=== PATIENT | male | born 1940 | race African-American/Black ===

== ENCOUNTER 2019-10-14 09:47 | Outpatient (CLI) | payer MEDICARE, SELFPAY ==
[2019-10-14 10:28] LABS: Basophils Absolute Auto 0.1 K/mm3 (0.0-0.1); Basophils Percent Auto 0.8 % (0.2-1.2); Eosinophils Absolute Auto 0.1 K/mm3 (0-0.3); Eosinophils Percent Auto 0.8 % (0-4.4); Hematocrit 37.8 % (42.0-52.0); Hemoglobin 11.8 g/dL (14.0-18.0); Immature Granulocyte Absolute 0.01 K/mm3 (0.00-0.031); Immature Granulocyte Percent A 0.2 % (0-0.5); Lymphocytes Absolute Auto 1.97 K/mm3 (0.9-3.2); Lymphocytes Percent Auto 32.9 % (18.3-44.2); Mean Corpuscular HGB Conc 31.2 g/dl (32-36); Mean Corpuscular Hemoglobin 27.8 pg (26-34); Mean Corpuscular Volume 88.9 fl (80-100); Mean Platelet Volume 11.2 fl (7.4-10.4); Monocytes Absolute Auto 0.6 K/mm3 (0.1-0.6); Neutrophils Absolute Auto 3.3 K/mm3 (1.3-6.7); Neutrophils Percent Auto 55.3 % (45.5-73.1); Platelet Count Result 198 k/mm3 (150-375); Red Blood Count 4.25 M/mm3 (4.6-6.20); Red Cell Distribution Width 14.9 % (11.5-14.5)
[2019-10-14 10:39] LABS: Alanine Aminotransferase 18 U/L (4-50); Albumin Level 3.8 g/dL (3.5-5.1); Alkaline Phosphatase 108 U/L (38-126); Aspartate Amino Transferase 27 U/L (17-59); Bilirubin,Total 0.6 mg/dL (0.2-1.3); Blood Urea Nitrogen 26 mg/dL (9-20); Calcium 8.3 mg/dL (8.4-10.2); Carbon Dioxide 27 mmol/L (22-30); Chloride 102 mmol/L (98-107); Cholesterol 137 mg/dL (0-200); Estimated Glomerular Filt Rate > 60; Glucose 131 mg/dL (75-110); HDL Direct 33 mg/dL; Potassium 3.7 mmol/L (3.4-5.0); Sodium 140 mmol/L (137-145); Triglycerides 115 mg/dL (<150)
[2019-10-14 10:50] LABS: LDL Cholesterol Direct 74 mg/dL
[2019-10-14 11:05] LABS: Add Urine Microscopic? YES; Appearance Urine Clear (Clear); Bilirubin Urine Negative (Negative); Blood Urine 1+ (Negative); Color Urine Yellow (Yellow); Glucose Urine UA Negative (Negative); Ketones Urine Negative (Negative); Leukocyte Esterase Ur Negative LEU/UL (NEGATIVE); Mucus Urine Rare /lpf; Nitrate Urine Negative (Negative); Protein Urine 2+ mg/dL (Negative); Specific Grav Ur 1.017 (1.001-1.035); Squamous Epithelial Cell Urine Rare /hpf (Few); WBC Urine 0-3 /hpf (0-3)
[2019-10-14 12:16] LABS: Hemoglobin A1C 6.9 % (<5.7)
[2019-10-14 12:18] LABS: Creatinine Urine 124.7 mg/dL
[2019-10-14 14:01] LABS: Microalbumin Urine Random > 1140.0 mg/L (0-16.7)
== END 2019-10-14 09:48 | disposition home or self-care (01) ==
PROVIDERS: PCP Family Medicine; Visit Provider Family Medicine
DX: E11.9 Type 2 diabetes mellitus without complications (principal); E78.2 Mixed hyperlipidemia; R53.83 Other fatigue; I10 Essential (primary) hypertension
CPT/HCPCS: 36415; 80053; 80061; 81001; 82043; 83036; 84443; 85025; 85027

== ENCOUNTER 2020-02-24 09:48 | Outpatient (CLI) | payer MEDICARE, SELFPAY ==
[2020-02-24 10:24] LABS: Basophils Percent Auto 0.4 % (0.2-1.2); Eosinophils Absolute Auto 0.1 K/mm3 (0-0.3); Eosinophils Percent Auto 0.7 % (0-4.4); Hematocrit 35.4 % (42.0-52.0); Hemoglobin 11.2 g/dL (14.0-18.0); Immature Granulocyte Absolute 0.03 K/mm3 (0.00-0.031); Immature Granulocyte Percent A 0.4 % (0-0.5); Lymphocytes Absolute Auto 2.01 K/mm3 (0.9-3.2); Mean Corpuscular HGB Conc 31.6 g/dl (32-36); Mean Corpuscular Hemoglobin 28.7 pg (26-34); Mean Corpuscular Volume 90.8 fl (80-100); Monocytes Absolute Auto 0.8 K/mm3 (0.1-0.6); Monocytes Percent Auto 10.1 % (2.6-8.5); Neutrophils Absolute Auto 4.6 K/mm3 (1.3-6.7); Neutrophils Percent Auto 61.4 % (45.5-73.1); Platelet Count Result 152 k/mm3 (150-375); White Blood Count 7.5 K/mm3 (4.5-10.0)
[2020-02-24 10:32] LABS: Hemoglobin A1C 6.6 % (<5.7)
[2020-02-24 10:54] LABS: Alanine Aminotransferase 13 U/L (4-50); Albumin Level 3.5 g/dL (3.5-5.1); Alkaline Phosphatase 93 U/L (38-126); Anion Gap 9.2 mmol/L (7-16); Aspartate Amino Transferase 25 U/L (17-59); Bilirubin,Total 0.5 mg/dL (0.2-1.3); Blood Urea Nitrogen 25 mg/dL (9-20); Calcium 7.9 mg/dL (8.4-10.2); Carbon Dioxide 31 mmol/L (22-30); Chloride 102 mmol/L (98-107); Estimated Glomerular Filt Rate > 60; Glucose 135 mg/dL (75-110); Potassium 3.2 mmol/L (3.4-5.0); Sodium 139 mmol/L (137-145)
== END 2020-02-24 09:49 | disposition home or self-care (01) ==
PROVIDERS: PCP Family Medicine; Visit Provider Physician Assistant
DX: D64.9 Anemia, unspecified (principal); E11.40 Type 2 diabetes mellitus with diabetic neuropathy, unspecified; I10 Essential (primary) hypertension
CPT/HCPCS: 36415; 80053; 83036; 85025

== ENCOUNTER 2020-06-23 08:16 | Outpatient (CLI) | payer MEDICARE, SELFPAY ==
[2020-06-23 08:45] LABS: Hemoglobin A1C 6.3 % (<5.7)
[2020-06-23 08:49] LABS: Alanine Aminotransferase 15 U/L (4-50); Albumin Level 3.9 g/dL (3.5-5.1); Alkaline Phosphatase 102 U/L (38-126); Anion Gap 8 mmol/L (8-16); Aspartate Amino Transferase 28 U/L (17-59); Bilirubin,Total 0.6 mg/dL (0.2-1.3); Blood Urea Nitrogen 36 mg/dL (9-20); Calcium 8.5 mg/dL (8.4-10.2); Carbon Dioxide 29 mmol/L (22-30); Chloride 106 mmol/L (98-107); Estimated Glomerular Filt Rate > 60; Glucose 137 mg/dL (75-110); Potassium 3.7 mmol/L (3.4-5.0); Sodium 143 mmol/L (137-145)
== END 2020-06-23 08:17 | disposition home or self-care (01) ==
PROVIDERS: PCP Family Medicine; Visit Provider Physician Assistant
DX: E11.29 Type 2 diabetes mellitus with other diabetic kidney complication (principal); R80.9 Proteinuria, unspecified; I10 Essential (primary) hypertension
CPT/HCPCS: 36415; 80053; 83036

== ENCOUNTER 2020-10-08 02:21 | Inpatient (IN) | payer MEDICARE, SELFPAY ==
[2020-10-08] VITALS (21 sets, daily range): BP systolic 108–159; BP diastolic 57–92; PULSE 60–102; RESP 18–27; TEMP 36.3–37; O2SAT 81–100; BMI 37.5
--- NOTE | ~2020-10-08 | XR_ITS ---
EXAMINATION: XR chest 1V portable EXAM DATE: 10/08/2020 03:23 INDICATION: Shortness of air, cough. Phlegm. TECHNIQUE: Portable AP frontal chest x-ray was obtained. Comparison is made to prior examination from 12/16/2017. FINDINGS: There is moderate amount of bilateral airspace disease with relative sparing of the left up per lobe. Some linear left midlung zone atelectasis. Possible small pleural effusions. No pneumothora x. The cardiomediastinal silhouette is prominent but magnified on this AP technique. Spine stimulator leads are new compared to 2018. IMPRESSION: Moderate amount of bilateral ill-defined airspace disease, likely edema or infection. Reviewed, dictated and finalized at location A. CUTTER
--- NOTE | ~2020-10-08 | XR_ITS ---
EXAMINATION: XR chest 1V portable INDICATION: Shortness of breath TECHNIQUE: Portable AP chest at 0532 hours COMPARISON: 10/08/2020 FINDINGS: Diffuse airspace opacities persist with interval improvement. There is no pleural effusion or pneumothorax. The heart size is normal. Neurostimulator leads project over the midthoracic spine. IMPRESSION: 1. Diffuse lung disease with interval improvement, consistent with pneumonia and/or pulmonary edema. Reviewed, dictated and finalized at location A. K PITCHER IMPRESSION: 1. Diffuse lung disease with interval improvement, consistent with pneumonia an d/or pulmonary edema.
--- NOTE | ~2020-10-08 | US_ITS ---
EXAMINATION: US venous doppler LE EXAM DATE: 10/08/2020 13:27 INDICATION: Bilateral lower extremity swelling. TECHNIQUE: Multiple grayscale, color flow and Doppler images of the lower extremity deep venous syste ms bilaterally were obtained and reviewed. There is no prior study for comparison. FINDINGS: Right side: The right common femoral, femoral and profunda veins demonstrate normal color flow, respi ratory variation, augmentation and compressibility. Compressibility, color flow confirmed within the right popliteal, posterior tibial, and greater saphenous veins. Left side: The left common femoral, femoral and profunda veins demonstrate normal color flow, respira tory variation, augmentation and compressibility. Compressibility, color flow confirmed within the l eft popliteal, posterior tibial, peroneal, and greater saphenous veins. IMPRESSION: 1. No lower extremity deep venous thrombosis bilaterally. Reviewed, dictated and finalized at location A. PAYROLL COORDINATOR
--- NOTE | ~2020-10-08 | CT_ITS ---
EXAMINATION: CT diagnostic chest wo con DATE: 10/08/2020 13:01 INDICATION: Shortness of breath TECHNIQUE: Computed tomography (CT) of the chest was performed without intravenous contrast. The dose -length product (DLP) was 546.93 mGy-cm. Automated exposure control and iterative reconstruction tech nique were employed. COMPARISON: None FINDINGS: There are small pleural effusions. There are patchy groundglass opacities of the upper lobe s, right greater than left, and the lower lobes. There is no pneumothorax. No pathologically enlarged thoracic lymph nodes are identified. The heart size is normal. Calcified coronary artery atheroscler osis is noted. There is severe thoracic spondylosis. Neurostimulator leads end in the central spinal canal at the level of the T7 vertebral body. Cysts of the liver measure up to 1.8 cm in the right he patic lobe. IMPRESSION: 1. Diffuse groundglass opacities of the lungs which could reflect pulmonary edema and/or atypical pne umonia such as COVID 19 pneumonia. 2. Small pleural effusions. Reviewed, dictated and finalized at location A. TREAT OPERATOR IMPRESSION: 1. Diffuse groundglass opacities of the lungs which could reflect pulmonary nissa ma and/or atypical pneumonia such as COVID 19 pneumonia. 2. Small pleural effusions.
--- NOTE | ~2020-10-08 | US_ITS ---
EXAMINATION: US renal BI EXAM DATE: 10/08/2020 13:27 INDICATION: Renal failure. Leg swelling. TECHNIQUE: Multiple grayscale and Doppler images of the kidneys were obtained (by a technologist who performed the scan) and subsequently reviewed. Correlation is made to CT urogram 06/24/2011. FINDINGS: Right kidney: There is normal contour and echogenicity. It measures 11.2 x 6.4 x 6.4 centimeters. Th ere are several hypoechoic regions consistent with cysts measuring up to 4 cm. Several smaller cystic regions. There is no hydronephrosis. Left kidney: There is normal contour and echogenicity. It measures 10.5 x 5.5 x 5.5 centimeters. The re is an indeterminate cystic lesion midpole of the left kidney, could be a perihilar hemorrhagic cys t, which was present on CT urogram in 2010 in this location. Other lesions are consistent with cysts. There is no hydronephrosis. Bladder unremarkable. IMPRESSION: 1. Left renal lesion most likely the hemorrhagic cyst identified on urogram 2010. Cystic renal cell cancer is less likely, can have similar appearance but would have likely demonstrated interval growth . 2. No hydronephrosis. Reviewed, dictated and finalized at location A. TAL RETOUCHER IMPRESSION: 1. Left renal lesion most likely the hemorrhagic cyst identified on urogram 20 11. Cystic renal cell cancer is less likely, can have similar appearance but wo uld have likely demonstrated interval growth. 2. No hydronephrosis.
--- NOTE | 2020-10-08 02:30 | ECG_ITS ---
Measurements Intervals [place] Rate: 83 P: 213 LA: 81 QRS: 2 QRSD: 106 T: 143 QT: 381 QTc: 450 Interpretive Statements ATRIAL FIBRILLATION DELAYED PRECORDIAL R/S TRANSITION ST-T WAVE ABNORMALITY IN HIGH LATERAL LEADS- CONSIDER ISCHEMIA ABNORMAL ECG Electronically Signed On 10-08-2020 7:40:56 SKILLED HELPER by Neo Nieto D.O.
[2020-10-08 03:00] LABS: Basophils Absolute Auto 0.1 K/mm3 (0.0-0.1); Basophils Percent Auto 0.4 % (0.2-1.2); Hematocrit 37.9 % (42.0-52.0); Hemoglobin 12.2 g/dL (14.0-18.0); Immature Granulocyte Absolute 0.13 K/mm3 (0.00-0.031); Immature Granulocyte Percent A 0.9 % (0-0.5); Lymphocytes Percent Auto 8.5 % (18.3-44.2); Mean Corpuscular HGB Conc 32.2 g/dl (32-36); Mean Corpuscular Hemoglobin 28.4 pg (26-34); Mean Corpuscular Volume 88.1 fl (80-100); Mean Platelet Volume 11.9 fl (7.4-10.4); Monocytes Absolute Auto 1.1 K/mm3 (0.1-0.6); Monocytes Percent Auto 8.1 % (2.6-8.5); Neutrophils Absolute Auto 11.5 K/mm3 (1.3-6.7); Neutrophils Percent Auto 82.1 % (45.5-73.1); Nucleated Red Blood Cells Perc 0.1 % (0.0-0.2); Platelet Count Result 309 k/mm3 (150-375); Red Cell Distribution Width 17.1 % (11.5-14.5); White Blood Count 14.1 K/mm3 (4.5-10.0)
[2020-10-08 03:13] LABS: Anion Gap 15 mmol/L (8-16); Blood Urea Nitrogen 58 mg/dL (9-20); Calcium 9.3 mg/dL (8.4-10.2); Carbon Dioxide 23 mmol/L (22-30); Chloride 105 mmol/L (98-107); Estimated CRCL calculation 30 ml/min; Estimated Glomerular Filt Rate 33; Glucose 258 mg/dL (75-110); Potassium 3.9 mmol/L (3.4-5.0); Sodium 143 mmol/L (137-145)
[2020-10-08 03:22] LABS: NT Pro B Type Natriuretic Pept 15300 PG/ML (5-100)
[2020-10-08 03:32] LABS: Base Excess ABG -2.1 mEq/l (+/-2.0); Carboxyhemoglobin 0.9 % THb (0-2.0); Fractional Inspired Oxygen 50 %; HCO3 ABG 20.9 mEq/l (22.0-26.0); Methemoglobin ABG 0.3 %THb (0-1.5); Oxygen Saturation ABG 89.6 % (95.0-100.0); PO2 ABG 52.8 mmHg (80.0-100.0); PO2 FiO2 Ratio Arterial Blood 1.06 %; Reduced Hemoglobin 14.8 %THb (0-5.0)
[2020-10-08 03:33] LABS: Device NON-INVASIVE VENT; Modified Allen's Test Pass; Non-Invasive Vent Rate 4 /MIN; Site Drawn RIGHT RADIAL
[2020-10-08 03:34] LABS: Non-Invasive Expiratory Pressure 8 CMH2O; Non-Invasive Inspiratory Pressure 14 CMH2O
[2020-10-08] MEDS: FUROSEMIDE INJ 40 MG/4 ML VIAL IV PUSH ×2 (03:35→14:10)
[2020-10-08 03:46] LABS: INR 1.3; Partial Thromboplastin Time 25.8 SECONDS (22.3-36.8); Prothrombin Time 16.4 Seconds (11.1-14.7)
--- NOTE | 2020-10-08 03:59 | ED.SOB ---
HPI - SOB/Dyspnea General Chief Complaint: Shortness of Breath/Dyspnea Stated Complaint: Sob Time Seen by Provider: 10/08/20 02:26 History of Present Illness HPI Narrative: Patient is a 80-year-old male who presents ER with shortness of breath. Worsening over the last 3-4 days. Denies orthopnea or chest pain. No history of heart failure. He does take Lasix and hydrochlorothiazide. Reports he has increasing edema to his lower extremities over the same period of time. No fevers/chills. He does have nonproductive cough. Of note she did receive his first dose of Covid vaccine this week. Related Data Allergies Allergy/AdvReac Type Severity Reaction Status Date / Time No Known Allergies Unverified 08/15/20 08:35 Review of Systems Review of Systems: All systems reviewed & are unremarkable except as noted in HPI and below Constitutional: Constitutional: Denies chills, Denies fever(s) and Denies weakness ENT: Denies nasal congestion and Denies sore throat Cardiovascular: Cardiovascular: Denies chest pain, Denies rapid heart rate and Denies radiating jaw, neck or arm pain Respiratory: Respiratory: Reports cough, Reports dyspnea and Denies wheezing Gastrointestinal: Gastrointestinal: Denies abdominal pain, Denies diarrhea, Denies nausea and Denies vomiting Musculoskeletal: Musculoskeletal: Denies myalgias and Denies muscle cramps Comments: Lower extremity edema PMFSH Past Medical History Medical History (Updated 10/08/20 @ 06:25 by Justyn Yoder MD) Diabetes mellitus with proteinuria Essential (primary) hypertension Mixed hyperlipidemia Surgical History Surgical History Status post bilateral knee replacements Social History Social History Years smoked: 3 Smoking status: Former smoker Tobacco type: cigarettes Second hand tobacco smoke exposure: No Smoking end date: 08/04/1965 Alcohol intake: never Substance use: never Substance use type: does not use Gender identity (if verbalized by the patient): Male Exam Narrative: Exam Narrative: GENERAL: Uncomfortable-appearing, well-nourished, and in no acute distress. HEAD: Normocephalic, atraumatic. ENT: Mucous membranes moist. CHEST: Coarse rales throughout with increased respiratory rate. HEART: Irregular rhythm with regular rate. Normal peripheral pulses. ABDOMEN: Soft, nontender, nondistended. EXTREMITIES: Normal range of motion. 3+ edema. SKIN: Warm, dry, no rash. NEURO: Alert and oriented x3. PSYCH: Normal mood and affect. Course Course Emergency Course: Admit to the hospitalist. May have pneumonia in addition to pulmonary edema. Will start on abx and swab for covid. Doing well on BiPAP Vital Signs Vital signs: Vital Signs Temperature 97.8 F 10/08/20 02:30 Pulse Rate 80 10/08/20 02:30 Respiratory Rate 24 H 10/08/20 02:30 Blood Pressure 159/87 H 10/08/20 02:30 Pulse Oximetry 81 L 10/08/20 02:30 Temperature 98.2 F 10/08/20 05:45 Pulse Rate 102 H 10/08/20 05:58 Respiratory Rate 27 H 10/08/20 05:58 Blood Pressure 151/76 H 10/08/20 05:45 Pulse Oximetry 95 10/08/20 05:58 MDM - SOB/Dyspnea Lab Data Result diagrams: 10/08/20 02:55 10/08/20 02:55 Labs: Lab Results 10/08/20 10/08/20 10/08/20 Range/Units 02:55 02:55 03:16 WBC 14.1 H (4.5-10.0) K/mm3 RBC 4.30 L (4.6-6.20) M/mm3 Hgb 12.2 L (14.0-18.0) g/dL Hct 37.9 L (42.0-52.0) % MCV 88.1 (80-100) fl MCH 28.4 (26-34) pg MCHC 32.2 (32-36) g/dl RDW 17.1 H (11.5-14.5) % Plt Count 309 D (150-375) k/mm3 MPV 11.9 H (7.4-10.4) fl Immature Gran % (Auto) 0.9 H (0-0.5) % Neut % (Auto) 82.1 H (45.5-73.1) % Lymph % (Auto) 8.5 L (18.3-44.2) % [place] % (Auto) 8.1 (2.6-8.5) % Eos % (Auto) 0.0 (0-4.4) % Baso % (Auto) 0.4 (0.2-1.2) % Lymph # (Aut
[2020-10-08 05:09] LABS: Lactic Acid Reflex 2.5 mmol/L (0.7-2.1)
--- NOTE | 2020-10-08 07:11 | PC.NURSE ---
This patient, Khalif Yanez, was admitted to IMU Room 231-01. Patient/family oriented to hospital policies and general routines including ID bracelet, bed and alarms, visiting hours, pain management, procedures, bathroom and other care routines, personal items, smoking policy, room service/diet, and visiting hours. Information on how to activate the Rapid Response Team has been discussed. Patient/Family are encouraged to report perceived risks to care and to ask questions if they do not understand what they are told or what they should do.
[2020-10-08 07:56] LABS: Reflex Lactic Acid Yes or No Add Lactic
[2020-10-08 07:56] LABS: Glucose Point of Care 216 (65-105)
--- NOTE | 2020-10-08 08:00 | ECG_ITS ---
Measurements Intervals [place] Rate: 64 P: 71 SC: 366 QRS: -5 QRSD: 94 T: 160 QT: 400 QTc: 414 Interpretive Statements ATRIAL FIBRILLATION CANNOT RULE OUT SEPTAL INFARCT, AGE INDETERMINATE ST-T WAVE ABNORMALITY IN LAT/HIGH LAT LEADS- CONSIDER ISCHEMIA BASELINE ARTIFACT- I, II, III, AVR, AVL, AVF, V2 ABNORMAL ECG Electronically Signed On 10-08-2020 9:19:08 RUBBER THREAD SPOOLER by Neo Nieto D.O.
[2020-10-08 10:30] LABS: Lactic Acid 1.8 mmol/L (0.7-2.1)
[2020-10-08 10:43] LABS: Troponin I 0.048 ng/mL (0.000-0.034)
--- NOTE | 2020-10-08 11:32 | PM.IMHP ---
H&P: HPI History of Present Illness Date/Time: 10/08/20 11:32 Chief Complaint: shortness of breath Narrative: Khalif Yanez is a 80 year old male who presents ER with shortness of breath which has started since past few days now. he also noted new swelling in his legs that is new. he recently reprots getting a COVID vaccine before start of these symtpoms. he also repors some cough. no fever, chills. no abdoinal pain, nausea, vomtiing. he was ntoed to ahve elevated BNP, atrial fibrillation which is new, congestive chagnes in chest xary. he gto lasix 40 mg iv in the ed and has not mademuch urine. he is currenlty under PUI due to shortness of breath. He ada any prior history of heart disease in the apst. He was placed on BIPAP in [facility] ED and currenlty is wearing them. he denies any worsening of his shortness of breath and feels a little better now since placed on BIPAP Review of Systems Review of Systems: All systems reviewed & are unremarkable except as noted in HPI and below Constitutional: Constitutional: Denies chills, Denies fever(s) and Denies weakness ENT: Denies nasal congestion and Denies sore throat Cardiovascular: Cardiovascular: Denies chest pain, Denies rapid heart rate, Denies radiating jaw, neck or arm pain and Reports dyspnea Respiratory: Respiratory: Reports cough, Reports dyspnea and Denies wheezing Gastrointestinal: Gastrointestinal: Denies abdominal pain, Denies diarrhea, Denies nausea and Denies vomiting Musculoskeletal: Musculoskeletal: Denies myalgias and Denies muscle cramps Neurologic: Denies weakness Allergic/Immunologic: Allergic/Immunologic: Denies wheezing PMFSH Past Medical History Medical History (Updated 10/08/20 @ 12:26 by Vijay Goldsmith MD) Diabetes mellitus with proteinuria Essential (primary) hypertension Mixed hyperlipidemia Surgical History Surgical History Status post bilateral knee replacements Family History Family History (Updated 10/08/20 @ 07:13 by Teresa Liz RN) Father Cerebrovascular accident Mother Hypertension Sibling Hypertension Social History Social History Smoking packs per day: 0.5 Smoking cigarettes per day: 10.0 Years smoked: 3 Smoking pack-years: 1.50 Smoking status: Former smoker Tobacco type: cigarettes Second hand tobacco smoke exposure: No Smoking end date: 08/04/65 Alcohol intake: never Substance use: never Substance use type: does not use Gender identity (if verbalized by the patient): Male Spiritual care concerns: No Meds Home Medications and Allergies Home Medications Medication Instructions Recorded Confirmed Type blood pressure monitor #1 each 01/10/20 08/15/20 Rx blood sugar diagnostic #100 each 01/10/20 08/15/20 Rx blood-glucose meter #1 each 01/10/20 08/15/20 Rx lancets #200 each 01/10/20 08/15/20 Rx metformin 1,000 mg tablet 1,000 mg PO BID #180 tablet 07/10/20 10/08/20 Rx atorvastatin 10 mg tablet 10 mg PO DAILY #90 tablet 07/20/20 10/08/20 Rx furosemide 40 mg tablet 40 mg PO QAM #90 tablet 09/29/20 10/08/20 Rx tramadol 50 mg tablet 50 mg PO Q8H PRN #90 tablet 09/29/20 10/08/20 Rx Victoza 2-Vidal 1.2 mg SUBCUT DAILY 10/08/20 10/08/20 History amlodipine 5 mg PO DAILY 10/08/20 10/08/20 History diclofenac sodium 75 mg PO BID 10/08/20 10/08/20 History irbesartan-hydrochlorothiazide 1 tablet PO DAILY 10/08/20 10/08/20 History pioglitazone 45 mg PO DAILY 10/08/20 10/08/20 History Allergies Allergy/AdvReac Type Severity Reaction Status Date / Time No Known Allergies Verified 10/08/20 06:58 Vital Signs Vital Signs - 24 hr 10/08/20 02:30 10/08/20 03:05 10/08/20 04:06 Temperature 97.8 F Pulse Rate 80 71 64 Respiratory Rate 24 H 26 H 18 Blood Pressure 159/87 H 132/91 H Pulse Oximetry 81 L 95 97 10/08/20 05:44 10/08/20 05:45 10/08/20 05:55 Temperature 98.2 F
[2020-10-08 11:35] LABS: Glucose Point of Care 241 (65-105)
[2020-10-08 12:55] LABS: Basophils Percent Auto 0.2 % (0.2-1.2); Hematocrit 31.3 % (42.0-52.0); Hemoglobin 9.9 g/dL (14.0-18.0); Immature Granulocyte Absolute 0.06 K/mm3 (0.00-0.031); Immature Granulocyte Percent A 0.7 % (0-0.5); Lymphocytes Absolute Auto 0.93 K/mm3 (0.9-3.2); Lymphocytes Percent Auto 10.8 % (18.3-44.2); Mean Corpuscular HGB Conc 31.6 g/dl (32-36); Mean Corpuscular Hemoglobin 27.9 pg (26-34); Mean Corpuscular Volume 88.2 fl (80-100); Mean Platelet Volume 11.4 fl (7.4-10.4); Neutrophils Absolute Auto 6.6 K/mm3 (1.3-6.7); Neutrophils Percent Auto 76.3 % (45.5-73.1); Nucleated Red Blood Cells Perc 0.2 % (0.0-0.2); Platelet Count Result 218 k/mm3 (150-375); Red Blood Count 3.55 M/mm3 (4.6-6.20); Red Cell Distribution Width 16.8 % (11.5-14.5); White Blood Count 8.6 K/mm3 (4.5-10.0)
[2020-10-08 13:04] LABS: Hemoglobin A1C 6.8 % (<5.7)
[2020-10-08 13:11] LABS: INR 1.3; Prothrombin Time 16.3 Seconds (11.1-14.7)
[2020-10-08 13:31] LABS: Troponin I 0.041 ng/mL (0.000-0.034)
[2020-10-08] MEDS: HEPARIN SODIUM 5,000 UNITS/ML VIAL 7500 UNITS IV PUSH (14:10)
[2020-10-08] MEDS: HEPARIN SOD/D5W 100 UNITS/ML 25,000 UNITS/250 ML BAG 15 UNITS IV CONT (14:11)
[2020-10-08] MEDS: HYDROcodone/acetaminophen (*CRX) 5-325 MG TABLET 1 TAB PO (14:11)
[2020-10-08 14:48] LABS: Add Urine Microscopic? YES; Appearance Urine Clear (Clear); Bacteria Urine Trace /hpf; Bilirubin Urine Negative (Negative); Blood Urine Negative (Negative); Color Urine Yellow (Yellow); Glucose Urine UA Negative (Negative); Hyaline Casts Urine 15-19 /lpf; Ketones Urine Negative (Negative); Leukocyte Esterase Ur Negative LEU/UL (NEGATIVE); Mucus Urine Rare /lpf; Nitrate Urine Negative (Negative); Protein Urine 2+ mg/dL (Negative); RBC Urine 0-2 /hpf (0-2); Specific Grav Ur 1.015 (1.001-1.035); Squamous Epithelial Cell Urine Occasional /hpf (Few); WBC Urine 0-3 /hpf (0-3)
[2020-10-08 15:52] LABS: Glucose Point of Care 211 (65-105)
[2020-10-08] MEDS: INSULIN ASPART (*BKC) 100 UNITS/ML SUB-Q (16:53)
[2020-10-08] MEDS: amLODIPine BESYLATE 5 MG TABLET PO (16:53)
[2020-10-08] MEDS: ATORVASTATIN 10 MG TABLET PO (16:53)
[2020-10-08] MEDS: FUROSEMIDE INJ 100 MG/10 ML VIAL 80 MG IV PUSH (16:54)
[2020-10-08 18:31] LABS: Anion Gap 10 mmol/L (8-16); Blood Urea Nitrogen 70 mg/dL (9-20); Calcium 8.9 mg/dL (8.4-10.2); Carbon Dioxide 25 mmol/L (22-30); Chloride 105 mmol/L (98-107); Estimated CRCL calculation 32 ml/min; Estimated Glomerular Filt Rate 35; Glucose 178 mg/dL (75-110); Potassium 3.7 mmol/L (3.4-5.0); Sodium 140 mmol/L (137-145)
[2020-10-08 18:35] LABS: NT Pro B Type Natriuretic Pept 13500 PG/ML (5-100)
[2020-10-08 18:42] LABS: Creatinine Urine 195.3 mg/dL; Urea Random Urine 596 MG/DL
[2020-10-08 18:49] LABS: Sodium Urine Random 17 meq/L
[2020-10-08 19:57] LABS: Glucose Point of Care 158 (65-105)
[2020-10-08] MEDS: HEPARIN SODIUM 5,000 UNITS/ML VIAL 3500 UNITS IV PUSH (23:38)
[2020-10-09] VITALS (17 sets, daily range): BP systolic 129–149; BP diastolic 71–84; PULSE 64–110; RESP 18–22; TEMP 35.9–36.5; O2SAT 91–100
[2020-10-09] MEDS: HEPARIN SOD/D5W 100 UNITS/ML 25,000 UNITS/250 ML BAG 17 UNITS IV CONT (05:29)
[2020-10-09 06:21] LABS: Partial Thromboplastin Time 70.4 SECONDS (22.3-36.8)
[2020-10-09 06:25] LABS: Anion Gap 8 mmol/L (8-16); Blood Urea Nitrogen 66 mg/dL (9-20); Calcium 8.5 mg/dL (8.4-10.2); Carbon Dioxide 30 mmol/L (22-30); Chloride 102 mmol/L (98-107); Estimated CRCL calculation 33 ml/min; Estimated Glomerular Filt Rate 37; Glucose 180 mg/dL (75-110); Potassium 3.3 mmol/L (3.4-5.0); Sodium 140 mmol/L (137-145)
[2020-10-09 06:50] LABS: Basophils Absolute Auto 0.1 K/mm3 (0.0-0.1); Basophils Percent Auto 0.7 % (0.2-1.2); Eosinophils Percent Auto 0.6 % (0-4.4); Hematocrit 32.9 % (42.0-52.0); Hemoglobin 10.4 g/dL (14.0-18.0); Immature Granulocyte Absolute 0.06 K/mm3 (0.00-0.031); Immature Granulocyte Percent A 0.8 % (0-0.5); Lymphocytes Absolute Auto 1.29 K/mm3 (0.9-3.2); Mean Corpuscular HGB Conc 31.6 g/dl (32-36); Mean Corpuscular Volume 88.7 fl (80-100); Mean Platelet Volume 11.7 fl (7.4-10.4); Monocytes Percent Auto 13.2 % (2.6-8.5); Neutrophils Absolute Auto 4.8 K/mm3 (1.3-6.7); Neutrophils Percent Auto 66.7 % (45.5-73.1); Platelet Count Result 218 k/mm3 (150-375); Red Blood Count 3.71 M/mm3 (4.6-6.20); Red Cell Distribution Width 16.6 % (11.5-14.5); White Blood Count 7.2 K/mm3 (4.5-10.0)
[2020-10-09] MEDS: HEPARIN SODIUM 5,000 UNITS/ML VIAL 3500 UNITS IV PUSH ×2 (06:59→14:24)
[2020-10-09 08:41] LABS: Glucose Point of Care 165 (65-105)
[2020-10-09] MEDS: amLODIPine BESYLATE 5 MG TABLET PO (09:56)
[2020-10-09] MEDS: ATORVASTATIN 10 MG TABLET PO (09:56)
[2020-10-09] MEDS: FUROSEMIDE INJ 100 MG/10 ML VIAL 80 MG IV PUSH ×2 (09:57→17:45)
--- NOTE | 2020-10-09 11:11 | PM.CNCAR ---
Assessment and Plan Assessment and plan (1) Congestive heart failure: Code(s): I50.9 - Heart failure, unspecified Status: Acute Assessment and Plan: New onset heart failure. Uncertain if this is diastolic or systolic it to this point. Will order a 2D echocardiogram Doppler. Intake and output as well as daily weights. continue IV diuretics. We will replace his potassium 40 mEq p.o. x1. Will initiate low-dose carvedilol 3.125 mg p.o. b.i.d.. Continue ARB for now. Limit NSAID use and because of his heart failure and acute on chronic renal failure, I am going to stop his diclofenac. Likely need ischemic workup at some point. This will likely be performed as an outpatient depending on the results of the above tests and response to treatment. (2) Atrial fibrillation: Code(s): I48.91 - Unspecified atrial fibrillation Status: Acute Assessment and Plan: Continue heparin drip for now and will transition to direct oral anticoagulant at some point before discharge. Will hold off at this point in case invasive workup will need to be performed (3) Hypertension associated with diabetes: Code(s): E11.59 - Type 2 diabetes mellitus with other circulatory complications; I15.2 - Hypertension secondary to endocrine disorders Status: Acute Assessment and Plan: Will DC amlodipine. Start carvedilol as above (4) Acute on chronic kidney failure: Code(s): N17.9 - Acute kidney failure, unspecified; N18.9 - Chronic kidney disease, unspecified Status: Acute Assessment and Plan: Will consult Dr. Crouch (5) Hyperlipidemia associated with type 2 diabetes mellitus: Code(s): E11.69 - Type 2 diabetes mellitus with other specified complication; E78.5 - Hyperlipidemia, unspecified Status: Acute Assessment and Plan: Increase atorvastatin to 20 mg daily (6) Elevated troponin: Code(s): R77.8 - Other specified abnormalities of plasma proteins Status: Acute Assessment and Plan: This is likely secondary to heart failure and renal failure rather than acute plaque rupture History of Present Illness History of Present Illness Consult date/time: 10/09/20 11:11 Requesting physician: Vijay Goldsmith MD Consult reason: congestive heart failure Reason For Visit: respiratory failure, volume overload,covid pui,hansel Narrative: Date of service 10/09/2020 History: Patient is a 80-year-old male who has no known cardiac history that he is aware of. He is on chronic furosemide because of lower extremity swelling. This is provided through his primary care provider Dr. Ching. He also has other risk factors for cardiac disease including diabetes, hypertension, hyperlipidemia, age, obesity. He presented to the hospital because of worsening shortness of breath. He states that he really noticed severe shortness of breath over the past 3 or 4 days. He has noticed worsening swelling also over the same timeframe. He has developed cough which is generally nonproductive. No fevers or chills. He has no syncope, presyncope, orthopnea, palpitations or chest pain. He noticed that his shortness of breath was significant enough to the point that he would be dyspneic doing his activities of daily living. He was having some paroxysmal nocturnal dyspnea also. Came to the hospital had a markedly elevated BNP. He was started on diuretics. Troponin is minimally elevated. He is feeling slightly better. He is in the process of being ruled out for COVID. EKG shows atrial fibrillation. This is also new diagnosis for him. Review of Systems Review of Systems: All systems reviewed & are unremarkable except as noted in HPI and below Constitutional: Constitutional: Reports fatigue and Reports weakness Eyes: Eyes: Denies blurry vision ENT: Reports Normal hearing present Cardiovascular: Cardiovascular: Denies chest pain Respiratory: Respiratory: Reports dyspnea and Reports dyspnea on
[2020-10-09] MEDS: INSULIN ASPART (*BKC) 100 UNITS/ML SUB-Q (12:35)
[2020-10-09] MEDS: POTASSIUM CHLORIDE 20 MEQ TABLET 40 MEQ PO (12:35)
--- NOTE | 2020-10-09 13:27 | PM.IMPN ---
Progress Note: A&P Assessment and Plan (1) Elevated troponin: Code(s): R77.8 - Other specified abnormalities of plasma proteins Status: Acute Assessment and Plan: likely due to a type ii mi (2) Hyperlipidemia associated with type 2 diabetes mellitus: Code(s): E11.69 - Type 2 diabetes mellitus with other specified complication; E78.5 - Hyperlipidemia, unspecified Status: Chronic Assessment and Plan: continue home meds (3) Acute on chronic kidney failure: Code(s): N17.9 - Acute kidney failure, unspecified; N18.9 - Chronic kidney disease, unspecified Status: Chronic Assessment and Plan: likely prerenal azotemia continue to monitor (4) Hypertension associated with diabetes: Code(s): E11.59 - Type 2 diabetes mellitus with other circulatory complications; I15.2 - Hypertension secondary to endocrine disorders Status: Acute Assessment and Plan: continue home meds (5) Atrial fibrillation: Code(s): I48.91 - Unspecified atrial fibrillation Status: Acute Assessment and Plan: rate controlled (6) Pneumonia: Code(s): J18.9 - Pneumonia, unspecified organism Status: Acute Assessment and Plan: treated with azithromycin and Rocephin (7) Congestive heart failure: Code(s): I50.9 - Heart failure, unspecified Status: Acute Assessment and Plan: diuresed well improved (8) Volume overload: Code(s): E87.70 - Fluid overload, unspecified Status: Acute Assessment and Plan: responded to diuresis. Subjective Date/time seen: 10/09/20 13:27 States that he feels much better Review of Systems Review of Systems: Narrative: patient presented to ED due to sob, cough. Constitutional: Comments: no fevers, no rigors, no chills. ENT: Comments: no nasal congestion. Cardiovascular: Comments: pnd, sob, leg swelling. Respiratory: Comments: sob. Gastrointestinal: Comments: no n/v/abdominal pain. Musculoskeletal: Comments: b/l le swelling Integumentary/Breasts: Comments: no rashes Neurologic: Comments: no sensory motor deficit Exam Narrative: Exam Narrative: Lying in bed. Const: General: no acute distress, alert, awake, Physically active and other (chronically ill looking.) Nutritional Appearance: overweight Orientation/consciousness: patient oriented x3 HENMT: Head: normal to inspection and normocephalic Ears: hearing grossly normal bilaterally General nose exam: Normal external nose present Face and sinus: normal facial exam Eyes: General: appearance normal, both eyes and all related structures Pupils: Equal, round and reactive pupils present EOM: EOMs intact bilaterally Neck: Neck: no lymphadenopathy, supple and no JVD Resp: Effort & Inspection: normal respiratory effort and able to speak in complete sentences Auscultation: crackles bilateral Cardio: Rhythm: other (irregularly irregular) GI: Inspection: normal to inspection GI Palp: Yes Soft to palpation and Yes No hepatosplenomegaly present Skin: Rashes: no rashes Neuro: General: patient oriented x3 and CN's II-XI intact bilaterally Cranial nerves: Yes CN's II-XII intact bilaterally and Yes Equal, round and reactive pupils present Cognition (Neuro): normal cognition Speech: normal speech Gait exam (Neuro): Normal gait present Motor exam (neuro): 5/5 motor strength present throughout Extrem: General: pedal edema bilaterally 2+ Objective Data Vital Signs Vital Signs: Vital Signs - 24 hr 10/08/20 14:00 10/08/20 15:54 10/08/20 16:00 Temperature 98.6 F Pulse Rate 76 60 68 Respiratory Rate 18 Blood Pressure 128/68 Pulse Oximetry 99 90 10/08/20 18:57 10/08/20 19:53 10/08/20 20:00 Temperature 98.6 F Pulse Rate 75 71 69 Respiratory Rate 20 Blood Pressure 128/72 Pulse Oximetry 90 96 94 10/08/20 22:00 10/08/20 22:17 10/08/20 23:59 Temperature 97.4 F L Pulse Rate 63 6
[2020-10-09 13:46] LABS: Partial Thromboplastin Time 60.3 SECONDS (22.3-36.8)
[2020-10-09 13:57] LABS: Glucose Point of Care 222 (65-105)
[2020-10-09] MEDS: HEPARIN SOD/D5W 100 UNITS/ML 25,000 UNITS/250 ML BAG 21 UNITS IV CONT (14:21)
--- NOTE | 2020-10-09 15:31 | PM.CNNEP ---
Assessment and Plan Assessment and plan (1) LINDSEY (acute kidney injury): Code(s): N17.9 - Acute kidney failure, unspecified Status: Acute Assessment and Plan: baseline creatinine ~ 1.0 - 1.3mg/dl (as of June 2020) however, has risk factors for CKD (HTN, DM, vascular disease, age) acute medical issues could be responsible for higher creatinine now but cannot discount possible kidney disease progression renal ultrasound without obstruction urine lytes suggest prerenal azotemia (despite evidence of volume overload -- possible depressed EF(?); follow-up on Echo) follow trend of renal function with ongoing diuresis (2) Congestive heart failure: Code(s): I50.9 - Heart failure, unspecified Status: Acute Assessment and Plan: new diagnosis -- systolic versus diastolic versus both? follow-up on Echo Cardiology following (3) Atrial fibrillation: Code(s): I48.91 - Unspecified atrial fibrillation Status: Acute Assessment and Plan: rate control strategy anticoaguation (4) Hypertension: Code(s): I10 - Essential (primary) hypertension Status: Chronic Assessment and Plan: reasonable control follow trend of hemodynamics (5) Diabetes: Code(s): E11.9 - Type 2 diabetes mellitus without complications Status: Chronic Assessment and Plan: follow accuchecks glycemic control Will continue to follow. History of Present Illness Reason for Consult Consult date: 10/09/20 Reason for consult: acute renal failure Chief Complaint Chief complaint: respiratory failure, volume overload,covid pui,lindsey History of Present Illness Narrative: The patient is a 80-year-old male with a past medical history as outlined below who presented to [facility] Emergency room with complaints of shortness of breath. His shortness of breath appears to have been going on for last several days but seem to acutely worsened in the last 3 or 4 days. Associated symptoms with shortness of breath include worsening lower extremity edema associated with a nonproductive cough. He denies any fevers, chills, palpitations, chest pain, dizziness, lightheadedness, or orthopnea. As his shortness of breath was progressively getting worse and he noticed that it seemed to be more prominent with just activities of his daily living he came to the hospital for further evaluation. Workup and evaluation emergency room demonstrated the patient to be hemodynamically stable but in mild respiratory distress secondary to shortness of breath. Routine blood test demonstrated an elevated BUN and creatinine above his baseline along with an elevated BNP and elevated troponin. His chest x-ray also demonstrated findings consistent with pulmonary vascular congestion but there was some concern that covert 19 May be playing a role as well. His EKG showed atrial fibrillation which appears to be a new diagnosis along with the a for mentioned findings of congestive heart failure. He was started on IV diuretic therapy and BiPAP was used to stabilize his respiratory status with subsequent admission to hospital for further evaluation and therapy Since his admission, his urine output has improved with the use of IV diuretics and his respiratory status seems to be doing somewhat better. His covert 19 testing is still pending and has been started on anticoagulation for his atrial fibrillation with efforts focused on rate control for this issue. Cardiology has already seen the patient with an echocardiogram pending to assess what kind of heart failure we are dealing with. Overall, he seems to doing somewhat better. Renal consultation was requested due to his acute kidney injury/acute renal failure. From review of his records, the patient the baseline creatinine runs around 1.0 - 1.3 mg/dL as of June of 2020. However, his admission creatinine was 2.2 mg/dL although it has been maintained at this anton
[2020-10-09 17:06] LABS: Glucose Point of Care 178 (65-105)
[2020-10-09 18:03] LABS: SARS-CoV-2 RNA PCR Negative
[2020-10-09 20:13] LABS: Glucose Point of Care 260 (65-105)
[2020-10-09] MEDS: carvediloL 3.125 MG TABLET PO (21:15)
[2020-10-09 21:29] LABS: Partial Thromboplastin Time 140.6 SECONDS (22.3-36.8)
[2020-10-10] VITALS (15 sets, daily range): BP systolic 120–150; BP diastolic 58–90; PULSE 67–89; RESP 16–20; TEMP 36.3–36.6; O2SAT 95–100
--- NOTE | 2020-10-10 | ECHO_ITS ---
Patient Info Name: Khalif Yanez Age: 80 years : 1940 Gender: Male Ht: 70 in Wt: 261 lbs BSA: 2.47 m2 HR: 90 bpm BP: 133 / 90 mmHg Heart Rhythm: Atrial Fibrillation Technical Quality: Fair Exam Date: 10/10/2020 11:37 AM Exam Location: [facility] Pulmonary Patient Status: Inpatient Admit Date: 10/08/2020 Staff Ordering Physician: Esthela Rodriguez DO Uniform Room Attendant: Marleen Soni RDCS Attending Provider: Vijay Goldsmith MD Referring Physician: Michael DAWSON; Exam Type: CA echo doppler color flow Study Info Indications R60.9 - Edema, unspecified - RESPIRATORY FAILURE Complete two-dimensional, color flow and Doppler transthoracic echocardiogram is performed. Summary 1. Complete two-dimensional, color flow and Doppler transthoracic echocardiogram is performed. 2. Left ventricular chamber dimension is normal. 3. Left ventricular systolic function is normal, estimated at 65-70%. 4. There is mildly increased left ventricular wall thickness. 5. The left ventricular diastolic function is indeterminate. 6. Right ventricular chamber dimension is mildly enlarged. 7. Left atrial chamber dimension is moderately enlarged. 8. Right atrial chamber dimension is mildly enlarged. 9. There is mild mitral valve regurgitation. 10. There is mild tricuspid valve regurgitation. 11. Moderate pulmonary hypertension, estimated pulmonary arterial systolic pressure is 59 mmHg. 12. There is moderate pulmonic regurgitation. Left Ventricle Left ventricular chamber dimension is normal. Left ventricular systolic function is normal, estimated at 65-70%. There is mildly increased left ventricular wall thickness. The left ventricular diastolic function is indeterminate. Right Ventricle Right ventricular chamber dimension is mildly enlarged. Right ventricular systolic function is normal. Left Atria Left atrial chamber dimension is moderately enlarged. Right Atria Right atrial chamber dimension is mildly enlarged. Atrial Septum Intact interatrial septum visualized by color flow imaging. Aortic Valve The aortic valve is trileaflet. There is mild aortic valve sclerosis. There is no aortic valve stenosis. There is trace aortic valve regurgitation. Pulmonic Valve The pulmonic valve is normal. There is no pulmonic valve stenosis. There is moderate pulmonic regurgitation. Mitral Valve The mitral valve has normal leaflets. There is no mitral valve stenosis. There is mild mitral valve regurgitation. Tricuspid Valve The tricuspid valve leaflets are normal. There is no significant tricuspid valve stenosis. There is mild tricuspid valve regurgitation. Moderate pulmonary hypertension, estimated pulmonary arterial systolic pressure is 59 mmHg. Inferior Vena Cava Dilated inferior vena cava with <50% collapse upon inspiration consistent with elevated right atrial pressure, 15 mmHg. Aorta The aortic root size at the sinus of Valsalva is normal. The prox ascending aorta size is normal. Left Ventricular Outflow Tract Name Value Normal LVOT 2D LVOT Diameter 2.1 cm LVOT Doppler LVOT Peak Velocity
[2020-10-10 07:58] LABS: Glucose Point of Care 187 (65-105)
--- NOTE | 2020-10-10 07:59 | WPDCDIQUERY2 ---
CDI Query Clarification Request -10/08 ABG's pH 7.460, pCO2 30.0, pO2 52.8, HCO3 20.9, 89%sats, on bipap with FiO2 50. -Pt placed on bipap with 5L O2 -Acute respiratory failure documented by the EDP and in the H&P -Acute respiratory failure not on problem list 10/09 Please clarify if acute respiratory failure has been ruled in or ruled out. <Bethany Kumar RN - Last Filed: 10/10/20 08:08> acute respiratory failure has been ruled in <Darlene Slater MD - Last Filed: 10/11/20 13:44>
[2020-10-10] MEDS: ATORVASTATIN 20 MG TABLET PO (08:20)
[2020-10-10] MEDS: carvediloL 3.125 MG TABLET PO (08:20)
[2020-10-10] MEDS: FUROSEMIDE INJ 100 MG/10 ML VIAL 80 MG IV PUSH (08:21)
[2020-10-10 09:20] LABS: Partial Thromboplastin Time 66.9 SECONDS (22.3-36.8)
[2020-10-10] MEDS: HEPARIN SODIUM 5,000 UNITS/ML VIAL 3500 UNITS IV PUSH (09:57)
[2020-10-10] MEDS: HEPARIN SOD/D5W 100 UNITS/ML 25,000 UNITS/250 ML BAG 20 UNITS IV CONT ×2 (09:58→15:08)
--- NOTE | 2020-10-10 11:04 | PM.PNCARD ---
Progress Note: A&P Assessment and Plan (1) Congestive heart failure: Code(s): I50.9 - Heart failure, unspecified Status: Acute Assessment and Plan: New onset heart failure. Uncertain if this is diastolic or systolic it to this point. Will increase carvedilol to 6.25 mg p.o. b.i.d... Continue ARB for now. Likely need ischemic workup at some point. This will likely be performed as an outpatient depending on the results of the above tests and response to treatment. Basic metabolic panel today. Will reduce his furosemide to 40 mg IV q.12 (2) Atrial fibrillation: Code(s): I48.91 - Unspecified atrial fibrillation Status: Acute Assessment and Plan: Continue heparin drip for now and will transition to direct oral anticoagulant at some point before discharge. Will hold off at this point in case invasive workup will need to be performed (3) Hypertension associated with diabetes: Code(s): E11.59 - Type 2 diabetes mellitus with other circulatory complications; I15.2 - Hypertension secondary to endocrine disorders Status: Acute Assessment and Plan: Continue carvedilol (4) Acute on chronic kidney failure: Code(s): N17.9 - Acute kidney failure, unspecified; N18.9 - Chronic kidney disease, unspecified Status: Acute Assessment and Plan: Will consult Dr. Crouch (5) Hyperlipidemia associated with type 2 diabetes mellitus: Code(s): E11.69 - Type 2 diabetes mellitus with other specified complication; E78.5 - Hyperlipidemia, unspecified Status: Acute Assessment and Plan: Continue atorvastatin to 20 mg daily (6) Elevated troponin: Code(s): R77.8 - Other specified abnormalities of plasma proteins Status: Acute Assessment and Plan: This is likely secondary to heart failure and renal failure rather than acute plaque rupture Subjective Date/time seen: 10/10/20 11:04 Interval history: 80-year-old admitted for heart failure/volume overload. Date of service 10/10/2020: He is diuresing copiously. He feels about the same. Shortness of breath is okay. No chest pain. Swelling is better but still quite swollen Review of Systems Review of Systems: All systems reviewed & are unremarkable except as noted in HPI and below Constitutional: Constitutional: Denies excessive sweating, Denies fatigue, Denies headache(s) and Reports weakness Eyes: Eyes: Denies blurry vision ENT: Reports Normal hearing present, Denies headache(s), Denies lip swelling and Denies neck pain Cardiovascular: Cardiovascular: Denies chest pain, Reports dyspnea and Reports dyspnea on exertion Respiratory: Respiratory: Reports dyspnea and Reports dyspnea on exertion Gastrointestinal: Gastrointestinal: Denies abdominal pain Genitourinary: Genitourinary: Denies dysuria Musculoskeletal: Musculoskeletal: Denies neck pain and Denies numbness Integumentary/Breasts: Skin/Breast: Denies dry skin and Denies unusual bruising Neurologic: Reports Normal hearing present, Denies confusion, Denies headache(s), Denies numbness and Reports weakness Psychiatric: Psychiatric: Denies anxiety and Denies confusion Endocrine: Endocrine: Denies excessive sweating and Denies fatigue Hematologic/Lymphatic: Hematologic/Lymphatic: Denies easy bleeding and Denies easy bruising Allergic/Immunologic: Allergic/Immunologic: Denies GI upset with certain foods and Denies lip swelling Exam Narrative: Exam Narrative: Alert and oriented appears to be in no acute distress. Appears stated age Const: General: no acute distress; No confusion Orientation/consciousness: No confusion HENMT: General nose exam: Normal nares present Eyes: Sclera: sclerae normal Neck: Neck: supple and no JVD Chest: Other: No reproducible chest wall pain to palpation Resp: Auscultation: diminished lung sounds Cardio: Rate: regular rate Rhythm: abnormal rhythm irregularly irregular Skin: General skin
--- NOTE | 2020-10-10 11:16 | PM.PNNEP ---
Progress Note: A&P Assessment and Plan (1) LINDSEY (acute kidney injury): Code(s): N17.9 - Acute kidney failure, unspecified Status: Acute Assessment and Plan: baseline creatinine ~ 1.0 - 1.3mg/dl (as of June 2020) however, has risk factors for CKD (HTN, DM, vascular disease, age) acute medical issues could be responsible for higher creatinine now but cannot discount possible kidney disease progression renal ultrasound without obstruction urine lytes suggest prerenal azotemia (despite evidence of volume overload -- possible depressed EF(?); follow-up on Echo) follow trend of renal function with ongoing diuresis (2) Congestive heart failure: Code(s): I50.9 - Heart failure, unspecified Status: Acute Assessment and Plan: new diagnosis -- systolic versus diastolic versus both? follow-up on Echo Cardiology following (3) Atrial fibrillation: Code(s): I48.91 - Unspecified atrial fibrillation Status: Acute Assessment and Plan: rate control strategy anticoaguation (4) Hypertension: Code(s): I10 - Essential (primary) hypertension Status: Chronic Assessment and Plan: reasonable control follow trend of hemodynamics (5) Diabetes: Code(s): E11.9 - Type 2 diabetes mellitus without complications Status: Chronic Assessment and Plan: follow accuchecks glycemic control Will continue to follow. Subjective Date/time seen: 10/10/20 11:16 Reasonable diuresis in the last 24 - 48 hours; shortness of breath seems better but still has alot of lower extremity swelling/edema; no acute distress voiced at this time; no other events/issues overnight or earlier this AM. Exam Narrative: Exam Narrative: General: WD/WN male in NAD Heart: normal S1 and S2; no rub Lungs: decreased at bases Abdomen: soft, nontender, nondistended, positive bowel sounds Extremities: no cyanosis or clubbing; 2+ edema Skin: warm and dry Objective Data Vital Signs Vital Signs: Vital Signs Temp Pulse Resp BP Pulse Ox 10/10/20 10:00 80 10/10/20 08:57 99 10/10/20 08:00 36.3 C L 70 16 137/77 98 10/10/20 06:00 68 10/10/20 04:00 36.4 C 75 18 133/90 96 10/10/20 02:00 78 10/10/20 00:00 36.4 C 78 20 128/83 96 10/09/20 23:12 94 10/09/20 22:00 104 H 10/09/20 21:15 110 H 10/09/20 20:00 77 97 10/09/20 19:35 36.0 C L 79 18 145/80 H 100 10/09/20 18:00 77 10/09/20 16:00 36.1 C L 73 22 H 132/84 95 10/09/20 14:00 78 10/09/20 12:00 36.3 C L 78 20 129/77 95 Intake/Output Intake/Output: Intake & Output 10/07/20 10/08/20 10/09/20 10/10/20 23:59 23:59 23:59 23:59 Intake Total 2160 1900 730 Output Total 800 4400 3095 Balance 8506 -3249 -1804 Meds/Results Medications: Active Medications Generic Name Dose Route Start Last Admin Trade Name Freq PRN Reason Stop Dose Admin Acetaminophen 650 mg 10/08/20 04:24 Acetaminophen 325 Mg Tablet PO Q4H PRN Mild Pain (1-3) or Fever Hydrocodone Bitart/Acetaminophen 1 tab 10/08/20 04:24 10/08/20 14:11 Hydrocodone/Acetaminophen (*Crx) 5-325 Mg Tablet PO 1 tab Q4H PRN Administration Pain Rated 4-6 Albuterol 2 puff 10/08/20 12:19 Albuterol Sulfate (*Sp) Aerosol 1 Puff INHALATION Q6HRT PRN Shortness Of Breath Atorvastatin Calcium 20 mg 10/10/20 09:00 10/10/20 08:20 Atorvastatin 20 Mg Tablet PO 20 mg DAILY CESAR Administration Carvedilol 6.25 mg 10/10/20 21:00 Carvedilol 6.25 Mg Tablet PO Q12HR CESAR Dextrose 12.5 gm 10/08/20 12:34 Dextrose 50% 25 Gm/50 Ml Syringe IV PUSH PRN PRN Hypoglycemia Protocol Furosemide 40 mg 10/10/20 17:00 Furosemide Inj 100 Mg/10 Ml Vial IV PUSH BID CESAR Glucagon 1 mg 10/08/20 12:34 Glucagon For Inj 1 Mg Vial IM PRN PRN Hypoglycemia Protocol Glucose 15 gm
--- NOTE | 2020-10-10 11:37 | PCPTNOTE ---
Attempted therapy session, Pt in procedure will attempt again.
[2020-10-10 11:48] LABS: Anion Gap 7 mmol/L (8-16); Blood Urea Nitrogen 55 mg/dL (9-20); Calcium 8.6 mg/dL (8.4-10.2); Carbon Dioxide 33 mmol/L (22-30); Chloride 100 mmol/L (98-107); Estimated CRCL calculation 45 ml/min; Estimated Glomerular Filt Rate 55; Glucose 188 mg/dL (75-110); Potassium 3.1 mmol/L (3.4-5.0); Sodium 140 mmol/L (137-145)
--- NOTE | 2020-10-10 11:50 | PCOTNOTE ---
Patient unable to be seen at this time. Patient having an ECHO performed at this time. Will try back this afternoon.
--- NOTE | 2020-10-10 13:38 | PM.IMPN ---
Progress Note: A&P Assessment and Plan (1) Diabetes: Code(s): E11.9 - Type 2 diabetes mellitus without complications Status: Chronic Assessment and Plan: KEISHA Boland (2) Hypertension: Code(s): I10 - Essential (primary) hypertension Status: Chronic Assessment and Plan: Continue to monitor BP, seen by cardiology (3) Elevated troponin: Code(s): R77.8 - Other specified abnormalities of plasma proteins Status: Acute Assessment and Plan: secondary to CHf (4) Hyperlipidemia associated with type 2 diabetes mellitus: Code(s): E11.69 - Type 2 diabetes mellitus with other specified complication; E78.5 - Hyperlipidemia, unspecified Status: Chronic (5) Acute on chronic kidney failure: Code(s): N17.9 - Acute kidney failure, unspecified; N18.9 - Chronic kidney disease, unspecified Status: Chronic Assessment and Plan: continue to monitor, seen by nephrology (6) Atrial fibrillation: Code(s): I48.91 - Unspecified atrial fibrillation Status: Acute Assessment and Plan: pt is on heparin drip and calcium channel cynthia (7) Pneumonia: Code(s): J18.9 - Pneumonia, unspecified organism Status: Acute Assessment and Plan: pt is on iv rocephin and zithromax pt is negative for the covid pt to have a walk study for oxygen pt is wearing BIPAP prn (8) Congestive heart failure: Code(s): I50.9 - Heart failure, unspecified Status: Acute Assessment and Plan: pt is on ivlasix Subjective Date/time seen: 10/10/20 13:38 Interval history: 80 year old male who presents ER with shortness of breath which has started since past few days and bilateral leg swelling. Pt feels better since admission, face and legs and abdomen still swollen. continue iv diuresis, pt desaturates on walking home oxygen test ordered. Covid ruled out pt here for community acquired pneumonia and chf exacerbation Review of Systems Review of Systems: All systems reviewed & are unremarkable except as noted in HPI and below Exam Const: General: cooperative and tired appearing Nutritional Appearance: overweight Orientation/consciousness: oriented to person HENMT: Head: normal to inspection Resp: Effort & Inspection: decreased respiratory effort and other (Bilateral crackles ) Cardio: Rate: regular rate Rhythm: regular rhythm GI: Inspection: normal to inspection GI Palp: No abdominal tenderness, No Guarding due to palpation present (GI) and No Hepatomegaly present Auscultation: normal bowel sounds Neuro: General: oriented to person Objective Data Vital Signs Vital Signs: Vital Signs - 24 hr 10/09/20 14:00 10/09/20 16:00 10/09/20 18:00 Temperature 36.1 C L Pulse Rate 78 73 77 Respiratory Rate 22 H Blood Pressure 132/84 Pulse Oximetry 95 10/09/20 19:35 10/09/20 20:00 10/09/20 21:15 Temperature 36.0 C L Pulse Rate 79 77 110 H Respiratory Rate 18 Blood Pressure 145/80 H Pulse Oximetry 100 97 10/09/20 22:00 10/09/20 23:12 10/10/20 00:00 Temperature 36.4 C Pulse Rate 104 H 78 Respiratory Rate 20 Blood Pressure 128/83 Pulse Oximetry 94 96 10/10/20 02:00 10/10/20 04:00 10/10/20 06:00 Temperature 36.4 C Pulse Rate 78 75 68 Respiratory Rate 18 Blood Pressure 133/90 Pulse Oximetry 96 10/10/20 08:00 10/10/20 08:57 10/10/20 10:00 Temperature 36.3 C L Pulse Rate 70 80 Respiratory Rate 16 Blood Pressure 137/77 Pulse Oximetry 98 99 10/10/20 12:00 Temperature 36.4 C Pulse Rate 78 Respiratory Rate 20 Blood Pressure 134/83 Pulse Oximetry 96 Intake/Output Intake/Output: Intake & Output 10/07/20 10/08/20 10/09/20 10/10/20 23:59 23:59 23:59 23:59 Intake Total 2160 1900 970 Output Total 800 4400 3495 Balance 9783 -6211 -9730 Meds/Results Medications: Active Medications Generic Name Dose Route Start Last Admin Trade Name Freq
[2020-10-10 15:57] LABS: Glucose Point of Care 212 (65-105)
[2020-10-10] MEDS: INSULIN ASPART (*BKC) 100 UNITS/ML SUB-Q (16:23)
[2020-10-10] MEDS: FUROSEMIDE INJ 40 MG/4 ML VIAL IV PUSH (16:23)
[2020-10-10 16:59] LABS: Partial Thromboplastin Time 102.6 SECONDS (22.3-36.8)
[2020-10-10] MEDS: POTASSIUM CHLORIDE 20 MEQ PACKET (FOR LIQUID) 40 MEQ PO (18:23)
[2020-10-10 20:21] LABS: Glucose Point of Care 150 (65-105)
[2020-10-10] MEDS: carvediloL 6.25 MG TABLET PO (20:43)
[2020-10-10] MEDS: HYDROcodone/acetaminophen (*CRX) 5-325 MG TABLET 1 TAB PO (20:53)
[2020-10-10 23:28] LABS: Partial Thromboplastin Time 141.1 SECONDS (22.3-36.8)
[2020-10-11] VITALS (17 sets, daily range): BP systolic 125–154; BP diastolic 73–91; PULSE 67–88; RESP 18–21; TEMP 35.7–36.7; O2SAT 93–98
[2020-10-11] MEDS: HEPARIN SOD/D5W 100 UNITS/ML 25,000 UNITS/250 ML BAG 17 UNITS IV CONT ×2 (01:07→04:44)
[2020-10-11 05:37] LABS: Legionella pneumophila Ag Ur Not Detected (Not Detected)
[2020-10-11 07:01] LABS: Basophils Percent Auto 0.5 % (0.2-1.2); Eosinophils Absolute Auto 0.1 K/mm3 (0-0.3); Eosinophils Percent Auto 1.5 % (0-4.4); Hematocrit 30.9 % (42.0-52.0); Hemoglobin 9.9 g/dL (14.0-18.0); Immature Granulocyte Absolute 0.03 K/mm3 (0.00-0.031); Immature Granulocyte Percent A 0.4 % (0-0.5); Lymphocytes Absolute Auto 1.34 K/mm3 (0.9-3.2); Lymphocytes Percent Auto 18.4 % (18.3-44.2); Mean Corpuscular Hemoglobin 28.1 pg (26-34); Mean Corpuscular Volume 87.8 fl (80-100); Mean Platelet Volume 11.1 fl (7.4-10.4); Monocytes Absolute Auto 0.9 K/mm3 (0.1-0.6); Monocytes Percent Auto 11.8 % (2.6-8.5); Neutrophils Absolute Auto 4.9 K/mm3 (1.3-6.7); Neutrophils Percent Auto 67.4 % (45.5-73.1); Platelet Count Result 204 k/mm3 (150-375); Red Blood Count 3.52 M/mm3 (4.6-6.20); Red Cell Distribution Width 16.6 % (11.5-14.5); White Blood Count 7.3 K/mm3 (4.5-10.0)
[2020-10-11 07:12] LABS: Anion Gap 5 mmol/L (8-16); Blood Urea Nitrogen 50 mg/dL (9-20); Carbon Dioxide 33 mmol/L (22-30); Chloride 101 mmol/L (98-107); Estimated CRCL calculation 40 ml/min; Estimated Glomerular Filt Rate 47; Glucose 299 mg/dL (75-110); Partial Thromboplastin Time 71.5 SECONDS (22.3-36.8); Potassium 3.3 mmol/L (3.4-5.0); Sodium 139 mmol/L (137-145)
[2020-10-11] MEDS: INSULIN ASPART (*BKC) 100 UNITS/ML SUB-Q ×2 (07:45→17:22)
[2020-10-11] MEDS: carvediloL 6.25 MG TABLET PO ×2 (07:52→20:40)
[2020-10-11] MEDS: ATORVASTATIN 20 MG TABLET PO (07:52)
[2020-10-11] MEDS: FUROSEMIDE INJ 40 MG/4 ML VIAL IV PUSH ×2 (07:58→17:22)
[2020-10-11] MEDS: POTASSIUM CHLORIDE 20 MEQ PACKET (FOR LIQUID) 40 MEQ PO ×2 (07:59→12:58)
[2020-10-11 09:41] LABS: Glucose Point of Care 357 (65-105)
--- NOTE | 2020-10-11 11:18 | PM.PNCARD ---
Progress Note: A&P Assessment and Plan (1) Congestive heart failure: Code(s): I50.9 - Heart failure, unspecified Status: Acute Assessment and Plan: New onset heart failure. Uncertain if this is diastolic or systolic it to this point. Continue carvedilol to 6.25 mg p.o. b.i.d... Continue ARB for now. Likely need ischemic workup at some point. This will likely be performed as an outpatient depending on the results of the above tests and response to treatment. Will continue his furosemide to 40 mg IV q.12. Replace potassium with 40 mEq of potassium chloride p.o. x1 (2) Atrial fibrillation: Code(s): I48.91 - Unspecified atrial fibrillation Status: Acute Assessment and Plan: DC heparin drip. Start him on Xarelto 15 mg daily (3) Hypertension associated with diabetes: Code(s): E11.59 - Type 2 diabetes mellitus with other circulatory complications; I15.2 - Hypertension secondary to endocrine disorders Status: Acute Assessment and Plan: Continue carvedilol (4) Acute on chronic kidney failure: Code(s): N17.9 - Acute kidney failure, unspecified; N18.9 - Chronic kidney disease, unspecified Status: Chronic Assessment and Plan: Will consult Dr. Crouch (5) Hyperlipidemia associated with type 2 diabetes mellitus: Code(s): E11.69 - Type 2 diabetes mellitus with other specified complication; E78.5 - Hyperlipidemia, unspecified Status: Chronic Assessment and Plan: Continue atorvastatin to 20 mg daily (6) Elevated troponin: Code(s): R77.8 - Other specified abnormalities of plasma proteins Status: Acute Assessment and Plan: This is likely secondary to heart failure and renal failure rather than acute plaque rupture Subjective Date/time seen: 10/11/20 11:18 Interval history: 80-year-old admitted for heart failure/volume overload. Date of service 10/11/2020: He continues to diurese. He feels about the same. Shortness of breath is okay. No chest pain. Swelling is better Review of Systems Review of Systems: All systems reviewed & are unremarkable except as noted in HPI and below Constitutional: Constitutional: Denies excessive sweating, Denies fatigue, Denies headache(s) and Reports weakness Eyes: Eyes: Denies blurry vision ENT: Reports Normal hearing present, Denies headache(s), Denies lip swelling and Denies neck pain Cardiovascular: Cardiovascular: Denies chest pain, Reports dyspnea and Reports dyspnea on exertion Respiratory: Respiratory: Reports dyspnea and Reports dyspnea on exertion Gastrointestinal: Gastrointestinal: Denies abdominal pain Genitourinary: Genitourinary: Denies dysuria Musculoskeletal: Musculoskeletal: Denies neck pain and Denies numbness Integumentary/Breasts: Skin/Breast: Denies dry skin and Denies unusual bruising Neurologic: Reports Normal hearing present, Denies confusion, Denies headache(s), Denies numbness and Reports weakness Psychiatric: Psychiatric: Denies anxiety and Denies confusion Endocrine: Endocrine: Denies excessive sweating and Denies fatigue Hematologic/Lymphatic: Hematologic/Lymphatic: Denies easy bleeding and Denies easy bruising Allergic/Immunologic: Allergic/Immunologic: Denies GI upset with certain foods and Denies lip swelling Exam Narrative: Exam Narrative: Alert and oriented appears to be in no acute distress. Appears stated age Const: General: no acute distress; No confusion Orientation/consciousness: No confusion HENMT: General nose exam: Normal nares present Eyes: Sclera: sclerae normal Neck: Neck: supple and no JVD Chest: Other: No reproducible chest wall pain to palpation Resp: Auscultation: diminished lung sounds Cardio: Rate: regular rate Rhythm: abnormal rhythm irregularly irregular Skin: General skin exam: normal color Neuro: General: No confusion Cranial nerves: Yes Normal hearing present Cognition (Neuro): normal cognition
[2020-10-11 12:27] LABS: Glucose Point of Care 122 (65-105)
--- NOTE | 2020-10-11 13:22 | PM.IMPN ---
Progress Note: A&P Assessment and Plan (1) Diabetes: Code(s): E11.9 - Type 2 diabetes mellitus without complications Status: Chronic Assessment and Plan: KEISHA Boland (2) Hypertension: Code(s): I10 - Essential (primary) hypertension Status: Chronic Assessment and Plan: Continue to monitor BP, seen by cardiology (3) Elevated troponin: Code(s): R77.8 - Other specified abnormalities of plasma proteins Status: Acute Assessment and Plan: secondary to CHf, cxr ordered (4) Hyperlipidemia associated with type 2 diabetes mellitus: Code(s): E11.69 - Type 2 diabetes mellitus with other specified complication; E78.5 - Hyperlipidemia, unspecified Status: Chronic (5) Acute on chronic kidney failure: Code(s): N17.9 - Acute kidney failure, unspecified; N18.9 - Chronic kidney disease, unspecified Status: Chronic Assessment and Plan: continue to monitor, seen by nephrology (6) Atrial fibrillation: Code(s): I48.91 - Unspecified atrial fibrillation Status: Acute Assessment and Plan: pt is on heparin drip and calcium channel cynthia (7) Pneumonia: Code(s): J18.9 - Pneumonia, unspecified organism Status: Acute Assessment and Plan: pt is on iv rocephin and zithromax pt is negative for the covid pt is off oxygen not needing bipap presently (8) Congestive heart failure: Code(s): I50.9 - Heart failure, unspecified Status: Acute Assessment and Plan: pt is on iv lasix, cxr orderd for amara am Subjective Date/time seen: 10/11/20 13:22 Interval history: 80 year old male who presents ER with shortness of breath which has started since past few days and bilateral leg swelling. Pt feels better since admission, face and legs and abdomen still swollen. continue iv diuresis, pt is off oxygen, doing well, still having swollen feet, Covid ruled out. pt here for community acquired pneumonia and chf exacerbation, cxr ordered for amara Am Review of Systems Review of Systems: All systems reviewed & are unremarkable except as noted in HPI and below Exam Const: General: cooperative and tired appearing Nutritional Appearance: overweight Orientation/consciousness: oriented to person HENMT: Head: normal to inspection Resp: Effort & Inspection: decreased respiratory effort and other (Bilateral crackles ) Auscultation: no rhonchi and no wheezes Cardio: Rate: regular rate Rhythm: regular rhythm GI: Inspection: normal to inspection Auscultation: normal bowel sounds Neuro: General: oriented to person Extrem: General: other (swollen face, bilateral swollen feet and ankles 2+) Objective Data Vital Signs Vital Signs: Vital Signs - 24 hr 10/10/20 14:00 10/10/20 16:00 10/10/20 18:00 Temperature 36.3 C L Pulse Rate 75 67 72 Respiratory Rate 18 Blood Pressure 150/79 H Pulse Oximetry 98 10/10/20 19:02 10/10/20 20:00 10/10/20 20:43 Temperature 36.6 C Pulse Rate 76 70 75 Respiratory Rate 18 Blood Pressure 120/58 L Pulse Oximetry 95 95 10/10/20 22:00 10/11/20 00:00 10/11/20 02:00 Temperature 36.7 C Pulse Rate 71 79 72 Respiratory Rate 18 Blood Pressure 130/81 Pulse Oximetry 97 10/11/20 03:34 10/11/20 04:00 10/11/20 06:00 Temperature 36.2 C L Pulse Rate 81 72 Respiratory Rate 18 Blood Pressure 154/74 H Pulse Oximetry 94 94 10/11/20 07:52 10/11/20 08:00 10/11/20 08:15 Temperature 36.3 C L Pulse Rate 76 88 78 Respiratory Rate 20 Blood Pressure 132/73 Pulse Oximetry 93 10/11/20 10:00 10/11/20 12:00 Temperature 36.2 C L Pulse Rate 85 67 Respiratory Rate 18 Blood Pressure 144/91 H Pulse Oximetry 98 Intake/Output Intake/Output: Intake & Output 10/08/20 10/09/20 10/10/20 10/11/20 23:59 23:59 23:59 23:59 Intake Total 2160 2200 2860 1380 Output Total 800 4400 4590 120 Balance 1360 -2200 -1730 1260 Meds/Result
[2020-10-11 16:46] LABS: Glucose Point of Care 259 (65-105)
--- NOTE | 2020-10-11 17:00 | PM.PNNEP ---
Progress Note: A&P Assessment and Plan (1) LINDSEY (acute kidney injury): Code(s): N17.9 - Acute kidney failure, unspecified Status: Acute Assessment and Plan: baseline creatinine ~ 1.0 - 1.3mg/dl (as of June 2020) however, has risk factors for CKD (HTN, DM, vascular disease, age) acute medical issues could be responsible for higher creatinine now but cannot discount possible kidney disease progression creatinine better at this time -- possible renal venous hypertension relieved with diuresis?? renal ultrasound without obstruction urine lytes suggest prerenal azotemia (despite evidence of volume overload -- possible depressed EF(?); follow-up on Echo) suspect nephrotic range proteinuria playing a role with edema/swelling (urine testing pending) follow trend of renal function with ongoing diuresis (2) Congestive heart failure: Code(s): I50.9 - Heart failure, unspecified Status: Acute Assessment and Plan: new diagnosis -- systolic versus diastolic versus both? follow-up on Echo suspect possible component of nephrotic syndrome playing a role -- urine testing pending) Cardiology following (3) Atrial fibrillation: Code(s): I48.91 - Unspecified atrial fibrillation Status: Acute Assessment and Plan: rate control strategy anticoaguation (4) Hypertension: Code(s): I10 - Essential (primary) hypertension Status: Chronic Assessment and Plan: BP starting to rise follow trend of hemodynamics may benefit from adding back ARB (but follow trend of creatinine first) (5) Diabetes: Code(s): E11.9 - Type 2 diabetes mellitus without complications Status: Chronic Assessment and Plan: follow accuchecks glycemic control Will continue to follow. Subjective Date/time seen: 10/11/20 17:00 Breathing/respiratory status continue to improve if not back to baseline but lower extremity edema/swelling persists (athough seems to have improved to some degree as well); no apparent distress voiced at the time of my visit; no events/issues overnight or earlier this AM. Exam Narrative: Exam Narrative: General: WD/WN male in NAD Heart: normal S1 and S2; no rub Lungs: decreased at bases Abdomen: soft, nontender, nondistended, positive bowel sounds Extremities: no cyanosis or clubbing; 2+ edema Skin: warm and intact Objective Data Vital Signs Vital Signs: Vital Signs Temp Pulse Resp BP Pulse Ox 10/11/20 16:00 36.3 C L 77 20 150/79 H 98 10/11/20 14:00 80 10/11/20 12:00 36.2 C L 80 18 144/91 H 98 10/11/20 10:00 85 10/11/20 08:15 78 10/11/20 08:00 36.3 C L 88 20 132/73 93 10/11/20 07:52 76 10/11/20 06:00 72 10/11/20 04:00 36.2 C L 81 18 154/74 H 94 10/11/20 03:34 94 10/11/20 02:00 72 10/11/20 00:00 36.7 C 79 18 130/81 97 10/10/20 22:00 71 10/10/20 20:43 75 10/10/20 20:00 70 95 10/10/20 19:02 36.6 C 76 18 120/58 L 95 Intake/Output Intake/Output: Intake & Output 10/08/20 10/09/20 10/10/20 10/11/20 23:59 23:59 23:59 23:59 Intake Total 2160 2200 2860 1980 Output Total 800 4400 4590 1070 Balance 1360 -2200 -1730 910 Meds/Results Medications: Active Medications Generic Name Dose Route Start Last Admin Trade Name Sd PRN Reason Stop Dose Admin Acetaminophen 650 mg 10/08/20 04:24 Acetaminophen 325 Mg Tablet PO Q4H PRN Mild Pain (1-3) or Fever Hydrocodone Bitart/Acetaminophen 1 tab 10/08/20 04:24 10/10/20 20:53 Hydrocodone/Acetaminophen (*Crx) 5-325 Mg Tablet PO 1 tab Q4H PRN Administration Pain Rated 7-10 Albuterol 2 puff 10/08/20 12:19 Albuterol Sulfate (*Sp) Aerosol 1 Puff INHALATION Q6HRT PRN Shortness Of Breath Atorvastatin Calcium 20 mg 10/10/20 09:00 10/11/20 07:52 Atorvastatin 20 Mg Tablet PO 20 mg DAILY CESAR Administration Carvedilol 6.25 mg
[2020-10-11] MEDS: RIVAROXABAN 15 MG TABLET PO (17:22)
[2020-10-11 20:23] LABS: Glucose Point of Care 188 (65-105)
[2020-10-12] VITALS (18 sets, daily range): BP systolic 126–158; BP diastolic 55–94; PULSE 68–88; RESP 16–20; TEMP 36–37.7; O2SAT 92–98
[2020-10-12 02:39] LABS: Creatinine Urine 47.5 mg/dL; Total Protein Urine Random 27 mg/dL; Ur Ttl Prot Creatinine Ratio 0.57 mg/mg (0-0.20)
[2020-10-12 04:36] LABS: Hematocrit 30.9 % (42.0-52.0); Hemoglobin 9.7 g/dL (14.0-18.0); Mean Corpuscular HGB Conc 31.4 g/dl (32-36); Mean Corpuscular Hemoglobin 27.5 pg (26-34); Mean Corpuscular Volume 87.5 fl (80-100); Mean Platelet Volume 10.8 fl (7.4-10.4); Platelet Count Result 196 k/mm3 (150-375); Red Blood Count 3.53 M/mm3 (4.6-6.20); Red Cell Distribution Width 16.6 % (11.5-14.5); White Blood Count 7.4 K/mm3 (4.5-10.0)
[2020-10-12 04:50] LABS: Anion Gap 5 mmol/L (8-16); Blood Urea Nitrogen 44 mg/dL (9-20); Calcium 8.3 mg/dL (8.4-10.2); Carbon Dioxide 33 mmol/L (22-30); Chloride 102 mmol/L (98-107); Estimated CRCL calculation 45 ml/min; Estimated Glomerular Filt Rate 55; Glucose 179 mg/dL (75-110); Potassium 3.2 mmol/L (3.4-5.0); Sodium 140 mmol/L (137-145)
[2020-10-12] MEDS: carvediloL 6.25 MG TABLET PO ×2 (09:21→20:16)
[2020-10-12] MEDS: POTASSIUM CHLORIDE 20 MEQ PACKET (FOR LIQUID) 40 MEQ PO ×2 (09:22→14:26)
[2020-10-12] MEDS: ATORVASTATIN 20 MG TABLET PO (09:22)
[2020-10-12] MEDS: FUROSEMIDE INJ 40 MG/4 ML VIAL IV PUSH ×2 (09:22→17:41)
[2020-10-12 10:07] LABS: Glucose Point of Care 154 (65-105)
[2020-10-12 11:40] LABS: Magnesium 1.4 mg/dL (1.6-2.3)
--- NOTE | 2020-10-12 11:59 | PM.PNCARD ---
Progress Note: A&P Assessment and Plan (1) Congestive heart failure: Code(s): I50.9 - Heart failure, unspecified Status: Acute Assessment and Plan: New onset heart failure. Uncertain if this is diastolic or systolic it to this point. Continue carvedilol to 6.25 mg p.o. b.i.d... Continue ARB for now. Likely need ischemic workup at some point. This will likely be performed as an outpatient depending on the results of the above tests and response to treatment. Will continue his furosemide to 40 mg IV q.12. Extra potassium 40 mEq p.o. x1 (2) Atrial fibrillation: Code(s): I48.91 - Unspecified atrial fibrillation Status: Acute Assessment and Plan: DC heparin drip. Continue Xarelto 15 mg daily (3) Hypertension associated with diabetes: Code(s): E11.59 - Type 2 diabetes mellitus with other circulatory complications; I15.2 - Hypertension secondary to endocrine disorders Status: Acute Assessment and Plan: Continue carvedilol (4) Acute on chronic kidney failure: Code(s): N17.9 - Acute kidney failure, unspecified; N18.9 - Chronic kidney disease, unspecified Status: Chronic Assessment and Plan: Will consult Dr. Crouch (5) Hyperlipidemia associated with type 2 diabetes mellitus: Code(s): E11.69 - Type 2 diabetes mellitus with other specified complication; E78.5 - Hyperlipidemia, unspecified Status: Chronic Assessment and Plan: Continue atorvastatin to 20 mg daily (6) Elevated troponin: Code(s): R77.8 - Other specified abnormalities of plasma proteins Status: Acute Assessment and Plan: This is likely secondary to heart failure and renal failure rather than acute plaque rupture (7) NSVT (nonsustained ventricular tachycardia): Code(s): I47.2 - Ventricular tachycardia Status: Acute Assessment and Plan: Will replace his potassium with an additional 40 mEq p.o. x1. I also his magnesium was checked and it is low. I will give him 4 g of IV magnesium. Outpatient stress test to be performed Subjective Date/time seen: 10/12/20 11:59 Interval history: 80-year-old admitted for heart failure/volume overload. Date of service 10/12/2020: He continues to diurese. Legs are starting to feel better. Shortness of breath has improved.. No chest pain. Swelling is better Review of Systems Review of Systems: All systems reviewed & are unremarkable except as noted in HPI and below Constitutional: Constitutional: Denies excessive sweating, Denies fatigue, Denies headache(s) and Reports weakness Eyes: Eyes: Denies blurry vision ENT: Reports Normal hearing present, Denies headache(s), Denies lip swelling and Denies neck pain Cardiovascular: Cardiovascular: Denies chest pain, Reports dyspnea and Reports dyspnea on exertion Respiratory: Respiratory: Reports dyspnea and Reports dyspnea on exertion Gastrointestinal: Gastrointestinal: Denies abdominal pain Genitourinary: Genitourinary: Denies dysuria Musculoskeletal: Musculoskeletal: Denies neck pain and Denies numbness Integumentary/Breasts: Skin/Breast: Denies dry skin and Denies unusual bruising Neurologic: Reports Normal hearing present, Denies confusion, Denies headache(s), Denies numbness and Reports weakness Psychiatric: Psychiatric: Denies anxiety and Denies confusion Endocrine: Endocrine: Denies excessive sweating and Denies fatigue Hematologic/Lymphatic: Hematologic/Lymphatic: Denies easy bleeding and Denies easy bruising Allergic/Immunologic: Allergic/Immunologic: Denies GI upset with certain foods and Denies lip swelling Exam Narrative: Exam Narrative: Alert and oriented appears to be in no acute distress. Appears stated age Const: General: no acute distress; No confusion Orientation/consciousness: No confusion HENMT: General nose exam: Normal nares present Eyes: Sclera: sclerae normal Neck: Neck: supple and no JVD Chest: Othe
[2020-10-12] MEDS: MAGNESIUM SULF 4 GM/WATER100ML 4 GM/100 ML BAG IVPB (14:00)
[2020-10-12] MEDS: INSULIN ASPART (*BKC) 100 UNITS/ML SUB-Q ×2 (14:01→17:36)
[2020-10-12 14:08] LABS: Glucose Point of Care 218 (65-105)
[2020-10-12 14:22] LABS: Pneumococcal Antigen Urine Not Detected (Not Detected)
--- NOTE | 2020-10-12 15:07 | PCRCNOTE ---
Home o2 eval completed. No home O2 needed at this time. RN notified.
--- NOTE | 2020-10-12 15:08 | P.PNNP_ITS ---
Progress Note: A&P Assessment and Plan (1) LINDSEY (acute kidney injury): Code(s): N17.9 - Acute kidney failure, unspecified Status: Acute Assessment and Plan: * baseline creatinine ~ 1.0 - 1.3mg/dl (as of June 2020) * however, has risk factors for CKD (HTN, DM, vascular disease, age) * acute medical issues could be responsible for higher creatinine now but cannot discount possible kidney disease progression * creatinine better at this time -- possible renal venous hypertension relieved with diuresis?? * renal ultrasound without obstruction * urine lytes suggest prerenal azotemia (despite evidence of volume overload -- possible depressed EF(?); follow-up on Echo) * only 570mg of proteinuria * follow trend of renal function with ongoing diuresis (2) Congestive heart failure: Code(s): I50.9 - Heart failure, unspecified Status: Acute Assessment and Plan: * new diagnosis -- systolic versus diastolic versus both? * follow-up on Echo * Cardiology following (3) Atrial fibrillation: Code(s): I48.91 - Unspecified atrial fibrillation Status: Acute Assessment and Plan: * rate control strategy * anticoaguation (4) Hypertension: Code(s): I10 - Essential (primary) hypertension Status: Chronic Assessment and Plan: * BP starting to rise * follow trend of hemodynamics * may benefit from adding back ARB (but follow trend of creatinine first) (5) Diabetes: Code(s): E11.9 - Type 2 diabetes mellitus without complications Status: Chronic Assessment and Plan: * follow accuchecks * glycemic control Will continue to follow. Subjective Date/time seen: 10/12/20 15:08 Appears to be doing reasonably well -- still with alot of lower extremity swelling/edema but this does appear better as is his respiratory status/ breathing; continues to have good diuresis with use of IV lasix; no apparent distress to report at this time. Exam Narrative: Exam Narrative: General: WD/WN male in NAD Heart: normal S1 and S2; no rub Lungs: decreased at bases Abdomen: soft, nontender, nondistended, positive bowel sounds Extremities: no cyanosis or clubbing; 2+ edema Skin: no rash or nodules Objective Data Vital Signs Vital Signs: Vital Signs Temp Pulse Resp BP Pulse Ox 10/12/20 14:35 94 10/12/20 14:30 94 10/12/20 14:00 78 10/12/20 13:52 85 18 94 10/12/20 12:00 36.8 C 79 18 142/94 H 97 10/12/20 10:00 88 10/12/20 09:21 85 10/12/20 08:00 36.7 C 79 18 154/81 H 94 10/12/20 06:00 76 10/12/20 04:00 36.0 C L 74 18 155/77 H 98 10/12/20 02:00 86 10/12/20 00:00 36.8 C 85 18 158/71 H 94 10/11/20 22:00 74 10/11/20 20:40 75 10/11/20 20:00 72 10/11/20 18:51 35.7 C L 79 21 H 125/76 96 10/11/20 18:00 83 Intake/Output Intake/Output: Intake & Output 10/09/20 10/10/20 10/11/20 10/12/20 23:59 23:59 23:59 23:59 Intake Total 2200 2860 2220 620 Output Total 4400 4590 1570 500 Balance -2200 -1730 650 120 Meds/Results Medications: Active Medications Generic Name Dose Route Start Last Admin Trade Name Freq PRN Reason Stop Dose Admin
--- NOTE | 2020-10-12 15:08 | PM.PNNEP ---
Progress Note: A&P Assessment and Plan (1) LINDSEY (acute kidney injury): Code(s): N17.9 - Acute kidney failure, unspecified Status: Acute Assessment and Plan: baseline creatinine ~ 1.0 - 1.3mg/dl (as of June 2020) however, has risk factors for CKD (HTN, DM, vascular disease, age) acute medical issues could be responsible for higher creatinine now but cannot discount possible kidney disease progression creatinine better at this time -- possible renal venous hypertension relieved with diuresis?? renal ultrasound without obstruction urine lytes suggest prerenal azotemia (despite evidence of volume overload -- possible depressed EF(?); follow-up on Echo) only 570mg of proteinuria follow trend of renal function with ongoing diuresis (2) Congestive heart failure: Code(s): I50.9 - Heart failure, unspecified Status: Acute Assessment and Plan: new diagnosis -- systolic versus diastolic versus both? follow-up on Echo Cardiology following (3) Atrial fibrillation: Code(s): I48.91 - Unspecified atrial fibrillation Status: Acute Assessment and Plan: rate control strategy anticoaguation (4) Hypertension: Code(s): I10 - Essential (primary) hypertension Status: Chronic Assessment and Plan: BP starting to rise follow trend of hemodynamics may benefit from adding back ARB (but follow trend of creatinine first) (5) Diabetes: Code(s): E11.9 - Type 2 diabetes mellitus without complications Status: Chronic Assessment and Plan: follow accuchecks glycemic control Will continue to follow. Subjective Date/time seen: 10/12/20 15:08 Appears to be doing reasonably well -- still with alot of lower extremity swelling/edema but this does appear better as is his respiratory status/breathing; continues to have good diuresis with use of IV lasix; no apparent distress to report at this time. Exam Narrative: Exam Narrative: General: WD/WN male in NAD Heart: normal S1 and S2; no rub Lungs: decreased at bases Abdomen: soft, nontender, nondistended, positive bowel sounds Extremities: no cyanosis or clubbing; 2+ edema Skin: no rash or nodules Objective Data Vital Signs Vital Signs: Vital Signs Temp Pulse Resp BP Pulse Ox 10/12/20 14:35 94 10/12/20 14:30 94 10/12/20 14:00 78 10/12/20 13:52 85 18 94 10/12/20 12:00 36.8 C 79 18 142/94 H 97 10/12/20 10:00 88 10/12/20 09:21 85 10/12/20 08:00 36.7 C 79 18 154/81 H 94 10/12/20 06:00 76 10/12/20 04:00 36.0 C L 74 18 155/77 H 98 10/12/20 02:00 86 10/12/20 00:00 36.8 C 85 18 158/71 H 94 10/11/20 22:00 74 10/11/20 20:40 75 10/11/20 20:00 72 10/11/20 18:51 35.7 C L 79 21 H 125/76 96 10/11/20 18:00 83 Intake/Output Intake/Output: Intake & Output 10/09/20 10/10/20 10/11/20 10/12/20 23:59 23:59 23:59 23:59 Intake Total 2200 2860 2220 620 Output Total 4400 4590 1570 500 Balance -2200 -1730 650 120 Meds/Results Medications: Active Medications Generic Name Dose Route Start Last Admin Trade Name Freq PRN Reason Stop Dose Admin Acetaminophen 650 mg 10/08/20 04:24 Acetaminophen 325 Mg Tablet PO Q4H PRN Mild Pain (1-3) or Fever Hydrocodone Bitart/Acetaminophen 1 tab 10/08/20 04:24 10/10/20 20:53 Hydrocodone/Acetaminophen (*Crx) 5-325 Mg Tablet PO 1 tab Q4H PRN Administration Pain Rated 7-10 Albuterol 2 puff 10/08/20 12:19 Albuterol Sulfate (*Sp) Aerosol 1 Puff INHALATION Q6HRT PRN Shortness Of Breath Atorvastatin Calcium 20 mg 10/10/20 09:00 10/12/20 09:22 Atorvastatin 20 Mg Tablet PO 20 mg DAILY CESAR Administration Carvedilol 6.25 mg 10/10/20 21:00 10/12/20 09:21 Carvedilol 6.25 Mg Tablet PO 6.25 mg Q12HR CESAR Administration Dextrose 12.5 gm 10/08/20 12:34 Dextrose 50% 25 Gm/50 Ml Syringe
--- NOTE | 2020-10-12 16:01 | PM.IMPN ---
Progress Note: A&P Assessment and Plan (1) Diabetes: Code(s): E11.9 - Type 2 diabetes mellitus without complications Status: Chronic Assessment and Plan: KEISHA Boland (2) Hypertension: Code(s): I10 - Essential (primary) hypertension Status: Chronic Assessment and Plan: Continue to monitor BP, seen by cardiology (3) Elevated troponin: Code(s): R77.8 - Other specified abnormalities of plasma proteins Status: Acute Assessment and Plan: secondary to CHf (4) Hyperlipidemia associated with type 2 diabetes mellitus: Code(s): E11.69 - Type 2 diabetes mellitus with other specified complication; E78.5 - Hyperlipidemia, unspecified Status: Chronic (5) Acute on chronic kidney failure: Code(s): N17.9 - Acute kidney failure, unspecified; N18.9 - Chronic kidney disease, unspecified Status: Chronic Assessment and Plan: continue to monitor, seen by nephrology (6) Atrial fibrillation: Code(s): I48.91 - Unspecified atrial fibrillation Status: Acute Assessment and Plan: Pt is on xarelto for anticoagulation and mindy cynthia (7) Pneumonia: Code(s): J18.9 - Pneumonia, unspecified organism Status: Acute Assessment and Plan: pt is on iv rocephin and zithromax pt is negative for the covid (8) Congestive heart failure: Code(s): I50.9 - Heart failure, unspecified Status: Acute Assessment and Plan: pt is on iv lasix, continue to monitor bmp amd mg levels, EF 65% (9) NSVT (nonsustained ventricular tachycardia): Code(s): I47.2 - Ventricular tachycardia Status: Acute Assessment and Plan: Secondary to low magnesium replace and continue to monitor magnesium Subjective Date/time seen: 10/12/20 16:01 Interval history: 80 year old male who presents ER with shortness of breath which has started since past few days and bilateral leg swelling. Pt feels better since admission, face and legs and abdomen still swollen. continue iv diuresis, pt is off oxygen, doing well, still having swollen feet, Covid ruled out. pt here for community acquired pneumonia and chf exacerbation, Cxr reviewed, hopefully home amara Review of Systems Review of Systems: All systems reviewed & are unremarkable except as noted in HPI and below Exam Const: General: cooperative and tired appearing Nutritional Appearance: overweight Orientation/consciousness: oriented to person HENMT: Head: normal to inspection Resp: Effort & Inspection: normal respiratory effort Auscultation: no rhonchi and no wheezes Cardio: Rate: regular rate Rhythm: regular rhythm GI: Inspection: normal to inspection Auscultation: normal bowel sounds Neuro: General: oriented to person Extrem: General: other (swollen face, bilateral swollen feet and ankles 2+) Objective Data Vital Signs Vital Signs: Vital Signs - 24 hr 10/11/20 18:00 10/11/20 18:51 10/11/20 20:00 Temperature 35.7 C L Pulse Rate 83 79 72 Respiratory Rate 21 H Blood Pressure 125/76 Pulse Oximetry 96 10/11/20 20:40 10/11/20 22:00 10/12/20 00:00 Temperature 36.8 C Pulse Rate 75 74 85 Respiratory Rate 18 Blood Pressure 158/71 H Pulse Oximetry 94 10/12/20 02:00 10/12/20 04:00 10/12/20 06:00 Temperature 36.0 C L Pulse Rate 86 74 76 Respiratory Rate 18 Blood Pressure 155/77 H Pulse Oximetry 98 10/12/20 08:00 10/12/20 09:21 10/12/20 10:00 Temperature 36.7 C Pulse Rate 79 85 88 Respiratory Rate 18 Blood Pressure 154/81 H Pulse Oximetry 94 10/12/20 12:00 10/12/20 13:52 10/12/20 14:00 Temperature 36.8 C Pulse Rate 79 85 78 Respiratory Rate 18 18 Blood Pressure 142/94 H Pulse Oximetry 97 94 10/12/20 14:30 10/12/20 14:35 Temperature Pulse Rate Respiratory Rate Blood Pressure Pulse Oximetry 94 94 Intake/Output Intake/Output: Intake & Output 10/09/20 10/10/2010/11
[2020-10-12] MEDS: RIVAROXABAN 15 MG TABLET PO (17:40)
[2020-10-12 18:08] LABS: Glucose Point of Care 237 (65-105)
[2020-10-12 20:12] LABS: Glucose Point of Care 204 (65-105)
[2020-10-12] MEDS: HYDROcodone/acetaminophen (*CRX) 5-325 MG TABLET 1 TAB PO (23:59)
[2020-10-13] VITALS (9 sets, daily range): BP systolic 124–150; BP diastolic 59–77; PULSE 67–88; RESP 12–16; TEMP 36.8–37.2; O2SAT 94–97
[2020-10-13 05:07] LABS: Anion Gap 4 mmol/L (8-16); Blood Urea Nitrogen 37 mg/dL (9-20); Calcium 8.1 mg/dL (8.4-10.2); Carbon Dioxide 33 mmol/L (22-30); Chloride 104 mmol/L (98-107); Estimated CRCL calculation 42 ml/min; Estimated Glomerular Filt Rate 51; Glucose 186 mg/dL (75-110); Magnesium 1.9 mg/dL (1.6-2.3); Potassium 3.7 mmol/L (3.4-5.0); Sodium 141 mmol/L (137-145)
[2020-10-13] MEDS: HYDROcodone/acetaminophen (*CRX) 5-325 MG TABLET 1 TAB PO ×2 (08:29→14:54)
[2020-10-13] MEDS: POTASSIUM CHLORIDE 20 MEQ PACKET (FOR LIQUID) 40 MEQ PO (08:30)
[2020-10-13] MEDS: ATORVASTATIN 20 MG TABLET PO (08:30)
[2020-10-13] MEDS: carvediloL 6.25 MG TABLET PO (08:30)
[2020-10-13] MEDS: FUROSEMIDE INJ 40 MG/4 ML VIAL IV PUSH (08:30)
[2020-10-13 08:33] LABS: Glucose Point of Care 187 (65-105)
--- NOTE | 2020-10-13 10:39 | PM.PNCARD ---
Progress Note: A&P Assessment and Plan (1) Congestive heart failure: Code(s): I50.9 - Heart failure, unspecified Status: Acute Assessment and Plan: New onset heart failure. Uncertain if this is diastolic or systolic it to this point. Continue carvedilol to 6.25 mg p.o. b.i.d... Continue ARB for now. Likely need ischemic workup at some point. This will likely be performed as an outpatient depending on the results of the above tests and response to treatment. DC IV furosemide. Furosemide 40 mg p.o. b.i.d.. KCL 40 mEq p.o. x1. Start losartan 25 mg p.o. daily (2) Atrial fibrillation: Code(s): I48.91 - Unspecified atrial fibrillation Status: Acute Assessment and Plan: DC heparin drip. Continue Xarelto 15 mg daily (3) Hypertension associated with diabetes: Code(s): E11.59 - Type 2 diabetes mellitus with other circulatory complications; I15.2 - Hypertension secondary to endocrine disorders Status: Acute Assessment and Plan: Continue carvedilol (4) Acute on chronic kidney failure: Code(s): N17.9 - Acute kidney failure, unspecified; N18.9 - Chronic kidney disease, unspecified Status: Chronic Assessment and Plan: Will consult Dr. Crouch (5) Hyperlipidemia associated with type 2 diabetes mellitus: Code(s): E11.69 - Type 2 diabetes mellitus with other specified complication; E78.5 - Hyperlipidemia, unspecified Status: Chronic Assessment and Plan: Continue atorvastatin to 20 mg daily (6) Elevated troponin: Code(s): R77.8 - Other specified abnormalities of plasma proteins Status: Acute Assessment and Plan: This is likely secondary to heart failure and renal failure rather than acute plaque rupture (7) NSVT (nonsustained ventricular tachycardia): Code(s): I47.2 - Ventricular tachycardia Status: Acute Assessment and Plan: Outpatient stress test to be performed Subjective Date/time seen: 10/13/20 10:39 Interval history: 80-year-old admitted for heart failure/volume overload. Date of service 10/13/2020: He continues to diurese. Swelling is better. Wants to go. Shortness of breath has improved.. No chest pain. Review of Systems Review of Systems: All systems reviewed & are unremarkable except as noted in HPI and below Constitutional: Constitutional: Denies excessive sweating, Denies fatigue, Denies headache(s) and Reports weakness Eyes: Eyes: Denies blurry vision ENT: Reports Normal hearing present, Denies headache(s), Denies lip swelling and Denies neck pain Cardiovascular: Cardiovascular: Denies chest pain, Reports dyspnea and Reports dyspnea on exertion Respiratory: Respiratory: Reports dyspnea and Reports dyspnea on exertion Gastrointestinal: Gastrointestinal: Denies abdominal pain Genitourinary: Genitourinary: Denies dysuria Musculoskeletal: Musculoskeletal: Denies neck pain and Denies numbness Integumentary/Breasts: Skin/Breast: Denies dry skin and Denies unusual bruising Neurologic: Reports Normal hearing present, Denies confusion, Denies headache(s), Denies numbness and Reports weakness Psychiatric: Psychiatric: Denies anxiety and Denies confusion Endocrine: Endocrine: Denies excessive sweating and Denies fatigue Hematologic/Lymphatic: Hematologic/Lymphatic: Denies easy bleeding and Denies easy bruising Allergic/Immunologic: Allergic/Immunologic: Denies GI upset with certain foods and Denies lip swelling Exam Narrative: Exam Narrative: Alert and oriented appears to be in no acute distress. Appears stated age Const: General: no acute distress; No confusion Orientation/consciousness: No confusion HENMT: General nose exam: Normal nares present Eyes: Sclera: sclerae normal Neck: Neck: supple and no JVD Chest: Other: No reproducible chest wall pain to palpation Resp: Auscultation: diminished lung sounds Cardio: Rate: regular rate Rhythm: abnormal rhyt
[2020-10-13] MEDS: LOSARTAN POTASSIUM 25 MG TABLET PO (11:07)
[2020-10-13] MEDS: POTASSIUM CHLORIDE 20 MEQ TABLET 40 MEQ PO (11:07)
[2020-10-13] MEDS: INSULIN ASPART (*BKC) 100 UNITS/ML SUB-Q (12:24)
[2020-10-13 12:33] LABS: Glucose Point of Care 255 (65-105)
--- NOTE | 2020-10-13 13:29 | PM.PNNEP ---
Progress Note: A&P Assessment and Plan (1) LINDSEY (acute kidney injury): Code(s): N17.9 - Acute kidney failure, unspecified Status: Acute Assessment and Plan: baseline creatinine ~ 1.0 - 1.3mg/dl (as of June 2020) however, has risk factors for CKD (HTN, DM, vascular disease, age) acute medical issues could be responsible for higher creatinine now but cannot discount possible kidney disease progression creatinine better at this time -- possible renal venous hypertension relieved with diuresis?? renal ultrasound without obstruction urine lytes suggest prerenal azotemia (despite evidence of volume overload -- possible depressed EF(?); follow-up on Echo) only 570mg of proteinuria follow trend of renal function with ongoing diuresis (2) Congestive heart failure: Code(s): I50.9 - Heart failure, unspecified Status: Acute Assessment and Plan: new diagnosis -- systolic versus diastolic versus both? follow-up on Echo Cardiology following (3) Atrial fibrillation: Code(s): I48.91 - Unspecified atrial fibrillation Status: Acute Assessment and Plan: rate control strategy anticoaguation (4) Hypertension: Code(s): I10 - Essential (primary) hypertension Status: Chronic Assessment and Plan: BP starting to rise follow trend of hemodynamics may benefit from adding back ARB (but follow trend of creatinine first) (5) Diabetes: Code(s): E11.9 - Type 2 diabetes mellitus without complications Status: Chronic Assessment and Plan: follow accuchecks glycemic control Will continue to follow. Subjective Date/time seen: 10/13/20 13:29 Continues to do well with slow and steady improvement in renal function as well as respiratory status/breathing and swelling/edema; anxious for discharge at this time; switched to oral diuretics today; no other acute issues/events overnight or earlier this AM. Exam Narrative: Exam Narrative: General: WD/WN male in NAD Heart: normal S1 and S2; no rub Lungs: decreased at bases Abdomen: soft, nontender, nondistended, positive bowel sounds Extremities: no cyanosis or clubbing; 1+ edema Skin: warm and dry Objective Data Vital Signs Vital Signs: Vital Signs Temp Pulse Resp BP Pulse Ox 10/13/20 12:00 36.8 C 84 12 124/59 L 97 10/13/20 10:00 87 10/13/20 08:30 80 10/13/20 08:00 37.2 C 88 12 150/77 H 94 10/13/20 06:00 73 10/13/20 04:00 37.0 C 76 16 140/76 96 10/13/20 02:00 67 10/13/20 00:00 85 10/12/20 23:54 37.7 C H 77 18 134/55 L 97 10/12/20 22:00 74 10/12/20 20:16 71 10/12/20 20:00 36.1 C L 69 16 126/66 97 10/12/20 18:00 79 10/12/20 16:00 37.0 C 74 20 130/81 94 10/12/20 14:35 94 10/12/20 14:30 94 10/12/20 14:00 78 10/12/20 13:52 85 18 94 Intake/Output Intake/Output: Intake & Output 10/10/20 10/11/20 10/12/20 10/13/20 23:59 23:59 23:59 23:59 Intake Total 2860 2270 1910 1180 Output Total 4590 1570 2750 1475 Balance -3851 700 -584 -487 Meds/Results Medications: Active Medications Generic Name Dose Route Start Last Admin Trade Name Freq PRN Reason Stop Dose Admin Acetaminophen 650 mg 10/08/20 04:24 Acetaminophen 325 Mg Tablet PO Q4H PRN Mild Pain (1-3) or Fever Hydrocodone Bitart/Acetaminophen 1 tab 10/08/20 04:24 10/13/20 08:29 Hydrocodone/Acetaminophen (*Crx) 5-325 Mg Tablet PO 1 tab Q4H PRN Administration Pain Rated 7-10 Albuterol 2 puff 10/08/20 12:19 Albuterol Sulfate (*Sp) Aerosol 1 Puff INHALATION Q6HRT PRN Shortness Of Breath Atorvastatin Calcium 20 mg 10/10/20 09:00 10/13/20 08:30 Atorvastatin 20 Mg Tablet PO 20 mg DAILY CESAR Administration Carvedilol 6.25 mg 10/10/20 21:00 10/13/20 08:30 Carvedilol 6.25 Mg Tablet PO 6.25 mg Q12HR CESAR Administration Dextrose 12.5 gm 10/08/20 1
--- NOTE | 2020-10-13 13:29 | P.PNNP_ITS ---
Progress Note: A&P Assessment and Plan (1) LINDSEY (acute kidney injury): Code(s): N17.9 - Acute kidney failure, unspecified Status: Acute Assessment and Plan: * baseline creatinine ~ 1.0 - 1.3mg/dl (as of June 2020) * however, has risk factors for CKD (HTN, DM, vascular disease, age) * acute medical issues could be responsible for higher creatinine now but cannot discount possible kidney disease progression * creatinine better at this time -- possible renal venous hypertension relieved with diuresis?? * renal ultrasound without obstruction * urine lytes suggest prerenal azotemia (despite evidence of volume overload -- possible depressed EF(?); follow-up on Echo) * only 570mg of proteinuria * follow trend of renal function with ongoing diuresis (2) Congestive heart failure: Code(s): I50.9 - Heart failure, unspecified Status: Acute Assessment and Plan: * new diagnosis -- systolic versus diastolic versus both? * follow-up on Echo * Cardiology following (3) Atrial fibrillation: Code(s): I48.91 - Unspecified atrial fibrillation Status: Acute Assessment and Plan: * rate control strategy * anticoaguation (4) Hypertension: Code(s): I10 - Essential (primary) hypertension Status: Chronic Assessment and Plan: * BP starting to rise * follow trend of hemodynamics * may benefit from adding back ARB (but follow trend of creatinine first) (5) Diabetes: Code(s): E11.9 - Type 2 diabetes mellitus without complications Status: Chronic Assessment and Plan: * follow accuchecks * glycemic control Will continue to follow. Subjective Date/time seen: 10/13/20 13:29 Continues to do well with slow and steady improvement in renal function as well as respiratory status/breathing and swelling/edema; anxious for discharge at this time; switched to oral diuretics today; no other acute issues/events overnight or earlier this AM. Exam Narrative: Exam Narrative: General: WD/WN male in NAD Heart: normal S1 and S2; no rub Lungs: decreased at bases Abdomen: soft, nontender, nondistended, positive bowel sounds Extremities: no cyanosis or clubbing; 1+ edema Skin: warm and dry Objective Data Vital Signs Vital Signs: Vital Signs Temp Pulse Resp BP Pulse Ox 10/13/20 12:00 36.8 C 84 12 124/59 L 97 10/13/20 10:00 87 10/13/20 08:30 80 10/13/20 08:00 37.2 C 88 12 150/77 H 94 10/13/20 06:00 73 10/13/20 04:00 37.0 C 76 16 140/76 96 10/13/20 02:00 67 10/13/20 00:00 85 10/12/20 23:54 37.7 C H 77 18 134/55 L 97 10/12/20 22:00 74 10/12/20 20:16 71 10/12/20 20:00 36.1 C L 69 16 126/66 97 10/12/20 18:00 79 10/12/20 16:00 37.0 C 74 20 130/81 94 10/12/20 14:35 94 10/12/20 14:30 94 10/12/20 14:00 78 10/12/20 13:52 85 18 94 Intake/Output Intake/Output: Intake & Output 10/10/20 10/11/20 10/12/20 10/13/20 23:59 23:59 23:59 23:59 Intake Total 2860 2270 1910 1180 Output Total 4540 4140 9259 4449 Balance -7207 293 -923 -825 Meds/Results Medications: Active Medications Generic Name Dose Route Start Last Admin Tra
--- NOTE | 2020-10-13 14:46 | PM.DS ---
DS: Admitting Diagnosis Admitting Diagnosis Admitting Diagnosis: Shortness of breath DS: Discharge Diagnosis Discharge Diagnosis (1) Diabetes: Code(s): E11.9 - Type 2 diabetes mellitus without complications Status: Chronic Assessment and Plan: Accu-checks, SSI in hospital, continue home medications. (2) Hypertension: Code(s): I10 - Essential (primary) hypertension Status: Chronic Assessment and Plan: Continue to monitor BP, seen by cardiology (3) Elevated troponin: Code(s): R77.8 - Other specified abnormalities of plasma proteins Status: Acute Assessment and Plan: Secondary to CHF (4) Hyperlipidemia associated with type 2 diabetes mellitus: Code(s): E11.69 - Type 2 diabetes mellitus with other specified complication; E78.5 - Hyperlipidemia, unspecified Status: Chronic (5) Acute on chronic kidney failure: Code(s): N17.9 - Acute kidney failure, unspecified; N18.9 - Chronic kidney disease, unspecified Status: Chronic Assessment and Plan: Continue to monitor, seen by nephrology (6) Atrial fibrillation: Code(s): I48.91 - Unspecified atrial fibrillation Status: Acute Assessment and Plan: Pt is on xarelto for anticoagulation and beta cynthia (7) Pneumonia: Code(s): J18.9 - Pneumonia, unspecified organism Status: Acute Assessment and Plan: Pt is on iv Rocephin and Zithromax for community acquired pneumonia. Pt is negative for the covid (8) Congestive heart failure: Code(s): I50.9 - Heart failure, unspecified Status: Acute Assessment and Plan: Pt is here for acute on chronic systolic chf exacerbation pt is swollen head to toe. Pt is on iv lasix, continue to monitor bmp and mg levels, EF 65%. Swelling has improved. pt only has swelling in his ankles and feet. Cardiology has reviewed medications prior to discharge. (9) NSVT (nonsustained ventricular tachycardia): Code(s): I47.2 - Ventricular tachycardia Status: Acute Assessment and Plan: Secondary to low magnesium replace and continue to monitor magnesium DS: Summary Hospital Course Hospital Course: 80 year old male who presents ER with shortness of breath which has started since past few days and bilateral leg swelling. Pt feels better since admission, face and legs and abdomen still swollen. continue iv diuresis, pt is off oxygen, doing well, still having swollen feet, Covid ruled out. pt here for community acquired pneumonia and chf exacerbation. Pt can be discharged today. Time Spent with Patient Time attestation: Total time spent providing and/or coordinating discharge services:40 minutes on day of discharge Exam Const: General: cooperative, no acute distress, alert, awake, Physically active, tired appearing and other (chronically ill looking.) Nutritional Appearance: overweight Orientation/consciousness: oriented to person and patient oriented x3 Resp: Effort & Inspection: normal respiratory effort and able to speak in complete sentences Auscultation: crackles bilateral, no rhonchi and no wheezes Cardio: Rate: regular rate Rhythm: regular rhythm and other (irregularly irregular) GI: Inspection: normal to inspection Auscultation: normal bowel sounds Skin: Rashes: no rashes Neuro: General: oriented to person, patient oriented x3 and CN's II-XI intact bilaterally Cranial nerves: Yes CN's II-XII intact bilaterally and Yes Equal, round and reactive pupils present Cognition (Neuro): normal cognition Speech: normal speech Gait exam (Neuro): Normal gait present Motor exam (neuro): 5/5 motor strength present throughout Extrem: General: pedal edema bilaterally 2+ DS: Data Data Completed and Pending Labs on day of discharge: Labs from last 24 hours 10/13/20 10/13/20 10/13/20 12:21 07:28 04:38 Sodium 141 Potassium 3.7 Chloride 104 Carbon Dioxide 33 H Anion Gap 4 L BUN
== END 2020-10-13 16:01 | disposition home or self-care (01) | DRG 291 ==
LOC: ANHED 03:13 → ANHIMU 06:25
PROVIDERS: Family Medicine; Internal Medicine Cardiovascular Disease; Internal Medicine Nephrology; Admitting Provider Internal Medicine; Emergency Provider Emergency Medicine; PCP Family Medicine; Visit Provider Internal Medicine
DX: I13.0 Hypertensive heart and chronic kidney disease with heart failure and stage 1 through stage 4 chronic kidney disease, or unspecified chronic kidney disease (principal); J18.9 Pneumonia, unspecified organism; J96.01 Acute respiratory failure with hypoxia; I50.23 Acute on chronic systolic (congestive) heart failure; N17.9 Acute kidney failure, unspecified; I47.2 Ventricular tachycardia; Z20.822 Contact with and (suspected) exposure to COVID-19; E11.22 Type 2 diabetes mellitus with diabetic chronic kidney disease; N18.9 Chronic kidney disease, unspecified; E11.59 Type 2 diabetes mellitus with other circulatory complications; I15.2 Hypertension secondary to endocrine disorders; E11.69 Type 2 diabetes mellitus with other specified complication; E78.2 Mixed hyperlipidemia; I48.91 Unspecified atrial fibrillation; R77.8 Other specified abnormalities of plasma proteins; M54.5 Low back pain; G89.29 Other chronic pain; Z79.899 Other long term (current) drug therapy; Z87.891 Personal history of nicotine dependence
CPT/HCPCS: 36415; 36600; 71045; 71250; 76775; 80048; 81001; 82375; 82570; 82805; 82948; 83036; 83050; 83605; 83735; 83880; 84156; 84300; 84484; 84540; 85025; 85027; 85610; 85730; 85999; 87040; 87449; 87581; 87899; 93005; 93306; 93970; 94002; 94003; 94618; 94660; 96374; 97110; 97116; 97161; 97165; 97530; 97535; 99291; A9270; C9803; J0456; J0696; J1644; J1815; J1940; J3475; U0003; U0005

== ENCOUNTER 2020-10-31 10:12 | Outpatient (CLI) | payer MEDICARE, SELFPAY ==
[2020-10-31 10:41] LABS: Hemoglobin A1C 6.8 % (<5.7)
[2020-10-31 10:43] LABS: Alanine Aminotransferase 13 U/L (4-50); Albumin Level 3.7 g/dL (3.5-5.1); Alkaline Phosphatase 92 U/L (38-126); Anion Gap 6 mmol/L (8-16); Aspartate Amino Transferase 27 U/L (17-59); Bilirubin,Total 0.7 mg/dL (0.2-1.3); Blood Urea Nitrogen 32 mg/dL (9-20); Calcium 8.8 mg/dL (8.4-10.2); Carbon Dioxide 30 mmol/L (22-30); Chloride 106 mmol/L (98-107); Estimated Glomerular Filt Rate 51; Glucose 162 mg/dL (75-110); Potassium 3.8 mmol/L (3.4-5.0); Sodium 142 mmol/L (137-145)
== END 2020-10-31 10:13 | disposition home or self-care (01) ==
PROVIDERS: PCP Family Medicine; Visit Provider Family Medicine
DX: E11.40 Type 2 diabetes mellitus with diabetic neuropathy, unspecified (principal)
CPT/HCPCS: 36415; 80053; 83036

== ENCOUNTER 2021-01-08 12:21 | Inpatient (IN) | payer MEDICARE, SELFPAY ==
[2021-01-08] VITALS (16 sets, daily range): BP systolic 108–135; BP diastolic 55–74; PULSE 79–100; RESP 17–27; TEMP 36.7–37.9; O2SAT 95–100; BMI 34.2
--- NOTE | ~2021-01-08 | CT_ITS ---
EXAMINATION: CT abdomen pelvis wo con EXAM DATE: 01/13/2021 11:02 INDICATION: Body and leg edema. Rule out retroperitoneal process TECHNIQUE: Spiral CT of the abdomen and pelvis was performed without contrast. Axial, coronal and sag ittal images were reviewed. The dose-length product (DLP) for this examination was 1223.13 mGy-cm. The exposure was tailored according to patient size (auto mA exposure control), and iterative reconst ruction (ASIR) was used as additional dose reduction technique. Comparison is made to prior examinati on from 06/24/2011. FINDINGS: Generalized anasarca and mesenteric edema. Large amount of bilateral perinephric fat, and f at stranding within this region as well. Scattered renal lesions most likely cysts and hemorrhagic cy sts, but can't exclude solid mass in this setting. There is no hydronephrosis. The prostate is unrem arkable. The bladder is unremarkable. The liver, spleen, adrenal glands and pancreas are unremarkab le. Gallbladder is unremarkable. No biliary obstruction. There is no retroperitoneal or pelvic lym phadenopathy. Small umbilical fat-containing hernia. The appendix is normal. There is mild scattered colonic diverticulosis. There is no adjacent inflamm atory change to suggest diverticulitis. The stomach and small bowel are unremarkable. There is expec nichol amount of colonic stool. No free intraperitoneal gas. The interventricular septum is percepti ble, suggesting patient is anemic. Dilated pulmonary arteries, probably pulmonary arterial hypertens ion. Mild cardiomegaly. The lung bases are unremarkable. There are no osteoblastic or osteolytic les ions identified. IMPRESSION: 1. Generalized edema throughout subcutaneous and intra-abdominal fat. No retroperitoneal mass. 2. Bilateral renal cysts and hemorrhagic cysts. Can't exclude solid cancer in this setting. 3. Mild cardiomegaly, dilated pulmonary arteries. 4. Colonic diverticulosis. Reviewed, dictated and finalized at location A. IMPRESSION: 1. Generalized edema throughout subcutaneous and intra-abdominal fat. No retro peritoneal mass. 2. Bilateral renal cysts and hemorrhagic cysts. Can't exclude solid cancer in this setting. 3. Mild cardiomegaly, dilated pulmonary arteries. 4. Colonic diverticulosis.
--- NOTE | ~2021-01-08 | XR_ITS ---
XR chest 2V 01/08/2021 13:27 Indication: Bilateral lower extremity edema Procedure: AP and lateral views of the chest Comparison: Comparison to multiple prior studies sequentially, with oldest reviewed study dated 03/29. Findings: There is bilateral airspace disease of the mid and lower lung zones. Cardiomegaly. No signi ficant pleural effusion or pneumothorax. No acute osseous abnormality. There is a spinal stimulator l ead overlying the mid thoracic spine. Impression: 1: Bilateral airspace disease of the mid and lower lung zones which may represent edema, pneumonia an d/or atelectasis. Reviewed, dictated and finalized at location B. Impression: 1: Bilateral airspace disease of the mid and lower lung zones which may represe nt edema, pneumonia and/or atelectasis.
--- NOTE | ~2021-01-08 | US_ITS ---
EXAMINATION: US venous doppler [facility] DATE: 01/08/2021 14:49 INDICATION: Lower limb edema. TECHNIQUE: Grayscale ultrasound images without and with compression and Doppler ultrasound images of the bilateral lower extremity veins were obtained. COMPARISON: Ultrasound 10/08/2020 FINDINGS: The visualized portions of right common femoral vein, profunda (deep) femoral vein, femoral vein, pop liteal vein, peroneal veins, posterior tibial veins, and greater saphenous vein outflow are patent. The visualized portions of left common femoral vein, profunda femoral vein, femoral vein, popliteal v ein, peroneal veins, posterior tibial veins, and greater saphenous vein outflow are patent. IMPRESSION: 1. No deep venous thrombosis. Reviewed, dictated and finalized at location A.
--- NOTE | ~2021-01-08 | US_ITS ---
EXAMINATION: US renal BI DATE: 01/10/2021 16:05 INDICATION: Acute on chronic kidney disease. TECHNIQUE: Multiple ultrasound grayscale images of the kidneys were obtained. COMPARISON: 10/08/2020 FINDINGS: The right kidney measures 9.1 x 6.0 x 5.8 cm. The left kidney measures 9.7 x 6.1 x 6.8 cm. The kidney s demonstrate normal echogenicity. There are multiple bilateral anechoic simple appearing renal cysts measuring 3.8 cm and 1.1 cm maximal diameter at the lower pole of the right kidney and 2.0 cm, 2.5 c m and 2.3 cm in maximal diameters at the upper, mid and lower left kidney respectively. There is a 1. 4 cm isoechoic exophytic lesion at the upper pole of the right kidney without definite posterior acou stic enhancement and cannot exclude a solid neoplasm. There is no hydronephrosis in either kidney. N o stones identified. The bladder is nearly completely decompressed which limits evaluation. IMPRESSION: 1. Indeterminate 1.4 cm isoechoic exophytic lesion at the upper pole the right kidney which raises c oncern for renal cell carcinoma. Recommend further evaluation with pre and postcontrast MRI or CT. 2. A few bilateral renal cysts. No hydronephrosis. Reviewed, dictated and finalized at location A. IMPRESSION: 1. Indeterminate 1.4 cm isoechoic exophytic lesion at the upper pole the right kidney which raises concern for renal cell carcinoma. Recommend further evalua tion with pre and postcontrast MRI or CT. 2. A few bilateral renal cysts. No hydronephrosis.
--- NOTE | ~2021-01-08 | US_ITS ---
EXAMINATION: US biopsy renal DATE: 01/15/2021 13:28 INDICATION: Acute on chronic kidney disease with elevated creatinine and paraproteinemia TECHNIQUE: The procedure including the risks, benefits, and alternatives was discussed with the patie nt. Risks discussed included bleeding and infection. The patient understood the risks and agreed to p roceed. A timeout was performed to verify the patient's name, date of , and procedure to be p erformed. The skin overlying the left kidney was prepped and draped in usual sterile fashion. Anest hetic was administered with 1% lidocaine subcutaneously. An 18 gauge core biopsy needle was then use d to obtain 3 core biopsy specimens under continuous sonographic guidance. The entry site was cleaned and dressed. There were no immediate complications. FINDINGS: Ultrasound images demonstrate the needle in the lateral lower pole of the left kidney. Inci dentally noted is a 3.1 x 2.6 cm complex thick-walled cystic mass at the left renal hilum with isoech oic wall measuring up to 6 mm in thickness. IMPRESSION: 1. Ultrasound-guided random left kidney core needle biopsy. 2. 3.1 cm thick-walled cystic mass at the left renal hilum, Bosniak 3 which could be considered a bhavana gical lesion. Recommend urologic consultation. Dr. Gómez discussed these findings with Dr. Crouch at 2:00 PM. Reviewed, dictated and finalized at location A. IMPRESSION: 1. Ultrasound-guided random left kidney core needle biopsy. 2. 3.1 cm thick-walled cystic mass at the left renal hilum, Bosniak 3 which cou ld be considered a surgical lesion. Recommend urologic consultation. Dr. Wheeler rt discussed these findings with Dr. Crouch at 2:00 PM.
--- NOTE | 2021-01-08 12:41 | ECG_ITS ---
Measurements Intervals [place] Rate: 84 P: 81 NH: 346 QRS: -12 QRSD: 98 T: 51 QT: 368 QTc: 437 Interpretive Statements ATRIAL FIBRILLATION CANNOT RULE OUT SEPTAL INFARCT, AGE INDETERMINATE BORDERLINE ST-T WAVE ABNORMALITY- DIFFUSE LEADS BASELINE ARTIFACT- I, II, III, AVR, AVL, AVF, V1-V6 ABNORMAL ECG Electronically Signed On 01-08-2021 12:50:54 CDT by Neo Nieto D.O.
--- NOTE | 2021-01-08 13:55 | PC.NURSE ---
Dr Sanford at bedside for assessment. Phlebotomy called to assist with blood draw, unable to obtain after multiple times
--- NOTE | 2021-01-08 14:11 | ED.WEAKNESS ---
HPI - Weakness General Chief complaint: Weakness Stated complaint: weakness Time Seen by Provider: 01/08/21 13:53 Source: patient and family Mode of arrival: wheelchair Limitations: no limitations History of Present Illness HPI Narrative: Patient is a 80-year-old male with a history of atrial fibrillation, hypertension, hyperlipidemia, diabetes, congestive heart failure, estimated ejection fraction 65%, who presents for evaluation of generalized weakness, borderline fever, and increased swelling to his legs. Patient states he has dealt with swelling over the past 3 months since an admission in October for acute CHF exacerbation. Patient states edema has been present for the past several days, no associated redness, no significant calf pain. Patient has been compliant with his Xarelto. He denies any chest pain, shortness of breath, abdominal pain or palpitations. No history of Covid. He received full series of Covid vaccination. He reports mild cough. No hemoptysis. Patient states he has been compliant with his medications. Related Data Home Medications Medication Instructions Recorded Confirmed Victoza 2-Vidal 1.2 mg SUBCUT DAILY 10/08/20 10/25/20 pioglitazone 45 mg PO DAILY 10/08/20 10/25/20 Allergies Allergy/AdvReac Type Severity Reaction Status Date / Time No Known Allergies Verified 01/08/21 12:37 Review of Systems Review of Systems: Narrative: CONSTITUTIONAL: Denies fever, chills, or sweats. EYES: Denies visual changes, redness, or discharge. ENT: Denies rhinorrhea, congestion, sore throat, or otalgia. CARDIOVASCULAR: Denies chest pain, palpitations, reports bilateral lower extremity edema RESPIRATORY: Reports cough without shortness of breath GASTROINTESTINAL: Denies abdominal pain, nausea, vomiting, or diarrhea. GENITOURINARY: Denies dysuria or hematuria. SKIN: Denies rash or itching. MUSCULOSKELETAL: Denies back pain, joint pain, or myalgia. NEUROLOGIC: Denies headache, numbness, reports non focal weakness, reports feeling fatigued PMFSH Past Medical History Medical History Atrial fibrillation Diabetes mellitus with proteinuria Essential (primary) hypertension Hyperlipidemia associated with type 2 diabetes mellitus Hypertension associated with diabetes Mixed hyperlipidemia Surgical History Surgical History Status post bilateral knee replacements Family History Family History Father Cerebrovascular accident Mother Hypertension Sibling Hypertension Social History Social History Smoking packs per day: 0.5 Smoking cigarettes per day: 10.0 Years smoked: 3 Smoking pack-years: 1.50 Smoking status: Former smoker Tobacco type: cigarettes Second hand tobacco smoke exposure: No Smoking end date: 08/04/65 Alcohol intake: never Substance use: never Substance use type: does not use Gender identity (if verbalized by the patient): Male Spiritual care concerns: No Exam Narrative: Exam Narrative: GENERAL: Awake, alert, conversant HEAD: Normocephalic, atraumatic. EYES: PERRLA and EOMI. ENT: Nares clear, no rhinorrhea or epistaxis. Mucous membranes moist. NECK: Supple. CHEST: No respiratory distress, breathing even and non labored HEART: Regular rate, sinus rhythm ABDOMEN:Non distended, non tender EXTREMITIES: Normal range of motion. Bilateral pitting edema to the knees, 3+. No calf pain. No erythema. SKIN: Pale, dry, no rash. NEURO:No focal deficits. Alert and oriented x3 Course Vital Signs Vital signs: Vital Signs Temperature 37.9 C H 01/08/21 12:25 Pulse Rate 88 01/08/21 12:25 Respiratory Rate 22 H 01/08/21 12:25 Blood Pressure 113/65 01/08/21 12:25 Pulse Oximetry 95 01/08/21 12:25 Temperature 36.8 C 01/08/21 15:02 Pulse Ra
[2021-01-08 14:20] LABS: Basophils Percent Auto 0.3 % (0.2-1.2); Hematocrit 25.1 % (42.0-52.0); Hemoglobin 7.8 g/dL (14.0-18.0); Immature Granulocyte Absolute 0.05 K/mm3 (0.00-0.031); Immature Granulocyte Percent A 0.4 % (0-0.5); Lymphocytes Absolute Auto 1.28 K/mm3 (0.9-3.2); Lymphocytes Percent Auto 11.4 % (18.3-44.2); Mean Corpuscular HGB Conc 31.1 g/dl (32-36); Mean Corpuscular Hemoglobin 25.9 pg (26-34); Mean Corpuscular Volume 83.4 fl (80-100); Mean Platelet Volume 10.5 fl (7.4-10.4); Monocytes Absolute Auto 1.1 K/mm3 (0.1-0.6); Monocytes Percent Auto 10.2 % (2.6-8.5); Neutrophils Absolute Auto 8.7 K/mm3 (1.3-6.7); Neutrophils Percent Auto 77.7 % (45.5-73.1); Platelet Count Result 217 k/mm3 (150-375); Red Blood Count 3.01 M/mm3 (4.6-6.20); White Blood Count 11.2 K/mm3 (4.5-10.0)
[2021-01-08 14:30] LABS: INR 1.7; Prothrombin Time 20.3 Seconds (11.1-14.7)
[2021-01-08 14:31] LABS: Anion Gap 12 mmol/L (8-16); Blood Urea Nitrogen 57 mg/dL (9-20); Calcium 8.8 mg/dL (8.4-10.2); Carbon Dioxide 26 mmol/L (22-30); Chloride 103 mmol/L (98-107); Estimated CRCL calculation 26 ml/min; Estimated Glomerular Filt Rate 29; Glucose 196 mg/dL (75-110); Partial Thromboplastin Time 40.6 SECONDS (22.3-36.8); Potassium 3.8 mmol/L (3.4-5.0); Sodium 141 mmol/L (137-145)
[2021-01-08 14:46] LABS: NT Pro B Type Natriuretic Pept 11500 pg/mL (5-100); Troponin I 0.058 ng/mL (0.000-0.034)
--- NOTE | 2021-01-08 15:00 | PC.NURSE ---
Dr. Sanford at bedside, updated pt and on POC, plan for admission. Pt reports hx anemia and needing blood transfusions, +pale, denies SOB, 98% RA.
[2021-01-08] MEDS: ACETAMINOPHEN 500 MG TABLET 1000 MG PO (15:03)
[2021-01-08] MEDS: SODIUM CHLORIDE 0.9% IV 500 ML 999 ML IV CONT (15:03)
[2021-01-08 15:52] LABS: Lactic Acid Reflex 1.4 mmol/L (0.7-2.1)
[2021-01-08 15:56] LABS: CRP 24.2 mg/dL (<1.0)
--- NOTE | 2021-01-08 17:40 | PC.NURSE ---
Pt assisted to bedpan, unable to have BM, pt cleaned and repositioned on cart HOB elevated. Per blood bank pt has antibodies and will need additional labs sent for testing
[2021-01-08 18:43] LABS: Immature Reticulocyte Fraction 13.4 % (3.0-15.9); Reticulocyte Hemoglobin Conten 22.7 pg (28.2-35.7); Reticulocyte Percent 1.37 % (0.7-4.3); Reticulocytes Absolute 0.04 B/L (32.2-175.7)
[2021-01-08 18:52] LABS: Lactate Dehydrogenase 365 U/L (313-618)
[2021-01-08 19:00] LABS: Transferrin 127 mg/dL (206-381)
[2021-01-08 19:07] LABS: Add Urine Microscopic? YES; Appearance Urine Clear (Clear); Bacteria Urine Trace /hpf; Bilirubin Urine Negative (Negative); Blood Urine 2+ (Negative); Color Urine Yellow (Yellow); Glucose Urine UA Negative (Negative); Ketones Urine Negative (Negative); Leukocyte Esterase Ur Negative LEU/UL (Negative); Nitrate Urine Negative (Negative); Protein Urine 2+ mg/dL (Negative); Specific Grav Ur 1.015 (1.001-1.035); Squamous Epithelial Cell Urine Rare /hpf (Few); Urobilinogen Urine Negative mg/dL (<2.0)
[2021-01-08 19:11] LABS: Troponin I 0.058 ng/mL (0.000-0.034)
[2021-01-08 19:15] LABS: Iron 20 ug/dL (49-181)
[2021-01-08 19:25] LABS: Percent Iron Saturation 10 % (20-50)
[2021-01-08] MEDS: CEFEPIME 1 GM in DEXTROSE 5% IN WATER 50 ML IVPB (19:31)
[2021-01-08 20:01] LABS: Folic Acid 7.5 ng/mL (2.76->20)
--- NOTE | 2021-01-08 22:19 | ADMGEN ---
This patient, Khalif Yanez, was admitted to IMU 210 at 2200. Patient/family oriented to hospital policies and general routines including ID bracelet, bed and alarms, visiting hours, pain management, procedures, bathroom and other care routines, personal items, smoking policy, room service/diet, and visiting hours. Information on how to activate the Rapid Response Team has been discussed. Patient/Family are encouraged to report perceived risks to care and to ask questions if they do not understand what they are told or what they should do.
--- NOTE | 2021-01-08 23:47 | PM.IMHP ---
H&P: HPI History of Present Illness Date/Time: 01/08/21 23:47 Chief Complaint: Weakness, leg swelling and fever Narrative: 80-year-old male with past medical history of diabetes, hypertension, hyperlipidemia, CHF, chronic kidney disease, and atrial fibrillation on Xarelto who presented to the ER with 1 day of weakness, low-grade fever and increasing leg swelling. He has had worsening swelling in his legs over the last several days. He reports that his legs of become so big that they feel weak. He has not been able to stand up on his own for the last 2 days. He is not able to pick his legs up off the bed. He reports sensation in his legs is normal. He has not noticed any erythema, rashes or calf pain. He has been compliant with his Xarelto and has not missed any doses. He has not had any cough or congestion. He does not have history of COVID and has received both COVID vaccines. He has noticed a mild cough and had a temperature of a 100.3? on arrival to the ER. He denies any recent ill contacts. He denies any significant sputum production, nasal congestion, sore throat, nausea, vomiting, dysuria, change in urinary frequency or hematuria. He had to normally formed bowel movements since admission to the hospital. He reports that he does not typically eat red meat. He does not eat a lot of iron rich foods. He tries to eat a low-sodium diet. He reports that his weight has been stable since he was last discharge from the hospital. He reported that the last time he was in the hospital he lost 15 lb in water weight. Review of Systems Review of Systems: Narrative: 12 systems were reviewed with pertinent positives and negatives per HPI. Except as documented in the HPI, all other systems were reviewed and are negative. [facility] Past Medical History Medical History (Updated 01/09/21 @ 03:16 by Esthela Rodriguez DO) Atrial fibrillation B12 deficiency anemia BPH (benign prostatic hyperplasia) Chronic anticoagulation Congestive heart failure Echocardiogram October 2020: Indeterminate diastolic function, EF 65-70%, mild right ventricular enlargement, mildly increased left ventricular wall thickness, mild left atrial enlargement, mild mitral valve regurgitation, mild tricuspid valve regurgitation, moderate pulmonary hypertension with RVSP 59, 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 Essential (primary) hypertension Hyperlipidemia associated with type 2 diabetes mellitus Hypertension associated with diabetes Iron deficiency anemia Mixed hyperlipidemia Umbilical hernia Surgical History Surgical History (Updated 01/09/21 @ 03:11 by Esthela Rodriguez DO) Normal colonoscopy (~2007) Status post bilateral knee replacements Status post cataract extraction of both eyes with insertion of intraocular lens Family History Family History Father Cerebrovascular accident Mother Hypertension Sibling Hypertension Kidney disease, chronic, end stage on dialysis Social History Social History (Updated 01/09/21 @ 03:10 by Esthela Rodriguez DO) Social History: He lives in [place] with his of 57 years. 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 They have 1 daughter and 1 son who are healthy. Smoking packs per day: 0.5 Smoking cigarettes per day: 10.0 Years smoked: 3 Smoking pack-years: 1.50 Smoking status: Former smoker Tobacco type: cigarettes Second hand tobacco smoke exposure: No Smoking end date: 08/04/65 Alcohol intake: never Substance use: never Substance use type: does not use Gender identity (if verbalized by the patient): Male Spiritual care concerns: Yes ([facility]) Meds Home Medications and Allergies Home Medications Medication Instructions Recorded Confirmed Type blood pressure monitor #1 each 01/10/20 10/25/20 Rx blood sugar diagnostic #100 each 01/10/20 10/25/20 Rx blood-glucose meter
[2021-01-09] VITALS (16 sets, daily range): BP systolic 105–144; BP diastolic 66–96; PULSE 79–105; RESP 12–20; TEMP 36.6–37.6; O2SAT 94–100; BMI 34.2
[2021-01-09 00:26] LABS: Troponin I 0.055 ng/mL (0.000-0.034)
[2021-01-09 04:33] LABS: Influenza Control Positive
[2021-01-09 04:51] LABS: Hematocrit 24.2 % (42.0-52.0); Hemoglobin 7.6 g/dL (14.0-18.0); Mean Corpuscular HGB Conc 31.4 g/dl (32-36); Mean Corpuscular Hemoglobin 26.1 pg (26-34); Mean Corpuscular Volume 83.2 fl (80-100); Mean Platelet Volume 10.2 fl (7.4-10.4); Platelet Count Result 216 k/mm3 (150-375); Red Blood Count 2.91 M/mm3 (4.6-6.20); White Blood Count 9.2 K/mm3 (4.5-10.0)
[2021-01-09 05:11] LABS: Anion Gap 10 mmol/L (8-16); Blood Urea Nitrogen 64 mg/dL (9-20); Calcium 8.1 mg/dL (8.4-10.2); Carbon Dioxide 25 mmol/L (22-30); Chloride 103 mmol/L (98-107); Estimated CRCL calculation 27 ml/min; Estimated Glomerular Filt Rate 30; Glucose 219 mg/dL (75-110); Potassium 3.5 mmol/L (3.4-5.0); Sodium 138 mmol/L (137-145)
[2021-01-09] MEDS: CYANOCOBALAMIN 1,000 MCG TABLET 1000 MCG PO (08:53)
[2021-01-09] MEDS: carvediloL 6.25 MG TABLET PO ×2 (08:53→21:32)
[2021-01-09] MEDS: amLODIPine BESYLATE 5 MG TABLET PO (08:53)
[2021-01-09] MEDS: FERROUS SULFATE 324 MG TABLET PO ×2 (08:53→17:22)
[2021-01-09] MEDS: FUROSEMIDE INJ 40 MG/4 ML VIAL IV PUSH ×2 (08:53→17:22)
[2021-01-09] MEDS: ATORVASTATIN 10 MG TABLET PO (08:53)
--- NOTE | 2021-01-09 10:03 | PM.CNCAR ---
Assessment and Plan Assessment and plan (1) Congestive heart failure: Code(s): I50.9 - Heart failure, unspecified Status: Acute Assessment and Plan: Patient presents with worsening lower extremity edema and discomfort, fever but without orthopnea or PND. I do not feel patient is in significant decompensated heart failure, BNP is lower than previous hospitalization October 2020. He is in acute renal failure with low-grade fever at presentation and initial concern for pneumonia for which intravenous antibiotics have been started. May continue Lasix for the time being, however, monitor renal function very closely. I am concerned he may develop worsening renal failure secondary to intravascular volume depletion. Check labs in a.m.. No need to repeat echocardiogram at this time. Will need to monitor patient's response to therapy for closely. Discussed in detail plan of care, concerns and risks. All questions answered to his satisfaction. Further recommendation to follow based on patient's clinical status. (2) Elevated troponin: Code(s): R77.8 - Other specified abnormalities of plasma proteins Status: Acute Assessment and Plan: Flat, chronic, without associated ischemic changes on EKG, ischemic symptoms secondary to chronic renal failure consistent with a type 2 infarct not acute coronary syndrome. Negative stress test earlier this year as an outpatient in our office. no plans or indication for invasive ischemic assessment at this time. (3) LINDSEY (acute kidney injury): Code(s): N17.9 - Acute kidney failure, unspecified Status: Acute Assessment and Plan: Acute on chronic renal failure. Avoid nephrotoxic agents. Hold losartan. Caution with diuretics. Change in right upper oxygen may be warranted if renal function deteriorates further. (4) Anemia of chronic disease: Code(s): D63.8 - Anemia in other chronic diseases classified elsewhere Status: Acute Assessment and Plan: multifactorial, acute on chronic. No clear clinical evidence for active bleed. May continue anticoagulation as appropriate with close observation of H&H. Guaiac negative. (5) Atrial fibrillation: Code(s): I48.91 - Unspecified atrial fibrillation Status: Acute Assessment and Plan: Persistent, rate controlled, asymptomatic. May continue carvedilol and Xarelto. Telemetry for now. (6) Hypertension associated with diabetes: Code(s): E11.59 - Type 2 diabetes mellitus with other circulatory complications; I15.2 - Hypertension secondary to endocrine disorders Status: Acute Assessment and Plan: BP reasonably controlled on present regimen. (7) Pulmonary hypertension: Code(s): I27.20 - Pulmonary hypertension, unspecified Status: Acute Assessment and Plan: Moderate in severity RVSP 59 mm Hg. Patient claims apnea link performed previously do not see documented. He denies prior known history of KEV. per review records patient was previously utilizing BiPAP 17/03 in October. I would not be surprised if patient has significant KEV complicating management. History of Present Illness History of Present Illness Consult date/time: Date of service: 01/09/21 10:03 This is a cardiology consultation at the request of Dr. Rodriguez for opinion regarding CHF Requesting physician: Esthela Rodriguez, Consult reason: atrial fibrillation, congestive heart failure and Other (elevated troponin) Reason For Visit: Symptomatic Anemia, CHF Narrative: Patient is a 80-year-old male with past medical history significant for atrial fibrillation on Xarelto, chronic heart failure with preserved ejection fraction, moderate pulmonary hypertension, chronic kidney disease, hypertension, diabetes mellitus, dyslipidemia who presented to the emergency room with complaints of at least 1 week progressive lower extremity edema and leg pain along with weakness. Patient denies
--- NOTE | 2021-01-09 11:38 | PCNSR ---
On 01/09/21, the student, Ciara Molina, provided care and completed [facility] documentation on this patient. I have reviewed the student's documentation and agree with the findings.
[2021-01-09] MEDS: CYANOCOBALAMIN INJ 1,000 MCG/ML VIAL 1000 MCG IM (13:26)
--- NOTE | 2021-01-09 15:35 | PCPTNOTE ---
Attempted PT eval. pt refused due to L leg pain. Repositioned L leg in bed and pt moaning 05/13 pain. Will try again tomorrow.
[2021-01-09 15:52] LABS: Hematocrit 25.4 % (42.0-52.0); Hemoglobin 7.9 g/dL (14.0-18.0)
--- NOTE | 2021-01-09 16:16 | PM.IMPN ---
Progress Note: A&P Assessment and Plan (1) Congestive heart failure: Code(s): I50.9 - Heart failure, unspecified Status: Acute Assessment and Plan: Patient had echocardiogram October 2020 which showed an indeterminate diastolic function, with the patient increased leg swelling it is most likely acute diastolic CHF exacerbation at this time. Patient was started on IV Lasix 40 mg b.i.d. Cardiology was consulted for further recommendations and adjustments. At this time we are monitoring his renal function since he also has LINDSEY and tried to prevent any worsening renal failure with diuresis. Patient is asymptomatic with his respiratory symptoms, no orthopnea. Continue monitoring intake and output. Appreciate cardiology's input Continue monitoring patient's symptoms. (2) Acute on chronic kidney failure: Code(s): N17.9 - Acute kidney failure, unspecified; N18.9 - Chronic kidney disease, unspecified Status: Chronic Assessment and Plan: Patient has acute on chronic renal insufficiency. Likely due to a combination of ARB and diuretic therapy. Will hold Arb and continue diuretic therapy. Creatinine stable today at 2.5. Continue diuresis and monitoring renal function, urine output Will repeat BMP in a.m.. (3) Fever: Qualifiers: Fever type: unspecified Qualified Code(s): R50.9 - Fever, unspecified Code(s): R50.9 - Fever, unspecified Status: Acute Assessment and Plan: The patient did have a low-grade fever and elevated CRP in the ER with abnormal chest x-ray. Concerning for possible pneumonia. the patient has already received both COVID vaccines but COVID PCR is pending the patient is on isolation. He has been started on empiric antibiotic therapy for Hospital Acquired PNA since he was here within the last 3 months, IV Cefepime and IV Vancomycin. Influenza swab negative . Blood cultures are pending. Urine Antigens pending Will repeat CBC a.m.. Continue antibiotics at this time (4) Symptomatic anemia: Code(s): D64.9 - Anemia, unspecified Status: Acute Assessment and Plan: Regarding the patient's symptomatic anemia he has anemia of chronic disease, iron deficiency anemia and B12 deficiency. The patient's stools were negative for occult blood in the ER. His iron deficiency is likely due to nutritional deficiency decreased iron intake. However, he is on chronic anticoagulation with Xarelto and could certainly have some occult blood loss long-term with no acute occult blood loss. Gastroenterology was consulted from the ER. Oral iron supplementation BID has been ordered (to decrease the amount of fluid he receives due to pitting edema). IM B12 supplementation for 3 days, then switch to PO 1000 mcg daily have been ordered. 1 unit of packed red blood cells was ordered in the ER, but with his stable H&H, and to try and reduce the amount of fluid he receives, will hold on giving him 1 Unit and continue to trend his H&H. Continue monitoring H&H. Transfusion PRN if hemoglobin is less than 7. No acute signs of bleeding at this time. (5) Elevated troponin: Code(s): R77.8 - Other specified abnormalities of plasma proteins Status: Acute Assessment and Plan: Most likely due to fluid overload. Cardiology was consulted who feels at this time that his troponins were flat, chronic without any ischemic changes on EKG which is consistent with a Type 2 [place], not acute coronary syndome. Patient had a negative stress test earlier this year as outpatient No plans or indication for invasive ischemic assessment at this time. Continue monitoring. (6) Iron deficiency anemia: Qualifiers: Iron deficiency anemia type: unspecified iron deficiency Qualified Code(s): D50.9 - Iron deficiency anemia, unspecified Code(s): D50.9 - Iron deficiency anemia, unspecified Status: Acute Assessment and Plan:
--- NOTE | 2021-01-09 16:41 | WPDGICN ---
Assessment and Plan Assessment and plan (1) Symptomatic anemia: Code(s): D64.9 - Anemia, unspecified Status: Acute Assessment and Plan: he has known chronic anemia but lower than usual this time however occult blood stool by ER was negative had similar evaluation by GI 2013 with negative colonoscopy at this point he prefers to hold off on scopes unless obvious signs of bleeding which is not the case (2) Acute on chronic kidney failure: Code(s): N17.9 - Acute kidney failure, unspecified; N18.9 - Chronic kidney disease, unspecified Status: Chronic Assessment and Plan: by primary team, probably also contributing to symptoms and anemia (3) Congestive heart failure: Code(s): I50.9 - Heart failure, unspecified Status: Acute Assessment and Plan: on diuretics by cardiology (4) Pneumonia: Code(s): J18.9 - Pneumonia, unspecified organism Status: Acute Assessment and Plan: on iv antibiotics (5) Atrial fibrillation: Code(s): I48.91 - Unspecified atrial fibrillation Status: Acute Assessment and Plan: on xarelto GI Consult Note Consult date/time: 01/09/21 16:41 Reason for consult: acute on chronic anemia HPI: Khalif Yanez is a 80 year old male past medical history of diabetes, hypertension, hyperlipidemia, CHF, chronic kidney disease, and atrial fibrillation on Xarelto and also chronic anemia for years (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 He came this time with generalized weakness, low grade fever and increasing leg swelling over last several days. He denies any overt GIB, in fact had normal stools. He was found to have low hb again 7.6 (it has been mid 9-10 in the past), also mild cough, elevated CRP in the ER with abnormal chest x-ray concerning for possible pneumonia (reviewed), started on antibiotics and also cardiology consult. Occult blood in stool was negative. He already got COVID vaccine but he is on isolation awaiting for PCR Review of Systems Constitutional: Constitutional: Reports lethargy Eyes: Eyes: Denies blurry vision ENT: Reports Normal hearing present Cardiovascular: Cardiovascular: Reports leg edema Respiratory: Respiratory: Reports cough Gastrointestinal: Gastrointestinal: Denies abdominal pain Genitourinary: Genitourinary: Denies dysuria Musculoskeletal: Musculoskeletal: Denies neck pain Integumentary/Breasts: Skin/Breast: Denies dry skin Neurologic: Denies headache(s) Psychiatric: Psychiatric: Denies behavioral changes [facility] Past Medical History Medical History Atrial fibrillation B12 deficiency anemia BPH (benign prostatic hyperplasia) Chronic anticoagulation Congestive heart failure Echocardiogram October 2020: Indeterminate diastolic function, EF 65-70%, mild right ventricular enlargement, mildly increased left ventricular wall thickness, mild left atrial enlargement, mild mitral valve regurgitation, mild tricuspid valve regurgitation, moderate pulmonary hypertension with RVSP 59, 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 Essential (primary) hypertension Hyperlipidemia associated with type 2 diabetes mellitus Hypertension associated with diabetes Iron deficiency anemia Mixed hyperlipidemia Umbilical hernia Surgical History Surgical History Normal colonoscopy (~2007) Status post bilateral knee replacements Status post cataract extraction of both eyes with insertion of intraocular lens Family History Family History Father Cerebrovascular accident Mother Hypertension Sibling Hypertension Kidney disease, chronic, end stage on dialysis S
[2021-01-09 16:51] LABS: Potassium 3.5 mmol/L (3.4-5.0)
[2021-01-09 16:55] LABS: Magnesium 1.2 mg/dL (1.6-2.3)
[2021-01-09] MEDS: MAGNESIUM SULF 2 GM/WATER 50ML 2 GM/50 ML BAG IVPB (17:22)
[2021-01-09] MEDS: RIVAROXABAN 15 MG TABLET PO (17:22)
[2021-01-09] MEDS: CEFEPIME 0.5 GM in DEXTROSE 5% IN WATER 50 ML IVPB (18:16)
[2021-01-09 23:04] LABS: Hematocrit 25.1 % (42.0-52.0); Hemoglobin 7.8 g/dL (14.0-18.0)
[2021-01-09 23:31] LABS: SARS-CoV-2 RNA PCR Negative
[2021-01-10] VITALS (19 sets, daily range): BP systolic 101–125; BP diastolic 55–78; PULSE 74–105; RESP 18–20; TEMP 36–37.2; O2SAT 95–98
[2021-01-10 05:06] LABS: Basophils Percent Auto 0.2 % (0.2-1.2); Eosinophils Percent Auto 0.5 % (0-4.4); Hematocrit 23.5 % (42.0-52.0); Hemoglobin 7.2 g/dL (14.0-18.0); Immature Granulocyte Absolute 0.05 K/mm3 (0.00-0.031); Immature Granulocyte Percent A 0.6 % (0-0.5); Lymphocytes Absolute Auto 1.32 K/mm3 (0.9-3.2); Mean Corpuscular HGB Conc 30.6 g/dl (32-36); Mean Corpuscular Volume 84.8 fl (80-100); Mean Platelet Volume 11.1 fl (7.4-10.4); Monocytes Absolute Auto 0.6 K/mm3 (0.1-0.6); Neutrophils Absolute Auto 6.2 K/mm3 (1.3-6.7); Neutrophils Percent Auto 75.7 % (45.5-73.1); Platelet Count Result 222 k/mm3 (150-375); Red Blood Count 2.77 M/mm3 (4.6-6.20); Red Cell Distribution Width 17.8 % (11.5-14.5); White Blood Count 8.2 K/mm3 (4.5-10.0)
[2021-01-10 05:20] LABS: Albumin Level 2.7 g/dL (3.5-5.1); Anion Gap 10 mmol/L (8-16); Blood Urea Nitrogen 64 mg/dL (9-20); Carbon Dioxide 26 mmol/L (22-30); Chloride 101 mmol/L (98-107); Estimated CRCL calculation 27 ml/min; Estimated Glomerular Filt Rate 30; Glucose 255 mg/dL (75-110); Magnesium 1.6 mg/dL (1.6-2.3); Phosphorus 3.2 mg/dL (2.5-4.5); Potassium 3.3 mmol/L (3.4-5.0); Sodium 137 mmol/L (137-145)
[2021-01-10] MEDS: FERROUS SULFATE 324 MG TABLET PO ×2 (08:18→17:20)
[2021-01-10] MEDS: ATORVASTATIN 10 MG TABLET PO (08:19)
[2021-01-10] MEDS: carvediloL 6.25 MG TABLET PO (08:20)
[2021-01-10] MEDS: amLODIPine BESYLATE 5 MG TABLET PO (08:20)
[2021-01-10] MEDS: CYANOCOBALAMIN INJ 1,000 MCG/ML VIAL 1000 MCG IM (08:21)
[2021-01-10] MEDS: FUROSEMIDE INJ 40 MG/4 ML VIAL IV PUSH ×2 (09:16→17:20)
[2021-01-10] MEDS: POTASSIUM CHLORIDE 20 MEQ TABLET 40 MEQ PO (10:38)
[2021-01-10] MEDS: MAGNESIUM SULFATE 3GM/D5W100ML 3 GM/100 ML BAG IVPB (10:38)
--- NOTE | 2021-01-10 10:48 | PM.PNCARD ---
Progress Note: A&P Additional Plan Given the edema I believe I would recommend discontinuing amlodipine and advancing the dosage of his carvedilol. IV furosemide will continue for least another day. Patient states that when he lived in [place] he had an extensive anemia workup including a bone marrow aspiration however that was a number of years ago. I am not sure there has been a more recent hematology consult, if not at might be informative/helpful Jameel Gutierrez MD [facility] Subjective Date/time seen: 01/10/21 10:48 Interval history: Follow-up visit in this 80-year-old man with chronic atrial fibrillation admitted to the hospital for worsening lower extremity edema. He is known to have normal left ventricular systolic function. In addition to the a edema he is more significantly anemic. Etiology of his anemia is not clear based on review of his chart. He has had recent endoscopic evaluation and there was no evidence of GI bleeding. He is Hemoccult negative. Patient has report improvement in edema with intravenous furosemide. No other cardiac complaints. He remains anticoagulated with Xarelto. Exam Narrative: Exam Narrative: General: Pleasant elderly gentleman no apparent distress lying comfortable supine in bed speaking full sentences, Well developed, alert and oriented x3. pleasant, and cooperative. Head: atraumatic, normocephalic Eyes: EOM intact, sclerae anicteric, conjunctivae unremarkable Ears/Nose: external inspection of ears and nose were grossly normal Mouth/Throat: oral mucosa pink and moist Neck: supple, normal range of motion, no jugular venous distention or carotid bruits, thyroid nonpalpable, trachea midline. Cardiac: Irregularly irregular rate and rhythm, normal S1-S2, no murmurs, clicks, gallops, or rubs. Lungs: Diminished breath sounds diffusely otherwise clear to auscultation bilaterally, no rales, wheezes, or rhonchi. Abdomen: obese,Soft, nontender, nondistended, positive bowel sounds throughout. No appreciable hepatosplenomegaly, no rebound guarding or rigidity noted. Abdominal aorta nonpalpable, no appreciable bruits. Extremities: 2+ bilateral equal pitting lower extremity edema extending up to the thighs, no clubbing or cyanosis. Extremities warm and well perfused. Skin: Warm and dry without ecchymoses, rashes, and/or petechiae. Musculoskeletal: Muscle strength and tone intact throughout without obvious deformities. Vascular: Carotid upstrokes 2+ bilaterally, radial pulses 2+ bilaterally, dorsalis pedis pulses 2+ bilaterally, posterior tibialis pulses palpable bilaterally. Neurologic: Cranial nerves 2-12 grossly intact, examination grossly nonfocal Pscyhiatric: Mood calm and appropriate. Const: General: No confusion Orientation/consciousness: No confusion Neuro: General: No confusion Speech: No Abnormal speech present Objective Data Vital Signs Vital Signs: Vital Signs - 24 hr 01/09/21 12:00 01/09/21 14:00 01/09/21 16:00 Temperature 36.6 C 36.7 C Pulse Rate 94 89 90 Respiratory Rate 12 12 Blood Pressure 107/66 144/96 H Pulse Oximetry 100 96 01/09/21 18:00 01/09/21 20:00 01/09/21 21:32 Temperature 37.6 C Pulse Rate 94 90 94 Respiratory Rate 20 Blood Pressure 118/74 Pulse Oximetry 95 01/09/21 22:00 01/09/21 23:30 01/10/21 00:00 Temperature 37.2 C Pulse Rate 94 91 Respiratory Rate 20 Blood Pressure 117/78 Pulse Oximetry 96 98 01/10/21 02:00 01/10/21 04:00 01/10/21 06:00 Temperature 37.2 C Pulse Rate 88 84 82 Respiratory Rate 20 Blood Pressure 116/69 Pulse Oximetry 98 01/10/21 08:00 01/10/21 08:20 01/10/21 08:25 Temperature 36.0 C L Pulse Rate 88 93 105 H Respiratory Rate 19 Blood Pressure 108/55 L Pulse Oximetry 97 01/10/21 10:00 Temperature Pulse Rate 79 Respiratory Rate Blood Pressure Pulse Oximetry Intake/Output Intake/Output: Intake & Output
[2021-01-10] MEDS: INSULIN ASPART (*BKC) 100 UNITS/ML SUB-Q ×2 (12:11→17:20)
[2021-01-10 12:20] LABS: Glucose Point of Care 354 mg/dl (65-105)
[2021-01-10 13:40] LABS: Hematocrit 22.9 % (42.0-52.0); Hemoglobin 7.1 g/dL (14.0-18.0)
[2021-01-10 13:43] LABS: Potassium 3.7 mmol/L (3.4-5.0)
--- NOTE | 2021-01-10 14:44 | PM.IMPN ---
Progress Note: A&P Assessment and Plan (1) Congestive heart failure: Code(s): I50.9 - Heart failure, unspecified Status: Acute Assessment and Plan: Patient had echocardiogram October 2020 which showed an indeterminate diastolic function, with the patient increased leg swelling it is most likely acute diastolic CHF exacerbation at this time. Patient was started on IV Lasix 40 mg b.i.d. and leg swelling is improving. Cardiology was consulted and recommended to continue diuresis, and to continue monitoring his renal function since he also has LINDSEY and tried to prevent any worsening renal failure with diuresis. Patient is asymptomatic with his respiratory symptoms, no orthopnea. Continue monitoring intake and output. Appreciate cardiology's input Continue monitoring patient's symptoms. (2) Acute on chronic kidney failure: Code(s): N17.9 - Acute kidney failure, unspecified; N18.9 - Chronic kidney disease, unspecified Status: Chronic Assessment and Plan: Patient has acute on chronic renal insufficiency. Likely due to a combination of ARB and diuretic therapy. Will hold Arb and continue diuretic therapy. Creatinine stable today at 2.5. Consulting Nephrology for further renal evaluation since there is no improvement with diuresis. Will order Renal US. Continue diuresis and monitoring renal function, urine output Will repeat BMP in a.m.. Appreciate Nephrology's evaluation. (3) Fever: Qualifiers: Fever type: unspecified Qualified Code(s): R50.9 - Fever, unspecified Code(s): R50.9 - Fever, unspecified Status: Acute Assessment and Plan: The patient did have a low-grade fever and elevated CRP in the ER with abnormal chest x-ray. Concerning for possible pneumonia. the patient has already received both COVID vaccines but COVID PCR is pending the patient is on isolation. He has been started on empiric antibiotic therapy for Hospital Acquired PNA since he was here within the last 3 months, IV Cefepime and IV Vancomycin. Influenza swab negative . Blood cultures are negative to date Urine Antigens pending Will repeat CBC a.m.. Continue antibiotics at this time (4) Symptomatic anemia: Code(s): D64.9 - Anemia, unspecified Status: Acute Assessment and Plan: Regarding the patient's symptomatic anemia he has anemia of chronic disease, iron deficiency anemia and B12 deficiency. The patient's stools were negative for occult blood in the ER. His iron deficiency is likely due to nutritional deficiency decreased iron intake. However, he is on chronic anticoagulation with Xarelto and could certainly have some occult blood loss long-term with no acute occult blood loss. Gastroenterology was consulted from the ER who does not recommend any work up at this time from a GI perspective Cardiology recommended Hematology evaluation since he had extensive work up completed in [place] years ago due to his anemia issues as well as a bone marrow biopsy. Appreciate Hematology input. Oral iron supplementation BID has been ordered (to decrease the amount of fluid he receives due to pitting edema). IM B12 supplementation for 3 days, then switch to PO 1000 mcg daily have been ordered. 1 unit of packed red blood cells was ordered in the ER, but with his stable H&H, and to try and reduce the amount of fluid he receives, will hold on giving him 1 Unit and continue to trend his H&H. Continue monitoring H&H. Transfusion PRN if hemoglobin is less than 7. No acute signs of bleeding at this time. (5) Elevated troponin: Code(s): R77.8 - Other specified abnormalities of plasma proteins Status: Acute Assessment and Plan: Most likely due to fluid overload. Cardiology was consulted who feels at this time that his troponins were flat, chronic without any ischemic changes on EKG which is consistent with a Type 2 GA, not acute coronary syndome. Jimena
--- NOTE | 2021-01-10 16:37 | WPDGIPROGNO ---
Progress Note: A&P Assessment and Plan (1) Symptomatic anemia: Code(s): D64.9 - Anemia, unspecified Status: Acute Assessment and Plan: no signs of GIB, he has chronic anemia for years and even had BM bx recommend to consult hematology if appropriate no plan to repeat scopes unless obvious source of GIB please call us if questions (2) Congestive heart failure: Code(s): I50.9 - Heart failure, unspecified Status: Acute Assessment and Plan: medical treatment by cardiology (3) Acute on chronic kidney failure: Code(s): N17.9 - Acute kidney failure, unspecified; N18.9 - Chronic kidney disease, unspecified Status: Chronic (4) Pneumonia: Code(s): J18.9 - Pneumonia, unspecified organism Status: Acute Assessment and Plan: on antibiotics (5) Bilateral edema of lower extremity: Code(s): R60.0 - Localized edema Status: Acute Subjective Date/time seen: 01/10/21 16:37 Interval history: still tired but no new events, no signs of GIB Review of Systems Review of Systems: All systems reviewed & are unremarkable except as noted in HPI and below Exam Const: General: comfortable and ill appearing chronically HENMT: General nose exam: Normal nares present Eyes: General: appearance normal, both eyes and all related structures Neck: Neck: supple Resp: Auscultation: no wheezes and diminished lung sounds Cardio: Rate: regular rate GI: Inspection: non-distended GI Palp: Yes Soft to palpation and No Tenderness to palpation present (GI) Auscultation: normal bowel sounds Skin: General skin exam: no erythema Neuro: Speech: normal speech Motor exam (neuro): Normal motor muscle tone present throughout Extrem: General: pedal edema Psych: Mental Status: mental status grossly normal Objective Data Vital Signs Vital Signs: Vital Signs - 24 hr 01/09/21 18:00 01/09/21 20:00 01/09/21 21:32 Temperature 99.6 F Pulse Rate 94 90 94 Respiratory Rate 20 Blood Pressure 118/74 Pulse Oximetry 95 01/09/21 22:00 01/09/21 23:30 01/10/21 00:00 Temperature 98.9 F Pulse Rate 94 91 Respiratory Rate 20 Blood Pressure 117/78 Pulse Oximetry 96 98 01/10/21 02:00 01/10/21 04:00 01/10/21 06:00 Temperature 98.9 F Pulse Rate 88 84 82 Respiratory Rate 20 Blood Pressure 116/69 Pulse Oximetry 98 01/10/21 08:00 01/10/21 08:20 01/10/21 08:25 Temperature 96.8 F L Pulse Rate 88 93 105 H Respiratory Rate 19 Blood Pressure 108/55 L Pulse Oximetry 97 01/10/21 10:00 01/10/21 12:00 01/10/21 14:00 Temperature 97.0 F L Pulse Rate 79 82 82 Respiratory Rate 19 Blood Pressure 101/59 L Pulse Oximetry 95 01/10/21 16:00 Temperature Pulse Rate 83 Respiratory Rate Blood Pressure Pulse Oximetry Intake/Output Intake/Output: Intake & Output 01/07/21 01/08/21 01/09/21 01/10/21 23:59 23:59 23:59 23:59 Intake Total 1050 1280 920 Output Total 900 550 Balance 1050 380 370 Meds/Results Medications: Active Medications Generic Name Dose Route Start Last Admin Trade Name Freq PRN Reason Stop Dose Admin Albuterol 2 puff 01/08/21 23:51 Albuterol Sulfate (*Sp) Aerosol 1 Puff INHALATION Q6HRT PRN Shortness Of Breath Atorvastatin Calcium 10 mg 01/09/21 09:00 01/10/21 08:19 Atorvastatin 10 Mg Tablet PO 10 mg DAILY CESAR Administration Carvedilol 12.5 mg 01/10/21 21:00 Carvedilol 12.5 Mg Tablet PO Q12HR CESAR Cyanocobalamin 1,000 mcg 01/09/21 09:00 01/10/21 08:21 Cyanocobalamin Inj 1,000 Mcg/Ml Vial IM 01/11/21 09:01 1,000 mcg DAILY CESAR Administration Cyanocobalamin 1,000 mcg 01/12/21 09:00 Cyanocobalamin 1,000 Mcg Tablet PO QAM CESAR Dextrose 12.5 gm 01/10/21 08:41 Dextrose 50% 25 Gm/50 Ml Syringe IV PUSH PRN PRN Hypoglycemia Protocol Ferrous Sulfate 324 mg 01/09/21 08:00 01/10/21 08:18 Ferrous Sulfate 324 Mg
--- NOTE | 2021-01-10 16:45 | PM.CNNEP ---
Assessment and Plan Assessment and plan (1) LINDSEY (acute kidney injury): Code(s): N17.9 - Acute kidney failure, unspecified Status: Acute Assessment and Plan: etiology not clear related to anemia and decreased renal perfusion(?) versus infection (possible pneumonia?) renal ultrasound with acute findings (noted renal lesion that may need further imaging down at some point in time) recheck urine electrolytes (may be difficult to interpret with ongoing diuresis) reassess for proteinuria follow trend of creatinine -- on last hospitalization, diuresis actually improved his renal function.... (2) Stage 3b chronic kidney disease: Code(s): N18.32 - Chronic kidney disease, stage 3b Status: Chronic Assessment and Plan: creatinine has been fluctuating in the last year or so had been 1.0 - 1.3mg/d in 2020 however, more recently, creatinine has been running closer to 1.5 - 1.7mg/dl (due to disease progression?) presumably secondary to HTN, DM, vascular disease, age, and necessity of diuretic therapy to maintain volume status (3) Anemia: Code(s): D64.9 - Anemia, unspecified Status: Acute Assessment and Plan: long standing history PRBC transfusion per protocol due in part to iron and B12 deficiency follow trend of H/H (4) Hypertension: Code(s): I10 - Essential (primary) hypertension Status: Chronic Assessment and Plan: relative hypotension noted follow trend of hemodynamics (5) Fever: Qualifiers: Fever type: unspecified Qualified Code(s): R50.9 - Fever, unspecified Code(s): R50.9 - Fever, unspecified Status: Acute Assessment and Plan: related to possible pneumonia(?) on empiric antibiotics follow cultures (6) Diabetes: Code(s): E11.9 - Type 2 diabetes mellitus without complications Status: Chronic Assessment and Plan: follow accuchecks glycemic control Will continue to follow. History of Present Illness Reason for Consult Consult date: 01/10/21 Reason for consult: acute renal failure (on chronic kidney disease) Chief Complaint Chief complaint: Symptomatic Anemia, CHF History of Present Illness Narrative: The patient is a 80-year-old male with a past medical history as outlined below who presented to [facility] Emergency room with complaints of generalized weakness in association with fever and increased lower extremity edema. The patient states that he has been dealing with lower extremity edema for last 3 months since his last admission here at [facility] for a CHF exacerbation. During that hospital stay, he was aggressively diuresed and lost apparently almost 15 lb of fluid prior to discharge. Following discharge, he slowly noted that the swelling edema had been coming back but not as severe as it was on his last hospital stay. He seems to think that the swelling edema is has acutely worsened in the last several days in conjunction with the weakness and low-grade fever which prompted him to come to the emergency room for further evaluation. Workup and evaluation emergency room was significant for 3+ pitting edema in his lower extremities up to his mid thighs, hemodynamic stability, elevated pro BMP, a chemistry panel that showed some worsening of his baseline kidney disease, and a chest x-ray that showed evidence of possible edema versus pneumonia. Appropriate cultures were obtained, he was started on ambient antibiotic therapy, as well as IV diuretics on the assumption that his edema and chest x-ray findings may represent a CHF exacerbation. Since his admission, his lower extremity swelling/ edema has fluctuated and his renal function has not really significantly improved to his previous baseline. He has been seen in consultation by Cardiology who has recommended ongoing IV diuretic therapy to optimize his volume status on the presumption that this is acute diastolic
[2021-01-10 16:58] LABS: Glucose Point of Care 276 mg/dl (65-105)
[2021-01-10] MEDS: RIVAROXABAN 15 MG TABLET PO (17:21)
[2021-01-10] MEDS: CEFEPIME 0.5 GM in DEXTROSE 5% IN WATER 50 ML IVPB (17:26)
[2021-01-10] MEDS: carvediloL 12.5 MG TABLET PO (20:31)
[2021-01-10 20:59] LABS: Glucose Point of Care 293 mg/dl (65-105)
[2021-01-10 21:15] LABS: Hematocrit 22.2 % (42.0-52.0)
[2021-01-10 21:18] LABS: Hemoglobin 6.9 g/dL (14.0-18.0)
[2021-01-11] VITALS (22 sets, daily range): BP systolic 92–131; BP diastolic 50–69; PULSE 71–95; RESP 16–20; TEMP 36.2–36.6; O2SAT 95–100
[2021-01-11 05:34] LABS: Basophils Percent Auto 0.4 % (0.2-1.2); Eosinophils Absolute Auto 0.1 K/mm3 (0-0.3); Eosinophils Percent Auto 1.5 % (0-4.4); Hematocrit 22.2 % (42.0-52.0); Immature Granulocyte Absolute 0.04 K/mm3 (0.00-0.031); Immature Granulocyte Percent A 0.5 % (0-0.5); Lymphocytes Absolute Auto 1.44 K/mm3 (0.9-3.2); Lymphocytes Percent Auto 19.6 % (18.3-44.2); Mean Corpuscular HGB Conc 31.1 g/dl (32-36); Mean Corpuscular Volume 83.8 fl (80-100); Mean Platelet Volume 10.9 fl (7.4-10.4); Monocytes Absolute Auto 0.4 K/mm3 (0.1-0.6); Monocytes Percent Auto 5.4 % (2.6-8.5); Neutrophils Absolute Auto 5.3 K/mm3 (1.3-6.7); Neutrophils Percent Auto 72.6 % (45.5-73.1); Platelet Count Result 207 k/mm3 (150-375); Red Blood Count 2.65 M/mm3 (4.6-6.20); Red Cell Distribution Width 17.8 % (11.5-14.5); White Blood Count 7.4 K/mm3 (4.5-10.0)
[2021-01-11 05:43] LABS: Hemoglobin 6.9 g/dL (14.0-18.0)
[2021-01-11 05:45] LABS: Albumin Level 2.6 g/dL (3.5-5.1); Anion Gap 8 mmol/L (8-16); Blood Urea Nitrogen 72 mg/dL (9-20); Calcium 7.9 mg/dL (8.4-10.2); Carbon Dioxide 26 mmol/L (22-30); Chloride 100 mmol/L (98-107); Estimated CRCL calculation 28 ml/min; Estimated Glomerular Filt Rate 32; Glucose 230 mg/dL (75-110); Magnesium 1.9 mg/dL (1.6-2.3); Phosphorus 2.8 mg/dL (2.5-4.5); Potassium 3.6 mmol/L (3.4-5.0); Sodium 134 mmol/L (137-145)
[2021-01-11] MEDS: INSULIN ASPART (*BKC) 100 UNITS/ML SUB-Q ×3 (08:39→17:13)
[2021-01-11 08:42] LABS: Glucose Point of Care 211 mg/dl (65-105)
[2021-01-11] MEDS: carvediloL 12.5 MG TABLET PO ×2 (08:44→20:59)
[2021-01-11] MEDS: CYANOCOBALAMIN INJ 1,000 MCG/ML VIAL 1000 MCG IM (08:44)
[2021-01-11] MEDS: ATORVASTATIN 10 MG TABLET PO (08:44)
[2021-01-11] MEDS: FERROUS SULFATE 324 MG TABLET PO ×2 (08:45→17:15)
[2021-01-11] MEDS: SODIUM CHLORIDE 0.9% IV 250 ML 30 ML IV CONT (09:45)
[2021-01-11] MEDS: FUROSEMIDE INJ 40 MG/4 ML VIAL IV PUSH (10:02)
[2021-01-11] MEDS: ACETAMINOPHEN 325 MG TABLET 650 MG PO (10:38)
--- NOTE | 2021-01-11 10:48 | PM.PNCARD ---
Progress Note: A&P Assessment and Plan (1) Congestive heart failure: Code(s): I50.9 - Heart failure, unspecified <JIAN GargC - Last Filed: 01/11/21 11:04> Status: Acute <Lluvia Fowler APN-C - Last Filed: 01/11/21 11:04> Assessment and Plan: Continues to have moderate bilateral LE edema. Continue furosemide and monitor renal function closely. <JIAN GargC - Last Filed: 01/11/21 11:04> (2) Elevated troponin: Code(s): R77.8 - Other specified abnormalities of plasma proteins <JIAN GargC - Last Filed: 01/11/21 11:04> Status: Acute <Lluvia Fowler APN-C - Last Filed: 01/11/21 11:04> Assessment and Plan: Flat, chronic, without associated ischemic changes on EKG, ischemic symptoms secondary to chronic renal failure consistent with a type 2 infarct not acute coronary syndrome. Negative stress test earlier this year as an outpatient in our office. no plans or indication for invasive ischemic assessment at this time. <JIAN GargC - Last Filed: 01/11/21 11:04> (3) LINDSEY (acute kidney injury): Code(s): N17.9 - Acute kidney failure, unspecified <Lluvia Fowler APN-C - Last Filed: 01/11/21 11:04> Status: Acute <Lluvia Fowler APN-C - Last Filed: 01/11/21 11:04> Assessment and Plan: Acute on chronic renal failure. Avoid nephrotoxic agents. Hold losartan. Caution with diuretics. <Lluvia Fowler APN-C - Last Filed: 01/11/21 11:04> (4) Anemia of chronic disease: Code(s): D63.8 - Anemia in other chronic diseases classified elsewhere <Lluvia Fowler APN-C - Last Filed: 01/11/21 11:04> Status: Acute <Lluvia Fowler APN-C - Last Filed: 01/11/21 11:04> Assessment and Plan: multifactorial, acute on chronic. No clear clinical evidence for active bleed. May continue anticoagulation as appropriate with close observation of H&H. Guaiac negative. <PHILIPPE Garg - Last Filed: 01/11/21 11:04> (5) Atrial fibrillation: Code(s): I48.91 - Unspecified atrial fibrillation <PHILIPPE Garg - Last Filed: 01/11/21 11:04> Status: Acute <PHILIPPE Garg - Last Filed: 01/11/21 11:04> Assessment and Plan: Persistent, rate controlled, asymptomatic. May continue carvedilol and Xarelto. Telemetry for now. <PHILIPPE Garg - Last Filed: 01/11/21 11:04> (6) Hypertension associated with diabetes: Code(s): E11.59 - Type 2 diabetes mellitus with other circulatory complications; I15.2 - Hypertension secondary to endocrine disorders <PHILIPPE Garg - Last Filed: 01/11/21 11:04> Status: Acute <PHILIPPE Garg - Last Filed: 01/11/21 11:04> Assessment and Plan: BP reasonably controlled on present regimen. <PHILIPPE Garg - Last Filed: 01/11/21 11:04> (7) Pulmonary hypertension: Code(s): I27.20 - Pulmonary hypertension, unspecified <PHILIPPE Garg - Last Filed: 01/11/21 11:04> Status: Acute <PHILIPPE Garg - Last Filed: 01/11/21 11:04> Assessment and Plan: Moderate in severity RVSP 59 mm Hg. Patient claims apnea link performed previously do not see documented. He denies prior known history of KEV. per review records patient was previously utilizing BiPAP 17/03 in October. I would not be surprised if patient has significant KEV complicating management. <PHILIPPE Garg - Last Filed: 01/11/21 11:04> Additional Plan Attending Addendum: Patient personally seen and examined bedside. I agree with the above documentation and plan of care as outlined. Patient still feels weak in his legs denies shortness of breath chest. Transfused earlier today, IV infusion. Heart rate generally controlled on telemetry generally. Edema improving. PT working with patient. Hemoglobin 6.9 this morning creatinine 2.4 BUN 7
[2021-01-11 12:32] LABS: Glucose Point of Care 319 mg/dl (65-105)
--- NOTE | 2021-01-11 12:51 | PDONCCN ---
HPI - Date of Consult Date/Time: 01/11/21 12:51 Requesting Physician: Oumou Mercado PA-C Primary Care Provider: Ramez Ching MD - Consult Narrative Reason for consult: Normocytic anemia. Narrative: Khalif Yanez is a 80 year old male with history of atrial fibrillation and long history of anemia status post bone marrow biopsy done 20 years ago in [place] came back unremarkable. Patient also has history of congestive heart failure and chronic kidney disease. Currently he is on Xarelto for atrial fibrillation. He came into the hospital with bilateral lower extremity edema and feeling tired and fatigued. He denies any bleeding but does have some dark stool as he has been taking oral iron twice a day for last 3-4 months duration. He lost 20 lb weight in last 3 months duration. According to patient he has colonoscopy done within last couple of years duration and only showed polyps without any etiology for anemia. His blood on admission was 7.8. Has been complaining of tiredness and fatigue. Denies any chest pain and abdominal pain. He does have some shortness of breath and dyspnea on exertion. Review of Systems - Review of Systems All systems reviewed & are unremarkable except as noted in HPI and bel - Neurologic Reports system reviewed and no additional complaints, except as documented, Reports hearing normal, Denies abnormal speech, Denies behavioral changes, Denies confusion, Denies headache(s), Denies weakness [facility] Medical History: Medical History (Last Reviewed 01/09/21 @ 15:45 by Humberto Mae MD) Atrial fibrillation B12 deficiency anemia BPH (benign prostatic hyperplasia) Chronic anticoagulation Congestive heart failure Echocardiogram October 2020: Indeterminate diastolic function, EF 65-70%, mild right ventricular enlargement, mildly increased left ventricular wall thickness, mild left atrial enlargement, mild mitral valve regurgitation, mild tricuspid valve regurgitation, moderate pulmonary hypertension with RVSP 59, 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 Essential (primary) hypertension Hyperlipidemia associated with type 2 diabetes mellitus Hypertension associated with diabetes Iron deficiency anemia Mixed hyperlipidemia Umbilical hernia Surgical History: Surgical History (Last Reviewed 01/09/21 @ 15:45 by Humberto Mae MD) Normal colonoscopy Onset Date: ~2007 Status post bilateral knee replacements Status post cataract extraction of both eyes with insertion of intraocular lens Family History: Family History (Last Reviewed 01/09/21 @ 15:45 by Humberto Mae MD) Father Cerebrovascular accident Mother Hypertension Sibling Hypertension Kidney disease, chronic, end stage on dialysis - Social History Social History: Social History (Last Reviewed 01/09/21 @ 15:45 by Humberto Mae MD) Gender Identity: Gender identity (if verbalized by the patient): Male Alcohol Use: Alcohol intake: never Substance Use: Substance use: never Substance use type: does not use Others: Spiritual care concerns: Yes Spiritual care concerns comment: Lucianotent is pentacostal Smoking Status: Smoking status: Former smoker Tobacco type: cigarettes Second hand tobacco smoke exposure: No Smoking end date: 08/04/65 Smoking Pack-years: Smoking packs per day: 0.5 Smoking cigarettes per day: 10.0 Years smoked: 3 Smoking pack-years: 1.50 Meds Home Medications Medication Instructions Recorded Confirmed Type blood pressure monitor #1 each 01/10/20 01/09/21 Rx blood sugar diagnostic #100 each 01/10/20 01/09/21 Rx blood-glucose meter #1 each 01/10/20 01/09/21 Rx lancets #200 each 01/10/20 01/09/21 Rx tramadol 50 mg tablet 50 mg PO Q8H PRN #90 tablet 09/29/20 01/08/21 Rx Victoza 2-Vidal 1.2 mg SUBCUT DAILY 10/08/20 01/08/21 History pioglitazone 45 mg PO DAILY 10/08/20 01/08/21
--- NOTE | 2021-01-11 13:19 | PM.IMPN ---
Progress Note: A&P Assessment and Plan (1) Congestive heart failure: Code(s): I50.9 - Heart failure, unspecified Status: Acute Assessment and Plan: Patient had echocardiogram October 2020 which showed an indeterminate diastolic function, with the patient increased leg swelling it is most likely acute diastolic CHF exacerbation at this time. Patient was started on IV Lasix 40 mg b.i.d. and leg swelling is improving. Cardiology was consulted and recommended to continue diuresis, and to continue monitoring his renal function since he also has LINDSEY and tried to prevent any worsening renal failure with diuresis. Patient is asymptomatic with his respiratory symptoms, no orthopnea. Continue monitoring intake and output. Appreciate cardiology's input Continue monitoring patient's symptoms. (2) Acute on chronic kidney failure: Code(s): N17.9 - Acute kidney failure, unspecified; N18.9 - Chronic kidney disease, unspecified Status: Chronic Assessment and Plan: Patient has acute on chronic renal insufficiency. Likely due to a combination of ARB and diuretic therapy. Will hold Arb and continue diuretic therapy. Creatinine stable today at 2.4. Consulting Nephrology who is unsure if LINDSEY is related to anemia, vs other. Will add Albumin to see if it will help with diuresis. Renal US showed A few bilateral renal cysts. No hydronephrosis. Continue diuresis and monitoring renal function, urine output Will repeat BMP in a.m.. Appreciate Nephrology's evaluation. (3) Fever: Qualifiers: Fever type: unspecified Qualified Code(s): R50.9 - Fever, unspecified Code(s): R50.9 - Fever, unspecified Status: Acute Assessment and Plan: The patient did have a low-grade fever and elevated CRP in the ER with abnormal chest x-ray. Concerning for possible pneumonia. the patient has already received both COVID vaccines but COVID PCR is pending the patient is on isolation. He has been started on empiric antibiotic therapy for Hospital Acquired PNA since he was here within the last 3 months, IV Cefepime and IV Vancomycin. Influenza swab negative Blood cultures are negative to date Urine Antigens pending Will repeat CBC a.m.. Continue antibiotics at this time (4) Symptomatic anemia: Code(s): D64.9 - Anemia, unspecified Status: Acute Assessment and Plan: Regarding the patient's symptomatic anemia he has anemia of chronic disease, iron deficiency anemia and B12 deficiency. The patient's stools were negative for occult blood in the ER. His iron deficiency is likely due to nutritional deficiency decreased iron intake. However, he is on chronic anticoagulation with Xarelto and could certainly have some occult blood loss long-term with no acute occult blood loss. Gastroenterology was consulted from the ER who does not recommend any work up at this time from a GI perspective Cardiology recommended Hematology evaluation since he had extensive work up completed in [place] years ago due to his anemia issues as well as a bone marrow biopsy. Oral iron supplementation BID has been ordered (to decrease the amount of fluid he receives due to pitting edema). IM B12 supplementation for 3 days, then switch to PO 1000 mcg daily have been ordered. 01/11/21- H&H 6.04/25- 1 unit of packed red blood cells was ordered and going to be given. Recheck H&H. Hematology consulted for further input. Continue monitoring H&H. Transfusion PRN if hemoglobin is less than 7. No acute signs of bleeding at this time. (5) Elevated troponin: Code(s): R77.8 - Other specified abnormalities of plasma proteins Status: Acute Assessment and Plan: Most likely due to fluid overload. Cardiology was consulted who feels at this time that his troponins were flat, chronic without any ischemic changes on EKG which is consistent with a Type 2 [place], not acute coronary syndome. Patient garrett
--- NOTE | 2021-01-11 15:00 | PCPTNOTE ---
Pt was not seen for second session on this date due to time constraints. Will resume PT tomorrow
--- NOTE | 2021-01-11 15:15 | PM.PNNEP ---
Progress Note: A&P Assessment and Plan (1) LINDSEY (acute kidney injury): Code(s): N17.9 - Acute kidney failure, unspecified Status: Acute Assessment and Plan: etiology not clear related to anemia and decreased renal perfusion(?) versus infection (possible pneumonia?) renal ultrasound with acute findings (noted renal lesion that may need further imaging down at some point in time) recheck urine electrolytes (may be difficult to interpret with ongoing diuresis) reassess for proteinuria follow trend of creatinine -- on last hospitalization, diuresis actually improved his renal function.... (2) Stage 3b chronic kidney disease: Code(s): N18.32 - Chronic kidney disease, stage 3b Status: Chronic Assessment and Plan: creatinine has been fluctuating in the last year or so had been 1.0 - 1.3mg/d in 2020 however, more recently, creatinine has been running closer to 1.5 - 1.7mg/dl (due to disease progression?) presumably secondary to HTN, DM, vascular disease, age, and necessity of diuretic therapy to maintain volume status (3) Anemia: Code(s): D64.9 - Anemia, unspecified Status: Acute Assessment and Plan: long standing history PRBC transfusion per protocol due in part to iron and B12 deficiency follow trend of H/H (4) Hypertension: Code(s): I10 - Essential (primary) hypertension Status: Chronic Assessment and Plan: relative hypotension noted follow trend of hemodynamics (5) Fever: Qualifiers: Fever type: unspecified Qualified Code(s): R50.9 - Fever, unspecified Code(s): R50.9 - Fever, unspecified Status: Acute Assessment and Plan: related to possible pneumonia(?) on empiric antibiotics follow cultures (6) Bilateral edema of lower extremity: Code(s): R60.0 - Localized edema Status: Acute Assessment and Plan: will try IV albumin chased with IV bumex for a few doses this might promote diuresis and minimize rise in BUN and creatinine follow I/Os and exam (7) Diabetes: Code(s): E11.9 - Type 2 diabetes mellitus without complications Status: Chronic Assessment and Plan: follow accuchecks glycemic control Will continue to follow. Subjective Date/time seen: 01/11/21 15:15 Issues with fatigue but in no apparent distress; he still has some lower extremity swelling/edema but he states it seems better to him currently; no other acute issues or problems to report; no events overnight or earlier this AM. Exam Narrative: Exam Narrative: General: WD/WN male in NAD Heart: normal S1 and S2; IRRR; no rub Lungs: clear to auscultation Abdomen: soft, nontender, nondistended, positive bowel sounds Extremities: no cyanosis or clubbing; 2+ edema Skin: warm and dry Objective Data Vital Signs Vital Signs: Vital Signs Temp Pulse Resp BP Pulse Ox 01/11/21 13:30 36.5 C 86 18 101/62 100 01/11/21 13:10 36.2 C L 78 18 92/58 L 98 01/11/21 12:10 36.4 C 84 20 97/59 L 100 01/11/21 11:10 36.6 C 72 20 98/52 L 98 01/11/21 10:10 36.2 C L 83 20 113/63 96 01/11/21 09:54 36.2 C L 79 20 100/69 97 01/11/21 09:18 97 01/11/21 08:44 95 01/11/21 08:00 36.4 C L 86 16 104/59 L 98 01/11/21 06:00 82 01/11/21 04:00 36.4 C 82 20 125/64 100 01/11/21 02:00 73 01/11/21 00:00 84 01/10/21 23:42 36.6 C 74 18 116/56 L 97 01/10/21 22:00 77 01/10/21 20:31 80 Intake/Output Intake/Output: Intake & Output 01/08/21 01/09/21 01/10/21 01/11/21 23:59 23:59 23:59 23:59 Intake Total 1050 1330 1410 2033 Output Total 347 895 4062 Balance 1050 430 860 758 Meds/Results Medications: Active Medications Generic Name Dose Route Start Last Admin Trade Name Freq PRN Reason Stop Dose Admin Acetaminophen 650 mg 01/11/21 09:20 01/11/21 10:38 Acetaminophen 325 Mg Tablet PO 650 mg Q4
--- NOTE | 2021-01-11 15:15 | P.PNNP_ITS ---
Progress Note: A&P Assessment and Plan (1) LINDSEY (acute kidney injury): Code(s): N17.9 - Acute kidney failure, unspecified Status: Acute Assessment and Plan: * etiology not clear * related to anemia and decreased renal perfusion(?) versus infection (possible pneumonia?) * renal ultrasound with acute findings (noted renal lesion that may need further imaging down at some point in time) * recheck urine electrolytes (may be difficult to interpret with ongoing diuresis) * reassess for proteinuria * follow trend of creatinine -- on last hospitalization, diuresis actually improved his renal function.... (2) Stage 3b chronic kidney disease: Code(s): N18.32 - Chronic kidney disease, stage 3b Status: Chronic Assessment and Plan: * creatinine has been fluctuating in the last year or so * had been 1.0 - 1.3mg/d in 2020 * however, more recently, creatinine has been running closer to 1.5 - 1.7mg/dl (due to disease progression?) * presumably secondary to HTN, DM, vascular disease, age, and necessity of diuretic therapy to maintain volume status (3) Anemia: Code(s): D64.9 - Anemia, unspecified Status: Acute Assessment and Plan: * long standing history * PRBC transfusion per protocol * due in part to iron and B12 deficiency * follow trend of H/H (4) Hypertension: Code(s): I10 - Essential (primary) hypertension Status: Chronic Assessment and Plan: * relative hypotension noted * follow trend of hemodynamics (5) Fever: Qualifiers: Fever type: unspecified Qualified Code(s): R50.9 - Fever, unspecified Code(s): R50.9 - Fever, unspecified Status: Acute Assessment and Plan: * related to possible pneumonia(?) * on empiric antibiotics * follow cultures (6) Bilateral edema of lower extremity: Code(s): R60.0 - Localized edema Status: Acute Assessment and Plan: * will try IV albumin chased with IV bumex for a few doses * this might promote diuresis and minimize rise in BUN and creatinine * follow I/Os and exam (7) Diabetes: Code(s): E11.9 - Type 2 diabetes mellitus without complications Status: Chronic Assessment and Plan: * follow accuchecks * glycemic control Will continue to follow. Subjective Date/time seen: 01/11/21 15:15 Issues with fatigue but in no apparent distress; he still has some lower extremity swelling/edema but he states it seems better to him currently; no other acute issues or problems to report; no events overnight or earlier this AM. Exam Narrative: Exam Narrative: General: WD/WN male in NAD Heart: normal S1 and S2; IRRR; no rub Lungs: clear to auscultation Abdomen: soft, nontender, nondistended, positive bowel sounds Extremities: no cyanosis or clubbing; 2+ edema Skin: warm and dry Objective Data Vital Signs Vital Signs: Vital Signs Temp Pulse Resp BP Pulse Ox 01/11/21 13:30 36.5 C 86 18 101/62 100 01/11/21 13:10 36.2 C L 78 18 92/58 L 98 01/11/21 12:10 36.4 C 84 20 97/59 L 100 01/11/21 11:10 36.6 C 72 20 98/52 L 98 01/11/21 10:10 36.2 C L 83 20 113/63 96 01/11/21 09:54 36.2 C L 79 20 100/69 97 01/11/21 09:18 97 01/11/21 08:44 95 01/11/21 08:00 36.4 C L 86 16 104/59 L 98 01/11/21 06:00 82
[2021-01-11] MEDS: ALBUMIN HUMAN 25% 12.5 GM/50ML 50 ML IVPB ×2 (15:56→23:09)
[2021-01-11 16:26] LABS: Glucose Point of Care 232 mg/dl (65-105)
[2021-01-11] MEDS: RIVAROXABAN 15 MG TABLET PO (17:30)
[2021-01-11] MEDS: BUMETANIDE INJ 1 MG/4 ML VIAL IV PUSH (17:30)
[2021-01-11] MEDS: CEFEPIME 0.5 GM in DEXTROSE 5% IN WATER 50 ML IVPB (17:33)
[2021-01-11 17:57] LABS: Hemoglobin 9.2 g/dL (14.0-18.0)
[2021-01-11 20:02] LABS: Vancomycin Trough 12.5 ug/mL (10.0-20.0)
[2021-01-11 20:37] LABS: Glucose Point of Care 229 mg/dl (65-105)
[2021-01-12] VITALS (12 sets, daily range): BP systolic 108–132; BP diastolic 63–68; PULSE 65–84; RESP 16–20; TEMP 36.1–36.9; O2SAT 94–99
[2021-01-12] MEDS: BUMETANIDE INJ 1 MG/4 ML VIAL IV PUSH ×4 (00:06→23:46)
[2021-01-12 05:28] LABS: Hematocrit 23.3 % (42.0-52.0); Hemoglobin 7.4 g/dL (14.0-18.0); Mean Corpuscular HGB Conc 31.8 g/dl (32-36); Mean Corpuscular Hemoglobin 26.1 pg (26-34); Mean Corpuscular Volume 82.3 fl (80-100); Mean Platelet Volume 10.8 fl (7.4-10.4); Platelet Count Result 220 k/mm3 (150-375); Red Blood Count 2.83 M/mm3 (4.6-6.20); Red Cell Distribution Width 17.4 % (11.5-14.5)
[2021-01-12 05:45] LABS: Albumin Level 2.7 g/dL (3.5-5.1); Anion Gap 8 mmol/L (8-16); Blood Urea Nitrogen 80 mg/dL (9-20); Calcium 8.1 mg/dL (8.4-10.2); Carbon Dioxide 24 mmol/L (22-30); Chloride 100 mmol/L (98-107); Estimated CRCL calculation 29 ml/min; Estimated Glomerular Filt Rate 33; Glucose 210 mg/dL (75-110); Magnesium 1.9 mg/dL (1.6-2.3); Phosphorus 3.2 mg/dL (2.5-4.5); Sodium 132 mmol/L (137-145)
[2021-01-12 06:00] LABS: Potassium 3.4 mmol/L (3.4-5.0)
[2021-01-12 06:10] LABS: Abnormal Protein Band 1 0.8 g/dL; Albumin 2.7 g/dL (3.8-4.8); Alpha 1 Globulin 0.5 g/dL (0.2-0.3); Alpha 2 Globulin 0.9 g/dL (0.5-0.9); Beta 1 Globulin 0.4 g/dL (0.4-0.6); Gamma Globulin 1.6 g/dL (0.8-1.7); Protein, Total 6.5 g/dL (6.1-8.1)
[2021-01-12] MEDS: ALBUMIN HUMAN 25% 12.5 GM/50ML 50 ML IVPB ×3 (06:29→21:09)
[2021-01-12] MEDS: INSULIN ASPART (*BKC) 100 UNITS/ML SUB-Q ×3 (08:00→17:44)
[2021-01-12] MEDS: CYANOCOBALAMIN 1,000 MCG TABLET 1000 MCG PO (08:03)
[2021-01-12] MEDS: ATORVASTATIN 10 MG TABLET PO (08:03)
[2021-01-12] MEDS: carvediloL 12.5 MG TABLET PO ×2 (08:03→21:00)
[2021-01-12] MEDS: FERROUS SULFATE 324 MG TABLET PO ×2 (08:04→17:05)
[2021-01-12 08:54] LABS: Glucose Point of Care 203 mg/dl (65-105)
--- NOTE | 2021-01-12 09:48 | PM.PNCARD ---
Progress Note: A&P Assessment and Plan (1) Congestive heart failure: Code(s): I50.9 - Heart failure, unspecified <JIAN GargC - Last Filed: 01/12/21 14:24> Status: Acute <Lluvia KarolJIAN CravenC - Last Filed: 01/12/21 14:24> Assessment and Plan: Continues to have moderate bilateral LE edema. Continue furosemide and monitor renal function closely. 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 Negative stress test earlier this year as an outpatient in our office. no plans or indication for invasive ischemic assessment at this time. <JIAN GargC - Last Filed: 01/12/21 14:24> (3) LINDSEY (acute kidney injury): Code(s): N17.9 - Acute kidney failure, unspecified <Lluvia Fowler APN-C - Last Filed: 01/12/21 14:24> Status: Acute <JIAN GargC - Last Filed: 01/12/21 14:24> Assessment and Plan: Acute on chronic renal failure. Avoid nephrotoxic agents. Hold losartan. Caution with diuretics. <JIAN GargC - Last Filed: 01/12/21 14:24> (4) Anemia of chronic disease: Code(s): D63.8 - Anemia in other chronic diseases classified elsewhere <JIAN GargC - Last Filed: 01/12/21 14:24> Status: Acute <Lluvia Fowler APN-Jane - Last Filed: 01/12/21 14:24> Assessment and Plan: Multifactorial, acute on chronic. No clear clinical evidence for active bleed. H&H dropped overnight despite blood transfusion yesterday. Spoke with hospitalist about plan to c/s GI for poss. scope to identify possible source of bleeding. Xarelto has been placed on hold in the setting of persistent anemia. <JIAN GargC - Last Filed: 01/12/21 14:24> (5) Atrial fibrillation: Code(s): I48.91 - Unspecified atrial fibrillation <JIAN GargC - Last Filed: 01/12/21 14:24> Status: Acute <Lluvia Fowler APN-C - Last Filed: 01/12/21 14:24> Assessment and Plan: Persistent, rate controlled, asymptomatic. May continue carvedilol. Xarelto now on hold. See above. <PHILIPPE Garg - Last Filed: 01/12/21 14:24> (6) Hypertension associated with diabetes: Code(s): E11.59 - Type 2 diabetes mellitus with other circulatory complications; I15.2 - Hypertension secondary to endocrine disorders <JIAN GargC - Last Filed: 01/12/21 14:24> Status: Acute <PHILIPPE Garg - Last Filed: 01/12/21 14:24> Assessment and Plan: BP reasonably controlled on present regimen. <PHILIPPE Garg - Last Filed: 01/12/21 14:24> (7) Pulmonary hypertension: Code(s): I27.20 - Pulmonary hypertension, unspecified <JIAN GargC - Last Filed: 01/12/21 14:24> Status: Acute <PHILIPPE Garg - Last Filed: 01/12/21 14:24> Assessment and Plan: Moderate in severity RVSP 59 mm Hg. Patient claims apnea link performed previously do not see documented. He denies prior known history of KEV. per review records patient was previously utilizing BiPAP 17/03 in October. I would not be surprised if patient has significant KEV complicating management. <JIAN GargC - Last Filed: 01/12/21 14:24> Additional Plan Attending Addendum: I have personally seen and examined patient at bedside. I agree with the above documentation and plan of care as outlined. Patient feeling better after blood transfusion yesterday. Still notes weakness and pain in his legs, edema
[2021-01-12 12:22] LABS: Hematocrit 24.2 % (42.0-52.0); Hemoglobin 7.5 g/dL (14.0-18.0)
[2021-01-12 12:23] LABS: Glucose Point of Care 204 mg/dl (65-105)
--- NOTE | 2021-01-12 12:46 | PM.IMPN ---
Progress Note: A&P Assessment and Plan (1) Symptomatic anemia: Code(s): D64.9 - Anemia, unspecified Status: Acute Assessment and Plan: Regarding the patient's symptomatic anemia he has anemia of chronic disease, iron deficiency anemia and B12 deficiency. The patient's stools were negative for occult blood in the ER. His iron deficiency is likely due to nutritional deficiency decreased iron intake. However, he is on chronic anticoagulation with Xarelto and could certainly have some occult blood loss long-term with no acute occult blood loss. 01/11/21- H&H .04/25- 1 unit of packed red blood cells was ordered and going to be given. Recheck H&H was 9.2/30% 01/12/21- H&H decreased to 7.4/23%. Talked to Hematology who believes it could be secondary to CKD vs Iron Deficiency Anemia vs Blood loss anemia from Xarelto. Will HOLD Xarelto at this time and check Stool Occult Blood again to see if having a GI bleed. Cardiology is in agreement to hold Xarelto at this time. If positive Stool Occult will discuss with GI again. Continue IV Venofer x4 doses and IM B12 supplementation was given for 3 days, Now, switched to PO 1000 mcg daily. Patient feeling well, not as fatigued as yesterday. Continue monitoring H&H. Transfusion PRN if hemoglobin is less than 7. No acute signs of bleeding at this time. (2) Acute on chronic kidney failure: Code(s): N17.9 - Acute kidney failure, unspecified; N18.9 - Chronic kidney disease, unspecified Status: Chronic Assessment and Plan: Patient has acute on chronic renal insufficiency. Likely due to a combination of ARB and diuretic therapy. Will hold Arb and continue diuretic therapy. Renal US showed A few bilateral renal cysts. No hydronephrosis. Creatinine stable today at 2.3. Nephrology continuing with IV Albumin prior to diuretics. Talked to Nephrology who stated the patient has a POSITIVE Abnormal Protein band 1 and is going to do a Kidney Biopsy Friday Morning to further evaluation for Myeloma or MGUS. This could be the reason why the patients creatinine is worse over the last 1 year. Continue diuresis and monitoring renal function, urine output Will repeat BMP in a.m.. Appreciate Nephrology's evaluation. (3) Congestive heart failure: Code(s): I50.9 - Heart failure, unspecified Status: Acute Assessment and Plan: Patient had echocardiogram October 2020 which showed an indeterminate diastolic function, with the patient increased leg swelling it is most likely acute diastolic CHF exacerbation at this time. Patient was started on IV Lasix 40 mg b.i.d. and leg swelling is improving. Talked to Nephrology who began IV Albumin prior to IV Lasix starting last night, continue monitoring diuresis. Cardiology was consulted and recommended to continue diuresis, and to continue monitoring his renal function since he also has LINDSEY and tried to prevent any worsening renal failure with diuresis. Patient is asymptomatic with his respiratory symptoms, no orthopnea. Continue monitoring intake and output. Appreciate cardiology's and Nephrology input Continue monitoring patient's symptoms. (4) Fever: Qualifiers: Fever type: unspecified Qualified Code(s): R50.9 - Fever, unspecified Code(s): R50.9 - Fever, unspecified Status: Acute Assessment and Plan: The patient did have a low-grade fever and elevated CRP in the ER with abnormal chest x-ray. Concerning for possible pneumonia. the patient has already received both COVID vaccines but COVID PCR is pending the patient is on isolation. He has been started on empiric antibiotic therapy for Hospital Acquired PNA since he was hospitalized within the last 3 months, IV Cefepime and IV Vancomycin (Day #5). Will continue for 7 days today. Influenza swab negative Blood cultures are negative to date Urine Antigens negative Will repeat CBC a.m.. Continue antibiotics at this time
[2021-01-12] MEDS: ACETAMINOPHEN 325 MG TABLET 650 MG PO (13:35)
[2021-01-12] MEDS: polyethylene glycoL 3350 17 GM POWD.PACK PO (13:35)
--- NOTE | 2021-01-12 13:56 | P.PNNP_ITS ---
Progress Note: A&P Assessment and Plan (1) LINDSEY (acute kidney injury): Code(s): N17.9 - Acute kidney failure, unspecified Status: Acute Assessment and Plan: * etiology not clear * He had a normal creatinine in June. * He had acute kidney injury in October which improved to a creatinine of 1.6 then stayed there. * Now has another episode of acute kidney injury which started out at 2.6 and now is 2.3. * renal ultrasound show no issues regarding acute kidney injury. There is a hemorrhagic cyst which needs to be further evaluated. * Urine electrolytes are listed as pending. Will just repeat them since it has been 3 days. * Mildly elevated urine protein at 570 back in October. * Etiology of AK eye is unclear. Will assess for inflammatory disease. * Immunofixation shows an abnormal band. * He may need renal biopsy. Dr. Pelletier is on the case. (2) Stage 3b chronic kidney disease: Code(s): N18.32 - Chronic kidney disease, stage 3b Status: Chronic Assessment and Plan: * Technically chronic kidney disease because his GFR has been elevated for more than 3 months but this looks more like a smoldering picture with worsened creatinine over the last 3-6 months. * If things do not turn around by Friday consider biopsy. (3) Anemia: Code(s): D64.9 - Anemia, unspecified Status: Acute Assessment and Plan: * long standing history * PRBC transfusion per protocol * due in part to iron and B12 deficiency * Hemoglobin down a bit. Check stool guaiacs. * Getting iron per are shot. (4) Hypertension: Code(s): I10 - Essential (primary) hypertension Status: Chronic Assessment and Plan: * Systolic blood pressure doing pretty well right now. * follow trend of hemodynamics (5) Fever: Qualifiers: Fever type: unspecified Qualified Code(s): R50.9 - Fever, unspecified Code(s): R50.9 - Fever, unspecified Status: Acute Assessment and Plan: * related to possible pneumonia(?) * on empiric antibiotics * follow cultures (6) Bilateral edema of lower extremity: Code(s): R60.0 - Localized edema Status: Acute Assessment and Plan: * Etiology unclear. * Echocardiogram looked okay. * He was on amlodipine which could add to this however this has been discontinue d since admission. * No history of liver disease. Bilirubin is been okay. * Venous Dopplers are negative. * Check CT abdomen to rule out retroperitoneal process. * Getting IV albumin chased with IV bumex for a few doses. Urine output not that great. Will give 2 doses of metolazone. * follow I/Os and exam (7) Diabetes: Code(s): E11.9 - Type 2 diabetes mellitus without complications Status: Chronic Assessment and Plan: * follow accuchecks * glycemic control Subjective Date/time seen: 01/12/21 13:56 Interval history: Mr. Yanez is feeling okay. He still has some swelling. Left greater than right. This is much better than on admission but still has some there. No shortness of breath. Exam Narrative: Exam Narrative: General: WD/WN male in NAD Heart: normal S1 and S2; IRRR; no rub Lungs: clear to auscultation Abdomen: soft, nontender, nondistended, positive bowel sounds Extremities: 1-2+ edema, left greater than right Skin: warm and dry without rash Objective Data Vital Signs Vital Signs: Vital Signs - 24 hr 01/11/21 14:0
--- NOTE | 2021-01-12 13:56 | PM.PNNEP ---
Progress Note: A&P Assessment and Plan (1) LINDSEY (acute kidney injury): Code(s): N17.9 - Acute kidney failure, unspecified Status: Acute Assessment and Plan: etiology not clear He had a normal creatinine in June. He had acute kidney injury in October which improved to a creatinine of 1.6 then stayed there. Now has another episode of acute kidney injury which started out at 2.6 and now is 2.3. renal ultrasound show no issues regarding acute kidney injury. There is a hemorrhagic cyst which needs to be further evaluated. Urine electrolytes are listed as pending. Will just repeat them since it has been 3 days. Mildly elevated urine protein at 570 back in October. Etiology of AK eye is unclear. Will assess for inflammatory disease. Immunofixation shows an abnormal band. He may need renal biopsy. Dr. Pelletier is on the case. (2) Stage 3b chronic kidney disease: Code(s): N18.32 - Chronic kidney disease, stage 3b Status: Chronic Assessment and Plan: Technically chronic kidney disease because his GFR has been elevated for more than 3 months but this looks more like a smoldering picture with worsened creatinine over the last 3-6 months. If things do not turn around by Friday consider biopsy. (3) Anemia: Code(s): D64.9 - Anemia, unspecified Status: Acute Assessment and Plan: long standing history PRBC transfusion per protocol due in part to iron and B12 deficiency Hemoglobin down a bit. Check stool guaiacs. Getting iron per are shot. (4) Hypertension: Code(s): I10 - Essential (primary) hypertension Status: Chronic Assessment and Plan: Systolic blood pressure doing pretty well right now. follow trend of hemodynamics (5) Fever: Qualifiers: Fever type: unspecified Qualified Code(s): R50.9 - Fever, unspecified Code(s): R50.9 - Fever, unspecified Status: Acute Assessment and Plan: related to possible pneumonia(?) on empiric antibiotics follow cultures (6) Bilateral edema of lower extremity: Code(s): R60.0 - Localized edema Status: Acute Assessment and Plan: Etiology unclear. Echocardiogram looked okay. He was on amlodipine which could add to this however this has been discontinued since admission. No history of liver disease. Bilirubin is been okay. Venous Dopplers are negative. Check CT abdomen to rule out retroperitoneal process. Getting IV albumin chased with IV bumex for a few doses. Urine output not that great. Will give 2 doses of metolazone. follow I/Os and exam (7) Diabetes: Code(s): E11.9 - Type 2 diabetes mellitus without complications Status: Chronic Assessment and Plan: follow accuchecks glycemic control Subjective Date/time seen: 01/12/21 13:56 Interval history: Mr. Yanez is feeling okay. He still has some swelling. Left greater than right. This is much better than on admission but still has some there. No shortness of breath. Exam Narrative: Exam Narrative: General: WD/WN male in NAD Heart: normal S1 and S2; IRRR; no rub Lungs: clear to auscultation Abdomen: soft, nontender, nondistended, positive bowel sounds Extremities: 1-2+ edema, left greater than right Skin: warm and dry without rash Objective Data Vital Signs Vital Signs: Vital Signs - 24 hr 01/11/21 14:00 01/11/21 16:00 01/11/21 18:00 Temperature 36.5 C Pulse Rate 88 81 77 Respiratory Rate 18 Blood Pressure 98/50 L Pulse Oximetry 100 01/11/21 19:24 01/11/21 20:00 01/11/21 20:59 Temperature 36.6 C Pulse Rate 81 88 79 Respiratory Rate 18 Blood Pressure 131/61 Pulse Oximetry 95 01/11/21 22:00 01/12/21 00:00 01/12/21 02:00 Temperature 36.1 C L Pulse Rate 71 81 83 Respiratory Rate 16 Blood Pressure 124/64 Pulse Oximetry 94 01/12/21 04:00 01/12/21 06:00 01/12/21 08:00 Temperature 36.2 C
[2021-01-12] MEDS: metOLazone 5 MG TABLET PO (14:38)
--- NOTE | 2021-01-12 15:10 | PC.NURSE ---
Orders to transfer to med/tel- report given to Esthela MORALES- pt moved to room 252 via bed accompanied by staff and personal belongings with pt.
[2021-01-12 15:11] LABS: Abnormal Protein Band 1 5 mg/dL; Creatinine, Random Urine 143 mg/dL (20-320); Total Protein/Creatinine Ratio 406 mg/g creat (22-128)
--- NOTE | 2021-01-12 16:13 | WPDONCPN ---
Progress Note: A/P - Additional Plan Normocytic anemia. Multifactorial. This is likely secondary to anemia of chronic kidney disease. Plan is to perform kidney biopsy. 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 M spike of 0.8 gram/deciliter. I will check quantitative immunoglobulin, serum free light chain studies and immunofixation testing. Based on kidney biopsy will decide about performing a bone marrow biopsy. In the meantime patient will continue Procrit [id number] units on a biweekly basis. Vitamin B12 and iron deficiency. Patient is receiving B12 injection and iron replacement. - Time Spent With Patient Total time spent is greater than 50% in coordination of care (as documented) at patient's floor/unit and/or counseling patient: 15 - 25 minutes Subjective Interval history: Normocytic anemia Review of Systems - Review of Systems Patient complain of bilateral lower extremity pain and weakness. Denies any bleeding including melena hematochezia. He remains tired and fatigued. No fevers and chills. No other new complaint. - Neurologic Reports system reviewed and no additional complaints, except as documented, Reports hearing normal, Denies abnormal speech, Denies behavioral changes, Denies confusion, Denies headache(s), Denies weakness Exam Vital signs: Temp Pulse Resp BP Pulse Ox 36.6 C 76 18 125/68 99 01/12/21 12:00 01/12/21 14:00 01/12/21 12:00 01/12/21 12:00 01/12/21 12:00 Narrative: Lungs are clear to auscultation bilaterally Cardiovascular regular rate rhythm no murmurs Abdomen soft nontender nondistended bowel sounds are positive Extremities bilateral 3+ pitting edema PN: Objective Data - Labs CBC & Chem 7: 01/12/21 09:41 01/12/21 04:47 Labs: Laboratory Results - last 24 hr 01/08/21 01/08/21 01/11/21 18:31 18:41 16:01 WBC RBC Hgb Hct MCV MCH MCHC RDW Plt Count MPV Sodium Potassium Chloride Carbon Dioxide Anion Gap BUN Creatinine Estim Creat Clear Calc Estimated GFR Glucose POC Capillary Glucose 232 H Calcium Phosphorus Magnesium Total Protein 6.5 Albumin 2.7 L Xnevv-8-Wzhhooftw 0.5 H Uvgjp-9-Zavhacprg 0.9 Kqjp-2-Qbfjrefo 0.4 Skqf-4-Zrphwdwl 0.4 Gamma Globulins 1.6 Abnorm Protein Band 1 0.8 H Abnorm Protein Band 3 Not Reportable PEP Interpretation see below A Ur Random Creatinine 143 U Random Total Protein 58 H Protein/Creatinin Ratio 406 H Urine Albumin 64 U Jnegw-6-Essimmtf 2 U Jgyiz-7-Roaavyfa 8 U Beta Globulin 7 U Gamma Globulin 20 U Abnormal Prot Band 1 5 H U Abnormal Prot Band 2 Not Reportable U Abnormal Prot Band 3 Not Reportable Urine PEP Interpret see below A Vancomycin Trough 01/11/21 01/11/21 01/11/21 17:49 19:11 20:16 WBC RBC Hgb 9.2 L Hct 30.0 L MCV MCH MCHC RDW Plt Count MPV Sodium Potassium Chloride Carbon Dioxide Anion Gap BUN Creatinine Estim Creat Clear Calc Estimated GFR Glucose POC Capillary Glucose 229 H Calcium Phosphorus Magnesium Total Protein Albumin Nnfsf-2-Czvpqdpju Cwuap-4-Itndutyfl Pljs-8-Dhqdicau Udmf-1-Vzxyjszn Gamma Globulins Abnorm Protein Band 1 Abnorm Protein Band 3 PEP Interpretation Ur Random Creatinine U Random Total Protein Protein/Creatinin Ratio Urine Albumin U Jgpje-9-Inndhzos U Aaoqk-2-Jwrlgzkj U Beta Globulin U Gamma Globulin U Abnormal Prot Band 1 U Abnormal Prot Band 2 U Abnormal Prot Band 3 Urine PEP Interpret Vancomycin Trough 12.5 01/12/21 01/12/21 01/12/21 04:47 04:47 07:56 WBC 6.0 RBC 2.83 L Hgb 7.4 L Hct 23.3 L MCV 82.3 MCH 26.1 MCHC 31.8 L RDW 17.4 H Plt Count 220 MPV 10.8 H Sodium 1
--- NOTE | 2021-01-12 16:16 | PC.NURSE ---
Transfer received from IMU at 1515 01/12/21.
[2021-01-12 16:17] LABS: Hematocrit 24.3 % (42.0-52.0)
[2021-01-12 16:37] LABS: Immunoglobulin A 170 mg/dL (70-400); Immunoglobulin G 1479 mg/dL (700-1600); Immunoglobulin M 48 mg/dL (40-230)
[2021-01-12] MEDS: CEFEPIME 0.5 GM in DEXTROSE 5% IN WATER 50 ML IVPB (17:07)
[2021-01-12 17:42] LABS: Glucose Point of Care 204 mg/dl (65-105)
[2021-01-12 17:50] LABS: Soluble Transferrin Receptor 2.11 mg/L (0.76-1.76)
[2021-01-12] MEDS: DOCUSATE SODIUM 100 MG CAPSULE PO (21:00)
[2021-01-12 21:18] LABS: Glucose Point of Care 284 mg/dl (65-105)
[2021-01-12 21:40] LABS: Haptoglobin 405 mg/dL (43-212)
[2021-01-12 23:41] LABS: Hematocrit 23.1 % (42.0-52.0); Hemoglobin 7.3 g/dL (14.0-18.0)
[2021-01-13] VITALS (11 sets, daily range): BP systolic 108–131; BP diastolic 48–70; PULSE 69–82; RESP 16–20; TEMP 35.9–37.1; O2SAT 96–99
[2021-01-13] MEDS: MELATONIN 3 MG TABLET PO (01:27)
[2021-01-13 05:50] LABS: Hematocrit 23.6 % (42.0-52.0); Hemoglobin 7.3 g/dL (14.0-18.0); Mean Corpuscular HGB Conc 30.9 g/dl (32-36); Mean Corpuscular Hemoglobin 26.2 pg (26-34); Mean Corpuscular Volume 84.6 fl (80-100); Mean Platelet Volume 10.6 fl (7.4-10.4); Platelet Count Result 228 k/mm3 (150-375); Red Blood Count 2.79 M/mm3 (4.6-6.20); Red Cell Distribution Width 17.3 % (11.5-14.5); White Blood Count 5.8 K/mm3 (4.5-10.0)
[2021-01-13 06:03] LABS: Albumin Level 2.8 g/dL (3.5-5.1); Anion Gap 10 mmol/L (8-16); Blood Urea Nitrogen 83 mg/dL (9-20); Calcium 8.4 mg/dL (8.4-10.2); Carbon Dioxide 24 mmol/L (22-30); Chloride 100 mmol/L (98-107); Estimated CRCL calculation 27 ml/min; Estimated Glomerular Filt Rate 30; Glucose 211 mg/dL (75-110); Magnesium 1.8 mg/dL (1.6-2.3); Phosphorus 3.8 mg/dL (2.5-4.5); Potassium 3.3 mmol/L (3.4-5.0); Sodium 134 mmol/L (137-145)
[2021-01-13] MEDS: ALBUMIN HUMAN 25% 12.5 GM/50ML 50 ML IVPB (06:04)
[2021-01-13] MEDS: metOLazone 5 MG TABLET PO (08:03)
[2021-01-13] MEDS: DOCUSATE SODIUM 100 MG CAPSULE PO ×2 (08:03→21:04)
[2021-01-13] MEDS: CYANOCOBALAMIN 1,000 MCG TABLET 1000 MCG PO (08:03)
[2021-01-13] MEDS: FERROUS SULFATE 324 MG TABLET PO ×2 (08:03→17:54)
[2021-01-13] MEDS: BUMETANIDE INJ 1 MG/4 ML VIAL IV PUSH (08:03)
[2021-01-13] MEDS: ATORVASTATIN 10 MG TABLET PO (08:03)
[2021-01-13] MEDS: carvediloL 12.5 MG TABLET PO ×2 (08:04→21:04)
[2021-01-13] MEDS: INSULIN ASPART (*BKC) 100 UNITS/ML SUB-Q ×3 (08:07→17:54)
--- NOTE | 2021-01-13 08:49 | PM.PNCARD ---
Progress Note: A&P Assessment and Plan (1) Congestive heart failure: Code(s): I50.9 - Heart failure, unspecified Status: Acute Assessment and Plan: This is predominantly right-sided and diastolic acute on chronic. Continues to have moderate bilateral LE edema. Continue Diuretics monitor renal function closely. Magnesium is low normal. 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 Negative stress test earlier this year as an outpatient in our office. no plans or indication for invasive ischemic assessment at this time. (3) LINDSEY (acute kidney injury): Code(s): N17.9 - Acute kidney failure, unspecified Status: Acute Assessment and Plan: Acute on chronic renal failure. Avoid nephrotoxic agents. Hold losartan. Caution with diuretics. Dr. Crouch assisting. Receiving another dose of metolazone today (4) Anemia of chronic disease: Code(s): D63.8 - Anemia in other chronic diseases classified elsewhere Status: Acute Assessment and Plan: Multifactorial, acute on chronic. No clear clinical evidence for active bleed. H&H dropped overnight despite blood transfusion yesterday. Spoke with hospitalist about plan to c/s GI for poss. scope to identify possible source of bleeding. Xarelto has been placed on hold in the setting of persistent anemia. (5) Atrial fibrillation: Code(s): I48.91 - Unspecified atrial fibrillation Status: Acute Assessment and Plan: Persistent, rate controlled, asymptomatic. May continue carvedilol. Xarelto now on hold. See above. (6) Hypertension associated with diabetes: Code(s): E11.59 - Type 2 diabetes mellitus with other circulatory complications; I15.2 - Hypertension secondary to endocrine disorders Status: Acute Assessment and Plan: BP reasonably controlled on present regimen. (7) Pulmonary hypertension: Code(s): I27.20 - Pulmonary hypertension, unspecified Status: Acute Assessment and Plan: Moderate in severity RVSP 59 mm Hg. Patient claims apnea link performed previously do not see documented. He denies prior known history of KEV. per review records patient was previously utilizing BiPAP 17/03 in October. I would not be surprised if patient has significant KEV complicating management. Subjective Date/time seen: 01/13/21 08:49 Interval history: Cardiology follow up for chronic atrial fibrillation and LE edema. Date of service 01/11/2021: Patient feeling okay today. He is currently receiving a unit of blood. His is in the room and says that his swelling looks improved. No shortness of breath, chest pain, palpitations. Date of service 01/12/2021: He is feeling better today after receiving blood yesterday. He says he got up to the chair yesterday and had no difficulty with shortness of breath but he does have a lot of pain in his lower extremities. He thinks some of this is caused by his swelling but mostly it is joint pain. His Hgb dropped from 9.2 to 7.4 overnight. Date of service 01/13/2021: Feeling better. Still swollen but no chest pain or shortness of breath Review of Systems Review of Systems: All systems reviewed & are unremarkable except as noted in HPI and below Constitutional: Constitutional: Reports as per HPI, Reports no additional constitutional complaints, Denies fatigue and Denies weakness Eyes: Eyes: Reports as per HPI and Reports no additional eye complaints ENT: Reports system reviewed and no additional complaints, except as documented and Reports as per HPI Cardiovascular: Cardiovascular: Reports as per HPI, Reports no additional cardiovascular com
[2021-01-13] MEDS: ACETAMINOPHEN 325 MG TABLET 650 MG PO (09:03)
[2021-01-13] MEDS: POTASSIUM CHLORIDE 20 MEQ TABLET 40 MEQ PO (09:03)
[2021-01-13] MEDS: MAGNESIUM OXIDE 400 MG TABLET PO (09:03)
[2021-01-13 09:07] LABS: Glucose Point of Care 205 mg/dl (65-105)
--- NOTE | 2021-01-13 10:20 | P.PNNP_ITS ---
Progress Note: A&P Assessment and Plan (1) LINDSEY (acute kidney injury): Code(s): N17.9 - Acute kidney failure, unspecified Status: Acute Assessment and Plan: * etiology not clear * He had a normal creatinine in June. * He had acute kidney injury in October which improved to a creatinine of 1.6 then stayed there. * Now has another episode of acute kidney injury which started out at 2.6 and now is 2.3. * renal ultrasound show no issues regarding acute kidney injury. There is a hemorrhagic cyst which needs to be further evaluated. * Urine electrolytes are listed as pending. Will just repeat them since it has been 3 days. * Mildly elevated urine protein at 570 back in October. * Immunofixation shows an abnormal band. * I talked with the patient at length. I think he needs a kidney biopsy. We discussed the risks benefits and alternatives as well as the process and he agrees to proceed. (2) Stage 3b chronic kidney disease: Code(s): N18.32 - Chronic kidney disease, stage 3b Status: Chronic Assessment and Plan: * Technically chronic kidney disease because his GFR has been elevated for more than 3 months but this looks more like a smoldering picture with worsened creatinine over the last 3-6 months. (3) Anemia: Code(s): D64.9 - Anemia, unspecified Status: Acute Assessment and Plan: * long standing history * PRBC transfusion per protocol * due in part to iron and B12 deficiency * Hemoglobin down a bit. Check stool guaiacs. * Getting iron per Dr. Pelletier (4) Hypertension: Code(s): I10 - Essential (primary) hypertension Status: Chronic Assessment and Plan: * Systolic blood pressure doing pretty well right now. * follow trend of hemodynamics (5) Fever: Qualifiers: Fever type: unspecified Qualified Code(s): R50.9 - Fever, unspecified Code(s): R50.9 - Fever, unspecified Status: Acute Assessment and Plan: * related to possible pneumonia(?) * on vancomycin and cefepime. * Cultures negative so far. (6) Bilateral edema of lower extremity: Code(s): R60.0 - Localized edema Status: Acute Assessment and Plan: * Etiology unclear. * Echocardiogram looked okay. * He was on amlodipine which could add to this however this has been discontinued since admission. * No history of liver disease. Bilirubin is been okay. * Venous Dopplers are negative. * Check CT abdomen to rule out retroperitoneal process. * Getting IV albumin chased with IV bumex amd metolazone./ * follow I/Os and exam (7) Diabetes: Code(s): E11.9 - Type 2 diabetes mellitus without complications Status: Chronic Assessment and Plan: * follow accuchecks * glycemic control Subjective Date/time seen: 01/13/21 10:20 Interval history: Mr. Yanez is feeling okay. No chest pain or shortness of breath. Exam Narrative: Exam Narrative: General: WD/WN male in NAD Heart: normal S1 and S2; IRRR; no rub or gallop Lungs: clear to auscultation Abdomen: soft, nontender, nondistended, positive bowel sounds Extremities: 1-2+ edema, left greater than right Skin: No rash Objective Data Vital Signs Vital Signs: Vital Signs - 24 hr 01/12/21 12:00 01/12/21 14:00 01/12/21 16:00 Temperature 36.6 C Pulse Rate 76 76 74 Respiratory Rate 18 Blood Pressure 125/68 Pulse Oximetry 9
--- NOTE | 2021-01-13 10:20 | PM.PNNEP ---
Progress Note: A&P Assessment and Plan (1) LINDSEY (acute kidney injury): Code(s): N17.9 - Acute kidney failure, unspecified Status: Acute Assessment and Plan: etiology not clear He had a normal creatinine in June. He had acute kidney injury in October which improved to a creatinine of 1.6 then stayed there. Now has another episode of acute kidney injury which started out at 2.6 and now is 2.3. renal ultrasound show no issues regarding acute kidney injury. There is a hemorrhagic cyst which needs to be further evaluated. Urine electrolytes are listed as pending. Will just repeat them since it has been 3 days. Mildly elevated urine protein at 570 back in October. Immunofixation shows an abnormal band. I talked with the patient at length. I think he needs a kidney biopsy. We discussed the risks benefits and alternatives as well as the process and he agrees to proceed. (2) Stage 3b chronic kidney disease: Code(s): N18.32 - Chronic kidney disease, stage 3b Status: Chronic Assessment and Plan: Technically chronic kidney disease because his GFR has been elevated for more than 3 months but this looks more like a smoldering picture with worsened creatinine over the last 3-6 months. (3) Anemia: Code(s): D64.9 - Anemia, unspecified Status: Acute Assessment and Plan: long standing history PRBC transfusion per protocol due in part to iron and B12 deficiency Hemoglobin down a bit. Check stool guaiacs. Getting iron per Dr. Pelletier (4) Hypertension: Code(s): I10 - Essential (primary) hypertension Status: Chronic Assessment and Plan: Systolic blood pressure doing pretty well right now. follow trend of hemodynamics (5) Fever: Qualifiers: Fever type: unspecified Qualified Code(s): R50.9 - Fever, unspecified Code(s): R50.9 - Fever, unspecified Status: Acute Assessment and Plan: related to possible pneumonia(?) on vancomycin and cefepime. Cultures negative so far. (6) Bilateral edema of lower extremity: Code(s): R60.0 - Localized edema Status: Acute Assessment and Plan: Etiology unclear. Echocardiogram looked okay. He was on amlodipine which could add to this however this has been discontinued since admission. No history of liver disease. Bilirubin is been okay. Venous Dopplers are negative. Check CT abdomen to rule out retroperitoneal process. Getting IV albumin chased with IV bumex amd metolazone./ follow I/Os and exam (7) Diabetes: Code(s): E11.9 - Type 2 diabetes mellitus without complications Status: Chronic Assessment and Plan: follow accuchecks glycemic control Subjective Date/time seen: 01/13/21 10:20 Interval history: Mr. Yanez is feeling okay. No chest pain or shortness of breath. Exam Narrative: Exam Narrative: General: WD/WN male in NAD Heart: normal S1 and S2; IRRR; no rub or gallop Lungs: clear to auscultation Abdomen: soft, nontender, nondistended, positive bowel sounds Extremities: 1-2+ edema, left greater than right Skin: No rash Objective Data Vital Signs Vital Signs: Vital Signs - 24 hr 01/12/21 12:00 01/12/21 14:00 01/12/21 16:00 Temperature 36.6 C Pulse Rate 76 76 74 Respiratory Rate 18 Blood Pressure 125/68 Pulse Oximetry 99 01/12/21 20:00 01/12/21 21:00 01/13/21 00:00 Temperature 36.9 C 36.9 C Pulse Rate 76 76 78 Respiratory Rate 20 18 Blood Pressure 132/67 119/70 Pulse Oximetry 99 96 01/13/21 04:00 01/13/21 08:00 01/13/21 08:04 Temperature 37.1 C Pulse Rate 78 73 76 Respiratory Rate 20 Blood Pressure 131/70 Pulse Oximetry 97 Intake/Output Intake/Output: Intake & Output 01/10/21 01/11/21 01/12/21 01/13/21 23:59 23:59 23:59 23:59 Intake Total 1410 2033 1915 790 Output Total 550 8784 306 9278 Balance 273 210 2660 910 Meds/Results Medications: Ac
[2021-01-13] MEDS: MAGNESIUM SULF 2 GM/WATER 50ML 2 GM/50 ML BAG IVPB (10:30)
[2021-01-13 11:10] LABS: IFOB Positive Control Positive; Immunochemical Fecal Occult Bl Positive (N)
[2021-01-13 12:31] LABS: Creatinine Urine 49.6 mg/dL; Total Protein Urine Random 14 mg/dL; Ur Ttl Prot Creatinine Ratio 0.28 mg/mg (0-0.20)
[2021-01-13 12:33] LABS: Sodium Urine Random 65 meq/L
[2021-01-13 13:39] LABS: Glucose Point of Care 250 mg/dl (65-105)
--- NOTE | 2021-01-13 13:51 | PM.IMPN ---
Progress Note: A&P Assessment and Plan (1) Symptomatic anemia: Code(s): D64.9 - Anemia, unspecified Status: Acute Assessment and Plan: Regarding the patient's symptomatic anemia he has anemia of chronic disease, iron deficiency anemia and B12 deficiency. The patient's stools were negative for occult blood in the ER. His iron deficiency is likely due to nutritional deficiency decreased iron intake. However, he is on chronic anticoagulation with Xarelto and could certainly have some occult blood loss long-term with no acute occult blood loss. 01/11/21- H&H 6.04/25- 1 unit of packed red blood cells was ordered and going to be given. Recheck H&H was 9.2/30% 01/12/21- H&H decreased to 7.4/23%. Talked to Hematology who believes it could be secondary to CKD vs Iron Deficiency Anemia vs Blood loss anemia from Xarelto. Will HOLD Xarelto at this time and check Stool Occult Blood again to see if having a GI bleed. Cardiology is in agreement to hold Xarelto at this time. 01/13/21- H&H remains stable 7.3/23%. Today, patient did have + Stool Occult, Xarelto is on Hold, starting PPI 40 mg IV BID. Will talk with GI and possibly needing to do scopes for GI bleed causing anemia on top of Iron def, B12 def and Acute on Chronic CKD. If positive Stool Occult will discuss with GI again. Continue IV Venofer x4 (3/4) doses and IM B12 supplementation was given for 3 days, Now, switched to PO 1000 mcg daily. Patient feeling well, not as fatigued as yesterday. Continue monitoring H&H. Transfusion PRN if hemoglobin is less than 7. No acute signs of bleeding at this time. (2) Acute on chronic kidney failure: Code(s): N17.9 - Acute kidney failure, unspecified; N18.9 - Chronic kidney disease, unspecified Status: Chronic Assessment and Plan: Patient has acute on chronic renal insufficiency. Likely due to a combination of ARB and diuretic therapy. Will hold Arb and continue diuretic therapy. Renal US showed A few bilateral renal cysts. No hydronephrosis. Creatinine 2.5. Nephrology continuing with IV Albumin prior to diuretics. Talked to Nephrology who stated the patient has a POSITIVE Abnormal Protein band 1 and is going to do a Kidney Biopsy Friday Morning to further evaluation for Myeloma or MGUS. This could be the reason why the patients creatinine is worse over the last 1 year. Continue diuresis and monitoring renal function, urine output Will repeat BMP in a.m.. Appreciate Nephrology's evaluation. (3) Congestive heart failure: Code(s): I50.9 - Heart failure, unspecified Status: Acute Assessment and Plan: Patient had echocardiogram October 2020 which showed an indeterminate diastolic function, with the patient increased leg swelling it is most likely acute diastolic CHF exacerbation at this time. Patient was started on IV Albumin prior to IV Bumex 1 mg Q8hr and, given PO Metolazole 5 mg daily (Day#2). Continue monitoring diuresis. Appreciate Cardiology and Nephrology input. Patient is asymptomatic with his respiratory symptoms, no orthopnea. Continue monitoring intake and output. Appreciate cardiology's and Nephrology input Continue monitoring patient's symptoms. (4) Fever: Qualifiers: Fever type: unspecified Qualified Code(s): R50.9 - Fever, unspecified Code(s): R50.9 - Fever, unspecified Status: Acute Assessment and Plan: The patient did have a low-grade fever and elevated CRP in the ER with abnormal chest x-ray. Concerning for possible pneumonia. the patient has already received both COVID vaccines but COVID PCR is pending the patient is on isolation. He has been started on empiric antibiotic therapy for Hospital Acquired PNA since he was hospitalized within the last 3 months, IV Cefepime and IV Vancomycin (Day #6). Will continue for 6 days today. Influenza swab negative Blood cultures are negative to date Urine Antigens negative Will repeat C
[2021-01-13 15:07] LABS: Hematocrit 27.1 % (42.0-52.0); Hemoglobin 8.5 g/dL (14.0-18.0)
[2021-01-13 17:50] LABS: Glucose Point of Care 274 mg/dl (65-105)
[2021-01-13] MEDS: CEFEPIME 0.5 GM in DEXTROSE 5% IN WATER 50 ML IVPB (17:53)
[2021-01-13] MEDS: PANTOPRAZOLE SODIUM IV 40 MG VIAL IV PUSH (21:04)
[2021-01-13 21:42] LABS: Glucose Point of Care 296 mg/dl (65-105)
[2021-01-13 23:37] LABS: Hemoglobin 7.5 g/dL (14.0-18.0)
[2021-01-14] VITALS (12 sets, daily range): BP systolic 103–125; BP diastolic 52–83; PULSE 63–75; RESP 16–18; TEMP 35.9–36.9; O2SAT 96–100
[2021-01-14 05:42] LABS: Hematocrit 23.6 % (42.0-52.0); Hemoglobin 7.3 g/dL (14.0-18.0)
[2021-01-14 06:02] LABS: Albumin Level 2.8 g/dL (3.5-5.1); Anion Gap 8 mmol/L (8-16); Blood Urea Nitrogen 95 mg/dL (9-20); Calcium 8.2 mg/dL (8.4-10.2); Carbon Dioxide 21 mmol/L (22-30); Chloride 100 mmol/L (98-107); Estimated CRCL calculation 32 ml/min; Estimated Glomerular Filt Rate 35; Glucose 222 mg/dL (75-110); Phosphorus 3.7 mg/dL (2.5-4.5); Potassium 3.8 mmol/L (3.4-5.0); Sodium 129 mmol/L (137-145)
[2021-01-14] MEDS: INSULIN ASPART (*BKC) 100 UNITS/ML SUB-Q ×3 (07:12→17:39)
[2021-01-14 07:14] LABS: Glucose Point of Care 206 mg/dl (65-105)
--- NOTE | 2021-01-14 08:17 | PM.IMPN ---
Progress Note: A&P Assessment and Plan (1) Symptomatic anemia: Code(s): D64.9 - Anemia, unspecified Status: Acute Assessment and Plan: Regarding the patient's symptomatic anemia he has anemia of chronic disease, iron deficiency anemia and B12 deficiency. The patient's stools were negative for occult blood in the ER. His iron deficiency is likely due to nutritional deficiency decreased iron intake. However, he is on chronic anticoagulation with Xarelto and could certainly have some occult blood loss long-term with no acute occult blood loss. 01/11/21- H&H .04/25- 1 unit of packed red blood cells was ordered and going to be given. Recheck H&H was 9.2/30% 01/12/21- H&H decreased to 7.4/23%. Talked to Hematology who believes it could be secondary to CKD vs Iron Deficiency Anemia vs Blood loss anemia from Xarelto. Will HOLD Xarelto at this time and check Stool Occult Blood again to see if having a GI bleed. Cardiology is in agreement to hold Xarelto at this time. 01/13/21- H&H remains stable 7.3/23%. Today, patient did have + Stool Occult, Xarelto is on Hold, starting PPI 40 mg IV BID. 01/14/21- H&H remains stable 7.3/23%. Stable. Xarelto on hold, continue PPI. GI will be monitoring his H&H and may consider scope Friday if felt further work up is needed. Continue IV Venofer x4 (4/4) doses and IM B12 supplementation was given for 3 days, Now, switched to PO 1000 mcg daily. Patient feeling well. Continue monitoring H&H. Transfusion PRN if hemoglobin is less than 7. No acute signs of bleeding at this time. (2) Acute on chronic kidney failure: Code(s): N17.9 - Acute kidney failure, unspecified; N18.9 - Chronic kidney disease, unspecified Status: Chronic Assessment and Plan: Patient has acute on chronic renal insufficiency. Likely due to a combination of ARB and diuretic therapy. Will hold Arb and continue diuretic therapy. Renal US showed A few bilateral renal cysts. No hydronephrosis. Creatinine 2.2. Improved slightly Talked to Nephrology who stated the patient has a POSITIVE Abnormal Protein band 1 and is going to do a Kidney Biopsy Friday Morning to further evaluation for Myeloma or MGUS. This could be the reason why the patients creatinine is worse over the last 1 year. Continue diuresis and monitoring renal function, urine output Will repeat BMP in a.m.. Appreciate Nephrology's evaluation. (3) Congestive heart failure: Code(s): I50.9 - Heart failure, unspecified Status: Acute Assessment and Plan: Patient had echocardiogram October 2020 which showed an indeterminate diastolic function, with the patient increased leg swelling it is most likely acute diastolic CHF exacerbation at this time. Patient was started on IV Lasix, then IV Albumin prior to IV Bumex 1 mg Q8hr and, given PO Metolazole 5 mg daily (Day#2), without much improvement on diuresis. Appreciate Cardiology and Nephrology input. Patient is asymptomatic with his respiratory symptoms, no orthopnea, continued leg swelling. Continue monitoring intake and output. Continue monitoring patient's symptoms. (4) Fever: Qualifiers: Fever type: unspecified Qualified Code(s): R50.9 - Fever, unspecified Code(s): R50.9 - Fever, unspecified Status: Acute Assessment and Plan: The patient did have a low-grade fever and elevated CRP in the ER with abnormal chest x-ray. Concerning for possible pneumonia. the patient has already received both COVID vaccines but COVID PCR is pending the patient is on isolation. He has been started on empiric antibiotic therapy for Hospital Acquired PNA since he was hospitalized within the last 3 months, IV Cefepime and IV Vancomycin (Day #7). Will discontinue today for treatment being completed. Influenza swab negative Blood cultures are negative to date Urine Antigens negative Will repeat CBC a.m.. Continue antibiotics at this time (5) Elevated troponi
--- NOTE | 2021-01-14 08:45 | PM.PNCARD ---
Progress Note: A&P Assessment and Plan (1) Congestive heart failure: Code(s): I50.9 - Heart failure, unspecified Status: Acute Assessment and Plan: This is predominantly right-sided and diastolic acute on chronic. Continues to have moderate bilateral LE edema. 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 Negative stress test earlier this year as an outpatient in our office. no plans or indication for invasive ischemic assessment at this time. (3) LINDSEY (acute kidney injury): Code(s): N17.9 - Acute kidney failure, unspecified Status: Acute Assessment and Plan: Acute on chronic renal failure. Avoid nephrotoxic agents. Hold losartan. Caution with diuretics. Dr. Crouch assisting. Renal biopsy planned for tomorrow (4) Anemia of chronic disease: Code(s): D63.8 - Anemia in other chronic diseases classified elsewhere Status: Acute Assessment and Plan: Multifactorial, acute on chronic. No clear clinical evidence for active bleed. H&H dropped overnight despite blood transfusion yesterday. Spoke with hospitalist about plan to c/s GI for poss. scope to identify possible source of bleeding. Xarelto has been placed on hold in the setting of persistent anemia and pending renal biopsy. He is guaiac positive and endoscopy is indicated (5) Atrial fibrillation: Code(s): I48.91 - Unspecified atrial fibrillation Status: Acute Assessment and Plan: Persistent, rate controlled, asymptomatic. May continue carvedilol. Xarelto now on hold. See above. (6) Hypertension associated with diabetes: Code(s): E11.59 - Type 2 diabetes mellitus with other circulatory complications; I15.2 - Hypertension secondary to endocrine disorders Status: Acute Assessment and Plan: BP reasonably controlled on present regimen. (7) Pulmonary hypertension: Code(s): I27.20 - Pulmonary hypertension, unspecified Status: Acute Assessment and Plan: Moderate in severity RVSP 59 mm Hg. Patient claims apnea link performed previously do not see documented. He denies prior known history of KEV. per review records patient was previously utilizing BiPAP 17/03 in October. I would not be surprised if patient has significant KEV complicating management. Subjective Date/time seen: 01/14/21 08:45 Interval history: Cardiology follow up for chronic atrial fibrillation and LE edema. Date of service 01/11/2021: Patient feeling okay today. He is currently receiving a unit of blood. His is in the room and says that his swelling looks improved. No shortness of breath, chest pain, palpitations. Date of service 01/12/2021: He is feeling better today after receiving blood yesterday. He says he got up to the chair yesterday and had no difficulty with shortness of breath but he does have a lot of pain in his lower extremities. He thinks some of this is caused by his swelling but mostly it is joint pain. His Hgb dropped from 9.2 to 7.4 overnight. Date of service 01/13/2021: Feeling better. Still swollen but no chest pain or shortness of breath Date of service 01/14/2021: Continues to feel a bit better. He is scheduled for renal biopsy tomorrow. No chest pain, shortness breath. Swelling is better. Review of Systems Review of Systems: All systems reviewed & are unremarkable except as noted in HPI and below Constitutional: Constitutional: Reports as per HPI, Reports no additional constitutional complaints, Denies fatigue and Denies weakness Eyes: Eyes: Reports as per HPI and Reports no additional eye complaints ENT: Reports system reviewed and no add
[2021-01-14] MEDS: FERROUS SULFATE 324 MG TABLET PO ×2 (08:53→17:39)
[2021-01-14] MEDS: ATORVASTATIN 10 MG TABLET PO (08:53)
[2021-01-14] MEDS: CYANOCOBALAMIN 1,000 MCG TABLET 1000 MCG PO (08:53)
[2021-01-14] MEDS: PANTOPRAZOLE 40 MG TABLET PO ×2 (08:54→20:40)
[2021-01-14] MEDS: polyethylene glycoL 3350 17 GM POWD.PACK PO (08:54)
[2021-01-14] MEDS: carvediloL 12.5 MG TABLET PO ×2 (08:54→20:39)
[2021-01-14] MEDS: MAGNESIUM OXIDE 400 MG TABLET PO (08:54)
[2021-01-14] MEDS: DOCUSATE SODIUM 100 MG CAPSULE PO ×2 (08:57→20:40)
[2021-01-14] MEDS: BUMETANIDE INJ 1 MG/4 ML VIAL IV PUSH (09:02)
--- NOTE | 2021-01-14 10:14 | WPDGIPROGNO ---
Progress Note: A&P Assessment and Plan (1) Anemia of chronic disease: Code(s): D63.8 - Anemia in other chronic diseases classified elsewhere Status: Acute Assessment and Plan: Patient has anemia of chronic disease. His peers to be on the basis of chronic kidney disease. I understand kidney biopsy will be performed tomorrow. (2) Occult blood in stools: Code(s): R19.5 - Other fecal abnormalities Status: Acute Assessment and Plan: Patient now found to have occult blood in stool. This is complicated by recent Xarelto use because of atrial fibrillation. Because of significant anemia cannot exclude some component of GI blood loss. Will plan GI endoscopy including colonoscopy an EGD but this will be deferred till Friday or Friday as patient is anticipated to have kidney biopsy on Friday. (3) Atrial fibrillation: Code(s): I48.91 - Unspecified atrial fibrillation Status: Acute Assessment and Plan: Patient has been on Xarelto because of atrial fibrillation this will now need to be held because of occult blood in stool. Anticipate endoscopy in several days as described above. (4) Diabetes: Code(s): E11.9 - Type 2 diabetes mellitus without complications Status: Chronic (5) Congestive heart failure: Code(s): I50.9 - Heart failure, unspecified Status: Acute Subjective Date/time seen: 01/14/21 10:14 I am asked to see this patient in follow-up in the absence of Dr. Floyd. Patient known to me from colonoscopy I performed on and 10 years ago. Patient has chronic anemia felt to be on the basis of chronic kidney disease. Now on Xarelto because of atrial fibrillation. He has persistent chronic kidney disease and kidney biopsy is anticipated tomorrow. Review of Systems Review of Systems: All systems reviewed & are unremarkable except as noted in HPI and below Exam Narrative: Exam Narrative: Physical exam reveals patient be alert comfortable at rest he is anicteric. Vital signs are stable. Lungs are clear. Heart without murmur. Abdomen soft nontender with no organomegaly. Objective Data Vital Signs Vital Signs: Vital Signs - 24 hr 01/13/21 12:00 01/13/21 14:00 01/13/21 16:00 Temperature 97.5 F L Pulse Rate 75 72 74 Respiratory Rate 16 Blood Pressure 108/48 L Pulse Oximetry 99 01/13/21 18:00 01/13/21 20:00 01/13/21 21:04 Temperature 96.7 F L 98.5 F Pulse Rate 69 69 82 Respiratory Rate 18 20 Blood Pressure 121/69 119/64 Pulse Oximetry 98 99 01/14/21 00:00 01/14/21 04:00 01/14/21 08:00 Temperature 98.1 F 98.4 F Pulse Rate 71 71 75 Respiratory Rate 18 18 Blood Pressure 122/65 121/66 Pulse Oximetry 100 100 01/14/21 08:54 Temperature Pulse Rate 71 Respiratory Rate Blood Pressure Pulse Oximetry Intake/Output Intake/Output: Intake & Output 01/11/21 01/12/21 01/13/21 01/14/21 23:59 23:59 23:59 23:59 Intake Total 2033 1915 2785 500 Output Total 9776 347 2641 1050 Balance 758 1165 185 -550 Meds/Results Medications: Active Medications Generic Name Dose Route Start Last Admin Trade Name Freq PRN Reason Stop Dose Admin Acetaminophen 650 mg 01/11/21 09:20 01/13/21 09:03 Acetaminophen 325 Mg Tablet PO 650 mg Q4H PRN Administration Mild Pain (1-3) or Fever Albuterol 2 puff 01/08/21 23:51 Albuterol Sulfate (*Sp) Aerosol 1 Puff INHALATION Q6HRT PRN Shortness Of Breath Atorvastatin Calcium 10 mg 01/09/21 09:00 01/14/21 08:53 Atorvastatin 10 Mg Tablet PO 10 mg DAILY CESAR Administration Bisacodyl 10 mg 01/12/21 12:45 Bisacodyl 10 Mg Suppository RECTAL Q24H PRN Constipation Carvedilol 12.5 mg 01/10/21 21:00 01/14/21 08:54 Carvedilol 12.5 Mg Tablet PO 12.5 mg Q12HR CESAR Administration Cyanocobalamin 1,000 mcg 01/12/21 09:00 01/14/21 08:53 Cyanocobalamin 1,000 Mcg Tablet PO 1,000 mcg QAM CESAR Administration
--- NOTE | 2021-01-14 10:22 | P.PNNP_ITS ---
Progress Note: A&P Assessment and Plan (1) LINDESY (acute kidney injury): Code(s): N17.9 - Acute kidney failure, unspecified Status: Acute Assessment and Plan: * etiology not clear * He had a normal creatinine in June. this has gradually worsened since the to the current level of 2.3. * renal ultrasound show no issues regarding acute kidney injury. There is a hemorrhagic cyst which needs to be further evaluated. * Urine electrolytes are Non pre renal. * Mild Proteinuria. * Immunofixation shows an abnormal band. * I talked with the patient at length. I think he needs a kidney biopsy. We discussed the risks benefits and alternatives as well as the process . We talked about potential bleeding and the need for possible blood transfusion. His hemoglobin is already low and he is getting a transfusion today so his risk of transfusion might be Juan Daniel with a small amount of bleeding. We also talked about the possibility that someone may have to go and stop the bleeding or even that he would lose the kidney. This is very rare. He agrees to proceed. (2) Stage 3b chronic kidney disease: Code(s): N18.32 - Chronic kidney disease, stage 3b Status: Chronic Assessment and Plan: * Technically chronic kidney disease because his GFR has been elevated for more than 3 months but this looks more like a smoldering picture with worsened creatinine over the last 3-6 months. (3) Anemia: Code(s): D64.9 - Anemia, unspecified Status: Acute Assessment and Plan: * long standing history * PRBC transfusion per protocol * due in part to iron and B12 deficiency * Hemoglobin down a bit. Check stool guaiacs. * Getting iron per Dr. Pelletier * Getting a blood transfusion now. (4) Hypertension: Code(s): I10 - Essential (primary) hypertension Status: Chronic Assessment and Plan: * Systolic blood pressure doing pretty well right now. * follow trend of hemodynamics (5) Fever: Qualifiers: Fever type: unspecified Qualified Code(s): R50.9 - Fever, unspecified Code(s): R50.9 - Fever, unspecified Status: Acute Assessment and Plan: * related to possible pneumonia(?) * on vancomycin and cefepime. * Cultures negative so far. (6) Bilateral edema of lower extremity: Code(s): R60.0 - Localized edema Status: Acute Assessment and Plan: * Etiology unclear. * Echocardiogram looked okay. * He was on amlodipine which could add to this however this has been discon tinued since admission. * No history of liver disease. Bilirubin is been okay. * Venous Dopplers are negative. * CT abdomen shows no retroperitoneal process. * Getting IV albumin chased with IV bumex amd metolazone. * follow I/Os and exam (7) Diabetes: Code(s): E11.9 - Type 2 diabetes mellitus without complications Status: Chronic Assessment and Plan: * follow accuchecks * glycemic control Subjective Date/time seen: 01/14/21 10:22 Interval history: Mr. Yanez is feeling okay. He slept well. No chest pain or shortness of breath. Exam Narrative: Exam Narrative: General: WD/WN male in NAD Heart: normal S1 and S2; IRRR; no rub or gallop Lungs: clear Abdomen: soft, nontender, nondistended, positive bowel sounds Extremities: 1-2+ edema, left greater than right Skin: No rash Or subcu nodules Objective Data Vital Signs Vital Signs: Vital Signs - 24 hr
--- NOTE | 2021-01-14 10:22 | PM.PNNEP ---
Progress Note: A&P Assessment and Plan (1) LINDSEY (acute kidney injury): Code(s): N17.9 - Acute kidney failure, unspecified Status: Acute Assessment and Plan: etiology not clear He had a normal creatinine in June. this has gradually worsened since the to the current level of 2.3. renal ultrasound show no issues regarding acute kidney injury. There is a hemorrhagic cyst which needs to be further evaluated. Urine electrolytes are Non pre renal. Mild Proteinuria. Immunofixation shows an abnormal band. I talked with the patient at length. I think he needs a kidney biopsy. We discussed the risks benefits and alternatives as well as the process . We talked about potential bleeding and the need for possible blood transfusion. His hemoglobin is already low and he is getting a transfusion today so his risk of transfusion might be Juan Daniel with a small amount of bleeding. We also talked about the possibility that someone may have to go and stop the bleeding or even that he would lose the kidney. This is very rare. He agrees to proceed. (2) Stage 3b chronic kidney disease: Code(s): N18.32 - Chronic kidney disease, stage 3b Status: Chronic Assessment and Plan: Technically chronic kidney disease because his GFR has been elevated for more than 3 months but this looks more like a smoldering picture with worsened creatinine over the last 3-6 months. (3) Anemia: Code(s): D64.9 - Anemia, unspecified Status: Acute Assessment and Plan: long standing history PRBC transfusion per protocol due in part to iron and B12 deficiency Hemoglobin down a bit. Check stool guaiacs. Getting iron per Dr. Pelletier Getting a blood transfusion now. (4) Hypertension: Code(s): I10 - Essential (primary) hypertension Status: Chronic Assessment and Plan: Systolic blood pressure doing pretty well right now. follow trend of hemodynamics (5) Fever: Qualifiers: Fever type: unspecified Qualified Code(s): R50.9 - Fever, unspecified Code(s): R50.9 - Fever, unspecified Status: Acute Assessment and Plan: related to possible pneumonia(?) on vancomycin and cefepime. Cultures negative so far. (6) Bilateral edema of lower extremity: Code(s): R60.0 - Localized edema Status: Acute Assessment and Plan: Etiology unclear. Echocardiogram looked okay. He was on amlodipine which could add to this however this has been discontinued since admission. No history of liver disease. Bilirubin is been okay. Venous Dopplers are negative. CT abdomen shows no retroperitoneal process. Getting IV albumin chased with IV bumex amd metolazone. follow I/Os and exam (7) Diabetes: Code(s): E11.9 - Type 2 diabetes mellitus without complications Status: Chronic Assessment and Plan: follow accuchecks glycemic control Subjective Date/time seen: 01/14/21 10:22 Interval history: Mr. Yanez is feeling okay. He slept well. No chest pain or shortness of breath. Exam Narrative: Exam Narrative: General: WD/WN male in NAD Heart: normal S1 and S2; IRRR; no rub or gallop Lungs: clear Abdomen: soft, nontender, nondistended, positive bowel sounds Extremities: 1-2+ edema, left greater than right Skin: No rash Or subcu nodules Objective Data Vital Signs Vital Signs: Vital Signs - 24 hr 01/13/21 12:00 01/13/21 14:00 01/13/21 16:00 Temperature 36.4 C L Pulse Rate 75 72 74 Respiratory Rate 16 Blood Pressure 108/48 L Pulse Oximetry 99 01/13/21 18:00 01/13/21 20:00 01/13/21 21:04 Temperature 35.9 C L 36.9 C Pulse Rate 69 69 82 Respiratory Rate 18 20 Blood Pressure 121/69 119/64 Pulse Oximetry 98 99 01/14/21 00:00 01/14/21 04:00 01/14/21 08:00 Temperature 36.7 C 36.9 C Pulse Rate 71 71 75 Respiratory Rate 18 18 Blood Pressure 122/65 121/66 Pulse Oximetry 100 1
[2021-01-14] MEDS: ACETAMINOPHEN 325 MG TABLET 650 MG PO (12:00)
[2021-01-14 12:42] LABS: Glucose Point of Care 217 mg/dl (65-105)
[2021-01-14 15:06] LABS: Hematocrit 24.8 % (42.0-52.0); Hemoglobin 7.7 g/dL (14.0-18.0)
[2021-01-14 17:38] LABS: Glucose Point of Care 229 mg/dl (65-105)
[2021-01-14] MEDS: CEFEPIME 0.5 GM in DEXTROSE 5% IN WATER 50 ML IVPB (17:39)
[2021-01-14 20:32] LABS: Vancomycin Trough 18.5 ug/mL (10.0-20.0)
[2021-01-14 21:00] LABS: Glucose Point of Care 280 mg/dl (65-105)
[2021-01-14 23:36] LABS: Hemoglobin 7.5 g/dL (14.0-18.0)
[2021-01-15] VITALS (13 sets, daily range): BP systolic 114–137; BP diastolic 50–76; PULSE 64–82; RESP 16–18; TEMP 36.2–36.8; O2SAT 96–100
[2021-01-15 05:41] LABS: Hemoglobin 7.4 g/dL (14.0-18.0); Mean Corpuscular HGB Conc 32.2 g/dl (32-36); Mean Corpuscular Hemoglobin 26.7 pg (26-34); Mean Platelet Volume 9.9 fl (7.4-10.4); Platelet Count Result 265 k/mm3 (150-375); Red Blood Count 2.77 M/mm3 (4.6-6.20); Red Cell Distribution Width 17.4 % (11.5-14.5); White Blood Count 6.3 K/mm3 (4.5-10.0)
[2021-01-15 06:06] LABS: Albumin Level 2.8 g/dL (3.5-5.1); Anion Gap 11 mmol/L (8-16); Blood Urea Nitrogen 100 mg/dL (9-20); Calcium 8.3 mg/dL (8.4-10.2); Carbon Dioxide 24 mmol/L (22-30); Chloride 99 mmol/L (98-107); Estimated CRCL calculation 28 ml/min; Estimated Glomerular Filt Rate 30; Glucose 249 mg/dL (75-110); Phosphorus 3.7 mg/dL (2.5-4.5); Potassium 3.4 mmol/L (3.4-5.0); Sodium 134 mmol/L (137-145)
--- NOTE | 2021-01-15 07:23 | P.PNNP_ITS ---
Progress Note: A&P Assessment and Plan (1) LINDSEY (acute kidney injury): Code(s): N17.9 - Acute kidney failure, unspecified Status: Acute Assessment and Plan: * etiology under investigation * He had a normal creatinine in June. this has gradually worsened since the to the current level of 2.3. * renal ultrasound show no issues regarding acute kidney injury. There is a hemorrhagic cyst which needs to be further evaluated. * Urine electrolytes are Non pre renal. * Mild Proteinuria. * Immunofixation shows an abnormal band. * biopsy today (2) Stage 3b chronic kidney disease: Code(s): N18.32 - Chronic kidney disease, stage 3b Status: Chronic Assessment and Plan: * Technically chronic kidney disease because his GFR has been elevated for more than 3 months but this looks more like a smoldering picture with worsened creatinine over the last 3-6 months. (3) Anemia: Code(s): D64.9 - Anemia, unspecified Status: Acute Assessment and Plan: * long standing history * PRBC transfusion per protocol * due in part to iron and B12 deficiency * Hemoglobin down a bit. Check stool guaiacs. * Getting iron per Dr. Pelletier (4) Hypertension: Code(s): I10 - Essential (primary) hypertension Status: Chronic Assessment and Plan: * Systolic blood pressure doing pretty well right now. * follow trend of hemodynamics (5) Fever: Qualifiers: Fever type: unspecified Qualified Code(s): R50.9 - Fever, unspecified Code(s): R50.9 - Fever, unspecified Status: Acute Assessment and Plan: * related to possible pneumonia(?) * on vancomycin and cefepime. * Cultures negative so far. * no fever. wbc okay (6) Bilateral edema of lower extremity: Code(s): R60.0 - Localized edema Status: Acute Assessment and Plan: * Etiology unclear. * Echocardiogram looked okay. * off [id number] * No history of liver disease. Bilirubin is been okay. * Venous Dopplers are negative. * CT abdomen shows no retroperitoneal process. * this looks better. (7) Diabetes: Code(s): E11.9 - Type 2 diabetes mellitus without complications Status: Chronic Assessment and Plan: * follow accuchecks * glycemic control Subjective Date/time seen: 01/15/21 07:23 Interval history: Mr. Yanez is feeling okay. to get biopsy today Exam Narrative: Exam Narrative: General: WD/WN male in NAD Heart: normal S1 and S2; IRRR; no rub or gallop Lungs: clear bilaterally Abdomen: soft, nontender, nondistended, positive bowel sounds Extremities: 1-2+ edema, left greater than right Skin: No rash Or subcu nodules Objective Data Vital Signs Vital Signs: Vital Signs - 24 hr 01/14/21 08:00 01/14/21 08:54 01/14/21 10:00 Temperature 35.9 C L Pulse Rate 75 71 63 Respiratory Rate 16 Blood Pressure 111/60 Pulse Oximetry 99 01/14/21 12:00 01/14/21 14:00 01/14/21 16:00 Temperature 35.9 C L Pulse Rate 75 70 70 Respiratory Rate 18 Blood Pressure 112/83 Pulse Oximetry 99 01/14/21 18:00 01/14/21 20:00 01/14/21 20:39 Temperature 36.7 C Pulse Rate 73 68 71 Respiratory Rate 18 Blood Pressure 125/64 Pulse Oximetry 99
--- NOTE | 2021-01-15 07:23 | PM.PNNEP ---
Progress Note: A&P Assessment and Plan (1) LINDSEY (acute kidney injury): Code(s): N17.9 - Acute kidney failure, unspecified Status: Acute Assessment and Plan: etiology under investigation He had a normal creatinine in June. this has gradually worsened since the to the current level of 2.3. renal ultrasound show no issues regarding acute kidney injury. There is a hemorrhagic cyst which needs to be further evaluated. Urine electrolytes are Non pre renal. Mild Proteinuria. Immunofixation shows an abnormal band. biopsy today (2) Stage 3b chronic kidney disease: Code(s): N18.32 - Chronic kidney disease, stage 3b Status: Chronic Assessment and Plan: Technically chronic kidney disease because his GFR has been elevated for more than 3 months but this looks more like a smoldering picture with worsened creatinine over the last 3-6 months. (3) Anemia: Code(s): D64.9 - Anemia, unspecified Status: Acute Assessment and Plan: long standing history PRBC transfusion per protocol due in part to iron and B12 deficiency Hemoglobin down a bit. Check stool guaiacs. Getting iron per Dr. Pelletier (4) Hypertension: Code(s): I10 - Essential (primary) hypertension Status: Chronic Assessment and Plan: Systolic blood pressure doing pretty well right now. follow trend of hemodynamics (5) Fever: Qualifiers: Fever type: unspecified Qualified Code(s): R50.9 - Fever, unspecified Code(s): R50.9 - Fever, unspecified Status: Acute Assessment and Plan: related to possible pneumonia(?) on vancomycin and cefepime. Cultures negative so far. no fever. wbc okay (6) Bilateral edema of lower extremity: Code(s): R60.0 - Localized edema Status: Acute Assessment and Plan: Etiology unclear. Echocardiogram looked okay. off [id number] No history of liver disease. Bilirubin is been okay. Venous Dopplers are negative. CT abdomen shows no retroperitoneal process. this looks better. (7) Diabetes: Code(s): E11.9 - Type 2 diabetes mellitus without complications Status: Chronic Assessment and Plan: follow accuchecks glycemic control Subjective Date/time seen: 01/15/21 07:23 Interval history: Mr. Yanez is feeling okay. to get biopsy today Exam Narrative: Exam Narrative: General: WD/WN male in NAD Heart: normal S1 and S2; IRRR; no rub or gallop Lungs: clear bilaterally Abdomen: soft, nontender, nondistended, positive bowel sounds Extremities: 1-2+ edema, left greater than right Skin: No rash Or subcu nodules Objective Data Vital Signs Vital Signs: Vital Signs - 24 hr 01/14/21 08:00 01/14/21 08:54 01/14/21 10:00 Temperature 35.9 C L Pulse Rate 75 71 63 Respiratory Rate 16 Blood Pressure 111/60 Pulse Oximetry 99 01/14/21 12:00 01/14/21 14:00 01/14/21 16:00 Temperature 35.9 C L Pulse Rate 75 70 70 Respiratory Rate 18 Blood Pressure 112/83 Pulse Oximetry 99 01/14/21 18:00 01/14/21 20:00 01/14/21 20:39 Temperature 36.7 C Pulse Rate 73 68 71 Respiratory Rate 18 Blood Pressure 125/64 Pulse Oximetry 99 01/14/21 22:00 01/15/21 00:00 01/15/21 04:00 Temperature 36.2 C L 36.6 C Pulse Rate 71 69 70 Respiratory Rate 18 18 Blood Pressure 103/52 L 114/50 L Pulse Oximetry 96 96 01/15/21 05:02 Temperature 36.6 C Pulse Rate 75 Respiratory Rate 16 Blood Pressure 125/71 Pulse Oximetry 96 Intake/Output Intake/Output: Intake & Output 01/12/21 01/13/21 01/14/21 01/15/21 23:59 23:59 23:59 23:59 Intake Total 1915 2785 1685 50 Output Total 750 2600 1150 300 Balance 1165 185 535 -250 Meds/Results Medications: Active Medications Generic Name Dose Route Start Last Admin Trade Name Alexanderq PRN Reason Stop Dose Admin Acetaminophen 650 mg 01/11/21 09:20 01/14/21 12:00 Acetaminophen 325 Mg Tablet
[2021-01-15 08:06] LABS: INR 1.3; Prothrombin Time 16.7 Seconds (11.1-14.7)
[2021-01-15 08:07] LABS: Partial Thromboplastin Time 37.2 SECONDS (22.3-36.8)
[2021-01-15] MEDS: INSULIN ASPART (*BKC) 100 UNITS/ML SUB-Q (08:23)
[2021-01-15 08:24] LABS: Glucose Point of Care 250 mg/dl (65-105)
--- NOTE | 2021-01-15 08:57 | PC.NURSE ---
pt NPO for kidney biopsy, a.m meds held until after procedure
--- NOTE | 2021-01-15 09:15 | PM.PNCARD ---
Progress Note: A&P Assessment and Plan (1) Congestive heart failure: Code(s): I50.9 - Heart failure, unspecified Status: Acute Assessment and Plan: This is predominantly right-sided and diastolic acute on chronic. Continues to have moderate bilateral LE edema. Will give 1mg IV Bumex x1 today. Creatine stable. Continue to monitor daily BMP. (2) Elevated troponin: Code(s): R77.8 - Other specified abnormalities of plasma proteins Status: Acute Assessment and Plan: Flat, chronic, without associated ischemic changes on EKG, ischemic symptoms secondary to chronic renal failure consistent with a type 2 infarct not acute coronary syndrome. Negative stress test earlier this year as an outpatient in our office. no plans or indication for invasive ischemic assessment at this time. (3) LINDSEY (acute kidney injury): Code(s): N17.9 - Acute kidney failure, unspecified Status: Acute Assessment and Plan: Acute on chronic renal failure. Avoid nephrotoxic agents. Hold losartan. Caution with diuretics. Dr. Crouch assisting. Renal biopsy today. (4) Anemia of chronic disease: Code(s): D63.8 - Anemia in other chronic diseases classified elsewhere Status: Acute Assessment and Plan: Multifactorial, acute on chronic. No clear clinical evidence for active bleed. H&H dropped overnight despite blood transfusion yesterday. Spoke with hospitalist about plan to c/s GI for poss. scope to identify possible source of bleeding. Xarelto has been placed on hold in the setting of persistent anemia and pending renal biopsy. He is guaiac positive and endoscopy is indicated - plan for tomorrow or Friday (5) Atrial fibrillation: Code(s): I48.91 - Unspecified atrial fibrillation Status: Acute Assessment and Plan: Persistent, rate controlled, asymptomatic. May continue carvedilol. Xarelto now on hold. See above. (6) Hypertension associated with diabetes: Code(s): E11.59 - Type 2 diabetes mellitus with other circulatory complications; I15.2 - Hypertension secondary to endocrine disorders Status: Acute Assessment and Plan: BP reasonably controlled on present regimen. (7) Pulmonary hypertension: Code(s): I27.20 - Pulmonary hypertension, unspecified Status: Acute Assessment and Plan: Moderate in severity RVSP 59 mm Hg. Patient claims apnea link performed previously do not see documented. He denies prior known history of KEV. per review records patient was previously utilizing BiPAP 17/03 in October. I would not be surprised if patient has significant KEV complicating management. Subjective Date/time seen: 01/15/21 09:15 Interval history: Cardiology follow up for chronic atrial fibrillation and LE edema. Date of service 01/11/2021: Patient feeling okay today. He is currently receiving a unit of blood. His is in the room and says that his swelling looks improved. No shortness of breath, chest pain, palpitations. Date of service 01/12/2021: He is feeling better today after receiving blood yesterday. He says he got up to the chair yesterday and had no difficulty with shortness of breath but he does have a lot of pain in his lower extremities. He thinks some of this is caused by his swelling but mostly it is joint pain. His Hgb dropped from 9.2 to 7.4 overnight. Date of service 01/13/2021: Feeling better. Still swollen but no chest pain or shortness of breath Date of service 01/14/2021: Continues to feel a bit better. He is scheduled for renal biopsy tomorrow. No chest pain, shortness breath. Swelling is better. Date of service 01/15/2021: He feels well today. Undergoing renal biopsy today. Plans for EGD either tomorrow or Friday per GI. Denies shortness of breath, palpitations, or chest pain. Review of Systems Review of Systems: All systems reviewed & are unremarkable except as noted in HPI and belo
--- NOTE | 2021-01-15 09:42 | PM.IMPN ---
Progress Note: A&P Assessment and Plan (1) Symptomatic anemia: Code(s): D64.9 - Anemia, unspecified Status: Acute Assessment and Plan: Regarding the patient's symptomatic anemia he has anemia of chronic disease, iron deficiency anemia and B12 deficiency. The patient's stools were negative for occult blood in the ER. His iron deficiency is likely due to nutritional deficiency decreased iron intake. However, he is on chronic anticoagulation with Xarelto and could certainly have some occult blood loss long-term with no acute occult blood loss. 01/11/21- H&H .04/25- 1 unit of packed red blood cells was ordered and going to be given. Recheck H&H was 9.2/30% 01/12/21- H&H decreased to 7.4/23%. Talked to Hematology who believes it could be secondary to CKD vs Iron Deficiency Anemia vs Blood loss anemia from Xarelto. Will HOLD Xarelto at this time and check Stool Occult Blood again to see if having a GI bleed. Cardiology is in agreement to hold Xarelto at this time. 01/13/21- H&H remains stable 7.3/23%. Today, patient did have + Stool Occult, Xarelto is on Hold, starting PPI 40 mg IV BID. 01/14/21- H&H remains stable 7.3/23%. Stable. Xarelto on hold, continue PPI. GI will be monitoring his H&H and may consider scope Friday if felt further work up is needed. 01/15/21- H&H remains stable 7.4/23%. Stable. Xarelto on hold, continue PPI. GI has plans for EGD and Colonoscopy tomorrow to evaluate for any GI causes to anemia. Continue IV Venofer x4 (11/05) doses and discharge on PO Ferrous Sulfate 324 mg BID and IM B12 supplementation (10/04) and will discharge on Cyanocobalamin PO 1000 mcg daily. Patient feeling well. Continue monitoring H&H. Transfusion PRN if hemoglobin is less than 7. No acute signs of bleeding at this time. (2) Acute on chronic kidney failure: Code(s): N17.9 - Acute kidney failure, unspecified; N18.9 - Chronic kidney disease, unspecified Status: Chronic Assessment and Plan: Patient has acute on chronic renal insufficiency. Likely due to a combination of ARB and diuretic therapy. Will hold Arb and continue diuretic therapy. Renal US showed A few bilateral renal cysts. No hydronephrosis. Creatinine 2.5. Stable from arrival Nephrology is getting a kidney biopsy today since he has a POSITIVE Abnormal Protein band 1 to further evaluation for Myeloma or MGUS. This could be the reason why the patients creatinine is worse over the last 1 year. Conitoring renal function, urine output, will repeat BMP in a.m.. Appreciate Nephrology's evaluation. (3) Congestive heart failure: Code(s): I50.9 - Heart failure, unspecified Status: Acute Assessment and Plan: Patient had echocardiogram October 2020 which showed an indeterminate diastolic function, with the patient increased leg swelling it is most likely acute diastolic CHF exacerbation at this time. Patient was started on IV Lasix, then IV Albumin prior to IV Bumex 1 mg Q8hr and, given PO Metolazole 5 mg daily (10/04), without much improvement on diuresis. He did get a dose of IV Bumex 1mg 01/14 and this morning 01/15. Continue diuresis with PO Lasix 40 mg BID per Nephrology. Patient is asymptomatic with his respiratory symptoms, no orthopnea, continued leg swelling. Continue monitoring intake and output. Continue monitoring patient's symptoms. (4) Fever: Qualifiers: Fever type: unspecified Qualified Code(s): R50.9 - Fever, unspecified Code(s): R50.9 - Fever, unspecified Status: Acute Assessment and Plan: The patient did have a low-grade fever and elevated CRP in the ER with abnormal chest x-ray. Concerning for possible pneumonia. the patient has already received both COVID vaccines but COVID PCR is pending the patient is on isolation. He has been started on empiric antibiotic therapy for Hospital Acquired PNA since he was hospitalized within the last 3 months, IV Cefepime and IV Vancomycin (Day #7).
[2021-01-15] MEDS: BUMETANIDE INJ 1 MG/4 ML VIAL IV PUSH (10:19)
--- NOTE | 2021-01-15 10:56 | WPDGIPROGNO ---
Progress Note: A&P Assessment and Plan (1) Occult blood in stools: Code(s): R19.5 - Other fecal abnormalities Status: Acute Assessment and Plan: patient with occult blood in stool. Given his rather significant anemia plan is to proceed with colonoscopy an EGD tomorrow. Will defer today because of low kidney biopsy. Hold anticoagulation till certain it is safe to proceed. (2) Anemia of chronic disease: Code(s): D63.8 - Anemia in other chronic diseases classified elsewhere Status: Acute Assessment and Plan: Anemia appears to be related to chronic kidney disease. Now with occult blood in stool will proceed with GI evaluation to be certain no GI contributing causes. (3) Congestive heart failure: Code(s): I50.9 - Heart failure, unspecified Status: Acute (4) Atrial fibrillation: Code(s): I48.91 - Unspecified atrial fibrillation Status: Acute Assessment and Plan: Patient with anemia. Requiring anticoagulation. Because of profound anemia now with occult blood in stool may need to be cautious with anticoagulation until GI studies are complete. Subjective Date/time seen: 01/15/21 10:56 Patient comfortable at rest today. No evidence for GI bleeding. Plan is for a kidney biopsy today. Review of Systems Review of Systems: All systems reviewed & are unremarkable except as noted in HPI and below Exam Narrative: Exam Narrative: Physical exam reveals patient be alert comfortable at rest. HEENT exam reveals no icterus. Lungs are clear. Heart irregularly irregular. Abdomen soft and nontender Objective Data Vital Signs Vital Signs: Vital Signs - 24 hr 01/14/21 12:00 01/14/21 14:00 01/14/21 16:00 Temperature 96.7 F L Pulse Rate 75 70 70 Respiratory Rate 18 Blood Pressure 112/83 Pulse Oximetry 99 01/14/21 18:00 01/14/21 20:00 01/14/21 20:39 Temperature 98.0 F Pulse Rate 73 68 71 Respiratory Rate 18 Blood Pressure 125/64 Pulse Oximetry 99 01/14/21 22:00 01/15/21 00:00 01/15/21 04:00 Temperature 97.2 F L 97.9 F Pulse Rate 71 69 70 Respiratory Rate 18 18 Blood Pressure 103/52 L 114/50 L Pulse Oximetry 96 96 01/15/21 05:02 Temperature 97.9 F Pulse Rate 75 Respiratory Rate 16 Blood Pressure 125/71 Pulse Oximetry 96 Intake/Output Intake/Output: Intake & Output 01/12/21 01/13/21 01/14/21 01/15/21 23:59 23:59 23:59 23:59 Intake Total 1915 2785 1685 50 Output Total 750 2600 1150 650 Balance 1165 185 535 -600 Meds/Results Medications: Active Medications Generic Name Dose Route Start Last Admin Trade Name Freq PRN Reason Stop Dose Admin Acetaminophen 650 mg 01/11/21 09:20 01/14/21 12:00 Acetaminophen 325 Mg Tablet PO 650 mg Q4H PRN Administration Mild Pain (1-3) or Fever Albuterol 2 puff 01/08/21 23:51 Albuterol Sulfate (*Sp) Aerosol 1 Puff INHALATION Q6HRT PRN Shortness Of Breath Atorvastatin Calcium 10 mg 01/09/21 09:00 01/14/21 08:53 Atorvastatin 10 Mg Tablet PO 10 mg DAILY CESAR Administration Bisacodyl 10 mg 01/12/21 12:45 Bisacodyl 10 Mg Suppository RECTAL Q24H PRN Constipation Carvedilol 12.5 mg 01/10/21 21:00 01/14/21 20:39 Carvedilol 12.5 Mg Tablet PO 12.5 mg Q12HR CESAR Administration Cyanocobalamin 1,000 mcg 01/12/21 09:00 01/14/21 08:53 Cyanocobalamin 1,000 Mcg Tablet PO 1,000 mcg QAM CESAR Administration Dextrose 12.5 gm 01/10/21 08:41 Dextrose 50% 25 Gm/50 Ml Syringe IV PUSH PRN PRN Hypoglycemia Protocol Docusate Sodium 100 mg 01/12/21 21:00 01/14/21 20:40 Docusate Sodium 100 Mg Capsule PO 100 mg Q12HR CESAR Administration Ferrous Sulfate 324 mg 01/09/21 08:00 01/14/21 17:39 Ferrous Sulfate 324 Mg Tablet PO 324 mg BIDWM CESAR Administration Glucagon 1 mg 01/10/21 08:41 Glucagon For Inj 1 Mg Vial IM PRN PRN Hypoglycemia Protocol Glucose 15
--- NOTE | 2021-01-15 11:45 | PC.NURSE ---
pt to US for scheduled biopsy via stretcher
--- NOTE | 2021-01-15 13:26 | PCDIET ---
call from US, pt will need to remain NPO for 2 hours and then may have clear liquids for 2 hours
[2021-01-15 13:38] LABS: Glucose Point of Care 202 mg/dl (65-105)
--- NOTE | 2021-01-15 13:38 | PC.NURSE ---
pt returned from procedure, reviewed that he needs to remain NPO for 2 more hours, will administer meds at that time
[2021-01-15] MEDS: ATORVASTATIN 10 MG TABLET PO (16:45)
[2021-01-15] MEDS: FERROUS SULFATE 324 MG TABLET PO (16:45)
[2021-01-15] MEDS: MAGNESIUM OXIDE 400 MG TABLET PO (16:45)
[2021-01-15] MEDS: CYANOCOBALAMIN 1,000 MCG TABLET 1000 MCG PO (16:45)
[2021-01-15] MEDS: POTASSIUM CHLORIDE 20 MEQ TABLET 40 MEQ PO (16:46)
[2021-01-15] MEDS: FUROSEMIDE 40 MG TABLET PO (16:47)
[2021-01-15] MEDS: PEG (High)/E-LYTE SOLN 4,000 ML BTL 4000 ML PO (16:54)
[2021-01-15 17:24] LABS: Glucose Point of Care 198 mg/dl (65-105)
[2021-01-15] MEDS: carvediloL 12.5 MG TABLET PO (21:25)
[2021-01-15] MEDS: DOCUSATE SODIUM 100 MG CAPSULE PO (21:25)
[2021-01-15] MEDS: PANTOPRAZOLE 40 MG TABLET PO (21:25)
[2021-01-15 22:40] LABS: Hematocrit 23.5 % (42.0-52.0); Hemoglobin 7.5 g/dL (14.0-18.0)
[2021-01-15 22:56] LABS: Glucose Point of Care 204 mg/dl (65-105)
[2021-01-16] VITALS (17 sets, daily range): BP systolic 119–134; BP diastolic 58–93; PULSE 65–85; RESP 16–22; TEMP 36.1–36.9; O2SAT 96–100
[2021-01-16 05:36] LABS: Kappa\\Lambda Light Chains 1.95 (0.26-1.65); Lambda Light Chain 57.4 mg/L (5.7-26.3)
[2021-01-16 05:43] LABS: Hematocrit 23.6 % (42.0-52.0); Hemoglobin 7.4 g/dL (14.0-18.0)
[2021-01-16 06:09] LABS: Albumin Level 2.7 g/dL (3.5-5.1); Anion Gap 10 mmol/L (8-16); Blood Urea Nitrogen 86 mg/dL (9-20); Calcium 8.6 mg/dL (8.4-10.2); Carbon Dioxide 26 mmol/L (22-30); Chloride 100 mmol/L (98-107); Estimated CRCL calculation 28 ml/min; Estimated Glomerular Filt Rate 30; Glucose 196 mg/dL (75-110); Phosphorus 3.7 mg/dL (2.5-4.5); Potassium 3.2 mmol/L (3.4-5.0); Sodium 136 mmol/L (137-145)
[2021-01-16 06:40] LABS: Hemoglobin A1C 7.2 % (<5.7)
--- NOTE | 2021-01-16 07:31 | P.PNNP_ITS ---
Progress Note: A&P Assessment and Plan (1) LINDSEY (acute kidney injury): Code(s): N17.9 - Acute kidney failure, unspecified Status: Acute Assessment and Plan: * etiology under investigation * He had a normal creatinine in June. this has gradually worsened since the to the current level of 2.3. * renal ultrasound show no issues regarding acute kidney injury. There is a hemorrhagic cyst which needs to be further evaluated. * Urine electrolytes are Non pre renal. * Mild Proteinuria. * Immunofixation shows an abnormal band. * biopsy done yesterday. We should have some information later today or tomorrow. * He still has swelling so will continue diuretics. I talked with MURPHY Feliz yesterday (2) Stage 3b chronic kidney disease: Code(s): N18.32 - Chronic kidney disease, stage 3b Status: Chronic Assessment and Plan: * Technically chronic kidney disease because his GFR has been elevated for more than 3 months but this looks more like a smoldering picture with worsened creatinine over the last 3-6 months. (3) Anemia: Code(s): D64.9 - Anemia, unspecified Status: Acute Assessment and Plan: * long standing history * PRBC transfusion per protocol * due in part to iron and B12 deficiency * Hemoglobin down a bit. * stool is guaiac positive. * Colonoscopy today. * Getting iron per Dr. Pelletier (4) Hypertension: Code(s): I10 - Essential (primary) hypertension Status: Chronic Assessment and Plan: * Systolic blood pressure is well controlled. * He is on carvedilol (5) Fever: Qualifiers: Fever type: unspecified Qualified Code(s): R50.9 - Fever, unspecified Code(s): R50.9 - Fever, unspecified Status: Acute Assessment and Plan: * finished antibiotics. * Cultures negative so far. * no fever. wbc okay (6) Bilateral edema of lower extremity: Code(s): R60.0 - Localized edema Status: Acute Assessment and Plan: * Etiology unclear. * Echocardiogram looked okay. * off [id number] * No history of liver disease. Bilirubin is been okay. * Venous Dopplers are negative. * CT abdomen shows no retroperitoneal process. * still has some edema. on lasix 40 bid. (7) Diabetes: Code(s): E11.9 - Type 2 diabetes mellitus without complications Status: Chronic Assessment and Plan: * follow accuchecks * glycemic control Subjective Date/time seen: 01/16/21 07:31 Interval history: Mr. Yanez is feeling okay. He had a busy night with his bowel prep. His biopsy went fine. He had no pain. Exam Narrative: Exam Narrative: General: WD/WN male in NAD Heart: normal S1 and S2; IRRR; no rub or gallop Lungs: clear To auscultation Abdomen: soft, nontender, nondistended, positive bowel sounds Extremities: 1-2+ edema, left greater than right Skin: No rash Objective Data Vital Signs Vital Signs: Vital Signs - 24 hr 01/15/21 08:00 01/15/21 10:00 01/15/21 12:00 Temperature 36.3 C L Pulse Rate 74 71 72 Respiratory Rate 18 Blood Pressure 119/65 Pulse Oximetry 100 01/15/21 13:27 01/15/21 14:00 01/15/21 16:00 Temperature 36.2 C L Pulse Rate 64 78 69 Respiratory Rate 18 18 Blood Pressure 137/73 124/76 Pulse Oximetry 97 98
--- NOTE | 2021-01-16 07:31 | PM.PNNEP ---
Progress Note: A&P Assessment and Plan (1) LINDSEY (acute kidney injury): Code(s): N17.9 - Acute kidney failure, unspecified Status: Acute Assessment and Plan: etiology under investigation He had a normal creatinine in June. this has gradually worsened since the to the current level of 2.3. renal ultrasound show no issues regarding acute kidney injury. There is a hemorrhagic cyst which needs to be further evaluated. Urine electrolytes are Non pre renal. Mild Proteinuria. Immunofixation shows an abnormal band. biopsy done yesterday. We should have some information later today or tomorrow. He still has swelling so will continue diuretics. I talked with MURPHY Feliz yesterday (2) Stage 3b chronic kidney disease: Code(s): N18.32 - Chronic kidney disease, stage 3b Status: Chronic Assessment and Plan: Technically chronic kidney disease because his GFR has been elevated for more than 3 months but this looks more like a smoldering picture with worsened creatinine over the last 3-6 months. (3) Anemia: Code(s): D64.9 - Anemia, unspecified Status: Acute Assessment and Plan: long standing history PRBC transfusion per protocol due in part to iron and B12 deficiency Hemoglobin down a bit. stool is guaiac positive. Colonoscopy today. Getting iron per Dr. Pelletier (4) Hypertension: Code(s): I10 - Essential (primary) hypertension Status: Chronic Assessment and Plan: Systolic blood pressure is well controlled. He is on carvedilol (5) Fever: Qualifiers: Fever type: unspecified Qualified Code(s): R50.9 - Fever, unspecified Code(s): R50.9 - Fever, unspecified Status: Acute Assessment and Plan: finished antibiotics. Cultures negative so far. no fever. wbc okay (6) Bilateral edema of lower extremity: Code(s): R60.0 - Localized edema Status: Acute Assessment and Plan: Etiology unclear. Echocardiogram looked okay. off [id number] No history of liver disease. Bilirubin is been okay. Venous Dopplers are negative. CT abdomen shows no retroperitoneal process. still has some edema. on lasix 40 bid. (7) Diabetes: Code(s): E11.9 - Type 2 diabetes mellitus without complications Status: Chronic Assessment and Plan: follow accuchecks glycemic control Subjective Date/time seen: 01/16/21 07:31 Interval history: Mr. Yanez is feeling okay. He had a busy night with his bowel prep. His biopsy went fine. He had no pain. Exam Narrative: Exam Narrative: General: WD/WN male in NAD Heart: normal S1 and S2; IRRR; no rub or gallop Lungs: clear To auscultation Abdomen: soft, nontender, nondistended, positive bowel sounds Extremities: 1-2+ edema, left greater than right Skin: No rash Objective Data Vital Signs Vital Signs: Vital Signs - 24 hr 01/15/21 08:00 01/15/21 10:00 01/15/21 12:00 Temperature 36.3 C L Pulse Rate 74 71 72 Respiratory Rate 18 Blood Pressure 119/65 Pulse Oximetry 100 01/15/21 13:27 01/15/21 14:00 01/15/21 16:00 Temperature 36.2 C L Pulse Rate 64 78 69 Respiratory Rate 18 18 Blood Pressure 137/73 124/76 Pulse Oximetry 97 98 01/15/21 20:00 01/15/21 20:15 01/15/21 21:00 Temperature 36.8 C 36.8 C Pulse Rate 72 73 78 Respiratory Rate 16 16 Blood Pressure 114/58 L 120/59 L Pulse Oximetry 100 100 01/15/21 21:25 01/16/21 00:00 01/16/21 04:00 Temperature 36.7 C 36.9 C Pulse Rate 74 66 77 Respiratory Rate 16 16 Blood Pressure 119/58 L 128/61 Pulse Oximetry 100 99 Intake/Output Intake/Output: Intake & Output 01/13/21 01/14/21 01/15/21 01/16/21 23:59 23:59 23:59 23:59 Intake Total 2785 1685 1040 600 Output Total 2600 1150 1950 1400 Balance 185 952 -141 -013 Meds/Results Medications: Active Medications Generic Name Dose Route Start Last Admin Trade
--- NOTE | 2021-01-16 08:01 | WPDANESEPPF ---
Anes - Initial Pre Proc Eval Procedure: Operation Date: 01/16/21 13:00 Proposed Procedures p Colonoscopy - Wong Ramos MD Date/Time: 01/16/21 08:01 Surgeon: CADEN Ahumada Pre Op Diagnosis: Symptomatic Anemia, CHF Patient Data Age: 80 Gender: M Height: 1.78 m Weight: 116.2 kg Last Vital Signs Temp 36.9 C 01/16/21 04:00 Pulse 77 01/16/21 04:00 Resp 16 01/16/21 04:00 BP 128/61 01/16/21 04:00 Pulse Ox 99 01/16/21 04:00 Allergies Allergy/AdvReac Type Severity Reaction Status Date / Time No Known Allergies Verified 01/08/21 12:37 Home Medications Medication Instructions Recorded Confirmed Type blood pressure monitor #1 each 01/10/20 01/09/21 Rx blood sugar diagnostic #100 each 01/10/20 01/09/21 Rx blood-glucose meter #1 each 01/10/20 01/09/21 Rx lancets #200 each 01/10/20 01/09/21 Rx tramadol 50 mg tablet 50 mg PO Q8H PRN #90 tablet 09/29/20 01/08/21 Rx Victoza 2-Vidal 1.2 mg SUBCUT DAILY 10/08/20 01/08/21 History pioglitazone 45 mg PO DAILY 10/08/20 01/08/21 History albuterol sulfate [Proventil HFA] 2 puff INHALATION Q6HRT PRN #6.7 g 10/13/20 01/08/21 Rx furosemide [Lasix] 40 mg PO BID #90 tablet 10/13/20 01/08/21 Rx metformin 1,000 mg tablet 1,000 mg PO BID #180 tablet 10/19/20 01/08/21 Rx amlodipine 5 mg tablet 5 mg PO DAILY #90 tablet 11/06/20 01/08/21 Rx atorvastatin 10 mg tablet 10 mg PO DAILY #90 tablet 11/06/20 01/08/21 Rx carvedilol 6.25 mg tablet 6.25 mg PO Q12HR #60 tablet 11/06/20 01/08/21 Rx rivaroxaban 15 mg tablet 15 mg PO DAILY@1700 #90 tablet 11/06/20 01/08/21 Rx losartan 25 mg tablet 25 mg PO QAM #90 tablet 06/01/21 06/07/21 Rx Laboratory Tests 01/12/21 01/15/21 01/15/21 15:41 07:47 08:18 Hgb Hct PT 16.7 Seconds H Seconds (11.1-14.7) INR 1.3 APTT 37.2 SECONDS H SECONDS (22.3-36.8) Sodium Potassium Chloride Carbon Dioxide Anion Gap BUN Creatinine Estim Creat Clear Calc Estimated GFR Glucose POC Capillary Glucose 250 mg/dl H mg/dl (65-105) Hemoglobin A1c Calcium Phosphorus Albumin Blue Bell/Lambda Ratio 1.95 H (0.26-1.65) Free Blue Bell Light Chains 111.9 mg/L H mg/L (3.3-19.4) Free Lambda Light Chain 57.4 mg/L H mg/L (5.7-26.3) 01/15/21 01/15/21 01/15/21 13:35 16:42 21:23 Hgb Hct PT INR APTT Sodium Potassium Chloride Carbon Dioxide Anion Gap BUN Creatinine Estim Creat Clear Calc Estimated GFR Glucose POC Capillary Glucose 202 mg/dl H mg/dl 198 mg/dl H mg/dl 204 mg/dl H mg/dl (65-105) (65-105) (65-105) Hemoglobin A1c Calcium Phosphorus Albumin Blue Bell/Lambda Ratio Free Blue Bell Light Chains Free Lambda Light Chain 01/15/21 01/16/21 01/16/21 22:28 05:33 05:33 Hgb 7.5 g/dL L g/dL 7.4 g/dL L g/dL (14.0-18.0) (14.0-18.0) Hct 23.5 % L % 23.6 % L % (42.0-52.0) (42.0-52.0) PT INR APTT Sodium Potassium Chloride Carbon Dioxide Anion Gap BUN Creatinine Estim Creat Clear Calc Estimated GFR Glucose POC Capillary Glucose Hemoglobin A1c 7.2 % H % (<5.7) Calcium Phosphorus Albumin Blue Bell/Lambda Ratio Free Blue Bell Light Chains Free Lambda Light Chain 01/16/21 05:33 Hgb Hct PT INR APTT Sodium 13
[2021-01-16] MEDS: MAGNESIUM OXIDE 400 MG TABLET PO (08:18)
[2021-01-16] MEDS: FUROSEMIDE 40 MG TABLET PO ×2 (08:18→16:16)
[2021-01-16] MEDS: carvediloL 12.5 MG TABLET PO ×2 (08:19→20:26)
[2021-01-16] MEDS: PANTOPRAZOLE 40 MG TABLET PO (08:20)
[2021-01-16 08:28] LABS: Glucose Point of Care 202 mg/dl (65-105)
--- NOTE | 2021-01-16 11:02 | PC.NURSE ---
Report called to [facility].
--- NOTE | 2021-01-16 11:20 | PC.NURSE ---
To GI Lab via [facility].
--- NOTE | 2021-01-16 11:22 | PCNFU ---
Nutrition Follow-Up Complete: Unintended weight loss related to poor appetite and diet changes as evidenced by a reported weight loss of 8-10lbs within the last 3 months. Goal: Have patient meet estimated needs. Patient is progressing towards goal. We will continue current goal. Pt current nutrition is Heart Healthy/DBCC Last recorded weight is 116.2 kg. up from 108.1 kg on admit. Bowel Motility:+BM reported 01/16 Labs Reviewed:HbA1c 7.2%, Glu 196,Cr 2.5,BUN 86,Alb 2.7,Na 136 Meds Noted:Ultram,Lasix,Vit B12,Coreg,Xarelto, Mag ox, Protonix Additional Notes:Nutrition follow. Patient currently NPO for EGD/colonoscopy today. Patient has been on a heart healthy/DBCC diet, oral intake 80-100% of meals. Agree with diet orders. Monitoring: Will follow up in 7 days.
[2021-01-16 11:42] LABS: Glucose Point of Care 210 mg/dl (65-105)
[2021-01-16] MEDS: LACTATED RINGERS 1,000 ML 150 ML IV CONT (11:59)
--- NOTE | 2021-01-16 13:30 | PC.NURSE ---
Return from GI Lab via stretcher.
[2021-01-16 13:48] LABS: Glucose Point of Care 192 mg/dl (65-105)
[2021-01-16] MEDS: CYANOCOBALAMIN 1,000 MCG TABLET 1000 MCG PO (13:51)
--- NOTE | 2021-01-16 13:58 | PCOTNOTE ---
Attempted to see patient for OT, patient just back from GI lab for endoscopy and declined OT. Patient stated he wanted to bathe tomorrow. Will continue plan of care then.
--- NOTE | 2021-01-16 15:16 | P.PNIM_ITS ---
Progress Note: A&P Assessment and Plan (1) Symptomatic anemia: Code(s): D64.9 - Anemia, unspecified Status: Acute Assessment and Plan: * Patient has anemia of chronic disease, iron deficiency anemia, and B12 def iciency. On long-term anticoagulation with Xarelto which has been on hold. * Received 1 unit packed RBC transfusion 01/11. * GI evaluation today demonstrates no obvious blood loss to explain his drop in Hgb. Some internal hemorrhoids or diverticulosis could have caused positive stool occult blood. * Received 4 doses of IV Venofer and 3 doses of IM vitamin B12 supplementation; plan to discharge with oral ferrous sulfate 324mg BIDWM and oral B12 supplementation. * Continue to monitor H&H and consider another transfusion for Hgb less than 7. (2) Acute on chronic kidney failure: Code(s): N17.9 - Acute kidney failure, unspecified; N18.9 - Chronic kidney disease, unspecified Status: Chronic Assessment and Plan: * Patient has acute on chronic renal insufficiency. Likely due to a combination of ARB and diuretic therapy. Losartan is held and continue diuretic therapy given his lower extremity swelling. * Cr gradually worsening over the last several months. Underwent renal biopsy 01/15 due to a positive abnormal protein band 1 for further evaluation of myeloma or MGUS which could explain his decline in renal function and anemia. * Continue monitoring renal function, urine output electrolytes. Appreciate nephrology recommendations. (3) Congestive heart failure: Code(s): I50.9 - Heart failure, unspecified Status: Acute Assessment and Plan: * Increased lower extremity swelling suspect acute on chronic diastolic CHF. No shortness of breath. * Has been treated with Bumex and metolazone without much improvement on diuresis. Maintained on oral Lasix BID today. * Continue to monitor I&O. Appreciate cardiology input. (4) Fever: Qualifiers: Fever type: unspecified Qualified Code(s): R50.9 - Fever, unspecified Code(s): R50.9 - Fever, unspecified Status: Acute Assessment and Plan: * Resolved. Low-grade fever early in the stay; COVID negative, influenza nega tive. Completed 7-day course of antibiotic therapy 01/14 with cefepime and vancomycin for possible hospital-acquired pneumonia. Pneumococcal and Legionella urine antigens negative. Blood cultures negative. (5) Elevated troponin: Code(s): R77.8 - Other specified abnormalities of plasma proteins Status: Acute Assessment and Plan: * Troponins mildly elevated with flat profile without chest pain. May be related to fluid overload. ACS not suspected. * Appreciate cardiology input. Date of stress test earlier this year as an outpatient. Continue monitoring. (6) Nodule of kidney: Code(s): N28.89 - Other specified disorders of kidney and ureter Status: Acute Assessment and Plan: * Renal US showed indeterminate 1.4 cm isoechoic exophytic lesion at the upper pole the right kidney which raises concern for renal cell carcinoma. * Underwent renal biopsy 01/15 due to Positive abnormal Protein band 1. * Recommend the patient follow up with Urology as an outpatient for further testing to evaluate kidney mass. Will give information to follow up with Dr. Salinas further evaluation with pre and postcontrast MRI or CT.
--- NOTE | 2021-01-16 15:16 | PM.IMPN ---
Progress Note: A&P Assessment and Plan (1) Symptomatic anemia: Code(s): D64.9 - Anemia, unspecified Status: Acute Assessment and Plan: Patient has anemia of chronic disease, iron deficiency anemia, and B12 deficiency. On long-term anticoagulation with Xarelto which has been on hold. Received 1 unit packed RBC transfusion 01/11. GI evaluation today demonstrates no obvious blood loss to explain his drop in Hgb. Some internal hemorrhoids or diverticulosis could have caused positive stool occult blood. Received 4 doses of IV Venofer and 3 doses of IM vitamin B12 supplementation; plan to discharge with oral ferrous sulfate 324mg BIDWM and oral B12 supplementation. Continue to monitor H&H and consider another transfusion for Hgb less than 7. (2) Acute on chronic kidney failure: Code(s): N17.9 - Acute kidney failure, unspecified; N18.9 - Chronic kidney disease, unspecified Status: Chronic Assessment and Plan: Patient has acute on chronic renal insufficiency. Likely due to a combination of ARB and diuretic therapy. Losartan is held and continue diuretic therapy given his lower extremity swelling. Cr gradually worsening over the last several months. Underwent renal biopsy 01/15 due to a positive abnormal protein band 1 for further evaluation of myeloma or MGUS which could explain his decline in renal function and anemia. Continue monitoring renal function, urine output electrolytes. Appreciate nephrology recommendations. (3) Congestive heart failure: Code(s): I50.9 - Heart failure, unspecified Status: Acute Assessment and Plan: Increased lower extremity swelling suspect acute on chronic diastolic CHF. No shortness of breath. Has been treated with Bumex and metolazone without much improvement on diuresis. Maintained on oral Lasix BID today. Continue to monitor I&O. Appreciate cardiology input. (4) Fever: Qualifiers: Fever type: unspecified Qualified Code(s): R50.9 - Fever, unspecified Code(s): R50.9 - Fever, unspecified Status: Acute Assessment and Plan: Resolved. Low-grade fever early in the stay; COVID negative, influenza negative. Completed 7-day course of antibiotic therapy 01/14 with cefepime and vancomycin for possible hospital-acquired pneumonia. Pneumococcal and Legionella urine antigens negative. Blood cultures negative. (5) Elevated troponin: Code(s): R77.8 - Other specified abnormalities of plasma proteins Status: Acute Assessment and Plan: Troponins mildly elevated with flat profile without chest pain. May be related to fluid overload. ACS not suspected. Appreciate cardiology input. Date of stress test earlier this year as an outpatient. Continue monitoring. (6) Nodule of kidney: Code(s): N28.89 - Other specified disorders of kidney and ureter Status: Acute Assessment and Plan: Renal US showed indeterminate 1.4 cm isoechoic exophytic lesion at the upper pole the right kidney which raises concern for renal cell carcinoma. Underwent renal biopsy 01/15 due to Positive abnormal Protein band 1. Recommend the patient follow up with Urology as an outpatient for further testing to evaluate kidney mass. Will give information to follow up with Dr. Salinas further evaluation with pre and postcontrast MRI or CT. (7) Type 2 diabetes mellitus with diabetic neuropathy: Code(s): E11.40 - Type 2 diabetes mellitus with diabetic neuropathy, unspecified Status: Acute Assessment and Plan: Patient is on Vicotza and Metformin at home. Here we have held Metformin (renal function) and Victoza (nonformulary). His glucose has been in the 200's.
[2021-01-16] MEDS: FERROUS SULFATE 324 MG TABLET PO (16:16)
[2021-01-16 16:29] LABS: Glucose Point of Care 241 mg/dl (65-105)
[2021-01-16] MEDS: INSULIN ASPART (*BKC) 100 UNITS/ML SUB-Q (16:31)
[2021-01-16] MEDS: DOCUSATE SODIUM 100 MG CAPSULE PO (20:26)
[2021-01-16 22:03] LABS: Glucose Point of Care 218 mg/dl (65-105)
[2021-01-17] VITALS (12 sets, daily range): BP systolic 113–129; BP diastolic 61–71; PULSE 64–80; RESP 16–18; TEMP 36.3–36.6; O2SAT 99–100
[2021-01-17 07:04] LABS: Basophils Absolute Auto 0.1 K/mm3 (0.0-0.1); Basophils Percent Auto 0.8 % (0.2-1.2); Eosinophils Absolute Auto 0.1 K/mm3 (0-0.3); Eosinophils Percent Auto 1.7 % (0-4.4); Hematocrit 24.5 % (42.0-52.0); Hemoglobin 7.6 g/dL (14.0-18.0); Immature Granulocyte Absolute 0.06 K/mm3 (0.00-0.031); Immature Granulocyte Percent A 0.9 % (0-0.5); Lymphocytes Absolute Auto 1.36 K/mm3 (0.9-3.2); Lymphocytes Percent Auto 21.4 % (18.3-44.2); Mean Corpuscular Volume 83.9 fl (80-100); Mean Platelet Volume 9.7 fl (7.4-10.4); Monocytes Absolute Auto 0.9 K/mm3 (0.1-0.6); Monocytes Percent Auto 13.4 % (2.6-8.5); Neutrophils Absolute Auto 3.9 K/mm3 (1.3-6.7); Neutrophils Percent Auto 61.8 % (45.5-73.1); Platelet Count Result 300 k/mm3 (150-375); Red Blood Count 2.92 M/mm3 (4.6-6.20); Red Cell Distribution Width 17.7 % (11.5-14.5); White Blood Count 6.4 K/mm3 (4.5-10.0)
[2021-01-17 07:13] LABS: Albumin Level 2.8 g/dL (3.5-5.1); Anion Gap 8 mmol/L (8-16); Blood Urea Nitrogen 87 mg/dL (9-20); Calcium 8.7 mg/dL (8.4-10.2); Carbon Dioxide 27 mmol/L (22-30); Chloride 99 mmol/L (98-107); Estimated CRCL calculation 29 ml/min; Estimated Glomerular Filt Rate 32; Glucose 203 mg/dL (75-110); Magnesium 1.9 mg/dL (1.6-2.3); Phosphorus 3.6 mg/dL (2.5-4.5); Potassium 3.5 mmol/L (3.4-5.0); Sodium 134 mmol/L (137-145)
[2021-01-17 07:17] LABS: Glucose Point of Care 179 mg/dl (65-105)
[2021-01-17 08:02] LABS: Vancomycin Trough 18.6 ug/mL (10.0-20.0)
--- NOTE | 2021-01-17 08:47 | PM.PNCARD ---
Progress Note: A&P Assessment and Plan (1) Congestive heart failure: Code(s): I50.9 - Heart failure, unspecified <PHILIPPE Garg - Last Filed: 01/17/21 16:37> Status: Acute <PHILIPPE Garg - Last Filed: 01/17/21 16:37> Assessment and Plan: This is predominantly right-sided and diastolic acute on chronic. Continues to have moderate bilateral LE edema. Will give 1mg IV Bumex x1 today. Creatine stable. Continue to monitor daily BMP. 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 Negative stress test earlier this year as an outpatient in our office. no plans or indication for invasive ischemic assessment at this time. <PHILIPPE Garg - Last Filed: 01/17/21 16:37> (3) LINDSEY (acute kidney injury): Code(s): N17.9 - Acute kidney failure, unspecified <PHILIPPE Garg - Last Filed: 01/17/21 16:37> Status: Acute <PHILIPPE Garg - Last Filed: 01/17/21 16:37> Assessment and Plan: Acute on chronic renal failure. Avoid nephrotoxic agents. Hold losartan. Caution with diuretics. Dr. Crouch assisting. Renal biopsy today. <PHILIPPE Garg - Last Filed: 01/17/21 16:37> (4) Anemia of chronic disease: Code(s): D63.8 - Anemia in other chronic diseases classified elsewhere <PHILIPPE Garg - Last Filed: 01/17/21 16:37> Status: Acute <PHILIPPE Garg - Last Filed: 01/17/21 16:37> Assessment and Plan: Multifactorial, acute on chronic. No clear clinical evidence for active bleed. H&H dropped overnight despite blood transfusion yesterday. Spoke with hospitalist about plan to c/s GI for poss. scope to identify possible source of bleeding. Resume Xarelto as there was no bleeding source found on endoscopy. <PHILIPPE Garg - Last Filed: 01/17/21 16:37> (5) Atrial fibrillation: Code(s): I48.91 - Unspecified atrial fibrillation <PHILIPPE Garg - Last Filed: 01/17/21 16:37> Status: Acute <PHILIPPE Garg - Last Filed: 01/17/21 16:37> Assessment and Plan: Persistent, rate controlled, asymptomatic. May continue carvedilol. Resume Xarelto. See above. <PHILIPPE Garg - Last Filed: 01/17/21 16:37> (6) Hypertension associated with diabetes: Code(s): E11.59 - Type 2 diabetes mellitus with other circulatory complications; I15.2 - Hypertension secondary to endocrine disorders <PHILIPPE Garg - Last Filed: 01/17/21 16:37> Status: Acute <PHILIPPE Garg - Last Filed: 01/17/21 16:37> Assessment and Plan: BP reasonably controlled on present regimen. <PHILIPPE Garg - Last Filed: 01/17/21 16:37> (7) Pulmonary hypertension: Code(s): I27.20 - Pulmonary hypertension, unspecified <PHILIPPE Garg - Last Filed: 01/17/21 16:37> Status: Acute <PHILIPPE Garg - Last Filed: 01/17/21 16:37> Assessment and Plan: Moderate in severity RVSP 59 mm Hg. Patient claims apnea link performed previously do not see documented. He denies prior known history of KEV. per review records patient was previously utilizing BiPAP 17/03 in October. I would not be surprised if patient has significant KEV complicating management. <Lluvia Fowler, RIM TECHNICIAN-C - Last Filed: 01/17/21 16:37> Additional Plan Addendum: Pt seen chart reviewed, agree w/ PRACTICE OR STUDENT TEACHER Lluvia Fowler's assessment and plan. Pt not out of bed much, feet still hurt, no
[2021-01-17] MEDS: FERROUS SULFATE 324 MG TABLET PO ×2 (09:16→17:39)
[2021-01-17] MEDS: PANTOPRAZOLE 40 MG TABLET PO (09:16)
[2021-01-17] MEDS: carvediloL 12.5 MG TABLET PO ×2 (09:16→22:07)
[2021-01-17] MEDS: MAGNESIUM OXIDE 400 MG TABLET PO (09:16)
[2021-01-17] MEDS: FUROSEMIDE 40 MG TABLET PO ×2 (09:16→17:39)
[2021-01-17] MEDS: CYANOCOBALAMIN 1,000 MCG TABLET 1000 MCG PO (09:16)
[2021-01-17] MEDS: polyethylene glycoL 3350 17 GM POWD.PACK PO (09:17)
[2021-01-17] MEDS: ATORVASTATIN 10 MG TABLET PO (09:17)
[2021-01-17] MEDS: DOCUSATE SODIUM 100 MG CAPSULE PO ×2 (09:22→22:10)
--- NOTE | 2021-01-17 10:17 | P.PNNP_ITS ---
Progress Note: A&P Assessment and Plan (1) LINDSEY (acute kidney injury): Code(s): N17.9 - Acute kidney failure, unspecified Status: Acute Assessment and Plan: * etiology under investigation * He had a normal creatinine in June. this has gradually worsened since the to the current level of 2.3. * renal ultrasound show no issues regarding acute kidney injury. There is a hemorrhagic cyst which needs to be further evaluated. * Urine electrolytes are Non pre renal. * Mild Proteinuria. * Immunofixation shows an abnormal band. * biopsy shows no paraprotein issue. just DM and 50% scarring, explaining his creat of 2. (2) Stage 3b chronic kidney disease: Code(s): N18.32 - Chronic kidney disease, stage 3b Status: Chronic Assessment and Plan: * Technically chronic kidney disease because his GFR has been elevated for more than 3 months but this looks more like a smoldering picture with worsened creatinine over the last 3-6 months. (3) Anemia: Code(s): D64.9 - Anemia, unspecified Status: Acute Assessment and Plan: * long standing history * PRBC transfusion per protocol * due in part to iron and B12 deficiency * Hemoglobin down a bit. * stool is guaiac positive. * Colonoscopy done * Getting iron per Dr. Pelletier (4) Hypertension: Code(s): I10 - Essential (primary) hypertension Status: Chronic Assessment and Plan: * Systolic blood pressure is well controlled. * He is on carvedilol (5) Fever: Qualifiers: Fever type: unspecified Qualified Code(s): R50.9 - Fever, unspecified Code(s): R50.9 - Fever, unspecified Status: Acute Assessment and Plan: * resolved (6) Bilateral edema of lower extremity: Code(s): R60.0 - Localized edema Status: Acute Assessment and Plan: * Etiology unclear. * Echocardiogram looked okay. * off [id number] * No history of liver disease. Bilirubin is been okay. * Venous Dopplers are negative. * CT abdomen shows no retroperitoneal process. * still has some edema. on lasix 40 bid. (7) Diabetes: Code(s): E11.9 - Type 2 diabetes mellitus without complications Status: Chronic Assessment and Plan: * follow accuchecks * glycemic control Subjective Date/time seen: 06/16/21 10:17 Interval history: Mr. Yanez is feeling okay. had colonoscopy yesterday eating okay today Exam Narrative: Exam Narrative: General: WD/WN male in NAD Heart: normal S1 and S2; IRRR; no rub or gallop Lungs: clear To auscultation Abdomen: soft, nontender, nondistended, positive bowel sounds Extremities: 1-2+ edema, left greater than right Skin: No rash Objective Data Vital Signs Vital Signs: Vital Signs - 24 hr 01/16/21 11:52 01/16/21 12:54 01/16/21 13:04 Temperature 36.4 C Pulse Rate 77 76 74 Respiratory Rate 18 20 22 H Blood Pressure 120/70 125/93 H 134/87 Pulse Oximetry 100 98 100 01/16/21 13:14 01/16/21 13:30 01/16/21 13:45 Temperature 36.1 C L Pulse Rate 76 65 Respiratory Rate 18 18 18 Blood Pressure 132/79 133/75 Pulse Oximetry 100 98 100 01/16/21 14:00 01/16/21 16:00 01/16/21 20:00 Temperature 36.6 C Pulse Rate 77 70 71 Respiratory Rate 18
--- NOTE | 2021-01-17 10:17 | PM.PNNEP ---
Progress Note: A&P Assessment and Plan (1) LINDSEY (acute kidney injury): Code(s): N17.9 - Acute kidney failure, unspecified Status: Acute Assessment and Plan: etiology under investigation He had a normal creatinine in June. this has gradually worsened since the to the current level of 2.3. renal ultrasound show no issues regarding acute kidney injury. There is a hemorrhagic cyst which needs to be further evaluated. Urine electrolytes are Non pre renal. Mild Proteinuria. Immunofixation shows an abnormal band. biopsy shows no paraprotein issue. just DM and 50% scarring, explaining his creat of 2. (2) Stage 3b chronic kidney disease: Code(s): N18.32 - Chronic kidney disease, stage 3b Status: Chronic Assessment and Plan: Technically chronic kidney disease because his GFR has been elevated for more than 3 months but this looks more like a smoldering picture with worsened creatinine over the last 3-6 months. (3) Anemia: Code(s): D64.9 - Anemia, unspecified Status: Acute Assessment and Plan: long standing history PRBC transfusion per protocol due in part to iron and B12 deficiency Hemoglobin down a bit. stool is guaiac positive. Colonoscopy done Getting iron per Dr. Pelletier (4) Hypertension: Code(s): I10 - Essential (primary) hypertension Status: Chronic Assessment and Plan: Systolic blood pressure is well controlled. He is on carvedilol (5) Fever: Qualifiers: Fever type: unspecified Qualified Code(s): R50.9 - Fever, unspecified Code(s): R50.9 - Fever, unspecified Status: Acute Assessment and Plan: resolved (6) Bilateral edema of lower extremity: Code(s): R60.0 - Localized edema Status: Acute Assessment and Plan: Etiology unclear. Echocardiogram looked okay. off [id number] No history of liver disease. Bilirubin is been okay. Venous Dopplers are negative. CT abdomen shows no retroperitoneal process. still has some edema. on lasix 40 bid. (7) Diabetes: Code(s): E11.9 - Type 2 diabetes mellitus without complications Status: Chronic Assessment and Plan: follow accuchecks glycemic control Subjective Date/time seen: 01/17/21 10:17 Interval history: Mr. Yanez is feeling okay. had colonoscopy yesterday eating okay today Exam Narrative: Exam Narrative: General: WD/WN male in NAD Heart: normal S1 and S2; IRRR; no rub or gallop Lungs: clear To auscultation Abdomen: soft, nontender, nondistended, positive bowel sounds Extremities: 1-2+ edema, left greater than right Skin: No rash Objective Data Vital Signs Vital Signs: Vital Signs - 24 hr 01/16/21 11:52 01/16/21 12:54 01/16/21 13:04 Temperature 36.4 C Pulse Rate 77 76 74 Respiratory Rate 18 20 22 H Blood Pressure 120/70 125/93 H 134/87 Pulse Oximetry 100 98 100 01/16/21 13:14 01/16/21 13:30 01/16/21 13:45 Temperature 36.1 C L Pulse Rate 76 65 Respiratory Rate 18 18 18 Blood Pressure 132/79 133/75 Pulse Oximetry 100 98 100 01/16/21 14:00 01/16/21 16:00 01/16/21 20:00 Temperature 36.6 C Pulse Rate 77 70 71 Respiratory Rate 18 Blood Pressure 134/80 Pulse Oximetry 100 01/16/21 20:26 01/16/21 20:34 01/17/21 00:00 Temperature 36.2 C L Pulse Rate 82 72 72 Respiratory Rate 18 Blood Pressure 123/60 Pulse Oximetry 98 01/17/21 04:00 01/17/21 05:38 01/17/21 09:16 Temperature 36.3 C L Pulse Rate 65 65 74 Respiratory Rate 18 Blood Pressure 126/71 Pulse Oximetry 100 Intake/Output Intake/Output: Intake & Output 01/14/21 01/15/21 01/16/21 01/17/21 23:59 23:59 23:59 23:59 Intake Total 1685 1040 1790 220 Output Total 1150 1950 2500 500 Balance 535 -910 -710 -280 Meds/Results Medications: Active Medications Generic Name Dose Route Start Last Admin Trade Name Freq PRN Reason Stop
[2021-01-17 11:49] LABS: Glucose Point of Care 239 mg/dl (65-105)
[2021-01-17] MEDS: INSULIN ASPART (*BKC) 100 UNITS/ML SUB-Q ×2 (12:09→17:40)
[2021-01-17 16:30] LABS: Glucose Point of Care 230 mg/dl (65-105)
[2021-01-17] MEDS: RIVAROXABAN 15 MG TABLET PO (17:39)
--- NOTE | 2021-01-17 19:06 | PM.IMPN ---
Progress Note: A&P Assessment and Plan (1) Generalized muscle weakness: Code(s): M62.81 - Muscle weakness (generalized) Status: Acute Assessment and Plan: Patient has not walked since admission. He would really like to go home with home health but he is still using [facility] for transfers and has not ambulated. He remains quite weak. Lengthy discussion with patient and his at bedside regarding the safety of his discharge planning and I recommend SNF. Case management aware, working on SNF authorization. Hopeful for discharge tomorrow if dc planning is arranged. (2) Symptomatic anemia: Code(s): D64.9 - Anemia, unspecified Status: Acute Assessment and Plan: Patient has anemia of chronic disease, iron deficiency anemia, and B12 deficiency. On long-term anticoagulation with Xarelto which has been on hold. Received 1 unit packed RBC transfusion 01/11. GI evaluation 01/16 demonstrates no obvious blood loss to explain his drop in Hgb. Some internal hemorrhoids or diverticulosis could have caused positive stool occult blood. Received 4 doses of IV Venofer and 3 doses of IM vitamin B12 supplementation; plan to discharge with oral ferrous sulfate 324mg BIDWM and oral B12 supplementation. Continue to monitor H&H and consider another transfusion for Hgb less than 7. Follow up with Dr Pelletier for Procrit injections every 2 weeks. (3) Acute on chronic kidney failure: Qualifiers: Acute renal failure type: unspecified Chronic kidney disease stage: stage 4 (severe) Qualified Code(s): N17.9 - Acute kidney failure, unspecified; N18.4 - Chronic kidney disease, stage 4 (severe) Code(s): N17.9 - Acute kidney failure, unspecified; N18.9 - Chronic kidney disease, unspecified Status: Chronic Assessment and Plan: Patient has acute on chronic renal insufficiency. Likely due to a combination of ARB and diuretic therapy and DM. Losartan is held and continue diuretic therapy given his lower extremity swelling. Cr gradually worsening over the last several months. Underwent renal biopsy 01/15 demonstrates advanced sclerotic changes due to diabetes. Continue monitoring renal function, urine output electrolytes. Appreciate nephrology recommendations. (4) Congestive heart failure: Qualifiers: Heart failure type: diastolic Heart failure chronicity: acute on chronic Qualified Code(s): I50.33 - Acute on chronic diastolic (congestive) heart failure Code(s): I50.9 - Heart failure, unspecified Status: Acute Assessment and Plan: Increased lower extremity swelling suspect acute on chronic diastolic CHF. No shortness of breath. Has been treated with Bumex and metolazone without much improvement on diuresis. Maintained on oral Lasix BID today. Continue to monitor I&O. Appreciate cardiology input. (5) Fever: Qualifiers: Fever type: unspecified Qualified Code(s): R50.9 - Fever, unspecified Code(s): R50.9 - Fever, unspecified Status: Acute Assessment and Plan: Resolved. Low-grade fever early in the stay; COVID negative, influenza negative. Completed 7-day course of antibiotic therapy 01/14 with cefepime and vancomycin for possible hospital-acquired pneumonia. Pneumococcal and Legionella urine antigens negative. Blood cultures negative. (6) Elevated troponin: Code(s): R77.8 - Other specified abnormalities of plasma proteins Status: Acute Assessment and Plan: Troponins mildly elevated with flat profile without chest pain. May be related to fluid overload. ACS not suspected. Appreciate cardiology input. Date of stress test earlier this year as an outpatient. Continue monitoring.
[2021-01-17] MEDS: INSULIN GLARGINE (*BKC) 100 UNITS/ML 10 UNITS SUB-Q (22:05)
[2021-01-17] MEDS: ACETAMINOPHEN 325 MG TABLET 650 MG PO (22:07)
[2021-01-17] MEDS: MELATONIN 3 MG TABLET PO (22:07)
[2021-01-17 22:15] LABS: Glucose Point of Care 224 mg/dl (65-105)
[2021-01-18] VITALS: PULSE 67
[2021-01-18 04:00] VITALS: PULSE 65
[2021-01-18 05:43] LABS: Hematocrit 26.1 % (42.0-52.0); Hemoglobin 7.8 g/dL (14.0-18.0)
[2021-01-18 05:55] VITALS: BP 128/79; PULSE 70; RESP 16; TEMP 36.4; O2SAT 99
[2021-01-18 06:10] LABS: Albumin Level 2.9 g/dL (3.5-5.1); Anion Gap 9 mmol/L (8-16); Blood Urea Nitrogen 88 mg/dL (9-20); Calcium 8.4 mg/dL (8.4-10.2); Carbon Dioxide 26 mmol/L (22-30); Chloride 101 mmol/L (98-107); Estimated CRCL calculation 31 ml/min; Estimated Glomerular Filt Rate 33; Glucose 189 mg/dL (75-110); Phosphorus 3.5 mg/dL (2.5-4.5); Potassium 3.3 mmol/L (3.4-5.0); Sodium 136 mmol/L (137-145)
[2021-01-18 08:00] VITALS: PULSE 75
[2021-01-18 08:07] LABS: Glucose Point of Care 187 mg/dl (65-105)
[2021-01-18] MEDS: POTASSIUM CHLORIDE 20 MEQ TABLET 40 MEQ PO (10:01)
[2021-01-18] MEDS: FERROUS SULFATE 324 MG TABLET PO (10:01)
[2021-01-18 10:02] VITALS: PULSE 81
[2021-01-18] MEDS: polyethylene glycoL 3350 17 GM POWD.PACK PO (10:02)
[2021-01-18] MEDS: CYANOCOBALAMIN 1,000 MCG TABLET 1000 MCG PO (10:02)
[2021-01-18] MEDS: PANTOPRAZOLE 40 MG TABLET PO (10:02)
[2021-01-18] MEDS: MAGNESIUM OXIDE 400 MG TABLET PO (10:02)
[2021-01-18] MEDS: carvediloL 12.5 MG TABLET PO (10:02)
[2021-01-18] MEDS: ATORVASTATIN 10 MG TABLET PO (10:02)
[2021-01-18] MEDS: FUROSEMIDE 40 MG TABLET PO (10:02)
--- NOTE | 2021-01-18 10:57 | PM.PNCARD ---
Progress Note: A&P Assessment and Plan (1) Congestive heart failure: Qualifiers: Heart failure chronicity: acute on chronic Heart failure type: diastolic Qualified Code(s): I50.33 - Acute on chronic diastolic (congestive) heart failure Code(s): I50.9 - Heart failure, unspecified Status: Acute Assessment and Plan: This is predominantly right-sided and diastolic acute on chronic. Continues to have moderate bilateral LE edema. Will give 1mg IV Bumex x1 today. Creatine stable. Continue to monitor daily BMP. (2) Elevated troponin: Code(s): R77.8 - Other specified abnormalities of plasma proteins Status: Acute Assessment and Plan: Flat, chronic, without associated ischemic changes on EKG, ischemic symptoms secondary to chronic renal failure consistent with a type 2 infarct not acute coronary syndrome. Negative stress test earlier this year as an outpatient in our office. no plans or indication for invasive ischemic assessment at this time. (3) LINDSEY (acute kidney injury): Code(s): N17.9 - Acute kidney failure, unspecified Status: Acute Assessment and Plan: Acute on chronic renal failure. Avoid nephrotoxic agents. Hold losartan. Caution with diuretics. Dr. Crouch assisting. Renal biopsy showed: - ACUTE TUBULAR INJURY. - ARTERIONEPHROSCLEROSIS. - ADVANCED DIABETIC GLOMERULOSCLEROSIS, CLASS IV (4) Anemia of chronic disease: Code(s): D63.8 - Anemia in other chronic diseases classified elsewhere Status: Acute Assessment and Plan: Multifactorial, acute on chronic. No clear clinical evidence for active bleed. H&H dropped overnight despite blood transfusion yesterday. Spoke with hospitalist about plan to c/s GI for poss. scope to identify possible source of bleeding. Resume Xarelto as there was no bleeding source found on endoscopy. (5) Atrial fibrillation: Code(s): I48.91 - Unspecified atrial fibrillation Status: Acute Assessment and Plan: Persistent, rate controlled, asymptomatic. May continue carvedilol. Xarelto resumed. See above. (6) Hypertension associated with diabetes: Code(s): E11.59 - Type 2 diabetes mellitus with other circulatory complications; I15.2 - Hypertension secondary to endocrine disorders Status: Acute Assessment and Plan: BP reasonably controlled on present regimen. (7) Pulmonary hypertension: Code(s): I27.20 - Pulmonary hypertension, unspecified Status: Acute Assessment and Plan: Moderate in severity RVSP 59 mm Hg. Patient claims apnea link performed previously do not see documented. He denies prior known history of KEV. per review records patient was previously utilizing BiPAP 17/03 in October. I would not be surprised if patient has significant KEV complicating management. Subjective Date/time seen: 01/18/21 10:57 Interval history: Cardiology follow up for chronic atrial fibrillation and LE edema. Date of service 01/11/2021: Patient feeling okay today. He is currently receiving a unit of blood. His is in the room and says that his swelling looks improved. No shortness of breath, chest pain, palpitations. Date of service 01/12/2021: He is feeling better today after receiving blood yesterday. He says he got up to the chair yesterday and had no difficulty with shortness of breath but he does have a lot of pain in his lower extremities. He thinks some of this is caused by his swelling but mostly it is joint pain. His Hgb dropped from 9.2 to 7.4 overnight. Date of service 01/13/2021: Feeling better. Still swollen but no chest pain or shortness of breath Date of service 01/14/2021: Continues to feel a bit better. He is scheduled for renal biopsy tomorrow. No chest pain, shortness breath. Swelling is better. Date of service 01/15/2021: He feels well today. Undergoing renal biopsy today. Plans for EGD either tomorrow or
--- NOTE | 2021-01-18 11:48 | P.PNNP_ITS ---
Progress Note: A&P Assessment and Plan (1) LINDSEY (acute kidney injury): Code(s): N17.9 - Acute kidney failure, unspecified Status: Acute Assessment and Plan: * renal ultrasound show no issues regarding acute kidney injury. There is a hemorrhagic cyst which needs to be further evaluated. * Urine electrolytes are Non pre renal. * Mild Proteinuria. * Immunofixation shows an abnormal band. * biopsy shows no paraprotein issue. just DM and 50% scarring, explaining his creat of 2. (2) Stage 3b chronic kidney disease: Code(s): N18.32 - Chronic kidney disease, stage 3b Status: Chronic Assessment and Plan: * based on kidney biopsy, I think this is probably a new baseline for him. (3) Anemia: Code(s): D64.9 - Anemia, unspecified Status: Acute Assessment and Plan: * long standing history * PRBC transfusion per protocol * due in part to iron and B12 deficiency * Hemoglobin stable in the sevens. * stool is guaiac positive. * Colonoscopy done * Getting iron per Dr. Pelletier (4) Hypertension: Code(s): I10 - Essential (primary) hypertension Status: Chronic Assessment and Plan: * Systolic blood pressure is well controlled. * He is on carvedilol (5) Fever: Qualifiers: Fever type: unspecified Qualified Code(s): R50.9 - Fever, unspecified Code(s): R50.9 - Fever, unspecified Status: Acute Assessment and Plan: * resolved (6) Bilateral edema of lower extremity: Code(s): R60.0 - Localized edema Status: Acute Assessment and Plan: * Etiology unclear. * Testing negative so far. * Probably sodium retention due to the kidneys. * on lasix 40 bid. (7) Diabetes: Code(s): E11.9 - Type 2 diabetes mellitus without complications Status: Chronic Assessment and Plan: * follow accuchecks * glycemic control Subjective Date/time seen: 01/18/21 11:48 Interval history: Mr. Yanez is feeling okay. No chest pain or shortness of breath. Eating okay. Exam Narrative: Exam Narrative: General: WD/WN male in NAD Heart: normal S1 and S2; IRRR; no rub or gallop Lungs: clear Abdomen: soft, nontender, nondistended, positive bowel sounds Extremities: 1-2+ edema, left greater than right Skin: No rash Or subcu nodules Objective Data Vital Signs Vital Signs: Vital Signs - 24 hr 01/17/21 12:00 01/17/21 14:00 01/17/21 16:00 Temperature 36.5 C Pulse Rate 80 69 64 Respiratory Rate 16 Blood Pressure 113/61 Pulse Oximetry 100 01/17/21 20:00 01/17/21 21:37 01/17/21 21:50 Temperature 36.6 C Pulse Rate 64 74 Respiratory Rate 16 18 Blood Pressure 129/63 Pulse Oximetry 100 100 99 01/17/21 22:07 01/18/21 00:00 01/18/21 04:00 Temperature Pulse Rate 74 67 65 Respiratory Rate Blood Pressure Pulse Oximetry 01/18/21 05:55 01/18/21 10:02 Temperature 36.4 C Pulse Rate 70 81 Respiratory Rate 16 Blood Pressure 128/79 Pulse Oximetry 99 Intake/Output Intake/Output: Intake & Output 01/15/21 01/16/21 01/17/21
--- NOTE | 2021-01-18 11:48 | PM.PNNEP ---
Progress Note: A&P Assessment and Plan (1) LINDSEY (acute kidney injury): Code(s): N17.9 - Acute kidney failure, unspecified Status: Acute Assessment and Plan: renal ultrasound show no issues regarding acute kidney injury. There is a hemorrhagic cyst which needs to be further evaluated. Urine electrolytes are Non pre renal. Mild Proteinuria. Immunofixation shows an abnormal band. biopsy shows no paraprotein issue. just DM and 50% scarring, explaining his creat of 2. (2) Stage 3b chronic kidney disease: Code(s): N18.32 - Chronic kidney disease, stage 3b Status: Chronic Assessment and Plan: based on kidney biopsy, I think this is probably a new baseline for him. (3) Anemia: Code(s): D64.9 - Anemia, unspecified Status: Acute Assessment and Plan: long standing history PRBC transfusion per protocol due in part to iron and B12 deficiency Hemoglobin stable in the sevens. stool is guaiac positive. Colonoscopy done Getting iron per Dr. Pelletier (4) Hypertension: Code(s): I10 - Essential (primary) hypertension Status: Chronic Assessment and Plan: Systolic blood pressure is well controlled. He is on carvedilol (5) Fever: Qualifiers: Fever type: unspecified Qualified Code(s): R50.9 - Fever, unspecified Code(s): R50.9 - Fever, unspecified Status: Acute Assessment and Plan: resolved (6) Bilateral edema of lower extremity: Code(s): R60.0 - Localized edema Status: Acute Assessment and Plan: Etiology unclear. Testing negative so far. Probably sodium retention due to the kidneys. on lasix 40 bid. (7) Diabetes: Code(s): E11.9 - Type 2 diabetes mellitus without complications Status: Chronic Assessment and Plan: follow accuchecks glycemic control Subjective Date/time seen: 01/18/21 11:48 Interval history: Mr. Yanez is feeling okay. No chest pain or shortness of breath. Eating okay. Exam Narrative: Exam Narrative: General: WD/WN male in NAD Heart: normal S1 and S2; IRRR; no rub or gallop Lungs: clear Abdomen: soft, nontender, nondistended, positive bowel sounds Extremities: 1-2+ edema, left greater than right Skin: No rash Or subcu nodules Objective Data Vital Signs Vital Signs: Vital Signs - 24 hr 01/17/21 12:00 01/17/21 14:00 01/17/21 16:00 Temperature 36.5 C Pulse Rate 80 69 64 Respiratory Rate 16 Blood Pressure 113/61 Pulse Oximetry 100 01/17/21 20:00 01/17/21 21:37 01/17/21 21:50 Temperature 36.6 C Pulse Rate 64 74 Respiratory Rate 16 18 Blood Pressure 129/63 Pulse Oximetry 100 100 99 01/17/21 22:07 01/18/21 00:00 01/18/21 04:00 Temperature Pulse Rate 74 67 65 Respiratory Rate Blood Pressure Pulse Oximetry 01/18/21 05:55 01/18/21 10:02 Temperature 36.4 C Pulse Rate 70 81 Respiratory Rate 16 Blood Pressure 128/79 Pulse Oximetry 99 Intake/Output Intake/Output: Intake & Output 01/15/21 01/16/21 01/17/21 01/18/21 23:59 23:59 23:59 23:59 Intake Total 1040 1790 1200 390 Output Total 1950 2500 2200 450 Balance -910 -710 -1000 -60 Meds/Results Medications: Active Medications Generic Name Dose Route Start Last Admin Trade Name Freq PRN Reason Stop Dose Admin Acetaminophen 650 mg 01/11/21 09:20 01/17/21 22:07 Acetaminophen 325 Mg Tablet PO 650 mg Q4H PRN Administration Mild Pain (1-3) or Fever Albuterol 2 puff 01/08/21 23:51 Albuterol Sulfate (*Sp) Aerosol 1 Puff INHALATION Q6HRT PRN Shortness Of Breath Atorvastatin Calcium 10 mg 01/09/21 09:00 01/18/21 10:02 Atorvastatin 10 Mg Tablet PO 10 mg DAILY CESAR Administration Bisacodyl 10 mg 01/12/21 12:45 Bisacodyl 10 Mg Suppository RECTAL Q24H PRN Constipation Carvedilol 12.5 mg 01/10/21 21:00 01/18/21 10:02 Carvedi
[2021-01-18 12:00] VITALS: PULSE 72
[2021-01-18 12:39] LABS: Glucose Point of Care 209 mg/dl (65-105)
--- NOTE | 2021-01-18 12:48 | PM.DS ---
DS: Admitting Diagnosis Admitting Diagnosis Admitting Diagnosis: Anemia, CHF DS: Discharge Diagnosis Discharge Diagnosis (1) Generalized muscle weakness: Code(s): M62.81 - Muscle weakness (generalized) Status: Acute Assessment and Plan: Date of Admission 01/08/21 Date of Discharge 01/18/21 Mr. Yanez is a 80yo M with anemia, CKD, CHF, type 2 diabetes who presented to the ED for evaluation of generalized weakness and swelling to GEORGE legs. He was treated for acute on chronic CHF exacerbation with the help of the cardiology service. His creatinine was elevated beyond his previous baseline and he was evaluated also by nephrology. He had a low hgb early in the admission and received 1 unit packed RBC transfusion 01/11. He was treated with iron and B12 supplementation for his anemia as outlined below. His xarelto was held due to decline in Hgb and he was evaluated by GI. EGD/colonoscopy 01/16 detailed below showed no obvious blood loss to explain the decline in Hgb. He was evaluated additionally by hematology who offered biweekly procrit injections after discharge. He has kidney nodules and he will benefit from establishing care with urology outpatient. He had renal biopsy per nephrology during this admission for evaluation of kidney failure as described below. Patient would really like to discharge home but he is still not walking. Several long discussions held with patient and family regarding the safety of his discharge planning and that it is our medical recommendation he discharge to SNF to get stronger before going home. He and his are agreeable. He is hemodynamically stable for discharge to SNF 01/18/21 with recommended follow ups outlined below. (2) Symptomatic anemia: Code(s): D64.9 - Anemia, unspecified Status: Acute Assessment and Plan: Patient has anemia of chronic disease, iron deficiency anemia, and B12 deficiency. On long-term anticoagulation with Xarelto which has been on hold during this workup, now resumed. Received 1 unit packed RBC transfusion 01/11. GI evaluation 01/16 demonstrates no obvious blood loss to explain his drop in Hgb. Some internal hemorrhoids or diverticulosis could have caused positive stool occult blood. Received 4 doses of IV Venofer and 3 doses of IM vitamin B12 supplementation; discharge with oral ferrous sulfate 324mg BIDWM and oral B12 supplementation. Follow up with Dr Pelletier for Procrit injections every 2 weeks. (3) Acute on chronic kidney failure: Qualifiers: Acute renal failure type: unspecified Chronic kidney disease stage: stage 4 (severe) Qualified Code(s): N17.9 - Acute kidney failure, unspecified; N18.4 - Chronic kidney disease, stage 4 (severe) Code(s): N17.9 - Acute kidney failure, unspecified; N18.9 - Chronic kidney disease, unspecified Status: Chronic Assessment and Plan: Patient has acute on chronic renal insufficiency. Likely due to a combination of ARB and diuretic therapy and DM. Losartan is held. Cr gradually worsening over the last several months. Underwent renal biopsy 01/15 demonstrates advanced sclerotic changes due to diabetes. Follow up with nephrology. (4) Congestive heart failure: Qualifiers: Heart failure chronicity: acute on chronic Heart failure type: diastolic Qualified Code(s): I50.33 - Acute on chronic diastolic (congestive) heart failure Code(s): I50.9 - Heart failure, unspecified Status: Acute Assessment and Plan: Increased lower extremity swelling suspect acute on chronic diastolic CHF. No shortness of breath. Has been treated with Bumex and metolazone, improved some. Follow up with cardiology. (5) Fever: Qualifiers: Fever type: unspecified Qualified Code(s): R50.9 - Fever, uns
[2021-01-18] MEDS: INSULIN ASPART (*BKC) 100 UNITS/ML SUB-Q (14:02)
== END 2021-01-18 14:59 | DRG 280 ==
LOC: ANHED 17:41 → ANHIMU 19:45 → ANH2MED 01-13 07:55 → ANHIMU 01-19 14:03
PROVIDERS: Emergency Medicine; Internal Medicine; Internal Medicine Gastroenterology; Internal Medicine Hematology & Oncology; Internal Medicine Nephrology; Nurse Practitioner; Physician Assistant; Admitting Provider Family Medicine; Emergency Provider Emergency Medicine; PCP Family Medicine; Visit Provider Physician Assistant
PROC: 0DJD8ZZ Inspection of Lower Intestinal Tract, Via Natural or Artificial Opening Endoscopic (ICD-10-PCS; CPT 45378; principal; 2021-01-16 13:00)
DX: I13.0 Hypertensive heart and chronic kidney disease with heart failure and stage 1 through stage 4 chronic kidney disease, or unspecified chronic kidney disease (principal); J18.9 Pneumonia, unspecified organism; I21.A1 Myocardial infarction type 2; I50.33 Acute on chronic diastolic (congestive) heart failure; K57.31 Diverticulosis of large intestine without perforation or abscess with bleeding; N17.9 Acute kidney failure, unspecified; I48.19 Other persistent atrial fibrillation; N18.4 Chronic kidney disease, stage 4 (severe); Z20.822 Contact with and (suspected) exposure to COVID-19; T50.2X5A Adverse effect of carbonic-anhydrase inhibitors, benzothiadiazides and other diuretics, initial encounter; E11.22 Type 2 diabetes mellitus with diabetic chronic kidney disease; D51.9 Vitamin B12 deficiency anemia, unspecified; E11.59 Type 2 diabetes mellitus with other circulatory complications; I15.2 Hypertension secondary to endocrine disorders; I48.91 Unspecified atrial fibrillation; D50.9 Iron deficiency anemia, unspecified; N28.89 Other specified disorders of kidney and ureter; N28.1 Cyst of kidney, acquired; K64.0 First degree hemorrhoids; E78.5 Hyperlipidemia, unspecified; D51.3 Other dietary vitamin B12 deficiency anemia; Z96.653 Presence of artificial knee joint, bilateral; G47.33 Obstructive sleep apnea (adult) (pediatric); D63.1 Anemia in chronic kidney disease; E87.6 Hypokalemia; E83.42 Hypomagnesemia; M25.561 Pain in right knee; M25.562 Pain in left knee; N40.0 Benign prostatic hyperplasia without lower urinary tract symptoms; Z87.891 Personal history of nicotine dependence; Z79.01 Long term (current) use of anticoagulants; Z98.42 Cataract extraction status, left eye; Z98.41 Cataract extraction status, right eye; E66.9 Obesity, unspecified; Z68.37 Body mass index [BMI] 37.0-37.9, adult
CPT/HCPCS: 36415; 36430; 50200; 71046; 74176; 76775; 76942; 80048; 80069; 80202; 81001; 82247; 82248; 82274; 82570; 82607; 82728; 82746; 82784; 82948; 83010; 83036; 83540; 83550; 83605; 83615; 83735; 83880; 83883; 84132; 84155; 84156; 84165; 84166; 84238; 84300; 84443; 84466; 84484; 85014; 85018; 85025; 85027; 85046; 85610; 85730; 86140; 86334; 86850; 86860; 86870; 86880; 86900; 86901; 86902; 86905; 86922; 87040; 87804; 88300; 88305; 88313; 88329; 88346; 88348; 88350; 93005; 93970; 96361; 96365; 96366; 96367; 96372; 96375; 96376; 97110; 97162; 97165; 97530; 97535; 99285; A9270; C9113; C9803; G0378; J0692; J1756; J1815; J1940; J2704; J3370; J3420; J3475; J3480; J7040; J7050; J7120; P9016; P9047; U0003; U0005

== ENCOUNTER 2021-01-29 06:38 | Outpatient (RCR) | payer OTHER, MEDICARE, SELFPAY ==
[2021-01-26 07:41] LABS: Hematocrit 22.3 % (42.0-52.0)
[2021-01-26 07:43] LABS: Hemoglobin 6.8 g/dL (14.0-18.0)
--- NOTE | 2021-01-26 11:05 | PC.NURSE ---
Pt arrived at 0730 this AM, transferred into recliner with minimal assist. Blood product arrived to blood bank from outside center - IV started to left forearm. After completeing typpe and screen - blood bank reported the need for further testing of the blood product. Blood will not be ready for transfusing today. Pt and informed. Additional samples of blood sent to blood bank. IV discontinued - catheter intact. Pt transferred back to wheelchair with 2 person assist. Pt c/o left leg pain and weakness when attempting to stand with minimal assist. Geovanny transferred pt back to [facility] with . Pt discharged at 1030.
[2021-01-29] VITALS (11 sets, daily range): BP systolic 113–151; BP diastolic 65–83; PULSE 61–81; RESP 14–17; TEMP 36.1–36.4; O2SAT 95–98
[2021-01-29 08:39] LABS: Hematocrit 23.5 % (42.0-52.0)
[2021-01-29] MEDS: FUROSEMIDE INJ 40 MG/4 ML VIAL 20 MG IV PUSH (12:24)
--- NOTE | 2021-01-29 16:49 | PC.NURSE ---
Blood administration of 2 units or PRBC completed. Pt tolerated without any signs or symptoms of transfusion reaction. IV d/c'd with catheter intact, drsg applied. No redness or swelling at the site. Discharge instructions reviewed with pt and with stated understanding. Pt discharged via wheelchair to mobile van to return to [facility]. with patient.
== END 2021-04-26 23:59 | disposition home or self-care (01) ==
LOC: ANHCPCTRAN 06:38
PROVIDERS: PCP Family Medicine; Visit Provider Family Medicine
DX: D64.9 Anemia, unspecified (principal)
CPT/HCPCS: 36415; 36430; 85014; 85018; 86850; 86860; 86870; 86880; 86900; 86901; 86902; 86922; 96374; J1940; J7050; P9016

== ENCOUNTER 2021-02-08 10:16 | Inpatient (IN) | payer MEDICARE, SELFPAY ==
[2021-02-08] VITALS (7 sets, daily range): BP systolic 130–151; BP diastolic 72–84; PULSE 72–93; RESP 14–18; TEMP 36.6–37.3; O2SAT 95–98; BMI 38.5
--- NOTE | ~2021-02-08 | XR_ITS ---
XR abdomen/kub 1V 02/11/2021 14:48 INDICATION: Diarrhea. Hypertension. TECHNIQUE: KUB COMPARISON: None FINDINGS: Bowel gas pattern is nonspecific. No obstruction. There are spinal stimulator leads overlyi ng the thoracic spine. Moderate thoracic and lumbar spondylosis. There is no evidence of free air, ma ss, organomegaly, ascites or obstruction. No abnormal calculi are seen. The bones appear intact. IMPRESSION: 1: No acute abdominal abnormality identified. Reviewed, dictated and finalized at location A.
--- NOTE | ~2021-02-08 | XR_ITS ---
EXAMINATION: XR chest 1V portable EXAM DATE: 02/08/2021 11:11 INDICATION: Shortness of breath. TECHNIQUE: Portable AP frontal chest x-ray was obtained. Comparison is made to prior examination from 01/09/2020. FINDINGS: There is cardiomegaly and pulmonary vascular congestion. Some small regions of linear atele ctasis. No confluent consolidation, pneumothorax or pleural effusion suspected. There are mild bony d egenerative changes. IMPRESSION: Cardiomegaly, congestion. Reviewed, dictated and finalized at location B. IMPRESSION: Cardiomegaly, congestion.
--- NOTE | ~2021-02-08 | US_ITS ---
EXAMINATION: US renal BI DATE: 02/11/2021 11:21 INDICATION: Decreased kidney function. TECHNIQUE: Multiple ultrasound grayscale images of the kidneys were obtained. COMPARISON: CT abdomen and pelvis 01/13/2021 FINDINGS: The right kidney measures 10.5 x 6.7 x 5.3 cm. The left kidney measures 10.3 x 6.1 x 6.7 cm. The kidn eys demonstrate normal parenchymal echogenicity. There are cysts in the kidneys measuring up to 3.1 c m on the right. There is no hydronephrosis. The bladder is normal. IMPRESSION: 1. Normal kidney sizes. No hydronephrosis. Reviewed, dictated and finalized at location A.
--- NOTE | 2021-02-08 10:27 | ECG_ITS ---
Measurements Intervals [place] Rate: 83 P: -5 DE: 364 QRS: -3 QRSD: 100 T: 186 QT: 390 QTc: 458 Interpretive Statements ATRIAL FIBRILLATION DELAYED PRECORDIAL R/S TRANSITION ST-T WAVE ABNORMALITY IN ANTEROLAT/HIGH LAT LEADS- CONSIDER ISCHEMIA BASELINE ARTIFACT- II, III, AVR, AVL, AVF, V1-V6 ABNORMAL ECG Electronically Signed On 02-08-2021 11:33:20 CDT by Neo Nieto D.O.
[2021-02-08 11:21] LABS: Basophils Absolute Auto 0.1 K/mm3 (0.0-0.1); Basophils Percent Auto 0.6 % (0.2-1.2); Eosinophils Absolute Auto 0.1 K/mm3 (0-0.3); Eosinophils Percent Auto 0.6 % (0-4.4); Hematocrit 30.4 % (42.0-52.0); Hemoglobin 9.1 g/dL (14.0-18.0); Immature Granulocyte Absolute 0.06 K/mm3 (0.00-0.031); Immature Granulocyte Percent A 0.7 % (0-0.5); Lymphocytes Absolute Auto 1.19 K/mm3 (0.9-3.2); Lymphocytes Percent Auto 13.4 % (18.3-44.2); Mean Corpuscular HGB Conc 29.9 g/dl (32-36); Mean Corpuscular Hemoglobin 26.5 pg (26-34); Mean Corpuscular Volume 88.4 fl (80-100); Mean Platelet Volume 10.1 fl (7.4-10.4); Monocytes Absolute Auto 0.9 K/mm3 (0.1-0.6); Monocytes Percent Auto 10.4 % (2.6-8.5); Neutrophils Absolute Auto 6.6 K/mm3 (1.3-6.7); Neutrophils Percent Auto 74.3 % (45.5-73.1); Platelet Count Result 227 k/mm3 (150-375); Red Blood Count 3.44 M/mm3 (4.6-6.20); Red Cell Distribution Width 18.2 % (11.5-14.5); White Blood Count 8.9 K/mm3 (4.5-10.0)
[2021-02-08 11:29] LABS: Alanine Aminotransferase 21 U/L (4-50); Alkaline Phosphatase 107 U/L (38-126); Anion Gap 5 mmol/L (8-16); Aspartate Amino Transferase 31 U/L (17-59); Bilirubin,Total 0.9 mg/dL (0.2-1.3); Blood Urea Nitrogen 57 mg/dL (9-20); Calcium 8.8 mg/dL (8.4-10.2); Carbon Dioxide 27 mmol/L (22-30); Chloride 108 mmol/L (98-107); Estimated CRCL calculation 31 ml/min; Estimated Glomerular Filt Rate 33; Glucose 138 mg/dL (75-110); Magnesium 1.5 mg/dL (1.6-2.3); Potassium 3.3 mmol/L (3.4-5.0); Sodium 140 mmol/L (137-145)
[2021-02-08 11:35] LABS: INR 2.4; Prothrombin Time 25.9 Seconds (11.1-14.7)
[2021-02-08 11:36] LABS: Partial Thromboplastin Time 47.3 SECONDS (22.3-36.8)
[2021-02-08 11:53] LABS: NT Pro B Type Natriuretic Pept 15400 pg/mL (5-100); Troponin I 0.053 ng/mL (0.000-0.034)
[2021-02-08 11:58] LABS: Hypochromasia 1+ (NORMAL); Platelet Estimate Adequate (Adequate); Poikilocytosis 1+ (NORMAL)
[2021-02-08 12:02] LABS: Add Urine Microscopic? NO; Appearance Urine Clear (Clear); Bilirubin Urine Negative (Negative); Blood Urine Negative (Negative); Color Urine Yellow (Yellow); Glucose Urine UA Negative (Negative); Ketones Urine Negative (Negative); Leukocyte Esterase Ur Negative LEU/UL (Negative); Nitrate Urine Negative (Negative); Protein Urine Negative (Negative); Specific Grav Ur 1.011 (1.001-1.035); Urobilinogen Urine Negative mg/dL (<2.0)
[2021-02-08] MEDS: MAGNESIUM SULF 2 GM/WATER 50ML 2 GM/50 ML BAG IVPB (12:41)
[2021-02-08] MEDS: FUROSEMIDE INJ 40 MG/4 ML VIAL IV PUSH (12:41)
--- NOTE | 2021-02-08 13:48 | ED.GENADULT ---
HPI - General Adult General Chief complaint: Recheck/Abnormal Lab/Rx Stated complaint: Fluid volume Time Seen by Provider: 02/08/21 10:29 Source: patient, RN notes reviewed, old records reviewed and other Mode of arrival: EMS Limitations: no limitations History of Present Illness HPI narrative: Patient is a 80-year-old male who presents to emergency department for evaluation of concern for fluid overload with history of congestive heart failure 40 pound gain noted on follow-up visit with cardiology today patient on arrival to the ER denies any pain specifically no chest pain or dyspnea and is resting in the bed in no distress patient notes that he has been compliant with his medications and is currently in rehab with history of heart disease and multiple other comorbidities denies any recent infection or illness Related Data Home Medications Medication Instructions Recorded Confirmed Victoza 2-Vidal 1.2 mg SUBCUT DAILY 10/08/20 01/08/21 pioglitazone 45 mg PO DAILY 10/08/20 01/08/21 Allergies Allergy/AdvReac Type Severity Reaction Status Date / Time No Known Allergies Verified 02/08/21 10:33 Review of Systems Review of Systems: All systems reviewed & are unremarkable except as noted in HPI and below PMFSH Past Medical History Medical History Atrial fibrillation B12 deficiency anemia BPH (benign prostatic hyperplasia) Chronic anticoagulation Congestive heart failure Echocardiogram October 2020: Indeterminate diastolic function, EF 65-70%, mild right ventricular enlargement, mildly increased left ventricular wall thickness, mild left atrial enlargement, mild mitral valve regurgitation, mild tricuspid valve regurgitation, moderate pulmonary hypertension with RVSP 59, 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 Essential (primary) hypertension Hyperlipidemia associated with type 2 diabetes mellitus Hypertension associated with diabetes Iron deficiency anemia Mixed hyperlipidemia Umbilical hernia Surgical History Surgical History Normal colonoscopy (~2007) Status post bilateral knee replacements Status post cataract extraction of both eyes with insertion of intraocular lens Family History Family History Father Cerebrovascular accident Mother Hypertension Sibling Hypertension Kidney disease, chronic, end stage on dialysis Social History Social History Social History: He lives in [place] with his of 57 years. 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 They have 1 daughter and 1 son who are healthy. Smoking packs per day: 0.5 Smoking cigarettes per day: 10.0 Years smoked: 3 Smoking pack-years: 1.50 Smoking status: Former smoker Tobacco type: cigarettes Second hand tobacco smoke exposure: No Smoking end date: 08/04/65 Alcohol intake: never Substance use: never Substance use type: does not use Gender identity (if verbalized by the patient): Male Spiritual care concerns: Yes (Jakub is pentacostal) Exam Narrative: Exam Narrative: GENERAL: Chronically ill-appearing, obese, and in no acute distress. HEAD: Normocephalic, atraumatic. EYES: PERRLA and EOMI. ENT: Nares clear, no rhinorrhea or epistaxis. Mucous membranes moist. NECK: Supple. No adenopathy or masses. No carotid bruits or JVD CHEST: Diminished on auscultation. No respiratory distress. No wheezes rales or rhonchi HEART: Regular rate and rhythm. No murmur heard. Normal peripheral pulses. ABDOMEN: Soft, nontender, nondistended EXTREMITIES: Normal range of motion. 4+ edema lower extremities SKIN: Warm, dry, no rash. NEURO: No focal deficits. Alert and oriented x3. Cranial nerves II through XII grossly intact PSYCH: Normal mood and affect.
[2021-02-08 14:48] LABS: Troponin I 0.052 ng/mL (0.000-0.034)
--- NOTE | 2021-02-08 15:12 | ADMGEN ---
This patient, Khalif Yanez, was admitted to IMU Room 204-01. Patient/family oriented to hospital policies and general routines including ID bracelet, bed and alarms, visiting hours, pain management, procedures, bathroom and other care routines, personal items, smoking policy, room service/diet, and visiting hours. Information on how to activate the Rapid Response Team has been discussed. Patient/Family are encouraged to report perceived risks to care and to ask questions if they do not understand what they are told or what they should do.
--- NOTE | 2021-02-08 17:42 | PM.CNCAR ---
Assessment and Plan Assessment and plan (1) Bilateral edema of lower extremity: Code(s): R60.0 - Localized edema Status: Acute Assessment and Plan: Severe lower extremity edema secondary to heart failure and chronic venous insufficiency. (2) Acute on chronic diastolic CHF (congestive heart failure): Code(s): I50.33 - Acute on chronic diastolic (congestive) heart failure Status: Acute Assessment and Plan: Acute on chronic diastolic heart failure, mostly right-sided , but does have some left-sided CHF as well. Furosemide 40 mg b.i.d. does not appear to be enough diuretic. History of pulmonary hypertension and right atrial and ventricular enlargement. Does not look like he has had an Apnea Link yet. Received 1 dose of IV furosemide 40 mg in the emergency room with not much response Seems like metolazone 5 mg q.d. plus Bumex 1 mg q.8 hours seemed to work last time; will switch to that. (3) Atrial fibrillation: Code(s): I48.91 - Unspecified atrial fibrillation Status: Acute Assessment and Plan: Persistent atrial fibrillation, rate controlled, back on Xarelto. Previously had problems with anemia but that appears stable now. (4) CKD stage 3 secondary to diabetes: Code(s): E11.22 - Type 2 diabetes mellitus with diabetic chronic kidney disease; N18.30 - Chronic kidney disease, stage 3 unspecified Status: Acute Assessment and Plan: Check daily BMP He is hypokalemic and I will provide extra potassium. (5) Excessive daytime sleepiness: Code(s): G47.19 - Other hypersomnia Status: Acute Assessment and Plan: check apnea link History of Present Illness History of Present Illness Consult date/time: 02/08/21 17:42 Reason For Visit: chf exacerbation Narrative: Date of service 02/08/2021: Khalif Yanez This 80-year-old male whom we were asked to see at the request of the hospitalist for our advice and opinion regarding his edema and diastolic heart failure in consultation. The patient presented with acute diastolic heart failure and new onset atrial fibrillation in October 2020, taking furosemide 40 mg + HCTZ daily. He was diuresed and started on Xarelto. He was readmitted with acute on chronic diastolic heart failure, lower extremity edema and acute renal failure on January 08. He was anemic and received 1 unit of pack cells and his Xarelto was held. Losartan was held and he had a renal biopsy which showed CKD secondary to diabetes. He was diuresed with Bumex and metolazone and discharged to [facility] on Furosemide 40 mg b.i.d. + HCTZ. He was seen by Dr. Medina today with massive lower extremity edema having gained 34 lb since his last visit with Dr. Medina in October. ( He has gained 6 kg since discharge in January. ) Patient date does not notice that he has progressive edema which is described as 1 to 2+ on discharge in January. he denies any PND orthopnea. He has been able to ambulate a little with physical therapy and denies MONROE. States that he is taking his furosemide 40 mg b.i.d., following a low-sodium diet and has reduced the amount of fluids he drinks. He has no known sleep apnea, snores a little, and has excessive daytime sleepiness. Review of Systems Constitutional: Constitutional: Reports fatigue Eyes: Eyes: Reports no additional eye complaints ENT: Denies epistaxis Cardiovascular: Cardiovascular: Denies chest pain, Reports pedal edema, Reports leg edema and Denies lightheadedness Respiratory: Respiratory: Denies hemoptysis, Denies dyspnea and Denies dyspnea on exertion Gastrointestinal: Gastrointestinal: Denies abdominal pain, Denies hematochezia and Denies constipation Genitourinary: Genitourinary: Denies hematuria and Den
[2021-02-08] MEDS: POTASSIUM CHLORIDE 20 MEQ TABLET 40 MEQ PO (18:38)
[2021-02-08 18:51] LABS: Troponin I 0.054 ng/mL (0.000-0.034)
[2021-02-08 20:12] LABS: Glucose Point of Care 154 mg/dl (65-105)
[2021-02-08] MEDS: BUMETANIDE INJ 1 MG/4 ML VIAL IV PUSH (21:54)
[2021-02-09] VITALS (9 sets, daily range): BP systolic 112–142; BP diastolic 54–70; PULSE 77–90; RESP 16–20; TEMP 36.4–37.4; O2SAT 96–98; BMI 38.8
[2021-02-09] MEDS: ACETAMINOPHEN 325 MG TABLET 650 MG PO (02:07)
--- NOTE | 2021-02-09 02:35 | PM.IMHP ---
H&P: HPI History of Present Illness Date/Time: 02/09/21 02:35 Chief Complaint: LEG SWELLING Narrative: THIS IS A 80-YEAR-OLD MALE WITH PAST MEDICAL HISTORY SIGNIFICANT FOR DIASTOLIC HEART FAILURE, CHRONIC KIDNEY DISEASE, TYPE 2 DIABETES MELLITUS, SLEEP APNEA. PATIENT WAS BROUGHT TO THE EMERGENCY ROOM DUE TO WORSENING BILATERAL LOWER EXTREMITY EDEMA. PATIENT HAS BEEN RESIDING AT [facility] HER HE WAS DISCHARGED AFTER HIS LAST ADMISSION TO THE HOSPITAL. PATIENT STATES THAT HE OTHER THAN HAVING INCREASED BILATERAL LOWER EXTREMITY EDEMA HE HAS BEEN HIT HIS USUAL DENIES ANY SHORTNESS OF BREATH ANY PND OR ORTHOPNEA HAS BEEN ABLE TO LAY FLAT IN THE BED. HE DENIES ANY COUGH ANY SPUTUM PRODUCTION , SHORTNESS OF BREATH. PRELIMINARY WORKUP WAS SIGNIFICANT FOR ELEVATED BNP, CHEST X-RAY WITH CONGESTIVE CHANGES.BMP WAS SIGNIFICANT FOR ELEVATED BUN AND CREATININE AND A SLIGHTLY ELEVATED TROPONINS. Review of Systems Review of Systems: Narrative: WORSENING BILATERAL LOWER EXTREMITY SWELLING Constitutional: Constitutional: Denies chills, Denies fever(s), Reports weakness and Reports weight gain Eyes: Eyes: Denies change in vision ENT: Denies nasal congestion, Denies nasal discharge and Denies nasal obstruction Cardiovascular: Cardiovascular: Denies chest pain, Denies irregular heart rhythm, Reports leg edema, Denies lightheadedness, Denies radiating jaw, neck or arm pain, Denies palpitations, Denies dyspnea and Denies orthopnea Respiratory: Respiratory: Reports no additional respiratory complaints Gastrointestinal: Gastrointestinal: Reports no additional gastrointestinal complaints Genitourinary: Genitourinary: Reports no additional male genitourinary complaints Musculoskeletal: Comments: BILATERAL LOWER EXTREMITY SWELLING Integumentary/Breasts: Skin/Breast: Reports system reviewed and no additional complaints, except as docu Neurologic: Reports system reviewed and no additional complaints, except as documented Psychiatric: Psychiatric: Reports no additional psychiatric complaints Endocrine: Endocrine: Reports no additional endocrine complaints Hematologic/Lymphatic: Hematologic/Lymphatic: Reports no additional hematologic/lymphatic complaints Allergic/Immunologic: Allergic/Immunologic: Reports no additional allergic/immunologic complaints [facility] Past Medical History Medical History (Updated 02/09/21 @ 03:09 by Galilea De La Cruz MD) Atrial fibrillation B12 deficiency anemia BPH (benign prostatic hyperplasia) Chronic anticoagulation CKD stage 3 secondary to diabetes Congestive heart failure Echocardiogram October 2020: Indeterminate diastolic function, EF 65-70%, mild right ventricular enlargement, mildly increased left ventricular wall thickness, mild left atrial enlargement, mild mitral valve regurgitation, mild tricuspid valve regurgitation, moderate pulmonary hypertension with RVSP 59, 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 Essential (primary) hypertension Hyperlipidemia associated with type 2 diabetes mellitus Hypertension associated with diabetes Iron deficiency anemia Mixed hyperlipidemia Umbilical hernia Surgical History Surgical History Normal colonoscopy (~2007) Status post bilateral knee replacements Status post cataract extraction of both eyes with insertion of intraocular lens Family History Family History Father Cerebrovascular accident Mother Hypertension Sibling Hypertension Kidney disease, chronic, end stage on dialysis Social History Social History Social History: He lives in [place] with his of 57 years. 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 They have 1 daughter and 1 son who are healthy. Smoking packs per day: 0.5 Smoking cigarettes per day: 10.0 Years smoked
[2021-02-09] MEDS: BUMETANIDE INJ 1 MG/4 ML VIAL IV PUSH ×3 (05:37→20:48)
[2021-02-09 06:53] LABS: Anion Gap 9 mmol/L (8-16); Blood Urea Nitrogen 52 mg/dL (9-20); Calcium 8.4 mg/dL (8.4-10.2); Carbon Dioxide 24 mmol/L (22-30); Chloride 106 mmol/L (98-107); Estimated CRCL calculation 28 ml/min; Estimated Glomerular Filt Rate 29; Glucose 133 mg/dL (75-110); Sodium 139 mmol/L (137-145)
--- NOTE | 2021-02-09 09:15 | PM.IMPN ---
Progress Note: A&P Assessment and Plan (1) Acute on chronic diastolic CHF (congestive heart failure): Code(s): I50.33 - Acute on chronic diastolic (congestive) heart failure Status: Acute Assessment and Plan: Currently on IV Bumex and metolazone. Potassium replacement also has been ordered. Dick hose in place. Negative fluid balance since admission. Echo in October 2020 showing EF 65-70% with indeterminate diastolic function, mildly enlarged RV and moderate pulmonary HTN with moderate pulmonic regurgitation. Consider that this is more right sided failure. Monitor renal function closely to avoid hypoperfusion of his kidneys. (2) Elevated troponin: Code(s): R77.8 - Other specified abnormalities of plasma proteins Status: Acute Assessment and Plan: Troponin mildly elevated at 0.054 but flat. No ischemic symptoms. EKG showing ST T wave changes but appear to be more chronic. Elevated troponins consistent with nonischemic myocardial injury related to his CHF. (3) Atrial fibrillation: Code(s): I48.91 - Unspecified atrial fibrillation Status: Acute Assessment and Plan: Patient with chronic Atrial fibrillation. He is rate controlled with Coreg which has been continued. Continue Xarelto for anticoagulation. (4) Stage 3b chronic kidney disease: Code(s): N18.32 - Chronic kidney disease, stage 3b Status: Chronic Assessment and Plan: BUN 57 and creatinine 2.3 on admission. this is close to his baseline. With diuretics however, BUN is now 52 with a creatinine 2.6. Patient may be preload dependent. May need a slowed diuresis. follow closely. (5) Pulmonary hypertension: Code(s): I27.20 - Pulmonary hypertension, unspecified Status: Acute Assessment and Plan: Patient with known pulmonary hypertension. Apnea link performed last night showing AHI of 25 in RI of 26. Will discuss with patient. Will see if he will agree to auto NIV. He agrees to try NIV tonight but seems skeptical. (6) Excessive daytime sleepiness: Code(s): G47.19 - Other hypersomnia Status: Acute Assessment and Plan: No hx of KEV. As above. (7) Diabetes: Code(s): E11.9 - Type 2 diabetes mellitus without complications Status: Chronic Assessment and Plan: The patient's blood glucose was reviewed on 02/09. Will start AccuCheks covering with sliding scale. Hypoglycemia protocol to be available as needed. Subjective Date/time seen: 02/09/21 09:15 Interval history: 80yo male with cAFib, dCHF and DM here for lower extremity edema. Patient denies any shortness of breath. Denies chest pain. Nausea or vomiting. No abdominal pain. He did have some loose stools overnight. Exam Narrative: Exam Narrative: AF 98.4 142/70 90 20 98% ra Gen - NARD Lying semi recumbent bed Chest - CTA bilaterally, nml RR CV - irregularly irregular. S1-S2. Telemetry showing AFib with controlled rate PVCs. Abd - Soft. Obese. Nontender. Ext - Thigh-high Dick hose in place. 2-3+ pitting edema bilateral lower extremities Psych - Nml mood and affect Skin - Warm and dry Objective Data Vital Signs Vital Signs: Vital Signs - 24 hr 02/08/21 10:26 02/08/21 14:32 02/08/21 14:59 Temperature 98 F 98 F Pulse Rate 75 72 80 Respiratory Rate 14 18 17 Blood Pressure 146/84 H 137/77 151/77 H Pulse Oximetry 98 96 98 02/08/21 16:00 02/08/21 18:00 02/08/21 20:00 Temperature 99.1 F Pulse Rate 93 80 90 Respiratory Rate 16 Blood Pressure 130/72 Pulse Oximetry 95 02/08/21 22:00 02/09/21 00:00 02/09/21 04:00 Temperature 99.4 F 98.1 F Pulse Rate 87 80 85 Respiratory Rate 16 16 Blood Pressure 128/68 112/55 L Pulse Oximetry 97 98 02/09/21 06:00 02/09/21 09:00 Temperature 98.4 F Pulse Rate 90 Respiratory Rate 20 Blood Pressure 142/70 H Pulse Oximetry 96 98 Intake/Output Intake/Output: Intake & Outp
[2021-02-09] MEDS: PANTOPRAZOLE 40 MG TABLET PO (09:26)
[2021-02-09] MEDS: ATORVASTATIN 10 MG TABLET PO (09:27)
[2021-02-09] MEDS: MAGNESIUM OXIDE 400 MG TABLET PO (09:27)
[2021-02-09] MEDS: carvediloL 12.5 MG TABLET PO ×2 (09:27→20:41)
[2021-02-09] MEDS: metOLazone 5 MG TABLET PO (09:27)
[2021-02-09] MEDS: POTASSIUM CHLORIDE 20 MEQ TABLET.ER PO ×2 (09:27→17:27)
[2021-02-09] MEDS: FERROUS SULFATE 324 MG TABLET PO ×2 (09:27→17:26)
[2021-02-09] MEDS: CYANOCOBALAMIN 1,000 MCG TABLET 1000 MCG PO (09:27)
[2021-02-09 12:48] LABS: Glucose Point of Care 140 mg/dl (65-105)
--- NOTE | 2021-02-09 12:56 | PC.NURSE ---
This patient, Khalif Yanez, was transferred to [facility] on 02/09/21 at 1256. Personal belongings sent with patient. Report given to CARMEN Myrick. Appropriate documentation sent with patient.
--- NOTE | 2021-02-09 13:00 | PC.NURSE ---
This patient, Khalif Yanez, was received from [facility] on 02/09/21 at 1300. Patient/family oriented to unit policies and routines
--- NOTE | 2021-02-09 14:38 | PCNSR ---
On 02/09/21, the student, [Ciara Molina ], provided care and completed [facility] documentation on this patient. I have reviewed the student's documentation and agree with the findings.
--- NOTE | 2021-02-09 16:12 | PM.PNCARD ---
Progress Note: A&P Assessment and Plan (1) Bilateral edema of lower extremity: Code(s): R60.0 - Localized edema Status: Acute Assessment and Plan: Severe lower extremity edema secondary to heart failure and chronic venous insufficiency. (2) Acute on chronic diastolic CHF (congestive heart failure): Code(s): I50.33 - Acute on chronic diastolic (congestive) heart failure Status: Acute Assessment and Plan: Acute on chronic diastolic heart failure, mostly right-sided , but does have some left-sided CHF as well. Furosemide 40 mg b.i.d. does not appear to be enough diuretic. Received 1 dose of IV furosemide 40 mg in the emergency room with not much response Transitioned to metolazone 5 mg q.d. plus Bumex 1 mg q.8 Still has significant lower extremity edema. No shortness of breath, no crackles. Continue with current diuretic regimen. (3) Atrial fibrillation: Code(s): I48.91 - Unspecified atrial fibrillation Status: Acute Assessment and Plan: Persistent atrial fibrillation, rate controlled, back on Xarelto. Previously had problems with anemia but that appears stable now. (4) CKD stage 3 secondary to diabetes: Code(s): E11.22 - Type 2 diabetes mellitus with diabetic chronic kidney disease; N18.30 - Chronic kidney disease, stage 3 unspecified Status: Acute Assessment and Plan: Check daily BMP He is hypokalemic and I will provide extra potassium. (5) Excessive daytime sleepiness: Code(s): G47.19 - Other hypersomnia Status: Acute Assessment and Plan: Apnea link showed AHI of 25. Patient aware and CPAP has been discussed - will start tonight Subjective Date/time seen: 02/09/21 16:12 Interval history: cardiology follow-up for CHF date of service 02/09/2021: Patient states that he is feeling well today. He denies shortness of breath. He says that he has less pain in his lower extremities since being diuresed a little bit in adding compression stockings. Review of Systems Constitutional: Constitutional: Reports fatigue Eyes: Eyes: Reports no additional eye complaints ENT: Denies epistaxis Cardiovascular: Cardiovascular: Denies chest pain, Reports pedal edema, Reports leg edema, Denies lightheadedness, Denies dyspnea and Denies dyspnea on exertion Respiratory: Respiratory: Denies hemoptysis, Denies dyspnea and Denies dyspnea on exertion Gastrointestinal: Gastrointestinal: Denies abdominal pain, Denies hematochezia and Denies constipation Genitourinary: Genitourinary: Denies hematuria and Denies dysuria Musculoskeletal: Musculoskeletal: Reports no additional musculoskeletal complaints Integumentary/Breasts: Skin/Breast: Denies wounds Neurologic: Denies behavioral changes and Denies confusion Psychiatric: Psychiatric: Denies behavioral changes and Denies confusion Endocrine: Endocrine: Reports fatigue Exam Narrative: Exam Narrative: Pleasant older man sitting in the chair Const: General: no acute distress; No confusion Orientation/consciousness: No confusion HENMT: General nose exam: no epistaxis Mouth: Yes moist mucous membranes Eyes: EOM: EOMs intact bilaterally Neck: Neck: supple and no JVD Thyroid: thyroid normal Carotids: no bruits Lymphatic: lymphadenopathy not noted Resp: Effort & Inspection: normal respiratory effort Auscultation: clear to auscultation bilaterally Cardio: Rate: regular rate Rhythm: abnormal rhythm irregularly irregular Heart sounds: Murmur heart sound present systolic I/ GI: Inspection: distended Auscultation: normal bowel sounds Skin: General skin exam: normal color and no rashes or lesions noted Neuro: General: No confusion Cognition (Neuro): normal cognition Speech: normal speech Extrem: General: edema and
[2021-02-09] MEDS: RIVAROXABAN 15 MG TABLET PO (17:27)
[2021-02-09] MEDS: traMADol HCL (*CRX) 50 MG TABLET PO (20:40)
[2021-02-09 21:43] LABS: Glucose Point of Care 176 mg/dl (65-105)
[2021-02-10 00:33] LABS: Glucose Point of Care 140 mg/dl (65-105)
[2021-02-10 06:00] VITALS: BP 119/58; PULSE 76; RESP 20; TEMP 36.2; O2SAT 97
[2021-02-10] MEDS: BUMETANIDE INJ 1 MG/4 ML VIAL IV PUSH ×3 (06:09→21:35)
[2021-02-10 06:22] LABS: Hematocrit 27.3 % (42.0-52.0); Hemoglobin 8.3 g/dL (14.0-18.0); Mean Corpuscular HGB Conc 30.4 g/dl (32-36); Mean Corpuscular Hemoglobin 26.3 pg (26-34); Mean Corpuscular Volume 86.7 fl (80-100); Mean Platelet Volume 10.5 fl (7.4-10.4); Platelet Count Result 220 k/mm3 (150-375); Red Blood Count 3.15 M/mm3 (4.6-6.20); Red Cell Distribution Width 18.2 % (11.5-14.5); White Blood Count 6.8 K/mm3 (4.5-10.0)
[2021-02-10 06:32] LABS: Hemoglobin A1C 7.2 % (<5.7)
[2021-02-10 06:39] LABS: Albumin Level 2.5 g/dL (3.5-5.1); Anion Gap 6 mmol/L (8-16); Blood Urea Nitrogen 59 mg/dL (9-20); Calcium 8.2 mg/dL (8.4-10.2); Carbon Dioxide 22 mmol/L (22-30); Chloride 109 mmol/L (98-107); Estimated CRCL calculation 30 ml/min; Estimated Glomerular Filt Rate 32; Glucose 138 mg/dL (75-110); Magnesium 1.7 mg/dL (1.6-2.3); Phosphorus 3.2 mg/dL (2.5-4.5); Potassium 3.1 mmol/L (3.4-5.0); Sodium 137 mmol/L (137-145)
[2021-02-10] MEDS: POTASSIUM CHLORIDE 20 MEQ TABLET.ER PO ×2 (08:37→18:22)
[2021-02-10 08:38] VITALS: PULSE 76
[2021-02-10] MEDS: CYANOCOBALAMIN 1,000 MCG TABLET 1000 MCG PO (08:38)
[2021-02-10] MEDS: metOLazone 5 MG TABLET PO (08:38)
[2021-02-10] MEDS: MAGNESIUM OXIDE 400 MG TABLET PO (08:38)
[2021-02-10] MEDS: PANTOPRAZOLE 40 MG TABLET PO (08:38)
[2021-02-10] MEDS: FERROUS SULFATE 324 MG TABLET PO ×2 (08:38→18:23)
[2021-02-10] MEDS: ATORVASTATIN 10 MG TABLET PO (08:38)
[2021-02-10] MEDS: carvediloL 12.5 MG TABLET PO ×2 (08:38→20:56)
[2021-02-10 08:43] LABS: Glucose Point of Care 147 mg/dl (65-105)
[2021-02-10] MEDS: traMADol HCL (*CRX) 50 MG TABLET PO ×2 (08:43→21:00)
--- NOTE | 2021-02-10 10:07 | PM.PNCARD ---
Progress Note: A&P Assessment and Plan (1) Bilateral edema of lower extremity: Code(s): R60.0 - Localized edema Status: Acute Assessment and Plan: Severe lower extremity edema secondary to heart failure and chronic venous insufficiency. (2) Acute on chronic diastolic CHF (congestive heart failure): Code(s): I50.33 - Acute on chronic diastolic (congestive) heart failure Status: Acute Assessment and Plan: Acute on chronic diastolic heart failure, mostly right-sided , but does have some left-sided CHF as well. Furosemide 40 mg b.i.d. does not appear to be enough diuretic. Received 1 dose of IV furosemide 40 mg in the emergency room with not much response Transitioned to metolazone 5 mg q.d. plus Bumex 1 mg q.8 Still has significant lower extremity edema. No shortness of breath, no crackles. Continue with current diuretic regimen. continue diuresis. Will provide KCl 40 mg p.o. x1 because of hypokalemia (3) Atrial fibrillation: Code(s): I48.91 - Unspecified atrial fibrillation Status: Acute Assessment and Plan: Persistent atrial fibrillation, rate controlled, back on Xarelto. Previously had problems with anemia but that appears stable now. (4) CKD stage 3 secondary to diabetes: Code(s): E11.22 - Type 2 diabetes mellitus with diabetic chronic kidney disease; N18.30 - Chronic kidney disease, stage 3 unspecified Status: Acute Assessment and Plan: Check daily BMP He is hypokalemic and I will provide extra potassium. as above (5) Excessive daytime sleepiness: Code(s): G47.19 - Other hypersomnia Status: Acute Assessment and Plan: Apnea link showed AHI of 25. Patient aware and CPAP has been discussed - will start tonight Subjective Date/time seen: 02/10/21 10:08 Interval history: cardiology follow-up for CHF date of service 02/10/2021: he has no chest pain or shortness of breath. He thinks that his swelling may be a bit improved Review of Systems Constitutional: Constitutional: Reports fatigue Eyes: Eyes: Reports no additional eye complaints ENT: Denies epistaxis Cardiovascular: Cardiovascular: Denies chest pain, Reports pedal edema, Reports leg edema, Denies lightheadedness, Denies dyspnea and Denies dyspnea on exertion Respiratory: Respiratory: Denies hemoptysis, Denies dyspnea and Denies dyspnea on exertion Gastrointestinal: Gastrointestinal: Denies abdominal pain, Denies hematochezia and Denies constipation Genitourinary: Genitourinary: Denies hematuria and Denies dysuria Musculoskeletal: Musculoskeletal: Reports no additional musculoskeletal complaints Integumentary/Breasts: Skin/Breast: Denies wounds Neurologic: Denies behavioral changes and Denies confusion Psychiatric: Psychiatric: Denies behavioral changes and Denies confusion Endocrine: Endocrine: Reports fatigue Hematologic/Lymphatic: Hematologic/Lymphatic: Denies easy bleeding Allergic/Immunologic: Allergic/Immunologic: Denies lip swelling Exam Narrative: Exam Narrative: Pleasant older man sitting in the chair Const: General: no acute distress; No confusion Orientation/consciousness: No confusion HENMT: General nose exam: no epistaxis Mouth: Yes moist mucous membranes Eyes: EOM: EOMs intact bilaterally Neck: Neck: supple and no JVD Thyroid: thyroid normal Carotids: no bruits Lymphatic: lymphadenopathy not noted Resp: Effort & Inspection: normal respiratory effort Auscultation: clear to auscultation bilaterally Cardio: Rate: regular rate Rhythm: abnormal rhythm irregularly irregular Heart sounds: Murmur heart sound present systolic I/ Other: 1/6 MILE left sternal border GI: Inspection: distended Auscultation: normal bowel sounds Skin: General skin exam: normal color
[2021-02-10] MEDS: POTASSIUM CHLORIDE 20 MEQ TABLET 40 MEQ PO (11:15)
--- NOTE | 2021-02-10 11:35 | PM.IMPN ---
Progress Note: A&P Assessment and Plan (1) Acute on chronic diastolic CHF (congestive heart failure): Code(s): I50.33 - Acute on chronic diastolic (congestive) heart failure Status: Acute Assessment and Plan: Currently on IV Bumex and metolazone. Potassium replacement also has been ordered. Dick hose in place. Negative fluid balance since admission but not by much. Echo in October 2020 showing EF 65-70% with indeterminate diastolic function, mildly enlarged RV and moderate pulmonary HTN with moderate pulmonic regurgitation. Consider that this is more right sided failure. Monitor renal function closely to avoid hypoperfusion of his kidneys. Fluid restrict. (2) Elevated troponin: Code(s): R77.8 - Other specified abnormalities of plasma proteins Status: Acute Assessment and Plan: Troponin mildly elevated at 0.054 but flat. No ischemic symptoms. EKG showing ST T wave changes but appear to be more chronic. Elevated troponins consistent with nonischemic myocardial injury related to his CHF. (3) Atrial fibrillation: Code(s): I48.91 - Unspecified atrial fibrillation Status: Acute Assessment and Plan: Patient with chronic Atrial fibrillation. He is rate controlled with Coreg which has been continued. Continue Xarelto for anticoagulation. (4) Stage 3b chronic kidney disease: Code(s): N18.32 - Chronic kidney disease, stage 3b Status: Chronic Assessment and Plan: BUN 57 and creatinine 2.3 on admission. this is close to his baseline. With diuretics, renal function remaining stable. Continue to follow. (5) Pulmonary hypertension: Code(s): I27.20 - Pulmonary hypertension, unspecified Status: Acute Assessment and Plan: Patient with known pulmonary hypertension. Apnea link performed 02/08- showing AHI of 25 in RI of 26. Discussed with patient about trying NIV and he was agreeable but refused to wear this last night. Continue to encourage compliance. (6) Excessive daytime sleepiness: Code(s): G47.19 - Other hypersomnia Status: Acute Assessment and Plan: No hx of KEV. As above. (7) Diabetes: Code(s): E11.9 - Type 2 diabetes mellitus without complications Status: Chronic Assessment and Plan: A1c 7.2. The patient's blood glucose was reviewed on 02/10. Glucose well controlled. Continue AccuCheks covering with sliding scale. Hypoglycemia protocol available as needed. (8) Anemia: Code(s): D64.9 - Anemia, unspecified Status: Acute Assessment and Plan: Hgb this year running mostly in the 7-9 range. Hgb 9.1 on admission but dropped to 8.3 today. Work up last month showing: Iron studies with Fe 20, TIBC 201 and Sat 10%. Transferrin 127, STR 2.1 and Ferritin 168. His Folate normal but B12 level low at 237 and currently on B12 replacement. Guaiac positive. SPEP showing M-spike. UPEP shows a low level of monoclonal peak. 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 Colonoscopy showed internal hemorrhoids and EGD was unremarkable in January 2021. Follows with Dr Pelletier. Continue monitor hemoglobin. Transfuse as necessary. Continue B12 and iron. (9) Diarrhea: Code(s): R19.7 - Diarrhea, unspecified Status: Acute Assessment and Plan: Patient has developed diarrhea since admission. No other symptoms to suggest concerns for other etiologies. Probably viral. Check stool studies. Subjective Date/time seen: 02/10/21 11:35 Interval history: 80yo male with cAFib, dCHF and DM here for lower extremity edema. Patient continues to have loose stools yesterday and today. He states he had 5-6 stools yesterday although only 1 this documented. He refused the NIV last night. He denies any abdominal pain. No nausea or vomiting. No chest pain or shortness of breath. He is eating normally. He did sleep poorly last night. No melena or hematochezi
[2021-02-10 12:00] LABS: Glucose Point of Care 147 mg/dl (65-105)
[2021-02-10 14:00] VITALS: BP 135/70; PULSE 74; RESP 18; TEMP 36.2; O2SAT 98
[2021-02-10 18:07] LABS: Glucose Point of Care 172 mg/dl (65-105)
[2021-02-10] MEDS: RIVAROXABAN 15 MG TABLET PO (18:22)
[2021-02-10 20:56] VITALS: PULSE 74
[2021-02-10 21:55] LABS: Glucose Point of Care 157 mg/dl (65-105)
[2021-02-10 22:00] VITALS: BP 128/63; PULSE 82; RESP 20; TEMP 36.8; O2SAT 97
[2021-02-11] MEDS: BUMETANIDE INJ 1 MG/4 ML VIAL IV PUSH ×3 (05:58→21:22)
[2021-02-11 06:00] VITALS: BP 132/68; PULSE 74; RESP 20; TEMP 36.1; O2SAT 96
[2021-02-11 07:08] LABS: Hematocrit 27.9 % (42.0-52.0); Hemoglobin 8.5 g/dL (14.0-18.0); Mean Corpuscular HGB Conc 30.5 g/dl (32-36); Mean Corpuscular Hemoglobin 26.5 pg (26-34); Mean Corpuscular Volume 86.9 fl (80-100); Mean Platelet Volume 10.7 fl (7.4-10.4); Platelet Count Result 204 k/mm3 (150-375); Red Blood Count 3.21 M/mm3 (4.6-6.20); Red Cell Distribution Width 18.1 % (11.5-14.5)
[2021-02-11 07:33] LABS: Albumin Level 2.5 g/dL (3.5-5.1); Anion Gap 8 mmol/L (8-16); Blood Urea Nitrogen 61 mg/dL (9-20); Calcium 8.1 mg/dL (8.4-10.2); Carbon Dioxide 24 mmol/L (22-30); Chloride 108 mmol/L (98-107); Estimated CRCL calculation 25 ml/min; Estimated Glomerular Filt Rate 26; Glucose 138 mg/dL (75-110); Magnesium 1.6 mg/dL (1.6-2.3); Phosphorus 3.2 mg/dL (2.5-4.5); Potassium 2.8 mmol/L (3.4-5.0); Sodium 140 mmol/L (137-145)
--- NOTE | 2021-02-11 08:32 | PM.IMPN ---
Progress Note: A&P Assessment and Plan (1) Acute on chronic diastolic CHF (congestive heart failure): Code(s): I50.33 - Acute on chronic diastolic (congestive) heart failure Status: Acute Assessment and Plan: Currently on IV Bumex and metolazone. K = 2.8 this morning. Potassium replacement also has been ordered. recheck showed K=3.5 at 4pm today. Dick hose in place. Encouraged elevation. Encouraged increased activity and circulation - ordered PT/OT. Negative fluid balance since admission but not by much. Echo in October 2020 showing EF 65-70% with indeterminate diastolic function, mildly enlarged RV and moderate pulmonary HTN with moderate pulmonic regurgitation. Consider that this is more right sided failure. Monitor renal function closely to avoid hypoperfusion of his kidneys. Fluid restrict. Appreciate Cardiology medication titration. (2) Elevated troponin: Code(s): R77.8 - Other specified abnormalities of plasma proteins Status: Acute Assessment and Plan: Troponin mildly elevated at 0.054 but flat. no shortness of breath and no dyspnea, no chest pain and no chest pressure today, no ectopy and no palpitations today. No ischemic symptoms. EKG showing ST T wave changes but appear to be more chronic. Elevated troponins consistent with nonischemic myocardial injury related to his CHF. (3) Atrial fibrillation: Code(s): I48.91 - Unspecified atrial fibrillation Status: Acute Assessment and Plan: Patient with chronic Atrial fibrillation. He is rate controlled with Coreg which has been continued. Continue Xarelto for anticoagulation. (4) Stage 3b chronic kidney disease: Code(s): N18.32 - Chronic kidney disease, stage 3b Status: Chronic Assessment and Plan: BUN 57 and creatinine 2.3 on admission. this is close to his baseline. With much needed aggressive diuresis and diastolic heart dysfunction, creatinine elevated to 2.9 today appreciate nephrology consultation and recommendations wanted to put patient on IV antibiotics for his diarrhea, but with worsening renal function, will wait until stool culture results return treated low potassium with oral potassium supplementation (5) Pulmonary hypertension: Code(s): I27.20 - Pulmonary hypertension, unspecified Status: Acute Assessment and Plan: Patient with known pulmonary hypertension. Apnea link performed 02/08- showing AHI of 25 in RI of 26. Discussed with patient about trying NIV and he was agreeable but refused to wear it when offered. Continue to encourage compliance. (6) Excessive daytime sleepiness: Code(s): G47.19 - Other hypersomnia Status: Acute Assessment and Plan: No hx of KEV. May benefit from full outpatient sleep study As above. (7) Diabetes: Code(s): E11.9 - Type 2 diabetes mellitus without complications Status: Chronic Assessment and Plan: A1c 7.2. glucose today 157, 172 Glucose well controlled. Continue AccuCheks covering with sliding scale. Hypoglycemia protocol available as needed. eating and drinking well orally (8) Anemia: Code(s): D64.9 - Anemia, unspecified Status: Acute Assessment and Plan: Hgb this year running mostly in the 7-9 range. Hgb 9.1 on admission but dropped to 8.3 today. Work up last month showing: Iron studies with Fe 20, TIBC 201 and Sat 10%. Transferrin 127, STR 2.1 and Ferritin 168. His Folate normal but B12 level low at 237 and currently on B12 replacement. Guaiac positive. SPEP showing M-spike. UPEP shows a low level of monoclonal peak. 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 Colonoscopy showed internal hemorrhoids and EGD was unremarkable in January 2021. Follows with Dr Pelletier. Most recent hemoglobin 8.5 hematocrit 27.8 platelets 204 - stable when compared to other H/H levels. Continue monitor hemoglobin. Transfuse as n
[2021-02-11 08:47] VITALS: PULSE 80
[2021-02-11] MEDS: MAGNESIUM OXIDE 400 MG TABLET PO (08:47)
[2021-02-11] MEDS: carvediloL 12.5 MG TABLET PO ×2 (08:47→21:16)
[2021-02-11] MEDS: CYANOCOBALAMIN 1,000 MCG TABLET 1000 MCG PO (08:47)
[2021-02-11] MEDS: metOLazone 5 MG TABLET PO (08:47)
[2021-02-11] MEDS: POTASSIUM CHLORIDE 20 MEQ TABLET PO (08:47)
[2021-02-11] MEDS: FERROUS SULFATE 324 MG TABLET PO ×2 (08:47→17:35)
[2021-02-11] MEDS: POTASSIUM CHLORIDE 20 MEQ TABLET.ER PO (08:47)
[2021-02-11] MEDS: PANTOPRAZOLE 40 MG TABLET PO (08:47)
[2021-02-11] MEDS: ATORVASTATIN 10 MG TABLET PO (08:47)
[2021-02-11 09:08] LABS: Glucose Point of Care 136 mg/dl (65-105)
--- NOTE | 2021-02-11 09:19 | PM.CNNEP ---
Assessment and Plan Assessment and plan (1) Chronic kidney disease, stage 3b: Code(s): N18.32 - Chronic kidney disease, stage 3b Status: Acute Assessment and Plan: the patient has chronic kidney disease stage IIIB. He had a biopsy which shows diabetes and hypertension or playing the biggest rules. He had no signs of a paraproteinemia. The biopsy also showed significant amount of fibrosis. I explained to the patient at length diabetes and hypertension are causing his kidney disease and this is not a reversible phenomenon unfortunately. On the can do is managed things to try to keep the kidneys from getting worse if possible. Also explained to the patient that all the fluid he has is diluting his creatinine out so his kidney function is probably not as good as the estimates from the chemistry tests. So when we take the fluid off the delusional factor goes away in his kidney numbers worsen. We talked about walking the fine line between having too much fluid and being very swollen uncomfortable versus an elevated creatinine and if bad enough causing uremic symptoms. Early in the course of this sort of situation can maintain a mildly elevated creatinine with reasonably controlled edema such that he is not too uncomfortable. However as kidney disease progresses this fine line becomes harder to achieve and dialysis is the only thing that would a achieved both ends. Conservative measures to reduce proteinuria would include avoiding salty foods and treating his sleep apnea , besides the diuretics. At this point I think we ought to continue to diuretics to try to get rid of his fluid. I am hoping it does not need dialysis soon. However he should follow up in the office so we can get him dialysis education to decide which modality he would prefer when it comes down to needing this. To be sure he does not have anything reversible going on I will get an ultrasound of his kidneys. (2) Fluid overload, unspecified: Code(s): E87.70 - Fluid overload, unspecified Status: Acute Assessment and Plan: The patient is getting bumetanide 1 mg t.i.d. and metolazone 5 mg daily. His bicarbonate level is okay so far so I do not think we need a seat is a limb I would. His potassium is low so we can add spironolactone. (3) Pulmonary hypertension: Code(s): I27.20 - Pulmonary hypertension, unspecified Status: Acute Assessment and Plan: The patient's pulmonary hypertension is partly due to the volume overload but also may be contributed to by his sleep apnea. He is going to get the Outpatient test done so he can get a CPAP mask at home. (4) Atrial fibrillation: Code(s): I48.91 - Unspecified atrial fibrillation Status: Acute Assessment and Plan: Heart rate is under good control. He is on Xarelto. (5) Anemia: Code(s): D64.9 - Anemia, unspecified Status: Acute Assessment and Plan: Hemoglobin is 8.5. Will check iron B12 and folate. (6) Diabetes: Code(s): E11.9 - Type 2 diabetes mellitus without complications Status: Chronic Assessment and Plan: On medications per hospitalist (7) Hypertension: Code(s): I10 - Essential (primary) hypertension Status: Chronic Assessment and Plan: blood pressure under good control (8) Hyperlipidemia associated with type 2 diabetes mellitus: Code(s): E11.69 - Type 2 diabetes mellitus with other specified complication; E78.5 - Hyperlipidemia, unspecified Status: Chronic Assessment and Plan: on meds History of Present Illness Reason for Consult Consult date: 02/11/21 Chief Complaint Chief complaint: chf exacerbation History of Present Illness Narrative: Khalif is a very pleasant 80-year-old gentleman who has multiple medical problems including pulmonary hypertension, volume overload, chronic kidney disease, diabetes, hypertension, paraproteinemia Atrial
--- NOTE | 2021-02-11 09:35 | PM.PNCARD ---
Progress Note: A&P Assessment and Plan (1) Bilateral edema of lower extremity: Code(s): R60.0 - Localized edema Status: Acute Assessment and Plan: Severe lower extremity edema secondary to heart failure and chronic venous insufficiency. (2) Acute on chronic diastolic CHF (congestive heart failure): Code(s): I50.33 - Acute on chronic diastolic (congestive) heart failure Status: Acute Assessment and Plan: Acute on chronic diastolic heart failure, mostly right-sided , but does have some left-sided CHF as well. Furosemide 40 mg b.i.d. does not appear to be enough diuretic. Received 1 dose of IV furosemide 40 mg in the emergency room with not much response Transitioned to metolazone 5 mg q.d. plus Bumex 1 mg q.8 Still has significant lower extremity edema. No shortness of breath, no crackles. Continue with current diuretic regimen. continue diuresis. Will replace mag with 2 grams IV x 1 (3) Atrial fibrillation: Code(s): I48.91 - Unspecified atrial fibrillation Status: Acute Assessment and Plan: Persistent atrial fibrillation, rate controlled, back on Xarelto. Previously had problems with anemia but that appears stable now. (4) CKD stage 3 secondary to diabetes: Code(s): E11.22 - Type 2 diabetes mellitus with diabetic chronic kidney disease; N18.30 - Chronic kidney disease, stage 3 unspecified Status: Acute Assessment and Plan: Check daily BMP Appreciate Dr. Crouch assistance. spironolactone will be added (5) Excessive daytime sleepiness: Code(s): G47.19 - Other hypersomnia Status: Acute Assessment and Plan: Apnea link showed AHI of 25. will have pulmonology see him while in the hospital to help facilitate and expedite his sleep apnea treatment Subjective Date/time seen: 02/11/21 09:35 Interval history: cardiology follow-up for CHF date of service 02/11/2021: he has no chest pain or shortness of breath. slowly improving. Edema is better. Review of Systems Constitutional: Constitutional: Reports fatigue Eyes: Eyes: Reports no additional eye complaints ENT: Denies lip swelling and Denies epistaxis Cardiovascular: Cardiovascular: Denies chest pain, Reports pedal edema, Reports leg edema, Denies lightheadedness, Denies dyspnea and Denies dyspnea on exertion Respiratory: Respiratory: Denies hemoptysis, Denies dyspnea and Denies dyspnea on exertion Gastrointestinal: Gastrointestinal: Denies abdominal pain, Denies hematochezia and Denies constipation Genitourinary: Genitourinary: Denies hematuria and Denies dysuria Musculoskeletal: Musculoskeletal: Reports no additional musculoskeletal complaints Integumentary/Breasts: Skin/Breast: Denies wounds Neurologic: Denies behavioral changes and Denies confusion Psychiatric: Psychiatric: Denies behavioral changes and Denies confusion Endocrine: Endocrine: Reports fatigue Hematologic/Lymphatic: Hematologic/Lymphatic: Denies easy bleeding Allergic/Immunologic: Allergic/Immunologic: Denies lip swelling Exam Narrative: Exam Narrative: Pleasant older man sitting in the chair Const: General: no acute distress; No confusion Orientation/consciousness: No confusion HENMT: General nose exam: no epistaxis Mouth: Yes moist mucous membranes Eyes: EOM: EOMs intact bilaterally Neck: Neck: supple and no JVD Thyroid: thyroid normal Carotids: no bruits Lymphatic: lymphadenopathy not noted Resp: Effort & Inspection: normal respiratory effort Auscultation: clear to auscultation bilaterally Cardio: Rate: regular rate Rhythm: abnormal rhythm irregularly irregular Heart sounds: Murmur heart sound present systolic I/ Other: 1/6 MILE left sternal border GI: Inspection: distended Auscultation: normal b
[2021-02-11] MEDS: traMADol HCL (*CRX) 50 MG TABLET PO ×2 (10:12→18:02)
[2021-02-11] MEDS: SPIRONOLACTONE 25 MG TABLET PO (10:13)
[2021-02-11] MEDS: MAGNESIUM SULF 2 GM/WATER 50ML 2 GM/50 ML BAG IVPB (10:13)
[2021-02-11 10:48] LABS: Immature Reticulocyte Fraction 21.1 % (3.0-15.9); Reticulocyte Hemoglobin Conten 29.1 pg (28.2-35.7); Reticulocytes Absolute 0.06 B/L (32.2-175.7)
[2021-02-11 11:01] LABS: Creatine Kinase 62 U/L (55-170)
[2021-02-11 11:12] LABS: Iron 32 ug/dL (49-181)
[2021-02-11 11:21] LABS: Percent Iron Saturation 19 % (20-50)
[2021-02-11 12:08] LABS: Folic Acid 8.4 ng/mL (2.76->20); Vitamin B12 > 1000.0 pg/mL (239-931)
[2021-02-11 12:15] LABS: Anion Gap 9 mmol/L (8-16); Blood Urea Nitrogen 61 mg/dL (9-20); Calcium 8.5 mg/dL (8.4-10.2); Carbon Dioxide 27 mmol/L (22-30); Chloride 104 mmol/L (98-107); Estimated CRCL calculation 24 ml/min; Estimated Glomerular Filt Rate 25; Glucose 168 mg/dL (75-110); Potassium 3.2 mmol/L (3.4-5.0); Sodium 140 mmol/L (137-145)
[2021-02-11 12:29] LABS: Glucose Point of Care 153 mg/dl (65-105)
[2021-02-11 14:10] VITALS: BP 110/58; PULSE 77; RESP 14; TEMP 36.3; O2SAT 100
[2021-02-11 16:19] LABS: Potassium 3.5 mmol/L (3.4-5.0)
[2021-02-11] MEDS: RIVAROXABAN 15 MG TABLET PO (17:35)
[2021-02-11 17:51] LABS: Glucose Point of Care 155 mg/dl (65-105)
[2021-02-11 21:16] VITALS: PULSE 74
[2021-02-11 21:26] VITALS: BP 130/64; PULSE 74; RESP 16; TEMP 36.3; O2SAT 98
[2021-02-11 22:00] VITALS: BP 115/64; PULSE 79; RESP 20; TEMP 36.2; O2SAT 99
[2021-02-11 22:14] LABS: Glucose Point of Care 157 mg/dl (65-105)
[2021-02-12] MEDS: BUMETANIDE INJ 1 MG/4 ML VIAL IV PUSH ×3 (05:49→21:04)
[2021-02-12 06:00] VITALS: BP 125/71; PULSE 76; RESP 18; TEMP 36.2; O2SAT 98
[2021-02-12 06:48] LABS: Hematocrit 29.8 % (42.0-52.0); Mean Corpuscular HGB Conc 30.2 g/dl (32-36); Mean Corpuscular Hemoglobin 26.4 pg (26-34); Mean Corpuscular Volume 87.4 fl (80-100); Platelet Count Result 205 k/mm3 (150-375); Red Blood Count 3.41 M/mm3 (4.6-6.20); Red Cell Distribution Width 18.2 % (11.5-14.5); White Blood Count 5.6 K/mm3 (4.5-10.0)
[2021-02-12 07:18] LABS: Albumin Level 2.7 g/dL (3.5-5.1); Anion Gap 9 mmol/L (8-16); Blood Urea Nitrogen 75 mg/dL (9-20); Calcium 8.5 mg/dL (8.4-10.2); Carbon Dioxide 23 mmol/L (22-30); Chloride 104 mmol/L (98-107); Estimated CRCL calculation 26 ml/min; Estimated Glomerular Filt Rate 27; Glucose 139 mg/dL (75-110); Potassium 3.2 mmol/L (3.4-5.0); Sodium 136 mmol/L (137-145)
[2021-02-12 07:21] LABS: NT Pro B Type Natriuretic Pept 18600 pg/mL (5-100)
[2021-02-12 07:43] LABS: Glucose Point of Care 124 mg/dl (65-105)
[2021-02-12 08:43] VITALS: PULSE 80
[2021-02-12] MEDS: carvediloL 12.5 MG TABLET PO ×2 (08:43→21:04)
[2021-02-12] MEDS: POTASSIUM CHLORIDE 20 MEQ TABLET PO (08:44)
[2021-02-12] MEDS: POTASSIUM CHLORIDE 20 MEQ TABLET.ER PO (08:44)
[2021-02-12] MEDS: metOLazone 5 MG TABLET PO ×2 (08:45→14:15)
[2021-02-12] MEDS: CYANOCOBALAMIN 1,000 MCG TABLET 1000 MCG PO (08:45)
[2021-02-12] MEDS: ATORVASTATIN 10 MG TABLET PO (08:45)
[2021-02-12] MEDS: SPIRONOLACTONE 25 MG TABLET PO (08:45)
[2021-02-12] MEDS: FERROUS SULFATE 324 MG TABLET PO ×2 (08:45→16:52)
[2021-02-12] MEDS: MAGNESIUM OXIDE 400 MG TABLET PO (08:45)
[2021-02-12] MEDS: PANTOPRAZOLE 40 MG TABLET PO (08:46)
[2021-02-12] MEDS: traMADol HCL (*CRX) 50 MG TABLET PO ×2 (09:42→17:13)
--- NOTE | 2021-02-12 09:48 | PM.PNCARD ---
Progress Note: A&P Assessment and Plan (1) Bilateral edema of lower extremity: Code(s): R60.0 - Localized edema Status: Acute Assessment and Plan: Severe lower extremity edema secondary to heart failure and chronic venous insufficiency. (2) Acute on chronic diastolic CHF (congestive heart failure): Code(s): I50.33 - Acute on chronic diastolic (congestive) heart failure Status: Acute Assessment and Plan: Acute on chronic diastolic heart failure, mostly right-sided , but does have some left-sided CHF as well. Furosemide 40 mg b.i.d. does not appear to be enough diuretic. Received 1 dose of IV furosemide 40 mg in the emergency room with not much response Transitioned to metolazone 5 mg q.d. plus Bumex 1 mg q.8 Still has significant lower extremity edema. No shortness of breath, no crackles. Continue with current diuretic regimen. continue diuresis. additional KCl 20 mg p.o. times today. Will given additional 5 mg of metolazone today also orally (3) Atrial fibrillation: Code(s): I48.91 - Unspecified atrial fibrillation Status: Acute Assessment and Plan: Persistent atrial fibrillation, rate controlled, back on Xarelto. Previously had problems with anemia but that appears stable now. (4) CKD stage 3 secondary to diabetes: Code(s): E11.22 - Type 2 diabetes mellitus with diabetic chronic kidney disease; N18.30 - Chronic kidney disease, stage 3 unspecified Status: Acute Assessment and Plan: Check daily BMP Appreciate Dr. Crouch assistance. spironolactone will be added (5) Excessive daytime sleepiness: Code(s): G47.19 - Other hypersomnia Status: Acute Assessment and Plan: Apnea link showed AHI of 25. will have pulmonology see him while in the hospital to help facilitate and expedite his sleep apnea treatment Subjective Date/time seen: 02/12/21 09:48 Interval history: cardiology follow-up for CHF date of service 02/12/2021: he has no chest pain or shortness of breath. slowly improving. No significant changes. Review of Systems Constitutional: Constitutional: Reports fatigue Eyes: Eyes: Reports no additional eye complaints ENT: Denies lip swelling and Denies epistaxis Cardiovascular: Cardiovascular: Denies chest pain, Reports pedal edema, Reports leg edema, Denies lightheadedness, Denies dyspnea and Denies dyspnea on exertion Respiratory: Respiratory: Denies hemoptysis, Denies dyspnea and Denies dyspnea on exertion Gastrointestinal: Gastrointestinal: Denies abdominal pain, Denies hematochezia and Denies constipation Genitourinary: Genitourinary: Denies hematuria and Denies dysuria Musculoskeletal: Musculoskeletal: Reports no additional musculoskeletal complaints Integumentary/Breasts: Skin/Breast: Denies wounds Neurologic: Denies behavioral changes and Denies confusion Psychiatric: Psychiatric: Denies behavioral changes and Denies confusion Endocrine: Endocrine: Reports fatigue Hematologic/Lymphatic: Hematologic/Lymphatic: Denies easy bleeding Allergic/Immunologic: Allergic/Immunologic: Denies lip swelling Exam Narrative: Exam Narrative: Pleasant older man sitting in the chair Const: General: no acute distress; No confusion Orientation/consciousness: No confusion HENMT: General nose exam: no epistaxis Mouth: Yes moist mucous membranes Eyes: EOM: EOMs intact bilaterally Neck: Neck: supple and no JVD Thyroid: thyroid normal Carotids: no bruits Lymphatic: lymphadenopathy not noted Resp: Effort & Inspection: normal respiratory effort Auscultation: clear to auscultation bilaterally Cardio: Rate: regular rate Rhythm: abnormal rhythm irregularly irregular Heart sounds: Murmur heart sound present systolic I/ Other: 08/09 MILE le
[2021-02-12 12:08] LABS: Glucose Point of Care 184 mg/dl (65-105)
[2021-02-12 13:39] LABS: IFOB Positive Control Positive; Immunochemical Fecal Occult Bl Positive (N)
[2021-02-12 14:00] VITALS: BP 109/64; PULSE 83; RESP 18; TEMP 37.1; O2SAT 99
--- NOTE | 2021-02-12 15:51 | PM.IMPN ---
Progress Note: A&P Assessment and Plan (1) Acute on chronic diastolic CHF (congestive heart failure): Code(s): I50.33 - Acute on chronic diastolic (congestive) heart failure Status: Acute Assessment and Plan: Echo in October 2020 showing EF 65-70% with indeterminate diastolic function, mildly enlarged RV and moderate pulmonary HTN with moderate pulmonic regurgitation. BNP 15K (repeat 18.6K). CXR showing pulmonary vascular congestion. Consider that this is more right sided failure. Currently on IV Bumex, spironolactore and metolazone. K 3.2 this morning. Potassium replacement has been ordered. Dick hose in place. Encouraged elevation. Fluid restrict. Encourage increased activity and circulation - PT/OT ordered. Fluid balance even. Monitor renal function closely to avoid hypoperfusion of his kidneys. Appreciate Cardiology input. (2) Elevated troponin: Code(s): R77.8 - Other specified abnormalities of plasma proteins Status: Acute Assessment and Plan: Troponin mildly elevated at 0.054 but flat. No symptoms of ischemia. EKG showing ST T wave changes but appear to be more chronic. Elevated troponins consistent with nonischemic myocardial injury related to his CHF. (3) Atrial fibrillation: Code(s): I48.91 - Unspecified atrial fibrillation Status: Acute Assessment and Plan: Patient with chronic Atrial fibrillation. He is rate controlled with Coreg which has been continued. Continue Xarelto for anticoagulation. (4) Stage 3b chronic kidney disease: Code(s): N18.32 - Chronic kidney disease, stage 3b Status: Chronic Assessment and Plan: BUN 57 and creatinine 2.3 on admission. This is close to his baseline. With much needed aggressive diuresis for the diastolic heart dysfunction, creatinine elevated to 2.8 today. Appreciate nephrology consultation and recommendations. Continue to replace potassium as needed. Continue to monitor. (5) Pulmonary hypertension: Code(s): I27.20 - Pulmonary hypertension, unspecified Status: Acute Assessment and Plan: Patient with known pulmonary hypertension. Apnea link performed 02/08- showing AHI of 25 in [place] of 26. Discussed with patient about trying NIV and he was agreeable but refused to wear it when offered. Continue to encourage compliance. (6) Excessive daytime sleepiness: Code(s): G47.19 - Other hypersomnia Status: Acute Assessment and Plan: No hx of KEV. May benefit from full outpatient sleep study if he would be agreeable to wear a NIV. As above. (7) Diabetes: Code(s): E11.9 - Type 2 diabetes mellitus without complications Status: Chronic Assessment and Plan: A1c 7.2. Glucose reviewed on 02/12. Glucose well controlled. Continue AccuCheks covering with sliding scale. Hypoglycemia protocol available as needed. (8) Anemia: Code(s): D64.9 - Anemia, unspecified Status: Chronic Assessment and Plan: Hgb this year running mostly in the 7-9 range. Hgb 9.1 on admission and has remained stable in he 8-9 range. Work up last month showing: Iron studies with Fe 20, TIBC 201 and Sat 10%. Transferrin 127, STR 2.1 and Ferritin 168. His Folate normal but B12 level low at 237 and currently on B12 replacement. Guaiac positive. SPEP showing M-spike. UPEP shows a low level of monoclonal peak. 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 Colonoscopy showed internal hemorrhoids and EGD was unremarkable in January 2021. Follows with Dr Pelletier. Continue to monitor hemoglobin. Transfuse as necessary. Continue B12 and iron. (9) Diarrhea: Code(s): R19.7 - Diarrhea, unspecified Status: Acute Assessment and Plan: Patient has developed diarrhea since his last admission in January. No other symptoms to suggest concerns for other etiologies. KUB showing no acute abdominal abnormality identified. Probably viral. Stool studies
--- NOTE | 2021-02-12 16:10 | PM.PNNEP ---
Progress Note: A&P Assessment and Plan (1) Chronic kidney disease, stage 3b: Code(s): N18.32 - Chronic kidney disease, stage 3b Status: Chronic Assessment and Plan: due to biopsy proven diabetic and hypertensive nephrosclerosis creatinine fluctuates due to fluid status -- lower creatinines secondary to dilution and higher creatinines due to diuresis to attain euvolemia baseline creatinine probably around 2.5mg/dl if not higher hard to balance this issue of swelling/volume overload versus higher creatinine and azotemia/uremia - concern that these issues could potentiate the need for dialysis continue diuresis as tolerated follow repeat labs and I/Os (2) Fluid overload, unspecified: Code(s): E87.70 - Fluid overload, unspecified Status: Chronic Assessment and Plan: due to acute on chronic diastolic heart failure primarily localized in his lower extremities on bumex, metolazone, and spironolactone replete K+ as needed follow I/Os and daily weights Cardiology following (3) Pulmonary hypertension: Code(s): I27.20 - Pulmonary hypertension, unspecified Status: Chronic Assessment and Plan: as noted by testing to date likely secondary to his KEV but likely worsened by volume overload unable to tolerated CPAP -- further testing as an outpatient(?) (4) Anemia: Code(s): D64.9 - Anemia, unspecified Status: Chronic Assessment and Plan: due in part by CKD however, also noted to be guaiac positive Epogen 3x/week while hospitalized follow trend of H/H (5) Hypertension: Code(s): I10 - Essential (primary) hypertension Status: Chronic Assessment and Plan: reasonable control at this time follow trend of hemodynamics (6) Diabetes: Code(s): E11.9 - Type 2 diabetes mellitus without complications Status: Chronic Assessment and Plan: follow accuchecks on SSI Will continue to follow. Subjective Date/time seen: 02/12/21 16:10 Chart reviewed -- in spite of current diuretics, still with significant edema; swelling seems a bit better in comparison to admission; no apparent distress voiced at the time of my visit; no events/issues overnight or earlier this morning. Exam Narrative: Exam Narrative: General: WD/WN male/female in NAD Heart: normal S1 and S2; IRRR, no rub Lungs: clear to auscultation Abdomen: soft, nontender, nondistended, positive bowel sounds Extremities: no cyanosis or clubbing; 2 - 3+ edema Skin: warm and dry Objective Data Vital Signs Vital Signs: Vital Signs Temp Pulse Resp BP Pulse Ox 02/12/21 14:00 37.1 C 83 18 109/64 99 02/12/21 08:43 80 02/12/21 06:00 36.2 C L 76 18 125/71 98 02/11/21 22:00 36.2 C L 79 20 115/64 99 02/11/21 21:26 36.3 C L 74 16 130/64 98 02/11/21 21:16 74 Intake/Output Intake/Output: Intake & Output 02/09/21 02/10/21 02/11/21 02/12/21 23:59 23:59 23:59 23:59 Intake Total 1820 1020 1550 560 Output Total 2100 1720 130 8047 Balance -280 -180 775 -890 Meds/Results Medications: Active Medications Generic Name Dose Route Start Last Admin Trade Name Sd PRN Reason Stop Dose Admin Acetaminophen 650 mg 02/09/21 02:35 Acetaminophen 325 Mg Tablet PO Q4H PRN Mild Pain (1-3) Or Fever Al Hydrox/Mg Hydrox/Simethicone 30 ml 02/08/21 13:57 Mag Hydrox/Al Hydrox/Simeth 30 Ml Udc PO Q6H PRN Indigestion Albuterol 2 puff 02/09/21 02:35 Albuterol Sulfate (*Sp) Aerosol 1 Puff INHALATION Q6HRT PRN Shortness Of Breath Atorvastatin Calcium 10 mg 02/09/21 09:00 02/12/21 08:45 Atorvastatin 10 Mg Tablet PO 10 mg DAILY CESAR Administration Bisacodyl 10 mg 02/09/21 02:35 Bisacodyl 10 Mg Suppository RECTAL Q24H PRN Constipation Bumetanide 1 mg 02/08/21 22:00 02/12/21 14:13 Bumetanide Inj 1 Mg/4 Ml Vial IV PUSH 1 mg Q8
--- NOTE | 2021-02-12 16:10 | P.PNNP_ITS ---
Progress Note: A&P Assessment and Plan (1) Chronic kidney disease, stage 3b: Code(s): N18.32 - Chronic kidney disease, stage 3b Status: Chronic Assessment and Plan: * due to biopsy proven diabetic and hypertensive nephrosclerosis * creatinine fluctuates due to fluid status -- lower creatinines secondary to dilution and higher creatinines due to diuresis to attain euvolemia * baseline creatinine probably around 2.5mg/dl if not higher * hard to balance this issue of swelling/volume overload versus higher creati nine and azotemia/uremia - concern that these issues could potentiate the need for di alysis * continue diuresis as tolerated * follow repeat labs and I/Os (2) Fluid overload, unspecified: Code(s): E87.70 - Fluid overload, unspecified Status: Chronic Assessment and Plan: * due to acute on chronic diastolic heart failure * primarily localized in his lower extremities * on bumex, metolazone, and spironolactone * replete K+ as needed * follow I/Os and daily weights * Cardiology following (3) Pulmonary hypertension: Code(s): I27.20 - Pulmonary hypertension, unspecified Status: Chronic Assessment and Plan: * as noted by testing to date * likely secondary to his KEV but likely worsened by volume overload * unable to tolerated CPAP -- further testing as an outpatient(?) (4) Anemia: Code(s): D64.9 - Anemia, unspecified Status: Chronic Assessment and Plan: * due in part by CKD * however, also noted to be guaiac positive * Epogen 3x/week while hospitalized * follow trend of H/H (5) Hypertension: Code(s): I10 - Essential (primary) hypertension Status: Chronic Assessment and Plan: * reasonable control at this time * follow trend of hemodynamics (6) Diabetes: Code(s): E11.9 - Type 2 diabetes mellitus without complications Status: Chronic Assessment and Plan: * follow accuchecks * on SSI Will continue to follow. Subjective Date/time seen: 02/12/21 16:10 Chart reviewed -- in spite of current diuretics, still with significant edema; swelling seems a bit better in comparison to admission; no apparent distress voiced at the time of my visit; no events/issues overnight or earlier this morning. Exam Narrative: Exam Narrative: General: WD/WN male/female in NAD Heart: normal S1 and S2; IRRR, no rub Lungs: clear to auscultation Abdomen: soft, nontender, nondistended, positive bowel sounds Extremities: no cyanosis or clubbing; 2 - 3+ edema Skin: warm and dry Objective Data Vital Signs Vital Signs: Vital Signs Temp Pulse Resp BP Pulse Ox 02/12/21 14:00 37.1 C 83 18 109/64 99 02/12/21 08:43 80 02/12/21 06:00 36.2 C L 76 18 125/71 98 02/11/21 22:00 36.2 C L 79 20 115/64 99 02/11/21 21:26 36.3 C L 74 16 130/64 98 02/11/21 21:16 74 Intake/Output Intake/Output: Intake & Output 02/09/21 02/10/21 02/11/21 02/12/21 23:59 23:59 23:59 23:59 Intake Total 1820 1020 1550 560 Output Total 2100 7320 737 1911 Balance -280 -180 775 -890 Meds/Results Medications: Active Medications Generic Name Dose Route Start Last Admin Trade Name Alexanderq PRN Reason Stop Dose Admin Acetaminophen 650 mg 07
[2021-02-12] MEDS: RIVAROXABAN 15 MG TABLET PO (16:53)
[2021-02-12 17:48] LABS: Glucose Point of Care 155 mg/dl (65-105)
[2021-02-12] MEDS: metroNIDAZOLE 250 MG TABLET PO (21:04)
[2021-02-12 21:14] LABS: Glucose Point of Care 183 mg/dl (65-105)
[2021-02-12 21:41] VITALS: BP 122/61; PULSE 81; RESP 18; TEMP 36.4; O2SAT 100
[2021-02-13 06:00] VITALS: BP 127/62; PULSE 79; RESP 18; TEMP 36.6; O2SAT 99
[2021-02-13] MEDS: metroNIDAZOLE 250 MG TABLET PO (06:46)
[2021-02-13] MEDS: BUMETANIDE INJ 1 MG/4 ML VIAL IV PUSH ×3 (06:46→21:16)
[2021-02-13 07:01] LABS: Hematocrit 28.2 % (42.0-52.0); Hemoglobin 8.5 g/dL (14.0-18.0); Mean Corpuscular HGB Conc 30.1 g/dl (32-36); Mean Corpuscular Hemoglobin 26.7 pg (26-34); Mean Corpuscular Volume 88.7 fl (80-100); Mean Platelet Volume 10.8 fl (7.4-10.4); Platelet Count Result 185 k/mm3 (150-375); Red Blood Count 3.18 M/mm3 (4.6-6.20); Red Cell Distribution Width 18.2 % (11.5-14.5); White Blood Count 5.4 K/mm3 (4.5-10.0)
[2021-02-13 07:14] LABS: Albumin Level 2.4 g/dL (3.5-5.1); Anion Gap 8 mmol/L (8-16); Blood Urea Nitrogen 86 mg/dL (9-20); Carbon Dioxide 23 mmol/L (22-30); Chloride 107 mmol/L (98-107); Estimated CRCL calculation 23 ml/min; Estimated Glomerular Filt Rate 24; Glucose 153 mg/dL (75-110); Magnesium 1.7 mg/dL (1.6-2.3); Potassium 2.9 mmol/L (3.4-5.0); Sodium 138 mmol/L (137-145)
[2021-02-13 07:32] LABS: Glucose Point of Care 134 mg/dl (65-105)
[2021-02-13] MEDS: MAGNESIUM OXIDE 400 MG TABLET PO (09:17)
[2021-02-13] MEDS: metOLazone 5 MG TABLET PO (09:17)
[2021-02-13 09:18] VITALS: PULSE 76
[2021-02-13] MEDS: ATORVASTATIN 10 MG TABLET PO (09:18)
[2021-02-13] MEDS: CYANOCOBALAMIN 1,000 MCG TABLET 1000 MCG PO (09:18)
[2021-02-13] MEDS: PANTOPRAZOLE 40 MG TABLET PO (09:18)
[2021-02-13] MEDS: SPIRONOLACTONE 25 MG TABLET PO (09:18)
[2021-02-13] MEDS: carvediloL 12.5 MG TABLET PO ×2 (09:18→21:16)
[2021-02-13] MEDS: POTASSIUM CHLORIDE 20 MEQ TABLET PO ×3 (09:18→19:01)
[2021-02-13] MEDS: FERROUS SULFATE 324 MG TABLET PO ×2 (09:18→17:16)
[2021-02-13] MEDS: POTASSIUM CHLORIDE 20 MEQ TABLET.ER PO (09:19)
[2021-02-13] MEDS: VANCOMYCIN ORAL 125 MG/2.5 ML SYRUP PO ×3 (10:05→19:01)
--- NOTE | 2021-02-13 10:32 | PM.IMPN ---
Progress Note: A&P Assessment and Plan (1) Acute on chronic diastolic CHF (congestive heart failure): Code(s): I50.33 - Acute on chronic diastolic (congestive) heart failure Status: Acute Assessment and Plan: Echo in October 2020 showing EF 65-70% with indeterminate diastolic function, mildly enlarged RV and moderate pulmonary HTN with moderate pulmonic regurgitation. BNP 15K (repeat 18.6K). CXR here showing pulmonary vascular congestion. Consider that this is more right sided failure. Currently on IV Bumex, spironolactone and metolazone. K 2.9 this morning. Potassium replacement has been ordered. Encouraged elevation. Fluid restriction. Encourage increased activity; continue PT/OT. Fluid balance mildly negative but has been having diarrhea. Renal function noted. Monitor renal function closely. Appreciate Cardiology input. (2) Elevated troponin: Code(s): R77.8 - Other specified abnormalities of plasma proteins Status: Acute Assessment and Plan: Troponin mildly elevated at 0.054 but flat. No symptoms of ischemia. EKG showing ST T wave changes but appear to be more chronic. Elevated troponins consistent with nonischemic myocardial injury related to his CHF. (3) Atrial fibrillation: Code(s): I48.91 - Unspecified atrial fibrillation Status: Acute Assessment and Plan: Patient with chronic atrial fibrillation. He is rate controlled with Coreg which has been continued. Continue Xarelto for anticoagulation. (4) Stage 3b chronic kidney disease: Code(s): N18.32 - Chronic kidney disease, stage 3b Status: Chronic Assessment and Plan: BUN 57 and creatinine 2.3 on admission. This is close to his baseline. With much needed aggressive diuresis for the diastolic heart dysfunction, creatinine elevated to 3.1 today. Appreciate nephrology consultation and recommendations. Continue to replace potassium as needed. Continue to monitor. (5) Pulmonary hypertension: Code(s): I27.20 - Pulmonary hypertension, unspecified Status: Acute Assessment and Plan: Patient with known pulmonary hypertension. Apnea link performed 02/08- showing AHI of 25 in RI of 26. Discussed with patient about trying NIV and he was agreeable but refused to wear it when offered. Continue to encourage compliance. (6) Excessive daytime sleepiness: Code(s): G47.19 - Other hypersomnia Status: Acute Assessment and Plan: No hx of KEV. May benefit from full outpatient sleep study if he would be agreeable to wear a NIV. As above. (7) Diabetes: Code(s): E11.9 - Type 2 diabetes mellitus without complications Status: Chronic Assessment and Plan: A1c 7.2. Glucose reviewed on 02/13 Glucose well controlled. Not on his Victoza and Actosat this time. Continue AccuCheks covering with sliding scale. Hypoglycemia protocol available as needed. (8) Anemia: Code(s): D64.9 - Anemia, unspecified Status: Chronic Assessment and Plan: Hgb this year running mostly in the 7-9 range. Hgb 9.1 on admission and has remained stable in he 8-9 range. Work up last month showing: Iron studies with Fe 20, TIBC 201 and Sat 10%. Transferrin 127, STR 2.1 and Ferritin 168. His Folate normal but B12 level low at 237 and currently on B12 replacement. Guaiac positive. SPEP showing M-spike. UPEP shows a low level of monoclonal peak. 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 Colonoscopy showed internal hemorrhoids and EGD was unremarkable in January 2021. Follows with Dr Pelletier. Continue to monitor hemoglobin. Transfuse as necessary. Continue B12 and iron replacement. (9) C. difficile diarrhea: Code(s): A04.72 - Enterocolitis due to Clostridium difficile, not specified as recurrent Status: Acute Assessment and Plan: Patient has developed diarrhea since this admission (not since January admission). KUB showing no acu
--- NOTE | 2021-02-13 10:49 | P.PNNP_ITS ---
Progress Note: A&P Assessment and Plan (1) Chronic kidney disease, stage 3b: Code(s): N18.32 - Chronic kidney disease, stage 3b Status: Chronic Assessment and Plan: * due to biopsy proven diabetic and hypertensive nephrosclerosis * creatinine fluctuates due to fluid status -- lower creatinines secondary to dilution and higher creatinines due to diuresis to attain euvolemia * baseline creatinine probably around 2.5mg/dl if not higher * hard to balance this issue of swelling/volume overload versus higher creati nine and azotemia/uremia - concern that these issues could potentiate the need for di alysis - however, this clearly a situation where we have to accept a higher creatinine to achieve some stability in volume status * continue diuresis as tolerated * follow repeat labs and I/Os (2) Fluid overload, unspecified: Code(s): E87.70 - Fluid overload, unspecified Status: Chronic Assessment and Plan: * due to acute on chronic diastolic heart failure * primarily localized in his lower extremities * on bumex, metolazone, and spironolactone * replete K+ as needed * follow I/Os and daily weights * Cardiology following (3) Pulmonary hypertension: Code(s): I27.20 - Pulmonary hypertension, unspecified Status: Chronic Assessment and Plan: * as noted by testing to date * likely secondary to his sleep apnea but likely worsened by volume overload * unable to tolerated CPAP -- further testing as an outpatient(?) (4) Anemia: Code(s): D64.9 - Anemia, unspecified Status: Chronic Assessment and Plan: * due in part by CKD * however, also noted to be guaiac positive * Epogen 3x/week while hospitalized * follow trend of H/H (5) Hypertension: Code(s): I10 - Essential (primary) hypertension Status: Chronic Assessment and Plan: * reasonable control at this time * follow trend of hemodynamics (6) Diabetes: Code(s): E11.9 - Type 2 diabetes mellitus without complications Status: Chronic Assessment and Plan: * follow accuchecks * on SSI Will continue to follow. Subjective Date/time seen: 02/13/21 10:49 Seems to think the his lower extremity edema/swelling is slowly improving; continues to make good urine output; still with loose stools with less frequency noted; no other acute complaints voiced; no apparent distress; no everns overnight or earlier this AM. Exam Narrative: Exam Narrative: General: WD/WN male/female in NAD Heart: normal S1 and S2; IRRR, no rub Lungs: clear to auscultation Abdomen: soft, nontender, nondistended, positive bowel sounds Extremities: no cyanosis or clubbing; 2 - 3+ edema Skin: warm and intact Objective Data Vital Signs Vital Signs: Vital Signs Temp Pulse Resp BP Pulse Ox 02/13/21 09:18 76 02/13/21 06:00 36.6 C 79 18 127/62 99 02/12/21 21:41 36.4 C 81 18 122/61 100 02/12/21 14:00 37.1 C 83 18 109/64 99 Intake/Output Intake/Output: Intake & Output 02/10/21 02/11/21 02/12/21 02/13/21 23:59 23:59 23:59 23:59 Intake Total 1020 1550 800 320 Output Total 3898 459 8320 500 Balance -180 775 -650 -180 Meds/Results Medications: Active Medications Generic Name Dose Route Start L
--- NOTE | 2021-02-13 10:49 | PM.PNNEP ---
Progress Note: A&P Assessment and Plan (1) Chronic kidney disease, stage 3b: Code(s): N18.32 - Chronic kidney disease, stage 3b Status: Chronic Assessment and Plan: due to biopsy proven diabetic and hypertensive nephrosclerosis creatinine fluctuates due to fluid status -- lower creatinines secondary to dilution and higher creatinines due to diuresis to attain euvolemia baseline creatinine probably around 2.5mg/dl if not higher hard to balance this issue of swelling/volume overload versus higher creatinine and azotemia/uremia - concern that these issues could potentiate the need for dialysis - however, this clearly a situation where we have to accept a higher creatinine to achieve some stability in volume status continue diuresis as tolerated follow repeat labs and I/Os (2) Fluid overload, unspecified: Code(s): E87.70 - Fluid overload, unspecified Status: Chronic Assessment and Plan: due to acute on chronic diastolic heart failure primarily localized in his lower extremities on bumex, metolazone, and spironolactone replete K+ as needed follow I/Os and daily weights Cardiology following (3) Pulmonary hypertension: Code(s): I27.20 - Pulmonary hypertension, unspecified Status: Chronic Assessment and Plan: as noted by testing to date likely secondary to his sleep apnea but likely worsened by volume overload unable to tolerated CPAP -- further testing as an outpatient(?) (4) Anemia: Code(s): D64.9 - Anemia, unspecified Status: Chronic Assessment and Plan: due in part by CKD however, also noted to be guaiac positive Epogen 3x/week while hospitalized follow trend of H/H (5) Hypertension: Code(s): I10 - Essential (primary) hypertension Status: Chronic Assessment and Plan: reasonable control at this time follow trend of hemodynamics (6) Diabetes: Code(s): E11.9 - Type 2 diabetes mellitus without complications Status: Chronic Assessment and Plan: follow accuchecks on SSI Will continue to follow. Subjective Date/time seen: 02/13/21 10:49 Seems to think the his lower extremity edema/swelling is slowly improving; continues to make good urine output; still with loose stools with less frequency noted; no other acute complaints voiced; no apparent distress; no everns overnight or earlier this AM. Exam Narrative: Exam Narrative: General: WD/WN male/female in NAD Heart: normal S1 and S2; IRRR, no rub Lungs: clear to auscultation Abdomen: soft, nontender, nondistended, positive bowel sounds Extremities: no cyanosis or clubbing; 2 - 3+ edema Skin: warm and intact Objective Data Vital Signs Vital Signs: Vital Signs Temp Pulse Resp BP Pulse Ox 02/13/21 09:18 76 02/13/21 06:00 36.6 C 79 18 127/62 99 02/12/21 21:41 36.4 C 81 18 122/61 100 02/12/21 14:00 37.1 C 83 18 109/64 99 Intake/Output Intake/Output: Intake & Output 02/10/21 02/11/21 02/12/21 02/13/21 23:59 23:59 23:59 23:59 Intake Total 1020 1550 800 320 Output Total 4794 060 1580 500 Balance -180 775 -650 -180 Meds/Results Medications: Active Medications Generic Name Dose Route Start Last Admin Trade Name Freq PRN Reason Stop Dose Admin Acetaminophen 650 mg 02/09/21 02:35 Acetaminophen 325 Mg Tablet PO Q4H PRN Mild Pain (1-3) Or Fever Al Hydrox/Mg Hydrox/Simethicone 30 ml 02/08/21 13:57 Mag Hydrox/Al Hydrox/Simeth 30 Ml Udc PO Q6H PRN Indigestion Albuterol 2 puff 02/09/21 02:35 Albuterol Sulfate (*Sp) Aerosol 1 Puff INHALATION Q6HRT PRN Shortness Of Breath Atorvastatin Calcium 10 mg 02/09/21 09:00 02/13/21 09:18 Atorvastatin 10 Mg Tablet PO 10 mg DAILY CESAR Administration Bisacodyl 10 mg 02/09/21 02:35 Bisacodyl 10 Mg Suppository RECTAL Q24H PRN Constipation Bumetani
[2021-02-13 11:50] LABS: Glucose Point of Care 161 mg/dl (65-105)
[2021-02-13] MEDS: EPOETIN ALFA-EPBX 10,000 UNITS/ML VIAL 10000 UNITS SUB-Q (12:00)
[2021-02-13 13:46] VITALS: BP 119/69; PULSE 68; RESP 18; TEMP 36.6; O2SAT 100
--- NOTE | 2021-02-13 13:56 | PM.PNCARD ---
Progress Note: A&P Assessment and Plan (1) Bilateral edema of lower extremity: Code(s): R60.0 - Localized edema Status: Acute Assessment and Plan: Severe lower extremity edema secondary to heart failure and chronic venous insufficiency. (2) Acute on chronic diastolic CHF (congestive heart failure): Code(s): I50.33 - Acute on chronic diastolic (congestive) heart failure Status: Acute Assessment and Plan: Acute on chronic diastolic heart failure, mostly right-sided , but does have some left-sided CHF as well. Furosemide 40 mg b.i.d. does not appear to be enough diuretic. Received 1 dose of IV furosemide 40 mg in the emergency room with not much response Transitioned to metolazone 5 mg q.d. plus Bumex 1 mg q.8 Still has significant lower extremity edema. No shortness of breath, no crackles. Continue with current diuretic regimen. continue diuresis. electrolyte imbalance. Will give 2 g of IV magnesium as well as an additional 20 mEq of p.o. potassium. This is in addition to the potassium he Has already received. (3) Atrial fibrillation: Code(s): I48.91 - Unspecified atrial fibrillation Status: Acute Assessment and Plan: Persistent atrial fibrillation, rate controlled, back on Xarelto. Previously had problems with anemia but that appears stable now. (4) CKD stage 3 secondary to diabetes: Code(s): E11.22 - Type 2 diabetes mellitus with diabetic chronic kidney disease; N18.30 - Chronic kidney disease, stage 3 unspecified Status: Acute Assessment and Plan: Check daily BMP Appreciate Dr. Crouch assistance. spironolactone has been added (5) Excessive daytime sleepiness: Code(s): G47.19 - Other hypersomnia Status: Acute Assessment and Plan: Apnea link showed AHI of 25. will have pulmonology see him while in the hospital to help facilitate and expedite his sleep apnea treatment Subjective Date/time seen: 02/13/21 13:56 Interval history: cardiology follow-up for CHF date of service 02/13/2021: he has no chest pain or shortness of breath. slowly improving. does have some diarrhea and is now C diff positive Review of Systems Constitutional: Constitutional: Reports fatigue Eyes: Eyes: Reports no additional eye complaints ENT: Denies lip swelling and Denies epistaxis Cardiovascular: Cardiovascular: Denies chest pain, Reports pedal edema, Reports leg edema, Denies lightheadedness, Denies dyspnea and Denies dyspnea on exertion Respiratory: Respiratory: Denies hemoptysis, Denies dyspnea and Denies dyspnea on exertion Gastrointestinal: Gastrointestinal: Denies abdominal pain, Denies hematochezia and Denies constipation Genitourinary: Genitourinary: Denies hematuria and Denies dysuria Musculoskeletal: Musculoskeletal: Reports no additional musculoskeletal complaints Integumentary/Breasts: Skin/Breast: Denies wounds Neurologic: Denies behavioral changes and Denies confusion Psychiatric: Psychiatric: Denies behavioral changes and Denies confusion Endocrine: Endocrine: Reports fatigue Hematologic/Lymphatic: Hematologic/Lymphatic: Denies easy bleeding Allergic/Immunologic: Allergic/Immunologic: Denies lip swelling Exam Narrative: Exam Narrative: Pleasant older man sitting in the chair Const: General: no acute distress; No confusion Orientation/consciousness: No confusion HENMT: General nose exam: no epistaxis Mouth: Yes moist mucous membranes Eyes: EOM: EOMs intact bilaterally Neck: Neck: supple and no JVD Thyroid: thyroid normal Carotids: no bruits Lymphatic: lymphadenopathy not noted Resp: Effort & Inspection: normal respiratory effort Auscultation: clear to auscultation bilaterally Cardio: Rate: regular rate Rhythm: abnormal rhythm
[2021-02-13] MEDS: MAGNESIUM SULF 2 GM/WATER 50ML 2 GM/50 ML BAG IVPB (14:53)
[2021-02-13 16:01] LABS: Magnesium 1.7 mg/dL (1.6-2.3); Potassium 3.5 mmol/L (3.4-5.0)
[2021-02-13 17:13] LABS: Glucose Point of Care 134 mg/dl (65-105)
[2021-02-13] MEDS: RIVAROXABAN 15 MG TABLET PO (17:16)
--- NOTE | 2021-02-13 17:22 | PM.CNPUL ---
Assessment and Plan Assessment and plan (1) Obstructive sleep apnea: Code(s): G47.33 - Obstructive sleep apnea (adult) (pediatric) Status: Acute Assessment and Plan: He has a (+) AHI 25 on home sleep test February 09, 30% of the test with saturation below 88%. There are few central apneas 3% of the total however 79% of the apneas were unclassified. Obstructive apneas are not often mistaken for unclassified apneas. His main issue was the hypoxemia. Using O2 at night may improve his pulmonary hypertension and central sleep apnea. He needs to have a split night study after discharge. In the hospital,using O2 with sleep will help control central sleep apnea, nocturnal hypoxemia and ower extremity edema. (2) Pulmonary hypertension: Code(s): I27.20 - Pulmonary hypertension, unspecified Status: Acute Assessment and Plan: RVSP on echo 10/10/2020 = RVSP 58; cause is untreated sleep apnea and nocturnal hypoxemia. (3) Primary central sleep apnea: Code(s): G47.31 - Primary central sleep apnea Status: Acute Assessment and Plan: Suspected primary central sleep apnea; he had 79% unclassified apneas on his [facility]nea[facility] 02/09/2021, AHI 25, lowest sat 69%, 30% of the night below 88%. Central apneas comprised 3% of the total. Unclassified apneas were 79%. This would need to be confirmed in sleep alb with split night study. Start O2 at night which can decrease central apneas, correct hypoxemia nad decrease pulmonary hypertension. He will need O2 to go home. . History of Present Illness History of Present Illness Consult date: 02/13/21 Requesting physician: Anil Medina MD Reason for consult: obstructive sleep apnea Chief complaint: chf exacerbation Narrative: NEW: Khalif Yanez is a 80 year old man admitted with recurrent diastolic chf; he started having lower extremity leg swelling 6 months ago, has been admitted several times since. He had a portable home sleep test February 09 showing moderate sleep apnea with AHI 25, most events unclassified, so probably central and mixed apneas, not obstructive apneas. He desaturated to 69%, spent 30% of the night below 88%. He spent 4% of the night in Williams-Bai breathing, and this is consistent with his congestive heart failure. He does not snore, and his concurs. He goes to bed between 10:00 pm and 2:00 am, wakes once sometimes twice to urinate, has dreams although he does not always have dream recall; wakes with a dry mouth which he attributes to fluid restriction due to CKD. He wakes 6:00 - 7:00 am, sometimes refreshed, is tired in the day, naps most days for 30-45 minutes, usually after lunch. He does not consume caffeine. He does not have RLS discomfort in his legs, nor does he kick at night. He has not had a sleep study prior to the [facility]. DATA * 10/10/2020 echo: Left ventricular systolic function is normal, estimated at 65-70%. 4. There is mildly increased left ventricular wall thickness. 5. The left ventricular diastolic function is indeterminate. 6. Right ventricular chamber dimension is mildly enlarged. 7. Left atrial chamber dimension is moderately enlarged. 8. Right atrial chamber dimension is mildly enlarged. 9. There is mild mitral valve regurgitation. 10. There is mild tricuspid valve regurgitation. 11. Moderate pulmonary hypertension, estimated pulmonary arterial systolic pressure is 59 mmHg. 12. There is moderate pulmonic regurgitation. Review of Systems Review of Systems: All systems reviewed & are unremarkable except as noted in HPI and below PMFSH Past Medical History Medical History (Updated 02/13/21 @ 20:42 by Danielle Paredes MD) Atrial fibrillation B12 deficiency anemia BPH (benign prostatic hyperplasia) Chronic anticoagulation
[2021-02-13] MEDS: traMADol HCL (*CRX) 50 MG TABLET PO (18:36)
[2021-02-13 20:47] LABS: Glucose Point of Care 235 mg/dl (65-105)
[2021-02-13 22:00] VITALS: BP 116/61; PULSE 80; RESP 20; TEMP 37.5; O2SAT 98
[2021-02-14] MEDS: BUMETANIDE INJ 1 MG/4 ML VIAL IV PUSH ×3 (05:05→20:49)
[2021-02-14] MEDS: VANCOMYCIN ORAL 125 MG/2.5 ML SYRUP PO ×4 (05:05→23:22)
[2021-02-14 06:00] VITALS: BP 143/75; PULSE 75; RESP 18; TEMP 37.1; O2SAT 98
[2021-02-14 06:27] LABS: Hemoglobin 8.3 g/dL (14.0-18.0); Mean Corpuscular HGB Conc 30.7 g/dl (32-36); Mean Corpuscular Hemoglobin 26.7 pg (26-34); Mean Corpuscular Volume 86.8 fl (80-100); Mean Platelet Volume 10.2 fl (7.4-10.4); Platelet Count Result 186 k/mm3 (150-375); Red Blood Count 3.11 M/mm3 (4.6-6.20); Red Cell Distribution Width 18.5 % (11.5-14.5); White Blood Count 6.6 K/mm3 (4.5-10.0)
[2021-02-14 06:39] LABS: Albumin Level 2.4 g/dL (3.5-5.1); Anion Gap 7 mmol/L (8-16); Blood Urea Nitrogen 90 mg/dL (9-20); Carbon Dioxide 24 mmol/L (22-30); Chloride 107 mmol/L (98-107); Estimated CRCL calculation 22 ml/min; Estimated Glomerular Filt Rate 23; Glucose 135 mg/dL (75-110); Magnesium 1.8 mg/dL (1.6-2.3); Potassium 3.2 mmol/L (3.4-5.0); Sodium 138 mmol/L (137-145)
[2021-02-14 08:20] LABS: Glucose Point of Care 128 mg/dl (65-105)
--- NOTE | 2021-02-14 08:52 | PM.PNCARD ---
Progress Note: A&P Assessment and Plan (1) Bilateral edema of lower extremity: Code(s): R60.0 - Localized edema Status: Acute Assessment and Plan: Severe lower extremity edema secondary to heart failure and chronic venous insufficiency. (2) Acute on chronic diastolic CHF (congestive heart failure): Code(s): I50.33 - Acute on chronic diastolic (congestive) heart failure Status: Acute Assessment and Plan: Acute on chronic diastolic heart failure, mostly right-sided , but does have some left-sided CHF as well. Furosemide 40 mg b.i.d. does not appear to be enough diuretic. Received 1 dose of IV furosemide 40 mg in the emergency room with not much response Transitioned to metolazone 5 mg q.d. plus Bumex 1 mg q.8 Still has significant lower extremity edema. No shortness of breath, no crackles. Continue with current diuretic regimen. continue diuresis. Electrolyte imbalance. Give additional 40 mEq KCL now. Check magnesium level. (3) Atrial fibrillation: Code(s): I48.91 - Unspecified atrial fibrillation Status: Acute Assessment and Plan: Persistent atrial fibrillation, rate controlled, back on Xarelto. Previously had problems with anemia but that appears stable now. (4) CKD stage 3 secondary to diabetes: Code(s): E11.22 - Type 2 diabetes mellitus with diabetic chronic kidney disease; N18.30 - Chronic kidney disease, stage 3 unspecified Status: Acute Assessment and Plan: Check daily BMP Appreciate Dr. Crouch assistance. spironolactone has been added (5) Excessive daytime sleepiness: Code(s): G47.19 - Other hypersomnia Status: Acute Assessment and Plan: Apnea link showed AHI of 25. will have pulmonology see him while in the hospital to help facilitate and expedite his sleep apnea treatment Subjective Date/time seen: 02/14/21 08:52 Interval history: cardiology follow-up for CHF date of service 02/13/2021: he has no chest pain or shortness of breath. slowly improving. does have some diarrhea and is now C diff positive date of service 02/14/2021: Patient continues to feel well. His lower extremity edema is still severe but slowly improving. Review of Systems Constitutional: Constitutional: Reports fatigue Eyes: Eyes: Reports no additional eye complaints ENT: Denies lip swelling and Denies epistaxis Cardiovascular: Cardiovascular: Denies chest pain, Reports pedal edema, Reports leg edema, Denies lightheadedness, Denies dyspnea and Denies dyspnea on exertion Respiratory: Respiratory: Denies hemoptysis, Denies dyspnea and Denies dyspnea on exertion Gastrointestinal: Gastrointestinal: Denies abdominal pain, Denies hematochezia and Denies constipation Genitourinary: Genitourinary: Denies hematuria and Denies dysuria Musculoskeletal: Musculoskeletal: Reports no additional musculoskeletal complaints Integumentary/Breasts: Skin/Breast: Denies wounds Neurologic: Denies behavioral changes and Denies confusion Psychiatric: Psychiatric: Denies behavioral changes and Denies confusion Endocrine: Endocrine: Reports fatigue Hematologic/Lymphatic: Hematologic/Lymphatic: Denies easy bleeding Allergic/Immunologic: Allergic/Immunologic: Denies lip swelling Exam Narrative: Exam Narrative: Pleasant older man resting in bed Const: General: no acute distress; No confusion Orientation/consciousness: No confusion HENMT: General nose exam: no epistaxis Mouth: Yes moist mucous membranes Eyes: EOM: EOMs intact bilaterally Neck: Neck: supple and no JVD Resp: Effort & Inspection: normal respiratory effort Auscultation: clear to auscultation bilaterally Cardio: Rate: regular rate Rhythm: abnormal rhythm irregularly irregular Heart sounds: Murmur hea
[2021-02-14 08:53] VITALS: PULSE 75
[2021-02-14] MEDS: ATORVASTATIN 10 MG TABLET PO (08:53)
[2021-02-14] MEDS: carvediloL 12.5 MG TABLET PO ×2 (08:53→20:49)
[2021-02-14] MEDS: metOLazone 5 MG TABLET PO (08:53)
[2021-02-14] MEDS: MAGNESIUM OXIDE 400 MG TABLET PO (08:53)
[2021-02-14] MEDS: CYANOCOBALAMIN 1,000 MCG TABLET 1000 MCG PO (08:54)
[2021-02-14] MEDS: POTASSIUM CHLORIDE 20 MEQ TABLET PO ×2 (08:54→10:06)
[2021-02-14] MEDS: POTASSIUM CHLORIDE 20 MEQ TABLET.ER PO (08:54)
[2021-02-14] MEDS: PANTOPRAZOLE 40 MG TABLET PO (08:54)
[2021-02-14] MEDS: FERROUS SULFATE 324 MG TABLET PO ×2 (08:54→16:49)
[2021-02-14] MEDS: SPIRONOLACTONE 25 MG TABLET PO (08:54)
[2021-02-14] MEDS: traMADol HCL (*CRX) 50 MG TABLET PO ×2 (08:55→20:58)
--- NOTE | 2021-02-14 11:16 | PCNFU ---
Nutrition Follow-Up Complete: Nutrition Diagnosis: Increased nutritional needs (protein) related to unstageable pressure ulcer on coccyx as evidenced by wound nurse report. Nutrition Goal:Have patient meet estimated nutritional needs. Goal has been met. Nutrition recommendation: Continue with Heart Healthy diet and Titi (90 calories and 2.5 grams of protein) BID. Last recorded weight is 119.3 kg, which is 10lbs down from admission. Bowel Motility: Last documented today on 02/14. Patient is on Banatrol Plus BID to help with diarrhea. Labs Reviewed:Hgb(8.3), Hct(27), Alb(2.4), K(3.2), GFR(23), BUN(90),Cr(3.2), Glu(135) Meds Noted: Mylanta, Albuterol, Lipitor, Bisacodyl, Bumetanide, Coreg, Vitamin B12, Retacrit, Glucagon, Novolog, Magnesium Oxide, Zofran, Metolazone, Protonix, Potassium Chloride, Xarelto, Spironolactone, Ultram, Vancomycin Additional Notes: Patient has a pressure ulcer on coccyx. Patient reports he is no longer receiving Titi since a nurse told him he is on a fluid restriction and the Titi would 'put him over'. Contacting physician to clarify orders. Agree with diet orders, patient is consuming 100% of meals. Patient has no questions/ concerns at this time. Will follow up in 5 days.
[2021-02-14 11:18] VITALS: O2SAT 97
--- NOTE | 2021-02-14 11:25 | PM.PNPUL ---
Progress Note: A&P Assessment and Plan (1) Obstructive sleep apnea: Code(s): G47.33 - Obstructive sleep apnea (adult) (pediatric) Status: Acute Assessment and Plan: He has a (+) AHI 25 on home sleep test February 09, 30% of the test with saturation below 88%. There are few central apneas 3% of the total however 79% of the apneas were unclassified. Obstructive apneas are not often mistaken for unclassified apneas. His main issue was the hypoxemia. Using O2 at night may improve his pulmonary hypertension and central sleep apnea. He needs to have a split night study after discharge. In the hospital,using O2 with sleep will help control central sleep apnea, nocturnal hypoxemia and ower extremity edema. (2) Pulmonary hypertension: Code(s): I27.20 - Pulmonary hypertension, unspecified Status: Acute Assessment and Plan: RVSP on echo 10/10/2020 = RVSP 58; cause is untreated sleep apnea and nocturnal hypoxemia. (3) Primary central sleep apnea: Code(s): G47.31 - Primary central sleep apnea Status: Acute Assessment and Plan: Suspected primary central sleep apnea; he had 79% unclassified apneas on his ApneaLink 02/09/2021, AHI 25, lowest sat 69%, 30% of the night below 88%. Central apneas comprised 3% of the total. Unclassified apneas were 79%. This would need to be confirmed in sleep alb with split night study. Start O2 at night which can decrease central apneas, correct hypoxemia nad decrease pulmonary hypertension. He will need O2 to go home. . Subjective Date/time seen: 02/14/21 11:25 follow up visit : 81 year old man with central sleep apnea, today is his . is at the bedside. He is sitting in chair with legs elevated, on the bed. He is open to the idea of using O2 at night for his sleep apnea. He needs to have a sleep study however is not excited about using PAP therapy. He is not short of breath. Legs remain swollen. He feels much better today than he did at admission. He is on contact isolation for C diff with diarrhea. Review of Systems Review of Systems: All systems reviewed & are unremarkable except as noted in HPI and below Exam Const: General: comfortable and no acute distress Eyes: General: appearance normal, both eyes and all related structures Resp: Auscultation: clear to auscultation bilaterally and diminished lung sounds Cardio: Rate: regular rate Rhythm: abnormal rhythm irregularly irregular Skin: General skin exam: normal color Neuro: Speech: normal speech Extrem: General: pedal edema (4+ ) bilaterally Psych: Mental Status: mental status grossly normal Objective Data Vital Signs Vital Signs: Vital Signs - 24 hr 02/13/21 13:46 02/13/21 22:00 02/14/21 06:00 Temperature 36.6 C 37.5 C 37.1 C Pulse Rate 68 80 75 Respiratory Rate 18 20 18 Blood Pressure 119/69 116/61 143/75 H Pulse Oximetry 100 98 98 02/14/21 08:53 02/14/21 11:18 Temperature Pulse Rate 75 Respiratory Rate Blood Pressure Pulse Oximetry 97 Intake/Output Intake/Output: Intake & Output 02/11/21 02/12/21 02/13/21 02/14/21 23:59 23:59 23:59 23:59 Intake Total 2433 313 7862 320 Output Total 775 8248 754 5943 Balance 775 -448 510 -795 Meds/Results Medications: Active Medications Generic Name Dose Route Start Last Admin Trade Name Freq PRN Reason Stop Dose Admin Acetaminophen 650 mg 02/09/21 02:35 Acetaminophen 325 Mg Tablet PO Q4H PRN Mild Pain (1-3) Or Fever Al Hydrox/Mg Hydrox/Simethicone 30 ml 02/08/21 13:57 Mag Hydrox/Al Hydrox/Simeth 30 Ml Udc PO Q6H PRN Indigestion Albuterol 2 puff 02/09/21 02:35 Albuterol Sulfate (*Sp) Aerosol 1 Puff INHALATION Q6HRT PRN Shortness Of Breath Atorvastatin Calciu
--- NOTE | 2021-02-14 12:16 | PCNSR ---
On 02/14/21, the student, Ciara Molina, provided care and completed [facility] documentation on this patient. I have reviewed the student's documentation and agree with the findings.
[2021-02-14 12:28] LABS: Glucose Point of Care 207 mg/dl (65-105)
[2021-02-14] MEDS: INSULIN ASPART (*BKC) 100 UNITS/ML SUB-Q (12:56)
[2021-02-14 14:00] VITALS: BP 112/59; PULSE 71; RESP 20; TEMP 36.2; O2SAT 98
--- NOTE | 2021-02-14 15:11 | PM.IMPN ---
Progress Note: A&P Assessment and Plan (1) Acute on chronic diastolic CHF (congestive heart failure): Code(s): I50.33 - Acute on chronic diastolic (congestive) heart failure Status: Acute Assessment and Plan: Echo in October 2020 showing EF 65-70% with indeterminate diastolic function, mildly enlarged RV and moderate pulmonary HTN with moderate pulmonic regurgitation. BNP 15K (repeat 18.6K). CXR 02/08 here showing pulmonary vascular congestion. Consider that this is more right sided failure with the pulmonary HTN. Currently on IV Bumex, spironolactone and metolazone. K 3.2 this morning and replacement ordered. Encouraged elevation of the LE and fluid restriction. Encourage increased activity; continue PT/OT. Fluid balance mildly negative but has been having diarrhea. Renal function noted. Monitor renal function closely. Appreciate Cardiology input. (2) Elevated troponin: Code(s): R77.8 - Other specified abnormalities of plasma proteins Status: Acute Assessment and Plan: Troponin mildly elevated at 0.054 but flat. No symptoms of ischemia. EKG showing ST T wave changes but appear to be more chronic. Elevated troponins consistent with nonischemic myocardial injury related to his CHF. (3) Atrial fibrillation: Code(s): I48.91 - Unspecified atrial fibrillation Status: Acute Assessment and Plan: Patient with chronic atrial fibrillation. He is rate controlled with Coreg which has been continued. Continue Xarelto for anticoagulation. (4) Stage 3b chronic kidney disease: Code(s): N18.32 - Chronic kidney disease, stage 3b Status: Chronic Assessment and Plan: BUN 57 and creatinine 2.3 on admission. This is close to his baseline. With much needed aggressive diuresis for the CHF, his creatinine has become more elevated to 3.2 today. Appreciate nephrology consultation and recommendations. Continue to replace potassium as needed. Continue to monitor. (5) Pulmonary hypertension: Code(s): I27.20 - Pulmonary hypertension, unspecified Status: Acute Assessment and Plan: Patient with known pulmonary hypertension. Apnea link performed 02/08- showing AHI of 25 in RI of 26. Pulmonary feels patient has central apnea and would benefit from at least nocturnal O2. Patient is agreeable to wear this at night. This is being arranged. (6) Excessive daytime sleepiness: Code(s): G47.19 - Other hypersomnia Status: Acute Assessment and Plan: No hx of KEV prior to admission. May benefit from full outpatient sleep study if he would be agreeable to wear a NIV. As above. (7) Diabetes: Code(s): E11.9 - Type 2 diabetes mellitus without complications Status: Chronic Assessment and Plan: A1c 7.2. Glucose reviewed on 02/14 Glucose mostly well controlled. Not on his Victoza and Actos at this time. Continue AccuCheks covering with sliding scale. Hypoglycemia protocol available as needed. (8) Anemia: Code(s): D64.9 - Anemia, unspecified Status: Chronic Assessment and Plan: Hgb this year running mostly in the 7-9 range. Hgb 9.1 on admission and has remained stable in he 8-9 range. Work up last month showing: Iron studies with Fe 20, TIBC 201 and Sat 10%. Transferrin 127, STR 2.1 and Ferritin 168. His Folate normal but B12 level low at 237 and currently on B12 replacement. Guaiac positive. SPEP showing M-spike. UPEP shows a low level of monoclonal peak. 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 Colonoscopy showed internal hemorrhoids and EGD was unremarkable in January 2021. Follows with Dr Pelletier. Continue to monitor hemoglobin. Transfuse as necessary. Continue B12 and iron replacement. (9) C. difficile diarrhea: Code(s): A04.72 - Enterocolitis due to Clostridium difficile, not specified as recurrent Status: Acute Assessment and Plan: Patient has developed
--- NOTE | 2021-02-14 15:28 | PCRCNOTE ---
NOCTURNAL HOME O2 SET UP WITH [facility]. PHONE NUMBER [phone]. PT TO CALL PRIOR TO DISCHARGE FOR SET UP.
--- NOTE | 2021-02-14 16:17 | PM.PNNEP ---
Progress Note: A&P Assessment and Plan (1) Chronic kidney disease, stage 3b: Code(s): N18.32 - Chronic kidney disease, stage 3b Status: Chronic Assessment and Plan: due to biopsy proven diabetic and hypertensive nephrosclerosis creatinine fluctuates due to fluid status -- lower creatinines secondary to dilution and higher creatinines due to diuresis to attain euvolemia baseline creatinine probably around 2.5mg/dl if not higher hard to balance this issue of swelling/volume overload versus higher creatinine and azotemia/uremia - concern that these issues could potentiate the need for dialysis - however, this clearly a situation where we have to accept a higher creatinine to achieve some stability in volume status continue diuresis as tolerated - consider switch to oral diuretics soon (given worsening azotemia) follow repeat labs and I/Os (2) Fluid overload, unspecified: Code(s): E87.70 - Fluid overload, unspecified Status: Chronic Assessment and Plan: due to acute on chronic diastolic heart failure primarily localized in his lower extremities on bumex, metolazone, and spironolactone replete K+ as needed follow I/Os and daily weights Cardiology following (3) Pulmonary hypertension: Code(s): I27.20 - Pulmonary hypertension, unspecified Status: Chronic Assessment and Plan: as noted by testing to date likely secondary to his sleep apnea but likely worsened by volume overload unable to tolerated CPAP -- further testing as an outpatient(?) (4) Anemia: Code(s): D64.9 - Anemia, unspecified Status: Chronic Assessment and Plan: due in part by CKD however, also noted to be guaiac positive Epogen 3x/week while hospitalized follow trend of H/H (5) Hypertension: Code(s): I10 - Essential (primary) hypertension Status: Chronic Assessment and Plan: reasonable control at this time follow trend of hemodynamics (6) C. difficile diarrhea: Code(s): A04.72 - Enterocolitis due to Clostridium difficile, not specified as recurrent Status: Acute Assessment and Plan: as noted by stool studies on oral vancomycin (7) Diabetes: Code(s): E11.9 - Type 2 diabetes mellitus without complications Status: Chronic Assessment and Plan: follow accuchecks on SSI Will continue to follow. Subjective Date/time seen: 02/14/21 16:17 Overall, seems to be doing better; swelling/edema continues to improve with diuresis; less loose stools today in comparison to yesterday; no other acute complaints voiced; seen by Pulmonary yesterday with recommendations noted; no apparent distress to report. C. diff toxin positive and started on oral vancomycin. Exam Narrative: Exam Narrative: General: WD/WN male/female in NAD Heart: normal S1 and S2; IRRR, no rub Lungs: clear to auscultation Abdomen: soft, nontender, nondistended, positive bowel sounds Extremities: no cyanosis or clubbing; 2 - 3+ edema Skin: no rash or nodules Objective Data Vital Signs Vital Signs: Vital Signs Temp Pulse Resp BP Pulse Ox 02/14/21 14:00 36.2 C L 71 20 112/59 L 98 02/14/21 11:18 97 02/14/21 08:53 75 02/14/21 06:00 37.1 C 75 18 143/75 H 98 02/13/21 22:00 37.5 C 80 20 116/61 98 Intake/Output Intake/Output: Intake & Output 02/11/21 02/12/21 02/13/21 02/14/21 23:59 23:59 23:59 23:59 Intake Total 0671 081 7933 560 Output Total 775 7457 641 2872 Balance 775 -650 510 -540 Meds/Results Medications: Active Medications Generic Name Dose Route Start Last Admin Trade Name Freq PRN Reason Stop Dose Admin Acetaminophen 650 mg 02/09/21 02:35 Acetaminophen 325 Mg Tablet PO Q4H PRN Mild Pain (1-3) Or Fever Al Hydrox/Mg Hydrox/Simethicone 30 ml 02/08/21 13:57 Mag Hydrox/Al Hydrox/Simeth 30 Ml Udc PO Q6H PRN Indigestion
--- NOTE | 2021-02-14 16:17 | P.PNNP_ITS ---
Progress Note: A&P Assessment and Plan (1) Chronic kidney disease, stage 3b: Code(s): N18.32 - Chronic kidney disease, stage 3b Status: Chronic Assessment and Plan: * due to biopsy proven diabetic and hypertensive nephrosclerosis * creatinine fluctuates due to fluid status -- lower creatinines secondary to dilution and higher creatinines due to diuresis to attain euvolemia * baseline creatinine probably around 2.5mg/dl if not higher * hard to balance this issue of swelling/volume overload versus higher creati nine and azotemia/uremia - concern that these issues could potentiate the need for di alysis - however, this clearly a situation where we have to accept a higher creatinine to achieve some stability in volume status * continue diuresis as tolerated - consider switch to oral diuretics soon (given worsening azotemia) * follow repeat labs and I/Os (2) Fluid overload, unspecified: Code(s): E87.70 - Fluid overload, unspecified Status: Chronic Assessment and Plan: * due to acute on chronic diastolic heart failure * primarily localized in his lower extremities * on bumex, metolazone, and spironolactone * replete K+ as needed * follow I/Os and daily weights * Cardiology following (3) Pulmonary hypertension: Code(s): I27.20 - Pulmonary hypertension, unspecified Status: Chronic Assessment and Plan: * as noted by testing to date * likely secondary to his sleep apnea but likely worsened by volume overload * unable to tolerated CPAP -- further testing as an outpatient(?) (4) Anemia: Code(s): D64.9 - Anemia, unspecified Status: Chronic Assessment and Plan: * due in part by CKD * however, also noted to be guaiac positive * Epogen 3x/week while hospitalized * follow trend of H/H (5) Hypertension: Code(s): I10 - Essential (primary) hypertension Status: Chronic Assessment and Plan: * reasonable control at this time * follow trend of hemodynamics (6) C. difficile diarrhea: Code(s): A04.72 - Enterocolitis due to Clostridium difficile, not specified as recurrent Status: Acute Assessment and Plan: * as noted by stool studies * on oral vancomycin (7) Diabetes: Code(s): E11.9 - Type 2 diabetes mellitus without complications Status: Chronic Assessment and Plan: * follow accuchecks * on SSI Will continue to follow. Subjective Date/time seen: 02/14/21 16:17 Overall, seems to be doing better; swelling/edema continues to improve with diuresis; less loose stools today in comparison to yesterday; no other acute complaints voiced; seen by Pulmonary yesterday with recommendations noted; no apparent distress to report. C. diff toxin positive and started on oral vancomycin. Exam Narrative: Exam Narrative: General: WD/WN male/female in NAD Heart: normal S1 and S2; IRRR, no rub Lungs: clear to auscultation Abdomen: soft, nontender, nondistended, positive bowel sounds Extremities: no cyanosis or clubbing; 2 - 3+ edema Skin: no rash or nodules Objective Data Vital Signs Vital Signs: Vital Signs Temp Pulse Resp BP Pulse Ox 02/14/21 14:00 36.2 C L 71 20 112/59 L 98 02/14/21 11:18 97 02/14/21 08:53 75 02/14/21 06:00 37.1 C 75 18 143/75 H 98 02/13/21 22:00 37.5 C 80 20 116/61 98
[2021-02-14] MEDS: RIVAROXABAN 15 MG TABLET PO (16:50)
[2021-02-14 17:35] LABS: Glucose Point of Care 200 mg/dl (65-105)
[2021-02-14 18:35] LABS: Glucose Point of Care 162 mg/dl (65-105)
[2021-02-14 21:06] LABS: Glucose Point of Care 157 mg/dl (65-105)
[2021-02-14 22:00] VITALS: BP 101/65; PULSE 82; RESP 20; TEMP 36.6; O2SAT 99
[2021-02-15] MEDS: VANCOMYCIN ORAL 125 MG/2.5 ML SYRUP PO ×3 (05:21→17:34)
[2021-02-15] MEDS: BUMETANIDE INJ 1 MG/4 ML VIAL IV PUSH (05:21)
[2021-02-15 05:45] VITALS: BP 135/74; PULSE 85; RESP 16; TEMP 36.3; O2SAT 96
[2021-02-15 06:40] LABS: Hematocrit 28.2 % (42.0-52.0); Hemoglobin 8.4 g/dL (14.0-18.0); Mean Corpuscular HGB Conc 29.8 g/dl (32-36); Mean Corpuscular Hemoglobin 26.3 pg (26-34); Mean Corpuscular Volume 88.1 fl (80-100); Mean Platelet Volume 10.7 fl (7.4-10.4); Platelet Count Result 192 k/mm3 (150-375); Red Cell Distribution Width 18.4 % (11.5-14.5); White Blood Count 5.3 K/mm3 (4.5-10.0)
[2021-02-15 06:55] LABS: Albumin Level 2.3 g/dL (3.5-5.1); Anion Gap 6 mmol/L (8-16); Blood Urea Nitrogen 99 mg/dL (9-20); Carbon Dioxide 26 mmol/L (22-30); Chloride 107 mmol/L (98-107); Estimated CRCL calculation 20 ml/min; Estimated Glomerular Filt Rate 21; Glucose 125 mg/dL (75-110); Magnesium 1.7 mg/dL (1.6-2.3); Potassium 3.3 mmol/L (3.4-5.0); Sodium 139 mmol/L (137-145)
[2021-02-15 07:53] LABS: Glucose Point of Care 131 mg/dl (65-105)
[2021-02-15 08:25] VITALS: O2SAT 97
--- NOTE | 2021-02-15 08:36 | PM.PNCARD ---
Progress Note: A&P Assessment and Plan (1) Bilateral edema of lower extremity: Code(s): R60.0 - Localized edema <PHILIPPE Garg - Last Filed: 02/15/21 10:14> Status: Acute <PHILIPPE Garg - Last Filed: 02/15/21 10:14> Assessment and Plan: Severe lower extremity edema secondary to heart failure and chronic venous insufficiency. <PHILIPPE Garg - Last Filed: 02/15/21 10:14> (2) Acute on chronic diastolic CHF (congestive heart failure): Code(s): I50.33 - Acute on chronic diastolic (congestive) heart failure <PHILIPPE Garg - Last Filed: 02/15/21 10:14> Status: Acute <PHILIPPE Garg - Last Filed: 02/15/21 10:14> Assessment and Plan: Acute on chronic diastolic heart failure, mostly right-sided , but does have some left-sided CHF as well. Furosemide 40 mg b.i.d. does not appear to be enough diuretic. Received 1 dose of IV furosemide 40 mg in the emergency room with not much response Transitioned to metolazone 5 mg q.d. plus Bumex 1 mg q.8 Still has significant lower extremity edema. No shortness of breath, no crackles. Shift diuretic regimen from IV bumex to PO. Discontinue metolazone. Electrolyte imbalance. Magnesium and potasium are being repleted. <PHILIPPE Garg - Last Filed: 02/15/21 10:14> (3) Atrial fibrillation: Code(s): I48.91 - Unspecified atrial fibrillation <PHILIPPE Garg - Last Filed: 02/15/21 10:14> Status: Acute <PHILIPPE Garg - Last Filed: 02/15/21 10:14> Assessment and Plan: Persistent atrial fibrillation, rate controlled, back on Xarelto. Previously had problems with anemia but that appears stable now. <PHILIPPE Garg - Last Filed: 02/15/21 10:14> (4) CKD stage 3 secondary to diabetes: Code(s): E11.22 - Type 2 diabetes mellitus with diabetic chronic kidney disease; N18.30 - Chronic kidney disease, stage 3 unspecified <PHILIPPE Garg - Last Filed: 02/15/21 10:14> Status: Acute <PHILIPPE Garg - Last Filed: 02/15/21 10:14> Assessment and Plan: Check daily BMP Appreciate Dr. Crouch assistance. spironolactone has been added <PHILIPPE Garg - Last Filed: 02/15/21 10:14> (5) Excessive daytime sleepiness: Code(s): G47.19 - Other hypersomnia <PHILIPPE Garg - Last Filed: 02/15/21 10:14> Status: Acute <PHILIPPE Garg - Last Filed: 02/15/21 10:14> Assessment and Plan: Apnea link showed AHI of 25. will have pulmonology see him while in the hospital to help facilitate and expedite his sleep apnea treatment <PHILIPPE Garg - Last Filed: 02/15/21 10:14> Subjective Date/time seen: 02/15/21 08:36 <PHILIPPE Garg - Last Filed: 02/15/21 10:14> Interval history: cardiology follow-up for CHF date of service 02/13/2021: he has no chest pain or shortness of breath. slowly improving. does have some diarrhea and is now C diff positive date of service 02/14/2021: Patient continues to feel well. His lower extremity edema is still severe but slowly improving. Date of service 02/15/2021: No complaints today. He says his legs feel less tight and painful. No chest pain, no shortness of breath. <PHILIPPE Garg - Last Filed: 02/15/21 10:14> Review of Systems Constitutional: Constitutional: Reports fatigue <PHILIPPE Garg - Last Filed: 02/15/21 10:14> Eyes: Eyes: Reports no additional eye complaints <PHILIPPE Garg - Last Filed: 02/15/21 10:14> ENT: Denies lip swelling and Denies epistaxis <PHILIPPE Garg - Last Filed: 02/15/21 10:14> Cardiovascular: Cardiovascular: Denies chest pain, Reports pedal edema, Reports leg
[2021-02-15] MEDS: ATORVASTATIN 10 MG TABLET PO (09:19)
[2021-02-15] MEDS: CYANOCOBALAMIN 1,000 MCG TABLET 1000 MCG PO (09:19)
[2021-02-15] MEDS: MAGNESIUM OXIDE 400 MG TABLET PO (09:19)
[2021-02-15] MEDS: metOLazone 5 MG TABLET PO (09:19)
[2021-02-15] MEDS: FERROUS SULFATE 324 MG TABLET PO ×2 (09:19→17:34)
[2021-02-15] MEDS: PANTOPRAZOLE 40 MG TABLET PO (09:20)
[2021-02-15] MEDS: SPIRONOLACTONE 25 MG TABLET PO (09:20)
[2021-02-15 09:21] VITALS: PULSE 80
[2021-02-15] MEDS: carvediloL 12.5 MG TABLET PO (09:21)
[2021-02-15] MEDS: POTASSIUM CHLORIDE 20 MEQ TABLET.ER PO (11:08)
[2021-02-15] MEDS: EPOETIN ALFA-EPBX 10,000 UNITS/ML VIAL 10000 UNITS SUB-Q (11:08)
[2021-02-15 12:08] LABS: Glucose Point of Care 149 mg/dl (65-105)
[2021-02-15 14:00] VITALS: BP 110/57; PULSE 73; RESP 18; TEMP 36.5; O2SAT 100
--- NOTE | 2021-02-15 14:57 | PCOTNOTE ---
Attempted to see patient this pm, however patient already completed ADLs with 's assistance. Pt declined upper extremity exercises due to shoulder pain.
--- NOTE | 2021-02-15 16:20 | PM.DS ---
DS: Admitting Diagnosis Admitting Diagnosis Admitting Diagnosis: Increasing edema DS: Discharge Diagnosis Discharge Diagnosis (1) Acute on chronic diastolic CHF (congestive heart failure): Code(s): I50.33 - Acute on chronic diastolic (congestive) heart failure Status: Acute Assessment and Plan: Echo in October 2020 showing EF 65-70% with indeterminate diastolic function, mildly enlarged RV and moderate pulmonary HTN with moderate pulmonic regurgitation. BNP 15K (repeat was 18.6K). CXR here showing pulmonary vascular congestion. [place] that he had acute on chronic diastolic CHF with a component of right sided failure. Treated with IV Bumex, spironolactone and metolazone. Potassium was low at times requiring replacement. Dick hose, elevation of legs and fluid restriction ordered. He worked with PT/OT. Cardiology and nephrology were involved in his care. He had clinical improvement and felt that his edema was better. He was up walking to the BR. He denies feeling SOB. (2) Elevated troponin: Code(s): R77.8 - Other specified abnormalities of plasma proteins Status: Acute Assessment and Plan: Troponin mildly elevated at 0.054 but flat. No symptoms of ischemia. EKG showing ST T wave changes but appear to be more chronic. Elevated troponins consistent with nonischemic myocardial injury related to his CHF. (3) Atrial fibrillation: Code(s): I48.91 - Unspecified atrial fibrillation Status: Acute Assessment and Plan: Patient with chronic atrial fibrillation. He remained rate controlled with Coreg. We continued Xarelto for anticoagulation. (4) Stage 3b chronic kidney disease: Code(s): N18.32 - Chronic kidney disease, stage 3b Status: Chronic Assessment and Plan: BUN 57 and creatinine 2.3 on admission. This is close to his baseline. With much needed aggressive diuresis for the diastolic heart dysfunction, creatinine elevated to 3.5 with BUN 99. Nephrology followed along. Will need close observation. (5) Pulmonary hypertension: Code(s): I27.20 - Pulmonary hypertension, unspecified Status: Acute Assessment and Plan: Patient with known pulmonary hypertension. Apnea link performed 02/08- showing AHI of 25 in RI of 26. Discussed with patient about trying NIV and he was agreeable but refused to wear it when offered. Pulmonary consulted and feel patient has central apnea and would benefit from at least nocturnal O2. Patient was agreeable and home O2 2L at night was arranged. (6) Excessive daytime sleepiness: Code(s): G47.19 - Other hypersomnia Status: Acute Assessment and Plan: No hx of KEV. May benefit from full outpatient sleep study if he would be agreeable to wear a NIV. As above. (7) Diabetes: Code(s): E11.9 - Type 2 diabetes mellitus without complications Status: Chronic Assessment and Plan: A1c 7.2. Glucose remained well controlled. Not on his Victoza and Actos at this time. He was monitored with AccuCheks covering with sliding scale. Hypoglycemia protocol available as needed. No plans to continue Actos. (8) Anemia: Code(s): D64.9 - Anemia, unspecified Status: Chronic Assessment and Plan: Hgb this year running mostly in the 7-9 range. Hgb 9.1 on admission and has remained stable in he 8-9 range. Work up last month showing: Iron studies with Fe 20, TIBC 201 and Sat 10%. Transferrin 127, STR 2.1 and Ferritin 168. His Folate normal but B12 level low at 237 and currently on B12 replacement. Guaiac positive. SPEP showing M-spike. UPEP shows a low level of monoclonal peak. 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 Colonoscopy showed internal hemorrhoids and EGD was unremarkable in January 2021.We continued B12 and iron replacement. Follows with Dr Pelletier. (9) C. difficile diarrhea: Code(s): A04.72 - Enterocolitis due to Clostridium diff
[2021-02-15 16:52] LABS: Glucose Point of Care 182 mg/dl (65-105)
[2021-02-15] MEDS: RIVAROXABAN 15 MG TABLET PO (17:34)
[2021-02-15] MEDS: BUMETANIDE 1 MG TABLET 2 MG PO (17:34)
--- NOTE | 2021-02-22 12:09 | PC.NURSE ---
Ova and Parasites are negative. Dr. Wyatt xiao.
== END 2021-02-15 18:18 | disposition home health service (06) | DRG 291 ==
LOC: ANHED 13:57 → ANHIMU 14:19 → ANH3MEDSUR 02-09 12:57
PROVIDERS: Emergency Medicine Emergency Medical Services; Internal Medicine Cardiovascular Disease; Internal Medicine Nephrology; Admitting Provider Internal Medicine; Emergency Provider Emergency Medicine; PCP Family Medicine; Visit Provider Nurse Practitioner
DX: I13.0 Hypertensive heart and chronic kidney disease with heart failure and stage 1 through stage 4 chronic kidney disease, or unspecified chronic kidney disease (principal); I50.33 Acute on chronic diastolic (congestive) heart failure; A04.72 Enterocolitis due to Clostridium difficile, not specified as recurrent; I48.19 Other persistent atrial fibrillation; S26.99XA Other injury of heart, unspecified with or without hemopericardium, initial encounter; N18.32 Chronic kidney disease, stage 3b; E11.22 Type 2 diabetes mellitus with diabetic chronic kidney disease; D51.3 Other dietary vitamin B12 deficiency anemia; N40.0 Benign prostatic hyperplasia without lower urinary tract symptoms; E78.49 Other hyperlipidemia; I87.2 Venous insufficiency (chronic) (peripheral); D50.9 Iron deficiency anemia, unspecified; D63.1 Anemia in chronic kidney disease; K42.9 Umbilical hernia without obstruction or gangrene; G47.31 Primary central sleep apnea; Z96.653 Presence of artificial knee joint, bilateral; Z79.01 Long term (current) use of anticoagulants; Z98.42 Cataract extraction status, left eye; Z98.41 Cataract extraction status, right eye; Z87.891 Personal history of nicotine dependence; E66.9 Obesity, unspecified; Z68.37 Body mass index [BMI] 37.0-37.9, adult
CPT/HCPCS: 36415; 71045; 74018; 76775; 80048; 80053; 80069; 81003; 82274; 82550; 82607; 82728; 82746; 82948; 83036; 83540; 83550; 83735; 83880; 84132; 84484; 85025; 85027; 85046; 85610; 85730; 87015; 87040; 87045; 87046; 87177; 87209; 87269; 87272; 87324; 87427; 89055; 93005; 94762; 96365; 96375; 96376; 97110; 97116; 97161; 97165; 99285; A9270; G0378; J1815; J1940; J3475; Q5106

== ENCOUNTER 2021-02-22 13:21 | Outpatient (NON) | payer MEDICARE, SELFPAY ==
[2021-02-22 13:54] LABS: Albumin Level 2.8 g/dL (3.5-5.1); Anion Gap 6 mmol/L (8-16); Blood Urea Nitrogen 68 mg/dL (9-20); Carbon Dioxide 37 mmol/L (22-30); Chloride 100 mmol/L (98-107); Estimated Glomerular Filt Rate 35; Glucose 189 mg/dL (65-110); Magnesium 1.3 mg/dL (1.6-2.3); Phosphorus 3.5 mg/dL (2.5-4.5); Potassium 3.1 mmol/L (3.4-5.0); Sodium 143 mmol/L (137-145)
== END 2021-02-22 13:22 | disposition home or self-care (01) ==
PROVIDERS: PCP Family Medicine; Visit Provider Internal Medicine
DX: I50.33 Acute on chronic diastolic (congestive) heart failure (principal)
CPT/HCPCS: 80069; 83735

== ENCOUNTER 2021-03-01 11:56 | Outpatient (CLI) | payer MEDICARE, SELFPAY ==
[2021-03-01 12:29] LABS: Basophils Percent Auto 0.3 % (0.2-1.2); Eosinophils Percent Auto 0.1 % (0-4.4); Hematocrit 29.5 % (42.0-52.0); Hemoglobin 8.9 g/dL (14.0-18.0); Immature Granulocyte Absolute 0.06 K/mm3 (0.00-0.031); Immature Granulocyte Percent A 0.6 % (0-0.5); Lymphocytes Absolute Auto 1.31 K/mm3 (0.9-3.2); Lymphocytes Percent Auto 12.7 % (18.3-44.2); Mean Corpuscular HGB Conc 30.2 g/dl (32-36); Mean Corpuscular Hemoglobin 26.6 pg (26-34); Mean Corpuscular Volume 88.1 fl (80-100); Mean Platelet Volume 10.6 fl (7.4-10.4); Monocytes Absolute Auto 0.7 K/mm3 (0.1-0.6); Monocytes Percent Auto 7.1 % (2.6-8.5); Neutrophils Absolute Auto 8.2 K/mm3 (1.3-6.7); Neutrophils Percent Auto 79.2 % (45.5-73.1); Platelet Count Result 178 k/mm3 (150-375); Red Blood Count 3.35 M/mm3 (4.6-6.20); Red Cell Distribution Width 18.9 % (11.5-14.5); White Blood Count 10.3 K/mm3 (4.5-10.0)
[2021-03-01 12:49] LABS: NT Pro B Type Natriuretic Pept 18200 pg/mL (5-100)
[2021-03-01 13:19] LABS: Iron 12 ug/dL (49-181)
[2021-03-01 13:29] LABS: Percent Iron Saturation 7 % (20-50)
[2021-03-01 13:43] LABS: Alanine Aminotransferase 27 U/L (4-50); Albumin Level 2.9 g/dL (3.5-5.1); Alkaline Phosphatase 95 U/L (38-126); Anion Gap 10 mmol/L (8-16); Aspartate Amino Transferase 40 U/L (17-59); Bilirubin,Total 0.8 mg/dL (0.2-1.3); Blood Urea Nitrogen 50 mg/dL (9-20); Calcium 8.5 mg/dL (8.4-10.2); Carbon Dioxide 34 mmol/L (22-30); Chloride 97 mmol/L (98-107); Estimated Glomerular Filt Rate 39; Glucose 208 mg/dL (65-110); Magnesium 1.4 mg/dL (1.6-2.3); Potassium 2.7 mmol/L (3.4-5.0); Sodium 141 mmol/L (137-145)
[2021-03-01 13:46] LABS: Folic Acid 9.5 ng/mL (2.76->20)
== END 2021-03-01 11:57 | disposition home or self-care (01) ==
PROVIDERS: PCP Family Medicine; Visit Provider Physician Assistant
DX: D50.9 Iron deficiency anemia, unspecified (principal); D51.9 Vitamin B12 deficiency anemia, unspecified; D64.9 Anemia, unspecified; E11.22 Type 2 diabetes mellitus with diabetic chronic kidney disease; E61.2 Magnesium deficiency; I48.91 Unspecified atrial fibrillation; I50.33 Acute on chronic diastolic (congestive) heart failure; N18.30 Chronic kidney disease, stage 3 unspecified
CPT/HCPCS: 36415; 80053; 82607; 82728; 82746; 83540; 83550; 83735; 83880; 85025

== ENCOUNTER 2021-03-27 14:28 | Outpatient (NON) | payer MEDICARE, SELFPAY ==
[2021-03-27 15:18] LABS: Alanine Aminotransferase 26 U/L (4-50); Albumin Level 2.9 g/dL (3.5-5.1); Alkaline Phosphatase 103 U/L (38-126); Anion Gap 8 mmol/L (8-16); Aspartate Amino Transferase 30 U/L (17-59); Bilirubin,Total 0.2 mg/dL (0.2-1.3); Blood Urea Nitrogen 61 mg/dL (9-20); Calcium 8.5 mg/dL (8.4-10.2); Carbon Dioxide 26 mmol/L (22-30); Chloride 99 mmol/L (98-107); Estimated Glomerular Filt Rate 35; Glucose 158 mg/dL (65-110); Potassium 3.9 mmol/L (3.4-5.0); Sodium 133 mmol/L (137-145)
[2021-03-27 16:02] LABS: Hemoglobin A1C 7.2 % (<5.7)
== END 2021-03-27 14:29 | disposition home or self-care (01) ==
PROVIDERS: PCP Family Medicine; Visit Provider Family Medicine
DX: E11.22 Type 2 diabetes mellitus with diabetic chronic kidney disease (principal); I50.33 Acute on chronic diastolic (congestive) heart failure; I13.0 Hypertensive heart and chronic kidney disease with heart failure and stage 1 through stage 4 chronic kidney disease, or unspecified chronic kidney disease; N18.32 Chronic kidney disease, stage 3b
CPT/HCPCS: 80053; 83036

== ENCOUNTER 2021-05-19 08:52 | Outpatient (CLI) | payer MEDICARE, SELFPAY | END 2021-05-19 08:53 | disposition home or self-care (01) | LOC: ANHLAB 08:52 | PROVIDERS: PCP Family Medicine; Visit Provider Nurse Practitioner Family | DX: A04.72 Enterocolitis due to Clostridium difficile, not specified as recurrent (principal) | CPT/HCPCS: 87324 ==

== ENCOUNTER 2021-07-05 14:28 | Outpatient (NON) | payer MEDICARE, SELFPAY | END 2021-07-05 14:29 | disposition home or self-care (01) | PROVIDERS: PCP Family Medicine; Visit Provider Physician Assistant | DX: A04.72 Enterocolitis due to Clostridium difficile, not specified as recurrent (principal) | CPT/HCPCS: 87324 ==

== ENCOUNTER 2021-08-16 13:48 | Outpatient (CLI) | payer MEDICARE, SELFPAY ==
--- NOTE | ~2021-08-16 | US_ITS ---
EXAMINATION: US venous doppler [facility] DATE: 08/16/2021 14:53 INDICATION: Left upper limb swelling. TECHNIQUE: Grayscale ultrasound images without and with compression and Doppler ultrasound images of the left upper extremity veins were obtained. COMPARISON: None. FINDINGS: The visualized portions of the left internal jugular vein, subclavian vein, axillary vein, brachial v eins, basilic vein, cephalic vein, radial vein, and ulnar vein are patent. IMPRESSION: 1. No deep venous thrombosis. Reviewed, dictated and finalized at location B. Y/CADDIE SUPERVISOR
== END 2021-08-16 13:49 | disposition home or self-care (01) ==
LOC: ANHIMG 13:49
PROVIDERS: PCP Family Medicine; Visit Provider Internal Medicine Cardiovascular Disease
DX: M79.89 Other specified soft tissue disorders (principal)
CPT/HCPCS: 93971

== ENCOUNTER 2021-08-25 09:59 | Outpatient (CLI) | payer MEDICARE, SELFPAY ==
[2021-08-25 10:49] LABS: Alanine Aminotransferase 21 U/L (4-50); Albumin Level 3.4 g/dL (3.5-5.1); Alkaline Phosphatase 128 U/L (38-126); Anion Gap 10 mmol/L (8-16); Aspartate Amino Transferase 29 U/L (17-59); Bilirubin,Total 0.6 mg/dL (0.2-1.3); Blood Urea Nitrogen 33 mg/dL (9-20); Calcium 8.8 mg/dL (8.4-10.2); Carbon Dioxide 28 mmol/L (22-30); Chloride 100 mmol/L (98-107); Estimated Glomerular Filt Rate 35; Glucose 117 mg/dL (65-110); Potassium 3.7 mmol/L (3.4-5.0); Sodium 138 mmol/L (137-145)
[2021-08-25 11:22] LABS: Hemoglobin A1C 6.8 % (<5.7)
== END 2021-08-25 10:00 | disposition home or self-care (01) ==
PROVIDERS: PCP Family Medicine; Visit Provider Physician Assistant
DX: I27.20 Pulmonary hypertension, unspecified (principal); N18.32 Chronic kidney disease, stage 3b; E11.9 Type 2 diabetes mellitus without complications
CPT/HCPCS: 36415; 80053; 83036

== ENCOUNTER 2022-01-14 12:29 | Outpatient (CLI) | payer MEDICARE, SELFPAY ==
[2022-01-14 12:57] LABS: Hematocrit 36.3 % (42.0-52.0); Hemoglobin 11.3 g/dL (14.0-18.0); Mean Corpuscular HGB Conc 31.1 g/dl (32-36); Mean Corpuscular Volume 93.3 fl (80-100); Mean Platelet Volume 10.5 fl (7.4-10.4); Platelet Count Result 133 k/mm3 (150-375); Red Blood Count 3.89 M/mm3 (4.6-6.20); Red Cell Distribution Width 17.1 % (11.5-14.5); White Blood Count 5.2 K/mm3 (4.5-10.0)
[2022-01-14 12:58] LABS: Appearance Urine Slightly Cloudy (Clear); Bilirubin Urine Negative (Negative); Blood Urine 2+ (Negative); Color Urine Yellow (Yellow); Glucose Urine UA Negative (Negative); Ketones Urine Negative (Negative); Leukocyte Esterase Ur Negative LEU/UL (NEGATIVE); Nitrate Urine Negative (Negative); Protein Urine 2+ mg/dL (Negative); Urobilinogen Urine 0.2 mg/dL (<2.0); pH Urine 6.5 (5.0-9.0)
[2022-01-14 13:03] LABS: Add Urine Microscopic? YES; Mucus Urine Rare /lpf; WBC Urine 0-3 /hpf (0-3)
[2022-01-14 13:06] LABS: Hemoglobin A1C 6.6 % (<5.7)
[2022-01-14 13:09] LABS: Alanine Aminotransferase 26 U/L (6-50); Alkaline Phosphatase 140 U/L (38-126); Anion Gap 6 mmol/L (8-16); Aspartate Amino Transferase 32 U/L (17-59); Blood Urea Nitrogen 44 mg/dL (9-20); Calcium 8.8 mg/dL (8.4-10.2); Carbon Dioxide 30 mmol/L (22-30); Chloride 105 mmol/L (98-107); Cholesterol 108 mg/dL (0-200); Estimated Glomerular Filt Rate 37; Glucose 256 mg/dL (65-110); HDL Direct 37 mg/dL; Potassium 4.3 mmol/L (3.4-5.0); Sodium 141 mmol/L (137-145); Triglycerides 59 mg/dL (<150)
[2022-01-14 13:09] LABS: Creatinine Urine 40.3 mg/dL
[2022-01-14 13:19] LABS: LDL Cholesterol Direct 41 mg/dL
[2022-01-14 14:01] LABS: MALB Creatinine Ratio 1237.5 mg/g (0-30); Microalbumin Urine Random 498.7 mg/L (0-16.7)
== END 2022-01-14 12:30 | disposition home or self-care (01) ==
LOC: ANHLAB 12:31
PROVIDERS: PCP Family Medicine; Visit Provider Family Medicine
DX: E11.69 Type 2 diabetes mellitus with other specified complication (principal); E78.5 Hyperlipidemia, unspecified; R53.83 Other fatigue; N18.32 Chronic kidney disease, stage 3b; I12.9 Hypertensive chronic kidney disease with stage 1 through stage 4 chronic kidney disease, or unspecified chronic kidney disease
CPT/HCPCS: 36415; 80053; 80061; 81001; 82043; 83036; 84443; 85027

== ENCOUNTER 2022-04-19 14:58 | Outpatient (CLI) | payer MEDICARE, SELFPAY ==
[2022-04-19 15:38] LABS: Albumin Level 3.5 g/dL (3.5-5.1); Anion Gap 12 mmol/L (8-16); Blood Urea Nitrogen 40 mg/dL (9-20); Calcium 8.3 mg/dL (8.4-10.2); Carbon Dioxide 29 mmol/L (22-30); Chloride 99 mmol/L (98-107); Estimated Glomerular Filt Rate 41; Glucose 141 mg/dL (65-110); Phosphorus 3.4 mg/dL (2.5-4.5); Potassium 3.4 mmol/L (3.4-5.0); Sodium 140 mmol/L (137-145)
[2022-04-19 15:39] LABS: Creatinine Urine 69.2 mg/dL; Total Protein Urine Random 197 mg/dL; Ur Ttl Prot Creatinine Ratio 2.85 mg/mg (0-0.20)
[2022-04-19 16:07] LABS: Vitamin D 25 Hydroxy 16.9 ng/mL
== END 2022-04-19 14:59 | disposition home or self-care (01) ==
LOC: ANHLAB 14:59
PROVIDERS: PCP Family Medicine; Visit Provider Internal Medicine Nephrology
DX: I12.9 Hypertensive chronic kidney disease with stage 1 through stage 4 chronic kidney disease, or unspecified chronic kidney disease (principal); N18.32 Chronic kidney disease, stage 3b; E11.29 Type 2 diabetes mellitus with other diabetic kidney complication; N25.81 Secondary hyperparathyroidism of renal origin
CPT/HCPCS: 36415; 80069; 82306; 82570; 83970; 84156

== ENCOUNTER 2022-05-16 09:00 | Outpatient (CLI) | payer MEDICARE, SELFPAY ==
[2022-05-16 09:49] LABS: Alanine Aminotransferase 37 U/L (6-50); Albumin Level 3.5 g/dL (3.5-5.1); Alkaline Phosphatase 170 U/L (38-126); Anion Gap 10 mmol/L (8-16); Aspartate Amino Transferase 41 U/L (17-59); Bilirubin,Total 0.6 mg/dL (0.2-1.3); Blood Urea Nitrogen 53 mg/dL (9-20); Calcium 8.3 mg/dL (8.4-10.2); Carbon Dioxide 31 mmol/L (22-30); Chloride 100 mmol/L (98-107); Estimated Glomerular Filt Rate 39; Glucose 256 mg/dL (65-110); Potassium 3.5 mmol/L (3.4-5.0); Sodium 141 mmol/L (137-145)
[2022-05-16 10:10] LABS: Hemoglobin A1C 7.2 % (<5.7)
== END 2022-05-16 09:01 | disposition home or self-care (01) ==
LOC: ANHLAB 09:03
PROVIDERS: PCP Family Medicine; Visit Provider Family Medicine
DX: E11.9 Type 2 diabetes mellitus without complications (principal)
CPT/HCPCS: 36415; 80053; 83036

== ENCOUNTER 2022-08-20 10:34 | Outpatient (CLI) | payer MEDICARE, SELFPAY ==
[2022-08-20 10:54] LABS: Hematocrit 33.3 % (42.0-52.0); Mean Corpuscular Hemoglobin 28.1 pg (26-34); Mean Corpuscular Volume 93.5 fl (80-100); Mean Platelet Volume 10.6 fl (7.4-10.4); Platelet Count Result 181 k/mm3 (150-375); Red Blood Count 3.56 M/mm3 (4.6-6.20); Red Cell Distribution Width 14.8 % (11.5-14.5); White Blood Count 5.1 K/mm3 (4.5-10.0)
[2022-08-20 11:04] LABS: Alanine Aminotransferase 23 U/L (6-50); Albumin Level 3.3 g/dL (3.5-5.1); Alkaline Phosphatase 140 U/L (38-126); Anion Gap 6 mmol/L (8-16); Aspartate Amino Transferase 31 U/L (17-59); Bilirubin,Total 0.6 mg/dL (0.2-1.3); Blood Urea Nitrogen 55 mg/dL (9-20); Calcium 8.1 mg/dL (8.4-10.2); Carbon Dioxide 30 mmol/L (22-30); Chloride 105 mmol/L (98-107); Cholesterol 85 mg/dL (0-200); Estimated Glomerular Filt Rate 35; Glucose 227 mg/dL (65-110); HDL Direct 32 mg/dL; Potassium 3.7 mmol/L (3.4-5.0); Sodium 141 mmol/L (137-145); Triglycerides 47 mg/dL (<150)
[2022-08-20 11:16] LABS: LDL Cholesterol Direct 39 mg/dL
[2022-08-20 11:23] LABS: Appearance Urine Clear (Clear); Bilirubin Urine Negative (Negative); Blood Urine 2+ (Negative); Color Urine Yellow (Yellow); Glucose Urine UA Negative (Negative); Ketones Urine Negative (Negative); Leukocyte Esterase Ur Negative LEU/UL (NEGATIVE); Nitrate Urine Negative (Negative); Protein Urine 3+ mg/dL (Negative); Specific Grav Ur 1.015 (1.001-1.035); Urobilinogen Urine 0.2 mg/dL (<2.0)
[2022-08-20 11:34] LABS: Bacteria Urine Trace /hpf; Mucus Urine Rare /lpf; Squamous Epithelial Cell Urine Rare /hpf (Few); WBC Urine 0-3 /hpf (0-3)
[2022-08-20 11:35] LABS: Add Urine Microscopic? YES
[2022-08-20 12:12] LABS: Hemoglobin A1C 6.9 % (<5.7)
[2022-08-20 12:41] LABS: MALB Creatinine Ratio 1291.4 mg/g (0-30); Microalbumin Urine Random 994.4 mg/L (0-16.7)
== END 2022-08-20 10:35 | disposition home or self-care (01) ==
PROVIDERS: PCP Family Medicine; Referring Provider Internal Medicine Nephrology; Visit Provider Family Medicine
DX: N18.32 Chronic kidney disease, stage 3b (principal); E55.9 Vitamin D deficiency, unspecified; E11.22 Type 2 diabetes mellitus with diabetic chronic kidney disease; I50.9 Heart failure, unspecified; I13.0 Hypertensive heart and chronic kidney disease with heart failure and stage 1 through stage 4 chronic kidney disease, or unspecified chronic kidney disease; E11.69 Type 2 diabetes mellitus with other specified complication; E78.5 Hyperlipidemia, unspecified
CPT/HCPCS: 36415; 80053; 80061; 81001; 82043; 83036; 84443; 85027

== ENCOUNTER 2022-10-14 14:43 | Outpatient (CLI) | payer MEDICARE, SELFPAY ==
--- NOTE | ~2022-10-14 | XR_ITS ---
EXAMINATION: XR chest 2V Exam Date/Time: 10/14/2022 14:52 CDT HISTORY: Shortness of breath Comparison: 02/08/2021 and 01/08/2021. RESULT: Lines, tubes, and devices: Stimulator leads terminate over the thoracic spine. Lungs and pleura: Senescent changes and scarring. Prominent central pulmonary arteries as can be see n with pulmonary arterial hypertension. Cardiomediastinal silhouette: Stable. Other: No acute osseous or upper abdominal finding. IMPRESSION: No acute cardiopulmonary process. Reviewed, dictated and finalized at location K.
== END 2022-10-14 14:44 | disposition home or self-care (01) ==
LOC: ANHIMG 14:45
PROVIDERS: PCP Family Medicine; Visit Provider Internal Medicine Cardiovascular Disease
DX: R06.02 Shortness of breath (principal)
CPT/HCPCS: 71046

== ENCOUNTER 2022-12-24 12:33 | Outpatient (CLI) | payer MEDICARE, SELFPAY ==
[2022-12-24 13:16] LABS: Albumin Level 3.5 g/dL (3.5-5.1); Anion Gap 6 mmol/L (8-16); Blood Urea Nitrogen 55 mg/dL (9-20); Calcium 8.3 mg/dL (8.4-10.2); Carbon Dioxide 31 mmol/L (22-30); Chloride 103 mmol/L (98-107); Estimated Glomerular Filt Rate 33; Glucose 141 mg/dL (65-110); Phosphorus 3.9 mg/dL (2.5-4.5); Sodium 140 mmol/L (137-145)
[2022-12-24 13:28] LABS: Creatinine Urine 58.5 mg/dL; Total Protein Urine Random 82 mg/dL
[2022-12-24 13:42] LABS: Vitamin D 25 Hydroxy 34.5 ng/mL
== END 2022-12-24 12:34 | disposition home or self-care (01) ==
LOC: ANHLAB 12:34
PROVIDERS: PCP Family Medicine; Visit Provider Internal Medicine Nephrology
DX: I12.9 Hypertensive chronic kidney disease with stage 1 through stage 4 chronic kidney disease, or unspecified chronic kidney disease (principal); N18.32 Chronic kidney disease, stage 3b; E11.22 Type 2 diabetes mellitus with diabetic chronic kidney disease; N25.81 Secondary hyperparathyroidism of renal origin; E55.9 Vitamin D deficiency, unspecified
CPT/HCPCS: 36415; 80069; 82306; 82570; 83970; 84156

== ENCOUNTER 2023-01-25 08:30 | Outpatient (CLI) | payer MEDICARE, SELFPAY ==
[2023-01-25 09:18] LABS: Alanine Aminotransferase 18 U/L (6-50); Albumin Level 3.5 g/dL (3.5-5.1); Alkaline Phosphatase 129 U/L (38-126); Anion Gap 4 mmol/L (8-16); Aspartate Amino Transferase 27 U/L (17-59); Bilirubin,Total 0.9 mg/dL (0.2-1.3); Blood Urea Nitrogen 63 mg/dL (9-20); Calcium 8.1 mg/dL (8.4-10.2); Carbon Dioxide 30 mmol/L (22-30); Chloride 105 mmol/L (98-107); Estimated Glomerular Filt Rate 33; Glucose 148 mg/dL (65-110); Potassium 3.8 mmol/L (3.4-5.0); Sodium 139 mmol/L (137-145)
[2023-01-25 11:54] LABS: Hemoglobin A1C 7.3 % (<5.7)
== END 2023-01-25 08:31 | disposition home or self-care (01) ==
LOC: ANHLAB 08:32
PROVIDERS: PCP Family Medicine; Visit Provider Family Medicine
DX: E11.40 Type 2 diabetes mellitus with diabetic neuropathy, unspecified (principal); I10 Essential (primary) hypertension
CPT/HCPCS: 36415; 80053; 83036

== ENCOUNTER 2023-01-29 11:23 | Outpatient (CLI) | payer MEDICARE, SELFPAY ==
[2023-01-29 12:04] LABS: Uric Acid 10.8 mg/dL (3.5-8.5)
== END 2023-01-29 11:24 | disposition home or self-care (01) ==
PROVIDERS: PCP Family Medicine; Visit Provider Family Medicine
DX: M10.9 Gout, unspecified (principal)
CPT/HCPCS: 36415; 84550

== ENCOUNTER 2023-03-26 09:52 | Outpatient (CLI) | payer MEDICARE, SELFPAY ==
[2023-03-26 10:42] LABS: SARS-CoV-2 RNA PCR Positive (Negative)
== END 2023-03-26 09:53 | disposition home or self-care (01) ==
LOC: ANHLAB 09:53
PROVIDERS: PCP Family Medicine; Visit Provider Physician Assistant
DX: U07.1 COVID-19 (principal)
CPT/HCPCS: 87635

== ENCOUNTER 2023-04-29 10:35 | Outpatient (CLI) | payer MEDICARE, SELFPAY ==
[2023-04-29 11:15] LABS: Alanine Aminotransferase 18 U/L (6-50); Albumin Level 3.3 g/dL (3.5-5.1); Alkaline Phosphatase 138 U/L (38-126); Anion Gap 8 mmol/L (8-16); Aspartate Amino Transferase 29 U/L (17-59); Bilirubin,Total 1.1 mg/dL (0.2-1.3); Blood Urea Nitrogen 59 mg/dL (9-20); Calcium 8.4 mg/dL (8.4-10.2); Carbon Dioxide 28 mmol/L (22-30); Chloride 103 mmol/L (98-107); Estimated Glomerular Filt Rate 35; Glucose 202 mg/dL (65-110); Potassium 3.9 mmol/L (3.4-5.0); Sodium 139 mmol/L (137-145)
[2023-04-29 11:16] LABS: Albumin Level 3.3 g/dL (3.5-5.1); Anion Gap 8 mmol/L (8-16); Blood Urea Nitrogen 57 mg/dL (9-20); Calcium 8.4 mg/dL (8.4-10.2); Carbon Dioxide 26 mmol/L (22-30); Chloride 104 mmol/L (98-107); Estimated Glomerular Filt Rate 32; Glucose 201 mg/dL (65-110); Sodium 138 mmol/L (137-145)
[2023-04-29 11:16] LABS: Creatinine Urine 64.7 mg/dL; Total Protein Urine Random 59 mg/dL; Ur Ttl Prot Creatinine Ratio 0.91 mg/mg (0-0.20)
[2023-04-29 11:32] LABS: Hemoglobin A1C 7.8 % (<5.7)
== END 2023-04-29 10:36 | disposition home or self-care (01) ==
PROVIDERS: PCP Family Medicine; Referring Provider Internal Medicine Nephrology; Visit Provider Family Medicine
DX: E11.22 Type 2 diabetes mellitus with diabetic chronic kidney disease (principal); I12.9 Hypertensive chronic kidney disease with stage 1 through stage 4 chronic kidney disease, or unspecified chronic kidney disease; N18.32 Chronic kidney disease, stage 3b; N25.81 Secondary hyperparathyroidism of renal origin; E11.40 Type 2 diabetes mellitus with diabetic neuropathy, unspecified
CPT/HCPCS: 36415; 80053; 80069; 82570; 83036; 83970; 84156

== ENCOUNTER 2023-06-27 14:11 | Inpatient (IN) | payer MEDICARE, SELFPAY ==
[2023-06-27] VITALS (18 sets, daily range): BP systolic 112–125; BP diastolic 61–79; PULSE 51–83; RESP 15–20; TEMP 36.2–36.3; O2SAT 98–100
--- NOTE | ~2023-06-27 | US_ITS ---
EXAMINATION: US renal BI DATE: 06/29/2023 17:53 INDICATION: elevated creatinine TECHNIQUE: Multiple grayscale and Doppler ultrasound images of the kidneys were obtained. COMPARISON: 02/11/2021. FINDINGS: The right kidney measures 10.4 x 6.0 x 6.1 cm. The left kidney measures 9.9 x 5.7 x 6.5 cm. The kidne ys demonstrate normal parenchymal echogenicity. There is moderate left hydronephrosis. Partially dist ended urinary bladder, ureteral jets not visualized during the examination. IMPRESSION: Moderate left hydronephrosis. Reviewed, dictated and finalized at location K. K HANDLER FLOORPERSON
--- NOTE | ~2023-06-27 | US_ITS ---
Procedure: Duplex Doppler examination of the bilateral carotids. Indication: Left-sided weakness Technique: Real time, color-flow and pulse wave Doppler examination of the bilateral carotids was performed. Findings: Overton scale ultrasonography of the right neck demonstrated suspected mixed soft and calcified plaque a t the mid right internal carotid artery. There was demonstration of normal color-flow and Doppler wav eforms within the right common, internal and external carotid arteries. The peak systolic velocities in the right common, internal and external carotid arteries were demonstrated to be 82 cm/sec, 76 cm/ sec and 74 cm/sec respectively. The right ICA/CCA ratio was 1.0.The proximal right internal carotid a rtery demonstrates 0% stenosis relative to the normal distal artery lumen diameter. Overton scale sonography of the left neck demonstrated possible mixed soft and calcified plaque at the m id left internal carotid artery. There was demonstration of normal color-flow and wave forms within t he left common, internal and external carotid arteries. The peak systolic velocities in the left comm on, internal and external carotid arteries were demonstrated to be 82cm/sec, 78 cm/sec and 121 cm/sec respectively. The left ICA/CCA ratio was 1.0. The proximal left internal carotid artery demonstrates 0% stenosis relative to the normal distal artery lumen diameter. There was antegrade flow demonstrated in the bilateral vertebral arteries. Impression: No hemodynamically significant stenosis of the bilateral internal carotid arteries. Antegrade flow in the bilateral vertebral arteries. Note: The methodology used is an indirect measurement validated against a direct method (such as the NASCET criteria) that compares diameters at the stenosis to the distal ICA. Reviewed, dictated and finalized at location M. MACHINE OPERATOR Impression: No hemodynamically significant stenosis of the bilateral internal carotid arter ies. Antegrade flow in the bilateral vertebral arteries. Note: The methodology used is an indirect measurement validated against a direct meth od (such as the NASCET criteria) that compares diameters at the stenosis to the distal ICA.
--- NOTE | ~2023-06-27 | XR_ITS ---
XR chest 1V portable DATE: 06/27/2023 15:40 INDICATION: Edema TECHNIQUE: Portable upright AP chest on 06/23/2023 at 1531 hours COMPARISON: 10/14/2022 PA and lateral chest FINDINGS: Heart size is not optimally evaluated on AP projection. There is pulmonary vascular congestion and redistribution. There are Alyce B-lines consistent with p ulmonary interstitial edema and prominence of minor fissure consistent with subpleural edema. Probable chronic discoid scarring, mid left lung. There is minimal if any pleural effusion. There is aortic unfolding. Diffuse osteopenia. Degenerative spurring of the thoracic spine. Thoracic spinal electrodes are noted . IMPRESSION: Congestive changes, pulmonary interstitial and subpleural edema Reviewed, dictated and finalized at location A. NICAL STAFF ENGINEER
--- NOTE | ~2023-06-27 | CT_ITS ---
EXAMINATION: CT abdomen pelvis wo con DATE: 06/30/2023 15:31 INDICATION: Hydronephrosis. TECHNIQUE: Computed tomography (CT) of the abdomen and pelvis was performed without intravenous contr ast. Automated exposure control and iterative reconstruction technique were employed. The dose-length product was 1447.60 mGy-cm. COMPARISON: CT abdomen and pelvis 01/13/2021, ultrasound 06/29/2023 FINDINGS: The visualized portions of the lung bases demonstrate mild atelectasis. There is mild scarr ing in paraspinal right lower lobe. No pleural effusion. Cardiomegaly is noted. There are coronary ar renzo calcifications. No pericardial effusion. There are cysts in the liver measuring up to 13 mm. The re is a gallstone in the gallbladder which is normal in size. There is a 4.1 cm hypodense mass in the spleen. There are cysts in the kidneys measuring up to 4.9 cm on the right. There is a 15 mm mass in right kidney measuring soft tissue attenuation. There is a 3.1 cm mass in left kidney measuring soft tissue attenuation. The prostate is mildly enlarged. There is diverticulosis of the colon without ev idence of diverticulitis. There is an umbilical hernia containing nonobstructed small bowel. There is trace ascites. There is edema of the body wall and intra-abdominal fat. There are no pathologically enlarged lymph nodes. Epidural electrodes are noted. There is severe lumbar spondylosis. There are br idging endplate osteophytes at multiple levels in the spine, consistent with diffuse idiopathic skele isabel hyperostosis (DISH). IMPRESSION: 1. No hydronephrosis. 2. Bilateral kidney masses measuring up to 3.1 cm on the left which may be hemorrhagic cysts or less likely neoplasms. Abdomen MRI without and with contrast is recommended. 3. Umbilical hernia containing nonobstructed small bowel. Reviewed, dictated and finalized at location A. HBOARD INSERTER IMPRESSION: 1. No hydronephrosis. 2. Bilateral kidney masses measuring up to 3.1 cm on the left which may be hemo rrhagic cysts or less likely neoplasms. Abdomen MRI without and with contrast i s recommended. 3. Umbilical hernia containing nonobstructed small bowel.
--- NOTE | ~2023-06-27 | CT_ITS ---
EXAMINATION: CT abdomen pelvis wo con DATE: 07/09/2023 20:15 INDICATION: left lower quad pain TECHNIQUE: Computed tomography (CT) of the abdomen and pelvis was performed without intravenous contr ast. Automated exposure control and iterative reconstruction technique were employed. The dose-length product was 1443.52 mGy-cm. COMPARISON: None. FINDINGS: Exam limited by beam hardening from arm positioning and lack of contrast. Lower thorax: Cardiomegaly. Coronary artery calcification. The tip of a catheter terminates at the ca voatrial junction. Bibasilar scar/atelectasis. Liver: Subcentimeter hypodensities in the left lobe, too small to characterize but may represent cyst s or hemangiomas. Biliary/Gallbladder: The gallbladder is contracted. Gallstones present including in the gallbladder n bira. Pericholecystic fluid and inflammatory change. No bile duct dilation. Pancreas: No mass or duct dilation. Spleen: 4.2 cm splenic cyst. Adrenals:No mass. Kidneys: Bilateral cortical thinning. 3.4 cm indeterminate density left midpole mass. 15 mm indetermi jorge density right upper pole mass. 4.8 cm exophytic right midpole simple cyst. 1.7 cm exophytic left midpole cyst. No obstructive calcification. No hydronephrosis. GI tract: No small or large bowel dilation. Appendix not visualized. Diverticulosis without diverticu litis. Mesentery/Peritoneum: No mass or free air. Mesenteric edema. Trace fluid in the bilateral paracolic g utters. Retroperitoneum: No mass. Atherosclerotic abdominal aortic and/or arterial calcifications. Pelvis: Marked bladder wall thickening in a partially distended urinary bladder. Mild prostatomegaly. Soft Tissues: Moderate body wall edema. Moderate umbilical hernia containing fat and fluid. Left glut eal stimulator with leads that enter the canal at L1 and terminate in the lower thoracic spine. Bones: No acute osseous finding. Osseous lumbar fusion from L2-L5. IMPRESSION: Cholelithiasis, pericholecystic fluid and apparent pericholecystic inflammatory change. Correlate wit h right upper quadrant pain and biliary labs. Consider right upper quadrant ultrasound for further ev aluation. 3.4 cm indeterminate density left midpole renal mass. Indeterminate density 15 mm right upper pole re nal lesion. Prior recommendation for abdomen MRI without and with contrast is unchanged. Mild diffuse mesenteric edema and trace ascites. Moderate body wall edema. Cystitis versus bladder wall thickening from outlet obstruction/incomplete distention. Reviewed, dictated and finalized at location K. TRIC TRACK SWITCH MAINTAINER IMPRESSION: Cholelithiasis, pericholecystic fluid and apparent pericholecystic inflammatory change. Correlate with right upper quadrant pain and biliary labs. Consider ri [facility] upper quadrant ultrasound for further evaluation. 3.4 cm indeterminate density left midpole renal mass. Indeterminate density 15 mm right upper pole renal lesion. Prior recommendation for abdomen MRI without and with contrast is unchanged. Mild diffuse mesenteric edema and trace ascites. Moderate body wall edema. Cystitis versus bladder wall thickening from outlet obstruction/incomplete dist ention.
--- NOTE | ~2023-06-27 | US_ITS ---
EXAMINATION: US right upper quadrant DATE: 07/10/2023 08:45 INDICATION: Recent-appearing gallbladder with gallstones TECHNIQUE: Multiple grayscale and Doppler ultrasound images of the abdomen were obtained. COMPARISON: None FINDINGS: Pancreas is unable to be visualized. Liver has normal echogenicity and contour, with a smooth surface . There are a couple anechoic hepatic cysts each measuring 1.4 cm. No intrahepatic biliary duct dilat ion suspected. Portal venous flow was seen in the hepatopetal, normal direction Doppler waveform with increased pulsatility which can be seen in the setting of tricuspid regurgitation, right heart failu re or other causes of elevated right heart pressures. There is edematous wall thickening of the gallb ladder which measures up to 6 mm in thickness. The gallbladder is however not frankly dilated measuri ng up to 3 cm in maximal diameter. A small echogenic and shadowing mobile gallstone is seen in the de pendent gallbladder. Sonographic Atkins sign was reported as negative by the ios architect.Common bile duct measures 3-4 mm maximal diameter which is within normal limits. There is a trace amount of perih epatic ascites. IMPRESSION: 1. Gallbladder wall thickening with mobile gallstone but without gallbladder dilation or positive son ographic Atkins sign to more specifically suggest acute cholecystitis. The presence of trace amount o f ascites, increased portal venous pulsatility and cardiomegaly on prior CT together all suggest that the gallbladder wall thickening is much more likely cardiogenic in etiology related to tricuspid reg urgitation, right heart failure or other causes of elevated right heart pressures. If there is high c linical suspicion for acute cholecystitis could consider HIDA scan for further evaluation. Reviewed, dictated and finalized at location A. S OPERATOR IMPRESSION: 1. Gallbladder wall thickening with mobile gallstone but without gallbladder di lation or positive sonographic Atkins sign to more specifically suggest acute c holecystitis. The presence of trace amount of ascites, increased portal venous pulsatility and cardiomegaly on prior CT together all suggest that the gallblad [place] wall thickening is much more likely cardiogenic in etiology related to tric uspid regurgitation, right heart failure or other causes of elevated right hear t pressures. If there is high clinical suspicion for acute cholecystitis could consider HIDA scan for further evaluation.
--- NOTE | ~2023-06-27 | NM_ITS ---
EXAMINATION: NM hepatobiliary wo pharm DATE: 07/14/2023 13:29 INDICATION: Abdominal pain. COMPARISON: CT abdomen and pelvis 07/09/2023 TECHNIQUE: 5.2 mCi Tc-99m mebrofenin (Choletec) was administered intravenously. Scintigraphic images of the abdomen were obtained for one hour. Then, the patient drank 8 oz Ensure, and imaging was cont inued for 60 minutes. FINDINGS: There is normal clearance of radiotracer from the blood pool. There is homogeneous tracer u ptake by the liver. Activity progresses to the bowel and gallbladder. Gallbladder ejection fraction (GBEF) was 94%. Note that with this technique, normal GBEF >= 33%. IMPRESSION: 1. Normal hepatobiliary scintigraphy. Reviewed, dictated and finalized at location A. FLEXER
--- NOTE | ~2023-06-27 | XR_ITS ---
EXAMINATION: XR chest 1V portable Exam Date/Time: 07/09/2023 18:00 [employer] HISTORY: fever Comparison: 07/04/2023. RESULT: Lines, tubes, and devices: Dual-lumen right IJ dialysis catheter terminating at the cavoatrial junct ion. Stimulator leads project over the lower thoracic spine. Lungs and pleura: Somewhat low volume crowding. Left midlung discoid atelectasis versus scar. Mild b ilateral interstitial opacities. Streaky bibasilar atelectasis/scar. Cardiomediastinal silhouette: Stable. Other: No acute osseous or upper abdominal finding. IMPRESSION: Mild initial edema. Reviewed, dictated and finalized at location K. ENTER SHIP IMPRESSION: Mild initial edema.
--- NOTE | 2023-06-27 14:51 | ECG_ITS ---
Measurements Intervals [place] Rate: 62 P: AR: 0 QRS: -20 QRSD: 152 T: 261 QT: 477 QTc: 487 Interpretive Statements ATRIAL FIBRILLATION RIGHT BUNDLE BRANCH BLOCK BASELINE ARTIFACT- V5 ABNORMAL ECG COMPARED TO ECG 02/08/2021 11:24:20 RIGHT BUNDLE-BRANCH BLOCK NOW PRESENT Electronically Signed On 06-27-2023 19:48:09 SOCIALLY RESPONSIBLE INVESTMENT ADVISER by Neo Nieto D.O.
[2023-06-27 16:11] LABS: Basophils Percent Auto 0.6 % (0.2-1.2); Eosinophils Absolute Auto 0.1 K/mm3 (0-0.3); Eosinophils Percent Auto 1.3 % (0-4.4); Hematocrit 24.1 % (42.0-52.0); Immature Granulocyte Absolute 0.03 K/mm3 (0.00-0.031); Immature Granulocyte Percent A 0.6 % (0-0.5); Lymphocytes Absolute Auto 0.76 K/mm3 (0.9-3.2); Lymphocytes Percent Auto 14.4 % (18.3-44.2); Mean Corpuscular Hemoglobin 24.6 pg (26-34); Mean Corpuscular Volume 84.6 fl (80-100); Mean Platelet Volume 11.8 fl (7.4-10.4); Monocytes Absolute Auto 0.7 K/mm3 (0.1-0.6); Monocytes Percent Auto 13.9 % (2.6-8.5); Neutrophils Absolute Auto 3.6 K/mm3 (1.3-6.7); Neutrophils Percent Auto 69.2 % (45.5-73.1); Platelet Count Result 128 k/mm3 (150-375); Red Blood Count 2.85 M/mm3 (4.6-6.20); Red Cell Distribution Width 21.2 % (11.5-14.5); White Blood Count 5.3 K/mm3 (4.5-10.0)
[2023-06-27 16:22] LABS: Alanine Aminotransferase 15 U/L (6-50); Albumin Level 3.2 g/dL (3.5-5.1); Alkaline Phosphatase 109 U/L (38-126); Anion Gap 13 mmol/L (8-16); Aspartate Amino Transferase 23 U/L (17-59); Bilirubin,Total 0.9 mg/dL (0.2-1.3); Blood Urea Nitrogen 111 mg/dL (9-20); Calcium 7.9 mg/dL (8.4-10.2); Carbon Dioxide 26 mmol/L (22-30); Chloride 95 mmol/L (98-107); Estimated CRCL calculation 20 ml/min; Estimated Glomerular Filt Rate 23; Glucose 183 mg/dL (65-110); Sodium 134 mmol/L (137-145)
[2023-06-27 16:23] LABS: Lactic Acid Reflex 1.6 mmol/L (0.7-2.0)
[2023-06-27 16:30] LABS: NT Pro B Type Natriuretic Pept 16400 pg/mL (19.9-100)
[2023-06-27 16:37] LABS: Anisocytosis 2+ (NORMAL); Hypochromasia 1+ (NORMAL); Platelet Estimate Decreased (Adequate); Schistocytes None Seen (NORMAL)
--- NOTE | 2023-06-27 17:20 | ED.GENADULT ---
HPI - General Adult General Chief complaint: Recheck/Abnormal Lab/Rx Stated complaint: sent by PCP for gaining weight Time Seen by Provider: 06/27/23 14:33 History of Present Illness HPI narrative: 83-year-old male with history of CHF, anemia presents to the emergency department for evaluation fluid overload. Patient has been working closely with his primary care physician and auto dealer in an attempt to diurese him as outpatient. Patient reports he has had worsening shortness of breath and fluid overload. patient reports that Cardiology recommended he be admitted for inpatient diuresis. Related Data Home Medications Medication Instructions Recorded Confirmed cholecalciferol (vitamin D3) 50 50 mcg PO DAILY 12/26/22 06/18/23 mcg (2,000 unit) capsule Allergies Allergy/AdvReac Type Severity Reaction Status Date / Time No Known Allergies Allergy Verified 06/27/23 14:11 Review of Systems Review of Systems: All systems reviewed & are unremarkable except as noted in HPI and below PMFSH Past Medical History Medical History Atrial fibrillation B12 deficiency anemia BPH (benign prostatic hyperplasia) Chronic anticoagulation Chronic kidney disease, stage 3b CKD stage 3 secondary to diabetes Congestive heart failure Echocardiogram October 2020: Indeterminate diastolic function, EF 65-70%, mild right ventricular enlargement, mildly increased left ventricular wall thickness, mild left atrial enlargement, mild mitral valve regurgitation, mild tricuspid valve regurgitation, moderate pulmonary hypertension with RVSP 59, 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 Essential (primary) hypertension Fluid overload, unspecified Hyp ht/kd NOS I-IV w hf Hyperlipidemia associated with type 2 diabetes mellitus Hypertension associated with diabetes Iron deficiency anemia Mixed hyperlipidemia Pulmonary hypertension Umbilical hernia Surgical History Surgical History Normal colonoscopy (~2007) Status post bilateral knee replacements Status post cataract extraction of both eyes with insertion of intraocular lens Family History Family History Father Cerebrovascular accident Mother Hypertension Sibling Hypertension Kidney disease, chronic, end stage on dialysis Social History Social History Social History: He lives in [place] with his of 57 years. 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 They have 1 daughter and 1 son who are healthy. Smoking packs per day: 0.5 Smoking cigarettes per day: 10.0 Years smoked: 3 Smoking pack-years: 1.50 Smoking status: Former smoker Tobacco type: cigarettes Second hand tobacco smoke exposure: No Alcohol intake: never Substance use: never Substance use type: does not use Lack of Transportation: No Lack of Food: Never True Current Housing: I Have Housing Concerned About Future Housing: No Difficulty Paying Gas/Electric Bills: No Difficulty Paying for Meds: No Currently Unemployed: No Education: Associate Degree Living arrangements: with family Occupation/Education: retired Gender identity (if verbalized by the patient): Male Spiritual care concerns: No Exam Narrative: APPEARANCE: Well appearing, no pain, no distress, well-nourished. HEAD: normocephalic, atraumatic. EYES: PERRLA/EOMI, conjunctivae clear. NOSE: Normal no drainage EARS:TMS clear with good light reflex. THROAT: Pharynx clear, no exudate. NECK: Supple. No adenopathy, no masses. RESPIRATORY: Airway patent, respirations nonlabored. Clear to auscultation bilaterally, no rales, rhonchi, wheezing. CARDIOVASCULAR: Regular rate and rhythm without murmurs rubs or gallops. ABDOMINAL: Soft, nontender, nondistended, normal
--- NOTE | 2023-06-27 17:49 | PM.IMHP ---
H&P: HPI History of Present Illness Date/Time: 06/27/23 17:25 Chief Complaint: Swelling. Narrative: This is a very pleasant 83-year-old male with congestive heart failure, pulmonary hypertension, chronic kidney disease, type 2 diabetes mellitus, hypertension, chronic anemia, and other comorbidities who presented to the emergency department via private vehicle for evaluation of swelling. The patient provides the following history. He is a patient of Dr. Medina and he was given a prescription for metolazone for 4 days due to a significant increase in edema which is now up to the flanks. He reports minimal improvement with that and he was given an additional dose of metolazone, reportedly double from what he had been taking. Unfortunately that did not increase his urine output or reduce his swelling. Additionally he endorses increasing dyspnea on lesser and lesser exertion and generalized fatigue. He denies syncope, chest pain, pleuritic pain, palpitations, nausea, vomiting, sweats, dysuria, difficulties urinating. He was told to come to the emergency department for possible admission for diuresis given ongoing issues. His vital signs have been stable since arrival. Labs today were significant for hemoglobin of 7.0, platelet 128, sodium 134, potassium 3.0, chloride 95, BUN 111, creatinine 3.20, proBNP 20803. His baseline creatinine ranges between 2.2 and 2.60. He is being admitted in this setting for further evaluation of worsening renal function (he sees Dr. Johnson as an outpatient). Review of Systems Review of Systems: Twelve systems were reviewed. No fever, chills, or sweats. No recent cold or flu symptoms. It sounds as though he has chronic orthopnea and that is unchanged. He denies calf pain. No history of venous thromboembolism. No pleuritic pain. Except as documented, all other systems were reviewed and are negative. [facility] Past Medical History Medical History (Updated 06/27/23 @ 22:43 by Savanah Mccarty PA-C) Atrial fibrillation B12 deficiency anemia Benign prostatic hyperplasia Chronic anemia Chronic anticoagulation Chronic kidney disease, stage 3b Congestive heart failure Echocardiogram October 2020: Indeterminate diastolic function, EF 65-70%, mild right ventricular enlargement, mildly increased left ventricular wall thickness, mild left atrial enlargement, mild mitral valve regurgitation, mild tricuspid valve regurgitation, moderate pulmonary hypertension with RVSP 59, 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 Essential (primary) hypertension Hyperlipidemia associated with type 2 diabetes mellitus Hypertension associated with diabetes Iron deficiency anemia Mixed hyperlipidemia Pulmonary hypertension Umbilical hernia Surgical History Surgical History Normal colonoscopy (~2007) Status post bilateral knee replacements Status post cataract extraction of both eyes with insertion of intraocular lens Family History Family History Father Cerebrovascular accident Mother Hypertension Sibling Hypertension Kidney disease, chronic, end stage on dialysis Social History Social History (Updated 06/27/23 @ 22:40 by Savanah Mccarty PA-C) Social History: Surrogate medical decision maker: Kathy Yanez, spouse. Code status: Full code. 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
--- NOTE | 2023-06-27 19:37 | ADMGEN ---
This patient, Khalif Yanez, was admitted to 3 [facility] Surg Room 320-01. Patient/family oriented to hospital policies and general routines including ID bracelet, bed and alarms, visiting hours, pain management, procedures, bathroom and other care routines, personal items, smoking policy, room service/diet, and visiting hours. Information on how to activate the Rapid Response Team has been discussed. Patient/Family are encouraged to report perceived risks to care and to ask questions if they do not understand what they are told or what they should do.
[2023-06-27 21:49] LABS: Glucose Point of Care 218 mg/dl (65-105)
[2023-06-27] MEDS: POTASSIUM CHLORIDE 20 MEQ ER TABLET 40 MEQ PO (23:38)
[2023-06-27] MEDS: FUROSEMIDE INJ 40 MG/4 ML VIAL IV PUSH (23:38)
[2023-06-28] VITALS (17 sets, daily range): BP systolic 91–129; BP diastolic 49–74; PULSE 50–80; RESP 12–20; TEMP 35.7–37.1; O2SAT 97–100
--- NOTE | 2023-06-28 | ECHO_ITS ---
Patient Info Name: Khalif Yanez Age: 83 years : 1940 Gender: Male Ht: 70 in Wt: 237 lbs BSA: 2.34 m2 HR: 56 bpm BP: 119 / 68 mmHg Heart Rhythm: Atrial Fibrillation Technical Quality: Good Exam Date: 06/28/2023 2:11 PM Exam Location: Echo Lab Patient Status: Inpatient Admit Date: 06/28/2023 Staff Ordering Physician: Tushar Crouch MD Drums Teacher: Km Galvez RDCS Attending Provider: Taz Jones MD Referring Physician: Miko SHIRLEY; Exam Type: CA echo doppler color flow Study Info Indications - edema Complete two-dimensional, color flow and Doppler transthoracic echocardiogram is performed. Summary 1. Complete two-dimensional, color flow and Doppler transthoracic echocardiogram is performed. 2. Technically difficult study with limited views. 3. Left ventricular chamber dimension is normal. 4. Left ventricular systolic function is normal, estimated at 60-65%. 5. There is moderately increased left ventricular wall thickness. 6. Left ventricular septal wall motion is abnormal with septal motion related to bundle branch block. 7. The left ventricular diastolic function is abnormal. 8. Right ventricular chamber dimension is mildly enlarged with prominent moderator band. 9. Right ventricular systolic function is mildly reduced. 10. Right atrial chamber dimension is severely enlarged. 11. Left atrial chamber dimension is moderately enlarged. 12. There is no aortic valve stenosis. 13. There is mild mitral valve regurgitation. 14. There is mild tricuspid valve regurgitation. 15. Moderate pulmonary hypertension, estimated pulmonary arterial systolic pressure is 54 mmHg. 16. The aortic root size at the sinus of Valsalva is mildly dilated at 3.[address] chest if clinically indicated. Left Ventricle Left ventricular chamber dimension is normal. Left ventricular systolic function is normal, estimated at 60-65%. There is moderately increased left ventricular wall thickness. Left ventricular septal wall motion is abnormal with septal motion related to bundle branch block. The left ventricular diastolic function is abnormal. Technically difficult study with limited views. Right Ventricle Right ventricular chamber dimension is mildly enlarged with prominent moderator band. Right ventricular systolic function is mildly reduced. Left Atria Left atrial chamber dimension is moderately enlarged. Right Atria Right atrial chamber dimension is severely enlarged. Aortic Valve The aortic valve is not well visualized. There is no aortic valve stenosis. There is no aortic valve regurgitation. Pulmonic Valve The pulmonic valve is not well visualized. There is mild pulmonic regurgitation. Mitral Valve The mitral valve has thickened leaflets. There is mild mitral valve regurgitation. The mitral valve annulus is mildly calcified. Tricuspid Valve The tricuspid valve leaflets are normal. There is mild tricuspid valve regurgitation. Moderate pulmonary hypertension, estimated pulmonary arterial systolic pressure is 54 mmHg. Pericardium/Pleural The pericardium appears normal. There is no pericardial effusion. Inferior Vena Cava Normal inferior vena cava with <50% collapse upon inspiration consistent with elevated right atrial pressure, 10 mmHg. Aorta The aortic root size at the sinus of Valsalva is mildly dilated at 3.[address] chest if clinically indicated. There is mild aortic atherosclerosis. Left Ventricular Outflow Tract Name
[2023-06-28] MEDS: traMADol HCL (*CRX) 50 MG TABLET PO (06:42)
[2023-06-28 06:57] LABS: Hematocrit 23.2 % (42.0-52.0); Mean Corpuscular HGB Conc 29.7 g/dl (32-36); Mean Corpuscular Volume 84.1 fl (80-100); Mean Platelet Volume 10.1 fl (7.4-10.4); Platelet Count Result 123 k/mm3 (150-375); Red Blood Count 2.76 M/mm3 (4.6-6.20); Red Cell Distribution Width 21.1 % (11.5-14.5); White Blood Count 5.1 K/mm3 (4.5-10.0)
[2023-06-28 07:02] LABS: Hemoglobin 6.9 g/dL (14.0-18.0)
[2023-06-28 07:05] LABS: Anion Gap 12 mmol/L (8-16); Blood Urea Nitrogen 112 mg/dL (9-20); Calcium 7.9 mg/dL (8.4-10.2); Carbon Dioxide 26 mmol/L (22-30); Chloride 97 mmol/L (98-107); Estimated CRCL calculation 21 ml/min; Estimated Glomerular Filt Rate 23; Glucose 162 mg/dL (65-110); Magnesium 1.9 mg/dL (1.6-2.3); Potassium 2.9 mmol/L (3.4-5.0); Sodium 135 mmol/L (137-145)
[2023-06-28 08:20] LABS: Glucose Point of Care 161 mg/dl (65-105)
[2023-06-28] MEDS: CHOLECALCIFEROL 1,000 UNITS TABLET 2000 UNITS PO (08:53)
[2023-06-28] MEDS: carvediloL 12.5 MG TABLET PO ×2 (08:53→20:37)
[2023-06-28] MEDS: allopurinoL 100 MG TABLET PO (08:53)
[2023-06-28] MEDS: MAGNESIUM OXIDE 400 MG TABLET PO (08:53)
[2023-06-28] MEDS: ATORVASTATIN 10 MG TABLET PO (08:53)
--- NOTE | 2023-06-28 09:02 | PM.IMPN ---
Progress Note: A&P Assessment and Plan (1) Acute on chronic kidney failure: Code(s): N17.9 - Acute kidney failure, unspecified; N18.9 - Chronic kidney disease, unspecified Status: Acute (2) Chronic anemia: Code(s): D64.9 - Anemia, unspecified Status: Acute (3) Acute on chronic diastolic CHF (congestive heart failure): Code(s): I50.33 - Acute on chronic diastolic (congestive) heart failure Status: Acute (4) Electrolyte abnormality: Code(s): E87.8 - Other disorders of electrolyte and fluid balance, not elsewhere classified Status: Acute (5) Thrombocytopenia: Code(s): D69.6 - Thrombocytopenia, unspecified Status: Acute (6) Type 2 diabetes mellitus with diabetic neuropathy: Qualifiers: Diabetes mellitus superintendent [employer] insulin use: without superintendent marine oil terminal use Qualified Code(s): E11.40 - Type 2 diabetes mellitus with diabetic neuropathy, unspecified Code(s): E11.40 - Type 2 diabetes mellitus with diabetic neuropathy, unspecified Status: Acute Plan The patient presented to the emergency department for evaluation of increasing edema as detailed in HPI. bilateral lower extremity edema volume overloaded and has significant bilateral lower extremity edema with mild congestive changes on chest x-ray., possible venous stasis edema Venous Doppler shows no DVT He has been on metolazone recently for this swelling without benefit. Patient received furosemide IV x1 Consult occupational therapy professor for evaluation treatment Will hold diuretic medication because of worsening kidney function Order echocardiogram Chronic AFib Rate is controlled Discontinue Xarelto because of severe anemia, will resume Xarelto when it is okay for cardiology and GI Patient has AFib, bradycardia, started dobutamine per occupational therapy professor LINDSEY on CKD His renal function has worsened with a BUN and creatinine of 111 and 3.20. He denies concerns for urinary retention but will check bladder scan to rule out the same. . Nephrology in Cardiology have been consulted for their opinion. Suspecting acute blood loss anemia Patient is on Xarelto for AFib Hemoglobin 10.0 August 20, 1999 is 3, 7.0 POA, trending down to 6.9 today Chronic anemia likely secondary to chronic renal failure, but the significant drop in hemoglobin may indicate blood loss Transfuse 1 pack RBC check for occult blood, reticulocyte, haptoglobin, iron panel Consult GI for evaluation treatment Hold Xarelto Platelets are a bit low and will be monitored. Potassium will be replaced and monitored as well. Type 2 diabetes initiate sliding scale insulin, Accu-Cheks, and hypoglycemic protocol. Findings and treatment plan were discussed with the patient. Questions were solicited and answered to satisfaction. Subjective Date/time seen: 06/28/23 09:02 Interval history: I saw and examined, patient has some shortness breath, shelter monitor showed AFib bradycardia. Patient has some cough Exam Narrative: General: Nontoxic-appearing gentleman the semi-Lawton position in bed. Weight: 110.22 kg. BMI: 34.9. HEENT: PERRL, EOMI. Sclera anicteric. Tacky mucous membranes. Neck: Supple. Respiratory: Coarse breath sound bilateral base Cardiovascular: Bradycardic. Irregular irregular heart rhythm Gastrointestinal: Abdomen is is protuberant and nontender with positive bowel sounds. Skin: Warm and dry. Extremities: No cyanosis or clubbing. He has significant pitting edema which softening to the thighs. Neurological: Alert. Cranial nerves 2-12 are grossly intact. No gross focal deficits to casual conversation. Psychiatric: Pleasant and cooperative with normal mood and affect. Objective Data Vital Signs Vital Signs: Vital Signs - 24 hr 06/27/23 14:14 06/27/23 14:32 06/27/23 14:30 Temperature 97.4 F L Pulse Rate 54 L 54 L Respiratory Rate 20 17 Blood Pressure 125/63 Pulse Oximetry 99 98 Oxygen Delivery Room Air Ro
[2023-06-28 09:26] LABS: Immature Reticulocyte Fraction 26.6 % (3.0-15.9); Reticulocyte Percent 2.08 % (0.7-4.3); Reticulocytes Absolute 0.05 M/mm3 (0.02-0.1)
[2023-06-28 09:32] LABS: Iron 19 ug/dL (49-181)
[2023-06-28 09:41] LABS: Percent Iron Saturation 6 % (20-50)
[2023-06-28 11:59] LABS: Glucose Point of Care 267 mg/dl (65-105)
[2023-06-28] MEDS: POTASSIUM CHLORIDE 20 MEQ ER TABLET 40 MEQ PO (12:19)
[2023-06-28] MEDS: INSULIN ASPART (*BKC) 100 UNITS/ML SUB-Q ×2 (12:20→21:53)
--- NOTE | 2023-06-28 13:21 | PM.CNNEP ---
Assessment and Plan Assessment and plan (1) LINDSEY (acute kidney injury): Code(s): N17.9 - Acute kidney failure, unspecified Status: Acute Assessment and Plan: The patient has acute kidney injury. His baseline creatinine generally runs around 2-2.5 and now it is above 3. Long discussion with the patient. Usually when someone is on extra diuretics and the creatinine goes up the swelling is improving. However in his case the diuretics did not have the swelling worsened and his creatinine is worse so there may be some other issue going on. Possibilities include: intrinsic renal disease. Will get renal ultrasound and electrolytes. He did have a biopsy showing that he has diabetes and blood pressure in the kidneys so I doubt if there is some sort of a glomerulonephritis going on. Interstitial nephritis is always a possibility however he is not on anything new that would cause this. The patient could have worsened heart disease. Will check an echocardiogram. The patient could have worsened pulmonary hypertension. He might have sleep apnea. Will look more into this. The patient could have worsened proteinuria. Will check a urine protein to creatinine ratio. Patient could have some sort of liver issue as well. This would be least likely. At this point will get a renal ultrasound urine electrolytes urine protein urinalysis and a echocardiogram. If his LV is bad consider dobutamine. If RV is bad then consider sleep apnea therapy (2) Stage 3b chronic kidney disease: Code(s): N18.32 - Chronic kidney disease, stage 3b Status: Chronic Assessment and Plan: The patient has chronic kidney disease. He has biopsy-proven hypertensive and diabetic nephrosclerosis. His baseline creatinine is between 2 and 2.5. (3) Edema: Code(s): R60.9 - Edema, unspecified Status: Acute Assessment and Plan: The patient's swelling is worse. Discussion as above. Rule out cardiac, pulmonary, and renal causes. (4) Left-sided weakness: Code(s): R53.1 - Weakness Status: Acute Assessment and Plan: Patient had an episode of left-sided weakness. He is already on anticoagulants. Will check an MRI, and carotid Dopplers as well. (5) Type 2 diabetes mellitus with diabetic neuropathy: Qualifiers: Diabetes mellitus care home insulin use: without director long term care use Qualified Code(s): E11.40 - Type 2 diabetes mellitus with diabetic neuropathy, unspecified Code(s): E11.40 - Type 2 diabetes mellitus with diabetic neuropathy, unspecified Status: Acute Assessment and Plan: The patient has diabetes. Management per hospitalists. (6) Mixed hyperlipidemia: Code(s): E78.2 - Mixed hyperlipidemia Status: Acute Assessment and Plan: The patient is on atorvastatin (7) Essential (primary) hypertension: Code(s): I10 - Essential (primary) hypertension Status: Acute Assessment and Plan: Blood pressure is under good control (8) Congestive heart failure: Code(s): I50.9 - Heart failure, unspecified Status: Acute Assessment and Plan: See discussion above. Repeat echo. (9) Iron deficiency anemia: Qualifiers: Iron deficiency anemia type: unspecified iron deficiency Qualified Code(s): D50.9 - Iron deficiency anemia, unspecified Code(s): D50.9 - Iron deficiency anemia, unspecified Status: Acute Assessment and Plan: The patient has a low hemoglobin. He does have antibodies he says so transfusion may be difficult. Will go ahead and get iron tests, and a reticulocyte count as well as stool guaiacs. We will give him some IV iron, and Epogen. History of Present Illness Reason for Consult Consult date: 06/28/23 Chief Complaint Chief complaint: Pulmonary Edema/CHF History of Present Illness Narrative: Khalif is a very pleasant 83-year-old gentleman who has multiple medical problems including
--- NOTE | 2023-06-28 13:28 | PM.CNCAR ---
Assessment and Plan Assessment and plan (1) Acute on chronic diastolic CHF (congestive heart failure): Code(s): I50.33 - Acute on chronic diastolic (congestive) heart failure Status: Acute Plan This is an 83-year-old man with chronic atrial fibrillation and diastolic LV dysfunction who is admitted to the hospital for for attempt to treat his volume overload which is getting worse gradually as an outpatient despite high-dose diuretics. He does not have a history of systolic failure and he does have intrinsic chronic kidney disease which appears to be progressed since he is volume overloaded despite aggressive diuretic treatment and his lab data appears to show rather low GFR at this point. His diuretics have been placed on hold for this reason. I am going to try starting intravenous low-dose dopamine to try to prompted diuretic response. I suspect this will require him to be transferred to another floor. Will follow his response to low-dose dopamine with you and his corporate sales trainer apparently also has been consulted to see him which I believe will be helpful Jameel Gutierrez MD [facility] History of Present Illness History of Present Illness Consult date/time: 06/28/23 13:28 Reason For Visit: Pulmonary Edema/CHF Narrative: This is an 83-year-old man who I am seeing at the request of the hospitalist to assist with the management of volume overload/diastolic heart failure. Patient is known to my partner, Dr. Medina for a number of years and he has the diagnosis of chronic atrial fibrillation as well as diastolic dysfunction and volume overload. He has been seen by my partner and my nurse practitioner couple of times recently and diuretic regimens have been advanced more recently to high dose oral Bumex as well as metolazone with failure of a good clinical diuretic response. Because of ongoing problems with lower extremity edema that has been worsening he was directed to come to the emergency room to be admitted for inpatient treatment. Patient also has chronic kidney disease and that appears to be have worsened. His BUN is about 110 with a creatinine of 3.2 which is higher than his baseline numbers. This is despite the fact that he is clearly volume overloaded. He does not carry the diagnosis of systolic heart failure or significant valvular disease. Echocardiography earlier this year in the office still demonstrates preserved left ventricular systolic function. He has been in chronic atrial fibrillation for several years being managed with rate control and anticoagulation strategy. It also is of note that his admitting laboratory data demonstrates worsening of his chronic anemia currently with a hemoglobin of 6.9 and hematocrit of 23. He is seated in the chair in his hospital room visiting with his appears to be comfortable otherwise and has no other complaints at this time. He is not reporting any chest pain or shortness of breath per se. Review of Systems Constitutional: Constitutional: Reports lethargy Eyes: Eyes: Reports no additional eye complaints ENT: Reports system reviewed and no additional complaints, except as documented Cardiovascular: Cardiovascular: Reports leg edema Respiratory: Respiratory: Reports dyspnea on exertion Gastrointestinal: Gastrointestinal: Reports no additional gastrointestinal complaints Musculoskeletal: Musculoskeletal: Reports no additional musculoskeletal complaints Integumentary/Breasts: Skin/Breast: Reports system reviewed and no additional complaints, except as docu Neurologic: Reports system reviewed and no additional complaints, except as documented Endocrine: Endocrine: Reports no additional endocrine complaints Hematologic/Lymphatic: Hematologic/Lymphatic: Reports no additional hematologic/lymphatic complaints Allergic/Immunologic: Allergic/Immunologic: Reports no additional allergic/immunologic complaints [facility] Past Medical History Medical History (Updated 06/27/23 @ 22
[2023-06-28] MEDS: EPOETIN ALFA-EPBX 10,000 UNITS/ML VIAL 10000 UNITS SUB-Q (14:33)
--- NOTE | 2023-06-28 15:28 | PC.NURSE ---
This patient, Khalif Yanez, was received from [facility] on 06/28/23 at 1528. Patient/family oriented to unit policies and routines. Instructed spouse to take home meds home with her.
[2023-06-28 16:09] LABS: Creatine Kinase 65 U/L (55-170)
[2023-06-28] MEDS: DOPamine 400 MG/D5W 250 ML 400 MG/250 ML BAG 10.1 MG IV CONT (16:35)
[2023-06-28 17:49] LABS: Glucose Point of Care 207 mg/dl (65-105)
[2023-06-28 19:10] LABS: Anion Gap 12 mmol/L (8-16); Blood Urea Nitrogen 112 mg/dL (9-20); Calcium 7.8 mg/dL (8.4-10.2); Carbon Dioxide 27 mmol/L (22-30); Chloride 96 mmol/L (98-107); Estimated CRCL calculation 21 ml/min; Estimated Glomerular Filt Rate 23; Glucose 242 mg/dL (65-110); Potassium 3.5 mmol/L (3.4-5.0); Sodium 135 mmol/L (137-145)
[2023-06-28 20:36] LABS: Glucose Point of Care 242 mg/dl (65-105)
[2023-06-28] MEDS: SODIUM CHLORIDE 0.9% IV 250 ML 30 ML IV CONT (20:36)
[2023-06-28] MEDS: TUBING, BLOOD PLUM PUMP TUBING 1 EACH XX ×2 (20:36)
[2023-06-28] MEDS: GABAPENTIN 300 MG CAPSULE PO (20:37)
[2023-06-28] MEDS: FERROUS SULFATE 325 MG TABLET DR 650 MG PO (23:00)
[2023-06-29] VITALS (14 sets, daily range): BP systolic 110–129; BP diastolic 60–69; PULSE 56–72; RESP 12–20; TEMP 36.3–37.3; O2SAT 95–100
[2023-06-29 04:57] LABS: Appearance Urine Clear (Clear); Bilirubin Urine Negative (Negative); Blood Urine Negative (Negative); Color Urine Yellow (Yellow); Glucose Urine UA Negative (Negative); Ketones Urine Negative (Negative); Leukocyte Esterase Ur Negative LEU/UL (NEGATIVE); Nitrate Urine Negative (Negative); Protein Urine Negative (Negative); Specific Grav Ur 1.011 (1.001-1.035); Urobilinogen Urine 0.2 mg/dL (<2.0)
[2023-06-29 05:13] LABS: Hematocrit 30.6 % (42.0-52.0); Hemoglobin 8.1 g/dL (14.0-18.0); Mean Corpuscular HGB Conc 26.5 g/dl (32-36); Mean Corpuscular Hemoglobin 24.5 pg (26-34); Mean Corpuscular Volume 92.7 fl (80-100); Mean Platelet Volume 10.3 fl (7.4-10.4); Platelet Count Result 115 k/mm3 (150-375); White Blood Count 5.9 K/mm3 (4.5-10.0)
[2023-06-29 05:21] LABS: Anion Gap 13 mmol/L (8-16); Blood Urea Nitrogen 118 mg/dL (9-20); Calcium 7.7 mg/dL (8.4-10.2); Carbon Dioxide 20 mmol/L (22-30); Chloride 99 mmol/L (98-107); Estimated CRCL calculation 22 ml/min; Estimated Glomerular Filt Rate 25; Glucose 231 mg/dL (65-110); Phosphorus 4.6 mg/dL (2.5-4.5); Potassium 3.5 mmol/L (3.4-5.0); Sodium 132 mmol/L (137-145)
[2023-06-29 05:22] LABS: Add Urine Microscopic? NO
[2023-06-29 05:53] LABS: Creatinine Urine 103.5 mg/dL; Total Protein Urine Random 15 mg/dL; Ur Ttl Prot Creatinine Ratio 0.14 mg/mg (0-0.20); Urea Random Urine 444 MG/DL
[2023-06-29 06:10] LABS: Sodium Urine Random 23 meq/L
[2023-06-29 08:02] LABS: Glucose Point of Care 200 mg/dl (65-105)
--- NOTE | 2023-06-29 09:15 | PM.PNCARD ---
Progress Note: A&P Assessment and Plan (1) Atrial fibrillation: Code(s): I48.91 - Unspecified atrial fibrillation Status: Acute (2) Congestive heart failure: Code(s): I50.9 - Heart failure, unspecified Status: Acute Plan 83-year-old man with diastolic dysfunction/volume overload and chronic atrial fibrillation. He has clinically responded well at with 24 hours of low-dose dopamine. Intake output has not been charted but I detect significantly improved to lower extremity edema. Will therefore continue the low-dose dopamine infusion for the time being. It is also favorable there has been a slight decline in his creatinine with this maneuver. Jameel Gutierrez MD [facility] Subjective Date/time seen: Date of service: 06/29/23 09:15 Interval history: Follow-up visit in this 83-year-old man with: Chronic atrial fibrillation and diastolic heart failure. He also has worsened chronic kidney disease. Started the patient yesterday on some low-dose dopamine to try to stimulate a diuresis. He does notice improvement in his edema from yesterday. Intake/output i do not see recorded on the chart. Exam Const: General: comfortable and no acute distress Other: Pleasant overweight elderly man no distress HENMT: Mouth: Yes moist mucous membranes Eyes: Sclera: sclerae normal Neck: Neck: supple Resp: Effort & Inspection: normal respiratory effort Other: Few crackles at the bases otherwise basically clear Healing rash from herpes zoster noted Cardio: Rhythm: abnormal rhythm irregularly irregular GI: GI Palp: Yes Soft to palpation Auscultation: normal bowel sounds Skin: General skin exam: normal color Neuro: Other: Alert and oriented Extrem: Other: Moderate bilateral edema. By my exam is clearly better than yesterday it is softer and less tense. Objective Data Vital Signs Vital Signs: Vital Signs - 24 hr 06/28/23 12:00 06/28/23 14:00 06/28/23 16:00 Temperature 36.6 C Pulse Rate 54 L 56 L Respiratory Rate 18 Blood Pressure 119/68 Pulse Oximetry 98 Oxygen Delivery Room Air 06/28/23 16:00 06/28/23 16:00 06/28/23 20:23 Temperature 36.7 C 36.5 C Pulse Rate 50 L 58 L 74 Respiratory Rate 16 18 Blood Pressure 91/49 L 118/70 Pulse Oximetry 99 98 Oxygen Delivery 06/28/23 20:37 06/28/23 20:43 06/28/23 20:00 Temperature 36.1 C L 36.5 C Pulse Rate 80 69 60 Respiratory Rate 12 20 Blood Pressure 128/71 118/70 Pulse Oximetry 97 Oxygen Delivery 06/28/23 21:43 06/28/23 20:00 06/28/23 22:43 Temperature 36.5 C 35.7 C L Pulse Rate 64 72 64 Respiratory Rate 12 12 Blood Pressure 122/64 124/71 Pulse Oximetry 100 98 Oxygen Delivery 06/28/23 23:42 06/28/23 23:43 06/29/23 00:00 Temperature 36.7 C 37.1 C Pulse Rate 60 64 64 Respiratory Rate 20 12 Blood Pressure 112/54 L 126/74 Pulse Oximetry 97 Oxygen Delivery 06/29/23 02:00 06/28/23 22:00 06/29/23 04:00 Temperature Pulse Rate 60 70 65 Respiratory Rate Blood Pressure Pulse Oximetry Oxygen Delivery 06/29/23 04:00 06/29/23 06:00 06/29/23 08:00 Temperature 36.3 C L 37.3 C Pulse Rate 69 72 60 Respiratory Rate 20 12 Blood Pressure 110/63 126/67 Pulse Oximetry 95 95 Oxygen Delivery Intake/Output Intake/Output: Intake & Output 06/26/23 06/27/23 06/28/23 06/29/23 23:59 23:59 23:59 23:59 Intake Total 710 Output Total 425 1500 800 Balance -425 -790 -800 Meds/Results Medications: Active Medications Generic Name Dose Route Start Last Admin Trade Name Freq PRN Reason Stop Dose Admin Albuterol 2 puff 06/27/23 22:49 Albuterol Sulfate (*Sp) Aerosol 1 Puff INHALATION Q6HRT PRN Shortness Of Breath Allopurinol 100 mg 06/28/23 09:00 06/28/23 08:53 Allopurinol 100 Mg Tablet PO 100 mg DAILY CESAR Administration Atorvastatin Calcium 10 mg 06/28/23 09:00 06/28/23 08:53 Atorvastatin 10
[2023-06-29] MEDS: IRON SUCROSE COMPLEX 200 MG in SODIUM CHLORIDE 0.9% IV 100 ML 220 MG IVPB (10:21)
[2023-06-29] MEDS: POTASSIUM CHLORIDE 20 MEQ ER TABLET 40 MEQ PO ×2 (10:22→18:04)
[2023-06-29] MEDS: carvediloL 12.5 MG TABLET PO ×2 (10:22→21:15)
[2023-06-29] MEDS: MAGNESIUM OXIDE 400 MG TABLET PO (10:22)
[2023-06-29] MEDS: allopurinoL 100 MG TABLET PO (10:22)
[2023-06-29] MEDS: ATORVASTATIN 10 MG TABLET PO (10:22)
[2023-06-29] MEDS: CHOLECALCIFEROL 1,000 UNITS TABLET 2000 UNITS PO (10:22)
[2023-06-29] MEDS: calcitrioL 0.25 MCG CAPSULE PO (10:36)
--- NOTE | 2023-06-29 10:57 | PM.IMPN ---
Progress Note: A&P Assessment and Plan (1) Acute on chronic kidney failure: Code(s): N17.9 - Acute kidney failure, unspecified; N18.9 - Chronic kidney disease, unspecified Status: Acute (2) Chronic anemia: Code(s): D64.9 - Anemia, unspecified Status: Acute (3) Acute on chronic diastolic CHF (congestive heart failure): Code(s): I50.33 - Acute on chronic diastolic (congestive) heart failure Status: Acute (4) Electrolyte abnormality: Code(s): E87.8 - Other disorders of electrolyte and fluid balance, not elsewhere classified Status: Acute (5) Thrombocytopenia: Code(s): D69.6 - Thrombocytopenia, unspecified Status: Acute (6) Type 2 diabetes mellitus with diabetic neuropathy: Qualifiers: Diabetes mellitus adjunct faculty for medical terminology insulin use: without adjunct faculty for medical terminology use Qualified Code(s): E11.40 - Type 2 diabetes mellitus with diabetic neuropathy, unspecified Code(s): E11.40 - Type 2 diabetes mellitus with diabetic neuropathy, unspecified Status: Acute Plan The patient presented to the emergency department for evaluation of increasing edema as detailed in HPI. bilateral lower extremity edema volume overloaded and has significant bilateral lower extremity edema with mild congestive changes on chest x-ray., possible venous stasis edema Venous Doppler shows no DVT He has been on metolazone recently for this swelling without benefit. Patient received furosemide IV x1 Consult communications engineer for evaluation treatment Will hold diuretic medication because of worsening kidney function Order echocardiogram Chronic AFib Rate is controlled Discontinue Xarelto because of severe anemia, will resume Xarelto when it is okay for cardiology and GI Patient has AFib, bradycardia, started dobutamine per communications engineer LINDSEY on CKD His renal function has worsened with a BUN and creatinine of 111 and 3.20. He denies concerns for urinary retention but will check bladder scan to rule out the same. . Nephrology and Cardiology have been consulted for their opinion. on dopamine per communications engineer Suspecting acute blood loss anemia Patient is on Xarelto for AFib Hemoglobin 10.0 August 20, 1999 is 3, 7.0 POA, trending down to 6.9 06/28 Chronic anemia likely secondary to chronic renal failure, but the significant drop in hemoglobin may indicate blood loss Transfuse 1 pack RBC 06/28 check for occult blood, immature reticulocyte high, 26.6%, haptoglobin, iron panel: Iron low, transferrin low but transferrin 613 Start IV p.r.n. and Epogen per street openings inspector Consult GI for evaluation treatment Hold Xarelto Hemoglobin 8.1 today Flank pain post shingles infection Pain is well controlled with gabapentin 300 mg q.h.s. Healing scar over the skin due to shingles infection recently Patient received 7 days valacyclovir, completed course of shingle treatment No flare up now Platelets are a bit low and will be monitored. Potassium will be replaced and monitored as well. Type 2 diabetes initiate sliding scale insulin, Accu-Cheks, and hypoglycemic protocol. Findings and treatment plan were discussed with the patient. Questions were solicited and answered to satisfaction. Subjective Date/time seen: 06/29/23 10:57 Interval history: I saw and examined patient today. Patient feels better today, dyspnea is improving. Patient is afebrile, blood pressure stable. Patient denies worsening pain of the left flank. Exam Narrative: General: Nontoxic-appearing gentleman the semi-Lawton position in bed. Weight: 110.22 kg. BMI: 34.9. HEENT: PERRL, EOMI. Sclera anicteric. Tacky mucous membranes. Neck: Supple. Respiratory: Coarse breath sound bilateral base Cardiovascular: Bradycardic. Irregular irregular heart rhythm Gastrointestinal: Abdomen is is protuberant and nontender with positive bowel sounds. Skin: Warm and dry. Healing scar over the shingle lesion around left flank over the back, s
[2023-06-29 12:01] LABS: Glucose Point of Care 274 mg/dl (65-105)
[2023-06-29] MEDS: INSULIN ASPART (*BKC) 100 UNITS/ML SUB-Q ×3 (12:32→21:15)
--- NOTE | 2023-06-29 12:56 | PM.PNNEP ---
Progress Note: A&P Assessment and Plan (1) LINDSEY (acute kidney injury): Code(s): N17.9 - Acute kidney failure, unspecified Status: Acute Assessment and Plan: The patient has acute kidney injury. His baseline creatinine generally runs around 2-2.5 and now it is above 3. echocardiogram pending renal ultrasound pending UA negative urine electrolytes are pre renal Total CK is normal and protein is normal Patient says he was checked for sleep apnea in the past and does not have it. most likely pre renal azotemia, possibly due to the heart. Dr. Gutierrez saw the patient and prescribed Dopamine. His urine output has increased some with that. His creatinine came down marginally since then as well. will see how the numbers and the fluid burden is tomorrow. (2) Stage 3b chronic kidney disease: Code(s): N18.32 - Chronic kidney disease, stage 3b Status: Chronic Assessment and Plan: The patient has chronic kidney disease. He has biopsy-proven hypertensive and diabetic nephrosclerosis. His baseline creatinine is between 2 and 2.5. (3) Edema: Code(s): R60.9 - Edema, unspecified Status: Acute Assessment and Plan: The patient's swelling is worse. Discussion as above. On dopamine now. Evaluation in progress (4) Left-sided weakness: Code(s): R53.1 - Weakness Status: Acute Assessment and Plan: Patient had an episode of left-sided weakness. He is already on anticoagulants. Will check an MRI, and carotid Dopplers as well. all these tests are pending. (5) Type 2 diabetes mellitus with diabetic neuropathy: Qualifiers: Diabetes mellitus [facility] insulin use: without [facility] use Qualified Code(s): E11.40 - Type 2 diabetes mellitus with diabetic neuropathy, unspecified Code(s): E11.40 - Type 2 diabetes mellitus with diabetic neuropathy, unspecified Status: Acute Assessment and Plan: The patient has diabetes. Management per hospitalists. (6) Mixed hyperlipidemia: Code(s): E78.2 - Mixed hyperlipidemia Status: Acute Assessment and Plan: The patient is on atorvastatin (7) Essential (primary) hypertension: Code(s): I10 - Essential (primary) hypertension Status: Acute Assessment and Plan: Blood pressure is under good control (8) Congestive heart failure: Code(s): I50.9 - Heart failure, unspecified Status: Acute Assessment and Plan: See discussion above. Repeat echo. (9) Iron deficiency anemia: Qualifiers: Iron deficiency anemia type: unspecified iron deficiency Qualified Code(s): D50.9 - Iron deficiency anemia, unspecified Code(s): D50.9 - Iron deficiency anemia, unspecified Status: Acute Assessment and Plan: The patient has a low hemoglobin. He does have antibodies he says so transfusion may be difficult. Will go ahead and get iron tests, and a reticulocyte count as well as stool guaiacs. We will give him some IV iron, and Epogen. Subjective Date/time seen: 06/29/23 12:56 Interval history: patient feels about the same. No shortness of breath. Appetite is okay Review of Systems Cardiovascular: Cardiovascular: Reports no additional cardiovascular complaints Respiratory: Respiratory: Reports no additional respiratory complaints Gastrointestinal: Gastrointestinal: Reports no additional gastrointestinal complaints Genitourinary: Genitourinary: Reports no additional male genitourinary complaints Exam Narrative: WDWN in NAD skin no rash head ncat lungs clear cor reg no rub abd BS+ nontender and soft ext 2+ bilateral edema. Objective Data Vital Signs Vital Signs: Vital Signs - 24 hr 06/28/23 14:00 06/28/23 16:00 06/28/23 16:00 Temperature 98 F Pulse Rate 56 L 50 L Respiratory Rate 18 Blood Pressure 119/68 Pulse Oximetry 98 Oxygen Delivery Room Air 06/28/23 16
[2023-06-29] MEDS: traMADol HCL (*CRX) 50 MG TABLET PO (14:07)
[2023-06-29 16:27] LABS: Glucose Point of Care 269 mg/dl (65-105)
[2023-06-29] MEDS: DOPamine 400 MG/D5W 250 ML 400 MG/250 ML BAG 10.1 MG IV CONT (18:05)
[2023-06-29 20:56] LABS: Glucose Point of Care 265 mg/dl (65-105)
[2023-06-29] MEDS: GABAPENTIN 300 MG CAPSULE PO (21:15)
[2023-06-30] VITALS (16 sets, daily range): BP systolic 109–132; BP diastolic 55–92; PULSE 47–114; RESP 16–24; TEMP 36.1–37.1; O2SAT 93–100
[2023-06-30 05:12] LABS: Albumin Level 3.1 g/dL (3.5-5.1); Anion Gap 10 mmol/L (8-16); Calcium 7.9 mg/dL (8.4-10.2); Carbon Dioxide 26 mmol/L (22-30); Chloride 96 mmol/L (98-107); Estimated CRCL calculation 20 ml/min; Estimated Glomerular Filt Rate 21; Glucose 183 mg/dL (65-110); Phosphorus 4.2 mg/dL (2.5-4.5); Potassium 4.2 mmol/L (3.4-5.0); Sodium 132 mmol/L (137-145)
[2023-06-30 05:29] LABS: Blood Urea Nitrogen 120 mg/dL (9-20)
[2023-06-30 08:40] LABS: Glucose Point of Care 189 mg/dl (65-105)
[2023-06-30] MEDS: CHOLECALCIFEROL 1,000 UNITS TABLET 2000 UNITS PO (08:56)
[2023-06-30] MEDS: MAGNESIUM OXIDE 400 MG TABLET PO (08:56)
[2023-06-30] MEDS: ATORVASTATIN 10 MG TABLET PO (08:57)
[2023-06-30] MEDS: carvediloL 12.5 MG TABLET PO ×2 (08:57→20:10)
[2023-06-30] MEDS: allopurinoL 100 MG TABLET PO (08:57)
--- NOTE | 2023-06-30 09:23 | PM.PNCARD ---
Progress Note: A&P Assessment and Plan (1) Atrial fibrillation: Code(s): I48.91 - Unspecified atrial fibrillation <PHILIPPE Garg - Last Filed: 06/30/23 14:37> Status: Acute <PHILIPPE Garg - Last Filed: 06/30/23 14:37> Assessment and Plan: Chronic atrial fibrillation managed with rate control and anticoagulation. <PHILIPPE Garg - Last Filed: 06/30/23 14:37> (2) Congestive heart failure: Code(s): I50.9 - Heart failure, unspecified <PHILIPPE Garg - Last Filed: 06/30/23 14:37> Status: Acute <PHILIPPE Garg - Last Filed: 06/30/23 14:37> Assessment and Plan: Acute on chronic diastolic heart failure. Unable to use diuretics at this point because of LINDSEY. He has been placed on dopamine which has helped him diurese somewhat. He did have improvement in his SCr yesterday, but today it is 3.4. I am going to stop the dopamine today since it doesn't seem to be providing much benefit at this point. He was found to have left hydronephrosis and urology has been consulted for this. Nephrology is following along as well. <PHILIPPE Garg - Last Filed: 06/30/23 14:37> Assessment and Plan: Attending addendum: I agree with the above documentation and plan of care as outlined. <Humberto Mae MD - Last Filed: 06/30/23 15:41> Subjective Date/time seen: 06/30/23 09:23 <PHILIPPE Garg - Last Filed: 06/30/23 14:37> Interval history: Follow-up visit in this 83-year-old man with: Chronic atrial fibrillation and diastolic heart failure. He also has worsened chronic kidney disease. Started the patient yesterday on some low-dose dopamine to try to stimulate a diuresis. He does notice improvement in his edema from yesterday. Intake/output i do not see recorded on the chart. Date of service 06/30/23: He feels like his swelling is somewhat better today. Denies shortness of breath. Doesn't feel like he is urinating very much. According to the chart he is nearly 1L fluid balance positive for today. <PHILIPPE Garg - Last Filed: 06/30/23 14:37> Review of Systems Constitutional: Constitutional: Reports lethargy <PHILIPPE Garg - Last Filed: 06/30/23 14:37> Eyes: Eyes: Reports no additional eye complaints <PHILIPPE Garg - Last Filed: 06/30/23 14:37> ENT: Reports system reviewed and no additional complaints, except as documented <PHILIPPE Garg - Last Filed: 06/30/23 14:37> Cardiovascular: Cardiovascular: Reports leg edema and Reports dyspnea on exertion <PHILIPPE Garg - Last Filed: 06/30/23 14:37> Respiratory: Respiratory: Reports dyspnea on exertion <PHILIPPE Garg - Last Filed: 06/30/23 14:37> Gastrointestinal: Gastrointestinal: Reports no additional gastrointestinal complaints <PHILIPPE Garg - Last Filed: 06/30/23 14:37> Musculoskeletal: Musculoskeletal: Reports no additional musculoskeletal complaints <PHILIPPE Garg - Last Filed: 06/30/23 14:37> Integumentary/Breasts: Skin/Breast: Reports system reviewed and no additional complaints, except as docu <PHILIPPE Garg - Last Filed: 06/30/23 14:37> Neurologic: Reports system reviewed and no additional complaints, except as documented <PHILIPPE Garg - Last Filed: 06/30/23 14:37> Endocrine: Endocrine: Reports no additional endocrine complaints <PHILIPPE Garg - Last Filed: 06/30/23 14:37> Hematologic/Lymphatic: Hematologic/Lymphatic: Reports no additional hematologic/lymphatic complaints <PHILIPPE Garg - Last Filed: 06/30/23 14:37> Allergic/Immunologic: Allergic/Immunologic: Reports no additional allergic/immunologic complaints <PHILIPPE Garg - Last Filed: 06/30/23 14:37> Exam Const: General: comfortable and no acute distress <PHILIPPE Garg - Last Filed: 06/30/23 14:37> Other: Pleasant overweight elderly man no distress <Lluvia Vargas
[2023-06-30] MEDS: POTASSIUM CHLORIDE 20 MEQ ER TABLET 40 MEQ PO (09:59)
[2023-06-30] MEDS: IRON SUCROSE COMPLEX 200 MG in SODIUM CHLORIDE 0.9% IV 100 ML 220 MG IVPB (10:00)
[2023-06-30] MEDS: calcitrioL 0.25 MCG CAPSULE PO (10:01)
--- NOTE | 2023-06-30 10:13 | PM.PNNEP ---
Progress Note: A&P Assessment and Plan (1) LINDSEY (acute kidney injury): Code(s): N17.9 - Acute kidney failure, unspecified Status: Acute Assessment and Plan: suspect due to chronic prerenal azotemia evaluation to date: renal ultrasound with left hydro urine electrolytes are prerenal PCK normal UA unremarkable some transient improvement with use of dopamine consult Urology regarding left hydronephrosis follow trend of repeat labs and UOP (2) Stage 3b chronic kidney disease: Code(s): N18.32 - Chronic kidney disease, stage 3b Status: Chronic Assessment and Plan: baseline creatinine runs ~ 2.0 - 2.5mg/dl due to biopsy proven hypertensive and diabetic nephrosclerosis his underlying CHF and need for diuretic therapy are playing a role as well (3) Edema: Code(s): R60.9 - Edema, unspecified Status: Acute Assessment and Plan: worsening with subsequent admission on dopamine diuretics on hold due to #1 follow clinical exam, daily weights, and I/Os (4) Congestive heart failure: Code(s): I50.9 - Heart failure, unspecified Status: Chronic Assessment and Plan: suspect acute on chronic diastolic heart failure based on history repeat Echo pending Cardiology following (5) Essential (primary) hypertension: Code(s): I10 - Essential (primary) hypertension Status: Chronic Assessment and Plan: reasonable control follow trend of hemodynamis (6) Iron deficiency anemia: Qualifiers: Iron deficiency anemia type: unspecified iron deficiency Qualified Code(s): D50.9 - Iron deficiency anemia, unspecified Code(s): D50.9 - Iron deficiency anemia, unspecified Status: Acute Assessment and Plan: partly related to LINDSEY and CKD on IV venofer and Epogen while hospitalized PRBC trabsfusion per protocol he reports he has ntibodies so transfusion may be difficult follow trend of H/H (7) Type 2 diabetes mellitus with diabetic neuropathy: Qualifiers: Diabetes mellitus custodial insulin use: without custodial use Qualified Code(s): E11.40 - Type 2 diabetes mellitus with diabetic neuropathy, unspecified Code(s): E11.40 - Type 2 diabetes mellitus with diabetic neuropathy, unspecified Status: Chronic Assessment and Plan: follow accu-cheks glycemic control per hospitalists Long extensive discussion (> 20 minutes) with the patient as well as his at bedside regarding his renal dysfunction and the concern that medication therapy alone may not be able to optimize his fluid status and renal function. I did discuss with him the possibility that he may require renal replacement therapy/dialysis if he continues to have ongoing issues with fluid retention/volume overload unresponsive to medical therapy. They both appeared to voice understanding to this possibility. Will continue to follow. Subjective Date/time seen: 06/30/23 10:13 Interval history: Follow-up for acute kidney injury/acute renal failure on chronic kidney disease. Reports better urine output and less swelling/edems in lower extremities although creatinine up a bit from yesterday; no apparent distress noted; family as well as at bedside and we discussed the case/situation. Exam Narrative: General: WD/WN male in NAD Heart: normal S1 and S2; IRRR, no rub Lungs: clear to auscultation Abdomen: soft, nontender, nondistended, positive bowel sounds Extremities: no cyanosis or clubbing; 2+ edema Skin: warm and dry Objective Data Vital Signs Vital Signs: Vital Signs Temp Pulse Resp BP Pulse Ox O2 Del Method 06/30/23 10:11 Room Air 06/30/23 08:57 68 06/30/23 08:00 97.6 F 61 20 113/92 H 96 06/30/23 06:00 57 L 06/30/23 04:00 98.5 F 63 16 110/74 93 06/30/23 04:00 100 Room Air 06/30/23 04:00 67 06/30/23 02:00 61
--- NOTE | 2023-06-30 10:13 | P.PNNP_ITS ---
Progress Note: A&P Assessment and Plan (1) LINDSEY (acute kidney injury): Code(s): N17.9 - Acute kidney failure, unspecified Status: Acute Assessment and Plan: * suspect due to chronic prerenal azotemia * evaluation to date: * renal ultrasound with left hydro * urine electrolytes are prerenal * PCK normal * UA unremarkable * some transient improvement with use of dopamine * consult Urology regarding left hydronephrosis * follow trend of repeat labs and UOP (2) Stage 3b chronic kidney disease: Code(s): N18.32 - Chronic kidney disease, stage 3b Status: Chronic Assessment and Plan: * baseline creatinine runs ~ 2.0 - 2.5mg/dl * due to biopsy proven hypertensive and diabetic nephrosclerosis * his underlying CHF and need for diuretic therapy are playing a role as well (3) Edema: Code(s): R60.9 - Edema, unspecified Status: Acute Assessment and Plan: * worsening with subsequent admission * on dopamine * diuretics on hold due to #1 * follow clinical exam, daily weights, and I/Os (4) Congestive heart failure: Code(s): I50.9 - Heart failure, unspecified Status: Chronic Assessment and Plan: * suspect acute on chronic diastolic heart failure based on history * repeat Echo pending * Cardiology following (5) Essential (primary) hypertension: Code(s): I10 - Essential (primary) hypertension Status: Chronic Assessment and Plan: * reasonable control * follow trend of hemodynamis (6) Iron deficiency anemia: Qualifiers: Iron deficiency anemia type: unspecified iron deficiency Qualified Code(s): D50.9 - Iron deficiency anemia, unspecified Code(s): D50.9 - Iron deficiency anemia, unspecified Status: Acute Assessment and Plan: * partly related to LINDSEY and CKD * on IV venofer and Epogen while hospitalized * PRBC trabsfusion per protocol * he reports he has ntibodies so transfusion may be difficult * follow trend of H/H (7) Type 2 diabetes mellitus with diabetic neuropathy: Qualifiers: Diabetes mellitus termination clerk insulin use: without longterm use Qualified Code(s): E11.40 - Type 2 diabetes mellitus with diabetic neuropathy, unspecified Code(s): E11.40 - Type 2 diabetes mellitus with diabetic neuropathy, unspecified Status: Chronic Assessment and Plan: * follow accu-cheks * glycemic control per hospitalists Long extensive discussion (> 20 minutes) with the patient as well as his at bedside regarding his renal dysfunction and the concern that medication therapy alone may not be able to optimize his fluid status and renal function. I did discuss with him the possibility that he may require renal replacement therapy/dialysis if he continues to have ongoing issues with fluid retention/volume overload unresponsive to medical therapy. They both appeared to voice understanding to this possibility. Will continue to follow. Subjective Date/time seen: 06/30/23 10:13 Interval history: Follow-up for acute kidney injury/acute renal failure on chronic kidney disease. Reports better urine output and less swelling/edems in lower extremities alt adrian creatinine up a bit from yesterday; no apparent distress noted; family as well as at bedside and we discussed the case/situation. Exam Narrative: General: WD/WN male in NAD Heart: normal S1 and S2; IRRR, no rub Lungs: clear to auscultation Abdomen: soft, nontender, nondi
--- NOTE | 2023-06-30 10:54 | PM.IMPN ---
Progress Note: A&P Assessment and Plan (1) Acute on chronic kidney failure: Code(s): N17.9 - Acute kidney failure, unspecified; N18.9 - Chronic kidney disease, unspecified Status: Acute (2) Chronic anemia: Code(s): D64.9 - Anemia, unspecified Status: Acute (3) Acute on chronic diastolic CHF (congestive heart failure): Code(s): I50.33 - Acute on chronic diastolic (congestive) heart failure Status: Acute (4) Electrolyte abnormality: Code(s): E87.8 - Other disorders of electrolyte and fluid balance, not elsewhere classified Status: Acute (5) Thrombocytopenia: Code(s): D69.6 - Thrombocytopenia, unspecified Status: Acute (6) Type 2 diabetes mellitus with diabetic neuropathy: Qualifiers: Diabetes mellitus termite inspector insulin use: without termite inspector use Qualified Code(s): E11.40 - Type 2 diabetes mellitus with diabetic neuropathy, unspecified Code(s): E11.40 - Type 2 diabetes mellitus with diabetic neuropathy, unspecified Status: Chronic Plan The patient presented to the emergency department for evaluation of increasing edema as detailed in HPI. bilateral lower extremity edema volume overloaded and has significant bilateral lower extremity edema with mild congestive changes on chest x-ray., possible venous stasis edema Venous Doppler shows no DVT He has been on metolazone recently for this swelling without benefit. Patient received furosemide IV x1 Consult seismograph operator helper for evaluation treatment diuretic medication on hold because of worsening kidney function Order echocardiogram, pending report Chronic AFib Rate is controlled Discontinue Xarelto because of severe anemia, will resume Xarelto when it is okay for cardiology and GI Patient has AFib, bradycardia, started dobutamine per seismograph operator helper Carotid Doppler showed no hemodynamically significant stenosis of the bilateral internal carotid arteries. LINDSEY on CKD His renal function has worsened with a BUN and creatinine of 111 and 3.20. He denies concerns for urinary retention Renal ultrasound: The right kidney measures 10.4 x 6.0 x 6.1 cm. The left kidney measures 9.9 x 5.7 x 6.5 cm. The kidneys demonstrate normal parenchymal echogenicity. There is moderate left hydronephrosis. Partially distended urinary bladder, ureteral jets not visualized during the examination. Nephrology and Cardiology have been consulted for their opinion. on dopamine per seismograph operator helper He has biopsy-proven hypertensive and diabetic nephrosclerosis.? His baseline creatinine is between 2 and 2.5. Patient may have progression of CKD may end up of dialysis. May consider diuretic medications for fluid overload, but up to seismograph operator helper and assistant credit manager evaluation Suspecting acute blood loss anemia Patient is on Xarelto for AFib Hemoglobin 10.0 August 20, 1999 is 3, 7.0 POA, trending down to 6.9 06/28 Chronic anemia likely secondary to chronic renal failure, but the significant drop in hemoglobin may indicate blood loss Transfuse 1 pack RBC 06/28 check for occult blood, immature reticulocyte high, 26.6%, haptoglobin, iron panel: Iron low, transferrin low but transferrin 613 Start IV p.r.n. and Epogen per assistant credit manager Consult GI for evaluation treatment Hold Xarelto Hemoglobin 8.1 today Flank pain post shingles infection Pain is well controlled with gabapentin 300 mg q.h.s. Healing scar over the skin due to shingles infection recently Patient received 7 days valacyclovir, completed course of shingle treatment No flare up now Platelets are a bit low and will be monitored. Potassium will be replaced and monitored as well. Type 2 diabetes initiate sliding scale insulin, Accu-Cheks, and hypoglycemic protocol. Findings and treatment plan were discussed with the patient. Questions were solicited and answered to satisfaction. Subjective Date/time seen: 06/30/23 10:54 Interval history: He feels like his swelling is so
--- NOTE | 2023-06-30 12:45 | WPDURCON ---
Assessment and Plan Assessment and plan (1) Hydronephrosis, left: Code(s): N13.30 - Unspecified hydronephrosis Status: Acute Assessment and Plan: Noted on renal ultrasound. Elevated creatinine. History of chronic renal insufficiency. Will get a noncontrast CT scan to rule out stone or other cause of hydronephrosis. I will also ask the nurses to obtain a postvoid residual urine and call me if greater than 200 cc Further recommendations pending results of CT scan Urology Consult Note HPI Date Seen: 06/30/23 Requesting Physician: Taz Jones MD Primary Care Provider: Ramez Ching MD Consult Narrative Narrative: Khalif Yanez is a 83 year old male who is currently admitted to the hospital for evaluation of edema. He has chronic renal insufficiency with a creatinine in the 2 range. It is now up to 3. He has been seen by Nephrology. Renal ultrasound was performed yesterday which showed moderate left hydronephrosis without a jet. He has no flank pain. He does endorse some mild left lower quadrant pain. He has no blood in the urine. He has no history of stone disease. He has no history of bladder infection. He states his stream is slow. This is chronic for him. According to notes they did a recent bladder scan to check residual urine. I do not see results documented, but no Miller catheter was placed so I assume it was reasonable. He has no other urologic complaints at this time. Review of Systems Review of Systems: All systems reviewed & are unremarkable except as noted in HPI and below PMFSH Past Medical History Medical History Atrial fibrillation B12 deficiency anemia Benign prostatic hyperplasia Chronic anemia Chronic anticoagulation Chronic kidney disease, stage 3b Congestive heart failure Echocardiogram October 2020: Indeterminate diastolic function, EF 65-70%, mild right ventricular enlargement, mildly increased left ventricular wall thickness, mild left atrial enlargement, mild mitral valve regurgitation, mild tricuspid valve regurgitation, moderate pulmonary hypertension with RVSP 59, 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 Essential (primary) hypertension Hyperlipidemia associated with type 2 diabetes mellitus Hypertension associated with diabetes Iron deficiency anemia Mixed hyperlipidemia Pulmonary hypertension Umbilical hernia Surgical History Surgical History Normal colonoscopy (~2007) Status post bilateral knee replacements Status post cataract extraction of both eyes with insertion of intraocular lens Family History Family History Father Cerebrovascular accident Mother Hypertension Sibling Hypertension Kidney disease, chronic, end stage on dialysis Social History Social History Social History: Surrogate medical decision maker: Kathy Yanez, spouse. Code status: Full code. Smoking packs per day: 0.5 Smoking cigarettes per day: 10.0 Years smoked: 3 Smoking pack-years: 1.50 Smoking status: Never smoker Tobacco type: cigarettes Second hand tobacco smoke exposure: No Alcohol intake: never Substance use: never Substance use type: does not use Lack of Transportation: No Lack of Food: Never True Current Housing: I Have Housing Concerned About Future Housing: No Difficulty Paying Gas/Electric Bills: No Difficulty Paying for Meds: No Currently Unemployed: No Education: Associate Degree Difficulty w/ Childcare or Family Care: No Living arrangements: with family Additional living arrangements comments: Lives with spouse of nearly 60 years. They have a son and daughter. Occupation/Education: retired Additional occupation/education comments: Retired from working with [employer]
--- NOTE | 2023-06-30 17:07 | WPDGICN ---
Assessment and Plan Assessment and plan (1) Anemia of chronic disease: Code(s): D63.8 - Anemia in other chronic diseases classified elsewhere Status: Acute Assessment and Plan: probably multifactorial had egd and colonoscopy 2020 because of anemia with + FOBT, no major findings no need to repeat scopes unless obvious gib, will monitor also he is on dopamine to treat renal/cardiac dysfunction (2) Acute on chronic kidney failure: Code(s): N17.9 - Acute kidney failure, unspecified; N18.9 - Chronic kidney disease, unspecified Status: Acute Assessment and Plan: on treatment (3) Atrial fibrillation: Code(s): I48.91 - Unspecified atrial fibrillation Status: Acute (4) Type 2 diabetes mellitus with diabetic neuropathy: Qualifiers: Diabetes mellitus extermination 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 insulin use: without residential use Qualified Code(s): E11.40 - Type 2 diabetes mellitus with diabetic neuropathy, unspecified Code(s): E11.40 - Type 2 diabetes mellitus with diabetic neuropathy, unspecified Status: Chronic (5) Congestive heart failure: Code(s): I50.9 - Heart failure, unspecified Status: Chronic Assessment and Plan: by cardiology GI Consult Note Consult date/time: 06/30/23 17:07 Reason for consult: anemia HPI: Khalif Yanez is a 83 year old male with diastolic LV dysfunction, pulmonary hypertension, chronic kidney disease, type 2 diabetes mellitus, hypertension, chronic anemia admitted to hospital with progressive swelling. He was given metolazone few days prior admission because leg edema, that did not help and still had low urine output. He was told to come to the emergency department for diuresis given ongoing issues and has been evaluated now by cardilogy, he is on low dose dopamine. Labs on admission were significant for hemoglobin of 7.0, platelet 128, sodium 134, potassium 3.0, chloride 95, BUN 111, creatinine 3.20, proBNP 91854. His baseline creatinine ranges between 2.2 and 2.60.?He denies overt gib. 2020 had egd and colonoscopy because of anemia, only diverticulosis, also previous history of c diff Review of Systems Constitutional: Constitutional: Reports fatigue Eyes: Eyes: Denies blurry vision ENT: Reports Normal hearing present Cardiovascular: Cardiovascular: Reports pedal edema and Reports leg edema Respiratory: Respiratory: Denies cough Gastrointestinal: Gastrointestinal: Denies bloating Genitourinary: Genitourinary: Denies hematuria Musculoskeletal: Musculoskeletal: Denies neck pain Integumentary/Breasts: Skin/Breast: Denies rash Neurologic: Denies confusion Psychiatric: Psychiatric: Denies behavioral changes [facility] Past Medical History Medical History Atrial fibrillation B12 deficiency anemia Benign prostatic hyperplasia Chronic anemia Chronic anticoagulation Chronic kidney disease, stage 3b Congestive heart failure Echocardiogram October 2020: Indeterminate diastolic function, EF 65-70%, mild right ventricular enlargement, mildly increased left ventricular wall thickness, mild left atrial enlargement, mild mitral valve regurgitation, mild tricuspid valve regurgitation, moderate pulmonary hypertension with RVSP 59, 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 Essential (primary) hypertension Hyperlipidemia associated with type 2 diabetes mellitus Hypertension associated with diabetes Iron deficiency anemia Mixed hyperlipidemia Pulmonary hypertension Umbilical hernia Surgical History Surgical History Normal colonoscopy (~2007) Status post bilateral knee replacements Status post cataract extraction of both eyes with insertion of intraocular lens Family History Family History Father Cerebrovascular accident Mother Hypertension Sib
[2023-06-30] MEDS: INSULIN ASPART (*BKC) 100 UNITS/ML SUB-Q ×2 (17:27→20:13)
[2023-06-30 17:30] LABS: Glucose Point of Care 223 mg/dl (65-105)
[2023-06-30] MEDS: GABAPENTIN 300 MG CAPSULE PO (20:10)
[2023-06-30 21:10] LABS: Glucose Point of Care 223 mg/dl (65-105)
[2023-06-30] MEDS: FERROUS SULFATE 325 MG TABLET DR 650 MG PO (23:16)
[2023-07-01] VITALS (18 sets, daily range): BP systolic 110–134; BP diastolic 60–64; PULSE 53–87; RESP 16–20; TEMP 36.2–36.7; O2SAT 97–100
[2023-07-01 05:29] LABS: Basophils Percent Auto 0.5 % (0.2-1.2); Eosinophils Absolute Auto 0.1 K/mm3 (0-0.3); Eosinophils Percent Auto 1.1 % (0-4.4); Hematocrit 26.5 % (42.0-52.0); Hemoglobin 7.8 g/dL (14.0-18.0); Immature Granulocyte Absolute 0.04 K/mm3 (0.00-0.031); Immature Granulocyte Percent A 0.6 % (0-0.5); Lymphocytes Percent Auto 15.1 % (18.3-44.2); Mean Corpuscular HGB Conc 29.4 g/dl (32-36); Mean Corpuscular Hemoglobin 24.6 pg (26-34); Mean Corpuscular Volume 83.6 fl (80-100); Mean Platelet Volume 10.6 fl (7.4-10.4); Monocytes Absolute Auto 0.9 K/mm3 (0.1-0.6); Monocytes Percent Auto 14.2 % (2.6-8.5); Neutrophils Absolute Auto 4.5 K/mm3 (1.3-6.7); Neutrophils Percent Auto 68.5 % (45.5-73.1); Platelet Count Result 139 k/mm3 (150-375); Red Blood Count 3.17 M/mm3 (4.6-6.20); Red Cell Distribution Width 21.2 % (11.5-14.5); White Blood Count 6.6 K/mm3 (4.5-10.0)
[2023-07-01 05:41] LABS: Alanine Aminotransferase 11 U/L (6-50); Albumin Level 2.9 g/dL (3.5-5.1); Alkaline Phosphatase 99 U/L (38-126); Anion Gap 9 mmol/L (8-16); Aspartate Amino Transferase 18 U/L (17-59); Bilirubin,Total 1.2 mg/dL (0.2-1.3); Blood Urea Nitrogen 120 mg/dL (9-20); Carbon Dioxide 24 mmol/L (22-30); Chloride 95 mmol/L (98-107); Estimated CRCL calculation 19 ml/min; Estimated Glomerular Filt Rate 20; Glucose 156 mg/dL (65-110); Potassium 4.7 mmol/L (3.4-5.0); Sodium 128 mmol/L (137-145)
[2023-07-01 07:30] LABS: Haptoglobin 123 mg/dL (43-212)
[2023-07-01] MEDS: ATORVASTATIN 10 MG TABLET PO (08:59)
[2023-07-01] MEDS: CHOLECALCIFEROL 1,000 UNITS TABLET 2000 UNITS PO (08:59)
[2023-07-01] MEDS: MAGNESIUM OXIDE 400 MG TABLET PO (09:00)
[2023-07-01] MEDS: allopurinoL 100 MG TABLET PO (09:00)
[2023-07-01] MEDS: carvediloL 12.5 MG TABLET PO ×2 (09:01→20:41)
--- NOTE | 2023-07-01 09:05 | PM.PNNEP ---
Progress Note: A&P Assessment and Plan (1) LINDSEY (acute kidney injury): Code(s): N17.9 - Acute kidney failure, unspecified Status: Acute Assessment and Plan: suspect due to chronic prerenal azotemia evaluation to date: renal ultrasound with left hydro urine electrolytes are prerenal PCK normal UA unremarkable no further improvement with dopamine so discontinued Urology recommendations noted CT scan results noted.... bilateral kidney masses measuring up to 3.1 cm on the left which may be hemorrhagic cysts or less likely neoplasms. Abdomen MRI without and with contrast is recommended follow trend of repeat labs and UOP (2) Stage 3b chronic kidney disease: Code(s): N18.32 - Chronic kidney disease, stage 3b Status: Chronic Assessment and Plan: baseline creatinine runs ~ 2.0 - 2.5mg/dl due to biopsy proven hypertensive and diabetic nephrosclerosis his underlying CHF and need for diuretic therapy are playing a role as well (3) Edema: Code(s): R60.9 - Edema, unspecified Status: Acute Assessment and Plan: worsening with subsequent admission off dopamine diuretics were on hold due to #1 given clinical exam, daily weights, and I/Os -- may need to resume diuretic therapy and assess tolerance he remains at risk for HEALTH INFORMATION SPECIALIST/dialysis (4) Congestive heart failure: Code(s): I50.9 - Heart failure, unspecified Status: Chronic Assessment and Plan: suspect acute on chronic diastolic heart failure based on history repeat Echo noted Cardiology following (5) Essential (primary) hypertension: Code(s): I10 - Essential (primary) hypertension Status: Chronic Assessment and Plan: reasonable control follow trend of hemodynamis (6) Iron deficiency anemia: Qualifiers: Iron deficiency anemia type: unspecified iron deficiency Qualified Code(s): D50.9 - Iron deficiency anemia, unspecified Code(s): D50.9 - Iron deficiency anemia, unspecified Status: Acute Assessment and Plan: partly related to LINDSEY and CKD on IV venofer and Epogen while hospitalized PRBC transfusion per protocol he reports he has antibodies so transfusion may be difficult follow trend of H/H (7) Type 2 diabetes mellitus with diabetic neuropathy: Qualifiers: Diabetes mellitus custom designer insulin use: without custom designer use Qualified Code(s): E11.40 - Type 2 diabetes mellitus with diabetic neuropathy, unspecified Code(s): E11.40 - Type 2 diabetes mellitus with diabetic neuropathy, unspecified Status: Chronic Assessment and Plan: follow accu-cheks glycemic control per hospitalists Will continue to follow. Subjective Date/time seen: 07/01/23 09:05 Interval history: Follow-up for acute kidney injury/acute renal failure on chronic kidney disease. Renal function continue to worsen with minimal urine output (as noted by I/Os) although the patient seems to think that his lower extremity swelling/edema is better; off dopamine at this time; reports some dyspnea more so with exertional activities. Exam Narrative: General: WD/WN male in NAD Heart: normal S1 and S2; IRRR, no rub Lungs: clear anteriorly; few crackles at bases Abdomen: soft, nontender, nondistended, positive bowel sounds Extremities: no cyanosis or clubbing; 2+ edema Skin: warm and intact Objective Data Vital Signs Vital Signs: Vital Signs Temp Pulse Resp BP Pulse Ox O2 Del Method 07/01/23 09:04 97.5 F L 65 20 123/60 97 07/01/23 09:01 62 07/01/23 06:00 60 07/01/23 04:00 59 L 07/01/23 04:00 97.9 F 56 L 18 110/64 98 07/01/23 04:00 55 L 18 99 Room Air 07/01/23 02:00 55 L 07/01/23 00:00 53 L 18 99 Room Air 07/01/23 00:00 53 L 07/01/23 00:00 98.1 F 71 18 115/60 99 06/30/23 22:00 47 L 06/30/23 20:00 63 06/30
--- NOTE | 2023-07-01 09:05 | P.PNNP_ITS ---
Progress Note: A&P Assessment and Plan (1) LINDSEY (acute kidney injury): Code(s): N17.9 - Acute kidney failure, unspecified Status: Acute Assessment and Plan: * suspect due to chronic prerenal azotemia * evaluation to date: * renal ultrasound with left hydro * urine electrolytes are prerenal * PCK normal * UA unremarkable * no further improvement with dopamine so discontinued * Urology recommendations noted * CT scan results noted.... bilateral kidney masses measuring up to 3.1 cm on the left which may be hemorrhagic cysts or less likely neoplasms. Abdomen MRI without and with contrast is recommended * follow trend of repeat labs and UOP (2) Stage 3b chronic kidney disease: Code(s): N18.32 - Chronic kidney disease, stage 3b Status: Chronic Assessment and Plan: * baseline creatinine runs ~ 2.0 - 2.5mg/dl * due to biopsy proven hypertensive and diabetic nephrosclerosis * his underlying CHF and need for diuretic therapy are playing a role as well (3) Edema: Code(s): R60.9 - Edema, unspecified Status: Acute Assessment and Plan: * worsening with subsequent admission * off dopamine * diuretics were on hold due to #1 * given clinical exam, daily weights, and I/Os -- may need to resume diuretic therapy and assess tolerance * he remains at risk for NURSE SUBSTANCE ABUSE/dialysis (4) Congestive heart failure: Code(s): I50.9 - Heart failure, unspecified Status: Chronic Assessment and Plan: * suspect acute on chronic diastolic heart failure based on history * repeat Echo noted * Cardiology following (5) Essential (primary) hypertension: Code(s): I10 - Essential (primary) hypertension Status: Chronic Assessment and Plan: * reasonable control * follow trend of hemodynamis (6) Iron deficiency anemia: Qualifiers: Iron deficiency anemia type: unspecified iron deficiency Qualified Code(s): D50.9 - Iron deficiency anemia, unspecified Code(s): D50.9 - Iron deficiency anemia, unspecified Status: Acute Assessment and Plan: * partly related to LINDSEY and CKD * on IV venofer and Epogen while hospitalized * PRBC transfusion per protocol * he reports he has antibodies so transfusion may be difficult * follow trend of H/H (7) Type 2 diabetes mellitus with diabetic neuropathy: Qualifiers: Diabetes mellitus [facility] insulin use: without [facility] use Qualified Code(s): E11.40 - Type 2 diabetes mellitus with diabetic neuropathy, unspecified Code(s): E11.40 - Type 2 diabetes mellitus with diabetic neuropathy, unspecified Status: Chronic Assessment and Plan: * follow accu-cheks * glycemic control per hospitalists Will continue to follow. Subjective Date/time seen: 07/01/23 09:05 Interval history: Follow-up for acute kidney injury/acute renal failure on chronic kidney disease. Renal function continue to worsen with minimal urine output (as noted by I/Os) although the patient seems to think that his lower extremity swelling/edema is better; off dopamine at this time; reports some dyspnea more so with exertional activities. Exam Narrative: General: WD/WN male in NAD Heart: normal S1 and S2; IRRR, no rub Lungs: clear anteriorly; few crackles at bases Abdomen: soft, nontender, nondistended, positive bowel sounds Extremities: no cyanosis or clubbing; 2+ edema Skin: warm and intact Objective Data
[2023-07-01] MEDS: EPOETIN ALFA-EPBX 10,000 UNITS/ML VIAL 10000 UNITS SUB-Q (09:46)
[2023-07-01] MEDS: IRON SUCROSE COMPLEX 200 MG in SODIUM CHLORIDE 0.9% IV 100 ML 100 MG IVPB (09:46)
--- NOTE | 2023-07-01 10:41 | PCOTNOTE ---
The patient treatment was not able to be completed patient was receiving IV and was sleeping. was present and stated to come back later. Will plan to continue treatment per plan of care.
[2023-07-01 12:49] LABS: Glucose Point of Care 289 mg/dl (65-105)
[2023-07-01] MEDS: INSULIN ASPART (*BKC) 100 UNITS/ML SUB-Q ×2 (12:56→20:41)
--- NOTE | 2023-07-01 15:29 | PM.IMPN ---
Progress Note: A&P Assessment and Plan (1) Acute on chronic kidney failure: Code(s): N17.9 - Acute kidney failure, unspecified; N18.9 - Chronic kidney disease, unspecified Status: Acute (2) Chronic anemia: Code(s): D64.9 - Anemia, unspecified Status: Acute (3) Acute on chronic diastolic CHF (congestive heart failure): Code(s): I50.33 - Acute on chronic diastolic (congestive) heart failure Status: Acute (4) Electrolyte abnormality: Code(s): E87.8 - Other disorders of electrolyte and fluid balance, not elsewhere classified Status: Acute (5) Thrombocytopenia: Code(s): D69.6 - Thrombocytopenia, unspecified Status: Acute (6) Type 2 diabetes mellitus with diabetic neuropathy: Qualifiers: Diabetes mellitus 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 bilateral lower extremity edema volume overloaded and has significant bilateral lower extremity edema with mild congestive changes on chest x-ray., possible venous stasis edema Venous Doppler shows no DVT He has been on metolazone recently for this swelling without benefit. Consult tinner helper for evaluation treatment diuretic medication on hold because of worsening kidney function Ordered echocardiogram order bmp Chronic AFib Rate is controlled Discontinue Xarelto because of severe anemia, will resume Xarelto when it is okay for cardiology and GI Patient has AFib, bradycardia, started dobutamine per tinner helper Carotid Doppler showed no hemodynamically significant stenosis of the bilateral internal carotid arteries. LINDSEY on CKD His renal function has worsened with a BUN and creatinine of 111 and 3.20. He denies concerns for urinary retention Renal ultrasound: The right kidney measures 10.4 x 6.0 x 6.1 cm. The left kidney measures 9.9 x 5.7 x 6.5 cm. The kidneys demonstrate normal parenchymal echogenicity. There is moderate left hydronephrosis. Partially distended urinary bladder, ureteral jets not visualized during the examination. Nephrology and Cardiology have been consulted for their opinion. on dopamine per tinner helper He has biopsy-proven hypertensive and diabetic nephrosclerosis.? His baseline creatinine is between 2 and 2.5. Patient may have progression of CKD may end up of dialysis. May consider diuretic medications for fluid overload, but up to tinner helper and office engineer evaluation Suspecting acute blood loss anemia Patient is on Xarelto for AFib Hemoglobin 10.0 August 20, 1999 is 3, 7.0 POA, trending down to 6.9 06/28 Chronic anemia likely secondary to chronic renal failure, but the significant drop in hemoglobin may indicate blood loss Transfuse 1 pack RBC 06/28 check for occult blood, immature reticulocyte high, 26.6%, haptoglobin, iron panel: Iron low, transferrin low but transferrin 613 Start IV p.r.n. and Epogen per office engineer Consult GI for evaluation treatment Hold Xarelto Hemoglobin 8.1 today order cbc Flank pain post shingles infection Pain is well controlled with gabapentin 300 mg q.h.s. Healing scar over the skin due to shingles infection recently Patient received 7 days valacyclovir, completed course of shingle treatment Stable to active lesions Platelets are a bit low and will be monitored. Potassium will be replaced and monitored as well. Type 2 diabetes initiate sliding scale insulin, Accu-Cheks, and hypoglycemic protocol. F Subjective Date/time seen: 07/01/23 15:29 Interval history: Pt is much the same as yesterday Review of Systems Review of Systems: Mild SOB Exam Narrative: General: Nontoxic-appearing gentleman the semi-
--- NOTE | 2023-07-01 15:33 | WPDGIPROGNO ---
Progress Note: A&P Assessment and Plan (1) Anemia of chronic disease: Code(s): D63.8 - Anemia in other chronic diseases classified elsewhere Status: Acute Assessment and Plan: had egd and colonoscopy 2 years ago for same reason without findings h/h stable monitor no need to repeat unless any new changes denies overt gib (2) Occult blood in stools: Code(s): R19.5 - Other fecal abnormalities Status: Acute (3) Acute on chronic diastolic CHF (congestive heart failure): Code(s): I50.33 - Acute on chronic diastolic (congestive) heart failure Status: Acute Assessment and Plan: by cardiology s/p dopamine gtt (4) CKD stage 3 secondary to diabetes: Code(s): E11.22 - Type 2 diabetes mellitus with diabetic chronic kidney disease; N18.30 - Chronic kidney disease, stage 3 unspecified Status: Acute (5) Atrial fibrillation: Code(s): I48.91 - Unspecified atrial fibrillation Status: Acute Subjective Date/time seen: 07/01/23 15:33 Interval history: he is sitting up in chair and is comfortable, still leg edema, not longer on dopamine gtt had BM today is at bedside Review of Systems Review of Systems: All systems reviewed & are unremarkable except as noted in HPI and below Exam Const: General: comfortable HENMT: Face/Nose/Sinus: Normal nares present Eyes: Sclera: sclerae normal Neck: Neck: supple Resp: Auscultation: rhonchi Cardio: Rhythm: abnormal rhythm irregularly irregular GI: GI Palp: Yes Soft to palpation, No Tenderness to palpation present (GI) and No Guarding due to palpation present (GI) Skin: General skin exam: normal color Neuro: Speech: normal speech Motor exam (neuro): 5/5 motor strength present throughout Extrem: General: pedal edema Psych: Affect: normal affect Objective Data Vital Signs Vital Signs: Vital Signs - 24 hr 06/30/23 16:00 06/30/23 16:40 06/30/23 18:00 Temperature 97.9 F Pulse Rate 59 L 59 L 64 Respiratory Rate 22 H Blood Pressure 132/63 Pulse Oximetry 100 Oxygen Delivery 06/30/23 20:00 06/30/23 20:00 06/30/23 20:10 Temperature 98.3 F Pulse Rate 53 L 64 58 L Respiratory Rate 18 22 H Blood Pressure 122/55 L Pulse Oximetry 99 100 Oxygen Delivery Room Air 06/30/23 20:00 06/30/23 22:00 07/01/23 00:00 Temperature 98.1 F Pulse Rate 63 47 L 71 Respiratory Rate 18 Blood Pressure 115/60 Pulse Oximetry 99 Oxygen Delivery 07/01/23 00:00 07/01/23 00:00 07/01/23 02:00 Temperature Pulse Rate 53 L 53 L 55 L Respiratory Rate 18 Blood Pressure Pulse Oximetry 99 Oxygen Delivery Room Air 07/01/23 04:00 07/01/23 04:00 07/01/23 04:00 Temperature 97.9 F Pulse Rate 55 L 56 L 59 L Respiratory Rate 18 18 Blood Pressure 110/64 Pulse Oximetry 99 98 Oxygen Delivery Room Air 07/01/23 06:00 07/01/23 09:01 07/01/23 09:04 Temperature 97.5 F L Pulse Rate 60 62 65 Respiratory Rate 20 Blood Pressure 123/60 Pulse Oximetry 97 Oxygen Delivery 07/01/23 12:00 Temperature 97.2 F L Pulse Rate 53 L Respiratory Rate 18 Blood Pressure 123/63 Pulse Oximetry 99 Oxygen Delivery Intake/Output Intake/Output: Intake & Output 06/28/23 06/29/23 06/30/23 07/01/23 23:59 23:59 23:59 23:59 Intake Total 710 1080 3010 960 Output Total 1500 1475 1100 300 Balance -790 -395 1910 660 Meds/Results Medications: Active Medications Generic Name Dose Route Start Last Admin Trade Name Freq PRN Reason Stop Dose Admin Albuterol 2 puff 06/27/23 22:49 Albuterol Sulfate (*Sp) Aerosol 1 Puff INHALATION Q6HRT PRN Shortness Of Breath Allopurinol 100 mg 06/28/23 09:00 07/01/23 09:00 Allopurinol 100 Mg Tablet PO 100 mg DAILY CESAR Administration Atorvastatin Calcium 10 mg 06/28/23 09:00 07/01/23 08:59 Atorvastatin 10 Mg Tablet PO 10 mg DAILY CESAR Administration Calcitriol 0.25 mcg 06/29/23 09:0
--- NOTE | 2023-07-01 15:56 | PM.PNCARD ---
Progress Note: A&P Assessment and Plan (1) Atrial fibrillation: Code(s): I48.91 - Unspecified atrial fibrillation Status: Acute Assessment and Plan: Chronic atrial fibrillation managed with rate control and anticoagulation. (2) Congestive heart failure: Code(s): I50.9 - Heart failure, unspecified Status: Acute Assessment and Plan: Acute on chronic diastolic heart failure. Diuretics have been held because of LINDSEY. He was on dopamine which was transiently helpful. Dopamine was stopped yesterday as it was felt to not be providing much benefit. He did have improvement in his SCr on Friday, but yesterday worsened to 3.4 and today is 3.5. He was found to have left hydronephrosis and urology has been consulted for this. Nephrology is following along as well. Overall, he remains clinically stable but significantly volume overloaded. Spoke with Dr. Johnson regarding plan for volume management. Will attempt diuretic challenge with 2mg IV bumex q12h and if he does not respond, unfortunately will require hemodialysis for volume removal. Will continue to follow along. Subjective Date/time seen: 07/01/23 15:56 Interval history: Cardiology follow up for CHF, AF Feeling good today. Lower extremity swelling is unchanged from yesterday. Review of Systems Constitutional: Constitutional: Reports lethargy Eyes: Eyes: Reports no additional eye complaints ENT: Reports system reviewed and no additional complaints, except as documented Cardiovascular: Cardiovascular: Reports leg edema and Reports dyspnea on exertion Respiratory: Respiratory: Reports dyspnea on exertion Gastrointestinal: Gastrointestinal: Reports no additional gastrointestinal complaints Musculoskeletal: Musculoskeletal: Reports no additional musculoskeletal complaints Integumentary/Breasts: Skin/Breast: Reports system reviewed and no additional complaints, except as docu Neurologic: Reports system reviewed and no additional complaints, except as documented Endocrine: Endocrine: Reports no additional endocrine complaints Hematologic/Lymphatic: Hematologic/Lymphatic: Reports no additional hematologic/lymphatic complaints Allergic/Immunologic: Allergic/Immunologic: Reports no additional allergic/immunologic complaints Exam Const: General: comfortable and no acute distress Other: Pleasant overweight elderly man no distress HENMT: Mouth: Yes moist mucous membranes Eyes: Sclera: sclerae normal Neck: Neck: supple and JVD Other: Patient has modest elevation of jugular venous pressure at 45? Resp: Effort & Inspection: normal respiratory effort Auscultation: clear to auscultation bilaterally and crackles (base) on the left Other: Healing rash from herpes zoster noted left flank Cardio: Rhythm: abnormal rhythm irregularly irregular Heart sounds: Murmur heart sound present diastolic GI: Auscultation: normal bowel sounds Skin: General skin exam: normal color Neuro: Other: Alert and oriented Extrem: Other: Moderate bilateral lower extremity edema extending to thighs. Objective Data Vital Signs Vital Signs: Vital Signs - 24 hr 06/30/23 16:00 06/30/23 16:40 06/30/23 18:00 Temperature 36.6 C Pulse Rate 59 L 59 L 64 Respiratory Rate 22 H Blood Pressure 132/63 Pulse Oximetry 100 Oxygen Delivery 06/30/23 20:00 06/30/23 20:00 06/30/23 20:10 Temperature 36.8 C Pulse Rate 53 L 64 58 L Respiratory Rate 18 22 H Blood Pressure 122/55 L Pulse Oximetry 99 100 Oxygen Delivery Room Air 06/30/23 20:00 06/30/23 22:00 07/01/23 00:00 Temperature 36.7 C Pulse Rate 63 47 L 71 Respiratory Rate 18 Blood Pressure 115/60 Pulse Oximetry 99 Oxygen Delivery 07/01/23 00:00 07/01/23 00:00 07/01/23 02:00 Temperature Pulse Rate 53 L 53 L 55 L Respiratory Rate 18 Blood Pressure Pulse Oximetry 99 Oxygen Delivery Room Air 07/01/23 04
[2023-07-01] MEDS: BUMETANIDE INJ 1 MG/4 ML VIAL 2 MG IV PUSH (17:56)
[2023-07-01] MEDS: GABAPENTIN 300 MG CAPSULE PO (20:41)
[2023-07-01 21:18] LABS: Glucose Point of Care 339 mg/dl (65-105)
[2023-07-02] VITALS (18 sets, daily range): BP systolic 106–127; BP diastolic 55–81; PULSE 50–69; RESP 16–22; TEMP 36–36.8; O2SAT 96–100
[2023-07-02 06:33] LABS: Basophils Percent Auto 0.7 % (0.2-1.2); Eosinophils Absolute Auto 0.1 K/mm3 (0-0.3); Eosinophils Percent Auto 1.7 % (0-4.4); Hematocrit 25.7 % (42.0-52.0); Hemoglobin 7.6 g/dL (14.0-18.0); Immature Granulocyte Absolute 0.02 K/mm3 (0.00-0.031); Immature Granulocyte Percent A 0.3 % (0-0.5); Lymphocytes Absolute Auto 0.77 K/mm3 (0.9-3.2); Lymphocytes Percent Auto 13.3 % (18.3-44.2); Mean Corpuscular HGB Conc 29.6 g/dl (32-36); Mean Corpuscular Hemoglobin 24.7 pg (26-34); Mean Corpuscular Volume 83.4 fl (80-100); Mean Platelet Volume 10.4 fl (7.4-10.4); Monocytes Absolute Auto 0.7 K/mm3 (0.1-0.6); Monocytes Percent Auto 12.1 % (2.6-8.5); Neutrophils Absolute Auto 4.1 K/mm3 (1.3-6.7); Neutrophils Percent Auto 71.9 % (45.5-73.1); Platelet Count Result 147 k/mm3 (150-375); Red Blood Count 3.08 M/mm3 (4.6-6.20); Red Cell Distribution Width 21.7 % (11.5-14.5); White Blood Count 5.8 K/mm3 (4.5-10.0)
[2023-07-02 07:13] LABS: Alanine Aminotransferase 12 U/L (6-50); Albumin Level 2.9 g/dL (3.5-5.1); Alkaline Phosphatase 115 U/L (38-126); Anion Gap 9 mmol/L (8-16); Aspartate Amino Transferase 20 U/L (17-59); Calcium 7.9 mg/dL (8.4-10.2); Carbon Dioxide 26 mmol/L (22-30); Chloride 94 mmol/L (98-107); Estimated CRCL calculation 18 ml/min; Estimated Glomerular Filt Rate 19; Glucose 172 mg/dL (65-110); Potassium 4.5 mmol/L (3.4-5.0); Sodium 129 mmol/L (137-145)
[2023-07-02 07:14] LABS: Blood Urea Nitrogen 129 mg/dL (9-20)
[2023-07-02 08:14] LABS: Glucose Point of Care 175 mg/dl (65-105)
--- NOTE | 2023-07-02 08:44 | PC.NURSE ---
Patient transferred via bed to dialysis without issue.
[2023-07-02] MEDS: BUMETANIDE INJ 1 MG/4 ML VIAL 2 MG IV PUSH ×2 (09:18→17:23)
[2023-07-02] MEDS: allopurinoL 100 MG TABLET PO (09:19)
[2023-07-02] MEDS: MAGNESIUM OXIDE 400 MG TABLET PO (09:19)
[2023-07-02] MEDS: CHOLECALCIFEROL 1,000 UNITS TABLET 2000 UNITS PO (09:19)
[2023-07-02] MEDS: carvediloL 12.5 MG TABLET PO ×2 (09:20→20:28)
[2023-07-02] MEDS: ATORVASTATIN 10 MG TABLET PO (09:22)
[2023-07-02] MEDS: calcitrioL 0.25 MCG CAPSULE PO (09:29)
[2023-07-02] MEDS: IRON SUCROSE COMPLEX 200 MG in SODIUM CHLORIDE 0.9% IV 100 ML 220 MG IVPB (09:30)
[2023-07-02 12:06] LABS: Glucose Point of Care 278 mg/dl (65-105)
[2023-07-02] MEDS: INSULIN ASPART (*BKC) 100 UNITS/ML SUB-Q ×2 (12:07→20:32)
--- NOTE | 2023-07-02 12:11 | PM.PNCARD ---
Progress Note: A&P Assessment and Plan (1) Atrial fibrillation: Code(s): I48.91 - Unspecified atrial fibrillation Status: Acute Assessment and Plan: Chronic atrial fibrillation heart rate generally controlled with carvedilol 12.5 mg twice daily. Anticoagulation had been held secondary to anemia and potential need for hemodialysis access this hospitalization. Discussed at length this concern overall. will need to coordinate with Nephrology as a would not want to resume Xarelto only to hold and delay access placement of necessary for several days. As such, to reduce block stroke risk and for more control if H&H continues to decline will initiate heparin infusion close observation of blood counts and platelet. Monitor for bleeding. Discussed with patient and family at bedside they agreed with plan of care. If dialysis access is not needed resume oral anticoagulation prior to discharge. Start heparin infusion per protocol with 2000 units maximum bolus. Patient is complicated with multiple comorbidities. We discussed the delicate balance with regards to volume management, atrial fibrillation, anticoagulation and renal failure. (2) Congestive heart failure: Qualifiers: Heart failure type: diastolic Heart failure chronicity: acute on chronic Qualified Code(s): I50.33 - Acute on chronic diastolic (congestive) heart failure Code(s): I50.9 - Heart failure, unspecified Status: Acute Assessment and Plan: Acute on chronic diastolic heart failure. Continue IV Bumex 2 mg twice daily. Monitor renal function electrolytes very closely as well as input and output, daily weight. Patient is not making much urine but states his edema is a little better today. per available documentation he is not experiencing any significant diuretic effect thus far. I suspect he will require dialysis for volume management in the very near future. Defer to Nephrology in this regard. (3) Hypertension associated with diabetes: Code(s): E11.59 - Type 2 diabetes mellitus with other circulatory complications; I15.2 - Hypertension secondary to endocrine disorders Status: Acute Assessment and Plan: BP remains reasonably controlled. Continue carvedilol 12.5 mg twice daily. (4) Acute on chronic kidney failure: Qualifiers: Acute renal failure type: unspecified Chronic kidney disease stage: stage 4 (severe) Qualified Code(s): N17.9 - Acute kidney failure, unspecified; N18.4 - Chronic kidney disease, stage 4 (severe) Code(s): N17.9 - Acute kidney failure, unspecified; N18.9 - Chronic kidney disease, unspecified Status: Chronic Assessment and Plan: Worsening renal failure, concern about uremia given significant BUN elevation. Creatinine up to 3.9 today. No clear evidence that dopamine had a significant clinical impact although creatinine did transiently improve. Appreciate Nephrology involvement recommendations. Anticipate he will require hemodialysis access and initiation of hemodialysis. (5) Anemia: Code(s): D64.9 - Anemia, unspecified Status: Acute Assessment and Plan: Appreciate GI involvement and recommendations. No indication for repeat evaluation. He is receiving IV iron given his anemia. No clear evidence for active bleed. Follow H&H closely with re-initiation of systemic anticoagulation. (6) Thrombocytopenia: Code(s): D69.6 - Thrombocytopenia, unspecified Status: Acute Assessment and Plan: Stable, monitor for bleeding and follow trends. Subjective Date/time seen: Date of service:07/02/23 12:11 Interval history: Cardiology follow up for CHF, AF Patient dozing off intermittently Of which there concern but No significant confusion as reported by family at bedside. patient denies nausea, appetite is stable. Ongoing lower extremity edema although he feels this has improved somewhat. He denies chest pain or roxy
--- NOTE | 2023-07-02 12:47 | PM.PNNEP ---
Progress Note: A&P Assessment and Plan (1) LINDSEY (acute kidney injury): Code(s): N17.9 - Acute kidney failure, unspecified Status: Acute Assessment and Plan: suspect due to chronic prerenal azotemia evaluation to date: renal ultrasound with left hydro urine electrolytes are prerenal PCK normal UA unremarkable no further improvement with dopamine so discontinued Urology recommendations noted CT scan results noted.... bilateral kidney masses measuring up to 3.1 cm on the left which may be hemorrhagic cysts or less likely neoplasms. Abdomen MRI without and with contrast is recommended follow trend of repeat labs and UOP (2) Stage 3b chronic kidney disease: Code(s): N18.32 - Chronic kidney disease, stage 3b Status: Chronic Assessment and Plan: baseline creatinine runs ~ 2.0 - 2.5mg/dl due to biopsy proven hypertensive and diabetic nephrosclerosis his underlying CHF and need for diuretic therapy are playing a role as well (3) Edema: Code(s): R60.9 - Edema, unspecified Status: Acute Assessment and Plan: worsening with subsequent admission off dopamine IV diuretics resumed follow clinical exam, daily weights, and I/Os he remains at risk for 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/dialysis - discussed again with patient and at bedside (4) Congestive heart failure: Code(s): I50.9 - Heart failure, unspecified Status: Chronic Assessment and Plan: suspect acute on chronic diastolic heart failure based on history repeat Echo noted Cardiology following (5) Essential (primary) hypertension: Code(s): I10 - Essential (primary) hypertension Status: Chronic Assessment and Plan: reasonable control follow trend of hemodynamis (6) Iron deficiency anemia: Qualifiers: Iron deficiency anemia type: unspecified iron deficiency Qualified Code(s): D50.9 - Iron deficiency anemia, unspecified Code(s): D50.9 - Iron deficiency anemia, unspecified Status: Acute Assessment and Plan: partly related to LINDSEY and CKD on IV venofer and Epogen while hospitalized PRBC transfusion per protocol he reports he has antibodies so transfusion may be difficult follow trend of H/H (7) Type 2 diabetes mellitus with diabetic neuropathy: Qualifiers: Diabetes mellitus fci insulin use: without fci use Qualified Code(s): E11.40 - Type 2 diabetes mellitus with diabetic neuropathy, unspecified Code(s): E11.40 - Type 2 diabetes mellitus with diabetic neuropathy, unspecified Status: Chronic Assessment and Plan: follow accu-cheks glycemic control per hospitalists Will continue to follow. Subjective Date/time seen: 07/02/23 12:47 Interval history: Follow-up for acute kidney injury/acute renal failure on chronic kidney disease. Restarted on IV diuretic therapy to assess his response to this intervention and to see how his renal function would tolerated; BUN + creatinine up a bit by AM labs; no apparent distress voiced at the time of my visit. Exam Narrative: General: WD/WN male in NAD Heart: normal S1 and S2; IRRR, no rub Lungs: clear anteriorly; few crackles at bases Abdomen: soft, nontender, nondistended, positive bowel sounds Extremities: no cyanosis or clubbing; 2+ edema Skin: warm and intact Objective Data Vital Signs Vital Signs: Vital Signs Temp Pulse Resp BP Pulse Ox O2 Del Method 07/02/23 12:00 96.8 F L 56 L 22 H 112/61 100 07/02/23 10:00 65 07/02/23 08:00 56 L 07/02/23 08:00 97 Room Air 07/02/23 09:20 57 L 07/02/23 07:17 97.7 F 57 L 18 119/61 97 07/02/23 06:00 56 L 07/02/23 04:00 62 18 96 Room Air 07/02/23 04:00 62 07/02/23 02:00 66 07/02/23 04:00 98.3 F 68 18 127/55 L 96 07/02/23 00:00 69 16 99 Room Air 07/02/23 00:00 69 07/01/23 23:44 98.1
--- NOTE | 2023-07-02 12:47 | P.PNNP_ITS ---
Progress Note: A&P Assessment and Plan (1) LINDSEY (acute kidney injury): Code(s): N17.9 - Acute kidney failure, unspecified Status: Acute Assessment and Plan: * suspect due to chronic prerenal azotemia * evaluation to date: * renal ultrasound with left hydro * urine electrolytes are prerenal * PCK normal * UA unremarkable * no further improvement with dopamine so discontinued * Urology recommendations noted * CT scan results noted.... bilateral kidney masses measuring up to 3.1 cm on the left which may be hemorrhagic cysts or less likely neoplasms. Abdomen MRI without and with contrast is recommended * follow trend of repeat labs and UOP (2) Stage 3b chronic kidney disease: Code(s): N18.32 - Chronic kidney disease, stage 3b Status: Chronic Assessment and Plan: * baseline creatinine runs ~ 2.0 - 2.5mg/dl * due to biopsy proven hypertensive and diabetic nephrosclerosis * his underlying CHF and need for diuretic therapy are playing a role as well (3) Edema: Code(s): R60.9 - Edema, unspecified Status: Acute Assessment and Plan: * worsening with subsequent admission * off dopamine * IV diuretics resumed * follow clinical exam, daily weights, and I/Os * he remains at risk for 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 SALES/dialysis - discussed again with patient and at bedside (4) Congestive heart failure: Code(s): I50.9 - Heart failure, unspecified Status: Chronic Assessment and Plan: * suspect acute on chronic diastolic heart failure based on history * repeat Echo noted * Cardiology following (5) Essential (primary) hypertension: Code(s): I10 - Essential (primary) hypertension Status: Chronic Assessment and Plan: * reasonable control * follow trend of hemodynamis (6) Iron deficiency anemia: Qualifiers: Iron deficiency anemia type: unspecified iron deficiency Qualified Code(s): D50.9 - Iron deficiency anemia, unspecified Code(s): D50.9 - Iron deficiency anemia, unspecified Status: Acute Assessment and Plan: * partly related to LINDSEY and CKD * on IV venofer and Epogen while hospitalized * PRBC transfusion per protocol * he reports he has antibodies so transfusion may be difficult * follow trend of H/H (7) Type 2 diabetes mellitus with diabetic neuropathy: Qualifiers: Diabetes mellitus watermaster insulin use: without watermaster use Qualified Code(s): E11.40 - Type 2 diabetes mellitus with diabetic neuropathy, unspecified Code(s): E11.40 - Type 2 diabetes mellitus with diabetic neuropathy, unspecified Status: Chronic Assessment and Plan: * follow accu-cheks * glycemic control per hospitalists Will continue to follow. Subjective Date/time seen: 07/02/23 12:47 Interval history: Follow-up for acute kidney injury/acute renal failure on chronic kidney disease. Restarted on IV diuretic therapy to assess his response to this intervention and to see how his renal function would tolerated; BUN + creatinine up a bit by AM labs; no apparent distress voiced at the time of my visit. Exam Narrative: General: WD/WN male in NAD Heart: normal S1 and S2; IRRR, no rub Lungs: clear anteriorly; few crackles at bases Abdomen: soft, nontender, nondistended, positive bowel sounds Extremities: no cyanosis or clubbing; 2+ edema Skin: warm and intact Objective Data Vital Signs Vital Signs:
--- NOTE | 2023-07-02 12:54 | PC.NURSE ---
Patient and family notified of room transfer.Patient transferred to room 206-1 via chair without issue. Spouse at bedside.
--- NOTE | 2023-07-02 15:44 | PM.IMPN ---
Progress Note: A&P Assessment and Plan (1) Acute on chronic kidney failure: Code(s): N17.9 - Acute kidney failure, unspecified; N18.9 - Chronic kidney disease, unspecified Status: Acute (2) Chronic anemia: Code(s): D64.9 - Anemia, unspecified Status: Acute (3) Acute on chronic diastolic CHF (congestive heart failure): Code(s): I50.33 - Acute on chronic diastolic (congestive) heart failure Status: Acute (4) Electrolyte abnormality: Code(s): E87.8 - Other disorders of electrolyte and fluid balance, not elsewhere classified Status: Acute (5) Thrombocytopenia: Code(s): D69.6 - Thrombocytopenia, unspecified Status: Acute (6) Type 2 diabetes mellitus with diabetic neuropathy: Qualifiers: Diabetes mellitus intermodal truck driver insulin use: without intermodal truck driver use Qualified Code(s): E11.40 - Type 2 diabetes mellitus with diabetic neuropathy, unspecified Code(s): E11.40 - Type 2 diabetes mellitus with diabetic neuropathy, unspecified Status: Chronic Plan bilateral lower extremity edema volume overloaded and has significant bilateral lower extremity edema with mild congestive changes on chest x-ray., possible venous stasis edema Venous Doppler shows no DVT He has been on metolazone recently for this swelling without benefit. Consult telecommunication tower technician for evaluation treatment pt is on iv bumex started by cardiology with careful watching of his kidney function Echo shows diastolic heart failure Chronic AFib Rate is controlled resume xarelto and coreg LINDSEY on CKD His renal function has worsened with a BUN and creatinine of 111 and 3.20. He denies concerns for urinary retention Renal ultrasound: The right kidney measures 10.4 x 6.0 x 6.1 cm. The left kidney measures 9.9 x 5.7 x 6.5 cm. The kidneys demonstrate normal parenchymal echogenicity. There is moderate left hydronephrosis. Partially distended urinary bladder, ureteral jets not visualized during the examination. Nephrology and Cardiology have been consulted for their opinion. on dopamine per telecommunication tower technician He has biopsy-proven hypertensive and diabetic nephrosclerosis.? His baseline creatinine is between 2 and 2.5. Patient may have progression of CKD may end up of dialysis. May consider diuretic medications for fluid overload, but up to telecommunication tower technician and solar energy consultant and designer evaluation Suspecting acute blood loss anemia Patient is on Xarelto for AFib Hemoglobin 10.0 August 20, 1999 is 3, 7.0 POA, trending down to 6.9 06/28 Chronic anemia likely secondary to chronic renal failure, but the significant drop in hemoglobin may indicate blood loss Transfuse 1 pack RBC 06/28 pt had venofer pt had Epogen per solar energy consultant and designer Consult GI for evaluation treatment Flank pain post shingles infection Pain is well controlled with gabapentin 300 mg q.h.s. Healing scar over the skin due to shingles infection recently Patient received 7 days valacyclovir, completed course of shingle treatment Stable to active lesions Platelets are a bit low and will be monitored. Potassium will be replaced and monitored as well. Type 2 diabetes initiate sliding scale insulin, Accu-Cheks, and hypoglycemic protocol. Subjective Date/time seen: 07/02/23 15:44 Interval history: Pleasant 83-year-old male with congestive heart failure, pulmonary hypertension, chronic kidney disease, type 2 diabetes mellitus, hypertension, chronic anemia, and other comorbidities who presented to the emergency department via private vehicle for evaluation of swelling. The patient provides the following history. He is a patient of Dr. Medina and he was given a prescription for metolazone for 4 days due to a significant increase in edema which is now up to the flanks. He reports minimal improvement with that and he was given an additional dose of metolazone, reportedly double from what he had been taking. Pt admitted with CHf excerbation, LINDSEY, history of AF fou
[2023-07-02 17:11] LABS: Hematocrit 26.3 % (42.0-52.0); Hemoglobin 7.7 g/dL (14.0-18.0); Mean Corpuscular HGB Conc 29.3 g/dl (32-36); Mean Corpuscular Hemoglobin 24.6 pg (26-34); Platelet Count Result 152 k/mm3 (150-375); Red Blood Count 3.13 M/mm3 (4.6-6.20); Red Cell Distribution Width 22.5 % (11.5-14.5); White Blood Count 5.4 K/mm3 (4.5-10.0)
[2023-07-02 20:23] LABS: Glucose Point of Care 234 mg/dl (65-105)
[2023-07-02] MEDS: GABAPENTIN 300 MG CAPSULE PO (20:28)
[2023-07-02] MEDS: FERROUS SULFATE 325 MG TABLET DR 650 MG PO (20:28)
[2023-07-03] VITALS (22 sets, daily range): BP systolic 104–127; BP diastolic 56–82; PULSE 53–66; RESP 16–20; TEMP 36.1–36.7; O2SAT 93–99
[2023-07-03 06:32] LABS: Basophils Percent Auto 0.8 % (0.2-1.2); Eosinophils Absolute Auto 0.1 K/mm3 (0-0.3); Eosinophils Percent Auto 2.3 % (0-4.4); Hematocrit 25.7 % (42.0-52.0); Hemoglobin 7.5 g/dL (14.0-18.0); Immature Granulocyte Absolute 0.02 K/mm3 (0.00-0.031); Immature Granulocyte Percent A 0.4 % (0-0.5); Lymphocytes Absolute Auto 0.73 K/mm3 (0.9-3.2); Lymphocytes Percent Auto 13.9 % (18.3-44.2); Mean Corpuscular HGB Conc 29.2 g/dl (32-36); Mean Corpuscular Hemoglobin 25.1 pg (26-34); Mean Platelet Volume 10.3 fl (7.4-10.4); Monocytes Absolute Auto 0.6 K/mm3 (0.1-0.6); Monocytes Percent Auto 11.8 % (2.6-8.5); Neutrophils Absolute Auto 3.7 K/mm3 (1.3-6.7); Neutrophils Percent Auto 70.8 % (45.5-73.1); Platelet Count Result 149 k/mm3 (150-375); Red Blood Count 2.99 M/mm3 (4.6-6.20); Red Cell Distribution Width 22.5 % (11.5-14.5); White Blood Count 5.3 K/mm3 (4.5-10.0)
[2023-07-03 06:48] LABS: Alanine Aminotransferase 11 U/L (6-50); Albumin Level 2.8 g/dL (3.5-5.1); Alkaline Phosphatase 119 U/L (38-126); Anion Gap 12 mmol/L (8-16); Aspartate Amino Transferase 21 U/L (17-59); Bilirubin,Total 0.8 mg/dL (0.2-1.3); Blood Urea Nitrogen > 120 mg/dL (9-20); Calcium 7.7 mg/dL (8.4-10.2); Carbon Dioxide 21 mmol/L (22-30); Chloride 95 mmol/L (98-107); Estimated CRCL calculation 19 ml/min; Estimated Glomerular Filt Rate 20; Glucose 176 mg/dL (65-110); Potassium 4.1 mmol/L (3.4-5.0); Sodium 128 mmol/L (137-145)
[2023-07-03 07:34] LABS: Anisocytosis 2+ (NORMAL); Poikilocytosis 2+ (NORMAL)
[2023-07-03 07:35] LABS: Hypochromasia 1+ (NORMAL); Ovalocytes 1+ (NORMAL); Schistocytes 1+ (NORMAL)
[2023-07-03] MEDS: ATORVASTATIN 10 MG TABLET PO (08:29)
[2023-07-03] MEDS: CHOLECALCIFEROL 1,000 UNITS TABLET 2000 UNITS PO (08:29)
[2023-07-03] MEDS: BUMETANIDE INJ 1 MG/4 ML VIAL 2 MG IV PUSH ×2 (08:30→17:25)
[2023-07-03] MEDS: allopurinoL 100 MG TABLET PO (08:30)
[2023-07-03] MEDS: carvediloL 12.5 MG TABLET PO ×2 (08:30→20:23)
[2023-07-03] MEDS: EPOETIN ALFA-EPBX 10,000 UNITS/ML VIAL 10000 UNITS SUB-Q (08:31)
[2023-07-03] MEDS: IRON SUCROSE COMPLEX 200 MG in SODIUM CHLORIDE 0.9% IV 100 ML 220 MG IVPB (08:31)
[2023-07-03] MEDS: MAGNESIUM OXIDE 400 MG TABLET PO (08:32)
[2023-07-03 12:10] LABS: Glucose Point of Care 303 mg/dl (65-105)
[2023-07-03] MEDS: INSULIN ASPART (*BKC) 100 UNITS/ML SUB-Q (12:35)
--- NOTE | 2023-07-03 13:02 | P.PNNP_ITS ---
Progress Note: A&P Assessment and Plan (1) LINDSEY (acute kidney injury): Code(s): N17.9 - Acute kidney failure, unspecified Status: Acute Assessment and Plan: * suspect due to chronic prerenal azotemia worsened by need for chronic diuretic therapy * evaluation to date: * renal ultrasound with left hydronephrosis * urine electrolytes are prerenal * CPK normal * UA unremarkable * no further improvement with dopamine so discontinued * Urology recommendations noted * CT scan results noted.... bilateral kidney masses measuring up to 3.1 cm on the left which may be hemorrhagic cysts or less likely neoplasms. Abdomen MRI without and with contrast is recommended * follow trend of repeat labs and UOP * see discussion below... 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/dialysis (4) Congestive heart failure: Code(s): I50.9 - Heart failure, unspecified Status: Chronic Assessment and Plan: * suspect acute on chronic diastolic heart failure based on history * repeat Echo noted * Cardiology following (5) Essential (primary) hypertension: Code(s): I10 - Essential (primary) hypertension Status: Chronic Assessment and Plan: * reasonable control * follow trend of hemodynamis (6) Iron deficiency anemia: Qualifiers: Iron deficiency anemia type: unspecified iron deficiency Qualified Code(s): D50.9 - Iron deficiency anemia, unspecified Code(s): D50.9 - Iron deficiency anemia, unspecified Status: Acute Assessment and Plan: * partly related to LINDSEY and CKD * on IV venofer and Epogen while hospitalized * PRBC transfusion per protocol * he reports he has antibodies so transfusion may be difficult * follow trend of H/H (7) Type 2 diabetes mellitus with diabetic neuropathy: Qualifiers: Diabetes mellitus technician terminal and repeater insulin use: without technician terminal and repeater use Qualified Code(s): E11.40 - Type 2 diabetes mellitus with diabetic neuropathy, unspecified Code(s): E11.40 - Type 2 diabetes mellitus with diabetic neuropathy, unspecified Status: Chronic Assessment and Plan: * follow accu-cheks * glycemic control per hospitalists Long and extensive discussion (> 20 minutes) with patient and his regarding current situation -- somewhat responsive to IV diuretic therapy but has not made much progress with regard to her lower extremity edema and breathing and his renal function continues to deteriorate with diuretic therapy with worsening azotemia and the concern for possible uremia; we could try escalating diuretic therapy but the concern is that this will still not be able to achieve euvolemia and will just continue to worsen his kidney function; discussed the option of renal replacement therapy/dialysis which would hopefully improve volume status and provide better clearance of the uremic toxins as well as the procedure itself, risks, benefits, pros, cons, along with the necessity of placement of a dialysis catheter -- bernard and his w
--- NOTE | 2023-07-03 13:02 | PM.PNNEP ---
Progress Note: A&P Assessment and Plan (1) LINDSEY (acute kidney injury): Code(s): N17.9 - Acute kidney failure, unspecified Status: Acute Assessment and Plan: suspect due to chronic prerenal azotemia worsened by need for chronic diuretic therapy evaluation to date: renal ultrasound with left hydronephrosis urine electrolytes are prerenal CPK normal UA unremarkable no further improvement with dopamine so discontinued Urology recommendations noted CT scan results noted.... bilateral kidney masses measuring up to 3.1 cm on the left which may be hemorrhagic cysts or less likely neoplasms. Abdomen MRI without and with contrast is recommended follow trend of repeat labs and UOP see discussion below... 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 (4) Congestive heart failure: Code(s): I50.9 - Heart failure, unspecified Status: Chronic Assessment and Plan: suspect acute on chronic diastolic heart failure based on history repeat Echo noted Cardiology following (5) Essential (primary) hypertension: Code(s): I10 - Essential (primary) hypertension Status: Chronic Assessment and Plan: reasonable control follow trend of hemodynamis (6) Iron deficiency anemia: Qualifiers: Iron deficiency anemia type: unspecified iron deficiency Qualified Code(s): D50.9 - Iron deficiency anemia, unspecified Code(s): D50.9 - Iron deficiency anemia, unspecified Status: Acute Assessment and Plan: partly related to LINDSEY and CKD on IV venofer and Epogen while hospitalized PRBC transfusion per protocol he reports he has antibodies so transfusion may be difficult follow trend of H/H (7) Type 2 diabetes mellitus with diabetic neuropathy: Qualifiers: Diabetes mellitus ferry terminal 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 insulin use: without prison use Qualified Code(s): E11.40 - Type 2 diabetes mellitus with diabetic neuropathy, unspecified Code(s): E11.40 - Type 2 diabetes mellitus with diabetic neuropathy, unspecified Status: Chronic Assessment and Plan: follow accu-cheks glycemic control per hospitalists Long and extensive discussion (> 20 minutes) with patient and his regarding current situation -- somewhat responsive to IV diuretic therapy but has not made much progress with regard to her lower extremity edema and breathing and his renal function continues to deteriorate with diuretic therapy with worsening azotemia and the concern for possible uremia; we could try escalating diuretic therapy but the concern is that this will still not be able to achieve euvolemia and will just continue to worsen his kidney function; discussed the option of renal replacement therapy/dialysis which would hopefully improve volume status and provide better clearance of the uremic toxins as well as the procedure itself, risks, benefits, pros, cons, along with the necessity of placement of a dialysis catheter -- he and his will think about it and let me know if they would be willing to consider this treatment option. Will continue to follow. Subjective Date/time seen: 07/03/23 13:02 Interval history: Follow-up for acute kidney injury/acute renal failure on chronic kidney disease. He is making a bit more urine but at the expense of his renal function -- BUN quite elevated along with creatinine; he still has shortness
--- NOTE | 2023-07-03 16:17 | PM.IMPN ---
Progress Note: A&P Assessment and Plan (1) Acute on chronic kidney failure: Code(s): N17.9 - Acute kidney failure, unspecified; N18.9 - Chronic kidney disease, unspecified Status: Acute (2) Chronic anemia: Code(s): D64.9 - Anemia, unspecified Status: Acute (3) Acute on chronic diastolic CHF (congestive heart failure): Code(s): I50.33 - Acute on chronic diastolic (congestive) heart failure Status: Acute (4) Electrolyte abnormality: Code(s): E87.8 - Other disorders of electrolyte and fluid balance, not elsewhere classified Status: Acute (5) Thrombocytopenia: Code(s): D69.6 - Thrombocytopenia, unspecified Status: Acute (6) Type 2 diabetes mellitus with diabetic neuropathy: Qualifiers: Diabetes mellitus long term care administrator insulin use: without long term care administrator use Qualified Code(s): E11.40 - Type 2 diabetes mellitus with diabetic neuropathy, unspecified Code(s): E11.40 - Type 2 diabetes mellitus with diabetic neuropathy, unspecified Status: Chronic Plan Bilateral lower extremity edema volume overloaded and has significant bilateral lower extremity edema with mild congestive changes on chest x-ray., possible venous stasis edema Venous Doppler shows no DVT He has been on metolazone recently for this swelling without benefit. Consult large sheetfed press operator for evaluation treatment pt is on iv bumex started by cardiology with careful watching of his kidney function Echo shows diastolic heart failure Chronic AFib Rate is controlled resume xarelto and coreg LINDSEY on CKD His renal function has worsened with a BUN and creatinine of 111 and 3.20. He denies concerns for urinary retention Renal ultrasound: The right kidney measures 10.4 x 6.0 x 6.1 cm. The left kidney measures 9.9 x 5.7 x 6.5 cm. The kidneys demonstrate normal parenchymal echogenicity. There is moderate left hydronephrosis. Partially distended urinary bladder, ureteral jets not visualized during the examination. Nephrology and Cardiology have been consulted for their opinion. on dopamine per large sheetfed press operator He has biopsy-proven hypertensive and diabetic nephrosclerosis.? His baseline creatinine is between 2 and 2.5. Patient may have progression of CKD may end up of dialysis. May consider diuretic medications for fluid overload, but up to large sheetfed press operator and filbert grower evaluation Suspecting acute blood loss anemia Patient is on Xarelto for AFib Hemoglobin 10.0 August 20, 1999 is 3, 7.0 POA, trending down to 6.9 06/28 Chronic anemia likely secondary to chronic renal failure, but the significant drop in hemoglobin may indicate blood loss Transfuse 1 pack RBC 06/28 pt had venofer pt had Epogen per filbert grower As per GI, pt had egd and colonoscopy, hb is stable no occult bleeding no need for any intervention Flank pain post shingles infection Pain is well controlled with gabapentin 300 mg q.h.s. Healing scar over the skin due to shingles infection recently Patient received 7 days valacyclovir, completed course of shingle treatment Stable to active lesions Platelets are a bit low and will be monitored. Potassium will be replaced and monitored as well. Type 2 diabetes initiate sliding scale insulin, Accu-Cheks, and hypoglycemic protocol. Subjective Date/time seen: 07/03/23 16:17 Interval history: Pleasant 83-year-old male with congestive heart failure, pulmonary hypertension, chronic kidney disease, type 2 diabetes mellitus, hypertension, chronic anemia, and other comorbidities who presented to the emergency department via private vehicle for evaluation of swelling. The patient provides the following history. He is a patient of Dr. Medina and he was given a prescription for metolazone for 4 days due to a significant increase in edema which is now up to the flanks. He reports minimal improvement with that and he was given an additional dose of metolazone, reportedly double from what he had been zahraa
--- NOTE | 2023-07-03 17:28 | PM.CNGS ---
Assessment and Plan Assessment and plan (1) Acute on chronic kidney failure: Qualifiers: Acute renal failure type: unspecified Chronic kidney disease stage: stage 4 (severe) Qualified Code(s): N17.9 - Acute kidney failure, unspecified; N18.4 - Chronic kidney disease, stage 4 (severe) Code(s): N17.9 - Acute kidney failure, unspecified; N18.9 - Chronic kidney disease, unspecified Status: Chronic Assessment and Plan: Plan to proceed with placement of tunneled central venous catheter under fluoroscopy in the operating room tomorrow afternoon. (2) Hypertension associated with diabetes: Code(s): E11.59 - Type 2 diabetes mellitus with other circulatory complications; I15.2 - Hypertension secondary to endocrine disorders Status: Chronic (3) Congestive heart failure: Qualifiers: Heart failure type: diastolic Heart failure chronicity: acute on chronic Qualified Code(s): I50.33 - Acute on chronic diastolic (congestive) heart failure Code(s): I50.9 - Heart failure, unspecified Status: Chronic (4) Diabetes mellitus with proteinuria: Code(s): E11.29 - Type 2 diabetes mellitus with other diabetic kidney complication; R80.9 - Proteinuria, unspecified Status: Chronic (5) Anemia of chronic disease: Code(s): D63.8 - Anemia in other chronic diseases classified elsewhere Status: Chronic History of Present Illness Consult details Consult date: 07/03/23 Requesting physician: Brittany Johnson MD Narrative: Asked to see patient for placement tunneled central venous catheter for hemodialysis [facility] Past Medical History Medical History Atrial fibrillation B12 deficiency anemia Benign prostatic hyperplasia Chronic anemia Chronic anticoagulation Chronic kidney disease, stage 3b Congestive heart failure Echocardiogram October 2020: Indeterminate diastolic function, EF 65-70%, mild right ventricular enlargement, mildly increased left ventricular wall thickness, mild left atrial enlargement, mild mitral valve regurgitation, mild tricuspid valve regurgitation, moderate pulmonary hypertension with RVSP 59, 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 Essential (primary) hypertension Hyperlipidemia associated with type 2 diabetes mellitus Hypertension associated with diabetes Iron deficiency anemia Mixed hyperlipidemia Pulmonary hypertension Umbilical hernia Surgical History Surgical History Normal colonoscopy (~2007) Status post bilateral knee replacements Status post cataract extraction of both eyes with insertion of intraocular lens Family History Family History Father Cerebrovascular accident Mother Hypertension Sibling Hypertension Kidney disease, chronic, end stage on dialysis Social History Social History Social History: Surrogate medical decision maker: Kathy Yanez, spouse. Code status: Full code. Smoking packs per day: 0.5 Smoking cigarettes per day: 10.0 Years smoked: 3 Smoking pack-years: 1.50 Smoking status: Never smoker Tobacco type: cigarettes Second hand tobacco smoke exposure: No Alcohol intake: never Substance use: never Substance use type: does not use Lack of Transportation: No Lack of Food: Never True Current Housing: I Have Housing Concerned About Future Housing: No Difficulty Paying Gas/Electric Bills: No Difficulty Paying for Meds: No Currently Unemployed: No Education: Associate Degree Difficulty w/ Childcare or Family Care: No Living arrangements: with family Additional living arrangements comments: Lives with spouse of nearly 60 years. They have a son and daughter. Occupation/Education: retired Additional occupation/education c
[2023-07-03 18:28] LABS: Glucose Point of Care 239 mg/dl (65-105)
[2023-07-03] MEDS: GABAPENTIN 300 MG CAPSULE PO (20:23)
[2023-07-03 20:35] LABS: Glucose Point of Care 191 mg/dl (65-105)
[2023-07-04] VITALS (22 sets, daily range): BP systolic 89–132; BP diastolic 47–81; PULSE 49–69; RESP 12–20; TEMP 36.2–36.8; O2SAT 94–100
[2023-07-04 05:24] LABS: Hematocrit 26.5 % (42.0-52.0); Hemoglobin 7.8 g/dL (14.0-18.0); Mean Corpuscular HGB Conc 29.4 g/dl (32-36); Mean Corpuscular Hemoglobin 25.3 pg (26-34); Mean Platelet Volume 10.1 fl (7.4-10.4); Platelet Count Result 149 k/mm3 (150-375); Red Blood Count 3.08 M/mm3 (4.6-6.20); Red Cell Distribution Width 22.8 % (11.5-14.5); White Blood Count 5.2 K/mm3 (4.5-10.0)
[2023-07-04 05:41] LABS: Anion Gap 9 mmol/L (8-16); Calcium 7.8 mg/dL (8.4-10.2); Carbon Dioxide 26 mmol/L (22-30); Chloride 96 mmol/L (98-107); Estimated CRCL calculation 19 ml/min; Estimated Glomerular Filt Rate 20; Glucose 160 mg/dL (65-110); Sodium 131 mmol/L (137-145)
[2023-07-04 05:58] LABS: Blood Urea Nitrogen 129 mg/dL (9-20)
[2023-07-04 07:16] LABS: Hepatitis B Surface Antigen Negative (Negative)
[2023-07-04 07:33] LABS: Hepatitis B Surface Anti Res Negative
[2023-07-04 08:00] LABS: Glucose Point of Care 162 mg/dl (65-105)
[2023-07-04] MEDS: carvediloL 12.5 MG TABLET PO ×2 (09:26→20:34)
--- NOTE | 2023-07-04 10:01 | P.PNNP_ITS ---
Progress Note: A&P Assessment and Plan (1) LINDSEY (acute kidney injury): Code(s): N17.9 - Acute kidney failure, unspecified Status: Acute Assessment and Plan: * suspect due to chronic prerenal azotemia worsened by need for chronic diuretic therapy * evaluation to date: * renal ultrasound with left hydronephrosis * urine electrolytes are prerenal * CPK normal * UA unremarkable * no further improvement with dopamine so discontinued * Urology recommendations noted * CT scan results noted.... bilateral kidney masses measuring up to 3.1 cm on the left which may be hemorrhagic cysts or less likely neoplasms. Abdomen MRI without and with contrast is recommended * plan for initiation of dialysis once HD catheter in place (2) Stage 3b chronic kidney disease: Code(s): N18.32 - Chronic kidney disease, stage 3b Status: Chronic Assessment and Plan: * baseline creatinine runs ~ 2.0 - 2.5mg/dl * due to biopsy proven hypertensive and diabetic nephrosclerosis * his underlying CHF and need for diuretic therapy are playing a role as well (3) Edema: Code(s): R60.9 - Edema, unspecified Status: Acute Assessment and Plan: * worsening with subsequent admission * off dopamine * IV diuretics resumed * follow clinical exam, daily weights, and I/Os (4) Congestive heart failure: Code(s): I50.9 - Heart failure, unspecified Status: Chronic Assessment and Plan: * suspect acute on chronic diastolic heart failure based on history * repeat Echo noted * Cardiology following (5) Essential (primary) hypertension: Code(s): I10 - Essential (primary) hypertension Status: Chronic Assessment and Plan: * reasonable control * follow trend of hemodynamis (6) Iron deficiency anemia: Qualifiers: Iron deficiency anemia type: unspecified iron deficiency Qualified Code(s): D50.9 - Iron deficiency anemia, unspecified Code(s): D50.9 - Iron deficiency anemia, unspecified Status: Acute Assessment and Plan: * partly related to LINDSEY and CKD * on IV venofer and Epogen while hospitalized * PRBC transfusion per protocol * he reports he has antibodies so transfusion may be difficult * follow trend of H/H (7) Type 2 diabetes mellitus with diabetic neuropathy: Qualifiers: Diabetes mellitus buttermaker continuous churn insulin use: without senior living use Qualified Code(s): E11.40 - Type 2 diabetes mellitus with diabetic neuropathy, unspecified Code(s): E11.40 - Type 2 diabetes mellitus with diabetic neuropathy, unspecified Status: Chronic Assessment and Plan: * follow accu-cheks * glycemic control per hospitalists Will continue to follow. Subjective Date/time seen: 07/04/23 10:01 Interval history: Follow-up for acute kidney injury/acute renal failure on chronic kidney disease. Patient was agreeable to starting dialysis after my discussion with him yesterday; Surgery consulted for placement of tunneled HD catheter and is tentatively scheduled for later this afternoon; no apparent distress; better urine output noted but swelling/edema in LEs persists; no issues overnight or earlier this morning. Exam Narrative: General: WD/WN male in NAD Heart: normal S1 and S2; IRRR, no rub Lungs: clear anteriorly; few crackles at bases Abdomen: soft, nontender, nondistended, positive bowel sounds Extremities: no cyanosis or clubbing; 2+ edema Skin: no tears or bruising
--- NOTE | 2023-07-04 10:01 | PM.PNNEP ---
Progress Note: A&P Assessment and Plan (1) LINDSEY (acute kidney injury): Code(s): N17.9 - Acute kidney failure, unspecified Status: Acute Assessment and Plan: suspect due to chronic prerenal azotemia worsened by need for chronic diuretic therapy evaluation to date: renal ultrasound with left hydronephrosis urine electrolytes are prerenal CPK normal UA unremarkable no further improvement with dopamine so discontinued Urology recommendations noted CT scan results noted.... bilateral kidney masses measuring up to 3.1 cm on the left which may be hemorrhagic cysts or less likely neoplasms. Abdomen MRI without and with contrast is recommended plan for initiation of dialysis once HD catheter in place (2) Stage 3b chronic kidney disease: Code(s): N18.32 - Chronic kidney disease, stage 3b Status: Chronic Assessment and Plan: baseline creatinine runs ~ 2.0 - 2.5mg/dl due to biopsy proven hypertensive and diabetic nephrosclerosis his underlying CHF and need for diuretic therapy are playing a role as well (3) Edema: Code(s): R60.9 - Edema, unspecified Status: Acute Assessment and Plan: worsening with subsequent admission off dopamine IV diuretics resumed follow clinical exam, daily weights, and I/Os (4) Congestive heart failure: Code(s): I50.9 - Heart failure, unspecified Status: Chronic Assessment and Plan: suspect acute on chronic diastolic heart failure based on history repeat Echo noted Cardiology following (5) Essential (primary) hypertension: Code(s): I10 - Essential (primary) hypertension Status: Chronic Assessment and Plan: reasonable control follow trend of hemodynamis (6) Iron deficiency anemia: Qualifiers: Iron deficiency anemia type: unspecified iron deficiency Qualified Code(s): D50.9 - Iron deficiency anemia, unspecified Code(s): D50.9 - Iron deficiency anemia, unspecified Status: Acute Assessment and Plan: partly related to LINDSEY and CKD on IV venofer and Epogen while hospitalized PRBC transfusion per protocol he reports he has antibodies so transfusion may be difficult follow trend of H/H (7) Type 2 diabetes mellitus with diabetic neuropathy: Qualifiers: 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 Subjective Date/time seen: 07/04/23 10:01 Interval history: Follow-up for acute kidney injury/acute renal failure on chronic kidney disease. Patient was agreeable to starting dialysis after my discussion with him yesterday; Surgery consulted for placement of tunneled HD catheter and is tentatively scheduled for later this afternoon; no apparent distress; better urine output noted but swelling/edema in LEs persists; no issues overnight or earlier this morning. Exam Narrative: General: WD/WN male in NAD Heart: normal S1 and S2; IRRR, no rub Lungs: clear anteriorly; few crackles at bases Abdomen: soft, nontender, nondistended, positive bowel sounds Extremities: no cyanosis or clubbing; 2+ edema Skin: no tears or bruising noted Objective Data Vital Signs Vital Signs: Vital Signs Temp Pulse Resp BP Pulse Ox O2 Del Method 07/04/23 09:26 59 L 07/04/23 07:39 97.8 F 55 L 14 111/57 L 97 07/04/23 06:00 59 L 07/04/23 04:00 97.5 F L 60 20 107/47 L 94 07/04/23 04:00 69 07/04/23 04:00 53 L 16 98 Room Air 07/04/23 02:00 53 L 07/04/23 00:00 54 L 07/03/23 23:46 66 16 98 Room Air 07/03/23 22:40 97.8 F 66 16 109/66 98 11
--- NOTE | 2023-07-04 12:27 | PM.IMPN ---
Progress Note: A&P Assessment and Plan (1) Acute on chronic kidney failure: Code(s): N17.9 - Acute kidney failure, unspecified; N18.9 - Chronic kidney disease, unspecified Status: Acute (2) Chronic anemia: Code(s): D64.9 - Anemia, unspecified Status: Acute (3) Acute on chronic diastolic CHF (congestive heart failure): Code(s): I50.33 - Acute on chronic diastolic (congestive) heart failure Status: Acute (4) Electrolyte abnormality: Code(s): E87.8 - Other disorders of electrolyte and fluid balance, not elsewhere classified Status: Acute (5) Thrombocytopenia: Code(s): D69.6 - Thrombocytopenia, unspecified Status: Acute (6) Type 2 diabetes mellitus with diabetic neuropathy: Qualifiers: Diabetes mellitus 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 Appreciate cardiology recommendations Pt is on iv bumex started by cardiology with careful watching of his kidney function Echo shows diastolic heart failure Progression of CKD may end with dialysis. Chronic AFib Rate is controlled resume xarelto and coreg xarelto on hold for procedure, Pt will be going for placement of tunneled central venous catheter?today LINDSEY on CKD His renal function has worsened with a BUN and creatinine of 111 and 3.20. He denies concerns for urinary retention Renal ultrasound: The right kidney measures 10.4 x 6.0 x 6.1 cm. The left kidney measures 9.9 x 5.7 x 6.5 cm. The kidneys demonstrate normal parenchymal echogenicity. There is moderate left hydronephrosis. Partially distended urinary bladder, ureteral jets not visualized during the examination. Nephrology and Cardiology have been consulted for their opinion. He has biopsy-proven hypertensive and diabetic nephrosclerosis.? His baseline creatinine is between 2 and 2.5. Patient may have progression of CKD may end up of dialysis. Pt will be going for placement of tunneled central venous catheter?today Pt will need to start temporary dialysis in hospital Suspecting acute blood loss anemia Patient is on Xarelto for AFib onhold for procedure Hemoglobin 10.0 August 20, 1999 is 3, 7.0 POA, trending down to 6.9 06/28 Chronic anemia likely secondary to chronic renal failure, but the significant drop in hemoglobin may indicate blood loss Transfuse 1 pack RBC 06/28 pt had venofer pt had Epogen per candy spreader helper As per GI, pt had egd and colonoscopy recently, hb is stable no occult bleeding no need for any intervention Flank pain post shingles infection Pain is well controlled with gabapentin 300 mg q.h.s. Healing scar over the skin due to shingles infection recently Patient received 7 days valacyclovir, completed course of shingle treatment Stable to active lesions Platelets are a bit low and will be monitored. Type 2 diabetes initiate sliding scale insulin, Accu-Cheks, and hypoglycemic protocol. Subjective Date/time seen: 07/04/23 12:27 Interval history: Pleasant 83-year-old male with congestive heart failure, pulmonary hypertension, chronic kidney disease, type 2 diabetes mellitus, hypertension, chronic anemia, and other comorbidities who presented to the emergency department via private vehicle for evaluation of swelling. The patient provides the following history. He is a patient of Dr. Medina and he was given a prescription for metolazone for 4 days due to a significant increase in edema which is now up to the flanks. He reports minimal improve
[2023-07-04 12:44] LABS: Glucose Point of Care 161 mg/dl (65-105)
--- NOTE | 2023-07-04 13:01 | PCNWS ---
Weekly nutritional screen. Patient is tolerating current diet with adequate intake, 100% intakes on previous diet. No weight loss reported. No nutritional needs at this time.
--- NOTE | 2023-07-04 13:07 | WPDANESEPPF ---
Anes - Initial Pre Proc Eval Procedure: Operation Date: 07/04/23 13:30 Proposed Procedures p Insertion Tunneled Duraflow Central Venous Catheter Under Fluoroscopy - Mat Green MD Date/Time: 07/04/23 13:07 Surgeon: Taz Jones MD Pre Op Diagnosis: Pulmonary Edema/CHF Patient Data Age: 83 Gender: M Height: 1.78 m Weight: 117.8 kg Last Vital Signs Temp 36.7 C 07/04/23 12:30 Pulse 56 L 07/04/23 12:30 Resp 18 07/04/23 12:30 BP 116/64 07/04/23 12:30 Pulse Ox 97 07/04/23 12:30 O2 Del Method Room Air 07/04/23 12:30 Allergies Allergy/AdvReac Type Severity Reaction Status Date / Time No Known Allergies Allergy Verified 07/04/23 12:39 Home Medications Medication Instructions Recorded Confirmed Type blood pressure monitor #1 ea 01/10/20 06/27/23 Rx blood sugar diagnostic (Blood #100 ea 01/10/20 06/27/23 Rx Glucose Test strips) blood-glucose meter #1 ea 01/10/20 06/27/23 Rx lancets #200 ea 01/10/20 06/27/23 Rx liraglutide 0.6 mg/0.1 mL (18 mg/3 1.2 mg (0.2 mL) subcut DAILY #18 mL 10/04/21 06/27/23 Rx mL) subcutaneous pen injector (Victoza 2-Vidal) potassium chloride 20 mEq 40 meq PO DAILY #180 tabs 02/18/22 06/27/23 Rx tablet,extended release pen needle, diabetic 31 gauge x #100 ea 08/23/22 06/27/23 Rx 5/16 (BD Ultra-Fine Short Pen Needle) magnesium oxide 400 mg (241.3 mg 400 mg PO DAILY #90 tabs 12/03/22 06/27/23 Rx magnesium) tablet cholecalciferol (vitamin D3) 50 50 mcg PO DAILY 12/26/22 06/27/23 History mcg (2,000 unit) capsule allopurinol 100 mg tablet 100 mg PO DAILY #90 tabs 01/30/23 06/27/23 Rx rivaroxaban 15 mg tablet (Xarelto) 15 mg PO DAILY@1700 #90 tabs 02/27/23 06/27/23 Rx atorvastatin 10 mg tablet 10 mg PO DAILY #90 tabs 03/14/23 06/27/23 Rx albuterol sulfate 90 mcg/actuation 2 puff inhalation Q6HRT PRN 04/23/23 06/27/23 Rx aerosol inhaler (Proventil HFA) Shortness Of Breath #6.7 grams calcitriol 0.25 mcg capsule 0.25 mcg PO 4XW #16 caps 05/01/23 06/27/23 Rx tramadol 50 mg tablet 50 mg PO Q8H PRN pain #90 tabs 06/10/23 06/27/23 Rx gabapentin 300 mg capsule 300 mg PO QHS #30 caps 06/18/23 06/27/23 Rx bumetanide 1 mg tablet 1 mg PO BID 06/27/23 06/27/23 History carvedilol 12.5 mg tablet 12.5 mg PO BID 06/27/23 06/27/23 History ferrous sulfate 325 mg (65 mg 650 mg PO .EVERY OTHER DAY 06/27/23 06/27/23 History iron) tablet metolazone 2.5 mg tablet 2.5 mg PO DAILY 06/27/23 06/27/23 History Laboratory Tests 07/03/23 07/03/23 07/03/23 18:06 18:27 20:18 WBC RBC Hgb Hct MCV MCH MCHC RDW Plt Count MPV Sodium Potassium Chloride Carbon Dioxide Anion Gap BUN Creatinine Estim Creat Clear Calc Estimated GFR Glucose POC Capillary Glucose 239 H mg/dl 191 H mg/dl (65-105) (65-105) Calcium Hep Bs Antigen Hep Bs Antibody Hep B Core Total Ab Blood Type O Positive Antibody Screen Positive Antibody Identification Anti-E Antigen Identification Cancelled MAYRA, IgG Interpret 1+ MAYRA, Poly Interpret 1+ MAYRA, Complement Interp Negative 07/04/23 07/04/23 07/04/23 04:44 04:48 07:44 WBC 5.2 K/mm3 (4.5-10.0) RBC 3.08 L M/mm3 (4.6-6.20) Hgb 7.8 L g/dL (14.0-18.0) Hct 26.5 L % (42.0-52.0) MCV 86.0 fl (80-100) MCH 25.3 L pg (26-34) MCHC 29.4 L g/dl (32-36) RDW 22.8 H % (11.5-14.5) Plt Count 149 L k/mm3 (150-375) MPV 10.1 fl (7.4-10.4) Sodium 131 L mmol/L (137-145) Potassium 4.0 mmol/L (3.4-5.0) Chloride 96 L mmol/L
--- NOTE | 2023-07-04 13:33 | WPDHPUPDATE1 ---
History and Physical Update Update Date/Time: 07/04/23 13:33 History and Physical has been reviewed, including an updated exam of the patient. There are NO changes in the patient's condition. Risks, benefits, and alternatives have been discussed and questions answered. Patient agrees to proceed with procedure.
[2023-07-04] MEDS: ceFAZolin 2 GM/D5W 50 ML 2 GM/50 ML BAG IVPB (13:44)
[2023-07-04] MEDS: LIDO 1%/EPINEPHRINE 1:100,000 50 ML VIAL INFILTRATE (14:23)
[2023-07-04] MEDS: HEPARIN SODIUM, PORCINE 10,000 UNITS/10 ML VIAL 10000 UNITS IV PUSH (14:24)
--- NOTE | 2023-07-04 14:31 | PCPTNOTE ---
Attempted therapy however nursing states patient is out of room for dialysis.
--- NOTE | 2023-07-04 15:10 | P.OP_ITS ---
Procedure Note - Detailed Date of Procedure 07/04/23 Pre-op Diagnosis Acute on chronic renal failure, inadequate venous access for chemotherapy Post-op Diagnosis Same Procedure Performed Placement of right internal jugular tunneled dura flow catheter using ultrasound and with fluoroscopic guidance Surgeon Mat Green MD Sanitation Superintendent [place] GANT Anesthesia MAC (G IV S) Indications Patient has uremia and acute on chronic renal failure. His BUN is over 100. I was requested to place a tunneled central venous catheter for the patient to receive dialysis. Findings None significant Description of Procedure Patient was taken to surgery and placed in a supine position. Anesthetic was given and the right neck and right upper chest were prepped and draped. Ultrasound was used on the lower right neck. The internal jugular vein was visualized and local anesthetic was infiltrated into the skin above it. A cannulating needle was then used and the vein was cannulated. This was seen under ultrasound as well. A guidewire was passed through the needle and into the superior vena cava and actually on down into the inferior vena cava. This was demonstrated on fluoroscopy. I then used fluoroscopy to map the placement of the dura flow catheter. I marked couple of counter incisions on the right upper chest. Local was infiltrated into each of these counter incisions and into the neck incision where the wire was exiting. Incisions were made into the 2 counter incisions and more incision was made around the wire in the right lower neck. The catheter was then tunneled retrograde through the 2 chest incisions and then finally out the neck incision made next to the guidewire. The tunneler was removed. We then passed serial dilators over the guidewire under fluoroscopy. The last dilator was associated with the sleeve and was also passed over the wire with fluoroscopy. I then removed the introducer and guidewire. The Port-A-Cath was passed through the sheath and into the distal SVC. We then removed the sheath. Fluoroscopy confirmed that the into the catheter was in the distal SVC right atrial junction. I then flushed each of the lines for the dura flow catheter with dilute heparin. There was excellent flow from each of the lumens. Final flush was then administered through each lumen. Caps were placed on the end of each lumen. I then used 4-0 Vicryl to close the subcuticular skin snug up against the exit site of the dura flow catheter. Subcuticular 4-0 Vicryl sutures were also used to close the other 2 counter incisions-the 1 in the upper chest as well as the 1 in the lower right neck. Pressure was held over both of these and oozing of blood stopped. The neck and upper chest incisions were dressed with Exofin surgical adhesive. The dura flow catheter was sutured to the skin after infiltrating additional local. Two sutures of 3-0 nylon were used to secure it to the skin. Gauze was placed over the exit site of the dura flow catheter and a Tegaderm dressing was placed to keep the gauze in position. Patient was then awakened and taken to recovery in good condition. Sponge and needle counts were correct x2. Implants 32 cm dura flow tunneled central venous catheter Estimated Blood Loss -20 Urine Output 200 Drains No Packing No Pathology None sent Complications No immediate complications Condition Stable Disposition PACU [facility] Billing Surgery - Charge Forward: Surgery Billing (Ultrasound guided placement right internal jugular tunneled duraflow catheter using fluoroscopy)
[2023-07-04] MEDS: SODIUM CHLORIDE 0.9% IV 500 ML 30 ML IV CONT (15:12)
[2023-07-04 15:40] LABS: Glucose Point of Care 155 mg/dl (65-105)
[2023-07-04] MEDS: BUMETANIDE INJ 1 MG/4 ML VIAL 2 MG IV PUSH (17:30)
[2023-07-04 20:29] LABS: Glucose Point of Care 293 mg/dl (65-105)
[2023-07-04] MEDS: FERROUS SULFATE 325 MG TABLET DR 650 MG PO (20:34)
[2023-07-04] MEDS: INSULIN ASPART (*BKC) 100 UNITS/ML SUB-Q (20:34)
[2023-07-04] MEDS: GABAPENTIN 300 MG CAPSULE PO (20:34)
[2023-07-05] VITALS (30 sets, daily range): BP systolic 107–132; BP diastolic 49–71; PULSE 42–74; RESP 16–20; TEMP 36.3–37.1; O2SAT 96–97
[2023-07-05 07:46] LABS: Glucose Point of Care 190 mg/dl (65-105)
[2023-07-05 07:58] LABS: Hematocrit 27.7 % (42.0-52.0); Hemoglobin 8.1 g/dL (14.0-18.0); Mean Corpuscular HGB Conc 29.2 g/dl (32-36); Mean Corpuscular Hemoglobin 25.3 pg (26-34); Mean Corpuscular Volume 86.6 fl (80-100); Mean Platelet Volume 10.1 fl (7.4-10.4); Platelet Count Result 164 k/mm3 (150-375); Red Cell Distribution Width 23.7 % (11.5-14.5); White Blood Count 5.6 K/mm3 (4.5-10.0)
[2023-07-05 08:23] LABS: Anion Gap 11 mmol/L (8-16); Calcium 7.9 mg/dL (8.4-10.2); Carbon Dioxide 25 mmol/L (22-30); Chloride 96 mmol/L (98-107); Estimated CRCL calculation 19 ml/min; Estimated Glomerular Filt Rate 20; Glucose 183 mg/dL (65-110); Sodium 132 mmol/L (137-145)
--- NOTE | 2023-07-05 08:39 | PM.IMPN ---
Progress Note: A&P Assessment and Plan (1) Acute on chronic kidney failure: Code(s): N17.9 - Acute kidney failure, unspecified; N18.9 - Chronic kidney disease, unspecified Status: Acute Assessment and Plan: likely d/t hypervolemia from volume overload with significant bilateral lower extremity edema with mild congestive changes on chest x-ray, possible venous stasis edema Venous Doppler shows no DVT He has been on metolazone recently for this swelling without benefit. Appreciate cardiology recommendations Pt is on iv bumex started by cardiology with careful watching of his kidney function Echo shows diastolic heart failure 07/05: HD to start today (2) Chronic anemia: Code(s): D64.9 - Anemia, unspecified Status: Acute Assessment and Plan: Suspecting acute blood loss anemia Patient is on Xarelto for AFib onhold for procedure Hemoglobin 10.0 August 20, 1999 is 3, 7.0 POA, trending down to 6.9 06/28 Chronic anemia likely secondary to chronic renal failure, but the significant drop in hemoglobin may indicate blood loss Transfuse 1 pack RBC 06/28 pt had venofer 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 As per GI, pt had egd and colonoscopy recently, hb is stable no occult bleeding no need for any intervention (3) Acute on chronic diastolic CHF (congestive heart failure): Code(s): I50.33 - Acute on chronic diastolic (congestive) heart failure Status: Acute Assessment and Plan: see above (4) Electrolyte abnormality: Code(s): E87.8 - Other disorders of electrolyte and fluid balance, not elsewhere classified Status: Acute (5) Thrombocytopenia: Code(s): D69.6 - Thrombocytopenia, unspecified Status: Acute (6) Type 2 diabetes mellitus with diabetic neuropathy: Qualifiers: Diabetes mellitus extermination inspector insulin use: without extermination inspector use Qualified Code(s): E11.40 - Type 2 diabetes mellitus with diabetic neuropathy, unspecified Code(s): E11.40 - Type 2 diabetes mellitus with diabetic neuropathy, unspecified Status: Chronic Assessment and Plan: Accu-Cheks and sliding scale insulin Blood glucose reviewed 07/05 (7) Shingles: Code(s): B02.9 - Zoster without complications Status: Acute Assessment and Plan: Flank pain post shingles infection Pain is well controlled with gabapentin 300 mg q.h.s. Healing scar over the skin due to shingles infection recently Patient received 7 days valacyclovir, completed course of shingle treatment Stable to active lesions Plan DVT prophylaxis with Xarelto GI prophylaxis not indicated Code status full code Subjective Date/time seen: 07/05/23 08:39 Interval history: 83-year-old male with congestive heart failure, pulmonary hypertension, chronic kidney disease, type 2 diabetes mellitus, hypertension, chronic anemia, and other comorbidities who presented to the emergency department via private vehicle for evaluation of swelling and is being treated for CHF exacerbation, LINDSEY, anemia. 07/04: placement of tunneled central venous catheter, plan to start temporary dialysis in hospital No overnight events noted. No chest pain or shortness of breath. No nausea, vomiting or diarrhea. No fevers or chills. Plan for HD today. Review of Systems Review of Systems: 12 point review of systems was assessed and was negative except as noted in the HPI Exam Narrative: General: No acute distress, alert and oriented per baseline HEENT: Atraumatic, normocephalic, mucous membranes moist CV: Regular rate and rhythm, S1, S2 Lungs: Clear to auscultation bilaterally, no rales or crackles noted, no wheezes, good air entry Abdomen: Soft, nontender, nondistended Extremities: Normal to inspection Skin: No rashes noted, no lesions or wounds seen Psych: Euthymic, normal affect Objective Data Vital Signs Vital Signs: Vital Signs - 24 hr 07/04/23 09:26
[2023-07-05] MEDS: BUMETANIDE INJ 1 MG/4 ML VIAL 2 MG IV PUSH ×2 (09:45→18:28)
[2023-07-05] MEDS: carvediloL 12.5 MG TABLET PO ×2 (09:46→21:33)
[2023-07-05] MEDS: CHOLECALCIFEROL 1,000 UNITS TABLET 2000 UNITS PO (09:46)
[2023-07-05] MEDS: MAGNESIUM OXIDE 400 MG TABLET PO (09:46)
[2023-07-05] MEDS: allopurinoL 100 MG TABLET PO (09:46)
[2023-07-05] MEDS: ATORVASTATIN 10 MG TABLET PO (09:46)
[2023-07-05 10:02] LABS: Blood Urea Nitrogen 130 mg/dL (9-20)
[2023-07-05 11:41] LABS: Alanine Aminotransferase 11 U/L (6-50); Albumin Level 2.8 g/dL (3.5-5.1); Alkaline Phosphatase 94 U/L (38-126); Aspartate Amino Transferase 24 U/L (17-59); Bilirubin,Total 0.8 mg/dL (0.2-1.3)
[2023-07-05 11:42] LABS: Glucose Point of Care 277 mg/dl (65-105)
[2023-07-05] MEDS: INSULIN ASPART (*BKC) 100 UNITS/ML SUB-Q ×2 (11:57→21:34)
--- NOTE | 2023-07-05 12:52 | PM.PNCARD ---
Progress Note: A&P Assessment and Plan (1) Atrial fibrillation: Code(s): I48.91 - Unspecified atrial fibrillation Status: Acute Assessment and Plan: Chronic atrial fibrillation heart rate generally controlled with carvedilol 12.5 mg twice daily. Would not recommend resumption of Xarelto given stage 5 kidney disease on hemodialysis. Discussed at length patient and family. Recommend initiation of Eliquis 2.5 mg twice daily starting this evening. Monitor closely for bleeding. Follow H&H. Patient is complicated with multiple comorbidities. (2) Congestive heart failure: Qualifiers: Heart failure type: diastolic Heart failure chronicity: acute on chronic Qualified Code(s): I50.33 - Acute on chronic diastolic (congestive) heart failure Code(s): I50.9 - Heart failure, unspecified Status: Chronic Assessment and Plan: Acute on chronic diastolic heart failure. Continue IV Bumex 2 mg twice daily. However, now that he is being hemodialysis I would defer further recommendations to Nephrology based on his response to HD and tolerated ultrafiltrate removal. While he remains volume overloaded he is reasonably stable at this time. (3) Acute on chronic kidney failure: Qualifiers: Acute renal failure type: unspecified Chronic kidney disease stage: stage 4 (severe) Qualified Code(s): N17.9 - Acute kidney failure, unspecified; N18.4 - Chronic kidney disease, stage 4 (severe) Code(s): N17.9 - Acute kidney failure, unspecified; N18.9 - Chronic kidney disease, unspecified Status: Chronic Assessment and Plan: Worsening renal failure, concern about uremia given significant BUN elevation. Creatinine 3.6 today but with BUN of 130. Concern for uremia given significant BUN elevation. He is now status post tunneled hemodialysis catheter accessed with plans for 1st HD session this afternoon. Management per Nephrology. Volume management will be per hemodialysis. Will defer diuretic management from here to Nephrology depending upon his response to hemodialysis and degree of tolerated ultrafiltrate removal. However, at this time he remains on Bumex 2 mg IV q.12 hours. (4) Hypertension associated with diabetes: Code(s): E11.59 - Type 2 diabetes mellitus with other circulatory complications; I15.2 - Hypertension secondary to endocrine disorders Status: Chronic Assessment and Plan: For now, continue carvedilol 12.5 mg twice daily. Transient hypotension documented overnight without recurrence. Monitor BP post hemodialysis. (5) Anemia: Code(s): D64.9 - Anemia, unspecified Status: Acute Assessment and Plan: H&H stable no clear evidence for active bleed. Follow H&H closely with re-initiation of systemic anticoagulation. Recommend initiation of Eliquis 2.5 mg twice daily if okay with Nephrology. (6) Thrombocytopenia: Code(s): D69.6 - Thrombocytopenia, unspecified Status: Acute Assessment and Plan: Stable, monitor for bleeding and follow trends. Thrombocytopenia has resolved at this time. Subjective Date/time seen: Date of service: 07/05/23 12:52 Interval history: Cardiology follow up for CHF, AF Patient states he feels fine today. Sitting up at bedside. Heart rate reasonably controlled in AFib. He notes persistent lower extremity edema but no progression. Denies significant shortness of breath or chest pain. Scheduled for 1st hemodialysis session this afternoon after tunneled hemodialysis catheter placed yesterday. at bedside. Lengthy discussion with the patient and his with regards to plan of care. Review of Systems Review of Systems: Remainder of the review of systems is otherwise negative aside from that noted in the HPI. All systems reviewed & are unremarkable except as noted in HPI and below Constitutional: Constitutional: Reports lethargy Eyes: Eyes: Reports no additional eye complaint
--- NOTE | 2023-07-05 15:00 | PM.PNNEP ---
Progress Note: A&P Assessment and Plan (1) LINDSEY (acute kidney injury): Code(s): N17.9 - Acute kidney failure, unspecified Status: Acute Assessment and Plan: suspect due to chronic prerenal azotemia worsened by need for chronic diuretic therapy evaluation to date: renal ultrasound with left hydronephrosis urine electrolytes are prerenal CPK normal UA unremarkable no further improvement with dopamine so discontinued Urology recommendations noted CT scan results noted.... bilateral kidney masses measuring up to 3.1 cm on the left which may be hemorrhagic cysts or less likely neoplasms. Abdomen MRI without and with contrast is recommended HD today will need outpatient dialysis set-up (2) Stage 3b chronic kidney disease: Code(s): N18.32 - Chronic kidney disease, stage 3b Status: Chronic Assessment and Plan: baseline creatinine runs ~ 2.0 - 2.5mg/dl due to biopsy proven hypertensive and diabetic nephrosclerosis his underlying CHF and need for diuretic therapy are playing a role as well (3) Edema: Code(s): R60.9 - Edema, unspecified Status: Acute Assessment and Plan: worsening with subsequent admission off dopamine IV diuretics resumed follow clinical exam, daily weights, and I/Os he remains at 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 (4) Congestive heart failure: Code(s): I50.9 - Heart failure, unspecified Status: Chronic Assessment and Plan: suspect acute on chronic diastolic heart failure based on history repeat Echo noted Cardiology following (5) Essential (primary) hypertension: Code(s): I10 - Essential (primary) hypertension Status: Chronic Assessment and Plan: reasonable control follow trend of hemodynamis (6) Iron deficiency anemia: Qualifiers: Iron deficiency anemia type: unspecified iron deficiency Qualified Code(s): D50.9 - Iron deficiency anemia, unspecified Code(s): D50.9 - Iron deficiency anemia, unspecified Status: Acute Assessment and Plan: partly related to LINDSEY and CKD on IV venofer and Epogen while hospitalized PRBC transfusion per protocol he reports he has antibodies so transfusion may be difficult follow trend of H/H (7) Type 2 diabetes mellitus with diabetic neuropathy: Qualifiers: Diabetes mellitus rotary operator insulin use: without rotary operator use Qualified Code(s): E11.40 - Type 2 diabetes mellitus with diabetic neuropathy, unspecified Code(s): E11.40 - Type 2 diabetes mellitus with diabetic neuropathy, unspecified Status: Chronic Assessment and Plan: follow accu-cheks glycemic control per hospitalists Will continue to follow. Subjective Date/time seen: 07/05/23 15:00 Interval history: Follow-up for acute kidney injury/acute renal failure on chronic kidney disease. S/P tunneled HYD catheter placement yesterday afternoon and tolerated this procedure reasonably well; tolerating 1st hemodialysis treatment at this time as well (seen on HD at 2:50PM); no apparent distress noted currently; no other acute complaints voiced overnight or earlier today. Exam Narrative: General: WD/WN male in NAD Heart: normal S1 and S2; IRRR, no rub Lungs: clear anteriorly; few crackles at bases Abdomen: soft, nontender, nondistended, positive bowel sounds Extremities: no cyanosis or clubbing; 2+ edema Skin: no nodules Objective Data Vital Signs Vital Signs: Vital Signs Temp Pulse Resp BP Pulse Ox O2 Del Method O2 Flow Rate 07/05/23 15:00 55 L 125/63 07/05/23 14:45 53 L 129/69 07/05/23 14:40 52 L 128/66 07/05/23 14:26 98.0 F 53 L 18 132/71 07/05/23 14:00 56 L 07/05/23 12:00 55 L 07/05/23 10:00 58 L 07/05/23 08:00 52 L 07/05/23 12:00 98.7 F 60 16 109/65 96 07/05/23 12:00 Room Air 07/05/23 08:00 Room Air
--- NOTE | 2023-07-05 15:00 | P.PNNP_ITS ---
Progress Note: A&P Assessment and Plan (1) LINDSEY (acute kidney injury): Code(s): N17.9 - Acute kidney failure, unspecified Status: Acute Assessment and Plan: * suspect due to chronic prerenal azotemia worsened by need for chronic diuretic therapy * evaluation to date: * renal ultrasound with left hydronephrosis * urine electrolytes are prerenal * CPK normal * UA unremarkable * no further improvement with dopamine so discontinued * Urology recommendations noted * CT scan results noted.... bilateral kidney masses measuring up to 3.1 cm on the left which may be hemorrhagic cysts or less likely neoplasms. Abdomen MRI without and with contrast is recommended * HD today * will need outpatient dialysis set-up (2) Stage 3b chronic kidney disease: Code(s): N18.32 - Chronic kidney disease, stage 3b Status: Chronic Assessment and Plan: * baseline creatinine runs ~ 2.0 - 2.5mg/dl * due to biopsy proven hypertensive and diabetic nephrosclerosis * his underlying CHF and need for diuretic therapy are playing a role as well (3) Edema: Code(s): R60.9 - Edema, unspecified Status: Acute Assessment and Plan: * worsening with subsequent admission * off dopamine * IV diuretics resumed * follow clinical exam, daily weights, and I/Os * 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 (4) Congestive heart failure: Code(s): I50.9 - Heart failure, unspecified Status: Chronic Assessment and Plan: * suspect acute on chronic diastolic heart failure based on history * repeat Echo noted * Cardiology following (5) Essential (primary) hypertension: Code(s): I10 - Essential (primary) hypertension Status: Chronic Assessment and Plan: * reasonable control * follow trend of hemodynamis (6) Iron deficiency anemia: Qualifiers: Iron deficiency anemia type: unspecified iron deficiency Qualified Code(s): D50.9 - Iron deficiency anemia, unspecified Code(s): D50.9 - Iron deficiency anemia, unspecified Status: Acute Assessment and Plan: * partly related to LINDSEY and CKD * on IV venofer and Epogen while hospitalized * PRBC transfusion per protocol * he reports he has antibodies so transfusion may be difficult * follow trend of H/H (7) Type 2 diabetes mellitus with diabetic neuropathy: Qualifiers: Diabetes mellitus long term care pharmacist insulin use: without long term care pharmacist use Qu alified Code(s): E11.40 - Type 2 diabetes mellitus with diabetic neuropathy, unspecified Code(s): E11.40 - Type 2 diabetes mellitus with diabetic neuropathy, unspecified Status: Chronic Assessment and Plan: * follow accu-cheks * glycemic control per hospitalists Will continue to follow. Subjective Date/time seen: 07/05/23 15:00 Interval history: Follow-up for acute kidney injury/acute renal failure on chronic kidney disease. S/P tunneled HYD catheter placement yesterday afternoon and tolerated this procedure reasonably well; tolerating 1st hemodialysis treatment at this time as well (seen on HD at 2:50PM); no apparent distress noted currently; no other acute complaints voiced overnight or earlier today. Exam Narrative: General: WD/WN male in NAD Heart: normal S1 and S2; IRRR, no rub Lungs: clear anteriorly; few crackles at bases Abdomen: soft, nontender, nondistended, positive bowel sounds Extremities: no cyanosis or clubbing; 2+ edema Skin: no nodules
[2023-07-05 15:30] LABS: Basophils Percent Auto 0.7 % (0.2-1.2); Eosinophils Absolute Auto 0.1 K/mm3 (0-0.3); Eosinophils Percent Auto 0.9 % (0-4.4); Hematocrit 27.9 % (42.0-52.0); Hemoglobin 8.2 g/dL (14.0-18.0); Immature Granulocyte Absolute 0.11 K/mm3 (0.00-0.031); Lymphocytes Absolute Auto 0.55 K/mm3 (0.9-3.2); Lymphocytes Percent Auto 9.8 % (18.3-44.2); Mean Corpuscular HGB Conc 29.4 g/dl (32-36); Mean Corpuscular Hemoglobin 25.5 pg (26-34); Mean Corpuscular Volume 86.9 fl (80-100); Mean Platelet Volume 10.7 fl (7.4-10.4); Monocytes Absolute Auto 0.7 K/mm3 (0.1-0.6); Monocytes Percent Auto 11.5 % (2.6-8.5); Neutrophils Absolute Auto 4.2 K/mm3 (1.3-6.7); Neutrophils Percent Auto 75.1 % (45.5-73.1); Platelet Count Result 160 k/mm3 (150-375); Red Blood Count 3.21 M/mm3 (4.6-6.20); Red Cell Distribution Width 23.9 % (11.5-14.5); White Blood Count 5.6 K/mm3 (4.5-10.0)
[2023-07-05] MEDS: ALBUMIN HUMAN 25% 12.5 GM/50ML 50 ML IVPB (15:37)
[2023-07-05 16:05] LABS: Anisocytosis 2+ (NORMAL); Hypochromasia 1+ (NORMAL); Platelet Estimate Adequate (Adequate); Poikilocytosis 1+ (NORMAL); Schistocytes None Seen (NORMAL)
[2023-07-05] MEDS: EPOETIN ALFA 20,000 UNITS/ML VIAL 20000 UNITS IV PUSH (16:34)
[2023-07-05 16:54] LABS: Glucose Point of Care 153 mg/dl (65-105)
[2023-07-05 20:14] LABS: Glucose Point of Care 269 mg/dl (65-105)
[2023-07-05] MEDS: GABAPENTIN 300 MG CAPSULE PO (21:33)
[2023-07-05] MEDS: APIXABAN 2.5 MG TABLET PO (21:34)
[2023-07-06] VITALS (9 sets, daily range): BP systolic 99–113; BP diastolic 42–60; PULSE 43–96; RESP 14–18; TEMP 36.8–37.2; O2SAT 97–100
--- NOTE | 2023-07-06 00:30 | PC.NURSE ---
This patient, Khalif Yanez, was transferred to [facility] on 07/06/23 at 0030. Report given to Srinath MORALES. Personal belongings sent with patient. Appropriate documentation sent with patient.
--- NOTE | 2023-07-06 00:31 | PC.NURSE ---
Patient transferred from IMU 206 to edical 343 at this time. Patient is alert and orientated, educated to new surroundings and room.
[2023-07-06 06:23] LABS: Basophils Percent Auto 0.8 % (0.2-1.2); Eosinophils Absolute Auto 0.1 K/mm3 (0-0.3); Eosinophils Percent Auto 1.2 % (0-4.4); Hematocrit 27.3 % (42.0-52.0); Immature Granulocyte Absolute 0.02 K/mm3 (0.00-0.031); Immature Granulocyte Percent A 0.4 % (0-0.5); Lymphocytes Absolute Auto 0.73 K/mm3 (0.9-3.2); Lymphocytes Percent Auto 14.1 % (18.3-44.2); Mean Corpuscular HGB Conc 29.3 g/dl (32-36); Mean Corpuscular Hemoglobin 25.2 pg (26-34); Mean Corpuscular Volume 85.8 fl (80-100); Mean Platelet Volume 10.4 fl (7.4-10.4); Monocytes Absolute Auto 0.8 K/mm3 (0.1-0.6); Monocytes Percent Auto 15.8 % (2.6-8.5); Neutrophils Absolute Auto 3.5 K/mm3 (1.3-6.7); Neutrophils Percent Auto 67.7 % (45.5-73.1); Platelet Count Result 150 k/mm3 (150-375); Red Blood Count 3.18 M/mm3 (4.6-6.20); Red Cell Distribution Width 24.3 % (11.5-14.5); White Blood Count 5.2 K/mm3 (4.5-10.0)
[2023-07-06 06:41] LABS: Alanine Aminotransferase 8 U/L (6-50); Albumin Level 2.7 g/dL (3.5-5.1); Alkaline Phosphatase 99 U/L (38-126); Anion Gap 9 mmol/L (8-16); Aspartate Amino Transferase 18 U/L (17-59); Bilirubin,Total 0.7 mg/dL (0.2-1.3); Blood Urea Nitrogen 102 mg/dL (9-20); Calcium 7.7 mg/dL (8.4-10.2); Carbon Dioxide 26 mmol/L (22-30); Chloride 98 mmol/L (98-107); Estimated CRCL calculation 22 ml/min; Estimated Glomerular Filt Rate 23; Glucose 178 mg/dL (65-110); Potassium 3.6 mmol/L (3.4-5.0); Sodium 133 mmol/L (137-145)
[2023-07-06 06:48] LABS: Anisocytosis 1+ (NORMAL); Burr Cells 1+ (NORMAL); Hypochromasia 1+ (NORMAL); Ovalocytes 1+ (NORMAL); Platelet Estimate Adequate (Adequate); Schistocytes None Seen (NORMAL)
[2023-07-06 09:15] LABS: Glucose Point of Care 174 mg/dl (65-105)
[2023-07-06] MEDS: allopurinoL 100 MG TABLET PO (09:32)
[2023-07-06] MEDS: carvediloL 12.5 MG TABLET PO (09:33)
[2023-07-06] MEDS: calcitrioL 0.25 MCG CAPSULE PO (09:33)
[2023-07-06] MEDS: CHOLECALCIFEROL 1,000 UNITS TABLET 2000 UNITS PO (09:33)
[2023-07-06] MEDS: APIXABAN 2.5 MG TABLET PO ×2 (09:33→21:34)
[2023-07-06] MEDS: ATORVASTATIN 10 MG TABLET PO (09:33)
--- NOTE | 2023-07-06 11:53 | PM.IMPN ---
Progress Note: A&P Assessment and Plan (1) Acute on chronic kidney failure: Code(s): N17.9 - Acute kidney failure, unspecified; N18.9 - Chronic kidney disease, unspecified Status: Acute Assessment and Plan: likely d/t hypervolemia from volume overload with significant bilateral lower extremity edema with mild congestive changes on chest x-ray, possible venous stasis edema Venous Doppler shows no DVT He has been on metolazone recently for this swelling without benefit. Appreciate cardiology recommendations Pt is on iv bumex started by cardiology with careful watching of his kidney function Echo shows diastolic heart failure 07/05: HD to start today 07/06: cont HD, d/c planning soon when nephrology arranges outpatient follow up and stabilizes patient (2) Chronic anemia: Code(s): D64.9 - Anemia, unspecified Status: Acute Assessment and Plan: Suspecting acute blood loss anemia Patient is on Xarelto for AFib onhold for procedure Hemoglobin 10.0 August 20, 1999 is 3, 7.0 POA, trending down to 6.9 06/28 Chronic anemia likely secondary to chronic renal failure, but the significant drop in hemoglobin may indicate blood loss Transfuse 1 pack RBC 06/28 pt had venofer pt had Epogen 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 As per GI, pt had egd and colonoscopy recently, hb is stable no occult bleeding no need for any intervention (3) Acute on chronic diastolic CHF (congestive heart failure): Code(s): I50.33 - Acute on chronic diastolic (congestive) heart failure Status: Acute Assessment and Plan: see above Does have significant edema, does not appear to be in acute heart failure exacerbation, will apply nichol cook (4) Electrolyte abnormality: Code(s): E87.8 - Other disorders of electrolyte and fluid balance, not elsewhere classified Status: Acute (5) Thrombocytopenia: Code(s): D69.6 - Thrombocytopenia, unspecified Status: Acute (6) Type 2 diabetes mellitus with diabetic neuropathy: Qualifiers: Diabetes mellitus snf insulin use: without termite treater use Qualified Code(s): E11.40 - Type 2 diabetes mellitus with diabetic neuropathy, unspecified Code(s): E11.40 - Type 2 diabetes mellitus with diabetic neuropathy, unspecified Status: Chronic Assessment and Plan: Accu-Cheks and sliding scale insulin Blood glucose reviewed 07/06 (7) Shingles: Code(s): B02.9 - Zoster without complications Status: Acute Assessment and Plan: Flank pain post shingles infection Pain is well controlled with gabapentin 300 mg q.h.s. Healing scar over the skin due to shingles infection recently Patient received 7 days valacyclovir, completed course of shingle treatment Stable to active lesions Wound consult Plan DVT prophylaxis with Xarelto GI prophylaxis not indicated Code status full code Subjective Date/time seen: 07/06/23 11:53 Interval history: 83-year-old male with congestive heart failure, pulmonary hypertension, chronic kidney disease, type 2 diabetes mellitus, hypertension, chronic anemia, and other comorbidities who presented to the emergency department via private vehicle for evaluation of swelling and is being treated for CHF exacerbation, LINDSEY, anemia. 07/04: placement of tunneled central venous catheter, plan to start temporary dialysis in hospital No overnight events noted. No chest pain or shortness of breath. No nausea, vomiting or diarrhea. No fevers or chills. Plan for HD today. 07/06: HD tomorrow, doing well today. C/o umbilical pain over hernia. Also with wound on back that remain for weeks. Review of Systems Review of Systems: 12 point review of systems was assessed and was negative except as noted in the HPI Exam Narrative: General: No acute distress, alert and oriented per baseline HEENT: Atraumatic, normocephalic, mucous membranes moist CV: Regular rate and rhythm, S1, S2 Lung
--- NOTE | 2023-07-06 12:01 | P.PNNP_ITS ---
Progress Note: A&P Assessment and Plan (1) LINDSEY (acute kidney injury): Code(s): N17.9 - Acute kidney failure, unspecified Status: Acute Assessment and Plan: * suspect due to chronic prerenal azotemia worsened by need for chronic diuretic therapy * evaluation to date: * renal ultrasound with left hydronephrosis * urine electrolytes are prerenal * CPK normal * UA unremarkable * no further improvement with dopamine so discontinued * Urology recommendations noted * CT scan results noted.... bilateral kidney masses measuring up to 3.1 cm on the left which may be hemorrhagic cysts or less likely neoplasms. Abdomen MRI without and with contrast is recommended * HD tomorrow * will need outpatient dialysis set-up (2) Stage 3b chronic kidney disease: Code(s): N18.32 - Chronic kidney disease, stage 3b Status: Chronic Assessment and Plan: * baseline creatinine runs ~ 2.0 - 2.5mg/dl * due to biopsy proven hypertensive and diabetic nephrosclerosis * his underlying CHF and need for diuretic therapy are playing a role as well (3) Edema: Code(s): R60.9 - Edema, unspecified Status: Acute Assessment and Plan: * worsening with subsequent admission * off dopamine * IV diuretics resumed - will transition to oral diuretics * follow clinical exam, daily weights, and I/Os * fluid removal with HD as tolerated (4) Congestive heart failure: Code(s): I50.9 - Heart failure, unspecified Status: Chronic Assessment and Plan: * suspect acute on chronic diastolic heart failure based on history * repeat Echo noted * Cardiology following (5) Essential (primary) hypertension: Code(s): I10 - Essential (primary) hypertension Status: Chronic Assessment and Plan: * reasonable control * follow trend of hemodynamis (6) Iron deficiency anemia: Qualifiers: Iron deficiency anemia type: unspecified iron deficiency Qualified Code(s): D50.9 - Iron deficiency anemia, unspecified Code(s): D50.9 - Iron deficiency anemia, unspecified Status: Acute Assessment and Plan: * partly related to LINDSEY and CKD * on IV venofer and Epogen while hospitalized * PRBC transfusion per protocol * he reports he has antibodies so transfusion may be difficult * follow trend of H/H (7) Type 2 diabetes mellitus with diabetic neuropathy: Qualifiers: Diabetes mellitus care home insulin use: without care home use Qualified Code(s): E11.40 - Type 2 diabetes mellitus with diabetic neuropathy, unspecified Code(s): E11.40 - Type 2 diabetes mellitus with diabetic neuropathy, unspecified Status: Chronic Assessment and Plan: * follow accu-cheks * glycemic control per hospitalists Will continue to follow. Subjective Date/time seen: 07/06/23 12:01 Interval history: Follow-up for acute kidney injury/acute renal failure on chronic kidney disease. Tolerated dialysis treatment yesterday with almost 3L fluid removal; feels okay but still noted lower extremity edema/swelling; + family as well as friends at bedside and we discussed the situation; no apparent distress and feels okay currently. Exam Narrative: General: WD/WN male in NAD Heart: normal S1 and S2; IRRR, no rub Lungs: clear anteriorly; few crackles at bases Abdomen: soft, nontender, nondistended, positive bowel sounds Extremities: no cyanosis or clubbing; 2+ edema Skin: warm and dry
--- NOTE | 2023-07-06 12:01 | PM.PNNEP ---
Progress Note: A&P Assessment and Plan (1) LINDSEY (acute kidney injury): Code(s): N17.9 - Acute kidney failure, unspecified Status: Acute Assessment and Plan: suspect due to chronic prerenal azotemia worsened by need for chronic diuretic therapy evaluation to date: renal ultrasound with left hydronephrosis urine electrolytes are prerenal CPK normal UA unremarkable no further improvement with dopamine so discontinued Urology recommendations noted CT scan results noted.... bilateral kidney masses measuring up to 3.1 cm on the left which may be hemorrhagic cysts or less likely neoplasms. Abdomen MRI without and with contrast is recommended HD tomorrow will need outpatient dialysis set-up (2) Stage 3b chronic kidney disease: Code(s): N18.32 - Chronic kidney disease, stage 3b Status: Chronic Assessment and Plan: baseline creatinine runs ~ 2.0 - 2.5mg/dl due to biopsy proven hypertensive and diabetic nephrosclerosis his underlying CHF and need for diuretic therapy are playing a role as well (3) Edema: Code(s): R60.9 - Edema, unspecified Status: Acute Assessment and Plan: worsening with subsequent admission off dopamine IV diuretics resumed - will transition to oral diuretics follow clinical exam, daily weights, and I/Os fluid removal with HD as tolerated (4) Congestive heart failure: Code(s): I50.9 - Heart failure, unspecified Status: Chronic Assessment and Plan: suspect acute on chronic diastolic heart failure based on history repeat Echo noted Cardiology following (5) Essential (primary) hypertension: Code(s): I10 - Essential (primary) hypertension Status: Chronic Assessment and Plan: reasonable control follow trend of hemodynamis (6) Iron deficiency anemia: Qualifiers: Iron deficiency anemia type: unspecified iron deficiency Qualified Code(s): D50.9 - Iron deficiency anemia, unspecified Code(s): D50.9 - Iron deficiency anemia, unspecified Status: Acute Assessment and Plan: partly related to LINDSEY and CKD on IV venofer and Epogen while hospitalized PRBC transfusion per protocol he reports he has antibodies so transfusion may be difficult follow trend of H/H (7) Type 2 diabetes mellitus with diabetic neuropathy: Qualifiers: Diabetes mellitus prison insulin use: without prison use Qualified Code(s): E11.40 - Type 2 diabetes mellitus with diabetic neuropathy, unspecified Code(s): E11.40 - Type 2 diabetes mellitus with diabetic neuropathy, unspecified Status: Chronic Assessment and Plan: follow accu-cheks glycemic control per hospitalists Will continue to follow. Subjective Date/time seen: 07/06/23 12:01 Interval history: Follow-up for acute kidney injury/acute renal failure on chronic kidney disease. Tolerated dialysis treatment yesterday with almost 3L fluid removal; feels okay but still noted lower extremity edema/swelling; + family as well as friends at bedside and we discussed the situation; no apparent distress and feels okay currently. Exam Narrative: General: WD/WN male in NAD Heart: normal S1 and S2; IRRR, no rub Lungs: clear anteriorly; few crackles at bases Abdomen: soft, nontender, nondistended, positive bowel sounds Extremities: no cyanosis or clubbing; 2+ edema Skin: warm and dry Objective Data Vital Signs Vital Signs: Vital Signs Temp Pulse Resp BP Pulse Ox O2 Del Method 07/06/23 12:00 43 L 07/06/23 09:33 Room Air 07/06/23 08:23 57 L 07/06/23 09:33 113/54 L 07/06/23 09:33 68 07/06/23 04:00 47 L 07/06/23 04:00 98.2 F 52 L 14 99/47 L 97 07/05/23 22:00 62 07/05/23 20:00 96 Room Air 07/05/23 20:00 65 07/05/23 21:33 59 L 07/05/23 18:00 51 L 07/05/23 17:40 50
[2023-07-06 12:33] LABS: Glucose Point of Care 312 mg/dl (65-105)
[2023-07-06] MEDS: INSULIN ASPART (*BKC) 100 UNITS/ML SUB-Q ×2 (12:39→21:32)
[2023-07-06 17:23] LABS: Glucose Point of Care 180 mg/dl (65-105)
[2023-07-06] MEDS: BUMETANIDE 1 MG TABLET PO (17:42)
[2023-07-06 21:03] LABS: Glucose Point of Care 264 mg/dl (65-105)
[2023-07-06] MEDS: GABAPENTIN 300 MG CAPSULE PO (21:32)
[2023-07-07] VITALS (27 sets, daily range): BP systolic 92–126; BP diastolic 44–73; PULSE 45–83; RESP 14–18; TEMP 36.6–38.3; O2SAT 97–99
[2023-07-07 05:57] LABS: Basophils Percent Auto 0.7 % (0.2-1.2); Eosinophils Absolute Auto 0.1 K/mm3 (0-0.3); Eosinophils Percent Auto 1.4 % (0-4.4); Hematocrit 27.1 % (42.0-52.0); Hemoglobin 8.1 g/dL (14.0-18.0); Immature Granulocyte Absolute 0.02 K/mm3 (0.00-0.031); Immature Granulocyte Percent A 0.4 % (0-0.5); Lymphocytes Absolute Auto 0.81 K/mm3 (0.9-3.2); Lymphocytes Percent Auto 14.2 % (18.3-44.2); Mean Corpuscular HGB Conc 29.9 g/dl (32-36); Mean Corpuscular Hemoglobin 25.7 pg (26-34); Mean Platelet Volume 10.2 fl (7.4-10.4); Monocytes Absolute Auto 0.8 K/mm3 (0.1-0.6); Monocytes Percent Auto 13.5 % (2.6-8.5); Neutrophils Percent Auto 69.8 % (45.5-73.1); Platelet Count Result 140 k/mm3 (150-375); Red Blood Count 3.15 M/mm3 (4.6-6.20); Red Cell Distribution Width 24.8 % (11.5-14.5); White Blood Count 5.7 K/mm3 (4.5-10.0)
[2023-07-07 06:28] LABS: Alanine Aminotransferase 8 U/L (6-50); Albumin Level 2.9 g/dL (3.5-5.1); Alkaline Phosphatase 105 U/L (38-126); Anion Gap 11 mmol/L (8-16); Aspartate Amino Transferase 21 U/L (17-59); Bilirubin,Total 0.8 mg/dL (0.2-1.3); Blood Urea Nitrogen 106 mg/dL (9-20); Calcium 7.9 mg/dL (8.4-10.2); Carbon Dioxide 24 mmol/L (22-30); Chloride 96 mmol/L (98-107); Estimated CRCL calculation 21 ml/min; Estimated Glomerular Filt Rate 23; Glucose 182 mg/dL (65-110); Potassium 3.6 mmol/L (3.4-5.0); Sodium 131 mmol/L (137-145)
[2023-07-07 07:21] LABS: Platelet Estimate Decreased (Adequate)
[2023-07-07 07:22] LABS: Anisocytosis 2+ (NORMAL); Burr Cells 1+ (NORMAL); Hypochromasia 2+ (NORMAL); Schistocytes None Seen (NORMAL)
[2023-07-07 07:23] LABS: Ovalocytes 1+ (NORMAL)
--- NOTE | 2023-07-07 08:01 | PCOTNOTE ---
The patient treatment was not able to be completed on07/07 at 8:00 patient going to HD. Will plan to continue treatment per plan of care.
[2023-07-07 08:03] LABS: Glucose Point of Care 171 mg/dl (65-105)
--- NOTE | 2023-07-07 08:10 | PC.NURSE ---
Patient off of unit to dialysis
--- NOTE | 2023-07-07 08:19 | PCWOUND ---
Spoke with patient's RN Jonnie, patient is currently in dialysis for the morning. States that a surgical consult has also been placed for area of patient's back. Wound care to hold off on consult until after surgical recommendations.
--- NOTE | 2023-07-07 09:51 | PCPTNOTE ---
The patient treatment was not able to be completed due to patient out of room for dialysis. Will plan to continue treatment per plan of care.
[2023-07-07] MEDS: EPOETIN ALFA-EPBX 10,000 UNITS/ML VIAL 10000 UNITS IV PUSH (10:41)
[2023-07-07] MEDS: SODIUM CHLORIDE 0.9% IV 1,000 ML 999 ML IV CONT ×2 (10:49→10:50)
--- NOTE | 2023-07-07 11:04 | PM.PNNEP ---
Progress Note: A&P Assessment and Plan (1) LINDSEY (acute kidney injury): Code(s): N17.9 - Acute kidney failure, unspecified Status: Acute Assessment and Plan: suspect due to chronic prerenal azotemia worsened by need for chronic diuretic therapy evaluation to date: renal ultrasound with left hydronephrosis urine electrolytes are prerenal CPK normal UA unremarkable no further improvement with dopamine so discontinued Urology recommendations noted CT scan results noted.... bilateral kidney masses measuring up to 3.1 cm on the left which may be hemorrhagic cysts or less likely neoplasms. Abdomen MRI without and with contrast is recommended HD today will need outpatient dialysis on discharge (2) Stage 3b chronic kidney disease: Code(s): N18.32 - Chronic kidney disease, stage 3b Status: Chronic Assessment and Plan: baseline creatinine runs ~ 2.0 - 2.5mg/dl due to biopsy proven hypertensive and diabetic nephrosclerosis his underlying CHF and need for diuretic therapy are playing a role as well (3) Edema: Code(s): R60.9 - Edema, unspecified Status: Acute Assessment and Plan: worsening with subsequent admission off dopamine IV diuretics resumed - will transition to oral diuretics follow clinical exam, daily weights, and I/Os fluid removal with HD as tolerated (4) Congestive heart failure: Code(s): I50.9 - Heart failure, unspecified Status: Chronic Assessment and Plan: suspect acute on chronic diastolic heart failure based on history repeat Echo noted Cardiology following (5) Essential (primary) hypertension: Code(s): I10 - Essential (primary) hypertension Status: Chronic Assessment and Plan: reasonable control follow trend of hemodynamis (6) Iron deficiency anemia: Qualifiers: Iron deficiency anemia type: unspecified iron deficiency Qualified Code(s): D50.9 - Iron deficiency anemia, unspecified Code(s): D50.9 - Iron deficiency anemia, unspecified Status: Acute Assessment and Plan: partly related to LINDSEY and CKD on IV venofer and Epogen while hospitalized PRBC transfusion per protocol he reports he has antibodies so transfusion may be difficult follow trend of H/H (7) Type 2 diabetes mellitus with diabetic neuropathy: Qualifiers: Diabetes mellitus jail insulin use: without jail use Qualified Code(s): E11.40 - Type 2 diabetes mellitus with diabetic neuropathy, unspecified Code(s): E11.40 - Type 2 diabetes mellitus with diabetic neuropathy, unspecified Status: Chronic Assessment and Plan: follow accu-cheks glycemic control per hospitalists Will continue to follow. Subjective Date/time seen: 07/07/23 11:04 Interval history: Follow-up for acute kidney injury/acute renal failure on chronic kidney disease. Tolerating second hemodialysis treatment at the time of my visit (seen on HD at 10:55AM); no apparent distress voice currently; no issues overnight or earlier this morning; overall, states he feels pretty good. Exam Narrative: General: WD/WN male in NAD Heart: normal S1 and S2; IRRR, no rub Lungs: clear anteriorly; few crackles at bases Abdomen: soft, nontender, nondistended, positive bowel sounds Extremities: no cyanosis or clubbing; 2+ edema Skin: warm and intact Objective Data Vital Signs Vital Signs: Vital Signs Temp Pulse Resp BP Pulse Ox O2 Del Method 07/07/23 11:00 61 116/64 07/07/23 10:45 54 L 126/64 07/07/23 10:30 54 L 113/58 L 07/07/23 10:00 47 L 115/63 07/07/23 09:45 45 L 111/58 L 07/07/23 10:15 54 L 119/73 07/07/23 09:30 48 L 107/61 07/07/23 09:15 57 L 105/64 07/07/23 09:00 56 L 96/57 L 07/07/23 08:45 59 L 102/68 07/07/23 08:30 83 103/70 07/07/23 08:16 76 103/57 L
--- NOTE | 2023-07-07 11:04 | P.PNNP_ITS ---
Progress Note: A&P Assessment and Plan (1) LINDSEY (acute kidney injury): Code(s): N17.9 - Acute kidney failure, unspecified Status: Acute Assessment and Plan: * suspect due to chronic prerenal azotemia worsened by need for chronic diuretic therapy * evaluation to date: * renal ultrasound with left hydronephrosis * urine electrolytes are prerenal * CPK normal * UA unremarkable * no further improvement with dopamine so discontinued * Urology recommendations noted * CT scan results noted.... bilateral kidney masses measuring up to 3.1 cm on the left which may be hemorrhagic cysts or less likely neoplasms. Abdomen MRI without and with contrast is recommended * HD today * will need outpatient dialysis on discharge (2) Stage 3b chronic kidney disease: Code(s): N18.32 - Chronic kidney disease, stage 3b Status: Chronic Assessment and Plan: * baseline creatinine runs ~ 2.0 - 2.5mg/dl * due to biopsy proven hypertensive and diabetic nephrosclerosis * his underlying CHF and need for diuretic therapy are playing a role as well (3) Edema: Code(s): R60.9 - Edema, unspecified Status: Acute Assessment and Plan: * worsening with subsequent admission * off dopamine * IV diuretics resumed - will transition to oral diuretics * follow clinical exam, daily weights, and I/Os * fluid removal with HD as tolerated (4) Congestive heart failure: Code(s): I50.9 - Heart failure, unspecified Status: Chronic Assessment and Plan: * suspect acute on chronic diastolic heart failure based on history * repeat Echo noted * Cardiology following (5) Essential (primary) hypertension: Code(s): I10 - Essential (primary) hypertension Status: Chronic Assessment and Plan: * reasonable control * follow trend of hemodynamis (6) Iron deficiency anemia: Qualifiers: Iron deficiency anemia type: unspecified iron deficiency Qualified Code(s): D50.9 - Iron deficiency anemia, unspecified Code(s): D50.9 - Iron deficiency anemia, unspecified Status: Acute Assessment and Plan: * partly related to LINDSEY and CKD * on IV venofer and Epogen while hospitalized * PRBC transfusion per protocol * he reports he has antibodies so transfusion may be difficult * follow trend of H/H (7) Type 2 diabetes mellitus with diabetic neuropathy: Qualifiers: Diabetes mellitus 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 Subjective Date/time seen: 07/07/23 11:04 Interval history: Follow-up for acute kidney injury/acute renal failure on chronic kidney disease. Tolerating second hemodialysis treatment at the time of my visit (seen on HD at 10:55AM); no apparent distress voice currently; no issues overnight or earlier this morning; overall, states he feels pretty good. Exam Narrative: General: WD/WN male in NAD Heart: normal S1 and S2; IRRR, no rub Lungs: clear anteriorly; few crackles at bases Abdomen: soft, nontender, nondistended, positive bowel sounds Extremities: no cyanosis or clubbing; 2+ edema Skin: warm and intact Objective Data
[2023-07-07 11:45] LABS: Hepatitis B Core Ab Total Nonreactive (Nonreactive)
--- NOTE | 2023-07-07 12:33 | PC.NURSE ---
Patient is back to unit from dialysis
[2023-07-07 12:47] LABS: Glucose Point of Care 145 mg/dl (65-105)
--- NOTE | 2023-07-07 15:09 | PM.CNGS ---
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 This causes him pain intermittently, but this seems to have progressively worsened more recently. He had a CT scan of the abdomen and pelvis a week ago that showed the hernia containing nonobstructed small bowel. He does not have any clinical signs of a bowel obstruction at this time. The hernia is soft and reducible on exam today. There is no indication for emergent surgical repair. I have ordered an abdominal binder and recommended that he try using this during the day and with activity. He is already aware of how to manually reduce this himself. I discussed with the patient that once his acute medical problems are treated, he could follow-up with Dr. Schulte as an outpatient to consider elective repair once he is medically optimized. We also discussed the risks of incarceration and strangulation of the hernia in the interim, which he and his understand. (2) Shingles: Code(s): B02.9 - Zoster without complications Status: Acute Assessment and Plan: Patient with shingles about 3 weeks ago. Lesions have scabbed and it appears some scabs have come off and he has a small superficial open wound on the left lower back that is stable. No necrotic tissue or signs of infection. No indication for any surgical intervention at this time. Recommend to continue local wound care. Wound care nurses consulted for recommendations for dressings. (3) Acute on chronic kidney failure: Code(s): N17.9 - Acute kidney failure, unspecified; N18.9 - Chronic kidney disease, unspecified Status: Acute (4) Acute on chronic diastolic CHF (congestive heart failure): Code(s): I50.33 - Acute on chronic diastolic (congestive) heart failure Status: Acute (5) Atrial fibrillation: Code(s): I48.91 - Unspecified atrial fibrillation Status: Acute (6) Type 2 diabetes mellitus with diabetic neuropathy: Qualifiers: Diabetes mellitus penitentiary insulin use: without penitentiary use Qualified Code(s): E11.40 - Type 2 diabetes mellitus with diabetic neuropathy, unspecified Code(s): E11.40 - Type 2 diabetes mellitus with diabetic neuropathy, unspecified Status: Chronic (7) Chronic anticoagulation: Code(s): Z79.01 - [facility] (current) use of anticoagulants Status: Chronic Assessment and Plan: Currently on Eliquis 2.5 mg Q12H (8) Anemia of chronic disease: Code(s): D63.8 - Anemia in other chronic diseases classified elsewhere Status: Chronic Plan I have discussed the patient's case and plan of care with Dr. Schulte. Thank you for allowing us to see the patient in consultation. History of Present Illness Consult details Consult date: 07/07/23 Reason for consult: other (Umbilical hernia, back wound) Requesting physician: Jackeline Estrella DO Narrative: This is an 83-year-old man with a history CHF, type 2 diabetes mellitus, pulmonary hypertension, chronic atrial fibrillation on Eliquis, chronic kidney disease, and multiple other medical problems. We have been asked to see the patient in surgical consultation for an umbilical hernia and a back wound. He was admitted over a week ago for a CHF exacerbation, anemia, and acute on chronic kidney disease. Nephrology has been following and we were consulted last week for placement of a hemodialysis catheter that was placed by Dr. Green on 07/04/2023. He has since been started on hemodialysis. During workup for his acute kidney injury, he had a renal ultrasound. This showed left hydronephrosis. He then had CT scan of abdomen and pelvis on 06/30/2023 for workup of the hydronephrosis, which showed no hydronephrosis, bilateral kidney masses measuring up to 3.1 cm on the left, and an umbi
[2023-07-07] MEDS: INSULIN ASPART (*BKC) 100 UNITS/ML SUB-Q ×2 (17:15→20:53)
[2023-07-07] MEDS: BUMETANIDE 1 MG TABLET PO (17:17)
[2023-07-07 17:45] LABS: Glucose Point of Care 213 mg/dl (65-105)
--- NOTE | 2023-07-07 17:59 | PM.IMPN ---
Progress Note: A&P Assessment and Plan (1) Acute on chronic kidney failure: Code(s): N17.9 - Acute kidney failure, unspecified; N18.9 - Chronic kidney disease, unspecified Status: Acute Assessment and Plan: likely d/t hypervolemia from volume overload with significant bilateral lower extremity edema with mild congestive changes on chest x-ray, possible venous stasis edema Venous Doppler shows no DVT He has been on metolazone recently for this swelling without benefit. Appreciate cardiology recommendations Pt is on iv bumex started by cardiology with careful watching of his kidney function Echo shows diastolic heart failure 07/05: HD to start today 07/06: cont HD, d/c planning soon when nephrology arranges outpatient follow up and stabilizes patient 07/07: Discharge soon, awaiting Nephrology recommendations regarding dialysis, and care coordination regarding SNF (2) Chronic anemia: Code(s): D64.9 - Anemia, unspecified Status: Acute Assessment and Plan: Suspecting acute blood loss anemia Patient is on Xarelto for AFib onhold for procedure Hemoglobin 10.0 August 20, 1999 is 3, 7.0 POA, trending down to 6.9 06/28 Chronic anemia likely secondary to chronic renal failure, but the significant drop in hemoglobin may indicate blood loss Transfuse 1 pack RBC 06/28 pt had venofer pt had Epogen per president & founder As per GI, pt had egd and colonoscopy recently, hb is stable no occult bleeding no need for any intervention 07/07:stable at 8.1 today (3) Acute on chronic diastolic CHF (congestive heart failure): Code(s): I50.33 - Acute on chronic diastolic (congestive) heart failure Status: Acute Assessment and Plan: see above Does have significant edema, does not appear to be in acute heart failure exacerbation, will apply nichol cook (4) Electrolyte abnormality: Code(s): E87.8 - Other disorders of electrolyte and fluid balance, not elsewhere classified Status: Acute (5) Thrombocytopenia: Code(s): D69.6 - Thrombocytopenia, unspecified Status: Acute (6) Type 2 diabetes mellitus with diabetic neuropathy: Qualifiers: Diabetes mellitus termite control servicer insulin use: without retirement use Qualified Code(s): E11.40 - Type 2 diabetes mellitus with diabetic neuropathy, unspecified Code(s): E11.40 - Type 2 diabetes mellitus with diabetic neuropathy, unspecified Status: Chronic Assessment and Plan: Accu-Cheks and sliding scale insulin Blood glucose reviewed 07/07 (7) Shingles: Code(s): B02.9 - Zoster without complications Status: Acute Assessment and Plan: Flank pain post shingles infection Pain is well controlled with gabapentin 300 mg q.h.s. Healing scar over the skin due to shingles infection recently Patient received 7 days valacyclovir, completed course of shingle treatment Stable to active lesions Wound consult Plan DVT prophylaxis with Xarelto GI prophylaxis not indicated Code status full code Subjective Date/time seen: 07/07/23 17:59 Interval history: 83-year-old male with congestive heart failure, pulmonary hypertension, chronic kidney disease, type 2 diabetes mellitus, hypertension, chronic anemia, and other comorbidities who presented to the emergency department via private vehicle for evaluation of swelling and is being treated for CHF exacerbation, LINDSEY, anemia. 07/07: Family wondering if this is a short-term or long-term thing with dialysis. They saw General surgery and are eager to get the hernia repaired on outpatient basis. No overnight events noted. No chest pain or shortness of breath. No nausea, vomiting or diarrhea. No fevers or chills. Review of Systems Review of Systems: 12 point review of systems was assessed and was negative except as noted in the HPI Exam Narrative: General: No acute distress, alert and oriented per baseline HEENT: Atraumatic, normo
[2023-07-07] MEDS: carvediloL 12.5 MG TABLET PO (20:49)
[2023-07-07] MEDS: GABAPENTIN 300 MG CAPSULE PO (20:49)
[2023-07-07] MEDS: APIXABAN 2.5 MG TABLET PO (20:50)
[2023-07-07] MEDS: traMADol HCL (*CRX) 50 MG TABLET PO (20:57)
[2023-07-07 21:11] LABS: Glucose Point of Care 219 mg/dl (65-105)
[2023-07-08] VITALS (27 sets, daily range): BP systolic 97–136; BP diastolic 52–74; PULSE 43–65; RESP 14–18; TEMP 36.3–38.3; O2SAT 99–100
[2023-07-08 05:53] LABS: Basophils Percent Auto 0.6 % (0.2-1.2); Eosinophils Absolute Auto 0.1 K/mm3 (0-0.3); Eosinophils Percent Auto 0.8 % (0-4.4); Hematocrit 27.9 % (42.0-52.0); Hemoglobin 8.1 g/dL (14.0-18.0); Immature Granulocyte Absolute 0.03 K/mm3 (0.00-0.031); Immature Granulocyte Percent A 0.5 % (0-0.5); Lymphocytes Absolute Auto 0.88 K/mm3 (0.9-3.2); Lymphocytes Percent Auto 14.2 % (18.3-44.2); Mean Corpuscular Hemoglobin 25.6 pg (26-34); Mean Platelet Volume 10.2 fl (7.4-10.4); Monocytes Absolute Auto 1.1 K/mm3 (0.1-0.6); Monocytes Percent Auto 16.9 % (2.6-8.5); Neutrophils Absolute Auto 4.2 K/mm3 (1.3-6.7); Platelet Count Result 141 k/mm3 (150-375); Red Blood Count 3.17 M/mm3 (4.6-6.20); Red Cell Distribution Width 24.9 % (11.5-14.5); White Blood Count 6.2 K/mm3 (4.5-10.0)
[2023-07-08 06:04] LABS: Alanine Aminotransferase 8 U/L (6-50); Albumin Level 2.7 g/dL (3.5-5.1); Alkaline Phosphatase 87 U/L (38-126); Anion Gap 9 mmol/L (8-16); Aspartate Amino Transferase 22 U/L (17-59); Bilirubin,Total 0.8 mg/dL (0.2-1.3); Blood Urea Nitrogen 86 mg/dL (9-20); Carbon Dioxide 25 mmol/L (22-30); Chloride 98 mmol/L (98-107); Estimated CRCL calculation 23 ml/min; Estimated Glomerular Filt Rate 25; Glucose 192 mg/dL (65-110); Potassium 3.8 mmol/L (3.4-5.0); Sodium 132 mmol/L (137-145)
[2023-07-08 08:35] LABS: Glucose Point of Care 173 mg/dl (65-105)
[2023-07-08] MEDS: MIDODRINE HCL 2.5 MG TABLET 5 MG PO ×2 (08:52→17:29)
--- NOTE | 2023-07-08 10:05 | PM.PNNEP ---
Progress Note: A&P Assessment and Plan (1) LINDSEY (acute kidney injury): Code(s): N17.9 - Acute kidney failure, unspecified Status: Acute Assessment and Plan: suspect due to chronic prerenal azotemia worsened by need for chronic diuretic therapy evaluation to date: renal ultrasound with left hydronephrosis urine electrolytes are prerenal CPK normal UA unremarkable no further improvement with dopamine so discontinued Urology recommendations noted CT scan results noted.... bilateral kidney masses measuring up to 3.1 cm on the left which may be hemorrhagic cysts or less likely neoplasms. Abdomen MRI without and with contrast is recommended HD today will need outpatient dialysis on discharge (2) Stage 3b chronic kidney disease: Code(s): N18.32 - Chronic kidney disease, stage 3b Status: Chronic Assessment and Plan: baseline creatinine runs ~ 2.0 - 2.5mg/dl due to biopsy proven hypertensive and diabetic nephrosclerosis his underlying CHF and need for diuretic therapy are playing a role as well (3) Edema: Code(s): R60.9 - Edema, unspecified Status: Acute Assessment and Plan: worsening with subsequent admission off dopamine transitioned to oral diuretics follow clinical exam, daily weights, and I/Os fluid removal with HD as tolerated (4) Congestive heart failure: Code(s): I50.9 - Heart failure, unspecified Status: Chronic Assessment and Plan: suspect acute on chronic diastolic heart failure based on history repeat Echo noted Cardiology following fluid removal with HD to maintain/achieve euvolemia (5) Essential (primary) hypertension: Code(s): I10 - Essential (primary) hypertension Status: Chronic Assessment and Plan: reasonable control follow trend of hemodynamis (6) Iron deficiency anemia: Qualifiers: Iron deficiency anemia type: unspecified iron deficiency Qualified Code(s): D50.9 - Iron deficiency anemia, unspecified Code(s): D50.9 - Iron deficiency anemia, unspecified Status: Acute Assessment and Plan: partly related to LINDSEY and CKD on IV venofer and Epogen while hospitalized PRBC transfusion per protocol he reports he has antibodies so transfusion may be difficult Epogen with HD follow trend of H/H (7) Type 2 diabetes mellitus with diabetic neuropathy: Qualifiers: Diabetes mellitus terminal clerk insulin use: without senior living use Qualified Code(s): E11.40 - Type 2 diabetes mellitus with diabetic neuropathy, unspecified Code(s): E11.40 - Type 2 diabetes mellitus with diabetic neuropathy, unspecified Status: Chronic Assessment and Plan: follow accu-cheks glycemic control per hospitalists Will continue to follow. Subjective Date/time seen: 07/08/23 10:05 Interval history: Follow-up for acute kidney injury/acute renal failure on chronic kidney disease. Tolerated dialysis yesterday and currently without any issues or problems (seen on HD at 9:55AM); breathing appears comfortable and swelling/edema in lower extremities seems about the same if not a little better per patient; no apparent distress voiced; no other complaints reported. Exam Narrative: General: WD/WN male in NAD Heart: normal S1 and S2; IRRR, no rub Lungs: clear anteriorly; few crackles at bases Abdomen: soft, nontender, nondistended, positive bowel sounds Extremities: no cyanosis or clubbing; 2+ edema Skin: warm and intact Objective Data Vital Signs Vital Signs: Vital Signs Temp Pulse Resp BP Pulse Ox O2 Del Method O2 Flow Rate 07/08/23 10:00 52 L 112/56 L 07/08/23 09:45 57 L 115/61 07/08/23 09:37 54 L 113/59 L 07/08/23 09:27 99.4 F 59 L 18 98/52 L 07/08/23 09:27 0 07/08/23 05:40 98.9 F 50 L 14 105/60 99 07/08/23 04:00 53 L 07/08/23 00:00 52 L
--- NOTE | 2023-07-08 10:05 | P.PNNP_ITS ---
Progress Note: A&P Assessment and Plan (1) LINDSEY (acute kidney injury): Code(s): N17.9 - Acute kidney failure, unspecified Status: Acute Assessment and Plan: * suspect due to chronic prerenal azotemia worsened by need for chronic diuretic therapy * evaluation to date: * renal ultrasound with left hydronephrosis * urine electrolytes are prerenal * CPK normal * UA unremarkable * no further improvement with dopamine so discontinued * Urology recommendations noted * CT scan results noted.... bilateral kidney masses measuring up to 3.1 cm on the left which may be hemorrhagic cysts or less likely neoplasms. Abdomen MRI without and with contrast is recommended * HD today * will need outpatient dialysis on discharge (2) Stage 3b chronic kidney disease: Code(s): N18.32 - Chronic kidney disease, stage 3b Status: Chronic Assessment and Plan: * baseline creatinine runs ~ 2.0 - 2.5mg/dl * due to biopsy proven hypertensive and diabetic nephrosclerosis * his underlying CHF and need for diuretic therapy are playing a role as well (3) Edema: Code(s): R60.9 - Edema, unspecified Status: Acute Assessment and Plan: * worsening with subsequent admission * off dopamine * transitioned to oral diuretics * follow clinical exam, daily weights, and I/Os * fluid removal with HD as tolerated (4) Congestive heart failure: Code(s): I50.9 - Heart failure, unspecified Status: Chronic Assessment and Plan: * suspect acute on chronic diastolic heart failure based on history * repeat Echo noted * Cardiology following * fluid removal with HD to maintain/achieve euvolemia (5) Essential (primary) hypertension: Code(s): I10 - Essential (primary) hypertension Status: Chronic Assessment and Plan: * reasonable control * follow trend of hemodynamis (6) Iron deficiency anemia: Qualifiers: Iron deficiency anemia type: unspecified iron deficiency Qualified Code(s): D50.9 - Iron deficiency anemia, unspecified Code(s): D50.9 - Iron deficiency anemia, unspecified Status: Acute Assessment and Plan: * partly related to LINDSEY and CKD * on IV venofer and Epogen while hospitalized * PRBC transfusion per protocol * he reports he has antibodies so transfusion may be difficult * Epogen with HD * follow trend of H/H (7) Type 2 diabetes mellitus with diabetic neuropathy: Qualifiers: Diabetes mellitus intermodal customer service insulin use: without intermodal customer service use Qualified Code(s): E11.40 - Type 2 diabetes mellitus with diabetic neuropathy, unspecified Code(s): E11.40 - Type 2 diabetes mellitus with diabetic neuropathy, unspecified Status: Chronic Assessment and Plan: * follow accu-cheks * glycemic control per hospitalists Will continue to follow. Subjective Date/time seen: 07/08/23 10:05 Interval history: Follow-up for acute kidney injury/acute renal failure on chronic kidney disease. Tolerated dialysis yesterday and currently without any issues or problems (seen on HD at 9:55AM); breathing appears comfortable and swelling/edema in lower extremities seems about the same if not a little better per patient; no apparent distress voiced; no other complaints reported. Exam Narrative: General: WD/WN male in NAD Heart: normal S1 and S2; IRRR, no rub Lungs: clear anteriorly; few crackles at bases Abdomen: soft, nontender, nondistended, positive keith
[2023-07-08] MEDS: ALBUMIN HUMAN 25% 12.5 GM/50ML 100 ML 50 GM (11:20)
[2023-07-08] MEDS: EPOETIN ALFA-EPBX 10,000 UNITS/ML VIAL 10000 UNITS IV PUSH (12:01)
--- NOTE | 2023-07-08 13:57 | PM.IMPN ---
Progress Note: A&P Assessment and Plan (1) Acute on chronic kidney failure: Code(s): N17.9 - Acute kidney failure, unspecified; N18.9 - Chronic kidney disease, unspecified Status: Acute Assessment and Plan: likely d/t hypervolemia from volume overload with significant bilateral lower extremity edema with mild congestive changes on chest x-ray, possible venous stasis edema Venous Doppler shows no DVT He has been on metolazone recently for this swelling without benefit. Appreciate cardiology recommendations Pt is on iv bumex started by cardiology with careful watching of his kidney function Echo shows diastolic heart failure 07/05: HD to start today 07/06: cont HD, d/c planning soon when nephrology arranges outpatient follow up and stabilizes patient 07/07: Discharge soon, awaiting Nephrology recommendations regarding dialysis, and care coordination regarding SNF 07/08: awaiting SNF and HD arrangements for discharge (2) Chronic anemia: Code(s): D64.9 - Anemia, unspecified Status: Acute Assessment and Plan: Suspecting acute blood loss anemia Patient is on Xarelto for AFib onhold for procedure Hemoglobin 10.0 August 20, 1999 is 3, 7.0 POA, trending down to 6.9 06/28 Chronic anemia likely secondary to chronic renal failure, but the significant drop in hemoglobin may indicate blood loss Transfuse 1 pack RBC 06/28 pt had venofer pt had Epogen per top lift and automatic window repairer As per GI, pt had egd and colonoscopy recently, hb is stable no occult bleeding no need for any intervention 07/07:stable at 8.1 today (3) Acute on chronic diastolic CHF (congestive heart failure): Code(s): I50.33 - Acute on chronic diastolic (congestive) heart failure Status: Acute Assessment and Plan: see above Does have significant edema, does not appear to be in acute heart failure exacerbation, will apply nichol cook (4) Electrolyte abnormality: Code(s): E87.8 - Other disorders of electrolyte and fluid balance, not elsewhere classified Status: Acute (5) Thrombocytopenia: Code(s): D69.6 - Thrombocytopenia, unspecified Status: Acute (6) Type 2 diabetes mellitus with diabetic neuropathy: Qualifiers: Diabetes mellitus fpc insulin use: without metal patternmaker use Qualified Code(s): E11.40 - Type 2 diabetes mellitus with diabetic neuropathy, unspecified Code(s): E11.40 - Type 2 diabetes mellitus with diabetic neuropathy, unspecified Status: Chronic Assessment and Plan: Accu-Cheks and sliding scale insulin Blood glucose reviewed 07/08 (7) Shingles: Code(s): B02.9 - Zoster without complications Status: Acute Assessment and Plan: Flank pain post shingles infection Pain is well controlled with gabapentin 300 mg q.h.s. Healing scar over the skin due to shingles infection recently Patient received 7 days valacyclovir, completed course of shingle treatment Stable to active lesions Wound consult Plan DVT prophylaxis with Xarelto GI prophylaxis not indicated Code status full code Subjective Date/time seen: 07/08/23 13:57 Interval history: 83-year-old male with congestive heart failure, pulmonary hypertension, chronic kidney disease, type 2 diabetes mellitus, hypertension, chronic anemia, and other comorbidities who presented to the emergency department via private vehicle for evaluation of swelling and is being treated for CHF exacerbation, LINDSEY, anemia. 07/07: Family wondering if this is a short-term or long-term thing with dialysis. They saw General surgery and are eager to get the hernia repaired on outpatient basis. No overnight events noted. No chest pain or shortness of breath. No nausea, vomiting or diarrhea. No fevers or chills. 07/08: in HD, plan for d/c when outpatient care arranged, SNF vs HHC and needs chair at HD Review of Systems Review of Systems: 12 point review of systems was assessed and was neg
[2023-07-08 17:26] LABS: Glucose Point of Care 231 mg/dl (65-105)
[2023-07-08] MEDS: INSULIN ASPART (*BKC) 100 UNITS/ML SUB-Q ×2 (17:29→21:04)
[2023-07-08] MEDS: BUMETANIDE 1 MG TABLET PO (17:29)
[2023-07-08] MEDS: APIXABAN 2.5 MG TABLET PO (21:04)
[2023-07-08] MEDS: GABAPENTIN 300 MG CAPSULE PO (21:04)
[2023-07-08] MEDS: carvediloL 12.5 MG TABLET PO (21:04)
[2023-07-08] MEDS: ACETAMINOPHEN 325 MG TABLET 650 MG PO (21:11)
[2023-07-08] MEDS: FERROUS SULFATE 325 MG TABLET DR 650 MG PO (21:12)
[2023-07-08 22:02] LABS: Glucose Point of Care 241 mg/dl (65-105)
[2023-07-09 05:46] LABS: Basophils Absolute Auto 0.1 K/mm3 (0.0-0.1); Basophils Percent Auto 1.1 % (0.2-1.2); Eosinophils Absolute Auto 0.1 K/mm3 (0-0.3); Eosinophils Percent Auto 1.4 % (0-4.4); Hematocrit 29.3 % (42.0-52.0); Hemoglobin 8.6 g/dL (14.0-18.0); Immature Granulocyte Absolute 0.03 K/mm3 (0.00-0.031); Immature Granulocyte Percent A 0.5 % (0-0.5); Lymphocytes Absolute Auto 0.92 K/mm3 (0.9-3.2); Lymphocytes Percent Auto 16.2 % (18.3-44.2); Mean Corpuscular HGB Conc 29.4 g/dl (32-36); Mean Corpuscular Hemoglobin 26.1 pg (26-34); Mean Corpuscular Volume 89.1 fl (80-100); Mean Platelet Volume 10.7 fl (7.4-10.4); Neutrophils Absolute Auto 3.6 K/mm3 (1.3-6.7); Neutrophils Percent Auto 63.8 % (45.5-73.1); Platelet Count Result 137 k/mm3 (150-375); Red Blood Count 3.29 M/mm3 (4.6-6.20); White Blood Count 5.7 K/mm3 (4.5-10.0)
[2023-07-09 06:00] LABS: Alanine Aminotransferase 8 U/L (6-50); Alkaline Phosphatase 92 U/L (38-126); Anion Gap 8 mmol/L (8-16); Aspartate Amino Transferase 20 U/L (17-59); Blood Urea Nitrogen 64 mg/dL (9-20); Calcium 8.2 mg/dL (8.4-10.2); Carbon Dioxide 24 mmol/L (22-30); Chloride 100 mmol/L (98-107); Estimated CRCL calculation 23 ml/min; Estimated Glomerular Filt Rate 25; Glucose 147 mg/dL (65-110); Sodium 132 mmol/L (137-145)
[2023-07-09 06:21] VITALS: BP 110/74; PULSE 52; RESP 18; TEMP 36.7; O2SAT 98
[2023-07-09 07:20] LABS: Poikilocytosis 1+ (NORMAL)
[2023-07-09 07:21] LABS: Burr Cells 1+ (NORMAL); Ovalocytes 1+ (NORMAL); Schistocytes 1+ (NORMAL)
--- NOTE | 2023-07-09 08:22 | PCPTNOTE ---
Attempted to see patient for PT, however patient was working with OT.
[2023-07-09 08:29] LABS: Glucose Point of Care 151 mg/dl (65-105)
[2023-07-09 08:44] VITALS: PULSE 65
[2023-07-09] MEDS: ATORVASTATIN 10 MG TABLET PO (08:44)
[2023-07-09] MEDS: calcitrioL 0.25 MCG CAPSULE PO (08:44)
[2023-07-09] MEDS: carvediloL 12.5 MG TABLET PO ×2 (08:44→21:07)
[2023-07-09] MEDS: CHOLECALCIFEROL 1,000 UNITS TABLET 2000 UNITS PO (08:44)
[2023-07-09] MEDS: APIXABAN 2.5 MG TABLET PO ×2 (08:44→21:07)
[2023-07-09] MEDS: allopurinoL 100 MG TABLET PO (08:44)
[2023-07-09] MEDS: BUMETANIDE 1 MG TABLET PO ×2 (08:44→17:08)
[2023-07-09 08:52] VITALS: O2SAT 93
[2023-07-09 12:25] LABS: Glucose Point of Care 239 mg/dl (65-105)
[2023-07-09] MEDS: INSULIN ASPART (*BKC) 100 UNITS/ML SUB-Q ×2 (12:34→17:59)
--- NOTE | 2023-07-09 13:12 | PM.PNNEP ---
Progress Note: A&P Assessment and Plan (1) LINDSEY (acute kidney injury): Code(s): N17.9 - Acute kidney failure, unspecified Status: Acute Assessment and Plan: suspect due to chronic prerenal azotemia worsened by need for chronic diuretic therapy evaluation to date: renal ultrasound with left hydronephrosis urine electrolytes are prerenal CPK normal UA unremarkable no further improvement with dopamine so discontinued Urology recommendations noted CT scan results noted.... bilateral kidney masses measuring up to 3.1 cm on the left which may be hemorrhagic cysts or less likely neoplasms. Abdomen MRI without and with contrast is recommended HD likely tomorrow will need outpatient dialysis on discharge -- being arranged... (2) Stage 3b chronic kidney disease: Code(s): N18.32 - Chronic kidney disease, stage 3b Status: Chronic Assessment and Plan: baseline creatinine runs ~ 2.0 - 2.5mg/dl due to biopsy proven hypertensive and diabetic nephrosclerosis his underlying CHF and need for diuretic therapy are playing a role as well (3) Edema: Code(s): R60.9 - Edema, unspecified Status: Acute Assessment and Plan: worsening with subsequent admission off dopamine transitioned to oral diuretics follow clinical exam, daily weights, and I/Os fluid removal with HD as tolerated (4) Congestive heart failure: Code(s): I50.9 - Heart failure, unspecified Status: Chronic Assessment and Plan: suspect acute on chronic diastolic heart failure based on history repeat Echo noted Cardiology following fluid removal with HD to maintain/achieve euvolemia (5) Essential (primary) hypertension: Code(s): I10 - Essential (primary) hypertension Status: Chronic Assessment and Plan: reasonable control follow trend of hemodynamis (6) Iron deficiency anemia: Qualifiers: Iron deficiency anemia type: unspecified iron deficiency Qualified Code(s): D50.9 - Iron deficiency anemia, unspecified Code(s): D50.9 - Iron deficiency anemia, unspecified Status: Acute Assessment and Plan: partly related to LINDSEY and CKD on IV venofer and Epogen while hospitalized PRBC transfusion per protocol he reports he has antibodies so transfusion may be difficult Epogen with HD follow trend of H/H (7) Type 2 diabetes mellitus with diabetic neuropathy: Qualifiers: Diabetes mellitus terminal make up operator insulin use: without retirement use Qualified Code(s): E11.40 - Type 2 diabetes mellitus with diabetic neuropathy, unspecified Code(s): E11.40 - Type 2 diabetes mellitus with diabetic neuropathy, unspecified Status: Chronic Assessment and Plan: follow accu-cheks glycemic control per hospitalists Will continue to follow. Subjective Date/time seen: 07/09/23 13:12 Interval history: Follow-up for acute kidney injury/acute renal failure on chronic kidney disease. Tolerated dialysis yesterday without any issues or problems; no apparent distress noted; breathing/respiratory status stable if not better; swelling/edema appears a bit better as well; no other issues/events overnight or earlier this morning. Exam Narrative: General: WD/WN male in NAD Heart: normal S1 and S2; IRRR, no rub Lungs: clear anteriorly; decreased at bases Abdomen: soft, nontender, nondistended, positive bowel sounds Extremities: no cyanosis or clubbing; 2+ edema Skin: no rash Objective Data Vital Signs Vital Signs: Vital Signs Temp Pulse Resp BP Pulse Ox O2 Del Method 07/09/23 13:07 98.2 F 62 20 116/63 98 07/09/23 10:00 97.9 F 59 L 16 103/50 L 98 07/09/23 08:52 93 Room Air 07/09/23 08:44 65 07/09/23 06:21 98.1 F 52 L 18 110/74 98 Intake/Output Intake/Output: Intake & Output 07/07/23 07/08/23 07/09/23 07/10/23 23:59 23:59 23:59 23:59 Intake
--- NOTE | 2023-07-09 13:12 | P.PNNP_ITS ---
Progress Note: A&P Assessment and Plan (1) LINDSEY (acute kidney injury): Code(s): N17.9 - Acute kidney failure, unspecified Status: Acute Assessment and Plan: * suspect due to chronic prerenal azotemia worsened by need for chronic diuretic therapy * evaluation to date: * renal ultrasound with left hydronephrosis * urine electrolytes are prerenal * CPK normal * UA unremarkable * no further improvement with dopamine so discontinued * Urology recommendations noted * CT scan results noted.... bilateral kidney masses measuring up to 3.1 cm on the left which may be hemorrhagic cysts or less likely neoplasms. Abdomen MRI without and with contrast is recommended * HD likely tomorrow * will need outpatient dialysis on discharge -- being arranged... (2) Stage 3b chronic kidney disease: Code(s): N18.32 - Chronic kidney disease, stage 3b Status: Chronic Assessment and Plan: * baseline creatinine runs ~ 2.0 - 2.5mg/dl * due to biopsy proven hypertensive and diabetic nephrosclerosis * his underlying CHF and need for diuretic therapy are playing a role as well (3) Edema: Code(s): R60.9 - Edema, unspecified Status: Acute Assessment and Plan: * worsening with subsequent admission * off dopamine * transitioned to oral diuretics * follow clinical exam, daily weights, and I/Os * fluid removal with HD as tolerated (4) Congestive heart failure: Code(s): I50.9 - Heart failure, unspecified Status: Chronic Assessment and Plan: * suspect acute on chronic diastolic heart failure based on history * repeat Echo noted * Cardiology following * fluid removal with HD to maintain/achieve euvolemia (5) Essential (primary) hypertension: Code(s): I10 - Essential (primary) hypertension Status: Chronic Assessment and Plan: * reasonable control * follow trend of hemodynamis (6) Iron deficiency anemia: Qualifiers: Iron deficiency anemia type: unspecified iron deficiency Qualified Code(s): D50.9 - Iron deficiency anemia, unspecified Code(s): D50.9 - Iron deficiency anemia, unspecified Status: Acute Assessment and Plan: * partly related to LINDSEY and CKD * on IV venofer and Epogen while hospitalized * PRBC transfusion per protocol * he reports he has antibodies so transfusion may be difficult * Epogen with HD * follow trend of H/H (7) Type 2 diabetes mellitus with diabetic neuropathy: Qualifiers: Diabetes mellitus intermission coordinator insulin use: without intermission coordinator use Qualified Code(s): E11.40 - Type 2 diabetes mellitus with diabetic neuropathy, unspecified Code(s): E11.40 - Type 2 diabetes mellitus with diabetic neuropathy, unspecified Status: Chronic Assessment and Plan: * follow accu-cheks * glycemic control per hospitalists Will continue to follow. Subjective Date/time seen: 07/09/23 13:12 Interval history: Follow-up for acute kidney injury/acute renal failure on chronic kidney disease. Tolerated dialysis yesterday without any issues or problems; no apparent distre ss noted; breathing/respiratory status stable if not better; swelling/edema appears a bit better as well; no other issues/events overnight or earlier this morning. Exam Narrative: General: WD/WN male in NAD Heart: normal S1 and S2; IRRR, no rub Lungs: clear anteriorly; decreased at bases Abdomen: soft, nontender, nondistended, positive bowel sounds E
[2023-07-09 14:00] VITALS: BP 103/50; PULSE 59; RESP 16; TEMP 36.6; O2SAT 98
--- NOTE | 2023-07-09 17:11 | PM.IMPN ---
Progress Note: A&P Assessment and Plan (1) Acute on chronic kidney failure: Code(s): N17.9 - Acute kidney failure, unspecified; N18.9 - Chronic kidney disease, unspecified Status: Acute Assessment and Plan: likely d/t hypervolemia from volume overload with significant bilateral lower extremity edema with mild congestive changes on chest x-ray, possible venous stasis edema Venous Doppler shows no DVT He was on metolazone recently for this swelling without benefit. Appreciate cardiology recommendations Pt is on iv bumex started by cardiology with careful watching of his kidney function Echo shows diastolic heart failure HD started on 07/05. Discharge planning soon when nephrology arranges outpatient follow up and stabilizes patient Plan for SNF and HD arrangements for discharge Continues to make some urine (2) Chronic anemia: Code(s): D64.9 - Anemia, unspecified Status: Acute Assessment and Plan: Suspecting acute blood loss anemia with underlying chronic anemia secondary to chronic renal failure Patient is on Xarelto for AFib on that was held for procedure Hemoglobin 10.August but chronically low in the past Hgb 7.0 on admission and trended down to 6.9. Transfused 1 pack RBC 06/28 Iron 19 with normal TIBC and TSat 6% c/w iron deficiency Pt had venofer and Epogen per underground supervisor As per GI, pt had egd and colonoscopy recently, hb is stable no occult bleeding no need for any intervention Hgb stable in the 7-8 range now. Continue iron Check B12/Folate (3) Fever: Qualifiers: Fever type: unspecified Qualified Code(s): R50.9 - Fever, unspecified Code(s): R50.9 - Fever, unspecified Status: Inactive Assessment and Plan: Patient with low-grade fever overnight. Could be atelectasis. He does have left lower quadrant pain that seems to be unrelated to his shingles area but could be referred pain. Consider diverticulitis. White count is normal. Will check UA and chest x-ray. Check CT of the abdomen pelvis. Check COVID. (4) Atrial fibrillation: Code(s): I48.91 - Unspecified atrial fibrillation Status: Acute (5) Acute on chronic diastolic CHF (congestive heart failure): Code(s): I50.33 - Acute on chronic diastolic (congestive) heart failure Status: Acute Assessment and Plan: Echo showing EF 60-65%, diastolic dysfunction,enlarged RV with reduced RV fxn and mod-severe biatrial enlargement; moderate pHTN noted. EKG showing AFib and (new) Rt BBB. Acute on chronic diastolic CHF with probable right-sided failure. He continues to have significant edema but feels this is improved with HD Dick hose ordered. Continue Bumex. (6) Shingles: Code(s): B02.9 - Zoster without complications Status: Acute Assessment and Plan: Flank pain post shingles infection Pain is well controlled with gabapentin 300 mg q.h.s. Patient received 7 days valacyclovir and completed course Stable but with open lesions Continue routine dressing care (7) Type 2 diabetes mellitus with diabetic neuropathy: Qualifiers: Diabetes mellitus fpc insulin use: without terminal operations supervisor use Qualified Code(s): E11.40 - Type 2 diabetes mellitus with diabetic neuropathy, unspecified Code(s): E11.40 - Type 2 diabetes mellitus with diabetic neuropathy, unspecified Status: Chronic Assessment and Plan: The patient's blood glucose was reviewed on 07/09 Glucose remains reasonably controlled. Continue AccuCheks covering with sliding scale. Hypoglycemia protocol available as needed. Continue to monitor (8) Electrolyte abnormality: Code(s): E87.8 - Other disorders of electrolyte and fluid balance, not elsewhere classified Status: Acute Assessment and Plan: Potassium remains normal. Sodium dropped to 128 that has improved since starting dialysis. Follow (9) Thrombocytopenia: Code(s):
[2023-07-09 17:45] LABS: Glucose Point of Care 205 mg/dl (65-105)
[2023-07-09 21:07] VITALS: PULSE 62
[2023-07-09] MEDS: GABAPENTIN 300 MG CAPSULE PO (21:08)
[2023-07-09 21:58] LABS: Influenza A QL RT-PCR Negative (Negative); Influenza B QL RT-PCR Negative (Negative); RSV RNA, RT-PCR Negative (Negative); SARS-CoV-2 RNA PCR Negative (Negative)
[2023-07-09 22:07] VITALS: BP 116/63; PULSE 62; RESP 20; TEMP 36.8; O2SAT 98
[2023-07-10] VITALS (24 sets, daily range): BP systolic 106–154; BP diastolic 46–79; PULSE 45–72; RESP 18–20; TEMP 35.3–37.2; O2SAT 97–98
[2023-07-10 04:07] LABS: Appearance Urine Clear (Clear); Bilirubin Urine Negative (Negative); Blood Urine Negative (Negative); Color Urine Yellow (Yellow); Glucose Urine UA Negative (Negative); Ketones Urine Negative (Negative); Leukocyte Esterase Ur Negative LEU/UL (Negative); Nitrate Urine Negative (Negative); Protein Urine Negative (Negative); Specific Grav Ur 1.011 (1.001-1.035); Urobilinogen Urine 0.2 mg/dL (<2.0)
[2023-07-10 04:35] LABS: Add Urine Microscopic? NO
[2023-07-10 05:55] LABS: Basophils Absolute Auto 0.1 K/mm3 (0.0-0.1); Eosinophils Absolute Auto 0.1 K/mm3 (0-0.3); Eosinophils Percent Auto 1.8 % (0-4.4); Hematocrit 29.6 % (42.0-52.0); Hemoglobin 8.1 g/dL (14.0-18.0); Immature Granulocyte Absolute 0.03 K/mm3 (0.00-0.031); Immature Granulocyte Percent A 0.6 % (0-0.5); Lymphocytes Absolute Auto 0.78 K/mm3 (0.9-3.2); Mean Corpuscular HGB Conc 27.4 g/dl (32-36); Mean Corpuscular Volume 95.2 fl (80-100); Mean Platelet Volume 11.4 fl (7.4-10.4); Monocytes Absolute Auto 0.7 K/mm3 (0.1-0.6); Neutrophils Absolute Auto 3.2 K/mm3 (1.3-6.7); Neutrophils Percent Auto 66.6 % (45.5-73.1); Platelet Count Result 144 k/mm3 (150-375); Red Blood Count 3.11 M/mm3 (4.6-6.20); Red Cell Distribution Width 25.2 % (11.5-14.5); White Blood Count 4.9 K/mm3 (4.5-10.0)
[2023-07-10 06:09] LABS: Glucose Point of Care 186 mg/dl (65-105)
[2023-07-10 07:48] LABS: Folic Acid 12.4 ng/mL (2.76->20)
[2023-07-10 08:35] LABS: Hypochromasia 1+ (NORMAL); Schistocytes Rare (NORMAL); Target Cells 1+ (NORMAL)
[2023-07-10 08:36] LABS: Burr Cells 2+ (NORMAL); Poikilocytosis 1+ (NORMAL)
[2023-07-10 08:50] LABS: Glucose Point of Care 152 mg/dl (65-105)
[2023-07-10] MEDS: MIDODRINE HCL 2.5 MG TABLET 5 MG PO (08:56)
[2023-07-10] MEDS: ALBUMIN HUMAN 25% 12.5 GM/50ML 50 ML IVPB ×3 (09:19→11:34)
[2023-07-10 09:39] LABS: Alanine Aminotransferase 12 U/L (6-50); Albumin Level 2.6 g/dL (3.5-5.1); Alkaline Phosphatase 97 U/L (38-126); Anion Gap 13 mmol/L (8-16); Aspartate Amino Transferase 29 U/L (17-59); Bilirubin,Total 0.9 mg/dL (0.2-1.3); Blood Urea Nitrogen 83 mg/dL (9-20); Calcium 8.1 mg/dL (8.4-10.2); Carbon Dioxide 17 mmol/L (22-30); Chloride 103 mmol/L (98-107); Estimated CRCL calculation 21 ml/min; Estimated Glomerular Filt Rate 23; Glucose 149 mg/dL (65-110); Potassium 4.7 mmol/L (3.4-5.0); Sodium 133 mmol/L (137-145)
--- NOTE | 2023-07-10 09:59 | PCPTNOTE ---
Attempted to see patient for PT, however patient was out of the room for dialysis.
--- NOTE | 2023-07-10 10:15 | PM.PNNEP ---
Progress Note: A&P Assessment and Plan (1) LINDSEY (acute kidney injury): Code(s): N17.9 - Acute kidney failure, unspecified Status: Acute Assessment and Plan: suspect due to chronic prerenal azotemia worsened by need for chronic diuretic therapy evaluation to date: renal ultrasound with left hydronephrosis urine electrolytes are prerenal CPK normal UA unremarkable no further improvement with dopamine so discontinued Urology recommendations noted CT scan results noted.... bilateral kidney masses measuring up to 3.1 cm on the left which may be hemorrhagic cysts or less likely neoplasms. Abdomen MRI without and with contrast is recommended HD today will need outpatient dialysis on discharge -- being arranged... (2) Stage 3b chronic kidney disease: Code(s): N18.32 - Chronic kidney disease, stage 3b Status: Chronic Assessment and Plan: baseline creatinine runs ~ 2.0 - 2.5mg/dl due to biopsy proven hypertensive and diabetic nephrosclerosis his underlying CHF and need for diuretic therapy are playing a role as well (3) Edema: Code(s): R60.9 - Edema, unspecified Status: Acute Assessment and Plan: worsening with subsequent admission off dopamine transitioned to oral diuretics follow clinical exam, daily weights, and I/Os fluid removal with HD as tolerated (4) Congestive heart failure: Code(s): I50.9 - Heart failure, unspecified Status: Chronic Assessment and Plan: suspect acute on chronic diastolic heart failure based on history repeat Echo noted Cardiology following fluid removal with HD to maintain/achieve euvolemia (5) Essential (primary) hypertension: Code(s): I10 - Essential (primary) hypertension Status: Chronic Assessment and Plan: reasonable control follow trend of hemodynamis (6) Iron deficiency anemia: Qualifiers: Iron deficiency anemia type: unspecified iron deficiency Qualified Code(s): D50.9 - Iron deficiency anemia, unspecified Code(s): D50.9 - Iron deficiency anemia, unspecified Status: Acute Assessment and Plan: partly related to LINDSEY and CKD on IV venofer and Epogen while hospitalized PRBC transfusion per protocol he reports he has antibodies so transfusion may be difficult Epogen with HD follow trend of H/H (7) Type 2 diabetes mellitus with diabetic neuropathy: Qualifiers: Diabetes mellitus long wall shear operator insulin use: without group home use Qualified Code(s): E11.40 - Type 2 diabetes mellitus with diabetic neuropathy, unspecified Code(s): E11.40 - Type 2 diabetes mellitus with diabetic neuropathy, unspecified Status: Chronic Assessment and Plan: follow accu-cheks glycemic control per hospitalists Will continue to follow. Subjective Date/time seen: 07/10/23 10:15 Interval history: Follow-up for acute kidney injury/acute renal failure on chronic kidney disease -- now requiring hemodialysis. Tolerating dialysis treatment at the time of my visit (seen on HD at 10:08AM); no new issues or problems to report at this time; no apparent distress noted; overall, feels reasonably well; issues with abdominal pain yesterday so CT scan done with results noted; RUQ ultrasound done earlier this AM with results noted. Exam Narrative: General: WD/WN male in NAD Heart: normal S1 and S2; IRRR, no rub Lungs: clear anteriorly; decreased at bases Abdomen: soft, nontender, nondistended, positive bowel sounds Extremities: no cyanosis or clubbing; 1 - 2+ edema Skin: no modules Objective Data Vital Signs Vital Signs: Vital Signs Temp Pulse Resp BP Pulse Ox 07/10/23 10:00 54 L 134/70 07/10/23 09:45 51 L 129/79 07/10/23 09:14 47 L 126/69 07/10/23 09:05 98.0 F 54 L 18 126/57 L 07/10/23 06:00 97.7 F 55 L 18 107/56 L 97 07/09/23 22:07 98.2 F 62 20 116/63 98
--- NOTE | 2023-07-10 10:15 | P.PNNP_ITS ---
Progress Note: A&P Assessment and Plan (1) LINDSEY (acute kidney injury): Code(s): N17.9 - Acute kidney failure, unspecified Status: Acute Assessment and Plan: * suspect due to chronic prerenal azotemia worsened by need for chronic diuretic therapy * evaluation to date: * renal ultrasound with left hydronephrosis * urine electrolytes are prerenal * CPK normal * UA unremarkable * no further improvement with dopamine so discontinued * Urology recommendations noted * CT scan results noted.... bilateral kidney masses measuring up to 3.1 cm on the left which may be hemorrhagic cysts or less likely neoplasms. Abdomen MRI without and with contrast is recommended * HD today * will need outpatient dialysis on discharge -- being arranged... (2) Stage 3b chronic kidney disease: Code(s): N18.32 - Chronic kidney disease, stage 3b Status: Chronic Assessment and Plan: * baseline creatinine runs ~ 2.0 - 2.5mg/dl * due to biopsy proven hypertensive and diabetic nephrosclerosis * his underlying CHF and need for diuretic therapy are playing a role as well (3) Edema: Code(s): R60.9 - Edema, unspecified Status: Acute Assessment and Plan: * worsening with subsequent admission * off dopamine * transitioned to oral diuretics * follow clinical exam, daily weights, and I/Os * fluid removal with HD as tolerated (4) Congestive heart failure: Code(s): I50.9 - Heart failure, unspecified Status: Chronic Assessment and Plan: * suspect acute on chronic diastolic heart failure based on history * repeat Echo noted * Cardiology following * fluid removal with HD to maintain/achieve euvolemia (5) Essential (primary) hypertension: Code(s): I10 - Essential (primary) hypertension Status: Chronic Assessment and Plan: * reasonable control * follow trend of hemodynamis (6) Iron deficiency anemia: Qualifiers: Iron deficiency anemia type: unspecified iron deficiency Qualified Code(s): D50.9 - Iron deficiency anemia, unspecified Code(s): D50.9 - Iron deficiency anemia, unspecified Status: Acute Assessment and Plan: * partly related to LINDSEY and CKD * on IV venofer and Epogen while hospitalized * PRBC transfusion per protocol * he reports he has antibodies so transfusion may be difficult * Epogen with HD * follow trend of H/H (7) Type 2 diabetes mellitus with diabetic neuropathy: Qualifiers: Diabetes mellitus terminal make up operator insulin use: without terminal make up operator use Qualified Code(s): E11.40 - Type 2 diabetes mellitus with diabetic neuropathy, unspecified Code(s): E11.40 - Type 2 diabetes mellitus with diabetic neuropathy, unspecified Status: Chronic Assessment and Plan: * follow accu-cheks * glycemic control per hospitalists Will continue to follow. Subjective Date/time seen: 07/10/23 10:15 Interval history: Follow-up for acute kidney injury/acute renal failure on chronic kidney disease -- now requiring hemodialysis. Tolerating dialysis treatment at the time of my visit (seen on HD at 10:08AM); no new issues or problems to report at this time; no apparent distress noted; ov farheen, feels reasonably well; issues with abdominal pain yesterday so CT scan done with results noted; RUQ ultrasound done earlier this AM with results noted. Exam Narrative: General: WD/WN male in NAD Heart: normal S1 and S2; IRRR, no rub Lungs: clear anter
[2023-07-10 14:38] LABS: Glucose Point of Care 146 mg/dl (65-105)
[2023-07-10] MEDS: APIXABAN 2.5 MG TABLET PO ×2 (14:41→20:53)
[2023-07-10] MEDS: allopurinoL 100 MG TABLET PO (14:41)
[2023-07-10] MEDS: carvediloL 12.5 MG TABLET PO ×2 (14:42→20:52)
[2023-07-10] MEDS: ATORVASTATIN 10 MG TABLET PO (14:42)
[2023-07-10] MEDS: CHOLECALCIFEROL 1,000 UNITS TABLET 2000 UNITS PO (14:42)
--- NOTE | 2023-07-10 15:41 | PM.IMPN ---
Progress Note: A&P Assessment and Plan (1) Acute on chronic kidney failure: Code(s): N17.9 - Acute kidney failure, unspecified; N18.9 - Chronic kidney disease, unspecified Status: Acute Assessment and Plan: likely d/t hypervolemia from volume overload with significant bilateral lower extremity edema with mild congestive changes on chest x-ray, possible venous stasis edema Venous Doppler shows no DVT He was on metolazone recently for this swelling without benefit. Appreciate cardiology recommendations Pt was on iv bumex but now changed to oral Echo shows diastolic heart failure HD started on 07/05. Plan for SNF and HD arrangements for discharge Continues to make some urine (2) Chronic anemia: Code(s): D64.9 - Anemia, unspecified Status: Acute Assessment and Plan: Suspecting acute blood loss anemia with underlying chronic anemia secondary to chronic renal failure Patient was on Xarelto for AFib that was held for procedure Hemoglobin 10.August but chronically low in the past Hgb 7.0 on admission and trended down to 6.9. Transfused 1 pack RBC 06/28 Iron 19 with normal TIBC and TSat 6% c/w iron deficiency. B12/Folate okay. Pt had venofer and Epogen per editor map As per GI, pt had egd and colonoscopy recently, hb is stable no occult bleeding no need for any intervention Hgb stable in the 7-8 range now. Continue iron Follow (3) Fever: Qualifiers: Fever type: unspecified Qualified Code(s): R50.9 - Fever, unspecified Code(s): R50.9 - Fever, unspecified Status: Inactive Assessment and Plan: Patient with low-grade fever overnight. Could be atelectasis. He does have left lower quadrant pain but CT scan showing cholelithiasis, 3.4cm left renal mass and anasarca. No evidence of diverticulitis. White count is normal. UA clear. CXR showing mild interstial edema. COVID negative. No further fevers. RUQ US showing GB wall thickening felt related to fluid overload or right heart failure then acute cholecystitis. Follow (4) Atrial fibrillation: Code(s): I48.91 - Unspecified atrial fibrillation Status: Acute Assessment and Plan: EKG showing AFib. HR controlled. Eliquis resumed (5) Acute on chronic diastolic CHF (congestive heart failure): Code(s): I50.33 - Acute on chronic diastolic (congestive) heart failure Status: Acute Assessment and Plan: Echo showing EF 60-65%, diastolic dysfunction,enlarged RV with reduced RV fxn and mod-severe biatrial enlargement; moderate pHTN noted. EKG showing AFib and (new) Rt BBB. Acute on chronic diastolic CHF with probable right-sided failure. He continues to have significant edema but feels this is improved with HD Continue HD to control fluid status Continue Bumex. (6) Shingles: Code(s): B02.9 - Zoster without complications Status: Acute Assessment and Plan: Flank pain post shingles infection Pain is well controlled with gabapentin 300 mg q.h.s. Patient received 7 days valacyclovir and completed course Stable but with open lesions Continue routine dressing care (7) Type 2 diabetes mellitus with diabetic neuropathy: Qualifiers: Diabetes mellitus extermination supervisor insulin use: without extermination supervisor use Qualified Code(s): E11.40 - Type 2 diabetes mellitus with diabetic neuropathy, unspecified Code(s): E11.40 - Type 2 diabetes mellitus with diabetic neuropathy, unspecified Status: Chronic Assessment and Plan: The patient's blood glucose was reviewed on 07/10 Glucose remains reasonably well controlled. Continue AccuCheks covering with sliding scale. Hypoglycemia protocol available as needed. Continue to monitor (8) Electrolyte abnormality: Code(s): E87.8 - Other disorders of electrolyte and fluid balance, not elsewhere classified Status: Acute Assessment and Plan: Potassium remains normal. Sodium drop
[2023-07-10] MEDS: BUMETANIDE 1 MG TABLET 2 MG PO (16:53)
[2023-07-10 17:14] LABS: Glucose Point of Care 277 mg/dl (65-105)
[2023-07-10] MEDS: INSULIN ASPART (*BKC) 100 UNITS/ML SUB-Q ×2 (17:28→20:45)
[2023-07-10] MEDS: FERROUS SULFATE 325 MG TABLET DR 650 MG PO (20:52)
[2023-07-10] MEDS: GABAPENTIN 300 MG CAPSULE PO (20:52)
[2023-07-11] VITALS (23 sets, daily range): BP systolic 97–128; BP diastolic 51–72; PULSE 43–79; RESP 16–21; TEMP 36.6–37.7; O2SAT 96–100
[2023-07-11 05:48] LABS: Basophils Absolute Auto 0.1 K/mm3 (0.0-0.1); Eosinophils Absolute Auto 0.1 K/mm3 (0-0.3); Eosinophils Percent Auto 1.2 % (0-4.4); Hematocrit 28.5 % (42.0-52.0); Immature Granulocyte Absolute 0.02 K/mm3 (0.00-0.031); Immature Granulocyte Percent A 0.4 % (0-0.5); Lymphocytes Absolute Auto 0.83 K/mm3 (0.9-3.2); Lymphocytes Percent Auto 16.9 % (18.3-44.2); Mean Corpuscular HGB Conc 28.1 g/dl (32-36); Mean Corpuscular Hemoglobin 25.7 pg (26-34); Mean Corpuscular Volume 91.6 fl (80-100); Mean Platelet Volume 11.9 fl (7.4-10.4); Monocytes Absolute Auto 0.8 K/mm3 (0.1-0.6); Monocytes Percent Auto 16.1 % (2.6-8.5); Neutrophils Absolute Auto 3.2 K/mm3 (1.3-6.7); Neutrophils Percent Auto 64.4 % (45.5-73.1); Platelet Count Result 141 k/mm3 (150-375); Red Blood Count 3.11 M/mm3 (4.6-6.20); Red Cell Distribution Width 25.1 % (11.5-14.5); White Blood Count 4.9 K/mm3 (4.5-10.0)
[2023-07-11 06:25] LABS: Alanine Aminotransferase 11 U/L (6-50); Albumin Level 2.8 g/dL (3.5-5.1); Alkaline Phosphatase 86 U/L (38-126); Anion Gap 6 mmol/L (8-16); Aspartate Amino Transferase 36 U/L (17-59); Blood Urea Nitrogen 62 mg/dL (9-20); Carbon Dioxide 24 mmol/L (22-30); Chloride 104 mmol/L (98-107); Estimated CRCL calculation 28 ml/min; Estimated Glomerular Filt Rate 32; Glucose 150 mg/dL (65-110); Potassium 4.6 mmol/L (3.4-5.0); Sodium 134 mmol/L (137-145)
[2023-07-11 06:37] LABS: Acanthocytes 1+ (NORMAL); Burr Cells 2+ (NORMAL); Poikilocytosis 1+ (NORMAL); Schistocytes Rare (NORMAL)
[2023-07-11 06:38] LABS: Anisocytosis 1+ (NORMAL); Ovalocytes 1+ (NORMAL)
[2023-07-11] MEDS: MIDODRINE HCL 2.5 MG TABLET 5 MG PO (07:51)
[2023-07-11] MEDS: ALBUMIN HUMAN 25% 12.5 GM/50ML 100 ML 100 GM (08:23)
[2023-07-11 08:42] LABS: Glucose Point of Care 277 mg/dl (65-105)
--- NOTE | 2023-07-11 09:04 | PCNWS ---
Weekly nutritional screen. Patient is tolerating current diet with adequate intake. No weight loss reported. No nutritional needs at this time.
--- NOTE | 2023-07-11 09:21 | PCPTNOTE ---
Attempted to see patient for PT, however unable to due to patient out of the room for dialysis.
--- NOTE | 2023-07-11 10:14 | PCOTNOTE ---
The patient treatment was not able to be completed. Patient was out of the room for HD. Will plan to continue treatment per plan of care.
--- NOTE | 2023-07-11 10:15 | P.PNNP_ITS ---
Progress Note: A&P Assessment and Plan (1) LINDSEY (acute kidney injury): Code(s): N17.9 - Acute kidney failure, unspecified Status: Acute Assessment and Plan: * suspect due to chronic prerenal azotemia worsened by need for chronic diuretic therapy * evaluation to date: * renal ultrasound with left hydronephrosis * urine electrolytes are prerenal * CPK normal * UA unremarkable * no further improvement with dopamine so discontinued * Urology recommendations noted * CT scan results noted.... bilateral kidney masses measuring up to 3.1 cm on the left which may be hemorrhagic cysts or less likely neoplasms. Abdomen MRI without and with contrast is recommended * unable to do MRI (patient has hardware) * HD today * will need outpatient dialysis on discharge -- outpatient schedule finalized for M//F at [facility] (2) Stage 3b chronic kidney disease: Code(s): N18.32 - Chronic kidney disease, stage 3b Status: Chronic Assessment and Plan: * baseline creatinine runs ~ 2.0 - 2.5mg/dl * due to biopsy proven hypertensive and diabetic nephrosclerosis * his underlying CHF and need for diuretic therapy are playing a role as well (3) Edema: Code(s): R60.9 - Edema, unspecified Status: Acute Assessment and Plan: * worsening with subsequent admission * off dopamine * transitioned to oral diuretics * follow clinical exam, daily weights, and I/Os * fluid removal with HD as tolerated (4) Congestive heart failure: Code(s): I50.9 - Heart failure, unspecified Status: Chronic Assessment and Plan: * suspect acute on chronic diastolic heart failure based on history * repeat Echo noted * Cardiology following * fluid removal with HD to maintain/achieve euvolemia (5) Essential (primary) hypertension: Code(s): I10 - Essential (primary) hypertension Status: Chronic Assessment and Plan: * reasonable control * follow trend of hemodynamis (6) Iron deficiency anemia: Qualifiers: Iron deficiency anemia type: unspecified iron deficiency Qualified Code(s): D50.9 - Iron deficiency anemia, unspecified Code(s): D50.9 - Iron deficiency anemia, unspecified Status: Acute Assessment and Plan: * partly related to LINDSEY and CKD * on IV venofer while hospitalized * PRBC transfusion per protocol * he reports he has antibodies so transfusion may be difficult * Epogen with HD * follow trend of H/H (7) Type 2 diabetes mellitus with diabetic neuropathy: Qualifiers: Diabetes mellitus mcfp insulin use: without long term care administrator use Qualified Code(s): E11.40 - Type 2 diabetes mellitus with diabetic neuropathy, unspecified Code(s): E11.40 - Type 2 diabetes mellitus with diabetic neuropathy, unspecified Status: Chronic Assessment and Plan: * follow accu-cheks * glycemic control per hospitalists Not opposed to discharge from renal perspective if otherwise medically stable and outpatient disposition + dialysis treatment time/schedule finalized. Will continue to follow. Subjective Date/time seen: 07/11/23 10:15 Interval history: Follow-up for acute kidney injury/acute renal failure on chronic kidney disease -- now requiring hemodialysis. Tolerating dialysis treatment at the time of my visit -- no apparent distress noted; tolerated dialysis treatment yesterday as well without issue or problems; no events overnight or earlier this morning; no other complaints to report
--- NOTE | 2023-07-11 10:15 | PM.PNNEP ---
Progress Note: A&P Assessment and Plan (1) LINDSEY (acute kidney injury): Code(s): N17.9 - Acute kidney failure, unspecified Status: Acute Assessment and Plan: suspect due to chronic prerenal azotemia worsened by need for chronic diuretic therapy evaluation to date: renal ultrasound with left hydronephrosis urine electrolytes are prerenal CPK normal UA unremarkable no further improvement with dopamine so discontinued Urology recommendations noted CT scan results noted.... bilateral kidney masses measuring up to 3.1 cm on the left which may be hemorrhagic cysts or less likely neoplasms. Abdomen MRI without and with contrast is recommended unable to do MRI (patient has hardware) HD today will need outpatient dialysis on discharge -- outpatient schedule finalized for M/W/F at [facility] (2) Stage 3b chronic kidney disease: Code(s): N18.32 - Chronic kidney disease, stage 3b Status: Chronic Assessment and Plan: baseline creatinine runs ~ 2.0 - 2.5mg/dl due to biopsy proven hypertensive and diabetic nephrosclerosis his underlying CHF and need for diuretic therapy are playing a role as well (3) Edema: Code(s): R60.9 - Edema, unspecified Status: Acute Assessment and Plan: worsening with subsequent admission off dopamine transitioned to oral diuretics follow clinical exam, daily weights, and I/Os fluid removal with HD as tolerated (4) Congestive heart failure: Code(s): I50.9 - Heart failure, unspecified Status: Chronic Assessment and Plan: suspect acute on chronic diastolic heart failure based on history repeat Echo noted Cardiology following fluid removal with HD to maintain/achieve euvolemia (5) Essential (primary) hypertension: Code(s): I10 - Essential (primary) hypertension Status: Chronic Assessment and Plan: reasonable control follow trend of hemodynamis (6) Iron deficiency anemia: Qualifiers: Iron deficiency anemia type: unspecified iron deficiency Qualified Code(s): D50.9 - Iron deficiency anemia, unspecified Code(s): D50.9 - Iron deficiency anemia, unspecified Status: Acute Assessment and Plan: partly related to LINDSEY and CKD on IV venofer while hospitalized PRBC transfusion per protocol he reports he has antibodies so transfusion may be difficult Epogen with HD follow trend of H/H (7) Type 2 diabetes mellitus with diabetic neuropathy: Qualifiers: Diabetes mellitus care home insulin use: without intermodal dispatcher use Qualified Code(s): E11.40 - Type 2 diabetes mellitus with diabetic neuropathy, unspecified Code(s): E11.40 - Type 2 diabetes mellitus with diabetic neuropathy, unspecified Status: Chronic Assessment and Plan: follow accu-cheks glycemic control per hospitalists Not opposed to discharge from renal perspective if otherwise medically stable and outpatient disposition + dialysis treatment time/schedule finalized. Will continue to follow. Subjective Date/time seen: 07/11/23 10:15 Interval history: Follow-up for acute kidney injury/acute renal failure on chronic kidney disease -- now requiring hemodialysis. Tolerating dialysis treatment at the time of my visit -- no apparent distress noted; tolerated dialysis treatment yesterday as well without issue or problems; no events overnight or earlier this morning; no other complaints to report currently. Exam Narrative: General: WD/WN male in NAD Heart: normal S1 and S2; IRRR, no rub Lungs: clear anteriorly; decreased at bases Abdomen: soft, nontender, nondistended, positive bowel sounds Extremities: no cyanosis or clubbing; 1 - 2+ edema Skin: warm and dry Objective Data Vital Signs Vital Signs: Vital Signs Temp Pulse Resp BP Pulse Ox O2 Del Method 07/11/23 10:15 54 L 118/51 L 07/11/23 09:45 49 L 119/65
[2023-07-11] MEDS: EPOETIN ALFA-EPBX 10,000 UNITS/ML VIAL 10000 UNITS IV PUSH (10:55)
[2023-07-11] MEDS: HEPARIN SODIUM 1,000 UNITS/ML VIAL 6000 UNITS IV PUSH (11:37)
--- NOTE | 2023-07-11 12:04 | PC.NURSE ---
Pt returned to room from dialysis at this time.
[2023-07-11] MEDS: MAGNESIUM OXIDE 400 MG TABLET PO (12:11)
[2023-07-11] MEDS: allopurinoL 100 MG TABLET PO (12:11)
[2023-07-11] MEDS: CHOLECALCIFEROL 1,000 UNITS TABLET 2000 UNITS PO (12:11)
[2023-07-11] MEDS: APIXABAN 2.5 MG TABLET PO ×2 (12:11→21:32)
[2023-07-11] MEDS: BUMETANIDE 1 MG TABLET 2 MG PO ×2 (12:11→17:38)
[2023-07-11] MEDS: carvediloL 12.5 MG TABLET PO ×2 (12:12→21:32)
[2023-07-11] MEDS: ATORVASTATIN 10 MG TABLET PO (12:12)
[2023-07-11] MEDS: calcitrioL 0.25 MCG CAPSULE PO (12:15)
[2023-07-11 12:28] LABS: Glucose Point of Care 132 mg/dl (65-105)
[2023-07-11 17:34] LABS: Glucose Point of Care 269 mg/dl (65-105)
[2023-07-11] MEDS: INSULIN ASPART (*BKC) 100 UNITS/ML SUB-Q (17:40)
--- NOTE | 2023-07-11 18:25 | PM.IMPN ---
Progress Note: A&P Assessment and Plan (1) Acute on chronic kidney failure: Code(s): N17.9 - Acute kidney failure, unspecified; N18.9 - Chronic kidney disease, unspecified Status: Acute Assessment and Plan: Patient presents with increasing leg edema likely d/t hypervolemia from volume overload with significant bilateral lower extremity edema with mild congestive changes on chest x-ray, possible venous stasis edema Venous Doppler shows no DVT He was on metolazone without benefit. Appreciate cardiology recommendations Pt was on iv bumex but now changed to oral Echo shows diastolic heart failure HD started on 07/05. Plan for SNF and HD arrangements for discharge Continues to make some urine (2) Chronic anemia: Code(s): D64.9 - Anemia, unspecified Status: Acute Assessment and Plan: Suspecting acute blood loss anemia with underlying chronic anemia secondary to chronic renal failure Patient was on Xarelto for AFib that was held for procedure Hemoglobin 10.August but chronically low in the past Hgb 7.0 on admission and trended down to 6.9. Transfused 1 pack RBC 06/28 Iron 19 with normal TIBC and TSat 6% c/w iron deficiency. B12/Folate okay. 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 Continue iron Changed to Eliquis and tolerating Follow (3) Fever: Qualifiers: Fever type: unspecified Qualified Code(s): R50.9 - Fever, unspecified Code(s): R50.9 - Fever, unspecified Status: Inactive Assessment and Plan: Patient with low-grade fever. Could be atelectasis. He does have left lower quadrant pain but CT scan showing cholelithiasis, 3.4cm left renal mass and anasarca. No evidence of diverticulitis. White count is normal. UA clear. CXR showing mild interstital edema. COVID negative. No further fevers. RUQ US showing GB wall thickening felt related to fluid overload or right heart failure then acute cholecystitis. Follow (4) Atrial fibrillation: Code(s): I48.91 - Unspecified atrial fibrillation Status: Acute Assessment and Plan: EKG showing AFib. HR controlled. Eliquis started and tolerating (5) Acute on chronic diastolic CHF (congestive heart failure): Code(s): I50.33 - Acute on chronic diastolic (congestive) heart failure Status: Acute Assessment and Plan: Echo showing EF 60-65%, diastolic dysfunction,enlarged RV with reduced RV fxn and mod-severe biatrial enlargement; moderate pHTN noted. EKG showing AFib and (new) Rt BBB. Acute on chronic diastolic CHF with probable right-sided failure. He continues to have significant edema but feels this is improved with HD Continue HD to control fluid status Continue Bumex. (6) Shingles: Code(s): B02.9 - Zoster without complications Status: Acute Assessment and Plan: Flank pain post shingles infection Pain is well controlled with gabapentin 300 mg q.h.s. 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 Hypoglycemia protocol available as needed. Continue to monitor (8) Electrolyte abnormality: Code(s): E87.8 - Other disorders of electrolyte and fluid balance, not elsewhere classified Status: Acute Assessment and Plan: Ward
[2023-07-11 21:04] LABS: Glucose Point of Care 188 mg/dl (65-105)
[2023-07-11] MEDS: GABAPENTIN 300 MG CAPSULE PO (21:33)
[2023-07-11] MEDS: ACETAMINOPHEN 325 MG TABLET 650 MG PO (21:36)
[2023-07-12 06:00] VITALS: BP 117/53; PULSE 55; RESP 20; TEMP 36.8; O2SAT 98
[2023-07-12 07:42] LABS: Basophils Absolute Auto 0.1 K/mm3 (0.0-0.1); Basophils Percent Auto 1.2 % (0.2-1.2); Eosinophils Absolute Auto 0.1 K/mm3 (0-0.3); Eosinophils Percent Auto 1.6 % (0-4.4); Hematocrit 27.9 % (42.0-52.0); Hemoglobin 8.1 g/dL (14.0-18.0); Immature Granulocyte Absolute 0.02 K/mm3 (0.00-0.031); Immature Granulocyte Percent A 0.4 % (0-0.5); Lymphocytes Absolute Auto 0.78 K/mm3 (0.9-3.2); Lymphocytes Percent Auto 15.6 % (18.3-44.2); Mean Corpuscular Volume 89.7 fl (80-100); Mean Platelet Volume 11.3 fl (7.4-10.4); Monocytes Absolute Auto 0.8 K/mm3 (0.1-0.6); Monocytes Percent Auto 16.4 % (2.6-8.5); Neutrophils Absolute Auto 3.3 K/mm3 (1.3-6.7); Neutrophils Percent Auto 64.8 % (45.5-73.1); Platelet Count Result 133 k/mm3 (150-375); Red Blood Count 3.11 M/mm3 (4.6-6.20); Red Cell Distribution Width 24.7 % (11.5-14.5)
[2023-07-12 08:00] LABS: Alanine Aminotransferase 12 U/L (6-50); Albumin Level 3.2 g/dL (3.5-5.1); Alkaline Phosphatase 94 U/L (38-126); Anion Gap 8 mmol/L (8-16); Aspartate Amino Transferase 24 U/L (17-59); Bilirubin,Total 1.1 mg/dL (0.2-1.3); Blood Urea Nitrogen 50 mg/dL (9-20); Calcium 8.2 mg/dL (8.4-10.2); Carbon Dioxide 27 mmol/L (22-30); Chloride 100 mmol/L (98-107); Estimated CRCL calculation 25 ml/min; Estimated Glomerular Filt Rate 29; Glucose 165 mg/dL (65-110); Potassium 3.7 mmol/L (3.4-5.0); Sodium 135 mmol/L (137-145)
[2023-07-12 08:40] VITALS: PULSE 63
[2023-07-12] MEDS: BUMETANIDE 1 MG TABLET 2 MG PO ×2 (08:40→16:50)
[2023-07-12] MEDS: carvediloL 12.5 MG TABLET PO ×2 (08:40→21:52)
[2023-07-12] MEDS: allopurinoL 100 MG TABLET PO (08:40)
[2023-07-12] MEDS: MAGNESIUM OXIDE 400 MG TABLET PO (08:40)
[2023-07-12] MEDS: ATORVASTATIN 10 MG TABLET PO (08:40)
[2023-07-12] MEDS: APIXABAN 2.5 MG TABLET PO ×2 (08:40→21:53)
[2023-07-12] MEDS: CHOLECALCIFEROL 1,000 UNITS TABLET 2000 UNITS PO (08:40)
--- NOTE | 2023-07-12 09:18 | PC.NURSE ---
RN spoke with deonna via telephone and gave update on patient status
[2023-07-12 09:41] LABS: Glucose Point of Care 172 mg/dl (65-105)
[2023-07-12 12:38] LABS: Glucose Point of Care 261 mg/dl (65-105)
[2023-07-12] MEDS: INSULIN ASPART (*BKC) 100 UNITS/ML SUB-Q ×2 (12:38→21:53)
--- NOTE | 2023-07-12 12:46 | PM.IMPN ---
Progress Note: A&P Assessment and Plan (1) Acute on chronic kidney failure: Code(s): N17.9 - Acute kidney failure, unspecified; N18.9 - Chronic kidney disease, unspecified Status: Acute Assessment and Plan: Patient presents with increasing leg edema likely d/t hypervolemia from volume overload with significant bilateral lower extremity edema with mild congestive changes on chest x-ray Venous Doppler shows no DVT He was on metolazone without benefit. Appreciate cardiology recommendations Pt was on iv bumex but now changed to oral Echo shows diastolic heart failure HD started on 07/05. Plan for SNF and HD arrangements for discharge Continues to make some urine (2) Chronic anemia: Code(s): D64.9 - Anemia, unspecified Status: Acute Assessment and Plan: Suspecting acute blood loss anemia with underlying chronic anemia secondary to chronic renal failure Patient was on Xarelto for AFib that was held for procedure Hemoglobin 10.August but chronically low in the past Hgb 7.0 on admission and trended down to 6.9. Transfused 1 pack RBC 06/28 Iron 19 with normal TIBC and TSat 6% c/w iron deficiency. B12/Folate okay. Pt had venofer and Epogen per reworker As per GI, pt had egd and colonoscopy recently, hb is stable no occult bleeding no need for any intervention Hgb stable in the 7-8 range now. Continue iron Changed to Eliquis and tolerating Follow (3) Fever: Qualifiers: Fever type: unspecified Qualified Code(s): R50.9 - Fever, unspecified Code(s): R50.9 - Fever, unspecified Status: Inactive Assessment and Plan: Patient with low-grade fever. Could be atelectasis. He does have left lower quadrant pain but CT scan showing cholelithiasis, 3.4cm left renal mass and anasarca. No evidence of diverticulitis. White count is normal. UA clear. CXR showing mild interstital edema. COVID negative. RUQ US showing GB wall thickening felt related to fluid overload or right heart failure then acute cholecystitis. No further fevers. Follow (4) Atrial fibrillation: Code(s): I48.91 - Unspecified atrial fibrillation Status: Acute Assessment and Plan: EKG showing AFib. HR controlled. Eliquis started and tolerating (5) Acute on chronic diastolic CHF (congestive heart failure): Code(s): I50.33 - Acute on chronic diastolic (congestive) heart failure Status: Acute Assessment and Plan: Echo showing EF 60-65%, diastolic dysfunction,enlarged RV with reduced RV fxn and mod-severe biatrial enlargement; moderate pHTN noted. EKG showing AFib and (new) Rt BBB. Acute on chronic diastolic CHF with probable right-sided failure. He continues to have significant edema but feels this is improved with HD Continue HD to control fluid status Continue Bumex. (6) Shingles: Code(s): B02.9 - Zoster without complications Status: Acute Assessment and Plan: Flank pain post shingles infection Pain is well controlled with gabapentin 300 mg q.h.s. 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 The patient's blood glucose was reviewed on 07/12 Glucose is up and down Continue AccuCheks covering with sliding scale. Hypoglycemia protocol available as needed. Continue to monitor (8) Electrolyte abnormality: Code(s): E87.8 - Other disorders of electrolyte and fluid balance, not elsewhere classified Status: Acute Assessment and Plan: Potassium cameron
[2023-07-12 14:00] VITALS: BP 106/58; PULSE 51; RESP 16; TEMP 37.2; O2SAT 100
--- NOTE | 2023-07-12 15:24 | P.PNNP_ITS ---
Progress Note: A&P Assessment and Plan (1) LINDSEY (acute kidney injury): Code(s): N17.9 - Acute kidney failure, unspecified Status: Acute Assessment and Plan: * suspect due to chronic prerenal azotemia worsened by need for chronic diuretic therapy * evaluation to date: * renal ultrasound with left hydronephrosis * urine electrolytes are prerenal * CPK normal * UA unremarkable * Urology recommendations noted * CT scan results noted.... bilateral kidney masses measuring up to 3.1 cm on the left which may be hemorrhagic cysts or less likely neoplasms. Abdomen MRI without and with contrast is recommended * unable to do MRI (patient has hardware) * HD due on Friday (2) Stage 3b chronic kidney disease: Code(s): N18.32 - Chronic kidney disease, stage 3b Status: Chronic Assessment and Plan: * baseline creatinine runs ~ 2.0 - 2.5mg/dl * due to biopsy proven hypertensive and diabetic nephrosclerosis as well as chronic pre renal azotemia * (3) Edema: Code(s): R60.9 - Edema, unspecified Status: Acute Assessment and Plan: * fluid removal with HD as tolerated (4) Congestive heart failure: Code(s): I50.9 - Heart failure, unspecified Status: Chronic Assessment and Plan: * suspect acute on chronic diastolic heart failure based on history * repeat Echo noted * Cardiology following * fluid removal with HD to maintain/achieve euvolemia (5) Essential (primary) hypertension: Code(s): I10 - Essential (primary) hypertension Status: Chronic Assessment and Plan: * status Dahl it ranging between 100 and 130 (6) Iron deficiency anemia: Qualifiers: Iron deficiency anemia type: unspecified iron deficiency Qualified Code(s): D50.9 - Iron deficiency anemia, unspecified Code(s): D50.9 - Iron deficiency anemia, unspecified Status: Acute Assessment and Plan: * partly related to LINDSEY and CKD * on IV venofer while hospitalized * PRBC transfusion per protocol * he reports he has antibodies so transfusion may be difficult * Epogen with HD * hemoglobin 8.1 today (7) Type 2 diabetes mellitus with diabetic neuropathy: 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 His is in the room. Exam Narrative: General: WD/WN male in NAD Heart: normal S1 and S2; IRRR, no rub or gallop Lungs: clear anteriorly; decreased at bases Abdomen: soft, nontender, nondistended, positive bowel sounds Extremities: 1 - 2+ edema Skin: No rash Objective Data Vital Signs Vital Signs: Vital Signs - 24 hr 07/11/23 21:32 07/11/23 22:00 07/11/23 20:00 Temperature 99.2 F Pulse Rate 62 67 Respiratory Rate 20 Blood Pressure 105/52 L Pulse Oximetry 98 Oxygen Delivery Room Air Fraction of Inspired Oxygen 0 07/12/23 06:00 07/12/23 08:40 07/12/23 0
--- NOTE | 2023-07-12 15:24 | PM.PNNEP ---
Progress Note: A&P Assessment and Plan (1) LINDSEY (acute kidney injury): Code(s): N17.9 - Acute kidney failure, unspecified Status: Acute Assessment and Plan: suspect due to chronic prerenal azotemia worsened by need for chronic diuretic therapy evaluation to date: renal ultrasound with left hydronephrosis urine electrolytes are prerenal CPK normal UA unremarkable Urology recommendations noted CT scan results noted.... bilateral kidney masses measuring up to 3.1 cm on the left which may be hemorrhagic cysts or less likely neoplasms. Abdomen MRI without and with contrast is recommended unable to do MRI (patient has hardware) HD due on Friday (2) Stage 3b chronic kidney disease: Code(s): N18.32 - Chronic kidney disease, stage 3b Status: Chronic Assessment and Plan: baseline creatinine runs ~ 2.0 - 2.5mg/dl due to biopsy proven hypertensive and diabetic nephrosclerosis as well as chronic pre renal azotemia (3) Edema: Code(s): R60.9 - Edema, unspecified Status: Acute Assessment and Plan: fluid removal with HD as tolerated (4) Congestive heart failure: Code(s): I50.9 - Heart failure, unspecified Status: Chronic Assessment and Plan: suspect acute on chronic diastolic heart failure based on history repeat Echo noted Cardiology following fluid removal with HD to maintain/achieve euvolemia (5) Essential (primary) hypertension: Code(s): I10 - Essential (primary) hypertension Status: Chronic Assessment and Plan: status Dahl it ranging between 100 and 130 (6) Iron deficiency anemia: Qualifiers: Iron deficiency anemia type: unspecified iron deficiency Qualified Code(s): D50.9 - Iron deficiency anemia, unspecified Code(s): D50.9 - Iron deficiency anemia, unspecified Status: Acute Assessment and Plan: partly related to LINDSEY and CKD on IV venofer while hospitalized PRBC transfusion per protocol he reports he has antibodies so transfusion may be difficult Epogen with HD hemoglobin 8.1 today (7) Type 2 diabetes mellitus with diabetic neuropathy: Qualifiers: Diabetes 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 His is in the room. Exam Narrative: General: WD/WN male in NAD Heart: normal S1 and S2; IRRR, no rub or gallop Lungs: clear anteriorly; decreased at bases Abdomen: soft, nontender, nondistended, positive bowel sounds Extremities: 1 - 2+ edema Skin: No rash Objective Data Vital Signs Vital Signs: Vital Signs - 24 hr 07/11/23 21:32 07/11/23 22:00 07/11/23 20:00 Temperature 99.2 F Pulse Rate 62 67 Respiratory Rate 20 Blood Pressure 105/52 L Pulse Oximetry 98 Oxygen Delivery Room Air Fraction of Inspired Oxygen 0 07/12/23 06:00 07/12/23 08:40 07/12/23 08:58 Temperature 98.3 F Pulse Rate 55 L 63 Respiratory Rate 20 Blood Pressure 117/53 L Pulse Oximetry 98 Oxygen Delivery Room Air Fraction of Inspired Oxygen Intake/Output Intake/Output: Intake & Output 07/09/23 07/10/23 07/11/23 07/12/23 23:59 23:59 23:59 23:59 Intake Total 1340 1780 1500 1300 Output Total 800 3975 3000 200 Balance 540 2195 -1500 1100 Meds/Results Medications: Active Medications Generic Name Dose Route Start Last Admin Trade Name Freq PRN Reason Stop Dose Admin Acetaminophen 650 mg 07/08/23 20:44 07/11/23 21:36 Acetaminophen 325 Mg Tablet PO 650 mg Q6H PRN Administration Mild Pa
[2023-07-12 17:09] LABS: Glucose Point of Care 161 mg/dl (65-105)
[2023-07-12 21:03] LABS: Glucose Point of Care 268 mg/dl (65-105)
[2023-07-12 21:40] VITALS: BP 105/68; PULSE 58; RESP 16; TEMP 36.8; O2SAT 100
[2023-07-12 21:52] VITALS: PULSE 58
[2023-07-12] MEDS: FERROUS SULFATE 325 MG TABLET DR 650 MG PO (21:52)
[2023-07-12] MEDS: GABAPENTIN 300 MG CAPSULE PO (21:53)
[2023-07-13 06:00] VITALS: BP 109/55; PULSE 50; RESP 18; TEMP 36.7; O2SAT 96
[2023-07-13 06:23] LABS: Basophils Absolute Auto 0.1 K/mm3 (0.0-0.1); Eosinophils Absolute Auto 0.1 K/mm3 (0-0.3); Eosinophils Percent Auto 1.6 % (0-4.4); Hematocrit 29.1 % (42.0-52.0); Hemoglobin 8.4 g/dL (14.0-18.0); Immature Granulocyte Absolute 0.03 K/mm3 (0.00-0.031); Immature Granulocyte Percent A 0.6 % (0-0.5); Lymphocytes Absolute Auto 0.84 K/mm3 (0.9-3.2); Lymphocytes Percent Auto 16.7 % (18.3-44.2); Mean Corpuscular HGB Conc 28.9 g/dl (32-36); Mean Corpuscular Hemoglobin 25.7 pg (26-34); Mean Platelet Volume 10.8 fl (7.4-10.4); Monocytes Absolute Auto 0.7 K/mm3 (0.1-0.6); Monocytes Percent Auto 14.1 % (2.6-8.5); Neutrophils Absolute Auto 3.3 K/mm3 (1.3-6.7); Platelet Count Result 136 k/mm3 (150-375); Red Blood Count 3.27 M/mm3 (4.6-6.20); Red Cell Distribution Width 24.1 % (11.5-14.5)
[2023-07-13 06:36] LABS: Alanine Aminotransferase 13 U/L (6-50); Albumin Level 3.1 g/dL (3.5-5.1); Alkaline Phosphatase 99 U/L (38-126); Anion Gap 8 mmol/L (8-16); Aspartate Amino Transferase 25 U/L (17-59); Blood Urea Nitrogen 62 mg/dL (9-20); Calcium 8.2 mg/dL (8.4-10.2); Carbon Dioxide 26 mmol/L (22-30); Chloride 101 mmol/L (98-107); Estimated CRCL calculation 13 ml/min; Estimated Glomerular Filt Rate 25; Glucose 154 mg/dL (65-110); Sodium 135 mmol/L (137-145)
[2023-07-13 08:01] VITALS: PULSE 55
[2023-07-13] MEDS: CHOLECALCIFEROL 1,000 UNITS TABLET 2000 UNITS PO (08:01)
[2023-07-13] MEDS: allopurinoL 100 MG TABLET PO (08:01)
[2023-07-13] MEDS: BUMETANIDE 1 MG TABLET 2 MG PO ×2 (08:01→16:38)
[2023-07-13] MEDS: APIXABAN 2.5 MG TABLET PO ×2 (08:01→20:31)
[2023-07-13] MEDS: calcitrioL 0.25 MCG CAPSULE PO (08:01)
[2023-07-13] MEDS: ATORVASTATIN 10 MG TABLET PO (08:01)
[2023-07-13] MEDS: MAGNESIUM OXIDE 400 MG TABLET PO (08:01)
[2023-07-13] MEDS: carvediloL 12.5 MG TABLET PO ×2 (08:01→20:31)
[2023-07-13 08:23] LABS: Glucose Point of Care 154 mg/dl (65-105)
[2023-07-13 11:58] LABS: Glucose Point of Care 331 mg/dl (65-105)
[2023-07-13] MEDS: INSULIN ASPART (*BKC) 100 UNITS/ML SUB-Q (12:39)
--- NOTE | 2023-07-13 13:13 | P.PNNP_ITS ---
Progress Note: A&P Assessment and Plan (1) LINDSEY (acute kidney injury): Code(s): N17.9 - Acute kidney failure, unspecified Status: Acute Assessment and Plan: * suspect due to chronic prerenal azotemia worsened by need for chronic diuretic therapy * evaluation to date: * renal ultrasound with left hydronephrosis * urine electrolytes are prerenal * CPK normal * UA unremarkable * Urology recommendations noted * CT scan results noted.... bilateral kidney masses measuring up to 3.1 cm on the left which may be hemorrhagic cysts or less likely neoplasms. Abdomen MRI without and with contrast is recommended * unable to do MRI (patient has hardware) * HD due on Friday (2) Stage 3b chronic kidney disease: Code(s): N18.32 - Chronic kidney disease, stage 3b Status: Chronic Assessment and Plan: * baseline creatinine runs ~ 2.0 - 2.5mg/dl * due to biopsy proven hypertensive and diabetic nephrosclerosis as well as chronic pre renal azotemia * (3) Edema: Code(s): R60.9 - Edema, unspecified Status: Acute Assessment and Plan: * fluid removal with HD as tolerated (4) Congestive heart failure: Code(s): I50.9 - Heart failure, unspecified Status: Chronic Assessment and Plan: * suspect acute on chronic diastolic heart failure based on history * repeat Echo noted * Cardiology following * fluid removal with HD to maintain/achieve euvolemia (5) Essential (primary) hypertension: Code(s): I10 - Essential (primary) hypertension Status: Chronic Assessment and Plan: * status Dahl it ranging between 100 and 130 (6) Iron deficiency anemia: Qualifiers: Iron deficiency anemia type: unspecified iron deficiency Qualified Code(s): D50.9 - Iron deficiency anemia, unspecified Code(s): D50.9 - Iron deficiency anemia, unspecified Status: Acute Assessment and Plan: * partly related to LINDSEY and CKD * on IV venofer while hospitalized * PRBC transfusion per protocol * he reports he has antibodies so transfusion may be difficult * Epogen with HD * hemoglobin 8.1 today (7) Type 2 diabetes mellitus with diabetic neuropathy: 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: 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: without 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 use Qualified Code(s): E11.40 - Type 2 diabetes mellitus with diabetic neuropathy, unspecified Code(s): E11.40 - Type 2 diabetes mellitus with diabetic neuropathy, unspecified Status: Chronic Assessment and Plan: * follow accu-cheks * glycemic control per hospitalists Subjective Date/time seen: 07/13/23 13:13 Exam Narrative: General: WD/WN male in NAD Heart: normal S1 and S2; IRRR, no rub or gallop Lungs: clear anteriorly; decreased at bases Abdomen: soft, nontender, nondistended, positive bowel sounds Extremities: 1 - 2+ edema Skin: No rash Objective Data Vital Signs Vital Signs: Vital Signs - 24 hr 07/12/23 14:00 07/12/23 20:00 07/12/23 21:40 Temperature 99.0 F 98.3 F Pulse Rate 51 L 58 L Respiratory Rate 16 16 Blood Pressure 106/58 L 105/68 Pulse Oximetry 100 100 Oxygen Delivery Room Air Fraction of Inspired Oxygen 0 07/12/23 21:52 07/13/23 06:00 07/13/23 08:01 Temperature 98.1 F Pulse Rate 58 L 50 L
--- NOTE | 2023-07-13 13:13 | PM.PNNEP ---
Progress Note: A&P Assessment and Plan (1) LINDSEY (acute kidney injury): Code(s): N17.9 - Acute kidney failure, unspecified Status: Acute Assessment and Plan: suspect due to chronic prerenal azotemia worsened by need for chronic diuretic therapy evaluation to date: renal ultrasound with left hydronephrosis urine electrolytes are prerenal CPK normal UA unremarkable Urology recommendations noted CT scan results noted.... bilateral kidney masses measuring up to 3.1 cm on the left which may be hemorrhagic cysts or less likely neoplasms. Abdomen MRI without and with contrast is recommended unable to do MRI (patient has hardware) HD due on Friday (2) Stage 3b chronic kidney disease: Code(s): N18.32 - Chronic kidney disease, stage 3b Status: Chronic Assessment and Plan: baseline creatinine runs ~ 2.0 - 2.5mg/dl due to biopsy proven hypertensive and diabetic nephrosclerosis as well as chronic pre renal azotemia (3) Edema: Code(s): R60.9 - Edema, unspecified Status: Acute Assessment and Plan: fluid removal with HD as tolerated (4) Congestive heart failure: Code(s): I50.9 - Heart failure, unspecified Status: Chronic Assessment and Plan: suspect acute on chronic diastolic heart failure based on history repeat Echo noted Cardiology following fluid removal with HD to maintain/achieve euvolemia (5) Essential (primary) hypertension: Code(s): I10 - Essential (primary) hypertension Status: Chronic Assessment and Plan: status Dahl it ranging between 100 and 130 (6) Iron deficiency anemia: Qualifiers: Iron deficiency anemia type: unspecified iron deficiency Qualified Code(s): D50.9 - Iron deficiency anemia, unspecified Code(s): D50.9 - Iron deficiency anemia, unspecified Status: Acute Assessment and Plan: partly related to LINDSEY and CKD on IV venofer while hospitalized PRBC transfusion per protocol he reports he has antibodies so transfusion may be difficult Epogen with HD hemoglobin 8.1 today (7) Type 2 diabetes mellitus with diabetic neuropathy: 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 Qualified Code(s): E11.40 - Type 2 diabetes mellitus with diabetic neuropathy, unspecified Code(s): E11.40 - Type 2 diabetes mellitus with diabetic neuropathy, unspecified Status: Chronic Assessment and Plan: follow accu-cheks glycemic control per hospitalists Subjective Date/time seen: 07/13/23 13:13 Exam Narrative: General: WD/WN male in NAD Heart: normal S1 and S2; IRRR, no rub or gallop Lungs: clear anteriorly; decreased at bases Abdomen: soft, nontender, nondistended, positive bowel sounds Extremities: 1 - 2+ edema Skin: No rash Objective Data Vital Signs Vital Signs: Vital Signs - 24 hr 07/12/23 14:00 07/12/23 20:00 07/12/23 21:40 Temperature 99.0 F 98.3 F Pulse Rate 51 L 58 L Respiratory Rate 16 16 Blood Pressure 106/58 L 105/68 Pulse Oximetry 100 100 Oxygen Delivery Room Air Fraction of Inspired Oxygen 0 07/12/23 21:52 07/13/23 06:00 07/13/23 08:01 Temperature 98.1 F Pulse Rate 58 L 50 L 55 L Respiratory Rate 18 Blood Pressure 109/55 L Pulse Oximetry 96 Oxygen Delivery Fraction of Inspired Oxygen 07/13/23 08:01 Temperature Pulse Rate Respiratory Rate Blood Pressure Pulse Oximetry Oxygen Delivery Room Air Fraction of Inspired Oxygen Intake/Output Intake/Output: Intake & Output 07/10/23 07/11/23 07/12/23 07/13/23 23:59 23:59 23:59 23:59 Intake Total 1780 1500 1990 490 Output Total 3975 3000 500 400 Balance -2195 -1500 1490 90 Meds/Results Medications: Active Medications Generic Name Dose Route Start Last Admin Trade Name Freq PRN Reason Stop Dose Admin Acetaminophen 650 mg 07/08/23 20:44
--- NOTE | 2023-07-13 13:28 | PM.IMPN ---
Progress Note: A&P Assessment and Plan (1) Abdominal pain: Code(s): R10.9 - Unspecified abdominal pain Status: Acute Assessment and Plan: Patient with worsening abdominal pain today. No nausea, vomiting or diarrhea. He is not eating as much as he normally does but staff documenting that patient is eating 100% of meals. CT scan on 07/09 showing cholelithiasis and pericholecystic fluid and possible inflammatory changes. He also had mild diffuse mesenteric edema and trace ascites with moderate body wall edema. Cystitis versus bladder wall thickening noted as well. Patient is voiding normally. UA was clear on 07/10/2023. Right upper quadrant ultrasound on 07/10 showed gallbladder wall thickening with mobile gallstone without gallbladder dilation or Atkins sign. Findings suggest at the gallbladder wall thickening is much more likely cardiogenic in etiology related to fluid overload. Will re-consult General surgery. Order HIDA scan. (2) Acute on chronic kidney failure: Code(s): N17.9 - Acute kidney failure, unspecified; N18.9 - Chronic kidney disease, unspecified Status: Acute Assessment and Plan: Patient presents with increasing leg edema likely d/t hypervolemia from volume overload with significant bilateral lower extremity edema with mild congestive changes on chest x-ray Cr was 3.2 and climbed to 3.6 Venous Doppler shows no DVT He was on metolazone without benefit. Appreciate cardiology recommendations Pt was on iv bumex but now changed to oral Echo shows diastolic heart failure HD started on 07/05. Plan for SNF and HD arrangements for discharge Continues to make some urine (3) Chronic anemia: Code(s): D64.9 - Anemia, unspecified Status: Acute Assessment and Plan: Suspecting acute blood loss anemia with underlying chronic anemia secondary to chronic renal failure Patient was on Xarelto for AFib that was held for procedure Hemoglobin 10.August but chronically low in the past Hgb 7.0 on admission and trended down to 6.9. Transfused 1 pack RBC 06/28 Iron 19 with normal TIBC and TSat 6% c/w iron deficiency. B12/Folate okay. Pt had venofer and Epogen per switchboard receptionist As per GI, pt had egd and colonoscopy recently, hb is stable no occult bleeding no need for any intervention Hgb stable in the 7-8 range now. Continue iron Changed to Eliquis and tolerating Follow (4) Fever: Qualifiers: Fever type: unspecified Qualified Code(s): R50.9 - Fever, unspecified Code(s): R50.9 - Fever, unspecified Status: Inactive Assessment and Plan: Patient with low-grade fever 12/. Could be atelectasis. He does have left lower quadrant pain but CT scan showing cholelithiasis, 3.4cm left renal mass and anasarca. No evidence of diverticulitis. White count is normal. UA clear. CXR showing mild interstitial edema. COVID negative. RUQ US showing GB wall thickening felt related to fluid overload or right heart failure then acute cholecystitis. No further fevers. Follow (5) Atrial fibrillation: Code(s): I48.91 - Unspecified atrial fibrillation Status: Acute Assessment and Plan: EKG showing AFib. HR controlled. Eliquis started and tolerating (6) Acute on chronic diastolic CHF (congestive heart failure): Code(s): I50.33 - Acute on chronic diastolic (congestive) heart failure Status: Acute Assessment and Plan: Echo showing EF 60-65%, diastolic dysfunction,enlarged RV with reduced RV fxn and mod-severe biatrial enlargement; moderate pHTN noted. EKG showing AFib and (new) Rt BBB. Acute on chronic diastolic CHF with probable right-sided failure. He continues to have significant edema but feels this is improved with HD Continue HD to control fluid status Continue Bumex. (7) Shingles: Code(s): B02.9 - Zoster without complications Status: Acute Assessment and Plan: Flank pain post spears
--- NOTE | 2023-07-13 14:07 | PC.NURSE ---
RN spoke with general surgery exchange and reconsulted surgery
--- NOTE | 2023-07-13 14:09 | PC.NURSE ---
RN spoke with Jodi via telephone. Jodi stated that patient will be seen tomorrow.
[2023-07-13 14:57] VITALS: BP 111/50; PULSE 52; RESP 16; TEMP 36.8; O2SAT 100
[2023-07-13] MEDS: ACETAMINOPHEN 325 MG TABLET 650 MG PO (14:57)
[2023-07-13 16:56] LABS: Glucose Point of Care 155 mg/dl (65-105)
[2023-07-13 20:23] VITALS: BP 118/60; PULSE 58; RESP 18; TEMP 36.6; O2SAT 100
[2023-07-13 20:31] VITALS: PULSE 58
[2023-07-13] MEDS: GABAPENTIN 300 MG CAPSULE PO (20:31)
[2023-07-13 21:43] LABS: Glucose Point of Care 195 mg/dl (65-105)
[2023-07-14] VITALS (22 sets, daily range): BP systolic 94–131; BP diastolic 46–73; PULSE 47–81; RESP 16–18; TEMP 36.7–37.6; O2SAT 96–100
[2023-07-14 05:51] LABS: Basophils Absolute Auto 0.1 K/mm3 (0.0-0.1); Basophils Percent Auto 1.2 % (0.2-1.2); Eosinophils Absolute Auto 0.1 K/mm3 (0-0.3); Eosinophils Percent Auto 1.9 % (0-4.4); Hematocrit 28.5 % (42.0-52.0); Hemoglobin 8.2 g/dL (14.0-18.0); Immature Granulocyte Absolute 0.02 K/mm3 (0.00-0.031); Immature Granulocyte Percent A 0.4 % (0-0.5); Lymphocytes Absolute Auto 0.79 K/mm3 (0.9-3.2); Lymphocytes Percent Auto 15.3 % (18.3-44.2); Mean Corpuscular HGB Conc 28.8 g/dl (32-36); Mean Corpuscular Hemoglobin 25.4 pg (26-34); Mean Corpuscular Volume 88.2 fl (80-100); Mean Platelet Volume 10.6 fl (7.4-10.4); Monocytes Absolute Auto 0.7 K/mm3 (0.1-0.6); Monocytes Percent Auto 12.6 % (2.6-8.5); Neutrophils Absolute Auto 3.6 K/mm3 (1.3-6.7); Neutrophils Percent Auto 68.6 % (45.5-73.1); Platelet Count Result 140 k/mm3 (150-375); Red Blood Count 3.23 M/mm3 (4.6-6.20); Red Cell Distribution Width 23.8 % (11.5-14.5); White Blood Count 5.2 K/mm3 (4.5-10.0)
[2023-07-14 06:09] LABS: Alanine Aminotransferase 13 U/L (6-50); Alkaline Phosphatase 101 U/L (38-126); Anion Gap 5 mmol/L (8-16); Aspartate Amino Transferase 21 U/L (17-59); Bilirubin,Total 0.8 mg/dL (0.2-1.3); Blood Urea Nitrogen 66 mg/dL (9-20); Calcium 7.9 mg/dL (8.4-10.2); Carbon Dioxide 27 mmol/L (22-30); Chloride 101 mmol/L (98-107); Estimated CRCL calculation 20 ml/min; Estimated Glomerular Filt Rate 22; Glucose 186 mg/dL (65-110); Potassium 3.8 mmol/L (3.4-5.0); Sodium 133 mmol/L (137-145)
[2023-07-14 07:05] LABS: Anisocytosis 1+ (NORMAL); Burr Cells 1+ (NORMAL); Hypochromasia 1+ (NORMAL); Ovalocytes 1+ (NORMAL); Poikilocytosis 2+ (NORMAL); Schistocytes Rare (NORMAL)
[2023-07-14 08:37] LABS: Glucose Point of Care 171 mg/dl (65-105)
--- NOTE | 2023-07-14 08:43 | PC.NURSE ---
Patient is NPO for scan that is ordered. RN spoke with nuclear medicine and patient has to remain NPO for 4 hours.
--- NOTE | 2023-07-14 11:46 | PC.NURSE ---
Patient off of unit to HIDA scan
--- NOTE | 2023-07-14 12:29 | PM.IMPN ---
Progress Note: A&P Assessment and Plan (1) Abdominal pain: Code(s): R10.9 - Unspecified abdominal pain Status: Acute Assessment and Plan: Patient with worsening abdominal pain yesterday. No nausea, vomiting or diarrhea. He is still not eating as much but staff documenting that patient is eating 50-100% of meals. CT scan on 07/09 showing cholelithiasis and pericholecystic fluid and possible inflammatory changes. He also had mild diffuse mesenteric edema and trace ascites with moderate body wall edema. Cystitis versus bladder wall thickening noted as well. Patient is voiding normally. UA was clear on 07/10/2023. RUQ US on 07/10 showed gallbladder wall thickening with mobile gallstone without gallbladder dilation or Atkins sign. Findings suggest at the gallbladder wall thickening is much more likely cardiogenic in etiology related to fluid overload. Will re-consult General surgery. HIDA scan ordered. (2) Acute on chronic kidney failure: Code(s): N17.9 - Acute kidney failure, unspecified; N18.9 - Chronic kidney disease, unspecified Status: Acute Assessment and Plan: Patient presents with increasing leg edema likely d/t hypervolemia from volume overload with significant bilateral lower extremity edema with mild congestive changes on chest x-ray Cr was 3.2 and climbed to 3.6 Venous Doppler shows no DVT He was on metolazone without benefit. Appreciate cardiology recommendations Pt was on iv bumex but now changed to oral Echo shows diastolic heart failure HD started on 07/05. Plan for SNF and HD arrangements for discharge (3) Chronic anemia: Code(s): D64.9 - Anemia, unspecified Status: Acute Assessment and Plan: Suspecting acute blood loss anemia with underlying chronic anemia secondary to chronic renal failure Patient was on Xarelto for AFib that was held for procedure Hemoglobin 10.August but chronically low in the past Hgb 7.0 on admission and trended down to 6.9. Transfused 1 pack RBC 06/28 Iron 19 with normal TIBC and TSat 6% c/w iron deficiency. B12/Folate okay. Pt had venofer and Epogen per legal paraprofessional As per GI, pt had egd and colonoscopy recently, hb is stable no occult bleeding no need for any intervention Hgb stable in the 7-8 range now. Continue iron Changed to Eliquis and tolerating Follow (4) Fever: Qualifiers: Fever type: unspecified Qualified Code(s): R50.9 - Fever, unspecified Code(s): R50.9 - Fever, unspecified Status: Inactive Assessment and Plan: Patient with low-grade fever 12/5. Could be atelectasis. He does have left lower quadrant pain but CT scan showing cholelithiasis, 3.4cm left renal mass and anasarca. No evidence of diverticulitis. White count is normal. UA clear. CXR showing mild interstitial edema. COVID negative. RUQ US showing GB wall thickening felt related to fluid overload or right heart failure then acute cholecystitis. No further fevers. Follow (5) Atrial fibrillation: Code(s): I48.91 - Unspecified atrial fibrillation Status: Acute Assessment and Plan: EKG showing AFib. HR controlled. Eliquis started and tolerating (6) Acute on chronic diastolic CHF (congestive heart failure): Code(s): I50.33 - Acute on chronic diastolic (congestive) heart failure Status: Acute Assessment and Plan: Echo showing EF 60-65%, diastolic dysfunction,enlarged RV with reduced RV fxn and mod-severe biatrial enlargement; moderate pHTN noted. EKG showing AFib and (new) Rt BBB. Acute on chronic diastolic CHF with probable right-sided failure. He continues to have significant edema but feels this is improved with HD Continue HD to control fluid status Continue Bumex. (7) Shingles: Code(s): B02.9 - Zoster without complications Status: Acute Assessment and Plan: Flank pain post shingles infection Pain is well controlled with gabapentin 300
--- NOTE | 2023-07-14 12:42 | PCPTNOTE ---
Attempted PT re-evaluation, pt off the unit for a test then will be going to dialysis per RN. Will follow.
--- NOTE | 2023-07-14 13:42 | PC.NURSE ---
Patient returned to unit
--- NOTE | 2023-07-14 14:12 | PM.PNGS ---
Progress Note: A&P Assessment and Plan (1) Cholelithiasis: Code(s): K80.20 - Calculus of gallbladder without cholecystitis without obstruction Status: Acute Assessment and Plan: CT, RUQ US, and HIDA scan reviewed. RUQ ultrasound showed a mobile gallstone with wall thickening, but other findings that suggest that the additional abnormalities of the gallbladder are more likely cardiogenic in nature rather than from cholecystitis. He is not having any RUQ abdominal pain or tenderness at this time. He is tolerating a diet. HIDA scan done today and was normal with an EF 95%. Discussed with the patient that there is no indication for any surgical intervention for his gallbladder at this time. Okay from a surgical standpoint to discharge the patient when medically stable on a low fat diet. Follow-up as an outpatient with Dr. Schulte. Call with any additional surgical questions or concerns. 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 This is symptomatic, but there is no indication for emergent repair. Recommended using an abdominal binder and he can follow-up with Dr. Schulte as an outpatient to discuss surgery once his acute medical issues have been treated. Patient understands. Plan I have discussed the patient's case and plan of care with Dr. Schulte. Subjective Subjective Date/Time Seen: 07/14/23 14:12 Patient reports: tolerating a regular diet Interval history: We have been asked to see the patient again today for abdominal pain and abnormal findings of the gallbladder on imaging. He has been complaining of abdominal pain in the area of his umbilical hernia when he was last seen. He was specific that this was focally at the area of the hernia and has been ongoing for years, although seemed to become more frequent recently. Since then, he began complaining of some left lower quadrant abdominal pain that is different from his hernia pain. He subsequently had a CT scan of the abdomen and pelvis (07/09) that showed cholelithiasis, pericholecystic fluid and apparent pericholecystic inflammatory change. He had a RUQ US (07/10) that showed gallbladder wall thickening with MOBILE gallstone but without gallbladder dilatation or positive Atkins's sign, impression suggested that these findings are more likely cardiogenic in etiology. He then had a HIDA scan ordered today that was normal with an EF of 94%. He is now seen on the medical floor. He is tolerating his diet and just finished eating. He still has some abdominal pain at the hernia, but states this is just sore when he pushes it back in. He states he has been able to push this back in daily while admitted. He states his pain does radiate to the LUQ and LLQ at times. His pain does not seem to be aggravated by eating. He is not having any significant abdominal pain at this time. Exam Const: General: no acute distress and well developed Orientation/consciousness: patient oriented x3 GI: Inspection: non-distended GI Palp: Yes Soft to palpation, Yes Tenderness to palpation present (GI) (LUQ and LLQ), No Guarding due to palpation present (GI), Yes Hernia present (soft reducible umbilical hernia, only very mildly tender when reduced) and No Rebound tenderness present Auscultation: normal bowel sounds Objective Data Vital Signs Vital Signs: Vital Signs - 24 hr 07/13/23 14:57 07/13/23 20:23 07/13/23 20:31 Temperature 98.2 F 98 F Pulse Rate 52 L 58 L 58 L Respiratory Rate 16 18 Blood Pressure 111/50 L 118/60 Pulse Oximetry 100 100 Oxygen Delivery 07/13/23 20:00 07/14/23 05:02 07/14/23 08:10 Temperature 98.1 F Pulse Rate 70 Respiratory Rate 18 Blood Pressure 116/57 L Pulse Oximetry 100 Oxygen Delivery Room Air Room Air Intake/Output Intake/Output: Intake & Output 07/11/23 07/12/23 07/13/23 07/14/23 23:5
[2023-07-14 17:16] LABS: Glucose Point of Care 248 mg/dl (65-105)
[2023-07-14] MEDS: INSULIN ASPART (*BKC) 100 UNITS/ML SUB-Q (17:25)
[2023-07-14] MEDS: MIDODRINE HCL 2.5 MG TABLET 5 MG PO (17:35)
--- NOTE | 2023-07-14 18:50 | PM.PNNEP ---
Progress Note: A&P Assessment and Plan (1) LINDSEY (acute kidney injury): Code(s): N17.9 - Acute kidney failure, unspecified Status: Acute Assessment and Plan: suspect due to chronic prerenal azotemia worsened by need for chronic diuretic therapy evaluation to date: renal ultrasound with left hydronephrosis urine electrolytes are prerenal CPK normal UA unremarkable no further improvement with dopamine so discontinued Urology recommendations noted CT scan results noted.... bilateral kidney masses measuring up to 3.1 cm on the left which may be hemorrhagic cysts or less likely neoplasms. Abdomen MRI without and with contrast is recommended unable to do MRI (patient has hardware) HD today will need outpatient dialysis on discharge -- outpatient schedule finalized for M/W/F at [facility] (2) Stage 3b chronic kidney disease: Code(s): N18.32 - Chronic kidney disease, stage 3b Status: Chronic Assessment and Plan: baseline creatinine runs ~ 2.0 - 2.5mg/dl due to biopsy proven hypertensive and diabetic nephrosclerosis his underlying CHF and need for diuretic therapy are playing a role as well (3) Edema: Code(s): R60.9 - Edema, unspecified Status: Acute Assessment and Plan: worsening with subsequent admission off dopamine transitioned to oral diuretics follow clinical exam, daily weights, and I/Os fluid removal with HD as tolerated (4) Congestive heart failure: Code(s): I50.9 - Heart failure, unspecified Status: Chronic Assessment and Plan: suspect acute on chronic diastolic heart failure based on history repeat Echo noted Cardiology following fluid removal with HD to maintain/achieve euvolemia (5) Essential (primary) hypertension: Code(s): I10 - Essential (primary) hypertension Status: Chronic Assessment and Plan: reasonable control follow trend of hemodynamis (6) Iron deficiency anemia: Qualifiers: Iron deficiency anemia type: unspecified iron deficiency Qualified Code(s): D50.9 - Iron deficiency anemia, unspecified Code(s): D50.9 - Iron deficiency anemia, unspecified Status: Acute Assessment and Plan: partly related to LINDSEY and CKD on IV venofer while hospitalized PRBC transfusion per protocol he reports he has antibodies so transfusion may be difficult Epogen with HD follow trend of H/H (7) Type 2 diabetes mellitus with diabetic neuropathy: Qualifiers: Diabetes mellitus long-term insulin use: without local 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 Will continue to follow. Subjective Date/time seen: 07/14/23 18:50 Interval history: Follow-up for acute kidney injury/acute renal failure on chronic kidney disease -- now requiring hemodialysis. Tolerating dialysis treatment at the time of my visit (seen on HD at 6:40PM); -- noted on/off issues with abdominal pain over the weekend; Surgery recommendations noted regarding gallbladder and umbilical hernia; no apparent distress voiced currently. Exam Narrative: General: WD/WN male in NAD Heart: normal S1 and S2; IRRR, no rub Lungs: clear anteriorly; decreased at bases Abdomen: soft, nontender, nondistended, positive bowel sounds Extremities: no cyanosis or clubbing; 1 - 2+ edema Skin: no rash Objective Data Vital Signs Vital Signs: Vital Signs Temp Pulse Resp BP Pulse Ox O2 Del Method 07/14/23 18:23 98.3 F 61 16 105/55 L 07/14/23 18:00 50 L 123/65 07/14/23 16:14 5
--- NOTE | 2023-07-14 18:50 | P.PNNP_ITS ---
Progress Note: A&P Assessment and Plan (1) LINDSEY (acute kidney injury): Code(s): N17.9 - Acute kidney failure, unspecified Status: Acute Assessment and Plan: * suspect due to chronic prerenal azotemia worsened by need for chronic diuretic therapy * evaluation to date: * renal ultrasound with left hydronephrosis * urine electrolytes are prerenal * CPK normal * UA unremarkable * no further improvement with dopamine so discontinued * Urology recommendations noted * CT scan results noted.... bilateral kidney masses measuring up to 3.1 cm on the left which may be hemorrhagic cysts or less likely neoplasms. Abdomen MRI without and with contrast is recommended * unable to do MRI (patient has hardware) * HD today * will need outpatient dialysis on discharge -- outpatient schedule finalized for M//F at [facility] (2) Stage 3b chronic kidney disease: Code(s): N18.32 - Chronic kidney disease, stage 3b Status: Chronic Assessment and Plan: * baseline creatinine runs ~ 2.0 - 2.5mg/dl * due to biopsy proven hypertensive and diabetic nephrosclerosis * his underlying CHF and need for diuretic therapy are playing a role as well (3) Edema: Code(s): R60.9 - Edema, unspecified Status: Acute Assessment and Plan: * worsening with subsequent admission * off dopamine * transitioned to oral diuretics * follow clinical exam, daily weights, and I/Os * fluid removal with HD as tolerated (4) Congestive heart failure: Code(s): I50.9 - Heart failure, unspecified Status: Chronic Assessment and Plan: * suspect acute on chronic diastolic heart failure based on history * repeat Echo noted * Cardiology following * fluid removal with HD to maintain/achieve euvolemia (5) Essential (primary) hypertension: Code(s): I10 - Essential (primary) hypertension Status: Chronic Assessment and Plan: * reasonable control * follow trend of hemodynamis (6) Iron deficiency anemia: Qualifiers: Iron deficiency anemia type: unspecified iron deficiency Qualified Code(s): D50.9 - Iron deficiency anemia, unspecified Code(s): D50.9 - Iron deficiency anemia, unspecified Status: Acute Assessment and Plan: * partly related to LINDSEY and CKD * on IV venofer while hospitalized * PRBC transfusion per protocol * he reports he has antibodies so transfusion may be difficult * Epogen with HD * follow trend of H/H (7) Type 2 diabetes mellitus with diabetic neuropathy: Qualifiers: Diabetes mellitus care home insulin use: without buttermaker continuous churn use Qualified Code(s): E11.40 - Type 2 diabetes mellitus with diabetic neuropathy, unspecified Code(s): E11.40 - Type 2 diabetes mellitus with diabetic neuropathy, unspecified Status: Chronic Assessment and Plan: * follow accu-cheks * glycemic control per hospitalists Not opposed to discharge from renal perspective if otherwise medically stable and outpatient disposition finalized. Will continue to follow. Subjective Date/time seen: 07/14/23 18:50 Interval history: Follow-up for acute kidney injury/acute renal failure on chronic kidney disease -- now requiring hemodialysis. Tolerating dialysis treatment at the time of my visit (seen on HD at 6:40PM); -- noted on/off issues with abdominal pain over the weekend; Surgery recommendations noted regarding gallbladder and umbilical hernia; no apparent distress voiced currently. Exam
[2023-07-14] MEDS: ALBUMIN HUMAN 25% 12.5 GM/50ML 100 ML IVPB (18:59)
[2023-07-14] MEDS: EPOETIN ALFA-EPBX 10,000 UNITS/ML VIAL 10000 UNITS IV PUSH (20:35)
[2023-07-14] MEDS: HEPARIN SODIUM 1,000 UNITS/ML VIAL 6000 UNITS IV PUSH (22:09)
[2023-07-14] MEDS: APIXABAN 2.5 MG TABLET PO (23:51)
[2023-07-14] MEDS: carvediloL 12.5 MG TABLET PO (23:51)
[2023-07-14] MEDS: GABAPENTIN 300 MG CAPSULE PO (23:52)
[2023-07-14] MEDS: FERROUS SULFATE 325 MG TABLET DR 650 MG PO (23:54)
[2023-07-15 01:14] LABS: Glucose Point of Care 154 mg/dl (65-105)
[2023-07-15 05:57] VITALS: BP 109/55; PULSE 53; RESP 16; TEMP 36.6; O2SAT 98
[2023-07-15 06:10] LABS: Basophils Absolute Auto 0.1 K/mm3 (0.0-0.1); Basophils Percent Auto 1.3 % (0.2-1.2); Eosinophils Absolute Auto 0.1 K/mm3 (0-0.3); Eosinophils Percent Auto 1.1 % (0-4.4); Hematocrit 30.5 % (42.0-52.0); Hemoglobin 8.5 g/dL (14.0-18.0); Immature Granulocyte Absolute 0.01 K/mm3 (0.00-0.031); Immature Granulocyte Percent A 0.2 % (0-0.5); Lymphocytes Absolute Auto 0.68 K/mm3 (0.9-3.2); Lymphocytes Percent Auto 14.7 % (18.3-44.2); Mean Corpuscular HGB Conc 27.9 g/dl (32-36); Mean Corpuscular Hemoglobin 25.8 pg (26-34); Mean Corpuscular Volume 92.4 fl (80-100); Mean Platelet Volume 11.3 fl (7.4-10.4); Monocytes Absolute Auto 0.7 K/mm3 (0.1-0.6); Neutrophils Absolute Auto 3.1 K/mm3 (1.3-6.7); Neutrophils Percent Auto 66.7 % (45.5-73.1); Platelet Count Result 132 k/mm3 (150-375); Red Cell Distribution Width 23.9 % (11.5-14.5); White Blood Count 4.6 K/mm3 (4.5-10.0)
[2023-07-15 06:51] LABS: Crenated RBC 2+ (NORMAL)
[2023-07-15 06:52] LABS: Schistocytes 2+ (NORMAL)
[2023-07-15 07:03] LABS: Alanine Aminotransferase 11 U/L (6-50); Albumin Level 3.1 g/dL (3.5-5.1); Alkaline Phosphatase 99 U/L (38-126); Anion Gap 9 mmol/L (8-16); Aspartate Amino Transferase 21 U/L (17-59); Bilirubin,Total 0.8 mg/dL (0.2-1.3); Blood Urea Nitrogen 52 mg/dL (9-20); Calcium 7.9 mg/dL (8.4-10.2); Carbon Dioxide 24 mmol/L (22-30); Chloride 104 mmol/L (98-107); Estimated CRCL calculation 24 ml/min; Estimated Glomerular Filt Rate 28; Glucose 184 mg/dL (65-110); Potassium 3.8 mmol/L (3.4-5.0); Sodium 137 mmol/L (137-145)
[2023-07-15 08:29] VITALS: PULSE 53
[2023-07-15] MEDS: carvediloL 12.5 MG TABLET PO (08:29)
[2023-07-15] MEDS: APIXABAN 2.5 MG TABLET PO (08:29)
[2023-07-15] MEDS: ATORVASTATIN 10 MG TABLET PO (08:29)
[2023-07-15] MEDS: BUMETANIDE 1 MG TABLET 2 MG PO (08:29)
[2023-07-15] MEDS: MAGNESIUM OXIDE 400 MG TABLET PO (08:29)
[2023-07-15] MEDS: CHOLECALCIFEROL 1,000 UNITS TABLET 2000 UNITS PO (08:29)
[2023-07-15] MEDS: allopurinoL 100 MG TABLET PO (08:29)
[2023-07-15 08:41] LABS: Glucose Point of Care 191 mg/dl (65-105)
--- NOTE | 2023-07-15 12:15 | PM.PNNEP ---
Progress Note: A&P Assessment and Plan (1) LINDSEY (acute kidney injury): Code(s): N17.9 - Acute kidney failure, unspecified Status: Acute Assessment and Plan: suspect due to chronic prerenal azotemia worsened by need for chronic diuretic therapy evaluation to date: renal ultrasound with left hydronephrosis urine electrolytes are prerenal CPK normal UA unremarkable no further improvement with dopamine so discontinued Urology recommendations noted CT scan results noted.... bilateral kidney masses measuring up to 3.1 cm on the left which may be hemorrhagic cysts or less likely neoplasms. Abdomen MRI without and with contrast is recommended unable to do MRI (patient has hardware) HD tomorrow will need outpatient dialysis on discharge -- outpatient schedule finalized for M/W/F at [facility] (2) Stage 3b chronic kidney disease: Code(s): N18.32 - Chronic kidney disease, stage 3b Status: Chronic Assessment and Plan: baseline creatinine runs ~ 2.0 - 2.5mg/dl due to biopsy proven hypertensive and diabetic nephrosclerosis his underlying CHF and need for diuretic therapy are playing a role as well (3) Edema: Code(s): R60.9 - Edema, unspecified Status: Acute Assessment and Plan: worsening with subsequent admission off dopamine transitioned to oral diuretics follow clinical exam, daily weights, and I/Os fluid removal with HD as tolerated (4) Congestive heart failure: Code(s): I50.9 - Heart failure, unspecified Status: Chronic Assessment and Plan: suspect acute on chronic diastolic heart failure based on history repeat Echo noted Cardiology following fluid removal with HD to maintain/achieve euvolemia (5) Essential (primary) hypertension: Code(s): I10 - Essential (primary) hypertension Status: Chronic Assessment and Plan: reasonable control follow trend of hemodynamis (6) Iron deficiency anemia: Qualifiers: Iron deficiency anemia type: unspecified iron deficiency Qualified Code(s): D50.9 - Iron deficiency anemia, unspecified Code(s): D50.9 - Iron deficiency anemia, unspecified Status: Acute Assessment and Plan: partly related to LINDSEY and CKD on IV venofer while hospitalized PRBC transfusion per protocol he 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 Will continue to follow. Subjective Date/time seen: 07/15/23 12:15 Interval history: Follow-up for acute kidney injury/acute renal failure on chronic kidney disease -- now requiring hemodialysis. Tolerated dialysis treatment yesterday without any issues or problems; feels reasonably well; no issues/events overnight or earlier this morning. Exam Narrative: General: WD/WN male in NAD Heart: normal S1 and S2; IRRR, no rub Lungs: clear anteriorly; decreased at bases Abdomen: soft, nontender, nondistended, positive bowel sounds Extremities: no cyanosis or clubbing; 1 - 2+ edema Skin: no nodules Objective Data Vital Signs Vital Signs: Vital Signs Temp Pulse Resp BP Pulse Ox O2 Del Method 07/15/23 08:32 Room Air 07/15/23 08:29 53 L 07/15/23 05:57 98 F 53 L 16 109/55 L 98 07/14/23 23:51 54 L 07/14/23 20:00 Room Air 07/14/23 22:00 98.8 F 52 L 18
--- NOTE | 2023-07-15 12:15 | P.PNNP_ITS ---
Progress Note: A&P Assessment and Plan (1) LINDSEY (acute kidney injury): Code(s): N17.9 - Acute kidney failure, unspecified Status: Acute Assessment and Plan: * suspect due to chronic prerenal azotemia worsened by need for chronic diuretic therapy * evaluation to date: * renal ultrasound with left hydronephrosis * urine electrolytes are prerenal * CPK normal * UA unremarkable * no further improvement with dopamine so discontinued * Urology recommendations noted * CT scan results noted.... bilateral kidney masses measuring up to 3.1 cm on the left which may be hemorrhagic cysts or less likely neoplasms. Abdomen MRI without and with contrast is recommended * unable to do MRI (patient has hardware) * HD tomorrow * will need outpatient dialysis on discharge -- outpatient schedule finalized for M// at [facility] (2) Stage 3b chronic kidney disease: Code(s): N18.32 - Chronic kidney disease, stage 3b Status: Chronic Assessment and Plan: * baseline creatinine runs ~ 2.0 - 2.5mg/dl * due to biopsy proven hypertensive and diabetic nephrosclerosis * his underlying CHF and need for diuretic therapy are playing a role as well (3) Edema: Code(s): R60.9 - Edema, unspecified Status: Acute Assessment and Plan: * worsening with subsequent admission * off dopamine * transitioned to oral diuretics * follow clinical exam, daily weights, and I/Os * fluid removal with HD as tolerated (4) Congestive heart failure: Code(s): I50.9 - Heart failure, unspecified Status: Chronic Assessment and Plan: * suspect acute on chronic diastolic heart failure based on history * repeat Echo noted * Cardiology following * fluid removal with HD to maintain/achieve euvolemia (5) Essential (primary) hypertension: Code(s): I10 - Essential (primary) hypertension Status: Chronic Assessment and Plan: * reasonable control * follow trend of hemodynamis (6) Iron deficiency anemia: Qualifiers: Iron deficiency anemia type: unspecified iron deficiency Qualified Code(s): D50.9 - Iron deficiency anemia, unspecified Code(s): D50.9 - Iron deficiency anemia, unspecified Status: Acute Assessment and Plan: * partly related to LINDSEY and CKD * on IV venofer while hospitalized * PRBC transfusion per protocol * he reports he has antibodies so transfusion may be difficult * Epogen with HD * follow trend of H/H (7) Type 2 diabetes mellitus with diabetic neuropathy: Qualifiers: Diabetes mellitus senior care insulin use: without assistant terminal manager use Qualified Code(s): E11.40 - Type 2 diabetes mellitus with diabetic neuropathy, unspecified Code(s): E11.40 - Type 2 diabetes mellitus with diabetic neuropathy, unspecified Status: Chronic Assessment and Plan: * follow accu-cheks * glycemic control per hospitalists Not opposed to discharge from renal perspective if otherwise medically stable and outpatient disposition finalized. Will continue to follow. Subjective Date/time seen: 07/15/23 12:15 Interval history: Follow-up for acute kidney injury/acute renal failure on chronic kidney disease -- now requiring hemodialysis. Tolerated dialysis treatment yesterday without any issues or problems; feels reasonably well; no issues/events overnight or earlier this morning. Exam Narrative: General: WD/WN male in NAD Heart: normal S1 a
[2023-07-15 12:23] LABS: Glucose Point of Care 232 mg/dl (65-105)
[2023-07-15] MEDS: INSULIN ASPART (*BKC) 100 UNITS/ML SUB-Q (12:37)
--- NOTE | 2023-07-15 12:54 | PM.DS ---
DS: Admitting Diagnosis Discharge Date 07/15/23 Admitting Diagnosis Leg edema DS: Discharge Diagnosis Discharge Diagnosis (1) Abdominal pain: Code(s): R10.9 - Unspecified abdominal pain Status: Acute (2) Acute on chronic kidney failure: Code(s): N17.9 - Acute kidney failure, unspecified; N18.9 - Chronic kidney disease, unspecified Status: Acute (3) Chronic anemia: Code(s): D64.9 - Anemia, unspecified Status: Acute (4) Fever: Qualifiers: Fever type: unspecified Qualified Code(s): R50.9 - Fever, unspecified Code(s): R50.9 - Fever, unspecified Status: Inactive (5) Atrial fibrillation: Code(s): I48.91 - Unspecified atrial fibrillation Status: Acute (6) Acute on chronic diastolic CHF (congestive heart failure): Code(s): I50.33 - Acute on chronic diastolic (congestive) heart failure Status: Acute (7) Shingles: Code(s): B02.9 - Zoster without complications Status: Acute (8) Type 2 diabetes mellitus with diabetic neuropathy: Qualifiers: Diabetes mellitus numerical control machine operator insulin use: without numerical control machine operator use Qualified Code(s): E11.40 - Type 2 diabetes mellitus with diabetic neuropathy, unspecified Code(s): E11.40 - Type 2 diabetes mellitus with diabetic neuropathy, unspecified Status: Chronic (9) Electrolyte abnormality: Code(s): E87.8 - Other disorders of electrolyte and fluid balance, not elsewhere classified Status: Acute (10) Thrombocytopenia: Code(s): D69.6 - Thrombocytopenia, unspecified Status: Acute (11) Umbilical hernia: Code(s): K42.9 - Umbilical hernia without obstruction or gangrene Status: Chronic DS: Summary Hospital Course Reason for hospitalization: 83yo male with CHF, pulm HTN, CKD, DM, HT and chronic anemia who presented to the ED for leg swelling and found to have CHF exacerbation, LINDSEY, and anemia. Please see H&P for details. Hospital Course: (1) Abdominal pain: Patient with worsening abdominal pain yesterday.? No nausea, vomiting or diarrhea.? He is still not eating as much but staff documenting that patient is eating 50-100% of meals.? CT scan on 07/09 showing cholelithiasis and pericholecystic fluid and possible inflammatory changes.? He also had mild diffuse mesenteric edema and trace ascites with moderate body wall edema.? Cystitis versus bladder wall thickening noted as well.? Patient is voiding normally.? UA was clear on 07/10/2023.? RUQ US on 07/10 showed gallbladder wall thickening with mobile gallstone without gallbladder dilation or Atkins sign.? Findings suggest at the gallbladder wall thickening is much more likely cardiogenic in etiology related to fluid overload.? HIDA was normal General surgery did not have any further recommendations. (2) Acute on chronic kidney failure: Patient presents with increasing leg edema likely d/t hypervolemia from volume overload with significant bilateral lower extremity edema with mild congestive changes on chest x-ray Cr was 3.2 and climbed to 3.6 Venous Doppler shows no DVT He was on metolazone without benefit. Appreciate cardiology recommendations Pt was on iv bumex but now changed to oral Echo shows diastolic heart failure HD started on 07/05. HD arrangements for discharge to continue -- (3) Chronic anemia: Suspecting acute blood loss anemia with underlying chronic anemia secondary to chronic renal failure Patient was on Xarelto for AFib that was held for procedure Hemoglobin 10.August but chronically low in the past Hgb 7.0 on admission and trended down to 6.9. Transfused 1 pack RBC 06/28 Iron 19 with normal TIBC and TSat 6% c/w iron deficiency. B12/Folate okay. Pt had venofer and Epogen per engineering technical analyst As per GI, pt had egd and colonoscopy recently, hb is stable no occult bleeding no need for any intervention? Hgb stable in the 7-8 range now. Continue iron Changed to Eliquis and H
[2023-07-15 13:26] LABS: SARS-CoV-2 RNA PCR Negative (Negative)
== END 2023-07-15 13:46 | DRG 291 ==
LOC: ANHED 17:27 → ANH3MEDSUR 17:55 → ANHIMU 06-28 15:28 → ANHICU 07-01 09:00 → ANHIMU 07-01 09:27 → ANH3MED 07-06 00:30
PROVIDERS: Family Medicine; Hospitalist; Internal Medicine Nephrology; Physician Assistant; Student in an Organized Health Care Education/Training Program; Surgery; Admitting Provider Internal Medicine; Emergency Provider Emergency Medicine; PCP Family Medicine; Visit Provider Internal Medicine
PROC: 0JH60XZ Insertion of Tunneled Vascular Access Device into Chest Subcutaneous Tissue and Fascia, Open Approach (ICD-10-PCS; CPT 36908; principal; 2023-07-04 13:30)
DX: I13.0 Hypertensive heart and chronic kidney disease with heart failure and stage 1 through stage 4 chronic kidney disease, or unspecified chronic kidney disease (principal); I50.33 Acute on chronic diastolic (congestive) heart failure; N17.9 Acute kidney failure, unspecified; I48.20 Chronic atrial fibrillation, unspecified; N13.30 Unspecified hydronephrosis; E11.22 Type 2 diabetes mellitus with diabetic chronic kidney disease; N18.32 Chronic kidney disease, stage 3b; E11.40 Type 2 diabetes mellitus with diabetic neuropathy, unspecified; D69.6 Thrombocytopenia, unspecified; I27.20 Pulmonary hypertension, unspecified; D51.9 Vitamin B12 deficiency anemia, unspecified; N40.0 Benign prostatic hyperplasia without lower urinary tract symptoms; D63.1 Anemia in chronic kidney disease; K42.9 Umbilical hernia without obstruction or gangrene; K80.20 Calculus of gallbladder without cholecystitis without obstruction; R50.82 Postprocedural fever; B02.9 Zoster without complications; N28.89 Other specified disorders of kidney and ureter; D50.9 Iron deficiency anemia, unspecified; Z96.653 Presence of artificial knee joint, bilateral; Z79.01 Long term (current) use of anticoagulants; Z79.85 Long-term (current) use of injectable non-insulin antidiabetic drugs; Z20.822 Contact with and (suspected) exposure to COVID-19; Z11.52 Encounter for screening for COVID-19
CPT/HCPCS: 36415; 36430; 71045; 74176; 76705; 76775; 77001; 78226; 80048; 80053; 80069; 81003; 82550; 82570; 82607; 82746; 82948; 83010; 83036; 83540; 83550; 83605; 83735; 83880; 84156; 84300; 84443; 84540; 85025; 85027; 85046; 86704; 86706; 86850; 86860; 86870; 86880; 86900; 86901; 86902; 86922; 87340; 87635; 87637; 93005; 93306; 93880; 96374; 97110; 97116; 97161; 97166; 97530; 97535; 99285; A9270; A9537; C1750; G0257; G0378; J0690; J1265; J1644; J1756; J1815; J1940; J2704; J3010; J7030; J7040; J7050; P9016; P9047; Q4081; Q5105

== ENCOUNTER 2023-08-13 07:40 | Inpatient (IN) | payer MEDICARE, SELFPAY ==
[2023-08-13] VITALS (13 sets, daily range): BP systolic 99–143; BP diastolic 59–81; PULSE 53–69; RESP 12–22; TEMP 36.3–36.8; O2SAT 94–99
--- NOTE | ~2023-08-13 | XR_ITS ---
EXAMINATION: XR fl guide central line place DATE: 08/15/2023 15:47 INDICATION: Dialysis catheter placement TECHNIQUE: A single fluoroscopic image of the central chest was obtained during procedure performed romario Julian. Radiologist was not present for the imaging or procedure. The amount of fluoroscopy time used during this procedure was 0.4 minutes. COMPARISON: None. FINDINGS: Large bore dual lumen internal jugular central venous catheter extending caudally from the superior vena cava with distal tip in the right atrium. Couple spinal stimulator leads project the ce ntral canal at the lower thoracic spine. IMPRESSION: 1. Fluoroscopy utilized during central venous catheter placement with distal tip in the right atrium. See procedure note report for further detail. Reviewed, dictated and finalized at location A. LE FOLD MACHINE OPERATOR IMPRESSION: 1. Fluoroscopy utilized during central venous catheter placement with distal ti p in the right atrium. See procedure note report for further detail.
--- NOTE | ~2023-08-13 | XR_ITS ---
XR chest 1V portable DATE: 08/13/2023 12:01 INDICATION: Dialysis catheter dislodged from right side. Preoperative evaluation. TECHNIQUE: Portable AP views on 08/13/2023 at 1155 hours COMPARISON: 07/09/2023 portable AP chest FINDINGS: The right internal jugular dialysis catheter of 07/09/2023 is no longer present. There are electrodes overlying the thoracic spinal canal. Cardiomegaly. Aortic unfolding. There is pulmonary vascular congestion and redistribution. There is p rominence of minor fissure suggesting subpleural edema. Alyce B-lines are noted, consistent with pul monary interstitial edema. There is mild infiltrate or atelectasis primarily in the lower lung zones, left greater than right. No pleural effusion or pneumothorax is evident. Osteopenia IMPRESSION: Cardiomegaly, mild congestive heart failure Reviewed, dictated and finalized at location B. UCTION MACHINE OPERATOR
--- NOTE | ~2023-08-13 | XR_ITS ---
EXAMINATION: XR chest port-a-cath/central Exam Date/Time: 08/15/2023 16:05 AGRICULTURAL EXTENSION EDUCATOR HISTORY: DIALYSIS CATH POST OP Comparison: 08/13/2023. RESULT: Lines, tubes, and devices: New right IJ dialysis catheter, tip terminating in the upper SVC. Stimula tor leads project over the midthoracic spine. Lungs and pleura: Senescent change with streaky areas of scar/atelectasis, otherwise clear. Cardiomediastinal silhouette: Stable. Other: No acute osseous or upper abdominal finding. IMPRESSION: Right IJ dialysis catheter terminating in the upper SVC. Reviewed, dictated and finalized at location K. CULTURAL EXTENSION EDUCATOR
[2023-08-13 09:10] LABS: Hematocrit 35.2 % (42.0-52.0); Hemoglobin 10.1 g/dL (14.0-18.0); Immature Granulocyte Absolute 0.01 K/mm3 (0.00-0.031); Immature Granulocyte Percent A 0.2 % (0-0.5); Lymphocytes Absolute Auto 0.89 K/mm3 (0.9-3.2); Mean Corpuscular HGB Conc 28.7 g/dl (32-36); Mean Corpuscular Hemoglobin 25.7 pg (26-34); Mean Corpuscular Volume 89.6 fl (80-100); Mean Platelet Volume 12.7 fl (7.4-10.4); Monocytes Absolute Auto 0.5 K/mm3 (0.1-0.6); Monocytes Percent Auto 12.8 % (2.6-8.5); Neutrophils Absolute Auto 2.6 K/mm3 (1.3-6.7); Platelet Count Result 115 k/mm3 (150-375); Red Blood Count 3.93 M/mm3 (4.6-6.20); Red Cell Distribution Width 20.9 % (11.5-14.5); White Blood Count 4.1 K/mm3 (4.5-10.0)
[2023-08-13 09:15] LABS: Anion Gap 8 mmol/L (8-16); Blood Urea Nitrogen 49 mg/dL (9-20); Calcium 8.1 mg/dL (8.4-10.2); Carbon Dioxide 34 mmol/L (22-30); Chloride 95 mmol/L (98-107); Estimated CRCL calculation 16 ml/min; Estimated Glomerular Filt Rate 18; Glucose 196 mg/dL (65-110); Potassium 3.6 mmol/L (3.4-5.0); Sodium 137 mmol/L (137-145)
[2023-08-13 09:20] LABS: INR 1.7; Prothrombin Time 20.6 Seconds (11.1-14.7)
[2023-08-13 09:23] LABS: Hypochromasia 1+ (NORMAL); Schistocytes Rare (NORMAL)
--- NOTE | 2023-08-13 11:42 | ECG_ITS ---
Measurements Intervals [place] Rate: 52 P: [place]: 0 QRS: -6 QRSD: 156 T: 244 QT: 505 QTc: 471 Interpretive Statements ATRIAL FIBRILLATION WITH SLOW VENTRICULAR RESPONSE VENTRICULAR PREMATURE COMPLEX RIGHT BUNDLE BRANCH BLOCK ST-T WAVE ABNORMALITY IN ANTEROLAT/INF LEADS- CONSIDER ISCHEMIA BASELINE WANDER- II, III, AVF ABNORMAL ECG COMPARED TO ECG 06/27/2023 15:50:10 HEART RATE HAS DECREASED ST-T WAVE ABNORMALITY NOW PRESENT Electronically Signed On 08-13-2023 12:41:47 STAFF PHARMACIST by Neo Nieto D.O.
--- NOTE | 2023-08-13 11:44 | ED.GENADULT ---
HPI - General Adult General Chief complaint: Wound/Laceration Stated complaint: dialysis cath came out Time Seen by Provider: 08/13/23 07:58 Source: patient and family Mode of arrival: ambulatory Limitations: no limitations History of Present Illness HPI narrative: 83-year-old with a history of AFib on Eliquis, CKD on on hemodialysis and diabetes presents to the ER with a dislodgement of the tunneled catheter last night. Patient states that he woke up noticed blood , later his sister betty came in applied pressure dressing . Patient is scheduled for dialysis today. He presently has no chest pain or shortness of breath. Denies any fever or chills. He endorses Dr. Zambrano community reinvestment act officer. Onset (ago): day(s) (1) Related Data Home Medications Medication Instructions Recorded Confirmed cholecalciferol (vitamin D3) 50 50 mcg PO DAILY 12/26/22 07/29/23 mcg (2,000 unit) capsule ferrous sulfate 325 mg (65 mg 650 mg PO .EVERY OTHER DAY 06/27/23 07/29/23 iron) tablet Allergies Allergy/AdvReac Type Severity Reaction Status Date / Time No Known Allergies Allergy Verified 07/29/23 15:57 Review of Systems Review of Systems: All systems reviewed & are unremarkable except as noted in HPI and below Constitutional: Constitutional: Reports no additional constitutional complaints Eyes: Eyes: Reports no additional eye complaints ENT: Reports system reviewed and no additional complaints, except as documented Cardiovascular: Cardiovascular: Reports no additional cardiovascular complaints Respiratory: Respiratory: Reports no additional respiratory complaints Musculoskeletal: Musculoskeletal: Reports no additional musculoskeletal complaints Integumentary/Breasts: Skin/Breast: Reports system reviewed and no additional complaints, except as docu Neurologic: Reports system reviewed and no additional complaints, except as documented [facility] Past Medical History Medical History Atrial fibrillation B12 deficiency anemia Benign prostatic hyperplasia Chronic anemia Chronic anticoagulation Chronic kidney disease, stage 3b Congestive heart failure Echocardiogram October 2020: Indeterminate diastolic function, EF 65-70%, mild right ventricular enlargement, mildly increased left ventricular wall thickness, mild left atrial enlargement, mild mitral valve regurgitation, mild tricuspid valve regurgitation, moderate pulmonary hypertension with RVSP 59, 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 Essential (primary) hypertension Hyperlipidemia associated with type 2 diabetes mellitus Hypertension associated with diabetes Iron deficiency anemia Mixed hyperlipidemia Pulmonary hypertension Umbilical hernia Surgical History Surgical History Normal colonoscopy (~2007) S/P insertion of spinal cord stimulator Status post bilateral knee replacements Status post cataract extraction of both eyes with insertion of intraocular lens Family History Family History Father Cerebrovascular accident Mother Hypertension Sibling Hypertension Kidney disease, chronic, end stage on dialysis Social History Social History Social History: Surrogate medical decision maker: Kathy Yanez, spouse. Code status: Full code. Smoking packs per day: 0.5 Smoking cigarettes per day: 10.0 Years smoked: 3 Smoking pack-years: 1.50 Smoking status: Never smoker Tobacco type: cigarettes Second hand tobacco smoke exposure: No Alcohol intake: never Substance use: never Substance use type: does not use Lack of Transportation: No Lack of Food: Never True Current Housing: I Have Housing Concerned About Future Housing: No Difficulty Paying Gas/Electric Bills: No Difficulty Paying for Meds: No
--- NOTE | 2023-08-13 13:18 | ADMGEN ---
This patient, Khalif Yanez, was admitted to Medical Room 248-. Patient/family oriented to hospital policies and general routines including ID bracelet, bed and alarms, visiting hours, pain management, procedures, bathroom and other care routines, personal items, smoking policy, room service/diet, and visiting hours. Information on how to activate the Rapid Response Team has been discussed. Patient/Family are encouraged to report perceived risks to care and to ask questions if they do not understand what they are told or what they should do.
--- NOTE | 2023-08-13 13:53 | PM.CNGS ---
Assessment and Plan Assessment and plan (1) Encounter regarding vascular access for dialysis for end-stage renal disease: Code(s): N18.6 - End stage renal disease; Z99.2 - Dependence on renal dialysis Status: Acute Assessment and Plan: The patient's Duraflow catheter became dislodged at home. Nephrology recommended admission for vascular access to resume dialysis as soon as possible. The patient took his Eliquis this morning around 7:00 am. It would be ideal to try placing his tunnelled hemodialysis catheter on Friday to allow time for his Eliquis to wear off and decrease his risks of bleeding. If he develops any signs of fluid overload and needs it done more urgently, then we could consider proceeding sooner or placing a temporary dialysis catheter if needed. Discussed this with the patient including the details of tunnelled permacath placement. Description of the procedure, risks, benefits, and alternatives were discussed in detail. He agrees. Will allow him to have a renal diet today. (2) End-stage renal disease (ESRD): Code(s): N18.6 - End stage renal disease Status: Acute (3) Chronic anticoagulation: Code(s): Z79.01 - terminal computer operator (current) use of anticoagulants Status: Chronic Assessment and Plan: On anticoagulation for atrial fibrillation. Hold Eliquis for surgery. 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 insulin use: without retirement use Qualified Code(s): E11.40 - Type 2 diabetes mellitus with diabetic neuropathy, unspecified Code(s): E11.40 - Type 2 diabetes mellitus with diabetic neuropathy, unspecified Status: Chronic (5) Congestive heart failure: Qualifiers: Heart failure type: diastolic Heart failure chronicity: acute on chronic Qualified Code(s): I50.33 - Acute on chronic diastolic (congestive) heart failure Code(s): I50.9 - Heart failure, unspecified Status: Chronic (6) Atrial fibrillation: Code(s): I48.91 - Unspecified atrial fibrillation Status: Acute (7) Diabetes: Code(s): E11.9 - Type 2 diabetes mellitus without complications Status: Chronic (8) Anemia of chronic disease: Code(s): D63.8 - Anemia in other chronic diseases classified elsewhere Status: Chronic Plan I have discussed the patient's case and plan of care with Dr. Julian. Thank you for allowing us to see the patient in consultation and we will continue to follow along with you. History of Present Illness Consult details Consult date: 08/13/23 Reason for consult: other (Lost vascular access for hemodialysis) Requesting physician: Gareth Cortez MD Narrative: This is an 83-year-old man with end-stage renal disease on hemodialysis and multiple other medical problems, who presented to the ER today after finding his tunneled hemodialysis catheter had fallen out this morning. He reportedly woke up and noticed blood. He found the catheter lying in bed and assumes it dislodged in his sleep. His [id number] applied pressure and a bandage. He went ahead and took his morning meds this morning, including his Eliquis around 7:00 a.m.. He attempted to go to dialysis today and they referred him to the ER considering he no longer had vascular access. Labs showed his BUN is 49, creatinine 4.0. Nephrology was consulted and recommended admission for placement of vascular access for hemodialysis. Our service was consulted for vascular access. He is now seen on the medical floor. He is currently NPO. He denies any shortness of breath, chest pain, or increased lower extremity swelling. He previously had a right IJ tunneled Duraflow catheter placed by Dr. Green on 07/04/2023. He denies any recent issues with his catheter and believes he has been on schedule with his treatments on Mondays, Wednesdays, and Fridays. Review of Systems Review of Systems: All systems reviewed & are unremark
--- NOTE | 2023-08-13 14:25 | PM.CNNEP ---
Assessment and Plan Assessment and plan (1) LINDSEY (acute kidney injury): Code(s): N17.9 - Acute kidney failure, unspecified Status: Acute Assessment and Plan: due to chronic prerenal azotemia worsened by need for chronic diuretic therapy previous evaluation to date: renal ultrasound with left hydronephrosis urine electrolytes are prerenal CPK normal UA unremarkable initiated on SHEETER HELPER/dialysis for optimization of fluid status/treatment of volume overload as well as clearance unclear if this will be permanent or temporary follow outpatient labs and UOP for potential renal recovery plan HD Friday once new HD catheter in place (2) Chronic kidney disease, stage 3b: Code(s): N18.32 - Chronic kidney disease, stage 3b Status: Chronic Assessment and Plan: baseline creatinine had been running ~ 2.0 - 2.5mg/dl (as far back as April 2023) due to biopsy proven hypertensive and diabetic nephrosclerosis his underlying CHF and need for diuretic therapy are playing a role as well on SHEETER HELPER/dialysis due to diuretic resistance and azotemia (3) Displacement of central venous catheter (CVC): Code(s): T82.528A - Displacement of other cardiac and vascular devices and implants, initial encounter Status: Acute Assessment and Plan: as noted by history HD catheter fell out overnight prior to admission Surgery recommendations noted holding Eliquis new tunneled HD catheter to be placed on Friday (08/15/23) (4) Anemia: Code(s): D64.9 - Anemia, unspecified Status: Chronic Assessment and Plan: due to LINDSEY on CKD Epogen with HD follow trend of H/H (5) Essential (primary) hypertension: Code(s): I10 - Essential (primary) hypertension Status: Chronic Assessment and Plan: reasonable control on midodrine PRN with dialysis due to intradialytic hypotension follow trend of hemodynamics (6) Diabetes: Code(s): E11.9 - Type 2 diabetes mellitus without complications Status: Chronic Assessment and Plan: follow accu-cheks glycemic control per hospitalists I will continue follow the patient with you while he remains hospitalized and make further recommendations as needed. Thank you for allowing me to participate in the care of this patient. History of Present Illness Reason for Consult Consult date: 08/13/23 Reason for consult: acute renal failure (on chronic kidney disease requiring dialysis) Chief Complaint Chief complaint: esrd,vascular acess History of Present Illness Narrative: The patient is an 83-year-old male with a past medical history as outlined below who presented to [facility] Emergency room from his outpatient dialysis center for further evaluation of loss of vascular access for hemodialysis. The patient presented to his outpatient dialysis center for his scheduled dialysis treatment earlier today but it was discovered that his tunneled hemodialysis catheter apparently fell out overnight or earlier this morning. The patient states that when he woke up this morning he noticed a dialysis catheter was not in his chest and there was some blood stains on his bed. He found the catheter in his bed and he is unclear what exactly happened but assumes that it was accidentally pulled out when he was sleeping. He presented to his outpatient dialysis center this morning on the assumption that they would take care of this issue. He was subsequently directed to the emergency room for further assessment of this problem. Workup and evaluation in the emergency room demonstrated the patient to be hemodynamically stable and in no acute distress. Routine blood test demonstrated labs consistent with his known chronic kidney disease with no critical electrolyte abnormalities or evidence of overt volume overload. As he was relatively stable, attempts were made to arrange for outpatient placement of a
--- NOTE | 2023-08-13 14:25 | P.CONNP_ITS ---
Assessment and Plan Assessment and plan (1) LINDSEY (acute kidney injury): Code(s): N17.9 - Acute kidney failure, unspecified Status: Acute Assessment and Plan: * due to chronic prerenal azotemia worsened by need for chronic diuretic therapy * previous evaluation to date: * renal ultrasound with left hydronephrosis * urine electrolytes are prerenal * CPK normal * UA unremarkable * initiated on FINE PATCHER/dialysis for optimization of fluid status/treatment of volume overload as well as clearance * unclear if this will be permanent or temporary * follow outpatient labs and UOP for potential renal recovery * plan HD Friday once new HD catheter in place (2) Chronic kidney disease, stage 3b: Code(s): N18.32 - Chronic kidney disease, stage 3b Status: Chronic Assessment and Plan: * baseline creatinine had been running ~ 2.0 - 2.5mg/dl (as far back as April 2023) * due to biopsy proven hypertensive and diabetic nephrosclerosis * his underlying CHF and need for diuretic therapy are playing a role as well * on FINE PATCHER/dialysis due to diuretic resistance and azotemia (3) Displacement of central venous catheter (CVC): Code(s): T82.528A - Displacement of other cardiac and vascular devices and implants, initial encounter Status: Acute Assessment and Plan: * as noted by history * HD catheter fell out overnight prior to admission * Surgery recommendations noted * holding Eliquis * new tunneled HD catheter to be placed on Friday (08/15/23) (4) Anemia: Code(s): D64.9 - Anemia, unspecified Status: Chronic Assessment and Plan: * due to LINDSEY on CKD * Epogen with HD * follow trend of H/H (5) Essential (primary) hypertension: Code(s): I10 - Essential (primary) hypertension Status: Chronic Assessment and Plan: * reasonable control * on midodrine PRN with dialysis due to intradialytic hypotension * follow trend of hemodynamics (6) Diabetes: Code(s): E11.9 - Type 2 diabetes mellitus without complications Status: Chronic Assessment and Plan: * follow accu-cheks * glycemic control per hospitalists I will continue follow the patient with you while he remains hospitalized and make further recommendations as needed. Thank you for allowing me to participate in the care of this patient. History of Present Illness Reason for Consult Consult date: 08/13/23 Reason for consult: acute renal failure (on chronic kidney disease requiring dialysis) Chief Complaint Chief complaint: esrd,vascular acess History of Present Illness Narrative: The patient is an 83-year-old male with a past medical history as outlined below who presented to [facility] Emergency room from his outpatient dialysis center for further evaluation of loss of vascular access for hemodialysis. The patient presented to his outpatient dialysis center for his scheduled dialys is treatment earlier today but it was discovered that his tunneled hemodialysis catheter apparently fell out overnight or earlier this morning. The patient states that when he woke up this morning he noticed a dialysis catheter was not in his chest and there was some blood stains on his bed. He found the catheter in his bed and he is unclear what exactly happened but assumes that it was accidentally pulled out when he was sleeping. He presented to his outpatient dialysis center this morning on the assumption that they would take care of this issue. He was subsequently directed to the emergency room for fur
--- NOTE | 2023-08-13 15:09 | PM.IMHP ---
H&P: HPI History of Present Illness Date/Time: 08/13/23 15:09 Chief Complaint: Lost tunnel catheter Narrative: 83-year-old with a history of AFib on Eliquis, dm, chf, CKD on on hemodialysis and diabetes lost vascular access for dialysis. Line just fell out pt denies any infection, pt will have temporary access today and will have permanent access next week under surgery team. Patient is scheduled for dialysis today. DR Julian surgery consulted DR Pressley nephrology consulted. pt takes eliquis procedure planned friday Review of Systems Review of Systems: No specific complaints PMFSH Past Medical History Medical History Atrial fibrillation B12 deficiency anemia Benign prostatic hyperplasia Chronic anemia Chronic anticoagulation Chronic kidney disease, stage 3b Congestive heart failure Echocardiogram October 2020: Indeterminate diastolic function, EF 65-70%, mild right ventricular enlargement, mildly increased left ventricular wall thickness, mild left atrial enlargement, mild mitral valve regurgitation, mild tricuspid valve regurgitation, moderate pulmonary hypertension with RVSP 59, 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 Essential (primary) hypertension Hyperlipidemia associated with type 2 diabetes mellitus Hypertension associated with diabetes Iron deficiency anemia Mixed hyperlipidemia Pulmonary hypertension Umbilical hernia Surgical History Surgical History Normal colonoscopy (~2007) S/P insertion of spinal cord stimulator Status post bilateral knee replacements Status post cataract extraction of both eyes with insertion of intraocular lens Family History Family History Father Cerebrovascular accident Mother Hypertension Sibling Hypertension Kidney disease, chronic, end stage on dialysis Social History Social History Social History: Surrogate medical decision maker: Kathy Yanez, spouse. Code status: Full code. Smoking packs per day: 0.5 Smoking cigarettes per day: 10.0 Years smoked: 3 Smoking pack-years: 1.50 Smoking status: Never smoker Tobacco type: cigarettes Second hand tobacco smoke exposure: No Alcohol intake: never Substance use: never Substance use type: does not use Do You Feel Safe in your Home?: Yes Lack of Transportation: No Lack of Food: Never True Current Housing: I Have Housing Concerned About Future Housing: No Difficulty Paying Gas/Electric Bills: No Difficulty Paying for Meds: No Currently Unemployed: No Education: Don't Know Difficulty w/ Childcare or Family Care: No Living arrangements: with family Additional living arrangements comments: Lives with spouse of nearly 60 years. They have a son and daughter. Occupation/Education: retired Additional occupation/education comments: Retired from working with [employer]. Spiritual care concerns: No Meds Home Medications and Allergies Home Medications Medication Instructions Recorded Confirmed Type blood pressure monitor #1 01/10/20 08/13/23 Rx blood sugar diagnostic (Blood #100 01/10/20 08/13/23 Rx Glucose Test strips) blood-glucose meter #1 01/10/20 08/13/23 Rx lancets #200 01/10/20 08/13/23 Rx pen needle, diabetic 31 gauge x #100 08/23/22 08/13/23 Rx 5/16 (BD Ultra-Fine Short Pen Needle) cholecalciferol (vitamin D3) 50 50 mcg PO DAILY 12/26/22 08/13/23 History mcg (2,000 unit) capsule allopurinol 100 mg tablet 100 mg PO DAILY #90 tabs 01/30/23 08/13/23 Rx atorvastatin 10 mg tablet 10 mg PO DAILY #90 tabs 03/14/23 08/13/23 Rx albuterol sulfate 90 mcg/actuation 2 puff inhalation Q6HRT PRN 04/23/23 08/13/23 Rx aerosol inhaler (Proventil HFA) Shortness Of Breath #6.7 grams calcitr
[2023-08-13 15:33] LABS: Hemoglobin A1C 7.8 % (<5.7)
[2023-08-13] MEDS: BUMETANIDE 1 MG TABLET PO (17:15)
[2023-08-13 17:22] LABS: Glucose Point of Care 111 mg/dl (65-105)
[2023-08-13] MEDS: carvediloL 12.5 MG TABLET BY MOUTH (21:18)
[2023-08-13 21:40] LABS: Glucose Point of Care 236 mg/dl (65-105)
[2023-08-14 05:37] LABS: Hematocrit 32.3 % (42.0-52.0); Hemoglobin 9.3 g/dL (14.0-18.0); Mean Corpuscular HGB Conc 28.8 g/dl (32-36); Mean Corpuscular Hemoglobin 25.6 pg (26-34); Mean Platelet Volume 10.8 fl (7.4-10.4); Platelet Count Result 101 k/mm3 (150-375); Red Blood Count 3.63 M/mm3 (4.6-6.20); Red Cell Distribution Width 20.7 % (11.5-14.5); White Blood Count 4.4 K/mm3 (4.5-10.0)
[2023-08-14 05:50] LABS: Anion Gap 8 mmol/L (8-16); Blood Urea Nitrogen 52 mg/dL (9-20); Calcium 7.8 mg/dL (8.4-10.2); Carbon Dioxide 30 mmol/L (22-30); Chloride 98 mmol/L (98-107); Estimated CRCL calculation 15 ml/min; Estimated Glomerular Filt Rate 16; Glucose 127 mg/dL (65-110); INR 1.5; Phosphorus 4.1 mg/dL (2.5-4.5); Potassium 3.3 mmol/L (3.4-5.0); Prothrombin Time 19.1 Seconds (11.1-14.7); Sodium 136 mmol/L (137-145)
[2023-08-14 06:00] VITALS: BP 116/53; PULSE 63; RESP 20; TEMP 36.3; O2SAT 94
[2023-08-14 06:41] LABS: Hepatitis B Surface Antigen Negative (Negative)
[2023-08-14 06:58] LABS: Hepatitis B Surface Anti Res Negative
[2023-08-14 08:00] VITALS: BP 118/62; PULSE 62; RESP 19; TEMP 36.4; O2SAT 94
[2023-08-14 08:53] LABS: Glucose Point of Care 147 mg/dl (65-105)
[2023-08-14] MEDS: BUMETANIDE 1 MG TABLET PO ×2 (09:36→16:37)
[2023-08-14] MEDS: allopurinoL 100 MG TABLET PO (09:36)
[2023-08-14 09:37] VITALS: PULSE 60
[2023-08-14] MEDS: ATORVASTATIN 10 MG TABLET PO (09:37)
[2023-08-14] MEDS: carvediloL 12.5 MG TABLET BY MOUTH ×2 (09:37→20:42)
--- NOTE | 2023-08-14 09:49 | PM.PNGS ---
Progress Note: A&P Assessment and Plan (1) Encounter regarding vascular access for dialysis for end-stage renal disease: Code(s): N18.6 - End stage renal disease; Z99.2 - Dependence on renal dialysis Status: Acute Assessment and Plan: Plan for insertion tunneled hemodialysis catheter by Dr. Julian tomorrow. Will make patient NPO after midnight and add labs for the morning. Discussed procedure with patient yesterday. He still agrees with plan. No additional questions today. (2) End-stage renal disease (ESRD): Code(s): N18.6 - End stage renal disease Status: Acute (3) Chronic anticoagulation: Code(s): Z79.01 - telephonic rn (current) use of anticoagulants Status: Chronic Assessment and Plan: Continue to hold Eliquis Plan I have discussed the patient's case and plan of care with Dr. Julian. Subjective Subjective Date/Time Seen: 08/14/23 09:49 Patient reports: no new complaints Interval history: Patient seen this morning. No new complaints today. Denies shortness of breath or increased leg swelling. Eliquis is on hold. Review of Systems Review of Systems: All systems reviewed & are unremarkable except as noted in HPI and below Exam Const: General: comfortable and no acute distress Orientation/consciousness: patient oriented x3 Chest: Other: Dressing dry and intact. Resp: Effort & Inspection: normal respiratory effort Auscultation: clear to auscultation bilaterally Extrem: General: edema (Minimal bilateral lower extremity edema, reportedly improved ) Objective Data Vital Signs Vital Signs: Vital Signs - 24 hr 08/13/23 10:01 08/13/23 11:38 08/13/23 12:15 Temperature Pulse Rate 64 58 L 53 L Respiratory Rate 16 16 17 Blood Pressure 136/73 134/81 143/60 H Pulse Oximetry 94 99 Oxygen Delivery 08/13/23 14:00 08/13/23 17:59 08/13/23 21:18 Temperature 98.3 F Pulse Rate 57 L 57 L 64 Respiratory Rate 16 16 Blood Pressure 99/78 L Pulse Oximetry 99 99 Oxygen Delivery Room Air 08/13/23 22:00 08/13/23 23:55 08/14/23 06:00 Temperature 97.3 F L 97.7 F 97.4 F L Pulse Rate 56 L 56 L 63 Respiratory Rate 19 19 20 Blood Pressure 111/76 136/70 116/53 L Pulse Oximetry 95 99 94 Oxygen Delivery 08/14/23 08:00 08/14/23 09:37 Temperature 97.6 F Pulse Rate 62 60 Respiratory Rate 19 Blood Pressure 118/62 Pulse Oximetry 94 Oxygen Delivery Intake/Output Intake/Output: Intake & Output 08/11/23 08/12/23 08/13/23 08/14/23 23:59 23:59 23:59 23:59 Intake Total 690 480 Output Total 300 400 Balance 390 80 Meds/Results Medications: Active Medications Generic Name Dose Route Start Last Admin Trade Name Freq PRN Reason Stop Dose Admin Acetaminophen 650 mg 08/13/23 11:54 Acetaminophen 325 Mg Tablet PO Q4H PRN Mild Pain (1-3) or Fever Albuterol 2 puff 08/13/23 15:17 Albuterol Sulfate (*Sp) Aerosol 1 Puff INHALATION Q6HRT PRN Shortness Of Breath Allopurinol 100 mg 08/14/23 09:00 08/14/23 09:36 Allopurinol 100 Mg Tablet PO 100 mg DAILY CESAR Administration Atorvastatin Calcium 10 mg 08/14/23 09:00 08/14/23 09:37 Atorvastatin 10 Mg Tablet PO 10 mg DAILY CESAR Administration Bumetanide 1 mg 08/13/23 17:00 08/14/23 09:36 Bumetanide 1 Mg Tablet PO 1 mg BID CESAR Administration Carvedilol 12.5 mg 08/13/23 21:00 08/14/23 09:37 Carvedilol 12.5 Mg Tablet BY MOUTH 12.5 mg Q12HR CESAR Administration Dextrose 12.5 gm 08/13/23 15:18 Dextrose 50% 25 Gm/50 Ml Syringe IV PUSH PRN PRN Hypoglycemia Protocol Glucagon 1 mg 08/13/23 15:18 Glucagon For Inj 1 Mg Vial IM PRN PRN Hypoglycemia Protocol Glucose 15 gm 08/13/23 15:18 Glucose Oral Gel 15 Gm Of Glucse In 37.5 Gm Tube PO PRN PRN Hypoglycemia Protocol Dextrose 1,000 mls @ 100 mls/hr 08/13/23 15:18 Dextrose 5% 1,000 Ml IVPB PRN PRN
--- NOTE | 2023-08-14 11:22 | PM.IMPN ---
Progress Note: A&P Assessment and Plan (1) End-stage renal disease (ESRD): Code(s): N18.6 - End stage renal disease Status: Acute Assessment and Plan: Pt is on hemodialysis Creat is 4.3 today (2) Encounter regarding vascular access for dialysis for end-stage renal disease: Code(s): N18.6 - End stage renal disease; Z99.2 - Dependence on renal dialysis Status: Acute Assessment and Plan: pt takes eliquis procedure planned friday hold eliquis meanwhile (3) Essential (primary) hypertension: Code(s): I10 - Essential (primary) hypertension Status: Chronic Assessment and Plan: continue all other pts medications lipitor , bumex, coreg, midodrine bp is stable at 116/56 today (4) Diabetes mellitus with proteinuria: Code(s): E11.29 - Type 2 diabetes mellitus with other diabetic kidney complication; R80.9 - Proteinuria, unspecified Status: Chronic Assessment and Plan: hold victoza continue accuchecks and ssi while in hospital sugars is stable at 127 today (5) Congestive heart failure: Qualifiers: Heart failure type: diastolic Heart failure chronicity: acute on chronic Qualified Code(s): I50.33 - Acute on chronic diastolic (congestive) heart failure Code(s): I50.9 - Heart failure, unspecified Status: Chronic Assessment and Plan: continue all other pts medications lipitor , bumex, coreg, midodrine (6) Atrial fibrillation: Code(s): I48.91 - Unspecified atrial fibrillation Status: Acute Assessment and Plan: continue all other pts medications lipitor , bumex, coreg, midodrine Plan DVT prop SCD hold eliquis Subjective Date/time seen: 08/14/23 11:22 Interval history: 83-year-old with a history of AFib on Eliquis, dm, chf, CKD on on hemodialysis and diabetes lost vascular access for dialysis. Line just fell out. Pt due to have temporary cath placed tomorrow Holding Eliquis until then No other acute issues overnight Review of Systems Review of Systems: No specific complaints Objective Data Vital Signs Vital Signs: Vital Signs - 24 hr 08/13/23 11:38 08/13/23 12:15 08/13/23 14:00 Temperature 36.8 C Pulse Rate 58 L 53 L 57 L Respiratory Rate 16 17 16 Blood Pressure 134/81 143/60 H 99/78 L Pulse Oximetry 99 99 Oxygen Delivery 08/13/23 17:59 08/13/23 21:18 08/13/23 22:00 Temperature 36.3 C L Pulse Rate 57 L 64 56 L Respiratory Rate 16 19 Blood Pressure 111/76 Pulse Oximetry 99 95 Oxygen Delivery Room Air 08/13/23 23:55 08/14/23 06:00 08/14/23 08:00 Temperature 36.5 C 36.3 C L 36.4 C Pulse Rate 56 L 63 62 Respiratory Rate 19 20 19 Blood Pressure 136/70 116/53 L 118/62 Pulse Oximetry 99 94 94 Oxygen Delivery 08/14/23 09:37 Temperature Pulse Rate 60 Respiratory Rate Blood Pressure Pulse Oximetry Oxygen Delivery Intake/Output Intake/Output: Intake & Output 08/11/23 08/12/23 08/13/23 08/14/23 23:59 23:59 23:59 23:59 Intake Total 690 480 Output Total 300 400 Balance 390 80 Meds/Results Medications: Active Medications Generic Name Dose Route Start Last Admin Trade Name Freq PRN Reason Stop Dose Admin Acetaminophen 650 mg 08/13/23 11:54 Acetaminophen 325 Mg Tablet PO Q4H PRN Mild Pain (1-3) or Fever Albuterol 2 puff 08/13/23 15:17 Albuterol Sulfate (*Sp) Aerosol 1 Puff INHALATION Q6HRT PRN Shortness Of Breath Allopurinol 100 mg 08/14/23 09:00 08/14/23 09:36 Allopurinol 100 Mg Tablet PO 100 mg DAILY CESAR Administration Atorvastatin Calcium 10 mg 08/14/23 09:00 08/14/23 09:37 Atorvastatin 10 Mg Tablet PO 10 mg DAILY CESAR Administration Bumetanide 1 mg 08/13/23 17:00 08/14/23 09:36 Bumetanide 1 Mg Tablet PO 1 mg BID CESAR Administration Carvedilol 12.5 mg 08/13/23 21:00 08/14/23 09:37 Carvedilol 12.5 Mg Tablet BY MOUTH 12.5 mg Q1
[2023-08-14 12:07] LABS: Glucose Point of Care 183 mg/dl (65-105)
--- NOTE | 2023-08-14 13:32 | P.PNNP_ITS ---
Progress Note: A&P Assessment and Plan (1) LINDSEY (acute kidney injury): Code(s): N17.9 - Acute kidney failure, unspecified Status: Acute Assessment and Plan: * due to chronic prerenal azotemia worsened by need for chronic diuretic therapy as noted on July 2023 hospitalization * previous evaluation to date: * renal ultrasound with left hydronephrosis * urine electrolytes are prerenal * CPK normal * UA unremarkable * initiated on MANAGER UI/dialysis in July 2023 for optimization of fluid status/treatment of volume overload as well as clearance (given lack of significant improvement with aggressive medical therapy) * unclear if this will be permanent or temporary * follow outpatient labs and UOP for potential renal recovery * plan HD tomorrow once new HD catheter in place (2) Chronic kidney disease, stage 3b: Code(s): N18.32 - Chronic kidney disease, stage 3b Status: Chronic Assessment and Plan: * baseline creatinine had been running ~ 2.0 - 2.5mg/dl (as far back as April 2023) * due to biopsy proven hypertensive and diabetic nephrosclerosis * his underlying CHF and need for diuretic therapy are playing a role as well * on MANAGER UI/dialysis due to diuretic resistance and azotemia (3) Displacement of central venous catheter (CVC): Code(s): T82.528A - Displacement of other cardiac and vascular devices and implants, initial encounter Status: Acute Assessment and Plan: * as noted by history * HD catheter fell out overnight prior to admission * Surgery recommendations noted * holding Eliquis * new tunneled HD catheter to be placed on Friday (08/15/23) (4) Anemia: Code(s): D64.9 - Anemia, unspecified Status: Chronic Assessment and Plan: * due to LINDSEY on CKD * Epogen with HD * follow trend of H/H (5) Essential (primary) hypertension: Code(s): I10 - Essential (primary) hypertension Status: Chronic Assessment and Plan: * reasonable control * on midodrine PRN with dialysis due to intradialytic hypotension * follow trend of hemodynamics (6) Diabetes: Code(s): E11.9 - Type 2 diabetes mellitus without complications Status: Chronic Assessment and Plan: * follow accu-cheks * glycemic control per hospitalists Will continue to follow. Subjective Date/time seen: 08/14/23 13:32 Interval history: Follow-up for acute kidney injury on chronic kidney disease requiring renal replacement therapy/hemodialysis. No apparent distress voiced at the time of my visit; no issues/problems overnight or earlier this morning; feels reasonably well; noted plan for new HD catheter tomorrow. Exam Narrative: General: WD/WN male in NAD Heart: normal S1 and S2; IRRR, no rub Lungs: clear anteriorly; decreased at bases Abdomen: soft, nontender, nondistended, positive bowel sounds Extremities: no cyanosis or clubbing; 1+ edema Skin: warm and dry Objective Data Vital Signs Vital Signs: Vital Signs Temp Pulse Resp BP Pulse Ox O2 Del Method 08/14/23 12:00 98 F 62 18 112/55 L 97 08/14/23 09:37 60 08/14/23 08:00 97.6 F 62 19 118/62 94 08/14/23 06:00 97.4 F L 63 20 116/53 L 94 08/13/23 23:55 97.7 F 56 L 19 136/70 99 08/13/23 22:00 97.3 F L 56 L 19 111/76 95 08/13/23 21:18
--- NOTE | 2023-08-14 13:32 | PM.PNNEP ---
Progress Note: A&P Assessment and Plan (1) LINDSEY (acute kidney injury): Code(s): N17.9 - Acute kidney failure, unspecified Status: Acute Assessment and Plan: due to chronic prerenal azotemia worsened by need for chronic diuretic therapy as noted on July 2023 hospitalization previous evaluation to date: renal ultrasound with left hydronephrosis urine electrolytes are prerenal CPK normal UA unremarkable initiated on REGISTERED RESPIRATORY THERAPIST/dialysis in July 2023 for optimization of fluid status/treatment of volume overload as well as clearance (given lack of significant improvement with aggressive medical therapy) unclear if this will be permanent or temporary follow outpatient labs and UOP for potential renal recovery plan HD tomorrow once new HD catheter in place (2) Chronic kidney disease, stage 3b: Code(s): N18.32 - Chronic kidney disease, stage 3b Status: Chronic Assessment and Plan: baseline creatinine had been running ~ 2.0 - 2.5mg/dl (as far back as April 2023) due to biopsy proven hypertensive and diabetic nephrosclerosis his underlying CHF and need for diuretic therapy are playing a role as well on REGISTERED RESPIRATORY THERAPIST/dialysis due to diuretic resistance and azotemia (3) Displacement of central venous catheter (CVC): Code(s): T82.528A - Displacement of other cardiac and vascular devices and implants, initial encounter Status: Acute Assessment and Plan: as noted by history HD catheter fell out overnight prior to admission Surgery recommendations noted holding Eliquis new tunneled HD catheter to be placed on Friday (08/15/23) (4) Anemia: Code(s): D64.9 - Anemia, unspecified Status: Chronic Assessment and Plan: due to LINDSEY on CKD Epogen with HD follow trend of H/H (5) Essential (primary) hypertension: Code(s): I10 - Essential (primary) hypertension Status: Chronic Assessment and Plan: reasonable control on midodrine PRN with dialysis due to intradialytic hypotension follow trend of hemodynamics (6) Diabetes: Code(s): E11.9 - Type 2 diabetes mellitus without complications Status: Chronic Assessment and Plan: follow accu-cheks glycemic control per hospitalists Will continue to follow. Subjective Date/time seen: 08/14/23 13:32 Interval history: Follow-up for acute kidney injury on chronic kidney disease requiring renal replacement therapy/hemodialysis. No apparent distress voiced at the time of my visit; no issues/problems overnight or earlier this morning; feels reasonably well; noted plan for new HD catheter tomorrow. Exam Narrative: General: WD/WN male in NAD Heart: normal S1 and S2; IRRR, no rub Lungs: clear anteriorly; decreased at bases Abdomen: soft, nontender, nondistended, positive bowel sounds Extremities: no cyanosis or clubbing; 1+ edema Skin: warm and dry Objective Data Vital Signs Vital Signs: Vital Signs Temp Pulse Resp BP Pulse Ox O2 Del Method 08/14/23 12:00 98 F 62 18 112/55 L 97 08/14/23 09:37 60 08/14/23 08:00 97.6 F 62 19 118/62 94 08/14/23 06:00 97.4 F L 63 20 116/53 L 94 08/13/23 23:55 97.7 F 56 L 19 136/70 99 08/13/23 22:00 97.3 F L 56 L 19 111/76 95 08/13/23 21:18 64 Intake/Output Intake/Output: Intake & Output 08/11/23 08/12/23 08/13/23 08/14/23 23:59 23:59 23:59 23:59 Intake Total 690 930 Output Total 300 700 Balance 390 230 Meds/Results Medications: Active Medications Generic Name Dose Route Start Last Admin Trade Name Freq PRN Reason Stop Dose Admin Acetaminophen 650 mg 08/13/23 11:54 Acetaminophen 325 Mg Tablet PO Q4H PRN Mild Pain (1-3) or Fever Acyclovir 1 applic 08/14/23 15:00 08/14/23 16:39 Acyclovir 5% Ointment 15 Gm Tube TOPICAL 1 applic 5 TIMES DAILY CESAR Administration Albuterol 2 puff 08/13/23 15:1
[2023-08-14 14:00] VITALS: BP 112/55; PULSE 62; RESP 18; TEMP 36.6; O2SAT 97
[2023-08-14] MEDS: POTASSIUM CHLORIDE 20 MEQ PACKET (FOR LIQUID) PO (16:37)
[2023-08-14] MEDS: ACYCLOVIR 5% OINTMENT 15 GM TUBE 1 APPLIC TOPICAL ×2 (16:39→20:42)
[2023-08-14 17:22] LABS: Glucose Point of Care 160 mg/dl (65-105)
[2023-08-14 20:42] VITALS: PULSE 62
[2023-08-14 21:03] LABS: Glucose Point of Care 189 mg/dl (65-105)
[2023-08-14 21:09] VITALS: BP 121/63; PULSE 60; RESP 16; TEMP 36.8; O2SAT 96
[2023-08-15] VITALS (13 sets, daily range): BP systolic 97–145; BP diastolic 65–82; PULSE 51–100; RESP 8–17; TEMP 36.1–36.9; O2SAT 94–98
[2023-08-15 06:17] LABS: Hematocrit 32.6 % (42.0-52.0); Hemoglobin 9.3 g/dL (14.0-18.0); Mean Corpuscular HGB Conc 28.5 g/dl (32-36); Mean Corpuscular Hemoglobin 25.8 pg (26-34); Mean Corpuscular Volume 90.3 fl (80-100); Mean Platelet Volume 11.4 fl (7.4-10.4); Platelet Count Result 105 k/mm3 (150-375); Red Blood Count 3.61 M/mm3 (4.6-6.20); Red Cell Distribution Width 20.9 % (11.5-14.5); White Blood Count 4.5 K/mm3 (4.5-10.0)
[2023-08-15 06:32] LABS: Anion Gap 10 mmol/L (8-16); Blood Urea Nitrogen 60 mg/dL (9-20); Calcium 7.7 mg/dL (8.4-10.2); Carbon Dioxide 29 mmol/L (22-30); Chloride 99 mmol/L (98-107); Estimated CRCL calculation 14 ml/min; Estimated Glomerular Filt Rate 16; Glucose 143 mg/dL (65-110); Potassium 3.4 mmol/L (3.4-5.0); Sodium 138 mmol/L (137-145)
[2023-08-15 06:33] LABS: INR 1.3; Prothrombin Time 16.8 Seconds (11.1-14.7)
--- NOTE | 2023-08-15 07:52 | PM.IMPN ---
Progress Note: A&P Assessment and Plan (1) End-stage renal disease (ESRD): Code(s): N18.6 - End stage renal disease Status: Acute (2) Encounter regarding vascular access for dialysis for end-stage renal disease: Code(s): N18.6 - End stage renal disease; Z99.2 - Dependence on renal dialysis Status: Acute (3) Essential (primary) hypertension: Code(s): I10 - Essential (primary) hypertension Status: Chronic (4) Diabetes mellitus with proteinuria: Code(s): E11.29 - Type 2 diabetes mellitus with other diabetic kidney complication; R80.9 - Proteinuria, unspecified Status: Chronic (5) Congestive heart failure: Qualifiers: Heart failure chronicity: acute on chronic Heart failure type: diastolic Qualified Code(s): I50.33 - Acute on chronic diastolic (congestive) heart failure Code(s): I50.9 - Heart failure, unspecified Status: Chronic (6) Atrial fibrillation: Code(s): I48.91 - Unspecified atrial fibrillation Status: Acute Plan Term male with history of AFib on Eliquis ESRD on hemodialysis presented to the ER with dislodgement of the done and catheter on 08/13/2023. Vitals were stable. Labs with mild thrombocytopenia as 115 K hemoglobin of 10.1 creatinine of 4 INR of 1.7 chest x-ray with cardiomegaly and mild congestive heart failure. General surgery was consulted. Hemostasis has been maintained conservatively with application of the pressure to the area. Plan to have insertion of the tunneled catheter today followed by dialysis. Mild thrombocytopenia which is chronic Atrial fibrillation B VS Chronic anemia Chronic anticoagulation with Eliquis End-stage renal disease on hemodialysis recently started dialysis on 07/05/2023 arrangements for outpatient dialysis Friday Congestive heart failure diastolic with EF 65-70% moderate pulmonary hypertension moderate pulmonic valve regurgitation Type 2 diabetes mellitus on Victoza at home Hypertension Hyperlipidemia Chronic back pain status post insertion of spinal cord stimulator DVT prophylaxis on Eliquis Subjective Date/time seen: 08/15/23 07:52 Interval history: Feels well no chest pain or shortness of breath Review of Systems Review of Systems: All systems reviewed & are unremarkable except as noted in HPI and below Exam Narrative: GENERAL: Well-appearing, well-nourished, and in no acute distress. HEAD: Normocephalic, atraumatic. EYES: PERRLA and EOMI. ENT: Nares clear, no rhinorrhea or epistaxis. Mucous membranes moist. NECK: Supple. CHEST: Clear to auscultation. No respiratory distress. HEART: Regular rate and rhythm. No murmur heard. Normal peripheral pulses. ABDOMEN: Soft, nontender, nondistended, normal active bowel sounds. EXTREMITIES: Normal range of motion. No edema. SKIN: Warm, dry, no rash. NEURO: No focal deficits. Alert and oriented x3. PSYCH: Normal mood and affect. Objective Data Vital Signs Vital Signs: Vital Signs - 24 hr 08/14/23 08:00 08/14/23 09:37 08/14/23 08:30 Temperature 97.6 F Pulse Rate 62 60 Respiratory Rate 19 Blood Pressure 118/62 Pulse Oximetry 94 Oxygen Delivery Room Air 08/14/23 14:00 08/14/23 20:42 08/14/23 21:09 Temperature 98 F 98.3 F Pulse Rate 62 62 60 Respiratory Rate 18 16 Blood Pressure 112/55 L 121/63 Pulse Oximetry 97 96 Oxygen Delivery 08/15/23 05:40 Temperature 97.7 F Pulse Rate 60 Respiratory Rate 16 Blood Pressure Pulse Oximetry 94 Oxygen Delivery Intake/Output Intake/Output: Intake & Output 08/12/23 08/13/23 08/14/23 08/15/23 23:59 23:59 23:59 23:59 Intake Total 690 1280 200 Output Total 300 700 600 Balance 390 580 -400 Meds/Results Medications: Active Medications Generic Name Dose Route Start Last Admin Trade Name Freq PRN Reason Stop Dose Admin Acetaminophen 650 mg 08/13/23 11:54 Acetaminophen 325 Mg Tablet PO Q4H PRN Mil
[2023-08-15 08:37] LABS: Glucose Point of Care 144 mg/dl (65-105)
[2023-08-15] MEDS: ACYCLOVIR 5% OINTMENT 15 GM TUBE 1 APPLIC TOPICAL ×4 (08:38→20:47)
--- NOTE | 2023-08-15 11:04 | WPDHPUPDATE1 ---
History and Physical Update Update Date/Time: 08/15/23 11:04 History and Physical has been reviewed, including an updated exam of the patient. There are NO changes in the patient's condition. Risks, benefits, and alternatives have been discussed and questions answered. Patient agrees to proceed with procedure.
--- NOTE | 2023-08-15 11:13 | P.PNNP_ITS ---
Progress Note: A&P Assessment and Plan (1) LINDSEY (acute kidney injury): Code(s): N17.9 - Acute kidney failure, unspecified Status: Acute Assessment and Plan: * due to chronic prerenal azotemia worsened by need for chronic diuretic therapy as noted on July 2023 hospitalization * previous evaluation to date: * renal ultrasound with left hydronephrosis * urine electrolytes are prerenal * CPK normal * UA unremarkable * initiated on [facility]/dialysis in July 2023 for optimization of fluid status/treatment of volume overload as well as clearance (given lack of significant improvement with aggressive medical therapy) * unclear if this will be permanent or temporary * follow outpatient labs and UOP for potential renal recovery * No sign of renal recovery * catheter to be placed today. * Will do dialysis later today after catheter is in. (2) Chronic kidney disease, stage 3b: Code(s): N18.32 - Chronic kidney disease, stage 3b Status: Chronic Assessment and Plan: * baseline creatinine had been running ~ 2.0 - 2.5mg/dl (as far back as April 2023) * due to biopsy proven hypertensive and diabetic nephrosclerosis * his underlying CHF and need for diuretic therapy are playing a role as well * on [facility]/dialysis due to diuretic resistance and azotemia (3) Displacement of central venous catheter (CVC): Code(s): T82.528A - Displacement of other cardiac and vascular devices and implants, initial encounter Status: Acute Assessment and Plan: * new tunneled HD catheter to be placed later today (4) Anemia: Code(s): D64.9 - Anemia, unspecified Status: Chronic Assessment and Plan: * due to LINDSEY on CKD * Epogen with HD * Hemoglobin 9.3 today. (5) Essential (primary) hypertension: Code(s): I10 - Essential (primary) hypertension Status: Chronic Assessment and Plan: * Blood pressure under good control. (6) Diabetes: Code(s): E11.9 - Type 2 diabetes mellitus without complications Status: Chronic Assessment and Plan: * follow accu-cheks * glycemic control per hospitalists Will continue to follow. Subjective Date/time seen: 08/15/23 11:13 Interval history: Khalif is feeling okay right now. He is getting a tunneled dialysis catheter in soon then will get dialysis later today Exam Narrative: General: WD/WN male in NAD Heart: normal S1 and S2; IRRR, no rub or gallop Lungs: clear anteriorly; decreased at bases Abdomen: soft, nontender, nondistended, positive bowel sounds Extremities: no cyanosis or clubbing; 1+ edema Skin: Rash Objective Data Vital Signs Vital Signs: Vital Signs - 24 hr 08/14/23 14:00 08/14/23 20:42 08/14/23 21:09 Temperature 98 F 98.3 F Pulse Rate 62 62 60 Respiratory Rate 18 16 Blood Pressure 112/55 L 121/63 Pulse Oximetry 97 96 Oxygen Delivery 08/15/23 05:40 08/15/23 08:38 08/15/23 08:44 Temperature 97.7 F Pulse Rate 60 52 L Respiratory Rate 16 Blood Pressure Pulse Oximetry 94 Oxygen Delivery Room Air Intake/Output Intake/Output: Intake & Output 08/12/23 08/13/23 08/14/23 08/15/23 23:59 23:59 23:59 23:59
--- NOTE | 2023-08-15 11:13 | PM.PNNEP ---
Progress Note: A&P Assessment and Plan (1) LINDSEY (acute kidney injury): Code(s): N17.9 - Acute kidney failure, unspecified Status: Acute Assessment and Plan: due to chronic prerenal azotemia worsened by need for chronic diuretic therapy as noted on July 2023 hospitalization previous evaluation to date: renal ultrasound with left hydronephrosis urine electrolytes are prerenal CPK normal UA unremarkable initiated on [employer]/dialysis in July 2023 for optimization of fluid status/treatment of volume overload as well as clearance (given lack of significant improvement with aggressive medical therapy) unclear if this will be permanent or temporary follow outpatient labs and UOP for potential renal recovery No sign of renal recovery catheter to be placed today. Will do dialysis later today after catheter is in. (2) Chronic kidney disease, stage 3b: Code(s): N18.32 - Chronic kidney disease, stage 3b Status: Chronic Assessment and Plan: baseline creatinine had been running ~ 2.0 - 2.5mg/dl (as far back as April 2023) due to biopsy proven hypertensive and diabetic nephrosclerosis his underlying CHF and need for diuretic therapy are playing a role as well on [employer]/dialysis due to diuretic resistance and azotemia (3) Displacement of central venous catheter (CVC): Code(s): T82.528A - Displacement of other cardiac and vascular devices and implants, initial encounter Status: Acute Assessment and Plan: new tunneled HD catheter to be placed later today (4) Anemia: Code(s): D64.9 - Anemia, unspecified Status: Chronic Assessment and Plan: due to LINDSEY on CKD Epogen with HD Hemoglobin 9.3 today. (5) Essential (primary) hypertension: Code(s): I10 - Essential (primary) hypertension Status: Chronic Assessment and Plan: Blood pressure under good control. (6) Diabetes: Code(s): E11.9 - Type 2 diabetes mellitus without complications Status: Chronic Assessment and Plan: follow accu-cheks glycemic control per hospitalists Will continue to follow. Subjective Date/time seen: 08/15/23 11:13 Interval history: Khalif is feeling okay right now. He is getting a tunneled dialysis catheter in soon then will get dialysis later today Exam Narrative: General: WD/WN male in NAD Heart: normal S1 and S2; IRRR, no rub or gallop Lungs: clear anteriorly; decreased at bases Abdomen: soft, nontender, nondistended, positive bowel sounds Extremities: no cyanosis or clubbing; 1+ edema Skin: Rash Objective Data Vital Signs Vital Signs: Vital Signs - 24 hr 08/14/23 14:00 08/14/23 20:42 08/14/23 21:09 Temperature 98 F 98.3 F Pulse Rate 62 62 60 Respiratory Rate 18 16 Blood Pressure 112/55 L 121/63 Pulse Oximetry 97 96 Oxygen Delivery 08/15/23 05:40 08/15/23 08:38 08/15/23 08:44 Temperature 97.7 F Pulse Rate 60 52 L Respiratory Rate 16 Blood Pressure Pulse Oximetry 94 Oxygen Delivery Room Air Intake/Output Intake/Output: Intake & Output 08/12/23 08/13/23 08/14/23 08/15/23 23:59 23:59 23:59 23:59 Intake Total 690 1280 200 Output Total 300 700 775 Balance 390 580 -575 Meds/Results Medications: Active Medications Generic Name Dose Route Start Last Admin Trade Name Sd PRN Reason Stop Dose Admin Acetaminophen 650 mg 08/13/23 11:54 Acetaminophen 325 Mg Tablet PO Q4H PRN Mild Pain (1-3) or Fever Acyclovir 1 applic 08/14/23 15:00 08/15/23 08:38 Acyclovir 5% Ointment 15 Gm Tube TOPICAL 1 applic 5 TIMES DAILY CESAR Administration Albuterol 2 puff 08/13/23 15:17 Albuterol Sulfate (*Sp) Aerosol 1 Puff INHALATION Q6HRT PRN Shortness Of Breath Allopurinol 100 mg 08/14/23 09:00 08/14/23 09:36 Allopurinol 100 Mg Tablet PO 100 mg DAILY CESAR Administration Atorvastatin Calciu
[2023-08-15 12:15] LABS: Glucose Point of Care 132 mg/dl (65-105)
[2023-08-15 14:06] LABS: Glucose Point of Care 123 mg/dl (65-105)
--- NOTE | 2023-08-15 14:50 | WPDANESEPPF ---
Anes - Initial Pre Proc Eval Procedure: Operation Date: 08/15/23 15:30 Proposed Procedures p Insertion Tunneled Dialysis Catheter - Mani Julian MD Date/Time: 08/15/23 14:50 Surgeon: Darlene Slater MD Pre Op Diagnosis: esrd,vascular acess Patient Data Age: 83 Gender: M Height: 1.78 m Weight: 101.6 kg Last Vital Signs Temp 36.9 C 08/15/23 13:57 Pulse 51 L 08/15/23 13:57 Resp 14 08/15/23 13:57 BP 145/67 H 08/15/23 13:57 Pulse Ox 97 08/15/23 13:57 O2 Del Method Room Air 08/15/23 13:57 Allergies Allergy/AdvReac Type Severity Reaction Status Date / Time No Known Allergies Allergy Verified 08/15/23 14:13 Home Medications Medication Instructions Recorded Confirmed Type blood pressure monitor #1 ea 01/10/20 08/13/23 Rx blood sugar diagnostic (Blood #100 ea 01/10/20 08/13/23 Rx Glucose Test strips) blood-glucose meter #1 ea 01/10/20 08/13/23 Rx lancets #200 ea 01/10/20 08/13/23 Rx pen needle, diabetic 31 gauge x #100 ea 08/23/22 08/13/23 Rx 5/16 (BD Ultra-Fine Short Pen Needle) cholecalciferol (vitamin D3) 50 50 mcg PO DAILY 12/26/22 08/13/23 History mcg (2,000 unit) capsule allopurinol 100 mg tablet 100 mg PO DAILY #90 tabs 01/30/23 08/13/23 Rx atorvastatin 10 mg tablet 10 mg PO DAILY #90 tabs 03/14/23 08/13/23 Rx albuterol sulfate 90 mcg/actuation 2 puff inhalation Q6HRT PRN 04/23/23 08/13/23 Rx aerosol inhaler (Proventil HFA) Shortness Of Breath #6.7 grams calcitriol 0.25 mcg capsule 0.25 mcg PO 4XW #16 caps 05/01/23 08/13/23 Rx bumetanide 1 mg tablet 1 mg PO BID #60 tabs 07/29/23 08/13/23 Rx midodrine 2.5 mg tablet 2.5 mg PO PRN PRN hypotension with 07/29/23 08/13/23 Rx dialysis #30 tabs apixaban 2.5 mg tablet (Eliquis) 2.5 mg PO Q12HR #180 tabs 07/30/23 08/13/23 Rx carvedilol 12.5 mg tablet See Rx Instructions .Route 08/08/23 08/13/23 Rx .COMPLEX #180 tabs liraglutide 0.6 mg/0.1 mL (18 mg/3 1.2 mg subcut DAILY 08/13/23 08/13/23 History mL) subcutaneous pen injector (Victoza 3-Vidal) Laboratory Tests 08/14/23 08/14/23 08/15/23 16:57 21:00 05:37 WBC 4.5 K/mm3 (4.5-10.0) RBC 3.61 L M/mm3 (4.6-6.20) Hgb 9.3 L g/dL (14.0-18.0) Hct 32.6 L % (42.0-52.0) MCV 90.3 fl (80-100) MCH 25.8 L pg (26-34) MCHC 28.5 L g/dl (32-36) RDW 20.9 H % (11.5-14.5) Plt Count 105 L k/mm3 (150-375) MPV 11.4 H fl (7.4-10.4) PT 16.8 H Seconds (11.1-14.7) INR 1.3 Sodium 138 mmol/L (137-145) Potassium 3.4 mmol/L (3.4-5.0) Chloride 99 mmol/L (98-107) Carbon Dioxide 29 mmol/L (22-30) Anion Gap 10 mmol/L (8-16) BUN 60 H mg/dL (9-20) Creatinine 4.40 H mg/dL (0.7-1.3) Estim Creat Clear Calc 14 ml/min Estimated GFR 16 L (59 - ) Glucose 143 H mg/dL (65-110) POC Capillary Glucose 160 H mg/dl 189 H mg/dl (65-105) (65-105) Calcium 7.7 L mg/dL (8.4-10.2) Blood Type O Positive Antibody Screen Positive Antibody Identification Pending Antigen Identification Pending MAYRA, IgG Interpret Positive MAYRA, Poly Interpret Positive MAYRA, Complement Interp Pending 08/15/23 08/15/23 08/15/23 08:17 11:58 14:02 WBC RBC Hgb Hct MCV MCH MCHC RDW Plt Count MPV PT INR Sodium Potassium Chloride Carbon Dioxide Anion Gap BUN Creatinine Estim Creat Clear Calc Estimated GFR Glucose POC Capillary Glucose 144 H mg/dl 132 H mg/dl 123 H mg/dl (65-105) (65-10
[2023-08-15] MEDS: ceFAZolin 2 GM/D5W 50 ML 2 GM/50 ML BAG IVPB (15:04)
[2023-08-15] MEDS: LIDO 1%/EPINEPHRINE 1:100,000 50 ML VIAL 30 ML INFILTRATE (15:43)
[2023-08-15] MEDS: HEPARIN SODIUM 1,000 UNITS/ML VIAL 1000 UNITS IV PUSH (15:44)
[2023-08-15] MEDS: HEPARIN SODIUM 5,000 UNITS/ML VIAL 5000 UNITS SUB-Q (15:49)
[2023-08-15] MEDS: SODIUM CHLORIDE 0.9% IV 500 ML 30 ML IV CONT (15:54)
--- NOTE | 2023-08-15 16:00 | W.PM.PROC2 ---
Procedure Note - Detailed Date of Procedure 08/15/23 Pre-op Diagnosis esrd,vascular acess Post-op Diagnosis Same Procedure Performed Placement of right internal jugular vein tunneled hemodialysis catheter with intraoperative fluoroscopy Surgeon Mani Julian MD Teacher Emotionally Impaired Diego Sharma [employer]ER Anesthesia MAC Indications Patient is an 83-year-old gentleman who has end-stage renal disease who had a previously placed right internal jugular vein tunneled hemodialysis catheter placed about a month ago by Dr. Green. Two days ago the catheter came out. The patient still needs to have a tunnel catheter placed for dialysis as a bridge until it is known that he needs to have a permanent graft placed in his arm. Findings None significant Description of Procedure After informed consent was obtained patient brought to the operating room was placed supine position and then IV sedation was administered by anesthesia. Bilateral anterior neck and chest was then prepped and draped usual sterile fashion. A time-out was then performed correctly identifying the patient as well as procedure to be performed verifying he is given perioperative IV antibiotics. The prior exit site of the old catheter was mostly closed and there was no erythema or drainage coming from the small wound. Because there is no evidence infection the right neck or right anterior chest I decided to go ahead try to place another right internal jugular vein tunneled hemodialysis catheter. The patient placed in the head-down Trendelenburg position and then with a long 18gauge spinal needle I was able to cannulate the right internal jugular vein on the 1st pass without any difficulty. There was prompt return of dark venous appearing blood. A guide was passed through the needle into the right internal jugular vein and into the right atrium of the heart. Intraoperative fluoroscopy was then used to confirm the for placement of the tip of the guidewire. I then proceeded to make a small stab incision lateral and a bit superior to the exit site of the prior catheter. I then enlarged the incision where the guidewire was placed and dilated the area with a Mallory clamp. A DuraFlow tunneled hemodialysis catheter measuring 19cm from the cuff was then tunneled from the right upper anterior chest to the right anterior lateral neck. The cuff was situated above the clavicle between the clavicle and the insertion site of the catheter. The exit site the catheter was just below the clavicle. Dilators advanced over the guidewire to enlarge the be not a me. Lastly a dilator and breakaway sheath was advanced over the guidewire and then the guidewire and dilator were removed leaving the sheath in place. The catheter was advanced through the sheath subsequently down into the distal superior vena cava. The sheath was torn away leaving the catheter in place. Intraoperative fluoroscopy was then used to visualize the tip of the catheter and it was good position at the atriocaval junction. I then aspirated both ports of the catheter in a andrae back blood easily and were flushed easily with heparinized saline solution. I then secured the catheter at the exit site at the skin with a 3-0 nylon suture. I then flushed both ports the catheter once more with a total of 5000units of IV heparin. The small neck incision was then closed utilizing a 2-0 Monocryl suture placed in subcuticular fashion. A sterile dressing was then placed. The patient tolerated the procedure well no complications. All sponges, needles, and instrument counts were correct at the end procedure. EBL was _20__cc. The patient was awakened and taken to recovery in stable and satisfactory condition. Portable chest x-ray at the end the procedure spending time of dictation. Implants DuraFlow tunneled hemodialysis catheter measuring 19cm from the tip to the cuff. Estimated Blood Loss 20 Urine Output 175 Drains No Packing No Pathology None sent Complications No imm
[2023-08-15 17:14] LABS: Glucose Point of Care 123 mg/dl (65-105)
[2023-08-15] MEDS: ATORVASTATIN 10 MG TABLET PO (17:34)
[2023-08-15] MEDS: BUMETANIDE 1 MG TABLET PO (17:34)
[2023-08-15] MEDS: allopurinoL 100 MG TABLET PO (17:34)
[2023-08-15] MEDS: carvediloL 12.5 MG TABLET BY MOUTH (20:46)
[2023-08-15 20:52] LABS: Glucose Point of Care 180 mg/dl (65-105)
[2023-08-16] VITALS (20 sets, daily range): BP systolic 107–148; BP diastolic 55–90; PULSE 43–62; RESP 16–18; TEMP 36.3–37.2; O2SAT 97–99
[2023-08-16 05:39] LABS: Basophils Percent Auto 0.8 % (0.2-1.2); Eosinophils Percent Auto 0.8 % (0-4.4); Hematocrit 33.1 % (42.0-52.0); Hemoglobin 9.9 g/dL (14.0-18.0); Immature Granulocyte Absolute 0.01 K/mm3 (0.00-0.031); Immature Granulocyte Percent A 0.2 % (0-0.5); Lymphocytes Absolute Auto 1.17 K/mm3 (0.9-3.2); Mean Corpuscular HGB Conc 29.9 g/dl (32-36); Mean Corpuscular Hemoglobin 26.1 pg (26-34); Mean Corpuscular Volume 87.3 fl (80-100); Mean Platelet Volume 10.7 fl (7.4-10.4); Monocytes Absolute Auto 0.7 K/mm3 (0.1-0.6); Neutrophils Absolute Auto 3.1 K/mm3 (1.3-6.7); Neutrophils Percent Auto 61.2 % (45.5-73.1); Platelet Count Result 113 k/mm3 (150-375); Red Blood Count 3.79 M/mm3 (4.6-6.20); Red Cell Distribution Width 20.8 % (11.5-14.5); White Blood Count 5.1 K/mm3 (4.5-10.0)
[2023-08-16 05:59] LABS: Alanine Aminotransferase 9 U/L (6-50); Alkaline Phosphatase 93 U/L (38-126); Anion Gap 9 mmol/L (8-16); Aspartate Amino Transferase 20 U/L (17-59); Bilirubin,Total 0.9 mg/dL (0.2-1.3); Blood Urea Nitrogen 63 mg/dL (9-20); Calcium 7.7 mg/dL (8.4-10.2); Carbon Dioxide 30 mmol/L (22-30); Chloride 100 mmol/L (98-107); Estimated CRCL calculation 14 ml/min; Estimated Glomerular Filt Rate 16; Glucose 148 mg/dL (65-110); Magnesium 1.6 mg/dL (1.6-2.3); Potassium 3.4 mmol/L (3.4-5.0); Sodium 139 mmol/L (137-145)
[2023-08-16 06:14] LABS: Burr Cells 1+ (NORMAL); Ovalocytes 1+ (NORMAL); Schistocytes None Seen (NORMAL)
[2023-08-16 06:16] LABS: Anisocytosis 1+ (NORMAL)
[2023-08-16 06:17] LABS: Hypochromasia 1+ (NORMAL)
--- NOTE | 2023-08-16 07:25 | WPDANESPN ---
Anes - Prog Note Post-Op Date/Time: 08/16/23 07:25 Cardiovascular status: normal Respiratory status: normal Airway patency: baseline Mental status: baseline Post-Op hydration status: normal Vital Signs: Last Vital Signs Temp 36.4 C L 08/16/23 04:04 Pulse 59 L 08/16/23 04:04 Resp 16 08/16/23 04:04 BP 128/74 08/16/23 04:04 Pulse Ox 98 08/16/23 04:04 O2 Del Method Room Air 08/15/23 20:00 Pain Score (VAS): 0 I/O: Intake & Output 08/15/23 08/15/23 08/16/23 15:59 23:59 07:59 Intake Total 50 275 250 Output Total 175 175 400 Balance -125 100 -150 Laboratory Tests 08/16/23 04:48 08/16/23 04:48 08/15/23 08/15/23 08/15/23 05:37 08:17 11:58 WBC RBC Hgb Hct MCV MCH MCHC RDW Plt Count MPV Immature Gran % (Auto) Neut % (Auto) Lymph % (Auto) Owen % (Auto) Eos % (Auto) Baso % (Auto) Lymph # (Auto) Owen # (Auto) Eos # (Auto) Baso # (Auto) Abs Immat Gran (auto) Absolute Neuts (auto) Absolute Nucleated RBC Nucleated RBC % Platelet Estimate Hypochromasia Anisocytosis Ovalocytes [place] Cells Schistocytes Sodium Potassium Chloride Carbon Dioxide Anion Gap BUN Creatinine Estim Creat Clear Calc Estimated GFR Glucose POC Capillary Glucose 144 H 132 H Calcium Magnesium Total Bilirubin AST ALT Alkaline Phosphatase Total Protein Albumin Blood Type O Positive Antibody Screen Positive Antibody Identification Anti-E Antigen Identification Cancelled MAYRA, IgG Interpret Positive MAYRA, Poly Interpret Positive MAYRA, Complement Interp Not Performed Enhanced Crossmatch See Detail 08/15/23 08/15/23 08/15/23 14:02 16:52 20:28 WBC RBC Hgb Hct MCV MCH MCHC RDW Plt Count MPV Immature Gran % (Auto) Neut % (Auto) Lymph % (Auto) Owen % (Auto) Eos % (Auto) Baso % (Auto) Lymph # (Auto) Owen # (Auto) Eos # (Auto) Baso # (Auto) Abs Immat Gran (auto) Absolute Neuts (auto) Absolute Nucleated RBC Nucleated RBC % Platelet Estimate Hypochromasia Anisocytosis Ovalocytes [place] Cells Schistocytes Sodium Potassium Chloride Carbon Dioxide Anion Gap BUN Creatinine Estim Creat Clear Calc Estimated GFR Glucose POC Capillary Glucose 123 H 123 H 180 H Calcium Magnesium Total Bilirubin AST ALT Alkaline Phosphatase Total Protein Albumin Blood Type Antibody Screen Antibody Identification Antigen Identification MAYRA, IgG Interpret MAYRA, Poly Interpret MAYRA, Complement Interp Enhanced Crossmatch 08/16/23 04:48 WBC 5.1 RBC 3.79 L Hgb 9.9 L Hct 33.1 L MCV 87.3 MCH 26.1 MCHC 29.9 L RDW 20.8 H Plt Count 113 L MPV 10.7 H Immature Gran % (Auto) 0.2 Neut % (Auto) 61.2 Lymph % (Auto) 23.0 Owen % (Auto) 14.0 H Eos % (Auto) 0.8 Baso % (Auto) 0.8 Lymph # (Auto) 1.17 Owen # (Auto) 0.7 H Eos # (Auto) 0.0 Baso # (Auto) 0.0 Abs Immat Gran (auto) 0.01 Absolute Neuts (auto) 3.1 Absolute Nucleated RBC 0.0 Nucleated RBC % 0.0 Platelet Estimate Slightly decreased Hypochromasia 1+ Anisocytosis 1+ Ovalocytes 1+ [place] Cells 1+ Schistocytes None seen Sodium 139 Potassium 3.4 Chloride 100 Carbon Dioxide 30 Anion Gap 9 BUN 63 H Creatinine 4.40 H Estim Creat Clear Calc 14 Estimated GFR 16 L Glucose 148 H POC Capillary Glucose Calcium 7.7 L Magnesium 1.6 Total Bilirubin 0.9 AST 20 ALT 9 Alkaline Phosphatase 93 Total Protein 7.0 Albumin 3.0 L Blood Type Antibody Screen Antibody Identification Antigen Identification MAYRA, IgG Interpret MAYRA, Poly Interpret MAYRA, Complement Interp Enhanced Crossmatch Post-procedural complaints: none Patient Feedback: Patient satisfied with a
[2023-08-16 08:09] LABS: Glucose Point of Care 140 mg/dl (65-105)
[2023-08-16] MEDS: ACYCLOVIR 5% OINTMENT 15 GM TUBE 1 APPLIC TOPICAL ×3 (08:50→16:46)
--- NOTE | 2023-08-16 09:47 | PM.PNNEP ---
Progress Note: A&P Assessment and Plan (1) LINDSEY (acute kidney injury): Code(s): N17.9 - Acute kidney failure, unspecified Status: Acute Assessment and Plan: due to chronic prerenal azotemia worsened by need for chronic diuretic therapy as noted on July 2023 hospitalization previous evaluation to date: renal ultrasound with left hydronephrosis urine electrolytes are prerenal CPK normal UA unremarkable his catheter is back in. Will get dialysis today then be discharged. Okay from the renal standpoint for discharge (2) Chronic kidney disease, stage 3b: Code(s): N18.32 - Chronic kidney disease, stage 3b Status: Chronic Assessment and Plan: monitoring for recovery of kidney function (3) Displacement of central venous catheter (CVC): Code(s): T82.528A - Displacement of other cardiac and vascular devices and implants, initial encounter Status: Acute Assessment and Plan: new tunneled HD catheter done yesterday afternoon (4) Anemia: Code(s): D64.9 - Anemia, unspecified Status: Chronic Assessment and Plan: due to LINDSEY on CKD Epogen with HD today Hemoglobin 9.9 today. (5) Essential (primary) hypertension: Code(s): I10 - Essential (primary) hypertension Status: Chronic Assessment and Plan: Blood pressure under good control. (6) Diabetes: Code(s): E11.9 - Type 2 diabetes mellitus without complications Status: Chronic Assessment and Plan: follow accu-cheks glycemic control per hospitalists Subjective Date/time seen: 08/16/23 09:47 Interval history: patient is feeling okay. He is out of bed looking out the window for his so she can come and take him home. He does have have dialysis later today Exam Narrative: General: WD/WN male in NAD Heart: normal S1 and S2; IRRR, no rub or gallop Lungs: clear bilaterally Abdomen: soft, nontender, nondistended, positive bowel sounds Extremities: no cyanosis or clubbing; 1+ edema Skin: No rash to no subcu nodules Objective Data Vital Signs Vital Signs: Vital Signs - 24 hr 08/15/23 13:57 08/15/23 15:54 08/15/23 16:10 Temperature 98.4 F 97 F L Pulse Rate 51 L 61 56 L Respiratory Rate 14 8 L 17 Blood Pressure 145/67 H 97/65 L 119/81 Pulse Oximetry 97 97 98 Oxygen Delivery Room Air Room Air Room Air 08/15/23 16:29 08/15/23 16:45 08/15/23 17:00 Temperature 97.5 F L 97.6 F Pulse Rate 53 L 55 L 55 L Respiratory Rate 14 14 14 Blood Pressure 122/71 137/71 142/69 H Pulse Oximetry 97 98 95 Oxygen Delivery Room Air 08/15/23 17:30 08/15/23 18:30 08/15/23 20:22 Temperature 97.6 F 97.6 F 98.1 F Pulse Rate 60 100 60 Respiratory Rate 16 16 16 Blood Pressure 132/79 128/82 134/70 Pulse Oximetry 96 98 96 Oxygen Delivery 08/15/23 20:46 08/15/23 20:00 08/16/23 04:04 Temperature 97.5 F L Pulse Rate 60 60 59 L Respiratory Rate 16 16 Blood Pressure 128/74 Pulse Oximetry 96 98 Oxygen Delivery Room Air 08/16/23 08:46 08/16/23 08:47 Temperature 97.7 F Pulse Rate 62 Respiratory Rate 17 Blood Pressure 148/88 H Pulse Oximetry 99 99 Oxygen Delivery Room Air Intake/Output Intake/Output: Intake & Output 08/13/23 08/14/23 08/15/23 08/16/23 23:59 23:59 23:59 23:59 Intake Total 690 1280 525 610 Output Total 300 700 950 400 Balance 390 580 -425 210 Meds/Results Medications: Active Medications Generic Name Dose Route Start Last Admin Trade Name Alexanderq PRN Reason Stop Dose Admin Acetaminophen 650 mg 08/13/23 11:54 Acetaminophen 325 Mg Tablet PO Q4H PRN Mild Pain (1-3) or Fever Hydrocodone Bitart/Acetaminophen 1 tab 08/15/23 16:36 Hydrocodone/Acetaminophen (*Crx) 5-325 Mg Tablet PO Q6H PRN Pain Rated 4-6 Acyclovir 1 applic 08/14/23 15:00 08/16/23 08:50 Acyclovir 5% Ointment 15 Gm Tube TOPICAL 1 applic 5 LIZZIE
--- NOTE | 2023-08-16 11:13 | PM.DS ---
DS: Admitting Diagnosis Discharge Date 08/16/2023 Admitting Diagnosis 08/16/2023 DS: Discharge Diagnosis Discharge Diagnosis (1) End-stage renal disease (ESRD): Code(s): N18.6 - End stage renal disease Status: Acute (2) Encounter regarding vascular access for dialysis for end-stage renal disease: Code(s): N18.6 - End stage renal disease; Z99.2 - Dependence on renal dialysis Status: Acute (3) Essential (primary) hypertension: Code(s): I10 - Essential (primary) hypertension Status: Chronic (4) Diabetes mellitus with proteinuria: Code(s): E11.29 - Type 2 diabetes mellitus with other diabetic kidney complication; R80.9 - Proteinuria, unspecified Status: Chronic (5) Congestive heart failure: Qualifiers: Heart failure chronicity: acute on chronic Heart failure type: diastolic Qualified Code(s): I50.33 - Acute on chronic diastolic (congestive) heart failure Code(s): I50.9 - Heart failure, unspecified Status: Chronic (6) Atrial fibrillation: Code(s): I48.91 - Unspecified atrial fibrillation Status: Acute DS: Summary Hospital Course Hospital Course: 83-year-old male with history of AFib on Eliquis ESRD on hemodialysis presented to the ER with dislodgement of the dialysis catheter on 08/13/2023.? Vitals were stable.? Labs with mild thrombocytopenia as 115 K hemoglobin of 10.1 creatinine of 4 INR of 1.7 chest x-ray with cardiomegaly and mild congestive heart failure.? General surgery was consulted.? Hemostasis has been maintained conservatively with application of the pressure to the area prior to arrival to the ED.?patient underwent insertion of the tunneled catheter on 08/15/2023 which was followed by dialysis on 08/16/2023 Mild thrombocytopenia which is chronic Atrial fibrillation Chronic anemia Chronic anticoagulation with Eliquis End-stage renal disease on hemodialysis recently started dialysis on 07/05/2023 arrangements for outpatient dialysis Friday Congestive heart failure diastolic with EF 65-70% moderate pulmonary hypertension moderate pulmonic valve regurgitation Type 2 diabetes mellitus on Victoza at home Hypertension Hyperlipidemia Chronic back pain status post insertion of spinal cord stimulator DVT prophylaxis on Eliquis Time Spent with Patient Time attestation: Total time spent providing and/or coordinating discharge services: 35 minutes Exam Narrative: GENERAL: Well-appearing, well-nourished, and in no acute distress. HEAD: Normocephalic, atraumatic. EYES: PERRLA and EOMI. ENT: Nares clear, no rhinorrhea or epistaxis. Mucous membranes moist. NECK: Supple. CHEST: Clear to auscultation. No respiratory distress. HEART: Regular rate and rhythm. No murmur heard. Normal peripheral pulses. ABDOMEN: Soft, nontender, nondistended, normal active bowel sounds. EXTREMITIES: Normal range of motion. No edema. SKIN: Warm, dry, no rash. NEURO: No focal deficits. Alert and oriented x3. PSYCH: Normal mood and affect. DS: Data Data Completed and Pending Labs on day of discharge: Labs from last 24 hours 08/16/23 08/16/23 08/15/23 07:57 04:48 20:28 WBC 5.1 RBC 3.79 L Hgb 9.9 L Hct 33.1 L MCV 87.3 MCH 26.1 MCHC 29.9 L RDW 20.8 H Plt Count 113 L MPV 10.7 H Immature Gran % (Auto) 0.2 Neut % (Auto) 61.2 Lymph % (Auto) 23.0 Hardeman % (Auto) 14.0 H Eos % (Auto) 0.8 Baso % (Auto) 0.8 Lymph # (Auto) 1.17 Hardeman # (Auto) 0.7 H Eos # (Auto) 0.0 Baso # (Auto) 0.0 Abs Immat Gran (auto) 0.01 Absolute Neuts (auto) 3.1 Absolute Nucleated RBC 0.0 Nucleated RBC % 0.0 Platelet Estimate Slightly decreased Hypochromasia 1+ Anisocytosis 1+ Ovalocytes 1+ Blaine Cells 1+ Schistocytes None seen Sodium 139 Potassium 3.4 Chloride 100 Carbon Dioxide 30 Anion Gap 9 BUN 63 H Creatinine 4.40 H Estim Creat Clear Calc
[2023-08-16] MEDS: APIXABAN 5 MG TABLET PO (11:28)
[2023-08-16 12:11] LABS: Glucose Point of Care 196 mg/dl (65-105)
--- NOTE | 2023-08-16 12:54 | PC.NURSE ---
patient taken off the unit for dialysis
[2023-08-16] MEDS: EPOETIN ALFA-EPBX 10,000 UNITS/ML VIAL 10000 UNITS IV PUSH (16:05)
--- NOTE | 2023-08-16 16:40 | PC.NURSE ---
patient returned from dialysis
[2023-08-16] MEDS: BUMETANIDE 1 MG TABLET PO (16:44)
[2023-08-16] MEDS: ATORVASTATIN 10 MG TABLET PO (16:44)
[2023-08-16] MEDS: allopurinoL 100 MG TABLET PO (16:44)
[2023-08-16 17:05] LABS: Glucose Point of Care 129 mg/dl (65-105)
== END 2023-08-16 18:30 | disposition home health service (06) | DRG 673 ==
LOC: ANHED 11:53 → ANH2MED 13:10
PROVIDERS: Internal Medicine Nephrology; Nurse Practitioner Family; Surgery; Admitting Provider Family Medicine; Emergency Provider Family Medicine; PCP Family Medicine; Visit Provider Internal Medicine
PROC: (CPT 36908; principal; 2023-08-15 15:30)
DX: T82.42XA Displacement of vascular dialysis catheter, initial encounter (principal); I50.33 Acute on chronic diastolic (congestive) heart failure; N18.6 End stage renal disease; I13.2 Hypertensive heart and chronic kidney disease with heart failure and with stage 5 chronic kidney disease, or end stage renal disease; N17.9 Acute kidney failure, unspecified; N13.30 Unspecified hydronephrosis; E11.29 Type 2 diabetes mellitus with other diabetic kidney complication; I48.91 Unspecified atrial fibrillation; N40.0 Benign prostatic hyperplasia without lower urinary tract symptoms; D69.6 Thrombocytopenia, unspecified; E11.42 Type 2 diabetes mellitus with diabetic polyneuropathy; E78.2 Mixed hyperlipidemia; D63.1 Anemia in chronic kidney disease; Z96.653 Presence of artificial knee joint, bilateral; Z99.2 Dependence on renal dialysis; Z96.1 Presence of intraocular lens; Z98.42 Cataract extraction status, left eye; Z98.41 Cataract extraction status, right eye; Z79.01 Long term (current) use of anticoagulants
CPT/HCPCS: 36415; 71045; 77001; 80048; 80053; 80069; 82948; 83036; 83735; 85025; 85027; 85610; 86706; 86850; 86860; 86870; 86880; 86900; 86901; 86902; 86922; 87340; 93005; 99285; A9270; C1750; G0257; G0378; J0690; J1644; J2704; J7030; J7040; Q5105

== ENCOUNTER 2023-09-30 08:35 | Outpatient (CLI) | payer MEDICARE, SELFPAY ==
[2023-09-30 09:42] LABS: Albumin Level 3.5 g/dL (3.5-5.1); Anion Gap 8 mmol/L (8-16); Blood Urea Nitrogen 44 mg/dL (9-20); Calcium 8.6 mg/dL (8.4-10.2); Carbon Dioxide 29 mmol/L (22-30); Chloride 101 mmol/L (98-107); Estimated Glomerular Filt Rate 20; Glucose 175 mg/dL (65-110); Phosphorus 3.9 mg/dL (2.5-4.5); Potassium 3.7 mmol/L (3.4-5.0); Sodium 138 mmol/L (137-145)
== END 2023-09-30 08:36 | disposition home or self-care (01) ==
PROVIDERS: PCP Family Medicine; Visit Provider Internal Medicine Nephrology
DX: N17.9 Acute kidney failure, unspecified (principal); N18.32 Chronic kidney disease, stage 3b
CPT/HCPCS: 36415; 80069

== ENCOUNTER 2023-10-04 09:19 | Outpatient (CLI) | payer MEDICARE, SELFPAY ==
[2023-10-04 09:57] LABS: Albumin Level 3.5 g/dL (3.5-5.1); Anion Gap 12 mmol/L (8-16); Blood Urea Nitrogen 76 mg/dL (9-20); Calcium 7.8 mg/dL (8.4-10.2); Carbon Dioxide 24 mmol/L (22-30); Chloride 106 mmol/L (98-107); Estimated Glomerular Filt Rate 15; Glucose 291 mg/dL (65-110); Phosphorus 4.9 mg/dL (2.5-4.5); Potassium 3.6 mmol/L (3.4-5.0); Sodium 142 mmol/L (137-145)
== END 2023-10-04 09:20 | disposition home or self-care (01) ==
LOC: ANHLAB 09:20
PROVIDERS: PCP Family Medicine; Visit Provider Internal Medicine Nephrology
DX: N18.32 Chronic kidney disease, stage 3b (principal); N17.9 Acute kidney failure, unspecified
CPT/HCPCS: 36415; 80069

== ENCOUNTER 2023-10-07 10:57 | Outpatient (CLI) | payer MEDICARE, SELFPAY ==
[2023-10-07 12:02] LABS: Albumin Level 3.5 g/dL (3.5-5.1); Anion Gap 9 mmol/L (8-16); Blood Urea Nitrogen 89 mg/dL (9-20); Calcium 7.8 mg/dL (8.4-10.2); Carbon Dioxide 25 mmol/L (22-30); Chloride 109 mmol/L (98-107); Estimated Glomerular Filt Rate 17; Glucose 166 mg/dL (65-110); Phosphorus 5.3 mg/dL (2.5-4.5); Potassium 3.6 mmol/L (3.4-5.0); Sodium 143 mmol/L (137-145)
== END 2023-10-07 10:58 | disposition home or self-care (01) ==
PROVIDERS: PCP Family Medicine; Visit Provider Internal Medicine Nephrology
DX: N17.9 Acute kidney failure, unspecified (principal); N18.32 Chronic kidney disease, stage 3b
CPT/HCPCS: 36415; 80069

== ENCOUNTER 2023-10-09 10:55 | Outpatient (CLI) | payer MEDICARE, SELFPAY ==
[2023-10-09 12:00] LABS: Albumin Level 3.6 g/dL (3.5-5.1); Anion Gap 11 mmol/L (8-16); Blood Urea Nitrogen 100 mg/dL (9-20); Calcium 7.8 mg/dL (8.4-10.2); Carbon Dioxide 23 mmol/L (22-30); Chloride 107 mmol/L (98-107); Estimated Glomerular Filt Rate 16; Glucose 188 mg/dL (65-110); Phosphorus 5.6 mg/dL (2.5-4.5); Potassium 3.6 mmol/L (3.4-5.0); Sodium 141 mmol/L (137-145)
== END 2023-10-09 10:56 | disposition home or self-care (01) ==
PROVIDERS: PCP Family Medicine; Visit Provider Internal Medicine Nephrology
DX: N17.9 Acute kidney failure, unspecified (principal); N18.32 Chronic kidney disease, stage 3b
CPT/HCPCS: 36415; 80069

== ENCOUNTER 2023-10-16 09:38 | Outpatient (CLI) | payer MEDICARE, SELFPAY ==
[2023-10-16 10:30] LABS: Hematocrit 33.6 % (42.0-52.0); Hemoglobin 10.1 g/dL (14.0-18.0); Mean Corpuscular HGB Conc 30.1 g/dl (32-36); Mean Corpuscular Hemoglobin 28.5 pg (26-34); Mean Corpuscular Volume 94.6 fl (80-100); Mean Platelet Volume 11.4 fl (7.4-10.4); Platelet Count Result 102 k/mm3 (150-375); Red Blood Count 3.55 M/mm3 (4.6-6.20); Red Cell Distribution Width 17.3 % (11.5-14.5); White Blood Count 4.4 K/mm3 (4.5-10.0)
[2023-10-16 10:32] LABS: Creatinine Urine 87.1 mg/dL; Total Protein Urine Random 26 mg/dL
[2023-10-16 10:34] LABS: Appearance Urine Clear (Clear); Bacteria Urine None Seen /hpf; Bilirubin Urine Negative (Negative); Blood Urine Negative (Negative); Color Urine Yellow (Yellow); Glucose Urine UA Negative (Negative); Ketones Urine Negative (Negative); Leukocyte Esterase Ur Trace LEU/UL (Negative); Nitrate Urine Negative (Negative); Non Pathogenic Casts 0-2; Protein Urine Trace mg/dL (Negative); RBC Urine 0-2 /hpf (0-2); Specific Grav Ur 1.013 (1.001-1.035); Squamous Epithelial Cell Urine None Seen /hpf (Few); Urobilinogen Urine 0.2 mg/dL (<2.0); WBC Urine 0-5 /hpf (0-3)
[2023-10-16 10:37] LABS: Alanine Aminotransferase 13 U/L (6-50); Albumin Level 3.4 g/dL (3.5-5.1); Alkaline Phosphatase 106 U/L (38-126); Anion Gap 8 mmol/L (8-16); Aspartate Amino Transferase 21 U/L (17-59); Blood Urea Nitrogen 99 mg/dL (9-20); Calcium 8.2 mg/dL (8.4-10.2); Carbon Dioxide 24 mmol/L (22-30); Chloride 110 mmol/L (98-107); Cholesterol 87 mg/dL (0-200); Estimated Glomerular Filt Rate 19; Glucose 202 mg/dL (65-110); HDL Direct 29 mg/dL; Phosphorus 3.8 mg/dL (2.5-4.5); Potassium 3.2 mmol/L (3.4-5.0); Sodium 142 mmol/L (137-145); Triglycerides 68 mg/dL (<150)
[2023-10-16 10:46] LABS: Parathyroid Intact 860.2 pg/mL (7.5-53.5)
[2023-10-16 10:48] LABS: LDL Cholesterol Direct 51 mg/dL
[2023-10-16 10:54] LABS: Add Urine Microscopic? YES
[2023-10-16 11:05] LABS: Hemoglobin A1C 7.5 % (<5.7)
[2023-10-16 11:06] LABS: Thyroid Stimulating Hormone 0.651 uIU/mL (0.465-4.680)
[2023-10-16 11:17] LABS: Vitamin D 25 Hydroxy 72.5 ng/mL
[2023-10-16 11:23] LABS: Microalbumin Urine Random 84.6 mg/L (0-16.7)
[2023-10-16 11:29] LABS: Creatinine Urine 87.7 mg/dL; MALB Creatinine Ratio 96.5 mg/g (0-30)
== END 2023-10-16 09:39 | disposition home or self-care (01) ==
LOC: ANHLAB 09:47
PROVIDERS: PCP Family Medicine; Referring Provider Family Medicine; Visit Provider Internal Medicine Nephrology
DX: D50.9 Iron deficiency anemia, unspecified (principal); E11.40 Type 2 diabetes mellitus with diabetic neuropathy, unspecified; E78.2 Mixed hyperlipidemia; I10 Essential (primary) hypertension; I50.9 Heart failure, unspecified; Z00.00 Encounter for general adult medical examination without abnormal findings; E55.9 Vitamin D deficiency, unspecified; I12.9 Hypertensive chronic kidney disease with stage 1 through stage 4 chronic kidney disease, or unspecified chronic kidney disease; N18.4 Chronic kidney disease, stage 4 (severe); N25.81 Secondary hyperparathyroidism of renal origin
CPT/HCPCS: 36415; 80053; 80061; 82043; 82306; 82570; 83036; 83970; 84100; 84156; 84443; 85027

== ENCOUNTER 2023-11-10 01:40 | Day surgery (SDC) | payer MEDICARE, SELFPAY ==
--- NOTE | 2023-11-03 14:41 | PC.NURSE ---
Report to the Outpatient Waiting Room, entrance under the green pavilion located off [facility], at time _1100 on date _11/10/23 . Planned Procedure Time: __1300 . Time changes happen often and if your time is changed the preop area will call you the afternoon before. - You and your visitor will be asked to self-screen and do not enter if you have any COVID symptoms. - A mask is optional within the hospital at this time. Patients may have clear liquids (water, carbonated beverages, clear teas, apple juice) until 3 hours prior to surgery ( 10 AM)with a maximum of 20 ounces. - No food from midnight until time of surgery - Infants may have breast milk until 4 hours before surgery, infant formula 6 hours prior to surgery. - Children will be allowed to drink immediately following surgery. If applicable, please bring a bottle or sippy cup to assist with drinking. Juice, water, soda, and popsicles are readily available. For infants on formula, please bring formula the day of surgery. Pacifiers are allowed. Take the following medications with a SIP of water the morning of surgery: _CARVEDILOL DO NOT STOP ANY OF YOUR OTHER PRESCRIPTION MEDICATIONS PRIOR TO SURGERY ?EXCEPT THE FOLLOWING Medications to discontinue per physician ___HOLD APIXABAN 2 DAYS PRE OP PER DR FISHER.LAST DOSE 11/07/23 AND PT STATES HOLD VICTOZA PER DR SANDOVAL .STATES LAST DOSE 10/30/23. HOLD ALL VITAMINS AND SUPPLEMENTS 3 DAYS PRE OP.LAST DOSE_11/06/23 Please no make-up, nail syriac, hairspray, perfume, deodorant, or body powder the day of surgery. No jewelry (including any body piercings) or valuables the day of surgery, leave them at home. Please take a shower or bath the night before, or the morning of, surgery with an antibacterial soap. Wear comfortable, loose fitting clothing. Children are encouraged to wear pajamas. - Jewelry must be removed prior to entering the operating room. Rings and piercings that are not removed may be cut off. - The hospital will not accept responsibility for valuables. - Please leave all valuables, including medications, at home the day of surgery. If you are going home after surgery, a licensed funeral car driver must drive you home. - NO public transportation without another adult if you receive anesthesia. - We recommend that an adult stay with you for 24 hours following discharge. - We also recommend that you do not drive, make important decision, drink alcoholic beverages, or take any drugs that were not prescribed by your health care provider for at least 24 hours after your discharge time. For Pediatric surgeries, we recommend two adults accompany the child home. Follow any additional instructions given to you from your surgeon. If you or anyone in your household have experienced Covid symptoms in the past week, please notify your surgeon or the nurse liaison at the phone number below for possible testing. Telephone instructions given to ___PATIENT and asked if any additional questions and then verbalized understanding. Patient advised to call surgeon office or pre surgery nurse liaison [phone] if any additional questions.
[2023-11-03 14:54] VITALS: BMI 34.7
--- NOTE | 2023-11-10 11:05 | WPDHPUPDATE1 ---
History and Physical Update Update Date/Time: 11/10/23 11:05 History and Physical has been reviewed, including an updated exam of the patient. There are NO changes in the patient's condition. Risks, benefits, and alternatives have been discussed and questions answered. Patient agrees to proceed with procedure.
[2023-11-10 11:22] LABS: Glucose Point of Care 129 mg/dl (65-105)
--- NOTE | 2023-11-10 12:22 | WPDANESEPPF ---
Anes - Initial Pre Proc Eval Procedure: Operation Date: 11/10/23 13:00 Proposed Procedures p Removal Right Internal Jugular Vein Tunneled Hemodialysis Catheter - Chanda Schulte MD Date/Time: 11/10/23 12:22 Surgeon: Chanda Schulte MD Pre Op Diagnosis: renal failure Patient Data Age: 83 Gender: M Height: 1.75 m Weight: 106.6 kg Allergies Allergy/AdvReac Type Severity Reaction Status Date / Time No Known Allergies Allergy Verified 11/03/23 14:27 Home Medications Medication Instructions Recorded Confirmed Type blood pressure monitor #1 ea 01/10/20 10/22/23 Rx blood sugar diagnostic (Blood #100 ea 01/10/20 10/22/23 Rx Glucose Test strips) blood-glucose meter #1 ea 01/10/20 10/22/23 Rx lancets #200 ea 01/10/20 10/22/23 Rx pen needle, diabetic 31 gauge x #100 ea 08/23/22 10/22/23 Rx 5/16 (BD Ultra-Fine Short Pen Needle) cholecalciferol (vitamin D3) 50 50 mcg PO DAILY 12/26/22 11/03/23 History mcg (2,000 unit) capsule allopurinol 100 mg tablet 100 mg PO DAILY #90 tabs 01/30/23 11/03/23 Rx atorvastatin 10 mg tablet 10 mg PO DAILY #90 tabs 03/14/23 11/03/23 Rx albuterol sulfate 90 mcg/actuation 2 puff inhalation Q6HRT PRN 04/23/23 11/03/23 Rx aerosol inhaler (Proventil HFA) Shortness Of Breath #6.7 grams calcitriol 0.25 mcg capsule 0.25 mcg PO 4XW #16 caps 05/01/23 11/03/23 Rx apixaban 2.5 mg tablet (Eliquis) 2.5 mg PO Q12HR #180 tabs 07/30/23 11/03/23 Rx carvedilol 12.5 mg tablet See Rx Instructions .Route 08/16/23 11/03/23 Rx .COMPLEX #180 tabs tramadol 50 mg tablet 50 mg PO Q8H PRN pain #90 tabs 08/27/23 11/03/23 Rx liraglutide 0.6 mg/0.1 mL (18 mg/3 See Rx Instructions .Route 09/22/23 11/03/23 Rx mL) subcutaneous pen injector .COMPLEX #18 mL (Victoza 2-Vidal) gabapentin 300 mg capsule 300 mg PO QHS #30 caps 09/29/23 11/03/23 Rx bumetanide 1 mg tablet 1 mg PO .FOUR TIMES A WEEK 10/20/23 11/03/23 History cyanocobalamin (vitamin B-12) 1,000 mcg PO DAILY 11/03/23 11/03/23 History 1,000 mcg capsule ferrous sulfate 325 mg (65 mg 650 mg PO EVERY OTHER DAY 11/03/23 11/03/23 History iron) tablet (FeroSul) Laboratory Tests 11/10/23 11:20 POC Capillary Glucose 129 H mg/dl (65-105) Patient hx anesthesia problems: none Family hx anesthesia problems: none Results Review: All pre-operative results and documents have been reviewed as part of the pre-operative evaluation. 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 Essential (primary) hypertension Hyperlipidemia associated with type 2 diabetes mellitus Hypertension associated with diabetes Iron deficiency anemia Mixed hyperlipidemia Pulmonary hypertension Umbilical hernia Surgical History Surgical History Normal colonoscopy (~2007) S/P insertion of spinal cord stimulator Status post bilateral knee replacements Status post cataract extraction of both eyes with insertion of intraocular lens Family History Family History Father Cerebrovascular accident Mother Hypertension Sibling Hypertension Kidney disease, chronic, end stage on dialysis Social History Social History Social History: Surrogate medical decision maker: Kathy Renata, spouse. Code status:
[2023-11-10 12:25] VITALS: BP 152/78; PULSE 48; RESP 14; TEMP 36.8; O2SAT 95
[2023-11-10] MEDS: SODIUM CHLORIDE 0.9% IV 500 ML 30 ML IV CONT (12:27)
[2023-11-10] MEDS: BUPIVACAINE/EPINEPHRINE 0.5% 30 ML VIAL INFILTRATE (13:02)
[2023-11-10 13:08] VITALS: BP 152/77; PULSE 46; RESP 18
--- NOTE | 2023-11-10 13:19 | W.PM.PROC2 ---
Procedure Note - Detailed Date of Procedure 11/10/23 Pre-op Diagnosis renal failure Post-op Diagnosis Same Procedure Performed removal of previously placed right internal jugular tunneled hemodialysis catheter Surgeon Chanda Schulte MD Anesthesia MAC and Local Indications 83-year-old male presenting to the office for removal of right internal jugular tunneled hemodialysis catheter. Patient had dialysis catheter placed in late August for acute renal failure. He continued to have dialysis treatments for the month September, however his kidney function has recovered enough to stop dialysis at this point. Findings Right internal jugular tunneled hemodialysis catheter Description of Procedure The patient was taken the operating room and placed in the supine position. After adequate induction of MAC anesthesia, the patient was prepped and draped in the normal sterile fashion. I began by localizing the area and around this catheter in the right chest. I was then able to bluntly dissect with a hemostat around the cuff. Once the cuff was completely freed, I was able to put gentle traction on the catheter and remove the catheter in full. I then held pressure at the level of the right IJ for approximately 5 minutes. No bleeding was noted. Sterile dressing was then placed on the right chest wound. The patient tolerated the procedure well and was awake and alert postoperatively. He will be transferred to the recovery room in stable condition. Estimated Blood Loss 5 Pathology None sent Complications No immediate complications Condition Stable Disposition PACU [facility] Billing Surgery - Charge Forward: Surgery Billing
[2023-11-10 13:35] VITALS: BP 171/75; PULSE 48; RESP 18
[2023-11-10 14:05] VITALS: BP 155/77; PULSE 44; RESP 18
== END 2023-11-10 14:40 | disposition home or self-care (01) ==
PROVIDERS: PCP Family Medicine; Visit Provider Surgery
PROC: (CPT 36589; principal; 2023-11-10 13:00)
DX: Z49.01 Encounter for fitting and adjustment of extracorporeal dialysis catheter (principal); D51.9 Vitamin B12 deficiency anemia, unspecified; N40.0 Benign prostatic hyperplasia without lower urinary tract symptoms; I48.91 Unspecified atrial fibrillation; E11.22 Type 2 diabetes mellitus with diabetic chronic kidney disease; I12.9 Hypertensive chronic kidney disease with stage 1 through stage 4 chronic kidney disease, or unspecified chronic kidney disease; N18.32 Chronic kidney disease, stage 3b; I11.0 Hypertensive heart disease with heart failure; I50.9 Heart failure, unspecified; D50.9 Iron deficiency anemia, unspecified; E78.2 Mixed hyperlipidemia; E66.9 Obesity, unspecified; Z68.33 Body mass index [BMI] 33.0-33.9, adult; Z79.51 Long term (current) use of inhaled steroids; Z79.01 Long term (current) use of anticoagulants; Z79.891 Long term (current) use of opiate analgesic; Z98.890 Other specified postprocedural states; Z98.1 Arthrodesis status; Z87.891 Personal history of nicotine dependence; Z82.49 Family history of ischemic heart disease and other diseases of the circulatory system
CPT/HCPCS: 36590; 82948; J0690; J2704; J7040

== ENCOUNTER 2023-12-09 09:25 | Outpatient (CLI) | payer MEDICARE, SELFPAY ==
[2023-12-09 10:31] LABS: Albumin Level 3.3 g/dL (3.5-5.1); Anion Gap 11 mmol/L (4-12); Calcium 8.1 mg/dL (8.4-10.2); Carbon Dioxide 19 mmol/L (22-30); Chloride 109 mmol/L (98-107); Estimated Glomerular Filt Rate 12; Glucose 205 mg/dL (65-110); Phosphorus 6.3 mg/dL (2.5-4.5); Potassium 4.1 mmol/L (3.4-5.0); Sodium 139 mmol/L (137-145)
[2023-12-09 10:59] LABS: Blood Urea Nitrogen 124 mg/dL (9-20)
== END 2023-12-09 09:26 | disposition home or self-care (01) ==
PROVIDERS: PCP Family Medicine; Visit Provider Internal Medicine Nephrology
DX: N18.4 Chronic kidney disease, stage 4 (severe) (principal); R60.0 Localized edema
CPT/HCPCS: 36415; 80069

== ENCOUNTER 2023-12-18 09:03 | Inpatient (IN) | payer MEDICARE, SELFPAY ==
[2023-12-18] VITALS (33 sets, daily range): BP systolic 108–129; BP diastolic 60–84; PULSE 51–76; RESP 12–20; TEMP 35.8–36.6; O2SAT 91–99; BMI 42.0; BMI 41.7
--- NOTE | ~2023-12-18 | CT_ITS ---
EXAMINATION: CT brain wo con DATE: 12/20/2023 15:25 INDICATION: confusion . TECHNIQUE: Computed tomography (CT) of the head was performed without intravenous contrast. The mA wa s adjusted according to patient size. Iterative reconstruction technique was employed. The dose-lengt h product was 1210.67 mGy-cm. COMPARISON: None. FINDINGS: Moderate motion artifact which persisted after repeat imaging. No acute intracranial hemorrhage or extra-axial fluid collection. No hydrocephalus, mass, or herniation. No acute ischemic infarct. Unremarkable dural venous sinus attenuation. No acute osseous abnormality. Right mastoid fluid, the remaining aerated spaces are clear. Moderate atrophy and chronic white matter change. Atherosclerotic intracranial calcification. Bilater al lens replacements. Bilateral basal ganglia calcification. IMPRESSION: Motion limited examination. No definite acute intracranial process. Reviewed, dictated and finalized at location K.
--- NOTE | ~2023-12-18 | XR_ITS ---
EXAMINATION: XR fl guide central line place DATE: 12/25/2023 14:43 INDICATION: Tunneled dialysis catheter insertion TECHNIQUE: 2 fluoroscopic images of the right upper chest were obtained during procedure performed by Dr. Julian. Radiologist was not present for the imaging or procedure. The amount of fluoroscopy time u sed during this procedure was 0.7 minutes. COMPARISON: None. FINDINGS: Large-bore dual-lumen likely tunneled right subclavian central venous catheter with distal tip projec ting over the mid superior vena cava. Visual is portions of the right upper lung is clear. No pneumot horax. IMPRESSION: 1. Right subclavian central venous catheter tip at the midsuperior vena cava. Reviewed, dictated and finalized at location A.
--- NOTE | ~2023-12-18 | CT_ITS ---
EXAMINATION: CT diagnostic chest wo con DATE: 12/20/2023 16:30 INDICATION: possible pleural effusions seen on cxr,r/o pna/pleura effusi TECHNIQUE: Computed tomography (CT) of the chest was performed with 100 mL Omnipaque-350 intravenous contrast. Automated exposure control and iterative reconstruction technique were employed. The dose-l ength product was 1028.79 mGy-cm. COMPARISON: X-ray chest, same date. FINDINGS: CHEST: Exam limited by respiratory motion and beam hardening from arm down positioning. Thoracic aorta: No significant dilation or calcification. Lung parenchyma and airways: Limited evaluation due to motion. Patent airways. Dependent atelectasis. Bibasilar scar. Thoracic inlet, axillae and chest wall: No thyroid or soft tissue mass. No axillary lymphadenopathy. Severe diffuse body wall edema. Moderate bilateral symmetric gynecomastia. Stimulator leads in the mi dthoracic canal. Mediastinum: Enlarged central pulmonary arteries, as can be seen with pulmonary arterial hypertension . Heart and pericardium: Enlarged. Coronary artery calcifications: Moderate. Pleura: Small bilateral pleural fluid collections, larger on the right. Upper abdomen: Moderate ascites. 5.1 cm splenic cyst. Hemorrhagic/proteinaceous right upper pole cyst . Thoracic bones: No acute osseous finding in the chest. IMPRESSION: Cardiomegaly. Pulmonary arterial hypertension. Small bilateral pleural effusions. Moderate ascites. Severe body wall edema. Reviewed, dictated and finalized at location K.
--- NOTE | ~2023-12-18 | XR_ITS ---
Clinical Indication: Swelling, fluid retention AP and lateral views of the chest: Comparison: 08/15/2023 Findings: Stable probable left midlung scarring. The lungs are otherwise clear, without evidence of f ocal consolidation or pleural effusion. Cardiomediastinal silhouette is stable. Bones and soft tissu es are unremarkable. Impression: Stable left midlung scarring, otherwise clear lungs. Stable cardiomegaly. Reviewed, dictated and finalized at location M. Impression: Stable left midlung scarring, otherwise clear lungs. Stable cardiomegaly.
--- NOTE | ~2023-12-18 | US_ITS ---
EXAMINATION: US renal BI DATE: 12/20/2023 14:28 INDICATION: LINDSEY on CKD TECHNIQUE: Multiple grayscale and Doppler ultrasound images of the kidneys were obtained. COMPARISON: CT abdomen pelvis 07/09/2023 FINDINGS: Technically limited examination due to body habitus, bowel gas, edema, respiratory motion, and diffic ulty positioning. The right kidney measures 11.3 x 5.9 x 4.7 cm. The left kidney measures 12.0 x 6.3 x 5.3 cm. The kidneys demonstrate increased parenchymal echogenicity. Bilateral exophytic simple cyst measuring up to 4.8 cm on the right and 5.7 cm on the left There is no hydronephrosis. The bladder i s incompletely distended and therefore not well evaluated. Moderate volume peritoneal fluid. IMPRESSION: Technically limited examination as detailed above. Medical renal disease. Moderate ascites. The previ ously described indeterminate bilateral renal lesions are not detected in this examination. The prior recommendation for MRI of the kidneys contrast is unchanged. Reviewed, dictated and finalized at location K. IMPRESSION: Technically limited examination as detailed above. Medical renal disease. Moder ate ascites. The previously described indeterminate bilateral renal lesions are not detected in this examination. The prior recommendation for MRI of the kidn eys contrast is unchanged.
--- NOTE | ~2023-12-18 | US_ITS ---
EXAMINATION: US venous doppler UE RT DATE: 12/19/2023 10:47 INDICATION: Asymmetric right upper limb swelling TECHNIQUE: Grayscale images without and with compression and Doppler images of the right upper extrem ity veins were obtained. COMPARISON: None. FINDINGS: The right internal jugular vein, subclavian vein, axillary vein, brachial vein, basilic vein, cephali c vein, radial vein, and ulnar vein are patent. IMPRESSION: 1. Patent right upper extremity veins. No evidence of venous thrombosis. Reviewed, dictated and finalized at location A.
--- NOTE | ~2023-12-18 | US_ITS ---
EXAMINATION: US right upper quadrant DATE: 12/26/2023 07:57 INDICATION: Hyperbilirubinemia. TECHNIQUE: Multiple grayscale and Doppler ultrasound images of the abdomen were obtained. COMPARISON: Chest CT 12/20/2023 FINDINGS: The visualized portions of the head and body of the pancreas are normal. There are cysts in the liver measuring up to 12 mm. There is antegrade flow in main portal vein. The gallbladder is nor mal in size contains sludge and stones. Gallbladder wall thickening is noted. There is no sonographic Atikns's sign. The common duct is normal and measures 4 mm. There is a small volume of perihepatic a scites. IMPRESSION: 1. Cholelithiasis. Gallbladder wall thickening is likely secondary to interstitial edema. 2. Small volume of perihepatic ascites. Reviewed, dictated and finalized at location A. IMPRESSION: 1. Cholelithiasis. Gallbladder wall thickening is likely secondary to interstit ial edema. 2. Small volume of perihepatic ascites.
--- NOTE | ~2023-12-18 | XR_ITS ---
EXAMINATION: XR abdomen/kub 1V DATE: 12/19/2023 21:27 INDICATION: Central line placement. TECHNIQUE: A supine view of the abdomen was obtained. COMPARISON: Abdomen radiograph 02/11/2021 FINDINGS: The upper abdomen and right side of the abdomen are excluded. There is a left groin cathete r with tip overlying the left external iliac vein. Electrodes overlie the spine. IMPRESSION: 1. Left groin catheter with tip in the expected area of the left external iliac vein. Reviewed, dictated and finalized at location E.
--- NOTE | ~2023-12-18 | XR_ITS ---
XR chest port-a-cath/central DATE: 12/25/2023 15:00 INDICATION: Insertion of tunneled dialysis catheter TECHNIQUE: Portable AP view on 12/25/2023 at 1455 hours COMPARISON: 12/20/2023 portable AP chest FINDINGS: There is interval placement of a dual lumen right subclavian central venous catheter, the d istal tip overlying the proximal superior vena cava. No pneumothorax is evident. Cardiomegaly, mild pulmonary vascular congestion, prominence of the minor fissure and mild infiltrate or atelectasis in the mid and lower lung zones. Electrodes overlie the thoracic spinal canal. Osteopenia. Diffuse hepatic skeletal hyperostosis of the thoracic spine. Rotator cuff atrophy on the left. IMPRESSION: Interval right internal jugular dialysis catheter placement, distal tip overlying proxima l superior vena cava; no evidence of pneumothorax Remainder, congestive changes, mild patchy infiltrate or atelectasis in the mid and lower lung zones Reviewed, dictated and finalized at Location A. Reviewed, dictated and finalized at location B. IMPRESSION: Interval right internal jugular dialysis catheter placement, distal tip overlying proximal superior vena cava; no evidence of pneumothorax Remainder, congestive changes, mild patchy infiltrate or atelectasis in the mid and lower lung zones
--- NOTE | ~2023-12-18 | XR_ITS ---
EXAMINATION: XR chest 1V portable Exam Date/Time: 12/20/2023 15:27 CDT HISTORY: altered mental status, fever Comparison: 12/18/2023. RESULT: Lines, tubes, and devices: Stimulator leads over the midthoracic spine. Lungs and pleura: Prominent pulmonary vessels with cephalization. Chronic mid left lung scar. Minor fissure fluid. Minimal bilateral costophrenic angle blunting. Cardiomediastinal silhouette: Stable. Other: No acute osseous or upper abdominal finding. IMPRESSION: Pulmonary congestion. Possible small bilateral pleural effusions. Reviewed, dictated and finalized at location K.
--- NOTE | 2023-12-18 09:05 | ECG_ITS ---
SEE SCANNED COPY FOR CONFIRMED REPORT MTDD
--- NOTE | 2023-12-18 09:19 | ED.SOB ---
HPI - SOB/Dyspnea General Chief Complaint: Shortness of Breath/Dyspnea Stated Complaint: swelling Time Seen by Provider: 12/18/23 09:12 History of Present Illness HPI Narrative: 81-year-old male history of AFib on Eliquis, end-stage CKD in, CHF, diabetes presents to the emergency room for evaluation of increased fatigue and shortness of breath patient states his fatigue is gradually gotten worse the past couple of weeks. Denies chest pain, palpitations, syncopal episodes. Patient states he was last dialyzed over 1 month ago, and had his dialysis catheter removed in early November. Related Data Home Medications Medication Instructions Recorded Confirmed cholecalciferol (vitamin D3) 50 50 mcg PO DAILY 12/26/22 11/03/23 mcg (2,000 unit) capsule bumetanide 1 mg tablet 1 mg PO .FOUR TIMES A WEEK 10/20/23 11/03/23 cyanocobalamin (vitamin B-12) 1,000 mcg PO DAILY 11/03/23 11/03/23 1,000 mcg capsule ferrous sulfate 325 mg (65 mg 650 mg PO EVERY OTHER DAY 11/03/23 11/03/23 iron) tablet (FeroSul) Allergies Allergy/AdvReac Type Severity Reaction Status Date / Time No Known Allergies Allergy Verified 11/10/23 12:27 Review of Systems Review of Systems: ROS unremarkable except for noted in HPI PMFSH Past Medical History Medical History Atrial fibrillation B12 deficiency anemia Benign prostatic hyperplasia Chronic anemia Chronic anticoagulation Chronic kidney disease, stage 3b Congestive heart failure Echocardiogram October 2020: Indeterminate diastolic function, EF 65-70%, mild right ventricular enlargement, mildly increased left ventricular wall thickness, mild left atrial enlargement, mild mitral valve regurgitation, mild tricuspid valve regurgitation, moderate pulmonary hypertension with RVSP 59, 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 Essential (primary) hypertension Hyperlipidemia associated with type 2 diabetes mellitus Hypertension associated with diabetes Iron deficiency anemia Mixed hyperlipidemia Pulmonary hypertension Umbilical hernia Surgical History Surgical History Normal colonoscopy (~2007) S/P insertion of spinal cord stimulator Status post bilateral knee replacements Status post cataract extraction of both eyes with insertion of intraocular lens Family History Family History Father Cerebrovascular accident Mother Hypertension Sibling Hypertension Kidney disease, chronic, end stage on dialysis Social History Social History Social History: Surrogate medical decision maker: Kathy Yanez, spouse. Code status: Full code. Smoking packs per day: 0.5 Smoking cigarettes per day: 10.0 Years smoked: 3 Smoking pack-years: 1.50 Smoking status: Former smoker Tobacco type: cigarettes Second hand tobacco smoke exposure: No Smoking end date: 08/04/60 Alcohol intake: never Substance use: never Substance use type: does not use Do You Feel Safe in your Home?: Yes Lack of Transportation: No Lack of Food: Never True Current Housing: I Have Housing Concerned About Future Housing: No Difficulty Paying Gas/Electric Bills: No Difficulty Paying for Meds: No Currently Unemployed: No Education: Don't Know Difficulty w/ Childcare or Family Care: No Living arrangements: with family Additional living arrangements comments: Lives with spouse of nearly 60 years. They have a son and daughter. Occupation/Education: retired Additional occupation/education comments: Retired from working with [employer]. Gender identity (if verbalized by the patient): Male Sexual Orientation (if Verbalized by the Patient): Straight or Heterosexual Spiritual care concerns: No Exam Narrative: GENERAL: Chronically ill-a
[2023-12-18 09:37] LABS: Basophils Percent Auto 0.6 % (0.2-1.2); Eosinophils Absolute Auto 0.1 K/mm3 (0-0.3); Eosinophils Percent Auto 0.9 % (0-4.4); Hematocrit 32.9 % (42.0-52.0); Hemoglobin 10.5 g/dL (14.0-18.0); Immature Granulocyte Absolute 0.02 K/mm3 (0.00-0.031); Immature Granulocyte Percent A 0.4 % (0-0.5); Immature Platelet Fraction Pct 4.9 % (0.9-11.2); Lymphocytes Absolute Auto 0.61 K/mm3 (0.9-3.2); Lymphocytes Percent Auto 11.4 % (18.3-44.2); Mean Corpuscular HGB Conc 31.9 g/dl (32-36); Mean Corpuscular Hemoglobin 30.3 pg (26-34); Mean Corpuscular Volume 95.1 fl (80-100); Mean Platelet Volume 12.6 fl (7.4-10.4); Monocytes Absolute Auto 0.6 K/mm3 (0.1-0.6); Monocytes Percent Auto 11.2 % (2.6-8.5); Neutrophils Absolute Auto 4.1 K/mm3 (1.3-6.7); Neutrophils Percent Auto 75.5 % (45.5-73.1); Platelet Count Result 63 k/mm3 (150-375); Red Blood Count 3.46 M/mm3 (4.6-6.20); Red Cell Distribution Width 17.4 % (11.5-14.5); White Blood Count 5.4 K/mm3 (4.5-10.0)
[2023-12-18 09:52] LABS: Partial Thromboplastin Time 33.4 Seconds (22.3-36.8); Prothrombin Time 24.6 Seconds (11.1-14.7)
[2023-12-18 09:54] LABS: Alanine Aminotransferase 61 U/L (6-50); Albumin Level 3.2 g/dL (3.5-5.1); Alkaline Phosphatase 245 U/L (38-126); Anion Gap 10 mmol/L (4-12); Aspartate Amino Transferase 69 U/L (17-59); Bilirubin,Total 3.9 mg/dL (0.2-1.3); Carbon Dioxide 20 mmol/L (22-30); Chloride 108 mmol/L (98-107); Estimated CRCL calculation 12 ml/min; Estimated Glomerular Filt Rate 11; Glucose 168 mg/dL (65-110); Magnesium 2.2 mg/dL (1.6-2.3); Potassium 4.1 mmol/L (3.4-5.0); Sodium 138 mmol/L (137-145)
[2023-12-18 10:14] LABS: Blood Urea Nitrogen > 120 mg/dL (9-20); NT Pro B Type Natriuretic Pept > 30000 pg/mL (19.9-100); Troponin I 0.073 ng/mL (0.000-0.034)
[2023-12-18 10:22] LABS: Platelet Estimate Decreased (Adequate); Schistocytes Rare
[2023-12-18] MEDS: BUMETANIDE INJ 1 MG/4 ML VIAL 2 MG IV PUSH (11:32)
[2023-12-18 15:13] LABS: Troponin I 0.062 ng/mL (0.000-0.034)
--- NOTE | 2023-12-18 15:22 | ADMGEN ---
This patient, Khalif Yanez, was admitted to Virtual [facility] IMU[facility]. Patient/family oriented to hospital policies and general routines including ID bracelet, bed and alarms, visiting hours, pain management, procedures, bathroom and other care routines, personal items, smoking policy, room service/diet, and visiting hours. Information on how to activate the Rapid Response Team has been discussed. Patient/Family are encouraged to report perceived risks to care and to ask questions if they do not understand what they are told or what they should do.
--- NOTE | 2023-12-18 16:31 | PM.IMHP ---
H&P: HPI History of Present Illness Date/Time: 12/18/23 16:31 Chief Complaint: SOB Narrative: 83 y/o M presents here with shortness of breath with exertion, BLE edema, and periorbital edema with PMH of AFib, CKD 3b, chronic anemia, BPH, CHF, DM, HTN, HLD, VANNESA, and pulmonary HTN. Patient presents here with exertional shortness of breath, lower extremity swelling, and periorbital edema. States the shortness of breath and fatigue have gradually worsened over the last 2-3 weeks. Patient has history of CKD, was on dialysis for approximately 3 months, last dialysis treatment on 09/29/2023, has since had dialysis catheter removed on 11/10/2023. Per nephrology note on 10/20/2023, patient was started on hemodialysis in July of 2023 due to diuretic resistance in fluid overload. Labs in September of 2023 demonstrated evidence of renal recovery and confirmed with 24 hour urine collection. Denies any reduction in urine output. Denies fever, chills, or body aches. Reports mild congestion x1 week otherwise no other new symptoms. Initial VS at presentation: 97.8? F, HR 61, R 20, 124/77, and 95% on RA. ED workup showed: No leukocytosis, hemoglobin 10.5, platelet count 63, INR 2.0, creatinine 5.9 and GFR 11, total bilirubin 3.9, AST 69, ALT 61, initial troponin 0.073, and BNP greater than 30,000. Review of Systems Review of Systems: All systems reviewed & are unremarkable except as noted in HPI and below PMFSH Past Medical History Medical History (Updated 12/18/23 @ 17:01 by Mala Rolon APRN) Anemia of chronic disease Atrial fibrillation B12 deficiency anemia Benign prostatic hyperplasia Chronic anemia Chronic anticoagulation Chronic kidney disease, stage 3b Congestive heart failure Echocardiogram October 2020: Indeterminate diastolic function, EF 65-70%, mild right ventricular enlargement, mildly increased left ventricular wall thickness, mild left atrial enlargement, mild mitral valve regurgitation, mild tricuspid valve regurgitation, moderate pulmonary hypertension with RVSP 59, 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 Essential (primary) hypertension Hyperlipidemia associated with type 2 diabetes mellitus Hypertension associated with diabetes Iron deficiency anemia Mixed hyperlipidemia Pulmonary hypertension Umbilical hernia Surgical History Surgical History Normal colonoscopy (~2007) S/P insertion of spinal cord stimulator Status post bilateral knee replacements Status post cataract extraction of both eyes with insertion of intraocular lens Family History Family History Father Cerebrovascular accident Mother Hypertension Sibling Hypertension Kidney disease, chronic, end stage on dialysis Social History Social History Social History: Surrogate medical decision maker: Kathy Yanez, spouse. Code status: Full code. Smoking packs per day: 0.5 Smoking cigarettes per day: 10.0 Years smoked: 3 Smoking pack-years: 1.50 Smoking status: Never smoker Tobacco type: cigarettes Second hand tobacco smoke exposure: Yes Smoking end date: 08/04/60 Alcohol intake: never Substance use: current Substance use type: does not use Do You Feel Safe in your Home?: Yes Lack of Transportation: No Lack of Food: Never True Current Housing: I Have Housing Concerned About Future Housing: No Difficulty Paying Gas/Electric Bills: No Difficulty Paying for Meds: No Currently Unemployed: No Education: Bachelor's Degree Difficulty w/ Childcare or Family Care: No Living arrangements: with family Additional living arrangements comments: Lives with spouse of nearly 60 years. They have a son and daughter. 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
[2023-12-18 18:21] LABS: Troponin I 0.067 ng/mL (0.000-0.034)
[2023-12-18 20:10] LABS: Glucose Point of Care 160 mg/dl (65-105)
[2023-12-18] MEDS: carvediloL 6.25 MG TABLET PO (20:28)
[2023-12-18] MEDS: APIXABAN 2.5 MG TABLET PO (20:28)
[2023-12-18] MEDS: GABAPENTIN 300 MG CAPSULE PO (20:28)
[2023-12-18 21:05] LABS: Appearance Urine Clear (Clear); Bilirubin Urine Negative (Negative); Blood Urine Negative (Negative); Color Urine Yellow (Yellow); Glucose Urine UA Negative (Negative); Ketones Urine Negative (Negative); Leukocyte Esterase Ur Negative LEU/UL (Negative); Nitrate Urine Negative (Negative); Protein Urine Negative (Negative); Specific Grav Ur 1.012 (1.001-1.035)
[2023-12-18 21:06] LABS: Add Urine Microscopic? NO
[2023-12-18 21:13] LABS: Creatinine Urine 100.2 mg/dL; Total Protein Urine Random 9 mg/dL; Ur Ttl Prot Creatinine Ratio 0.09 mg/mg (0-0.20)
[2023-12-18 21:24] LABS: Sodium Urine Random 35 meq/L
[2023-12-19] VITALS (34 sets, daily range): BP systolic 95–128; BP diastolic 50–74; PULSE 46–65; RESP 10–18; TEMP 35.9–37; O2SAT 93–100
--- NOTE | 2023-12-19 | ECHO_ITS ---
Patient Info Name: Khalif Yanez Age: 83 years : 1940 Gender: Male Ht: 70 in Wt: 291 lbs BSA: 2.61 m2 HR: 54 bpm BP: 110 / 63 mmHg Heart Rhythm: Atrial Fibrillation, Right Bundle Branch Block Technical Quality: Good Exam Date: 12/19/2023 7:39 AM Exam Location: Echo Lab Patient Status: Inpatient Admit Date: 12/18/2023 Staff Ordering Physician: Mala Rolon APRN Architectural Renderer: Pardeep Gannon RDCS Attending Provider: Darlene Slater MD Referring Physician: Gonzales DACOSTA; Exam Type: CA echo doppler color flow Study Info Indications - volume overload - elevated BNP Complete two-dimensional, color flow and Doppler transthoracic echocardiogram is performed. Summary 1. Left ventricular chamber dimension is normal. 2. Left ventricular systolic function is normal, estimated at 65-70%. 3. There is moderately increased left ventricular wall thickness. 4. Left ventricular septal wall motion is abnormal with septal motion related to bundle branch block. 5. Right ventricular chamber dimension is severely enlarged. 6. Right ventricular systolic function is reduced. 7. Flattening of the septum in diastole and systole consistent with right ventricular volume and pressure overload. 8. Left atrial chamber dimension is severely enlarged. 9. Right atrial chamber dimension is severely enlarged. 10. There is moderate tricuspid valve regurgitation. 11. There is mild to moderate pulmonic regurgitation. 12. Pulmonary hypertension. Estimated pulmonary arterial systolic pressure is 83 mmHg. 13. The aortic root size at the sinus of Valsalva is mildly dilated. 14. Dilated inferior vena cava with <50% collapse upon inspiration consistent with elevated right atrial pressure, 15 mmHg. Left Ventricle Left ventricular chamber dimension is normal. Left ventricular systolic function is normal, estimated at 65-70%. There is moderately increased left ventricular wall thickness. Left ventricular septal wall motion is abnormal with septal motion related to bundle branch block. Right Ventricle Flattening of the septum in diastole and systole consistent with right ventricular volume and pressure overload. Prominent moderate band. Right ventricular chamber dimension is severely enlarged. Right ventricular systolic function is reduced. Left Atria Left atrial chamber dimension is severely enlarged. Right Atria Right atrial chamber dimension is severely enlarged. Atrial Septum Intact interatrial septum visualized by color flow imaging. Aortic Valve The aortic valve is probable trileaflet. There is no aortic valve stenosis. There is no aortic valve regurgitation. There is mild aortic valve calcification. Pulmonic Valve The pulmonic valve is not well visualized. There is mild to moderate pulmonic regurgitation. Mitral Valve There is trace mitral valve regurgitation. Tricuspid Valve There is moderate tricuspid valve regurgitation. Pulmonary hypertension. Estimated pulmonary arterial systolic pressure is 83 mmHg. Pericardium/Pleural There is no pericardial effusion. Inferior Vena Cava Dilated inferior vena cava with <50% collapse upon inspiration consistent with elevated right atrial pressure, 15 mmHg. Aorta The aortic root size at the sinus of Valsalva is mildly dilated. Left Ventricular Outflow Tract Name Value Normal LVOT 2D
[2023-12-19 05:10] LABS: Partial Thromboplastin Time 39.8 Seconds (22.3-36.8); Prothrombin Time 24.4 Seconds (11.1-14.7)
[2023-12-19 05:19] LABS: Alanine Aminotransferase 46 U/L (6-50); Albumin Level 3.1 g/dL (3.5-5.1); Alkaline Phosphatase 222 U/L (38-126); Anion Gap 11 mmol/L (4-12); Aspartate Amino Transferase 46 U/L (17-59); Calcium 7.7 mg/dL (8.4-10.2); Carbon Dioxide 20 mmol/L (22-30); Chloride 109 mmol/L (98-107); Creatine Kinase 152 U/L (55-170); Estimated CRCL calculation 12 ml/min; Estimated Glomerular Filt Rate 11; Glucose 139 mg/dL (65-110); Magnesium 2.2 mg/dL (1.6-2.3); Phosphorus 6.2 mg/dL (2.5-4.5); Potassium 3.9 mmol/L (3.4-5.0); Sodium 140 mmol/L (137-145)
[2023-12-19 05:32] LABS: Blood Urea Nitrogen 141 mg/dL (9-20)
[2023-12-19 05:37] LABS: Basophils Percent Auto 0.6 % (0.2-1.2); Eosinophils Absolute Auto 0.1 K/mm3 (0-0.3); Eosinophils Percent Auto 1.3 % (0-4.4); Hematocrit 30.9 % (42.0-52.0); Hemoglobin 9.8 g/dL (14.0-18.0); Immature Granulocyte Absolute 0.01 K/mm3 (0.00-0.031); Immature Granulocyte Percent A 0.2 % (0-0.5); Lymphocytes Absolute Auto 0.71 K/mm3 (0.9-3.2); Lymphocytes Percent Auto 15.3 % (18.3-44.2); Mean Corpuscular HGB Conc 31.7 g/dl (32-36); Mean Corpuscular Hemoglobin 30.1 pg (26-34); Mean Corpuscular Volume 94.8 fl (80-100); Mean Platelet Volume 13.2 fl (7.4-10.4); Monocytes Absolute Auto 0.6 K/mm3 (0.1-0.6); Monocytes Percent Auto 12.9 % (2.6-8.5); Neutrophils Absolute Auto 3.2 K/mm3 (1.3-6.7); Neutrophils Percent Auto 69.7 % (45.5-73.1); Platelet Count Result 63 k/mm3 (150-375); Red Blood Count 3.26 M/mm3 (4.6-6.20); Red Cell Distribution Width 17.2 % (11.5-14.5); White Blood Count 4.7 K/mm3 (4.5-10.0)
[2023-12-19 07:22] LABS: Anisocytosis 1+; Burr Cells 2+; Ovalocytes 1+; Platelet Estimate Decreased (Adequate); Poikilocytosis 2+
[2023-12-19 07:23] LABS: Schistocytes None Seen
[2023-12-19 08:03] LABS: Hepatitis B Surface Antigen Negative (Negative)
[2023-12-19 08:20] LABS: Hepatitis B Surface Anti Res Negative
[2023-12-19 08:33] LABS: Glucose Point of Care 143 mg/dl (65-105)
[2023-12-19] MEDS: CHOLECALCIFEROL 1,000 UNITS TABLET 2000 UNITS PO (08:35)
[2023-12-19] MEDS: FERROUS SULFATE 325 MG TABLET DR 650 MG PO (08:36)
[2023-12-19] MEDS: allopurinoL 100 MG TABLET PO (08:36)
[2023-12-19] MEDS: CYANOCOBALAMIN 1,000 MCG TABLET 1000 MCG PO (08:36)
[2023-12-19] MEDS: carvediloL 6.25 MG TABLET PO ×2 (08:36→21:33)
[2023-12-19] MEDS: ATORVASTATIN 10 MG TABLET PO (08:36)
[2023-12-19] MEDS: calcitrioL 0.25 MCG CAPSULE PO (08:47)
--- NOTE | 2023-12-19 09:15 | PM.IMPN ---
Progress Note: A&P Assessment and Plan (1) Shortness of breath: Code(s): R06.02 - Shortness of breath Status: Acute (2) Essential (primary) hypertension: Code(s): I10 - Essential (primary) hypertension Status: Chronic (3) Hypertension associated with diabetes: Code(s): E11.59 - Type 2 diabetes mellitus with other circulatory complications; I15.2 - Hypertension secondary to endocrine disorders Status: Chronic (4) Acute on chronic kidney failure: Qualifiers: Acute renal failure type: unspecified Chronic kidney disease stage: stage 4 (severe) Qualified Code(s): N17.9 - Acute kidney failure, unspecified; N18.4 - Chronic kidney disease, stage 4 (severe) Code(s): N17.9 - Acute kidney failure, unspecified; N18.9 - Chronic kidney disease, unspecified Status: Chronic (5) Diabetes mellitus with proteinuria: Code(s): E11.29 - Type 2 diabetes mellitus with other diabetic kidney complication; R80.9 - Proteinuria, unspecified Status: Chronic (6) Congestive heart failure: Qualifiers: Heart failure type: diastolic Heart failure chronicity: acute on chronic Qualified Code(s): I50.33 - Acute on chronic diastolic (congestive) heart failure Code(s): I50.9 - Heart failure, unspecified Status: Chronic (7) Atrial fibrillation: Code(s): I48.91 - Unspecified atrial fibrillation Status: Acute Plan 83-year-old male with a past medical history CKD stage IIIB previously requiring dialysis for approximately 3 months due to diuretic resistance and fluid overload (discontinued 09/29/2023), hypertension, AFib on Eliquis, iron deficiency anemia, pulmonary hypertension, [id number] diabetes mellitus with neuropathy, hyperlipidemia, CHF, BPH, who presents with exertional shortness of breath lower extremity swelling and periorbital edema. Upon further questioning he also reports abdominal and soft tissue swelling of the back. In [facility] he had a elevated serum creatinine again. Admitted on 12/18/2023. December 18: Pending Doppler ultrasound of lower extremities to rule out DVT. Currently NPO awaiting tunneled dialysis catheter placement with General surgery. Anticipating dialysis with Nephrology. He is stable. Breathing well on room air. Anemia chronic disease/iron deficiency anemia: Hemoglobin stable. Continue to monitor. Procrit per Nephrology Atrial fibrillation on Eliquis: Rate controlled. Holding apixaban due to procedural intervention. Restart as appropriate CHF: Currently on room air. He has anasarca more so due to renal failure. Pending echo. Bumex on hold. Heh-kudtmbu-[id number] diabetes mellitus with neuropathy: Blood sugars controlled. Continue Accu-Cheks a.c. HS with sliding scale and hypoglycemia protocol. Continue gabapentin Hypertension: Continue Coreg FEN: NPO for procedure. Saline lock IV. GI prophylaxis: DVT prophylaxis: SCDs if lower extremity Dopplers are negative. Start apixaban as appropriate Lines: Peripheral IV. Pending tunneled dialysis catheter placement. Code Status: DNR. Dispo: Stable in IMU Subjective Date/time seen: 12/19/23 09:16 Interval history: No acute overnight events. His is present at bedside. He reiterates being swollen all over. He reports mild labored breathing. Review of Systems Review of Systems: All systems reviewed & are unremarkable except as noted in HPI and below (Subjective) Exam Const: General: comfortable and no acute distress Other: Anasarca. A&O x3. Eyes: Pupils: Equal, round and reactive pupils present Neck: Neck: supple Resp: Effort & Inspection: normal respiratory effort Auscultation: clear to auscultation bilaterally Cardio: Rate: regular rate Rhythm: abnormal rhythm Heart sounds: no gallops, no murmurs and no rubs GI: GI Palp: Yes Soft to palpation and No Tenderness to palpation present (GI) Extrem: General: edema Objective
--- NOTE | 2023-12-19 09:45 | P.CONNP_ITS ---
Assessment and Plan Assessment and plan (1) LINDSEY (acute kidney injury): Code(s): N17.9 - Acute kidney failure, unspecified Status: Acute Assessment and Plan: * as noted by admission creatinine * complicated by significant azotemia, diuretic resistance, and anasarca * minimal response to IV diuretics as well * patient agreeable to [facility] [employer]EL[facility]/dialysis again given current circumstances * although the hope is that his kidney function will improve, this may not change the fact that he may need to continue [facility]EL[employer]/dialysis indefinitely to maintain his volume status.... (2) Chronic kidney disease, stage IV (severe): Code(s): N18.4 - Chronic kidney disease, stage 4 (severe) Status: Chronic Assessment and Plan: * due to biopsy proven diabetic and hypertensive nephrosclerosis * renal function is further complicated by his fluid status: * lower creatinine due to fluid overload/dilution and higher creatinine due to diuresis to attain relative euvolemia * outpatient evaluation to date demonstrates a normal renal ultrasound, moderate proteinuria, and negative serological studies * His creatinine was running ~ 1.9 - 2.6mg/dl but worsened in July 2023 requiring [facility] [employer] [facility]EL[facility]/dialysis * since discontiuation of dialysis in September 2023, creatinine has been running in the 3.5 - 4.0mg/dl range * however, he continued to have with azotemia due to need for chronic diuretic therapy * as noted by #1, I am worried he needs to continue/stay on dialysis just to maintain his fluid status.... ? (3) Anasarca: Code(s): R60.1 - Generalized edema Status: Acute Assessment and Plan: * as noted by exam on admission * complicated by diuretic resistance * no augmentation in UOP with IV diuretics * plan to initiate [facility]ELOPER/dialysis again for volume control (4) Shortness of breath: Code(s): R06.02 - Shortness of breath Status: Acute Assessment and Plan: * despite symptom, CXR clear * however, elevated BNP and evidence of volume overload * follow symptom once fluid removal initiated with dialysis (5) Anemia: Code(s): D64.9 - Anemia, unspecified Status: Chronic Assessment and Plan: * due to LINDSEY, CKD, and acute illness * Epogen with HD once initiated * follow trend of H/H (6) Essential (primary) hypertension: Code(s): I10 - Essential (primary) hypertension Status: Chronic Assessment and Plan: * reasonable control * in the past, has required midodrine PRN with dialysis due to intradialytic hypotension * follow trend of hemodynamics (7) Diabetes: Code(s): E11.9 - Type 2 diabetes mellitus without complications Status: Chronic Assessment and Plan: * follow accu-cheks * glycemic control per hospitalists Long extensive discussion (greater than 20 minutes) with both the patient as well as his at bedside regarding his severe volume overload and associated anasarca along with shortness of breath despite ongoing medical therapy and what appears to be diuretic resistance once again. Despite IV diuretics initiated in the ER, he has made minimal urine output and he continues to appear quite swollen/edematous. I think we need to restart renal replacement therapy/dialysis more so for control of his volume status although his BUN and creatinine are quite elevated at this time but this may be due to the use of high-dose diuretics without any clinical improvement in his overall fluid status. His current presentation was very similar to his hospital admission in July of 2023 and at t
--- NOTE | 2023-12-19 09:45 | PM.CNNEP ---
Assessment and Plan Assessment and plan (1) LINDSEY (acute kidney injury): Code(s): N17.9 - Acute kidney failure, unspecified Status: Acute Assessment and Plan: as noted by admission creatinine complicated by significant azotemia, diuretic resistance, and anasarca minimal response to IV diuretics as well patient agreeable to DIRECTOR OF REVENUE CYCLE MANAGEMENT/dialysis again given current circumstances although the hope is that his kidney function will improve, this may not change the fact that he may need to continue DIRECTOR OF REVENUE CYCLE MANAGEMENT/dialysis indefinitely to maintain his volume status.... (2) Chronic kidney disease, stage IV (severe): Code(s): N18.4 - Chronic kidney disease, stage 4 (severe) Status: Chronic Assessment and Plan: due to biopsy proven diabetic and hypertensive nephrosclerosis renal function is further complicated by his fluid status: lower creatinine due to fluid overload/dilution and higher creatinine due to diuresis to attain relative euvolemia outpatient evaluation to date demonstrates a normal renal ultrasound, moderate proteinuria, and negative serological studies His creatinine was running ~ 1.9 - 2.6mg/dl but worsened in July 2023 requiring DIRECTOR OF REVENUE CYCLE MANAGEMENT/dialysis since discontiuation of dialysis in September 2023, creatinine has been running in the 3.5 - 4.0mg/dl range however, he continued to have with azotemia due to need for chronic diuretic therapy as noted by #1, I am worried he needs to continue/stay on dialysis just to maintain his fluid status.... ? (3) Anasarca: Code(s): R60.1 - Generalized edema Status: Acute Assessment and Plan: as noted by exam on admission complicated by diuretic resistance no augmentation in UOP with IV diuretics plan to initiate DIRECTOR OF REVENUE CYCLE MANAGEMENT/dialysis again for volume control (4) Shortness of breath: Code(s): R06.02 - Shortness of breath Status: Acute Assessment and Plan: despite symptom, CXR clear however, elevated BNP and evidence of volume overload follow symptom once fluid removal initiated with dialysis (5) Anemia: Code(s): D64.9 - Anemia, unspecified Status: Chronic Assessment and Plan: due to LINDSEY, CKD, and acute illness Epogen with HD once initiated follow trend of H/H (6) Essential (primary) hypertension: Code(s): I10 - Essential (primary) hypertension Status: Chronic Assessment and Plan: reasonable control in the past, has required midodrine PRN with dialysis due to intradialytic hypotension follow trend of hemodynamics (7) Diabetes: Code(s): E11.9 - Type 2 diabetes mellitus without complications Status: Chronic Assessment and Plan: follow accu-cheks glycemic control per hospitalists Long extensive discussion (greater than 20 minutes) with both the patient as well as his at bedside regarding his severe volume overload and associated anasarca along with shortness of breath despite ongoing medical therapy and what appears to be diuretic resistance once again. Despite IV diuretics initiated in the ER, he has made minimal urine output and he continues to appear quite swollen/edematous. I think we need to restart renal replacement therapy/dialysis more so for control of his volume status although his BUN and creatinine are quite elevated at this time but this may be due to the use of high-dose diuretics without any clinical improvement in his overall fluid status. His current presentation was very similar to his hospital admission in July of 2023 and at that time he required initiation of renal replacement therapy / dialysis as well for the same reasons. I voiced my concern to both he and his that there is a strong likelihood that he may recall require dialysis as a ongoing/ longstanding therapy to maintain his fluid status as it would appear that diuretics alone on a unable to do this since after being off dialysis for almost 2 months, he has exactly where he
--- NOTE | 2023-12-19 10:40 | WPDCN ---
Assessment and Plan Assessment and plan (1) Acute on chronic kidney failure: Qualifiers: Acute renal failure type: unspecified Chronic kidney disease stage: stage 4 (severe) Qualified Code(s): N17.9 - Acute kidney failure, unspecified; N18.4 - Chronic kidney disease, stage 4 (severe) Code(s): N17.9 - Acute kidney failure, unspecified; N18.9 - Chronic kidney disease, unspecified Status: Chronic Assessment and Plan: Patient was admitted for acute on chronic renal failure and volume overload. He needs another dialysis catheter placed. His INR is 2 today and he has been taking his Eliquis. I talked to Dr. Johnson and he is okay with my plan to place a temporary non tunneled hemodialysis catheter likely in the groin region so the patient had hemodialysis over the weekend and then attempt placement of another tunnel catheter the left or right internal jugular vein early next week. Risks, benefits, indications, and expected outcomes were discussed in detail with the patient and/or family. They understand and I have answered all other questions. They wished to proceed with surgery as outlined above. HPI Data of Consult Date/Time: 12/19/23 10:40 Requesting Physician: Darlene Slater MD Primary Care Provider: Ramez Ching MD Consult Narrative Reason for consult: Acute volume overload, need for hemodialysis Narrative: Khalif Yanez is a 83 year old male who was well known to our service. Over the past 6 months he has had 2 other tunneled hemodialysis catheter was placed. Last 1 was removed about a month ago as his renal function had recovered. He came in to the hospital yesterday complaining of shortness of breath and whole-body edema. He appears to be in acute on chronic renal failure again and I have been asked to obtain hemodialysis access. His last tube tunnel catheters were placed in the right internal jugular vein. He takes Eliquis for atrial fibrillation and his INR is 2.0 today. Review of Systems Review of Systems: The remainder of the review of systems to include constitutional, HEENT, cardiovascular, respiratory, GI, , integumentary, musculoskeletal, endocrine, immunologic, hematologic, psychiatric, and neurologic are all negative except for which is mentioned above in the HPI. [facility] Past Medical History Medical History Anemia of chronic disease Atrial fibrillation B12 deficiency anemia Benign prostatic hyperplasia Chronic anemia Chronic anticoagulation Chronic kidney disease, stage 3b Congestive heart failure Echocardiogram October 2020: Indeterminate diastolic function, EF 65-70%, mild right ventricular enlargement, mildly increased left ventricular wall thickness, mild left atrial enlargement, mild mitral valve regurgitation, mild tricuspid valve regurgitation, moderate pulmonary hypertension with RVSP 59, 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 Essential (primary) hypertension Hyperlipidemia associated with type 2 diabetes mellitus Hypertension associated with diabetes Iron deficiency anemia Mixed hyperlipidemia Pulmonary hypertension Umbilical hernia Surgical History Surgical History Normal colonoscopy (~2007) S/P insertion of spinal cord stimulator Status post bilateral knee replacements Status post cataract extraction of both eyes with insertion of intraocular lens Family History Family History Father Cerebrovascular accident Mother Hypertension Sibling Hypertension Kidney disease, chronic, end stage on dialysis Social History Social History Social History: Surrogate medical decision maker: Kathykatia Yanez, spouse. Code status: Full code. Smoking packs per day: 0.5 Smoking cigarettes per day: 10
--- NOTE | 2023-12-19 10:46 | WPDHPUPDATE1 ---
History and Physical Update Update Date/Time: 12/19/23 10:46 History and Physical has been reviewed, including an updated exam of the patient. There are NO changes in the patient's condition. Risks, benefits, and alternatives have been discussed and questions answered. Patient agrees to proceed with procedure.
[2023-12-19 12:10] LABS: Glucose Point of Care 134 mg/dl (65-105)
[2023-12-19 13:42] LABS: Glucose Point of Care 122 mg/dl (65-105)
--- NOTE | 2023-12-19 13:52 | WPDANESEPPF ---
Anes - Initial Pre Proc Eval Procedure: Operation Date: 12/19/23 14:30 Proposed Procedures p Femoral Pasquale Catheter Placement - Mani Julian MD Date/Time: 12/19/23 13:52 Surgeon: Darlene Slater MD Pre Op Diagnosis: hansel Patient Data Age: 83 Gender: M Height: 1.78 m Weight: 132 kg Last Vital Signs Temp 97.3 F L 12/19/23 11:52 Pulse 46 L 12/19/23 12:00 Resp 16 12/19/23 11:52 BP 128/67 12/19/23 11:52 Pulse Ox 98 12/19/23 11:52 O2 Del Method Room Air 12/19/23 12:00 Allergies Allergy/AdvReac Type Severity Reaction Status Date / Time No Known Allergies Allergy Verified 12/19/23 13:37 Home Medications Medication Instructions Recorded Confirmed Type blood pressure monitor #1 01/10/20 12/18/23 Rx blood sugar diagnostic (Blood #100 ea 01/10/20 12/18/23 Rx Glucose Test strips) blood-glucose meter #1 01/10/20 12/18/23 Rx lancets #200 ea 01/10/20 12/18/23 Rx pen needle, diabetic 31 gauge x #100 08/23/22 12/18/23 Rx 5/16 (BD Ultra-Fine Short Pen Needle) cholecalciferol (vitamin D3) 50 50 mcg PO DAILY 12/26/22 12/18/23 History mcg (2,000 unit) capsule allopurinol 100 mg tablet 100 mg PO DAILY #90 tabs 01/30/23 12/18/23 Rx atorvastatin 10 mg tablet 10 mg PO DAILY #90 tabs 03/14/23 12/18/23 Rx albuterol sulfate 90 mcg/actuation 2 puff inhalation Q6HRT PRN 04/23/23 12/18/23 Rx aerosol inhaler (Proventil HFA) Shortness Of Breath #6.7 grams apixaban 2.5 mg tablet (Eliquis) 2.5 mg PO Q12HR #180 tabs 07/30/23 12/18/23 Rx tramadol 50 mg tablet 50 mg PO Q8H PRN pain #90 tabs 08/27/23 12/18/23 Rx liraglutide 0.6 mg/0.1 mL (18 mg/3 See Rx Instructions .Route 09/22/23 12/18/23 Rx mL) subcutaneous pen injector .COMPLEX #18 mL (Victoza 2-Vidal) gabapentin 300 mg capsule 300 mg PO QHS #30 caps 09/29/23 12/18/23 Rx bumetanide 1 mg tablet 2 mg PO BID 10/20/23 12/18/23 History cyanocobalamin (vitamin B-12) 1,000 mcg PO DAILY 11/03/23 12/18/23 History 1,000 mcg capsule ferrous sulfate 325 mg (65 mg 650 mg PO EVERY OTHER DAY 11/03/23 12/18/23 History iron) tablet (FeroSul) calcitriol 0.25 mcg capsule 0.25 mcg PO 4XW #48 caps 11/19/23 12/18/23 Rx carvedilol 12.5 mg tablet 6.25 mg PO BID 12/18/23 12/18/23 History Laboratory Tests 12/18/23 12/18/23 12/18/23 14:35 17:44 19:48 WBC RBC Hgb Hct MCV MCH MCHC RDW Plt Count MPV Immature Gran % (Auto) Neut % (Auto) Lymph % (Auto) Braxton % (Auto) Eos % (Auto) Baso % (Auto) Lymph # (Auto) Braxton # (Auto) Eos # (Auto) Baso # (Auto) Abs Immat Gran (auto) Absolute Neuts (auto) Absolute Nucleated RBC Nucleated RBC % Platelet Estimate % Immature Plt Fraction Poikilocytosis Anisocytosis Ovalocytes [place] Cells Schistocytes PT INR APTT Sodium Potassium Chloride Carbon Dioxide Anion Gap BUN Creatinine Estim Creat Clear Calc Estimated GFR Glucose POC Capillary Glucose 160 H mg/dl (65-105) Calcium Phosphorus Magnesium Total Bilirubin AST ALT Alkaline Phosphatase Total Creatine Kinase Troponin I 0.062 H* ng/mL 0.067 H* ng/mL (0.000-0.034) (0.000-0.034) Total Protein Albumin Urine Color Urine Appearance Urine pH Ur Specific [place] Urine Protein Urine Glucose (UA) Urine Ketones
[2023-12-19] MEDS: LACTATED RINGERS 1,000 ML 30 ML IV CONT (15:29)
[2023-12-19 16:35] LABS: Glucose Point of Care 128 mg/dl (65-105)
--- NOTE | 2023-12-19 17:42 | W.PM.PROC2 ---
Procedure Note - Detailed Date of Procedure 12/19/23 Pre-op Diagnosis acute on chronic renal failure and volume overload Post-op Diagnosis Same Procedure Performed Placement of left femoral vein Pasquale non tunneled hemodialysis catheter Surgeon Mani Julian MD Anesthesia General Indications Patient is a 83-year-old gentleman who has been on dialysis 2 other times for acute renal failure but had recovery of renal function. He was recently admitted to the hospital with acute on chronic renal failure again and volume overload. He presents now for placement of a temporary femoral hemodialysis catheter for dialysis through the weekend and then will plan on placing another tunneled hemodialysis catheter in the upper central veins early next week. Findings None significant Description of Procedure After informed consent was obtained patient brought to the operating room was placed supine on operating table or bed general LMA anesthesia was administered. The bilateral groins regions were then cleaned with Hibiclens in a sterile scrub and then the areas were then prepped with Betadine and draped in usual sterile fashion. proceeded to try to access the left common femoral vein. Was able to palpate the left femoral arterial pulse just medial to this pulse I used a long 18gauge spinal needle to cannulate the left femoral vein on the 2nd attempt. There was prompt return of dark venous appearing blood. A guidewire was advanced through the needle into the left femoral vein and then up into the inferior vena cava via the left iliac vein. I then enlarged the insertion site of the guidewire the scalpel and then advanced dilators serially over the guidewire to enlarge the venotomy. Lastly a non tunneled Pasquale hemodialysis catheter with a 3rd pigtail port was advanced over the into the left femoral vein and subsequently up into the inferior vena cava. It was removed leaving the catheter in place. The catheter was advanced to 16cm from the tip at the skin level. I then secured the catheter with 3-0 nylon sutures at the skin. The 3 ports were accessed and they aspirated blood easily and were flushed with heparinized saline solution. A sterile dressing was then applied. The patient tolerated the procedure well no complications. All sponges, needles, and instrument counts were correct at the end procedure. EBL was _25__cc. The patient was awakened and taken to recovery in stable and satisfactory condition. Implants 16cm non tunneled Pasquale hemodialysis catheter with added pigtail port left common femoral vein Estimated Blood Loss 25 Urine Output 75 Drains No Packing No Pathology None sent Complications No immediate complications Condition Stable Disposition PACU [facility] Billing Surgery - Charge Forward: Surgery Billing
[2023-12-19] MEDS: EPOETIN ALFA-EPBX 10,000 UNITS/ML VIAL 10000 UNITS IV PUSH (18:06)
--- NOTE | 2023-12-19 21:06 | PC.NURSE ---
2058 returned to room 200 via bed from dialysis.
[2023-12-19 21:09] LABS: Glucose Point of Care 116 mg/dl (65-105)
[2023-12-19] MEDS: GABAPENTIN 300 MG CAPSULE PO (21:33)
[2023-12-20] VITALS (38 sets, daily range): BP systolic 90–150; BP diastolic 42–94; PULSE 48–98; RESP 18–25; TEMP 36.1–38.3; O2SAT 92–98
[2023-12-20 04:21] LABS: Hemoglobin 9.8 g/dL (14.0-18.0); Mean Corpuscular HGB Conc 31.6 g/dl (32-36); Mean Corpuscular Volume 94.8 fl (80-100); Mean Platelet Volume 13.4 fl (7.4-10.4); Platelet Count Result 62 k/mm3 (150-375); Red Blood Count 3.27 M/mm3 (4.6-6.20); Red Cell Distribution Width 17.2 % (11.5-14.5); White Blood Count 5.6 K/mm3 (4.5-10.0)
[2023-12-20 04:48] LABS: Alanine Aminotransferase 36 U/L (6-50); Alkaline Phosphatase 207 U/L (38-126); Anion Gap 9 mmol/L (4-12); Aspartate Amino Transferase 32 U/L (17-59); Bilirubin,Total 2.9 mg/dL (0.2-1.3); Calcium 7.9 mg/dL (8.4-10.2); Carbon Dioxide 21 mmol/L (22-30); Chloride 107 mmol/L (98-107); Creatine Kinase 91 U/L (55-170); Estimated CRCL calculation 14 ml/min; Estimated Glomerular Filt Rate 13; Glucose 163 mg/dL (65-110); Magnesium 2.1 mg/dL (1.6-2.3); Phosphorus 5.6 mg/dL (2.5-4.5); Potassium 3.7 mmol/L (3.4-5.0); Sodium 137 mmol/L (137-145)
[2023-12-20 04:50] LABS: Blood Urea Nitrogen 122 mg/dL (9-20)
[2023-12-20 08:18] LABS: Glucose Point of Care 190 mg/dl (65-105)
[2023-12-20] MEDS: ALBUMIN HUMAN 25% 12.5 GM/50ML 50 ML IVPB (08:53)
[2023-12-20 09:05] LABS: INR 1.7; Prothrombin Time 20.7 Seconds (11.1-14.7)
--- NOTE | 2023-12-20 11:36 | PM.PNNEP ---
Progress Note: A&P Assessment and Plan (1) LINDSEY (acute kidney injury): Code(s): N17.9 - Acute kidney failure, unspecified Status: Acute Assessment and Plan: as noted by admission creatinine complicated by significant azotemia, diuretic resistance, and anasarca minimal response to IV diuretics as well patient agreeable to DENTAL INTERNSHIP/dialysis again given current circumstances although the hope is that his kidney function will improve, this may not change the fact that he may need to continue DENTAL INTERNSHIP/dialysis indefinitely to maintain his volume status.... HD yesterday and HD today (2) Chronic kidney disease, stage IV (severe): Code(s): N18.4 - Chronic kidney disease, stage 4 (severe) Status: Chronic Assessment and Plan: due to biopsy proven diabetic and hypertensive nephrosclerosis renal function is further complicated by his fluid status: lower creatinine due to fluid overload/dilution and higher creatinine due to diuresis to attain relative euvolemia outpatient evaluation to date demonstrates a normal renal ultrasound, moderate proteinuria, and negative serological studies His creatinine was running ~ 1.9 - 2.6mg/dl but worsened in July 2023 requiring DENTAL INTERNSHIP/dialysis since discontiuation of dialysis in September 2023, creatinine has been running in the 3.5 - 4.0mg/dl range however, he continued to have with azotemia due to need for chronic diuretic therapy as noted by #1, I am worried he needs to continue/stay on dialysis just to maintain his fluid status.... ? (3) Anasarca: Code(s): R60.1 - Generalized edema Status: Acute Assessment and Plan: as noted by exam on admission complicated by diuretic resistance no augmentation in UOP with IV diuretics fluid removal with HD/DUF (4) Shortness of breath: Code(s): R06.02 - Shortness of breath Status: Acute Assessment and Plan: clinically better despite symptom, CXR clear however, elevated BNP and evidence of volume overload continue fluid removal with HD/DUF (5) Anemia: Code(s): D64.9 - Anemia, unspecified Status: Chronic Assessment and Plan: due to LINDSEY, CKD, and acute illness Epogen with HD follow trend of H/H (6) Essential (primary) hypertension: Code(s): I10 - Essential (primary) hypertension Status: Chronic Assessment and Plan: reasonable control in the past, has required midodrine PRN with dialysis due to intradialytic hypotension follow trend of hemodynamics (7) Diabetes: Code(s): E11.9 - Type 2 diabetes mellitus without complications Status: Chronic Assessment and Plan: follow accu-cheks glycemic control per hospitalists Will continue to follow. Subjective Date/time seen: 12/20/23 11:36 Interval history: Follow-up for acute kidney injury/acute renal failure on chronic kidney disease and anasarca/volume overload. S/P temporary right femoral HD catheter placement and short dialysis session yesterday afternoon; tolerating HD treatment at the time of my visit (seen on HD at 11:25AM); breathing ans well as swelling/edema seems to be better/improved; still with minimal urine output; no apparent distress noted currently. Exam Narrative: General: WD/WN male in NAD Heart: normal S1 and S2; IRRR, no rub Lungs: clear anteriorly; few bibasilar crackles noted Abdomen: soft, nontender, nondistended, positive bowel sounds Extremities: no cyanosis or clubbing; 2 - 3+ edema (present in RUE, bilateral LEs in things/calves/kness, upper/lower abdomen, periorbital area) Skin: warm and dry Objective Data Vital Signs Vital Signs: Vital Signs Temp Pulse Resp BP Pulse Ox O2 Del Method O2 Flow Rate 12/20/23 11:30 59 L 108/52 L 12/20/23 11:15 63 121/68 12/20/23 11:00 57 L 150/74 H 12/20/23 10:45 66 128/79 12/20/23 10:30 56 L 124/78 12/20/23 10:15 5
--- NOTE | 2023-12-20 11:36 | P.PNNP_ITS ---
Progress Note: A&P Assessment and Plan (1) LINDSEY (acute kidney injury): Code(s): N17.9 - Acute kidney failure, unspecified Status: Acute Assessment and Plan: * as noted by admission creatinine * complicated by significant azotemia, diuretic resistance, and anasarca * minimal response to IV diuretics as well * patient agreeable to CLINICAL CARE MANAGER/dialysis again given current circumstances * although the hope is that his kidney function will improve, this may not change the fact that he may need to continue CLINICAL CARE MANAGER/dialysis indefinitely to maintain his volume status.... * HD yesterday and HD today (2) Chronic kidney disease, stage IV (severe): Code(s): N18.4 - Chronic kidney disease, stage 4 (severe) Status: Chronic Assessment and Plan: * due to biopsy proven diabetic and hypertensive nephrosclerosis * renal function is further complicated by his fluid status: * lower creatinine due to fluid overload/dilution and higher creatinine due to diuresis to attain relative euvolemia * outpatient evaluation to date demonstrates a normal renal ultrasound, moderate proteinuria, and negative serological studies * His creatinine was running ~ 1.9 - 2.6mg/dl but worsened in July 2023 requiring CLINICAL CARE MANAGER/dialysis * since discontiuation of dialysis in September 2023, creatinine has been running in the 3.5 - 4.0mg/dl range * however, he continued to have with azotemia due to need for chronic diuretic therapy * as noted by #1, I am worried he needs to continue/stay on dialysis just to maintain his fluid status.... ? (3) Anasarca: Code(s): R60.1 - Generalized edema Status: Acute Assessment and Plan: * as noted by exam on admission * complicated by diuretic resistance * no augmentation in UOP with IV diuretics * fluid removal with HD/DUF (4) Shortness of breath: Code(s): R06.02 - Shortness of breath Status: Acute Assessment and Plan: * clinically better * despite symptom, CXR clear * however, elevated BNP and evidence of volume overload * continue fluid removal with HD/DUF (5) Anemia: Code(s): D64.9 - Anemia, unspecified Status: Chronic Assessment and Plan: * due to LINDSEY, CKD, and acute illness * Epogen with HD * follow trend of H/H (6) Essential (primary) hypertension: Code(s): I10 - Essential (primary) hypertension Status: Chronic Assessment and Plan: * reasonable control * in the past, has required midodrine PRN with dialysis due to intradialytic hypotension * follow trend of hemodynamics (7) Diabetes: Code(s): E11.9 - Type 2 diabetes mellitus without complications Status: Chronic Assessment and Plan: * follow accu-cheks * glycemic control per hospitalists Will continue to follow. Subjective Date/time seen: 12/20/23 11:36 Interval history: Follow-up for acute kidney injury/acute renal failure on chronic kidney disease and anasarca/volume overload. S/P temporary right femoral HD catheter placement and short dialysis session yesterday afternoon; tolerating HD treatment at the time of my visit (seen on HD at 11:25AM); breathing ans well as swelling/edema seems to be better/improved; still with minimal urine output; no apparent distress noted currently. Exam Narrative: General: WD/WN male in NAD Heart: normal S1 and S2; IRRR, no rub Lungs: clear anteriorly; few bibasilar crackles noted Abdomen: soft, nontender, nondistended, positive bowel s
[2023-12-20] MEDS: EPOETIN ALFA-EPBX 10,000 UNITS/ML VIAL 10000 UNITS IV PUSH (11:47)
--- NOTE | 2023-12-20 12:03 | WPDPN ---
Progress Note: A&P Assessment and Plan (1) Acute on chronic kidney failure: Qualifiers: Acute renal failure type: unspecified Chronic kidney disease stage: stage 4 (severe) Qualified Code(s): N17.9 - Acute kidney failure, unspecified; N18.4 - Chronic kidney disease, stage 4 (severe) Code(s): N17.9 - Acute kidney failure, unspecified; N18.9 - Chronic kidney disease, unspecified Status: Chronic Assessment and Plan: Continue dialysis through the weekend with the temporary non tunneled Pasquale hemodialysis catheter the left common femoral vein. Will plan on placing a tunneled hemodialysis catheter in the right or left IJ vein Friday or Friday next week. The groin catheter will be removed at that time. Subjective Date/time seen: 12/20/23 12:03 Interval history: Patient seen while the dialysis unit. The left femoral vein hemodialysis catheter seems to be working well enough through the weekend. It is a little positional but works best if the patient is completely supine. Exam Skin: Other: Left groin catheter site without any bleeding. Clean without any evidence of infection. Objective Data Vital Signs Vital Signs: Vital Signs - 24 hr 12/19/23 13:20 12/19/23 15:29 12/19/23 15:40 Temperature 36.3 C L 35.9 C L Pulse Rate 50 L 53 L 56 L Respiratory Rate 16 10 L 10 L Blood Pressure 121/64 95/62 L 114/74 Pulse Oximetry 99 98 100 Oxygen Delivery Room Air Simple Face Mask Simple Face Mask Oxygen Flow Rate 12 12 12/19/23 15:55 12/19/23 16:10 12/19/23 16:25 Temperature 36.1 C L Pulse Rate 48 L 54 L 55 L Respiratory Rate 12 14 12 Blood Pressure 112/60 110/66 105/71 Pulse Oximetry 100 93 93 Oxygen Delivery Simple Face Mask Room Air Room Air Oxygen Flow Rate 12 12/19/23 16:40 12/19/23 16:00 12/19/23 17:18 Temperature Pulse Rate 54 L 56 L Respiratory Rate 12 Blood Pressure 107/60 127/69 Pulse Oximetry 99 Oxygen Delivery Room Air Room Air Oxygen Flow Rate 12/19/23 17:09 12/19/23 17:30 12/19/23 17:45 Temperature 36.3 C L Pulse Rate 55 L 53 L 52 L Respiratory Rate 12 Blood Pressure 101/68 109/66 123/70 Pulse Oximetry 96 Oxygen Delivery Oxygen Flow Rate 12/19/23 18:00 12/19/23 18:30 12/19/23 19:00 Temperature Pulse Rate 50 L 52 L 52 L Respiratory Rate Blood Pressure 119/71 107/64 108/66 Pulse Oximetry Oxygen Delivery Oxygen Flow Rate 12/19/23 19:15 12/19/23 19:30 12/19/23 19:45 Temperature Pulse Rate 64 53 L 55 L Respiratory Rate Blood Pressure 126/73 105/53 L 115/64 Pulse Oximetry Oxygen Delivery Oxygen Flow Rate 12/19/23 20:00 12/19/23 20:15 12/19/23 20:30 Temperature Pulse Rate 54 L 51 L 65 Respiratory Rate Blood Pressure 119/66 105/65 113/67 Pulse Oximetry Oxygen Delivery Oxygen Flow Rate 12/19/23 20:40 12/19/23 18:00 12/19/23 20:34 Temperature 36.4 C L Pulse Rate 52 L 52 L 53 L Respiratory Rate 16 Blood Pressure 111/72 111/72 Pulse Oximetry 98 Oxygen Delivery Oxygen Flow Rate 12/19/23 21:09 12/19/23 21:33 12/19/23 23:52 Temperature 36.1 C L 36.3 C L Pulse Rate 52 L 61 55 L Respiratory Rate 18 16 Blood Pressure 114/69 109/50 L Pulse Oximetry 96 98 Oxygen Delivery Oxygen Flow Rate 12/19/23 21:15 12/20/23 00:00 12/19/23 20:00 Temperature Pulse Rate 53 L Respiratory Rate Blood Pressure Pulse Oximetry Oxygen Delivery Room Air Room Air Oxygen Flow Rate 12/19/23 22:00 12/20/23 00:00 12/20/23 02:00 Temperature Pulse Rate 57 L 55 L 57 L Respiratory Rate Blood Pressure Pulse Oximetry Oxygen Delivery Oxygen Flow Rate 12/20/23 04:00 12/20/23 04:00 12/20/23 04:00 Temperature 36.1 C L Pulse Rate 60 62 Respiratory Rate 20 Blood Pressure 93/50 L Pulse Oximetry 97 Oxygen Delivery Room Air Oxygen Flow Rate 12/20/23 05:53 12/20/23 07:30 12/20/23 08:33
[2023-12-20] MEDS: SODIUM CHLORIDE 0.9% IV 1,000 ML 999 ML IV CONT (13:15)
[2023-12-20 13:59] LABS: Glucose Point of Care 191 mg/dl (65-105)
--- NOTE | 2023-12-20 14:35 | ECG_ITS ---
SEE SCANNED COPY FOR CONFIRMED REPORT MTDD
[2023-12-20 14:54] LABS: Base Excess ABG 1.5 mEq/l (+/-2.0); Fractional Inspired Oxygen 28 %; HCO3 ABG 24.4 mEq/l (22.0-26.0); Oxygen Content ABG 14.1 %vol (16.0-22.0); Oxygen Saturation ABG 91.5 % (95.0-100.0); Oxyhemoglobin 89.2 % THb (90.0-100.0); PCO2 ABG 32.4 mmHg (35.0-45.0); PO2 ABG 55.4 mmHg (80.0-100.0); PO2 FiO2 Ratio Arterial Blood 1.98 %; Total Hemoglobin 11.2 g/dL (12.0-18.0); pH ABG 7.494 (7.350-7.450)
[2023-12-20 14:55] LABS: Device NASAL CANNULA; Modified Allen's Test Pass; Site Drawn RIGHT RADIAL
--- NOTE | 2023-12-20 15:01 | PM.IMPN ---
Progress Note: A&P Assessment and Plan (1) Shortness of breath: Code(s): R06.02 - Shortness of breath Status: Acute (2) Essential (primary) hypertension: Code(s): I10 - Essential (primary) hypertension Status: Chronic (3) Hypertension associated with diabetes: Code(s): E11.59 - Type 2 diabetes mellitus with other circulatory complications; I15.2 - Hypertension secondary to endocrine disorders Status: Chronic (4) Acute on chronic kidney failure: Qualifiers: Acute renal failure type: unspecified Chronic kidney disease stage: stage 4 (severe) Qualified Code(s): N17.9 - Acute kidney failure, unspecified; N18.4 - Chronic kidney disease, stage 4 (severe) Code(s): N17.9 - Acute kidney failure, unspecified; N18.9 - Chronic kidney disease, unspecified Status: Chronic (5) Diabetes mellitus with proteinuria: Code(s): E11.29 - Type 2 diabetes mellitus with other diabetic kidney complication; R80.9 - Proteinuria, unspecified Status: Chronic (6) Congestive heart failure: Qualifiers: Heart failure type: diastolic Heart failure chronicity: acute on chronic Qualified Code(s): I50.33 - Acute on chronic diastolic (congestive) heart failure Code(s): I50.9 - Heart failure, unspecified Status: Chronic (7) Atrial fibrillation: Code(s): I48.91 - Unspecified atrial fibrillation Status: Acute Plan 83-year-old male with a past medical history CKD stage IIIB previously requiring dialysis for approximately 3 months due to diuretic resistance and fluid overload (discontinued 09/29/2023), hypertension, AFib on Eliquis, iron deficiency anemia, pulmonary hypertension, [id number] diabetes mellitus with neuropathy, hyperlipidemia, CHF, BPH, who presents with exertional shortness of breath lower extremity swelling and periorbital edema. Upon further questioning he also reports abdominal and soft tissue swelling of the back. In [facility] he had a elevated serum creatinine again. Admitted on 12/18/2023. December 18: Pending Doppler ultrasound of lower extremities to rule out DVT. Currently NPO awaiting tunneled dialysis catheter placement with General surgery. Anticipating dialysis with Nephrology. He is stable. Breathing well on room air. December 19: Successful left femoral Pasquale catheter placed. Surgery planning to remove that and place a tunneled IJ dialysis catheter on Friday/Friday. His anasarca is only slightly improved. Yesterday post catheter placement he tolerated a short course of dialysis and then a full course this morning. Shortly after he became altered. Fever of 101? F vitals otherwise unremarkable. Blood sugar 109. reports he ate food without issue did not show. She denies he had any cough nausea or vomiting. Denies any prior history of encephalopathy. The patient is currently being sent down to CT without contrast to evaluate for possible stroke. EKG ABG romero labs urine culture blood cultures pending. Will continue assess as the day goes along. Will start empiric antibiotics. Acute encephalopathy: Sudden onset around 2:00 p.m. on 12/19. Workup pending. Anemia chronic disease/iron deficiency anemia: Hemoglobin stable. Continue to monitor. Procrit per Nephrology Thrombocytopenia: Appears to be somewhat chronic. Continue to monitor Atrial fibrillation on Eliquis: Rate controlled. Holding apixaban due to procedural intervention. Restart as appropriate CHF: Currently on room air. He has anasarca more so due to renal failure. Bumex on hold. Updated surface echocardiogram on 12/18 demonstrating EF 65-70%, related to bundle branch block. Moderately increased left ventricular wall thickness. Right ventricular systolic function reduced right ventricular chamber severely enlarged. Biatrial enlargement severe. Moderate tricuspid valve regurgitation. Mild to moderate pulmonic regurgitation. Pulmonary hypertension with PASP
[2023-12-20 15:10] LABS: Basophils Percent Auto 0.4 % (0.2-1.2); Eosinophils Percent Auto 0.3 % (0-4.4); Hematocrit 32.7 % (42.0-52.0); Hemoglobin 10.3 g/dL (14.0-18.0); Immature Granulocyte Absolute 0.07 K/mm3 (0.00-0.031); Immature Platelet Fraction Pct 4.9 % (0.9-11.2); Lymphocytes Absolute Auto 0.36 K/mm3 (0.9-3.2); Mean Corpuscular HGB Conc 31.5 g/dl (32-36); Mean Corpuscular Hemoglobin 30.3 pg (26-34); Mean Corpuscular Volume 96.2 fl (80-100); Mean Platelet Volume 13.1 fl (7.4-10.4); Monocytes Absolute Auto 0.2 K/mm3 (0.1-0.6); Monocytes Percent Auto 3.2 % (2.6-8.5); Neutrophils Absolute Auto 6.4 K/mm3 (1.3-6.7); Neutrophils Percent Auto 90.1 % (45.5-73.1); Red Cell Distribution Width 17.3 % (11.5-14.5); White Blood Count 7.2 K/mm3 (4.5-10.0)
[2023-12-20 15:26] LABS: Platelet Count Result 63 k/mm3 (150-375)
[2023-12-20 15:31] LABS: Anisocytosis 1+; Burr Cells 2+; Hypochromasia 1+; Ovalocytes 1+; Platelet Estimate Decreased (Adequate); Poikilocytosis 2+; Schistocytes None Seen
[2023-12-20 15:33] LABS: Ammonia 29 umol/L (9-30)
[2023-12-20 15:35] LABS: Alanine Aminotransferase 34 U/L (6-50); Albumin Level 3.5 g/dL (3.5-5.1); Alkaline Phosphatase 223 U/L (38-126); Anion Gap 11 mmol/L (4-12); Aspartate Amino Transferase 29 U/L (17-59); Bilirubin,Total 3.3 mg/dL (0.2-1.3); Blood Urea Nitrogen 90 mg/dL (9-20); Calcium 8.1 mg/dL (8.4-10.2); Carbon Dioxide 23 mmol/L (22-30); Chloride 106 mmol/L (98-107); Estimated CRCL calculation 16 ml/min; Estimated Glomerular Filt Rate 16; Glucose 158 mg/dL (65-110); Magnesium 1.9 mg/dL (1.6-2.3); Phosphorus 4.1 mg/dL (2.5-4.5); Potassium 3.8 mmol/L (3.4-5.0); Sodium 140 mmol/L (137-145); Troponin I 0.057 ng/mL (0.000-0.034)
[2023-12-20 16:36] LABS: Appearance Urine Clear (Clear); Bacteria Urine None Seen /hpf; Bilirubin Urine 1+ (Negative); Blood Urine Negative (Negative); Color Urine Dark Yellow (Yellow); Glucose Urine UA Negative (Negative); Ketones Urine Trace mg/dL (Negative); Leukocyte Esterase Ur Trace LEU/UL (Negative); Need Manual Microscopic Reviewed; Nitrate Urine Negative (Negative); Protein Urine Negative (Negative); Specific Grav Ur 1.015 (1.001-1.035); Squamous Epithelial Cell Urine None Seen /hpf (Few); WBC Urine 0-5 /hpf (0-3)
[2023-12-20 16:39] LABS: Add Urine Microscopic? YES
[2023-12-20] MEDS: metroNIDAZOLE 500 MG/ISO 100ML 500 MG/100 ML BAG 100 MG IVPB ×2 (17:04→22:08)
[2023-12-20] MEDS: VANCOMYCIN 2,000 MG/NS 500 ML 2,000 MG/500 ML BAG 250 MG IVPB (17:05)
[2023-12-20 17:17] LABS: Eosinophil Urine None Seen % (None Seen); Urine Eos QC 2nd Tech Confirmed
[2023-12-20 17:26] LABS: Glucose Point of Care 186 mg/dl (65-105)
[2023-12-20] MEDS: CEFEPIME 1 GM/NS 50 ML 1 GM/50 ML BAG IVPB (18:06)
[2023-12-20] MEDS: PHYTONADIONE 5 MG TABLET PO (19:53)
[2023-12-20 23:35] LABS: Glucose Point of Care 217 mg/dl (65-105)
[2023-12-21] VITALS (18 sets, daily range): BP systolic 96–112; BP diastolic 54–65; PULSE 43–60; RESP 16–20; TEMP 36.3–36.8; O2SAT 94–100
[2023-12-21 05:19] LABS: Basophils Percent Auto 0.3 % (0.2-1.2); Eosinophils Percent Auto 0.1 % (0-4.4); Hematocrit 29.2 % (42.0-52.0); Hemoglobin 9.2 g/dL (14.0-18.0); Immature Granulocyte Absolute 0.04 K/mm3 (0.00-0.031); Immature Granulocyte Percent A 0.5 % (0-0.5); Lymphocytes Absolute Auto 0.86 K/mm3 (0.9-3.2); Lymphocytes Percent Auto 11.5 % (18.3-44.2); Mean Corpuscular HGB Conc 31.5 g/dl (32-36); Mean Corpuscular Hemoglobin 30.3 pg (26-34); Mean Corpuscular Volume 96.1 fl (80-100); Mean Platelet Volume 12.2 fl (7.4-10.4); Monocytes Absolute Auto 0.9 K/mm3 (0.1-0.6); Monocytes Percent Auto 12.3 % (2.6-8.5); Neutrophils Absolute Auto 5.6 K/mm3 (1.3-6.7); Neutrophils Percent Auto 75.3 % (45.5-73.1); Platelet Count Result 51 k/mm3 (150-375); Red Blood Count 3.04 M/mm3 (4.6-6.20); Red Cell Distribution Width 17.4 % (11.5-14.5); White Blood Count 7.5 K/mm3 (4.5-10.0)
[2023-12-21 05:25] LABS: INR 1.9; Prothrombin Time 22.9 Seconds (11.1-14.7)
[2023-12-21 05:50] LABS: Burr Cells 1+; Platelet Estimate Decreased (Adequate); Poikilocytosis 2+
[2023-12-21 05:51] LABS: Hypochromasia 1+; Schistocytes Rare
[2023-12-21 06:16] LABS: Vancomycin Trough 11.9 ug/mL (10.0-20.0)
[2023-12-21 06:19] LABS: Alanine Aminotransferase 31 U/L (6-50); Albumin Level 2.9 g/dL (3.5-5.1); Alkaline Phosphatase 229 U/L (38-126); Anion Gap 11 mmol/L (4-12); Aspartate Amino Transferase 35 U/L (17-59); Bilirubin,Total 2.3 mg/dL (0.2-1.3); Blood Urea Nitrogen 94 mg/dL (9-20); Calcium 7.8 mg/dL (8.4-10.2); Carbon Dioxide 22 mmol/L (22-30); Chloride 107 mmol/L (98-107); Estimated CRCL calculation 14 ml/min; Estimated Glomerular Filt Rate 14; Glucose 164 mg/dL (65-110); Phosphorus 4.8 mg/dL (2.5-4.5); Potassium 3.8 mmol/L (3.4-5.0); Sodium 140 mmol/L (137-145)
[2023-12-21] MEDS: metroNIDAZOLE 500 MG/ISO 100ML 500 MG/100 ML BAG 100 MG IVPB ×3 (06:30→22:53)
[2023-12-21 07:59] LABS: Glucose Point of Care 161 mg/dl (65-105)
[2023-12-21] MEDS: VANCOMYCIN 1,250 MG/NS 250 ML 1,250 MG/250 ML BAG 166.67 MG IVPB (09:35)
--- NOTE | 2023-12-21 09:56 | WPDPN ---
Progress Note: A&P Assessment and Plan (1) Acute on chronic kidney failure: Qualifiers: Acute renal failure type: unspecified Chronic kidney disease stage: stage 4 (severe) Qualified Code(s): N17.9 - Acute kidney failure, unspecified; N18.4 - Chronic kidney disease, stage 4 (severe) Code(s): N17.9 - Acute kidney failure, unspecified; N18.9 - Chronic kidney disease, unspecified Status: Chronic Assessment and Plan: Femoral catheter is working well for dialysis at this time. Will try to add patient on the schedule for tomorrow to place a tunneled hemodialysis catheter in the right or left internal jugular vein. If the operative schedule does not accommodate doing that tomorrow then hopefully can place it on Friday. NPO after midnight just in case we can not get it done tomorrow. Continue to hold oral anticoagulation. Subjective Date/time seen: 12/21/23 09:56 Interval history: Patient is doing well today. No complaints. Got hemodialysis yesterday through the left femoral non tunneled catheter. It worked well. Exam Skin: Other: Left groin catheter in place. Site is dry and no bleeding. Objective Data Vital Signs Vital Signs: Vital Signs - 24 hr 12/20/23 10:00 12/20/23 10:15 12/20/23 10:30 Temperature Pulse Rate 59 L 56 L 56 L Respiratory Rate Blood Pressure 111/62 114/66 124/78 Pulse Oximetry Oxygen Delivery Oxygen Flow Rate Fraction of Inspired Oxygen 12/20/23 10:45 12/20/23 11:00 12/20/23 11:15 Temperature Pulse Rate 66 57 L 63 Respiratory Rate Blood Pressure 128/79 150/74 H 121/68 Pulse Oximetry Oxygen Delivery Oxygen Flow Rate Fraction of Inspired Oxygen 12/20/23 12:42 12/20/23 11:30 12/20/23 11:45 Temperature 36.9 C Pulse Rate 61 59 L 62 Respiratory Rate 18 Blood Pressure 92/58 L 108/52 L 97/54 L Pulse Oximetry Oxygen Delivery Oxygen Flow Rate Fraction of Inspired Oxygen 12/20/23 12:00 12/20/23 12:15 12/20/23 12:30 Temperature Pulse Rate 98 48 L 52 L Respiratory Rate Blood Pressure 126/94 H 110/42 L 100/63 Pulse Oximetry Oxygen Delivery Oxygen Flow Rate Fraction of Inspired Oxygen 12/20/23 12:39 12/20/23 12:00 12/20/23 14:00 Temperature 38.3 C H Pulse Rate 56 L 83 Respiratory Rate 25 H Blood Pressure 102/65 104/72 Pulse Oximetry 93 Oxygen Delivery Room Air Oxygen Flow Rate Fraction of Inspired Oxygen 12/20/23 15:21 12/20/23 15:37 12/20/23 15:49 Temperature 38.3 C H 37.9 C H Pulse Rate 70 78 Respiratory Rate 22 H 23 H Blood Pressure 102/49 L 92/43 L 96/48 L Pulse Oximetry 92 95 Oxygen Delivery Nasal Cannula Oxygen Flow Rate 2 Fraction of Inspired Oxygen 12/20/23 16:53 12/20/23 10:00 12/20/23 12:00 Temperature 37.4 C Pulse Rate 58 L 68 Respiratory Rate Blood Pressure Pulse Oximetry Oxygen Delivery Oxygen Flow Rate Fraction of Inspired Oxygen 12/20/23 14:00 12/20/23 16:00 12/20/23 18:00 Temperature Pulse Rate 84 72 65 Respiratory Rate Blood Pressure Pulse Oximetry Oxygen Delivery Oxygen Flow Rate Fraction of Inspired Oxygen 12/20/23 16:00 12/20/23 20:00 12/20/23 20:00 Temperature 36.9 C Pulse Rate 60 Respiratory Rate 24 H Blood Pressure 96/47 L Pulse Oximetry 98 98 Oxygen Delivery Room Air Nasal Cannula Oxygen Flow Rate 2 Fraction of Inspired Oxygen 12/20/23 22:00 12/20/23 20:00 12/20/23 22:00 Temperature Pulse Rate 65 58 L Respiratory Rate Blood Pressure Pulse Oximetry 96 Oxygen Delivery Nasal Cannula Oxygen Flow Rate 1 Fraction of Inspired Oxygen 12/20/23 23:57 12/20/23 23:30 12/20/23 21:50 Temperature 37.6 C Pulse Rate 57 L Respiratory Rate 20 Blood Pressure 108/51 L Pulse Oximetry 96 95 95 Oxygen Delivery Nasal Cannula Nasal Cannula Oxygen Flow Rate 1 1 Fraction of Inspired Oxygen 12/21/23
--- NOTE | 2023-12-21 11:07 | PM.IMPN ---
Progress Note: A&P Assessment and Plan (1) Shortness of breath: Code(s): R06.02 - Shortness of breath Status: Acute (2) Essential (primary) hypertension: Code(s): I10 - Essential (primary) hypertension Status: Chronic (3) Hypertension associated with diabetes: Code(s): E11.59 - Type 2 diabetes mellitus with other circulatory complications; I15.2 - Hypertension secondary to endocrine disorders Status: Chronic (4) Acute on chronic kidney failure: Qualifiers: Acute renal failure type: unspecified Chronic kidney disease stage: stage 4 (severe) Qualified Code(s): N17.9 - Acute kidney failure, unspecified; N18.4 - Chronic kidney disease, stage 4 (severe) Code(s): N17.9 - Acute kidney failure, unspecified; N18.9 - Chronic kidney disease, unspecified Status: Chronic (5) Diabetes mellitus with proteinuria: Code(s): E11.29 - Type 2 diabetes mellitus with other diabetic kidney complication; R80.9 - Proteinuria, unspecified Status: Chronic (6) Congestive heart failure: Qualifiers: Heart failure type: diastolic Heart failure chronicity: acute on chronic Qualified Code(s): I50.33 - Acute on chronic diastolic (congestive) heart failure Code(s): I50.9 - Heart failure, unspecified Status: Chronic (7) Atrial fibrillation: Code(s): I48.91 - Unspecified atrial fibrillation Status: Acute Plan 83-year-old male with a past medical history CKD stage IIIB previously requiring dialysis for approximately 3 months due to diuretic resistance and fluid overload (discontinued 09/29/2023), hypertension, AFib on Eliquis, iron deficiency anemia, pulmonary hypertension, [id number] diabetes mellitus with neuropathy, hyperlipidemia, CHF, BPH, who presents with exertional shortness of breath lower extremity swelling and periorbital edema. Upon further questioning he also reports abdominal and soft tissue swelling of the back. In [facility] he had a elevated serum creatinine again. Admitted on 12/18/2023. LINDSEY on CKD stage 4 -as noted by admission creatinine. -complicated by azotemia diuretic resistance and anasarca minimal response IV diuretics -patient agree to dialysis again and a left femoral Pasquale catheter was placed on 12/18. General surgery planning for tunneled dialysis catheter placement on Friday or Friday. NPO midnight. Continue to hold Eliquis. -dialysis and electrolyte balance management per Nephrology. Anasarca -slowly improving. Continue dialysis Shortness of breath -improved/resolved. Acute encephalopathy -transient over the afternoon of 12/19. Resolved. Associated with fever of 101? F. -unclear source. Pending blood cultures. Continue cefepime and metronidazole and vancomycin and deescalate of blood cultures continue to be negative. Urinalysis not indicative of infection. Head CT unremarkable. Chest CT demonstrating cardiomegaly pulmonary arterial hypertension small bilateral pleural effusions moderate ascites and body wall edema. Discontinue gabapentin and tramadol Anemia chronic disease/iron deficiency anemia: Hemoglobin stable. Continue to monitor. Epogen per Nephrology Thrombocytopenia: Appears to be somewhat chronic. Slowly decreasing. Consider holding apixaban more long-term. Due to uremia? Due to Eliquis? Monitor for bleeding. Okay of General surgery wants to give platelets during/before procedure. Elevated INR: Apixaban is known to elevate the INR. Generally, this does not need to be followed or reacted to. Atrial fibrillation on Eliquis: He is having episodes of slow AF since dialysis has been started. Continue telemetry. Discontinue Coreg and continue to monitor. Apixaban on hold. CHF: Currently on room air. He has anasarca more so due to renal failure. Bumex on hold. Updated surface echocardiogram on 12/18 demonstrating EF 65-70%, left ventricular septal wall motion abnormality with septal mot
[2023-12-21 11:14] LABS: Hepatitis B Core Ab Total NON-REACTIVE (NON-REACTIVE)
--- NOTE | 2023-12-21 11:22 | P.PNNP_ITS ---
Progress Note: A&P Assessment and Plan (1) LINDSEY (acute kidney injury): Code(s): N17.9 - Acute kidney failure, unspecified Status: Acute Assessment and Plan: * as noted by admission creatinine * complicated by significant azotemia, diuretic resistance, and anasarca * minimal response to IV diuretics as well * patient agreeable to NEGATIVE TURNER/dialysis again given current circumstances * although the hope is that his kidney function will improve, this may not change the fact that he may need to continue NEGATIVE TURNER/dialysis indefinitely to maintain his volume status.... * tunneled HD catheter placement tomorrow or Friday per Surgery; temporary HD catheter in place * HD likely tomorrow (2) Chronic kidney disease, stage IV (severe): Code(s): N18.4 - Chronic kidney disease, stage 4 (severe) Status: Chronic Assessment and Plan: * due to biopsy proven diabetic and hypertensive nephrosclerosis * renal function is further complicated by his fluid status: * lower creatinine due to fluid overload/dilution and higher creatinine due to diuresis to attain relative euvolemia * outpatient evaluation to date demonstrates a normal renal ultrasound, moderate proteinuria, and negative serological studies * His creatinine was running ~ 1.9 - 2.6mg/dl but worsened in July 2023 requiring NEGATIVE TURNER/dialysis * since discontiuation of dialysis in September 2023, creatinine has been running in the 3.5 - 4.0mg/dl range * however, he continued to have with azotemia due to need for chronic diuretic therapy * as noted by #1, I am worried he needs to continue/stay on dialysis just to maintain his fluid status.... ? (3) Anasarca: Code(s): R60.1 - Generalized edema Status: Acute Assessment and Plan: * as noted by exam on admission * complicated by diuretic resistance * no augmentation in UOP with IV diuretics * fluid removal with HD/DUF (4) Shortness of breath: Code(s): R06.02 - Shortness of breath Status: Acute Assessment and Plan: * clinically better * despite symptom, CXR clear * however, elevated BNP and evidence of volume overload * continue fluid removal with HD/DUF (5) Anemia: Code(s): D64.9 - Anemia, unspecified Status: Chronic Assessment and Plan: * due to LINDSEY, CKD, and acute illness * Epogen with HD * follow trend of H/H (6) Essential (primary) hypertension: Code(s): I10 - Essential (primary) hypertension Status: Chronic Assessment and Plan: * reasonable control * in the past, has required midodrine PRN with dialysis due to intradialytic hypotension * follow trend of hemodynamics (7) Diabetes: Code(s): E11.9 - Type 2 diabetes mellitus without complications Status: Chronic Assessment and Plan: * follow accu-cheks * glycemic control per hospitalists Will continue to follow. Subjective Date/time seen: 12/21/23 11:22 Interval history: Follow-up for acute kidney injury/acute renal failure on chronic kidney disease and anasarca. Tolerated dialysis treatment yesterday with approximately 3L fluid removal; febrile yesterday afternoon associated with transient altered mental status although the patinet does not recall this and mentation seems back to baseline at the time of my visit; at bedside and we discussed the situation. Exam Narrative: General: WD/WN male in NAD Heart: normal S1 and S2; IRRR, no rub Lungs: clear anteriorly; few biba
--- NOTE | 2023-12-21 11:22 | PM.PNNEP ---
Progress Note: A&P Assessment and Plan (1) LINDSEY (acute kidney injury): Code(s): N17.9 - Acute kidney failure, unspecified Status: Acute Assessment and Plan: as noted by admission creatinine complicated by significant azotemia, diuretic resistance, and anasarca minimal response to IV diuretics as well patient agreeable to TOWER FOREMAN/dialysis again given current circumstances although the hope is that his kidney function will improve, this may not change the fact that he may need to continue TOWER FOREMAN/dialysis indefinitely to maintain his volume status.... tunneled HD catheter placement tomorrow or Friday per Surgery; temporary HD catheter in place HD likely tomorrow (2) Chronic kidney disease, stage IV (severe): Code(s): N18.4 - Chronic kidney disease, stage 4 (severe) Status: Chronic Assessment and Plan: due to biopsy proven diabetic and hypertensive nephrosclerosis renal function is further complicated by his fluid status: lower creatinine due to fluid overload/dilution and higher creatinine due to diuresis to attain relative euvolemia outpatient evaluation to date demonstrates a normal renal ultrasound, moderate proteinuria, and negative serological studies His creatinine was running ~ 1.9 - 2.6mg/dl but worsened in July 2023 requiring TOWER FOREMAN/dialysis since discontiuation of dialysis in September 2023, creatinine has been running in the 3.5 - 4.0mg/dl range however, he continued to have with azotemia due to need for chronic diuretic therapy as noted by #1, I am worried he needs to continue/stay on dialysis just to maintain his fluid status.... ? (3) Anasarca: Code(s): R60.1 - Generalized edema Status: Acute Assessment and Plan: as noted by exam on admission complicated by diuretic resistance no augmentation in UOP with IV diuretics fluid removal with HD/DUF (4) Shortness of breath: Code(s): R06.02 - Shortness of breath Status: Acute Assessment and Plan: clinically better despite symptom, CXR clear however, elevated BNP and evidence of volume overload continue fluid removal with HD/DUF (5) Anemia: Code(s): D64.9 - Anemia, unspecified Status: Chronic Assessment and Plan: due to LINDSEY, CKD, and acute illness Epogen with HD follow trend of H/H (6) Essential (primary) hypertension: Code(s): I10 - Essential (primary) hypertension Status: Chronic Assessment and Plan: reasonable control in the past, has required midodrine PRN with dialysis due to intradialytic hypotension follow trend of hemodynamics (7) Diabetes: Code(s): E11.9 - Type 2 diabetes mellitus without complications Status: Chronic Assessment and Plan: follow accu-cheks glycemic control per hospitalists Will continue to follow. Subjective Date/time seen: 12/21/23 11:22 Interval history: Follow-up for acute kidney injury/acute renal failure on chronic kidney disease and anasarca. Tolerated dialysis treatment yesterday with approximately 3L fluid removal; febrile yesterday afternoon associated with transient altered mental status although the patinet does not recall this and mentation seems back to baseline at the time of my visit; at bedside and we discussed the situation. Exam Narrative: General: WD/WN male in NAD Heart: normal S1 and S2; IRRR, no rub Lungs: clear anteriorly; few bibasilar crackles noted Abdomen: soft, nontender, nondistended, positive bowel sounds Extremities: no cyanosis or clubbing; 2+ edema (present in RUE, bilateral LEs in things/calves/kness, upper/lower abdomen, periorbital area) Skin: warm and intact Objective Data Vital Signs Vital Signs: Vital Signs Temp Pulse Resp BP Pulse Ox O2 Del Method O2 Flow Rate 12/21/23 11:00 97.6 F 55 L 18 96/56 L 99 Room Air 12/21/23 10:00 47 L 12/21/23 08:00 55 L 12/21/23 08:
[2023-12-21] MEDS: PHYTONADIONE ADULT INJ 10 MG in DEXTROSE 5% IN WATER 50 ML 100 MG IVPB (11:53)
[2023-12-21 12:54] LABS: Glucose Point of Care 222 mg/dl (65-105)
[2023-12-21] MEDS: INSULIN ASPART (*BKC) 100 UNITS/ML SUB-Q (12:55)
--- NOTE | 2023-12-21 14:24 | PCSTNOTE ---
Bedside swallowing evaluation completed. Spouse present at bedside. Patient seen sitting upright in bed with head of bed elevated to achieve approximation of 90 degrees at hip. Cursory oral peripheral examination reveals oral mechanism to be within functional limits structurally and functionally. Trials of thin liquid by spoon, pureed consistency by spoon, and solid by hand were given. Patient demonstrated no difficulty with chewing or swallowing, and no signs of aspiration were observed. Based on this evaluation a regular diet with thin liquids is recommended for this patient. No further speech therapy is recommended. Thank you for this referral.
[2023-12-21] MEDS: CHOLECALCIFEROL 1,000 UNITS TABLET 2000 UNITS PO (15:58)
[2023-12-21] MEDS: CYANOCOBALAMIN 1,000 MCG TABLET 1000 MCG PO (15:59)
[2023-12-21] MEDS: FERROUS SULFATE 325 MG TABLET DR 650 MG PO (15:59)
[2023-12-21] MEDS: allopurinoL 100 MG TABLET PO (15:59)
[2023-12-21] MEDS: ATORVASTATIN 10 MG TABLET PO (15:59)
[2023-12-21] MEDS: calcitrioL 0.25 MCG CAPSULE PO (16:01)
[2023-12-21 17:45] LABS: Glucose Point of Care 174 mg/dl (65-105)
[2023-12-21] MEDS: CEFEPIME 1 GM/NS 50 ML 1 GM/50 ML BAG IVPB (17:52)
[2023-12-21 20:35] LABS: Glucose Point of Care 206 mg/dl (65-105)
[2023-12-22] VITALS (30 sets, daily range): BP systolic 96–136; BP diastolic 58–83; PULSE 47–99; RESP 16–20; TEMP 35.9–37; O2SAT 95–100
[2023-12-22 05:57] LABS: Basophils Percent Auto 0.4 % (0.2-1.2); Eosinophils Absolute Auto 0.1 K/mm3 (0-0.3); Eosinophils Percent Auto 1.7 % (0-4.4); Hematocrit 32.5 % (42.0-52.0); Hemoglobin 9.5 g/dL (14.0-18.0); Immature Granulocyte Absolute 0.04 K/mm3 (0.00-0.031); Immature Granulocyte Percent A 0.6 % (0-0.5); Immature Platelet Fraction Pct 5.7 % (0.9-11.2); Lymphocytes Absolute Auto 0.85 K/mm3 (0.9-3.2); Lymphocytes Percent Auto 11.9 % (18.3-44.2); Mean Corpuscular HGB Conc 29.2 g/dl (32-36); Mean Corpuscular Hemoglobin 30.4 pg (26-34); Mean Corpuscular Volume 104.2 fl (80-100); Mean Platelet Volume 13.2 fl (7.4-10.4); Monocytes Percent Auto 13.9 % (2.6-8.5); Neutrophils Absolute Auto 5.1 K/mm3 (1.3-6.7); Neutrophils Percent Auto 71.5 % (45.5-73.1); Platelet Count Result 68 k/mm3 (150-375); Red Blood Count 3.12 M/mm3 (4.6-6.20); Red Cell Distribution Width 17.7 % (11.5-14.5); White Blood Count 7.1 K/mm3 (4.5-10.0)
[2023-12-22 06:05] LABS: INR 1.7; Prothrombin Time 20.7 Seconds (11.1-14.7)
[2023-12-22 06:09] LABS: Alanine Aminotransferase 34 U/L (6-50); Alkaline Phosphatase 309 U/L (38-126); Anion Gap 12 mmol/L (4-12); Aspartate Amino Transferase 52 U/L (17-59); Bilirubin,Total 2.3 mg/dL (0.2-1.3); Blood Urea Nitrogen 103 mg/dL (9-20); Calcium 7.5 mg/dL (8.4-10.2); Carbon Dioxide 17 mmol/L (22-30); Chloride 107 mmol/L (98-107); Estimated CRCL calculation 13 ml/min; Estimated Glomerular Filt Rate 13; Glucose 152 mg/dL (65-110); Magnesium 2.2 mg/dL (1.6-2.3); Phosphorus 5.3 mg/dL (2.5-4.5); Potassium 3.9 mmol/L (3.4-5.0); Sodium 136 mmol/L (137-145)
[2023-12-22 06:24] LABS: Vancomycin Random 16.8 ug/mL (10-20)
[2023-12-22] MEDS: metroNIDAZOLE 500 MG/ISO 100ML 500 MG/100 ML BAG 100 MG IVPB (06:53)
[2023-12-22 06:54] LABS: Burr Cells 1+; Platelet Estimate Decreased (Adequate); Poikilocytosis 1+; Schistocytes None Seen
[2023-12-22 08:13] LABS: Glucose Point of Care 160 mg/dl (65-105)
[2023-12-22] MEDS: allopurinoL 100 MG TABLET PO (09:00)
[2023-12-22] MEDS: CYANOCOBALAMIN 1,000 MCG TABLET 1000 MCG PO (09:00)
[2023-12-22] MEDS: CHOLECALCIFEROL 1,000 UNITS TABLET 2000 UNITS PO (09:00)
[2023-12-22] MEDS: ATORVASTATIN 10 MG TABLET PO (09:00)
[2023-12-22] MEDS: calcitrioL 0.25 MCG CAPSULE PO (09:04)
--- NOTE | 2023-12-22 09:44 | WPDPN ---
Progress Note: A&P Assessment and Plan (1) Acute on chronic kidney failure: Qualifiers: Acute renal failure type: unspecified Chronic kidney disease stage: stage 4 (severe) Qualified Code(s): N17.9 - Acute kidney failure, unspecified; N18.4 - Chronic kidney disease, stage 4 (severe) Code(s): N17.9 - Acute kidney failure, unspecified; N18.9 - Chronic kidney disease, unspecified Status: Chronic Assessment and Plan: Patient still has a well-functioning left femoral non tunneled Pasquale hemodialysis catheter. He can continue dialysis through that today. Unable to get him on operative schedule today and a decent time to do a tunnel catheter today. Will schedule him for noon tomorrow for placement of the catheter. Go ahead given diet today and NPO after midnight again. Subjective Date/time seen: 12/22/23 09:44 Interval history: Patient without acute changes. He is going to get dialysis today. Unable to get him on the surgery schedule for placement of a tunnel catheter today. We will plan on placed catheter tomorrow at noon. Exam Extrem: Other: Left groin catheter in place. No bleeding no redness. Objective Data Vital Signs Vital Signs: Vital Signs - 24 hr 12/21/23 10:00 12/21/23 12:00 12/21/23 12:00 Temperature 36.4 C Pulse Rate 47 L 55 L 43 L Respiratory Rate 18 Blood Pressure 96/56 L Pulse Oximetry 99 Oxygen Delivery Fraction of Inspired Oxygen 12/21/23 12:00 12/21/23 16:00 12/21/23 14:00 Temperature 36.5 C Pulse Rate 50 L 48 L Respiratory Rate 16 Blood Pressure 101/59 L Pulse Oximetry 97 Oxygen Delivery Room Air Fraction of Inspired Oxygen 12/21/23 16:00 12/21/23 16:00 12/21/23 18:00 Temperature Pulse Rate 45 L 52 L Respiratory Rate Blood Pressure Pulse Oximetry Oxygen Delivery Room Air Fraction of Inspired Oxygen 12/21/23 19:50 12/21/23 20:00 12/21/23 20:00 Temperature 36.3 C L Pulse Rate 54 L 48 L 48 L Respiratory Rate 20 20 Blood Pressure 112/65 Pulse Oximetry 100 100 Oxygen Delivery Room Air Fraction of Inspired Oxygen 21 12/21/23 21:47 12/21/23 23:25 12/21/23 23:32 Temperature 36.3 C L Pulse Rate 45 L 50 L 50 L Respiratory Rate 20 Blood Pressure 110/57 L Pulse Oximetry 99 Oxygen Delivery Fraction of Inspired Oxygen 12/21/23 23:32 12/22/23 02:00 12/22/23 04:00 Temperature 36.2 C L Pulse Rate 50 L 48 L 52 L Respiratory Rate 20 16 Blood Pressure 108/60 Pulse Oximetry 99 99 Oxygen Delivery Room Air Fraction of Inspired Oxygen 21 12/22/23 04:00 12/22/23 04:00 12/22/23 05:55 Temperature Pulse Rate 56 L 56 L 52 L Respiratory Rate 16 Blood Pressure Pulse Oximetry 99 Oxygen Delivery Room Air Fraction of Inspired Oxygen 21 12/22/23 07:28 Temperature 36.4 C L Pulse Rate 99 Respiratory Rate 18 Blood Pressure 96/59 L Pulse Oximetry 95 Oxygen Delivery Fraction of Inspired Oxygen Intake/Output Intake/Output: Intake & Output 12/19/23 12/20/23 12/21/23 12/22/23 23:59 23:59 23:59 23:59 Intake Total 830 470 0893 200 Output Total 3329 3350 165 Balance -6354 -7354 1096 200 Meds/Results Medications: Active Medications Generic Name Dose Route Start Last Admin Trade Name Freq PRN Reason Stop Dose Admin Albuterol 2 puff 12/18/23 18:26 Albuterol Sulfate (*Sp) Aerosol 1 Puff INHALATION Q6HRT PRN Shortness Of Breath Allopurinol 100 mg 12/19/23 09:00 12/22/23 09:00 Allopurinol 100 Mg Tablet PO 100 mg DAILY CESAR Administration Apixaban 2.5 mg 12/18/23 21:00 12/18/23 20:28 Apixaban 2.5 Mg Tablet PO 2.5 mg Q12HR CESAR Administration Atorvastatin Calcium 10 mg 12/19/23 09:00 12/22/23 09:00 Atorvastatin 10 Mg Tablet PO 10 mg DAILY CESAR Administration Calcitriol 0.25 mcg 12/19/23 09:00 12/22/23 09:04 Calcitriol 0.25 Mcg Capsule PO 0.25 mcg [id number]@0900 [facility] Admini
[2023-12-22 11:31] LABS: Glucose Point of Care 219 mg/dl (65-105)
--- NOTE | 2023-12-22 11:57 | PM.IMPN ---
Progress Note: A&P Assessment and Plan (1) Shortness of breath: Code(s): R06.02 - Shortness of breath Status: Acute (2) Essential (primary) hypertension: Code(s): I10 - Essential (primary) hypertension Status: Chronic (3) Hypertension associated with diabetes: Code(s): E11.59 - Type 2 diabetes mellitus with other circulatory complications; I15.2 - Hypertension secondary to endocrine disorders Status: Chronic (4) Acute on chronic kidney failure: Qualifiers: Acute renal failure type: unspecified Chronic kidney disease stage: stage 4 (severe) Qualified Code(s): N17.9 - Acute kidney failure, unspecified; N18.4 - Chronic kidney disease, stage 4 (severe) Code(s): N17.9 - Acute kidney failure, unspecified; N18.9 - Chronic kidney disease, unspecified Status: Chronic (5) Diabetes mellitus with proteinuria: Code(s): E11.29 - Type 2 diabetes mellitus with other diabetic kidney complication; R80.9 - Proteinuria, unspecified Status: Chronic (6) Congestive heart failure: Qualifiers: Heart failure type: diastolic Heart failure chronicity: acute on chronic Qualified Code(s): I50.33 - Acute on chronic diastolic (congestive) heart failure Code(s): I50.9 - Heart failure, unspecified Status: Chronic (7) Atrial fibrillation: Code(s): I48.91 - Unspecified atrial fibrillation Status: Acute Plan 83-year-old male with a past medical history CKD stage IIIB previously requiring dialysis for approximately 3 months due to diuretic resistance and fluid overload (discontinued 09/29/2023), hypertension, AFib on Eliquis, iron deficiency anemia, pulmonary hypertension, [id number] diabetes mellitus with neuropathy, hyperlipidemia, CHF, BPH, who presents with exertional shortness of breath lower extremity swelling and periorbital edema. Upon further questioning he also reports abdominal and soft tissue swelling of the back. In [facility] he had a elevated serum creatinine again. Admitted on 12/18/2023. LINDSEY on CKD stage 4 -as noted by admission creatinine. -complicated by azotemia diuretic resistance and anasarca and minimal response IV diuretics -patient agreed to dialysis again and a left femoral Pasquale catheter was placed on 12/18. Surgery planning to remove the Pasquale catheter and placed a tunneled dialysis catheter. However, refer to possible bacteremia problem for further management. -dialysis and electrolyte balance management per Nephrology. Anasarca -slowly improving. Continue dialysis Bacteremia? -patient became altered on 12/19 and blood cultures x2 taken -blood culture 12/19 1 bottle growing Gram-positive cocci in clusters -repeat blood cultures on 12/21 -unclear if the blood cultures positive on 12/19 is a contaminant. For now we will continue cefepime and vancomycin started on 12/19. Repeat blood cultures pending. In the meantime spoke with ID pharmacist Stew and we will institute a vancomycin antibiotic lock therapy. Instructions for nurse to avoid using the Pasquale catheter other than dialysis. If he absolutely has no other access and the Pasquale catheter must be used then provide at least 6 hour dwell time for the antibiotic lock therapy. -would hold off on placing a tunneled dialysis catheter until we know more. If it is a true bacteremia we need to ensure it clears before placing a new access. If it is staph aureus he will need ROBERT and transfer out for ID consultation. Acute encephalopathy -transient over the afternoon of 12/19. Resolved. Associated with fever of 101? F. -unclear source. Unclear if this was due to bacteremia or not, gabapentin/tramadol? Uremia? Cefepime metronidazole and vancomycin started. Metronidazole since discontinued. Antibiotics per bacteremia plan above. -head CT was unremarkable. Urinalysis not indicative of infection. Chest CT demonstrating cardiomegaly pulmonary arterial hypertension small bila
[2023-12-22] MEDS: INSULIN ASPART (*BKC) 100 UNITS/ML SUB-Q (12:40)
[2023-12-22] MEDS: ALBUMIN HUMAN 25% 12.5 GM/50ML 50 ML IVPB ×2 (14:09→16:10)
[2023-12-22] MEDS: SODIUM CHLORIDE 0.9% IV 1,000 ML 999 ML IV CONT (15:24)
[2023-12-22] MEDS: EPOETIN ALFA-EPBX 10,000 UNITS/ML VIAL 10000 UNITS IV PUSH (16:12)
--- NOTE | 2023-12-22 16:37 | PM.PNNEP ---
Progress Note: A&P Assessment and Plan (1) LINDSEY (acute kidney injury): Code(s): N17.9 - Acute kidney failure, unspecified Status: Acute Assessment and Plan: as noted by admission creatinine complicated by significant azotemia, diuretic resistance, and anasarca minimal response to IV diuretics as well restarted on DELIVERY STOCK CLERK/dialysis again given current circumstances although the hope is that his kidney function will improve, this may not change the fact that he may need to continue DELIVERY STOCK CLERK/dialysis indefinitely just to maintain his volume status.... HD today and likely again tomorrow (see #3) (2) Chronic kidney disease, stage IV (severe): Code(s): N18.4 - Chronic kidney disease, stage 4 (severe) Status: Chronic Assessment and Plan: due to biopsy proven diabetic and hypertensive nephrosclerosis renal function is further complicated by his fluid status: lower creatinine due to fluid overload/dilution and higher creatinine due to diuresis to attain relative euvolemia outpatient evaluation to date demonstrates a normal renal ultrasound, moderate proteinuria, and negative serological studies His creatinine was running ~ 1.9 - 2.6mg/dl but worsened in July 2023 requiring DELIVERY STOCK CLERK/dialysis since discontiuation of dialysis in September 2023, creatinine has been running in the 3.5 - 4.0mg/dl range however, he continued to have with azotemia due to need for chronic diuretic therapy as noted by #1, I am worried he needs to continue/stay on dialysis just to maintain his fluid status.... ? (3) Bacteremia: Code(s): R78.81 - Bacteremia Status: Acute Assessment and Plan: noted positive blood culture (one set of of 2 from 12/19) already on antibiotics possible contamination(?) - follow repeat cultures plan HD again tomorrow followed by temporary HD catheter removal will attempt to keep catheter free until cultures are negative/infection cleared plan tunneled HD catheter once bacteremia resolved (4) Anasarca: Code(s): R60.1 - Generalized edema Status: Acute Assessment and Plan: as noted by exam on admission complicated by diuretic resistance no augmentation in UOP with IV diuretics fluid removal with HD/DUF (5) Shortness of breath: Code(s): R06.02 - Shortness of breath Status: Acute Assessment and Plan: clinically better despite symptom, CXR clear however, elevated BNP and evidence of volume overload continue fluid removal with HD/DUF (6) Anemia: Code(s): D64.9 - Anemia, unspecified Status: Chronic Assessment and Plan: due to LINDSEY, CKD, and acute illness Epogen with HD follow trend of H/H (7) Essential (primary) hypertension: Code(s): I10 - Essential (primary) hypertension Status: Chronic Assessment and Plan: reasonable control in the past, has required midodrine PRN with dialysis due to intradialytic hypotension follow trend of hemodynamics (8) Diabetes: Code(s): E11.9 - Type 2 diabetes mellitus without complications Status: Chronic Assessment and Plan: follow accu-cheks glycemic control per hospitalists Case discussed with Dr. Larry. Will continue to follow. Subjective Date/time seen: 12/22/23 16:37 Interval history: Follow-up for acute kidney injury/acute renal failure on chronic kidney disease and anasarca. Tolerating dialysis treatment at the time of my visit (seen on HD at 4:27PM); no apparent distress currently; feels reasonably well; no issues/events overnight or earlier this morning; noted positive blood cultures. Exam Narrative: General: WD/WN male in NAD Heart: normal S1 and S2; IRRR, no rub Lungs: clear anteriorly; decreased at bases Abdomen: soft, nontender, nondistended, positive bowel sounds Extremities: no cyanosis or clubbing; 1 - 2+ edema (present in RUE, bilateral LEs in things/calves/kness,
--- NOTE | 2023-12-22 16:37 | P.PNNP_ITS ---
Progress Note: A&P Assessment and Plan (1) LINDSEY (acute kidney injury): Code(s): N17.9 - Acute kidney failure, unspecified Status: Acute Assessment and Plan: * as noted by admission creatinine * complicated by significant azotemia, diuretic resistance, and anasarca * minimal response to IV diuretics as well * restarted on PATIENT MANAGER/dialysis again given current circumstances * although the hope is that his kidney function will improve, this may not change the fact that he may need to continue PATIENT MANAGER/dialysis indefinitely just to maintain his volume status.... * HD today and likely again tomorrow (see #3) (2) Chronic kidney disease, stage IV (severe): Code(s): N18.4 - Chronic kidney disease, stage 4 (severe) Status: Chronic Assessment and Plan: * due to biopsy proven diabetic and hypertensive nephrosclerosis * renal function is further complicated by his fluid status: * lower creatinine due to fluid overload/dilution and higher creatinine due to diuresis to attain relative euvolemia * outpatient evaluation to date demonstrates a normal renal ultrasound, moderate proteinuria, and negative serological studies * His creatinine was running ~ 1.9 - 2.6mg/dl but worsened in July 2023 requiring PATIENT MANAGER/dialysis * since discontiuation of dialysis in September 2023, creatinine has been running in the 3.5 - 4.0mg/dl range * however, he continued to have with azotemia due to need for chronic diuretic therapy * as noted by #1, I am worried he needs to continue/stay on dialysis just to maintain his fluid status.... ? (3) Bacteremia: Code(s): R78.81 - Bacteremia Status: Acute Assessment and Plan: * noted positive blood culture (one set of of 2 from 12/19) * already on antibiotics * possible contamination(?) - follow repeat cultures * plan HD again tomorrow followed by temporary HD catheter removal * will attempt to keep catheter free until cultures are negative/infection cleared * plan tunneled HD catheter once bacteremia resolved (4) Anasarca: Code(s): R60.1 - Generalized edema Status: Acute Assessment and Plan: * as noted by exam on admission * complicated by diuretic resistance * no augmentation in UOP with IV diuretics * fluid removal with HD/DUF (5) Shortness of breath: Code(s): R06.02 - Shortness of breath Status: Acute Assessment and Plan: * clinically better * despite symptom, CXR clear * however, elevated BNP and evidence of volume overload * continue fluid removal with HD/DUF (6) Anemia: Code(s): D64.9 - Anemia, unspecified Status: Chronic Assessment and Plan: * due to LINDSEY, CKD, and acute illness * Epogen with HD * follow trend of H/H (7) Essential (primary) hypertension: Code(s): I10 - Essential (primary) hypertension Status: Chronic Assessment and Plan: * reasonable control * in the past, has required midodrine PRN with dialysis due to intradialytic hypotension * follow trend of hemodynamics (8) Diabetes: Code(s): E11.9 - Type 2 diabetes mellitus without complications Status: Chronic Assessment and Plan: * follow accu-cheks * glycemic control per hospitalists Case discussed with Dr. Larry. Will continue to follow. Subjective Date/time seen: 12/22/23 16:37 Interval history: Follow-up for acute kidney injury/acute renal failure on chronic kidney disease and anasarca. Tolerating dialysis treatment a
[2023-12-22] MEDS: SENNA/DOCUSATE SODIUM TABLET 1 TAB PO (18:34)
[2023-12-22] MEDS: CEFEPIME 1 GM/NS 50 ML 1 GM/50 ML BAG IVPB (18:35)
[2023-12-22] MEDS: VANCOMYCIN 1,000 MG/NS 250 ML 1,000 MG/250 ML BAG 250 MG IVPB (18:36)
--- NOTE | 2023-12-22 18:52 | PC.NURSE ---
Spoke with David Acosta, Dr. Johnson, dialysis clinical manager and critial career development specialist, eulogio beltrán rn regarding intracatheter vancomycin administration to dialysis line. No plan to administer vancomycin to the line at this time. Decision regarding plan with dialysis line will be made tomorrow.
[2023-12-22 19:02] LABS: Glucose Point of Care 133 mg/dl (65-105)
[2023-12-22 23:25] LABS: Glucose Point of Care 213 mg/dl (65-105)
[2023-12-23] VITALS (26 sets, daily range): BP systolic 118–138; BP diastolic 63–77; PULSE 52–69; RESP 16; TEMP 37–37.6; O2SAT 96–98
--- NOTE | 2023-12-23 04:43 | PC.NURSE ---
This patient, Khalif Yanez, was transferred to [[id number] ] on 12/23/23 at 0443. Personal belongings sent with patient. Report given to [Jeanie lee ]. Appropriate documentation sent with patient.
[2023-12-23 04:55] LABS: Basophils Percent Auto 0.5 % (0.2-1.2); Eosinophils Absolute Auto 0.1 K/mm3 (0-0.3); Eosinophils Percent Auto 1.5 % (0-4.4); Hematocrit 28.7 % (42.0-52.0); Hemoglobin 9.1 g/dL (14.0-18.0); Immature Granulocyte Absolute 0.02 K/mm3 (0.00-0.031); Immature Granulocyte Percent A 0.3 % (0-0.5); Lymphocytes Absolute Auto 0.69 K/mm3 (0.9-3.2); Lymphocytes Percent Auto 10.5 % (18.3-44.2); Mean Corpuscular HGB Conc 31.7 g/dl (32-36); Mean Corpuscular Volume 94.7 fl (80-100); Mean Platelet Volume 13.2 fl (7.4-10.4); Monocytes Absolute Auto 0.9 K/mm3 (0.1-0.6); Monocytes Percent Auto 13.7 % (2.6-8.5); Neutrophils Absolute Auto 4.8 K/mm3 (1.3-6.7); Neutrophils Percent Auto 73.5 % (45.5-73.1); Platelet Count Result 75 k/mm3 (150-375); Red Blood Count 3.03 M/mm3 (4.6-6.20); Red Cell Distribution Width 17.4 % (11.5-14.5); White Blood Count 6.6 K/mm3 (4.5-10.0)
[2023-12-23 05:13] LABS: Alanine Aminotransferase 30 U/L (6-50); Alkaline Phosphatase 262 U/L (38-126); Anion Gap 10 mmol/L (4-12); Aspartate Amino Transferase 36 U/L (17-59); Bilirubin,Total 2.1 mg/dL (0.2-1.3); Blood Urea Nitrogen 77 mg/dL (9-20); Calcium 7.8 mg/dL (8.4-10.2); Carbon Dioxide 23 mmol/L (22-30); Chloride 104 mmol/L (98-107); Estimated CRCL calculation 15 ml/min; Estimated Glomerular Filt Rate 15; Glucose 157 mg/dL (65-110); Magnesium 1.9 mg/dL (1.6-2.3); Potassium 3.5 mmol/L (3.4-5.0); Sodium 137 mmol/L (137-145)
[2023-12-23 05:37] LABS: Anisocytosis 1+; Burr Cells 1+; Hypochromasia 1+; Ovalocytes 1+; Platelet Estimate Decreased (Adequate)
[2023-12-23 05:38] LABS: Schistocytes Rare
[2023-12-23 05:58] LABS: Vancomycin Random 14.3 ug/mL (10-20)
[2023-12-23] MEDS: SODIUM CHLORIDE 0.9% IV 1,000 ML 999 ML IV CONT (06:45)
[2023-12-23] MEDS: ALBUMIN HUMAN 25% 12.5 GM/50ML 50 ML IVPB (07:38)
--- NOTE | 2023-12-23 09:12 | PM.IMPN ---
Progress Note: A&P Assessment and Plan (1) Shortness of breath: Code(s): R06.02 - Shortness of breath Status: Acute (2) Essential (primary) hypertension: Code(s): I10 - Essential (primary) hypertension Status: Chronic (3) Hypertension associated with diabetes: Code(s): E11.59 - Type 2 diabetes mellitus with other circulatory complications; I15.2 - Hypertension secondary to endocrine disorders Status: Chronic (4) Acute on chronic kidney failure: Qualifiers: Acute renal failure type: unspecified Chronic kidney disease stage: stage 4 (severe) Qualified Code(s): N17.9 - Acute kidney failure, unspecified; N18.4 - Chronic kidney disease, stage 4 (severe) Code(s): N17.9 - Acute kidney failure, unspecified; N18.9 - Chronic kidney disease, unspecified Status: Chronic (5) Diabetes mellitus with proteinuria: Code(s): E11.29 - Type 2 diabetes mellitus with other diabetic kidney complication; R80.9 - Proteinuria, unspecified Status: Chronic (6) Congestive heart failure: Qualifiers: Heart failure type: diastolic Heart failure chronicity: acute on chronic Qualified Code(s): I50.33 - Acute on chronic diastolic (congestive) heart failure Code(s): I50.9 - Heart failure, unspecified Status: Chronic (7) Atrial fibrillation: Code(s): I48.91 - Unspecified atrial fibrillation Status: Acute Plan 83-year-old male with a past medical history CKD stage IIIB previously requiring dialysis for approximately 3 months due to diuretic resistance and fluid overload (discontinued 09/29/2023), hypertension, AFib on Eliquis, iron deficiency anemia, pulmonary hypertension, [id number] diabetes mellitus with neuropathy, hyperlipidemia, CHF, BPH, who presents with exertional shortness of breath lower extremity swelling and periorbital edema. Upon further questioning he also reports abdominal and soft tissue swelling of the back. In [facility] he had a elevated serum creatinine again. Admitted on 12/18/2023. LINDSEY on CKD stage 4 -as noted by admission creatinine. -complicated by azotemia diuretic resistance and anasarca and minimal response IV diuretics -patient agreed to dialysis again and a left femoral Pasquale catheter was placed on 12/18. -on 12/22 currently receiving an additional session of dialysis. Plan to remove femoral Pasquale catheter today with General surgery. Will hold off on placing tunneled dialysis catheter due to bacteremia/blood culture contamination. -dialysis and electrolyte balance management per Nephrology. Anasarca -slowly improving. Continue dialysis Bacteremia? -patient became altered on 12/19 and blood cultures x2 taken. Cefepime metronidazole and vancomycin started. Metronidazole discontinued on 12/21. -blood culture 12/19 1 bottle growing Gram-positive cocci in clusters -repeat blood cultures on 12/21 -unclear if the blood cultures positive on 12/19 is a contaminant. Thus far, appears to be contamination. Continue to follow-up these blood cultures and the repeat on 12/21. Plan is to remove femoral dialysis catheter today on 12/22. We will hold off on placing a tunneled dialysis catheter to ensure his blood cultures are negative. Consider ID consultation if he has true bacteremia, especially in the setting of Staph aureus at which point a ROBERT should be considered as well. Acute encephalopathy -transient over the afternoon of 12/19. Resolved. Associated with fever of 101? F. -unclear source. Unclear if this was due to bacteremia or not, gabapentin/tramadol? Uremia? -gabapentin and tramadol are being held. -head CT was unremarkable. Urinalysis not indicative of infection. Chest CT demonstrating cardiomegaly pulmonary arterial hypertension small bilateral pleural effusions moderate ascites and body wall edema. Discontinued gabapentin and tramadol Anemia chronic disease/iron deficiency anemia: Hemoglobin stable. Continue to
[2023-12-23] MEDS: EPOETIN ALFA-EPBX 10,000 UNITS/ML VIAL 10000 UNITS IV PUSH (09:25)
--- NOTE | 2023-12-23 09:26 | P.PNNP_ITS ---
Progress Note: A&P Assessment and Plan (1) LINDSEY (acute kidney injury): Code(s): N17.9 - Acute kidney failure, unspecified Status: Acute Assessment and Plan: * as noted by admission creatinine * complicated by significant azotemia, diuretic resistance, and anasarca * minimal response to IV diuretics as well * restarted on BLANKET WINDER HELPER/dialysis again given current circumstances * although the hope is that his kidney function will improve, this may not change the fact that he may need to continue BLANKET WINDER HELPER/dialysis indefinitely just to maintain his fluid/volume status given his propensity with regard to fluid retention resistant to diuretic therapy.... * HD today (see #3) (2) Chronic kidney disease, stage IV (severe): Code(s): N18.4 - Chronic kidney disease, stage 4 (severe) Status: Chronic Assessment and Plan: * due to biopsy proven diabetic and hypertensive nephrosclerosis * renal function is further complicated by his fluid status: * lower creatinine due to fluid overload/dilution and higher creatinine due to diuresis to attain relative euvolemia * outpatient evaluation to date demonstrates a normal renal ultrasound, moderate proteinuria, and negative serological studies * His creatinine was running ~ 1.9 - 2.6mg/dl but worsened in July 2023 requiring BLANKET WINDER HELPER/dialysis * since discontiuation of dialysis in September 2023, creatinine has been running in the 3.5 - 4.0mg/dl range * however, he continued to have with azotemia due to need for chronic diuretic therapy * as noted by #1, I am worried he needs to continue/stay on dialysis just to maintain his fluid status.... ? (3) Bacteremia: Code(s): R78.81 - Bacteremia Status: Acute Assessment and Plan: * noted positive blood culture (one set of of 2 from 12/19) * organism noted: Micrococcus luteus * already on antibiotics * possible contamination(?) - follow repeat cultures * HD today followed by temporary HD catheter removal * will attempt to keep catheter free until cultures are negative/infection cleared * plan tunneled HD catheter once bacteremia resolved (4) Anasarca: Code(s): R60.1 - Generalized edema Status: Acute Assessment and Plan: * as noted by exam on admission * complicated by diuretic resistance * no augmentation in UOP with IV diuretics * fluid removal with HD/DUF - almost 5L negative since admission (5) Shortness of breath: Code(s): R06.02 - Shortness of breath Status: Acute Assessment and Plan: * clinically better * despite symptom, CXR clear * however, elevated BNP and evidence of volume overload * continue fluid removal with HD/DUF (6) Anemia: Code(s): D64.9 - Anemia, unspecified Status: Chronic Assessment and Plan: * due to LINDSEY, CKD, and acute illness * Epogen with HD * follow trend of H/H (7) Essential (primary) hypertension: Code(s): I10 - Essential (primary) hypertension Status: Chronic Assessment and Plan: * reasonable control * in the past, has required midodrine PRN with dialysis due to intradialytic hypotension * follow trend of hemodynamics (8) Diabetes: Code(s): E11.9 - Type 2 diabetes mellitus without complications Status: Chronic Assessment and Plan: * follow accu-cheks * glycemic control per hospitalists Case discussed with Dr. Larry. Will continue to follow. Subjective Date/time seen: 12/23/23 09:26 Interval history: Foll
--- NOTE | 2023-12-23 09:26 | PM.PNNEP ---
Progress Note: A&P Assessment and Plan (1) LINDSEY (acute kidney injury): Code(s): N17.9 - Acute kidney failure, unspecified Status: Acute Assessment and Plan: as noted by admission creatinine complicated by significant azotemia, diuretic resistance, and anasarca minimal response to IV diuretics as well restarted on CATALOG LIBRARIAN/dialysis again given current circumstances although the hope is that his kidney function will improve, this may not change the fact that he may need to continue CATALOG LIBRARIAN/dialysis indefinitely just to maintain his fluid/volume status given his propensity with regard to fluid retention resistant to diuretic therapy.... HD today (see #3) (2) Chronic kidney disease, stage IV (severe): Code(s): N18.4 - Chronic kidney disease, stage 4 (severe) Status: Chronic Assessment and Plan: due to biopsy proven diabetic and hypertensive nephrosclerosis renal function is further complicated by his fluid status: lower creatinine due to fluid overload/dilution and higher creatinine due to diuresis to attain relative euvolemia outpatient evaluation to date demonstrates a normal renal ultrasound, moderate proteinuria, and negative serological studies His creatinine was running ~ 1.9 - 2.6mg/dl but worsened in July 2023 requiring CATALOG LIBRARIAN/dialysis since discontiuation of dialysis in September 2023, creatinine has been running in the 3.5 - 4.0mg/dl range however, he continued to have with azotemia due to need for chronic diuretic therapy as noted by #1, I am worried he needs to continue/stay on dialysis just to maintain his fluid status.... ? (3) Bacteremia: Code(s): R78.81 - Bacteremia Status: Acute Assessment and Plan: noted positive blood culture (one set of of 2 from 12/19) organism noted: Micrococcus luteus already on antibiotics possible contamination(?) - follow repeat cultures HD today followed by temporary HD catheter removal will attempt to keep catheter free until cultures are negative/infection cleared plan tunneled HD catheter once bacteremia resolved (4) Anasarca: Code(s): R60.1 - Generalized edema Status: Acute Assessment and Plan: as noted by exam on admission complicated by diuretic resistance no augmentation in UOP with IV diuretics fluid removal with HD/DUF - almost 5L negative since admission (5) Shortness of breath: Code(s): R06.02 - Shortness of breath Status: Acute Assessment and Plan: clinically better despite symptom, CXR clear however, elevated BNP and evidence of volume overload continue fluid removal with HD/DUF (6) Anemia: Code(s): D64.9 - Anemia, unspecified Status: Chronic Assessment and Plan: due to LINDSEY, CKD, and acute illness Epogen with HD follow trend of H/H (7) Essential (primary) hypertension: Code(s): I10 - Essential (primary) hypertension Status: Chronic Assessment and Plan: reasonable control in the past, has required midodrine PRN with dialysis due to intradialytic hypotension follow trend of hemodynamics (8) Diabetes: Code(s): E11.9 - Type 2 diabetes mellitus without complications Status: Chronic Assessment and Plan: follow accu-cheks glycemic control per hospitalists Case discussed with Dr. Larry. Will continue to follow. Subjective Date/time seen: 12/23/23 09:26 Interval history: Follow-up for acute kidney injury/acute renal failure on chronic kidney disease and anasarca. Tolerating dialysis treatment at the time of my visit (seen on HD at 9:15AM); discussed with patient plan to remove temporary HD catheter after his current HD treatment is complete and follow repeat cultures prior to placing tunneled HD catheter; swelling/edema as well as respiratory status doing better; tolerated dialysis treatment yesterday as well. Exam Narrative: General: WD/WN kayla
[2023-12-23 11:52] LABS: Glucose Point of Care 120 mg/dl (65-105)
[2023-12-23] MEDS: CHOLECALCIFEROL 1,000 UNITS TABLET 2000 UNITS PO (12:13)
[2023-12-23] MEDS: CYANOCOBALAMIN 1,000 MCG TABLET 1000 MCG PO (12:13)
[2023-12-23] MEDS: ATORVASTATIN 10 MG TABLET PO (12:13)
[2023-12-23] MEDS: SENNA/DOCUSATE SODIUM TABLET 1 TAB PO ×2 (12:13→17:34)
[2023-12-23] MEDS: allopurinoL 100 MG TABLET PO (12:14)
[2023-12-23] MEDS: FERROUS SULFATE 325 MG TABLET DR 650 MG PO (12:14)
--- NOTE | 2023-12-23 16:18 | PM.PNGS ---
Progress Note: A&P Assessment and Plan (1) Acute on chronic kidney failure: Qualifiers: Acute renal failure type: unspecified Chronic kidney disease stage: stage 4 (severe) Qualified Code(s): N17.9 - Acute kidney failure, unspecified; N18.4 - Chronic kidney disease, stage 4 (severe) Code(s): N17.9 - Acute kidney failure, unspecified; N18.9 - Chronic kidney disease, unspecified Status: Chronic Assessment and Plan: Left femoral temporary dialysis catheter functioning well. He had hemodialysis today. Blood cx 12/19 growing micrococcus luteus. We need to remove his femoral line and continue IV antibiotics for the bacteremia. Discussed the case with Nephrology and we will plan to add him onto the schedule for a tunneled hemodialysis catheter on towards the end of the week. Current repeat blood cx NGTD from 12/21. Plan I have discussed the patient's case and plan of care with Dr. Julian. Subjective Subjective Date/Time Seen: 12/23/23 16:18 Patient reports: no new complaints and afebrile Interval history: Chart reviewed. No specific complaints. Patient had dialysis today and was successful. I spoke with Dr. Johnson who is aware and okay with removing the left femoral temporary dialysis catheter today. Exam Const: General: comfortable and no acute distress Orientation/consciousness: patient oriented x3 GI: Other: Left groin dialysis catheter dressing removed, sutures removed, and catheter was pulled. Manual pressure was applied for 10 minutes and hemostasis achieved. Shortly after leaving his room, his came out and reported him bleeding at the groin site and I assessed the patient and he was bleeding. Manual pressure held for another 20 minutes and hemostasis achieved. Occlusive dressing applied. Left groin site has been reassessed again 30 minutes later and is stable. Objective Data Vital Signs Vital Signs: Vital Signs - 24 hr 12/22/23 16:30 12/22/23 17:30 12/22/23 18:04 Temperature 97.3 F L Pulse Rate 54 L 53 L 53 L Respiratory Rate 16 Blood Pressure 124/74 128/65 136/65 Pulse Oximetry 99 Oxygen Delivery 12/22/23 16:45 12/22/23 17:00 12/22/23 17:15 Temperature Pulse Rate 60 54 L 57 L Respiratory Rate Blood Pressure 131/73 124/69 123/61 Pulse Oximetry Oxygen Delivery 12/22/23 17:40 12/22/23 18:25 12/22/23 20:34 Temperature 98 F 97.6 F Pulse Rate 54 L 58 L 58 L Respiratory Rate 20 20 Blood Pressure 122/62 129/73 115/65 Pulse Oximetry 95 100 Oxygen Delivery 12/22/23 20:00 12/22/23 20:00 12/22/23 23:25 Temperature 98.0 F Pulse Rate 58 L 58 L 61 Respiratory Rate 20 20 Blood Pressure 125/58 L Pulse Oximetry 100 100 Oxygen Delivery Room Air 12/23/23 00:00 12/23/23 04:00 12/23/23 07:38 Temperature Pulse Rate 55 L 52 L 57 L Respiratory Rate Blood Pressure 119/63 Pulse Oximetry Oxygen Delivery 12/23/23 07:25 12/23/23 08:00 12/23/23 08:15 Temperature 98.6 F Pulse Rate 62 55 L 60 Respiratory Rate 16 Blood Pressure 118/66 136/72 133/65 Pulse Oximetry 96 Oxygen Delivery 12/23/23 08:30 12/23/23 08:45 12/23/23 09:00 Temperature Pulse Rate 56 L 64 53 L Respiratory Rate Blood Pressure 136/66 123/73 127/68 Pulse Oximetry Oxygen Delivery 12/23/23 09:15 12/23/23 09:30 12/23/23 07:45 Temperature Pulse Rate 58 L 55 L 57 L Respiratory Rate Blood Pressure 132/71 126/69 122/70 Pulse Oximetry Oxygen Delivery 12/23/23 09:48 12/23/23 10:00 12/23/23 10:15 Temperature Pulse Rate 55 L 57 L 56 L Respiratory Rate Blood Pressure 124/65 130/68 130/71 Pulse Oximetry Oxygen Delivery 12/23/23 10:30 12/23/23 10:45 12/23/23 11:00 Temperature Pulse Rate 60 53 L 57 L Respiratory Rate Blood Pressure 125/72 130/75 133/70 Pulse Oximetry Oxygen Delivery 12/23/23 11:11 12/23/23 11:20 12/23/23 08:00 Temperature 98.6 F Pulse Rate 52 L 59 L 59 L Re
[2023-12-23] MEDS: CEFEPIME 1 GM/NS 50 ML 1 GM/50 ML BAG IVPB (17:34)
[2023-12-23 19:52] LABS: Glucose Point of Care 254 mg/dl (65-105)
[2023-12-24] VITALS (7 sets, daily range): BP systolic 106–110; BP diastolic 56; PULSE 55–61; RESP 17–22; TEMP 36.8–37.1; O2SAT 97–99
[2023-12-24 08:01] LABS: Glucose Point of Care 203 mg/dl (65-105)
[2023-12-24] MEDS: allopurinoL 100 MG TABLET PO (08:25)
[2023-12-24] MEDS: ATORVASTATIN 10 MG TABLET PO (08:25)
[2023-12-24] MEDS: CHOLECALCIFEROL 1,000 UNITS TABLET 2000 UNITS PO (08:25)
[2023-12-24] MEDS: SENNA/DOCUSATE SODIUM TABLET 1 TAB PO (08:25)
[2023-12-24] MEDS: CYANOCOBALAMIN 1,000 MCG TABLET 1000 MCG PO (08:25)
[2023-12-24] MEDS: INSULIN ASPART (*BKC) 100 UNITS/ML SUB-Q ×2 (08:27→12:20)
[2023-12-24] MEDS: calcitrioL 0.25 MCG CAPSULE PO (08:27)
[2023-12-24 11:53] LABS: Glucose Point of Care 218 mg/dl (65-105)
--- NOTE | 2023-12-24 13:11 | PM.PNNEP ---
Progress Note: A&P Assessment and Plan (1) LINDSEY (acute kidney injury): Code(s): N17.9 - Acute kidney failure, unspecified Status: Acute Assessment and Plan: as noted by admission creatinine complicated by significant azotemia, diuretic resistance, and anasarca minimal response to IV diuretics as well restarted on RN UNIT MANAGER/dialysis again given current circumstances although the hope is that his kidney function will improve, this may not change the fact that he may need to continue RN UNIT MANAGER/dialysis indefinitely just to maintain his fluid/volume status given his propensity with regard to fluid retention resistant to diuretic therapy.... resume HD once tunneled HD catheter in place (2) Chronic kidney disease, stage IV (severe): Code(s): N18.4 - Chronic kidney disease, stage 4 (severe) Status: Chronic Assessment and Plan: due to biopsy proven diabetic and hypertensive nephrosclerosis renal function is further complicated by his fluid status: lower creatinine due to fluid overload/dilution and higher creatinine due to diuresis to attain relative euvolemia outpatient evaluation to date demonstrates a normal renal ultrasound, moderate proteinuria, and negative serological studies His creatinine was running ~ 1.9 - 2.6mg/dl but worsened in July 2023 requiring RN UNIT MANAGER/dialysis since discontinuation of dialysis in September 2023, creatinine has been running in the 3.5 - 4.0mg/dl range however, he continued to have azotemia due to need for chronic diuretic therapy as noted by #1, I am worried he needs to continue/stay on dialysis just to maintain his fluid status.... ? (3) Bacteremia: Code(s): R78.81 - Bacteremia Status: Acute Assessment and Plan: noted positive blood culture (one set of of 2 from 12/19) organism noted: Micrococcus luteus already on antibiotics possible contamination(?) - follow repeat cultures will attempt to keep catheter free until cultures are negative/infection cleared plan tunneled HD catheter once bacteremia resolved - possibly tomorrow (4) Anasarca: Code(s): R60.1 - Generalized edema Status: Acute Assessment and Plan: as noted by exam on admission complicated by diuretic resistance no augmentation in UOP with IV diuretics fluid removal with HD/DUF - almost 5L negative since admission (5) Shortness of breath: Code(s): R06.02 - Shortness of breath Status: Acute Assessment and Plan: clinically better despite symptom, CXR clear however, elevated BNP and evidence of volume overload continue fluid removal with HD/DUF (6) Anemia: Code(s): D64.9 - Anemia, unspecified Status: Chronic Assessment and Plan: due to LINDSEY, CKD, and acute illness Epogen with HD follow trend of H/H (7) Essential (primary) hypertension: Code(s): I10 - Essential (primary) hypertension Status: Chronic Assessment and Plan: reasonable control in the past, has required midodrine PRN with dialysis due to intradialytic hypotension follow trend of hemodynamics (8) Diabetes: Code(s): E11.9 - Type 2 diabetes mellitus without complications Status: Chronic Assessment and Plan: follow accu-cheks glycemic control per hospitalists Will continue to follow. Subjective Date/time seen: 12/24/23 13:11 Interval history: Follow-up for acute kidney injury/acute renal failure on chronic kidney disease and anasarca. Tolerated dialysis treatment yesterday without any issues or problems -- temporary HD catheter has since been removed; swelling/edema still present but seems to be doing better in general; no apparent distress noted at the time of my visit. Exam Narrative: General: WD/WN male in NAD Heart: normal S1 and S2; IRRR, no rub Lungs: clear anteriorly; decreased at bases Abdomen: soft, nontender, nondistended, positive bowel sounds Extre
--- NOTE | 2023-12-24 13:11 | P.PNNP_ITS ---
Progress Note: A&P Assessment and Plan (1) LINDSEY (acute kidney injury): Code(s): N17.9 - Acute kidney failure, unspecified Status: Acute Assessment and Plan: * as noted by admission creatinine * complicated by significant azotemia, diuretic resistance, and anasarca * minimal response to IV diuretics as well * restarted on BLACK PICKLER/dialysis again given current circumstances * although the hope is that his kidney function will improve, this may not change the fact that he may need to continue BLACK PICKLER/dialysis indefinitely just to maintain his fluid/volume status given his propensity with regard to fluid retention resistant to diuretic therapy.... * resume HD once tunneled HD catheter in place (2) Chronic kidney disease, stage IV (severe): Code(s): N18.4 - Chronic kidney disease, stage 4 (severe) Status: Chronic Assessment and Plan: * due to biopsy proven diabetic and hypertensive nephrosclerosis * renal function is further complicated by his fluid status: * lower creatinine due to fluid overload/dilution and higher creatinine due to diuresis to attain relative euvolemia * outpatient evaluation to date demonstrates a normal renal ultrasound, moderate proteinuria, and negative serological studies * His creatinine was running ~ 1.9 - 2.6mg/dl but worsened in July 2023 requiring BLACK PICKLER/dialysis * since discontinuation of dialysis in September 2023, creatinine has been running in the 3.5 - 4.0mg/dl range * however, he continued to have azotemia due to need for chronic diuretic therapy * as noted by #1, I am worried he needs to continue/stay on dialysis just to maintain his fluid status.... ? (3) Bacteremia: Code(s): R78.81 - Bacteremia Status: Acute Assessment and Plan: * noted positive blood culture (one set of of 2 from 12/19) * organism noted: Micrococcus luteus * already on antibiotics * possible contamination(?) - follow repeat cultures * will attempt to keep catheter free until cultures are negative/infection cleared * plan tunneled HD catheter once bacteremia resolved - possibly tomorrow (4) Anasarca: Code(s): R60.1 - Generalized edema Status: Acute Assessment and Plan: * as noted by exam on admission * complicated by diuretic resistance * no augmentation in UOP with IV diuretics * fluid removal with HD/DUF - almost 5L negative since admission () Shortness of breath: Code(s): R06.02 - Shortness of breath Status: Acute Assessment and Plan: * clinically better * despite symptom, CXR clear * however, elevated BNP and evidence of volume overload * continue fluid removal with HD/DUF (6) Anemia: Code(s): D64.9 - Anemia, unspecified Status: Chronic Assessment and Plan: * due to LINDSEY, CKD, and acute illness * Epogen with HD * follow trend of H/H (7) Essential (primary) hypertension: Code(s): I10 - Essential (primary) hypertension Status: Chronic Assessment and Plan: * reasonable control * in the past, has required midodrine PRN with dialysis due to intradialytic hypotension * follow trend of hemodynamics (8) Diabetes: Code(s): E11.9 - Type 2 diabetes mellitus without complications Status: Chronic Assessment and Plan: * follow accu-cheks * glycemic control per hospitalists Will continue to follow. Subjective Date/time seen: 12/24/23 13:11 Interval history: Follow-up for acute kidney injury/acute renal failure on chronic k
--- NOTE | 2023-12-24 14:51 | PM.IMPN ---
Progress Note: A&P Assessment and Plan (1) Shortness of breath: Code(s): R06.02 - Shortness of breath Status: Acute (2) Essential (primary) hypertension: Code(s): I10 - Essential (primary) hypertension Status: Chronic (3) Hypertension associated with diabetes: Code(s): E11.59 - Type 2 diabetes mellitus with other circulatory complications; I15.2 - Hypertension secondary to endocrine disorders Status: Chronic (4) Acute on chronic kidney failure: Qualifiers: Acute renal failure type: unspecified Chronic kidney disease stage: stage 4 (severe) Qualified Code(s): N17.9 - Acute kidney failure, unspecified; N18.4 - Chronic kidney disease, stage 4 (severe) Code(s): N17.9 - Acute kidney failure, unspecified; N18.9 - Chronic kidney disease, unspecified Status: Chronic (5) Diabetes mellitus with proteinuria: Code(s): E11.29 - Type 2 diabetes mellitus with other diabetic kidney complication; R80.9 - Proteinuria, unspecified Status: Chronic (6) Congestive heart failure: Qualifiers: Heart failure chronicity: acute on chronic Heart failure type: diastolic Qualified Code(s): I50.33 - Acute on chronic diastolic (congestive) heart failure Code(s): I50.9 - Heart failure, unspecified Status: Chronic (7) Atrial fibrillation: Code(s): I48.91 - Unspecified atrial fibrillation Status: Acute Plan 83-year-old male with a past medical history CKD stage IIIB previously requiring dialysis for approximately 3 months due to diuretic resistance and fluid overload (discontinued 09/29/2023), hypertension, AFib on Eliquis, iron deficiency anemia, pulmonary hypertension, [id number] diabetes mellitus with neuropathy, hyperlipidemia, CHF, BPH, who presents with exertional shortness of breath lower extremity swelling and periorbital edema. Upon further questioning he also reports abdominal and soft tissue swelling of the back. In [facility] he had a elevated serum creatinine again. Admitted on 12/18/2023. LINDSEY on CKD stage 4 -as noted by admission creatinine. -complicated by azotemia diuretic resistance and anasarca and minimal response IV diuretics -patient agreed to dialysis again and a left femoral Pasquale catheter was placed on 12/18. -on 12/22, he received an additional session of dialysis and femoral Pasquale catheter removed after HD. Held off on placing a tunneled dialysis catheter due to bacteremia/blood culture contamination. -dialysis and electrolyte balance management per Nephrology. Anasarca -slowly improving. Continue dialysis Bacteremia -patient became altered on 12/19 and blood cultures x2 taken. Cefepime metronidazole and vancomycin started. Metronidazole discontinued on 12/21. -blood culture 12/19 1 bottle growing micrococcus -repeat blood cultures on 12/21 NGTD Micrococcus only in one bottle but had fever and AMS to suggest a real infection. Plan for tunneled catheter tomorrow. Continue abx treatment to coplete a course Acute encephalopathy -transient over the afternoon of 12/19. Resolved. Associated with fever of 101? F. -unclear source. Unclear if this was due to bacteremia or not, gabapentin/tramadol? Uremia? -gabapentin and tramadol are being held. -head CT was unremarkable. Urinalysis not indicative of infection. Chest CT demonstrating cardiomegaly pulmonary arterial hypertension small bilateral pleural effusions moderate ascites and body wall edema. Discontinued gabapentin and tramadol Mental status better. Suspect related to bacteremia. Anemia chronic disease/iron deficiency anemia: Hemoglobin stable. Continue to monitor. Epogen per Nephrology Thrombocytopenia: Appears to be somewhat chronic since late last year. Could be due to uremia? Monitor for bleeding. We may have to hold apixaban long-term and have risks versus benefits discussion with the patient. Currently on hold because of pending procedures. Elevated
[2023-12-24 16:57] LABS: Glucose Point of Care 153 mg/dl (65-105)
[2023-12-24] MEDS: CEFEPIME 1 GM/NS 50 ML 1 GM/50 ML BAG IVPB (17:44)
[2023-12-24] MEDS: guaiFENesin/DEXTROMETHORPHAN 10 ML UDC PO (17:45)
[2023-12-24 20:00] LABS: Glucose Point of Care 180 mg/dl (65-105)
[2023-12-25] VITALS (19 sets, daily range): BP systolic 106–128; BP diastolic 57–78; PULSE 46–66; RESP 11–18; TEMP 36.3–36.9; O2SAT 93–100
[2023-12-25 05:32] LABS: Basophils Percent Auto 0.6 % (0.2-1.2); Eosinophils Absolute Auto 0.1 K/mm3 (0-0.3); Eosinophils Percent Auto 1.7 % (0-4.4); Hematocrit 29.5 % (42.0-52.0); Hemoglobin 9.3 g/dL (14.0-18.0); Immature Granulocyte Absolute 0.03 K/mm3 (0.00-0.031); Immature Granulocyte Percent A 0.5 % (0-0.5); Immature Platelet Fraction Pct 6.5 % (0.9-11.2); Lymphocytes Absolute Auto 0.62 K/mm3 (0.9-3.2); Lymphocytes Percent Auto 9.4 % (18.3-44.2); Mean Corpuscular HGB Conc 31.5 g/dl (32-36); Mean Corpuscular Hemoglobin 29.8 pg (26-34); Mean Corpuscular Volume 94.6 fl (80-100); Mean Platelet Volume 13.3 fl (7.4-10.4); Monocytes Absolute Auto 0.8 K/mm3 (0.1-0.6); Monocytes Percent Auto 12.7 % (2.6-8.5); Neutrophils Percent Auto 75.1 % (45.5-73.1); Platelet Count Result 81 k/mm3 (150-375); Red Blood Count 3.12 M/mm3 (4.6-6.20); Red Cell Distribution Width 17.5 % (11.5-14.5); White Blood Count 6.6 K/mm3 (4.5-10.0)
[2023-12-25 05:52] LABS: Alanine Aminotransferase 29 U/L (6-50); Alkaline Phosphatase 311 U/L (38-126); Anion Gap 9 mmol/L (4-12); Aspartate Amino Transferase 43 U/L (17-59); Bilirubin,Total 2.3 mg/dL (0.2-1.3); Blood Urea Nitrogen 66 mg/dL (9-20); Carbon Dioxide 25 mmol/L (22-30); Chloride 104 mmol/L (98-107); Estimated CRCL calculation 14 ml/min; Estimated Glomerular Filt Rate 14; Glucose 160 mg/dL (65-110); Magnesium 1.8 mg/dL (1.6-2.3); Phosphorus 3.6 mg/dL (2.5-4.5); Potassium 3.7 mmol/L (3.4-5.0); Sodium 138 mmol/L (137-145)
[2023-12-25 06:39] LABS: Platelet Estimate Decreased (Adequate); Schistocytes Rare
[2023-12-25 06:40] LABS: Anisocytosis 1+; Burr Cells 1+; Hypochromasia 1+; Ovalocytes 1+
[2023-12-25 07:55] LABS: Glucose Point of Care 159 mg/dl (65-105)
[2023-12-25 11:50] LABS: Glucose Point of Care 138 mg/dl (65-105)
--- NOTE | 2023-12-25 12:06 | PC.NURSE ---
To OR via bed. Report given to Erica MORALES.
[2023-12-25 12:44] LABS: Glucose Point of Care 136 mg/dl (65-105)
--- NOTE | 2023-12-25 13:08 | WPDHPUPDATE1 ---
History and Physical Update Update Date/Time: 12/25/23 13:08 History and Physical has been reviewed, including an updated exam of the patient. There are NO changes in the patient's condition. Risks, benefits, and alternatives have been discussed and questions answered. Patient agrees to proceed with procedure.
--- NOTE | 2023-12-25 13:22 | WPDANESEPPF ---
Anes - Initial Pre Proc Eval Procedure: Operation Date: 12/19/23 14:30 Proposed Procedures p Femoral Pasquale Catheter Placement - Mani Julian MD Operation Date: 12/25/23 13:30 Proposed Procedures p Insertion Tunnelled Dialysis Catheter - Mani Julian MD Date/Time: 12/25/23 13:22 Surgeon: Darlene Slater MD Pre Op Diagnosis: hansel Patient Data Age: 83 Gender: M Height: 1.78 m Weight: 129 kg Last Vital Signs Temp 98.4 F 12/25/23 12:34 Pulse 51 L 12/25/23 12:34 Resp 18 12/25/23 04:32 BP 128/62 12/25/23 12:34 Pulse Ox 98 12/25/23 12:34 O2 Del Method Room Air 12/25/23 12:34 O2 Flow Rate 1 12/21/23 03:43 FiO2 99 12/22/23 13:59 Allergies Allergy/AdvReac Type Severity Reaction Status Date / Time No Known Allergies Allergy Verified 12/19/23 13:37 Home Medications Medication Instructions Recorded Confirmed Type blood pressure monitor #1 ea 01/10/20 12/18/23 Rx blood sugar diagnostic (Blood #100 ea 01/10/20 12/18/23 Rx Glucose Test strips) blood-glucose meter #1 ea 01/10/20 12/18/23 Rx lancets #200 ea 01/10/20 12/18/23 Rx pen needle, diabetic 31 gauge x #100 ea 08/23/22 12/18/23 Rx 5/16 (BD Ultra-Fine Short Pen Needle) cholecalciferol (vitamin D3) 50 50 mcg PO DAILY 12/26/22 12/18/23 History mcg (2,000 unit) capsule allopurinol 100 mg tablet 100 mg PO DAILY #90 tabs 01/30/23 12/18/23 Rx atorvastatin 10 mg tablet 10 mg PO DAILY #90 tabs 03/14/23 12/18/23 Rx albuterol sulfate 90 mcg/actuation 2 puff inhalation Q6HRT PRN 04/23/23 12/18/23 Rx aerosol inhaler (Proventil HFA) Shortness Of Breath #6.7 grams apixaban 2.5 mg tablet (Eliquis) 2.5 mg PO Q12HR #180 tabs 07/30/23 12/18/23 Rx tramadol 50 mg tablet 50 mg PO Q8H PRN pain #90 tabs 08/27/23 12/18/23 Rx liraglutide 0.6 mg/0.1 mL (18 mg/3 See Rx Instructions .Route 09/22/23 12/18/23 Rx mL) subcutaneous pen injector .COMPLEX #18 mL (Victoza 2-Vidal) gabapentin 300 mg capsule 300 mg PO QHS #30 caps 09/29/23 12/18/23 Rx bumetanide 1 mg tablet 2 mg PO BID 10/20/23 12/18/23 History cyanocobalamin (vitamin B-12) 1,000 mcg PO DAILY 11/03/23 12/18/23 History 1,000 mcg capsule ferrous sulfate 325 mg (65 mg 650 mg PO EVERY OTHER DAY 11/03/23 12/18/23 History iron) tablet (FeroSul) calcitriol 0.25 mcg capsule 0.25 mcg PO 4XW #48 caps 11/19/23 12/18/23 Rx carvedilol 12.5 mg tablet 6.25 mg PO BID 12/18/23 12/18/23 History Laboratory Tests 12/24/23 12/24/23 12/25/23 16:51 19:31 04:58 WBC 6.6 K/mm3 (4.5-10.0) RBC 3.12 L M/mm3 (4.6-6.20) Hgb 9.3 L g/dL (14.0-18.0) Hct 29.5 L % (42.0-52.0) MCV 94.6 fl (80-100) MCH 29.8 pg (26-34) MCHC 31.5 L g/dl (32-36) RDW 17.5 H % (11.5-14.5) Plt Count 81 L k/mm3 (150-375) MPV 13.3 H fl (7.4-10.4) Immature Gran % (Auto) 0.5 % (0-0.5) Neut % (Auto) 75.1 H % (45.5-73.1) Lymph % (Auto) 9.4 L % (18.3-44.2) Spink % (Auto) 12.7 H % (2.6-8.5) Eos % (Auto) 1.7 % (0-4.4) Baso % (Auto) 0.6 % (0.2-1.2) Lymph # (Auto) 0.62 L K/mm3 (0.9-3.2) Spink # (Auto) 0.8 H K/mm3 (0.1-0.6) Eos # (Auto) 0.1 K/mm3 (0-0.3) Baso # (Auto) 0.0 K/mm3 (0.0-0.1) Abs Immat Gran (auto) 0.03 K/mm3 (0.00-0.031) Absolute Neuts (auto) 5.0 K/mm3 (1.3-6.7) Absolute Nucleated RBC 0.000 K/mm3 (0.0-0.012) Nucleated RBC % 0.0 % (0.0-0.2) Platelet Estimate Decreased (Adequate) % Immature Plt Fraction 6.5 % (0.9-11.2) Hypochromasia 1+ Anisocytosis 1+ Ovalocytes 1+ Blaine Cells 1+ Schistocytes Rare Sodium 138 mmol/L (137-145) Potassium 3.7 mmol/L (3.4-5.0) Chloride 104 mmol/L (98-107) Carbon Dioxide 25 mmol/L
[2023-12-25] MEDS: ceFAZolin 2 GM/D5W 50 ML 2 GM/50 ML BAG IVPB (13:35)
[2023-12-25] MEDS: SODIUM CHLORIDE 0.9% IV 500 ML 30 ML IV CONT (13:46)
--- NOTE | 2023-12-25 13:57 | PM.IMPN ---
Progress Note: A&P Assessment and Plan (1) Shortness of breath: Code(s): R06.02 - Shortness of breath Status: Acute (2) Essential (primary) hypertension: Code(s): I10 - Essential (primary) hypertension Status: Chronic (3) Hypertension associated with diabetes: Code(s): E11.59 - Type 2 diabetes mellitus with other circulatory complications; I15.2 - Hypertension secondary to endocrine disorders Status: Chronic (4) Acute on chronic kidney failure: Qualifiers: Acute renal failure type: unspecified Chronic kidney disease stage: stage 4 (severe) Qualified Code(s): N17.9 - Acute kidney failure, unspecified; N18.4 - Chronic kidney disease, stage 4 (severe) Code(s): N17.9 - Acute kidney failure, unspecified; N18.9 - Chronic kidney disease, unspecified Status: Chronic (5) Diabetes mellitus with proteinuria: Code(s): E11.29 - Type 2 diabetes mellitus with other diabetic kidney complication; R80.9 - Proteinuria, unspecified Status: Chronic (6) Congestive heart failure: Qualifiers: Heart failure chronicity: acute on chronic Heart failure type: diastolic Qualified Code(s): I50.33 - Acute on chronic diastolic (congestive) heart failure Code(s): I50.9 - Heart failure, unspecified Status: Chronic (7) Atrial fibrillation: Code(s): I48.91 - Unspecified atrial fibrillation Status: Acute Plan 83-year-old male with a past medical history CKD stage IIIB previously requiring dialysis for approximately 3 months due to diuretic resistance and fluid overload (discontinued 09/29/2023), hypertension, AFib on Eliquis, iron deficiency anemia, pulmonary hypertension, [id number] diabetes mellitus with neuropathy, hyperlipidemia, CHF, BPH, who presents with exertional shortness of breath lower extremity swelling and periorbital edema. Upon further questioning he also reports abdominal and soft tissue swelling of the back. In [facility] he had a elevated serum creatinine again. Admitted on 12/18/2023. LINDSEY on CKD stage 4 -as noted by admission creatinine. -complicated by azotemia diuretic resistance and anasarca and minimal response IV diuretics -patient agreed to dialysis again and a left femoral Pasquale catheter was placed on 12/18. -on 12/22, he received an additional session of dialysis and femoral Pasquale catheter removed after HD. Held off on placing a tunneled dialysis catheter due to bacteremia -dialysis and electrolyte balance management per Nephrology. Patient had tunneled catheter placed today. Anasarca -slowly improving. Continue dialysis to control fluid status Bacteremia -patient became altered on 12/19 and blood cultures x2 taken. Cefepime metronidazole and vancomycin started. Metronidazole discontinued on 12/21. -blood culture 12/19 1 bottle growing micrococcus -repeat blood cultures on 12/21 NGTD Micrococcus only in one bottle but had fever and AMS to suggest a real infection. Repeat BCx NGTD Continue abx treatment to complete a course; discussed with PharmD ID and abx adjusted. Acute encephalopathy -transient over the afternoon of 12/19. Resolved. Associated with fever of 101? F. -unclear source. Unclear if this was due to bacteremia or gabapentin/tramadol? Uremia? -head CT was unremarkable. Urinalysis not indicative of infection. Chest CT demonstrating cardiomegaly pulmonary arterial hypertension small bilateral pleural effusions moderate ascites and body wall edema. Discontinued gabapentin and tramadol Mental status better. Suspect related to bacteremia. Anemia chronic disease/iron deficiency anemia: Hemoglobin stable. Continue to monitor. Epogen per Nephrology Thrombocytopenia: Appears to be somewhat chronic since late last year. Could be due to uremia? Monitor for bleeding. Apixaban currently on hold because of pending procedures but should be okay to resume. Elevated INR: Apixaban is not known to elevate
--- NOTE | 2023-12-25 14:40 | PC.NURSE ---
Patient returned to floor via bed from OR. Report received from Jenelle MORALES. Patient has no complaints at this time.
--- NOTE | 2023-12-25 14:52 | W.PM.PROC2 ---
Procedure Note - Detailed Date of Procedure 12/25/23 Pre-op Diagnosis End stage renal disease Post-op Diagnosis Same Procedure Performed Placement of right subclavian vein tunneled hemodialysis catheter with intraoperative fluoroscopy Surgeon Mani Julian MD [place] [facility] ALFREDA [facility]ter Anesthesia General Indications Patient is a 83-year-old gentleman who has had prior history of acute on chronic renal failure. In the pass 60 months he has had placement of 2 tunneled hemodialysis catheters. Each time he had recovery of renal function and the tunneled catheter was removed. He was readmitted recently with volume overload and again has acute on chronic renal failure. Nephrology his cast for another tunneled hemodialysis catheter is it appears that the patient may be transitioning to end-stage renal disease. Findings None significant Description of Procedure After informed consent was obtained patient brought to the operating room was placed supine position and then general LMA anesthesia was administered. The bilateral upper neck and chest was then prepped and draped usual sterile fashion. With the patient head-down Trendelenburg position I then proceeded to utilize a long 18gauge needle and cannulate the right subclavian vein on 1st pass the knee difficulty. There was prompt return of dark venous appearing blood. A guidewire was advanced through the right subclavian into the right atrium of the heart. Intraoperative fluoroscopy was then used to confirm the proper orientation and placement of the tip of the guidewire. I then chose a tunneled dura flow hemodialysis catheter. I then made a small stab incision several cm below the insertion site of the guidewire. I then enlarged the insertion site of the guidewire at the skin with a #11 Blade scalpel. The dura flow hemodialysis catheter was then tunneled between the 2 small incisions. The cuff of the catheter was situated the subcutaneous tunnel about 2cm below the superior incision. I then proceeded advanced serial dilators over the guidewire to enlarge the venotomy. Lastly a large-bore dilator and breakaway sheath was advanced over the guidewire. The guidewire and dilator removed leaving the sheath in place. The catheter was then placed through the sheath into the right subclavian vein subsequent down into the distal superior vena cava. The sheath was then torn away. Intraoperative fluoroscopy was then used to visualize the tip of the catheter. It appeared to be in good position in the distal superior vena cava. I then checked the flows in both the arterial and venous ports. Both aspirated blood very easily and had good high flows without any resistance. I then secured the catheter to the skin utilizing 3-0 nylon sutures. The tube ports were then flushed 1 last time with 2500units of IV heparin in each port. I then closed the small incision at the insertion site of the catheter with a 4-0 Monocryl suture incision was then cleaned and then was applied. A sterile dressing was applied to the hemodialysis catheter. The patient tolerated the procedure well no complications. All sponges, needles, and instrument counts were correct at the end procedure. EBL was _50__cc. The patient was awakened and taken to recovery in stable and satisfactory condition. Postprocedure chest x-ray revealed the tip of the catheter via the mid to distal superior vena cava and without evidence of pneumothorax. Implants Tunnel dura flow hemodialysis catheter right subclavian vein. Estimated Blood Loss 50 Urine Output 30 Drains No Packing No Pathology None sent Complications No immediate complications Condition Stable Disposition PACU [facility] Billing Surgery - Charge Forward: Surgery Billing
[2023-12-25 15:03] LABS: Glucose Point of Care 136 mg/dl (65-105)
[2023-12-25] MEDS: SENNA/DOCUSATE SODIUM TABLET 1 TAB PO (16:48)
[2023-12-25] MEDS: CEFEPIME 1 GM/NS 50 ML 1 GM/50 ML BAG IVPB (16:48)
[2023-12-25 16:52] LABS: Glucose Point of Care 164 mg/dl (65-105)
[2023-12-25 20:11] LABS: Glucose Point of Care 278 mg/dl (65-105)
[2023-12-25] MEDS: APIXABAN 2.5 MG TABLET PO (20:52)
[2023-12-26] VITALS (20 sets, daily range): BP systolic 102–141; BP diastolic 24–82; PULSE 50–79; RESP 14–18; TEMP 36.3–37; O2SAT 98
[2023-12-26 05:01] LABS: Hematocrit 32.3 % (42.0-52.0); Hemoglobin 10.1 g/dL (14.0-18.0); Mean Corpuscular HGB Conc 31.3 g/dl (32-36); Mean Corpuscular Hemoglobin 29.7 pg (26-34); Mean Platelet Volume 12.5 fl (7.4-10.4); Platelet Count Result 102 k/mm3 (150-375); Red Cell Distribution Width 17.7 % (11.5-14.5); White Blood Count 7.5 K/mm3 (4.5-10.0)
[2023-12-26 05:10] LABS: Alanine Aminotransferase 20 U/L (6-50); Alkaline Phosphatase 256 U/L (38-126); Anion Gap 10 mmol/L (4-12); Aspartate Amino Transferase 35 U/L (17-59); Bilirubin,Total 1.8 mg/dL (0.2-1.3); Blood Urea Nitrogen 74 mg/dL (9-20); Carbon Dioxide 22 mmol/L (22-30); Chloride 104 mmol/L (98-107); Estimated CRCL calculation 13 ml/min; Estimated Glomerular Filt Rate 12; Glucose 200 mg/dL (65-110); Magnesium 1.9 mg/dL (1.6-2.3); Potassium 4.4 mmol/L (3.4-5.0); Sodium 136 mmol/L (137-145)
[2023-12-26 07:33] LABS: Bilirubin Indirect 0.1 mg/dL (0-1.1)
[2023-12-26] MEDS: MIDODRINE HCL 10 MG TABLET PO (07:52)
[2023-12-26 08:12] LABS: Glucose Point of Care 177 mg/dl (65-105)
--- NOTE | 2023-12-26 08:26 | PC.NURSE ---
Patient transferred to dialysis via bed. Report given to Ayden MORALES.
[2023-12-26] MEDS: ALBUMIN HUMAN 25% 12.5 GM/50ML 50 ML IVPB (09:00)
[2023-12-26] MEDS: ALBUMIN HUMAN 25% 12.5 GM/50ML 100 ML 50 GM (09:00)
--- NOTE | 2023-12-26 09:20 | PM.PNNEP ---
Progress Note: A&P Assessment and Plan (1) LINDSEY (acute kidney injury): Code(s): N17.9 - Acute kidney failure, unspecified Status: Acute Assessment and Plan: as noted by admission creatinine complicated by significant azotemia, diuretic resistance, and anasarca minimal response to IV diuretics as well restarted on [employer]/dialysis again given current circumstances although the hope is that his kidney function will improve, this may not change the fact that he may need to continue [employer]/dialysis indefinitely just to maintain his fluid/volume status given his propensity with regard to fluid retention resistant to diuretic therapy.... HD today outpatient dialysis being arranged (2) Chronic kidney disease, stage IV (severe): Code(s): N18.4 - Chronic kidney disease, stage 4 (severe) Status: Chronic Assessment and Plan: due to biopsy proven diabetic and hypertensive nephrosclerosis renal function is further complicated by his fluid status: lower creatinine due to fluid overload/dilution and higher creatinine due to diuresis to attain relative euvolemia outpatient evaluation to date demonstrates a normal renal ultrasound, moderate proteinuria, and negative serological studies His creatinine was running ~ 1.9 - 2.6mg/dl but worsened in July 2023 requiring [employer]/dialysis since discontinuation of dialysis in September 2023, creatinine has been running in the 3.5 - 4.0mg/dl range however, he continued to have azotemia due to need for chronic diuretic therapy as noted by #1, I am worried he needs to continue/stay on dialysis just to maintain his fluid status.... ? (3) Bacteremia: Code(s): R78.81 - Bacteremia Status: Acute Assessment and Plan: resolved noted positive blood culture (one set of of 2 from 12/19) organism noted: Micrococcus luteus suspect contamination - repeat cultures negative (4) Anasarca: Code(s): R60.1 - Generalized edema Status: Acute Assessment and Plan: as noted by exam on admission complicated by diuretic resistance no augmentation in UOP with IV diuretics fluid removal with HD/DUF as tolerated by hemodynamics (5) Shortness of breath: Code(s): R06.02 - Shortness of breath Status: Acute Assessment and Plan: clinically better despite symptom, CXR clear however, elevated BNP and evidence of volume overload continue fluid removal with HD/DUF (6) Anemia: Code(s): D64.9 - Anemia, unspecified Status: Chronic Assessment and Plan: due to LINDSEY, CKD, and acute illness Epogen with HD follow trend of H/H (7) Essential (primary) hypertension: Code(s): I10 - Essential (primary) hypertension Status: Chronic Assessment and Plan: reasonable control in the past, has required midodrine PRN with dialysis due to intradialytic hypotension follow trend of hemodynamics (8) Diabetes: Code(s): E11.9 - Type 2 diabetes mellitus without complications Status: Chronic Assessment and Plan: follow accu-cheks glycemic control per hospitalists Will continue to follow. Subjective Date/time seen: 12/26/23 09:20 Interval history: Follow-up for acute kidney injury/acute renal failure on chronic kidney disease and anasarca. Unable to see yesterday as was out of room for procedure (tunneled HD catheter placement); tolerated PermCath placement yesterday afternoon without any issues; tolerating dialysis treatment at the time of my visit (seen on HD at 9:10AM); no events overnight or earlier this morning. Exam Narrative: General: WD/WN male in NAD Heart: normal S1 and S2; IRRR, no rub Lungs: clear anteriorly; decreased at bases Abdomen: soft, nontender, nondistended, positive bowel sounds Extremities: no cyanosis or clubbing; 1+ edema (present in RUE, bilateral LEs in things/calves/kness, upper/lower abdomen, periorbital area)
--- NOTE | 2023-12-26 09:20 | P.PNNP_ITS ---
Progress Note: A&P Assessment and Plan (1) LINDSEY (acute kidney injury): Code(s): N17.9 - Acute kidney failure, unspecified Status: Acute Assessment and Plan: * as noted by admission creatinine * complicated by significant azotemia, diuretic resistance, and anasarca * minimal response to IV diuretics as well * restarted on [employer]/dialysis again given current circumstances * although the hope is that his kidney function will improve, this may not change the fact that he may need to continue [employer]/dialysis indefinitely just to maintain his fluid/volume status given his propensity with regard to fluid retention resistant to diuretic therapy.... * HD today * outpatient dialysis being arranged (2) Chronic kidney disease, stage IV (severe): Code(s): N18.4 - Chronic kidney disease, stage 4 (severe) Status: Chronic Assessment and Plan: * due to biopsy proven diabetic and hypertensive nephrosclerosis * renal function is further complicated by his fluid status: * lower creatinine due to fluid overload/dilution and higher creatinine due to diuresis to attain relative euvolemia * outpatient evaluation to date demonstrates a normal renal ultrasound, moderate proteinuria, and negative serological studies * His creatinine was running ~ 1.9 - 2.6mg/dl but worsened in July 2023 requiring [employer]/dialysis * since discontinuation of dialysis in September 2023, creatinine has been running in the 3.5 - 4.0mg/dl range * however, he continued to have azotemia due to need for chronic diuretic therapy * as noted by #1, I am worried he needs to continue/stay on dialysis just to maintain his fluid status.... ? (3) Bacteremia: Code(s): R78.81 - Bacteremia Status: Acute Assessment and Plan: * resolved * noted positive blood culture (one set of of 2 from 12/19) * organism noted: Micrococcus luteus * suspect contamination - repeat cultures negative (4) Anasarca: Code(s): R60.1 - Generalized edema Status: Acute Assessment and Plan: * as noted by exam on admission * complicated by diuretic resistance * no augmentation in UOP with IV diuretics * fluid removal with HD/DUF as tolerated by hemodynamics (5) Shortness of breath: Code(s): R06.02 - Shortness of breath Status: Acute Assessment and Plan: * clinically better * despite symptom, CXR clear * however, elevated BNP and evidence of volume overload * continue fluid removal with HD/DUF (6) Anemia: Code(s): D64.9 - Anemia, unspecified Status: Chronic Assessment and Plan: * due to LINDSEY, CKD, and acute illness * Epogen with HD * follow trend of H/H (7) Essential (primary) hypertension: Code(s): I10 - Essential (primary) hypertension Status: Chronic Assessment and Plan: * reasonable control * in the past, has required midodrine PRN with dialysis due to intradialytic h ypotension * follow trend of hemodynamics (8) Diabetes: Code(s): E11.9 - Type 2 diabetes mellitus without complications Status: Chronic Assessment and Plan: * follow accu-cheks * glycemic control per hospitalists Will continue to follow. Subjective Date/time seen: 12/26/23 09:20 Interval history: Follow-up for acute kidney injury/acute renal failure on chronic kidney disease and anasarca. Unable to see yesterday as was out of room for procedure (tunneled HD catheter placement); tolerated PermCath placement yesterday afternoon witho
[2023-12-26] MEDS: EPOETIN ALFA-EPBX 10,000 UNITS/ML VIAL 10000 UNITS IV PUSH (10:57)
--- NOTE | 2023-12-26 11:32 | PM.DS ---
DS: Admitting Diagnosis Discharge Date 12/30/23 Admitting Diagnosis Shortness of breath DS: Discharge Diagnosis Discharge Diagnosis (1) Acute on chronic kidney failure: Qualifiers: Acute renal failure type: unspecified Chronic kidney disease stage: stage 4 (severe) Qualified Code(s): N17.9 - Acute kidney failure, unspecified; N18.4 - Chronic kidney disease, stage 4 (severe) Code(s): N17.9 - Acute kidney failure, unspecified; N18.9 - Chronic kidney disease, unspecified Status: Chronic (2) Anasarca: Code(s): R60.1 - Generalized edema Status: Acute (3) Bacteremia: Code(s): R78.81 - Bacteremia Status: Acute (4) Encephalopathy: Code(s): G93.40 - Encephalopathy, unspecified Status: Acute (5) Anemia: Code(s): D64.9 - Anemia, unspecified Status: Chronic (6) Thrombocytopenia: Code(s): D69.6 - Thrombocytopenia, unspecified Status: Acute (7) Atrial fibrillation: Code(s): I48.91 - Unspecified atrial fibrillation Status: Acute (8) Essential (primary) hypertension: Code(s): I10 - Essential (primary) hypertension Status: Chronic (9) Hypertension associated with diabetes: Code(s): E11.59 - Type 2 diabetes mellitus with other circulatory complications; I15.2 - Hypertension secondary to endocrine disorders Status: Chronic (10) Congestive heart failure: Qualifiers: Heart failure chronicity: acute on chronic Heart failure type: diastolic Qualified Code(s): I50.33 - Acute on chronic diastolic (congestive) heart failure Code(s): I50.9 - Heart failure, unspecified Status: Chronic (11) Diabetes: Code(s): E11.9 - Type 2 diabetes mellitus without complications Status: Chronic (12) Hyperbilirubinemia: Code(s): E80.6 - Other disorders of bilirubin metabolism Status: Acute DS: Summary Hospital Course Reason for hospitalization: 83yo male with CHF, pulm HTN, ESRD, DM, HTN and chronic anemia here for SOB. Please see H&P for details. Hospital Course: 83-year-old male with a past medical history CKD stage IIIB previously requiring dialysis for approximately 3 months due to diuretic resistance and fluid overload (discontinued 09/29/2023), hypertension, AFib on Eliquis, iron deficiency anemia, pulmonary hypertension, [id number] diabetes mellitus with neuropathy, hyperlipidemia, CHF, BPH, who presents with exertional shortness of breath lower extremity swelling and periorbital edema. Upon further questioning he also reports abdominal and soft tissue swelling of the back. In [facility] he had a elevated serum creatinine again. Admitted on 12/18/2023. LINDSEY on CKD stage 4 Patient with azotemia, anasarca and minimal response IV diuretics. Patient agreed to dialysis again and a left femoral Pasquale catheter was placed on 12/18. Patient became altered on 12/19 with fevers and blood cultures x2 taken. Acute encephalopathy was transient over the afternoon of 12/19. Unclear if this was due to bacteremia or gabapentin/tramadol. Head CT was unremarkable. Urinalysis not indicative of infection. Chest CT demonstrating cardiomegaly, pulmonary arterial hypertension, small bilateral pleural effusions, moderate ascites and body wall edema. We discontinued gabapentin and tramadol. Mental status better. Suspect related to bacteremia. Cefepime, metronidazole and vancomycin started. Blood culture 12/19 1 bottle growing micrococcus. Micrococcus only in one bottle but had fever and AMS to suggest a real infection. Repeat blood cultures on 12/21 negative. Plan to continue abx treatment to complete a course; discussed with PharmD ID and abx adjusted. On 12/22, he received an additional session of dialysis and femoral Pasquale catheter removed after HD. Held off on placing a tunneled dialysis catheter due to bacteremia. Patient had tunneled catheter placed 12/25/23. Thrombocytopenia felt to be a
--- NOTE | 2023-12-26 12:54 | WPDANESPN ---
Anes - Prog Note Post-Op Date/Time: 12/26/23 12:54 Cardiovascular status: normal Respiratory status: normal Airway patency: baseline Mental status: baseline Post-Op hydration status: normal Vital Signs: Last Vital Signs Temp 97.3 F L 12/26/23 12:34 Pulse 57 L 12/26/23 12:34 Resp 14 12/26/23 12:34 BP 127/69 12/26/23 12:34 Pulse Ox 98 12/26/23 12:34 O2 Del Method Room Air 12/26/23 08:00 O2 Flow Rate 0 12/26/23 08:37 FiO2 0 12/26/23 08:37 Pain Score (VAS): 0/10 I/O: Intake & Output 12/25/23 12/26/23 12/26/23 23:59 07:59 15:59 Intake Total 490 200 Output Total 471 468 9362 Balance 390 100 -2500 Laboratory Tests 12/26/23 04:39 12/26/23 04:39 12/25/23 12/25/23 12/25/23 15:00 16:44 19:45 WBC RBC Hgb Hct MCV MCH MCHC RDW Plt Count MPV Sodium Potassium Chloride Carbon Dioxide Anion Gap BUN Creatinine Estim Creat Clear Calc Estimated GFR Glucose POC Capillary Glucose 136 H 164 H 278 H Calcium Phosphorus Magnesium Total Bilirubin Indirect Bilirubin AST ALT Alkaline Phosphatase Total Protein Albumin 12/26/23 12/26/23 04:39 08:07 WBC 7.5 RBC 3.40 L Hgb 10.1 L Hct 32.3 L MCV 95.0 MCH 29.7 MCHC 31.3 L RDW 17.7 H Plt Count 102 L MPV 12.5 H Sodium 136 L Potassium 4.4 Chloride 104 Carbon Dioxide 22 Anion Gap 10 BUN 74 H Creatinine 5.40 H Estim Creat Clear Calc 13 Estimated GFR 12 L Glucose 200 H POC Capillary Glucose 177 H Calcium 8.0 L Phosphorus 5.0 H Magnesium 1.9 Total Bilirubin 1.8 H Indirect Bilirubin 0.1 AST 35 ALT 20 Alkaline Phosphatase 256 H Total Protein 7.0 Albumin 3.0 L Microbiology 12/20/23 15:00 Blood Blood Culture - Final Post-procedural complaints: none Patient Feedback: Patient satisfied with anesthetic care.
--- NOTE | 2023-12-26 12:55 | PC.NURSE ---
Patient returned to floor from dialysis. Report received from Ayden MORALES. No patient complaints at this time.
[2023-12-26 13:02] LABS: Glucose Point of Care 132 mg/dl (65-105)
[2023-12-26] MEDS: SENNA/DOCUSATE SODIUM TABLET 1 TAB PO (13:36)
[2023-12-26] MEDS: FERROUS SULFATE 325 MG TABLET DR 650 MG PO (13:36)
[2023-12-26] MEDS: CHOLECALCIFEROL 1,000 UNITS TABLET 2000 UNITS PO (13:36)
[2023-12-26] MEDS: CYANOCOBALAMIN 1,000 MCG TABLET 1000 MCG PO (13:36)
[2023-12-26] MEDS: allopurinoL 100 MG TABLET PO (13:36)
[2023-12-26] MEDS: ATORVASTATIN 10 MG TABLET PO (13:36)
[2023-12-26] MEDS: LINEZOLID 600 MG TABLET PO ×2 (13:38→21:07)
[2023-12-26] MEDS: calcitrioL 0.25 MCG CAPSULE PO (13:38)
[2023-12-26] MEDS: guaiFENesin/DEXTROMETHORPHAN 10 ML UDC PO (13:39)
[2023-12-26] MEDS: APIXABAN 2.5 MG TABLET PO ×2 (13:39→21:07)
[2023-12-26 17:07] LABS: Glucose Point of Care 185 mg/dl (65-105)
--- NOTE | 2023-12-26 19:16 | PM.IMPN ---
Progress Note: A&P Assessment and Plan (1) Acute on chronic kidney failure: Qualifiers: Acute renal failure type: unspecified Chronic kidney disease stage: stage 4 (severe) Qualified Code(s): N17.9 - Acute kidney failure, unspecified; N18.4 - Chronic kidney disease, stage 4 (severe) Code(s): N17.9 - Acute kidney failure, unspecified; N18.9 - Chronic kidney disease, unspecified Status: Chronic (2) Anasarca: Code(s): R60.1 - Generalized edema Status: Acute (3) Bacteremia: Code(s): R78.81 - Bacteremia Status: Acute (4) Encephalopathy: Code(s): G93.40 - Encephalopathy, unspecified Status: Acute (5) Anemia: Code(s): D64.9 - Anemia, unspecified Status: Chronic (6) Thrombocytopenia: Code(s): D69.6 - Thrombocytopenia, unspecified Status: Acute (7) Atrial fibrillation: Code(s): I48.91 - Unspecified atrial fibrillation Status: Acute (8) Essential (primary) hypertension: Code(s): I10 - Essential (primary) hypertension Status: Chronic (9) Hypertension associated with diabetes: Code(s): E11.59 - Type 2 diabetes mellitus with other circulatory complications; I15.2 - Hypertension secondary to endocrine disorders Status: Chronic (10) Congestive heart failure: Qualifiers: Heart failure type: diastolic Heart failure chronicity: acute on chronic Qualified Code(s): I50.33 - Acute on chronic diastolic (congestive) heart failure Code(s): I50.9 - Heart failure, unspecified Status: Chronic (11) Diabetes: Code(s): E11.9 - Type 2 diabetes mellitus without complications Status: Chronic (12) Hyperbilirubinemia: Code(s): E80.6 - Other disorders of bilirubin metabolism Status: Acute Plan 83-year-old male with a past medical history CKD stage IIIB previously requiring dialysis for approximately 3 months due to diuretic resistance and fluid overload (discontinued 09/29/2023), hypertension, AFib on Eliquis, iron deficiency anemia, pulmonary hypertension, [id number] diabetes mellitus with neuropathy, hyperlipidemia, CHF, BPH, who presents with exertional shortness of breath lower extremity swelling and periorbital edema. Upon further questioning he also reports abdominal and soft tissue swelling of the back. In [facility] he had a elevated serum creatinine again. Admitted on 12/18/2023. LINDSEY on CKD stage 4 -as noted by admission creatinine. -complicated by azotemia diuretic resistance and anasarca and minimal response IV diuretics -patient agreed to dialysis again and a left femoral Pasquale catheter was placed on 12/18. -on 12/22, he received an additional session of dialysis and femoral Pasquale catheter removed after HD. Held off on placing a tunneled dialysis catheter due to bacteremia -dialysis and electrolyte balance management per Nephrology. Patient had tunneled catheter placed yesterday. Tolerating HD Anasarca -slowly improving. Continue dialysis to control fluid status Bacteremia -patient became altered on 12/19 and blood cultures x2 taken. Cefepime metronidazole and vancomycin started. Metronidazole discontinued on 12/21. -blood culture 12/19 1 bottle growing micrococcus -repeat blood cultures on 12/21 NGTD Micrococcus only in one bottle but had fever and AMS to suggest a real infection. Repeat BCx NGTD Continue abx treatment to complete a course; discussed with PharmD ID and abx adjusted. Acute encephalopathy -transient over the afternoon of 12/19. Resolved. Associated with fever of 101? F. -unclear source. Unclear if this was due to bacteremia or gabapentin/tramadol? Uremia? -head CT was unremarkable. Urinalysis not indicative of infection. Chest CT demonstrating cardiomegaly pulmonary arterial hypertension small bilateral pleural effusions moderate ascites and body wall edema. Discontinued gabapentin and tramadol Mental status better. Suspect related to
[2023-12-26 22:23] LABS: Glucose Point of Care 174 mg/dl (65-105)
[2023-12-26 22:23] LABS: Glucose Point of Care 170 mg/dl (65-105)
[2023-12-27] VITALS (20 sets, daily range): BP systolic 100–125; BP diastolic 61–79; PULSE 46–64; RESP 16–18; TEMP 0–37; O2SAT 95–100
--- NOTE | 2023-12-27 07:56 | PM.IMPN ---
Progress Note: A&P Assessment and Plan (1) Acute on chronic kidney failure: Qualifiers: Acute renal failure type: unspecified Chronic kidney disease stage: stage 4 (severe) Qualified Code(s): N17.9 - Acute kidney failure, unspecified; N18.4 - Chronic kidney disease, stage 4 (severe) Code(s): N17.9 - Acute kidney failure, unspecified; N18.9 - Chronic kidney disease, unspecified Status: Chronic (2) Anasarca: Code(s): R60.1 - Generalized edema Status: Acute (3) Bacteremia: Code(s): R78.81 - Bacteremia Status: Acute (4) Encephalopathy: Code(s): G93.40 - Encephalopathy, unspecified Status: Acute (5) Anemia: Code(s): D64.9 - Anemia, unspecified Status: Chronic (6) Thrombocytopenia: Code(s): D69.6 - Thrombocytopenia, unspecified Status: Acute (7) Atrial fibrillation: Code(s): I48.91 - Unspecified atrial fibrillation Status: Acute (8) Essential (primary) hypertension: Code(s): I10 - Essential (primary) hypertension Status: Chronic (9) Hypertension associated with diabetes: Code(s): E11.59 - Type 2 diabetes mellitus with other circulatory complications; I15.2 - Hypertension secondary to endocrine disorders Status: Chronic (10) Congestive heart failure: Qualifiers: Heart failure type: diastolic Heart failure chronicity: acute on chronic Qualified Code(s): I50.33 - Acute on chronic diastolic (congestive) heart failure Code(s): I50.9 - Heart failure, unspecified Status: Chronic (11) Diabetes: Code(s): E11.9 - Type 2 diabetes mellitus without complications Status: Chronic (12) Hyperbilirubinemia: Code(s): E80.6 - Other disorders of bilirubin metabolism Status: Acute Plan 83-year-old male with a past medical history CKD stage IIIB previously requiring dialysis for approximately 3 months due to diuretic resistance and fluid overload (discontinued 09/29/2023), hypertension, AFib on Eliquis, iron deficiency anemia, pulmonary hypertension, [id number] diabetes mellitus with neuropathy, hyperlipidemia, CHF, BPH, who presents with exertional shortness of breath lower extremity swelling and periorbital edema. Upon further questioning he also reports abdominal and soft tissue swelling of the back. In [facility] he had a elevated serum creatinine again. Admitted on 12/18/2023. LINDSEY on CKD stage 4 -as noted by admission creatinine. -complicated by azotemia diuretic resistance and anasarca and minimal response IV diuretics -patient agreed to dialysis again and a left femoral Pasquale catheter was placed on 12/18. -on 12/22, he received an additional session of dialysis and femoral Pasquale catheter removed after HD. Held off on placing a tunneled dialysis catheter due to bacteremia -dialysis and electrolyte balance management per Nephrology. Patient had tunneled catheter placed 12/24. Tolerating HD. Possible repeat HD today to help with fluid status Anasarca -slowly improving. Continue dialysis to control fluid status Bacteremia -patient became altered on 12/19 and blood cultures x2 taken. Cefepime metronidazole and vancomycin started. Metronidazole discontinued on 12/21. -blood culture 12/19 1 bottle growing micrococcus -repeat blood cultures on 12/21 NGTD Micrococcus only in one bottle but had fever and AMS to suggest a real infection. Repeat BCx NGTD Continue abx treatment to complete a course; discussed with PharmD ID and abx adjusted. Acute encephalopathy -transient over the afternoon of 12/19. Resolved. Associated with fever of 101? F. -[place] related to the fever -head CT was unremarkable. Urinalysis not indicative of infection. Chest CT demonstrating cardiomegaly, pulmonary arterial hypertension, small bilateral pleural effusions, moderate ascites and body wall edema. Discontinued gabapentin and tramadol Mental status better. Suspect related to fever and b
[2023-12-27 08:26] LABS: Glucose Point of Care 145 mg/dl (65-105)
[2023-12-27] MEDS: MIDODRINE HCL 10 MG TABLET PO (08:31)
--- NOTE | 2023-12-27 08:36 | PC.NURSE ---
Patient to dialysis via bed. Report given to CARMEN Espinoza.
--- NOTE | 2023-12-27 09:55 | P.PNNP_ITS ---
Progress Note: A&P Assessment and Plan (1) LINDSEY (acute kidney injury): Code(s): N17.9 - Acute kidney failure, unspecified Status: Acute Assessment and Plan: * acute kidney injury on top of chronic kidney disease. * complicated by significant azotemia, diuretic resistance, and anasarca * minimal response to IV diuretics as well * Now he is back on dialysis * probably end-stage kidney disease. Will let Dr Vargas decide when that diagnosis takes place. * numbers look better having been dialyzed. * Dry ultrafiltration today to get more fluid off * outpatient dialysis being arranged (2) Chronic kidney disease, stage IV (severe): Code(s): N18.4 - Chronic kidney disease, stage 4 (severe) Status: Chronic Assessment and Plan: * due to biopsy proven diabetic and hypertensive nephrosclerosis * renal function is further complicated by his fluid status: * lower creatinine due to fluid overload/dilution and higher creatinine due to diuresis to attain relative euvolemia * outpatient evaluation to date demonstrates a normal renal ultrasound, moderate proteinuria, and negative serological studies * His creatinine was running ~ 1.9 - 2.6mg/dl but worsened in July 2023 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 (3) Bacteremia: Code(s): R78.81 - Bacteremia Status: Acute Assessment and Plan: * resolved * noted positive blood culture (one set of of 2 from 12/19) * organism noted: Micrococcus luteus * suspect contamination - repeat cultures negative (4) Anasarca: Code(s): R60.1 - Generalized edema Status: Acute Assessment and Plan: * as noted by exam on admission * complicated by diuretic resistance * no augmentation in UOP with IV diuretics * fluid removal with HD/DUF as tolerated by hemodynamics (5) Shortness of breath: Code(s): R06.02 - Shortness of breath Status: Acute Assessment and Plan: * clinically better * despite symptom, CXR clear * however, elevated BNP and evidence of volume overload * continue fluid removal with HD/DUF (6) Anemia: Code(s): D64.9 - Anemia, unspecified Status: Chronic Assessment and Plan: * due to LINDSEY, CKD, and acute illness * Epogen with HD (7) Essential (primary) hypertension: Code(s): I10 - Essential (primary) hypertension Status: Chronic Assessment and Plan: * Systolic 108 today. * in the past, has required midodrine PRN with dialysis due to intradialytic hypotension * He has midodrine ordered. He is not on any antihypertensives. (8) Diabetes: Code(s): E11.9 - Type 2 diabetes mellitus without complications Status: Chronic Assessment and Plan: * glycemic control per hospitalists Subjective Date/time seen: 12/27/23 09:55 Interval history: Khalif is feeling okay today. He still has a lot of swelling he is scheduled for dialysis today Exam Narrative: General: WD/WN male in NAD Heart: normal S1 and S2; IRRR, no rub or gallop Lungs: clear anteriorly; decreased at bases Abdomen: soft, nontender, nondistended, positive bowel sounds Extremities: no cyanosis or clubbing; 1+ edema (present in RUE, bilateral LEs in things/calves/kness, upper/lowe
--- NOTE | 2023-12-27 09:55 | PM.PNNEP ---
Progress Note: A&P Assessment and Plan (1) LINDSEY (acute kidney injury): Code(s): N17.9 - Acute kidney failure, unspecified Status: Acute Assessment and Plan: acute kidney injury on top of chronic kidney disease. complicated by significant azotemia, diuretic resistance, and anasarca minimal response to IV diuretics as well Now he is back on dialysis probably end-stage kidney disease. Will let Dr Vargas decide when that diagnosis takes place. numbers look better having been dialyzed. Dry ultrafiltration today to get more fluid off outpatient dialysis being arranged (2) Chronic kidney disease, stage IV (severe): Code(s): N18.4 - Chronic kidney disease, stage 4 (severe) Status: Chronic Assessment and Plan: due to biopsy proven diabetic and hypertensive nephrosclerosis renal function is further complicated by his fluid status: lower creatinine due to fluid overload/dilution and higher creatinine due to diuresis to attain relative euvolemia outpatient evaluation to date demonstrates a normal renal ultrasound, moderate proteinuria, and negative serological studies His creatinine was running ~ 1.9 - 2.6mg/dl but worsened in July 2023 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 (3) Bacteremia: Code(s): R78.81 - Bacteremia Status: Acute Assessment and Plan: resolved noted positive blood culture (one set of of 2 from 12/19) organism noted: Micrococcus luteus suspect contamination - repeat cultures negative (4) Anasarca: Code(s): R60.1 - Generalized edema Status: Acute Assessment and Plan: as noted by exam on admission complicated by diuretic resistance no augmentation in UOP with IV diuretics fluid removal with HD/DUF as tolerated by hemodynamics (5) Shortness of breath: Code(s): R06.02 - Shortness of breath Status: Acute Assessment and Plan: clinically better despite symptom, CXR clear however, elevated BNP and evidence of volume overload continue fluid removal with HD/DUF (6) Anemia: Code(s): D64.9 - Anemia, unspecified Status: Chronic Assessment and Plan: due to LINDSEY, CKD, and acute illness Epogen with HD (7) Essential (primary) hypertension: Code(s): I10 - Essential (primary) hypertension Status: Chronic Assessment and Plan: Systolic 108 today. in the past, has required midodrine PRN with dialysis due to intradialytic hypotension He has midodrine ordered. He is not on any antihypertensives. (8) Diabetes: Code(s): E11.9 - Type 2 diabetes mellitus without complications Status: Chronic Assessment and Plan: glycemic control per hospitalists Subjective Date/time seen: 12/27/23 09:55 Interval history: Khalif is feeling okay today. He still has a lot of swelling he is scheduled for dialysis today Exam Narrative: General: WD/WN male in NAD Heart: normal S1 and S2; IRRR, no rub or gallop Lungs: clear anteriorly; decreased at bases Abdomen: soft, nontender, nondistended, positive bowel sounds Extremities: no cyanosis or clubbing; 1+ edema (present in RUE, bilateral LEs in things/calves/kness, upper/lower abdomen, periorbital area) Skin: no rash or subcu nodules Objective Data Vital Signs Vital Signs: Vital Signs - 24 hr 12/26/23 10:00 12/26/23 10:15 12/26/23 11:00 Temperature Pulse Rate 55 L 58 L 52 L Respiratory Rate Blood Pressure 141/77 H 119/64 124/24 L Pulse Oximetry Oxygen Delivery 12/26/23 11:15 12/26/23 12:00 12/26/23 12:15 Temperature Pulse Rate 58 L 60 65 Respiratory Rate Blood Pressure 126/67 115/71 122/75 Pulse Oximetry Oxygen Delivery 12/26/23 1
[2023-12-27] MEDS: HEPARIN SODIUM 1,000 UNITS/ML VIAL 5000 UNITS (12:09)
--- NOTE | 2023-12-27 12:40 | PC.NURSE ---
Patient returned to floor from dialysis via bed. No complaints at this time.
[2023-12-27] MEDS: allopurinoL 100 MG TABLET PO (13:24)
[2023-12-27] MEDS: CHOLECALCIFEROL 1,000 UNITS TABLET 2000 UNITS PO (13:24)
[2023-12-27] MEDS: CYANOCOBALAMIN 1,000 MCG TABLET 1000 MCG PO (13:24)
[2023-12-27] MEDS: LINEZOLID 600 MG TABLET PO ×2 (13:24→20:28)
[2023-12-27] MEDS: APIXABAN 2.5 MG TABLET PO ×2 (13:24→20:28)
[2023-12-27] MEDS: SENNA/DOCUSATE SODIUM TABLET 1 TAB PO (13:25)
[2023-12-27] MEDS: ATORVASTATIN 10 MG TABLET PO (13:25)
[2023-12-27 13:32] LABS: Glucose Point of Care 179 mg/dl (65-105)
[2023-12-27 17:12] LABS: Glucose Point of Care 180 mg/dl (65-105)
[2023-12-27] MEDS: guaiFENesin/DEXTROMETHORPHAN 10 ML UDC PO (20:27)
[2023-12-27 20:55] LABS: Glucose Point of Care 206 mg/dl (65-105)
[2023-12-28 05:02] LABS: Hematocrit 33.6 % (42.0-52.0); Hemoglobin 10.4 g/dL (14.0-18.0); Mean Corpuscular Hemoglobin 29.8 pg (26-34); Mean Corpuscular Volume 96.3 fl (80-100); Mean Platelet Volume 12.1 fl (7.4-10.4); Platelet Count Result 116 k/mm3 (150-375); Red Blood Count 3.49 M/mm3 (4.6-6.20); Red Cell Distribution Width 17.8 % (11.5-14.5); White Blood Count 6.7 K/mm3 (4.5-10.0)
[2023-12-28 05:16] LABS: Albumin Level 2.9 g/dL (3.5-5.1); Anion Gap 8 mmol/L (4-12); Blood Urea Nitrogen 58 mg/dL (9-20); Calcium 7.9 mg/dL (8.4-10.2); Carbon Dioxide 25 mmol/L (22-30); Chloride 103 mmol/L (98-107); Estimated CRCL calculation 13 ml/min; Estimated Glomerular Filt Rate 13; Glucose 151 mg/dL (65-110); Phosphorus 4.2 mg/dL (2.5-4.5); Sodium 136 mmol/L (137-145)
[2023-12-28 05:39] VITALS: BP 118/65; PULSE 83; RESP 18; TEMP 36.4; O2SAT 98
[2023-12-28 08:00] VITALS: BP 120/62; PULSE 80; RESP 18; TEMP 36.5; O2SAT 98
[2023-12-28 08:05] LABS: Glucose Point of Care 167 mg/dl (65-105)
[2023-12-28] MEDS: SENNA/DOCUSATE SODIUM TABLET 1 TAB PO (09:08)
[2023-12-28] MEDS: CHOLECALCIFEROL 1,000 UNITS TABLET 2000 UNITS PO (09:08)
[2023-12-28] MEDS: LINEZOLID 600 MG TABLET PO ×2 (09:08→20:43)
[2023-12-28] MEDS: APIXABAN 2.5 MG TABLET PO ×2 (09:08→20:43)
[2023-12-28] MEDS: ATORVASTATIN 10 MG TABLET PO (09:08)
[2023-12-28] MEDS: calcitrioL 0.25 MCG CAPSULE PO (09:08)
[2023-12-28] MEDS: CYANOCOBALAMIN 1,000 MCG TABLET 1000 MCG PO (09:08)
[2023-12-28] MEDS: allopurinoL 100 MG TABLET PO (09:09)
--- NOTE | 2023-12-28 09:53 | P.PNNP_ITS ---
Progress Note: A&P Assessment and Plan (1) LINDSEY (acute kidney injury): Code(s): N17.9 - Acute kidney failure, unspecified Status: Acute Assessment and Plan: * acute kidney injury on top of chronic kidney disease. * complicated by significant azotemia, diuretic resistance, and anasarca * minimal response to IV diuretics as well * dialysis restarted. * He is gradually better (2) Chronic kidney disease, stage IV (severe): Code(s): N18.4 - Chronic kidney disease, stage 4 (severe) Status: Chronic Assessment and Plan: * due to biopsy proven diabetic and hypertensive nephrosclerosis * now ESRD ? (3) Bacteremia: Code(s): R78.81 - Bacteremia Status: Acute Assessment and Plan: * resolved * noted positive blood culture (one set of of 2 from 12/19) * organism noted: Micrococcus luteus * suspect contamination - repeat cultures negative (4) Anasarca: Code(s): R60.1 - Generalized edema Status: Acute Assessment and Plan: * as noted by exam on admission * gradually improved with dialysis (5) Shortness of breath: Code(s): R06.02 - Shortness of breath Status: Acute Assessment and Plan: * clinically better (6) Anemia: Code(s): D64.9 - Anemia, unspecified Status: Chronic Assessment and Plan: * due to LINDSEY, CKD, and acute illness * Epogen with HD (7) Essential (primary) hypertension: Code(s): I10 - Essential (primary) hypertension Status: Chronic Assessment and Plan: * Systolic 120 today. (8) Diabetes: Code(s): E11.9 - Type 2 diabetes mellitus without complications Status: Chronic Assessment and Plan: * glycemic control per hospitalists Subjective Date/time seen: 12/28/23 09:53 Interval history: patient is feeling okay. Did well in dialysis yesterday. 4L removed Exam Narrative: General: WD/WN male in NAD Heart: normal S1 and S2; IRRR, no rub or gallop Lungs: clear Abdomen: soft, nontender, nondistended, positive bowel sounds Extremities: 1-2 + edema Skin: no rash or subcu nodules Extrem: General: edema Objective Data Vital Signs Vital Signs: Vital Signs - 24 hr 12/27/23 10:00 12/27/23 10:15 12/27/23 10:30 Temperature Pulse Rate 54 L 54 L 54 L Respiratory Rate Blood Pressure 111/66 113/71 109/64 Pulse Oximetry Oxygen Delivery 12/27/23 10:45 12/27/23 11:00 12/27/23 11:15 Temperature Pulse Rate 55 L 54 L 48 L Respiratory Rate Blood Pressure 124/79 100/64 121/76 Pulse Oximetry Oxygen Delivery 12/27/23 11:30 12/27/23 11:45 12/27/23 11:45 Temperature Pulse Rate 50 L 48 L 48 L Respiratory Rate Blood Pressure 108/65 117/65 117/65 Pulse Oximetry Oxygen Delivery 12/27/23 11:55 12/27/23 12:05 12/27/23 16:00 Temperature 97.3 F L 97.7 F Pulse Rate 49 L 46 L 62 Respiratory Rate 16 18 Blood Pressure 125/70 119/68 115/66 Pulse Oximetry 100 97 Oxygen Delivery 12/27/23
--- NOTE | 2023-12-28 09:53 | PM.PNNEP ---
Progress Note: A&P Assessment and Plan (1) LINDSEY (acute kidney injury): Code(s): N17.9 - Acute kidney failure, unspecified Status: Acute Assessment and Plan: acute kidney injury on top of chronic kidney disease. complicated by significant azotemia, diuretic resistance, and anasarca minimal response to IV diuretics as well dialysis restarted. He is gradually better (2) Chronic kidney disease, stage IV (severe): Code(s): N18.4 - Chronic kidney disease, stage 4 (severe) Status: Chronic Assessment and Plan: due to biopsy proven diabetic and hypertensive nephrosclerosis now ESRD ? (3) Bacteremia: Code(s): R78.81 - Bacteremia Status: Acute Assessment and Plan: resolved noted positive blood culture (one set of of 2 from 12/19) organism noted: Micrococcus luteus suspect contamination - repeat cultures negative (4) Anasarca: Code(s): R60.1 - Generalized edema Status: Acute Assessment and Plan: as noted by exam on admission gradually improved with dialysis (5) Shortness of breath: Code(s): R06.02 - Shortness of breath Status: Acute Assessment and Plan: clinically better (6) Anemia: Code(s): D64.9 - Anemia, unspecified Status: Chronic Assessment and Plan: due to LINDSEY, CKD, and acute illness Epogen with HD (7) Essential (primary) hypertension: Code(s): I10 - Essential (primary) hypertension Status: Chronic Assessment and Plan: Systolic 120 today. (8) Diabetes: Code(s): E11.9 - Type 2 diabetes mellitus without complications Status: Chronic Assessment and Plan: glycemic control per hospitalists Subjective Date/time seen: 12/28/23 09:53 Interval history: patient is feeling okay. Did well in dialysis yesterday. 4L removed Exam Narrative: General: WD/WN male in NAD Heart: normal S1 and S2; IRRR, no rub or gallop Lungs: clear Abdomen: soft, nontender, nondistended, positive bowel sounds Extremities: 1-2 + edema Skin: no rash or subcu nodules Extrem: General: edema Objective Data Vital Signs Vital Signs: Vital Signs - 24 hr 12/27/23 10:00 12/27/23 10:15 12/27/23 10:30 Temperature Pulse Rate 54 L 54 L 54 L Respiratory Rate Blood Pressure 111/66 113/71 109/64 Pulse Oximetry Oxygen Delivery 12/27/23 10:45 12/27/23 11:00 12/27/23 11:15 Temperature Pulse Rate 55 L 54 L 48 L Respiratory Rate Blood Pressure 124/79 100/64 121/76 Pulse Oximetry Oxygen Delivery 12/27/23 11:30 12/27/23 11:45 12/27/23 11:45 Temperature Pulse Rate 50 L 48 L 48 L Respiratory Rate Blood Pressure 108/65 117/65 117/65 Pulse Oximetry Oxygen Delivery 12/27/23 11:55 12/27/23 12:05 12/27/23 16:00 Temperature 97.3 F L 97.7 F Pulse Rate 49 L 46 L 62 Respiratory Rate 16 18 Blood Pressure 125/70 119/68 115/66 Pulse Oximetry 100 97 Oxygen Delivery 12/27/23 19:29 12/27/23 20:00 12/28/23 05:39 Temperature 97.5 F L 97.6 F Pulse Rate 60 83 Respiratory Rate 18 18 Blood Pressure 110/69 118/65 Pulse Oximetry 100 98 Oxygen Delivery Room Air 12/28/23 08:00 12/28/23 08:17 Temperature 97.7 F Pulse Rate 80 Respiratory Rate 18 Blood Pressure 120/62 Pulse Oximetry 98 Oxygen Delivery Room Air Intake/Output Intake/Output: Intake & Output 12/25/23 12/26/23 12/27/23 12/28/23 23:59 23:59 23:59 23:59 Intake Total 683 972 5029 360 Output Total 160 2600 4008 Balance 556 -5032 -3447 360 Meds/Results Medications: Active Medications Generic Name Dose Route Start Last Admin Trade Name Freq PRN Reason Stop Dose Admin Albuterol 2 puff 12/18/23 18:26 Albuterol Sulfate (*Sp) Aerosol 1 Puff INHALATION Q6HRT PRN Shortness Of Breath Allopurinol 100 mg 12/19/23 09:00 12/28/23 09:09 Allopurinol 100 Mg
[2023-12-28 12:21] LABS: Glucose Point of Care 191 mg/dl (65-105)
--- NOTE | 2023-12-28 13:46 | PM.IMPN ---
Progress Note: A&P Assessment and Plan (1) Acute on chronic kidney failure: Qualifiers: Acute renal failure type: unspecified Chronic kidney disease stage: stage 4 (severe) Qualified Code(s): N17.9 - Acute kidney failure, unspecified; N18.4 - Chronic kidney disease, stage 4 (severe) Code(s): N17.9 - Acute kidney failure, unspecified; N18.9 - Chronic kidney disease, unspecified Status: Chronic (2) Anasarca: Code(s): R60.1 - Generalized edema Status: Acute (3) Bacteremia: Code(s): R78.81 - Bacteremia Status: Acute (4) Encephalopathy: Code(s): G93.40 - Encephalopathy, unspecified Status: Acute (5) Anemia: Code(s): D64.9 - Anemia, unspecified Status: Chronic (6) Thrombocytopenia: Code(s): D69.6 - Thrombocytopenia, unspecified Status: Acute (7) Atrial fibrillation: Code(s): I48.91 - Unspecified atrial fibrillation Status: Acute (8) Essential (primary) hypertension: Code(s): I10 - Essential (primary) hypertension Status: Chronic (9) Hypertension associated with diabetes: Code(s): E11.59 - Type 2 diabetes mellitus with other circulatory complications; I15.2 - Hypertension secondary to endocrine disorders Status: Chronic (10) Congestive heart failure: Qualifiers: Heart failure type: diastolic Heart failure chronicity: acute on chronic Qualified Code(s): I50.33 - Acute on chronic diastolic (congestive) heart failure Code(s): I50.9 - Heart failure, unspecified Status: Chronic (11) Diabetes: Code(s): E11.9 - Type 2 diabetes mellitus without complications Status: Chronic (12) Hyperbilirubinemia: Code(s): E80.6 - Other disorders of bilirubin metabolism Status: Acute Plan 83-year-old male with a past medical history CKD stage IIIB previously requiring dialysis for approximately 3 months due to diuretic resistance and fluid overload (discontinued 09/29/2023), hypertension, AFib on Eliquis, iron deficiency anemia, pulmonary hypertension, [id number] diabetes mellitus with neuropathy, hyperlipidemia, CHF, BPH, who presents with exertional shortness of breath lower extremity swelling and periorbital edema. Upon further questioning he also reports abdominal and soft tissue swelling of the back. In [facility] he had a elevated serum creatinine again. Admitted on 12/18/2023. LINDSEY on CKD stage 4 -as noted by admission creatinine. -complicated by azotemia, diuretic resistance, anasarca and minimal response IV diuretics -patient agreed to dialysis again and a left femoral Pasquale catheter was placed on 12/18. -on 12/22, he received an additional session of dialysis and femoral Pasquale catheter removed after HD. Held off on placing a tunneled dialysis catheter due to bacteremia -dialysis and electrolyte balance management per Nephrology. Patient had tunneled catheter placed 12/24. Tolerating HD. HD again tomorrow and then placement vs home Anasarca -slowly improving. Continue dialysis to improve fluid status Bacteremia Patient became altered on 12/19 when febrile and blood cultures x2 taken. Cefepime metronidazole and vancomycin started. Metronidazole discontinued on 12/21. Blood culture 12/19 1 bottle growing micrococcus Repeat blood cultures on 12/21 NGTD Micrococcus only in one bottle but had fever and AMS to suggest a real infection. Repeat BCx NGTD Continue abx treatment to complete a course; discussed with PharmD ID and abx adjusted. Acute encephalopathy Transient over the afternoon of 12/19. [place] related to the fever 101? F. Resolved when afebrile Head CT was unremarkable. Urinalysis not indicative of infection. Chest CT demonstrating cardiomegaly, pulmonary arterial hypertension, small bilateral pleural effusions, moderate ascites and body wall edema. Discontinued gabapentin and tramadol Mental status better. Suspect more likely related to fever and bact
[2023-12-28 16:00] VITALS: BP 109/57; PULSE 65; RESP 18; TEMP 36.6; O2SAT 99
[2023-12-28] MEDS: BUMETANIDE 1 MG TABLET 2 MG PO (16:45)
[2023-12-28 17:44] LABS: Glucose Point of Care 169 mg/dl (65-105)
[2023-12-28 19:41] VITALS: BP 104/59; PULSE 60; RESP 18; TEMP 36.4; O2SAT 97
[2023-12-28 20:00] VITALS: PULSE 60; RESP 18; O2SAT 97
[2023-12-28 20:45] LABS: Glucose Point of Care 176 mg/dl (65-105)
[2023-12-29] VITALS (22 sets, daily range): BP systolic 111–151; BP diastolic 44–90; PULSE 49–80; RESP 16–18; TEMP 36.2–37.6; O2SAT 96–100
[2023-12-29 06:12] LABS: Basophils Percent Auto 0.7 % (0.2-1.2); Eosinophils Absolute Auto 0.1 K/mm3 (0-0.3); Eosinophils Percent Auto 1.3 % (0-4.4); Hematocrit 32.4 % (42.0-52.0); Hemoglobin 10.1 g/dL (14.0-18.0); Immature Granulocyte Absolute 0.03 K/mm3 (0.00-0.031); Immature Granulocyte Percent A 0.6 % (0-0.5); Lymphocytes Percent Auto 16.7 % (18.3-44.2); Mean Corpuscular HGB Conc 31.2 g/dl (32-36); Mean Corpuscular Hemoglobin 30.1 pg (26-34); Mean Corpuscular Volume 96.7 fl (80-100); Mean Platelet Volume 12.6 fl (7.4-10.4); Monocytes Absolute Auto 0.8 K/mm3 (0.1-0.6); Monocytes Percent Auto 14.5 % (2.6-8.5); Neutrophils Absolute Auto 3.6 K/mm3 (1.3-6.7); Neutrophils Percent Auto 66.2 % (45.5-73.1); Platelet Count Result 111 k/mm3 (150-375); Red Blood Count 3.35 M/mm3 (4.6-6.20); Red Cell Distribution Width 18.1 % (11.5-14.5); White Blood Count 5.4 K/mm3 (4.5-10.0)
[2023-12-29 06:39] LABS: Albumin Level 3.1 g/dL (3.5-5.1); Anion Gap 11 mmol/L (4-12); Blood Urea Nitrogen 66 mg/dL (9-20); Calcium 7.8 mg/dL (8.4-10.2); Carbon Dioxide 22 mmol/L (22-30); Chloride 101 mmol/L (98-107); Creatine Kinase 37 U/L (55-170); Estimated CRCL calculation 12 ml/min; Estimated Glomerular Filt Rate 11; Glucose 139 mg/dL (65-110); Phosphorus 4.9 mg/dL (2.5-4.5); Potassium 3.9 mmol/L (3.4-5.0); Sodium 134 mmol/L (137-145)
[2023-12-29 08:04] LABS: Glucose Point of Care 139 mg/dl (65-105)
[2023-12-29] MEDS: CYANOCOBALAMIN 1,000 MCG TABLET 1000 MCG PO (10:03)
[2023-12-29] MEDS: LINEZOLID 600 MG TABLET PO ×2 (10:03→21:44)
[2023-12-29] MEDS: CHOLECALCIFEROL 1,000 UNITS TABLET 2000 UNITS PO (10:04)
[2023-12-29] MEDS: ATORVASTATIN 10 MG TABLET PO (10:04)
[2023-12-29] MEDS: FERROUS SULFATE 325 MG TABLET DR 650 MG PO (10:04)
[2023-12-29] MEDS: SENNA/DOCUSATE SODIUM TABLET 1 TAB PO (10:04)
[2023-12-29] MEDS: allopurinoL 100 MG TABLET PO (10:04)
[2023-12-29] MEDS: APIXABAN 2.5 MG TABLET PO ×2 (10:04→21:44)
[2023-12-29] MEDS: calcitrioL 0.25 MCG CAPSULE PO (10:06)
[2023-12-29 11:57] LABS: Glucose Point of Care 163 mg/dl (65-105)
[2023-12-29] MEDS: MIDODRINE HCL 10 MG TABLET PO (12:52)
--- NOTE | 2023-12-29 13:45 | P.PNNP_ITS ---
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 * resumed on [employer]/hemodialysis with clinic al improvement * HD today * continue M/W/F dialysis schedule (2) Anasarca: Code(s): R60.1 - Generalized edema Status: Acute Assessment and Plan: * as noted by exam on admission * gradually improved with dialysis * continue current therapy (3) Shortness of breath: Code(s): R06.02 - Shortness of breath Status: Acute Assessment and Plan: * clinically better with dialysis (4) Anemia: Code(s): D64.9 - Anemia, unspecified Status: Chronic Assessment and Plan: * due to CKD with progression to ESRD and acute illness * Epogen with HD * follow trend of H/H (5) Essential (primary) hypertension: Code(s): I10 - Essential (primary) hypertension Status: Chronic Assessment and Plan: * reasonable control * follow trend of hemodynamics (6) Diabetes: Code(s): E11.9 - Type 2 diabetes mellitus without complications Status: Chronic Assessment and Plan: * glycemic control per hospitalists Will continue to follow. Subjective Date/time seen: 12/29/23 13:45 Interval history: Follow-up for acute kidney injury/acute renal failure on chronic kidney disease (with progression to ESRD) and anasarca. Chart reviewed since last seen -- tolerating dialysis treatment at the time of my visit (seen on HD at 1:35PM); patient is reconsidering rehab versus SNF as he is aware that his ambulation is not as good as it should be -- otherwise, no apparent distress noted; no events overnight or earlier this morning. Exam Narrative: General: WD/WN male in NAD Heart: normal S1 and S2; IRRR, no rub Lungs: clear anteriorly Abdomen: soft, nontender, nondistended, positive bowel sounds Extremities: no cyanosis or clubbing, 1 - 2+ edema Skin: warm and dry Objective Data Vital Signs Vital Signs: Vital Signs Temp Pulse Resp BP Pulse Ox O2 Del Method FiO2 12/29/23 13:45 57 L 139/90 12/29/23 13:30 56 L 114/73 12/29/23 13:15 65 125/78 12/29/23 14:00 55 L 128/79 12/29/23 12:50 97.4 F L 58 L 16 122/77 96 12/29/23 13:07 62 111/74 12/29/23 08:30 Room Air 12/29/23 05:47 97.6 F 59 L 18 132/70 97 12/28/23 20:00 60 18 97 Room Air 0 12/28/23 19:41 97.5 F L 60 18 104/59 L 97 Intake/Output Intake/Output: Intake & Output 12/26/23 12/27/23 12/28/23 12/29/23 23:59 23:59 23:59 23:59 Intake Total 680 1070 960 480 Output Total 2600 4003 135 3000 Balance -0837 -5680 871 -8971 Meds/Results Medications: Active Medic
--- NOTE | 2023-12-29 13:45 | PM.PNNEP ---
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 resumed on [employer]/hemodialysis with clinic al improvement HD today continue M/W/F dialysis schedule (2) Anasarca: Code(s): R60.1 - Generalized edema Status: Acute Assessment and Plan: as noted by exam on admission gradually improved with dialysis continue current therapy (3) Shortness of breath: Code(s): R06.02 - Shortness of breath Status: Acute Assessment and Plan: clinically better with dialysis (4) Anemia: Code(s): D64.9 - Anemia, unspecified Status: Chronic Assessment and Plan: due to CKD with progression to ESRD and acute illness Epogen with HD follow trend of H/H (5) Essential (primary) hypertension: Code(s): I10 - Essential (primary) hypertension Status: Chronic Assessment and Plan: reasonable control follow trend of hemodynamics (6) Diabetes: Code(s): E11.9 - Type 2 diabetes mellitus without complications Status: Chronic Assessment and Plan: glycemic control per hospitalists Will continue to follow. Subjective Date/time seen: 12/29/23 13:45 Interval history: Follow-up for acute kidney injury/acute renal failure on chronic kidney disease (with progression to ESRD) and anasarca. Chart reviewed since last seen -- tolerating dialysis treatment at the time of my visit (seen on HD at 1:35PM); patient is reconsidering rehab versus SNF as he is aware that his ambulation is not as good as it should be -- otherwise, no apparent distress noted; no events overnight or earlier this morning. Exam Narrative: General: WD/WN male in NAD Heart: normal S1 and S2; IRRR, no rub Lungs: clear anteriorly Abdomen: soft, nontender, nondistended, positive bowel sounds Extremities: no cyanosis or clubbing, 1 - 2+ edema Skin: warm and dry Objective Data Vital Signs Vital Signs: Vital Signs Temp Pulse Resp BP Pulse Ox O2 Del Method FiO2 12/29/23 13:45 57 L 139/90 12/29/23 13:30 56 L 114/73 12/29/23 13:15 65 125/78 12/29/23 14:00 55 L 128/79 12/29/23 12:50 97.4 F L 58 L 16 122/77 96 12/29/23 13:07 62 111/74 12/29/23 08:30 Room Air 12/29/23 05:47 97.6 F 59 L 18 132/70 97 12/28/23 20:00 60 18 97 Room Air 0 12/28/23 19:41 97.5 F L 60 18 104/59 L 97 Intake/Output Intake/Output: Intake & Output 12/26/23 12/27/23 12/28/23 12/29/23 23:59 23:59 23:59 23:59 Intake Total 680 1070 960 480 Output Total 2600 4003 135 3000 Balance -6670 -293 825 -8140 Meds/Results Medications: Active Medications Generic Name Dose Route Start Last Admin Trade Name Freq PRN Reason Stop Dose Admin Albuterol 2 puff 12/18/23 18:26 Albuterol Sulfate (*Sp) Aerosol 1 Puff INHALATION Q6HRT PRN Shortness Of Breath Allopurinol 100 mg 12/19/23 09:00 12/29/23 10:04 Allopurinol 100 Mg Tablet PO 100 mg DAILY CESAR Administration Apixaban 2.5 mg 12/18/23 21:00 12/29/23 10:04 Apixaban 2.5 Mg Tablet PO 2.5 mg Q12HR CESAR Administration Atorvastatin Calcium 10 mg 12/19/23 09:00 12/29/23 10:04 Atorvastatin 10 Mg Tablet PO 10 mg DAILY CESAR Administration Bumetanide 2 mg 12/30/23 09:00 Bumetanide 1 Mg Tablet PO JackieuThSa@0900,1700 [facility] Calcitriol 0.25 mcg 12/19/23 09:00 12/29/23 10:06 Calcitriol 0.25 Mcg Capsule
--- NOTE | 2023-12-29 16:15 | PM.IMPN ---
Progress Note: A&P Assessment and Plan (1) Acute on chronic kidney failure: Qualifiers: Acute renal failure type: unspecified Chronic kidney disease stage: stage 4 (severe) Qualified Code(s): N17.9 - Acute kidney failure, unspecified; N18.4 - Chronic kidney disease, stage 4 (severe) Code(s): N17.9 - Acute kidney failure, unspecified; N18.9 - Chronic kidney disease, unspecified Status: Chronic (2) Anasarca: Code(s): R60.1 - Generalized edema Status: Acute (3) Bacteremia: Code(s): R78.81 - Bacteremia Status: Acute (4) Encephalopathy: Code(s): G93.40 - Encephalopathy, unspecified Status: Acute (5) Anemia: Code(s): D64.9 - Anemia, unspecified Status: Chronic (6) Thrombocytopenia: Code(s): D69.6 - Thrombocytopenia, unspecified Status: Acute (7) Atrial fibrillation: Code(s): I48.91 - Unspecified atrial fibrillation Status: Acute (8) Essential (primary) hypertension: Code(s): I10 - Essential (primary) hypertension Status: Chronic (9) Hypertension associated with diabetes: Code(s): E11.59 - Type 2 diabetes mellitus with other circulatory complications; I15.2 - Hypertension secondary to endocrine disorders Status: Chronic (10) Congestive heart failure: Qualifiers: Heart failure chronicity: acute on chronic Heart failure type: diastolic Qualified Code(s): I50.33 - Acute on chronic diastolic (congestive) heart failure Code(s): I50.9 - Heart failure, unspecified Status: Chronic (11) Diabetes: Code(s): E11.9 - Type 2 diabetes mellitus without complications Status: Chronic (12) Hyperbilirubinemia: Code(s): E80.6 - Other disorders of bilirubin metabolism Status: Acute Plan 83-year-old male with a past medical history CKD stage IIIB previously requiring dialysis for approximately 3 months due to diuretic resistance and fluid overload (discontinued 09/29/2023), hypertension, AFib on Eliquis, iron deficiency anemia, pulmonary hypertension, [id number]-[id number] diabetes mellitus with neuropathy, hyperlipidemia, CHF, BPH, who presents with exertional shortness of breath lower extremity swelling and periorbital edema. Upon further questioning he also reports abdominal and soft tissue swelling of the back. In [facility] he had a elevated serum creatinine again. Admitted on 12/18/2023. LINDSEY on CKD stage 4 -as noted by admission creatinine. -complicated by azotemia, diuretic resistance, anasarca and minimal response IV diuretics -patient agreed to dialysis again and a left femoral Pasquale catheter was placed on 12/18. -on 12/22, he received an additional session of dialysis and femoral Pasquale catheter removed after HD. Held off on placing a tunneled dialysis catheter due to bacteremia -dialysis and electrolyte balance management per Nephrology. Patient had tunneled catheter placed 12/24. Tolerating HD. HD today and then placement vs home. He is now wanting to go to SNF so will let care coordination know. Anasarca -slowly improving. Continue dialysis to improve fluid status Bacteremia Patient became altered on 12/19 when febrile and blood cultures x2 taken. Chest CT demonstrating cardiomegaly, pulmonary arterial hypertension, small bilateral pleural effusions, moderate ascites and body wall edema. Cefepime metronidazole and vancomycin started. Metronidazole discontinued on 12/21. Blood culture 12/19 1 bottle growing micrococcus Repeat blood cultures on 12/21 NGTD Micrococcus only in one bottle but had fever and AMS to suggest a real infection. Repeat BCx NGTD Continue abx treatment to complete a course; discussed with PharmD ID and abx adjusted. Acute encephalopathy Transient over the afternoon of 12/19. [place] related to the fever 101? F. Resolved when afebrile Head CT was unremarkable. Urinalysis not indicative of infection. Discontinued gabapentin and tramadol Me
[2023-12-29 17:00] LABS: Glucose Point of Care 128 mg/dl (65-105)
[2023-12-29 20:04] LABS: Glucose Point of Care 222 mg/dl (65-105)
[2023-12-30 04:23] VITALS: BP 121/58; PULSE 67; RESP 18; TEMP 36.4; O2SAT 100
[2023-12-30 05:59] LABS: Basophils Absolute Auto 0.1 K/mm3 (0.0-0.1); Basophils Percent Auto 1.1 % (0.2-1.2); Eosinophils Absolute Auto 0.1 K/mm3 (0-0.3); Eosinophils Percent Auto 1.1 % (0-4.4); Hemoglobin 10.6 g/dL (14.0-18.0); Immature Granulocyte Absolute 0.03 K/mm3 (0.00-0.031); Immature Granulocyte Percent A 0.6 % (0-0.5); Lymphocytes Absolute Auto 0.86 K/mm3 (0.9-3.2); Lymphocytes Percent Auto 15.9 % (18.3-44.2); Mean Corpuscular HGB Conc 31.2 g/dl (32-36); Mean Corpuscular Volume 96.3 fl (80-100); Mean Platelet Volume 12.3 fl (7.4-10.4); Monocytes Absolute Auto 0.8 K/mm3 (0.1-0.6); Monocytes Percent Auto 14.6 % (2.6-8.5); Neutrophils Absolute Auto 3.6 K/mm3 (1.3-6.7); Neutrophils Percent Auto 66.7 % (45.5-73.1); Platelet Count Result 131 k/mm3 (150-375); Red Blood Count 3.53 M/mm3 (4.6-6.20); Red Cell Distribution Width 18.8 % (11.5-14.5); White Blood Count 5.4 K/mm3 (4.5-10.0)
[2023-12-30 06:23] LABS: Alanine Aminotransferase 10 U/L (6-50); Albumin Level 3.1 g/dL (3.5-5.1); Alkaline Phosphatase 290 U/L (38-126); Anion Gap 8 mmol/L (4-12); Aspartate Amino Transferase 26 U/L (17-59); Bilirubin,Total 1.8 mg/dL (0.2-1.3); Blood Urea Nitrogen 47 mg/dL (9-20); Calcium 7.7 mg/dL (8.4-10.2); Carbon Dioxide 25 mmol/L (22-30); Chloride 103 mmol/L (98-107); Estimated CRCL calculation 14 ml/min; Estimated Glomerular Filt Rate 14; Glucose 134 mg/dL (65-110); Potassium 3.7 mmol/L (3.4-5.0); Sodium 136 mmol/L (137-145)
[2023-12-30 08:00] VITALS: BP 101/56; PULSE 62; RESP 16; TEMP 36.6; O2SAT 97
[2023-12-30 08:17] LABS: Glucose Point of Care 135 mg/dl (65-105)
--- NOTE | 2023-12-30 08:55 | PCNWS ---
Weekly nutritional screen. Patient is tolerating current diet with adequate intake. No weight loss reported. No nutritional needs at this time.
[2023-12-30] MEDS: BUMETANIDE 1 MG TABLET 2 MG PO (09:28)
[2023-12-30] MEDS: ATORVASTATIN 10 MG TABLET PO (09:28)
[2023-12-30] MEDS: allopurinoL 100 MG TABLET PO (09:28)
[2023-12-30] MEDS: APIXABAN 2.5 MG TABLET PO (09:28)
[2023-12-30] MEDS: LINEZOLID 600 MG TABLET PO (09:29)
[2023-12-30] MEDS: SENNA/DOCUSATE SODIUM TABLET 1 TAB PO (09:29)
[2023-12-30] MEDS: CHOLECALCIFEROL 1,000 UNITS TABLET 2000 UNITS PO (09:29)
[2023-12-30] MEDS: CYANOCOBALAMIN 1,000 MCG TABLET 1000 MCG PO (09:29)
--- NOTE | 2023-12-30 10:04 | PM.PNNEP ---
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 resumed on [employer]/hemodialysis with clinical improvement HD tomorrow continue M/W/F dialysis schedule (2) Anasarca: Code(s): R60.1 - Generalized edema Status: Acute Assessment and Plan: as noted by exam on admission gradually improved with dialysis continue current therapy (3) Shortness of breath: Code(s): R06.02 - Shortness of breath Status: Acute Assessment and Plan: clinically better with dialysis (4) Anemia: Code(s): D64.9 - Anemia, unspecified Status: Chronic Assessment and Plan: due to CKD with progression to ESRD and acute illness Epogen with HD follow trend of H/H (5) Essential (primary) hypertension: Code(s): I10 - Essential (primary) hypertension Status: Chronic Assessment and Plan: reasonable control follow trend of hemodynamics (6) Diabetes: Code(s): E11.9 - Type 2 diabetes mellitus without complications Status: Chronic Assessment and Plan: glycemic control per hospitalists Will continue to follow. Subjective Date/time seen: 12/30/23 10:04 Interval history: Follow-up for acute kidney injury/acute renal failure on chronic kidney disease (with progression to ESRD) and anasarca. Tolerating dialysis treatment yesterday without any issues or problems; working with therapy as tolerated; now willing to go to rehab/facility to build up his strength as he seems to be aware that he is somewhat deconditioned; no apparent distress voiced at the time of my visit; at bedside and we discussed the situation. Exam Narrative: General: WD/WN male in NAD Heart: normal S1 and S2; IRRR, no rub Lungs: clear anteriorly Abdomen: soft, nontender, nondistended, positive bowel sounds Extremities: no cyanosis or clubbing, 1 - 2+ edema Skin: warm and intact Objective Data Vital Signs Vital Signs: Vital Signs Temp Pulse Resp BP Pulse Ox O2 Del Method 12/30/23 08:00 Room Air 12/30/23 08:00 97.9 F 62 16 101/56 L 97 12/30/23 04:23 97.5 F L 67 18 121/58 L 100 12/29/23 20:00 Room Air 12/29/23 19:42 97.9 F 54 L 18 112/50 L 100 12/29/23 17:15 97.2 F L 60 17 141/57 H 100 12/29/23 16:41 59 L 125/77 12/29/23 16:30 58 L 130/77 12/29/23 16:50 97.4 F L 55 L 16 132/75 96 12/29/23 16:25 97.2 F L 80 18 120/44 L 96 12/29/23 16:15 53 L 124/69 12/29/23 16:00 54 L 130/81 12/29/23 15:45 54 L 133/80 12/29/23 15:30 55 L 143/82 H 12/29/23 15:15 49 L 130/81 12/29/23 15:00 52 L 151/82 H 12/29/23 14:45 52 L 149/84 H 12/29/23 14:30 61 148/74 H 12/29/23 14:15 57 L 139/90 12/29/23 13:30 56 L 114/73 12/29/23 13:15 65 125/78 12/29/23 14:00 55 L 128/79 12/29/23 12:50 97.4 F L 58 L 16 122/77 96 12/29/23 13:45 59 L 127/84 12/29/23 13:07 62 111/74 Intake/Output Intake/Output: Intake & Output 12/27/23 12/28/23 12/29/23 12/30/23 23:59 23:59 23:59 23:59 Intake Total 3630 550 7427 410 Output Total 4003 135 3250 Balance -2933 825 -1930 410 Meds/Results Medications: Active Medications Generic Name Dose Route Start Last Admin Trade Name Freq PRN Reason Stop Dose Admin Albuterol 2 puff 12/18/23 18:26 Albuterol Sulfate (*Sp) Aerosol 1 Puff INHALATION Q6HRT
[2023-12-30 11:38] LABS: Glucose Point of Care 187 mg/dl (65-105)
--- NOTE | 2023-12-30 12:55 | PCOTNOTE ---
Attempted to see Patient this afternoon. Patient declined, Patient's stated he has already performed some therapy this date and he is being discharged.
[2023-12-30 13:38] LABS: SARS-CoV-2 RNA PCR Negative (Negative)
== END 2023-12-30 15:25 | DRG 673 ==
LOC: ANHED 11:06 → ANHIMU 11:29 → ANH2MED 12-23 04:43
PROVIDERS: General Practice; Internal Medicine Nephrology; Preventive Medicine Aerospace Medicine; Student in an Organized Health Care Education/Training Program; Surgery; Admitting Provider Family Medicine; Emergency Provider Nurse Practitioner Family; PCP Family Medicine; Visit Provider Internal Medicine
PROC: 06H033Z Insertion of Infusion Device into Inferior Vena Cava, Percutaneous Approach (ICD-10-PCS; principal; 2023-12-19 14:30)
PROC: 0JH63XZ Insertion of Tunneled Vascular Access Device into Chest Subcutaneous Tissue and Fascia, Percutaneous Approach (ICD-10-PCS; CPT 36908; principal; 2023-12-25 13:30)
DX: N17.9 Acute kidney failure, unspecified (principal); I50.33 Acute on chronic diastolic (congestive) heart failure; I13.2 Hypertensive heart and chronic kidney disease with heart failure and with stage 5 chronic kidney disease, or end stage renal disease; G93.40 Encephalopathy, unspecified; R78.81 Bacteremia; N18.6 End stage renal disease; Z99.2 Dependence on renal dialysis; B95.61 Methicillin susceptible Staphylococcus aureus infection as the cause of diseases classified elsewhere; D63.1 Anemia in chronic kidney disease; D69.6 Thrombocytopenia, unspecified; D50.9 Iron deficiency anemia, unspecified; D51.9 Vitamin B12 deficiency anemia, unspecified; E11.42 Type 2 diabetes mellitus with diabetic polyneuropathy; E11.22 Type 2 diabetes mellitus with diabetic chronic kidney disease; E78.2 Mixed hyperlipidemia; I27.20 Pulmonary hypertension, unspecified; I48.91 Unspecified atrial fibrillation; I07.1 Rheumatic tricuspid insufficiency; K80.20 Calculus of gallbladder without cholecystitis without obstruction; N40.0 Benign prostatic hyperplasia without lower urinary tract symptoms; Z11.52 Encounter for screening for COVID-19; Z79.01 Long term (current) use of anticoagulants; Z96.653 Presence of artificial knee joint, bilateral; Z98.41 Cataract extraction status, right eye; Z98.42 Cataract extraction status, left eye; Z96.1 Presence of intraocular lens; Z66 Do not resuscitate; Z96.82 Presence of neurostimulator
CPT/HCPCS: 36415; 36600; 70450; 71045; 71046; 71250; 74018; 76705; 76775; 77001; 80053; 80069; 80202; 81001; 81003; 81050; 82140; 82550; 82570; 82805; 82948; 83735; 83880; 84100; 84145; 84156; 84300; 84443; 84484; 85025; 85027; 85055; 85610; 85730; 85999; 86704; 86706; 87040; 87077; 87086; 87340; 87635; 92610; 93005; 93306; 93971; 97110; 97161; 97165; 97530; 99285; A9270; C1750; C1752; G0257; J0690; J0692; J1100; J1644; J1815; J1836; J1939; J2371; J2405; J2704; J3010; J3370; J3430; J7030; J7040; J7120; P9047; Q5105

== ENCOUNTER 2024-03-06 08:51 | Outpatient (CLI) | payer MEDICARE, SELFPAY ==
[2024-03-06 09:50] LABS: Alanine Aminotransferase 11 U/L (6-50); Albumin Level 3.7 g/dL (3.5-5.1); Alkaline Phosphatase 118 U/L (38-126); Anion Gap 14 mmol/L (4-12); Aspartate Amino Transferase 23 U/L (17-59); Bilirubin,Total 1.2 mg/dL (0.2-1.3); Blood Urea Nitrogen 37 mg/dL (9-20); Calcium 8.9 mg/dL (8.4-10.2); Carbon Dioxide 26 mmol/L (22-30); Chloride 96 mmol/L (98-107); Estimated Glomerular Filt Rate 14; Glucose 153 mg/dL (65-110); Potassium 4.2 mmol/L (3.4-5.0); Sodium 136 mmol/L (137-145)
[2024-03-06 09:51] LABS: Albumin Level 3.7 g/dL (3.5-5.1); Anion Gap 14 mmol/L (4-12); Blood Urea Nitrogen 38 mg/dL (9-20); Carbon Dioxide 26 mmol/L (22-30); Chloride 96 mmol/L (98-107); Estimated Glomerular Filt Rate 15; Glucose 154 mg/dL (65-110); Phosphorus 5.1 mg/dL (2.5-4.5); Potassium 4.2 mmol/L (3.4-5.0); Sodium 136 mmol/L (137-145)
[2024-03-06 10:23] LABS: Hemoglobin A1C 6.5 % (<5.7)
[2024-03-06 14:01] LABS: Parathyroid Intact 492.3 pg/mL (7.5-53.5)
== END 2024-03-06 08:52 | disposition home or self-care (01) ==
PROVIDERS: PCP Family Medicine; Visit Provider Internal Medicine Nephrology
DX: E11.22 Type 2 diabetes mellitus with diabetic chronic kidney disease (principal); I12.9 Hypertensive chronic kidney disease with stage 1 through stage 4 chronic kidney disease, or unspecified chronic kidney disease; N18.4 Chronic kidney disease, stage 4 (severe); N25.81 Secondary hyperparathyroidism of renal origin; E11.40 Type 2 diabetes mellitus with diabetic neuropathy, unspecified
CPT/HCPCS: 36415; 80053; 80069; 83036; 83970

== ENCOUNTER 2024-03-11 12:32 | Outpatient (CLI) | payer MEDICARE, SELFPAY ==
--- NOTE | ~2024-03-11 | XR_ITS ---
Clinical Indication: Cough AP and lateral views of the chest: Comparison: 12/25/2023 Findings: Stable right-sided central venous line. Stable linear scarring left midlung. Probable minim al central congestive change. Lungs are otherwise clear. No pleural effusion. Cardiomediastinal silh ouette is within normal limits. Bones and soft tissues are unremarkable. Impression: Stable linear scarring left midlung. Probable mild central congestive change. Stable support line. Reviewed, dictated and finalized at location . Impression: Stable linear scarring left midlung. Probable mild central congestive change. Stable support line.
== END 2024-03-11 12:33 | disposition home or self-care (01) ==
PROVIDERS: PCP Family Medicine; Visit Provider Physician Assistant
DX: R05.9 Cough, unspecified (principal)
CPT/HCPCS: 71046

== ENCOUNTER 2024-05-19 16:24 | Outpatient (CLI) | payer MEDICARE, SELFPAY ==
--- NOTE | ~2024-05-19 | XR_ITS ---
XR tibia fibula RT 2V Ordering provider: Phuong Martinez PA-C History: . M79.89 - Other specified soft tissue disorders . Comparison: None. FINDINGS: BONES: No acute fracture or dislocation. Lucencies seen in the distal tibia and medial malleolus whic h may be due to osteopenia but osteomyelitis cannot be excluded. Follow-up advised. JOINT SPACES: Total knee arthroplasty. Osteoarthritic changes of the ankle joint. SOFT TISSUES: Soft tissue swelling over the medial and lateral malleoli. IMPRESSION: No fracture or dislocation seen. Lucencies in the distal tibia which may be due to osteopenia but infection cannot be excluded. Clinic al correlation advised.. Reviewed, dictated and finalized at location A. IMPRESSION: No fracture or dislocation seen. Lucencies in the distal tibia which may be due to osteopenia but infection nanette ot be excluded. Clinical correlation advised..
--- NOTE | ~2024-05-19 | XR_ITS ---
EXAMINATION: XR ankle RT 2V DATE: 05/19/2024 17:25 INDICATION: Other specified soft tissue disorders. TECHNIQUE: 2 views of right ankle were obtained. COMPARISON: None. FINDINGS: Alignment is normal. No acute fracture. There is chronic heterotopic ossification distal to lateral malleolus. There is mild midfoot osteoarthritis. Soft tissue swelling is noted. IMPRESSION: 1. Mild polyarticular osteoarthritis. Reviewed, dictated and finalized at location A.
--- NOTE | ~2024-05-19 | XR_ITS ---
EXAMINATION: XR foot RT 2V DATE: 05/19/2024 17:25 INDICATION: Other specified soft tissue disorders. TECHNIQUE: 2 views of right foot were obtained. COMPARISON: None. FINDINGS: There is moderate hallux valgus. No fracture. There is severe osteoarthritis of first metat arsophalangeal joint. There is mild to moderate osteoarthritis of many of the midfoot joints and inte rphalangeal joints. Soft tissue swelling is noted. IMPRESSION: 1. Polyarticular osteoarthritis. 2. Moderate hallux valgus. Reviewed, dictated and finalized at location A.
--- NOTE | ~2024-05-19 | US_ITS ---
EXAMINATION: US venous doppler LE RT DATE: 05/19/2024 17:14 INDICATION: Other specified soft tissue disorders. Right lower limb pain and swelling. TECHNIQUE: Grayscale ultrasound images without and with compression and Doppler ultrasound images of the right lower extremity veins were obtained. COMPARISON: None. FINDINGS: The visualized portions of right common femoral vein, profunda (deep) femoral vein, femoral vein, pop liteal vein, peroneal veins, posterior tibial veins, and greater saphenous vein outflow are patent. IMPRESSION: 1. No deep venous thrombosis. Reviewed, dictated and finalized at location A.
[2024-05-19 17:43] LABS: Basophils Percent Auto 0.4 % (0.2-1.2); Eosinophils Percent Auto 0.2 % (0-4.4); Hematocrit 40.4 % (42.0-52.0); Hemoglobin 13.1 g/dL (14.0-18.0); Immature Granulocyte Absolute 0.04 K/mm3 (0.00-0.031); Immature Granulocyte Percent A 0.4 % (0-0.5); Immature Platelet Fraction Pct 7.2 % (0.9-11.2); Lymphocytes Absolute Auto 0.75 K/mm3 (0.9-3.2); Lymphocytes Percent Auto 8.1 % (18.3-44.2); Mean Corpuscular HGB Conc 32.4 g/dl (32-36); Mean Corpuscular Hemoglobin 31.2 pg (26-34); Mean Corpuscular Volume 96.2 fl (80-100); Mean Platelet Volume 11.5 fl (7.4-10.4); Monocytes Absolute Auto 1.1 K/mm3 (0.1-0.6); Neutrophils Absolute Auto 7.3 K/mm3 (1.3-6.7); Neutrophils Percent Auto 78.9 % (45.5-73.1); Platelet Count Result 59 k/mm3 (150-375); White Blood Count 9.3 K/mm3 (4.5-10.0)
[2024-05-19 18:24] LABS: Platelet Estimate Decreased (Adequate)
[2024-05-19 18:26] LABS: Anisocytosis 2+; Schistocytes Rare
[2024-05-19 18:27] LABS: Erythrocyte Sedimentation Rate 12 mm/hr (0-20)
== END 2024-05-19 16:25 | disposition home or self-care (01) ==
LOC: ANHIMG 16:28
PROVIDERS: PCP Family Medicine; Visit Provider Physician Assistant
DX: M79.89 Other specified soft tissue disorders (principal); E11.40 Type 2 diabetes mellitus with diabetic neuropathy, unspecified; M19.071 Primary osteoarthritis, right ankle and foot; M20.11 Hallux valgus (acquired), right foot
CPT/HCPCS: 36415; 73590; 73600; 73620; 85025; 85055; 85652; 93971

== ENCOUNTER 2024-05-21 16:00 | Outpatient (CLI) | payer MEDICARE, SELFPAY | END 2024-05-21 16:01 | disposition home or self-care (01) | LOC: ANHLAB 16:02 | PROVIDERS: PCP Family Medicine; Visit Provider Physician Assistant | DX: L03.90 Cellulitis, unspecified (principal) | CPT/HCPCS: 87040 ==

== ENCOUNTER 2024-07-12 09:36 | Observation (INO) | payer MEDICARE, SELFPAY ==
[2024-07-12] VITALS (49 sets, daily range): BP systolic 80–106; BP diastolic 43–65; PULSE 39–60; RESP 8–21; TEMP 36.2–37.1; O2SAT 90–100; BMI 34.0
--- NOTE | ~2024-07-12 | XR_ITS ---
EXAMINATION: XR chest 1V portable DATE: 07/14/2024 16:53 INDICATION: Fluid overload. TECHNIQUE: A single frontal view of the chest was obtained. COMPARISON: Chest 2 views 07/12/2024 FINDINGS: There is mild atelectasis in the midlung zones. No pleural effusion or pneumothorax. Cardio megaly is noted. A right internal jugular central venous catheter is seen with tip in the right atriu m. Epidural electrodes are noted. IMPRESSION: 1. Mild atelectasis in the midlung zones. 2. Cardiomegaly. Reviewed, dictated and finalized at location A. LAY COORDINATOR
--- NOTE | ~2024-07-12 | XR_ITS ---
XR chest 2V 07/12/2024 10:48 Indication: Weakness Procedure: AP view of the chest Comparison: Comparison to multiple prior studies sequentially, with oldest reviewed study dated 12/17. Findings: Cardiomegaly with interstitial edema. No pleural effusion or pneumothorax. Portacatheter ti p near the cavoatrial junction. No acute osseous abnormality. Advanced degenerative changes of the le ft shoulder. Impression: 1: Cardiomegaly with interstitial edema. Reviewed, dictated and finalized at location B. SORTER Impression: 1: Cardiomegaly with interstitial edema.
--- NOTE | 2024-07-12 09:39 | ECG_ITS ---
Test Date: 2024-07-12 09:43:50 Measurements Intervals [place] Rate: 56 P: 0 NE: 0 QRS: 56 QRSD: 165 T: -67 QT: 476 QTc: 461 Interpretive Statements ATRIAL FIBRILLATION WITH SLOW VENTRICULAR RESPONSE INDETERMINATE AXIS RIGHT BUNDLE BRANCH BLOCK [120+ ms QRS DURATION, UPRIGHT V1, 40+ ms S IN I/aVL/V4/V5/V6] ANTEROSEPTAL MYOCARDIAL INFARCTION , OF INDETERMINATE AGE [40+ ms Q WAVE IN V1-V4] MODERATE T-WAVE ABNORMALITY, CONSIDER LATERAL ISCHEMIA [-0.1+ mV T WAVE IN I/aVL/V5/V6] No previous ECG available for comparison Electronically Signed On 07-12-2024 12:54:18 [employer] TECHNOLOGIST by Sami Kolb M.D.
--- NOTE | 2024-07-12 09:39 | ED_ITS ---
HPI - Weakness General Chief complaint: Weakness <Dago Lomax PA-C - Last Filed: 07/12/24 18:48> Stated complaint: weakness <VIJAY Moctezuma Last Filed: 07/12/24 18:48> Time Seen by Provider: 07/12/24 09:37 <VIJAY Moctezuma Last Filed: 07/12/24 18:48> Source: patient <VIJAY Moctezuma Last Filed: 07/12/24 18:48> Mode of arrival: ambulatory <VIJAY Moctezuma Last Filed: 07/12/24 18:48> Limitations: no limitations <VIJAY Moctezuma Last Filed: 07/12/24 18:48> History of Present Illness HPI Narrative: This is a 84-year-old male with PMH of ESRD, T2 dm, CHF, HTN, AFib who presents to the ED via EMS from home for chief complaint of generalized weakness and increased falls. Patient reports that he fell yesterday and this morning. States that yesterday when he fell he was unable to get himself up and had to have a friend come over to pick him up. Reports doing Friday dialysis. Reports he has a CBC and his right chest but they do not use that, have set up a fistula in the left arm. Patient reports he is falling because he just feels very generally weak. Denies any one-sided weakness or numbness. Den ies chest pain, syncope, shortness of breath, cough, fevers, chills, nausea, vomiting, abdominal pain, diarrhea, urinary symptoms. <Dago Lomax PA-C - Last Filed: 07/12/24 18:48> Related Data Home medications: Home Medications Medication Instructions Recorded Confirmed cholecalciferol (vitamin D3) 50 50 mcg PO DAILY 12/26/22 05/24/24 mcg (2,000 unit) capsule cyanocobalamin (vitamin B-12) 1,000 mcg PO DAILY 11/03/23 05/24/24 1,000 mcg capsule <VIJAY Moctezuma Last Filed: 07/12/24 18:48> Allergies/Adverse reactions: Allergies Allergy/AdvReac Type Severity Reaction Status Date / Time No Known Allergies Allergy Verified 05/24/24 13:43 <Dago Lomax PA-C - Last Filed: 07/12/24 18:48> Review of Systems Review of Systems: All systems as dictated in HPI <Dago Lomax PA-C - Last Filed: 07/12/24 18:48> [facility] Past Medical History Medical History: Medical History (Updated 07/12/24 @ 20:07 by Savanah Mccarty PA-C) Anemia of chronic disease Atrial fibrillation B12 deficiency anemia Benign prostatic hyperplasia Chronic anemia Chronic anticoagulation Congestive heart failure Echocardiogram October 2020: Indeterminate diastolic function, EF 65-70%, mild right ventricular enlargement, mildly increased left ventricular wall thickness, mild left atrial enlargement, mild mitral valve regurgitation, mild tricuspid valve regurgitation, moderate pulmonary hypertension with RVSP 59, 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 End-stage renal disease on hemodialysis Essential (primary) hypertension Hyperlipidemia associated with type 2 diabetes mellitus Hypertension associated with diabetes Iron deficiency anemia Mixed hyperlipidemia Pulmonary hypertension Umbilical hernia <Dago Lomax PA-C - Last Filed: 07/12/24 18:48> Surgical History Surgical History: Surgical History Normal colonoscopy (~2007) S/P insertion of spinal cord stimulator Status post bilateral knee replacements Status post cataract extraction of both eyes with insertion of intraocular lens <Dago Lomax PA-C - Last Filed: 07/12/24 18:48> Family History Family History: Family History Father Cerebrovascular accident Mother Hypertension Sibling Hypertension Kidney disease, chronic, end stage on dialysis <Dago Lomax PA-C - Last Filed: 07/12/24 18:48> Social History Social History: Social History Social History: Surrogate medical decision maker: Kathy Renata, spouse. Code status: Full code. Smoking packs per day: 0.5 Smoking cigarettes per day: 10.0 Years smoked: 3 Smoking pack-years: 1.50 Smoking status: Never smoker Tobacco type: cigarettes Second hand tobacco smoke exposure: Yes Smoking end date: 08/04/60 Alcohol intake: never Substance use: current Substance use type: does not use Do You Feel Safe in your Home?: Yes Lack of Transportation: No Lack of Food: Never True Current Housing: I Have Housing Concerned About Future Housing: No Difficulty Paying Gas/Electric Bills: No Difficulty Paying for Meds: No Currently Unemployed: No Education: Bachelor's Degree Difficulty w/ Childcare or Family Care: No Living arrangements: with family Additional living arrangements comments: Lives with spouse of nearly 60 years. They have a son and daughter. 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 Spiritual care concerns: No <Dago Lomax PA-C - Last Filed: 07/12/24 18:48> Exam Narrative: GENERAL: Well-appearing, well-nourished, and in no acute distress. HEAD: Normocephalic, atraumatic. EYES: PERRLA and EOMI. ENT: Nares clear, no rhinorrhea or epistaxis. Mucous membranes moist. Oropharynx without tonsillar hypertrophy exudate or other lesions. NECK: Supple. No adenopathy or masses. CHEST: No respiratory distress. Clear to auscultation. No wheezes rales or rhonchi. 93% room air. HEART: Regular rate and rhythm. No murmur heard. Normal peripheral pulses. ABDOMEN: Soft, nontender, nondistended, normal active bowel sounds. MSK: Left upper arm fistula site present. Bilateral lower extremity 3+ pitting edema with dependent rubor. SKIN: Warm, dry, no rash. NEURO: Alert and oriented x4. No focal deficits. PSYCH: Normal mood and affect. <Dago Lomax PA-C - Last Filed: 07/12/24 18:48> Course HEAD OF CYTOGENETICS/PA Physician Supervision This visit was performed by both a physician and an APC. I performed all aspects of the MDM as documented. <Justyn Yoder MD - Last Filed: 07/12/24 20:12> Consultations Consultation #1: spoke with Dr. Klob (Cardiology): he will consult on the patient. He is not recommending a pacemaker at this point. No further medical recommendations at this time. <Dago Lomax PA-C - Last Filed: 07/12/24 18:48> Consultation #2: Spoke with Dr. Johnson (Nephrology): he has been made aware that the patient is here. He will try to do dialysis today if able, if not they will get him in for dialysis tomorrow. <Dago Lomax PA-C - Last Filed: 07/12/24 18:48> Vital Signs Vital signs: Vital Signs Temperature 97.9 F 07/12/24 09:41 Pulse Rate 54 L 07/12/24 09:41 Respiratory Rate 12 07/12/24 09:41 Blood Pressure 96/61 L 07/12/24 09:41 Pulse Oximetry 93 07/12/24 09:41 Temperature 97.5 F L 07/12/24 19:19 Pulse Rate 45 L 07/12/24 19:19 Respiratory Rate 12 07/12/24 19:19 Blood Pressure 92/51 L 07/12/24 19:19 Pulse Oximetry 100 07/12/24 19:19 Oxygen Delivery Nasal Cannula 07/12/24 11:13 Oxygen Flow Rate 2 07/12/24 15:28 <Dago Lomax PA-C - Last Filed: 07/12/24 18:48> Vital Signs Temperature 97.9 F 07/12/24 09:41 Pulse Rate 54 L 07/12/24 09:41 Respiratory Rate 12 07/12/24 09:41 Blood Pressure 96/61 L 07/12/24 09:41 Pulse Oximetry 93 07/12/24 09:41 Temperature 97.5 F L 07/12/24 19:19 Pulse Rate 45 L 07/12/24 19:19 Respiratory Rate 12 07/12/24 19:19 Blood Pressure 92/51 L 07/12/24 19:19 Pulse Oximetry 100 07/12/24 19:19 Oxygen Delivery Nasal Cannula 07/12/24 11:13 Oxygen Flow Rate 2 07/12/24 15:28 <Justyn Yoder MD - Last Filed: 07/12/24 20:12> MDM - Weakness MDM Narrative Medical decision making narrative: This is a 84-year-old male who presents to the ED for chief complaint of generalized weakness and several falls.. Vitals show low blood pressure initially at 96/61 and bradycardia in the 50s. EKG showing atrial fibrillation with bradycardia. Heart rate intermittently dips into the 40s and sometimes upper 30s. Exam shows peripheral extremity edema Lab work showing evidence of ESRD with BUN and creatinine of 60 and 7.80. potassium slightly elevated at 5.6. Calcium gluconate started. BNP greater than 30,000 so there may be an element of acute vs chronic heart failure. chest x-ray: Impression: 1: Cardiomegaly with interstitial edema.. Overall the elevated BNP and cardiomegaly is probably expected with his chronic heart failure and ESRD. He does need dialysis today. I feel that his presentation may be consistent with symptomatic bradycardia which could be causing him to feel very weak and fall. Try to glucose on bolus push to treat a possible beta-cynthia toxicity causing the bradycardia today, however this had no effect. I spoke with cardiology about the case and they will consult but do not recommend any kind of pacing right now. I spoke with Nephrology who has seen the patient in the past and they will consult and plan to do dialysis today if possible. Spoke with MURPHY Pavon (hospitalist) who does recommend admission under Dr. Schneider. <Dago Lomax PA-C - Last Filed: 07/12/24 18:48> Lab Data Result diagrams: 07/12/24 10:01 07/12/24 10:01 <Dago Lomax PA-C - Last Filed: 07/12/24 18:48> Labs: Lab Results 07/12/24 07/12/24 07/12/24 Range/Units 10:01 10:05 11:26 WBC 4.5 (4.5-10.0) K/mm3 RBC 3.67 L (4.6-6.20) M/mm3 Hgb 12.0 L (14.0-18.0) g/dL Hct 37.7 L (42.0-52.0) % MCV 102.7 H (80-100) fl MCH 32.7 (26-34) pg MCHC 31.8 L (32-36) g/dl RDW 19.9 H (11.5-14.5) % Plt Count 67 L (150-375) k/mm3 MPV 12.0 H (7.4-10.4) fl Immature Gran % (Auto) 0.4 (0-0.5) % Neut % (Auto) 64.7 (45.5-73.1) % Lymph % (Auto) 18.3 (18.3-44.2) % Trego % (Auto) 15.0 H (2.6-8.5) % Eos % (Auto) 0.7 (0-4.4) % Baso % (Auto) 0.9 (0.2-1.2) % Lymph # (Auto) 0.83 L (0.9-3.2) K/mm3 Trego # (Auto) 0.7 H (0.1-0.6) K/mm3 Eos # (Auto) 0.0 (0-0.3) K/mm3 Baso # (Auto) 0.0 (0.0-0.1) K/mm3 Abs Immat Gran (auto) 0.02 (0.00-0.031) K/mm3 Absolute Neuts (auto) 2.9 (1.3-6.7) K/mm3 Absolute Nucleated RBC 0.000 (0.0-0.012) K/mm3 Nucleated RBC % 0.0 (0.0-0.2) % % Immature Plt Fraction 6.0 (0.9-11.2) % PT 22.2 H (11.1-14.7) Seconds INR 1.9 APTT 31.7 (22.3-36.8) Seconds Sodium 136 L (137-145) mmol/L Potassium 5.6 H (3.4-5.0) mmol/L Chloride 97 L (98-107) mmol/L Carbon Dioxide 27 (22-30) mmol/L Anion Gap 12 (4-12) mmol/L BUN 60 H D (9-20) mg/dL Creatinine 7.80 H (0.7-1.3) mg/dL Estim Creat Clear Calc 8 ml/min Estimated GFR 8 L (59 - ) Glucose 135 H (65-110) mg/dL POC Capillary Glucose 147 H (65-105) mg/dl Lactic Acid 2.0 (0.7-2.0) mmol/L Calcium 9.5 (8.4-10.2) mg/dL Phosphorus 6.0 H (2.5-4.5) mg/dL Magnesium 2.3 (1.6-2.3) mg/dL Total Bilirubin 2.1 H (0.2-1.3) mg/dL AST 34 (17-59) U/L ALT 16 (6-50) U/L Alkaline Phosphatase 112 (38-126) U/L Troponin I < 0.012 (0.000-0.034) ng/mL NT-Pro-B Natriuret Pep > 84706 H (19.9-100) pg/mL Total Protein 8.0 (6.3-8.2) g/dL Albumin 3.5 (3.5-5.1) g/dL Hep Bs Antigen Negative (Negative) Hep Bs Antibody Negative <Dago Lomax PA-C - Last Filed: 07/12/24 18:48> Lab Results 07/12/24 07/12/24 07/12/24 Range/Units 10:01 10:05 11:26 WBC 4.5 (4.5-10.0) K/mm3 RBC 3.67 L (4.6-6.20) M/mm3 Hgb 12.0 L (14.0-18.0) g/dL Hct 37.7 L (42.0-52.0) % MCV 102.7 H (80-100) fl MCH 32.7 (26-34) pg MCHC 31.8 L (32-36) g/dl RDW 19.9 H (11.5-14.5) % Plt Count 67 L (150-375) k/mm3 MPV 12.0 H (7.4-10.4) fl Immature Gran % (Auto) 0.4 (0-0.5) % Neut % (Auto) 64.7 (45.5-73.1) % Lymph % (Auto) 18.3 (18.3-44.2) % Trego % (Auto) 15.0 H (2.6-8.5) % Eos % (Auto) 0.7 (0-4.4) % Baso % (Auto) 0.9 (0.2-1.2) % Lymph # (Auto) 0.83 L (0.9-3.2) K/mm3 Trego # (Auto) 0.7 H (0.1-0.6) K/mm3 Eos # (Auto) 0.0 (0-0.3) K/mm3 Baso # (Auto) 0.0 (0.0-0.1) K/mm3 Abs Immat Gran (auto) 0.02 (0.00-0.031) K/mm3 Absolute Neuts (auto) 2.9 (1.3-6.7) K/mm3 Absolute Nucleated RBC 0.000 (0.0-0.012) K/mm3 Nucleated RBC % 0.0 (0.0-0.2) % % Immature Plt Fraction 6.0 (0.9-11.2) % PT 22.2 H (11.1-14.7) Seconds INR 1.9 APTT 31.7 (22.3-36.8) Seconds Sodium 136 L (137-145) mmol/L Potassium 5.6 H (3.4-5.0) mmol/L Chloride 97 L (98-107) mmol/L Carbon Dioxide 27 (22-30) mmol/L Anion Gap 12 (4-12) mmol/L BUN 60 H D (9-20) mg/dL Creatinine 7.80 H (0.7-1.3) mg/dL Estim Creat Clear Calc 8 ml/min Estimated GFR 8 L (59 - ) Glucose 135 H (65-110) mg/dL POC Capillary Glucose 147 H (65-105) mg/dl Lactic Acid 2.0 (0.7-2.0) mmol/L Calcium 9.5 (8.4-10.2) mg/dL Phosphorus 6.0 H (2.5-4.5) mg/dL Magnesium 2.3 (1.6-2.3) mg/dL Total Bilirubin 2.1 H (0.2-1.3) mg/dL AST 34 (17-59) U/L ALT 16 (6-50) U/L Alkaline Phosphatase 112 (38-126) U/L Troponin I < 0.012 (0.000-0.034) ng/mL NT-Pro-B Natriuret Pep > 84235 H (19.9-100) pg/mL Total Protein 8.0 (6.3-8.2) g/dL Albumin 3.5 (3.5-5.1) g/dL Hep Bs Antigen Negative (Negative) Hep Bs Antibody Negative <Justyn Yoder MD - Last Filed: 07/12/24 20:12> ABG Data ABG results: 07/12/24 10:01 VBG pH 7.401 H VBG pCO2 44.9 VBG pO2 51.9 H VBG HCO3 27.3 O2 Delivery Device Room air O2 Liters/Min Not Reportable FiO2 21 <Dago Loamx PA-C - Last Filed: 07/12/24 18:48> 07/12/24 10:01 VBG pH 7.401 H VBG pCO2 44.9 VBG pO2 51.9 H VBG HCO3 27.3 O2 Delivery Device Room air O2 Liters/Min Not Reportable FiO2 21 <Justyn Yoder MD - Last Filed: 07/12/24 20:12> ECG Data EKG #1: ECG completion date: 07/12/24 <Dago Lomax PA-C - Last Filed: 07/12/24 18:48> ECG completion time: 09:42 <Dago Lomax PA-C - Last Filed: 07/12/24 18:48> Prior ECG tracings: not available for review <Dago Lomax PA-C - Last Filed: 07/12/24 18:48> Interpretation: Atrial fibrillation with slow ventricular response Rate 56 RBBB Diffuse T-wave inversions slight ST depressions seen in the anterolateral leads No STEMI <Dago Lomax PA-C - Last Filed: 07/12/24 18:48> Discharge Plan Discharge Clinical Impression: Symptomatic bradycardia <Dago Lomax PA-C - Last Filed: 07/12/24 18:48> Patient Disposition: Home, Self-Care <Dago Lomax PA-C - Last Filed: 07/12/24 18:48> Condition: Stable <Dago Lomax PA-C - Last Filed: 07/12/24 18:48>
[2024-07-12 10:16] LABS: Basophils Percent Auto 0.9 % (0.2-1.2); Eosinophils Percent Auto 0.7 % (0-4.4); Hematocrit 37.7 % (42.0-52.0); Immature Granulocyte Absolute 0.02 K/mm3 (0.00-0.031); Immature Granulocyte Percent A 0.4 % (0-0.5); Lymphocytes Absolute Auto 0.83 K/mm3 (0.9-3.2); Lymphocytes Percent Auto 18.3 % (18.3-44.2); Mean Corpuscular HGB Conc 31.8 g/dl (32-36); Mean Corpuscular Hemoglobin 32.7 pg (26-34); Mean Corpuscular Volume 102.7 fl (80-100); Monocytes Absolute Auto 0.7 K/mm3 (0.1-0.6); Neutrophils Absolute Auto 2.9 K/mm3 (1.3-6.7); Neutrophils Percent Auto 64.7 % (45.5-73.1); Platelet Count Result 67 k/mm3 (150-375); Red Blood Count 3.67 M/mm3 (4.6-6.20); Red Cell Distribution Width 19.9 % (11.5-14.5); White Blood Count 4.5 K/mm3 (4.5-10.0)
[2024-07-12 10:23] LABS: Fractional Inspired Oxygen 21 %; HCO3 VBG 27.3 mEq/l (24.0-30.0); PCO2 VBG 44.9 mmHg (42.0-48.0); PO2 VBG 51.9 mmHg (35.0-45.0); pH VBG 7.401 (7.300-7.400)
[2024-07-12 10:24] LABS: Device ROOM AIR
[2024-07-12 10:25] LABS: INR 1.9; Prothrombin Time 22.2 Seconds (11.1-14.7)
[2024-07-12 10:26] LABS: Partial Thromboplastin Time 31.7 Seconds (22.3-36.8)
[2024-07-12 10:27] LABS: Alanine Aminotransferase 16 U/L (6-50); Albumin Level 3.5 g/dL (3.5-5.1); Alkaline Phosphatase 112 U/L (38-126); Anion Gap 12 mmol/L (4-12); Aspartate Amino Transferase 34 U/L (17-59); Bilirubin,Total 2.1 mg/dL (0.2-1.3); Blood Urea Nitrogen 60 mg/dL (9-20); Calcium 9.5 mg/dL (8.4-10.2); Carbon Dioxide 27 mmol/L (22-30); Chloride 97 mmol/L (98-107); Estimated CRCL calculation 8 ml/min; Estimated Glomerular Filt Rate 8; Glucose 135 mg/dL (65-110); Potassium 5.6 mmol/L (3.4-5.0); Sodium 136 mmol/L (137-145)
[2024-07-12 10:31] LABS: Magnesium 2.3 mg/dL (1.6-2.3)
[2024-07-12 10:35] LABS: NT Pro B Type Natriuretic Pept > 30000 pg/mL (19.9-100)
[2024-07-12 10:41] LABS: Troponin I < 0.012 ng/mL (0.000-0.034)
[2024-07-12] MEDS: GLUCAGON FOR INJ 1 MG VIAL 5 MG IV PUSH (11:05)
[2024-07-12] MEDS: CALCIUM GLUC 1,000 MG/NS 50 ML 1,000 MG/50 ML BAG 100 MG IVPB (11:23)
[2024-07-12 11:30] LABS: Glucose Point of Care 147 mg/dl (65-105)
[2024-07-12 13:02] LABS: Glucose Point of Care 153 mg/dl (65-105)
--- NOTE | 2024-07-12 13:05 | PM.IMHP ---
H&P: HPI History of Present Illness Date/Time: 07/12/24 13:35 Chief Complaint: Weakness. Narrative: This is an 84-year-old male with end-stage renal disease on hemodialysis, congestive heart failure, pulmonary hypertension, type 2 diabetes mellitus, atrial fibrillation on anticoagulation, hypertension, chronic anemia, and other comorbidities who presented to the emergency department via EMS from home evaluation of weakness. The patient provides the following history and his provides additional information with the patient's permission. He last had dialysis on Friday and was due for dialysis this morning but he was so weak that he came in for evaluation instead. The patient his reports that he has intermittent episodes of profound weakness, to the point where sometimes he cannot even get up from a seated position. At time she has sensations of lightheadedness and dizziness and he has had some falls as well but no loss of consciousness. Last fall was yesterday without head trauma or injury. He sees no pattern as to when these episodes occur. It is noted that over the past couple of months he has been started on midodrine on dialysis days only. He has not had any other recent changes in medications. No recent cold or flu symptoms. He also denies fever, chills, sweats, headache, vertigo, focal weakness, paresthesias, syncope, chest and pleuritic pain, shortness of breath, cough, abdominal pain, nausea, vomiting, diarrhea, and dysuria (he urinates only small amounts very infrequently). In the ED: Blood pressures have been in the upper 80s to low 100s systolic. He has been in slow atrial fibrillation with rates in the mid 30s to upper 50s. He has been afebrile. Labs are significant for WBC count 4.5, hemoglobin 12.0, MCV 102.7, platelets 67, INR 1.9, sodium 136, potassium 5.6, BUN 60, creatinine 7.80, lactic acid 2.0, proBNP greater than 30,000, troponin less than 0.012. EKG showed atrial fibrillation with slow ventricular response, right bundle-branch block, and T-wave inversions in the lateral/high lateral leads. He was given a dose of midodrine and is currently undergoing dialysis. He has no current complaints. Review of Systems Review of Systems: 12 systems were reviewed and are negative except for as per HPI. [facility] Past Medical History Medical History (Updated 07/12/24 @ 23:57 by Savanah Mccarty PA-C) Anemia of chronic disease Atrial fibrillation B12 deficiency anemia Benign prostatic hyperplasia Chronic anemia Chronic anticoagulation Congestive heart failure Echocardiogram October 2020: Indeterminate diastolic function, EF 65-70%, mild right ventricular enlargement, mildly increased left ventricular wall thickness, mild left atrial enlargement, mild mitral valve regurgitation, mild tricuspid valve regurgitation, moderate pulmonary hypertension with RVSP 59, moderate pulmonic valve regurgitation End-stage renal disease on hemodialysis Essential (primary) hypertension Iron deficiency anemia Mixed hyperlipidemia Pulmonary hypertension Type 2 diabetes mellitus with diabetic neuropathy Umbilical hernia Surgical History Surgical History (Updated 07/12/24 @ 23:57 by Savanah Mccarty PA-C) History of bilateral knee arthroplasty History of cataract extraction with lens replacement Normal colonoscopy (~2007) Status post insertion of spinal cord stimulator Family History Family History (Updated 07/12/24 @ 22:14 by Ana Whyte RN) Father Cerebrovascular accident Mother Hypertension Sibling Hypertension Other Kidney disease, chronic, end stage on dialysis Social History Social History Social History: Surrogate medical decision maker: Kathy Yanez, spouse. Code status: Full code. Smoking packs per day: 0.5 Smoking cigarettes per day: 10.0 Years smoked: 2.5 Smoking pack-years: 1.25 Smoking status: Former smoker Second hand tobacco smoke exposure: Yes Alcohol intake: never Substance use: current Substance use type: does not use Do You Feel Safe in your Home?: Yes Lack of Transportation: No Lack of Food: Never True Current Housing: I Have Housing Concerned About Future Housing: No Difficulty Paying Gas/Electric Bills: No Difficulty Paying for Meds: No Currently Unemployed: No Education: Bachelor's Degree Difficulty w/ Childcare or Family Care: No Living arrangements: with family Additional living arrangements comments: Lives with spouse of nearly 60 years. They have a son and daughter. Occupation/Education: retired Additional occupation/education comments: Retired from working with [employer]. Spiritual care concerns: No Meds Home Medications and Allergies Home Medications Medication Instructions Recorded Confirmed Type blood pressure monitor #1 ea 01/10/20 07/12/24 Rx blood sugar diagnostic (Blood #100 ea 01/10/20 07/12/24 Rx Glucose Test strips) blood-glucose meter #1 ea 01/10/20 07/12/24 Rx lancets #200 ea 01/10/20 07/12/24 Rx cholecalciferol (vitamin D3) 50 50 mcg PO DAILY 12/26/22 07/12/24 History mcg (2,000 unit) capsule cyanocobalamin (vitamin B-12) 1,000 mcg PO DAILY 11/03/23 07/12/24 History 1,000 mcg capsule calcitriol 0.25 mcg capsule 0.25 mcg PO 4XW #48 caps 11/19/23 07/12/24 Rx midodrine 10 mg tablet 10 mg PO WITH DIALYSIS PRN 12/30/23 07/12/24 Rx hypotension with dialysis #12 tabs ferrous sulfate 325 mg (65 mg 650 mg PO EVERY OTHER DAY #90 tabs 01/31/24 07/12/24 Rx iron) tablet (FeroSul) tramadol 50 mg tablet 50 mg PO Q8H PRN pain #90 tabs 02/06/24 07/12/24 Rx pen needle, diabetic 31 gauge x #100 ea 02/16/24 07/12/24 Rx 5/16 (BD Ultra-Fine Short Pen Needle) atorvastatin 10 mg tablet 10 mg PO DAILY #90 tabs 02/23/24 07/12/24 Rx apixaban 2.5 mg tablet (Eliquis) 2.5 mg PO Q12HR #180 tabs 03/12/24 07/12/24 Rx allopurinol 100 mg tablet 100 mg PO DAILY #90 tabs 03/31/24 07/12/24 Rx bumetanide 1 mg tablet 1 mg PO BID #60 tabs 06/16/24 07/12/24 Rx benzonatate 100 mg capsule See Rx Instructions .Route 07/05/24 07/12/24 Rx .COMPLEX #60 caps albuterol sulfate 90 mcg/actuation 2 puff inhalation Q6H PRN 07/12/24 07/12/24 History aerosol inhaler sob/wheezing calcium acetate(phosphat bind) 667 1,334 mg PO TIDWM 07/12/24 07/12/24 History mg tablet carvedilol 6.25 mg tablet 6.25 mg PO BIDWM 07/12/24 07/12/24 History fluticasone fur. 100 mcg-umeclid 1 inh inhalation DAILY 07/12/24 07/12/24 History 62.5 mcg-vilant 25 mcg inhalat.powder (Trelegy Ellipta) gabapentin 300 mg capsule 300 mg PO HS 07/12/24 07/12/24 History liraglutide 0.6 mg/0.1 mL (18 mg/3 1.2 mg subcut DAILY 07/12/24 07/12/24 History mL) subcutaneous pen injector (Victoza 2-Vidal) Allergies Allergy/AdvReac Type Severity Reaction Status Date / Time No Known Allergies Allergy Verified 05/24/24 13:43 Vital Signs Vital Signs - 24 hr 07/12/24 09:41 07/12/24 11:09 07/12/24 11:13 Temperature 97.9 F Pulse Rate 54 L 48 L Respiratory Rate 12 Blood Pressure 96/61 L Pulse Oximetry 93 98 Oxygen Delivery Nasal Cannula Oxygen Flow Rate 2 07/12/24 11:17 07/12/24 09:43 07/12/24 10:00 Temperature Pulse Rate 42 L 56 L 47 L Respiratory Rate 12 12 18 Blood Pressure 98/61 L 96/61 L Pulse Oximetry 98 90 94 Oxygen Delivery Oxygen Flow Rate 07/12/24 10:16 07/12/24 10:31 07/12/24 11:13 Temperature Pulse Rate 51 L 50 L 49 L Respiratory Rate 17 14 13 Blood Pressure 81/49 L 85/49 L 91/62 L Pulse Oximetry 92 92 99 Oxygen Delivery Oxygen Flow Rate 07/12/24 11:16 07/12/24 11:46 07/12/24 12:01 Temperature Pulse Rate 47 L 51 L 49 L Respiratory Rate 13 14 12 Blood Pressure 98/61 L 84/61 L 87/57 L Pulse Oximetry 99 97 96 Oxygen Delivery Oxygen Flow Rate 07/12/24 12:16 Temperature Pulse Rate 47 L Respiratory Rate 15 Blood Pressure 94/53 L Pulse Oximetry 96 Oxygen Delivery Oxygen Flow Rate Exam Narrative: General: Nontoxic-appearing gentleman the semi-Lawton position in bed. Weight: 96 kg. BMI: 38.4. HEENT: PERRL, EOMI. Sclera anicteric. Moist mucous membranes. Neck: Supple. Respiratory: Lungs are clear to auscultation bilaterally. Cardiovascular: Bradycardic. Telemetry shows slow atrial fibrillation. Gastrointestinal: Abdomen is is protuberant and nontender with positive bowel sounds. Skin: Warm and dry. Extremities: No cyanosis or clubbing. Bilateral lower extremity pitting edema, right greater than left. The lower legs are slightly erythematous but not warm or tender to touch, likely related to swelling. No palpable knots or cords. Negative Xavier sign bilaterally. Neurological: Alert. Cranial nerves 2-12 are grossly intact. No gross focal deficits to casual conversation. Psychiatric: Pleasant and cooperative with normal mood and affect. Judgment and insight intact. H&P: Results Labs Labs: Short CBC 07/12/24 Range/Units 10:01 WBC 4.5 (4.5-10.0) K/mm3 Hgb 12.0 L (14.0-18.0) g/dL Hct 37.7 L (42.0-52.0) % Plt Count 67 L (150-375) k/mm3 BMP 07/12/24 10:01 Sodium 136 L Potassium 5.6 H Chloride 97 L Carbon Dioxide 27 BUN 60 H D Creatinine 7.80 H Glucose 135 H Calcium 9.5 Cardiac Enzymes 07/12/24 Range/Units 10:01 Troponin I < 0.012 (0.000-0.034) ng/mL Liver Function 07/12/24 Range/Units 10:01 Total Bilirubin 2.1 H (0.2-1.3) mg/dL AST 34 (17-59) U/L ALT 16 (6-50) U/L Alkaline Phosphatase 112 (38-126) U/L Albumin 3.5 (3.5-5.1) g/dL Impressions Chest X-Ray 07/12/24 10:59 Impression: 1: Cardiomegaly with interstitial edema. 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 Labs, imaging, EKG, and all reports were personally reviewed. Although he sees no pattern as to when his weakness occurs, it seems to occur more frequently when going from a seated to standing position raising concern for possible orthostatic hypotension. His blood pressures have been running low over the past couple of months and he is taking midodrine on dialysis days. He may actually need to be taking these on a daily basis. Blood pressures will be monitored frequently to see how he trends. Additionally he is bradycardic and is in slow atrial fibrillation. It is possible that he could be weak from that as well however that does not look like it is a new finding either. Cardiology has been consulted for their opinion. He will be monitored on telemetry overnight. He is currently undergoing dialysis which should fix the mild hyperkalemia. Anemia stable on review of previous labs. Initiate sliding scale insulin, Accu-Cheks, and hypoglycemic protocol. His medications will be reviewed and resumed as appropriate. Findings and treatment plan were discussed with the patient. Questions were solicited and answered to satisfaction. The patient's medical management will be taken over by the hospitalist team in a.m. Quality VTE Prophylaxis VTE prophylaxis: pharmacologic ordered (on apixaban) The patient has been admitted under observation status. Hospitalist [facility] Advance Care Plan I have confirmed that the patient's Advanced Care Plan is present, code status is documented, or surrogate decision maker is listed in patient medical record.: Yes Medication Reconciliation I have utilized all available resources to obtain, update and review the patients current medications (includes all prescriptions, OTC, herbals, cannabis, and nutritional supplements).: Yes
[2024-07-12 13:42] LABS: Hepatitis B Surface Antigen Negative (Negative)
[2024-07-12 14:00] LABS: Hepatitis B Surface Anti Res Negative
--- NOTE | 2024-07-12 15:13 | PC.NURSE ---
Pt off the floor to dialysis at this time.
[2024-07-12] MEDS: MIDODRINE HCL 10 MG TABLET PO (15:20)
--- NOTE | 2024-07-12 16:01 | P.CONNP_ITS ---
Assessment and Plan Assessment and plan (1) End-stage renal disease (ESRD): Code(s): N18.6 - End stage renal disease Status: Chronic Assessment and Plan: * HD today * continue Fri/Fri/Friday dialysis schedule while hospitalized * follow electrolytes, volume status, and clearance (2) Hyperkalemia: Code(s): E87.5 - Hyperkalemia Status: Acute Assessment and Plan: * as noted on admission labs * should correct with dialysis * follow trend (3) Atrial fibrillation with slow ventricular response: Code(s): I48.91 - Unspecified atrial fibrillation Status: Acute Assessment and Plan: * as noted on admission * heart rate have been as low as high 30s * possibly contributing to #4 * carvedilol on hold * Cardiology consulted * follow telemetry * on anticoagulation with eliquis (4) Generalized weakness: Code(s): R53.1 - Weakness Status: Acute Assessment and Plan: * as noted on admission * related to #3 (?) * PT/OT consulted * follow symptoms (5) Hypotension: Code(s): I95.9 - Hypotension, unspecified Status: Chronic Assessment and Plan: * chronic issue at baseline * on midodrine therapy * contributing to #4 (?) * follow trend of hemodynamics (6) Anemia: Code(s): D64.9 - Anemia, unspecified Status: Chronic Assessment and Plan: * due to ESRD * Retacrit with HD * follow trend of H/H (7) Diabetes: Code(s): E11.9 - Type 2 diabetes mellitus without complications Status: Chronic Assessment and Plan: * follow accu-cheks * glycemic control per hospitalists I will continue follow the patient with you while he remains hospitalized and make further recommendations as needed. Thank you for allowing me to participate in the care of this patient. History of Present Illness Reason for Consult Consult date: 07/12/24 Reason for consult: end stage renal disease Chief Complaint Chief complaint: Atrial fibrillation w/ bradycardia,frequent falls History of Present Illness Narrative: The patient is an 84-year-old male with a past medical history as outlined below who presented to [facility] Room via EMS due to severe/profound weakness. The patient was due for his regularly scheduled dialysis treatment earlier today but due to his weakness, came to the emergency room instead. The patient returned reports that he has had intermittent episodes of profound weakness to the point where he sometimes cannot even get up from a seated position. At times, he has had associated lightheadedness and dizziness and apparently some falls but no reported loss of consciousness. He reports his last fall was yesterday but once again he denies any head trauma. He has not noted any specific event pattern to these episodes of weakness other than the fact that it seemed originally started a couple of months ago. As already mentioned, some of these episodes have been associated with low blood pressure and attempt to compensate for this issue he was started on midodrine therapy , particularly to be taken on dialysis days given the shifts in his blood pressure during his dialysis treatments. He reports no other changes to his medications and gives no other subjective symptoms with regard to fevers, chills, diaphoresis, headache, vertigo, paresthesias, syncope, chest pain, shortness of breath, cough, abdominal pain, nausea, vomiting, diarrhea, or dysuria. Given the progressive nature of these symptoms with regard to his weakness, he eventually came to the emergency room today for further assessment. Workup and evaluation emergency room demonstrated relatively low blood pressures in the 80s to 100 systolic (but that is his chronic baseline) and he was otherwise afebrile But it was noted that his heart rate was in the mid 30s to high 50s range. Routine blood test demonstrated normal white blood cell count relatively stable hemoglobin/ hematocrit, low platelets, mildly elevated INR, and a chemistry that was consistent with his known history of end-stage renal disease although his potassium was mildly elevated 5.6. His proBNP was greater than 30,000 and his troponin was normal. His EKG showed atrial fibrillation with slow ventricular response but no evidence of acute ischemia. He was given a dose of midodrine as per his normal schedule and given his profound weakness and his relative bradycardia, he was admitted to the hospital for further evaluation and therapy. Renal consultation was requested due to his end stage renal disease. the patient is quite familiar to me as I take care of his outpatient dialysis needs. He normally dialyzes on a Friday, Friday, Friday dialysis schedule at [facility] under my care. His history with regard to kidney disease is somewhat complicated. In July of 2023 he was initiated on renal replacement therapy /dialysis for better control of his fluid status as he had evidence of diuretic resistance during his acute hospitalization around that time. His fluid and overall volume status improved on dialysis but then his left labs in late September demonstrated evidence of renal recovery. A subsequent 24 hour urine collection demonstrated that he had reasonable renal function as well as urine output so dialysis was discontinued. However, that he was hospitalized again in December of 2023 for a similar presentation of fluid overload/ anasarca resistant to IV diuretic therapy. He was once again reinstituted on renal replacement therapy / dialysis with the assumption that he requires dialysis to maintain his fluid status as diuretics alone are unable to maintain euvolemia. He has been dialysis dependent since that time but this has resulted in improved stability in his swelling/edema and overall clinical status. He was due for dialysis today but came to the ER as outlined above for his worsening weakness and debility. Currently, at the time my visit, he does not appear to be any acute distress and is tolerating dialysis at the time of my visit (seen on HD at 3:50PM). Review of Systems 2 Review of Systems: As per HPI. [facility] Past Medical History Medical History End-stage renal disease on hemodialysis Chronic anemia Benign prostatic hyperplasia Pulmonary hypertension Anemia of chronic disease Chronic anticoagulation Umbilical hernia Iron deficiency anemia B12 deficiency anemia Congestive heart failure Echocardiogram October 2020: Indeterminate diastolic function, EF 65-70%, mild right ventricular enlargement, mildly increased left ventricular wall thickness, mild left atrial enlargement, mild mitral valve regurgitation, mild tricuspid valve regurgitation, moderate pulmonary hypertension with RVSP 59, moderate pulmonic valve regurgitation Atrial fibrillation Essential (primary) hypertension Mixed hyperlipidemia Type 2 diabetes mellitus with diabetic neuropathy Surgical History Surgical History Status post insertion of spinal cord stimulator History of cataract extraction with lens replacement History of bilateral knee arthroplasty Normal colonoscopy (~2007) Family History Family History Father Cerebrovascular accident Mother Hypertension Sibling Hypertension Other Kidney disease, chronic, end stage on dialysis Social History Social History Social History: Surrogate medical decision maker: Kathy Yanez, spouse. Code status: Full code. Smoking packs per day: 0.5 Smoking cigarettes per day: 10.0 Years smoked: 2.5 Smoking pack-years: 1.25 Smoking status: Former smoker Second hand tobacco smoke exposure: Yes Alcohol intake: never Substance use: current Substance use type: does not use Do You Feel Safe in your Home?: Yes Lack of Transportation: No Lack of Food: Never True Current Housing: I Have Housing Concerned About Future Housing: No Difficulty Paying Gas/Electric Bills: No Difficulty Paying for Meds: No Currently Unemployed: No Education: Bachelor's Degree Difficulty w/ Childcare or Family Care: No Living arrangements: with family Additional living arrangements comments: Lives with spouse of nearly 60 years. They have a son and daughter. Occupation/Education: retired Additional occupation/education comments: Retired from working with [employer]. Spiritual care concerns: No Meds Home Medications and Allergies Home Medications ?Medication ?Instructions ?Recorded ?Confirmed ?Type blood pressure monitor #1 ea 01/10/20 07/12/24 Rx blood sugar diagnostic (Blood #100 ea 01/10/20 07/12/24 Rx Glucose Test strips) blood-glucose meter #1 ea 01/10/20 07/12/24 Rx lancets #200 ea 01/10/20 07/12/24 Rx cholecalciferol (vitamin D3) 50 50 mcg PO DAILY 12/26/22 07/12/24 History mcg (2,000 unit) capsule cyanocobalamin (vitamin B-12) 1,000 mcg PO DAILY 11/03/23 07/12/24 History 1,000 mcg capsule calcitriol 0.25 mcg capsule 0.25 mcg PO 4XW #48 caps 11/19/23 07/12/24 Rx midodrine 10 mg tablet 10 mg PO WITH DIALYSIS PRN 12/30/23 07/12/24 Rx hypotension with dialysis #12 tabs ferrous sulfate 325 mg (65 mg 650 mg (2 x 325 mg (65 mg iron)) 01/31/24 07/12/24 Rx iron) tablet (FeroSul) PO EVERY OTHER DAY #90 tabs pen needle, diabetic 31 gauge x #100 ea 02/16/24 07/12/24 Rx 5/16 (BD Ultra-Fine Short Pen Needle) atorvastatin 10 mg tablet 10 mg PO DAILY #90 tabs 02/23/24 07/12/24 Rx apixaban 2.5 mg tablet (Eliquis) 2.5 mg PO Q12HR #180 tabs 03/12/24 07/12/24 Rx allopurinol 100 mg tablet 100 mg PO DAILY #90 tabs 03/31/24 07/12/24 Rx bumetanide 1 mg tablet 1 mg PO BID #60 tabs 06/16/24 07/12/24 Rx benzonatate 100 mg capsule See Rx Instructions .Route 07/05/24 07/12/24 Rx .COMPLEX #60 caps albuterol sulfate 90 mcg/actuation 2 puff inhalation Q6H PRN 07/12/24 07/12/24 History aerosol inhaler sob/wheezing calcium acetate(phosphat bind) 667 1,334 mg PO TIDWM 07/12/24 07/12/24 History mg tablet fluticasone fur. 100 mcg-umeclid 1 inh inhalation DAILY 07/12/24 07/12/24 History 62.5 mcg-vilant 25 mcg inhalat.powder (Trelegy Ellipta) gabapentin 300 mg capsule 300 mg PO HS 07/12/24 07/12/24 History liraglutide 0.6 mg/0.1 mL (18 mg/3 1.2 mg subcut DAILY 07/12/24 07/12/24 History mL) subcutaneous pen injector (Victoza 2-Vidal) acetaminophen 325 mg tablet 650 mg (2 x 325 mg) PO Q6H PRN 07/17/24 Rx Mild Pain (1-3) Or Fever #30 tabs hydrocodone 5 mg-acetaminophen 325 1 tablet PO Q8H PRN pain #10 tabs 07/17/24 Rx mg tablet Allergies Allergy/AdvReac Type Severity Reaction Status Date / Time No Known Allergies Allergy Verified 05/24/24 13:43 Vital Signs Vital Signs Temp Pulse Resp BP Pulse Ox O2 Del Method O2 Flow Rate 07/12/24 16:00 45 L 97/52 L 07/12/24 15:45 41 L 87/54 L 07/12/24 15:28 50 L 80/46 L 07/12/24 15:02 98.1 F 50 L 16 91/51 L 100 07/12/24 13:16 44 L 16 88/56 L 100 07/12/24 13:01 45 L 8 L 89/56 L 07/12/24 12:46 44 L 16 92/54 L 100 07/12/24 12:16 47 L 15 94/53 L 96 07/12/24 12:01 49 L 12 87/57 L 96 07/12/24 11:46 51 L 14 84/61 L 97 07/12/24 11:16 47 L 13 98/61 L 99 07/12/24 11:13 49 L 13 91/62 L 99 07/12/24 10:31 50 L 14 85/49 L 92 07/12/24 10:16 51 L 17 81/49 L 92 07/12/24 10:00 47 L 18 94 07/12/24 09:43 56 L 12 96/61 L 90 07/12/24 11:17 42 L 12 98/61 L 98 07/12/24 11:13 98 Nasal Cannula 2 07/12/24 11:09 48 L 07/12/24 09:41 97.9 F 54 L 12 96/61 L 93 Exam 2 Narrative: GENERAL APPEARANCE: well developed well nourished male in no acute distress HEENT: normocephalic, atraumatic, normal conjunctiva and sclera, nares patient NECK: no lymphadenopathy, thyromegaly, or JVD MOUTH: normal lips, teeth, and gums CARDIOVASCULAR: RRR, normal S1 and S2, no rub detected RESPIRATORY: clear to auscultation ABDOMEN: soft, nontender, nondistended, positive bowel sounds present EXTREMITIES: no evidence of cyanosis, clubbing, 2+ edema NEUROLOGICAL: alert and oriented x 3; CN II - XII intact bilaterally; no focal deficits noted Results Lab Results 07/14/24 04:51 07/14/24 04:51 Lab results: Most recent lab results Calcium 9.5 mg/dL (8.4-10.2) 07/12/24 10:01 Phosphorus 6.0 mg/dL (2.5-4.5) H 07/12/24 10:01 Magnesium 2.3 mg/dL (1.6-2.3) 07/12/24 10:01
[2024-07-12] MEDS: ALBUMIN HUMAN 25% 12.5 GM/50ML 50 ML IVPB (16:28)
[2024-07-12 22:23] LABS: Glucose Point of Care 182 mg/dl (65-105)
--- NOTE | 2024-07-12 22:35 | ADMGEN ---
This patient, Khalif Yanez, was admitted to IMU Room 203-01. Patient/family oriented to hospital policies and general routines including ID bracelet, bed and alarms, visiting hours, pain management, procedures, bathroom and other care routines, personal items, smoking policy, room service/diet, and visiting hours. Information on how to activate the Rapid Response Team has been discussed. Patient/Family are encouraged to report perceived risks to care and to ask questions if they do not understand what they are told or what they should do.
--- NOTE | 2024-07-12 22:39 | PC.NURSE ---
Admission report to [facility].
[2024-07-13] VITALS (29 sets, daily range): BP systolic 80–116; BP diastolic 24–94; PULSE 42–74; RESP 16–20; TEMP 0–37; O2SAT 93–96
[2024-07-13 07:41] LABS: Hematocrit 37.4 % (42.0-52.0); Hemoglobin 11.8 g/dL (14.0-18.0); Immature Platelet Fraction Pct 7.2 % (0.9-11.2); Mean Corpuscular HGB Conc 31.6 g/dl (32-36); Mean Corpuscular Hemoglobin 32.8 pg (26-34); Mean Corpuscular Volume 103.9 fl (80-100); Mean Platelet Volume 12.3 fl (7.4-10.4); Platelet Count Result 69 k/mm3 (150-375); Red Cell Distribution Width 19.9 % (11.5-14.5); White Blood Count 4.8 K/mm3 (4.5-10.0)
[2024-07-13 08:06] LABS: Glucose Point of Care 151 mg/dl (65-105)
[2024-07-13] MEDS: MIDODRINE HCL 10 MG TABLET PO (08:28)
--- NOTE | 2024-07-13 08:41 | PC.NURSE ---
pt up to dialysis at 0835, given prn midodrine per dialysis nurse
[2024-07-13 09:11] LABS: Alanine Aminotransferase 16 U/L (6-50); Albumin Level 3.4 g/dL (3.5-5.1); Alkaline Phosphatase 97 U/L (38-126); Anion Gap 10 mmol/L (4-12); Aspartate Amino Transferase 29 U/L (17-59); Bilirubin,Total 2.3 mg/dL (0.2-1.3); Blood Urea Nitrogen 41 mg/dL (9-20); Calcium 9.2 mg/dL (8.4-10.2); Carbon Dioxide 28 mmol/L (22-30); Chloride 101 mmol/L (98-107); Estimated CRCL calculation 11 ml/min; Estimated Glomerular Filt Rate 12; Glucose 158 mg/dL (65-110); Magnesium 2.2 mg/dL (1.6-2.3); Potassium 4.9 mmol/L (3.4-5.0); Sodium 139 mmol/L (137-145)
[2024-07-13] MEDS: ALBUMIN HUMAN 25% 12.5 GM/50ML 50 ML 100 GM (09:18)
--- NOTE | 2024-07-13 09:40 | P.CONCA_ITS ---
Assessment and Plan Assessment and plan (1) Atrial fibrillation with slow ventricular response: Code(s): I48.91 - Unspecified atrial fibrillation Status: Acute Assessment and Plan: Chronic atrial fibrillation currently with slow ventricular response. Looking back at his telemetry his current rates don't seem to be much lower than his baseline. He does take coreg at home so we can hold this and observe his heart rate on telemetry. No significant pauses seen so far on telemetry. No indication for pacemaker. Continue anticoagulation with apixaban. (2) Hypotension: Code(s): I95.9 - Hypotension, unspecified Status: Acute Assessment and Plan: Continue midodrine on dialysis days. (3) End-stage renal disease on hemodialysis: Code(s): N18.6 - End stage renal disease; Z99.2 - Dependence on renal dialysis Status: Acute Assessment and Plan: Oh hemodialysis. Nephrology following along. History of Present Illness History of Present Illness Consult date/time: 07/13/24 09:40 Requesting physician: Dago Lomax PA-C Consult reason: Other (bradycardia) Reason For Visit: Atrial fibrillation w/ bradycardia,frequent falls Narrative: Khalif Yanez is an 84 year old male with chronic atrial fibrillation, diastolic dysfunction, pulmonary hypertension, and end-stage renal disease on dialysis. He comes to the hospital with a chief complaint of weakness, stating I just couldn't get around. Cardiology is consulted for bradycardia. His heart rate is generally in the 40's and 50's on telemetry. He denies any syncope or pre-syncope. He tells me that his heart rate is usually low as is his blood pressure. He is receiving hemodialysis at the time of my evaluation and has no active complaints. He does mention he has a hernia that bothers him from time to time. Review of Systems 2 Review of Systems: All systems reviewed & are unremarkable except as noted in HPI and below PMFSH Past Medical History Medical History End-stage renal disease on hemodialysis Chronic anemia Benign prostatic hyperplasia Pulmonary hypertension Anemia of chronic disease Chronic anticoagulation Umbilical hernia Iron deficiency anemia B12 deficiency anemia Congestive heart failure Echocardiogram October 2020: Indeterminate diastolic function, EF 65-70%, mild right ventricular enlargement, mildly increased left ventricular wall thickness, mild left atrial enlargement, mild mitral valve regurgitation, mild tricuspid valve regurgitation, moderate pulmonary hypertension with RVSP 59, moderate pulmonic valve regurgitation Atrial fibrillation Essential (primary) hypertension Mixed hyperlipidemia Type 2 diabetes mellitus with diabetic neuropathy Surgical History Surgical History Status post insertion of spinal cord stimulator History of cataract extraction with lens replacement History of bilateral knee arthroplasty Normal colonoscopy (~2007) Family History Family History Father Cerebrovascular accident Mother Hypertension Sibling Hypertension Other Kidney disease, chronic, end stage on dialysis Social History Social History Social History: Surrogate medical decision maker: Kathy Yanez, spouse. Code status: Full code. Smoking packs per day: 0.5 Smoking cigarettes per day: 10.0 Years smoked: 2.5 Smoking pack-years: 1.25 Smoking status: Former smoker Second hand tobacco smoke exposure: Yes Alcohol intake: never Substance use: current Substance use type: does not use Do You Feel Safe in your Home?: Yes Lack of Transportation: No Lack of Food: Never True Current Housing: I Have Housing Concerned About Future Housing: No Difficulty Paying Gas/Electric Bills: No Difficulty Paying for Meds: No Currently Unemployed: No Education: Bachelor's Degree Difficulty w/ Childcare or Family Care: No Living arrangements: with family Additional living arrangements comments: Lives with spouse of nearly 60 years. They have a son and daughter. Occupation/Education: retired Additional occupation/education comments: Retired from working with [employer]. Spiritual care concerns: No Meds Home Medications and Allergies Home Medications ?Medication ?Instructions ?Recorded ?Confirmed ?Type blood pressure monitor #1 ea 01/10/20 07/12/24 Rx blood sugar diagnostic (Blood #100 ea 01/10/20 07/12/24 Rx Glucose Test strips) blood-glucose meter #1 ea 01/10/20 07/12/24 Rx lancets #200 ea 01/10/20 07/12/24 Rx cholecalciferol (vitamin D3) 50 50 mcg PO DAILY 12/26/22 07/12/24 History mcg (2,000 unit) capsule cyanocobalamin (vitamin B-12) 1,000 mcg PO DAILY 11/03/23 07/12/24 History 1,000 mcg capsule calcitriol 0.25 mcg capsule 0.25 mcg PO 4XW #48 caps 11/19/23 07/12/24 Rx midodrine 10 mg tablet 10 mg PO WITH DIALYSIS PRN 12/30/23 07/12/24 Rx hypotension with dialysis #12 tabs ferrous sulfate 325 mg (65 mg 650 mg (2 x 325 mg (65 mg iron)) 01/31/24 07/12/24 Rx iron) tablet (FeroSul) PO EVERY OTHER DAY #90 tabs tramadol 50 mg tablet 50 mg PO Q8H PRN pain #90 tabs 02/06/24 07/12/24 Rx pen needle, diabetic 31 gauge x #100 ea 02/16/24 07/12/24 Rx 5/16 (BD Ultra-Fine Short Pen Needle) atorvastatin 10 mg tablet 10 mg PO DAILY #90 tabs 02/23/24 07/12/24 Rx apixaban 2.5 mg tablet (Eliquis) 2.5 mg PO Q12HR #180 tabs 03/12/24 07/12/24 Rx allopurinol 100 mg tablet 100 mg PO DAILY #90 tabs 03/31/24 07/12/24 Rx bumetanide 1 mg tablet 1 mg PO BID #60 tabs 06/16/24 07/12/24 Rx benzonatate 100 mg capsule See Rx Instructions .Route 07/05/24 07/12/24 Rx .COMPLEX #60 caps albuterol sulfate 90 mcg/actuation 2 puff inhalation Q6H PRN 07/12/24 07/12/24 History aerosol inhaler sob/wheezing calcium acetate(phosphat bind) 667 1,334 mg PO TIDWM 07/12/24 07/12/24 History mg tablet carvedilol 6.25 mg tablet 6.25 mg PO BIDWM 07/12/24 07/12/24 History fluticasone fur. 100 mcg-umeclid 1 inh inhalation DAILY 07/12/24 07/12/24 History 62.5 mcg-vilant 25 mcg inhalat.powder (Trelegy Ellipta) gabapentin 300 mg capsule 300 mg PO HS 07/12/24 07/12/24 History liraglutide 0.6 mg/0.1 mL (18 mg/3 1.2 mg subcut DAILY 07/12/24 07/12/24 History mL) subcutaneous pen injector (Victoza 2-Vidal) Allergies Allergy/AdvReac Type Severity Reaction Status Date / Time No Known Allergies Allergy Verified 05/24/24 13:43 Vital Signs Vital Signs - 24 hr 07/12/24 09:41 07/12/24 09:43 07/12/24 10:00 Temperature 36.6 C Pulse Rate 54 L 56 L 47 L Respiratory Rate 12 12 18 Blood Pressure 96/61 L 96/61 L Pulse Oximetry 93 90 94 Oxygen Delivery Oxygen Flow Rate 07/12/24 10:16 07/12/24 10:31 07/12/24 11:09 Temperature Pulse Rate 51 L 50 L 48 L Respiratory Rate 17 14 Blood Pressure 81/49 L 85/49 L Pulse Oximetry 92 92 Oxygen Delivery Oxygen Flow Rate 07/12/24 11:13 07/12/24 11:13 07/12/24 11:16 Temperature Pulse Rate 49 L 47 L Respiratory Rate 13 13 Blood Pressure 91/62 L 98/61 L Pulse Oximetry 98 99 99 Oxygen Delivery Nasal Cannula Oxygen Flow Rate 2 07/12/24 11:17 07/12/24 11:46 07/12/24 12:01 Temperature Pulse Rate 42 L 51 L 49 L Respiratory Rate 12 14 12 Blood Pressure 98/61 L 84/61 L 87/57 L Pulse Oximetry 98 97 96 Oxygen Delivery Oxygen Flow Rate 07/12/24 12:16 07/12/24 12:46 07/12/24 13:01 Temperature Pulse Rate 47 L 44 L 45 L Respiratory Rate 15 16 8 L Blood Pressure 94/53 L 92/54 L 89/56 L Pulse Oximetry 96 100 Oxygen Delivery Oxygen Flow Rate 07/12/24 13:16 07/12/24 13:46 07/12/24 13:54 Temperature Pulse Rate 44 L 45 L 41 L Respiratory Rate 16 9 L 12 Blood Pressure 88/56 L 88/52 L 88/59 L Pulse Oximetry 100 99 Oxygen Delivery Oxygen Flow Rate 07/12/24 14:00 07/12/24 14:01 07/12/24 14:15 Temperature Pulse Rate 47 L 39 L 44 L Respiratory Rate 10 L 11 L 9 L Blood Pressure 89/53 L Pulse Oximetry 99 99 99 Oxygen Delivery Oxygen Flow Rate 07/12/24 14:16 07/12/24 14:31 07/12/24 14:32 Temperature Pulse Rate 43 L 46 L 47 L Respiratory Rate 10 L 21 H 9 L Blood Pressure 91/53 L 95/57 L Pulse Oximetry 100 92 97 Oxygen Delivery Oxygen Flow Rate 07/12/24 15:02 07/12/24 15:28 07/12/24 15:28 Temperature 36.7 C Pulse Rate 50 L 50 L Respiratory Rate 16 Blood Pressure 91/51 L 80/46 L Pulse Oximetry 100 Oxygen Delivery Oxygen Flow Rate 2 07/12/24 15:45 07/12/24 16:00 07/12/24 16:15 Temperature Pulse Rate 41 L 45 L 49 L Respiratory Rate Blood Pressure 87/54 L 97/52 L 95/53 L Pulse Oximetry Oxygen Delivery Oxygen Flow Rate 07/12/24 16:30 07/12/24 16:45 07/12/24 17:00 Temperature Pulse Rate 46 L 42 L 48 L Respiratory Rate Blood Pressure 99/47 L 90/50 L 100/50 L Pulse Oximetry Oxygen Delivery Oxygen Flow Rate 07/12/24 17:09 07/12/24 17:15 07/12/24 17:30 Temperature Pulse Rate 50 L 50 L 54 L Respiratory Rate 16 Blood Pressure 94/59 L 105/54 L Pulse Oximetry 100 Oxygen Delivery Oxygen Flow Rate 07/12/24 17:45 07/12/24 18:00 07/12/24 18:10 Temperature Pulse Rate 48 L 54 L 60 Respiratory Rate Blood Pressure 104/65 106/54 L Pulse Oximetry 100 Oxygen Delivery Oxygen Flow Rate 07/12/24 18:15 07/12/24 18:30 07/12/24 18:45 Temperature Pulse Rate 51 L 59 L 43 L Respiratory Rate Blood Pressure 92/46 L 92/49 L 87/48 L Pulse Oximetry Oxygen Delivery Oxygen Flow Rate 07/12/24 19:00 07/12/24 19:03 07/12/24 19:15 Temperature Pulse Rate 44 L 53 L 57 L Respiratory Rate Blood Pressure 86/50 L 92/53 L 96/43 L Pulse Oximetry Oxygen Delivery Oxygen Flow Rate 07/12/24 19:19 07/12/24 22:00 07/12/24 22:00 Temperature 36.4 C L 36.3 C L Pulse Rate 45 L 49 L 52 L Respiratory Rate 12 20 Blood Pressure 92/51 L 91/45 L Pulse Oximetry 100 92 Oxygen Delivery Oxygen Flow Rate 07/12/24 22:24 07/12/24 22:34 07/12/24 22:36 Temperature 36.3 C L Pulse Rate 45 L 49 L Respiratory Rate 12 20 Blood Pressure 91/45 L Pulse Oximetry 100 92 Oxygen Delivery Room Air Room Air Oxygen Flow Rate 07/12/24 23:57 07/13/24 00:00 07/13/24 00:00 Temperature 37.1 C Pulse Rate 53 L 53 L 48 L Respiratory Rate 20 20 Blood Pressure 104/53 L Pulse Oximetry 96 96 Oxygen Delivery Room Air Oxygen Flow Rate 07/13/24 02:00 07/13/24 07:43 Temperature 36.4 C Pulse Rate 53 L 55 L Respiratory Rate 16 Blood Pressure 93/49 L Pulse Oximetry 93 Oxygen Delivery Oxygen Flow Rate Exam 2 Const: General: comfortable, no acute distress, alert and awake O rientation/consciousness: patient oriented x3 HENMT: Head: normal to inspection Eyes: General: appearance normal, both eyes and all related structures P upils: Equal, round and reactive pupils present Neck: Neck: normal visual inspection, supple and no JVD Carotids: normal carotid upstroke Resp: Effort & Inspection: normal respiratory effort Auscultation: clear to auscultation bilaterally Cardio: Rate: bradycardic Rhythm: abnormal rhythm irregularly irregular Heart sounds: S1 normal heart sound present, S2 normal heart sound present and no murmurs GI: GI Palp: Yes Hernia present Auscultation: normal bowel sounds Skin: General skin exam: normal color Neuro: General: patient oriented x3 Cranial nerves: Yes Equal, round and reactive pupils present Extrem: General: edema (right pretibial and pedal edema worse than left) bilateral Psych: Appearance: grossly normal Mental Status: mental status grossly normal Results Labs and Meds 07/13/24 05:00 07/13/24 08:27 Lab results: Cardiac Enzymes 07/12/24 07/13/24 Range/Units 10:01 08:27 AST 34 29 (17-59) U/L Troponin I < 0.012 (0.000-0.034) ng/mL Coagulation 07/12/24 Range/Units 10:01 PT 22.2 H (11.1-14.7) Seconds APTT 31.7 (22.3-36.8) Seconds CBC 07/12/24 07/13/24 Range/Units 10:01 05:00 WBC 4.5 4.8 (4.5-10.0) K/mm3 RBC 3.67 L 3.60 L (4.6-6.20) M/mm3 Hgb 12.0 L 11.8 L (14.0-18.0) g/dL Hct 37.7 L 37.4 L (42.0-52.0) % Plt Count 67 L 69 L (150-375) k/mm3 Lymph # (Auto) 0.83 L (0.9-3.2) K/mm3 [place] # (Auto) 0.7 H (0.1-0.6) K/mm3 Eos # (Auto) 0.0 (0-0.3) K/mm3 Baso # (Auto) 0.0 (0.0-0.1) K/mm3 Comprehensive Metabolic Panel 07/12/24 07/13/24 Range/Units 10:01 08:27 Sodium 136 L 139 (137-145) mmol/L Potassium 5.6 H 4.9 (3.4-5.0) mmol/L Chloride 97 L 101 (98-107) mmol/L Carbon Dioxide 27 28 (22-30) mmol/L BUN 60 H D 41 H D (9-20) mg/dL Creatinine 7.80 H 5.60 H (0.7-1.3) mg/dL Glucose 135 H 158 H (65-110) mg/dL Calcium 9.5 9.2 (8.4-10.2) mg/dL AST 34 29 (17-59) U/L ALT 16 16 (6-50) U/L Alkaline Phosphatase 112 97 (38-126) U/L Total Protein 8.0 7.0 (6.3-8.2) g/dL Albumin 3.5 3.4 L (3.5-5.1) g/dL Intake and Output 07/12/24 07/13/24 07/13/24 23:59 07:59 15:59 Intake Total 120 Output Total 1999 -1999 120 Intake: Oral 120 Output: Net UF Removed 1999
--- NOTE | 2024-07-13 11:16 | P.PNNP_ITS ---
Progress Note: A&P Assessment and Plan (1) End-stage renal disease (ESRD): Code(s): N18.6 - End stage renal disease Status: Chronic Assessment and Plan: * HD tomorrow * dry ultrafiltration to day for fluid removal that was limited yesterday * continue Fri/Fri/Friday dialysis schedule while hospitalized * follow electrolytes, volume status, and clearance (2) Hyperkalemia: Code(s): E87.5 - Hyperkalemia Status: Acute Assessment and Plan: * resolved * as noted on admission labs * should correct with dialysis * follow trend (3) Atrial fibrillation with slow ventricular response: Code(s): I48.91 - Unspecified atrial fibrillation Status: Acute Assessment and Plan: * as noted on admission * heart rate have been as low as high 30s * possibly contributing to #4 * carvedilol on hold * Cardiology recommendation noted * follow telemetry * on anticoagulation with eliquis (4) Generalized weakness: Code(s): R53.1 - Weakness Status: Acute Assessment and Plan: * as noted on admission * related to #3 (?) * PT/OT following * follow symptoms (5) Hypotension: Code(s): I95.9 - Hypotension, unspecified Status: Chronic Assessment and Plan: * chronic issue at baseline * on midodrine therapy * contributing to #4 (?) * follow trend of hemodynamics (6) Anemia: Code(s): D64.9 - Anemia, unspecified Status: Chronic Assessment and Plan: * due to ESRD * Retacrit with HD * follow trend of H/H (7) Diabetes: Code(s): E11.9 - Type 2 diabetes mellitus without complications Status: Chronic Assessment and Plan: * follow accu-cheks * glycemic control per hospitalists Will continue to follow. Subjective Date/time seen: 07/13/24 11:16 Interval history: Follow-up for end stage renal disease on hemodialysis. Tolerating dry ultrafiltration treatment at the time of my visit (seen on DUF at 11:05AM); tolerated dialysis treatment yesterday without issue but fluid removal was limited by hemodynamics/chronic hypotension; no apparent distress but still feels quite weak; no other issues/events overnight or earlier this AM. Exam 2 Narrative: General: WD/WN male in NAD Heart: normal S1 and S2; IRRR, no rub Lungs: clear anteriorly Abdomen: soft, nontender, nondistended, positive bowel sounds Extremities: no cyanosis or clubbing, 1 - 2+ edema Skin: warm and dry Objective Data Vital Signs Vital Signs: Vital Signs Temp Pulse Resp BP Pulse Ox O2 Del Method 07/13/24 11:15 47 L 101/49 L 07/13/24 11:00 42 L 95/52 L 07/13/24 10:45 46 L 92/46 L 07/13/24 10:30 74 93/41 L 07/13/24 10:15 58 L 93/41 L 07/13/24 10:00 46 L 07/13/24 10:00 55 L 84/42 L 07/13/24 09:45 51 L 81/24 L 07/13/24 09:30 53 L 80/36 L 07/13/24 09:15 56 L 81/41 L 07/13/24 09:00 54 L 84/41 L 07/13/24 08:43 97.9 F 58 L 18 89/49 L 07/13/24 08:00 55 L 07/13/24 07:43 97.6 F 55 L 16 93/49 L 93 07/13/24 02:00 53 L 07/13/24 00:00 48 L 07/13/24 00:00 53 L 20 96 Room Air 07/12/24 23:57 98.7 F 53 L 20 104/53 L 96 07/12/24 22:36 Room Air 07/12/24 22:34 97.4 F L 49 L 20 91/45 L 92 07/12/24 22:24 45 L 12 100 Room Air 07/12/24 22:00 52 L 07/12/24 22:00 97.4 F L 49 L 20 91/45 L 92 07/12/24 19:19 97.5 F L 45 L 12 92/51 L 100 07/12/24 19:15 57 L 96/43 L 07/12/24 19:03 53 L 92/53 L 07/12/24 19:00 44 L 86/50 L 07/12/24 18:45 43 L 87/48 L 07/12/24 18:30 59 L 92/49 L Intake/Output Intake/Output: Intake & Output 07/10/24 07/11/24 07/12/24 07/13/24 23:59 23:59 23:59 23:59 Intake Total 50 1150 Output Total 1999 1999 Balance -[id number] -912 Meds/Results Medications: Active Medications Generic Name Dose Route Start Last Admin Trade Name Freq PRN Reason Stop Dose Admin Acetaminophen 650 mg 07/12/24 20:08 Acetaminophen 325 Mg Tablet PO Q6H PRN Mild Pain (1-3) or Fever Albuterol 2 puff 07/12/24 23:57 Albuterol Sulfate (*Sp) Aerosol 1 Puff INHALATION Q6HRT PRN sob/wheezing Allopurinol 100 mg 07/13/24 09:00 07/13/24 12:58 Allopurinol 100 Mg Tablet PO 100 mg DAILY CESAR Administration Apixaban 2.5 mg 07/13/24 09:00 07/13/24 12:53 Apixaban 2.5 Mg Tablet PO 2.5 mg Q12HR CESAR Administration Atorvastatin Calcium 10 mg 07/13/24 09:00 07/13/24 12:54 Atorvastatin 10 Mg Tablet PO 10 mg DAILY CESAR Administration Bumetanide 1 mg 07/13/24 09:00 07/13/24 17:53 Bumetanide 1 Mg Tablet PO 1 mg BID CESAR Administration Calcitriol 0.25 mcg 07/14/24 09:00 Calcitriol 0.25 Mcg Capsule PO SuMoWeFr [facility] Calcium Acetate 1,334 mg 07/13/24 08:00 07/13/24 17:53 Calcium Acetate 667 Mg Tablet PO 1,334 mg TIDWM CESAR Administration Cyanocobalamin 1,000 mcg 07/13/24 09:00 07/13/24 12:53 Cyanocobalamin 1,000 Mcg Tablet PO 1,000 mcg DAILY CESAR Administration Dextrose 12.5 gm 07/12/24 20:08 Dextrose 50% 25 Gm/50 Ml Syringe IV PUSH PRN PRN Hypoglycemia Protocol Ferrous Sulfate 650 mg 07/13/24 09:00 07/13/24 12:54 Ferrous Sulfate [address] PO 650 mg Q48H CESAR Administration Fluticasone/Umeclidinium/Vilanterol 1 puff 07/13/24 09:00 07/13/24 08:50 Fluticasone/Umeclidin/Vilanter 100-62.5-25 Mcg Ellipta INHALATION Not Given DAILY [facility] Gabapentin 300 mg 07/13/24 21:00 Gabapentin 300 Mg Capsule PO HS CESAR Glucagon 1 mg 07/12/24 20:08 Glucagon For Inj 1 Mg Vial IM PRN PRN Hypoglycemia Protocol Glucose 15 gm 07/12/24 20:08 Glucose Oral Gel 15 Gm Of Glucse In 37.5 Gm Tube PO PRN PRN Hypoglycemia Protocol Albumin Human 50 mls @ 999 mls/hr 07/12/24 12:46 07/12/24 16:28 Albutein IVPB 08/11/24 12:45 999 mls/hr Q10M PRN Administration HYPOTENSION Dextrose 1,000 mls @ 100 mls/hr 07/12/24 20:08 Dextrose 5% 1,000 Ml IVPB PRN PRN Hypoglycemia Protocol Albumin Human 50 mls @ 999 mls/hr 07/13/24 08:21 Albutein IVPB 07/14/24 08:20 Q10M PRN HYPOTENSION Insulin Aspart 3 - 6 units 07/13/24 08:00 07/13/24 17:54 Insulin Aspart (*Bkc) 100 Units/Ml SUB-Q Not Given TIDWM CESAR Protocol Insulin Aspart 1 - 3 units 07/12/24 21:00 07/12/24 23:42 Insulin Aspart (*Bkc) 100 Units/Ml SUB-Q Not Given HS [facility] Protocol Midodrine 10 mg 07/12/24 23:57 07/13/24 08:28 Midodrine Hcl 10 Mg Tablet PO 10 mg WITH DIALYSIS PRN Administration hypotension with dialysis Tramadol HCl 50 mg 07/12/24 23:57 Tramadol Hcl (*Crx) 50 Mg Tablet PO Q8H PRN pain 4-6 Vitamin D 2,000 units 07/13/24 09:00 07/13/24 12:53 Cholecalciferol 1,000 Units Tablet PO 2,000 units DAILY CESAR Administration Radiology Results: ITS Impressions Chest X-Ray 07/12/24 10:59 Impression: 1: Cardiomegaly with interstitial edema. Labs Labs: Laboratory Tests 07/13/24 05:00 07/13/24 08:27 Calcium 9.2 Magnesium 2.2 Total Bilirubin 2.3 H AST 29 ALT 16 Alkaline Phosphatase 97 Total Protein 7.0 Albumin 3.4 L Microbiology 07/12/24 10:02 Blood Blood Culture - Preliminary 07/12/24 10:03 Blood Blood Culture - Preliminary
[2024-07-13 11:36] LABS: Thyroid Stimulating Hormone Reflex 0.047 uIU/mL (0.465-4.68)
[2024-07-13 12:10] LABS: Free T4 Free Thyroxine Reflex 1.92 ng/dL (0.78-2.19)
--- NOTE | 2024-07-13 12:38 | PC.NURSE ---
pt returned from dialysis, given albumin per dialysis nurse, 2L removed during treatment
[2024-07-13] MEDS: BUMETANIDE 1 MG TABLET PO ×2 (12:52→17:53)
[2024-07-13] MEDS: CALCIUM ACETATE 667 MG TABLET 1334 MG PO ×2 (12:52→17:53)
[2024-07-13] MEDS: CHOLECALCIFEROL 1,000 UNITS TABLET 2000 UNITS PO (12:53)
[2024-07-13] MEDS: APIXABAN 2.5 MG TABLET PO ×2 (12:53→21:31)
[2024-07-13] MEDS: CYANOCOBALAMIN 1,000 MCG TABLET 1000 MCG PO (12:53)
[2024-07-13] MEDS: FERROUS SULFATE 325 MG TABLET DR 650 MG PO (12:54)
[2024-07-13] MEDS: ATORVASTATIN 10 MG TABLET PO (12:54)
[2024-07-13] MEDS: allopurinoL 100 MG TABLET PO (12:58)
[2024-07-13 13:07] LABS: Total Triiodothyronine (T3) 0.62 NG/ML (0.97-1.69)
--- NOTE | 2024-07-13 13:25 | PM.IMPN ---
Progress Note: A&P Assessment and Plan (1) Type 2 diabetes mellitus with diabetic neuropathy: Qualifiers: Diabetes mellitus group home insulin use: without terminal operations supervisor use Qualified Code(s): E11.40 - Type 2 diabetes mellitus with diabetic neuropathy, unspecified Code(s): E11.40 - Type 2 diabetes mellitus with diabetic neuropathy, unspecified Status: Chronic (2) Anemia of chronic disease: Code(s): D63.8 - Anemia in other chronic diseases classified elsewhere Status: Acute (3) Hypotension: Code(s): I95.9 - Hypotension, unspecified Status: Acute (4) End-stage renal disease on hemodialysis: Code(s): N18.6 - End stage renal disease; Z99.2 - Dependence on renal dialysis Status: Acute (5) Hyperkalemia: Code(s): E87.5 - Hyperkalemia Status: Acute (6) Atrial fibrillation with slow ventricular response: Code(s): I48.91 - Unspecified atrial fibrillation Status: Acute (7) Symptomatic bradycardia: Code(s): R00.1 - Bradycardia, unspecified Status: Acute (8) Bradycardia: Code(s): R00.1 - Bradycardia, unspecified Status: Acute Plan (1) Hyperkalemia: Code(s): E87.5 - Hyperkalemia Status: Acute (2) Hypotension: Code(s): I95.9 - Hypotension, unspecified Status: Acute (3) Atrial fibrillation with slow ventricular response: Code(s): I48.91 - Unspecified atrial fibrillation Status: Acute (4) End-stage renal disease on hemodialysis: Code(s): N18.6 - End stage renal disease; Z99.2 - Dependence on renal dialysis Status: Acute (5) Type 2 diabetes mellitus with diabetic neuropathy: Qualifiers: Diabetes mellitus terminal operations supervisor insulin use: without terminal operations supervisor use Qualified Code(s): E11.40 - Type 2 diabetes mellitus with diabetic neuropathy, unspecified Code(s): E11.40 - Type 2 diabetes mellitus with diabetic neuropathy, unspecified Status: Chronic (6) Anemia of chronic disease: Code(s): D63.8 - Anemia in other chronic diseases classified elsewhere Status: Acute General weakness Likely secondary to multiple comorbidities, aggravated by bradycardia, anemia, hypotension and end-stage renal disease Patient has risk of fall Treat underlying disease Consult PT OT social science manager for evaluation and assisting placement Atrial fibrillation bradycardia bradycardic and is in slow atrial fibrillation. Consult tank furnace operator for evaluation treatment Cultures recommend continue anticoagulation with Eliquis, no indication for pacemaker Hypertension Continue midodrine per tank furnace operator recommendation End-stage renal disease Consult operations support professionals for dialysis Follow-up BMP Chronic anemia Likely secondary to chronic renal disease No obvious bleeding Follow-up CBC, ferritin, iron level Consult operations support professionals for evaluation and treatment hyperkalemia Patient is on dialysis Follow-up BMP Type 2 diabetes Continue sliding scale insulin, Accu-Cheks, and hypoglycemic protocol. Subjective Date/time seen: 07/13/24 13:25 Interval history: I saw examined patient in present the patient's . Patient still has weakness, cannot tolerate the exercise. Patient denies chest pain, shortness breast abdomen pain nausea vomiting diarrhea. Patient is afebrile, blood pressure stable on lower side, heart rate still low Exam Narrative: GENERAL: Pleasant, in no acute distress. Well-nourished. - EYES: EOMI. Anicteric. - HENT: Moist mucous membranes. - LUNGS: Clear to auscultation bilaterally, no wheezing, rhonchi, or rales. - CARDIOVASCULAR: Irregular irregular rhythm, bradycardia. No murmur. No JVD. - ABDOMEN: Soft, non-tender and non-distended. No palpable masses. - EXTREMITIES: No edema. Peripheral pulses 2+. Non-tender. - NEUROLOGIC: No focal neurological deficits. CN II-XII grossly intact. - PSYCHIATRIC: Awake, Alert and oriented x 3. Appropriate mood and affect. General weakness - SKIN: No rashes or lesions. Warm. - LYMPH: No cervical lymphadenopathy. Objective Data Vital Signs Vital Signs: Vital Signs - 24 hr 07/12/24 13:46 07/12/24 13:54 07/12/24 14:00 Temperature Pulse Rate 45 L 41 L 47 L Respiratory Rate 9 L 12 10 L Blood Pressure 88/52 L 88/59 L Pulse Oximetry 99 99 Oxygen Delivery Oxygen Flow Rate 07/12/24 14:01 07/12/24 14:15 07/12/24 14:16 Temperature Pulse Rate 39 L 44 L 43 L Respiratory Rate 11 L 9 L 10 L Blood Pressure 89/53 L 91/53 L Pulse Oximetry 99 99 100 Oxygen Delivery Oxygen Flow Rate 07/12/24 14:31 07/12/24 14:32 07/12/24 15:02 Temperature 98.1 F Pulse Rate 46 L 47 L 50 L Respiratory Rate 21 H 9 L 16 Blood Pressure 95/57 L 91/51 L Pulse Oximetry 92 97 100 Oxygen Delivery Oxygen Flow Rate 07/12/24 15:28 07/12/24 15:28 07/12/24 15:45 Temperature Pulse Rate 50 L 41 L Respiratory Rate Blood Pressure 80/46 L 87/54 L Pulse Oximetry Oxygen Delivery Oxygen Flow Rate 2 07/12/24 16:00 07/12/24 16:15 07/12/24 16:30 Temperature Pulse Rate 45 L 49 L 46 L Respiratory Rate Blood Pressure 97/52 L 95/53 L 99/47 L Pulse Oximetry Oxygen Delivery Oxygen Flow Rate 07/12/24 16:45 07/12/24 17:00 07/12/24 17:09 Temperature Pulse Rate 42 L 48 L 50 L Respiratory Rate 16 Blood Pressure 90/50 L 100/50 L Pulse Oximetry 100 Oxygen Delivery Oxygen Flow Rate 07/12/24 17:15 07/12/24 17:30 07/12/24 17:45 Temperature Pulse Rate 50 L 54 L 48 L Respiratory Rate Blood Pressure 94/59 L 105/54 L 104/65 Pulse Oximetry Oxygen Delivery Oxygen Flow Rate 07/12/24 18:00 07/12/24 18:10 07/12/24 18:15 Temperature Pulse Rate 54 L 60 51 L Respiratory Rate Blood Pressure 106/54 L 92/46 L Pulse Oximetry 100 Oxygen Delivery Oxygen Flow Rate 07/12/24 18:30 07/12/24 18:45 07/12/24 19:00 Temperature Pulse Rate 59 L 43 L 44 L Respiratory Rate Blood Pressure 92/49 L 87/48 L 86/50 L Pulse Oximetry Oxygen Delivery Oxygen Flow Rate 07/12/24 19:03 07/12/24 19:15 07/12/24 19:19 Temperature 97.5 F L Pulse Rate 53 L 57 L 45 L Respiratory Rate 12 Blood Pressure 92/53 L 96/43 L 92/51 L Pulse Oximetry 100 Oxygen Delivery Oxygen Flow Rate 07/12/24 22:00 07/12/24 22:00 07/12/24 22:24 Temperature 97.4 F L Pulse Rate 49 L 52 L 45 L Respiratory Rate 20 12 Blood Pressure 91/45 L Pulse Oximetry 92 100 Oxygen Delivery Room Air Oxygen Flow Rate 07/12/24 22:34 07/12/24 22:36 07/12/24 23:57 Temperature 97.4 F L 98.7 F Pulse Rate 49 L 53 L Respiratory Rate 20 20 Blood Pressure 91/45 L 104/53 L Pulse Oximetry 92 96 Oxygen Delivery Room Air Oxygen Flow Rate 07/13/24 00:00 07/13/24 00:00 07/13/24 02:00 Temperature Pulse Rate 53 L 48 L 53 L Respiratory Rate 20 Blood Pressure Pulse Oximetry 96 Oxygen Delivery Room Air Oxygen Flow Rate 07/13/24 07:43 07/13/24 08:00 07/13/24 08:43 Temperature 97.6 F 97.9 F Pulse Rate 55 L 55 L 58 L Respiratory Rate 16 18 Blood Pressure 93/49 L 89/49 L Pulse Oximetry 93 Oxygen Delivery Oxygen Flow Rate 07/13/24 09:00 07/13/24 09:15 07/13/24 09:30 Temperature Pulse Rate 54 L 56 L 53 L Respiratory Rate Blood Pressure 84/41 L 81/41 L 80/36 L Pulse Oximetry Oxygen Delivery Oxygen Flow Rate 07/13/24 09:45 07/13/24 10:00 07/13/24 10:00 Temperature Pulse Rate 51 L 55 L 46 L Respiratory Rate Blood Pressure 81/24 L 84/42 L Pulse Oximetry Oxygen Delivery Oxygen Flow Rate 07/13/24 10:15 07/13/24 10:30 07/13/24 10:45 Temperature Pulse Rate 58 L 74 46 L Respiratory Rate Blood Pressure 93/41 L 93/41 L 92/46 L Pulse Oximetry Oxygen Delivery Oxygen Flow Rate 07/13/24 11:00 07/13/24 11:15 07/13/24 11:30 Temperature Pulse Rate 42 L 47 L 43 L Respiratory Rate Blood Pressure 95/52 L 101/49 L 89/50 L Pulse Oximetry Oxygen Delivery Oxygen Flow Rate 07/13/24 11:45 07/13/24 12:01 07/13/24 12:16 Temperature 97.0 F L Pulse Rate 50 L 45 L 48 L Respiratory Rate 18 Blood Pressure 92/55 L 104/55 L 98/46 L Pulse Oximetry Oxygen Delivery Oxygen Flow Rate Intake/Output Intake/Output: Intake & Output 07/10/24 07/11/24 07/12/24 07/13/24 23:59 23:59 23:59 23:59 Intake Total 50 120 Output Total 1999 1999 Balance -1950 -188 Meds/Results Medications: Active Medications Generic Name Dose Route Start Last Admin Trade Name Freq PRN Reason Stop Dose Admin Acetaminophen 650 mg 07/12/24 20:08 Acetaminophen 325 Mg Tablet PO Q6H PRN Mild Pain (1-3) or Fever Albuterol 2 puff 07/12/24 23:57 Albuterol Sulfate (*Sp) Aerosol 1 Puff INHALATION Q6HRT PRN sob/wheezing Allopurinol 100 mg 07/13/24 09:00 07/13/24 12:58 Allopurinol 100 Mg Tablet PO 100 mg DAILY CESAR Administration Apixaban 2.5 mg 07/13/24 09:00 07/13/24 12:53 Apixaban 2.5 Mg Tablet PO 2.5 mg Q12HR CESAR Administration Atorvastatin Calcium 10 mg 07/13/24 09:00 07/13/24 12:54 Atorvastatin 10 Mg Tablet PO 10 mg DAILY CESAR Administration Bumetanide 1 mg 07/13/24 09:00 07/13/24 12:52 Bumetanide 1 Mg Tablet PO 1 mg BID CESAR Administration Calcitriol 0.25 mcg 07/14/24 09:00 Calcitriol 0.25 Mcg Capsule PO SuMoWeFr [facility] Calcium Acetate 1,334 mg 07/13/24 08:00 07/13/24 12:59 Calcium Acetate 667 Mg Tablet PO Not Given TIDWM CESAR Cyanocobalamin 1,000 mcg 07/13/24 09:00 07/13/24 12:53 Cyanocobalamin 1,000 Mcg Tablet PO 1,000 mcg DAILY CESAR Administration Dextrose 12.5 gm 07/12/24 20:08 Dextrose 50% 25 Gm/50 Ml Syringe IV PUSH PRN PRN Hypoglycemia Protocol Ferrous Sulfate 650 mg 07/13/24 09:00 07/13/24 12:54 Ferrous Sulfate [address] PO 650 mg Q48H CESAR Administration Fluticasone/Umeclidinium/Vilanterol 1 puff 07/13/24 09:00 07/13/24 08:50 Fluticasone/Umeclidin/Vilanter 100-62.5-25 Mcg Ellipta INHALATION Not Given DAILY CESAR Gabapentin 300 mg 07/13/24 21:00 Gabapentin 300 Mg Capsule PO HS [facility] Glucagon 1 mg 07/12/24 20:08 Glucagon For Inj 1 Mg Vial IM PRN PRN Hypoglycemia Protocol Glucose 15 gm 07/12/24 20:08 Glucose Oral Gel 15 Gm Of Glucse In 37.5 Gm Tube PO PRN PRN Hypoglycemia Protocol Albumin Human 50 mls @ 999 mls/hr 07/12/24 12:46 07/12/24 16:28 Albutein IVPB 08/11/24 12:45 999 mls/hr Q10M PRN Administration HYPOTENSION Dextrose 1,000 mls @ 100 mls/hr 07/12/24 20:08 Dextrose 5% 1,000 Ml IVPB PRN PRN Hypoglycemia Protocol Albumin Human 50 mls @ 999 mls/hr 07/13/24 08:21 Albutein IVPB 07/14/24 08:20 Q10M PRN HYPOTENSION Insulin Aspart 3 - 6 units 07/13/24 08:00 07/13/24 12:51 Insulin Aspart (*Bkc) 100 Units/Ml SUB-Q Not Given TIDWM [facility] Protocol Insulin Aspart 1 - 3 units 07/12/24 21:00 07/12/24 23:42 Insulin Aspart (*Bkc) 100 Units/Ml SUB-Q Not Given HS [facility] Protocol Midodrine 10 mg 07/12/24 23:57 07/13/24 08:28 Midodrine Hcl 10 Mg Tablet PO 10 mg WITH DIALYSIS PRN Administration hypotension with dialysis Tramadol HCl 50 mg 07/12/24 23:57 Tramadol Hcl (*Crx) 50 Mg Tablet PO Q8H PRN pain 4-6 Vitamin D 2,000 units 07/13/24 09:00 07/13/24 12:53 Cholecalciferol 1,000 Units Tablet PO 2,000 units DAILY CESAR Administration Radiology Results: ITS Impressions Chest X-Ray 07/12/24 10:59 Impression: 1: Cardiomegaly with interstitial edema. Labs Labs: Laboratory Results - last 24 hr 07/12/24 07/12/24 07/13/24 10:05 22:18 05:00 WBC 4.8 RBC 3.60 L Hgb 11.8 L Hct 37.4 L MCV 103.9 H MCH 32.8 MCHC 31.6 L RDW 19.9 H Plt Count 69 L MPV 12.3 H % Immature Plt Fraction 7.2 Sodium Potassium Chloride Carbon Dioxide Anion Gap BUN Creatinine Estim Creat Clear Calc Estimated GFR Glucose POC Capillary Glucose 182 H Calcium Magnesium Total Bilirubin AST ALT Alkaline Phosphatase Total Protein Albumin TSH (Reflex) Free T4 Total T3 Hep Bs Antigen Negative Hep Bs Antibody Negative 07/13/24 07/13/24 07/13/24 05:15 07:48 08:27 WBC RBC Hgb Hct MCV MCH MCHC RDW Plt Count MPV % Immature Plt Fraction Sodium 139 Potassium 4.9 Chloride 101 Carbon Dioxide 28 Anion Gap 10 BUN 41 H D Creatinine 5.60 H Estim Creat Clear Calc 11 Estimated GFR 12 L Glucose 158 H POC Capillary Glucose 151 H Calcium 9.2 Magnesium 2.2 Total Bilirubin 2.3 H AST 29 ALT 16 Alkaline Phosphatase 97 Total Protein 7.0 Albumin 3.4 L TSH (Reflex) 0.047 L Free T4 1.92 Total T3 0.62 L Hep Bs Antigen Hep Bs Antibody
[2024-07-13 17:01] LABS: Glucose Point of Care 172 mg/dl (65-105)
[2024-07-13 20:47] LABS: Glucose Point of Care 183 mg/dl (65-105)
[2024-07-13] MEDS: GABAPENTIN 300 MG CAPSULE PO (21:31)
[2024-07-14] VITALS (32 sets, daily range): BP systolic 87–107; BP diastolic 42–58; PULSE 43–109; RESP 16–20; TEMP 36.2–37; O2SAT 91–100
[2024-07-14 05:30] LABS: Basophils Percent Auto 0.7 % (0.2-1.2); Eosinophils Percent Auto 0.7 % (0-4.4); Hematocrit 37.1 % (42.0-52.0); Hemoglobin 12.1 g/dL (14.0-18.0); Immature Granulocyte Absolute 0.02 K/mm3 (0.00-0.031); Immature Granulocyte Percent A 0.4 % (0-0.5); Immature Platelet Fraction Pct 6.1 % (0.9-11.2); Lymphocytes Absolute Auto 0.97 K/mm3 (0.9-3.2); Lymphocytes Percent Auto 17.4 % (18.3-44.2); Mean Corpuscular HGB Conc 32.6 g/dl (32-36); Mean Corpuscular Hemoglobin 33.1 pg (26-34); Mean Corpuscular Volume 101.4 fl (80-100); Mean Platelet Volume 10.8 fl (7.4-10.4); Monocytes Percent Auto 17.2 % (2.6-8.5); Neutrophils Absolute Auto 3.6 K/mm3 (1.3-6.7); Neutrophils Percent Auto 63.6 % (45.5-73.1); Platelet Count Result 71 k/mm3 (150-375); Red Blood Count 3.66 M/mm3 (4.6-6.20); Red Cell Distribution Width 19.5 % (11.5-14.5); White Blood Count 5.6 K/mm3 (4.5-10.0)
[2024-07-14 05:46] LABS: Albumin Level 3.4 g/dL (3.5-5.1); Anion Gap 9 mmol/L (4-12); Blood Urea Nitrogen 50 mg/dL (9-20); Calcium 9.2 mg/dL (8.4-10.2); Carbon Dioxide 28 mmol/L (22-30); Chloride 100 mmol/L (98-107); Estimated CRCL calculation 9 ml/min; Estimated Glomerular Filt Rate 9; Glucose 144 mg/dL (65-110); Magnesium 2.1 mg/dL (1.6-2.3); Phosphorus 4.8 mg/dL (2.5-4.5); Potassium 4.6 mmol/L (3.4-5.0); Sodium 137 mmol/L (137-145)
[2024-07-14] MEDS: FLUTICASONE/UMECLIDIN/VILANTER 100-62.5-25 MCG ELLIPTA 1 PUFF INHALATION (07:20)
[2024-07-14 07:50] LABS: Glucose Point of Care 153 mg/dl (65-105)
[2024-07-14] MEDS: ATORVASTATIN 10 MG TABLET PO (08:24)
[2024-07-14] MEDS: CYANOCOBALAMIN 1,000 MCG TABLET 1000 MCG PO (08:24)
[2024-07-14] MEDS: CHOLECALCIFEROL 1,000 UNITS TABLET 2000 UNITS PO (08:24)
[2024-07-14] MEDS: APIXABAN 2.5 MG TABLET PO ×2 (08:24→20:25)
[2024-07-14] MEDS: BUMETANIDE 1 MG TABLET PO ×2 (08:24→18:24)
[2024-07-14] MEDS: allopurinoL 100 MG TABLET PO (08:24)
[2024-07-14] MEDS: CALCIUM ACETATE 667 MG TABLET 1334 MG PO ×2 (08:24→18:24)
[2024-07-14] MEDS: calcitrioL 0.25 MCG CAPSULE PO (08:25)
[2024-07-14] MEDS: ACETAMINOPHEN 325 MG TABLET 650 MG PO (08:28)
--- NOTE | 2024-07-14 09:37 | P.PNIM_ITS ---
Progress Note: A&P Assessment and Plan (1) Type 2 diabetes mellitus with diabetic neuropathy: Qualifiers: Diabetes mellitus nursing home insulin use: without geospatial imagery intelligence analyst use Qualified Code(s): E11.40 - Type 2 diabetes mellitus with diabetic neuropathy, unspecified Code(s): E11.40 - Type 2 diabetes mellitus with diabetic neuropathy, unspecified Status: Chronic (2) Anemia of chronic disease: Code(s): D63.8 - Anemia in other chronic diseases classified elsewhere Status: Acute (3) Hypotension: Code(s): I95.9 - Hypotension, unspecified Status: Acute (4) End-stage renal disease on hemodialysis: Code(s): N18.6 - End stage renal disease; Z99.2 - Dependence on renal dialysis Status: Acute (5) Hyperkalemia: Code(s): E87.5 - Hyperkalemia Status: Acute (6) Atrial fibrillation with slow ventricular response: Code(s): I48.91 - Unspecified atrial fibrillation Status: Acute (7) Symptomatic bradycardia: Code(s): R00.1 - Bradycardia, unspecified Status: Acute (8) Bradycardia: Code(s): R00.1 - Bradycardia, unspecified Status: Acute Plan (1) Hyperkalemia: Code(s): E87.5 - Hyperkalemia Status: Acute (2) Hypotension: Code(s): I95.9 - Hypotension, unspecified Status: Acute (3) Atrial fibrillation with slow ventricular response: Code(s): I48.91 - Unspecified atrial fibrillation Status: Acute (4) End-stage renal disease on hemodialysis: Code(s): N18.6 - End stage renal disease; Z99.2 - Dependence on renal dialysis Status: Acute (5) Type 2 diabetes mellitus with diabetic neuropathy: Qualifiers: Diabetes mellitus geospatial imagery intelligence analyst insulin use: without geospatial imagery intelligence analyst use Qualified Code(s): E11.40 - Type 2 diabetes mellitus with diabetic neuropathy, unspecified Code(s): E11.40 - Type 2 diabetes mellitus with diabetic neuropathy, unspecified Status: Chronic (6) Anemia of chronic disease: Code(s): D63.8 - Anemia in other chronic diseases classified elsewhere Status: Acute General weakness Likely secondary to multiple comorbidities, aggravated by bradycardia, anemia, hypotension and end-stage renal disease Patient has risk of fall Treat underlying disease Consult PT OT wardrobe specialty worker for evaluation and assisting placement Atrial fibrillation bradycardia bradycardic and is in slow atrial fibrillation. Consult milk receiver for evaluation treatment Appreciate cardiology's consultation. Decision Support Manager recommends continue anticoagulation with Eliquis, no indication for pacemaker Hypertension Continue midodrine per milk receiver recommendation End-stage renal disease Consult preschool adviser for dialysis Follow-up BMP Chronic anemia Likely secondary to chronic renal disease No obvious bleeding Follow-up CBC, ferritin, iron level Consult preschool adviser for evaluation and treatment hyperkalemia Patient is on dialysis Corrected Follow-up BMP Type 2 diabetes Continue sliding scale insulin, Accu-Cheks, and hypoglycemic protocol. Subjective Date/time seen: 07/14/24 09:37 Interval history: I saw examined patient when patient was on dialysis. Patient feels better, dyspnea is improving, appetite improving. Still has general weakness. Labs reviewed. Exam Narrative: GENERAL: Pleasant, in no acute distress. Well-nourished. - EYES: EOMI. Anicteric. - HENT: Moist mucous membranes. - LUNGS: Clear to auscultation bilateral ly, no wheezing, rhonchi, or rales. - CARDIOVASCULAR: Irregular irregular r hythm, bradycardia. No murmur. No JVD. - ABDOMEN: Soft, non-tender and non-dist ended. No palpable masses. - EXTREMITIES: No edema. Peripheral puls es 2+. Non-tender. - NEUROLOGIC: No focal neurological defi cits. CN II-XII grossly intact. - PSYCHIATRIC: Awake, Alert and oriented x 3. Appropriate mood and affect. Ge neral weakness - SKIN: No rashes or lesions. Warm. - LYMPH: No cervical lymphadenopathy. Objective Data Vital Signs Vital Signs: Vital Signs - 24 hr 07/13/24 09:45 07/13/24 10:00 07/13/24 10:00 Temperature Pulse Rate 51 L 55 L 46 L Respiratory Rate Blood Pressure 81/24 L 84/42 L Pulse Oximetry Oxygen Delivery 07/13/24 10:15 07/13/24 10:30 07/13/24 10:45 Temperature Pulse Rate 58 L 74 46 L Respiratory Rate Blood Pressure 93/41 L 93/41 L 92/46 L Pulse Oximetry Oxygen Delivery 07/13/24 11:00 07/13/24 11:15 07/13/24 11:30 Temperature Pulse Rate 42 L 47 L 43 L Respiratory Rate Blood Pressure 95/52 L 101/49 L 89/50 L Pulse Oximetry Oxygen Delivery 07/13/24 11:45 07/13/24 12:00 07/13/24 12:01 Temperature Pulse Rate 50 L 42 L 45 L Respiratory Rate Blood Pressure 92/55 L 104/55 L Pulse Oximetry Oxygen Delivery 07/13/24 12:16 07/13/24 14:00 07/13/24 16:00 Temperature 97.0 F L 97.4 F L Pulse Rate 48 L 48 L 53 L Respiratory Rate 18 20 Blood Pressure 98/46 L 90/57 L Pulse Oximetry 95 Oxygen Delivery 07/13/24 16:00 07/13/24 16:00 07/13/24 16:04 Temperature 97.4 F L Pulse Rate 53 L 52 L Respiratory Rate 20 Blood Pressure 90/57 L 116/94 H Pulse Oximetry 95 Oxygen Delivery 07/13/24 18:00 07/13/24 20:00 07/13/24 20:00 Temperature Pulse Rate 54 L 53 L 53 L Respiratory Rate 20 Blood Pressure Pulse Oximetry 96 Oxygen Delivery Room Air 07/13/24 20:56 07/13/24 20:58 07/13/24 20:59 Temperature 98.6 F Pulse Rate 56 L 56 L 57 L Respiratory Rate 20 Blood Pressure 90/45 L 90/45 L 92/40 L Pulse Oximetry 95 95 96 Oxygen Delivery 07/13/24 22:00 07/14/24 00:00 07/14/24 00:00 Temperature Pulse Rate 52 L 52 L 52 L Respiratory Rate 20 Blood Pressure Pulse Oximetry 92 Oxygen Delivery Room Air 07/14/24 00:17 07/14/24 02:00 07/14/24 03:56 Temperature 98.4 F Pulse Rate 53 L 48 L 44 L Respiratory Rate 20 20 Blood Pressure 93/42 L Pulse Oximetry 92 94 Oxygen Delivery Room Air 07/14/24 03:56 07/14/24 04:36 07/14/24 06:00 Temperature 97.8 F Pulse Rate 44 L 97 56 L Respiratory Rate 20 Blood Pressure 90/45 L Pulse Oximetry 91 Oxygen Delivery 07/14/24 07:54 07/14/24 08:00 Temperature 97.6 F Pulse Rate 53 L Respiratory Rate 18 Blood Pressure 96/52 L Pulse Oximetry 95 Oxygen Delivery Room Air Intake/Output Intake/Output: Intake & Output 07/11/24 07/12/24 07/13/24 07/14/24 23:59 23:59 23:59 23:59 Intake Total 50 1150 1460 Output Total 1999 1999 0 Balance -1950 -850 1460 Meds/Results Medications: Active Medications Generic Name Dose Route Start Last Admin Trade Name Freq PRN Reason Stop Dose Admin Acetaminophen 650 mg 07/12/24 20:08 07/14/24 08:28 Acetaminophen 325 Mg Tablet PO 650 mg Q6H PRN Administration Mild Pain (1-3) or Fever Albuterol 2 puff 07/12/24 23:57 Albuterol Sulfate (*Sp) Aerosol 1 Puff INHALATION Q6HRT PRN sob/wheezing Allopurinol 100 mg 07/13/24 09:00 07/14/24 08:24 Allopurinol 100 Mg Tablet PO 100 mg DAILY CESAR Administration Apixaban 2.5 mg 07/13/24 09:00 07/14/24 08:24 Apixaban 2.5 Mg Tablet PO 2.5 mg Q12HR CESAR Administration Atorvastatin Calcium 10 mg 07/13/24 09:00 07/14/24 08:24 Atorvastatin 10 Mg Tablet PO 10 mg DAILY CESAR Administration Bumetanide 1 mg 07/13/24 09:00 07/14/24 08:24 Bumetanide 1 Mg Tablet PO 1 mg BID CESAR Administration Calcitriol 0.25 mcg 07/14/24 09:00 07/14/24 08:25 Calcitriol 0.25 Mcg Capsule PO 0.25 mcg SuMoWeFr CESAR Administration Calcium Acetate 1,334 mg 07/13/24 08:00 07/14/24 08:24 Calcium Acetate 667 Mg Tablet PO 1,334 mg TIDWM CESAR Administration Cyanocobalamin 1,000 mcg 07/13/24 09:00 07/14/24 08:24 Cyanocobalamin 1,000 Mcg Tablet PO 1,000 mcg DAILY CESAR Administration Dextrose 12.5 gm 07/12/24 20:08 Dextrose 50% 25 Gm/50 Ml Syringe IV PUSH PRN PRN Hypoglycemia Protocol Epoetin Nino-epbx 4,000 units 07/14/24 20:00 Epoetin Nino-Epbx 4,000 Units/Ml Vial IV PUSH 07/14/24 20:01 ONCE ONE Ferrous Sulfate 650 mg 07/13/24 09:00 07/13/24 12:54 Ferrous Sulfate [address] PO 650 mg Q48H [facility]AS[facility] Administration Fluticasone/Umeclidinium/Vilanterol 1 puff 07/13/24 09:00 07/14/24 07:20 Fluticasone/Umeclidin/Vilanter 100-62.5-25 Mcg Ellipta INHALATION 1 puff DAILY CESAR Administration Gabapentin 300 mg 07/13/24 21:00 07/13/24 21:31 Gabapentin 300 Mg Capsule PO 300 mg HS CESAR Administration Glucagon 1 mg 07/12/24 20:08 Glucagon For Inj 1 Mg Vial IM PRN PRN Hypoglycemia Protocol Glucose 15 gm 07/12/24 20:08 Glucose Oral Gel 15 Gm Of Glucse In 37.5 Gm Tube PO PRN PRN Hypoglycemia Protocol Albumin Human 50 mls @ 999 mls/hr 07/12/24 12:46 07/12/24 16:28 Albutein IVPB 08/11/24 12:45 999 mls/hr Q10M PRN Administration HYPOTENSION Dextrose 1,000 mls @ 100 mls/hr 07/12/24 20:08 Dextrose 5% 1,000 Ml IVPB PRN PRN Hypoglycemia Protocol Insulin Aspart 3 - 6 units 07/13/24 08:00 07/14/24 08:22 Insulin Aspart (*Bkc) 100 Units/Ml SUB-Q Not Given TIDWM CESAR Protocol Insulin Aspart 1 - 3 units 07/12/24 21:00 07/13/24 21:31 Insulin Aspart (*Bkc) 100 Units/Ml SUB-Q Not Given HS CESAR Protocol Midodrine 10 mg 07/12/24 23:57 07/13/24 08:28 Midodrine Hcl 10 Mg Tablet PO 10 mg WITH DIALYSIS PRN Administration hypotension with dialysis Tramadol HCl 50 mg 07/12/24 23:57 Tramadol Hcl (*Crx) 50 Mg Tablet PO Q8H PRN pain 4-6 Vitamin D 2,000 units 07/13/24 09:00 07/14/24 08:24 Cholecalciferol 1,000 Units Tablet PO 2,000 units DAILY CESAR Administration Radiology Results: ITS Impressions Chest X-Ray 07/12/24 10:59 Impression: 1: Cardiomegaly with interstitial edema. Labs Labs: Laboratory Results - last 24 hr 07/13/24 07/13/24 07/13/24 05:15 15:44 20:04 WBC RBC Hgb Hct MCV MCH MCHC RDW Plt Count MPV Immature Gran % (Auto) Neut % (Auto) Lymph % (Auto) [place] % (Auto) Eos % (Auto) Baso % (Auto) Lymph # (Auto) [place] # (Auto) Eos # (Auto) Baso # (Auto) Abs Immat Gran (auto) Absolute Neuts (auto) Absolute Nucleated RBC Nucleated RBC % % Immature Plt Fraction Sodium Potassium Chloride Carbon Dioxide Anion Gap BUN Creatinine Estim Creat Clear Calc Estimated GFR Glucose POC Capillary Glucose 172 H 183 H Calcium Phosphorus Magnesium Albumin TSH (Reflex) 0.047 L Free T4 1.92 Total T3 0.62 L 07/14/24 07/14/24 04:51 07:19 WBC 5.6 RBC 3.66 L Hgb 12.1 L Hct 37.1 L MCV 101.4 H MCH 33.1 MCHC 32.6 RDW 19.5 H Plt Count 71 L MPV 10.8 H Immature Gran % (Auto) 0.4 Neut % (Auto) 63.6 Lymph % (Auto) 17.4 L [place] % (Auto) 17.2 H Eos % (Auto) 0.7 Baso % (Auto) 0.7 Lymph # (Auto) 0.97 [place] # (Auto) 1.0 H Eos # (Auto) 0.0 Baso # (Auto) 0.0 Abs Immat Gran (auto) 0.02 Absolute Neuts (auto) 3.6 Absolute Nucleated RBC 0.000 Nucleated RBC % 0.0 % Immature Plt Fraction 6.1 Sodium 137 Potassium 4.6 Chloride 100 Carbon Dioxide 28 Anion Gap 9 BUN 50 H Creatinine 6.80 H Estim Creat Clear Calc 9 Estimated GFR 9 L Glucose 144 H POC Capillary Glucose 153 H Calcium 9.2 Phosphorus 4.8 H Magnesium 2.1 Albumin 3.4 L TSH (Reflex) Free T4 Total T3
[2024-07-14] MEDS: MIDODRINE HCL 10 MG TABLET PO (09:59)
--- NOTE | 2024-07-14 12:11 | P.PNNP_ITS ---
Progress Note: A&P Assessment and Plan (1) End-stage renal disease (ESRD): Code(s): N18.6 - End stage renal disease Status: Chronic Assessment and Plan: * HD today * dry ultrafiltration (on 07/13) for fluid removal that was limited on HD treatment on 07/12 * continue Fri/Fri/Friday dialysis schedule while hospitalized * follow electrolytes, volume status, and clearance (2) Hyperkalemia: Code(s): E87.5 - Hyperkalemia Status: Acute Assessment and Plan: * resolved * as noted on admission labs * should correct with dialysis * follow trend (3) Atrial fibrillation with slow ventricular response: Code(s): I48.91 - Unspecified atrial fibrillation Status: Acute Assessment and Plan: * as noted on admission * heart rate have been as low as high 30s * possibly contributing to #4 * carvedilol on hold * Cardiology recommendation noted * follow telemetry * on anticoagulation with eliquis (4) Generalized weakness: Code(s): R53.1 - Weakness Status: Acute Assessment and Plan: * as noted on admission * related to #3 (?) * PT/OT following * follow symptoms (5) Hypotension: Code(s): I95.9 - Hypotension, unspecified Status: Chronic Assessment and Plan: * chronic issue at baseline * on midodrine therapy * contributing to #4 (?) * follow trend of hemodynamics (6) Anemia: Code(s): D64.9 - Anemia, unspecified Status: Chronic Assessment and Plan: * due to ESRD * Retacrit with HD * follow trend of H/H (7) Diabetes: Code(s): E11.9 - Type 2 diabetes mellitus without complications Status: Chronic Assessment and Plan: * follow accu-cheks * glycemic control per hospitalists Will continue to follow. Subjective Date/time seen: 07/14/24 12:11 Interval history: Follow-up for end stage renal disease on hemodialysis. Tolerated dry ultrafiltration session yesterday and tolerating dialysis treatment at the time of my visit (seen on HD at 12:00PM); still feels weak but attempting to work with PT/OT as tolerated; no other issues/events voiced; no other acute complaints to report. Exam 2 Narrative: General: WD/WN male in NAD Heart: normal S1 and S2; IRRR, no rub Lungs: clear anteriorly Abdomen: soft, nontender, nondistended, positive bowel sounds Extremities: no cyanosis or clubbing, 1 - 2+ edema Skin: warm and intact Objective Data Vital Signs Vital Signs: Vital Signs Temp Pulse Resp BP Pulse Ox O2 Del Method 07/14/24 12:00 43 L 95/53 L 07/14/24 11:45 57 L 95/49 L 07/14/24 11:30 51 L 90/51 L 07/14/24 11:15 50 L 93/51 L 07/14/24 11:00 53 L 105/58 L 07/14/24 10:45 44 L 90/57 L 07/14/24 10:30 50 L 101/51 L 07/14/24 10:22 49 L 97/52 L 07/14/24 10:10 97.5 F L 56 L 16 94/51 L 98 07/14/24 10:00 44 L 07/14/24 08:00 60 07/14/24 08:00 Room Air 07/14/24 07:54 97.6 F 53 L 18 96/52 L 95 07/14/24 06:00 56 L 07/14/24 04:36 97.8 F 97 20 90/45 L 91 07/14/24 03:56 44 L 07/14/24 03:56 44 L 20 94 Room Air 07/14/24 02:00 48 L 07/14/24 00:17 98.4 F 53 L 20 93/42 L 92 07/14/24 00:00 52 L 07/14/24 00:00 52 L 20 92 Room Air 07/13/24 22:00 52 L 07/13/24 20:59 57 L 92/40 L 96 07/13/24 20:58 56 L 90/45 L 95 07/13/24 20:56 98.6 F 56 L 20 90/45 L 95 07/13/24 20:00 53 L 07/13/24 20:00 53 L 20 96 Room Air 07/13/24 18:00 54 L 07/13/24 16:04 116/94 H 07/13/24 16:00 52 L 07/13/24 16:00 97.4 F L 53 L 20 90/57 L 95 07/13/24 16:00 97.4 F L 53 L 20 90/57 L 95 Intake/Output Intake/Output: Intake & Output 07/11/24 07/12/24 07/13/24 07/14/24 23:59 23:59 23:59 23:59 Intake Total 50 1150 1460 Output Total 1999 1999 0 Balance -1950 -850 1460 Meds/Results Medications: Active Medications Generic Name Dose Route Start Last Admin Trade Name Freq PRN Reason Stop Dose Admin Acetaminophen 650 mg 07/12/24 20:08 07/14/24 08:28 Acetaminophen 325 Mg Tablet PO 650 mg Q6H PRN Administration Mild Pain (1-3) or Fever Albuterol 2 puff 07/12/24 23:57 Albuterol Sulfate (*Sp) Aerosol 1 Puff INHALATION Q6HRT PRN sob/wheezing Allopurinol 100 mg 07/13/24 09:00 07/14/24 08:24 Allopurinol 100 Mg Tablet PO 100 mg DAILY CESAR Administration Apixaban 2.5 mg 07/13/24 09:00 07/14/24 08:24 Apixaban 2.5 Mg Tablet PO 2.5 mg Q12HR CESAR Administration Atorvastatin Calcium 10 mg 07/13/24 09:00 07/14/24 08:24 Atorvastatin 10 Mg Tablet PO 10 mg DAILY CESAR Administration Bumetanide 1 mg 07/13/24 09:00 07/14/24 08:24 Bumetanide 1 Mg Tablet PO 1 mg BID CESAR Administration Calcitriol 0.25 mcg 07/14/24 09:00 07/14/24 08:25 Calcitriol 0.25 Mcg Capsule PO 0.25 mcg SuMoWeFr CESAR Administration Calcium Acetate 1,334 mg 07/13/24 08:00 07/14/24 12:38 Calcium Acetate 667 Mg Tablet PO Not Given TIDWM CESAR Cyanocobalamin 1,000 mcg 07/13/24 09:00 07/14/24 08:24 Cyanocobalamin 1,000 Mcg Tablet PO 1,000 mcg DAILY CESAR Administration Dextrose 12.5 gm 07/12/24 20:08 Dextrose 50% 25 Gm/50 Ml Syringe IV PUSH PRN PRN Hypoglycemia Protocol Epoetin Nino-epbx 4,000 units 07/14/24 20:00 07/14/24 12:54 Epoetin Nino-Epbx 4,000 Units/Ml Vial IV PUSH 07/14/24 20:01 4,000 units ONCE ONE Administration Ferrous Sulfate 650 mg 07/13/24 09:00 07/13/24 12:54 Ferrous Sulfate [address] PO 650 mg Q48H CESAR Administration Fluticasone/Umeclidinium/Vilanterol 1 puff 07/13/24 09:00 07/14/24 07:20 Fluticasone/Umeclidin/Vilanter 100-62.5-25 Mcg Ellipta INHALATION 1 puff DAILY CESAR Administration Gabapentin 300 mg 07/13/24 21:00 07/13/24 21:31 Gabapentin 300 Mg Capsule PO 300 mg HS CESAR Administration Glucagon 1 mg 07/12/24 20:08 Glucagon For Inj 1 Mg Vial IM PRN PRN Hypoglycemia Protocol Glucose 15 gm 07/12/24 20:08 Glucose Oral Gel 15 Gm Of Glucse In 37.5 Gm Tube PO PRN PRN Hypoglycemia Protocol Albumin Human 50 mls @ 999 mls/hr 07/12/24 12:46 07/12/24 16:28 Albutein IVPB 08/11/24 12:45 999 mls/hr Q10M PRN Administration HYPOTENSION Dextrose 1,000 mls @ 100 mls/hr 07/12/24 20:08 Dextrose 5% 1,000 Ml IVPB PRN PRN Hypoglycemia Protocol Insulin Aspart 3 - 6 units 07/13/24 08:00 07/14/24 12:38 Insulin Aspart (*Bkc) 100 Units/Ml SUB-Q Not Given TIDWM CESAR Protocol Insulin Aspart 1 - 3 units 07/12/24 21:00 07/13/24 21:31 Insulin Aspart (*Bkc) 100 Units/Ml SUB-Q Not Given HS CESAR Protocol Midodrine 10 mg 07/12/24 23:57 07/14/24 09:59 Midodrine Hcl 10 Mg Tablet PO 10 mg WITH DIALYSIS PRN Administration hypotension with dialysis Tramadol HCl 50 mg 07/12/24 23:57 Tramadol Hcl (*Crx) 50 Mg Tablet PO Q8H PRN pain 4-6 Vitamin D 2,000 units 07/13/24 09:00 07/14/24 08:24 Cholecalciferol 1,000 Units Tablet PO 2,000 units DAILY CESAR Administration Radiology Results: ITS Impressions Chest X-Ray 07/12/24 10:59 Impression: 1: Cardiomegaly with interstitial edema. Labs Labs: Laboratory Tests 07/14/24 04:51 07/14/24 04:51 Calcium 9.2 Phosphorus 4.8 H Magnesium 2.1 Albumin 3.4 L
[2024-07-14] MEDS: EPOETIN ALFA-EPBX 4,000 UNITS/ML VIAL 4000 UNITS IV PUSH (12:54)
--- NOTE | 2024-07-14 14:48 | P.PNCA_ITS ---
Progress Note: A&P Assessment and Plan (1) Atrial fibrillation with slow ventricular response: Code(s): I48.91 - Unspecified atrial fibrillation Status: Acute Assessment and Plan: Remains in AFib with heart rate in the 50s Avoid AV veena agents If he remains fatigued and weak as an outpatient will assess for chronotropic competence (2) Hypotension: Code(s): I95.9 - Hypotension, unspecified Status: Acute Assessment and Plan: Continue midodrine on dialysis days. (3) End-stage renal disease on hemodialysis: Code(s): N18.6 - End stage renal disease; Z99.2 - Dependence on renal dialysis Status: Acute Assessment and Plan: Oh hemodialysis. Nephrology following along. Subjective Date/time seen: 07/14/24 14:48 Interval history: No acute events overnight tele: HR in the 50s, Afib Review of Systems Review of Systems: All systems reviewed & are unremarkable except as noted in HPI and below Exam Const: General: comfortable, no acute distress, alert and awake Orientation/consciousness: patient oriented x3 HENMT: Head: normal to inspection Eyes: General: appearance normal, both eyes and all related structures Pupils: Equal, round and reactive pupils present Neck: Neck: normal visual inspection, supple and no JVD Carotids: normal carotid upstroke Resp: Effort & Inspection: normal respiratory effort Auscultation: clear to auscultation bilaterally Cardio: Rate: bradycardic Rhythm: abnormal rhythm irregularly irregular Heart sounds: S1 normal heart sound present, S2 normal heart sound present and no murmurs GI: Auscultation: normal bowel sounds Skin: General skin exam: normal color Neuro: General: patient oriented x3 Cranial nerves: Yes Equal, round and reactive pupils present Extrem: General: edema (right pretibial and pedal edema worse than left) bilateral Psych: Appearance: grossly normal Mental Status: mental status grossly norm al Objective Data Vital Signs Vital Signs: Vital Signs - 24 hr 07/13/24 16:00 07/13/24 16:00 07/13/24 16:00 Temperature 36.3 C L 36.3 C L Pulse Rate 53 L 53 L 52 L Respiratory Rate 20 20 Blood Pressure 90/57 L 90/57 L Pulse Oximetry 95 95 Oxygen Delivery 07/13/24 16:04 07/13/24 18:00 07/13/24 20:00 Temperature Pulse Rate 54 L 53 L Respiratory Rate 20 Blood Pressure 116/94 H Pulse Oximetry 96 Oxygen Delivery Room Air 07/13/24 20:00 07/13/24 20:56 07/13/24 20:58 Temperature 37.0 C Pulse Rate 53 L 56 L 56 L Respiratory Rate 20 Blood Pressure 90/45 L 90/45 L Pulse Oximetry 95 95 Oxygen Delivery 07/13/24 20:59 07/13/24 22:00 07/14/24 00:00 Temperature Pulse Rate 57 L 52 L 52 L Respiratory Rate 20 Blood Pressure 92/40 L Pulse Oximetry 96 92 Oxygen Delivery Room Air 07/14/24 00:00 07/14/24 00:17 07/14/24 02:00 Temperature 36.9 C Pulse Rate 52 L 53 L 48 L Respiratory Rate 20 Blood Pressure 93/42 L Pulse Oximetry 92 Oxygen Delivery 07/14/24 03:56 07/14/24 03:56 07/14/24 04:36 Temperature 36.6 C Pulse Rate 44 L 44 L 97 Respiratory Rate 20 20 Blood Pressure 90/45 L Pulse Oximetry 94 91 Oxygen Delivery Room Air 07/14/24 06:00 07/14/24 07:54 07/14/24 08:00 Temperature 36.4 C Pulse Rate 56 L 53 L Respiratory Rate 18 Blood Pressure 96/52 L Pulse Oximetry 95 Oxygen Delivery Room Air 07/14/24 08:00 07/14/24 10:00 07/14/24 10:10 Temperature 36.4 C L Pulse Rate 60 44 L 56 L Respiratory Rate 16 Blood Pressure 94/51 L Pulse Oximetry 98 Oxygen Delivery 07/14/24 10:22 07/14/24 10:30 07/14/24 10:45 Temperature Pulse Rate 49 L 50 L 44 L Respiratory Rate Blood Pressure 97/52 L 101/51 L 90/57 L Pulse Oximetry Oxygen Delivery 07/14/24 11:00 07/14/24 11:15 07/14/24 11:30 Temperature Pulse Rate 53 L 50 L 51 L Respiratory Rate Blood Pressure 105/58 L 93/51 L 90/51 L Pulse Oximetry Oxygen Delivery 07/14/24 11:45 07/14/24 12:00 07/14/24 12:00 Temperature Pulse Rate 57 L 43 L 55 L Respiratory Rate Blood Pressure 95/49 L 95/53 L Pulse Oximetry Oxygen Delivery 07/14/24 12:15 07/14/24 12:30 07/14/24 12:45 Temperature Pulse Rate 58 L 50 L 50 L Respiratory Rate Blood Pressure 91/45 L 87/53 L 97/47 L Pulse Oximetry Oxygen Delivery 07/14/24 13:00 07/14/24 13:15 07/14/24 13:30 Temperature Pulse Rate 53 L 54 L 54 L Respiratory Rate Blood Pressure 101/57 L 107/53 L 98/55 L Pulse Oximetry Oxygen Delivery 07/14/24 13:45 07/14/24 14:00 07/14/24 14:12 Temperature Pulse Rate 70 53 L 54 L Respiratory Rate Blood Pressure 99/50 L 99/57 L 103/49 L Pulse Oximetry Oxygen Delivery 07/14/24 14:16 Temperature 36.5 C Pulse Rate 49 L Respiratory Rate 16 Blood Pressure 99/58 L Pulse Oximetry 100 Oxygen Delivery Intake/Output Intake/Output: Intake & Output 07/11/24 07/12/24 07/13/24 07/14/24 23:59 23:59 23:59 23:59 Intake Total 50 1150 1460 Output Total 1999 1999 0 Balance -1950 -850 1460 Meds/Results Medications: Active Medications Generic Name Dose Route Start Last Admin Trade Name Freq PRN Reason Stop Dose Admin Acetaminophen 650 mg 07/12/24 20:08 07/14/24 08:28 Acetaminophen 325 Mg Tablet PO 650 mg Q6H PRN Administration Mild Pain (1-3) or Fever Albuterol 2 puff 07/12/24 23:57 Albuterol Sulfate (*Sp) Aerosol 1 Puff INHALATION Q6HRT PRN sob/wheezing Allopurinol 100 mg 07/13/24 09:00 07/14/24 08:24 Allopurinol 100 Mg Tablet PO 100 mg DAILY CESAR Administration Apixaban 2.5 mg 07/13/24 09:00 07/14/24 08:24 Apixaban 2.5 Mg Tablet PO 2.5 mg Q12HR CESAR Administration Atorvastatin Calcium 10 mg 07/13/24 09:00 07/14/24 08:24 Atorvastatin 10 Mg Tablet PO 10 mg DAILY CESAR Administration Bumetanide 1 mg 07/13/24 09:00 07/14/24 08:24 Bumetanide 1 Mg Tablet PO 1 mg BID CESAR Administration Calcitriol 0.25 mcg 07/14/24 09:00 07/14/24 08:25 Calcitriol 0.25 Mcg Capsule PO 0.25 mcg SuMoWeFr CESAR Administration Calcium Acetate 1,334 mg 07/13/24 08:00 07/14/24 12:38 Calcium Acetate 667 Mg Tablet PO Not Given TIDWM CESAR Cyanocobalamin 1,000 mcg 07/13/24 09:00 07/14/24 08:24 Cyanocobalamin 1,000 Mcg Tablet PO 1,000 mcg DAILY CESAR Administration Dextrose 12.5 gm 07/12/24 20:08 Dextrose 50% 25 Gm/50 Ml Syringe IV PUSH PRN PRN Hypoglycemia Protocol Epoetin Nino-epbx 4,000 units 07/14/24 20:00 07/14/24 12:54 Epoetin Nino-Epbx 4,000 Units/Ml Vial IV PUSH 07/14/24 20:01 4,000 units ONCE ONE Administration Ferrous Sulfate 650 mg 07/13/24 09:00 07/13/24 12:54 Ferrous Sulfate [address] PO 650 mg Q48H CESAR Administration Fluticasone/Umeclidinium/Vilanterol 1 puff 07/13/24 09:00 07/14/24 07:20 Fluticasone/Umeclidin/Vilanter 100-62.5-25 Mcg Ellipta INHALATION 1 puff DAILY CESAR Administration Gabapentin 300 mg 07/13/24 21:00 07/13/24 21:31 Gabapentin 300 Mg Capsule PO 300 mg HS CESAR Administration Glucagon 1 mg 07/12/24 20:08 Glucagon For Inj 1 Mg Vial IM PRN PRN Hypoglycemia Protocol Glucose 15 gm 07/12/24 20:08 Glucose Oral Gel 15 Gm Of Glucse In 37.5 Gm Tube PO PRN PRN Hypoglycemia Protocol Albumin Human 50 mls @ 999 mls/hr 07/12/24 12:46 07/12/24 16:28 Albutein IVPB 08/11/24 12:45 999 mls/hr Q10M PRN Administration HYPOTENSION Dextrose 1,000 mls @ 100 mls/hr 07/12/24 20:08 Dextrose 5% 1,000 Ml IVPB PRN PRN Hypoglycemia Protocol Insulin Aspart 3 - 6 units 07/13/24 08:00 07/14/24 12:38 Insulin Aspart (*Bkc) 100 Units/Ml SUB-Q Not Given TID[facility] Protocol Insulin Aspart 1 - 3 units 07/12/24 21:00 07/13/24 21:31 Insulin Aspart (*Bkc) 100 Units/Ml SUB-Q Not Given HS [facility] Protocol Midodrine 10 mg 07/12/24 23:57 07/14/24 09:59 Midodrine Hcl 10 Mg Tablet PO 10 mg WITH DIALYSIS PRN Administration hypotension with dialysis Tramadol HCl 50 mg 07/12/24 23:57 Tramadol Hcl (*Crx) 50 Mg Tablet PO Q8H PRN pain 4-6 Vitamin D 2,000 units 07/13/24 09:00 07/14/24 08:24 Cholecalciferol 1,000 Units Tablet PO 2,000 units DAILY CESAR Administration Radiology Results: ITS Impressions Chest X-Ray 07/12/24 10:59 Impression: 1: Cardiomegaly with interstitial edema. Labs Labs: Laboratory Results - last 24 hr 07/13/24 07/13/24 07/14/24 15:44 20:04 04:51 WBC 5.6 RBC 3.66 L Hgb 12.1 L Hct 37.1 L MCV 101.4 H MCH 33.1 MCHC 32.6 RDW 19.5 H Plt Count 71 L MPV 10.8 H Immature Gran % (Auto) 0.4 Neut % (Auto) 63.6 Lymph % (Auto) 17.4 L [place] % (Auto) 17.2 H Eos % (Auto) 0.7 Baso % (Auto) 0.7 Lymph # (Auto) 0.97 [place] # (Auto) 1.0 H Eos # (Auto) 0.0 Baso # (Auto) 0.0 Abs Immat Gran (auto) 0.02 Absolute Neuts (auto) 3.6 Absolute Nucleated RBC 0.000 Nucleated RBC % 0.0 % Immature Plt Fraction 6.1 Sodium 137 Potassium 4.6 Chloride 100 Carbon Dioxide 28 Anion Gap 9 BUN 50 H Creatinine 6.80 H Estim Creat Clear Calc 9 Estimated GFR 9 L Glucose 144 H POC Capillary Glucose 172 H 183 H Calcium 9.2 Phosphorus 4.8 H Magnesium 2.1 Albumin 3.4 L 07/14/24 07:19 WBC RBC Hgb Hct MCV MCH MCHC RDW Plt Count MPV Immature Gran % (Auto) Neut % (Auto) Lymph % (Auto) [place] % (Auto) Eos % (Auto) Baso % (Auto) Lymph # (Auto) [place] # (Auto) Eos # (Auto) Baso # (Auto) Abs Immat Gran (auto) Absolute Neuts (auto) Absolute Nucleated RBC Nucleated RBC % % Immature Plt Fraction Sodium Potassium Chloride Carbon Dioxide Anion Gap BUN Creatinine Estim Creat Clear Calc Estimated GFR Glucose POC Capillary Glucose 153 H Calcium Phosphorus Magnesium Albumin
--- NOTE | 2024-07-14 15:00 | PCPTNOTE ---
attempted PT eval, pt away from room in dialysis, will follow
[2024-07-14 15:02] LABS: Glucose Point of Care 113 mg/dl (65-105)
[2024-07-14 17:22] LABS: Glucose Point of Care 171 mg/dl (65-105)
--- NOTE | 2024-07-14 18:35 | PC.NURSE ---
This patient, Khalif Yanez, was received from [facility] on 07/14/24 at 1836. Patient/family oriented to unit policies and routines.
--- NOTE | 2024-07-14 18:40 | PC.NURSE ---
This RN gave report to receiving [facility] at 1812. The pt transferred to [facility] room 314 at 1840.
[2024-07-14] MEDS: GABAPENTIN 300 MG CAPSULE PO (20:25)
[2024-07-15] VITALS (10 sets, daily range): BP systolic 82–120; BP diastolic 46–72; PULSE 48–63; RESP 16–18; TEMP 36.4–36.7; O2SAT 94–96
[2024-07-15 00:08] LABS: Glucose Point of Care 179 mg/dl (65-105)
--- NOTE | 2024-07-15 08:02 | P.PNIM_ITS ---
Progress Note: A&P Assessment and Plan (1) Type 2 diabetes mellitus with diabetic neuropathy: Qualifiers: Diabetes mellitus detention insulin use: without marine oil terminal superintendent use Qualified Code(s): E11.40 - Type 2 diabetes mellitus with diabetic neuropathy, unspecified Code(s): E11.40 - Type 2 diabetes mellitus with diabetic neuropathy, unspecified Status: Chronic (2) Anemia of chronic disease: Code(s): D63.8 - Anemia in other chronic diseases classified elsewhere Status: Acute (3) Hypotension: Code(s): I95.9 - Hypotension, unspecified Status: Acute (4) End-stage renal disease on hemodialysis: Code(s): N18.6 - End stage renal disease; Z99.2 - Dependence on renal dialysis Status: Acute (5) Hyperkalemia: Code(s): E87.5 - Hyperkalemia Status: Acute (6) Atrial fibrillation with slow ventricular response: Code(s): I48.91 - Unspecified atrial fibrillation Status: Acute (7) Symptomatic bradycardia: Code(s): R00.1 - Bradycardia, unspecified Status: Acute (8) Bradycardia: Code(s): R00.1 - Bradycardia, unspecified Status: Acute Plan (1) Hyperkalemia: Code(s): E87.5 - Hyperkalemia Status: Acute (2) Hypotension: Code(s): I95.9 - Hypotension, unspecified Status: Acute (3) Atrial fibrillation with slow ventricular response: Code(s): I48.91 - Unspecified atrial fibrillation Status: Acute (4) End-stage renal disease on hemodialysis: Code(s): N18.6 - End stage renal disease; Z99.2 - Dependence on renal dialysis Status: Acute (5) Type 2 diabetes mellitus with diabetic neuropathy: Qualifiers: Diabetes mellitus marine oil terminal superintendent insulin use: without marine oil terminal superintendent use Qualified Code(s): E11.40 - Type 2 diabetes mellitus with diabetic neuropathy, unspecified Code(s): E11.40 - Type 2 diabetes mellitus with diabetic neuropathy, unspecified Status: Chronic (6) Anemia of chronic disease: Code(s): D63.8 - Anemia in other chronic diseases classified elsewhere Status: Acute General weakness Likely secondary to multiple comorbidities, aggravated by bradycardia, fluid overload, anemia, hypotension and end-stage renal disease Patient has risk of fall Treat underlying disease Consult PT OT social work associate for evaluation and assisting placement Patient may need aggressive dialysis to remove fluid in few more days Atrial fibrillation bradycardia bradycardic and is in slow atrial fibrillation. Consult manager costing for evaluation treatment Appreciate cardiology's consultation. Surety Bond Agent recommends continue anticoagulation with Eliquis, no indication for pacemaker. Avoid AV veena agents Hypertension Continue midodrine per manager costing recommendation Fluid overloaded. End-stage renal disease Consult slot floor person for dialysis Follow-up BMP Chronic anemia Likely secondary to chronic renal disease No obvious bleeding Follow-up CBC, ferritin, iron level Consult slot floor person for evaluation and treatment hyperkalemia Patient is on dialysis Corrected Follow-up BMP Type 2 diabetes Continue sliding scale insulin, Accu-Cheks, and hypoglycemic protocol. Consult PT OT and care specialist for evaluation and assisting placement. Patient has a general weakness, unable to ambulate without assistance. May benefit from rehab in [facility] May discharge patient in 1-2 days if fluid overload continue to improve Subjective Date/time seen: 07/15/24 08:02 Interval history: I saw examined patient. patient was on dialysis yesterday, 3 L was removed. Patient feels better, dyspnea is improving, appetite improving, like edema persists but improving. Still has general weakness. Labs reviewed. Exam Narrative: GENERAL: Pleasant, in no acute distress. Well-nourished. - EYES: EOMI. Anicteric. - HENT: Moist mucous membranes. - LUNGS: Clear to auscultation bilateral ly, no wheezing, rhonchi, or rales. - CARDIOVASCULAR: Irregular irregular r hythm, bradycardia. No murmur. No JVD. - ABDOMEN: Soft, non-tender and non-dist ended. No palpable masses. - EXTREMITIES: 2+ lower extremities nissa ma. Peripheral pulses 2+. Non-tender. - NEUROLOGIC: No focal neurological defi cits. CN II-XII grossly intact. - PSYCHIATRIC: Awake, Alert and oriented x 3. Appropriate mood and affect. General weakness - SKIN: No rashes or lesions. Warm. - LYMPH: No cervical lymphadenopathy. Objective Data Vital Signs Vital Signs: Vital Signs - 24 hr 07/14/24 10:00 07/14/24 10:10 07/14/24 10:22 Temperature 97.5 F L Pulse Rate 44 L 56 L 49 L Respiratory Rate 16 Blood Pressure 94/51 L 97/52 L Pulse Oximetry 98 07/14/24 10:30 07/14/24 10:45 07/14/24 11:00 Temperature Pulse Rate 50 L 44 L 53 L Respiratory Rate Blood Pressure 101/51 L 90/57 L 105/58 L Pulse Oximetry 07/14/24 11:15 07/14/24 11:30 07/14/24 11:45 Temperature Pulse Rate 50 L 51 L 57 L Respiratory Rate Blood Pressure 93/51 L 90/51 L 95/49 L Pulse Oximetry 07/14/24 12:00 07/14/24 12:00 07/14/24 12:15 Temperature Pulse Rate 43 L 55 L 58 L Respiratory Rate Blood Pressure 95/53 L 91/45 L Pulse Oximetry 07/14/24 12:30 07/14/24 12:45 07/14/24 13:00 Temperature Pulse Rate 50 L 50 L 53 L Respiratory Rate Blood Pressure 87/53 L 97/47 L 101/57 L Pulse Oximetry 07/14/24 13:15 07/14/24 13:30 07/14/24 13:45 Temperature Pulse Rate 54 L 54 L 70 Respiratory Rate Blood Pressure 107/53 L 98/55 L 99/50 L Pulse Oximetry 07/14/24 14:00 07/14/24 14:12 07/14/24 14:16 Temperature 97.7 F Pulse Rate 53 L 54 L 49 L Respiratory Rate 16 Blood Pressure 99/57 L 103/49 L 99/58 L Pulse Oximetry 100 07/14/24 16:00 07/14/24 16:00 07/14/24 20:00 Temperature 97.1 F L Pulse Rate 109 H 60 65 Respiratory Rate 18 Blood Pressure 96/57 L Pulse Oximetry 100 07/14/24 22:18 07/15/24 00:00 07/15/24 04:00 Temperature 98.3 F Pulse Rate 63 56 L 48 L Respiratory Rate 18 Blood Pressure 104/45 L Pulse Oximetry 97 07/15/24 06:00 07/15/24 06:00 07/15/24 06:05 Temperature 97.6 F 97.6 F 98.0 F Pulse Rate 61 61 59 L Respiratory Rate 16 16 16 Blood Pressure 101/47 L 101/47 L 94/46 L Pulse Oximetry 94 94 94 Intake/Output Intake/Output: Intake & Output 12/09/24 07/13/24 07/14/24 07/15/24 23:59 23:59 23:59 23:59 Intake Total 50 1570 1940 440 Output Total 1999 1999 2999 Trmdubt -0130 -543 -2687 440 Meds/Results Medications: Active Medications Generic Name Dose Route Start Last Admin Trade Name Freq PRN Reason Stop Dose Admin Acetaminophen 650 mg 07/12/24 20:08 07/14/24 08:28 Acetaminophen 325 Mg Tablet PO 650 mg Q6H PRN Administration Mild Pain (1-3) or Fever Albuterol 2 puff 07/12/24 23:57 Albuterol Sulfate (*Sp) Aerosol 1 Puff INHALATION Q6HRT PRN sob/wheezing Allopurinol 100 mg 07/13/24 09:00 07/14/24 08:24 Allopurinol 100 Mg Tablet PO 100 mg DAILY CESAR Administration Apixaban 2.5 mg 07/13/24 09:00 07/14/24 20:25 Apixaban 2.5 Mg Tablet PO 2.5 mg Q12HR CESAR Administration Atorvastatin Calcium 10 mg 07/13/24 09:00 07/14/24 08:24 Atorvastatin 10 Mg Tablet PO 10 mg DAILY CESAR Administration Bumetanide 1 mg 07/13/24 09:00 07/14/24 18:24 Bumetanide 1 Mg Tablet PO 1 mg BID CESAR Administration Calcitriol 0.25 mcg 07/14/24 09:00 07/14/24 08:25 Calcitriol 0.25 Mcg Capsule PO 0.25 mcg SuMoWeFr CESAR Administration Calcium Acetate 1,334 mg 07/13/24 08:00 07/14/24 18:24 Calcium Acetate 667 Mg Tablet PO 1,334 mg TIDWM CESAR Administration Cyanocobalamin 1,000 mcg 07/13/24 09:00 07/14/24 08:24 Cyanocobalamin 1,000 Mcg Tablet PO 1,000 mcg DAILY CESAR Administration Dextrose 12.5 gm 07/12/24 20:08 Dextrose 50% 25 Gm/50 Ml Syringe IV PUSH PRN PRN Hypoglycemia Protocol Ferrous Sulfate 650 mg 07/13/24 09:00 07/13/24 12:54 Ferrous Sulfate [address] PO 650 mg Q48H CESAR Administration Fluticasone/Umeclidinium/Vilanterol 1 puff 07/13/24 09:00 07/14/24 07:20 Fluticasone/Umeclidin/Vilanter 100-62.5-25 Mcg Ellipta INHALATION 1 puff DAILY CESAR Administration Gabapentin 300 mg 07/13/24 21:00 07/14/24 20:25 Gabapentin 300 Mg Capsule PO 300 mg HS CESAR Administration Glucagon 1 mg 07/12/24 20:08 Glucagon For Inj 1 Mg Vial IM PRN PRN Hypoglycemia Protocol Glucose 15 gm 07/12/24 20:08 Glucose Oral Gel 15 Gm Of Glucse In 37.5 Gm Tube PO PRN PRN Hypoglycemia Protocol Albumin Human 50 mls @ 999 mls/hr 07/12/24 12:46 07/12/24 16:28 Albutein IVPB 08/11/24 12:45 999 mls/hr Q10M PRN Administration HYPOTENSION Dextrose 1,000 mls @ 100 mls/hr 07/12/24 20:08 Dextrose 5% 1,000 Ml IVPB PRN PRN Hypoglycemia Protocol Insulin Aspart 3 - 6 units 07/13/24 08:00 07/14/24 17:18 Insulin Aspart (*Bkc) 100 Units/Ml SUB-Q Not Given TIDWM CESAR Protocol Insulin Aspart 1 - 3 units 07/12/24 21:00 07/14/24 20:30 Insulin Aspart (*Bkc) 100 Units/Ml SUB-Q Not Given HS CESAR Protocol Midodrine 10 mg 07/12/24 23:57 07/14/24 09:59 Midodrine Hcl 10 Mg Tablet PO 10 mg WITH DIALYSIS PRN Administration hypotension with dialysis Tramadol HCl 50 mg 07/12/24 23:57 Tramadol Hcl (*Crx) 50 Mg Tablet PO Q8H PRN pain 4-6 Vitamin D 2,000 units 07/13/24 09:00 07/14/24 08:24 Cholecalciferol 1,000 Units Tablet PO 2,000 units DAILY CESAR Administration Radiology Results: ITS Impressions Chest X-Ray 07/14/24 16:57 IMPRESSION: 1. Mild atelectasis in the midlung zones. 2. Cardiomegaly. Labs Labs: Laboratory Results - last 24 hr 07/14/24 07/14/24 07/14/24 14:59 17:12 20:30 POC Capillary Glucose 113 H 171 H 179 H
[2024-07-15 08:21] LABS: Glucose Point of Care 132 mg/dl (65-105)
[2024-07-15] MEDS: APIXABAN 2.5 MG TABLET PO ×2 (09:02→21:22)
[2024-07-15] MEDS: BUMETANIDE 1 MG TABLET PO ×2 (09:02→17:11)
[2024-07-15] MEDS: ATORVASTATIN 10 MG TABLET PO (09:02)
[2024-07-15] MEDS: CALCIUM ACETATE 667 MG TABLET 1334 MG PO ×3 (09:02→17:11)
[2024-07-15] MEDS: CYANOCOBALAMIN 1,000 MCG TABLET 1000 MCG PO (09:03)
[2024-07-15] MEDS: allopurinoL 100 MG TABLET PO (09:03)
[2024-07-15] MEDS: FERROUS SULFATE 325 MG TABLET DR 650 MG PO (09:03)
[2024-07-15] MEDS: CHOLECALCIFEROL 1,000 UNITS TABLET 2000 UNITS PO (09:03)
[2024-07-15] MEDS: FLUTICASONE/UMECLIDIN/VILANTER 100-62.5-25 MCG ELLIPTA 1 PUFF INHALATION (11:51)
[2024-07-15] MEDS: INSULIN ASPART (*BKC) 100 UNITS/ML SUB-Q (11:57)
[2024-07-15 12:04] LABS: Glucose Point of Care 252 mg/dl (65-105)
--- NOTE | 2024-07-15 13:26 | P.PNNP_ITS ---
Progress Note: A&P Assessment and Plan (1) End-stage renal disease (ESRD): Code(s): N18.6 - End stage renal disease Status: Chronic Assessment and Plan: * HD tomorrow * dry ultrafiltration (on 07/13) for fluid removal that was limited on HD treatment on 07/12 * continue Fri/Fri/Friday dialysis schedule while hospitalized * follow electrolytes, volume status, and clearance (2) Hyperkalemia: Code(s): E87.5 - Hyperkalemia Status: Acute Assessment and Plan: * resolved * as noted on admission labs * should correct with dialysis * follow trend (3) Atrial fibrillation with slow ventricular response: Code(s): I48.91 - Unspecified atrial fibrillation Status: Acute Assessment and Plan: * as noted on admission * heart rate have been as low as high 30s * possibly contributing to #4 * carvedilol on hold * Cardiology recommendation noted * follow telemetry * on anticoagulation with eliquis (4) Generalized weakness: Code(s): R53.1 - Weakness Status: Acute Assessment and Plan: * as noted on admission * related to #3 (?) * PT/OT following * follow symptoms (5) Hypotension: Code(s): I95.9 - Hypotension, unspecified Status: Chronic Assessment and Plan: * chronic issue at baseline * on midodrine therapy * contributing to #4 (?) * follow trend of hemodynamics (6) Anemia: Code(s): D64.9 - Anemia, unspecified Status: Chronic Assessment and Plan: * due to ESRD * Retacrit with HD * follow trend of H/H (7) Diabetes: Code(s): E11.9 - Type 2 diabetes mellitus without complications Status: Chronic Assessment and Plan: * follow accu-cheks * glycemic control per hospitalists Will continue to follow. Subjective Date/time seen: 07/15/24 13:26 Interval history: Follow-up for end stage renal disease on hemodialysis. Tolerated dialysis treatment yesterday without any acute issues or problems; working with therapy and noted recommendations for SNF/rehab; still reports he feels weak but not as severe as on admission/presenation to the hospital; at bedside and we discussed the situation. Exam Narrative: General: WD/WN male in NAD Heart: normal S1 and S2; IRRR, no rub Lungs: clear anteriorly Abdomen: soft, nontender, nondistended, positive bowel sounds Extremities: no cyanosis or clubbing, 1 - 2+ edema Skin: no rash Objective Data Vital Signs Vital Signs: Vital Signs Temp Pulse Resp BP Pulse Ox O2 Del Method 07/15/24 13:10 97.8 F 57 L 18 86/54 L 96 07/15/24 12:00 63 07/15/24 10:08 Room Air 07/15/24 09:12 Room Air 07/15/24 08:00 54 L 07/15/24 08:00 Room Air 07/15/24 06:05 98.0 F 59 L 16 94/46 L 94 07/15/24 06:00 97.6 F 61 16 101/47 L 94 07/15/24 06:00 97.6 F 61 16 101/47 L 94 07/15/24 04:00 48 L 07/15/24 00:00 56 L 07/14/24 22:18 98.3 F 63 18 104/45 L 97 07/14/24 20:00 65 07/14/24 16:00 60 07/14/24 16:00 97.1 F L 109 H 18 96/57 L 100 Intake/Output Intake/Output: Intake & Output 07/12/24 07/13/24 07/14/24 07/15/24 23:59 23:59 23:59 23:59 Intake Total 50 1150 1940 1040 Output Total 1999 1999 2999 [facility] -1950 -850 -1060 1040 Meds/Results Medications: Active Medications Generic Name Dose Route Start Last Admin Trade Name Freq PRN Reason Stop Dose Admin Acetaminophen 650 mg 07/12/24 20:08 07/14/24 08:28 Acetaminophen 325 Mg Tablet PO 650 mg Q6H PRN Administration Mild Pain (1-3) or Fever Albuterol 2 puff 07/12/24 23:57 Albuterol Sulfate (*Sp) Aerosol 1 Puff INHALATION Q6HRT PRN sob/wheezing Allopurinol 100 mg 07/13/24 09:00 07/15/24 09:03 Allopurinol 100 Mg Tablet PO 100 mg DAILY CESAR Administration Apixaban 2.5 mg 07/13/24 09:00 07/15/24 09:02 Apixaban 2.5 Mg Tablet PO 2.5 mg Q12HR CESAR Administration Atorvastatin Calcium 10 mg 07/13/24 09:00 07/15/24 09:02 Atorvastatin 10 Mg Tablet PO 10 mg DAILY CESAR Administration Bumetanide 1 mg 07/13/24 09:00 07/15/24 09:02 Bumetanide 1 Mg Tablet PO 1 mg BID CESAR Administration Calcitriol 0.25 mcg 07/14/24 09:00 07/14/24 08:25 Calcitriol 0.25 Mcg Capsule PO 0.25 mcg SuMoWeFr CESAR Administration Calcium Acetate 1,334 mg 07/13/24 08:00 07/15/24 11:47 Calcium Acetate 667 Mg Tablet PO 1,334 mg TIDWM CESAR Administration Cyanocobalamin 1,000 mcg 07/13/24 09:00 07/15/24 09:03 Cyanocobalamin 1,000 Mcg Tablet PO 1,000 mcg DAILY CESAR Administration Dextrose 12.5 gm 07/12/24 20:08 Dextrose 50% 25 Gm/50 Ml Syringe IV PUSH PRN PRN Hypoglycemia Protocol Ferrous Sulfate 650 mg 07/13/24 09:00 07/15/24 09:03 Ferrous Sulfate [address] PO 650 mg Q48H CESAR Administration Fluticasone/Umeclidinium/Vilanterol 1 puff 07/13/24 09:00 07/15/24 11:51 Fluticasone/Umeclidin/Vilanter 100-62.5-25 Mcg Ellipta INHALATION 1 puff DAILY CESAR Administration Gabapentin 300 mg 07/13/24 21:00 07/14/24 20:25 Gabapentin 300 Mg Capsule PO 300 mg HS CESAR Administration Glucagon 1 mg 07/12/24 20:08 Glucagon For Inj 1 Mg Vial IM PRN PRN Hypoglycemia Protocol Glucose 15 gm 07/12/24 20:08 Glucose Oral Gel 15 Gm Of Glucse In 37.5 Gm Tube PO PRN PRN Hypoglycemia Protocol Albumin Human 50 mls @ 999 mls/hr 07/12/24 12:46 07/12/24 16:28 Albutein IVPB 08/11/24 12:45 999 mls/hr Q10M PRN Administration HYPOTENSION Dextrose 1,000 mls @ 100 mls/hr 07/12/24 20:08 Dextrose 5% 1,000 Ml IVPB PRN PRN Hypoglycemia Protocol Insulin Aspart 3 - 6 units 07/13/24 08:00 07/15/24 11:57 Insulin Aspart (*Bkc) 100 Units/Ml SUB-Q 4 units TIDWM CESAR Administration Protocol Insulin Aspart 1 - 3 units 07/12/24 21:00 07/14/24 20:30 Insulin Aspart (*Bkc) 100 Units/Ml SUB-Q Not Given HS CESAR Protocol Midodrine 10 mg 07/12/24 23:57 07/14/24 09:59 Midodrine Hcl 10 Mg Tablet PO 10 mg WITH DIALYSIS PRN Administration hypotension with dialysis Tramadol HCl 50 mg 07/12/24 23:57 Tramadol Hcl (*Crx) 50 Mg Tablet PO Q8H PRN pain 4-6 Vitamin D 2,000 units 07/13/24 09:00 07/15/24 09:03 Cholecalciferol 1,000 Units Tablet PO 2,000 units DAILY CESAR Administration Radiology Results: ITS Impressions Chest X-Ray 07/14/24 16:57 IMPRESSION: 1. Mild atelectasis in the midlung zones. 2. Cardiomegaly. Labs Labs: Laboratory Results - last 24 hr 07/14/24 07/14/24 07/15/24 17:12 20:30 08:05 POC Capillary Glucose 171 H 179 H 132 H 07/15/24 11:51 POC Capillary Glucose 252 H
[2024-07-15 17:28] LABS: Glucose Point of Care 166 mg/dl (65-105)
[2024-07-15] MEDS: GABAPENTIN 300 MG CAPSULE PO (21:22)
[2024-07-16] VITALS (34 sets, daily range): BP systolic 95–147; BP diastolic 48–86; PULSE 54–99; RESP 12–20; TEMP 36.2–37; O2SAT 93–98
[2024-07-16 01:23] LABS: Glucose Point of Care 162 mg/dl (65-105)
[2024-07-16] MEDS: FLUTICASONE/UMECLIDIN/VILANTER 100-62.5-25 MCG ELLIPTA 1 PUFF INHALATION (08:00)
--- NOTE | 2024-07-16 08:16 | P.PNIM_ITS ---
Progress Note: A&P Assessment and Plan (1) Type 2 diabetes mellitus with diabetic neuropathy: Qualifiers: Diabetes mellitus half-way insulin use: without extermination inspector use Qualified Code(s): E11.40 - Type 2 diabetes mellitus with diabetic neuropathy, unspecified Code(s): E11.40 - Type 2 diabetes mellitus with diabetic neuropathy, unspecified Status: Chronic (2) Anemia of chronic disease: Code(s): D63.8 - Anemia in other chronic diseases classified elsewhere Status: Acute (3) Hypotension: Code(s): I95.9 - Hypotension, unspecified Status: Acute (4) End-stage renal disease on hemodialysis: Code(s): N18.6 - End stage renal disease; Z99.2 - Dependence on renal dialysis Status: Acute (5) Hyperkalemia: Code(s): E87.5 - Hyperkalemia Status: Acute (6) Atrial fibrillation with slow ventricular response: Code(s): I48.91 - Unspecified atrial fibrillation Status: Acute (7) Symptomatic bradycardia: Code(s): R00.1 - Bradycardia, unspecified Status: Acute (8) Bradycardia: Code(s): R00.1 - Bradycardia, unspecified Status: Acute Plan This is 84-year-old male who presents to the ED with complaint of generalized weakness and recurrent falls. Patient fell yesterday and again earlier on presentation to the ER. He was unable to get himself up and had to have a friend come over to pick him up. Patient is on hemodialysis Friday. He has a right chest dialysis catheter which is not used currently and has a left arm fistula. No focal weakness reported on arrival to the ED. On arrival to the ED his vitals showed low blood pressure and bradycardia. EKG showed atrial fibrillation with bradycardia. Heart rate dips down in upper 30s to low 40s. Examination revealed peripheral extremity edema. Laboratory evaluation showed ESRD with BUN and creatinine of 60 and 7.5 suggesting end-stage renal disease. Potassium slightly elevated at 5.6 for which calcium gluconate was given. BNP elevated more than 30,000. Chest x-ray showed cardiomegaly with interstitial edema. Cardiology was consulted for symptomatic bradycardia with slow ventricular response. Avoid AV veena blocking agents. Heart rate stable Hypotension added midodrine on dialysis days. Generalize weakness slow and recurrent fall likely multifactorial due to bradycardia fluid overload anemia hypertension and end-stage renal disease. Chronic AFib does take Coreg at home which was held due to bradycardia. No significant pauses on telemetry monitoring through the hospital stay. No indication for pacemaker. Continue anticoagulation with apixaban. Hypertension Thrombocytopenia mild chronic Congestive heart failure chronic diastolic End-stage renal disease on hemodialysis inpatient hemodialysis per nephrology Chronic anemia with no obvious bleeding. Hyperkalemia resolved with treatment. Type 2 diabetes: SSI Generalized weakness PT OT to see DVT prophylaxis on apixaban Code status full code Subjective Date/time seen: 07/16/24 08:16 Interval history: Chart reviewed. Vitals reviewed. Labs reviewed. reports still quite weak, mostly lower extremities, also reports back pain Review of Systems Review of Systems: All systems reviewed & are unremarkable except as noted in HPI and below Exam Narrative: GENERAL: Pleasant, in no acute distress. Well-nourished. - EYES: EOMI. Anicteric. - HENT: Moist mucous membranes. - LUNGS: Clear to auscultation bilateral ly, no wheezing, rhonchi, or rales. - CARDIOVASCULAR: Irregular irregular r hythm, bradycardia. No murmur. No JVD. - ABDOMEN: Soft, non-tender and non-dist ended. No palpable masses. - EXTREMITIES: 2+ lower extremities nissa ma. Peripheral pulses 2+. Non-tender. - NEUROLOGIC: No focal neurological defi cits. CN II-XII grossly intact. - PSYCHIATRIC: Awake, Alert and oriented x 3. Appropriate mood and affect. General weakness - SKIN: No rashes or lesions. Warm. - LYMPH: No cervical lymphadenopathy. Objective Data Vital Signs Vital Signs: Vital Signs - 24 hr 07/15/24 09:12 07/15/24 10:08 07/15/24 12:00 Temperature Pulse Rate 63 Respiratory Rate Blood Pressure Pulse Oximetry Oxygen Delivery Room Air Room Air 07/15/24 14:00 07/15/24 16:00 07/15/24 16:00 Temperature 97.8 F Pulse Rate 57 L 62 57 L Respiratory Rate 18 Blood Pressure 86/54 L 82/54 L Pulse Oximetry 96 Oxygen Delivery 07/15/24 20:00 07/15/24 20:00 07/15/24 22:00 Temperature 98.0 F Pulse Rate 62 55 L Respiratory Rate 16 Blood Pressure 120/72 Pulse Oximetry 95 Oxygen Delivery Room Air 07/16/24 00:00 07/16/24 04:00 07/16/24 06:00 Temperature 97.2 F L Pulse Rate 69 70 67 Respiratory Rate 16 Blood Pressure 147/81 H Pulse Oximetry 95 Oxygen Delivery 07/16/24 06:00 07/16/24 06:05 07/16/24 08:01 Temperature 97.2 F L 97.2 F L Pulse Rate 67 62 78 Respiratory Rate 16 18 20 Blood Pressure 147/81 H 129/86 Pulse Oximetry 95 96 Oxygen Delivery Intake/Output Intake/Output: Intake & Output 07/13/24 07/14/24 07/15/24 07/16/24 23:59 23:59 23:59 23:59 Intake Total 1150 1940 1280 600 Output Total 1999 3000 Balance -850 -1060 1280 600 Meds/Results Medications: Active Medications Generic Name Dose Route Start Last Admin Trade Name Freq PRN Reason Stop Dose Admin Acetaminophen 650 mg 07/12/24 20:08 07/14/24 08:28 Acetaminophen 325 Mg Tablet PO 650 mg Q6H PRN Administration Mild Pain (1-3) or Fever Albuterol 2 puff 07/12/24 23:57 Albuterol Sulfate (*Sp) Aerosol 1 Puff INHALATION Q6HRT PRN sob/wheezing Allopurinol 100 mg 07/13/24 09:00 07/15/24 09:03 Allopurinol 100 Mg Tablet PO 100 mg DAILY CESAR Administration Apixaban 2.5 mg 07/13/24 09:00 07/15/24 21:22 Apixaban 2.5 Mg Tablet PO 2.5 mg Q12HR CESAR Administration Atorvastatin Calcium 10 mg 07/13/24 09:00 07/15/24 09:02 Atorvastatin 10 Mg Tablet PO 10 mg DAILY CESAR Administration Bumetanide 1 mg 07/13/24 09:00 07/15/24 17:11 Bumetanide 1 Mg Tablet PO 1 mg BID CESAR Administration Calcitriol 0.25 mcg 07/14/24 09:00 07/14/24 08:25 Calcitriol 0.25 Mcg Capsule PO 0.25 mcg SuMoWeFr CESAR Administration Calcium Acetate 1,334 mg 07/13/24 08:00 07/15/24 17:11 Calcium Acetate 667 Mg Tablet PO 1,334 mg TIDWM CESAR Administration Cyanocobalamin 1,000 mcg 07/13/24 09:00 07/15/24 09:03 Cyanocobalamin 1,000 Mcg Tablet PO 1,000 mcg DAILY CESAR Administration Dextrose 12.5 gm 07/12/24 20:08 Dextrose 50% 25 Gm/50 Ml Syringe IV PUSH PRN PRN Hypoglycemia Protocol Ferrous Sulfate 650 mg 07/13/24 09:00 07/15/24 09:03 Ferrous Sulfate [address] PO 650 mg Q48H CESAR Administration Fluticasone/Umeclidinium/Vilanterol 1 puff 07/13/24 09:00 07/16/24 08:00 Fluticasone/Umeclidin/Vilanter 100-62.5-25 Mcg Ellipta INHALATION 1 puff DAILY CESAR Administration Gabapentin 300 mg 07/13/24 21:00 07/15/24 21:22 Gabapentin 300 Mg Capsule PO 300 mg HS CESAR Administration Glucagon 1 mg 07/12/24 20:08 Glucagon For Inj 1 Mg Vial IM PRN PRN Hypoglycemia Protocol Glucose 15 gm 07/12/24 20:08 Glucose Oral Gel 15 Gm Of Glucse In 37.5 Gm Tube PO PRN PRN Hypoglycemia Protocol Albumin Human 50 mls @ 999 mls/hr 07/12/24 12:46 07/12/24 16:28 Albutein IVPB 08/11/24 12:45 999 mls/hr Q10M PRN Administration HYPOTENSION Dextrose 1,000 mls @ 100 mls/hr 07/12/24 20:08 Dextrose 5% 1,000 Ml IVPB PRN PRN Hypoglycemia Protocol Albumin Human 50 mls @ 999 mls/hr 07/16/24 07:34 Albutein IVPB 07/17/24 07:33 Q10M PRN HYPOTENSION Sodium Chloride 1,000 mls @ 999 mls/hr 07/16/24 07:34 Normal Saline Iv IV CONT 07/16/24 08:34 .Q1H1M ONE Insulin Aspart 3 - 6 units 07/13/24 08:00 07/15/24 17:17 Insulin Aspart (*Bkc) 100 Units/Ml SUB-Q Not Given TIDWM CESAR Protocol Insulin Aspart 1 - 3 units 07/12/24 21:00 07/15/24 21:24 Insulin Aspart (*Bkc) 100 Units/Ml SUB-Q Not Given HS CESAR Protocol Midodrine 10 mg 07/12/24 23:57 07/14/24 09:59 Midodrine Hcl 10 Mg Tablet PO 10 mg WITH DIALYSIS PRN Administration hypotension with dialysis Tramadol HCl 50 mg 07/12/24 23:57 Tramadol Hcl (*Crx) 50 Mg Tablet PO Q8H PRN pain 4-6 Vitamin D 2,000 units 07/13/24 09:00 07/15/24 09:03 Cholecalciferol 1,000 Units Tablet PO 2,000 units DAILY CESAR Administration Radiology Results: ITS Impressions Chest X-Ray 07/14/24 16:57 IMPRESSION: 1. Mild atelectasis in the midlung zones. 2. Cardiomegaly. Labs Labs: Laboratory Results - last 24 hr 07/15/24 07/15/24 07/15/24 08:05 11:51 16:58 POC Capillary Glucose 132 H 252 H 166 H 07/15/24 21:11 POC Capillary Glucose 162 H
[2024-07-16 08:24] LABS: Glucose Point of Care 152 mg/dl (65-105)
[2024-07-16] MEDS: MIDODRINE HCL 10 MG TABLET PO (08:36)
--- NOTE | 2024-07-16 09:45 | P.PNNP_ITS ---
Progress Note: A&P Assessment and Plan (1) End-stage renal disease (ESRD): Code(s): N18.6 - End stage renal disease Status: Chronic Assessment and Plan: * HD today * dry ultrafiltration (on 07/13) for fluid removal that was limited on HD treatment on 07/12 * continue Fri/Fri/Friday dialysis schedule while hospitalized * follow electrolytes, volume status, and clearance (2) Hyperkalemia: Code(s): E87.5 - Hyperkalemia Status: Acute Assessment and Plan: * resolved * as noted on admission labs * should correct with dialysis * follow trend (3) Atrial fibrillation with slow ventricular response: Code(s): I48.91 - Unspecified atrial fibrillation Status: Acute Assessment and Plan: * as noted on admission * heart rate have been as low as high 30s * possibly contributing to #4 * carvedilol on hold * Cardiology recommendation noted * follow telemetry * on anticoagulation with eliquis (4) Generalized weakness: Code(s): R53.1 - Weakness Status: Acute Assessment and Plan: * as noted on admission * related to #3 (?) * PT/OT following * will apparently need SNF/rehab on discharge (5) Hypotension: Code(s): I95.9 - Hypotension, unspecified Status: Chronic Assessment and Plan: * chronic issue at baseline * on midodrine therapy * contributing to #4 (?) * follow trend of hemodynamics (6) Anemia: Code(s): D64.9 - Anemia, unspecified Status: Chronic Assessment and Plan: * due to ESRD * Retacrit with HD * follow trend of H/H (7) Diabetes: Code(s): E11.9 - Type 2 diabetes mellitus without complications Status: Chronic Assessment and Plan: * follow accu-cheks * glycemic control per hospitalists Will continue to follow. Subjective Date/time seen: 07/16/24 09:45 Interval history: Follow-up for end stage renal disease on hemodialysis. Tolerating dialysis treatment at the time of my visit (seen on HD at 9:35AM); no apparent distress but complaining of back pain (chronic issue); working with therapy as tolerated; no other issues/events overnight or earlier this morning. Exam 2 Narrative: General: WD/WN male in NAD Heart: normal S1 and S2; IRRR, no rub Lungs: clear anteriorly Abdomen: soft, nontender, nondistended, positive bowel sounds Extremities: no cyanosis or clubbing, 1 - 2+ edema Skin: no nodules Objective Data Vital Signs Vital Signs: Vital Signs Temp Pulse Resp BP Pulse Ox O2 Del Method 07/16/24 09:45 64 122/67 07/16/24 09:30 67 121/75 07/16/24 09:15 64 118/70 07/16/24 09:05 64 123/65 07/16/24 08:50 97.5 F L 59 L 12 110/62 98 07/16/24 08:01 78 20 07/16/24 06:05 97.2 F L 62 18 129/86 96 07/16/24 06:00 97.2 F L 67 16 147/81 H 95 07/16/24 06:00 97.2 F L 67 16 147/81 H 95 07/16/24 04:00 70 07/16/24 00:00 69 07/15/24 22:00 98.0 F 55 L 16 120/72 95 07/15/24 20:00 62 07/15/24 20:00 Room Air 07/15/24 16:00 57 L 82/54 L 07/15/24 16:00 62 07/15/24 14:00 97.8 F 57 L 18 86/54 L 96 07/15/24 12:00 63 Intake/Output Intake/Output: Intake & Output 07/13/24 07/14/24 07/15/24 07/16/24 23:59 23:59 23:59 23:59 Intake Total 1150 1940 1280 600 Output Total 1999 3000 Balance -850 -1060 1280 600 Meds/Results Medications: Active Medications Generic Name Dose Route Start Last Admin Trade Name Freq PRN Reason Stop Dose Admin Acetaminophen 650 mg 07/12/24 20:08 07/14/24 08:28 Acetaminophen 325 Mg Tablet PO 650 mg Q6H PRN Administration Mild Pain (1-3) or Fever Albuterol 2 puff 07/12/24 23:57 Albuterol Sulfate (*Sp) Aerosol 1 Puff INHALATION Q6HRT PRN sob/wheezing Allopurinol 100 mg 07/13/24 09:00 07/15/24 09:03 Allopurinol 100 Mg Tablet PO 100 mg DAILY CESAR Administration Apixaban 2.5 mg 07/13/24 09:00 07/15/24 21:22 Apixaban 2.5 Mg Tablet PO 2.5 mg Q12HR CESAR Administration Atorvastatin Calcium 10 mg 07/13/24 09:00 07/15/24 09:02 Atorvastatin 10 Mg Tablet PO 10 mg DAILY CESAR Administration Bumetanide 1 mg 07/13/24 09:00 07/15/24 17:11 Bumetanide 1 Mg Tablet PO 1 mg BID CESAR Administration Calcitriol 0.25 mcg 07/14/24 09:00 07/14/24 08:25 Calcitriol 0.25 Mcg Capsule PO 0.25 mcg SuMoWeFr CESAR Administration Calcium Acetate 1,334 mg 07/13/24 08:00 07/15/24 17:11 Calcium Acetate 667 Mg Tablet PO 1,334 mg TIDWM CESAR Administration Cyanocobalamin 1,000 mcg 07/13/24 09:00 07/15/24 09:03 Cyanocobalamin 1,000 Mcg Tablet PO 1,000 mcg DAILY CESAR Administration Dextrose 12.5 gm 07/12/24 20:08 Dextrose 50% 25 Gm/50 Ml Syringe IV PUSH PRN PRN Hypoglycemia Protocol Ferrous Sulfate 650 mg 07/13/24 09:00 07/15/24 09:03 Ferrous Sulfate [address] PO 650 mg Q48H CESAR Administration Fluticasone/Umeclidinium/Vilanterol 1 puff 07/13/24 09:00 07/16/24 08:00 Fluticasone/Umeclidin/Vilanter 100-62.5-25 Mcg Ellipta INHALATION 1 puff DAILY CESAR Administration Gabapentin 300 mg 07/13/24 21:00 07/15/24 21:22 Gabapentin 300 Mg Capsule PO 300 mg HS CESAR Administration Glucagon 1 mg 07/12/24 20:08 Glucagon For Inj 1 Mg Vial IM PRN PRN Hypoglycemia Protocol Glucose 15 gm 07/12/24 20:08 Glucose Oral Gel 15 Gm Of Glucse In 37.5 Gm Tube PO PRN PRN Hypoglycemia Protocol Albumin Human 50 mls @ 999 mls/hr 07/12/24 12:46 07/12/24 16:28 Albutein IVPB 08/11/24 12:45 999 mls/hr Q10M PRN Administration HYPOTENSION Dextrose 1,000 mls @ 100 mls/hr 07/12/24 20:08 Dextrose 5% 1,000 Ml IVPB PRN PRN Hypoglycemia Protocol Albumin Human 50 mls @ 999 mls/hr 07/16/24 07:34 Albutein IVPB 07/17/24 07:33 Q10M PRN HYPOTENSION Insulin Aspart 3 - 6 units 07/13/24 08:00 07/15/24 17:17 Insulin Aspart (*Bkc) 100 Units/Ml SUB-Q Not Given TIDWM CESAR Protocol Insulin Aspart 1 - 3 units 07/12/24 21:00 07/15/24 21:24 Insulin Aspart (*Bkc) 100 Units/Ml SUB-Q Not Given HS CESAR Protocol Midodrine 10 mg 07/12/24 23:57 07/16/24 08:36 Midodrine Hcl 10 Mg Tablet PO 10 mg WITH DIALYSIS PRN Administration hypotension with dialysis Tramadol HCl 50 mg 07/12/24 23:57 Tramadol Hcl (*Crx) 50 Mg Tablet PO Q8H PRN pain 4-6 Vitamin D 2,000 units 07/13/24 09:00 07/15/24 09:03 Cholecalciferol 1,000 Units Tablet PO 2,000 units DAILY CESAR Administration Radiology Results: ITS Impressions Chest X-Ray 07/14/24 16:57 IMPRESSION: 1. Mild atelectasis in the midlung zones. 2. Cardiomegaly. Labs Labs: Laboratory Tests 07/14/24 04:51 07/14/24 04:51
[2024-07-16] MEDS: EPOETIN ALFA-EPBX 4,000 UNITS/ML VIAL 4000 UNITS IV PUSH (11:11)
--- NOTE | 2024-07-16 11:20 | PCOTNOTE ---
Patient out of the room at this time. Patient is in dialysis.
[2024-07-16] MEDS: HEPARIN SODIUM 1,000 UNITS/ML VIAL 4000 UNITS IV PUSH (11:49)
[2024-07-16 12:02] LABS: Glucose Point of Care 113 mg/dl (65-105)
[2024-07-16] MEDS: ATORVASTATIN 10 MG TABLET PO (14:42)
[2024-07-16] MEDS: CHOLECALCIFEROL 1,000 UNITS TABLET 2000 UNITS PO (14:42)
[2024-07-16] MEDS: CYANOCOBALAMIN 1,000 MCG TABLET 1000 MCG PO (14:43)
[2024-07-16] MEDS: allopurinoL 100 MG TABLET PO (14:43)
[2024-07-16] MEDS: FERROUS SULFATE 325 MG TABLET DR 650 MG PO (14:43)
[2024-07-16] MEDS: traMADol HCL (*CRX) 50 MG TABLET PO (16:43)
[2024-07-16] MEDS: CALCIUM ACETATE 667 MG TABLET 1334 MG PO (16:46)
[2024-07-16] MEDS: BUMETANIDE 1 MG TABLET PO (16:50)
[2024-07-16 17:02] LABS: Glucose Point of Care 228 mg/dl (65-105)
[2024-07-16] MEDS: INSULIN ASPART (*BKC) 100 UNITS/ML SUB-Q ×2 (17:25→22:05)
[2024-07-16] MEDS: GABAPENTIN 300 MG CAPSULE PO (20:31)
[2024-07-16] MEDS: APIXABAN 2.5 MG TABLET PO (20:31)
[2024-07-16 21:46] LABS: Glucose Point of Care 219 mg/dl (65-105)
[2024-07-17] VITALS (8 sets, daily range): BP systolic 96–118; BP diastolic 42–66; PULSE 56–69; RESP 16; TEMP 36.3–36.7; O2SAT 93–95
[2024-07-17 08:01] LABS: Glucose Point of Care 125 mg/dl (65-105)
[2024-07-17] MEDS: FLUTICASONE/UMECLIDIN/VILANTER 100-62.5-25 MCG ELLIPTA 1 PUFF INHALATION (08:17)
[2024-07-17] MEDS: BUMETANIDE 1 MG TABLET PO ×2 (08:58→17:34)
[2024-07-17] MEDS: CHOLECALCIFEROL 1,000 UNITS TABLET 2000 UNITS PO (08:58)
[2024-07-17] MEDS: ATORVASTATIN 10 MG TABLET PO (08:58)
[2024-07-17] MEDS: CALCIUM ACETATE 667 MG TABLET 1334 MG PO ×3 (08:58→17:33)
[2024-07-17] MEDS: APIXABAN 2.5 MG TABLET PO (08:59)
[2024-07-17] MEDS: allopurinoL 100 MG TABLET PO (08:59)
[2024-07-17] MEDS: CYANOCOBALAMIN 1,000 MCG TABLET 1000 MCG PO (08:59)
--- NOTE | 2024-07-17 10:55 | P.PNNP_ITS ---
Progress Note: A&P Assessment and Plan (1) End-stage renal disease (ESRD): Code(s): N18.6 - End stage renal disease Status: Chronic Assessment and Plan: * HD yesterday * dry ultrafiltration (on 07/13) for fluid removal that was limited on HD treatment on 07/12 * continue Fri/Fri/Friday dialysis schedule while hospitalized * follow electrolytes, volume status, and clearance (2) Hyperkalemia: Code(s): E87.5 - Hyperkalemia Status: Acute Assessment and Plan: * resolved * as noted on admission labs * should correct with dialysis * follow trend (3) Atrial fibrillation with slow ventricular response: Code(s): I48.91 - Unspecified atrial fibrillation Status: Acute Assessment and Plan: * as noted on admission * heart rate have been as low as high 30s * possibly contributing to #4 * carvedilol on hold * Cardiology recommendation noted * follow telemetry * on anticoagulation with eliquis (4) Generalized weakness: Code(s): R53.1 - Weakness Status: Acute Assessment and Plan: * as noted on admission * related to #3 (?) * PT/OT following * will apparently need SNF/rehab on discharge (5) Hypotension: Code(s): I95.9 - Hypotension, unspecified Status: Chronic Assessment and Plan: * chronic issue at baseline * on midodrine therapy * contributing to #4 (?) * follow trend of hemodynamics (6) Anemia: Code(s): D64.9 - Anemia, unspecified Status: Chronic Assessment and Plan: * due to ESRD * Retacrit with HD * follow trend of H/H (7) Diabetes: Code(s): E11.9 - Type 2 diabetes mellitus without complications Status: Chronic Assessment and Plan: * follow accu-cheks * glycemic control per hospitalists Not opposed to discharge from renal perspective if otherwise medically stable -- I will continue to follow the patient at his outpatient dialysis clinic/unit. Will continue to follow. Subjective Date/time seen: 07/17/24 10:55 Interval history: Follow-up for end stage renal disease on hemodialysis. Tolerated dialysis treatment yesterday without any issues or problems; no apparent distress noted; still feels weak in general but better in comparison to admission; hoping for discharge to rehab today if everything has been finalized; at bedside and we discussed his situation. Exam 2 Narrative: General: WD/WN male in NAD Heart: normal S1 and S2; IRRR, no rub Lungs: clear anteriorly Abdomen: soft, nontender, nondistended, positive bowel sounds Extremities: no cyanosis or clubbing, 1+ edema Skin: warm and dry Objective Data Vital Signs Vital Signs: Vital Signs Temp Pulse Resp BP Pulse Ox O2 Del Method 07/17/24 08:00 Room Air 07/17/24 06:00 97.3 F L 56 L 16 100/42 L 94 07/17/24 04:00 65 07/17/24 00:00 61 07/16/24 22:05 98.0 F 59 L 16 102/59 L 94 07/16/24 22:00 97.8 F 99 18 102/63 96 07/16/24 22:00 97.8 F 99 18 102/63 96 07/16/24 20:00 67 07/16/24 20:00 Room Air 07/16/24 17:12 98.2 F 68 18 116/62 93 07/16/24 17:10 97.7 F 64 18 99/56 L 96 07/16/24 17:06 97.9 F 56 L 16 123/64 97 07/16/24 16:00 68 07/16/24 15:44 98.1 F 64 16 95/80 L 98 Intake/Output Intake/Output: Intake & Output 07/14/24 07/15/24 07/16/24 07/17/24 23:59 23:59 23:59 23:59 Intake Total 1940 1280 1280 1037 Output Total 3000 3000 50 Balance -1060 1280 -1720 987 Meds/Results Medications: Active Medications Generic Name Dose Route Start Last Admin Trade Name Freq PRN Reason Stop Dose Admin Acetaminophen 650 mg 07/12/24 20:08 07/14/24 08:28 Acetaminophen 325 Mg Tablet PO 650 mg Q6H PRN Administration Mild Pain (1-3) or Fever Albuterol 2 puff 07/12/24 23:57 Albuterol Sulfate (*Sp) Aerosol 1 Puff INHALATION Q6HRT PRN sob/wheezing Allopurinol 100 mg 07/13/24 09:00 07/17/24 08:59 Allopurinol 100 Mg Tablet PO 100 mg DAILY CESAR Administration Apixaban 2.5 mg 07/13/24 09:00 07/17/24 08:59 Apixaban 2.5 Mg Tablet PO 2.5 mg Q12HR CESAR Administration Atorvastatin Calcium 10 mg 07/13/24 09:00 07/17/24 08:58 Atorvastatin 10 Mg Tablet PO 10 mg DAILY CESAR Administration Bumetanide 1 mg 07/13/24 09:00 07/17/24 08:58 Bumetanide 1 Mg Tablet PO 1 mg BID CESAR Administration Calcitriol 0.25 mcg 07/14/24 09:00 07/16/24 09:00 Calcitriol 0.25 Mcg Capsule PO Not Given SuMoWeFr [facility] Calcium Acetate 1,334 mg 07/13/24 08:00 07/17/24 12:32 Calcium Acetate 667 Mg Tablet PO 1,334 mg TIDWM CESAR Administration Cyanocobalamin 1,000 mcg 07/13/24 09:00 07/17/24 08:59 Cyanocobalamin 1,000 Mcg Tablet PO 1,000 mcg DAILY CESAR Administration Dextrose 12.5 gm 07/12/24 20:08 Dextrose 50% 25 Gm/50 Ml Syringe IV PUSH PRN PRN Hypoglycemia Protocol Ferrous Sulfate 650 mg 07/13/24 09:00 07/16/24 14:43 Ferrous Sulfate [address] PO 650 mg Q48H CESAR Administration Fluticasone/Umeclidinium/Vilanterol 1 puff 07/13/24 09:00 07/17/24 08:17 Fluticasone/Umeclidin/Vilanter 100-62.5-25 Mcg Ellipta INHALATION 1 puff DAILY CESAR Administration Gabapentin 300 mg 07/13/24 21:00 07/16/24 20:31 Gabapentin 300 Mg Capsule PO 300 mg HS CESAR Administration Glucagon 1 mg 07/12/24 20:08 Glucagon For Inj 1 Mg Vial IM PRN PRN Hypoglycemia Protocol Glucose 15 gm 07/12/24 20:08 Glucose Oral Gel 15 Gm Of Glucse In 37.5 Gm Tube PO PRN PRN Hypoglycemia Protocol Albumin Human 50 mls @ 999 mls/hr 07/12/24 12:46 07/12/24 16:28 Albutein IVPB 08/11/24 12:45 999 mls/hr Q10M PRN Administration HYPOTENSION Dextrose 1,000 mls @ 100 mls/hr 07/12/24 20:08 Dextrose 5% 1,000 Ml IVPB PRN PRN Hypoglycemia Protocol Insulin Aspart 3 - 6 units 07/13/24 08:00 07/17/24 12:32 Insulin Aspart (*Bkc) 100 Units/Ml SUB-Q Not Given TIDWM CESAR Protocol Insulin Aspart 1 - 3 units 07/12/24 21:00 07/16/24 22:05 Insulin Aspart (*Bkc) 100 Units/Ml SUB-Q 1 units HS CESAR Administration Protocol Midodrine 10 mg 07/12/24 23:57 07/16/24 08:36 Midodrine Hcl 10 Mg Tablet PO 10 mg WITH DIALYSIS PRN Administration hypotension with dialysis Tramadol HCl 50 mg 07/12/24 23:57 07/16/24 16:43 Tramadol Hcl (*Crx) 50 Mg Tablet PO 50 mg Q8H PRN Administration pain 4-6 Vitamin D 2,000 units 07/13/24 09:00 07/17/24 08:58 Cholecalciferol 1,000 Units Tablet PO 2,000 units DAILY CESAR Administration Radiology Results: ITS Impressions Chest X-Ray 07/14/24 16:57 IMPRESSION: 1. Mild atelectasis in the midlung zones. 2. Cardiomegaly. Labs Labs: Laboratory Tests 07/14/24 04:51 07/14/24 04:51
[2024-07-17 12:07] LABS: Glucose Point of Care 165 mg/dl (65-105)
--- NOTE | 2024-07-17 12:29 | P.DS_ITS ---
DS: Admitting Diagnosis Discharge Date 07/17/2024 Admitting Diagnosis Recurrent falls DS: Discharge Diagnosis Discharge Diagnosis (1) Type 2 diabetes mellitus with diabetic neuropathy: Qualifiers: Diabetes mellitus manager intermediate insulin use: without manager intermediate use Qualified Code(s): E11.40 - Type 2 diabetes mellitus with diabetic neuropathy, unspecified Code(s): E11.40 - Type 2 diabetes mellitus with diabetic neuropathy, unspecified Status: Chronic (2) Anemia of chronic disease: Code(s): D63.8 - Anemia in other chronic diseases classified elsewhere Status: Acute (3) Hypotension: Code(s): I95.9 - Hypotension, unspecified Status: Acute (4) End-stage renal disease on hemodialysis: Code(s): N18.6 - End stage renal disease; Z99.2 - Dependence on renal dialysis Status: Acute (5) Hyperkalemia: Code(s): E87.5 - Hyperkalemia Status: Acute (6) Atrial fibrillation with slow ventricular response: Code(s): I48.91 - Unspecified atrial fibrillation Status: Acute (7) Symptomatic bradycardia: Code(s): R00.1 - Bradycardia, unspecified Status: Acute (8) Bradycardia: Code(s): R00.1 - Bradycardia, unspecified Status: Acute DS: Summary Hospital Course Hospital Course: This is 84-year-old male who presents to the ED with complaint of generalized weakness and recurrent falls. Patient fell day prior to admission and again earlier on presentation to the ER. He was unable to get himself up and had to have a friend come over to pick him up. Patient is on hemodialysis Friday. He has a right chest dialysis catheter which is not used currently and has a left arm fistula. No focal weakness reported on arrival to the ED. On arrival to the ED his vitals showed low blood pressure and bradycardia. EKG showed atrial fibrillation with bradycardia. Heart rate dips down in upper 30s to low 40s. Examination revealed peripheral extremity edema. Laboratory evaluation showed ESRD with BUN and creatinine of 60 and 7.5 suggesting end-stage renal disease. Potassium slightly elevated at 5.6 for which calcium gluconate was given. BNP elevated more than 30,000. Chest x-ray showed cardiomegaly with interstitial edema. Cardiology was consulted for symptomatic bradycardia with slow ventricular response. Avoid AV veena blocking agents. Heart rate stable since then Hypotension added midodrine on dialysis days. Generalize weakness slow and recurrent fall likely multifactorial due to bradycardia fluid overload anemia hypertension and end-stage renal disease. Chronic AFib does take Coreg at home which was held due to bradycardia. No significant pauses on telemetry monitoring through the hospital stay. No indication for pacemaker. Continue anticoagulation with apixaban. Chronic back pain status post back stimulator. This probably related to his back pain. Advised to see pain management/spine surgeon for further evaluation as an outpatient basis. Hypertension Thrombocytopenia mild chronic Congestive heart failure chronic diastolic End-stage renal disease on hemodialysis inpatient hemodialysis per nephrology Chronic anemia with no obvious bleeding. Hyperkalemia resolved with treatment. Type 2 diabetes: SSI Generalized weakness PT OT to see and suggested SNF placement is arranged with help of care coordination DVT prophylaxis on apixaban Code status full code Time Spent with Patient Time attestation: Total time spent providing and/or coordinating discharge services: 40 minutes Exam Narrative: GENERAL: Pleasant, in no acute distress. Well-nourished. - EYES: EOMI. Anicteric. - HENT: Moist mucous membranes. - LUNGS: Clear to auscultation bilateral ly, no wheezing, rhonchi, or rales. - CARDIOVASCULAR: Irregular irregular r hythm, bradycardia. No murmur. No JVD. - ABDOMEN: Soft, non-tender and non-dist ended. No palpable masses. - EXTREMITIES: 2+ lower extremities nissa ma. Peripheral pulses 2+. Non-tender. - NEUROLOGIC: No focal neurological defi cits. CN II-XII grossly intact. - PSYCHIATRIC: Awake, Alert and oriented x 3. Appropriate mood and affect. General weakness - SKIN: No rashes or lesions. Warm. - LYMPH: No cervical lymphadenopathy. DS: Data Data Completed and Pending Labs on day of discharge: Labs from last 24 hours 07/17/24 07/17/24 07/16/24 11:58 07:53 20:46 POC Capillary Glucose 165 H 125 H 219 H 07/16/24 16:56 POC Capillary Glucose 228 H Preliminary micro results at discharge 07/12/24 10:02 Blood Culture - Preliminary Blood 07/12/24 10:03 Blood Culture - Preliminary Blood Imaging Radiologist's impression: ITS Impressions Chest X-Ray 07/12/24 10:59 Impression: 1: Cardiomegaly with interstitial edema. Chest X-Ray 07/14/24 16:57 IMPRESSION: 1. Mild atelectasis in the midlung zones. 2. Cardiomegaly. Discharge Plan Discharge Attending physician on discharge: Vijay Goldsmith Consulting providers: Brittany Johnson; Sami Kolb Discharging Clinician: Vijay Goldsmith Anticipated Discharge Date/Time: 07/17/24 12:33 Patient Disposition: SNF Activity: as tolerated Diet: heart healthy, diabetic and renal Patient Instructions: Apixaban (By mouth), Heart Failure (DC), Pain Management (DC) Patient Language: Yi Stand Alone Forms: General Discharge Information Follow-up/Referrals: Ramez Ching MD [Primary Care Provider] - 1 Week Sami Kolb MD [Physician] - 4 Weeks Discharge Medications: New hydrocodone-acetaminophen 5-325 mg tablet 1 tablet PO Q8H PRN (Reason: pain) Qty: 10 0RF acetaminophen 325 mg Tablet 650 mg PO Q6H PRN (Reason: Mild Pain (1-3) Or Fever) Qty: 30 0RF Continued cholecalciferol (vitamin D3) 50 mcg (2,000 unit) capsule 50 mcg PO DAILY cyanocobalamin (vitamin B-12) 1,000 mcg Capsule 1,000 mcg PO DAILY midodrine 10 mg Tablet 10 mg PO WITH DIALYSIS PRN (Reason: hypotension with dialysis) Qty: 12 0RF calcium acetate(phosphat bind) 667 mg tablet 1,334 mg PO TIDWM gabapentin 300 mg capsule 300 mg PO HS albuterol sulfate 90 mcg/actuation HFA aerosol inhaler 2 puff inhalation Q6H PRN (Reason: sob/wheezing) liraglutide [Victoza 2-Vidal] 0.6 mg/0.1 mL (18 mg/3 mL) pen injector 1.2 mg subcut DAILY Trelegy Ellipta 100-62.5-25 mcg blister with device 1 inh inhalation DAILY (DME) blood-glucose meter Misc See Rx Instructions [id number] .MEDSUPPLY Qty: 1 0RF Rx Instructions: As directed to test blood sugar (DME) lancets Misc See Rx Instructions .ROUTE .MEDSUPPLY Qty: 200 5RF Rx Instructions: As directed to check blood sugar once daily (DME) blood sugar diagnostic [Blood Glucose Test] Strip See Rx Instructions .ROUTE .MEDSUPPLY Qty: 100 5RF Rx Instructions: As directed to check blood sugar once daily (DME) blood pressure monitor Kit See Rx Instructions .ROUTE .MEDSUPPLY Qty: 1 0RF Rx Instructions: As directed calcitriol 0.25 mcg capsule 0.25 mcg PO 4XW Qty: 48 4RF Rx Instructions: Take on Mondays, Wednesdays, Fridays, and Sundays ferrous sulfate [FeroSul] 325 mg (65 mg iron) tablet 650 mg PO EVERY OTHER DAY Qty: 90 1RF (DME) pen needle, diabetic [BD Ultra-Fine Short Pen Needle] 31 gauge x 5/16 needle See Rx Instructions .ROUTE .COMPLEX Qty: 100 0RF Dose Instruction: USE DIRECTED Rx Instructions: USE DIRECTED atorvastatin 10 mg tablet 10 mg PO DAILY Qty: 90 2RF Eliquis 2.5 mg tablet 2.5 mg PO Q12HR Qty: 180 1RF allopurinol 100 mg tablet 100 mg PO DAILY Qty: 90 3RF bumetanide 1 mg tablet 1 mg PO BID Qty: 60 5RF benzonatate 100 mg capsule See Rx Instructions .ROUTE .COMPLEX Qty: 60 0RF Dose Instruction: TAKE 1 TO 2 CAPSULES BY MOUTH THREE TIMES DAILY NEEDED FOR COUGH . DO NOT EXCEED 6 PER 24 HOURS Rx Instructions: TAKE 1 TO 2 CAPSULES BY MOUTH THREE TIMES DAILY NEEDED FOR COUGH . DO NOT EXCEED 6 PER 24 HOURS Discontinued carvedilol 6.25 mg tablet 6.25 mg PO BIDWM Date of admission: 07/12/24 12:49 Primary Care Provider: Ramez Ching Admitting Provider: Sanjay Schneider Attending physician on admission: Sanjay Schneider Condition: Stable
[2024-07-17 16:39] LABS: Glucose Point of Care 187 mg/dl (65-105)
[2024-07-17] MEDS: traMADol HCL (*CRX) 50 MG TABLET PO (17:33)
== END 2024-07-17 20:30 ==
LOC: ANHED 10:55 → ANHIMU 18:48 → ANH3MEDSUR 07-15 10:09 → ANHIMU 07-19 09:54
PROVIDERS: Internal Medicine Nephrology; Physician Assistant; Admitting Provider Internal Medicine; Emergency Provider Physician Assistant; PCP Family Medicine; Visit Provider Internal Medicine
DX: I95.9 Hypotension, unspecified (principal); R00.1 Bradycardia, unspecified; I48.20 Chronic atrial fibrillation, unspecified; E87.70 Fluid overload, unspecified; D69.6 Thrombocytopenia, unspecified; R53.1 Weakness; Z91.81 History of falling; E87.5 Hyperkalemia; I27.20 Pulmonary hypertension, unspecified; I15.2 Hypertension secondary to endocrine disorders; E11.22 Type 2 diabetes mellitus with diabetic chronic kidney disease; I13.2 Hypertensive heart and chronic kidney disease with heart failure and with stage 5 chronic kidney disease, or end stage renal disease; I50.32 Chronic diastolic (congestive) heart failure; N18.6 End stage renal disease; Z99.2 Dependence on renal dialysis; D63.1 Anemia in chronic kidney disease; E11.69 Type 2 diabetes mellitus with other specified complication; E78.2 Mixed hyperlipidemia; N40.0 Benign prostatic hyperplasia without lower urinary tract symptoms; E11.40 Type 2 diabetes mellitus with diabetic neuropathy, unspecified; D51.9 Vitamin B12 deficiency anemia, unspecified; D50.9 Iron deficiency anemia, unspecified; M54.9 Dorsalgia, unspecified; G89.29 Other chronic pain; Z96.82 Presence of neurostimulator; Z79.01 Long term (current) use of anticoagulants; Z79.85 Long-term (current) use of injectable non-insulin antidiabetic drugs; Z79.51 Long term (current) use of inhaled steroids; Z79.899 Other long term (current) drug therapy; Z96.1 Presence of intraocular lens; Z98.42 Cataract extraction status, left eye; Z98.41 Cataract extraction status, right eye; Z96.653 Presence of artificial knee joint, bilateral; Z87.891 Personal history of nicotine dependence
CPT/HCPCS: 36415; 71045; 71046; 80053; 80069; 82803; 82948; 83605; 83735; 83880; 84100; 84439; 84443; 84480; 84484; 85025; 85027; 85055; 85610; 85730; 86706; 87040; 87340; 93005; 94640; 96365; 96375; 97110; 97161; 97166; 97530; 99285; A9270; G0257; G0378; J0612; J1610; J1644; J1815; J7030; P9047; Q5105

== ENCOUNTER 2024-07-21 05:43 | Inpatient (IN) | payer MEDICARE, SELFPAY ==
[2024-07-21] VITALS (29 sets, daily range): BP systolic 111–144; BP diastolic 69–92; PULSE 71–93; RESP 14–20; TEMP 36.4–38; O2SAT 94–99
--- NOTE | ~2024-07-21 | US_ITS ---
EXAMINATION: US retroperitoneal duplex ltd DATE: 07/21/2024 19:19 INDICATION: Ascites. TECHNIQUE: Multiple grayscale and Doppler ultrasound images of the abdomen were obtained. COMPARISON: CT 07/21/2024 FINDINGS: The left, middle, and right hepatic veins are patent. There is pulsatile antegrade flow in the main portal vein and left and right portal veins. There is normal flow in proper hepatic artery. IMPRESSION: 1. Pulsatile antegrade flow in the portal veins, likely secondary to congestive heart failure. Reviewed, dictated and finalized at location A. UST EMISSIONS AUTOMOTIVE TECHNICIAN
--- NOTE | ~2024-07-21 | XR_ITS ---
EXAM: XR abdomen gastric tube rechec DATE: 07/26/2024 17:33 HISTORY: advanced NG-recheck placement . COMPARISON: Same date at 4:44 PM. FINDINGS: Right IJ dialysis catheter terminating over the right atrium. Stimulator leads project ove r the lower thoracic spine. NG tube, tip and side port over the stomach. Senescent change, and scatte red subsegmental atelectasis/scar. IMPRESSION: NG tube, in good position. Reviewed, dictated and finalized at location K. R FOAM RUBBER IMPRESSION: NG tube, in good position.
--- NOTE | ~2024-07-21 | XR_ITS ---
EXAMINATION: XR abdomen gastric tube insert DATE: 07/25/2024 04:33 INDICATION: Nasogastric tube placement. TECHNIQUE: An upright view of the abdomen was obtained. COMPARISON: None. FINDINGS: The lower abdomen is excluded. There are no visualized dilated loops of bowel. A right inte rnal jugular central venous catheter is seen with tip in the right atrium. Epidural electrodes are no nichol. The nasogastric tube tip is in the stomach. IMPRESSION: 1. Nasogastric tube tip in the stomach. Reviewed, dictated and finalized at location A. ICAL POWER TECHNICIAN
--- NOTE | ~2024-07-21 | CT_ITS ---
Clinical Indication: Unresponsive CT Scan of the Chest, Abdomen, and Pelvis without Contrast: Technique: Contiguous sections were acquired throughout the chest, abdomen, and pelvis without IV con trast administration. Dose reduction technique was used on this scan by utilizing automated exposure control and iterative reconstruction technique. The dose-length product (DLP) was 1722.48 mGy-cm. Comparison: 12/20/2023 Findings: There is no evidence of any significant mediastinal, hilar or axillary lymphadenopathy. Coronary althea ry calcifications are present. Probable mild cardiomegaly. No pericardial effusion. Small right pleural effusion present. No left pleural effusion. The lungs are clear, aside from minimal lingular atelectasis. The liver, pancreas, adrenals and right kidney are within normal limits. Small gallstones are present . 5.5 cm splenic cyst present. Indeterminate 3 cm left renal mass present. There are atherosclerotic calcifications of the aorta. No lymphadenopathy. No bowel obstruction or bowel wall thickening. There is no evidence to suggest acute appendicitis. Um bilical hernia contains a focal loop of small bowel. Urinary bladder is unremarkable. No pelvic mass seen. Small amount of abdominopelvic ascites. There i s advanced degenerative spondylosis throughout the spine. Impression: Small right pleural effusion. 3 cm indeterminate left renal mass. Further evaluation with ultrasound or pre and postcontrast CT/MR advised. Cholelithiasis. Small amount of abdominopelvic ascites. Umbilical hernia which contains a focal small bowel. Reviewed, dictated and finalized at [facility]. Y EQUIPMENT FIELD MECHANIC Impression: Small right pleural effusion. 3 cm indeterminate left renal mass. Further evaluation with ultrasound or pre a nd postcontrast CT/MR advised. Cholelithiasis. Small amount of abdominopelvic ascites. Umbilical hernia which contains a focal small bowel.
--- NOTE | ~2024-07-21 | XR_ITS ---
EXAMINATION: XR abdomen gastric tube insert DATE: 07/21/2024 18:16 INDICATION: Nasogastric tube placement. TECHNIQUE: A supine view of the abdomen was obtained. COMPARISON: CT abdomen and pelvis 07/21/2024 FINDINGS: The lower abdomen is excluded. There are no dilated loops of bowel. The nasogastric tube ti p is in the stomach. Epidural electrodes are noted. There is a central venous catheter tip in right a trium. IMPRESSION: 1. Nasogastric tube tip in the stomach. Reviewed, dictated and finalized at location A. LE PULLER
--- NOTE | ~2024-07-21 | XR_ITS ---
Portable chest x-ray Comparison: 07/14/2024 Clinical History: Altered mental status Findings: Right-sided central venous line are unchanged. There is central congestive change and prob able mild bibasilar pulmonary edema. Discoid left basilar atelectasis noted. Cardiomediastinal silhou ette is stable. Bones and soft tissues are unremarkable. Impression: Central congestive change and probable mild bibasilar pulmonary edema. Discoid left mid lung atelectasis. Stable support line. Reviewed, dictated and finalized at location . C ARTIST Impression: Central congestive change and probable mild bibasilar pulmonary edema. Discoid left mid lung atelectasis. Stable support line.
--- NOTE | ~2024-07-21 | XR_ITS ---
EXAMINATION: XR barium swallow modified DATE: 07/27/2024 08:20 INDICATION: Altered mental status. TECHNIQUE: The patient was given barium-containing material of multiple consistencies to swallow by t bernard speech pathologist while I performed fluoroscopy. Fluoroscopy exposure time was 1.9 minutes. The n umber of fluoroscopy images saved to the PACS was 1. Dose-area product was 1.657 Gy-cm^2. FINDINGS: There is vallecular residue and pyriform sinus residue. IMPRESSION: 1. No laryngeal penetration or aspiration. 2. Please refer to the speech therapy report for recommendations. Reviewed, dictated and finalized at location A. CTOR OF STRATEGIC SOURCING
--- NOTE | ~2024-07-21 | XR_ITS ---
EXAMINATION: XR barium swallow modified DATE: 07/24/2024 10:50 INDICATION: Altered mental status. TECHNIQUE: The patient was given barium-containing material of multiple consistencies to swallow by t bernard speech pathologist while I performed fluoroscopy. Fluoroscopy exposure time was 2.6 minutes. The n umber of fluoroscopy images saved to the PACS was 1. Dose-area product was 2.826 Gy-cm^2. FINDINGS: There is reduced pharyngeal squeeze and vallecular residue. IMPRESSION: 1. No laryngeal penetration or aspiration. 2. Please refer to the speech therapy report for recommendations. Reviewed, dictated and finalized at location A. RICT HOME ECONOMICS AGENT
--- NOTE | ~2024-07-21 | XR_ITS ---
EXAMINATION: XR chest 1V portable DATE: 07/25/2024 04:33 INDICATION: Shortness of breath. TECHNIQUE: A single frontal view of the chest was obtained. COMPARISON: Chest single view 07/21/2024 FINDINGS: There is mild atelectasis in the lower lung zones. No pleural effusion or pneumothorax. Car diomegaly is noted. The nasogastric tube tip is beyond the inferior margin of the radiograph, but at least to the stomach. Epidural electrodes are noted. A right internal jugular central venous catheter is seen with tip in the right atrium. IMPRESSION: 1. Mild atelectasis in the lower lung zones. 2. Cardiomegaly. Reviewed, dictated and finalized at location A. R PLAN ADJUSTER
--- NOTE | ~2024-07-21 | XR_ITS ---
XR abdomen gastric tube rechec Ordering provider: Sanjay Schneider MD History: . dislodged NG-recheck placement . Comparison: None. FINDINGS/impression: Nasogastric tube is seen with the tip in the stomach. Slight Advancement is advi sed. Reviewed, dictated and finalized at location A. WARDEN
--- NOTE | ~2024-07-21 | CT_ITS ---
EXAMINATION: CT brain wo con DATE: 07/21/2024 17:46 INDICATION: Change in mentation. TECHNIQUE: Computed tomography (CT) of the head was performed without intravenous contrast. The mA wa s adjusted according to patient size. Iterative reconstruction technique was employed. The dose-lengt h product was 1059.33 mGy-cm. COMPARISON: Head CT 07/21/2024 at 6:21 AM FINDINGS: Motion artifact is noted. There is an old infarct in the left parietal lobe deep white monique er. There are scattered areas of low attenuation in the cerebral white matter, which is within normal limits for the patient's age. There is no intracranial hemorrhage, acute infarction, or abnormal int racranial mass lesion. The ventricles are normal in size. There is mild mucosal thickening in the eth moid sinuses. The mastoid air cells are normal. There are likely changes of ocular lens replacement s urgeries. IMPRESSION: 1. 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 Reviewed, dictated and finalized at location A. CHER SET UP OPERATOR AUTOMATIC
--- NOTE | ~2024-07-21 | CT_ITS ---
Non-contrast Head CT History: Altered mental status COMPARISON: 12/20/2023 Technique: Axial non-contrast imaging of the brain was performed. Dose reduction technique was used on this scan by utilizing automated exposure control and iterative reconstruction technique. The dose -length product (DLP) was 2118.67 mGy-cm. Findings: There is no evidence of intracranial hemorrhage, mass lesion, or acute infarct. Brain par enchyma appears normal. The ventricles and subarachnoid spaces are normal in size. The calvarium ap pears normal. The visualized paranasal sinuses and mastoid air cells are clear. Impression: No significant abnormality seen. Reviewed, dictated and finalized at location . UTIVE RECRUITER Impression: No significant abnormality seen.
[2024-07-21] MEDS: NALOXONE HCL INJ 2 MG/2 ML AMP IV PUSH (05:58)
--- NOTE | 2024-07-21 05:58 | ED_ITS ---
HPI - General Adult General Chief complaint: Altered Mental Status <Sanjay Prince MD - Last Filed: 07/21/24 06:54> Stated complaint: AMS <Sanjay Prince MD - Last Filed: 07/21/24 06:54> Time Seen by Provider: 07/21/24 07:57 <Sanjay Prince MD - Last Filed: 07/21/24 06:54> History of Present Illness HPI narrative: Patient is a 84-year-old gentleman presents emergency department with chief complaint of altered mental status. Patient is a resident of a local nursing facility is end-stage renal disease on dialysis that per staff the patient was very tired yesterday and the around 2:00 a.m. the patient was minimally responsive after being woken up and then at 5:00 a.m. the patient was only responsive to painful stimuli. Patient would mumble <Sanjay Prince MD - Last Filed: 07/21/24 06:54> Related Data Home medications: Home Medications ?Medication ?Instructions ?Recorded ?Confirmed ?Last Taken ?Type cholecalciferol (vitamin D3) 50 50 mcg PO DAILY 12/26/22 07/12/24 12/17/23 History mcg (2,000 unit) capsule cyanocobalamin (vitamin B-12) 1,000 mcg PO DAILY 11/03/23 07/12/24 12/17/23 History 1,000 mcg capsule albuterol sulfate 90 mcg/actuation 2 puff inhalation Q6H PRN 07/12/24 07/12/24 Unknown History aerosol inhaler sob/wheezing calcium acetate(phosphat bind) 667 1,334 mg PO TIDWM 07/12/24 07/12/24 Unknown History mg tablet fluticasone fur. 100 mcg-umeclid 1 inh inhalation DAILY 07/12/24 07/12/24 Unknown History 62.5 mcg-vilant 25 mcg inhalat.powder (Trelegy Ellipta) gabapentin 300 mg capsule 300 mg PO HS 07/12/24 07/12/24 Unknown History liraglutide 0.6 mg/0.1 mL (18 mg/3 1.2 mg subcut DAILY 07/12/24 07/12/24 Unknown History mL) subcutaneous pen injector (Victoza 2-Vidal) <Sanjay Prince MD - Last Filed: 07/21/24 06:54> Allergies/adverse reactions: Allergies Allergy/AdvReac Type Severity Reaction Status Date / Time No Known Allergies Allergy Verified 05/24/24 13:43 <Sanjay Prince MD - Last Filed: 07/21/24 06:54> Review of Systems 2 Review of Systems: A 10 system review of systems was completed on the patient and is negative except for what is stated in the HPI. Nursing and ancillary documentation was reviewed. <Sanjay Prince MD - Last Filed: 07/21/24 06:54> [facility] Past Medical History Medical History: Medical History End-stage renal disease on hemodialysis Chronic anemia Benign prostatic hyperplasia Pulmonary hypertension Anemia of chronic disease Chronic anticoagulation Umbilical hernia Iron deficiency anemia B12 deficiency anemia Congestive heart failure Echocardiogram October 2020: Indeterminate diastolic function, EF 65-70%, mild right ventricular enlargement, mildly increased left ventricular wall thickness, mild left atrial enlargement, mild mitral valve regurgitation, mild tricuspid valve regurgitation, moderate pulmonary hypertension with RVSP 59, moderate pulmonic valve regurgitation Atrial fibrillation Essential (primary) hypertension Mixed hyperlipidemia Type 2 diabetes mellitus with diabetic neuropathy <Sanjay Prince MD - Last Filed: 07/21/24 06:54> Surgical History Surgical History: Surgical History Status post insertion of spinal cord stimulator History of cataract extraction with lens replacement History of bilateral knee arthroplasty Normal colonoscopy (~2007) <Sanjay Prince MD - Last Filed: 07/21/24 06:54> Family History Family History: Family History Father Cerebrovascular accident Mother Hypertension Sibling Hypertension Other Kidney disease, chronic, end stage on dialysis <Sanjay Prince MD - Last Filed: 07/21/24 06:54> Social History Social History: Social History Social History: Surrogate medical decision maker: Kathy Yanez, spouse. Code status: Full code. Smoking packs per day: 0.5 Smoking cigarettes per day: 10.0 Years smoked: 2.5 Smoking pack-years: 1.25 Smoking status: Former smoker Second hand tobacco smoke exposure: Yes Alcohol intake: never Substance use: current Substance use type: does not use Do You Feel Safe in your Home?: Yes Lack of Transportation: No Lack of Food: Never True Current Housing: I Have Housing Concerned About Future Housing: No Difficulty Paying Gas/Electric Bills: No Difficulty Paying for Meds: No Currently Unemployed: No Education: Bachelor's Degree Difficulty w/ Childcare or Family Care: No Living arrangements: with family Additional living arrangements comments: Lives with spouse of nearly 60 years. They have a son and daughter. Occupation/Education: retired Additional occupation/education comments: Retired from working with [employer]. Spiritual care concerns: No <Sanjay Prince MD - Last Filed: 07/21/24 06:54> Exam 2 Narrative: GENERAL: Chronically ill-appearing, non-conversant opens eyes spontaneously HEAD: Normocephalic, atraumatic. EYES: PERRLA and EOMI. ENT: Nares clear, no rhinorrhea or epistaxis. Mucous membranes moist. NECK: Supple. CHEST: Clear to auscultation. No respiratory distress. Dialysis access in the right anterior chest wall HEART: Irregular rate and rhythm. No murmur heard. Normal peripheral pulses. ABDOMEN: Soft, nontender, nondistended, normal active bowel sounds. EXTREMITIES: Normal range of motion. No edema. SKIN: Warm, dry, no rash. NEURO: Not following commands,. PSYCH: Unable to assess <Sanjay Prince MD - Last Filed: 07/21/24 06:54> Course Course Emergency Course: I have assumed care of this pt at shift change with pending CT and disposition ,i have reexamined pt. he is very confused , according to his family this has been ongoing and worse today .I did inform the family about his lab and CT findings ,agreeable for admission , I did discuss with Dr. Salguero will consult . will accept the pt . <Gareth Cortez MD - Last Filed: 07/21/24 08:12> Vital Signs Vital signs: Vital Signs Temperature 36.7 C 07/21/24 05:46 Pulse Rate 76 07/21/24 05:46 Respiratory Rate 19 07/21/24 05:46 Blood Pressure 111/80 07/21/24 05:46 Pulse Oximetry 98 07/21/24 05:46 Oxygen Delivery Room Air 07/21/24 05:46 Temperature 36.7 C 07/21/24 05:46 Pulse Rate 81 07/21/24 07:55 Respiratory Rate 14 07/21/24 07:54 Blood Pressure 142/92 H 07/21/24 07:54 Pulse Oximetry 98 07/21/24 07:54 Oxygen Delivery Room Air 07/21/24 05:46 <Sanjay Prince MD - Last Filed: 07/21/24 06:54> Vital Signs Temperature 36.7 C 07/21/24 05:46 Pulse Rate 76 07/21/24 05:46 Respiratory Rate 19 07/21/24 05:46 Blood Pressure 111/80 07/21/24 05:46 Pulse Oximetry 98 07/21/24 05:46 Oxygen Delivery Room Air 07/21/24 05:46 Temperature 36.7 C 07/21/24 05:46 Pulse Rate 81 07/21/24 07:55 Respiratory Rate 14 07/21/24 07:54 Blood Pressure 142/92 H 07/21/24 07:54 Pulse Oximetry 98 07/21/24 07:54 Oxygen Delivery Room Air 07/21/24 05:46 <Gareth Cortez MD - Last Filed: 07/21/24 08:12> Medical Decision Making MDM Narrative Medical decision making narrative: Differential diagnosis includes intracranial hemorrhage, overmedication, metabolic encephalopathy, sepsis, pneumonia, <Sanjay Prince MD - Last Filed: 07/21/24 06:54> Vital Signs Vital Signs: Vital Signs Temperature 36.7 C 07/21/24 05:46 Pulse Rate 76 07/21/24 05:46 Respiratory Rate 19 07/21/24 05:46 Blood Pressure 111/80 07/21/24 05:46 Pulse Oximetry 98 07/21/24 05:46 Oxygen Delivery Room Air 07/21/24 05:46 Temperature 36.7 C 07/21/24 05:46 Pulse Rate 81 07/21/24 07:55 Respiratory Rate 14 07/21/24 07:54 Blood Pressure 142/92 H 07/21/24 07:54 Pulse Oximetry 98 07/21/24 07:54 Oxygen Delivery Room Air 07/21/24 05:46 <Sanjay Prince MD - Last Filed: 07/21/24 06:54> Vital Signs Temperature 36.7 C 07/21/24 05:46 Pulse Rate 76 07/21/24 05:46 Respiratory Rate 19 07/21/24 05:46 Blood Pressure 111/80 07/21/24 05:46 Pulse Oximetry 98 07/21/24 05:46 Oxygen Delivery Room Air 07/21/24 05:46 Temperature 36.7 C 07/21/24 05:46 Pulse Rate 81 07/21/24 07:55 Respiratory Rate 14 07/21/24 07:54 Blood Pressure 142/92 H 07/21/24 07:54 Pulse Oximetry 98 07/21/24 07:54 Oxygen Delivery Room Air 07/21/24 05:46 <Gareth Cortez MD - Last Filed: 07/21/24 08:12> Lab Data Lab results reviewed: Yes I reviewed the patient's lab results. <Gareth Cortez MD - Last Filed: 07/21/24 08:12> Result diagrams: 07/21/24 06:00 07/21/24 06:00 <Sanjay Prince MD - Last Filed: 07/21/24 06:54> Labs: Lab Results 07/21/24 07/21/24 Range/Units 06:00 06:08 WBC 6.2 (4.5-10.0) K/mm3 RBC 4.12 L (4.6-6.20) M/mm3 Hgb 13.4 L (14.0-18.0) g/dL Hct 41.0 L (42.0-52.0) % MCV 99.5 (80-100) fl MCH 32.5 (26-34) pg MCHC 32.7 (32-36) g/dl RDW 18.6 H (11.5-14.5) % Plt Count 111 L D (150-375) k/mm3 MPV 13.0 H (7.4-10.4) fl Immature Gran % (Auto) 0.3 (0-0.5) % Neut % (Auto) 67.9 (45.5-73.1) % Lymph % (Auto) 14.9 L (18.3-44.2) % Miller % (Auto) 15.9 H (2.6-8.5) % Eos % (Auto) 0.2 (0-4.4) % Baso % (Auto) 0.8 (0.2-1.2) % Lymph # (Auto) 0.92 (0.9-3.2) K/mm3 Miller # (Auto) 1.0 H (0.1-0.6) K/mm3 Eos # (Auto) 0.0 (0-0.3) K/mm3 Baso # (Auto) 0.1 (0.0-0.1) K/mm3 Abs Immat Gran (auto) 0.02 (0.00-0.031) K/mm3 Absolute Neuts (auto) 4.2 (1.3-6.7) K/mm3 Absolute Nucleated RBC 0.000 (0.0-0.012) K/mm3 Nucleated RBC % 0.0 (0.0-0.2) % PT 20.8 H (11.1-14.7) Seconds INR 1.8 APTT 27.6 (22.3-36.8) Seconds Sodium 138 (137-145) mmol/L Potassium 5.6 H (3.4-5.0) mmol/L Chloride 100 (98-107) mmol/L Carbon Dioxide 26 (22-30) mmol/L Anion Gap 12 (4-12) mmol/L BUN 57 H (9-20) mg/dL Creatinine 8.50 H (0.7-1.3) mg/dL Estim Creat Clear Calc 8 ml/min Estimated GFR 7 L (59 - ) Glucose 132 H (65-110) mg/dL Lactic Acid 2.1 H (0.7-2.0) mmol/L Calcium 8.9 (8.4-10.2) mg/dL Magnesium 2.2 (1.6-2.3) mg/dL Total Bilirubin 3.3 H (0.2-1.3) mg/dL AST 24 (17-59) U/L ALT 14 (6-50) U/L Alkaline Phosphatase 94 (38-126) U/L Troponin I 0.028 (0.000-0.034) ng/mL NT-Pro-B Natriuret Pep > 55878 H (19.9-100) pg/mL Total Protein 8.0 (6.3-8.2) g/dL Albumin 3.7 (3.5-5.1) g/dL Lipase 58 (23-300) U/L Procalcitonin 1.1 ng/mL Urine Color Dark yellow (Yellow) Urine Appearance Clear (Clear) Urine pH 5.0 (5.0-9.0) Ur Specific [place] 1.017 (1.001-1.035) Urine Protein 2+ H (Negative) mg/dL Urine Glucose (UA) Negative (Negative) mg/dL Urine Ketones Trace H (Negative) mg/dL Ur Blood (Man) 2+ H (Negative) Urine Nitrate Negative (Negative) Urine Bilirubin Negative (Negative) Urine Urobilinogen 1.0 (<2.0) mg/dL Add Ur Microanalysis Reviewed Leukocyte Esterase Rfl 2+ H (Negative) ERNESTINE/UL Urine RBC 3-5 H (0-2) /hpf Urine WBC 11-20 H (0-3) /hpf Ur Squamous Epith Cells None seen (Few) /hpf Urine Bacteria None seen /hpf Urine Casts 0-2 Influenza A (RT-PCR) Negative (Negative) Influenza B (RT-PCR) Negative (Negative) RSV (RT-PCR) Negative (Negative) SARS-CoV-2 RNA (RT-PCR) Negative (Negative) <Sanjay Prince MD - Last Filed: 07/21/24 06:54> Lab Results 07/21/24 07/21/24 Range/Units 06:00 06:08 WBC 6.2 (4.5-10.0) K/mm3 RBC 4.12 L (4.6-6.20) M/mm3 Hgb 13.4 L (14.0-18.0) g/dL Hct 41.0 L (42.0-52.0) % MCV 99.5 (80-100) fl MCH 32.5 (26-34) pg MCHC 32.7 (32-36) g/dl RDW 18.6 H (11.5-14.5) % Plt Count 111 L D (150-375) k/mm3 MPV 13.0 H (7.4-10.4) fl Immature Gran % (Auto) 0.3 (0-0.5) % Neut % (Auto) 67.9 (45.5-73.1) % Lymph % (Auto) 14.9 L (18.3-44.2) % Miller % (Auto) 15.9 H (2.6-8.5) % Eos % (Auto) 0.2 (0-4.4) % Baso % (Auto) 0.8 (0.2-1.2) % Lymph # (Auto) 0.92 (0.9-3.2) K/mm3 Miller # (Auto) 1.0 H (0.1-0.6) K/mm3 Eos # (Auto) 0.0 (0-0.3) K/mm3 Baso # (Auto) 0.1 (0.0-0.1) K/mm3 Abs Immat Gran (auto) 0.02 (0.00-0.031) K/mm3 Absolute Neuts (auto) 4.2 (1.3-6.7) K/mm3 Absolute Nucleated RBC 0.000 (0.0-0.012) K/mm3 Nucleated RBC % 0.0 (0.0-0.2) % PT 20.8 H (11.1-14.7) Seconds INR 1.8 APTT 27.6 (22.3-36.8) Seconds Sodium 138 (137-145) mmol/L Potassium 5.6 H (3.4-5.0) mmol/L Chloride 100 (98-107) mmol/L Carbon Dioxide 26 (22-30) mmol/L Anion Gap 12 (4-12) mmol/L BUN 57 H (9-20) mg/dL Creatinine 8.50 H (0.7-1.3) mg/dL Estim Creat Clear Calc 8 ml/min Estimated GFR 7 L (59 - ) Glucose 132 H (65-110) mg/dL Lactic Acid 2.1 H (0.7-2.0) mmol/L Calcium 8.9 (8.4-10.2) mg/dL Magnesium 2.2 (1.6-2.3) mg/dL Total Bilirubin 3.3 H (0.2-1.3) mg/dL AST 24 (17-59) U/L ALT 14 (6-50) U/L Alkaline Phosphatase 94 (38-126) U/L Troponin I 0.028 (0.000-0.034) ng/mL NT-Pro-B Natriuret Pep > 16037 H (19.9-100) pg/mL Total Protein 8.0 (6.3-8.2) g/dL Albumin 3.7 (3.5-5.1) g/dL Lipase 58 (23-300) U/L Procalcitonin 1.1 ng/mL Urine Color Dark yellow (Yellow) Urine Appearance Clear (Clear) Urine pH 5.0 (5.0-9.0) Ur Specific [place] 1.017 (1.001-1.035) Urine Protein 2+ H (Negative) mg/dL Urine Glucose (UA) Negative (Negative) mg/dL Urine Ketones Trace H (Negative) mg/dL Ur Blood (Man) 2+ H (Negative) Urine Nitrate Negative (Negative) Urine Bilirubin Negative (Negative) Urine Urobilinogen 1.0 (<2.0) mg/dL Add Ur Microanalysis Reviewed Leukocyte Esterase Rfl 2+ H (Negative) ERNESTINE/UL Urine RBC 3-5 H (0-2) /hpf Urine WBC 11-20 H (0-3) /hpf Ur Squamous Epith Cells None seen (Few) /hpf Urine Bacteria None seen /hpf Urine Casts 0-2 Influenza A (RT-PCR) Negative (Negative) Influenza B (RT-PCR) Negative (Negative) RSV (RT-PCR) Negative (Negative) SARS-CoV-2 RNA (RT-PCR) Negative (Negative) <Gareth Cortez MD - Last Filed: 07/21/24 08:12> ABG Data ABG results: 07/21/24 06:02 Puncture Site Right radial ABG pH 7.481 H ABG pCO2 31.2 L ABG pO2 68.7 L ABG PO2/FiO2 Ratio 3.27 ABG HCO3 22.8 ABG O2 Saturation 95.1 ABG O2 Content 18.4 ABG Base Excess 0.2 A-a Gradient 43.7 Oxyhemoglobin 91.7 Total Hemoglobin 14.3 O2 Delivery Device Room air O2 Liters/Min Not Reportable FiO2 21 <Sanjay Pirnce MD - Last Filed: 07/21/24 06:54> 07/21/24 06:02 Puncture Site Right radial ABG pH 7.481 H ABG pCO2 31.2 L ABG pO2 68.7 L ABG PO2/FiO2 Ratio 3.27 ABG HCO3 22.8 ABG O2 Saturation 95.1 ABG O2 Content 18.4 ABG Base Excess 0.2 A-a Gradient 43.7 Oxyhemoglobin 91.7 Total Hemoglobin 14.3 O2 Delivery Device Room air O2 Liters/Min Not Reportable FiO2 21 <Gareth Cortez MD - Last Filed: 07/21/24 08:12> Imaging Data Radiologist's impression: ITS Impressions Head CT 07/21/24 07:00 Impression: No significant abnormality seen. Chest/Abdomen/Pelvis CT 07/21/24 07:04 Impression: Small right pleural effusion. 3 cm indeterminate left renal mass. Further evaluation with ultrasound or pre and postcontrast CT/MR advised. Cholelithiasis. Small amount of abdominopelvic ascites. Umbilical hernia which contains a focal small bowel. Chest X-Ray 07/21/24 07:12 Impression: Central congestive change and probable mild bibasilar pulmonary edema. Discoid left mid lung atelectasis. Stable support line. <Gareth Cortez MD - Last Filed: 07/21/24 08:12> Discharge Plan Discharge Clinical Impression: ESRD (end stage renal disease) on dialysis Altered mental status Qualifiers: Altered mental status type: disorientation Qualified Code(s): R41.0 - Disorientation, unspecified Encephalopathy Qualifiers: Encephalopathy type: unspecified encephalopathy Qualified Code(s): G93.40 - Encephalopathy, unspecified <Sanjay Prince MD - Last Filed: 07/21/24 06:54> Patient Disposition: Still a Patient <Sanjay Prince MD - Last Filed: 07/21/24 06:54> Condition: Stable <Sanjay Prince MD - Last Filed: 07/21/24 06:54> Patient Language: Wolof <Sanjay Prince MD - Last Filed: 07/21/24 06:54> Prescriptions: No Action cholecalciferol (vitamin D3) 50 mcg (2,000 unit) capsule 50 mcg PO DAILY cyanocobalamin (vitamin B-12) 1,000 mcg Capsule 1,000 mcg PO DAILY midodrine 10 mg Tablet 10 mg PO WITH DIALYSIS PRN (Reason: hypotension with dialysis) Qty: 12 0RF calcium acetate(phosphat bind) 667 mg tablet 1,334 mg PO TIDWM gabapentin 300 mg capsule 300 mg PO HS albuterol sulfate 90 mcg/actuation HFA aerosol inhaler 2 puff inhalation Q6H PRN (Reason: sob/wheezing) liraglutide [Victoza 2-Vidal] 0.6 mg/0.1 mL (18 mg/3 mL) pen injector 1.2 mg subcut DAILY Trelegy Ellipta 100-62.5-25 mcg blister with device 1 inh inhalation DAILY acetaminophen 325 mg Tablet 650 mg PO Q6H PRN (Reason: Mild Pain (1-3) Or Fever) Qty: 30 0RF hydrocodone-acetaminophen 5-325 mg tablet 1 tablet PO Q8H PRN (Reason: pain) Qty: 10 0RF (DME) blood-glucose meter Misc See Rx Instructions [id number] .MEDSUPPLY Qty: 1 0RF Rx Instructions: As directed to test blood sugar (DME) lancets Misc See Rx Instructions .ROUTE .MEDSUPPLY Qty: 200 5RF Rx Instructions: As directed to check blood sugar once daily (DME) blood sugar diagnostic [Blood Glucose Test] Strip See Rx Instructions .ROUTE .MEDSUPPLY Qty: 100 5RF Rx Instructions: As directed to check blood sugar once daily (DME) blood pressure monitor Kit See Rx Instructions .ROUTE .MEDSUPPLY Qty: 1 0RF Rx Instructions: As directed calcitriol 0.25 mcg capsule 0.25 mcg PO 4XW Qty: 48 4RF Rx Instructions: Take on Mondays, Wednesdays, Fridays, and Sundays ferrous sulfate [FeroSul] 325 mg (65 mg iron) tablet 650 mg PO EVERY OTHER DAY Qty: 90 1RF (DME) pen needle, diabetic [BD Ultra-Fine Short Pen Needle] 31 gauge x 5/16 needle See Rx Instructions .ROUTE .COMPLEX Qty: 100 0RF Dose Instruction: USE DIRECTED Rx Instructions: USE DIRECTED atorvastatin 10 mg tablet 10 mg PO DAILY Qty: 90 2RF Eliquis 2.5 mg tablet 2.5 mg PO Q12HR Qty: 180 1RF allopurinol 100 mg tablet 100 mg PO DAILY Qty: 90 3RF bumetanide 1 mg tablet 1 mg PO BID Qty: 60 5RF benzonatate 100 mg capsule See Rx Instructions .ROUTE .COMPLEX Qty: 60 0RF Dose Instruction: TAKE 1 TO 2 CAPSULES BY MOUTH THREE TIMES DAILY NEEDED FOR COUGH . DO NOT EXCEED 6 PER 24 HOURS Rx Instructions: TAKE 1 TO 2 CAPSULES BY MOUTH THREE TIMES DAILY NEEDED FOR COUGH . DO NOT EXCEED 6 PER 24 HOURS <Sanjay Prince MD - Last Filed: 07/21/24 06:54> Follow-up/Referrals: Ramez Ching MD [Primary Care Provider] - <Sanjay Prince MD - Last Filed: 07/21/24 06:54>
[2024-07-21 06:11] LABS: Alveolar/Arterial O2 Gradient 43.7 mmHg; Base Excess ABG 0.2 mEq/l (+/-2.0); Fractional Inspired Oxygen 21 %; HCO3 ABG 22.8 mEq/l (22.0-26.0); Oxygen Content ABG 18.4 %vol (16.0-22.0); Oxygen Saturation ABG 95.1 % (95.0-100.0); Oxyhemoglobin 91.7 % THb (90.0-100.0); PCO2 ABG 31.2 mmHg (35.0-45.0); PO2 ABG 68.7 mmHg (80.0-100.0); PO2 FiO2 Ratio Arterial Blood 3.27 %; Total Hemoglobin 14.3 g/dL (12.0-18.0); pH ABG 7.481 (7.350-7.450)
[2024-07-21 06:12] LABS: Device ROOM AIR; Modified Allen's Test Pass; Site Drawn RIGHT RADIAL
[2024-07-21 06:14] LABS: Basophils Absolute Auto 0.1 K/mm3 (0.0-0.1); Basophils Percent Auto 0.8 % (0.2-1.2); Eosinophils Percent Auto 0.2 % (0-4.4); Hemoglobin 13.4 g/dL (14.0-18.0); Immature Granulocyte Absolute 0.02 K/mm3 (0.00-0.031); Immature Granulocyte Percent A 0.3 % (0-0.5); Lymphocytes Absolute Auto 0.92 K/mm3 (0.9-3.2); Lymphocytes Percent Auto 14.9 % (18.3-44.2); Mean Corpuscular HGB Conc 32.7 g/dl (32-36); Mean Corpuscular Hemoglobin 32.5 pg (26-34); Mean Corpuscular Volume 99.5 fl (80-100); Monocytes Percent Auto 15.9 % (2.6-8.5); Neutrophils Absolute Auto 4.2 K/mm3 (1.3-6.7); Neutrophils Percent Auto 67.9 % (45.5-73.1); Platelet Count Result 111 k/mm3 (150-375); Red Blood Count 4.12 M/mm3 (4.6-6.20); Red Cell Distribution Width 18.6 % (11.5-14.5); White Blood Count 6.2 K/mm3 (4.5-10.0)
[2024-07-21 06:18] LABS: Lactic Acid Reflex 2.1 mmol/L (0.7-2.0)
[2024-07-21 06:20] LABS: Alanine Aminotransferase 14 U/L (6-50); Albumin Level 3.7 g/dL (3.5-5.1); Alkaline Phosphatase 94 U/L (38-126); Anion Gap 12 mmol/L (4-12); Aspartate Amino Transferase 24 U/L (17-59); Bilirubin,Total 3.3 mg/dL (0.2-1.3); Blood Urea Nitrogen 57 mg/dL (9-20); Calcium 8.9 mg/dL (8.4-10.2); Carbon Dioxide 26 mmol/L (22-30); Chloride 100 mmol/L (98-107); Estimated CRCL calculation 8 ml/min; Estimated Glomerular Filt Rate 7; Glucose 132 mg/dL (65-110); Lipase 58 U/L (23-300); Magnesium 2.2 mg/dL (1.6-2.3); Potassium 5.6 mmol/L (3.4-5.0); Sodium 138 mmol/L (137-145)
[2024-07-21 06:22] LABS: INR 1.8; Prothrombin Time 20.8 Seconds (11.1-14.7)
[2024-07-21 06:23] LABS: Partial Thromboplastin Time 27.6 Seconds (22.3-36.8)
[2024-07-21 06:30] LABS: NT Pro B Type Natriuretic Pept > 30000 pg/mL (19.9-100); Troponin I 0.028 ng/mL (0.000-0.034)
[2024-07-21 06:34] LABS: Add Urine Microscopic? YES; Appearance Urine Clear (Clear); Bacteria Urine None Seen /hpf; Bilirubin Urine Negative (Negative); Blood Urine 2+ (Negative); Color Urine Dark Yellow (Yellow); Glucose Urine UA Negative (Negative); Ketones Urine Trace mg/dL (Negative); Leukocyte Esterase Ur 2+ LEU/UL (Negative); Need Manual Microscopic Reviewed; Nitrate Urine Negative (Negative); Non Pathogenic Casts 0-2; Protein Urine 2+ mg/dL (Negative); Specific Grav Ur 1.017 (1.001-1.035); Squamous Epithelial Cell Urine None Seen /hpf (Few)
[2024-07-21 06:52] LABS: Procalcitonin 1.1 ng/mL
[2024-07-21 06:53] LABS: Influenza A QL RT-PCR Negative (Negative); Influenza B QL RT-PCR Negative (Negative); RSV RNA, RT-PCR Negative (Negative); SARS-CoV-2 RNA PCR Negative (Negative)
--- NOTE | 2024-07-21 08:16 | ECG_ITS ---
Test Date: 2024-07-21 05:47:36 Measurements Intervals [place] Rate: 61 P: 0 RI: 0 QRS: 151 QRSD: 157 T: 17 QT: 450 QTc: 455 Interpretive Statements ATRIAL FIBRILLATION RIGHT BUNDLE BRANCH BLOCK [120+ ms QRS DURATION, UPRIGHT V1, 40+ ms S IN I/aVL/V4/V5/V6] ANTEROSEPTAL MYOCARDIAL INFARCTION , OF INDETERMINATE AGE [40+ ms Q WAVE IN V1-V4] MODERATE T-WAVE ABNORMALITY, CONSIDER LATERAL ISCHEMIA [-0.1+ mV T WAVE IN I/aVL/V5/V6] WARNING: DATA QUALITY MAY AFFECT INTERPRETATION Compared to ECG 07/12/2024 09:43:50 No significant changes Electronically Signed On 07-21-2024 14:40:33 SYSTEM PLANNING ENGINEER by Sacha Joiner M.D.
--- NOTE | 2024-07-21 08:25 | ECG_ITS ---
Test Date: 2024-07-21 08:27:19 Measurements Intervals [place] Rate: 75 P: 0 WI: 0 QRS: 151 QRSD: 159 T: 19 QT: 437 QTc: 488 Interpretive Statements ATRIAL FIBRILLATION RIGHT BUNDLE BRANCH BLOCK [120+ ms QRS DURATION, UPRIGHT V1, 40+ ms S IN I/aVL/V4/V5/V6] ANTEROSEPTAL MYOCARDIAL INFARCTION , OF INDETERMINATE AGE [40+ ms Q WAVE IN V1-V4] MODERATE T-WAVE ABNORMALITY, CONSIDER LATERAL ISCHEMIA [-0.1+ mV T WAVE IN I/aVL/V5/V6] Compared to ECG 07/21/2024 05:47:36 NO SIGNIFICANT CHANGES Electronically Signed On 07-21-2024 14:42:30 SOLARIS ADMINISTRATOR by Sacha Joiner M.D.
[2024-07-21 08:43] LABS: Ammonia 122 umol/L (9-30)
[2024-07-21 08:55] LABS: Troponin I 0.031 ng/mL (0.000-0.034)
[2024-07-21 09:05] LABS: Reflex Lactic Acid Yes or No Add Lactic
[2024-07-21 09:36] LABS: Lactic Acid 2.5 mmol/L (0.7-2.0)
--- NOTE | 2024-07-21 10:49 | ADMGEN ---
This patient, Khalif Yanez, was admitted to [facility] Surg Room 304-01. Patient/family oriented to hospital policies and general routines including ID bracelet, bed and alarms, visiting hours, pain management, procedures, bathroom and other care routines, personal items, smoking policy, room service/diet, and visiting hours. Information on how to activate the Rapid Response Team has been discussed. Patient/Family are encouraged to report perceived risks to care and to ask questions if they do not understand what they are told or what they should do. Patient went straight to dialysis room from er.
--- NOTE | 2024-07-21 12:06 | P.HP_ITS ---
H&P: HPI History of Present Illness Date/Time: 07/21/24 12:06 Chief Complaint: Altered Mental Status Narrative: 84 y/o M presents here with altered mental status with PMH of ESRD on HD, chronic anemia, BPH, pulmonary hypertension, VANNESA, B12 anemia, CHF, Afib, HTN, HLD, and DM. The patient presents here from [facility] for further evaluation of altered mental status. senior care staff reported to EMS that they found the patient minimally responsive at 02:00 a.m. Patient then became only responsive to pain around 05:00 a.m. Per nursing staff notes, the patient arrived to the ER responsive to pain with attempts at speech that were not intelligible. He has a hx of ESRD on HD. the patient is unable to contribute meaningfully to HPI given alteration. The reports the following, She reports that he was generally weak yesterday including both upper extremities and lower extremities. She denies asymmetric weakness noted by her or the patient. Later yesterday evening he continued to get worse and appeared more confused. She reports no previous history of cirrhosis or ETOH use. No further history available. Patient was recently admitted here at [facility] from 07/12/24-07/17/24 4 generalized weakness and recurrent falls. Patient was diagnosed with symptomatic bradycardia with slow ventricular response and hypotension. Recommended to avoid AV veena blocking agents and was started on midodrine. He was discharged to an SNF for PT/OT. Initial VS at presentation: 98.1? F, HR 76, RR 19, 111/80, and 98% on RA. ED workup showed: no leukocytosis, hemoglobin 13.4, platelet count 111, INR 1.8 patient's, ABG showed pH of 7.481 6, potassium 5.6, creatinine 8.5 and GFR 7 (previously 6.8 and by GFR 9 on 07/14/2024), lactic 2.1 with repeat at 2.5, ammonia 122, total bilirubin 3.3, initial troponin 0.028, and BNP >39795. UA showed 2+ protein, trace ketones, 2+ blood, 2+ leuks, 3-5 RBC, 11-20 WBC with no epithelial cells or bacteria. Viral PCR negative. Head CT showed no sig nificant abnormality seen. CT of the chest abdomen pelvis showed a small right pleural effusion, 3 cm indeterminate left renal mass, cholelithiasis, small amount of abdominal pelvic ascites, umbilical hernia which contains a focal small bowel. CXR showed central congestive changes and probable mild bibasilar pulmonary edema, discoid left mid lung atelectasis, stable support line. Review of Systems Review of Systems: ROS unobtainable: Yes unobtainable due to mental status [facility] Past Medical History Medical History Gout Sleep apnea intolerant of CPAP End-stage renal disease on hemodialysis Chronic anemia Benign prostatic hyperplasia Pulmonary hypertension Anemia of chronic disease Chronic anticoagulation Umbilical hernia Iron deficiency anemia B12 deficiency anemia Congestive heart failure Echocardiogram October 2020: Indeterminate diastolic function, EF 65-70%, mild right ventricular enlargement, mildly increased left ventricular wall thickness, mild left atrial enlargement, mild mitral valve regurgitation, mild tricuspid valve regurgitation, moderate pulmonary hypertension with RVSP 59, moderate pulmonic valve regurgitation Atrial fibrillation Essential (primary) hypertension Mixed hyperlipidemia Type 2 diabetes mellitus with diabetic neuropathy Surgical History Surgical History Status post insertion of spinal cord stimulator History of cataract extraction with lens replacement History of bilateral knee arthroplasty Normal colonoscopy (~2007) Family History Family History Father Cerebrovascular accident Mother Hypertension Sibling Hypertension Other Kidney disease, chronic, end stage on dialysis Social History Social History Social History: Surrogate medical decision maker: Kathy Yanez, spouse. Code status: Full code. Smoking packs per day: 0.5 Smoking cigarettes per day: 10.0 Years smoked: 2.5 Smoking pack-years: 1.25 Smoking status: Former smoker Second hand tobacco smoke exposure: Yes Alcohol intake: unknown Substance use: unknown Substance use type: unknown Do You Feel Safe in your Home?: Yes Lack of Transportation: No Lack of Food: Never True Current Housing: I Have Housing Concerned About Future Housing: No Difficulty Paying Gas/Electric Bills: No Difficulty Paying for Meds: No Currently Unemployed: No Education: Bachelor's Degree Difficulty w/ Childcare or Family Care: No Living arrangements: with family Additional living arrangements comments: Lives with spouse of nearly 60 years. They have a son and daughter. 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 Spiritual care concerns: No Meds Home Medications and Allergies Home Medications ?Medication ?Instructions ?Recorded ?Confirmed ?Type blood pressure monitor #1 ea 01/10/20 07/12/24 Rx blood sugar diagnostic (Blood #100 ea 01/10/20 07/12/24 Rx Glucose Test strips) blood-glucose meter #1 ea 01/10/20 07/12/24 Rx lancets #200 ea 01/10/20 07/12/24 Rx cholecalciferol (vitamin D3) 50 50 mcg PO DAILY 12/26/22 07/21/24 History mcg (2,000 unit) capsule cyanocobalamin (vitamin B-12) 1,000 mcg PO DAILY 11/03/23 07/21/24 History 1,000 mcg capsule calcitriol 0.25 mcg capsule 0.25 mcg PO 4XW #48 caps 11/19/23 07/21/24 Rx midodrine 10 mg tablet 10 mg PO WITH DIALYSIS PRN 12/30/23 07/21/24 Rx hypotension with dialysis #12 tabs ferrous sulfate 325 mg (65 mg 650 mg (2 x 325 mg (65 mg iron)) 01/31/24 07/21/24 Rx iron) tablet (FeroSul) PO EVERY OTHER DAY #90 tabs pen needle, diabetic 31 gauge x #100 ea 02/16/24 07/12/24 Rx 5/16 (BD Ultra-Fine Short Pen Needle) atorvastatin 10 mg tablet 10 mg PO DAILY #90 tabs 02/23/24 07/21/24 Rx apixaban 2.5 mg tablet (Eliquis) 2.5 mg PO Q12HR #180 tabs 03/12/24 07/21/24 Rx allopurinol 100 mg tablet 100 mg PO DAILY #90 tabs 03/31/24 07/21/24 Rx bumetanide 1 mg tablet 1 mg PO BID #60 tabs 06/16/24 07/21/24 Rx benzonatate 100 mg capsule See Rx Instructions .Route 07/05/24 07/21/24 Rx .COMPLEX #60 caps albuterol sulfate 90 mcg/actuation 2 puff inhalation Q6H PRN 07/12/24 07/21/24 History aerosol inhaler sob/wheezing calcium acetate(phosphat bind) 667 1,334 mg PO TIDWM 07/12/24 07/21/24 History mg tablet gabapentin 300 mg capsule 300 mg PO HS 07/12/24 07/21/24 History liraglutide 0.6 mg/0.1 mL (18 mg/3 1.2 mg subcut DAILY 07/12/24 07/21/24 History mL) subcutaneous pen injector (Victoza 2-Vidal) acetaminophen 325 mg tablet 650 mg (2 x 325 mg) PO Q6H PRN 07/17/24 07/21/24 Rx Mild Pain (1-3) Or Fever #30 tabs hydrocodone 5 mg-acetaminophen 325 1 tablet PO Q8H PRN pain #10 tabs 07/17/24 07/21/24 Rx mg tablet fluticasone 250 mcg-salmeterol 50 1 inh inhalation Q12H 07/21/24 07/21/24 History mcg/dose blistr powdr for inhalation (Advair Diskus) fluticasone 250 mcg-salmeterol 50 1 inh inhalation Q12H 07/21/24 07/21/24 History mcg/dose blistr powdr for inhalation (Advair Diskus) Allergies Allergy/AdvReac Type Severity Reaction Status Date / Time No Known Allergies Allergy Verified 05/24/24 13:43 Vital Signs Vital Signs - 24 hr 07/21/24 05:46 07/21/24 05:46 07/21/24 07:54 Temperature 98.1 F Pulse Rate 76 81 Respiratory Rate 19 14 Blood Pressure 111/80 142/92 H Pulse Oximetry 98 98 Oxygen Delivery Room Air Room Air 07/21/24 07:55 07/21/24 09:56 Temperature Pulse Rate 81 87 Respiratory Rate 20 Blood Pressure 141/77 H Pulse Oximetry 97 Oxygen Delivery Exam Narrative: Reassessment at 16:45 - Patient no longer has spontaneous eye opening. Pupils are 2 mm and reactive bilaterally. Gaze to the right without nystagmus. No movement to upper extremities or lower extremities. No tremor on exam. Lung sounds are clear, no increased work of breathing or tachypnea. S1-S2 present without murmur, rub, ectopy. Const: Other: , male, chronically ill-appearing, obese body habitus, elderly HENMT: Face/Nose/Sinus: Normal nares present Mouth: Yes dry mucous membranes ( dry to tacky) Eyes: General: appearance normal, both eyes and all related structures Scle ra: sclerae normal Pupils: Equal, round and reactive pupils present (3 mm bilaterally) Other: reaction the light mildly sluggish Resp: Effort & Inspection: normal respiratory effort Auscultation: clear to auscultation bilaterally Cardio: Rate: regular rate Rhythm: regular rhythm Other: S1-S2 present without murmur, rub, ectopy GI: Other: rounded, soft, nontender. Normoactive bowel sounds in all quadrants. Skin: General skin exam: normal color and no rashes or lesions noted Wounds: no wounds Neuro: Other: Spontaneous eye opening, nonverbal, moving upper extremities. Not following commands. Alert but not regarding. Extrem: General: normal to inspection Psych: Other: Unable to assess. H&P: Results Labs Labs: Short CBC 07/21/24 Range/Units 06:00 WBC 6.2 (4.5-10.0) K/mm3 Hgb 13.4 L (14.0-18.0) g/dL Hct 41.0 L (42.0-52.0) % Plt Count 111 L D (150-375) k/mm3 BMP 07/21/24 06:00 Sodium 138 Potassium 5.6 H Chloride 100 Carbon Dioxide 26 BUN 57 H Creatinine 8.50 H Glucose 132 H Calcium 8.9 Cardiac Enzymes 07/21/24 07/21/24 Range/Units 06:00 08:29 Troponin I 0.028 0.031 (0.000-0.034) ng/mL Liver Function 07/21/24 Range/Units 06:00 Total Bilirubin 3.3 H (0.2-1.3) mg/dL AST 24 (17-59) U/L ALT 14 (6-50) U/L Alkaline Phosphatase 94 (38-126) U/L Albumin 3.7 (3.5-5.1) g/dL Urine 07/21/24 Range/Units 06:08 Urine Color Dark yellow (Yellow) Urine Appearance Clear (Clear) Urine pH 5.0 (5.0-9.0) Ur Specific [place]ctor 1.017 (1.001-1.035) Urine Protein 2+ H (Negative) mg/dL Urine Glucose (UA) Negative (Negative) mg/dL Assessment and Plan Assessment and plan (1) Altered mental status: Qualifiers: Altered mental status type: disorientation Qualified Code(s): R41.0 - Disorientation, unspecified Code(s): R41.82 - Altered mental status, unspecified Status: Acute Assessment and Plan: - did not meet SIRS criteria, however lactic 2.1 ->2.5. blood cultures obtained, follow. - CT head: No significant abnormality seen. - CXR negative for PNA. viral PCR negative. - UA equivocal for UTI, given alteration with start abx. follow culture. no previous resistances. - CT chest/abd/pelvis: Small right pleural effusion. 3 cm indeterminate left renal mass. Further evaluation with ultrasound or pre and postcontrast CT/MR advised. Cholelithiasis. Small amount of abdominopelvic ascites. Umbilical hernia which contains a focal small bowel - ammonia 122, see below - troponin: 0.028 -> 0.031 - neurochecks Q2H with transfer to IMU for closer monitoring - hold gabapentin, [place] - repeat ABG - suspect new alteration secondary to ammonia levels (2) Increased ammonia level: Code(s): R79.89 - Other specified abnormal findings of blood chemistry Status: Acute Assessment and Plan: - ammonia 122 - total bilirubin 3.3, normal AST/ ALT, alk-phos 94. add direct bilirubin. - no history of cirrhosis or ETOH use - US of abdomen to assess portal system - small amount of abdominal pelvic ascites on CT, no abnormalities seen of the liver. - lactulose enema t.i.d. - trend ammonia (3) Acute on chronic diastolic CHF (congestive heart failure): Code(s): I50.33 - Acute on chronic diastolic (congestive) heart failure Status: Acute Assessment and Plan: - CXR: Central congestive change and probable mild bibasilar pulmonary edema. Discoid left mid lung atelectasis. Stable support line. - BNP > 30,000 - most recent echo (12/2023): normal systolic function, estimated EF 65-70%, pulmonary hypertension. See report for details. - update echo - currently on Bumex 1 mg b.i.d. p.o., continue as same. plan for dialysis. - monitor I&Os and daily weights - trend renal function (4) ESRD (end stage renal disease) on dialysis: Code(s): N18.6 - End stage renal disease; Z99.2 - Dependence on renal dialysis Status: Acute Assessment and Plan: - creatinine 8.5 and GFR 7 - nephrology consulted for inpatient dialysis - HD on: MWF - continue midodrine prn - trend renal function - trend electrolytes, correct as needed (5) Diabetes: Qualifiers: Chronic kidney disease stage: on chronic dialysis Diabetes mellitus complication detail: with chronic kidney disease Diabetes mellitus complication status: with kidney complications Diabetes mellitus intermediate insulin use: without intermediate use Diabetes mellitus type: type 2 Qualified Code(s): E11.22 - Type 2 diabetes mellitus with diabetic chronic kidney disease; N18.6 - End stage renal disease; Z99.2 - Dependence on renal dialysis Code(s): E11.9 - Type 2 diabetes mellitus without complications Status: Chronic Assessment and Plan: - hypoglycemia protocol - POC blood glucose Q6H, currently NPO - home medication: Victoza subQ daily - correct regimen ordered - high dose Q6H while NPO - A1C 6.5% on 03/06/2024 (6) Anemia: Qualifiers: Anemia type: unspecified type Qualified Code(s): D64.9 - Anemia, unspecified Code(s): D64.9 - Anemia, unspecified Status: Chronic Assessment and Plan: - hemoglobin 13.4 - multifactorial: chronic kidney disease, iron deficiency, B12 deficiency - continue oral supplements - trend Plan Patient arrived from dialysis obtunded. Now without spontaneous eye opening. Not moving any extremities. Gaze to the right without nystagmus. confirms patient is full code. Will repeat head CT and transition patient to IMU. Patient has spine stimulator in place, likely not good Candidate for MRI. Nursing staff requested card for implanted device from . If obtained, will order imaging. Diet: NPO GI Prophylaxis: not currently indicated DVT Prophylaxis: SCDs Lines: peripheral Code Status: Full code Quality VTE Prophylaxis VTE prophylaxis: mechanical ordered Hospitalist [facility] Advance Care Plan I have confirmed that the patient's Advanced Care Plan is present, code status is documented, or surrogate decision maker is listed in patient medical record.: Yes Medication Reconciliation I have utilized all available resources to obtain, update and review the patients current medications (includes all prescriptions, OTC, herbals, cannabis, and nutritional supplements).: Yes
--- NOTE | 2024-07-21 12:25 | P.CONNP_ITS ---
Assessment and Plan Assessment and plan (1) End-stage renal disease (ESRD): Code(s): N18.6 - End stage renal disease Status: Chronic Assessment and Plan: * HD today * continue Fri/Fri/Friday dialysis schedule while hospitalized * follow electrolytes, volume status, and clearance (2) Hyperkalemia: Code(s): E87.5 - Hyperkalemia Status: Acute Assessment and Plan: * as noted on admission labs * should correct with dialysis * follow trend (3) Altered mental status: Qualifiers: Altered mental status type: disorientation Qualified Code(s): R41.0 - Disorientation, unspecified Code(s): R41.82 - Altered mental status, unspecified Status: Acute Assessment and Plan: * as noted on presentation * no evidence of infection/sepsis... * however, mild lactic acidosis noted * imaging reviewed: * CT head: No significant abnormality seen. * CXR negative for PNA. viral PCR negative. * CT chest/abd/pelvis: small right pleural effusion, 3 cm indeterminate left renal mass, cholelithiasis, small amount of abdominopelvic ascites, umbilical hernia which contains a focal small bowel * questionable UTI by UA * elevated ammonia level noted * holding potential sedative medications (gabapentin and norco) * follow trend of mental status (4) Hypotension: Code(s): I95.9 - Hypotension, unspecified Status: Chronic Assessment and Plan: * chronic issue at baseline * on midodrine therapy * follow trend of hemodynamics (5) Anemia: Qualifiers: Anemia type: unspecified type Qualified Code(s): D64.9 - Anemia, unspecified Code(s): D64.9 - Anemia, unspecified Status: Chronic Assessment and Plan: * due to ESRD * hold Retacrit since Hgb > 10 * follow trend of H/H (6) Diabetes: Qualifiers: Chronic kidney disease stage: on chronic dialysis Diabetes mellitus complication detail: with chronic kidney disease Diabetes mellitus complication status: with kidney complications Diabetes mellitus commercial litigation associate insulin use: w [facility] commercial litigation associate use Diabetes mellitus type: type 2 Qualified Code(s): E11.22 - Type 2 diabetes mellitus with diabetic chronic kidney disease; N18.6 - End stage renal disease; Z99.2 - Dependence on renal dialysis Code(s): E11.9 - Type 2 diabetes mellitus without complications Status: Chronic Assessment and Plan: * follow accu-cheks * glycemic control per hospitalists I will continue follow the patient with you while he remains hospitalized and make further recommendations as needed. Thank you for allowing me to participate in the care of this patient. History of Present Illness Reason for Consult Consult date: 07/21/24 Reason for consult: end stage renal disease Chief Complaint Chief complaint: Altered Mental Status, ESRD, Encephalopathy History of Present Illness Narrative: The patient is me 4-year-old male a past medical history as outlined who presented to [facility] his nursing facility due to altered mental status. Most of the information I have obtained is from review of the electronic medical record as well as discussion with the ER physician earlier today as the patient is unable provide me with any meaningful history given his current mentation. The patient's reports that he was generally weak the day before admission particularly with regard to reduced strength in his upper and lower extremities. Later that evening, the symptoms appeared to worsen in association with confusion. It should be noted that the patient was just recently discharged from [facility] for symptoms related to generalized weakness and recurrent falls. At that time, it was felt that his significant bradycardia and atrial fibrillation with slow ventricular response in association with his known chronic hypotension was the etiology of these issues. His carvedilol was discontinued and his heart rate seem to improve but he was recommended that [facility] for [facility] PT/ OT prior to discharge home and hence his discharge to his current nursing facility. Nursing staff reported that he was found minimally responsive around 2:00 a.m. this morning which further deteriorate to the point where his only responsive to pain at about a.m. and this subsequently led to a call to EMS subsequent transfer to the ER for further assessment. Workup and evaluation emergency found the patient to be hemodynamically stable and afebrile. Subsequent evaluation demonstrated CBC which was essentially normal aside from a low platelet count, a chemistry that was consistent with his known history of end-stage renal disease, an ABG with a pH is 7.48, lactic acid 2.5, ammonia level of 122, normal LFTs, BNP greater than 30,000, viral testing for RSV/influenza/COVID that was negative, and a UA with 2+ blood, 2+ leukocyte esterase but no bacteria. CT scan of the head showed no significant abnormalities and a subsequent CT of the chest abdomen and pelvis showed a small right pleural effusion, 3 cm indeterminate left renal mass, cholelithiasis small amount abdominopelvic ascites, and bili call hernia which contained a focal small-bowel. His chest x-ray showed central congestive changes and mild bibasilar pulmonary edema. Despite the above testing, his mentation did not improve with supportive therapy and he was subsequent admitted to the hospital for further evaluation therapy. Renal consultation was requested due to his end stage renal disease. The patient is quite familiar to me as I take care of his outpatient dialysis needs. He normally dialyzes on a Friday, Friday, Friday dialysis schedule at [facility] under my care. His history with regard to kidney disease is somewhat complicated. In July of 2023 he was initiated on renal replacement therapy/dialysis for better control of his fluid status as he had evidence of diuretic resistance during his acute hospitalization at that time. His fluid and overall volume status improved on dialysis but then his last labs in late September demonstrated evidence of renal recovery. A subsequent 24 hour urine collection demonstrated that he had reasonable renal function as well as urine output so dialysis was discontinued. However, then, he was hospitalized again in December of 2023 for a similar presentation of fluid overload/anasarca resistant to IV diuretic therapy. He was once again reinstituted on renal replacement therapy/dialysis with the assumption that he requires dialysis to maintain his fluid status as diuretics alone are unable to maintain euvolemia. He has been dialysis dependent since that time but this has resulted in improved stability in his swelling/edema and overall clinical status. He is due for dialysis today but was transferred to the ER earlier this morning due to his altered mental status Currently, at the time my visit, he does not appear to be any acute distress but remains noncommunicative/nonverbal but is tolerating dialysis at the time of my visit (seen on HD at 12:15PM). Review of Systems 2 Review of Systems: As per HPI. [facility] Past Medical History Medical History Gout Sleep apnea intolerant of CPAP End-stage renal disease on hemodialysis Chronic anemia Benign prostatic hyperplasia Pulmonary hypertension Anemia of chronic disease Chronic anticoagulation Umbilical hernia Iron deficiency anemia B12 deficiency anemia Congestive heart failure Echocardiogram October 2020: Indeterminate diastolic function, EF 65-70%, mild right ventricular enlargement, mildly increased left ventricular wall thickness, mild left atrial enlargement, mild mitral valve regurgitation, mild tricuspid valve regurgitation, moderate pulmonary hypertension with RVSP 59, moderate pulmonic valve regurgitation Atrial fibrillation Essential (primary) hypertension Mixed hyperlipidemia Type 2 diabetes mellitus with diabetic neuropathy Surgical History Surgical History Status post insertion of spinal cord stimulator History of cataract extraction with lens replacement History of bilateral knee arthroplasty Normal colonoscopy (~2007) Family History Family History Father Cerebrovascular accident Mother Hypertension Sibling Hypertension Other Kidney disease, chronic, end stage on dialysis Social History Social History Social History: Surrogate medical decision maker: Kathy Yanez, spouse. Code status: Full code. Smoking packs per day: 0.5 Smoking cigarettes per day: 10.0 Years smoked: 2.5 Smoking pack-years: 1.25 Smoking status: Former smoker Second hand tobacco smoke exposure: Yes Alcohol intake: unknown Substance use: unknown Substance use type: unknown Do You Feel Safe in your Home?: Yes Lack of Transportation: No Lack of Food: Never True Current Housing: I Have Housing Concerned About Future Housing: No Difficulty Paying Gas/Electric Bills: No Difficulty Paying for Meds: No Currently Unemployed: No Education: Bachelor's Degree Difficulty w/ Childcare or Family Care: No Living arrangements: with family Additional living arrangements comments: Lives with spouse of nearly 60 years. They have a son and daughter. 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 Spiritual care concerns: No Meds Home Medications and Allergies Home Medications ?Medication ?Instructions ?Recorded ?Confirmed ?Type cholecalciferol (vitamin D3) 50 50 mcg PO DAILY 12/26/22 07/21/24 History mcg (2,000 unit) capsule cyanocobalamin (vitamin B-12) 1,000 mcg PO DAILY 11/03/23 07/21/24 History 1,000 mcg capsule calcitriol 0.25 mcg capsule 0.25 mcg PO 4XW #48 caps 11/19/23 07/21/24 Rx midodrine 10 mg tablet 10 mg PO WITH DIALYSIS PRN 12/30/23 07/21/24 Rx hypotension with dialysis #12 tabs ferrous sulfate 325 mg (65 mg 650 mg (2 x 325 mg (65 mg iron)) 01/31/24 07/21/24 Rx iron) tablet (FeroSul) PO EVERY OTHER DAY #90 tabs atorvastatin 10 mg tablet 10 mg PO DAILY #90 tabs 02/23/24 07/21/24 Rx apixaban 2.5 mg tablet (Eliquis) 2.5 mg PO Q12HR #180 tabs 03/12/24 07/21/24 Rx allopurinol 100 mg tablet 100 mg PO DAILY #90 tabs 03/31/24 07/21/24 Rx bumetanide 1 mg tablet 1 mg PO BID #60 tabs 06/16/24 07/21/24 Rx benzonatate 100 mg capsule See Rx Instructions .Route 07/05/24 07/21/24 Rx .COMPLEX #60 caps albuterol sulfate 90 mcg/actuation 2 puff inhalation Q6H PRN 07/12/24 07/21/24 History aerosol inhaler sob/wheezing calcium acetate(phosphat bind) 667 1,334 mg PO TIDWM 07/12/24 07/21/24 History mg tablet gabapentin 300 mg capsule 300 mg PO HS 07/12/24 07/21/24 History liraglutide 0.6 mg/0.1 mL (18 mg/3 1.2 mg subcut DAILY 07/12/24 07/21/24 History mL) subcutaneous pen injector (Victoza 2-Vidal) acetaminophen 325 mg tablet 650 mg (2 x 325 mg) PO Q6H PRN 07/17/24 07/21/24 Rx Mild Pain (1-3) Or Fever #30 tabs hydrocodone 5 mg-acetaminophen 325 1 tablet PO Q8H PRN pain #10 tabs 07/17/24 07/21/24 Rx mg tablet fluticasone 250 mcg-salmeterol 50 1 inh inhalation Q12H 07/21/24 07/21/24 History mcg/dose blistr powdr for inhalation (Advair Diskus) fluticasone 250 mcg-salmeterol 50 1 inh inhalation Q12H 07/21/24 07/21/24 History mcg/dose blistr powdr for inhalation (Advair Diskus) Allergies Allergy/AdvReac Type Severity Reaction Status Date / Time No Known Allergies Allergy Verified 05/24/24 13:43 Vital Signs Vital Signs Temp Pulse Resp BP Pulse Ox O2 Del Method 07/21/24 12:30 86 128/92 H 07/21/24 12:15 75 141/88 H 07/21/24 12:00 77 07/21/24 11:59 78 144/86 H 07/21/24 10:36 99.1 F 76 18 122/81 07/21/24 09:56 87 20 141/77 H 97 07/21/24 07:55 81 07/21/24 07:54 81 14 142/92 H 98 07/21/24 05:46 Room Air 07/21/24 05:46 98.1 F 76 19 111/80 98 Room Air Exam 2 Narrative: GENERAL APPEARANCE: elderly male in no acute distress HEENT: normocephalic, atraumatic, normal conjunctiva and sclera, nares patient NECK: no lymphadenopathy, thyromegaly, or JVD MOUTH: normal lips, teeth, and gums CARDIOVASCULAR: RRR, normal S1 and S2, no rub detected RESPIRATORY: clear anteriorly; decreased at baseline ABDOMEN: soft, nontender, nondistended, positive bowel sounds present EXTREMITIES: no evidence of cyanosis, clubbing, 1+ edema NEUROLOGICAL: unable to assess (non-communicative/non-verbal) Results Lab Results 07/23/24 04:26 07/23/24 04:26 Lab results: Most recent lab results ABG pH 7.481 (7.350-7.450) H 07/21/24 06:02 ABG pCO2 31.2 mmHg (35.0-45.0) L 07/21/24 06:02 ABG pO2 68.7 mmHg (80.0-100.0) L 07/21/24 06:02 ABG HCO3 22.8 mEq/l (22.0-26.0) 07/21/24 06:02 ABG O2 Saturation 95.1 % (95.0-100.0) 07/21/24 06:02 Calcium 8.9 mg/dL (8.4-10.2) 07/21/24 06:00 Magnesium 2.2 mg/dL (1.6-2.3) 07/21/24 06:00
[2024-07-21 13:32] LABS: MRSA (PCR) NOT DETECTED (NOT DETECTE)
--- NOTE | 2024-07-21 16:41 | PC.NURSE ---
[id number] TRAFFIC POLICE OFFICER at bedside to see patient.
[2024-07-21 17:01] LABS: Glucose Point of Care 102 mg/dl (65-105)
[2024-07-21 17:02] LABS: Bilirubin Direct 1.1 mg/dL (0-0.3)
[2024-07-21 17:19] LABS: Alveolar/Arterial O2 Gradient 27.7 mmHg; Base Excess ABG 0.7 mEq/l (+/-2.0); Fractional Inspired Oxygen 21 %; HCO3 ABG 22.1 mEq/l (22.0-26.0); Oxygen Content ABG 18.6 %vol (16.0-22.0); Oxygen Saturation ABG 97.7 % (95.0-100.0); Oxyhemoglobin 95.4 % THb (90.0-100.0); PCO2 ABG 27.2 mmHg (35.0-45.0); PO2 ABG 89.5 mmHg (80.0-100.0); PO2 FiO2 Ratio Arterial Blood 4.26 %; Total Hemoglobin 13.8 g/dL (12.0-18.0)
[2024-07-21 17:21] LABS: Device ROOM AIR; Modified Allen's Test Pass; Site Drawn RIGHT BRACHIAL; pH ABG 7.528 (7.350-7.450)
--- NOTE | 2024-07-21 17:58 | PC.NURSE ---
This patient, Khalif Yanez, was transferred to IMU on 07/21/24 at 1758. Personal belongings sent with patient. Report given to Venus MORALES. Appropriate documentation sent with patient. Patient wemt to ct scan then 200
--- NOTE | 2024-07-21 20:30 | PCRCNOTE ---
RT unable to administer mdi due to patient not responding.
[2024-07-21] MEDS: LACTULOSE 20 GM/30 ML UDC PO (20:57)
[2024-07-21] MEDS: APIXABAN 2.5 MG TABLET PO (20:57)
[2024-07-22] VITALS (19 sets, daily range): BP systolic 105–119; BP diastolic 49–74; PULSE 62–82; RESP 16–20; TEMP 36.4–37.2; O2SAT 92–99; BMI 32.1
--- NOTE | 2024-07-22 | ECHO_ITS ---
Patient Info Name: Khalif Yanez Age: 84 years : 1940 Gender: Male Ht: 70 in Wt: 249 lbs BSA: 2.40 m2 HR: 79 bpm BP: 119 / 71 mmHg Technical Quality: Fair Exam Date: 07/22/2024 11:38 AM Exam Location: Echo Lab Patient Status: Inpatient Admit Date: 07/21/2024 Staff Ordering Physician: Mala Rolon APRN Squaring Machine Operator: Eduardo Sharp RDCS Attending Provider: Sanjay Schneider MD Referring Physician: Gonzales DACOSTA; Exam Type: CA echo doppler color flow Study Info Complete two-dimensional, color flow and Doppler transthoracic echocardiogram is performed. Summary 1. Complete two-dimensional, color flow and Doppler transthoracic echocardiogram is performed. 2. The left ventricle is normal in size with hyperdynamic systolic function. The left ventricular ejection fraction is visually estimated to be greater than 70%. 3. The right ventricle is severely dilated with reduced systolic function. 4. There is septal flattening during systole consistent with right ventricular pressure overload. 5. Dilated inferior vena cava with <50% collapse upon inspiration consistent with significantly elevated right atrial pressure, 15 mmHg. Left Ventricle The left ventricle is normal in size with hyperdynamic systolic function. The left ventricular ejection fraction is visually estimated to be greater than 70%. Right Ventricle The right ventricle is severely dilated with reduced systolic function. Ventricular Septum There is septal flattening during systole consistent with right ventricular pressure overload. Left Atria The left atrium is moderately dilated. Right Atria There is a small mobile echodensity in the right atrium that is possibly a eustachian valve. The right atrium is dilated. Atrial Septum The atrial septum is not well visualized. Recommend bubble study is indicated. Aortic Valve The aortic valve is trileaflet and thickened but opens well. There is no aortic regurgitation. Pulmonic Valve The pulmonic valve is grossly normal. There is mild pulmonic valve regurgitation. Mitral Valve The mitral valve leaflets are thickened. There is trace mitral regurgitation. Tricuspid Valve The tricuspid valve leaflets are thickened. There is at least moderate tricuspid regurgitation. Pericardium/Pleural There is no pericardial effusion in the available views. Inferior Vena Cava Dilated inferior vena cava with <50% collapse upon inspiration consistent with significantly elevated right atrial pressure, 15 mmHg. Aorta The aortic root at the level of the sinus of Valsalva measures 3.5 cm in diameter. Left Ventricular Outflow Tract Name Value Normal LVOT 2D LVOT Diameter 1.9 cm LVOT Doppler LVOT Peak Gradient 3 mmHg LVOT Mean Gradient 1 mmHg LVOT VTI 14 cm LVOT VTI/AV VTI Ratio 0.6 LVOT Stroke Volume 43 ml LVOT CO 3.3 l/min LVOT CI 1.4 l/min/m2 Pulmonic Valve Name Value Normal PV Doppler PV Peak Gradient 4 mmHg PV Regurgitation Doppler IN Peak End Diastolic Velocity 135 cm/s Mitral Valve Name Value Normal MV Doppler MV Decel [place] 562 cm/s2 MV PHT 47 ms MV Area (PHT) 4.6 cm2 4.0-5.0 MV Diastolic Function MV E Peak Velocity 92 cm/s MV A Peak Velocity 43 cm/s MV E/A 2.1 MV Decel Time 164 ms Tricuspid Valve Name Value Normal TV Regurgitation Doppler TR Peak Velocity 371 cm/s TR Peak Gradient 55 mmHg Estimated PAP/RSVP RA Pressure 15 mmHg <=5 PA Systolic Pressure 70 mmHg <36 RV Systolic Pressure 70 mmHg <36 Aorta Name Value Normal Ascending Aorta Ao Root Diameter (MM) 2.9 cm Ao Root Diam Index (MM) 1.2 cm/m2 Aortic Valve Name Value Normal AV Doppler AV Peak Velocity 144 cm/s AV Peak Gradient 8 mmHg AV Mean Gradient 4 mmHg AV VTI 22 cm AV Area (Cont Eq VTI) 1.9 cm2 >=3.0 AV Area (Cont Eq Suraj) 1.8 cm2 AV Regurgitation 2D LVOT Area 3.0 cm2 Ventricles Name Value Normal LV Dimensions 2D/MM IVS Diastolic Thickness (2D) 1.0 cm 0.6-1.0 IVS Diastole Thickness (MM) 1.0 cm 0.6-1.0 LVID Diastole (2D) 5.0 cm 4.2-5.8 LVID Diastole (MM) 5.0 cm 4.2-5.8 LVIW Diastolic Thickness (2D) 1.0 cm 0.6-1.0 LVIW Diastolic Thickness (MM) 1.0 cm 0.6-1.0 LVID Systole (2D) 2.6 cm 2.5-4.0 LVID Systole (MM) 3.0 cm 2.5-4.0 LVOT Diameter 1.9 cm LV Mass (2D Cubed) 192.42 g 88.00-224.00 LV Mass Index (2D Cubed) 80 g/m2 49-115 Relative Wall Thickness (2D) 0.41 LV Mass (MM Cubed) 188.53 g 88.00-224.00 LV Mass Index (MM Cubed) 78 g/m2 49-115 Relative Wall Thickness (MM) 0.41 LV Fractional Shortening/Ejection Fraction 2D/MM LV Fractional Shortening (2D) 48 % 25-43 LV Fractional Shortening (MM) 40 % 25-43 LV EF (MM Teicholz) 70 % 52-72 LV EF (2D Teicholz) 79 % 52-72 LV Diastolic Volume (4C MOD) 68 ml LV EF (4C MOD) 70 % LV Diastolic Volume (2C MOD) 61 ml LV EF (2C MOD) 69 % LV Diastolic Volume (BP MOD) 69 ml 62-150 LV Diastolic Volume Index (BP MOD) 29 ml/m2 34-74 LV Systolic Volume (BP MOD) 20 ml 21-61 LV Systolic Volume Index (BP MOD) 8 ml/m2 11-31 LV EF (BP MOD) 71 % 52-72 LV Diastolic Length (4C) 6.5 cm LV Systolic Length (4C) 5.4 cm LV Stroke Volume (4C MOD) 47 ml Atria Name Value Normal LA Dimensions LA Dimension (MM) 5.5 cm 3.0-4.1 LA Volume (4C A-L) 91 ml LA Volume (BP A-L) 110 ml RA Dimensions RA Area (4C) 25.7 cm2 <=18.0 Report Signatures
[2024-07-22 00:36] LABS: Glucose Point of Care 106 mg/dl (65-105)
[2024-07-22 05:01] LABS: Ammonia 39 umol/L (9-30)
[2024-07-22 05:03] LABS: Alanine Aminotransferase 12 U/L (6-50); Albumin Level 3.4 g/dL (3.5-5.1); Alkaline Phosphatase 81 U/L (38-126); Anion Gap 9 mmol/L (4-12); Aspartate Amino Transferase 41 U/L (17-59); Bilirubin,Total 3.6 mg/dL (0.2-1.3); Blood Urea Nitrogen 36 mg/dL (9-20); Calcium 8.2 mg/dL (8.4-10.2); Carbon Dioxide 22 mmol/L (22-30); Chloride 101 mmol/L (98-107); Estimated CRCL calculation 10 ml/min; Estimated Glomerular Filt Rate 11; Glucose 107 mg/dL (65-110); Potassium 5.3 mmol/L (3.4-5.0); Sodium 132 mmol/L (137-145)
[2024-07-22 05:29] LABS: Basophils Absolute Auto 0.1 K/mm3 (0.0-0.1); Basophils Percent Auto 0.7 % (0.2-1.2); Eosinophils Percent Auto 0.3 % (0-4.4); Hematocrit 39.8 % (42.0-52.0); Hemoglobin 13.1 g/dL (14.0-18.0); Immature Granulocyte Absolute 0.03 K/mm3 (0.00-0.031); Immature Granulocyte Percent A 0.4 % (0-0.5); Immature Platelet Fraction Pct 5.6 % (0.9-11.2); Mean Corpuscular HGB Conc 32.9 g/dl (32-36); Mean Corpuscular Hemoglobin 33.1 pg (26-34); Mean Corpuscular Volume 100.5 fl (80-100); Mean Platelet Volume 11.4 fl (7.4-10.4); Monocytes Absolute Auto 1.2 K/mm3 (0.1-0.6); Monocytes Percent Auto 17.4 % (2.6-8.5); Neutrophils Absolute Auto 4.7 K/mm3 (1.3-6.7); Neutrophils Percent Auto 68.2 % (45.5-73.1); Platelet Count Result 90 k/mm3 (150-375); Red Blood Count 3.96 M/mm3 (4.6-6.20); Red Cell Distribution Width 18.5 % (11.5-14.5); White Blood Count 6.9 K/mm3 (4.5-10.0)
[2024-07-22 06:01] LABS: Anisocytosis 1+; Ovalocytes 1+; Platelet Estimate Decreased (Adequate); Poikilocytosis 1+
[2024-07-22 06:02] LABS: Burr Cells 1+; Schistocytes None Seen
[2024-07-22] MEDS: CHOLECALCIFEROL 1,000 UNITS TABLET 2000 UNITS PO (08:43)
[2024-07-22] MEDS: CALCIUM ACETATE 667 MG TABLET 1334 MG PO (08:43)
[2024-07-22] MEDS: allopurinoL 100 MG TABLET PO (08:43)
[2024-07-22] MEDS: BUMETANIDE 1 MG TABLET PO ×2 (08:43→17:24)
[2024-07-22] MEDS: APIXABAN 2.5 MG TABLET PO ×2 (08:43→20:36)
[2024-07-22] MEDS: CYANOCOBALAMIN 1,000 MCG TABLET 1000 MCG PO (08:44)
[2024-07-22] MEDS: ATORVASTATIN 10 MG TABLET PO (08:44)
[2024-07-22] MEDS: LACTULOSE 20 GM/30 ML UDC PO ×3 (08:44→17:24)
--- NOTE | 2024-07-22 10:49 | PM.IMPN ---
Progress Note: A&P Assessment and Plan (1) Altered mental status: Qualifiers: Altered mental status type: disorientation Qualified Code(s): R41.0 - Disorientation, unspecified Code(s): R41.82 - Altered mental status, unspecified Status: Acute Assessment and Plan: Patient presents with AMS. He did not meet SIRS criteria but lactic 2.1 ->2.5. CT head showing no significant abnormalities. Can not obtain MRI brain but repeat CT brain showing no acute findings. CXR negative for PNA. Viral PCR negative. UA equivocal for UTI but UCx negative. BCx NGTD CT chest/abd/pelvis showing small right pleural effusion, 3cm indeterminate left renal mass, cholelithiasis, small amount of abdominopelvic ascites and umbilical hernia which contains a focal small bowel Ammonia 122. ABG 7.48/31 on RA. TSH, folate and B12 noral. Troponin flat with 0.028 -> 0.031 Suspect new alteration secondary to ammonia levels Check TSH, B12/Folate (2) Increased ammonia level: Code(s): R79.89 - Other specified abnormal findings of blood chemistry Status: Acute Assessment and Plan: Ammonia 122 Total bilirubin 3.3 but LFTs otherwise normal. DBili 0 so possible Gilbert's No history of cirrhosis or ETOH abuse US retroperitoneal duplex showing pulsatile antegrade flow in the portal veins 2nd to CHF. CT showing a small amount of abdominal and pelvic ascites but no abnormalities seen of the liver. Echo showing normal LV with hyperdynamic systolic fxn EF >70%, severely dilated RV with reduced systolic fxn, RV pressure overload significantly elevated RAP. Biatrial enlargement. There is a small mobile echodensity in the RA possibly an eustachian valve. NGT placed and started on lactulose t.i.d. Repeat ammonia better. Clinically patient is improving. Have speech therapy re-evaluate patient tomorrow. (3) Acute on chronic diastolic CHF (congestive heart failure): Code(s): I50.33 - Acute on chronic diastolic (congestive) heart failure Status: Acute Assessment and Plan: CXR showing central congestive change and probable mild bibasilar pulmonary edema, discoid left mid lung atelectasis. BNP > 30,000 Echo as above with right sided failure. Currently on Bumex at home which was continued. Fluid management with HD. Appreciate nephrology input (4) ESRD (end stage renal disease) on dialysis: Code(s): N18.6 - End stage renal disease; Z99.2 - Dependence on renal dialysis Status: Acute Assessment and Plan: Patient with ESRD. Nephrology consulted for inpatient dialysis; appreciate their input HD on MWF but may need extra HD given the above findings. Continue midodrine prn Trend electrolytes (5) Diabetes: Qualifiers: Chronic kidney disease stage: on chronic dialysis Diabetes mellitus complication detail: with chronic kidney disease Diabetes mellitus complication status: with kidney complications Diabetes mellitus long term care social worker insulin use: without long term care social worker use Diabetes mellitus type: type 2 Qualified Code(s): E11.22 - Type 2 diabetes mellitus with diabetic chronic kidney disease; N18.6 - End stage renal disease; Z99.2 - Dependence on renal dialysis Code(s): E11.9 - Type 2 diabetes mellitus without complications Status: Chronic Assessment and Plan: The patient's blood glucose was reviewed on 07/23 Glucose remains well controlled. Continue AccuCheks covering with sliding scale. Hypoglycemia protocol available as needed. Continue Tube feedings Plan Thrombocytopenia - chronic and stable. Diet: Not able to start oral feedings. Continue tube feedings. DVT Prophylaxis: SCDs Code Status: Full code Subjective Date/time seen: 07/22/24 10:49 Interval history: 84yo male with ESRD on HD, CHF, AFib, DM, pHTN and HTN here for alteed mental status. Patient feels much better. He is slow to respond but more oriented. Exam Narrative: AF 97.9 102/62 63 18 98% ra Gen - NARD HEENT - NGT secured Chest - bibasilar inspiratory crackles. Right upper chest tunneled HD catheter. CV - Irregular irregular; Tele showing AFib with controlled rate Abd - Soft, obese NT Ext - trace R>L pedal edema Neuro - awake, alert, slow to respond. oriented x3. Psych - cooperateive and follows commands Skin - Warm and dry Objective Data Vital Signs Vital Signs: Vital Signs - 24 hr 07/21/24 11:59 07/21/24 12:00 07/21/24 12:15 Temperature Pulse Rate 78 77 75 Respiratory Rate Blood Pressure 144/86 H 141/88 H Pulse Oximetry Oxygen Delivery 07/21/24 12:30 07/21/24 12:45 07/21/24 13:00 Temperature Pulse Rate 86 79 80 Respiratory Rate Blood Pressure 128/92 H 139/92 H 130/84 Pulse Oximetry Oxygen Delivery 07/21/24 13:15 07/21/24 13:30 07/21/24 13:45 Temperature Pulse Rate 90 77 86 Respiratory Rate Blood Pressure 122/81 133/78 124/74 Pulse Oximetry Oxygen Delivery 07/21/24 14:00 07/21/24 14:15 07/21/24 14:30 Temperature Pulse Rate 89 71 88 Respiratory Rate Blood Pressure 115/80 124/73 119/80 Pulse Oximetry Oxygen Delivery 07/21/24 14:45 07/21/24 15:00 07/21/24 15:15 Temperature Pulse Rate 91 85 80 Respiratory Rate Blood Pressure 128/75 118/80 121/77 Pulse Oximetry Oxygen Delivery 07/21/24 15:30 07/21/24 15:45 07/21/24 15:48 Temperature Pulse Rate 93 84 77 Respiratory Rate Blood Pressure 122/79 117/75 122/76 Pulse Oximetry Oxygen Delivery 07/21/24 15:58 07/21/24 16:00 07/21/24 16:43 Temperature 98.6 F Pulse Rate 87 84 Respiratory Rate 18 Blood Pressure 127/77 Pulse Oximetry 94 Oxygen Delivery Room Air 07/21/24 18:06 07/21/24 20:00 07/21/24 20:00 Temperature 98.7 F 97.6 F Pulse Rate 77 73 Respiratory Rate 15 16 Blood Pressure 120/69 117/69 Pulse Oximetry 98 99 Oxygen Delivery Room Air 07/21/24 20:00 07/21/24 22:00 07/22/24 00:00 Temperature Pulse Rate 79 75 Respiratory Rate Blood Pressure Pulse Oximetry Oxygen Delivery Room Air 07/22/24 00:00 07/22/24 00:34 07/22/24 02:00 Temperature 97.6 F Pulse Rate 73 76 71 Respiratory Rate 20 Blood Pressure 119/70 Pulse Oximetry 99 Oxygen Delivery 07/22/24 04:00 07/22/24 04:00 07/22/24 04:45 Temperature 98.2 F Pulse Rate 73 79 Respiratory Rate 20 Blood Pressure 119/71 Pulse Oximetry 95 Oxygen Delivery Room Air 07/22/24 06:00 07/22/24 07:40 07/22/24 08:00 Temperature 98 F Pulse Rate 68 72 73 Respiratory Rate 20 Blood Pressure 119/68 Pulse Oximetry 96 Oxygen Delivery 07/22/24 08:08 07/22/24 10:00 Temperature Pulse Rate 78 82 Respiratory Rate 18 Blood Pressure Pulse Oximetry 93 Oxygen Delivery Room Air Intake/Output Intake/Output: Intake & Output 07/19/24 07/20/24 07/21/24 07/22/24 23:59 23:59 23:59 23:59 Intake Total 50 50 Output Total 3000 0 Balance -2950 50 Meds/Results Medications: Active Medications Generic Name Dose Route Start Last Admin Trade Name Freq PRN Reason Stop Dose Admin Acetaminophen 650 mg 07/21/24 12:38 Acetaminophen 325 Mg Tablet PO Q6H PRN Mild Pain (1-3) Or Fever Albuterol 2 puff 07/21/24 12:38 Albuterol Sulfate (*Sp) Aerosol 1 Puff INHALATION Q6HRT PRN sob/wheezing Allopurinol 100 mg 07/21/24 12:50 07/22/24 08:43 Allopurinol 100 Mg Tablet PO 100 mg DAILY CESAR Administration Apixaban 2.5 mg 07/21/24 12:50 07/22/24 08:43 Apixaban 2.5 Mg Tablet PO 2.5 mg Q12HR CESAR Administration Atorvastatin Calcium 10 mg 07/21/24 12:50 07/22/24 08:44 Atorvastatin 10 Mg Tablet PO 10 mg DAILY CESAR Administration Benzonatate 0 mg 07/21/24 12:40 Benzonatate 100 Mg Capsule PO TID PRN Cough Bumetanide 1 mg 07/21/24 17:00 07/22/24 08:43 Bumetanide 1 Mg Tablet PO 1 mg BID CESAR Administration Calcitriol 0.25 mcg 07/21/24 13:00 07/21/24 16:52 Calcitriol 0.25 Mcg Capsule PO Not Given [id number] CESAR Calcium Acetate 1,334 mg 07/21/24 12:00 07/22/24 08:43 Calcium Acetate 667 Mg Tablet PO 1,334 mg TIDWM CESAR Administration Cyanocobalamin 1,000 mcg 07/21/24 12:50 07/22/24 08:44 Cyanocobalamin 1,000 Mcg Tablet PO 1,000 mcg DAILY CESAR Administration Dextrose 12.5 gm 07/21/24 08:12 Dextrose 50% 25 Gm/50 Ml Syringe IV PUSH PRN PRN Hypoglycemia Protocol Dextrose 12.5 gm 07/21/24 12:35 Dextrose 50% 25 Gm/50 Ml Syringe IV PUSH PRN PRN Hypoglycemia Protocol Ferrous Sulfate 650 mg 07/21/24 13:00 07/21/24 16:52 Ferrous Sulfate [address] PO Not Given Q48HR CESAR Glucagon 1 mg 07/21/24 12:35 Glucagon For Inj 1 Mg Vial IM PRN PRN Hypoglycemia Protocol Glucose 15 gm 07/21/24 12:35 Glucose Oral Gel 15 Gm Of Glucse In 37.5 Gm Tube PO PRN PRN Hypoglycemia Protocol Albumin Human 50 mls @ 999 mls/hr 07/21/24 08:43 Albutein IVPB 08/20/24 08:42 Q10M PRN HYPOTENSION Ceftriaxone Sodium 1 gm in 50 mls @ 100 mls/hr 07/21/24 12:35 07/22/24 09:30 Rocephin 1 Gm/Ns 50 Ml IVPB Infused QAM CESAR Infusion Dextrose 1,000 mls @ 100 mls/hr 07/21/24 12:35 Dextrose 5% 1,000 Ml IVPB PRN PRN Hypoglycemia Protocol Insulin Aspart 4 - 8 units 07/21/24 12:00 07/22/24 06:23 Insulin Aspart (*Bkc) 100 Units/Ml SUB-Q Not Given Q6HR CESAR Protocol Lactulose 20 gm 07/21/24 18:00 07/22/24 08:46 Lactulose 20 Gm/30 Ml Udc PO 20 gm TID CESAR Administration Midodrine 10 mg 07/21/24 12:43 Midodrine Hcl 10 Mg Tablet PO DAILY PRN Hypotension with dialysis Miscellaneous Information 0 each 07/21/24 00:01 07/22/24 00:18 Liraglutide [Victoza 2-Vidal] 0.6 Mg/0.1 Ml = Non Formulary XX 08/20/24 00:00 Not Given CLARIFY CESAR Non-Formulary Medication 1.2 mg 07/22/24 09:00 Liraglutide [Victoza 2-Vidal] SUB-Q 08/21/24 08:59 DAILY [facility] Ondansetron HCl 4 mg 07/21/24 08:12 Ondansetron Inj 4 Mg/2 Ml Vial IV PUSH Q4H PRN Nausea Perflutren Lipid Microsphere 0 ml 07/21/24 12:37 Perflutren Lipid Microspheres 1.5 Ml Vial Diluted To 10 Ml Total Volume IV PUSH 07/24/24 12:37 ONCE PRN adequate visualization Protocol Fluticasone/Salmeterol 2 puff 07/21/24 20:00 07/22/24 08:07 Fluticasone/Salmeterol 115-21 Mcg Inhaler 1 Puff INHALATION Not Given Q12HRT CESAR Vitamin D 2,000 units 07/21/24 12:50 07/22/24 08:43 Cholecalciferol 1,000 Units Tablet PO 2,000 units DAILY CESAR Administration Radiology Results: ITS Impressions Chest/Abdomen/Pelvis CT 07/21/24 07:04 Impression: Small right pleural effusion. 3 cm indeterminate left renal mass. Further evaluation with ultrasound or pre and postcontrast CT/MR advised. Cholelithiasis. Small amount of abdominopelvic ascites. Umbilical hernia which contains a focal small bowel. Chest X-Ray 07/21/24 07:12 Impression: Central congestive change and probable mild bibasilar pulmonary edema. Discoid left mid lung atelectasis. Stable support line. Head CT 07/21/24 17:53 IMPRESSION: 1. 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 Abdomen X-Ray 07/21/24 18:21 IMPRESSION: 1. Nasogastric tube tip in the stomach. Arterial/Peripheral Duplex 07/21/24 19:22 IMPRESSION: 1. Pulsatile antegrade flow in the portal veins, likely secondary to congestive heart failure. Labs Labs: Laboratory Results - last 24 hr 07/21/24 07/21/24 07/21/24 12:08 16:45 16:55 WBC RBC Hgb Hct MCV MCH MCHC RDW Plt Count MPV Immature Gran % (Auto) Neut % (Auto) Lymph % (Auto) [place] % (Auto) Eos % (Auto) Baso % (Auto) Lymph # (Auto) [place] # (Auto) Eos # (Auto) Baso # (Auto) Abs Immat Gran (auto) Absolute Neuts (auto) Absolute Nucleated RBC Nucleated RBC % Platelet Estimate % Immature Plt Fraction Poikilocytosis Anisocytosis Ovalocytes [place] Cells Schistocytes Puncture Site ABG pH ABG pCO2 ABG pO2 ABG PO2/FiO2 Ratio ABG HCO3 ABG O2 Saturation ABG O2 Content ABG Base Excess A-a Gradient Oxyhemoglobin Total Hemoglobin O2 Delivery Device O2 Liters/Min FiO2 Sodium Potassium Chloride Carbon Dioxide Anion Gap BUN Creatinine Estim Creat Clear Calc Estimated GFR Glucose POC Capillary Glucose 102 Calcium Total Bilirubin Direct Bilirubin 1.1 H AST ALT Alkaline Phosphatase Ammonia Total Protein Albumin Nasal MRSA (PCR) Not detected 07/21/24 07/22/24 07/22/24 17:10 00:32 04:15 WBC RBC Hgb Hct MCV MCH MCHC RDW Plt Count MPV Immature Gran % (Auto) Neut % (Auto) Lymph % (Auto) [place] % (Auto) Eos % (Auto) Baso % (Auto) Lymph # (Auto) [place] # (Auto) Eos # (Auto) Baso # (Auto) Abs Immat Gran (auto) Absolute Neuts (auto) Absolute Nucleated RBC Nucleated RBC % Platelet Estimate % Immature Plt Fraction Poikilocytosis Anisocytosis Ovalocytes [place] Cells Schistocytes Puncture Site Right brachial ABG pH 7.528 H* ABG pCO2 27.2 L ABG pO2 89.5 ABG PO2/FiO2 Ratio 4.26 ABG HCO3 22.1 ABG O2 Saturation 97.7 ABG O2 Content 18.6 ABG Base Excess 0.7 A-a Gradient 27.7 Oxyhemoglobin 95.4 Total Hemoglobin 13.8 O2 Delivery Device Room air O2 Liters/Min Not Reportable FiO2 21 Sodium Potassium Chloride Carbon Dioxide Anion Gap BUN Creatinine Estim Creat Clear Calc Estimated GFR Glucose POC Capillary Glucose 106 H Calcium Total Bilirubin Direct Bilirubin AST ALT Alkaline Phosphatase Ammonia 39 H Total Protein Albumin Nasal MRSA (PCR) 07/22/24 07/22/24 04:20 05:00 WBC 6.9 RBC 3.96 L Hgb 13.1 L Hct 39.8 L MCV 100.5 H MCH 33.1 MCHC 32.9 RDW 18.5 H Plt Count 90 L MPV 11.4 H Immature Gran % (Auto) 0.4 Neut % (Auto) 68.2 Lymph % (Auto) 13.0 L Mcpherson % (Auto) 17.4 H Eos % (Auto) 0.3 Baso % (Auto) 0.7 Lymph # (Auto) 0.90 [place]pherson # (Auto) 1.2 H Eos # (Auto) 0.0 Baso # (Auto) 0.1 Abs Immat Gran (auto) 0.03 Absolute Neuts (auto) 4.7 Absolute Nucleated RBC 0.000 Nucleated RBC % 0.0 Platelet Estimate Decreased % Immature Plt Fraction 5.6 Poikilocytosis 1+ Anisocytosis 1+ Ovalocytes 1+ [place] Cells 1+ Schistocytes None seen Puncture Site ABG pH ABG pCO2 ABG pO2 ABG PO2/FiO2 Ratio ABG HCO3 ABG O2 Saturation ABG O2 Content ABG Base Excess A-a Gradient Oxyhemoglobin Total Hemoglobin O2 Delivery Device O2 Liters/Min FiO2 Sodium 132 L Potassium 5.3 H Chloride 101 Carbon Dioxide 22 Anion Gap 9 BUN 36 H D Creatinine 6.10 H Estim Creat Clear Calc 10 Estimated GFR 11 L Glucose 107 POC Capillary Glucose Calcium 8.2 L Total Bilirubin 3.6 H Direct Bilirubin AST 41 ALT 12 Alkaline Phosphatase 81 Ammonia Total Protein 7.0 Albumin 3.4 L Nasal MRSA (PCR)
[2024-07-22 12:36] LABS: Glucose Point of Care 115 mg/dl (65-105)
--- NOTE | 2024-07-22 12:42 | PM.PNNEP ---
Progress Note: A&P Assessment and Plan (1) End-stage renal disease (ESRD): Code(s): N18.6 - End stage renal disease Status: Chronic Assessment and Plan: HD tomorrow continue Fri/Fri/Friday dialysis schedule while hospitalized follow electrolytes, volume status, and clearance (2) Hyperkalemia: Code(s): E87.5 - Hyperkalemia Status: Acute Assessment and Plan: corrected/resolved with dialysis as noted on admission labs follow trend (3) Altered mental status: Qualifiers: Altered mental status type: disorientation Qualified Code(s): R41.0 - Disorientation, unspecified Code(s): R41.82 - Altered mental status, unspecified Status: Acute Assessment and Plan: slow improvement noted as noted on presentation no evidence of infection/sepsis... however, mild lactic acidosis noted imaging reviewed: CT head: No significant abnormality seen. CXR negative for PNA. viral PCR negative. 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, unspecified Status: Chronic Assessment and Plan: chronic issue at baseline on midodrine therapy follow trend of hemodynamics (5) Anemia: Qualifiers: Anemia type: unspecified type Qualified Code(s): D64.9 - Anemia, unspecified Code(s): D64.9 - Anemia, unspecified Status: Chronic Assessment and Plan: due to ESRD hold Retacrit since Hgb > 10 follow trend of H/H (6) Diabetes: Qualifiers: Diabetes mellitus type: type 2 Diabetes mellitus group home insulin use: without group home use Diabetes mellitus complication status: with kidney complications Diabetes mellitus complication detail: with chronic kidney disease Chronic kidney disease stage: on chronic dialysis Qualified Code(s): E11.22 - Type 2 diabetes mellitus with diabetic chronic kidney disease; N18.6 - End stage renal disease; Z99.2 - Dependence on renal dialysis Code(s): E11.9 - Type 2 diabetes mellitus without complications Status: Chronic Assessment and Plan: follow accu-cheks glycemic control per hospitalists Will continue to follow. Subjective Date/time seen: 07/22/24 12:42 Interval history: Follow-up for end stage renal disease on hemodialysis. Tolerated dialysis treatment yesterday without any issue or problems; mentation better today but not back to baseline -- answers some questions and is more responsive but remains confused; NG tube in place; at bedside and we discussed the situation. Exam Narrative: General: elderly male in NAD Heart: IRRR, normal S1 and S2; no rub Lungs: clear to auscultation Abdomen: soft, nontender, nondistended, positive bowel sounds Extremities: no cyanosis or clubbing; 1+ edema Skin: warm and dry Objective Data Vital Signs Vital Signs: Vital Signs Temp Pulse Resp BP Pulse Ox O2 Del Method 07/22/24 12:00 99 F 70 20 112/74 94 07/22/24 10:00 82 07/22/24 08:08 78 18 93 Room Air 07/22/24 08:00 73 07/22/24 07:40 98 F 72 20 119/68 96 07/22/24 06:00 68 07/22/24 04:45 98.2 F 79 20 119/71 95 07/22/24 04:00 73 07/22/24 04:00 Room Air 07/22/24 02:00 71 07/22/24 00:34 97.6 F 76 20 119/70 99 07/22/24 00:00 73 07/22/24 00:00 Room Air 07/21/24 22:00 75 07/21/24 20:00 79 07/21/24 20:00 Room Air 07/21/24 20:00 97.6 F 73 16 117/69 99 07/21/24 18:06 98.7 F 77 15 120/69 98 Intake/Output Intake/Output: Intake & Output 07/19/24 07/20/24 07/21/24 07/22/24 23:59 23:59 23:59 23:59 Intake Total 50 50 Output Total 3000 0 Balance -2950 50 Meds/Results Medications: Active Medications Generic Name Dose Route Start Last Admin Trade Name Freq PRN Reason Stop Dose Admin Acetaminophen 650 mg 07/21/24 12:38 Acetaminophen 325 Mg Tablet PO Q6H PRN Mild Pain (1-3) Or Fever Albuterol 2 puff 07/21/24 12:38 Albuterol Sulfate (*Sp) Aerosol 1 Puff INHALATION Q6HRT PRN sob/wheezing Allopurinol 100 mg 07/21/24 12:50 07/22/24 08:43 Allopurinol 100 Mg Tablet PO 100 mg DAILY CESAR Administration Apixaban 2.5 mg 07/21/24 12:50 07/22/24 08:43 Apixaban 2.5 Mg Tablet PO 2.5 mg Q12HR CESAR Administration Atorvastatin Calcium 10 mg 07/21/24 12:50 07/22/24 08:44 Atorvastatin 10 Mg Tablet PO 10 mg DAILY CESAR Administration Benzonatate 0 mg 07/21/24 12:40 Benzonatate 100 Mg Capsule PO TID PRN Cough Bumetanide 1 mg 07/21/24 17:00 07/22/24 17:24 Bumetanide 1 Mg Tablet PO 1 mg BID CESAR Administration Calcitriol 0.25 mcg 07/21/24 13:00 07/21/24 16:52 Calcitriol 0.25 Mcg Capsule PO Not Given [id number] CESAR Calcium Acetate 1,334 mg 07/21/24 12:00 07/22/24 16:45 Calcium Acetate 667 Mg Tablet PO Not Given TIDWM CESAR Cyanocobalamin 1,000 mcg 07/21/24 12:50 07/22/24 08:44 Cyanocobalamin 1,000 Mcg Tablet PO 1,000 mcg DAILY CESAR Administration Dextrose 12.5 gm 07/21/24 08:12 Dextrose 50% 25 Gm/50 Ml Syringe IV PUSH PRN PRN Hypoglycemia Protocol Dextrose 12.5 gm 07/21/24 12:35 Dextrose 50% 25 Gm/50 Ml Syringe IV PUSH PRN PRN Hypoglycemia Protocol Ferrous Sulfate 650 mg 07/21/24 13:00 07/21/24 16:52 Ferrous Sulfate [address] PO Not Given Q48HR CESAR Glucagon 1 mg 07/21/24 12:35 Glucagon For Inj 1 Mg Vial IM PRN PRN Hypoglycemia Protocol Glucose 15 gm 07/21/24 12:35 Glucose Oral Gel 15 Gm Of Glucse In 37.5 Gm Tube PO PRN PRN Hypoglycemia Protocol Albumin Human 50 mls @ 999 mls/hr 07/21/24 08:43 Albutein IVPB 08/20/24 08:42 Q10M PRN HYPOTENSION Dextrose 1,000 mls @ 100 mls/hr 07/21/24 12:35 Dextrose 5% 1,000 Ml IVPB PRN PRN Hypoglycemia Protocol Insulin Aspart 4 - 8 units 07/21/24 12:00 07/22/24 16:46 Insulin Aspart (*Bkc) 100 Units/Ml SUB-Q Not Given Q6HR CESAR Protocol Lactulose 20 gm 07/21/24 18:00 07/22/24 17:24 Lactulose 20 Gm/30 Ml Udc PO 20 gm TID CESAR Administration Midodrine 10 mg 07/21/24 12:43 Midodrine Hcl 10 Mg Tablet PO DAILY PRN Hypotension with dialysis Miscellaneous Information 0 each 07/21/24 00:01 07/22/24 00:18 Liraglutide [Victoza 2-Vidal] 0.6 Mg/0.1 Ml = Non Formulary XX 08/20/24 00:00 Not Given CLARIFY CESAR Non-Formulary Medication 1.2 mg 07/22/24 09:00 Liraglutide [Victoza 2-Vidal] SUB-Q 08/21/24 08:59 DAILY [facility] Ondansetron HCl 4 mg 07/21/24 08:12 Ondansetron Inj 4 Mg/2 Ml Vial IV PUSH Q4H PRN Nausea Perflutren Lipid Microsphere 0 ml 07/21/24 12:37 Perflutren Lipid Microspheres 1.5 Ml Vial Diluted To 10 Ml Total Volume IV PUSH 07/24/24 12:37 ONCE PRN adequate visualization Protocol Fluticasone/Salmeterol 2 puff 07/21/24 20:00 07/22/24 08:07 Fluticasone/Salmeterol 115-21 Mcg Inhaler 1 Puff INHALATION Not Given Q12HRT [facility] Vitamin D 2,000 units 07/21/24 12:50 07/22/24 08:43 Cholecalciferol 1,000 Units Tablet PO 2,000 units DAILY CESAR Administration Radiology Results: ITS Impressions Chest/Abdomen/Pelvis CT 07/21/24 07:04 Impression: Small right pleural effusion. 3 cm indeterminate left renal mass. Further evaluation with ultrasound or pre and postcontrast CT/MR advised. Cholelithiasis. Small amount of abdominopelvic ascites. Umbilical hernia which contains a focal small bowel. Chest X-Ray 07/21/24 07:12 Impression: Central congestive change and probable mild bibasilar pulmonary edema. Discoid left mid lung atelectasis. Stable support line. Head CT 07/21/24 17:53 IMPRESSION: 1. 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 Abdomen X-Ray 07/21/24 18:21 IMPRESSION: 1. Nasogastric tube tip in the stomach. Arterial/Peripheral Duplex 07/21/24 19:22 IMPRESSION: 1. Pulsatile antegrade flow in the portal veins, likely secondary to congestive heart failure. Labs Labs: Laboratory Tests 07/22/24 05:00 07/22/24 04:20 Calcium 8.2 L Total Bilirubin 3.6 H AST 41 ALT 12 Alkaline Phosphatase 81 Total Protein 7.0 Albumin 3.4 L Microbiology 07/21/24 16:44 Blood Blood Culture - Preliminary 07/21/24 16:44 Blood Blood Culture - Preliminary 07/21/24 06:08 Unspecified Urine Culture - Final 07/21/24 07:04 Blood Blood Culture - Preliminary 07/21/24 07:04 Blood Blood Culture - Preliminary
--- NOTE | 2024-07-22 14:04 | PCDIET ---
Nutrition consult for tube feedings. Pt came in yesterday with AMS, is more alert today and responding to questions during assessment. Most of information obtained is via and son at bedside. Per H&P, pt is 60% better today. Pt was on a PO diet in group home. NGT placed at this time. Consult to start tube feedings per Dr Schneider. Informed nursing of this consult as they were not aware. Tube feeding recommendations per consult request. Nepro @ a goal rate of 50ml/hr over 22hrs (ASPEN guidelines) to provide 1980kcals, 89g protein, 799ml free water. Recommend an additional water flush of 150ml q 4 hrs for a total of 1699ml free water over 24hrs. Initiate tube feedings at 20ml/hr and advance by 10ml q 4 hrs to goal rate.
--- NOTE | 2024-07-22 16:24 | PCSTNOTE ---
Please refer to the Bedside Swallow Evaluation in the EMR. Please note, silent aspiration cannot be ruled out at bedside.
[2024-07-22 16:29] LABS: Glucose Point of Care 102 mg/dl (65-105)
[2024-07-22 18:15] LABS: Glucose Point of Care 114 mg/dl (65-105)
[2024-07-22] MEDS: FLUTICASONE/SALMETEROL 115-21 MCG INHALER 1 PUFF 2 PUFF INHALATION (20:24)
[2024-07-22 23:46] LABS: Glucose Point of Care 127 mg/dl (65-105)
[2024-07-23] VITALS (31 sets, daily range): BP systolic 98–134; BP diastolic 51–83; PULSE 52–77; RESP 17–20; TEMP 36.2–37.1; O2SAT 92–98
[2024-07-23 05:31] LABS: Basophils Absolute Auto 0.1 K/mm3 (0.0-0.1); Basophils Percent Auto 0.8 % (0.2-1.2); Eosinophils Percent Auto 0.5 % (0-4.4); Hematocrit 40.1 % (42.0-52.0); Hemoglobin 12.8 g/dL (14.0-18.0); Immature Granulocyte Absolute 0.02 K/mm3 (0.00-0.031); Immature Granulocyte Percent A 0.3 % (0-0.5); Immature Platelet Fraction Pct 4.9 % (0.9-11.2); Lymphocytes Absolute Auto 0.89 K/mm3 (0.9-3.2); Lymphocytes Percent Auto 14.8 % (18.3-44.2); Mean Corpuscular HGB Conc 31.9 g/dl (32-36); Mean Corpuscular Hemoglobin 32.4 pg (26-34); Mean Corpuscular Volume 101.5 fl (80-100); Mean Platelet Volume 11.9 fl (7.4-10.4); Monocytes Absolute Auto 1.1 K/mm3 (0.1-0.6); Monocytes Percent Auto 18.5 % (2.6-8.5); Neutrophils Absolute Auto 3.9 K/mm3 (1.3-6.7); Neutrophils Percent Auto 65.1 % (45.5-73.1); Platelet Count Result 85 k/mm3 (150-375); Red Blood Count 3.95 M/mm3 (4.6-6.20); Red Cell Distribution Width 18.3 % (11.5-14.5)
[2024-07-23 05:53] LABS: Glucose Point of Care 143 mg/dl (65-105)
[2024-07-23 06:45] LABS: Platelet Estimate Decreased (Adequate)
[2024-07-23 06:46] LABS: Alanine Aminotransferase 12 U/L (6-50); Albumin Level 3.5 g/dL (3.5-5.1); Alkaline Phosphatase 87 U/L (38-126); Anion Gap 11 mmol/L (4-12); Anisocytosis 1+; Aspartate Amino Transferase 26 U/L (17-59); Bilirubin,Total 2.6 mg/dL (0.2-1.3); Blood Urea Nitrogen 51 mg/dL (9-20); Burr Cells 1+; Calcium 8.7 mg/dL (8.4-10.2); Carbon Dioxide 27 mmol/L (22-30); Chloride 99 mmol/L (98-107); Estimated CRCL calculation 8 ml/min; Estimated Glomerular Filt Rate 8; Glucose 144 mg/dL (65-110); Magnesium 2.3 mg/dL (1.6-2.3); Ovalocytes 1+; Phosphorus 5.5 mg/dL (2.5-4.5); Potassium 4.6 mmol/L (3.4-5.0); Schistocytes None Seen; Sodium 137 mmol/L (137-145); Tear Drop Cells 1+
[2024-07-23 06:52] LABS: Folic Acid 15.8 ng/mL (2.76->20); Vitamin B12 > 1000.0 pg/mL (239-931)
[2024-07-23] MEDS: FLUTICASONE/SALMETEROL 115-21 MCG INHALER 1 PUFF 2 PUFF INHALATION ×2 (07:38→20:23)
[2024-07-23] MEDS: ATORVASTATIN 10 MG TABLET PO (08:17)
[2024-07-23] MEDS: APIXABAN 2.5 MG TABLET PO ×2 (08:17→22:13)
[2024-07-23] MEDS: MIDODRINE HCL 10 MG TABLET PO (08:17)
[2024-07-23] MEDS: CHOLECALCIFEROL 1,000 UNITS TABLET 2000 UNITS PO (08:17)
[2024-07-23] MEDS: FERROUS SULFATE 325 MG TABLET DR 650 MG PO (08:17)
[2024-07-23] MEDS: CALCIUM ACETATE 667 MG TABLET 1334 MG PO ×2 (08:17→13:22)
[2024-07-23] MEDS: allopurinoL 100 MG TABLET PO (08:17)
[2024-07-23] MEDS: CYANOCOBALAMIN 1,000 MCG TABLET 1000 MCG PO (08:18)
--- NOTE | 2024-07-23 09:10 | PCNFU ---
Nutrition Follow-Up Complete: Inadequate energy intake related to NPO status as evidenced by current diet orders, need for tube feeding Meet estimated needs - Progressing. Tube feeding running at 40 ml/h, goal of 50 ml/h Advance diet via PO when able to - MBSS today or tomorrow depending on mental status Goal: Pt current nutrition is Nepro @ 40 ml/h, goal rate 50 ml/h. Flushes 30 ml q 4 hours. Nutrition recommendation: Continue to advance tube feeding to goal rate 50 ml/h and oral feedings when pt is able to swallow. Last recorded weight is 102.4 kg. Bowel Motility: +1 BM 07/23/24 Labs Reviewed: Hgb 07/11. Hct 40.1, GFR 8, BUN 51, Cre 7.9, Glu 144 Meds Noted: Insulin, Eliquis, Bumex, lactulose Skin: No skin issues noted Additional Notes: Discussed flushes with Dr Schneider; pt is fluid overloaded so flushes @ 30 ml q 4 hours for now. Pt to reach goal of 50 ml/h today. Nepro @ goal rate 50 ml/h provides 1980 kcal (100% EER), 89 g protein (100% estimated needs), 799 ml free water. Flushes 30 ml q 4 hours. Monitor tube feeding start, tolerance, wt, labs. Follow up every Friday and Friday.
--- NOTE | 2024-07-23 09:20 | P.PNNP_ITS ---
Progress Note: A&P Assessment and Plan (1) End-stage renal disease (ESRD): Code(s): N18.6 - End stage renal disease Status: Chronic Assessment and Plan: * HD today * continue Fri/Fri/Friday dialysis schedule while hospitalized * follow electrolytes, volume status, and clearance (2) Hyperkalemia: Code(s): E87.5 - Hyperkalemia Status: Resolved Assessment and Plan: * corrected/resolved with dialysis * as noted on admission labs * follow trend (3) Altered mental status: Qualifiers: Altered mental status type: disorientation Qualified Code(s): R41.0 - Disorientation, unspecified Code(s): R41.82 - Altered mental status, unspecified Status: Acute Assessment and Plan: * slow/ongoing improvement noted * as noted on presentation * no evidence of infection/sepsis... * however, mild lactic acidosis noted * imaging reviewed: * CT head: No significant abnormality seen. * CXR negative for PNA. viral PCR negative. * CT chest/abd/pelvis: small right pleural effusion, 3 cm indeterminate left renal mass, cholelithiasis, small amount of abdominopelvic ascites, umbilical hernia which contains a focal small bowel * questionable UTI by UA * elevated ammonia level noted * initiated on lactulose via NG tube * holding potential sedative medications (gabapentin and norco) * follow trend of mental status (4) Hypotension: Code(s): I95.9 - Hypotension, unspecified Status: Chronic Assessment and Plan: * chronic issue at baseline * on midodrine therapy * follow trend of hemodynamics (5) Anemia: Qualifiers: Anemia type: unspecified type Qualified Code(s): D64.9 - Anemia, unspecified Code(s): D64.9 - Anemia, unspecified Status: Chronic Assessment and Plan: * due to ESRD * hold Retacrit since Hgb > 10 * follow trend of H/H (6) Diabetes: Qualifiers: Diabetes mellitus type: type 2 Diabetes mellitus long term care administrator insulin use: without jail use Diabetes mellitus complication status: with kidney complications Diabetes mellitus complication detail: with chronic kidney disease Chronic kidney disease stage: on chronic dialysis Qualified Code(s): E 11.22 - Type 2 diabetes mellitus with diabetic chronic kidney disease; N18.6 - End stage renal disease; Z99.2 - Dependence on renal dialysis Code(s): E11.9 - Type 2 diabetes mellitus without complications Status: Chronic Assessment and Plan: * follow accu-cheks * glycemic control per hospitalists Will continue to follow. Subjective Date/time seen: 07/23/24 09:20 Interval history: Follow-up for end stage renal disease on hemodialysis. Tolerating dialysis treatment at the time of my visit (seen on HD at 9:10AM); mentation seems to be doing significantly better today (he recognized me and was conversive with me); no apparent distress noted; no other issues/events overnight or earlier this morning. Exam 2 Narrative: General: elderly male in NAD Heart: IRRR, normal S1 and S2; no rub Lungs: clear anteriorly; decreased at bases Abdomen: soft, nontender, nondistended, positive bowel sounds Extremities: no cyanosis or clubbing; 1+ edema Skin: warm and intact Objective Data Vital Signs Vital Signs: Vital Signs Temp Pulse Resp BP Pulse Ox O2 Del Method 07/23/24 09:15 59 L 120/65 07/23/24 09:00 64 131/70 07/23/24 08:45 61 128/67 07/23/24 08:41 65 128/70 07/23/24 08:35 98.1 F 68 18 122/72 07/23/24 07:40 94 Room Air 07/23/24 07:30 97.1 F L 63 18 98/51 L 96 07/23/24 06:00 67 07/23/24 04:00 98.6 F 72 20 115/65 95 07/23/24 04:00 71 07/23/24 04:00 77 17 92 Room Air 07/23/24 02:00 75 07/23/24 00:00 68 07/23/24 00:00 77 17 92 Room Air 07/22/24 23:46 98.8 F 72 16 105/49 L 96 07/22/24 22:00 75 07/22/24 20:33 77 92 Room Air 07/22/24 20:30 72 17 07/22/24 20:00 76 07/22/24 20:00 77 17 92 Room Air 07/22/24 20:00 98.7 F 71 16 107/50 L 94 07/22/24 18:00 74 07/22/24 16:00 62 07/22/24 16:00 98.9 F 74 16 116/72 95 07/22/24 14:30 Room Air 07/22/24 14:00 72 07/22/24 12:00 69 07/22/24 12:00 99 F 70 20 112/74 94 Intake/Output Intake/Output: Intake & Output 07/20/24 07/21/24 07/22/24 07/23/24 23:59 23:59 23:59 23:59 Intake Total 50 50 0 Output Total 3000 0 Balance -2950 50 0 Meds/Results Medications: Active Medications Generic Name Dose Route Start Last Admin Trade Name Freq PRN Reason Stop Dose Admin Acetaminophen 650 mg 07/21/24 12:38 Acetaminophen 325 Mg Tablet PO Q6H PRN Mild Pain (1-3) Or Fever Albuterol 2 puff 07/21/24 12:38 Albuterol Sulfate (*Sp) Aerosol 1 Puff INHALATION Q6HRT PRN sob/wheezing Allopurinol 100 mg 07/21/24 12:50 07/23/24 08:17 Allopurinol 100 Mg Tablet PO 100 mg DAILY CESAR Administration Apixaban 2.5 mg 07/21/24 12:50 07/23/24 08:17 Apixaban 2.5 Mg Tablet PO 2.5 mg Q12HR CESAR Administration Atorvastatin Calcium 10 mg 07/21/24 12:50 07/23/24 08:17 Atorvastatin 10 Mg Tablet PO 10 mg DAILY CESAR Administration Benzonatate 0 mg 07/21/24 12:40 Benzonatate 100 Mg Capsule PO TID PRN Cough Bumetanide 1 mg 07/21/24 17:00 07/22/24 17:24 Bumetanide 1 Mg Tablet PO 1 mg BID CESAR Administration Calcitriol 0.25 mcg 07/21/24 13:00 07/21/24 16:52 Calcitriol 0.25 Mcg Capsule PO Not Given [id number] CESAR Calcium Acetate 1,334 mg 07/21/24 12:00 07/23/24 08:17 Calcium Acetate 667 Mg Tablet PO 1,334 mg TIDWM CESAR Administration Cyanocobalamin 1,000 mcg 07/21/24 12:50 07/23/24 08:18 Cyanocobalamin 1,000 Mcg Tablet PO 1,000 mcg DAILY CESAR Administration Dextrose 12.5 gm 07/21/24 08:12 Dextrose 50% 25 Gm/50 Ml Syringe IV PUSH PRN PRN Hypoglycemia Protocol Dextrose 12.5 gm 07/21/24 12:35 Dextrose 50% 25 Gm/50 Ml Syringe IV PUSH PRN PRN Hypoglycemia Protocol Ferrous Sulfate 650 mg 07/21/24 13:00 07/23/24 08:17 Ferrous Sulfate [address] PO 650 mg Q48HR CESAR Administration Glucagon 1 mg 07/21/24 12:35 Glucagon For Inj 1 Mg Vial IM PRN PRN Hypoglycemia Protocol Glucose 15 gm 07/21/24 12:35 Glucose Oral Gel 15 Gm Of Glucse In 37.5 Gm Tube PO PRN PRN Hypoglycemia Protocol Albumin Human 50 mls @ 999 mls/hr 07/21/24 08:43 Albutein IVPB 08/20/24 08:42 Q10M PRN HYPOTENSION Dextrose 1,000 mls @ 100 mls/hr 07/21/24 12:35 Dextrose 5% 1,000 Ml IVPB PRN PRN Hypoglycemia Protocol Insulin Aspart 4 - 8 units 07/21/24 12:00 07/23/24 00:56 Insulin Aspart (*Bkc) 100 Units/Ml SUB-Q Not Given Q6HR CESAR Protocol Lactulose 20 gm 07/21/24 18:00 07/22/24 17:24 Lactulose 20 Gm/30 Ml Udc PO 20 gm TID CESAR Administration Midodrine 10 mg 07/21/24 12:43 07/23/24 08:17 Midodrine Hcl 10 Mg Tablet PO 10 mg DAILY PRN Administration Hypotension with dialysis Miscellaneous Information 0 each 07/21/24 00:01 07/22/24 00:18 Liraglutide [Victoza 2-Vidal] 0.6 Mg/0.1 Ml = Non Formulary XX 08/20/24 00:00 Not Given CLARIFY CESAR Non-Formulary Medication 1.2 mg 07/22/24 09:00 Liraglutide [Victoza 2-Vidal] SUB-Q 08/21/24 08:59 DAILY [facility] Ondansetron HCl 4 mg 07/21/24 08:12 Ondansetron Inj 4 Mg/2 Ml Vial IV PUSH Q4H PRN Nausea Perflutren Lipid Microsphere 0 ml 07/21/24 12:37 Perflutren Lipid Microspheres 1.5 Ml Vial Diluted To 10 Ml Total Volume IV PUSH 07/24/24 12:37 ONCE PRN adequate visualization Protocol Fluticasone/Salmeterol 2 puff 07/21/24 20:00 07/23/24 07:38 Fluticasone/Salmeterol 115-21 Mcg Inhaler 1 Puff INHALATION 2 puff Q12HRT CESAR Administration Vitamin D 2,000 units 07/21/24 12:50 07/23/24 08:17 Cholecalciferol 1,000 Units Tablet PO 2,000 units DAILY CESAR Administration Radiology Results: ITS Impressions Chest/Abdomen/Pelvis CT 07/21/24 07:04 Impression: Small right pleural effusion. 3 cm indeterminate left renal mass. Further evaluation with ultrasound or pre and postcontrast CT/MR advised. Cholelithiasis. Small amount of abdominopelvic ascites. Umbilical hernia which contains a focal small bowel. Chest X-Ray 07/21/24 07:12 Impression: Central congestive change and probable mild bibasilar pulmonary edema. Discoid left mid lung atelectasis. Stable support line. Head CT 07/21/24 17:53 IMPRESSION: 1. 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 Abdomen X-Ray 07/21/24 18:21 IMPRESSION: 1. Nasogastric tube tip in the stomach. Arterial/Peripheral Duplex 07/21/24 19:22 IMPRESSION: 1. Pulsatile antegrade flow in the portal veins, likely secondary to congestive heart failure. Labs Labs: Laboratory Tests 07/23/24 04:26 07/23/24 04:26 Calcium 8.7 Phosphorus 5.5 H Magnesium 2.3 Total Bilirubin 2.6 H AST 26 ALT 12 Alkaline Phosphatase 87 Total Protein 7.0 Albumin 3.5 Vitamin B12 > 1000.0 H Folate 15.8 TSH (Reflex) 1.110 Microbiology 07/21/24 16:44 Blood Blood Culture - Preliminary 07/21/24 16:44 Blood Blood Culture - Preliminary 07/21/24 06:08 Unspecified Urine Culture - Final
[2024-07-23] MEDS: BUMETANIDE 1 MG TABLET PO ×2 (13:22→17:41)
[2024-07-23] MEDS: LACTULOSE 20 GM/30 ML UDC PO ×2 (13:24→17:41)
[2024-07-23 13:28] LABS: Glucose Point of Care 130 mg/dl (65-105)
[2024-07-23 17:52] LABS: Glucose Point of Care 185 mg/dl (65-105)
--- NOTE | 2024-07-23 20:51 | PC.NURSE ---
This patient, Khalif Yanez, was transferred to [[id number] ] on 07/23/24 at 2038. Personal belongings sent with patient. Report given to [Srinath ]. Appropriate documentation sent with patient.
[2024-07-24] VITALS (8 sets, daily range): BP systolic 99–125; BP diastolic 54–69; PULSE 60–80; RESP 12–18; TEMP 36.3–37.1; O2SAT 93–96
[2024-07-24 02:09] LABS: Glucose Point of Care 161 mg/dl (65-105)
[2024-07-24 06:28] LABS: Basophils Absolute Auto 0.1 K/mm3 (0.0-0.1); Basophils Percent Auto 0.9 % (0.2-1.2); Eosinophils Percent Auto 0.7 % (0-4.4); Hematocrit 40.9 % (42.0-52.0); Hemoglobin 12.7 g/dL (14.0-18.0); Immature Granulocyte Absolute 0.03 K/mm3 (0.00-0.031); Immature Granulocyte Percent A 0.5 % (0-0.5); Immature Platelet Fraction Pct 5.4 % (0.9-11.2); Lymphocytes Absolute Auto 0.79 K/mm3 (0.9-3.2); Lymphocytes Percent Auto 13.6 % (18.3-44.2); Mean Corpuscular HGB Conc 31.1 g/dl (32-36); Mean Platelet Volume 11.9 fl (7.4-10.4); Monocytes Absolute Auto 1.1 K/mm3 (0.1-0.6); Monocytes Percent Auto 18.6 % (2.6-8.5); Neutrophils Absolute Auto 3.8 K/mm3 (1.3-6.7); Neutrophils Percent Auto 65.7 % (45.5-73.1); Platelet Count Result 83 k/mm3 (150-375); Red Blood Count 3.97 M/mm3 (4.6-6.20); Red Cell Distribution Width 18.4 % (11.5-14.5); White Blood Count 5.8 K/mm3 (4.5-10.0)
[2024-07-24 06:36] LABS: Glucose Point of Care 177 mg/dl (65-105)
[2024-07-24 06:39] LABS: Albumin Level 3.3 g/dL (3.5-5.1); Anion Gap 9 mmol/L (4-12); Blood Urea Nitrogen 36 mg/dL (9-20); Calcium 8.9 mg/dL (8.4-10.2); Carbon Dioxide 27 mmol/L (22-30); Chloride 100 mmol/L (98-107); Estimated CRCL calculation 11 ml/min; Estimated Glomerular Filt Rate 12; Glucose 170 mg/dL (65-110); Magnesium 2.3 mg/dL (1.6-2.3); Potassium 4.2 mmol/L (3.4-5.0); Sodium 136 mmol/L (137-145)
[2024-07-24 07:03] LABS: Anisocytosis 1+; Platelet Estimate Decreased (Adequate)
[2024-07-24 07:04] LABS: Burr Cells 1+; Schistocytes None Seen
[2024-07-24] MEDS: FLUTICASONE/SALMETEROL 115-21 MCG INHALER 1 PUFF 2 PUFF INHALATION ×2 (07:50→21:05)
[2024-07-24] MEDS: LACTULOSE 20 GM/30 ML UDC PO ×3 (08:46→17:10)
[2024-07-24] MEDS: ATORVASTATIN 10 MG TABLET PO (08:47)
[2024-07-24] MEDS: CHOLECALCIFEROL 1,000 UNITS TABLET 2000 UNITS PO (08:48)
[2024-07-24] MEDS: BUMETANIDE 1 MG TABLET PO ×2 (08:48→17:09)
[2024-07-24] MEDS: CALCIUM ACETATE 667 MG TABLET 1334 MG PO ×3 (08:49→17:08)
[2024-07-24] MEDS: APIXABAN 2.5 MG TABLET PO ×2 (08:49→21:18)
[2024-07-24] MEDS: allopurinoL 100 MG TABLET PO (08:49)
[2024-07-24] MEDS: CYANOCOBALAMIN 1,000 MCG TABLET 1000 MCG PO (08:49)
--- NOTE | 2024-07-24 11:01 | REHSTMBS ---
Assessment and note entered by Radha Timmons, [employer] Modified Barium Swallow Evaluation Feeding Type Recommended Non-Oral ST Clinical Summary Patient seen for modified barium swallow study. He sat with his head leaning to right side, unable to correct with cues. He was presented with 5cc thin liquid barium. Fluid spilled to fill valleculae and spilled over to pyriform sinuses without triggering a swallow. With repeat cues to swallow and cough, patient did eventually swallow and mostly cleared pharyngeal area. Two small bites of pudding mixed with barium was presented with similar findings. Material coats valleculae and pyriform sinus cavities without triggering a swallow until cued. One more presentation with 5 cc thin liquid barium was provided in an effort to help clear pharyngeal area. With cues, patient swallowed. Patient is not safe for oral intake at this time. He demonstrated limited ability to follow directions and limited sensation as evidenced by no triggering of swallow until repeat cues provided. NPO recommended.
[2024-07-24 12:09] LABS: Glucose Point of Care 174 mg/dl (65-105)
[2024-07-24] MEDS: MIDODRINE HCL 10 MG TABLET PO (12:18)
--- NOTE | 2024-07-24 14:40 | P.PNNP_ITS ---
Progress Note: A&P Assessment and Plan (1) End-stage renal disease (ESRD): Code(s): N18.6 - End stage renal disease Status: Chronic Assessment and Plan: * HD done yesterday. * will do tomorrow (holiday schedule * fluid status looks okay * K, Co2 okay (2) Hyperkalemia: Code(s): E87.5 - Hyperkalemia Status: Resolved Assessment and Plan: * resolved (3) Altered mental status: Qualifiers: Altered mental status type: disorientation Qualified Code(s): R41.0 - Disorientation, unspecified Code(s): R41.82 - Altered mental status, unspecified Status: Acute Assessment and Plan: * slow/ongoing improvement noted * as noted on presentation * no evidence of infection/sepsis... * however, mild lactic acidosis noted * pyuria but only a few wbcs. * no culture done yet. * check a culture * imaging reviewed: * CT head: No significant abnormality seen. * CXR negative for PNA. viral PCR negative. * CT chest/abd/pelvis: small right pleural effusion, 3 cm indeterminate left renal mass, cholelithiasis, small amount of abdominopelvic ascites, umbilical hernia which contains a focal small bowel * questionable UTI by UA but no cx done. * elevated ammonia level noted * initiated on lactulose via NG tube * holding potential sedative medications (gabapentin and norco) * able to converse but still very weak. * long discussion with patient, , Stewart. (4) Hypotension: Code(s): I95.9 - Hypotension, unspecified Status: Chronic Assessment and Plan: * chronic issue at baseline * on midodrine therapy * follow trend of hemodynamics (5) Anemia: Qualifiers: Anemia type: unspecified type Qualified Code(s): D64.9 - Anemia, unspecified Code(s): D64.9 - Anemia, unspecified Status: Chronic Assessment and Plan: * due to ESRD * hb stable in mid 12 range (6) Diabetes: Qualifiers: Diabetes mellitus type: type 2 Diabetes mellitus nursing home insulin use: without nursing home use Diabetes mellitus complication status: with kidney complications Diabetes mellitus complication detail: with chronic kidney disease Chronic kidney disease stage: on chronic dialysis Qualified Code(s): E11.22 - Type 2 diabetes mellitus with diabetic chronic kidney disease; N18.6 - End stage renal disease; Z99.2 - Dependence on renal dialysis Code(s): E11.9 - Type 2 diabetes mellitus without complications Status: Chronic Assessment and Plan: * follow accu-cheks * glycemic control per hospitalists Subjective Date/time seen: 07/24/24 14:40 Interval history: awake but not himself and son Stewart in the room. no sob. Review of Systems Cardiovascular: Cardiovascular: Reports no additional cardiovascular complaints Respiratory: Respiratory: Reports no additional respiratory complaints Gastrointestinal: Gastrointestinal: Reports no additional gastrointestinal complaints Genitourinary: Genitourinary: Reports no additional male genitourinary complaints Exam Narrative: WDWN in NAD skin no rash head ncat lungs clear cor reg no rub abd BS+ nontender and soft ext no edema. Objective Data Vital Signs Vital Signs: Vital Signs - 24 hr 07/23/24 15:55 07/23/24 16:00 07/23/24 16:00 Temperature 97.9 F Pulse Rate 62 63 Respiratory Rate 18 Blood Pressure 102/62 Pulse Oximetry 98 Oxygen Delivery Room Air 07/23/24 18:00 07/23/24 20:24 07/23/24 20:58 Temperature 97.8 F Pulse Rate 62 75 62 Respiratory Rate 19 18 Blood Pressure 103/56 L Pulse Oximetry 97 Oxygen Delivery 07/24/24 00:00 07/24/24 04:00 07/24/24 09:18 Temperature 97.6 F 97.4 F L Pulse Rate 66 60 Respiratory Rate 14 14 Blood Pressure 103/65 108/66 Pulse Oximetry 95 96 93 Oxygen Delivery Room Air Intake/Output Intake/Output: Intake & Output 07/21/24 07/22/24 07/23/24 07/24/24 23:59 23:59 23:59 23:59 Intake Total 50 50 0 0 Output Total 3000 0 1500 Balance -2950 50 -1500 0 Meds/Results Medications: Active Medications Generic Name Dose Route Start Last Admin Trade Name Freq PRN Reason Stop Dose Admin Acetaminophen 650 mg 07/21/24 12:38 Acetaminophen 325 Mg Tablet PO Q6H PRN Mild Pain (1-3) Or Fever Albuterol 2 puff 07/21/24 12:38 Albuterol Sulfate (*Sp) Aerosol 1 Puff INHALATION Q6HRT PRN sob/wheezing Allopurinol 100 mg 07/21/24 12:50 07/24/24 08:49 Allopurinol 100 Mg Tablet PO 100 mg DAILY CESAR Administration Apixaban 2.5 mg 07/21/24 12:50 07/24/24 08:49 Apixaban 2.5 Mg Tablet PO 2.5 mg Q12HR CESAR Administration Atorvastatin Calcium 10 mg 07/21/24 12:50 07/24/24 08:47 Atorvastatin 10 Mg Tablet PO 10 mg DAILY CESAR Administration Benzonatate 0 mg 07/21/24 12:40 Benzonatate 100 Mg Capsule PO TID PRN Cough Bumetanide 1 mg 07/21/24 17:00 07/24/24 08:48 Bumetanide 1 Mg Tablet PO 1 mg BID CESAR Administration Calcitriol 0.25 mcg 07/21/24 13:00 07/23/24 13:21 Calcitriol 0.25 Mcg Capsule PO Not Given [id number]@[id number] [facility] Calcium Acetate 1,334 mg 07/21/24 12:00 07/24/24 11:47 Calcium Acetate 667 Mg Tablet PO 1,334 mg TIDWM CESAR Administration Cyanocobalamin 1,000 mcg 07/21/24 12:50 07/24/24 08:49 Cyanocobalamin 1,000 Mcg Tablet PO 1,000 mcg DAILY CESAR Administration Dextrose 12.5 gm 07/21/24 08:12 Dextrose 50% 25 Gm/50 Ml Syringe IV PUSH PRN PRN Hypoglycemia Protocol Dextrose 12.5 gm 07/21/24 12:35 Dextrose 50% 25 Gm/50 Ml Syringe IV PUSH PRN PRN Hypoglycemia Protocol Ferrous Sulfate 650 mg 07/21/24 13:00 07/23/24 08:17 Ferrous Sulfate [address] PO 650 mg Q48HR CESAR Administration Glucagon 1 mg 07/21/24 12:35 Glucagon For Inj 1 Mg Vial IM PRN PRN Hypoglycemia Protocol Glucose 15 gm 07/21/24 12:35 Glucose Oral Gel 15 Gm Of Glucse In 37.5 Gm Tube PO PRN PRN Hypoglycemia Protocol Albumin Human 50 mls @ 999 mls/hr 07/21/24 08:43 Albutein IVPB 08/20/24 08:42 Q10M PRN HYPOTENSION Dextrose 1,000 mls @ 100 mls/hr 07/21/24 12:35 Dextrose 5% 1,000 Ml IVPB PRN PRN Hypoglycemia Protocol Insulin Aspart 4 - 8 units 07/21/24 12:00 07/24/24 11:44 Insulin Aspart (*Bkc) 100 Units/Ml SUB-Q Not Given Q6HR [facility] Protocol Lactulose 20 gm 07/21/24 18:00 07/24/24 11:59 Lactulose 20 Gm/30 Ml Udc PO 20 gm TID CESAR Administration Midodrine 10 mg 07/21/24 12:43 07/24/24 12:18 Midodrine Hcl 10 Mg Tablet PO 10 mg DAILY PRN Administration Hypotension with dialysis Miscellaneous Information 0 each 07/21/24 00:01 07/22/24 00:18 Liraglutide [Victoza 2-Vidal] 0.6 Mg/0.1 Ml = Non Formulary XX 08/20/24 00:00 Not Given CLARIFY [facility] Non-Formulary Medication 1.2 mg 07/22/24 09:00 Liraglutide [Victoza 2-Vidal] SUB-Q 08/21/24 08:59 DAILY [facility]AR Ondansetron HCl 4 mg 07/21/24 08:12 Ondansetron Inj 4 Mg/2 Ml Vial IV PUSH Q4H PRN Nausea Fluticasone/Salmeterol 2 puff 07/21/24 20:00 07/24/24 07:50 Fluticasone/Salmeterol 115-21 Mcg Inhaler 1 Puff INHALATION 2 puff Q12HRT [facility]AR Administration Vitamin D 2,000 units 07/21/24 12:50 07/24/24 08:48 Cholecalciferol 1,000 Units Tablet PO 2,000 units DAILY CESAR Administration Radiology Results: ITS Impressions Chest/Abdomen/Pelvis CT 07/21/24 07:04 Impression: Small right pleural effusion. 3 cm indeterminate left renal mass. Further evaluation with ultrasound or pre and postcontrast CT/MR advised. Cholelithiasis. Small amount of abdominopelvic ascites. Umbilical hernia which contains a focal small bowel. Chest X-Ray 07/21/24 07:12 Impression: Central congestive change and probable mild bibasilar pulmonary edema. Discoid left mid lung atelectasis. Stable support line. Head CT 07/21/24 17:53 IMPRESSION: 1. 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 Abdomen X-Ray 07/21/24 18:21 IMPRESSION: 1. Nasogastric tube tip in the stomach. Arterial/Peripheral Duplex 07/21/24 19:22 IMPRESSION: 1. Pulsatile antegrade flow in the portal veins, likely secondary to congestive heart failure. Modified Barium Swallow 07/24/24 11:57 IMPRESSION: 1. No laryngeal penetration or aspiration. 2. Please refer to the speech therapy report for recommendations. Labs Labs: Laboratory Results - last 24 hr 07/23/24 07/24/24 07/24/24 17:48 02:04 06:08 WBC 5.8 RBC 3.97 L Hgb 12.7 L Hct 40.9 L MCV 103.0 H MCH 32.0 MCHC 31.1 L RDW 18.4 H Plt Count 83 L MPV 11.9 H Immature Gran % (Auto) 0.5 Neut % (Auto) 65.7 Lymph % (Auto) 13.6 L [place] % (Auto) 18.6 H Eos % (Auto) 0.7 Baso % (Auto) 0.9 Lymph # (Auto) 0.79 L [place] # (Auto) 1.1 H Eos # (Auto) 0.0 Baso # (Auto) 0.1 Abs Immat Gran (auto) 0.03 Absolute Neuts (auto) 3.8 Absolute Nucleated RBC 0.000 Nucleated RBC % 0.0 Platelet Estimate Decreased % Immature Plt Fraction 5.4 Anisocytosis 1+ [place] Cells 1+ Schistocytes None seen Sodium 136 L Potassium 4.2 Chloride 100 Carbon Dioxide 27 Anion Gap 9 BUN 36 H D Creatinine 5.60 H Estim Creat Clear Calc 11 Estimated GFR 12 L Glucose 170 H POC Capillary Glucose 185 H 161 H Calcium 8.9 Phosphorus 4.0 Magnesium 2.3 Albumin 3.3 L 07/24/24 07/24/24 06:32 11:41 WBC RBC Hgb Hct MCV MCH MCHC RDW Plt Count MPV Immature Gran % (Auto) Neut % (Auto) Lymph % (Auto) [place] % (Auto) Eos % (Auto) Baso % (Auto) Lymph # (Auto) [place] # (Auto) Eos # (Auto) Baso # (Auto) Abs Immat Gran (auto) Absolute Neuts (auto) Absolute Nucleated RBC Nucleated RBC % Platelet Estimate % Immature Plt Fraction Anisocytosis [place] Cells Schistocytes Sodium Potassium Chloride Carbon Dioxide Anion Gap BUN Creatinine Estim Creat Clear Calc Estimated GFR Glucose POC Capillary Glucose 177 H 174 H Calcium Phosphorus Magnesium Albumin
--- NOTE | 2024-07-24 14:51 | P.PNIM_ITS ---
Progress Note: A&P Assessment and Plan (1) Altered mental status: Qualifiers: Altered mental status type: disorientation Qualified Code(s): R41.0 - Disorientation, unspecified Code(s): R41.82 - Altered mental status, unspecified Status: Acute Assessment and Plan: Patient presents with AMS. He did not meet SIRS criteria but lactic 2.1 ->2.5. CT head showing no significant abnormalities. Can not obtain MRI brain but repeat CT brain showing no acute findings. CXR showing central congestive changes and pulmonary edema. Viral PCR negative. UCx negative. BCx NGTD CT chest/abd/pelvis showing small right pleural effusion, 3cm indeterminate left renal mass, cholelithiasis, small amount of abdominopelvic ascites and umbilical hernia which contains a focal small bowel (easily reducible) Ammonia 122. ABG 7.48/ on RA. TSH, folate and B12 normal. Troponin flat with 0.028 -> 0.031 Suspect AMS secondary to ammonia levels Treated with lactulose and mental status has improved. (2) Increased ammonia level: Code(s): R79.89 - Other specified abnormal findings of blood chemistry Status: Acute Assessment and Plan: Ammonia 122 Total bilirubin 3.3 but LFTs otherwise normal. DBili 0 so possible Gilbert's No history of cirrhosis or ETOH abuse US retroperitoneal duplex showing pulsatile antegrade flow in the portal veins 2nd to CHF. CT showing a small amount of abdominal and pelvic ascites but no abnormalities seen of the liver. Echo showing normal LV with hyperdynamic systolic fxn EF >70%, severely dilated RV with reduced systolic fxn, RV pressure overload significantly elevated RAP. Biatrial enlargement. There is a small mobile echodensity in the RA possibly an eustachian valve. NGT placed and started on lactulose t.i.d. Repeat ammonia better. Clinically patient is improving. Speech evaluation (MBS) showing patient is not safe for oral intake at this time. Continue TF. Repeat swallow study in a few days. Continue PT/OT. (3) Acute on chronic diastolic CHF (congestive heart failure): Code(s): I50.33 - Acute on chronic diastolic (congestive) heart failure Status: Acute Assessment and Plan: CXR showing central congestive change and probable mild bibasilar pulmonary edema, discoid left mid lung atelectasis. BNP > 30,000 Echo as above with right sided failure. Currently on Bumex at home which was continued. Fluid management with HD. Appreciate nephrology input (4) ESRD (end stage renal disease) on dialysis: Code(s): N18.6 - End stage renal disease; Z99.2 - Dependence on renal dialysis Status: Acute Assessment and Plan: Patient with ESRD. Nephrology consulted for inpatient dialysis; appreciate their input HD on MWF but may need extra HD given the above findings. Continue midodrine prn Trend electrolytes (5) Diabetes: Qualifiers: Diabetes mellitus type: type 2 Diabetes mellitus buttermaker continuous churn insulin use: without senior living use Diabetes mellitus complication status: with kidney complications Diabetes mellitus complication detail: with chronic kidney disease Chronic kidney disease stage: on chronic dialysis Qualified Code(s): E11.22 - Type 2 diabetes mellitus with diabetic chronic kidney disease; N18.6 - End stage renal disease; Z99.2 - Dependence on renal dialysis Code(s): E11.9 - Type 2 diabetes mellitus without complications Status: Chronic Assessment and Plan: The patient's blood glucose was reviewed on 07/24 Glucose remains well controlled. Continue AccuCheks covering with sliding scale. Hypoglycemia protocol available as needed. Continue Tube feedings Plan Thrombocytopenia - chronic and stable. Monitor Diet: Not able to start oral feedings. Continue tube feedings. DVT Prophylaxis: Eliquis Code Status: Full code Subjective Date/time seen: 07/24/24 14:51 Interval history: 84yo male with ESRD on HD, CHF, AFib, DM, pHTN and HTN here for alteed mental status. No issues overnight. No CP. HD went well yesterday. SLept okay. Denies feeling SOB. Exam Narrative: AF 98.1 99/54 80 18 95% ra Gen - NARD HEENT - NGT secured Chest - few bibasilar inspiratory crackles o/w clear. Right upper chest tunneled HD catheter. CV - Irregular irregular Abd - Soft, obese, NT, umbilical hernia that is easily reducible Ext - no significant pedal edema Neuro - more awake and alert Psych - cooperative and follows commands Skin - Warm and dry Objective Data Vital Signs Vital Signs: Vital Signs - 24 hr 07/23/24 15:55 07/23/24 16:00 07/23/24 16:00 Temperature 97.9 F Pulse Rate 62 63 Respiratory Rate 18 Blood Pressure 102/62 Pulse Oximetry 98 Oxygen Delivery Room Air 07/23/24 18:00 07/23/24 20:24 07/23/24 20:58 Temperature 97.8 F Pulse Rate 62 75 62 Respiratory Rate 19 18 Blood Pressure 103/56 L Pulse Oximetry 97 Oxygen Delivery 07/24/24 00:00 07/24/24 04:00 07/24/24 09:18 Temperature 97.6 F 97.4 F L Pulse Rate 66 60 Respiratory Rate 14 14 Blood Pressure 103/65 108/66 Pulse Oximetry 95 96 93 Oxygen Delivery Room Air 07/24/24 12:00 Temperature 98.1 F Pulse Rate 80 Respiratory Rate 18 Blood Pressure 99/54 L Pulse Oximetry 95 Oxygen Delivery Intake/Output Intake/Output: Intake & Output 07/21/24 07/22/24 07/23/24 07/24/24 23:59 23:59 23:59 23:59 Intake Total 50 50 0 0 Output Total 3000 0 1500 Balance -2950 50 -1500 0 Meds/Results Medications: Active Medications Generic Name Dose Route Start Last Admin Trade Name Freq PRN Reason Stop Dose Admin Acetaminophen 650 mg 07/21/24 12:38 Acetaminophen 325 Mg Tablet PO Q6H PRN Mild Pain (1-3) Or Fever Albuterol 2 puff 07/21/24 12:38 Albuterol Sulfate (*Sp) Aerosol 1 Puff INHALATION Q6HRT PRN sob/wheezing Allopurinol 100 mg 07/21/24 12:50 07/24/24 08:49 Allopurinol 100 Mg Tablet PO 100 mg DAILY CESAR Administration Apixaban 2.5 mg 07/21/24 12:50 07/24/24 08:49 Apixaban 2.5 Mg Tablet PO 2.5 mg Q12HR CESAR Administration Atorvastatin Calcium 10 mg 07/21/24 12:50 07/24/24 08:47 Atorvastatin 10 Mg Tablet PO 10 mg DAILY CESAR Administration Benzonatate 0 mg 07/21/24 12:40 Benzonatate 100 Mg Capsule PO TID PRN Cough Bumetanide 1 mg 07/21/24 17:00 07/24/24 08:48 Bumetanide 1 Mg Tablet PO 1 mg BID CESAR Administration Calcitriol 0.25 mcg 07/21/24 13:00 07/23/24 13:21 Calcitriol 0.25 Mcg Capsule PO Not Given SuMoWeFr@0900 CESAR Calcium Acetate 1,334 mg 07/21/24 12:00 07/24/24 11:47 Calcium Acetate 667 Mg Tablet PO 1,334 mg TIDWM CESAR Administration Cyanocobalamin 1,000 mcg 07/21/24 12:50 07/24/24 08:49 Cyanocobalamin 1,000 Mcg Tablet PO 1,000 mcg DAILY CESAR Administration Dextrose 12.5 gm 07/21/24 08:12 Dextrose 50% 25 Gm/50 Ml Syringe IV PUSH PRN PRN Hypoglycemia Protocol Dextrose 12.5 gm 07/21/24 12:35 Dextrose 50% 25 Gm/50 Ml Syringe IV PUSH PRN PRN Hypoglycemia Protocol Ferrous Sulfate 650 mg 07/21/24 13:00 07/23/24 08:17 Ferrous Sulfate [address] PO 650 mg Q48HR CESAR Administration Glucagon 1 mg 07/21/24 12:35 Glucagon For Inj 1 Mg Vial IM PRN PRN Hypoglycemia Protocol Glucose 15 gm 07/21/24 12:35 Glucose Oral Gel 15 Gm Of Glucse In 37.5 Gm Tube PO PRN PRN Hypoglycemia Protocol Albumin Human 50 mls @ 999 mls/hr 07/21/24 08:43 Albutein IVPB 08/20/24 08:42 Q10M PRN HYPOTENSION Dextrose 1,000 mls @ 100 mls/hr 07/21/24 12:35 Dextrose 5% 1,000 Ml IVPB PRN PRN Hypoglycemia Protocol Insulin Aspart 4 - 8 units 07/21/24 12:00 07/24/24 11:44 Insulin Aspart (*Bkc) 100 Units/Ml SUB-Q Not Given Q6HR [facility] Protocol Lactulose 20 gm 07/21/24 18:00 07/24/24 11:59 Lactulose 20 Gm/30 Ml Udc PO 20 gm TID CESAR Administration Midodrine 10 mg 07/21/24 12:43 07/24/24 12:18 Midodrine Hcl 10 Mg Tablet PO 10 mg DAILY PRN Administration Hypotension with dialysis Miscellaneous Information 0 each 07/21/24 00:01 07/22/24 00:18 Liraglutide [Victoza 2-Vidal] 0.6 Mg/0.1 Ml = Non Formulary XX 08/20/24 00:00 Not Given CLARIFY CESAR Non-Formulary Medication 1.2 mg 07/22/24 09:00 Liraglutide [Victoza 2-Vidal] SUB-Q 08/21/24 08:59 DAILY CESAR Ondansetron HCl 4 mg 07/21/24 08:12 Ondansetron Inj 4 Mg/2 Ml Vial IV PUSH Q4H PRN Nausea Fluticasone/Salmeterol 2 puff 07/21/24 20:00 07/24/24 07:50 Fluticasone/Salmeterol 115-21 Mcg Inhaler 1 Puff INHALATION 2 puff Q12HRT CESAR Administration Vitamin D 2,000 units 07/21/24 12:50 07/24/24 08:48 Cholecalciferol 1,000 Units Tablet PO 2,000 units DAILY CESAR Administration Radiology Results: ITS Impressions Chest/Abdomen/Pelvis CT 07/21/24 07:04 Impression: Small right pleural effusion. 3 cm indeterminate left renal mass. Further evaluation with ultrasound or pre and postcontrast CT/MR advised. Cholelithiasis. Small amount of abdominopelvic ascites. Umbilical hernia which contains a focal small bowel. Chest X-Ray 07/21/24 07:12 Impression: Central congestive change and probable mild bibasilar pulmonary edema. Discoid left mid lung atelectasis. Stable support line. Head CT 07/21/24 17:53 IMPRESSION: 1. 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 Abdomen X-Ray 07/21/24 18:21 IMPRESSION: 1. Nasogastric tube tip in the stomach. Arterial/Peripheral Duplex 07/21/24 19:22 IMPRESSION: 1. Pulsatile antegrade flow in the portal veins, likely secondary to congestive heart failure. Modified Barium Swallow 07/24/24 11:57 IMPRESSION: 1. No laryngeal penetration or aspiration. 2. Please refer to the speech therapy report for recommendations. Labs Labs: Laboratory Results - last 24 hr 07/23/24 07/24/24 07/24/24 17:48 02:04 06:08 WBC 5.8 RBC 3.97 L Hgb 12.7 L Hct 40.9 L MCV 103.0 H MCH 32.0 MCHC 31.1 L RDW 18.4 H Plt Count 83 L MPV 11.9 H Immature Gran % (Auto) 0.5 Neut % (Auto) 65.7 Lymph % (Auto) 13.6 L [place] % (Auto) 18.6 H Eos % (Auto) 0.7 Baso % (Auto) 0.9 Lymph # (Auto) 0.79 L [place] # (Auto) 1.1 H Eos # (Auto) 0.0 Baso # (Auto) 0.1 Abs Immat Gran (auto) 0.03 Absolute Neuts (auto) 3.8 Absolute Nucleated RBC 0.000 Nucleated RBC % 0.0 Platelet Estimate Decreased % Immature Plt Fraction 5.4 Anisocytosis 1+ [place] Cells 1+ Schistocytes None seen Sodium 136 L Potassium 4.2 Chloride 100 Carbon Dioxide 27 Anion Gap 9 BUN 36 H D Creatinine 5.60 H Estim Creat Clear Calc 11 Estimated GFR 12 L Glucose 170 H POC Capillary Glucose 185 H 161 H Calcium 8.9 Phosphorus 4.0 Magnesium 2.3 Albumin 3.3 L 07/24/24 07/24/24 06:32 11:41 WBC RBC Hgb Hct MCV MCH MCHC RDW Plt Count MPV Immature Gran % (Auto) Neut % (Auto) Lymph % (Auto) [place] % (Auto) Eos % (Auto) Baso % (Auto) Lymph # (Auto) [place] # (Auto) Eos # (Auto) Baso # (Auto) Abs Immat Gran (auto) Absolute Neuts (auto) Absolute Nucleated RBC Nucleated RBC % Platelet Estimate % Immature Plt Fraction Anisocytosis [place] Cells Schistocytes Sodium Potassium Chloride Carbon Dioxide Anion Gap BUN Creatinine Estim Creat Clear Calc Estimated GFR Glucose POC Capillary Glucose 177 H 174 H Calcium Phosphorus Magnesium Albumin
[2024-07-24 17:54] LABS: Glucose Point of Care 171 mg/dl (65-105)
[2024-07-24 20:56] LABS: Glucose Point of Care 172 mg/dl (65-105)
[2024-07-25] VITALS (23 sets, daily range): BP systolic 93–124; BP diastolic 56–75; PULSE 55–73; RESP 12–18; TEMP 36.1–37; O2SAT 92–98
[2024-07-25 06:05] LABS: Glucose Point of Care 140 mg/dl (65-105)
[2024-07-25] MEDS: FLUTICASONE/SALMETEROL 115-21 MCG INHALER 1 PUFF 2 PUFF INHALATION (07:47)
[2024-07-25] MEDS: CHOLECALCIFEROL 1,000 UNITS TABLET 2000 UNITS PO (08:10)
[2024-07-25] MEDS: ATORVASTATIN 10 MG TABLET PO (08:10)
[2024-07-25] MEDS: LACTULOSE 20 GM/30 ML UDC PO ×3 (08:10→17:03)
[2024-07-25] MEDS: MIDODRINE HCL 10 MG TABLET PO (08:10)
[2024-07-25] MEDS: APIXABAN 2.5 MG TABLET PO ×2 (08:11→21:13)
[2024-07-25] MEDS: allopurinoL 100 MG TABLET PO (08:11)
[2024-07-25] MEDS: FERROUS SULFATE 325 MG TABLET DR 650 MG PO (08:11)
[2024-07-25] MEDS: CALCIUM ACETATE 667 MG TABLET 1334 MG PO ×3 (08:12→17:03)
[2024-07-25] MEDS: CYANOCOBALAMIN 1,000 MCG TABLET 1000 MCG PO (08:13)
[2024-07-25] MEDS: calcitrioL 0.25 MCG CAPSULE PO (08:13)
--- NOTE | 2024-07-25 09:57 | P.PNNP_ITS ---
Progress Note: A&P Assessment and Plan (1) End-stage renal disease (ESRD): Code(s): N18.6 - End stage renal disease Status: Chronic Assessment and Plan: * HD under way today. * fluid status looks okay * K, Co2 okay (2) Hyperkalemia: Code(s): E87.5 - Hyperkalemia Status: Resolved Assessment and Plan: * resolved (3) Altered mental status: Qualifiers: Altered mental status type: disorientation Qualified Code(s): R41.0 - Disorientation, unspecified Code(s): R41.82 - Altered mental status, unspecified Status: Acute Assessment and Plan: * Encephalopathy * no evidence of infection/sepsis... * however, mild lactic acidosis noted * pyuria but only a few wbcs. * no culture done yet. * check a culture * imaging reviewed: * CT head: No significant abnormality seen. * CXR negative for PNA. viral PCR negative. * CT chest/abd/pelvis: small right pleural effusion, 3 cm indeterminate left renal mass, cholelithiasis, small amount of abdominopelvic ascites, umbilical hernia which contains a focal small bowel * questionable UTI by UA but no cx done. * elevated ammonia level noted * initiated on lactulose via NG tube * B12, folate, TSH all okay. * Holding potential sedative medications (gabapentin and norco) * able to converse but still very weak. (4) Hypotension: Code(s): I95.9 - Hypotension, unspecified Status: Chronic Assessment and Plan: * chronic issue at baseline * on midodrine therapy * follow trend of hemodynamics (5) Anemia: Qualifiers: Anemia type: unspecified type Qualified Code(s): D64.9 - Anemia, unspecified Code(s): D64.9 - Anemia, unspecified Status: Chronic Assessment and Plan: * due to ESRD * hb stable in mid 12 range (6) Diabetes: Qualifiers: Diabetes mellitus type: type 2 Diabetes mellitus mcfp insulin use: without buttermaker helper use Diabetes mellitus complication status: with kidney complications Diabetes mellitus complication detail: with chronic kidney disease Chronic kidney disease stage: on chronic dialysis Qualified Code(s): E11.22 - Type 2 diabetes mellitus with diabetic chronic kidney disease; N18.6 - End stage renal disease; Z99.2 - Dependence on renal dialysis Code(s): E11.9 - Type 2 diabetes mellitus without complications Status: Chronic Assessment and Plan: * follow accu-cheks * glycemic control per hospitalists Subjective Date/time seen: 07/25/24 09:57 Interval history: Khalif is feeling about the same. Still not eating, has an NG tube in. The patient is on dialysis and tolerating well. He was seen at 9:35 a.m. Exam Narrative: WDWN in NAD skin no rash head ncat lungs clear cor reg no rub abd BS+ nontender and soft ext no edema. Objective Data Vital Signs Vital Signs: Vital Signs - 24 hr 07/24/24 12:00 07/24/24 16:00 07/24/24 20:00 Temperature 98.1 F 97.7 F 97.6 F Pulse Rate 80 70 77 Respiratory Rate 18 18 12 Blood Pressure 99/54 L 116/56 L 125/59 L Pulse Oximetry 95 95 94 Oxygen Delivery 07/24/24 20:00 07/24/24 21:41 07/24/24 23:41 Temperature 98.7 F Pulse Rate 74 Respiratory Rate 12 Blood Pressure 117/69 Pulse Oximetry 93 94 Oxygen Delivery Room Air Room Air 07/25/24 04:00 07/25/24 07:38 07/25/24 07:38 Temperature 97.6 F Pulse Rate 73 67 67 Respiratory Rate 12 18 18 Blood Pressure 122/57 L Pulse Oximetry 94 92 Oxygen Delivery Room Air 07/25/24 08:30 07/25/24 08:47 07/25/24 09:00 Temperature 97.7 F Pulse Rate 62 61 56 L Respiratory Rate 18 Blood Pressure 105/72 101/67 115/64 Pulse Oximetry 98 Oxygen Delivery 07/25/24 09:15 07/25/24 09:30 07/25/24 09:45 Temperature Pulse Rate 62 62 57 L Respiratory Rate Blood Pressure 118/65 106/66 114/60 Pulse Oximetry Oxygen Delivery Intake/Output Intake/Output: Intake & Output 07/22/24 07/23/24 07/24/24 07/25/24 23:59 23:59 23:59 23:59 Intake Total 50 0 718 309 Output Total 0 1500 Balance 50 -1500 718 309 Meds/Results Medications: Active Medications Generic Name Dose Route Start Last Admin Trade Name Freq PRN Reason Stop Dose Admin Acetaminophen 650 mg 07/21/24 12:38 Acetaminophen 325 Mg Tablet PO Q6H PRN Mild Pain (1-3) Or Fever Albuterol 2 puff 07/21/24 12:38 Albuterol Sulfate (*Sp) Aerosol 1 Puff INHALATION Q6HRT PRN sob/wheezing Allopurinol 100 mg 07/21/24 12:50 07/25/24 08:11 Allopurinol 100 Mg Tablet PO 100 mg DAILY CESAR Administration Apixaban 2.5 mg 07/21/24 12:50 07/25/24 08:11 Apixaban 2.5 Mg Tablet PO 2.5 mg Q12HR CESAR Administration Atorvastatin Calcium 10 mg 07/21/24 12:50 07/25/24 08:10 Atorvastatin 10 Mg Tablet PO 10 mg DAILY CESAR Administration Benzonatate 0 mg 07/21/24 12:40 Benzonatate 100 Mg Capsule PO TID PRN Cough Bumetanide 1 mg 07/21/24 17:00 07/25/24 08:07 Bumetanide 1 Mg Tablet PO Not Given BID CESAR Calcitriol 0.25 mcg 07/21/24 13:00 07/25/24 08:13 Calcitriol 0.25 Mcg Capsule PO 0.25 mcg [id number] CESAR Administration Calcium Acetate 1,334 mg 07/21/24 12:00 07/25/24 08:12 Calcium Acetate 667 Mg Tablet PO 1,334 mg TIDWM CESAR Administration Cyanocobalamin 1,000 mcg 07/21/24 12:50 07/25/24 08:13 Cyanocobalamin 1,000 Mcg Tablet PO 1,000 mcg DAILY CESAR Administration Dextrose 12.5 gm 07/21/24 08:12 Dextrose 50% 25 Gm/50 Ml Syringe IV PUSH PRN PRN Hypoglycemia Protocol Dextrose 12.5 gm 07/21/24 12:35 Dextrose 50% 25 Gm/50 Ml Syringe IV PUSH PRN PRN Hypoglycemia Protocol Ferrous Sulfate 650 mg 07/21/24 13:00 07/25/24 08:11 Ferrous Sulfate [address] PO 650 mg Q48HR CESAR Administration Glucagon 1 mg 07/21/24 12:35 Glucagon For Inj 1 Mg Vial IM PRN PRN Hypoglycemia Protocol Glucose 15 gm 07/21/24 12:35 Glucose Oral Gel 15 Gm Of Glucse In 37.5 Gm Tube PO PRN PRN Hypoglycemia Protocol Albumin Human 50 mls @ 999 mls/hr 07/21/24 08:43 Albutein IVPB 08/20/24 08:42 Q10M PRN HYPOTENSION Dextrose 1,000 mls @ 100 mls/hr 07/21/24 12:35 Dextrose 5% 1,000 Ml IVPB PRN PRN Hypoglycemia Protocol Insulin Aspart 4 - 8 units 07/21/24 12:00 07/25/24 05:24 Insulin Aspart (*Bkc) 100 Units/Ml SUB-Q Not Given Q6HR CESAR Protocol Lactulose 20 gm 07/21/24 18:00 07/25/24 08:10 Lactulose 20 Gm/30 Ml Udc PO 20 gm TID CESAR Administration Midodrine 10 mg 07/21/24 12:43 07/25/24 08:10 Midodrine Hcl 10 Mg Tablet PO 10 mg DAILY PRN Administration Hypotension with dialysis Miscellaneous Information 0 each 07/21/24 00:01 07/24/24 21:18 Liraglutide [Victoza 2-Vidal] 0.6 Mg/0.1 Ml = Non Formulary XX 08/20/24 00:00 Not Given CLARIFY CESAR Non-Formulary Medication 1.2 mg 07/22/24 09:00 Liraglutide [Victoza 2-Vidal] SUB-Q 08/21/24 08:59 DAILY CESAR Ondansetron HCl 4 mg 07/21/24 08:12 Ondansetron Inj 4 Mg/2 Ml Vial IV PUSH Q4H PRN Nausea Fluticasone/Salmeterol 2 puff 07/21/24 20:00 07/25/24 07:47 Fluticasone/Salmeterol 115-21 Mcg Inhaler 1 Puff INHALATION 2 puff Q12HRT CESAR Administration Vitamin D 2,000 units 07/21/24 12:50 07/25/24 08:10 Cholecalciferol 1,000 Units Tablet PO 2,000 units DAILY CESAR Administration Radiology Results: ITS Impressions Chest/Abdomen/Pelvis CT 07/21/24 07:04 Impression: Small right pleural effusion. 3 cm indeterminate left renal mass. Further evaluation with ultrasound or pre and postcontrast CT/MR advised. Cholelithiasis. Small amount of abdominopelvic ascites. Umbilical hernia which contains a focal small bowel. Head CT 07/21/24 17:53 IMPRESSION: 1. 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 Arterial/Peripheral Duplex 07/21/24 19:22 IMPRESSION: 1. Pulsatile antegrade flow in the portal veins, likely secondary to congestive heart failure. Modified Barium Swallow 07/24/24 11:57 IMPRESSION: 1. No laryngeal penetration or aspiration. 2. Please refer to the speech therapy report for recommendations. Chest X-Ray 07/25/24 06:10 IMPRESSION: 1. Mild atelectasis in the lower lung zones. 2. Cardiomegaly. Abdomen X-Ray 07/25/24 06:18 IMPRESSION: 1. Nasogastric tube tip in the stomach. Labs Labs: Laboratory Results - last 24 hr 07/24/24 07/24/24 07/24/24 11:41 17:50 20:40 POC Capillary Glucose 174 H 171 H 172 H 07/25/24 05:14 POC Capillary Glucose 140 H
[2024-07-25 13:08] LABS: Glucose Point of Care 117 mg/dl (65-105)
--- NOTE | 2024-07-25 14:28 | P.PNIM_ITS ---
Progress Note: A&P Assessment and Plan (1) Altered mental status: Qualifiers: Altered mental status type: disorientation Qualified Code(s): R41.0 - Disorientation, unspecified Code(s): R41.82 - Altered mental status, unspecified Status: Acute Assessment and Plan: Patient presents with AMS. He did not meet SIRS criteria but lactic 2.1 ->2.5. CT head showing no significant abnormalities. Can not obtain MRI brain but repeat CT brain showing no acute findings. CXR showing central congestive changes and pulmonary edema. Viral PCR negative. UCx negative. BCx NGTD CT chest/abd/pelvis showing small right pleural effusion, 3cm indeterminate left renal mass, cholelithiasis, small amount of abdominopelvic ascites and umbilical hernia which contains a focal small bowel (easily reducible) Ammonia 122. ABG 7.48/ on RA. TSH, folate and B12 normal. Troponin flat with 0.028 -> 0.031 Suspect AMS secondary to ammonia levels Treated with lactulose and mental status improved but worse today. Repeat ammonia level. (2) Increased ammonia level: Code(s): R79.89 - Other specified abnormal findings of blood chemistry Status: Acute Assessment and Plan: Ammonia 122. Total bilirubin 3.3 but LFTs otherwise normal. DBili 0 so possible Gilbert's No history of cirrhosis or ETOH abuse US retroperitoneal duplex showing pulsatile antegrade flow in the portal veins 2nd to CHF. CT showing a small amount of abdominal and pelvic ascites but no abnormalities seen of the liver. Echo showing normal LV with hyperdynamic systolic fxn EF >70%, severely dilated RV with reduced systolic fxn, RV pressure overload significantly elevated RAP. Biatrial enlargement. There is a small mobile echodensity in the RA possibly an eustachian valve. NGT placed and started on lactulose t.i.d. Repeat ammonia better. Clinically patient is improving but more confused today. . Speech evaluation (MBS) showing patient is not safe for oral intake at this time. Continue TF. Repeat swallow study in a few days. Continue PT/OT/ST. (3) Acute on chronic diastolic CHF (congestive heart failure): Code(s): I50.33 - Acute on chronic diastolic (congestive) heart failure Status: Acute Assessment and Plan: CXR showing central congestive change and probable mild bibasilar pulmonary edema, discoid left mid lung atelectasis. BNP > 30,000 Echo as above with right sided failure. Currently on Bumex at home which was continued. Fluid management with HD. Appreciate nephrology input (4) ESRD (end stage renal disease) on dialysis: Code(s): N18.6 - End stage renal disease; Z99.2 - Dependence on renal dialysis Status: Acute Assessment and Plan: Patient with ESRD. Nephrology consulted for inpatient dialysis; appreciate their input HD on MWF but may need extra HD given the above findings. Continue midodrine prn Trend electrolytes (5) Diabetes: Qualifiers: Diabetes mellitus type: type 2 Diabetes mellitus penitentiary insulin use: without penitentiary use Diabetes mellitus complication status: with kidney complications Diabetes mellitus complication detail: with chronic kidney disease Chronic kidney disease stage: on chronic dialysis Qualified Code(s): E11.22 - Type 2 diabetes mellitus with diabetic chronic kidney disease; N18.6 - End stage renal disease; Z99.2 - Dependence on renal dialysis Code(s): E11.9 - Type 2 diabetes mellitus without complications Status: Chronic Assessment and Plan: The patient's blood glucose was reviewed on 07/25 Glucose remains well controlled. Continue AccuCheks covering with sliding scale. Hypoglycemia protocol available as needed. Continue Tube feedings Plan Thrombocytopenia - chronic and stable. Monitor Diet: Not able to start oral feedings. Continue tube feedings. DVT Prophylaxis: Eliquis Code Status: Full code Subjective Date/time seen: 07/25/24 14:28 Interval history: 84yo male with ESRD on HD, CHF, AFib, DM, pHTN and HTN here for alteed mental status. Feeling well. No CP or SOB. No n/v. No abd pain. Exam Narrative: AF 97.7 108/64 55 16 98% ra Gen - NARD currently undergoing HD HEENT - NGT secured Chest - lungs clear anteriorly and in the flanks. Right upper chest tunneled HD catheter. CV - regular Abd - Soft, obese, NT, umbilical hernia that is easily reducible Ext - no significant pedal edema. LUE fistula accessed Neuro - alert but confused. oriented to month and Marcia name. Psych - cooperative and follows commands Skin - Warm and dry Objective Data Vital Signs Vital Signs: Vital Signs - 24 hr 07/24/24 16:00 07/24/24 20:00 07/24/24 20:00 Temperature 97.7 F 97.6 F Pulse Rate 70 77 Respiratory Rate 18 12 Blood Pressure 116/56 L 125/59 L Pulse Oximetry 95 94 Oxygen Delivery Room Air 07/24/24 21:41 07/24/24 23:41 07/25/24 04:00 Temperature 98.7 F 97.6 F Pulse Rate 74 73 Respiratory Rate 12 12 Blood Pressure 117/69 122/57 L Pulse Oximetry 93 94 94 Oxygen Delivery Room Air 07/25/24 07:38 07/25/24 07:38 07/25/24 08:30 Temperature 97.7 F Pulse Rate 67 67 62 Respiratory Rate 18 18 18 Blood Pressure 105/72 Pulse Oximetry 92 98 Oxygen Delivery Room Air 07/25/24 08:47 07/25/24 09:00 07/25/24 09:15 Temperature Pulse Rate 61 56 L 62 Respiratory Rate Blood Pressure 101/67 115/64 118/65 Pulse Oximetry Oxygen Delivery 07/25/24 09:30 07/25/24 09:45 07/25/24 10:00 Temperature Pulse Rate 62 57 L 63 Respiratory Rate Blood Pressure 106/66 114/60 121/66 Pulse Oximetry Oxygen Delivery 07/25/24 10:15 07/25/24 10:30 07/25/24 10:45 Temperature Pulse Rate 67 66 61 Respiratory Rate Blood Pressure 124/61 118/67 108/56 L Pulse Oximetry Oxygen Delivery 07/25/24 11:00 07/25/24 11:15 07/25/24 11:30 Temperature Pulse Rate 58 L 61 66 Respiratory Rate Blood Pressure 93/58 L 101/60 102/58 L Pulse Oximetry Oxygen Delivery 07/25/24 11:45 07/25/24 12:00 07/25/24 12:15 Temperature Pulse Rate 68 62 61 Respiratory Rate Blood Pressure 96/63 L 99/60 L 115/59 L Pulse Oximetry Oxygen Delivery 07/25/24 12:25 07/25/24 12:29 Temperature 97.7 F Pulse Rate 60 55 L Respiratory Rate 16 Blood Pressure 101/61 108/64 Pulse Oximetry 98 Oxygen Delivery Intake/Output Intake/Output: Intake & Output 07/22/24 07/23/24 07/24/24 07/25/24 23:59 23:59 23:59 23:59 Intake Total 50 0 718 309 Output Total 0 1500 1700 Balance 50 -1500 718 -1391 Meds/Results Medications: Active Medications Generic Name Dose Route Start Last Admin Trade Name Freq PRN Reason Stop Dose Admin Acetaminophen 650 mg 07/21/24 12:38 Acetaminophen 325 Mg Tablet PO Q6H PRN Mild Pain (1-3) Or Fever Albuterol 2 puff 07/21/24 12:38 Albuterol Sulfate (*Sp) Aerosol 1 Puff INHALATION Q6HRT PRN sob/wheezing Allopurinol 100 mg 07/21/24 12:50 07/25/24 08:11 Allopurinol 100 Mg Tablet PO 100 mg DAILY CESAR Administration Apixaban 2.5 mg 07/21/24 12:50 07/25/24 08:11 Apixaban 2.5 Mg Tablet PO 2.5 mg Q12HR CESAR Administration Atorvastatin Calcium 10 mg 07/21/24 12:50 07/25/24 08:10 Atorvastatin 10 Mg Tablet PO 10 mg DAILY CESAR Administration Benzonatate 0 mg 07/21/24 12:40 Benzonatate 100 Mg Capsule PO TID PRN Cough Bumetanide 1 mg 07/21/24 17:00 07/25/24 08:07 Bumetanide 1 Mg Tablet PO Not Given BID CESAR Calcitriol 0.25 mcg 07/21/24 13:00 07/25/24 08:13 Calcitriol 0.25 Mcg Capsule PO 0.25 mcg [id number] CESAR Administration Calcium Acetate 1,334 mg 07/21/24 12:00 07/25/24 13:36 Calcium Acetate 667 Mg Tablet PO 1,334 mg TIDWM CESAR Administration Cyanocobalamin 1,000 mcg 07/21/24 12:50 07/25/24 08:13 Cyanocobalamin 1,000 Mcg Tablet PO 1,000 mcg DAILY CESAR Administration Dextrose 12.5 gm 07/21/24 08:12 Dextrose 50% 25 Gm/50 Ml Syringe IV PUSH PRN PRN Hypoglycemia Protocol Dextrose 12.5 gm 07/21/24 12:35 Dextrose 50% 25 Gm/50 Ml Syringe IV PUSH PRN PRN Hypoglycemia Protocol Ferrous Sulfate 650 mg 07/21/24 13:00 07/25/24 08:11 Ferrous Sulfate [address] PO 650 mg Q48HR CESAR Administration Glucagon 1 mg 07/21/24 12:35 Glucagon For Inj 1 Mg Vial IM PRN PRN Hypoglycemia Protocol Glucose 15 gm 07/21/24 12:35 Glucose Oral Gel 15 Gm Of Glucse In 37.5 Gm Tube PO PRN PRN Hypoglycemia Protocol Albumin Human 50 mls @ 999 mls/hr 07/21/24 08:43 Albutein IVPB 08/20/24 08:42 Q10M PRN HYPOTENSION Dextrose 1,000 mls @ 100 mls/hr 07/21/24 12:35 Dextrose 5% 1,000 Ml IVPB PRN PRN Hypoglycemia Protocol Insulin Aspart 4 - 8 units 07/21/24 12:00 07/25/24 13:06 Insulin Aspart (*Bkc) 100 Units/Ml SUB-Q Not Given Q6HR CESAR Protocol Lactulose 20 gm 07/21/24 18:00 07/25/24 13:37 Lactulose 20 Gm/30 Ml Udc PO 20 gm TID CESAR Administration Midodrine 10 mg 07/21/24 12:43 07/25/24 08:10 Midodrine Hcl 10 Mg Tablet PO 10 mg DAILY PRN Administration Hypotension with dialysis Miscellaneous Information 0 each 07/21/24 00:01 07/24/24 21:18 Liraglutide [Victoza 2-Vidal] 0.6 Mg/0.1 Ml = Non Formulary XX 08/20/24 00:00 Not Given CLARIFY CESAR Non-Formulary Medication 1.2 mg 07/22/24 09:00 Liraglutide [Victoza 2-Vidal] SUB-Q 08/21/24 08:59 DAILY CESAR Ondansetron HCl 4 mg 07/21/24 08:12 Ondansetron Inj 4 Mg/2 Ml Vial IV PUSH Q4H PRN Nausea Fluticasone/Salmeterol 2 puff 07/21/24 20:00 07/25/24 07:47 Fluticasone/Salmeterol 115-21 Mcg Inhaler 1 Puff INHALATION 2 puff Q12HRT CESAR Administration Vitamin D 2,000 units 07/21/24 12:50 07/25/24 08:10 Cholecalciferol 1,000 Units Tablet PO 2,000 units DAILY CESAR Administration Radiology Results: ITS Impressions Chest/Abdomen/Pelvis CT 07/21/24 07:04 Impression: Small right pleural effusion. 3 cm indeterminate left renal mass. Further evaluation with ultrasound or pre and postcontrast CT/MR advised. Cholelithiasis. Small amount of abdominopelvic ascites. Umbilical hernia which contains a focal small bowel. Head CT 07/21/24 17:53 IMPRESSION: 1. 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 Arterial/Peripheral Duplex 07/21/24 19:22 IMPRESSION: 1. Pulsatile antegrade flow in the portal veins, likely secondary to congestive heart failure. Modified Barium Swallow 07/24/24 11:57 IMPRESSION: 1. No laryngeal penetration or aspiration. 2. Please refer to the speech therapy report for recommendations. Chest X-Ray 07/25/24 06:10 IMPRESSION: 1. Mild atelectasis in the lower lung zones. 2. Cardiomegaly. Abdomen X-Ray 07/25/24 06:18 IMPRESSION: 1. Nasogastric tube tip in the stomach. Labs Labs: Laboratory Results - last 24 hr 07/24/24 07/24/24 07/25/24 17:50 20:40 05:14 POC Capillary Glucose 171 H 172 H 140 H 07/25/24 13:03 POC Capillary Glucose 117 H
[2024-07-25] MEDS: BUMETANIDE 1 MG TABLET PO (17:03)
[2024-07-25 18:22] LABS: Glucose Point of Care 159 mg/dl (65-105)
[2024-07-26] VITALS (8 sets, daily range): BP systolic 105–131; BP diastolic 45–80; PULSE 60–86; RESP 16–18; TEMP 35.9–37.1; O2SAT 94–99
[2024-07-26] LABS: Glucose Point of Care 167 mg/dl (65-105)
[2024-07-26 06:15] LABS: Hematocrit 41.3 % (42.0-52.0); Hemoglobin 13.2 g/dL (14.0-18.0); Immature Platelet Fraction Pct 4.8 % (0.9-11.2); Mean Corpuscular Hemoglobin 33.2 pg (26-34); Mean Platelet Volume 11.2 fl (7.4-10.4); Platelet Count Result 80 k/mm3 (150-375); Red Blood Count 3.97 M/mm3 (4.6-6.20); White Blood Count 5.5 K/mm3 (4.5-10.0)
[2024-07-26 06:35] LABS: Anion Gap 2 mmol/L (4-12); Blood Urea Nitrogen 34 mg/dL (9-20); Calcium 9.4 mg/dL (8.4-10.2); Carbon Dioxide 30 mmol/L (22-30); Chloride 101 mmol/L (98-107); Estimated CRCL calculation 11 ml/min; Estimated Glomerular Filt Rate 12; Glucose 163 mg/dL (65-110); Sodium 133 mmol/L (137-145)
[2024-07-26] MEDS: FLUTICASONE/SALMETEROL 115-21 MCG INHALER 1 PUFF 2 PUFF INHALATION ×2 (07:59→19:56)
[2024-07-26 08:05] LABS: Glucose Point of Care 165 mg/dl (65-105)
[2024-07-26] MEDS: APIXABAN 2.5 MG TABLET PO ×2 (09:16→21:52)
[2024-07-26] MEDS: BUMETANIDE 1 MG TABLET PO ×2 (09:16→18:19)
[2024-07-26] MEDS: CHOLECALCIFEROL 1,000 UNITS TABLET 2000 UNITS PO (09:16)
[2024-07-26] MEDS: CYANOCOBALAMIN 1,000 MCG TABLET 1000 MCG PO (09:17)
[2024-07-26] MEDS: LACTULOSE 20 GM/30 ML UDC PO ×3 (09:17→18:19)
[2024-07-26] MEDS: ATORVASTATIN 10 MG TABLET PO (09:17)
[2024-07-26] MEDS: allopurinoL 100 MG TABLET PO (09:17)
[2024-07-26] MEDS: CALCIUM ACETATE 667 MG TABLET 1334 MG PO ×3 (09:17→18:19)
[2024-07-26 09:18] LABS: Ammonia 29 umol/L (9-30)
[2024-07-26 12:50] LABS: Glucose Point of Care 171 mg/dl (65-105)
--- NOTE | 2024-07-26 13:47 | P.PNNP_ITS ---
Progress Note: A&P Assessment and Plan (1) End-stage renal disease (ESRD): Code(s): N18.6 - End stage renal disease Status: Chronic Assessment and Plan: * HD was done yesterday. He is due tomorrow. I wi * fluid status looks okay * K, Co2 okay (2) Hyperkalemia: Code(s): E87.5 - Hyperkalemia Status: Resolved Assessment and Plan: * resolved (3) Altered mental status: Qualifiers: Altered mental status type: disorientation Qualified Code(s): R41.0 - Disorientation, unspecified Code(s): R41.82 - Altered mental status, unspecified Status: Acute Assessment and Plan: * Encephalopathy * no evidence of infection/sepsis... * however, mild lactic acidosis noted * pyuria but only a few wbcs. * no culture done yet. * check a culture * imaging reviewed: * CT head: No significant abnormality seen. * CXR negative for PNA. viral PCR negative. * CT chest/abd/pelvis: small right pleural effusion, 3 cm indeterminate left renal mass, cholelithiasis, small amount of abdominopelvic ascites, umbilical hernia which contains a focal small bowel * questionable UTI by UA but no cx done. * elevated ammonia level noted * initiated on lactulose via NG tube * B12, folate, TSH all okay. * his mental status seems to be gradually improving. I discussed with Mrs. Yanez. (4) Hypotension: Code(s): I95.9 - Hypotension, unspecified Status: Chronic Assessment and Plan: * chronic issue at baseline * on midodrine therapy * Blood pressure good today at 129 (5) Anemia: Qualifiers: Anemia type: unspecified type Qualified Code(s): D64.9 - Anemia, unspecified Code(s): D64.9 - Anemia, unspecified Status: Chronic Assessment and Plan: * due to ESRD * hb stable in mid 12 range (6) Diabetes: Qualifiers: Diabetes mellitus type: type 2 Diabetes mellitus correction insulin use: without terminal supervisor use Diabetes mellitus complication status: with kidney co mplications Diabetes mellitus complication detail: with chronic kidney disease Chronic kidney disease stage: on chronic dialysis Qualified Code(s): E11.22 - Type 2 diabetes mellitus with diabetic chronic kidney disease; N18.6 - End stage renal disease; Z99.2 - Dependence on renal dialysis Code(s): E11.9 - Type 2 diabetes mellitus without complications Status: Chronic Assessment and Plan: * follow accu-cheks * glycemic control per hospitalists Subjective Date/time seen: 07/26/24 13:47 Interval history: patient is more awake and interactive today. is in the room. Patient denies chest pain or shortness of breath. Exam Narrative: WDWN in NAD skin no rash Or subcu nodules head ncat lungs clear cor reg no rub abd BS+ nontender and soft ext no edema or cyanosis. Objective Data Vital Signs Vital Signs: Vital Signs - 24 hr 07/25/24 15:24 07/25/24 20:00 07/25/24 20:00 Temperature 98.0 F 98.3 F Pulse Rate 72 70 Respiratory Rate 17 18 Blood Pressure 107/75 101/66 Pulse Oximetry 95 96 Oxygen Delivery Room Air Fraction of Inspired Oxygen 07/26/24 00:00 07/26/24 04:00 07/26/24 07:47 Temperature 97.6 F 97.6 F Pulse Rate 71 70 Respiratory Rate 18 18 Blood Pressure 105/70 120/59 L Pulse Oximetry 97 99 94 Oxygen Delivery Room Air Fraction of Inspired Oxygen 21 07/26/24 08:00 07/26/24 11:20 Temperature 96.6 F L 96.6 F L Pulse Rate 68 68 Respiratory Rate 18 18 Blood Pressure 131/71 129/69 Pulse Oximetry 96 98 Oxygen Delivery Fraction of Inspired Oxygen Intake/Output Intake/Output: Intake & Output 07/23/24 07/24/24 07/25/24 07/26/24 23:59 23:59 23:59 23:59 Intake Total 0 285 331 8543 Output Total 1500 1700 Balance -1500 718 -855 1044 Meds/Results Medications: Active Medications Generic Name Dose Route Start Last Admin Trade Name Freq PRN Reason Stop Dose Admin Acetaminophen 650 mg 07/21/24 12:38 Acetaminophen 325 Mg Tablet PO Q6H PRN Mild Pain (1-3) Or Fever Albuterol 2 puff 07/21/24 12:38 Albuterol Sulfate (*Sp) Aerosol 1 Puff INHALATION Q6HRT PRN sob/wheezing Allopurinol 100 mg 07/21/24 12:50 07/26/24 09:17 Allopurinol 100 Mg Tablet PO 100 mg DAILY CESAR Administration Apixaban 2.5 mg 07/21/24 12:50 07/26/24 09:16 Apixaban 2.5 Mg Tablet PO 2.5 mg Q12HR CESAR Administration Atorvastatin Calcium 10 mg 07/21/24 12:50 07/26/24 09:17 Atorvastatin 10 Mg Tablet PO 10 mg DAILY CESAR Administration Benzonatate 0 mg 07/21/24 12:40 Benzonatate 100 Mg Capsule PO TID PRN Cough Bumetanide 1 mg 07/21/24 17:00 07/26/24 09:16 Bumetanide 1 Mg Tablet PO 1 mg BID CESAR Administration Calcitriol 0.25 mcg 07/21/24 13:00 07/26/24 09:18 Calcitriol 0.25 Mcg Capsule PO Not Given [id number] [facility] Calcium Acetate 1,334 mg 07/21/24 12:00 07/26/24 12:46 Calcium Acetate 667 Mg Tablet PO 1,334 mg TIDWM CESAR Administration Cyanocobalamin 1,000 mcg 07/21/24 12:50 07/26/24 09:17 Cyanocobalamin 1,000 Mcg Tablet PO 1,000 mcg DAILY CESAR Administration Dextrose 12.5 gm 07/21/24 08:12 Dextrose 50% 25 Gm/50 Ml Syringe IV PUSH PRN PRN Hypoglycemia Protocol Dextrose 12.5 gm 07/21/24 12:35 Dextrose 50% 25 Gm/50 Ml Syringe IV PUSH PRN PRN Hypoglycemia Protocol Ferrous Sulfate 650 mg 07/21/24 13:00 07/25/24 08:11 Ferrous Sulfate [address] PO 650 mg Q48HR CESAR Administration Glucagon 1 mg 07/21/24 12:35 Glucagon For Inj 1 Mg Vial IM PRN PRN Hypoglycemia Protocol Glucose 15 gm 07/21/24 12:35 Glucose Oral Gel 15 Gm Of Glucse In 37.5 Gm Tube PO PRN PRN Hypoglycemia Protocol Albumin Human 50 mls @ 999 mls/hr 07/21/24 08:43 Albutein IVPB 08/20/24 08:42 Q10M PRN HYPOTENSION Dextrose 1,000 mls @ 100 mls/hr 07/21/24 12:35 Dextrose 5% 1,000 Ml IVPB PRN PRN Hypoglycemia Protocol Insulin Aspart 4 - 8 units 07/21/24 12:00 07/26/24 12:48 Insulin Aspart (*Bkc) 100 Units/Ml SUB-Q Not Given Q6HR [facility] Protocol Lactulose 20 gm 07/21/24 18:00 07/26/24 12:46 Lactulose 20 Gm/30 Ml Udc PO 20 gm TID CESAR Administration Midodrine 10 mg 07/21/24 12:43 07/25/24 08:10 Midodrine Hcl 10 Mg Tablet PO 10 mg DAILY PRN Administration Hypotension with dialysis Miscellaneous Information 0 each 07/21/24 00:01 07/26/24 05:41 Liraglutide [Victoza 2-Vidal] 0.6 Mg/0.1 Ml = Non Formulary XX 08/20/24 00:00 Not Given CLARIFY CESAR Non-Formulary Medication 1.2 mg 07/22/24 09:00 Liraglutide [Victoza 2-Vidal] SUB-Q 08/21/24 08:59 DAILY CESAR Ondansetron HCl 4 mg 07/21/24 08:12 Ondansetron Inj 4 Mg/2 Ml Vial IV PUSH Q4H PRN Nausea Fluticasone/Salmeterol 2 puff 07/21/24 20:00 07/26/24 07:59 Fluticasone/Salmeterol 115-21 Mcg Inhaler 1 Puff INHALATION 2 puff Q12HRT CESAR Administration Vitamin D 2,000 units 07/21/24 12:50 07/26/24 09:16 Cholecalciferol 1,000 Units Tablet PO 2,000 units DAILY CESAR Administration Radiology Results: ITS Impressions Chest/Abdomen/Pelvis CT 07/21/24 07:04 Impression: Small right pleural effusion. 3 cm indeterminate left renal mass. Further evaluation with ultrasound or pre and postcontrast CT/MR advised. Cholelithiasis. Small amount of abdominopelvic ascites. Umbilical hernia which contains a focal small bowel. Head CT 07/21/24 17:53 IMPRESSION: 1. 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 Arterial/Peripheral Duplex 07/21/24 19:22 IMPRESSION: 1. Pulsatile antegrade flow in the portal veins, likely secondary to congestive heart failure. Modified Barium Swallow 07/24/24 11:57 IMPRESSION: 1. No laryngeal penetration or aspiration. 2. Please refer to the speech therapy report for recommendations. Chest X-Ray 07/25/24 06:10 IMPRESSION: 1. Mild atelectasis in the lower lung zones. 2. Cardiomegaly. Abdomen X-Ray 07/25/24 06:18 IMPRESSION: 1. Nasogastric tube tip in the stomach. Labs Labs: Laboratory Results - last 24 hr 07/25/24 07/25/24 07/26/24 18:18 23:56 05:14 WBC RBC Hgb Hct MCV MCH MCHC RDW Plt Count MPV % Immature Plt Fraction Sodium Potassium Chloride Carbon Dioxide Anion Gap BUN Creatinine Estim Creat Clear Calc Estimated GFR Glucose POC Capillary Glucose 159 H 167 H 165 H Calcium Ammonia 07/26/24 07/26/24 07/26/24 06:02 08:13 12:47 WBC 5.5 RBC 3.97 L Hgb 13.2 L Hct 41.3 L MCV 104.0 H MCH 33.2 MCHC 32.0 RDW 18.0 H Plt Count 80 L MPV 11.2 H % Immature Plt Fraction 4.8 Sodium 133 L Potassium 4.0 Chloride 101 Carbon Dioxide 30 Anion Gap 2 L BUN 34 H Creatinine 5.40 H Estim Creat Clear Calc 11 Estimated GFR 12 L Glucose 163 H POC Capillary Glucose 171 H Calcium 9.4 Ammonia 29
--- NOTE | 2024-07-26 13:52 | PM.IMPN ---
Progress Note: A&P Assessment and Plan (1) Altered mental status: Qualifiers: Altered mental status type: disorientation Qualified Code(s): R41.0 - Disorientation, unspecified Code(s): R41.82 - Altered mental status, unspecified Status: Acute Assessment and Plan: Patient presents with AMS. He did not meet SIRS criteria but lactic 2.1 ->2.5. CT head showing no significant abnormalities. Can not obtain MRI brain but repeat CT brain showing no acute findings. CXR showing central congestive changes and pulmonary edema. Viral PCR negative. UCx negative. BCx NGTD CT chest/abd/pelvis showing small right pleural effusion, 3cm indeterminate left renal mass, cholelithiasis, small amount of abdominopelvic ascites and umbilical hernia which contains a focal small bowel (easily reducible) Ammonia 122. ABG 7.48/31/69 on RA. TSH, folate and B12 normal. Troponin flat with 0.028 -> 0.031 Suspect AMS secondary to ammonia levels. Ammonia 29 now. Treated with lactulose and mental status improved (2) Increased ammonia level: Code(s): R79.89 - Other specified abnormal findings of blood chemistry Status: Acute Assessment and Plan: Ammonia 122. Total bilirubin 3.3 but LFTs otherwise normal. DBili 0 so possible Gilbert's No history of cirrhosis or ETOH abuse US retroperitoneal duplex showing pulsatile antegrade flow in the portal veins 2nd to CHF. CT showing a small amount of abdominal and pelvic ascites but no abnormalities seen of the liver. Echo showing normal LV with hyperdynamic systolic fxn EF >70%, severely dilated RV with reduced systolic fxn, RV pressure overload significantly elevated RAP. Biatrial enlargement. There is a small mobile echodensity in the RA possibly an eustachian valve. NGT placed and started on lactulose t.i.d. Repeat ammonia better. Clinically patient is improved Speech evaluation (MBS) showing patient is not safe for oral intake at this time. Continue TF. ST to evaluate today Continue PT/OT/ST. (3) Acute on chronic diastolic CHF (congestive heart failure): Code(s): I50.33 - Acute on chronic diastolic (congestive) heart failure Status: Acute Assessment and Plan: CXR showing central congestive change and probable mild bibasilar pulmonary edema, discoid left mid lung atelectasis. BNP > 30,000 Echo as above with right sided failure. Currently on Bumex at home which was continued. Fluid management with HD. Appreciate nephrology input (4) ESRD (end stage renal disease) on dialysis: Code(s): N18.6 - End stage renal disease; Z99.2 - Dependence on renal dialysis Status: Acute Assessment and Plan: Patient with ESRD. Nephrology consulted for inpatient dialysis; appreciate their input HD on MWF but may need extra HD given the above findings. Had HD Friday due to the holiday Continue midodrine prn Trend electrolytes (5) Diabetes: Qualifiers: Diabetes mellitus type: type 2 Diabetes mellitus halfway insulin use: without halfway use Diabetes mellitus complication status: with kidney complications Diabetes mellitus complication detail: with chronic kidney disease Chronic kidney disease stage: on chronic dialysis Qualified Code(s): E11.22 - Type 2 diabetes mellitus with diabetic chronic kidney disease; N18.6 - End stage renal disease; Z99.2 - Dependence on renal dialysis Code(s): E11.9 - Type 2 diabetes mellitus without complications Status: Chronic Assessment and Plan: The patient's blood glucose was reviewed on 07/26 Glucose remains well controlled. Continue AccuCheks covering with sliding scale. Hypoglycemia protocol available as needed. Continue Tube feedings Plan Thrombocytopenia - chronic and stable. Monitor Diet: Not able to start oral feedings. Continue tube feedings. DVT Prophylaxis: Eliquis Code Status: Full code Subjective Date/time seen: 07/26/24 13:52 Interval history: 84yo male with ESRD on HD, CHF, AFib, DM, pHTN and HTN here for altered mental status. Feels well. Family in the room. No CP or SOB. No n/v. Exam Narrative: AF 96.6 129/69 68 18 98% ra Gen - NARD siting up in the chair HEENT - NGT secured Chest - bibasilar crackles. Right upper chest tunneled HD catheter. CV - irregular Abd - Soft, obese, NT Ext - no significant pedal edema. LUE fistula noted Neuro - alert and oriented x4. Psych - cooperative and follows commands Skin - Warm and dry Objective Data Vital Signs Vital Signs: Vital Signs - 24 hr 07/25/24 15:24 07/25/24 20:00 07/25/24 20:00 Temperature 98.0 F 98.3 F Pulse Rate 72 70 Respiratory Rate 17 18 Blood Pressure 107/75 101/66 Pulse Oximetry 95 96 Oxygen Delivery Room Air Fraction of Inspired Oxygen 07/26/24 00:00 07/26/24 04:00 07/26/24 07:47 Temperature 97.6 F 97.6 F Pulse Rate 71 70 Respiratory Rate 18 18 Blood Pressure 105/70 120/59 L Pulse Oximetry 97 99 94 Oxygen Delivery Room Air Fraction of Inspired Oxygen 21 07/26/24 08:00 07/26/24 11:20 Temperature 96.6 F L 96.6 F L Pulse Rate 68 68 Respiratory Rate 18 18 Blood Pressure 131/71 129/69 Pulse Oximetry 96 98 Oxygen Delivery Fraction of Inspired Oxygen Intake/Output Intake/Output: Intake & Output 07/23/24 07/24/24 07/25/24 07/26/24 23:59 23:59 23:59 23:59 Intake Total 0 550 570 0344 Output Total 1500 1700 Balance -1500 718 -855 1044 Meds/Results Medications: Active Medications Generic Name Dose Route Start Last Admin Trade Name Freq PRN Reason Stop Dose Admin Acetaminophen 650 mg 07/21/24 12:38 Acetaminophen 325 Mg Tablet PO Q6H PRN Mild Pain (1-3) Or Fever Albuterol 2 puff 07/21/24 12:38 Albuterol Sulfate (*Sp) Aerosol 1 Puff INHALATION Q6HRT PRN sob/wheezing Allopurinol 100 mg 07/21/24 12:50 07/26/24 09:17 Allopurinol 100 Mg Tablet PO 100 mg DAILY CESAR Administration Apixaban 2.5 mg 07/21/24 12:50 07/26/24 09:16 Apixaban 2.5 Mg Tablet PO 2.5 mg Q12HR CESAR Administration Atorvastatin Calcium 10 mg 07/21/24 12:50 07/26/24 09:17 Atorvastatin 10 Mg Tablet PO 10 mg DAILY CESAR Administration Benzonatate 0 mg 07/21/24 12:40 Benzonatate 100 Mg Capsule PO TID PRN Cough Bumetanide 1 mg 07/21/24 17:00 07/26/24 09:16 Bumetanide 1 Mg Tablet PO 1 mg BID CESAR Administration Calcitriol 0.25 mcg 07/21/24 13:00 07/26/24 09:18 Calcitriol 0.25 Mcg Capsule PO Not Given [id number]@[id number] [facility] Calcium Acetate 1,334 mg 07/21/24 12:00 07/26/24 12:46 Calcium Acetate 667 Mg Tablet PO 1,334 mg TIDWM CESAR Administration Cyanocobalamin 1,000 mcg 07/21/24 12:50 07/26/24 09:17 Cyanocobalamin 1,000 Mcg Tablet PO 1,000 mcg DAILY CESAR Administration Dextrose 12.5 gm 07/21/24 08:12 Dextrose 50% 25 Gm/50 Ml Syringe IV PUSH PRN PRN Hypoglycemia Protocol Dextrose 12.5 gm 07/21/24 12:35 Dextrose 50% 25 Gm/50 Ml Syringe IV PUSH PRN PRN Hypoglycemia Protocol Ferrous Sulfate 650 mg 07/21/24 13:00 07/25/24 08:11 Ferrous Sulfate [address] PO 650 mg Q48HR CESAR Administration Glucagon 1 mg 07/21/24 12:35 Glucagon For Inj 1 Mg Vial IM PRN PRN Hypoglycemia Protocol Glucose 15 gm 07/21/24 12:35 Glucose Oral Gel 15 Gm Of Glucse In 37.5 Gm Tube PO PRN PRN Hypoglycemia Protocol Albumin Human 50 mls @ 999 mls/hr 07/21/24 08:43 Albutein IVPB 08/20/24 08:42 Q10M PRN HYPOTENSION Dextrose 1,000 mls @ 100 mls/hr 07/21/24 12:35 Dextrose 5% 1,000 Ml IVPB PRN PRN Hypoglycemia Protocol Albumin Human 50 mls @ 999 mls/hr 07/26/24 13:48 Albutein IVPB 07/27/24 13:47 Q10M PRN HYPOTENSION Sodium Chloride 1,000 mls @ 999 mls/hr 07/26/24 13:48 Normal Saline Iv IV CONT 07/26/24 14:48 .Q1H1M ONE Sodium Chloride 1,000 mls @ 0 mls/hr 07/26/24 13:48 Normal Saline Iv IV CONT 07/26/24 13:49 .Q0M ONE Per Protocol Insulin Aspart 4 - 8 units 07/21/24 12:00 07/26/24 12:48 Insulin Aspart (*Bkc) 100 Units/Ml SUB-Q Not Given Q6HR CESAR Protocol Lactulose 20 gm 07/21/24 18:00 07/26/24 12:46 Lactulose 20 Gm/30 Ml Udc PO 20 gm TID CESAR Administration Midodrine 10 mg 07/21/24 12:43 07/25/24 08:10 Midodrine Hcl 10 Mg Tablet PO 10 mg DAILY PRN Administration Hypotension with dialysis Miscellaneous Information 0 each 07/21/24 00:01 07/26/24 05:41 Liraglutide [Victoza 2-Vidal] 0.6 Mg/0.1 Ml = Non Formulary XX 08/20/24 00:00 Not Given CLARIFY CESAR Non-Formulary Medication 1.2 mg 07/22/24 09:00 Liraglutide [Victoza 2-Vidal] SUB-Q 08/21/24 08:59 DAILY CESAR Ondansetron HCl 4 mg 07/21/24 08:12 Ondansetron Inj 4 Mg/2 Ml Vial IV PUSH Q4H PRN Nausea Fluticasone/Salmeterol 2 puff 07/21/24 20:00 07/26/24 07:59 Fluticasone/Salmeterol 115-21 Mcg Inhaler 1 Puff INHALATION 2 puff Q12HRT CESAR Administration Vitamin D 2,000 units 07/21/24 12:50 07/26/24 09:16 Cholecalciferol 1,000 Units Tablet PO 2,000 units DAILY CESAR Administration Radiology Results: ITS Impressions Chest/Abdomen/Pelvis CT 07/21/24 07:04 Impression: Small right pleural effusion. 3 cm indeterminate left renal mass. Further evaluation with ultrasound or pre and postcontrast CT/MR advised. Cholelithiasis. Small amount of abdominopelvic ascites. Umbilical hernia which contains a focal small bowel. Head CT 07/21/24 17:53 IMPRESSION: 1. 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 Arterial/Peripheral Duplex 07/21/24 19:22 IMPRESSION: 1. Pulsatile antegrade flow in the portal veins, likely secondary to congestive heart failure. Modified Barium Swallow 07/24/24 11:57 IMPRESSION: 1. No laryngeal penetration or aspiration. 2. Please refer to the speech therapy report for recommendations. Chest X-Ray 07/25/24 06:10 IMPRESSION: 1. Mild atelectasis in the lower lung zones. 2. Cardiomegaly. Abdomen X-Ray 07/25/24 06:18 IMPRESSION: 1. Nasogastric tube tip in the stomach. Labs Labs: Laboratory Results - last 24 hr 07/25/24 07/25/24 07/26/24 18:18 23:56 05:14 WBC RBC Hgb Hct MCV MCH MCHC RDW Plt Count MPV % Immature Plt Fraction Sodium Potassium Chloride Carbon Dioxide Anion Gap BUN Creatinine Estim Creat Clear Calc Estimated GFR Glucose POC Capillary Glucose 159 H 167 H 165 H Calcium Ammonia 07/26/24 07/26/24 07/26/24 06:02 08:13 12:47 WBC 5.5 RBC 3.97 L Hgb 13.2 L Hct 41.3 L MCV 104.0 H MCH 33.2 MCHC 32.0 RDW 18.0 H Plt Count 80 L MPV 11.2 H % Immature Plt Fraction 4.8 Sodium 133 L Potassium 4.0 Chloride 101 Carbon Dioxide 30 Anion Gap 2 L BUN 34 H Creatinine 5.40 H Estim Creat Clear Calc 11 Estimated GFR 12 L Glucose 163 H POC Capillary Glucose 171 H Calcium 9.4 Ammonia 29
--- NOTE | 2024-07-26 14:13 | PCSTNOTE ---
[facility] [place] ordered this afternoon however Radiology has scheduling conflict so it cannot be completed until tomorrow morning 07/27.
[2024-07-26 18:54] LABS: Glucose Point of Care 148 mg/dl (65-105)
[2024-07-27] VITALS (24 sets, daily range): BP systolic 92–148; BP diastolic 45–73; PULSE 59–114; RESP 12–18; TEMP 35.8–37; O2SAT 94–100
[2024-07-27 00:20] LABS: Glucose Point of Care 187 mg/dl (65-105)
[2024-07-27 06:26] LABS: Hematocrit 42.4 % (42.0-52.0); Hemoglobin 13.3 g/dL (14.0-18.0); Mean Corpuscular HGB Conc 31.4 g/dl (32-36); Mean Corpuscular Hemoglobin 32.6 pg (26-34); Mean Corpuscular Volume 103.9 fl (80-100); Mean Platelet Volume 11.3 fl (7.4-10.4); Platelet Count Result 77 k/mm3 (150-375); Red Blood Count 4.08 M/mm3 (4.6-6.20); Red Cell Distribution Width 17.9 % (11.5-14.5); White Blood Count 5.1 K/mm3 (4.5-10.0)
[2024-07-27 06:45] LABS: Anion Gap 6 mmol/L (4-12); Blood Urea Nitrogen 50 mg/dL (9-20); Calcium 10.2 mg/dL (8.4-10.2); Carbon Dioxide 29 mmol/L (22-30); Chloride 101 mmol/L (98-107); Estimated CRCL calculation 9 ml/min; Estimated Glomerular Filt Rate 9; Glucose 172 mg/dL (65-110); Potassium 4.2 mmol/L (3.4-5.0); Sodium 136 mmol/L (137-145)
--- NOTE | 2024-07-27 08:00 | PC.NURSE ---
To Radiology for MBS.
--- NOTE | 2024-07-27 08:15 | PC.NURSE ---
Returned to room from [facility] [place].
--- NOTE | 2024-07-27 08:20 | PC.NURSE ---
To Dialysis per hospital bed.
[2024-07-27] MEDS: MIDODRINE HCL 10 MG TABLET PO ×2 (09:01→09:09)
--- NOTE | 2024-07-27 09:13 | P.PNNP_ITS ---
Progress Note: A&P Assessment and Plan (1) End-stage renal disease (ESRD): Code(s): N18.6 - End stage renal disease Status: Chronic Assessment and Plan: * HD is underway * fluid status looks okay * Removing 1-2 L as tolerated * K, Co2 okay (2) Hyperkalemia: Code(s): E87.5 - Hyperkalemia Status: Resolved Assessment and Plan: * resolved (3) Altered mental status: Qualifiers: Altered mental status type: disorientation Qualified Code(s): R41.0 - Disorientation, unspecified Code(s): R41.82 - Altered mental status, unspecified Status: Acute Assessment and Plan: * Encephalopathy * no evidence of infection/sepsis... * however, mild lactic acidosis noted * pyuria but only a few wbcs. * no culture done yet. * check a culture * imaging reviewed: * CT head: No significant abnormality seen. * CXR negative for PNA. viral PCR negative. * CT chest/abd/pelvis: small right pleural effusion, 3 cm indeterminate left renal mass, cholelithiasis, small amount of abdominopelvic ascites, umbilical hernia which contains a focal small bowel * questionable UTI by UA but no cx done. * elevated ammonia level noted * initiated on lactulose via NG tube * B12, folate, TSH all okay. * Very slowly but gradually improving mental status (4) Hypotension: Code(s): I95.9 - Hypotension, unspecified Status: Chronic Assessment and Plan: * chronic issue at baseline * on midodrine therapy * Blood pressure good today at 110 (5) Anemia: Qualifiers: Anemia type: unspecified type Qualified Code(s): D64.9 - Anemia, unspecified Code(s): D64.9 - Anemia, unspecified Status: Chronic Assessment and Plan: * due to ESRD * hb stable in mid 12 range (6) Diabetes: Qualifiers: Diabetes mellitus type: type 2 Diabetes mellitus prison insulin use: without buttermaker use Diabetes mellitus complication status: with kidney complications Diabetes mellitus complication detail: with chronic kidney disease Chronic kidney disease stage: on chronic dialysis Qualified Code(s): E11.22 - Type 2 diabetes mellitus with diabetic chronic kidney disease; N18.6 - End stage renal disease; Z99.2 - Dependence on renal dialysis Code(s): E11.9 - Type 2 diabetes mellitus without complications Status: Chronic Assessment and Plan: * follow accu-cheks * glycemic control per hospitalists Subjective Date/time seen: 07/27/24 09:13 Interval history: Patient feels okay today. He is on dialysis now and tolerating well. He was seen at 8:50 a.m. Exam Narrative: WDWN in NAD skin no rash Or subcu nodules head ncat lungs clear bilaterally cor reg no rub abd BS+ without tenderness ext no edema Objective Data Vital Signs Vital Signs: Vital Signs - 24 hr 07/26/24 11:20 07/26/24 16:00 07/26/24 20:00 Temperature 96.6 F L 98.8 F Pulse Rate 68 86 Respiratory Rate 18 18 Blood Pressure 129/69 111/45 L Pulse Oximetry 98 98 96 Oxygen Delivery Room Air 07/26/24 20:00 07/26/24 20:00 07/26/24 21:08 Temperature 97.7 F Pulse Rate 60 74 Respiratory Rate 18 16 Blood Pressure 118/80 Pulse Oximetry 99 Oxygen Delivery Room Air 07/27/24 00:13 07/27/24 04:06 Temperature 98.1 F 98.1 F Pulse Rate 87 114 H Respiratory Rate 16 18 Blood Pressure 99/64 L 110/58 L Pulse Oximetry 97 94 Oxygen Delivery Intake/Output Intake/Output: Intake & Output 07/24/24 07/25/24 07/26/24 07/27/24 23:59 23:59 23:59 23:59 Intake Total 130 521 7120 390 Output Total 1700 Balance 718 -855 2366 390 Meds/Results Medications: Active Medications Generic Name Dose Route Start Last Admin Trade Name Freq PRN Reason Stop Dose Admin Acetaminophen 650 mg 07/21/24 12:38 Acetaminophen 325 Mg Tablet PO Q6H PRN Mild Pain (1-3) Or Fever Albuterol 2 puff 07/21/24 12:38 Albuterol Sulfate (*Sp) Aerosol 1 Puff INHALATION Q6HRT PRN sob/wheezing Allopurinol 100 mg 07/21/24 12:50 07/26/24 09:17 Allopurinol 100 Mg Tablet PO 100 mg DAILY CESAR Administration Apixaban 2.5 mg 07/21/24 12:50 07/26/24 21:52 Apixaban 2.5 Mg Tablet PO 2.5 mg Q12HR CESAR Administration Atorvastatin Calcium 10 mg 07/21/24 12:50 07/26/24 09:17 Atorvastatin 10 Mg Tablet PO 10 mg DAILY CESAR Administration Benzonatate 0 mg 07/21/24 12:40 Benzonatate 100 Mg Capsule PO TID PRN Cough Bumetanide 1 mg 07/21/24 17:00 07/26/24 18:19 Bumetanide 1 Mg Tablet PO 1 mg BID CESAR Administration Calcitriol 0.25 mcg 07/21/24 13:00 07/26/24 09:18 Calcitriol 0.25 Mcg Capsule PO Not Given [email or web address] [facility] Calcium Acetate 1,334 mg 07/21/24 12:00 07/26/24 18:19 Calcium Acetate 667 Mg Tablet PO 1,334 mg TIDWM CESAR Administration Cyanocobalamin 1,000 mcg 07/21/24 12:50 07/26/24 09:17 Cyanocobalamin 1,000 Mcg Tablet PO 1,000 mcg DAILY CESAR Administration Dextrose 12.5 gm 07/21/24 08:12 Dextrose 50% 25 Gm/50 Ml Syringe IV PUSH PRN PRN Hypoglycemia Protocol Dextrose 12.5 gm 07/21/24 12:35 Dextrose 50% 25 Gm/50 Ml Syringe IV PUSH PRN PRN Hypoglycemia Protocol Ferrous Sulfate 650 mg 07/21/24 13:00 07/25/24 08:11 Ferrous Sulfate [address] PO 650 mg Q48HR CESAR Administration Glucagon 1 mg 07/21/24 12:35 Glucagon For Inj 1 Mg Vial IM PRN PRN Hypoglycemia Protocol Glucose 15 gm 07/21/24 12:35 Glucose Oral Gel 15 Gm Of Glucse In 37.5 Gm Tube PO PRN PRN Hypoglycemia Protocol Albumin Human 50 mls @ 999 mls/hr 07/21/24 08:43 Albutein IVPB 08/20/24 08:42 Q10M PRN HYPOTENSION Dextrose 1,000 mls @ 100 mls/hr 07/21/24 12:35 Dextrose 5% 1,000 Ml IVPB PRN PRN Hypoglycemia Protocol Albumin Human 50 mls @ 999 mls/hr 07/26/24 13:48 Albutein IVPB 07/27/24 13:47 Q10M PRN HYPOTENSION Insulin Aspart 4 - 8 units 07/21/24 12:00 07/27/24 05:41 Insulin Aspart (*Bkc) 100 Units/Ml SUB-Q Not Given Q6HR [facility] Protocol Lactulose 20 gm 07/21/24 18:00 07/26/24 18:19 Lactulose 20 Gm/30 Ml Udc PO 20 gm TID CESAR Administration Midodrine 10 mg 07/21/24 12:43 07/27/24 09:09 Midodrine Hcl 10 Mg Tablet PO 10 mg DAILY PRN Administration Hypotension with dialysis Miscellaneous Information 0 each 07/21/24 00:01 07/26/24 05:41 Liraglutide [Victoza 2-Vidal] 0.6 Mg/0.1 Ml = Non Formulary XX 08/20/24 00:00 Not Given CLARIFY CESAR Non-Formulary Medication 1.2 mg 07/22/24 09:00 Liraglutide [Victoza 2-Vidal] SUB-Q 08/21/24 08:59 DAILY [facility] Ondansetron HCl 4 mg 07/21/24 08:12 Ondansetron Inj 4 Mg/2 Ml Vial IV PUSH Q4H PRN Nausea Fluticasone/Salmeterol 2 puff 07/21/24 20:00 07/26/24 19:56 Fluticasone/Salmeterol 115-21 Mcg Inhaler 1 Puff INHALATION 2 puff Q12HRT [facility] Administration Vitamin D 2,000 units 07/21/24 12:50 07/26/24 09:16 Cholecalciferol 1,000 Units Tablet PO 2,000 units DAILY CESAR Administration Radiology Results: ITS Impressions Chest/Abdomen/Pelvis CT 07/21/24 07:04 Impression: Small right pleural effusion. 3 cm indeterminate left renal mass. Further evaluation with ultrasound or pre and postcontrast CT/MR advised. Cholelithiasis. Small amount of abdominopelvic ascites. Umbilical hernia which contains a focal small bowel. Head CT 07/21/24 17:53 IMPRESSION: 1. 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 Arterial/Peripheral Duplex 07/21/24 19:22 IMPRESSION: 1. Pulsatile antegrade flow in the portal veins, likely secondary to congestive heart failure. Chest X-Ray 07/25/24 06:10 IMPRESSION: 1. Mild atelectasis in the lower lung zones. 2. Cardiomegaly. Abdomen X-Ray 07/26/24 17:36 IMPRESSION: NG tube, in good position. Modified Barium Swallow 07/27/24 08:21 IMPRESSION: 1. No laryngeal penetration or aspiration. 2. Please refer to the speech therapy report for recommendations. Labs Labs: Laboratory Results - last 24 hr 07/26/24 07/26/24 07/26/24 08:13 12:47 18:52 WBC RBC Hgb Hct MCV MCH MCHC RDW Plt Count MPV Sodium Potassium Chloride Carbon Dioxide Anion Gap BUN Creatinine Estim Creat Clear Calc Estimated GFR Glucose POC Capillary Glucose 171 H 148 H Calcium Ammonia 29 07/27/24 07/27/24 00:16 06:19 WBC 5.1 RBC 4.08 L Hgb 13.3 L Hct 42.4 MCV 103.9 H MCH 32.6 MCHC 31.4 L RDW 17.9 H Plt Count 77 L MPV 11.3 H Sodium 136 L Potassium 4.2 Chloride 101 Carbon Dioxide 29 Anion Gap 6 BUN 50 H D Creatinine 6.80 H Estim Creat Clear Calc 9 Estimated GFR 9 L Glucose 172 H POC Capillary Glucose 187 H Calcium 10.2 Ammonia
--- NOTE | 2024-07-27 10:20 | PCOTNOTE ---
Patient out of the room at this time. Patient is in dialysis.
--- NOTE | 2024-07-27 10:40 | PCNFU ---
Nutrition Follow-Up Complete: Inadequate energy intake related to NPO status as evidenced by current diet orders Goal: Meet estimated needs Advance diet via PO when able to Patient is progressing towards goal. Pt current nutrition is Renal Dialysis with Nepro at BID. Last recorded weight is 94.9 kg, down from 102 kg. Bowel Motility: +BM reported 07/25 Labs Reviewed: Glu 172, BUN 50, GFR 9, Cr 6.8 Meds Noted: Bumex, Vit D, PhosLo, Vit B 12, Lipitor, Eliquis Skin: WNL Additional Notes: Patient had MBS today-recommending regular diet with thin liquids. Diet orders changes to Renal Dialysis diet with Nepro shakes BID. Agree with diet orders. Monitor tube feeding start, tolerance, wt, labs. Follow up every 5 days.
--- NOTE | 2024-07-27 10:42 | PCSTNOTE ---
Please refer to the Modified Barium Swallow Evaluation in the EMR.
[2024-07-27 12:34] LABS: Glucose Point of Care 172 mg/dl (65-105)
--- NOTE | 2024-07-27 13:25 | PC.NURSE ---
Return to room per hospital bed from Dialysis.
[2024-07-27 13:44] LABS: Glucose Point of Care 148 mg/dl (65-105)
[2024-07-27] MEDS: allopurinoL 100 MG TABLET PO (13:44)
[2024-07-27] MEDS: FERROUS SULFATE 325 MG TABLET DR 650 MG PO (13:44)
[2024-07-27] MEDS: CALCIUM ACETATE 667 MG TABLET 1334 MG PO ×2 (13:44→17:02)
[2024-07-27] MEDS: APIXABAN 2.5 MG TABLET PO ×2 (13:45→20:45)
[2024-07-27] MEDS: BUMETANIDE 1 MG TABLET PO ×2 (13:45→17:02)
[2024-07-27] MEDS: ATORVASTATIN 10 MG TABLET PO (13:45)
[2024-07-27] MEDS: CHOLECALCIFEROL 1,000 UNITS TABLET 2000 UNITS PO (13:45)
[2024-07-27] MEDS: CYANOCOBALAMIN 1,000 MCG TABLET 1000 MCG PO (13:46)
[2024-07-27] MEDS: LACTULOSE 20 GM/30 ML UDC PO ×2 (13:48→17:02)
--- NOTE | 2024-07-27 17:31 | PM.IMPN ---
Progress Note: A&P Assessment and Plan (1) Altered mental status: Qualifiers: Altered mental status type: disorientation Qualified Code(s): R41.0 - Disorientation, unspecified Code(s): R41.82 - Altered mental status, unspecified Status: Acute Assessment and Plan: Patient presents with AMS. He did not meet SIRS criteria but lactic elevated to 2.5 CT head showing no significant abnormalities. Can not obtain MRI brain but repeat CT brain showing no acute findings. CXR showing central congestive changes and pulmonary edema. Viral PCR negative. UCx negative. BCx negative CT chest/abd/pelvis showing small right pleural effusion, 3cm indeterminate left renal mass, cholelithiasis, small amount of abdominopelvic ascites and umbilical hernia which contains a focal small bowel (easily reducible) Ammonia 122. ABG 7.48/ on RA. TSH, folate and B12 normal. Troponin flat with 0.028 -> 0.031 Suspect AMS secondary to ammonia levels. Treated with lactulose and mental status improved (2) Increased ammonia level: Code(s): R79.89 - Other specified abnormal findings of blood chemistry Status: Acute Assessment and Plan: Ammonia 122. Total bilirubin 3.3 but LFTs otherwise normal. DBili 1.1. Tbili trended down. TBili has been elevated in the past No history of cirrhosis or ETOH abuse US retroperitoneal duplex showing pulsatile antegrade flow in the portal veins 2nd to CHF. CT showing a small amount of abdominal and pelvic ascites but no abnormalities seen of the liver. Echo showing normal LV with hyperdynamic systolic fxn EF >70%, severely dilated RV with reduced systolic fxn, RV pressure overload significantly elevated RAP. Biatrial enlargement. There is a small mobile echodensity in the RA possibly an eustachian valve. (BCx negative) NGT placed and started on lactulose t.i.d. Patient's mental status improved with treatment Etiology of elevated ammonia level unclear. (3) Dysphagia: Code(s): R13.10 - Dysphagia, unspecified Status: Acute Assessment and Plan: Mental status improved but had persistent dysphagia. Since mental status better today, he had repeat speech evaluation (MBS) showing patient is safe for oral intake at this time. Remove NGT and start oral diet. Continue PT/OT/ST. (4) Acute on chronic diastolic CHF (congestive heart failure): Code(s): I50.33 - Acute on chronic diastolic (congestive) heart failure Status: Acute Assessment and Plan: CXR showing central congestive change and probable mild bibasilar pulmonary edema, discoid left mid lung atelectasis. BNP > 30,000 Echo as above with right sided failure. Currently on Bumex at home which was continued. Fluid management with HD. Appreciate nephrology input (5) ESRD (end stage renal disease) on dialysis: Code(s): N18.6 - End stage renal disease; Z99.2 - Dependence on renal dialysis Status: Acute Assessment and Plan: Patient with ESRD. Nephrology consulted for inpatient dialysis; appreciate their input HD on MWF but may need extra HD given the above echo findings. Had HD Friday due to the holiday Continue midodrine prn Trend electrolytes (6) Diabetes: Qualifiers: Diabetes mellitus type: type 2 Diabetes mellitus lobsterman insulin use: without lobsterman use Diabetes mellitus complication status: with kidney complications Diabetes mellitus complication detail: with chronic kidney disease Chronic kidney disease stage: on chronic dialysis Qualified Code(s): E11.22 - Type 2 diabetes mellitus with diabetic chronic kidney disease; N18.6 - End stage renal disease; Z99.2 - Dependence on renal dialysis Code(s): E11.9 - Type 2 diabetes mellitus without complications Status: Chronic Assessment and Plan: The patient's blood glucose was reviewed on 07/27 Glucose remains well controlled. Continue AccuCheks covering with sliding scale. Hypoglycemia protocol available as needed. Monitor Plan Thrombocytopenia - chronic and stable. Monitor Diet: oral diet started today. DVT Prophylaxis: Eliquis Code Status: Full code Disp - okay to discharge when okay to go back to SNF Subjective Date/time seen: 07/27/24 17:31 Interval history: 84yo male with ESRD on HD, CHF, AFib, DM, pHTN and HTN here for altered mental status. No CP or SOB. No n/v. Exam Narrative: AF 96.5 123/45 86 18 100% ra Gen - NARD undergoing HD. HEENT - NGT secured Chest - lungs clear anteriorly. Right upper chest dialysis cath CV - RRR S1/S2 Abd - Soft, obese, NT Ext - no significant pedal edema. LUE fistula accessed Neuro - alert and appropriate Skin - Warm and dry Objective Data Vital Signs Vital Signs: Vital Signs - 24 hr 07/26/24 20:00 07/26/24 20:00 07/26/24 20:00 Temperature Pulse Rate 60 Respiratory Rate 18 Blood Pressure Pulse Oximetry 96 Oxygen Delivery Room Air Room Air 07/26/24 21:08 07/27/24 00:13 07/27/24 04:06 Temperature 97.7 F 98.1 F 98.1 F Pulse Rate 74 87 114 H Respiratory Rate 16 16 18 Blood Pressure 118/80 99/64 L 110/58 L Pulse Oximetry 99 97 94 Oxygen Delivery 07/27/24 08:00 07/27/24 08:00 07/27/24 08:40 Temperature 98.1 F 97.5 F L Pulse Rate 86 72 Respiratory Rate 18 16 Blood Pressure 121/66 116/71 Pulse Oximetry 98 97 Oxygen Delivery Room Air 07/27/24 08:53 07/27/24 09:00 07/27/24 09:15 Temperature Pulse Rate 70 68 67 Respiratory Rate Blood Pressure 114/61 92/53 L 118/73 Pulse Oximetry Oxygen Delivery 07/27/24 09:30 07/27/24 09:45 07/27/24 10:00 Temperature Pulse Rate 73 64 61 Respiratory Rate Blood Pressure 110/68 100/65 99/61 L Pulse Oximetry Oxygen Delivery 07/27/24 10:15 07/27/24 10:30 07/27/24 10:45 Temperature Pulse Rate 71 64 84 Respiratory Rate Blood Pressure 110/63 100/63 105/66 Pulse Oximetry Oxygen Delivery 07/27/24 11:00 07/27/24 11:15 07/27/24 11:30 Temperature Pulse Rate 66 63 67 Respiratory Rate Blood Pressure 111/56 L 99/57 L 100/62 Pulse Oximetry Oxygen Delivery 07/27/24 11:45 07/27/24 12:00 07/27/24 12:00 Temperature 98.1 F Pulse Rate 62 59 L 88 Respiratory Rate 18 Blood Pressure 102/63 106/59 L 148/62 H Pulse Oximetry 96 Oxygen Delivery 07/27/24 12:15 07/27/24 12:27 07/27/24 12:33 Temperature 98.1 F Pulse Rate 64 66 66 Respiratory Rate 12 Blood Pressure 98/61 L 108/56 L 96/60 L Pulse Oximetry 100 Oxygen Delivery 07/27/24 16:00 Temperature 96.5 F L Pulse Rate 86 Respiratory Rate 18 Blood Pressure 123/45 L Pulse Oximetry 100 Oxygen Delivery Intake/Output Intake/Output: Intake & Output 07/24/24 07/25/24 07/26/24 07/27/24 23:59 23:59 23:59 23:59 Intake Total 810 703 8957 690 Output Total 1700 1999 Balance 012 -683 3216 -9970 Meds/Results Medications: Active Medications Generic Name Dose Route Start Last Admin Trade Name Freq PRN Reason Stop Dose Admin Acetaminophen 650 mg 07/21/24 12:38 Acetaminophen 325 Mg Tablet PO Q6H PRN Mild Pain (1-3) Or Fever Albuterol 2 puff 07/21/24 12:38 Albuterol Sulfate (*Sp) Aerosol 1 Puff INHALATION Q6HRT PRN sob/wheezing Allopurinol 100 mg 07/21/24 12:50 07/27/24 13:44 Allopurinol 100 Mg Tablet PO 100 mg DAILY CESAR Administration Apixaban 2.5 mg 07/21/24 12:50 07/27/24 13:45 Apixaban 2.5 Mg Tablet PO 2.5 mg Q12HR CESAR Administration Atorvastatin Calcium 10 mg 07/21/24 12:50 07/27/24 13:45 Atorvastatin 10 Mg Tablet PO 10 mg DAILY CESAR Administration Benzonatate 0 mg 07/21/24 12:40 Benzonatate 100 Mg Capsule PO TID PRN Cough Bumetanide 1 mg 07/21/24 17:00 07/27/24 17:02 Bumetanide 1 Mg Tablet PO 1 mg BID CESAR Administration Calcitriol 0.25 mcg 07/21/24 13:00 07/26/24 09:18 Calcitriol 0.25 Mcg Capsule PO Not Given [email or web address] [facility] Calcium Acetate 1,334 mg 07/21/24 12:00 07/27/24 17:02 Calcium Acetate 667 Mg Tablet PO 1,334 mg TIDWM CESAR Administration Cyanocobalamin 1,000 mcg 07/21/24 12:50 07/27/24 13:46 Cyanocobalamin 1,000 Mcg Tablet PO 1,000 mcg DAILY CESAR Administration Dextrose 12.5 gm 07/21/24 08:12 Dextrose 50% 25 Gm/50 Ml Syringe IV PUSH PRN PRN Hypoglycemia Protocol Dextrose 12.5 gm 07/21/24 12:35 Dextrose 50% 25 Gm/50 Ml Syringe IV PUSH PRN PRN Hypoglycemia Protocol Ferrous Sulfate 650 mg 07/21/24 13:00 07/27/24 13:44 Ferrous Sulfate [address] PO 650 mg Q48HR [facility] Administration Glucagon 1 mg 07/21/24 12:35 Glucagon For Inj 1 Mg Vial IM PRN PRN Hypoglycemia Protocol Glucose 15 gm 07/21/24 12:35 Glucose Oral Gel 15 Gm Of Glucse In 37.5 Gm Tube PO PRN PRN Hypoglycemia Protocol Albumin Human 50 mls @ 999 mls/hr 07/21/24 08:43 Albutein IVPB 08/20/24 08:42 Q10M PRN HYPOTENSION Dextrose 1,000 mls @ 100 mls/hr 07/21/24 12:35 Dextrose 5% 1,000 Ml IVPB PRN PRN Hypoglycemia Protocol Insulin Aspart 4 - 8 units 07/21/24 12:00 07/27/24 13:42 Insulin Aspart (*Bkc) 100 Units/Ml SUB-Q Not Given Q6HR [facility] Protocol Lactulose 20 gm 07/21/24 18:00 07/27/24 17:02 Lactulose 20 Gm/30 Ml Udc PO 20 gm TID CESAR Administration Midodrine 10 mg 07/21/24 12:43 07/27/24 09:09 Midodrine Hcl 10 Mg Tablet PO 10 mg DAILY PRN Administration Hypotension with dialysis Miscellaneous Information 0 each 07/21/24 00:01 07/27/24 09:41 Liraglutide [Victoza 2-Vidal] 0.6 Mg/0.1 Ml = Non Formulary XX 08/20/24 00:00 Not Given CLARIFY [facility] Non-Formulary Medication 1.2 mg 07/22/24 09:00 Liraglutide [Victoza 2-Vidal] SUB-Q 08/21/24 08:59 DAILY [facility] Ondansetron HCl 4 mg 07/21/24 08:12 Ondansetron Inj 4 Mg/2 Ml Vial IV PUSH Q4H PRN Nausea Fluticasone/Salmeterol 2 puff 07/21/24 20:00 07/27/24 09:16 Fluticasone/Salmeterol 115-21 Mcg Inhaler 1 Puff INHALATION Not Given Q12HRT [facility] Vitamin D 2,000 units 07/21/24 12:50 07/27/24 13:45 Cholecalciferol 1,000 Units Tablet PO 2,000 units DAILY [facility]ESAR Administration Radiology Results: ITS Impressions Chest/Abdomen/Pelvis CT 07/21/24 07:04 Impression: Small right pleural effusion. 3 cm indeterminate left renal mass. Further evaluation with ultrasound or pre and postcontrast CT/MR advised. Cholelithiasis. Small amount of abdominopelvic ascites. Umbilical hernia which contains a focal small bowel. Head CT 07/21/24 17:53 IMPRESSION: 1. 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 Arterial/Peripheral Duplex 07/21/24 19:22 IMPRESSION: 1. Pulsatile antegrade flow in the portal veins, likely secondary to congestive heart failure. Chest X-Ray 07/25/24 06:10 IMPRESSION: 1. Mild atelectasis in the lower lung zones. 2. Cardiomegaly. Abdomen X-Ray 07/26/24 17:36 IMPRESSION: NG tube, in good position. Modified Barium Swallow 07/27/24 08:21 IMPRESSION: 1. No laryngeal penetration or aspiration. 2. Please refer to the speech therapy report for recommendations. Labs Labs: Laboratory Results - last 24 hr 07/26/24 07/27/24 07/27/24 18:52 00:16 05:39 WBC RBC Hgb Hct MCV MCH MCHC RDW Plt Count MPV Sodium Potassium Chloride Carbon Dioxide Anion Gap BUN Creatinine Estim Creat Clear Calc Estimated GFR Glucose POC Capillary Glucose 148 H 187 H 172 H Calcium 07/27/24 07/27/24 06:19 13:42 WBC 5.1 RBC 4.08 L Hgb 13.3 L Hct 42.4 MCV 103.9 H MCH 32.6 MCHC 31.4 L RDW 17.9 H Plt Count 77 L MPV 11.3 H Sodium 136 L Potassium 4.2 Chloride 101 Carbon Dioxide 29 Anion Gap 6 BUN 50 H D Creatinine 6.80 H Estim Creat Clear Calc 9 Estimated GFR 9 L Glucose 172 H POC Capillary Glucose 148 H Calcium 10.2
[2024-07-27 20:36] LABS: Glucose Point of Care 150 mg/dl (65-105)
[2024-07-27] MEDS: BENZONATATE 100 MG CAPSULE PO (20:45)
[2024-07-27] MEDS: FLUTICASONE/SALMETEROL 115-21 MCG INHALER 1 PUFF 2 PUFF INHALATION (21:29)
[2024-07-28 05:34] VITALS: BP 107/71; PULSE 72; RESP 16; TEMP 36.4; O2SAT 97
--- NOTE | 2024-07-28 07:19 | P.PNNP_ITS ---
Progress Note: A&P Assessment and Plan (1) End-stage renal disease (ESRD): Code(s): N18.6 - End stage renal disease Status: Chronic Assessment and Plan: * HD finished yesterday without event. * fluid status looks okay * 2L was removed yesterday * Electrolytes have been okay. * Dialysis due on Friday (2) Hyperkalemia: Code(s): E87.5 - Hyperkalemia Status: Resolved Assessment and Plan: * resolved (3) Altered mental status: Qualifiers: Altered mental status type: disorientation Qualified Code(s): R41.0 - Disorientation, unspecified Code(s): R41.82 - Altered mental status, unspecified Status: Acute Assessment and Plan: * Encephalopathy * no evidence of infection/sepsis... * however, mild lactic acidosis noted * Blood and urine cultures negative. * imaging reviewed: * CT head: No significant abnormality seen. * CXR negative for PNA. viral PCR negative. * CT chest/abd/pelvis: small right pleural effusion, 3 cm indeterminate left renal mass, cholelithiasis, small amount of abdominopelvic ascites, umbilical hernia which contains a focal small bowel * questionable UTI by UA but negative culture the urine * elevated ammonia level noted * initiated on lactulose via NG tube * Ammonia level down to normal * B12, folate, TSH all okay. 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: without marine oil terminal superintendent use Diabetes mellitus complication status: with kidney complications Diabetes mellitus complication detail: with chronic kidney disease Chronic kidney disease stage: on chronic dialysis Qualified Code(s): E11.22 - Type 2 diabetes mellitus with diabetic chronic kidney disease; N18.6 - End stage renal disease; Z99.2 - Dependence on renal dialysis Code(s): E11.9 - Type 2 diabetes mellitus without complications Status: Chronic Assessment and Plan: * follow accu-cheks * glycemic control per hospitalists Subjective Date/time seen: 07/28/24 07:19 Interval history: Alert. No shortness of breath or chest pain Exam 2 Narrative: WDWN in NAD skin no rash Or subcu nodules head ncat lungs clear to auscultation cor reg no rub or gallop abd BS+ without tenderness ext no edema or cyanosis Objective Data Vital Signs Vital Signs: Vital Signs - 24 hr 07/27/24 08:00 07/27/24 08:00 07/27/24 08:40 Temperature 98.1 F 97.5 F L Pulse Rate 86 72 Respiratory Rate 18 16 Blood Pressure 121/66 116/71 Pulse Oximetry 98 97 Oxygen Delivery Room Air 07/27/24 08:53 07/27/24 09:00 07/27/24 09:15 Temperature Pulse Rate 70 68 67 Respiratory Rate Blood Pressure 114/61 92/53 L 118/73 Pulse Oximetry Oxygen Delivery 07/27/24 09:30 07/27/24 09:45 07/27/24 10:00 Temperature Pulse Rate 73 64 61 Respiratory Rate Blood Pressure 110/68 100/65 99/61 L Pulse Oximetry Oxygen Delivery 07/27/24 10:15 07/27/24 10:30 07/27/24 10:45 Temperature Pulse Rate 71 64 84 Respiratory Rate Blood Pressure 110/63 100/63 105/66 Pulse Oximetry Oxygen Delivery 07/27/24 11:00 07/27/24 11:15 07/27/24 11:30 Temperature Pulse Rate 66 63 67 Respiratory Rate Blood Pressure 111/56 L 99/57 L 100/62 Pulse Oximetry Oxygen Delivery 07/27/24 11:45 07/27/24 12:00 07/27/24 12:00 Temperature 98.1 F Pulse Rate 62 59 L 88 Respiratory Rate 18 Blood Pressure 102/63 106/59 L 148/62 H Pulse Oximetry 96 Oxygen Delivery 07/27/24 12:15 07/27/24 12:27 07/27/24 12:33 Temperature 98.1 F Pulse Rate 64 66 66 Respiratory Rate 12 Blood Pressure 98/61 L 108/56 L 96/60 L Pulse Oximetry 100 Oxygen Delivery 07/27/24 16:00 07/27/24 20:00 07/27/24 20:00 Temperature 96.5 F L 98.3 F Pulse Rate 86 65 Respiratory Rate 18 16 Blood Pressure 123/45 L 105/65 Pulse Oximetry 100 96 Oxygen Delivery Room Air 07/28/24 05:34 Temperature 97.6 F Pulse Rate 72 Respiratory Rate 16 Blood Pressure 107/71 Pulse Oximetry 97 Oxygen Delivery Intake/Output Intake/Output: Intake & Output 07/25/24 07/26/24 07/27/24 07/28/24 23:59 23:59 23:59 23:59 Intake Total 845 2366 1360 550 Output Total 1700 1999 Balance -855 2366 -359 550 Meds/Results Medications: Active Medications Generic Name Dose Route Start Last Admin Trade Name Freq PRN Reason Stop Dose Admin Acetaminophen 650 mg 07/21/24 12:38 Acetaminophen 325 Mg Tablet PO Q6H PRN Mild Pain (1-3) Or Fever Albuterol 2 puff 07/21/24 12:38 Albuterol Sulfate (*Sp) Aerosol 1 Puff INHALATION Q6HRT PRN sob/wheezing Allopurinol 100 mg 07/21/24 12:50 07/27/24 13:44 Allopurinol 100 Mg Tablet PO 100 mg DAILY CESAR Administration Apixaban 2.5 mg 07/21/24 12:50 07/27/24 20:45 Apixaban 2.5 Mg Tablet PO 2.5 mg Q12HR CESAR Administration Atorvastatin Calcium 10 mg 07/21/24 12:50 07/27/24 13:45 Atorvastatin 10 Mg Tablet PO 10 mg DAILY CESAR Administration Benzonatate 0 mg 07/21/24 12:40 07/27/24 20:45 Benzonatate 100 Mg Capsule PO 100 mg TID PRN Administration Cough Bumetanide 1 mg 07/21/24 17:00 07/27/24 17:02 Bumetanide 1 Mg Tablet PO 1 mg BID CESAR Administration Calcitriol 0.25 mcg 07/21/24 13:00 07/26/24 09:18 Calcitriol 0.25 Mcg Capsule PO Not Given [id number] [facility] Calcium Acetate 1,334 mg 07/21/24 12:00 07/27/24 17:02 Calcium Acetate 667 Mg Tablet PO 1,334 mg TIDWM CESAR Administration Cyanocobalamin 1,000 mcg 07/21/24 12:50 07/27/24 13:46 Cyanocobalamin 1,000 Mcg Tablet PO 1,000 mcg DAILY CESAR Administration Dextrose 12.5 gm 07/21/24 08:12 Dextrose 50% 25 Gm/50 Ml Syringe IV PUSH PRN PRN Hypoglycemia Protocol Dextrose 12.5 gm 07/21/24 12:35 Dextrose 50% 25 Gm/50 Ml Syringe IV PUSH PRN PRN Hypoglycemia Protocol Ferrous Sulfate 650 mg 07/21/24 13:00 07/27/24 13:44 Ferrous Sulfate [address] PO 650 mg Q48HR CESAR Administration Glucagon 1 mg 07/21/24 12:35 Glucagon For Inj 1 Mg Vial IM PRN PRN Hypoglycemia Protocol Glucose 15 gm 07/21/24 12:35 Glucose Oral Gel 15 Gm Of Glucse In 37.5 Gm Tube PO PRN PRN Hypoglycemia Protocol Albumin Human 50 mls @ 999 mls/hr 07/21/24 08:43 Albutein IVPB 08/20/24 08:42 Q10M PRN HYPOTENSION Dextrose 1,000 mls @ 100 mls/hr 07/21/24 12:35 Dextrose 5% 1,000 Ml IVPB PRN PRN Hypoglycemia Protocol Insulin Aspart 4 - 8 units 07/28/24 08:00 Insulin Aspart (*Bkc) 100 Units/Ml SUB-Q ACINSULIN CESAR Protocol Lactulose 20 gm 07/21/24 18:00 07/27/24 17:02 Lactulose 20 Gm/30 Ml Udc PO 20 gm TID CESAR Administration Midodrine 10 mg 07/21/24 12:43 07/27/24 09:09 Midodrine Hcl 10 Mg Tablet PO 10 mg DAILY PRN Administration Hypotension with dialysis Miscellaneous Information 0 each 07/21/24 00:01 07/27/24 09:41 Liraglutide [Victoza 2-Vidal] 0.6 Mg/0.1 Ml = Non Formulary XX 08/20/24 00:00 Not Given CLARIFY CESAR Non-Formulary Medication 1.2 mg 07/22/24 09:00 Liraglutide [Victoza 2-Vidal] SUB-Q 08/21/24 08:59 DAILY CESAR Ondansetron HCl 4 mg 07/21/24 08:12 Ondansetron Inj 4 Mg/2 Ml Vial IV PUSH Q4H PRN Nausea Fluticasone/Salmeterol 2 puff 07/21/24 20:00 07/27/24 21:29 Fluticasone/Salmeterol 115-21 Mcg Inhaler 1 Puff INHALATION 2 puff Q12HRT CESAR Administration Vitamin D 2,000 units 07/21/24 12:50 07/27/24 13:45 Cholecalciferol 1,000 Units Tablet PO 2,000 units DAILY CESAR Administration Radiology Results: ITS Impressions Chest/Abdomen/Pelvis CT 07/21/24 07:04 Impression: Small right pleural effusion. 3 cm indeterminate left renal mass. Further evaluation with ultrasound or pre and postcontrast CT/MR advised. Cholelithiasis. Small amount of abdominopelvic ascites. Umbilical hernia which contains a focal small bowel. Head CT 07/21/24 17:53 IMPRESSION: 1. 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 Arterial/Peripheral Duplex 07/21/24 19:22 IMPRESSION: 1. Pulsatile antegrade flow in the portal veins, likely secondary to congestive heart failure. Chest X-Ray 07/25/24 06:10 IMPRESSION: 1. Mild atelectasis in the lower lung zones. 2. Cardiomegaly. Abdomen X-Ray 07/26/24 17:36 IMPRESSION: NG tube, in good position. Modified Barium Swallow 07/27/24 08:21 IMPRESSION: 1. No laryngeal penetration or aspiration. 2. Please refer to the speech therapy report for recommendations. Labs Labs: Laboratory Results - last 24 hr 07/27/24 07/27/24 07/27/24 05:39 13:42 20:32 POC Capillary Glucose 172 H 148 H 150 H
[2024-07-28 08:37] LABS: Glucose Point of Care 140 mg/dl (65-105)
[2024-07-28] MEDS: CALCIUM ACETATE 667 MG TABLET 1334 MG PO ×3 (08:46→16:17)
[2024-07-28] MEDS: ATORVASTATIN 10 MG TABLET PO (08:46)
[2024-07-28] MEDS: APIXABAN 2.5 MG TABLET PO ×2 (08:46→20:28)
[2024-07-28] MEDS: CHOLECALCIFEROL 1,000 UNITS TABLET 2000 UNITS PO (08:46)
[2024-07-28] MEDS: BUMETANIDE 1 MG TABLET PO ×2 (08:46→16:17)
[2024-07-28] MEDS: allopurinoL 100 MG TABLET PO (08:46)
[2024-07-28] MEDS: CYANOCOBALAMIN 1,000 MCG TABLET 1000 MCG PO (08:46)
[2024-07-28] MEDS: LACTULOSE 20 GM/30 ML UDC PO ×2 (08:47→12:40)
[2024-07-28] MEDS: BENZONATATE 100 MG CAPSULE PO (08:52)
[2024-07-28] MEDS: calcitrioL 0.25 MCG CAPSULE PO (08:52)
[2024-07-28] MEDS: FLUTICASONE/SALMETEROL 115-21 MCG INHALER 1 PUFF 2 PUFF INHALATION ×2 (08:57→20:04)
[2024-07-28 12:01] LABS: Glucose Point of Care 141 mg/dl (65-105)
[2024-07-28 14:00] VITALS: BP 98/58; PULSE 68; RESP 18; TEMP 36; O2SAT 99
--- NOTE | 2024-07-28 15:16 | PM.IMPN ---
Progress Note: A&P Assessment and Plan (1) Altered mental status: Qualifiers: Altered mental status type: disorientation Qualified Code(s): R41.0 - Disorientation, unspecified Code(s): R41.82 - Altered mental status, unspecified Status: Acute Assessment and Plan: Patient presents with AMS. He did not meet SIRS criteria but lactic elevated to 2.5 CT head showing no significant abnormalities. Can not obtain MRI brain but repeat CT brain showing no acute findings. CXR showing central congestive changes and pulmonary edema. Viral PCR negative. UCx negative. BCx negative CT chest/abd/pelvis showing small right pleural effusion, 3cm indeterminate left renal mass, cholelithiasis, small amount of abdominopelvic ascites and umbilical hernia which contains a focal small bowel (easily reducible) Ammonia 122. ABG 7.48/ on RA. TSH, folate and B12 normal. Troponin flat with 0.028 -> 0.031 Suspect AMS secondary to ammonia levels. Treated with lactulose and mental status improved 07/28/2024 Stable waiting for placement Will continue current treatment (2) Increased ammonia level: Code(s): R79.89 - Other specified abnormal findings of blood chemistry Status: Acute Assessment and Plan: Ammonia 122. Total bilirubin 3.3 but LFTs otherwise normal. DBili 1.1. Tbili trended down. TBili has been elevated in the past No history of cirrhosis or ETOH abuse US retroperitoneal duplex showing pulsatile antegrade flow in the portal veins 2nd to CHF. CT showing a small amount of abdominal and pelvic ascites but no abnormalities seen of the liver. Echo showing normal LV with hyperdynamic systolic fxn EF >70%, severely dilated RV with reduced systolic fxn, RV pressure overload significantly elevated RAP. Biatrial enlargement. There is a small mobile echodensity in the RA possibly an eustachian valve. (BCx negative) NGT placed and started on lactulose t.i.d. Patient's mental status improved with treatment Etiology of elevated ammonia level unclear. (3) Dysphagia: Code(s): R13.10 - Dysphagia, unspecified Status: Acute Assessment and Plan: Mental status improved but had persistent dysphagia. Since mental status better today, he had repeat speech evaluation (MBS) showing patient is safe for oral intake at this time. Remove NGT and start oral diet. Continue PT/OT/ST. (4) Acute on chronic diastolic CHF (congestive heart failure): Code(s): I50.33 - Acute on chronic diastolic (congestive) heart failure Status: Acute Assessment and Plan: CXR showing central congestive change and probable mild bibasilar pulmonary edema, discoid left mid lung atelectasis. BNP > 30,000 Echo as above with right sided failure. Currently on Bumex at home which was continued. Fluid management with HD. Appreciate nephrology input (5) ESRD (end stage renal disease) on dialysis: Code(s): N18.6 - End stage renal disease; Z99.2 - Dependence on renal dialysis Status: Acute Assessment and Plan: Patient with ESRD. Nephrology consulted for inpatient dialysis; appreciate their input HD on MWF but may need extra HD given the above echo findings. 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 Continue AccuCheks covering with sliding scale. Hypoglycemia protocol available as needed. Monitor Plan Thrombocytopenia - chronic and stable. Monitor Diet: oral diet started today. DVT Prophylaxis: Eliquis Code Status: Full code Disp - okay to discharge when okay to go back to SNF Subjective Date/time seen: 07/28/24 15:16 Interval history: 07/28/2024 Patient was seen during the morning rounds today. No new overnight complaints. Alert. No shortness of breath or chest pain Review of Systems Review of Systems: ROS unobtainable: Yes unobtainable due to mental status Exam Narrative: Vital signs are stable Gen - NARD undergoing HD. HEENT - NGT secured Chest - lungs clear anteriorly. Right upper chest dialysis cath CV - RRR S1/S2 Abd - Soft, obese, NT Ext - no significant pedal edema. LUE fistula accessed Neuro - alert and appropriate Skin - Warm and dry Const: Other: , male, chronically ill-appearing, obese body habitus, elderly HENMT: Face/Nose/Sinus: Normal nares present Mouth: Yes dry mucous membranes ( dry to tacky) Eyes: General: appearance normal, both eyes and all related structures Sclera: sclerae normal Pupils: Equal, round and reactive pupils present (3 mm bilaterally) Other: reaction the light mildly sluggish Resp: Effort & Inspection: normal respiratory effort Auscultation: clear to auscultation bilaterally Cardio: Rate: regular rate Rhythm: regular rhythm Other: S1-S2 present without murmur, rub, ectopy GI: Other: rounded, soft, nontender. Normoactive bowel sounds in all quadrants. Skin: General skin exam: normal color and no rashes or lesions noted Wounds: no wounds Neuro: Cranial nerves: Yes Equal, round and reactive pupils present (3 mm bilaterally) Other: Spontaneous eye opening, nonverbal, moving upper extremities. Not following commands. Alert but not regarding. Extrem: General: normal to inspection Psych: Other: Unable to assess. Objective Data Vital Signs Vital Signs: Vital Signs - 24 hr 07/27/24 16:00 07/27/24 20:00 07/27/24 20:00 Temperature 35.8 C L 36.8 C Pulse Rate 86 65 Respiratory Rate 18 16 Blood Pressure 123/45 L 105/65 Pulse Oximetry 100 96 Oxygen Delivery Room Air 07/28/24 05:34 07/28/24 08:00 Temperature 36.4 C Pulse Rate 72 Respiratory Rate 16 Blood Pressure 107/71 Pulse Oximetry 97 Oxygen Delivery Room Air Intake/Output Intake/Output: Intake & Output 07/25/24 07/26/24 07/27/24 07/28/24 23:59 23:59 23:59 23:59 Intake Total 845 2366 1360 1270 Output Total 1700 2000 Balance -855 2366 -640 1270 Meds/Results Medications: Active Medications Generic Name Dose Route Start Last Admin Trade Name Freq PRN Reason Stop Dose Admin Acetaminophen 650 mg 07/21/24 12:38 Acetaminophen 325 Mg Tablet PO Q6H PRN Mild Pain (1-3) Or Fever Albuterol 2 puff 07/21/24 12:38 Albuterol Sulfate (*Sp) Aerosol 1 Puff INHALATION Q6HRT PRN sob/wheezing Allopurinol 100 mg 07/21/24 12:50 07/28/24 08:46 Allopurinol 100 Mg Tablet PO 100 mg DAILY CESAR Administration Apixaban 2.5 mg 07/21/24 12:50 07/28/24 08:46 Apixaban 2.5 Mg Tablet PO 2.5 mg Q12HR CESAR Administration Atorvastatin Calcium 10 mg 07/21/24 12:50 07/28/24 08:46 Atorvastatin 10 Mg Tablet PO 10 mg DAILY CESAR Administration Benzonatate 0 mg 07/21/24 12:40 07/28/24 08:52 Benzonatate 100 Mg Capsule PO 200 mg TID PRN Administration Cough Bumetanide 1 mg 07/21/24 17:00 07/28/24 08:46 Bumetanide 1 Mg Tablet PO 1 mg BID CESAR Administration Calcitriol 0.25 mcg 07/21/24 13:00 07/28/24 08:52 Calcitriol 0.25 Mcg Capsule PO 0.25 mcg [id number] CESAR Administration Calcium Acetate 1,334 mg 07/21/24 12:00 07/28/24 12:40 Calcium Acetate 667 Mg Tablet PO 1,334 mg TIDWM CESAR Administration Cyanocobalamin 1,000 mcg 07/21/24 12:50 07/28/24 08:46 Cyanocobalamin 1,000 Mcg Tablet PO 1,000 mcg DAILY CESAR Administration Dextrose 12.5 gm 07/21/24 08:12 Dextrose 50% 25 Gm/50 Ml Syringe IV PUSH PRN PRN Hypoglycemia Protocol Dextrose 12.5 gm 07/21/24 12:35 Dextrose 50% 25 Gm/50 Ml Syringe IV PUSH PRN PRN Hypoglycemia Protocol Ferrous Sulfate 650 mg 07/21/24 13:00 07/27/24 13:44 Ferrous Sulfate [address] PO 650 mg Q48HR CESAR Administration Glucagon 1 mg 07/21/24 12:35 Glucagon For Inj 1 Mg Vial IM PRN PRN Hypoglycemia Protocol Glucose 15 gm 07/21/24 12:35 Glucose Oral Gel 15 Gm Of Glucse In 37.5 Gm Tube PO PRN PRN Hypoglycemia Protocol Albumin Human 50 mls @ 999 mls/hr 07/21/24 08:43 Albutein IVPB 08/20/24 08:42 Q10M PRN HYPOTENSION Dextrose 1,000 mls @ 100 mls/hr 07/21/24 12:35 Dextrose 5% 1,000 Ml IVPB PRN PRN Hypoglycemia Protocol Insulin Aspart 4 - 8 units 07/28/24 08:00 07/28/24 12:24 Insulin Aspart (*Bkc) 100 Units/Ml SUB-Q Not Given ACINSULIN CESAR Protocol Lactulose 20 gm 07/21/24 18:00 07/28/24 12:40 Lactulose 20 Gm/30 Ml Udc PO 20 gm TID CESAR Administration Midodrine 10 mg 07/21/24 12:43 07/27/24 09:09 Midodrine Hcl 10 Mg Tablet PO 10 mg DAILY PRN Administration Hypotension with dialysis Miscellaneous Information 0 each 07/21/24 00:01 07/28/24 08:48 Liraglutide [Victoza 2-Vidal] 0.6 Mg/0.1 Ml = Non Formulary XX 08/20/24 00:00 Not Given CLARIFY CESAR Non-Formulary Medication 1.2 mg 07/22/24 09:00 Liraglutide [Victoza 2-Vidal] SUB-Q 08/21/24 08:59 DAILY CESAR Ondansetron HCl 4 mg 07/21/24 08:12 Ondansetron Inj 4 Mg/2 Ml Vial IV PUSH Q4H PRN Nausea Fluticasone/Salmeterol 2 puff 07/21/24 20:00 07/28/24 08:57 Fluticasone/Salmeterol 115-21 Mcg Inhaler 1 Puff INHALATION 2 puff Q12HRT CESAR Administration Vitamin D 2,000 units 07/21/24 12:50 07/28/24 08:46 Cholecalciferol 1,000 Units Tablet PO 2,000 units DAILY CESAR Administration Radiology Results: ITS Impressions Chest/Abdomen/Pelvis CT 07/21/24 07:04 Impression: Small right pleural effusion. 3 cm indeterminate left renal mass. Further evaluation with ultrasound or pre and postcontrast CT/MR advised. Cholelithiasis. Small amount of abdominopelvic ascites. Umbilical hernia which contains a focal small bowel. Head CT 07/21/24 17:53 IMPRESSION: 1. 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 Arterial/Peripheral Duplex 07/21/24 19:22 IMPRESSION: 1. Pulsatile antegrade flow in the portal veins, likely secondary to congestive heart failure. Chest X-Ray 07/25/24 06:10 IMPRESSION: 1. Mild atelectasis in the lower lung zones. 2. Cardiomegaly. Abdomen X-Ray 07/26/24 17:36 IMPRESSION: NG tube, in good position. Modified Barium Swallow 07/27/24 08:21 IMPRESSION: 1. No laryngeal penetration or aspiration. 2. Please refer to the speech therapy report for recommendations. Labs Labs: Laboratory Results - last 24 hr 07/27/24 07/28/24 07/28/24 20:32 08:05 11:45 POC Capillary Glucose 150 H 140 H 141 H Quality VTE Prophylaxis VTE prophylaxis: mechanical ordered
[2024-07-28 16:55] LABS: Glucose Point of Care 177 mg/dl (65-105)
[2024-07-28 20:48] LABS: Glucose Point of Care 146 mg/dl (65-105)
[2024-07-28 21:08] VITALS: BP 93/59; PULSE 74; RESP 18; TEMP 36.4; O2SAT 100
[2024-07-29 05:48] VITALS: BP 110/69; PULSE 75; RESP 18; TEMP 36.4; O2SAT 95
[2024-07-29 08:00] VITALS: PULSE 75; RESP 18; O2SAT 95
[2024-07-29 08:33] LABS: Glucose Point of Care 217 mg/dl (65-105)
[2024-07-29 08:39] LABS: Hematocrit 40.7 % (42.0-52.0); Hemoglobin 12.4 g/dL (14.0-18.0); Mean Corpuscular HGB Conc 30.5 g/dl (32-36); Mean Corpuscular Hemoglobin 32.1 pg (26-34); Mean Corpuscular Volume 105.4 fl (80-100); Mean Platelet Volume 11.7 fl (7.4-10.4); Platelet Count Result 78 k/mm3 (150-375); Red Blood Count 3.86 M/mm3 (4.6-6.20); Red Cell Distribution Width 17.5 % (11.5-14.5); White Blood Count 5.5 K/mm3 (4.5-10.0)
[2024-07-29 08:54] LABS: Anion Gap 6 mmol/L (4-12); Blood Urea Nitrogen 51 mg/dL (9-20); Calcium 9.4 mg/dL (8.4-10.2); Carbon Dioxide 31 mmol/L (22-30); Chloride 98 mmol/L (98-107); Estimated CRCL calculation 9 ml/min; Estimated Glomerular Filt Rate 10; Glucose 156 mg/dL (65-110); Potassium 4.5 mmol/L (3.4-5.0); Sodium 135 mmol/L (137-145)
--- NOTE | 2024-07-29 09:05 | P.PNNP_ITS ---
Progress Note: A&P Assessment and Plan (1) End-stage renal disease (ESRD): Code(s): N18.6 - End stage renal disease Status: Chronic Assessment and Plan: * HD is due for tomorrow * fluid status looks okay * Will shoot for 1-2 L again. * Electrolytes have been okay. * Volume status looks good (2) Hyperkalemia: Code(s): E87.5 - Hyperkalemia Status: Resolved Assessment and Plan: * resolved (3) Altered mental status: Qualifiers: Altered mental status type: disorientation Qualified Code(s): R41.0 - Disorientation, unspecified Code(s): R41.82 - Altered mental status, unspecified Status: Acute Assessment and Plan: * Encephalopathy * no evidence of infection/sepsis... * however, mild lactic acidosis noted * Blood and urine cultures negative. * imaging reviewed: * CT head: No significant abnormality seen. * CXR negative for PNA. viral PCR negative. * CT chest/abd/pelvis: small right pleural effusion, 3 cm indeterminate left renal mass, cholelithiasis, small amount of abdominopelvic ascites, umb ilical hernia which contains a focal small bowel * questionable UTI by UA but negative culture the urine * elevated ammonia level noted * initiated on lactulose via NG tube * Ammonia level down to normal * B12, folate, TSH all okay. * Mental status looks baseline. Okay for discharge from the kidney standpoint (4) Hypotension: Code(s): I95.9 - Hypotension, unspecified Status: Chronic Assessment and Plan: * chronic issue at baseline * on midodrine therapy * Blood pressure good today (5) Anemia: Qualifiers: Anemia type: unspecified type Qualified Code(s): D64.9 - Anemia, unspecified Code(s): D64.9 - Anemia, unspecified Status: Chronic Assessment and Plan: * due to ESRD * hb stable in mid 12 range * No Epogen needed. * Iron levels being followed by dialysis unit (6) Diabetes: Qualifiers: Diabetes mellitus type: type 2 Diabetes mellitus superintendent terminal insulin use: without correction use Diabetes mellitus complication status: with kidney complications Diabetes mellitus complication detail: with chronic kidney disease Chronic kidney disease stage: on chronic dialysis Qualified Code(s): E11.22 - Type 2 diabetes mellitus with diabetic chronic kidney disease; N18.6 - End stage renal disease; Z99.2 - Dependence on renal dialysis Code(s): E11.9 - Type 2 diabetes mellitus without complications Status: Chronic Assessment and Plan: * follow accu-cheks * glycemic control per hospitalists Subjective Date/time seen: 07/29/24 09:05 Interval history: Khalif is sitting up in a chair beside the bed. Alert and very conversive. He looks baseline to me. Exam Narrative: WDWN in NAD skin no rash Or subcu nodules head ncat lungs clear bilaterally cor reg no rub or gallop abd BS+ without tenderness or HSM ext no edema Objective Data Vital Signs Vital Signs: Vital Signs - 24 hr 07/28/24 14:00 07/28/24 21:08 07/29/24 05:48 Temperature 96.8 F L 97.6 F 97.6 F Pulse Rate 68 74 75 Respiratory Rate 18 18 18 Blood Pressure 98/58 L 93/59 L 110/69 Pulse Oximetry 99 100 95 Intake/Output Intake/Output: Intake & Output 07/26/24 07/27/24 07/28/24 07/29/24 23:59 23:59 23:59 23:59 Intake Total 2366 1360 1630 200 Output Total 2000 4 Balance 2366 -640 1626 200 Meds/Results Medications: Active Medications Generic Name Dose Route Start Last Admin Trade Name Freq PRN Reason Stop Dose Admin Acetaminophen 650 mg 07/21/24 12:38 Acetaminophen 325 Mg Tablet PO Q6H PRN Mild Pain (1-3) Or Fever Albuterol 2 puff 07/21/24 12:38 Albuterol Sulfate (*Sp) Aerosol 1 Puff INHALATION Q6HRT PRN sob/wheezing Allopurinol 100 mg 07/21/24 12:50 07/28/24 08:46 Allopurinol 100 Mg Tablet PO 100 mg DAILY CESAR Administration Apixaban 2.5 mg 07/21/24 12:50 07/28/24 20:28 Apixaban 2.5 Mg Tablet PO 2.5 mg Q12HR CESAR Administration Atorvastatin Calcium 10 mg 07/21/24 12:50 07/28/24 08:46 Atorvastatin 10 Mg Tablet PO 10 mg DAILY CESAR Administration Benzonatate 0 mg 07/21/24 12:40 07/28/24 08:52 Benzonatate 100 Mg Capsule PO 200 mg TID PRN Administration Cough Bumetanide 1 mg 07/21/24 17:00 07/28/24 16:17 Bumetanide 1 Mg Tablet PO 1 mg BID CESAR Administration Calcitriol 0.25 mcg 07/21/24 13:00 07/28/24 08:52 Calcitriol 0.25 Mcg Capsule PO 0.25 mcg [id number] CESAR Administration Calcium Acetate 1,334 mg 07/21/24 12:00 07/28/24 16:17 Calcium Acetate 667 Mg Tablet PO 1,334 mg TIDWM CESAR Administration Cyanocobalamin 1,000 mcg 07/21/24 12:50 07/28/24 08:46 Cyanocobalamin 1,000 Mcg Tablet PO 1,000 mcg DAILY CESAR Administration Dextrose 12.5 gm 07/21/24 08:12 Dextrose 50% 25 Gm/50 Ml Syringe IV PUSH PRN PRN Hypoglycemia Protocol Dextrose 12.5 gm 07/21/24 12:35 Dextrose 50% 25 Gm/50 Ml Syringe IV PUSH PRN PRN Hypoglycemia Protocol Ferrous Sulfate 650 mg 07/21/24 13:00 07/27/24 13:44 Ferrous Sulfate [address] PO 650 mg Q48HR CESAR Administration Glucagon 1 mg 07/21/24 12:35 Glucagon For Inj 1 Mg Vial IM PRN PRN Hypoglycemia Protocol Glucose 15 gm 07/21/24 12:35 Glucose Oral Gel 15 Gm Of Glucse In 37.5 Gm Tube PO PRN PRN Hypoglycemia Protocol Albumin Human 50 mls @ 999 mls/hr 07/21/24 08:43 Albutein IVPB 08/20/24 08:42 Q10M PRN HYPOTENSION Dextrose 1,000 mls @ 100 mls/hr 07/21/24 12:35 Dextrose 5% 1,000 Ml IVPB PRN PRN Hypoglycemia Protocol Insulin Aspart 4 - 8 units 07/28/24 08:00 07/28/24 16:46 Insulin Aspart (*Bkc) 100 Units/Ml SUB-Q Not Given ACINSULIN [facility] Protocol Lactulose 20 gm 07/21/24 18:00 07/28/24 15:47 Lactulose 20 Gm/30 Ml Udc PO Not Given TID CESAR Midodrine 10 mg 07/21/24 12:43 07/27/24 09:09 Midodrine Hcl 10 Mg Tablet PO 10 mg DAILY PRN Administration Hypotension with dialysis Miscellaneous Information 0 each 07/21/24 00:01 07/28/24 08:48 Liraglutide [Victoza 2-Vidal] 0.6 Mg/0.1 Ml = Non Formulary XX 08/20/24 00:00 Not Given CLARIFY CESAR Non-Formulary Medication 1.2 mg 07/22/24 09:00 Liraglutide [Victoza 2-Vidal] SUB-Q 08/21/24 08:59 DAILY CESAR Ondansetron HCl 4 mg 07/21/24 08:12 Ondansetron Inj 4 Mg/2 Ml Vial IV PUSH Q4H PRN Nausea Fluticasone/Salmeterol 2 puff 07/21/24 20:00 07/28/24 20:04 Fluticasone/Salmeterol 115-21 Mcg Inhaler 1 Puff INHALATION 2 puff Q12HRT CESAR Administration Vitamin D 2,000 units 07/21/24 12:50 07/28/24 08:46 Cholecalciferol 1,000 Units Tablet PO 2,000 units DAILY CESAR Administration Radiology Results: ITS Impressions Chest/Abdomen/Pelvis CT 07/21/24 07:04 Impression: Small right pleural effusion. 3 cm indeterminate left renal mass. Further evaluation with ultrasound or pre and postcontrast CT/MR advised. Cholelithiasis. Small amount of abdominopelvic ascites. Umbilical hernia which contains a focal small bowel. Head CT 07/21/24 17:53 IMPRESSION: 1. 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 Arterial/Peripheral Duplex 07/21/24 19:22 IMPRESSION: 1. Pulsatile antegrade flow in the portal veins, likely secondary to congestive heart failure. Chest X-Ray 07/25/24 06:10 IMPRESSION: 1. Mild atelectasis in the lower lung zones. 2. Cardiomegaly. Abdomen X-Ray 07/26/24 17:36 IMPRESSION: NG tube, in good position. Modified Barium Swallow 07/27/24 08:21 IMPRESSION: 1. No laryngeal penetration or aspiration. 2. Please refer to the speech therapy report for recommendations. Labs Labs: Laboratory Results - last 24 hr 07/28/24 07/28/24 07/28/24 11:45 16:39 19:55 WBC RBC Hgb Hct MCV MCH MCHC RDW Plt Count MPV Sodium Potassium Chloride Carbon Dioxide Anion Gap BUN Creatinine Estim Creat Clear Calc Estimated GFR Glucose POC Capillary Glucose 141 H 177 H 146 H Calcium 07/29/24 07/29/24 07:59 08:29 WBC 5.5 RBC 3.86 L Hgb 12.4 L Hct 40.7 L MCV 105.4 H MCH 32.1 MCHC 30.5 L RDW 17.5 H Plt Count 78 L MPV 11.7 H Sodium 135 L Potassium 4.5 Chloride 98 Carbon Dioxide 31 H Anion Gap 6 BUN 51 H Creatinine 6.60 H Estim Creat Clear Calc 9 Estimated GFR 10 L Glucose 156 H POC Capillary Glucose 217 H Calcium 9.4
[2024-07-29] MEDS: APIXABAN 2.5 MG TABLET PO ×2 (09:16→20:25)
[2024-07-29] MEDS: allopurinoL 100 MG TABLET PO (09:16)
[2024-07-29] MEDS: FERROUS SULFATE 325 MG TABLET DR 650 MG PO (09:16)
[2024-07-29] MEDS: CHOLECALCIFEROL 1,000 UNITS TABLET 2000 UNITS PO (09:16)
[2024-07-29] MEDS: ATORVASTATIN 10 MG TABLET PO (09:16)
[2024-07-29] MEDS: BUMETANIDE 1 MG TABLET PO ×2 (09:17→16:57)
[2024-07-29] MEDS: CALCIUM ACETATE 667 MG TABLET 1334 MG PO ×3 (09:17→16:57)
[2024-07-29] MEDS: CYANOCOBALAMIN 1,000 MCG TABLET 1000 MCG PO (09:17)
[2024-07-29] MEDS: LACTULOSE 20 GM/30 ML UDC PO ×3 (09:23→16:57)
[2024-07-29] MEDS: FLUTICASONE/SALMETEROL 115-21 MCG INHALER 1 PUFF 2 PUFF INHALATION ×2 (09:35→21:45)
[2024-07-29] MEDS: INSULIN ASPART (*BKC) 100 UNITS/ML SUB-Q (10:09)
--- NOTE | 2024-07-29 11:29 | P.PNIM_ITS ---
Progress Note: A&P Assessment and Plan (1) Altered mental status: Qualifiers: Altered mental status type: disorientation Qualified Code(s): R41.0 - Disorientation, unspecified Code(s): R41.82 - Altered mental status, unspecified Status: Acute Assessment and Plan: Patient presents with AMS. He did not meet SIRS criteria but lactic elevated to 2.5 CT head showing no significant abnormalities. Can not obtain MRI brain but repeat CT brain showing no acute findings. CXR showing central congestive changes and pulmonary edema. Viral PCR negative. UCx negative. BCx negative CT chest/abd/pelvis showing small right pleural effusion, 3cm indeterminate left renal mass, cholelithiasis, small amount of abdominopelvic ascites and umbilical hernia which contains a focal small bowel (easily reducible) Ammonia 122. ABG 7.48/ on RA. TSH, folate and B12 normal. Troponin flat with 0.028 -> 0.031 Suspect AMS secondary to ammonia levels. Treated with lactulose and mental status improved 07/29/2024 Stable waiting for placement Will continue current treatment (2) Increased ammonia level: Code(s): R79.89 - Other specified abnormal findings of blood chemistry Status: Acute Assessment and Plan: Ammonia 122. Total bilirubin 3.3 but LFTs otherwise normal. DBili 1.1. Tbili trended down. TBili has been elevated in the past No history of cirrhosis or ETOH abuse US retroperitoneal duplex showing pulsatile antegrade flow in the portal veins 2nd to CHF. CT showing a small amount of abdominal and pelvic ascites but no abnormalities seen of the liver. Echo showing normal LV with hyperdynamic systolic fxn EF >70%, severely dilated RV with reduced systolic fxn, RV pressure overload significantly elevated RAP. Biatrial enlargement. There is a small mobile echodensity in the RA possibly an eustachian valve. (BCx negative) NGT placed and started on lactulose t.i.d. Patient's mental status improved with treatment Etiology of elevated ammonia level unclear. 07/29/2024 Stable on current medications, will continue current treatment (3) Dysphagia: Code(s): R13.10 - Dysphagia, unspecified Status: Acute Assessment and Plan: Mental status improved but had persistent dysphagia. Since mental status better today, he had repeat speech evaluation (MBS) showing patient is safe for oral intake at this time. Remove NGT and start oral diet. 07/27/2026 Tolerating PO intake Continue PT/OT/ST. (4) Acute on chronic diastolic CHF (congestive heart failure): Code(s): I50.33 - Acute on chronic diastolic (congestive) heart failure Status: Acute Assessment and Plan: CXR showing central congestive change and probable mild bibasilar pulmonary edema, discoid left mid lung atelectasis. BNP > 30,000 Echo as above with right sided failure. Currently on Bumex at home which was continued. Fluid management with HD. Appreciate nephrology input 07/29/2024 Stable on current medications, will continue current treatment (5) ESRD (end stage renal disease) on dialysis: Code(s): N18.6 - End stage renal disease; Z99.2 - Dependence on renal dialysis Status: Acute Assessment and Plan: Patient with ESRD. Nephrology consulted for inpatient dialysis; appreciate their input HD on MWF but may need extra HD given the above echo findings. 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 Continue AccuCheks covering with sliding scale. Hypoglycemia protocol available as needed. Monitor 07/29/2024 Stable on current medications, will continue current treatment Plan Thrombocytopenia - chronic and stable. Monitor Diet: oral diet started today. DVT Prophylaxis: Eliquis Code Status: Full code Disp - okay to discharge when okay to go back to SNF Subjective Date/time seen: 07/29/24 11:29 Interval history: Patient was seen during morning rounds today. Patient is feeling much better. No shortness of breath or chest pain. No abdominal pain, nausea, no vomiting. Mood stable. Review of Systems Review of Systems: ROS unobtainable: Yes unobtainable due to mental status Exam Narrative: Vital signs are stable Gen - NARD undergoing HD. HEENT - NGT secured Chest - lungs clear anteriorly. Right upper chest dialysis cath CV - RRR S1/S2 Abd - Soft, obese, NT Ext - no significant pedal edema. LUE fistula accessed Neuro - alert and appropriate Skin - Warm and dry Const: Other: , male, chronically ill-appearing, obese body habitus, elderly HENMT: Face/Nose/Sinus: Normal nares present Mouth: Yes dry mucous membranes ( dry to tacky) Eyes: General: appearance normal, both eyes and all related structures Sclera: sclerae normal Pupils: Equal, round and reactive pupils present (3 mm bilaterally) Other: reaction the light mildly sluggish Resp: Effort & Inspection: normal respiratory effort Auscultation: clear to auscultation bilaterally Cardio: Rate: regular rate Rhythm: regular rhythm Other: S1-S2 present without murmur, rub, ectopy GI: Other: rounded, soft, nontender. Normoactive bowel sounds in all quadrants. Skin: General skin exam: normal color and no rashes or lesions noted Wounds: no wounds Neuro: Cranial nerves: Yes Equal, round and reactive pupils present (3 mm bilaterally) Other: Spontaneous eye opening, nonverbal, moving upper extremities. Not following commands. Alert but not regarding. Extrem: General: normal to inspection Psych: Other: Unable to assess. Objective Data Vital Signs Vital Signs: Vital Signs - 24 hr 07/28/24 14:00 07/28/24 21:08 07/29/24 05:48 Temperature 36.0 C L 36.4 C 36.4 C Pulse Rate 68 74 75 Respiratory Rate 18 18 Blood Pressure 98/58 L 93/59 L 110/69 Pulse Oximetry 99 100 95 Intake/Output Intake/Output: Intake & Output 07/26/24 07/27/24 07/28/24 07/29/24 23:59 23:59 23:59 23:59 Intake Total 2366 1360 1630 560 Output Total 1999 11 Balance 2366 -640 1626 560 Meds/Results Medications: Active Medications Generic Name Dose Route Start Last Admin Trade Name Freq PRN Reason Stop Dose Admin Acetaminophen 650 mg 07/21/24 12:38 Acetaminophen 325 Mg Tablet PO Q6H PRN Mild Pain (1-3) Or Fever Albuterol 2 puff 07/21/24 12:38 Albuterol Sulfate (*Sp) Aerosol 1 Puff INHALATION Q6HRT PRN sob/wheezing Allopurinol 100 mg 07/21/24 12:50 07/29/24 09:16 Allopurinol 100 Mg Tablet PO 100 mg DAILY CESAR Administration Apixaban 2.5 mg 07/21/24 12:50 07/29/24 09:16 Apixaban 2.5 Mg Tablet PO 2.5 mg Q12HR CESAR Administration Atorvastatin Calcium 10 mg 07/21/24 12:50 07/29/24 09:16 Atorvastatin 10 Mg Tablet PO 10 mg DAILY CESAR Administration Benzonatate 0 mg 07/21/24 12:40 07/28/24 08:52 Benzonatate 100 Mg Capsule PO 200 mg TID PRN Administration Cough Bumetanide 1 mg 07/21/24 17:00 07/29/24 09:17 Bumetanide 1 Mg Tablet PO 1 mg BID CESAR Administration Calcitriol 0.25 mcg 07/21/24 13:00 07/28/24 08:52 Calcitriol 0.25 Mcg Capsule PO 0.25 mcg [id number] CESAR Administration Calcium Acetate 1,334 mg 07/21/24 12:00 07/29/24 09:17 Calcium Acetate 667 Mg Tablet PO 1,334 mg TIDWM CESAR Administration Cyanocobalamin 1,000 mcg 07/21/24 12:50 07/29/24 09:17 Cyanocobalamin 1,000 Mcg Tablet PO 1,000 mcg DAILY CESAR Administration Dextrose 12.5 gm 07/21/24 08:12 Dextrose 50% 25 Gm/50 Ml Syringe IV PUSH PRN PRN Hypoglycemia Protocol Dextrose 12.5 gm 07/21/24 12:35 Dextrose 50% 25 Gm/50 Ml Syringe IV PUSH PRN PRN Hypoglycemia Protocol Ferrous Sulfate 650 mg 07/21/24 13:00 07/29/24 09:16 Ferrous Sulfate [address] PO 650 mg Q48HR CESAR Administration Glucagon 1 mg 07/21/24 12:35 Glucagon For Inj 1 Mg Vial IM PRN PRN Hypoglycemia Protocol Glucose 15 gm 07/21/24 12:35 Glucose Oral Gel 15 Gm Of Glucse In 37.5 Gm Tube PO PRN PRN Hypoglycemia Protocol Albumin Human 50 mls @ 999 mls/hr 07/21/24 08:43 Albutein IVPB 08/20/24 08:42 Q10M PRN HYPOTENSION Dextrose 1,000 mls @ 100 mls/hr 07/21/24 12:35 Dextrose 5% 1,000 Ml IVPB PRN PRN Hypoglycemia Protocol Albumin Human 50 mls @ 999 mls/hr 07/29/24 09:07 Albutein IVPB 07/30/24 09:06 Q10M PRN HYPOTENSION Insulin Aspart 4 - 8 units 07/28/24 08:00 07/29/24 10:09 Insulin Aspart (*Bkc) 100 Units/Ml SUB-Q 4 units ACINSULIN CESAR Administration Protocol Lactulose 20 gm 07/21/24 18:00 07/29/24 09:23 Lactulose 20 Gm/30 Ml Udc PO 20 gm TID CESAR Administration Midodrine 10 mg 07/21/24 12:43 07/27/24 09:09 Midodrine Hcl 10 Mg Tablet PO 10 mg DAILY PRN Administration Hypotension with dialysis Miscellaneous Information 0 each 07/21/24 00:01 07/28/24 08:48 Liraglutide [Victoza 2-Vidal] 0.6 Mg/0.1 Ml = Non Formulary XX 08/20/24 00:00 Not Given CLARIFY CESAR Non-Formulary Medication 1.2 mg 07/22/24 09:00 Liraglutide [Victoza 2-Vidal] SUB-Q 08/21/24 08:59 DAILY CESAR Ondansetron HCl 4 mg 07/21/24 08:12 Ondansetron Inj 4 Mg/2 Ml Vial IV PUSH Q4H PRN Nausea Fluticasone/Salmeterol 2 puff 07/21/24 20:00 07/29/24 09:35 Fluticasone/Salmeterol 115-21 Mcg Inhaler 1 Puff INHALATION 2 puff Q12HRT CESAR Administration Vitamin D 2,000 units 07/21/24 12:50 07/29/24 09:16 Cholecalciferol 1,000 Units Tablet PO 2,000 units DAILY CESAR Administration Radiology Results: ITS Impressions Chest/Abdomen/Pelvis CT 07/21/24 07:04 Impression: Small right pleural effusion. 3 cm indeterminate left renal mass. Further evaluation with ultrasound or pre and postcontrast CT/MR advised. Cholelithiasis. Small amount of abdominopelvic ascites. Umbilical hernia which contains a focal small bowel. Head CT 07/21/24 17:53 IMPRESSION: 1. 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 Arterial/Peripheral Duplex 07/21/24 19:22 IMPRESSION: 1. Pulsatile antegrade flow in the portal veins, likely secondary to congestive heart failure. Chest X-Ray 07/25/24 06:10 IMPRESSION: 1. Mild atelectasis in the lower lung zones. 2. Cardiomegaly. Abdomen X-Ray 07/26/24 17:36 IMPRESSION: NG tube, in good position. Modified Barium Swallow 07/27/24 08:21 IMPRESSION: 1. No laryngeal penetration or aspiration. 2. Please refer to the speech therapy report for recommendations. Labs Labs: Laboratory Results - last 24 hr 07/28/24 07/28/24 07/28/24 11:45 16:39 19:55 WBC RBC Hgb Hct MCV MCH MCHC RDW Plt Count MPV Sodium Potassium Chloride Carbon Dioxide Anion Gap BUN Creatinine Estim Creat Clear Calc Estimated GFR Glucose POC Capillary Glucose 141 H 177 H 146 H Calcium 07/29/24 07/29/24 07:59 08:29 WBC 5.5 RBC 3.86 L Hgb 12.4 L Hct 40.7 L MCV 105.4 H MCH 32.1 MCHC 30.5 L RDW 17.5 H Plt Count 78 L MPV 11.7 H Sodium 135 L Potassium 4.5 Chloride 98 Carbon Dioxide 31 H Anion Gap 6 BUN 51 H Creatinine 6.60 H Estim Creat Clear Calc 9 Estimated GFR 10 L Glucose 156 H POC Capillary Glucose 217 H Calcium 9.4 Quality VTE Prophylaxis VTE prophylaxis: mechanical ordered
[2024-07-29 12:02] LABS: Glucose Point of Care 144 mg/dl (65-105)
[2024-07-29 14:00] VITALS: BP 120/64; PULSE 76; RESP 20; TEMP 36.6; O2SAT 97
--- NOTE | 2024-07-29 14:28 | PCPTNOTE ---
Attempted to see patient for Physical Therapy this date. Patient's was in the room and she reports that he just fell asleep. Patient's stated that he could be woke up to see if he wanted to do therapy. Patient stated that he would rather not do therapy. Patient fell back asleep as soon as the therapist finished talking to him. RN notified.
[2024-07-29 16:52] LABS: Glucose Point of Care 162 mg/dl (65-105)
[2024-07-29] MEDS: BENZONATATE 100 MG CAPSULE PO (16:57)
[2024-07-29 21:46] LABS: Glucose Point of Care 167 mg/dl (65-105)
[2024-07-29 21:50] VITALS: RESP 18
[2024-07-29 22:00] VITALS: BP 106/62; PULSE 74; RESP 20; TEMP 36.4; O2SAT 99
[2024-07-30] VITALS (21 sets, daily range): BP systolic 90–112; BP diastolic 43–65; PULSE 60–85; RESP 16–20; TEMP 36.2–37; O2SAT 97–100
[2024-07-30] MEDS: ATORVASTATIN 10 MG TABLET PO (07:55)
[2024-07-30] MEDS: CALCIUM ACETATE 667 MG TABLET 1334 MG PO ×3 (07:55→16:27)
[2024-07-30] MEDS: MIDODRINE HCL 10 MG TABLET PO (07:55)
[2024-07-30] MEDS: BUMETANIDE 1 MG TABLET PO ×2 (07:56→16:27)
[2024-07-30] MEDS: CYANOCOBALAMIN 1,000 MCG TABLET 1000 MCG PO (07:56)
[2024-07-30] MEDS: CHOLECALCIFEROL 1,000 UNITS TABLET 2000 UNITS PO (07:56)
[2024-07-30] MEDS: APIXABAN 2.5 MG TABLET PO ×2 (07:56→19:56)
[2024-07-30] MEDS: allopurinoL 100 MG TABLET PO (07:56)
[2024-07-30] MEDS: calcitrioL 0.25 MCG CAPSULE PO (08:01)
[2024-07-30] MEDS: BENZONATATE 100 MG CAPSULE PO (08:01)
[2024-07-30 08:04] LABS: Glucose Point of Care 129 mg/dl (65-105)
--- NOTE | 2024-07-30 08:35 | PC.NURSE ---
To Dialysis per hospital bed.
[2024-07-30 09:08] LABS: Hematocrit 40.4 % (42.0-52.0); Hemoglobin 12.8 g/dL (14.0-18.0); Immature Platelet Fraction Pct 7.2 % (0.9-11.2); Mean Corpuscular HGB Conc 31.7 g/dl (32-36); Mean Corpuscular Hemoglobin 32.4 pg (26-34); Mean Corpuscular Volume 102.3 fl (80-100); Mean Platelet Volume 12.4 fl (7.4-10.4); Platelet Count Result 74 k/mm3 (150-375); Red Blood Count 3.95 M/mm3 (4.6-6.20); Red Cell Distribution Width 17.2 % (11.5-14.5); White Blood Count 5.5 K/mm3 (4.5-10.0)
--- NOTE | 2024-07-30 09:09 | P.PNNP_ITS ---
Progress Note: A&P Assessment and Plan (1) End-stage renal disease (ESRD): Code(s): N18.6 - End stage renal disease Status: Chronic Assessment and Plan: * HD is due today. * He gets it this morning * fluid status looks okay * Will try to take off 1-2 L. * Electrolytes have been okay. * Volume status looks euvolemic (2) Hyperkalemia: Code(s): E87.5 - Hyperkalemia Status: Resolved Assessment and Plan: * resolved (3) Altered mental status: Qualifiers: Altered mental status type: disorientation Qualified Code(s): R41.0 - Disorientation, unspecified Code(s): R41.82 - Altered mental status, unspecified Status: Acute Assessment and Plan: * Encephalopathy * This seems resolved Okay for discharge from the kidney standpoint (4) Hypotension: Code(s): I95.9 - Hypotension, unspecified Status: Chronic Assessment and Plan: * chronic issue at baseline * on midodrine therapy * Blood pressure good today (5) Anemia: Qualifiers: Anemia type: unspecified type Qualified Code(s): D64.9 - Anemia, unspecified Code(s): D64.9 - Anemia, unspecified Status: Chronic Assessment and Plan: * due to ESRD * hb stable in mid 12 range * No Epogen needed. 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 Sitting up at the side of the bed eating breakfast. He will get dialysis today Exam Narrative: WDWN in NAD skin no rash Or subcu nodules head ncat lungs clear to auscultation cor reg no rub or gallop abd BS+ without tenderness or HSM ext no edema or cyanosis Objective Data Vital Signs Vital Signs: Vital Signs - 24 hr 07/29/24 14:00 07/29/24 21:50 07/29/24 22:00 Temperature 97.8 F 97.5 F L Pulse Rate 76 74 Respiratory Rate 20 18 20 Blood Pressure 120/64 106/62 Pulse Oximetry 97 99 Oxygen Delivery 07/30/24 05:30 07/30/24 08:00 07/30/24 08:54 Temperature 97.2 F L Pulse Rate 74 67 Respiratory Rate 20 Blood Pressure 108/65 93/51 L Pulse Oximetry 98 Oxygen Delivery Room Air 07/30/24 09:00 Temperature Pulse Rate 60 Respiratory Rate Blood Pressure 97/49 L Pulse Oximetry Oxygen Delivery Intake/Output Intake/Output: Intake & Output 07/27/24 07/28/24 07/29/24 07/30/24 23:59 23:59 23:59 23:59 Intake Total 1360 1630 1160 600 Output Total 1999 4 5 Balance -640 1626 1155 600 Meds/Results Medications: Active Medications Generic Name Dose Route Start Last Admin Trade Name Freq PRN Reason Stop Dose Admin Acetaminophen 650 mg 07/21/24 12:38 Acetaminophen 325 Mg Tablet PO Q6H PRN Mild Pain (1-3) Or Fever Albuterol 2 puff 07/21/24 12:38 Albuterol Sulfate (*Sp) Aerosol 1 Puff INHALATION Q6HRT PRN sob/wheezing Allopurinol 100 mg 07/21/24 12:50 07/30/24 07:56 Allopurinol 100 Mg Tablet PO 100 mg DAILY CESAR Administration Apixaban 2.5 mg 07/21/24 12:50 07/30/24 07:56 Apixaban 2.5 Mg Tablet PO 2.5 mg Q12HR CESAR Administration Atorvastatin Calcium 10 mg 07/21/24 12:50 07/30/24 07:55 Atorvastatin 10 Mg Tablet PO 10 mg DAILY CESAR Administration Benzonatate 0 mg 07/21/24 12:40 07/30/24 08:01 Benzonatate 100 Mg Capsule PO 200 mg TID PRN Administration Cough Bumetanide 1 mg 07/21/24 17:00 07/30/24 07:56 Bumetanide 1 Mg Tablet PO 1 mg BID CESAR Administration Calcitriol 0.25 mcg 07/21/24 13:00 07/30/24 08:01 Calcitriol 0.25 Mcg Capsule PO 0.25 mcg [id number] CESAR Administration Calcium Acetate 1,334 mg 07/21/24 12:00 07/30/24 07:55 Calcium Acetate 667 Mg Tablet PO 1,334 mg TIDWM CESAR Administration Cyanocobalamin 1,000 mcg 07/21/24 12:50 07/30/24 07:56 Cyanocobalamin 1,000 Mcg Tablet PO 1,000 mcg DAILY CESAR Administration Dextrose 12.5 gm 07/21/24 08:12 Dextrose 50% 25 Gm/50 Ml Syringe IV PUSH PRN PRN Hypoglycemia Protocol Dextrose 12.5 gm 07/21/24 12:35 Dextrose 50% 25 Gm/50 Ml Syringe IV PUSH PRN PRN Hypoglycemia Protocol Ferrous Sulfate 650 mg 07/21/24 13:00 07/29/24 09:16 Ferrous Sulfate [address] PO 650 mg Q48HR CESAR Administration Glucagon 1 mg 07/21/24 12:35 Glucagon For Inj 1 Mg Vial IM PRN PRN Hypoglycemia Protocol Glucose 15 gm 07/21/24 12:35 Glucose Oral Gel 15 Gm Of Glucse In 37.5 Gm Tube PO PRN PRN Hypoglycemia Protocol Albumin Human 50 mls @ 999 mls/hr 07/21/24 08:43 Albutein IVPB 08/20/24 08:42 Q10M PRN HYPOTENSION Dextrose 1,000 mls @ 100 mls/hr 07/21/24 12:35 Dextrose 5% 1,000 Ml IVPB PRN PRN Hypoglycemia Protocol Insulin Aspart 4 - 8 units 07/28/24 08:00 07/30/24 07:59 Insulin Aspart (*Bkc) 100 Units/Ml SUB-Q Not Given ACINSULIN [facility] Protocol Lactulose 20 gm 07/21/24 18:00 07/30/24 07:57 Lactulose 20 Gm/30 Ml Udc PO Not Given TID CESAR Midodrine 10 mg 07/21/24 12:43 07/30/24 07:55 Midodrine Hcl 10 Mg Tablet PO 10 mg DAILY PRN Administration Hypotension with dialysis Miscellaneous Information 0 each 07/21/24 00:01 07/28/24 08:48 Liraglutide [Victoza 2-Vidal] 0.6 Mg/0.1 Ml = Non Formulary XX 08/20/24 00:00 Not Given CLARIFY CESAR Non-Formulary Medication 1.2 mg 07/22/24 09:00 Liraglutide [Victoza 2-Vidal] SUB-Q 08/21/24 08:59 DAILY [facility] Ondansetron HCl 4 mg 07/21/24 08:12 Ondansetron Inj 4 Mg/2 Ml Vial IV PUSH Q4H PRN Nausea Fluticasone/Salmeterol 2 puff 07/21/24 20:00 07/29/24 21:45 Fluticasone/Salmeterol 115-21 Mcg Inhaler 1 Puff INHALATION 2 puff Q12HRT CESAR Administration Vitamin D 2,000 units 07/21/24 12:50 07/30/24 07:56 Cholecalciferol 1,000 Units Tablet PO 2,000 units DAILY CESAR Administration Radiology Results: ITS Impressions Chest/Abdomen/Pelvis CT 07/21/24 07:04 Impression: Small right pleural effusion. 3 cm indeterminate left renal mass. Further evaluation with ultrasound or pre and postcontrast CT/MR advised. Cholelithiasis. Small amount of abdominopelvic ascites. Umbilical hernia which contains a focal small bowel. Head CT 07/21/24 17:53 IMPRESSION: 1. 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 Arterial/Peripheral Duplex 07/21/24 19:22 IMPRESSION: 1. Pulsatile antegrade flow in the portal veins, likely secondary to congestive heart failure. Chest X-Ray 07/25/24 06:10 IMPRESSION: 1. Mild atelectasis in the lower lung zones. 2. Cardiomegaly. Abdomen X-Ray 07/26/24 17:36 IMPRESSION: NG tube, in good position. Modified Barium Swallow 07/27/24 08:21 IMPRESSION: 1. No laryngeal penetration or aspiration. 2. Please refer to the speech therapy report for recommendations. Labs Labs: Laboratory Results - last 24 hr 07/29/24 07/29/24 07/29/24 11:47 16:48 21:27 POC Capillary Glucose 144 H 162 H 167 H 07/30/24 07:47 POC Capillary Glucose 129 H
--- NOTE | 2024-07-30 10:24 | PCPTNOTE ---
The patient treatment was not able to be completed this morning on 07/30/2024 due to patient out of the room for dialysis. Will plan to continue treatment per plan of care.
[2024-07-30] MEDS: FLUTICASONE/SALMETEROL 115-21 MCG INHALER 1 PUFF 2 PUFF INHALATION ×2 (10:44→20:15)
--- NOTE | 2024-07-30 12:11 | PCNFU ---
Nutrition Follow-Up Complete: Inadequate energy intake related to NPO status as evidenced by current diet orders Goal:Meet estimated needs Advance diet via PO when able to Pt current nutrition is Renal diet, Nepro shakes BID. Nutrition recommendation: continue with current plan of care Last recorded weight is 97.2 kg. Bowel Motility: +BM 07/30 Labs Reviewed: Hgb:10.8, HCT:40.4, GFR:10, BUN:51, Cr:6.6, Glu:129 Meds Noted: eliquis, insulin, bumex, phoslo Skin: WNL Additional Notes: Pt has advanced to a renal diet, intake good at 50-100% most meals, Nepro shakes BID in place for supplement. Encourage po intake. Monitor intake, wt, labs. Follow upin 7 days
--- NOTE | 2024-07-30 12:32 | PM.DS ---
DS: Admitting Diagnosis Discharge Date 07/30/2024 Admitting Diagnosis Altered mental status DS: Discharge Diagnosis Discharge Diagnosis (1) Altered mental status: Qualifiers: Altered mental status type: disorientation Qualified Code(s): R41.0 - Disorientation, unspecified Code(s): R41.82 - Altered mental status, unspecified Status: Acute (2) Increased ammonia level: Code(s): R79.89 - Other specified abnormal findings of blood chemistry Status: Acute (3) Dysphagia: Code(s): R13.10 - Dysphagia, unspecified Status: Acute (4) Acute on chronic diastolic CHF (congestive heart failure): Code(s): I50.33 - Acute on chronic diastolic (congestive) heart failure Status: Acute (5) ESRD (end stage renal disease) on dialysis: Code(s): N18.6 - End stage renal disease; Z99.2 - Dependence on renal dialysis Status: Acute (6) Diabetes: Qualifiers: Diabetes mellitus type: type 2 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 He did not meet SIRS criteria but lactic acid was elevated to 2.5. CT head showed no significant abnormalities. Could not obtain MRI brain but repeat CT brain showed no acute findings. Chest x-ray showed central congestive changes and pulmonary edema. Viral PCR was negative. Urine culture negative blood culture negative. CT chest abdomen pelvis showing small right pleural effusion, 3 cm indeterminate left renal mass, cholelithiasis, small amount of abdominal pelvic ascites and umbilical hernia which contains a focal small bowel (easily reducible). Ammonia level came back elevated at 122. ABG 7.4 04/03/2069 on room air. TSH folate and B12 was normal. Troponin flat with 0.028-0.031. Suspected altered mental status secondary to ammonia levels. Treated with lactulose with improvement in mental status. Initially had tube put NG tube. NG tube has now been discontinued. Patient has no history of cirrhosis or ethyl alcohol abuse. Total bilirubin was 3.3 on admission with normal LFTs. Total bilirubin trended down. Ultrasound retroperitoneal duplex showed pulsatile antegrade flow in the portal veins secondary to CHF. CT showing small amount of abdominal and pelvic ascites but no abnormality seen of the liver. Echo showed normal LV with hyperdynamic systolic function ejection fraction more than 70%, severely dilated RV with reduced systolic function, RV pressure overload significantly elevated RAP. Biatrial enlargement. There is a small mobile echodensity in the RA possibly an eustachian valve. He underwent PT OT evaluation and required further rehabilitation which was arranged with the help of care coordination. He continued hemodialysis during hospital stay with nephrology consultation. Chronic AFib off Coreg due to bradycardia. On apixaban now. Heart rate stable Chronic back pain status post back stimulator. This probably related to his back pain. Advised to see pain management/spine surgeon for further evaluation as an outpatient basis. Hypertension Thrombocytopenia mild chronic Congestive heart failure chronic diastolic well compensated End-stage renal disease on hemodialysis inpatient hemodialysis per nephrology Chronic anemia with no obvious bleeding. Type 2 diabetes: SSI DVT prophylaxis on apixaban Code status full code Time Spent with Patient Time attestation: Total time spent providing and/or coordinating discharge services: 40 minutes Exam Narrative: Gen - NARD undergoing HD. HEENT -NAD Chest - lungs clear anteriorly. Right upper chest dialysis cath in situ CV - RRR S1/S2 Abd - Soft, obese, NT Ext - no significant pedal edema. LUE fistula accessed Neuro - alert and appropriate Skin - Warm and dry DS: Data Data Completed and Pending Completed studies during hospitalization: Exam Type: CA echo doppler color flow Study Info Complete two-dimensional, color flow and Doppler transthoracic echocardiogram is performed. Summary 1. Complete two-dimensional, color flow and Doppler transthoracic echocardiogram is performed. 2. The left ventricle is normal in size with hyperdynamic systolic function. The left ventricular ejection fraction is visually estimated to be greater than 70%. 3. The right ventricle is severely dilated with reduced systolic function. 4. There is septal flattening during systole consistent with right ventricular pressure overload. 5. Dilated inferior vena cava with <50% collapse upon inspiration consistent with significantly elevated right atrial pressure, 15 mmHg. Left Ventricle The left ventricle is normal in size with hyperdynamic systolic function. The left ventricular ejection fraction is visually estimated to be greater than 70%. Right Ventricle The right ventricle is severely dilated with reduced systolic function. Ventricular Septum There is septal flattening during systole consistent with right ventricular pressure overload. Left Atria The left atrium is moderately dilated. Right Atria There is a small mobile echodensity in the right atrium that is possibly a eustachian valve. The right atrium is dilated. Atrial Septum The atrial septum is not well visualized. Recommend bubble study is indicated. Aortic Valve The aortic valve is trileaflet and thickened but opens well. There is no aortic regurgitation. Pulmonic Valve The pulmonic valve is grossly normal. There is mild pulmonic valve regurgitation. Mitral Valve The mitral valve leaflets are thickened. There is trace mitral regurgitation. Tricuspid Valve The tricuspid valve leaflets are thickened. There is at least moderate tricuspid regurgitation. Pericardium/Pleural There is no pericardial effusion in the available views. Inferior Vena Cava Dilated inferior vena cava with <50% collapse upon inspiration consistent with significantly elevated right atrial pressure, 15 mmHg. Aorta The aortic root at the level of the sinus of Valsalva measures 3.5 cm in diameter. Labs on day of discharge: Labs from last 24 hours 07/30/24 07/30/24 07/29/24 08:21 07:47 21:27 WBC 5.5 RBC 3.95 L Hgb 12.8 L Hct 40.4 L MCV 102.3 H MCH 32.4 MCHC 31.7 L RDW 17.2 H Plt Count 74 L MPV 12.4 H % Immature Plt Fraction 7.2 Sodium Pending Potassium Pending Chloride Pending Carbon Dioxide Pending Anion Gap Pending BUN Pending Creatinine Pending Estim Creat Clear Calc Pending Estimated GFR Pending Glucose Pending POC Capillary Glucose 129 H 167 H Calcium Pending 07/29/24 16:48 WBC RBC Hgb Hct MCV MCH MCHC RDW Plt Count MPV % Immature Plt Fraction Sodium Potassium Chloride Carbon Dioxide Anion Gap BUN Creatinine Estim Creat Clear Calc Estimated GFR Glucose POC Capillary Glucose 162 H Calcium Imaging Radiologist's impression: ITS Impressions Head CT 07/21/24 07:00 Impression: No significant abnormality seen. Chest/Abdomen/Pelvis CT 07/21/24 07:04 Impression: Small right pleural effusion. 3 cm indeterminate left renal mass. Further evaluation with ultrasound or pre and postcontrast CT/MR advised. Cholelithiasis. Small amount of abdominopelvic ascites. Umbilical hernia which contains a focal small bowel. Chest X-Ray 07/21/24 07:12 Impression: Central congestive change and probable mild bibasilar pulmonary edema. Discoid left mid lung atelectasis. Stable support line. Head CT 07/21/24 17:53 IMPRESSION: 1. 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 Abdomen X-Ray 07/21/24 18:21 IMPRESSION: 1. Nasogastric tube tip in the stomach. Arterial/Peripheral Duplex 07/21/24 19:22 IMPRESSION: 1. Pulsatile antegrade flow in the portal veins, likely secondary to congestive heart failure. Modified Barium Swallow 07/24/24 11:57 IMPRESSION: 1. No laryngeal penetration or aspiration. 2. Please refer to the speech therapy report for recommendations. Chest X-Ray 07/25/24 06:10 IMPRESSION: 1. Mild atelectasis in the lower lung zones. 2. Cardiomegaly. Abdomen X-Ray 07/25/24 06:18 IMPRESSION: 1. Nasogastric tube tip in the stomach. Abdomen X-Ray 07/26/24 17:36 IMPRESSION: NG tube, in good position. Modified Barium Swallow 07/27/24 08:21 IMPRESSION: 1. No laryngeal penetration or aspiration. 2. Please refer to the speech therapy report for recommendations. Discharge Plan Discharge Attending physician on discharge: Vijay Goldsmith Consulting providers: Brittany Johnson Discharging Clinician: Vijay Goldsmith Anticipated Discharge Date/Time: 07/30/24 12:39 Patient Disposition: SNF Activity: as tolerated Diet: heart healthy and renal Patient Instructions: Apixaban (By mouth), Heart Failure (ED) Patient Language: Irish Stand Alone Forms: General Discharge Information, Mcfp Discharge Follow-up/Referrals: Ramez Ching MD [Primary Care Provider] - 1 Week Brittany Johnson MD [Physician] - Keep Reg. Scheduled Appt. Discharge Medications: New lactulose 20 gram/30 mL Solution 20 g PO BID Qty: 300 0RF Rx Instructions: titrate dose to have at least 2 bm per day Continued cholecalciferol (vitamin D3) 50 mcg (2,000 unit) capsule 50 mcg PO DAILY cyanocobalamin (vitamin B-12) 1,000 mcg Capsule 1,000 mcg PO DAILY midodrine 10 mg Tablet 10 mg PO WITH DIALYSIS PRN (Reason: hypotension with dialysis) Qty: 12 0RF calcium acetate(phosphat bind) 667 mg tablet 1,334 mg PO TIDWM albuterol sulfate 90 mcg/actuation HFA aerosol inhaler 2 puff inhalation Q6H PRN (Reason: sob/wheezing) liraglutide [Victoza 2-Vidal] 0.6 mg/0.1 mL (18 mg/3 mL) pen injector 1.2 mg subcut DAILY acetaminophen 325 mg Tablet 650 mg PO Q6H PRN (Reason: Mild Pain (1-3) Or Fever) Qty: 30 0RF fluticasone propion-salmeterol [Advair Diskus] 250-50 mcg/dose blister with device 1 inh inhalation Q12H fluticasone propion-salmeterol [Advair Diskus] 250-50 mcg/dose blister with device 1 inh inhalation Q12H calcitriol 0.25 mcg capsule 0.25 mcg PO 4XW Qty: 48 4RF Rx Instructions: Take on Mondays, Wednesdays, Fridays, and Sundays ferrous sulfate [FeroSul] 325 mg (65 mg iron) tablet 650 mg PO EVERY OTHER DAY Qty: 90 1RF atorvastatin 10 mg tablet 10 mg PO DAILY Qty: 90 2RF Eliquis 2.5 mg tablet 2.5 mg PO Q12HR Qty: 180 1RF allopurinol 100 mg tablet 100 mg PO DAILY Qty: 90 3RF bumetanide 1 mg tablet 1 mg PO BID Qty: 60 5RF benzonatate 100 mg capsule See Rx Instructions .ROUTE .COMPLEX Qty: 60 0RF Dose Instruction: TAKE 1 TO 2 CAPSULES BY MOUTH THREE TIMES DAILY NEEDED FOR COUGH . DO NOT EXCEED 6 PER 24 HOURS Rx Instructions: TAKE 1 TO 2 CAPSULES BY MOUTH THREE TIMES DAILY NEEDED FOR COUGH . DO NOT EXCEED 6 PER 24 HOURS Discontinued gabapentin 300 mg capsule 300 mg PO HS hydrocodone-acetaminophen 5-325 mg tablet 1 tablet PO Q8H PRN (Reason: pain) Qty: 10 0RF Date of admission: 07/21/24 08:12 Primary Care Provider: Ramez Ching Admitting Provider: Sanjay Schneider Attending physician on admission: Sanjay Schneider Condition: Stable
--- NOTE | 2024-07-30 13:10 | PC.NURSE ---
Returned to room per hospital bed from Dialysis.
[2024-07-30 13:16] LABS: Glucose Point of Care 137 mg/dl (65-105)
[2024-07-30 13:38] LABS: Anion Gap 1 mmol/L (4-12); Blood Urea Nitrogen 15 mg/dL (9-20); Calcium 8.3 mg/dL (8.4-10.2); Carbon Dioxide 37 mmol/L (22-30); Chloride 97 mmol/L (98-107); Estimated CRCL calculation 28 ml/min; Estimated Glomerular Filt Rate 37; Glucose 114 mg/dL (65-110); Potassium 3.4 mmol/L (3.4-5.0); Sodium 135 mmol/L (137-145)
[2024-07-30 16:36] LABS: Glucose Point of Care 191 mg/dl (65-105)
--- NOTE | 2024-07-30 17:50 | P.PNIM_ITS ---
Progress Note: A&P Assessment and Plan (1) Altered mental status: Qualifiers: Altered mental status type: disorientation Qualified Code(s): R41.0 - Disorientation, unspecified Code(s): R41.82 - Altered mental status, unspecified Status: Acute (2) Increased ammonia level: Code(s): R79.89 - Other specified abnormal findings of blood chemistry Status: Acute (3) Dysphagia: Code(s): R13.10 - Dysphagia, unspecified Status: Acute (4) Acute on chronic diastolic CHF (congestive heart failure): Code(s): I50.33 - Acute on chronic diastolic (congestive) heart failure Status: Acute (5) ESRD (end stage renal disease) on dialysis: Code(s): N18.6 - End stage renal disease; Z99.2 - Dependence on renal dialysis Status: Acute (6) Diabetes: Qualifiers: Diabetes mellitus type: type 2 Diabetes mellitus manager long term care insulin use: without manager long term care use Diabetes mellitus complication status: with kidney complications Diabetes mellitus complication detail: with chronic kidney disease Chronic kidney disease stage: on chronic dialysis Qualified Code(s): E11.22 - Type 2 diabetes mellitus with diabetic chronic kidney disease; N18.6 - End stage renal disease; Z99.2 - Dependence on renal dialysis Code(s): E11.9 - Type 2 diabetes mellitus without complications Status: Chronic Plan This is 84-year-old male who presents to the ED with altered mental status on 07/21/2024. He did not meet SIRS criteria but lactic acid was elevated to 2.5. CT head showed no significant abnormalities. Could not obtain MRI brain but repeat CT brain showed no acute findings. Chest x-ray showed central congestive changes and pulmonary edema. Viral PCR was negative. Urine culture negative blood culture negative. CT chest abdomen pelvis showing small right pleural effusion, 3 cm indeterminate left renal mass, cholelithiasis, small amount of abdominal pelvic ascites and umbilical hernia which contains a focal small bowel (easily reducible). Ammonia level came back elevated at 122. ABG 7.4 04/03/2069 on room air. TSH folate and B12 was normal. Troponin flat with 0.028-0.031. Suspected altered mental status secondary to ammonia levels. Treated with lactulose with improvement in mental status. Initially had tube put NG tube. NG tube has now been discontinued. Patient has no history of cirrhosis or ethyl alcohol abuse. Total bilirubin was 3.3 on admission with normal LFTs. Total bilirubin trended down. Ultrasound retroperitoneal duplex showed pulsatile antegrade flow in the portal veins secondary to CHF. CT showing small amount of abdominal and pelvic ascites but no abnormality seen of the liver. Echo showed normal LV with hyperdynamic systolic function ejection fraction more than 70%, severely dilated RV with reduced systolic function, RV pressure overload significantly elevated RAP. Biatrial enlargement. There is a small mobile echodensity in the RA possibly an eustachian valve. He underwent PT OT evaluation and required further rehabilitation which was arranged with the help of care coordination. He continued hemodialysis during hospital stay with nephrology consultation. Chronic AFib off Coreg due to bradycardia. On apixaban now. Heart rate stable Chronic back pain status post back stimulator. This probably related to his back pain. Advised to see pain management/spine surgeon for further evaluation as an outpatient basis. Hypertension Thrombocytopenia mild chronic Congestive heart failure chronic diastolic well compensated End-stage renal disease on hemodialysis inpatient hemodialysis per nephrology Chronic anemia with no obvious bleeding. Type 2 diabetes: SSI DVT prophylaxis on apixaban Code status full code Subjective Date/time seen: 07/30/24 17:50 Interval history: patient planned for the discharge today however was not able to be done due to insurance authorization. He is overall feeling better was seen during the dialysis earlier today. Review of Systems Review of Systems: All systems reviewed & are unremarkable except as noted in HPI and below Exam Narrative: Gen - NARD undergoing HD. HEENT -NAD Chest - lungs clear anteriorly. Right upper chest dialysis cath in situ CV - RRR S1/S2 Abd - Soft, obese, NT Ext - no significant pedal edema. LUE fistula accessed Neuro - alert and appropriate Skin - Warm and dry Objective Data Vital Signs Vital Signs: Vital Signs - 24 hr 07/29/24 21:50 07/29/24 22:00 07/30/24 05:30 Temperature 97.5 F L 97.2 F L Pulse Rate 74 74 Respiratory Rate 18 20 20 Blood Pressure 106/62 108/65 Pulse Oximetry 99 98 Oxygen Delivery 07/30/24 08:00 07/30/24 08:41 07/30/24 08:54 Temperature 98.2 F Pulse Rate 68 67 Respiratory Rate 18 Blood Pressure 97/43 L 93/51 L Pulse Oximetry 100 Oxygen Delivery Room Air 07/30/24 09:00 07/30/24 09:15 07/30/24 09:30 Temperature Pulse Rate 60 66 62 Respiratory Rate Blood Pressure 97/49 L 103/54 L 102/56 L Pulse Oximetry Oxygen Delivery 07/30/24 09:45 07/30/24 10:00 07/30/24 10:15 Temperature Pulse Rate 60 61 62 Respiratory Rate Blood Pressure 107/54 L 109/56 L 97/50 L Pulse Oximetry Oxygen Delivery 07/30/24 10:45 07/30/24 10:45 07/30/24 11:00 Temperature Pulse Rate 65 63 64 Respiratory Rate 18 Blood Pressure 90/46 L 93/49 L Pulse Oximetry Oxygen Delivery 07/30/24 11:30 07/30/24 11:45 07/30/24 12:00 Temperature Pulse Rate 66 68 67 Respiratory Rate Blood Pressure 111/50 L 93/49 L 102/49 L Pulse Oximetry Oxygen Delivery 07/30/24 12:15 07/30/24 12:28 07/30/24 12:56 Temperature 97.7 F Pulse Rate 71 72 66 Respiratory Rate 16 Blood Pressure 93/54 L 100/55 L 97/45 L Pulse Oximetry 97 Oxygen Delivery 07/30/24 14:00 Temperature 97.5 F L Pulse Rate 85 Respiratory Rate 18 Blood Pressure 112/50 L Pulse Oximetry 99 Oxygen Delivery Intake/Output Intake/Output: Intake & Output 07/27/24 07/28/24 07/29/24 07/30/24 23:59 23:59 23:59 23:59 Intake Total 1360 1630 1160 1080 Output Total 1999 4 5 6870 [facility] -627 1626 1814 -6027 Meds/Results Medications: Active Medications Generic Name Dose Route Start Last Admin Trade Name Freq PRN Reason Stop Dose Admin Acetaminophen 650 mg 07/21/24 12:38 Acetaminophen 325 Mg Tablet PO Q6H PRN Mild Pain (1-3) Or Fever Albuterol 2 puff 07/21/24 12:38 Albuterol Sulfate (*Sp) Aerosol 1 Puff INHALATION Q6HRT PRN sob/wheezing Allopurinol 100 mg 07/21/24 12:50 07/30/24 07:56 Allopurinol 100 Mg Tablet PO 100 mg DAILY CESAR Administration Apixaban 2.5 mg 07/21/24 12:50 07/30/24 07:56 Apixaban 2.5 Mg Tablet PO 2.5 mg Q12HR CESAR Administration Atorvastatin Calcium 10 mg 07/21/24 12:50 07/30/24 07:55 Atorvastatin 10 Mg Tablet PO 10 mg DAILY CESAR Administration Benzonatate 0 mg 07/21/24 12:40 07/30/24 08:01 Benzonatate 100 Mg Capsule PO 200 mg TID PRN Administration Cough Bumetanide 1 mg 07/21/24 17:00 07/30/24 16:27 Bumetanide 1 Mg Tablet PO 1 mg BID CESAR Administration Calcitriol 0.25 mcg 07/21/24 13:00 07/30/24 08:01 Calcitriol 0.25 Mcg Capsule PO 0.25 mcg [id number] CESAR Administration Calcium Acetate 1,334 mg 07/21/24 12:00 07/30/24 16:27 Calcium Acetate 667 Mg Tablet PO 1,334 mg TIDWM CESAR Administration Cyanocobalamin 1,000 mcg 07/21/24 12:50 07/30/24 07:56 Cyanocobalamin 1,000 Mcg Tablet PO 1,000 mcg DAILY CESAR Administration Dextrose 12.5 gm 07/21/24 08:12 Dextrose 50% 25 Gm/50 Ml Syringe IV PUSH PRN PRN Hypoglycemia Protocol Dextrose 12.5 gm 07/21/24 12:35 Dextrose 50% 25 Gm/50 Ml Syringe IV PUSH PRN PRN Hypoglycemia Protocol Ferrous Sulfate 650 mg 07/21/24 13:00 07/29/24 09:16 Ferrous Sulfate [address] PO 650 mg Q48HR CESAR Administration Glucagon 1 mg 07/21/24 12:35 Glucagon For Inj 1 Mg Vial IM PRN PRN Hypoglycemia Protocol Glucose 15 gm 07/21/24 12:35 Glucose Oral Gel 15 Gm Of Glucse In 37.5 Gm Tube PO PRN PRN Hypoglycemia Protocol Albumin Human 50 mls @ 999 mls/hr 07/21/24 08:43 Albutein IVPB 08/20/24 08:42 Q10M PRN HYPOTENSION Dextrose 1,000 mls @ 100 mls/hr 07/21/24 12:35 Dextrose 5% 1,000 Ml IVPB PRN PRN Hypoglycemia Protocol Insulin Aspart 4 - 8 units 07/28/24 08:00 07/30/24 16:25 Insulin Aspart (*Bkc) 100 Units/Ml SUB-Q Not Given ACINSULIN [facility] Protocol Lactulose 20 gm 07/21/24 18:00 07/30/24 17:13 Lactulose 20 Gm/30 Ml Udc PO Not Given TID CESAR Midodrine 10 mg 07/21/24 12:43 07/30/24 07:55 Midodrine Hcl 10 Mg Tablet PO 10 mg DAILY PRN Administration Hypotension with dialysis Miscellaneous Information 0 each 07/21/24 00:01 07/28/24 08:48 Liraglutide [Victoza 2-Vidal] 0.6 Mg/0.1 Ml = Non Formulary XX 08/20/24 00:00 Not Given CLARIFY CESAR Non-Formulary Medication 1.2 mg 07/22/24 09:00 Liraglutide [Victoza 2-Vidal] SUB-Q 08/21/24 08:59 DAILY CESAR Ondansetron HCl 4 mg 07/21/24 08:12 Ondansetron Inj 4 Mg/2 Ml Vial IV PUSH Q4H PRN Nausea Fluticasone/Salmeterol 2 puff 07/21/24 20:00 07/30/24 10:44 Fluticasone/Salmeterol 115-21 Mcg Inhaler 1 Puff INHALATION 2 puff Q12HRT CESAR Administration Vitamin D 2,000 units 07/21/24 12:50 07/30/24 07:56 Cholecalciferol 1,000 Units Tablet PO 2,000 units DAILY CESAR Administration Radiology Results: ITS Impressions Chest/Abdomen/Pelvis CT 07/21/24 07:04 Impression: Small right pleural effusion. 3 cm indeterminate left renal mass. Further evaluation with ultrasound or pre and postcontrast CT/MR advised. Cholelithiasis. Small amount of abdominopelvic ascites. Umbilical hernia which contains a focal small bowel. Head CT 07/21/24 17:53 IMPRESSION: 1. 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 Arterial/Peripheral Duplex 07/21/24 19:22 IMPRESSION: 1. Pulsatile antegrade flow in the portal veins, likely secondary to congestive heart failure. Chest X-Ray 07/25/24 06:10 IMPRESSION: 1. Mild atelectasis in the lower lung zones. 2. Cardiomegaly. Abdomen X-Ray 07/26/24 17:36 IMPRESSION: NG tube, in good position. Modified Barium Swallow 07/27/24 08:21 IMPRESSION: 1. No laryngeal penetration or aspiration. 2. Please refer to the speech therapy report for recommendations. Labs Labs: Laboratory Results - last 24 hr 07/29/24 07/30/24 07/30/24 21:27 07:47 08:21 WBC 5.5 RBC 3.95 L Hgb 12.8 L Hct 40.4 L MCV 102.3 H MCH 32.4 MCHC 31.7 L RDW 17.2 H Plt Count 74 L MPV 12.4 H % Immature Plt Fraction 7.2 Sodium Potassium Chloride Carbon Dioxide Anion Gap BUN Creatinine Estim Creat Clear Calc Estimated GFR Glucose POC Capillary Glucose 167 H 129 H Calcium 07/30/24 07/30/24 07/30/24 11:30 13:14 16:23 WBC RBC Hgb Hct MCV MCH MCHC RDW Plt Count MPV % Immature Plt Fraction Sodium 135 L Potassium 3.4 Chloride 97 L Carbon Dioxide 37 H Anion Gap 1 L BUN 15 D Creatinine 2.10 H Estim Creat Clear Calc 28 Estimated GFR 37 L Glucose 114 H POC Capillary Glucose 137 H 191 H Calcium 8.3 L
[2024-07-30 21:38] LABS: Glucose Point of Care 132 mg/dl (65-105)
[2024-07-31 05:59] VITALS: BP 107/62; PULSE 72; RESP 18; TEMP 36.6; O2SAT 98
--- NOTE | 2024-07-31 07:36 | P.PNNP_ITS ---
Progress Note: A&P Assessment and Plan (1) End-stage renal disease (ESRD): Code(s): N18.6 - End stage renal disease Status: Chronic Assessment and Plan: * HD was done yesterday. * He will get this treatment tomorrow whether here or at [facility]. * Discharge was delayed because having to remove the PermCath. * Volume status looks fine. * Electrolytes look okay (2) Hyperkalemia: Code(s): E87.5 - Hyperkalemia Status: Resolved Assessment and Plan: * resolved (3) Altered mental status: Qualifiers: Altered mental status type: disorientation Qualified Code(s): R41.0 - Disorientation, unspecified Code(s): R41.82 - Altered mental status, unspecified Status: Acute Assessment and Plan: * Resolved Okay for discharge from the kidney standpoint once the catheter is out (4) Hypotension: Code(s): I95.9 - Hypotension, unspecified Status: Chronic Assessment and Plan: * chronic issue at baseline * on midodrine therapy * Blood pressure good today (5) Anemia: Qualifiers: Anemia type: unspecified type Qualified Code(s): D64.9 - Anemia, unspecified Code(s): D64.9 - Anemia, unspecified Status: Chronic Assessment and Plan: * due to ESRD * hb stable in mid 12 range * No Epogen needed. * Iron levels being followed by dialysis unit (6) Diabetes: Qualifiers: Diabetes mellitus type: type 2 Diabetes mellitus detention insulin use: without technician terminal and repeater use Diabetes mellitus complication status: with kidney complications Diabetes mellitus complication detail: with chronic kidney disease Chronic kidney disease stage: on chronic dialysis Qualified Code(s): E11.22 - Type 2 diabetes mellitus with diabetic chronic kidney disease; N18.6 - End stage renal disease; Z99.2 - Dependence on renal dialysis Code(s): E11.9 - Type 2 diabetes mellitus without complications Status: Chronic Assessment and Plan: * follow accu-cheks * glycemic control per hospitalists Subjective Date/time seen: 07/31/24 07:36 Interval history: Khalif is feeling well today. No chest pain or shortness Exam Narrative: WDWN in NAD skin no rash head ncat lungs clear bilaterally cor reg no rub or gallop abd BS+ without tenderness or HSM ext no edema Objective Data Vital Signs Vital Signs: Vital Signs - 24 hr 07/30/24 08:00 07/30/24 08:41 07/30/24 08:54 Temperature 98.2 F Pulse Rate 68 67 Respiratory Rate 18 Blood Pressure 97/43 L 93/51 L Pulse Oximetry 100 Oxygen Delivery Room Air 07/30/24 09:00 07/30/24 09:15 07/30/24 09:30 Temperature Pulse Rate 60 66 62 Respiratory Rate Blood Pressure 97/49 L 103/54 L 102/56 L Pulse Oximetry Oxygen Delivery 07/30/24 09:45 07/30/24 10:00 07/30/24 10:15 Temperature Pulse Rate 60 61 62 Respiratory Rate Blood Pressure 107/54 L 109/56 L 97/50 L Pulse Oximetry Oxygen Delivery 07/30/24 10:45 07/30/24 10:45 07/30/24 11:00 Temperature Pulse Rate 65 63 64 Respiratory Rate 18 Blood Pressure 90/46 L 93/49 L Pulse Oximetry Oxygen Delivery 07/30/24 11:30 07/30/24 11:45 07/30/24 12:00 Temperature Pulse Rate 66 68 67 Respiratory Rate Blood Pressure 111/50 L 93/49 L 102/49 L Pulse Oximetry Oxygen Delivery 07/30/24 12:15 07/30/24 12:28 07/30/24 12:56 Temperature 97.7 F Pulse Rate 71 72 66 Respiratory Rate 16 Blood Pressure 93/54 L 100/55 L 97/45 L Pulse Oximetry 97 Oxygen Delivery 07/30/24 14:00 07/30/24 20:00 07/30/24 20:18 Temperature 97.5 F L Pulse Rate 85 66 Respiratory Rate 18 18 Blood Pressure 112/50 L Pulse Oximetry 99 Oxygen Delivery Room Air 07/30/24 20:23 07/30/24 21:42 07/31/24 05:59 Temperature 98.6 F 97.8 F Pulse Rate 64 72 Respiratory Rate 20 18 Blood Pressure 110/64 107/62 Pulse Oximetry 98 99 98 Oxygen Delivery Room Air Intake/Output Intake/Output: Intake & Output 07/28/24 07/29/24 07/30/24 07/31/24 23:59 23:59 23:59 23:59 Intake Total 1630 1160 1080 0 Output Total 4 5 2324 Balance 1626 1155 -1244 0 Meds/Results Medications: Active Medications Generic Name Dose Route Start Last Admin Trade Name Freq PRN Reason Stop Dose Admin Acetaminophen 650 mg 07/21/24 12:38 Acetaminophen 325 Mg Tablet PO Q6H PRN Mild Pain (1-3) Or Fever Albuterol 2 puff 07/21/24 12:38 Albuterol Sulfate (*Sp) Aerosol 1 Puff INHALATION Q6HRT PRN sob/wheezing Allopurinol 100 mg 07/21/24 12:50 07/30/24 07:56 Allopurinol 100 Mg Tablet PO 100 mg DAILY CESAR Administration Apixaban 2.5 mg 07/21/24 12:50 07/30/24 19:56 Apixaban 2.5 Mg Tablet PO 2.5 mg Q12HR CESAR Administration Atorvastatin Calcium 10 mg 07/21/24 12:50 07/30/24 07:55 Atorvastatin 10 Mg Tablet PO 10 mg DAILY CESAR Administration Benzonatate 0 mg 07/21/24 12:40 07/30/24 08:01 Benzonatate 100 Mg Capsule PO 200 mg TID PRN Administration Cough Bumetanide 1 mg 07/21/24 17:00 07/30/24 16:27 Bumetanide 1 Mg Tablet PO 1 mg BID CESAR Administration Calcitriol 0.25 mcg 07/21/24 13:00 07/30/24 08:01 Calcitriol 0.25 Mcg Capsule PO 0.25 mcg [id number] CESAR Administration Calcium Acetate 1,334 mg 07/21/24 12:00 07/30/24 16:27 Calcium Acetate 667 Mg Tablet PO 1,334 mg TIDWM CESAR Administration Cyanocobalamin 1,000 mcg 07/21/24 12:50 07/30/24 07:56 Cyanocobalamin 1,000 Mcg Tablet PO 1,000 mcg DAILY CESAR Administration Dextrose 12.5 gm 07/21/24 08:12 Dextrose 50% 25 Gm/50 Ml Syringe IV PUSH PRN PRN Hypoglycemia Protocol Dextrose 12.5 gm 07/21/24 12:35 Dextrose 50% 25 Gm/50 Ml Syringe IV PUSH PRN PRN Hypoglycemia Protocol Ferrous Sulfate 650 mg 07/21/24 13:00 07/29/24 09:16 Ferrous Sulfate [address] PO 650 mg Q48HR CESAR Administration Glucagon 1 mg 07/21/24 12:35 Glucagon For Inj 1 Mg Vial IM PRN PRN Hypoglycemia Protocol Glucose 15 gm 07/21/24 12:35 Glucose Oral Gel 15 Gm Of Glucse In 37.5 Gm Tube PO PRN PRN Hypoglycemia Protocol Albumin Human 50 mls @ 999 mls/hr 07/21/24 08:43 Albutein IVPB 08/20/24 08:42 Q10M PRN HYPOTENSION Dextrose 1,000 mls @ 100 mls/hr 07/21/24 12:35 Dextrose 5% 1,000 Ml IVPB PRN PRN Hypoglycemia Protocol Insulin Aspart 4 - 8 units 07/28/24 08:00 07/30/24 16:25 Insulin Aspart (*Bkc) 100 Units/Ml SUB-Q Not Given ACINSULIN CESAR Protocol Lactulose 20 gm 07/21/24 18:00 07/30/24 17:13 Lactulose 20 Gm/30 Ml Udc PO Not Given TID CESAR Midodrine 10 mg 07/21/24 12:43 07/30/24 07:55 Midodrine Hcl 10 Mg Tablet PO 10 mg DAILY PRN Administration Hypotension with dialysis Miscellaneous Information 0 each 07/21/24 00:01 07/28/24 08:48 Liraglutide [Victoza 2-Vidal] 0.6 Mg/0.1 Ml = Non Formulary XX 08/20/24 00:00 Not Given CLARIFY [facility] Non-Formulary Medication 1.2 mg 07/22/24 09:00 Liraglutide [Victoza 2-Vidal] SUB-Q 08/21/24 08:59 DAILY [facility] Ondansetron HCl 4 mg 07/21/24 08:12 Ondansetron Inj 4 Mg/2 Ml Vial IV PUSH Q4H PRN Nausea Fluticasone/Salmeterol 2 puff 07/21/24 20:00 07/30/24 20:15 Fluticasone/Salmeterol 115-21 Mcg Inhaler 1 Puff INHALATION 2 puff Q12HRT CESAR Administration Vitamin D 2,000 units 07/21/24 12:50 07/30/24 07:56 Cholecalciferol 1,000 Units Tablet PO 2,000 units DAILY CESAR Administration Radiology Results: ITS Impressions Chest/Abdomen/Pelvis CT 07/21/24 07:04 Impression: Small right pleural effusion. 3 cm indeterminate left renal mass. Further evaluation with ultrasound or pre and postcontrast CT/MR advised. Cholelithiasis. Small amount of abdominopelvic ascites. Umbilical hernia which contains a focal small bowel. Head CT 07/21/24 17:53 IMPRESSION: 1. 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 Arterial/Peripheral Duplex 07/21/24 19:22 IMPRESSION: 1. Pulsatile antegrade flow in the portal veins, likely secondary to congestive heart failure. Chest X-Ray 07/25/24 06:10 IMPRESSION: 1. Mild atelectasis in the lower lung zones. 2. Cardiomegaly. Abdomen X-Ray 07/26/24 17:36 IMPRESSION: NG tube, in good position. Modified Barium Swallow 07/27/24 08:21 IMPRESSION: 1. No laryngeal penetration or aspiration. 2. Please refer to the speech therapy report for recommendations. Labs Labs: Laboratory Results - last 24 hr 07/30/24 07/30/24 07/30/24 07:47 08:21 11:30 WBC 5.5 RBC 3.95 L Hgb 12.8 L Hct 40.4 L MCV 102.3 H MCH 32.4 MCHC 31.7 L RDW 17.2 H Plt Count 74 L MPV 12.4 H % Immature Plt Fraction 7.2 Sodium 135 L Potassium 3.4 Chloride 97 L Carbon Dioxide 37 H Anion Gap 1 L BUN 15 D Creatinine 2.10 H Estim Creat Clear Calc 28 Estimated GFR 37 L Glucose 114 H POC Capillary Glucose 129 H Calcium 8.3 L 07/30/24 07/30/24 07/30/24 13:14 16:23 19:48 WBC RBC Hgb Hct MCV MCH MCHC RDW Plt Count MPV % Immature Plt Fraction Sodium Potassium Chloride Carbon Dioxide Anion Gap BUN Creatinine Estim Creat Clear Calc Estimated GFR Glucose POC Capillary Glucose 137 H 191 H 132 H Calcium
[2024-07-31 07:44] VITALS: PULSE 67; RESP 18; O2SAT 96
[2024-07-31 07:44] LABS: Glucose Point of Care 143 mg/dl (65-105)
[2024-07-31] MEDS: FLUTICASONE/SALMETEROL 115-21 MCG INHALER 1 PUFF 2 PUFF INHALATION ×2 (07:44→19:34)
[2024-07-31] MEDS: ATORVASTATIN 10 MG TABLET PO (08:09)
[2024-07-31] MEDS: allopurinoL 100 MG TABLET PO (08:09)
[2024-07-31] MEDS: CALCIUM ACETATE 667 MG TABLET 1334 MG PO ×3 (08:10→16:57)
[2024-07-31] MEDS: CYANOCOBALAMIN 1,000 MCG TABLET 1000 MCG PO (08:10)
[2024-07-31] MEDS: APIXABAN 2.5 MG TABLET PO ×2 (08:10→20:14)
[2024-07-31] MEDS: BUMETANIDE 1 MG TABLET PO ×2 (08:10→16:58)
[2024-07-31] MEDS: FERROUS SULFATE 325 MG TABLET DR 650 MG PO (08:10)
[2024-07-31] MEDS: CHOLECALCIFEROL 1,000 UNITS TABLET 2000 UNITS PO (08:10)
[2024-07-31] MEDS: LACTULOSE 20 GM/30 ML UDC PO ×2 (08:16→12:25)
[2024-07-31 12:36] LABS: Glucose Point of Care 157 mg/dl (65-105)
--- NOTE | 2024-07-31 12:38 | P.PNIM_ITS ---
Progress Note: A&P Assessment and Plan (1) Altered mental status: Qualifiers: Altered mental status type: disorientation Qualified Code(s): R41.0 - Disorientation, unspecified Code(s): R41.82 - Altered mental status, unspecified Status: Acute (2) Increased ammonia level: Code(s): R79.89 - Other specified abnormal findings of blood chemistry Status: Acute (3) Dysphagia: Code(s): R13.10 - Dysphagia, unspecified Status: Acute (4) Acute on chronic diastolic CHF (congestive heart failure): Code(s): I50.33 - Acute on chronic diastolic (congestive) heart failure Status: Acute (5) ESRD (end stage renal disease) on dialysis: Code(s): N18.6 - End stage renal disease; Z99.2 - Dependence on renal dialysis Status: Acute (6) Diabetes: Qualifiers: Diabetes mellitus type: type 2 Diabetes mellitus buttermaker continuous churn insulin use: without buttermaker continuous churn use Diabetes mellitus complication status: with kidney complications Diabetes mellitus complication detail: with chronic kidney disease Chronic kidney disease stage: on chronic dialysis Qualified Code(s): E11.22 - Type 2 diabetes mellitus with diabetic chronic kidney disease; N18.6 - End stage renal disease; Z99.2 - Dependence on renal dialysis Code(s): E11.9 - Type 2 diabetes mellitus without complications Status: Chronic Plan This is 84-year-old male who presents to the ED with altered mental status on 07/21/2024. He did not meet SIRS criteria but lactic acid was elevated to 2.5. CT head showed no significant abnormalities. Could not obtain MRI brain but repeat CT brain showed no acute findings. Chest x-ray showed central congestive changes and pulmonary edema. Viral PCR was negative. Urine culture negative blood culture negative. CT chest abdomen pelvis showing small right pleural effusion, 3 cm indeterminate left renal mass, cholelithiasis, small amount of abdominal pelvic ascites and umbilical hernia which contains a focal small bowel (easily reducible). Ammonia level came back elevated at 122. ABG 7.4 04/03/2069 on room air. TSH folate and B12 was normal. Troponin flat with 0.028-0.031. Suspected altered mental status secondary to ammonia levels. Treated with lactulose with improvement in mental status. Initially had tube put NG tube. NG tube has now been discontinued. Patient has no history of cirrhosis or ethyl alcohol abuse. Total bilirubin was 3.3 on admission with normal LFTs. Total bilirubin trended down. Ultrasound retroperitoneal duplex showed pulsatile antegrade flow in the portal veins secondary to CHF. CT showing small amount of abdominal and pelvic ascites but no abnormality seen of the liver. Echo showed normal LV with hyperdynamic systolic function ejection fraction more than 70%, severely dilated RV with reduced systolic function, RV pressure overload significantly elevated RAP. Biatrial enlargement. There is a small mobile echodensity in the RA possibly an eustachian valve. He underwent PT OT evaluation and required further rehabilitation which was arranged with the help of care coordination. He continued hemodialysis during hospital stay with nephrology consultation.plannedf or right temp dialysis catheter removal. general surgery been consulted. Chronic AFib off Coreg due to bradycardia. On apixaban now. Heart rate stable Chronic back pain status post back stimulator. This probably related to his back pain. Advised to see pain management/spine surgeon for further evaluation as an outpatient basis. Hypertension Thrombocytopenia mild chronic Congestive heart failure chronic diastolic well compensated End-stage renal disease on hemodialysis inpatient hemodialysis per nephrology Chronic anemia with no obvious bleeding. Type 2 diabetes: SSI DVT prophylaxis on apixaban Code status full code Subjective Date/time seen: 07/31/24 12:38 Interval history: no overnight events, patient planned for the dialysis catheter removal. general surgery consulted. discused with nephrolgy. family at bedside and discussed with them Review of Systems Review of Systems: All systems reviewed & are unremarkable except as noted in HPI and below Exam Narrative: Gen - NARD undergoing HD. HEENT -NAD Chest - lungs clear anteriorly. Right upper chest dialysis cath in situ CV - RRR S1/S2 Abd - Soft, obese, NT Ext - no significant pedal edema. LUE fistula accessed Neuro - alert and appropriate Skin - Warm and dry Objective Data Vital Signs Vital Signs: Vital Signs - 24 hr 07/30/24 12:56 07/30/24 14:00 07/30/24 20:00 Temperature 97.7 F 97.5 F L Pulse Rate 66 85 Respiratory Rate 16 18 Blood Pressure 97/45 L 112/50 L Pulse Oximetry 97 99 Oxygen Delivery Room Air Fraction of Inspired Oxygen 07/30/24 20:18 07/30/24 20:23 07/30/24 21:42 Temperature 98.6 F Pulse Rate 66 64 Respiratory Rate 18 20 Blood Pressure 110/64 Pulse Oximetry 98 99 Oxygen Delivery Room Air Fraction of Inspired Oxygen 07/31/24 05:59 07/31/24 07:44 07/31/24 07:44 Temperature 97.8 F Pulse Rate 72 67 Respiratory Rate 18 18 Blood Pressure 107/62 Pulse Oximetry 98 96 Oxygen Delivery Room Air Fraction of Inspired Oxygen 21 Intake/Output Intake/Output: Intake & Output 07/28/24 07/29/24 07/30/24 07/31/24 23:59 23:59 23:59 23:59 Intake Total 1630 1160 1080 120 Output Total 4 5 2324 Balance 1626 1155 -124 120 Meds/Results Medications: Active Medications Generic Name Dose Route Start Last Admin Trade Name Freq PRN Reason Stop Dose Admin Acetaminophen 650 mg 07/21/24 12:38 Acetaminophen 325 Mg Tablet PO Q6H PRN Mild Pain (1-3) Or Fever Albuterol 2 puff 07/21/24 12:38 Albuterol Sulfate (*Sp) Aerosol 1 Puff INHALATION Q6HRT PRN sob/wheezing Allopurinol 100 mg 07/21/24 12:50 07/31/24 08:09 Allopurinol 100 Mg Tablet PO 100 mg DAILY CESAR Administration Apixaban 2.5 mg 07/21/24 12:50 07/31/24 08:10 Apixaban 2.5 Mg Tablet PO 2.5 mg Q12HR CESAR Administration Atorvastatin Calcium 10 mg 07/21/24 12:50 07/31/24 08:09 Atorvastatin 10 Mg Tablet PO 10 mg DAILY CESAR Administration Benzonatate 0 mg 07/21/24 12:40 07/30/24 08:01 Benzonatate 100 Mg Capsule PO 200 mg TID PRN Administration Cough Bumetanide 1 mg 07/21/24 17:00 07/31/24 08:10 Bumetanide 1 Mg Tablet PO 1 mg BID CESAR Administration Calcitriol 0.25 mcg 07/21/24 13:00 07/30/24 08:01 Calcitriol 0.25 Mcg Capsule PO 0.25 mcg [id number] CESAR Administration Calcium Acetate 1,334 mg 07/21/24 12:00 07/31/24 12:25 Calcium Acetate 667 Mg Tablet PO 1,334 mg TIDWM CESAR Administration Cyanocobalamin 1,000 mcg 07/21/24 12:50 07/31/24 08:10 Cyanocobalamin 1,000 Mcg Tablet PO 1,000 mcg DAILY CESAR Administration Dextrose 12.5 gm 07/21/24 08:12 Dextrose 50% 25 Gm/50 Ml Syringe IV PUSH PRN PRN Hypoglycemia Protocol Dextrose 12.5 gm 07/21/24 12:35 Dextrose 50% 25 Gm/50 Ml Syringe IV PUSH PRN PRN Hypoglycemia Protocol Ferrous Sulfate 650 mg 07/21/24 13:00 07/31/24 08:10 Ferrous Sulfate [address] PO 650 mg Q48HR CESAR Administration Glucagon 1 mg 07/21/24 12:35 Glucagon For Inj 1 Mg Vial IM PRN PRN Hypoglycemia Protocol Glucose 15 gm 07/21/24 12:35 Glucose Oral Gel 15 Gm Of Glucse In 37.5 Gm Tube PO PRN PRN Hypoglycemia Protocol Albumin Human 50 mls @ 999 mls/hr 07/21/24 08:43 Albutein IVPB 08/20/24 08:42 Q10M PRN HYPOTENSION Dextrose 1,000 mls @ 100 mls/hr 07/21/24 12:35 Dextrose 5% 1,000 Ml IVPB PRN PRN Hypoglycemia Protocol Insulin Aspart 4 - 8 units 07/28/24 08:00 07/31/24 12:19 Insulin Aspart (*Bkc) 100 Units/Ml SUB-Q Not Given ACINSULIN [facility] Protocol Lactulose 20 gm 07/21/24 18:00 07/31/24 12:25 Lactulose 20 Gm/30 Ml Udc PO 20 gm TID CESAR Administration Midodrine 10 mg 07/21/24 12:43 07/30/24 07:55 Midodrine Hcl 10 Mg Tablet PO 10 mg DAILY PRN Administration Hypotension with dialysis Miscellaneous Information 0 each 07/21/24 00:01 07/28/24 08:48 Liraglutide [Victoza 2-Vidal] 0.6 Mg/0.1 Ml = Non Formulary XX 08/20/24 00:00 Not Given CLARIFY CESAR Non-Formulary Medication 1.2 mg 07/22/24 09:00 Liraglutide [Victoza 2-Vidal] SUB-Q 08/21/24 08:59 DAILY CESAR Ondansetron HCl 4 mg 07/21/24 08:12 Ondansetron Inj 4 Mg/2 Ml Vial IV PUSH Q4H PRN Nausea Fluticasone/Salmeterol 2 puff 07/21/24 20:00 07/31/24 07:44 Fluticasone/Salmeterol 115-21 Mcg Inhaler 1 Puff INHALATION 2 puff Q12HRT CESAR Administration Vitamin D 2,000 units 07/21/24 12:50 07/31/24 08:10 Cholecalciferol 1,000 Units Tablet PO 2,000 units DAILY CESAR Administration Radiology Results: ITS Impressions Chest/Abdomen/Pelvis CT 07/21/24 07:04 Impression: Small right pleural effusion. 3 cm indeterminate left renal mass. Further evaluation with ultrasound or pre and postcontrast CT/MR advised. Cholelithiasis. Small amount of abdominopelvic ascites. Umbilical hernia which contains a focal small bowel. Head CT 07/21/24 17:53 IMPRESSION: 1. 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 Arterial/Peripheral Duplex 07/21/24 19:22 IMPRESSION: 1. Pulsatile antegrade flow in the portal veins, likely secondary to congestive heart failure. Chest X-Ray 07/25/24 06:10 IMPRESSION: 1. Mild atelectasis in the lower lung zones. 2. Cardiomegaly. Abdomen X-Ray 07/26/24 17:36 IMPRESSION: NG tube, in good position. Modified Barium Swallow 07/27/24 08:21 IMPRESSION: 1. No laryngeal penetration or aspiration. 2. Please refer to the speech therapy report for recommendations. Labs Labs: Laboratory Results - last 24 hr 07/30/24 07/30/24 07/30/24 11:30 13:14 16:23 Sodium 135 L Potassium 3.4 Chloride 97 L Carbon Dioxide 37 H Anion Gap 1 L BUN 15 D Creatinine 2.10 H Estim Creat Clear Calc 28 Estimated GFR 37 L Glucose 114 H POC Capillary Glucose 137 H 191 H Calcium 8.3 L 07/30/24 07/31/24 07/31/24 19:48 07:35 12:22 Sodium Potassium Chloride Carbon Dioxide Anion Gap BUN Creatinine Estim Creat Clear Calc Estimated GFR Glucose POC Capillary Glucose 132 H 143 H 157 H Calcium
[2024-07-31 14:00] VITALS: BP 155/72; PULSE 68; RESP 18; TEMP 36.7; O2SAT 100
[2024-07-31 16:45] LABS: Glucose Point of Care 173 mg/dl (65-105)
[2024-07-31 19:38] VITALS: PULSE 85; RESP 18; O2SAT 95
[2024-07-31 22:00] VITALS: BP 111/62; PULSE 71; RESP 18; TEMP 36.3; O2SAT 100
[2024-07-31 22:03] LABS: Glucose Point of Care 181 mg/dl (65-105)
[2024-08-01] VITALS (7 sets, daily range): BP systolic 102–110; BP diastolic 60–72; PULSE 68–80; RESP 14–20; TEMP 36.1–36.6; O2SAT 97–100
[2024-08-01 08:09] LABS: Glucose Point of Care 160 mg/dl (65-105)
[2024-08-01] MEDS: LACTULOSE 20 GM/30 ML UDC PO ×2 (08:26→12:32)
[2024-08-01] MEDS: ATORVASTATIN 10 MG TABLET PO (08:27)
[2024-08-01] MEDS: CYANOCOBALAMIN 1,000 MCG TABLET 1000 MCG PO (08:27)
[2024-08-01] MEDS: CALCIUM ACETATE 667 MG TABLET 1334 MG PO ×3 (08:27→16:48)
[2024-08-01] MEDS: APIXABAN 2.5 MG TABLET PO ×2 (08:27→20:09)
[2024-08-01] MEDS: BUMETANIDE 1 MG TABLET PO ×2 (08:27→16:48)
[2024-08-01] MEDS: CHOLECALCIFEROL 1,000 UNITS TABLET 2000 UNITS PO (08:28)
[2024-08-01] MEDS: allopurinoL 100 MG TABLET PO (08:28)
[2024-08-01] MEDS: calcitrioL 0.25 MCG CAPSULE PO (08:33)
[2024-08-01] MEDS: FLUTICASONE/SALMETEROL 115-21 MCG INHALER 1 PUFF 2 PUFF INHALATION ×2 (08:59→20:11)
--- NOTE | 2024-08-01 11:37 | PM.IMPN ---
Progress Note: A&P Assessment and Plan (1) Altered mental status: Qualifiers: Altered mental status type: disorientation Qualified Code(s): R41.0 - Disorientation, unspecified Code(s): R41.82 - Altered mental status, unspecified Status: Acute (2) Increased ammonia level: Code(s): R79.89 - Other specified abnormal findings of blood chemistry Status: Acute (3) Dysphagia: Code(s): R13.10 - Dysphagia, unspecified Status: Acute (4) Acute on chronic diastolic CHF (congestive heart failure): Code(s): I50.33 - Acute on chronic diastolic (congestive) heart failure Status: Acute (5) ESRD (end stage renal disease) on dialysis: Code(s): N18.6 - End stage renal disease; Z99.2 - Dependence on renal dialysis Status: Acute (6) Diabetes: Qualifiers: Diabetes mellitus type: type 2 Diabetes mellitus termite treater helper insulin use: without termite treater helper use Diabetes mellitus complication status: with kidney complications Diabetes mellitus complication detail: with chronic kidney disease Chronic kidney disease stage: on chronic dialysis Qualified Code(s): E11.22 - Type 2 diabetes mellitus with diabetic chronic kidney disease; N18.6 - End stage renal disease; Z99.2 - Dependence on renal dialysis Code(s): E11.9 - Type 2 diabetes mellitus without complications Status: Chronic Plan This is 84-year-old male who presents to the ED with altered mental status on 07/21/2024. He did not meet SIRS criteria but lactic acid was elevated to 2.5. CT head showed no significant abnormalities. Could not obtain MRI brain but repeat CT brain showed no acute findings. Chest x-ray showed central congestive changes and pulmonary edema. Viral PCR was negative. Urine culture negative blood culture negative. CT chest abdomen pelvis showing small right pleural effusion, 3 cm indeterminate left renal mass, cholelithiasis, small amount of abdominal pelvic ascites and umbilical hernia which contains a focal small bowel (easily reducible). Ammonia level came back elevated at 122. ABG 7.4 04/03/2069 on room air. TSH folate and B12 was normal. Troponin flat with 0.028-0.031. Suspected altered mental status secondary to ammonia levels. Treated with lactulose with improvement in mental status. Initially had tube put NG tube. NG tube has now been discontinued. Patient has no history of cirrhosis or ethyl alcohol abuse. Total bilirubin was 3.3 on admission with normal LFTs. Total bilirubin trended down. Ultrasound retroperitoneal duplex showed pulsatile antegrade flow in the portal veins secondary to CHF. CT showing small amount of abdominal and pelvic ascites but no abnormality seen of the liver. Echo showed normal LV with hyperdynamic systolic function ejection fraction more than 70%, severely dilated RV with reduced systolic function, RV pressure overload significantly elevated RAP. Biatrial enlargement. There is a small mobile echodensity in the RA possibly an eustachian valve. He underwent PT OT evaluation and required further rehabilitation which was arranged with the help of care coordination. He continued hemodialysis during hospital stay with nephrology consultation.plannedf or right temp dialysis catheter removal. general surgery been consulted. Chronic AFib off Coreg due to bradycardia. On apixaban now. Heart rate stable Chronic back pain status post back stimulator. This probably related to his back pain. Advised to see pain management/spine surgeon for further evaluation as an outpatient basis. Hypertension Thrombocytopenia mild chronic Congestive heart failure chronic diastolic well compensated End-stage renal disease on hemodialysis inpatient hemodialysis per nephrology Chronic anemia with no obvious bleeding. Type 2 diabetes: SSI DVT prophylaxis on apixaban Code status full code Subjective Date/time seen: 08/01/24 11:37 Interval history: no overnight events. No new complaint. Awaiting PermCath removal. Yet to find out about the schedule Review of Systems Review of Systems: All systems reviewed & are unremarkable except as noted in HPI and below Exam Narrative: Gen - NARD undergoing HD. HEENT -NAD Chest - lungs clear anteriorly. Right upper chest dialysis cath in situ CV - RRR S1/S2 Abd - Soft, obese, NT Ext - no significant pedal edema. LUE fistula accessed Neuro - alert and appropriate Skin - Warm and dry Objective Data Vital Signs Vital Signs: Vital Signs - 24 hr 07/31/24 14:00 07/31/24 19:38 07/31/24 19:38 Temperature 98.1 F Pulse Rate 68 85 Respiratory Rate 18 18 Blood Pressure 155/72 H Pulse Oximetry 100 95 Oxygen Delivery Room Air 07/31/24 20:00 07/31/24 22:00 08/01/24 06:00 Temperature 97.3 F L 97.3 F L Pulse Rate 71 75 Respiratory Rate 18 14 Blood Pressure 111/62 107/70 Pulse Oximetry 100 98 Oxygen Delivery Room Air 08/01/24 08:00 08/01/24 08:59 08/01/24 08:59 Temperature Pulse Rate 72 72 Respiratory Rate 20 20 Blood Pressure Pulse Oximetry 97 Oxygen Delivery Room Air Room Air Intake/Output Intake/Output: Intake & Output 07/29/24 07/30/24 07/31/24 08/01/24 23:59 23:59 23:59 23:59 Intake Total 1160 1080 1460 240 Output Total 5 0814 Balance 1155 -1244 1460 240 Meds/Results Medications: Active Medications Generic Name Dose Route Start Last Admin Trade Name Freq PRN Reason Stop Dose Admin Acetaminophen 650 mg 07/21/24 12:38 Acetaminophen 325 Mg Tablet PO Q6H PRN Mild Pain (1-3) Or Fever Albuterol 2 puff 07/21/24 12:38 Albuterol Sulfate (*Sp) Aerosol 1 Puff INHALATION Q6HRT PRN sob/wheezing Allopurinol 100 mg 07/21/24 12:50 08/01/24 08:28 Allopurinol 100 Mg Tablet PO 100 mg DAILY CESAR Administration Apixaban 2.5 mg 07/21/24 12:50 08/01/24 08:27 Apixaban 2.5 Mg Tablet PO 2.5 mg Q12HR CESAR Administration Atorvastatin Calcium 10 mg 07/21/24 12:50 08/01/24 08:27 Atorvastatin 10 Mg Tablet PO 10 mg DAILY CESAR Administration Benzonatate 0 mg 07/21/24 12:40 07/30/24 08:01 Benzonatate 100 Mg Capsule PO 200 mg TID PRN Administration Cough Bumetanide 1 mg 07/21/24 17:00 08/01/24 08:27 Bumetanide 1 Mg Tablet PO 1 mg BID CESAR Administration Calcitriol 0.25 mcg 07/21/24 13:00 08/01/24 08:33 Calcitriol 0.25 Mcg Capsule PO 0.25 mcg [id number] CESAR Administration Calcium Acetate 1,334 mg 07/21/24 12:00 08/01/24 08:27 Calcium Acetate 667 Mg Tablet PO 1,334 mg TIDWM CESAR Administration Cyanocobalamin 1,000 mcg 07/21/24 12:50 08/01/24 08:27 Cyanocobalamin 1,000 Mcg Tablet PO 1,000 mcg DAILY CESAR Administration Dextrose 12.5 gm 07/21/24 08:12 Dextrose 50% 25 Gm/50 Ml Syringe IV PUSH PRN PRN Hypoglycemia Protocol Dextrose 12.5 gm 07/21/24 12:35 Dextrose 50% 25 Gm/50 Ml Syringe IV PUSH PRN PRN Hypoglycemia Protocol Ferrous Sulfate 650 mg 07/21/24 13:00 07/31/24 08:10 Ferrous Sulfate [address] PO 650 mg Q48HR CESAR Administration Glucagon 1 mg 07/21/24 12:35 Glucagon For Inj 1 Mg Vial IM PRN PRN Hypoglycemia Protocol Glucose 15 gm 07/21/24 12:35 Glucose Oral Gel 15 Gm Of Glucse In 37.5 Gm Tube PO PRN PRN Hypoglycemia Protocol Albumin Human 50 mls @ 999 mls/hr 07/21/24 08:43 Albutein IVPB 08/20/24 08:42 Q10M PRN HYPOTENSION Dextrose 1,000 mls @ 100 mls/hr 07/21/24 12:35 Dextrose 5% 1,000 Ml IVPB PRN PRN Hypoglycemia Protocol Insulin Aspart 4 - 8 units 07/28/24 08:00 08/01/24 08:36 Insulin Aspart (*Bkc) 100 Units/Ml SUB-Q Not Given ACINSULIN CESAR Protocol Lactulose 20 gm 07/21/24 18:00 08/01/24 08:26 Lactulose 20 Gm/30 Ml Udc PO 20 gm TID CESAR Administration Midodrine 10 mg 07/21/24 12:43 07/30/24 07:55 Midodrine Hcl 10 Mg Tablet PO 10 mg DAILY PRN Administration Hypotension with dialysis Ondansetron HCl 4 mg 07/21/24 08:12 Ondansetron Inj 4 Mg/2 Ml Vial IV PUSH Q4H PRN Nausea Fluticasone/Salmeterol 2 puff 07/21/24 20:00 08/01/24 08:59 Fluticasone/Salmeterol 115-21 Mcg Inhaler 1 Puff INHALATION 2 puff Q12HRT CESAR Administration Vitamin D 2,000 units 07/21/24 12:50 08/01/24 08:28 Cholecalciferol 1,000 Units Tablet PO 2,000 units DAILY CESAR Administration Radiology Results: ITS Impressions Chest/Abdomen/Pelvis CT 07/21/24 07:04 Impression: Small right pleural effusion. 3 cm indeterminate left renal mass. Further evaluation with ultrasound or pre and postcontrast CT/MR advised. Cholelithiasis. Small amount of abdominopelvic ascites. Umbilical hernia which contains a focal small bowel. Head CT 07/21/24 17:53 IMPRESSION: 1. 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 Arterial/Peripheral Duplex 07/21/24 19:22 IMPRESSION: 1. Pulsatile antegrade flow in the portal veins, likely secondary to congestive heart failure. Chest X-Ray 07/25/24 06:10 IMPRESSION: 1. Mild atelectasis in the lower lung zones. 2. Cardiomegaly. Abdomen X-Ray 07/26/24 17:36 IMPRESSION: NG tube, in good position. Modified Barium Swallow 07/27/24 08:21 IMPRESSION: 1. No laryngeal penetration or aspiration. 2. Please refer to the speech therapy report for recommendations. Labs Labs: Laboratory Results - last 24 hr 07/31/24 07/31/24 07/31/24 12:22 16:36 20:39 POC Capillary Glucose 157 H 173 H 181 H 08/01/24 08:04 POC Capillary Glucose 160 H
[2024-08-01 11:59] LABS: Glucose Point of Care 178 mg/dl (65-105)
--- NOTE | 2024-08-01 14:28 | P.PNNP_ITS ---
Progress Note: A&P Assessment and Plan (1) End-stage renal disease (ESRD): Code(s): N18.6 - End stage renal disease Status: Chronic Assessment and Plan: * HD was done Friday. * Will do a treatment tomorrow. * It turns out insurance authorization for outpatient rehab expect so he will be staying in the hospital until this can be worked out. * Patient has a PermCath. He has an arm access which is working. The PermCath could come out. I consulted surgery but they hesitate because he has had so many in the last year. I do not know the details of the access history and Dr. Johnson will be back tomorrow so he will talk with Dr. Green. 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 * Iron levels being followed by dialysis unit (6) Diabetes: Qualifiers: Diabetes mellitus type: type 2 Diabetes mellitus [facility] insulin use: without [facility] use Diabetes mellitus complication status: with kidney complications Diabetes mellitus complication detail: with chronic kidney disease Chronic kidney disease stage: on chronic dialysis Qualified Code(s): E11.22 - Type 2 diabetes mellitus with diabetic chronic kidney disease; N18.6 - End stage renal disease; Z99.2 - Dependence on renal dialysis Code(s): E11.9 - Type 2 diabetes mellitus without complications Status: Chronic Assessment and Plan: * follow accu-cheks * glycemic control per hospitalists Subjective Date/time seen: 08/01/24 14:28 Interval history: patient is sitting up in chair. He feels okay. Exam Narrative: WDWN in NAD skin no rash head ncat lungs clear bilaterally cor reg no rub or gallop abd BS+ without tenderness or HSM ext no edema Objective Data Vital Signs Vital Signs: Vital Signs - 24 hr 07/31/24 19:38 07/31/24 19:38 07/31/24 20:00 Temperature Pulse Rate 85 Respiratory Rate 18 Blood Pressure Pulse Oximetry 95 Oxygen Delivery Room Air Room Air 07/31/24 22:00 08/01/24 06:00 08/01/24 08:00 Temperature 97.3 F L 97.3 F L Pulse Rate 71 75 Respiratory Rate 18 14 Blood Pressure 111/62 107/70 Pulse Oximetry 100 98 Oxygen Delivery Room Air 08/01/24 08:59 08/01/24 08:59 Temperature Pulse Rate 72 72 Respiratory Rate 20 20 Blood Pressure Pulse Oximetry 97 Oxygen Delivery Room Air Intake/Output Intake/Output: Intake & Output 07/29/24 07/30/24 07/31/24 08/01/24 23:59 23:59 23:59 23:59 Intake Total 1160 1080 1460 600 Output Total 5 2324 Balance 1155 -1244 1460 600 Meds/Results Medications: Active Medications Generic Name Dose Route Start Last Admin Trade Name Freq PRN Reason Stop Dose Admin Acetaminophen 650 mg 07/21/24 12:38 Acetaminophen 325 Mg Tablet PO Q6H PRN Mild Pain (1-3) Or Fever Albuterol 2 puff 07/21/24 12:38 Albuterol Sulfate (*Sp) Aerosol 1 Puff INHALATION Q6HRT PRN sob/wheezing Allopurinol 100 mg 07/21/24 12:50 08/01/24 08:28 Allopurinol 100 Mg Tablet PO 100 mg DAILY CESAR Administration Apixaban 2.5 mg 07/21/24 12:50 08/01/24 08:27 Apixaban 2.5 Mg Tablet PO 2.5 mg Q12HR CESAR Administration Atorvastatin Calcium 10 mg 07/21/24 12:50 08/01/24 08:27 Atorvastatin 10 Mg Tablet PO 10 mg DAILY CESAR Administration Benzonatate 0 mg 07/21/24 12:40 07/30/24 08:01 Benzonatate 100 Mg Capsule PO 200 mg TID PRN Administration Cough Bumetanide 1 mg 07/21/24 17:00 08/01/24 08:27 Bumetanide 1 Mg Tablet PO 1 mg BID CESAR Administration Calcitriol 0.25 mcg 07/21/24 13:00 08/01/24 08:33 Calcitriol 0.25 Mcg Capsule PO 0.25 mcg [id number] CESAR Administration Calcium Acetate 1,334 mg 07/21/24 12:00 08/01/24 12:32 Calcium Acetate 667 Mg Tablet PO 1,334 mg TIDWM CESAR Administration Cyanocobalamin 1,000 mcg 07/21/24 12:50 08/01/24 08:27 Cyanocobalamin 1,000 Mcg Tablet PO 1,000 mcg DAILY CESAR Administration Dextrose 12.5 gm 07/21/24 08:12 Dextrose 50% 25 Gm/50 Ml Syringe IV PUSH PRN PRN Hypoglycemia Protocol Dextrose 12.5 gm 07/21/24 12:35 Dextrose 50% 25 Gm/50 Ml Syringe IV PUSH PRN PRN Hypoglycemia Protocol Ferrous Sulfate 650 mg 07/21/24 13:00 07/31/24 08:10 Ferrous Sulfate [address] PO 650 mg Q48HR CESAR Administration Glucagon 1 mg 07/21/24 12:35 Glucagon For Inj 1 Mg Vial IM PRN PRN Hypoglycemia Protocol Glucose 15 gm 07/21/24 12:35 Glucose Oral Gel 15 Gm Of Glucse In 37.5 Gm Tube PO PRN PRN Hypoglycemia Protocol Albumin Human 50 mls @ 999 mls/hr 07/21/24 08:43 Albutein IVPB 08/20/24 08:42 Q10M PRN HYPOTENSION Dextrose 1,000 mls @ 100 mls/hr 07/21/24 12:35 Dextrose 5% 1,000 Ml IVPB PRN PRN Hypoglycemia Protocol Insulin Aspart 4 - 8 units 07/28/24 08:00 08/01/24 12:32 Insulin Aspart (*Bkc) 100 Units/Ml SUB-Q Not Given ACINSULIN [facility] Protocol Lactulose 20 gm 07/21/24 18:00 08/01/24 12:32 Lactulose 20 Gm/30 Ml Udc PO 20 gm TID CESAR Administration Midodrine 10 mg 07/21/24 12:43 07/30/24 07:55 Midodrine Hcl 10 Mg Tablet PO 10 mg DAILY PRN Administration Hypotension with dialysis Ondansetron HCl 4 mg 07/21/24 08:12 Ondansetron Inj 4 Mg/2 Ml Vial IV PUSH Q4H PRN Nausea Fluticasone/Salmeterol 2 puff 07/21/24 20:00 08/01/24 08:59 Fluticasone/Salmeterol 115-21 Mcg Inhaler 1 Puff INHALATION 2 puff Q12HRT CESAR Administration Vitamin D 2,000 units 07/21/24 12:50 08/01/24 08:28 Cholecalciferol 1,000 Units Tablet PO 2,000 units DAILY CESAR Administration Radiology Results: ITS Impressions Chest/Abdomen/Pelvis CT 07/21/24 07:04 Impression: Small right pleural effusion. 3 cm indeterminate left renal mass. Further evaluation with ultrasound or pre and postcontrast CT/MR advised. Cholelithiasis. Small amount of abdominopelvic ascites. Umbilical hernia which contains a focal small bowel. Head CT 07/21/24 17:53 IMPRESSION: 1. 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 Arterial/Peripheral Duplex 07/21/24 19:22 IMPRESSION: 1. Pulsatile antegrade flow in the portal veins, likely secondary to congestive heart failure. Chest X-Ray 07/25/24 06:10 IMPRESSION: 1. Mild atelectasis in the lower lung zones. 2. Cardiomegaly. Abdomen X-Ray 07/26/24 17:36 IMPRESSION: NG tube, in good position. Modified Barium Swallow 07/27/24 08:21 IMPRESSION: 1. No laryngeal penetration or aspiration. 2. Please refer to the speech therapy report for recommendations. Labs Labs: Laboratory Results - last 24 hr 07/31/24 07/31/24 08/01/24 16:36 20:39 08:04 POC Capillary Glucose 173 H 181 H 160 H 08/01/24 11:45 POC Capillary Glucose 178 H
[2024-08-01 16:53] LABS: Glucose Point of Care 163 mg/dl (65-105)
[2024-08-01 20:40] LABS: Glucose Point of Care 154 mg/dl (65-105)
[2024-08-01] MEDS: ACETAMINOPHEN 325 MG TABLET 650 MG PO (22:37)
[2024-08-02] VITALS (25 sets, daily range): BP systolic 77–118; BP diastolic 31–69; PULSE 65–86; RESP 18–20; TEMP 36.2–37; O2SAT 97–100
[2024-08-02 07:05] LABS: Hematocrit 36.9 % (42.0-52.0); Hemoglobin 11.8 g/dL (14.0-18.0); Immature Platelet Fraction Pct 6.3 % (0.9-11.2); Mean Corpuscular Hemoglobin 32.6 pg (26-34); Mean Corpuscular Volume 101.9 fl (80-100); Mean Platelet Volume 11.8 fl (7.4-10.4); Platelet Count Result 84 k/mm3 (150-375); Red Blood Count 3.62 M/mm3 (4.6-6.20); Red Cell Distribution Width 16.4 % (11.5-14.5); White Blood Count 4.9 K/mm3 (4.5-10.0)
[2024-08-02 07:25] LABS: Albumin Level 3.4 g/dL (3.5-5.1); Anion Gap 8 mmol/L (4-12); Blood Urea Nitrogen 64 mg/dL (9-20); Carbon Dioxide 29 mmol/L (22-30); Chloride 97 mmol/L (98-107); Estimated CRCL calculation 8 ml/min; Estimated Glomerular Filt Rate 8; Glucose 148 mg/dL (65-110); Phosphorus 4.1 mg/dL (2.5-4.5); Potassium 4.7 mmol/L (3.4-5.0); Sodium 134 mmol/L (137-145)
[2024-08-02] MEDS: FLUTICASONE/SALMETEROL 115-21 MCG INHALER 1 PUFF 2 PUFF INHALATION ×2 (08:07→20:54)
[2024-08-02 08:20] LABS: Glucose Point of Care 138 mg/dl (65-105)
[2024-08-02] MEDS: CALCIUM ACETATE 667 MG TABLET 1334 MG PO ×2 (08:33→14:29)
[2024-08-02] MEDS: APIXABAN 2.5 MG TABLET PO (08:34)
[2024-08-02] MEDS: MIDODRINE HCL 10 MG TABLET PO (09:24)
--- NOTE | 2024-08-02 10:35 | P.PNNP_ITS ---
Progress Note: A&P Assessment and Plan (1) End-stage renal disease (ESRD): Code(s): N18.6 - End stage renal disease Status: Chronic Assessment and Plan: * HD today * plan HD today and tomorrow and then Friday (due to holiday schedule) * follow electrolytes, volume status, and clearance (2) Altered mental status: Qualifiers: Altered mental status type: disorientation Qualified Code(s): R41.0 - Disorientation, unspecified Code(s): R41.82 - Altered mental status, unspecified Status: Resolved Assessment and Plan: * resolved * as noted on presentation * no evidence of infection/sepsis... * however, mild lactic acidosis noted * imaging reviewed: * CT head: No significant abnormality seen. * CXR negative for PNA. viral PCR negative. * CT chest/abd/pelvis: small right pleural effusion, 3 cm indeterminate left renal mass, cholelithiasis, small amount of abdominopelvic ascites, umbilical hernia which contains a focal small bowel * questionable UTI by UA * elevated ammonia level noted * initiated on lactulose on admission * holding potential sedative medications (gabapentin and norco) * follow trend of mental status (3) Hypotension: Code(s): I95.9 - Hypotension, unspecified Status: Chronic Assessment and Plan: * chronic issue at baseline * on midodrine therapy * follow trend of hemodynamics (4) Anemia: Qualifiers: Anemia type: unspecified type Qualified Code(s): D64.9 - Anemia, unspecified Code(s): D64.9 - Anemia, unspecified Status: Chronic Assessment and Plan: * due to ESRD * hold Retacrit since Hgb > 10 * follow trend of H/H (5) Diabetes: Qualifiers: Chronic kidney disease stage: on chronic dialysis Diabetes mellitus complication detail: with chronic kidney disease Diabetes mellitus complication status: with kidney complications Diabetes mellitus intermediate insulin use: w [facility] intermediate use Diabetes mellitus type: type 2 Qualified Code(s): E11.22 - Type 2 diabetes mellitus with diabetic chronic kidney disease; N18.6 - End stage renal disease; Z99.2 - Dependence on renal dialysis Code(s): E11.9 - Type 2 diabetes mellitus without complications Status: Chronic Assessment and Plan: * follow accu-cheks * glycemic control per hospitalists Will continue to follow. Subjective Date/time seen: 08/02/24 10:35 Interval history: Follow-up for end stage renal disease on hemodialysis. Chart reviewed since last seen -- tolerating dialysis treatment at the time of my visit (seen on HD at 10:25AM); mental status is back to baseline; no apparent distress noted; no events overnight or earlier this morning. Exam 2 Narrative: General: elderly male in NAD Heart: IRRR, normal S1 and S2; no rub Lungs: clear anteriorly; decreased at bases Abdomen: soft, nontender, nondistended, positive bowel sounds Extremities: no cyanosis or clubbing; 1+ edema (chronic) Skin: warm and dry Objective Data Vital Signs Vital Signs: Vital Signs Temp Pulse Resp BP Pulse Ox O2 Del Method FiO2 08/02/24 08:07 78 20 08/02/24 08:07 97 Room Air 21 08/02/24 08:00 100 Room Air 08/02/24 06:00 97.1 F L 71 18 88/48 L 100 08/01/24 21:18 97.8 F 68 18 102/60 99 08/01/24 20:14 97 Room Air 08/01/24 20:11 77 20 08/01/24 20:00 68 18 99 Room Air 08/01/24 14:00 97.0 F L 80 18 110/72 100 Intake/Output Intake/Output: Intake & Output 07/30/24 07/31/24 08/01/24 08/02/24 23:59 23:59 23:59 23:59 Intake Total 1080 1460 1700 340 Output Total 2324 5 Balance -1244 1460 1695 340 Meds/Results Medications: Active Medications Generic Name Dose Route Start Last Admin Trade Name Freq PRN Reason Stop Dose Admin Acetaminophen 650 mg 07/21/24 12:38 08/01/24 22:37 Acetaminophen 325 Mg Tablet PO 650 mg Q6H PRN Administration Mild Pain (1-3) Or Fever Albuterol 2 puff 07/21/24 12:38 Albuterol Sulfate (*Sp) Aerosol 1 Puff INHALATION Q6HRT PRN sob/wheezing Allopurinol 100 mg 07/21/24 12:50 08/01/24 08:28 Allopurinol 100 Mg Tablet PO 100 mg DAILY CESAR Administration Apixaban 2.5 mg 07/21/24 12:50 08/02/24 08:34 Apixaban 2.5 Mg Tablet PO 2.5 mg Q12HR CESAR Administration Atorvastatin Calcium 10 mg 07/21/24 12:50 08/01/24 08:27 Atorvastatin 10 Mg Tablet PO 10 mg DAILY CESAR Administration Benzonatate 0 mg 07/21/24 12:40 07/30/24 08:01 Benzonatate 100 Mg Capsule PO 200 mg TID PRN Administration Cough Bumetanide 1 mg 07/21/24 17:00 08/01/24 16:48 Bumetanide 1 Mg Tablet PO 1 mg BID CESAR Administration Calcitriol 0.25 mcg 07/21/24 13:00 08/01/24 08:33 Calcitriol 0.25 Mcg Capsule PO 0.25 mcg [id number] CESAR Administration Calcium Acetate 1,334 mg 07/21/24 12:00 08/02/24 08:33 Calcium Acetate 667 Mg Tablet PO 1,334 mg TIDWM CESAR Administration Cyanocobalamin 1,000 mcg 07/21/24 12:50 08/01/24 08:27 Cyanocobalamin 1,000 Mcg Tablet PO 1,000 mcg DAILY CESAR Administration Dextrose 12.5 gm 07/21/24 08:12 Dextrose 50% 25 Gm/50 Ml Syringe IV PUSH PRN PRN Hypoglycemia Protocol Dextrose 12.5 gm 07/21/24 12:35 Dextrose 50% 25 Gm/50 Ml Syringe IV PUSH PRN PRN Hypoglycemia Protocol Ferrous Sulfate 650 mg 07/21/24 13:00 07/31/24 08:10 Ferrous Sulfate [address] PO 650 mg Q48HR CESAR Administration Glucagon 1 mg 07/21/24 12:35 Glucagon For Inj 1 Mg Vial IM PRN PRN Hypoglycemia Protocol Glucose 15 gm 07/21/24 12:35 Glucose Oral Gel 15 Gm Of Glucse In 37.5 Gm Tube PO PRN PRN Hypoglycemia Protocol Albumin Human 50 mls @ 999 mls/hr 07/21/24 08:43 Albutein IVPB 08/20/24 08:42 Q10M PRN HYPOTENSION Dextrose 1,000 mls @ 100 mls/hr 07/21/24 12:35 Dextrose 5% 1,000 Ml IVPB PRN PRN Hypoglycemia Protocol Insulin Aspart 4 - 8 units 07/28/24 08:00 08/02/24 08:32 Insulin Aspart (*Bkc) 100 Units/Ml SUB-Q Not Given ACINSULIN [facility] Protocol Lactulose 20 gm 07/21/24 18:00 08/01/24 19:47 Lactulose 20 Gm/30 Ml Udc PO Not Given TID [facility] Midodrine 10 mg 07/21/24 12:43 08/02/24 09:24 Midodrine Hcl 10 Mg Tablet PO 10 mg DAILY PRN Administration Hypotension with dialysis Ondansetron HCl 4 mg 07/21/24 08:12 Ondansetron Inj 4 Mg/2 Ml Vial IV PUSH Q4H PRN Nausea Fluticasone/Salmeterol 2 puff 07/21/24 20:00 08/02/24 08:07 Fluticasone/Salmeterol 115-21 Mcg Inhaler 1 Puff INHALATION 2 puff Q12HRT CESAR Administration Vitamin D 2,000 units 07/21/24 12:50 08/01/24 08:28 Cholecalciferol 1,000 Units Tablet PO 2,000 units DAILY CESAR Administration Radiology Results: ITS Impressions Chest/Abdomen/Pelvis CT 07/21/24 07:04 Impression: Small right pleural effusion. 3 cm indeterminate left renal mass. Further evaluation with ultrasound or pre and postcontrast CT/MR advised. Cholelithiasis. Small amount of abdominopelvic ascites. Umbilical hernia which contains a focal small bowel. Head CT 07/21/24 17:53 IMPRESSION: 1. 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 Arterial/Peripheral Duplex 07/21/24 19:22 IMPRESSION: 1. Pulsatile antegrade flow in the portal veins, likely secondary to congestive heart failure. Chest X-Ray 07/25/24 06:10 IMPRESSION: 1. Mild atelectasis in the lower lung zones. 2. Cardiomegaly. Abdomen X-Ray 07/26/24 17:36 IMPRESSION: NG tube, in good position. Modified Barium Swallow 07/27/24 08:21 IMPRESSION: 1. No laryngeal penetration or aspiration. 2. Please refer to the speech therapy report for recommendations. Labs Labs: Laboratory Tests 08/02/24 06:36 08/02/24 06:36 Calcium 9.0 Phosphorus 4.1 Albumin 3.4 L
--- NOTE | 2024-08-02 12:52 | PM.IMPN ---
Progress Note: A&P Assessment and Plan (1) Altered mental status: Qualifiers: Altered mental status type: disorientation Qualified Code(s): R41.0 - Disorientation, unspecified Code(s): R41.82 - Altered mental status, unspecified Status: Acute (2) Increased ammonia level: Code(s): R79.89 - Other specified abnormal findings of blood chemistry Status: Acute (3) Dysphagia: Code(s): R13.10 - Dysphagia, unspecified Status: Acute (4) Acute on chronic diastolic CHF (congestive heart failure): Code(s): I50.33 - Acute on chronic diastolic (congestive) heart failure Status: Acute (5) ESRD (end stage renal disease) on dialysis: Code(s): N18.6 - End stage renal disease; Z99.2 - Dependence on renal dialysis Status: Acute (6) Diabetes: Qualifiers: Diabetes mellitus type: type 2 Diabetes mellitus termite control servicer insulin use: without termite control servicer use Diabetes mellitus complication status: with kidney complications Diabetes mellitus complication detail: with chronic kidney disease Chronic kidney disease stage: on chronic dialysis Qualified Code(s): E11.22 - Type 2 diabetes mellitus with diabetic chronic kidney disease; N18.6 - End stage renal disease; Z99.2 - Dependence on renal dialysis Code(s): E11.9 - Type 2 diabetes mellitus without complications Status: Chronic Plan This is 84-year-old male who presents to the ED with altered mental status on 07/21/2024. He did not meet SIRS criteria but lactic acid was elevated to 2.5. CT head showed no significant abnormalities. Could not obtain MRI brain but repeat CT brain showed no acute findings. Chest x-ray showed central congestive changes and pulmonary edema. Viral PCR was negative. Urine culture negative blood culture negative. CT chest abdomen pelvis showing small right pleural effusion, 3 cm indeterminate left renal mass, cholelithiasis, small amount of abdominal pelvic ascites and umbilical hernia which contains a focal small bowel (easily reducible). Ammonia level came back elevated at 122. ABG 7.4 04/03/2069 on room air. TSH folate and B12 was normal. Troponin flat with 0.028-0.031. Suspected altered mental status secondary to ammonia levels. Treated with lactulose with improvement in mental status. Initially had tube put NG tube. NG tube has now been discontinued. Patient has no history of cirrhosis or ethyl alcohol abuse. Total bilirubin was 3.3 on admission with normal LFTs. Total bilirubin trended down. Ultrasound retroperitoneal duplex showed pulsatile antegrade flow in the portal veins secondary to CHF. CT showing small amount of abdominal and pelvic ascites but no abnormality seen of the liver. Echo showed normal LV with hyperdynamic systolic function ejection fraction more than 70%, severely dilated RV with reduced systolic function, RV pressure overload significantly elevated RAP. Biatrial enlargement. There is a small mobile echodensity in the RA possibly an eustachian valve. He underwent PT OT evaluation and required further rehabilitation which was arranged with the help of care coordination. He continued hemodialysis during hospital stay with nephrology consultation.plannedf or right temp dialysis catheter removal. general surgery been consulted. This is scheduled for 08/03/2024 Chronic AFib off Coreg due to bradycardia. On apixaban now. Heart rate stable Chronic back pain status post back stimulator. This probably related to his back pain. Advised to see pain management/spine surgeon for further evaluation as an outpatient basis. Hypertension Thrombocytopenia mild chronic Congestive heart failure chronic diastolic well compensated End-stage renal disease on hemodialysis inpatient hemodialysis per nephrology Chronic anemia with no obvious bleeding. Type 2 diabetes: SSI DVT prophylaxis on apixaban Code status full code Subjective Date/time seen: 08/02/24 12:52 Interval history: No overnight events. No new complaints. His catheter removal is scheduled for tomorrow. Discussed with veneer grader. Review of Systems Review of Systems: All systems reviewed & are unremarkable except as noted in HPI and below Exam Narrative: Gen - NARD undergoing HD. HEENT -NAD Chest - lungs clear anteriorly. Right upper chest dialysis cath in situ CV - RRR S1/S2 Abd - Soft, obese, NT Ext - no significant pedal edema. LUE fistula accessed Neuro - alert and appropriate Skin - Warm and dry Objective Data Vital Signs Vital Signs: Vital Signs - 24 hr 08/01/24 14:00 08/01/24 20:00 08/01/24 20:11 Temperature 97.0 F L Pulse Rate 80 68 77 Respiratory Rate 18 18 20 Blood Pressure 110/72 Pulse Oximetry 100 99 Oxygen Delivery Room Air Fraction of Inspired Oxygen 21 08/01/24 20:14 08/01/24 21:18 08/02/24 06:00 Temperature 97.8 F 97.1 F L Pulse Rate 68 71 Respiratory Rate 18 18 Blood Pressure 102/60 88/48 L Pulse Oximetry 97 99 100 Oxygen Delivery Room Air Fraction of Inspired Oxygen 08/02/24 08:00 08/02/24 08:07 08/02/24 08:07 Temperature Pulse Rate 78 Respiratory Rate 20 Blood Pressure Pulse Oximetry 100 97 Oxygen Delivery Room Air Room Air Fraction of Inspired Oxygen 21 Intake/Output Intake/Output: Intake & Output 07/30/24 07/31/24 08/01/24 08/02/24 23:59 23:59 23:59 23:59 Intake Total 1080 1460 1700 340 Output Total 2324 5 Balance -1244 1460 1695 340 Meds/Results Medications: Active Medications Generic Name Dose Route Start Last Admin Trade Name Freq PRN Reason Stop Dose Admin Acetaminophen 650 mg 07/21/24 12:38 08/01/24 22:37 Acetaminophen 325 Mg Tablet PO 650 mg Q6H PRN Administration Mild Pain (1-3) Or Fever Albuterol 2 puff 07/21/24 12:38 Albuterol Sulfate (*Sp) Aerosol 1 Puff INHALATION Q6HRT PRN sob/wheezing Allopurinol 100 mg 07/21/24 12:50 08/01/24 08:28 Allopurinol 100 Mg Tablet PO 100 mg DAILY CESAR Administration Apixaban 2.5 mg 07/21/24 12:50 08/02/24 08:34 Apixaban 2.5 Mg Tablet PO 2.5 mg Q12HR CESAR Administration Atorvastatin Calcium 10 mg 07/21/24 12:50 08/01/24 08:27 Atorvastatin 10 Mg Tablet PO 10 mg DAILY CESAR Administration Benzonatate 0 mg 07/21/24 12:40 07/30/24 08:01 Benzonatate 100 Mg Capsule PO 200 mg TID PRN Administration Cough Bumetanide 1 mg 07/21/24 17:00 08/01/24 16:48 Bumetanide 1 Mg Tablet PO 1 mg BID CESAR Administration Calcitriol 0.25 mcg 07/21/24 13:00 08/01/24 08:33 Calcitriol 0.25 Mcg Capsule PO 0.25 mcg [id number] CESAR Administration Calcium Acetate 1,334 mg 07/21/24 12:00 08/02/24 08:33 Calcium Acetate 667 Mg Tablet PO 1,334 mg TIDWM CESAR Administration Cyanocobalamin 1,000 mcg 07/21/24 12:50 08/01/24 08:27 Cyanocobalamin 1,000 Mcg Tablet PO 1,000 mcg DAILY CESAR Administration Dextrose 12.5 gm 07/21/24 08:12 Dextrose 50% 25 Gm/50 Ml Syringe IV PUSH PRN PRN Hypoglycemia Protocol Dextrose 12.5 gm 07/21/24 12:35 Dextrose 50% 25 Gm/50 Ml Syringe IV PUSH PRN PRN Hypoglycemia Protocol Ferrous Sulfate 650 mg 07/21/24 13:00 07/31/24 08:10 Ferrous Sulfate [address] PO 650 mg Q48HR CESAR Administration Glucagon 1 mg 07/21/24 12:35 Glucagon For Inj 1 Mg Vial IM PRN PRN Hypoglycemia Protocol Glucose 15 gm 07/21/24 12:35 Glucose Oral Gel 15 Gm Of Glucse In 37.5 Gm Tube PO PRN PRN Hypoglycemia Protocol Albumin Human 50 mls @ 999 mls/hr 07/21/24 08:43 Albutein IVPB 08/20/24 08:42 Q10M PRN HYPOTENSION Dextrose 1,000 mls @ 100 mls/hr 07/21/24 12:35 Dextrose 5% 1,000 Ml IVPB PRN PRN Hypoglycemia Protocol Insulin Aspart 4 - 8 units 07/28/24 08:00 08/02/24 08:32 Insulin Aspart (*Bkc) 100 Units/Ml SUB-Q Not Given ACINSULIN [facility] Protocol Lactulose 20 gm 07/21/24 18:00 08/01/24 19:47 Lactulose 20 Gm/30 Ml Udc PO Not Given TID CESAR Midodrine 10 mg 07/21/24 12:43 08/02/24 09:24 Midodrine Hcl 10 Mg Tablet PO 10 mg DAILY PRN Administration Hypotension with dialysis Ondansetron HCl 4 mg 07/21/24 08:12 Ondansetron Inj 4 Mg/2 Ml Vial IV PUSH Q4H PRN Nausea Fluticasone/Salmeterol 2 puff 07/21/24 20:00 08/02/24 08:07 Fluticasone/Salmeterol 115-21 Mcg Inhaler 1 Puff INHALATION 2 puff Q12HRT CESAR Administration Vitamin D 2,000 units 07/21/24 12:50 08/01/24 08:28 Cholecalciferol 1,000 Units Tablet PO 2,000 units DAILY CESAR Administration Radiology Results: ITS Impressions Chest/Abdomen/Pelvis CT 07/21/24 07:04 Impression: Small right pleural effusion. 3 cm indeterminate left renal mass. Further evaluation with ultrasound or pre and postcontrast CT/MR advised. Cholelithiasis. Small amount of abdominopelvic ascites. Umbilical hernia which contains a focal small bowel. Head CT 07/21/24 17:53 IMPRESSION: 1. 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 Arterial/Peripheral Duplex 07/21/24 19:22 IMPRESSION: 1. Pulsatile antegrade flow in the portal veins, likely secondary to congestive heart failure. Chest X-Ray 07/25/24 06:10 IMPRESSION: 1. Mild atelectasis in the lower lung zones. 2. Cardiomegaly. Abdomen X-Ray 07/26/24 17:36 IMPRESSION: NG tube, in good position. Modified Barium Swallow 07/27/24 08:21 IMPRESSION: 1. No laryngeal penetration or aspiration. 2. Please refer to the speech therapy report for recommendations. Labs Labs: Laboratory Results - last 24 hr 08/01/24 08/01/24 08/02/24 16:36 20:17 06:36 WBC 4.9 RBC 3.62 L Hgb 11.8 L Hct 36.9 L MCV 101.9 H MCH 32.6 MCHC 32.0 RDW 16.4 H Plt Count 84 L MPV 11.8 H % Immature Plt Fraction 6.3 Sodium 134 L Potassium 4.7 Chloride 97 L Carbon Dioxide 29 Anion Gap 8 BUN 64 H D Creatinine 8.00 H Estim Creat Clear Calc 8 Estimated GFR 8 L Glucose 148 H POC Capillary Glucose 163 H 154 H Calcium 9.0 Phosphorus 4.1 Albumin 3.4 L 08/02/24 08:07 WBC RBC Hgb Hct MCV MCH MCHC RDW Plt Count MPV % Immature Plt Fraction Sodium Potassium Chloride Carbon Dioxide Anion Gap BUN Creatinine Estim Creat Clear Calc Estimated GFR Glucose POC Capillary Glucose 138 H Calcium Phosphorus Albumin
--- NOTE | 2024-08-02 14:10 | PM.CNGS ---
Assessment and Plan Assessment and plan (1) Encounter for adjustment and management of vascular access device: Code(s): Z45.2 - Encounter for adjustment and management of vascular access device Status: Acute Assessment and Plan: will remove right internal jugular tunneled central venous catheter as it is no longer needed. Patient will continue to dialyze using left arm [place] graft. Discussed the procedure with the patient. Planned to proceed tomorrow afternoon. He agrees to go ahead. (2) ESRD (end stage renal disease) on dialysis: Code(s): N18.6 - End stage renal disease; Z99.2 - Dependence on renal dialysis Status: Acute History of Present Illness Consult details Consult date: 08/02/24 Reason for consult: other ( dialysis catheter no longer needed) Requesting physician: Brittany Johnson MD Narrative: the patient has working left arm [place] graft. Requested by Nephrology to remove right internal jugular tunneled central venous catheter. PMFSH Past Medical History Medical History Gout Sleep apnea intolerant of CPAP End-stage renal disease on hemodialysis Chronic anemia Benign prostatic hyperplasia Pulmonary hypertension Anemia of chronic disease Chronic anticoagulation Umbilical hernia Iron deficiency anemia B12 deficiency anemia Congestive heart failure Echocardiogram October 2020: Indeterminate diastolic function, EF 65-70%, mild right ventricular enlargement, mildly increased left ventricular wall thickness, mild left atrial enlargement, mild mitral valve regurgitation, mild tricuspid valve regurgitation, moderate pulmonary hypertension with RVSP 59, moderate pulmonic valve regurgitation Atrial fibrillation Essential (primary) hypertension Mixed hyperlipidemia Type 2 diabetes mellitus with diabetic neuropathy Surgical History Surgical History Status post insertion of spinal cord stimulator History of cataract extraction with lens replacement History of bilateral knee arthroplasty Normal colonoscopy (~2007) Family History Family History Father Cerebrovascular accident Mother Hypertension Sibling Hypertension Other Kidney disease, chronic, end stage on dialysis Social History Social History Social History: Surrogate medical decision maker: Kathy Yanez, spouse. Code status: Full code. Smoking packs per day: 0.5 Smoking cigarettes per day: 10.0 Years smoked: 2.5 Smoking pack-years: 1.25 Smoking status: Former smoker Second hand tobacco smoke exposure: Yes Alcohol intake: unknown Substance use: unknown Substance use type: unknown Do You Feel Safe in your Home?: Yes Lack of Transportation: No Lack of Food: Never True Current Housing: I Have Housing Concerned About Future Housing: No Difficulty Paying Gas/Electric Bills: No Difficulty Paying for Meds: No Currently Unemployed: No Education: Bachelor's Degree Difficulty w/ Childcare or Family Care: No Living arrangements: with family Additional living arrangements comments: Lives with spouse of nearly 60 years. They have a son and daughter. Occupation/Education: retired Additional occupation/education comments: Retired from working with [employer]. Spiritual care concerns: No Meds Home Medications and Allergies Home Medications ?Medication ?Instructions ?Recorded ?Confirmed ?Type cholecalciferol (vitamin D3) 50 50 mcg PO DAILY 12/26/22 07/21/24 History mcg (2,000 unit) capsule cyanocobalamin (vitamin B-12) 1,000 mcg PO DAILY 11/03/23 07/21/24 History 1,000 mcg capsule calcitriol 0.25 mcg capsule 0.25 mcg PO 4XW #48 caps 11/19/23 07/21/24 Rx midodrine 10 mg tablet 10 mg PO WITH DIALYSIS PRN 12/30/23 07/21/24 Rx hypotension with dialysis #12 tabs ferrous sulfate 325 mg (65 mg 650 mg (2 x 325 mg (65 mg iron)) 01/31/24 07/21/24 Rx iron) tablet (FeroSul) PO EVERY OTHER DAY #90 tabs atorvastatin 10 mg tablet 10 mg PO DAILY #90 tabs 02/23/24 07/21/24 Rx apixaban 2.5 mg tablet (Eliquis) 2.5 mg PO Q12HR #180 tabs 03/12/24 07/21/24 Rx allopurinol 100 mg tablet 100 mg PO DAILY #90 tabs 03/31/24 07/21/24 Rx bumetanide 1 mg tablet 1 mg PO BID #60 tabs 06/16/24 07/21/24 Rx benzonatate 100 mg capsule See Rx Instructions .Route 07/05/24 07/21/24 Rx .COMPLEX #60 caps albuterol sulfate 90 mcg/actuation 2 puff inhalation Q6H PRN 07/12/24 07/21/24 History aerosol inhaler sob/wheezing calcium acetate(phosphat bind) 667 1,334 mg PO TIDWM 07/12/24 07/21/24 History mg tablet liraglutide 0.6 mg/0.1 mL (18 mg/3 1.2 mg subcut DAILY 07/12/24 07/21/24 History mL) subcutaneous pen injector (Victoza 2-Vidal) acetaminophen 325 mg tablet 650 mg (2 x 325 mg) PO Q6H PRN 07/17/24 07/21/24 Rx Mild Pain (1-3) Or Fever #30 tabs fluticasone 250 mcg-salmeterol 50 1 inh inhalation Q12H 07/21/24 07/21/24 History mcg/dose blistr powdr for inhalation (Advair Diskus) fluticasone 250 mcg-salmeterol 50 1 inh inhalation Q12H 07/21/24 07/21/24 History mcg/dose blistr powdr for inhalation (Advair Diskus) lactulose 20 gram/30 mL oral 20 g (30 mL) PO BID #300 mL 07/30/24 Rx solution Allergies Allergy/AdvReac Type Severity Reaction Status Date / Time No Known Allergies Allergy Verified 05/24/24 13:43 Vital Signs Vital Signs - 24 hr 08/01/24 20:00 08/01/24 20:11 08/01/24 20:14 Temperature Pulse Rate 68 77 Respiratory Rate 18 20 Blood Pressure Pulse Oximetry 99 97 Oxygen Delivery Room Air Room Air Fraction of Inspired Oxygen 21 08/01/24 21:18 08/02/24 06:00 08/02/24 08:00 Temperature 36.6 C 36.2 C L Pulse Rate 68 71 Respiratory Rate 18 18 Blood Pressure 102/60 88/48 L Pulse Oximetry 99 100 100 Oxygen Delivery Room Air Fraction of Inspired Oxygen 08/02/24 08:07 08/02/24 08:07 08/02/24 09:43 Temperature 36.7 C Pulse Rate 78 71 Respiratory Rate 20 18 Blood Pressure Pulse Oximetry 97 Oxygen Delivery Room Air Fraction of Inspired Oxygen 21 Exam Const: General: comfortable, alert and awake Chest: Chest palpation & inspection: abnormal inspection of the chest ( Right IJ tunneled central venous catheter noted) no swelling and no erythema and no crepitus Results Labs 08/02/24 06:36 08/02/24 06:36 Labs: Abnormal lab results 08/01/24 08/01/24 08/02/24 Range/Units 16:36 20:17 06:36 RBC 3.62 L (4.6-6.20) M/mm3 Hgb 11.8 L (14.0-18.0) g/dL Hct 36.9 L (42.0-52.0) % MCV 101.9 H (80-100) fl RDW 16.4 H (11.5-14.5) % Plt Count 84 L (150-375) k/mm3 MPV 11.8 H (7.4-10.4) fl Sodium 134 L (137-145) mmol/L Chloride 97 L (98-107) mmol/L BUN 64 H D (9-20) mg/dL Creatinine 8.00 H (0.7-1.3) mg/dL Estimated GFR 8 L (59 - ) Glucose 148 H (65-110) mg/dL POC Capillary Glucose 163 H 154 H (65-105) mg/dl Albumin 3.4 L (3.5-5.1) g/dL 08/02/24 Range/Units 08:07 RBC (4.6-6.20) M/mm3 Hgb (14.0-18.0) g/dL Hct (42.0-52.0) % MCV (80-100) fl RDW (11.5-14.5) % Plt Count (150-375) k/mm3 MPV (7.4-10.4) fl Sodium (137-145) mmol/L Chloride (98-107) mmol/L BUN (9-20) mg/dL Creatinine (0.7-1.3) mg/dL Estimated GFR (59 - ) Glucose (65-110) mg/dL POC Capillary Glucose 138 H (65-105) mg/dl Albumin (3.5-5.1) g/dL Diabetes panel 08/02/24 Range/Units 06:36 Sodium 134 L (137-145) mmol/L Potassium 4.7 (3.4-5.0) mmol/L Chloride 97 L (98-107) mmol/L Carbon Dioxide 29 (22-30) mmol/L BUN 64 H D (9-20) mg/dL Creatinine 8.00 H (0.7-1.3) mg/dL Glucose 148 H (65-110) mg/dL Calcium 9.0 (8.4-10.2) mg/dL Albumin 3.4 L (3.5-5.1) g/dL Calcium panel 08/02/24 Range/Units 06:36 Calcium 9.0 (8.4-10.2) mg/dL Phosphorus 4.1 (2.5-4.5) mg/dL Albumin 3.4 L (3.5-5.1) g/dL Pituitary panel 08/02/24 Range/Units 06:36 Sodium 134 L (137-145) mmol/L Potassium 4.7 (3.4-5.0) mmol/L Chloride 97 L (98-107) mmol/L Carbon Dioxide 29 (22-30) mmol/L BUN 64 H D (9-20) mg/dL Creatinine 8.00 H (0.7-1.3) mg/dL Glucose 148 H (65-110) mg/dL Calcium 9.0 (8.4-10.2) mg/dL Adrenal panel 08/02/24 Range/Units 06:36 Sodium 134 L (137-145) mmol/L Potassium 4.7 (3.4-5.0) mmol/L Chloride 97 L (98-107) mmol/L Carbon Dioxide 29 (22-30) mmol/L BUN 64 H D (9-20) mg/dL Creatinine 8.00 H (0.7-1.3) mg/dL Glucose 148 H (65-110) mg/dL Calcium 9.0 (8.4-10.2) mg/dL Albumin 3.4 L (3.5-5.1) g/dL All other labs normal.
[2024-08-02] MEDS: CHOLECALCIFEROL 1,000 UNITS TABLET 2000 UNITS PO (14:24)
[2024-08-02] MEDS: ATORVASTATIN 10 MG TABLET PO (14:24)
[2024-08-02] MEDS: BUMETANIDE 1 MG TABLET PO ×2 (14:24→20:51)
[2024-08-02] MEDS: allopurinoL 100 MG TABLET PO (14:24)
[2024-08-02] MEDS: CYANOCOBALAMIN 1,000 MCG TABLET 1000 MCG PO (14:25)
[2024-08-02] MEDS: FERROUS SULFATE 325 MG TABLET DR 650 MG PO (14:25)
[2024-08-02 14:26] LABS: Glucose Point of Care 114 mg/dl (65-105)
[2024-08-02] MEDS: calcitrioL 0.25 MCG CAPSULE PO (14:29)
--- NOTE | 2024-08-02 14:38 | PCPTNOTE ---
Attempted to see patient for PT, however patient just got back from dialysis and per RN patient's blood pressure is a little low and advised to wait to see patient for PT. Patient unable to be seen for this reason.
[2024-08-02] MEDS: traMADol HCL (*CRX) 50 MG TABLET PO (16:21)
[2024-08-02 16:48] LABS: Glucose Point of Care 212 mg/dl (65-105)
[2024-08-03] VITALS (31 sets, daily range): BP systolic 87–126; BP diastolic 30–68; PULSE 62–85; RESP 14–20; TEMP 35.9–37; O2SAT 94–100
[2024-08-03 07:16] LABS: Glucose Point of Care 165 mg/dl (65-105)
[2024-08-03 07:35] LABS: Glucose Point of Care 130 mg/dl (65-105)
[2024-08-03] MEDS: MIDODRINE HCL 10 MG TABLET PO (08:15)
--- NOTE | 2024-08-03 10:20 | P.PNNP_ITS ---
Progress Note: A&P Assessment and Plan (1) End-stage renal disease (ESRD): Code(s): N18.6 - End stage renal disease Status: Chronic Assessment and Plan: * HD today * plan next HD treatment on Friday (due to holiday schedule) to resume // schedule * follow electrolytes, volume status, and clearance (2) Altered mental status: Qualifiers: Altered mental status type: disorientation Qualified Code(s): R41.0 - Disorientation, unspecified Code(s): R41.82 - Altered mental status, unspecified Status: Resolved Assessment and Plan: * resolved * as noted on presentation * no evidence of infection/sepsis... * however, mild lactic acidosis noted * imaging reviewed: * CT head: No significant abnormality seen. * CXR negative for PNA. viral PCR negative. * CT chest/abd/pelvis: small right pleural effusion, 3 cm indeterminate left renal mass, cholelithiasis, small amount of abdominopelvic ascites, umbilical hernia which contains a focal small bowel * questionable UTI by UA * elevated ammonia level noted * initiated on lactulose on admission * holding potential sedative medications (gabapentin and norco) * follow trend of mental status (3) Hypotension: Code(s): I95.9 - Hypotension, unspecified Status: Chronic Assessment and Plan: * chronic issue at baseline * on midodrine therapy * follow trend of hemodynamics (4) Anemia: Qualifiers: Anemia type: unspecified type Qualified Code(s): D64.9 - Anemia, unspecified Code(s): D64.9 - Anemia, unspecified Status: Chronic Assessment and Plan: * due to ESRD * hold Retacrit since Hgb > 10 * follow trend of H/H (5) Diabetes: Qualifiers: Chronic kidney disease stage: on chronic dialysis Diabetes mellitus complication detail: with chronic kidney disease Diabetes mellitus complication status: with kidney complications Diabetes mellitus [employer] insulin use: w ithout [employer] use Diabetes mellitus type: type 2 Qualified Code(s): E11.22 - Type 2 diabetes mellitus with diabetic chronic kidney disease; N18.6 - End stage renal disease; Z99.2 - Dependence on renal dialysis Code(s): E11.9 - Type 2 diabetes mellitus without complications Status: Chronic Assessment and Plan: * follow accu-cheks * glycemic control per hospitalists Will continue to follow. Subjective Date/time seen: 12/31/24 10:20 Interval history: Follow-up for end stage renal disease on hemodialysis. Tolerating dialysis treatment at the time of my visit (seen on HD at 10:10AM) and tolerated dialysis treatment yesterday; stability in mental status apparent; noted plans for tunneled HD catheter removal this afternoon; no other issues/complaints voiced currently. Exam 2 Narrative: General: elderly male in NAD Heart: IRRR, normal S1 and S2; no rub Lungs: clear anteriorly; decreased at bases Abdomen: soft, nontender, nondistended, positive bowel sounds Extremities: no cyanosis or clubbing; 1+ edema (chronic) Skin: warm and intact Objective Data Vital Signs Vital Signs: Vital Signs Temp Pulse Resp BP Pulse Ox O2 Del Method FiO2 08/03/24 10:15 62 97/53 L 08/03/24 10:00 71 113/62 08/03/24 09:45 77 99/56 L 08/03/24 09:30 64 105/57 L 08/03/24 09:15 64 94/61 L 08/03/24 09:00 63 101/56 L 08/03/24 08:45 68 97/57 L 08/03/24 08:42 66 97/59 L 08/03/24 08:22 97.9 F 67 18 99/55 L 08/03/24 08:02 92/68 L 08/03/24 08:00 Room Air 08/03/24 06:00 97.6 F 72 20 91/62 L 99 08/03/24 01:25 98.0 F 84 18 102/61 98 08/02/24 21:20 97.7 F 74 20 98/52 L 100 08/02/24 21:14 97.9 F 73 18 98/62 L 100 08/02/24 20:55 98 Room Air 21 Intake/Output Intake/Output: Intake & Output 07/31/24 08/01/24 08/02/24 08/03/24 23:59 23:59 23:59 23:59 Intake Total 1460 1700 1340 250 Output Total 5 1293 1000 Balance 1460 1695 47 -750 Meds/Results Medications: Active Medications Generic Name Dose Route Start Last Admin Trade Name Freq PRN Reason Stop Dose Admin Acetaminophen 650 mg 07/21/24 12:38 08/01/24 22:37 Acetaminophen 325 Mg Tablet PO 650 mg Q6H PRN Administration Mild Pain (1-3) Or Fever Albuterol 2 puff 07/21/24 12:38 Albuterol Sulfate (*Sp) Aerosol 1 Puff INHALATION Q6HRT PRN sob/wheezing Allopurinol 100 mg 07/21/24 12:50 08/03/24 10:56 Allopurinol 100 Mg Tablet PO Not Given DAILY CESAR Apixaban 2.5 mg 07/21/24 12:50 08/02/24 08:34 Apixaban 2.5 Mg Tablet PO 2.5 mg Q12HR CESAR Administration Atorvastatin Calcium 10 mg 07/21/24 12:50 08/03/24 10:56 Atorvastatin 10 Mg Tablet PO Not Given DAILY CESAR Benzonatate 0 mg 07/21/24 12:40 07/30/24 08:01 Benzonatate 100 Mg Capsule PO 200 mg TID PRN Administration Cough Bumetanide 1 mg 07/21/24 17:00 08/03/24 10:56 Bumetanide 1 Mg Tablet PO Not Given BID CESAR Calcitriol 0.25 mcg 07/21/24 13:00 08/02/24 14:29 Calcitriol 0.25 Mcg Capsule PO 0.25 mcg [id number] CESAR Administration Calcium Acetate 1,334 mg 07/21/24 12:00 08/03/24 12:25 Calcium Acetate 667 Mg Tablet PO 1,334 mg TIDWM CESAR Administration Cyanocobalamin 1,000 mcg 07/21/24 12:50 08/03/24 10:57 Cyanocobalamin 1,000 Mcg Tablet PO Not Given DAILY CESAR Dextrose 12.5 gm 07/21/24 08:12 Dextrose 50% 25 Gm/50 Ml Syringe IV PUSH PRN PRN Hypoglycemia Protocol Dextrose 12.5 gm 07/21/24 12:35 Dextrose 50% 25 Gm/50 Ml Syringe IV PUSH PRN PRN Hypoglycemia Protocol Ferrous Sulfate 650 mg 07/21/24 13:00 08/02/24 14:25 Ferrous Sulfate [address] PO 650 mg Q48HR CESAR Administration Glucagon 1 mg 07/21/24 12:35 Glucagon For Inj 1 Mg Vial IM PRN PRN Hypoglycemia Protocol Glucose 15 gm 07/21/24 12:35 Glucose Oral Gel 15 Gm Of Glucse In 37.5 Gm Tube PO PRN PRN Hypoglycemia Protocol Albumin Human 50 mls @ 999 mls/hr 07/21/24 08:43 Albutein IVPB 08/20/24 08:42 Q10M PRN HYPOTENSION Dextrose 1,000 mls @ 100 mls/hr 07/21/24 12:35 Dextrose 5% 1,000 Ml IVPB PRN PRN Hypoglycemia Protocol Insulin Aspart 4 - 8 units 07/28/24 08:00 08/03/24 11:42 Insulin Aspart (*Bkc) 100 Units/Ml SUB-Q Not Given ACINSULIN [facility] Protocol Lactulose 20 gm 07/21/24 18:00 08/03/24 12:26 Lactulose 20 Gm/30 Ml Udc PO 20 gm TID CESAR Administration Midodrine 10 mg 07/21/24 12:43 08/03/24 08:15 Midodrine Hcl 10 Mg Tablet PO 10 mg DAILY PRN Administration Hypotension with dialysis Ondansetron HCl 4 mg 07/21/24 08:12 Ondansetron Inj 4 Mg/2 Ml Vial IV PUSH Q4H PRN Nausea Fluticasone/Salmeterol 2 puff 07/21/24 20:00 08/03/24 08:19 Fluticasone/Salmeterol 115-21 Mcg Inhaler 1 Puff INHALATION Not Given Q12HRT [facility] Tramadol HCl 50 mg 08/02/24 15:37 08/02/24 16:21 Tramadol Hcl (*Crx) 50 Mg Tablet PO 50 mg Q8H PRN Administration Pain Rated 4-6 Vitamin D 2,000 units 07/21/24 12:50 08/03/24 10:57 Cholecalciferol 1,000 Units Tablet PO Not Given DAILY [facility] Radiology Results: ITS Impressions Chest/Abdomen/Pelvis CT 07/21/24 07:04 Impression: Small right pleural effusion. 3 cm indeterminate left renal mass. Further evaluation with ultrasound or pre and postcontrast CT/MR advised. Cholelithiasis. Small amount of abdominopelvic ascites. Umbilical hernia which contains a focal small bowel. Head CT 07/21/24 17:53 IMPRESSION: 1. 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 Arterial/Peripheral Duplex 07/21/24 19:22 IMPRESSION: 1. Pulsatile antegrade flow in the portal veins, likely secondary to congestive heart failure. Chest X-Ray 07/25/24 06:10 IMPRESSION: 1. Mild atelectasis in the lower lung zones. 2. Cardiomegaly. Abdomen X-Ray 07/26/24 17:36 IMPRESSION: NG tube, in good position. Modified Barium Swallow 07/27/24 08:21 IMPRESSION: 1. No laryngeal penetration or aspiration. 2. Please refer to the speech therapy report for recommendations. Labs Labs: Laboratory Tests 08/02/24 06:36 08/02/24 06:36
[2024-08-03 11:29] LABS: Glucose Point of Care 110 mg/dl (65-105)
[2024-08-03] MEDS: CALCIUM ACETATE 667 MG TABLET 1334 MG PO ×2 (12:25→17:13)
[2024-08-03] MEDS: LACTULOSE 20 GM/30 ML UDC PO ×2 (12:26→17:12)
[2024-08-03 13:05] LABS: Glucose Point of Care 117 mg/dl (65-105)
--- NOTE | 2024-08-03 13:35 | PCOTNOTE ---
Patient out of the room at this time. Patient down having a procedure to have his port removed.
--- NOTE | 2024-08-03 13:42 | PCPTNOTE ---
The patient treatment was not able to be completed on 08/03/2024 due to patient out of the room for procedure. Will plan to continue treatment per plan of care.
--- NOTE | 2024-08-03 14:21 | WPDHPUPDATE1 ---
History and Physical Update Update Date/Time: 08/03/24 14:21 History and Physical has been reviewed, including an updated exam of the patient. There are NO changes in the patient's condition. Risks, benefits, and alternatives have been discussed and questions answered. Patient agrees to proceed with procedure.
[2024-08-03] MEDS: ceFAZolin 2 GM/D5W 50 ML 2 GM/50 ML BAG IVPB (14:42)
[2024-08-03] MEDS: LIDO 1%/EPINEPHRINE 1:100,000 20 ML VIAL INFILTRATE (15:01)
[2024-08-03] MEDS: SODIUM CHLORIDE 0.9% IV 500 ML 30 ML IV CONT (15:27)
--- NOTE | 2024-08-03 15:27 | W.PM.PROC2 ---
Procedure Note - Detailed Date of Procedure 08/03/24 Pre-op Diagnosis End-stage renal disease, tunneled dialysis catheter no longer needed Post-op Diagnosis Same Procedure Performed Removal right internal jugular tunneled central venous catheter Surgeon Mat Green MD Anesthesia MAC and Local Indications Patient is on dialysis and has a working left arm AV graft. His tunneled dialysis catheter is no longer needed and nephrology has requested that it be removed. Findings Catheter removed without difficulty. Description of Procedure Patient was taken to surgery and sedation was administered. Prep and drape of the area the catheter on the right chest and right lower neck was carried out. The suture at the exit site of the catheter was removed. I palpated the length of the catheter and determined that the cough was directly adjacent to the exit site in the skin. Local was infiltrated in the area of the cuff. A longitudinal incision from the exit site over the top of the catheter was then carried out. I lifted the skin edges and then dissected the cuff free of the surrounding fibrous and subcutaneous tissues. Once the cuff and catheter were free, I cut the distal catheter and removed it. I then slowly removed the tunneled portion of the catheter that communicated with the internal jugular vein. Pressure was held over the entry site to the internal jugular vein. We held pressure for over 5 minutes. No back bleeding occurred. I then used 4-0 Vicryl subcuticular sutures to loosely approximate the incision but leave open the exit site of the catheter. The wounds were dressed with 2 x 2 and a transparent adhesive dressing. Patient was then transferred to recovery in stable condition. Sponge and needle counts were correct x2. Estimated Blood Loss -5 Urine Output 5 Drains No Packing No Pathology None sent Complications None Condition Stable Disposition PACU [facility] Billing Surgery - Charge Forward: Surgery Billing (Removal right internal jugular tunneled central venous catheter)
[2024-08-03 16:02] LABS: Glucose Point of Care 124 mg/dl (65-105)
--- NOTE | 2024-08-03 17:06 | PM.IMPN ---
Progress Note: A&P Assessment and Plan (1) Altered mental status: Qualifiers: Altered mental status type: disorientation Qualified Code(s): R41.0 - Disorientation, unspecified Code(s): R41.82 - Altered mental status, unspecified Status: Resolved (2) Increased ammonia level: Code(s): R79.89 - Other specified abnormal findings of blood chemistry Status: Acute (3) Dysphagia: Code(s): R13.10 - Dysphagia, unspecified Status: Acute (4) Acute on chronic diastolic CHF (congestive heart failure): Code(s): I50.33 - Acute on chronic diastolic (congestive) heart failure Status: Acute (5) ESRD (end stage renal disease) on dialysis: Code(s): N18.6 - End stage renal disease; Z99.2 - Dependence on renal dialysis Status: Acute (6) Diabetes: Qualifiers: Diabetes mellitus type: type 2 Diabetes mellitus termite exterminator insulin use: without termite exterminator use Diabetes mellitus complication status: with kidney complications Diabetes mellitus complication detail: with chronic kidney disease Chronic kidney disease stage: on chronic dialysis Qualified Code(s): E11.22 - Type 2 diabetes mellitus with diabetic chronic kidney disease; N18.6 - End stage renal disease; Z99.2 - Dependence on renal dialysis Code(s): E11.9 - Type 2 diabetes mellitus without complications Status: Chronic Plan This is 84-year-old male who presents to the ED with altered mental status on 07/21/2024. He did not meet SIRS criteria but lactic acid was elevated to 2.5. CT head showed no significant abnormalities. Could not obtain MRI brain but repeat CT brain showed no acute findings. Chest x-ray showed central congestive changes and pulmonary edema. Viral PCR was negative. Urine culture negative blood culture negative. CT chest abdomen pelvis showing small right pleural effusion, 3 cm indeterminate left renal mass, cholelithiasis, small amount of abdominal pelvic ascites and umbilical hernia which contains a focal small bowel (easily reducible). Ammonia level came back elevated at 122. ABG 7.4 04/03/2069 on room air. TSH folate and B12 was normal. Troponin flat with 0.028-0.031. Suspected altered mental status secondary to ammonia levels. Treated with lactulose with improvement in mental status. Initially had tube put NG tube. NG tube has now been discontinued. Patient has no history of cirrhosis or ethyl alcohol abuse. Total bilirubin was 3.3 on admission with normal LFTs. Total bilirubin trended down. Ultrasound retroperitoneal duplex showed pulsatile antegrade flow in the portal veins secondary to CHF. CT showing small amount of abdominal and pelvic ascites but no abnormality seen of the liver. Echo showed normal LV with hyperdynamic systolic function ejection fraction more than 70%, severely dilated RV with reduced systolic function, RV pressure overload significantly elevated RAP. Biatrial enlargement. There is a small mobile echodensity in the RA possibly an eustachian valve. He underwent PT OT evaluation and required further rehabilitation which was arranged with the help of care coordination. He continued hemodialysis during hospital stay with nephrology consultation. General surgery been consulted for PermCath removal. Status post PermCath removal 08/03/2024. Chronic AFib off Coreg due to bradycardia. On apixaban now. Heart rate stable Chronic back pain status post back stimulator. This probably related to his back pain. Advised to see pain management/spine surgeon for further evaluation as an outpatient basis. Hypertension Thrombocytopenia mild chronic Congestive heart failure chronic diastolic well compensated End-stage renal disease on hemodialysis inpatient hemodialysis per nephrology Chronic anemia with no obvious bleeding. Type 2 diabetes: SSI DVT prophylaxis on apixaban Code status full code Disposition: To [facility] In a.m. Subjective Date/time seen: 08/03/24 17:06 Interval history: no overnight events, patient underwent dialysis today. Underwent PermCath removal. Review of Systems Review of Systems: All systems reviewed & are unremarkable except as noted in HPI and below Exam Narrative: Gen - NARD undergoing HD. HEENT -NAD Chest - lungs clear anteriorly. CV - RRR S1/S2 Abd - Soft, obese, NT Ext - no significant pedal edema. LUE fistula accessed Neuro - alert and appropriate Skin - Warm and dry Objective Data Vital Signs Vital Signs: Vital Signs - 24 hr 08/02/24 20:55 08/02/24 21:14 08/02/24 21:20 Temperature 97.9 F 97.7 F Pulse Rate 73 74 Respiratory Rate 18 20 Blood Pressure 98/62 L 98/52 L Pulse Oximetry 98 100 100 Oxygen Delivery Room Air Oxygen Flow Rate Fraction of Inspired Oxygen 21 08/03/24 01:25 08/03/24 06:00 08/03/24 08:00 Temperature 98.0 F 97.6 F Pulse Rate 84 72 Respiratory Rate 18 20 Blood Pressure 102/61 91/62 L Pulse Oximetry 98 99 Oxygen Delivery Room Air Oxygen Flow Rate Fraction of Inspired Oxygen 08/03/24 08:02 08/03/24 08:22 08/03/24 08:42 Temperature 97.9 F Pulse Rate 67 66 Respiratory Rate 18 Blood Pressure 92/68 L 99/55 L 97/59 L Pulse Oximetry Oxygen Delivery Oxygen Flow Rate Fraction of Inspired Oxygen 08/03/24 08:45 08/03/24 09:00 08/03/24 09:15 Temperature Pulse Rate 68 63 64 Respiratory Rate Blood Pressure 97/57 L 101/56 L 94/61 L Pulse Oximetry Oxygen Delivery Oxygen Flow Rate Fraction of Inspired Oxygen 08/03/24 09:30 08/03/24 09:45 08/03/24 10:00 Temperature Pulse Rate 64 77 71 Respiratory Rate Blood Pressure 105/57 L 99/56 L 113/62 Pulse Oximetry Oxygen Delivery Oxygen Flow Rate Fraction of Inspired Oxygen 08/03/24 10:15 08/03/24 10:30 08/03/24 10:45 Temperature Pulse Rate 62 71 62 Respiratory Rate Blood Pressure 97/53 L 94/61 L 93/56 L Pulse Oximetry Oxygen Delivery Oxygen Flow Rate Fraction of Inspired Oxygen 08/03/24 11:00 08/03/24 11:15 08/03/24 11:30 Temperature Pulse Rate 71 67 69 Respiratory Rate Blood Pressure 107/55 L 91/56 L 97/50 L Pulse Oximetry Oxygen Delivery Oxygen Flow Rate Fraction of Inspired Oxygen 08/03/24 11:44 08/03/24 12:00 08/03/24 13:00 Temperature 97.8 F 97.6 F Pulse Rate 64 64 63 Respiratory Rate 18 14 Blood Pressure 89/47 L 87/49 L 102/30 L Pulse Oximetry 97 Oxygen Delivery Room Air Oxygen Flow Rate Fraction of Inspired Oxygen 08/03/24 15:27 08/03/24 15:40 08/03/24 15:55 Temperature 97.1 F L Pulse Rate 75 68 70 Respiratory Rate 14 16 16 Blood Pressure 126/68 119/60 104/63 Pulse Oximetry 100 99 94 Oxygen Delivery Simple Face Mask Room Air Room Air Oxygen Flow Rate 6 Fraction of Inspired Oxygen 08/03/24 16:10 08/03/24 16:20 Temperature 98.1 F Pulse Rate 66 71 Respiratory Rate 16 16 Blood Pressure 100/56 L 114/59 L Pulse Oximetry 99 94 Oxygen Delivery Room Air Room Air Oxygen Flow Rate Fraction of Inspired Oxygen Intake/Output Intake/Output: Intake & Output 07/31/24 08/01/24 08/02/24 08/03/24 23:59 23:59 23:59 23:59 Intake Total 1460 1700 1340 250 Output Total 5 1293 1005 Balance 1460 1695 47 -755 Meds/Results Medications: Active Medications Generic Name Dose Route Start Last Admin Trade Name Freq PRN Reason Stop Dose Admin Acetaminophen 500 mg 08/03/24 16:31 Acetaminophen 500 Mg Tablet PO Q6H PRN Pain Rated 1-3 Albuterol 2 puff 07/21/24 12:38 Albuterol Sulfate (*Sp) Aerosol 1 Puff INHALATION Q6HRT PRN sob/wheezing Allopurinol 100 mg 07/21/24 12:50 08/03/24 10:56 Allopurinol 100 Mg Tablet PO Not Given DAILY CESAR Apixaban 2.5 mg 07/21/24 12:50 08/02/24 08:34 Apixaban 2.5 Mg Tablet PO 2.5 mg Q12HR CESAR Administration Atorvastatin Calcium 10 mg 07/21/24 12:50 08/03/24 10:56 Atorvastatin 10 Mg Tablet PO Not Given DAILY CESAR Benzonatate 0 mg 07/21/24 12:40 07/30/24 08:01 Benzonatate 100 Mg Capsule PO 200 mg TID PRN Administration Cough Bumetanide 1 mg 07/21/24 17:00 08/03/24 10:56 Bumetanide 1 Mg Tablet PO Not Given BID CESAR Calcitriol 0.25 mcg 07/21/24 13:00 08/02/24 14:29 Calcitriol 0.25 Mcg Capsule PO 0.25 mcg [id number] CESAR Administration Calcium Acetate 1,334 mg 07/21/24 12:00 08/03/24 12:25 Calcium Acetate 667 Mg Tablet PO 1,334 mg TIDWM CESAR Administration Cyanocobalamin 1,000 mcg 07/21/24 12:50 08/03/24 10:57 Cyanocobalamin 1,000 Mcg Tablet PO Not Given DAILY CESAR Dextrose 12.5 gm 07/21/24 08:12 Dextrose 50% 25 Gm/50 Ml Syringe IV PUSH PRN PRN Hypoglycemia Protocol Dextrose 12.5 gm 07/21/24 12:35 Dextrose 50% 25 Gm/50 Ml Syringe IV PUSH PRN PRN Hypoglycemia Protocol Fentanyl Citrate 12.5 mcg 08/03/24 16:31 Fentanyl Citrate Inj (*Crx) 100 Mcg/2 Ml Vial IV PUSH Q2H PRN Pain Rated 7-10 Ferrous Sulfate 650 mg 07/21/24 13:00 08/02/24 14:25 Ferrous Sulfate [address] PO 650 mg Q48HR CESAR Administration Glucagon 1 mg 07/21/24 12:35 Glucagon For Inj 1 Mg Vial IM PRN PRN Hypoglycemia Protocol Glucose 15 gm 07/21/24 12:35 Glucose Oral Gel 15 Gm Of Glucse In 37.5 Gm Tube PO PRN PRN Hypoglycemia Protocol Albumin Human 50 mls @ 999 mls/hr 07/21/24 08:43 Albutein IVPB 08/20/24 08:42 Q10M PRN HYPOTENSION Dextrose 1,000 mls @ 100 mls/hr 07/21/24 12:35 Dextrose 5% 1,000 Ml IVPB PRN PRN Hypoglycemia Protocol Lactated Ringer's 1,000 mls @ 50 mls/hr 08/03/24 16:31 Lr - Lactated Ringers Iv IV CONT 08/04/24 12:30 .Q20H ONE Insulin Aspart 4 - 8 units 07/28/24 08:00 08/03/24 11:42 Insulin Aspart (*Bkc) 100 Units/Ml SUB-Q Not Given ACINSULIN [facility] Protocol Lactulose 20 gm 07/21/24 18:00 08/03/24 12:26 Lactulose 20 Gm/30 Ml Udc PO 20 gm TID CESAR Administration Midodrine 10 mg 07/21/24 12:43 08/03/24 08:15 Midodrine Hcl 10 Mg Tablet PO 10 mg DAILY PRN Administration Hypotension with dialysis Ondansetron HCl 4 mg 07/21/24 08:12 Ondansetron Inj 4 Mg/2 Ml Vial IV PUSH Q4H PRN Nausea Fluticasone/Salmeterol 2 puff 07/21/24 20:00 08/03/24 08:19 Fluticasone/Salmeterol 115-21 Mcg Inhaler 1 Puff INHALATION Not Given Q12HRT [facility] Tramadol HCl 50 mg 08/02/24 15:37 08/02/24 16:21 Tramadol Hcl (*Crx) 50 Mg Tablet PO 50 mg Q8H PRN Administration Pain Rated 4-6 Tramadol HCl 50 mg 08/03/24 16:31 Tramadol Hcl (*Crx) 50 Mg Tablet PO Q4H PRN Pain Rated 4-6 Vitamin D 2,000 units 07/21/24 12:50 08/03/24 10:57 Cholecalciferol 1,000 Units Tablet PO Not Given DAILY [facility]ESAR Radiology Results: ITS Impressions Chest/Abdomen/Pelvis CT 07/21/24 07:04 Impression: Small right pleural effusion. 3 cm indeterminate left renal mass. Further evaluation with ultrasound or pre and postcontrast CT/MR advised. Cholelithiasis. Small amount of abdominopelvic ascites. Umbilical hernia which contains a focal small bowel. Head CT 07/21/24 17:53 IMPRESSION: 1. 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 Arterial/Peripheral Duplex 07/21/24 19:22 IMPRESSION: 1. Pulsatile antegrade flow in the portal veins, likely secondary to congestive heart failure. Chest X-Ray 07/25/24 06:10 IMPRESSION: 1. Mild atelectasis in the lower lung zones. 2. Cardiomegaly. Abdomen X-Ray 07/26/24 17:36 IMPRESSION: NG tube, in good position. Modified Barium Swallow 07/27/24 08:21 IMPRESSION: 1. No laryngeal penetration or aspiration. 2. Please refer to the speech therapy report for recommendations. Labs Labs: Laboratory Results - last 24 hr 08/02/24 08/03/24 08/03/24 20:34 07:28 11:26 POC Capillary Glucose 165 H 130 H 110 H 08/03/24 08/03/24 13:03 15:56 POC Capillary Glucose 117 H 124 H
[2024-08-03 17:13] LABS: Glucose Point of Care 132 mg/dl (65-105)
[2024-08-03] MEDS: BUMETANIDE 1 MG TABLET PO (17:18)
[2024-08-03] MEDS: traMADol HCL (*CRX) 50 MG TABLET PO (19:59)
[2024-08-03 21:17] LABS: Glucose Point of Care 180 mg/dl (65-105)
[2024-08-04 02:16] VITALS: BP 112/56; PULSE 74; RESP 18; TEMP 36.6; O2SAT 98
[2024-08-04 05:14] VITALS: BP 106/58; PULSE 71; RESP 18; TEMP 36.4; O2SAT 98
[2024-08-04 07:47] LABS: Basophils Percent Auto 0.9 % (0.2-1.2); Eosinophils Percent Auto 0.7 % (0-4.4); Hemoglobin 11.3 g/dL (14.0-18.0); Immature Granulocyte Absolute 0.01 K/mm3 (0.00-0.031); Immature Granulocyte Percent A 0.2 % (0-0.5); Immature Platelet Fraction Pct 6.6 % (0.9-11.2); Lymphocytes Absolute Auto 0.82 K/mm3 (0.9-3.2); Lymphocytes Percent Auto 18.5 % (18.3-44.2); Mean Corpuscular HGB Conc 31.4 g/dl (32-36); Mean Corpuscular Hemoglobin 32.3 pg (26-34); Mean Corpuscular Volume 102.9 fl (80-100); Mean Platelet Volume 12.3 fl (7.4-10.4); Monocytes Absolute Auto 0.8 K/mm3 (0.1-0.6); Monocytes Percent Auto 18.7 % (2.6-8.5); Neutrophils Absolute Auto 2.7 K/mm3 (1.3-6.7); Platelet Count Result 86 k/mm3 (150-375); Red Cell Distribution Width 16.6 % (11.5-14.5); White Blood Count 4.4 K/mm3 (4.5-10.0)
[2024-08-04 07:53] LABS: Glucose Point of Care 142 mg/dl (65-105)
[2024-08-04 08:11] LABS: Alanine Aminotransferase 11 U/L (6-50); Albumin Level 3.4 g/dL (3.5-5.1); Alkaline Phosphatase 101 U/L (38-126); Anion Gap 3 mmol/L (4-12); Aspartate Amino Transferase 33 U/L (17-59); Bilirubin,Total 1.5 mg/dL (0.2-1.3); Blood Urea Nitrogen 28 mg/dL (9-20); Calcium 8.5 mg/dL (8.4-10.2); Carbon Dioxide 34 mmol/L (22-30); Chloride 100 mmol/L (98-107); Estimated CRCL calculation 14 ml/min; Estimated Glomerular Filt Rate 15; Glucose 136 mg/dL (65-110); Sodium 137 mmol/L (137-145)
[2024-08-04 08:33] VITALS: PULSE 66; RESP 18; O2SAT 96
[2024-08-04] MEDS: FLUTICASONE/SALMETEROL 115-21 MCG INHALER 1 PUFF 2 PUFF INHALATION (08:33)
[2024-08-04] MEDS: calcitrioL 0.25 MCG CAPSULE PO (09:28)
[2024-08-04] MEDS: CYANOCOBALAMIN 1,000 MCG TABLET 1000 MCG PO (09:28)
[2024-08-04] MEDS: BUMETANIDE 1 MG TABLET PO (09:28)
[2024-08-04] MEDS: CHOLECALCIFEROL 1,000 UNITS TABLET 2000 UNITS PO (09:28)
[2024-08-04] MEDS: FERROUS SULFATE 325 MG TABLET DR 650 MG PO (09:28)
[2024-08-04] MEDS: allopurinoL 100 MG TABLET PO (09:28)
[2024-08-04] MEDS: ATORVASTATIN 10 MG TABLET PO (09:28)
[2024-08-04] MEDS: CALCIUM ACETATE 667 MG TABLET 1334 MG PO ×2 (09:28→11:56)
[2024-08-04 11:39] LABS: Glucose Point of Care 149 mg/dl (65-105)
--- NOTE | 2024-08-04 12:32 | P.PNNP_ITS ---
Progress Note: A&P Assessment and Plan (1) End-stage renal disease (ESRD): Code(s): N18.6 - End stage renal disease Status: Chronic Assessment and Plan: * HD yesterday * plan next HD treatment on Friday (due to holiday schedule) to resume // schedule * follow electrolytes, volume status, and clearance (2) Altered mental status: Qualifiers: Altered mental status type: disorientation Qualified Code(s): R41.0 - Disorientation, unspecified Code(s): R41.82 - Altered mental status, unspecified Status: Resolved Assessment and Plan: * resolved * as noted on presentation * no evidence of infection/sepsis... * however, mild lactic acidosis noted * imaging reviewed: * CT head: No significant abnormality seen. * CXR negative for PNA. viral PCR negative. * CT chest/abd/pelvis: small right pleural effusion, 3 cm indeterminate left renal mass, cholelithiasis, small amount of abdominopelvic ascites, umbilical hernia which contains a focal small bowel * questionable UTI by UA * elevated ammonia level noted * initiated on lactulose on admission * holding potential sedative medications (gabapentin and norco) * follow trend of mental status (3) Hypotension: Code(s): I95.9 - Hypotension, unspecified Status: Chronic Assessment and Plan: * chronic issue at baseline * on midodrine therapy * follow trend of hemodynamics (4) Anemia: Qualifiers: Anemia type: unspecified type Qualified Code(s): D64.9 - Anemia, unspecified Code(s): D64.9 - Anemia, unspecified Status: Chronic Assessment and Plan: * due to ESRD * hold Retacrit since Hgb > 10 * follow trend of H/H (5) Diabetes: Qualifiers: Chronic kidney disease stage: on chronic dialysis Diabetes mellitus complication detail: with chronic kidney disease Diabetes mellitus complication status: with kidney complications Diabetes mellitus chcf insulin use: w ithout chcf use Diabetes mellitus type: type 2 Qualified Code(s): E11.22 - Type 2 diabetes mellitus with diabetic chronic kidney disease; N18.6 - End stage renal disease; Z99.2 - Dependence on renal dialysis Code(s): E11.9 - Type 2 diabetes mellitus without complications Status: Chronic Assessment and Plan: * follow accu-cheks * glycemic control per hospitalists Not opposed to discharge from renal perspective if otherwise medically stable. Will continue to follow. Subjective Date/time seen: 08/04/24 12:32 Interval history: Follow-up for end stage renal disease on hemodialysis. Tolerated dialysis treatment yesterday without any issues or problems; s/p removal of tunneled HD catheter yesterday afternoon and tolerated this procedure as well; no apparent distress noted; mental status remains stable; no other events overnight or earlier this morning. Exam 2 Narrative: General: elderly male in NAD Heart: IRRR, normal S1 and S2; no rub Lungs: clear anteriorly; decreased at bases Abdomen: soft, nontender, nondistended, positive bowel sounds Extremities: no cyanosis or clubbing; trace - 1+ edema (chronic) Skin: no rash or nodules Objective Data Vital Signs Vital Signs: Vital Signs Temp Pulse Resp BP Pulse Ox O2 Del Method 08/04/24 08:33 66 18 08/04/24 08:33 66 18 96 Room Air 08/04/24 05:14 97.6 F 71 18 106/58 L 98 08/04/24 02:16 97.8 F 74 18 112/56 L 98 08/03/24 21:51 97.8 F 85 18 96/56 L 97 08/03/24 18:25 98.1 F 77 18 114/51 L 94 08/03/24 17:25 97.8 F 79 18 106/68 97 08/03/24 16:55 97.0 F L 72 16 92/62 L 99 08/03/24 16:40 96.6 F L 62 16 97/36 L 97 08/03/24 16:20 98.1 F 71 16 114/59 L 94 Room Air 08/03/24 16:10 66 16 100/56 L 99 Room Air 08/03/24 15:55 70 16 104/63 94 Room Air 08/03/24 15:40 68 16 119/60 99 Room Air Intake/Output Intake/Output: Intake & Output 08/01/24 08/02/24 08/03/24 08/04/24 23:59 23:59 23:59 23:59 Intake Total 1700 1340 490 275 Output Total 5 1293 1005 Balance 1695 47 -515 275 Meds/Results Medications: Active Medications Generic Name Dose Route Start Trade Name Freq PRN Reason Stop Acetaminophen 650 mg 07/21/24 12:38 Acetaminophen 325 Mg Tablet PO Q6H PRN Mild Pain (1-3) Or Fever Albuterol 2 puff 07/21/24 12:38 Albuterol Sulfate (*Sp) Aerosol 1 Puff INHALATION Q6HRT PRN sob/wheezing Allopurinol 100 mg 07/21/24 12:50 Allopurinol [address] [facility] Apixaban 2.5 mg 07/21/24 12:50 Apixaban 2.5 Mg Tablet PO Q12HR C[facility]AR Atorvastatin Calcium 10 mg 07/21/24 12:50 Atorvastatin 10 Mg Tablet PO DAILY CESAR Benzonatate 0 mg 07/21/24 12:40 Benzonatate 100 Mg Capsule PO TID PRN Cough Bumetanide 1 mg 07/21/24 17:00 Bumetanide 1 Mg Tablet PO BID CESAR Calcitriol 0.25 mcg 07/21/24 13:00 Calcitriol 0.25 Mcg Capsule PO [id number] [facility] Calcium Acetate 1,334 mg 07/21/24 12:00 Calcium Acetate 667 [address] Tablet PO TIDWM [facility] Cyanocobalamin 1,000 mcg 07/21/24 12:50 Cyanocobalamin 1,000 Mcg Tablet PO DAILY CESAR Dextrose 12.5 gm 07/21/24 08:12 Dextrose 50% 25 Gm/50 Ml Syringe IV PUSH PRN PRN Hypoglycemia Protocol Dextrose 12.5 gm 07/21/24 12:35 Dextrose 50% 25 Gm/50 Ml Syringe IV PUSH PRN PRN Hypoglycemia Protocol Ferrous Sulfate 650 mg 07/21/24 13:00 Ferrous Sulfate [address] PO Q48HR [facility] Glucagon 1 mg 07/21/24 12:35 Glucagon For Inj 1 Mg Vial IM PRN PRN Hypoglycemia Protocol Glucose 15 gm 07/21/24 12:35 Glucose Oral Gel 15 Gm Of Glucse In 37.5 Gm Tube PO PRN PRN Hypoglycemia Protocol Albumin Human 50 mls @ 999 mls/hr 07/21/24 08:43 Albutein IVPB 08/20/24 08:42 Q10M PRN HYPOTENSION Dextrose 1,000 mls @ 100 mls/hr 07/21/24 12:35 Dextrose 5% 1,000 Ml IVPB PRN PRN Hypoglycemia Protocol Insulin Aspart 4 - 8 units 07/28/24 08:00 Insulin Aspart (*Bkc) 100 Units/Ml SUB-Q ACINSULIN [facility] Protocol Lactulose 20 gm 07/21/24 18:00 Lactulose 20 Gm/[address] [facility] Midodrine 10 mg 07/21/24 12:43 Midodrine Hcl 10 Mg Tablet PO DAILY PRN Hypotension with dialysis Ondansetron HCl 4 mg 07/21/24 08:12 Ondansetron Inj 4 Mg/2 Ml Vial IV PUSH Q4H PRN Nausea Fluticasone/Salmeterol 2 puff 07/21/24 20:00 Fluticasone/Salmeterol 115-21 Mcg Inhaler [address] [facility] Tramadol HCl 50 mg 08/02/24 15:37 Tramadol Hcl (*Crx) 50 Mg Tablet PO Q8H PRN Pain Rated 4-6 Vitamin D 2,000 units 07/21/24 12:50 Cholecalciferol 1,[address] [facility] Radiology Results: ITS Impressions Chest/Abdomen/Pelvis CT 07/21/24 07:04 Impression: Small right pleural effusion. 3 cm indeterminate left renal mass. Further evaluation with ultrasound or pre and postcontrast CT/MR advised. Cholelithiasis. Small amount of abdominopelvic ascites. Umbilical hernia which contains a focal small bowel. Head CT 07/21/24 17:53 IMPRESSION: 1. 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 Arterial/Peripheral Duplex 07/21/24 19:22 IMPRESSION: 1. Pulsatile antegrade flow in the portal veins, likely secondary to congestive heart failure. Chest X-Ray 07/25/24 06:10 IMPRESSION: 1. Mild atelectasis in the lower lung zones. 2. Cardiomegaly. Abdomen X-Ray 07/26/24 17:36 IMPRESSION: NG tube, in good position. Modified Barium Swallow 07/27/24 08:21 IMPRESSION: 1. No laryngeal penetration or aspiration. 2. Please refer to the speech therapy report for recommendations. Labs Labs: Laboratory Tests 08/04/24 06:57 08/04/24 06:57 Calcium 8.5 Total Bilirubin 1.5 H AST 33 ALT 11 Alkaline Phosphatase 101 Total Protein 7.0 Albumin 3.4 L
--- NOTE | 2024-08-04 13:07 | P.DS_ITS ---
DS: Admitting Diagnosis Discharge Date 08/04/24 Admitting Diagnosis Altered Mental Status DS: Discharge Diagnosis Discharge Diagnosis (1) Altered mental status: Qualifiers: Altered mental status type: disorientation Qualified Code(s): R41.0 - Disorientation, unspecified Code(s): R41.82 - Altered mental status, unspecified Status: Resolved (2) Increased ammonia level: Code(s): R79.89 - Other specified abnormal findings of blood chemistry Status: Acute (3) Dysphagia: Code(s): R13.10 - Dysphagia, unspecified Status: Acute (4) Acute on chronic diastolic CHF (congestive heart failure): Code(s): I50.33 - Acute on chronic diastolic (congestive) heart failure Status: Acute (5) ESRD (end stage renal disease) on dialysis: Code(s): N18.6 - End stage renal disease; Z99.2 - Dependence on renal dialysis Status: Acute (6) Diabetes: Qualifiers: Diabetes mellitus type: type 2 Diabetes mellitus [facility] insulin use: without [facility] use Diabetes mellitus complication status: with kidney complications Diabetes mellitus complication detail: with chronic kidney disease Chronic kidney disease stage: on chronic dialysis Qualified Code(s): E11.22 - Type 2 diabetes mellitus with diabetic chronic kidney disease; N18.6 - End stage renal disease; Z99.2 - Dependence on renal dialysis Code(s): E11.9 - Type 2 diabetes mellitus without complications Status: Chronic DS: Summary Hospital Course Reason for hospitalization: 84yo male with ESRD on HD, CHF, AFib, DM, pHTN and HTN here for altered mental status. Please see H&P for details. Hospital Course: Patient presented with AMS. He did not meet SIRS criteria but lactic elevated to 2.5. CT head showing no significant abnormalities. Can not obtain MRI brain but repeat CT brain showing no acute findings. CXR showing central congestive changes and pulmonary edema. Viral PCR negative. UCx negative. BCx negative. CT chest/abd/pelvis showing small right pleural effusion, 3cm indeterminate left renal mass, cholelithiasis, small amount of abdominopelvic ascites and umbilical hernia which contains a focal small bowel (easily reducible). Ammonia 122. ABG 7.48/31/69 on RA. TSH, folate and B12 normal. Troponin negative x3. Suspect AMS secondary to elevated ammonia levels. Total bilirubin 3.3 but LFTs otherwise normal. DBili 1.1. Tbili trended down. TBili has been elevated in the past. No history of cirrhosis or ETOH abuse. US retroperitoneal duplex showing pulsatile antegrade flow in the portal veins 2nd to CHF. CT showing a small amount of abdominal and pelvic ascites but no abnormalities seen of the liver. Echo showing normal LV with hyperdynamic systolic fxn EF >70%, severely dilated RV with reduced systolic fxn, RV pressure overload significantly elevated RAP. Biatrial enlargement. There is a small mobile echodensity in the RA possibly an eustachian valve. (BCx negative). NGT placed and started on lactulose t.i.d. Patient's mental status improved with treatment. Etiology of elevated ammonia level unclear. Mental status improved but had persistent dysphagia so we continued tube feeding. Mental status did eventually improve, he had repeat speech evaluation (MBS) showing patient was safe for oral intake at this time. NGT removed and he was started on oral diet. He worked with PT/OT/ST. Also with acute on chronic diastolic CHF. CXR showing central congestive change and probable mild bibasilar pulmonary edema, discoid left mid lung atelectasis. BNP > 30,000. Echo as above with right sided failure. Currently on Bumex at home which was continued. Patient with ESRD. Nephrology consulted for inpatient dialysis; appreciate their input. We continued midodrine prn. Fluid management with dialysis. His fistula has matured. General Surgery consulted and the patient had his tunneled dialysis cathater removed on 08/03. He overall did well and was able to be discharged on 08/04/24. Status at Discharge Cognitive/behavioral status at discharge: stable Time Spent with Patient Time attestation: Total time spent providing and/or coordinating discharge services: 35 minutes Time spent: Greater than 30 minutes Exam Narrative: AF 97.6 106/58 66 18 96% ra Gen - NARD Chest - CTA bilaterally. Right upper chest dressing intact CV - RRR S1/S2 Abd - Soft, obese, NT Ext - trace-1+ pedal edema. LUE fistula thrill and bruit Neuro - alert and appropriate Skin - Warm and dry DS: Data Data Completed and Pending Labs on day of discharge: Labs from last 24 hours 08/04/24 08/04/24 08/04/24 11:32 07:50 06:57 WBC 4.4 L RBC 3.50 L Hgb 11.3 L Hct 36.0 L MCV 102.9 H MCH 32.3 MCHC 31.4 L RDW 16.6 H Plt Count 86 L MPV 12.3 H Immature Gran % (Auto) 0.2 Neut % (Auto) 61.0 Lymph % (Auto) 18.5 Alger % (Auto) 18.7 H Eos % (Auto) 0.7 Baso % (Auto) 0.9 Lymph # (Auto) 0.82 L [place] # (Auto) 0.8 H Eos # (Auto) 0.0 Baso # (Auto) 0.0 Abs Immat Gran (auto) 0.01 Absolute Neuts (auto) 2.7 Absolute Nucleated RBC 0.000 Nucleated RBC % 0.0 % Immature Plt Fraction 6.6 Sodium 137 Potassium 4.0 Chloride 100 Carbon Dioxide 34 H Anion Gap 3 L BUN 28 H D Creatinine 4.50 H Estim Creat Clear Calc 14 Estimated GFR 15 L Glucose 136 H POC Capillary Glucose 149 H 142 H Calcium 8.5 Total Bilirubin 1.5 H AST 33 ALT 11 Alkaline Phosphatase 101 Total Protein 7.0 Albumin 3.4 L 08/03/24 08/03/24 08/03/24 20:18 17:06 15:56 WBC RBC Hgb Hct MCV MCH MCHC RDW Plt Count MPV Immature Gran % (Auto) Neut % (Auto) Lymph % (Auto) Alger % (Auto) Eos % (Auto) Baso % (Auto) Lymph # (Auto) [place] # (Auto) Eos # (Auto) Baso # (Auto) Abs Immat Gran (auto) Absolute Neuts (auto) Absolute Nucleated RBC Nucleated RBC % % Immature Plt Fraction Sodium Potassium Chloride Carbon Dioxide Anion Gap BUN Creatinine Estim Creat Clear Calc Estimated GFR Glucose POC Capillary Glucose 180 H 132 H 124 H Calcium Total Bilirubin AST ALT Alkaline Phosphatase Total Protein Albumin Discharge Plan Discharge Attending physician on discharge: Sanjay Schneider Consulting providers: Brittany Johnson Discharging Clinician: Sanjay Schneider Anticipated Discharge Date/Time: 08/04/24 13:18 Patient Disposition: SNF Activity: as tolerated Diet: heart healthy and renal Discharge Instructions: Please check glucose before meals and before bed. Record for the doctor's review. Check blood pressure 1 to 2 times a day. Record for the doctor's review. Take precautions to avoid falls. Rise slowly from a lying or sitting position. Pause before standing or walking. Contineu hemodialysis per his routine schedule Contact the doctor if the patient has confusion or other worrisome symptoms. Avoid NSAIDs (ibuprofen, naproxen, Aleve). Tylenol is safe to take. Follow-up with the provider at the facility. Follow-up with Engineering Secretary per prior schedule Thank you for using [facility] for your health care needs. Patient Instructions: Apixaban (By mouth), Heart Failure (ED) Patient Language: Bur[place]ian Stand Alone Forms: General Discharge Information, Longterm Discharge Follow-up/Referrals: Ramez Ching MD [Primary Care Provider] - 1 Week Brittany Johnson MD [Physician] - Keep Reg. Scheduled Appt. Discharge Medications: New lactulose 20 gram/30 mL Solution 20 g PO BID Qty: 300 0RF Rx Instructions: titrate dose to have at least 2 bm per day Continued cholecalciferol (vitamin D3) 50 mcg (2,000 unit) capsule 50 mcg PO DAILY cyanocobalamin (vitamin B-12) 1,000 mcg Capsule 1,000 mcg PO DAILY midodrine 10 mg Tablet 10 mg PO WITH DIALYSIS PRN (Reason: hypotension with dialysis) Qty: 12 0RF calcium acetate(phosphat bind) 667 mg tablet 1,334 mg PO TIDWM albuterol sulfate 90 mcg/actuation HFA aerosol inhaler 2 puff inhalation Q6H PRN (Reason: sob/wheezing) liraglutide [Victoza 2-Vidal] 0.6 mg/0.1 mL (18 mg/3 mL) pen injector 1.2 mg subcut DAILY acetaminophen 325 mg Tablet 650 mg PO Q6H PRN (Reason: Mild Pain (1-3) Or Fever) Qty: 30 0RF fluticasone propion-salmeterol [Advair Diskus] 250-50 mcg/dose blister with device 1 inh inhalation Q12H fluticasone propion-salmeterol [Advair Diskus] 250-50 mcg/dose blister with device 1 inh inhalation Q12H calcitriol 0.25 mcg capsule 0.25 mcg PO 4XW Qty: 48 4RF Rx Instructions: Take on Mondays, Wednesdays, Fridays, and Sundays ferrous sulfate [FeroSul] 325 mg (65 mg iron) tablet 650 mg PO EVERY OTHER DAY Qty: 90 1RF atorvastatin 10 mg tablet 10 mg PO DAILY Qty: 90 2RF Eliquis 2.5 mg tablet 2.5 mg PO Q12HR Qty: 180 1RF allopurinol 100 mg tablet 100 mg PO DAILY Qty: 90 3RF bumetanide 1 mg tablet 1 mg PO BID Qty: 60 5RF benzonatate 100 mg capsule See Rx Instructions .ROUTE .COMPLEX Qty: 60 0RF Dose Instruction: TAKE 1 TO 2 CAPSULES BY MOUTH THREE TIMES DAILY NEEDED FOR COUGH . DO NOT EXCEED 6 PER 24 HOURS Rx Instructions: TAKE 1 TO 2 CAPSULES BY MOUTH THREE TIMES DAILY NEEDED FOR COUGH . DO NOT EXCEED 6 PER 24 HOURS Discontinued gabapentin 300 mg capsule 300 mg PO HS hydrocodone-acetaminophen 5-325 mg tablet 1 tablet PO Q8H PRN (Reason: pain) Qty: 10 0RF Date of admission: 07/21/24 08:12 Primary Care Provider: Ramez Ching Admitting Provider: Sanjay Schneider Attending physician on admission: Sanjay Schneider Condition: Stable Hospitalist MIPS Heart Failure (Exclusion) Patient has history of Heart Transplant or Left Ventricular Assistive Device?: No IF YES, STOP HERE Heart Failure (Qualifier) Patient has current or prior documentation of LVEF less than or equal to 40%, or mod/servere depressed LVSF?: No IF NO, STOP HERE
--- NOTE | 2024-08-04 13:32 | PC.NURSE ---
Attempted to call report to [facility] at 1328. No answer, left VM. EMS to get pt for transport at 1400. Will try again.
--- NOTE | 2024-08-11 08:20 | P.PNAN_ITS ---
Anes - Initial Pre Proc Eval Procedure: Operation Date: 08/03/24 14:00 Proposed Procedures p Removal Tunnel Dialysis Catheter - Mat Green MD Date/Time: 08/11/24 08:20 Surgeon: Tomas Schneider MD Pre Op Diagnosis: Altered Mental Status, ESRD, Encephalopathy Patient Data Age: 84 Gender: M Height: 1.78 m Weight: 104.2 kg Last Vital Signs Temp 97.6 F 08/04/24 05:14 Pulse 66 08/04/24 08:33 Resp 18 08/04/24 08:33 BP 106/58 L 08/04/24 05:14 Pulse Ox 96 08/04/24 08:33 O2 Del Method Room Air 08/04/24 08:33 O2 Flow Rate 6 08/03/24 15:27 FiO2 21 08/02/24 20:55 Allergies Allergy/AdvReac Type Severity Reaction Status Date / Time No Known Allergies Allergy Verified 08/03/24 13:24 Home Medications ?Medication ?Instructions ?Recorded ?Confirmed ?Type cholecalciferol (vitamin D3) 50 50 mcg PO DAILY 12/26/22 07/21/24 History mcg (2,000 unit) capsule cyanocobalamin (vitamin B-12) 1,000 mcg PO DAILY 11/03/23 07/21/24 History 1,000 mcg capsule calcitriol 0.25 mcg capsule 0.25 mcg PO 4XW #48 caps 11/19/23 07/21/24 Rx midodrine 10 mg tablet 10 mg PO WITH DIALYSIS PRN 12/30/23 07/21/24 Rx hypotension with dialysis #12 tabs ferrous sulfate 325 mg (65 mg 650 mg (2 x 325 mg (65 mg iron)) 01/31/24 07/21/24 Rx iron) tablet (FeroSul) PO EVERY OTHER DAY #90 tabs atorvastatin 10 mg tablet 10 mg PO DAILY #90 tabs 02/23/24 07/21/24 Rx apixaban 2.5 mg tablet (Eliquis) 2.5 mg PO Q12HR #180 tabs 03/12/24 07/21/24 Rx allopurinol 100 mg tablet 100 mg PO DAILY #90 tabs 03/31/24 07/21/24 Rx bumetanide 1 mg tablet 1 mg PO BID #60 tabs 06/16/24 07/21/24 Rx benzonatate 100 mg capsule See Rx Instructions .Route 07/05/24 07/21/24 Rx .COMPLEX #60 caps albuterol sulfate 90 mcg/actuation 2 puff inhalation Q6H PRN 07/12/24 07/21/24 History aerosol inhaler sob/wheezing calcium acetate(phosphat bind) 667 1,334 mg PO TIDWM 07/12/24 07/21/24 History mg tablet liraglutide 0.6 mg/0.1 mL (18 mg/3 1.2 mg subcut DAILY 07/12/24 07/21/24 History mL) subcutaneous pen injector (Victoza 2-Vidal) acetaminophen 325 mg tablet 650 mg (2 x 325 mg) PO Q6H PRN 07/17/24 07/21/24 Rx Mild Pain (1-3) Or Fever #30 tabs fluticasone 250 mcg-salmeterol 50 1 inh inhalation Q12H 07/21/24 07/21/24 History mcg/dose blistr powdr for inhalation (Advair Diskus) fluticasone 250 mcg-salmeterol 50 1 inh inhalation Q12H 07/21/24 07/21/24 History mcg/dose blistr powdr for inhalation (Advair Diskus) lactulose 20 gram/30 mL oral 20 g (30 mL) PO BID #300 mL 07/30/24 Rx solution Patient hx anesthesia problems: none Family hx anesthesia problems: none Results Review: All pre-operative results and documents have been reviewed as part of the pre- operative evaluation. [facility], [facility] Past Medical History Medical History Gout Sleep apnea intolerant of CPAP End-stage renal disease on hemodialysis Chronic anemia Benign prostatic hyperplasia Pulmonary hypertension Anemia of chronic disease Chronic anticoagulation Umbilical hernia Iron deficiency anemia B12 deficiency anemia Congestive heart failure Echocardiogram October 2020: Indeterminate diastolic function, EF 65-70%, mild right ventricular enlargement, mildly increased left ventricular wall thickness, mild left atrial enlargement, mild mitral valve regurgitation, mild tricuspid valve regurgitation, moderate pulmonary hypertension with RVSP 59, moderate pulmonic valve regurgitation Atrial fibrillation Essential (primary) hypertension Mixed hyperlipidemia Type 2 diabetes mellitus with diabetic neuropathy Surgical History Surgical History Status post insertion of spinal cord stimulator History of cataract extraction with lens replacement History of bilateral knee arthroplasty Normal colonoscopy (~2007) Family History Family History Father Cerebrovascular accident Mother Hypertension Sibling Hypertension Other Kidney disease, chronic, end stage on dialysis Social History Social History Social History: Surrogate medical decision maker: Kathy Yanez, spouse. Code status: Full code. Smoking packs per day: 0.5 Smoking cigarettes per day: 10.0 Years smoked: 2.5 Smoking pack-years: 1.25 Smoking status: Former smoker Second hand tobacco smoke exposure: Yes Alcohol intake: unknown Substance use: unknown Substance use type: unknown Do You Feel Safe in your Home?: Yes Lack of Transportation: No Lack of Food: Never True Current Housing: I Have Housing Concerned About Future Housing: No Difficulty Paying Gas/Electric Bills: No Difficulty Paying for Meds: No Currently Unemployed: No Education: Bachelor's Degree Difficulty w/ Childcare or Family Care: No Living arrangements: with family Additional living arrangements comments: Lives with spouse of nearly 60 years. They have a son and daughter. 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 Spiritual care concerns: No Comments For case performed on 08/03/24. Anes - Eval Final PreProcedure Day of Procedure 08/11/24 08:20 Patient weight: obese Heart: irregular rhythm (a fib) Lungs: clear to auscultation Airway: Mallampati scale class III Neurological: alert and oriented Last oral intake: >/= 8 hours ASA classification: IV Emergent: no Anesthetic plan: proceed Anesthesia type and monitoring: general GIVS Results Review: All pre-operative results and documents have been reviewed as part of the pre- operative evaluation. Informed Consent: The patient's anesthetic plan and its attendant risks and benefits were discussed with the patient/family/POA. Questions were solicited and answers provided to the satisfaction of the patient/family/POA.
== END 2024-08-04 15:20 | DRG 291 ==
LOC: ANHED 07:57 → ANH3MEDSUR 09:02 → ANHIMU 17:50 → ANH3MEDSUR 07-23 20:58
PROVIDERS: Emergency Medicine; Internal Medicine Nephrology; Student in an Organized Health Care Education/Training Program; Surgery; Admitting Provider Internal Medicine; Emergency Provider Family Medicine; PCP Family Medicine; Visit Provider Internal Medicine
PROC: 0JPT0XZ Removal of Tunneled Vascular Access Device from Trunk Subcutaneous Tissue and Fascia, Open Approach (ICD-10-PCS; CPT 49422; principal; 2024-08-03 14:00)
DX: I13.2 Hypertensive heart and chronic kidney disease with heart failure and with stage 5 chronic kidney disease, or end stage renal disease (principal); I50.33 Acute on chronic diastolic (congestive) heart failure; N18.6 End stage renal disease; G93.40 Encephalopathy, unspecified; D63.1 Anemia in chronic kidney disease; D50.9 Iron deficiency anemia, unspecified; D51.9 Vitamin B12 deficiency anemia, unspecified; D69.6 Thrombocytopenia, unspecified; E11.22 Type 2 diabetes mellitus with diabetic chronic kidney disease; E11.42 Type 2 diabetes mellitus with diabetic polyneuropathy; E78.5 Hyperlipidemia, unspecified; E87.5 Hyperkalemia; G47.30 Sleep apnea, unspecified; I27.20 Pulmonary hypertension, unspecified; I95.9 Hypotension, unspecified; I48.91 Unspecified atrial fibrillation; M10.9 Gout, unspecified; N40.0 Benign prostatic hyperplasia without lower urinary tract symptoms; N28.89 Other specified disorders of kidney and ureter; R79.89 Other specified abnormal findings of blood chemistry; R13.10 Dysphagia, unspecified; Z79.01 Long term (current) use of anticoagulants; Z20.822 Contact with and (suspected) exposure to COVID-19; Z99.2 Dependence on renal dialysis; Z96.653 Presence of artificial knee joint, bilateral; Z87.891 Personal history of nicotine dependence; Z86.73 Personal history of transient ischemic attack (TIA), and cerebral infarction without residual deficits
CPT/HCPCS: 36415; 36600; 70450; 71045; 71250; 74176; 80048; 80053; 80069; 81001; 82140; 82248; 82607; 82746; 82805; 82948; 83605; 83690; 83735; 83880; 84100; 84145; 84443; 84484; 85018; 85025; 85027; 85055; 85610; 85730; 87040; 87086; 87637; 87641; 92610; 92611; 93005; 93306; 93976; 94640; 96374; 96375; 97110; 97161; 97166; 97530; 97535; 99285; A9270; G0257; J0690; J0696; J1644; J1815; J2003; J2004; J2310; J2704; J7030; J7040

== ENCOUNTER 2024-09-24 10:04 | Inpatient (IN) | payer MEDICARE, SELFPAY ==
[2024-09-24] VITALS (22 sets, daily range): BP systolic 84–161; BP diastolic 47–113; PULSE 53–74; RESP 12–20; TEMP 36.4–36.9; O2SAT 91–100; BMI 30.8
--- NOTE | ~2024-09-24 | US_ITS ---
EXAMINATION: US venous doppler [facility] DATE: 09/26/2024 14:46 INDICATION: Edema TECHNIQUE: Grayscale ultrasound images without and with compression and Doppler ultrasound images of the bilateral lower extremity veins were obtained. COMPARISON: None. FINDINGS: The visualized portions of right common femoral vein, profunda (deep) femoral vein, femoral vein, pop liteal vein, peroneal veins, posterior tibial veins, and greater saphenous vein outflow are patent. The visualized portions of left common femoral vein, profunda femoral vein, femoral vein, popliteal v ein, peroneal veins, posterior tibial veins, and greater saphenous vein outflow are patent. IMPRESSION: 1. No deep venous thrombosis within the bilateral lower extremities. Reviewed, dictated and finalized at location A. R
--- NOTE | ~2024-09-24 | XR_ITS ---
EXAMINATION: XR chest 1V portable DATE: 09/24/2024 14:09 INDICATION: Weakness. TECHNIQUE: A single frontal view of the chest was obtained. COMPARISON: Chest single view 07/25/2024, chest CT 07/21/24 FINDINGS: There are mild airspace opacities in the mid and lower lung zones. There is a small right p leural effusion. No pneumothorax. Cardiomegaly is noted. Epidural electrodes are noted. IMPRESSION: 1. Stable mild airspace opacities in the mid and lower lung zones, likely atelectasis. 2. Small right pleural effusion. 3. Cardiomegaly. Reviewed, dictated and finalized at location A. STAND LOADER IMPRESSION: 1. Stable mild airspace opacities in the mid and lower lung zones, likely atele ctasis. 2. Small right pleural effusion. 3. Cardiomegaly.
--- NOTE | ~2024-09-24 | US_ITS ---
EXAMINATION: US arterial duplex LE DATE: 09/26/2024 15:05 INDICATION: Cold extremities. Arterial disease suspected clinically. TECHNIQUE: Sonographic evaluation of the arterial system of the bilateral lower extremities was perfo rmed assessing grayscale appearance and color Doppler flow. COMPARISON: None. FINDINGS: Peak systolic velocity (cm/sec) ; waveform Right lower extremity External iliac artery: 42.1; triphasic Common femoral artery: 75.1; triphasic Profunda femoral artery: 68.4; triphasic Superficial femoral artery: 71; triphasic Popliteal artery: 44; triphasic Anterior tibial artery: 59; biphasic Posterior tibial artery: 63; triphasic Peroneal artery: 56; triphasic Dorsalis pedis: 93; biphasic Peak systolic velocity (cm/sec) ; waveform Left lower extremity External iliac artery: 103; triphasic Common femoral artery: 129; triphasic Profunda femoral artery: Not visualized on the submitted images Superficial femoral artery: 103; biphasic Popliteal artery: 63; biphasic Anterior tibial artery: 83; biphasic Posterior tibial artery: 68; biphasic Peroneal artery: 63; biphasic Dorsalis pedis: 98; not visualized on the submitted images IMPRESSION: No hemodynamically significant stenosis detected bilaterally, as detailed above. Reviewed, dictated and finalized at location A. OR PRODUCT DEVELOPMENT SCIENTIST IMPRESSION: No hemodynamically significant stenosis detected bilaterally, as detailed above .
--- OUTSIDE RECORDS SUMMARY | 2024-09-24 10:43 | XMS_ITS | Encounter Summary ---
Author Organization [facility] Healthcare Address [address] [place] [address] Care Team Providers Care Senior Research Executive Name Role Phone Ramez Ching MD Primary Care Provider Brittany Johnson MD Unavailable [phone] Encounter Details Date Type Department Care Team (Late st Contact Info) Description 04/07/2024 Telephone [facility] at [facility] [address] [place], [place] [id number] Chintan Yousif MD [address] [place] [address] [address] [place] [address] Social History Tobacco Use Types Packs/Day Years Used Date Smoking Tobacco: Former Smokeless Tobacco: Never Comments:Pt. does not smoke AUDIT-C Answer Date Recorded Q1: How often do you have a drink containing alcohol? Never 04/06/2024 Q2: How many drinks containi ng alcohol do you have on a typical day when you are drinking? Patient does not drink Q3: How often do you have si x or more drinks on one occasion? 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
--- OUTSIDE RECORDS SUMMARY | 2024-09-24 10:43 | XMS_ITS | Clinical Summary ---
Author Organization [facility] [address] Address [address] [place] [address] Care Team Providers Care Display Designer Outside Name Role Phone Ramez Ching MD Primary Care Provider Brittany Johnson MD Unavailable [phone] Allergies No known active allergies Medications atorvastatin (LIPITOR) 10 mg tablet Take 1 tablet (10 mg total) by mouth daily 0 Active traMADoL (ULTRAM) 50 mg tablet Take 1 tablet (50 mg total) by mouth every 8 (eight) hours as needed for pain 1 Active Victoza 3-Vidal 0.6 mg/0.1 mL (18 mg/3 mL) injection Inject 1.2 mg under the skin daily 1 Active albuterol HFA (PROVENTIL HFA,VENTOLIN HFA,PROAIR HFA) 90 mcg/actuation inhaler Inhale 2 puffs every 6 (six) hours as needed for wheezing or shortness of breath 1 Active FeroSuL 325 mg (65 mg iron) tablet Take 2 tablets (650 mg total) by mouth every other day 1 Active magnesium oxide (MAG-OX) 400 mg (241.3 mg elemental magnesium) tablet 1 Active potassium chloride ER 20 mEq CR tablet 1 tablet (20 mEq total) daily 1 Active cyanocobalamin (Vitamin B-12) 500 mcg tabletIndication s:Prevention of Vitamin B12 Deficiency Take 1 tablet (500 mcg total) by mouth daily Active bumetanide (BUMEX) 1 mg tabletIndication s:Peripheral Edema due to Chronic Heart Failure Take 2 tablets (2 mg total) by mouth 2 (two) times a day Taking 3 tabs in morning and 2 tabs in afternoon. Active cholecalciferol (VITAMIN D-3) 5,000 unit capsule Take 1 capsule (5,000 Units total) by mouth daily Active gabapentin (NEURONTIN) 300 mg capsule Take 1 capsule (300 mg total) by mouth nightly Active metOLazone (ZAROXOLYN) 5 mg tabletIndication s:Acute on chronic diastolic congestive heart failure (CMS/HCC) ([facility]) Take 1 tablet (5 mg total) by mouth once for 1 dose Take 30 minutes before morning bumetanide. Take with one potassium pill. 1 tablet 3 Active Additional Information Patient not taking.Informant: Self, Reported on 04/06/2024 Eliquis 2.5 mg tablet Take 1 tablet (2.5 mg total) by mouth every 12 (twelve) hours 3 Active midodrine (PROAMATINE) 2.5 mg tablet Take 2 tablets (5 mg total) by mouth as needed Only on dialysis day 3 Active carvediloL (COREG) 6.25 mg tabletIndication s:Longstanding persistent atrial fibrillation (CMS/HCC) ([facility]),Hypertensi on associated with diabetes ([facility]) Take 1 tablet (6.25 mg total) by mouth 2 (two) times a day with meals 180 tablet 3 4 Active allopurinoL (ZYLOPRIM) 100 mg tablet Take 1 tablet (100 mg total) by mouth daily Active benzonatate (TESSALON) 100 mg capsule Take 1 capsule (100 mg total) by mouth as needed for cough 4 Active calcitRIOL (ROCALTROL) 0.25 mcg capsule Take 1 capsule (0.25 mcg total) by mouth every other day Gets at dialysis Active calcium acetate,phosphat bind, (PHOSLO) 667 mg tablet Take 1 tablet (667 mg total) by mouth 3 (three) times a day with meals 4 Active clindamycin (CLEOCIN) 300 mg capsule 1 capsule (300 mg total) 4 (four) times a day 4 Active Active Problems Problem Noted Date Diagnosed Date ESRD (end stage renal disease) on dialysis 03/23 Assessment & Plan (05/18/2024 8:37 AM CDT): Impression: Patient is being dialyzed through a right IJ Perma catheter without any complications. Patient is status post left brachial axillary AV graft with a healing superficial dehiscence to the left antecubital fossa. No surrounding erythema or drainage is noted. Plan: Recommend continue daily dressing changes with triple antibiotic ointment and Band-Aid. -continue utilizing Perma catheter for dialysis as per Nephrology. -patient to follow up in 1 week for re-evaluation with an AV duplex. Encouraged patient make a sooner appointment or present to the emergency department for any concerns. Assessment & Plan (05/12/2024 9:21 AM CDT): Incision to the left antecubital is mostly healed. He does have a small superficial dehiscence to the lateral end. Good bruit and thrill noted throughout the graft. Retained suture also noted and was removed in the office. Plan: Continue daily dressing changes with triple antibiotic ointment and a bandage Tubigrip for support. Follow-up in 1 week. Will also call on for an over the phone check. Assessment & Plan (03/23/2024 2:34 PM CDT): Patient has been utilizing a right IJ Perma catheter since 2022 for dialysis was told this week that he is not a transplant candidate and has been referred by Dr. Paez undergo his skin piler to discuss permanent access creation. Fistula versus graft creation procedures were discussed with the patient as he is a candidate for graft versus fistula to the left upper extremity he is right arm dominant. Discussed potential risks of the procedures and hemodialysis with the patient and answered all questions to their satisfaction. He is agreeable wishes to proceed. Will obtain cardiac clearance before scheduling him for a left upper extremity fistula versus graft creation. Pulmonary hypertension 12/10/2022 SOB (shortness of breath) 10/10/2022 Hyperlipidemia associated with type 2 diabetes m ellitus 11/09/2021 Assessment & Plan (05/18/2024 8:34 AM CDT): Impression: Chronic and controlled. Plan: Continue atorvastatin. Assessment & Plan (05/12/2024 9:18 AM CDT): Controlled continue Lipit Assessment & Plan (03/23/2024 2:32 PM CDT): Continue statin therapy along with following a diabetic diet and insulin Hypertension associated with diabetes 11/09/2021 Assessment & Plan (05/18/2024 8:34 AM CDT): Impression: Chronic and controlled. Plan: Continue carvedilol Assessment & Plan (05/12/2024 9:18 AM CDT): Controlled, continue carvedilol Assessment & Plan (03/23/2024 2:32 PM CDT): Continue antihypertensives Left arm swelling 08/13/2021 Longstanding persistent atrial fibrillation (CMS /HCC) 10/26/2020 Chronic anticoagulation 10/26/2020 Chronic kidney disease 10/26/2020 Encounters Date Type Department Care Team Description 08/26/2024 Telephone [facility] [address] [place] [address] Anil Medina MD 07/26/2024 Orders Only [facility] [address] [place] [address] Lluvia Fowler NP from Last 3 Months Surgical History Surgery Date Site/Laterality Comments CENTRAL VENOUS CATHETER INSERTION 06/04/2023 - 07/03/2023 right neck- perma cath JOINT REPLACEMENT Bilateral BL knees SPINAL CORD STIMULATOR IMPLANT 5 years ago-lower left hip CATARACT EXTRACTION Bilateral COLONOSCOPY TUNNELED VENOUS CATHETER PLACEMENT 06/04/2023 - 07/03/2023 Right RIJ leilaacath [facility] DIALYSIS FISTULA CREATION 04/13/2024 Left LUE brachial axillary AVG creation - Dr. Chintan Yousif Medical History Medical History Date Comments CHF (congestive heart failur e) (CMS/HCC) (HCC) Atrial fibrillation (CMS/HCC) (HCC) Hypertension per patient late ly his BP runs low Hyperlipidemia Diabetes mellitus (HCC) SOB (shortness of breath) Gout Type 2 diabetes mellitus (HCC) Dialysis patient ([facility]) [id number] Neuropathy (CMS/HCC) History of blood transfusion yea rs ago Uses walker Status post insertion of spi nal cord stimulator Permanent central venous catheter in place RIJ ESRD (end stage renal diseas e) on dialysis ([facility]) Social History Tobacco Use Types Packs/Day Years Used Date Smoking Tobacco: Former Smokeless Tobacco: Never Tobacco Cessation:Counseling Given: Not Answered Comments:Pt. does not smoke AUDIT-C Answer Date Recorded Q1: How often do you have a drink containing alcohol? Never 04/13/2024 Q2: How many drinks containi ng alcohol do you have on a typical day when you are drinking? Patient does not drink Q3: How often do you have si x or more drinks on one occasion? Never 04/13/2024 Personal Safety Answer Date Recorded Have you ever been in or are you currently in a harmful physical or emotional relationship or is someone making you feel afraid or unsafe? Denies 04/13/2024 Sex and Gender Information Value Date Recorded Sex Assigned at Not on file Legal Sex Male 12:47 AM LANGUAGE TRANSLATOR Gender Identity Not on file Sexual Orientation Not on file Obstetrics History Last Filed Vital Signs Vital Sign Reading Time Taken Comments Blood Pressure 97/54 05/11/2024 1:05 PM CDT Pulse 54 05/11/2024 1:05 PM CDT Temperature 36.6 C (97.9 F) 05/11/2024 1:05 PM CDT Respiratory Rate 18 04/13/2024 11:45 AM CDT Oxygen Saturation 97% 05/11/2024 1:05 PM CDT Inhaled Oxygen Concentration - - Weight 95.3 kg (210 lb) 05/11/2024 1:05 PM CDT Height 175.3 cm (5' 9 ) 05/11/2024 1:05 PM CDT Body Mass Index 31.01 05/11/2024 1:05 PM CDT Plan of Treatment Health Maintenance Due Date Last Done Comments Albumin Creatinine Ratio, Urine 1941 Depression Screening 1941 Hemoglobin A1C 1941 Dilated Eye Exam 1941 Foot Exam 1941 Lipid Panel 1941 DTaP/Tdap/Td Vaccine (1 - Tdap) 02/15/1952 Hepatitis B Screening 1959 Pneumococcal vaccine 65+ (1 of 2 - PCV) 02/15/1960 Zoster Vaccine (1 of 2) 1991 Well Visit 65+ 2006 Influenza Vaccine (#1) 2024 , 06/06/2017, 05/19/2013 Fall Risk Assessment 04/13/2025 04/13/2024 eGFR 04/13/2025 04/13/2024, 05/16/2022 Medical Devices Implanted Type Area Engine Tester Device Identifier Shelf Expiration Date Model / Serial / Lot [employer]l [employer] 4-7mm 45cm Stretch Peripheral Standard Storyboard Artist Graft Vascular [id number] - [id number] - [id number] Implanted:Qty: 1 on 04/13/2024 by Chintan Yousif MD at [facility] Graft Left: Arm Wl [employer] [id number] 09/01/2028 [id number] / [id number] / Spinal Cord Stomulater Left: Hip Joint Replacement Bilatera l: Knee Perma Cath Right: Neck Lens Bilatera l: Eye Procedures Procedure Name Priority Date/Time Associated Diagnosis Comments CARDIOLOGY DOCUMENT SCAN Routine 07/13/2024 1:40 PM LANGUAGE TRANSLATOR EGFR STAT 04/13/2024 6:07 AM CDT from Last 3 Months or Most Recently Relevant to Health Maintenance Results * Cardiology Document Scan (07/13/2024 1:40 PM LANGUAGE TRANSLATOR) Anatomical Region Laterality Modality Other Lluvia Fowler NP CV CARDIAC SERVICES PROCEDUR ES Final Result * (ABNORMAL) eGFR (04/13/2024 6:07 AM CDT) eGFR 9(L) >=60 mL/min/1. 73 m2 Comment: Interpretive Data Reference Interval Normal >/= 90 mL/min/1.73m2 Mildly decreased* 60 - 89 mL/min/1.73m2 Mildly to moderately decreased 45 - 59 mL/min/1.73m2 Moderately to severely decreased 30 - 44 mL/min/1.73m2 Severely decreased 15 - 29 mL/min/1.73m2 Kidney Failure < 15 mL/min/1.73m2 *Relative to young adult level Estimated glomerular filtration rate is determined by the 2020 CKD-EPI equation recommended by the National Kidney Foundation (A Unifying Approach to GFR Estimation: Recommendations of the NKF-ASK Task Force on Reassessing the Inclusion of Race in Diagnosing Kidney Disease, JASN 2020). The CKD-EPI equation should not be used for patients with unstable renal function and has not been validated in children and those over 70. Current interpretive data was last reviewed 2021. Blood 04/13/2024 6:07 AM CDT 04/13/2024 6:12 AM CDT us Chintan Yousif MD LAB BLOOD ORDERABLES Final Resul t [facility] [address] [facility] Department [place] [address] from Last 3 Months or Most Recently Relevant to Health [place] [id number] [place] [id number] MEDICARE SOLUTIONS Care Teams Display Designer Outside Relationship Specialty Start Date End Date Ramez Ching MD [address] [place] [address] PCP - General Family Medicine 10/08/20 Brittany Johnson MD [address] [facility] [address] [place] [address] Referring Physician Nephrology 03/17/24
--- OUTSIDE RECORDS SUMMARY | 2024-09-24 10:43 | XMS_ITS | Referral Summary ---
Author Organization [facility] [address] [place] [address] [address] [place] [address] Care Team Providers Care Shuttlecock Assembler Name Role Phone Ramez Ching MD Primary Care Provider Brittany Johnson MD Unavailable [phone] Encounters Date Type Department Care Team Description 08/26/2024 Telephone [facility] [address] [place] [address] Anil Medina MD 07/26/2024 Orders Only [facility] Cardiology [address] [place] [address] [address] [place] [address] Lluvia Fowler NP from Last 3 Months Allergies No known active allergies Medications atorvastatin [...] on chronic diastolic congestive heart failure (CMS/HCC) (HCC) Take 1 tablet (5 mg total) by [...] mg tabletIndication s:Longstanding persistent atrial fibrillation (CMS/HCC) (HCC),Hypertensi on associated with diabetes (HCC) Take 1 tablet (6.25 mg total) by [...] been referred by Dr. Paez undergo his photoresist printer to discuss permanent access creation. Fistula versus [...] 10/10/2022 Hyperlipidemia associated with type 2 diabetes lowell lam 11/09/2021 Assessment & Plan (05/18/2024 8:34 AM [...] Chronic anticoagulation 10/26/2020 Chronic kidney disease 10/26/2020 Social History Tobacco Use Types Packs/Day Years [...] on file Legal Sex Male 12:47 AM WELDER TECH Gender Identity Not on file Sexual Orientation Not on file Last Filed Vital Signs Vital Sign Reading [...] 05/11/2024 1:05 PM CDT Plan of Treatment Not on file Medical Devices Implanted Type Area Structural Steel Fitter Device Identifier Shelf Expiration Date Model / Serial / Lot Wl [employer] 4-7mm 45cm Stretch Peripheral Standard Finance Admin Graft Vascular [id number] - [id number] - [id number] Implanted:Qty: 1 on 04/13/2024 by Chintan Yousif MD at [facility] Graft Left: Arm Wl [employer] [id number] 09/01/2028 [id number] / [id number] / Spinal Cord Stomulater Left: Hip Joint Replacement Bilatera l: Knee Perma Cath Right: Neck Lens Bilatera l: Eye Procedures Procedure Name Priority Date/Time Associated Diagnosis Comments CARDIOLOGY DOCUMENT SCAN Routine 07/13/2024 1:40 PM WELDER TECH EGFR STAT 04/13/2024 6:07 AM CDT from Last 3 Months or Most Recently Relevant to Health Maintenance Results * Cardiology Document Scan (07/13/2024 1:40 PM WELDER TECH) Anatomical Region Laterality Modality Other us Lluvia Fowler NP CV CARDIAC SERVICES PROCEDUR [...] MD LAB BLOOD ORDERABLES Final Resul t [facility] [address] [facility] Department [place] [address] from Last 3 Months or Most Recently Relevant to Health Maintenance Insurance MEDICARE SOLUTIONS MEDICARE SOLUTIONS Care Teams Shuttlecock Assembler Relationship Specialty Start Date End Date Ramez Ching MD [address] [facility] [address] [place] [address] PCP - General Family Medicine 10/08/20 Brittany Johnson MD [address] [facility] [address] [place] [address] Referring Physician Nephrology 03/17/24
--- OUTSIDE RECORDS SUMMARY | 2024-09-24 10:43 | XMS_ITS | Encounter Summary ---
Author Organization [facility] Address [address] [place] [address] Care Team Providers Care Shipping Clerk Crating Name Role Phone Ramez Ching MD Primary Care Provider Brittany Johnson MD Unavailable [phone] Encounter Details Date Type Department Care Team (Late st Contact Info) Description 08/26/2024 Telephone [facility] [address] [place] [address] Anil Medina MD [address] [place] [id number] Social History Tobacco Use Types Packs/Day Years [...] on file Legal Sex Male 12:47 AM BROADCAST METEOROLOGIST Gender Identity Not on file Sexual Orientation Not on file documented as of this encounter Miscellaneous Notes * Telephone Encounter - Shoshana Zurita RN - 08/26/2024 3:27 PM BROADCAST METEOROLOGIST Spoke with pts , reviewed ABDIRASHID's last OV note from 08/27. Per [facility]'s last OV note pt should cont his eliquis and carvedilol. Pt had stopped his eliquis on his own because he was bleeding from his dialysis site but he is not bleeding now. Pt will resume told him the dialysis center may just need tohold pressure a little longer when deaccessing his dialysis access site after his treatments going forward. Scheduled pt for a f/u appt with ABDIRASHID he did not want to see CT if possible. DCAST METEOROLOGIST * Telephone Encounter - An Molina - 08/26/2024 3:06 PM CST Pt spouse states pt is on dialysis and he has been bleeding. Pt has not been taking carvedilol and stopped taking Eliquis about 2 weeks ago. Requesting call back to discuss. Contact: DCAST METEOROLOGIST documented in this encounter Plan of Treatment Not on file documented as of this encounter Visit Diagnoses Not on filedocumented in this encounter Care Teams Shipping Clerk Crating Relationship Specialty Start Date End Date Ramez Ching MD [address] [facility] [address] [place] [address] PCP - General Family Medicine 10/08/20 Brittany Johnson MD [address] [facility] [address] [place] [address] Referring Physician Nephrology 03/17/24 documented as of this encounter
--- OUTSIDE RECORDS SUMMARY | 2024-09-24 10:43 | XMS_ITS | Continuity of Care Document ---
Author Organization [facility] Address [address] [place] [address] Phone Care Team Providers Care Back Line Cook Name Role Phone Dre SHAFFER, Roque Unavailable Unavailabl e Allergies, Adverse Reactions, Alerts Substance Reaction Status Criticality No Known Allergies Active No Inform ation Medications Medication Instructions Dosage Effective Dates (start - stop) Status Comments cholecalciferol (vitamin D3) 50 mcg (2,000 unit) capsule - Active allopurinol 100 mg tablet take 1 tablet by oral route every day 100 MG - Active atorvastatin 20 mg tablet take 1 tablet by oral route every day 20 MG - Active ProAir RespiClick 90 mcg/actuation breath activated inhale 2 puff by inhalation route every 4 - 6 hours as needed 180 MCG - Active Eliquis 2.5 mg tablet take 1 tablet by oral route 2 times every day 2.5 MG - Active tramadol 50 mg tablet take 1 tablet by oral route every 6 hours as needed 50 MG - Active Victoza 2-Vidal 0.6 mg/0.1 mL (18 mg/3 mL) subcutaneous pen injector inject (1.2MG) by subcutaneous route every day 1.2 MG - Active gabapentin 300 mg capsule take 1 capsule by oral route 3 times every day 300 MG - Active bumetanide 1 mg tablet take 1 tablet by oral route every day 1 MG - Active cyanocobalamin (vitamin B-12) 1,000 mcg capsule - Active ferrous sulfate 325 mg (65 mg iron) tablet take 1 tablet by oral route every day 325 MG - Active calcitriol 0.25 mcg capsule take 1 capsule by oral route every day 0.25 MCG - Active carvedilol 12.5 mg tablet take 1 tablet by oral route 2 times every day with food 12.5 MG - Active Procedures Procedure Date INSERT TUNNELED CV CATH >5YRS INTRO CATH SVC/IVC Sterile Barrier Technique Followed Radiation Exposure Documented To Be Coded Insert tunneled cv cath Us guide vascular access Fluoroguide for vein device Removal tunneled cv cath Advance Directives Directive Yes / No Effective Date File Name No Information Encounters Encounter Description Practice Location Reason(s) For Visit Diagnoses Date Provider Providers Copied on Encounter [facility], [address] [place] [address], [id number], tel:[phone] [facility] No Information Dre Culpo. [address] [place] [address], [id number], . tel:[phone] [facility], [address] [place] [address], [id number], tel:[phone] [facility] Dre Culpo. [address] [place] [address], [id number], . tel:[phone] Referring Provider: Paula Johnson, [address] [facility] [address] [facility], [place], [address]. tel:[phone] As per patient privacy policy some of the clinical information may not be visible. Family History Family Member Type Diagnosis Age At Onset No Information Payers Payer name Insurance type Covered alliance party ID Authoriza tion(s) No Information Social History Type Description Quantity Date Captured Comments Sex Male Smoking Status No Information Gender Identity Male Chief Complaint And Reason For Visit No Information Reason For Referral Reason For Referral No Information Plan Of Treatment Date Type Action Status Future Order: Radiology Order Up per Body Flouroscopy ([id number]), Ordered on: Ordered History Of Present Illness Encounter Date Complaint History Of Prese nt Illness No Information Functional Status Date Functional Assessmen t No Information Instructions Date Instruction Additional Infor mation No Information Assessments Type Assessment Date No Information Patient Care Teams Name Effective Dates (start - stop) Status Members No Information
--- OUTSIDE RECORDS SUMMARY | 2024-09-24 10:43 | XMS_ITS | Clinical Summary ---
Author Organization [facility] Address [address], [place] [address] Phone Care Team Providers Care Electrical Instrument Maker Name Role Phone Ramez Ching MD Primary Care Provider [phone] Allergies No known active allergies Medications Medication Sig Dispensed Refills Start Date End Date Status albuterol HFA (PROVENTIL HFA) 108 (90 Base) MCG/ACT inhaler INHALE 2 PUFFS BY MOUTH EVERY 6 HOURS NEEDED FOR SHORTNESS OF BREATH 10/13/2020 Active atorvastatin (LIPITOR) 10 MG tablet Take 10 mg by mouth daily 07/20/2020 Active bumetanide (BUMEX) 1 MG tablet Take 2 mg by mouth 2 times daily Active carvedilol (COREG) 12.5 MG tablet Take 12.5 mg by mouth 2 times daily Active cyanocobalamin 500 MCG tablet Take 500 mcg by mouth daily Active ferrous sulfate 325 (65 Fe) MG tablet Take 650 mg by mouth 01/18/2021 Acti ve liraglutide (Victoza) 18 MG/3ML injection 1.2 mg daily 09/29/2020 Active magnesium oxide (MAG-OX) 400 MG tablet TAKE 1 TABLET BY MOUTH ONCE DAILY FOR 14 DAYS 01/18/2021 Activ e potassium chloride (KLOR-CON M20) 20 MEQ CR tablet 40 mEq daily 01/18/2021 Active rivaroxaban (Xarelto) 15 MG tablet 15 mg daily 10/17/2020 Active traMADol (ULTRAM) 50 MG tablet Take by mouth 09/29/2020 Active B-D ULTRAFINE III SHORT PEN 31G X 8 MM misc See administration instructions 03/06/2022 Active magnesium oxide 400 (240 Mg) MG tablet Take 1 tablet by mouth 1 (one) time each day 02/18/2022 Active potassium chloride (K-TAB) 20 MEQ CR tablet Take 40 mEq by mouth 1 (one) time each day 02/18/2022 Active Active Problems Problem Noted Date Diagnosed Date Hyperlipidemia 11/09/2021 Hypertensive disorder 11/09/2021 Swelling of left upper limb 08/13/2021 Chronic kidney disease 10/26/2020 Longstanding persistent atrial fibrillation 10/03 Long-term current use of anticoagulant Family History Medical History Relation Comments Stroke Father Hypertension Mother Relation Status Comments Father Mother Social History Tobacco Use Types Packs/Day Years Used Date Smoking Tobacco: Former Cigarettes 0.5 3 Smokeless Tobacco: Never Alcohol Use Standard Drinks/Week Comments Never 0 (1 standard drink = 0.6 oz pur e alcohol) Sex and Gender Information Value Date Recorded Sex Assigned at Not on file Gender Identity Not on file Sexual Orientation Not on file Last Filed Vital Signs Vital Sign Reading Time Taken Comments Blood Pressure 146/80 04/24/2022 11:41 AM CDT Pulse - - Temperature 36.2 C (97.2 F) 04/24/2022 11:41 AM CDT Respiratory Rate 18 04/24/2022 11:41 AM CDT Oxygen Saturation - - Inhaled Oxygen Concentration - - Weight 98.9 kg (218 lb) 04/24/2022 11:41 AM CDT Height 177.8 cm (5' 10 ) 04/24/2022 11:41 AM CDT Body Mass Index 31.28 04/24/2022 11:41 AM CDT Plan of Treatment Health Maintenance Due Date Last Done Comments Pneumococcal PPSV23/PCV13 65 + Years / Low and Medium Risk (1 of 4 - PCV) 2006 Influenza Vaccine (#1) 2024 Care Teams Electrical Instrument Maker Relationship Specialty Start Date End Date Ramez Ching MD [address] [facility] [address] [facility] [address] [place] [address] PCP - General Internal Medicine 03/21/22
--- OUTSIDE RECORDS SUMMARY | 2024-09-24 10:43 | XMS_ITS | Continuity of Care Document ---
Author Organization [facility] Address [address] [place] [address] Phone Care Team Providers Care Agriculture Extension Specialist Name Role Phone Gladys Sheikh Unavailable Unavailable Procedures Procedure Date Office/outpatient Visit, Est Dilated Retinal Exam W Interpretation Ks Office/outpatient Visit, Est Dilated Retinal Exam W Interpretation Fe Post-op Follow-up Visit Post-op Follow-up Visit Remove Cataract, Insert Lens Post-op Follow-up Visit Eye Exam & Treatment Dilated Retinal Exam W Interpretation IOLMaster Eye Exam, New Patient Advance Directives Directive Yes / No Effective Date File Name No Information Encounters Encounter Description Practice Location Reason(s) For Visit Diagnoses Date Provider Providers Copied on Encounter [place] [facility] [place] [address], [place], [place], [id number], [place] tel:[phone] [facility] No Information Oct- 0-201 0 Kori Graham. [address], [place], [address], [place]. tel:[phone] [place] [facility] [place] [address], [place], [place], [id number], [place] tel:[phone] [facility] No Information Sep-2 0-200 9 Sheikh Gladys. [address], [place], [place], [facility], [place]. tel:[phone] [facility], [address], [place], [place], [address], [place] tel:[phone] [facility] No Information 2 2-200 8 Sheikh Gladys. [address], [place], [facility], [place]. tel:[phone] [facility], [address], [place], [place], [id number], [place] tel:[phone] [facility] No Information Mar-0 1-200 8 Sheikh Gladys. [address], [place], [facility], [place]. tel:[phone] [facility], [address], [place], [place], [address], [place] tel:[phone] [facility] No Information 4200 8 Sheikh Gladys. [address], [place], [facility], [place]. tel:[phone] [facility] Eye [facility], [address], [place], [place], [address], [place] tel:[phone] [facility] No Information 2 4-200 8 Eisenberg OD Wong. [address], [place], [facility], [place]. tel:[phone] [facility], [address], [place], [place], [address], [place] tel:[phone] [facility] No Information 1 5-200 8 Sheikh Gladys. [address], [place], [address], [place]. tel:[phone] Referring Provider: Ramez Ching MD, [address], [place], [address]. tel:[phone] [facility], [address], [place], [place], [address], [place] tel:[phone] [facility] No Information 7 Kori Graham. [address], [place], [address], [place]. tel:[phone] Referring Provider: Ramez Ching MD, [address], [place], [address]. tel:[phone] Family History Family Member Type Diagnosis Age At Onset No Information Payers Payer name Insurance type Covered republican ID Authoriza tion(s) Medicare [facility] [id number] Social History Type Description Quantity Date Captured Comments Sex Male Smoking Status No Information Chief Complaint And Reason For Visit No Information Reason For Referral Reason For Referral No Information History Of Present Illness Encounter Date Complaint History Of Prese nt Illness No Information Functional Status Date Functional Assessmen t No Information Instructions Date Instruction Additional Infor mation No Information Assessments Type Assessment Date No Information Patient Care Teams Name Effective Dates (start - stop) Status Members No Information
--- OUTSIDE RECORDS SUMMARY | 2024-09-24 12:56 | XMS_ITS | Clinical Summary ---
Author Organization [facility] [address] Address [address] [place] [address] Care Team Providers Care Insole Rasper Name Role Phone Ramez Ching MD Primary Care Provider Brittany Johnson MD Unavailable [phone] Allergies No known active allergies Medications [...] on chronic diastolic congestive heart failure (CMS/HCC) ([facility]) Take 1 tablet (5 mg total) by [...] mg tabletIndication s:Longstanding persistent atrial fibrillation (CMS/HCC) ([facility]),Hypertensi on associated with diabetes ([facility]) Take 1 tablet (6.25 mg total) by [...] been referred by Dr. Paez undergo his intelligence senior sergeant to discuss permanent access creation. Fistula versus [...] Type Department Care Team Description 08/26/2024 Telephone [facility] Cardiology [address] [place] [address] Anil Medina MD 07/26/2024 Orders Only [facility] Cardiology [address] [place] [address] Lluvia Fowler NP from Last 3 Months Surgical History Surgery Date Site/Laterality Comments CENTRAL VENOUS CATHETER INSERTION 06/04/2023 - 07/03/2023 right neck- perma cath JOINT REPLACEMENT Bilateral BL knees SPINAL CORD STIMULATOR IMPLANT 5 years ago-lower left hip CATARACT EXTRACTION Bilateral COLONOSCOPY TUNNELED VENOUS CATHETER PLACEMENT 06/04/2023 - 07/03/2023 Right RIJ leilaacath [facility] DIALYSIS FISTULA CREATION 04/13/2024 Left LUE brachial axillary AVG creation - Dr. Chintan Yousif Medical History Medical History Date Comments CHF (congestive heart failur e) (CMS/HCC) (HCC) Atrial fibrillation (CMS/HCC) (HCC) Hypertension per patient late ly his BP runs low Hyperlipidemia Diabetes mellitus (HCC) SOB (shortness of breath) Gout Type 2 diabetes mellitus (HCC) Dialysis patient ([facility]) RIJ-M-w-f Neuropathy (CMS/HCC) History of blood transfusion yea rs ago Uses walker Status post insertion of spi nal cord stimulator Permanent central venous catheter in place RIJ ESRD (end stage renal diseas e) on dialysis ([facility]) Social History Tobacco Use Types Packs/Day Years [...] on file 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 Gender Identity Not on file Sexual Orientation [...] 04/13/2024, 05/16/2022 Medical Devices Implanted Type Area Information Systems Planner Device Identifier Shelf Expiration Date Model / Serial / Lot [employer] 4-7mm 45cm Stretch Peripheral Standard [employer] Graft Vascular [id number] - [id number] - [id number] Implanted:Qty: 1 on 04/13/2024 by Chintan Yousif MD at [facility] Graft Left: Arm [employer] [id number] 09/01/2028 [id number] / [id number] / Spinal Cord Stomulater Left: Hip Joint Replacement Bilatera l: Knee Perma Cath Right: Neck Lens Bilatera l: Eye Procedures Procedure Name Priority Date/Time Associated Diagnosis Comments CARDIOLOGY DOCUMENT SCAN Routine 07/13/2024 1:40 PM [employer] ARCHITECT EGFR STAT 04/13/2024 6:07 AM CDT from Last 3 Months or Most Recently Relevant to Health Maintenance Results * Cardiology Document Scan (07/13/2024 1:40 PM [employer] ARCHITECT) Anatomical Region Laterality Modality Other Lluvia Fowler [...] MD LAB BLOOD ORDERABLES Final [facility]ul [facility] [address] [facility] Department [place] [address] from Last 3 Months or Most Recently Relevant to Health [place] [address] [place] [address] MEDICARE SOLUTIONS Care Teams Insole Rasper Relationship Specialty Start Date End Date Ramez Ching MD [address] [place] [address] PCP - General Family Medicine 10/08/20 Brittany Johnson MD [address] [facility] [address] [place] [address] Referring Physician Nephrology 03/17/24
--- OUTSIDE RECORDS SUMMARY | 2024-09-24 12:57 | XMS_ITS | Encounter Summary ---
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 Per [facility]'s last OV note pt should cont [...] not want to see CT if possible. SIT DRIVER * Telephone Encounter - An Molina - 08/26/2024 3:06 PM CST Pt spouse states pt is on dialysis and he has been bleeding. Pt has not been taking carvedilol and stopped taking Eliquis about 2 weeks ago. Requesting call back to discuss. Contact: SIT DRIVER documented in this encounter Plan of Treatment Not on file documented as of this encounter Visit Diagnoses Not on filedocumented in this encounter Care Teams Grain Unloader Relationship Specialty Start Date End Date Ramez Ching MD [address] [facility] [address] [place] [address] PCP - General Family Medicine 10/08/20 Brittany Johnson MD [address] [facility] [address] [place] [address] Referring Physician Nephrology 03/17/24 documented as of this encounter
--- OUTSIDE RECORDS SUMMARY | 2024-09-24 12:57 | XMS_ITS | Referral Summary ---
Author Organization [facility] [address] [place] [address] [address] Address [address] [place] [address] Care Team Providers Care Full Time Babysitter Name Role Phone Ramez Ching MD Primary Care Provider Brittany Johnson MD Unavailable [phone] Encounters Date Type Department Care Team Description 08/26/[address] [facility] Cardiology [address] [place] [address] Anil Medina MD 07/26/[address] [facility] Medical [facility] Cardiology [address] [place] [address] [address] [place] [address] Lluvia Fowler NP from Last [...] been referred by Dr. Paez undergo his community service manager to discuss permanent access creation. 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 Gender Identity Not on file Sexual Orientation [...] on file Medical Devices Implanted Type Area Machine Biller Device Identifier Shelf Expiration Date Model / Serial / Lot [employer] 4-7mm 45cm Stretch Peripheral Standard Appeals Referee Graft Vascular [id number] - [id number] - [id number] Implanted:Qty: 1 on 04/13/2024 by Chintan Yousif MD at [facility] Graft Left: Arm [employer] [id number] 09/01/2028 [id number] / [id number] / Spinal Cord Stomulater Left: Hip Joint Replacement Bilatera l: Knee Perma Cath Right: Neck Lens Bilatera l: Eye Procedures Procedure Name Priority Date/Time Associated Diagnosis Comments CARDIOLOGY DOCUMENT SCAN Routine 07/13/2024 1:40 PM PRIOR AUTHORIZATION TECHNICIAN EGFR STAT 04/13/2024 6:07 AM CDT from Last 3 Months or Most Recently Relevant to Health Maintenance Results * Cardiology Document Scan (07/13/2024 1:40 PM PRIOR AUTHORIZATION TECHNICIAN) Anatomical Region Laterality Modality Other us Lluvia [...] LAB BLOOD ORDERABLES Final Resul t [facility] [address] [facility] Department [place] [address] from Last 3 Months or Most Recently Relevant to Health Maintenance Insurance MEDICARE SOLUTIONS [facility] MEDICARE Address: [facility] [address] [place] [address] MEDICARE SOLUTIONS [facility] MEDICARE Address: [address] [address] Care Teams Full Time Babysitter Relationship Specialty Start Date End Date Ramez Ching MD [address] [facility] [address] [place] [address] PCP - General Family Medicine 10/08/20 Brittany Johnson MD [address] [facility] [address] [place] [address] Referring Physician Nephrology 03/17/24
--- OUTSIDE RECORDS SUMMARY | 2024-09-24 12:57 | XMS_ITS | Clinical Summary ---
Author Organization [facility] Address [address], [place] [address] Phone Care Team Providers Care Test Bore Helper Name Role Phone Ramez Ching MD Primary Care Provider [phone] Allergies No known active allergies Medications Medication [...] 2006 Influenza Vaccine (#1) 2024 Care Teams Test Bore Helper Relationship Specialty Start Date End Date Ramez Ching MD [address] [facility] [address] [facility] [address] [place] [address] PCP - General Internal Medicine 03/21/22
--- OUTSIDE RECORDS SUMMARY | 2024-09-24 12:57 | XMS_ITS | Continuity of Care Document ---
Author Organization [facility] Address [address] [place] [address] Phone Care Team Providers Care Chute Builder Name Role Phone Dre SHAFFER, Roque Unavailable [...] Diagnoses Date Provider Providers Copied on Encounter [facility], [address] [place] [address], [id number], tel:[phone] [facility] No Information Dre Culpo. [address] [place] [address], [id number], . tel:[phone] [facility], [address] [place] [address], [id number], tel:[phone] [facility] Dre Culpo. [address] [place] [address], [id number], . tel:[phone] Referring Provider: Paula Johnson, [address] [facility] [address] [facility], [place], [address]. tel:[phone] As per patient privacy policy some of the clinical information may not be visible. Family History Family Member Type Diagnosis Age At Onset No Information Payers Payer name Insurance type Covered republican ID Authoriza tion(s) No Information Social History Type Description Quantity Date Captured Comments Sex Male Smoking Status No Information Gender Identity Male Chief Complaint And Reason For Visit No Information Reason For Referral Reason For Referral No Information Plan Of Treatment Date Type Action Status Future Order: Radiology Order Up per Body Flouroscopy (73062M), Ordered on: Ordered History Of Present Illness Encounter Date Complaint History Of Prese nt Illness No Information Functional Status Date Functional Assessmen t No Information Instructions Date Instruction Additional Infor mation No Information Assessments Type Assessment Date No Information Patient Care Teams Name Effective Dates (start - stop) Status Members No Information
--- OUTSIDE RECORDS SUMMARY | 2024-09-24 12:57 | XMS_ITS | Encounter Summary ---
Author Organization [facility] Address [address] [place] [address] Care Team Providers Care Negative Retoucher Name Role Phone Ramez Ching MD Primary Care Provider Brittany Johnson MD Unavailable [phone] Encounter Details Date Type Department Care Team (Late st Contact Info) Description 04/07/2024 Telephone [facility] [address] [facility] [address] [place], [place] [id number] Chintan Yousif MD [address] [place] [address] [address] [place] [address] Social History Tobacco Use Types Packs/Day Years [...] on file 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
--- OUTSIDE RECORDS SUMMARY | 2024-09-24 12:57 | XMS_ITS | Continuity of Care Document ---
Author Organization [facility] Address [address] [place] [address] Phone Care Team Providers Care Cradle Slide Maker Name Role Phone Gladys Sheikh Unavailable Unavailable Procedures Procedure Date Office/outpatient Visit, Est Dilated Retinal Exam W Interpretation Md Office/outpatient Visit, Est Dilated Retinal Exam W [...] Providers Copied on Encounter [place] [facility] [place] [address], [place], [place], [id number], [place] tel:[phone] [facility] No Information Oct- 0-201 0 Kori Graham. [address], [place], [address], [place]. tel:[phone] [place]pat ient [place] [facility] [place] [address], [place], [place], [id number], [place] tel:[phone] [facility] No Information Sep-2 0-200 9 Sheikh Gladys. [address], [place], [facility], [place]. tel:[phone] [facility], [address], [place], [place], [id number], [place] tel:[phone] [facility] No Information 2 2-200 8 Sheikh Gladys. [address], [place], [facility], [place]. tel:[phone] [facility], [address], [place], [place], [id number], [place] tel:[phone] [facility] No Information Mar-0 1-200 8 Sheikh Gladys. [address], [place], [facility], [place]. tel:[phone] [facility], [address], [place], [place], [id number], [place] tel:[phone] [facility] No Information 4200 8 Sheikh Gladys. [address], [place], [facility], [place]. tel:[phone] [facility], [address], [place], [place], [id number], [place] tel:[phone] [facility] No Information 2 4-200 8 Eisenberg OD Wong. [address], [place], [facility], [place]. tel:[phone] [facility], [address], [place], [place], [address], [place] tel:[phone] [facility] No Information 1 5-200 8 Sheikh Gladys. [address], [place], [address], [place]. tel:[phone] Referring Provider: Ramez Ching MD, [address], [place], [address]. tel:[phone] [facility], [address], [place], [place], [id number], [place] tel:[phone] [facility] No Information 7 Kori Graham. [address], [place], [address], [place]. tel:[phone] Referring Provider: Ramez Ching MD, [address], [place], [address]. tel:[phone] Family History Family Member Type Diagnosis Age At Onset No Information Payers Payer name Insurance type Covered democrat ID Authoriza tion(s) Medicare [facility] [id number] Social History Type Description Quantity Date Captured [...]
--- NOTE | 2024-09-24 12:58 | ECG_ITS ---
Test Date: 2024-09-24 13:09:16 Measurements Intervals Sheldon Rate: 59 P: 0 NE: 0 QRS: 76 QRSD: 147 T: 233 QT: 477 QTc: 476 Interpretive Statements ATRIAL FIBRILLATION WITH SLOW VENTRICULAR RESPONSE RIGHT BUNDLE BRANCH BLOCK CONSIDER ANTEROSEPTAL INFARCT, AGE INDETERMINATE ST-T WAVE ABNORMALITY IN INF/LAT LEADS- CONSIDER ISCHEMIA ABNORMAL ECG Compared to ECG 07/21/2024 08:27:19 HEART RATE HAS DECREASED Electronically Signed On 09-24-2024 13:16:20 ABE TEACHER by Neo Nieto D.O.
--- NOTE | 2024-09-24 13:10 | ED_ITS ---
HPI - Weakness General Chief complaint: Weakness Stated complaint: malaise, hypotensive, 3 hours dialysis completed Time Seen by Provider: 09/24/24 12:31 History of Present Illness HPI Narrative: 84-year-old male with a past medical history including end-stage renal disease on hemodialysis Friday, Friday, Friday, congestive heart failure, AFib on Eliquis, chronic hypotension on midodrine, hypertension, [id number] diabetes. Today patient presents from his dialysis center for complaints of vague symptoms, generalized malaise, not feeling well. Patient does not make any urine has a shunt in his left upper extremity for dialysis access. Has missed 1 session which was Friday this week but otherwise is not missed his dialysis sessions Friday or today. Denies any fever chills but has sick contacts at the dialysis center. No chest pain difficulty breathing. He states he feels mostly symptom free while here in the emergency department feels much better but he is having low blood pressure with readings in the 80s to 90 systolic. They took off 2 L of fluid at dialysis but patient states he has also been having a diarrheal illness recently with fluid losses. Denies any nausea or vomiting. No present ongoing diarrhea. No abdominal pain, distension, shortness of breath. No worsening swelling the arms or legs. Related Data Home Medications ?Medication ?Instructions ?Recorded ?Confirmed ?Last Taken ?Type cholecalciferol (vitamin D3) 50 50 mcg PO DAILY 12/26/22 09/02/24 12/17/23 History mcg (2,000 unit) capsule cyanocobalamin (vitamin B-12) 1,000 mcg PO DAILY 11/03/23 09/02/24 12/17/23 History 1,000 mcg capsule albuterol sulfate 90 mcg/actuation 2 puff inhalation Q6H PRN 07/12/24 09/02/24 Unknown History aerosol inhaler sob/wheezing calcium acetate(phosphat bind) 667 1,334 mg PO TIDWM 07/12/24 09/02/24 Unknown History mg tablet liraglutide 0.6 mg/0.1 mL (18 mg/3 1.2 mg subcut DAILY 07/12/24 09/02/24 Unknown History mL) subcutaneous pen injector (Victoza 2-Vidal) fluticasone 250 mcg-salmeterol 50 1 inh inhalation Q12H 07/21/24 09/02/24 Unknown History mcg/dose blistr powdr for inhalation (Advair Diskus) fluticasone 250 mcg-salmeterol 50 1 inh inhalation Q12H 07/21/24 09/02/24 Unknown History mcg/dose blistr powdr for inhalation (Advair Diskus) Allergies Allergy/AdvReac Type Severity Reaction Status Date / Time No Known Allergies Allergy Verified 09/02/24 12:57 Review of Systems 2 Review of Systems: As reviewed above in HPI [facility] Past Medical History Medical History Gout Sleep apnea intolerant of CPAP End-stage renal disease on hemodialysis Chronic anemia Benign prostatic hyperplasia Pulmonary hypertension Anemia of chronic disease Chronic anticoagulation Umbilical hernia Iron deficiency anemia B12 deficiency anemia Congestive heart failure Echocardiogram October 2020: Indeterminate diastolic function, EF 65-70%, mild right ventricular enlargement, mildly increased left ventricular wall thickness, mild left atrial enlargement, mild mitral valve regurgitation, mild tricuspid valve regurgitation, moderate pulmonary hypertension with RVSP 59, moderate pulmonic valve regurgitation Atrial fibrillation Essential (primary) hypertension Mixed hyperlipidemia Type 2 diabetes mellitus with diabetic neuropathy Surgical History Surgical History Status post insertion of spinal cord stimulator History of cataract extraction with lens replacement History of bilateral knee arthroplasty Normal colonoscopy (~2007) Family History Family History Father Cerebrovascular accident Mother Hypertension Sibling Hypertension Other Kidney disease, chronic, end stage on dialysis Social History Social History Social History: Surrogate medical decision maker: Kathy Yanez, spouse. Code status: Full code. Smoking packs per day: 0.5 Smoking cigarettes per day: 10.0 Years smoked: 2.5 Smoking pack-years: 1.25 Smoking status: Former smoker Second hand tobacco smoke exposure: Yes Alcohol intake: unknown Substance use: unknown Substance use type: unknown Do You Feel Safe in your Home?: Yes Lack of Transportation: No Lack of Food: Never True Current Housing: I Have Housing Concerned About Future Housing: No Difficulty Paying Gas/Electric Bills: No Difficulty Paying for Meds: No Currently Unemployed: No Education: Bachelor's Degree Difficulty w/ Childcare or Family Care: No Living arrangements: with family Additional living arrangements comments: Lives with spouse of nearly 60 years. They have a son and daughter. 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 Spiritual care concerns: No Exam 2 Narrative: GENERAL: Chronically unwell appearing but not any acute distress, answering all questions appropriately, awake and alert oriented. HEAD: [Normocephalic, atraumatic.] EYES: [PERRLA and EOMI.] ENT: Nares clear, no rhinorrhea or epistaxis. Mucous membranes moist. NECK: Supple. CHEST: [Clear to auscultation. No respiratory distress.] HEART: [Regular rate and rhythm]. No murmur heard. [Normal peripheral pulses.] ABDOMEN: Protuberant, soft, [nontender], [No rigidity or guarding] EXTREMITIES: Normal range of motion. 1+ edema to the extremities SKIN: Cool bilateral lower extremities which patient states is chronic, some thickening of the skin without any overlying cellulitis or ulceration NEURO: [No focal deficits]. Alert and oriented [x3.] PSYCH: [Normal mood and affect.] Course Vital Signs Vital signs: Vital Signs Temperature 36.7 C 09/24/24 10:25 Pulse Rate 58 L 09/24/24 10:25 Respiratory Rate 20 09/24/24 10:25 Blood Pressure 97/64 L 09/24/24 10:25 Pulse Oximetry 100 09/24/24 10:25 Oxygen Delivery Room Air 09/24/24 10:25 Temperature 36.9 C 09/24/24 12:47 Pulse Rate 63 09/24/24 15:01 Respiratory Rate 15 09/24/24 15:01 Blood Pressure 99/64 L 09/24/24 12:47 Pulse Oximetry 96 09/24/24 12:47 Oxygen Delivery Room Air 09/24/24 10:25 MDM - Weakness MDM Narrative Medical decision making narrative: 84-year-old male presenting from dialysis for episode of hypotension, malaise, generalized feeling unwell. Patient has lots of a complaints but states they feel mostly resolved while here in the ED. Is noted to have some low blood pressure but on review of the EMR he has chronic hypotension and takes midodrine during dialysis sessions. He has been having reason diarrheal illness that is mostly resolved. Missed 1 session of dialysis on Friday but otherwise went Friday and today. Complete 3 hours dialysis today and they took off 2 L of fluid. Patient otherwise appears at his baseline state of health and considerations presently are for transient hypotension during dialysis with fluid shifts, electrolyte shifts, hypokalemia, hypomagnesemia, uremia from his missed dialysis session, less likely hyperkalemia as he was actually dialyzed today, hypovolemia from removal fluids in the setting of diarrheal illness. Presently patient is a blood pressure 99/64, no tachycardia, fever, hypoxia. Noted to be atrial fibrillation on the monitor which is chronic. Is chronically anticoagulated. Blood work was obtained, he was given a L of fluid and 5 mg of p.o. midodrine which is half of his home dose. EKG, chest x-ray and patient frequently reassessed. Patient's laboratory studies showed no leukocytosis, stable anemia 12.9 compared to his baseline. Platelets also at his baseline level of thrombocytopenia. Electrolytes show some hyperkalemia at 5.5, BUN and creatinine at his normal end-stage renal levels. No significant uremia. Normal glucose, negative lactic acid. Mild elevated bilirubin but no significant LFT derangements. Troponin elevated 0.051. On review of patient's previous laboratory assessments he has had elevated troponins in the past but had and antrum where it was negative an undetectable which this could be secondary to his hypotension versus acute cardiac event. EKG was reviewed and he does appear to have a T-wave inversion in lead 1 compared to previous but has chronic right bundle branch block and chronic AFib with slow ventricular response. No ST segment elevations or depressions. Will obtain 3 hour repeat troponin in EKG, patient was given a dose of Lokelma for his hyperkalemia. I went and re-evaluated the patient who states he still feels okay without any significant symptoms but given his significant derangements on laboratory assessments and hypotension which has mildly improved with gentle hydration and midodrine I believe would benefit from a hospital admission for evaluation by Cardiology, Nephrology and repeat labs including troponin trending, potassium trending and treatment as needed. Patient was comfortable with this plan. Awaiting hospitalist consultation. Spoke to the mid-level provider Key, currently covering the hospitalist service. We discussed patient's clinical examination history and laboratory findings and workup as well as the plan of care. Patient will be admitted to the intermediate care unit for evaluation of his troponin and repeat trending of his potassium. Consult was placed to Nephrology. Orders placed for admission. Patient and family were comfortable with the admission at this time. Medical Records Attestation: I reviewed the patient's medical records. Lab Data Attestation: I reviewed the patient's lab results. 09/24/24 13:36 09/24/24 13:36 Labs: Lab Results 09/24/24 09/24/24 09/24/24 Range/Units 13:36 14:14 15:17 WBC 6.1 (4.5-10.0) K/mm3 RBC 4.08 L (4.6-6.20) M/mm3 Hgb 12.9 L (14.0-18.0) g/dL Hct 40.5 L (42.0-52.0) % MCV 99.3 (80-100) fl MCH 31.6 (26-34) pg MCHC 31.9 L (32-36) g/dl RDW 16.1 H (11.5-14.5) % Plt Count 85 L (150-375) k/mm3 MPV 11.7 H (7.4-10.4) fl Immature Gran % (Auto) 0.3 (0-0.5) % Neut % (Auto) 72.8 (45.5-73.1) % Lymph % (Auto) 14.1 L (18.3-44.2) % [place] % (Auto) 11.6 H (2.6-8.5) % Eos % (Auto) 0.5 (0-4.4) % Baso % (Auto) 0.7 (0.2-1.2) % Lymph # (Auto) 0.86 L (0.9-3.2) K/mm3 [place] # (Auto) 0.7 H (0.1-0.6) K/mm3 Eos # (Auto) 0.0 (0-0.3) K/mm3 Baso # (Auto) 0.0 (0.0-0.1) K/mm3 Abs Immat Gran (auto) 0.02 (0.00-0.031) K/mm3 Absolute Neuts (auto) 4.4 (1.3-6.7) K/mm3 Absolute Nucleated RBC 0.000 (0.0-0.012) K/mm3 Nucleated RBC % 0.0 (0.0-0.2) % % Immature Plt Fraction 5.4 (0.9-11.2) % Sodium 139 (137-145) mmol/L Potassium 5.5 H (3.4-5.0) mmol/L Chloride 95 L (98-107) mmol/L Carbon Dioxide 33 H (22-30) mmol/L Anion Gap 11 (4-12) mmol/L BUN 41 H D (9-20) mg/dL Creatinine 5.93 H (0.7-1.3) mg/dL Estim Creat Clear Calc Not Reportable Estimated GFR 9 L (59 - ) Glucose 112 H (65-110) mg/dL Lactic Acid 1.7 (0.7-2.0) mmol/L Calcium 7.3 L (8.4-10.2) mg/dL Magnesium 2.1 (1.6-2.3) mg/dL Total Bilirubin 2.0 H (0.2-1.3) mg/dL AST 21 (17-59) U/L ALT 13 (6-50) U/L Alkaline Phosphatase 132 H (38-126) U/L Troponin I 0.051 H* Pending (0.000-0.034) ng/mL Total Protein 8.0 (6.3-8.2) g/dL Albumin 3.5 (3.5-5.1) g/dL Influenza A (RT-PCR) Negative (Negative) Influenza B (RT-PCR) Negative (Negative) RSV (RT-PCR) Negative (Negative) SARS-CoV-2 RNA (RT-PCR) Negative (Negative) Imaging Data Attestation: I personally reviewed and interpreted this imaging study as follows: My impression: Impressions Chest X-Ray 09/24/24 14:14 IMPRESSION: 1. Stable mild airspace opacities in the mid and lower lung zones, likely atelectasis. 2. Small right pleural effusion. 3. Cardiomegaly. ECG Data EKG #1: Attestation: I personally reviewed and interpreted this ECG as follows: ECG completion date: 09/24/24 ECG completion time: 13:09 Prior ECG tracings: available for review Interpretation: Atrial fibrillation, slow ventricular response, right bundle branch block, chronic. Appears to have a new T-wave inversion lead 1 compared to previous EKG. No contiguous inversions or ST segment elevations or depressions. No significant interval change aside from the isolated T-wave inversion. Overall interpretation AFib with slow ventricular response and chronic right bundle branch block. Critical Care Time Critical Care Time Critical Care Time: Yes Total Critical Care Time: 35 Discharge Plan Discharge Clinical Impression: Acute hyperkalemia, ESRD (end stage renal disease) on dialysis, Elevated troponin, Episode of generalized weakness, Transient hypotension, Chronic hypotension Patient Disposition: Still a Patient Condition: Stable Patient Language: German Prescriptions: No Action cholecalciferol (vitamin D3) 50 mcg (2,000 unit) capsule 50 mcg PO DAILY cyanocobalamin (vitamin B-12) 1,000 mcg Capsule 1,000 mcg PO DAILY calcium acetate(phosphat bind) 667 mg tablet 1,334 mg PO TIDWM albuterol sulfate 90 mcg/actuation HFA aerosol inhaler 2 puff inhalation Q6H PRN (Reason: sob/wheezing) liraglutide [Victoza 2-Vidal] 0.6 mg/0.1 mL (18 mg/3 mL) pen injector 1.2 mg subcut DAILY acetaminophen 325 mg Tablet 650 mg PO Q6H PRN (Reason: Mild Pain (1-3) Or Fever) Qty: 30 0RF fluticasone propion-salmeterol [Advair Diskus] 250-50 mcg/dose blister with device 1 inh inhalation Q12H fluticasone propion-salmeterol [Advair Diskus] 250-50 mcg/dose blister with device 1 inh inhalation Q12H lactulose 20 gram/30 mL Solution 20 g PO BID Qty: 300 0RF Rx Instructions: titrate dose to have at least 2 bm per day calcitriol 0.25 mcg capsule 0.25 mcg PO 4XW Qty: 48 4RF Rx Instructions: Take on Mondays, Wednesdays, Fridays, and Sundays ferrous sulfate [FeroSul] 325 mg (65 mg iron) tablet 650 mg PO EVERY OTHER DAY Qty: 90 1RF atorvastatin 10 mg tablet 10 mg PO DAILY Qty: 90 2RF Eliquis 2.5 mg tablet 2.5 mg PO Q12HR Qty: 180 1RF allopurinol 100 mg tablet 100 mg PO DAILY Qty: 90 3RF bumetanide 1 mg tablet 1 mg PO BID Qty: 60 5RF tramadol 50 mg tablet 50 mg PO Q8H PRN (Reason: pain) Qty: 90 0RF benzonatate 100 mg capsule See Rx Instructions .ROUTE .COMPLEX Qty: 60 0RF Dose Instruction: TAKE 1 TO 2 CAPSULES BY MOUTH THREE TIMES DAILY NEEDED FOR COUGH . DO NOT EXCEED 6 PER 24 HOURS Rx Instructions: TAKE 1 TO 2 CAPSULES BY MOUTH THREE TIMES DAILY NEEDED FOR COUGH . DO NOT EXCEED 6 PER 24 HOURS midodrine 10 mg tablet 10 mg PO WITH DIALYSIS PRN (Reason: hypotension with dialysis) Qty: 12 12RF Follow-up/Referrals: Ramez Ching MD [Primary Care Provider] - Time of Disposition: 15:37
--- NOTE | 2024-09-24 13:33 | PC.NURSE ---
vascular access at bedside- pt requiring iv placement with ultrasound
[2024-09-24] MEDS: LACTATED RINGERS 1,000 ML 999 ML IV CONT (13:39)
[2024-09-24] MEDS: MIDODRINE HCL 2.5 MG TABLET 5 MG PO ×2 (13:40→17:54)
[2024-09-24 13:44] LABS: Basophils Percent Auto 0.7 % (0.2-1.2); Eosinophils Percent Auto 0.5 % (0-4.4); Hematocrit 40.5 % (42.0-52.0); Hemoglobin 12.9 g/dL (14.0-18.0); Immature Granulocyte Absolute 0.02 K/mm3 (0.00-0.031); Immature Granulocyte Percent A 0.3 % (0-0.5); Immature Platelet Fraction Pct 5.4 % (0.9-11.2); Lymphocytes Absolute Auto 0.86 K/mm3 (0.9-3.2); Lymphocytes Percent Auto 14.1 % (18.3-44.2); Mean Corpuscular HGB Conc 31.9 g/dl (32-36); Mean Corpuscular Hemoglobin 31.6 pg (26-34); Mean Corpuscular Volume 99.3 fl (80-100); Mean Platelet Volume 11.7 fl (7.4-10.4); Monocytes Absolute Auto 0.7 K/mm3 (0.1-0.6); Monocytes Percent Auto 11.6 % (2.6-8.5); Neutrophils Absolute Auto 4.4 K/mm3 (1.3-6.7); Neutrophils Percent Auto 72.8 % (45.5-73.1); Platelet Count Result 85 k/mm3 (150-375); Red Blood Count 4.08 M/mm3 (4.6-6.20); Red Cell Distribution Width 16.1 % (11.5-14.5); White Blood Count 6.1 K/mm3 (4.5-10.0)
[2024-09-24 13:59] LABS: Alanine Aminotransferase 13 U/L (6-50); Albumin Level 3.5 g/dL (3.5-5.1); Alkaline Phosphatase 132 U/L (38-126); Anion Gap 11 mmol/L (4-12); Aspartate Amino Transferase 21 U/L (17-59); Blood Urea Nitrogen 41 mg/dL (9-20); Calcium 7.3 mg/dL (8.4-10.2); Carbon Dioxide 33 mmol/L (22-30); Chloride 95 mmol/L (98-107); Estimated Glomerular Filt Rate 9; Glucose 112 mg/dL (65-110); Magnesium 2.1 mg/dL (1.6-2.3); Potassium 5.5 mmol/L (3.4-5.0); Sodium 139 mmol/L (137-145)
[2024-09-24 14:18] LABS: Influenza A QL RT-PCR Negative (Negative); Influenza B QL RT-PCR Negative (Negative); RSV RNA, RT-PCR Negative (Negative); SARS-CoV-2 RNA PCR Negative (Negative)
[2024-09-24 14:29] LABS: Lactic Acid Reflex 1.7 mmol/L (0.7-2.0)
[2024-09-24 14:51] LABS: Troponin I 0.051 ng/mL (0.000-0.034)
[2024-09-24] MEDS: SODIUM ZIRCONIUM CYCLOSILICATE 10 GM POWD.PACK PO (15:24)
--- NOTE | 2024-09-24 15:29 | ECG_ITS ---
Test Date: 2024-09-24 15:41:22 Measurements Intervals [place] Rate: 61 P: 0 OR: 0 QRS: 82 QRSD: 144 T: 251 QT: 474 QTc: 479 Interpretive Statements ATRIAL FIBRILLATION RIGHT BUNDLE BRANCH BLOCK MINIMAL Q WAVES- INFERIOR LEADS CONSIDER ANTEROSEPTAL INFARCT, AGE INDETERMINATE ST-T WAVE ABNORMALITY IN LAT/INF LEADS- CONSIDER ISCHEMIA ABNORMAL ECG Compared to ECG 09/24/2024 13:09:16 NO SIGNIFICANT CHANGE Electronically Signed On 09-24-2024 15:54:11 OPHTHALMIC MEDICAL TECHNICIAN by Neo Nieto D.O.
--- NOTE | 2024-09-24 15:42 | PM.IMHP ---
H&P: HPI History of Present Illness Date/Time: 09/24/24 15:42 Chief Complaint: General Malaise Narrative: 84 y/o M presents here with general malaise with PMH of ESRD on HD, CHF, AFib on Eliquis, chronic hypotension on midodrine, KEV not on CPAP, and diabetes. The patient presents here from his dialysis center for further evaluation of general malaise. He reports he has a history of ESRD on HD with treatment days on // at [facility] in [place]. Initially, the patient missed his treatment on Friday due to a pipe bursting at his facility. Reports he has had general malaise, cough, diarrhea, fine tremors to his bilateral hands that has been ongoing for 7 days. Today he was only able to complete 3/4 of his dialysis treatment due to feeling unwell - abdominal cramping and nausea, reports they were able to remove 2L but typically gets 3L off. He denies fever, chills, body aches, congestion, shortness of breath, chest pain, dizziness. Of note, the patient no longer makes urine. No known sick contacts. Initial VS at presentation: 98? F, HR 58, RR 20, 97/64, and 100% on RA. ED workup showed: No leukocytosis, hemoglobin 12.9 (previously 11.3 on 08/04/2024), K 5.5, creatinine 5.93 and GFR 9, lactic 1.7, calcium 7.3, and viral PCR negative. CXR showed stable mild airspace opacities in the mid and lower lung zones likely atelectasis, small right pleural effusion, and cardiomegaly. Initial EKG showed AFib with slow ventricular response, RBBB, consider in serial septal infarct age indeterminate, ST-T-wave abnormality in inferior/lateral leads consider ischemia. When compared to EKG done in July of 2024, heart rate has decreased. Review of Systems Review of Systems: All systems reviewed & are unremarkable except as noted in HPI and below [facility] Past Medical History Medical History Shingles Benign prostatic hyperplasia Vitamin D deficiency Secondary renal hyperparathyroidism Chronic anticoagulation Atrial fibrillation with slow ventricular response Pulmonary hypertension Congestive heart failure 07/2024: Hyperdynamic systolic function, estimated EF 70%, severely dilated right ventricle. Gout Sleep apnea intolerant of CPAP End-stage renal disease on hemodialysis Anemia of chronic disease Umbilical hernia Iron deficiency anemia B12 deficiency anemia Essential (primary) hypertension Mixed hyperlipidemia Type 2 diabetes mellitus with diabetic neuropathy Surgical History Surgical History Status post insertion of spinal cord stimulator History of cataract extraction with lens replacement History of bilateral knee arthroplasty Normal colonoscopy (~2007) Family History Family History Father Cerebrovascular accident Mother Hypertension Sibling Hypertension Other Kidney disease, chronic, end stage on dialysis Social History Social History Social History: Surrogate medical decision maker: Kathylev Yanez, spouse. Code status: Full code. Smoking packs per day: 0.5 Smoking cigarettes per day: 10.0 Years smoked: 5 Smoking pack-years: 2.50 Smoking status: Former smoker Second hand tobacco smoke exposure: Yes Alcohol intake: never Substance use: never Substance use type: unknown Do You Feel Safe in your Home?: Yes Lack of Transportation: No Lack of Food: Never True Current Housing: I Have Housing Concerned About Future Housing: No Difficulty Paying Gas/Electric Bills: No Difficulty Paying for Meds: No Currently Unemployed: No Education: Bachelor's Degree Difficulty w/ Childcare or Family Care: No Living arrangements: with family Additional living arrangements comments: Lives with spouse of nearly 60 years. They have a son and daughter. Occupation/Education: retired Additional occupation/education comments: Retired from working with [employer]. Spiritual care concerns: No Meds Home Medications and Allergies Home Medications ?Medication ?Instructions ?Recorded ?Confirmed ?Type atorvastatin 10 mg tablet 10 mg PO DAILY #90 tabs 02/23/24 09/24/24 Rx apixaban 2.5 mg tablet (Eliquis) 2.5 mg PO Q12HR #180 tabs 03/12/24 09/24/24 Rx allopurinol 100 mg tablet 100 mg PO DAILY #90 tabs 03/31/24 09/24/24 Rx bumetanide 1 mg tablet 1 mg PO BID #60 tabs 06/16/24 09/24/24 Rx albuterol sulfate 90 mcg/actuation 2 puff inhalation Q6H PRN 12/09/24 02/21/25 History aerosol inhaler sob/wheezing acetaminophen 325 mg tablet 650 mg (2 x 325 mg) PO Q6H PRN 07/17/24 09/24/24 Rx Mild Pain (1-3) Or Fever #30 tabs fluticasone 250 mcg-salmeterol 50 1 inh inhalation Q12H 07/21/24 09/24/24 History mcg/dose blistr powdr for inhalation (Advair Diskus) tramadol 50 mg tablet 50 mg PO Q8H PRN pain #90 tabs 08/23/24 09/24/24 Rx benzonatate 100 mg capsule See Rx Instructions .Route 09/13/24 09/24/24 Rx .COMPLEX #60 caps carvedilol 6.25 mg tablet 6.25 mg PO Q12H 09/24/24 09/24/24 History midodrine 10 mg tablet 10 mg PO WITH DIALYSIS PRN 09/24/24 09/24/24 Rx hypotension with dialysis #12 tabs sevelamer carbonate 800 mg tablet 1,600 mg PO TIDWM 09/24/24 09/24/24 History (Renvela) Allergies Allergy/AdvReac Type Severity Reaction Status Date / Time No Known Allergies Allergy Verified 09/02/24 12:57 Vital Signs Vital Signs - 24 hr 09/24/24 10:25 09/24/24 12:47 09/24/24 15:01 Temperature 98.0 F 98.4 F Pulse Rate 58 L 62 63 Respiratory Rate 20 19 15 Blood Pressure 97/64 L 99/64 L Pulse Oximetry 100 96 Oxygen Delivery Room Air Exam Const: General: comfortable and no acute distress Other: , male, nontoxic appearance HENMT: Face/Nose/Sinus: Normal nares present Mouth: Yes moist mucous membranes Eyes: General: appearance normal, both eyes and all related structures Sclera: sclerae normal Pupils: Equal, round and reactive pupils present EOM: EOMs intact bilaterally Resp: Effort & Inspection: normal respiratory effort Auscultation: clear to auscultation bilaterally Cardio: Rate: regular rate Rhythm: regular rhythm Other: S1-S2 present without murmur, rub, ectopy GI: Other: Abdomen soft, nondistended. Reducible umbilical hernia. No abdominal tenderness. Skin: General skin exam: normal color and no rashes or lesions noted Other: Small pressure ulcer less than 1 cm to right buttock. No signs of infection. Neuro: Speech: normal speech Motor exam (neuro): 5/5 motor strength present throughout Sensory Exam: normal sensation Other: A&O x4 Extrem: Other: 2+ edema to BLE with trace pitting. DP pulses 2+. Psych: Mental Status: mental status grossly normal Affect: normal affect Other: Good insight and judgment, pleasant H&P: Results Labs Labs: Short CBC 09/24/24 Range/Units 13:36 WBC 6.1 (4.5-10.0) K/mm3 Hgb 12.9 L (14.0-18.0) g/dL Hct 40.5 L (42.0-52.0) % Plt Count 85 L (150-375) k/mm3 BMP 09/24/24 13:36 Sodium 139 Potassium 5.5 H Chloride 95 L Carbon Dioxide 33 H BUN 41 H D Creatinine 5.93 H Glucose 112 H Calcium 7.3 L Cardiac Enzymes 09/24/24 Range/Units 14:14 Troponin I 0.051 H* (0.000-0.034) ng/mL Liver Function 09/24/24 Range/Units 13:36 Total Bilirubin 2.0 H (0.2-1.3) mg/dL AST 21 (17-59) U/L ALT 13 (6-50) U/L Alkaline Phosphatase 132 H (38-126) U/L Albumin 3.5 (3.5-5.1) g/dL Assessment and Plan Assessment and plan (1) Chronic hypotension: Code(s): I95.89 - Other hypotension Status: Acute Assessment and Plan: - BP range since arrival: 97/64-99/64 - IV fluids: 1L bolus - continue midodrine - albumin 3.5, will add albumin 25G x2 - CXR showing no signs of PNA, viral PCR negative, no longer makes urine Patient reporting diarrhea for the past 7 days, suspect worsening chronic hypotension related to same. (2) Acute hyperkalemia: Code(s): E87.5 - Hyperkalemia Status: Acute Assessment and Plan: - K 5.5 - initial treatment with Lokelma, repeat this evening at 6:30pm - telemetry monitoring (3) Elevated troponin: Code(s): R79.89 - Other specified abnormal findings of blood chemistry Status: Acute Assessment and Plan: - EKG, initial: AFib with slow ventricular response, RBBB, consider anterior septal infarct age indeterminate, ST-T-wave abnormality in inferior/lateral leads consider ischemia. When compared to EKG done on 07/21/2024, heart rate has decreased. - EKG, repeat (1): AFib, RBBB, minimal Q-waves inferior leads, consider anteroseptal infarct age indeterminate, ST-T-wave abnormality in lateral/inferior leads consider ischemia. When compared to EKG done earlier today, there are no significant changes. - CXR: 1. Stable mild airspace opacities in the mid and lower lung zones, likely atelectasis. 2. Small right pleural effusion. 3. Cardiomegaly. - Troponin: 0.051-> 0.053, thus far flat and generally noted to be positive per chart review. Will continue to trend. No chest pain. - echo, previous (07/2024): Hyperdynamic systolic function, estimated EF greater than 70%, right ventricle severely dilated with reduced systolic function. See report for full details. - telemetry monitoring (4) ESRD (end stage renal disease) on dialysis: Code(s): N18.6 - End stage renal disease; Z99.2 - Dependence on renal dialysis Status: Acute Assessment and Plan: - creatinine 5.93 and GFR 9, BUN 41 - nephrology consulted for inpatient dialysis - dialysis: Friday, Friday, Friday - trend renal function - trend electrolytes, correct as needed (5) Diabetes: Qualifiers: Chronic kidney disease stage: on chronic dialysis Diabetes mellitus complication detail: with chronic kidney disease Diabetes mellitus complication status: with kidney complications Diabetes mellitus termite treater insulin use: without intermediate use Diabetes mellitus type: type 2 Qualified Code(s): E11.22 - Type 2 diabetes mellitus with diabetic chronic kidney disease; N18.6 - End stage renal disease; Z99.2 - Dependence on renal dialysis Code(s): E11.9 - Type 2 diabetes mellitus without complications Status: Chronic Assessment and Plan: - hypoglycemia protocol - POC blood glucose ACHS - no current home medications - correct regimen ordered - low dose TIDWM, based off TDD - A1C 6.5% on 03/06/2024, update (6) Essential (primary) hypertension: Code(s): I10 - Essential (primary) hypertension Status: Chronic Assessment and Plan: - chronic, currently soft - hold home medications: Coreg - monitor Plan Small pressure wound, less than 1 cm to buttocks. Wound during consulted. No signs of infection. Diet: Renal GI Prophylaxis: Not currently indicated DVT Prophylaxis: Eliquis Lines: Peripheral Code Status: Full code Quality VTE Prophylaxis VTE prophylaxis: pharmacologic ordered Hospitalist MIPS Advance Care Plan I have confirmed that the patient's Advanced Care Plan is present, code status is documented, or surrogate decision maker is listed in patient medical record.: Yes Medication Reconciliation I have utilized all available resources to obtain, update and review the patients current medications (includes all prescriptions, OTC, herbals, cannabis, and nutritional supplements).: Yes
[2024-09-24 16:05] LABS: Troponin I 0.053 ng/mL (0.000-0.034)
--- NOTE | 2024-09-24 17:35 | ADMGEN ---
This patient, Khalif Yanez, was admitted to IMU Room 206-01 at 1702. Patient/family oriented to hospital policies and general routines including ID bracelet, bed and alarms, visiting hours, pain management, procedures, bathroom and other care routines, personal items, smoking policy, room service/diet, and visiting hours. Information on how to activate the Rapid Response Team has been discussed. Patient/Family are encouraged to report perceived risks to care and to ask questions if they do not understand what they are told or what they should do.
[2024-09-24] MEDS: ONDANSETRON INJ 4 MG/2 ML VIAL IV PUSH ×2 (17:54→23:27)
[2024-09-24 18:32] LABS: Glucose Point of Care 160 mg/dl (65-105)
[2024-09-24] MEDS: ALBUMIN HUMAN 25% 25 GM/100 ML 100 ML IVPB (18:59)
[2024-09-24 19:18] LABS: Anion Gap 12 mmol/L (4-12); Blood Urea Nitrogen 40 mg/dL (9-20); Calcium 7.2 mg/dL (8.4-10.2); Carbon Dioxide 31 mmol/L (22-30); Chloride 94 mmol/L (98-107); Estimated CRCL calculation 10 ml/min; Estimated Glomerular Filt Rate 8; Glucose 169 mg/dL (65-110); Potassium 5.6 mmol/L (3.4-5.0); Sodium 137 mmol/L (137-145)
[2024-09-24 19:46] LABS: Troponin I 0.045 ng/mL (0.000-0.034)
[2024-09-24 20:23] LABS: Glucose Point of Care 264 mg/dl (65-105)
[2024-09-24] MEDS: ALBUTEROL SULFATE NEB 2.5 MG/3 ML INH INHALATION (20:53)
[2024-09-24] MEDS: FLUTICASONE/SALMETEROL 115-21 MCG INHALER 1 PUFF 2 PUFF INHALATION (20:53)
[2024-09-24] MEDS: CALCIUM GLUC 1,000 MG/NS 100ML 1,000 MG/100 ML BAG 200 MG IVPB (21:22)
[2024-09-24] MEDS: APIXABAN 2.5 MG TABLET PO (21:31)
[2024-09-24] MEDS: DEXTROSE 50% 25 GM/50 ML SYRINGE IV PUSH (21:50)
[2024-09-24] MEDS: INSULIN HUMAN REGULAR (*BKC) 100 UNITS/ML 10 UNITS IV PUSH (21:54)
[2024-09-24 23:04] LABS: Glucose Point of Care 142 mg/dl (65-105)
[2024-09-25] VITALS (30 sets, daily range): BP systolic 76–125; BP diastolic 39–93; PULSE 57–82; RESP 17–24; TEMP 36.4–37; O2SAT 92–100
[2024-09-25 00:11] LABS: Anion Gap 12 mmol/L (4-12); Blood Urea Nitrogen 49 mg/dL (9-20); Calcium 7.2 mg/dL (8.4-10.2); Carbon Dioxide 29 mmol/L (22-30); Chloride 97 mmol/L (98-107); Estimated CRCL calculation 10 ml/min; Estimated Glomerular Filt Rate 9; Glucose 109 mg/dL (65-110); Sodium 138 mmol/L (137-145)
[2024-09-25 00:21] LABS: Glucose Point of Care 90 mg/dl (65-105)
[2024-09-25] MEDS: CALCIUM GLUC 1,000 MG/NS 50 ML 1,000 MG/50 ML BAG 100 MG IVPB (01:17)
[2024-09-25 01:21] LABS: Glucose Point of Care 88 mg/dl (65-105)
[2024-09-25] MEDS: SODIUM BICARBONATE 8.4% 50 MEQ/50 ML SYRINGE IV PUSH (01:22)
[2024-09-25] MEDS: SODIUM ZIRCONIUM CYCLOSILICATE 10 GM POWD.PACK PO (01:22)
[2024-09-25] MEDS: ALBUMIN HUMAN 25% 25 GM/100 ML 100 ML IVPB (01:54)
[2024-09-25 02:08] LABS: Glucose Point of Care 136 mg/dl (65-105)
[2024-09-25 05:42] LABS: Basophils Percent Auto 0.5 % (0.2-1.2); Eosinophils Percent Auto 0.2 % (0-4.4); Hematocrit 39.6 % (42.0-52.0); Hemoglobin 12.4 g/dL (14.0-18.0); Immature Granulocyte Absolute 0.02 K/mm3 (0.00-0.031); Immature Granulocyte Percent A 0.3 % (0-0.5); Immature Platelet Fraction Pct 6.4 % (0.9-11.2); Lymphocytes Absolute Auto 0.86 K/mm3 (0.9-3.2); Lymphocytes Percent Auto 13.8 % (18.3-44.2); Mean Corpuscular HGB Conc 31.3 g/dl (32-36); Mean Corpuscular Hemoglobin 31.9 pg (26-34); Mean Corpuscular Volume 101.8 fl (80-100); Mean Platelet Volume 11.6 fl (7.4-10.4); Monocytes Absolute Auto 0.7 K/mm3 (0.1-0.6); Monocytes Percent Auto 11.4 % (2.6-8.5); Neutrophils Absolute Auto 4.6 K/mm3 (1.3-6.7); Neutrophils Percent Auto 73.8 % (45.5-73.1); Platelet Count Result 78 k/mm3 (150-375); Red Blood Count 3.89 M/mm3 (4.6-6.20); Red Cell Distribution Width 16.3 % (11.5-14.5); White Blood Count 6.2 K/mm3 (4.5-10.0)
[2024-09-25 05:50] LABS: Hemoglobin A1C 6.7 % (<5.7)
[2024-09-25 05:54] LABS: Alanine Aminotransferase 12 U/L (6-50); Albumin Level 3.6 g/dL (3.5-5.1); Alkaline Phosphatase 110 U/L (38-126); Anion Gap 14 mmol/L (4-12); Aspartate Amino Transferase 19 U/L (17-59); Bilirubin,Total 2.3 mg/dL (0.2-1.3); Blood Urea Nitrogen 47 mg/dL (9-20); Calcium 7.4 mg/dL (8.4-10.2); Carbon Dioxide 31 mmol/L (22-30); Chloride 94 mmol/L (98-107); Estimated CRCL calculation 9 ml/min; Estimated Glomerular Filt Rate 8; Glucose 130 mg/dL (65-110); Magnesium 2.1 mg/dL (1.6-2.3); Phosphorus 4.8 mg/dL (2.5-4.5); Potassium 5.7 mmol/L (3.4-5.0); Sodium 139 mmol/L (137-145)
[2024-09-25 07:52] LABS: Glucose Point of Care 157 mg/dl (65-105)
[2024-09-25] MEDS: ATORVASTATIN 10 MG TABLET PO (08:25)
[2024-09-25] MEDS: SEVELAMER CARBONATE 800 MG TABLET 1600 MG PO ×2 (08:25→18:33)
[2024-09-25] MEDS: allopurinoL 100 MG TABLET PO (08:25)
[2024-09-25] MEDS: APIXABAN 2.5 MG TABLET PO ×2 (08:26→21:22)
[2024-09-25] MEDS: MIDODRINE HCL 10 MG TABLET PO (08:28)
[2024-09-25 08:39] LABS: Hepatitis B Surface Antigen Negative (Negative)
[2024-09-25 08:57] LABS: Hepatitis B Surface Anti Res Negative
--- NOTE | 2024-09-25 09:21 | P.PNIM_ITS ---
Progress Note: A&P Assessment and Plan (1) Chronic hypotension: Code(s): I95.89 - Other hypotension Status: Acute (2) Acute hyperkalemia: Code(s): E87.5 - Hyperkalemia Status: Acute (3) Elevated troponin: Code(s): R79.89 - Other specified abnormal findings of blood chemistry Status: Acute (4) ESRD (end stage renal disease) on dialysis: Code(s): N18.6 - End stage renal disease; Z99.2 - Dependence on renal dialysis Status: Acute (5) Diabetes: Qualifiers: Chronic kidney disease stage: on chronic dialysis Diabetes mellitus complication detail: with chronic kidney disease Diabetes mellitus complication status: with kidney complications Diabetes mellitus half-way insulin use: without half-way use Diabetes mellitus type: type 2 Qualified Code(s): E11.22 - Type 2 diabetes mellitus with diabetic chronic kidney disease; N18.6 - End stage renal disease; Z99.2 - Dependence on renal dialysis Code(s): E11.9 - Type 2 diabetes mellitus without complications Status: Chronic (6) Essential (primary) hypertension: Code(s): I10 - Essential (primary) hypertension Status: Chronic Plan 84 y/o M presents here with general malaise with PMH of ESRD on HD, CHF, AFib on Eliquis, chronic hypotension on midodrine, KEV not on CPAP, and diabetes. The patient presents here from his dialysis center for further evaluation of general malaise. He reports he has a history of ESRD on HD with treatment days on // at [facility] in [place]. Initially, the patient missed his treatment on Friday due to a pipe bursting at his facility. Reports he has had general malaise, cough, diarrhea, fine tremors to his bilateral hands that has been ongoing for 7 days. Today he was only able to complete 3/4 of his dialysis treatment due to feeling unwell - abdominal cramping and nausea, reports they we re able to remove 2L but typically gets 3L off. He denies fever, chills, body aches, congestion, shortness of breath, chest pain, dizziness. Of note, the patient no longer makes urine. No known sick contacts. Initial VS at presentation: 98? F, HR 58, RR 20, 97/64, and 100% on RA. ED workup showed: No leukocytosis, hemoglobin 12.9 (previously 11.3 on 08/04/2024), K 5.5, creatinine 5.93 and GFR 9, lactic 1.7, calcium 7.3, and viral PCR negative. CXR showed stable mild airspace opacities in the mid and lower lung zones likely atelectasis, small right pleural effusion, and cardiomegaly. Initial EKG showed AFib with slow ventricular response, RBBB, consider in serial septal infarct age indeterminate, ST-T-wave abnormality in inferior/lateral leads consider ischemia. When compared to EKG done in July of 2024, heart rate has decreased. Chronic AFib off Coreg due to bradycardia. On apixaban now. Heart rate stable Chronic back pain status post back stimulator. This probably related to his back pain. Advised to see pain management/spine surgeon for further evaluation as an outpatient basis. Chronic hypotension on midodrine: Recently had diarrhea for the past 7 days likely hypotension worsened related to this. Received some fluid bolus and albumin in the ER. Will continue to monitor. Acute hyperkalemia potassium of 5.5 treated with Lokelma. Underwent dialysis today. Recheck in a.m. Elevated troponin flat trend mildly elevated likely due to underlying renal disease. Thrombocytopenia mild chronic Congestive heart failure chronic diastolic well compensated End-stage renal disease on hemodialysis inpatient hemodialysis per nephrology Chronic anemia with no obvious bleeding. Type 2 diabetes: SSI DVT prophylaxis on apixaban Code status full code Small pressure wound, less than 1 cm to buttocks. Wound during consulted. No signs of infection. Subjective Date/time seen: 09/25/24 09:21 Interval history: Feels okay. Underwent dialysis today. States legs feels cold Review of Systems Review of Systems: All systems reviewed & are unremarkable except as noted in HPI and below Exam Narrative: GENERAL: Chronically ill not in acute distress awake and alert HEAD: [Normocephalic, atraumatic.] EYES: [PERRLA and EOMI.] ENT: Nares clear, no rhinorrhea or epistaxis. Mucous membranes moist. NECK: Supple. CHEST: [Clear to auscultation. No respiratory distress.] HEART: [Regular rate and rhythm]. No murmur heard. [Normal peripheral pulses.] ABDOMEN: Protuberant, soft, [nontender], [No rigidity or guarding] EXTREMITIES: Normal range of motion. 1+ edema to the extremities SKIN: Cool bilateral lower extremities which patient states is chronic, some thickening of the skin without any overlying cellulitis or ulceration NEURO: [No focal deficits]. Alert and oriented [x3.] PSYCH: [Normal mood and affect.] Objective Data Vital Signs Vital Signs: Vital Signs - 24 hr 09/24/24 10:25 09/24/24 12:47 09/24/24 15:01 Temperature 98.0 F 98.4 F Pulse Rate 58 L 62 63 Respiratory Rate 20 19 15 Blood Pressure 97/64 L 99/64 L Pulse Oximetry 100 96 Oxygen Delivery Room Air 09/24/24 15:02 09/24/24 15:03 09/24/24 15:05 Temperature Pulse Rate 64 64 59 L Respiratory Rate 15 17 17 Blood Pressure 161/113 H 96/65 L Pulse Oximetry 96 Oxygen Delivery 09/24/24 15:15 09/24/24 15:16 09/24/24 15:30 Temperature Pulse Rate 64 64 68 Respiratory Rate 17 16 20 Blood Pressure 97/61 L 94/83 L Pulse Oximetry Oxygen Delivery 09/24/24 15:31 09/24/24 15:45 09/24/24 15:46 Temperature Pulse Rate 65 55 L 53 L Respiratory Rate 17 13 12 Blood Pressure 90/56 L Pulse Oximetry Oxygen Delivery 09/24/24 16:00 09/24/24 16:01 09/24/24 16:15 Temperature Pulse Rate 59 L 59 L 59 L Respiratory Rate 17 13 19 Blood Pressure 102/61 Pulse Oximetry Oxygen Delivery 09/24/24 17:30 09/24/24 18:00 09/24/24 18:18 Temperature 98.2 F Pulse Rate 59 L 69 Respiratory Rate 20 Blood Pressure 84/47 L Pulse Oximetry 96 Oxygen Delivery Room Air 09/24/24 20:00 09/24/24 20:00 09/24/24 20:55 Temperature 97.5 F L Pulse Rate 60 60 Respiratory Rate 18 Blood Pressure 84/53 L Pulse Oximetry 91 91 Oxygen Delivery Autopap 09/24/24 20:55 09/24/24 21:07 09/24/24 21:10 Temperature Pulse Rate 71 74 60 Respiratory Rate 18 18 18 Blood Pressure Pulse Oximetry 91 Oxygen Delivery Room Air 09/24/24 22:00 09/25/24 00:00 02/22/25 00:00 Temperature 97.8 F Pulse Rate 61 62 61 Respiratory Rate 20 Blood Pressure 82/54 L Pulse Oximetry 99 Oxygen Delivery 09/25/24 00:07 09/25/24 02:00 09/25/24 04:00 Temperature 97.8 F Pulse Rate 62 65 67 Respiratory Rate 20 20 Blood Pressure 93/52 L Pulse Oximetry 99 100 Oxygen Delivery Room Air 09/25/24 04:00 09/25/24 04:00 09/25/24 05:39 Temperature Pulse Rate 67 75 66 Respiratory Rate 20 Blood Pressure Pulse Oximetry 100 Oxygen Delivery Room Air 09/25/24 08:21 Temperature 97.5 F L Pulse Rate 65 Respiratory Rate 20 Blood Pressure 89/78 L Pulse Oximetry 92 Oxygen Delivery Intake/Output Intake/Output: Intake & Output 09/22/24 09/23/24 09/24/24 09/25/24 23:59 23:59 23:59 23:59 Intake Total 200 370 Output Total 0 0 Balance 200 370 Meds/Results Medications: Active Medications Generic Name Dose Route Start Last Admin Trade Name Freq PRN Reason Stop Dose Admin Acetaminophen 650 mg 09/24/24 19:07 Acetaminophen 325 Mg Tablet PO Q6H PRN Mild Pain (1-3) Or Fever Albuterol 2 puff 09/24/24 19:07 Albuterol Sulfate (*Sp) Aerosol 1 Puff INHALATION Q6H PRN sob/wheezing Allopurinol 100 mg 09/25/24 09:00 09/25/24 08:25 Allopurinol 100 Mg Tablet PO 100 mg DAILY CESAR Administration Apixaban 2.5 mg 09/24/24 21:00 09/25/24 08:26 Apixaban 2.5 Mg Tablet PO 2.5 mg Q12HR CESAR Administration Atorvastatin Calcium 10 mg 09/25/24 09:00 09/25/24 08:25 Atorvastatin 10 Mg Tablet PO 10 mg DAILY CESAR Administration Benzonatate 200 mg 09/25/24 09:00 Benzonatate 100 Mg Capsule PO TID PRN Cough Bumetanide 1 mg 09/24/24 19:20 09/24/24 21:59 Bumetanide 1 Mg Tablet PO Not Given BID CESAR Dextrose 12.5 gm 09/24/24 16:08 Dextrose 50% 25 Gm/50 Ml Syringe IV PUSH PRN PRN Hypoglycemia Protocol Glucagon 1 mg 09/24/24 16:08 Glucagon For Inj 1 Mg Vial IM PRN PRN Hypoglycemia Protocol Glucose 15 gm 09/24/24 16:08 Glucose Oral Gel 15 Gm Of Glucse In 37.5 Gm Tube PO PRN PRN Hypoglycemia Protocol Dextrose 1,000 mls @ 100 mls/hr 09/24/24 16:08 Dextrose 5% 1,000 Ml IVPB PRN PRN Hypoglycemia Protocol Albumin Human 50 mls @ 999 mls/hr 09/25/24 07:28 Albutein IVPB 09/26/24 07:27 Q10M PRN HYPOTENSION Insulin Aspart 2 - 5 units 09/24/24 17:00 09/25/24 08:07 Insulin Aspart (*Bkc) 100 Units/Ml SUB-Q Not Given [facility] Protocol Loperamide HCl 2 mg 09/24/24 18:40 Loperamide Hcl 2 Mg Capsule PO PRN PRN Diarrhea Midodrine 10 mg 09/24/24 19:07 09/25/24 08:28 Midodrine Hcl 10 Mg Tablet PO 10 mg WITH DIALYSIS PRN Administration hypotension with dialysis Midodrine 10 mg 09/24/24 19:08 Midodrine Hcl 2.5 Mg Tablet PO TID PRN Hypotension BP less than 90/50 Ondansetron HCl 4 mg 09/24/24 15:31 09/24/24 23:27 Ondansetron Inj 4 Mg/2 Ml Vial IV PUSH 4 mg Q4H PRN Administration Nausea Fluticasone/Salmeterol 2 puff 09/24/24 20:00 09/24/24 20:53 Fluticasone/Salmeterol 115-21 Mcg Inhaler 1 Puff INHALATION 2 puff Q12HRT CESAR Administration Sevelamer Carbonate 1,600 mg 09/25/24 08:00 09/25/24 08:25 Sevelamer Carbonate 800 Mg Tablet PO 1,600 mg TIDWM CESAR Administration Tramadol HCl 50 mg 09/24/24 19:07 Tramadol Hcl (*Crx) 50 Mg Tablet PO Q8H PRN PAIN RATED 4-6 Radiology Results: ITS Impressions Chest X-Ray 09/24/24 14:14 IMPRESSION: 1. Stable mild airspace opacities in the mid and lower lung zones, likely atelectasis. 2. Small right pleural effusion. 3. Cardiomegaly. Labs Labs: Laboratory Results - last 24 hr 09/24/24 09/24/24 09/24/24 13:36 14:14 15:17 WBC 6.1 RBC 4.08 L Hgb 12.9 L Hct 40.5 L MCV 99.3 MCH 31.6 MCHC 31.9 L RDW 16.1 H Plt Count 85 L MPV 11.7 H Immature Gran % (Auto) 0.3 Neut % (Auto) 72.8 Lymph % (Auto) 14.1 L Kern % (Auto) 11.6 H Eos % (Auto) 0.5 Baso % (Auto) 0.7 Lymph # (Auto) 0.86 L Kern # (Auto) 0.7 H Eos # (Auto) 0.0 Baso # (Auto) 0.0 Abs Immat Gran (auto) 0.02 Absolute Neuts (auto) 4.4 Absolute Nucleated RBC 0.000 Nucleated RBC % 0.0 % Immature Plt Fraction 5.4 Sodium 139 Potassium 5.5 H Chloride 95 L Carbon Dioxide 33 H Anion Gap 11 BUN 41 H D Creatinine 5.93 H Estim Creat Clear Calc Not Reportable Estimated GFR 9 L Glucose 112 H POC Capillary Glucose Hemoglobin A1c Lactic Acid 1.7 Calcium 7.3 L Phosphorus Magnesium 2.1 Total Bilirubin 2.0 H AST 21 ALT 13 Alkaline Phosphatase 132 H Troponin I 0.051 H* 0.053 H* Total Protein 8.0 Albumin 3.5 Hep Bs Antigen Hep Bs Antibody Influenza A (RT-PCR) Negative Influenza B (RT-PCR) Negative RSV (RT-PCR) Negative SARS-CoV-2 RNA (RT-PCR) Negative 09/24/24 09/24/24 09/24/24 18:31 18:43 18:50 WBC RBC Hgb Hct MCV MCH MCHC RDW Plt Count MPV Immature Gran % (Auto) Neut % (Auto) Lymph % (Auto) Kern % (Auto) Eos % (Auto) Baso % (Auto) Lymph # (Auto) Kern # (Auto) Eos # (Auto) Baso # (Auto) Abs Immat Gran (auto) Absolute Neuts (auto) Absolute Nucleated RBC Nucleated RBC % % Immature Plt Fraction Sodium 137 Potassium 5.6 H Chloride 94 L Carbon Dioxide 31 H Anion Gap 12 BUN 40 H Creatinine 6.40 H Estim Creat Clear Calc 10 Estimated GFR 8 L Glucose 169 H POC Capillary Glucose 160 H Hemoglobin A1c Lactic Acid Calcium 7.2 L Phosphorus Magnesium Total Bilirubin AST ALT Alkaline Phosphatase Troponin I 0.045 H* Total Protein Albumin Hep Bs Antigen Hep Bs Antibody Influenza A (RT-PCR) Influenza B (RT-PCR) RSV (RT-PCR) SARS-CoV-2 RNA (RT-PCR) 09/24/24 09/24/24 09/24/24 19:58 23:02 23:44 WBC RBC Hgb Hct MCV MCH MCHC RDW Plt Count MPV Immature Gran % (Auto) Neut % (Auto) Lymph % (Auto) Kern % (Auto) Eos % (Auto) Baso % (Auto) Lymph # (Auto) Kern # (Auto) Eos # (Auto) Baso # (Auto) Abs Immat Gran (auto) Absolute Neuts (auto) Absolute Nucleated RBC Nucleated RBC % % Immature Plt Fraction Sodium 138 Potassium 6.0 H* Chloride 97 L Carbon Dioxide 29 Anion Gap 12 BUN 49 H Creatinine 6.29 H Estim Creat Clear Calc 10 Estimated GFR 9 L Glucose 109 POC Capillary Glucose 264 H 142 H Hemoglobin A1c Lactic Acid Calcium 7.2 L Phosphorus Magnesium Total Bilirubin AST ALT Alkaline Phosphatase Troponin I Total Protein Albumin Hep Bs Antigen Hep Bs Antibody Influenza A (RT-PCR) Influenza B (RT-PCR) RSV (RT-PCR) SARS-CoV-2 RNA (RT-PCR) 09/25/24 09/25/24 09/25/24 00:06 01:17 02:05 WBC RBC Hgb Hct MCV MCH MCHC RDW Plt Count MPV Immature Gran % (Auto) Neut % (Auto) Lymph % (Auto) Kern % (Auto) Eos % (Auto) Baso % (Auto) Lymph # (Auto) Kern # (Auto) Eos # (Auto) Baso # (Auto) Abs Immat Gran (auto) Absolute Neuts (auto) Absolute Nucleated RBC Nucleated RBC % % Immature Plt Fraction Sodium Potassium Chloride Carbon Dioxide Anion Gap BUN Creatinine Estim Creat Clear Calc Estimated GFR Glucose POC Capillary Glucose 90 88 136 H Hemoglobin A1c Lactic Acid Calcium Phosphorus Magnesium Total Bilirubin AST ALT Alkaline Phosphatase Troponin I Total Protein Albumin Hep Bs Antigen Hep Bs Antibody Influenza A (RT-PCR) Influenza B (RT-PCR) RSV (RT-PCR) SARS-CoV-2 RNA (RT-PCR) 09/25/24 09/25/24 04:29 07:26 WBC 6.2 RBC 3.89 L Hgb 12.4 L Hct 39.6 L MCV 101.8 H MCH 31.9 MCHC 31.3 L RDW 16.3 H Plt Count 78 L MPV 11.6 H Immature Gran % (Auto) 0.3 Neut % (Auto) 73.8 H Lymph % (Auto) 13.8 L Kern % (Auto) 11.4 H Eos % (Auto) 0.2 Baso % (Auto) 0.5 Lymph # (Auto) 0.86 L Kern # (Auto) 0.7 H Eos # (Auto) 0.0 Baso # (Auto) 0.0 Abs Immat Gran (auto) 0.02 Absolute Neuts (auto) 4.6 Absolute Nucleated RBC 0.000 Nucleated RBC % 0.0 % Immature Plt Fraction 6.4 Sodium 139 Potassium 5.7 H Chloride 94 L Carbon Dioxide 31 H Anion Gap 14 H BUN 47 H Creatinine 6.99 H Estim Creat Clear Calc 9 Estimated GFR 8 L Glucose 130 H POC Capillary Glucose 157 H Hemoglobin A1c 6.7 H Lactic Acid Calcium 7.4 L Phosphorus 4.8 H Magnesium 2.1 Total Bilirubin 2.3 H AST 19 ALT 12 Alkaline Phosphatase 110 Troponin I Total Protein 7.0 Albumin 3.6 Hep Bs Antigen Negative Hep Bs Antibody Negative Influenza A (RT-PCR) Influenza B (RT-PCR) RSV (RT-PCR) SARS-CoV-2 RNA (RT-PCR)
[2024-09-25] MEDS: ALBUMIN HUMAN 25% 12.5 GM/50ML 50 ML IVPB ×2 (09:45→10:45)
[2024-09-25] MEDS: ACETAMINOPHEN 325 MG TABLET 650 MG PO (10:30)
[2024-09-25] MEDS: MIDODRINE HCL 2.5 MG TABLET 10 MG PO (11:47)
[2024-09-25 14:09] LABS: Glucose Point of Care 127 mg/dl (65-105)
--- NOTE | 2024-09-25 16:23 | P.CONNP_ITS ---
Assessment and Plan Assessment and plan (1) End-stage renal disease (ESRD): Code(s): N18.6 - End stage renal disease Status: Chronic Assessment and Plan: * HD today due to hyperkalemia (and due to missed treatment on Friday and partial treatment on Friday) * resume Fri/Fri/Friday dialysis schedule next week while hospitalized * follow electrolytes, volume status, and clearance (2) Hyperkalemia: Code(s): E87.5 - Hyperkalemia Status: Resolved Assessment and Plan: * as noted on admission labs and today * should correct with dialysis today * follow trend (3) Hypotension: Code(s): I95.9 - Hypotension, unspecified Status: Chronic Assessment and Plan: * chronic issue at baseline * on midodrine therapy * follow trend of hemodynamics (4) Anemia: Qualifiers: Anemia type: unspecified type Qualified Code(s): D64.9 - Anemia, unspecified Code(s): D64.9 - Anemia, unspecified Status: Chronic Assessment and Plan: * due to ESRD * hold Retacrit since Hgb > 10 * follow trend of H/H (5) Malaise: Code(s): R53.81 - Other malaise Status: Acute Assessment and Plan: * as noted on presentation to ER * viral testing in ER negative for influenza, RSV, and COVID * PT/OT as tolerated (6) Diabetes: Qualifiers: Chronic kidney disease stage: on chronic dialysis Diabetes mellitus complication detail: with chronic kidney disease Diabetes mellitus complication status: with kidney complications Diabetes mellitus termite inspector insulin use: w [facility] use Diabetes mellitus type: type 2 Qualified Code(s): E11.22 - Type 2 diabetes mellitus with diabetic chronic kidney disease; N18.6 - End stage renal disease; Z99.2 - Dependence on renal dialysis Code(s): E11.9 - Type 2 diabetes mellitus without complications Status: Chronic Assessment and Plan: * follow accu-cheks * glycemic control per hospitalists I will continue follow the patient with you while he remains hospitalized and make further recommendations as needed. Thank you for allowing me to participate in the care of this patient. L History of Present Illness Reason for Consult Consult date: 09/25/24 Reason for consult: end stage renal disease Chief Complaint Chief complaint: hyperkalemia,elevated troponin,missed partial dial History of Present Illness Narrative: The patient is 84-year-old male a past medical history as outlined who presented to [facility] from his dialysis center due to generalized malaise, weakness, abdominal pain, and just not feeling well. The patient presented to his outpatient dialysis center yesterday morning as scheduled for his normal dialysis treatment. He was initiated on dialysis but only completed about 3 hours of his treatment before ending his treatment due to not feeling well. Specifically, he reported some abdominal cramping and nausea. On further questioning, he reports on and off cough, intermittent diarrhea, and fine tremors to his hands that have been going on for the past week as well. He gave no other complaints with regard to fever, chills, body aches, congestion, shortness of breath, chest pain, dizziness, palpitations, or headache. It should also be noted that he was unable get his dialysis treatment on Friday of this week due to a water leakage but he did receive his dialysis treatment on Friday and, as already mentioned, a partial treatment yesterday as well. Workup and evaluation emergency room demonstrated the patient to be afebrile and hemodynamically stable although he does run chronically low blood pressure readings at baseline usually in the 90 systolic. Routine blood work demonstrated a normal white blood cell count, a hemoglobin above the range for his end-stage renal disease status, and a chemistry panel consistent with his known history of end-stage renal disease although his potassium was mildly elevated. His chest x-ray demonstrated stable mild airspace opacities in the mid and lower lung zones likely atelectasis, small right pleural effusion, and cardiomegaly. His EKG showed atrial fibrillation with slow ventricular response. Viral testing for COVID, influenza, and RSV were negative. Given his constellation symptoms as complex medical history, he was admitted to the hospital for further evaluation therapy. Since his arrival to the ER and subsequent admission, a great majority of his admission symptoms have resolved aside from some mild back discomfort (due to small buttock pressure wound?). overnight, he has had issues with hyperkalemia requiring medical management and his a.m. labs also show an elevated potassium level as well. Renal consultation was requested due to his end stage renal disease. The patient is quite familiar to me as I take care of his outpatient dialysis needs. He normally dialyzes on a Friday, Friday, Friday dialysis schedule at [facility] under my care. His history with regard to kidney disease is somewhat complicated. In July of 2023 he was initiated on renal replacement therapy/dialysis for better control of his fluid status as he had evidence of diuretic resistance during his acute hospitalization at that time. His fluid and overall volume status improved on dialysis but then his last labs in late September 2023 demonstrated evidence of renal recovery. A subsequent 24 hour urine collection demonstrated that he had reasonable renal function as well as urine output so dialysis was discontinued. However, then, he was hospitalized again in December of 2023 for a similar presentation of fluid overload/anasarca resistant to IV diuretic therapy. He was once again reinstituted on renal replacement therapy/dialysis with the assumption that he requires dialysis to maintain his fluid status as diuretics alone are unable to maintain euvolemia. He has been dialysis dependent since that time but this has resulted in improved stability in his swelling/edema/fluid status. As already mentioned, he received a partial dialysis treatment yesterday prior to being sent to the ER for for his above complaints. Currently, at the time my visit, he does not appear to be any acute distress and the case was discussed with his at bedside. He was also seen earlier today while getting his dialysis treatment (he was seen on HD at 12:45PM). Review of Systems 2 Review of Systems: As per HPI. [facility] Past Medical History Medical History Shingles Benign prostatic hyperplasia Vitamin D deficiency Secondary renal hyperparathyroidism Chronic anticoagulation Atrial fibrillation with slow ventricular response Pulmonary hypertension Congestive heart failure 07/2024: Hyperdynamic systolic function, estimated EF 70%, severely dilated right ventricle. Gout Sleep apnea intolerant of CPAP End-stage renal disease on hemodialysis Anemia of chronic disease Umbilical hernia Iron deficiency anemia B12 deficiency anemia Essential (primary) hypertension Mixed hyperlipidemia Type 2 diabetes mellitus with diabetic neuropathy Surgical History Surgical History Status post insertion of spinal cord stimulator History of cataract extraction with lens replacement History of bilateral knee arthroplasty Normal colonoscopy (~2007) Family History Family History Father Cerebrovascular accident Mother Hypertension Sibling Hypertension Other Kidney disease, chronic, end stage on dialysis Social History Social History Social History: Surrogate medical decision maker: Kathy Yanez, spouse. Code status: Full code. Smoking packs per day: 0.5 Smoking cigarettes per day: 10.0 Years smoked: 5 Smoking pack-years: 2.50 Smoking status: Former smoker Second hand tobacco smoke exposure: Yes Alcohol intake: never Substance use: never Substance use type: unknown Do You Feel Safe in your Home?: Yes Lack of Transportation: No Lack of Food: Never True Current Housing: I Have Housing Concerned About Future Housing: No Difficulty Paying Gas/Electric Bills: No Difficulty Paying for Meds: No Currently Unemployed: No Education: Bachelor's Degree Difficulty w/ Childcare or Family Care: No Living arrangements: with family Additional living arrangements comments: Lives with spouse of nearly 60 years. They have a son and daughter. Occupation/Education: retired Additional occupation/education comments: Retired from working with [employer]. Spiritual care concerns: No Meds Home Medications and Allergies Home Medications ?Medication ?Instructions ?Recorded ?Confirmed ?Type atorvastatin 10 mg tablet 10 mg PO DAILY #90 tabs 02/23/24 09/24/24 Rx apixaban 2.5 mg tablet (Eliquis) 2.5 mg PO Q12HR #180 tabs 03/12/24 09/24/24 Rx allopurinol 100 mg tablet 100 mg PO DAILY #90 tabs 03/31/24 09/24/24 Rx bumetanide 1 mg tablet 1 mg PO BID #60 tabs 06/16/24 09/24/24 Rx albuterol sulfate 90 mcg/actuation 2 puff inhalation Q6H PRN 07/12/24 09/24/24 History aerosol inhaler sob/wheezing acetaminophen 325 mg tablet 650 mg (2 x 325 mg) PO Q6H PRN 07/17/24 09/24/24 Rx Mild Pain (1-3) Or Fever #30 tabs fluticasone 250 mcg-salmeterol 50 1 inh inhalation Q12H 07/21/24 09/24/24 History mcg/dose blistr powdr for inhalation (Advair Diskus) tramadol 50 mg tablet 50 mg PO Q8H PRN pain #90 tabs 01/20/25 02/21/25 Rx benzonatate 100 mg capsule See Rx Instructions .Route 09/13/24 09/24/24 Rx .COMPLEX #60 caps carvedilol 6.25 mg tablet 6.25 mg PO Q12H 09/24/24 09/24/24 History midodrine 10 mg tablet 10 mg PO WITH DIALYSIS PRN 09/24/24 09/24/24 Rx hypotension with dialysis #12 tabs sevelamer carbonate 800 mg tablet 1,600 mg PO TIDWM 09/24/24 09/24/24 History (Renvela) Allergies Allergy/AdvReac Type Severity Reaction Status Date / Time No Known Allergies Allergy Verified 09/02/24 12:57 Vital Signs Vital Signs Temp Pulse Resp BP Pulse Ox O2 Del Method 09/25/24 12:00 98.1 F 62 24 H 92/61 L 96 09/25/24 08:21 97.5 F L 65 20 89/78 L 92 09/25/24 05:39 66 09/25/24 04:00 75 09/25/24 04:00 67 20 100 Room Air 09/25/24 04:00 97.8 F 67 20 93/52 L 100 09/25/24 02:00 65 09/25/24 00:07 62 20 99 Room Air 09/25/24 00:00 61 09/25/24 00:00 97.8 F 62 20 82/54 L 99 09/24/24 22:00 61 09/24/24 21:10 60 18 91 Room Air 09/24/24 21:07 74 18 09/24/24 20:55 71 18 09/24/24 20:55 91 Autopap 09/24/24 20:00 60 09/24/24 20:00 97.5 F L 60 18 84/53 L 91 09/24/24 18:18 98.2 F 69 20 84/47 L 96 09/24/24 18:00 59 L 09/24/24 17:30 Room Air Exam 2 Narrative: GENERAL APPEARANCE: elderly male in no acute distress HEENT: normocephalic, atraumatic, normal conjunctiva and sclera, nares patient NECK: no lymphadenopathy, thyromegaly, or JVD MOUTH: normal lips, teeth, and gums CARDIOVASCULAR: RRR, normal S1 and S2, no rub detected RESPIRATORY: clear anteriorly; decreased at baseline ABDOMEN: soft, nontender, nondistended, positive bowel sounds present EXTREMITIES: no evidence of cyanosis, clubbing, 1+ edema NEUROLOGICAL: awake and alert; no focal deficits noted Results Lab Results 09/27/24 07:18 09/27/24 07:18 Lab results: Most recent lab results Calcium 7.4 mg/dL (8.4-10.2) L 09/25/24 04:29 Phosphorus 4.8 mg/dL (2.5-4.5) H 09/25/24 04:29 Magnesium 2.1 mg/dL (1.6-2.3) 09/25/24 04:29
[2024-09-25 16:40] LABS: Glucose Point of Care 164 mg/dl (65-105)
[2024-09-25] MEDS: FLUTICASONE/SALMETEROL 115-21 MCG INHALER 1 PUFF 2 PUFF INHALATION (20:23)
[2024-09-25 20:36] LABS: Glucose Point of Care 185 mg/dl (65-105)
[2024-09-26] VITALS (14 sets, daily range): BP systolic 92–111; BP diastolic 49–74; PULSE 60–84; RESP 16–20; TEMP 36.3–36.9; O2SAT 91–95
[2024-09-26 04:23] LABS: Basophils Absolute Auto 0.1 K/mm3 (0.0-0.1); Basophils Percent Auto 0.9 % (0.2-1.2); Eosinophils Percent Auto 0.7 % (0-4.4); Hematocrit 42.1 % (42.0-52.0); Hemoglobin 12.8 g/dL (14.0-18.0); Immature Granulocyte Absolute 0.03 K/mm3 (0.00-0.031); Immature Granulocyte Percent A 0.5 % (0-0.5); Lymphocytes Absolute Auto 0.91 K/mm3 (0.9-3.2); Lymphocytes Percent Auto 15.8 % (18.3-44.2); Mean Corpuscular HGB Conc 30.4 g/dl (32-36); Mean Corpuscular Hemoglobin 31.1 pg (26-34); Mean Corpuscular Volume 102.2 fl (80-100); Mean Platelet Volume 11.3 fl (7.4-10.4); Monocytes Absolute Auto 0.8 K/mm3 (0.1-0.6); Monocytes Percent Auto 13.4 % (2.6-8.5); Neutrophils Percent Auto 68.7 % (45.5-73.1); Platelet Count Result 89 k/mm3 (150-375); Red Blood Count 4.12 M/mm3 (4.6-6.20); Red Cell Distribution Width 16.2 % (11.5-14.5); White Blood Count 5.8 K/mm3 (4.5-10.0)
[2024-09-26 04:46] LABS: Alanine Aminotransferase 10 U/L (6-50); Albumin Level 3.6 g/dL (3.5-5.1); Alkaline Phosphatase 110 U/L (38-126); Anion Gap 14 mmol/L (4-12); Aspartate Amino Transferase 21 U/L (17-59); Blood Urea Nitrogen 29 mg/dL (9-20); Calcium 7.5 mg/dL (8.4-10.2); Carbon Dioxide 23 mmol/L (22-30); Chloride 99 mmol/L (98-107); Estimated CRCL calculation 12 ml/min; Estimated Glomerular Filt Rate 11; Glucose 141 mg/dL (65-110); Potassium 4.6 mmol/L (3.4-5.0); Sodium 136 mmol/L (137-145)
[2024-09-26 04:57] LABS: Anisocytosis 1+; Burr Cells 1+; Ovalocytes 1+; Platelet Estimate Decreased (Adequate); Schistocytes None Seen
[2024-09-26] MEDS: FLUTICASONE/SALMETEROL 115-21 MCG INHALER 1 PUFF 2 PUFF INHALATION ×2 (07:17→19:41)
[2024-09-26 07:22] LABS: Glucose Point of Care 142 mg/dl (65-105)
[2024-09-26] MEDS: ATORVASTATIN 10 MG TABLET PO (08:54)
[2024-09-26] MEDS: APIXABAN 2.5 MG TABLET PO ×2 (08:54→20:55)
[2024-09-26] MEDS: BUMETANIDE 1 MG TABLET PO ×2 (08:54→17:05)
[2024-09-26] MEDS: allopurinoL 100 MG TABLET PO (08:55)
[2024-09-26] MEDS: SEVELAMER CARBONATE 800 MG TABLET 1600 MG PO ×3 (08:55→17:05)
[2024-09-26 11:23] LABS: Glucose Point of Care 262 mg/dl (65-105)
--- NOTE | 2024-09-26 11:46 | P.PNIM_ITS ---
Progress Note: A&P Assessment and Plan (1) Chronic hypotension: Code(s): I95.89 - Other hypotension Status: Acute (2) Acute hyperkalemia: Code(s): E87.5 - Hyperkalemia Status: Acute (3) Elevated troponin: Code(s): R79.89 - Other specified abnormal findings of blood chemistry Status: Acute (4) ESRD (end stage renal disease) on dialysis: Code(s): N18.6 - End stage renal disease; Z99.2 - Dependence on renal dialysis Status: Acute (5) Diabetes: Qualifiers: Diabetes mellitus type: type 2 Diabetes mellitus fci insulin use: without fci use Diabetes mellitus complication status: with kidney complications Diabetes mellitus complication detail: with chronic kidney disease Chronic kidney disease stage: on chronic dialysis Qualified Code(s): E11.22 - Type 2 diabetes mellitus with diabetic chronic kidney disease; N18.6 - End stage renal disease; Z99.2 - Dependence on renal dialysis Code(s): E11.9 - Type 2 diabetes mellitus without complications Status: Chronic (6) Essential (primary) hypertension: Code(s): I10 - Essential (primary) hypertension Status: Chronic Plan 84 y/o M presents here with general malaise with PMH of ESRD on HD, CHF, AFib on Eliquis, chronic hypotension on midodrine, KEV not on CPAP, and diabetes. The patient presents here from his dialysis center for further evaluation of general malaise. He reports he has a history of ESRD on HD with treatment days on // at [facility] in [place]. Initially, the patient missed his treatment on Friday due to a pipe bursting at his facility. Reports he has had general malaise, cough, diarrhea, fine tremors to his bilateral hands that has been ongoing for 7 days. Today he was only able to complete 3/4 of his dialysis treatment due to feeling unwell - abdominal cramping and nausea, reports they we re able to remove 2L but typically gets 3L off. He denies fever, chills, body aches, congestion, shortness of breath, chest pain, dizziness. Of note, the patient no longer makes urine. No known sick contacts. Initial VS at presentation: 98? F, HR 58, RR 20, 97/64, and 100% on RA. ED workup showed: No leukocytosis, hemoglobin 12.9 (previously 11.3 on 08/04/2024), K 5.5, creatinine 5.93 and GFR 9, lactic 1.7, calcium 7.3, and viral PCR negative. CXR showed stable mild airspace opacities in the mid and lower lung zones likely atelectasis, small right pleural effusion, and cardiomegaly. Initial EKG showed AFib with slow ventricular response, RBBB, consider in serial septal infarct age indeterminate, ST-T-wave abnormality in inferior/lateral leads consider ischemia. When compared to EKG done in July of 2024, heart rate has decreased. Chronic AFib off Coreg due to bradycardia. On apixaban now. Heart rate stable Chronic back pain status post back stimulator. This probably related to his back pain. Advised to see pain management/spine surgeon for further evaluation as an outpatient basis. Chronic hypotension on midodrine: Recently had diarrhea for the past 7 days likely hypotension worsened related to this. Received some fluid bolus and albumin in the ER. Will continue to monitor. Possible right leg cellulitis color as well as arterial Doppler sent which is pending. Acute hyperkalemia potassium of 5.5 treated with Lokelma. Underwent dialysis extra 09/25/2024.-normalized Elevated troponin flat trend mildly elevated likely due to underlying renal disease. Thrombocytopenia mild chronic Congestive heart failure chronic diastolic well compensated End-stage renal disease on hemodialysis inpatient hemodialysis per nephrology Chronic anemia with no obvious bleeding. Type 2 diabetes: SSI DVT prophylaxis on apixaban Code status full code Small pressure wound, less than 1 cm to buttocks. Wound during consulted. No signs of infection. Subjective Date/time seen: 09/26/24 11:46 Interval history: Right leg pain sure long this has been hurting. Patient is a poor historian. Denies any other problems. Review of Systems Review of Systems: All systems reviewed & are unremarkable except as noted in HPI and below Exam Narrative: GENERAL: Chronically ill not in acute distress awake and alert HEAD: [Normocephalic, atraumatic.] EYES: [PERRLA and EOMI.] ENT: Nares clear, no rhinorrhea or epistaxis. Mucous membranes moist. NECK: Supple. CHEST: [Clear to auscultation. No respiratory distress.] HEART: [Regular rate and rhythm]. No murmur heard. [Normal peripheral pulses.] ABDOMEN: Protuberant, soft, [nontender], [No rigidity or guarding] EXTREMITIES: Normal range of motion. 1+ edema to the extremities SKIN: Cool bilateral lower extremities which patient states is chronic, some thickening of the skin without any overlying cellulitis or ulceration right leg feels a bit warm and darker NEURO: [No focal deficits]. Alert and oriented [x3.] PSYCH: [Normal mood and affect.] Objective Data Vital Signs Vital Signs: Vital Signs - 24 hr 09/25/24 12:00 09/25/24 12:00 09/25/24 12:00 Temperature 98.1 F Pulse Rate 62 68 70 Respiratory Rate 24 H Blood Pressure 92/61 L 106/75 Pulse Oximetry 96 Oxygen Delivery Fraction of Inspired Oxygen 09/25/24 12:15 09/25/24 12:30 09/25/24 12:45 Temperature Pulse Rate 75 75 68 Respiratory Rate Blood Pressure 114/68 111/71 106/69 Pulse Oximetry Oxygen Delivery Fraction of Inspired Oxygen 09/25/24 13:00 09/25/24 13:12 09/25/24 13:16 Temperature 97.7 F Pulse Rate 82 59 L 69 Respiratory Rate 17 Blood Pressure 113/75 113/73 125/82 Pulse Oximetry Oxygen Delivery Fraction of Inspired Oxygen 09/25/24 16:00 09/25/24 20:00 09/25/24 20:00 Temperature 98.0 F 98 F Pulse Rate 61 61 64 Respiratory Rate 20 20 Blood Pressure 103/56 L 91/55 L Pulse Oximetry 92 97 Oxygen Delivery Fraction of Inspired Oxygen 09/25/24 20:23 09/25/24 21:10 09/25/24 22:00 Temperature Pulse Rate 62 61 59 L Respiratory Rate 20 Blood Pressure Pulse Oximetry 92 97 Oxygen Delivery Room Air Room Air Fraction of Inspired Oxygen 21 09/26/24 00:00 09/26/24 00:00 09/26/24 00:15 Temperature 98 F Pulse Rate 84 62 84 Respiratory Rate 20 20 Blood Pressure 92/53 L Pulse Oximetry 93 93 Oxygen Delivery Room Air Fraction of Inspired Oxygen 09/26/24 01:11 09/26/24 02:00 09/26/24 04:00 Temperature 98 F Pulse Rate 76 61 63 Respiratory Rate 20 Blood Pressure 98/66 L Pulse Oximetry 92 Oxygen Delivery Fraction of Inspired Oxygen 09/26/24 04:00 09/26/24 05:20 09/26/24 06:00 Temperature Pulse Rate 65 63 67 Respiratory Rate 20 Blood Pressure Pulse Oximetry 92 Oxygen Delivery Room Air Fraction of Inspired Oxygen 09/26/24 07:30 09/26/24 07:30 09/26/24 08:00 Temperature Pulse Rate 72 72 74 Respiratory Rate 18 18 Blood Pressure Pulse Oximetry 94 Oxygen Delivery Room Air Fraction of Inspired Oxygen 09/26/24 08:16 09/26/24 10:00 Temperature 97.4 F L Pulse Rate 84 60 Respiratory Rate 16 Blood Pressure 99/49 L Pulse Oximetry 95 Oxygen Delivery Fraction of Inspired Oxygen Intake/Output Intake/Output: Intake & Output 09/23/24 09/24/24 09/25/24 09/26/24 23:59 23:59 23:59 23:59 Intake Total 200 1200 490 Output Total 0 1000 Balance 200 200 490 Meds/Results Medications: Active Medications Generic Name Dose Route Start Last Admin Trade Name Freq PRN Reason Stop Dose Admin Acetaminophen 650 mg 09/24/24 19:07 09/25/24 10:30 Acetaminophen 325 Mg Tablet PO 650 mg Q6H PRN Administration Mild Pain (1-3) Or Fever Albuterol 2 puff 09/24/24 19:07 Albuterol Sulfate (*Sp) Aerosol 1 Puff INHALATION Q6H PRN sob/wheezing Allopurinol 100 mg 09/25/24 09:00 09/26/24 08:55 Allopurinol 100 Mg Tablet PO 100 mg DAILY CESAR Administration Apixaban 2.5 mg 09/24/24 21:00 09/26/24 08:54 Apixaban 2.5 Mg Tablet PO 2.5 mg Q12HR CESAR Administration Atorvastatin Calcium 10 mg 09/25/24 09:00 09/26/24 08:54 Atorvastatin 10 Mg Tablet PO 10 mg DAILY CESAR Administration Benzonatate 200 mg 09/25/24 09:00 Benzonatate 100 Mg Capsule PO TID PRN Cough Bumetanide 1 mg 09/24/24 19:20 09/26/24 08:54 Bumetanide 1 Mg Tablet PO 1 mg BID CESAR Administration Dextrose 12.5 gm 09/24/24 16:08 Dextrose 50% 25 Gm/50 Ml Syringe IV PUSH PRN PRN Hypoglycemia Protocol Glucagon 1 mg 09/24/24 16:08 Glucagon For Inj 1 Mg Vial IM PRN PRN Hypoglycemia Protocol Glucose 15 gm 09/24/24 16:08 Glucose Oral Gel 15 Gm Of Glucse In 37.5 Gm Tube PO PRN PRN Hypoglycemia Protocol Dextrose 1,000 mls @ 100 mls/hr 09/24/24 16:08 Dextrose 5% 1,000 Ml IVPB PRN PRN Hypoglycemia Protocol Insulin Aspart 2 - 5 units 09/24/24 17:00 09/26/24 08:54 Insulin Aspart (*Bkc) 100 Units/Ml SUB-Q Not Given TIDWM CESAR Protocol Loperamide HCl 2 mg 09/24/24 18:40 Loperamide Hcl 2 Mg Capsule PO PRN PRN Diarrhea Midodrine 10 mg 09/24/24 19:07 09/25/24 08:28 Midodrine Hcl 10 Mg Tablet PO 10 mg WITH DIALYSIS PRN Administration hypotension with dialysis Midodrine 10 mg 09/24/24 19:08 09/25/24 11:47 Midodrine Hcl 2.5 Mg Tablet PO 10 mg TID PRN Administration Hypotension BP less than 90/50 Ondansetron HCl 4 mg 09/24/24 15:31 09/24/24 23:27 Ondansetron Inj 4 Mg/2 Ml Vial IV PUSH 4 mg Q4H PRN Administration Nausea Fluticasone/Salmeterol 2 puff 09/24/24 20:00 09/26/24 07:17 Fluticasone/Salmeterol 115-21 Mcg Inhaler 1 Puff INHALATION 2 puff Q12HRT CESAR Administration Sevelamer Carbonate 1,600 mg 09/25/24 08:00 09/26/24 08:55 Sevelamer Carbonate 800 Mg Tablet PO 1,600 mg TIDWM CESAR Administration Tramadol HCl 50 mg 09/24/24 19:07 Tramadol Hcl (*Crx) 50 Mg Tablet PO Q8H PRN PAIN RATED 4-6 Radiology Results: ITS Impressions Chest X-Ray 09/24/24 14:14 IMPRESSION: 1. Stable mild airspace opacities in the mid and lower lung zones, likely atelectasis. 2. Small right pleural effusion. 3. Cardiomegaly. Labs Labs: Laboratory Results - last 24 hr 09/25/24 09/25/24 09/25/24 14:06 16:07 19:53 WBC RBC Hgb Hct MCV MCH MCHC RDW Plt Count MPV Immature Gran % (Auto) Neut % (Auto) Lymph % (Auto) [place] % (Auto) Eos % (Auto) Baso % (Auto) Lymph # (Auto) [place] # (Auto) Eos # (Auto) Baso # (Auto) Abs Immat Gran (auto) Absolute Neuts (auto) Absolute Nucleated RBC Band Neutrophils % Nucleated RBC % Platelet Estimate % Immature Plt Fraction Anisocytosis Ovalocytes [place] Cells Schistocytes Sodium Potassium Chloride Carbon Dioxide Anion Gap BUN Creatinine Estim Creat Clear Calc Estimated GFR Glucose POC Capillary Glucose 127 H 164 H 185 H Calcium Magnesium Total Bilirubin AST ALT Alkaline Phosphatase Total Protein Albumin 09/26/24 09/26/24 09/26/24 04:09 07:20 11:19 WBC 5.8 RBC 4.12 L Hgb 12.8 L Hct 42.1 MCV 102.2 H MCH 31.1 MCHC 30.4 L RDW 16.2 H Plt Count 89 L MPV 11.3 H Immature Gran % (Auto) 0.5 Neut % (Auto) 68.7 Lymph % (Auto) 15.8 L [place] % (Auto) 13.4 H Eos % (Auto) 0.7 Baso % (Auto) 0.9 Lymph # (Auto) 0.91 [place] # (Auto) 0.8 H Eos # (Auto) 0.0 Baso # (Auto) 0.1 Abs Immat Gran (auto) 0.03 Absolute Neuts (auto) 4.0 Absolute Nucleated RBC 0.000 Band Neutrophils % Not Reportable Nucleated RBC % 0.0 Platelet Estimate Decreased % Immature Plt Fraction 6.0 Anisocytosis 1+ Ovalocytes 1+ [place] Cells 1+ Schistocytes None seen Sodium 136 L Potassium 4.6 Chloride 99 Carbon Dioxide 23 Anion Gap 14 H BUN 29 H D Creatinine 4.88 H Estim Creat Clear Calc 12 Estimated GFR 11 L Glucose 141 H POC Capillary Glucose 142 H 262 H Calcium 7.5 L Magnesium 2.0 Total Bilirubin 2.0 H AST 21 ALT 10 Alkaline Phosphatase 110 Total Protein 7.0 Albumin 3.6
[2024-09-26] MEDS: INSULIN ASPART (*BKC) 100 UNITS/ML SUB-Q ×2 (12:06→21:34)
[2024-09-26] MEDS: CEPHALEXIN 500 MG CAPSULE PO ×2 (12:06→20:55)
[2024-09-26 12:52] LABS: Procalcitonin 0.5 ng/mL
--- NOTE | 2024-09-26 14:16 | P.PNNP_ITS ---
Progress Note: A&P Assessment and Plan (1) End-stage renal disease (ESRD): Code(s): N18.6 - End stage renal disease Status: Chronic Assessment and Plan: * HD tomorrow * resume Fri/Fri/Friday dialysis schedule next week while hospitalized * follow electrolytes, volume status, and clearance (2) Hyperkalemia: Code(s): E87.5 - Hyperkalemia Status: Resolved Assessment and Plan: * resolved * as noted on admission labs and on 09/25 * corrected with dialysis * follow trend (3) Hypotension: Code(s): I95.9 - Hypotension, unspecified Status: Chronic Assessment and Plan: * chronic issue at baseline * on midodrine therapy * follow trend of hemodynamics (4) Anemia: Qualifiers: Anemia type: unspecified type Qualified Code(s): D64.9 - Anemia, unspecified Code(s): D64.9 - Anemia, unspecified Status: Chronic Assessment and Plan: * due to ESRD * hold Retacrit since Hgb > 10 * follow trend of H/H (5) Malaise: Code(s): R53.81 - Other malaise Status: Acute Assessment and Plan: * as noted on presentation to ER * viral testing in ER negative for influenza, RSV, and COVID * PT/OT as tolerated (6) Diabetes: Qualifiers: Chronic kidney disease stage: on chronic dialysis Diabetes mellitus complication detail: with chronic kidney disease Diabetes mellitus complication status: with kidney complications [facility] Diabetes mellitus type: type 2 Qualified Code(s): E11.22 - Type 2 diabetes mellitus with diabetic chronic kidney disease; N18.6 - End stage renal disease; Z99.2 - Dependence on renal dialysis Code(s): E11.9 - Type 2 diabetes mellitus without complications Status: Chronic Assessment and Plan: * follow accu-cheks * glycemic control per hospitalists Will continue to follow. L Subjective Date/time seen: 09/26/24 14:16 Interval history: Follow-up for end stage renal disease on hemodialysis. Tolerated dialysis treatment yesterday without any issue or problems; no apparent distress noted at the time of my visit; on antibiotics for possible right LE cellulitis; no other issues/events overnight or earlier this morning. Exam 2 Narrative: General: elderly male in NAD Heart: IRRR, normal S1 and S2; no rub Lungs: clear anteriorly; decreased at bases Abdomen: soft, nontender, nondistended, positive bowel sounds Extremities: no cyanosis or clubbing; trace - 1+ edema (chronic) Skin: chronic skin changes; mild warmth to RLE Objective Data Vital Signs Vital Signs: Vital Signs Temp Pulse Resp BP Pulse Ox O2 Del Method FiO2 09/26/24 14:10 97.9 F 78 17 94/74 L 91 09/26/24 10:00 60 09/26/24 08:16 97.4 F L 84 16 99/49 L 95 09/26/24 08:00 74 09/26/24 07:30 72 18 09/26/24 07:30 72 18 94 Room Air 09/26/24 06:00 67 09/26/24 05:20 63 20 92 Room Air 09/26/24 04:00 65 09/26/24 04:00 98 F 63 20 98/66 L 92 09/26/24 02:00 61 09/26/24 01:11 76 09/26/24 00:15 84 20 93 Room Air 09/26/24 00:00 62 09/26/24 00:00 98 F 84 20 92/53 L 93 09/25/24 22:00 59 L 09/25/24 21:10 61 20 97 Room Air 09/25/24 20:23 62 92 Room Air 21 09/25/24 20:00 64 09/25/24 20:00 98 F 61 20 91/55 L 97 Intake/Output Intake/Output: Intake & Output 09/23/24 09/24/24 09/25/24 09/26/24 23:59 23:59 23:59 23:59 Intake Total 200 1200 730 Output Total 0 1000 Balance 200 200 730 Meds/Results Medications: Active Medications Generic Name Dose Route Start Last Admin Trade Name Freq PRN Reason Stop Dose Admin Acetaminophen 650 mg 09/24/24 19:07 09/25/24 10:30 Acetaminophen 325 Mg Tablet PO 650 mg Q6H PRN Administration Mild Pain (1-3) Or Fever Albuterol 2 puff 09/24/24 19:07 Albuterol Sulfate (*Sp) Aerosol 1 Puff INHALATION Q6H PRN sob/wheezing Allopurinol 100 mg 09/25/24 09:00 09/26/24 08:55 Allopurinol 100 Mg Tablet PO 100 mg DAILY CESAR Administration Apixaban 2.5 mg 09/24/24 21:00 09/26/24 08:54 Apixaban 2.5 Mg Tablet PO 2.5 mg Q12HR CESAR Administration Atorvastatin Calcium 10 mg 09/25/24 09:00 09/26/24 08:54 Atorvastatin 10 Mg Tablet PO 10 mg DAILY CESAR Administration Benzonatate 200 mg 09/25/24 09:00 Benzonatate 100 Mg Capsule PO TID PRN Cough Bumetanide 1 mg 09/24/24 19:20 09/26/24 17:05 Bumetanide 1 Mg Tablet PO 1 mg BID CESAR Administration Cephalexin HCl 500 mg 09/26/24 11:50 09/26/24 12:06 Cephalexin 500 Mg Capsule PO 500 mg Q12HR CESAR Administration Dextrose 12.5 gm 09/24/24 16:08 Dextrose 50% 25 Gm/50 Ml Syringe IV PUSH PRN PRN Hypoglycemia Protocol Glucagon 1 mg 09/24/24 16:08 Glucagon For Inj 1 Mg Vial IM PRN PRN Hypoglycemia Protocol Glucose 15 gm 09/24/24 16:08 Glucose Oral Gel 15 Gm Of Glucse In 37.5 Gm Tube PO PRN PRN Hypoglycemia Protocol Dextrose 1,000 mls @ 100 mls/hr 09/24/24 16:08 Dextrose 5% 1,000 Ml IVPB PRN PRN Hypoglycemia Protocol Insulin Aspart 2 - 5 units 09/24/24 17:00 09/26/24 17:08 Insulin Aspart (*Bkc) 100 Units/Ml SUB-Q Not Given TIDWM CESAR Protocol Loperamide HCl 2 mg 09/24/24 18:40 Loperamide Hcl 2 Mg Capsule PO PRN PRN Diarrhea Midodrine 10 mg 09/24/24 19:07 09/25/24 08:28 Midodrine Hcl 10 Mg Tablet PO 10 mg WITH DIALYSIS PRN Administration hypotension with dialysis Midodrine 10 mg 09/24/24 19:08 09/25/24 11:47 Midodrine Hcl 2.5 Mg Tablet PO 10 mg TID PRN Administration Hypotension BP less than 90/50 Ondansetron HCl 4 mg 09/24/24 15:31 09/24/24 23:27 Ondansetron Inj 4 Mg/2 Ml Vial IV PUSH 4 mg Q4H PRN Administration Nausea Fluticasone/Salmeterol 2 puff 09/24/24 20:00 09/26/24 07:17 Fluticasone/Salmeterol 115-21 Mcg Inhaler 1 Puff INHALATION 2 puff Q12HRT CESAR Administration Sevelamer Carbonate 1,600 mg 09/25/24 08:00 09/26/24 17:05 Sevelamer Carbonate 800 Mg Tablet PO 1,600 mg TIDWM CESAR Administration Tramadol HCl 50 mg 09/24/24 19:07 Tramadol Hcl (*Crx) 50 Mg Tablet PO Q8H PRN PAIN RATED 4-6 Radiology Results: ITS Impressions Chest X-Ray 09/24/24 14:14 IMPRESSION: 1. Stable mild airspace opacities in the mid and lower lung zones, likely atelectasis. 2. Small right pleural effusion. 3. Cardiomegaly. Venous Doppler Study 09/26/24 14:48 IMPRESSION: 1. No deep venous thrombosis within the bilateral lower extremities. Labs Labs: Laboratory Tests 09/26/24 04:09 09/26/24 04:09 Calcium 7.5 L Magnesium 2.0 Total Bilirubin 2.0 H AST 21 ALT 10 Alkaline Phosphatase 110 Total Protein 7.0 Albumin 3.6 Procalcitonin 0.5
--- NOTE | 2024-09-26 15:15 | PC.NURSE ---
This patient, Khalif Yanez, was transferred to [facility] on 09/26/24 at 1455. Personal belongings sent with patient. Report given to Belen. Appropriate documentation sent with patient. Zeynep Cota RN
[2024-09-26 17:11] LABS: Glucose Point of Care 143 mg/dl (65-105)
[2024-09-26 21:40] LABS: Glucose Point of Care 240 mg/dl (65-105)
[2024-09-27] VITALS (23 sets, daily range): BP systolic 90–131; BP diastolic 50–78; PULSE 62–77; RESP 16–20; TEMP 35.8–37; O2SAT 94–98
[2024-09-27 07:39] LABS: Basophils Absolute Auto 0.1 K/mm3 (0.0-0.1); Eosinophils Absolute Auto 0.1 K/mm3 (0-0.3); Eosinophils Percent Auto 1.2 % (0-4.4); Hematocrit 42.1 % (42.0-52.0); Immature Granulocyte Absolute 0.03 K/mm3 (0.00-0.031); Immature Granulocyte Percent A 0.5 % (0-0.5); Lymphocytes Percent Auto 15.5 % (18.3-44.2); Mean Corpuscular HGB Conc 30.9 g/dl (32-36); Mean Corpuscular Hemoglobin 31.1 pg (26-34); Mean Corpuscular Volume 100.7 fl (80-100); Mean Platelet Volume 11.7 fl (7.4-10.4); Monocytes Absolute Auto 0.8 K/mm3 (0.1-0.6); Monocytes Percent Auto 14.2 % (2.6-8.5); Neutrophils Absolute Auto 3.9 K/mm3 (1.3-6.7); Neutrophils Percent Auto 67.6 % (45.5-73.1); Platelet Count Result 103 k/mm3 (150-375); Red Blood Count 4.18 M/mm3 (4.6-6.20); Red Cell Distribution Width 15.9 % (11.5-14.5); White Blood Count 5.8 K/mm3 (4.5-10.0)
[2024-09-27] MEDS: FLUTICASONE/SALMETEROL 115-21 MCG INHALER 1 PUFF 2 PUFF INHALATION (07:51)
[2024-09-27 07:59] LABS: Alanine Aminotransferase 12 U/L (6-50); Albumin Level 3.8 g/dL (3.5-5.1); Alkaline Phosphatase 106 U/L (38-126); Anion Gap 15 mmol/L (4-12); Aspartate Amino Transferase 20 U/L (17-59); Bilirubin,Total 1.9 mg/dL (0.2-1.3); Blood Urea Nitrogen 37 mg/dL (9-20); Calcium 7.4 mg/dL (8.4-10.2); Carbon Dioxide 24 mmol/L (22-30); Chloride 97 mmol/L (98-107); Estimated CRCL calculation 10 ml/min; Estimated Glomerular Filt Rate 8; Glucose 127 mg/dL (65-110); Potassium 4.7 mmol/L (3.4-5.0); Sodium 136 mmol/L (137-145)
[2024-09-27 08:19] LABS: Glucose Point of Care 130 mg/dl (65-105)
--- NOTE | 2024-09-27 08:30 | PC.NURSE ---
Report called to dialysis nurse.
[2024-09-27] MEDS: MIDODRINE HCL 10 MG TABLET PO (08:33)
[2024-09-27] MEDS: ATORVASTATIN 10 MG TABLET PO (08:33)
[2024-09-27] MEDS: allopurinoL 100 MG TABLET PO (08:33)
[2024-09-27] MEDS: CEPHALEXIN 500 MG CAPSULE PO ×2 (08:33→20:28)
[2024-09-27] MEDS: SEVELAMER CARBONATE 800 MG TABLET 1600 MG PO ×3 (08:33→17:07)
[2024-09-27] MEDS: APIXABAN 2.5 MG TABLET PO ×2 (08:33→20:28)
[2024-09-27] MEDS: BUMETANIDE 1 MG TABLET PO ×2 (08:33→17:07)
[2024-09-27] MEDS: BENZONATATE 100 MG CAPSULE 200 MG PO (08:40)
--- NOTE | 2024-09-27 08:50 | PC.NURSE ---
To dialysis via bed.
[2024-09-27] MEDS: ALBUMIN HUMAN 25% 12.5 GM/50ML 50 ML 100 GM (09:12)
--- NOTE | 2024-09-27 09:41 | PCPTNOTE ---
attempted PT eval, pt in dialysis at this time, will follow
--- NOTE | 2024-09-27 10:01 | P.PNNP_ITS ---
Progress Note: A&P Assessment and Plan (1) End-stage renal disease (ESRD): Code(s): N18.6 - End stage renal disease Status: Chronic Assessment and Plan: * HD today * resume Fri/Fri/Friday dialysis schedule next week while hospitalized * follow electrolytes, volume status, and clearance (2) Hyperkalemia: Code(s): E87.5 - Hyperkalemia Status: Resolved Assessment and Plan: * resolved * as noted on admission labs and on 09/25 * corrected with dialysis * follow trend (3) Hypotension: Code(s): I95.9 - Hypotension, unspecified Status: Chronic Assessment and Plan: * chronic issue at baseline * on midodrine therapy * follow trend of hemodynamics (4) Anemia: Qualifiers: Anemia type: unspecified type Qualified Code(s): D64.9 - Anemia, unspecified Code(s): D64.9 - Anemia, unspecified Status: Chronic Assessment and Plan: * due to ESRD * hold Retacrit since Hgb > 10 * follow trend of H/H (5) Malaise: Code(s): R53.81 - Other malaise Status: Acute Assessment and Plan: * as noted on presentation to ER * viral testing in ER negative for influenza, RSV, and COVID * PT/OT as tolerated (6) Diabetes: Qualifiers: Chronic kidney disease stage: on chronic dialysis Diabetes mellitus complication detail: with chronic kidney disease Diabetes mellitus complication status: with kidney complications Diabetes mellitus [employer] insulin use: w [facility] [employer] use Diabetes mellitus type: type 2 Qualified Code(s): E11.22 - Type 2 diabetes mellitus with diabetic chronic kidney disease; N18.6 - End stage renal disease; Z99.2 - Dependence on renal dialysis Code(s): E11.9 - Type 2 diabetes mellitus without complications Status: Chronic Assessment and Plan: * follow accu-cheks * glycemic control per hospitalists Will continue to follow. L Subjective Date/time seen: 09/27/24 10:01 Interval history: Follow-up for end stage renal disease on hemodialysis. Tolerating dialysis treatment at the time of my visit (seen on HD at 9:50AM); no apparent distress noted although reports some mild nausea at the start of dialysis (but doing better with IV antiemetic); no acute issues/events overnight or earlier this morning. Exam 2 Narrative: General: elderly male in NAD Heart: IRRR, normal S1 and S2; no rub Lungs: clear anteriorly; decreased at bases Abdomen: soft, nontender, nondistended, positive bowel sounds Extremities: no cyanosis or clubbing; trace - 1+ edema (chronic) Skin: chronic skin changes present Objective Data Vital Signs Vital Signs: Vital Signs Temp Pulse Resp BP Pulse Ox O2 Del Method FiO2 09/27/24 10:00 63 112/61 09/27/24 09:45 62 107/57 L 09/27/24 09:30 69 101/50 L 09/27/24 09:15 74 110/55 L 09/27/24 09:11 72 95/57 L 09/27/24 09:00 97.9 F 72 16 90/51 L 09/27/24 07:51 70 16 09/27/24 07:51 94 Room Air 09/27/24 05:30 98.3 F 72 20 114/78 96 09/26/24 20:55 Room Air 09/26/24 20:40 98.5 F 72 18 111/65 95 09/26/24 19:41 66 18 09/26/24 19:41 93 Room Air 21 09/26/24 15:10 97.9 F 78 17 94/74 L 91 Intake/Output Intake/Output: Intake & Output 09/24/24 09/25/24 09/26/24 09/27/24 23:59 23:59 23:59 23:59 Intake Total 200 1200 966 610 Output Total 0 1000 0 Balance 200 200 966 610 Meds/Results Medications: Active Medications Generic Name Dose Route Start Last Admin Trade Name Freq PRN Reason Stop Dose Admin Acetaminophen 650 mg 09/24/24 19:07 09/25/24 10:30 Acetaminophen 325 Mg Tablet PO 650 mg Q6H PRN Administration Mild Pain (1-3) Or Fever Albuterol 2 puff 09/24/24 19:07 Albuterol Sulfate (*Sp) Aerosol 1 Puff INHALATION Q6H PRN sob/wheezing Allopurinol 100 mg 09/25/24 09:00 09/27/24 08:33 Allopurinol 100 Mg Tablet PO 100 mg DAILY CESAR Administration Apixaban 2.5 mg 09/24/24 21:00 09/27/24 08:33 Apixaban 2.5 Mg Tablet PO 2.5 mg Q12HR CESAR Administration Atorvastatin Calcium 10 mg 09/25/24 09:00 09/27/24 08:33 Atorvastatin 10 Mg Tablet PO 10 mg DAILY CESAR Administration Benzonatate 200 mg 09/25/24 09:00 09/27/24 08:40 Benzonatate 100 Mg Capsule PO 200 mg TID PRN Administration Cough Bumetanide 1 mg 09/24/24 19:20 09/27/24 08:33 Bumetanide 1 Mg Tablet PO 1 mg BID CESAR Administration Cephalexin HCl 500 mg 09/26/24 11:50 09/27/24 08:33 Cephalexin 500 Mg Capsule PO 500 mg Q12HR CESAR Administration Dextrose 12.5 gm 09/24/24 16:08 Dextrose 50% 25 Gm/50 Ml Syringe IV PUSH PRN PRN Hypoglycemia Protocol Glucagon 1 mg 09/24/24 16:08 Glucagon For Inj 1 Mg Vial IM PRN PRN Hypoglycemia Protocol Glucose 15 gm 09/24/24 16:08 Glucose Oral Gel 15 Gm Of Glucse In 37.5 Gm Tube PO PRN PRN Hypoglycemia Protocol Dextrose 1,000 mls @ 100 mls/hr 09/24/24 16:08 Dextrose 5% 1,000 Ml IVPB PRN PRN Hypoglycemia Protocol Insulin Aspart 2 - 5 units 09/24/24 17:00 09/27/24 08:34 Insulin Aspart (*Bkc) 100 Units/Ml SUB-Q Not Given TIDWM CESAR Protocol Insulin Aspart 1 - 3 units 09/26/24 21:35 09/26/24 21:34 Insulin Aspart (*Bkc) 100 Units/Ml SUB-Q 1 units HS CESAR Administration Protocol Loperamide HCl 2 mg 09/24/24 18:40 Loperamide Hcl 2 Mg Capsule PO PRN PRN Diarrhea Midodrine 10 mg 09/24/24 19:07 09/27/24 08:33 Midodrine Hcl 10 Mg Tablet PO 10 mg WITH DIALYSIS PRN Administration hypotension with dialysis Midodrine 10 mg 09/24/24 19:08 09/27/24 11:11 Midodrine Hcl 2.5 Mg Tablet PO 10 mg TID PRN Administration Hypotension BP less than 90/50 Ondansetron HCl 4 mg 09/24/24 15:31 09/27/24 11:11 Ondansetron Inj 4 Mg/2 Ml Vial IV PUSH 4 mg Q4H PRN Administration Nausea Fluticasone/Salmeterol 2 puff 09/24/24 20:00 09/27/24 07:51 Fluticasone/Salmeterol 115-21 Mcg Inhaler 1 Puff INHALATION 2 puff Q12HRT CESAR Administration Sevelamer Carbonate 1,600 mg 09/25/24 08:00 09/27/24 08:33 Sevelamer Carbonate 800 Mg Tablet PO 1,600 mg TIDWM CESAR Administration Tramadol HCl 50 mg 09/24/24 19:07 Tramadol Hcl (*Crx) 50 Mg Tablet PO Q8H PRN PAIN RATED 4-6 Radiology Results: ITS Impressions Chest X-Ray 09/24/24 14:14 IMPRESSION: 1. Stable mild airspace opacities in the mid and lower lung zones, likely atelectasis. 2. Small right pleural effusion. 3. Cardiomegaly. Venous Doppler Study 09/26/24 14:48 IMPRESSION: 1. No deep venous thrombosis within the bilateral lower extremities. Duplex Scan Lower Extremity Artery 09/26/24 22:36 IMPRESSION: No hemodynamically significant stenosis detected bilaterally, as detailed above. Labs Labs: Laboratory Tests 09/27/24 07:18 09/27/24 07:18 Calcium 7.4 L Magnesium 2.0 Total Bilirubin 1.9 H AST 20 ALT 12 Alkaline Phosphatase 106 Total Protein 8.0 Albumin 3.8
--- NOTE | 2024-09-27 11:07 | PCOTNOTE ---
Pt is currently at dialysis this morning. Will continue to follow for OT evaluation.
[2024-09-27] MEDS: ONDANSETRON INJ 4 MG/2 ML VIAL IV PUSH (11:11)
[2024-09-27] MEDS: MIDODRINE HCL 2.5 MG TABLET 10 MG PO (11:11)
--- NOTE | 2024-09-27 12:37 | PM.IMPN ---
Progress Note: A&P Assessment and Plan (1) Chronic hypotension: Code(s): I95.89 - Other hypotension Status: Acute (2) Acute hyperkalemia: Code(s): E87.5 - Hyperkalemia Status: Acute (3) Elevated troponin: Code(s): R79.89 - Other specified abnormal findings of blood chemistry Status: Acute (4) ESRD (end stage renal disease) on dialysis: Code(s): N18.6 - End stage renal disease; Z99.2 - Dependence on renal dialysis Status: Acute (5) Diabetes: Qualifiers: Diabetes mellitus type: type 2 Diabetes mellitus penitentiary insulin use: without penitentiary use Diabetes mellitus complication status: with kidney complications Diabetes mellitus complication detail: with chronic kidney disease Chronic kidney disease stage: on chronic dialysis Qualified Code(s): E11.22 - Type 2 diabetes mellitus with diabetic chronic kidney disease; N18.6 - End stage renal disease; Z99.2 - Dependence on renal dialysis Code(s): E11.9 - Type 2 diabetes mellitus without complications Status: Chronic (6) Essential (primary) hypertension: Code(s): I10 - Essential (primary) hypertension Status: Chronic Plan 84 y/o M presents here with general malaise with PMH of ESRD on HD, CHF, AFib on Eliquis, chronic hypotension on midodrine, KEV not on CPAP, and diabetes. The patient presents here from his dialysis center for further evaluation of general malaise. He reports he has a history of ESRD on HD with treatment days on // at [facility] in [place]. Initially, the patient missed his treatment on Friday due to a pipe bursting at his facility. Reports he has had general malaise, cough, diarrhea, fine tremors to his bilateral hands that has been ongoing for 7 days. Today he was only able to complete 3/4 of his dialysis treatment due to feeling unwell - abdominal cramping and nausea, reports they were able to remove 2L but typically gets 3L off. He denies fever, chills, body aches, congestion, shortness of breath, chest pain, dizziness. Of note, the patient no longer makes urine. No known sick contacts. Initial VS at presentation: 98? F, HR 58, RR 20, 97/64, and 100% on RA. ED workup showed: No leukocytosis, hemoglobin 12.9 (previously 11.3 on 08/04/2024), K 5.5, creatinine 5.93 and GFR 9, lactic 1.7, calcium 7.3, and viral PCR negative. CXR showed stable mild airspace opacities in the mid and lower lung zones likely atelectasis, small right pleural effusion, and cardiomegaly. Initial EKG showed AFib with slow ventricular response, RBBB, consider in serial septal infarct age indeterminate, ST-T-wave abnormality in inferior/lateral leads consider ischemia. When compared to EKG done in July of 2024, heart rate has decreased. Chronic AFib off Coreg due to bradycardia. On apixaban now. Heart rate stable Chronic back pain status post back stimulator. This probably related to his back pain. Advised to see pain management/spine surgeon for further evaluation as an outpatient basis. Chronic hypotension on midodrine: Recently had diarrhea for the past 7 days likely hypotension worsened related to this. Received some fluid bolus and albumin in the ER. Will continue to monitor. Possible right leg cellulitis on cephalexin empirically Venous duplex negative for DVT arterial duplex shows no hemodynamically significant stenosis detected bilaterally. Acute hyperkalemia potassium of 5.5 treated with Lokelma. Underwent dialysis extra 09/25/2024.-normalized Elevated troponin flat trend mildly elevated likely due to underlying renal disease. Thrombocytopenia mild chronic Congestive heart failure chronic diastolic well compensated End-stage renal disease on hemodialysis inpatient hemodialysis per nephrology Chronic anemia with no obvious bleeding. Type 2 diabetes: SSI DVT prophylaxis on apixaban Code status full code Small pressure wound, less than 1 cm to buttocks. Wound during consulted. No signs of infection. Subjective Date/time seen: 09/27/24 12:37 Interval history: Seen during dialysis. No new complaints. Right leg feeling better. Does not complain of any pain. Review of Systems Review of Systems: All systems reviewed & are unremarkable except as noted in HPI and below Exam Narrative: GENERAL: Chronically ill not in acute distress awake and alert HEAD: [Normocephalic, atraumatic.] EYES: [PERRLA and EOMI.] ENT: Nares clear, no rhinorrhea or epistaxis. Mucous membranes moist. NECK: Supple. CHEST: [Clear to auscultation. No respiratory distress.] HEART: [Regular rate and rhythm]. No murmur heard. [Normal peripheral pulses.] ABDOMEN: Protuberant, soft, [nontender], [No rigidity or guarding] EXTREMITIES: Normal range of motion. 1+ edema to the extremities SKIN: Cool bilateral lower extremities which patient states is chronic, some thickening of the skin without any overlying cellulitis or ulceration right leg feels a bit darker but not anymore warm NEURO: [No focal deficits]. Alert and oriented [x3.] PSYCH: [Normal mood and affect.] Objective Data Vital Signs Vital Signs: Vital Signs - 24 hr 09/26/24 15:10 09/26/24 19:41 09/26/24 19:41 Temperature 97.9 F Pulse Rate 78 66 Respiratory Rate 17 18 Blood Pressure 94/74 L Pulse Oximetry 91 93 Oxygen Delivery Room Air Fraction of Inspired Oxygen 21 09/26/24 20:40 09/26/24 20:55 09/27/24 05:30 Temperature 98.5 F 98.3 F Pulse Rate 72 72 Respiratory Rate 18 20 Blood Pressure 111/65 114/78 Pulse Oximetry 95 96 Oxygen Delivery Room Air Fraction of Inspired Oxygen 09/27/24 07:51 09/27/24 07:51 09/27/24 09:00 Temperature 97.9 F Pulse Rate 70 72 Respiratory Rate 16 16 Blood Pressure 90/51 L Pulse Oximetry 94 Oxygen Delivery Room Air Fraction of Inspired Oxygen 21 09/27/24 09:11 09/27/24 09:15 09/27/24 09:30 Temperature Pulse Rate 72 74 69 Respiratory Rate Blood Pressure 95/57 L 110/55 L 101/50 L Pulse Oximetry Oxygen Delivery Fraction of Inspired Oxygen 09/27/24 09:45 09/27/24 10:00 09/27/24 10:15 Temperature Pulse Rate 62 63 66 Respiratory Rate Blood Pressure 107/57 L 112/61 111/70 Pulse Oximetry Oxygen Delivery Fraction of Inspired Oxygen 09/27/24 10:30 09/27/24 10:45 09/27/24 11:00 Temperature Pulse Rate 70 67 66 Respiratory Rate Blood Pressure 110/61 107/70 113/68 Pulse Oximetry Oxygen Delivery Fraction of Inspired Oxygen 09/27/24 11:15 09/27/24 11:30 09/27/24 11:45 Temperature Pulse Rate 65 74 67 Respiratory Rate Blood Pressure 113/67 120/68 128/73 Pulse Oximetry Oxygen Delivery Fraction of Inspired Oxygen Intake/Output Intake/Output: Intake & Output 09/24/24 09/25/24 09/26/24 09/27/24 23:59 23:59 23:59 23:59 Intake Total 200 1200 966 610 Output Total 0 1000 0 Balance 200 200 966 610 Meds/Results Medications: Active Medications Generic Name Dose Route Start Last Admin Trade Name Freq PRN Reason Stop Dose Admin Acetaminophen 650 mg 09/24/24 19:07 09/25/24 10:30 Acetaminophen 325 Mg Tablet PO 650 mg Q6H PRN Administration Mild Pain (1-3) Or Fever Albuterol 2 puff 09/24/24 19:07 Albuterol Sulfate (*Sp) Aerosol 1 Puff INHALATION Q6H PRN sob/wheezing Allopurinol 100 mg 09/25/24 09:00 09/27/24 08:33 Allopurinol 100 Mg Tablet PO 100 mg DAILY CESAR Administration Apixaban 2.5 mg 09/24/24 21:00 09/27/24 08:33 Apixaban 2.5 Mg Tablet PO 2.5 mg Q12HR CESAR Administration Atorvastatin Calcium 10 mg 09/25/24 09:00 09/27/24 08:33 Atorvastatin 10 Mg Tablet PO 10 mg DAILY CESAR Administration Benzonatate 200 mg 09/25/24 09:00 09/27/24 08:40 Benzonatate 100 Mg Capsule PO 200 mg TID PRN Administration Cough Bumetanide 1 mg 09/24/24 19:20 09/27/24 08:33 Bumetanide 1 Mg Tablet PO 1 mg BID CESAR Administration Cephalexin HCl 500 mg 09/26/24 11:50 09/27/24 08:33 Cephalexin 500 Mg Capsule PO 500 mg Q12HR CESAR Administration Dextrose 12.5 gm 09/24/24 16:08 Dextrose 50% 25 Gm/50 Ml Syringe IV PUSH PRN PRN Hypoglycemia Protocol Glucagon 1 mg 09/24/24 16:08 Glucagon For Inj 1 Mg Vial IM PRN PRN Hypoglycemia Protocol Glucose 15 gm 09/24/24 16:08 Glucose Oral Gel 15 Gm Of Glucse In 37.5 Gm Tube PO PRN PRN Hypoglycemia Protocol Dextrose 1,000 mls @ 100 mls/hr 09/24/24 16:08 Dextrose 5% 1,000 Ml IVPB PRN PRN Hypoglycemia Protocol Insulin Aspart 2 - 5 units 09/24/24 17:00 09/27/24 08:34 Insulin Aspart (*Bkc) 100 Units/Ml SUB-Q Not Given TIDWM [facility] Protocol Insulin Aspart 1 - 3 units 09/26/24 21:35 09/26/24 21:34 Insulin Aspart (*Bkc) 100 Units/Ml SUB-Q 1 units HS CESAR Administration Protocol Loperamide HCl 2 mg 09/24/24 18:40 Loperamide Hcl 2 Mg Capsule PO PRN PRN Diarrhea Midodrine 10 mg 09/24/24 19:07 09/27/24 08:33 Midodrine Hcl 10 Mg Tablet PO 10 mg WITH DIALYSIS PRN Administration hypotension with dialysis Midodrine 10 mg 09/24/24 19:08 09/27/24 11:11 Midodrine Hcl 2.5 Mg Tablet PO 10 mg TID PRN Administration Hypotension BP less than 90/50 Ondansetron HCl 4 mg 09/24/24 15:31 09/27/24 11:11 Ondansetron Inj 4 Mg/2 Ml Vial IV PUSH 4 mg Q4H PRN Administration Nausea Fluticasone/Salmeterol 2 puff 09/24/24 20:00 09/27/24 07:51 Fluticasone/Salmeterol 115-21 Mcg Inhaler 1 Puff INHALATION 2 puff Q12HRT CESAR Administration Sevelamer Carbonate 1,600 mg 09/25/24 08:00 09/27/24 08:33 Sevelamer Carbonate 800 Mg Tablet PO 1,600 mg TIDWM CESAR Administration Tramadol HCl 50 mg 09/24/24 19:07 Tramadol Hcl (*Crx) 50 Mg Tablet PO Q8H PRN PAIN RATED 4-6 Radiology Results: ITS Impressions Chest X-Ray 09/24/24 14:14 IMPRESSION: 1. Stable mild airspace opacities in the mid and lower lung zones, likely atelectasis. 2. Small right pleural effusion. 3. Cardiomegaly. Venous Doppler Study 09/26/24 14:48 IMPRESSION: 1. No deep venous thrombosis within the bilateral lower extremities. Duplex Scan Lower Extremity Artery 09/26/24 22:36 IMPRESSION: No hemodynamically significant stenosis detected bilaterally, as detailed above. Labs Labs: Laboratory Results - last 24 hr 09/26/24 09/26/24 09/26/24 04:09 17:08 20:41 WBC RBC Hgb Hct MCV MCH MCHC RDW Plt Count MPV Immature Gran % (Auto) Neut % (Auto) Lymph % (Auto) [place] % (Auto) Eos % (Auto) Baso % (Auto) Lymph # (Auto) [place] # (Auto) Eos # (Auto) Baso # (Auto) Abs Immat Gran (auto) Absolute Neuts (auto) Absolute Nucleated RBC Nucleated RBC % Sodium Potassium Chloride Carbon Dioxide Anion Gap BUN Creatinine Estim Creat Clear Calc Estimated GFR Glucose POC Capillary Glucose 143 H 240 H Calcium Magnesium Total Bilirubin AST ALT Alkaline Phosphatase Total Protein Albumin Procalcitonin 0.5 09/27/24 09/27/24 07:18 08:12 WBC 5.8 RBC 4.18 L Hgb 13.0 L Hct 42.1 MCV 100.7 H MCH 31.1 MCHC 30.9 L RDW 15.9 H Plt Count 103 L MPV 11.7 H Immature Gran % (Auto) 0.5 Neut % (Auto) 67.6 Lymph % (Auto) 15.5 [address] [place] % (Auto) 14.2 H Eos % (Auto) 1.2 Baso % (Auto) 1.0 Lymph # (Auto) 0.90 [place] # (Auto) 0.8 H Eos # (Auto) 0.1 Baso # (Auto) 0.1 Abs Immat Gran (auto) 0.03 Absolute Neuts (auto) 3.9 Absolute Nucleated RBC 0.000 Nucleated RBC % 0.0 Sodium 136 L Potassium 4.7 Chloride 97 L Carbon Dioxide 24 Anion Gap 15 H BUN 37 H Creatinine 6.33 H Estim Creat Clear Calc 10 Estimated GFR 8 L Glucose 127 H POC Capillary Glucose 130 H Calcium 7.4 L Magnesium 2.0 Total Bilirubin 1.9 H AST 20 ALT 12 Alkaline Phosphatase 106 Total Protein 8.0 Albumin 3.8 Procalcitonin
[2024-09-27 13:33] LABS: Glucose Point of Care 114 mg/dl (65-105)
--- NOTE | 2024-09-27 14:11 | PCPTNOTE ---
PT attempted evaluation, per nursing pt have dropped in BP and unable to tolerate sitting up at edge of bed at this time. will continue to monitor.
[2024-09-27 16:41] LABS: Glucose Point of Care 199 mg/dl (65-105)
[2024-09-27] MEDS: INSULIN ASPART (*BKC) 100 UNITS/ML SUB-Q (20:28)
[2024-09-27 21:45] LABS: Glucose Point of Care 202 mg/dl (65-105)
[2024-09-28 05:10] VITALS: BP 93/48; PULSE 72; RESP 18; TEMP 36.8; O2SAT 95
[2024-09-28 06:43] LABS: Basophils Percent Auto 0.7 % (0.2-1.2); Eosinophils Absolute Auto 0.1 K/mm3 (0-0.3); Eosinophils Percent Auto 0.9 % (0-4.4); Hematocrit 40.8 % (42.0-52.0); Hemoglobin 12.8 g/dL (14.0-18.0); Immature Granulocyte Absolute 0.04 K/mm3 (0.00-0.031); Immature Granulocyte Percent A 0.7 % (0-0.5); Immature Platelet Fraction Pct 4.7 % (0.9-11.2); Lymphocytes Absolute Auto 0.68 K/mm3 (0.9-3.2); Mean Corpuscular HGB Conc 31.4 g/dl (32-36); Mean Corpuscular Hemoglobin 31.9 pg (26-34); Mean Corpuscular Volume 101.7 fl (80-100); Monocytes Absolute Auto 0.9 K/mm3 (0.1-0.6); Monocytes Percent Auto 15.9 % (2.6-8.5); Neutrophils Absolute Auto 3.9 K/mm3 (1.3-6.7); Neutrophils Percent Auto 69.8 % (45.5-73.1); Platelet Count Result 91 k/mm3 (150-375); Red Blood Count 4.01 M/mm3 (4.6-6.20); Red Cell Distribution Width 15.8 % (11.5-14.5); White Blood Count 5.7 K/mm3 (4.5-10.0)
[2024-09-28 06:51] LABS: Alanine Aminotransferase 11 U/L (6-50); Albumin Level 3.6 g/dL (3.5-5.1); Alkaline Phosphatase 113 U/L (38-126); Anion Gap 15 mmol/L (4-12); Aspartate Amino Transferase 20 U/L (17-59); Bilirubin,Total 1.7 mg/dL (0.2-1.3); Blood Urea Nitrogen 30 mg/dL (9-20); Calcium 8.1 mg/dL (8.4-10.2); Carbon Dioxide 26 mmol/L (22-30); Chloride 97 mmol/L (98-107); Estimated CRCL calculation 13 ml/min; Estimated Glomerular Filt Rate 12; Glucose 147 mg/dL (65-110); Potassium 4.2 mmol/L (3.4-5.0); Sodium 138 mmol/L (137-145)
[2024-09-28 07:57] LABS: Glucose Point of Care 139 mg/dl (65-105)
[2024-09-28 08:09] VITALS: BP 94/59
[2024-09-28] MEDS: allopurinoL 100 MG TABLET PO (08:09)
[2024-09-28] MEDS: SEVELAMER CARBONATE 800 MG TABLET 1600 MG PO ×2 (08:10→11:48)
[2024-09-28] MEDS: CEPHALEXIN 500 MG CAPSULE PO (08:10)
[2024-09-28] MEDS: APIXABAN 2.5 MG TABLET PO (08:10)
[2024-09-28] MEDS: ATORVASTATIN 10 MG TABLET PO (08:10)
[2024-09-28] MEDS: FLUTICASONE/SALMETEROL 115-21 MCG INHALER 1 PUFF 2 PUFF INHALATION (08:28)
[2024-09-28 08:29] VITALS: PULSE 70; RESP 20; O2SAT 96
[2024-09-28 08:29] LABS: Macrocytosis 1+ (NORMAL); Ovalocytes 1+; Platelet Estimate Decreased (Adequate); Schistocytes None Seen
[2024-09-28 11:35] LABS: Glucose Point of Care 222 mg/dl (65-105)
--- NOTE | 2024-09-28 11:41 | P.PNNP_ITS ---
Progress Note: A&P Assessment and Plan (1) End-stage renal disease (ESRD): Code(s): N18.6 - End stage renal disease Status: Chronic Assessment and Plan: * HD tomorrow * continue Fri/Fri/Friday dialysis schedule next week while hospitalized * follow electrolytes, volume status, and clearance (2) Hyperkalemia: Code(s): E87.5 - Hyperkalemia Status: Resolved Assessment and Plan: * resolved * as noted on admission labs and on 09/25 * corrected with dialysis * follow trend (3) Hypotension: Code(s): I95.9 - Hypotension, unspecified Status: Chronic Assessment and Plan: * chronic issue at baseline * on midodrine therapy * follow trend of hemodynamics (4) Anemia: Qualifiers: Anemia type: unspecified type Qualified Code(s): D64.9 - Anemia, unspecified Code(s): D64.9 - Anemia, unspecified Status: Chronic Assessment and Plan: * due to ESRD * hold Retacrit since Hgb > 10 * follow trend of H/H (5) Malaise: Code(s): R53.81 - Other malaise Status: Acute Assessment and Plan: * as noted on presentation to ER * viral testing in ER negative for influenza, RSV, and COVID * PT/OT as tolerated (6) Diabetes: Qualifiers: Diabetes mellitus type: type 2 Diabetes mellitus [employer] insulin use: without mcfp use Diabetes mellitus complication status: with kidney complications Diabetes mellitus complication detail: with chronic kidney disease Chronic kidney disease stage: on chronic dialysis Qualified Code(s): E 11.22 - Type 2 diabetes mellitus with diabetic chronic kidney disease; N18.6 - End stage renal disease; Z99.2 - Dependence on renal dialysis Code(s): E11.9 - Type 2 diabetes mellitus without complications Status: Chronic Assessment and Plan: * follow accu-cheks * glycemic control per hospitalists Not opposed to discharge from renal perspective if otherwise medically stable -- I will follow-up with him at his outpatient dialysis center. Will continue to follow. L Subjective Date/time seen: 09/28/24 11:41 Interval history: Follow-up for end stage renal disease on hemodialysis. Tolerated dialysis treatment yesterday without any issues or problems; no apparent distress voiced at the time of my visit; feels reasonably well; no other acute complaints to report; no events overnight or earlier this morning. Exam 2 Narrative: General: elderly male in NAD Heart: IRRR, normal S1 and S2; no rub Lungs: clear anteriorly; decreased at bases Abdomen: soft, nontender, nondistended, positive bowel sounds Extremities: no cyanosis or clubbing; trace - 1+ edema (chronic) Skin: chronic skin changes apparent Objective Data Vital Signs Vital Signs: Vital Signs Temp Pulse Resp BP Pulse Ox O2 Del Method 09/28/24 08:29 70 20 09/28/24 08:29 96 Room Air 09/28/24 08:09 Room Air 09/28/24 08:09 94/59 L 09/28/24 08:00 Room Air 09/28/24 05:10 98.3 F 72 18 93/48 L 95 09/27/24 21:05 98.5 F 67 20 96/51 L 98 09/27/24 20:28 Room Air Intake/Output Intake/Output: Intake & Output 09/25/24 09/26/24 09/27/24 09/28/24 23:59 23:59 23:59 23:59 Intake Total 9622 564 7176 990 Output Total 1000 1500 Balance 200 966 500 990 Meds/Results Medications: Active Medications Generic Name Dose Route Start Last Admin Trade Name Freq PRN Reason Stop Dose Admin Acetaminophen 650 mg 09/24/24 19:07 09/25/24 10:30 Acetaminophen 325 Mg Tablet PO 650 mg Q6H PRN Administration Mild Pain (1-3) Or Fever Albuterol 2 puff 09/24/24 19:07 Albuterol Sulfate (*Sp) Aerosol 1 Puff INHALATION Q6H PRN sob/wheezing Allopurinol 100 mg 09/25/24 09:00 09/28/24 08:33 Allopurinol 100 Mg Tablet PO 100 mg DAILY CESAR Administration Apixaban 2.5 mg 09/24/24 21:00 09/28/24 08:33 Apixaban 2.5 Mg Tablet PO 2.5 mg Q12HR CESAR Administration Atorvastatin Calcium 10 mg 09/25/24 09:00 09/28/24 08:33 Atorvastatin 10 Mg Tablet PO 10 mg DAILY CESAR Administration Benzonatate 200 mg 09/25/24 09:00 09/28/24 08:40 Benzonatate 100 Mg Capsule PO 200 mg TID PRN Administration Cough Bumetanide 1 mg 09/24/24 19:20 09/28/24 08:33 Bumetanide 1 Mg Tablet PO 1 mg BID CESAR Administration Cephalexin HCl 500 mg 09/26/24 11:50 09/28/24 08:33 Cephalexin 500 Mg Capsule PO 500 mg Q12HR CESAR Administration Dextrose 12.5 gm 09/24/24 16:08 Dextrose 50% 25 Gm/50 Ml Syringe IV PUSH PRN PRN Hypoglycemia Protocol Glucagon 1 mg 09/24/24 16:08 Glucagon For Inj 1 Mg Vial IM PRN PRN Hypoglycemia Protocol Glucose 15 gm 09/24/24 16:08 Glucose Oral Gel 15 Gm Of Glucse In 37.5 Gm Tube PO PRN PRN Hypoglycemia Protocol Dextrose 1,000 mls @ 100 mls/hr 09/24/24 16:08 Dextrose 5% 1,000 Ml IVPB PRN PRN Hypoglycemia Protocol Insulin Aspart 2 - 5 units 09/24/24 17:00 09/28/24 08:34 Insulin Aspart (*Bkc) 100 Units/Ml SUB-Q Not Given TIDWM CESAR Protocol Insulin Aspart 1 - 3 units 09/26/24 21:35 09/26/24 21:34 Insulin Aspart (*Bkc) 100 Units/Ml SUB-Q 1 units HS CESAR Administration Protocol Loperamide HCl 2 mg 09/24/24 18:40 Loperamide Hcl 2 Mg Capsule PO PRN PRN Diarrhea Midodrine 10 mg 09/24/24 19:07 09/28/24 08:33 Midodrine Hcl 10 Mg Tablet PO 10 mg WITH DIALYSIS PRN Administration hypotension with dialysis Midodrine 10 mg 09/24/24 19:08 09/28/24 11:11 Midodrine Hcl 2.5 Mg Tablet PO 10 mg TID PRN Administration Hypotension BP less than 90/50 Ondansetron HCl 4 mg 09/24/24 15:31 09/27/24 11:11 Ondansetron Inj 4 Mg/2 Ml Vial IV PUSH 4 mg Q4H PRN Administration Nausea Fluticasone/Salmeterol 2 puff 09/24/24 20:00 09/28/24 07:51 Fluticasone/Salmeterol 115-21 Mcg Inhaler 1 Puff INHALATION 2 puff Q12HRT CESAR Administration Sevelamer Carbonate 1,600 mg 09/25/24 08:00 09/28/24 08:33 Sevelamer Carbonate 800 Mg Tablet PO 1,600 mg TIDWM CESAR Administration Tramadol HCl 50 mg 09/24/24 19:07 Tramadol Hcl (*Crx) 50 Mg Tablet PO Q8H PRN PAIN RATED 4-6 Radiology Results: ITS Impressions Chest X-Ray 09/24/24 14:14 IMPRESSION: 1. Stable mild airspace opacities in the mid and lower lung zones, likely atelectasis. 2. Small right pleural effusion. 3. Cardiomegaly. Venous Doppler Study 09/26/24 14:48 IMPRESSION: 1. No deep venous thrombosis within the bilateral lower extremities. Duplex Scan Lower Extremity Artery 09/26/24 22:36 IMPRESSION: No hemodynamically significant stenosis detected bilaterally, as detailed above. Labs Labs: Laboratory Tests 09/28/24 06:23 09/28/24 06:23 Calcium 8.1 L Magnesium 2.0 Total Bilirubin 1.7 H AST 20 ALT 11 Alkaline Phosphatase 113 Total Protein 8.0 Albumin 3.6
[2024-09-28] MEDS: INSULIN ASPART (*BKC) 100 UNITS/ML SUB-Q (11:49)
--- NOTE | 2024-09-28 13:25 | PM.DS ---
DS: Admitting Diagnosis Discharge Date 09/28/2024 Admitting Diagnosis Not feeling well DS: Discharge Diagnosis Discharge Diagnosis (1) Chronic hypotension: Code(s): I95.89 - Other hypotension Status: Acute (2) Acute hyperkalemia: Code(s): E87.5 - Hyperkalemia Status: Acute (3) Elevated troponin: Code(s): R79.89 - Other specified abnormal findings of blood chemistry Status: Acute (4) ESRD (end stage renal disease) on dialysis: Code(s): N18.6 - End stage renal disease; Z99.2 - Dependence on renal dialysis Status: Acute (5) Diabetes: Qualifiers: Diabetes mellitus type: type 2 Diabetes mellitus intermediate project manager insulin use: without intermediate project manager use Diabetes mellitus complication status: with kidney complications Diabetes mellitus complication detail: with chronic kidney disease Chronic kidney disease stage: on chronic dialysis Qualified Code(s): E11.22 - Type 2 diabetes mellitus with diabetic chronic kidney disease; N18.6 - End stage renal disease; Z99.2 - Dependence on renal dialysis Code(s): E11.9 - Type 2 diabetes mellitus without complications Status: Chronic (6) Essential (primary) hypertension: Code(s): I10 - Essential (primary) hypertension Status: Chronic DS: Summary Hospital Course Hospital Course: 84 y/o M presents here with general malaise with PMH of ESRD on HD, CHF, AFib on Eliquis, chronic hypotension on midodrine, KEV not on CPAP, and diabetes. The patient presents here from his dialysis center for further evaluation of general malaise. He reports he has a history of ESRD on HD with treatment days on / at [facility] in [place]. Initially, the patient missed his treatment on Friday due to a pipe bursting at his facility. Reports he has had general malaise, cough, diarrhea, fine tremors to his bilateral hands that has been ongoing for 7 days. Today he was only able to complete 3/4 of his dialysis treatment due to feeling unwell - abdominal cramping and nausea, reports they were able to remove 2L but typically gets 3L off. He denies fever, chills, body aches, congestion, shortness of breath, chest pain, dizziness. Of note, the patient no longer makes urine. No known sick contacts. Initial VS at presentation: 98? F, HR 58, RR 20, 97/64, and 100% on RA. ED workup showed: No leukocytosis, hemoglobin 12.9 (previously 11.3 on 08/04/2024), K 5.5, creatinine 5.93 and GFR 9, lactic 1.7, calcium 7.3, and viral PCR negative. CXR showed stable mild airspace opacities in the mid and lower lung zones likely atelectasis, small right pleural effusion, and cardiomegaly. Initial EKG showed AFib with slow ventricular response, RBBB, consider in serial septal infarct age indeterminate, ST-T-wave abnormality in inferior/lateral leads consider ischemia. When compared to EKG done in July of 2024, heart rate has decreased. Chronic AFib off Coreg due to bradycardia. He has been back on Coreg. May be hypotension due to this medication leading to generalized weakness. On apixaban now. Heart rate stable off Coreg and will stop at discharge as we originally planned Chronic back pain status post back stimulator. This probably related to his back pain. Advised to see pain management/spine surgeon for further evaluation as an outpatient basis. Chronic hypotension on midodrine: Recently had diarrhea for the past 7 days likely hypotension worsened related to this. Received some fluid bolus and albumin in the ER. Will continue to monitor. Possible right leg cellulitis on cephalexin empirically Venous duplex negative for DVT arterial duplex shows no hemodynamically significant stenosis detected bilaterally. Will finish the course with cephalexin 5 more doses left. Acute hyperkalemia potassium of 5.5 treated with Lokelma. Underwent dialysis extra 09/25/2024.-normalized Elevated troponin flat trend mildly elevated likely due to underlying renal disease. Thrombocytopenia mild chronic Congestive heart failure chronic diastolic well compensated End-stage renal disease on hemodialysis inpatient hemodialysis per nephrology Chronic anemia with no obvious bleeding. Type 2 diabetes: SSI DVT prophylaxis on apixaban Code status full code Small pressure wound, less than 1 cm to buttocks. Wound during consulted. No signs of infection. Time Spent with Patient Time attestation: Total time spent providing and/or coordinating discharge services: 45 minutes Exam Narrative: GENERAL: Chronically ill not in acute distress awake and alert HEAD: [Normocephalic, atraumatic.] EYES: [PERRLA and EOMI.] ENT: Nares clear, no rhinorrhea or epistaxis. Mucous membranes moist. NECK: Supple. CHEST: [Clear to auscultation. No respiratory distress.] HEART: [Regular rate and rhythm]. No murmur heard. [Normal peripheral pulses.] ABDOMEN: Protuberant, soft, [nontender], [No rigidity or guarding] EXTREMITIES: Normal range of motion. 1+ edema to the extremities SKIN: Cool bilateral lower extremities which patient states is chronic, some thickening of the skin without any overlying cellulitis or ulceration right leg feels a bit darker but not anymore warm NEURO: [No focal deficits]. Alert and oriented [x3.] PSYCH: [Normal mood and affect.] DS: Data Data Completed and Pending Labs on day of discharge: Labs from last 24 hours 09/28/24 09/28/24 09/28/24 11:27 07:53 06:23 WBC 5.7 RBC 4.01 L Hgb 12.8 L Hct 40.8 L MCV 101.7 H MCH 31.9 MCHC 31.4 L RDW 15.8 H Plt Count 91 L MPV 11.0 H Immature Gran % (Auto) 0.7 H Neut % (Auto) 69.8 Lymph % (Auto) 12.0 L [place] % (Auto) 15.9 H Eos % (Auto) 0.9 Baso % (Auto) 0.7 Lymph # (Auto) 0.68 L [place] # (Auto) 0.9 H Eos # (Auto) 0.1 Baso # (Auto) 0.0 Abs Immat Gran (auto) 0.04 H Absolute Neuts (auto) 3.9 Absolute Nucleated RBC 0.000 Band Neutrophils % Not Reportable Nucleated RBC % 0.0 Platelet Estimate Decreased % Immature Plt Fraction 4.7 Macrocytosis 1+ Ovalocytes 1+ Schistocytes None seen Sodium 138 Potassium 4.2 Chloride 97 L Carbon Dioxide 26 Anion Gap 15 H BUN 30 H Creatinine 4.68 H Estim Creat Clear Calc 13 Estimated GFR 12 L Glucose 147 H POC Capillary Glucose 222 H 139 H Calcium 8.1 L Magnesium 2.0 Total Bilirubin 1.7 H AST 20 ALT 11 Alkaline Phosphatase 113 Total Protein 8.0 Albumin 3.6 09/27/24 09/27/24 09/27/24 20:33 16:39 13:30 WBC RBC Hgb Hct MCV MCH MCHC RDW Plt Count MPV Immature Gran % (Auto) Neut % (Auto) Lymph % (Auto) [place] % (Auto) Eos % (Auto) Baso % (Auto) Lymph # (Auto) [place] # (Auto) Eos # (Auto) Baso # (Auto) Abs Immat Gran (auto) Absolute Neuts (auto) Absolute Nucleated RBC Band Neutrophils % Nucleated RBC % Platelet Estimate % Immature Plt Fraction Macrocytosis Ovalocytes Schistocytes Sodium Potassium Chloride Carbon Dioxide Anion Gap BUN Creatinine Estim Creat Clear Calc Estimated GFR Glucose POC Capillary Glucose 202 H 199 H 114 H Calcium Magnesium Total Bilirubin AST ALT Alkaline Phosphatase Total Protein Albumin Imaging Radiologist's impression: ITS Impressions Chest X-Ray 09/24/24 14:14 IMPRESSION: 1. Stable mild airspace opacities in the mid and lower lung zones, likely atelectasis. 2. Small right pleural effusion. 3. Cardiomegaly. Venous Doppler Study 09/26/24 14:48 IMPRESSION: 1. No deep venous thrombosis within the bilateral lower extremities. Duplex Scan Lower Extremity Artery 09/26/24 22:36 IMPRESSION: No hemodynamically significant stenosis detected bilaterally, as detailed above. Discharge Plan Discharge Attending physician on discharge: Vijay Goldsmith Consulting providers: Brittany Johnson Discharging Clinician: Vijay Goldsmith Anticipated Discharge Date/Time: 09/28/24 13:09 Patient Disposition: Home Health Service Activity: as tolerated Patient Instructions: Antibiotic Form, Apixaban (By mouth), Heart Failure (GEN), Hyperkalemia (DC), End Stage Kidney Disease (DC) Patient Language: Trinidadian Stand Alone Forms: General Discharge Information Follow-up/Referrals: Ramez Ching MD [Primary Care Provider] - 1 Week Discharge Medications: New cephalexin 500 mg Capsule 500 mg PO Q12HR Qty: 5 0RF Continued albuterol sulfate 90 mcg/actuation HFA aerosol inhaler 2 puff inhalation Q6H PRN (Reason: sob/wheezing) acetaminophen 325 mg Tablet 650 mg PO Q6H PRN (Reason: Mild Pain (1-3) Or Fever) Qty: 30 0RF fluticasone propion-salmeterol [Advair Diskus] 250-50 mcg/dose blister with device 1 inh inhalation Q12H sevelamer carbonate [Renvela] 800 mg tablet 1,600 mg PO TIDWM Rx Instructions: must administer with a meal/food atorvastatin 10 mg tablet 10 mg PO DAILY Qty: 90 2RF Eliquis 2.5 mg tablet 2.5 mg PO Q12HR Qty: 180 1RF allopurinol 100 mg tablet 100 mg PO DAILY Qty: 90 3RF bumetanide 1 mg tablet 1 mg PO BID Qty: 60 5RF tramadol 50 mg tablet 50 mg PO Q8H PRN (Reason: pain) Qty: 90 0RF benzonatate 100 mg capsule See Rx Instructions .ROUTE .COMPLEX Qty: 60 0RF Dose Instruction: TAKE 1 TO 2 CAPSULES BY MOUTH THREE TIMES DAILY NEEDED FOR COUGH . DO NOT EXCEED 6 PER 24 HOURS Rx Instructions: TAKE 1 TO 2 CAPSULES BY MOUTH THREE TIMES DAILY NEEDED FOR COUGH . DO NOT EXCEED 6 PER 24 HOURS midodrine 10 mg tablet 10 mg PO WITH DIALYSIS PRN (Reason: hypotension with dialysis) Qty: 12 12RF Discontinued carvedilol 6.25 mg tablet 6.25 mg PO Q12H Date of admission: 09/25/24 16:23 Primary Care Provider: Ramez Ching Admitting Provider: Taz Jones Attending physician on admission: Taz Jones Condition: Stable Hospitalist MIPS Heart Failure (Exclusion) Patient has history of Heart Transplant or Left Ventricular Assistive Device?: No IF YES, STOP HERE Heart Failure (Qualifier) Patient has current or prior documentation of LVEF less than or equal to 40%, or mod/servere depressed LVSF?: No IF NO, STOP HERE
[2024-09-28 14:09] VITALS: BP 93/51; PULSE 78; RESP 20; TEMP 37.2; O2SAT 99
== END 2024-09-28 14:55 | disposition home health service (06) | DRG 640 ==
LOC: ANHED 15:37 → ANHIMU 17:19 → ANH3MEDSUR 09-28 13:10 → ANHIMU 09-30 14:11
PROVIDERS: Internal Medicine Nephrology; Student in an Organized Health Care Education/Training Program; Admitting Provider Internal Medicine; Emergency Provider Student in an Organized Health Care Education/Training Program; PCP Family Medicine; Visit Provider Internal Medicine
DX: E87.5 Hyperkalemia (principal); N18.6 End stage renal disease; I13.2 Hypertensive heart and chronic kidney disease with heart failure and with stage 5 chronic kidney disease, or end stage renal disease; I48.20 Chronic atrial fibrillation, unspecified; I50.32 Chronic diastolic (congestive) heart failure; I95.89 Other hypotension; I27.20 Pulmonary hypertension, unspecified; D69.6 Thrombocytopenia, unspecified; D63.8 Anemia in other chronic diseases classified elsewhere; D50.9 Iron deficiency anemia, unspecified; D51.9 Vitamin B12 deficiency anemia, unspecified; E11.22 Type 2 diabetes mellitus with diabetic chronic kidney disease; E11.40 Type 2 diabetes mellitus with diabetic neuropathy, unspecified; E78.2 Mixed hyperlipidemia; N40.0 Benign prostatic hyperplasia without lower urinary tract symptoms; G47.30 Sleep apnea, unspecified; Z20.822 Contact with and (suspected) exposure to COVID-19; Z99.2 Dependence on renal dialysis; Z79.01 Long term (current) use of anticoagulants; Z87.891 Personal history of nicotine dependence
CPT/HCPCS: 36415; 71045; 80048; 80053; 82948; 83036; 83605; 83735; 84100; 84145; 84484; 85025; 85055; 86706; 87340; 87637; 93005; 93925; 93970; 94640; 96361; 96366; 96367; 96374; 96375; 97161; 97165; 99285; A9270; G0257; G0378; J0612; J1815; J2405; J7030; J7120; P9047

== ENCOUNTER 2024-10-08 16:20 | Inpatient (IN) | payer MEDICARE, SELFPAY ==
[2024-10-08] VITALS (58 sets, daily range): BP systolic 62–130; BP diastolic 22–115; PULSE 64–89; RESP 13–35; TEMP 37.7; O2SAT 81–100
--- NOTE | ~2024-10-08 | XR_ITS ---
XR chest 1V portable Ordering provider: Vijay Goldsmith MD History: 84 years Male with . sob WEAKNESS . Comparison: October 24, 2024 FINDINGS: MEDIASTINUM: The cardiac silhouette is slightly enlarged. Prominent both brandy. Right PICC line with the tip overlying the right atrium. LUNGS: No effusions or pneumothorax. Bilateral basal opacification suggestive of atelectasis versus p neumonia more on the left side. Improvement compared to previous study is noted. Underlying pulmonary edema is not excluded. OTHER: No free air under the diaphragm. Spinal stimulator is noted. IMPRESSION: Minimal opacification the lung bases more on the left side suggestive of atelectasis versus pneumonia . Improvement compared to previous study is noted. Underlying pulmonary edema is not excluded. Reviewed, dictated and finalized at location A. IMPRESSION: Minimal opacification the lung bases more on the left side suggestive of atelec tasis versus pneumonia. Improvement compared to previous study is noted. Underl zonia pulmonary edema is not excluded.
--- NOTE | ~2024-10-08 | XR_ITS ---
CHEST RADIOGRAPH CLINICAL HISTORY: Shortness of breath . COMPARISON: 10/20/2024 TECHNIQUE: Single portable view of the chest. FINDINGS The cardiomediastinal silhouette is enlarged, unchanged. Feeding tube projecting over the mediastinum. Right upper extremity PICC line identified with its tip projecting over the right atrium. Dorsal column stimulator device is noted. Increased interstitial markings are identified bilaterally, findings suggesting moderate pulmonary va scular congestion. Hazy opacification of the right hemidiaphragm for which a small right-sided pleural effusion is suspe cted. IMPRESSION: Moderate pulmonary vascular congestion with a small right-sided pleural effusion. Persistent cardiome jorden. Reviewed, dictated and finalized at location A. IMPRESSION: Moderate pulmonary vascular congestion with a small right-sided pleural effusio n. Persistent cardiomegaly.
--- NOTE | ~2024-10-08 | XR_ITS ---
Portable chest x-ray Comparison: 10/15/2024 Clinical History: Respiratory failure Findings: Endotracheal tube and NG tube are in place. Small left pleural effusion probably present w ith left basilar airspace disease. There is central venous congestive change bilaterally. Cardiomedi astinal silhouette is stable. Bones and soft tissues are unremarkable. Impression: Small left pleural effusion with left lower lobe atelectasis versus pneumonia. Central venous congestive change. Support tubes, as above. Reviewed, dictated and finalized at location . Impression: Small left pleural effusion with left lower lobe atelectasis versus pneumonia. Central venous congestive change. Support tubes, as above.
--- NOTE | ~2024-10-08 | XR_ITS ---
Portable chest x-ray Comparison: 10/09/2024 Clinical History: Respiratory failure Findings: Endotracheal tube and NG tube are in satisfactory positions. There is probable central con gestive change. There is hazy right upper lobe airspace disease and probable left lower lobe airspace disease. Cardiomediastinal silhouette is stable. Bones and soft tissues are unremarkable. Impression: Probable right upper lobe and left lower lobe airspace disease. Correlate for bilateral pneumonia dylon nicki possibly pulmonary edema. Central congestive change. Support tubes, as above. Reviewed, dictated and finalized at location . Impression: Probable right upper lobe and left lower lobe airspace disease. Correlate for b ilateral pneumonia versus possibly pulmonary edema. Central congestive change. Support tubes, as above.
--- NOTE | ~2024-10-08 | XR_ITS ---
EXAMINATION: XR chest PICC line DATE: 10/20/2024 13:27 INDICATION: PICC line placement TECHNIQUE: frontal view of the chest was obtained. COMPARISON: Chest radiograph dated 10/20/2024 FINDINGS: Right upper extremity peripherally inserted central venous catheter (PICC) with distal tip at the cep halad superior vena cava. Airspace opacities at the right lower lung zone and at the medial aspect of the left lung base. The lateral left lower lung zone including costophrenic angle are excluded from the [id number]. No pleural effusion or pneumothorax. Cardiomegaly. Dobbhoff type nasoenteric feedi ng tube coiled in the body the stomach. Spinal stimulator leads project over the lower thoracic spine with distal tips at the level of T6-T7 and T8. IMPRESSION: 1. Right upper 70 PICC line tip at the cephalad superior vena cava approximately 7 cm above level of the superior cavoatrial junction. 2. Persistent bibasilar opacities which could represent atelectasis or pneumonia. Reviewed, dictated and finalized at location A. IMPRESSION: 1. Right upper 70 PICC line tip at the cephalad superior vena cava approximatel y 7 cm above level of the superior cavoatrial junction. 2. Persistent bibasilar opacities which could represent atelectasis or pneumoni a.
--- NOTE | ~2024-10-08 | XR_ITS ---
EXAMINATION: XR chest PICC line DATE: 10/20/2024 13:53 INDICATION: TECHNIQUE: COMPARISON: Chest radiograph dated FINDINGS: Right upper extremity peripherally inserted central venous catheter (PICC) with distal tip near the s uperior cavoatrial junction. Airspace opacities at the right lower lung zone and at the medial aspect of the left lung base. The lateral left lower lung zone. Portions of the lateral and a left lung are excluded from the [id number]. No evident pleural effusion or pneumothorax No pleural effusion or pneumothorax. Cardiomegaly. Dobbhoff type nasoenteric feeding tube coiled in the body the stomach. Sp inal stimulator leads project over the lower thoracic spine with distal tips at the level of T6-T7 an d T8. IMPRESSION: 1. Right upper extremity PICC line tip near the superior cavoatrial junction. 2. Persistent opacities in the right lower lung zone which could represent atelectasis or pneumonia. Reviewed, dictated and finalized at location A. IMPRESSION: 1. Right upper extremity PICC line tip near the superior cavoatrial junction. 2. Persistent opacities in the right lower lung zone which could represent atel ectasis or pneumonia.
--- NOTE | ~2024-10-08 | CT_ITS ---
CT brain wo con Ordering provider: Justyn Yoder MD History: 84 years Male with . AMS . Comparison: July 21, 2024 Technique: CT of the head without contrast. Radiation reduction technique utilized.The dose-length product was 681 mGy-cm. FINDINGS: BRAIN PARENCHYMA AND CSF SPACES: Mild leukoaraiosis and diffuse cortical atrophy. Mild atheromatous d isease. Hypodensity seen posterior to the left lateral posterior wall most likely old lacunar infarct unchanged from previous examination.. No midline shift, mass effect or hemorrhage. The brain parenc hyma and CSF spaces are otherwise normal. Empty sella turcica. VISUALIZED PARANASAL SINUSES: Bilateral ethmoid sinus disease otherwise, Well aerated. MASTOIDS: Well aerated. BONES: The bones appear intact. SOFT TISSUES: Visualized nasopharynx is normal. Superficial soft tissues are normal. IMPRESSION: No acute intracranial findings. Reviewed, dictated and finalized at location A. [employer]
--- NOTE | ~2024-10-08 | XR_ITS ---
Portable chest x-ray Comparison: 10/18/2024 Clinical History: Respiratory failure Findings: Moderate pulmonary edema pattern is present. Small right pleural effusion present. Cardio mediastinal silhouette is stable. Bones and soft tissues are unremarkable. Impression: Moderate pulmonary edema pattern with small right pleural effusion. Correlate clinically for pneumoni a. Reviewed, dictated and finalized at [facility]. Impression: Moderate pulmonary edema pattern with small right pleural effusion. Correlate c linically for pneumonia.
--- NOTE | ~2024-10-08 | XR_ITS ---
EXAMINATION: XR chest 1V portable DATE: 10/09/2024 05:32 INDICATION: Intubated. TECHNIQUE: A single frontal view of the chest was obtained. COMPARISON: Chest single view 10/08/2024 FINDINGS: There is mild elevation of right hemidiaphragm. There is mild atelectasis in the mid and lo wer lung zones. No pleural effusion or pneumothorax. Cardiomegaly is noted. The endotracheal tube tip is 3.4 cm above the will. The nasogastric tube tip is in the stomach. Epidural electrodes are note d. IMPRESSION: 1. Mild atelectasis in the mid and lower lung zones. 2. Cardiomegaly. Reviewed, dictated and finalized at location A. REPORTING CONSULTANT
--- NOTE | ~2024-10-08 | CT_ITS ---
CT diagnostic chest wo con Ordering provider: Justyn Yoder MD History: 84 years Male with . AMS . Comparison: July 21, 2024 Technique: CT chest without IV contrast. Radiation reduction technique utilized.The dose-length product was 648.50 mGy-cm. FINDINGS: VISUALIZED THORACIC INLET: Normal. MEDIASTINUM: Aorta/coronary arteries: Mild atheromatous disease. Heart/other: The heart is moderately enlarged. Lymph nodes: No mediastinal or hilar adenopathy. Endotracheal tube and nasogastric tube are noted. The nasogastric tube is not deep in the stomach LUNGS: Prominent markings in the lower lobes which may indicate pneumonitis. Edema is less likely. No pulmonary nodules or masses. No effusions. No pneumothorax. VISUALIZED UPPER ABDOMEN: Cholelithiasis. Hypodensity in the spleen most likely a cyst unchanged from previous examination and measures 5.3 cm. Small density in the right kidney most likely a cyst uncha nged. Small hypodensities are seen in the spleen. Otherwise, the visualized upper abdomen is normal. MUSCULOSKELETAL: Soft tissues: The superficial soft tissues are normal. Bones: Age appropriate degenerative changes of the spine. Spinal stimulator is noted. IMPRESSION: 1. Interstitial thickening in the lower lobes which may indicate pneumonitis. Edema is less likely. 2. Cardiomegaly. 3. Cholelithiasis 4. Splenic cysts unchanged. Reviewed, dictated and finalized at location A. [employer]
--- NOTE | ~2024-10-08 | XR_ITS ---
Portable chest x-ray Comparison: 10/14/2024 Clinical History: Respiratory failure Findings: Endotracheal tube and NG tube are in satisfactory positions. There is perihilar and left l ower lobe airspace disease. Cardiomediastinal silhouette is stable. Bones and soft tissues are unrem arkable. Impression: Perihilar and left lower lobe airspace disease. Correlate for pulmonary edema/atelectasis versus pneu monia. Support tubes, as above. Reviewed, dictated and finalized at location . Impression: Perihilar and left lower lobe airspace disease. Correlate for pulmonary edema/a telectasis versus pneumonia. Support tubes, as above.
--- NOTE | ~2024-10-08 | CT_ITS ---
CT chest abdomen pelvis wo con Ordering provider: Vijay Goldsmith History: . altered mental status, sepsis . Comparison: October 08, 2024 Technique: CT chest without IV contrast. CT abdomen and pelvis without oral and IV contrast. Radiation reduction technique utilized.The dose-length product was 1279.17 mGy-cm. FINDINGS: The study is limited due to lack of IV contrast. CHEST: --VISUALIZED THORACIC INLET: Normal as visualized. Right PICC line with the tip in the right atrium. Nasogastric tube is seen extending to the stomach. --MEDIASTINUM: Aorta/coronary arteries: Mild atheromatous disease. Heart/other: The heart is moderately enlarged. Congestive brandy. Lymph nodes: No mediastinal or hilar adenopathy. --LUNGS: Groundglass appearance is seen in the right upper lobe which may be atelectatic versus infectious dylon nicki edema. Minimal right pleural effusion. Opacification the right lower lobe is also noted suggestiv e of pneumonia. No pulmonary nodules or masses. No infiltrates or effusions. No pneumothorax. --MUSCULOSKELETAL: Soft tissues: The superficial soft tissues are normal. Bones: Age appropriate degenerative changes of the spine. Spinal stimulator. ABDOMEN/PELVIS: --MUSCULOSKELETAL: Bones: Age appropriate degenerative changes of the spine. Bilateral sacroiliitis. Fusion of multiple vertebrae is seen Superficial soft tissues: Small is bilateral hernia with bowel content. No obstruction is seen. The s uperficial soft tissues are normal. --UPPER ABDOMINAL ORGANS: Liver: Tiny cysts are seen unchanged from previous examination. Minimal fluid is seen around the live r Gallbladder: Cholelithiasis. Spleen: Cyst in the spleen unchanged. Stomach/duodenum: Normal. Pancreas: Normal. Adrenals: Normal. Kidneys: Cyst in the right kidney upper pole measuring 5 cm. Small calcified lesion in the right kidn ey upper pole unchanged and measures 1.2 cm. Follow-up advised. Multiple tiny stones in the right kid shauna. No hydronephrotic changes. Small cyst seen in the left kidney upper pole measuring 1.9 cm.. Mass is seen in the left kidney midp ole with calcification measuring 3 cm. Further evaluation advised. Cyst in the left kidney lower pole is also noted measuring 1.9 cm. Tiny stone in the left kidney lower pole is seen. --PELVIC ORGANS: The bladder is underfilled. No bladder stones. --BOWEL AND MESENTERY: Colon: No evidence of diverticulitis. No evidence of appendicitis. Small Bowel: Normal. No obstruction. Peritoneum/mesentery: No free air or free fluid. No mesenteric lymphadenopathy. --RETROPERITONEUM: Mild atheromatous disease of the abdominal aorta. No retroperitoneal lymphadenop athy. IMPRESSION: CHEST: 1. Cardiomegaly. 2. Groundglass appearance in the right upper lobe which may indicate atelectasis versus pneumonia ve rsus edema. 3. Opacification in the right lower lobe suggestive of pneumonia. ABDOMEN/PELVIS: 1. No evidence of appendicitis, diverticulitis or intestinal obstruction. 2. Rounded density seen in the left kidney midpole which may be a mass with calcification. Further e valuation advised. 3. Bilateral kidney cysts. Bilateral kidney stones. 4. Splenic cysts unchanged. 5. Cholelithiasis. 6. Anterior abdominal wall hernia with bowel content and no obstruction. Reviewed, dictated and finalized at location A. IMPRESSION: CHEST: 1. Cardiomegaly. 2. Groundglass appearance in the right upper lobe which may indicate atelectas is versus pneumonia versus edema. 3. Opacification in the right lower lobe suggestive of pneumonia. ABDOMEN/PELVIS: 1. No evidence of appendicitis, diverticulitis or intestinal obstruction. 2. Rounded density seen in the left kidney midpole which may be a mass with ca lcification. Further evaluation advised. 3. Bilateral kidney cysts. Bilateral kidney stones. 4. Splenic cysts unchanged. 5. Cholelithiasis. 6. Anterior abdominal wall hernia with bowel content and no obstruction.
--- NOTE | ~2024-10-08 | XR_ITS ---
XR chest 1V portable Ordering provider: Justyn Yoder MD History: 84 years Male with . SOA, CONFUSION . Comparison: September 24, 2024 FINDINGS: MEDIASTINUM: The cardiac silhouette is moderately enlarged. Congestive brandy. LUNGS: No effusions or pneumothorax. Bilateral interstitial thickening suggestive of pneumonia versus pulmonary edema. OTHER: No free air under the diaphragm. Spinal stimulator is seen in the midthoracic area. Degenerative joint. IMPRESSION: Cardiomegaly. bilateral interstitial pneumonitis versus pulmonary edema. Clinical correlation advised. Reviewed, dictated and finalized at location A. TECHNICIAN
--- NOTE | ~2024-10-08 | XR_ITS ---
Portable chest x-ray Comparison: 10/17/2024 Clinical History: Respiratory failure Findings: There is prominent central pulmonary venous congestive change and/or pulmonary hypertensio n, with mild central pulmonary edema. Probable minimal right pleural effusion. Cardiomediastinal corine houette is stable. Bones and soft tissues are unremarkable. Impression: Mild central pulmonary edema with prominent central pulmonary venous congestive change and/or pulmona ry hypertension. Minimal right pleural effusion. Stable cardiomegaly. Reviewed, dictated and finalized at location M. Impression: Mild central pulmonary edema with prominent central pulmonary venous congestive change and/or pulmonary hypertension. Minimal right pleural effusion. Stable cardiomegaly.
--- NOTE | ~2024-10-08 | XR_ITS ---
Portable chest x-ray Comparison: 10/19/2024 Clinical History: Respiratory failure Findings: Stable feeding tube. There is central congestive change and probable mild pulmonary edema. Minimal right pleural effusion. Cardiomediastinal silhouette is stable. Bones and soft tissues are u nremarkable. Impression: Central congestive change with mild pulmonary edema and minimal right pleural effusion. Stable cardiomegaly. Reviewed, dictated and finalized at location . Impression: Central congestive change with mild pulmonary edema and minimal right pleural e ffusion. Stable cardiomegaly.
--- NOTE | ~2024-10-08 | XR_ITS ---
XR chest 1V portable Ordering provider: Sydnie Mercer MD History: 84 years Male with . Acute respiratory failure . Comparison: October 16, 2024 FINDINGS: MEDIASTINUM: The cardiac silhouette is moderately enlarged. Chest tube is removed in the interval. Na sogastric tube ultrasound is removed. Congestive brandy. LUNGS: No effusions or pneumothorax. Opacification in the right lower lobe area is noted suggestive o f atelectasis versus pneumonia. Bilateral interstitial changes. OTHER: No free air under the diaphragm. Degenerative changes of the spine. Spinal stimulator is seen in the midthoracic area. IMPRESSION: Right basilar atelectasis versus pneumonia. Bilateral interstitial changes which may indicate pneumonitis versus pulmonary edema. Clinical correl ation and follow-up advised. Reviewed, dictated and finalized at location A. IMPRESSION: Right basilar atelectasis versus pneumonia. Bilateral interstitial changes which may indicate pneumonitis versus pulmonary edema. Clinical correlation and follow-up advised.
--- NOTE | ~2024-10-08 | XR_ITS ---
EXAMINATION: XR chest 1V portable DATE: 10/26/2024 05:57 INDICATION: Shortness of breath. TECHNIQUE: A single frontal view of the chest was obtained. COMPARISON: Chest single view 10/25/2024, chest CT 10/25/2024 FINDINGS: There is chronic elevation of right hemidiaphragm. There are airspace opacities in the mid and lower lung zones. No pleural effusion or pneumothorax. Cardiomegaly is noted. A right upper extre mity peripherally inserted central venous catheter (PICC) is seen with tip in the right atrium. The n asoenteric tube tip is beyond the inferior margin of the radiograph, but at least to the stomach. Epi dural electrodes are noted. IMPRESSION: 1. Stable airspace opacities in the mid and lower lung zones, consistent with atelectasis versus pneu monia. 2. Cardiomegaly. Reviewed, dictated and finalized at location A. IMPRESSION: 1. Stable airspace opacities in the mid and lower lung zones, consistent with a telectasis versus pneumonia. 2. Cardiomegaly.
--- NOTE | ~2024-10-08 | XR_ITS ---
HISTORY: FEMORAL CENTRAL LINE COMPARISON: None TECHNIQUE: Portable supine view of the pelvis was performed. FINDINGS: Central venous catheter projecting over the left groin. Significant fecal stasis within the rectum. Multiple loops of dilated small bowel with mural thickening within the abdomen. Spinal stimulator projects over the left lateral hip. Significant degenerative disease within the bilateral femoral acetabular joint spaces with superior l ateral sclerosis and joint space narrowing consistent with osteoarthritis. IMPRESSION: As above. Reviewed, dictated and finalized at location A. E COMPANION IMPRESSION: As above.
--- NOTE | ~2024-10-08 | CT_ITS ---
CT brain wo con Ordering provider: Vijay Goldsmith MD History: 84 years Male with . ams . Comparison: October 08, 2024 Technique: CT of the head without contrast. Radiation reduction technique utilized.The dose-length product was 681 mGy-cm. FINDINGS: BRAIN PARENCHYMA AND CSF SPACES: Mild leukoaraiosis and diffuse cortical atrophy. Mild atheromatous d isease. No midline shift, mass effect or hemorrhage. The brain parenchyma and CSF spaces are otherwi se normal. Empty sella turcica. VISUALIZED PARANASAL SINUSES: Well aerated. MASTOIDS: Well aerated. BONES: The bones appear intact. SOFT TISSUES: Visualized nasopharynx is normal. Superficial soft tissues are normal. IMPRESSION: No acute intracranial findings. Reviewed, dictated and finalized at location A.
--- NOTE | ~2024-10-08 | XR_ITS ---
EXAMINATION: XR abdomen gastric tube rechec DATE: 10/13/2024 09:40 INDICATION: Orogastric tube repositioning. TECHNIQUE: A supine view of the abdomen was obtained. COMPARISON: Chest CT 10/08/2024 FINDINGS: The lower abdomen is excluded. The nasogastric tube tip is in the stomach. Epidural electro ashley are noted. IMPRESSION: 1. Nasogastric tube tip in the stomach. Reviewed, dictated and finalized at location B.
--- NOTE | ~2024-10-08 | XR_ITS ---
XR chest ET placement Ordering provider: Justyn Yoder History: 84 years Male with . ET PLACEMENT . Comparison: October 18, 2024 FINDINGS: MEDIASTINUM: The cardiac silhouette is moderately enlarged. Endotracheal tube with the tip 3.8 cm abo ve the will. Prominent brandy. LUNGS: No infiltrates, effusions or pneumothorax. Bilateral interstitial changes. OTHER: No free air under the diaphragm. IMPRESSION: Cardiomegaly with prominent brandy. Bilateral interstitial changes. Pneumonitis cannot be excluded. Reviewed, dictated and finalized at location A. AIN DRIER
--- NOTE | ~2024-10-08 | XR_ITS ---
Portable chest x-ray Comparison: 10/12/2024 Clinical History: Respiratory failure Findings: Endotracheal tube, NG tube are in satisfactory positions. There is moderate to advanced pu lmonary edema pattern with small bilateral pleural effusions, right greater than left. Cardiomediast inal silhouette is stable. Bones and soft tissues are unremarkable. Impression: Moderate to advanced pulmonary edema pattern with small bilateral pleural effusions. Correlate clinic ally for pneumonia. Support tubes, as above. Reviewed, dictated and finalized at location . Impression: Moderate to advanced pulmonary edema pattern with small bilateral pleural effus ions. Correlate clinically for pneumonia. Support tubes, as above.
--- NOTE | ~2024-10-08 | XR_ITS ---
Portable chest x-ray Comparison: 10/11/2024 Clinical History: Respiratory failure Findings: Endotracheal tube and NG tube are in satisfactory positions. There is moderate pulmonary e bisi pattern with small bilateral pleural effusions. There is discoid right mid lung atelectasis. Ca rdiomediastinal silhouette is stable. Bones and soft tissues are unremarkable. Impression: Moderate pulmonary edema pattern with small pleural effusions and discoid right mid lung atelectasis. Correlate clinically for pneumonia. Stable support tubes. Reviewed, dictated and finalized at [facility]. Impression: Moderate pulmonary edema pattern with small pleural effusions and discoid right mid lung atelectasis. Correlate clinically for pneumonia. Stable support tubes.
--- NOTE | ~2024-10-08 | XR_ITS ---
Exam: Abdomen 1V HISTORY: OG placement COMPARISON: 10/13/2024 at 9:20 AM TECHNIQUE: Supine images of the lower chest and upper abdomen FINDINGS: Nasogastric tube extends into the left upper quadrant, presumably within the stomach. IMPRESSION: Nasogastric tube in good position and ready for immediate use. Reviewed, dictated and finalized at location A.
--- NOTE | ~2024-10-08 | XR_ITS ---
EXAMINATION: XR fl Dobhoff insert/rad w img DATE: 10/19/2024 12:25 INDICATION: Dobbhoff placement required due to failed modified swallow study. TECHNIQUE: A Dobbhoff type feeding tube was advanced into the proximal most duodenum utilizing intermittent fluo roscopy. 20 mL Omnipaque 350 water-soluble contrast was utilized date delineation of the anatomy. Mul tiple attempts at further advancement were unsuccessful so some redundancy of the catheter was placed in the stomach to allow for subsequent further passive advancement with peristalsis. Final image dem onstrates the feeding tube in position with the weighted tip at the proximal most duodenum. The tube was flushed with 10 mL sterile saline and fixed to the nares with adhesive tape. The wire was removed and the catheter was flushed with 10 mL saline. A single fluoroscopic image was recorded. The amount of fluoroscopy time used during this procedure was 4.1 minutes. There were no immediate complication s. Total DAP was 63.782 Gycm^2 FINDINGS/IMPRESSION: Successful fluoroscopy-guided Dobbhoff feeding tube placement with distal tip in the proximal most du odenum but with sufficient redundancy in the stomach to allow for some additional passive advancement . Reviewed, dictated and finalized at location A.
--- NOTE | ~2024-10-08 | XR_ITS ---
Portable chest x-ray Comparison: 10/13/2024 Clinical History: Respiratory failure Findings: Endotracheal tube and NG tube are in satisfactory positions. There is mild bibasilar hazin ess. Probable minimal right pleural effusion. Cardiomediastinal silhouette is stable. Bones and soft tissues are unremarkable. Impression: Probable mild bibasilar pulmonary edema and minimal right pleural effusion. Correlate currently for p neumonia. Support tubes, as above. Reviewed, dictated and finalized at location . Impression: Probable mild bibasilar pulmonary edema and minimal right pleural effusion. Cor relate currently for pneumonia. Support tubes, as above.
--- NOTE | ~2024-10-08 | XR_ITS ---
Portable chest x-ray Comparison: 10/10/2024 Clinical History: Respiratory failure Findings: Endotracheal tube and NG tube are in satisfactory positions. Small bilateral pleural effus ions are present with extensive bibasilar and perihilar airspace disease. Cardiomediastinal silhouet te is stable. Bones and soft tissues are unremarkable. Impression: Moderate pulmonary edema and bibasilar atelectasis versus bilateral pneumonia. Findings are worsened from prior exam.. Correlate clinically. Small bilateral pleural effusions. Support tubes, as above. Reviewed, dictated and finalized at location . Impression: Moderate pulmonary edema and bibasilar atelectasis versus bilateral pneumonia. Findings are worsened from prior exam.. Correlate clinically. Small bilateral pleural effusions. Support tubes, as above.
--- NOTE | ~2024-10-08 | XR_ITS ---
MODIFIED ESOPHAGRAM HISTORY: Recent intubation TECHNIQUE: Modified barium esophagram was performed on 10/18/2024. I administered fluoroscopy and perf ormed the exam with speech pathologist. Patient was seated for lateral fluoroscopic imaging for ni stion of thin liquids, pudding, solids and quantified amounts, followed by thin liquids in uncontroll ed amounts. This was recorded on tape. A single fluoroscopic spot image was also recorded. The DAP fo r this procedure was 1.572 Gycm2. The amount of fluoroscopy time used during this procedure was 1.9 m inutes. FINDINGS: Oral stage: Reduced labial seal/lip tension. Reduced lingual movement.. Pharyngeal stage: Reduced laryngeal elevation and adduction. There is piriform sinus residue. Larynge al penetration during swallow with subsequent aspiration. Cervical/esophageal stage: Adequate function. IMPRESSION: Oropharyngeal dysphagia including laryngeal penetration with aspiration. Please correlat e with speech pathologist findings and specific feeding recommendations. Reviewed, dictated and finalized at location A. IMPRESSION: Oropharyngeal dysphagia including laryngeal penetration with aspira tion. Please correlate with speech pathologist findings and specific feeding r ecommendations.
--- NOTE | 2024-10-08 16:29 | ECG_ITS ---
Test Date: 2024-10-08 18:42:33 Measurements Intervals [place] Rate: 80 P: 0 NH: 0 QRS: 118 QRSD: 154 T: -64 QT: 412 QTc: 476 Interpretive Statements ATRIAL FIBRILLATION WITH ABERRANT CONDUCTION OR VENTRICULAR PREMATURE COMPLEXES MARKED RIGHT AXIS DEVIATION [QRS AXIS > 100] RIGHT BUNDLE BRANCH BLOCK [120+ ms QRS DURATION, UPRIGHT V1, 40+ ms S IN I/aVL/V4/V5/V6] ABNORMAL ECG Compared to ECG 09/24/2024 15:41:22 NO SIGNIFICANT DIFFERENCE Electronically Signed On 10-09-2024 15:36:10 INGREDIENT MIXER by Jameel Gutierrez M.D.
--- OUTSIDE RECORDS SUMMARY | 2024-10-08 16:53 | XMS_ITS | Clinical Summary ---
Author Organization [facility] [place] [address] Address [address] [place] [address] Care Team Providers Care Well Drill Operator Rotary Drill Name Role Phone Ramez Ching MD Primary Care Provider Brittany Johnson MD Unavailable [phone] Allergies No known active allergies Medications [...] s:Acute on chronic diastolic congestive heart failure (HCC) Take 1 tablet (5 mg total) [...] 6.25 mg tabletIndication s:Longstanding persistent atrial fibrillation (HCC),Hypertensi on associated with diabetes (HCC) Take [...] been referred by Dr. Paez undergo his hoop punch and coiler operator to discuss permanent access creation. Fistula versus [...] Hyperlipidemia associated with type 2 diabetes m sarahitus 11/09/2021 Assessment & Plan (05/18/2024 8:34 AM [...] arm swelling 08/13/2021 Longstanding persistent atrial fibrillation 10/03 Chronic anticoagulation 10/26/2020 Chronic kidney disease 10/26/2020 Encounters Date Type Department Care Team Description 08/26/2024 Telephone [facility] Cardiology [address] [place] [address] Anil Medina MD 07/26/2024 Orders Only [facility] Cardiology [address] [place] [address] Lluvia Fowler NP from Last 3 Months Surgical History Surgery Date Site/Laterality Comments CENTRAL VENOUS CATHETER INSERTION 06/04/2023 - 07/03/2023 right neck- perma cath JOINT REPLACEMENT Bilateral BL knees SPINAL CORD STIMULATOR IMPLANT 5 years ago-lower left hip CATARACT EXTRACTION Bilateral COLONOSCOPY TUNNELED VENOUS CATHETER PLACEMENT 06/04/2023 - 07/03/2023 Right [facility] DIALYSIS FISTULA CREATION 04/13/2024 Left LUE brachial axillary AVG creation - Dr. Chintan Yousif Medical History Medical History Date Comments CHF (congestive heart failure) (HCC) Atrial fibrillation (HCC) Hypertension per patient late ly his BP runs low Hyperlipidemia Diabetes mellitus (HCC) SOB (shortness of breath) Gout Type 2 diabetes mellitus (HCC) Dialysis patient [id number] Neuropathy History of blood transfusion yea rs ago Uses walker Status post insertion of spi nal cord stimulator Permanent central venous catheter in place RIJ ESRD (end stage renal diseas e) on dialysis (HCC) Social History Tobacco Use Types Packs/Day Years [...] on file Legal Sex Male 12:47 AM COUNTER POCKET TRIMMER Gender Identity Not on file Sexual Orientation [...] 04/13/2024, 05/16/2022 Medical Devices Implanted Type Area Forensic Engineer Device Identifier Shelf Expiration Date Model / Serial / Lot [employer] 4-7mm 45cm Stretch Peripheral Standard Dynamicist Graft Vascular [id number] - [id number] - [id number] Implanted:Qty: 1 on 04/13/2024 by Chintan Yousif MD at [facility] Graft Left: Arm [employer] [id number] 09/01/2028 [id number] / [id number] / Spinal Cord Stomulater Left: Hip Joint Replacement Bilatera l: Knee Perma Cath Right: Neck Lens Bilatera l: Eye Procedures Procedure Name Priority Date/Time Associated Diagnosis Comments CARDIOLOGY DOCUMENT SCAN Routine 07/13/2024 1:40 PM COUNTER POCKET TRIMMER EGFR STAT 04/13/2024 6:07 AM CDT from Last 3 Months or Most Recently Relevant to Health Maintenance Results * Cardiology Document Scan (07/13/2024 1:40 PM COUNTER POCKET TRIMMER) Anatomical Region Laterality Modality Other Lluvia Fowler [...] LAB BLOOD ORDERABLES Final Resul t [facility] [address] [facility] Department [place] [address] from Last 3 Months or Most Recently Relevant to Health Maintenance Insurance MEDICARE SOLUTIONS MEDICARE SOLUTIONS Care Teams Well Drill Operator Rotary Drill Relationship Specialty Start Date End Date Ramez Ching MD [address] [place] [address] PCP - General Family Medicine 10/08/20 Brittany Johnson MD [address] [facility] [address] [place] [address] Referring Physician Nephrology 03/17/24
--- OUTSIDE RECORDS SUMMARY | 2024-10-08 16:54 | XMS_ITS | Referral Summary ---
Author Organization [facility] [place] [address] [place] [address] [address] [place] [address] Care Team Providers Care Flyer Maker Name Role Phone Ramez Ching MD Primary Care Provider Brittany Johnson MD Unavailable [phone] Encounters Date Type Department Care Team Description 08/26/[address] [facility] Medical [facility] Cardiology [address] [place] [address] Anil Medina MD 07/26/[address] [facility] Medical [facility] Cardiology [address] [place] [address] [address] [place] [address] Lluvia Fowler NP from Last [...] been referred by Dr. Paez undergo his computer operations analyst to discuss permanent access creation. 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 Gender Identity Not on file Sexual Orientation [...] on file Medical Devices Implanted Type Area Research Manager Device Identifier Shelf Expiration Date Model / Serial / Lot [employer] 4-7mm 45cm Stretch Peripheral Standard Fleet Coordinator Graft Vascular [id number] - [id number] - [id number] Implanted:Qty: 1 on 04/13/2024 by Chintan Yousif MD at [facility] Graft Left: Arm [employer] [id number] 09/01/2028 [id number] / [id number] / Spinal Cord Stomulater Left: Hip Joint Replacement Bilatera l: Knee Perma Cath Right: Neck Lens Bilatera l: Eye Procedures Procedure Name Priority Date/Time Associated Diagnosis Comments CARDIOLOGY DOCUMENT SCAN Routine 07/13/2024 1:40 PM FACILITIES ENGINEER EGFR STAT 04/13/2024 6:07 AM CDT from Last 3 Months or Most Recently Relevant to Health Maintenance Results * Cardiology Document Scan (07/13/2024 1:40 PM FACILITIES ENGINEER) Anatomical Region Laterality Modality Other us Lluvia [...] MD LAB BLOOD ORDERABLES Final Resul t [place] [id number] [facility] Department [place] [address] from Last 3 Months or Most Recently Relevant to Health Maintenance Insurance MEDICARE SOLUTIONS [facility] MEDICARE Address: [facility] [address] [place] [address] MEDICARE [employer] [facility] MEDICARE Address: [facility] [address] [place] [address] Care Teams Flyer Maker Relationship Specialty Start Date End Date Ramez Ching MD [address] [facility] [address] [place] [address] PCP - General Family Medicine 10/08/20 Brittany Johnson MD [address] [facility] [address] [place] [address] Referring Physician Nephrology 03/17/24
--- OUTSIDE RECORDS SUMMARY | 2024-10-08 16:54 | XMS_ITS | Encounter Summary ---
Author Organization [facility] Healthcare Address [address] [place] [address] Care Team Providers Care Frog Farmer Name Role Phone Ramez Ching MD Primary Care Provider Brittany Johnson MD Unavailable [phone] Encounter Details Date Type Department Care Team (Late st Contact Info) Description 04/07/2024 Telephone [facility] at [facility] [address] [facility] [address] [place], [place] [id number] Chintan Yousif MD [address] [place] [address] [address] [place] [address] Social History Tobacco Use Types Packs/Day Years [...] on file Legal Sex Male 12:47 AM TOW FEEDER Gender Identity Not on file Sexual Orientation Not on file documented as of this encounter Plan of Treatment Not on file documented as of this encounter Visit Diagnoses Not on filedocumented in this encounter Care Teams Frog Farmer Relationship Specialty Start Date End Date Ramez Ching MD [address] [facility] [address] [place] [address] PCP - General Family Medicine 10/08/20 Brittany Johnson MD [address] [facility] [address] [place] [address] Referring Physician Nephrology 03/17/24 documented as of this encounter
--- OUTSIDE RECORDS SUMMARY | 2024-10-08 16:54 | XMS_ITS | Clinical Summary ---
Author Organization [facility] Address [address], [place] [address] Phone Care Team Providers Care Director Of Business Development Name Role Phone Ramez Ching MD Primary Care Provider [phone] Allergies No known active allergies Medications Medication [...] 2006 Influenza Vaccine (#1) 2024 Care Teams Director Of Business Development Relationship Specialty Start Date End Date Ramez Ching MD [address] [facility] [address] [facility] [address] [place] [address] PCP - General Internal Medicine 03/21/22
--- OUTSIDE RECORDS SUMMARY | 2024-10-08 16:55 | XMS_ITS | Continuity of Care Document ---
Author Organization [facility] Address [address] [place] [address] Phone Care Team Providers Care Nurse Gynecology Name Role Phone Dre SHAFFER, Roque Unavailable [...] Diagnoses Date Provider Providers Copied on Encounter [facility], [address] [place] [address], [id number], tel:[phone] [facility] No Information Dre Culpo. [address] [place] [address], [id number], . tel:[phone] [facility], [address] [place] [address], [id number], tel:[phone] [facility] Dre Culpo. [address] [place] [address], [id number], . tel:[phone] Referring Provider: Paula Johnson, [address] [facility] [address] [facility], [place], [address]. tel:[phone] As per patient privacy policy some of the clinical information may not be visible. Family History Family Member Type Diagnosis Age At Onset No Information Payers Payer name Insurance type Covered libertarian ID Authoriza tion(s) No Information Social History Type Description Quantity Date Captured Comments Sex Male Smoking Status No Information Gender Identity Male Chief Complaint And Reason For Visit No Information Reason For Referral Reason For Referral No Information Plan Of Treatment Date Type Action Status Future Order: Radiology Order Up per Body Flouroscopy ([id number]), Ordered on: Ordered History Of Present Illness Encounter Date Complaint History Of Prese nt Illness No Information Functional Status Date Functional Assessmen t No Information Instructions Date Instruction Additional Infor mation No Information Assessments Type Assessment Date No Information Patient Care Teams Name Effective Dates (start - stop) Status Members No Information
--- OUTSIDE RECORDS SUMMARY | 2024-10-08 16:55 | XMS_ITS | Continuity of Care Document ---
Author Organization [facility] Address [address] [place] [address] Phone Care Team Providers Care Aegis Console Operator Track Name Role Phone Gladys Sheikh Unavailable Unavailable Procedures Procedure Date Office/outpatient Visit, Est Dilated Retinal Exam W Interpretation Ar Office/outpatient Visit, Est Dilated Retinal Exam W [...] Providers Copied on Encounter Office/outpat ient Visit, [facility] [place], [address], [place], [place], [id number], [place] tel:[phone] [facility] No Information Oct- 0-201 0 Kori Graham. [address] , [address], [place], [address], [place]. tel:[phone] Office/outpat ient Visit, [facility] [place], [address], [place], [place], [id number], [place] tel:[phone] [facility] No Information Sep-2 0-200 9 Sheikh Gladys. [address] , [address], [place], [place], [facility], [place]. tel:[phone] [facility], [address], [place], [place], [id number], [place] tel:[phone] [facility] No Information 2 2-200 8 Sheikh Gladys. [address] , [address], [place], [place], [facility], [place]. tel:[phone] [facility], [address], [place], [place], [id number], [place] tel:[phone] [facility] No Information Mar-0 1-200 8 Sheikh Gladys. [address] , [address], [place], [place], [facility], [place]. tel:[phone] [facility], [address], [place], [place], [id number], [place] tel:[phone] [facility] No Information 4200 8 Sheikh Gladys. [address], [place], [place], [facility], [place]. tel:[phone] [facility], [address], [place], [place], [id number], [place] tel:[phone] [facility] No Information 2 4-200 8 Eisenberg OD Wong. [address], [place], [facility], [place]. tel:[phone] [facility], [address], [place], [place], [id number], [place] tel:[phone] [facility] No Information 1 5-200 8 Sheikh Gladys. [address] , [address], [place], [address], [place]. tel:[phone] Referring Provider: Ramez Ching MD, [address], [place], [address]. tel:[phone] [facility], [address], [place], [place], [id number], [place] tel:[phone] [facility] No Information 7 Kori Graham. [address] , [address], [place], [address], [place]. tel:[phone] Referring Provider: Ramez Ching MD, [address], [place], [address]. tel:[phone] Family History Family Member Type Diagnosis Age At Onset No Information Payers Payer name Insurance type Covered republican ID Authoriza tion(s) Medicare [facility] [id number] Social History Type Description Quantity Date Captured [...]
[2024-10-08] MEDS: ACETAMINOPHEN 325 MG TABLET 650 MG PO (17:23)
[2024-10-08 17:24] LABS: Hematocrit 41.6 % (42.0-52.0); Hemoglobin 13.3 g/dL (14.0-18.0); Immature Platelet Fraction Pct 9.4 % (0.9-11.2); Mean Corpuscular Hemoglobin 31.4 pg (26-34); Mean Corpuscular Volume 98.1 fl (80-100); Mean Platelet Volume 12.3 fl (7.4-10.4); Platelet Count Result 54 k/mm3 (150-375); Red Blood Count 4.24 M/mm3 (4.6-6.20); Red Cell Distribution Width 16.1 % (11.5-14.5); White Blood Count 7.9 K/mm3 (4.5-10.0)
--- NOTE | 2024-10-08 17:24 | ED.AMS ---
HPI - Altered Mental Status General Chief Complaint: Altered Mental Status Stated Complaint: ams Time Seen by Provider: 10/08/24 16:40 History of Present Illness HPI narrative: Patient is an 84-year-old male who presents to the ER with new altered mental status after dialysis. It is unknown how much fluid was taken off. He typically takes midodrine prior to his dialysis due to low blood pressures. He has had a cough over last few days. He has an elevated temperature here. Oriented x1. Related Data Home Medications ?Medication ?Instructions ?Recorded ?Confirmed ?Last Taken ?Type albuterol sulfate 90 mcg/actuation 2 puff inhalation Q6H PRN 07/12/24 09/24/24 Unknown History aerosol inhaler sob/wheezing fluticasone 250 mcg-salmeterol 50 1 inh inhalation Q12H 07/21/24 09/24/24 Unknown History mcg/dose blistr powdr for inhalation (Advair Diskus) sevelamer carbonate 800 mg tablet 1,600 mg PO TIDWM 09/24/24 09/24/24 Unknown History (Renvela) Allergies Allergy/AdvReac Type Severity Reaction Status Date / Time No Known Allergies Allergy Verified 10/08/24 17:11 Review of Systems Review of Systems: ROS unobtainable: Yes unobtainable due to mental status PMFSH Past Medical History Medical History Shingles Benign prostatic hyperplasia Vitamin D deficiency Secondary renal hyperparathyroidism Chronic anticoagulation Atrial fibrillation with slow ventricular response Pulmonary hypertension Congestive heart failure 07/2024: Hyperdynamic systolic function, estimated EF 70%, severely dilated right ventricle. Gout Sleep apnea intolerant of CPAP End-stage renal disease on hemodialysis Anemia of chronic disease Umbilical hernia Iron deficiency anemia B12 deficiency anemia Essential (primary) hypertension Mixed hyperlipidemia Type 2 diabetes mellitus with diabetic neuropathy Surgical History Surgical History Status post insertion of spinal cord stimulator History of cataract extraction with lens replacement History of bilateral knee arthroplasty Normal colonoscopy (~2007) Family History Family History Father Cerebrovascular accident Mother Hypertension Sibling Hypertension Other Kidney disease, chronic, end stage on dialysis Social History Social History (Reviewed 10/08/24 @ 21:28 by ROM Keller Social History: Surrogate medical decision maker: Kathy Yanez, spouse. Code status: Full code. Smoking packs per day: 0.5 Smoking cigarettes per day: 10.0 Years smoked: 5 Smoking pack-years: 2.50 Smoking status: Former smoker Second hand tobacco smoke exposure: Yes Alcohol intake: never Substance use: never Substance use type: unknown Do You Feel Safe in your Home?: Yes Lack of Transportation: No Lack of Food: Never True Current Housing: I Have Housing Concerned About Future Housing: No Difficulty Paying Gas/Electric Bills: No Difficulty Paying for Meds: No Currently Unemployed: No Education: Bachelor's Degree Difficulty w/ Childcare or Family Care: No Living arrangements: with family Additional living arrangements comments: Lives with spouse of nearly 60 years. They have a son and daughter. 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 Spiritual care concerns: No Exam Narrative: GENERAL: Ill-appearing, well-nourished, and in mild distress. HEAD: Normocephalic, atraumatic. ENT: Mucous membranes moist. CHEST: Bilateral rales posteriorly. No respiratory distress. HEART: Regular rate and rhythm. Normal peripheral pulses. ABDOMEN: Soft, nontender, nondistended. EXTREMITIES: Normal range of motion. 3+ edema. SKIN: Warm, dry, no rash. NEURO: Alert and oriented x1. PSYCH: Normal mood and affect. Course Course Emergency Course: Attempted central line catheter placement in right inguinal region but patient would not tolerate was thrashing. He was intubated for protection and management of his illness. His consented to these procedures. He has been accepted to the ICU and has been accepted by the hospitalist service. Dr. Piña requests CT of brain/chest. Patient did not receive full 30 milliliter/kilogram IV fluid bolus due to the fact that he is dialysis dependent it would likely become significantly fluid overloaded. Vital Signs Vital signs: Vital Signs Temperature 99.8 F H 10/08/24 16:30 Pulse Rate 87 10/08/24 16:30 Respiratory Rate 22 H 10/08/24 16:30 Blood Pressure 72/37 L 10/08/24 16:30 Pulse Oximetry 95 10/08/24 16:30 Oxygen Delivery Nasal Cannula 10/08/24 16:30 Oxygen Flow Rate 2 10/08/24 16:30 Temperature 99.8 F H 10/08/24 16:30 Pulse Rate 71 10/08/24 21:35 Respiratory Rate 18 10/08/24 21:14 Blood Pressure 68/45 L 10/08/24 21:35 Pulse Oximetry 93 10/08/24 18:56 Oxygen Delivery High Flow Therapy with Nasal Cannula 10/08/24 18:56 Oxygen Flow Rate 2 10/08/24 18:56 Procedures Central Line Placement Left Femoral: Central Line Date: 10/08/24 Central Line Time: 21:29 Discussed w/ the patient/family/POA,the placement of a central venous catheter, including its clinical necessity/indication & associated potential risks, benifits and alternatives.: Yes Patient Placed on Monitor/Pulse Ox: Yes Max. Sterile Barrier Technique: Caps, large sterile sheet and hand hygiene Central Line Prep: 2% chlorhexidine scrub Technique: sterile prep/drape Local Anesthetic: lidocaine 1% Amount of anesthesia used (mL): 3 Central Line Lumen Inserted: triple Post Procedure: sutured in place, good blood return, all ports aspirated, flushed, capped and sterile dressing applied Patient Tolerated Procedure: well Complications: none Intubation Intubation #1: Intubation Date: 10/08/24 Intubation Time: 20:34 sedative: Etomidate Mg Given: 30 paralytic: Succinylcholine Mg Given: 120 Laryngoscope: Zoraida Tube Size (cm): 7.5 Method of Intubation: orotracheal Number of Attempts: 1 Tube Secured Depth (cm): 27 Tube Secured Location: teeth Tube Placement Confirmation: visualized tube passing through cords, equal breath sounds bilaterally, no breath sounds over epigastrium and confirmation by capnometry Patient Tolerated Procedure: well Intubation Complications: none MDM - Altered Mental Status Lab Data 10/08/24 17:13 10/08/24 17:13 Labs: Lab Results 10/08/24 Range/Units 17:13 WBC 7.9 (4.5-10.0) K/mm3 RBC 4.24 L (4.6-6.20) M/mm3 Hgb 13.3 L (14.0-18.0) g/dL Hct 41.6 L (42.0-52.0) % MCV 98.1 (80-100) fl MCH 31.4 (26-34) pg MCHC 32.0 (32-36) g/dl RDW 16.1 H (11.5-14.5) % Plt Count 54 L (150-375) k/mm3 MPV 12.3 H (7.4-10.4) fl Immature Gran % (Auto) Not Reportable Neut % (Auto) Not Reportable Lymph % (Auto) Not Reportable [place] % (Auto) Not Reportable Eos % (Auto) Not Reportable Baso % (Auto) Not Reportable Lymph # (Auto) Not Reportable [place] # (Auto) Not Reportable Eos # (Auto) Not Reportable Baso # (Auto) Not Reportable Abs Immat Gran (auto) Not Reportable Absolute Neuts (auto) Not Reportable Absolute Nucleated RBC Not Reportable Total Counted 100 Neutrophils % (Manual) 84 H (46-73) % Band Neutrophils % 10 H (0-6) % Lymphocytes % (Manual) 4.0 L (18-44) % Monocytes % (Manual) 2 L (3-9) % Nucleated RBC % Not Reportable Abs Neuts (Manual) 7.42 H (1.3-6.7) K/mm3 Abs Lymphs (Manual) 0.31 L (1.1-4.5) K/mm3 Abs Monocytes (Manual) 0.15 (0.1-0.90) K/mm3 Platelet Estimate Decreased (Adequate) % Immature Plt Fraction 9.4 (0.9-11.2) % Hypochromasia 1+ Anisocytosis 2+ Schistocytes None seen PT 22.6 H (11.1-14.7) Seconds INR 2.0 APTT 31.6 (22.3-36.8) Seconds Sodium 136 L (137-145) mmol/L Potassium 4.2 (3.4-5.0) mmol/L Chloride 92 L (98-107) mmol/L Carbon Dioxide 34 H (22-30) mmol/L Anion Gap 10 (4-12) mmol/L BUN 26 H (9-20) mg/dL Creatinine 3.68 H (0.7-1.3) mg/dL Estim Creat Clear Calc 16 ml/min Estimated GFR 16 L (59 - ) Glucose 132 H (65-110) mg/dL Lactic Acid 2.9 H (0.7-2.0) mmol/L Calcium 7.4 L (8.4-10.2) mg/dL Total Bilirubin 2.1 H (0.2-1.3) mg/dL AST 28 (17-59) U/L ALT 15 (6-50) U/L Alkaline Phosphatase 139 H (38-126) U/L Total Protein 8.0 (6.3-8.2) g/dL Albumin 3.5 (3.5-5.1) g/dL Influenza A (RT-PCR) Positive A (Negative) Influenza B (RT-PCR) Negative (Negative) RSV (RT-PCR) Negative (Negative) SARS-CoV-2 RNA (RT-PCR) Negative (Negative) Critical Care Time Critical Care Time Critical Care Time: Yes Total Critical Care Time: 65 Discharge Plan Discharge Clinical Impression: Sepsis, Altered mental status, Influenza, Pneumonia Patient Disposition: Still a Patient Condition: Stable Patient Language: [place] Prescriptions: No Action albuterol sulfate 90 mcg/actuation HFA aerosol inhaler 2 puff inhalation Q6H PRN (Reason: sob/wheezing) acetaminophen 325 mg Tablet 650 mg PO Q6H PRN (Reason: Mild Pain (1-3) Or Fever) Qty: 30 0RF fluticasone propion-salmeterol [Advair Diskus] 250-50 mcg/dose blister with device 1 inh inhalation Q12H sevelamer carbonate [Renvela] 800 mg tablet 1,600 mg PO TIDWM Rx Instructions: must administer with a meal/food cephalexin 500 mg Capsule 500 mg PO Q12HR Qty: 5 0RF atorvastatin 10 mg tablet 10 mg PO DAILY Qty: 90 2RF Eliquis 2.5 mg tablet 2.5 mg PO Q12HR Qty: 180 1RF allopurinol 100 mg tablet 100 mg PO DAILY Qty: 90 3RF bumetanide 1 mg tablet 1 mg PO BID Qty: 60 5RF tramadol 50 mg tablet 50 mg PO Q8H PRN (Reason: pain) Qty: 90 0RF midodrine 10 mg tablet 10 mg PO WITH DIALYSIS PRN (Reason: hypotension with dialysis) Qty: 12 12RF benzonatate 100 mg capsule See Rx Instructions .ROUTE .COMPLEX Qty: 60 0RF Dose Instruction: TAKE 1 TO 2 CAPSULES BY MOUTH THREE TIMES DAILY NEEDED FOR COUGH . DO NOT EXCEED 6 PER 24 HOURS Rx Instructions: TAKE 1 TO 2 CAPSULES BY MOUTH THREE TIMES DAILY NEEDED FOR COUGH . DO NOT EXCEED 6 PER 24 HOURS Follow-up/Referrals: Ramez Ching MD [Primary Care Provider] -
[2024-10-08] MEDS: SODIUM CHLORIDE 0.9% IV 1,000 ML 999 ML IV CONT (17:28)
[2024-10-08 17:32] LABS: Lactic Acid Reflex 2.9 mmol/L (0.7-2.0)
[2024-10-08 17:33] LABS: Alanine Aminotransferase 15 U/L (6-50); Albumin Level 3.5 g/dL (3.5-5.1); Alkaline Phosphatase 139 U/L (38-126); Anion Gap 10 mmol/L (4-12); Aspartate Amino Transferase 28 U/L (17-59); Bilirubin,Total 2.1 mg/dL (0.2-1.3); Blood Urea Nitrogen 26 mg/dL (9-20); Calcium 7.4 mg/dL (8.4-10.2); Carbon Dioxide 34 mmol/L (22-30); Chloride 92 mmol/L (98-107); Estimated CRCL calculation 16 ml/min; Estimated Glomerular Filt Rate 16; Glucose 132 mg/dL (65-110); Potassium 4.2 mmol/L (3.4-5.0); Sodium 136 mmol/L (137-145)
[2024-10-08 17:35] LABS: Prothrombin Time 22.6 Seconds (11.1-14.7)
[2024-10-08 17:36] LABS: Partial Thromboplastin Time 31.6 Seconds (22.3-36.8)
[2024-10-08 17:48] LABS: Band Neutrophils Percent 10 % (0-6); Lymphocytes Absolute Manual 0.31 K/mm3 (1.1-4.5); Monocytes Absolute Manual 0.15 K/mm3 (0.1-0.90); Monocytes Percent Manual 2 % (3-9); Neutrophils Absolute Manual 7.42 K/mm3 (1.3-6.7); Neutrophils Percent Manual 84 % (46-73); Total Cells Counted 100
[2024-10-08 17:49] LABS: Hypochromasia 1+; Platelet Estimate Decreased (Adequate); Schistocytes None Seen
[2024-10-08 17:50] LABS: Anisocytosis 2+
[2024-10-08 17:58] LABS: Influenza A QL RT-PCR Positive (Negative); Influenza B QL RT-PCR Negative (Negative); RSV RNA, RT-PCR Negative (Negative); SARS-CoV-2 RNA PCR Negative (Negative)
[2024-10-08] MEDS: AZITHROMYCIN 500 MG/NS 250 ML 500 MG/250 ML BAG 250 MG IVPB (18:09)
[2024-10-08] MEDS: CALCIUM CARBONATE (TUMS) 500 MG (200 MG ELEMENTAL) PO (18:11)
[2024-10-08] MEDS: SODIUM CHLORIDE 0.9% IV 500 ML 999 ML IV CONT (19:27)
[2024-10-08] MEDS: LORazepam INJ (*CRX) 2 MG/ML VIAL 0.5 MG IV PUSH ×2 (19:28→20:02)
--- NOTE | 2024-10-08 20:05 | PM.IMHP ---
H&P: HPI History of Present Illness Date/Time: 10/08/24 21:15 Chief Complaint: Altered mental status. Narrative: This is an 84-year-old male with end-stage renal disease on hemodialysis, congestive heart failure, pulmonary hypertension, type 2 diabetes mellitus, atrial fibrillation on anticoagulation, hypertension, chronic anemia, and other comorbidities who presented to the emergency department via EMS for evaluation of altered mental status after dialysis. He was intubated in the emergency department and the following history is obtained from the patient's as well as review of his electronic medical records. He went to dialysis at 05:00 and completed a session. His that time he has reportedly been increasingly confused, mumbling to himself and not making any sense. In the ED his only complaint was that of not feeling well but he did not elaborate. reports that he had a bit of a cough yesterday which she believes was nonproductive. There were no reports of fever, cold and flu symptoms, vomiting, or diarrhea. In the ED: Vital signs on arrival include a temperature of 99.8?, blood pressure 72/37, pulse 87, respiratory 22, SpO2 95%. Labs were significant for WBC count of 7.9 with 10 bands noted on manual differential, sodium 136, chloride 92, carbon dioxide 34, BUN 26, creatinine 3.68, lactic acid 2.9, calcium 7.9, total bilirubin 2.1. He tested positive for influenza A. Chest x-ray showed bilateral social pneumonitis versus pulmonary edema. Blood pressure continue to drift down words and he was given a 1500 mL bolus of normal saline without much improvement. The decision was made to put in the central line and start the patient on vasopressors however the patient had difficulties lying still for central line placement and he was sedated and eventually intubated and he is being admitted to the ICU in this setting with hypotension, influenza, pneumonia, and altered mental status. Review of Systems Review of Systems: Unable to be obtained given current clinical condition. [facility] Past Medical History Medical History Shingles Benign prostatic hyperplasia Vitamin D deficiency Secondary renal hyperparathyroidism Chronic anticoagulation Atrial fibrillation with slow ventricular response Pulmonary hypertension Congestive heart failure 07/2024: Hyperdynamic systolic function, estimated EF 70%, severely dilated right ventricle. Gout Sleep apnea intolerant of CPAP End-stage renal disease on hemodialysis Anemia of chronic disease Umbilical hernia Iron deficiency anemia B12 deficiency anemia Essential (primary) hypertension Mixed hyperlipidemia Type 2 diabetes mellitus with diabetic neuropathy Surgical History Surgical History Status post insertion of spinal cord stimulator History of cataract extraction with lens replacement History of bilateral knee arthroplasty Normal colonoscopy (~2007) Family History Family History Father Cerebrovascular accident Mother Hypertension Sibling Hypertension Other Kidney disease, chronic, end stage on dialysis Social History Social History Social History: Surrogate medical decision maker: Kathy Yanez, spouse. Code status: Full code. Smoking packs per day: 0.5 Smoking cigarettes per day: 10.0 Years smoked: 5 Smoking pack-years: 2.50 Smoking status: Former smoker Second hand tobacco smoke exposure: Yes Alcohol intake: never Substance use: never Substance use type: does not use Do You Feel Safe in your Home?: Yes Lack of Transportation: No Lack of Food: Never True Current Housing: I Have Housing Concerned About Future Housing: No Difficulty Paying Gas/Electric Bills: No Difficulty Paying for Meds: No Currently Unemployed: No Education: Bachelor's Degree Difficulty w/ Childcare or Family Care: No Living arrangements: with family Additional living arrangements comments: Lives with spouse of nearly 60 years. They have a son and daughter. 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 care concerns: No Meds Home Medications and Allergies Home Medications ?Medication ?Instructions ?Recorded ?Confirmed ?Type atorvastatin 10 mg tablet 10 mg PO DAILY #90 tabs 02/23/24 10/09/24 Rx apixaban 2.5 mg tablet (Eliquis) 2.5 mg PO Q12HR #180 tabs 03/12/24 10/09/24 Rx allopurinol 100 mg tablet 100 mg PO DAILY #90 tabs 03/31/24 10/09/24 Rx bumetanide 1 mg tablet 1 mg PO BID #60 tabs 06/16/24 10/09/24 Rx albuterol sulfate 90 mcg/actuation 2 puff inhalation Q6H PRN 07/12/24 10/09/24 History aerosol inhaler sob/wheezing acetaminophen 325 mg tablet 650 mg (2 x 325 mg) PO Q6H PRN 07/17/24 10/09/24 Rx Mild Pain (1-3) Or Fever #30 tabs fluticasone 250 mcg-salmeterol 50 1 inh inhalation Q12H 07/21/24 10/09/24 History mcg/dose blistr powdr for inhalation (Advair Diskus) tramadol 50 mg tablet 50 mg PO Q8H PRN pain #90 tabs 08/23/24 10/09/24 Rx midodrine 10 mg tablet 10 mg PO WITH DIALYSIS PRN 09/24/24 10/09/24 Rx hypotension with dialysis #12 tabs sevelamer carbonate 800 mg tablet 1,600 mg PO TIDWM 09/24/24 10/09/24 History (Renvela) benzonatate 100 mg capsule See Rx Instructions .Route 10/03/24 10/09/24 Rx .COMPLEX #60 caps Allergies Allergy/AdvReac Type Severity Reaction Status Date / Time No Known Allergies Allergy Verified 10/08/24 17:11 Vital Signs Vital Signs - 24 hr 10/08/24 16:30 10/08/24 17:33 10/08/24 18:31 Temperature 99.8 F H Pulse Rate 87 86 82 Respiratory Rate 22 H 20 23 H Blood Pressure 72/37 L 92/46 L 76/54 L Pulse Oximetry 95 92 93 Oxygen Delivery Nasal Cannula Oxygen Flow Rate 2 10/08/24 18:53 10/08/24 18:56 Temperature Pulse Rate Respiratory Rate Blood Pressure Pulse Oximetry 93 93 Oxygen Delivery Nasal Cannula High Flow Therapy with Na Oxygen Flow Rate 2 2 Exam Narrative: General: Ill-appearing male in the semi-Lawton position in bed, sedated on mechanical ventilation. Weight: 98.8 kg. BMI: 35.2. HEENT: Pupils are 2 to 3 mm and are sluggishly reactive. Conjunctiva mildly injected. Sclerae anicteric. ET and OG tubes in place. Neck: Supple. Limited due to neck circumference and position. No obvious JVD. Respiratory: Intubated on mechanical ventilation. Equally transmitted lung sounds bilaterally, a bit coarse. Cardiovascular: Bradycardic. Telemetry shows slow atrial fibrillation. Gastrointestinal: Abdomen is obese, nontender, nondistended with positive bowel sounds. Skin: Warm and dry. Chronic skin changes of the lower legs. Extremities: No cyanosis or clubbing. Bilateral lower extremity pitting edema. Neurological: Sedated with fentanyl and midazolam. Does not follow commands or withdrawal to pain. Psychiatric: Unable to assess. H&P: Results Labs Labs: Short CBC 10/08/24 Range/Units 17:13 WBC 7.9 (4.5-10.0) K/mm3 Hgb 13.3 L (14.0-18.0) g/dL Hct 41.6 L (42.0-52.0) % Plt Count 54 L (150-375) k/mm3 BMP 10/08/24 17:13 Sodium 136 L Potassium 4.2 Chloride 92 L Carbon Dioxide 34 H BUN 26 H Creatinine 3.68 H Glucose 132 H Calcium 7.4 L Liver Function 10/08/24 Range/Units 17:13 Total Bilirubin 2.1 H (0.2-1.3) mg/dL AST 28 (17-59) U/L ALT 15 (6-50) U/L Alkaline Phosphatase 139 H (38-126) U/L Albumin 3.5 (3.5-5.1) g/dL Imaging Chest X-Ray 10/08/24 18:43 IMPRESSION: 1. Cardiomegaly. 2. Bilateral interstitial pneumonitis versus pulmonary edema. Chest X-Ray 10/08/24 20:43 IMPRESSION: 1. Cardiomegaly with prominent brandy. 2. Bilateral interstitial changes. Pneumonitis cannot be excluded. Assessment and Plan Assessment and plan (1) Sepsis: Code(s): A41.9 - Sepsis, unspecified organism Status: Acute (2) Influenza: Code(s): J11.1 - Influenza due to unidentified influenza virus with other respiratory manifestations Status: Acute (3) Pneumonia: Code(s): J18.9 - Pneumonia, unspecified organism Status: Acute (4) Altered mental status: Code(s): R41.82 - Altered mental status, unspecified Status: Acute (5) End-stage renal disease on hemodialysis: Code(s): N18.6 - End stage renal disease; Z99.2 - Dependence on renal dialysis Status: Acute (6) Type 2 diabetes mellitus with diabetic neuropathy: Qualifiers: Diabetes mellitus detention insulin use: without long filler cigar roller machine use Qualified Code(s): E11.40 - Type 2 diabetes mellitus with diabetic neuropathy, unspecified Code(s): E11.40 - Type 2 diabetes mellitus with diabetic neuropathy, unspecified Status: Chronic Plan The patient presented to the emergency department for evaluation of altered mental status following dialysis as detailed in HPI. Labs, imaging, EKG, and all reports were personally reviewed. He meets sepsis criteria with hypotension, low-grade fever, bandemia, lactic acidosis, and altered mental status in the setting of infection. He remained hypotensive following a 1.5 L normal saline bolus (more fluids were not given due to his end-stage renal disease) and he has been started on vasopressors with a target MAP of at least 65. He tested positive for influenza A and chest x-ray shows findings of possible pneumonia for which he has been started on oseltamivir and azithromycin, ceftriaxone, and vancomycin. MRSA nasal screen pending. Sputum culture ordered. There were no reports of obvious focal deficits on exam in the ED and his altered mental status may very well be related to sepsis, influenza, and hypotension. Brain CT was without acute findings. Initiate sliding scale insulin, Accu-Cheks, and hypoglycemic protocol. He will be due for dialysis on Friday. His medications will be reviewed and resumed as appropriate. Findings and treatment plan were discussed with the patient's . Questions were solicited and answered to satisfaction. The patient's medical management will be taken over by the hospitalist team in a.m. Quality VTE Prophylaxis VTE prophylaxis: pharmacologic ordered (on apixaban) Hospitalist [facility] Advance Care Plan I have confirmed that the patient's Advanced Care Plan is present, code status is documented, or surrogate decision maker is listed in patient medical record.: Yes Medication Reconciliation I have utilized all available resources to obtain, update and review the patients current medications (includes all prescriptions, OTC, herbals, cannabis, and nutritional supplements).: Yes Critical Care Time Critical Care Time: Yes Total Critical Care Time: 60 Attestation: Due to a high probability of clinically significant, life threatening deterioration, the patient required my highest level of preparedness to intervene emergently and I personally spent this critical care time directly and personally managing the patient. This critical care time included obtaining a history; examining the patient; pulse oximetry; ordering and review of studies; arranging urgent treatment with development of a management plan; evaluation of patient's response to treatment; frequent reassessment; and discussions with other providers. It was exclusive of separately billable procedures and treating other patients and teaching time. Please see Assessment and Plan section and the rest of the note for further information on patient assessment and treatment.
[2024-10-08] MEDS: fentaNYL CITRATE INJ (*CRX) 100 MCG/2 ML VIAL (20:07)
[2024-10-08 20:20] LABS: Reflex Lactic Acid Yes or No Add Lactic
[2024-10-08] MEDS: FENTANYL 2,500MCG/NS250ML(*CRX 2,500 MCG/250 ML BAG IV CONT (20:48)
[2024-10-08] MEDS: MIDAZOLAM 100MG/NS 100ML(*CRX) 100 MG/100 ML BAG IV CONT (20:51)
[2024-10-08] MEDS: NOREPINEPHRINE 8 MG/D5W 250 ML 8 MG/250 ML BAG 9.38 MG IV CONT (21:07)
[2024-10-08] MEDS: MIDAZOLAM HCL (*CRX) 2 MG/2 ML VIAL (21:12)
[2024-10-08 22:17] LABS: Alveolar/Arterial O2 Gradient 232.7 mmHg; Base Excess ABG 4.1 mEq/l (+/-2.0); Fractional Inspired Oxygen 50 %; HCO3 ABG 26.5 mEq/l (22.0-26.0); Oxygen Content ABG 18.4 %vol (16.0-22.0); Oxygen Saturation ABG 97.5 % (95.0-100.0); Oxyhemoglobin 95.7 % THb (90.0-100.0); PCO2 ABG 32.7 mmHg (35.0-45.0); PO2 FiO2 Ratio Arterial Blood 1.74 %; Total Hemoglobin 13.6 g/dL (12.0-18.0)
[2024-10-08 22:21] LABS: Arterial Blood Gas Ventilator rate 18 /MIN; Device VENTILATOR; Modified Allen's Test Pass; Site Drawn RIGHT RADIAL; pH ABG 7.526 (7.350-7.450)
[2024-10-08 22:22] LABS: Arterial Blood Gas PEEP 5 cmH2O; Arterial Blood Gas Tidal Volume 500 ml; Arterial Blood Gas Vent Mode CMV
--- NOTE | 2024-10-08 23:40 | PC.NURSE ---
Patient arrived to ICU with current drip rates. Versed 5mg/hr, Fentanyl 125mcg/hr. Levophed at 22mcg/min.
[2024-10-08] MEDS: VASOPRESSIN INJ 100 UNITS in DEXTROSE 5% 95 ML IV CONT (23:46)
[2024-10-08] MEDS: VANCOMYCIN 2,000 MG/NS 500 ML 2,000 MG/500 ML BAG 250 MG IVPB (23:50)
[2024-10-09] VITALS (51 sets, daily range): BP systolic 67–132; BP diastolic 47–73; PULSE 49–106; RESP 0–26; TEMP 36.3–37.3; O2SAT 94–100; BMI 35.2
[2024-10-09 00:25] LABS: Glucose Point of Care 140 mg/dl (65-105)
--- NOTE | 2024-10-09 00:36 | ADMGEN ---
This patient, Khalif Yanez, was admitted to Intensive Care Unit-3. Patient/family oriented to hospital policies and general routines including ID bracelet, bed and alarms, visiting hours, pain management, procedures, bathroom and other care routines, personal items, smoking policy, room service/diet, and visiting hours. Information on how to activate the Rapid Response Team has been discussed. Patient/Family are encouraged to report perceived risks to care and to ask questions if they do not understand what they are told or what they should do.
[2024-10-09] MEDS: NOREPINEPHRINE 8 MG/D5W 250 ML 8 MG/250 ML BAG 52.5 MG IV CONT (02:15)
[2024-10-09 05:22] LABS: Alveolar/Arterial O2 Gradient 89.2 mmHg; Base Excess ABG 1.3 mEq/l (+/-2.0); Carboxyhemoglobin 1.4 % THb (0-2.0); Fractional Inspired Oxygen 30 %; HCO3 ABG 25.2 mEq/l (22.0-26.0); Methemoglobin ABG 0.3 %THb (0-1.5); Oxygen Content ABG 20.2 %vol (16.0-22.0); Oxygen Saturation ABG 96.3 % (95.0-100.0); Oxyhemoglobin 94.6 % THb (90.0-100.0); PCO2 ABG 37.8 mmHg (35.0-45.0); PO2 ABG 80.3 mmHg (80.0-100.0); PO2 FiO2 Ratio Arterial Blood 2.68 %; Reduced Hemoglobin 3.7 %THb (0-5.0); Total Hemoglobin 15.2 g/dL (12.0-18.0); pH ABG 7.442 (7.350-7.450)
[2024-10-09 05:29] LABS: Arterial Blood Gas PEEP 5 cmH2O; Arterial Blood Gas Tidal Volume 500 ml; Arterial Blood Gas Vent Mode CMV; Arterial Blood Gas Ventilator rate 14 /MIN; Device VENTILATOR; Modified Allen's Test Pass; Site Drawn RIGHT RADIAL
[2024-10-09 05:30] LABS: Basophils Absolute Auto 0.1 K/mm3 (0.0-0.1); Basophils Percent Auto 0.3 % (0.2-1.2); Hematocrit 46.4 % (42.0-52.0); Hemoglobin 14.5 g/dL (14.0-18.0); Immature Granulocyte Absolute 0.25 K/mm3 (0.00-0.031); Immature Granulocyte Percent A 1.2 % (0-0.5); Immature Platelet Fraction Pct 10.5 % (0.9-11.2); Lymphocytes Percent Auto 8.6 % (18.3-44.2); Mean Corpuscular HGB Conc 31.3 g/dl (32-36); Mean Corpuscular Volume 99.1 fl (80-100); Mean Platelet Volume 12.1 fl (7.4-10.4); Monocytes Absolute Auto 1.9 K/mm3 (0.1-0.6); Monocytes Percent Auto 8.9 % (2.6-8.5); Nucleated Red Blood Cells Perc 0.1 % (0.0-0.2); Platelet Count Result 80 k/mm3 (150-375); Red Blood Count 4.68 M/mm3 (4.6-6.20); Red Cell Distribution Width 16.4 % (11.5-14.5); White Blood Count 20.9 K/mm3 (4.5-10.0)
[2024-10-09 05:40] LABS: Alanine Aminotransferase 16 U/L (6-50); Albumin Level 3.3 g/dL (3.5-5.1); Alkaline Phosphatase 122 U/L (38-126); Anion Gap 15 mmol/L (4-12); Aspartate Amino Transferase 40 U/L (17-59); Bilirubin,Total 2.6 mg/dL (0.2-1.3); Blood Urea Nitrogen 31 mg/dL (9-20); Calcium 6.9 mg/dL (8.4-10.2); Carbon Dioxide 28 mmol/L (22-30); Chloride 92 mmol/L (98-107); Estimated CRCL calculation 13 ml/min; Estimated Glomerular Filt Rate 13; Glucose 199 mg/dL (65-110); Lactic Acid Reflex 2.5 mmol/L (0.7-2.0); Phosphorus 3.2 mg/dL (2.5-4.5); Sodium 135 mmol/L (137-145)
[2024-10-09] MEDS: NOREPINEPHRINE 8 MG/D5W 250 ML 8 MG/250 ML BAG 56.25 MG IV CONT ×2 (05:50→16:22)
[2024-10-09 05:56] LABS: Anisocytosis 1+; Platelet Estimate Decreased (Adequate)
[2024-10-09 05:57] LABS: Crenated RBC 2+; Schistocytes None Seen
[2024-10-09 05:58] LABS: Band Neutrophils Percent 0 % (0-6)
[2024-10-09 08:11] LABS: MRSA (PCR) DETECTED (NOT DETECTE)
[2024-10-09 08:26] LABS: Reflex Lactic Acid Yes or No Add Lactic
[2024-10-09] MEDS: CALCIUM GLUC 1,000 MG/NS 50 ML 1,000 MG/50 ML BAG 100 MG IVPB (09:00)
[2024-10-09] MEDS: ALBUMIN HUMAN 25% 25 GM/100 ML 100 ML IVPB ×4 (09:00→23:12)
[2024-10-09] MEDS: allopurinoL 100 MG TABLET PO (09:26)
[2024-10-09] MEDS: ATORVASTATIN 10 MG TABLET PO (09:26)
[2024-10-09] MEDS: APIXABAN 2.5 MG TABLET PO ×2 (09:26→20:59)
[2024-10-09] MEDS: FAMOTIDINE 20 MG/2 ML VIAL IV PUSH (09:27)
[2024-10-09] MEDS: MUPIROCIN 2% OINT 22 GM TUBE 1 APPLIC EACH NARE ×2 (09:27→20:59)
[2024-10-09 09:54] LABS: Lactic Acid 2.5 mmol/L (0.7-2.0)
[2024-10-09] MEDS: NOREPINEPHRINE 8 MG/D5W 250 ML 8 MG/250 ML BAG 48.75 MG IV CONT (11:03)
[2024-10-09 11:27] LABS: Glucose Point of Care 220 mg/dl (65-105)
[2024-10-09] MEDS: INSULIN ASPART (*BKC) 100 UNITS/ML SUB-Q (11:35)
[2024-10-09] MEDS: AZITHROMYCIN 500 MG/NS 250 ML 500 MG/250 ML BAG 250 MG IVPB (11:35)
[2024-10-09] MEDS: CENTRAL LINE FLUSH 10 ML IV PUSH ×2 (13:10→21:00)
[2024-10-09] MEDS: IPRATROPIUM 0.5 MG/ALBUTEROL SULFATE 2.5 MG AMPUL.NEB 3 ML INHALATION ×2 (13:57→20:22)
--- NOTE | 2024-10-09 14:41 | P.PNIM_ITS ---
Progress Note: A&P Assessment and Plan (1) Sepsis: Code(s): A41.9 - Sepsis, unspecified organism Status: Acute (2) Influenza: Code(s): J11.1 - Influenza due to unidentified influenza virus with other respiratory manifestations Status: Acute (3) Pneumonia: Code(s): J18.9 - Pneumonia, unspecified organism Status: Acute (4) Altered mental status: Code(s): R41.82 - Altered mental status, unspecified Status: Acute (5) End-stage renal disease on hemodialysis: Code(s): N18.6 - End stage renal disease; Z99.2 - Dependence on renal dialysis Status: Acute (6) Type 2 diabetes mellitus with diabetic neuropathy: Qualifiers: Diabetes mellitus terminal operations supervisor insulin use: without terminal operations supervisor use Qualified Code(s): E11.40 - Type 2 diabetes mellitus with diabetic neuropathy, unspecified Code(s): E11.40 - Type 2 diabetes mellitus with diabetic neuropathy, unspecified Status: Chronic Plan The patient presented to the emergency department for evaluation of altered mental status following dialysis as detailed in HPI. Labs, imaging, EKG, and all reports were personally reviewed. He meets sepsis criteria with hypotension, low-grade fever, bandemia, lactic acidosis, and altered mental status in the setting of infection. He remained hypotensive following a 1.5 L normal saline bolus (more fluids were not given due to his end-stage renal disease) and he has been started on vasopressors with a target MAP of at least 65. He tested positive for influenza A and chest x-ray shows findings of possible pneumonia for which he has been started on oseltamivir and azithromycin, ceftriaxone, and vancomycin. MRSA nasal screen pending. Sputum culture ordered. There were no reports of obvious focal deficits on exam in the ED and his altered mental status may very well be related to sepsis, influenza, and hypotension. Brain CT was without acute findings. Initiate sliding scale insulin, Accu-Cheks, and hypoglycemic protocol. He will be due for dialysis on Friday. His medications will be reviewed and resumed as appropriate. Findings and treatment plan were discussed with the patient's . Questions were solicited and answered to satisfaction. The patient's medical management will be taken over by the hospitalist team in a.m. patient presented with hypotension and confusion, patient was intubated and on ventilator, patient is receiving IVF and on pressor, patient is found to have Influenza A. patient is present in the room, patient is seen by principal data architect and further recommendation to follow. Subjective Date/time seen: 10/09/24 14:41 Interval history: Altered mental status. H&P-Narrative: This is an 84-year-old male with end-stage renal disease on hemodialysis, congestive heart failure, pulmonary hypertension, type 2 diabetes mellitus, atrial fibrillation on anticoagulation, hypertension, chronic anemia, and other comorbidities who presented to the emergency department via EMS for evaluation of altered mental status after dialysis. He was intubated in the emergency department and the following history is obtained from the patient's as well as review of his electronic medical records. He went to dialysis at 05:00 and completed a session. His that time he has reportedly been increasingly confused, mumbling to himself and not making any sense. In the ED his only complaint was that of not feeling well but he did not elaborate. reports that he had a bit of a cough yesterday which she believes was nonproductive. There were no reports of fever, cold and flu symptoms, vomiting, or diarrhea. In the ED: Vital signs on arrival include a temperature of 99.8?, blood pressure 72/37, pulse 87, respiratory 22, SpO2 95%. Labs were significant for WBC count of 7.9 with 10 bands noted on manual differential, sodium 136, chloride 92, carbon dioxide 34, BUN 26, creatinine 3.68, lactic acid 2.9, calcium 7.9, total bilirubin 2.1. He tested positive for influenza A. Chest x-ray showed bilateral social pneumonitis versus pulmonary edema. Blood pressure continue to drift down words and he was given a 1500 mL bolus of normal saline without much improvement. The decision was made to put in the central line and start the pa tient on vasopressors however the patient had difficulties lying still for central line placement and he was sedated and eventually intubated and he is being admitted to the ICU in this setting with hypotension, influenza, pneumonia, and altered mental status. patient presented with hypotension and confusion, patient was intubated and on ventilator, patient is receiving IVF and on pressor, patient is found to have Influenza A. patient is present in the room, patient is seen by principal data architect and further recommendation to follow. Review of Systems Review of Systems: Unable to be obtained given current clinical condition. Exam Narrative: Patient is comfortable, NAD HEENT: ET tube in place LUNGS:CTA HEART: RR S1S2 ABD: BS+, Soft and nontender Lower extremities: no edema SKIN: nonjaundiced Neuro: On vent and sedated Objective Data Vital Signs Vital Signs: Vital Signs - 24 hr 10/08/24 16:30 10/08/24 17:33 10/08/24 18:31 Temperature 37.7 C H Pulse Rate 87 86 82 Respiratory Rate 22 H 20 23 H Blood Pressure 72/37 L 92/46 L 76/54 L Pulse Oximetry 95 92 93 Oxygen Delivery Nasal Cannula Oxygen Flow Rate 2 Fraction of Inspired Oxygen 10/08/24 18:53 10/08/24 18:56 10/08/24 19:00 Temperature Pulse Rate 85 Respiratory Rate 23 H Blood Pressure Pulse Oximetry 93 93 Oxygen Delivery Nasal Cannula High Flow Therapy with Na Oxygen Flow Rate 2 2 Fraction of Inspired Oxygen 10/08/24 19:01 10/08/24 19:19 10/08/24 19:20 Temperature Pulse Rate 89 79 83 Respiratory Rate 26 H 32 H 24 H Blood Pressure 130/115 H 72/49 L 65/51 L Pulse Oximetry 93 Oxygen Delivery Oxygen Flow Rate Fraction of Inspired Oxygen 10/08/24 19:21 10/08/24 19:25 10/08/24 19:30 Temperature Pulse Rate 77 81 77 Respiratory Rate 26 H 33 H 35 H Blood Pressure 71/55 L Pulse Oximetry 94 89 L Oxygen Delivery Oxygen Flow Rate Fraction of Inspired Oxygen 10/08/24 19:45 10/08/24 20:00 10/08/24 20:00 Temperature Pulse Rate 78 71 Respiratory Rate 18 23 H Blood Pressure Pulse Oximetry 90 Oxygen Delivery Mechanical Ventilation Oxygen Flow Rate Fraction of Inspired Oxygen 50 10/08/24 20:16 10/08/24 20:17 10/08/24 20:21 Temperature Pulse Rate 79 78 85 Respiratory Rate 14 19 20 Blood Pressure 68/22 L 84/68 L Pulse Oximetry 88 L 90 90 Oxygen Delivery Oxygen Flow Rate Fraction of Inspired Oxygen 10/08/24 20:37 10/08/24 20:41 10/08/24 20:45 Temperature Pulse Rate 82 78 68 Respiratory Rate 19 18 18 Blood Pressure 62/43 L Pulse Oximetry 100 99 97 Oxygen Delivery Oxygen Flow Rate Fraction of Inspired Oxygen 10/08/24 20:48 10/08/24 20:51 10/08/24 20:51 Temperature Pulse Rate 76 74 82 Respiratory Rate 18 18 21 H Blood Pressure 77/47 L Pulse Oximetry 97 Oxygen Delivery Oxygen Flow Rate Fraction of Inspired Oxygen 10/08/24 21:00 10/08/24 21:01 10/08/24 21:04 Temperature Pulse Rate 70 70 72 Respiratory Rate 16 19 18 Blood Pressure 62/45 L Pulse Oximetry 99 99 Oxygen Delivery Oxygen Flow Rate Fraction of Inspired Oxygen 10/08/24 21:07 10/08/24 21:11 10/08/24 21:14 Temperature Pulse Rate 78 69 72 Respiratory Rate 18 18 Blood Pressure 62/46 L 63/45 L Pulse Oximetry Oxygen Delivery Oxygen Flow Rate Fraction of Inspired Oxygen 10/08/24 21:15 10/08/24 21:20 10/08/24 21:21 Temperature Pulse Rate 78 66 72 Respiratory Rate 18 18 18 Blood Pressure 67/43 L Pulse Oximetry Oxygen Delivery Oxygen Flow Rate Fraction of Inspired Oxygen 10/08/24 21:30 10/08/24 21:31 10/08/24 21:35 Temperature Pulse Rate 69 72 71 Respiratory Rate 17 13 Blood Pressure 64/45 L 68/45 L Pulse Oximetry 99 81 L Oxygen Delivery Oxygen Flow Rate Fraction of Inspired Oxygen 10/08/24 21:35 10/08/24 21:36 10/08/24 21:41 Temperature Pulse Rate 71 65 67 Respiratory Rate 18 18 Blood Pressure 68/45 L 69/50 L Pulse Oximetry 97 Oxygen Delivery Oxygen Flow Rate Fraction of Inspired Oxygen 10/08/24 21:41 10/08/24 21:45 10/08/24 21:46 Temperature Pulse Rate 72 68 72 Respiratory Rate 18 18 17 Blood Pressure 69/50 L 80/65 L Pulse Oximetry 97 95 97 Oxygen Delivery Oxygen Flow Rate Fraction of Inspired Oxygen 10/08/24 21:49 10/08/24 21:51 10/08/24 21:52 Temperature Pulse Rate 71 71 70 Respiratory Rate 18 18 18 Blood Pressure 71/50 L Pulse Oximetry 98 Oxygen Delivery Oxygen Flow Rate Fraction of Inspired Oxygen 10/08/24 21:56 10/08/24 21:56 10/08/24 22:00 Temperature Pulse Rate 72 69 77 Respiratory Rate 18 18 Blood Pressure 76/44 L 76/44 L Pulse Oximetry 99 97 Oxygen Delivery Oxygen Flow Rate Fraction of Inspired Oxygen 10/08/24 22:01 10/08/24 22:02 10/08/24 22:05 Temperature Pulse Rate 68 64 78 Respiratory Rate 16 18 Blood Pressure 76/53 L Pulse Oximetry 97 100 Oxygen Delivery Oxygen Flow Rate Fraction of Inspired Oxygen 10/08/24 22:06 10/08/24 22:11 10/08/24 22:12 Temperature Pulse Rate 72 73 70 Respiratory Rate 16 16 Blood Pressure 70/52 L 83/51 L 83/51 L Pulse Oximetry 100 100 Oxygen Delivery Oxygen Flow Rate Fraction of Inspired Oxygen 10/08/24 22:15 10/08/24 22:16 10/08/24 22:25 Temperature Pulse Rate 66 65 69 Respiratory Rate 18 Blood Pressure 80/50 L 76/52 L Pulse Oximetry Oxygen Delivery Oxygen Flow Rate Fraction of Inspired Oxygen 10/08/24 22:32 10/08/24 22:42 10/08/24 22:51 Temperature Pulse Rate 68 75 72 Respiratory Rate 14 Blood Pressure 79/52 L 74/51 L 89/56 L Pulse Oximetry 97 Oxygen Delivery Oxygen Flow Rate Fraction of Inspired Oxygen 10/08/24 23:00 10/08/24 23:28 10/08/24 23:45 Temperature Pulse Rate 68 77 Respiratory Rate 14 Blood Pressure 89/56 L 77/59 L Pulse Oximetry 97 Oxygen Delivery Mechanical Ventilation Oxygen Flow Rate Fraction of Inspired Oxygen 50 10/08/24 23:46 10/09/24 00:01 10/09/24 00:01 Temperature Pulse Rate 67 67 65 Respiratory Rate 15 Blood Pressure 77/59 L 84/59 L Pulse Oximetry Oxygen Delivery Oxygen Flow Rate Fraction of Inspired Oxygen 10/09/24 00:01 10/09/24 00:01 10/09/24 00:01 Temperature 37.3 C Pulse Rate 77 64 67 Respiratory Rate 14 14 Blood Pressure 84/59 L 84/59 L Pulse Oximetry 98 Oxygen Delivery Oxygen Flow Rate Fraction of Inspired Oxygen 10/09/24 00:30 10/09/24 01:00 10/09/24 01:00 Temperature Pulse Rate 61 64 64 Respiratory Rate 14 14 Blood Pressure 97/61 L Pulse Oximetry Oxygen Delivery Oxygen Flow Rate Fraction of Inspired Oxygen 10/09/24 01:00 10/09/24 01:02 10/09/24 02:00 Temperature Pulse Rate 64 64 64 Respiratory Rate 14 Blood Pressure 92/64 L Pulse Oximetry 98 97 Oxygen Delivery Mechanical Ventilation Oxygen Flow Rate Fraction of Inspired Oxygen 50 10/09/24 02:00 10/09/24 02:00 10/09/24 02:00 Temperature 37.1 C Pulse Rate 64 60 66 Respiratory Rate 15 14 Blood Pressure 88/62 L 88/62 L Pulse Oximetry 97 Oxygen Delivery Oxygen Flow Rate Fraction of Inspired Oxygen 10/09/24 02:00 10/09/24 02:00 10/09/24 02:00 Temperature Pulse Rate 64 66 65 Respiratory Rate 14 26 H Blood Pressure 88/62 L 88/62 L Pulse Oximetry 96 Oxygen Delivery Oxygen Flow Rate Fraction of Inspired Oxygen 10/09/24 02:00 10/09/24 02:15 10/09/24 02:28 Temperature Pulse Rate 63 63 63 Respiratory Rate Blood Pressure 88/61 L 93/60 L Pulse Oximetry 98 Oxygen Delivery Mechanical Ventilation Oxygen Flow Rate Fraction of Inspired Oxygen 40 10/09/24 02:45 10/09/24 03:14 10/09/24 03:14 Temperature Pulse Rate 60 60 Respiratory Rate 14 14 Blood Pressure 92/60 L Pulse Oximetry 98 96 Oxygen Delivery Mechanical Ventilation Oxygen Flow Rate Fraction of Inspired Oxygen 30 30 10/09/24 03:45 10/09/24 04:00 10/09/24 04:00 Temperature 36.9 C Pulse Rate 61 60 60 Respiratory Rate 14 14 Blood Pressure 89/55 L 92/63 L Pulse Oximetry 98 Oxygen Delivery Oxygen Flow Rate Fraction of Inspired Oxygen 10/09/24 04:00 10/09/24 04:00 10/09/24 04:00 Temperature Pulse Rate 60 60 60 Respiratory Rate 14 Blood Pressure 92/63 L 92/63 L Pulse Oximetry Oxygen Delivery Oxygen Flow Rate Fraction of Inspired Oxygen 10/09/24 04:00 10/09/24 05:00 10/09/24 05:50 Temperature Pulse Rate 59 L 58 L 57 L Respiratory Rate Blood Pressure 94/68 L Pulse Oximetry 99 Oxygen Delivery Mechanical Ventilation Oxygen Flow Rate Fraction of Inspired Oxygen 30 10/09/24 05:50 10/09/24 06:00 10/09/24 06:00 Temperature Pulse Rate 57 L 106 H 58 L Respiratory Rate 14 Blood Pressure 94/68 L 105/72 Pulse Oximetry 99 Oxygen Delivery Oxygen Flow Rate Fraction of Inspired Oxygen 10/09/24 06:00 10/09/24 06:00 10/09/24 06:00 Temperature Pulse Rate 60 58 L 58 L Respiratory Rate 14 Blood Pressure 105/72 105/72 Pulse Oximetry Oxygen Delivery Oxygen Flow Rate Fraction of Inspired Oxygen 10/09/24 06:00 10/09/24 07:49 10/09/24 08:00 Temperature 36.4 C Pulse Rate 58 L 55 L 53 L Respiratory Rate 14 11 L Blood Pressure 105/66 Pulse Oximetry 99 99 Oxygen Delivery Mechanical Ventilation Oxygen Flow Rate Fraction of Inspired Oxygen 30 10/09/24 08:00 10/09/24 08:00 10/09/24 08:00 Temperature Pulse Rate 53 L 53 L 53 L Respiratory Rate 14 Blood Pressure 105/66 105/66 Pulse Oximetry Oxygen Delivery Oxygen Flow Rate Fraction of Inspired Oxygen 10/09/24 08:00 10/09/24 08:00 10/09/24 08:00 Temperature Pulse Rate 53 L Respiratory Rate 14 14 Blood Pressure Pulse Oximetry 99 Oxygen Delivery Mechanical Ventilation Oxygen Flow Rate Fraction of Inspired Oxygen 30 30 10/09/24 08:00 10/09/24 09:00 10/09/24 09:46 Temperature Pulse Rate 52 L 53 L Respiratory Rate Blood Pressure 96/68 L Pulse Oximetry Oxygen Delivery Oxygen Flow Rate Fraction of Inspired Oxygen 21 10/09/24 10:00 10/09/24 10:00 10/09/24 10:00 Temperature 36.3 C L Pulse Rate 54 L 54 L 60 Respiratory Rate 14 14 Blood Pressure 98/67 L 98/67 L Pulse Oximetry 96 Oxygen Delivery Oxygen Flow Rate Fraction of Inspired Oxygen 10/09/24 10:00 10/09/24 10:00 10/09/24 10:00 Temperature Pulse Rate 60 55 L 55 L Respiratory Rate 14 Blood Pressure 98/67 L Pulse Oximetry Oxygen Delivery Oxygen Flow Rate Fraction of Inspired Oxygen 10/09/24 10:49 10/09/24 11:03 10/09/24 11:03 Temperature Pulse Rate 57 L 60 60 Respiratory Rate Blood Pressure 95/64 L 95/64 L Pulse Oximetry 95 Oxygen Delivery Mechanical Ventilation Oxygen Flow Rate Fraction of Inspired Oxygen 21 10/09/24 11:44 10/09/24 12:00 10/09/24 12:00 Temperature Pulse Rate 56 L 61 57 L Respiratory Rate 14 Blood Pressure 93/61 L 87/56 L Pulse Oximetry Oxygen Delivery Oxygen Flow Rate Fraction of Inspired Oxygen 10/09/24 12:00 10/09/24 12:00 10/09/24 12:00 Temperature Pulse Rate 58 L Respiratory Rate 14 14 Blood Pressure Pulse Oximetry 95 Oxygen Delivery Mechanical Ventilation Oxygen Flow Rate Fraction of Inspired Oxygen 21 21 10/09/24 12:00 10/09/24 12:00 10/09/24 12:00 Temperature 36.4 C L 36.3 C L Pulse Rate 60 55 L 58 L Respiratory Rate 14 13 Blood Pressure 87/56 L 87/56 L Pulse Oximetry 95 95 Oxygen Delivery Oxygen Flow Rate Fraction of Inspired Oxygen 10/09/24 12:36 10/09/24 12:38 10/09/24 13:09 Temperature Pulse Rate 56 L 50 L 59 L Respiratory Rate 14 Blood Pressure 76/53 L 72/58 L Pulse Oximetry Oxygen Delivery Oxygen Flow Rate Fraction of Inspired Oxygen 10/09/24 13:57 10/09/24 13:57 10/09/24 14:00 Temperature Pulse Rate 60 60 56 L Respiratory Rate 14 14 Blood Pressure Pulse Oximetry 94 Oxygen Delivery Mechanical Ventilation Oxygen Flow Rate Fraction of Inspired Oxygen 21 10/09/24 14:00 10/09/24 14:00 10/09/24 14:00 Temperature Pulse Rate 57 L 57 L 57 L Respiratory Rate 14 14 Blood Pressure 87/60 L 87/60 L Pulse Oximetry 94 Oxygen Delivery Oxygen Flow Rate Fraction of Inspired Oxygen 10/09/24 14:00 10/09/24 14:10 10/09/24 14:34 Temperature Pulse Rate 57 L 60 Respiratory Rate 14 Blood Pressure Pulse Oximetry Oxygen Delivery Oxygen Flow Rate Fraction of Inspired Oxygen 30 Intake/Output Intake/Output: Intake & Output 10/06/24 10/07/24 10/08/24 10/09/24 23:59 23:59 23:59 23:59 Intake Total 1379.6 1623.9 Output Total 0 Balance 1379.6 1623.9 Meds/Results Medications: Active Medications Generic Name Dose Route Start Last Admin Trade Name Freq PRN Reason Stop Dose Admin Acetaminophen 650 mg 10/08/24 20:49 Acetaminophen 650 Mg Suppository RECTAL Q6H PRN Mild Pain (1-3) or Fever Albuterol/Ipratropium 3 ml 10/09/24 14:00 10/09/24 13:57 Ipratropium 0.5 Mg/Albuterol Sulfate 2.5 Mg Ampul.Neb 3 Ml INHALATION 3 ml Q6HRT CESAR Administration Allopurinol 100 mg 10/09/24 08:00 10/09/24 09:26 Allopurinol 100 Mg Tablet PO 100 mg DAILY@0800 CESAR Administration Apixaban 2.5 mg 10/09/24 09:00 10/09/24 09:26 Apixaban 2.5 Mg Tablet PO 2.5 mg Q12HR CESAR Administration Atorvastatin Calcium 10 mg 10/09/24 09:00 10/09/24 09:26 Atorvastatin 10 Mg Tablet PO 10 mg DAILY CESAR Administration Budesonide 0.5 mg 10/09/24 20:00 Budesonide Respule Neb 0.5 Mg/2 Ml Amp INHALATION Q12HRT [facility] Dextrose 12.5 gm 10/08/24 22:06 Dextrose 50% 25 Gm/50 Ml Syringe IV PUSH PRN PRN Hypoglycemia Protocol Glucagon 1 mg 10/08/24 22:06 Glucagon For Inj 1 Mg Vial IM PRN PRN Hypoglycemia Protocol Glucose 15 gm 10/08/24 22:06 Glucose Oral Gel 15 Gm Of Glucse In 37.5 Gm Tube PO PRN PRN Hypoglycemia Protocol Hydrocortisone Sodium Succinate 100 mg 10/09/24 14:30 Hydrocortisone Sodium Succinate 100 Mg/2 Ml Vial IV PUSH Q8HR CESAR Ceftriaxone Sodium 1 gm in 50 mls @ 100 mls/hr 10/09/24 12:00 10/09/24 12:05 Rocephin 1 Gm/Ns 50 Ml IVPB Infused Q24H CESAR Infusion Azithromycin 500 mg in 250 mls @ 250 mls/hr 10/09/24 12:00 10/09/24 12:35 Zithromax IVPB Infused Q24H CESAR Infusion Fentanyl Citrate 2,500 mcg in 250 mls @ 5 mls/hr 10/08/24 20:40 10/09/24 14:00 Fentanyl 2,500 Mcg/Ns 250 Ml IV CONT 10/10/24 22:39 50 mcg/hr .Q50H STA 5 mls/hr Titration Protocol 50 MCG/HR Midazolam HCl 100 mg in 100 mls @ 2 mls/hr 10/08/24 20:40 10/09/24 14:00 Versed 100 Mg/Ns 100 Ml IV CONT 10/10/24 22:39 2 mg/hr .Q50H STA 2 mls/hr Titration Protocol 2 MG/HR Dextrose 1,000 mls @ 100 mls/hr 10/08/24 22:06 Dextrose 5% 1,000 Ml IVPB PRN PRN Hypoglycemia Protocol Vasopressin 100 units/ 100 mls @ 2.4 mls/hr 10/08/24 22:45 10/09/24 14:00 Dextrose IV CONT 0.04 units/min .[id number] CESAR 2.4 mls/hr Titration Protocol 0.04 UNITS/MIN Norepinephrine Bitartrate 8 mg in 250 mls @ 54.375 mls/hr 10/09/24 02:15 10/09/24 13:09 Levophed 8 Mg/D5w 250 Ml IV CONT 29 mcg/min .Q4H36M CESAR 54.38 mls/hr Titration Protocol 29 MCG/MIN Albumin Human 100 mls @ 60 mls/hr 10/09/24 13:32 10/09/24 14:30 Albutein IVPB 10/10/24 07:39 60 mls/hr Q6HR CESAR Administration Epinephrine HCl 1 mg/ Dextrose 251 mls @ 15.06 mls/hr 10/09/24 14:00 IV CONT .[id number] CESAR Protocol 1 MCG/MIN Insulin Aspart 3 - 6 units 10/09/24 00:00 10/09/24 11:35 Insulin Aspart (*Bkc) 100 Units/Ml SUB-Q 3 units Q6HR CESAR Administration Protocol Mupirocin 1 applic 10/09/24 09:00 10/09/24 09:27 Mupirocin 2% Oint 22 Gm Tube EACH NARE 1 applic Q12HR CESAR Administration Oseltamivir Phosphate 30 mg 10/11/24 21:00 Oseltamivir Phosphate 30 Mg Capsule PO 10/12/24 21:01 [id number] CESAR Pantoprazole Sodium 40 mg 10/09/24 13:45 Pantoprazole Sodium Iv 40 Mg Vial IV PUSH QAM CESAR Fluticasone/Salmeterol 2 puff 10/09/24 08:00 10/09/24 09:26 Fluticasone/Salmeterol 115-21 Mcg Inhaler 1 Puff INHALATION Not Given Q12HRT CESAR Sevelamer Carbonate 1,600 mg 10/09/24 08:00 10/09/24 11:36 Sevelamer Carbonate 800 Mg Tablet PO Not Given TIDWM CESAR Sodium Chloride 10 ml 10/09/24 14:00 10/09/24 13:10 Central Line Flush IV PUSH 10 ml Q8HR CESAR Administration Sodium Chloride 20 ml 10/09/24 06:24 Central Line Flush IV PUSH PRN PRN after blood draws Vancomycin HCl 1 each 10/08/24 23:03 Vancomycin For Hemodialysis IVPB PRN PRN Vancomycin Protocol Radiology Results: ITS Impressions Pelvis X-Ray 10/08/24 22:22 IMPRESSION: As above. Head CT 10/08/24 23:18 IMPRESSION: No acute intracranial findings. Chest CT 10/08/24 23:27 IMPRESSION: 1. Interstitial thickening in the lower lobes which may indicate pneumonitis. Edema is less likely. 2. Cardiomegaly. 3. Cholelithiasis 4. Splenic cysts unchanged. Chest X-Ray 10/09/24 06:02 IMPRESSION: 1. Mild atelectasis in the mid and lower lung zones. 2. Cardiomegaly. Labs Labs: Laboratory Results - last 24 hr 10/08/24 10/08/24 10/09/24 17:13 22:14 00:21 WBC 7.9 RBC 4.24 L Hgb 13.3 L Hct 41.6 L MCV 98.1 MCH 31.4 MCHC 32.0 RDW 16.1 H Plt Count 54 L MPV 12.3 H Immature Gran % (Auto) Not Reportable Neut % (Auto) Not Reportable Lymph % (Auto) Not Reportable [place] % (Auto) Not Reportable Eos % (Auto) Not Reportable Baso % (Auto) Not Reportable Lymph # (Auto) Not Reportable [place] # (Auto) Not Reportable Eos # (Auto) Not Reportable Baso # (Auto) Not Reportable Abs Immat Gran (auto) Not Reportable Absolute Neuts (auto) Not Reportable Absolute Nucleated RBC Not Reportable Total Counted 100 Neutrophils % (Manual) 84 H Band Neutrophils % 10 H Lymphocytes % (Manual) 4.0 L Monocytes % (Manual) 2 L Nucleated RBC % Not Reportable Abs Neuts (Manual) 7.42 H Abs Lymphs (Manual) 0.31 L Abs Monocytes (Manual) 0.15 Platelet Estimate Decreased % Immature Plt Fraction 9.4 Hypochromasia 1+ Anisocytosis 2+ Crenated Cell Schistocytes None seen PT 22.6 H INR 2.0 APTT 31.6 Puncture Site Right radial ABG pH 7.526 H* ABG pCO2 32.7 L ABG pO2 87.0 ABG PO2/FiO2 Ratio 1.74 ABG HCO3 26.5 H ABG O2 Saturation 97.5 ABG O2 Content 18.4 ABG Base Excess 4.1 A-a Gradient 232.7 Oxyhemoglobin 95.7 Carboxyhemoglobin Methemoglobin Reduced Hemoglobin Total Hemoglobin 13.6 O2 Delivery Device Ventilator O2 Liters/Min Not Reportable Minute Volume Not Reportable Vent Rate 18 Vent Mode Cmv FiO2 50 Tidal Volume 500 PEEP 5 Peak Inspir Pressure Not Reportable Pressure Support Not Reportable Sodium 136 L Potassium 4.2 Chloride 92 L Carbon Dioxide 34 H Anion Gap 10 BUN 26 H Creatinine 3.68 H Estim Creat Clear Calc 16 Estimated GFR 16 L Glucose 132 H POC Capillary Glucose 140 H Lactic Acid 2.9 H Calcium 7.4 L Phosphorus Magnesium Total Bilirubin 2.1 H AST 28 ALT 15 Alkaline Phosphatase 139 H Total Protein 8.0 Albumin 3.5 Nasal MRSA (PCR) Influenza A (RT-PCR) Positive A Influenza B (RT-PCR) Negative RSV (RT-PCR) Negative SARS-CoV-2 RNA (RT-PCR) Negative 10/09/24 10/09/24 10/09/24 04:50 05:20 09:34 WBC 20.9 H RBC 4.68 Hgb 14.5 Hct 46.4 MCV 99.1 MCH 31.0 MCHC 31.3 L RDW 16.4 H Plt Count 80 L MPV 12.1 H Immature Gran % (Auto) 1.2 H Neut % (Auto) 81.0 H Lymph % (Auto) 8.6 L [place] % (Auto) 8.9 H Eos % (Auto) 0.0 Baso % (Auto) 0.3 Lymph # (Auto) 1.80 [place] # (Auto) 1.9 H Eos # (Auto) 0.0 Baso # (Auto) 0.1 Abs Immat Gran (auto) 0.25 H Absolute Neuts (auto) 17.0 H Absolute Nucleated RBC 0.020 H Total Counted Neutrophils % (Manual) Band Neutrophils % 0 Lymphocytes % (Manual) Monocytes % (Manual) Nucleated RBC % 0.1 Abs Neuts (Manual) Abs Lymphs (Manual) Abs Monocytes (Manual) Platelet Estimate Decreased % Immature Plt Fraction 10.5 Hypochromasia Anisocytosis 1+ Crenated Cell 2+ Schistocytes None seen PT INR APTT Puncture Site Right radial ABG pH 7.442 ABG pCO2 37.8 ABG pO2 80.3 ABG PO2/FiO2 Ratio 2.68 ABG HCO3 25.2 ABG O2 Saturation 96.3 ABG O2 Content 20.2 ABG Base Excess 1.3 A-a Gradient 89.2 Oxyhemoglobin 94.6 Carboxyhemoglobin 1.4 Methemoglobin 0.3 Reduced Hemoglobin 3.7 Total Hemoglobin 15.2 O2 Delivery Device Ventilator O2 Liters/Min Not Reportable Minute Volume Not Reportable Vent Rate 14 Vent Mode Cmv FiO2 30 Tidal Volume 500 PEEP 5 Peak Inspir Pressure Not Reportable Pressure Support Not Reportable Sodium 135 L Potassium 5.0 Chloride 92 L Carbon Dioxide 28 Anion Gap 15 H BUN 31 H Creatinine 4.31 H Estim Creat Clear Calc 13 Estimated GFR 13 L Glucose 199 H POC Capillary Glucose Lactic Acid 2.5 H 2.5 H Calcium 6.9 L Phosphorus 3.2 Magnesium 2.0 Total Bilirubin 2.6 H AST 40 ALT 16 Alkaline Phosphatase 122 Total Protein 7.0 Albumin 3.3 L Nasal MRSA (PCR) Detected A* Influenza A (RT-PCR) Influenza B (RT-PCR) RSV (RT-PCR) SARS-CoV-2 RNA (RT-PCR) 10/09/24 11:11 WBC RBC Hgb Hct MCV MCH MCHC RDW Plt Count MPV Immature Gran % (Auto) Neut % (Auto) Lymph % (Auto) [place] % (Auto) Eos % (Auto) Baso % (Auto) Lymph # (Auto) [place] # (Auto) Eos # (Auto) Baso # (Auto) Abs Immat Gran (auto) Absolute Neuts (auto) Absolute Nucleated RBC Total Counted Neutrophils % (Manual) Band Neutrophils % Lymphocytes % (Manual) Monocytes % (Manual) Nucleated RBC % Abs Neuts (Manual) Abs Lymphs (Manual) Abs Monocytes (Manual) Platelet Estimate % Immature Plt Fraction Hypochromasia Anisocytosis Crenated Cell Schistocytes PT INR APTT Puncture Site ABG pH ABG pCO2 ABG pO2 ABG PO2/FiO2 Ratio ABG HCO3 ABG O2 Saturation ABG O2 Content ABG Base Excess A-a Gradient Oxyhemoglobin Carboxyhemoglobin Methemoglobin Reduced Hemoglobin Total Hemoglobin O2 Delivery Device O2 Liters/Min Minute Volume Vent Rate Vent Mode FiO2 Tidal Volume PEEP Peak Inspir Pressure Pressure Support Sodium Potassium Chloride Carbon Dioxide Anion Gap BUN Creatinine Estim Creat Clear Calc Estimated GFR Glucose POC Capillary Glucose 220 H Lactic Acid Calcium Phosphorus Magnesium Total Bilirubin AST ALT Alkaline Phosphatase Total Protein Albumin Nasal MRSA (PCR) Influenza A (RT-PCR) Influenza B (RT-PCR) RSV (RT-PCR) SARS-CoV-2 RNA (RT-PCR) Quality VTE Prophylaxis VTE prophylaxis: pharmacologic ordered (on apixaban)
[2024-10-09] MEDS: PANTOPRAZOLE SODIUM IV 40 MG VIAL IV PUSH (14:42)
[2024-10-09] MEDS: EPINEPHrine INJ 1 MG in DEXTROSE 5% IN WATER 250 ML 15.06 MG IV CONT (14:42)
[2024-10-09] MEDS: HYDROCORTISONE SODIUM SUCCINATE 100 MG/2 ML VIAL IV PUSH ×2 (14:57→20:59)
--- NOTE | 2024-10-09 15:10 | P.CONIN_ITS ---
Assessment and Plan Assessment and plan (1) Respiratory failure: Code(s): J96.90 - Respiratory failure, unspecified, unspecified whether with hypoxia or hypercapnia Status: Acute Assessment and Plan: Acute respiratory failure likely related to pneumonia, altered mental status, airway protection 10/08: Intubated -currently on CMV mode of ventilation, peep of 5, 30% FiO2 - continue bronchodilators, add Pulmicort -chest x-ray reviewed, ventilator adjusted -sedated with fentanyl and Versed infusion maintain RASS of 0 to -2 -daily sedation vacation and SBT (2) Septic shock: Code(s): A41.9 - Sepsis, unspecified organism; R65.21 - Severe sepsis with septic shock Status: Acute Assessment and Plan: Patient presented with altered mental status, hypotension, lactic acidosis -septic shock likely related to bacteremia, pneumonia -continue azithromycin, ceftriaxone, vanc, (10/08) -10/08: Blood cultures growing gram-positive cocci in chains -elevated lactic acid, continue to trend -patient did receive 1500 mL in IV fluids on had upon admission - Started albumin 25% q.6 hours x4 doses for intravascular volume expansion (3) Bacteremia: Code(s): R78.81 - Bacteremia Status: Acute Assessment and Plan: 10/08: Blood cultures growing Gram-positive cocci in chains, identification pending -continue antibiotics as a (4) Influenza A: Code(s): J10.1 - Influenza due to other identified influenza virus with other respiratory manifestations Status: Acute Assessment and Plan: Continue Tamiflu, renally dosed (5) Pneumonia: Code(s): J18.9 - Pneumonia, unspecified organism Status: Acute Assessment and Plan: Chest x-ray showed pneumonia, CT chest showed pneumonitis, -continue antibiotics as above (6) Altered mental status: Code(s): R41.82 - Altered mental status, unspecified Status: Acute Assessment and Plan: Currently intubated and sedated (7) End-stage renal disease on hemodialysis: Code(s): N18.6 - End stage renal disease; Z99.2 - Dependence on renal dialysis Status: Acute Assessment and Plan: End-stage renal disease on dialysis (M, W, F) -nephrology following -dialysis per Nephrology -hyperkalemia will treat (8) Diabetes: Qualifiers: Diabetes mellitus type: type 2 Diabetes mellitus detention insulin use: without detention use Diabetes mellitus complication status: with kidney complications Diabetes mellitus complication detail: with chronic kidney disease Chronic kidney disease stage: on chronic dialysis Qualified Code(s): E 11.22 - Type 2 diabetes mellitus with diabetic chronic kidney disease; N18.6 - End stage renal disease; Z99.2 - Dependence on renal dialysis Code(s): E11.9 - Type 2 diabetes mellitus without complications Status: Chronic Assessment and Plan: Accu-Cheks and sliding scale Plan DVT prophylaxis: SCDs, note chemoprophylaxis secondary to thrombocytopenia Stress ulcer prophylaxis: Nutrition: NPO for now Code Status: Full code Critical Care Time Spent: 52 minutes Discussed with patient's at bedside updated with patient's condition plan of care. She is aware that patient has bacteremia, pneumonia, septic shock, on 2 blood pressure support medications. I answered all questions Due to a high probability of clinically significant, life threatening deterioration, the patient required my highest level of preparedness to intervene emergently and I personally spent this critical care time directly and personally managing the patient. This critical care time included obtaining a history; examining the patient; pulse oximetry; ordering and review of studies; arranging urgent treatment with development of a management plan; evaluation of patient's response to treatment; frequent reassessment; and discussions with other providers. It was exclusive of separately billable procedures and treating other patients and teaching time. Please see Assessment and Plan section and the rest of the note for further information on patient assessment and treatment This dictation may have been done utilizing a voice recognition system. Attempts have been made to correct errors. However, there may be uncorrected grammatical, spelling, and recognitions errors present. Donor Floor Technician Consult Note Consult date: 10/09/24 Reason for consult: Altered mental status, generalized weakness, hypotension, shock, acute respiratory failure, bacteremia HPI: Khalif Yanez is a 84 year old male with past medical history of end-stage renal disease on hemodialysis, CHF, pulmonary hypertension, type 2 diabetes, atrial fibrillation on anticoagulation, hypertension, chronic anemia, sleep apnea, hyperlipidemia, presented the ED on 10/08/2024 with complaints of altered mental status, confusion after dialysis. Patient was intubated in the ER. According the patient's spouse he has not been feeling too well for the last few days, blood pressures have been low, he has had generalized weakness, decreased p.o. intake, increasing confusion, mumbling to himself and not making sense. Right femoral vein central line was being attempted and patient would not tolerate and was thrashing around in the ED so he was intubated for airway protection. According the patient also had some shortness of breath along with cough 1 day prior to admission which was nonproductive. In the ER patient was tested for influenza A and negative for RSV, COVID. Patient was hypotensive with systolics in the 70s, was given 1500 mL of fluid bolus as he has a end- stage renal disease on dialysis, central line was inserted as mentioned above and patient started on vasopressors. P white count was 7.9 with 10% bands. Lactic acid was 2.9. Patient's transfer the ICU for further management 10/09/2024: Patient seen and examined the ICU. Remains intubated on CMV mode of ventilation, peep of 5, 30% FiO2. WBC count is elevated at 20.9, platelets of 80, potassium of 5.0, lactic acid of 2.5, total bilirubin of 2.6, LFTs are normal, head CT was negative on admission. Chest CT showed pneumonitis, chest x-ray shows atelectasis versus pneumonia. Blood cultures from 10/08/2024 a growing gram-positive cocci in chains. Patient has thick secretions. Sedated with fentanyl and Versed infusion, does not open his eyes or follow simple commands. No urine output since he has end-stage renal disease, afebrile. Remains on Levophed and vasopressin Review of Systems 2 Review of Systems: ROS unobtainable: Yes unobtainable due to endotracheal tube, unobtainable due to medical condition and unobtainable due to mental status REPLACED BY [facility] Past Medical History Medical History Shingles Benign prostatic hyperplasia Vitamin D deficiency Secondary renal hyperparathyroidism Chronic anticoagulation Atrial fibrillation with slow ventricular response Pulmonary hypertension Congestive heart failure 07/2024: Hyperdynamic systolic function, estimated EF 70%, severely dilated right ventricle. Gout Sleep apnea intolerant of CPAP End-stage renal disease on hemodialysis Anemia of chronic disease Umbilical hernia Iron deficiency anemia B12 deficiency anemia Essential (primary) hypertension Mixed hyperlipidemia Type 2 diabetes mellitus with diabetic neuropathy Surgical History Surgical History Status post insertion of spinal cord stimulator History of cataract extraction with lens replacement History of bilateral knee arthroplasty Normal colonoscopy (~2007) Family History Family History Father Cerebrovascular accident Mother Hypertension Sibling Hypertension Other Kidney disease, chronic, end stage on dialysis Social History Social History Social History: Surrogate medical decision maker: Kathy Yanez, spouse. Code status: Full code. Smoking packs per day: 0.5 Smoking cigarettes per day: 10.0 Years smoked: 5 Smoking pack-years: 2.50 Smoking status: Former smoker Second hand tobacco smoke exposure: Yes Alcohol intake: never Substance use: never Substance use type: does not use Do You Feel Safe in your Home?: Yes Lack of Transportation: No Lack of Food: Never True Current Housing: I Have Housing Concerned About Future Housing: No Difficulty Paying Gas/Electric Bills: No Difficulty Paying for Meds: No Currently Unemployed: No Education: Bachelor's Degree Difficulty w/ Childcare or Family Care: No Living arrangements: with family Additional living arrangements comments: Lives with spouse of nearly 60 years. They have a son and daughter. Occupation/Education: retired Additional occupation/education comments: Retired from working with [employer]. Spiritual care concerns: No Meds Home Medications and Allergies Home Medications ?Medication ?Instructions ?Recorded ?Confirmed ?Type atorvastatin 10 mg tablet 10 mg PO DAILY #90 tabs 02/23/24 10/09/24 Rx apixaban 2.5 mg tablet (Eliquis) 2.5 mg PO Q12HR #180 tabs 03/12/24 10/09/24 Rx allopurinol 100 mg tablet 100 mg PO DAILY #90 tabs 03/31/24 10/09/24 Rx bumetanide 1 mg tablet 1 mg PO BID #60 tabs 06/16/24 10/09/24 Rx albuterol sulfate 90 mcg/actuation 2 puff inhalation Q6H PRN 07/12/24 10/09/24 History aerosol inhaler sob/wheezing acetaminophen 325 mg tablet 650 mg (2 x 325 mg) PO Q6H PRN 07/17/24 10/09/24 Rx Mild Pain (1-3) Or Fever #30 tabs fluticasone 250 mcg-salmeterol 50 1 inh inhalation Q12H 07/21/24 10/09/24 History mcg/dose blistr powdr for inhalation (Advair Diskus) tramadol 50 mg tablet 50 mg PO Q8H PRN pain #90 tabs 08/23/24 10/09/24 Rx midodrine 10 mg tablet 10 mg PO WITH DIALYSIS PRN 09/24/24 10/09/24 Rx hypotension with dialysis #12 tabs sevelamer carbonate 800 mg tablet 1,600 mg PO TIDWM 09/24/24 10/09/24 History (Renvela) benzonatate 100 mg capsule See Rx Instructions .Route 10/03/24 10/09/24 Rx .COMPLEX #60 caps Allergies Allergy/AdvReac Type Severity Reaction Status Date / Time No Known Allergies Allergy Verified 10/08/24 17:11 Vital Signs Vital Signs - 24 hr 10/08/24 16:30 10/08/24 17:33 10/08/24 18:31 Temperature 99.8 F H Pulse Rate 87 86 82 Respiratory Rate 22 H 20 23 H Blood Pressure 72/37 L 92/46 L 76/54 L Pulse Oximetry 95 92 93 Oxygen Delivery Nasal Cannula Oxygen Flow Rate 2 Fraction of Inspired Oxygen 10/08/24 18:53 10/08/24 18:56 10/08/24 19:00 Temperature Pulse Rate 85 Respiratory Rate 23 H Blood Pressure Pulse Oximetry 93 93 Oxygen Delivery Nasal Cannula High Flow Therapy with Na Oxygen Flow Rate 2 2 Fraction of Inspired Oxygen 10/08/24 19:01 10/08/24 19:19 10/08/24 19:20 Temperature Pulse Rate 89 79 83 Respiratory Rate 26 H 32 H 24 H Blood Pressure 130/115 H 72/49 L 65/51 L Pulse Oximetry 93 Oxygen Delivery Oxygen Flow Rate Fraction of Inspired Oxygen 10/08/24 19:21 10/08/24 19:25 10/08/24 19:30 Temperature Pulse Rate 77 81 77 Respiratory Rate 26 H 33 H 35 H Blood Pressure 71/55 L Pulse Oximetry 94 89 L Oxygen Delivery Oxygen Flow Rate Fraction of Inspired Oxygen 10/08/24 19:45 10/08/24 20:00 10/08/24 20:00 Temperature Pulse Rate 78 71 Respiratory Rate 18 23 H Blood Pressure Pulse Oximetry 90 Oxygen Delivery Mechanical Ventilation Oxygen Flow Rate Fraction of Inspired Oxygen 50 10/08/24 20:16 10/08/24 20:17 10/08/24 20:21 Temperature Pulse Rate 79 78 85 Respiratory Rate 14 19 20 Blood Pressure 68/22 L 84/68 L Pulse Oximetry 88 L 90 90 Oxygen Delivery Oxygen Flow Rate Fraction of Inspired Oxygen 10/08/24 20:37 10/08/24 20:41 10/08/24 20:45 Temperature Pulse Rate 82 78 68 Respiratory Rate 19 18 18 Blood Pressure 62/43 L Pulse Oximetry 100 99 97 Oxygen Delivery Oxygen Flow Rate Fraction of Inspired Oxygen 10/08/24 20:48 10/08/24 20:51 10/08/24 20:51 Temperature Pulse Rate 76 74 82 Respiratory Rate 18 18 21 H Blood Pressure 77/47 L Pulse Oximetry 97 Oxygen Delivery Oxygen Flow Rate Fraction of Inspired Oxygen 10/08/24 21:00 10/08/24 21:01 10/08/24 21:04 Temperature Pulse Rate 70 70 72 Respiratory Rate 16 19 18 Blood Pressure 62/45 L Pulse Oximetry 99 99 Oxygen Delivery Oxygen Flow Rate Fraction of Inspired Oxygen 10/08/24 21:07 10/08/24 21:11 10/08/24 21:14 Temperature Pulse Rate 78 69 72 Respiratory Rate 18 18 Blood Pressure 62/46 L 63/45 L Pulse Oximetry Oxygen Delivery Oxygen Flow Rate Fraction of Inspired Oxygen 10/08/24 21:15 10/08/24 21:20 10/08/24 21:21 Temperature Pulse Rate 78 66 72 Respiratory Rate 18 18 18 Blood Pressure 67/43 L Pulse Oximetry Oxygen Delivery Oxygen Flow Rate Fraction of Inspired Oxygen 10/08/24 21:30 10/08/24 21:31 10/08/24 21:35 Temperature Pulse Rate 69 72 71 Respiratory Rate 17 13 Blood Pressure 64/45 L 68/45 L Pulse Oximetry 99 81 L Oxygen Delivery Oxygen Flow Rate Fraction of Inspired Oxygen 10/08/24 21:35 10/08/24 21:36 10/08/24 21:41 Temperature Pulse Rate 71 65 67 Respiratory Rate 18 18 Blood Pressure 68/45 L 69/50 L Pulse Oximetry 97 Oxygen Delivery Oxygen Flow Rate Fraction of Inspired Oxygen 10/08/24 21:41 10/08/24 21:45 10/08/24 21:46 Temperature Pulse Rate 72 68 72 Respiratory Rate 18 18 17 Blood Pressure 69/50 L 80/65 L Pulse Oximetry 97 95 97 Oxygen Delivery Oxygen Flow Rate Fraction of Inspired Oxygen 10/08/24 21:49 10/08/24 21:51 10/08/24 21:52 Temperature Pulse Rate 71 71 70 Respiratory Rate 18 18 18 Blood Pressure 71/50 L Pulse Oximetry 98 Oxygen Delivery Oxygen Flow Rate Fraction of Inspired Oxygen 10/08/24 21:56 10/08/24 21:56 10/08/24 22:00 Temperature Pulse Rate 72 69 77 Respiratory Rate 18 18 Blood Pressure 76/44 L 76/44 L Pulse Oximetry 99 97 Oxygen Delivery Oxygen Flow Rate Fraction of Inspired Oxygen 10/08/24 22:01 10/08/24 22:02 10/08/24 22:05 Temperature Pulse Rate 68 64 78 Respiratory Rate 16 18 Blood Pressure 76/53 L Pulse Oximetry 97 100 Oxygen Delivery Oxygen Flow Rate Fraction of Inspired Oxygen 10/08/24 22:06 10/08/24 22:11 10/08/24 22:12 Temperature Pulse Rate 72 73 70 Respiratory Rate 16 16 Blood Pressure 70/52 L 83/51 L 83/51 L Pulse Oximetry 100 100 Oxygen Delivery Oxygen Flow Rate Fraction of Inspired Oxygen 10/08/24 22:15 10/08/24 22:16 10/08/24 22:25 Temperature Pulse Rate 66 65 69 Respiratory Rate 18 Blood Pressure 80/50 L 76/52 L Pulse Oximetry Oxygen Delivery Oxygen Flow Rate Fraction of Inspired Oxygen 10/08/24 22:32 10/08/24 22:42 10/08/24 22:51 Temperature Pulse Rate 68 75 72 Respiratory Rate 14 Blood Pressure 79/52 L 74/51 L 89/56 L Pulse Oximetry 97 Oxygen Delivery Oxygen Flow Rate Fraction of Inspired Oxygen 10/08/24 23:00 10/08/24 23:28 10/08/24 23:45 Temperature Pulse Rate 68 77 Respiratory Rate 14 Blood Pressure 89/56 L 77/59 L Pulse Oximetry 97 Oxygen Delivery Mechanical Ventilation Oxygen Flow Rate Fraction of Inspired Oxygen 50 10/08/24 23:46 10/09/24 00:01 10/09/24 00:01 Temperature Pulse Rate 67 67 65 Respiratory Rate 15 Blood Pressure 77/59 L 84/59 L Pulse Oximetry Oxygen Delivery Oxygen Flow Rate Fraction of Inspired Oxygen 10/09/24 00:01 10/09/24 00:01 10/09/24 00:01 Temperature 99.1 F Pulse Rate 77 64 67 Respiratory Rate 14 14 Blood Pressure 84/59 L 84/59 L Pulse Oximetry 98 Oxygen Delivery Oxygen Flow Rate Fraction of Inspired Oxygen 10/09/24 00:30 10/09/24 01:00 10/09/24 01:00 Temperature Pulse Rate 61 64 64 Respiratory Rate 14 14 Blood Pressure 97/61 L Pulse Oximetry Oxygen Delivery Oxygen Flow Rate Fraction of Inspired Oxygen 10/09/24 01:00 10/09/24 01:02 10/09/24 02:00 Temperature Pulse Rate 64 64 64 Respiratory Rate 14 Blood Pressure 92/64 L Pulse Oximetry 98 97 Oxygen Delivery Mechanical Ventilation Oxygen Flow Rate Fraction of Inspired Oxygen 50 10/09/24 02:00 10/09/24 02:00 10/09/24 02:00 Temperature 98.8 F Pulse Rate 64 60 66 Respiratory Rate 15 14 Blood Pressure 88/62 L 88/62 L Pulse Oximetry 97 Oxygen Delivery Oxygen Flow Rate Fraction of Inspired Oxygen 10/09/24 02:00 10/09/24 02:00 10/09/24 02:00 Temperature Pulse Rate 64 66 65 Respiratory Rate 14 26 H Blood Pressure 88/62 L 88/62 L Pulse Oximetry 96 Oxygen Delivery Oxygen Flow Rate Fraction of Inspired Oxygen 10/09/24 02:00 10/09/24 02:15 10/09/24 02:28 Temperature Pulse Rate 63 63 63 Respiratory Rate Blood Pressure 88/61 L 93/60 L Pulse Oximetry 98 Oxygen Delivery Mechanical Ventilation Oxygen Flow Rate Fraction of Inspired Oxygen 40 10/09/24 02:45 10/09/24 03:14 10/09/24 03:14 Temperature Pulse Rate 60 60 Respiratory Rate 14 14 Blood Pressure 92/60 L Pulse Oximetry 98 96 Oxygen Delivery Mechanical Ventilation Oxygen Flow Rate Fraction of Inspired Oxygen 30 30 10/09/24 03:45 10/09/24 04:00 10/09/24 04:00 Temperature 98.5 F Pulse Rate 61 60 60 Respiratory Rate 14 14 Blood Pressure 89/55 L 92/63 L Pulse Oximetry 98 Oxygen Delivery Oxygen Flow Rate Fraction of Inspired Oxygen 10/09/24 04:00 10/09/24 04:00 10/09/24 04:00 Temperature Pulse Rate 60 60 60 Respiratory Rate 14 Blood Pressure 92/63 L 92/63 L Pulse Oximetry Oxygen Delivery Oxygen Flow Rate Fraction of Inspired Oxygen 10/09/24 04:00 10/09/24 05:00 10/09/24 05:50 Temperature Pulse Rate 59 L 58 L 57 L Respiratory Rate Blood Pressure 94/68 L Pulse Oximetry 99 Oxygen Delivery Mechanical Ventilation Oxygen Flow Rate Fraction of Inspired Oxygen 30 10/09/24 05:50 10/09/24 06:00 10/09/24 06:00 Temperature Pulse Rate 57 L 106 H 58 L Respiratory Rate 14 Blood Pressure 94/68 L 105/72 Pulse Oximetry 99 Oxygen Delivery Oxygen Flow Rate Fraction of Inspired Oxygen 10/09/24 06:00 10/09/24 06:00 10/09/24 06:00 Temperature Pulse Rate 60 58 L 58 L Respiratory Rate 14 Blood Pressure 105/72 105/72 Pulse Oximetry Oxygen Delivery Oxygen Flow Rate Fraction of Inspired Oxygen 10/09/24 06:00 10/09/24 07:49 10/09/24 08:00 Temperature 97.6 F Pulse Rate 58 L 55 L 53 L Respiratory Rate 14 11 L Blood Pressure 105/66 Pulse Oximetry 99 99 Oxygen Delivery Mechanical Ventilation Oxygen Flow Rate Fraction of Inspired Oxygen 30 10/09/24 08:00 10/09/24 08:00 10/09/24 08:00 Temperature Pulse Rate 53 L 53 L 53 L Respiratory Rate 14 Blood Pressure 105/66 105/66 Pulse Oximetry Oxygen Delivery Oxygen Flow Rate Fraction of Inspired Oxygen 10/09/24 08:00 10/09/24 08:00 10/09/24 08:00 Temperature Pulse Rate 53 L Respiratory Rate 14 14 Blood Pressure Pulse Oximetry 99 Oxygen Delivery Mechanical Ventilation Oxygen Flow Rate Fraction of Inspired Oxygen 30 30 10/09/24 08:00 10/09/24 09:00 10/09/24 09:46 Temperature Pulse Rate 52 L 53 L Respiratory Rate Blood Pressure 96/68 L Pulse Oximetry Oxygen Delivery Oxygen Flow Rate Fraction of Inspired Oxygen 21 10/09/24 10:00 10/09/24 10:00 10/09/24 10:00 Temperature 97.4 F L Pulse Rate 54 L 54 L 60 Respiratory Rate 14 14 Blood Pressure 98/67 L 98/67 L Pulse Oximetry 96 Oxygen Delivery Oxygen Flow Rate Fraction of Inspired Oxygen 10/09/24 10:00 10/09/24 10:00 10/09/24 10:00 Temperature Pulse Rate 60 55 L 55 L Respiratory Rate 14 Blood Pressure 98/67 L Pulse Oximetry Oxygen Delivery Oxygen Flow Rate Fraction of Inspired Oxygen 10/09/24 10:49 10/09/24 11:03 10/09/24 11:03 Temperature Pulse Rate 57 L 60 60 Respiratory Rate Blood Pressure 95/64 L 95/64 L Pulse Oximetry 95 Oxygen Delivery Mechanical Ventilation Oxygen Flow Rate Fraction of Inspired Oxygen 21 10/09/24 11:44 10/09/24 12:00 10/09/24 12:00 Temperature Pulse Rate 56 L 61 57 L Respiratory Rate 14 Blood Pressure 93/61 L 87/56 L Pulse Oximetry Oxygen Delivery Oxygen Flow Rate Fraction of Inspired Oxygen 10/09/24 12:00 10/09/24 12:00 10/09/24 12:00 Temperature Pulse Rate 58 L Respiratory Rate 14 14 Blood Pressure Pulse Oximetry 95 Oxygen Delivery Mechanical Ventilation Oxygen Flow Rate Fraction of Inspired Oxygen 21 21 10/09/24 12:00 10/09/24 12:00 10/09/24 12:00 Temperature 97.5 F L 97.3 F L Pulse Rate 60 55 L 58 L Respiratory Rate 14 13 Blood Pressure 87/56 L 87/56 L Pulse Oximetry 95 95 Oxygen Delivery Oxygen Flow Rate Fraction of Inspired Oxygen 10/09/24 12:36 10/09/24 12:38 10/09/24 13:09 Temperature Pulse Rate 56 L 50 L 59 L Respiratory Rate 14 Blood Pressure 76/53 L 72/58 L Pulse Oximetry Oxygen Delivery Oxygen Flow Rate Fraction of Inspired Oxygen 10/09/24 13:57 10/09/24 13:57 10/09/24 14:00 Temperature Pulse Rate 60 60 56 L Respiratory Rate 14 14 Blood Pressure Pulse Oximetry 94 Oxygen Delivery Mechanical Ventilation Oxygen Flow Rate Fraction of Inspired Oxygen 21 10/09/24 14:00 10/09/24 14:00 10/09/24 14:00 Temperature Pulse Rate 57 L 57 L 57 L Respiratory Rate 14 14 Blood Pressure 87/60 L 87/60 L Pulse Oximetry 94 Oxygen Delivery Oxygen Flow Rate Fraction of Inspired Oxygen 10/09/24 14:00 10/09/24 14:10 10/09/24 14:34 Temperature Pulse Rate 57 L 60 Respiratory Rate 14 Blood Pressure Pulse Oximetry Oxygen Delivery Oxygen Flow Rate Fraction of Inspired Oxygen 30 10/09/24 14:42 10/09/24 14:58 Temperature Pulse Rate 49 L 57 L Respiratory Rate Blood Pressure 87/57 L 93/60 L Pulse Oximetry Oxygen Delivery Oxygen Flow Rate Fraction of Inspired Oxygen Exam 2 Narrative: General: Sedated and intubated, in no acute distress HEENT:? Pupils equal and reactive bilaterally Neck:? Supple Respiratory:? Coarse breath sounds bilaterally, decreased at bases, no wheezing, adequate air entry Cardiac:? Irregularly irregular, bradycardic Abdomen:? Soft, nontender, nondistended, protuberant, hypoactive bowel sound Extremities:? Bilateral lower extremity edema pitting in nature, palpable pedal pulses Neuro:? Patient is intubated, sedated, does not open his eyes or follow simple commands, withdraws to pain in all extremity Skin:? Skin is dry and flaky Psych:? Unable to assess at this time Results Labs 10/09/24 05:20 10/09/24 05:20 Labs: Short CBC 10/08/24 10/09/24 Range/Units 17:13 05:20 WBC 7.9 20.9 H (4.5-10.0) K/mm3 Hgb 13.3 L 14.5 (14.0-18.0) g/dL Hct 41.6 L 46.4 (42.0-52.0) % Plt Count 54 L 80 L (150-375) k/mm3 BMP 10/08/24 10/09/24 17:13 05:20 Sodium 136 L 135 L Potassium 4.2 5.0 Chloride 92 L 92 L Carbon Dioxide 34 H 28 BUN 26 H 31 H Creatinine 3.68 H 4.31 H Glucose 132 H 199 H Calcium 7.4 L 6.9 L Liver Function 10/08/24 10/09/24 Range/Units 17:13 05:20 Total Bilirubin 2.1 H 2.6 H (0.2-1.3) mg/dL AST 28 40 (17-59) U/L ALT 15 16 (6-50) U/L Alkaline Phosphatase 139 H 122 (38-126) U/L Albumin 3.5 3.3 L (3.5-5.1) g/dL Quality VTE Prophylaxis VTE prophylaxis: mechanical ordered If No VTE Prophylaxis Answer both mechanical and pharmacologic: Reason no pharmacologic proph: medical contraindication thrombocytopenia Hospitalist MIPS Advance Care Plan I have confirmed that the patient's Advanced Care Plan is present, code status is documented, or surrogate decision maker is listed in patient medical record.: Yes Medication Reconciliation I have utilized all available resources to obtain, update and review the patients current medications (includes all prescriptions, OTC, herbals, cannabis, and nutritional supplements).: Yes The patient is not eligible for med reconciliation; the patient is in a emergent medical situation where delaying treatment would jeopardize the patients health.: Yes
[2024-10-09] MEDS: ALBUTEROL SULFATE NEB 2.5 MG/3 ML INH 10 MG INHALATION (15:55)
[2024-10-09] MEDS: DEXTROSE 50% 25 GM/50 ML SYRINGE IV PUSH (16:29)
[2024-10-09] MEDS: SODIUM BICARBONATE 8.4% 50 MEQ/50 ML SYRINGE IV PUSH (16:29)
[2024-10-09] MEDS: INSULIN HUMAN REGULAR (*BKC) 100 UNITS/ML 10 UNITS IV PUSH (16:30)
--- NOTE | 2024-10-09 18:17 | P.PCNBED_ITS ---
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
[2024-10-09 18:41] LABS: Glucose Point of Care 182 mg/dl (65-105)
[2024-10-09 19:22] LABS: Lactic Acid Reflex 2.9 mmol/L (0.7-2.0)
[2024-10-09] MEDS: BUDESONIDE RESPULE NEB 0.5 MG/2 ML AMP INHALATION (20:22)
[2024-10-09] MEDS: SODIUM ZIRCONIUM CYCLOSILICATE 10 GM POWD.PACK PO (20:59)
[2024-10-09] MEDS: NOREPINEPHRINE BITARTRATE 16 MG in DEXTROSE 5% IN WATER 234 ML 28.13 MG IV CONT (21:18)
[2024-10-09 22:08] LABS: Reflex Lactic Acid Yes or No Add Lactic
[2024-10-09] MEDS: EPINEPHrine INJ 4 MG in DEXTROSE 5% IN WATER 250 ML 15.24 MG IV CONT (23:10)
[2024-10-09 23:40] LABS: Lactic Acid 3.1 mmol/L (0.7-2.0)
[2024-10-09 23:46] LABS: Vancomycin Random 14.5 ug/mL (10-20)
[2024-10-10] VITALS (70 sets, daily range): BP systolic 82–127; BP diastolic 49–68; PULSE 53–71; RESP 14–16; TEMP 36.3–37.3; O2SAT 95–100
[2024-10-10 00:01] LABS: Glucose Point of Care 261 mg/dl (65-105)
[2024-10-10] MEDS: INSULIN ASPART (*BKC) 100 UNITS/ML SUB-Q ×4 (00:18→17:21)
[2024-10-10] MEDS: IPRATROPIUM 0.5 MG/ALBUTEROL SULFATE 2.5 MG AMPUL.NEB 3 ML INHALATION ×3 (01:37→19:47)
--- NOTE | 2024-10-10 03:24 | PC.NURSE ---
Daylight Savings Time For Daylight Savings Time Ending in the Fall - Clocks are moved back. For Daylight Savings Time Beginning in the Spring - Clocks are moved ahead. For [facility], the time of change occurs at 0200 hrs. Time is taken from the server engineer. This entry on the patient's chart recognizes the change in time reflected during documentation. Example: 2 entries for vital signs may be charted for 0200 hrs.
[2024-10-10] MEDS: VANCOMYCIN 500 MG/NS 100 ML 500 MG/100 ML BAG 100 MG IVPB (03:50)
[2024-10-10] MEDS: MIDAZOLAM 100MG/NS 100ML(*CRX) 100 MG/100 ML BAG IV CONT (04:50)
[2024-10-10] MEDS: FENTANYL 2,500MCG/NS250ML(*CRX 2,500 MCG/250 ML BAG 10 MCG IV CONT (04:51)
[2024-10-10 04:57] LABS: Alveolar/Arterial O2 Gradient 102.1 mmHg; Base Excess ABG -2.5 mEq/l (+/-2.0); Carboxyhemoglobin 0.9 % THb (0-2.0); Fractional Inspired Oxygen 30 %; HCO3 ABG 22.2 mEq/l (22.0-26.0); Methemoglobin ABG 0.3 %THb (0-1.5); Oxygen Content ABG 17.1 %vol (16.0-22.0); Oxygen Saturation ABG 93.2 % (95.0-100.0); Oxyhemoglobin 90.5 % THb (90.0-100.0); PCO2 ABG 38.1 mmHg (35.0-45.0); PO2 FiO2 Ratio Arterial Blood 2.23 %; Reduced Hemoglobin 8.3 %THb (0-5.0); Total Hemoglobin 13.4 g/dL (12.0-18.0); pH ABG 7.383 (7.350-7.450)
[2024-10-10 05:03] LABS: Site Drawn ARTLINE
[2024-10-10 05:04] LABS: Arterial Blood Gas Ventilator rate 14 /MIN; Device VENTILATOR; Modified Allen's Test Pass
[2024-10-10] MEDS: HYDROCORTISONE SODIUM SUCCINATE 100 MG/2 ML VIAL IV PUSH ×3 (05:04→20:28)
[2024-10-10 05:05] LABS: Arterial Blood Gas PEEP 5 cmH2O; Arterial Blood Gas Tidal Volume 500 ml; Arterial Blood Gas Vent Mode CMV
[2024-10-10] MEDS: ALBUMIN HUMAN 25% 25 GM/100 ML 100 ML IVPB (05:06)
[2024-10-10] MEDS: CENTRAL LINE FLUSH 10 ML IV PUSH ×3 (05:06→20:00)
[2024-10-10 05:25] LABS: Hematocrit 43.9 % (42.0-52.0); Hemoglobin 14.1 g/dL (14.0-18.0); Immature Platelet Fraction Pct 9.5 % (0.9-11.2); Mean Corpuscular HGB Conc 32.1 g/dl (32-36); Mean Corpuscular Hemoglobin 31.4 pg (26-34); Mean Corpuscular Volume 97.8 fl (80-100); Mean Platelet Volume 12.4 fl (7.4-10.4); Platelet Count Result 86 k/mm3 (150-375); Red Blood Count 4.49 M/mm3 (4.6-6.20); Red Cell Distribution Width 16.3 % (11.5-14.5); White Blood Count 17.8 K/mm3 (4.5-10.0)
[2024-10-10 05:36] LABS: Lactic Acid Reflex 2.6 mmol/L (0.7-2.0)
[2024-10-10 05:39] LABS: Alanine Aminotransferase 16 U/L (6-50); Albumin Level 3.8 g/dL (3.5-5.1); Alkaline Phosphatase 75 U/L (38-126); Anion Gap 16 mmol/L (4-12); Aspartate Amino Transferase 32 U/L (17-59); Bilirubin,Total 2.2 mg/dL (0.2-1.3); Blood Urea Nitrogen 43 mg/dL (9-20); Calcium 6.6 mg/dL (8.4-10.2); Carbon Dioxide 27 mmol/L (22-30); Chloride 91 mmol/L (98-107); Estimated CRCL calculation 10 ml/min; Estimated Glomerular Filt Rate 11; Glucose 234 mg/dL (65-110); INR 2.2; Magnesium 2.1 mg/dL (1.6-2.3); Phosphorus 4.6 mg/dL (2.5-4.5); Potassium 5.3 mmol/L (3.4-5.0); Sodium 134 mmol/L (137-145)
[2024-10-10 06:34] LABS: Band Neutrophils Percent 6 % (0-6); Lymphocytes Absolute Manual 0.35 K/mm3 (1.1-4.5); Lymphocytes Percent Manual 2 % (18-44); Monocytes Absolute Manual 0.17 K/mm3 (0.1-0.90); Monocytes Percent Manual 1 % (3-9); Neutrophils Absolute Manual 17.26 K/mm3 (1.3-6.7); Neutrophils Percent Manual 91 % (46-73); Platelet Estimate Decreased (Adequate); Schistocytes None Seen; Total Cells Counted 100
[2024-10-10 06:34] LABS: Glucose Point of Care 233 mg/dl (65-105)
[2024-10-10] MEDS: NOREPINEPHRINE BITARTRATE 16 MG in DEXTROSE 5% IN WATER 234 ML 28.13 MG IV CONT (06:57)
[2024-10-10] MEDS: ALBUTEROL SULFATE NEB 2.5 MG/3 ML INH 10 MG INHALATION ×2 (08:02→14:51)
[2024-10-10] MEDS: PANTOPRAZOLE SODIUM IV 40 MG VIAL IV PUSH (08:03)
[2024-10-10] MEDS: SEVELAMER CARBONATE 800 MG TABLET 1600 MG PO ×3 (08:03→17:23)
[2024-10-10] MEDS: APIXABAN 2.5 MG TABLET PO ×2 (08:04→20:28)
[2024-10-10] MEDS: SODIUM BICARBONATE 8.4% 50 MEQ/50 ML SYRINGE IV PUSH ×2 (08:04→14:56)
[2024-10-10] MEDS: allopurinoL 100 MG TABLET PO (08:04)
[2024-10-10] MEDS: ATORVASTATIN 10 MG TABLET PO (08:04)
[2024-10-10] MEDS: INSULIN HUMAN REGULAR (*BKC) 100 UNITS/ML 10 UNITS IV PUSH ×2 (08:05→14:56)
[2024-10-10] MEDS: SODIUM ZIRCONIUM CYCLOSILICATE 10 GM POWD.PACK PO ×4 (08:05→20:40)
[2024-10-10] MEDS: CALCIUM GLUC 2,000 MG/NS 100ML 2,000 MG/100 ML BAG 100 MG IVPB (08:05)
[2024-10-10] MEDS: DEXTROSE 50% 25 GM/50 ML SYRINGE IV PUSH ×2 (08:05→14:56)
[2024-10-10] MEDS: MUPIROCIN 2% OINT 22 GM TUBE 1 APPLIC EACH NARE ×2 (08:06→20:28)
[2024-10-10] MEDS: BUDESONIDE RESPULE NEB 0.5 MG/2 ML AMP INHALATION ×2 (08:09→19:47)
--- NOTE | 2024-10-10 08:55 | WPDINTPN ---
Progress Note: A&P Assessment and Plan (1) Respiratory failure: Code(s): J96.90 - Respiratory failure, unspecified, unspecified whether with hypoxia or hypercapnia Status: Acute Assessment and Plan: Acute respiratory failure likely related to pneumonia, altered mental status, airway protection 10/08: Intubated -currently on CMV mode of ventilation, peep of 5, 30% FiO2 - continue bronchodilators and Pulmicort -chest x-ray reviewed, ventilator adjusted -sedated with fentanyl and Versed infusion maintain RASS of 0 to -2 -daily sedation vacation and SBT (2) Septic shock: Code(s): A41.9 - Sepsis, unspecified organism; R65.21 - Severe sepsis with septic shock Status: Acute Assessment and Plan: Patient presented with altered mental status, hypotension, lactic acidosis -septic shock likely related to bacteremia, bilateral pneumonia -continue azithromycin, ceftriaxone, vanc, (10/08) -10/08: Blood cultures growing gram-positive cocci in chains, identification pending -lactic acid trending down -patient did receive 1500 mL in IV fluids on had upon admission -status post albumin 25% q.6 hours x4 doses for intravascular volume expansion -patient remains on Levophed and vasopressin, maintain MAP > greater than 65 mmHg or SBP greater than 100 mmHg for adequate end organ perfusion -off epinephrine infusion (3) Bacteremia: Code(s): R78.81 - Bacteremia Status: Acute Assessment and Plan: 10/08: Blood cultures growing Gram-positive cocci in chains, identification pending -continue antibiotics as above (4) Influenza A: Code(s): J10.1 - Influenza due to other identified influenza virus with other respiratory manifestations Status: Acute Assessment and Plan: Continue Tamiflu, renally dosed (5) Pneumonia: Code(s): J18.9 - Pneumonia, unspecified organism Status: Acute Assessment and Plan: Chest x-ray showed pneumonia, CT chest showed pneumonitis, -continue antibiotics as above (6) Altered mental status: Code(s): R41.82 - Altered mental status, unspecified Status: Acute Assessment and Plan: Currently intubated and sedated (7) End-stage renal disease on hemodialysis: Code(s): N18.6 - End stage renal disease; Z99.2 - Dependence on renal dialysis Status: Acute Assessment and Plan: End-stage renal disease on dialysis (M, W, F) -nephrology following -dialysis per Nephrology -hyperkalemia will treat and recheck (8) Diabetes: Qualifiers: Diabetes mellitus type: type 2 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 insulin use: without termite control service representative use Diabetes mellitus complication status: with kidney complications Diabetes mellitus complication detail: with chronic kidney disease Chronic kidney disease stage: on chronic dialysis Qualified Code(s): E11.22 - Type 2 diabetes mellitus with diabetic chronic kidney disease; N18.6 - End stage renal disease; Z99.2 - Dependence on renal dialysis Code(s): E11.9 - Type 2 diabetes mellitus without complications Status: Chronic Assessment and Plan: Accu-Cheks and sliding scale Plan DVT prophylaxis: SCDs, note chemoprophylaxis secondary to thrombocytopenia Stress ulcer prophylaxis: Nutrition: NPO for now Code Status: Full code Critical Care Time Spent: 36 minutes Discussed with patient's at bedside updated with patient's condition plan of care. She is aware that patient has bacteremia, pneumonia, septic shock, on 2 blood pressure support medications. I answered all questions Due to a high probability of clinically significant, life threatening deterioration, the patient required my highest level of preparedness to intervene emergently and I personally spent this critical care time directly and personally managing the patient. This critical care time included obtaining a history; examining the patient; pulse oximetry; ordering and review of studies; arranging urgent treatment with development of a management plan; evaluation of patient's response to treatment; frequent reassessment; and discussions with other providers. It was exclusive of separately billable procedures and treating other patients and teaching time. Please see Assessment and Plan section and the rest of the note for further information on patient assessment and treatment This dictation may have been done utilizing a voice recognition system. Attempts have been made to correct errors. However, there may be uncorrected grammatical, spelling, and recognitions errors present. Subjective Date/time seen: 10/10/24 08:55 Interval history: Reason for consult: Altered mental status, generalized weakness, hypotension, shock, acute respiratory failure, Gram-positive cocci in chains bacteremia, influenza A positive, MRSA screen positive 10/10/2024: Patient seen examined the ICU, remains intubated on CMV mode of ventilation, peep of 5, 30% FiO2. Sedated with fentanyl and Versed infusion, does not open his eyes or follow simple commands. End-stage renal disease on hemodialysis, anuric . Afebrile. Potassium of 5.3, WBC count trending down Review of Systems Review of Systems: ROS unobtainable: Yes unobtainable due to endotracheal tube, unobtainable due to medical condition and unobtainable due to mental status Exam Narrative: General: Sedated and intubated, in no acute distress HEENT:? Pupils equal and reactive bilaterally Neck:? Supple Respiratory:? Coarse breath sounds bilaterally, decreased at bases, no wheezing, adequate air entry Cardiac:? Irregularly irregular, bradycardic Abdomen:? Soft, nontender, nondistended, protuberant, hypoactive bowel sound Extremities:? Bilateral lower extremity edema pitting in nature, palpable pedal pulses Neuro:? Patient is intubated, sedated, does not open his eyes or follow simple commands, withdraws to pain in all extremity Skin:? Skin is dry and flaky Psych:? Unable to assess at this time Objective Data Vital Signs Vital Signs: Vital Signs - 24 hr 10/09/24 08:00 10/09/24 08:00 10/09/24 08:00 Temperature 97.6 F Pulse Rate 53 L 53 L 53 L Respiratory Rate 11 L 14 Blood Pressure 105/66 105/66 Pulse Oximetry 99 Oxygen Delivery Fraction of Inspired Oxygen 10/09/24 08:00 10/09/24 08:00 10/09/24 08:00 Temperature Pulse Rate 53 L 53 L Respiratory Rate 14 14 Blood Pressure 105/66 Pulse Oximetry 99 Oxygen Delivery Mechanical Ventilation Fraction of Inspired Oxygen 30 10/09/24 08:00 10/09/24 08:00 10/09/24 09:00 Temperature Pulse Rate 52 L 53 L Respiratory Rate Blood Pressure 96/68 L Pulse Oximetry Oxygen Delivery Fraction of Inspired Oxygen 30 10/09/24 09:46 10/09/24 10:00 10/09/24 10:00 Temperature 97.4 F L Pulse Rate 54 L 54 L Respiratory Rate 14 Blood Pressure 98/67 L 98/67 L Pulse Oximetry 96 Oxygen Delivery Fraction of Inspired Oxygen 21 10/09/24 10:00 10/09/24 10:00 10/09/24 10:00 Temperature Pulse Rate 60 60 55 L Respiratory Rate 14 14 Blood Pressure 98/67 L Pulse Oximetry Oxygen Delivery Fraction of Inspired Oxygen 10/09/24 10:00 10/09/24 10:49 10/09/24 11:03 Temperature Pulse Rate 55 L 57 L 60 Respiratory Rate Blood Pressure 95/64 L Pulse Oximetry 95 Oxygen Delivery Mechanical Ventilation Fraction of Inspired Oxygen 21 10/09/24 11:03 10/09/24 11:44 10/09/24 12:00 Temperature Pulse Rate 60 56 L 61 Respiratory Rate 14 Blood Pressure 95/64 L 93/61 L Pulse Oximetry Oxygen Delivery Fraction of Inspired Oxygen 10/09/24 12:00 10/09/24 12:00 10/09/24 12:00 Temperature Pulse Rate 57 L 58 L Respiratory Rate 14 14 Blood Pressure 87/56 L Pulse Oximetry 95 Oxygen Delivery Mechanical Ventilation Fraction of Inspired Oxygen 21 10/09/24 12:00 10/09/24 12:00 10/09/24 12:00 Temperature 97.5 F L Pulse Rate 60 55 L Respiratory Rate 14 Blood Pressure 87/56 L Pulse Oximetry 95 Oxygen Delivery Fraction of Inspired Oxygen 21 10/09/24 12:00 10/09/24 12:36 10/09/24 12:38 Temperature 97.3 F L Pulse Rate 58 L 56 L 50 L Respiratory Rate 13 14 Blood Pressure 87/56 L 76/53 L Pulse Oximetry 95 Oxygen Delivery Fraction of Inspired Oxygen 10/09/24 13:09 10/09/24 13:57 10/09/24 13:57 Temperature Pulse Rate 59 L 60 60 Respiratory Rate 14 Blood Pressure 72/58 L Pulse Oximetry 94 Oxygen Delivery Mechanical Ventilation Fraction of Inspired Oxygen 21 10/09/24 14:00 10/09/24 14:00 10/09/24 14:00 Temperature Pulse Rate 56 L 57 L 57 L Respiratory Rate 14 14 Blood Pressure 87/60 L Pulse Oximetry Oxygen Delivery Fraction of Inspired Oxygen 10/09/24 14:00 10/09/24 14:00 10/09/24 14:10 Temperature Pulse Rate 57 L 57 L 60 Respiratory Rate 14 14 Blood Pressure 87/60 L Pulse Oximetry 94 Oxygen Delivery Fraction of Inspired Oxygen 10/09/24 14:34 10/09/24 14:42 10/09/24 14:58 Temperature Pulse Rate 49 L 57 L Respiratory Rate Blood Pressure 87/57 L 93/60 L Pulse Oximetry Oxygen Delivery Fraction of Inspired Oxygen 30 10/09/24 15:53 10/09/24 15:55 10/09/24 15:55 Temperature Pulse Rate 54 L 52 L 52 L Respiratory Rate 14 Blood Pressure 80/51 L Pulse Oximetry 98 Oxygen Delivery Mechanical Ventilation Fraction of Inspired Oxygen 21 10/09/24 16:00 10/09/24 16:00 10/09/24 16:00 Temperature Pulse Rate 55 L 58 L 53 L Respiratory Rate 14 Blood Pressure 102/68 102/68 Pulse Oximetry Oxygen Delivery Fraction of Inspired Oxygen 10/09/24 16:00 10/09/24 16:00 10/09/24 16:00 Temperature 97.5 F L Pulse Rate 53 L Respiratory Rate 14 14 Blood Pressure 102/68 Pulse Oximetry 100 98 Oxygen Delivery Mechanical Ventilation Fraction of Inspired Oxygen 30 30 10/09/24 16:00 10/09/24 16:22 10/09/24 16:37 Temperature Pulse Rate 58 L 54 L 58 L Respiratory Rate Blood Pressure 80/51 L 67/47 L Pulse Oximetry Oxygen Delivery Fraction of Inspired Oxygen 10/09/24 16:40 10/09/24 16:40 10/09/24 18:00 Temperature Pulse Rate 57 L 57 L 60 Respiratory Rate 14 14 Blood Pressure Pulse Oximetry 100 Oxygen Delivery Mechanical Ventilation Fraction of Inspired Oxygen 21 10/09/24 18:00 10/09/24 18:00 10/09/24 18:00 Temperature Pulse Rate 59 L 59 L 59 L Respiratory Rate 14 Blood Pressure 97/55 L 97/55 L Pulse Oximetry Oxygen Delivery Fraction of Inspired Oxygen 10/09/24 18:00 10/09/24 18:00 10/09/24 20:00 Temperature Pulse Rate 59 L 58 L 55 L Respiratory Rate 14 14 Blood Pressure 97/55 L Pulse Oximetry 98 Oxygen Delivery Fraction of Inspired Oxygen 10/09/24 20:00 10/09/24 20:00 10/09/24 20:00 Temperature Pulse Rate 55 L 55 L 55 L Respiratory Rate 14 Blood Pressure 118/53 L 118/53 L Pulse Oximetry Oxygen Delivery Fraction of Inspired Oxygen 10/09/24 20:00 10/09/24 20:00 10/09/24 20:00 Temperature Pulse Rate 55 L 58 L Respiratory Rate 14 Blood Pressure 118/53 L Pulse Oximetry 99 Oxygen Delivery Fraction of Inspired Oxygen 30 10/09/24 20:00 10/09/24 20:22 10/09/24 20:22 Temperature Pulse Rate 57 L 59 L 59 L Respiratory Rate 14 14 Blood Pressure 109/68 Pulse Oximetry 97 99 Oxygen Delivery Mechanical Ventilation Fraction of Inspired Oxygen 21 10/09/24 20:30 10/09/24 20:32 10/09/24 21:08 Temperature Pulse Rate 55 L 59 L 60 Respiratory Rate 14 14 17 Blood Pressure Pulse Oximetry 99 100 Oxygen Delivery Mechanical Ventilation Fraction of Inspired Oxygen 30 10/09/24 21:18 10/09/24 22:00 10/09/24 22:00 Temperature Pulse Rate 59 L 55 L 55 L Respiratory Rate 16 Blood Pressure 113/52 L 126/57 L Pulse Oximetry Oxygen Delivery Fraction of Inspired Oxygen 10/09/24 22:00 10/09/24 22:00 10/09/24 22:00 Temperature Pulse Rate 55 L 55 L 55 L Respiratory Rate 16 Blood Pressure 126/57 L 126/57 L Pulse Oximetry Oxygen Delivery Fraction of Inspired Oxygen 10/09/24 22:00 10/09/24 22:00 10/09/24 22:20 Temperature 97.6 F Pulse Rate 55 L 55 L 74 Respiratory Rate 16 17 Blood Pressure 126/57 L Pulse Oximetry 98 Oxygen Delivery Fraction of Inspired Oxygen 10/09/24 22:42 10/09/24 22:45 10/09/24 23:00 Temperature Pulse Rate 71 59 L 59 L Respiratory Rate 0 L Blood Pressure 132/61 126/73 129/58 L Pulse Oximetry 95 Oxygen Delivery Fraction of Inspired Oxygen 10/09/24 23:00 10/09/24 23:10 10/09/24 23:26 Temperature Pulse Rate 61 61 55 L Respiratory Rate 15 Blood Pressure 123/56 L 128/59 L Pulse Oximetry Oxygen Delivery Fraction of Inspired Oxygen 10/09/24 23:35 10/10/24 00:00 10/10/24 00:00 Temperature Pulse Rate 56 L 63 63 Respiratory Rate Blood Pressure 117/56 L 117/56 L Pulse Oximetry 99 Oxygen Delivery Mechanical Ventilation Fraction of Inspired Oxygen 21 10/10/24 00:00 10/10/24 00:00 10/10/24 00:00 Temperature Pulse Rate 63 63 Respiratory Rate 14 Blood Pressure 117/56 L Pulse Oximetry Oxygen Delivery Fraction of Inspired Oxygen 30 10/10/24 00:00 10/10/24 00:00 10/10/24 00:00 Temperature Pulse Rate 63 59 L 59 L Respiratory Rate 14 14 Blood Pressure 118/56 L Pulse Oximetry 97 97 Oxygen Delivery Mechanical Ventilation Fraction of Inspired Oxygen 30 10/10/24 00:07 10/10/24 00:21 10/10/24 01:00 Temperature Pulse Rate 63 61 61 Respiratory Rate 14 Blood Pressure 119/56 L 122/57 L Pulse Oximetry Oxygen Delivery Fraction of Inspired Oxygen 10/10/24 01:37 10/10/24 01:37 10/10/24 01:45 Temperature Pulse Rate 63 63 59 L Respiratory Rate 14 Blood Pressure 114/55 L Pulse Oximetry 97 Oxygen Delivery Mechanical Ventilation Fraction of Inspired Oxygen 21 10/10/24 01:45 10/10/24 01:45 10/10/24 01:45 Temperature Pulse Rate 59 L 59 L 59 L Respiratory Rate 14 14 Blood Pressure 114/55 L Pulse Oximetry Oxygen Delivery Fraction of Inspired Oxygen 10/10/24 01:47 10/10/24 03:00 10/10/24 03:00 Temperature 97.4 F L Pulse Rate 63 58 L Respiratory Rate 14 Blood Pressure Pulse Oximetry Oxygen Delivery Fraction of Inspired Oxygen 10/10/24 03:00 10/10/24 04:00 10/10/24 04:00 Temperature Pulse Rate 58 L 59 L Respiratory Rate 14 Blood Pressure 111/54 L 105/51 L Pulse Oximetry 95 Oxygen Delivery Fraction of Inspired Oxygen 30 10/10/24 04:00 10/10/24 04:03 10/10/24 04:04 Temperature Pulse Rate 58 L 59 L 59 L Respiratory Rate Blood Pressure 105/51 L 105/51 L Pulse Oximetry Oxygen Delivery Fraction of Inspired Oxygen 10/10/24 04:05 10/10/24 04:06 10/10/24 04:07 Temperature Pulse Rate 59 L 59 L 59 L Respiratory Rate 14 14 Blood Pressure 105/51 L Pulse Oximetry Oxygen Delivery Fraction of Inspired Oxygen 10/10/24 04:50 10/10/24 04:51 10/10/24 04:59 Temperature Pulse Rate 57 L 60 63 Respiratory Rate 14 14 Blood Pressure Pulse Oximetry 97 Oxygen Delivery Mechanical Ventilation Fraction of Inspired Oxygen 21 10/10/24 05:00 10/10/24 05:15 10/10/24 05:16 Temperature Pulse Rate 60 59 L 62 Respiratory Rate 14 14 Blood Pressure 106/53 L Pulse Oximetry 95 Oxygen Delivery Mechanical Ventilation Fraction of Inspired Oxygen 30 10/10/24 06:00 10/10/24 06:00 10/10/24 06:00 Temperature 97.4 F L Pulse Rate 60 60 57 L Respiratory Rate 14 Blood Pressure 92/50 L 111/56 L Pulse Oximetry 96 Oxygen Delivery Fraction of Inspired Oxygen 10/10/24 06:00 10/10/24 06:00 10/10/24 06:00 Temperature Pulse Rate 57 L 57 L 57 L Respiratory Rate 14 14 Blood Pressure 111/56 L Pulse Oximetry Oxygen Delivery Fraction of Inspired Oxygen 10/10/24 06:27 10/10/24 06:30 10/10/24 06:57 Temperature Pulse Rate 59 L 60 58 L Respiratory Rate 14 Blood Pressure 110/57 L 111/57 L Pulse Oximetry Oxygen Delivery Fraction of Inspired Oxygen 10/10/24 06:57 10/10/24 06:59 10/10/24 07:58 Temperature 98.3 F Pulse Rate 58 L 57 L 65 Respiratory Rate 14 Blood Pressure 111/57 L 111/55 L 104/68 Pulse Oximetry 97 Oxygen Delivery Fraction of Inspired Oxygen 10/10/24 08:00 10/10/24 08:00 10/10/24 08:00 Temperature Pulse Rate 60 60 60 Respiratory Rate 14 Blood Pressure 107/55 L 107/55 L Pulse Oximetry Oxygen Delivery Fraction of Inspired Oxygen 10/10/24 08:00 10/10/24 08:00 10/10/24 08:10 Temperature Pulse Rate 60 60 64 Respiratory Rate 14 Blood Pressure 107/55 L Pulse Oximetry 97 Oxygen Delivery Mechanical Ventilation Fraction of Inspired Oxygen 30 10/10/24 08:10 10/10/24 08:28 Temperature 99.1 F Pulse Rate 64 Respiratory Rate 15 Blood Pressure Pulse Oximetry Oxygen Delivery Fraction of Inspired Oxygen Intake/Output Intake/Output: Intake & Output 10/07/24 10/08/24 10/09/24 10/11/24 23:59 23:59 23:59 00:59 Intake Total 1379.6 2539.6 551.7 Output Total 0 100 Balance 1379.6 2539.6 451.7 Meds/Results Medications: Active Medications Generic Name Dose Route Start Last Admin Trade Name Freq PRN Reason Stop Dose Admin Acetaminophen 650 mg 10/08/24 20:49 Acetaminophen 650 Mg Suppository RECTAL Q6H PRN Mild Pain (1-3) or Fever Albuterol/Ipratropium 3 ml 10/09/24 14:00 10/10/24 08:09 Ipratropium 0.5 Mg/Albuterol Sulfate 2.5 Mg Ampul.Neb 3 Ml INHALATION Not Given Q6HRT CESAR Allopurinol 100 mg 10/09/24 08:00 10/10/24 08:04 Allopurinol 100 Mg Tablet PO 100 mg DAILY@0800 CESAR Administration Apixaban 2.5 mg 10/09/24 09:00 10/10/24 08:04 Apixaban 2.5 Mg Tablet PO 2.5 mg Q12HR CESAR Administration Atorvastatin Calcium 10 mg 10/09/24 09:00 10/10/24 08:04 Atorvastatin 10 Mg Tablet PO 10 mg DAILY CESAR Administration Budesonide 0.5 mg 10/09/24 20:00 10/10/24 08:09 Budesonide Respule Neb 0.5 Mg/2 Ml Amp INHALATION 0.5 mg Q12HRT CESAR Administration Dextrose 12.5 gm 10/08/24 22:06 Dextrose 50% 25 Gm/50 Ml Syringe IV PUSH PRN PRN Hypoglycemia Protocol Glucagon 1 mg 10/08/24 22:06 Glucagon For Inj 1 Mg Vial IM PRN PRN Hypoglycemia Protocol Glucose 15 gm 10/08/24 22:06 Glucose Oral Gel 15 Gm Of Glucse In 37.5 Gm Tube PO PRN PRN Hypoglycemia Protocol Hydrocortisone Sodium Succinate 100 mg 10/09/24 14:30 10/10/24 05:04 Hydrocortisone Sodium Succinate 100 Mg/2 Ml Vial IV PUSH 100 mg Q8HR CESAR Administration Ceftriaxone Sodium 1 gm in 50 mls @ 100 mls/hr 10/09/24 12:00 10/09/24 12:05 Rocephin 1 Gm/Ns 50 Ml IVPB Infused Q24H CESAR Infusion Azithromycin 500 mg in 250 mls @ 250 mls/hr 10/09/24 12:00 10/09/24 12:35 Zithromax IVPB Infused Q24H CESAR Infusion Dextrose 1,000 mls @ 100 mls/hr 10/08/24 22:06 Dextrose 5% 1,000 Ml IVPB PRN PRN Hypoglycemia Protocol Vasopressin 100 units/ 100 mls @ 1.2 mls/hr 10/08/24 22:45 10/10/24 08:00 Dextrose IV CONT 0.02 units/min .Q72H CESAR 1.2 mls/hr Titration Protocol 0.02 UNITS/MIN Epinephrine HCl 4 mg/ Dextrose 254 mls @ 0 mls/hr 10/09/24 19:20 10/10/24 08:00 IV CONT 0 mcg/min .Q0M CESAR 0 mls/hr Titration Protocol 0 MCG/MIN Norepinephrine Bitartrate 16 250 mls @ 27.188 mls/hr 10/09/24 19:25 10/10/24 08:00 mg/ Dextrose IV CONT 29 mcg/min .Q9H12M CESAR 27.19 mls/hr Titration Protocol 29 MCG/MIN Fentanyl Citrate 2,500 mcg in 250 mls @ 7.5 mls/hr 10/10/24 00:10 10/10/24 08:00 Fentanyl 2,500 Mcg/Ns 250 Ml IV CONT 75 mcg/hr .[id number] CESAR 7.5 mls/hr Titration Protocol 75 MCG/HR Midazolam HCl 100 mg in 100 mls @ 2 mls/hr 10/10/24 00:10 10/10/24 08:00 Versed 100 Mg/Ns 100 Ml IV CONT 2 mg/hr .Q50H CESAR 2 mls/hr Titration Protocol 2 MG/HR Insulin Aspart 3 - 6 units 10/09/24 00:00 10/10/24 06:29 Insulin Aspart (*Bkc) 100 Units/Ml SUB-Q 3 units Q6HR CESAR Administration Protocol Multi-Ingred Cream/Lotion/Oil/Oint 1 applic 10/10/24 09:00 Mineral Oil/White Petrolatum Ointment EACH EYE Q12HR CESAR Mupirocin 1 applic 10/09/24 09:00 10/10/24 08:06 Mupirocin 2% Oint 22 Gm Tube EACH NARE 1 applic Q12HR CESAR Administration Oseltamivir Phosphate 30 mg 10/11/24 21:00 10/09/24 21:00 Oseltamivir Phosphate 30 Mg Capsule PO 10/12/24 21:01 Not Given [id number] CESAR Pantoprazole Sodium 40 mg 10/09/24 13:45 10/10/24 08:03 Pantoprazole Sodium Iv 40 Mg Vial IV PUSH 40 mg QAM CESAR Administration Fluticasone/Salmeterol 2 puff 10/09/24 08:00 10/09/24 09:26 Fluticasone/Salmeterol 115-21 Mcg Inhaler 1 Puff INHALATION Not Given Q12HRT CESAR Sevelamer Carbonate 1,600 mg 10/09/24 08:00 10/10/24 08:03 Sevelamer Carbonate 800 Mg Tablet PO 1,600 mg TIDWM CESAR Administration Sodium Chloride 10 ml 10/09/24 14:00 10/10/24 05:06 Central Line Flush IV PUSH 10 ml Q8HR CESAR Administration Sodium Chloride 20 ml 10/09/24 06:24 Central Line Flush IV PUSH PRN PRN after blood draws Sodium Zirconium Cyclosilicate 10 gm 10/09/24 22:00 10/09/24 20:59 Sodium Zirconium Cyclosilicate 10 Gm Powd.Pack PO 10/11/24 21:59 10 gm TID@1000,1500,2200 CESAR Administration Sodium Zirconium Cyclosilicate 10 gm 10/10/24 07:25 10/10/24 08:05 Sodium Zirconium Cyclosilicate 10 Gm Powd.Pack PO 10/11/24 09:01 10 gm DAILY CESAR Administration Vancomycin HCl 1 each 10/08/24 23:03 Vancomycin For Hemodialysis IVPB PRN PRN Vancomycin Protocol Radiology Results: ITS Impressions Pelvis X-Ray 10/08/24 22:22 IMPRESSION: As above. Head CT 10/08/24 23:18 IMPRESSION: No acute intracranial findings. Chest CT 10/08/24 23:27 IMPRESSION: 1. Interstitial thickening in the lower lobes which may indicate pneumonitis. Edema is less likely. 2. Cardiomegaly. 3. Cholelithiasis 4. Splenic cysts unchanged. Chest X-Ray 10/10/24 06:37 Impression: Probable right upper lobe and left lower lobe airspace disease. Correlate for bilateral pneumonia versus possibly pulmonary edema. Central congestive change. Support tubes, as above. Labs Labs: Laboratory Results - last 24 hr 10/09/24 10/09/24 10/09/24 05:20 09:34 11:11 WBC RBC Hgb Hct MCV MCH MCHC RDW Plt Count MPV Immature Gran % (Auto) Neut % (Auto) Lymph % (Auto) Pickett % (Auto) Eos % (Auto) Baso % (Auto) Lymph # (Auto) [place]ett # (Auto) Eos # (Auto) Baso # (Auto) Abs Immat Gran (auto) Absolute Neuts (auto) Absolute Nucleated RBC Total Counted Neutrophils % (Manual) Band Neutrophils % Lymphocytes % (Manual) Monocytes % (Manual) Nucleated RBC % Abs Neuts (Manual) Abs Lymphs (Manual) Abs Monocytes (Manual) Platelet Estimate % Immature Plt Fraction Schistocytes PT INR APTT Puncture Site ABG pH ABG pCO2 ABG pO2 ABG PO2/FiO2 Ratio ABG HCO3 ABG O2 Saturation ABG O2 Content ABG Base Excess A-a Gradient Oxyhemoglobin Carboxyhemoglobin Methemoglobin Reduced Hemoglobin Total Hemoglobin O2 Delivery Device O2 Liters/Min Minute Volume Vent Rate Vent Mode FiO2 Tidal Volume PEEP Peak Inspir Pressure Pressure Support Sodium Potassium Chloride Carbon Dioxide Anion Gap BUN Creatinine Estim Creat Clear Calc Estimated GFR Glucose POC Capillary Glucose 220 H Lactic Acid 2.5 H Calcium Phosphorus Magnesium Total Bilirubin AST ALT Alkaline Phosphatase Total Protein Albumin Nasal MRSA (PCR) Detected A* Random Vancomycin 10/09/24 10/09/24 10/09/24 18:30 19:02 23:07 WBC RBC Hgb Hct MCV MCH MCHC RDW Plt Count MPV Immature Gran % (Auto) Neut % (Auto) Lymph % (Auto) Pickett % (Auto) Eos % (Auto) Baso % (Auto) Lymph # (Auto) Pickett # (Auto) Eos # (Auto) Baso # (Auto) Abs Immat Gran (auto) Absolute Neuts (auto) Absolute Nucleated RBC Total Counted Neutrophils % (Manual) Band Neutrophils % Lymphocytes % (Manual) Monocytes % (Manual) Nucleated RBC % Abs Neuts (Manual) Abs Lymphs (Manual) Abs Monocytes (Manual) Platelet Estimate % Immature Plt Fraction Schistocytes PT INR APTT Puncture Site ABG pH ABG pCO2 ABG pO2 ABG PO2/FiO2 Ratio ABG HCO3 ABG O2 Saturation ABG O2 Content ABG Base Excess A-a Gradient Oxyhemoglobin Carboxyhemoglobin Methemoglobin Reduced Hemoglobin Total Hemoglobin O2 Delivery Device O2 Liters/Min Minute Volume Vent Rate Vent Mode FiO2 Tidal Volume PEEP Peak Inspir Pressure Pressure Support Sodium Potassium Chloride Carbon Dioxide Anion Gap BUN Creatinine Estim Creat Clear Calc Estimated GFR Glucose POC Capillary Glucose 182 H Lactic Acid 2.9 H 3.1 H Calcium Phosphorus Magnesium Total Bilirubin AST ALT Alkaline Phosphatase Total Protein Albumin Nasal MRSA (PCR) Random Vancomycin 14.5 10/09/24 10/10/24 10/10/24 23:57 04:55 04:59 WBC 17.8 H RBC 4.49 L Hgb 14.1 Hct 43.9 MCV 97.8 MCH 31.4 MCHC 32.1 RDW 16.3 H Plt Count 86 L MPV 12.4 H Immature Gran % (Auto) Not Reportable Neut % (Auto) Not Reportable Lymph % (Auto) Not Reportable Pickett % (Auto) Not Reportable Eos % (Auto) Not Reportable Baso % (Auto) Not Reportable Lymph # (Auto) Not Reportable Pickett # (Auto) Not Reportable Eos # (Auto) Not Reportable Baso # (Auto) Not Reportable Abs Immat Gran (auto) Not Reportable Absolute Neuts (auto) Not Reportable Absolute Nucleated RBC Not Reportable Total Counted 100 Neutrophils % (Manual) 91 H Band Neutrophils % 6 Lymphocytes % (Manual) 2 L Monocytes % (Manual) 1 L Nucleated RBC % Not Reportable Abs Neuts (Manual) 17.26 H Abs Lymphs (Manual) 0.35 L Abs Monocytes (Manual) 0.17 Platelet Estimate Decreased % Immature Plt Fraction 9.5 Schistocytes None seen PT 25.0 H INR 2.2 APTT 34.0 Puncture Site Artline ABG pH 7.383 ABG pCO2 38.1 ABG pO2 67.0 L ABG PO2/FiO2 Ratio 2.23 ABG HCO3 22.2 ABG O2 Saturation 93.2 L ABG O2 Content 17.1 ABG Base Excess -2.5 A-a Gradient 102.1 Oxyhemoglobin 90.5 Carboxyhemoglobin 0.9 Methemoglobin 0.3 Reduced Hemoglobin 8.3 H Total Hemoglobin 13.4 O2 Delivery Device Ventilator O2 Liters/Min Not Reportable Minute Volume Not Reportable Vent Rate 14 Vent Mode Cmv FiO2 30 Tidal Volume 500 PEEP 5 Peak Inspir Pressure Not Reportable Pressure Support Not Reportable Sodium 134 L Potassium 5.3 H Chloride 91 L Carbon Dioxide 27 Anion Gap 16 H BUN 43 H D Creatinine 5.14 H Estim Creat Clear Calc 10 Estimated GFR 11 L Glucose 234 H POC Capillary Glucose 261 H Lactic Acid 2.6 H Calcium 6.6 L Phosphorus 4.6 H Magnesium 2.1 Total Bilirubin 2.2 H AST 32 ALT 16 Alkaline Phosphatase 75 Total Protein 7.0 Albumin 3.8 Nasal MRSA (PCR) Random Vancomycin 10/10/24 06:27 WBC RBC Hgb Hct MCV MCH MCHC RDW Plt Count MPV Immature Gran % (Auto) Neut % (Auto) Lymph % (Auto) Pickett % (Auto) Eos % (Auto) Baso % (Auto) Lymph # (Auto) Pickett # (Auto) Eos # (Auto) Baso # (Auto) Abs Immat Gran (auto) Absolute Neuts (auto) Absolute Nucleated RBC Total Counted Neutrophils % (Manual) Band Neutrophils % Lymphocytes % (Manual) Monocytes % (Manual) Nucleated RBC % Abs Neuts (Manual) Abs Lymphs (Manual) Abs Monocytes (Manual) Platelet Estimate % Immature Plt Fraction Schistocytes PT INR APTT Puncture Site ABG pH ABG pCO2 ABG pO2 ABG PO2/FiO2 Ratio ABG HCO3 ABG O2 Saturation ABG O2 Content ABG Base Excess A-a Gradient Oxyhemoglobin Carboxyhemoglobin Methemoglobin Reduced Hemoglobin Total Hemoglobin O2 Delivery Device O2 Liters/Min Minute Volume Vent Rate Vent Mode FiO2 Tidal Volume PEEP Peak Inspir Pressure Pressure Support Sodium Potassium Chloride Carbon Dioxide Anion Gap BUN Creatinine Estim Creat Clear Calc Estimated GFR Glucose POC Capillary Glucose 233 H Lactic Acid Calcium Phosphorus Magnesium Total Bilirubin AST ALT Alkaline Phosphatase Total Protein Albumin Nasal MRSA (PCR) Random Vancomycin Quality VTE Prophylaxis VTE prophylaxis: mechanical ordered
[2024-10-10] MEDS: MINERAL OIL/WHITE PETROLATUM OINTMENT 1 APPLIC EACH EYE ×2 (10:00→20:28)
--- NOTE | 2024-10-10 11:24 | P.CONNP_ITS ---
Assessment and Plan Assessment and plan (1) End-stage renal disease (ESRD): Code(s): N18.6 - End stage renal disease Status: Chronic Assessment and Plan: * HD tomorrow * continue Fri/Fri/Friday dialysis schedule next week while hospitalized * follow electrolytes, volume status, and clearance (2) Septic shock: Code(s): A41.9 - Sepsis, unspecified organism; R65.21 - Severe sepsis with septic shock Status: Acute Assessment and Plan: * as noted on presentation - AMS + acute on chronic hypotension + lactic acidosis * complicated by chronic hypotension at baseline * presumed to be secondary to bacteremia, pneumonia and influenza * culture data noted: * blood cultures (on 10/08) wtih Streptococcus mitis * blood cultures (on 10/10) pending * s/p IVFs and IV albumin for volume expansion * requiring vasopressor therapy to maintain MAP/blood pressure * wean as tolerated * stress dose steroids * follow hemodynamics (3) Acute respiratory failure: Code(s): J96.00 - Acute respiratory failure, unspecified whether with hypoxia or hypercapnia Status: Acute Assessment and Plan: * multifactorial: * pneumonia * altered mental status * need for airway protection * fluid * intubated on 10/08 in ER * on bronchodilators * fluid removal with dialysis as tolerated (4) Bacteremia: Code(s): R78.81 - Bacteremia Status: Acute Assessment and Plan: * 10/08 blood cultures with Streptococcus mitis * follow repeat cultures * on antibiotics * see #2 (5) Influenza A: Code(s): J10.1 - Influenza due to other identified influenza virus with other respiratory manifestations Status: Acute Assessment and Plan: * as noted by testing in ER * on Tamiflu (renally dosed) * respiratory isolation (6) Pneumonia: Code(s): J18.9 - Pneumonia, unspecified organism Status: Acute Assessment and Plan: * suggested by recent imaging (CXR + CT scan) * on antibiotics (7) Altered mental status: Code(s): R41.82 - Altered mental status, unspecified Status: Acute Assessment and Plan: * noted in ER prior to intubatnio * presumably due to acute illness (infection/sepsis/shock...etc) * negative head CT * reassess once extubated (8) Anemia: Qualifiers: Anemia type: unspecified type Qualified Code(s): D64.9 - Anemia, unspecified Code(s): D64.9 - Anemia, unspecified Status: Chronic Assessment and Plan: * due to ESRD * hold Retacrit since Hgb > 10 * follow trend of H/H (9) Diabetes: Qualifiers: Diabetes mellitus type: type 2 Diabetes mellitus longterm insulin use: without longterm use Diabetes mellitus complication status: with kidney complications Diabetes mellitus complication detail: with chronic kidney disease Chronic kidney disease stage: on chronic dialysis Qualified Code(s): E 11.22 - Type 2 diabetes mellitus with diabetic chronic kidney disease; N18.6 - End stage renal disease; Z99.2 - Dependence on renal dialysis Code(s): E11.9 - Type 2 diabetes mellitus without complications Status: Chronic Assessment and Plan: * follow accu-cheks * glycemic control per hospitalist/resident services supervisor Long extensive discussion but disease greater than 20 minutes) with the patient's and family at bedside regarding his multiple medical issues and problems at this time including septic shock, bacteremia, acute respiratory failure, along with his known end-stage renal disease. I reviewed current interventions to date treating his medical issues with the hope for clinical improvement with ongoing medical therapy. She appeared to voice understanding. I will continue to follow the patient with you while he remains hospitalized and make further recommendations as deemed necessary. Thank you for allowing me to participate in the care of this patient. L History of Present Illness Reason for Consult Consult date: 10/10/24 Reason for consult: end stage renal disease Chief Complaint Chief complaint: AMS, influenza, pna, sepsis History of Present Illness Narrative: All the information that I have obtained is from review of the electronic medical record, discussion with the physician/nurses involved in the patient's care, and my personal knowledge of the patient based on his outpatient dialysis treatments and previous hospitalizations as the patient is unable to provide any history as he is currently intubated and on mechanical ventilation. The patient is an 84-year-old male with a past medical history as outlined below who presented to [facility] Emergency Room with confusion/altered mental status. According to the patient's , the patient has not been feeling very well for last few weeks. He apparently has been having issues with generalized weakness, poor oral intake, acute on top of his chronic hypotension, and fluctuating mentation/confusion. She reports that there are times where she has seen him only to himself and not making any sense when she asked him who he was talking to or what he was saying. Associated symptoms included worsening shortness of breath along with a nonproductive cough. He did attend his dialysis treatment earlier on the day of admission and apparently tolerated this intervention without any issue. However, on his return home, his seem to think that his confusion was worse and hence his subsequent evaluation in the emergency room. Workup and evaluation emergency room demonstrated the patient to be more hypotensive than baseline with his systolic BP in the 70s (baseline blood pressure runs around high 80s to 90 systolic). He was given IV fluid resuscitation with approximately 1500 cc but this did not really improve his blood pressure and given his end-stage renal disease status, they did not want to push further IV fluids. A right femoral central line was attempted but the patient did not tolerate this and became somewhat combative and he was subsequently intubated for airway protection. Following central line placement, he was initiated on vasopressor therapy in an attempt to optimize his blood pressure. Routine blood test were significant for normal white blood cell count of 7.9 but with a significant bandemia, lactic acid of 2.9, and a chemistry with labs consistent with his known history of end-stage renal disease. Viral testing for RSV and COVID were negative but he was influenza A positive. Subsequent imaging demonstrated a CT scan of his head which was negative, a chest CT with pneumonitis, and a chest x-ray with atelectasis versus pneumonia. Given the concerns of sepsis, appropriate cultures were obtained and he was initiated on broad-spectrum IV antibiotics and he was subsequently admitted to the ICU for further evaluation and therapy. Since his admission to the ICU, he has remained on ventilatory support and repeat testing showed worsening leukocytosis, thrombocytopenia. He remains on vasopressor therapy in the form of Levophed and vasopressin and his blood cultures from 10/08 are already Streptococcus mitis. His labs earlier this morning showed mild hyperkalemia and this was treated with medical management. Renal consultation was requested due to his end stage renal disease. The patient is quite familiar to me as I take care of his outpatient dialysis needs. He normally dialyzes on a Friday, Friday, Friday dialysis schedule at [facility] under my care. His history with regard to kidney disease is somewhat complicated. In July of 2023 he was initiated on renal replacement therapy/dialysis for better control of his fluid status as he had evidence of diuretic resistance during his acute hospitalization at that time. His fluid and overall volume status improved on outpatient dialysis but then his last labs in late September 2023 demonstrated evidence of renal recovery. A subsequent 24 hour urine collection demonstrated that he had reasonable renal function as well as urine output so dialysis was discontinued. However, then, he was hospitalized again in December of 2023 for a similar presentation of fluid overload/anasarca resistant to IV diuretic therapy. He was once again reinstituted on renal replacement therapy/dialysis with the assumption that he requires dialysis to maintain his fluid status as diuretics alone are unable to maintain euvolemia. He has been dialysis dependent since that time but this has resulted in improved stability in his swelling/edema/fluid status. As already mentioned, he received a full dialysis treatment on Friday (10/08) prior to being sent to the ER for for his above complaints. Currently, at the time my visit, he does not appear to be any acute distress but is intubated/sedated and on ventilator support. Review of Systems 2 Review of Systems: As per HPI. [facility] Past Medical History Medical History Shingles Benign prostatic hyperplasia Vitamin D deficiency Secondary renal hyperparathyroidism Chronic anticoagulation Atrial fibrillation with slow ventricular response Pulmonary hypertension Congestive heart failure 07/2024: Hyperdynamic systolic function, estimated EF 70%, severely dilated right ventricle. Gout Sleep apnea intolerant of CPAP End-stage renal disease on hemodialysis Anemia of chronic disease Umbilical hernia Iron deficiency anemia B12 deficiency anemia Essential (primary) hypertension Mixed hyperlipidemia Type 2 diabetes mellitus with diabetic neuropathy Surgical History Surgical History Status post insertion of spinal cord stimulator History of cataract extraction with lens replacement History of bilateral knee arthroplasty Normal colonoscopy (~2007) Family History Family History Father Cerebrovascular accident Mother Hypertension Sibling Hypertension Other Kidney disease, chronic, end stage on dialysis Social History Social History Social History: Surrogate medical decision maker: Kathy Yanez, spouse. Code status: Full code. Smoking packs per day: 0.5 Smoking cigarettes per day: 10.0 Years smoked: 5 Smoking pack-years: 2.50 Smoking status: Former smoker Second hand tobacco smoke exposure: Yes Alcohol intake: never Substance use: never Substance use type: does not use Do You Feel Safe in your Home?: Yes Lack of Transportation: No Lack of Food: Never True Current Housing: I Have Housing Concerned About Future Housing: No Difficulty Paying Gas/Electric Bills: No Difficulty Paying for Meds: No Currently Unemployed: No Education: Bachelor's Degree Difficulty w/ Childcare or Family Care: No Living arrangements: with family Additional living arrangements comments: Lives with spouse of nearly 60 years. They have a son and daughter. Occupation/Education: retired Additional occupation/education comments: Retired from working with [employer]. Spiritual care concerns: No Meds Home Medications and Allergies Home Medications ?Medication ?Instructions ?Recorded ?Confirmed ?Type atorvastatin 10 mg tablet 10 mg PO DAILY #90 tabs 02/23/24 10/09/24 Rx apixaban 2.5 mg tablet (Eliquis) 2.5 mg PO Q12HR #180 tabs 03/12/24 10/09/24 Rx allopurinol 100 mg tablet 100 mg PO DAILY #90 tabs 03/31/24 10/09/24 Rx bumetanide 1 mg tablet 1 mg PO BID #60 tabs 06/16/24 10/09/24 Rx albuterol sulfate 90 mcg/actuation 2 puff inhalation Q6H PRN 07/12/24 10/09/24 History aerosol inhaler sob/wheezing acetaminophen 325 mg tablet 650 mg (2 x 325 mg) PO Q6H PRN 07/17/24 10/09/24 Rx Mild Pain (1-3) Or Fever #30 tabs fluticasone 250 mcg-salmeterol 50 1 inh inhalation Q12H 07/21/24 10/09/24 History mcg/dose blistr powdr for inhalation (Advair Diskus) tramadol 50 mg tablet 50 mg PO Q8H PRN pain #90 tabs 08/23/24 10/09/24 Rx midodrine 10 mg tablet 10 mg PO WITH DIALYSIS PRN 09/24/24 10/09/24 Rx hypotension with dialysis #12 tabs sevelamer carbonate 800 mg tablet 1,600 mg PO TIDWM 09/24/24 10/09/24 History (Renvela) benzonatate 100 mg capsule See Rx Instructions .Route 10/03/24 10/09/24 Rx .COMPLEX #60 caps Allergies Allergy/AdvReac Type Severity Reaction Status Date / Time No Known Allergies Allergy Verified 10/08/24 17:11 Vital Signs Vital Signs Temp Pulse Resp BP Pulse Ox O2 Del Method FiO2 10/10/24 11:00 62 110/59 L 10/10/24 10:50 58 L 95 Mechanical Ventilation 30 10/10/24 10:00 57 L 97/53 L 10/10/24 10:00 57 L 14 10/10/24 10:00 57 L 14 10/10/24 10:00 57 L 97/53 L 10/10/24 10:00 55 L 10/10/24 10:00 56 L 14 96/52 L 96 10/10/24 09:33 60 95/52 L 10/10/24 09:13 59 L 15 10/10/24 08:28 99.1 F 10/10/24 08:10 64 15 10/10/24 08:10 64 97 Mechanical Ventilation 30 10/10/24 08:00 30 10/10/24 08:00 63 10/10/24 08:00 97 Mechanical Ventilation 30 10/10/24 08:00 60 107/55 L 10/10/24 08:00 60 14 10/10/24 08:00 60 14 10/10/24 08:00 60 107/55 L 10/10/24 08:00 60 107/55 L 10/10/24 07:58 98.3 F 65 14 104/68 97 10/10/24 06:59 57 L 111/55 L 10/10/24 06:57 58 L 111/57 L 10/10/24 06:57 58 L 111/57 L 10/10/24 06:30 60 14 10/10/24 06:27 59 L 110/57 L 10/10/24 06:00 57 L 14 10/10/24 06:00 57 L 14 10/10/24 06:00 57 L 111/56 L 10/10/24 06:00 57 L 111/56 L 10/10/24 06:00 97.4 F L 60 14 92/50 L 96 10/10/24 06:00 60 10/10/24 05:16 62 14 10/10/24 05:15 59 L 106/53 L 10/10/24 05:00 60 14 95 Mechanical Ventilation 30 10/10/24 04:59 63 97 Mechanical Ventilation 10/10/24 04:51 60 14 10/10/24 04:50 57 L 14 10/10/24 04:07 59 L 14 10/10/24 04:06 59 L 14 10/10/24 04:05 59 L 105/51 L 10/10/24 04:04 59 L 105/51 L 10/10/24 04:03 59 L 105/51 L 10/10/24 04:00 58 L 10/10/24 04:00 59 L 14 105/51 L 95 10/10/24 04:00 30 10/10/24 03:00 58 L 111/54 L 10/10/24 03:00 97.4 F L 10/10/24 03:00 58 L 10/10/24 01:47 63 14 10/10/24 01:45 59 L 14 10/10/24 01:45 59 L 14 10/10/24 01:45 59 L 114/55 L 10/10/24 01:45 59 L 114/55 L 10/10/24 01:37 63 97 Mechanical Ventilation 10/10/24 01:37 63 14 10/10/24 01:00 61 122/57 L 10/10/24 00:21 61 119/56 L 10/10/24 00:07 63 14 10/10/24 00:00 59 L 14 118/56 L 97 10/10/24 00:00 59 L 10/10/24 00:00 63 14 97 Mechanical Ventilation 30 10/10/24 00:00 30 10/10/24 00:00 63 14 10/10/24 00:00 63 117/56 L 10/10/24 00:00 63 117/56 L 10/10/24 00:00 63 117/56 L 10/09/24 23:35 56 L 99 Mechanical Ventilation 10/09/24 23:26 55 L 128/59 L 10/09/24 23:10 61 123/56 L 10/09/24 23:00 61 15 10/09/24 23:00 59 L 129/58 L 10/09/24 22:45 59 L 0 L 126/73 95 10/09/24 22:42 71 132/61 10/09/24 22:20 74 17 10/09/24 22:00 97.6 F 55 L 16 126/57 L 98 10/09/24 22:00 55 L 10/09/24 22:00 55 L 126/57 L 10/09/24 22:00 55 L 126/57 L 10/09/24 22:00 55 L 16 10/09/24 22:00 55 L 16 10/09/24 22:00 55 L 126/57 L 10/09/24 21:18 59 L 113/52 L 10/09/24 21:08 60 17 100 10/09/24 20:32 59 L 14 10/09/24 20:30 55 L 14 99 Mechanical Ventilation 10/09/24 20:22 59 L 14 10/09/24 20:22 59 L 99 Mechanical Ventilation 10/09/24 20:00 57 L 14 109/68 97 10/09/24 20:00 58 L 10/09/24 20:00 55 L 14 118/53 L 99 10/09/24 20:00 30 10/09/24 20:00 55 L 118/53 L 10/09/24 20:00 55 L 118/53 L 10/09/24 20:00 55 L 14 10/09/24 20:00 55 L 14 10/09/24 18:00 58 L 10/09/24 18:00 59 L 14 97/55 L 98 10/09/24 18:00 59 L 97/55 L 10/09/24 18:00 59 L 14 10/09/24 18:00 59 L 97/55 L 10/09/24 18:00 60 14 10/09/24 16:40 57 L 14 10/09/24 16:40 57 L 100 Mechanical Ventilation 10/09/24 16:37 58 L 67/47 L Exam 2 Narrative: GENERAL APPEARANCE: elderly male intubated/sedated and on mechanical ventilation HEENT: normocephalic, atraumatic, normal conjunctiva and sclera, nares patient NECK: no lymphadenopathy, thyromegaly, or JVD MOUTH: normal lips, teeth, and gums; ETT in place CARDIOVASCULAR: IRRR, normal S1 and S2, no rub RESPIRATORY: coarse breath sounds ABDOMEN: soft, nontender, nondistended, hypoactive bowel sounds present EXTREMITIES: no evidence of cyanosis, clubbing, 1+ chronic edema NEUROLOGICAL: unable to assess Results Lab Results 10/12/24 04:23 10/12/24 04:23 Lab results: Most recent lab results ABG pH 7.383 (7.350-7.450) 10/10/24 04:55 ABG pCO2 38.1 mmHg (35.0-45.0) 10/10/24 04:55 ABG pO2 67.0 mmHg (80.0-100.0) L 10/10/24 04:55 ABG HCO3 22.2 mEq/l (22.0-26.0) 10/10/24 04:55 ABG O2 Saturation 93.2 % (95.0-100.0) L 10/10/24 04:55 Calcium 6.8 mg/dL (8.4-10.2) L 10/10/24 13:11 Phosphorus 4.6 mg/dL (2.5-4.5) H 10/10/24 04:59 Magnesium 2.1 mg/dL (1.6-2.3) 10/10/24 04:59
[2024-10-10] MEDS: AZITHROMYCIN 500 MG/NS 250 ML 500 MG/250 ML BAG 250 MG IVPB (11:57)
[2024-10-10 12:39] LABS: Glucose Point of Care 202 mg/dl (65-105)
[2024-10-10 13:29] LABS: Anion Gap 16 mmol/L (4-12); Blood Urea Nitrogen 48 mg/dL (9-20); Calcium 6.8 mg/dL (8.4-10.2); Carbon Dioxide 27 mmol/L (22-30); Chloride 90 mmol/L (98-107); Estimated CRCL calculation 10 ml/min; Estimated Glomerular Filt Rate 10; Glucose 237 mg/dL (65-110); Potassium 5.4 mmol/L (3.4-5.0); Sodium 133 mmol/L (137-145)
--- NOTE | 2024-10-10 14:49 | P.PNIM_ITS ---
Progress Note: A&P Assessment and Plan (1) Sepsis: Code(s): A41.9 - Sepsis, unspecified organism Status: Acute (2) Influenza: Code(s): J11.1 - Influenza due to unidentified influenza virus with other respiratory manifestations Status: Acute (3) Pneumonia: Code(s): J18.9 - Pneumonia, unspecified organism Status: Acute (4) Altered mental status: Code(s): R41.82 - Altered mental status, unspecified Status: Acute (5) End-stage renal disease on hemodialysis: Code(s): N18.6 - End stage renal disease; Z99.2 - Dependence on renal dialysis Status: Acute (6) Type 2 diabetes mellitus with diabetic neuropathy: Qualifiers: Diabetes mellitus medical terminologist insulin use: without medical terminologist use Qualified Code(s): E11.40 - Type 2 diabetes mellitus with diabetic neuropathy, unspecified Code(s): E11.40 - Type 2 diabetes mellitus with diabetic neuropathy, unspecified Status: Chronic Plan The patient presented to the emergency department for evaluation of altered mental status following dialysis as detailed in HPI. Labs, imaging, EKG, and all reports were personally reviewed. He meets sepsis criteria with hypotension, low-grade fever, bandemia, lactic acidosis, and altered mental status in the setting of infection. He remained hypotensive following a 1.5 L normal saline bolus (more fluids were not given due to his end-stage renal disease) and he has been started on vasopressors with a target MAP of at least 65. He tested positive for influenza A and chest x-ray shows findings of possible pneumonia for which he has been started on oseltamivir and azithromycin, ceftriaxone, and vancomycin. MRSA nasal screen pending. Sputum culture ordered. There were no reports of obvious focal deficits on exam in the ED and his altered mental status may very well be related to sepsis, influenza, and hypotension. Brain CT was without acute findings. Initiate sliding scale insulin, Accu-Cheks, and hypoglycemic protocol. He will be due for dialysis on Friday. His medications will be reviewed and resumed as appropriate. Findings and treatment plan were discussed with the patient's . Questions were solicited and answered to satisfaction. The patient's medical management will be taken over by the hospitalist team in a.m. patient presented with hypotension and confusion, patient was intubated and on ventilator, patient is receiving IVF and on pressor, discussed with freight [employer] patient blood pressure is improving and his off pressors, patient is found to have Influenza A treated with Tamiflu patient son is present in the room gave updates, patient is seen by freight [employer] and further recommendation to follow. Subjective Date/time seen: 10/10/24 14:49 Interval history: Altered mental status. H&P-Narrative: This is an 84-year-old male with end-stage renal disease on hemodialysis, congestive heart failure, pulmonary hypertension, type 2 diabetes mellitus, atrial fibrillation on anticoagulation, hypertension, chronic anemia, and other comorbidities who presented to the emergency department via EMS for evaluation of altered mental status after dialysis. He was intubated in the emergency department and the following history is obtained from the patient's as well as review of his electronic medical records. He went to dialysis at 05:00 and completed a session. His that time he has reportedly been increasingly confused, mumbling to himself and not making any sense. In the ED his only complaint was that of not feeling well but he did not elaborate. reports that he had a bit of a cough yesterday which she believes was nonproductive. There were no reports of fever, cold and flu symptoms, vomiting, or diarrhea. In the ED: Vital signs on arrival include a temperature of 99.8?, blood pressure 72/37, pulse 87, respiratory 22, SpO2 95%. Labs were significant for WBC count of 7.9 with 10 bands noted on manual differential, sodium 136, chloride 92, carbon dioxide 34, BUN 26, creatinine 3.68, lactic acid 2.9, calcium 7.9, total bilirubin 2.1. He tested positive for influenza A. Chest x-ray showed bilateral social pneumonitis versus pulmonary edema. Blood pressure continue to drift down words and he was given a 1500 mL bolus of normal saline without much improvement. The decision was made to put in the central line and start the patient on vasopressors however the patient had difficulties lying still for central line placement and he was sedated and eventually intubated and he is being admitted to the ICU in this setting with hypotension, influenza, pneumonia, and altered mental status. patient presented with hypotension and confusion, patient was intubated and on ventilator, patient is receiving IVF and on pressor, discussed with freight [employer] patient blood pressure is improving and his off pressors, patient is found to have Influenza A treated with Tamiflu patient son is present in the room gave updates, patient is seen by freight [employer] and further recommendation to follow. Review of Systems Review of Systems: ROS unobtainable: Yes unobtainable due to endotracheal tube Exam Narrative: Patient is comfortable, NAD HEENT: ET tube in place LUNGS:CTA HEART: RR S1S2 ABD: BS+, Soft and nontender Lower extremities: no edema SKIN: nonjaundiced Neuro: On vent and sedated Objective Data Vital Signs Vital Signs: Vital Signs - 24 hr 10/09/24 13:57 10/09/24 13:57 10/09/24 14:00 Temperature Pulse Rate 60 60 56 L Respiratory Rate 14 14 Blood Pressure Pulse Oximetry 94 Oxygen Delivery Mechanical Ventilation Fraction of Inspired Oxygen 21 10/09/24 14:00 10/09/24 14:00 10/09/24 14:00 Temperature Pulse Rate 57 L 57 L 57 L Respiratory Rate 14 14 Blood Pressure 87/60 L 87/60 L Pulse Oximetry 94 Oxygen Delivery Fraction of Inspired Oxygen 10/09/24 14:00 10/09/24 14:10 10/09/24 14:34 Temperature Pulse Rate 57 L 60 Respiratory Rate 14 Blood Pressure Pulse Oximetry Oxygen Delivery Fraction of Inspired Oxygen 30 10/09/24 14:42 10/09/24 14:58 10/09/24 15:53 Temperature Pulse Rate 49 L 57 L 54 L Respiratory Rate Blood Pressure 87/57 L 93/60 L 80/51 L Pulse Oximetry Oxygen Delivery Fraction of Inspired Oxygen 10/09/24 15:55 10/09/24 15:55 10/09/24 16:00 Temperature Pulse Rate 52 L 52 L 55 L Respiratory Rate 14 14 Blood Pressure Pulse Oximetry 98 Oxygen Delivery Mechanical Ventilation Fraction of Inspired Oxygen 21 10/09/24 16:00 10/09/24 16:00 10/09/24 16:00 Temperature 36.4 C L Pulse Rate 58 L 53 L 53 L Respiratory Rate 14 Blood Pressure 102/68 102/68 102/68 Pulse Oximetry 100 Oxygen Delivery Fraction of Inspired Oxygen 10/09/24 16:00 10/09/24 16:00 10/09/24 16:00 Temperature Pulse Rate 58 L Respiratory Rate 14 Blood Pressure Pulse Oximetry 98 Oxygen Delivery Mechanical Ventilation Fraction of Inspired Oxygen 30 30 10/09/24 16:22 10/09/24 16:37 10/09/24 16:40 Temperature Pulse Rate 54 L 58 L 57 L Respiratory Rate Blood Pressure 80/51 L 67/47 L Pulse Oximetry 100 Oxygen Delivery Mechanical Ventilation Fraction of Inspired Oxygen 21 10/09/24 16:40 10/09/24 18:00 10/09/24 18:00 Temperature Pulse Rate 57 L 60 59 L Respiratory Rate 14 14 Blood Pressure 97/55 L Pulse Oximetry Oxygen Delivery Fraction of Inspired Oxygen 10/09/24 18:00 10/09/24 18:00 10/09/24 18:00 Temperature Pulse Rate 59 L 59 L 59 L Respiratory Rate 14 14 Blood Pressure 97/55 L 97/55 L Pulse Oximetry 98 Oxygen Delivery Fraction of Inspired Oxygen 10/09/24 18:00 10/09/24 20:00 10/09/24 20:00 Temperature Pulse Rate 58 L 55 L 55 L Respiratory Rate 14 14 Blood Pressure Pulse Oximetry Oxygen Delivery Fraction of Inspired Oxygen 10/09/24 20:00 10/09/24 20:00 10/09/24 20:00 Temperature Pulse Rate 55 L 55 L Respiratory Rate Blood Pressure 118/53 L 118/53 L Pulse Oximetry Oxygen Delivery Fraction of Inspired Oxygen 30 10/09/24 20:00 10/09/24 20:00 10/09/24 20:00 Temperature Pulse Rate 55 L 58 L 57 L Respiratory Rate 14 14 Blood Pressure 118/53 L 109/68 Pulse Oximetry 99 97 Oxygen Delivery Fraction of Inspired Oxygen 10/09/24 20:22 10/09/24 20:22 10/09/24 20:30 Temperature Pulse Rate 59 L 59 L 55 L Respiratory Rate 14 14 Blood Pressure Pulse Oximetry 99 99 Oxygen Delivery Mechanical Ventilation Mechanical Ventilation Fraction of Inspired Oxygen 21 30 10/09/24 20:32 10/09/24 21:08 10/09/24 21:18 Temperature Pulse Rate 59 L 60 59 L Respiratory Rate 14 17 Blood Pressure 113/52 L Pulse Oximetry 100 Oxygen Delivery Fraction of Inspired Oxygen 10/09/24 22:00 10/09/24 22:00 10/09/24 22:00 Temperature Pulse Rate 55 L 55 L 55 L Respiratory Rate 16 16 Blood Pressure 126/57 L Pulse Oximetry Oxygen Delivery Fraction of Inspired Oxygen 10/09/24 22:00 10/09/24 22:00 10/09/24 22:00 Temperature Pulse Rate 55 L 55 L 55 L Respiratory Rate Blood Pressure 126/57 L 126/57 L Pulse Oximetry Oxygen Delivery Fraction of Inspired Oxygen 10/09/24 22:00 10/09/24 22:20 10/09/24 22:42 Temperature 36.4 C Pulse Rate 55 L 74 71 Respiratory Rate 16 17 Blood Pressure 126/57 L 132/61 Pulse Oximetry 98 Oxygen Delivery Fraction of Inspired Oxygen 10/09/24 22:45 10/09/24 23:00 10/09/24 23:00 Temperature Pulse Rate 59 L 59 L 61 Respiratory Rate 0 L 15 Blood Pressure 126/73 129/58 L Pulse Oximetry 95 Oxygen Delivery Fraction of Inspired Oxygen 10/09/24 23:10 10/09/24 23:26 10/09/24 23:35 Temperature Pulse Rate 61 55 L 56 L Respiratory Rate Blood Pressure 123/56 L 128/59 L Pulse Oximetry 99 Oxygen Delivery Mechanical Ventilation Fraction of Inspired Oxygen 21 10/10/24 00:00 10/10/24 00:00 10/10/24 00:00 Temperature Pulse Rate 63 63 63 Respiratory Rate Blood Pressure 117/56 L 117/56 L 117/56 L Pulse Oximetry Oxygen Delivery Fraction of Inspired Oxygen 10/10/24 00:00 10/10/24 00:00 10/10/24 00:00 Temperature Pulse Rate 63 63 Respiratory Rate 14 14 Blood Pressure Pulse Oximetry 97 Oxygen Delivery Mechanical Ventilation Fraction of Inspired Oxygen 30 30 10/10/24 00:00 10/10/24 00:00 10/10/24 00:07 Temperature Pulse Rate 59 L 59 L 63 Respiratory Rate 14 14 Blood Pressure 118/56 L Pulse Oximetry 97 Oxygen Delivery Fraction of Inspired Oxygen 10/10/24 00:21 10/10/24 01:00 10/10/24 01:37 Temperature Pulse Rate 61 61 63 Respiratory Rate 14 Blood Pressure 119/56 L 122/57 L Pulse Oximetry Oxygen Delivery Fraction of Inspired Oxygen 10/10/24 01:37 10/10/24 01:45 10/10/24 01:45 Temperature Pulse Rate 63 59 L 59 L Respiratory Rate Blood Pressure 114/55 L 114/55 L Pulse Oximetry 97 Oxygen Delivery Mechanical Ventilation Fraction of Inspired Oxygen 21 10/10/24 01:45 10/10/24 01:45 10/10/24 01:47 Temperature Pulse Rate 59 L 59 L 63 Respiratory Rate 14 14 14 Blood Pressure Pulse Oximetry Oxygen Delivery Fraction of Inspired Oxygen 10/10/24 03:00 10/10/24 03:00 10/10/24 03:00 Temperature 36.3 C L Pulse Rate 58 L 58 L Respiratory Rate Blood Pressure 111/54 L Pulse Oximetry Oxygen Delivery Fraction of Inspired Oxygen 10/10/24 04:00 10/10/24 04:00 10/10/24 04:00 Temperature Pulse Rate 59 L 58 L Respiratory Rate 14 Blood Pressure 105/51 L Pulse Oximetry 95 Oxygen Delivery Fraction of Inspired Oxygen 30 10/10/24 04:03 10/10/24 04:04 10/10/24 04:05 Temperature Pulse Rate 59 L 59 L 59 L Respiratory Rate Blood Pressure 105/51 L 105/51 L 105/51 L Pulse Oximetry Oxygen Delivery Fraction of Inspired Oxygen 10/10/24 04:06 10/10/24 04:07 10/10/24 04:50 Temperature Pulse Rate 59 L 59 L 57 L Respiratory Rate 14 14 14 Blood Pressure Pulse Oximetry Oxygen Delivery Fraction of Inspired Oxygen 10/10/24 04:51 10/10/24 04:59 10/10/24 05:00 Temperature Pulse Rate 60 63 60 Respiratory Rate 14 14 Blood Pressure Pulse Oximetry 97 95 Oxygen Delivery Mechanical Ventilation Mechanical Ventilation Fraction of Inspired Oxygen 21 30 10/10/24 05:15 10/10/24 05:16 10/10/24 06:00 Temperature Pulse Rate 59 L 62 60 Respiratory Rate 14 Blood Pressure 106/53 L Pulse Oximetry Oxygen Delivery Fraction of Inspired Oxygen 10/10/24 06:00 10/10/24 06:00 10/10/24 06:00 Temperature 36.3 C L Pulse Rate 60 57 L 57 L Respiratory Rate 14 Blood Pressure 92/50 L 111/56 L 111/56 L Pulse Oximetry 96 Oxygen Delivery Fraction of Inspired Oxygen 10/10/24 06:00 10/10/24 06:00 10/10/24 06:27 Temperature Pulse Rate 57 L 57 L 59 L Respiratory Rate 14 14 Blood Pressure 110/57 L Pulse Oximetry Oxygen Delivery Fraction of Inspired Oxygen 10/10/24 06:30 10/10/24 06:57 10/10/24 06:57 Temperature Pulse Rate 60 58 L 58 L Respiratory Rate 14 Blood Pressure 111/57 L 111/57 L Pulse Oximetry Oxygen Delivery Fraction of Inspired Oxygen 10/10/24 06:59 10/10/24 07:58 10/10/24 08:00 Temperature 36.8 C Pulse Rate 57 L 65 60 Respiratory Rate 14 Blood Pressure 111/55 L 104/68 107/55 L Pulse Oximetry 97 Oxygen Delivery Fraction of Inspired Oxygen 10/10/24 08:00 10/10/24 08:00 10/10/24 08:00 Temperature Pulse Rate 60 60 60 Respiratory Rate 14 14 Blood Pressure 107/55 L Pulse Oximetry Oxygen Delivery Fraction of Inspired Oxygen 10/10/24 08:00 10/10/24 08:00 10/10/24 08:00 Temperature Pulse Rate 60 63 Respiratory Rate Blood Pressure 107/55 L Pulse Oximetry 97 Oxygen Delivery Mechanical Ventilation Fraction of Inspired Oxygen 30 10/10/24 08:00 10/10/24 08:10 10/10/24 08:10 Temperature Pulse Rate 64 64 Respiratory Rate 15 Blood Pressure Pulse Oximetry 97 Oxygen Delivery Mechanical Ventilation Fraction of Inspired Oxygen 30 30 10/10/24 08:28 10/10/24 09:13 10/10/24 09:33 Temperature 37.3 C Pulse Rate 59 L 60 Respiratory Rate 15 Blood Pressure 95/52 L Pulse Oximetry Oxygen Delivery Fraction of Inspired Oxygen 10/10/24 10:00 10/10/24 10:00 10/10/24 10:00 Temperature Pulse Rate 56 L 55 L 57 L Respiratory Rate 14 Blood Pressure 96/52 L 97/53 L Pulse Oximetry 96 Oxygen Delivery Fraction of Inspired Oxygen 10/10/24 10:00 10/10/24 10:00 10/10/24 10:00 Temperature Pulse Rate 57 L 57 L 57 L Respiratory Rate 14 14 Blood Pressure 97/53 L Pulse Oximetry Oxygen Delivery Fraction of Inspired Oxygen 10/10/24 10:50 10/10/24 11:00 10/10/24 12:00 Temperature Pulse Rate 58 L 62 60 Respiratory Rate Blood Pressure 110/59 L 96/55 L Pulse Oximetry 95 Oxygen Delivery Mechanical Ventilation Fraction of Inspired Oxygen 30 10/10/24 12:00 10/10/24 12:00 10/10/24 12:00 Temperature Pulse Rate 62 62 62 Respiratory Rate 14 Blood Pressure 110/59 L 110/59 L Pulse Oximetry Oxygen Delivery Fraction of Inspired Oxygen 10/10/24 12:00 10/10/24 12:00 10/10/24 12:00 Temperature 37.2 C Pulse Rate 62 62 Respiratory Rate 14 14 Blood Pressure 110/59 L Pulse Oximetry 95 Oxygen Delivery Fraction of Inspired Oxygen 30 10/10/24 12:00 10/10/24 13:10 10/10/24 13:40 Temperature Pulse Rate 67 61 Respiratory Rate Blood Pressure 82/52 L Pulse Oximetry 95 95 Oxygen Delivery Mechanical Ventilation Mechanical Ventilation Fraction of Inspired Oxygen 30 30 10/10/24 13:40 10/10/24 13:48 10/10/24 14:00 Temperature Pulse Rate 61 55 L 64 Respiratory Rate 14 14 Blood Pressure 113/63 Pulse Oximetry Oxygen Delivery Fraction of Inspired Oxygen 10/10/24 14:00 10/10/24 14:00 10/10/24 14:00 Temperature Pulse Rate 64 64 64 Respiratory Rate 14 14 Blood Pressure 113/63 Pulse Oximetry Oxygen Delivery Fraction of Inspired Oxygen 10/10/24 14:00 10/10/24 14:30 Temperature Pulse Rate 64 58 L Respiratory Rate 14 Blood Pressure 113/63 108/53 L Pulse Oximetry 95 Oxygen Delivery Fraction of Inspired Oxygen Intake/Output Intake/Output: Intake & Output 10/07/24 10/08/24 10/09/24 10/11/24 23:59 23:59 23:59 00:59 Intake Total 1379.6 2539.6 1084.8 Output Total 0 100 Balance 1379.6 2539.6 984.8 Meds/Results Medications: Active Medications Generic Name Dose Route Start Last Admin Trade Name Freq PRN Reason Stop Dose Admin Acetaminophen 650 mg 10/08/24 20:49 Acetaminophen 650 Mg Suppository RECTAL Q6H PRN Mild Pain (1-3) or Fever Albuterol/Ipratropium 3 ml 10/09/24 14:00 10/10/24 13:38 Ipratropium 0.5 Mg/Albuterol Sulfate 2.5 Mg Ampul.Neb 3 Ml INHALATION 3 ml Q6HRT CESAR Administration Allopurinol 100 mg 10/09/24 08:00 10/10/24 08:04 Allopurinol 100 Mg Tablet PO 100 mg DAILY@0800 CESAR Administration Apixaban 2.5 mg 10/09/24 09:00 10/10/24 08:04 Apixaban 2.5 Mg Tablet PO 2.5 mg Q12HR CESAR Administration Atorvastatin Calcium 10 mg 10/09/24 09:00 10/10/24 08:04 Atorvastatin 10 Mg Tablet PO 10 mg DAILY CESAR Administration Budesonide 0.5 mg 10/09/24 20:00 10/10/24 08:09 Budesonide Respule Neb 0.5 Mg/2 Ml Amp INHALATION 0.5 mg Q12HRT CESAR Administration Dextrose 12.5 gm 10/08/24 22:06 Dextrose 50% 25 Gm/50 Ml Syringe IV PUSH PRN PRN Hypoglycemia Protocol Glucagon 1 mg 10/08/24 22:06 Glucagon For Inj 1 Mg Vial IM PRN PRN Hypoglycemia Protocol Glucose 15 gm 10/08/24 22:06 Glucose Oral Gel 15 Gm Of Glucse In 37.5 Gm Tube PO PRN PRN Hypoglycemia Protocol Hydrocortisone Sodium Succinate 100 mg 10/09/24 14:30 10/10/24 13:48 Hydrocortisone Sodium Succinate 100 Mg/2 Ml Vial IV PUSH 100 mg Q8HR CESAR Administration Ceftriaxone Sodium 1 gm in 50 mls @ 100 mls/hr 10/09/24 12:00 10/10/24 12:28 Rocephin 1 Gm/Ns 50 Ml IVPB Infused Q24H CESAR Infusion Azithromycin 500 mg in 250 mls @ 250 mls/hr 10/09/24 12:00 10/10/24 12:57 Zithromax IVPB Infused Q24H CESAR Infusion Dextrose 1,000 mls @ 100 mls/hr 10/08/24 22:06 Dextrose 5% 1,000 Ml IVPB PRN PRN Hypoglycemia Protocol Vasopressin 100 units/ 100 mls @ 1.2 mls/hr 10/08/24 22:45 10/10/24 14:00 Dextrose IV CONT 0.02 units/min .Q72H CESAR 1.2 mls/hr Titration Protocol 0.02 UNITS/MIN Epinephrine HCl 4 mg/ Dextrose 254 mls @ 0 mls/hr 10/09/24 19:20 10/10/24 14:00 IV CONT 0 mcg/min .Q0M CESAR 0 mls/hr Titration Protocol 0 MCG/MIN Norepinephrine Bitartrate 16 250 mls @ 25.313 mls/hr 10/09/24 19:25 10/10/24 14:30 mg/ Dextrose IV CONT 27 mcg/min .Q9H53M CESAR 25.31 mls/hr Titration Protocol 27 MCG/MIN Fentanyl Citrate 2,500 mcg in 250 mls @ 7.5 mls/hr 10/10/24 00:10 10/10/24 14:00 Fentanyl 2,500 Mcg/Ns 250 Ml IV CONT 75 mcg/hr .[id number] CESAR 7.5 mls/hr Titration Protocol 75 MCG/HR Midazolam HCl 100 mg in 100 mls @ 2 mls/hr 10/10/24 00:10 10/10/24 14:00 Versed 100 Mg/Ns 100 Ml IV CONT 2 mg/hr .Q50H CESAR 2 mls/hr Titration Protocol 2 MG/HR Insulin Aspart 3 - 6 units 10/09/24 00:00 10/10/24 11:56 Insulin Aspart (*Bkc) 100 Units/Ml SUB-Q 3 units Q6HR CESAR Administration Protocol Multi-Ingred Cream/Lotion/Oil/Oint 1 applic 10/10/24 09:00 10/10/24 10:00 Mineral Oil/White Petrolatum Ointment EACH EYE 1 applic Q12HR CESAR Administration Mupirocin 1 applic 10/09/24 09:00 10/10/24 08:06 Mupirocin 2% Oint 22 Gm Tube EACH NARE 1 applic Q12HR CESAR Administration Oseltamivir Phosphate 30 mg 10/11/24 21:00 10/09/24 21:00 Oseltamivir Phosphate 30 Mg Capsule PO 10/12/24 21:01 Not Given [id number] CESAR Pantoprazole Sodium 40 mg 10/09/24 13:45 10/10/24 08:03 Pantoprazole Sodium Iv 40 Mg Vial IV PUSH 40 mg QAM CESAR Administration Fluticasone/Salmeterol 2 puff 10/09/24 08:00 10/09/24 09:26 Fluticasone/Salmeterol 115-21 Mcg Inhaler 1 Puff INHALATION Not Given Q12HRT CESAR Sevelamer Carbonate 1,600 mg 10/09/24 08:00 10/10/24 11:58 Sevelamer Carbonate 800 Mg Tablet PO 1,600 mg TIDWM CESAR Administration Sodium Chloride 10 ml 10/09/24 14:00 10/10/24 13:49 Central Line Flush IV PUSH 10 ml Q8HR CESAR Administration Sodium Chloride 20 ml 10/09/24 06:24 Central Line Flush IV PUSH PRN PRN after blood draws Sodium Zirconium Cyclosilicate 10 gm 10/09/24 22:00 10/10/24 11:57 Sodium Zirconium Cyclosilicate 10 Gm Powd.Pack PO 10/11/24 21:59 10 gm TID@1000,1500,2200 CESAR Administration Sodium Zirconium Cyclosilicate 10 gm 10/10/24 07:25 10/10/24 08:05 Sodium Zirconium Cyclosilicate 10 Gm Powd.Pack PO 10/11/24 09:01 10 gm DAILY CESAR Administration Vancomycin HCl 1 each 10/08/24 23:03 Vancomycin For Hemodialysis IVPB PRN PRN Vancomycin Protocol Radiology Results: ITS Impressions Pelvis X-Ray 10/08/24 22:22 IMPRESSION: As above. Head CT 10/08/24 23:18 IMPRESSION: No acute intracranial findings. Chest CT 10/08/24 23:27 IMPRESSION: 1. Interstitial thickening in the lower lobes which may indicate pneumonitis. Edema is less likely. 2. Cardiomegaly. 3. Cholelithiasis 4. Splenic cysts unchanged. Chest X-Ray 10/10/24 06:37 Impression: Probable right upper lobe and left lower lobe airspace disease. Correlate for bilateral pneumonia versus possibly pulmonary edema. Central congestive change. Support tubes, as above. Labs Labs: Laboratory Results - last 24 hr 10/09/24 10/09/24 10/09/24 18:30 19:02 23:07 WBC RBC Hgb Hct MCV MCH MCHC RDW Plt Count MPV Immature Gran % (Auto) Neut % (Auto) Lymph % (Auto) [place] % (Auto) Eos % (Auto) Baso % (Auto) Lymph # (Auto) [place] # (Auto) Eos # (Auto) Baso # (Auto) Abs Immat Gran (auto) Absolute Neuts (auto) Absolute Nucleated RBC Total Counted Neutrophils % (Manual) Band Neutrophils % Lymphocytes % (Manual) Monocytes % (Manual) Nucleated RBC % Abs Neuts (Manual) Abs Lymphs (Manual) Abs Monocytes (Manual) Platelet Estimate % Immature Plt Fraction Schistocytes PT INR APTT Puncture Site ABG pH ABG pCO2 ABG pO2 ABG PO2/FiO2 Ratio ABG HCO3 ABG O2 Saturation ABG O2 Content ABG Base Excess A-a Gradient Oxyhemoglobin Carboxyhemoglobin Methemoglobin Reduced Hemoglobin Total Hemoglobin O2 Delivery Device O2 Liters/Min Minute Volume Vent Rate Vent Mode FiO2 Tidal Volume PEEP Peak Inspir Pressure Pressure Support Sodium Potassium Chloride Carbon Dioxide Anion Gap BUN Creatinine Estim Creat Clear Calc Estimated GFR Glucose POC Capillary Glucose 182 H Lactic Acid 2.9 H 3.1 H Calcium Phosphorus Magnesium Total Bilirubin AST ALT Alkaline Phosphatase Total Protein Albumin Random Vancomycin 14.5 10/09/24 10/10/24 10/10/24 23:57 04:55 04:59 WBC 17.8 H RBC 4.49 L Hgb 14.1 Hct 43.9 MCV 97.8 MCH 31.4 MCHC 32.1 RDW 16.3 H Plt Count 86 L MPV 12.4 H Immature Gran % (Auto) Not Reportable Neut % (Auto) Not Reportable Lymph % (Auto) Not Reportable [place] % (Auto) Not Reportable Eos % (Auto) Not Reportable Baso % (Auto) Not Reportable Lymph # (Auto) Not Reportable [place] # (Auto) Not Reportable Eos # (Auto) Not Reportable Baso # (Auto) Not Reportable Abs Immat Gran (auto) Not Reportable Absolute Neuts (auto) Not Reportable Absolute Nucleated RBC Not Reportable Total Counted 100 Neutrophils % (Manual) 91 H Band Neutrophils % 6 Lymphocytes % (Manual) 2 L Monocytes % (Manual) 1 L Nucleated RBC % Not Reportable Abs Neuts (Manual) 17.26 H Abs Lymphs (Manual) 0.35 L Abs Monocytes (Manual) 0.17 Platelet Estimate Decreased % Immature Plt Fraction 9.5 Schistocytes None seen PT 25.0 H INR 2.2 APTT 34.0 Puncture Site Artline ABG pH 7.383 ABG pCO2 38.1 ABG pO2 67.0 L ABG PO2/FiO2 Ratio 2.23 ABG HCO3 22.2 ABG O2 Saturation 93.2 L ABG O2 Content 17.1 ABG Base Excess -2.5 A-a Gradient 102.1 Oxyhemoglobin 90.5 Carboxyhemoglobin 0.9 Methemoglobin 0.3 Reduced Hemoglobin 8.3 H Total Hemoglobin 13.4 O2 Delivery Device Ventilator O2 Liters/Min Not Reportable Minute Volume Not Reportable Vent Rate 14 Vent Mode Cmv FiO2 30 Tidal Volume 500 PEEP 5 Peak Inspir Pressure Not Reportable Pressure Support Not Reportable Sodium 134 L Potassium 5.3 H Chloride 91 L Carbon Dioxide 27 Anion Gap 16 H BUN 43 H D Creatinine 5.14 H Estim Creat Clear Calc 10 Estimated GFR 11 L Glucose 234 H POC Capillary Glucose 261 H Lactic Acid 2.6 H Calcium 6.6 L Phosphorus 4.6 H Magnesium 2.1 Total Bilirubin 2.2 H AST 32 ALT 16 Alkaline Phosphatase 75 Total Protein 7.0 Albumin 3.8 Random Vancomycin 10/10/24 10/10/24 10/10/24 06:27 11:55 13:11 WBC RBC Hgb Hct MCV MCH MCHC RDW Plt Count MPV Immature Gran % (Auto) Neut % (Auto) Lymph % (Auto) [place] % (Auto) Eos % (Auto) Baso % (Auto) Lymph # (Auto) [place] # (Auto) Eos # (Auto) Baso # (Auto) Abs Immat Gran (auto) Absolute Neuts (auto) Absolute Nucleated RBC Total Counted Neutrophils % (Manual) Band Neutrophils % Lymphocytes % (Manual) Monocytes % (Manual) Nucleated RBC % Abs Neuts (Manual) Abs Lymphs (Manual) Abs Monocytes (Manual) Platelet Estimate % Immature Plt Fraction Schistocytes PT INR APTT Puncture Site ABG pH ABG pCO2 ABG pO2 ABG PO2/FiO2 Ratio ABG HCO3 ABG O2 Saturation ABG O2 Content ABG Base Excess A-a Gradient Oxyhemoglobin Carboxyhemoglobin Methemoglobin Reduced Hemoglobin Total Hemoglobin O2 Delivery Device O2 Liters/Min Minute Volume Vent Rate Vent Mode FiO2 Tidal Volume PEEP Peak Inspir Pressure Pressure Support Sodium 133 L Potassium 5.4 H Chloride 90 L Carbon Dioxide 27 Anion Gap 16 H BUN 48 H Creatinine 5.46 H Estim Creat Clear Calc 10 Estimated GFR 10 L Glucose 237 H POC Capillary Glucose 233 H 202 H Lactic Acid Calcium 6.8 L Phosphorus Magnesium Total Bilirubin AST ALT Alkaline Phosphatase Total Protein Albumin Random Vancomycin Quality VTE Prophylaxis VTE prophylaxis: mechanical ordered
[2024-10-10] MEDS: NOREPINEPHRINE BITARTRATE 16 MG in DEXTROSE 5% IN WATER 234 ML 24.38 MG IV CONT (17:22)
[2024-10-10] MEDS: VASOPRESSIN INJ 100 UNITS in DEXTROSE 5% 95 ML IV CONT (17:28)
[2024-10-10 18:54] LABS: Glucose Point of Care 241 mg/dl (65-105)
[2024-10-10 20:29] LABS: Anion Gap 14 mmol/L (4-12); Blood Urea Nitrogen 51 mg/dL (9-20); Calcium 6.6 mg/dL (8.4-10.2); Carbon Dioxide 28 mmol/L (22-30); Chloride 89 mmol/L (98-107); Estimated CRCL calculation 10 ml/min; Estimated Glomerular Filt Rate 10; Glucose 250 mg/dL (65-110); Potassium 5.1 mmol/L (3.4-5.0); Sodium 131 mmol/L (137-145)
[2024-10-11] VITALS (89 sets, daily range): BP systolic 90–143; BP diastolic 48–77; PULSE 14–74; RESP 13–16; TEMP 36.4–37.3; O2SAT 93–97; BMI 36.8
--- NOTE | 2024-10-11 | ECHO_ITS ---
Patient Info Name: Khalif Yanez Age: 84 years : 1940 Gender: Male Ht: 66 in Wt: 228 lbs BSA: 2.24 m2 HR: 81 bpm BP: 111 / 59 mmHg Technical Quality: Fair Exam Date: 10/11/2024 1:49 PM Exam Location: Echo Lab Patient Status: Inpatient Admit Date: 10/09/2024 Staff Ordering Physician: Davion Piña MD English Instructor: Agnes Otto RDCS Attending Provider: Sanjay Schneider MD Exam Type: CA echo doppler color flow Study Info Indications - Bacteremia Complete two-dimensional, color flow and Doppler transthoracic echocardiogram is performed. Summary 1. Left ventricular chamber dimension is normal. 2. Left ventricular systolic function is normal, estimated at >70%. 3. There is mildly increased left ventricular wall thickness. 4. The left ventricular diastolic function is grade II diastolic dysfunction. 5. Right ventricular chamber dimension is severely enlarged. 6. Right ventricular systolic function is reduced. 7. Flattening of the septum in diastole and systole consistent with right ventricular volume and pressure overload. 8. Left atrial chamber dimension is severely enlarged. 9. Right atrial chamber dimension is severely enlarged. 10. There is mild mitral valve regurgitation. 11. There is moderate to severe tricuspid valve regurgitation. 12. Pulmonary hypertension, estimated pulmonary arterial systolic pressure is 66 mmHg. 13. There is mild pulmonic regurgitation. 14. Dilated inferior vena cava with <50% collapse upon inspiration consistent with elevated right atrial pressure, 15 mmHg. 15. Left pleural effusion present. 16. Study ordered for bacteremia. Cannot rule out vegetations on this study. Consider ROBERT if clinically indicated. Left Ventricle Left ventricular chamber dimension is normal. Left ventricular systolic function is normal, estimated at >70%. There is mildly increased left ventricular wall thickness. The left ventricular diastolic function is grade II diastolic dysfunction. Right Ventricle Flattening of the septum in diastole and systole consistent with right ventricular volume and pressure overload. Right ventricular chamber dimension is severely enlarged. Right ventricular systolic function is reduced. Left Atria Left atrial chamber dimension is severely enlarged. Right Atria Right atrial chamber dimension is severely enlarged. Atrial Septum Intact interatrial septum visualized by color flow imaging. Aortic Valve The aortic valve is trileaflet. There is no aortic valve regurgitation. There is mild aortic valve calcification. Pulmonic Valve The pulmonic valve is not well visualized. There is mild pulmonic regurgitation. Mitral Valve The mitral valve has thickened leaflets. There is mild mitral valve regurgitation. Tricuspid Valve There is moderate to severe tricuspid valve regurgitation. Pulmonary hypertension, estimated pulmonary arterial systolic pressure is 66 mmHg. Pericardium/Pleural Left pleural effusion present. There is no pericardial effusion. Inferior Vena Cava Dilated inferior vena cava with <50% collapse upon inspiration consistent with elevated right atrial pressure, 15 mmHg. Aorta The aortic root size at the sinus of Valsalva is normal. Left Ventricular Outflow Tract Name Value Normal LVOT 2D LVOT Diameter 2.0 cm LVOT Doppler LVOT Peak Gradient 4 mmHg LVOT Mean Gradient 2 mmHg LVOT VTI 17 cm LVOT VTI/AV VTI Ratio 1.0 LVOT Stroke Volume 55 ml LVOT CO 10.7 l/min LVOT CI 4.8 l/min/m2 Pulmonic Valve Name Value Normal PV Doppler PV Peak Gradient 6 mmHg Mitral Valve Name Value Normal MV Doppler MV Decel [place] 497 cm/s2 MV PHT 55 ms MV Area (PHT) 4.0 cm2 4.0-5.0 MV Diastolic Function MV E Peak Velocity 95 cm/s MV A Peak Velocity 27 cm/s MV E/A 3.6 MV Decel Time 191 ms MV Annular TDI MV E/e' (Lateral) 11.3 <=8.0 Tricuspid Valve Name Value Normal TV Regurgitation Doppler TR Peak Velocity 356 cm/s TR Peak Gradient 41 mmHg Estimated PAP/RSVP RA Pressure 15 mmHg <=5 PA Systolic Pressure 66 mmHg <36 RV Systolic Pressure 66 mmHg <36 Aorta Name Value Normal Ascending Aorta Ao Root Diameter (MM) 4.3 cm Ao Root Diam Index (MM) 1.9 cm/m2 Aortic Valve Name Value Normal AV Doppler AV Peak Velocity 118 cm/s AV Peak Gradient 6 mmHg AV Mean Gradient 3 mmHg AV VTI 17 cm AV Area (Cont Eq VTI) 3.1 cm2 >=3.0 AV Area (Cont Eq Suraj) 2.6 cm2 AV Regurgitation 2D LVOT Area 3.2 cm2 Ventricles Name Value Normal LV Dimensions 2D/MM IVS Diastolic Thickness (2D) 1.1 cm 0.6-1.0 LVID Diastole (2D) 4.5 cm 4.2-5.8 LVIW Diastolic Thickness (2D) 1.0 cm 0.6-1.0 LVID Systole (2D) 3.1 cm 2.5-4.0 LVOT Diameter 2.0 cm LV Mass (2D Cubed) 167.20 g 88.00-224.00 LV Mass Index (2D Cubed) 75 g/m2 49-115 Relative Wall Thickness (2D) 0.45 LV Fractional Shortening/Ejection Fraction 2D/MM LV Fractional Shortening (2D) 31 % 25-43 LV EF (2D Teicholz) 59 % 52-72 LV Diastolic Volume (4C MOD) 98 ml LV EF (4C MOD) 79 % LV Diastolic Volume (2C MOD) 81 ml LV EF (2C MOD) 65 % LV Diastolic Volume (BP MOD) 90 ml 62-150 LV Diastolic Volume Index (BP MOD) 40 ml/m2 34-74 LV Systolic Volume (BP MOD) 25 ml 21-61 LV Systolic Volume Index (BP MOD) 11 ml/m2 11-31 LV EF (BP MOD) 72 % 52-72 LV Diastolic Length (4C) 7.3 cm LV Systolic Length (4C) 5.4 cm LV Stroke Volume (4C MOD) 77 ml Atria Name Value Normal LA Dimensions LA Dimension (MM) 3.8 cm 3.0-4.1 LA Volume (4C A-L) 107 ml LA Volume (BP A-L) 111 ml RA Dimensions RA Area (4C) 45.0 cm2 <=18.0 Report Signatures
[2024-10-11 00:02] LABS: Glucose Point of Care 248 mg/dl (65-105)
[2024-10-11] MEDS: INSULIN ASPART (*BKC) 100 UNITS/ML SUB-Q ×4 (00:13→20:26)
[2024-10-11] MEDS: IPRATROPIUM 0.5 MG/ALBUTEROL SULFATE 2.5 MG AMPUL.NEB 3 ML INHALATION ×3 (01:43→20:07)
[2024-10-11] MEDS: NOREPINEPHRINE BITARTRATE 16 MG in DEXTROSE 5% IN WATER 234 ML 23.44 MG IV CONT (03:23)
[2024-10-11 04:49] LABS: Alveolar/Arterial O2 Gradient 88.6 mmHg; Base Excess ABG -0.3 mEq/l (+/-2.0); Carboxyhemoglobin 1.4 % THb (0-2.0); Fractional Inspired Oxygen 30 %; HCO3 ABG 25.3 mEq/l (22.0-26.0); Methemoglobin ABG 0.3 %THb (0-1.5); Oxygen Content ABG 19.1 %vol (16.0-22.0); Oxygen Saturation ABG 94.2 % (95.0-100.0); Oxyhemoglobin 91.9 % THb (90.0-100.0); PCO2 ABG 44.7 mmHg (35.0-45.0); PO2 ABG 72.8 mmHg (80.0-100.0); PO2 FiO2 Ratio Arterial Blood 2.43 %; Reduced Hemoglobin 6.4 %THb (0-5.0); Total Hemoglobin 14.8 g/dL (12.0-18.0)
[2024-10-11 04:50] LABS: Device VENTILATOR; Site Drawn ARTLINE
[2024-10-11 04:51] LABS: Arterial Blood Gas PEEP 5 cmH2O; Arterial Blood Gas Tidal Volume 500 ml; Arterial Blood Gas Vent Mode CMV; Arterial Blood Gas Ventilator rate 14 /MIN
[2024-10-11 05:44] LABS: Glucose Point of Care 256 mg/dl (65-105)
[2024-10-11 05:48] LABS: Basophils Percent Auto 0.2 % (0.2-1.2); Hematocrit 43.9 % (42.0-52.0); Hemoglobin 14.3 g/dL (14.0-18.0); Immature Granulocyte Absolute 0.12 K/mm3 (0.00-0.031); Immature Granulocyte Percent A 0.7 % (0-0.5); Lymphocytes Absolute Auto 0.57 K/mm3 (0.9-3.2); Lymphocytes Percent Auto 3.3 % (18.3-44.2); Mean Corpuscular HGB Conc 32.6 g/dl (32-36); Mean Corpuscular Hemoglobin 31.4 pg (26-34); Mean Corpuscular Volume 96.3 fl (80-100); Mean Platelet Volume 11.4 fl (7.4-10.4); Monocytes Absolute Auto 0.6 K/mm3 (0.1-0.6); Monocytes Percent Auto 3.7 % (2.6-8.5); Neutrophils Percent Auto 92.1 % (45.5-73.1); Nucleated Red Blood Cells Perc 0.1 % (0.0-0.2); Platelet Count Result 108 k/mm3 (150-375); Red Blood Count 4.56 M/mm3 (4.6-6.20); Red Cell Distribution Width 16.2 % (11.5-14.5); White Blood Count 17.4 K/mm3 (4.5-10.0)
[2024-10-11] MEDS: HYDROCORTISONE SODIUM SUCCINATE 100 MG/2 ML VIAL IV PUSH ×3 (05:53→20:23)
[2024-10-11] MEDS: CENTRAL LINE FLUSH 10 ML IV PUSH ×3 (05:54→20:23)
[2024-10-11] MEDS: FENTANYL 2,500MCG/NS250ML(*CRX 2,500 MCG/250 ML BAG 7.5 MCG IV CONT (05:56)
[2024-10-11] MEDS: MIDAZOLAM 100MG/NS 100ML(*CRX) 100 MG/100 ML BAG IV CONT (05:57)
[2024-10-11 06:01] LABS: Lactic Acid Reflex 2.1 mmol/L (0.7-2.0)
[2024-10-11 06:02] LABS: Alanine Aminotransferase 15 U/L (6-50); Albumin Level 3.4 g/dL (3.5-5.1); Alkaline Phosphatase 68 U/L (38-126); Anion Gap 16 mmol/L (4-12); Aspartate Amino Transferase 29 U/L (17-59); Bilirubin,Total 1.8 mg/dL (0.2-1.3); Blood Urea Nitrogen 57 mg/dL (9-20); Calcium 6.5 mg/dL (8.4-10.2); Carbon Dioxide 27 mmol/L (22-30); Chloride 89 mmol/L (98-107); Estimated CRCL calculation 9 ml/min; Estimated Glomerular Filt Rate 9; Glucose 240 mg/dL (65-110); Phosphorus 5.4 mg/dL (2.5-4.5); Potassium 5.2 mmol/L (3.4-5.0); Sodium 132 mmol/L (137-145)
[2024-10-11 06:48] LABS: Hepatitis B Surface Antigen Negative (Negative)
[2024-10-11 07:05] LABS: Hepatitis B Surface Anti Res Negative
[2024-10-11] MEDS: BUDESONIDE RESPULE NEB 0.5 MG/2 ML AMP INHALATION ×2 (07:53→20:07)
[2024-10-11 08:45] LABS: Reflex Lactic Acid Yes or No Add Lactic
--- NOTE | 2024-10-11 09:07 | P.PNINT_ITS ---
Progress Note: A&P Assessment and Plan (1) Respiratory failure: Code(s): J96.90 - Respiratory failure, unspecified, unspecified whether with hypoxia or hypercapnia Status: Acute Assessment and Plan: Acute respiratory failure likely related to pneumonia, altered mental status, airway protection 10/08: Intubated -currently on CMV mode of ventilation, peep of 5, 30% FiO2 - continue bronchodilators and Pulmicort -chest x-ray reviewed, ventilator adjusted -sedated with fentanyl and Versed infusion maintain RASS of 0 to -2 -will plan for sedation holiday after dialysis today. (2) Septic shock: Code(s): A41.9 - Sepsis, unspecified organism; R65.21 - Severe sepsis with septic shock Status: Acute Assessment and Plan: Patient presented with altered mental status, hypotension, lactic acidosis -septic shock likely related to bacteremia, bilateral pneumonia along with influenza -continue azithromycin, ceftriaxone, vanc, (10/08) -10/08: Blood cultures growing strep mitis 10/10 repeat set of blood culture sent and pending -check echocardiogram -patient did receive 1500 mL in IV fluids on had upon admission -status post albumin 25% q.6 hours x4 doses for intravascular volume expansion -patient remains on Levophed and vasopressin, maintain MAP > greater than 65 mmHg or SBP greater than 100 mmHg for adequate end organ perfusion -off epinephrine infusion -continue hydrocortisone (3) Bacteremia: Code(s): R78.81 - Bacteremia Status: Acute Assessment and Plan: 10/08: Blood cultures growing strep mitis group 10/10 repeat set of blood culture sent and pending -continue antibiotics as above (4) Influenza A: Code(s): J10.1 - Influenza due to other identified influenza virus with other respiratory manifestations Status: Acute Assessment and Plan: Continue Tamiflu, renally dosed (5) Pneumonia: Code(s): J18.9 - Pneumonia, unspecified organism Status: Acute Assessment and Plan: Chest x-ray showed pneumonia, CT chest showed pneumonitis, -continue antibiotics as above (6) Altered mental status: Code(s): R41.82 - Altered mental status, unspecified Status: Acute Assessment and Plan: Currently intubated and sedated Head CT was negative for any acute changes at the time presentation (7) End-stage renal disease on hemodialysis: Code(s): N18.6 - End stage renal disease; Z99.2 - Dependence on renal dialysis Status: Acute Assessment and Plan: End-stage renal disease on dialysis (M, W, F) -dialysis per Nephrology Patient is getting set up for dialysis this morning. (8) Diabetes: Qualifiers: Chronic kidney disease stage: on chronic dialysis Diabetes mellitus complication detail: with chronic kidney disease Diabetes mellitus complication status: with kidney complications Diabetes mellitus care home insulin use: [facility] care home use Diabetes mellitus type: type 2 Qualified Code(s): E11.22 - Type 2 diabetes mellitus with diabetic chronic kidney disease; N18.6 - End stage renal disease; Z99.2 - Dependence on renal dialysis Code(s): E11.9 - Type 2 diabetes mellitus without complications Status: Chronic Assessment and Plan: Increase sliding scale to q.4 hours and high Add Lantus Plan DVT prophylaxis: SCDs, note chemoprophylaxis secondary to thrombocytopenia Stress ulcer prophylaxis: Nutrition: NPO for now Code Status: Full code Critical Care Time Spent: 36 minutes Discussed with patient's at bedside updated with patient's condition plan of care. She is aware that patient has bacteremia, pneumonia, septic shock, on 2 blood pressure support medications. I answered all questions Due to a high probability of clinically significant, life threatening deterioration, the patient required my highest level of preparedness to intervene emergently and I personally spent this critical care time directly and personally managing the patient. This critical care time included obtaining a history; examining the patient; pulse oximetry; ordering and review of studies; arranging urgent treatment with development of a management plan; evaluation of patient's response to treatment; frequent reassessment; and discussions with other providers. It was exclusive of separately billable procedures and treating other patients and teaching time. Please see Assessment and Plan section and the rest of the note for further information on patient assessment and treatment This dictation may have been done utilizing a voice recognition system. Attempts have been made to correct errors. However, there may be uncorrected grammatical, spelling, and recognitions errors present. Subjective Date/time seen: 10/11/24 Overnight events reviewed. Afebrile Continues to be on mechanical ventilation peep of 5 and 30% FiO2 Continues to be on vasopressors Levophed. Off vasopressin Continues to be sedated with Versed and fentanyl Tube feeds at 20 mL/hour Interval history: Reason for consult: Altered mental status, generalized weakness, hypotension, shock, acute respiratory failure, Gram-positive cocci in chains bacteremia, influenza A positive, MRSA screen positive Review of Systems Review of Systems: ROS unobtainable: Yes unobtainable due to endotracheal tube, unobtainable due to medical condition and unobtainable due to mental status Exam Narrative: General: Sedated and intubated, in no acute distress HEENT:? Pupils equal and reactive bilaterally Neck:? Supple Respiratory:? Coarse breath sounds bilaterally, decreased at bases, no wheezing, adequate air entry Cardiac:? Irregularly irregular, bradycardic Abdomen:? Soft, nontender, nondistended, protuberant, hypoactive bowel sound Extremities:? Bilateral lower extremity edema pitting in nature, palpable pedal pulses Neuro:? Patient is intubated, sedated, does not open his eyes or follow simple commands, withdraws to pain in all extremity Skin:? Skin is dry and flaky Psych:? Unable to assess at this time Objective Data Vital Signs Vital Signs: Vital Signs - 24 hr 10/10/24 09:13 10/10/24 09:33 10/10/24 10:00 Temperature Pulse Rate 59 L 60 56 L Respiratory Rate 15 14 Blood Pressure 95/52 L 96/52 L Pulse Oximetry 96 Oxygen Delivery Fraction of Inspired Oxygen 10/10/24 10:00 10/10/24 10:00 10/10/24 10:00 Temperature Pulse Rate 55 L 57 L 57 L Respiratory Rate 14 Blood Pressure 97/53 L Pulse Oximetry Oxygen Delivery Fraction of Inspired Oxygen 10/10/24 10:00 10/10/24 10:00 10/10/24 10:50 Temperature Pulse Rate 57 L 57 L 58 L Respiratory Rate 14 Blood Pressure 97/53 L Pulse Oximetry 95 Oxygen Delivery Mechanical Ventilation Fraction of Inspired Oxygen 30 10/10/24 11:00 10/10/24 12:00 10/10/24 12:00 Temperature Pulse Rate 62 60 62 Respiratory Rate Blood Pressure 110/59 L 96/55 L 110/59 L Pulse Oximetry Oxygen Delivery Fraction of Inspired Oxygen 10/10/24 12:00 10/10/24 12:00 10/10/24 12:00 Temperature Pulse Rate 62 62 62 Respiratory Rate 14 14 Blood Pressure 110/59 L Pulse Oximetry Oxygen Delivery Fraction of Inspired Oxygen 10/10/24 12:00 10/10/24 12:00 10/10/24 12:00 Temperature 37.2 C Pulse Rate 62 Respiratory Rate 14 Blood Pressure 110/59 L Pulse Oximetry 95 95 Oxygen Delivery Mechanical Ventilation Fraction of Inspired Oxygen 30 30 10/10/24 12:00 10/10/24 13:10 10/10/24 13:40 Temperature Pulse Rate 60 67 61 Respiratory Rate Blood Pressure 82/52 L Pulse Oximetry 95 Oxygen Delivery Mechanical Ventilation Fraction of Inspired Oxygen 30 10/10/24 13:40 10/10/24 13:48 10/10/24 14:00 Temperature Pulse Rate 61 55 L 64 Respiratory Rate 14 14 Blood Pressure 113/63 Pulse Oximetry Oxygen Delivery Fraction of Inspired Oxygen 10/10/24 14:00 10/10/24 14:00 10/10/24 14:00 Temperature Pulse Rate 64 64 64 Respiratory Rate 14 14 Blood Pressure 113/63 Pulse Oximetry Oxygen Delivery Fraction of Inspired Oxygen 10/10/24 14:00 10/10/24 14:00 10/10/24 14:30 Temperature Pulse Rate 64 59 L 58 L Respiratory Rate 14 Blood Pressure 113/63 108/53 L Pulse Oximetry 95 Oxygen Delivery Fraction of Inspired Oxygen 10/10/24 14:54 10/10/24 16:00 10/10/24 16:00 Temperature Pulse Rate 56 L 58 L 58 L Respiratory Rate 16 Blood Pressure 99/49 L 99/49 L Pulse Oximetry Oxygen Delivery Fraction of Inspired Oxygen 10/10/24 16:00 10/10/24 16:00 10/10/24 16:00 Temperature Pulse Rate 58 L 58 L 58 L Respiratory Rate 14 14 Blood Pressure 99/49 L Pulse Oximetry Oxygen Delivery Fraction of Inspired Oxygen 10/10/24 16:00 10/10/24 16:00 10/10/24 16:00 Temperature 36.6 C Pulse Rate 58 L Respiratory Rate 14 Blood Pressure 108/55 L Pulse Oximetry 99 100 Oxygen Delivery Mechanical Ventilation Fraction of Inspired Oxygen 30 30 10/10/24 16:00 10/10/24 16:26 10/10/24 17:22 Temperature Pulse Rate 59 L 54 L 54 L Respiratory Rate Blood Pressure 110/52 L Pulse Oximetry 100 Oxygen Delivery Mechanical Ventilation Fraction of Inspired Oxygen 30 10/10/24 17:22 10/10/24 17:28 10/10/24 17:28 Temperature Pulse Rate 54 L 55 L 55 L Respiratory Rate Blood Pressure 110/52 L 114/56 L 114/56 L Pulse Oximetry Oxygen Delivery Fraction of Inspired Oxygen 10/10/24 18:00 10/10/24 18:00 10/10/24 18:00 Temperature Pulse Rate 57 L 58 L 64 Respiratory Rate 14 Blood Pressure 118/57 L 118/56 L Pulse Oximetry 98 Oxygen Delivery Fraction of Inspired Oxygen 10/10/24 18:00 10/10/24 18:00 10/10/24 18:00 Temperature Pulse Rate 60 58 L 58 L Respiratory Rate 14 14 Blood Pressure 115/54 L Pulse Oximetry Oxygen Delivery Fraction of Inspired Oxygen 10/10/24 18:00 10/10/24 19:00 10/10/24 19:15 Temperature Pulse Rate 58 L 60 57 L Respiratory Rate 14 14 Blood Pressure 118/57 L Pulse Oximetry 97 97 Oxygen Delivery Fraction of Inspired Oxygen 10/10/24 19:30 10/10/24 19:45 10/10/24 19:47 Temperature Pulse Rate 56 L 62 57 L Respiratory Rate 14 14 Blood Pressure Pulse Oximetry 96 97 97 Oxygen Delivery Mechanical Ventilation Fraction of Inspired Oxygen 30 10/10/24 19:47 10/10/24 20:00 10/10/24 20:00 Temperature Pulse Rate 57 L 61 61 Respiratory Rate 14 14 Blood Pressure 127/61 Pulse Oximetry Oxygen Delivery Fraction of Inspired Oxygen 10/10/24 20:00 10/10/24 20:00 10/10/24 20:00 Temperature Pulse Rate 61 61 54 L Respiratory Rate 14 Blood Pressure 127/61 Pulse Oximetry Oxygen Delivery Fraction of Inspired Oxygen 10/10/24 20:00 10/10/24 20:00 10/10/24 20:00 Temperature 36.6 C Pulse Rate 61 61 Respiratory Rate 14 14 Blood Pressure 127/61 Pulse Oximetry 97 97 Oxygen Delivery Mechanical Ventilation Fraction of Inspired Oxygen 30 30 10/10/24 20:00 10/10/24 20:00 10/10/24 20:06 Temperature Pulse Rate 61 53 L 56 L Respiratory Rate 14 14 Blood Pressure 127/61 Pulse Oximetry 97 Oxygen Delivery Fraction of Inspired Oxygen 10/10/24 20:15 10/10/24 20:30 10/10/24 20:40 Temperature Pulse Rate 55 L 58 L 61 Respiratory Rate 14 14 Blood Pressure 123/59 L Pulse Oximetry 97 97 Oxygen Delivery Fraction of Inspired Oxygen 10/10/24 20:45 10/10/24 21:00 10/10/24 21:15 Temperature Pulse Rate 66 58 L 58 L Respiratory Rate 14 14 14 Blood Pressure Pulse Oximetry 97 97 97 Oxygen Delivery Fraction of Inspired Oxygen 10/10/24 21:30 10/10/24 21:45 10/10/24 22:00 Temperature Pulse Rate 60 58 L 62 Respiratory Rate 14 14 Blood Pressure 111/54 L Pulse Oximetry 98 98 Oxygen Delivery Fraction of Inspired Oxygen 10/10/24 22:00 10/10/24 22:00 10/10/24 22:00 Temperature Pulse Rate 62 62 62 Respiratory Rate 14 14 Blood Pressure 111/54 L Pulse Oximetry Oxygen Delivery Fraction of Inspired Oxygen 10/10/24 22:00 10/10/24 22:00 10/10/24 22:00 Temperature Pulse Rate 59 L 59 L 59 L Respiratory Rate 14 Blood Pressure 111/54 L 111/54 L Pulse Oximetry 97 Oxygen Delivery Fraction of Inspired Oxygen 10/10/24 22:00 10/10/24 22:15 10/10/24 22:29 Temperature Pulse Rate 65 63 66 Respiratory Rate 14 14 Blood Pressure Pulse Oximetry 97 97 96 Oxygen Delivery Mechanical Ventilation Fraction of Inspired Oxygen 30 10/10/24 22:30 10/10/24 22:30 10/10/24 22:45 Temperature Pulse Rate 62 63 68 Respiratory Rate 14 14 Blood Pressure 109/53 L Pulse Oximetry 97 97 Oxygen Delivery Fraction of Inspired Oxygen 10/10/24 23:00 10/10/24 23:15 10/10/24 23:30 Temperature Pulse Rate 64 66 67 Respiratory Rate 14 14 15 Blood Pressure Pulse Oximetry 97 97 97 Oxygen Delivery Fraction of Inspired Oxygen 10/10/24 23:45 10/11/24 00:00 10/11/24 00:00 Temperature Pulse Rate 71 74 74 Respiratory Rate 14 14 Blood Pressure 90/48 L Pulse Oximetry 97 Oxygen Delivery Fraction of Inspired Oxygen 10/11/24 00:00 10/11/24 00:00 10/11/24 00:00 Temperature Pulse Rate 74 74 74 Respiratory Rate 14 Blood Pressure 90/48 L 90/48 L Pulse Oximetry Oxygen Delivery Fraction of Inspired Oxygen 10/11/24 00:00 10/11/24 00:00 10/11/24 00:00 Temperature Pulse Rate 74 71 Respiratory Rate 14 Blood Pressure Pulse Oximetry 96 Oxygen Delivery Mechanical Ventilation Fraction of Inspired Oxygen 30 30 10/11/24 00:00 10/11/24 00:00 10/11/24 00:15 Temperature 36.8 C Pulse Rate 74 65 Respiratory Rate 14 14 Blood Pressure 90/48 L Pulse Oximetry 96 96 96 Oxygen Delivery Fraction of Inspired Oxygen 10/11/24 00:30 10/11/24 00:45 10/11/24 01:00 Temperature Pulse Rate 67 64 63 Respiratory Rate 14 13 14 Blood Pressure Pulse Oximetry 96 96 96 Oxygen Delivery Fraction of Inspired Oxygen 10/11/24 01:15 10/11/24 01:30 10/11/24 01:43 Temperature Pulse Rate 64 61 62 Respiratory Rate 14 14 Blood Pressure Pulse Oximetry 96 96 96 Oxygen Delivery Mechanical Ventilation Fraction of Inspired Oxygen 30 10/11/24 01:43 10/11/24 01:45 10/11/24 01:54 Temperature Pulse Rate 62 63 63 Respiratory Rate 16 14 14 Blood Pressure Pulse Oximetry 96 Oxygen Delivery Fraction of Inspired Oxygen 10/11/24 02:00 10/11/24 02:00 10/11/24 02:00 Temperature Pulse Rate 61 61 61 Respiratory Rate 14 Blood Pressure 94/51 L 94/51 L Pulse Oximetry 96 Oxygen Delivery Fraction of Inspired Oxygen 10/11/24 02:00 10/11/24 02:00 10/11/24 02:00 Temperature Pulse Rate 61 61 61 Respiratory Rate 14 14 Blood Pressure 94/51 L Pulse Oximetry Oxygen Delivery Fraction of Inspired Oxygen 10/11/24 02:00 10/11/24 02:00 10/11/24 02:15 Temperature Pulse Rate 61 63 60 Respiratory Rate 14 Blood Pressure 94/51 L 97/52 L Pulse Oximetry 96 Oxygen Delivery Fraction of Inspired Oxygen 10/11/24 02:15 10/11/24 02:30 10/11/24 02:45 Temperature Pulse Rate 61 59 L 62 Respiratory Rate 14 14 14 Blood Pressure Pulse Oximetry 96 96 96 Oxygen Delivery Fraction of Inspired Oxygen 10/11/24 03:00 10/11/24 03:15 10/11/24 03:23 Temperature Pulse Rate 59 L 62 60 Respiratory Rate 14 14 Blood Pressure 100/55 L Pulse Oximetry 96 96 Oxygen Delivery Fraction of Inspired Oxygen 10/11/24 03:23 10/11/24 03:30 10/11/24 03:45 Temperature Pulse Rate 60 72 61 Respiratory Rate 14 14 Blood Pressure 100/55 L Pulse Oximetry 95 96 Oxygen Delivery Fraction of Inspired Oxygen 10/11/24 04:00 10/11/24 04:00 10/11/24 04:00 Temperature 36.6 C Pulse Rate 61 61 Respiratory Rate 14 14 Blood Pressure 101/64 Pulse Oximetry 96 96 Oxygen Delivery Mechanical Ventilation Fraction of Inspired Oxygen 30 30 10/11/24 04:00 10/11/24 04:00 10/11/24 04:00 Temperature Pulse Rate 63 61 61 Respiratory Rate 14 14 Blood Pressure Pulse Oximetry Oxygen Delivery Fraction of Inspired Oxygen 10/11/24 04:00 10/11/24 04:00 10/11/24 04:00 Temperature Pulse Rate 61 61 66 Respiratory Rate 14 Blood Pressure 101/64 101/64 Pulse Oximetry 96 Oxygen Delivery Fraction of Inspired Oxygen 10/11/24 04:15 10/11/24 04:21 10/11/24 04:30 Temperature Pulse Rate 59 L 57 L 58 L Respiratory Rate 14 14 Blood Pressure 102/55 L Pulse Oximetry 96 96 Oxygen Delivery Fraction of Inspired Oxygen 10/11/24 04:43 10/11/24 05:56 10/11/24 05:56 Temperature Pulse Rate 71 63 63 Respiratory Rate 14 14 Blood Pressure Pulse Oximetry 96 Oxygen Delivery Mechanical Ventilation Fraction of Inspired Oxygen 30 10/11/24 05:57 10/11/24 05:57 10/11/24 06:00 Temperature Pulse Rate 64 64 63 Respiratory Rate 14 14 Blood Pressure Pulse Oximetry Oxygen Delivery Fraction of Inspired Oxygen 10/11/24 06:00 10/11/24 06:00 10/11/24 06:00 Temperature Pulse Rate 63 63 63 Respiratory Rate 14 Blood Pressure 94/53 L 94/53 L 94/53 L Pulse Oximetry 97 Oxygen Delivery Fraction of Inspired Oxygen 10/11/24 06:00 10/11/24 06:15 10/11/24 06:15 Temperature Pulse Rate 63 62 62 Respiratory Rate 14 Blood Pressure 94/53 L 94/53 L Pulse Oximetry Oxygen Delivery Fraction of Inspired Oxygen 10/11/24 07:53 10/11/24 07:53 10/11/24 08:00 Temperature 37.0 C Pulse Rate 65 65 65 Respiratory Rate 14 14 Blood Pressure 94/54 L Pulse Oximetry 97 97 Oxygen Delivery Mechanical Ventilation Fraction of Inspired Oxygen 30 10/11/24 08:00 10/11/24 08:17 10/11/24 09:06 Temperature Pulse Rate 60 61 65 Respiratory Rate 14 Blood Pressure 96/54 L 107/59 L Pulse Oximetry Oxygen Delivery Fraction of Inspired Oxygen Intake/Output Intake/Output: Intake & Output 10/08/24 10/09/24 10/11/24 10/11/24 23:59 23:59 00:59 23:59 Intake Total 1379.6 2539.6 2062.7 647.6 Output Total 0 100 0 Balance 1379.6 2539.6 1962.7 647.6 Meds/Results Medications: Active Medications Generic Name Dose Route Start Last Admin Trade Name Freq PRN Reason Stop Dose Admin Acetaminophen 650 mg 10/08/24 20:49 Acetaminophen 650 Mg Suppository RECTAL Q6H PRN Mild Pain (1-3) or Fever Albuterol/Ipratropium 3 ml 10/09/24 14:00 10/11/24 07:53 Ipratropium 0.5 Mg/Albuterol Sulfate 2.5 Mg Ampul.Neb 3 Ml INHALATION 3 ml Q6HRT CESAR Administration Allopurinol 100 mg 10/09/24 08:00 10/10/24 08:04 Allopurinol 100 Mg Tablet PO 100 mg DAILY@0800 CESAR Administration Apixaban 2.5 mg 10/09/24 09:00 10/10/24 20:28 Apixaban 2.5 Mg Tablet PO 2.5 mg Q12HR CESAR Administration Atorvastatin Calcium 10 mg 10/09/24 09:00 10/10/24 08:04 Atorvastatin 10 Mg Tablet PO 10 mg DAILY CESAR Administration Budesonide 0.5 mg 10/09/24 20:00 10/11/24 07:53 Budesonide Respule Neb 0.5 Mg/2 Ml Amp INHALATION 0.5 mg Q12HRT CESAR Administration Dextrose 12.5 gm 10/08/24 22:06 Dextrose 50% 25 Gm/50 Ml Syringe IV PUSH PRN PRN Hypoglycemia Protocol Glucagon 1 mg 10/08/24 22:06 Glucagon For Inj 1 Mg Vial IM PRN PRN Hypoglycemia Protocol Glucose 15 gm 10/08/24 22:06 Glucose Oral Gel 15 Gm Of Glucse In 37.5 Gm Tube PO PRN PRN Hypoglycemia Protocol Hydrocortisone Sodium Succinate 100 mg 10/09/24 14:30 10/11/24 05:53 Hydrocortisone Sodium Succinate 100 Mg/2 Ml Vial IV PUSH 100 mg Q8HR CESAR Administration Ceftriaxone Sodium 1 gm in 50 mls @ 100 mls/hr 10/09/24 12:00 10/10/24 12:28 Rocephin 1 Gm/Ns 50 Ml IVPB Infused Q24H CESAR Infusion Azithromycin 500 mg in 250 mls @ 250 mls/hr 10/09/24 12:00 10/10/24 12:57 Zithromax IVPB Infused Q24H CESAR Infusion Dextrose 1,000 mls @ 100 mls/hr 10/08/24 22:06 Dextrose 5% 1,000 Ml IVPB PRN PRN Hypoglycemia Protocol Vasopressin 100 units/ 100 mls @ 0 mls/hr 10/08/24 22:45 10/11/24 09:06 Dextrose IV CONT 0.04 units/min .Q0M CESAR 2.4 mls/hr Titration Protocol 0 UNITS/MIN Epinephrine HCl 4 mg/ Dextrose 254 mls @ 0 mls/hr 10/09/24 19:20 10/11/24 06:00 IV CONT 0 mcg/min .Q0M CESAR 0 mls/hr Titration Protocol 0 MCG/MIN Norepinephrine Bitartrate 16 250 mls @ 21.563 mls/hr 10/09/24 19:25 10/11/24 06:15 mg/ Dextrose IV CONT 23 mcg/min .[id number] CESRA 21.56 mls/hr Titration Protocol 23 MCG/MIN Fentanyl Citrate 2,500 mcg in 250 mls @ 5 mls/hr 10/10/24 00:10 10/11/24 06:15 Fentanyl 2,500 Mcg/Ns 250 Ml IV CONT 50 mcg/hr .Q50H CESAR 5 mls/hr Titration Protocol 50 MCG/HR Midazolam HCl 100 mg in 100 mls @ 2 mls/hr 10/10/24 00:10 10/11/24 05:57 Versed 100 Mg/Ns 100 Ml IV CONT 2 mg/hr .Q50H CESAR 2 mls/hr Administration Protocol 2 MG/HR Albumin Human 50 mls @ 999 mls/hr 10/11/24 06:09 Albutein IVPB 10/12/24 06:08 Q10M PRN HYPOTENSION Vancomycin HCl 1,000 mg in 250 mls @ 250 mls/hr 10/11/24 18:00 Vancomycin 1,000 Mg/Ns 250 Ml IVPB 10/11/24 18:59 ONCE ONE Insulin Aspart 3 - 6 units 10/09/24 00:00 10/11/24 05:54 Insulin Aspart (*Bkc) 100 Units/Ml SUB-Q 4 units Q6HR CESAR Administration Protocol Multi-Ingred Cream/Lotion/Oil/Oint 1 applic 10/10/24 09:00 10/10/24 20:28 Mineral Oil/White Petrolatum Ointment EACH EYE 1 applic Q12HR CESAR Administration Mupirocin 1 applic 10/09/24 09:00 10/10/24 20:28 Mupirocin 2% Oint 22 Gm Tube EACH NARE 1 applic Q12HR CESAR Administration Oseltamivir Phosphate 30 mg 10/11/24 21:00 10/09/24 21:00 Oseltamivir Phosphate 30 Mg Capsule PO 10/12/24 21:01 Not Given [id number] CESAR Pantoprazole Sodium 40 mg 10/09/24 13:45 10/10/24 08:03 Pantoprazole Sodium Iv 40 Mg Vial IV PUSH 40 mg QAM CESAR Administration Fluticasone/Salmeterol 2 puff 10/09/24 08:00 10/09/24 09:26 Fluticasone/Salmeterol 115-21 Mcg Inhaler 1 Puff INHALATION Not Given Q12HRT CESAR Sevelamer Carbonate 1,600 mg 10/09/24 08:00 10/10/24 17:23 Sevelamer Carbonate 800 Mg Tablet PO 1,600 mg TIDWM CESAR Administration Sodium Chloride 10 ml 10/09/24 14:00 10/11/24 05:54 Central Line Flush IV PUSH 10 ml Q8HR CESAR Administration Sodium Chloride 20 ml 10/09/24 06:24 Central Line Flush IV PUSH PRN PRN after blood draws Sodium Zirconium Cyclosilicate 10 gm 10/09/24 22:00 10/10/24 20:40 Sodium Zirconium Cyclosilicate 10 Gm Powd.Pack PO 10/11/24 21:59 10 gm TID@1000,1500,2200 CESAR Administration Sodium Zirconium Cyclosilicate 10 gm 10/10/24 07:25 10/10/24 08:05 Sodium Zirconium Cyclosilicate 10 Gm Powd.Pack PO 10/11/24 09:01 10 gm DAILY CESAR Administration Vancomycin HCl 1 each 10/08/24 23:03 Vancomycin For Hemodialysis IVPB PRN PRN Vancomycin Protocol Radiology Results: ITS Impressions Pelvis X-Ray 10/08/24 22:22 IMPRESSION: As above. Head CT 10/08/24 23:18 IMPRESSION: No acute intracranial findings. Chest CT 10/08/24 23:27 IMPRESSION: 1. Interstitial thickening in the lower lobes which may indicate pneumonitis. Edema is less likely. 2. Cardiomegaly. 3. Cholelithiasis 4. Splenic cysts unchanged. Chest X-Ray 10/11/24 06:22 Impression: Moderate pulmonary edema and bibasilar atelectasis versus bilateral pneumonia. Findings are worsened from prior exam.. Correlate clinically. Small bilateral pleural effusions. Support tubes, as above. Labs Labs: Laboratory Results - last 24 hr 10/10/24 10/10/24 10/10/24 11:55 13:11 17:17 WBC RBC Hgb Hct MCV MCH MCHC RDW Plt Count MPV Immature Gran % (Auto) Neut % (Auto) Lymph % (Auto) Hubbard % (Auto) Eos % (Auto) Baso % (Auto) Lymph # (Auto) Hubbard # (Auto) Eos # (Auto) Baso # (Auto) Abs Immat Gran (auto) Absolute Neuts (auto) Absolute Nucleated RBC Nucleated RBC % Puncture Site ABG pH ABG pCO2 ABG pO2 ABG PO2/FiO2 Ratio ABG HCO3 ABG O2 Saturation ABG O2 Content ABG Base Excess A-a Gradient Oxyhemoglobin Carboxyhemoglobin Methemoglobin Reduced Hemoglobin Total Hemoglobin O2 Delivery Device O2 Liters/Min Minute Volume Vent Rate Vent Mode FiO2 Tidal Volume PEEP Peak Inspir Pressure Pressure Support Sodium 133 L Potassium 5.4 H Chloride 90 L Carbon Dioxide 27 Anion Gap 16 H BUN 48 H Creatinine 5.46 H Estim Creat Clear Calc 10 Estimated GFR 10 L Glucose 237 H POC Capillary Glucose 202 H 241 H Lactic Acid Calcium 6.8 L Phosphorus Magnesium Total Bilirubin AST ALT Alkaline Phosphatase Total Protein Albumin Random Vancomycin Hep Bs Antigen Hep Bs Antibody 10/10/24 10/10/24 10/11/24 20:01 23:47 04:43 WBC RBC Hgb Hct MCV MCH MCHC RDW Plt Count MPV Immature Gran % (Auto) Neut % (Auto) Lymph % (Auto) Hubbard % (Auto) Eos % (Auto) Baso % (Auto) Lymph # (Auto) Hubbard # (Auto) Eos # (Auto) Baso # (Auto) Abs Immat Gran (auto) Absolute Neuts (auto) Absolute Nucleated RBC Nucleated RBC % Puncture Site Artline ABG pH 7.370 ABG pCO2 44.7 ABG pO2 72.8 L ABG PO2/FiO2 Ratio 2.43 ABG HCO3 25.3 ABG O2 Saturation 94.2 L ABG O2 Content 19.1 ABG Base Excess -0.3 A-a Gradient 88.6 Oxyhemoglobin 91.9 Carboxyhemoglobin 1.4 Methemoglobin 0.3 Reduced Hemoglobin 6.4 H Total Hemoglobin 14.8 O2 Delivery Device Ventilator O2 Liters/Min Not Reportable Minute Volume Not Reportable Vent Rate 14 Vent Mode Cmv FiO2 30 Tidal Volume 500 PEEP 5 Peak Inspir Pressure Not Reportable Pressure Support Not Reportable Sodium 131 L Potassium 5.1 H Chloride 89 L Carbon Dioxide 28 Anion Gap 14 H BUN 51 H Creatinine 5.60 H Estim Creat Clear Calc 10 Estimated GFR 10 L Glucose 250 H POC Capillary Glucose 248 H Lactic Acid Calcium 6.6 L Phosphorus Magnesium Total Bilirubin AST ALT Alkaline Phosphatase Total Protein Albumin Random Vancomycin Hep Bs Antigen Hep Bs Antibody 10/11/24 10/11/24 05:32 05:33 WBC 17.4 H RBC 4.56 L Hgb 14.3 Hct 43.9 MCV 96.3 MCH 31.4 MCHC 32.6 RDW 16.2 H Plt Count 108 L MPV 11.4 H Immature Gran % (Auto) 0.7 H Neut % (Auto) 92.1 H Lymph % (Auto) 3.3 L Hubbard % (Auto) 3.7 Eos % (Auto) 0.0 Baso % (Auto) 0.2 Lymph # (Auto) 0.57 L Hubbard # (Auto) 0.6 Eos # (Auto) 0.0 Baso # (Auto) 0.0 Abs Immat Gran (auto) 0.12 H Absolute Neuts (auto) 16.0 H Absolute Nucleated RBC 0.020 H Nucleated RBC % 0.1 Puncture Site ABG pH ABG pCO2 ABG pO2 ABG PO2/FiO2 Ratio ABG HCO3 ABG O2 Saturation ABG O2 Content ABG Base Excess A-a Gradient Oxyhemoglobin Carboxyhemoglobin Methemoglobin Reduced Hemoglobin Total Hemoglobin O2 Delivery Device O2 Liters/Min Minute Volume Vent Rate Vent Mode FiO2 Tidal Volume PEEP Peak Inspir Pressure Pressure Support Sodium 132 L Potassium 5.2 H Chloride 89 L Carbon Dioxide 27 Anion Gap 16 H BUN 57 H Creatinine 6.17 H Estim Creat Clear Calc 9 Estimated GFR 9 L Glucose 240 H POC Capillary Glucose 256 H Lactic Acid 2.1 H Calcium 6.5 L Phosphorus 5.4 H Magnesium 2.0 Total Bilirubin 1.8 H AST 29 ALT 15 Alkaline Phosphatase 68 Total Protein 7.0 Albumin 3.4 L Random Vancomycin 15.0 Hep Bs Antigen Negative Hep Bs Antibody Negative
[2024-10-11] MEDS: ALBUMIN HUMAN 25% 12.5 GM/50ML 50 ML IVPB ×2 (09:30→10:00)
--- NOTE | 2024-10-11 10:10 | P.PNNP_ITS ---
Progress Note: A&P Assessment and Plan (1) End-stage renal disease (ESRD): Code(s): N18.6 - End stage renal disease Status: Chronic Assessment and Plan: * HD today * continue Fri/Fri/Friday dialysis schedule next week while hospitalized * follow electrolytes, volume status, and clearance (2) Septic shock: Code(s): A41.9 - Sepsis, unspecified organism; R65.21 - Severe sepsis with septic shock Status: Acute Assessment and Plan: * as noted on presentation - AMS + acute on chronic hypotension + lactic acidosis * complicated by chronic hypotension at baseline * presumed to be secondary to bacteremia, pneumonia and influenza * culture data noted: * blood cultures (on 10/08) wtih Streptococcus mitis * blood cultures (on 10/10) with no growth to date * s/p IVFs and IV albumin for volume expansion * requiring vasopressor therapy to maintain MAP/blood pressure * wean as tolerated * Echo ordered * stress dose steroids * follow hemodynamics (3) Acute respiratory failure: Code(s): J96.00 - Acute respiratory failure, unspecified whether with hypoxia or hypercapnia Status: Acute Assessment and Plan: * multifactorial: * pneumonia * altered mental status * need for airway protection * fluid * intubated on 10/08 in ER * on bronchodilators * fluid removal with dialysis as tolerated (4) Bacteremia: Code(s): R78.81 - Bacteremia Status: Acute Assessment and Plan: * 10/08 blood cultures with Streptococcus mitis * 10/10 repeat set of blood culture with growth to date * on antibiotics * see #2 (5) Influenza A: Code(s): J10.1 - Influenza due to other identified influenza virus with other respiratory manifestations Status: Acute Assessment and Plan: * as noted by testing in ER * on Tamiflu (renally dosed) * respiratory isolation (6) Pneumonia: Code(s): J18.9 - Pneumonia, unspecified organism Status: Acute Assessment and Plan: * suggested by recent imaging (CXR + CT scan) * on antibiotics (7) Altered mental status: Code(s): R41.82 - Altered mental status, unspecified Status: Acute Assessment and Plan: * noted in ER prior to intubatnio * presumably due to acute illness (infection/sepsis/shock...etc) * negative head CT * reassess once extubated (8) Anemia: Qualifiers: Anemia type: unspecified type Qualified Code(s): D64.9 - Anemia, unspecified Code(s): D64.9 - Anemia, unspecified Status: Chronic Assessment and Plan: * due to ESRD * hold Retacrit since Hgb > 10 * follow trend of H/H (9) Diabetes: Qualifiers: Diabetes mellitus type: type 2 Diabetes mellitus terminal gauger insulin use: without terminal gauger use Diabetes mellitus complication status: with kidney complications Diabetes mellitus complication detail: with chronic kidney disease Chronic kidney disease stage: on chronic dialysis Qualified Code(s): E 11.22 - Type 2 diabetes mellitus with diabetic chronic kidney disease; N18.6 - End stage renal disease; Z99.2 - Dependence on renal dialysis Code(s): E11.9 - Type 2 diabetes mellitus without complications Status: Chronic Assessment and Plan: * follow accu-cheks * glycemic control per hospitalist/meat clerk Will continue to follow. L Subjective Date/time seen: 10/11/24 10:10 Interval history: Follow-up for end stage renal disease on hemodialysis. Tolerated dialysis treatment at the time of my visit (seen on HD at 10:00AM); remains intubated/sedated and on mechanical ventilation; continues to require vasopressor therapy (vasopressin weaned off but remains on levophed) to maintain MAP/blood pressure; no other acute issues/events overnight or earlier this morning. Exam 2 Narrative: General: elderly male intubated/sedated and on mechanical ventiation Heart: IRRR,normal S1 and S2; no rub Lungs: coarse breath sounds Abdomen: soft, nontender, nondistended, positive bowel sounds Extremities: no cyanosis or clubbing; chonic edema Skin: warm and dry Objective Data Vital Signs Vital Signs: Vital Signs Temp Pulse Resp BP Pulse Ox O2 Del Method FiO2 10/11/24 10:00 99.0 F 62 14 105/57 L 96 10/11/24 09:45 63 104/56 L 10/11/24 09:30 61 111/59 L 10/11/24 09:25 65 111/59 L 10/11/24 09:15 98 F 69 14 109/59 L 96 10/11/24 09:15 30 10/11/24 09:06 65 107/59 L 10/11/24 08:17 61 14 10/11/24 08:00 30 10/11/24 08:00 Mechanical Ventilation 30 10/11/24 08:00 60 10/11/24 08:00 60 96/54 L 10/11/24 08:00 60 14 10/11/24 08:00 60 96/54 L 10/11/24 08:00 60 14 10/11/24 08:00 60 96/54 L 10/11/24 08:00 98.6 F 65 14 94/54 L 97 10/11/24 07:53 65 14 10/11/24 07:53 65 97 Mechanical Ventilation 30 10/11/24 06:15 62 14 10/11/24 06:15 62 94/53 L 10/11/24 06:00 63 94/53 L 10/11/24 06:00 63 94/53 L 10/11/24 06:00 63 94/53 L 10/11/24 06:00 63 14 94/53 L 97 10/11/24 06:00 63 10/11/24 05:57 64 14 10/11/24 05:57 64 14 10/11/24 05:56 63 14 10/11/24 05:56 63 14 10/11/24 04:43 71 96 Mechanical Ventilation 30 10/11/24 04:30 58 L 14 96 10/11/24 04:21 57 L 102/55 L 10/11/24 04:15 59 L 14 96 10/11/24 04:00 66 14 96 10/11/24 04:00 61 101/64 10/11/24 04:00 61 101/64 10/11/24 04:00 61 14 10/11/24 04:00 61 14 10/11/24 04:00 63 10/11/24 04:00 61 14 96 Mechanical Ventilation 30 10/11/24 04:00 97.8 F 61 14 101/64 96 10/11/24 04:00 30 10/11/24 03:45 61 14 96 10/11/24 03:30 72 14 95 10/11/24 03:23 60 100/55 L 10/11/24 03:23 60 100/55 L 10/11/24 03:15 62 14 96 10/11/24 03:00 59 L 14 96 10/11/24 02:45 62 14 96 10/11/24 02:30 59 L 14 96 10/11/24 02:15 61 14 96 10/11/24 02:15 60 97/52 L 10/11/24 02:00 63 14 96 10/11/24 02:00 61 94/51 L 10/11/24 02:00 61 94/51 L 10/11/24 02:00 61 14 10/11/24 02:00 61 14 10/11/24 02:00 61 94/51 L 10/11/24 02:00 61 14 94/51 L 96 10/11/24 02:00 61 10/11/24 01:54 63 14 10/11/24 01:45 63 14 96 10/11/24 01:43 62 16 10/11/24 01:43 62 96 Mechanical Ventilation 30 10/11/24 01:30 61 14 96 10/11/24 01:15 64 14 96 10/11/24 01:00 63 14 96 10/11/24 00:45 64 13 96 10/11/24 00:30 67 14 96 10/11/24 00:15 65 14 96 10/11/24 00:00 96 10/11/24 00:00 98.3 F 74 14 90/48 L 96 10/11/24 00:00 30 10/11/24 00:00 71 10/11/24 00:00 74 14 96 Mechanical Ventilation 10/11/24 00:00 74 90/48 L 10/11/24 00:00 74 90/48 L 10/11/24 00:00 74 14 10/11/24 00:00 74 14 10/11/24 00:00 74 90/48 L 10/10/24 23:45 71 14 97 10/10/24 23:30 67 15 97 10/10/24 23:15 66 14 97 10/10/24 23:00 64 14 97 10/10/24 22:45 68 14 97 10/10/24 22:30 63 14 97 10/10/24 22:30 62 109/53 L 10/10/24 22:29 66 96 Mechanical Ventilation 30 10/10/24 22:15 63 14 97 10/10/24 22:00 65 14 97 10/10/24 22:00 59 L 111/54 L 10/10/24 22:00 59 L 14 111/54 L 97 10/10/24 22:00 59 L 10/10/24 22:00 62 111/54 L 10/10/24 22:00 62 14 10/10/24 22:00 62 14 10/10/24 22:00 62 111/54 L 10/10/24 21:45 58 L 14 98 10/10/24 21:30 60 14 98 10/10/24 21:15 58 L 14 97 10/10/24 21:00 58 L 14 97 10/10/24 20:45 66 14 97 10/10/24 20:40 61 123/59 L 10/10/24 20:30 58 L 14 97 10/10/24 20:15 55 L 14 97 10/10/24 20:06 56 L 14 10/10/24 20:00 53 L 14 97 10/10/24 20:00 61 127/61 10/10/24 20:00 61 14 97 Mechanical Ventilation 30 10/10/24 20:00 97.8 F 61 14 127/61 97 10/10/24 20:00 30 10/10/24 20:00 54 L 10/10/24 20:00 61 127/61 10/10/24 20:00 61 14 10/10/24 20:00 61 14 10/10/24 20:00 61 127/61 10/10/24 19:47 57 L 14 10/10/24 19:47 57 L 97 Mechanical Ventilation 30 10/10/24 19:45 62 14 97 10/10/24 19:30 56 L 14 96 10/10/24 19:15 57 L 14 97 Intake/Output Intake/Output: Intake & Output 10/08/24 10/09/24 10/11/24 10/11/24 23:59 23:59 00:59 23:59 Intake Total 1379.6 2539.6 2062.7 1444.9 Output Total 0 100 3000 Balance 1379.6 2539.6 1962.7 -1555.1 Meds/Results Medications: Active Medications Generic Name Dose Route Start Last Admin Trade Name Freq PRN Reason Stop Dose Admin Acetaminophen 650 mg 10/08/24 20:49 Acetaminophen 650 Mg Suppository RECTAL Q6H PRN Mild Pain (1-3) or Fever Albuterol/Ipratropium 3 ml 10/09/24 14:00 10/11/24 07:53 Ipratropium 0.5 Mg/Albuterol Sulfate 2.5 Mg Ampul.Neb 3 Ml INHALATION 3 ml Q6HRT CESAR Administration Allopurinol 100 mg 10/09/24 08:00 10/11/24 13:16 Allopurinol 100 Mg Tablet PO 100 mg DAILY@0800 CESAR Administration Apixaban 2.5 mg 10/09/24 09:00 10/11/24 13:16 Apixaban 2.5 Mg Tablet PO 2.5 mg Q12HR CESAR Administration Atorvastatin Calcium 10 mg 10/09/24 09:00 10/11/24 13:16 Atorvastatin 10 Mg Tablet PO 10 mg DAILY CESAR Administration Budesonide 0.5 mg 10/09/24 20:00 10/11/24 07:53 Budesonide Respule Neb 0.5 Mg/2 Ml Amp INHALATION 0.5 mg Q12HRT CESAR Administration Dextrose 12.5 gm 10/08/24 22:06 Dextrose 50% 25 Gm/50 Ml Syringe IV PUSH PRN PRN Hypoglycemia Protocol Glucagon 1 mg 10/08/24 22:06 Glucagon For Inj 1 Mg Vial IM PRN PRN Hypoglycemia Protocol Glucose 15 gm 10/08/24 22:06 Glucose Oral Gel 15 Gm Of Glucse In 37.5 Gm Tube PO PRN PRN Hypoglycemia Protocol Hydrocortisone Sodium Succinate 100 mg 10/09/24 14:30 10/11/24 13:16 Hydrocortisone Sodium Succinate 100 Mg/2 Ml Vial IV PUSH 100 mg Q8HR CESAR Administration Ceftriaxone Sodium 1 gm in 50 mls @ 100 mls/hr 10/09/24 12:00 10/11/24 13:43 Rocephin 1 Gm/Ns 50 Ml IVPB Infused Q24H CESAR Infusion Azithromycin 500 mg in 250 mls @ 250 mls/hr 10/09/24 12:00 10/11/24 14:21 Zithromax IVPB 10/12/24 12:59 250 mls/hr Q24H CESAR Administration Dextrose 1,000 mls @ 100 mls/hr 10/08/24 22:06 Dextrose 5% 1,000 Ml IVPB PRN PRN Hypoglycemia Protocol Vasopressin 100 units/ 100 mls @ 2.4 mls/hr 10/08/24 22:45 10/11/24 16:00 Dextrose IV CONT 0.04 units/min .[id number] CESAR 2.4 mls/hr Titration Protocol 0.04 UNITS/MIN Norepinephrine Bitartrate 16 250 mls @ 15 mls/hr 10/09/24 19:25 10/11/24 17:21 mg/ Dextrose IV CONT 16 mcg/min .[id number] CESAR 15 mls/hr Titration Protocol 16 MCG/MIN Fentanyl Citrate 2,500 mcg in 250 mls @ 5 mls/hr 10/10/24 00:10 10/11/24 16:00 Fentanyl 2,500 Mcg/Ns 250 Ml IV CONT 50 mcg/hr .Q50H CESAR 5 mls/hr Titration Protocol 50 MCG/HR Midazolam HCl 100 mg in 100 mls @ 2 mls/hr 10/10/24 00:10 10/11/24 16:00 Versed 100 Mg/Ns 100 Ml IV CONT 2 mg/hr .Q50H CESAR 2 mls/hr Titration Protocol 2 MG/HR Albumin Human 50 mls @ 999 mls/hr 10/11/24 06:09 10/11/24 10:00 Albutein IVPB 10/12/24 06:08 830 mls/hr Q10M PRN Administration HYPOTENSION Insulin Aspart 4 - 8 units 10/11/24 12:00 10/11/24 16:30 Insulin Aspart (*Bkc) 100 Units/Ml SUB-Q 4 units Q4H CESAR Administration Protocol Insulin Glargine 15 units 10/11/24 09:10 10/11/24 10:24 Insulin Glargine (*Bkc) 100 Units/Ml SUB-Q 15 units QAM CESAR Administration Multi-Ingred Cream/Lotion/Oil/Oint 1 applic 10/10/24 09:00 10/11/24 10:24 Mineral Oil/White Petrolatum Ointment EACH EYE 1 applic Q12HR CESAR Administration Mupirocin 1 applic 10/09/24 09:00 10/11/24 10:24 Mupirocin 2% Oint 22 Gm Tube EACH NARE 1 applic Q12HR CESAR Administration Oseltamivir Phosphate 30 mg 10/11/24 21:00 10/09/24 21:00 Oseltamivir Phosphate 30 Mg Capsule PO 10/12/24 21:01 Not Given [id number] CESAR Pantoprazole Sodium 40 mg 10/09/24 13:45 10/11/24 13:16 Pantoprazole Sodium Iv 40 Mg Vial IV PUSH 40 mg QAM CESAR Administration Perflutren Lipid Microsphere 0 ml 10/11/24 09:10 Perflutren Lipid Microspheres 1.5 Ml Vial Diluted To 10 Ml Total Volume IV PUSH 10/14/24 09:10 ONCE PRN adequate visualization Protocol Fluticasone/Salmeterol 2 puff 10/09/24 08:00 10/09/24 09:26 Fluticasone/Salmeterol 115-21 Mcg Inhaler 1 Puff INHALATION Not Given Q12HRT ECSAR Sevelamer Carbonate 1,600 mg 10/09/24 08:00 10/11/24 17:17 Sevelamer Carbonate 800 Mg Tablet PO 1,600 mg TIDWM CESAR Administration Sodium Chloride 10 ml 10/09/24 14:00 10/11/24 13:16 Central Line Flush IV PUSH 10 ml Q8HR CESAR Administration Sodium Chloride 20 ml 10/09/24 06:24 Central Line Flush IV PUSH PRN PRN after blood draws Vancomycin HCl 1 each 10/08/24 23:03 Vancomycin For Hemodialysis IVPB PRN PRN Vancomycin Protocol Radiology Results: ITS Impressions Pelvis X-Ray 10/08/24 22:22 IMPRESSION: As above. Head CT 10/08/24 23:18 IMPRESSION: No acute intracranial findings. Chest CT 10/08/24 23:27 IMPRESSION: 1. Interstitial thickening in the lower lobes which may indicate pneumonitis. Edema is less likely. 2. Cardiomegaly. 3. Cholelithiasis 4. Splenic cysts unchanged. Chest X-Ray 10/11/24 06:22 Impression: Moderate pulmonary edema and bibasilar atelectasis versus bilateral pneumonia. Findings are worsened from prior exam.. Correlate clinically. Small bilateral pleural effusions. Support tubes, as above. Labs Labs: Laboratory Tests 10/11/24 05:33 10/11/24 05:33 Lactic Acid 2.1 H Calcium 6.5 L Phosphorus 5.4 H Magnesium 2.0 Total Bilirubin 1.8 H AST 29 ALT 15 Alkaline Phosphatase 68 Total Protein 7.0 Albumin 3.4 L Random Vancomycin 15.0 Hep Bs Antigen Negative Hep Bs Antibody Negative Microbiology 10/10/24 09:48 Blood Blood Culture - Preliminary 10/10/24 09:48 Blood Blood Culture - Preliminary
[2024-10-11] MEDS: INSULIN GLARGINE (*BKC) 100 UNITS/ML 15 UNITS SUB-Q (10:24)
[2024-10-11] MEDS: MINERAL OIL/WHITE PETROLATUM OINTMENT 1 APPLIC EACH EYE ×2 (10:24→20:01)
[2024-10-11] MEDS: MUPIROCIN 2% OINT 22 GM TUBE 1 APPLIC EACH NARE ×2 (10:24→20:01)
[2024-10-11 11:44] LABS: Glucose Point of Care 176 mg/dl (65-105)
[2024-10-11] MEDS: CALCIUM GLUC 2,000 MG/NS 100ML 2,000 MG/100 ML BAG 100 MG IVPB (13:14)
[2024-10-11] MEDS: APIXABAN 2.5 MG TABLET PO ×2 (13:16→20:01)
[2024-10-11] MEDS: ATORVASTATIN 10 MG TABLET PO (13:16)
[2024-10-11] MEDS: allopurinoL 100 MG TABLET PO (13:16)
[2024-10-11] MEDS: PANTOPRAZOLE SODIUM IV 40 MG VIAL IV PUSH (13:16)
[2024-10-11] MEDS: SEVELAMER CARBONATE 800 MG TABLET 1600 MG PO ×2 (13:18→17:17)
[2024-10-11] MEDS: AZITHROMYCIN 500 MG/NS 250 ML 500 MG/250 ML BAG 250 MG IVPB (14:21)
[2024-10-11] MEDS: NOREPINEPHRINE BITARTRATE 16 MG in DEXTROSE 5% IN WATER 234 ML 15.94 MG IV CONT (15:46)
[2024-10-11 16:24] LABS: Glucose Point of Care 248 mg/dl (65-105)
[2024-10-11] MEDS: VANCOMYCIN 1,000 MG/NS 250 ML 1,000 MG/250 ML BAG 250 MG IVPB (17:17)
--- NOTE | 2024-10-11 18:49 | P.PNIM_ITS ---
Progress Note: A&P Assessment and Plan (1) Sepsis: Code(s): A41.9 - Sepsis, unspecified organism Status: Acute (2) Influenza: Code(s): J11.1 - Influenza due to unidentified influenza virus with other respiratory manifestations Status: Acute (3) Pneumonia: Code(s): J18.9 - Pneumonia, unspecified organism Status: Acute (4) Altered mental status: Code(s): R41.82 - Altered mental status, unspecified Status: Acute (5) End-stage renal disease on hemodialysis: Code(s): N18.6 - End stage renal disease; Z99.2 - Dependence on renal dialysis Status: Acute (6) Type 2 diabetes mellitus with diabetic neuropathy: Qualifiers: Diabetes mellitus salvage determiner insulin use: without salvage determiner use Qualified Code(s): E11.40 - Type 2 diabetes mellitus with diabetic neuropathy, unspecified Code(s): E11.40 - Type 2 diabetes mellitus with diabetic neuropathy, unspecified Status: Chronic Plan The patient presented to the emergency department for evaluation of altered mental status following dialysis as detailed in HPI. Labs, imaging, EKG, and all reports were personally reviewed. He meets sepsis criteria with hypotension, low-grade fever, bandemia, lactic acidosis, and altered mental status in the setting of infection. He remained hypotensive following a 1.5 L normal saline bolus (more fluids were not given due to his end-stage renal disease) and he has been started on vasopressors with a target MAP of at least 65. He tested positive for influenza A and chest x-ray shows findings of possible pneumonia for which he has been started on oseltamivir and azithromycin, ceftriaxone, and vancomycin. MRSA nasal screen pending. Sputum culture ordered. There were no reports of obvious focal deficits on exam in the ED and his altered mental status may very well be related to sepsis, influenza, and hypotension. Brain CT was without acute findings. Initiate sliding scale insulin, Accu-Cheks, and hypoglycemic protocol. He will be due for dialysis on Friday. His medications will be reviewed and resumed as appropriate. Findings and treatment plan were discussed with the patient's . Questions were solicited and answered to satisfaction. The patient's medical management will be taken over by the hospitalist team in a.m. patient presented with hypotension and confusion, patient was intubated and on ventilator, patient is receiving IVF and on pressor, discussed with last model maker patient blood pressure is improving and his off pressors, patient is found to have Influenza A treated with Tamiflu patient is present in the room gave updates, patient is seen by last model maker and further recommendation to follow. Subjective Date/time seen: 10/11/24 18:49 Interval history: Altered mental status. H&P-Narrative: This is an 84-year-old male with end-stage renal disease on hemodialysis, congestive heart failure, pulmonary hypertension, type 2 diabetes mellitus, atrial fibrillation on anticoagulation, hypertension, chronic anemia, and other comorbidities who presented to the emergency department via EMS for evaluation of altered mental status after dialysis. He was intubated in the emergency department and the following history is obtained from the patient's as well as review of his electronic medical records. He went to dialysis at 05:00 and completed a session. His that time he has reportedly been increasingly confused, mumbling to himself and not making any sense. In the ED his only complaint was that of not feeling well but he did not elaborate. reports that he had a bit of a cough yesterday which she believes was nonproductive. There were no reports of fever, cold and flu symptoms, vomiting, or diarrhea. In the ED: Vital signs on arrival include a temperature of 99.8?, blood pressure 72/37, pulse 87, respiratory 22, SpO2 95%. Labs were significant for WBC count of 7.9 with 10 bands noted on manual differential, sodium 136, chloride 92, carbon dioxide 34, BUN 26, creatinine 3.68, lactic acid 2.9, calcium 7.9, total bilirubin 2.1. He tested positive for influenza A. Chest x-ray showed bilateral social pneumonitis versus pulmonary edema. Blood pressure continue to drift down words and he was given a 1500 mL bolus of normal saline without much improvement. The decision was made to put in the central line and start the patient on vasopressors however the patient had difficulties lying still for codey tral line placement and he was sedated and eventually intubated and he is being admitted to the ICU in this setting with hypotension, influenza, pneumonia, and altered mental status. patient presented with hypotension and confusion, patient was intubated and on ventilator, patient is receiving IVF and on pressor, discussed with last model maker patient blood pressure is improving and his off pressors, patient is found to have Influenza A treated with Tamiflu patient is present in the room gave updates, patient is seen by last model maker and further recommendation to follow. Review of Systems Review of Systems: ROS unobtainable: Yes unobtainable due to endotracheal tube Exam Narrative: Patient is comfortable, NAD HEENT: ET tube in place LUNGS:CTA HEART: RR S1S2 ABD: BS+, Soft and nontender Lower extremities: no edema SKIN: nonjaundiced Neuro: On vent and sedated Objective Data Vital Signs Vital Signs: Vital Signs - 24 hr 10/10/24 19:00 10/10/24 19:15 10/10/24 19:30 Temperature Pulse Rate 60 57 L 56 L Respiratory Rate 14 14 14 Blood Pressure Pulse Oximetry 97 97 96 Oxygen Delivery Fraction of Inspired Oxygen 10/10/24 19:45 10/10/24 19:47 10/10/24 19:47 Temperature Pulse Rate 62 57 L 57 L Respiratory Rate 14 14 Blood Pressure Pulse Oximetry 97 97 Oxygen Delivery Mechanical Ventilation Fraction of Inspired Oxygen 30 10/10/24 20:00 10/10/24 20:00 10/10/24 20:00 Temperature Pulse Rate 61 61 61 Respiratory Rate 14 14 Blood Pressure 127/61 Pulse Oximetry Oxygen Delivery Fraction of Inspired Oxygen 10/10/24 20:00 10/10/24 20:00 10/10/24 20:00 Temperature Pulse Rate 61 54 L Respiratory Rate Blood Pressure 127/61 Pulse Oximetry Oxygen Delivery Fraction of Inspired Oxygen 30 10/10/24 20:00 10/10/24 20:00 10/10/24 20:00 Temperature 36.6 C Pulse Rate 61 61 61 Respiratory Rate 14 14 Blood Pressure 127/61 127/61 Pulse Oximetry 97 97 Oxygen Delivery Mechanical Ventilation Fraction of Inspired Oxygen 30 10/10/24 20:00 10/10/24 20:06 10/10/24 20:15 Temperature Pulse Rate 53 L 56 L 55 L Respiratory Rate 14 14 14 Blood Pressure Pulse Oximetry 97 97 Oxygen Delivery Fraction of Inspired Oxygen 10/10/24 20:30 10/10/24 20:40 10/10/24 20:45 Temperature Pulse Rate 58 L 61 66 Respiratory Rate 14 14 Blood Pressure 123/59 L Pulse Oximetry 97 97 Oxygen Delivery Fraction of Inspired Oxygen 10/10/24 21:00 10/10/24 21:15 10/10/24 21:30 Temperature Pulse Rate 58 L 58 L 60 Respiratory Rate 14 14 14 Blood Pressure Pulse Oximetry 97 97 98 Oxygen Delivery Fraction of Inspired Oxygen 10/10/24 21:45 10/10/24 22:00 10/10/24 22:00 Temperature Pulse Rate 58 L 62 62 Respiratory Rate 14 14 Blood Pressure 111/54 L Pulse Oximetry 98 Oxygen Delivery Fraction of Inspired Oxygen 10/10/24 22:00 10/10/24 22:00 10/10/24 22:00 Temperature Pulse Rate 62 62 59 L Respiratory Rate 14 Blood Pressure 111/54 L Pulse Oximetry Oxygen Delivery Fraction of Inspired Oxygen 10/10/24 22:00 10/10/24 22:00 10/10/24 22:00 Temperature Pulse Rate 59 L 59 L 65 Respiratory Rate 14 14 Blood Pressure 111/54 L 111/54 L Pulse Oximetry 97 97 Oxygen Delivery Fraction of Inspired Oxygen 10/10/24 22:15 10/10/24 22:29 10/10/24 22:30 Temperature Pulse Rate 63 66 62 Respiratory Rate 14 Blood Pressure 109/53 L Pulse Oximetry 97 96 Oxygen Delivery Mechanical Ventilation Fraction of Inspired Oxygen 30 10/10/24 22:30 10/10/24 22:45 10/10/24 23:00 Temperature Pulse Rate 63 68 64 Respiratory Rate 14 14 14 Blood Pressure Pulse Oximetry 97 97 97 Oxygen Delivery Fraction of Inspired Oxygen 10/10/24 23:15 10/10/24 23:30 10/10/24 23:45 Temperature Pulse Rate 66 67 71 Respiratory Rate 14 15 14 Blood Pressure Pulse Oximetry 97 97 97 Oxygen Delivery Fraction of Inspired Oxygen 10/11/24 00:00 10/11/24 00:00 10/11/24 00:00 Temperature Pulse Rate 74 74 74 Respiratory Rate 14 14 Blood Pressure 90/48 L Pulse Oximetry Oxygen Delivery Fraction of Inspired Oxygen 10/11/24 00:00 10/11/24 00:00 10/11/24 00:00 Temperature Pulse Rate 74 74 74 Respiratory Rate 14 Blood Pressure 90/48 L 90/48 L Pulse Oximetry 96 Oxygen Delivery Mechanical Ventilation Fraction of Inspired Oxygen 30 10/11/24 00:00 10/11/24 00:00 10/11/24 00:00 Temperature 36.8 C Pulse Rate 71 74 Respiratory Rate 14 Blood Pressure 90/48 L Pulse Oximetry 96 Oxygen Delivery Fraction of Inspired Oxygen 30 10/11/24 00:00 10/11/24 00:15 10/11/24 00:30 Temperature Pulse Rate 65 67 Respiratory Rate 14 14 Blood Pressure Pulse Oximetry 96 96 96 Oxygen Delivery Fraction of Inspired Oxygen 10/11/24 00:45 10/11/24 01:00 10/11/24 01:15 Temperature Pulse Rate 64 63 64 Respiratory Rate 13 14 14 Blood Pressure Pulse Oximetry 96 96 96 Oxygen Delivery Fraction of Inspired Oxygen 10/11/24 01:30 10/11/24 01:43 10/11/24 01:43 Temperature Pulse Rate 61 62 62 Respiratory Rate 14 16 Blood Pressure Pulse Oximetry 96 96 Oxygen Delivery Mechanical Ventilation Fraction of Inspired Oxygen 30 10/11/24 01:45 10/11/24 01:54 10/11/24 02:00 Temperature Pulse Rate 63 63 61 Respiratory Rate 14 14 Blood Pressure Pulse Oximetry 96 Oxygen Delivery Fraction of Inspired Oxygen 10/11/24 02:00 10/11/24 02:00 10/11/24 02:00 Temperature Pulse Rate 61 61 61 Respiratory Rate 14 14 Blood Pressure 94/51 L 94/51 L Pulse Oximetry 96 Oxygen Delivery Fraction of Inspired Oxygen 10/11/24 02:00 10/11/24 02:00 10/11/24 02:00 Temperature Pulse Rate 61 61 61 Respiratory Rate 14 Blood Pressure 94/51 L 94/51 L Pulse Oximetry Oxygen Delivery Fraction of Inspired Oxygen 10/11/24 02:00 10/11/24 02:15 10/11/24 02:15 Temperature Pulse Rate 63 60 61 Respiratory Rate 14 14 Blood Pressure 97/52 L Pulse Oximetry 96 96 Oxygen Delivery Fraction of Inspired Oxygen 10/11/24 02:30 10/11/24 02:45 10/11/24 03:00 Temperature Pulse Rate 59 L 62 59 L Respiratory Rate 14 14 14 Blood Pressure Pulse Oximetry 96 96 96 Oxygen Delivery Fraction of Inspired Oxygen 10/11/24 03:15 10/11/24 03:23 10/11/24 03:23 Temperature Pulse Rate 62 60 60 Respiratory Rate 14 Blood Pressure 100/55 L 100/55 L Pulse Oximetry 96 Oxygen Delivery Fraction of Inspired Oxygen 10/11/24 03:30 10/11/24 03:45 10/11/24 04:00 Temperature Pulse Rate 72 61 Respiratory Rate 14 14 Blood Pressure Pulse Oximetry 95 96 Oxygen Delivery Fraction of Inspired Oxygen 30 10/11/24 04:00 10/11/24 04:00 10/11/24 04:00 Temperature 36.6 C Pulse Rate 61 61 63 Respiratory Rate 14 14 Blood Pressure 101/64 Pulse Oximetry 96 96 Oxygen Delivery Mechanical Ventilation Fraction of Inspired Oxygen 30 10/11/24 04:00 10/11/24 04:00 10/11/24 04:00 Temperature Pulse Rate 61 61 61 Respiratory Rate 14 14 Blood Pressure 101/64 Pulse Oximetry Oxygen Delivery Fraction of Inspired Oxygen 10/11/24 04:00 10/11/24 04:00 10/11/24 04:15 Temperature Pulse Rate 61 66 59 L Respiratory Rate 14 14 Blood Pressure 101/64 Pulse Oximetry 96 96 Oxygen Delivery Fraction of Inspired Oxygen 10/11/24 04:21 10/11/24 04:30 10/11/24 04:43 Temperature Pulse Rate 57 L 58 L 71 Respiratory Rate 14 Blood Pressure 102/55 L Pulse Oximetry 96 96 Oxygen Delivery Mechanical Ventilation Fraction of Inspired Oxygen 30 10/11/24 05:56 10/11/24 05:56 10/11/24 05:57 Temperature Pulse Rate 63 63 64 Respiratory Rate 14 14 14 Blood Pressure Pulse Oximetry Oxygen Delivery Fraction of Inspired Oxygen 10/11/24 05:57 10/11/24 06:00 10/11/24 06:00 Temperature Pulse Rate 64 63 63 Respiratory Rate 14 14 Blood Pressure 94/53 L Pulse Oximetry 97 Oxygen Delivery Fraction of Inspired Oxygen 10/11/24 06:00 10/11/24 06:00 10/11/24 06:00 Temperature Pulse Rate 63 63 63 Respiratory Rate Blood Pressure 94/53 L 94/53 L 94/53 L Pulse Oximetry Oxygen Delivery Fraction of Inspired Oxygen 10/11/24 06:15 10/11/24 06:15 10/11/24 07:53 Temperature Pulse Rate 62 62 65 Respiratory Rate 14 Blood Pressure 94/53 L Pulse Oximetry 97 Oxygen Delivery Mechanical Ventilation Fraction of Inspired Oxygen 30 10/11/24 07:53 10/11/24 08:00 10/11/24 08:00 Temperature 37.0 C Pulse Rate 65 65 60 Respiratory Rate 14 14 Blood Pressure 94/54 L 96/54 L Pulse Oximetry 97 Oxygen Delivery Fraction of Inspired Oxygen 10/11/24 08:00 10/11/24 08:00 10/11/24 08:00 Temperature Pulse Rate 60 60 60 Respiratory Rate 14 14 Blood Pressure 96/54 L Pulse Oximetry Oxygen Delivery Fraction of Inspired Oxygen 10/11/24 08:00 10/11/24 08:00 10/11/24 08:00 Temperature Pulse Rate 60 60 Respiratory Rate Blood Pressure 96/54 L Pulse Oximetry Oxygen Delivery Mechanical Ventilation Fraction of Inspired Oxygen 30 10/11/24 08:00 10/11/24 08:17 10/11/24 09:06 Temperature Pulse Rate 61 65 Respiratory Rate 14 Blood Pressure 107/59 L Pulse Oximetry Oxygen Delivery Fraction of Inspired Oxygen 30 10/11/24 09:15 10/11/24 09:15 10/11/24 09:25 Temperature 36.6 C Pulse Rate 69 65 Respiratory Rate 14 Blood Pressure 109/59 L 111/59 L Pulse Oximetry 96 Oxygen Delivery Fraction of Inspired Oxygen 30 10/11/24 09:30 10/11/24 09:45 10/11/24 10:00 Temperature Pulse Rate 61 63 64 Respiratory Rate Blood Pressure 111/59 L 104/56 L Pulse Oximetry Oxygen Delivery Fraction of Inspired Oxygen 10/11/24 10:00 10/11/24 10:00 10/11/24 10:00 Temperature Pulse Rate 64 64 64 Respiratory Rate 14 Blood Pressure 102/56 L 102/56 L Pulse Oximetry Oxygen Delivery Fraction of Inspired Oxygen 10/11/24 10:00 10/11/24 10:00 10/11/24 10:00 Temperature 37.2 C Pulse Rate 64 63 62 Respiratory Rate 14 14 Blood Pressure 103/57 L 105/57 L Pulse Oximetry 96 Oxygen Delivery Fraction of Inspired Oxygen 10/11/24 10:15 10/11/24 10:30 10/11/24 10:35 Temperature Pulse Rate 64 65 59 L Respiratory Rate Blood Pressure 104/56 L 106/57 L Pulse Oximetry 97 Oxygen Delivery Mechanical Ventilation Fraction of Inspired Oxygen 30 10/11/24 10:45 10/11/24 11:00 10/11/24 11:15 Temperature Pulse Rate 65 69 66 Respiratory Rate Blood Pressure 106/57 L 110/61 110/58 L Pulse Oximetry Oxygen Delivery Fraction of Inspired Oxygen 10/11/24 11:30 10/11/24 11:45 10/11/24 11:49 Temperature Pulse Rate 65 70 74 Respiratory Rate Blood Pressure 111/57 L 108/56 L 111/58 L Pulse Oximetry Oxygen Delivery Fraction of Inspired Oxygen 10/11/24 12:00 10/11/24 12:00 10/11/24 12:00 Temperature Pulse Rate 67 66 66 Respiratory Rate 14 Blood Pressure 108/55 L 107/55 L Pulse Oximetry Oxygen Delivery Fraction of Inspired Oxygen 10/11/24 12:00 10/11/24 12:00 10/11/24 12:00 Temperature Pulse Rate 66 66 Respiratory Rate 14 Blood Pressure 107/55 L Pulse Oximetry Oxygen Delivery Mechanical Ventilation Fraction of Inspired Oxygen 30 10/11/24 12:00 10/11/24 12:00 10/11/24 12:00 Temperature 36.4 C Pulse Rate 67 66 Respiratory Rate 14 Blood Pressure 107/55 L Pulse Oximetry 95 Oxygen Delivery Fraction of Inspired Oxygen 30 10/11/24 12:15 10/11/24 12:30 10/11/24 12:45 Temperature Pulse Rate 67 64 65 Respiratory Rate Blood Pressure 108/56 L 107/57 L 109/56 L Pulse Oximetry Oxygen Delivery Fraction of Inspired Oxygen 10/11/24 13:00 10/11/24 13:10 10/11/24 13:15 Temperature 36.5 C Pulse Rate 64 58 L 64 Respiratory Rate 14 Blood Pressure 109/55 L 131/66 128/66 Pulse Oximetry 96 Oxygen Delivery Fraction of Inspired Oxygen 10/11/24 13:20 10/11/24 13:20 10/11/24 13:23 Temperature Pulse Rate 63 63 68 Respiratory Rate 15 Blood Pressure 136/70 Pulse Oximetry 95 Oxygen Delivery Mechanical Ventilation Fraction of Inspired Oxygen 30 10/11/24 13:33 10/11/24 13:56 10/11/24 14:00 Temperature Pulse Rate 57 L 62 67 Respiratory Rate 14 14 Blood Pressure 141/75 H Pulse Oximetry Oxygen Delivery Fraction of Inspired Oxygen 10/11/24 14:00 10/11/24 14:00 10/11/24 14:00 Temperature Pulse Rate 67 67 63 Respiratory Rate 14 Blood Pressure 143/77 H Pulse Oximetry Oxygen Delivery Fraction of Inspired Oxygen 10/11/24 14:00 10/11/24 14:02 10/11/24 15:35 Temperature 36.5 C Pulse Rate 63 63 66 Respiratory Rate 14 Blood Pressure 142/75 H 141/74 H 98/52 L Pulse Oximetry 96 Oxygen Delivery Fraction of Inspired Oxygen 10/11/24 15:46 10/11/24 16:00 10/11/24 16:00 Temperature 36.5 C Pulse Rate 66 63 66 Respiratory Rate 15 Blood Pressure 98/52 L 100/53 L Pulse Oximetry 94 Oxygen Delivery Fraction of Inspired Oxygen 10/11/24 16:00 10/11/24 16:00 10/11/24 16:00 Temperature Pulse Rate 63 63 63 Respiratory Rate 15 Blood Pressure 100/53 L 100/53 L Pulse Oximetry Oxygen Delivery Fraction of Inspired Oxygen 10/11/24 16:00 10/11/24 16:00 10/11/24 16:00 Temperature Pulse Rate 63 Respiratory Rate 15 Blood Pressure Pulse Oximetry Oxygen Delivery Mechanical Ventilation Fraction of Inspired Oxygen 30 30 10/11/24 16:48 10/11/24 17:21 10/11/24 18:00 Temperature Pulse Rate 64 63 62 Respiratory Rate 14 Blood Pressure 107/55 L 101/52 L Pulse Oximetry 95 94 Oxygen Delivery Mechanical Ventilation Fraction of Inspired Oxygen 30 Intake/Output Intake/Output: Intake & Output 10/08/24 10/09/24 10/11/24 10/11/24 23:59 23:59 00:59 23:59 Intake Total 1379.6 2539.6 2062.7 1444.9 Output Total 0 100 3000 Balance 1379.6 2539.6 1962.7 -1555.1 Meds/Results Medications: Active Medications Generic Name Dose Route Start Last Admin Trade Name Freq PRN Reason Stop Dose Admin Acetaminophen 650 mg 10/08/24 20:49 Acetaminophen 650 Mg Suppository RECTAL Q6H PRN Mild Pain (1-3) or Fever Albuterol/Ipratropium 3 ml 10/09/24 14:00 10/11/24 07:53 Ipratropium 0.5 Mg/Albuterol Sulfate 2.5 Mg Ampul.Neb 3 Ml INHALATION 3 ml Q6HRT CESAR Administration Allopurinol 100 mg 10/09/24 08:00 10/11/24 13:16 Allopurinol 100 Mg Tablet PO 100 mg DAILY@0800 CESAR Administration Apixaban 2.5 mg 10/09/24 09:00 10/11/24 13:16 Apixaban 2.5 Mg Tablet PO 2.5 mg Q12HR CESAR Administration Atorvastatin Calcium 10 mg 10/09/24 09:00 10/11/24 13:16 Atorvastatin 10 Mg Tablet PO 10 mg DAILY CESAR Administration Budesonide 0.5 mg 10/09/24 20:00 10/11/24 07:53 Budesonide Respule Neb 0.5 Mg/2 Ml Amp INHALATION 0.5 mg Q12HRT CESAR Administration Dextrose 12.5 gm 10/08/24 22:06 Dextrose 50% 25 Gm/50 Ml Syringe IV PUSH PRN PRN Hypoglycemia Protocol Glucagon 1 mg 10/08/24 22:06 Glucagon For Inj 1 Mg Vial IM PRN PRN Hypoglycemia Protocol Glucose 15 gm 10/08/24 22:06 Glucose Oral Gel 15 Gm Of Glucse In 37.5 Gm Tube PO PRN PRN Hypoglycemia Protocol Hydrocortisone Sodium Succinate 100 mg 10/09/24 14:30 10/11/24 13:16 Hydrocortisone Sodium Succinate 100 Mg/2 Ml Vial IV PUSH 100 mg Q8HR CESAR Administration Ceftriaxone Sodium 1 gm in 50 mls @ 100 mls/hr 10/09/24 12:00 10/11/24 13:43 Rocephin 1 Gm/Ns 50 Ml IVPB Infused Q24H CESAR Infusion Azithromycin 500 mg in 250 mls @ 250 mls/hr 10/09/24 12:00 10/11/24 14:21 Zithromax IVPB 10/12/24 12:59 250 mls/hr Q24H CESAR Administration Dextrose 1,000 mls @ 100 mls/hr 10/08/24 22:06 Dextrose 5% 1,000 Ml IVPB PRN PRN Hypoglycemia Protocol Vasopressin 100 units/ 100 mls @ 2.4 mls/hr 10/08/24 22:45 10/11/24 16:00 Dextrose IV CONT 0.04 units/min .[id number] CESAR 2.4 mls/hr Titration Protocol 0.04 UNITS/MIN Norepinephrine Bitartrate 16 250 mls @ 15 mls/hr 10/09/24 19:25 10/11/24 17:21 mg/ Dextrose IV CONT 16 mcg/min .[id number] CESAR 15 mls/hr Titration Protocol 16 MCG/MIN Fentanyl Citrate 2,500 mcg in 250 mls @ 5 mls/hr 10/10/24 00:10 10/11/24 16:00 Fentanyl 2,500 Mcg/Ns 250 Ml IV CONT 50 mcg/hr .Q50H CESAR 5 mls/hr Titration Protocol 50 MCG/HR Midazolam HCl 100 mg in 100 mls @ 2 mls/hr 10/10/24 00:10 10/11/24 16:00 Versed 100 Mg/Ns 100 Ml IV CONT 2 mg/hr .Q50H CESAR 2 mls/hr Titration Protocol 2 MG/HR Albumin Human 50 mls @ 999 mls/hr 10/11/24 06:09 10/11/24 10:00 Albutein IVPB 10/12/24 06:08 830 mls/hr Q10M PRN Administration HYPOTENSION Vancomycin HCl 1,000 mg in 250 mls @ 250 mls/hr 10/11/24 18:00 10/11/24 17:17 Vancomycin 1,000 Mg/Ns 250 Ml IVPB 10/11/24 18:59 250 mls/hr ONCE ONE Administration Insulin Aspart 4 - 8 units 10/11/24 12:00 10/11/24 16:30 Insulin Aspart (*Bkc) 100 Units/Ml SUB-Q 4 units Q4H CESAR Administration Protocol Insulin Glargine 15 units 10/11/24 09:10 10/11/24 10:24 Insulin Glargine (*Bkc) 100 Units/Ml SUB-Q 15 units QAM CESAR Administration Multi-Ingred Cream/Lotion/Oil/Oint 1 applic 10/10/24 09:00 10/11/24 10:24 Mineral Oil/White Petrolatum Ointment EACH EYE 1 applic Q12HR CESAR Administration Mupirocin 1 applic 10/09/24 09:00 10/11/24 10:24 Mupirocin 2% Oint 22 Gm Tube EACH NARE 1 applic Q12HR CESAR Administration Oseltamivir Phosphate 30 mg 10/11/24 21:00 10/09/24 21:00 Oseltamivir Phosphate 30 Mg Capsule PO 10/12/24 21:01 Not Given [id number] CESAR Pantoprazole Sodium 40 mg 10/09/24 13:45 10/11/24 13:16 Pantoprazole Sodium Iv 40 Mg Vial IV PUSH 40 mg QAM CESAR Administration Perflutren Lipid Microsphere 0 ml 10/11/24 09:10 Perflutren Lipid Microspheres 1.5 Ml Vial Diluted To 10 Ml Total Volume IV PUSH 10/14/24 09:10 ONCE PRN adequate visualization Protocol Fluticasone/Salmeterol 2 puff 10/09/24 08:00 10/09/24 09:26 Fluticasone/Salmeterol 115-21 Mcg Inhaler 1 Puff INHALATION Not Given Q12HRT CESAR Sevelamer Carbonate 1,600 mg 10/09/24 08:00 10/11/24 17:17 Sevelamer Carbonate 800 Mg Tablet PO 1,600 mg TIDWM CESAR Administration Sodium Chloride 10 ml 10/09/24 14:00 10/11/24 13:16 Central Line Flush IV PUSH 10 ml Q8HR CESAR Administration Sodium Chloride 20 ml 10/09/24 06:24 Central Line Flush IV PUSH PRN PRN after blood draws Vancomycin HCl 1 each 10/08/24 23:03 Vancomycin For Hemodialysis IVPB PRN PRN Vancomycin Protocol Radiology Results: ITS Impressions Pelvis X-Ray 10/08/24 22:22 IMPRESSION: As above. Head CT 10/08/24 23:18 IMPRESSION: No acute intracranial findings. Chest CT 10/08/24 23:27 IMPRESSION: 1. Interstitial thickening in the lower lobes which may indicate pneumonitis. Edema is less likely. 2. Cardiomegaly. 3. Cholelithiasis 4. Splenic cysts unchanged. Chest X-Ray 10/11/24 06:22 Impression: Moderate pulmonary edema and bibasilar atelectasis versus bilateral pneumonia. Findings are worsened from prior exam.. Correlate clinically. Small bilateral pleural effusions. Support tubes, as above. Labs Labs: Laboratory Results - last 24 hr 10/10/24 10/10/24 10/10/24 17:17 20:01 23:47 WBC RBC Hgb Hct MCV MCH MCHC RDW Plt Count MPV Immature Gran % (Auto) Neut % (Auto) Lymph % (Auto) [place] % (Auto) Eos % (Auto) Baso % (Auto) Lymph # (Auto) [place] # (Auto) Eos # (Auto) Baso # (Auto) Abs Immat Gran (auto) Absolute Neuts (auto) Absolute Nucleated RBC Nucleated RBC % Puncture Site ABG pH ABG pCO2 ABG pO2 ABG PO2/FiO2 Ratio ABG HCO3 ABG O2 Saturation ABG O2 Content ABG Base Excess A-a Gradient Oxyhemoglobin Carboxyhemoglobin Methemoglobin Reduced Hemoglobin Total Hemoglobin O2 Delivery Device O2 Liters/Min Minute Volume Vent Rate Vent Mode FiO2 Tidal Volume PEEP Peak Inspir Pressure Pressure Support Sodium 131 L Potassium 5.1 H Chloride 89 L Carbon Dioxide 28 Anion Gap 14 H BUN 51 H Creatinine 5.60 H Estim Creat Clear Calc 10 Estimated GFR 10 L Glucose 250 H POC Capillary Glucose 241 H 248 H Lactic Acid Calcium 6.6 L Phosphorus Magnesium Total Bilirubin AST ALT Alkaline Phosphatase Total Protein Albumin Random Vancomycin Hep Bs Antigen Hep Bs Antibody 10/11/24 10/11/24 10/11/24 04:43 05:32 05:33 WBC 17.4 H RBC 4.56 L Hgb 14.3 Hct 43.9 MCV 96.3 MCH 31.4 MCHC 32.6 RDW 16.2 H Plt Count 108 L MPV 11.4 H Immature Gran % (Auto) 0.7 H Neut % (Auto) 92.1 H Lymph % (Auto) 3.3 L [place] % (Auto) 3.7 Eos % (Auto) 0.0 Baso % (Auto) 0.2 Lymph # (Auto) 0.57 L [place] # (Auto) 0.6 Eos # (Auto) 0.0 Baso # (Auto) 0.0 Abs Immat Gran (auto) 0.12 H Absolute Neuts (auto) 16.0 H Absolute Nucleated RBC 0.020 H Nucleated RBC % 0.1 Puncture Site Artline ABG pH 7.370 ABG pCO2 44.7 ABG pO2 72.8 L ABG PO2/FiO2 Ratio 2.43 ABG HCO3 25.3 ABG O2 Saturation 94.2 L ABG O2 Content 19.1 ABG Base Excess -0.3 A-a Gradient 88.6 Oxyhemoglobin 91.9 Carboxyhemoglobin 1.4 Methemoglobin 0.3 Reduced Hemoglobin 6.4 H Total Hemoglobin 14.8 O2 Delivery Device Ventilator O2 Liters/Min Not Reportable Minute Volume Not Reportable Vent Rate 14 Vent Mode Cmv FiO2 30 Tidal Volume 500 PEEP 5 Peak Inspir Pressure Not Reportable Pressure Support Not Reportable Sodium 132 L Potassium 5.2 H Chloride 89 L Carbon Dioxide 27 Anion Gap 16 H BUN 57 H Creatinine 6.17 H Estim Creat Clear Calc 9 Estimated GFR 9 L Glucose 240 H POC Capillary Glucose 256 H Lactic Acid 2.1 H Calcium 6.5 L Phosphorus 5.4 H Magnesium 2.0 Total Bilirubin 1.8 H AST 29 ALT 15 Alkaline Phosphatase 68 Total Protein 7.0 Albumin 3.4 L Random Vancomycin 15.0 Hep Bs Antigen Negative Hep Bs Antibody Negative 10/11/24 10/11/24 11:34 16:15 WBC RBC Hgb Hct MCV MCH MCHC RDW Plt Count MPV Immature Gran % (Auto) Neut % (Auto) Lymph % (Auto) [place] % (Auto) Eos % (Auto) Baso % (Auto) Lymph # (Auto) [place] # (Auto) Eos # (Auto) Baso # (Auto) Abs Immat Gran (auto) Absolute Neuts (auto) Absolute Nucleated RBC Nucleated RBC % Puncture Site ABG pH ABG pCO2 ABG pO2 ABG PO2/FiO2 Ratio ABG HCO3 ABG O2 Saturation ABG O2 Content ABG Base Excess A-a Gradient Oxyhemoglobin Carboxyhemoglobin Methemoglobin Reduced Hemoglobin Total Hemoglobin O2 Delivery Device O2 Liters/Min Minute Volume Vent Rate Vent Mode FiO2 Tidal Volume PEEP Peak Inspir Pressure Pressure Support Sodium Potassium Chloride Carbon Dioxide Anion Gap BUN Creatinine Estim Creat Clear Calc Estimated GFR Glucose POC Capillary Glucose 176 H 248 H Lactic Acid Calcium Phosphorus Magnesium Total Bilirubin AST ALT Alkaline Phosphatase Total Protein Albumin Random Vancomycin Hep Bs Antigen Hep Bs Antibody Quality VTE Prophylaxis VTE prophylaxis: mechanical ordered
[2024-10-11 20:39] LABS: Glucose Point of Care 247 mg/dl (65-105)
[2024-10-12] VITALS (57 sets, daily range): BP systolic 82–145; BP diastolic 43–75; PULSE 53–76; RESP 10–26; TEMP 35.9–37; O2SAT 92–98
[2024-10-12 00:11] LABS: Glucose Point of Care 228 mg/dl (65-105)
[2024-10-12] MEDS: INSULIN ASPART (*BKC) 100 UNITS/ML SUB-Q ×6 (00:35→20:55)
[2024-10-12] MEDS: IPRATROPIUM 0.5 MG/ALBUTEROL SULFATE 2.5 MG AMPUL.NEB 3 ML INHALATION ×4 (01:44→20:02)
[2024-10-12 04:12] LABS: Glucose Point of Care 255 mg/dl (65-105)
[2024-10-12 04:43] LABS: Basophils Percent Auto 0.1 % (0.2-1.2); Hematocrit 41.3 % (42.0-52.0); Hemoglobin 13.5 g/dL (14.0-18.0); Immature Granulocyte Absolute 0.06 K/mm3 (0.00-0.031); Immature Granulocyte Percent A 0.6 % (0-0.5); Immature Platelet Fraction Pct 5.5 % (0.9-11.2); Lymphocytes Absolute Auto 0.36 K/mm3 (0.9-3.2); Lymphocytes Percent Auto 3.7 % (18.3-44.2); Mean Corpuscular HGB Conc 32.7 g/dl (32-36); Mean Corpuscular Hemoglobin 31.5 pg (26-34); Mean Corpuscular Volume 96.5 fl (80-100); Mean Platelet Volume 11.7 fl (7.4-10.4); Monocytes Absolute Auto 0.6 K/mm3 (0.1-0.6); Monocytes Percent Auto 5.8 % (2.6-8.5); Neutrophils Absolute Auto 8.7 K/mm3 (1.3-6.7); Neutrophils Percent Auto 89.8 % (45.5-73.1); Platelet Count Result 67 k/mm3 (150-375); Red Blood Count 4.28 M/mm3 (4.6-6.20); Red Cell Distribution Width 16.1 % (11.5-14.5); White Blood Count 9.7 K/mm3 (4.5-10.0)
[2024-10-12 04:57] LABS: Lactic Acid Reflex 2.4 mmol/L (0.7-2.0)
[2024-10-12 05:00] LABS: Alveolar/Arterial O2 Gradient 101.7 mmHg; Base Excess ABG 0.3 mEq/l (+/-2.0); Carboxyhemoglobin 1.5 % THb (0-2.0); Fractional Inspired Oxygen 30 %; HCO3 ABG 23.8 mEq/l (22.0-26.0); Methemoglobin ABG 0.3 %THb (0-1.5); Oxygen Saturation ABG 95.1 % (95.0-100.0); Oxyhemoglobin 92.8 % THb (90.0-100.0); PCO2 ABG 34.9 mmHg (35.0-45.0); PO2 ABG 71.2 mmHg (80.0-100.0); PO2 FiO2 Ratio Arterial Blood 2.37 %; Reduced Hemoglobin 5.4 %THb (0-5.0); Total Hemoglobin 13.8 g/dL (12.0-18.0); pH ABG 7.451 (7.350-7.450)
[2024-10-12 05:00] LABS: Alanine Aminotransferase 13 U/L (6-50); Albumin Level 3.5 g/dL (3.5-5.1); Alkaline Phosphatase 67 U/L (38-126); Anion Gap 19 mmol/L (4-12); Aspartate Amino Transferase 23 U/L (17-59); Bilirubin,Total 1.9 mg/dL (0.2-1.3); Blood Urea Nitrogen 45 mg/dL (9-20); Calcium 7.3 mg/dL (8.4-10.2); Carbon Dioxide 23 mmol/L (22-30); Chloride 93 mmol/L (98-107); Estimated CRCL calculation 11 ml/min; Estimated Glomerular Filt Rate 11; Glucose 261 mg/dL (65-110); Potassium 4.8 mmol/L (3.4-5.0); Sodium 135 mmol/L (137-145)
[2024-10-12 05:02] LABS: Device VENTILATOR; Site Drawn ARTLINE
[2024-10-12 05:03] LABS: Arterial Blood Gas PEEP 5 cmH2O; Arterial Blood Gas Tidal Volume 500 ml; Arterial Blood Gas Vent Mode CMV; Arterial Blood Gas Ventilator rate 14 /MIN
[2024-10-12 05:09] LABS: Platelet Estimate Decreased (Adequate)
[2024-10-12 05:10] LABS: Anisocytosis 1+; Burr Cells 1+; Ovalocytes 1+; Poikilocytosis 1+; Schistocytes None Seen
[2024-10-12] MEDS: HYDROCORTISONE SODIUM SUCCINATE 100 MG/2 ML VIAL IV PUSH ×3 (05:58→20:57)
[2024-10-12] MEDS: CENTRAL LINE FLUSH 10 ML IV PUSH ×3 (05:58→20:57)
[2024-10-12 07:18] LABS: Glucose Point of Care 263 mg/dl (65-105)
[2024-10-12 07:39] LABS: Reflex Lactic Acid Yes or No Add Lactic
[2024-10-12] MEDS: BUDESONIDE RESPULE NEB 0.5 MG/2 ML AMP INHALATION ×2 (07:55→20:02)
[2024-10-12] MEDS: PANTOPRAZOLE SODIUM IV 40 MG VIAL IV PUSH (08:18)
[2024-10-12] MEDS: allopurinoL 100 MG TABLET PO (08:21)
[2024-10-12] MEDS: SEVELAMER CARBONATE 800 MG TABLET 1600 MG PO ×3 (08:21→16:34)
[2024-10-12] MEDS: ATORVASTATIN 10 MG TABLET PO (08:21)
[2024-10-12] MEDS: INSULIN GLARGINE (*BKC) 100 UNITS/ML 25 UNITS SUB-Q (08:22)
[2024-10-12] MEDS: MINERAL OIL/WHITE PETROLATUM OINTMENT 1 APPLIC EACH EYE ×2 (08:23→20:57)
[2024-10-12] MEDS: MUPIROCIN 2% OINT 22 GM TUBE 1 APPLIC EACH NARE ×2 (08:24→20:57)
--- NOTE | 2024-10-12 09:01 | WPDINTPN ---
Progress Note: A&P Assessment and Plan (1) Respiratory failure: Code(s): J96.90 - Respiratory failure, unspecified, unspecified whether with hypoxia or hypercapnia Status: Acute Assessment and Plan: Acute respiratory failure likely related to pneumonia, altered mental status, airway protection 10/08: Intubated -currently on CMV mode of ventilation, peep of 5, 30% FiO2 - continue bronchodilators and Pulmicort -chest x-ray reviewed, ventilator adjusted -sedated with fentanyl and Versed infusion maintain RASS of 0 to -2 -sedation holiday ordered and will plan for weaning trial if patient is a candidate. (2) Septic shock: Code(s): A41.9 - Sepsis, unspecified organism; R65.21 - Severe sepsis with septic shock Status: Acute Assessment and Plan: Patient presented with altered mental status, hypotension, lactic acidosis -septic shock likely related to bacteremia, bilateral pneumonia along with influenza -continue azithromycin, ceftriaxone, vanc, (10/08) -10/08: Blood cultures growing strep mitis 10/10 repeat set of blood culture sent and pending -check echocardiogram -patient did receive 1500 mL in IV fluids on had upon admission -status post albumin 25% q.6 hours x4 doses for intravascular volume expansion -patient remains on Levophed and vasopressin, maintain MAP > greater than 65 mmHg or SBP greater than 100 mmHg for adequate end organ perfusion -off epinephrine infusion -continue hydrocortisone (3) Bacteremia: Code(s): R78.81 - Bacteremia Status: Acute Assessment and Plan: 10/08: Blood cultures growing strep mitis group 10/10 repeat set of blood culture sent and pending -continue antibiotics as above (4) Influenza A: Code(s): J10.1 - Influenza due to other identified influenza virus with other respiratory manifestations Status: Acute Assessment and Plan: Continue Tamiflu, renally dosed (5) Pneumonia: Code(s): J18.9 - Pneumonia, unspecified organism Status: Acute Assessment and Plan: Chest x-ray showed pneumonia, CT chest showed pneumonitis, -continue antibiotics as above (6) Altered mental status: Code(s): R41.82 - Altered mental status, unspecified Status: Acute Assessment and Plan: Currently intubated and sedated Head CT was negative for any acute changes at the time presentation (7) End-stage renal disease on hemodialysis: Code(s): N18.6 - End stage renal disease; Z99.2 - Dependence on renal dialysis Status: Acute Assessment and Plan: End-stage renal disease on dialysis (M, W, F) -dialysis per Nephrology (8) Diabetes: Qualifiers: Diabetes mellitus type: type 2 Diabetes mellitus long term care social worker insulin use: without long term care social worker use Diabetes mellitus complication status: with kidney complications Diabetes mellitus complication detail: with chronic kidney disease Chronic kidney disease stage: on chronic dialysis Qualified Code(s): E11.22 - Type 2 diabetes mellitus with diabetic chronic kidney disease; N18.6 - End stage renal disease; Z99.2 - Dependence on renal dialysis Code(s): E11.9 - Type 2 diabetes mellitus without complications Status: Chronic Assessment and Plan: Increase sliding scale to q.4 hours and high Increase Lantus Plan DVT prophylaxis: Den [place] Jay is on hold secondary to thrombocytopenia Stress ulcer prophylaxis: Protonix Nutrition: Tube feeds Code Status: Full code Critical Care Time Spent: 30 minutes Discussed with patient's at bedside updated with patient's condition plan of care. She is aware that patient has bacteremia, pneumonia, septic shock, on 2 blood pressure support medications. I answered all questions Due to a high probability of clinically significant, life threatening deterioration, the patient required my highest level of preparedness to intervene emergently and I personally spent this critical care time directly and personally managing the patient. This critical care time included obtaining a history; examining the patient; pulse oximetry; ordering and review of studies; arranging urgent treatment with development of a management plan; evaluation of patient's response to treatment; frequent reassessment; and discussions with other providers. It was exclusive of separately billable procedures and treating other patients and teaching time. Please see Assessment and Plan section and the rest of the note for further information on patient assessment and treatment This dictation may have been done utilizing a voice recognition system. Attempts have been made to correct errors. However, there may be uncorrected grammatical, spelling, and recognitions errors present. Subjective Date/time seen: 10/12/24 Overnight events reviewed. Afebrile Continues to be on mechanical ventilation 30% FiO2 Continues to be on vasopressors Levophed and vasopressin Continues to be sedated with Versed and fentanyl He was dialyzed yesterday Interval history: Reason for consult: Altered mental status, generalized weakness, hypotension, shock, acute respiratory failure, Gram-positive cocci in chains bacteremia, influenza A positive, MRSA screen positive Review of Systems Review of Systems: ROS unobtainable: Yes unobtainable due to endotracheal tube, unobtainable due to medical condition and unobtainable due to mental status Exam Narrative: General: Sedated and intubated, in no acute distress HEENT:? Pupils equal and reactive bilaterally Neck:? Supple Respiratory:? Coarse breath sounds bilaterally, decreased at bases, no wheezing, adequate air entry Cardiac:? Irregularly irregular, bradycardic Abdomen:? Soft, nontender, nondistended, protuberant, hypoactive bowel sound Extremities:? Bilateral lower extremity edema pitting in nature, palpable pedal pulses Neuro:? Patient is intubated, sedated, does not open his eyes or follow simple commands, withdraws to pain in all extremity Skin:? Skin is dry and flaky Psych:? Unable to assess at this time Objective Data Vital Signs Vital Signs: Vital Signs - 24 hr 10/11/24 09:06 10/11/24 09:15 10/11/24 09:15 Temperature 36.6 C Pulse Rate 65 69 Respiratory Rate 14 Blood Pressure 107/59 L 109/59 L Pulse Oximetry 96 Oxygen Delivery Fraction of Inspired Oxygen 30 10/11/24 09:25 10/11/24 09:30 10/11/24 09:45 Temperature Pulse Rate 65 61 63 Respiratory Rate Blood Pressure 111/59 L 111/59 L 104/56 L Pulse Oximetry Oxygen Delivery Fraction of Inspired Oxygen 10/11/24 10:00 10/11/24 10:00 10/11/24 10:00 Temperature Pulse Rate 64 64 64 Respiratory Rate 14 Blood Pressure 102/56 L Pulse Oximetry Oxygen Delivery Fraction of Inspired Oxygen 10/11/24 10:00 10/11/24 10:00 10/11/24 10:00 Temperature Pulse Rate 64 64 63 Respiratory Rate 14 Blood Pressure 102/56 L 103/57 L Pulse Oximetry Oxygen Delivery Fraction of Inspired Oxygen 10/11/24 10:00 10/11/24 10:15 10/11/24 10:30 Temperature 37.2 C Pulse Rate 62 64 65 Respiratory Rate 14 Blood Pressure 105/57 L 104/56 L 106/57 L Pulse Oximetry 96 Oxygen Delivery Fraction of Inspired Oxygen 10/11/24 10:35 10/11/24 10:45 10/11/24 11:00 Temperature Pulse Rate 59 L 65 69 Respiratory Rate Blood Pressure 106/57 L 110/61 Pulse Oximetry 97 Oxygen Delivery Mechanical Ventilation Fraction of Inspired Oxygen 30 10/11/24 11:15 10/11/24 11:30 10/11/24 11:45 Temperature Pulse Rate 66 65 70 Respiratory Rate Blood Pressure 110/58 L 111/57 L 108/56 L Pulse Oximetry Oxygen Delivery Fraction of Inspired Oxygen 10/11/24 11:49 10/11/24 12:00 10/11/24 12:00 Temperature Pulse Rate 74 67 66 Respiratory Rate Blood Pressure 111/58 L 108/55 L 107/55 L Pulse Oximetry Oxygen Delivery Fraction of Inspired Oxygen 10/11/24 12:00 10/11/24 12:00 10/11/24 12:00 Temperature Pulse Rate 66 66 66 Respiratory Rate 14 14 Blood Pressure 107/55 L Pulse Oximetry Oxygen Delivery Fraction of Inspired Oxygen 10/11/24 12:00 10/11/24 12:00 10/11/24 12:00 Temperature Pulse Rate 67 Respiratory Rate Blood Pressure Pulse Oximetry Oxygen Delivery Mechanical Ventilation Fraction of Inspired Oxygen 30 30 10/11/24 12:00 10/11/24 12:15 10/11/24 12:30 Temperature 36.4 C Pulse Rate 66 67 64 Respiratory Rate 14 Blood Pressure 107/55 L 108/56 L 107/57 L Pulse Oximetry 95 Oxygen Delivery Fraction of Inspired Oxygen 10/11/24 12:45 10/11/24 13:00 10/11/24 13:10 Temperature Pulse Rate 65 64 58 L Respiratory Rate Blood Pressure 109/56 L 109/55 L 131/66 Pulse Oximetry Oxygen Delivery Fraction of Inspired Oxygen 10/11/24 13:15 10/11/24 13:20 10/11/24 13:20 Temperature 36.5 C Pulse Rate 64 63 63 Respiratory Rate 14 15 Blood Pressure 128/66 Pulse Oximetry 96 95 Oxygen Delivery Mechanical Ventilation Fraction of Inspired Oxygen 30 10/11/24 13:23 10/11/24 13:33 10/11/24 13:56 Temperature Pulse Rate 68 57 L 62 Respiratory Rate 14 Blood Pressure 136/70 141/75 H Pulse Oximetry Oxygen Delivery Fraction of Inspired Oxygen 10/11/24 14:00 10/11/24 14:00 10/11/24 14:00 Temperature Pulse Rate 67 67 67 Respiratory Rate 14 14 Blood Pressure 143/77 H Pulse Oximetry Oxygen Delivery Fraction of Inspired Oxygen 10/11/24 14:00 10/11/24 14:00 10/11/24 14:02 Temperature 36.5 C Pulse Rate 63 63 63 Respiratory Rate 14 Blood Pressure 142/75 H 141/74 H Pulse Oximetry 96 Oxygen Delivery Fraction of Inspired Oxygen 10/11/24 15:35 10/11/24 15:46 10/11/24 16:00 Temperature 36.5 C Pulse Rate 66 66 63 Respiratory Rate 15 Blood Pressure 98/52 L 98/52 L 100/53 L Pulse Oximetry 94 Oxygen Delivery Fraction of Inspired Oxygen 10/11/24 16:00 10/11/24 16:00 10/11/24 16:00 Temperature Pulse Rate 66 63 63 Respiratory Rate 15 Blood Pressure 100/53 L Pulse Oximetry Oxygen Delivery Fraction of Inspired Oxygen 10/11/24 16:00 10/11/24 16:00 10/11/24 16:00 Temperature Pulse Rate 63 63 Respiratory Rate 15 Blood Pressure 100/53 L Pulse Oximetry Oxygen Delivery Fraction of Inspired Oxygen 30 10/11/24 16:00 10/11/24 16:48 10/11/24 17:21 Temperature Pulse Rate 64 63 Respiratory Rate Blood Pressure 107/55 L Pulse Oximetry 95 Oxygen Delivery Mechanical Ventilation Mechanical Ventilation Fraction of Inspired Oxygen 30 30 10/11/24 18:00 10/11/24 19:00 10/11/24 19:15 Temperature Pulse Rate 62 61 62 Respiratory Rate 14 14 13 Blood Pressure 101/52 L Pulse Oximetry 94 95 96 Oxygen Delivery Fraction of Inspired Oxygen 10/11/24 19:30 10/11/24 19:45 10/11/24 20:00 Temperature Pulse Rate 62 62 62 Respiratory Rate 15 14 14 Blood Pressure Pulse Oximetry 94 94 Oxygen Delivery Fraction of Inspired Oxygen 10/11/24 20:00 10/11/24 20:00 10/11/24 20:00 Temperature Pulse Rate 62 62 62 Respiratory Rate 14 Blood Pressure 101/53 L 101/53 L Pulse Oximetry Oxygen Delivery Fraction of Inspired Oxygen 10/11/24 20:00 10/11/24 20:00 10/11/24 20:00 Temperature 36.8 C Pulse Rate 62 62 Respiratory Rate 14 14 Blood Pressure 101/53 L Pulse Oximetry 94 94 Oxygen Delivery Mechanical Ventilation Fraction of Inspired Oxygen 30 30 10/11/24 20:00 10/11/24 20:02 10/11/24 20:09 Temperature Pulse Rate 66 68 65 Respiratory Rate 14 14 Blood Pressure Pulse Oximetry 95 94 Oxygen Delivery Mechanical Ventilation Fraction of Inspired Oxygen 30 10/11/24 20:15 10/11/24 20:15 10/11/24 20:30 Temperature Pulse Rate 68 69 62 Respiratory Rate 14 14 Blood Pressure 99/52 L Pulse Oximetry 94 Oxygen Delivery Fraction of Inspired Oxygen 10/11/24 20:30 10/11/24 20:45 10/11/24 21:00 Temperature Pulse Rate 66 61 61 Respiratory Rate 14 14 14 Blood Pressure Pulse Oximetry 95 95 95 Oxygen Delivery Fraction of Inspired Oxygen 10/11/24 21:15 10/11/24 21:30 10/11/24 21:45 Temperature Pulse Rate 59 L 61 64 Respiratory Rate 14 14 14 Blood Pressure Pulse Oximetry 94 94 93 Oxygen Delivery Fraction of Inspired Oxygen 10/11/24 22:00 10/11/24 22:00 10/11/24 22:00 Temperature Pulse Rate 62 14 L 62 Respiratory Rate 14 Blood Pressure 99/53 L 99/53 L Pulse Oximetry Oxygen Delivery Fraction of Inspired Oxygen 10/11/24 22:00 10/11/24 22:00 10/11/24 22:00 Temperature Pulse Rate 62 62 62 Respiratory Rate 14 14 Blood Pressure 99/53 L Pulse Oximetry 93 Oxygen Delivery Fraction of Inspired Oxygen 10/11/24 22:00 10/11/24 22:15 10/11/24 22:30 Temperature Pulse Rate 61 59 L 62 Respiratory Rate 14 14 14 Blood Pressure Pulse Oximetry 94 94 94 Oxygen Delivery Fraction of Inspired Oxygen 10/11/24 22:45 10/11/24 22:45 10/11/24 23:00 Temperature Pulse Rate 62 62 61 Respiratory Rate 14 14 Blood Pressure 99/52 L Pulse Oximetry 95 95 Oxygen Delivery Fraction of Inspired Oxygen 10/11/24 23:08 10/11/24 23:15 10/11/24 23:30 Temperature Pulse Rate 65 59 L 62 Respiratory Rate 14 14 Blood Pressure Pulse Oximetry 94 95 95 Oxygen Delivery Mechanical Ventilation Fraction of Inspired Oxygen 30 10/11/24 23:45 10/12/24 00:00 10/12/24 00:00 Temperature Pulse Rate 63 62 62 Respiratory Rate 14 14 Blood Pressure 98/50 L Pulse Oximetry 95 Oxygen Delivery Fraction of Inspired Oxygen 10/12/24 00:00 10/12/24 00:00 10/12/24 00:00 Temperature 36.8 C Pulse Rate 62 62 62 Respiratory Rate 14 26 H Blood Pressure 98/50 L 96/49 L Pulse Oximetry 95 Oxygen Delivery Fraction of Inspired Oxygen 10/12/24 00:00 10/12/24 00:15 10/12/24 00:15 Temperature Pulse Rate 56 L 62 62 Respiratory Rate 15 14 Blood Pressure 99/51 L Pulse Oximetry 96 96 Oxygen Delivery Mechanical Ventilation Fraction of Inspired Oxygen 30 10/12/24 00:15 10/12/24 00:15 10/12/24 00:30 Temperature Pulse Rate 60 65 Respiratory Rate 14 Blood Pressure 105/46 L Pulse Oximetry 95 Oxygen Delivery Fraction of Inspired Oxygen 30 10/12/24 00:30 10/12/24 00:45 10/12/24 01:40 Temperature Pulse Rate 67 60 61 Respiratory Rate 14 14 Blood Pressure 86/46 L Pulse Oximetry 94 95 Oxygen Delivery Fraction of Inspired Oxygen 10/12/24 01:44 10/12/24 01:49 10/12/24 02:00 Temperature Pulse Rate 68 65 62 Respiratory Rate 14 Blood Pressure 107/57 L Pulse Oximetry 94 Oxygen Delivery Mechanical Ventilation Fraction of Inspired Oxygen 30 10/12/24 02:00 10/12/24 02:00 10/12/24 02:00 Temperature Pulse Rate 61 61 57 L Respiratory Rate 14 Blood Pressure 107/57 L Pulse Oximetry Oxygen Delivery Fraction of Inspired Oxygen 10/12/24 02:00 10/12/24 02:09 10/12/24 02:12 Temperature Pulse Rate 59 L 61 59 L Respiratory Rate 14 14 Blood Pressure 108/54 L 107/54 L Pulse Oximetry 96 Oxygen Delivery Fraction of Inspired Oxygen 10/12/24 02:38 10/12/24 03:06 10/12/24 03:37 Temperature Pulse Rate 56 L 53 L 56 L Respiratory Rate Blood Pressure 111/54 L 107/53 L 106/51 L Pulse Oximetry Oxygen Delivery Fraction of Inspired Oxygen 10/12/24 04:00 10/12/24 04:00 10/12/24 04:00 Temperature 36.9 C Pulse Rate 55 L 56 L 56 L Respiratory Rate 26 H 14 Blood Pressure 99/47 L 103/52 L Pulse Oximetry 97 Oxygen Delivery Fraction of Inspired Oxygen 10/12/24 04:00 10/12/24 04:00 10/12/24 04:00 Temperature Pulse Rate 56 L 56 L 56 L Respiratory Rate 14 14 Blood Pressure 103/52 L Pulse Oximetry 96 Oxygen Delivery Mechanical Ventilation Fraction of Inspired Oxygen 30 10/12/24 04:00 10/12/24 04:00 10/12/24 04:32 Temperature Pulse Rate 58 L 55 L Respiratory Rate Blood Pressure 105/51 L Pulse Oximetry Oxygen Delivery Fraction of Inspired Oxygen 30 10/12/24 05:00 10/12/24 05:20 10/12/24 06:00 Temperature Pulse Rate 65 59 L 55 L Respiratory Rate 14 Blood Pressure 88/55 L Pulse Oximetry 94 Oxygen Delivery Mechanical Ventilation Fraction of Inspired Oxygen 30 10/12/24 06:00 10/12/24 06:00 10/12/24 06:00 Temperature Pulse Rate 55 L 55 L 55 L Respiratory Rate 14 Blood Pressure 93/47 L 93/47 L Pulse Oximetry Oxygen Delivery Fraction of Inspired Oxygen 10/12/24 06:00 10/12/24 06:00 10/12/24 08:00 Temperature Pulse Rate 57 L 56 L 60 Respiratory Rate 26 H Blood Pressure 96/47 L Pulse Oximetry 98 93 Oxygen Delivery Mechanical Ventilation Fraction of Inspired Oxygen 21 10/12/24 08:00 10/12/24 08:00 10/12/24 08:00 Temperature 37.0 C Pulse Rate 60 59 L 60 Respiratory Rate 14 14 14 Blood Pressure 96/47 L Pulse Oximetry 98 Oxygen Delivery Fraction of Inspired Oxygen 10/12/24 08:00 10/12/24 08:00 10/12/24 08:00 Temperature Pulse Rate 60 60 60 Respiratory Rate 14 Blood Pressure 95/47 L 95/47 L Pulse Oximetry Oxygen Delivery Fraction of Inspired Oxygen 10/12/24 08:15 10/12/24 08:15 Temperature Pulse Rate 58 L 57 L Respiratory Rate 14 14 Blood Pressure Pulse Oximetry Oxygen Delivery Fraction of Inspired Oxygen Intake/Output Intake/Output: Intake & Output 10/09/24 10/11/24 10/11/24 10/12/24 23:59 00:59 23:59 23:59 Intake Total 2539.6 2062.7 1580.7 560.4 Output Total 0 100 3000 0 Balance 2539.6 1962.7 -1419.3 560.4 Meds/Results Medications: Active Medications Generic Name Dose Route Start Last Admin Trade Name Sd PRN Reason Stop Dose Admin Acetaminophen 650 mg 10/08/24 20:49 Acetaminophen 650 Mg Suppository RECTAL Q6H PRN Mild Pain (1-3) or Fever Albuterol/Ipratropium 3 ml 10/09/24 14:00 10/12/24 07:55 Ipratropium 0.5 Mg/Albuterol Sulfate 2.5 Mg Ampul.Neb 3 Ml INHALATION 3 ml Q6HRT CESAR Administration Allopurinol 100 mg 10/09/24 08:00 10/12/24 08:21 Allopurinol 100 Mg Tablet PO 100 mg DAILY@0800 CESAR Administration Apixaban 2.5 mg 10/09/24 09:00 10/11/24 20:01 Apixaban 2.5 Mg Tablet PO 2.5 mg Q12HR CESAR Administration Atorvastatin Calcium 10 mg 10/09/24 09:00 10/12/24 08:21 Atorvastatin 10 Mg Tablet PO 10 mg DAILY CESAR Administration Budesonide 0.5 mg 10/09/24 20:00 10/12/24 07:55 Budesonide Respule Neb 0.5 Mg/2 Ml Amp INHALATION 0.5 mg Q12HRT CESAR Administration Dextrose 12.5 gm 10/08/24 22:06 Dextrose 50% 25 Gm/50 Ml Syringe IV PUSH PRN PRN Hypoglycemia Protocol Glucagon 1 mg 10/08/24 22:06 Glucagon For Inj 1 Mg Vial IM PRN PRN Hypoglycemia Protocol Glucose 15 gm 10/08/24 22:06 Glucose Oral Gel 15 Gm Of Glucse In 37.5 Gm Tube PO PRN PRN Hypoglycemia Protocol Hydrocortisone Sodium Succinate 100 mg 10/09/24 14:30 10/12/24 05:58 Hydrocortisone Sodium Succinate 100 Mg/2 Ml Vial IV PUSH 100 mg Q8HR CESAR Administration Ceftriaxone Sodium 1 gm in 50 mls @ 100 mls/hr 10/09/24 12:00 10/11/24 13:43 Rocephin 1 Gm/Ns 50 Ml IVPB Infused Q24H CESAR Infusion Azithromycin 500 mg in 250 mls @ 250 mls/hr 10/09/24 12:00 10/11/24 14:21 Zithromax IVPB 10/12/24 12:59 250 mls/hr Q24H CESAR Administration Dextrose 1,000 mls @ 100 mls/hr 10/08/24 22:06 Dextrose 5% 1,000 Ml IVPB PRN PRN Hypoglycemia Protocol Vasopressin 100 units/ 100 mls @ 2.4 mls/hr 10/08/24 22:45 10/12/24 08:00 Dextrose IV CONT 0.04 units/min .[id number] CESAR 2.4 mls/hr Titration Protocol 0.04 UNITS/MIN Norepinephrine Bitartrate 16 250 mls @ 10.313 mls/hr 10/09/24 19:25 10/12/24 08:00 mg/ Dextrose IV CONT 11 mcg/min .Q24H CESAR 10.31 mls/hr Titration Protocol 11 MCG/MIN Fentanyl Citrate 2,500 mcg in 250 mls @ 0 mls/hr 10/10/24 00:10 10/12/24 08:15 Fentanyl 2,500 Mcg/Ns 250 Ml IV CONT 0 mcg/hr .Q0M CSEAR 0 mls/hr Titration Protocol Midazolam HCl 100 mg in 100 mls @ 0 mls/hr 10/10/24 00:10 10/12/24 08:15 Versed 100 Mg/Ns 100 Ml IV CONT 0 mg/hr .Q0M CESAR 0 mls/hr Titration Protocol Insulin Aspart 4 - 8 units 10/11/24 12:00 10/12/24 08:21 Insulin Aspart (*Bkc) 100 Units/Ml SUB-Q 5 units Q4H CESAR Administration Protocol Insulin Glargine 25 units 10/12/24 09:00 10/12/24 08:22 Insulin Glargine (*Bkc) 100 Units/Ml SUB-Q 25 units QAM CESAR Administration Multi-Ingred Cream/Lotion/Oil/Oint 1 applic 10/10/24 09:00 10/12/24 08:23 Mineral Oil/White Petrolatum Ointment EACH EYE 1 applic Q12HR CESAR Administration Mupirocin 1 applic 10/09/24 09:00 10/12/24 08:24 Mupirocin 2% Oint 22 Gm Tube EACH NARE 1 applic Q12HR CESAR Administration Oseltamivir Phosphate 30 mg 10/11/24 21:00 10/09/24 21:00 Oseltamivir Phosphate 30 Mg Capsule PO 10/12/24 21:01 Not Given [email or web address] [facility] Pantoprazole Sodium 40 mg 10/09/24 13:45 10/12/24 08:18 Pantoprazole Sodium Iv 40 Mg Vial IV PUSH 40 mg QAM CESAR Administration Perflutren Lipid Microsphere 0 ml 10/11/24 09:10 Perflutren Lipid Microspheres 1.5 Ml Vial Diluted To 10 Ml Total Volume IV PUSH 10/14/24 09:10 ONCE PRN adequate visualization Protocol Fluticasone/Salmeterol 2 puff 10/09/24 08:00 10/09/24 09:26 Fluticasone/Salmeterol 115-21 Mcg Inhaler 1 Puff INHALATION Not Given Q12HRT CESAR Sevelamer Carbonate 1,600 mg 10/09/24 08:00 10/12/24 08:21 Sevelamer Carbonate 800 Mg Tablet PO 1,600 mg TIDWM CESAR Administration Sodium Chloride 10 ml 10/09/24 14:00 10/12/24 05:58 Central Line Flush IV PUSH 10 ml Q8HR CESAR Administration Sodium Chloride 20 ml 10/09/24 06:24 Central Line Flush IV PUSH PRN PRN after blood draws Vancomycin HCl 1 each 10/08/24 23:03 Vancomycin For Hemodialysis IVPB PRN PRN Vancomycin Protocol Radiology Results: ITS Impressions Pelvis X-Ray 10/08/24 22:22 IMPRESSION: As above. Head CT 10/08/24 23:18 IMPRESSION: No acute intracranial findings. Chest CT 10/08/24 23:27 IMPRESSION: 1. Interstitial thickening in the lower lobes which may indicate pneumonitis. Edema is less likely. 2. Cardiomegaly. 3. Cholelithiasis 4. Splenic cysts unchanged. Chest X-Ray 10/12/24 06:33 Impression: Moderate pulmonary edema pattern with small pleural effusions and discoid right mid lung atelectasis. Correlate clinically for pneumonia. Stable support tubes. Labs Labs: Laboratory Results - last 24 hr 10/11/24 10/11/24 10/11/24 11:34 16:15 20:00 WBC RBC Hgb Hct MCV MCH MCHC RDW Plt Count MPV Immature Gran % (Auto) Neut % (Auto) Lymph % (Auto) [place] % (Auto) Eos % (Auto) Baso % (Auto) Lymph # (Auto) [place] # (Auto) Eos # (Auto) Baso # (Auto) Abs Immat Gran (auto) Absolute Neuts (auto) Absolute Nucleated RBC Band Neutrophils % Nucleated RBC % Platelet Estimate % Immature Plt Fraction Poikilocytosis Anisocytosis Ovalocytes [place] Cells Schistocytes Puncture Site ABG pH ABG pCO2 ABG pO2 ABG PO2/FiO2 Ratio ABG HCO3 ABG O2 Saturation ABG O2 Content ABG Base Excess A-a Gradient Oxyhemoglobin Carboxyhemoglobin Methemoglobin Reduced Hemoglobin Total Hemoglobin O2 Delivery Device O2 Liters/Min Minute Volume Vent Rate Vent Mode FiO2 Tidal Volume PEEP Peak Inspir Pressure Pressure Support Sodium Potassium Chloride Carbon Dioxide Anion Gap BUN Creatinine Estim Creat Clear Calc Estimated GFR Glucose POC Capillary Glucose 176 H 248 H 247 H Lactic Acid Calcium Phosphorus Magnesium Total Bilirubin AST ALT Alkaline Phosphatase Total Protein Albumin 10/12/24 10/12/24 10/12/24 00:08 04:09 04:23 WBC 9.7 RBC 4.28 L Hgb 13.5 L Hct 41.3 L MCV 96.5 MCH 31.5 MCHC 32.7 RDW 16.1 H Plt Count 67 L MPV 11.7 H Immature Gran % (Auto) 0.6 H Neut % (Auto) 89.8 H Lymph % (Auto) 3.7 L [place] % (Auto) 5.8 Eos % (Auto) 0.0 Baso % (Auto) 0.1 L Lymph # (Auto) 0.36 L [place] # (Auto) 0.6 Eos # (Auto) 0.0 Baso # (Auto) 0.0 Abs Immat Gran (auto) 0.06 H Absolute Neuts (auto) 8.7 H Absolute Nucleated RBC 0.000 Band Neutrophils % Not Reportable Nucleated RBC % 0.0 Platelet Estimate Decreased % Immature Plt Fraction 5.5 Poikilocytosis 1+ Anisocytosis 1+ Ovalocytes 1+ [place] Cells 1+ Schistocytes None seen Puncture Site ABG pH ABG pCO2 ABG pO2 ABG PO2/FiO2 Ratio ABG HCO3 ABG O2 Saturation ABG O2 Content ABG Base Excess A-a Gradient Oxyhemoglobin Carboxyhemoglobin Methemoglobin Reduced Hemoglobin Total Hemoglobin O2 Delivery Device O2 Liters/Min Minute Volume Vent Rate Vent Mode FiO2 Tidal Volume PEEP Peak Inspir Pressure Pressure Support Sodium 135 L Potassium 4.8 Chloride 93 L Carbon Dioxide 23 Anion Gap 19 H BUN 45 H D Creatinine 5.01 H Estim Creat Clear Calc 11 Estimated GFR 11 L Glucose 261 H POC Capillary Glucose 228 H 255 H Lactic Acid 2.4 H Calcium 7.3 L Phosphorus 5.0 H Magnesium 2.0 Total Bilirubin 1.9 H AST 23 ALT 13 Alkaline Phosphatase 67 Total Protein 7.0 Albumin 3.5 10/12/24 10/12/24 04:59 07:15 WBC RBC Hgb Hct MCV MCH MCHC RDW Plt Count MPV Immature Gran % (Auto) Neut % (Auto) Lymph % (Auto) [place] % (Auto) Eos % (Auto) Baso % (Auto) Lymph # (Auto) [place] # (Auto) Eos # (Auto) Baso # (Auto) Abs Immat Gran (auto) Absolute Neuts (auto) Absolute Nucleated RBC Band Neutrophils % Nucleated RBC % Platelet Estimate % Immature Plt Fraction Poikilocytosis Anisocytosis Ovalocytes [place] Cells Schistocytes Puncture Site Artline ABG pH 7.451 H ABG pCO2 34.9 L ABG pO2 71.2 L ABG PO2/FiO2 Ratio 2.37 ABG HCO3 23.8 ABG O2 Saturation 95.1 ABG O2 Content 18.0 ABG Base Excess 0.3 A-a Gradient 101.7 Oxyhemoglobin 92.8 Carboxyhemoglobin 1.5 Methemoglobin 0.3 Reduced Hemoglobin 5.4 H Total Hemoglobin 13.8 O2 Delivery Device Ventilator O2 Liters/Min Not Reportable Minute Volume Not Reportable Vent Rate 14 Vent Mode Cmv FiO2 30 Tidal Volume 500 PEEP 5 Peak Inspir Pressure Not Reportable Pressure Support Not Reportable Sodium Potassium Chloride Carbon Dioxide Anion Gap BUN Creatinine Estim Creat Clear Calc Estimated GFR Glucose POC Capillary Glucose 263 H Lactic Acid Calcium Phosphorus Magnesium Total Bilirubin AST ALT Alkaline Phosphatase Total Protein Albumin Quality VTE Prophylaxis VTE prophylaxis: mechanical ordered
[2024-10-12 09:04] LABS: Lactic Acid 2.3 mmol/L (0.7-2.0)
[2024-10-12] MEDS: NOREPINEPHRINE BITARTRATE 16 MG in DEXTROSE 5% IN WATER 234 ML 10.31 MG IV CONT (10:14)
--- NOTE | 2024-10-12 10:50 | PCNFU ---
Nutrition Follow-Up Complete: Increased protein energy needs related to mechanical ventilation as evidenced by need for trophic tube feeding Goal: Meet estimated protein energy needs when medically able Patient is progressing towards goal. We will continue current goal. Pt current nutrition is Nepor at 20 ml/hr Nutrition recommendation: increase to goal rate of 40 ml/hr. Last recorded weight is 98.5 kg, down from 103.6 kg on admit. Bowel Motility: +BM reported 311 Labs Reviewed: Glu 261, K 5.0, Na 135 Meds Noted:Versed, Fentanyl, Vasopressin, Levophed, Lantus Skin: WNL Additional Notes: Patient current with mechanical vent. Tube feedings being increased today to 40 ml/hr of Nepro. Nursing reports 140 ml residuals overnight. Flush 30 ml q 4 hours. Tube feedings at goal rate providing 1584 kcal/66 gm protein/640 ml water. Will discuss Prosource tomorrow once patient tolerates tube feedings at goal rate. Sedation is on hold for sedation holiday at this time. Monitoring vitals, labs, meds, weights, TF tolerance, output Following daily in rounds. Reassess Tuesdays and Fridays.
[2024-10-12] MEDS: cefTRIAXone 2 GM/NS 100 ML 2 GM/100 ML BAG IVPB (11:17)
[2024-10-12 12:04] LABS: Glucose Point of Care 240 mg/dl (65-105)
[2024-10-12] MEDS: AZITHROMYCIN 500 MG/NS 250 ML 500 MG/250 ML BAG 250 MG IVPB (12:10)
[2024-10-12] MEDS: ALBUMIN HUMAN 25% 25 GM/100 ML 100 ML IVPB (13:29)
[2024-10-12 16:02] LABS: Glucose Point of Care 257 mg/dl (65-105)
--- NOTE | 2024-10-12 16:05 | P.PNNP_ITS ---
Progress Note: A&P Assessment and Plan (1) End-stage renal disease (ESRD): Code(s): N18.6 - End stage renal disease Status: Chronic Assessment and Plan: * HD tomorrow * continue Fri/Fri/Friday dialysis schedule next week while hospitalized * follow electrolytes, volume status, and clearance (2) Septic shock: Code(s): A41.9 - Sepsis, unspecified organism; R65.21 - Severe sepsis with septic shock Status: Acute Assessment and Plan: * as noted on presentation - AMS + acute on chronic hypotension + lactic acidosis * complicated by chronic hypotension at baseline * presumed to be secondary to bacteremia, pneumonia and influenza * culture data noted: * blood cultures (on 10/08) wtih Streptococcus mitis * blood cultures (on 10/10) with no growth to date * s/p IVFs and IV albumin for volume expansion * requiring vasopressor therapy to maintain MAP/blood pressure * wean as tolerated * Echo ordered * stress dose steroids * follow hemodynamics (3) Acute respiratory failure: Code(s): J96.00 - Acute respiratory failure, unspecified whether with hypoxia or hypercapnia Status: Acute Assessment and Plan: * multifactorial: * pneumonia * altered mental status * need for airway protection * fluid * intubated on 10/08 in ER * on bronchodilators * fluid removal with dialysis as tolerated * dry ultrafiltration today (4) Bacteremia: Code(s): R78.81 - Bacteremia Status: Acute Assessment and Plan: * 10/08 blood cultures with Streptococcus mitis * 10/10 repeat set of blood culture with growth to date * on antibiotics * see #2 (5) Influenza A: Code(s): J10.1 - Influenza due to other identified influenza virus with other respiratory manifestations Status: Acute Assessment and Plan: * as noted by testing in ER * on Tamiflu (renally dosed) * respiratory isolation (6) Pneumonia: Code(s): J18.9 - Pneumonia, unspecified organism Status: Acute Assessment and Plan: * suggested by recent imaging (CXR + CT scan) * on antibiotics (7) Altered mental status: Code(s): R41.82 - Altered mental status, unspecified Status: Acute Assessment and Plan: * noted in ER prior to intubatnio * presumably due to acute illness (infection/sepsis/shock...etc) * negative head CT * reassess once extubated (8) Anemia: Qualifiers: Anemia type: unspecified type Qualified Code(s): D64.9 - Anemia, unspecified Code(s): D64.9 - Anemia, unspecified Status: Chronic Assessment and Plan: * due to ESRD * hold Retacrit since Hgb > 10 * follow trend of H/H (9) Diabetes: Qualifiers: Diabetes mellitus type: type 2 Diabetes mellitus manager intermediate insulin use: without jail use Diabetes mellitus complication status: with kidney complications Diabetes mellitus complication detail: with chronic kidney disease Chronic kidney disease stage: on chronic dialysis Qualified Code(s): E 11.22 - Type 2 diabetes mellitus with diabetic chronic kidney disease; N18.6 - End stage renal disease; Z99.2 - Dependence on renal dialysis Code(s): E11.9 - Type 2 diabetes mellitus without complications Status: Chronic Assessment and Plan: * follow accu-cheks * 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 L Subjective Date/time seen: 10/12/24 16:05 Interval history: Follow-up for end stage renal disease on hemodialysis. Seen earlier this morning and while on dry ultrafiltration treatment (seen on DUF at 3:55PM); remains intubated/sedated and on mechanical ventilation; still requiring vasopressor therapy to maintain MAP/blood pressure; no other issues/events overnight or earlier this morning. Exam 2 Narrative: General: elderly male intubated/sedated and on mechanical ventilation Heart: IRRR,normal S1 and S2; no rub Lungs: coarse breath sounds Abdomen: soft, nontender, nondistended, positive bowel sounds Extremities: no cyanosis or clubbing; chonic edema Skin: warm and intact Objective Data Vital Signs Vital Signs: Vital Signs Temp Pulse Resp BP Pulse Ox O2 Del Method FiO2 10/12/24 16:00 97.5 F L 68 14 126/63 97 30 10/12/24 15:45 64 128/64 10/12/24 15:30 65 126/63 10/12/24 15:15 65 118/60 10/12/24 15:00 63 113/57 L 10/12/24 14:45 69 108/58 L 10/12/24 14:31 62 17 10/12/24 14:31 62 97 Mechanical Ventilation 30 10/12/24 14:30 65 130/54 L 10/12/24 14:15 72 101/54 L 10/12/24 14:00 71 10/12/24 14:00 65 14 10/12/24 14:00 65 102/53 L 10/12/24 14:00 65 102/55 L 10/12/24 14:00 72 14 10/12/24 14:00 96.6 F L 70 14 100/54 L 97 10/12/24 14:00 69 99/54 L 10/12/24 13:45 70 95/52 L 10/12/24 13:30 72 82/52 L 10/12/24 13:20 30 10/12/24 13:20 76 94/50 L 10/12/24 13:10 68 89/51 L 10/12/24 13:05 76 87/43 L 10/12/24 13:05 98.2 F 69 15 92/50 L 94 10/12/24 12:00 30 10/12/24 12:00 70 10/12/24 12:00 97.7 F 61 10 L 98/52 L 96 10/12/24 12:00 65 14 10/12/24 12:00 65 14 10/12/24 12:00 65 103/53 L 10/12/24 12:00 65 103/53 L 10/12/24 11:19 72 87/52 L 10/12/24 11:14 61 92 Mechanical Ventilation 10/12/24 11:14 70 85/47 L 10/12/24 11:06 30 10/12/24 10:14 61 91/47 L 10/12/24 10:14 61 91/47 L 10/12/24 10:00 65 10/12/24 10:00 97.4 F L 65 14 96/50 L 93 10/12/24 10:00 67 14 10/12/24 10:00 67 95/49 L 10/12/24 10:00 67 94/48 L 10/12/24 10:00 67 14 10/12/24 08:15 57 L 14 10/12/24 08:15 58 L 14 10/12/24 08:00 55 L 10/12/24 08:00 21 10/12/24 08:00 60 14 10/12/24 08:00 60 95/47 L 10/12/24 08:00 60 95/47 L 10/12/24 08:00 60 14 10/12/24 08:00 98.6 F 59 L 14 96/47 L 98 10/12/24 08:00 60 14 10/12/24 08:00 60 93 Mechanical Ventilation 21 10/12/24 06:00 56 L 10/12/24 06:00 57 L 26 H 96/47 L 98 10/12/24 06:00 55 L 14 10/12/24 06:00 55 L 93/47 L 10/12/24 06:00 55 L 93/47 L 10/12/24 06:00 55 L 14 10/12/24 05:20 59 L 88/55 L 10/12/24 05:00 65 94 Mechanical Ventilation 10/12/24 04:32 55 L 105/51 L 10/12/24 04:00 30 10/12/24 04:00 58 L 10/12/24 04:00 56 L 14 96 Mechanical Ventilation 10/12/24 04:00 56 L 14 10/12/24 04:00 56 L 103/52 L 10/12/24 04:00 56 L 103/52 L 10/12/24 04:00 56 L 14 10/12/24 04:00 98.5 F 55 L 26 H 99/47 L 97 10/12/24 03:37 56 L 106/51 L 10/12/24 03:06 53 L 107/53 L 10/12/24 02:38 56 L 111/54 L 10/12/24 02:12 59 L 107/54 L 10/12/24 02:09 61 14 10/12/24 02:00 59 L 14 108/54 L 96 10/12/24 02:00 57 L 10/12/24 02:00 61 14 10/12/24 02:00 61 107/57 L 10/12/24 02:00 62 107/57 L 10/12/24 01:49 65 94 Mechanical Ventilation 10/12/24 01:44 68 14 10/12/24 01:40 61 86/46 L 10/12/24 00:45 60 14 95 10/12/24 00:30 67 14 94 10/12/24 00:30 65 105/46 L 10/12/24 00:15 60 14 95 10/12/24 00:15 30 10/12/24 00:15 62 14 96 Mechanical Ventilation 30 10/12/24 00:15 62 99/51 L 10/12/24 00:00 56 L 15 96 10/12/24 00:00 98.3 F 62 26 H 96/49 L 95 10/12/24 00:00 62 14 10/12/24 00:00 62 98/50 L 10/12/24 00:00 62 98/50 L 10/12/24 00:00 62 14 10/11/24 23:45 63 14 95 10/11/24 23:30 62 14 95 10/11/24 23:15 59 L 14 95 10/11/24 23:08 65 94 Mechanical Ventilation 10/11/24 23:00 61 14 95 10/11/24 22:45 62 14 95 10/11/24 22:45 62 99/52 L 10/11/24 22:30 62 14 94 10/11/24 22:15 59 L 14 94 10/11/24 22:00 61 14 94 10/11/24 22:00 62 14 99/53 L 93 10/11/24 22:00 62 10/11/24 22:00 62 14 10/11/24 22:00 62 99/53 L 10/11/24 22:00 14 L 99/53 L 10/11/24 22:00 62 14 10/11/24 21:45 64 14 93 10/11/24 21:30 61 14 94 10/11/24 21:15 59 L 14 94 10/11/24 21:00 61 14 95 10/11/24 20:45 61 14 95 10/11/24 20:30 66 14 95 10/11/24 20:30 62 99/52 L 10/11/24 20:15 69 14 94 10/11/24 20:15 68 14 10/11/24 20:09 65 94 Mechanical Ventilation 10/11/24 20:02 68 14 10/11/24 20:00 66 14 95 10/11/24 20:00 62 14 94 Mechanical Ventilation 10/11/24 20:00 98.3 F 62 14 101/53 L 94 10/11/24 20:00 30 10/11/24 20:00 62 14 10/11/24 20:00 62 101/53 L 10/11/24 20:00 62 101/53 L 10/11/24 20:00 62 14 10/11/24 19:45 62 14 94 10/11/24 19:30 62 15 94 10/11/24 19:15 62 13 96 10/11/24 19:00 61 14 95 Intake/Output Intake/Output: Intake & Output 10/09/24 10/11/24 10/11/24 10/12/24 23:59 00:59 23:59 23:59 Intake Total 2539.6 2062.7 1580.7 1056.5 Output Total 0 100 3000 3800 Balance 2539.6 1962.7 -1419.3 -2743.5 Meds/Results Medications: Active Medications Generic Name Dose Route Start Last Admin Trade Name Freq PRN Reason Stop Dose Admin Acetaminophen 650 mg 10/08/24 20:49 Acetaminophen 650 Mg Suppository RECTAL Q6H PRN Mild Pain (1-3) or Fever Albuterol/Ipratropium 3 ml 10/09/24 14:00 10/12/24 14:28 Ipratropium 0.5 Mg/Albuterol Sulfate 2.5 Mg Ampul.Neb 3 Ml INHALATION 3 ml Q6HRT CESAR Administration Allopurinol 100 mg 10/09/24 08:00 10/12/24 08:21 Allopurinol 100 Mg Tablet PO 100 mg DAILY@0800 CESAR Administration Apixaban 2.5 mg 10/09/24 09:00 10/11/24 20:01 Apixaban 2.5 Mg Tablet PO 2.5 mg Q12HR CESAR Administration Atorvastatin Calcium 10 mg 10/09/24 09:00 10/12/24 08:21 Atorvastatin 10 Mg Tablet PO 10 mg DAILY CESAR Administration Budesonide 0.5 mg 10/09/24 20:00 10/12/24 07:55 Budesonide Respule Neb 0.5 Mg/2 Ml Amp INHALATION 0.5 mg Q12HRT CESAR Administration Dextrose 12.5 gm 10/08/24 22:06 Dextrose 50% 25 Gm/50 Ml Syringe IV PUSH PRN PRN Hypoglycemia Protocol Glucagon 1 mg 10/08/24 22:06 Glucagon For Inj 1 Mg Vial IM PRN PRN Hypoglycemia Protocol Glucose 15 gm 10/08/24 22:06 Glucose Oral Gel 15 Gm Of Glucse In 37.5 Gm Tube PO PRN PRN Hypoglycemia Protocol Hydrocortisone Sodium Succinate 100 mg 10/09/24 14:30 10/12/24 13:21 Hydrocortisone Sodium Succinate 100 Mg/2 Ml Vial IV PUSH 100 mg Q8HR CESAR Administration Dextrose 1,000 mls @ 100 mls/hr 10/08/24 22:06 Dextrose 5% 1,000 Ml IVPB PRN PRN Hypoglycemia Protocol Vasopressin 100 units/ 100 mls @ 2.4 mls/hr 10/08/24 22:45 10/12/24 16:00 Dextrose IV CONT 0.04 units/min .[id number] CESAR 2.4 mls/hr Titration Protocol 0.04 UNITS/MIN Norepinephrine Bitartrate 16 250 mls @ 13.125 mls/hr 10/09/24 19:25 10/12/24 17:01 mg/ Dextrose IV CONT 14 mcg/min .Q19H3M CESAR 13.13 mls/hr Titration Protocol 14 MCG/MIN Fentanyl Citrate 2,500 mcg in 250 mls @ 0 mls/hr 10/10/24 00:10 10/12/24 16:00 Fentanyl 2,500 Mcg/Ns 250 Ml IV CONT 0 mcg/hr .Q0M CESAR 0 mls/hr Titration Protocol Midazolam HCl 100 mg in 100 mls @ 0 mls/hr 10/10/24 00:10 10/12/24 16:00 Versed 100 Mg/Ns 100 Ml IV CONT 0 mg/hr .Q0M CESAR 0 mls/hr Titration Protocol Ceftriaxone Sodium 2 gm in 100 mls @ 200 mls/hr 10/12/24 11:15 10/12/24 12:12 Rocephin 2 Gm/Ns 100 Ml IVPB Infused DAILY CESAR Infusion Insulin Aspart 4 - 8 units 10/11/24 12:00 10/12/24 16:34 Insulin Aspart (*Bkc) 100 Units/Ml SUB-Q 5 units Q4H CESAR Administration Protocol Insulin Glargine 25 units 10/12/24 09:00 10/12/24 08:22 Insulin Glargine (*Bkc) 100 Units/Ml SUB-Q 25 units QAM CESAR Administration Multi-Ingred Cream/Lotion/Oil/Oint 1 applic 10/10/24 09:00 10/12/24 08:23 Mineral Oil/White Petrolatum Ointment EACH EYE 1 applic Q12HR CESAR Administration Mupirocin 1 applic 10/09/24 09:00 10/12/24 08:24 Mupirocin 2% Oint 22 Gm Tube EACH NARE 1 applic Q12HR CESAR Administration Oseltamivir Phosphate 30 mg 10/11/24 21:00 10/09/24 21:00 Oseltamivir Phosphate 30 Mg Capsule PO 10/12/24 21:01 Not Given [id number] CESAR Pantoprazole Sodium 40 mg 10/09/24 13:45 10/12/24 08:18 Pantoprazole Sodium Iv 40 Mg Vial IV PUSH 40 mg QAM CESAR Administration Perflutren Lipid Microsphere 0 ml 10/11/24 09:10 Perflutren Lipid Microspheres 1.5 Ml Vial Diluted To 10 Ml Total Volume IV PUSH 10/14/24 09:10 ONCE PRN adequate visualization Protocol Fluticasone/Salmeterol 2 puff 10/09/24 08:00 10/09/24 09:26 Fluticasone/Salmeterol 115-21 Mcg Inhaler 1 Puff INHALATION Not Given Q12HRT CESAR Sevelamer Carbonate 1,600 mg 10/09/24 08:00 10/12/24 16:34 Sevelamer Carbonate 800 Mg Tablet PO 1,600 mg TIDWM CESAR Administration Sodium Chloride 10 ml 10/09/24 14:00 10/12/24 13:23 Central Line Flush IV PUSH 10 ml Q8HR CESAR Administration Sodium Chloride 20 ml 10/09/24 06:24 Central Line Flush IV PUSH PRN PRN after blood draws Vancomycin HCl 1 each 10/08/24 23:03 Vancomycin For Hemodialysis IVPB 10/14/24 23:59 PRN PRN Vancomycin Protocol Radiology Results: ITS Impressions Pelvis X-Ray 10/08/24 22:22 IMPRESSION: As above. Head CT 10/08/24 23:18 IMPRESSION: No acute intracranial findings. Chest CT 10/08/24 23:27 IMPRESSION: 1. Interstitial thickening in the lower lobes which may indicate pneumonitis. Edema is less likely. 2. Cardiomegaly. 3. Cholelithiasis 4. Splenic cysts unchanged. Chest X-Ray 10/12/24 06:33 Impression: Moderate pulmonary edema pattern with small pleural effusions and discoid right mid lung atelectasis. Correlate clinically for pneumonia. Stable support tubes. Labs Labs: Laboratory Tests 10/12/24 04:23 10/12/24 04:23 Lactic Acid 2.4 H Calcium 7.3 L Phosphorus 5.0 H Magnesium 2.0 Total Bilirubin 1.9 H AST 23 ALT 13 Alkaline Phosphatase 67 Total Protein 7.0 Albumin 3.5 Microbiology 10/08/24 17:15 Blood Blood Culture - Final Streptococcus mitis group
--- NOTE | 2024-10-12 17:02 | P.PNIM_ITS ---
Progress Note: A&P Assessment and Plan (1) Sepsis: Code(s): A41.9 - Sepsis, unspecified organism Status: Acute (2) Influenza: Code(s): J11.1 - Influenza due to unidentified influenza virus with other respiratory manifestations Status: Acute (3) Pneumonia: Code(s): J18.9 - Pneumonia, unspecified organism Status: Acute (4) Altered mental status: Code(s): R41.82 - Altered mental status, unspecified Status: Acute (5) End-stage renal disease on hemodialysis: Code(s): N18.6 - End stage renal disease; Z99.2 - Dependence on renal dialysis Status: Acute (6) Type 2 diabetes mellitus with diabetic neuropathy: Qualifiers: Diabetes mellitus [employer] insulin use: without [employer] use Qualified Code(s): E11.40 - Type 2 diabetes mellitus with diabetic neuropathy, unspecified Code(s): E11.40 - Type 2 diabetes mellitus with diabetic neuropathy, unspecified Status: Chronic Plan The patient presented to the emergency department for evaluation of altered mental status following dialysis as detailed in HPI. Labs, imaging, EKG, and all reports were personally reviewed. He meets sepsis criteria with hypotension, low-grade fever, bandemia, lactic acidosis, and altered mental status in the setting of infection. He remained hypotensive following a 1.5 L normal saline bolus (more fluids were not given due to his end-stage renal disease) and he has been started on vasopressors with a target MAP of at least 65. He tested positive for influenza A and chest x-ray shows findings of possible pneumonia for which he has been started on oseltamivir and azithromycin, ceftriaxone, and vancomycin. MRSA nasal screen pending. Sputum culture ordered. There were no reports of obvious focal deficits on exam in the ED and his altered mental status may very well be related to sepsis, influenza, and hypotension. Brain CT was without acute findings. Initiate sliding scale insulin, Accu-Cheks, and hypoglycemic protocol. He will be due for dialysis on Friday. His medications will be reviewed and resumed as appropriate. Findings and treatment plan were discussed with the patient's . Questions were solicited and answered to satisfaction. The patient's medical management will be taken over by the hospitalist team in a.m. patient presented with hypotension and confusion, patient was intubated and on ventilator, patient is receiving IVF and on pressor, discussed with agricultural produce packer patient blood pressure is improving and his off pressors, patient is found to have Influenza A treated with Tamiflu patient family is not present in the room, patient is having HD patient is seen by agricultural produce packer and further recommendation to follow. Subjective Date/time seen: 10/12/24 17:02 Interval history: Altered mental status. H&P-Narrative: This is an 84-year-old male with end-stage renal disease on hemodialysis, congestive heart failure, pulmonary hypertension, type 2 diabetes mellitus, atrial fibrillation on anticoagulation, hypertension, chronic anemia, and other comorbidities who presented to the emergency department via EMS for evaluation of altered mental status after dialysis. He was intubated in the emergency department and the following history is obtained from the patient's as well as review of his electronic medical records. He went to dialysis at 05:00 and completed a session. His that time he has reportedly been increasingly confused, mumbling to himself and not making any sense. In the ED his only complaint was that of not feeling well but he did not elaborate. reports that he had a bit of a cough yesterday which she believes was nonproductive. There were no reports of fever, cold and flu symptoms, vomiting, or diarrhea. In the ED: Vital signs on arrival include a temperature of 99.8?, blood pressure 72/37, pulse 87, respiratory 22, SpO2 95%. Labs were significant for WBC count of 7.9 with 10 bands noted on manual differential, sodium 136, chloride 92, carbon dioxide 34, BUN 26, creatinine 3.68, lactic acid 2.9, calcium 7.9, total bilirubin 2.1. He tested positive for influenza A. Chest x-ray showed bilateral social pneumonitis versus pulmonary edema. Blood pressure continue to drift down words and he was given a 1500 mL bolus of normal saline without much improvement. The decision was made to put in the central line and start the patient on vasopressors however the patient had difficulties lying still for central line placement and he was sedated and eventually intubated and he is being admitted to the ICU in this setting with hypotension, influenza, pneumonia, and altered mental status. patient presented with hypotension and confusion, patient was intubated and on ventilator, patient is receiving IVF and on pressor, discussed with agricultural produce packer patient blood pressure is improving and his off pressors, patient is found to have Influenza A treated with Tamiflu patient family is not present in the room, patient is having HD patient is seen by agricultural produce packer and further recommendation to follow. Review of Systems Review of Systems: ROS unobtainable: Yes unobtainable due to endotracheal tube Exam Narrative: Patient is comfortable, NAD HEENT: ET tube in place LUNGS:CTA HEART: RR S1S2 ABD: BS+, Soft and nontender Lower extremities: no edema SKIN: nonjaundiced Neuro: On vent and sedated Objective Data Vital Signs Vital Signs: Vital Signs - 24 hr 10/11/24 17:21 10/11/24 18:00 10/11/24 19:00 Temperature Pulse Rate 63 62 61 Respiratory Rate 14 14 Blood Pressure 107/55 L 101/52 L Pulse Oximetry 94 95 Oxygen Delivery Fraction of Inspired Oxygen 10/11/24 19:15 10/11/24 19:30 10/11/24 19:45 Temperature Pulse Rate 62 62 62 Respiratory Rate 13 15 14 Blood Pressure Pulse Oximetry 96 94 94 Oxygen Delivery Fraction of Inspired Oxygen 10/11/24 20:00 10/11/24 20:00 10/11/24 20:00 Temperature Pulse Rate 62 62 62 Respiratory Rate 14 Blood Pressure 101/53 L 101/53 L Pulse Oximetry Oxygen Delivery Fraction of Inspired Oxygen 10/11/24 20:00 10/11/24 20:00 10/11/24 20:00 Temperature 36.8 C Pulse Rate 62 62 Respiratory Rate 14 14 Blood Pressure 101/53 L Pulse Oximetry 94 Oxygen Delivery Fraction of Inspired Oxygen 30 10/11/24 20:00 10/11/24 20:00 10/11/24 20:02 Temperature Pulse Rate 62 66 68 Respiratory Rate 14 14 14 Blood Pressure Pulse Oximetry 94 95 Oxygen Delivery Mechanical Ventilation Fraction of Inspired Oxygen 30 10/11/24 20:09 10/11/24 20:15 10/11/24 20:15 Temperature Pulse Rate 65 68 69 Respiratory Rate 14 14 Blood Pressure Pulse Oximetry 94 94 Oxygen Delivery Mechanical Ventilation Fraction of Inspired Oxygen 30 10/11/24 20:30 10/11/24 20:30 10/11/24 20:45 Temperature Pulse Rate 62 66 61 Respiratory Rate 14 14 Blood Pressure 99/52 L Pulse Oximetry 95 95 Oxygen Delivery Fraction of Inspired Oxygen 10/11/24 21:00 10/11/24 21:15 10/11/24 21:30 Temperature Pulse Rate 61 59 L 61 Respiratory Rate 14 14 14 Blood Pressure Pulse Oximetry 95 94 94 Oxygen Delivery Fraction of Inspired Oxygen 10/11/24 21:45 10/11/24 22:00 10/11/24 22:00 Temperature Pulse Rate 64 62 14 L Respiratory Rate 14 14 Blood Pressure 99/53 L Pulse Oximetry 93 Oxygen Delivery Fraction of Inspired Oxygen 10/11/24 22:00 10/11/24 22:00 10/11/24 22:00 Temperature Pulse Rate 62 62 62 Respiratory Rate 14 Blood Pressure 99/53 L Pulse Oximetry Oxygen Delivery Fraction of Inspired Oxygen 10/11/24 22:00 10/11/24 22:00 10/11/24 22:15 Temperature Pulse Rate 62 61 59 L Respiratory Rate 14 14 14 Blood Pressure 99/53 L Pulse Oximetry 93 94 94 Oxygen Delivery Fraction of Inspired Oxygen 10/11/24 22:30 10/11/24 22:45 10/11/24 22:45 Temperature Pulse Rate 62 62 62 Respiratory Rate 14 14 Blood Pressure 99/52 L Pulse Oximetry 94 95 Oxygen Delivery Fraction of Inspired Oxygen 10/11/24 23:00 10/11/24 23:08 10/11/24 23:15 Temperature Pulse Rate 61 65 59 L Respiratory Rate 14 14 Blood Pressure Pulse Oximetry 95 94 95 Oxygen Delivery Mechanical Ventilation Fraction of Inspired Oxygen 30 10/11/24 23:30 10/11/24 23:45 10/12/24 00:00 Temperature Pulse Rate 62 63 62 Respiratory Rate 14 14 14 Blood Pressure Pulse Oximetry 95 95 Oxygen Delivery Fraction of Inspired Oxygen 10/12/24 00:00 10/12/24 00:00 10/12/24 00:00 Temperature Pulse Rate 62 62 62 Respiratory Rate 14 Blood Pressure 98/50 L 98/50 L Pulse Oximetry Oxygen Delivery Fraction of Inspired Oxygen 10/12/24 00:00 10/12/24 00:00 10/12/24 00:15 Temperature 36.8 C Pulse Rate 62 56 L 62 Respiratory Rate 26 H 15 Blood Pressure 96/49 L 99/51 L Pulse Oximetry 95 96 Oxygen Delivery Fraction of Inspired Oxygen 10/12/24 00:15 10/12/24 00:15 10/12/24 00:15 Temperature Pulse Rate 62 60 Respiratory Rate 14 14 Blood Pressure Pulse Oximetry 96 95 Oxygen Delivery Mechanical Ventilation Fraction of Inspired Oxygen 30 30 10/12/24 00:30 10/12/24 00:30 10/12/24 00:45 Temperature Pulse Rate 65 67 60 Respiratory Rate 14 14 Blood Pressure 105/46 L Pulse Oximetry 94 95 Oxygen Delivery Fraction of Inspired Oxygen 10/12/24 01:40 10/12/24 01:44 10/12/24 01:49 Temperature Pulse Rate 61 68 65 Respiratory Rate 14 Blood Pressure 86/46 L Pulse Oximetry 94 Oxygen Delivery Mechanical Ventilation Fraction of Inspired Oxygen 30 10/12/24 02:00 10/12/24 02:00 10/12/24 02:00 Temperature Pulse Rate 62 61 61 Respiratory Rate 14 Blood Pressure 107/57 L 107/57 L Pulse Oximetry Oxygen Delivery Fraction of Inspired Oxygen 10/12/24 02:00 10/12/24 02:00 10/12/24 02:09 Temperature Pulse Rate 57 L 59 L 61 Respiratory Rate 14 14 Blood Pressure 108/54 L Pulse Oximetry 96 Oxygen Delivery Fraction of Inspired Oxygen 10/12/24 02:12 10/12/24 02:38 10/12/24 03:06 Temperature Pulse Rate 59 L 56 L 53 L Respiratory Rate Blood Pressure 107/54 L 111/54 L 107/53 L Pulse Oximetry Oxygen Delivery Fraction of Inspired Oxygen 10/12/24 03:37 10/12/24 04:00 10/12/24 04:00 Temperature 36.9 C Pulse Rate 56 L 55 L 56 L Respiratory Rate 26 H 14 Blood Pressure 106/51 L 99/47 L Pulse Oximetry 97 Oxygen Delivery Fraction of Inspired Oxygen 10/12/24 04:00 10/12/24 04:00 10/12/24 04:00 Temperature Pulse Rate 56 L 56 L 56 L Respiratory Rate 14 Blood Pressure 103/52 L 103/52 L Pulse Oximetry Oxygen Delivery Fraction of Inspired Oxygen 10/12/24 04:00 10/12/24 04:00 10/12/24 04:00 Temperature Pulse Rate 56 L 58 L Respiratory Rate 14 Blood Pressure Pulse Oximetry 96 Oxygen Delivery Mechanical Ventilation Fraction of Inspired Oxygen 30 30 10/12/24 04:32 10/12/24 05:00 10/12/24 05:20 Temperature Pulse Rate 55 L 65 59 L Respiratory Rate Blood Pressure 105/51 L 88/55 L Pulse Oximetry 94 Oxygen Delivery Mechanical Ventilation Fraction of Inspired Oxygen 30 10/12/24 06:00 10/12/24 06:00 10/12/24 06:00 Temperature Pulse Rate 55 L 55 L 55 L Respiratory Rate 14 Blood Pressure 93/47 L 93/47 L Pulse Oximetry Oxygen Delivery Fraction of Inspired Oxygen 10/12/24 06:00 10/12/24 06:00 10/12/24 06:00 Temperature Pulse Rate 55 L 57 L 56 L Respiratory Rate 14 26 H Blood Pressure 96/47 L Pulse Oximetry 98 Oxygen Delivery Fraction of Inspired Oxygen 10/12/24 08:00 10/12/24 08:00 10/12/24 08:00 Temperature 37.0 C Pulse Rate 60 60 59 L Respiratory Rate 14 14 Blood Pressure 96/47 L Pulse Oximetry 93 98 Oxygen Delivery Mechanical Ventilation Fraction of Inspired Oxygen 21 10/12/24 08:00 10/12/24 08:00 10/12/24 08:00 Temperature Pulse Rate 60 60 60 Respiratory Rate 14 Blood Pressure 95/47 L 95/47 L Pulse Oximetry Oxygen Delivery Fraction of Inspired Oxygen 10/12/24 08:00 10/12/24 08:00 10/12/24 08:00 Temperature Pulse Rate 60 55 L Respiratory Rate 14 Blood Pressure Pulse Oximetry Oxygen Delivery Fraction of Inspired Oxygen 21 10/12/24 08:15 10/12/24 08:15 10/12/24 10:00 Temperature Pulse Rate 58 L 57 L 67 Respiratory Rate 14 14 14 Blood Pressure Pulse Oximetry Oxygen Delivery Fraction of Inspired Oxygen 10/12/24 10:00 10/12/24 10:00 10/12/24 10:00 Temperature Pulse Rate 67 67 67 Respiratory Rate 14 Blood Pressure 94/48 L 95/49 L Pulse Oximetry Oxygen Delivery Fraction of Inspired Oxygen 10/12/24 10:00 10/12/24 10:00 10/12/24 10:14 Temperature 36.3 C L Pulse Rate 65 65 61 Respiratory Rate 14 Blood Pressure 96/50 L 91/47 L Pulse Oximetry 93 Oxygen Delivery Fraction of Inspired Oxygen 10/12/24 10:14 10/12/24 11:06 10/12/24 11:14 Temperature Pulse Rate 61 70 Respiratory Rate Blood Pressure 91/47 L 85/47 L Pulse Oximetry Oxygen Delivery Fraction of Inspired Oxygen 30 10/12/24 11:14 10/12/24 11:19 10/12/24 12:00 Temperature Pulse Rate 61 72 65 Respiratory Rate Blood Pressure 87/52 L 103/53 L Pulse Oximetry 92 Oxygen Delivery Mechanical Ventilation Fraction of Inspired Oxygen 21 10/12/24 12:00 10/12/24 12:00 10/12/24 12:00 Temperature Pulse Rate 65 65 65 Respiratory Rate 14 14 Blood Pressure 103/53 L Pulse Oximetry Oxygen Delivery Fraction of Inspired Oxygen 10/12/24 12:00 10/12/24 12:00 10/12/24 12:00 Temperature 36.5 C Pulse Rate 61 70 Respiratory Rate 10 L Blood Pressure 98/52 L Pulse Oximetry 96 Oxygen Delivery Fraction of Inspired Oxygen 30 10/12/24 13:05 10/12/24 13:05 10/12/24 13:10 Temperature 36.8 C Pulse Rate 69 76 68 Respiratory Rate 15 Blood Pressure 92/50 L 87/43 L 89/51 L Pulse Oximetry 94 Oxygen Delivery Fraction of Inspired Oxygen 10/12/24 13:20 10/12/24 13:20 10/12/24 13:30 Temperature Pulse Rate 76 72 Respiratory Rate Blood Pressure 94/50 L 82/52 L Pulse Oximetry Oxygen Delivery Fraction of Inspired Oxygen 30 10/12/24 13:45 10/12/24 14:00 10/12/24 14:00 Temperature 35.9 C L Pulse Rate 70 69 70 Respiratory Rate 14 Blood Pressure 95/52 L 99/54 L 100/54 L Pulse Oximetry 97 Oxygen Delivery Fraction of Inspired Oxygen 10/12/24 14:00 10/12/24 14:00 10/12/24 14:00 Temperature Pulse Rate 72 65 65 Respiratory Rate 14 Blood Pressure 102/55 L 102/53 L Pulse Oximetry Oxygen Delivery Fraction of Inspired Oxygen 10/12/24 14:00 10/12/24 14:00 10/12/24 14:15 Temperature Pulse Rate 65 71 72 Respiratory Rate 14 Blood Pressure 101/54 L Pulse Oximetry Oxygen Delivery Fraction of Inspired Oxygen 10/12/24 14:30 10/12/24 14:31 10/12/24 14:31 Temperature Pulse Rate 65 62 62 Respiratory Rate 17 Blood Pressure 130/54 L Pulse Oximetry 97 Oxygen Delivery Mechanical Ventilation Fraction of Inspired Oxygen 30 10/12/24 14:45 10/12/24 15:00 10/12/24 15:15 Temperature Pulse Rate 69 63 65 Respiratory Rate Blood Pressure 108/58 L 113/57 L 118/60 Pulse Oximetry Oxygen Delivery Fraction of Inspired Oxygen 10/12/24 15:30 10/12/24 15:45 10/12/24 16:00 Temperature Pulse Rate 65 64 67 Respiratory Rate Blood Pressure 126/63 128/64 124/61 Pulse Oximetry Oxygen Delivery Fraction of Inspired Oxygen 10/12/24 16:00 10/12/24 16:00 10/12/24 16:00 Temperature Pulse Rate 70 60 Respiratory Rate 14 14 Blood Pressure Pulse Oximetry Oxygen Delivery Fraction of Inspired Oxygen 30 10/12/24 16:00 10/12/24 16:00 10/12/24 16:00 Temperature 36.4 C L Pulse Rate 60 60 68 Respiratory Rate 14 Blood Pressure 128/66 122/66 126/63 Pulse Oximetry 97 Oxygen Delivery Fraction of Inspired Oxygen 10/12/24 16:15 10/12/24 16:20 10/12/24 16:20 Temperature Pulse Rate 60 66 66 Respiratory Rate Blood Pressure 127/62 128/62 145/75 H Pulse Oximetry Oxygen Delivery Fraction of Inspired Oxygen 10/12/24 16:25 10/12/24 16:30 10/12/24 16:33 Temperature 36.5 C Pulse Rate 70 64 64 Respiratory Rate 12 Blood Pressure 141/72 H 140/71 143/73 H Pulse Oximetry 98 Oxygen Delivery Fraction of Inspired Oxygen 10/12/24 16:40 10/12/24 17:01 Temperature Pulse Rate 60 64 Respiratory Rate Blood Pressure 140/70 120/59 L Pulse Oximetry Oxygen Delivery Fraction of Inspired Oxygen Intake/Output Intake/Output: Intake & Output 10/09/24 10/11/24 10/11/24 10/12/24 23:59 00:59 23:59 23:59 Intake Total 2539.6 2062.7 1580.7 1056.5 Output Total 0 100 3000 3800 Balance 2539.6 1962.7 -1419.3 -2743.5 Meds/Results Medications: Active Medications Generic Name Dose Route Start Last Admin Trade Name Freq PRN Reason Stop Dose Admin Acetaminophen 650 mg 10/08/24 20:49 Acetaminophen 650 Mg Suppository RECTAL Q6H PRN Mild Pain (1-3) or Fever Albuterol/Ipratropium 3 ml 10/09/24 14:00 10/12/24 14:28 Ipratropium 0.5 Mg/Albuterol Sulfate 2.5 Mg Ampul.Neb 3 Ml INHALATION 3 ml Q6HRT CESAR Administration Allopurinol 100 mg 10/09/24 08:00 10/12/24 08:21 Allopurinol 100 Mg Tablet PO 100 mg DAILY@0800 CESAR Administration Apixaban 2.5 mg 10/09/24 09:00 10/11/24 20:01 Apixaban 2.5 Mg Tablet PO 2.5 mg Q12HR CESAR Administration Atorvastatin Calcium 10 mg 10/09/24 09:00 10/12/24 08:21 Atorvastatin 10 Mg Tablet PO 10 mg DAILY CESAR Administration Budesonide 0.5 mg 10/09/24 20:00 10/12/24 07:55 Budesonide Respule Neb 0.5 Mg/2 Ml Amp INHALATION 0.5 mg Q12HRT CESAR Administration Dextrose 12.5 gm 10/08/24 22:06 Dextrose 50% 25 Gm/50 Ml Syringe IV PUSH PRN PRN Hypoglycemia Protocol Glucagon 1 mg 10/08/24 22:06 Glucagon For Inj 1 Mg Vial IM PRN PRN Hypoglycemia Protocol Glucose 15 gm 10/08/24 22:06 Glucose Oral Gel 15 Gm Of Glucse In 37.5 Gm Tube PO PRN PRN Hypoglycemia Protocol Hydrocortisone Sodium Succinate 100 mg 10/09/24 14:30 10/12/24 13:21 Hydrocortisone Sodium Succinate 100 Mg/2 Ml Vial IV PUSH 100 mg Q8HR CESAR Administration Dextrose 1,000 mls @ 100 mls/hr 10/08/24 22:06 Dextrose 5% 1,000 Ml IVPB PRN PRN Hypoglycemia Protocol Vasopressin 100 units/ 100 mls @ 2.4 mls/hr 10/08/24 22:45 10/12/24 16:00 Dextrose IV CONT 0.04 units/min .[id number] CESAR 2.4 mls/hr Titration Protocol 0.04 UNITS/MIN Norepinephrine Bitartrate 16 250 mls @ 14.063 mls/hr 10/09/24 19:25 10/12/24 17:01 mg/ Dextrose IV CONT 14 mcg/min .[id number] CESAR 13.13 mls/hr Titration Protocol 15 MCG/MIN Fentanyl Citrate 2,500 mcg in 250 mls @ 0 mls/hr 10/10/24 00:10 10/12/24 16:00 Fentanyl 2,500 Mcg/Ns 250 Ml IV CONT 0 mcg/hr .Q0M CESAR 0 mls/hr Titration Protocol Midazolam HCl 100 mg in 100 mls @ 0 mls/hr 10/10/24 00:10 10/12/24 16:00 Versed 100 Mg/Ns 100 Ml IV CONT 0 mg/hr .Q0M CESAR 0 mls/hr Titration Protocol Ceftriaxone Sodium 2 gm in 100 mls @ 200 mls/hr 10/12/24 11:15 10/12/24 12:12 Rocephin 2 Gm/Ns 100 Ml IVPB Infused DAILY CESAR Infusion Insulin Aspart 4 - 8 units 10/11/24 12:00 10/12/24 16:34 Insulin Aspart (*Bkc) 100 Units/Ml SUB-Q 5 units Q4H CESAR Administration Protocol Insulin Glargine 25 units 10/12/24 09:00 10/12/24 08:22 Insulin Glargine (*Bkc) 100 Units/Ml SUB-Q 25 units QAM CESAR Administration Multi-Ingred Cream/Lotion/Oil/Oint 1 applic 10/10/24 09:00 10/12/24 08:23 Mineral Oil/White Petrolatum Ointment EACH EYE 1 applic Q12HR CESAR Administration Mupirocin 1 applic 10/09/24 09:00 10/12/24 08:24 Mupirocin 2% Oint 22 Gm Tube EACH NARE 1 applic Q12HR CESAR Administration Oseltamivir Phosphate 30 mg 10/11/24 21:00 10/09/24 21:00 Oseltamivir Phosphate 30 Mg Capsule PO 10/12/24 21:01 Not Given [id number] CESAR Pantoprazole Sodium 40 mg 10/09/24 13:45 10/12/24 08:18 Pantoprazole Sodium Iv 40 Mg Vial IV PUSH 40 mg QAM CESAR Administration Perflutren Lipid Microsphere 0 ml 10/11/24 09:10 Perflutren Lipid Microspheres 1.5 Ml Vial Diluted To 10 Ml Total Volume IV PUSH 10/14/24 09:10 ONCE PRN adequate visualization Protocol Fluticasone/Salmeterol 2 puff 10/09/24 08:00 10/09/24 09:26 Fluticasone/Salmeterol 115-21 Mcg Inhaler 1 Puff INHALATION Not Given Q12HRT CESAR Sevelamer Carbonate 1,600 mg 10/09/24 08:00 10/12/24 16:34 Sevelamer Carbonate 800 Mg Tablet PO 1,600 mg TIDWM CESAR Administration Sodium Chloride 10 ml 10/09/24 14:00 10/12/24 13:23 Central Line Flush IV PUSH 10 ml Q8HR CESAR Administration Sodium Chloride 20 ml 10/09/24 06:24 Central Line Flush IV PUSH PRN PRN after blood draws Vancomycin HCl 1 each 10/08/24 23:03 Vancomycin For Hemodialysis IVPB 10/14/24 23:59 PRN PRN Vancomycin Protocol Radiology Results: ITS Impressions Pelvis X-Ray 10/08/24 22:22 IMPRESSION: As above. Head CT 10/08/24 23:18 IMPRESSION: No acute intracranial findings. Chest CT 10/08/24 23:27 IMPRESSION: 1. Interstitial thickening in the lower lobes which may indicate pneumonitis. Edema is less likely. 2. Cardiomegaly. 3. Cholelithiasis 4. Splenic cysts unchanged. Chest X-Ray 10/12/24 06:33 Impression: Moderate pulmonary edema pattern with small pleural effusions and discoid right mid lung atelectasis. Correlate clinically for pneumonia. Stable support tubes. Labs Labs: Laboratory Results - last 24 hr 10/11/24 10/12/24 10/12/24 20:00 00:08 04:09 WBC RBC Hgb Hct MCV MCH MCHC RDW Plt Count MPV Immature Gran % (Auto) Neut % (Auto) Lymph % (Auto) [place] % (Auto) Eos % (Auto) Baso % (Auto) Lymph # (Auto) [place] # (Auto) Eos # (Auto) Baso # (Auto) Abs Immat Gran (auto) Absolute Neuts (auto) Absolute Nucleated RBC Band Neutrophils % Nucleated RBC % Platelet Estimate % Immature Plt Fraction Poikilocytosis Anisocytosis Ovalocytes [place] Cells Schistocytes Puncture Site ABG pH ABG pCO2 ABG pO2 ABG PO2/FiO2 Ratio ABG HCO3 ABG O2 Saturation ABG O2 Content ABG Base Excess A-a Gradient Oxyhemoglobin Carboxyhemoglobin Methemoglobin Reduced Hemoglobin Total Hemoglobin O2 Delivery Device O2 Liters/Min Minute Volume Vent Rate Vent Mode FiO2 Tidal Volume PEEP Peak Inspir Pressure Pressure Support Sodium Potassium Chloride Carbon Dioxide Anion Gap BUN Creatinine Estim Creat Clear Calc Estimated GFR Glucose POC Capillary Glucose 247 H 228 H 255 H Lactic Acid Calcium Phosphorus Magnesium Total Bilirubin AST ALT Alkaline Phosphatase Total Protein Albumin 10/12/24 10/12/24 10/12/24 04:23 04:59 07:15 WBC 9.7 RBC 4.28 L Hgb 13.5 L Hct 41.3 L MCV 96.5 MCH 31.5 MCHC 32.7 RDW 16.1 H Plt Count 67 L MPV 11.7 H Immature Gran % (Auto) 0.6 H Neut % (Auto) 89.8 H Lymph % (Auto) 3.7 L [place] % (Auto) 5.8 Eos % (Auto) 0.0 Baso % (Auto) 0.1 L Lymph # (Auto) 0.36 L [place] # (Auto) 0.6 Eos # (Auto) 0.0 Baso # (Auto) 0.0 Abs Immat Gran (auto) 0.06 H Absolute Neuts (auto) 8.7 H Absolute Nucleated RBC 0.000 Band Neutrophils % Not Reportable Nucleated RBC % 0.0 Platelet Estimate Decreased % Immature Plt Fraction 5.5 Poikilocytosis 1+ Anisocytosis 1+ Ovalocytes 1+ [place] Cells 1+ Schistocytes None seen Puncture Site Artline ABG pH 7.451 H ABG pCO2 34.9 L ABG pO2 71.2 L ABG PO2/FiO2 Ratio 2.37 ABG HCO3 23.8 ABG O2 Saturation 95.1 ABG O2 Content 18.0 ABG Base Excess 0.3 A-a Gradient 101.7 Oxyhemoglobin 92.8 Carboxyhemoglobin 1.5 Methemoglobin 0.3 Reduced Hemoglobin 5.4 H Total Hemoglobin 13.8 O2 Delivery Device Ventilator O2 Liters/Min Not Reportable Minute Volume Not Reportable Vent Rate 14 Vent Mode Cmv FiO2 30 Tidal Volume 500 PEEP 5 Peak Inspir Pressure Not Reportable Pressure Support Not Reportable Sodium 135 L Potassium 4.8 Chloride 93 L Carbon Dioxide 23 Anion Gap 19 H BUN 45 H D Creatinine 5.01 H Estim Creat Clear Calc 11 Estimated GFR 11 L Glucose 261 H POC Capillary Glucose 263 H Lactic Acid 2.4 H Calcium 7.3 L Phosphorus 5.0 H Magnesium 2.0 Total Bilirubin 1.9 H AST 23 ALT 13 Alkaline Phosphatase 67 Total Protein 7.0 Albumin 3.5 10/12/24 10/12/24 10/12/24 08:16 11:59 16:00 WBC RBC Hgb Hct MCV MCH MCHC RDW Plt Count MPV Immature Gran % (Auto) Neut % (Auto) Lymph % (Auto) [place] % (Auto) Eos % (Auto) Baso % (Auto) Lymph # (Auto) [place] # (Auto) Eos # (Auto) Baso # (Auto) Abs Immat Gran (auto) Absolute Neuts (auto) Absolute Nucleated RBC Band Neutrophils % Nucleated RBC % Platelet Estimate % Immature Plt Fraction Poikilocytosis Anisocytosis Ovalocytes [place] Cells Schistocytes Puncture Site ABG pH ABG pCO2 ABG pO2 ABG PO2/FiO2 Ratio ABG HCO3 ABG O2 Saturation ABG O2 Content ABG Base Excess A-a Gradient Oxyhemoglobin Carboxyhemoglobin Methemoglobin Reduced Hemoglobin Total Hemoglobin O2 Delivery Device O2 Liters/Min Minute Volume Vent Rate Vent Mode FiO2 Tidal Volume PEEP Peak Inspir Pressure Pressure Support Sodium Potassium Chloride Carbon Dioxide Anion Gap BUN Creatinine Estim Creat Clear Calc Estimated GFR Glucose POC Capillary Glucose 240 H 257 H Lactic Acid 2.3 H Calcium Phosphorus Magnesium Total Bilirubin AST ALT Alkaline Phosphatase Total Protein Albumin Quality VTE Prophylaxis VTE prophylaxis: mechanical ordered
[2024-10-12 20:07] LABS: Glucose Point of Care 257 mg/dl (65-105)
[2024-10-12] MEDS: VASOPRESSIN INJ 100 UNITS in DEXTROSE 5% 95 ML IV CONT (20:56)
[2024-10-13] VITALS (74 sets, daily range): BP systolic 83–130; BP diastolic 45–74; PULSE 55–85; RESP 13–28; TEMP 36.4–37; O2SAT 96–100
[2024-10-13] MEDS: INSULIN ASPART (*BKC) 100 UNITS/ML SUB-Q ×3 (00:18→09:20)
[2024-10-13 00:22] LABS: Glucose Point of Care 228 mg/dl (65-105)
[2024-10-13] MEDS: IPRATROPIUM 0.5 MG/ALBUTEROL SULFATE 2.5 MG AMPUL.NEB 3 ML INHALATION ×4 (02:09→20:02)
[2024-10-13 04:02] LABS: Glucose Point of Care 228 mg/dl (65-105)
[2024-10-13] MEDS: NOREPINEPHRINE 8 MG/D5W 250 ML 8 MG/250 ML BAG 20.63 MG IV CONT (04:50)
[2024-10-13 05:05] LABS: Alveolar/Arterial O2 Gradient 91.1 mmHg; Base Excess ABG -1.3 mEq/l (+/-2.0); Carboxyhemoglobin 1.3 % THb (0-2.0); Fractional Inspired Oxygen 30 %; HCO3 ABG 22.5 mEq/l (22.0-26.0); Methemoglobin ABG 0.3 %THb (0-1.5); Oxygen Content ABG 18.8 %vol (16.0-22.0); Oxygen Saturation ABG 96.3 % (95.0-100.0); PCO2 ABG 35.4 mmHg (35.0-45.0); PO2 ABG 81.2 mmHg (80.0-100.0); PO2 FiO2 Ratio Arterial Blood 2.71 %; Reduced Hemoglobin 4.4 %THb (0-5.0); Total Hemoglobin 14.2 g/dL (12.0-18.0); pH ABG 7.422 (7.350-7.450)
[2024-10-13 05:07] LABS: Device VENTILATOR; Site Drawn ARTLINE
[2024-10-13 05:08] LABS: Arterial Blood Gas PEEP 5 cmH2O; Arterial Blood Gas Tidal Volume 450 ml; Arterial Blood Gas Vent Mode CMV; Arterial Blood Gas Ventilator rate 14 /MIN
[2024-10-13] MEDS: CENTRAL LINE FLUSH 10 ML IV PUSH ×3 (05:08→20:54)
[2024-10-13] MEDS: HYDROCORTISONE SODIUM SUCCINATE 100 MG/2 ML VIAL IV PUSH ×3 (05:08→20:54)
[2024-10-13 05:17] LABS: Basophils Percent Auto 0.1 % (0.2-1.2); Hematocrit 40.6 % (42.0-52.0); Hemoglobin 13.2 g/dL (14.0-18.0); Immature Granulocyte Absolute 0.08 K/mm3 (0.00-0.031); Immature Granulocyte Percent A 0.8 % (0-0.5); Immature Platelet Fraction Pct 5.8 % (0.9-11.2); Lymphocytes Absolute Auto 0.32 K/mm3 (0.9-3.2); Lymphocytes Percent Auto 3.2 % (18.3-44.2); Mean Corpuscular HGB Conc 32.5 g/dl (32-36); Mean Corpuscular Hemoglobin 30.6 pg (26-34); Mean Corpuscular Volume 94.2 fl (80-100); Mean Platelet Volume 11.8 fl (7.4-10.4); Monocytes Absolute Auto 0.6 K/mm3 (0.1-0.6); Monocytes Percent Auto 5.6 % (2.6-8.5); Neutrophils Percent Auto 90.3 % (45.5-73.1); Platelet Count Result 77 k/mm3 (150-375); Red Blood Count 4.31 M/mm3 (4.6-6.20)
[2024-10-13 05:33] LABS: Alanine Aminotransferase 12 U/L (6-50); Albumin Level 3.8 g/dL (3.5-5.1); Alkaline Phosphatase 84 U/L (38-126); Anion Gap 17 mmol/L (4-12); Aspartate Amino Transferase 23 U/L (17-59); Bilirubin,Total 1.7 mg/dL (0.2-1.3); Blood Urea Nitrogen 62 mg/dL (9-20); Calcium 7.6 mg/dL (8.4-10.2); Carbon Dioxide 23 mmol/L (22-30); Chloride 93 mmol/L (98-107); Estimated CRCL calculation 10 ml/min; Estimated Glomerular Filt Rate 9; Glucose 260 mg/dL (65-110); Magnesium 2.1 mg/dL (1.6-2.3); Phosphorus 3.9 mg/dL (2.5-4.5); Potassium 4.4 mmol/L (3.4-5.0); Sodium 133 mmol/L (137-145)
[2024-10-13 05:44] LABS: Band Neutrophils Percent 0 % (0-6); Large Platelets Present; Platelet Estimate Decreased (Adequate)
[2024-10-13 05:45] LABS: Burr Cells 1+; Ovalocytes 1+; Poikilocytosis 1+; Schistocytes None Seen
[2024-10-13 05:49] LABS: Vancomycin Random 17.8 ug/mL (10-20)
[2024-10-13] MEDS: BUDESONIDE RESPULE NEB 0.5 MG/2 ML AMP INHALATION ×2 (07:48→20:02)
[2024-10-13 08:39] LABS: Glucose Point of Care 204 mg/dl (65-105)
--- NOTE | 2024-10-13 08:54 | P.PNINT_ITS ---
Progress Note: A&P Assessment and Plan (1) Respiratory failure: Code(s): J96.90 - Respiratory failure, unspecified, unspecified whether with hypoxia or hypercapnia Status: Acute Assessment and Plan: Acute respiratory failure likely related to pneumonia, altered mental status, airway protection 10/08: Intubated -currently on CMV mode of ventilation, peep of 5, 30% FiO2 - continue bronchodilators and Pulmicort -chest x-ray reviewed, ventilator adjusted -he currently on sedation holiday. Not a candidate for weaning trial at this time. He also needs ROBERT. He is also getting dialyzed today (2) Septic shock: Code(s): A41.9 - Sepsis, unspecified organism; R65.21 - Severe sepsis with septic shock Status: Acute Assessment and Plan: Patient presented with altered mental status, hypotension, lactic acidosis -septic shock likely related to bacteremia, bilateral pneumonia along with influenza -continue azithromycin, ceftriaxone, vanc, (10/08) -10/08: Blood cultures growing strep mitis 10/10 repeat set of blood culture sent and pending -check echocardiogram -patient did receive 1500 mL in IV fluids on had upon admission -status post albumin 25% q.6 hours x4 doses for intravascular volume expansion -patient remains on Levophed and vasopressin, maintain MAP > greater than 65 mmHg or SBP greater than 100 mmHg for adequate end organ perfusion -off epinephrine infusion -continue hydrocortisone (3) Bacteremia: Code(s): R78.81 - Bacteremia Status: Acute Assessment and Plan: 10/08: Blood cultures growing strep mitis group 10/10 repeat set of blood culture sent and negative till now -continue antibiotics as above TTE as below ROBERT ordered (4) Influenza A: Code(s): J10.1 - Influenza due to other identified influenza virus with other respiratory manifestations Status: Acute Assessment and Plan: Continue Tamiflu, renally dosed (5) Pneumonia: Code(s): J18.9 - Pneumonia, unspecified organism Status: Acute Assessment and Plan: Chest x-ray showed pneumonia, CT chest showed pneumonitis, -continue antibiotics as above (6) Altered mental status: Code(s): R41.82 - Altered mental status, unspecified Status: Acute Assessment and Plan: Currently intubated and sedated Head CT was negative for any acute changes at the time presentation (7) End-stage renal disease on hemodialysis: Code(s): N18.6 - End stage renal disease; Z99.2 - Dependence on renal dialysis Status: Acute Assessment and Plan: End-stage renal disease on dialysis (M, W, F) -dialysis per Nephrology 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 terminal and repeater insulin use: without technician terminal and repeater use Diabetes mellitus complication status: with kidney complications Diabetes mellitus complication detail: with chronic kidney disease Chronic kidney disease stage: on chronic dialysis Qualified Code(s): E11.22 - Type 2 diabetes mellitus with diabetic chronic kidney disease; N18.6 - End stage renal disease; Z99.2 - Dependence on renal dialysis Code(s): E11.9 - Type 2 diabetes mellitus without complications Status: Chronic Assessment and Plan: Increase sliding scale to q.4 hours and high Increase Lantus Plan DVT prophylaxis: SCDoj Danicaliban is on hold secondary to thrombocytopenia Stress ulcer prophylaxis: Protonix Nutrition: Tube feeds Code Status: Full code Critical Care Time Spent: 30 minutes Due to a high probability of clinically significant, life threatening deterioration, the patient required my highest level of preparedness to intervene emergently and I personally spent this critical care time directly and personally managing the patient. This critical care time included obtaining a history; examining the patient; pulse oximetry; ordering and review of studies; arranging urgent treatment with development of a management plan; evaluation of patient's response to treatment; frequent reassessment; and discussions with other providers. It was exclusive of separately billable procedures and treating other patients and teaching time. Please see Assessment and Plan section and the rest of the note for further information on patient assessment and treatment This dictation may have been done utilizing a voice recognition system. Attempts have been made to correct errors. However, there may be uncorrected grammatical, spelling, and recognitions errors present. Subjective Date/time seen: 10/13/24 Overnight events reviewed. Afebrile Continues to be on mechanical ventilation 30% FiO2 Continues to be on vasopressors Levophed and vasopressin Off sedatives Patient was dialyzed yesterday. And will be dialyzed again today Tolerating tube feeds Interval history: Follow-up for end stage renal disease on hemodialysis. Review of Systems Review of Systems: ROS unobtainable: Yes unobtainable due to endotracheal tube, unobtainable due to medical condition and unobtainable due to mental status Exam Narrative: General: Sedated and intubated, in no acute distress HEENT:? Pupils equal and reactive bilaterally Neck:? Supple Respiratory:? Coarse breath sounds bilaterally, decreased at bases, no wheezing, adequate air entry Cardiac:? Irregularly irregular, bradycardic Abdomen:? Soft, nontender, nondistended, protuberant, hypoactive bowel sound Extremities:? Bilateral lower extremity edema pitting in nature, palpable pedal pulses Neuro:? Patient is intubated, sedated, he opens his eyes on stimulation but does not follow any commands, withdraws to pain in all extremity Skin:? Skin is dry and flaky Psych:? Unable to assess at this time Objective Data Vital Signs Vital Signs: Vital Signs - 24 hr 10/12/24 10:00 10/12/24 10:00 10/12/24 10:00 Temperature Pulse Rate 67 67 67 Respiratory Rate 14 Blood Pressure 94/48 L 95/49 L Pulse Oximetry Oxygen Delivery Fraction of Inspired Oxygen 10/12/24 10:00 10/12/24 10:00 10/12/24 10:00 Temperature 36.3 C L Pulse Rate 67 65 65 Respiratory Rate 14 14 Blood Pressure 96/50 L Pulse Oximetry 93 Oxygen Delivery Fraction of Inspired Oxygen 10/12/24 10:14 10/12/24 10:14 10/12/24 11:06 Temperature Pulse Rate 61 61 Respiratory Rate Blood Pressure 91/47 L 91/47 L Pulse Oximetry Oxygen Delivery Fraction of Inspired Oxygen 30 10/12/24 11:14 10/12/24 11:14 10/12/24 11:19 Temperature Pulse Rate 70 61 72 Respiratory Rate Blood Pressure 85/47 L 87/52 L Pulse Oximetry 92 Oxygen Delivery Mechanical Ventilation Fraction of Inspired Oxygen 21 10/12/24 12:00 10/12/24 12:00 10/12/24 12:00 Temperature Pulse Rate 65 65 65 Respiratory Rate 14 Blood Pressure 103/53 L 103/53 L Pulse Oximetry Oxygen Delivery Fraction of Inspired Oxygen 10/12/24 12:00 10/12/24 12:00 10/12/24 12:00 Temperature 36.5 C Pulse Rate 65 61 70 Respiratory Rate 14 10 L Blood Pressure 98/52 L Pulse Oximetry 96 Oxygen Delivery Fraction of Inspired Oxygen 10/12/24 12:00 10/12/24 13:05 10/12/24 13:05 Temperature 36.8 C Pulse Rate 69 76 Respiratory Rate 15 Blood Pressure 92/50 L 87/43 L Pulse Oximetry 94 Oxygen Delivery Fraction of Inspired Oxygen 30 10/12/24 13:10 10/12/24 13:20 10/12/24 13:20 Temperature Pulse Rate 68 76 Respiratory Rate Blood Pressure 89/51 L 94/50 L Pulse Oximetry Oxygen Delivery Fraction of Inspired Oxygen 30 10/12/24 13:30 10/12/24 13:45 10/12/24 14:00 Temperature Pulse Rate 72 70 69 Respiratory Rate Blood Pressure 82/52 L 95/52 L 99/54 L Pulse Oximetry Oxygen Delivery Fraction of Inspired Oxygen 10/12/24 14:00 10/12/24 14:00 10/12/24 14:00 Temperature 35.9 C L Pulse Rate 70 72 65 Respiratory Rate 14 14 Blood Pressure 100/54 L 102/55 L Pulse Oximetry 97 Oxygen Delivery Fraction of Inspired Oxygen 10/12/24 14:00 10/12/24 14:00 10/12/24 14:00 Temperature Pulse Rate 65 65 71 Respiratory Rate 14 Blood Pressure 102/53 L Pulse Oximetry Oxygen Delivery Fraction of Inspired Oxygen 10/12/24 14:15 10/12/24 14:30 10/12/24 14:31 Temperature Pulse Rate 72 65 62 Respiratory Rate Blood Pressure 101/54 L 130/54 L Pulse Oximetry 97 Oxygen Delivery Mechanical Ventilation Fraction of Inspired Oxygen 30 10/12/24 14:31 10/12/24 14:45 10/12/24 15:00 Temperature Pulse Rate 62 69 63 Respiratory Rate 17 Blood Pressure 108/58 L 113/57 L Pulse Oximetry Oxygen Delivery Fraction of Inspired Oxygen 10/12/24 15:15 10/12/24 15:30 10/12/24 15:45 Temperature Pulse Rate 65 65 64 Respiratory Rate Blood Pressure 118/60 126/63 128/64 Pulse Oximetry Oxygen Delivery Fraction of Inspired Oxygen 10/12/24 16:00 10/12/24 16:00 10/12/24 16:00 Temperature Pulse Rate 67 70 Respiratory Rate 14 Blood Pressure 124/61 Pulse Oximetry Oxygen Delivery Fraction of Inspired Oxygen 30 10/12/24 16:00 10/12/24 16:00 10/12/24 16:00 Temperature Pulse Rate 60 60 60 Respiratory Rate 14 Blood Pressure 128/66 122/66 Pulse Oximetry Oxygen Delivery Fraction of Inspired Oxygen 10/12/24 16:00 10/12/24 16:15 10/12/24 16:20 Temperature 36.4 C L Pulse Rate 68 60 66 Respiratory Rate 14 Blood Pressure 126/63 127/62 128/62 Pulse Oximetry 97 Oxygen Delivery Fraction of Inspired Oxygen 10/12/24 16:20 10/12/24 16:25 10/12/24 16:30 Temperature 36.5 C Pulse Rate 66 70 64 Respiratory Rate 12 Blood Pressure 145/75 H 141/72 H 140/71 Pulse Oximetry 98 Oxygen Delivery Fraction of Inspired Oxygen 10/12/24 16:33 10/12/24 16:40 10/12/24 17:01 Temperature Pulse Rate 64 60 64 Respiratory Rate Blood Pressure 143/73 H 140/70 120/59 L Pulse Oximetry Oxygen Delivery Fraction of Inspired Oxygen 10/12/24 17:20 10/12/24 18:00 10/12/24 18:00 Temperature Pulse Rate 61 69 70 Respiratory Rate 14 Blood Pressure Pulse Oximetry 96 Oxygen Delivery Mechanical Ventilation Fraction of Inspired Oxygen 30 10/12/24 18:00 10/12/24 18:00 10/12/24 18:00 Temperature Pulse Rate 70 70 70 Respiratory Rate 14 Blood Pressure 112/59 L 112/51 L Pulse Oximetry Oxygen Delivery Fraction of Inspired Oxygen 10/12/24 18:00 10/12/24 20:00 10/12/24 20:00 Temperature 36.6 C 36.6 C Pulse Rate 68 62 67 Respiratory Rate 13 26 H 14 Blood Pressure 113/57 L 108/53 L Pulse Oximetry 96 96 Oxygen Delivery Fraction of Inspired Oxygen 10/12/24 20:00 10/12/24 20:00 10/12/24 20:00 Temperature Pulse Rate 70 70 70 Respiratory Rate 14 Blood Pressure 107/55 L 107/55 L Pulse Oximetry Oxygen Delivery Fraction of Inspired Oxygen 10/12/24 20:00 10/12/24 20:00 10/12/24 20:02 Temperature Pulse Rate 62 61 Respiratory Rate Blood Pressure Pulse Oximetry 98 Oxygen Delivery Mechanical Ventilation Fraction of Inspired Oxygen 30 30 10/12/24 20:02 10/12/24 20:07 10/12/24 20:50 Temperature Pulse Rate 61 65 68 Respiratory Rate 14 14 14 Blood Pressure Pulse Oximetry 98 Oxygen Delivery Mechanical Ventilation Fraction of Inspired Oxygen 30 10/12/24 20:56 10/12/24 20:56 10/12/24 22:00 Temperature Pulse Rate 68 68 65 Respiratory Rate Blood Pressure 110/57 L 108/55 L Pulse Oximetry Oxygen Delivery Fraction of Inspired Oxygen 10/12/24 22:00 10/12/24 22:00 10/12/24 22:00 Temperature Pulse Rate 65 65 65 Respiratory Rate 14 Blood Pressure 102/52 L 102/52 L Pulse Oximetry Oxygen Delivery Fraction of Inspired Oxygen 10/12/24 22:00 10/12/24 22:00 10/12/24 23:00 Temperature 36.8 C Pulse Rate 65 73 70 Respiratory Rate 14 26 H Blood Pressure 109/58 L Pulse Oximetry 98 97 Oxygen Delivery Mechanical Ventilation Fraction of Inspired Oxygen 30 10/12/24 23:45 10/13/24 00:00 10/13/24 00:00 Temperature Pulse Rate 73 62 Respiratory Rate 14 14 Blood Pressure Pulse Oximetry 98 Oxygen Delivery Mechanical Ventilation Fraction of Inspired Oxygen 30 30 10/13/24 00:00 10/13/24 00:00 10/13/24 00:00 Temperature Pulse Rate 65 65 65 Respiratory Rate 14 Blood Pressure 101/51 L 101/51 L Pulse Oximetry Oxygen Delivery Fraction of Inspired Oxygen 10/13/24 00:00 10/13/24 00:00 10/13/24 02:00 Temperature 36.9 C Pulse Rate 64 65 58 L Respiratory Rate 26 H Blood Pressure 104/53 L Pulse Oximetry 98 Oxygen Delivery Fraction of Inspired Oxygen 10/13/24 02:00 10/13/24 02:00 10/13/24 02:00 Temperature Pulse Rate 58 L 58 L 58 L Respiratory Rate 14 Blood Pressure 107/54 L 107/51 L Pulse Oximetry Oxygen Delivery Fraction of Inspired Oxygen 10/13/24 02:00 10/13/24 02:00 10/13/24 02:09 Temperature 36.9 C Pulse Rate 58 L 65 65 Respiratory Rate 14 26 H Blood Pressure 109/57 L Pulse Oximetry 97 97 Oxygen Delivery Mechanical Ventilation Fraction of Inspired Oxygen 30 10/13/24 02:09 10/13/24 02:15 10/13/24 02:38 Temperature Pulse Rate 65 64 71 Respiratory Rate 15 14 Blood Pressure 109/55 L Pulse Oximetry Oxygen Delivery Fraction of Inspired Oxygen 10/13/24 02:38 10/13/24 03:46 10/13/24 03:48 Temperature Pulse Rate 74 74 Respiratory Rate 14 14 Blood Pressure 109/55 L Pulse Oximetry 98 98 Oxygen Delivery Mechanical Ventilation Fraction of Inspired Oxygen 30 30 10/13/24 04:00 10/13/24 04:00 10/13/24 04:00 Temperature Pulse Rate 58 L 60 60 Respiratory Rate 14 Blood Pressure 111/54 L 112/56 L Pulse Oximetry Oxygen Delivery Fraction of Inspired Oxygen 10/13/24 04:00 10/13/24 04:00 10/13/24 04:12 Temperature 36.8 C Pulse Rate 60 64 60 Respiratory Rate 28 H 14 Blood Pressure 112/56 L Pulse Oximetry 98 Oxygen Delivery Fraction of Inspired Oxygen 10/13/24 04:15 10/13/24 04:18 10/13/24 04:50 Temperature Pulse Rate 68 68 67 Respiratory Rate 14 Blood Pressure 112/58 L 112/59 L 125/62 Pulse Oximetry 97 Oxygen Delivery Fraction of Inspired Oxygen 10/13/24 04:50 10/13/24 04:55 10/13/24 05:00 Temperature Pulse Rate 62 61 62 Respiratory Rate 15 Blood Pressure 125/62 124/74 Pulse Oximetry 99 98 Oxygen Delivery Mechanical Ventilation Fraction of Inspired Oxygen 30 10/13/24 05:00 10/13/24 05:10 10/13/24 05:10 Temperature Pulse Rate 60 60 64 Respiratory Rate 15 15 Blood Pressure 124/74 121/61 124/62 Pulse Oximetry 99 99 Oxygen Delivery Fraction of Inspired Oxygen 10/13/24 05:15 10/13/24 05:15 10/13/24 05:22 Temperature Pulse Rate 66 69 61 Respiratory Rate 15 17 Blood Pressure 125/62 128/62 123/60 Pulse Oximetry 97 98 Oxygen Delivery Fraction of Inspired Oxygen 10/13/24 05:23 10/13/24 05:30 10/13/24 05:30 Temperature Pulse Rate 66 76 73 Respiratory Rate 14 Blood Pressure 123/60 126/66 127/66 Pulse Oximetry 98 Oxygen Delivery Fraction of Inspired Oxygen 10/13/24 05:35 10/13/24 05:35 10/13/24 05:39 Temperature Pulse Rate 71 66 72 Respiratory Rate 14 Blood Pressure 121/61 121/61 118/60 Pulse Oximetry 98 Oxygen Delivery Fraction of Inspired Oxygen 10/13/24 05:40 10/13/24 05:42 10/13/24 05:47 Temperature Pulse Rate 65 75 72 Respiratory Rate 15 Blood Pressure 118/61 112/58 L 108/57 L Pulse Oximetry 98 Oxygen Delivery Fraction of Inspired Oxygen 10/13/24 05:56 10/13/24 06:00 10/13/24 06:00 Temperature Pulse Rate 73 64 64 Respiratory Rate 14 14 Blood Pressure 104/54 L 102/52 L Pulse Oximetry 97 97 Oxygen Delivery Fraction of Inspired Oxygen 10/13/24 06:00 10/13/24 06:00 10/13/24 06:00 Temperature Pulse Rate 64 64 64 Respiratory Rate 14 14 Blood Pressure 102/52 L Pulse Oximetry Oxygen Delivery Fraction of Inspired Oxygen 10/13/24 06:05 10/13/24 07:20 10/13/24 07:25 Temperature 36.4 C Pulse Rate 64 72 75 Respiratory Rate 14 Blood Pressure 102/54 L 87/48 L 94/52 L Pulse Oximetry 99 Oxygen Delivery Fraction of Inspired Oxygen 10/13/24 07:25 10/13/24 07:28 10/13/24 07:28 Temperature Pulse Rate 74 74 Respiratory Rate Blood Pressure 86/45 L 87/48 L Pulse Oximetry Oxygen Delivery Fraction of Inspired Oxygen 30 10/13/24 07:35 10/13/24 07:43 10/13/24 07:48 Temperature Pulse Rate 75 75 74 Respiratory Rate 16 Blood Pressure 86/46 L 99/57 L Pulse Oximetry Oxygen Delivery Fraction of Inspired Oxygen 10/13/24 07:49 10/13/24 08:04 Temperature Pulse Rate 74 65 Respiratory Rate 15 Blood Pressure Pulse Oximetry 98 Oxygen Delivery Mechanical Ventilation Fraction of Inspired Oxygen 30 Intake/Output Intake/Output: Intake & Output 10/11/24 10/11/24 10/12/24 10/13/24 00:59 23:59 23:59 23:59 Intake Total 2062.7 1580.7 1743.4 631.9 Output Total 100 3000 3800 0 Balance 1962.7 -1419.3 -6.6 631.9 Meds/Results Medications: Active Medications Generic Name Dose Route Start Last Admin Trade Name Freq PRN Reason Stop Dose Admin Acetaminophen 650 mg 10/08/24 20:49 Acetaminophen 650 Mg Suppository RECTAL Q6H PRN Mild Pain (1-3) or Fever Albuterol/Ipratropium 3 ml 10/09/24 14:00 10/13/24 07:48 Ipratropium 0.5 Mg/Albuterol Sulfate 2.5 Mg Ampul.Neb 3 Ml INHALATION 3 ml Q6HRT CESAR Administration Allopurinol 100 mg 10/09/24 08:00 10/12/24 08:21 Allopurinol 100 Mg Tablet PO 100 mg DAILY@0800 CESAR Administration Apixaban 2.5 mg 10/09/24 09:00 10/11/24 20:01 Apixaban 2.5 Mg Tablet PO 2.5 mg Q12HR CESAR Administration Atorvastatin Calcium 10 mg 10/09/24 09:00 10/12/24 08:21 Atorvastatin 10 Mg Tablet PO 10 mg DAILY CESAR Administration Budesonide 0.5 mg 10/09/24 20:00 10/13/24 07:48 Budesonide Respule Neb 0.5 Mg/2 Ml Amp INHALATION 0.5 mg Q12HRT CESAR Administration Dextrose 12.5 gm 10/08/24 22:06 Dextrose 50% 25 Gm/50 Ml Syringe IV PUSH PRN PRN Hypoglycemia Protocol Glucagon 1 mg 10/08/24 22:06 Glucagon For Inj 1 Mg Vial IM PRN PRN Hypoglycemia Protocol Glucose 15 gm 10/08/24 22:06 Glucose Oral Gel 15 Gm Of Glucse In 37.5 Gm Tube PO PRN PRN Hypoglycemia Protocol Hydrocortisone Sodium Succinate 100 mg 10/09/24 14:30 10/13/24 05:08 Hydrocortisone Sodium Succinate 100 Mg/2 Ml Vial IV PUSH 100 mg Q8HR CESAR Administration Dextrose 1,000 mls @ 100 mls/hr 10/08/24 22:06 Dextrose 5% 1,000 Ml IVPB PRN PRN Hypoglycemia Protocol Vasopressin 100 units/ 100 mls @ 1.2 mls/hr 10/08/24 22:45 10/13/24 07:28 Dextrose IV CONT 0.02 units/min .Q72H CESAR 1.2 mls/hr Titration Protocol 0.02 UNITS/MIN Fentanyl Citrate 2,500 mcg in 250 mls @ 0 mls/hr 10/10/24 00:10 10/13/24 06:00 Fentanyl 2,500 Mcg/Ns 250 Ml IV CONT 0 mcg/hr .Q0M CESAR 0 mls/hr Titration Protocol Midazolam HCl 100 mg in 100 mls @ 0 mls/hr 10/10/24 00:10 10/13/24 06:00 Versed 100 Mg/Ns 100 Ml IV CONT 0 mg/hr .Q0M CESAR 0 mls/hr Titration Protocol Ceftriaxone Sodium 2 gm in 100 mls @ 200 mls/hr 10/12/24 11:15 10/12/24 12:12 Rocephin 2 Gm/Ns 100 Ml IVPB Infused DAILY CESAR Infusion Norepinephrine Bitartrate 8 mg in 250 mls @ 18.75 mls/hr 10/13/24 05:05 10/13/24 07:35 Levophed 8 Mg/D5w 250 Ml IV CONT 10 mcg/min .[id number] CESAR 18.75 mls/hr Titration Protocol 10 MCG/MIN Vancomycin HCl 750 mg in 250 mls @ 250 mls/hr 10/13/24 17:00 Vancomycin 750 Mg/Ns 250 Ml IVPB 10/13/24 17:59 ONCE ONE Insulin Aspart 4 - 8 units 10/11/24 12:00 10/13/24 04:14 Insulin Aspart (*Bkc) 100 Units/Ml SUB-Q 4 units Q4H CESAR Administration Protocol Insulin Glargine 35 units 10/13/24 09:00 Insulin Glargine (*Bkc) 100 Units/Ml SUB-Q QAM CESAR Multi-Ingred Cream/Lotion/Oil/Oint 1 applic 10/10/24 09:00 10/12/24 20:57 Mineral Oil/White Petrolatum Ointment EACH EYE 1 applic Q12HR CESAR Administration Mupirocin 1 applic 10/09/24 09:00 10/12/24 20:57 Mupirocin 2% Oint 22 Gm Tube EACH NARE 1 applic Q12HR CESAR Administration Pantoprazole Sodium 40 mg 10/09/24 13:45 10/12/24 08:18 Pantoprazole Sodium Iv 40 Mg Vial IV PUSH 40 mg QAM CESAR Administration Perflutren Lipid Microsphere 0 ml 10/11/24 09:10 Perflutren Lipid Microspheres 1.5 Ml Vial Diluted To 10 Ml Total Volume IV PUSH 10/14/24 09:10 ONCE PRN adequate visualization Protocol Fluticasone/Salmeterol 2 puff 10/09/24 08:00 10/09/24 09:26 Fluticasone/Salmeterol 115-21 Mcg Inhaler 1 Puff INHALATION Not Given Q12HRT CESAR Sevelamer Carbonate 1,600 mg 10/09/24 08:00 10/12/24 16:34 Sevelamer Carbonate 800 Mg Tablet PO 1,600 mg TIDWM CESAR Administration Sodium Chloride 10 ml 10/09/24 14:00 10/13/24 05:08 Central Line Flush IV PUSH 10 ml Q8HR CESAR Administration Sodium Chloride 20 ml 10/09/24 06:24 Central Line Flush IV PUSH PRN PRN after blood draws Vancomycin HCl 1 each 10/08/24 23:03 Vancomycin For Hemodialysis IVPB 10/14/24 23:59 PRN PRN Vancomycin Protocol Radiology Results: ITS Impressions Pelvis X-Ray 10/08/24 22:22 IMPRESSION: As above. Head CT 10/08/24 23:18 IMPRESSION: No acute intracranial findings. Chest CT 10/08/24 23:27 IMPRESSION: 1. Interstitial thickening in the lower lobes which may indicate pneumonitis. Edema is less likely. 2. Cardiomegaly. 3. Cholelithiasis 4. Splenic cysts unchanged. Chest X-Ray 10/13/24 06:32 Impression: Moderate to advanced pulmonary edema pattern with small bilateral pleural effusions. Correlate clinically for pneumonia. Support tubes, as above. Labs Labs: Laboratory Results - last 24 hr 10/12/24 10/12/24 10/12/24 08:16 11:59 16:00 WBC RBC Hgb Hct MCV MCH MCHC RDW Plt Count MPV Immature Gran % (Auto) Neut % (Auto) Lymph % (Auto) Howard % (Auto) Eos % (Auto) Baso % (Auto) Lymph # (Auto) Howard # (Auto) Eos # (Auto) Baso # (Auto) Abs Immat Gran (auto) Absolute Neuts (auto) Absolute Nucleated RBC Band Neutrophils % Nucleated RBC % Platelet Estimate Large Platelets % Immature Plt Fraction Poikilocytosis Ovalocytes [place] Cells Schistocytes Puncture Site ABG pH ABG pCO2 ABG pO2 ABG PO2/FiO2 Ratio ABG HCO3 ABG O2 Saturation ABG O2 Content ABG Base Excess A-a Gradient Oxyhemoglobin Carboxyhemoglobin Methemoglobin Reduced Hemoglobin Total Hemoglobin O2 Delivery Device O2 Liters/Min Minute Volume Vent Rate Vent Mode FiO2 Tidal Volume PEEP Peak Inspir Pressure Pressure Support Sodium Potassium Chloride Carbon Dioxide Anion Gap BUN Creatinine Estim Creat Clear Calc Estimated GFR Glucose POC Capillary Glucose 240 H 257 H Lactic Acid 2.3 H Calcium Phosphorus Magnesium Total Bilirubin AST ALT Alkaline Phosphatase Total Protein Albumin Random Vancomycin 10/12/24 10/13/24 10/13/24 20:05 00:17 03:59 WBC RBC Hgb Hct MCV MCH MCHC RDW Plt Count MPV Immature Gran % (Auto) Neut % (Auto) Lymph % (Auto) Howard % (Auto) Eos % (Auto) Baso % (Auto) Lymph # (Auto) Howard # (Auto) Eos # (Auto) Baso # (Auto) Abs Immat Gran (auto) Absolute Neuts (auto) Absolute Nucleated RBC Band Neutrophils % Nucleated RBC % Platelet Estimate Large Platelets % Immature Plt Fraction Poikilocytosis Ovalocytes [place] Cells Schistocytes Puncture Site ABG pH ABG pCO2 ABG pO2 ABG PO2/FiO2 Ratio ABG HCO3 ABG O2 Saturation ABG O2 Content ABG Base Excess A-a Gradient Oxyhemoglobin Carboxyhemoglobin Methemoglobin Reduced Hemoglobin Total Hemoglobin O2 Delivery Device O2 Liters/Min Minute Volume Vent Rate Vent Mode FiO2 Tidal Volume PEEP Peak Inspir Pressure Pressure Support Sodium Potassium Chloride Carbon Dioxide Anion Gap BUN Creatinine Estim Creat Clear Calc Estimated GFR Glucose POC Capillary Glucose 257 H 228 H 228 H Lactic Acid Calcium Phosphorus Magnesium Total Bilirubin AST ALT Alkaline Phosphatase Total Protein Albumin Random Vancomycin 10/13/24 10/13/24 10/13/24 04:59 05:11 08:37 WBC 10.0 RBC 4.31 L Hgb 13.2 L Hct 40.6 L MCV 94.2 MCH 30.6 MCHC 32.5 RDW 16.0 H Plt Count 77 L MPV 11.8 H Immature Gran % (Auto) 0.8 H Neut % (Auto) 90.3 H Lymph % (Auto) 3.2 L Howard % (Auto) 5.6 Eos % (Auto) 0.0 Baso % (Auto) 0.1 L Lymph # (Auto) 0.32 L Howard # (Auto) 0.6 Eos # (Auto) 0.0 Baso # (Auto) 0.0 Abs Immat Gran (auto) 0.08 H Absolute Neuts (auto) 9.0 H Absolute Nucleated RBC 0.000 Band Neutrophils % 0 Nucleated RBC % 0.0 Platelet Estimate Decreased Large Platelets Present % Immature Plt Fraction 5.8 Poikilocytosis 1+ Ovalocytes 1+ Blaine Cells 1+ Schistocytes None seen Puncture Site Artline ABG pH 7.422 ABG pCO2 35.4 ABG pO2 81.2 ABG PO2/FiO2 Ratio 2.71 ABG HCO3 22.5 ABG O2 Saturation 96.3 ABG O2 Content 18.8 ABG Base Excess -1.3 A-a Gradient 91.1 Oxyhemoglobin 94.0 Carboxyhemoglobin 1.3 Methemoglobin 0.3 Reduced Hemoglobin 4.4 Total Hemoglobin 14.2 O2 Delivery Device Ventilator O2 Liters/Min Not Reportable Minute Volume Not Reportable Vent Rate 14 Vent Mode Cmv FiO2 30 Tidal Volume 450 PEEP 5 Peak Inspir Pressure Not Reportable Pressure Support Not Reportable Sodium 133 L Potassium 4.4 Chloride 93 L Carbon Dioxide 23 Anion Gap 17 H BUN 62 H D Creatinine 5.92 H Estim Creat Clear Calc 10 Estimated GFR 9 L Glucose 260 H POC Capillary Glucose 204 H Lactic Acid Calcium 7.6 L Phosphorus 3.9 Magnesium 2.1 Total Bilirubin 1.7 H AST 23 ALT 12 Alkaline Phosphatase 84 Total Protein 7.0 Albumin 3.8 Random Vancomycin 17.8 Quality VTE Prophylaxis VTE prophylaxis: mechanical ordered
[2024-10-13] MEDS: INSULIN GLARGINE (*BKC) 100 UNITS/ML 35 UNITS SUB-Q (09:19)
[2024-10-13] MEDS: cefTRIAXone 2 GM/NS 100 ML 2 GM/100 ML BAG IVPB (09:19)
[2024-10-13] MEDS: MINERAL OIL/WHITE PETROLATUM OINTMENT 1 APPLIC EACH EYE ×2 (09:20→20:54)
[2024-10-13] MEDS: PANTOPRAZOLE SODIUM IV 40 MG VIAL IV PUSH (09:20)
[2024-10-13] MEDS: MUPIROCIN 2% OINT 22 GM TUBE 1 APPLIC EACH NARE ×2 (09:20→20:54)
[2024-10-13] MEDS: SEVELAMER CARBONATE 800 MG TABLET 1600 MG PO ×2 (09:49→17:42)
[2024-10-13] MEDS: allopurinoL 100 MG TABLET PO (09:49)
[2024-10-13] MEDS: ATORVASTATIN 10 MG TABLET PO (09:49)
--- NOTE | 2024-10-13 10:27 | PM.CNCAR ---
Assessment and Plan Assessment and plan (1) Septic shock: Code(s): A41.9 - Sepsis, unspecified organism; R65.21 - Severe sepsis with septic shock Status: Acute Plan 1. Septic shock with Streptococcus mitis bacteremia PLAN -As patient not able to consent, discussed procedure with his , Kathy. Discussed indication for ROBERT, procedure details, risks vs benefits, etc. Patient's agreeable. -Will plan to do ROBERT when patient has completed his dialysis session. Recommendations and plan discussed with ICU Physician. History of Present Illness History of Present Illness Consult date/time: 10/13/24 10:27 Requesting physician: Davion Piña MD Consult reason: Other (ROBERT) Reason For Visit: AMS, influenza, pna, sepsis Narrative: We are consulted for ROBERT. Patient intubated and sedated, therefore, cannot obtain any history from the patient. History obtained from the patient's chart and medical team. Khalif is an 84 year old male with ESRD on HD, CHF, pulmonary hypertension, atrial fibrillation, hypertension, hyperlipidemia who is admitted with septic shock. Blood cultures growing streptococcus mitis. TTE 10/11 shows: 1. Left ventricular chamber dimension is normal. 2. Left ventricular systolic function is normal, estimated at >70%. 3. There is mildly increased left ventricular wall thickness. 4. The left ventricular diastolic function is grade II diastolic dysfunction. 5. Right ventricular chamber dimension is severely enlarged. 6. Right ventricular systolic function is reduced. 7. Flattening of the septum in diastole and systole consistent with right ventricular volume and pressure overload. 8. Left atrial chamber dimension is severely enlarged. 9. Right atrial chamber dimension is severely enlarged. 10. There is mild mitral valve regurgitation. 11. There is moderate to severe tricuspid valve regurgitation. 12. Pulmonary hypertension, estimated pulmonary arterial systolic pressure is 66 mmHg. 13. There is mild pulmonic regurgitation. 14. Dilated inferior vena cava with <50% collapse upon inspiration consistent with elevated right atrial pressure, 15 mmHg. 15. Left pleural effusion present. 16. Study ordered for bacteremia. Cannot rule out vegetations on this study. Consider ROBERT if clinically indicated. Review of Systems Review of Systems: ROS unobtainable: Yes unobtainable due to endotracheal tube PMFSH Past Medical History Medical History Shingles Benign prostatic hyperplasia Vitamin D deficiency Secondary renal hyperparathyroidism Chronic anticoagulation Atrial fibrillation with slow ventricular response Pulmonary hypertension Congestive heart failure 07/2024: Hyperdynamic systolic function, estimated EF 70%, severely dilated right ventricle. Gout Sleep apnea intolerant of CPAP End-stage renal disease on hemodialysis Anemia of chronic disease Umbilical hernia Iron deficiency anemia B12 deficiency anemia Essential (primary) hypertension Mixed hyperlipidemia Type 2 diabetes mellitus with diabetic neuropathy Surgical History Surgical History Status post insertion of spinal cord stimulator History of cataract extraction with lens replacement History of bilateral knee arthroplasty Normal colonoscopy (~2007) Family History Family History Father Cerebrovascular accident Mother Hypertension Sibling Hypertension Other Kidney disease, chronic, end stage on dialysis Social History Social History Social History: Surrogate medical decision maker: Kathy Yanez, spouse. Code status: Full code. Smoking packs per day: 0.5 Smoking cigarettes per day: 10.0 Years smoked: 5 Smoking pack-years: 2.50 Smoking status: Former smoker Second hand tobacco smoke exposure: Yes Alcohol intake: never Substance use: never Substance use type: does not use Do You Feel Safe in your Home?: Yes Lack of Transportation: No Lack of Food: Never True Current Housing: I Have Housing Concerned About Future Housing: No Difficulty Paying Gas/Electric Bills: No Difficulty Paying for Meds: No Currently Unemployed: No Education: Bachelor's Degree Difficulty w/ Childcare or Family Care: No Living arrangements: with family Additional living arrangements comments: Lives with spouse of nearly 60 years. They have a son and daughter. Occupation/Education: retired Additional occupation/education comments: Retired from working with [employer]. Spiritual care concerns: No Meds Home Medications and Allergies Home Medications ?Medication ?Instructions ?Recorded ?Confirmed ?Type atorvastatin 10 mg tablet 10 mg PO DAILY #90 tabs 02/23/24 10/09/24 Rx apixaban 2.5 mg tablet (Eliquis) 2.5 mg PO Q12HR #180 tabs 03/12/24 10/09/24 Rx allopurinol 100 mg tablet 100 mg PO DAILY #90 tabs 03/31/24 10/09/24 Rx bumetanide 1 mg tablet 1 mg PO BID #60 tabs 06/16/24 10/09/24 Rx albuterol sulfate 90 mcg/actuation 2 puff inhalation Q6H PRN 07/12/24 10/09/24 History aerosol inhaler sob/wheezing acetaminophen 325 mg tablet 650 mg (2 x 325 mg) PO Q6H PRN 07/17/24 10/09/24 Rx Mild Pain (1-3) Or Fever #30 tabs fluticasone 250 mcg-salmeterol 50 1 inh inhalation Q12H 07/21/24 10/09/24 History mcg/dose blistr powdr for inhalation (Advair Diskus) tramadol 50 mg tablet 50 mg PO Q8H PRN pain #90 tabs 08/23/24 10/09/24 Rx midodrine 10 mg tablet 10 mg PO WITH DIALYSIS PRN 09/24/24 10/09/24 Rx hypotension with dialysis #12 tabs sevelamer carbonate 800 mg tablet 1,600 mg PO TIDWM 09/24/24 10/09/24 History (Renvela) benzonatate 100 mg capsule See Rx Instructions .Route 10/03/24 10/09/24 Rx .COMPLEX #60 caps Allergies Allergy/AdvReac Type Severity Reaction Status Date / Time No Known Allergies Allergy Verified 10/08/24 17:11 Vital Signs Vital Signs - 24 hr 10/12/24 11:06 10/12/24 11:14 10/12/24 11:14 Temperature Pulse Rate 70 61 Respiratory Rate Blood Pressure 85/47 L Pulse Oximetry 92 Oxygen Delivery Mechanical Ventilation Fraction of Inspired Oxygen 30 21 10/12/24 11:19 10/12/24 12:00 10/12/24 12:00 Temperature Pulse Rate 72 65 65 Respiratory Rate Blood Pressure 87/52 L 103/53 L 103/53 L Pulse Oximetry Oxygen Delivery Fraction of Inspired Oxygen 10/12/24 12:00 10/12/24 12:00 10/12/24 12:00 Temperature 36.5 C Pulse Rate 65 65 61 Respiratory Rate 14 14 10 L Blood Pressure 98/52 L Pulse Oximetry 96 Oxygen Delivery Fraction of Inspired Oxygen 10/12/24 12:00 10/12/24 12:00 10/12/24 13:05 Temperature 36.8 C Pulse Rate 70 69 Respiratory Rate 15 Blood Pressure 92/50 L Pulse Oximetry 94 Oxygen Delivery Fraction of Inspired Oxygen 30 10/12/24 13:05 10/12/24 13:10 10/12/24 13:20 Temperature Pulse Rate 76 68 76 Respiratory Rate Blood Pressure 87/43 L 89/51 L 94/50 L Pulse Oximetry Oxygen Delivery Fraction of Inspired Oxygen 10/12/24 13:20 10/12/24 13:30 10/12/24 13:45 Temperature Pulse Rate 72 70 Respiratory Rate Blood Pressure 82/52 L 95/52 L Pulse Oximetry Oxygen Delivery Fraction of Inspired Oxygen 30 10/12/24 14:00 10/12/24 14:00 10/12/24 14:00 Temperature 35.9 C L Pulse Rate 69 70 72 Respiratory Rate 14 14 Blood Pressure 99/54 L 100/54 L Pulse Oximetry 97 Oxygen Delivery Fraction of Inspired Oxygen 10/12/24 14:00 10/12/24 14:00 10/12/24 14:00 Temperature Pulse Rate 65 65 65 Respiratory Rate 14 Blood Pressure 102/55 L 102/53 L Pulse Oximetry Oxygen Delivery Fraction of Inspired Oxygen 10/12/24 14:00 10/12/24 14:15 10/12/24 14:30 Temperature Pulse Rate 71 72 65 Respiratory Rate Blood Pressure 101/54 L 130/54 L Pulse Oximetry Oxygen Delivery Fraction of Inspired Oxygen 10/12/24 14:31 10/12/24 14:31 10/12/24 14:45 Temperature Pulse Rate 62 62 69 Respiratory Rate 17 Blood Pressure 108/58 L Pulse Oximetry 97 Oxygen Delivery Mechanical Ventilation Fraction of Inspired Oxygen 30 10/12/24 15:00 10/12/24 15:15 10/12/24 15:30 Temperature Pulse Rate 63 65 65 Respiratory Rate Blood Pressure 113/57 L 118/60 126/63 Pulse Oximetry Oxygen Delivery Fraction of Inspired Oxygen 10/12/24 15:45 10/12/24 16:00 10/12/24 16:00 Temperature Pulse Rate 64 67 Respiratory Rate Blood Pressure 128/64 124/61 Pulse Oximetry Oxygen Delivery Fraction of Inspired Oxygen 30 10/12/24 16:00 10/12/24 16:00 10/12/24 16:00 Temperature Pulse Rate 70 60 60 Respiratory Rate 14 14 Blood Pressure 128/66 Pulse Oximetry Oxygen Delivery Fraction of Inspired Oxygen 10/12/24 16:00 10/12/24 16:00 10/12/24 16:15 Temperature 36.4 C L Pulse Rate 60 68 60 Respiratory Rate 14 Blood Pressure 122/66 126/63 127/62 Pulse Oximetry 97 Oxygen Delivery Fraction of Inspired Oxygen 10/12/24 16:20 10/12/24 16:20 10/12/24 16:25 Temperature Pulse Rate 66 66 70 Respiratory Rate Blood Pressure 128/62 145/75 H 141/72 H Pulse Oximetry Oxygen Delivery Fraction of Inspired Oxygen 10/12/24 16:30 10/12/24 16:33 10/12/24 16:40 Temperature 36.5 C Pulse Rate 64 64 60 Respiratory Rate 12 Blood Pressure 140/71 143/73 H 140/70 Pulse Oximetry 98 Oxygen Delivery Fraction of Inspired Oxygen 10/12/24 17:01 10/12/24 17:20 10/12/24 18:00 Temperature Pulse Rate 64 61 69 Respiratory Rate Blood Pressure 120/59 L Pulse Oximetry 96 Oxygen Delivery Mechanical Ventilation Fraction of Inspired Oxygen 30 10/12/24 18:00 10/12/24 18:00 10/12/24 18:00 Temperature Pulse Rate 70 70 70 Respiratory Rate 14 Blood Pressure 112/59 L 112/51 L Pulse Oximetry Oxygen Delivery Fraction of Inspired Oxygen 10/12/24 18:00 10/12/24 18:00 10/12/24 20:00 Temperature 36.6 C 36.6 C Pulse Rate 70 68 62 Respiratory Rate 14 13 26 H Blood Pressure 113/57 L 108/53 L Pulse Oximetry 96 96 Oxygen Delivery Fraction of Inspired Oxygen 10/12/24 20:00 10/12/24 20:00 10/12/24 20:00 Temperature Pulse Rate 67 70 70 Respiratory Rate 14 Blood Pressure 107/55 L 107/55 L Pulse Oximetry Oxygen Delivery Fraction of Inspired Oxygen 10/12/24 20:00 10/12/24 20:00 10/12/24 20:00 Temperature Pulse Rate 70 62 Respiratory Rate 14 Blood Pressure Pulse Oximetry Oxygen Delivery Fraction of Inspired Oxygen 30 10/12/24 20:02 10/12/24 20:02 10/12/24 20:07 Temperature Pulse Rate 61 61 65 Respiratory Rate 14 14 Blood Pressure Pulse Oximetry 98 Oxygen Delivery Mechanical Ventilation Fraction of Inspired Oxygen 30 10/12/24 20:50 10/12/24 20:56 10/12/24 20:56 Temperature Pulse Rate 68 68 68 Respiratory Rate 14 Blood Pressure 110/57 L 108/55 L Pulse Oximetry 98 Oxygen Delivery Mechanical Ventilation Fraction of Inspired Oxygen 30 10/12/24 22:00 10/12/24 22:00 10/12/24 22:00 Temperature Pulse Rate 65 65 65 Respiratory Rate 14 Blood Pressure 102/52 L Pulse Oximetry Oxygen Delivery Fraction of Inspired Oxygen 10/12/24 22:00 10/12/24 22:00 10/12/24 22:00 Temperature 36.8 C Pulse Rate 65 65 73 Respiratory Rate 14 26 H Blood Pressure 102/52 L 109/58 L Pulse Oximetry 98 Oxygen Delivery Fraction of Inspired Oxygen 10/12/24 23:00 10/12/24 23:45 10/13/24 00:00 Temperature Pulse Rate 70 73 Respiratory Rate 14 Blood Pressure Pulse Oximetry 97 98 Oxygen Delivery Mechanical Ventilation Mechanical Ventilation Fraction of Inspired Oxygen 30 30 30 10/13/24 00:00 10/13/24 00:00 10/13/24 00:00 Temperature Pulse Rate 62 65 65 Respiratory Rate 14 Blood Pressure 101/51 L 101/51 L Pulse Oximetry Oxygen Delivery Fraction of Inspired Oxygen 10/13/24 00:00 10/13/24 00:00 10/13/24 00:00 Temperature 36.9 C Pulse Rate 65 64 65 Respiratory Rate 14 26 H Blood Pressure 104/53 L Pulse Oximetry 98 Oxygen Delivery Fraction of Inspired Oxygen 10/13/24 02:00 10/13/24 02:00 10/13/24 02:00 Temperature Pulse Rate 58 L 58 L 58 L Respiratory Rate 14 Blood Pressure 107/54 L Pulse Oximetry Oxygen Delivery Fraction of Inspired Oxygen 10/13/24 02:00 10/13/24 02:00 10/13/24 02:00 Temperature 36.9 C Pulse Rate 58 L 58 L 65 Respiratory Rate 14 26 H Blood Pressure 107/51 L 109/57 L Pulse Oximetry 97 Oxygen Delivery Fraction of Inspired Oxygen 10/13/24 02:09 10/13/24 02:09 10/13/24 02:15 Temperature Pulse Rate 65 65 64 Respiratory Rate 15 14 Blood Pressure Pulse Oximetry 97 Oxygen Delivery Mechanical Ventilation Fraction of Inspired Oxygen 30 10/13/24 02:38 10/13/24 02:38 10/13/24 03:46 Temperature Pulse Rate 71 74 74 Respiratory Rate 14 14 Blood Pressure 109/55 L 109/55 L Pulse Oximetry 98 98 Oxygen Delivery Mechanical Ventilation Fraction of Inspired Oxygen 30 10/13/24 03:48 10/13/24 04:00 10/13/24 04:00 Temperature Pulse Rate 58 L 60 Respiratory Rate 14 Blood Pressure 111/54 L Pulse Oximetry Oxygen Delivery Fraction of Inspired Oxygen 30 10/13/24 04:00 10/13/24 04:00 10/13/24 04:00 Temperature 36.8 C Pulse Rate 60 60 64 Respiratory Rate 28 H Blood Pressure 112/56 L 112/56 L Pulse Oximetry 98 Oxygen Delivery Fraction of Inspired Oxygen 10/13/24 04:12 10/13/24 04:15 10/13/24 04:18 Temperature Pulse Rate 60 68 68 Respiratory Rate 14 14 Blood Pressure 112/58 L 112/59 L Pulse Oximetry 97 Oxygen Delivery Fraction of Inspired Oxygen 10/13/24 04:50 10/13/24 04:50 10/13/24 04:55 Temperature Pulse Rate 67 62 61 Respiratory Rate 15 Blood Pressure 125/62 125/62 Pulse Oximetry 99 98 Oxygen Delivery Mechanical Ventilation Fraction of Inspired Oxygen 30 10/13/24 05:00 10/13/24 05:00 10/13/24 05:10 Temperature Pulse Rate 62 60 60 Respiratory Rate 15 Blood Pressure 124/74 124/74 121/61 Pulse Oximetry 99 Oxygen Delivery Fraction of Inspired Oxygen 10/13/24 05:10 10/13/24 05:15 10/13/24 05:15 Temperature Pulse Rate 64 66 69 Respiratory Rate 15 15 Blood Pressure 124/62 125/62 128/62 Pulse Oximetry 99 97 Oxygen Delivery Fraction of Inspired Oxygen 10/13/24 05:22 10/13/24 05:23 10/13/24 05:30 Temperature Pulse Rate 61 66 76 Respiratory Rate 17 Blood Pressure 123/60 123/60 126/66 Pulse Oximetry 98 Oxygen Delivery Fraction of Inspired Oxygen 10/13/24 05:30 10/13/24 05:35 10/13/24 05:35 Temperature Pulse Rate 73 71 66 Respiratory Rate 14 14 Blood Pressure 127/66 121/61 121/61 Pulse Oximetry 98 98 Oxygen Delivery Fraction of Inspired Oxygen 10/13/24 05:39 10/13/24 05:40 10/13/24 05:42 Temperature Pulse Rate 72 65 75 Respiratory Rate 15 Blood Pressure 118/60 118/61 112/58 L Pulse Oximetry 98 Oxygen Delivery Fraction of Inspired Oxygen 10/13/24 05:47 10/13/24 05:56 10/13/24 06:00 Temperature Pulse Rate 72 73 64 Respiratory Rate 14 Blood Pressure 108/57 L 104/54 L Pulse Oximetry 97 Oxygen Delivery Fraction of Inspired Oxygen 10/13/24 06:00 10/13/24 06:00 10/13/24 06:00 Temperature Pulse Rate 64 64 64 Respiratory Rate 14 14 Blood Pressure 102/52 L 102/52 L Pulse Oximetry 97 Oxygen Delivery Fraction of Inspired Oxygen 10/13/24 06:00 10/13/24 06:05 10/13/24 07:20 Temperature Pulse Rate 64 64 72 Respiratory Rate 14 Blood Pressure 102/54 L 87/48 L Pulse Oximetry Oxygen Delivery Fraction of Inspired Oxygen 10/13/24 07:25 10/13/24 07:25 10/13/24 07:28 Temperature 36.4 C Pulse Rate 75 74 Respiratory Rate 14 Blood Pressure 94/52 L 86/45 L Pulse Oximetry 99 Oxygen Delivery Fraction of Inspired Oxygen 30 10/13/24 07:28 10/13/24 07:35 10/13/24 07:43 Temperature Pulse Rate 74 75 75 Respiratory Rate Blood Pressure 87/48 L 86/46 L 99/57 L Pulse Oximetry Oxygen Delivery Fraction of Inspired Oxygen 10/13/24 07:48 10/13/24 07:49 10/13/24 08:00 Temperature Pulse Rate 74 74 79 Respiratory Rate 16 Blood Pressure 111/72 Pulse Oximetry 98 Oxygen Delivery Mechanical Ventilation Fraction of Inspired Oxygen 30 10/13/24 08:00 10/13/24 08:00 10/13/24 08:00 Temperature Pulse Rate 82 82 82 Respiratory Rate 18 Blood Pressure 107/68 107/68 107/68 Pulse Oximetry 99 Oxygen Delivery Fraction of Inspired Oxygen 10/13/24 08:04 10/13/24 10:00 Temperature Pulse Rate 65 79 Respiratory Rate 15 16 Blood Pressure 100/54 L Pulse Oximetry 97 Oxygen Delivery Fraction of Inspired Oxygen Exam Const: Other: Critically ill male on multiple drips. Intubated. Resp: Other: On mechanical ventilation. Cardio: Rate: regular rate Rhythm: abnormal rhythm irregularly irregular Neuro: Other: Sedated Psych: Other: Sedated Results Labs and Meds 10/13/24 04:59 10/13/24 04:59 Lab results: Cardiac Enzymes 10/13/24 Range/Units 04:59 AST 23 (17-59) U/L CBC 10/13/24 Range/Units 04:59 WBC 10.0 (4.5-10.0) K/mm3 RBC 4.31 L (4.6-6.20) M/mm3 Hgb 13.2 L (14.0-18.0) g/dL Hct 40.6 L (42.0-52.0) % Plt Count 77 L (150-375) k/mm3 Lymph # (Auto) 0.32 L (0.9-3.2) K/mm3 [place] # (Auto) 0.6 (0.1-0.6) K/mm3 Eos # (Auto) 0.0 (0-0.3) K/mm3 Baso # (Auto) 0.0 (0.0-0.1) K/mm3 Comprehensive Metabolic Panel 10/13/24 Range/Units 04:59 Sodium 133 L (137-145) mmol/L Potassium 4.4 (3.4-5.0) mmol/L Chloride 93 L (98-107) mmol/L Carbon Dioxide 23 (22-30) mmol/L BUN 62 H D (9-20) mg/dL Creatinine 5.92 H (0.7-1.3) mg/dL Glucose 260 H (65-110) mg/dL Calcium 7.6 L (8.4-10.2) mg/dL AST 23 (17-59) U/L ALT 12 (6-50) U/L Alkaline Phosphatase 84 (38-126) U/L Total Protein 7.0 (6.3-8.2) g/dL Albumin 3.8 (3.5-5.1) g/dL Intake and Output 10/12/24 10/13/24 10/13/24 23:59 07:59 15:59 Intake Total 743.4 631.9 8.4 Output Total 3800 0 Balance -3056.6 631.9 8.4 Intake: IV 136.4 134.9 8.4 Fentanyl 2,500Mcg/[id number](*Crx 0 0 2,500 mcg In 250 ml @ 0 mls/hr IV CONT .Q0M [facility] Rx#:[id number] Midazolam 100Mg/Ns 100Ml(*Crx) 0 0 100 mg In 100 ml @ 0 mls/hr IV CONT .Q0M [facility] Rx#:[id number] Norepinephrine 8 mg/D5w 250 ml 36.0 7.8 8 mg In 250 ml @ 9 MCG/MIN 16. 875 mls/hr IV CONT .[id number] [facility] Rx#:[id number] Norepinephrine Bitartrate 16 mg 117.2 80.6 In Dextrose 5% in Water 234 ml @ 13 MCG/MIN 12.188 mls/hr IV CONT .[id number] [facility] Rx#:[id number] Vasopressin Inj 100 units In 19.2 18.3 0.6 Dextrose 5% 95 ml @ 0.04 UNITS/ MIN 2.4 mls/hr IV CONT .[id number] [facility] Rx#:[id number] Tube Feeding 427 420 Tube Flush 150 77 Other 30 Output: Urine 0 Catheter Urine 0 Urethral Catheter 0 Net UF Removed 3800 Patient Weight 10/13/24 23:59 Weight 98.8 kg
--- NOTE | 2024-10-13 10:38 | PCFNICU ---
ICU Rounding Note: Pt current nutrition is Nepro at 40 ml/hr. Last recorded weight is 98.8 kg, down from 103.6 kg on admit. Bowel Motility: +BM reported 10/12 Labs Reviewed:Glu 260, BUN 62, Cr 5.92, Na 133 Meds Noted:Rocephin, Lantus, Vasopressin, Norepinephrine. Skin: WNL Additional Notes: Patient remains mechanical vent. Tube feedings are being tolerated of Nepro at 40 ml/hr. Flush 30 ml q 4 hours. No sedation. Plans for dialysis today. Would recommend adding Prosource once daily to providing an additional 80 kcal and 20 gm protein. Following daily in ICU rounds. Monitoring vitals, labs, meds, weights, TF tolerance, output Following daily in rounds. Reassess Tuesdays and Fridays..
--- NOTE | 2024-10-13 11:10 | P.PNNP_ITS ---
Progress Note: A&P Assessment and Plan (1) End-stage renal disease (ESRD): Code(s): N18.6 - End stage renal disease Status: Chronic Assessment and Plan: * HD today * continue Fri/Fri/Friday dialysis schedule next week while hospitalized * follow electrolytes, volume status, and clearance (2) Septic shock: Code(s): A41.9 - Sepsis, unspecified organism; R65.21 - Severe sepsis with septic shock Status: Acute Assessment and Plan: * as noted on presentation - AMS + acute on chronic hypotension + lactic acidosis * complicated by chronic hypotension at baseline * presumed to be secondary to bacteremia, pneumonia and influenza * culture data noted: * blood cultures (on 10/08) wtih Streptococcus mitis * blood cultures (on 10/10) with no growth to date * s/p IVFs and IV albumin for volume expansion * requiring vasopressor therapy to maintain MAP/blood pressure * wean as tolerated * Echo ordered * stress dose steroids * follow hemodynamics (3) Acute respiratory failure: Code(s): J96.00 - Acute respiratory failure, unspecified whether with hypoxia or hypercapnia Status: Acute Assessment and Plan: * multifactorial: * pneumonia * altered mental status * need for airway protection * fluid * intubated on 10/08 in ER * on bronchodilators * fluid removal with dialysis as tolerated * dry ultrafiltration on 10/12 (4) Bacteremia: Code(s): R78.81 - Bacteremia Status: Acute Assessment and Plan: * 10/08 blood cultures with Streptococcus mitis * 10/10 repeat set of blood culture with growth to date * on antibiotics * see #2 (5) Influenza A: Code(s): J10.1 - Influenza due to other identified influenza virus with other respiratory manifestations Status: Acute Assessment and Plan: * as noted by testing in ER * on Tamiflu (renally dosed) * respiratory isolation (6) Pneumonia: Code(s): J18.9 - Pneumonia, unspecified organism Status: Acute Assessment and Plan: * suggested by recent imaging (CXR + CT scan) * on antibiotics (7) Altered mental status: Code(s): R41.82 - Altered mental status, unspecified Status: Acute Assessment and Plan: * noted in ER prior to intubatnio * presumably due to acute illness (infection/sepsis/shock...etc) * negative head CT * reassess once extubated (8) Anemia: Qualifiers: Anemia type: unspecified type Qualified Code(s): D64.9 - Anemia, unspecified Code(s): D64.9 - Anemia, unspecified Status: Chronic Assessment and Plan: * due to ESRD * hold Retacrit since Hgb > 10 * follow trend of H/H (9) Diabetes: Qualifiers: Chronic kidney disease stage: on chronic dialysis Diabetes mellitus complication detail: with chronic kidney disease Diabetes mellitus complication status: with kidney complications Diabetes mellitus assisted insulin use: [facility] assisted use Diabetes mellitus type: type 2 Qualified Code(s): E11.22 - Type 2 diabetes mellitus with diabetic chronic kidney disease; N18.6 - End stage renal disease; Z99.2 - Dependence on renal dialysis Code(s): E11.9 - Type 2 diabetes mellitus without complications Status: Chronic Assessment and Plan: * follow accu-cheks * glycemic control per hospitalist/[employer] operator Will continue to follow. L Subjective Date/time seen: 10/13/24 11:10 Interval history: Follow-up for end stage renal disease on hemodialysis. Tolerated dry ultrafiltration treatment yesterday with 3.8 liters fluid removal; tolerating hemodialysis treatment at the time of my visit (seen on HD at 11:00AM); remains intubated/sedated and on mechanical ventilation; still requiring vasopressor therapy to maintain MAP/blood pressure; no other issues/events overnight or earlier this morning. Exam 2 Narrative: General: elderly male intubated/sedated and on mechanical ventilation Heart: IRRR,normal S1 and S2; no rub Lungs: coarse breath sounds Abdomen: soft, nontender, nondistended, positive bowel sounds Extremities: no cyanosis or clubbing; chonic edema Skin: no rash Objective Data Vital Signs Vital Signs: Vital Signs Temp Pulse Resp BP Pulse Ox O2 Del Method FiO2 10/13/24 11:00 82 102/60 10/13/24 10:43 70 101/57 L 10/13/24 10:00 79 16 100/54 L 97 10/13/24 08:04 65 15 10/13/24 08:00 82 107/68 10/13/24 08:00 82 107/68 10/13/24 08:00 82 18 107/68 99 10/13/24 08:00 79 111/72 10/13/24 07:49 74 98 Mechanical Ventilation 30 10/13/24 07:48 74 16 10/13/24 07:43 75 99/57 L 10/13/24 07:35 75 86/46 L 10/13/24 07:28 74 87/48 L 10/13/24 07:28 74 86/45 L 10/13/24 07:25 30 10/13/24 07:25 97.6 F 75 14 94/52 L 99 10/13/24 07:20 72 87/48 L 10/13/24 06:05 64 102/54 L 10/13/24 06:00 64 14 10/13/24 06:00 64 14 10/13/24 06:00 64 102/52 L 10/13/24 06:00 64 14 102/52 L 97 10/13/24 06:00 64 10/13/24 05:56 73 14 104/54 L 97 10/13/24 05:47 72 108/57 L 10/13/24 05:42 75 112/58 L 10/13/24 05:40 65 15 118/61 98 10/13/24 05:39 72 118/60 10/13/24 05:35 66 121/61 10/13/24 05:35 71 14 121/61 98 10/13/24 05:30 73 14 127/66 98 10/13/24 05:30 76 126/66 10/13/24 05:23 66 123/60 10/13/24 05:22 61 17 123/60 98 10/13/24 05:15 69 128/62 10/13/24 05:15 66 15 125/62 97 10/13/24 05:10 64 15 124/62 99 10/13/24 05:10 60 121/61 10/13/24 05:00 60 15 124/74 99 10/13/24 05:00 62 124/74 10/13/24 04:55 61 98 Mechanical Ventilation 30 10/13/24 04:50 62 15 125/62 99 10/13/24 04:50 67 125/62 10/13/24 04:18 68 112/59 L 10/13/24 04:15 68 14 112/58 L 97 10/13/24 04:12 60 14 10/13/24 04:00 98.3 F 64 28 H 112/56 L 98 10/13/24 04:00 60 10/13/24 04:00 60 112/56 L 10/13/24 04:00 60 111/54 L 10/13/24 04:00 58 L 14 10/13/24 03:48 30 10/13/24 03:46 74 14 98 Mechanical Ventilation 10/13/24 02:38 74 14 109/55 L 98 10/13/24 02:38 71 109/55 L 10/13/24 02:15 64 14 10/13/24 02:09 65 15 10/13/24 02:09 65 97 Mechanical Ventilation 30 10/13/24 02:00 98.4 F 65 26 H 109/57 L 97 10/13/24 02:00 58 L 14 10/13/24 02:00 58 L 107/51 L 10/13/24 02:00 58 L 107/54 L 10/13/24 02:00 58 L 14 10/13/24 02:00 58 L 10/13/24 00:00 98.4 F 65 26 H 104/53 L 98 10/13/24 00:00 64 10/13/24 00:00 65 14 10/13/24 00:00 65 101/51 L 10/13/24 00:00 65 101/51 L 10/13/24 00:00 62 14 10/13/24 00:00 30 10/12/24 23:45 73 14 98 Mechanical Ventilation 10/12/24 23:00 70 97 Mechanical Ventilation 10/12/24 22:00 98.2 F 73 26 H 109/58 L 98 10/12/24 22:00 65 14 10/12/24 22:00 65 102/52 L 10/12/24 22:00 65 102/52 L 10/12/24 22:00 65 14 10/12/24 22:00 65 10/12/24 20:56 68 108/55 L 10/12/24 20:56 68 110/57 L 10/12/24 20:50 68 14 98 Mechanical Ventilation 10/12/24 20:07 65 14 10/12/24 20:02 61 14 10/12/24 20:02 61 98 Mechanical Ventilation 10/12/24 20:00 62 10/12/24 20:00 30 10/12/24 20:00 70 14 10/12/24 20:00 70 107/55 L 10/12/24 20:00 70 107/55 L 10/12/24 20:00 67 14 10/12/24 20:00 98 F 62 26 H 108/53 L 96 10/12/24 18:00 97.8 F 68 13 113/57 L 96 10/12/24 18:00 70 14 10/12/24 18:00 70 112/51 L 10/12/24 18:00 70 112/59 L 10/12/24 18:00 70 14 10/12/24 18:00 69 10/12/24 17:20 61 96 Mechanical Ventilation 30 10/12/24 17:01 64 120/59 L 10/12/24 16:40 60 140/70 10/12/24 16:33 64 143/73 H 10/12/24 16:30 97.7 F 64 12 140/71 98 10/12/24 16:25 70 141/72 H 10/12/24 16:20 66 145/75 H 10/12/24 16:20 66 128/62 10/12/24 16:15 60 127/62 10/12/24 16:00 97.5 F L 68 14 126/63 97 10/12/24 16:00 60 122/66 10/12/24 16:00 60 128/66 10/12/24 16:00 60 14 10/12/24 16:00 70 14 10/12/24 16:00 30 10/12/24 16:00 67 124/61 10/12/24 15:45 64 128/64 10/12/24 15:30 65 126/63 10/12/24 15:15 65 118/60 10/12/24 15:00 63 113/57 L 10/12/24 14:45 69 108/58 L 10/12/24 14:31 62 17 10/12/24 14:31 62 97 Mechanical Ventilation 10/12/24 14:30 65 130/54 L 10/12/24 14:15 72 101/54 L 10/12/24 14:00 71 10/12/24 14:00 65 14 10/12/24 14:00 65 102/53 L 10/12/24 14:00 65 102/55 L 10/12/24 14:00 72 14 10/12/24 14:00 96.6 F L 70 14 100/54 L 97 10/12/24 14:00 69 99/54 L 10/12/24 13:45 70 95/52 L 10/12/24 13:30 72 82/52 L 10/12/24 13:20 30 10/12/24 13:20 76 94/50 L 10/12/24 13:10 68 89/51 L 10/12/24 13:05 76 87/43 L 10/12/24 13:05 98.2 F 69 15 92/50 L 94 10/12/24 12:00 30 10/12/24 12:00 70 10/12/24 12:00 97.7 F 61 10 L 98/52 L 96 10/12/24 12:00 65 14 10/12/24 12:00 65 14 10/12/24 12:00 65 103/53 L 10/12/24 12:00 65 103/53 L Intake/Output Intake/Output: Intake & Output 10/11/24 10/11/24 10/12/24 10/13/24 00:59 23:59 23:59 23:59 Intake Total 2062.7 1580.7 1743.4 640.3 Output Total 100 3000 3800 0 Balance 1962.7 -1419.3 -2056.6 640.3 Meds/Results Medications: Active Medications Generic Name Dose Route Start Last Admin Trade Name Freq PRN Reason Stop Dose Admin Acetaminophen 650 mg 10/08/24 20:49 Acetaminophen 650 Mg Suppository RECTAL Q6H PRN Mild Pain (1-3) or Fever Albuterol/Ipratropium 3 ml 10/09/24 14:00 10/13/24 07:48 Ipratropium 0.5 Mg/Albuterol Sulfate 2.5 Mg Ampul.Neb 3 Ml INHALATION 3 ml Q6HRT CESAR Administration Allopurinol 100 mg 10/09/24 08:00 10/13/24 09:49 Allopurinol 100 Mg Tablet PO 100 mg DAILY@0800 CESAR Administration Apixaban 2.5 mg 10/09/24 09:00 10/11/24 20:01 Apixaban 2.5 Mg Tablet PO 2.5 mg Q12HR CESAR Administration Atorvastatin Calcium 10 mg 10/09/24 09:00 10/13/24 09:49 Atorvastatin 10 Mg Tablet PO 10 mg DAILY CESAR Administration Budesonide 0.5 mg 10/09/24 20:00 10/13/24 07:48 Budesonide Respule Neb 0.5 Mg/2 Ml Amp INHALATION 0.5 mg Q12HRT CESAR Administration Dextrose 12.5 gm 10/08/24 22:06 Dextrose 50% 25 Gm/50 Ml Syringe IV PUSH PRN PRN Hypoglycemia Protocol Glucagon 1 mg 10/08/24 22:06 Glucagon For Inj 1 Mg Vial IM PRN PRN Hypoglycemia Protocol Glucose 15 gm 10/08/24 22:06 Glucose Oral Gel 15 Gm Of Glucse In 37.5 Gm Tube PO PRN PRN Hypoglycemia Protocol Hydrocortisone Sodium Succinate 100 mg 10/09/24 14:30 10/13/24 05:08 Hydrocortisone Sodium Succinate 100 Mg/2 Ml Vial IV PUSH 100 mg Q8HR CESAR Administration Dextrose 1,000 mls @ 100 mls/hr 10/08/24 22:06 Dextrose 5% 1,000 Ml IVPB PRN PRN Hypoglycemia Protocol Vasopressin 100 units/ 100 mls @ 1.2 mls/hr 10/08/24 22:45 10/13/24 08:00 Dextrose IV CONT 0.2 units/min .Q72H CESAR 12 mls/hr Titration Protocol 0.02 UNITS/MIN Fentanyl Citrate 2,500 mcg in 250 mls @ 0 mls/hr 10/10/24 00:10 10/13/24 06:00 Fentanyl 2,500 Mcg/Ns 250 Ml IV CONT 0 mcg/hr .Q0M CESAR 0 mls/hr Titration Protocol Midazolam HCl 100 mg in 100 mls @ 0 mls/hr 10/10/24 00:10 10/13/24 06:00 Versed 100 Mg/Ns 100 Ml IV CONT 0 mg/hr .Q0M CESAR 0 mls/hr Titration Protocol Ceftriaxone Sodium 2 gm in 100 mls @ 200 mls/hr 10/12/24 11:15 10/13/24 09:19 Rocephin 2 Gm/Ns 100 Ml IVPB 200 mls/hr DAILY CESAR Administration Norepinephrine Bitartrate 8 mg in 250 mls @ 18.75 mls/hr 10/13/24 05:05 10/13/24 08:00 Levophed 8 Mg/D5w 250 Ml IV CONT 10 mcg/min .[id number] CESAR 18.75 mls/hr Titration Protocol 10 MCG/MIN Vancomycin HCl 750 mg in 250 mls @ 250 mls/hr 10/13/24 17:00 Vancomycin 750 Mg/Ns 250 Ml IVPB 10/13/24 17:59 ONCE ONE Albumin Human 100 mls @ 60 mls/hr 10/13/24 11:00 Albutein IVPB 10/13/24 12:39 ONCE ONE Insulin Aspart 4 - 8 units 10/11/24 12:00 10/13/24 09:20 Insulin Aspart (*Bkc) 100 Units/Ml SUB-Q 4 units Q4H CESAR Administration Protocol Insulin Glargine 35 units 10/13/24 09:00 10/13/24 09:19 Insulin Glargine (*Bkc) 100 Units/Ml SUB-Q 35 units QAM CESAR Administration Multi-Ingred Cream/Lotion/Oil/Oint 1 applic 10/10/24 09:00 10/13/24 09:20 Mineral Oil/White Petrolatum Ointment EACH EYE 1 applic Q12HR CESAR Administration Mupirocin 1 applic 10/09/24 09:00 10/13/24 09:20 Mupirocin 2% Oint 22 Gm Tube EACH NARE 1 applic Q12HR CESAR Administration Pantoprazole Sodium 40 mg 10/09/24 13:45 10/13/24 09:20 Pantoprazole Sodium Iv 40 Mg Vial IV PUSH 40 mg QAM CESAR Administration Perflutren Lipid Microsphere 0 ml 10/11/24 09:10 Perflutren Lipid Microspheres 1.5 Ml Vial Diluted To 10 Ml Total Volume IV PUSH 10/14/24 09:10 ONCE PRN adequate visualization Protocol Fluticasone/Salmeterol 2 puff 10/09/24 08:00 10/09/24 09:26 Fluticasone/Salmeterol 115-21 Mcg Inhaler 1 Puff INHALATION Not Given Q12HRT CESAR Sevelamer Carbonate 1,600 mg 10/09/24 08:00 10/13/24 09:49 Sevelamer Carbonate 800 Mg Tablet PO 1,600 mg TIDWM CESAR Administration Sodium Chloride 10 ml 10/09/24 14:00 10/13/24 05:08 Central Line Flush IV PUSH 10 ml Q8HR CESAR Administration Sodium Chloride 20 ml 10/09/24 06:24 Central Line Flush IV PUSH PRN PRN after blood draws Vancomycin HCl 1 each 10/08/24 23:03 Vancomycin For Hemodialysis IVPB 10/14/24 23:59 PRN PRN Vancomycin Protocol Radiology Results: ITS Impressions Pelvis X-Ray 10/08/24 22:22 IMPRESSION: As above. Head CT 10/08/24 23:18 IMPRESSION: No acute intracranial findings. Chest CT 10/08/24 23:27 IMPRESSION: 1. Interstitial thickening in the lower lobes which may indicate pneumonitis. Edema is less likely. 2. Cardiomegaly. 3. Cholelithiasis 4. Splenic cysts unchanged. Chest X-Ray 10/13/24 06:32 Impression: Moderate to advanced pulmonary edema pattern with small bilateral pleural effusions. Correlate clinically for pneumonia. Support tubes, as above. Abdomen X-Ray 10/13/24 09:43 IMPRESSION: 1. Nasogastric tube tip in the stomach. Labs Labs: Laboratory Tests 10/13/24 04:59 10/13/24 04:59 Calcium 7.6 L Phosphorus 3.9 Magnesium 2.1 Total Bilirubin 1.7 H AST 23 ALT 12 Alkaline Phosphatase 84 Total Protein 7.0 Albumin 3.8 Random Vancomycin 17.8 Microbiology 10/08/24 17:15 Blood Blood Culture - Final Streptococcus mitis group
[2024-10-13 11:51] LABS: Glucose Point of Care 171 mg/dl (65-105)
[2024-10-13] MEDS: ALBUMIN HUMAN 25% 25 GM/100 ML 100 ML IVPB (12:20)
--- NOTE | 2024-10-13 15:01 | P.SEDATION_ITS ---
Moderate Sedation Note-Pt Data Patient Data Diagnosis: Bacteremia Present Complaint: Bacteremia Procedure to be performed/Plan: Transesophageal echocardiogram Allergies Allergy/AdvReac Type Severity Reaction Status Date / Time No Known Allergies Allergy Verified 10/08/24 17:11 Home Medications ?Medication ?Instructions ?Recorded ?Confirmed ?Type atorvastatin 10 mg tablet 10 mg PO DAILY #90 tabs 02/23/24 10/09/24 Rx apixaban 2.5 mg tablet (Eliquis) 2.5 mg PO Q12HR #180 tabs 03/12/24 10/09/24 Rx allopurinol 100 mg tablet 100 mg PO DAILY #90 tabs 03/31/24 10/09/24 Rx bumetanide 1 mg tablet 1 mg PO BID #60 tabs 06/16/24 10/09/24 Rx albuterol sulfate 90 mcg/actuation 2 puff inhalation Q6H PRN 07/12/24 10/09/24 History aerosol inhaler sob/wheezing acetaminophen 325 mg tablet 650 mg (2 x 325 mg) PO Q6H PRN 07/17/24 10/09/24 Rx Mild Pain (1-3) Or Fever #30 tabs fluticasone 250 mcg-salmeterol 50 1 inh inhalation Q12H 07/21/24 10/09/24 History mcg/dose blistr powdr for inhalation (Advair Diskus) tramadol 50 mg tablet 50 mg PO Q8H PRN pain #90 tabs 08/23/24 10/09/24 Rx midodrine 10 mg tablet 10 mg PO WITH DIALYSIS PRN 09/24/24 10/09/24 Rx hypotension with dialysis #12 tabs sevelamer carbonate 800 mg tablet 1,600 mg PO TIDWM 09/24/24 10/09/24 History (Renvela) benzonatate 100 mg capsule See Rx Instructions .Route 10/03/24 10/09/24 Rx .COMPLEX #60 caps Current Medications: Active Medications Acetaminophen (Acetaminophen 650 Mg Suppository) 650 mg RECTAL Q6H PRN PRN Reason: Mild Pain (1-3) or Fever Albuterol/Ipratropium (Ipratropium 0.5 Mg/Albuterol Sulfate 2.5 Mg Ampul.Neb 3 Ml) 3 ml INHALATION Q6HRT [facility] Last Admin: 10/13/24 14:37 Dose: 3 ml Allopurinol (Allopurinol 100 Mg Tablet) 100 mg PO DAILY@0800 [facility] Last Admin: 10/13/24 09:49 Dose: 100 mg Apixaban (Apixaban 2.5 Mg Tablet) 2.5 mg PO Q12HR [facility] Last Admin: 10/11/24 20:01 Dose: 2.5 mg Atorvastatin Calcium (Atorvastatin 10 Mg Tablet) 10 mg PO DAILY [facility] Last Admin: 10/13/24 09:49 Dose: 10 mg Budesonide (Budesonide Respule Neb 0.5 Mg/2 Ml Amp) 0.5 mg INHALATION Q12HRT [facility] Last Admin: 10/13/24 07:48 Dose: 0.5 mg Dextrose (Dextrose 50% 25 Gm/50 Ml Syringe) 12.5 gm IV PUSH PRN PRN; Protocol PRN Reason: Hypoglycemia Glucagon (Glucagon For Inj 1 Mg Vial) 1 mg IM PRN PRN; Protocol PRN Reason: Hypoglycemia Glucose (Glucose Oral Gel 15 Gm Of Glucse In 37.5 Gm Tube) 15 gm PO PRN PRN; Protocol PRN Reason: Hypoglycemia Hydrocortisone Sodium Succinate (Hydrocortisone Sodium Succinate 100 Mg/2 Ml Vial) 100 mg IV PUSH Q8HR [facility] Last Admin: 10/13/24 05:08 Dose: 100 mg Dextrose (Dextrose 5% 1,000 Ml) 1,000 mls @ 100 mls/hr IVPB PRN PRN; Protocol PRN Reason: Hypoglycemia Vasopressin 100 units/ (Dextrose) 100 mls @ 1.2 mls/hr IV CONT .Q72H [facility]; Protocol Last Titration: 10/13/24 08:00 Dose: 0.2 units/min, 12 mls/hr Fentanyl Citrate (Fentanyl 2,500 Mcg/Ns 250 Ml) 2,500 mcg in 250 mls @ 0 mls/hr IV CONT .Q0M [facility]; Protocol Last Titration: 10/13/24 06:00 Dose: 0 mcg/hr, 0 mls/hr Midazolam HCl (Versed 100 Mg/Ns 100 Ml) 100 mg in 100 mls @ 0 mls/hr IV CONT .Q0M [facility]; Protocol Last Titration: 10/13/24 06:00 Dose: 0 mg/hr, 0 mls/hr Ceftriaxone Sodium (Rocephin 2 Gm/Ns 100 Ml) 2 gm in 100 mls @ 200 mls/hr IVPB DAILY [facility] Last Admin: 10/13/24 09:19 Dose: 200 mls/hr Norepinephrine Bitartrate (Levophed 8 Mg/D5w 250 Ml) 8 mg in 250 mls @ 18.75 mls/hr IV CONT .[id number] [facility]; Protocol Last Titration: 10/13/24 08:00 Dose: 10 mcg/min, 18.75 mls/hr Vancomycin HCl (Vancomycin 750 Mg/Ns 250 Ml) 750 mg in 250 mls @ 250 mls/hr IVPB ONCE ONE Stop: 10/13/24 17:59 Insulin Aspart (Insulin Aspart (*Bkc) 100 Units/Ml) 4 - 8 units SUB-Q Q4H [facility]; Protocol Last Admin: 10/13/24 11:57 Dose: Not Given Insulin Glargine (Insulin Glargine (*Bkc) 100 Units/Ml) 35 units SUB-Q QAM [facility] Last Admin: 10/13/24 09:19 Dose: 35 units Multi-Ingred Cream/Lotion/Oil/Oint (Mineral Oil/White Petrolatum Ointment) 1 applic EACH EYE Q12HR [facility] Last Admin: 10/13/24 09:20 Dose: 1 applic Mupirocin (Mupirocin 2% Oint 22 Gm Tube) 1 applic EACH NARE Q12HR [facility] Last Admin: 10/13/24 09:20 Dose: 1 applic Pantoprazole Sodium (Pantoprazole Sodium Iv 40 Mg Vial) 40 mg IV PUSH QAM [facility] Last Admin: 10/13/24 09:20 Dose: 40 mg Perflutren Lipid Microsphere (Perflutren Lipid Microspheres 1.5 Ml Vial Diluted To 10 Ml Total Volume) 0 ml IV PUSH ONCE PRN; Protocol PRN Reason: adequate visualization Stop: 10/14/24 09:10 Fluticasone/Salmeterol (Fluticasone/Salmeterol 115-21 Mcg Inhaler 1 Puff) 2 puff INHALATION Q12HRT [facility] Last Admin: 10/09/24 09:26 Dose: Not Given Sevelamer Carbonate (Sevelamer Carbonate 800 Mg Tablet) 1,600 mg PO TIDWM [facility] Last Admin: 10/13/24 12:03 Dose: Not Given Sodium Chloride (Central Line Flush) 10 ml IV PUSH Q8HR [facility] Last Admin: 10/13/24 05:08 Dose: 10 ml Sodium Chloride (Central Line Flush) 20 ml IV PUSH PRN PRN PRN Reason: after blood draws Vancomycin HCl (Vancomycin For Hemodialysis) 1 each IVPB PRN PRN PRN Reason: Vancomycin Protocol Stop: 10/14/24 23:59 Sedation/Anesthesia: No previous sedation/anesthesia problems (including family history). PMFSH Past Medical History Medical History Shingles Benign prostatic hyperplasia Vitamin D deficiency Secondary renal hyperparathyroidism Chronic anticoagulation Atrial fibrillation with slow ventricular response Pulmonary hypertension Congestive heart failure 07/2024: Hyperdynamic systolic function, estimated EF 70%, severely dilated right ventricle. Gout Sleep apnea intolerant of CPAP End-stage renal disease on hemodialysis Anemia of chronic disease Umbilical hernia Iron deficiency anemia B12 deficiency anemia Essential (primary) hypertension Mixed hyperlipidemia Type 2 diabetes mellitus with diabetic neuropathy Surgical History Surgical History Status post insertion of spinal cord stimulator History of cataract extraction with lens replacement History of bilateral knee arthroplasty Normal colonoscopy (~2007) Family History Family History Father Cerebrovascular accident Mother Hypertension Sibling Hypertension Other Kidney disease, chronic, end stage on dialysis Social History Social History Social History: Surrogate medical decision maker: Kathy Yanez, spouse. Code status: Full code. Smoking packs per day: 0.5 Smoking cigarettes per day: 10.0 Years smoked: 5 Smoking pack-years: 2.50 Smoking status: Former smoker Second hand tobacco smoke exposure: Yes Alcohol intake: never Substance use: never Substance use type: does not use Do You Feel Safe in your Home?: Yes Lack of Transportation: No Lack of Food: Never True Current Housing: I Have Housing Concerned About Future Housing: No Difficulty Paying Gas/Electric Bills: No Difficulty Paying for Meds: No Currently Unemployed: No Education: Bachelor's Degree Difficulty w/ Childcare or Family Care: No Living arrangements: with family Additional living arrangements comments: Lives with spouse of nearly 60 years. They have a son and daughter. Occupation/Education: retired Additional occupation/education comments: Retired from working with [employer]. Spiritual care concerns: No Mod Sed Physical Exam Physical Exam Pre Procedural Exam: Variation: Appearance (Intubated. ), Lungs (Intubated), Heart Rate (Rate controlled atrial fibrillation ) and Heart Rhythm (Rate controlled atrial fibrillation ) Hours since solid foods: 6 Hours since liquid intake: 6 Mallampati Classification: class III (Unable to assess Mallampati as patient already intubated. ) Internal Medicine - PN: Obj Da Vital Signs Vital Signs: Vital Signs - 24 hr 10/12/24 15:15 10/12/24 15:30 10/12/24 15:45 Temperature Pulse Rate 65 65 64 Respiratory Rate Blood Pressure 118/60 126/63 128/64 Pulse Oximetry Oxygen Delivery Fraction of Inspired Oxygen 10/12/24 16:00 10/12/24 16:00 10/12/24 16:00 Temperature Pulse Rate 67 70 Respiratory Rate 14 Blood Pressure 124/61 Pulse Oximetry Oxygen Delivery Fraction of Inspired Oxygen 30 10/12/24 16:00 10/12/24 16:00 10/12/24 16:00 Temperature Pulse Rate 60 60 60 Respiratory Rate 14 Blood Pressure 128/66 122/66 Pulse Oximetry Oxygen Delivery Fraction of Inspired Oxygen 10/12/24 16:00 10/12/24 16:15 10/12/24 16:20 Temperature 36.4 C L Pulse Rate 68 60 66 Respiratory Rate 14 Blood Pressure 126/63 127/62 128/62 Pulse Oximetry 97 Oxygen Delivery Fraction of Inspired Oxygen 10/12/24 16:20 10/12/24 16:25 10/12/24 16:30 Temperature 36.5 C Pulse Rate 66 70 64 Respiratory Rate 12 Blood Pressure 145/75 H 141/72 H 140/71 Pulse Oximetry 98 Oxygen Delivery Fraction of Inspired Oxygen 10/12/24 16:33 10/12/24 16:40 10/12/24 17:01 Temperature Pulse Rate 64 60 64 Respiratory Rate Blood Pressure 143/73 H 140/70 120/59 L Pulse Oximetry Oxygen Delivery Fraction of Inspired Oxygen 10/12/24 17:20 10/12/24 18:00 10/12/24 18:00 Temperature Pulse Rate 61 69 70 Respiratory Rate 14 Blood Pressure Pulse Oximetry 96 Oxygen Delivery Mechanical Ventilation Fraction of Inspired Oxygen 30 10/12/24 18:00 10/12/24 18:00 10/12/24 18:00 Temperature Pulse Rate 70 70 70 Respiratory Rate 14 Blood Pressure 112/59 L 112/51 L Pulse Oximetry Oxygen Delivery Fraction of Inspired Oxygen 10/12/24 18:00 10/12/24 20:00 10/12/24 20:00 Temperature 36.6 C 36.6 C Pulse Rate 68 62 67 Respiratory Rate 13 26 H 14 Blood Pressure 113/57 L 108/53 L Pulse Oximetry 96 96 Oxygen Delivery Fraction of Inspired Oxygen 10/12/24 20:00 10/12/24 20:00 10/12/24 20:00 Temperature Pulse Rate 70 70 70 Respiratory Rate 14 Blood Pressure 107/55 L 107/55 L Pulse Oximetry Oxygen Delivery Fraction of Inspired Oxygen 10/12/24 20:00 10/12/24 20:00 10/12/24 20:02 Temperature Pulse Rate 62 61 Respiratory Rate Blood Pressure Pulse Oximetry 98 Oxygen Delivery Mechanical Ventilation Fraction of Inspired Oxygen 30 30 10/12/24 20:02 10/12/24 20:07 10/12/24 20:50 Temperature Pulse Rate 61 65 68 Respiratory Rate 14 14 14 Blood Pressure Pulse Oximetry 98 Oxygen Delivery Mechanical Ventilation Fraction of Inspired Oxygen 30 10/12/24 20:56 10/12/24 20:56 10/12/24 22:00 Temperature Pulse Rate 68 68 65 Respiratory Rate Blood Pressure 110/57 L 108/55 L Pulse Oximetry Oxygen Delivery Fraction of Inspired Oxygen 10/12/24 22:00 10/12/24 22:00 10/12/24 22:00 Temperature Pulse Rate 65 65 65 Respiratory Rate 14 Blood Pressure 102/52 L 102/52 L Pulse Oximetry Oxygen Delivery Fraction of Inspired Oxygen 10/12/24 22:00 10/12/24 22:00 10/12/24 23:00 Temperature 36.8 C Pulse Rate 65 73 70 Respiratory Rate 14 26 H Blood Pressure 109/58 L Pulse Oximetry 98 97 Oxygen Delivery Mechanical Ventilation Fraction of Inspired Oxygen 30 10/12/24 23:45 10/13/24 00:00 10/13/24 00:00 Temperature Pulse Rate 73 62 Respiratory Rate 14 14 Blood Pressure Pulse Oximetry 98 Oxygen Delivery Mechanical Ventilation Fraction of Inspired Oxygen 30 30 10/13/24 00:00 10/13/24 00:00 10/13/24 00:00 Temperature Pulse Rate 65 65 65 Respiratory Rate 14 Blood Pressure 101/51 L 101/51 L Pulse Oximetry Oxygen Delivery Fraction of Inspired Oxygen 10/13/24 00:00 10/13/24 00:00 10/13/24 02:00 Temperature 36.9 C Pulse Rate 64 65 58 L Respiratory Rate 26 H Blood Pressure 104/53 L Pulse Oximetry 98 Oxygen Delivery Fraction of Inspired Oxygen 10/13/24 02:00 10/13/24 02:00 10/13/24 02:00 Temperature Pulse Rate 58 L 58 L 58 L Respiratory Rate 14 Blood Pressure 107/54 L 107/51 L Pulse Oximetry Oxygen Delivery Fraction of Inspired Oxygen 10/13/24 02:00 10/13/24 02:00 10/13/24 02:09 Temperature 36.9 C Pulse Rate 58 L 65 65 Respiratory Rate 14 26 H Blood Pressure 109/57 L Pulse Oximetry 97 97 Oxygen Delivery Mechanical Ventilation Fraction of Inspired Oxygen 30 10/13/24 02:09 10/13/24 02:15 10/13/24 02:38 Temperature Pulse Rate 65 64 71 Respiratory Rate 15 14 Blood Pressure 109/55 L Pulse Oximetry Oxygen Delivery Fraction of Inspired Oxygen 10/13/24 02:38 10/13/24 03:46 10/13/24 03:48 Temperature Pulse Rate 74 74 Respiratory Rate 14 14 Blood Pressure 109/55 L Pulse Oximetry 98 98 Oxygen Delivery Mechanical Ventilation Fraction of Inspired Oxygen 30 30 10/13/24 04:00 10/13/24 04:00 10/13/24 04:00 Temperature Pulse Rate 58 L 60 60 Respiratory Rate 14 Blood Pressure 111/54 L 112/56 L Pulse Oximetry Oxygen Delivery Fraction of Inspired Oxygen 10/13/24 04:00 10/13/24 04:00 10/13/24 04:12 Temperature 36.8 C Pulse Rate 60 64 60 Respiratory Rate 28 H 14 Blood Pressure 112/56 L Pulse Oximetry 98 Oxygen Delivery Fraction of Inspired Oxygen 10/13/24 04:15 10/13/24 04:18 10/13/24 04:50 Temperature Pulse Rate 68 68 67 Respiratory Rate 14 Blood Pressure 112/58 L 112/59 L 125/62 Pulse Oximetry 97 Oxygen Delivery Fraction of Inspired Oxygen 10/13/24 04:50 10/13/24 04:55 10/13/24 05:00 Temperature Pulse Rate 62 61 62 Respiratory Rate 15 Blood Pressure 125/62 124/74 Pulse Oximetry 99 98 Oxygen Delivery Mechanical Ventilation Fraction of Inspired Oxygen 30 10/13/24 05:00 10/13/24 05:10 10/13/24 05:10 Temperature Pulse Rate 60 60 64 Respiratory Rate 15 15 Blood Pressure 124/74 121/61 124/62 Pulse Oximetry 99 99 Oxygen Delivery Fraction of Inspired Oxygen 10/13/24 05:15 10/13/24 05:15 10/13/24 05:22 Temperature Pulse Rate 66 69 61 Respiratory Rate 15 17 Blood Pressure 125/62 128/62 123/60 Pulse Oximetry 97 98 Oxygen Delivery Fraction of Inspired Oxygen 10/13/24 05:23 10/13/24 05:30 10/13/24 05:30 Temperature Pulse Rate 66 76 73 Respiratory Rate 14 Blood Pressure 123/60 126/66 127/66 Pulse Oximetry 98 Oxygen Delivery Fraction of Inspired Oxygen 10/13/24 05:35 10/13/24 05:35 10/13/24 05:39 Temperature Pulse Rate 71 66 72 Respiratory Rate 14 Blood Pressure 121/61 121/61 118/60 Pulse Oximetry 98 Oxygen Delivery Fraction of Inspired Oxygen 10/13/24 05:40 10/13/24 05:42 10/13/24 05:47 Temperature Pulse Rate 65 75 72 Respiratory Rate 15 Blood Pressure 118/61 112/58 L 108/57 L Pulse Oximetry 98 Oxygen Delivery Fraction of Inspired Oxygen 10/13/24 05:56 10/13/24 06:00 10/13/24 06:00 Temperature Pulse Rate 73 64 64 Respiratory Rate 14 14 Blood Pressure 104/54 L 102/52 L Pulse Oximetry 97 97 Oxygen Delivery Fraction of Inspired Oxygen 10/13/24 06:00 10/13/24 06:00 10/13/24 06:00 Temperature Pulse Rate 64 64 64 Respiratory Rate 14 14 Blood Pressure 102/52 L Pulse Oximetry Oxygen Delivery Fraction of Inspired Oxygen 10/13/24 06:05 10/13/24 07:20 10/13/24 07:25 Temperature 36.4 C Pulse Rate 64 72 75 Respiratory Rate 14 Blood Pressure 102/54 L 87/48 L 94/52 L Pulse Oximetry 99 Oxygen Delivery Fraction of Inspired Oxygen 10/13/24 07:25 10/13/24 07:28 10/13/24 07:28 Temperature Pulse Rate 74 74 Respiratory Rate Blood Pressure 86/45 L 87/48 L Pulse Oximetry Oxygen Delivery Fraction of Inspired Oxygen 30 10/13/24 07:35 10/13/24 07:43 10/13/24 07:48 Temperature Pulse Rate 75 75 74 Respiratory Rate 16 Blood Pressure 86/46 L 99/57 L Pulse Oximetry Oxygen Delivery Fraction of Inspired Oxygen 10/13/24 07:49 10/13/24 08:00 10/13/24 08:00 Temperature Pulse Rate 74 79 82 Respiratory Rate 18 Blood Pressure 111/72 107/68 Pulse Oximetry 98 99 Oxygen Delivery Mechanical Ventilation Fraction of Inspired Oxygen 30 10/13/24 08:00 10/13/24 08:00 10/13/24 08:04 Temperature Pulse Rate 82 82 65 Respiratory Rate 15 Blood Pressure 107/68 107/68 Pulse Oximetry Oxygen Delivery Fraction of Inspired Oxygen 10/13/24 10:00 10/13/24 10:43 10/13/24 11:00 Temperature Pulse Rate 79 70 82 Respiratory Rate 16 Blood Pressure 100/54 L 101/57 L 102/60 Pulse Oximetry 97 Oxygen Delivery Fraction of Inspired Oxygen 10/13/24 11:15 10/13/24 11:30 10/13/24 11:45 Temperature Pulse Rate 77 80 82 Respiratory Rate Blood Pressure 102/58 L 103/59 L 106/61 Pulse Oximetry Oxygen Delivery Fraction of Inspired Oxygen 10/13/24 11:53 10/13/24 12:00 10/13/24 12:00 Temperature 36.7 C Pulse Rate 79 77 82 Respiratory Rate 18 Blood Pressure 103/59 L 105/60 Pulse Oximetry 98 99 Oxygen Delivery Mechanical Ventilation Fraction of Inspired Oxygen 30 10/13/24 12:15 10/13/24 12:30 10/13/24 12:45 Temperature Pulse Rate 76 81 83 Respiratory Rate Blood Pressure 102/57 L 104/59 L 106/61 Pulse Oximetry Oxygen Delivery Fraction of Inspired Oxygen 10/13/24 13:00 10/13/24 13:15 10/13/24 13:15 Temperature Pulse Rate 83 79 79 Respiratory Rate Blood Pressure 106/59 L 104/59 L 104/59 L Pulse Oximetry Oxygen Delivery Fraction of Inspired Oxygen 10/13/24 13:30 10/13/24 13:44 10/13/24 14:00 Temperature Pulse Rate 82 85 77 Respiratory Rate 16 Blood Pressure 108/64 104/61 117/65 Pulse Oximetry 96 Oxygen Delivery Fraction of Inspired Oxygen 10/13/24 14:31 10/13/24 14:38 10/13/24 14:43 Temperature Pulse Rate 80 74 78 Respiratory Rate 13 18 Blood Pressure 114/65 Pulse Oximetry 98 97 Oxygen Delivery Mechanical Ventilation Mechanical Ventilation Fraction of Inspired Oxygen 30 10/13/24 14:48 10/13/24 14:52 10/13/24 14:57 Temperature 36.4 C Pulse Rate 72 82 68 Respiratory Rate 14 14 14 Blood Pressure 108/57 L 108/65 106/56 L Pulse Oximetry 96 96 96 Oxygen Delivery Mechanical Ventilation Mechanical Ventilation Fraction of Inspired Oxygen Intake/Output Intake/Output: Intake & Output 10/11/24 10/11/24 10/12/24 10/13/24 00:59 23:59 23:59 23:59 Intake Total 2062.7 1580.7 1743.4 640.3 Output Total 100 3000 3800 3000 Balance 1962.7 -1419.3 -2056.6 -2359.7 Meds/Results Medications: Active Medications Generic Name Dose Route Start Last Admin Trade Name Freq PRN Reason Stop Dose Admin Acetaminophen 650 mg 10/08/24 20:49 Acetaminophen 650 Mg Suppository RECTAL Q6H PRN Mild Pain (1-3) or Fever Albuterol/Ipratropium 3 ml 10/09/24 14:00 10/13/24 14:37 Ipratropium 0.5 Mg/Albuterol Sulfate 2.5 Mg Ampul.Neb 3 Ml INHALATION 3 ml Q6HRT [facility] Administration Allopurinol 100 mg 10/09/24 08:00 10/13/24 09:49 Allopurinol 100 Mg Tablet PO 100 mg DAILY@0800 [facility] Administration Apixaban 2.5 mg 10/09/24 09:00 10/11/24 20:01 Apixaban 2.5 Mg Tablet PO 2.5 mg Q12HR [facility] Administration Atorvastatin Calcium 10 mg 10/09/24 09:00 10/13/24 09:49 Atorvastatin 10 Mg Tablet PO 10 mg DAILY [facility] Administration Budesonide 0.5 mg 10/09/24 20:00 10/13/24 07:48 Budesonide Respule Neb 0.5 Mg/2 Ml Amp INHALATION 0.5 mg Q12HRT [facility] Administration Dextrose 12.5 gm 10/08/24 22:06 Dextrose 50% 25 Gm/50 Ml Syringe IV PUSH PRN PRN Hypoglycemia Protocol Glucagon 1 mg 10/08/24 22:06 Glucagon For Inj 1 Mg Vial IM PRN PRN Hypoglycemia Protocol Glucose 15 gm 10/08/24 22:06 Glucose Oral Gel 15 Gm Of Glucse In 37.5 Gm Tube PO PRN PRN Hypoglycemia Protocol Hydrocortisone Sodium Succinate 100 mg 10/09/24 14:30 10/13/24 05:08 Hydrocortisone Sodium Succinate 100 Mg/2 Ml Vial IV PUSH 100 mg Q8HR [facility] Administration Dextrose 1,000 mls @ 100 mls/hr 10/08/24 22:06 Dextrose 5% 1,000 Ml IVPB PRN PRN Hypoglycemia Protocol Vasopressin 100 units/ 100 mls @ 1.2 mls/hr 10/08/24 22:45 10/13/24 08:00 Dextrose IV CONT 0.2 units/min .Q72H [facility] 12 mls/hr Titration Protocol 0.02 UNITS/MIN Fentanyl Citrate 2,500 mcg in 250 mls @ 0 mls/hr 10/10/24 00:10 10/13/24 06:00 Fentanyl 2,500 Mcg/Ns 250 Ml IV CONT 0 mcg/hr .Q0M [facility] 0 mls/hr Titration Protocol Midazolam HCl 100 mg in 100 mls @ 0 mls/hr 10/10/24 00:10 10/13/24 06:00 Versed 100 Mg/Ns 100 Ml IV CONT 0 mg/hr .Q0M [facility] 0 mls/hr Titration Protocol Ceftriaxone Sodium 2 gm in 100 mls @ 200 mls/hr 10/12/24 11:15 10/13/24 09:19 Rocephin 2 Gm/Ns 100 Ml IVPB 200 mls/hr DAILY [facility] Administration Norepinephrine Bitartrate 8 mg in 250 mls @ 18.75 mls/hr 10/13/24 05:05 10/13/24 08:00 Levophed 8 Mg/D5w 250 Ml IV CONT 10 mcg/min .[id number] [facility] 18.75 mls/hr Titration Protocol 10 MCG/MIN Vancomycin HCl 750 mg in 250 mls @ 250 mls/hr 10/13/24 17:00 Vancomycin 750 Mg/Ns 250 Ml IVPB 10/13/24 17:59 ONCE ONE Insulin Aspart 4 - 8 units 10/11/24 12:00 10/13/24 11:57 Insulin Aspart (*Bkc) 100 Units/Ml SUB-Q Not Given Q4H [facility] Protocol Insulin Glargine 35 units 10/13/24 09:00 10/13/24 09:19 Insulin Glargine (*Bkc) 100 Units/Ml SUB-Q 35 units QAM [facility] Administration Multi-Ingred Cream/Lotion/Oil/Oint 1 applic 10/10/24 09:00 10/13/24 09:20 Mineral Oil/White Petrolatum Ointment EACH EYE 1 applic Q12HR [facility] Administration Mupirocin 1 applic 10/09/24 09:00 10/13/24 09:20 Mupirocin 2% Oint 22 Gm Tube EACH NARE 1 applic Q12HR [facility] Administration Pantoprazole Sodium 40 mg 10/09/24 13:45 10/13/24 09:20 Pantoprazole Sodium Iv 40 Mg Vial IV PUSH 40 mg QAM [facility] Administration Perflutren Lipid Microsphere 0 ml 10/11/24 09:10 Perflutren Lipid Microspheres 1.5 Ml Vial Diluted To 10 Ml Total Volume IV PUSH 10/14/24 09:10 ONCE PRN adequate visualization Protocol Fluticasone/Salmeterol 2 puff 10/09/24 08:00 10/09/24 09:26 Fluticasone/Salmeterol 115-21 Mcg Inhaler 1 Puff INHALATION Not Given Q12HRT [facility] Sevelamer Carbonate 1,600 mg 10/09/24 08:00 10/13/24 12:03 Sevelamer Carbonate 800 Mg Tablet PO Not Given TIDWM [facility] Sodium Chloride 10 ml 10/09/24 14:00 10/13/24 05:08 Central Line Flush IV PUSH 10 ml Q8HR [facility] Administration Sodium Chloride 20 ml 10/09/24 06:24 Central Line Flush IV PUSH PRN PRN after blood draws Vancomycin HCl 1 each 10/08/24 23:03 Vancomycin For Hemodialysis IVPB 10/14/24 23:59 PRN PRN Vancomycin Protocol Radiology Results: ITS Impressions Pelvis X-Ray 10/08/24 22:22 IMPRESSION: As above. Head CT 10/08/24 23:18 IMPRESSION: No acute intracranial findings. Chest CT 10/08/24 23:27 IMPRESSION: 1. Interstitial thickening in the lower lobes which may indicate pneumonitis. Edema is less likely. 2. Cardiomegaly. 3. Cholelithiasis 4. Splenic cysts unchanged. Chest X-Ray 10/13/24 06:32 Impression: Moderate to advanced pulmonary edema pattern with small bilateral pleural effusions. Correlate clinically for pneumonia. Support tubes, as above. Abdomen X-Ray 10/13/24 09:43 IMPRESSION: 1. Nasogastric tube tip in the stomach. Labs 10/13/24 04:59 10/13/24 04:59 Labs: Laboratory Results - last 24 hr 10/12/24 10/12/24 10/13/24 16:00 20:05 00:17 WBC RBC Hgb Hct MCV MCH MCHC RDW Plt Count MPV Immature Gran % (Auto) Neut % (Auto) Lymph % (Auto) [place] % (Auto) Eos % (Auto) Baso % (Auto) Lymph # (Auto) [place] # (Auto) Eos # (Auto) Baso # (Auto) Abs Immat Gran (auto) Absolute Neuts (auto) Absolute Nucleated RBC Band Neutrophils % Nucleated RBC % Platelet Estimate Large Platelets % Immature Plt Fraction Poikilocytosis Ovalocytes [place] Cells Schistocytes Puncture Site ABG pH ABG pCO2 ABG pO2 ABG PO2/FiO2 Ratio ABG HCO3 ABG O2 Saturation ABG O2 Content ABG Base Excess A-a Gradient Oxyhemoglobin Carboxyhemoglobin Methemoglobin Reduced Hemoglobin Total Hemoglobin O2 Delivery Device O2 Liters/Min Minute Volume Vent Rate Vent Mode FiO2 Tidal Volume PEEP Peak Inspir Pressure Pressure Support Sodium Potassium Chloride Carbon Dioxide Anion Gap BUN Creatinine Estim Creat Clear Calc Estimated GFR Glucose POC Capillary Glucose 257 H 257 H 228 H Calcium Phosphorus Magnesium Total Bilirubin AST ALT Alkaline Phosphatase Total Protein Albumin Random Vancomycin 10/13/24 10/13/24 10/13/24 03:59 04:59 05:11 WBC 10.0 RBC 4.31 L Hgb 13.2 L Hct 40.6 L MCV 94.2 MCH 30.6 MCHC 32.5 RDW 16.0 H Plt Count 77 L MPV 11.8 H Immature Gran % (Auto) 0.8 H Neut % (Auto) 90.3 H Lymph % (Auto) 3.2 L [place] % (Auto) 5.6 Eos % (Auto) 0.0 Baso % (Auto) 0.1 L Lymph # (Auto) 0.32 L [place] # (Auto) 0.6 Eos # (Auto) 0.0 Baso # (Auto) 0.0 Abs Immat Gran (auto) 0.08 H Absolute Neuts (auto) 9.0 H Absolute Nucleated RBC 0.000 Band Neutrophils % 0 Nucleated RBC % 0.0 Platelet Estimate Decreased Large Platelets Present % Immature Plt Fraction 5.8 Poikilocytosis 1+ Ovalocytes 1+ [place] Cells 1+ Schistocytes None seen Puncture Site Artline ABG pH 7.422 ABG pCO2 35.4 ABG pO2 81.2 ABG PO2/FiO2 Ratio 2.71 ABG HCO3 22.5 ABG O2 Saturation 96.3 ABG O2 Content 18.8 ABG Base Excess -1.3 A-a Gradient 91.1 Oxyhemoglobin 94.0 Carboxyhemoglobin 1.3 Methemoglobin 0.3 Reduced Hemoglobin 4.4 Total Hemoglobin 14.2 O2 Delivery Device Ventilator O2 Liters/Min Not Reportable Minute Volume Not Reportable Vent Rate 14 Vent Mode Cmv FiO2 30 Tidal Volume 450 PEEP 5 Peak Inspir Pressure Not Reportable Pressure Support Not Reportable Sodium 133 L Potassium 4.4 Chloride 93 L Carbon Dioxide 23 Anion Gap 17 H BUN 62 H D Creatinine 5.92 H Estim Creat Clear Calc 10 Estimated GFR 9 L Glucose 260 H POC Capillary Glucose 228 H Calcium 7.6 L Phosphorus 3.9 Magnesium 2.1 Total Bilirubin 1.7 H AST 23 ALT 12 Alkaline Phosphatase 84 Total Protein 7.0 Albumin 3.8 Random Vancomycin 17.8 10/13/24 10/13/24 08:37 11:48 WBC RBC Hgb Hct MCV MCH MCHC RDW Plt Count MPV Immature Gran % (Auto) Neut % (Auto) Lymph % (Auto) [place] % (Auto) Eos % (Auto) Baso % (Auto) Lymph # (Auto) [place] # (Auto) Eos # (Auto) Baso # (Auto) Abs Immat Gran (auto) Absolute Neuts (auto) Absolute Nucleated RBC Band Neutrophils % Nucleated RBC % Platelet Estimate Large Platelets % Immature Plt Fraction Poikilocytosis Ovalocytes [place] Cells Schistocytes Puncture Site ABG pH ABG pCO2 ABG pO2 ABG PO2/FiO2 Ratio ABG HCO3 ABG O2 Saturation ABG O2 Content ABG Base Excess A-a Gradient Oxyhemoglobin Carboxyhemoglobin Methemoglobin Reduced Hemoglobin Total Hemoglobin O2 Delivery Device O2 Liters/Min Minute Volume Vent Rate Vent Mode FiO2 Tidal Volume PEEP Peak Inspir Pressure Pressure Support Sodium Potassium Chloride Carbon Dioxide Anion Gap BUN Creatinine Estim Creat Clear Calc Estimated GFR Glucose POC Capillary Glucose 204 H 171 H Calcium Phosphorus Magnesium Total Bilirubin AST ALT Alkaline Phosphatase Total Protein Albumin Random Vancomycin ASA Classification/Sedation ASA Classification/Sedation ASA Class: III Emergent: No Risks: Risks, benefits and alternatives explained and patient/family accepted plan for sedation. Patient re-evaluated immediately prior to sedation.
--- NOTE | 2024-10-13 15:01 | WPDHPUPDATE1 ---
History and Physical Update Update Date/Time: 10/13/24 15:01 History and Physical has been reviewed, including an updated exam of the patient. There are NO changes in the patient's condition. Risks, benefits, and alternatives have been discussed and questions answered. Patient agrees to proceed with procedure.
--- NOTE | 2024-10-13 15:03 | P.PCNTEE_ITS ---
ROBERT TransEsophageal Echocardiogram Date of procedure: 10/13/24 Procedure Type: Date Of Procedure: 10/13/2024 Brief History Of Present Illness: Patient is referred for ROBERT for bacteremia, evaluation for infective endocarditis Indication: Bacteremia Procedure In Detail: Consent obtained from the patient's . See pre-sedation note for further details. Patient was monitored throughout the study with telemetry, oxygen saturation, end-tidal CO2 monitoring, blood pressure, heart rate, and respirations.?After time out, moderate sedation was administered.?After confirmation of adequate moderate sedation, the transesophageal echocardiogram probe was advanced into the posterior hypopharynx and into the esophagus easily and without complication.?Multiple, multiplanar echocardiographic images were obtained in multiple standard re-projections.?Ccolor-flow Doppler were utilized in conjunction with this study.?At the conclusion of the study, the transesophageal echocardiogram probe was removed easily and without complication. The patient tolerated the procedure well without difficulty.? Moderate Sedation / Anesthesia Administration: Total of IV Versed 4mg and Fentanyl 100mg was administered by CARMEN Sanz . FINDINGS: No vegetations noted on the mitral valve. There is trace mitral valve regurgitation. No vegetations noted on tricuspid valve. There is moderate tricuspid valve regurgitation. Aortic valve is trileaflet. No vegetations on the aortic valve. Pulmonary valve appears grossly normal without vegetations. Interatrial septum is anatomically normal without evidence of shunt with color- flow Doppler. Smoke noted in the left atrial appendage. Definity was administered to rule out thrombus, no thrombus visualized with Definity. Mild atherosclerotic disease in the aorta. CONCLUSION: No evidence of infective endocarditis. Complications: None
[2024-10-13] MEDS: PERFLUTREN LIPID MICROSPHERES 1.5 ML VIAL DILUTED TO 10 ML TOTAL VOLUME IV PUSH (15:12)
[2024-10-13 16:11] LABS: Glucose Point of Care 130 mg/dl (65-105)
[2024-10-13] MEDS: VANCOMYCIN 750 MG/NS 250 ML 750 MG/250 ML BAG 250 MG IVPB (17:42)
--- NOTE | 2024-10-13 17:49 | P.PNIM_ITS ---
Progress Note: A&P Assessment and Plan (1) Sepsis: Code(s): A41.9 - Sepsis, unspecified organism Status: Acute (2) Influenza: Code(s): J11.1 - Influenza due to unidentified influenza virus with other respiratory manifestations Status: Acute (3) Pneumonia: Code(s): J18.9 - Pneumonia, unspecified organism Status: Acute (4) Altered mental status: Code(s): R41.82 - Altered mental status, unspecified Status: Acute (5) End-stage renal disease on hemodialysis: Code(s): N18.6 - End stage renal disease; Z99.2 - Dependence on renal dialysis Status: Acute (6) Type 2 diabetes mellitus with diabetic neuropathy: Qualifiers: 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 Labs, imaging, EKG, and all reports were personally reviewed. He meets sepsis criteria with hypotension, low-grade fever, bandemia, lactic acidosis, and altered mental status in the setting of infection. He remained hypotensive following a 1.5 L normal saline bolus (more fluids were not given due to his end-stage renal disease) and he has been started on vasopressors with a target MAP of at least 65. He tested positive for influenza A and chest x-ray shows findings of possible pneumonia for which he has been started on oseltamivir and azithromycin, ceftriaxone, and vancomycin. MRSA nasal screen pending. Sputum culture ordered. There were no reports of obvious focal deficits on exam in the ED and his altered mental status may very well be related to sepsis, influenza, and hypotension. Brain CT was without acute findings. Initiate sliding scale insulin, Accu-Cheks, and hypoglycemic protocol. He will be due for dialysis on Friday. His medications will be reviewed and resumed as appropriate. Findings and treatment plan were discussed with the patient's . Questions were solicited and answered to satisfaction. The patient's medical management will be taken over by the hospitalist team in a.m. patient presented with hypotension and confusion, patient was intubated and on ventilator, patient is receiving IVF and on pressor, discussed with interrelated special education teacher patient blood pressure is improving and his off pressors, patient is found to have Influenza A treated with Tamiflu patient family is not present in the room, today patient ROBERT there is no evidence endocarditis, patient is clinically remain, patient is seen by interrelated special education teacher and further recommendation to follow. Subjective Date/time seen: 10/13/24 17:49 Interval history: Altered mental status. H&P-Narrative: This is an 84-year-old male with end-stage renal disease on hemodialysis, congestive heart failure, pulmonary hypertension, type 2 diabetes mellitus, atrial fibrillation on anticoagulation, hypertension, chronic anemia, and other comorbidities who presented to the emergency department via EMS for evaluation of altered mental status after dialysis. He was intubated in the emergency department and the following history is obtained from the patient's as well as review of his electronic medical records. He went to dialysis at 05:00 and completed a session. His that time he has reportedly been increasingly confused, mumbling to himself and not making any sense. In the ED his only complaint was that of not feeling well but he did not elaborate. reports that he had a bit of a cough yesterday which she believes was nonproductive. There were no reports of fever, cold and flu symptoms, vomiting, or diarrhea. In the ED: Vital signs on arrival include a temperature of 99.8?, blood pressure 72/37, pulse 87, respiratory 22, SpO2 95%. Labs were significant for WBC count of 7.9 with 10 bands noted on manual differential, sodium 136, chloride 92, carbon dioxide 34, BUN 26, creatinine 3.68, lactic acid 2.9, calcium 7.9, total bilirubin 2.1. He tested positive for influenza A. Chest x-ray showed bilateral social pneumonitis versus pulmonary edema. Blood pressure continue to drift down words and he was given a 1500 mL bolus of normal saline without much improvement. The decision was made to put in the central line and start the p atient on vasopressors however the patient had difficulties lying still for central line placement and he was sedated and eventually intubated and he is being admitted to the ICU in this setting with hypotension, influenza, pneumonia, and altered mental status. patient presented with hypotension and confusion, patient was intubated and on ventilator, patient is receiving IVF and on pressor, discussed with interrelated special education teacher patient blood pressure is improving and his off pressors, patient is found to have Influenza A treated with Tamiflu patient family is not present in the room, today patient ROBERT there is no evidence endocarditis, patient is clinically remain, patient is seen by interrelated special education teacher and further recommendation to follow. Review of Systems Review of Systems: ROS unobtainable: Yes unobtainable due to endotracheal tube Exam Narrative: Patient is comfortable, NAD HEENT: ET tube in place LUNGS:CTA HEART: RR S1S2 ABD: BS+, Soft and nontender Lower extremities: no edema SKIN: nonjaundiced Neuro: On vent and sedated Objective Data Vital Signs Vital Signs: Vital Signs - 24 hr 10/12/24 18:00 10/12/24 18:00 10/12/24 18:00 Temperature Pulse Rate 69 70 70 Respiratory Rate 14 Blood Pressure 112/59 L Pulse Oximetry Oxygen Delivery Fraction of Inspired Oxygen 10/12/24 18:00 10/12/24 18:00 10/12/24 18:00 Temperature 36.6 C Pulse Rate 70 70 68 Respiratory Rate 14 13 Blood Pressure 112/51 L 113/57 L Pulse Oximetry 96 Oxygen Delivery Fraction of Inspired Oxygen 10/12/24 20:00 10/12/24 20:00 10/12/24 20:00 Temperature 36.6 C Pulse Rate 62 67 70 Respiratory Rate 26 H 14 Blood Pressure 108/53 L 107/55 L Pulse Oximetry 96 Oxygen Delivery Fraction of Inspired Oxygen 10/12/24 20:00 10/12/24 20:00 10/12/24 20:00 Temperature Pulse Rate 70 70 Respiratory Rate 14 Blood Pressure 107/55 L Pulse Oximetry Oxygen Delivery Fraction of Inspired Oxygen 30 10/12/24 20:00 10/12/24 20:02 10/12/24 20:02 Temperature Pulse Rate 62 61 61 Respiratory Rate 14 Blood Pressure Pulse Oximetry 98 Oxygen Delivery Mechanical Ventilation Fraction of Inspired Oxygen 30 10/12/24 20:07 10/12/24 20:50 10/12/24 20:56 Temperature Pulse Rate 65 68 68 Respiratory Rate 14 14 Blood Pressure 110/57 L Pulse Oximetry 98 Oxygen Delivery Mechanical Ventilation Fraction of Inspired Oxygen 30 10/12/24 20:56 10/12/24 22:00 10/12/24 22:00 Temperature Pulse Rate 68 65 65 Respiratory Rate 14 Blood Pressure 108/55 L Pulse Oximetry Oxygen Delivery Fraction of Inspired Oxygen 10/12/24 22:00 10/12/24 22:00 10/12/24 22:00 Temperature Pulse Rate 65 65 65 Respiratory Rate 14 Blood Pressure 102/52 L 102/52 L Pulse Oximetry Oxygen Delivery Fraction of Inspired Oxygen 10/12/24 22:00 10/12/24 23:00 10/12/24 23:45 Temperature 36.8 C Pulse Rate 73 70 73 Respiratory Rate 26 H 14 Blood Pressure 109/58 L Pulse Oximetry 98 97 98 Oxygen Delivery Mechanical Ventilation Mechanical Ventilation Fraction of Inspired Oxygen 30 30 10/13/24 00:00 10/13/24 00:00 10/13/24 00:00 Temperature Pulse Rate 62 65 Respiratory Rate 14 Blood Pressure 101/51 L Pulse Oximetry Oxygen Delivery Fraction of Inspired Oxygen 30 10/13/24 00:00 10/13/24 00:00 10/13/24 00:00 Temperature Pulse Rate 65 65 64 Respiratory Rate 14 Blood Pressure 101/51 L Pulse Oximetry Oxygen Delivery Fraction of Inspired Oxygen 10/13/24 00:00 10/13/24 02:00 10/13/24 02:00 Temperature 36.9 C Pulse Rate 65 58 L 58 L Respiratory Rate 26 H 14 Blood Pressure 104/53 L Pulse Oximetry 98 Oxygen Delivery Fraction of Inspired Oxygen 10/13/24 02:00 10/13/24 02:00 10/13/24 02:00 Temperature Pulse Rate 58 L 58 L 58 L Respiratory Rate 14 Blood Pressure 107/54 L 107/51 L Pulse Oximetry Oxygen Delivery Fraction of Inspired Oxygen 10/13/24 02:00 10/13/24 02:09 10/13/24 02:09 Temperature 36.9 C Pulse Rate 65 65 65 Respiratory Rate 26 H 15 Blood Pressure 109/57 L Pulse Oximetry 97 97 Oxygen Delivery Mechanical Ventilation Fraction of Inspired Oxygen 30 10/13/24 02:15 10/13/24 02:38 10/13/24 02:38 Temperature Pulse Rate 64 71 74 Respiratory Rate 14 14 Blood Pressure 109/55 L 109/55 L Pulse Oximetry 98 Oxygen Delivery Fraction of Inspired Oxygen 10/13/24 03:46 10/13/24 03:48 10/13/24 04:00 Temperature Pulse Rate 74 58 L Respiratory Rate 14 14 Blood Pressure Pulse Oximetry 98 Oxygen Delivery Mechanical Ventilation Fraction of Inspired Oxygen 30 30 10/13/24 04:00 10/13/24 04:00 10/13/24 04:00 Temperature Pulse Rate 60 60 60 Respiratory Rate Blood Pressure 111/54 L 112/56 L Pulse Oximetry Oxygen Delivery Fraction of Inspired Oxygen 10/13/24 04:00 10/13/24 04:12 10/13/24 04:15 Temperature 36.8 C Pulse Rate 64 60 68 Respiratory Rate 28 H 14 14 Blood Pressure 112/56 L 112/58 L Pulse Oximetry 98 97 Oxygen Delivery Fraction of Inspired Oxygen 10/13/24 04:18 10/13/24 04:50 10/13/24 04:50 Temperature Pulse Rate 68 67 62 Respiratory Rate 15 Blood Pressure 112/59 L 125/62 125/62 Pulse Oximetry 99 Oxygen Delivery Fraction of Inspired Oxygen 10/13/24 04:55 10/13/24 05:00 10/13/24 05:00 Temperature Pulse Rate 61 62 60 Respiratory Rate 15 Blood Pressure 124/74 124/74 Pulse Oximetry 98 99 Oxygen Delivery Mechanical Ventilation Fraction of Inspired Oxygen 30 10/13/24 05:10 10/13/24 05:10 10/13/24 05:15 Temperature Pulse Rate 60 64 66 Respiratory Rate 15 15 Blood Pressure 121/61 124/62 125/62 Pulse Oximetry 99 97 Oxygen Delivery Fraction of Inspired Oxygen 10/13/24 05:15 10/13/24 05:22 10/13/24 05:23 Temperature Pulse Rate 69 61 66 Respiratory Rate 17 Blood Pressure 128/62 123/60 123/60 Pulse Oximetry 98 Oxygen Delivery Fraction of Inspired Oxygen 10/13/24 05:30 10/13/24 05:30 10/13/24 05:35 Temperature Pulse Rate 76 73 71 Respiratory Rate 14 14 Blood Pressure 126/66 127/66 121/61 Pulse Oximetry 98 98 Oxygen Delivery Fraction of Inspired Oxygen 10/13/24 05:35 10/13/24 05:39 10/13/24 05:40 Temperature Pulse Rate 66 72 65 Respiratory Rate 15 Blood Pressure 121/61 118/60 118/61 Pulse Oximetry 98 Oxygen Delivery Fraction of Inspired Oxygen 10/13/24 05:42 10/13/24 05:47 10/13/24 05:56 Temperature Pulse Rate 75 72 73 Respiratory Rate 14 Blood Pressure 112/58 L 108/57 L 104/54 L Pulse Oximetry 97 Oxygen Delivery Fraction of Inspired Oxygen 10/13/24 06:00 10/13/24 06:00 10/13/24 06:00 Temperature Pulse Rate 64 64 64 Respiratory Rate 14 Blood Pressure 102/52 L 102/52 L Pulse Oximetry 97 Oxygen Delivery Fraction of Inspired Oxygen 10/13/24 06:00 10/13/24 06:00 10/13/24 06:05 Temperature Pulse Rate 64 64 64 Respiratory Rate 14 14 Blood Pressure 102/54 L Pulse Oximetry Oxygen Delivery Fraction of Inspired Oxygen 10/13/24 07:20 10/13/24 07:25 10/13/24 07:25 Temperature 36.4 C Pulse Rate 72 75 Respiratory Rate 14 Blood Pressure 87/48 L 94/52 L Pulse Oximetry 99 Oxygen Delivery Fraction of Inspired Oxygen 30 10/13/24 07:28 10/13/24 07:28 10/13/24 07:35 Temperature Pulse Rate 74 74 75 Respiratory Rate Blood Pressure 86/45 L 87/48 L 86/46 L Pulse Oximetry Oxygen Delivery Fraction of Inspired Oxygen 10/13/24 07:43 10/13/24 07:48 10/13/24 07:49 Temperature Pulse Rate 75 74 74 Respiratory Rate 16 Blood Pressure 99/57 L Pulse Oximetry 98 Oxygen Delivery Mechanical Ventilation Fraction of Inspired Oxygen 30 10/13/24 08:00 10/13/24 08:00 10/13/24 08:00 Temperature Pulse Rate 79 82 82 Respiratory Rate 18 Blood Pressure 111/72 107/68 107/68 Pulse Oximetry 99 Oxygen Delivery Fraction of Inspired Oxygen 10/13/24 08:00 10/13/24 08:00 10/13/24 08:00 Temperature Pulse Rate 82 68 Respiratory Rate 14 Blood Pressure 107/68 Pulse Oximetry 96 Oxygen Delivery Mechanical Ventilation Fraction of Inspired Oxygen 30 30 10/13/24 08:00 10/13/24 08:00 10/13/24 08:00 Temperature Pulse Rate 76 72 72 Respiratory Rate 14 14 Blood Pressure Pulse Oximetry Oxygen Delivery Fraction of Inspired Oxygen 10/13/24 08:04 10/13/24 10:00 10/13/24 10:00 Temperature Pulse Rate 65 79 78 Respiratory Rate 15 16 Blood Pressure 100/54 L 99/54 L Pulse Oximetry 97 Oxygen Delivery Fraction of Inspired Oxygen 10/13/24 10:00 10/13/24 10:00 10/13/24 10:00 Temperature Pulse Rate 78 75 78 Respiratory Rate 14 Blood Pressure 99/54 L Pulse Oximetry Oxygen Delivery Fraction of Inspired Oxygen 10/13/24 10:00 10/13/24 10:43 10/13/24 11:00 Temperature Pulse Rate 78 70 82 Respiratory Rate 14 Blood Pressure 101/57 L 102/60 Pulse Oximetry Oxygen Delivery Fraction of Inspired Oxygen 10/13/24 11:15 10/13/24 11:30 10/13/24 11:45 Temperature Pulse Rate 77 80 82 Respiratory Rate Blood Pressure 102/58 L 103/59 L 106/61 Pulse Oximetry Oxygen Delivery Fraction of Inspired Oxygen 10/13/24 11:53 10/13/24 12:00 10/13/24 12:00 Temperature 36.7 C Pulse Rate 79 77 82 Respiratory Rate 18 Blood Pressure 103/59 L 105/60 Pulse Oximetry 98 99 Oxygen Delivery Mechanical Ventilation Fraction of Inspired Oxygen 30 10/13/24 12:00 10/13/24 12:00 10/13/24 12:00 Temperature Pulse Rate 68 80 Respiratory Rate 14 Blood Pressure 105/60 Pulse Oximetry 96 Oxygen Delivery Mechanical Ventilation Fraction of Inspired Oxygen 30 30 10/13/24 12:00 10/13/24 12:00 10/13/24 12:00 Temperature Pulse Rate 80 78 80 Respiratory Rate 14 Blood Pressure 105/60 Pulse Oximetry Oxygen Delivery Fraction of Inspired Oxygen 10/13/24 12:00 10/13/24 12:15 10/13/24 12:30 Temperature Pulse Rate 80 76 81 Respiratory Rate 14 Blood Pressure 102/57 L 104/59 L Pulse Oximetry Oxygen Delivery Fraction of Inspired Oxygen 10/13/24 12:45 10/13/24 13:00 10/13/24 13:15 Temperature Pulse Rate 83 83 79 Respiratory Rate Blood Pressure 106/61 106/59 L 104/59 L Pulse Oximetry Oxygen Delivery Fraction of Inspired Oxygen 10/13/24 13:15 10/13/24 13:30 10/13/24 13:44 Temperature Pulse Rate 79 82 85 Respiratory Rate Blood Pressure 104/59 L 108/64 104/61 Pulse Oximetry Oxygen Delivery Fraction of Inspired Oxygen 10/13/24 14:00 10/13/24 14:00 10/13/24 14:00 Temperature Pulse Rate 77 73 73 Respiratory Rate 16 Blood Pressure 117/65 117/65 117/65 Pulse Oximetry 96 Oxygen Delivery Fraction of Inspired Oxygen 10/13/24 14:00 10/13/24 14:00 10/13/24 14:00 Temperature Pulse Rate 66 73 73 Respiratory Rate 14 14 Blood Pressure Pulse Oximetry Oxygen Delivery Fraction of Inspired Oxygen 10/13/24 14:31 10/13/24 14:38 10/13/24 14:43 Temperature Pulse Rate 80 74 78 Respiratory Rate 13 18 Blood Pressure 114/65 Pulse Oximetry 98 97 Oxygen Delivery Mechanical Ventilation Mechanical Ventilation Fraction of Inspired Oxygen 30 10/13/24 14:48 10/13/24 14:52 10/13/24 14:57 Temperature 36.4 C Pulse Rate 72 82 68 Respiratory Rate 14 14 14 Blood Pressure 108/57 L 108/65 106/56 L Pulse Oximetry 96 96 96 Oxygen Delivery Mechanical Ventilation Mechanical Ventilation Fraction of Inspired Oxygen 10/13/24 15:55 10/13/24 15:56 10/13/24 16:00 Temperature Pulse Rate 73 73 64 Respiratory Rate 14 Blood Pressure 116/63 116/63 Pulse Oximetry Oxygen Delivery Fraction of Inspired Oxygen 10/13/24 16:00 10/13/24 16:00 10/13/24 16:00 Temperature 36.9 C Pulse Rate 55 L 67 67 Respiratory Rate 14 Blood Pressure 117/60 117/62 117/62 Pulse Oximetry 98 Oxygen Delivery Fraction of Inspired Oxygen 10/13/24 16:15 10/13/24 17:46 10/13/24 17:47 Temperature Pulse Rate 60 65 67 Respiratory Rate Blood Pressure 130/64 124/62 Pulse Oximetry 100 Oxygen Delivery Mechanical Ventilation Fraction of Inspired Oxygen 30 Intake/Output Intake/Output: Intake & Output 10/11/24 10/11/24 10/12/24 10/13/24 00:59 23:59 23:59 23:59 Intake Total 2062.7 1580.7 1743.4 892.2 Output Total 100 3000 3800 3000 Balance 1962.7 -1419.3 -2056.6 -2107.8 Meds/Results Medications: Active Medications Generic Name Dose Route Start Last Admin Trade Name Freq PRN Reason Stop Dose Admin Acetaminophen 650 mg 10/08/24 20:49 Acetaminophen 650 Mg Suppository RECTAL Q6H PRN Mild Pain (1-3) or Fever Albuterol/Ipratropium 3 ml 10/09/24 14:00 10/13/24 14:37 Ipratropium 0.5 Mg/Albuterol Sulfate 2.5 Mg Ampul.Neb 3 Ml INHALATION 3 ml Q6HRT CESAR Administration Allopurinol 100 mg 10/09/24 08:00 10/13/24 09:49 Allopurinol 100 Mg Tablet PO 100 mg DAILY@0800 CESAR Administration Apixaban 2.5 mg 10/09/24 09:00 10/11/24 20:01 Apixaban 2.5 Mg Tablet PO 2.5 mg Q12HR CESAR Administration Atorvastatin Calcium 10 mg 10/09/24 09:00 10/13/24 09:49 Atorvastatin 10 Mg Tablet PO 10 mg DAILY CESAR Administration Budesonide 0.5 mg 10/09/24 20:00 10/13/24 07:48 Budesonide Respule Neb 0.5 Mg/2 Ml Amp INHALATION 0.5 mg Q12HRT CESAR Administration Dextrose 12.5 gm 10/08/24 22:06 Dextrose 50% 25 Gm/50 Ml Syringe IV PUSH PRN PRN Hypoglycemia Protocol Glucagon 1 mg 10/08/24 22:06 Glucagon For Inj 1 Mg Vial IM PRN PRN Hypoglycemia Protocol Glucose 15 gm 10/08/24 22:06 Glucose Oral Gel 15 Gm Of Glucse In 37.5 Gm Tube PO PRN PRN Hypoglycemia Protocol Hydrocortisone Sodium Succinate 100 mg 10/09/24 14:30 10/13/24 15:39 Hydrocortisone Sodium Succinate 100 Mg/2 Ml Vial IV PUSH 100 mg Q8HR CESAR Administration Dextrose 1,000 mls @ 100 mls/hr 10/08/24 22:06 Dextrose 5% 1,000 Ml IVPB PRN PRN Hypoglycemia Protocol Vasopressin 100 units/ 100 mls @ 0 mls/hr 10/08/24 22:45 10/13/24 17:46 Dextrose IV CONT 0 units/min .Q0M CESAR 0 mls/hr Titration Protocol Ceftriaxone Sodium 2 gm in 100 mls @ 200 mls/hr 10/12/24 11:15 10/13/24 09:19 Rocephin 2 Gm/Ns 100 Ml IVPB 200 mls/hr DAILY CESAR Administration Norepinephrine Bitartrate 8 mg in 250 mls @ 15 mls/hr 10/13/24 05:05 10/13/24 17:47 Levophed 8 Mg/D5w 250 Ml IV CONT 8 mcg/min .[id number] CESAR 15 mls/hr Titration Protocol 8 MCG/MIN Vancomycin HCl 750 mg in 250 mls @ 250 mls/hr 10/13/24 17:00 10/13/24 17:42 Vancomycin 750 Mg/Ns 250 Ml IVPB 10/13/24 17:59 250 mls/hr ONCE ONE Administration Insulin Aspart 4 - 8 units 10/11/24 12:00 10/13/24 16:28 Insulin Aspart (*Bkc) 100 Units/Ml SUB-Q Not Given Q4H CESAR Protocol Insulin Glargine 35 units 10/13/24 09:00 10/13/24 09:19 Insulin Glargine (*Bkc) 100 Units/Ml SUB-Q 35 units QAM CESAR Administration Multi-Ingred Cream/Lotion/Oil/Oint 1 applic 10/10/24 09:00 10/13/24 09:20 Mineral Oil/White Petrolatum Ointment EACH EYE 1 applic Q12HR CESAR Administration Mupirocin 1 applic 10/09/24 09:00 10/13/24 09:20 Mupirocin 2% Oint 22 Gm Tube EACH NARE 1 applic Q12HR CESAR Administration Pantoprazole Sodium 40 mg 10/09/24 13:45 10/13/24 09:20 Pantoprazole Sodium Iv 40 Mg Vial IV PUSH 40 mg QAM CESAR Administration Fluticasone/Salmeterol 2 puff 10/09/24 08:00 10/09/24 09:26 Fluticasone/Salmeterol 115-21 Mcg Inhaler 1 Puff INHALATION Not Given Q12HRT CESAR Sevelamer Carbonate 1,600 mg 10/09/24 08:00 10/13/24 17:42 Sevelamer Carbonate 800 Mg Tablet PO 1,600 mg TIDWM CESAR Administration Sodium Chloride 10 ml 10/09/24 14:00 10/13/24 15:40 Central Line Flush IV PUSH 10 ml Q8HR CESAR Administration Sodium Chloride 20 ml 10/09/24 06:24 Central Line Flush IV PUSH PRN PRN after blood draws Vancomycin HCl 1 each 10/08/24 23:03 Vancomycin For Hemodialysis IVPB 10/14/24 23:59 PRN PRN Vancomycin Protocol Radiology Results: ITS Impressions Pelvis X-Ray 10/08/24 22:22 IMPRESSION: As above. Head CT 10/08/24 23:18 IMPRESSION: No acute intracranial findings. Chest CT 10/08/24 23:27 IMPRESSION: 1. Interstitial thickening in the lower lobes which may indicate pneumonitis. Edema is less likely. 2. Cardiomegaly. 3. Cholelithiasis 4. Splenic cysts unchanged. Chest X-Ray 10/13/24 06:32 Impression: Moderate to advanced pulmonary edema pattern with small bilateral pleural effusions. Correlate clinically for pneumonia. Support tubes, as above. Abdomen X-Ray 10/13/24 15:22 IMPRESSION: Nasogastric tube in good position and ready for immediate use. Labs Labs: Laboratory Results - last 24 hr 10/12/24 10/13/24 10/13/24 20:05 00:17 03:59 WBC RBC Hgb Hct MCV MCH MCHC RDW Plt Count MPV Immature Gran % (Auto) Neut % (Auto) Lymph % (Auto) Foster % (Auto) Eos % (Auto) Baso % (Auto) Lymph # (Auto) Foster # (Auto) Eos # (Auto) Baso # (Auto) Abs Immat Gran (auto) Absolute Neuts (auto) Absolute Nucleated RBC Band Neutrophils % Nucleated RBC % Platelet Estimate Large Platelets % Immature Plt Fraction Poikilocytosis Ovalocytes [place] Cells Schistocytes Puncture Site ABG pH ABG pCO2 ABG pO2 ABG PO2/FiO2 Ratio ABG HCO3 ABG O2 Saturation ABG O2 Content ABG Base Excess A-a Gradient Oxyhemoglobin Carboxyhemoglobin Methemoglobin Reduced Hemoglobin Total Hemoglobin O2 Delivery Device O2 Liters/Min Minute Volume Vent Rate Vent Mode FiO2 Tidal Volume PEEP Peak Inspir Pressure Pressure Support Sodium Potassium Chloride Carbon Dioxide Anion Gap BUN Creatinine Estim Creat Clear Calc Estimated GFR Glucose POC Capillary Glucose 257 H 228 H 228 H Calcium Phosphorus Magnesium Total Bilirubin AST ALT Alkaline Phosphatase Total Protein Albumin Random Vancomycin 10/13/24 10/13/24 10/13/24 04:59 05:11 08:37 WBC 10.0 RBC 4.31 L Hgb 13.2 L Hct 40.6 L MCV 94.2 MCH 30.6 MCHC 32.5 RDW 16.0 H Plt Count 77 L MPV 11.8 H Immature Gran % (Auto) 0.8 H Neut % (Auto) 90.3 H Lymph % (Auto) 3.2 L Foster % (Auto) 5.6 Eos % (Auto) 0.0 Baso % (Auto) 0.1 L Lymph # (Auto) 0.32 L Foster # (Auto) 0.6 Eos # (Auto) 0.0 Baso # (Auto) 0.0 Abs Immat Gran (auto) 0.08 H Absolute Neuts (auto) 9.0 H Absolute Nucleated RBC 0.000 Band Neutrophils % 0 Nucleated RBC % 0.0 Platelet Estimate Decreased Large Platelets Present % Immature Plt Fraction 5.8 Poikilocytosis 1+ Ovalocytes 1+ [place] Cells 1+ Schistocytes None seen Puncture Site Artline ABG pH 7.422 ABG pCO2 35.4 ABG pO2 81.2 ABG PO2/FiO2 Ratio 2.71 ABG HCO3 22.5 ABG O2 Saturation 96.3 ABG O2 Content 18.8 ABG Base Excess -1.3 A-a Gradient 91.1 Oxyhemoglobin 94.0 Carboxyhemoglobin 1.3 Methemoglobin 0.3 Reduced Hemoglobin 4.4 Total Hemoglobin 14.2 O2 Delivery Device Ventilator O2 Liters/Min Not Reportable Minute Volume Not Reportable Vent Rate 14 Vent Mode Cmv FiO2 30 Tidal Volume 450 PEEP 5 Peak Inspir Pressure Not Reportable Pressure Support Not Reportable Sodium 133 L Potassium 4.4 Chloride 93 L Carbon Dioxide 23 Anion Gap 17 H BUN 62 H D Creatinine 5.92 H Estim Creat Clear Calc 10 Estimated GFR 9 L Glucose 260 H POC Capillary Glucose 204 H Calcium 7.6 L Phosphorus 3.9 Magnesium 2.1 Total Bilirubin 1.7 H AST 23 ALT 12 Alkaline Phosphatase 84 Total Protein 7.0 Albumin 3.8 Random Vancomycin 17.8 10/13/24 10/13/24 11:48 15:43 WBC RBC Hgb Hct MCV MCH MCHC RDW Plt Count MPV Immature Gran % (Auto) Neut % (Auto) Lymph % (Auto) Foster % (Auto) Eos % (Auto) Baso % (Auto) Lymph # (Auto) Foster # (Auto) Eos # (Auto) Baso # (Auto) Abs Immat Gran (auto) Absolute Neuts (auto) Absolute Nucleated RBC Band Neutrophils % Nucleated RBC % Platelet Estimate Large Platelets % Immature Plt Fraction Poikilocytosis Ovalocytes [place] Cells Schistocytes Puncture Site ABG pH ABG pCO2 ABG pO2 ABG PO2/FiO2 Ratio ABG HCO3 ABG O2 Saturation ABG O2 Content ABG Base Excess A-a Gradient Oxyhemoglobin Carboxyhemoglobin Methemoglobin Reduced Hemoglobin Total Hemoglobin O2 Delivery Device O2 Liters/Min Minute Volume Vent Rate Vent Mode FiO2 Tidal Volume PEEP Peak Inspir Pressure Pressure Support Sodium Potassium Chloride Carbon Dioxide Anion Gap BUN Creatinine Estim Creat Clear Calc Estimated GFR Glucose POC Capillary Glucose 171 H 130 H Calcium Phosphorus Magnesium Total Bilirubin AST ALT Alkaline Phosphatase Total Protein Albumin Random Vancomycin Quality VTE Prophylaxis VTE prophylaxis: mechanical ordered
[2024-10-13] MEDS: NOREPINEPHRINE 8 MG/D5W 250 ML 8 MG/250 ML BAG 11.25 MG IV CONT (19:31)
[2024-10-13 20:24] LABS: Glucose Point of Care 189 mg/dl (65-105)
[2024-10-14] VITALS (46 sets, daily range): BP systolic 86–103; BP diastolic 42–53; PULSE 62–83; RESP 12–20; TEMP 36.1–37.4; O2SAT 95–100
[2024-10-14] MEDS: INSULIN ASPART (*BKC) 100 UNITS/ML SUB-Q ×5 (01:23→23:27)
[2024-10-14] MEDS: IPRATROPIUM 0.5 MG/ALBUTEROL SULFATE 2.5 MG AMPUL.NEB 3 ML INHALATION ×4 (01:29→20:31)
[2024-10-14 04:34] LABS: Glucose Point of Care 216 mg/dl (65-105)
[2024-10-14 04:34] LABS: Glucose Point of Care 238 mg/dl (65-105)
[2024-10-14 04:44] LABS: Alveolar/Arterial O2 Gradient 81.4 mmHg; Carboxyhemoglobin 1.2 % THb (0-2.0); Fractional Inspired Oxygen 30 %; HCO3 ABG 24.1 mEq/l (22.0-26.0); Methemoglobin ABG 0.3 %THb (0-1.5); Oxygen Content ABG 17.6 %vol (16.0-22.0); Oxygen Saturation ABG 96.1 % (95.0-100.0); Oxyhemoglobin 94.4 % THb (90.0-100.0); PCO2 ABG 41.5 mmHg (35.0-45.0); PO2 ABG 83.7 mmHg (80.0-100.0); PO2 FiO2 Ratio Arterial Blood 2.79 %; Reduced Hemoglobin 4.1 %THb (0-5.0); Total Hemoglobin 13.2 g/dL (12.0-18.0); pH ABG 7.382 (7.350-7.450)
[2024-10-14 04:45] LABS: Arterial Blood Gas PEEP 5 cmH2O; Arterial Blood Gas Tidal Volume 450 ml; Arterial Blood Gas Vent Mode CMV; Arterial Blood Gas Ventilator rate 14 /MIN; Device VENTILATOR; Site Drawn ARTLINE
[2024-10-14] MEDS: HYDROCORTISONE SODIUM SUCCINATE 100 MG/2 ML VIAL IV PUSH ×3 (06:28→20:46)
[2024-10-14] MEDS: CENTRAL LINE FLUSH 10 ML IV PUSH ×3 (06:28→20:47)
[2024-10-14 06:57] LABS: Hematocrit 37.6 % (42.0-52.0); Hemoglobin 12.2 g/dL (14.0-18.0); Immature Granulocyte Absolute 0.07 K/mm3 (0.00-0.031); Immature Granulocyte Percent A 0.7 % (0-0.5); Immature Platelet Fraction Pct 6.1 % (0.9-11.2); Lymphocytes Absolute Auto 0.21 K/mm3 (0.9-3.2); Lymphocytes Percent Auto 2.2 % (18.3-44.2); Mean Corpuscular HGB Conc 32.4 g/dl (32-36); Mean Corpuscular Hemoglobin 31.4 pg (26-34); Mean Corpuscular Volume 96.9 fl (80-100); Mean Platelet Volume 11.5 fl (7.4-10.4); Monocytes Absolute Auto 0.5 K/mm3 (0.1-0.6); Monocytes Percent Auto 5.4 % (2.6-8.5); Neutrophils Absolute Auto 8.7 K/mm3 (1.3-6.7); Neutrophils Percent Auto 91.7 % (45.5-73.1); Platelet Count Result 65 k/mm3 (150-375); Red Blood Count 3.88 M/mm3 (4.6-6.20); Red Cell Distribution Width 16.2 % (11.5-14.5); White Blood Count 9.5 K/mm3 (4.5-10.0)
[2024-10-14 07:17] LABS: Alanine Aminotransferase 13 U/L (6-50); Albumin Level 3.6 g/dL (3.5-5.1); Alkaline Phosphatase 97 U/L (38-126); Anion Gap 15 mmol/L (4-12); Aspartate Amino Transferase 27 U/L (17-59); Bilirubin,Total 1.7 mg/dL (0.2-1.3); Blood Urea Nitrogen 46 mg/dL (9-20); Calcium 7.9 mg/dL (8.4-10.2); Carbon Dioxide 25 mmol/L (22-30); Chloride 96 mmol/L (98-107); Estimated CRCL calculation 13 ml/min; Estimated Glomerular Filt Rate 13; Glucose 176 mg/dL (65-110); Magnesium 2.2 mg/dL (1.6-2.3); Phosphorus 2.9 mg/dL (2.5-4.5); Sodium 136 mmol/L (137-145)
[2024-10-14] MEDS: ALBUMIN HUMAN 25% 25 GM/100 ML 100 ML IVPB (08:05)
[2024-10-14] MEDS: BUDESONIDE RESPULE NEB 0.5 MG/2 ML AMP INHALATION ×2 (08:38→20:31)
[2024-10-14] MEDS: ATORVASTATIN 10 MG TABLET PO (09:24)
[2024-10-14] MEDS: SEVELAMER CARBONATE 0.8 GM ORAL POWDER PACKET 1.6 GM BY MOUTH ×3 (09:24→16:44)
[2024-10-14] MEDS: allopurinoL 100 MG TABLET PO (09:24)
--- NOTE | 2024-10-14 09:24 | P.PNINT_ITS ---
Progress Note: A&P Assessment and Plan (1) Respiratory failure: Code(s): J96.90 - Respiratory failure, unspecified, unspecified whether with hypoxia or hypercapnia Status: Acute Assessment and Plan: Acute respiratory failure likely related to pneumonia, altered mental status, airway protection 10/08: Intubated -currently on CMV mode of ventilation, peep of 5, 30% FiO2 - continue bronchodilators and Pulmicort -chest x-ray reviewed, ventilator adjusted -he currently on sedation holiday. He is currently getting dialyzed. Will evaluate for weaning trial after dialysis today (2) Septic shock: Code(s): A41.9 - Sepsis, unspecified organism; R65.21 - Severe sepsis with septic shock Status: Acute Assessment and Plan: Patient presented with altered mental status, hypotension, lactic acidosis -septic shock likely related to bacteremia, bilateral pneumonia along with influenza -continue azithromycin, ceftriaxone, vanc, (10/08) -10/08: Blood cultures growing strep mitis 10/10 repeat set of blood culture sent and negative till now -TTE and ROBERT are negative for evidence of valve vegetations -patient did receive 1500 mL in IV fluids on had upon admission -status post albumin 25% q.6 hours x4 doses for intravascular volume expansion -patient remains on Levophed but off of epinephrine and vasopressin, maintain MAP > greater than 65 mmHg or SBP greater than 100 mmHg for adequate end organ perfusion -continue hydrocortisone (3) Bacteremia: Code(s): R78.81 - Bacteremia Status: Acute Assessment and Plan: 10/08: Blood cultures growing strep mitis group 10/10 repeat set of blood culture sent and negative till now -continue antibiotics as above TTE as below ROBERT negative for evidence of vegetation (4) Influenza A: Code(s): J10.1 - Influenza due to other identified influenza virus with other respiratory manifestations Status: Acute Assessment and Plan: Continue Tamiflu, renally dosed (5) Pneumonia: Code(s): J18.9 - Pneumonia, unspecified organism Status: Acute Assessment and Plan: Chest x-ray showed pneumonia, CT chest showed pneumonitis, -continue antibiotics as above (6) Altered mental status: Code(s): R41.82 - Altered mental status, unspecified Status: Acute Assessment and Plan: Currently intubated and sedated Head CT was negative for any acute changes at the time presentation (7) End-stage renal disease on hemodialysis: Code(s): N18.6 - End stage renal disease; Z99.2 - Dependence on renal dialysis Status: Acute Assessment and Plan: End-stage renal disease on dialysis (M, W, F) -dialysis per Nephrology. Patient is getting dialyzed today (8) Diabetes: Qualifiers: Diabetes mellitus type: type 2 Diabetes mellitus retirement insulin use: without retirement use Diabetes mellitus complication status: with kidney complications Diabetes mellitus complication detail: with chronic kidney disease Chronic kidney disease stage: on chronic dialysis Qualified Code(s): E11.22 - Type 2 diabetes mellitus with diabetic chronic kidney disease; N18.6 - End stage renal disease; Z99.2 - Dependence on renal dialysis Code(s): E11.9 - Type 2 diabetes mellitus without complications Status: Chronic Assessment and Plan: Continue current sliding scale and Lantus dose Plan DVT prophylaxis: SCDs, Eliquis is on hold secondary to thrombocytopenia Stress ulcer prophylaxis: Protonix Nutrition: Tube feeds Code Status: Full code Critical Care Time Spent: 30 minutes Due to a high probability of clinically significant, life threatening deterioration, the patient required my highest level of preparedness to intervene emergently and I personally spent this critical care time directly and personally managing the patient. This critical care time included obtaining a history; examining the patient; pulse oximetry; ordering and review of studies; arranging urgent treatment with development of a management plan; evaluation of patient's response to treatment; frequent reassessment; and discussions with other providers. It was exclusive of separately billable procedures and treating other patients and teaching time. Please see Assessment and Plan section and the rest of the note for further information on patient assessment and treatment This dictation may have been done utilizing a voice recognition system. Attempts have been made to correct errors. However, there may be uncorrected grammatical, spelling, and recognitions errors present. Subjective Date/time seen: 10/14/24 Overnight events reviewed. Afebrile Continues to be on mechanical ventilation 30% FiO2 Continues to be on low-dose Levophed. Vasopressin has been weaned off Off sedatives. Patient is awake and opens his eyes on calling his name. He does follow commands but only intermittently. Unable to provide any history Other Vitals acceptable Interval history: Follow-up for end stage renal disease on hemodialysis. Review of Systems Review of Systems: ROS unobtainable: Yes unobtainable due to endotracheal tube, unobtainable due to medical condition and unobtainable due to mental status Exam Narrative: General: Sedated and intubated, in no acute distress HEENT:? Pupils equal and reactive bilaterally Neck:? Supple Respiratory:? Coarse breath sounds bilaterally, decreased at bases, no wheezing, adequate air entry Cardiac:? Irregularly irregular, bradycardic Abdomen:? Soft, nontender, nondistended, protuberant, hypoactive bowel sound Extremities:? Bilateral lower extremity edema pitting in nature, palpable pedal pulses Neuro:? Patient is intubated, off sedation she opens eyes on calling his name and regards examiner, he follows commands but intermittently and appears very weak, withdraws to pain in all extremity Skin:? Skin is dry and flaky Psych:? Unable to assess at this time Objective Data Vital Signs Vital Signs: Vital Signs - 24 hr 10/13/24 10:00 10/13/24 10:00 10/13/24 10:00 Temperature Pulse Rate 79 78 78 Respiratory Rate 16 Blood Pressure 100/54 L 99/54 L 99/54 L Pulse Oximetry 97 Oxygen Delivery Fraction of Inspired Oxygen 10/13/24 10:00 10/13/24 10:00 10/13/24 10:00 Temperature Pulse Rate 75 78 78 Respiratory Rate 14 14 Blood Pressure Pulse Oximetry Oxygen Delivery Fraction of Inspired Oxygen 10/13/24 10:43 10/13/24 11:00 10/13/24 11:15 Temperature Pulse Rate 70 82 77 Respiratory Rate Blood Pressure 101/57 L 102/60 102/58 L Pulse Oximetry Oxygen Delivery Fraction of Inspired Oxygen 10/13/24 11:30 10/13/24 11:45 10/13/24 11:53 Temperature Pulse Rate 80 82 79 Respiratory Rate Blood Pressure 103/59 L 106/61 Pulse Oximetry 98 Oxygen Delivery Mechanical Ventilation Fraction of Inspired Oxygen 30 10/13/24 12:00 10/13/24 12:00 10/13/24 12:00 Temperature 36.7 C Pulse Rate 77 82 Respiratory Rate 18 Blood Pressure 103/59 L 105/60 Pulse Oximetry 99 Oxygen Delivery Fraction of Inspired Oxygen 30 10/13/24 12:00 10/13/24 12:00 10/13/24 12:00 Temperature Pulse Rate 68 80 80 Respiratory Rate 14 Blood Pressure 105/60 105/60 Pulse Oximetry 96 Oxygen Delivery Mechanical Ventilation Fraction of Inspired Oxygen 30 10/13/24 12:00 10/13/24 12:00 10/13/24 12:00 Temperature Pulse Rate 78 80 80 Respiratory Rate 14 14 Blood Pressure Pulse Oximetry Oxygen Delivery Fraction of Inspired Oxygen 10/13/24 12:15 10/13/24 12:30 10/13/24 12:45 Temperature Pulse Rate 76 81 83 Respiratory Rate Blood Pressure 102/57 L 104/59 L 106/61 Pulse Oximetry Oxygen Delivery Fraction of Inspired Oxygen 10/13/24 13:00 10/13/24 13:15 10/13/24 13:15 Temperature Pulse Rate 83 79 79 Respiratory Rate Blood Pressure 106/59 L 104/59 L 104/59 L Pulse Oximetry Oxygen Delivery Fraction of Inspired Oxygen 10/13/24 13:30 10/13/24 13:44 10/13/24 14:00 Temperature Pulse Rate 82 85 77 Respiratory Rate 16 Blood Pressure 108/64 104/61 117/65 Pulse Oximetry 96 Oxygen Delivery Fraction of Inspired Oxygen 10/13/24 14:00 10/13/24 14:00 10/13/24 14:00 Temperature Pulse Rate 73 73 66 Respiratory Rate Blood Pressure 117/65 117/65 Pulse Oximetry Oxygen Delivery Fraction of Inspired Oxygen 10/13/24 14:00 10/13/24 14:00 10/13/24 14:31 Temperature Pulse Rate 73 73 80 Respiratory Rate 14 14 Blood Pressure Pulse Oximetry 98 Oxygen Delivery Mechanical Ventilation Fraction of Inspired Oxygen 30 10/13/24 14:38 10/13/24 14:43 10/13/24 14:48 Temperature Pulse Rate 74 78 72 Respiratory Rate 13 18 14 Blood Pressure 114/65 108/57 L Pulse Oximetry 97 96 Oxygen Delivery Mechanical Ventilation Mechanical Ventilation Fraction of Inspired Oxygen 10/13/24 14:52 10/13/24 14:57 10/13/24 15:55 Temperature 36.4 C Pulse Rate 82 68 73 Respiratory Rate 14 14 Blood Pressure 108/65 106/56 L 116/63 Pulse Oximetry 96 96 Oxygen Delivery Mechanical Ventilation Fraction of Inspired Oxygen 10/13/24 15:56 10/13/24 16:00 10/13/24 16:00 Temperature 36.9 C Pulse Rate 73 64 55 L Respiratory Rate 14 14 Blood Pressure 116/63 117/60 Pulse Oximetry 98 Oxygen Delivery Fraction of Inspired Oxygen 10/13/24 16:00 10/13/24 16:00 10/13/24 16:00 Temperature Pulse Rate 67 67 Respiratory Rate Blood Pressure 117/62 117/62 Pulse Oximetry Oxygen Delivery Fraction of Inspired Oxygen 30 10/13/24 16:00 10/13/24 16:00 10/13/24 16:15 Temperature Pulse Rate 61 68 60 Respiratory Rate 14 Blood Pressure Pulse Oximetry 96 100 Oxygen Delivery Mechanical Ventilation Mechanical Ventilation Fraction of Inspired Oxygen 30 30 10/13/24 17:46 10/13/24 17:47 10/13/24 18:00 Temperature Pulse Rate 65 67 66 Respiratory Rate Blood Pressure 130/64 124/62 122/62 Pulse Oximetry Oxygen Delivery Fraction of Inspired Oxygen 10/13/24 18:00 10/13/24 18:00 10/13/24 18:00 Temperature Pulse Rate 66 65 63 Respiratory Rate 14 Blood Pressure 122/62 123/63 Pulse Oximetry 99 Oxygen Delivery Fraction of Inspired Oxygen 10/13/24 18:24 10/13/24 18:38 10/13/24 19:31 Temperature Pulse Rate 60 61 71 Respiratory Rate Blood Pressure 112/55 L 106/53 L 97/51 L Pulse Oximetry Oxygen Delivery Fraction of Inspired Oxygen 10/13/24 19:31 10/13/24 20:00 10/13/24 20:00 Temperature Pulse Rate 71 73 72 Respiratory Rate 16 Blood Pressure 97/51 L 92/49 L Pulse Oximetry 98 Oxygen Delivery Mechanical Ventilation Fraction of Inspired Oxygen 30 10/13/24 20:00 10/13/24 20:00 10/13/24 20:00 Temperature Pulse Rate 73 73 Respiratory Rate Blood Pressure 92/49 L Pulse Oximetry Oxygen Delivery Fraction of Inspired Oxygen 30 10/13/24 20:02 10/13/24 20:02 10/13/24 20:11 Temperature 37.0 C Pulse Rate 77 77 73 Respiratory Rate 15 26 H Blood Pressure 89/47 L Pulse Oximetry 100 98 Oxygen Delivery Mechanical Ventilation Fraction of Inspired Oxygen 30 10/13/24 20:21 10/13/24 21:00 10/13/24 22:00 Temperature Pulse Rate 76 66 71 Respiratory Rate 14 Blood Pressure 83/45 L Pulse Oximetry Oxygen Delivery Fraction of Inspired Oxygen 10/13/24 22:00 10/13/24 22:00 10/13/24 22:00 Temperature Pulse Rate 71 71 71 Respiratory Rate 15 Blood Pressure 97/51 L 97/51 L 97/51 L Pulse Oximetry 98 Oxygen Delivery Fraction of Inspired Oxygen 10/13/24 22:26 10/14/24 00:00 10/14/24 00:00 Temperature Pulse Rate 64 72 72 Respiratory Rate Blood Pressure 95/52 L 95/52 L Pulse Oximetry 98 Oxygen Delivery Mechanical Ventilation Fraction of Inspired Oxygen 30 10/14/24 00:00 10/14/24 00:00 10/14/24 00:00 Temperature 36.8 C Pulse Rate 72 72 Respiratory Rate 16 16 Blood Pressure 94/51 L Pulse Oximetry 98 98 Oxygen Delivery Mechanical Ventilation Fraction of Inspired Oxygen 30 30 10/14/24 00:00 10/14/24 01:29 10/14/24 01:29 Temperature Pulse Rate 76 73 73 Respiratory Rate 18 Blood Pressure Pulse Oximetry 99 Oxygen Delivery Mechanical Ventilation Fraction of Inspired Oxygen 30 10/14/24 01:46 10/14/24 02:00 10/14/24 02:00 Temperature Pulse Rate 67 70 70 Respiratory Rate 16 14 Blood Pressure 89/49 L 89/49 L Pulse Oximetry 99 Oxygen Delivery Fraction of Inspired Oxygen 10/14/24 02:00 10/14/24 02:00 10/14/24 04:00 Temperature Pulse Rate 70 70 72 Respiratory Rate 15 Blood Pressure 89/49 L Pulse Oximetry 99 Oxygen Delivery Mechanical Ventilation Fraction of Inspired Oxygen 30 10/14/24 04:00 10/14/24 04:00 10/14/24 04:00 Temperature 36.8 C Pulse Rate 71 72 Respiratory Rate 15 Blood Pressure 95/53 L Pulse Oximetry 99 Oxygen Delivery Fraction of Inspired Oxygen 30 10/14/24 04:00 10/14/24 04:00 10/14/24 04:41 Temperature Pulse Rate 72 72 67 Respiratory Rate Blood Pressure 95/53 L 95/53 L Pulse Oximetry 98 Oxygen Delivery Mechanical Ventilation Fraction of Inspired Oxygen 30 10/14/24 06:00 10/14/24 06:00 10/14/24 06:00 Temperature Pulse Rate 71 71 71 Respiratory Rate 17 Blood Pressure 93/51 L 94/51 L Pulse Oximetry 100 Oxygen Delivery Fraction of Inspired Oxygen 10/14/24 06:00 10/14/24 07:45 10/14/24 08:00 Temperature 36.6 C Pulse Rate 71 73 71 Respiratory Rate 19 Blood Pressure 94/51 L 91/46 L 94/48 L Pulse Oximetry 97 Oxygen Delivery Fraction of Inspired Oxygen 10/14/24 08:00 10/14/24 08:15 10/14/24 08:30 Temperature Pulse Rate 74 72 Respiratory Rate Blood Pressure 91/46 L 90/47 L Pulse Oximetry Oxygen Delivery Fraction of Inspired Oxygen 30 10/14/24 08:39 10/14/24 08:45 10/14/24 08:57 Temperature Pulse Rate 72 75 72 Respiratory Rate 18 Blood Pressure 96/49 L Pulse Oximetry 97 Oxygen Delivery Mechanical Ventilation Fraction of Inspired Oxygen 30 10/14/24 08:57 10/14/24 09:00 10/14/24 09:04 Temperature Pulse Rate 70 69 65 Respiratory Rate 15 Blood Pressure 87/44 L 86/44 L Pulse Oximetry Oxygen Delivery Fraction of Inspired Oxygen 10/14/24 09:15 Temperature Pulse Rate 72 Respiratory Rate Blood Pressure 90/46 L Pulse Oximetry Oxygen Delivery Fraction of Inspired Oxygen Intake/Output Intake/Output: Intake & Output 10/11/24 10/12/24 10/13/24 10/14/24 23:59 23:59 23:59 23:59 Intake Total 1580.7 1743.4 1043.2 737 Output Total 3000 3800 3000 Balance -1419.3 -2056.6 -1956.8 737 Meds/Results Medications: Active Medications Generic Name Dose Route Start Last Admin Trade Name Freq PRN Reason Stop Dose Admin Acetaminophen 650 mg 10/08/24 20:49 Acetaminophen 650 Mg Suppository RECTAL Q6H PRN Mild Pain (1-3) or Fever Albuterol/Ipratropium 3 ml 10/09/24 14:00 10/14/24 08:38 Ipratropium 0.5 Mg/Albuterol Sulfate 2.5 Mg Ampul.Neb 3 Ml INHALATION 3 ml Q6HRT CESAR Administration Allopurinol 100 mg 10/09/24 08:00 10/13/24 09:49 Allopurinol 100 Mg Tablet PO 100 mg DAILY@0800 CESAR Administration Apixaban 2.5 mg 10/09/24 09:00 10/11/24 20:01 Apixaban 2.5 Mg Tablet PO 2.5 mg Q12HR CESAR Administration Atorvastatin Calcium 10 mg 10/09/24 09:00 10/13/24 09:49 Atorvastatin 10 Mg Tablet PO 10 mg DAILY CESAR Administration Budesonide 0.5 mg 10/09/24 20:00 10/14/24 08:38 Budesonide Respule Neb 0.5 Mg/2 Ml Amp INHALATION 0.5 mg Q12HRT CESAR Administration Dextrose 12.5 gm 10/08/24 22:06 Dextrose 50% 25 Gm/50 Ml Syringe IV PUSH PRN PRN Hypoglycemia Protocol Glucagon 1 mg 10/08/24 22:06 Glucagon For Inj 1 Mg Vial IM PRN PRN Hypoglycemia Protocol Glucose 15 gm 10/08/24 22:06 Glucose Oral Gel 15 Gm Of Glucse In 37.5 Gm Tube PO PRN PRN Hypoglycemia Protocol Hydrocortisone Sodium Succinate 100 mg 10/09/24 14:30 10/14/24 06:28 Hydrocortisone Sodium Succinate 100 Mg/2 Ml Vial IV PUSH 100 mg Q8HR CESAR Administration Dextrose 1,000 mls @ 100 mls/hr 10/08/24 22:06 Dextrose 5% 1,000 Ml IVPB PRN PRN Hypoglycemia Protocol Vasopressin 100 units/ 100 mls @ 0 mls/hr 10/08/24 22:45 10/14/24 06:00 Dextrose IV CONT 0 units/min .Q0M CESAR 0 mls/hr Titration Protocol Ceftriaxone Sodium 2 gm in 100 mls @ 200 mls/hr 10/12/24 11:15 10/13/24 09:19 Rocephin 2 Gm/Ns 100 Ml IVPB 200 mls/hr DAILY CESAR Administration Norepinephrine Bitartrate 8 mg in 250 mls @ 15 mls/hr 10/13/24 05:05 10/14/24 06:00 Levophed 8 Mg/D5w 250 Ml IV CONT 8 mcg/min .[id number] CESAR 15 mls/hr Titration Protocol 8 MCG/MIN Albumin Human 50 mls @ 999 mls/hr 10/14/24 06:24 Albutein IVPB 11/13/24 06:23 Q10M PRN HYPOTENSION Insulin Aspart 4 - 8 units 10/11/24 12:00 10/14/24 04:16 Insulin Aspart (*Bkc) 100 Units/Ml SUB-Q 4 units Q4H CESAR Administration Protocol Insulin Glargine 35 units 10/13/24 09:00 10/13/24 09:19 Insulin Glargine (*Bkc) 100 Units/Ml SUB-Q 35 units QAM CESAR Administration Multi-Ingred Cream/Lotion/Oil/Oint 1 applic 10/10/24 09:00 10/13/24 20:54 Mineral Oil/White Petrolatum Ointment EACH EYE 1 applic Q12HR CESAR Administration Mupirocin 1 applic 10/09/24 09:00 10/13/24 20:54 Mupirocin 2% Oint 22 Gm Tube EACH NARE 1 applic Q12HR CESAR Administration Pantoprazole Sodium 40 mg 10/09/24 13:45 10/13/24 09:20 Pantoprazole Sodium Iv 40 Mg Vial IV PUSH 40 mg QAM CESAR Administration Fluticasone/Salmeterol 2 puff 10/09/24 08:00 10/09/24 09:26 Fluticasone/Salmeterol 115-21 Mcg Inhaler 1 Puff INHALATION Not Given Q12HRT CESAR Sevelamer Carbonate 1.6 gm 10/14/24 08:45 Sevelamer Carbonate 0.8 Gm Oral Powder Packet BY MOUTH TIDWM CESAR Sodium Chloride 10 ml 10/09/24 14:00 10/14/24 06:28 Central Line Flush IV PUSH 10 ml Q8HR CESAR Administration Sodium Chloride 20 ml 10/09/24 06:24 Central Line Flush IV PUSH PRN PRN after blood draws Vancomycin HCl 1 each 10/08/24 23:03 Vancomycin For Hemodialysis IVPB 10/14/24 23:59 PRN PRN Vancomycin Protocol Radiology Results: ITS Impressions Pelvis X-Ray 10/08/24 22:22 IMPRESSION: As above. Head CT 10/08/24 23:18 IMPRESSION: No acute intracranial findings. Chest CT 10/08/24 23:27 IMPRESSION: 1. Interstitial thickening in the lower lobes which may indicate pneumonitis. Edema is less likely. 2. Cardiomegaly. 3. Cholelithiasis 4. Splenic cysts unchanged. Abdomen X-Ray 10/13/24 15:22 IMPRESSION: Nasogastric tube in good position and ready for immediate use. Chest X-Ray 10/14/24 06:37 Impression: Probable mild bibasilar pulmonary edema and minimal right pleural effusion. Correlate currently for pneumonia. Support tubes, as above. Labs Labs: Laboratory Results - last 24 hr 10/13/24 10/13/24 10/13/24 11:48 15:43 20:21 WBC RBC Hgb Hct MCV MCH MCHC RDW Plt Count MPV Immature Gran % (Auto) Neut % (Auto) Lymph % (Auto) [place] % (Auto) Eos % (Auto) Baso % (Auto) Lymph # (Auto) [place] # (Auto) Eos # (Auto) Baso # (Auto) Abs Immat Gran (auto) Absolute Neuts (auto) Absolute Nucleated RBC Nucleated RBC % % Immature Plt Fraction Puncture Site ABG pH ABG pCO2 ABG pO2 ABG PO2/FiO2 Ratio ABG HCO3 ABG O2 Saturation ABG O2 Content ABG Base Excess A-a Gradient Oxyhemoglobin Carboxyhemoglobin Methemoglobin Reduced Hemoglobin Total Hemoglobin O2 Delivery Device O2 Liters/Min Minute Volume Vent Rate Vent Mode FiO2 Tidal Volume PEEP Peak Inspir Pressure Pressure Support Sodium Potassium Chloride Carbon Dioxide Anion Gap BUN Creatinine Estim Creat Clear Calc Estimated GFR Glucose POC Capillary Glucose 171 H 130 H 189 H Calcium Phosphorus Magnesium Total Bilirubin AST ALT Alkaline Phosphatase Total Protein Albumin 10/14/24 10/14/24 10/14/24 01:22 03:51 04:35 WBC RBC Hgb Hct MCV MCH MCHC RDW Plt Count MPV Immature Gran % (Auto) Neut % (Auto) Lymph % (Auto) [place] % (Auto) Eos % (Auto) Baso % (Auto) Lymph # (Auto) [place] # (Auto) Eos # (Auto) Baso # (Auto) Abs Immat Gran (auto) Absolute Neuts (auto) Absolute Nucleated RBC Nucleated RBC % % Immature Plt Fraction Puncture Site Artline ABG pH 7.382 ABG pCO2 41.5 ABG pO2 83.7 ABG PO2/FiO2 Ratio 2.79 ABG HCO3 24.1 ABG O2 Saturation 96.1 ABG O2 Content 17.6 ABG Base Excess -1.0 A-a Gradient 81.4 Oxyhemoglobin 94.4 Carboxyhemoglobin 1.2 Methemoglobin 0.3 Reduced Hemoglobin 4.1 Total Hemoglobin 13.2 O2 Delivery Device Ventilator O2 Liters/Min Not Reportable Minute Volume Not Reportable Vent Rate 14 Vent Mode Cmv FiO2 30 Tidal Volume 450 PEEP 5 Peak Inspir Pressure Not Reportable Pressure Support Not Reportable Sodium Potassium Chloride Carbon Dioxide Anion Gap BUN Creatinine Estim Creat Clear Calc Estimated GFR Glucose POC Capillary Glucose 216 H 238 H Calcium Phosphorus Magnesium Total Bilirubin AST ALT Alkaline Phosphatase Total Protein Albumin 10/14/24 06:34 WBC 9.5 RBC 3.88 L Hgb 12.2 L Hct 37.6 L MCV 96.9 MCH 31.4 MCHC 32.4 RDW 16.2 H Plt Count 65 L MPV 11.5 H Immature Gran % (Auto) 0.7 H Neut % (Auto) 91.7 H Lymph % (Auto) 2.[address] [place] % (Auto) 5.4 Eos % (Auto) 0.0 Baso % (Auto) 0.0 L Lymph # (Auto) 0.[address] [place] # (Auto) 0.5 Eos # (Auto) 0.0 Baso # (Auto) 0.0 Abs Immat Gran (auto) 0.07 H Absolute Neuts (auto) 8.7 H Absolute Nucleated RBC 0.000 Nucleated RBC % 0.0 % Immature Plt Fraction 6.1 Puncture Site ABG pH ABG pCO2 ABG pO2 ABG PO2/FiO2 Ratio ABG HCO3 ABG O2 Saturation ABG O2 Content ABG Base Excess A-a Gradient Oxyhemoglobin Carboxyhemoglobin Methemoglobin Reduced Hemoglobin Total Hemoglobin O2 Delivery Device O2 Liters/Min Minute Volume Vent Rate Vent Mode FiO2 Tidal Volume PEEP Peak Inspir Pressure Pressure Support Sodium 136 L Potassium 4.0 Chloride 96 L Carbon Dioxide 25 Anion Gap 15 H BUN 46 H D Creatinine 4.42 H Estim Creat Clear Calc 13 Estimated GFR 13 L Glucose 176 H POC Capillary Glucose Calcium 7.9 L Phosphorus 2.9 Magnesium 2.2 Total Bilirubin 1.7 H AST 27 ALT 13 Alkaline Phosphatase 97 Total Protein 7.0 Albumin 3.6 Quality VTE Prophylaxis VTE prophylaxis: mechanical ordered
[2024-10-14] MEDS: PANTOPRAZOLE SODIUM IV 40 MG VIAL IV PUSH (09:38)
[2024-10-14] MEDS: MINERAL OIL/WHITE PETROLATUM OINTMENT 1 APPLIC EACH EYE ×2 (09:38→20:48)
[2024-10-14] MEDS: MUPIROCIN 2% OINT 22 GM TUBE 1 APPLIC EACH NARE ×2 (09:38→20:48)
[2024-10-14] MEDS: cefTRIAXone 2 GM/NS 100 ML 2 GM/100 ML BAG IVPB (09:38)
[2024-10-14 09:48] LABS: Glucose Point of Care 97 mg/dl (65-105)
--- NOTE | 2024-10-14 10:28 | PCFNICU ---
ICU Rounding Note: Pt current nutrition is Nepro at 40 ml/hr Last recorded weight is 97.7 kg, down from 103.6 kg. Dialysis patient. Bowel Motility: +Bm reported 10/12 Labs Reviewed:Glu 176, BUN 13, Cr 4.42, Na 136 Meds Noted:Rocephin, Lantus,Protonix. Skin: WNL Additional Notes: Patient remains on mechanical vent. Dialysis today. Tube feedings are being tolerated of Nepro at 40 ml/hr. orders for Prosource BID for additional 160 kcal and 40 gm protein. Total Nutrition: 1744 kcal/106gm protein/640 ml water. Flush 30 ml q 4 hours. Following daily in ICU rounds. Monitoring vitals, labs, meds, weights, TF tolerance, output Reassess Tuesdays and Fridays.
[2024-10-14 12:05] LABS: Glucose Point of Care 195 mg/dl (65-105)
[2024-10-14] MEDS: NOREPINEPHRINE 8 MG/D5W 250 ML 8 MG/250 ML BAG 15 MG IV CONT (12:41)
--- NOTE | 2024-10-14 13:10 | P.PNNP_ITS ---
Progress Note: A&P Assessment and Plan (1) End-stage renal disease (ESRD): Code(s): N18.6 - End stage renal disease Status: Chronic Assessment and Plan: * HD tomorrow * continue Fri/Fri/Friday dialysis schedule next week while hospitalized * follow electrolytes, volume status, and clearance (2) Septic shock: Code(s): A41.9 - Sepsis, unspecified organism; R65.21 - Severe sepsis with septic shock Status: Acute Assessment and Plan: * as noted on presentation - AMS + acute on chronic hypotension + lactic acidosis * complicated by chronic hypotension at baseline (on midodrine at baseline) * presumed to be secondary to bacteremia, pneumonia and influenza * culture data noted: * blood cultures (on 10/08) with Streptococcus mitis * blood cultures (on 10/10) with no growth to date * s/p IVFs and IV albumin for volume expansion * requiring vasopressor therapy to maintain MAP/blood pressure * wean as tolerated * Echo results noted (see #4) -- no evidence of endocarditis * stress dose steroids * follow hemodynamics (3) Acute respiratory failure: Code(s): J96.00 - Acute respiratory failure, unspecified whether with hypoxia or hypercapnia Status: Acute Assessment and Plan: * multifactorial: * pneumonia * altered mental status * need for airway protection * fluid * intubated on 10/08 in ER * on bronchodilators * fluid removal with dialysis as tolerated * dry ultrafiltration on 10/12 * dry ultrafiltration on 10/14 (4) Bacteremia: Code(s): R78.81 - Bacteremia Status: Acute Assessment and Plan: * 10/08 blood cultures with Streptococcus mitis * 10/10 repeat set of blood culture with growth to date * TTE (10/11 )results noted: * left ventricular systolic function is normal, estimated at > 70% * left ventricular diastolic function is grade II diastolic dysfunction * right ventricular systolic function is reduced. * flattening of the septum in diastole and systole consistent with right ventricular volume and pressure overload * left and right atrial chamber dimension is severely enlarged * mild mitral valve regurgitation * moderate to severe tricuspid valve regurgitation. * pulmonary hypertension, estimated pulmonary arterial systolic pressureis 66 mmHg * cannot rule out vegetations on this study * ROBERT (10/13): * no vegetations noted on the mitral valve -- trace mitral valve regurgitation * no vegetations noted on tricuspid valve -- moderate tricuspid valve regurgitation * no vegetations on the aortic valve -- aortic valve is trileaflet * pulmonary valve appears grossly normal without vegetations * interatrial septum is anatomically normal without evidence of shunt with color-flow Doppler * mild atherosclerotic disease in the aorta. * on antibiotics * see #2 (5) Pneumonia: Code(s): J18.9 - Pneumonia, unspecified organism Status: Acute Assessment and Plan: * suggested by recent imaging (CXR + CT scan) * on antibiotics (6) Influenza A: Code(s): J10.1 - Influenza due to other identified influenza virus with other respiratory manifestations Status: Acute Assessment and Plan: * as noted by testing in ER * completed course of Tamiflu (renally dosed) (7) Altered mental status: Code(s): R41.82 - Altered mental status, unspecified Status: Acute Assessment and Plan: * noted in ER prior to intubatnio * presumably due to acute illness (infection/sepsis/shock...etc) * negative head CT * reassess once extubated (8) Anemia: Qualifiers: Anemia type: unspecified type Qualified Code(s): D64.9 - Anemia, unspecified Code(s): D64.9 - Anemia, unspecified Status: Chronic Assessment and Plan: * due to ESRD * hold Retacrit since Hgb > 10 * follow trend of H/H (9) Diabetes: Qualifiers: Diabetes mellitus type: type 2 Diabetes mellitus ocean transportation intermediary insulin use: without senior living use Diabetes mellitus complication status: with kidney complications Diabetes mellitus complication detail: with chronic kidney disease Chronic kidney disease stage: on chronic dialysis Qualified Code(s): E 11.22 - Type 2 diabetes mellitus with diabetic chronic kidney disease; N18.6 - End stage renal disease; Z99.2 - Dependence on renal dialysis Code(s): E11.9 - Type 2 diabetes mellitus without complications Status: Chronic Assessment and Plan: * follow accu-cheks * glycemic control per hospitalist/helper animal laboratory Will continue to follow. L Subjective Date/time seen: 10/14/24 13:10 Interval history: Follow-up for end stage renal disease on hemodialysis. Tolerated dialysis yesterday without any issues or problems; remain intubated and on mechanical ventilation; opens eyes and follows commands intermittently when off sedation; s/p ROBERT yesterday with results noted; remains on low dose levophed but vasopressin has been weaned off; no other issues/events overnight or earlier this morning. Exam 2 Narrative: General: elderly male intubated and on mechanical ventilation Heart: IRRR, normal S1 and S2; no rub Lungs: coarse breath sounds Abdomen: soft, nontender, nondistended, positive bowel sounds Extremities: no cyanosis or clubbing; chonic edema Skin: no nodules Objective Data Vital Signs Vital Signs: Vital Signs Temp Pulse Resp BP Pulse Ox O2 Del Method FiO2 10/14/24 13:00 79 15 103/51 L 97 Mechanical Ventilation 10/14/24 12:41 70 88/42 L 10/14/24 12:34 72 88/42 L 10/14/24 12:00 74 10/14/24 12:00 30 10/14/24 12:00 72 14 99 Mechanical Ventilation 10/14/24 12:00 72 101/49 L 10/14/24 12:00 72 101/49 L 10/14/24 12:00 97.3 F L 72 14 101/49 L 99 10/14/24 11:08 96.9 F L 73 12 100/50 L 99 10/14/24 11:00 69 91/47 L 10/14/24 10:56 74 100 Mechanical Ventilation 10/14/24 10:45 78 93/48 L 10/14/24 10:30 70 88/45 L 10/14/24 10:15 68 89/46 L 10/14/24 10:00 62 10/14/24 10:00 71 87/46 L 10/14/24 10:00 71 87/46 L 10/14/24 10:00 96.9 F L 71 14 87/46 L 99 10/14/24 10:00 77 90/45 L 10/14/24 09:45 72 91/46 L 10/14/24 09:30 72 92/47 L 10/14/24 09:15 72 90/46 L 10/14/24 09:04 65 15 10/14/24 09:00 69 86/44 L 10/14/24 08:57 70 87/44 L 10/14/24 08:57 72 97 Mechanical Ventilation 10/14/24 08:45 75 96/49 L 10/14/24 08:39 72 18 10/14/24 08:30 72 90/47 L 10/14/24 08:15 74 91/46 L 10/14/24 08:00 66 10/14/24 08:00 97.6 F 71 19 94/48 L 98 10/14/24 08:00 30 10/14/24 08:00 71 19 98 Mechanical Ventilation 10/14/24 08:00 71 94/48 L 10/14/24 08:00 71 94/48 L 10/14/24 08:00 30 10/14/24 08:00 71 94/48 L 10/14/24 07:45 98 F 73 19 91/46 L 97 10/14/24 06:00 71 94/51 L 10/14/24 06:00 71 94/51 L 10/14/24 06:00 71 10/14/24 06:00 71 17 93/51 L 100 10/14/24 04:41 67 98 Mechanical Ventilation 10/14/24 04:00 72 95/53 L 10/14/24 04:00 72 95/53 L 10/14/24 04:00 98.3 F 72 15 95/53 L 99 10/14/24 04:00 71 10/14/24 04:00 30 10/14/24 04:00 72 15 99 Mechanical Ventilation 10/14/24 02:00 70 10/14/24 02:00 70 89/49 L 10/14/24 02:00 70 89/49 L 10/14/24 02:00 70 14 89/49 L 99 10/14/24 01:46 67 16 10/14/24 01:29 73 18 10/14/24 01:29 73 99 Mechanical Ventilation 10/14/24 00:00 76 10/14/24 00:00 98.2 F 72 16 94/51 L 98 10/14/24 00:00 30 10/14/24 00:00 72 16 98 Mechanical Ventilation 10/14/24 00:00 72 95/52 L 10/14/24 00:00 72 95/52 L 10/13/24 22:26 64 98 Mechanical Ventilation 10/13/24 22:00 71 15 97/51 L 98 10/13/24 22:00 71 97/51 L 10/13/24 22:00 71 97/51 L 10/13/24 22:00 71 10/13/24 21:00 66 83/45 L 10/13/24 20:21 76 14 10/13/24 20:11 98.6 F 73 26 H 89/47 L 98 10/13/24 20:02 77 15 10/13/24 20:02 77 100 Mechanical Ventilation 30 10/13/24 20:00 73 10/13/24 20:00 73 92/49 L 10/13/24 20:00 30 10/13/24 20:00 72 16 98 Mechanical Ventilation 30 10/13/24 20:00 73 92/49 L 10/13/24 19:31 71 97/51 L 10/13/24 19:31 71 97/51 L 10/13/24 18:38 61 106/53 L 10/13/24 18:24 60 112/55 L 10/13/24 18:00 63 10/13/24 18:00 65 14 123/63 99 10/13/24 18:00 66 122/62 10/13/24 18:00 66 122/62 10/13/24 17:47 67 124/62 10/13/24 17:46 65 130/64 Intake/Output Intake/Output: Intake & Output 10/11/24 10/12/24 10/13/24 10/14/24 23:59 23:59 23:59 23:59 Intake Total 1580.7 1743.4 1143.2 985.1 Output Total 3000 3800 3000 3500 Balance -1419.3 -2056.6 -1856.8 -2514.9 Meds/Results Medications: Active Medications Generic Name Dose Route Start Last Admin Trade Name Sd PRN Reason Stop Dose Admin Acetaminophen 650 mg 10/08/24 20:49 Acetaminophen 650 Mg Suppository RECTAL Q6H PRN Mild Pain (1-3) or Fever Albuterol/Ipratropium 3 ml 10/09/24 14:00 10/14/24 15:25 Ipratropium 0.5 Mg/Albuterol Sulfate 2.5 Mg Ampul.Neb 3 Ml INHALATION 3 ml Q6HRT CESAR Administration Allopurinol 100 mg 10/09/24 08:00 10/14/24 09:24 Allopurinol 100 Mg Tablet PO 100 mg DAILY@0800 [facility] Administration Apixaban 2.5 mg 10/09/24 09:00 10/11/24 20:01 Apixaban 2.5 Mg Tablet PO 2.5 mg Q12HR CESAR Administration Atorvastatin Calcium 10 mg 10/09/24 09:00 10/14/24 09:24 Atorvastatin 10 Mg Tablet PO 10 mg DAILY CESAR Administration Budesonide 0.5 mg 10/09/24 20:00 10/14/24 08:38 Budesonide Respule Neb 0.5 Mg/2 Ml Amp INHALATION 0.5 mg Q12HRT CESAR Administration Dextrose 12.5 gm 10/08/24 22:06 Dextrose 50% 25 Gm/50 Ml Syringe IV PUSH PRN PRN Hypoglycemia Protocol Glucagon 1 mg 10/08/24 22:06 Glucagon For Inj 1 Mg Vial IM PRN PRN Hypoglycemia Protocol Glucose 15 gm 10/08/24 22:06 Glucose Oral Gel 15 Gm Of Glucse In 37.5 Gm Tube PO PRN PRN Hypoglycemia Protocol Hydrocortisone Sodium Succinate 100 mg 10/09/24 14:30 10/14/24 14:33 Hydrocortisone Sodium Succinate 100 Mg/2 Ml Vial IV PUSH 100 mg Q8HR CESAR Administration Dextrose 1,000 mls @ 100 mls/hr 10/08/24 22:06 Dextrose 5% 1,000 Ml IVPB PRN PRN Hypoglycemia Protocol Ceftriaxone Sodium 2 gm in 100 mls @ 200 mls/hr 10/12/24 11:15 10/14/24 11:06 Rocephin 2 Gm/Ns 100 Ml IVPB Infused DAILY CESAR Infusion Norepinephrine Bitartrate 8 mg in 250 mls @ 15 mls/hr 10/13/24 05:05 10/14/24 12:00 Levophed 8 Mg/D5w 250 Ml IV CONT 8 mcg/min .[id number] CESAR 15 mls/hr Titration Protocol 8 MCG/MIN Albumin Human 50 mls @ 999 mls/hr 10/14/24 06:24 Albutein IVPB 11/13/24 06:23 Q10M PRN HYPOTENSION Insulin Aspart 4 - 8 units 10/11/24 12:00 10/14/24 16:41 Insulin Aspart (*Bkc) 100 Units/Ml SUB-Q 4 units Q4H CESAR Administration Protocol Insulin Glargine 25 units 10/14/24 21:00 Insulin Glargine (*Bkc) 100 Units/Ml SUB-Q HS [facility] Multi-Ingred Cream/Lotion/Oil/Oint 1 applic 10/10/24 09:00 10/14/24 09:38 Mineral Oil/White Petrolatum Ointment EACH EYE 1 applic Q12HR CESAR Administration Mupirocin 1 applic 10/09/24 09:00 10/14/24 09:38 Mupirocin 2% Oint 22 Gm Tube EACH NARE 1 applic Q12HR CESAR Administration Pantoprazole Sodium 40 mg 10/09/24 13:45 10/14/24 09:38 Pantoprazole Sodium Iv 40 Mg Vial IV PUSH 40 mg QAM CESAR Administration Fluticasone/Salmeterol 2 puff 10/09/24 08:00 10/09/24 09:26 Fluticasone/Salmeterol 115-21 Mcg Inhaler 1 Puff INHALATION Not Given Q12HRT CESAR Sevelamer Carbonate 1.6 gm 10/14/24 08:45 10/14/24 16:44 Sevelamer Carbonate 0.8 Gm Oral Powder Packet BY MOUTH 1.6 gm TIDWM [facility]ESAR Administration Sodium Chloride 10 ml 10/09/24 14:00 10/14/24 14:35 Central Line Flush IV PUSH 10 ml Q8HR CESAR Administration Sodium Chloride 20 ml 10/09/24 06:24 Central Line Flush IV PUSH PRN PRN after blood draws Vancomycin HCl 1 each 10/08/24 23:03 Vancomycin For Hemodialysis IVPB 10/14/24 23:59 PRN PRN Vancomycin Protocol Radiology Results: ITS Impressions Pelvis X-Ray 10/08/24 22:22 IMPRESSION: As above. Head CT 10/08/24 23:18 IMPRESSION: No acute intracranial findings. Chest CT 10/08/24 23:27 IMPRESSION: 1. Interstitial thickening in the lower lobes which may indicate pneumonitis. Edema is less likely. 2. Cardiomegaly. 3. Cholelithiasis 4. Splenic cysts unchanged. Abdomen X-Ray 10/13/24 15:22 IMPRESSION: Nasogastric tube in good position and ready for immediate use. Chest X-Ray 10/14/24 06:37 Impression: Probable mild bibasilar pulmonary edema and minimal right pleural effusion. Correlate currently for pneumonia. Support tubes, as above. Labs Labs: Laboratory Tests 10/14/24 06:34 10/14/24 06:34 Calcium 7.9 L Phosphorus 2.9 Magnesium 2.2 Total Bilirubin 1.7 H AST 27 ALT 13 Alkaline Phosphatase 97 Total Protein 7.0 Albumin 3.6
--- NOTE | 2024-10-14 15:09 | P.PNIM_ITS ---
Progress Note: A&P Assessment and Plan (1) Sepsis: Code(s): A41.9 - Sepsis, unspecified organism Status: Acute (2) Influenza: Code(s): J11.1 - Influenza due to unidentified influenza virus with other respiratory manifestations Status: Acute (3) Pneumonia: Code(s): J18.9 - Pneumonia, unspecified organism Status: Acute (4) Altered mental status: Code(s): R41.82 - Altered mental status, unspecified Status: Acute (5) End-stage renal disease on hemodialysis: Code(s): N18.6 - End stage renal disease; Z99.2 - Dependence on renal dialysis Status: Acute (6) Type 2 diabetes mellitus with diabetic neuropathy: Qualifiers: Diabetes mellitus superintendent terminal insulin use: without superintendent terminal use Qualified Code(s): E11.40 - Type 2 diabetes mellitus with diabetic neuropathy, unspecified Code(s): E11.40 - Type 2 diabetes mellitus with diabetic neuropathy, unspecified Status: Chronic Plan The patient presented to the emergency department for evaluation of altered mental status following dialysis as detailed in HPI. Labs, imaging, EKG, and all reports were personally reviewed. He meets sepsis criteria with hypotension, low-grade fever, bandemia, lactic acidosis, and altered mental status in the setting of infection. He remained hypotensive following a 1.5 L normal saline bolus (more fluids were not given due to his end-stage renal disease) and he has been started on vasopressors with a target MAP of at least 65. He tested positive for influenza A and chest x-ray shows findings of possible pneumonia for which he has been started on oseltamivir and azithromycin, ceftriaxone, and vancomycin. MRSA nasal screen pending. Sputum culture ordered. There were no reports of obvious focal deficits on exam in the ED and his altered mental status may very well be related to sepsis, influenza, and hypotension. Brain CT was without acute findings. Initiate sliding scale insulin, Accu-Cheks, and hypoglycemic protocol. He will be due for dialysis on Friday. His medications will be reviewed and resumed as appropriate. Findings and treatment plan were discussed with the patient's . Questions were solicited and answered to satisfaction. The patient's medical management will be taken over by the hospitalist team in a.m. patient presented with hypotension and confusion, patient was intubated and on ventilator, patient is receiving IVF and on pressor, discussed with mortgage loan officer originator patient blood pressure is improving and his off pressors, patient is found to have Influenza A treated with Tamiflu patient's and son are present in the room, on 10/13 patient had ROBERT there is no evidence endocarditis, patient is clinically improving and today discussed with mortgage loan officer originator plan give weaning t rial tomorrow, patient is seen by mortgage loan officer originator and further recommendation to follow. Subjective Date/time seen: 10/14/24 15:09 Interval history: Altered mental status. H&P-Narrative: This is an 84-year-old male with end-stage renal disease on hemodialysis, congestive heart failure, pulmonary hypertension, type 2 diabetes mellitus, atrial fibrillation on anticoagulation, hypertension, chronic anemia, and other comorbidities who presented to the emergency department via EMS for evaluation of altered mental status after dialysis. He was intubated in the emergency department and the following history is obtained from the patient's as well as review of his electronic medical records. He went to dialysis at 05:00 and completed a session. His that time he has reportedly been increasingly confused, mumbling to himself and not making any sense. In the ED his only complaint was that of not feeling well but he did not elaborate. reports that he had a bit of a cough yesterday which she believes was nonproductive. There were no rep orts of fever, cold and flu symptoms, vomiting, or diarrhea. In the ED: Vital signs on arrival include a temperature of 99.8?, blood pressure 72/37, pulse 87, respiratory 22, SpO2 95%. Labs were significant for WBC count of 7.9 with 10 bands noted on manual differential, sodium 136, chloride 92, carbon dioxide 34, BUN 26, creatinine 3.68, lactic acid 2.9, calcium 7.9, total bilirubin 2.1. He tested positive for influenza A. Chest x-ray showed bilateral social pneumonitis versus pulmonary edema. Blood pressure continue to drift down words and he was given a 1500 mL bolus of normal saline without much improvement. The decision was made to put in the central line and start the patient on vasopressors however the patient had difficulties lying still for central line placement and he was sedated and eventually intubated and he is being admitted to the ICU in this setting with hypotension, influenza, pneumonia, and altered mental status. patient presented with hypotension and confusion, patient was intubated and on ventilator, patient is receiving IVF and on pressor, discussed with mortgage loan officer originator patient blood pressure is improving and his off pressors, patient is found to have Influenza A treated with Tamiflu patient's and son are present in the room, on 10/13 patient had ROBERT there is no evidence endocarditis, patient is clinically improving and today discussed with mortgage loan officer originator plan give weaning trial tomorrow, patient is seen by mortgage loan officer originator and further recommendation to follow. Review of Systems Review of Systems: ROS unobtainable: Yes unobtainable due to endotracheal tube Objective Data Vital Signs Vital Signs: Vital Signs - 24 hr 10/13/24 15:55 10/13/24 15:56 10/13/24 16:00 Temperature Pulse Rate 73 73 64 Respiratory Rate 14 Blood Pressure 116/63 116/63 Pulse Oximetry Oxygen Delivery Fraction of Inspired Oxygen 10/13/24 16:00 10/13/24 16:00 10/13/24 16:00 Temperature 36.9 C Pulse Rate 55 L 67 67 Respiratory Rate 14 Blood Pressure 117/60 117/62 117/62 Pulse Oximetry 98 Oxygen Delivery Fraction of Inspired Oxygen 10/13/24 16:00 10/13/24 16:00 10/13/24 16:00 Temperature Pulse Rate 61 68 Respiratory Rate 14 Blood Pressure Pulse Oximetry 96 Oxygen Delivery Mechanical Ventilation Fraction of Inspired Oxygen 30 30 10/13/24 16:15 10/13/24 17:46 10/13/24 17:47 Temperature Pulse Rate 60 65 67 Respiratory Rate Blood Pressure 130/64 124/62 Pulse Oximetry 100 Oxygen Delivery Mechanical Ventilation Fraction of Inspired Oxygen 30 10/13/24 18:00 10/13/24 18:00 10/13/24 18:00 Temperature Pulse Rate 66 66 65 Respiratory Rate 14 Blood Pressure 122/62 122/62 123/63 Pulse Oximetry 99 Oxygen Delivery Fraction of Inspired Oxygen 10/13/24 18:00 10/13/24 18:24 10/13/24 18:38 Temperature Pulse Rate 63 60 61 Respiratory Rate Blood Pressure 112/55 L 106/53 L Pulse Oximetry Oxygen Delivery Fraction of Inspired Oxygen 10/13/24 19:31 10/13/24 19:31 10/13/24 20:00 Temperature Pulse Rate 71 71 73 Respiratory Rate Blood Pressure 97/51 L 97/51 L 92/49 L Pulse Oximetry Oxygen Delivery Fraction of Inspired Oxygen 10/13/24 20:00 10/13/24 20:00 10/13/24 20:00 Temperature Pulse Rate 72 73 Respiratory Rate 16 Blood Pressure 92/49 L Pulse Oximetry 98 Oxygen Delivery Mechanical Ventilation Fraction of Inspired Oxygen 30 30 10/13/24 20:00 10/13/24 20:02 10/13/24 20:02 Temperature Pulse Rate 73 77 77 Respiratory Rate 15 Blood Pressure Pulse Oximetry 100 Oxygen Delivery Mechanical Ventilation Fraction of Inspired Oxygen 30 10/13/24 20:11 10/13/24 20:21 10/13/24 21:00 Temperature 37.0 C Pulse Rate 73 76 66 Respiratory Rate 26 H 14 Blood Pressure 89/47 L 83/45 L Pulse Oximetry 98 Oxygen Delivery Fraction of Inspired Oxygen 10/13/24 22:00 10/13/24 22:00 10/13/24 22:00 Temperature Pulse Rate 71 71 71 Respiratory Rate Blood Pressure 97/51 L 97/51 L Pulse Oximetry Oxygen Delivery Fraction of Inspired Oxygen 10/13/24 22:00 10/13/24 22:26 10/14/24 00:00 Temperature Pulse Rate 71 64 72 Respiratory Rate 15 Blood Pressure 97/51 L 95/52 L Pulse Oximetry 98 98 Oxygen Delivery Mechanical Ventilation Fraction of Inspired Oxygen 30 10/14/24 00:00 10/14/24 00:00 10/14/24 00:00 Temperature Pulse Rate 72 72 Respiratory Rate 16 Blood Pressure 95/52 L Pulse Oximetry 98 Oxygen Delivery Mechanical Ventilation Fraction of Inspired Oxygen 30 30 10/14/24 00:00 10/14/24 00:00 10/14/24 01:29 Temperature 36.8 C Pulse Rate 72 76 73 Respiratory Rate 16 Blood Pressure 94/51 L Pulse Oximetry 98 99 Oxygen Delivery Mechanical Ventilation Fraction of Inspired Oxygen 30 10/14/24 01:29 10/14/24 01:46 10/14/24 02:00 Temperature Pulse Rate 73 67 70 Respiratory Rate 18 16 14 Blood Pressure 89/49 L Pulse Oximetry 99 Oxygen Delivery Fraction of Inspired Oxygen 10/14/24 02:00 10/14/24 02:00 10/14/24 02:00 Temperature Pulse Rate 70 70 70 Respiratory Rate Blood Pressure 89/49 L 89/49 L Pulse Oximetry Oxygen Delivery Fraction of Inspired Oxygen 10/14/24 04:00 10/14/24 04:00 10/14/24 04:00 Temperature Pulse Rate 72 71 Respiratory Rate 15 Blood Pressure Pulse Oximetry 99 Oxygen Delivery Mechanical Ventilation Fraction of Inspired Oxygen 30 30 10/14/24 04:00 10/14/24 04:00 10/14/24 04:00 Temperature 36.8 C Pulse Rate 72 72 72 Respiratory Rate 15 Blood Pressure 95/53 L 95/53 L 95/53 L Pulse Oximetry 99 Oxygen Delivery Fraction of Inspired Oxygen 10/14/24 04:41 10/14/24 06:00 10/14/24 06:00 Temperature Pulse Rate 67 71 71 Respiratory Rate 17 Blood Pressure 93/51 L Pulse Oximetry 98 100 Oxygen Delivery Mechanical Ventilation Fraction of Inspired Oxygen 30 10/14/24 06:00 10/14/24 06:00 10/14/24 07:45 Temperature 36.6 C Pulse Rate 71 71 73 Respiratory Rate 19 Blood Pressure 94/51 L 94/51 L 91/46 L Pulse Oximetry 97 Oxygen Delivery Fraction of Inspired Oxygen 10/14/24 08:00 10/14/24 08:00 10/14/24 08:00 Temperature Pulse Rate 71 71 Respiratory Rate Blood Pressure 94/48 L 94/48 L Pulse Oximetry Oxygen Delivery Fraction of Inspired Oxygen 30 10/14/24 08:00 10/14/24 08:00 10/14/24 08:00 Temperature Pulse Rate 71 71 Respiratory Rate 19 Blood Pressure 94/48 L Pulse Oximetry 98 Oxygen Delivery Mechanical Ventilation Fraction of Inspired Oxygen 30 30 10/14/24 08:00 10/14/24 08:00 10/14/24 08:15 Temperature 36.4 C Pulse Rate 71 66 74 Respiratory Rate 19 Blood Pressure 94/48 L 91/46 L Pulse Oximetry 98 Oxygen Delivery Fraction of Inspired Oxygen 10/14/24 08:30 10/14/24 08:39 10/14/24 08:45 Temperature Pulse Rate 72 72 75 Respiratory Rate 18 Blood Pressure 90/47 L 96/49 L Pulse Oximetry Oxygen Delivery Fraction of Inspired Oxygen 10/14/24 08:57 10/14/24 08:57 10/14/24 09:00 Temperature Pulse Rate 72 70 69 Respiratory Rate Blood Pressure 87/44 L 86/44 L Pulse Oximetry 97 Oxygen Delivery Mechanical Ventilation Fraction of Inspired Oxygen 30 10/14/24 09:04 10/14/24 09:15 10/14/24 09:30 Temperature Pulse Rate 65 72 72 Respiratory Rate 15 Blood Pressure 90/46 L 92/47 L Pulse Oximetry Oxygen Delivery Fraction of Inspired Oxygen 10/14/24 09:45 10/14/24 10:00 10/14/24 10:00 Temperature 36.1 C L Pulse Rate 72 77 71 Respiratory Rate 14 Blood Pressure 91/46 L 90/45 L 87/46 L Pulse Oximetry 99 Oxygen Delivery Fraction of Inspired Oxygen 10/14/24 10:00 10/14/24 10:00 10/14/24 10:00 Temperature Pulse Rate 71 71 62 Respiratory Rate Blood Pressure 87/46 L 87/46 L Pulse Oximetry Oxygen Delivery Fraction of Inspired Oxygen 10/14/24 10:15 10/14/24 10:30 10/14/24 10:45 Temperature Pulse Rate 68 70 78 Respiratory Rate Blood Pressure 89/46 L 88/45 L 93/48 L Pulse Oximetry Oxygen Delivery Fraction of Inspired Oxygen 10/14/24 10:56 10/14/24 11:00 10/14/24 11:08 Temperature 36.1 C L Pulse Rate 74 69 73 Respiratory Rate 12 Blood Pressure 91/47 L 100/50 L Pulse Oximetry 100 99 Oxygen Delivery Mechanical Ventilation Fraction of Inspired Oxygen 30 10/14/24 12:00 10/14/24 12:00 10/14/24 12:00 Temperature 36.3 C L Pulse Rate 72 72 72 Respiratory Rate 14 Blood Pressure 101/49 L 101/49 L 101/49 L Pulse Oximetry 99 Oxygen Delivery Fraction of Inspired Oxygen 10/14/24 12:34 10/14/24 12:41 10/14/24 14:00 Temperature Pulse Rate 72 70 79 Respiratory Rate 15 Blood Pressure 88/42 L 88/42 L 103/51 L Pulse Oximetry 97 Oxygen Delivery Fraction of Inspired Oxygen 10/14/24 14:00 10/14/24 14:43 Temperature Pulse Rate 79 74 Respiratory Rate Blood Pressure 103/51 L 92/44 L Pulse Oximetry Oxygen Delivery Fraction of Inspired Oxygen Intake/Output Intake/Output: Intake & Output 10/11/24 10/12/24 10/13/24 10/14/24 23:59 23:59 23:59 23:59 Intake Total 1580.7 1743.4 1143.2 935.3 Output Total 3000 3800 3000 3500 Balance -1419.3 -2056.6 -1856.8 -2564.7 Meds/Results Medications: Active Medications Generic Name Dose Route Start Last Admin Trade Name Freq PRN Reason Stop Dose Admin Acetaminophen 650 mg 10/08/24 20:49 Acetaminophen 650 Mg Suppository RECTAL Q6H PRN Mild Pain (1-3) or Fever Albuterol/Ipratropium 3 ml 10/09/24 14:00 10/14/24 08:38 Ipratropium 0.5 Mg/Albuterol Sulfate 2.5 Mg Ampul.Neb 3 Ml INHALATION 3 ml Q6HRT CESAR Administration Allopurinol 100 mg 10/09/24 08:00 10/14/24 09:24 Allopurinol 100 Mg Tablet PO 100 mg DAILY@0800 CESAR Administration Apixaban 2.5 mg 10/09/24 09:00 10/11/24 20:01 Apixaban 2.5 Mg Tablet PO 2.5 mg Q12HR CESAR Administration Atorvastatin Calcium 10 mg 10/09/24 09:00 10/14/24 09:24 Atorvastatin 10 Mg Tablet PO 10 mg DAILY CESAR Administration Budesonide 0.5 mg 10/09/24 20:00 10/14/24 08:38 Budesonide Respule Neb 0.5 Mg/2 Ml Amp INHALATION 0.5 mg Q12HRT CESAR Administration Dextrose 12.5 gm 10/08/24 22:06 Dextrose 50% 25 Gm/50 Ml Syringe IV PUSH PRN PRN Hypoglycemia Protocol Glucagon 1 mg 10/08/24 22:06 Glucagon For Inj 1 Mg Vial IM PRN PRN Hypoglycemia Protocol Glucose 15 gm 10/08/24 22:06 Glucose Oral Gel 15 Gm Of Glucse In 37.5 Gm Tube PO PRN PRN Hypoglycemia Protocol Hydrocortisone Sodium Succinate 100 mg 10/09/24 14:30 10/14/24 14:33 Hydrocortisone Sodium Succinate 100 Mg/2 Ml Vial IV PUSH 100 mg Q8HR CESAR Administration Dextrose 1,000 mls @ 100 mls/hr 10/08/24 22:06 Dextrose 5% 1,000 Ml IVPB PRN PRN Hypoglycemia Protocol Vasopressin 100 units/ 100 mls @ 0 mls/hr 10/08/24 22:45 10/14/24 14:43 Dextrose IV CONT Infused .Q0M CESAR Titration Protocol Ceftriaxone Sodium 2 gm in 100 mls @ 200 mls/hr 10/12/24 11:15 10/14/24 11:06 Rocephin 2 Gm/Ns 100 Ml IVPB Infused DAILY CESAR Infusion Norepinephrine Bitartrate 8 mg in 250 mls @ 15 mls/hr 10/13/24 05:05 10/14/24 12:41 Levophed 8 Mg/D5w 250 Ml IV CONT 8 mcg/min .[id number] CESAR 15 mls/hr Administration Protocol 8 MCG/MIN Albumin Human 50 mls @ 999 mls/hr 10/14/24 06:24 Albutein IVPB 11/13/24 06:23 Q10M PRN HYPOTENSION Insulin Aspart 4 - 8 units 10/11/24 12:00 10/14/24 12:03 Insulin Aspart (*Bkc) 100 Units/Ml SUB-Q Not Given Q4H CESAR Protocol Insulin Glargine 25 units 10/14/24 21:00 Insulin Glargine (*Bkc) 100 Units/Ml SUB-Q HS CESAR Multi-Ingred Cream/Lotion/Oil/Oint 1 applic 10/10/24 09:00 10/14/24 09:38 Mineral Oil/White Petrolatum Ointment EACH EYE 1 applic Q12HR CESAR Administration Mupirocin 1 applic 10/09/24 09:00 10/14/24 09:38 Mupirocin 2% Oint 22 Gm Tube EACH NARE 1 applic Q12HR CESAR Administration Pantoprazole Sodium 40 mg 10/09/24 13:45 10/14/24 09:38 Pantoprazole Sodium Iv 40 Mg Vial IV PUSH 40 mg QAM CESAR Administration Fluticasone/Salmeterol 2 puff 10/09/24 08:00 10/09/24 09:26 Fluticasone/Salmeterol 115-21 Mcg Inhaler 1 Puff INHALATION Not Given Q12HRT CEASR Sevelamer Carbonate 1.6 gm 10/14/24 08:45 10/14/24 12:05 Sevelamer Carbonate 0.8 Gm Oral Powder Packet BY MOUTH 1.6 gm TIDWM CESAR Administration Sodium Chloride 10 ml 10/09/24 14:00 10/14/24 14:35 Central Line Flush IV PUSH 10 ml Q8HR CESAR Administration Sodium Chloride 20 ml 10/09/24 06:24 Central Line Flush IV PUSH PRN PRN after blood draws Vancomycin HCl 1 each 10/08/24 23:03 Vancomycin For Hemodialysis IVPB 10/14/24 23:59 PRN PRN Vancomycin Protocol Radiology Results: ITS Impressions Pelvis X-Ray 10/08/24 22:22 IMPRESSION: As above. Head CT 10/08/24 23:18 IMPRESSION: No acute intracranial findings. Chest CT 10/08/24 23:27 IMPRESSION: 1. Interstitial thickening in the lower lobes which may indicate pneumonitis. Edema is less likely. 2. Cardiomegaly. 3. Cholelithiasis 4. Splenic cysts unchanged. Abdomen X-Ray 10/13/24 15:22 IMPRESSION: Nasogastric tube in good position and ready for immediate use. Chest X-Ray 10/14/24 06:37 Impression: Probable mild bibasilar pulmonary edema and minimal right pleural effusion. Correlate currently for pneumonia. Support tubes, as above. Labs Labs: Laboratory Results - last 24 hr 10/13/24 10/13/24 10/14/24 15:43 20:21 01:22 WBC RBC Hgb Hct MCV MCH MCHC RDW Plt Count MPV Immature Gran % (Auto) Neut % (Auto) Lymph % (Auto) Sharkey % (Auto) Eos % (Auto) Baso % (Auto) Lymph # (Auto) Sharkey # (Auto) Eos # (Auto) Baso # (Auto) Abs Immat Gran (auto) Absolute Neuts (auto) Absolute Nucleated RBC Nucleated RBC % % Immature Plt Fraction Puncture Site ABG pH ABG pCO2 ABG pO2 ABG PO2/FiO2 Ratio ABG HCO3 ABG O2 Saturation ABG O2 Content ABG Base Excess A-a Gradient Oxyhemoglobin Carboxyhemoglobin Methemoglobin Reduced Hemoglobin Total Hemoglobin O2 Delivery Device O2 Liters/Min Minute Volume Vent Rate Vent Mode FiO2 Tidal Volume PEEP Peak Inspir Pressure Pressure Support Sodium Potassium Chloride Carbon Dioxide Anion Gap BUN Creatinine Estim Creat Clear Calc Estimated GFR Glucose POC Capillary Glucose 130 H 189 H 216 H Calcium Phosphorus Magnesium Total Bilirubin AST ALT Alkaline Phosphatase Total Protein Albumin 10/14/24 10/14/24 10/14/24 03:51 04:35 06:34 WBC 9.5 RBC 3.88 L Hgb 12.2 L Hct 37.6 L MCV 96.9 MCH 31.4 MCHC 32.4 RDW 16.2 H Plt Count 65 L MPV 11.5 H Immature Gran % (Auto) 0.7 H Neut % (Auto) 91.7 H Lymph % (Auto) 2.2 L Sharkey % (Auto) 5.4 Eos % (Auto) 0.0 Baso % (Auto) 0.0 L Lymph # (Auto) 0.21 L Sharkey # (Auto) 0.5 Eos # (Auto) 0.0 Baso # (Auto) 0.0 Abs Immat Gran (auto) 0.07 H Absolute Neuts (auto) 8.7 H Absolute Nucleated RBC 0.000 Nucleated RBC % 0.0 % Immature Plt Fraction 6.1 Puncture Site Artline ABG pH 7.382 ABG pCO2 41.5 ABG pO2 83.7 ABG PO2/FiO2 Ratio 2.79 ABG HCO3 24.1 ABG O2 Saturation 96.1 ABG O2 Content 17.6 ABG Base Excess -1.0 A-a Gradient 81.4 Oxyhemoglobin 94.4 Carboxyhemoglobin 1.2 Methemoglobin 0.3 Reduced Hemoglobin 4.1 Total Hemoglobin 13.2 O2 Delivery Device Ventilator O2 Liters/Min Not Reportable Minute Volume Not Reportable Vent Rate 14 Vent Mode Cmv FiO2 30 Tidal Volume 450 PEEP 5 Peak Inspir Pressure Not Reportable Pressure Support Not Reportable Sodium 136 L Potassium 4.0 Chloride 96 L Carbon Dioxide 25 Anion Gap 15 H BUN 46 H D Creatinine 4.42 H Estim Creat Clear Calc 13 Estimated GFR 13 L Glucose 176 H POC Capillary Glucose 238 H Calcium 7.9 L Phosphorus 2.9 Magnesium 2.2 Total Bilirubin 1.7 H AST 27 ALT 13 Alkaline Phosphatase 97 Total Protein 7.0 Albumin 3.6 10/14/24 10/14/24 09:30 12:02 WBC RBC Hgb Hct MCV MCH MCHC RDW Plt Count MPV Immature Gran % (Auto) Neut % (Auto) Lymph % (Auto) Sharkey % (Auto) Eos % (Auto) Baso % (Auto) Lymph # (Auto) Sharkey # (Auto) Eos # (Auto) Baso # (Auto) Abs Immat Gran (auto) Absolute Neuts (auto) Absolute Nucleated RBC Nucleated RBC % % Immature Plt Fraction Puncture Site ABG pH ABG pCO2 ABG pO2 ABG PO2/FiO2 Ratio ABG HCO3 ABG O2 Saturation ABG O2 Content ABG Base Excess A-a Gradient Oxyhemoglobin Carboxyhemoglobin Methemoglobin Reduced Hemoglobin Total Hemoglobin O2 Delivery Device O2 Liters/Min Minute Volume Vent Rate Vent Mode FiO2 Tidal Volume PEEP Peak Inspir Pressure Pressure Support Sodium Potassium Chloride Carbon Dioxide Anion Gap BUN Creatinine Estim Creat Clear Calc Estimated GFR Glucose POC Capillary Glucose 97 195 H Calcium Phosphorus Magnesium Total Bilirubin AST ALT Alkaline Phosphatase Total Protein Albumin Quality VTE Prophylaxis VTE prophylaxis: mechanical ordered
[2024-10-14 16:28] LABS: Mycoplasma IgM Antibody Titer 116 U/mL
[2024-10-14 16:42] LABS: Glucose Point of Care 246 mg/dl (65-105)
[2024-10-14] MEDS: INSULIN GLARGINE (*BKC) 100 UNITS/ML 25 UNITS SUB-Q (20:47)
[2024-10-14 20:51] LABS: Glucose Point of Care 244 mg/dl (65-105)
[2024-10-14 23:34] LABS: Glucose Point of Care 240 mg/dl (65-105)
[2024-10-15] VITALS (54 sets, daily range): BP systolic 91–120; BP diastolic 45–73; PULSE 67–89; RESP 17–22; TEMP 36.6–37.2; O2SAT 96–99
[2024-10-15] MEDS: NOREPINEPHRINE 8 MG/D5W 250 ML 8 MG/250 ML BAG 18.75 MG IV CONT ×2 (01:55→14:19)
[2024-10-15] MEDS: IPRATROPIUM 0.5 MG/ALBUTEROL SULFATE 2.5 MG AMPUL.NEB 3 ML INHALATION ×4 (02:22→20:55)
[2024-10-15 04:48] LABS: Glucose Point of Care 206 mg/dl (65-105)
[2024-10-15] MEDS: INSULIN ASPART (*BKC) 100 UNITS/ML SUB-Q ×5 (04:50→21:39)
[2024-10-15 05:03] LABS: Hematocrit 41.3 % (42.0-52.0); Hemoglobin 13.4 g/dL (14.0-18.0); Mean Corpuscular HGB Conc 32.4 g/dl (32-36); Mean Corpuscular Volume 95.6 fl (80-100); Mean Platelet Volume 11.9 fl (7.4-10.4); Platelet Count Result 119 k/mm3 (150-375); Red Blood Count 4.32 M/mm3 (4.6-6.20); Red Cell Distribution Width 16.6 % (11.5-14.5); White Blood Count 14.1 K/mm3 (4.5-10.0)
[2024-10-15] MEDS: CENTRAL LINE FLUSH 10 ML IV PUSH ×3 (05:04→22:05)
[2024-10-15] MEDS: HYDROCORTISONE SODIUM SUCCINATE 100 MG/2 ML VIAL IV PUSH ×3 (05:04→21:40)
[2024-10-15 05:13] LABS: Alveolar/Arterial O2 Gradient 87.6 mmHg; Base Excess ABG -3.1 mEq/l (+/-2.0); Fractional Inspired Oxygen 30 %; HCO3 ABG 20.1 mEq/l (22.0-26.0); Oxygen Content ABG 18.6 %vol (16.0-22.0); Oxygen Saturation ABG 97.2 % (95.0-100.0); Oxyhemoglobin 95.5 % THb (90.0-100.0); PO2 ABG 89.9 mmHg (80.0-100.0); Total Hemoglobin 13.8 g/dL (12.0-18.0)
[2024-10-15 05:13] LABS: Anion Gap 14 mmol/L (4-12); Blood Urea Nitrogen 72 mg/dL (9-20); Calcium 8.1 mg/dL (8.4-10.2); Carbon Dioxide 25 mmol/L (22-30); Chloride 96 mmol/L (98-107); Estimated CRCL calculation 11 ml/min; Estimated Glomerular Filt Rate 11; Glucose 218 mg/dL (65-110); Magnesium 2.2 mg/dL (1.6-2.3); Phosphorus 2.7 mg/dL (2.5-4.5); Potassium 4.4 mmol/L (3.4-5.0); Sodium 135 mmol/L (137-145)
[2024-10-15 05:15] LABS: Arterial Blood Gas PEEP 5 cmH2O; Arterial Blood Gas Vent Mode CMV; Arterial Blood Gas Ventilator rate 14 /MIN; Device VENTILATOR; Modified Allen's Test Pass; Site Drawn ARTLINE
[2024-10-15 05:16] LABS: Arterial Blood Gas Tidal Volume 450 ml
[2024-10-15] MEDS: BUDESONIDE RESPULE NEB 0.5 MG/2 ML AMP INHALATION ×2 (08:17→20:55)
[2024-10-15] MEDS: PANTOPRAZOLE SODIUM IV 40 MG VIAL IV PUSH (08:59)
[2024-10-15] MEDS: SEVELAMER CARBONATE 0.8 GM ORAL POWDER PACKET 1.6 GM BY MOUTH ×3 (08:59→17:42)
[2024-10-15] MEDS: ATORVASTATIN 10 MG TABLET PO (08:59)
[2024-10-15] MEDS: allopurinoL 100 MG TABLET PO (08:59)
[2024-10-15] MEDS: cefTRIAXone 2 GM/NS 100 ML 2 GM/100 ML BAG IVPB (09:00)
[2024-10-15] MEDS: MINERAL OIL/WHITE PETROLATUM OINTMENT 1 APPLIC EACH EYE ×2 (09:01→21:39)
[2024-10-15] MEDS: MUPIROCIN 2% OINT 22 GM TUBE 1 APPLIC EACH NARE ×2 (09:01→21:39)
[2024-10-15 09:40] LABS: Glucose Point of Care 238 mg/dl (65-105)
--- NOTE | 2024-10-15 09:40 | P.PNINT_ITS ---
Progress Note: A&P Assessment and Plan (1) Respiratory failure: Code(s): J96.90 - Respiratory failure, unspecified, unspecified whether with hypoxia or hypercapnia Status: Acute Assessment and Plan: Acute respiratory failure likely related to pneumonia, altered mental status, airway protection 10/08: Intubated -currently on CMV mode of ventilation, peep of 5, 30% FiO2 - continue bronchodilators and Pulmicort -chest x-ray reviewed, ventilator adjusted -10/13: off sedation -10/15: Placed patient on pressure support ventilation 8/5 and 30% FiO2, patient to be dialyzed today hopefully can extubate him after that (2) Septic shock: Code(s): A41.9 - Sepsis, unspecified organism; R65.21 - Severe sepsis with septic shock Status: Acute Assessment and Plan: Patient presented with altered mental status, hypotension, lactic acidosis -septic shock likely related to bacteremia, bilateral pneumonia along with influenza -continue ceftriaxone (10/08) -status post azithromycin and vancomycin -10/08: Blood cultures growing strep mitis -10/10 repeat set of blood culture sent and negative till now -TTE and ROBERT are negative for evidence of valve vegetations -patient did receive 1500 mL in IV fluids on had upon admission -status post albumin 25% q.6 hours x4 doses for intravascular volume expansion -patient remains on Levophed but off of epinephrine and vasopressin, maintain MAP > greater than 65 mmHg or SBP greater than 100 mmHg for adequate end organ perfusion -continue hydrocortisone (3) Bacteremia: Code(s): R78.81 - Bacteremia Status: Acute Assessment and Plan: 10/08: Blood cultures growing strep mitis group 10/10 repeat set of blood culture sent and negative till now -continue antibiotics as above TTE as below ROBERT negative for evidence of vegetation (4) Influenza A: Code(s): J10.1 - Influenza due to other identified influenza virus with other respiratory manifestations Status: Acute Assessment and Plan: Completed a course of renally dosed Tamiflu (5) Pneumonia: Code(s): J18.9 - Pneumonia, unspecified organism Status: Acute Assessment and Plan: Chest x-ray showed pneumonia, CT chest showed pneumonitis, -continue antibiotics as above (6) Altered mental status: Code(s): R41.82 - Altered mental status, unspecified Status: Acute Assessment and Plan: Currently intubated and sedated Head CT was negative for any acute changes at the time presentation (7) End-stage renal disease on hemodialysis: Code(s): N18.6 - End stage renal disease; Z99.2 - Dependence on renal dialysis Status: Acute Assessment and Plan: End-stage renal disease on dialysis (M, W, F) -dialysis per Nephrology. 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 Diabetes mellitus type: type 2 Qualified Code(s): E11.22 - Type 2 diabetes mellitus with diabetic chronic kidney disease; N18.6 - End stage renal disease; Z99.2 - Dependence on renal dialysis Code(s): E11.9 - Type 2 diabetes mellitus without complications Status: Chronic Assessment and Plan: Continue current sliding scale and Lantus dose Plan DVT prophylaxis: SCDs, Eliquis is on hold secondary to thrombocytopenia Stress ulcer prophylaxis: Protonix Nutrition: Tube feeds Code Status: Full code Critical Care Time Spent: 33 minutes Due to a high probability of clinically significant, life threatening deterioration, the patient required my highest level of preparedness to intervene emergently and I personally spent this critical care time directly and personally managing the patient. This critical care time included obtaining a history; examining the patient; pulse oximetry; ordering and review of studies; arranging urgent treatment with development of a management plan; evaluation of patient's response to treatment; frequent reassessment; and discussions with other providers. It was exclusive of separately billable procedures and treating other patients and teaching time. Please see Assessment and Plan section and the rest of the note for further information on patient assessment and treatment This dictation may have been done utilizing a voice recognition system. Attempts have been made to correct errors. However, there may be uncorrected grammatical, spelling, and recognitions errors present. Subjective Date/time seen: 10/15/24 09:40 Interval history: Reason for consult: Altered mental status, generalized weakness, hypotension, shock, acute respiratory failure, Gram-positive cocci in chains bacteremia, influenza A positive, MRSA screen positive 10/08: Intubated 10/15/2024: Patient seen and examined in the ICU, remains on CMV mode of tami tilation, peep of 5, 30% FiO2. Patient has been off all sedation since 10/13/2024: Patient does open his eyes and follows simple commands in all extremities, nods to questions, denies any pain at this time. Patient had hemodialysis yesterday with 3500 mL in fluid removal. Currently afebrile. WBC count has increased. Platelets also improved. End-stage renal disease on hemodialysis, anuric . Review of Systems Review of Systems: ROS unobtainable: Yes unobtainable due to endotracheal tube , unobtainable due to medical condition and unobtainable due to mental status Exam Narrative: General: Patient is intubated on mechanical ventilation, in no acute distress HEENT:? Pupils equal and reactive bilaterally Neck:? Supple Respiratory:? Coarse breath sounds bilaterally, decreased at bases, no wheezing, adequate air entry Cardiac:? Irregularly irregular, regular rate Abdomen:? Soft, nontender, nondistended, protuberant, hypoactive bowel sounds Extremities:? Bilateral lower extremity edema pitting in nature, palpable pedal pulses Neuro:? Patient is intubated, off sedation since 10/13, more awake this morning, opens his eyes, nods to questions, follows simple commands in all extremities Skin:? Skin is dry and flaky Psych:? Unable to assess at this time Objective Data Vital Signs Vital Signs: Vital Signs - 24 hr 10/14/24 09:45 10/14/24 10:00 10/14/24 10:00 Temperature 96.9 F L Pulse Rate 72 77 71 Respiratory Rate 14 Blood Pressure 91/46 L 90/45 L 87/46 L Pulse Oximetry 99 Oxygen Delivery Fraction of Inspired Oxygen 10/14/24 10:00 10/14/24 10:00 10/14/24 10:00 Temperature Pulse Rate 71 71 62 Respiratory Rate Blood Pressure 87/46 L 87/46 L Pulse Oximetry Oxygen Delivery Fraction of Inspired Oxygen 10/14/24 10:15 10/14/24 10:30 10/14/24 10:45 Temperature Pulse Rate 68 70 78 Respiratory Rate Blood Pressure 89/46 L 88/45 L 93/48 L Pulse Oximetry Oxygen Delivery Fraction of Inspired Oxygen 10/14/24 10:56 10/14/24 11:00 10/14/24 11:08 Temperature 96.9 F L Pulse Rate 74 69 73 Respiratory Rate 12 Blood Pressure 91/47 L 100/50 L Pulse Oximetry 100 99 Oxygen Delivery Mechanical Ventilation Fraction of Inspired Oxygen 30 10/14/24 12:00 10/14/24 12:00 10/14/24 12:00 Temperature 97.3 F L Pulse Rate 72 72 72 Respiratory Rate 14 Blood Pressure 101/49 L 101/49 L 101/49 L Pulse Oximetry 99 Oxygen Delivery Fraction of Inspired Oxygen 10/14/24 12:00 10/14/24 12:00 10/14/24 12:00 Temperature Pulse Rate 72 74 Respiratory Rate 14 Blood Pressure Pulse Oximetry 99 Oxygen Delivery Mechanical Ventilation Fraction of Inspired Oxygen 30 30 10/14/24 12:34 10/14/24 12:41 10/14/24 14:00 Temperature Pulse Rate 72 70 79 Respiratory Rate 15 Blood Pressure 88/42 L 88/42 L 103/51 L Pulse Oximetry 97 Oxygen Delivery Fraction of Inspired Oxygen 10/14/24 14:00 10/14/24 14:00 10/14/24 14:00 Temperature Pulse Rate 79 79 79 Respiratory Rate Blood Pressure 103/51 L 103/51 L Pulse Oximetry Oxygen Delivery Fraction of Inspired Oxygen 10/14/24 14:43 10/14/24 15:39 10/14/24 15:44 Temperature Pulse Rate 74 76 82 Respiratory Rate 18 Blood Pressure 92/44 L Pulse Oximetry 96 Oxygen Delivery Mechanical Ventilation Fraction of Inspired Oxygen 30 10/14/24 16:00 10/14/24 16:00 10/14/24 16:00 Temperature 99.4 F Pulse Rate 76 76 Respiratory Rate 17 17 Blood Pressure 91/44 L Pulse Oximetry 97 97 Oxygen Delivery Mechanical Ventilation Fraction of Inspired Oxygen 30 30 10/14/24 16:00 10/14/24 16:00 10/14/24 17:15 Temperature Pulse Rate 76 71 80 Respiratory Rate Blood Pressure 91/44 L Pulse Oximetry 97 Oxygen Delivery Mechanical Ventilation Fraction of Inspired Oxygen 30 10/14/24 18:00 10/14/24 18:00 10/14/24 18:01 Temperature Pulse Rate 83 83 83 Respiratory Rate 19 Blood Pressure 91/48 L 91/48 L Pulse Oximetry 97 Oxygen Delivery Fraction of Inspired Oxygen 10/14/24 18:48 10/14/24 18:58 10/14/24 20:00 Temperature Pulse Rate 77 80 79 Respiratory Rate Blood Pressure 86/46 L 92/51 L 96/51 L Pulse Oximetry Oxygen Delivery Fraction of Inspired Oxygen 10/14/24 20:00 10/14/24 20:00 10/14/24 20:00 Temperature 98.9 F Pulse Rate 78 78 Respiratory Rate 20 20 Blood Pressure 96/51 L Pulse Oximetry 97 97 Oxygen Delivery Mechanical Ventilation Fraction of Inspired Oxygen 30 30 10/14/24 20:00 10/14/24 20:31 10/14/24 20:38 Temperature Pulse Rate 78 73 83 Respiratory Rate 18 Blood Pressure Pulse Oximetry 97 Oxygen Delivery Mechanical Ventilation Fraction of Inspired Oxygen 30 10/14/24 20:41 10/14/24 22:00 10/14/24 22:00 Temperature Pulse Rate 73 78 78 Respiratory Rate 18 20 Blood Pressure 98/52 L 98/52 L Pulse Oximetry 97 Oxygen Delivery Fraction of Inspired Oxygen 10/14/24 22:00 10/14/24 22:58 10/15/24 00:00 Temperature Pulse Rate 78 82 77 Respiratory Rate Blood Pressure 96/50 L Pulse Oximetry 95 Oxygen Delivery Mechanical Ventilation Fraction of Inspired Oxygen 30 10/15/24 00:00 10/15/24 00:00 10/15/24 00:00 Temperature 98.3 F Pulse Rate 77 77 Respiratory Rate 17 17 Blood Pressure 96/51 L Pulse Oximetry 97 96 Oxygen Delivery Mechanical Ventilation Fraction of Inspired Oxygen 30 30 10/15/24 00:00 10/15/24 01:55 10/15/24 01:55 Temperature Pulse Rate 85 70 70 Respiratory Rate Blood Pressure 91/49 L 91/49 L Pulse Oximetry Oxygen Delivery Fraction of Inspired Oxygen 10/15/24 02:00 10/15/24 02:00 10/15/24 02:00 Temperature Pulse Rate 78 78 78 Respiratory Rate 19 Blood Pressure 92/50 L 92/50 L Pulse Oximetry 97 Oxygen Delivery Fraction of Inspired Oxygen 10/15/24 02:27 10/15/24 02:31 10/15/24 02:35 Temperature Pulse Rate 79 74 75 Respiratory Rate 18 18 Blood Pressure Pulse Oximetry 97 Oxygen Delivery Mechanical Ventilation Fraction of Inspired Oxygen 30 10/15/24 04:00 10/15/24 04:00 10/15/24 04:00 Temperature 97.8 F Pulse Rate 75 75 Respiratory Rate 17 Blood Pressure 94/50 L Pulse Oximetry 98 Oxygen Delivery Fraction of Inspired Oxygen 30 10/15/24 04:00 10/15/24 04:00 10/15/24 05:17 Temperature Pulse Rate 75 77 74 Respiratory Rate 17 Blood Pressure 94/50 L Pulse Oximetry 97 97 Oxygen Delivery Mechanical Ventilation Mechanical Ventilation Fraction of Inspired Oxygen 30 30 10/15/24 06:00 10/15/24 06:00 10/15/24 06:00 Temperature 98.3 F Pulse Rate 74 74 74 Respiratory Rate 20 Blood Pressure 97/50 L 97/50 L Pulse Oximetry 97 Oxygen Delivery Fraction of Inspired Oxygen 10/15/24 08:17 10/15/24 08:19 10/15/24 08:32 Temperature Pulse Rate 71 74 72 Respiratory Rate 20 20 Blood Pressure Pulse Oximetry 97 Oxygen Delivery Mechanical Ventilation Fraction of Inspired Oxygen 30 10/15/24 08:50 Temperature Pulse Rate 77 Respiratory Rate Blood Pressure Pulse Oximetry 98 Oxygen Delivery Mechanical Ventilation Fraction of Inspired Oxygen 30 Intake/Output Intake/Output: Intake & Output 10/12/24 10/13/24 10/14/24 10/15/24 23:59 23:59 23:59 23:59 Intake Total 1743.4 1143.2 1574.1 766.0 Output Total 3800 3000 3500 0 Balance -2056.6 -1856.8 -1925.9 766.0 Meds/Results Medications: Active Medications Generic Name Dose Route Start Last Admin Trade Name Freq PRN Reason Stop Dose Admin Acetaminophen 650 mg 10/08/24 20:49 Acetaminophen 650 Mg Suppository RECTAL Q6H PRN Mild Pain (1-3) or Fever Albuterol/Ipratropium 3 ml 10/09/24 14:00 10/15/24 08:17 Ipratropium 0.5 Mg/Albuterol Sulfate 2.5 Mg Ampul.Neb 3 Ml INHALATION 3 ml Q6HRT CESAR Administration Allopurinol 100 mg 10/09/24 08:00 10/15/24 08:59 Allopurinol 100 Mg Tablet PO 100 mg DAILY@0800 CESAR Administration Apixaban 2.5 mg 10/09/24 09:00 10/11/24 20:01 Apixaban 2.5 Mg Tablet PO 2.5 mg Q12HR CESAR Administration Atorvastatin Calcium 10 mg 10/09/24 09:00 10/15/24 08:59 Atorvastatin 10 Mg Tablet PO 10 mg DAILY CESAR Administration Budesonide 0.5 mg 10/09/24 20:00 10/15/24 08:17 Budesonide Respule Neb 0.5 Mg/2 Ml Amp INHALATION 0.5 mg Q12HRT CESAR Administration Dextrose 12.5 gm 10/08/24 22:06 Dextrose 50% 25 Gm/50 Ml Syringe IV PUSH PRN PRN Hypoglycemia Protocol Glucagon 1 mg 10/08/24 22:06 Glucagon For Inj 1 Mg Vial IM PRN PRN Hypoglycemia Protocol Glucose 15 gm 10/08/24 22:06 Glucose Oral Gel 15 Gm Of Glucse In 37.5 Gm Tube PO PRN PRN Hypoglycemia Protocol Hydrocortisone Sodium Succinate 100 mg 10/09/24 14:30 10/15/24 05:04 Hydrocortisone Sodium Succinate 100 Mg/2 Ml Vial IV PUSH 100 mg Q8HR CESAR Administration Dextrose 1,000 mls @ 100 mls/hr 10/08/24 22:06 Dextrose 5% 1,000 Ml IVPB PRN PRN Hypoglycemia Protocol Ceftriaxone Sodium 2 gm in 100 mls @ 200 mls/hr 10/12/24 11:15 10/15/24 09:00 Rocephin 2 Gm/Ns 100 Ml IVPB 200 mls/hr DAILY CESAR Administration Norepinephrine Bitartrate 8 mg in 250 mls @ 18.75 mls/hr 10/13/24 05:05 10/15/24 06:00 Levophed 8 Mg/D5w 250 Ml IV CONT 10 mcg/min .[id number] CESAR 18.75 mls/hr Titration Protocol 10 MCG/MIN Albumin Human 50 mls @ 999 mls/hr 10/14/24 06:24 Albutein IVPB 11/13/24 06:23 Q10M PRN HYPOTENSION Insulin Aspart 4 - 8 units 10/11/24 12:00 10/15/24 08:57 Insulin Aspart (*Bkc) 100 Units/Ml SUB-Q 4 units Q4H CESAR Administration Protocol Insulin Glargine 25 units 10/14/24 21:00 10/14/24 20:47 Insulin Glargine (*Bkc) 100 Units/Ml SUB-Q 25 units HS CESAR Administration Multi-Ingred Cream/Lotion/Oil/Oint 1 applic 10/10/24 09:00 10/15/24 09:01 Mineral Oil/White Petrolatum Ointment EACH EYE 1 applic Q12HR CESAR Administration Mupirocin 1 applic 10/09/24 09:00 10/15/24 09:01 Mupirocin 2% Oint 22 Gm Tube EACH NARE 1 applic Q12HR CESAR Administration Pantoprazole Sodium 40 mg 10/09/24 13:45 10/15/24 08:59 Pantoprazole Sodium Iv 40 Mg Vial IV PUSH 40 mg QAM CESAR Administration Fluticasone/Salmeterol 2 puff 10/09/24 08:00 10/09/24 09:26 Fluticasone/Salmeterol 115-21 Mcg Inhaler 1 Puff INHALATION Not Given Q12HRT CESAR Sevelamer Carbonate 1.6 gm 10/14/24 08:45 10/15/24 08:59 Sevelamer Carbonate 0.8 Gm Oral Powder Packet BY MOUTH 1.6 gm TIDWM CESAR Administration Sodium Chloride 10 ml 10/09/24 14:00 10/15/24 05:04 Central Line Flush IV PUSH 10 ml Q8HR CESAR Administration Sodium Chloride 20 ml 10/09/24 06:24 Central Line Flush IV PUSH PRN PRN after blood draws Radiology Results: ITS Impressions Pelvis X-Ray 10/08/24 22:22 IMPRESSION: As above. Head CT 10/08/24 23:18 IMPRESSION: No acute intracranial findings. Chest CT 10/08/24 23:27 IMPRESSION: 1. Interstitial thickening in the lower lobes which may indicate pneumonitis. Edema is less likely. 2. Cardiomegaly. 3. Cholelithiasis 4. Splenic cysts unchanged. Abdomen X-Ray 10/13/24 15:22 IMPRESSION: Nasogastric tube in good position and ready for immediate use. Chest X-Ray 10/15/24 06:39 Impression: Perihilar and left lower lobe airspace disease. Correlate for pulmonary edema/atelectasis versus pneumonia. Support tubes, as above. Labs Labs: Laboratory Results - last 24 hr 10/09/24 10/14/24 10/14/24 05:20 09:30 12:02 WBC RBC Hgb Hct MCV MCH MCHC RDW Plt Count MPV Puncture Site ABG pH ABG pCO2 ABG pO2 ABG PO2/FiO2 Ratio ABG HCO3 ABG O2 Saturation ABG O2 Content ABG Base Excess A-a Gradient Oxyhemoglobin Total Hemoglobin O2 Delivery Device O2 Liters/Min Minute Volume Vent Rate Vent Mode FiO2 Tidal Volume PEEP Peak Inspir Pressure Pressure Support Sodium Potassium Chloride Carbon Dioxide Anion Gap BUN Creatinine Estim Creat Clear Calc Estimated GFR Glucose POC Capillary Glucose 97 195 H Calcium Phosphorus Magnesium Mycoplasma pneumon IgM 116 10/14/24 10/14/24 10/14/24 16:39 20:41 23:25 WBC RBC Hgb Hct MCV MCH MCHC RDW Plt Count MPV Puncture Site ABG pH ABG pCO2 ABG pO2 ABG PO2/FiO2 Ratio ABG HCO3 ABG O2 Saturation ABG O2 Content ABG Base Excess A-a Gradient Oxyhemoglobin Total Hemoglobin O2 Delivery Device O2 Liters/Min Minute Volume Vent Rate Vent Mode FiO2 Tidal Volume PEEP Peak Inspir Pressure Pressure Support Sodium Potassium Chloride Carbon Dioxide Anion Gap BUN Creatinine Estim Creat Clear Calc Estimated GFR Glucose POC Capillary Glucose 246 H 244 H 240 H Calcium Phosphorus Magnesium Mycoplasma pneumon IgM 10/15/24 10/15/24 10/15/24 04:46 04:56 04:57 WBC 14.1 H RBC 4.32 L Hgb 13.4 L Hct 41.3 L MCV 95.6 MCH 31.0 MCHC 32.4 RDW 16.6 H Plt Count 119 L D MPV 11.9 H Puncture Site Artline ABG pH 7.430 ABG pCO2 31.0 L ABG pO2 89.9 ABG PO2/FiO2 Ratio 3.00 ABG HCO3 20.1 L ABG O2 Saturation 97.2 ABG O2 Content 18.6 ABG Base Excess -3.1 A-a Gradient 87.6 Oxyhemoglobin 95.5 Total Hemoglobin 13.8 O2 Delivery Device Ventilator O2 Liters/Min Not Reportable Minute Volume Not Reportable Vent Rate 14 Vent Mode Cmv FiO2 30 Tidal Volume 450 PEEP 5 Peak Inspir Pressure Not Reportable Pressure Support Not Reportable Sodium 135 L Potassium 4.4 Chloride 96 L Carbon Dioxide 25 Anion Gap 14 H BUN 72 H D Creatinine 4.97 H Estim Creat Clear Calc 11 Estimated GFR 11 L Glucose 218 H POC Capillary Glucose 206 H Calcium 8.1 L Phosphorus 2.7 Magnesium 2.2 Mycoplasma pneumon IgM Quality VTE Prophylaxis VTE prophylaxis: mechanical ordered
[2024-10-15 11:34] LABS: Basophils Percent Auto 0.2 % (0.2-1.2); Hematocrit 42.2 % (42.0-52.0); Hemoglobin 13.6 g/dL (14.0-18.0); Immature Granulocyte Absolute 0.13 K/mm3 (0.00-0.031); Immature Granulocyte Percent A 0.9 % (0-0.5); Lymphocytes Absolute Auto 0.41 K/mm3 (0.9-3.2); Lymphocytes Percent Auto 2.7 % (18.3-44.2); Mean Corpuscular HGB Conc 32.2 g/dl (32-36); Mean Corpuscular Hemoglobin 30.8 pg (26-34); Mean Corpuscular Volume 95.7 fl (80-100); Mean Platelet Volume 11.8 fl (7.4-10.4); Monocytes Percent Auto 6.5 % (2.6-8.5); Neutrophils Absolute Auto 13.5 K/mm3 (1.3-6.7); Neutrophils Percent Auto 89.7 % (45.5-73.1); Platelet Count Result 133 k/mm3 (150-375); Red Blood Count 4.41 M/mm3 (4.6-6.20); Red Cell Distribution Width 16.8 % (11.5-14.5)
--- NOTE | 2024-10-15 11:49 | PCNFU ---
Nutrition Follow-Up Complete: Increased protein energy needs related to mechanical ventilation as evidenced by need for trophic tube feeding goal: Meet estimated protein energy needs when medically able Patient will continue current goal Pt current nutrition is Nepro at 40 ml/hr with Prosource BID. Last recorded weight is 97.3 kg, down from 103.6 kg on admit. Dialysis pt. Bowel Motility: +BM reported 10/12-Miralax added today per [employer]. Labs Reviewed: Glu 218, Cr 4.97, BUN 72, GFR 11, NA 135 Meds Noted:Protonix, Miralax, Rocephin,Midodrine, NovoLog, Levophed Skin: WNL Additional Notes: Patient remains on mechanical vent. Plans for breathing trail today. Tube feedings are being tolerated of Nepro at 40 ml/hr with protein modular of Prosource BID. Total Nutrition: 1744 kcal/106 gm protein/640 ml water. Flush 30 ml q 4 hours. Agree with diet orders. Monitoring vitals, labs, meds, weights, TF tolerance, output Following daily in rounds. Reassess Tuesdays and Fridays.
--- NOTE | 2024-10-15 11:54 | P.PNNP_ITS ---
Progress Note: A&P Assessment and Plan (1) End-stage renal disease (ESRD): Code(s): N18.6 - End stage renal disease Status: Chronic Assessment and Plan: * HD later today * Chest x-ray still shows some infiltrates. * Will remove more fluid today. * His blood pressure is somewhat soft. I agree with Dr. Mercer with starting the midodrine. * Potassium looks okay (2) Septic shock: Code(s): A41.9 - Sepsis, unspecified organism; R65.21 - Severe sepsis with septic shock Status: Acute Assessment and Plan: * as noted on presentation - AMS + acute on chronic hypotension + lactic acidosis * complicated by chronic hypotension at baseline (on midodrine at baseline) * presumed to be secondary to bacteremia, pneumonia and influenza * culture data noted: * blood cultures (on 10/08) with Streptococcus mitis * blood cultures (on 10/10) with no growth to date * On Levophed now. * Adding midodrine to help see if we can wean this * Echo results noted (see #4) -- no evidence of endocarditis * stress dose steroids * Blood pressure in the mid 90s. (3) Acute respiratory failure: Code(s): J96.00 - Acute respiratory failure, unspecified whether with hypoxia or hypercapnia Status: Acute Assessment and Plan: * multifactorial: * pneumonia * altered mental status * need for airway protection * fluid * intubated on 10/08 in ER * on bronchodilators * fluid removal with dialysis as tolerated * dry ultrafiltration on 10/12 * dry ultrafiltration on 10/14 * Assess in the morning see if we need to do another session tomorrow (4) Bacteremia: Code(s): R78.81 - Bacteremia Status: Acute Assessment and Plan: * 10/08 blood cultures with Streptococcus mitis * 10/10 repeat set of blood culture with growth to date * TTE (10/11 )results noted: * left ventricular systolic function is normal, estimated at > 70% * left ventricular diastolic function is grade II diastolic dysfunction * right ventricular systolic function is reduced. * flattening of the septum in diastole and systole consistent with right ventricular volume and pressure overload * left and right atrial chamber dimension is severely enlarged * mild mitral valve regurgitation * moderate to severe tricuspid valve regurgitation. * pulmonary hypertension, estimated pulmonary arterial systolic pressureis 66 mmHg * cannot rule out vegetations on this study * ROBERT (10/13): * no vegetations noted on the mitral valve -- trace mitral valve regurgitation * no vegetations noted on tricuspid valve -- moderate tricuspid valve regurgitation * no vegetations on the aortic valve -- aortic valve is trileaflet * pulmonary valve appears grossly normal without vegetations * interatrial septum is anatomically normal without evidence of shunt with color-flow Doppler * mild atherosclerotic disease in the aorta. * on ceftriaxone * see #2 (5) Pneumonia: Code(s): J18.9 - Pneumonia, unspecified organism Status: Acute Assessment and Plan: * suggested by recent imaging (CXR + CT scan) * on ceftriaxone (6) Influenza A: Code(s): J10.1 - Influenza due to other identified influenza virus with other respiratory manifestations Status: Acute Assessment and Plan: * as noted by testing in ER * completed course of Tamiflu (renally dosed) (7) Altered mental status: Code(s): R41.82 - Altered mental status, unspecified Status: Acute Assessment and Plan: * noted in ER prior to intubation * presumably due to acute illness (infection/sepsis/shock...etc) * negative head CT * reassess once extubated (8) Anemia: Qualifiers: Anemia type: unspecified type Qualified Code(s): D64.9 - Anemia, unspecified Code(s): D64.9 - Anemia, unspecified Status: Chronic Assessment and Plan: * due to ESRD * hold Retacrit since Hgb > 11 * follow trend of H/H (9) Diabetes: Qualifiers: Diabetes mellitus type: type 2 Diabetes mellitus fpc insulin use: without fpc use Diabetes mellitus complication status: with kidney complications Diabetes mellitus complication detail: with chronic kidney disease Chronic kidney disease stage: on chronic dialysis Qualified Code(s): E11.22 - Type 2 diabetes mellitus with diabetic chronic kidney disease; N18.6 - End stage renal disease; Z99.2 - Dependence on renal dialysis Code(s): E11.9 - Type 2 diabetes mellitus without complications Status: Chronic Assessment and Plan: * follow accu-cheks * glycemic control per hospitalist/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 is in the room. We discussed the case and I answered questions. Patient looks comfortable. Exam Narrative: General: elderly male intubated and on mechanical ventilation Heart: IRRR, normal S1 and S2; no rub or gallop Lungs: coarse breath sounds Abdomen: soft, nontender, nondistended, positive bowel sounds Extremities: no cyanosis or clubbing; chonic edema Skin: no nodules or rash Objective Data Vital Signs Vital Signs: Vital Signs - 24 hr 10/14/24 12:00 10/14/24 12:00 10/14/24 12:00 Temperature 97.3 F L Pulse Rate 72 72 72 Respiratory Rate 14 Blood Pressure 101/49 L 101/49 L 101/49 L Pulse Oximetry 99 Oxygen Delivery Fraction of Inspired Oxygen 10/14/24 12:00 10/14/24 12:00 10/14/24 12:00 Temperature Pulse Rate 72 74 Respiratory Rate 14 Blood Pressure Pulse Oximetry 99 Oxygen Delivery Mechanical Ventilation Fraction of Inspired Oxygen 30 30 10/14/24 12:34 10/14/24 12:41 10/14/24 14:00 Temperature Pulse Rate 72 70 79 Respiratory Rate 15 Blood Pressure 88/42 L 88/42 L 103/51 L Pulse Oximetry 97 Oxygen Delivery Fraction of Inspired Oxygen 10/14/24 14:00 10/14/24 14:00 10/14/24 14:00 Temperature Pulse Rate 79 79 79 Respiratory Rate Blood Pressure 103/51 L 103/51 L Pulse Oximetry Oxygen Delivery Fraction of Inspired Oxygen 10/14/24 14:43 10/14/24 15:39 10/14/24 15:44 Temperature Pulse Rate 74 76 82 Respiratory Rate 18 Blood Pressure 92/44 L Pulse Oximetry 96 Oxygen Delivery Mechanical Ventilation Fraction of Inspired Oxygen 30 10/14/24 16:00 10/14/24 16:00 10/14/24 16:00 Temperature 99.4 F Pulse Rate 76 76 Respiratory Rate 17 17 Blood Pressure 91/44 L Pulse Oximetry 97 97 Oxygen Delivery Mechanical Ventilation Fraction of Inspired Oxygen 30 30 10/14/24 16:00 10/14/24 16:00 10/14/24 17:15 Temperature Pulse Rate 76 71 80 Respiratory Rate Blood Pressure 91/44 L Pulse Oximetry 97 Oxygen Delivery Mechanical Ventilation Fraction of Inspired Oxygen 30 10/14/24 18:00 10/14/24 18:00 10/14/24 18:01 Temperature Pulse Rate 83 83 83 Respiratory Rate 19 Blood Pressure 91/48 L 91/48 L Pulse Oximetry 97 Oxygen Delivery Fraction of Inspired Oxygen 10/14/24 18:48 10/14/24 18:58 10/14/24 20:00 Temperature Pulse Rate 77 80 79 Respiratory Rate Blood Pressure 86/46 L 92/51 L 96/51 L Pulse Oximetry Oxygen Delivery Fraction of Inspired Oxygen 10/14/24 20:00 10/14/24 20:00 10/14/24 20:00 Temperature 98.9 F Pulse Rate 78 78 Respiratory Rate 20 20 Blood Pressure 96/51 L Pulse Oximetry 97 97 Oxygen Delivery Mechanical Ventilation Fraction of Inspired Oxygen 30 30 10/14/24 20:00 10/14/24 20:31 10/14/24 20:38 Temperature Pulse Rate 78 73 83 Respiratory Rate 18 Blood Pressure Pulse Oximetry 97 Oxygen Delivery Mechanical Ventilation Fraction of Inspired Oxygen 30 10/14/24 20:41 10/14/24 22:00 10/14/24 22:00 Temperature Pulse Rate 73 78 78 Respiratory Rate 18 20 Blood Pressure 98/52 L 98/52 L Pulse Oximetry 97 Oxygen Delivery Fraction of Inspired Oxygen 10/14/24 22:00 10/14/24 22:58 10/15/24 00:00 Temperature Pulse Rate 78 82 77 Respiratory Rate Blood Pressure 96/50 L Pulse Oximetry 95 Oxygen Delivery Mechanical Ventilation Fraction of Inspired Oxygen 30 10/15/24 00:00 10/15/24 00:00 10/15/24 00:00 Temperature 98.3 F Pulse Rate 77 77 Respiratory Rate 17 17 Blood Pressure 96/51 L Pulse Oximetry 97 96 Oxygen Delivery Mechanical Ventilation Fraction of Inspired Oxygen 30 30 10/15/24 00:00 10/15/24 01:55 10/15/24 01:55 Temperature Pulse Rate 85 70 70 Respiratory Rate Blood Pressure 91/49 L 91/49 L Pulse Oximetry Oxygen Delivery Fraction of Inspired Oxygen 10/15/24 02:00 10/15/24 02:00 10/15/24 02:00 Temperature Pulse Rate 78 78 78 Respiratory Rate 19 Blood Pressure 92/50 L 92/50 L Pulse Oximetry 97 Oxygen Delivery Fraction of Inspired Oxygen 10/15/24 02:27 10/15/24 02:31 10/15/24 02:35 Temperature Pulse Rate 79 74 75 Respiratory Rate 18 18 Blood Pressure Pulse Oximetry 97 Oxygen Delivery Mechanical Ventilation Fraction of Inspired Oxygen 30 10/15/24 04:00 10/15/24 04:00 10/15/24 04:00 Temperature 97.8 F Pulse Rate 75 75 Respiratory Rate 17 Blood Pressure 94/50 L Pulse Oximetry 98 Oxygen Delivery Fraction of Inspired Oxygen 30 10/15/24 04:00 10/15/24 04:00 10/15/24 05:17 Temperature Pulse Rate 75 77 74 Respiratory Rate 17 Blood Pressure 94/50 L Pulse Oximetry 97 97 Oxygen Delivery Mechanical Ventilation Mechanical Ventilation Fraction of Inspired Oxygen 30 30 10/15/24 06:00 10/15/24 06:00 10/15/24 06:00 Temperature 98.3 F Pulse Rate 74 74 74 Respiratory Rate 20 Blood Pressure 97/50 L 97/50 L Pulse Oximetry 97 Oxygen Delivery Fraction of Inspired Oxygen 10/15/24 08:00 10/15/24 08:00 10/15/24 08:00 Temperature Pulse Rate 67 74 Respiratory Rate 20 Blood Pressure Pulse Oximetry 97 Oxygen Delivery Mechanical Ventilation Fraction of Inspired Oxygen 30 30 10/15/24 08:00 10/15/24 08:17 10/15/24 08:19 Temperature 98.4 F Pulse Rate 73 71 74 Respiratory Rate 19 20 Blood Pressure 94/50 L Pulse Oximetry 97 97 Oxygen Delivery Mechanical Ventilation Fraction of Inspired Oxygen 30 10/15/24 08:32 10/15/24 08:50 10/15/24 10:00 Temperature Pulse Rate 72 77 76 Respiratory Rate 20 20 Blood Pressure 93/49 L Pulse Oximetry 98 98 Oxygen Delivery Mechanical Ventilation Fraction of Inspired Oxygen 30 10/15/24 10:51 Temperature Pulse Rate 74 Respiratory Rate Blood Pressure Pulse Oximetry 97 Oxygen Delivery Mechanical Ventilation Fraction of Inspired Oxygen 30 Intake/Output Intake/Output: Intake & Output 10/12/24 10/13/24 10/14/24 10/15/24 23:59 23:59 23:59 23:59 Intake Total 1743.4 1143.2 1574.1 766.0 Output Total 3800 3000 3500 0 Balance -2056.6 -1856.8 -1925.9 766.0 Meds/Results Medications: Active Medications Generic Name Dose Route Start Last Admin Trade Name Freq PRN Reason Stop Dose Admin Acetaminophen 650 mg 10/08/24 20:49 Acetaminophen 650 Mg Suppository RECTAL Q6H PRN Mild Pain (1-3) or Fever Albuterol/Ipratropium 3 ml 10/09/24 14:00 10/15/24 08:17 Ipratropium 0.5 Mg/Albuterol Sulfate 2.5 Mg Ampul.Neb 3 Ml INHALATION 3 ml Q6HRT CESAR Administration Allopurinol 100 mg 10/09/24 08:00 10/15/24 08:59 Allopurinol 100 Mg Tablet PO 100 mg DAILY@0800 CESAR Administration Apixaban 2.5 mg 10/09/24 09:00 10/11/24 20:01 Apixaban 2.5 Mg Tablet PO 2.5 mg Q12HR CESAR Administration Atorvastatin Calcium 10 mg 10/09/24 09:00 10/15/24 08:59 Atorvastatin 10 Mg Tablet PO 10 mg DAILY CESAR Administration Budesonide 0.5 mg 10/09/24 20:00 10/15/24 08:17 Budesonide Respule Neb 0.5 Mg/2 Ml Amp INHALATION 0.5 mg Q12HRT CESAR Administration Dextrose 12.5 gm 10/08/24 22:06 Dextrose 50% 25 Gm/50 Ml Syringe IV PUSH PRN PRN Hypoglycemia Protocol Glucagon 1 mg 10/08/24 22:06 Glucagon For Inj 1 Mg Vial IM PRN PRN Hypoglycemia Protocol Glucose 15 gm 10/08/24 22:06 Glucose Oral Gel 15 Gm Of Glucse In 37.5 Gm Tube PO PRN PRN Hypoglycemia Protocol Hydrocortisone Sodium Succinate 100 mg 10/09/24 14:30 10/15/24 05:04 Hydrocortisone Sodium Succinate 100 Mg/2 Ml Vial IV PUSH 100 mg Q8HR CESAR Administration Dextrose 1,000 mls @ 100 mls/hr 10/08/24 22:06 Dextrose 5% 1,000 Ml IVPB PRN PRN Hypoglycemia Protocol Ceftriaxone Sodium 2 gm in 100 mls @ 200 mls/hr 10/12/24 11:15 10/15/24 09:00 Rocephin 2 Gm/Ns 100 Ml IVPB 10/17/24 23:59 200 mls/hr DAILY CESAR Administration Norepinephrine Bitartrate 8 mg in 250 mls @ 18.75 mls/hr 10/13/24 05:05 10/15/24 09:46 Levophed 8 Mg/D5w 250 Ml IV CONT Not Given .[id number] CESAR Protocol 10 MCG/MIN Albumin Human 50 mls @ 999 mls/hr 10/14/24 06:24 Albutein IVPB 11/13/24 06:23 Q10M PRN HYPOTENSION Insulin Aspart 4 - 8 units 10/11/24 12:00 10/15/24 08:57 Insulin Aspart (*Bkc) 100 Units/Ml SUB-Q 4 units Q4H CESAR Administration Protocol Insulin Glargine 25 units 10/14/24 21:00 10/14/24 20:47 Insulin Glargine (*Bkc) 100 Units/Ml SUB-Q 25 units HS CESAR Administration Midodrine 10 mg 10/15/24 13:00 Midodrine Hcl 10 Mg Tablet PO TID CESAR Multi-Ingred Cream/Lotion/Oil/Oint 1 applic 10/10/24 09:00 10/15/24 09:01 Mineral Oil/White Petrolatum Ointment EACH EYE 1 applic Q12HR CESAR Administration Mupirocin 1 applic 10/09/24 09:00 10/15/24 09:01 Mupirocin 2% Oint 22 Gm Tube EACH NARE 1 applic Q12HR CESAR Administration Pantoprazole Sodium 40 mg 10/09/24 13:45 10/15/24 08:59 Pantoprazole Sodium Iv 40 Mg Vial IV PUSH 40 mg QAM CESAR Administration Polyethylene Glycol 17 gm 10/15/24 10:25 Polyethylene Glycol 3350 17 Gm Powd.Pack PO QAM CESAR Fluticasone/Salmeterol 2 puff 10/09/24 08:00 10/09/24 09:26 Fluticasone/Salmeterol 115-21 Mcg Inhaler 1 Puff INHALATION Not Given Q12HRT CESAR Sevelamer Carbonate 1.6 gm 10/14/24 08:45 10/15/24 08:59 Sevelamer Carbonate 0.8 Gm Oral Powder Packet BY MOUTH 1.6 gm TIDWM CESAR Administration Sodium Chloride 10 ml 10/09/24 14:00 10/15/24 05:04 Central Line Flush IV PUSH 10 ml Q8HR CESAR Administration Sodium Chloride 20 ml 10/09/24 06:24 Central Line Flush IV PUSH PRN PRN after blood draws Radiology Results: ITS Impressions Pelvis X-Ray 10/08/24 22:22 IMPRESSION: As above. Head CT 10/08/24 23:18 IMPRESSION: No acute intracranial findings. Chest CT 10/08/24 23:27 IMPRESSION: 1. Interstitial thickening in the lower lobes which may indicate pneumonitis. Edema is less likely. 2. Cardiomegaly. 3. Cholelithiasis 4. Splenic cysts unchanged. Abdomen X-Ray 10/13/24 15:22 IMPRESSION: Nasogastric tube in good position and ready for immediate use. Chest X-Ray 10/15/24 06:39 Impression: Perihilar and left lower lobe airspace disease. Correlate for pulmonary edema/atelectasis versus pneumonia. Support tubes, as above. Labs Labs: Laboratory Results - last 24 hr 10/09/24 10/14/24 10/14/24 05:20 12:02 16:39 WBC RBC Hgb Hct MCV MCH MCHC RDW Plt Count MPV Immature Gran % (Auto) Neut % (Auto) Lymph % (Auto) [place] % (Auto) Eos % (Auto) Baso % (Auto) Lymph # (Auto) [place] # (Auto) Eos # (Auto) Baso # (Auto) Abs Immat Gran (auto) Absolute Neuts (auto) Absolute Nucleated RBC Nucleated RBC % Puncture Site ABG pH ABG pCO2 ABG pO2 ABG PO2/FiO2 Ratio ABG HCO3 ABG O2 Saturation ABG O2 Content ABG Base Excess A-a Gradient Oxyhemoglobin Total Hemoglobin O2 Delivery Device O2 Liters/Min Minute Volume Vent Rate Vent Mode FiO2 Tidal Volume PEEP Peak Inspir Pressure Pressure Support Sodium Potassium Chloride Carbon Dioxide Anion Gap BUN Creatinine Estim Creat Clear Calc Estimated GFR Glucose POC Capillary Glucose 195 H 246 H Calcium Phosphorus Magnesium Mycoplasma pneumon IgM 116 10/14/24 10/14/24 10/15/24 20:41 23:25 04:46 WBC RBC Hgb Hct MCV MCH MCHC RDW Plt Count MPV Immature Gran % (Auto) Neut % (Auto) Lymph % (Auto) [place] % (Auto) Eos % (Auto) Baso % (Auto) Lymph # (Auto) [place] # (Auto) Eos # (Auto) Baso # (Auto) Abs Immat Gran (auto) Absolute Neuts (auto) Absolute Nucleated RBC Nucleated RBC % Puncture Site ABG pH ABG pCO2 ABG pO2 ABG PO2/FiO2 Ratio ABG HCO3 ABG O2 Saturation ABG O2 Content ABG Base Excess A-a Gradient Oxyhemoglobin Total Hemoglobin O2 Delivery Device O2 Liters/Min Minute Volume Vent Rate Vent Mode FiO2 Tidal Volume PEEP Peak Inspir Pressure Pressure Support Sodium Potassium Chloride Carbon Dioxide Anion Gap BUN Creatinine Estim Creat Clear Calc Estimated GFR Glucose POC Capillary Glucose 244 H 240 H 206 H Calcium Phosphorus Magnesium Mycoplasma pneumon IgM 10/15/24 10/15/24 10/15/24 04:56 04:57 08:56 WBC 14.1 H RBC 4.32 L Hgb 13.4 L Hct 41.3 L MCV 95.6 MCH 31.0 MCHC 32.4 RDW 16.6 H Plt Count 119 L D MPV 11.9 H Immature Gran % (Auto) Neut % (Auto) Lymph % (Auto) [place] % (Auto) Eos % (Auto) Baso % (Auto) Lymph # (Auto) [place] # (Auto) Eos # (Auto) Baso # (Auto) Abs Immat Gran (auto) Absolute Neuts (auto) Absolute Nucleated RBC Nucleated RBC % Puncture Site Artline ABG pH 7.430 ABG pCO2 31.0 L ABG pO2 89.9 ABG PO2/FiO2 Ratio 3.00 ABG HCO3 20.1 L ABG O2 Saturation 97.2 ABG O2 Content 18.6 ABG Base Excess -3.1 A-a Gradient 87.6 Oxyhemoglobin 95.5 Total Hemoglobin 13.8 O2 Delivery Device Ventilator O2 Liters/Min Not Reportable Minute Volume Not Reportable Vent Rate 14 Vent Mode Cmv FiO2 30 Tidal Volume 450 PEEP 5 Peak Inspir Pressure Not Reportable Pressure Support Not Reportable Sodium 135 L Potassium 4.4 Chloride 96 L Carbon Dioxide 25 Anion Gap 14 H BUN 72 H D Creatinine 4.97 H Estim Creat Clear Calc 11 Estimated GFR 11 L Glucose 218 H POC Capillary Glucose 238 H Calcium 8.1 L Phosphorus 2.7 Magnesium 2.2 Mycoplasma pneumon IgM 10/15/24 11:22 WBC 15.0 H RBC 4.41 L Hgb 13.6 L Hct 42.2 MCV 95.7 MCH 30.8 MCHC 32.2 RDW 16.8 H Plt Count 133 L MPV 11.8 H Immature Gran % (Auto) 0.9 H Neut % (Auto) 89.7 H Lymph % (Auto) 2.7 L [place] % (Auto) 6.5 Eos % (Auto) 0.0 Baso % (Auto) 0.2 Lymph # (Auto) 0.41 L [place] # (Auto) 1.0 H Eos # (Auto) 0.0 Baso # (Auto) 0.0 Abs Immat Gran (auto) 0.13 H Absolute Neuts (auto) 13.5 H Absolute Nucleated RBC 0.000 Nucleated RBC % 0.0 Puncture Site ABG pH ABG pCO2 ABG pO2 ABG PO2/FiO2 Ratio ABG HCO3 ABG O2 Saturation ABG O2 Content ABG Base Excess A-a Gradient Oxyhemoglobin Total Hemoglobin O2 Delivery Device O2 Liters/Min Minute Volume Vent Rate Vent Mode FiO2 Tidal Volume PEEP Peak Inspir Pressure Pressure Support Sodium Potassium Chloride Carbon Dioxide Anion Gap BUN Creatinine Estim Creat Clear Calc Estimated GFR Glucose POC Capillary Glucose Calcium Phosphorus Magnesium Mycoplasma pneumon IgM
[2024-10-15] MEDS: polyethylene glycoL 3350 17 GM POWD.PACK PO (12:10)
[2024-10-15] MEDS: MIDODRINE HCL 10 MG TABLET PO ×2 (12:10→17:42)
[2024-10-15 12:18] LABS: Hypochromasia 1+; Ovalocytes 1+; Platelet Estimate Slightly Decreased (Adequate)
[2024-10-15 12:19] LABS: Anisocytosis 1+; Schistocytes None Seen
[2024-10-15 14:08] LABS: Glucose Point of Care 245 mg/dl (65-105)
--- NOTE | 2024-10-15 14:30 | PC.NURSE ---
Patient had a 13 [address] Mercer notified. No sign or symptom of distress noted.
[2024-10-15 16:13] LABS: Glucose Point of Care 251 mg/dl (65-105)
[2024-10-15] MEDS: ALBUMIN HUMAN 25% 12.5 GM/50ML 50 ML IVPB (17:09)
--- NOTE | 2024-10-15 17:28 | P.PNIM_ITS ---
Progress Note: A&P Assessment and Plan (1) Sepsis: Code(s): A41.9 - Sepsis, unspecified organism Status: Acute (2) Influenza: Code(s): J11.1 - Influenza due to unidentified influenza virus with other respiratory manifestations Status: Acute (3) Pneumonia: Code(s): J18.9 - Pneumonia, unspecified organism Status: Acute (4) Altered mental status: Code(s): R41.82 - Altered mental status, unspecified Status: Acute (5) End-stage renal disease on hemodialysis: Code(s): N18.6 - End stage renal disease; Z99.2 - Dependence on renal dialysis Status: Acute (6) Type 2 diabetes mellitus with diabetic neuropathy: Qualifiers: Diabetes mellitus intermediate project manager insulin use: without intermediate project manager use Qualified Code(s): E11.40 - Type 2 diabetes mellitus with diabetic neuropathy, unspecified Code(s): E11.40 - Type 2 diabetes mellitus with diabetic neuropathy, unspecified Status: Chronic Plan The patient presented to the emergency department for evaluation of altered mental status following dialysis as detailed in HPI. Labs, imaging, EKG, and all reports were personally reviewed. He meets sepsis criteria with hypotension, low-grade fever, bandemia, lactic acidosis, and altered mental status in the setting of infection. He remained hypotensive following a 1.5 L normal saline bolus (more fluids were not given due to his end-stage renal disease) and he has been started on vasopressors with a target MAP of at least 65. He tested positive for influenza A and chest x-ray shows findings of possible pneumonia for which he has been started on oseltamivir and azithromycin, ceftriaxone, and vancomycin. MRSA nasal screen pending. Sputum culture ordered. There were no reports of obvious focal deficits on exam in the ED and his altered mental status may very well be related to sepsis, influenza, and hypotension. Brain CT was without acute findings. Initiate sliding scale insulin, Accu-Cheks, and hypoglycemic protocol. He will be due for dialysis on Friday. His medications will be reviewed and resumed as appropriate. Findings and treatment plan were discussed with the patient's . Questions were solicited and answered to satisfaction. The patient's medical management will be taken over by the hospitalist team in a.m. patient presented with hypotension and confusion, patient was intubated and on ventilator, patient is receiving IVF and on pressor, discussed with animal nursery worker patient blood pressure is improving and his off pressors, patient is found to have Influenza A treated with Tamiflu patient's and son are present in the room, on 10/13 patient had ROBERT there is no evidence endocarditis, patient is clinically improving and discussed with animal nursery worker plan give weaning trial tomorrow, patient is being prepared to have HD today, plan is to remove 3L, patient is seen by animal nursery worker and further recommendation to follow. Subjective Date/time seen: 10/15/24 17:28 Interval history: Altered mental status. H&P-Narrative: This is an 84-year-old male with end-stage renal disease on hemodialysis, congestive heart failure, pulmonary hypertension, type 2 diabetes mellitus, atrial fibrillation on anticoagulation, hypertension, chronic anemia, and other comorbidities who presented to the emergency department via EMS for evaluation of altered mental status after dialysis. He was intubated in the emergency department and the following history is obtained from the patient's as well as review of his electronic medical records. He went to dialysis at 05:00 and completed a session. His that time he has reportedly been increasingly confused, mumbling to himself and not making any sense. In the ED his only complaint was that of not feeling well but he did not elaborate. reports that he had a bit of a cough yesterday which she believes was nonproductive. There were no reports of fever, cold and flu symptoms, vomiting, or diarrhea. In the ED: Vital signs on arrival include a temperature of 99.8?, blood pressure 72/37, pulse 87, respiratory 22, SpO2 95%. Labs were significant for WBC count of 7.9 with 10 bands noted on manual differential, sodium 136, chloride 92, carbon dioxide 34, BUN 26, creatinine 3.68, lactic acid 2.9, calcium 7.9, total bilirubin 2.1. He tested positive for influenza A. Chest x-ray showed bilateral social pneumonitis versus pulmonary edema. Blood pressure continue to drift down words and he was given a 1500 mL bolus of normal saline without much improvement. The decision was made to put in the central line and start the patient on vasopressors however the patient had difficulties lying still for central line placement and he was sedated and eventually intubated and he is being admitted to the ICU in this setting with hypotension, influenza, pneumonia, and altered mental status. patient presented with hypotension and confusion, patient was intubated and on ventilator, patient is receiving IVF and on pressor, discussed with animal nursery worker patient blood pressure is improving and his off pressors, patient is found to have Influenza A treated with Tamiflu patient's and son are present in the room, on 10/13 patient had ROBERT there is no evidence endocarditis, patient is clinically improving and discussed with animal nursery worker plan give weaning trial tomorrow, patient is being prepared to have HD today, plan is to remove 3L, patient is seen by animal nursery worker and further recommendation to follow. Review of Systems Review of Systems: ROS unobtainable: Yes unobtainable due to endotracheal tube Exam Narrative: Patient is comfortable, NAD HEENT: ET tube in place LUNGS:CTA HEART: RR S1S2 ABD: BS+, Soft and nontender Lower extremities: no edema SKIN: nonjaundiced Neuro: On vent and sedated Objective Data Vital Signs Vital Signs: Vital Signs - 24 hr 10/14/24 18:00 10/14/24 18:00 10/14/24 18:01 Temperature Pulse Rate 83 83 83 Respiratory Rate 19 Blood Pressure 91/48 L 91/48 L Pulse Oximetry 97 Oxygen Delivery Fraction of Inspired Oxygen 10/14/24 18:48 10/14/24 18:58 10/14/24 20:00 Temperature Pulse Rate 77 80 79 Respiratory Rate Blood Pressure 86/46 L 92/51 L 96/51 L Pulse Oximetry Oxygen Delivery Fraction of Inspired Oxygen 10/14/24 20:00 10/14/24 20:00 10/14/24 20:00 Temperature 37.2 C Pulse Rate 78 78 Respiratory Rate 20 20 Blood Pressure 96/51 L Pulse Oximetry 97 97 Oxygen Delivery Mechanical Ventilation Fraction of Inspired Oxygen 30 30 10/14/24 20:00 10/14/24 20:31 10/14/24 20:38 Temperature Pulse Rate 78 73 83 Respiratory Rate 18 Blood Pressure Pulse Oximetry 97 Oxygen Delivery Mechanical Ventilation Fraction of Inspired Oxygen 30 10/14/24 20:41 10/14/24 22:00 10/14/24 22:00 Temperature Pulse Rate 73 78 78 Respiratory Rate 18 20 Blood Pressure 98/52 L 98/52 L Pulse Oximetry 97 Oxygen Delivery Fraction of Inspired Oxygen 10/14/24 22:00 10/14/24 22:58 10/15/24 00:00 Temperature Pulse Rate 78 82 77 Respiratory Rate Blood Pressure 96/50 L Pulse Oximetry 95 Oxygen Delivery Mechanical Ventilation Fraction of Inspired Oxygen 30 10/15/24 00:00 10/15/24 00:00 10/15/24 00:00 Temperature 36.8 C Pulse Rate 77 77 Respiratory Rate 17 17 Blood Pressure 96/51 L Pulse Oximetry 97 96 Oxygen Delivery Mechanical Ventilation Fraction of Inspired Oxygen 30 30 10/15/24 00:00 10/15/24 01:55 10/15/24 01:55 Temperature Pulse Rate 85 70 70 Respiratory Rate Blood Pressure 91/49 L 91/49 L Pulse Oximetry Oxygen Delivery Fraction of Inspired Oxygen 10/15/24 02:00 10/15/24 02:00 10/15/24 02:00 Temperature Pulse Rate 78 78 78 Respiratory Rate 19 Blood Pressure 92/50 L 92/50 L Pulse Oximetry 97 Oxygen Delivery Fraction of Inspired Oxygen 10/15/24 02:27 10/15/24 02:31 10/15/24 02:35 Temperature Pulse Rate 79 74 75 Respiratory Rate 18 18 Blood Pressure Pulse Oximetry 97 Oxygen Delivery Mechanical Ventilation Fraction of Inspired Oxygen 30 10/15/24 04:00 10/15/24 04:00 10/15/24 04:00 Temperature 36.6 C Pulse Rate 75 75 Respiratory Rate 17 Blood Pressure 94/50 L Pulse Oximetry 98 Oxygen Delivery Fraction of Inspired Oxygen 30 10/15/24 04:00 10/15/24 04:00 10/15/24 05:17 Temperature Pulse Rate 75 77 74 Respiratory Rate 17 Blood Pressure 94/50 L Pulse Oximetry 97 97 Oxygen Delivery Mechanical Ventilation Mechanical Ventilation Fraction of Inspired Oxygen 30 30 10/15/24 06:00 10/15/24 06:00 10/15/24 06:00 Temperature 36.8 C Pulse Rate 74 74 74 Respiratory Rate 20 Blood Pressure 97/50 L 97/50 L Pulse Oximetry 97 Oxygen Delivery Fraction of Inspired Oxygen 10/15/24 08:00 10/15/24 08:00 10/15/24 08:00 Temperature Pulse Rate 67 74 Respiratory Rate 20 Blood Pressure Pulse Oximetry 97 Oxygen Delivery Mechanical Ventilation Fraction of Inspired Oxygen 30 30 10/15/24 08:00 10/15/24 08:00 10/15/24 08:17 Temperature 36.9 C Pulse Rate 73 73 71 Respiratory Rate 19 20 Blood Pressure 94/50 L 96/50 L Pulse Oximetry 97 Oxygen Delivery Fraction of Inspired Oxygen 10/15/24 08:19 10/15/24 08:32 10/15/24 08:44 Temperature Pulse Rate 74 72 Respiratory Rate 20 Blood Pressure Pulse Oximetry 97 Oxygen Delivery Mechanical Ventilation Fraction of Inspired Oxygen 30 30 10/15/24 08:50 10/15/24 09:30 10/15/24 10:00 Temperature Pulse Rate 77 74 76 Respiratory Rate 20 Blood Pressure 92/48 L 93/49 L Pulse Oximetry 98 98 Oxygen Delivery Mechanical Ventilation Fraction of Inspired Oxygen 30 10/15/24 10:00 10/15/24 10:00 10/15/24 10:51 Temperature Pulse Rate 75 75 74 Respiratory Rate Blood Pressure 96/51 L Pulse Oximetry 97 Oxygen Delivery Mechanical Ventilation Fraction of Inspired Oxygen 30 10/15/24 12:00 10/15/24 12:00 10/15/24 12:00 Temperature 36.9 C Pulse Rate 75 75 Respiratory Rate 20 Blood Pressure 100/52 L 100/52 L Pulse Oximetry 98 Oxygen Delivery Fraction of Inspired Oxygen 30 10/15/24 12:00 10/15/24 12:00 10/15/24 12:30 Temperature Pulse Rate 79 79 75 Respiratory Rate 20 Blood Pressure 101/55 L Pulse Oximetry 97 Oxygen Delivery Mechanical Ventilation Fraction of Inspired Oxygen 30 10/15/24 14:00 10/15/24 14:00 10/15/24 14:00 Temperature Pulse Rate 79 79 75 Respiratory Rate 21 H Blood Pressure 99/52 L 99/52 L Pulse Oximetry 98 Oxygen Delivery Fraction of Inspired Oxygen 10/15/24 14:19 10/15/24 14:19 10/15/24 14:23 Temperature Pulse Rate 81 81 74 Respiratory Rate 22 H Blood Pressure 94/51 L 94/51 L Pulse Oximetry Oxygen Delivery Fraction of Inspired Oxygen 10/15/24 14:24 10/15/24 14:39 10/15/24 16:50 Temperature Pulse Rate 71 79 79 Respiratory Rate 20 Blood Pressure Pulse Oximetry 98 98 Oxygen Delivery Mechanical Ventilation Mechanical Ventilation Fraction of Inspired Oxygen 30 30 10/15/24 17:09 10/15/24 17:15 Temperature Pulse Rate 73 79 Respiratory Rate Blood Pressure 93/50 L 95/52 L Pulse Oximetry Oxygen Delivery Fraction of Inspired Oxygen Intake/Output Intake/Output: Intake & Output 10/12/24 10/13/24 10/14/24 03/14/25 23:59 23:59 23:59 23:59 Intake Total 1743.4 1143.2 1574.1 1455.0 Output Total 3800 3000 3500 0 Balance -2056.6 -1856.8 -1925.9 1455.0 Meds/Results Medications: Active Medications Generic Name Dose Route Start Last Admin Trade Name Freq PRN Reason Stop Dose Admin Acetaminophen 650 mg 10/08/24 20:49 Acetaminophen 650 Mg Suppository RECTAL Q6H PRN Mild Pain (1-3) or Fever Albuterol/Ipratropium 3 ml 10/09/24 14:00 10/15/24 14:22 Ipratropium 0.5 Mg/Albuterol Sulfate 2.5 Mg Ampul.Neb 3 Ml INHALATION 3 ml Q6HRT CESAR Administration Allopurinol 100 mg 10/09/24 08:00 10/15/24 08:59 Allopurinol 100 Mg Tablet PO 100 mg DAILY@0800 CESAR Administration Apixaban 2.5 mg 10/09/24 09:00 10/11/24 20:01 Apixaban 2.5 Mg Tablet PO 2.5 mg Q12HR CESAR Administration Atorvastatin Calcium 10 mg 10/09/24 09:00 10/15/24 08:59 Atorvastatin 10 Mg Tablet PO 10 mg DAILY CESAR Administration Budesonide 0.5 mg 10/09/24 20:00 10/15/24 08:17 Budesonide Respule Neb 0.5 Mg/2 Ml Amp INHALATION 0.5 mg Q12HRT CESAR Administration Dextrose 12.5 gm 10/08/24 22:06 Dextrose 50% 25 Gm/50 Ml Syringe IV PUSH PRN PRN Hypoglycemia Protocol Glucagon 1 mg 10/08/24 22:06 Glucagon For Inj 1 Mg Vial IM PRN PRN Hypoglycemia Protocol Glucose 15 gm 10/08/24 22:06 Glucose Oral Gel 15 Gm Of Glucse In 37.5 Gm Tube PO PRN PRN Hypoglycemia Protocol Hydrocortisone Sodium Succinate 100 mg 10/09/24 14:30 10/15/24 14:08 Hydrocortisone Sodium Succinate 100 Mg/2 Ml Vial IV PUSH 100 mg Q8HR CESAR Administration Dextrose 1,000 mls @ 100 mls/hr 10/08/24 22:06 Dextrose 5% 1,000 Ml IVPB PRN PRN Hypoglycemia Protocol Ceftriaxone Sodium 2 gm in 100 mls @ 200 mls/hr 10/12/24 11:15 10/15/24 09:30 Rocephin 2 Gm/Ns 100 Ml IVPB 10/17/24 23:59 Infused DAILY CESAR Infusion Norepinephrine Bitartrate 8 mg in 250 mls @ 18.75 mls/hr 10/13/24 05:05 10/15/24 14:19 Levophed 8 Mg/D5w 250 Ml IV CONT 10 mcg/min .[id number] CESAR 18.75 mls/hr Administration Protocol 10 MCG/MIN Albumin Human 50 mls @ 999 mls/hr 10/14/24 06:24 Albutein IVPB 11/13/24 06:23 Q10M PRN HYPOTENSION Insulin Aspart 4 - 8 units 10/11/24 12:00 10/15/24 16:18 Insulin Aspart (*Bkc) 100 Units/Ml SUB-Q 5 units Q4H CESAR Administration Protocol Insulin Glargine 25 units 10/14/24 21:00 10/14/24 20:47 Insulin Glargine (*Bkc) 100 Units/Ml SUB-Q 25 units HS CESAR Administration Midodrine 10 mg 10/15/24 13:00 10/15/24 12:10 Midodrine Hcl 10 Mg Tablet PO 10 mg TID CESAR Administration Multi-Ingred Cream/Lotion/Oil/Oint 1 applic 10/10/24 09:00 10/15/24 09:01 Mineral Oil/White Petrolatum Ointment EACH EYE 1 applic Q12HR CESAR Administration Mupirocin 1 applic 10/09/24 09:00 10/15/24 09:01 Mupirocin 2% Oint 22 Gm Tube EACH NARE 1 applic Q12HR CESAR Administration Pantoprazole Sodium 40 mg 10/09/24 13:45 10/15/24 08:59 Pantoprazole Sodium Iv 40 Mg Vial IV PUSH 40 mg QAM CESAR Administration Polyethylene Glycol 17 gm 10/15/24 10:25 10/15/24 12:10 Polyethylene Glycol 3350 17 Gm Powd.Pack PO 17 gm QAM CESAR Administration Fluticasone/Salmeterol 2 puff 10/09/24 08:00 10/09/24 09:26 Fluticasone/Salmeterol 115-21 Mcg Inhaler 1 Puff INHALATION Not Given Q12HRT CESAR Sevelamer Carbonate 1.6 gm 10/14/24 08:45 10/15/24 12:12 Sevelamer Carbonate 0.8 Gm Oral Powder Packet BY MOUTH 1.6 gm TIDWM CESAR Administration Sodium Chloride 10 ml 10/09/24 14:00 10/15/24 14:08 Central Line Flush IV PUSH 10 ml Q8HR CESAR Administration Sodium Chloride 20 ml 10/09/24 06:24 Central Line Flush IV PUSH PRN PRN after blood draws Radiology Results: ITS Impressions Pelvis X-Ray 10/08/24 22:22 IMPRESSION: As above. Head CT 10/08/24 23:18 IMPRESSION: No acute intracranial findings. Chest CT 10/08/24 23:27 IMPRESSION: 1. Interstitial thickening in the lower lobes which may indicate pneumonitis. Edema is less likely. 2. Cardiomegaly. 3. Cholelithiasis 4. Splenic cysts unchanged. Abdomen X-Ray 10/13/24 15:22 IMPRESSION: Nasogastric tube in good position and ready for immediate use. Chest X-Ray 10/15/24 06:39 Impression: Perihilar and left lower lobe airspace disease. Correlate for pulmonary edema/atelectasis versus pneumonia. Support tubes, as above. Labs Labs: Laboratory Results - last 24 hr 10/14/24 10/14/24 10/15/24 20:41 23:25 04:46 WBC RBC Hgb Hct MCV MCH MCHC RDW Plt Count MPV Immature Gran % (Auto) Neut % (Auto) Lymph % (Auto) Mcdonough % (Auto) Eos % (Auto) Baso % (Auto) Lymph # (Auto) Mcdonough # (Auto) Eos # (Auto) Baso # (Auto) Abs Immat Gran (auto) Absolute Neuts (auto) Absolute Nucleated RBC Band Neutrophils % Nucleated RBC % Platelet Estimate Hypochromasia Anisocytosis Ovalocytes Schistocytes Puncture Site ABG pH ABG pCO2 ABG pO2 ABG PO2/FiO2 Ratio ABG HCO3 ABG O2 Saturation ABG O2 Content ABG Base Excess A-a Gradient Oxyhemoglobin Total Hemoglobin O2 Delivery Device O2 Liters/Min Minute Volume Vent Rate Vent Mode FiO2 Tidal Volume PEEP Peak Inspir Pressure Pressure Support Sodium Potassium Chloride Carbon Dioxide Anion Gap BUN Creatinine Estim Creat Clear Calc Estimated GFR Glucose POC Capillary Glucose 244 H 240 H 206 H Calcium Phosphorus Magnesium 10/15/24 10/15/24 10/15/24 04:56 04:57 08:56 WBC 14.1 H RBC 4.32 L Hgb 13.4 L Hct 41.3 L MCV 95.6 MCH 31.0 MCHC 32.4 RDW 16.6 H Plt Count 119 L D MPV 11.9 H Immature Gran % (Auto) Neut % (Auto) Lymph % (Auto) Mcdonough % (Auto) Eos % (Auto) Baso % (Auto) Lymph # (Auto) Mcdonough # (Auto) Eos # (Auto) Baso # (Auto) Abs Immat Gran (auto) Absolute Neuts (auto) Absolute Nucleated RBC Band Neutrophils % Nucleated RBC % Platelet Estimate Hypochromasia Anisocytosis Ovalocytes Schistocytes Puncture Site Artline ABG pH 7.430 ABG pCO2 31.0 L ABG pO2 89.9 ABG PO2/FiO2 Ratio 3.00 ABG HCO3 20.1 L ABG O2 Saturation 97.2 ABG O2 Content 18.6 ABG Base Excess -3.1 A-a Gradient 87.6 Oxyhemoglobin 95.5 Total Hemoglobin 13.8 O2 Delivery Device Ventilator O2 Liters/Min Not Reportable Minute Volume Not Reportable Vent Rate 14 Vent Mode Cmv FiO2 30 Tidal Volume 450 PEEP 5 Peak Inspir Pressure Not Reportable Pressure Support Not Reportable Sodium 135 L Potassium 4.4 Chloride 96 L Carbon Dioxide 25 Anion Gap 14 H BUN 72 H D Creatinine 4.97 H Estim Creat Clear Calc 11 Estimated GFR 11 L Glucose 218 H POC Capillary Glucose 238 H Calcium 8.1 L Phosphorus 2.7 Magnesium 2.2 10/15/24 10/15/24 10/15/24 11:22 12:06 16:03 WBC 15.0 H RBC 4.41 L Hgb 13.6 L Hct 42.2 MCV 95.7 MCH 30.8 MCHC 32.2 RDW 16.8 H Plt Count 133 L MPV 11.8 H Immature Gran % (Auto) 0.9 H Neut % (Auto) 89.7 H Lymph % (Auto) 2.7 L Mcdonough % (Auto) 6.5 Eos % (Auto) 0.0 Baso % (Auto) 0.2 Lymph # (Auto) 0.41 L Mcdonough # (Auto) 1.0 H Eos # (Auto) 0.0 Baso # (Auto) 0.0 Abs Immat Gran (auto) 0.13 H Absolute Neuts (auto) 13.5 H Absolute Nucleated RBC 0.000 Band Neutrophils % Not Reportable Nucleated RBC % 0.0 Platelet Estimate Slightly decreased Hypochromasia 1+ Anisocytosis 1+ Ovalocytes 1+ Schistocytes None seen Puncture Site ABG pH ABG pCO2 ABG pO2 ABG PO2/FiO2 Ratio ABG HCO3 ABG O2 Saturation ABG O2 Content ABG Base Excess A-a Gradient Oxyhemoglobin Total Hemoglobin O2 Delivery Device O2 Liters/Min Minute Volume Vent Rate Vent Mode FiO2 Tidal Volume PEEP Peak Inspir Pressure Pressure Support Sodium Potassium Chloride Carbon Dioxide Anion Gap BUN Creatinine Estim Creat Clear Calc Estimated GFR Glucose POC Capillary Glucose 245 H 251 H Calcium Phosphorus Magnesium Quality VTE Prophylaxis VTE prophylaxis: mechanical ordered
[2024-10-15 21:38] LABS: Glucose Point of Care 208 mg/dl (65-105)
[2024-10-15] MEDS: APIXABAN 2.5 MG TABLET PO (21:39)
[2024-10-15] MEDS: INSULIN GLARGINE (*BKC) 100 UNITS/ML 25 UNITS SUB-Q (21:39)
[2024-10-16] VITALS (52 sets, daily range): BP systolic 74–116; BP diastolic 40–71; PULSE 65–83; RESP 15–28; TEMP 36.6–37.7; O2SAT 95–100
[2024-10-16 02:00] LABS: Glucose Point of Care 177 mg/dl (65-105)
[2024-10-16] MEDS: NOREPINEPHRINE 8 MG/D5W 250 ML 8 MG/250 ML BAG 20.63 MG IV CONT (02:00)
[2024-10-16] MEDS: IPRATROPIUM 0.5 MG/ALBUTEROL SULFATE 2.5 MG AMPUL.NEB 3 ML INHALATION ×4 (02:22→20:32)
[2024-10-16 05:32] LABS: Basophils Percent Auto 0.2 % (0.2-1.2); Hematocrit 43.7 % (42.0-52.0); Hemoglobin 14.3 g/dL (14.0-18.0); Immature Granulocyte Absolute 0.13 K/mm3 (0.00-0.031); Lymphocytes Absolute Auto 0.37 K/mm3 (0.9-3.2); Lymphocytes Percent Auto 2.8 % (18.3-44.2); Mean Corpuscular HGB Conc 32.7 g/dl (32-36); Mean Corpuscular Hemoglobin 30.8 pg (26-34); Mean Platelet Volume 11.3 fl (7.4-10.4); Monocytes Percent Auto 7.3 % (2.6-8.5); Neutrophils Absolute Auto 11.7 K/mm3 (1.3-6.7); Neutrophils Percent Auto 88.7 % (45.5-73.1); Platelet Count Result 153 k/mm3 (150-375); Red Blood Count 4.65 M/mm3 (4.6-6.20); Red Cell Distribution Width 17.1 % (11.5-14.5); White Blood Count 13.1 K/mm3 (4.5-10.0)
[2024-10-16 05:36] LABS: Alveolar/Arterial O2 Gradient 61.1 mmHg; Arterial Blood Gas PEEP 5 cmH2O; Arterial Blood Gas Tidal Volume 450 ml; Arterial Blood Gas Vent Mode CMV; Arterial Blood Gas Ventilator rate 14 /MIN; Base Excess ABG 0.6 mEq/l (+/-2.0); Carboxyhemoglobin 1.3 % THb (0-2.0); Device VENTILATOR; Fractional Inspired Oxygen 25 %; HCO3 ABG 24.1 mEq/l (22.0-26.0); Oxygen Content ABG 19.8 %vol (16.0-22.0); Oxygen Saturation ABG 95.7 % (95.0-100.0); Oxyhemoglobin 93.6 % THb (90.0-100.0); PCO2 ABG 35.4 mmHg (35.0-45.0); PO2 ABG 75.1 mmHg (80.0-100.0); Reduced Hemoglobin 5.1 %THb (0-5.0); Site Drawn ARTLINE
[2024-10-16 06:13] LABS: Anisocytosis 1+; Band Neutrophils Percent 0 % (0-6); Hypochromasia 1+; Platelet Estimate Adequate (Adequate)
[2024-10-16 06:14] LABS: Ovalocytes 1+; Schistocytes Rare
[2024-10-16 06:26] LABS: Alanine Aminotransferase 18 U/L (6-50); Albumin Level 3.8 g/dL (3.5-5.1); Alkaline Phosphatase 145 U/L (38-126); Anion Gap 16 mmol/L (4-12); Aspartate Amino Transferase 30 U/L (17-59); Blood Urea Nitrogen 60 mg/dL (9-20); Calcium 8.6 mg/dL (8.4-10.2); Carbon Dioxide 21 mmol/L (22-30); Chloride 96 mmol/L (98-107); Estimated CRCL calculation 13 ml/min; Estimated Glomerular Filt Rate 14; Glucose 246 mg/dL (65-110); Magnesium 2.4 mg/dL (1.6-2.3); Potassium 4.5 mmol/L (3.4-5.0); Sodium 133 mmol/L (137-145)
[2024-10-16] MEDS: HYDROCORTISONE SODIUM SUCCINATE 100 MG/2 ML VIAL IV PUSH ×3 (06:36→21:28)
[2024-10-16] MEDS: CENTRAL LINE FLUSH 10 ML IV PUSH ×3 (06:40→21:18)
[2024-10-16] MEDS: BUDESONIDE RESPULE NEB 0.5 MG/2 ML AMP INHALATION ×2 (07:42→20:32)
--- NOTE | 2024-10-16 08:58 | P.PNINT_ITS ---
Progress Note: A&P Assessment and Plan (1) Respiratory failure: Code(s): J96.90 - Respiratory failure, unspecified, unspecified whether with hypoxia or hypercapnia Status: Acute Assessment and Plan: Acute respiratory failure likely related to pneumonia, altered mental status, airway protection 10/08: Intubated -currently on CMV mode of ventilation, peep of 5, 30% FiO2 - continue bronchodilators and Pulmicort -chest x-ray reviewed, ventilator adjusted -10/13: off sedation -10/15: Placed patient on pressure support ventilation 8/5 and 30% FiO2, patient did well but had dialysis later the in the evening so could not be extubated 10/16: Place patient on PSV 8/5 and 30% FiO2, tolerating well, anticipate extubation (2) Septic shock: Code(s): A41.9 - Sepsis, unspecified organism; R65.21 - Severe sepsis with septic shock Status: Acute Assessment and Plan: Patient presented with altered mental status, hypotension, lactic acidosis -septic shock likely related to bacteremia, bilateral pneumonia along with influenza -continue ceftriaxone (10/08) -status post azithromycin and vancomycin -10/08: Blood cultures growing strep mitis -10/10 repeat set of blood culture sent and negative till now -TTE and ROBERT are negative for evidence of valve vegetations -patient did receive 1500 mL in IV fluids on had upon admission -status post albumin 25% q.6 hours x4 doses for intravascular volume expansion -patient remains on Levophed but off of epinephrine and vasopressin, maintain MAP > greater than 65 mmHg or SBP greater than 100 mmHg for adequate end organ perfusion -continue hydrocortisone -10/15: added midodrine (3) Bacteremia: Code(s): R78.81 - Bacteremia Status: Acute Assessment and Plan: 10/08: Blood cultures growing strep mitis group 10/10 repeat set of blood culture sent and negative till now -continue antibiotics as above TTE as below ROBERT negative for evidence of vegetation (4) Influenza A: Code(s): J10.1 - Influenza due to other identified influenza virus with other respiratory manifestations Status: Acute Assessment and Plan: Completed a course of renally dosed Tamiflu (5) Pneumonia: Code(s): J18.9 - Pneumonia, unspecified organism Status: Acute Assessment and Plan: Chest x-ray showed pneumonia, CT chest showed pneumonitis, -continue antibiotics as above (6) Altered mental status: Code(s): R41.82 - Altered mental status, unspecified Status: Acute Assessment and Plan: Currently intubated and sedated Head CT was negative for any acute changes at the time presentation (7) End-stage renal disease on hemodialysis: Code(s): N18.6 - End stage renal disease; Z99.2 - Dependence on renal dialysis Status: Acute Assessment and Plan: End-stage renal disease on dialysis (M, W, F) -dialysis per Nephrology. On (8) Diabetes: Qualifiers: Diabetes mellitus type: type 2 Diabetes mellitus long-term insulin use: without long-term use Diabetes mellitus complication status: with kidney complications Diabetes mellitus complication detail: with chronic kidney disease Chronic kidney disease stage: on chronic dialysis Qualified Code(s): E11.22 - Type 2 diabetes mellitus with diabetic chronic kidney disease; N18.6 - End stage renal disease; Z99.2 - Dependence on renal dialysis Code(s): E11.9 - Type 2 diabetes mellitus without complications Status: Chronic Assessment and Plan: Continue current sliding scale and Lantus dose Plan DVT prophylaxis: SCDJay Jay mcwilliams is on hold secondary to thrombocytopenia Stress ulcer prophylaxis: Protonix Nutrition: Tube feeds Code Status: Full code Critical Care Time Spent: 32 minutes Due to a high probability of clinically significant, life threatening deterioration, the patient required my highest level of preparedness to intervene emergently and I personally spent this critical care time directly and personally managing the patient. This critical care time included obtaining a history; examining the patient; pulse oximetry; ordering and review of studies; arranging urgent treatment with development of a management plan; evaluation of patient's response to treatment; frequent reassessment; and discussions with other providers. It was exclusive of separately billable procedures and treating other patients and teaching time. Please see Assessment and Plan section and the rest of the note for further information on patient assessment and treatment This dictation may have been done utilizing a voice recognition system. Attempts have been made to correct errors. However, there may be uncorrected grammatical, spelling, and recognitions errors present. Subjective Date/time seen: 10/16/24 08:58 Interval history: Reason for consult: Altered mental status, generalized weakness, hypotension, shock, acute respiratory failure, Gram-positive cocci in chains bacteremia, influenza A positive, MRSA screen positive 10/08: Intubated 10/16/2024: Patient seen and examined in the ICU, remains on CMV mode of ventilation, peep of 5, 30% FiO2. Patient has been off all sedation since 10/12/2024: Patient opens his eyes and follows simple commands in all extremities, nods to questions, denies any pain at this time. Patient had hemodialysis yesterday with 3000 mL in fluid removal. Currently afebrile. WBC count has increased. Platelets also improved. End-stage renal disease on hemodialysis, anuric . Patient tolerated pressure support ventilation 8/ for a good amount of time, but dialysis was done late in the evening so could not be extubated. Review of Systems Review of Systems: ROS unobtainable: Yes unobtainable due to endotracheal tube, unobtainable due to medical condition and unobtainable due to mental status Exam Narrative: General: Patient is intubated on mechanical ventilation, in no acute distress HEENT:? Pupils equal and reactive bilaterally Neck:? Supple Respiratory:? Coarse breath sounds bilaterally, decreased at bases, no wheezing, adequate air entry Cardiac:? Irregularly irregular, regular rate Abdomen:? Soft, nontender, nondistended, protuberant, hypoactive bowel sounds Extremities:? Bilateral lower extremity edema pitting in nature, palpable pedal pulses Neuro:? Patient is intubated, off sedation since 10/12, more awake this morning, opens his eyes, nods to questions, follows simple commands in all extremities Skin:? Skin is dry and flaky Psych:? Unable to assess at this time Objective Data Vital Signs Vital Signs: Vital Signs - 24 hr 10/15/24 09:30 10/15/24 10:00 10/15/24 10:00 Temperature Pulse Rate 74 76 75 Respiratory Rate 20 Blood Pressure 92/48 L 93/49 L Pulse Oximetry 98 Oxygen Delivery Fraction of Inspired Oxygen 10/15/24 10:00 10/15/24 10:51 10/15/24 12:00 Temperature Pulse Rate 75 74 75 Respiratory Rate Blood Pressure 96/51 L 100/52 L Pulse Oximetry 97 Oxygen Delivery Mechanical Ventilation Fraction of Inspired Oxygen 10/15/24 12:00 10/15/24 12:00 10/15/24 12:00 Temperature 98.4 F Pulse Rate 75 79 Respiratory Rate 20 Blood Pressure 100/52 L Pulse Oximetry 98 Oxygen Delivery Fraction of Inspired Oxygen 30 10/15/24 12:00 10/15/24 12:30 10/15/24 14:00 Temperature Pulse Rate 79 75 79 Respiratory Rate 20 Blood Pressure 101/55 L 99/52 L Pulse Oximetry 97 Oxygen Delivery Mechanical Ventilation Fraction of Inspired Oxygen 30 10/15/24 14:00 10/15/24 14:00 10/15/24 14:19 Temperature Pulse Rate 79 75 81 Respiratory Rate 21 H Blood Pressure 99/52 L 94/51 L Pulse Oximetry 98 Oxygen Delivery Fraction of Inspired Oxygen 10/15/24 14:19 10/15/24 14:23 10/15/24 14:24 Temperature Pulse Rate 81 74 71 Respiratory Rate 22 H Blood Pressure 94/51 L Pulse Oximetry 98 Oxygen Delivery Mechanical Ventilation Fraction of Inspired Oxygen 30 10/15/24 14:39 10/15/24 16:00 10/15/24 16:00 Temperature 98.9 F Pulse Rate 79 73 77 Respiratory Rate 20 22 H Blood Pressure 99/53 L Pulse Oximetry 98 Oxygen Delivery Fraction of Inspired Oxygen 10/15/24 16:00 10/15/24 16:00 10/15/24 16:00 Temperature Pulse Rate 77 77 Respiratory Rate 20 Blood Pressure 99/53 L Pulse Oximetry 97 Oxygen Delivery Mechanical Ventilation Fraction of Inspired Oxygen 30 30 10/15/24 16:50 10/15/24 16:54 10/15/24 17:09 Temperature 97.9 F Pulse Rate 79 78 73 Respiratory Rate 20 Blood Pressure 99/62 L 93/50 L Pulse Oximetry 98 97 Oxygen Delivery Mechanical Ventilation Fraction of Inspired Oxygen 30 10/15/24 17:15 10/15/24 17:25 10/15/24 17:30 Temperature Pulse Rate 79 77 73 Respiratory Rate Blood Pressure 95/52 L 92/45 L 98/52 L Pulse Oximetry Oxygen Delivery Fraction of Inspired Oxygen 10/15/24 17:47 10/15/24 18:00 10/15/24 18:00 Temperature Pulse Rate 78 81 81 Respiratory Rate 20 Blood Pressure 97/52 L 98/51 L Pulse Oximetry 99 Oxygen Delivery Fraction of Inspired Oxygen 10/15/24 18:00 10/15/24 18:00 10/15/24 18:15 Temperature Pulse Rate 81 81 82 Respiratory Rate Blood Pressure 100/63 98/51 L 100/53 L Pulse Oximetry Oxygen Delivery Fraction of Inspired Oxygen 10/15/24 18:30 10/15/24 18:45 10/15/24 19:00 Temperature Pulse Rate 73 89 84 Respiratory Rate Blood Pressure 101/53 L 101/54 L 99/53 L Pulse Oximetry Oxygen Delivery Fraction of Inspired Oxygen 10/15/24 19:00 10/15/24 19:15 10/15/24 19:21 Temperature Pulse Rate 81 80 86 Respiratory Rate 18 Blood Pressure 97/50 L 105/55 L Pulse Oximetry 99 Oxygen Delivery Mechanical Ventilation Fraction of Inspired Oxygen 30 10/15/24 19:22 10/15/24 19:22 10/15/24 19:30 Temperature Pulse Rate 83 83 Respiratory Rate Blood Pressure 109/57 L Pulse Oximetry Oxygen Delivery Fraction of Inspired Oxygen 30 10/15/24 19:45 10/15/24 20:00 10/15/24 20:00 Temperature 98.3 F Pulse Rate 83 79 87 Respiratory Rate 19 Blood Pressure 110/57 L 110/55 L 113/73 Pulse Oximetry 98 Oxygen Delivery Fraction of Inspired Oxygen 10/15/24 20:15 10/15/24 20:20 10/15/24 20:30 Temperature Pulse Rate 77 72 86 Respiratory Rate Blood Pressure 109/55 L 107/56 L Pulse Oximetry 98 Oxygen Delivery Mechanical Ventilation Fraction of Inspired Oxygen 30 10/15/24 20:40 10/15/24 20:56 10/15/24 21:00 Temperature Pulse Rate 78 69 78 Respiratory Rate 19 Blood Pressure 115/59 L 120/61 Pulse Oximetry Oxygen Delivery Fraction of Inspired Oxygen 10/15/24 21:05 10/15/24 21:30 10/15/24 22:00 Temperature 97.9 F Pulse Rate 76 74 78 Respiratory Rate 18 Blood Pressure 110/52 L 110/53 L Pulse Oximetry 98 Oxygen Delivery Fraction of Inspired Oxygen 10/15/24 22:00 10/15/24 22:00 10/15/24 23:00 Temperature 98.7 F Pulse Rate 75 74 71 Respiratory Rate 18 Blood Pressure 110/54 L 108/50 L 99/47 L Pulse Oximetry 98 Oxygen Delivery Fraction of Inspired Oxygen 10/15/24 23:05 10/16/24 00:00 10/16/24 00:00 Temperature Pulse Rate 76 75 75 Respiratory Rate 18 Blood Pressure Pulse Oximetry 98 98 Oxygen Delivery Mechanical Ventilation Mechanical Ventilation Fraction of Inspired Oxygen 30 30 10/16/24 00:00 10/16/24 00:00 10/16/24 01:32 Temperature 97.9 F Pulse Rate 73 71 Respiratory Rate 21 H Blood Pressure 95/58 L 99/46 L Pulse Oximetry 98 Oxygen Delivery Fraction of Inspired Oxygen 30 10/16/24 02:00 10/16/24 02:00 10/16/24 02:00 Temperature 99.1 F Pulse Rate 73 74 75 Respiratory Rate 18 Blood Pressure 99/46 L 90/41 L Pulse Oximetry 96 Oxygen Delivery Fraction of Inspired Oxygen 10/16/24 02:12 10/16/24 02:23 10/16/24 02:30 Temperature Pulse Rate 68 71 73 Respiratory Rate 24 H Blood Pressure 88/40 L Pulse Oximetry 97 Oxygen Delivery Mechanical Ventilation Fraction of Inspired Oxygen 25 10/16/24 03:00 10/16/24 03:12 10/16/24 04:00 Temperature Pulse Rate 68 65 69 Respiratory Rate 19 Blood Pressure 89/41 L 88/41 L Pulse Oximetry 97 Oxygen Delivery Mechanical Ventilation Fraction of Inspired Oxygen 25 10/16/24 04:00 10/16/24 04:00 10/16/24 04:00 Temperature 99.8 F H Pulse Rate 69 68 Respiratory Rate 18 Blood Pressure 92/41 L Pulse Oximetry 96 Oxygen Delivery Fraction of Inspired Oxygen 25 10/16/24 04:00 10/16/24 05:05 10/16/24 05:27 Temperature Pulse Rate 68 69 73 Respiratory Rate Blood Pressure 91/42 L Pulse Oximetry 96 Oxygen Delivery Mechanical Ventilation Fraction of Inspired Oxygen 25 10/16/24 05:27 10/16/24 06:00 10/16/24 07:42 Temperature 99.4 F Pulse Rate 68 70 76 Respiratory Rate 18 Blood Pressure 98/47 L 92/43 L Pulse Oximetry 96 96 Oxygen Delivery Mechanical Ventilation Fraction of Inspired Oxygen 25 10/16/24 07:42 10/16/24 07:56 10/16/24 08:00 Temperature 99.6 F Pulse Rate 76 75 76 Respiratory Rate 23 H 16 20 Blood Pressure 91/42 L Pulse Oximetry 96 Oxygen Delivery Fraction of Inspired Oxygen 10/16/24 08:50 Temperature Pulse Rate 74 Respiratory Rate Blood Pressure Pulse Oximetry 97 Oxygen Delivery Mechanical Ventilation Fraction of Inspired Oxygen 25 Intake/Output Intake/Output: Intake & Output 10/13/24 10/14/24 10/15/24 10/16/24 23:59 23:59 23:59 23:59 Intake Total 1143.2 1574.1 2405.9 885.1 Output Total 3000 3500 3000 100 Balance -1856.8 -1925.9 -594.1 785.1 Meds/Results Medications: Active Medications Generic Name Dose Route Start Last Admin Trade Name Freq PRN Reason Stop Dose Admin Acetaminophen 650 mg 10/08/24 20:49 Acetaminophen 650 Mg Suppository RECTAL Q6H PRN Mild Pain (1-3) or Fever Albuterol/Ipratropium 3 ml 10/09/24 14:00 10/16/24 07:42 Ipratropium 0.5 Mg/Albuterol Sulfate 2.5 Mg Ampul.Neb 3 Ml INHALATION 3 ml Q6HRT CESAR Administration Allopurinol 100 mg 10/09/24 08:00 10/15/24 08:59 Allopurinol 100 Mg Tablet PO 100 mg DAILY@0800 CESAR Administration Apixaban 2.5 mg 10/09/24 09:00 10/15/24 21:39 Apixaban 2.5 Mg Tablet PO 2.5 mg Q12HR CESAR Administration Atorvastatin Calcium 10 mg 10/09/24 09:00 10/15/24 08:59 Atorvastatin 10 Mg Tablet PO 10 mg DAILY CESAR Administration Budesonide 0.5 mg 10/09/24 20:00 10/16/24 07:42 Budesonide Respule Neb 0.5 Mg/2 Ml Amp INHALATION 0.5 mg Q12HRT CESAR Administration Dextrose 12.5 gm 10/08/24 22:06 Dextrose 50% 25 Gm/50 Ml Syringe IV PUSH PRN PRN Hypoglycemia Protocol Glucagon 1 mg 10/08/24 22:06 Glucagon For Inj 1 Mg Vial IM PRN PRN Hypoglycemia Protocol Glucose 15 gm 10/08/24 22:06 Glucose Oral Gel 15 Gm Of Glucse In 37.5 Gm Tube PO PRN PRN Hypoglycemia Protocol Hydrocortisone Sodium Succinate 100 mg 10/09/24 14:30 10/16/24 06:36 Hydrocortisone Sodium Succinate 100 Mg/2 Ml Vial IV PUSH 100 mg Q8HR CESAR Administration Dextrose 1,000 mls @ 100 mls/hr 10/08/24 22:06 Dextrose 5% 1,000 Ml IVPB PRN PRN Hypoglycemia Protocol Ceftriaxone Sodium 2 gm in 100 mls @ 200 mls/hr 10/12/24 11:15 10/15/24 09:30 Rocephin 2 Gm/Ns 100 Ml IVPB 10/17/24 23:59 Infused DAILY CESAR Infusion Norepinephrine Bitartrate 8 mg in 250 mls @ 26.25 mls/hr 10/13/24 05:05 10/16/24 06:21 Levophed 8 Mg/D5w 250 Ml IV CONT Not Given .Q9H32M CESAR Protocol 14 MCG/MIN Albumin Human 50 mls @ 999 mls/hr 10/14/24 06:24 10/15/24 17:30 Albutein IVPB 11/13/24 06:23 Infused Q10M PRN Infusion HYPOTENSION Insulin Aspart 4 - 8 units 10/11/24 12:00 10/16/24 06:21 Insulin Aspart (*Bkc) 100 Units/Ml SUB-Q Not Given Q4H CESAR Protocol Insulin Glargine 35 units 10/16/24 21:00 Insulin Glargine (*Bkc) 100 Units/Ml SUB-Q HS CESAR Midodrine 10 mg 10/15/24 13:00 10/15/24 17:42 Midodrine Hcl 10 Mg Tablet PO 10 mg TID CESAR Administration Multi-Ingred Cream/Lotion/Oil/Oint 1 applic 10/10/24 09:00 10/15/24 21:39 Mineral Oil/White Petrolatum Ointment EACH EYE 1 applic Q12HR CESAR Administration Mupirocin 1 applic 10/09/24 09:00 10/15/24 21:39 Mupirocin 2% Oint 22 Gm Tube EACH NARE 1 applic Q12HR CESAR Administration Pantoprazole Sodium 40 mg 10/09/24 13:45 10/15/24 08:59 Pantoprazole Sodium Iv 40 Mg Vial IV PUSH 40 mg QAM CESAR Administration Polyethylene Glycol 17 gm 10/15/24 10:25 10/15/24 12:10 Polyethylene Glycol 3350 17 Gm Powd.Pack PO 17 gm QAM CESAR Administration Fluticasone/Salmeterol 2 puff 10/09/24 08:00 10/09/24 09:26 Fluticasone/Salmeterol 115-21 Mcg Inhaler 1 Puff INHALATION Not Given Q12HRT CESAR Sevelamer Carbonate 1.6 gm 10/14/24 08:45 10/15/24 17:42 Sevelamer Carbonate 0.8 Gm Oral Powder Packet BY MOUTH 1.6 gm TIDWM CESAR Administration Sodium Chloride 10 ml 10/09/24 14:00 10/16/24 06:40 Central Line Flush IV PUSH 10 ml Q8HR CESAR Administration Sodium Chloride 20 ml 10/09/24 06:24 Central Line Flush IV PUSH PRN PRN after blood draws Radiology Results: ITS Impressions Pelvis X-Ray 10/08/24 22:22 IMPRESSION: As above. Head CT 10/08/24 23:18 IMPRESSION: No acute intracranial findings. Chest CT 10/08/24 23:27 IMPRESSION: 1. Interstitial thickening in the lower lobes which may indicate pneumonitis. Edema is less likely. 2. Cardiomegaly. 3. Cholelithiasis 4. Splenic cysts unchanged. Abdomen X-Ray 10/13/24 15:22 IMPRESSION: Nasogastric tube in good position and ready for immediate use. Chest X-Ray 10/16/24 07:12 Impression: Small left pleural effusion with left lower lobe atelectasis versus pneumonia. Central venous congestive change. Support tubes, as above. Labs Labs: Laboratory Results - last 24 hr 10/15/24 10/15/24 10/15/24 08:56 11:22 12:06 WBC 15.0 H RBC 4.41 L Hgb 13.6 L Hct 42.2 MCV 95.7 MCH 30.8 MCHC 32.2 RDW 16.8 H Plt Count 133 L MPV 11.8 H Immature Gran % (Auto) 0.9 H Neut % (Auto) 89.7 H Lymph % (Auto) 2.7 L Collier % (Auto) 6.5 Eos % (Auto) 0.0 Baso % (Auto) 0.2 Lymph # (Auto) 0.41 L Collier # (Auto) 1.0 H Eos # (Auto) 0.0 Baso # (Auto) 0.0 Abs Immat Gran (auto) 0.13 H Absolute Neuts (auto) 13.5 H Absolute Nucleated RBC 0.000 Band Neutrophils % Not Reportable Nucleated RBC % 0.0 Platelet Estimate Slightly decreased Hypochromasia 1+ Anisocytosis 1+ Ovalocytes 1+ Schistocytes None seen Puncture Site ABG pH ABG pCO2 ABG pO2 ABG PO2/FiO2 Ratio ABG HCO3 ABG O2 Saturation ABG O2 Content ABG Base Excess A-a Gradient Oxyhemoglobin Carboxyhemoglobin Methemoglobin Reduced Hemoglobin Total Hemoglobin O2 Delivery Device O2 Liters/Min Minute Volume Vent Rate Vent Mode FiO2 Tidal Volume PEEP Peak Inspir Pressure Pressure Support Sodium Potassium Chloride Carbon Dioxide Anion Gap BUN Creatinine Estim Creat Clear Calc Estimated GFR Glucose POC Capillary Glucose 238 H 245 H Calcium Phosphorus Magnesium Total Bilirubin AST ALT Alkaline Phosphatase Total Protein Albumin 10/15/24 10/15/24 10/16/24 16:03 21:35 01:58 WBC RBC Hgb Hct MCV MCH MCHC RDW Plt Count MPV Immature Gran % (Auto) Neut % (Auto) Lymph % (Auto) Collier % (Auto) Eos % (Auto) Baso % (Auto) Lymph # (Auto) Collier # (Auto) Eos # (Auto) Baso # (Auto) Abs Immat Gran (auto) Absolute Neuts (auto) Absolute Nucleated RBC Band Neutrophils % Nucleated RBC % Platelet Estimate Hypochromasia Anisocytosis Ovalocytes Schistocytes Puncture Site ABG pH ABG pCO2 ABG pO2 ABG PO2/FiO2 Ratio ABG HCO3 ABG O2 Saturation ABG O2 Content ABG Base Excess A-a Gradient Oxyhemoglobin Carboxyhemoglobin Methemoglobin Reduced Hemoglobin Total Hemoglobin O2 Delivery Device O2 Liters/Min Minute Volume Vent Rate Vent Mode FiO2 Tidal Volume PEEP Peak Inspir Pressure Pressure Support Sodium Potassium Chloride Carbon Dioxide Anion Gap BUN Creatinine Estim Creat Clear Calc Estimated GFR Glucose POC Capillary Glucose 251 H 208 H 177 H Calcium Phosphorus Magnesium Total Bilirubin AST ALT Alkaline Phosphatase Total Protein Albumin 10/16/24 10/16/24 05:21 05:24 WBC 13.1 H RBC 4.65 Hgb 14.3 Hct 43.7 MCV 94.0 MCH 30.8 MCHC 32.7 RDW 17.1 H Plt Count 153 MPV 11.3 H Immature Gran % (Auto) 1.0 H Neut % (Auto) 88.7 H Lymph % (Auto) 2.8 L Collier % (Auto) 7.3 Eos % (Auto) 0.0 Baso % (Auto) 0.2 Lymph # (Auto) 0.37 L Collier # (Auto) 1.0 H Eos # (Auto) 0.0 Baso # (Auto) 0.0 Abs Immat Gran (auto) 0.13 H Absolute Neuts (auto) 11.7 H Absolute Nucleated RBC 0.000 Band Neutrophils % 0 Nucleated RBC % 0.0 Platelet Estimate Adequate Hypochromasia 1+ Anisocytosis 1+ Ovalocytes 1+ Schistocytes Rare Puncture Site Artline ABG pH 7.450 ABG pCO2 35.4 ABG pO2 75.1 L ABG PO2/FiO2 Ratio 3.00 ABG HCO3 24.1 ABG O2 Saturation 95.7 ABG O2 Content 19.8 ABG Base Excess 0.6 A-a Gradient 61.1 Oxyhemoglobin 93.6 Carboxyhemoglobin 1.3 Methemoglobin 0.0 Reduced Hemoglobin 5.1 H Total Hemoglobin 15.0 O2 Delivery Device Ventilator O2 Liters/Min Not Reportable Minute Volume Not Reportable Vent Rate 14 Vent Mode Cmv FiO2 25 Tidal Volume 450 PEEP 5 Peak Inspir Pressure Not Reportable Pressure Support Not Reportable Sodium 133 L Potassium 4.5 Chloride 96 L Carbon Dioxide 21 L Anion Gap 16 H BUN 60 H D Creatinine 4.21 H Estim Creat Clear Calc 13 Estimated GFR 14 L Glucose 246 H POC Capillary Glucose Calcium 8.6 Phosphorus 3.0 Magnesium 2.4 H Total Bilirubin 2.0 H AST 30 ALT 18 Alkaline Phosphatase 145 H Total Protein 7.0 Albumin 3.8 Quality VTE Prophylaxis VTE prophylaxis: mechanical ordered
[2024-10-16] MEDS: INSULIN GLARGINE (*BKC) 100 UNITS/ML 10 UNITS SUB-Q (09:01)
[2024-10-16] MEDS: INSULIN ASPART (*BKC) 100 UNITS/ML SUB-Q (09:01)
[2024-10-16] MEDS: polyethylene glycoL 3350 17 GM POWD.PACK PO (09:02)
[2024-10-16] MEDS: allopurinoL 100 MG TABLET PO (09:02)
[2024-10-16] MEDS: ATORVASTATIN 10 MG TABLET PO (09:02)
[2024-10-16] MEDS: SEVELAMER CARBONATE 0.8 GM ORAL POWDER PACKET 1.6 GM BY MOUTH (09:02)
[2024-10-16] MEDS: MIDODRINE HCL 10 MG TABLET PO (09:02)
[2024-10-16] MEDS: PANTOPRAZOLE SODIUM IV 40 MG VIAL IV PUSH (09:02)
[2024-10-16] MEDS: APIXABAN 2.5 MG TABLET PO (09:02)
[2024-10-16] MEDS: MUPIROCIN 2% OINT 22 GM TUBE 1 APPLIC EACH NARE ×2 (09:03→21:17)
[2024-10-16] MEDS: MINERAL OIL/WHITE PETROLATUM OINTMENT 1 APPLIC EACH EYE (09:03)
[2024-10-16] MEDS: cefTRIAXone 2 GM/NS 100 ML 2 GM/100 ML BAG IVPB (09:03)
[2024-10-16 10:56] LABS: Alveolar/Arterial O2 Gradient 70.8 mmHg; Base Excess ABG 0.1 mEq/l (+/-2.0); Fractional Inspired Oxygen 25 %; HCO3 ABG 23.9 mEq/l (22.0-26.0); Oxygen Saturation ABG 93.2 % (95.0-100.0); Oxyhemoglobin 90.4 % THb (90.0-100.0); PCO2 ABG 36.5 mmHg (35.0-45.0); PO2 ABG 64.1 mmHg (80.0-100.0); PO2 FiO2 Ratio Arterial Blood 2.56 %; Site Drawn ARTLINE; pH ABG 7.434 (7.350-7.450)
[2024-10-16 10:57] LABS: Arterial Blood Gas PEEP 5 cmH2O; Arterial Blood Gas Pressure Support 8 cmH2O; Arterial Blood Gas Vent Mode SPONTANEOUS; Device VENTILATOR
[2024-10-16 10:59] LABS: Glucose Point of Care 254 mg/dl (65-105)
[2024-10-16] MEDS: NOREPINEPHRINE 8 MG/D5W 250 ML 8 MG/250 ML BAG 26.25 MG IV CONT (11:00)
--- NOTE | 2024-10-16 11:06 | P.PNNP_ITS ---
Progress Note: A&P Assessment and Plan (1) End-stage renal disease (ESRD): Code(s): N18.6 - End stage renal disease Status: Chronic Assessment and Plan: * HD Has been done 6 days in a row: 3 dialyses, 3 ultrafiltrations * Chest x-ray not completely clear. * Blood pressure is still soft on of . * Will hold off on another dialysis today. See how he looks after extubation. * Potassium looks okay (2) Septic shock: Code(s): A41.9 - Sepsis, unspecified organism; R65.21 - Severe sepsis with septic shock Status: Acute Assessment and Plan: * as noted on presentation - AMS + acute on chronic hypotension + lactic acidosis * complicated by chronic hypotension at baseline (on midodrine at baseline) * presumed to be secondary to bacteremia, pneumonia and influenza * culture data noted: * blood cultures (on 10/08) with Streptococcus mitis * blood cultures (on 10/10) with no growth to date * On Levophed now still. * Adding midodrine to help see if we can wean this * Echo results noted (see #4) -- no evidence of endocarditis * stress dose steroids * Blood pressure in the mid 90s to low 100s (3) Acute respiratory failure: Code(s): J96.00 - Acute respiratory failure, unspecified whether with hypoxia or h ypercapnia Status: Acute Assessment and Plan: * multifactorial: * pneumonia * altered mental status * need for airway protection * fluid * intubated on 10/08 in ER * on bronchodilators * fluid removal with dialysis as tolerated * dry ultrafiltration on 10/12 * dry ultrafiltration on 10/14 * HD on 10/11, , (4) Bacteremia: Code(s): R78.81 - Bacteremia Status: Acute Assessment and Plan: * 10/08 blood cultures with Streptococcus mitis * 10/10 repeat set of blood culture with growth to date * TTE (10/11 )results noted: * left ventricular systolic function is normal, estimated at > 70% * left ventricular diastolic function is grade II diastolic dysfunction * right ventricular systolic function is reduced. * flattening of the septum in diastole and systole consistent with right ventricular volume and pressure overload * left and right atrial chamber dimension is severely enlarged * mild mitral valve regurgitation * moderate to severe tricuspid valve regurgitation. * pulmonary hypertension, estimated pulmonary arterial systolic pressureis 66 mmHg * cannot rule out vegetations on this study * ROBERT (10/13): * no vegetations noted on the mitral valve -- trace mitral valve regurgitation * no vegetations noted on tricuspid valve -- moderate tricuspid valve regurgitation * no vegetations on the aortic valve -- aortic valve is trileaflet * pulmonary valve appears grossly normal without vegetations * interatrial septum is anatomically normal without evidence of shunt with color-flow Doppler * mild atherosclerotic disease in the aorta. * on ceftriaxone * see #2 (5) Pneumonia: Code(s): J18.9 - Pneumonia, unspecified organism Status: Acute Assessment and Plan: * suggested by recent imaging (CXR + CT scan) * on ceftriaxone (6) Influenza A: Code(s): J10.1 - Influenza due to other identified influenza virus with other respiratory manifestations Status: Acute Assessment and Plan: * as noted by testing in ER * completed course of Tamiflu (renally dosed) (7) Altered mental status: Code(s): R41.82 - Altered mental status, unspecified Status: Acute Assessment and Plan: * noted in ER prior to intubation * presumably due to acute illness (infection/sepsis/shock...etc) * negative head CT * reassess once extubated (8) Anemia: Qualifiers: Anemia type: unspecified type Qualified Code(s): D64.9 - Anemia, unspecified Code(s): D64.9 - Anemia, unspecified Status: Chronic Assessment and Plan: * due to ESRD * hold Retacrit since Hgb > 11 * follow trend of H/H (9) Diabetes: Qualifiers: Diabetes mellitus type: type 2 Diabetes mellitus custodial insulin use: without terminologist use Diabetes mellitus complication status: with kidney com plications Diabetes mellitus complication detail: with chronic kidney disease Chronic kidney disease stage: on chronic dialysis Qualified Code(s): E11.22 - Type 2 diabetes mellitus with diabetic chronic kidney disease; N18.6 - End stage renal disease; Z99.2 - Dependence on renal dialysis Code(s): E11.9 - Type 2 diabetes mellitus without complications Status: Chronic Assessment and Plan: * follow accu-cheks * glycemic control per hospitalist/cotton jammer Subjective Date/time seen: 10/16/24 11:06 Interval history: patient is a little more awake. Sedatives were discontinued. He acknowledged my presence but did not interact very much. Family is in the room. He is still intubated. Exam Narrative: General: elderly male intubated and on mechanical ventilation Heart: IRRR, normal S1 and S2; no rub or gallop Lungs: Breath sounds symmetric and mildly coarse Abdomen: soft, nontender, nondistended, positive bowel sounds Extremities: no cyanosis or clubbing; chonic edema Skin: no rash Objective Data Vital Signs Vital Signs: Vital Signs - 24 hr 10/15/24 12:00 10/15/24 12:00 10/15/24 12:00 Temperature 98.4 F Pulse Rate 75 75 Respiratory Rate 20 Blood Pressure 100/52 L 100/52 L Pulse Oximetry 98 Oxygen Delivery Fraction of Inspired Oxygen 30 10/15/24 12:00 10/15/24 12:00 10/15/24 12:30 Temperature Pulse Rate 79 79 75 Respiratory Rate 20 Blood Pressure 101/55 L Pulse Oximetry 97 Oxygen Delivery Mechanical Ventilation Fraction of Inspired Oxygen 30 10/15/24 14:00 10/15/24 14:00 10/15/24 14:00 Temperature Pulse Rate 79 79 75 Respiratory Rate 21 H Blood Pressure 99/52 L 99/52 L Pulse Oximetry 98 Oxygen Delivery Fraction of Inspired Oxygen 10/15/24 14:19 10/15/24 14:19 10/15/24 14:23 Temperature Pulse Rate 81 81 74 Respiratory Rate 22 H Blood Pressure 94/51 L 94/51 L Pulse Oximetry Oxygen Delivery Fraction of Inspired Oxygen 10/15/24 14:24 10/15/24 14:39 10/15/24 16:00 Temperature Pulse Rate 71 79 73 Respiratory Rate 20 Blood Pressure Pulse Oximetry 98 Oxygen Delivery Mechanical Ventilation Fraction of Inspired Oxygen 30 10/15/24 16:00 10/15/24 16:00 10/15/24 16:00 Temperature 98.9 F Pulse Rate 77 77 Respiratory Rate 22 H 20 Blood Pressure 99/53 L Pulse Oximetry 98 97 Oxygen Delivery Mechanical Ventilation Fraction of Inspired Oxygen 30 30 10/15/24 16:00 10/15/24 16:50 10/15/24 16:54 Temperature 97.9 F Pulse Rate 77 79 78 Respiratory Rate 20 Blood Pressure 99/53 L 99/62 L Pulse Oximetry 98 97 Oxygen Delivery Mechanical Ventilation Fraction of Inspired Oxygen 30 10/15/24 17:09 10/15/24 17:15 10/15/24 17:25 Temperature Pulse Rate 73 79 77 Respiratory Rate Blood Pressure 93/50 L 95/52 L 92/45 L Pulse Oximetry Oxygen Delivery Fraction of Inspired Oxygen 10/15/24 17:30 10/15/24 17:47 10/15/24 18:00 Temperature Pulse Rate 73 78 81 Respiratory Rate Blood Pressure 98/52 L 97/52 L Pulse Oximetry Oxygen Delivery Fraction of Inspired Oxygen 10/15/24 18:00 10/15/24 18:00 10/15/24 18:00 Temperature Pulse Rate 81 81 81 Respiratory Rate 20 Blood Pressure 98/51 L 100/63 98/51 L Pulse Oximetry 99 Oxygen Delivery Fraction of Inspired Oxygen 10/15/24 18:15 10/15/24 18:30 10/15/24 18:45 Temperature Pulse Rate 82 73 89 Respiratory Rate Blood Pressure 100/53 L 101/53 L 101/54 L Pulse Oximetry Oxygen Delivery Fraction of Inspired Oxygen 10/15/24 19:00 10/15/24 19:00 10/15/24 19:15 Temperature Pulse Rate 84 81 80 Respiratory Rate Blood Pressure 99/53 L 97/50 L 105/55 L Pulse Oximetry Oxygen Delivery Fraction of Inspired Oxygen 10/15/24 19:21 10/15/24 19:22 10/15/24 19:22 Temperature Pulse Rate 86 83 Respiratory Rate 18 Blood Pressure Pulse Oximetry 99 Oxygen Delivery Mechanical Ventilation Fraction of Inspired Oxygen 30 30 10/15/24 19:30 10/15/24 19:45 10/15/24 20:00 Temperature Pulse Rate 83 83 79 Respiratory Rate Blood Pressure 109/57 L 110/57 L 110/55 L Pulse Oximetry Oxygen Delivery Fraction of Inspired Oxygen 10/15/24 20:00 10/15/24 20:15 10/15/24 20:20 Temperature 98.3 F Pulse Rate 87 77 72 Respiratory Rate 19 Blood Pressure 113/73 109/55 L Pulse Oximetry 98 98 Oxygen Delivery Mechanical Ventilation Fraction of Inspired Oxygen 30 10/15/24 20:30 10/15/24 20:40 10/15/24 20:56 Temperature Pulse Rate 86 78 69 Respiratory Rate 19 Blood Pressure 107/56 L 115/59 L Pulse Oximetry Oxygen Delivery Fraction of Inspired Oxygen 10/15/24 21:00 10/15/24 21:05 10/15/24 21:30 Temperature 97.9 F Pulse Rate 78 76 74 Respiratory Rate 18 Blood Pressure 120/61 110/52 L 110/53 L Pulse Oximetry 98 Oxygen Delivery Fraction of Inspired Oxygen 10/15/24 22:00 10/15/24 22:00 10/15/24 22:00 Temperature 98.7 F Pulse Rate 78 75 74 Respiratory Rate 18 Blood Pressure 110/54 L 108/50 L Pulse Oximetry 98 Oxygen Delivery Fraction of Inspired Oxygen 10/15/24 23:00 10/15/24 23:05 10/16/24 00:00 Temperature Pulse Rate 71 76 75 Respiratory Rate 18 Blood Pressure 99/47 L Pulse Oximetry 98 98 Oxygen Delivery Mechanical Ventilation Mechanical Ventilation Fraction of Inspired Oxygen 30 30 10/16/24 00:00 10/16/24 00:00 10/16/24 00:00 Temperature 97.9 F Pulse Rate 75 73 Respiratory Rate 21 H Blood Pressure 95/58 L Pulse Oximetry 98 Oxygen Delivery Fraction of Inspired Oxygen 30 10/16/24 01:32 10/16/24 02:00 10/16/24 02:00 Temperature Pulse Rate 71 73 74 Respiratory Rate Blood Pressure 99/46 L 99/46 L Pulse Oximetry Oxygen Delivery Fraction of Inspired Oxygen 10/16/24 02:00 10/16/24 02:12 10/16/24 02:23 Temperature 99.1 F Pulse Rate 75 68 71 Respiratory Rate 18 24 H Blood Pressure 90/41 L Pulse Oximetry 96 97 Oxygen Delivery Mechanical Ventilation Fraction of Inspired Oxygen 25 10/16/24 02:30 10/16/24 03:00 10/16/24 03:12 Temperature Pulse Rate 73 68 65 Respiratory Rate Blood Pressure 88/40 L 89/41 L 88/41 L Pulse Oximetry Oxygen Delivery Fraction of Inspired Oxygen 10/16/24 04:00 10/16/24 04:00 10/16/24 04:00 Temperature Pulse Rate 69 69 Respiratory Rate 19 Blood Pressure Pulse Oximetry 97 Oxygen Delivery Mechanical Ventilation Fraction of Inspired Oxygen 25 10/16/24 04:00 10/16/24 04:00 10/16/24 05:05 Temperature 99.8 F H Pulse Rate 68 68 69 Respiratory Rate 18 Blood Pressure 92/41 L 91/42 L Pulse Oximetry 96 96 Oxygen Delivery Mechanical Ventilation Fraction of Inspired Oxygen 10/16/24 05:27 10/16/24 05:27 10/16/24 06:00 Temperature 99.4 F Pulse Rate 73 68 70 Respiratory Rate 18 Blood Pressure 98/47 L 92/43 L Pulse Oximetry 96 Oxygen Delivery Fraction of Inspired Oxygen 10/16/24 07:42 10/16/24 07:42 10/16/24 07:56 Temperature Pulse Rate 76 76 75 Respiratory Rate 23 H 16 Blood Pressure Pulse Oximetry 96 Oxygen Delivery Mechanical Ventilation Fraction of Inspired Oxygen 25 10/16/24 08:00 10/16/24 08:00 10/16/24 08:50 Temperature 99.6 F Pulse Rate 76 74 74 Respiratory Rate 20 Blood Pressure 91/42 L 90/43 L Pulse Oximetry 96 97 Oxygen Delivery Mechanical Ventilation Fraction of Inspired Oxygen 25 10/16/24 10:44 Temperature Pulse Rate 79 Respiratory Rate Blood Pressure Pulse Oximetry 98 Oxygen Delivery Mechanical Ventilation Fraction of Inspired Oxygen 25 Intake/Output Intake/Output: Intake & Output 10/13/24 10/14/24 10/15/24 10/16/24 23:59 23:59 23:59 23:59 Intake Total 1143.2 1574.1 2405.9 937.6 Output Total 3000 3500 3000 100 Balance -1856.8 -1925.9 -594.1 837.6 Meds/Results Medications: Active Medications Generic Name Dose Route Start Last Admin Trade Name Freq PRN Reason Stop Dose Admin Acetaminophen 650 mg 10/08/24 20:49 Acetaminophen 650 Mg Suppository RECTAL Q6H PRN Mild Pain (1-3) or Fever Albuterol/Ipratropium 3 ml 10/09/24 14:00 10/16/24 07:42 Ipratropium 0.5 Mg/Albuterol Sulfate 2.5 Mg Ampul.Neb 3 Ml INHALATION 3 ml Q6HRT CESAR Administration Allopurinol 100 mg 10/09/24 08:00 10/16/24 09:02 Allopurinol 100 Mg Tablet PO 100 mg DAILY@0800 CESAR Administration Apixaban 2.5 mg 10/09/24 09:00 10/16/24 09:02 Apixaban 2.5 Mg Tablet PO 2.5 mg Q12HR CESAR Administration Atorvastatin Calcium 10 mg 10/09/24 09:00 10/16/24 09:02 Atorvastatin 10 Mg Tablet PO 10 mg DAILY CESAR Administration Budesonide 0.5 mg 10/09/24 20:00 10/16/24 07:42 Budesonide Respule Neb 0.5 Mg/2 Ml Amp INHALATION 0.5 mg Q12HRT CESAR Administration Dextrose 12.5 gm 10/08/24 22:06 Dextrose 50% 25 Gm/50 Ml Syringe IV PUSH PRN PRN Hypoglycemia Protocol Glucagon 1 mg 10/08/24 22:06 Glucagon For Inj 1 Mg Vial IM PRN PRN Hypoglycemia Protocol Glucose 15 gm 10/08/24 22:06 Glucose Oral Gel 15 Gm Of Glucse In 37.5 Gm Tube PO PRN PRN Hypoglycemia Protocol Hydrocortisone Sodium Succinate 100 mg 10/09/24 14:30 10/16/24 06:36 Hydrocortisone Sodium Succinate 100 Mg/2 Ml Vial IV PUSH 100 mg Q8HR CESAR Administration Dextrose 1,000 mls @ 100 mls/hr 10/08/24 22:06 Dextrose 5% 1,000 Ml IVPB PRN PRN Hypoglycemia Protocol Ceftriaxone Sodium 2 gm in 100 mls @ 200 mls/hr 10/12/24 11:15 10/16/24 09:03 Rocephin 2 Gm/Ns 100 Ml IVPB 10/17/24 23:59 200 mls/hr DAILY CESAR Administration Norepinephrine Bitartrate 8 mg in 250 mls @ 26.25 mls/hr 10/13/24 05:05 10/16/24 08:00 Levophed 8 Mg/D5w 250 Ml IV CONT 14 mcg/min .Q9H32M CESAR 26.25 mls/hr Titration Protocol 14 MCG/MIN Albumin Human 50 mls @ 999 mls/hr 10/14/24 06:24 10/15/24 17:30 Albutein IVPB 11/13/24 06:23 Infused Q10M PRN Infusion HYPOTENSION Insulin Aspart 4 - 8 units 10/11/24 12:00 10/16/24 09:01 Insulin Aspart (*Bkc) 100 Units/Ml SUB-Q 5 units Q4H CESAR Administration Protocol Insulin Glargine 35 units 10/16/24 21:00 Insulin Glargine (*Bkc) 100 Units/Ml SUB-Q HS CESAR Midodrine 10 mg 10/15/24 13:00 10/16/24 09:02 Midodrine Hcl 10 Mg Tablet PO 10 mg TID CESAR Administration Multi-Ingred Cream/Lotion/Oil/Oint 1 applic 10/10/24 09:00 10/16/24 09:03 Mineral Oil/White Petrolatum Ointment EACH EYE 1 applic Q12HR CESAR Administration Mupirocin 1 applic 10/09/24 09:00 10/16/24 09:03 Mupirocin 2% Oint 22 Gm Tube EACH NARE 1 applic Q12HR CESAR Administration Pantoprazole Sodium 40 mg 10/09/24 13:45 10/16/24 09:02 Pantoprazole Sodium Iv 40 Mg Vial IV PUSH 40 mg QAM CESAR Administration Polyethylene Glycol 17 gm 10/15/24 10:25 10/16/24 09:02 Polyethylene Glycol 3350 17 Gm Powd.Pack PO 17 gm QAM CESAR Administration Fluticasone/Salmeterol 2 puff 10/09/24 08:00 10/09/24 09:26 Fluticasone/Salmeterol 115-21 Mcg Inhaler 1 Puff INHALATION Not Given Q12HRT CESAR Sevelamer Carbonate 1.6 gm 10/14/24 08:45 10/16/24 09:02 Sevelamer Carbonate 0.8 Gm Oral Powder Packet BY MOUTH 1.6 gm TIDWM CESAR Administration Sodium Chloride 10 ml 10/09/24 14:00 10/16/24 06:40 Central Line Flush IV PUSH 10 ml Q8HR CESAR Administration Sodium Chloride 20 ml 10/09/24 06:24 Central Line Flush IV PUSH PRN PRN after blood draws Radiology Results: ITS Impressions Pelvis X-Ray 10/08/24 22:22 IMPRESSION: As above. Head CT 10/08/24 23:18 IMPRESSION: No acute intracranial findings. Chest CT 10/08/24 23:27 IMPRESSION: 1. Interstitial thickening in the lower lobes which may indicate pneumonitis. Edema is less likely. 2. Cardiomegaly. 3. Cholelithiasis 4. Splenic cysts unchanged. Abdomen X-Ray 10/13/24 15:22 IMPRESSION: Nasogastric tube in good position and ready for immediate use. Chest X-Ray 10/16/24 07:12 Impression: Small left pleural effusion with left lower lobe atelectasis versus pneumonia. Central venous congestive change. Support tubes, as above. Labs Labs: Laboratory Results - last 24 hr 10/15/24 10/15/24 10/15/24 11:22 12:06 16:03 WBC 15.0 H RBC 4.41 L Hgb 13.6 L Hct 42.2 MCV 95.7 MCH 30.8 MCHC 32.2 RDW 16.8 H Plt Count 133 L MPV 11.8 H Immature Gran % (Auto) 0.9 H Neut % (Auto) 89.7 H Lymph % (Auto) 2.7 L [place] % (Auto) 6.5 Eos % (Auto) 0.0 Baso % (Auto) 0.2 Lymph # (Auto) 0.41 L [place] # (Auto) 1.0 H Eos # (Auto) 0.0 Baso # (Auto) 0.0 Abs Immat Gran (auto) 0.13 H Absolute Neuts (auto) 13.5 H Absolute Nucleated RBC 0.000 Band Neutrophils % Not Reportable Nucleated RBC % 0.0 Platelet Estimate Slightly decreased Hypochromasia 1+ Anisocytosis 1+ Ovalocytes 1+ Schistocytes None seen Puncture Site ABG pH ABG pCO2 ABG pO2 ABG PO2/FiO2 Ratio ABG HCO3 ABG O2 Saturation ABG O2 Content ABG Base Excess A-a Gradient Oxyhemoglobin Carboxyhemoglobin Methemoglobin Reduced Hemoglobin Total Hemoglobin O2 Delivery Device O2 Liters/Min Minute Volume Vent Rate Vent Mode FiO2 Tidal Volume PEEP Peak Inspir Pressure Pressure Support Sodium Potassium Chloride Carbon Dioxide Anion Gap BUN Creatinine Estim Creat Clear Calc Estimated GFR Glucose POC Capillary Glucose 245 H 251 H Calcium Phosphorus Magnesium Total Bilirubin AST ALT Alkaline Phosphatase Total Protein Albumin 10/15/24 10/16/24 10/16/24 21:35 01:58 05:21 WBC 13.1 H RBC 4.65 Hgb 14.3 Hct 43.7 MCV 94.0 MCH 30.8 MCHC 32.7 RDW 17.1 H Plt Count 153 MPV 11.3 H Immature Gran % (Auto) 1.0 H Neut % (Auto) 88.7 H Lymph % (Auto) 2.8 L [place] % (Auto) 7.3 Eos % (Auto) 0.0 Baso % (Auto) 0.2 Lymph # (Auto) 0.37 L [place] # (Auto) 1.0 H Eos # (Auto) 0.0 Baso # (Auto) 0.0 Abs Immat Gran (auto) 0.13 H Absolute Neuts (auto) 11.7 H Absolute Nucleated RBC 0.000 Band Neutrophils % 0 Nucleated RBC % 0.0 Platelet Estimate Adequate Hypochromasia 1+ Anisocytosis 1+ Ovalocytes 1+ Schistocytes Rare Puncture Site ABG pH ABG pCO2 ABG pO2 ABG PO2/FiO2 Ratio ABG HCO3 ABG O2 Saturation ABG O2 Content ABG Base Excess A-a Gradient Oxyhemoglobin Carboxyhemoglobin Methemoglobin Reduced Hemoglobin Total Hemoglobin O2 Delivery Device O2 Liters/Min Minute Volume Vent Rate Vent Mode FiO2 Tidal Volume PEEP Peak Inspir Pressure Pressure Support Sodium 133 L Potassium 4.5 Chloride 96 L Carbon Dioxide 21 L Anion Gap 16 H BUN 60 H D Creatinine 4.21 H Estim Creat Clear Calc 13 Estimated GFR 14 L Glucose 246 H POC Capillary Glucose 208 H 177 H Calcium 8.6 Phosphorus 3.0 Magnesium 2.4 H Total Bilirubin 2.0 H AST 30 ALT 18 Alkaline Phosphatase 145 H Total Protein 7.0 Albumin 3.8 10/16/24 10/16/24 10/16/24 05:24 08:56 10:53 WBC RBC Hgb Hct MCV MCH MCHC RDW Plt Count MPV Immature Gran % (Auto) Neut % (Auto) Lymph % (Auto) [place] % (Auto) Eos % (Auto) Baso % (Auto) Lymph # (Auto) [place] # (Auto) Eos # (Auto) Baso # (Auto) Abs Immat Gran (auto) Absolute Neuts (auto) Absolute Nucleated RBC Band Neutrophils % Nucleated RBC % Platelet Estimate Hypochromasia Anisocytosis Ovalocytes Schistocytes Puncture Site Artline Artline ABG pH 7.450 7.434 ABG pCO2 35.4 36.5 ABG pO2 75.1 L 64.1 L ABG PO2/FiO2 Ratio 3.00 2.56 ABG HCO3 24.1 23.9 ABG O2 Saturation 95.7 93.2 L ABG O2 Content 19.8 19.0 ABG Base Excess 0.6 0.1 A-a Gradient 61.1 70.8 Oxyhemoglobin 93.6 90.4 Carboxyhemoglobin 1.3 Methemoglobin 0.0 Reduced Hemoglobin 5.1 H Total Hemoglobin 15.0 15.0 O2 Delivery Device Ventilator Ventilator O2 Liters/Min Not Reportable Not Reportable Minute Volume Not Reportable Not Reportable Vent Rate 14 Not Reportable Vent Mode Cmv Spontaneous FiO2 25 25 Tidal Volume 450 Not Reportable PEEP 5 5 Peak Inspir Pressure Not Reportable Not Reportable Pressure Support Not Reportable 8 Sodium Potassium Chloride Carbon Dioxide Anion Gap BUN Creatinine Estim Creat Clear Calc Estimated GFR Glucose POC Capillary Glucose 254 H Calcium Phosphorus Magnesium Total Bilirubin AST ALT Alkaline Phosphatase Total Protein Albumin
--- NOTE | 2024-10-16 11:35 | PCRCNOTE ---
Patient extubated @ 1105 to a 2L NC. RN present during encounter with RT.
[2024-10-16 12:53] LABS: Glucose Point of Care 188 mg/dl (65-105)
--- NOTE | 2024-10-16 16:11 | PM.IMPN ---
Progress Note: A&P Assessment and Plan (1) Sepsis: Code(s): A41.9 - Sepsis, unspecified organism Status: Acute (2) Influenza: Code(s): J11.1 - Influenza due to unidentified influenza virus with other respiratory manifestations Status: Acute (3) Pneumonia: Code(s): J18.9 - Pneumonia, unspecified organism Status: Acute (4) Altered mental status: Code(s): R41.82 - Altered mental status, unspecified Status: Acute (5) End-stage renal disease on hemodialysis: Code(s): N18.6 - End stage renal disease; Z99.2 - Dependence on renal dialysis Status: Acute (6) Type 2 diabetes mellitus with diabetic neuropathy: Qualifiers: 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 Labs, imaging, EKG, and all reports were personally reviewed. He meets sepsis criteria with hypotension, low-grade fever, bandemia, lactic acidosis, and altered mental status in the setting of infection. He remained hypotensive following a 1.5 L normal saline bolus (more fluids were not given due to his end-stage renal disease) and he has been started on vasopressors with a target MAP of at least 65. He tested positive for influenza A and chest x-ray shows findings of possible pneumonia for which he has been started on oseltamivir and azithromycin, ceftriaxone, and vancomycin. MRSA nasal screen pending. Sputum culture ordered. There were no reports of obvious focal deficits on exam in the ED and his altered mental status may very well be related to sepsis, influenza, and hypotension. Brain CT was without acute findings. Initiate sliding scale insulin, Accu-Cheks, and hypoglycemic protocol. He will be due for dialysis on Friday. His medications will be reviewed and resumed as appropriate. Findings and treatment plan were discussed with the patient's . Questions were solicited and answered to satisfaction. The patient's medical management will be taken over by the hospitalist team in a.m. patient presented with hypotension and confusion, patient was intubated and on ventilator, patient is receiving IVF and on pressor, discussed with traffic assistant patient blood pressure is improving and his off pressors, patient is found to have Influenza A treated with Tamiflu patient's and son are present in the room, on 10/13 patient had ROBERT there is no evidence endocarditis, patient is clinically improving and discussed with traffic assistant plan give weaning trial tomorrow, patient is being prepared to have HD today, plan is to remove 3L, patient is seen by traffic assistant and further recommendation to follow. Subjective Date/time seen: 10/16/24 16:11 Interval history: Altered mental status. H&P-Narrative: This is an 84-year-old male with end-stage renal disease on hemodialysis, congestive heart failure, pulmonary hypertension, type 2 diabetes mellitus, atrial fibrillation on anticoagulation, hypertension, chronic anemia, and other comorbidities who presented to the emergency department via EMS for evaluation of altered mental status after dialysis. He was intubated in the emergency department and the following history is obtained from the patient's as well as review of his electronic medical records. He went to dialysis at 05:00 and completed a session. His that time he has reportedly been increasingly confused, mumbling to himself and not making any sense. In the ED his only complaint was that of not feeling well but he did not elaborate. reports that he had a bit of a cough yesterday which she believes was nonproductive. There were no reports of fever, cold and flu symptoms, vomiting, or diarrhea. In the ED: Vital signs on arrival include a temperature of 99.8?, blood pressure 72/37, pulse 87, respiratory 22, SpO2 95%. Labs were significant for WBC count of 7.9 with 10 bands noted on manual differential, sodium 136, chloride 92, carbon dioxide 34, BUN 26, creatinine 3.68, lactic acid 2.9, calcium 7.9, total bilirubin 2.1. He tested positive for influenza A. Chest x-ray showed bilateral social pneumonitis versus pulmonary edema. Blood pressure continue to drift down words and he was given a 1500 mL bolus of normal saline without much improvement. The decision was made to put in the central line and start the patient on vasopressors however the patient had difficulties lying still for central line placement and he was sedated and eventually intubated and he is being admitted to the ICU in this setting with hypotension, influenza, pneumonia, and altered mental status. patient presented with hypotension and confusion, patient was intubated and on ventilator, patient is receiving IVF and on pressor, discussed with traffic assistant patient blood pressure is improving and his off pressors, patient is found to have Influenza A treated with Tamiflu patient's and son are present in the room, on 10/13 patient had ROBERT there is no evidence endocarditis, patient is clinically improving and discussed with traffic assistant plan give weaning trial, today patient was extubated and tolerating, patient and daughter are present, patient is seen by traffic assistant and further recommendation to follow. Review of Systems Review of Systems: ROS unobtainable: Yes unobtainable due to medical condition and unobtainable due to mental status Exam Narrative: Patient is comfortable, NAD HEENT: clear LUNGS:CTA HEART: RR S1S2 ABD: BS+, Soft and nontender Lower extremities: no edema SKIN: nonjaundiced Neuro: still somewhat sedated Objective Data Vital Signs Vital Signs: Vital Signs - 24 hr 10/15/24 16:50 10/15/24 16:54 10/15/24 17:09 Temperature 36.6 C Pulse Rate 79 78 73 Respiratory Rate 20 Blood Pressure 99/62 L 93/50 L Pulse Oximetry 98 97 Oxygen Delivery Mechanical Ventilation Fraction of Inspired Oxygen 30 10/15/24 17:15 10/15/24 17:25 10/15/24 17:30 Temperature Pulse Rate 79 77 73 Respiratory Rate Blood Pressure 95/52 L 92/45 L 98/52 L Pulse Oximetry Oxygen Delivery Fraction of Inspired Oxygen 10/15/24 17:47 10/15/24 18:00 10/15/24 18:00 Temperature Pulse Rate 78 81 81 Respiratory Rate 20 Blood Pressure 97/52 L 98/51 L Pulse Oximetry 99 Oxygen Delivery Fraction of Inspired Oxygen 10/15/24 18:00 10/15/24 18:00 10/15/24 18:15 Temperature Pulse Rate 81 81 82 Respiratory Rate Blood Pressure 100/63 98/51 L 100/53 L Pulse Oximetry Oxygen Delivery Fraction of Inspired Oxygen 10/15/24 18:30 10/15/24 18:45 10/15/24 19:00 Temperature Pulse Rate 73 89 84 Respiratory Rate Blood Pressure 101/53 L 101/54 L 99/53 L Pulse Oximetry Oxygen Delivery Fraction of Inspired Oxygen 10/15/24 19:00 10/15/24 19:15 10/15/24 19:21 Temperature Pulse Rate 81 80 86 Respiratory Rate 18 Blood Pressure 97/50 L 105/55 L Pulse Oximetry 99 Oxygen Delivery Mechanical Ventilation Fraction of Inspired Oxygen 30 10/15/24 19:22 10/15/24 19:22 10/15/24 19:30 Temperature Pulse Rate 83 83 Respiratory Rate Blood Pressure 109/57 L Pulse Oximetry Oxygen Delivery Fraction of Inspired Oxygen 30 10/15/24 19:45 10/15/24 20:00 10/15/24 20:00 Temperature 36.8 C Pulse Rate 83 79 87 Respiratory Rate 19 Blood Pressure 110/57 L 110/55 L 113/73 Pulse Oximetry 98 Oxygen Delivery Fraction of Inspired Oxygen 10/15/24 20:15 10/15/24 20:20 10/15/24 20:30 Temperature Pulse Rate 77 72 86 Respiratory Rate Blood Pressure 109/55 L 107/56 L Pulse Oximetry 98 Oxygen Delivery Mechanical Ventilation Fraction of Inspired Oxygen 30 10/15/24 20:40 10/15/24 20:56 10/15/24 21:00 Temperature Pulse Rate 78 69 78 Respiratory Rate 19 Blood Pressure 115/59 L 120/61 Pulse Oximetry Oxygen Delivery Fraction of Inspired Oxygen 10/15/24 21:05 10/15/24 21:30 10/15/24 22:00 Temperature 36.6 C Pulse Rate 76 74 78 Respiratory Rate 18 Blood Pressure 110/52 L 110/53 L Pulse Oximetry 98 Oxygen Delivery Fraction of Inspired Oxygen 10/15/24 22:00 10/15/24 22:00 10/15/24 23:00 Temperature 37.1 C Pulse Rate 75 74 71 Respiratory Rate 18 Blood Pressure 110/54 L 108/50 L 99/47 L Pulse Oximetry 98 Oxygen Delivery Fraction of Inspired Oxygen 10/15/24 23:05 10/16/24 00:00 10/16/24 00:00 Temperature Pulse Rate 76 75 75 Respiratory Rate 18 Blood Pressure Pulse Oximetry 98 98 Oxygen Delivery Mechanical Ventilation Mechanical Ventilation Fraction of Inspired Oxygen 30 30 10/16/24 00:00 10/16/24 00:00 10/16/24 01:32 Temperature 36.6 C Pulse Rate 73 71 Respiratory Rate 21 H Blood Pressure 95/58 L 99/46 L Pulse Oximetry 98 Oxygen Delivery Fraction of Inspired Oxygen 30 10/16/24 02:00 10/16/24 02:00 10/16/24 02:00 Temperature 37.3 C Pulse Rate 73 74 75 Respiratory Rate 18 Blood Pressure 99/46 L 90/41 L Pulse Oximetry 96 Oxygen Delivery Fraction of Inspired Oxygen 10/16/24 02:12 10/16/24 02:23 10/16/24 02:30 Temperature Pulse Rate 68 71 73 Respiratory Rate 24 H Blood Pressure 88/40 L Pulse Oximetry 97 Oxygen Delivery Mechanical Ventilation Fraction of Inspired Oxygen 25 10/16/24 03:00 10/16/24 03:12 10/16/24 04:00 Temperature Pulse Rate 68 65 69 Respiratory Rate 19 Blood Pressure 89/41 L 88/41 L Pulse Oximetry 97 Oxygen Delivery Mechanical Ventilation Fraction of Inspired Oxygen 25 10/16/24 04:00 10/16/24 04:00 10/16/24 04:00 Temperature 37.7 C H Pulse Rate 69 68 Respiratory Rate 18 Blood Pressure 92/41 L Pulse Oximetry 96 Oxygen Delivery Fraction of Inspired Oxygen 25 10/16/24 04:00 10/16/24 05:05 10/16/24 05:27 Temperature Pulse Rate 68 69 73 Respiratory Rate Blood Pressure 91/42 L Pulse Oximetry 96 Oxygen Delivery Mechanical Ventilation Fraction of Inspired Oxygen 25 10/16/24 05:27 10/16/24 06:00 10/16/24 07:42 Temperature 37.4 C Pulse Rate 68 70 76 Respiratory Rate 18 Blood Pressure 98/47 L 92/43 L Pulse Oximetry 96 96 Oxygen Delivery Mechanical Ventilation Fraction of Inspired Oxygen 25 10/16/24 07:42 10/16/24 07:56 10/16/24 08:00 Temperature 37.6 C Pulse Rate 76 75 76 Respiratory Rate 23 H 16 20 Blood Pressure 91/42 L Pulse Oximetry 96 Oxygen Delivery Fraction of Inspired Oxygen 10/16/24 08:00 10/16/24 08:00 10/16/24 08:00 Temperature Pulse Rate 74 76 Respiratory Rate Blood Pressure 90/43 L Pulse Oximetry Oxygen Delivery Fraction of Inspired Oxygen 25 10/16/24 08:00 10/16/24 08:50 10/16/24 10:00 Temperature Pulse Rate 78 74 82 Respiratory Rate 23 H Blood Pressure 101/52 L Pulse Oximetry 98 97 Oxygen Delivery Mechanical Ventilation Mechanical Ventilation Fraction of Inspired Oxygen 25 25 10/16/24 10:00 10/16/24 10:00 10/16/24 10:44 Temperature Pulse Rate 82 82 79 Respiratory Rate 23 H Blood Pressure 101/53 L Pulse Oximetry 97 98 Oxygen Delivery Mechanical Ventilation Fraction of Inspired Oxygen 10/16/24 11:00 10/16/24 11:00 10/16/24 11:15 Temperature Pulse Rate 80 80 78 Respiratory Rate Blood Pressure 102/55 L 102/55 L 102/51 L Pulse Oximetry Oxygen Delivery Fraction of Inspired Oxygen 10/16/24 11:30 10/16/24 14:03 Temperature Pulse Rate 83 73 Respiratory Rate 24 H Blood Pressure 104/52 L Pulse Oximetry Oxygen Delivery Fraction of Inspired Oxygen Intake/Output Intake/Output: Intake & Output 10/13/24 10/14/24 10/15/24 10/16/24 23:59 23:59 23:59 23:59 Intake Total 1143.2 1574.1 2405.9 1029.1 Output Total 3000 3500 3000 100 Balance -1856.8 -1925.9 -594.1 929.1 Meds/Results Medications: Active Medications Generic Name Dose Route Start Last Admin Trade Name Freq PRN Reason Stop Dose Admin Acetaminophen 650 mg 10/08/24 20:49 Acetaminophen 650 Mg Suppository RECTAL Q6H PRN Mild Pain (1-3) or Fever Albuterol/Ipratropium 3 ml 10/09/24 14:00 10/16/24 14:03 Ipratropium 0.5 Mg/Albuterol Sulfate 2.5 Mg Ampul.Neb 3 Ml INHALATION 3 ml Q6HRT CESAR Administration Allopurinol 100 mg 10/09/24 08:00 10/16/24 09:02 Allopurinol 100 Mg Tablet PO 100 mg DAILY@0800 CESAR Administration Apixaban 2.5 mg 10/09/24 09:00 10/16/24 09:02 Apixaban 2.5 Mg Tablet PO 2.5 mg Q12HR CESAR Administration Atorvastatin Calcium 10 mg 10/09/24 09:00 10/16/24 09:02 Atorvastatin 10 Mg Tablet PO 10 mg DAILY CESAR Administration Budesonide 0.5 mg 10/09/24 20:00 10/16/24 07:42 Budesonide Respule Neb 0.5 Mg/2 Ml Amp INHALATION 0.5 mg Q12HRT CESAR Administration Dextrose 12.5 gm 10/08/24 22:06 Dextrose 50% 25 Gm/50 Ml Syringe IV PUSH PRN PRN Hypoglycemia Protocol Glucagon 1 mg 10/08/24 22:06 Glucagon For Inj 1 Mg Vial IM PRN PRN Hypoglycemia Protocol Glucose 15 gm 10/08/24 22:06 Glucose Oral Gel 15 Gm Of Glucse In 37.5 Gm Tube PO PRN PRN Hypoglycemia Protocol Hydrocortisone Sodium Succinate 100 mg 10/09/24 14:30 10/16/24 14:56 Hydrocortisone Sodium Succinate 100 Mg/2 Ml Vial IV PUSH 100 mg Q8HR CESAR Administration Dextrose 1,000 mls @ 100 mls/hr 10/08/24 22:06 Dextrose 5% 1,000 Ml IVPB PRN PRN Hypoglycemia Protocol Ceftriaxone Sodium 2 gm in 100 mls @ 200 mls/hr 10/12/24 11:15 10/16/24 09:03 Rocephin 2 Gm/Ns 100 Ml IVPB 10/17/24 23:59 200 mls/hr DAILY CESAR Administration Norepinephrine Bitartrate 8 mg in 250 mls @ 24.375 mls/hr 10/13/24 05:05 10/16/24 12:55 Levophed 8 Mg/D5w 250 Ml IV CONT Not Given .[id number] CESAR Protocol 13 MCG/MIN Albumin Human 50 mls @ 999 mls/hr 10/14/24 06:24 10/15/24 17:30 Albutein IVPB 11/13/24 06:23 Infused Q10M PRN Infusion HYPOTENSION Insulin Aspart 4 - 8 units 10/11/24 12:00 10/16/24 12:57 Insulin Aspart (*Bkc) 100 Units/Ml SUB-Q Not Given Q4H [facility] Protocol Insulin Glargine 35 units 10/16/24 21:00 Insulin Glargine (*Bkc) 100 Units/Ml SUB-Q HS [facility] Midodrine 10 mg 10/15/24 13:00 10/16/24 14:56 Midodrine Hcl 10 Mg Tablet PO Not Given TID [facility] Multi-Ingred Cream/Lotion/Oil/Oint 1 applic 10/10/24 09:00 10/16/24 09:03 Mineral Oil/White Petrolatum Ointment EACH EYE 1 applic Q12HR CESAR Administration Mupirocin 1 applic 10/09/24 09:00 10/16/24 09:03 Mupirocin 2% Oint 22 Gm Tube EACH NARE 1 applic Q12HR CESAR Administration Pantoprazole Sodium 40 mg 10/09/24 13:45 10/16/24 09:02 Pantoprazole Sodium Iv 40 Mg Vial IV PUSH 40 mg QAM CESAR Administration Polyethylene Glycol 17 gm 10/15/24 10:25 10/16/24 09:02 Polyethylene Glycol 3350 17 Gm Powd.Pack PO 17 gm QAM CESAR Administration Fluticasone/Salmeterol 2 puff 10/09/24 08:00 10/09/24 09:26 Fluticasone/Salmeterol 115-21 Mcg Inhaler 1 Puff INHALATION Not Given Q12HRT CESAR Sevelamer Carbonate 1.6 gm 10/14/24 08:45 10/16/24 12:58 Sevelamer Carbonate 0.8 Gm Oral Powder Packet BY MOUTH Not Given TIDWM CESAR Sodium Chloride 10 ml 10/09/24 14:00 10/16/24 14:56 Central Line Flush IV PUSH 10 ml Q8HR CESAR Administration Sodium Chloride 20 ml 10/09/24 06:24 Central Line Flush IV PUSH PRN PRN after blood draws Radiology Results: ITS Impressions Pelvis X-Ray 10/08/24 22:22 IMPRESSION: As above. Head CT 10/08/24 23:18 IMPRESSION: No acute intracranial findings. Chest CT 10/08/24 23:27 IMPRESSION: 1. Interstitial thickening in the lower lobes which may indicate pneumonitis. Edema is less likely. 2. Cardiomegaly. 3. Cholelithiasis 4. Splenic cysts unchanged. Abdomen X-Ray 10/13/24 15:22 IMPRESSION: Nasogastric tube in good position and ready for immediate use. Chest X-Ray 10/16/24 07:12 Impression: Small left pleural effusion with left lower lobe atelectasis versus pneumonia. Central venous congestive change. Support tubes, as above. Labs Labs: Laboratory Results - last 24 hr 10/15/24 10/15/24 10/16/24 16:03 21:35 01:58 WBC RBC Hgb Hct MCV MCH MCHC RDW Plt Count MPV Immature Gran % (Auto) Neut % (Auto) Lymph % (Auto) Tyrrell % (Auto) Eos % (Auto) Baso % (Auto) Lymph # (Auto) Tyrrell # (Auto) Eos # (Auto) Baso # (Auto) Abs Immat Gran (auto) Absolute Neuts (auto) Absolute Nucleated RBC Band Neutrophils % Nucleated RBC % Platelet Estimate Hypochromasia Anisocytosis Ovalocytes Schistocytes Puncture Site ABG pH ABG pCO2 ABG pO2 ABG PO2/FiO2 Ratio ABG HCO3 ABG O2 Saturation ABG O2 Content ABG Base Excess A-a Gradient Oxyhemoglobin Carboxyhemoglobin Methemoglobin Reduced Hemoglobin Total Hemoglobin O2 Delivery Device O2 Liters/Min Minute Volume Vent Rate Vent Mode FiO2 Tidal Volume PEEP Peak Inspir Pressure Pressure Support Sodium Potassium Chloride Carbon Dioxide Anion Gap BUN Creatinine Estim Creat Clear Calc Estimated GFR Glucose POC Capillary Glucose 251 H 208 H 177 H Calcium Phosphorus Magnesium Total Bilirubin AST ALT Alkaline Phosphatase Total Protein Albumin 10/16/24 10/16/24 10/16/24 05:21 05:24 08:56 WBC 13.1 H RBC 4.65 Hgb 14.3 Hct 43.7 MCV 94.0 MCH 30.8 MCHC 32.7 RDW 17.1 H Plt Count 153 MPV 11.3 H Immature Gran % (Auto) 1.0 H Neut % (Auto) 88.7 H Lymph % (Auto) 2.8 L Tyrrell % (Auto) 7.3 Eos % (Auto) 0.0 Baso % (Auto) 0.2 Lymph # (Auto) 0.37 L Tyrrell # (Auto) 1.0 H Eos # (Auto) 0.0 Baso # (Auto) 0.0 Abs Immat Gran (auto) 0.13 H Absolute Neuts (auto) 11.7 H Absolute Nucleated RBC 0.000 Band Neutrophils % 0 Nucleated RBC % 0.0 Platelet Estimate Adequate Hypochromasia 1+ Anisocytosis 1+ Ovalocytes 1+ Schistocytes Rare Puncture Site Artline ABG pH 7.450 ABG pCO2 35.4 ABG pO2 75.1 L ABG PO2/FiO2 Ratio 3.00 ABG HCO3 24.1 ABG O2 Saturation 95.7 ABG O2 Content 19.8 ABG Base Excess 0.6 A-a Gradient 61.1 Oxyhemoglobin 93.6 Carboxyhemoglobin 1.3 Methemoglobin 0.0 Reduced Hemoglobin 5.1 H Total Hemoglobin 15.0 O2 Delivery Device Ventilator O2 Liters/Min Not Reportable Minute Volume Not Reportable Vent Rate 14 Vent Mode Cmv FiO2 25 Tidal Volume 450 PEEP 5 Peak Inspir Pressure Not Reportable Pressure Support Not Reportable Sodium 133 L Potassium 4.5 Chloride 96 L Carbon Dioxide 21 L Anion Gap 16 H BUN 60 H D Creatinine 4.21 H Estim Creat Clear Calc 13 Estimated GFR 14 L Glucose 246 H POC Capillary Glucose 254 H Calcium 8.6 Phosphorus 3.0 Magnesium 2.4 H Total Bilirubin 2.0 H AST 30 ALT 18 Alkaline Phosphatase 145 H Total Protein 7.0 Albumin 3.8 10/16/24 10/16/24 10:53 12:50 WBC RBC Hgb Hct MCV MCH MCHC RDW Plt Count MPV Immature Gran % (Auto) Neut % (Auto) Lymph % (Auto) Tyrrell % (Auto) Eos % (Auto) Baso % (Auto) Lymph # (Auto) Tyrrell # (Auto) Eos # (Auto) Baso # (Auto) Abs Immat Gran (auto) Absolute Neuts (auto) Absolute Nucleated RBC Band Neutrophils % Nucleated RBC % Platelet Estimate Hypochromasia Anisocytosis Ovalocytes Schistocytes Puncture Site Artline ABG pH 7.434 ABG pCO2 36.5 ABG pO2 64.1 L ABG PO2/FiO2 Ratio 2.56 ABG HCO3 23.9 ABG O2 Saturation 93.2 L ABG O2 Content 19.0 ABG Base Excess 0.1 A-a Gradient 70.8 Oxyhemoglobin 90.4 Carboxyhemoglobin Methemoglobin Reduced Hemoglobin Total Hemoglobin 15.0 O2 Delivery Device Ventilator O2 Liters/Min Not Reportable Minute Volume Not Reportable Vent Rate Not Reportable Vent Mode Spontaneous FiO2 25 Tidal Volume Not Reportable PEEP 5 Peak Inspir Pressure Not Reportable Pressure Support 8 Sodium Potassium Chloride Carbon Dioxide Anion Gap BUN Creatinine Estim Creat Clear Calc Estimated GFR Glucose POC Capillary Glucose 188 H Calcium Phosphorus Magnesium Total Bilirubin AST ALT Alkaline Phosphatase Total Protein Albumin
[2024-10-16 16:36] LABS: Glucose Point of Care 178 mg/dl (65-105)
[2024-10-16] MEDS: INSULIN GLARGINE (*BKC) 100 UNITS/ML 35 UNITS SUB-Q (21:17)
[2024-10-16 21:34] LABS: Glucose Point of Care 175 mg/dl (65-105)
[2024-10-16] MEDS: NOREPINEPHRINE 8 MG/D5W 250 ML 8 MG/250 ML BAG 22.5 MG IV CONT (22:37)
[2024-10-17] VITALS (75 sets, daily range): BP systolic 85–122; BP diastolic 46–76; PULSE 71–105; RESP 17–25; TEMP 36.7–37.9; O2SAT 87–100
[2024-10-17 00:09] LABS: Glucose Point of Care 128 mg/dl (65-105)
[2024-10-17] MEDS: IPRATROPIUM 0.5 MG/ALBUTEROL SULFATE 2.5 MG AMPUL.NEB 3 ML INHALATION ×4 (02:45→20:35)
[2024-10-17] MEDS: HYDROCORTISONE SODIUM SUCCINATE 100 MG/2 ML VIAL IV PUSH (05:32)
[2024-10-17] MEDS: CENTRAL LINE FLUSH 10 ML IV PUSH ×3 (05:32→20:34)
[2024-10-17 05:48] LABS: Basophils Percent Auto 0.1 % (0.2-1.2); Hematocrit 42.5 % (42.0-52.0); Hemoglobin 13.9 g/dL (14.0-18.0); Immature Granulocyte Absolute 0.09 K/mm3 (0.00-0.031); Immature Granulocyte Percent A 0.7 % (0-0.5); Lymphocytes Absolute Auto 0.45 K/mm3 (0.9-3.2); Lymphocytes Percent Auto 3.7 % (18.3-44.2); Mean Corpuscular HGB Conc 32.7 g/dl (32-36); Mean Corpuscular Hemoglobin 31.1 pg (26-34); Mean Corpuscular Volume 95.1 fl (80-100); Mean Platelet Volume 10.8 fl (7.4-10.4); Monocytes Absolute Auto 0.7 K/mm3 (0.1-0.6); Monocytes Percent Auto 5.9 % (2.6-8.5); Neutrophils Percent Auto 89.6 % (45.5-73.1); Platelet Count Result 156 k/mm3 (150-375); Red Blood Count 4.47 M/mm3 (4.6-6.20); Red Cell Distribution Width 17.2 % (11.5-14.5); White Blood Count 12.3 K/mm3 (4.5-10.0)
[2024-10-17 06:02] LABS: Glucose Point of Care 117 mg/dl (65-105)
[2024-10-17 06:07] LABS: Alanine Aminotransferase 18 U/L (6-50); Albumin Level 3.4 g/dL (3.5-5.1); Alkaline Phosphatase 116 U/L (38-126); Anion Gap 14 mmol/L (4-12); Aspartate Amino Transferase 29 U/L (17-59); Bilirubin,Total 1.7 mg/dL (0.2-1.3); Blood Urea Nitrogen 93 mg/dL (9-20); Calcium 8.2 mg/dL (8.4-10.2); Carbon Dioxide 26 mmol/L (22-30); Chloride 96 mmol/L (98-107); Estimated CRCL calculation 10 ml/min; Estimated Glomerular Filt Rate 10; Glucose 116 mg/dL (65-110); Magnesium 2.3 mg/dL (1.6-2.3); Phosphorus 3.2 mg/dL (2.5-4.5); Potassium 4.7 mmol/L (3.4-5.0); Sodium 136 mmol/L (137-145)
[2024-10-17 07:21] LABS: Anisocytosis 1+; Schistocytes None Seen
[2024-10-17 07:22] LABS: Ovalocytes 1+; Platelet Estimate Adequate (Adequate)
--- NOTE | 2024-10-17 07:47 | WPDINTPN ---
Progress Note: A&P Assessment and Plan (1) Respiratory failure: Code(s): J96.90 - Respiratory failure, unspecified, unspecified whether with hypoxia or hypercapnia Status: Acute Assessment and Plan: Acute respiratory failure likely related to pneumonia, altered mental status, airway protection -10/08: Intubated -10/16: Extubated - continue bronchodilators and Pulmicort -chest x-ray reviewed, will have respiratory therapist encourage incentive spirometry, EzPAP -speech for bedside swallow evaluation -PT/OT has been ordered, up in chair as tolerated with assistance (2) Septic shock: Code(s): A41.9 - Sepsis, unspecified organism; R65.21 - Severe sepsis with septic shock Status: Acute Assessment and Plan: Patient presented with altered mental status, hypotension, lactic acidosis -septic shock likely related to bacteremia, bilateral pneumonia along with influenza -continue ceftriaxone (10/08) -status post azithromycin and vancomycin -10/08: Blood cultures growing strep mitis -10/10 repeat set of blood culture sent and negative till now -TTE and ROBERT are negative for evidence of valve vegetations -patient remains on Levophed but off of epinephrine and vasopressin, maintain SBP >90 mmHg. (patient's blood pressure is normally runs low according to his family) -continue hydrocortisone -continue midodrine (3) Bacteremia: Code(s): R78.81 - Bacteremia Status: Acute Assessment and Plan: 10/08: Blood cultures growing strep mitis group 10/10 repeat set of blood culture sent and negative till now -continue antibiotics as above TTE as below ROBERT negative for evidence of vegetation (4) Influenza A: Code(s): J10.1 - Influenza due to other identified influenza virus with other respiratory manifestations Status: Acute Assessment and Plan: Completed a course of renally dosed Tamiflu (5) Pneumonia: Code(s): J18.9 - Pneumonia, unspecified organism Status: Acute Assessment and Plan: Chest x-ray showed pneumonia, CT chest showed pneumonitis, -continue antibiotics as above (6) Altered mental status: Code(s): R41.82 - Altered mental status, unspecified Status: Acute Assessment and Plan: Currently intubated and sedated Head CT was negative for any acute changes at the time presentation (7) End-stage renal disease on hemodialysis: Code(s): N18.6 - End stage renal disease; Z99.2 - Dependence on renal dialysis Status: Acute Assessment and Plan: End-stage renal disease on dialysis (M, W, F) -dialysis per Nephrology. On (8) Diabetes: Qualifiers: Diabetes mellitus type: type 2 Diabetes mellitus [facility] insulin use: without [facility] use Diabetes mellitus complication status: with kidney complications Diabetes mellitus complication detail: with chronic kidney disease Chronic kidney disease stage: on chronic dialysis Qualified Code(s): E11.22 - Type 2 diabetes mellitus with diabetic chronic kidney disease; N18.6 - End stage renal disease; Z99.2 - Dependence on renal dialysis Code(s): E11.9 - Type 2 diabetes mellitus without complications Status: Chronic Assessment and Plan: Continue current sliding scale and Lantus dose which was decreased since patient is NPO for now Plan DVT prophylaxis: SCDs Eliquis is on hold secondary to thrombocytopenia Stress ulcer prophylaxis: Protonix Nutrition: Speech to evaluate for bedside swallow Code Status: Full code Critical Care Time Spent: 32 minutes Due to a high probability of clinically significant, life threatening deterioration, the patient required my highest level of preparedness to intervene emergently and I personally spent this critical care time directly and personally managing the patient. This critical care time included obtaining a history; examining the patient; pulse oximetry; ordering and review of studies; arranging urgent treatment with development of a management plan; evaluation of patient's response to treatment; frequent reassessment; and discussions with other providers. It was exclusive of separately billable procedures and treating other patients and teaching time. Please see Assessment and Plan section and the rest of the note for further information on patient assessment and treatment This dictation may have been done utilizing a voice recognition system. Attempts have been made to correct errors. However, there may be uncorrected grammatical, spelling, and recognitions errors present. Subjective Date/time seen: 10/17/24 07:47 Interval history: Reason for consult: Altered mental status, generalized weakness, hypotension, shock, acute respiratory failure, Gram-positive cocci in chains bacteremia, influenza A positive, MRSA screen positive 10/08: Intubated 10/16: Extubated 10/17/2024: Patient seen and examined in the ICU, remains extubated, on 2 L nasal cannula with adequate O2 sats. Opens eyes, nods to questions, answers yes or no to questions. Denies any chest pain, shortness O breath/difficulty of breathing, nausea, vomiting. Follows simple commands in upper extremities. Remains on Levophed. No urine output as patient has ESRD on hemodialysis . Review of Systems Review of Systems: All systems reviewed & are unremarkable except as noted in HPI and below Exam Narrative: General: Patient on nasal cannula, awake, in no acute distress HEENT:? Pupils equal and reactive bilaterally Neck:? Supple Respiratory:? Coarse breath sounds bilaterally, decreased at bases, no wheezing, adequate air entry Cardiac:? Irregularly irregular, rate controlled Abdomen:? Soft, nontender, nondistended, protuberant, hypoactive bowel sounds Extremities:? Bilateral lower extremity edema pitting in nature, palpable pedal pulses Neuro:? Patient is awake, alert, nods to questions, answers yes or no to questions. Follows simple commands and upper extremities but not in lower extremities Skin:? No skin lesions noted Psych:? Unable to assess at this time Objective Data Vital Signs Vital Signs: Vital Signs - 24 hr 10/16/24 07:56 10/16/24 08:00 10/16/24 08:00 Temperature 99.6 F Pulse Rate 75 76 74 Respiratory Rate 16 20 Blood Pressure 91/42 L 90/43 L Pulse Oximetry 96 Oxygen Delivery Oxygen Flow Rate Fraction of Inspired Oxygen 10/16/24 08:00 10/16/24 08:00 10/16/24 08:00 Temperature Pulse Rate 76 78 Respiratory Rate 23 H Blood Pressure Pulse Oximetry 98 Oxygen Delivery Mechanical Ventilation Oxygen Flow Rate Fraction of Inspired Oxygen 10/16/24 08:50 10/16/24 10:00 10/16/24 10:00 Temperature Pulse Rate 74 82 82 Respiratory Rate Blood Pressure 101/52 L Pulse Oximetry 97 Oxygen Delivery Mechanical Ventilation Oxygen Flow Rate Fraction of Inspired Oxygen 10/16/24 10:00 10/16/24 10:44 10/16/24 11:00 Temperature Pulse Rate 82 79 80 Respiratory Rate 23 H Blood Pressure 101/53 L 102/55 L Pulse Oximetry 97 98 Oxygen Delivery Mechanical Ventilation Oxygen Flow Rate Fraction of Inspired Oxygen 10/16/24 11:00 10/16/24 11:15 10/16/24 11:30 Temperature Pulse Rate 80 78 83 Respiratory Rate Blood Pressure 102/55 L 102/51 L 104/52 L Pulse Oximetry Oxygen Delivery Oxygen Flow Rate Fraction of Inspired Oxygen 10/16/24 12:00 10/16/24 12:00 10/16/24 12:00 Temperature 99.4 F Pulse Rate 79 79 79 Respiratory Rate 23 H 22 H Blood Pressure 106/53 L Pulse Oximetry 98 99 Oxygen Delivery Nasal Cannula Oxygen Flow Rate 2 Fraction of Inspired Oxygen 10/16/24 12:00 10/16/24 14:00 10/16/24 14:00 Temperature Pulse Rate 79 76 70 Respiratory Rate 25 H Blood Pressure 106/53 L 106/55 L Pulse Oximetry 99 Oxygen Delivery Oxygen Flow Rate Fraction of Inspired Oxygen 10/16/24 14:00 10/16/24 14:03 10/16/24 16:00 Temperature 98.4 F Pulse Rate 76 73 70 Respiratory Rate 24 H 19 Blood Pressure 106/55 L 94/53 L Pulse Oximetry 95 Oxygen Delivery Oxygen Flow Rate Fraction of Inspired Oxygen 10/16/24 16:00 10/16/24 16:00 10/16/24 16:00 Temperature Pulse Rate 73 73 73 Respiratory Rate 19 Blood Pressure 99/54 L Pulse Oximetry 99 Oxygen Delivery Nasal Cannula Oxygen Flow Rate 2 Fraction of Inspired Oxygen 10/16/24 18:00 10/16/24 18:00 10/16/24 18:00 Temperature Pulse Rate 74 74 74 Respiratory Rate 24 H Blood Pressure 95/53 L 95/53 L Pulse Oximetry 97 Oxygen Delivery Oxygen Flow Rate Fraction of Inspired Oxygen 10/16/24 19:15 10/16/24 19:30 10/16/24 19:45 Temperature Pulse Rate 75 70 76 Respiratory Rate 19 17 23 H Blood Pressure Pulse Oximetry 98 98 98 Oxygen Delivery Oxygen Flow Rate Fraction of Inspired Oxygen 10/16/24 20:00 10/16/24 20:00 10/16/24 20:00 Temperature Pulse Rate 73 70 74 Respiratory Rate 23 H Blood Pressure 104/58 L 104/58 L Pulse Oximetry 98 Oxygen Delivery Oxygen Flow Rate Fraction of Inspired Oxygen 10/16/24 20:00 10/16/24 20:01 10/16/24 20:15 Temperature Pulse Rate 69 75 79 Respiratory Rate 23 H 18 22 H Blood Pressure 116/62 Pulse Oximetry 97 98 98 Oxygen Delivery Oxygen Flow Rate Fraction of Inspired Oxygen 10/16/24 20:30 10/16/24 20:32 10/16/24 20:32 Temperature Pulse Rate 80 78 78 Respiratory Rate 23 H 18 18 Blood Pressure Pulse Oximetry 97 97 Oxygen Delivery Nasal Cannula Oxygen Flow Rate 2 Fraction of Inspired Oxygen 10/16/24 20:40 10/16/24 20:45 10/16/24 21:00 Temperature Pulse Rate 73 73 69 Respiratory Rate 21 H 20 24 H Blood Pressure Pulse Oximetry 100 100 100 Oxygen Delivery Nasal Cannula Oxygen Flow Rate 2 Fraction of Inspired Oxygen 10/16/24 21:15 10/16/24 21:29 10/16/24 21:30 Temperature Pulse Rate 79 73 77 Respiratory Rate 18 19 Blood Pressure 97/50 L Pulse Oximetry 97 99 Oxygen Delivery Oxygen Flow Rate Fraction of Inspired Oxygen 10/16/24 21:45 10/16/24 21:48 10/16/24 22:00 Temperature Pulse Rate 82 77 80 Respiratory Rate 26 H 20 Blood Pressure 95/49 L Pulse Oximetry 97 Oxygen Delivery Oxygen Flow Rate Fraction of Inspired Oxygen 10/16/24 22:00 10/16/24 22:00 10/16/24 22:00 Temperature Pulse Rate 80 80 77 Respiratory Rate 23 H 26 H Blood Pressure 95/49 L 115/71 Pulse Oximetry 97 97 Oxygen Delivery Oxygen Flow Rate Fraction of Inspired Oxygen 10/16/24 22:01 10/16/24 22:15 10/16/24 22:30 Temperature Pulse Rate 81 77 83 Respiratory Rate 25 H 22 H 28 H Blood Pressure Pulse Oximetry 97 97 96 Oxygen Delivery Oxygen Flow Rate Fraction of Inspired Oxygen 10/16/24 22:37 10/16/24 22:45 10/16/24 23:00 Temperature Pulse Rate 79 82 80 Respiratory Rate 25 H 15 Blood Pressure 74/41 L Pulse Oximetry 98 97 Oxygen Delivery Oxygen Flow Rate Fraction of Inspired Oxygen 10/16/24 23:15 10/16/24 23:30 10/16/24 23:45 Temperature Pulse Rate 82 81 77 Respiratory Rate 26 H 24 H 21 H Blood Pressure Pulse Oximetry 97 96 97 Oxygen Delivery Oxygen Flow Rate Fraction of Inspired Oxygen 10/17/24 00:00 10/17/24 00:00 10/17/24 00:00 Temperature 100.2 F H Pulse Rate 80 80 80 Respiratory Rate 23 H 23 H Blood Pressure 95/54 L 95/54 L Pulse Oximetry 97 97 Oxygen Delivery Nasal Cannula Oxygen Flow Rate 2 Fraction of Inspired Oxygen 10/17/24 00:00 10/17/24 00:00 10/17/24 00:01 Temperature Pulse Rate 75 78 77 Respiratory Rate 23 H 25 H Blood Pressure 98/57 L Pulse Oximetry 90 97 Oxygen Delivery Oxygen Flow Rate Fraction of Inspired Oxygen 10/17/24 00:10 10/17/24 00:15 10/17/24 00:30 Temperature Pulse Rate 81 76 78 Respiratory Rate 23 H 21 H Blood Pressure 87/48 L Pulse Oximetry 96 94 Oxygen Delivery Oxygen Flow Rate Fraction of Inspired Oxygen 10/17/24 00:45 10/17/24 01:00 10/17/24 01:15 Temperature Pulse Rate 77 79 85 Respiratory Rate 22 H 23 H 23 H Blood Pressure Pulse Oximetry 93 94 87 L Oxygen Delivery Oxygen Flow Rate Fraction of Inspired Oxygen 10/17/24 01:30 10/17/24 01:45 10/17/24 02:00 Temperature Pulse Rate 79 76 78 Respiratory Rate 21 H 23 H Blood Pressure Pulse Oximetry 92 95 Oxygen Delivery Oxygen Flow Rate Fraction of Inspired Oxygen 10/17/24 02:00 10/17/24 02:00 10/17/24 02:00 Temperature Pulse Rate 78 78 75 Respiratory Rate 24 H 23 H Blood Pressure 103/55 L 103/55 L 112/66 Pulse Oximetry 95 94 Oxygen Delivery Oxygen Flow Rate Fraction of Inspired Oxygen 10/17/24 02:01 10/17/24 02:15 10/17/24 02:30 Temperature Pulse Rate 77 78 73 Respiratory Rate 23 H 22 H 22 H Blood Pressure Pulse Oximetry 92 95 93 Oxygen Delivery Oxygen Flow Rate Fraction of Inspired Oxygen 10/17/24 02:40 10/17/24 02:45 10/17/24 02:45 Temperature Pulse Rate 71 80 77 Respiratory Rate 24 H 24 H Blood Pressure 98/53 L Pulse Oximetry 95 Oxygen Delivery Oxygen Flow Rate Fraction of Inspired Oxygen 10/17/24 02:55 10/17/24 03:00 10/17/24 03:03 Temperature Pulse Rate 72 80 78 Respiratory Rate 24 H 24 H Blood Pressure 108/58 L Pulse Oximetry 100 Oxygen Delivery Oxygen Flow Rate Fraction of Inspired Oxygen 10/17/24 03:15 10/17/24 03:30 10/17/24 03:45 Temperature Pulse Rate 81 87 78 Respiratory Rate 24 H 22 H 23 H Blood Pressure Pulse Oximetry 96 92 92 Oxygen Delivery Oxygen Flow Rate Fraction of Inspired Oxygen 10/17/24 04:00 10/17/24 04:00 10/17/24 04:00 Temperature 99.6 F Pulse Rate 79 79 79 Respiratory Rate 23 H 23 H Blood Pressure 89/48 L 89/48 L Pulse Oximetry 91 91 Oxygen Delivery Nasal Cannula Oxygen Flow Rate 2 Fraction of Inspired Oxygen 10/17/24 04:00 10/17/24 04:00 10/17/24 04:01 Temperature Pulse Rate 78 83 83 Respiratory Rate 19 24 H Blood Pressure 102/68 Pulse Oximetry 93 95 Oxygen Delivery Oxygen Flow Rate Fraction of Inspired Oxygen 10/17/24 04:15 10/17/24 04:23 10/17/24 04:30 Temperature Pulse Rate 81 73 73 Respiratory Rate 22 H 22 H Blood Pressure 109/55 L Pulse Oximetry 91 93 Oxygen Delivery Oxygen Flow Rate Fraction of Inspired Oxygen 10/17/24 04:45 10/17/24 05:00 10/17/24 05:15 Temperature Pulse Rate 80 79 80 Respiratory Rate 22 H 22 H 22 H Blood Pressure Pulse Oximetry 93 96 95 Oxygen Delivery Oxygen Flow Rate Fraction of Inspired Oxygen 10/17/24 05:30 10/17/24 05:30 10/17/24 05:45 Temperature Pulse Rate 79 80 83 Respiratory Rate 22 H 24 H Blood Pressure 101/52 L Pulse Oximetry 98 92 Oxygen Delivery Oxygen Flow Rate Fraction of Inspired Oxygen 10/17/24 06:00 10/17/24 06:00 10/17/24 06:01 Temperature Pulse Rate 82 79 81 Respiratory Rate 23 H 25 H Blood Pressure 103/66 Pulse Oximetry 93 94 Oxygen Delivery Oxygen Flow Rate Fraction of Inspired Oxygen 10/17/24 06:08 10/17/24 06:30 10/17/24 06:53 Temperature Pulse Rate 79 78 75 Respiratory Rate Blood Pressure 100/55 L 98/53 L 85/46 L Pulse Oximetry Oxygen Delivery Oxygen Flow Rate Fraction of Inspired Oxygen 10/17/24 07:24 Temperature Pulse Rate 75 Respiratory Rate Blood Pressure 88/49 L Pulse Oximetry Oxygen Delivery Oxygen Flow Rate Fraction of Inspired Oxygen Intake/Output Intake/Output: Intake & Output 10/14/24 10/15/24 10/16/24 10/17/24 23:59 23:59 23:59 23:59 Intake Total 1574.1 2405.9 1896.4 196.3 Output Total 3500 3000 100 0 Balance -1925.9 -594.1 1796.4 196.3 Meds/Results Medications: Active Medications Generic Name Dose Route Start Last Admin Trade Name Sd PRN Reason Stop Dose Admin Acetaminophen 650 mg 10/08/24 20:49 Acetaminophen 650 Mg Suppository RECTAL Q6H PRN Mild Pain (1-3) or Fever Albuterol/Ipratropium 3 ml 10/09/24 14:00 10/17/24 02:45 Ipratropium 0.5 Mg/Albuterol Sulfate 2.5 Mg Ampul.Neb 3 Ml INHALATION 3 ml Q6HRT CESAR Administration Allopurinol 100 mg 10/09/24 08:00 10/16/24 09:02 Allopurinol 100 Mg Tablet PO 100 mg DAILY@0800 CESAR Administration Apixaban 2.5 mg 10/09/24 09:00 10/16/24 21:18 Apixaban 2.5 Mg Tablet PO Not Given Q12HR CESAR Atorvastatin Calcium 10 mg 10/09/24 09:00 10/16/24 09:02 Atorvastatin 10 Mg Tablet PO 10 mg DAILY CESAR Administration Budesonide 0.5 mg 10/09/24 20:00 10/16/24 20:32 Budesonide Respule Neb 0.5 Mg/2 Ml Amp INHALATION 0.5 mg Q12HRT CESAR Administration Dextrose 12.5 gm 10/08/24 22:06 Dextrose 50% 25 Gm/50 Ml Syringe IV PUSH PRN PRN Hypoglycemia Protocol Glucagon 1 mg 10/08/24 22:06 Glucagon For Inj 1 Mg Vial IM PRN PRN Hypoglycemia Protocol Glucose 15 gm 10/08/24 22:06 Glucose Oral Gel 15 Gm Of Glucse In 37.5 Gm Tube PO PRN PRN Hypoglycemia Protocol Hydrocortisone Sodium Succinate 100 mg 10/09/24 14:30 10/17/24 05:32 Hydrocortisone Sodium Succinate 100 Mg/2 Ml Vial IV PUSH 100 mg Q8HR CESAR Administration Dextrose 1,000 mls @ 100 mls/hr 10/08/24 22:06 Dextrose 5% 1,000 Ml IVPB PRN PRN Hypoglycemia Protocol Ceftriaxone Sodium 2 gm in 100 mls @ 200 mls/hr 10/12/24 11:15 10/16/24 10:00 Rocephin 2 Gm/Ns 100 Ml IVPB 10/17/24 23:59 Infused DAILY CESAR Infusion Norepinephrine Bitartrate 8 mg in 250 mls @ 22.5 mls/hr 10/13/24 05:05 10/17/24 07:24 Levophed 8 Mg/D5w 250 Ml IV CONT 12 mcg/min .Q11H7M CESAR 22.5 mls/hr Titration Protocol 12 MCG/MIN Albumin Human 50 mls @ 999 mls/hr 10/14/24 06:24 10/15/24 17:30 Albutein IVPB 11/13/24 06:23 Infused Q10M PRN Infusion HYPOTENSION Insulin Aspart 4 - 8 units 10/11/24 12:00 10/17/24 04:42 Insulin Aspart (*Bkc) 100 Units/Ml SUB-Q Not Given Q4H CESAR Protocol Insulin Glargine 35 units 10/16/24 21:00 10/16/24 21:17 Insulin Glargine (*Bkc) 100 Units/Ml SUB-Q 35 units HS CESAR Administration Midodrine 10 mg 10/15/24 13:00 10/16/24 17:57 Midodrine Hcl 10 Mg Tablet PO Not Given TID CESAR Multi-Ingred Cream/Lotion/Oil/Oint 1 applic 10/10/24 09:00 10/16/24 20:07 Mineral Oil/White Petrolatum Ointment EACH EYE Not Given Q12HR CESAR Neomycin/Polymyxin/Bacitracin 1 applic 10/17/24 09:00 Neomycin/Polymyxin/Bacitracin Ointment 15 Gm Tube TOPICAL QAM CESAR Pantoprazole Sodium 40 mg 10/09/24 13:45 10/16/24 09:02 Pantoprazole Sodium Iv 40 Mg Vial IV PUSH 40 mg QAM CESAR Administration Polyethylene Glycol 17 gm 10/15/24 10:25 10/16/24 09:02 Polyethylene Glycol 3350 17 Gm Powd.Pack PO 17 gm QAM CESAR Administration Fluticasone/Salmeterol 2 puff 10/09/24 08:00 10/09/24 09:26 Fluticasone/Salmeterol 115-21 Mcg Inhaler 1 Puff INHALATION Not Given Q12HRT CESAR Sevelamer Carbonate 1.6 gm 10/14/24 08:45 10/16/24 17:57 Sevelamer Carbonate 0.8 Gm Oral Powder Packet BY MOUTH Not Given TIDWM CESAR Sodium Chloride 10 ml 10/09/24 14:00 10/17/24 05:32 Central Line Flush IV PUSH 10 ml Q8HR CESAR Administration Sodium Chloride 20 ml 10/09/24 06:24 Central Line Flush IV PUSH PRN PRN after blood draws Radiology Results: ITS Impressions Pelvis X-Ray 10/08/24 22:22 IMPRESSION: As above. Head CT 10/08/24 23:18 IMPRESSION: No acute intracranial findings. Chest CT 10/08/24 23:27 IMPRESSION: 1. Interstitial thickening in the lower lobes which may indicate pneumonitis. Edema is less likely. 2. Cardiomegaly. 3. Cholelithiasis 4. Splenic cysts unchanged. Abdomen X-Ray 10/13/24 15:22 IMPRESSION: Nasogastric tube in good position and ready for immediate use. Chest X-Ray 10/17/24 06:46 IMPRESSION: Right basilar atelectasis versus pneumonia. Bilateral interstitial changes which may indicate pneumonitis versus pulmonary edema. Clinical correlation and follow-up advised. Labs Labs: Laboratory Results - last 24 hr 10/16/24 10/16/24 10/16/24 08:56 10:53 12:50 WBC RBC Hgb Hct MCV MCH MCHC RDW Plt Count MPV Immature Gran % (Auto) Neut % (Auto) Lymph % (Auto) [place] % (Auto) Eos % (Auto) Baso % (Auto) Lymph # (Auto) [place] # (Auto) Eos # (Auto) Baso # (Auto) Abs Immat Gran (auto) Absolute Neuts (auto) Absolute Nucleated RBC Band Neutrophils % Nucleated RBC % Platelet Estimate Anisocytosis Ovalocytes Schistocytes Puncture Site Artline ABG pH 7.434 ABG pCO2 36.5 ABG pO2 64.1 L ABG PO2/FiO2 Ratio 2.56 ABG HCO3 23.9 ABG O2 Saturation 93.2 L ABG O2 Content 19.0 ABG Base Excess 0.1 A-a Gradient 70.8 Oxyhemoglobin 90.4 Total Hemoglobin 15.0 O2 Delivery Device Ventilator O2 Liters/Min Not Reportable Minute Volume Not Reportable Vent Rate Not Reportable Vent Mode Spontaneous FiO2 25 Tidal Volume Not Reportable PEEP 5 Peak Inspir Pressure Not Reportable Pressure Support 8 Sodium Potassium Chloride Carbon Dioxide Anion Gap BUN Creatinine Estim Creat Clear Calc Estimated GFR Glucose POC Capillary Glucose 254 H 188 H Calcium Phosphorus Magnesium Total Bilirubin AST ALT Alkaline Phosphatase Total Protein Albumin 10/16/24 10/16/24 10/16/24 16:33 20:50 23:42 WBC RBC Hgb Hct MCV MCH MCHC RDW Plt Count MPV Immature Gran % (Auto) Neut % (Auto) Lymph % (Auto) [place] % (Auto) Eos % (Auto) Baso % (Auto) Lymph # (Auto) [place] # (Auto) Eos # (Auto) Baso # (Auto) Abs Immat Gran (auto) Absolute Neuts (auto) Absolute Nucleated RBC Band Neutrophils % Nucleated RBC % Platelet Estimate Anisocytosis Ovalocytes Schistocytes Puncture Site ABG pH ABG pCO2 ABG pO2 ABG PO2/FiO2 Ratio ABG HCO3 ABG O2 Saturation ABG O2 Content ABG Base Excess A-a Gradient Oxyhemoglobin Total Hemoglobin O2 Delivery Device O2 Liters/Min Minute Volume Vent Rate Vent Mode FiO2 Tidal Volume PEEP Peak Inspir Pressure Pressure Support Sodium Potassium Chloride Carbon Dioxide Anion Gap BUN Creatinine Estim Creat Clear Calc Estimated GFR Glucose POC Capillary Glucose 178 H 175 H 128 H Calcium Phosphorus Magnesium Total Bilirubin AST ALT Alkaline Phosphatase Total Protein Albumin 10/17/24 10/17/24 04:26 05:32 WBC 12.3 H RBC 4.47 L Hgb 13.9 L Hct 42.5 MCV 95.1 MCH 31.1 MCHC 32.7 RDW 17.2 H Plt Count 156 MPV 10.8 H Immature Gran % (Auto) 0.7 H Neut % (Auto) 89.6 H Lymph % (Auto) 3.7 L [place] % (Auto) 5.9 Eos % (Auto) 0.0 Baso % (Auto) 0.1 L Lymph # (Auto) 0.45 L [place] # (Auto) 0.7 H Eos # (Auto) 0.0 Baso # (Auto) 0.0 Abs Immat Gran (auto) 0.09 H Absolute Neuts (auto) 11.0 H Absolute Nucleated RBC 0.000 Band Neutrophils % Not Reportable Nucleated RBC % 0.0 Platelet Estimate Adequate Anisocytosis 1+ Ovalocytes 1+ Schistocytes None seen Puncture Site ABG pH ABG pCO2 ABG pO2 ABG PO2/FiO2 Ratio ABG HCO3 ABG O2 Saturation ABG O2 Content ABG Base Excess A-a Gradient Oxyhemoglobin Total Hemoglobin O2 Delivery Device O2 Liters/Min Minute Volume Vent Rate Vent Mode FiO2 Tidal Volume PEEP Peak Inspir Pressure Pressure Support Sodium 136 L Potassium 4.7 Chloride 96 L Carbon Dioxide 26 Anion Gap 14 H BUN 93 H D Creatinine 5.54 H Estim Creat Clear Calc 10 Estimated GFR 10 L Glucose 116 H POC Capillary Glucose 117 H Calcium 8.2 L Phosphorus 3.2 Magnesium 2.3 Total Bilirubin 1.7 H AST 29 ALT 18 Alkaline Phosphatase 116 Total Protein 7.0 Albumin 3.4 L Quality VTE Prophylaxis VTE prophylaxis: mechanical ordered
[2024-10-17] MEDS: BUDESONIDE RESPULE NEB 0.5 MG/2 ML AMP INHALATION ×2 (08:17→20:35)
[2024-10-17] MEDS: cefTRIAXone 2 GM/NS 100 ML 2 GM/100 ML BAG IVPB (08:33)
[2024-10-17] MEDS: PANTOPRAZOLE SODIUM IV 40 MG VIAL IV PUSH (08:33)
[2024-10-17] MEDS: NEOMYCIN/POLYMYXIN/BACITRACIN OINTMENT 15 GM TUBE 1 APPLIC TOPICAL (08:47)
[2024-10-17 09:11] LABS: Glucose Point of Care 80 mg/dl (65-105)
--- NOTE | 2024-10-17 09:31 | PM.PNNEP ---
Progress Note: A&P Assessment and Plan (1) End-stage renal disease (ESRD): Code(s): N18.6 - End stage renal disease Status: Chronic Assessment and Plan: HD Has been done 6 days in a row: 3 dialyses, 3 ultrafiltrations. He did not receive dialysis yesterday. He is doing well today in regards to breathing. Blood pressure is still soft on 12 of Levo. Will hold off on another dialysis today Since he is breathing well as potassium is okay (2) Septic shock: Code(s): A41.9 - Sepsis, unspecified organism; R65.21 - Severe sepsis with septic shock Status: Acute Assessment and Plan: as noted on presentation - AMS + acute on chronic hypotension + lactic acidosis complicated by chronic hypotension at baseline (on midodrine at baseline) presumed to be secondary to bacteremia, pneumonia and influenza culture data noted: blood cultures (on 10/08) with Streptococcus mitis blood cultures (on 10/10) with no growth to date On Levophed now still. Adding midodrine to help see if we can wean this Echo results noted (see #4) -- no evidence of endocarditis stress dose steroids Blood pressure in the mid 90s to low 100s and he is still on 12 of norepinephrine. He is also on midodrine to help wean the norepinephrine. He is on hydrocortisone already. (3) Acute respiratory failure: Code(s): J96.00 - Acute respiratory failure, unspecified whether with hypoxia or hypercapnia Status: Acute Assessment and Plan: multifactorial: pneumonia altered mental status need for airway protection fluid intubated on 10/08 in ER on bronchodilators fluid removal with dialysis as tolerated . Next treatment tomorrow (4) Bacteremia: Code(s): R78.81 - Bacteremia Status: Acute Assessment and Plan: 10/08 blood cultures with Streptococcus mitis 10/10 repeat set of blood culture with NO growth to date TTE (10/11 )results noted: left ventricular systolic function is normal, estimated at > 70% left ventricular diastolic function is grade II diastolic dysfunction right ventricular systolic function is reduced. flattening of the septum in diastole and systole consistent with right ventricular volume and pressure overload left and right atrial chamber dimension is severely enlarged mild mitral valve regurgitation moderate to severe tricuspid valve regurgitation. pulmonary hypertension, estimated pulmonary arterial systolic pressureis 66 mmHg cannot rule out vegetations on this study ROBERT (10/13): no vegetations noted on the mitral valve -- trace mitral valve regurgitation no vegetations noted on tricuspid valve -- moderate tricuspid valve regurgitation no vegetations on the aortic valve -- aortic valve is trileaflet pulmonary valve appears grossly normal without vegetations interatrial septum is anatomically normal without evidence of shunt with color-flow Doppler mild atherosclerotic disease in the aorta. on ceftriaxone see #2 (5) Pneumonia: Code(s): J18.9 - Pneumonia, unspecified organism Status: Acute Assessment and Plan: suggested by recent imaging (CXR + CT scan) on ceftriaxone (6) Influenza A: Code(s): J10.1 - Influenza due to other identified influenza virus with other respiratory manifestations Status: Acute Assessment and Plan: as noted by testing in ER completed course of Tamiflu (renally dosed) (7) Altered mental status: Code(s): R41.82 - Altered mental status, unspecified Status: Acute Assessment and Plan: noted in ER prior to intubation presumably due to acute illness (infection/sepsis/shock...etc) negative head CT reassess once extubated (8) Anemia: Qualifiers: Anemia type: unspecified type Qualified Code(s): D64.9 - Anemia, unspecified Code(s): D64.9 - Anemia, unspecified Status: Chronic Assessment and Plan: due to ESRD hold Retacrit since Hgb > 11 Hb above 13 today (9) Diabetes: Qualifiers: Diabetes mellitus type: type 2 Diabetes mellitus terminal supervisor insulin use: without fci use Diabetes mellitus complication status: with kidney complications Diabetes mellitus complication detail: with chronic kidney disease Chronic kidney disease stage: on chronic dialysis Qualified Code(s): E11.22 - Type 2 diabetes mellitus with diabetic chronic kidney disease; N18.6 - End stage renal disease; Z99.2 - Dependence on renal dialysis Code(s): E11.9 - Type 2 diabetes mellitus without complications Status: Chronic Assessment and Plan: follow accu-cheks glycemic control per hospitalist/maintainer operator Subjective Date/time seen: 10/17/24 09:31 Interval history: patient is extubated. He is weak but comfortable breathing. No pain Exam Narrative: General: pleasant male lying in the hospital bed in no acute distress Heart: IRRR, normal S1 and S2; no rub or gallop Lungs: Breath sounds symmetric and fairly clear Abdomen: soft, nontender, nondistended, positive bowel sounds Extremities:1+ chronic edema Skin: no rash Objective Data Vital Signs Vital Signs: Vital Signs - 24 hr 10/16/24 10:00 10/16/24 10:00 10/16/24 10:00 Temperature Pulse Rate 82 82 82 Respiratory Rate 23 H Blood Pressure 101/52 L 101/53 L Pulse Oximetry 97 Oxygen Delivery Oxygen Flow Rate Fraction of Inspired Oxygen 10/16/24 10:44 10/16/24 11:00 10/16/24 11:00 Temperature Pulse Rate 79 80 80 Respiratory Rate Blood Pressure 102/55 L 102/55 L Pulse Oximetry 98 Oxygen Delivery Mechanical Ventilation Oxygen Flow Rate Fraction of Inspired Oxygen 10/16/24 11:15 10/16/24 11:30 10/16/24 12:00 Temperature 99.4 F Pulse Rate 78 83 79 Respiratory Rate 23 H Blood Pressure 102/51 L 104/52 L 106/53 L Pulse Oximetry 98 Oxygen Delivery Oxygen Flow Rate Fraction of Inspired Oxygen 10/16/24 12:00 10/16/24 12:00 10/16/24 12:00 Temperature Pulse Rate 79 79 79 Respiratory Rate 22 H Blood Pressure 106/53 L Pulse Oximetry 99 Oxygen Delivery Nasal Cannula Oxygen Flow Rate 2 Fraction of Inspired Oxygen 10/16/24 14:00 10/16/24 14:00 10/16/24 14:00 Temperature Pulse Rate 76 70 76 Respiratory Rate 25 H Blood Pressure 106/55 L 106/55 L Pulse Oximetry 99 Oxygen Delivery Oxygen Flow Rate Fraction of Inspired Oxygen 10/16/24 14:03 10/16/24 16:00 10/16/24 16:00 Temperature 98.4 F Pulse Rate 73 70 73 Respiratory Rate 24 H 19 Blood Pressure 94/53 L Pulse Oximetry 95 Oxygen Delivery Oxygen Flow Rate Fraction of Inspired Oxygen 10/16/24 16:00 10/16/24 16:00 10/16/24 18:00 Temperature Pulse Rate 73 73 74 Respiratory Rate 19 Blood Pressure 99/54 L 95/53 L Pulse Oximetry 99 Oxygen Delivery Nasal Cannula Oxygen Flow Rate 2 Fraction of Inspired Oxygen 10/16/24 18:00 10/16/24 18:00 10/16/24 19:15 Temperature Pulse Rate 74 74 75 Respiratory Rate 24 H 19 Blood Pressure 95/53 L Pulse Oximetry 97 98 Oxygen Delivery Oxygen Flow Rate Fraction of Inspired Oxygen 10/16/24 19:30 10/16/24 19:45 10/16/24 20:00 Temperature Pulse Rate 70 76 73 Respiratory Rate 17 23 H Blood Pressure 104/58 L Pulse Oximetry 98 98 Oxygen Delivery Oxygen Flow Rate Fraction of Inspired Oxygen 10/16/24 20:00 10/16/24 20:00 10/16/24 20:00 Temperature Pulse Rate 70 74 69 Respiratory Rate 23 H 23 H Blood Pressure 104/58 L 116/62 Pulse Oximetry 98 97 Oxygen Delivery Oxygen Flow Rate Fraction of Inspired Oxygen 10/16/24 20:01 10/16/24 20:15 10/16/24 20:30 Temperature Pulse Rate 75 79 80 Respiratory Rate 18 22 H 23 H Blood Pressure Pulse Oximetry 98 98 97 Oxygen Delivery Oxygen Flow Rate Fraction of Inspired Oxygen 10/16/24 20:32 10/16/24 20:32 10/16/24 20:40 Temperature Pulse Rate 78 78 73 Respiratory Rate 18 18 21 H Blood Pressure Pulse Oximetry 97 100 Oxygen Delivery Nasal Cannula Nasal Cannula Oxygen Flow Rate 2 2 Fraction of Inspired Oxygen 10/16/24 20:45 10/16/24 21:00 10/16/24 21:15 Temperature Pulse Rate 73 69 79 Respiratory Rate 20 24 H 18 Blood Pressure Pulse Oximetry 100 100 97 Oxygen Delivery Oxygen Flow Rate Fraction of Inspired Oxygen 10/16/24 21:29 10/16/24 21:30 10/16/24 21:45 Temperature Pulse Rate 73 77 82 Respiratory Rate 19 26 H Blood Pressure 97/50 L Pulse Oximetry 99 97 Oxygen Delivery Oxygen Flow Rate Fraction of Inspired Oxygen 10/16/24 21:48 10/16/24 22:00 10/16/24 22:00 Temperature Pulse Rate 77 80 80 Respiratory Rate 20 Blood Pressure 95/49 L Pulse Oximetry Oxygen Delivery Oxygen Flow Rate Fraction of Inspired Oxygen 10/16/24 22:00 10/16/24 22:00 10/16/24 22:01 Temperature Pulse Rate 80 77 81 Respiratory Rate 23 H 26 H 25 H Blood Pressure 95/49 L 115/71 Pulse Oximetry 97 97 97 Oxygen Delivery Oxygen Flow Rate Fraction of Inspired Oxygen 10/16/24 22:15 10/16/24 22:30 10/16/24 22:37 Temperature Pulse Rate 77 83 79 Respiratory Rate 22 H 28 H Blood Pressure 74/41 L Pulse Oximetry 97 96 Oxygen Delivery Oxygen Flow Rate Fraction of Inspired Oxygen 10/16/24 22:45 10/16/24 23:00 10/16/24 23:15 Temperature Pulse Rate 82 80 82 Respiratory Rate 25 H 15 26 H Blood Pressure Pulse Oximetry 98 97 97 Oxygen Delivery Oxygen Flow Rate Fraction of Inspired Oxygen 10/16/24 23:30 10/16/24 23:45 10/17/24 00:00 Temperature Pulse Rate 81 77 80 Respiratory Rate 24 H 21 H Blood Pressure 95/54 L Pulse Oximetry 96 97 Oxygen Delivery Oxygen Flow Rate Fraction of Inspired Oxygen 10/17/24 00:00 10/17/24 00:00 10/17/24 00:00 Temperature 100.2 F H Pulse Rate 80 80 75 Respiratory Rate 23 H 23 H Blood Pressure 95/54 L Pulse Oximetry 97 97 Oxygen Delivery Nasal Cannula Oxygen Flow Rate 2 Fraction of Inspired Oxygen 10/17/24 00:00 10/17/24 00:01 10/17/24 00:10 Temperature Pulse Rate 78 77 81 Respiratory Rate 23 H 25 H Blood Pressure 98/57 L 87/48 L Pulse Oximetry 90 97 Oxygen Delivery Oxygen Flow Rate Fraction of Inspired Oxygen 10/17/24 00:15 10/17/24 00:30 10/17/24 00:45 Temperature Pulse Rate 76 78 77 Respiratory Rate 23 H 21 H 22 H Blood Pressure Pulse Oximetry 96 94 93 Oxygen Delivery Oxygen Flow Rate Fraction of Inspired Oxygen 10/17/24 01:00 10/17/24 01:15 10/17/24 01:30 Temperature Pulse Rate 79 85 79 Respiratory Rate 23 H 23 H 21 H Blood Pressure Pulse Oximetry 94 87 L 92 Oxygen Delivery Oxygen Flow Rate Fraction of Inspired Oxygen 10/17/24 01:45 10/17/24 02:00 10/17/24 02:00 Temperature Pulse Rate 76 78 78 Respiratory Rate 23 H 24 H Blood Pressure 103/55 L Pulse Oximetry 95 95 Oxygen Delivery Oxygen Flow Rate Fraction of Inspired Oxygen 10/17/24 02:00 10/17/24 02:00 10/17/24 02:01 Temperature Pulse Rate 78 75 77 Respiratory Rate 23 H 23 H Blood Pressure 103/55 L 112/66 Pulse Oximetry 94 92 Oxygen Delivery Oxygen Flow Rate Fraction of Inspired Oxygen 10/17/24 02:15 10/17/24 02:30 10/17/24 02:40 Temperature Pulse Rate 78 73 71 Respiratory Rate 22 H 22 H Blood Pressure 98/53 L Pulse Oximetry 95 93 Oxygen Delivery Oxygen Flow Rate Fraction of Inspired Oxygen 10/17/24 02:45 10/17/24 02:45 10/17/24 02:55 Temperature Pulse Rate 80 77 72 Respiratory Rate 24 H 24 H 24 H Blood Pressure Pulse Oximetry 95 Oxygen Delivery Oxygen Flow Rate Fraction of Inspired Oxygen 10/17/24 03:00 10/17/24 03:03 10/17/24 03:15 Temperature Pulse Rate 80 78 81 Respiratory Rate 24 H 24 H Blood Pressure 108/58 L Pulse Oximetry 100 96 Oxygen Delivery Oxygen Flow Rate Fraction of Inspired Oxygen 10/17/24 03:30 10/17/24 03:45 10/17/24 04:00 Temperature Pulse Rate 87 78 79 Respiratory Rate 22 H 23 H Blood Pressure 89/48 L Pulse Oximetry 92 92 Oxygen Delivery Oxygen Flow Rate Fraction of Inspired Oxygen 10/17/24 04:00 10/17/24 04:00 10/17/24 04:00 Temperature 99.6 F Pulse Rate 79 79 78 Respiratory Rate 23 H 23 H Blood Pressure 89/48 L Pulse Oximetry 91 91 Oxygen Delivery Nasal Cannula Oxygen Flow Rate 2 Fraction of Inspired Oxygen 10/17/24 04:00 10/17/24 04:01 10/17/24 04:15 Temperature Pulse Rate 83 83 81 Respiratory Rate 19 24 H 22 H Blood Pressure 102/68 Pulse Oximetry 93 95 91 Oxygen Delivery Oxygen Flow Rate Fraction of Inspired Oxygen 10/17/24 04:23 10/17/24 04:30 10/17/24 04:45 Temperature Pulse Rate 73 73 80 Respiratory Rate 22 H 22 H Blood Pressure 109/55 L Pulse Oximetry 93 93 Oxygen Delivery Oxygen Flow Rate Fraction of Inspired Oxygen 10/17/24 05:00 10/17/24 05:15 10/17/24 05:30 Temperature Pulse Rate 79 80 79 Respiratory Rate 22 H 22 H Blood Pressure 101/52 L Pulse Oximetry 96 95 Oxygen Delivery Oxygen Flow Rate Fraction of Inspired Oxygen 10/17/24 05:30 10/17/24 05:45 10/17/24 06:00 Temperature Pulse Rate 80 83 82 Respiratory Rate 22 H 24 H Blood Pressure Pulse Oximetry 98 92 Oxygen Delivery Oxygen Flow Rate Fraction of Inspired Oxygen 10/17/24 06:00 10/17/24 06:01 10/17/24 06:08 Temperature Pulse Rate 79 81 79 Respiratory Rate 23 H 25 H Blood Pressure 103/66 100/55 L Pulse Oximetry 93 94 Oxygen Delivery Oxygen Flow Rate Fraction of Inspired Oxygen 10/17/24 06:30 10/17/24 06:53 10/17/24 07:24 Temperature Pulse Rate 78 75 75 Respiratory Rate Blood Pressure 98/53 L 85/46 L 88/49 L Pulse Oximetry Oxygen Delivery Oxygen Flow Rate Fraction of Inspired Oxygen 10/17/24 08:00 10/17/24 08:00 10/17/24 08:00 Temperature Pulse Rate 76 74 Respiratory Rate Blood Pressure 104/56 L Pulse Oximetry 98 Oxygen Delivery Nasal Cannula Oxygen Flow Rate 2 Fraction of Inspired Oxygen 10/17/24 08:00 10/17/24 08:17 10/17/24 08:17 Temperature 98.2 F Pulse Rate 76 71 Respiratory Rate 22 H 21 H Blood Pressure 104/56 L Pulse Oximetry 97 97 Oxygen Delivery Nasal Cannula Oxygen Flow Rate 2 Fraction of Inspired Oxygen 10/17/24 08:33 Temperature Pulse Rate 74 Respiratory Rate 18 Blood Pressure Pulse Oximetry Oxygen Delivery Oxygen Flow Rate Fraction of Inspired Oxygen Intake/Output Intake/Output: Intake & Output 10/14/24 10/15/24 10/16/24 10/17/24 23:59 23:59 23:59 23:59 Intake Total 1574.1 2405.9 1896.4 309.8 Output Total 3500 3000 100 0 Balance -1925.9 -594.1 1796.4 309.8 Meds/Results Medications: Active Medications Generic Name Dose Route Start Last Admin Trade Name Freq PRN Reason Stop Dose Admin Acetaminophen 650 mg 10/08/24 20:49 Acetaminophen 650 Mg Suppository RECTAL Q6H PRN Mild Pain (1-3) or Fever Albuterol/Ipratropium 3 ml 10/09/24 14:00 10/17/24 08:17 Ipratropium 0.5 Mg/Albuterol Sulfate 2.5 Mg Ampul.Neb 3 Ml INHALATION 3 ml Q6HRT [facility] Administration Allopurinol 100 mg 10/09/24 08:00 10/16/24 09:02 Allopurinol 100 Mg Tablet PO 100 mg DAILY@0800 [facility] Administration Apixaban 2.5 mg 10/09/24 09:00 10/16/24 21:18 Apixaban 2.5 Mg Tablet PO Not Given Q12HR [facility] Atorvastatin Calcium 10 mg 10/09/24 09:00 10/16/24 09:02 Atorvastatin 10 Mg Tablet PO 10 mg DAILY [facility] Administration Budesonide 0.5 mg 10/09/24 20:00 10/17/24 08:17 Budesonide Respule Neb 0.5 Mg/2 Ml Amp INHALATION 0.5 mg Q12HRT [facility] Administration Dextrose 12.5 gm 10/08/24 22:06 Dextrose 50% 25 Gm/50 Ml Syringe IV PUSH PRN PRN Hypoglycemia Protocol Glucagon 1 mg 10/08/24 22:06 Glucagon For Inj 1 Mg Vial IM PRN PRN Hypoglycemia Protocol Glucose 15 gm 10/08/24 22:06 Glucose Oral Gel 15 Gm Of Glucse In 37.5 Gm Tube PO PRN PRN Hypoglycemia Protocol Hydrocortisone Sodium Succinate 50 mg 10/17/24 18:00 Hydrocortisone Sodium Succinate 100 Mg/2 Ml Vial IV PUSH Q12H [facility] Dextrose 1,000 mls @ 100 mls/hr 10/08/24 22:06 Dextrose 5% 1,000 Ml IVPB PRN PRN Hypoglycemia Protocol Ceftriaxone Sodium 2 gm in 100 mls @ 200 mls/hr 10/12/24 11:15 10/17/24 09:18 Rocephin 2 Gm/Ns 100 Ml IVPB 10/17/24 23:59 Infused DAILY [facility] Infusion Norepinephrine Bitartrate 8 mg in 250 mls @ 22.5 mls/hr 10/13/24 05:05 10/17/24 08:00 Levophed 8 Mg/D5w 250 Ml IV CONT 12 mcg/min .Q11H7M [facility] 22.5 mls/hr Titration Protocol 12 MCG/MIN Albumin Human 50 mls @ 999 mls/hr 10/14/24 06:24 10/15/24 17:30 Albutein IVPB 11/13/24 06:23 Infused Q10M PRN Infusion HYPOTENSION Insulin Aspart 4 - 8 units 10/11/24 12:00 10/17/24 08:41 Insulin Aspart (*Bkc) 100 Units/Ml SUB-Q Not Given Q4H [facility] Protocol Insulin Glargine 15 units 10/17/24 21:00 Insulin Glargine (*Bkc) 100 Units/Ml SUB-Q HS [facility] Midodrine 10 mg 10/15/24 13:00 10/16/24 17:57 Midodrine Hcl 10 Mg Tablet PO Not Given TID [facility] Multi-Ingred Cream/Lotion/Oil/Oint 1 applic 10/10/24 09:00 10/16/24 20:07 Mineral Oil/White Petrolatum Ointment EACH EYE Not Given Q12HR [facility] Neomycin/Polymyxin/Bacitracin 1 applic 10/17/24 09:00 10/17/24 08:47 Neomycin/Polymyxin/Bacitracin Ointment 15 Gm Tube TOPICAL 1 applic QAM [facility] Administration Pantoprazole Sodium 40 mg 10/09/24 13:45 10/17/24 08:33 Pantoprazole Sodium Iv 40 Mg Vial IV PUSH 40 mg QAM [facility] Administration Polyethylene Glycol 17 gm 10/15/24 10:25 10/16/24 09:02 Polyethylene Glycol 3350 17 Gm Powd.Pack PO 17 gm QAM [facility] Administration Fluticasone/Salmeterol 2 puff 10/09/24 08:00 10/09/24 09:26 Fluticasone/Salmeterol 115-21 Mcg Inhaler 1 Puff INHALATION Not Given Q12HRT [facility] Sevelamer Carbonate 1.6 gm 10/14/24 08:45 10/16/24 17:57 Sevelamer Carbonate 0.8 Gm Oral Powder Packet BY MOUTH Not Given TIDWM [facility] Sodium Chloride 10 ml 10/09/24 14:00 10/17/24 05:32 Central Line Flush IV PUSH 10 ml Q8HR [facility] Administration Sodium Chloride 20 ml 10/09/24 06:24 Central Line Flush IV PUSH PRN PRN after blood draws Radiology Results: ITS Impressions Pelvis X-Ray 10/08/24 22:22 IMPRESSION: As above. Head CT 10/08/24 23:18 IMPRESSION: No acute intracranial findings. Chest CT 10/08/24 23:27 IMPRESSION: 1. Interstitial thickening in the lower lobes which may indicate pneumonitis. Edema is less likely. 2. Cardiomegaly. 3. Cholelithiasis 4. Splenic cysts unchanged. Abdomen X-Ray 10/13/24 15:22 IMPRESSION: Nasogastric tube in good position and ready for immediate use. Chest X-Ray 10/17/24 06:46 IMPRESSION: Right basilar atelectasis versus pneumonia. Bilateral interstitial changes which may indicate pneumonitis versus pulmonary edema. Clinical correlation and follow-up advised. Labs Labs: Laboratory Results - last 24 hr 10/16/24 10/16/24 10/16/24 08:56 10:53 12:50 WBC RBC Hgb Hct MCV MCH MCHC RDW Plt Count MPV Immature Gran % (Auto) Neut % (Auto) Lymph % (Auto) [place] % (Auto) Eos % (Auto) Baso % (Auto) Lymph # (Auto) [place] # (Auto) Eos # (Auto) Baso # (Auto) Abs Immat Gran (auto) Absolute Neuts (auto) Absolute Nucleated RBC Band Neutrophils % Nucleated RBC % Platelet Estimate Anisocytosis Ovalocytes Schistocytes Puncture Site Artline ABG pH 7.434 ABG pCO2 36.5 ABG pO2 64.1 L ABG PO2/FiO2 Ratio 2.56 ABG HCO3 23.9 ABG O2 Saturation 93.2 L ABG O2 Content 19.0 ABG Base Excess 0.1 A-a Gradient 70.8 Oxyhemoglobin 90.4 Total Hemoglobin 15.0 O2 Delivery Device Ventilator O2 Liters/Min Not Reportable Minute Volume Not Reportable Vent Rate Not Reportable Vent Mode Spontaneous FiO2 25 Tidal Volume Not Reportable PEEP 5 Peak Inspir Pressure Not Reportable Pressure Support 8 Sodium Potassium Chloride Carbon Dioxide Anion Gap BUN Creatinine Estim Creat Clear Calc Estimated GFR Glucose POC Capillary Glucose 254 H 188 H Calcium Phosphorus Magnesium Total Bilirubin AST ALT Alkaline Phosphatase Total Protein Albumin 10/16/24 10/16/24 10/16/24 16:33 20:50 23:42 WBC RBC Hgb Hct MCV MCH MCHC RDW Plt Count MPV Immature Gran % (Auto) Neut % (Auto) Lymph % (Auto) [place] % (Auto) Eos % (Auto) Baso % (Auto) Lymph # (Auto) [place] # (Auto) Eos # (Auto) Baso # (Auto) Abs Immat Gran (auto) Absolute Neuts (auto) Absolute Nucleated RBC Band Neutrophils % Nucleated RBC % Platelet Estimate Anisocytosis Ovalocytes Schistocytes Puncture Site ABG pH ABG pCO2 ABG pO2 ABG PO2/FiO2 Ratio ABG HCO3 ABG O2 Saturation ABG O2 Content ABG Base Excess A-a Gradient Oxyhemoglobin Total Hemoglobin O2 Delivery Device O2 Liters/Min Minute Volume Vent Rate Vent Mode FiO2 Tidal Volume PEEP Peak Inspir Pressure Pressure Support Sodium Potassium Chloride Carbon Dioxide Anion Gap BUN Creatinine Estim Creat Clear Calc Estimated GFR Glucose POC Capillary Glucose 178 H 175 H 128 H Calcium Phosphorus Magnesium Total Bilirubin AST ALT Alkaline Phosphatase Total Protein Albumin 10/17/24 10/17/24 10/17/24 04:26 05:32 08:36 WBC 12.3 H RBC 4.47 L Hgb 13.9 L Hct 42.5 MCV 95.1 MCH 31.1 MCHC 32.7 RDW 17.2 H Plt Count 156 MPV 10.8 H Immature Gran % (Auto) 0.7 H Neut % (Auto) 89.6 H Lymph % (Auto) 3.[address] [place] % (Auto) 5.9 Eos % (Auto) 0.0 Baso % (Auto) 0.1 L Lymph # (Auto) 0.[address] [place] # (Auto) 0.7 H Eos # (Auto) 0.0 Baso # (Auto) 0.0 Abs Immat Gran (auto) 0.09 H Absolute Neuts (auto) 11.0 H Absolute Nucleated RBC 0.000 Band Neutrophils % Not Reportable Nucleated RBC % 0.0 Platelet Estimate Adequate Anisocytosis 1+ Ovalocytes 1+ Schistocytes None seen Puncture Site ABG pH ABG pCO2 ABG pO2 ABG PO2/FiO2 Ratio ABG HCO3 ABG O2 Saturation ABG O2 Content ABG Base Excess A-a Gradient Oxyhemoglobin Total Hemoglobin O2 Delivery Device O2 Liters/Min Minute Volume Vent Rate Vent Mode FiO2 Tidal Volume PEEP Peak Inspir Pressure Pressure Support Sodium 136 L Potassium 4.7 Chloride 96 L Carbon Dioxide 26 Anion Gap 14 H BUN 93 H D Creatinine 5.54 H Estim Creat Clear Calc 10 Estimated GFR 10 L Glucose 116 H POC Capillary Glucose 117 H 80 Calcium 8.2 L Phosphorus 3.2 Magnesium 2.3 Total Bilirubin 1.7 H AST 29 ALT 18 Alkaline Phosphatase 116 Total Protein 7.0 Albumin 3.4 L
[2024-10-17] MEDS: NOREPINEPHRINE 8 MG/D5W 250 ML 8 MG/250 ML BAG 22.5 MG IV CONT (09:44)
[2024-10-17] MEDS: DEXTROSE 50% 25 GM/50 ML SYRINGE IV PUSH ×2 (09:53→21:46)
[2024-10-17 11:33] LABS: Glucose Point of Care 129 mg/dl (65-105)
--- NOTE | 2024-10-17 13:14 | PCSTNOTE ---
Please refer to the Bedside Swallow Evaluation in the EMR. Please note, silent aspiration cannot be ruled out at bedside. This 84 year old male pt was admitted on 10/08 due to altered mental status. He was intubated on 10/08, was being tube fed, and was recently extubated on 10/16. ST completed a BSE this date to assess the safety of the pts swallow during oral intake. The pt has been NPO since being extubated on 10/16 and the night nurse last night stated that she gave the pt small sips of water and he immediately coughed and did not stop for a while. His was present during the BSE and stated that he did not have any trouble swallowing prior to being admitted to the hospital. The pts overall vocal quality at this time is weak and hoarse due to extubation. The pt was sitting up in bed for this evaluation, but continued to lean to his right. Pt attempted to sit straight but verbalized I can't, I'm trying . ST verbalized understanding and lifted the bed further up to ensure safe swallowing positioning. Trials of ice chips were provided via spoon. On the first 2 trials the pt cleared his throat and on the last 2 trials the pt was coughing and sounded wet/gurgly. Laryngeal elevation was weak on all trials, and swallow initiation was timely for the first trial but began to weaken as trials continued. BSE was discontinued at this time. Please note that silent aspiration cannot be ruled out at bedside. Due to vocal quality becoming wet/gurgly, the pt coughing/throat clearing, delayed triggering of the swallow, and reduced laryngeal elevation, it is recommended that this pt be NPO until the completion of a MBS. The MBS cannot be completed today, 10/17 due to a Radiologist not being on site. MBS to be completed tomorrow, 10/18. Dr. Mercer and CARMEN Kohler were notified of BSE results and recommendations. Thank you for this referral.
--- NOTE | 2024-10-17 15:27 | P.PNIM_ITS ---
Progress Note: A&P Assessment and Plan (1) Sepsis: Code(s): A41.9 - Sepsis, unspecified organism Status: Acute (2) Influenza: Code(s): J11.1 - Influenza due to unidentified influenza virus with other respiratory manifestations Status: Acute (3) Pneumonia: Code(s): J18.9 - Pneumonia, unspecified organism Status: Acute (4) Altered mental status: Code(s): R41.82 - Altered mental status, unspecified Status: Acute (5) End-stage renal disease on hemodialysis: Code(s): N18.6 - End stage renal disease; Z99.2 - Dependence on renal dialysis Status: Acute (6) Type 2 diabetes mellitus with diabetic neuropathy: Qualifiers: Diabetes mellitus long term care administrator insulin use: without long term care administrator use Qualified Code(s): E11.40 - Type 2 diabetes mellitus with diabetic neuropathy, unspecified Code(s): E11.40 - Type 2 diabetes mellitus with diabetic neuropathy, unspecified Status: Chronic Plan The patient presented to the emergency department for evaluation of altered mental status following dialysis as detailed in HPI. Labs, imaging, EKG, and all reports were personally reviewed. He meets sepsis criteria with hypotension, low-grade fever, bandemia, lactic acidosis, and altered mental status in the setting of infection. He remained hypotensive following a 1.5 L normal saline bolus (more fluids were not given due to his end-stage renal disease) and he has been started on vasopressors with a target MAP of at least 65. He tested positive for influenza A and chest x-ray shows findings of possible pneumonia for which he has been started on oseltamivir and azithromycin, ceftriaxone, and vancomycin. MRSA nasal screen pending. Sputum culture ordered. There were no reports of obvious focal deficits on exam in the ED and his altered mental status may very well be related to sepsis, influenza, and hypotension. Brain CT was without acute findings. Initiate sliding scale insulin, Accu-Cheks, and hypoglycemic protocol. He will be due for dialysis on Friday. His medications will be reviewed and resumed as appropriate. Findings and treatment plan were discussed with the patient's . Questions were solicited and answered to satisfaction. The patient's medical management will be taken over by the hospitalist team in a.m. patient presented with hypotension and confusion, patient was intubated and on ventilator, patient is receiving IVF and on pressor, discussed with loan processor patient blood pressure is improving and his off pressors, patient is found to have Influenza A treated with Tamiflu patient's and son are present in the room, on 10/13 patient had ROBERT there is no evidence endocarditis, patient is clinically improving and discussed with loan processor plan give weaning trial, on 10/16 patient was extubated and tolerating, failed bedside swallow study today, will have MBS tomorrow, patient still remains on pressors, patient and son are present, patient is seen by loan processor and further recommendation to follow. patient presented with hypotension and confusion, patient was intubated and on ventilator, patient is receiving IVF and on pressor, discussed with loan processor patient blood pressure is improving and his off pressors, patient is found to have Influenza A treated with Tamiflu patient's and son are present in the room, on 10/13 patient had ROBERT there is no evidence endocarditis, patient is clinically improving and discussed with loan processor plan give weaning trial, on 10/16 patient was extubated and tolerating, failed bedside swallow study today, will have MBS tomorrow, patient still remains on pressors, patient and son are present, patient is seen by loan processor and further recommendation to follow. Subjective Date/time seen: 10/17/24 15:27 Interval history: Altered mental status. H&P-Narrative: This is an 84-year-old male with end-stage renal disease on hemodialysis, congestive heart failure, pulmonary hypertension, type 2 diabetes mellitus, atrial fibrillation on anticoagulation, hypertension, chronic anemia, and other comorbidities who presented to the emergency department via EMS for evaluation of altered mental status after dialysis. He was intubated in the emergency department and the following history is obtained from the patient's as well as review of his electronic medical records. He went to dialysis at 05:00 and completed a session. His that time he has reportedly been increasingly confused, mumbling to himself and not making any sense. In the ED his only complaint was that of not feeling well but he did not elaborate. reports that he had a bit of a cough yesterday which she believes was nonproductive. There were no reports of fever, cold and flu symptoms, vomiting, or diarrhea. In the ED: Vital signs on arrival include a temperature of 99.8?, blood pressure 72/37, pulse 87, respiratory 22, SpO2 95%. Labs were significant for WBC count of 7.9 with 10 bands noted on manual differential, sodium 136, chloride 92, carbon dioxide 34, BUN 26, creatinine 3.68, lactic acid 2.9, calcium 7.9, total bilirubin 2.1. He tested positive for influenza A. Chest x-ray showed bilateral social pneumonitis versus pulmonary edema. Blood pressure continue to drift down words and he was given a 1500 mL bolus of normal saline without much improvement. The decision was made to put in the central line and start the patient on vasopressors however the patient had difficulties lying still for central line placement and he was sedated and eventually intubated and he is being admitted to the ICU in this setting with hypotension, influenza, pneu monia, and altered mental status. patient presented with hypotension and confusion, patient was intubated and on ventilator, patient is receiving IVF and on pressor, discussed with loan processor patient blood pressure is improving and his off pressors, patient is found to have Influenza A treated with Tamiflu patient's and son are present in the room, on 10/13 patient had ROBERT there is no evidence endocarditis, patient is clinically improving and discussed with loan processor plan give weaning trial, on 10/16 patient was extubated and tolerating, failed bedside swallow study today, will have MBS tomorrow, patient still remains on pressors, patient and son are present, patient is seen by loan processor and further recommendation to follow. Review of Systems Review of Systems: ROS unobtainable: Yes unobtainable due to medical condition Exam Narrative: Patient is comfortable, NAD HEENT: clear LUNGS:CTA HEART: RR S1S2 ABD: BS+, Soft and nontender Lower extremities: no edema SKIN: nonjaundiced Neuro: still somewhat sedated Objective Data Vital Signs Vital Signs: Vital Signs - 24 hr 10/16/24 16:00 10/16/24 16:00 10/16/24 16:00 Temperature 36.9 C Pulse Rate 70 73 73 Respiratory Rate 19 19 Blood Pressure 94/53 L Pulse Oximetry 95 99 Oxygen Delivery Nasal Cannula Oxygen Flow Rate 2 10/16/24 16:00 10/16/24 18:00 10/16/24 18:00 Temperature Pulse Rate 73 74 74 Respiratory Rate Blood Pressure 99/54 L 95/53 L Pulse Oximetry Oxygen Delivery Oxygen Flow Rate 10/16/24 18:00 10/16/24 19:15 10/16/24 19:30 Temperature Pulse Rate 74 75 70 Respiratory Rate 24 H 19 17 Blood Pressure 95/53 L Pulse Oximetry 97 98 98 Oxygen Delivery Oxygen Flow Rate 10/16/24 19:45 10/16/24 20:00 10/16/24 20:00 Temperature Pulse Rate 76 73 70 Respiratory Rate 23 H Blood Pressure 104/58 L Pulse Oximetry 98 Oxygen Delivery Oxygen Flow Rate 10/16/24 20:00 10/16/24 20:00 10/16/24 20:01 Temperature Pulse Rate 74 69 75 Respiratory Rate 23 H 23 H 18 Blood Pressure 104/58 L 116/62 Pulse Oximetry 98 97 98 Oxygen Delivery Oxygen Flow Rate 10/16/24 20:15 10/16/24 20:30 10/16/24 20:32 Temperature Pulse Rate 79 80 78 Respiratory Rate 22 H 23 H 18 Blood Pressure Pulse Oximetry 98 97 97 Oxygen Delivery Nasal Cannula Oxygen Flow Rate 2 10/16/24 20:32 10/16/24 20:40 10/16/24 20:45 Temperature Pulse Rate 78 73 73 Respiratory Rate 18 21 H 20 Blood Pressure Pulse Oximetry 100 100 Oxygen Delivery Nasal Cannula Oxygen Flow Rate 2 10/16/24 21:00 10/16/24 21:15 10/16/24 21:29 Temperature Pulse Rate 69 79 73 Respiratory Rate 24 H 18 Blood Pressure 97/50 L Pulse Oximetry 100 97 Oxygen Delivery Oxygen Flow Rate 10/16/24 21:30 10/16/24 21:45 10/16/24 21:48 Temperature Pulse Rate 77 82 77 Respiratory Rate 19 26 H 20 Blood Pressure Pulse Oximetry 99 97 Oxygen Delivery Oxygen Flow Rate 10/16/24 22:00 10/16/24 22:00 10/16/24 22:00 Temperature Pulse Rate 80 80 80 Respiratory Rate 23 H Blood Pressure 95/49 L 95/49 L Pulse Oximetry 97 Oxygen Delivery Oxygen Flow Rate 10/16/24 22:00 10/16/24 22:01 10/16/24 22:15 Temperature Pulse Rate 77 81 77 Respiratory Rate 26 H 25 H 22 H Blood Pressure 115/71 Pulse Oximetry 97 97 97 Oxygen Delivery Oxygen Flow Rate 10/16/24 22:30 10/16/24 22:37 10/16/24 22:45 Temperature Pulse Rate 83 79 82 Respiratory Rate 28 H 25 H Blood Pressure 74/41 L Pulse Oximetry 96 98 Oxygen Delivery Oxygen Flow Rate 10/16/24 23:00 10/16/24 23:15 10/16/24 23:30 Temperature Pulse Rate 80 82 81 Respiratory Rate 15 26 H 24 H Blood Pressure Pulse Oximetry 97 97 96 Oxygen Delivery Oxygen Flow Rate 10/16/24 23:45 10/17/24 00:00 10/17/24 00:00 Temperature Pulse Rate 77 80 80 Respiratory Rate 21 H 23 H Blood Pressure 95/54 L Pulse Oximetry 97 97 Oxygen Delivery Nasal Cannula Oxygen Flow Rate 2 10/17/24 00:00 10/17/24 00:00 10/17/24 00:00 Temperature 37.9 C H Pulse Rate 80 75 78 Respiratory Rate 23 H 23 H Blood Pressure 95/54 L Pulse Oximetry 97 90 Oxygen Delivery Oxygen Flow Rate 10/17/24 00:01 10/17/24 00:10 10/17/24 00:15 Temperature Pulse Rate 77 81 76 Respiratory Rate 25 H 23 H Blood Pressure 98/57 L 87/48 L Pulse Oximetry 97 96 Oxygen Delivery Oxygen Flow Rate 10/17/24 00:30 10/17/24 00:45 10/17/24 01:00 Temperature Pulse Rate 78 77 79 Respiratory Rate 21 H 22 H 23 H Blood Pressure Pulse Oximetry 94 93 94 Oxygen Delivery Oxygen Flow Rate 10/17/24 01:15 10/17/24 01:30 10/17/24 01:45 Temperature Pulse Rate 85 79 76 Respiratory Rate 23 H 21 H 23 H Blood Pressure Pulse Oximetry 87 L 92 95 Oxygen Delivery Oxygen Flow Rate 10/17/24 02:00 10/17/24 02:00 10/17/24 02:00 Temperature Pulse Rate 78 78 78 Respiratory Rate 24 H Blood Pressure 103/55 L 103/55 L Pulse Oximetry 95 Oxygen Delivery Oxygen Flow Rate 10/17/24 02:00 10/17/24 02:01 10/17/24 02:15 Temperature Pulse Rate 75 77 78 Respiratory Rate 23 H 23 H 22 H Blood Pressure 112/66 Pulse Oximetry 94 92 95 Oxygen Delivery Oxygen Flow Rate 10/17/24 02:30 10/17/24 02:40 10/17/24 02:45 Temperature Pulse Rate 73 71 80 Respiratory Rate 22 H 24 H Blood Pressure 98/53 L Pulse Oximetry 93 Oxygen Delivery Oxygen Flow Rate 10/17/24 02:45 10/17/24 02:55 10/17/24 03:00 Temperature Pulse Rate 77 72 80 Respiratory Rate 24 H 24 H 24 H Blood Pressure Pulse Oximetry 95 100 Oxygen Delivery Oxygen Flow Rate 10/17/24 03:03 10/17/24 03:15 10/17/24 03:30 Temperature Pulse Rate 78 81 87 Respiratory Rate 24 H 22 H Blood Pressure 108/58 L Pulse Oximetry 96 92 Oxygen Delivery Oxygen Flow Rate 10/17/24 03:45 10/17/24 04:00 10/17/24 04:00 Temperature Pulse Rate 78 79 79 Respiratory Rate 23 H 23 H Blood Pressure 89/48 L Pulse Oximetry 92 91 Oxygen Delivery Nasal Cannula Oxygen Flow Rate 2 10/17/24 04:00 10/17/24 04:00 10/17/24 04:00 Temperature 37.6 C Pulse Rate 79 78 83 Respiratory Rate 23 H 19 Blood Pressure 89/48 L 102/68 Pulse Oximetry 91 93 Oxygen Delivery Oxygen Flow Rate 10/17/24 04:01 10/17/24 04:15 10/17/24 04:23 Temperature Pulse Rate 83 81 73 Respiratory Rate 24 H 22 H Blood Pressure 109/55 L Pulse Oximetry 95 91 Oxygen Delivery Oxygen Flow Rate 10/17/24 04:30 10/17/24 04:45 10/17/24 05:00 Temperature Pulse Rate 73 80 79 Respiratory Rate 22 H 22 H 22 H Blood Pressure Pulse Oximetry 93 93 96 Oxygen Delivery Oxygen Flow Rate 10/17/24 05:15 10/17/24 05:30 10/17/24 05:30 Temperature Pulse Rate 80 79 80 Respiratory Rate 22 H 22 H Blood Pressure 101/52 L Pulse Oximetry 95 98 Oxygen Delivery Oxygen Flow Rate 10/17/24 05:45 10/17/24 06:00 10/17/24 06:00 Temperature Pulse Rate 83 82 79 Respiratory Rate 24 H 23 H Blood Pressure 103/66 Pulse Oximetry 92 93 Oxygen Delivery Oxygen Flow Rate 10/17/24 06:01 10/17/24 06:08 10/17/24 06:30 Temperature Pulse Rate 81 79 78 Respiratory Rate 25 H Blood Pressure 100/55 L 98/53 L Pulse Oximetry 94 Oxygen Delivery Oxygen Flow Rate 10/17/24 06:53 10/17/24 07:24 10/17/24 08:00 Temperature Pulse Rate 75 75 76 Respiratory Rate Blood Pressure 85/46 L 88/49 L 104/56 L Pulse Oximetry Oxygen Delivery Oxygen Flow Rate 10/17/24 08:00 10/17/24 08:00 10/17/24 08:00 Temperature 36.8 C Pulse Rate 74 76 Respiratory Rate 22 H Blood Pressure 104/56 L Pulse Oximetry 98 97 Oxygen Delivery Nasal Cannula Oxygen Flow Rate 2 10/17/24 08:17 10/17/24 08:17 10/17/24 08:33 Temperature Pulse Rate 71 74 Respiratory Rate 21 H 18 Blood Pressure Pulse Oximetry 97 Oxygen Delivery Nasal Cannula Oxygen Flow Rate 2 10/17/24 09:43 10/17/24 09:44 10/17/24 10:00 Temperature 36.7 C Pulse Rate 77 77 75 Respiratory Rate 21 H Blood Pressure 95/56 L 95/56 L 115/58 L Pulse Oximetry 98 Oxygen Delivery Oxygen Flow Rate 10/17/24 10:00 10/17/24 10:00 10/17/24 12:00 Temperature Pulse Rate 76 76 Respiratory Rate Blood Pressure 97/55 L Pulse Oximetry 97 Oxygen Delivery Nasal Cannula Oxygen Flow Rate 2 10/17/24 12:00 10/17/24 12:00 10/17/24 12:00 Temperature 36.7 C Pulse Rate 73 78 73 Respiratory Rate 24 H Blood Pressure 116/60 96/59 L Pulse Oximetry 99 Oxygen Delivery Oxygen Flow Rate 10/17/24 14:10 10/17/24 14:10 10/17/24 14:23 Temperature Pulse Rate 82 77 Respiratory Rate 19 20 Blood Pressure Pulse Oximetry 98 Oxygen Delivery Nasal Cannula Oxygen Flow Rate 2 10/17/24 15:03 Temperature Pulse Rate Respiratory Rate Blood Pressure Pulse Oximetry 96 Oxygen Delivery Nasal Cannula Oxygen Flow Rate 1 Intake/Output Intake/Output: Intake & Output 10/14/24 10/15/24 10/16/24 10/17/24 23:59 23:59 23:59 23:59 Intake Total 1574.1 2405.9 1896.4 400.8 Output Total 3500 3000 100 0 Balance -1925.9 -594.1 1796.4 400.8 Meds/Results Medications: Active Medications Generic Name Dose Route Start Last Admin Trade Name Freq PRN Reason Stop Dose Admin Acetaminophen 650 mg 10/08/24 20:49 Acetaminophen 650 Mg Suppository RECTAL Q6H PRN Mild Pain (1-3) or Fever Albuterol/Ipratropium 3 ml 10/09/24 14:00 10/17/24 14:09 Ipratropium 0.5 Mg/Albuterol Sulfate 2.5 Mg Ampul.Neb 3 Ml INHALATION 3 ml Q6HRT CESAR Administration Allopurinol 100 mg 10/09/24 08:00 10/17/24 13:01 Allopurinol 100 Mg Tablet PO Not Given DAILY@0800 CESAR Apixaban 2.5 mg 10/09/24 09:00 10/17/24 13:01 Apixaban 2.5 Mg Tablet PO Not Given Q12HR CESAR Atorvastatin Calcium 10 mg 10/09/24 09:00 10/17/24 13:01 Atorvastatin 10 Mg Tablet PO Not Given DAILY CESAR Budesonide 0.5 mg 10/09/24 20:00 10/17/24 08:17 Budesonide Respule Neb 0.5 Mg/2 Ml Amp INHALATION 0.5 mg Q12HRT CESAR Administration Dextrose 12.5 gm 10/08/24 22:06 10/17/24 09:53 Dextrose 50% 25 Gm/50 Ml Syringe IV PUSH 12.5 gm PRN PRN Administration Hypoglycemia Protocol Glucagon 1 mg 10/08/24 22:06 Glucagon For Inj 1 Mg Vial IM PRN PRN Hypoglycemia Protocol Glucose 15 gm 10/08/24 22:06 Glucose Oral Gel 15 Gm Of Glucse In 37.5 Gm Tube PO PRN PRN Hypoglycemia Protocol Hydrocortisone Sodium Succinate 50 mg 10/17/24 18:00 Hydrocortisone Sodium Succinate 100 Mg/2 Ml Vial IV PUSH Q12H CESAR Dextrose 1,000 mls @ 100 mls/hr 10/08/24 22:06 Dextrose 5% 1,000 Ml IVPB PRN PRN Hypoglycemia Protocol Ceftriaxone Sodium 2 gm in 100 mls @ 200 mls/hr 10/12/24 11:15 10/17/24 09:18 Rocephin 2 Gm/Ns 100 Ml IVPB 10/17/24 23:59 Infused DAILY [facility] Infusion Norepinephrine Bitartrate 8 mg in 250 mls @ 22.5 mls/hr 10/13/24 05:05 10/17/24 12:00 Levophed 8 Mg/D5w 250 Ml IV CONT 12 mcg/min .Q11H7M CESAR 22.5 mls/hr Titration Protocol 12 MCG/MIN Albumin Human 50 mls @ 999 mls/hr 10/14/24 06:24 10/15/24 17:30 Albutein IVPB 11/13/24 06:23 Infused Q10M PRN Infusion HYPOTENSION Albumin Human 50 mls @ 999 mls/hr 10/17/24 09:36 Albutein IVPB 10/18/24 09:35 Q10M PRN HYPOTENSION Insulin Aspart 4 - 8 units 10/11/24 12:00 10/17/24 11:32 Insulin Aspart (*Bkc) 100 Units/Ml SUB-Q Not Given Q4H CESAR Protocol Insulin Glargine 15 units 10/17/24 21:00 Insulin Glargine (*Bkc) 100 Units/Ml SUB-Q HS CESAR Midodrine 10 mg 10/15/24 13:00 10/17/24 13:04 Midodrine Hcl 10 Mg Tablet PO Not Given TID CESAR Multi-Ingred Cream/Lotion/Oil/Oint 1 applic 10/10/24 09:00 10/17/24 13:02 Mineral Oil/White Petrolatum Ointment EACH EYE Not Given Q12HR CESAR Neomycin/Polymyxin/Bacitracin 1 applic 10/17/24 09:00 10/17/24 08:47 Neomycin/Polymyxin/Bacitracin Ointment 15 Gm Tube TOPICAL 1 applic QAM CESAR Administration Pantoprazole Sodium 40 mg 10/09/24 13:45 10/17/24 08:33 Pantoprazole Sodium Iv 40 Mg Vial IV PUSH 40 mg QAM CESAR Administration Polyethylene Glycol 17 gm 10/15/24 10:25 10/17/24 13:02 Polyethylene Glycol 3350 17 Gm Powd.Pack PO Not Given QAM CESAR Fluticasone/Salmeterol 2 puff 10/09/24 08:00 10/09/24 09:26 Fluticasone/Salmeterol 115-21 Mcg Inhaler 1 Puff INHALATION Not Given Q12HRT CESAR Sevelamer Carbonate 1.6 gm 10/14/24 08:45 10/17/24 13:04 Sevelamer Carbonate 0.8 Gm Oral Powder Packet BY MOUTH Not Given TIDWM CESAR Sodium Chloride 10 ml 10/09/24 14:00 10/17/24 05:32 Central Line Flush IV PUSH 10 ml Q8HR CESAR Administration Sodium Chloride 20 ml 10/09/24 06:24 Central Line Flush IV PUSH PRN PRN after blood draws Radiology Results: ITS Impressions Pelvis X-Ray 10/08/24 22:22 IMPRESSION: As above. Head CT 10/08/24 23:18 IMPRESSION: No acute intracranial findings. Chest CT 10/08/24 23:27 IMPRESSION: 1. Interstitial thickening in the lower lobes which may indicate pneumonitis. Edema is less likely. 2. Cardiomegaly. 3. Cholelithiasis 4. Splenic cysts unchanged. Abdomen X-Ray 10/13/24 15:22 IMPRESSION: Nasogastric tube in good position and ready for immediate use. Chest X-Ray 10/17/24 06:46 IMPRESSION: Right basilar atelectasis versus pneumonia. Bilateral interstitial changes which may indicate pneumonitis versus pulmonary edema. Clinical correlation and follow-up advised. Labs Labs: Laboratory Results - last 24 hr 10/16/24 10/16/24 10/16/24 16:33 20:50 23:42 WBC RBC Hgb Hct MCV MCH MCHC RDW Plt Count MPV Immature Gran % (Auto) Neut % (Auto) Lymph % (Auto) [place] % (Auto) Eos % (Auto) Baso % (Auto) Lymph # (Auto) [place] # (Auto) Eos # (Auto) Baso # (Auto) Abs Immat Gran (auto) Absolute Neuts (auto) Absolute Nucleated RBC Band Neutrophils % Nucleated RBC % Platelet Estimate Anisocytosis Ovalocytes Schistocytes Sodium Potassium Chloride Carbon Dioxide Anion Gap BUN Creatinine Estim Creat Clear Calc Estimated GFR Glucose POC Capillary Glucose 178 H 175 H 128 H Calcium Phosphorus Magnesium Total Bilirubin AST ALT Alkaline Phosphatase Total Protein Albumin 10/17/24 10/17/24 10/17/24 04:26 05:32 08:36 WBC 12.3 H RBC 4.47 L Hgb 13.9 L Hct 42.5 MCV 95.1 MCH 31.1 MCHC 32.7 RDW 17.2 H Plt Count 156 MPV 10.8 H Immature Gran % (Auto) 0.7 H Neut % (Auto) 89.6 H Lymph % (Auto) 3.7 L [place] % (Auto) 5.9 Eos % (Auto) 0.0 Baso % (Auto) 0.1 L Lymph # (Auto) 0.45 L [place] # (Auto) 0.7 H Eos # (Auto) 0.0 Baso # (Auto) 0.0 Abs Immat Gran (auto) 0.09 H Absolute Neuts (auto) 11.0 H Absolute Nucleated RBC 0.000 Band Neutrophils % Not Reportable Nucleated RBC % 0.0 Platelet Estimate Adequate Anisocytosis 1+ Ovalocytes 1+ Schistocytes None seen Sodium 136 L Potassium 4.7 Chloride 96 L Carbon Dioxide 26 Anion Gap 14 H BUN 93 H D Creatinine 5.54 H Estim Creat Clear Calc 10 Estimated GFR 10 L Glucose 116 H POC Capillary Glucose 117 H 80 Calcium 8.2 L Phosphorus 3.2 Magnesium 2.3 Total Bilirubin 1.7 H AST 29 ALT 18 Alkaline Phosphatase 116 Total Protein 7.0 Albumin 3.4 L 10/17/24 11:29 WBC RBC Hgb Hct MCV MCH MCHC RDW Plt Count MPV Immature Gran % (Auto) Neut % (Auto) Lymph % (Auto) [place] % (Auto) Eos % (Auto) Baso % (Auto) Lymph # (Auto) [place] # (Auto) Eos # (Auto) Baso # (Auto) Abs Immat Gran (auto) Absolute Neuts (auto) Absolute Nucleated RBC Band Neutrophils % Nucleated RBC % Platelet Estimate Anisocytosis Ovalocytes Schistocytes Sodium Potassium Chloride Carbon Dioxide Anion Gap BUN Creatinine Estim Creat Clear Calc Estimated GFR Glucose POC Capillary Glucose 129 H Calcium Phosphorus Magnesium Total Bilirubin AST ALT Alkaline Phosphatase Total Protein Albumin Quality VTE Prophylaxis VTE prophylaxis: mechanical ordered
[2024-10-17] MEDS: HYDROCORTISONE SODIUM SUCCINATE 100 MG/2 ML VIAL 50 MG IV PUSH (17:39)
[2024-10-17 18:04] LABS: Glucose Point of Care 94 mg/dl (65-105)
[2024-10-17 20:39] LABS: Glucose Point of Care 97 mg/dl (65-105)
--- NOTE | 2024-10-17 21:15 | PC.NURSE ---
Dr Mercer called to make aware of blood sugar 97 and that levophed is already mixed in D5W. Patient received D50 on days for blood sugars 80 and 90. Order received to administer one amp D50 and verified that Lantus was on hold.
[2024-10-17 22:00] LABS: Basophils Percent Auto 0.2 % (0.2-1.2); Hematocrit 39.6 % (42.0-52.0); Hemoglobin 13.1 g/dL (14.0-18.0); Immature Granulocyte Absolute 0.07 K/mm3 (0.00-0.031); Immature Granulocyte Percent A 0.5 % (0-0.5); Lymphocytes Absolute Auto 0.48 K/mm3 (0.9-3.2); Lymphocytes Percent Auto 3.7 % (18.3-44.2); Mean Corpuscular HGB Conc 33.1 g/dl (32-36); Mean Corpuscular Hemoglobin 31.1 pg (26-34); Mean Corpuscular Volume 94.1 fl (80-100); Mean Platelet Volume 10.8 fl (7.4-10.4); Monocytes Percent Auto 7.5 % (2.6-8.5); Neutrophils Absolute Auto 11.6 K/mm3 (1.3-6.7); Neutrophils Percent Auto 88.1 % (45.5-73.1); Platelet Count Result 153 k/mm3 (150-375); Red Blood Count 4.21 M/mm3 (4.6-6.20); Red Cell Distribution Width 17.2 % (11.5-14.5); White Blood Count 13.1 K/mm3 (4.5-10.0)
--- NOTE | 2024-10-17 22:01 | PC.NURSE ---
213 Dr Mercer called due to patient missing last 3 doses of eliquis, because of inability to swallow, and being chronic Afib. MD also made aware SCD not on due to bruising on legs. Heparin drip, per Afib protocol, ordered.
[2024-10-17 22:10] LABS: INR 1.6; Prothrombin Time 19.5 Seconds (11.1-14.7)
[2024-10-17 22:11] LABS: Partial Thromboplastin Time 27.4 Seconds (22.3-36.8)
[2024-10-17 22:12] LABS: Anisocytosis 1+; Hypochromasia 1+; Large Platelets Present; Platelet Estimate Slightly Decreased (Adequate)
[2024-10-17 22:13] LABS: Atypical Lymphocytes Present; Ovalocytes 1+; Schistocytes None Seen
[2024-10-17] MEDS: NOREPINEPHRINE 8 MG/D5W 250 ML 8 MG/250 ML BAG 20.63 MG IV CONT (22:27)
[2024-10-17] MEDS: HEPARIN SOD/D5W 100 UNITS/ML 25,000 UNITS/250 ML BAG 13 UNITS IV CONT (22:28)
[2024-10-17] MEDS: HEPARIN SODIUM 5,000 UNITS/ML VIAL 6000 UNITS IV PUSH (22:28)
[2024-10-18] VITALS (81 sets, daily range): BP systolic 84–119; BP diastolic 43–82; PULSE 65–96; RESP 11–23; TEMP 36.5–37.4; O2SAT 93–100; BMI 32.8
[2024-10-18 00:28] LABS: Glucose Point of Care 133 mg/dl (65-105)
[2024-10-18] MEDS: IPRATROPIUM 0.5 MG/ALBUTEROL SULFATE 2.5 MG AMPUL.NEB 3 ML INHALATION ×3 (02:08→20:43)
[2024-10-18 04:19] LABS: Glucose Point of Care 122 mg/dl (65-105)
[2024-10-18 05:00] LABS: Basophils Percent Auto 0.1 % (0.2-1.2); Hematocrit 40.3 % (42.0-52.0); Hemoglobin 13.2 g/dL (14.0-18.0); Immature Granulocyte Absolute 0.06 K/mm3 (0.00-0.031); Immature Granulocyte Percent A 0.5 % (0-0.5); Lymphocytes Absolute Auto 0.57 K/mm3 (0.9-3.2); Lymphocytes Percent Auto 5.2 % (18.3-44.2); Mean Corpuscular HGB Conc 32.8 g/dl (32-36); Mean Corpuscular Volume 94.6 fl (80-100); Monocytes Absolute Auto 1.1 K/mm3 (0.1-0.6); Monocytes Percent Auto 10.4 % (2.6-8.5); Neutrophils Absolute Auto 9.2 K/mm3 (1.3-6.7); Neutrophils Percent Auto 83.8 % (45.5-73.1); Platelet Count Result 157 k/mm3 (150-375); Red Blood Count 4.26 M/mm3 (4.6-6.20); Red Cell Distribution Width 17.1 % (11.5-14.5)
[2024-10-18 05:17] LABS: Alanine Aminotransferase 17 U/L (6-50); Albumin Level 3.5 g/dL (3.5-5.1); Alkaline Phosphatase 88 U/L (38-126); Anion Gap 16 mmol/L (4-12); Aspartate Amino Transferase 29 U/L (17-59); Bilirubin,Total 1.8 mg/dL (0.2-1.3); Blood Urea Nitrogen 115 mg/dL (9-20); Calcium 7.8 mg/dL (8.4-10.2); Carbon Dioxide 23 mmol/L (22-30); Chloride 95 mmol/L (98-107); Estimated CRCL calculation 8 ml/min; Estimated Glomerular Filt Rate 8; Glucose 135 mg/dL (65-110); Magnesium 2.4 mg/dL (1.6-2.3); Phosphorus 3.9 mg/dL (2.5-4.5); Potassium 4.9 mmol/L (3.4-5.0); Sodium 134 mmol/L (137-145)
[2024-10-18 05:18] LABS: Partial Thromboplastin Time 100.1 Seconds (22.3-36.8)
[2024-10-18] MEDS: HYDROCORTISONE SODIUM SUCCINATE 100 MG/2 ML VIAL 50 MG IV PUSH ×2 (05:37→17:24)
[2024-10-18] MEDS: CENTRAL LINE FLUSH 20 ML IV PUSH (05:38)
[2024-10-18] MEDS: CENTRAL LINE FLUSH 10 ML IV PUSH ×3 (05:38→20:42)
[2024-10-18] MEDS: BUDESONIDE RESPULE NEB 0.5 MG/2 ML AMP INHALATION ×2 (08:15→20:42)
--- NOTE | 2024-10-18 08:18 | P.PNNP_ITS ---
Progress Note: A&P Assessment and Plan (1) End-stage renal disease (ESRD): Code(s): N18.6 - End stage renal disease Status: Chronic Assessment and Plan: * HD will do another treatment today. Will try to take off as much fluid as possible. * He did not receive dialysis yesterday. * He is doing well today in regards to breathing. He still has some chest congestion though and some edema. * Blood pressure is still soft on 11 of Levo. * Dialysis will be done later this afternoon (2) Septic shock: Code(s): A41.9 - Sepsis, unspecified organism; R65.21 - Severe sepsis with septic shock Status: Acute Assessment and Plan: * recent cultures negative. * Blood pressure in the mid 90s to low 100s and he is still on 11 of norepinephrine. He is also on midodrine to help wean the norepinephrine. He is on hydrocortisone already. (3) Acute respiratory failure: Code(s): J96.00 - Acute respiratory failure, unspecified whether with hypoxia or hypercapnia Status: Acute Assessment and Plan: * multifactorial: * pneumonia * altered mental status * need for airway protection * fluid * Extubated The day before yesterday. * breathing okay right now. * Will try to take off as much fluid on dialysis today (4) Bacteremia: Code(s): R78.81 - Bacteremia Status: Acute Assessment and Plan: * 10/08 blood cultures with Streptococcus mitis * 10/10 repeat set of blood culture with NO growth to date * TTE (10/11 )results noted: * left ventricular systolic function is normal, estimated at > 70% * left ventricular diastolic function is grade II diastolic dysfunction * right ventricular systolic function is reduced. * flattening of the septum in diastole and systole consistent with right ventricular volume and pressure overload * left and right atrial chamber dimension is severely enlarged * mild mitral valve regurgitation * moderate to severe tricuspid valve regurgitation. * pulmonary hypertension, estimated pulmonary arterial systolic pressureis 66 mmHg * cannot rule out vegetations on this study * ROBERT (10/13): * no vegetations noted on the mitral valve -- trace mitral valve regurgitation * no vegetations noted on tricuspid valve -- moderate tricuspid valve regurgitation * no vegetations on the aortic valve -- aortic valve is trileaflet * pulmonary valve appears grossly normal without vegetations * interatrial septum is anatomically normal without evidence of shunt with color-flow Doppler * mild atherosclerotic disease in the aorta. * on ceftriaxone * see #2 (5) Pneumonia: Code(s): J18.9 - Pneumonia, unspecified organism Status: Acute Assessment and Plan: * suggested by recent imaging (CXR + CT scan) * on ceftriaxone (6) Influenza A: Code(s): J10.1 - Influenza due to other identified influenza virus with other respiratory manifestations Status: Acute Assessment and Plan: * as noted by testing in ER * completed course of Tamiflu (7) Altered mental status: Code(s): R41.82 - Altered mental status, unspecified Status: Acute Assessment and Plan: * noted in ER prior to intubation * presumably due to acute illness (infection/sepsis/shock...etc) * negative head CT * just weak right now (8) Anemia: Qualifiers: Anemia type: unspecified type Qualified Code(s): D64.9 - Anemia, unspecified Code(s): D64.9 - Anemia, unspecified Status: Chronic Assessment and Plan: * due to ESRD * hold Retacrit since Hgb > 11 * Hb above 13 today (9) Diabetes: Qualifiers: Diabetes mellitus type: type 2 Diabetes mellitus senior care insulin use: without senior care use Diabetes mellitus complication status: with kidney complications Diabetes mellitus complication detail: with chronic kidney disease Chronic kidney disease stage: on chronic dialysis Qualified Code(s): E11.22 - Type 2 diabetes mellitus with diabetic chronic kidney disease; N18.6 - End stage renal disease; Z99.2 - Dependence on renal dialysis Code(s): E11.9 - Type 2 diabetes mellitus without complications Status: Chronic Assessment and Plan: * follow accu-cheks * 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 He opens his eyes in regards the examiner but does not interact much resting comfortably in bed and breathing okay Exam Narrative: General: pleasant male lying in the hospital bed in no acute distress Heart: IRRR, normal S1 and S2; no rub or gallop Lungs: Breath sounds symmetric and fairly clear Abdomen: soft, nontender, nondistended, positive bowel sounds Extremities:1+ chronic edema Skin: no rash or subcu nodules Objective Data Vital Signs Vital Signs: Vital Signs - 24 hr 10/17/24 08:33 10/17/24 09:43 10/17/24 09:44 Temperature Pulse Rate 74 77 77 Respiratory Rate 18 Blood Pressure 95/56 L 95/56 L Pulse Oximetry Oxygen Delivery Oxygen Flow Rate 10/17/24 10:00 10/17/24 10:00 10/17/24 10:00 Temperature 98.0 F Pulse Rate 75 76 76 Respiratory Rate 21 H Blood Pressure 115/58 L 97/55 L Pulse Oximetry 98 Oxygen Delivery Oxygen Flow Rate 10/17/24 12:00 10/17/24 12:00 10/17/24 12:00 Temperature 98.0 F Pulse Rate 73 78 Respiratory Rate 24 H Blood Pressure 116/60 Pulse Oximetry 97 99 Oxygen Delivery Nasal Cannula Oxygen Flow Rate 2 10/17/24 12:00 10/17/24 14:00 10/17/24 14:00 Temperature Pulse Rate 73 74 105 H Respiratory Rate Blood Pressure 96/59 L 91/50 L Pulse Oximetry Oxygen Delivery Oxygen Flow Rate 10/17/24 14:00 10/17/24 14:10 10/17/24 14:10 Temperature Pulse Rate 97 82 Respiratory Rate 21 H 19 Blood Pressure 91/50 L Pulse Oximetry 97 98 Oxygen Delivery Nasal Cannula Oxygen Flow Rate 2 10/17/24 14:23 10/17/24 15:03 10/17/24 16:00 Temperature Pulse Rate 77 81 Respiratory Rate 20 Blood Pressure 97/58 L Pulse Oximetry 96 Oxygen Delivery Nasal Cannula Oxygen Flow Rate 1 10/17/24 16:00 10/17/24 16:00 10/17/24 16:00 Temperature Pulse Rate 80 81 Respiratory Rate 19 Blood Pressure 97/58 L Pulse Oximetry 96 96 Oxygen Delivery Nasal Cannula Oxygen Flow Rate 1 10/17/24 18:00 10/17/24 18:00 10/17/24 18:00 Temperature Pulse Rate 83 83 83 Respiratory Rate 25 H Blood Pressure 104/59 L 104/59 L Pulse Oximetry 96 Oxygen Delivery Oxygen Flow Rate 10/17/24 19:45 10/17/24 20:00 10/17/24 20:00 Temperature 99.9 F H Pulse Rate 81 84 83 Respiratory Rate 21 H Blood Pressure 110/64 110/63 Pulse Oximetry 97 98 Oxygen Delivery Oxygen Flow Rate 10/17/24 20:00 10/17/24 20:00 10/17/24 20:00 Temperature Pulse Rate 83 78 81 Respiratory Rate 21 H 22 H Blood Pressure 119/76 Pulse Oximetry 98 98 Oxygen Delivery Nasal Cannula Oxygen Flow Rate 2 10/17/24 20:01 10/17/24 20:15 10/17/24 20:30 Temperature Pulse Rate 85 88 81 Respiratory Rate 17 18 20 Blood Pressure Pulse Oximetry 98 98 98 Oxygen Delivery Oxygen Flow Rate 10/17/24 20:39 10/17/24 20:41 10/17/24 20:43 Temperature Pulse Rate 81 77 Respiratory Rate 19 Blood Pressure 106/53 L Pulse Oximetry 97 Oxygen Delivery Nasal Cannula Oxygen Flow Rate 1 10/17/24 20:45 10/17/24 20:49 10/17/24 21:00 Temperature Pulse Rate 84 75 74 Respiratory Rate 22 H 19 24 H Blood Pressure Pulse Oximetry 100 98 Oxygen Delivery Oxygen Flow Rate 10/17/24 21:15 10/17/24 21:30 10/17/24 21:45 Temperature Pulse Rate 80 86 80 Respiratory Rate 21 H 22 H Blood Pressure 91/50 L Pulse Oximetry 95 95 Oxygen Delivery Oxygen Flow Rate 10/17/24 21:45 10/17/24 22:00 10/17/24 22:00 Temperature Pulse Rate 85 82 82 Respiratory Rate 25 H 23 H Blood Pressure 99/52 L 99/52 L Pulse Oximetry 96 96 Oxygen Delivery Oxygen Flow Rate 10/17/24 22:00 10/17/24 22:00 10/17/24 22:01 Temperature Pulse Rate 82 87 85 Respiratory Rate 23 H 24 H Blood Pressure 122/69 Pulse Oximetry 99 98 Oxygen Delivery Oxygen Flow Rate 10/17/24 22:15 10/17/24 22:27 10/17/24 22:30 Temperature Pulse Rate 78 82 85 Respiratory Rate 21 H 21 H Blood Pressure 91/49 L Pulse Oximetry 96 97 Oxygen Delivery Oxygen Flow Rate 10/17/24 22:45 10/17/24 23:00 10/17/24 23:15 Temperature Pulse Rate 88 84 82 Respiratory Rate 24 H 22 H 22 H Blood Pressure Pulse Oximetry 95 96 97 Oxygen Delivery Oxygen Flow Rate 10/17/24 23:30 10/17/24 23:45 10/18/24 00:00 Temperature Pulse Rate 81 83 89 Respiratory Rate 21 H 22 H Blood Pressure 106/61 Pulse Oximetry 93 92 Oxygen Delivery Oxygen Flow Rate 10/18/24 00:00 10/18/24 00:00 10/18/24 00:00 Temperature 99.4 F Pulse Rate 89 85 84 Respiratory Rate 23 H 21 H Blood Pressure 106/61 119/73 Pulse Oximetry 94 93 Oxygen Delivery Oxygen Flow Rate 10/18/24 00:01 10/18/24 00:15 10/18/24 00:20 Temperature Pulse Rate 84 79 Respiratory Rate 22 H 23 H Blood Pressure Pulse Oximetry 93 94 94 Oxygen Delivery Nasal Cannula Oxygen Flow Rate 2 10/18/24 00:25 10/18/24 00:30 10/18/24 00:45 Temperature Pulse Rate 75 90 83 Respiratory Rate 21 H 22 H Blood Pressure 108/61 Pulse Oximetry 97 96 Oxygen Delivery Oxygen Flow Rate 10/18/24 01:00 10/18/24 01:15 10/18/24 01:23 Temperature Pulse Rate 78 82 75 Respiratory Rate 23 H 21 H Blood Pressure 99/55 L Pulse Oximetry 95 95 Oxygen Delivery Oxygen Flow Rate 10/18/24 01:30 10/18/24 01:45 10/18/24 02:00 Temperature Pulse Rate 80 83 73 Respiratory Rate 22 H 21 H Blood Pressure Pulse Oximetry 94 98 Oxygen Delivery Oxygen Flow Rate 10/18/24 02:00 10/18/24 02:00 10/18/24 02:01 Temperature Pulse Rate 73 77 76 Respiratory Rate 23 H 21 H 22 H Blood Pressure 99/56 L 109/63 Pulse Oximetry 97 97 97 Oxygen Delivery Oxygen Flow Rate 10/18/24 02:03 10/18/24 02:08 10/18/24 02:15 Temperature Pulse Rate 73 72 78 Respiratory Rate 18 19 Blood Pressure 99/56 L Pulse Oximetry 100 Oxygen Delivery Oxygen Flow Rate 10/18/24 02:19 10/18/24 02:30 10/18/24 02:45 Temperature Pulse Rate 96 78 76 Respiratory Rate 17 18 23 H Blood Pressure Pulse Oximetry 98 96 Oxygen Delivery Oxygen Flow Rate 10/18/24 03:00 10/18/24 03:15 10/18/24 03:30 Temperature Pulse Rate 75 71 76 Respiratory Rate 14 19 18 Blood Pressure Pulse Oximetry 97 98 97 Oxygen Delivery Oxygen Flow Rate 10/18/24 03:45 10/18/24 04:00 10/18/24 04:00 Temperature 98.4 F Pulse Rate 74 75 75 Respiratory Rate 18 18 Blood Pressure 95/54 L 95/54 L Pulse Oximetry 98 99 Oxygen Delivery Oxygen Flow Rate 10/18/24 04:00 10/18/24 04:00 10/18/24 04:00 Temperature Pulse Rate 75 72 75 Respiratory Rate 18 18 Blood Pressure 100/60 Pulse Oximetry 99 98 Oxygen Delivery Nasal Cannula Oxygen Flow Rate 2 10/18/24 04:01 10/18/24 04:15 10/18/24 04:30 Temperature Pulse Rate 75 73 73 Respiratory Rate 20 21 H 18 Blood Pressure Pulse Oximetry 99 99 97 Oxygen Delivery Oxygen Flow Rate 10/18/24 04:45 10/18/24 05:00 10/18/24 05:15 Temperature Pulse Rate 65 76 72 Respiratory Rate 18 16 16 Blood Pressure Pulse Oximetry 97 100 100 Oxygen Delivery Oxygen Flow Rate 10/18/24 05:30 10/18/24 05:40 10/18/24 05:42 Temperature Pulse Rate 68 69 70 Respiratory Rate 20 Blood Pressure 97/62 L Pulse Oximetry 100 Oxygen Delivery Oxygen Flow Rate 10/18/24 05:42 10/18/24 05:45 10/18/24 06:00 Temperature Pulse Rate 70 71 67 Respiratory Rate 15 18 16 Blood Pressure 91/49 L 103/60 Pulse Oximetry 100 100 100 Oxygen Delivery Oxygen Flow Rate 10/18/24 06:01 10/18/24 06:15 10/18/24 06:30 Temperature Pulse Rate 72 66 75 Respiratory Rate 19 11 L 17 Blood Pressure Pulse Oximetry 100 100 98 Oxygen Delivery Oxygen Flow Rate 10/18/24 06:37 10/18/24 06:58 Temperature Pulse Rate 71 66 Respiratory Rate Blood Pressure 84/47 L 87/47 L Pulse Oximetry Oxygen Delivery Oxygen Flow Rate Intake/Output Intake/Output: Intake & Output 10/15/24 10/16/24 10/17/24 10/18/24 23:59 23:59 23:59 23:59 Intake Total 2405.9 1896.4 599.8 236.5 Output Total 3000 100 0 0 Balance -594.1 1796.4 599.8 236.5 Meds/Results Medications: Active Medications Generic Name Dose Route Start Last Admin Trade Name Freq PRN Reason Stop Dose Admin Acetaminophen 650 mg 10/08/24 20:49 Acetaminophen 650 Mg Suppository RECTAL Q6H PRN Mild Pain (1-3) or Fever Albuterol/Ipratropium 3 ml 10/09/24 14:00 10/18/24 08:15 Ipratropium 0.5 Mg/Albuterol Sulfate 2.5 Mg Ampul.Neb 3 Ml INHALATION 3 ml Q6HRT CESAR Administration Allopurinol 100 mg 10/09/24 08:00 10/17/24 13:01 Allopurinol 100 Mg Tablet PO Not Given DAILY@0800 CESAR Apixaban 2.5 mg 10/09/24 09:00 10/17/24 19:39 Apixaban 2.5 Mg Tablet PO Not Given Q12HR CESAR Atorvastatin Calcium 10 mg 10/09/24 09:00 10/17/24 13:01 Atorvastatin 10 Mg Tablet PO Not Given DAILY CESAR Budesonide 0.5 mg 10/09/24 20:00 10/18/24 08:15 Budesonide Respule Neb 0.5 Mg/2 Ml Amp INHALATION 0.5 mg Q12HRT CESAR Administration Dextrose 12.5 gm 10/08/24 22:06 10/17/24 09:53 Dextrose 50% 25 Gm/50 Ml Syringe IV PUSH 12.5 gm PRN PRN Administration Hypoglycemia Protocol Glucagon 1 mg 10/08/24 22:06 Glucagon For Inj 1 Mg Vial IM PRN PRN Hypoglycemia Protocol Glucose 15 gm 10/08/24 22:06 Glucose Oral Gel 15 Gm Of Glucse In 37.5 Gm Tube PO PRN PRN Hypoglycemia Protocol Heparin Sodium (Porcine) 6,000 units 10/17/24 21:36 Heparin Sodium 5,000 Units/Ml Vial IV PUSH PRN PRN aPTT less than 55 seconds Heparin Sodium (Porcine) 3,000 units 10/17/24 21:36 Heparin Sodium 5,000 Units/Ml Vial IV PUSH PRN PRN aPTT 55 - 70 seconds Hydrocortisone Sodium Succinate 50 mg 10/17/24 18:00 10/18/24 05:37 Hydrocortisone Sodium Succinate 100 Mg/2 Ml Vial IV PUSH 50 mg Q12H CESAR Administration Dextrose 1,000 mls @ 100 mls/hr 10/08/24 22:06 Dextrose 5% 1,000 Ml IVPB PRN PRN Hypoglycemia Protocol Norepinephrine Bitartrate 8 mg in 250 mls @ 20.625 mls/hr 10/13/24 05:05 10/18/24 06:58 Levophed 8 Mg/D5w 250 Ml IV CONT 11 mcg/min .Q12H8M CESAR 20.63 mls/hr Titration Protocol 11 MCG/MIN Albumin Human 50 mls @ 999 mls/hr 10/14/24 06:24 10/15/24 17:30 Albutein IVPB 11/13/24 06:23 Infused Q10M PRN Infusion HYPOTENSION Albumin Human 50 mls @ 999 mls/hr 10/17/24 09:36 Albutein IVPB 10/18/24 09:35 Q10M PRN HYPOTENSION Heparin Sodium/Dextrose 25,000 units in 250 mls @ 13 mls/hr 10/17/24 22:00 10/18/24 05:24 Heparin Sodium/D5w 100 Units/Ml IV CONT 1,300 units/hr .[id number] CESAR 13 mls/hr Titration Protocol 1,300 UNITS/HR Insulin Aspart 4 - 8 units 10/11/24 12:00 10/18/24 04:19 Insulin Aspart (*Bkc) 100 Units/Ml SUB-Q Not Given Q4H CESAR Protocol Insulin Glargine 15 units 10/17/24 21:00 Insulin Glargine (*Bkc) 100 Units/Ml SUB-Q HS CESAR Midodrine 10 mg 10/15/24 13:00 10/17/24 16:41 Midodrine Hcl 10 Mg Tablet PO Not Given TID CESAR Multi-Ingred Cream/Lotion/Oil/Oint 1 applic 10/10/24 09:00 10/17/24 19:39 Mineral Oil/White Petrolatum Ointment EACH EYE Not Given Q12HR CESAR Neomycin/Polymyxin/Bacitracin 1 applic 10/17/24 09:00 10/17/24 08:47 Neomycin/Polymyxin/Bacitracin Ointment 15 Gm Tube TOPICAL 1 applic QAM CESAR Administration Pantoprazole Sodium 40 mg 10/09/24 13:45 10/17/24 08:33 Pantoprazole Sodium Iv 40 Mg Vial IV PUSH 40 mg QAM CESAR Administration Polyethylene Glycol 17 gm 10/15/24 10:25 10/17/24 13:02 Polyethylene Glycol 3350 17 Gm Powd.Pack PO Not Given QAM CESAR Fluticasone/Salmeterol 2 puff 10/09/24 08:00 10/09/24 09:26 Fluticasone/Salmeterol 115-21 Mcg Inhaler 1 Puff INHALATION Not Given Q12HRT CESAR Sevelamer Carbonate 1.6 gm 10/14/24 08:45 10/17/24 16:41 Sevelamer Carbonate 0.8 Gm Oral Powder Packet BY MOUTH Not Given TIDWM CESAR Sodium Chloride 10 ml 10/09/24 14:00 10/18/24 05:38 Central Line Flush IV PUSH 10 ml Q8HR CESAR Administration Sodium Chloride 20 ml 10/09/24 06:24 10/18/24 05:38 Central Line Flush IV PUSH 20 ml PRN PRN Administration after blood draws Radiology Results: ITS Impressions Pelvis X-Ray 10/08/24 22:22 IMPRESSION: As above. Head CT 10/08/24 23:18 IMPRESSION: No acute intracranial findings. Chest CT 10/08/24 23:27 IMPRESSION: 1. Interstitial thickening in the lower lobes which may indicate pneumonitis. Edema is less likely. 2. Cardiomegaly. 3. Cholelithiasis 4. Splenic cysts unchanged. Abdomen X-Ray 10/13/24 15:22 IMPRESSION: Nasogastric tube in good position and ready for immediate use. Chest X-Ray 10/18/24 06:37 Impression: Mild central pulmonary edema with prominent central pulmonary venous congestive change and/or pulmonary hypertension. Minimal right pleural effusion. Stable cardiomegaly. Labs Labs: Laboratory Results - last 24 hr 10/17/24 10/17/24 10/17/24 08:36 11:29 17:45 WBC RBC Hgb Hct MCV MCH MCHC RDW Plt Count MPV Immature Gran % (Auto) Neut % (Auto) Lymph % (Auto) Stanton % (Auto) Eos % (Auto) Baso % (Auto) Lymph # (Auto) Stanton # (Auto) Eos # (Auto) Baso # (Auto) Abs Immat Gran (auto) Absolute Neuts (auto) Absolute Nucleated RBC Band Neutrophils % Nucleated RBC % Atypical Lymphocytes Platelet Estimate Large Platelets Hypochromasia Anisocytosis Ovalocytes Schistocytes PT INR APTT Sodium Potassium Chloride Carbon Dioxide Anion Gap BUN Creatinine Estim Creat Clear Calc Estimated GFR Glucose POC Capillary Glucose 80 129 H 94 Calcium Phosphorus Magnesium Total Bilirubin AST ALT Alkaline Phosphatase Total Protein Albumin 10/17/24 10/17/24 10/18/24 20:09 21:51 00:21 WBC 13.1 H RBC 4.21 L Hgb 13.1 L Hct 39.6 L MCV 94.1 MCH 31.1 MCHC 33.1 RDW 17.2 H Plt Count 153 MPV 10.8 H Immature Gran % (Auto) 0.5 Neut % (Auto) 88.1 H Lymph % (Auto) 3.7 L Stanton % (Auto) 7.5 Eos % (Auto) 0.0 Baso % (Auto) 0.2 Lymph # (Auto) 0.48 L Stanton # (Auto) 1.0 H Eos # (Auto) 0.0 Baso # (Auto) 0.0 Abs Immat Gran (auto) 0.07 H Absolute Neuts (auto) 11.6 H Absolute Nucleated RBC 0.000 Band Neutrophils % Not Reportable Nucleated RBC % 0.0 Atypical Lymphocytes Present Platelet Estimate Slightly decreased Large Platelets Present Hypochromasia 1+ Anisocytosis 1+ Ovalocytes 1+ Schistocytes None seen PT 19.5 H INR 1.6 APTT 27.4 Sodium Potassium Chloride Carbon Dioxide Anion Gap BUN Creatinine Estim Creat Clear Calc Estimated GFR Glucose POC Capillary Glucose 97 133 H Calcium Phosphorus Magnesium Total Bilirubin AST ALT Alkaline Phosphatase Total Protein Albumin 10/18/24 10/18/24 04:16 04:45 WBC 11.0 H RBC 4.26 L Hgb 13.2 L Hct 40.3 L MCV 94.6 MCH 31.0 MCHC 32.8 RDW 17.1 H Plt Count 157 MPV 11.0 H Immature Gran % (Auto) 0.5 Neut % (Auto) 83.8 H Lymph % (Auto) 5.2 L Stanton % (Auto) 10.4 H Eos % (Auto) 0.0 Baso % (Auto) 0.1 L Lymph # (Auto) 0.57 L Stanton # (Auto) 1.1 H Eos # (Auto) 0.0 Baso # (Auto) 0.0 Abs Immat Gran (auto) 0.06 H Absolute Neuts (auto) 9.2 H Absolute Nucleated RBC 0.000 Band Neutrophils % Nucleated RBC % 0.0 Atypical Lymphocytes Platelet Estimate Large Platelets Hypochromasia Anisocytosis Ovalocytes Schistocytes PT INR APTT 100.1 H Sodium 134 L Potassium 4.9 Chloride 95 L Carbon Dioxide 23 Anion Gap 16 H BUN 115 H D Creatinine 6.72 H Estim Creat Clear Calc 8 Estimated GFR 8 L Glucose 135 H POC Capillary Glucose 122 H Calcium 7.8 L Phosphorus 3.9 Magnesium 2.4 H Total Bilirubin 1.8 H AST 29 ALT 17 Alkaline Phosphatase 88 Total Protein 7.0 Albumin 3.5
[2024-10-18] MEDS: NEOMYCIN/POLYMYXIN/BACITRACIN OINTMENT 15 GM TUBE 1 APPLIC TOPICAL (08:56)
[2024-10-18] MEDS: PANTOPRAZOLE SODIUM IV 40 MG VIAL IV PUSH (08:56)
--- NOTE | 2024-10-18 08:56 | WPDINTPN ---
Progress Note: A&P Assessment and Plan (1) Respiratory failure: Code(s): J96.90 - Respiratory failure, unspecified, unspecified whether with hypoxia or hypercapnia Status: Acute Assessment and Plan: Acute respiratory failure likely related to pneumonia, altered mental status, airway protection -10/08: Intubated -10/16: Extubated - continue bronchodilators and Pulmicort -chest x-ray reviewed, will have respiratory therapist encourage incentive spirometry, EzPAP -speech for bedside swallow evaluation, modified barium swallow has been recommended by speech therapy. -PT/OT to continue to follow, up in chair, significant weakness (2) Septic shock: Code(s): A41.9 - Sepsis, unspecified organism; R65.21 - Severe sepsis with septic shock Status: Acute Assessment and Plan: Patient presented with altered mental status, hypotension, lactic acidosis -septic shock likely related to bacteremia, bilateral pneumonia along with influenza -continue ceftriaxone (10/08) -status post azithromycin and vancomycin -10/08: Blood cultures growing strep mitis -10/10 repeat set of blood culture sent and negative till now -TTE and ROBERT are negative for evidence of valve vegetations -patient remains on Levophed but off of epinephrine and vasopressin, maintain SBP >90 mmHg. (patient's blood pressure is normally runs low according to his family) -weaning hydrocortisone -patient on midodrine, currently NPO after extubation, restarted patient able to take p.o. or else will place NG tube 10/18: Still requiring Levophed, afebrile, WBC trending down. Will obtain blood cultures, will not start antibiotics for now (3) Bacteremia: Code(s): R78.81 - Bacteremia Status: Acute Assessment and Plan: 10/08: Blood cultures growing strep mitis group 10/10 repeat set of blood culture sent and negative till now -continue antibiotics as above TTE as below ROBERT negative for evidence of vegetation (4) Influenza A: Code(s): J10.1 - Influenza due to other identified influenza virus with other respiratory manifestations Status: Acute Assessment and Plan: Completed a course of renally dosed Tamiflu (5) Pneumonia: Code(s): J18.9 - Pneumonia, unspecified organism Status: Acute Assessment and Plan: Chest x-ray showed pneumonia, CT chest showed pneumonitis, -continue antibiotics as above (6) Altered mental status: Code(s): R41.82 - Altered mental status, unspecified Status: Acute Assessment and Plan: Currently intubated and sedated Head CT was negative for any acute changes at the time presentation (7) End-stage renal disease on hemodialysis: Code(s): N18.6 - End stage renal disease; Z99.2 - Dependence on renal dialysis Status: Acute Assessment and Plan: End-stage renal disease on dialysis (M, W, F) -dialysis per Nephrology. 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 Diabetes mellitus complication status: with kidney complications Diabetes mellitus complication detail: with chronic kidney disease Chronic kidney disease stage: on chronic dialysis Qualified Code(s): E11.22 - Type 2 diabetes mellitus with diabetic chronic kidney disease; N18.6 - End stage renal disease; Z99.2 - Dependence on renal dialysis Code(s): E11.9 - Type 2 diabetes mellitus without complications Status: Chronic Assessment and Plan: Continue current sliding scale and -Lantus discontinued as patient NPO Plan DVT prophylaxis: SCDs, patient was on Eliquis, now that he is extubated and taking anything p.o., started on heparin infusion on 10/17 Stress ulcer prophylaxis: Protonix Nutrition: Modified barium swallow has been ordered as he failed bedside swallow evaluation Code Status: Full code Critical Care Time Spent: 32 minutes Discussed with patient's son and spouse and updated them with patient's condition and plan of care. I answered all the questions Due to a high probability of clinically significant, life threatening deterioration, the patient required my highest level of preparedness to intervene emergently and I personally spent this critical care time directly and personally managing the patient. This critical care time included obtaining a history; examining the patient; pulse oximetry; ordering and review of studies; arranging urgent treatment with development of a management plan; evaluation of patient's response to treatment; frequent reassessment; and discussions with other providers. It was exclusive of separately billable procedures and treating other patients and teaching time. Please see Assessment and Plan section and the rest of the note for further information on patient assessment and treatment This dictation may have been done utilizing a voice recognition system. Attempts have been made to correct errors. However, there may be uncorrected grammatical, spelling, and recognitions errors present. Subjective Date/time seen: 10/18/24 08:56 Interval history: Reason for consult: Altered mental status, generalized weakness, hypotension, shock, acute respiratory failure, Gram-positive cocci in chains bacteremia, influenza A positive, MRSA screen positive 10/08: Intubated 10/16: Extubated 10/18/2024: Patient seen and examined the ICU, remains extubated, on 1 L nasal cannula with good O2 sats. Patient is awake, alert, use be one-word answers. Denies any trouble breathing, states he hurts all over. Very weak, tries to follow commands and upper extremities but not in the lower extremities. Remains on Levophed, no urine output as patient has ESRD on hemodialysis. Patient was started on heparin infusion yesterday as he has history of AFib and was on Eliquis Review of Systems Review of Systems: All systems reviewed & are unremarkable except as noted in HPI and below Exam Narrative: General: Patient on nasal cannula, awake, in no acute distress HEENT:? Pupils equal and reactive bilaterally Neck:? Supple Respiratory:? Coarse breath sounds bilaterally, decreased at bases, no wheezing, adequate air entry Cardiac:? Irregularly irregular, rate controlled Abdomen:? Soft, nontender, nondistended, protuberant, hypoactive bowel sounds Extremities:? Bilateral lower extremity edema pitting in nature, palpable pedal pulses Neuro:? Patient is awake, alert, nods to questions, answers yes or no to questions. Follows simple commands and upper extremities but not in lower extremities Skin:? No skin lesions noted Psych:? Unable to assess at this time Objective Data Vital Signs Vital Signs: Vital Signs - 24 hr 10/17/24 09:43 10/17/24 09:44 10/17/24 10:00 Temperature 98.0 F Pulse Rate 77 77 75 Respiratory Rate 21 H Blood Pressure 95/56 L 95/56 L 115/58 L Pulse Oximetry 98 Oxygen Delivery Oxygen Flow Rate 10/17/24 10:00 10/17/24 10:00 10/17/24 12:00 Temperature Pulse Rate 76 76 Respiratory Rate Blood Pressure 97/55 L Pulse Oximetry 97 Oxygen Delivery Nasal Cannula Oxygen Flow Rate 2 10/17/24 12:00 10/17/24 12:00 10/17/24 12:00 Temperature 98.0 F Pulse Rate 73 78 73 Respiratory Rate 24 H Blood Pressure 116/60 96/59 L Pulse Oximetry 99 Oxygen Delivery Oxygen Flow Rate 10/17/24 14:00 10/17/24 14:00 10/17/24 14:00 Temperature Pulse Rate 74 105 H 97 Respiratory Rate 21 H Blood Pressure 91/50 L 91/50 L Pulse Oximetry 97 Oxygen Delivery Oxygen Flow Rate 10/17/24 14:10 10/17/24 14:10 10/17/24 14:23 Temperature Pulse Rate 82 77 Respiratory Rate 19 20 Blood Pressure Pulse Oximetry 98 Oxygen Delivery Nasal Cannula Oxygen Flow Rate 2 10/17/24 15:03 10/17/24 16:00 10/17/24 16:00 Temperature Pulse Rate 81 Respiratory Rate Blood Pressure 97/58 L Pulse Oximetry 96 96 Oxygen Delivery Nasal Cannula Nasal Cannula Oxygen Flow Rate 1 1 10/17/24 16:00 10/17/24 16:00 10/17/24 18:00 Temperature Pulse Rate 80 81 83 Respiratory Rate 19 Blood Pressure 97/58 L 104/59 L Pulse Oximetry 96 Oxygen Delivery Oxygen Flow Rate 10/17/24 18:00 10/17/24 18:00 10/17/24 19:45 Temperature Pulse Rate 83 83 81 Respiratory Rate 25 H Blood Pressure 104/59 L Pulse Oximetry 96 97 Oxygen Delivery Oxygen Flow Rate 10/17/24 20:00 10/17/24 20:00 10/17/24 20:00 Temperature 99.9 F H Pulse Rate 84 83 83 Respiratory Rate 21 H 21 H Blood Pressure 110/64 110/63 Pulse Oximetry 98 98 Oxygen Delivery Nasal Cannula Oxygen Flow Rate 2 10/17/24 20:00 10/17/24 20:00 10/17/24 20:01 Temperature Pulse Rate 78 81 85 Respiratory Rate 22 H 17 Blood Pressure 119/76 Pulse Oximetry 98 98 Oxygen Delivery Oxygen Flow Rate 10/17/24 20:15 10/17/24 20:30 10/17/24 20:39 Temperature Pulse Rate 88 81 81 Respiratory Rate 18 20 19 Blood Pressure Pulse Oximetry 98 98 Oxygen Delivery Oxygen Flow Rate 10/17/24 20:41 10/17/24 20:43 10/17/24 20:45 Temperature Pulse Rate 77 84 Respiratory Rate 22 H Blood Pressure 106/53 L Pulse Oximetry 97 100 Oxygen Delivery Nasal Cannula Oxygen Flow Rate 1 10/17/24 20:49 10/17/24 21:00 10/17/24 21:15 Temperature Pulse Rate 75 74 80 Respiratory Rate 19 24 H 21 H Blood Pressure Pulse Oximetry 98 95 Oxygen Delivery Oxygen Flow Rate 10/17/24 21:30 10/17/24 21:45 10/17/24 21:45 Temperature Pulse Rate 86 80 85 Respiratory Rate 22 H 25 H Blood Pressure 91/50 L Pulse Oximetry 95 96 Oxygen Delivery Oxygen Flow Rate 10/17/24 22:00 10/17/24 22:00 10/17/24 22:00 Temperature Pulse Rate 82 82 82 Respiratory Rate 23 H Blood Pressure 99/52 L 99/52 L Pulse Oximetry 96 Oxygen Delivery Oxygen Flow Rate 10/17/24 22:00 10/17/24 22:01 10/17/24 22:15 Temperature Pulse Rate 87 85 78 Respiratory Rate 23 H 24 H 21 H Blood Pressure 122/69 Pulse Oximetry 99 98 96 Oxygen Delivery Oxygen Flow Rate 10/17/24 22:27 10/17/24 22:30 10/17/24 22:45 Temperature Pulse Rate 82 85 88 Respiratory Rate 21 H 24 H Blood Pressure 91/49 L Pulse Oximetry 97 95 Oxygen Delivery Oxygen Flow Rate 10/17/24 23:00 10/17/24 23:15 10/17/24 23:30 Temperature Pulse Rate 84 82 81 Respiratory Rate 22 H 22 H 21 H Blood Pressure Pulse Oximetry 96 97 93 Oxygen Delivery Oxygen Flow Rate 10/17/24 23:45 10/18/24 00:00 10/18/24 00:00 Temperature 99.4 F Pulse Rate 83 89 89 Respiratory Rate 22 H 23 H Blood Pressure 106/61 106/61 Pulse Oximetry 92 94 Oxygen Delivery Oxygen Flow Rate 10/18/24 00:00 10/18/24 00:00 10/18/24 00:01 Temperature Pulse Rate 85 84 84 Respiratory Rate 21 H 22 H Blood Pressure 119/73 Pulse Oximetry 93 93 Oxygen Delivery Oxygen Flow Rate 10/18/24 00:15 10/18/24 00:20 10/18/24 00:25 Temperature Pulse Rate 79 75 Respiratory Rate 23 H Blood Pressure 108/61 Pulse Oximetry 94 94 Oxygen Delivery Nasal Cannula Oxygen Flow Rate 2 10/18/24 00:30 10/18/24 00:45 10/18/24 01:00 Temperature Pulse Rate 90 83 78 Respiratory Rate 21 H 22 H 23 H Blood Pressure Pulse Oximetry 97 96 95 Oxygen Delivery Oxygen Flow Rate 10/18/24 01:15 10/18/24 01:23 10/18/24 01:30 Temperature Pulse Rate 82 75 80 Respiratory Rate 21 H 22 H Blood Pressure 99/55 L Pulse Oximetry 95 94 Oxygen Delivery Oxygen Flow Rate 10/18/24 01:45 10/18/24 02:00 10/18/24 02:00 Temperature Pulse Rate 83 73 73 Respiratory Rate 21 H 23 H Blood Pressure 99/56 L Pulse Oximetry 98 97 Oxygen Delivery Oxygen Flow Rate 10/18/24 02:00 10/18/24 02:01 10/18/24 02:03 Temperature Pulse Rate 77 76 73 Respiratory Rate 21 H 22 H Blood Pressure 109/63 99/56 L Pulse Oximetry 97 97 Oxygen Delivery Oxygen Flow Rate 10/18/24 02:08 10/18/24 02:15 10/18/24 02:19 Temperature Pulse Rate 72 78 96 Respiratory Rate 18 19 17 Blood Pressure Pulse Oximetry 100 Oxygen Delivery Oxygen Flow Rate 10/18/24 02:30 10/18/24 02:45 10/18/24 03:00 Temperature Pulse Rate 78 76 75 Respiratory Rate 18 23 H 14 Blood Pressure Pulse Oximetry 98 96 97 Oxygen Delivery Oxygen Flow Rate 10/18/24 03:15 10/18/24 03:30 10/18/24 03:45 Temperature Pulse Rate 71 76 74 Respiratory Rate 19 18 18 Blood Pressure Pulse Oximetry 98 97 98 Oxygen Delivery Oxygen Flow Rate 10/18/24 04:00 10/18/24 04:00 10/18/24 04:00 Temperature 98.4 F Pulse Rate 75 75 75 Respiratory Rate 18 18 Blood Pressure 95/54 L 95/54 L Pulse Oximetry 99 99 Oxygen Delivery Nasal Cannula Oxygen Flow Rate 2 10/18/24 04:00 10/18/24 04:00 10/18/24 04:01 Temperature Pulse Rate 72 75 75 Respiratory Rate 18 20 Blood Pressure 100/60 Pulse Oximetry 98 99 Oxygen Delivery Oxygen Flow Rate 10/18/24 04:15 10/18/24 04:30 10/18/24 04:45 Temperature Pulse Rate 73 73 65 Respiratory Rate 21 H 18 18 Blood Pressure Pulse Oximetry 99 97 97 Oxygen Delivery Oxygen Flow Rate 10/18/24 05:00 10/18/24 05:15 10/18/24 05:30 Temperature Pulse Rate 76 72 68 Respiratory Rate 16 16 20 Blood Pressure Pulse Oximetry 100 100 100 Oxygen Delivery Oxygen Flow Rate 10/18/24 05:40 10/18/24 05:42 10/18/24 05:42 Temperature Pulse Rate 69 70 70 Respiratory Rate 15 Blood Pressure 97/62 L 91/49 L Pulse Oximetry 100 Oxygen Delivery Oxygen Flow Rate 10/18/24 05:45 10/18/24 06:00 10/18/24 06:01 Temperature Pulse Rate 71 67 72 Respiratory Rate 18 16 19 Blood Pressure 103/60 Pulse Oximetry 100 100 100 Oxygen Delivery Oxygen Flow Rate 10/18/24 06:15 10/18/24 06:30 10/18/24 06:37 Temperature Pulse Rate 66 75 71 Respiratory Rate 11 L 17 Blood Pressure 84/47 L Pulse Oximetry 100 98 Oxygen Delivery Oxygen Flow Rate 10/18/24 06:58 10/18/24 08:00 10/18/24 08:16 Temperature Pulse Rate 66 70 67 Respiratory Rate 18 Blood Pressure 87/47 L 106/55 L Pulse Oximetry Oxygen Delivery Oxygen Flow Rate 10/18/24 08:23 Temperature Pulse Rate Respiratory Rate Blood Pressure Pulse Oximetry 97 Oxygen Delivery Nasal Cannula Oxygen Flow Rate 1 Intake/Output Intake/Output: Intake & Output 10/15/24 10/16/24 10/17/24 10/18/24 23:59 23:59 23:59 23:59 Intake Total 2405.9 1896.4 599.8 257.8 Output Total 3000 100 0 0 Balance -594.1 1796.4 599.8 257.8 Meds/Results Medications: Active Medications Generic Name Dose Route Start Last Admin Trade Name Freq PRN Reason Stop Dose Admin Acetaminophen 650 mg 10/08/24 20:49 Acetaminophen 650 Mg Suppository RECTAL Q6H PRN Mild Pain (1-3) or Fever Albuterol/Ipratropium 3 ml 10/09/24 14:00 10/18/24 08:15 Ipratropium 0.5 Mg/Albuterol Sulfate 2.5 Mg Ampul.Neb 3 Ml INHALATION 3 ml Q6HRT [facility] Administration Allopurinol 100 mg 10/09/24 08:00 10/18/24 08:54 Allopurinol 100 Mg Tablet PO Not Given DAILY@0800 [facility] Apixaban 2.5 mg 10/09/24 09:00 10/18/24 08:54 Apixaban 2.5 Mg Tablet PO Not Given Q12HR [facility] Atorvastatin Calcium 10 mg 10/09/24 09:00 10/18/24 08:54 Atorvastatin 10 Mg Tablet PO Not Given DAILY [facility] Budesonide 0.5 mg 10/09/24 20:00 10/18/24 08:15 Budesonide Respule Neb 0.5 Mg/2 Ml Amp INHALATION 0.5 mg Q12HRT [facility] Administration Dextrose 12.5 gm 10/08/24 22:06 10/17/24 09:53 Dextrose 50% 25 Gm/50 Ml Syringe IV PUSH 12.5 gm PRN PRN Administration Hypoglycemia Protocol Glucagon 1 mg 10/08/24 22:06 Glucagon For Inj 1 Mg Vial IM PRN PRN Hypoglycemia Protocol Glucose 15 gm 10/08/24 22:06 Glucose Oral Gel 15 Gm Of Glucse In 37.5 Gm Tube PO PRN PRN Hypoglycemia Protocol Heparin Sodium (Porcine) 6,000 units 10/17/24 21:36 Heparin Sodium 5,000 Units/Ml Vial IV PUSH PRN PRN aPTT less than 55 seconds Heparin Sodium (Porcine) 3,000 units 10/17/24 21:36 Heparin Sodium 5,000 Units/Ml Vial IV PUSH PRN PRN aPTT 55 - 70 seconds Hydrocortisone Sodium Succinate 50 mg 10/17/24 18:00 10/18/24 05:37 Hydrocortisone Sodium Succinate 100 Mg/2 Ml Vial IV PUSH 50 mg Q12H [facility] Administration Dextrose 1,000 mls @ 100 mls/hr 10/08/24 22:06 Dextrose 5% 1,000 Ml IVPB PRN PRN Hypoglycemia Protocol Norepinephrine Bitartrate 8 mg in 250 mls @ 20.625 mls/hr 10/13/24 05:05 10/18/24 08:00 Levophed 8 Mg/D5w 250 Ml IV CONT 11 mcg/min .Q12H8M [facility] 20.63 mls/hr Titration Protocol 11 MCG/MIN Albumin Human 50 mls @ 999 mls/hr 10/14/24 06:24 10/15/24 17:30 Albutein IVPB 11/13/24 06:23 Infused Q10M PRN Infusion HYPOTENSION Albumin Human 50 mls @ 999 mls/hr 10/17/24 09:36 Albutein IVPB 10/18/24 09:35 Q10M PRN HYPOTENSION Heparin Sodium/Dextrose 25,000 units in 250 mls @ 13 mls/hr 10/17/24 22:00 10/18/24 05:24 Heparin Sodium/D5w 100 Units/Ml IV CONT 1,300 units/hr .[id number] [facility] 13 mls/hr Titration Protocol 1,300 UNITS/HR Insulin Aspart 4 - 8 units 10/11/24 12:00 10/18/24 04:19 Insulin Aspart (*Bkc) 100 Units/Ml SUB-Q Not Given Q4H [facility] Protocol Insulin Glargine 15 units 10/17/24 21:00 Insulin Glargine (*Bkc) 100 Units/Ml SUB-Q HS [facility] Midodrine 10 mg 10/15/24 13:00 10/18/24 08:55 Midodrine Hcl 10 Mg Tablet PO Not Given TID [facility] Multi-Ingred Cream/Lotion/Oil/Oint 1 applic 10/10/24 09:00 10/18/24 08:55 Mineral Oil/White Petrolatum Ointment EACH EYE Not Given Q12HR [facility] Neomycin/Polymyxin/Bacitracin 1 applic 10/17/24 09:00 10/17/24 08:47 Neomycin/Polymyxin/Bacitracin Ointment 15 Gm Tube TOPICAL 1 applic QAM [facility] Administration Pantoprazole Sodium 40 mg 10/09/24 13:45 10/17/24 08:33 Pantoprazole Sodium Iv 40 Mg Vial IV PUSH 40 mg QAM [facility] Administration Polyethylene Glycol 17 gm 10/15/24 10:25 10/18/24 08:55 Polyethylene Glycol 3350 17 Gm Powd.Pack PO Not Given QAM [facility] Fluticasone/Salmeterol 2 puff 10/09/24 08:00 10/09/24 09:26 Fluticasone/Salmeterol 115-21 Mcg Inhaler 1 Puff INHALATION Not Given Q12HRT [facility] Sevelamer Carbonate 1.6 gm 10/14/24 08:45 10/18/24 08:54 Sevelamer Carbonate 0.8 Gm Oral Powder Packet BY MOUTH Not Given TIDWM [facility] Sodium Chloride 10 ml 10/09/24 14:00 10/18/24 05:38 Central Line Flush IV PUSH 10 ml Q8HR [facility] Administration Sodium Chloride 20 ml 10/09/24 06:24 10/18/24 05:38 Central Line Flush IV PUSH 20 ml PRN PRN Administration after blood draws Radiology Results: ITS Impressions Pelvis X-Ray 10/08/24 22:22 IMPRESSION: As above. Head CT 10/08/24 23:18 IMPRESSION: No acute intracranial findings. Chest CT 10/08/24 23:27 IMPRESSION: 1. Interstitial thickening in the lower lobes which may indicate pneumonitis. Edema is less likely. 2. Cardiomegaly. 3. Cholelithiasis 4. Splenic cysts unchanged. Abdomen X-Ray 10/13/24 15:22 IMPRESSION: Nasogastric tube in good position and ready for immediate use. Chest X-Ray 10/18/24 06:37 Impression: Mild central pulmonary edema with prominent central pulmonary venous congestive change and/or pulmonary hypertension. Minimal right pleural effusion. Stable cardiomegaly. Labs Labs: Laboratory Results - last 24 hr 10/17/24 10/17/24 10/17/24 08:36 11:29 17:45 WBC RBC Hgb Hct MCV MCH MCHC RDW Plt Count MPV Immature Gran % (Auto) Neut % (Auto) Lymph % (Auto) Pierce % (Auto) Eos % (Auto) Baso % (Auto) Lymph # (Auto) Pierce # (Auto) Eos # (Auto) Baso # (Auto) Abs Immat Gran (auto) Absolute Neuts (auto) Absolute Nucleated RBC Band Neutrophils % Nucleated RBC % Atypical Lymphocytes Platelet Estimate Large Platelets Hypochromasia Anisocytosis Ovalocytes Schistocytes PT INR APTT Sodium Potassium Chloride Carbon Dioxide Anion Gap BUN Creatinine Estim Creat Clear Calc Estimated GFR Glucose POC Capillary Glucose 80 129 H 94 Calcium Phosphorus Magnesium Total Bilirubin AST ALT Alkaline Phosphatase Total Protein Albumin 10/17/24 10/17/24 10/18/24 20:09 21:51 00:21 WBC 13.1 H RBC 4.21 L Hgb 13.1 L Hct 39.6 L MCV 94.1 MCH 31.1 MCHC 33.1 RDW 17.2 H Plt Count 153 MPV 10.8 H Immature Gran % (Auto) 0.5 Neut % (Auto) 88.1 H Lymph % (Auto) 3.7 L Pierce % (Auto) 7.5 Eos % (Auto) 0.0 Baso % (Auto) 0.2 Lymph # (Auto) 0.48 L Pierce # (Auto) 1.0 H Eos # (Auto) 0.0 Baso # (Auto) 0.0 Abs Immat Gran (auto) 0.07 H Absolute Neuts (auto) 11.6 H Absolute Nucleated RBC 0.000 Band Neutrophils % Not Reportable Nucleated RBC % 0.0 Atypical Lymphocytes Present Platelet Estimate Slightly decreased Large Platelets Present Hypochromasia 1+ Anisocytosis 1+ Ovalocytes 1+ Schistocytes None seen PT 19.5 H INR 1.6 APTT 27.4 Sodium Potassium Chloride Carbon Dioxide Anion Gap BUN Creatinine Estim Creat Clear Calc Estimated GFR Glucose POC Capillary Glucose 97 133 H Calcium Phosphorus Magnesium Total Bilirubin AST ALT Alkaline Phosphatase Total Protein Albumin 10/18/24 10/18/24 04:16 04:45 WBC 11.0 H RBC 4.26 L Hgb 13.2 L Hct 40.3 L MCV 94.6 MCH 31.0 MCHC 32.8 RDW 17.1 H Plt Count 157 MPV 11.0 H Immature Gran % (Auto) 0.5 Neut % (Auto) 83.8 H Lymph % (Auto) 5.2 L Pierce % (Auto) 10.4 H Eos % (Auto) 0.0 Baso % (Auto) 0.1 L Lymph # (Auto) 0.57 L Pierce # (Auto) 1.1 H Eos # (Auto) 0.0 Baso # (Auto) 0.0 Abs Immat Gran (auto) 0.06 H Absolute Neuts (auto) 9.2 H Absolute Nucleated RBC 0.000 Band Neutrophils % Nucleated RBC % 0.0 Atypical Lymphocytes Platelet Estimate Large Platelets Hypochromasia Anisocytosis Ovalocytes Schistocytes PT INR APTT 100.1 H Sodium 134 L Potassium 4.9 Chloride 95 L Carbon Dioxide 23 Anion Gap 16 H BUN 115 H D Creatinine 6.72 H Estim Creat Clear Calc 8 Estimated GFR 8 L Glucose 135 H POC Capillary Glucose 122 H Calcium 7.8 L Phosphorus 3.9 Magnesium 2.4 H Total Bilirubin 1.8 H AST 29 ALT 17 Alkaline Phosphatase 88 Total Protein 7.0 Albumin 3.5 Quality VTE Prophylaxis VTE prophylaxis: mechanical ordered
[2024-10-18 09:27] LABS: Glucose Point of Care 123 mg/dl (65-105)
[2024-10-18] MEDS: NOREPINEPHRINE 8 MG/D5W 250 ML 8 MG/250 ML BAG 28.13 MG IV CONT (10:53)
[2024-10-18 11:20] LABS: Partial Thromboplastin Time 60.8 Seconds (22.3-36.8)
[2024-10-18] MEDS: HEPARIN SODIUM 5,000 UNITS/ML VIAL 3000 UNITS IV PUSH (11:35)
[2024-10-18 12:32] LABS: Glucose Point of Care 101 mg/dl (65-105)
--- NOTE | 2024-10-18 15:06 | PCOTNOTE ---
Attempted to see pt. for occupational therapy evaluation. Pt. currently has femoral line and is fatigued from busy day of testing. Will see pt. when more alert and appropriate. Nursing aware
--- NOTE | 2024-10-18 16:38 | PCSTNOTE ---
Please refer to the Modified Barium Swallow Evaluation in the EMR. The above pt was seen for a modified barium swallow due to overt s/s of aspiration noted during the bedside swallow evaluation. Pt was intubated x 8 days; extubated on 10/16. This very somnolent pt was seated for a lateral view. He was unable to independently maintain a seated position without tech assistance to hold him upright for the testing. Pt was essentially nonverbal but did make an attempt to speak to his granddaughter; his vocal quality was breathy on that attempt. Pt was presented with 5 ml trials of thin liquid and 1/2 to 1 tsp amounts of pudding. For both consistencies, max oral leakage occurred. Pt demonstrated an inability to maintain a labial seal and could not formulate contents into a bolus. A portion of the thin liquids were spilled posteriorly and into the pharynx. Swallow reflex triggered timely but reduced laryngeal elevation was exhibited as evidenced by laryngeal penetration during the swallow and mild pyriform sinus residue. Reduced laryngeal closure was also exhibited as evidenced by aspiration during the swallow. Aspiration was silent as pt made no effort to eject the (trace) aspirated contents. Trace aspiration also occurred after the swallow. Pudding trial could not be assessed pharyngeally as contents were completely spilled from mouth. Impressions: severe oral and pharyngeal stage dysphagia Recommendations: Non oral feedings; ST for dysphagia therapy, repeat MBS as per ST recommendation.
--- NOTE | 2024-10-18 16:40 | P.PNIM_ITS ---
Progress Note: A&P Assessment and Plan (1) Sepsis: Code(s): A41.9 - Sepsis, unspecified organism Status: Acute (2) Influenza: Code(s): J11.1 - Influenza due to unidentified influenza virus with other respiratory manifestations Status: Acute (3) Pneumonia: Code(s): J18.9 - Pneumonia, unspecified organism Status: Acute (4) Altered mental status: Code(s): R41.82 - Altered mental status, unspecified Status: Acute (5) End-stage renal disease on hemodialysis: Code(s): N18.6 - End stage renal disease; Z99.2 - Dependence on renal dialysis Status: Acute (6) Type 2 diabetes mellitus with diabetic neuropathy: Qualifiers: Diabetes mellitus intermediate card tender insulin use: without intermediate card tender use Qualified Code(s): E11.40 - Type 2 diabetes mellitus with diabetic neuropathy, unspecified Code(s): E11.40 - Type 2 diabetes mellitus with diabetic neuropathy, unspecified Status: Chronic Plan The patient presented to the emergency department for evaluation of altered mental status following dialysis as detailed in HPI. Labs, imaging, EKG, and all reports were personally reviewed. He meets sepsis criteria with hypotension, low-grade fever, bandemia, lactic acidosis, and altered mental status in the setting of infection. He remained hypotensive following a 1.5 L normal saline bolus (more fluids were not given due to his end-stage renal disease) and he has been started on vasopressors with a target MAP of at least 65. He tested positive for influenza A and chest x-ray shows findings of possible pneumonia for which he has been started on oseltamivir and azithromycin, ceftriaxone, and vancomycin. MRSA nasal screen pending. Sputum culture ordered. There were no reports of obvious focal deficits on exam in the ED and his altered mental status may very well be related to sepsis, influenza, and hypotension. Brain CT was without acute findings. Initiate sliding scale insulin, Accu-Cheks, and hypoglycemic protocol. He will be due for dialysis on Friday. His medications will be reviewed and resumed as appropriate. Findings and treatment plan were discussed with the patient's . Questions were solicited and answered to satisfaction. The patient's medical management will be taken over by the hospitalist team in a.m. patient presented with hypotension and confusion, patient was intubated and on ventilator, patient is receiving IVF and on pressor, discussed with resident physician in radiology patient blood pressure is improving and his off pressors, patient is found to have Influenza A treated with Tamiflu patient's and son are present in the room, on 10/13 patient had ROBERT there is no evidence endocarditis, patient is clinically improving and discussed with resident physician in radiology plan give weaning trial, on 10/16 patient was extubated and tolerating, failed bedside swallow study today, will have MBS tomorrow, patient still remains on pressors, patient and son are present, patient is seen by resident physician in radiology and further recommendation to follow. patient presented with hypotension and confusion, patient was intubated and on ventilator, patient is receiving IVF and on pressor, discussed with resident physician in radiology patient blood pressure is improving and his off pressors, patient is found to have Influenza A treated with Tamiflu patient's and son are present in the room, on 10/13 patient had ROBERT there is no evidence endocarditis, patient is clinically improving and discussed with resident physician in radiology plan give weaning trial, on 10/16 patient was extubated and tolerating,on 10/17 failed bedside swallow study, patient had MBS today and failed, will insert NG tube and start feeding, patient still remains on pressors, patient is patient is seen by resident physician in radiology and further recommendation to follow. Subjective Date/time seen: 10/18/24 16:40 Interval history: Altered mental status. H&P-Narrative: This is an 84-year-old male with end-stage renal disease on hemodialysis, congestive heart failure, pulmonary hypertension, type 2 diabetes mellitus, atrial fibrillation on anticoagulation, hypertension, chronic anemia, and other comorbidities who presented to the emergency department via EMS for evaluation of altered mental status after dialysis. He was intubated in the emergency department and the following history is obtained from the patient's as well as review of his electronic medical records. He went to dialysis at 05:00 and completed a session. His that time he has reportedly been increasingly confused, mumbling to himself and not making any sense. In the ED his only complaint was that of not feeling well but he did not elaborate. reports that he had a bit of a cough yesterday which she believes was nonproductive. There were no reports of fever, cold and flu symptoms, vomiting, or diarrhea. In the ED: Vital signs on arrival include a temperature of 99.8?, blood pressure 72/37, pulse 87, respiratory 22, SpO2 95%. Labs were significant for WBC count of 7.9 with 10 bands noted on manual differential, sodium 136, chloride 92, carbon dioxide 34, BUN 26, creatinine 3.68, lactic acid 2.9, calcium 7.9, total bilirubin 2.1. He tested positive for influenza A. Chest x-ray showed bilateral social pneumonitis versus pulmonary edema. Blood pressure continue to drift down words and he was given a 1500 mL bolus of normal saline without much improvement. The decision was made to put in the central line and start the patient on vasopressors however the patient had difficulties lying still for central line placement and he was sedated and eventually intubated and he is being admitted to the ICU in this setting with hypotension, influenza, pneumonia, and altered mental status. patient presented with hypotension and confusion, patient was intubated and on ventilator, patient is receiving IVF and on pressor, discussed with resident physician in radiology patient blood pressure is improving and his off pressors, patient is found to have Influenza A treated with Tamiflu patient's and son are present in the room, on 10/13 patient had ROBERT there is no evidence endocarditis, patient is clinically improving and discussed with resident physician in radiology plan give weaning trial, on 10/16 patient was extubated and tolerating,on 10/17 failed bedside swallow study, patient had MBS today and failed, will insert NG tube and start feeding, patient still remains on pressors, patient is patient is seen by resident physician in radiology and further recommendation to follow. Review of Systems Review of Systems: ROS unobtainable: Yes unobtainable due to mental status Exam Narrative: Patient is comfortable, NAD HEENT: clear LUNGS:CTA HEART: RR S1S2 ABD: BS+, Soft and nontender Lower extremities: no edema SKIN: nonjaundiced Neuro: still somewhat sedated Objective Data Vital Signs Vital Signs: Vital Signs - 24 hr 10/17/24 18:00 10/17/24 18:00 10/17/24 18:00 Temperature Pulse Rate 83 83 83 Respiratory Rate 25 H Blood Pressure 104/59 L 104/59 L Pulse Oximetry 96 Oxygen Delivery Oxygen Flow Rate 10/17/24 19:45 10/17/24 20:00 10/17/24 20:00 Temperature 37.7 C H Pulse Rate 81 84 83 Respiratory Rate 21 H Blood Pressure 110/64 110/63 Pulse Oximetry 97 98 Oxygen Delivery Oxygen Flow Rate 10/17/24 20:00 10/17/24 20:00 10/17/24 20:00 Temperature Pulse Rate 83 78 81 Respiratory Rate 21 H 22 H Blood Pressure 119/76 Pulse Oximetry 98 98 Oxygen Delivery Nasal Cannula Oxygen Flow Rate 2 10/17/24 20:01 10/17/24 20:15 10/17/24 20:30 Temperature Pulse Rate 85 88 81 Respiratory Rate 17 18 20 Blood Pressure Pulse Oximetry 98 98 98 Oxygen Delivery Oxygen Flow Rate 10/17/24 20:39 10/17/24 20:41 10/17/24 20:43 Temperature Pulse Rate 81 77 Respiratory Rate 19 Blood Pressure 106/53 L Pulse Oximetry 97 Oxygen Delivery Nasal Cannula Oxygen Flow Rate 1 10/17/24 20:45 10/17/24 20:49 10/17/24 21:00 Temperature Pulse Rate 84 75 74 Respiratory Rate 22 H 19 24 H Blood Pressure Pulse Oximetry 100 98 Oxygen Delivery Oxygen Flow Rate 10/17/24 21:15 10/17/24 21:30 10/17/24 21:45 Temperature Pulse Rate 80 86 80 Respiratory Rate 21 H 22 H Blood Pressure 91/50 L Pulse Oximetry 95 95 Oxygen Delivery Oxygen Flow Rate 10/17/24 21:45 10/17/24 22:00 10/17/24 22:00 Temperature Pulse Rate 85 82 82 Respiratory Rate 25 H 23 H Blood Pressure 99/52 L 99/52 L Pulse Oximetry 96 96 Oxygen Delivery Oxygen Flow Rate 10/17/24 22:00 10/17/24 22:00 10/17/24 22:01 Temperature Pulse Rate 82 87 85 Respiratory Rate 23 H 24 H Blood Pressure 122/69 Pulse Oximetry 99 98 Oxygen Delivery Oxygen Flow Rate 10/17/24 22:15 10/17/24 22:27 10/17/24 22:30 Temperature Pulse Rate 78 82 85 Respiratory Rate 21 H 21 H Blood Pressure 91/49 L Pulse Oximetry 96 97 Oxygen Delivery Oxygen Flow Rate 10/17/24 22:45 10/17/24 23:00 10/17/24 23:15 Temperature Pulse Rate 88 84 82 Respiratory Rate 24 H 22 H 22 H Blood Pressure Pulse Oximetry 95 96 97 Oxygen Delivery Oxygen Flow Rate 10/17/24 23:30 10/17/24 23:45 10/18/24 00:00 Temperature Pulse Rate 81 83 89 Respiratory Rate 21 H 22 H Blood Pressure 106/61 Pulse Oximetry 93 92 Oxygen Delivery Oxygen Flow Rate 10/18/24 00:00 10/18/24 00:00 10/18/24 00:00 Temperature 37.4 C Pulse Rate 89 85 84 Respiratory Rate 23 H 21 H Blood Pressure 106/61 119/73 Pulse Oximetry 94 93 Oxygen Delivery Oxygen Flow Rate 10/18/24 00:01 10/18/24 00:15 10/18/24 00:20 Temperature Pulse Rate 84 79 Respiratory Rate 22 H 23 H Blood Pressure Pulse Oximetry 93 94 94 Oxygen Delivery Nasal Cannula Oxygen Flow Rate 2 10/18/24 00:25 10/18/24 00:30 10/18/24 00:45 Temperature Pulse Rate 75 90 83 Respiratory Rate 21 H 22 H Blood Pressure 108/61 Pulse Oximetry 97 96 Oxygen Delivery Oxygen Flow Rate 10/18/24 01:00 10/18/24 01:15 10/18/24 01:23 Temperature Pulse Rate 78 82 75 Respiratory Rate 23 H 21 H Blood Pressure 99/55 L Pulse Oximetry 95 95 Oxygen Delivery Oxygen Flow Rate 10/18/24 01:30 10/18/24 01:45 10/18/24 02:00 Temperature Pulse Rate 80 83 73 Respiratory Rate 22 H 21 H Blood Pressure Pulse Oximetry 94 98 Oxygen Delivery Oxygen Flow Rate 10/18/24 02:00 10/18/24 02:00 10/18/24 02:01 Temperature Pulse Rate 73 77 76 Respiratory Rate 23 H 21 H 22 H Blood Pressure 99/56 L 109/63 Pulse Oximetry 97 97 97 Oxygen Delivery Oxygen Flow Rate 10/18/24 02:03 10/18/24 02:08 10/18/24 02:15 Temperature Pulse Rate 73 72 78 Respiratory Rate 18 19 Blood Pressure 99/56 L Pulse Oximetry 100 Oxygen Delivery Oxygen Flow Rate 10/18/24 02:19 10/18/24 02:30 10/18/24 02:45 Temperature Pulse Rate 96 78 76 Respiratory Rate 17 18 23 H Blood Pressure Pulse Oximetry 98 96 Oxygen Delivery Oxygen Flow Rate 10/18/24 03:00 10/18/24 03:15 10/18/24 03:30 Temperature Pulse Rate 75 71 76 Respiratory Rate 14 19 18 Blood Pressure Pulse Oximetry 97 98 97 Oxygen Delivery Oxygen Flow Rate 10/18/24 03:45 10/18/24 04:00 10/18/24 04:00 Temperature 36.9 C Pulse Rate 74 75 75 Respiratory Rate 18 18 Blood Pressure 95/54 L 95/54 L Pulse Oximetry 98 99 Oxygen Delivery Oxygen Flow Rate 10/18/24 04:00 10/18/24 04:00 10/18/24 04:00 Temperature Pulse Rate 75 72 75 Respiratory Rate 18 18 Blood Pressure 100/60 Pulse Oximetry 99 98 Oxygen Delivery Nasal Cannula Oxygen Flow Rate 2 10/18/24 04:01 10/18/24 04:15 10/18/24 04:30 Temperature Pulse Rate 75 73 73 Respiratory Rate 20 21 H 18 Blood Pressure Pulse Oximetry 99 99 97 Oxygen Delivery Oxygen Flow Rate 10/18/24 04:45 10/18/24 05:00 10/18/24 05:15 Temperature Pulse Rate 65 76 72 Respiratory Rate 18 16 16 Blood Pressure Pulse Oximetry 97 100 100 Oxygen Delivery Oxygen Flow Rate 10/18/24 05:30 10/18/24 05:40 10/18/24 05:42 Temperature Pulse Rate 68 69 70 Respiratory Rate 20 Blood Pressure 97/62 L Pulse Oximetry 100 Oxygen Delivery Oxygen Flow Rate 10/18/24 05:42 10/18/24 05:45 10/18/24 06:00 Temperature Pulse Rate 70 71 67 Respiratory Rate 15 18 16 Blood Pressure 91/49 L 103/60 Pulse Oximetry 100 100 100 Oxygen Delivery Oxygen Flow Rate 10/18/24 06:01 10/18/24 06:15 10/18/24 06:30 Temperature Pulse Rate 72 66 75 Respiratory Rate 19 11 L 17 Blood Pressure Pulse Oximetry 100 100 98 Oxygen Delivery Oxygen Flow Rate 10/18/24 06:37 10/18/24 06:58 10/18/24 08:00 Temperature Pulse Rate 71 66 70 Respiratory Rate Blood Pressure 84/47 L 87/47 L 106/55 L Pulse Oximetry Oxygen Delivery Oxygen Flow Rate 10/18/24 08:00 10/18/24 08:00 10/18/24 08:16 Temperature 36.7 C Pulse Rate 70 72 67 Respiratory Rate 17 18 Blood Pressure 107/56 L Pulse Oximetry 100 Oxygen Delivery Oxygen Flow Rate 10/18/24 08:23 10/18/24 09:15 10/18/24 09:15 Temperature 36.5 C Pulse Rate 77 Respiratory Rate 16 Blood Pressure 110/66 Pulse Oximetry 97 99 Oxygen Delivery Nasal Cannula Oxygen Flow Rate 1 1 10/18/24 09:40 10/18/24 10:00 10/18/24 10:00 Temperature 36.7 C Pulse Rate 70 77 77 Respiratory Rate 14 Blood Pressure 110/66 92/50 L Pulse Oximetry 99 Oxygen Delivery Oxygen Flow Rate 10/18/24 10:00 10/18/24 10:00 10/18/24 10:06 Temperature Pulse Rate 77 75 81 Respiratory Rate Blood Pressure 96/52 L 95/51 L 89/49 L Pulse Oximetry Oxygen Delivery Oxygen Flow Rate 10/18/24 10:15 10/18/24 10:30 10/18/24 10:37 Temperature Pulse Rate 67 76 85 Respiratory Rate Blood Pressure 93/52 L 89/49 L 87/43 L Pulse Oximetry Oxygen Delivery Oxygen Flow Rate 10/18/24 10:45 10/18/24 10:53 10/18/24 10:53 Temperature Pulse Rate 79 78 78 Respiratory Rate Blood Pressure 91/50 L 94/51 L 94/51 L Pulse Oximetry Oxygen Delivery Oxygen Flow Rate 10/18/24 11:00 10/18/24 11:15 10/18/24 11:30 Temperature Pulse Rate 79 79 80 Respiratory Rate Blood Pressure 95/51 L 93/50 L 96/52 L Pulse Oximetry Oxygen Delivery Oxygen Flow Rate 10/18/24 11:45 10/18/24 11:55 10/18/24 12:00 Temperature 36.9 C Pulse Rate 85 78 80 Respiratory Rate 16 Blood Pressure 91/50 L 96/59 L 92/51 L Pulse Oximetry 99 Oxygen Delivery Oxygen Flow Rate 10/18/24 12:00 10/18/24 12:00 10/18/24 12:15 Temperature Pulse Rate 76 76 83 Respiratory Rate Blood Pressure 98/68 L 93/51 L Pulse Oximetry Oxygen Delivery Oxygen Flow Rate 10/18/24 12:30 10/18/24 12:45 10/18/24 13:00 Temperature Pulse Rate 83 81 80 Respiratory Rate Blood Pressure 95/52 L 93/50 L 95/51 L Pulse Oximetry Oxygen Delivery Oxygen Flow Rate 10/18/24 13:00 10/18/24 13:10 10/18/24 13:10 Temperature Pulse Rate 80 76 82 Respiratory Rate Blood Pressure 109/64 98/51 L 101/53 L Pulse Oximetry Oxygen Delivery Oxygen Flow Rate 10/18/24 13:19 10/18/24 13:29 10/18/24 13:30 Temperature 36.6 C Pulse Rate 76 71 72 Respiratory Rate 18 Blood Pressure 101/51 L 102/52 L 103/62 Pulse Oximetry 100 Oxygen Delivery Oxygen Flow Rate 10/18/24 14:00 10/18/24 14:00 10/18/24 14:00 Temperature 36.8 C Pulse Rate 75 73 74 Respiratory Rate 16 Blood Pressure 102/55 L 100/57 L Pulse Oximetry 99 Oxygen Delivery Oxygen Flow Rate 10/18/24 15:00 10/18/24 15:11 10/18/24 15:36 Temperature Pulse Rate 71 69 73 Respiratory Rate Blood Pressure 102/56 L 101/54 L 103/61 Pulse Oximetry Oxygen Delivery Oxygen Flow Rate Intake/Output Intake/Output: Intake & Output 10/15/24 10/16/24 10/17/24 10/18/24 23:59 23:59 23:59 23:59 Intake Total 2405.9 1896.4 599.8 514.8 Output Total 3000 100 0 2600 Balance -594.1 1796.4 599.8 -2085.2 Meds/Results Medications: Active Medications Generic Name Dose Route Start Last Admin Trade Name Freq PRN Reason Stop Dose Admin Acetaminophen 650 mg 10/08/24 20:49 Acetaminophen 650 Mg Suppository RECTAL Q6H PRN Mild Pain (1-3) or Fever Albuterol/Ipratropium 3 ml 10/09/24 14:00 10/18/24 14:14 Ipratropium 0.5 Mg/Albuterol Sulfate 2.5 Mg Ampul.Neb 3 Ml INHALATION Not Given Q6HRT [facility] Allopurinol 100 mg 10/09/24 08:00 10/18/24 08:54 Allopurinol 100 Mg Tablet PO Not Given DAILY@0800 [facility] Apixaban 2.5 mg 10/09/24 09:00 10/18/24 08:54 Apixaban 2.5 Mg Tablet PO Not Given Q12HR [facility] Atorvastatin Calcium 10 mg 10/09/24 09:00 10/18/24 08:54 Atorvastatin 10 Mg Tablet PO Not Given DAILY [facility] Budesonide 0.5 mg 10/09/24 20:00 10/18/24 08:15 Budesonide Respule Neb 0.5 Mg/2 Ml Amp INHALATION 0.5 mg Q12HRT [facility] Administration Dextrose 12.5 gm 10/08/24 22:06 10/17/24 09:53 Dextrose 50% 25 Gm/50 Ml Syringe IV PUSH 12.5 gm PRN PRN Administration Hypoglycemia Protocol Glucagon 1 mg 10/08/24 22:06 Glucagon For Inj 1 Mg Vial IM PRN PRN Hypoglycemia Protocol Glucose 15 gm 10/08/24 22:06 Glucose Oral Gel 15 Gm Of Glucse In 37.5 Gm Tube PO PRN PRN Hypoglycemia Protocol Heparin Sodium (Porcine) 6,000 units 10/17/24 21:36 Heparin Sodium 5,000 Units/Ml Vial IV PUSH PRN PRN aPTT less than 55 seconds Heparin Sodium (Porcine) 3,000 units 10/17/24 21:36 10/18/24 11:35 Heparin Sodium 5,000 Units/Ml Vial IV PUSH 3,000 units PRN PRN Administration aPTT 55 - 70 seconds Hydrocortisone Sodium Succinate 50 mg 10/17/24 18:00 10/18/24 05:37 Hydrocortisone Sodium Succinate 100 Mg/2 Ml Vial IV PUSH 50 mg Q12H [facility] Administration Dextrose 1,000 mls @ 100 mls/hr 10/08/24 22:06 Dextrose 5% 1,000 Ml IVPB PRN PRN Hypoglycemia Protocol Norepinephrine Bitartrate 8 mg in 250 mls @ 15 mls/hr 10/13/24 05:05 10/18/24 15:36 Levophed 8 Mg/D5w 250 Ml IV CONT 8 mcg/min .[id number] [facility] 15 mls/hr Titration Protocol 8 MCG/MIN Albumin Human 50 mls @ 999 mls/hr 10/14/24 06:24 10/15/24 17:30 Albutein IVPB 11/13/24 06:23 Infused Q10M PRN Infusion HYPOTENSION Heparin Sodium/Dextrose 25,000 units in 250 mls @ 14 mls/hr 10/17/24 22:00 10/18/24 11:35 Heparin Sodium/D5w 100 Units/Ml IV CONT 1,400 units/hr .[id number] [facility] 14 mls/hr Titration Protocol 1,400 UNITS/HR Insulin Aspart 4 - 8 units 10/11/24 12:00 10/18/24 11:44 Insulin Aspart (*Bkc) 100 Units/Ml SUB-Q Not Given Q4H [facility] Protocol Midodrine 10 mg 10/15/24 13:00 10/18/24 11:26 Midodrine Hcl 10 Mg Tablet PO Not Given TID [facility] Multi-Ingred Cream/Lotion/Oil/Oint 1 applic 10/10/24 09:00 10/18/24 08:55 Mineral Oil/White Petrolatum Ointment EACH EYE Not Given Q12HR [facility] Neomycin/Polymyxin/Bacitracin 1 applic 10/17/24 09:00 10/18/24 08:56 Neomycin/Polymyxin/Bacitracin Ointment 15 Gm Tube TOPICAL 1 applic QAM [facility] Administration Pantoprazole Sodium 40 mg 10/09/24 13:45 10/18/24 08:56 Pantoprazole Sodium Iv 40 Mg Vial IV PUSH 40 mg QAM [facility] Administration Polyethylene Glycol 17 gm 10/15/24 10:25 10/18/24 08:55 Polyethylene Glycol 3350 17 Gm Powd.Pack PO Not Given QAM [facility] Fluticasone/Salmeterol 2 puff 10/09/24 08:00 10/09/24 09:26 Fluticasone/Salmeterol 115-21 Mcg Inhaler 1 Puff INHALATION Not Given Q12HRT [facility] Sevelamer Carbonate 1.6 gm 10/14/24 08:45 10/18/24 11:26 Sevelamer Carbonate 0.8 Gm Oral Powder Packet BY MOUTH Not Given TIDWM [facility] Sodium Chloride 10 ml 10/09/24 14:00 10/18/24 05:38 Central Line Flush IV PUSH 10 ml Q8HR [facility] Administration Sodium Chloride 20 ml 10/09/24 06:24 10/18/24 05:38 Central Line Flush IV PUSH 20 ml PRN PRN Administration after blood draws Radiology Results: ITS Impressions Pelvis X-Ray 10/08/24 22:22 IMPRESSION: As above. Head CT 10/08/24 23:18 IMPRESSION: No acute intracranial findings. Chest CT 10/08/24 23:27 IMPRESSION: 1. Interstitial thickening in the lower lobes which may indicate pneumonitis. Edema is less likely. 2. Cardiomegaly. 3. Cholelithiasis 4. Splenic cysts unchanged. Abdomen X-Ray 10/13/24 15:22 IMPRESSION: Nasogastric tube in good position and ready for immediate use. Chest X-Ray 10/18/24 06:37 Impression: Mild central pulmonary edema with prominent central pulmonary venous congestive change and/or pulmonary hypertension. Minimal right pleural effusion. Stable cardiomegaly. Labs Labs: Laboratory Results - last 24 hr 10/17/24 10/17/24 10/17/24 17:45 20:09 21:51 WBC 13.1 H RBC 4.21 L Hgb 13.1 L Hct 39.6 L MCV 94.1 MCH 31.1 MCHC 33.1 RDW 17.2 H Plt Count 153 MPV 10.8 H Immature Gran % (Auto) 0.5 Neut % (Auto) 88.1 H Lymph % (Auto) 3.7 L [place] % (Auto) 7.5 Eos % (Auto) 0.0 Baso % (Auto) 0.2 Lymph # (Auto) 0.48 L [place] # (Auto) 1.0 H Eos # (Auto) 0.0 Baso # (Auto) 0.0 Abs Immat Gran (auto) 0.07 H Absolute Neuts (auto) 11.6 H Absolute Nucleated RBC 0.000 Band Neutrophils % Not Reportable Nucleated RBC % 0.0 Atypical Lymphocytes Present Platelet Estimate Slightly decreased Large Platelets Present Hypochromasia 1+ Anisocytosis 1+ Ovalocytes 1+ Schistocytes None seen PT 19.5 H INR 1.6 APTT 27.4 Sodium Potassium Chloride Carbon Dioxide Anion Gap BUN Creatinine Estim Creat Clear Calc Estimated GFR Glucose POC Capillary Glucose 94 97 Calcium Phosphorus Magnesium Total Bilirubin AST ALT Alkaline Phosphatase Total Protein Albumin 10/18/24 10/18/24 10/18/24 00:21 04:16 04:45 WBC 11.0 H RBC 4.26 L Hgb 13.2 L Hct 40.3 L MCV 94.6 MCH 31.0 MCHC 32.8 RDW 17.1 H Plt Count 157 MPV 11.0 H Immature Gran % (Auto) 0.5 Neut % (Auto) 83.8 H Lymph % (Auto) 5.2 L [place] % (Auto) 10.4 H Eos % (Auto) 0.0 Baso % (Auto) 0.1 L Lymph # (Auto) 0.57 L [place] # (Auto) 1.1 H Eos # (Auto) 0.0 Baso # (Auto) 0.0 Abs Immat Gran (auto) 0.06 H Absolute Neuts (auto) 9.2 H Absolute Nucleated RBC 0.000 Band Neutrophils % Nucleated RBC % 0.0 Atypical Lymphocytes Platelet Estimate Large Platelets Hypochromasia Anisocytosis Ovalocytes Schistocytes PT INR APTT 100.1 H Sodium 134 L Potassium 4.9 Chloride 95 L Carbon Dioxide 23 Anion Gap 16 H BUN 115 H D Creatinine 6.72 H Estim Creat Clear Calc 8 Estimated GFR 8 L Glucose 135 H POC Capillary Glucose 133 H 122 H Calcium 7.8 L Phosphorus 3.9 Magnesium 2.4 H Total Bilirubin 1.8 H AST 29 ALT 17 Alkaline Phosphatase 88 Total Protein 7.0 Albumin 3.5 10/18/24 10/18/24 10/18/24 09:14 10:51 11:34 WBC RBC Hgb Hct MCV MCH MCHC RDW Plt Count MPV Immature Gran % (Auto) Neut % (Auto) Lymph % (Auto) [place] % (Auto) Eos % (Auto) Baso % (Auto) Lymph # (Auto) [place] # (Auto) Eos # (Auto) Baso # (Auto) Abs Immat Gran (auto) Absolute Neuts (auto) Absolute Nucleated RBC Band Neutrophils % Nucleated RBC % Atypical Lymphocytes Platelet Estimate Large Platelets Hypochromasia Anisocytosis Ovalocytes Schistocytes PT INR APTT 60.8 H Sodium Potassium Chloride Carbon Dioxide Anion Gap BUN Creatinine Estim Creat Clear Calc Estimated GFR Glucose POC Capillary Glucose 123 H 101 Calcium Phosphorus Magnesium Total Bilirubin AST ALT Alkaline Phosphatase Total Protein Albumin Quality VTE Prophylaxis VTE prophylaxis: mechanical ordered
[2024-10-18] MEDS: HEPARIN SOD/D5W 100 UNITS/ML 25,000 UNITS/250 ML BAG 14 UNITS IV CONT (17:24)
[2024-10-18 17:34] LABS: Glucose Point of Care 138 mg/dl (65-105)
[2024-10-18 18:22] LABS: Partial Thromboplastin Time 27.2 Seconds (22.3-36.8)
[2024-10-18] MEDS: HEPARIN SODIUM 5,000 UNITS/ML VIAL 6000 UNITS IV PUSH (18:32)
[2024-10-18 20:07] LABS: Glucose Point of Care 143 mg/dl (65-105)
[2024-10-19] VITALS (58 sets, daily range): BP systolic 83–109; BP diastolic 51–69; PULSE 62–79; RESP 12–20; TEMP 36.5–37; O2SAT 94–100
[2024-10-19 00:09] LABS: Glucose Point of Care 184 mg/dl (65-105)
[2024-10-19] MEDS: IPRATROPIUM 0.5 MG/ALBUTEROL SULFATE 2.5 MG AMPUL.NEB 3 ML INHALATION ×4 (01:50→19:33)
[2024-10-19 02:09] LABS: Partial Thromboplastin Time > 200.0 Seconds (22.3-36.8)
[2024-10-19] MEDS: NOREPINEPHRINE 8 MG/D5W 250 ML 8 MG/250 ML BAG 11.25 MG IV CONT (02:10)
[2024-10-19 04:29] LABS: Basophils Percent Auto 0.1 % (0.2-1.2); Hematocrit 36.5 % (42.0-52.0); Immature Granulocyte Absolute 0.05 K/mm3 (0.00-0.031); Immature Granulocyte Percent A 0.5 % (0-0.5); Immature Platelet Fraction Pct 3.7 % (0.9-11.2); Lymphocytes Absolute Auto 0.44 K/mm3 (0.9-3.2); Lymphocytes Percent Auto 4.7 % (18.3-44.2); Mean Corpuscular HGB Conc 32.9 g/dl (32-36); Mean Corpuscular Hemoglobin 31.3 pg (26-34); Mean Corpuscular Volume 95.3 fl (80-100); Mean Platelet Volume 10.7 fl (7.4-10.4); Monocytes Absolute Auto 1.1 K/mm3 (0.1-0.6); Monocytes Percent Auto 11.8 % (2.6-8.5); Neutrophils Absolute Auto 7.8 K/mm3 (1.3-6.7); Neutrophils Percent Auto 82.9 % (45.5-73.1); Platelet Count Result 115 k/mm3 (150-375); Red Blood Count 3.83 M/mm3 (4.6-6.20); Red Cell Distribution Width 17.5 % (11.5-14.5); White Blood Count 9.4 K/mm3 (4.5-10.0)
[2024-10-19 04:39] LABS: Alanine Aminotransferase 18 U/L (6-50); Albumin Level 3.5 g/dL (3.5-5.1); Alkaline Phosphatase 73 U/L (38-126); Anion Gap 19 mmol/L (4-12); Aspartate Amino Transferase 31 U/L (17-59); Bilirubin,Total 2.3 mg/dL (0.2-1.3); Blood Urea Nitrogen 76 mg/dL (9-20); Calcium 7.5 mg/dL (8.4-10.2); Carbon Dioxide 23 mmol/L (22-30); Chloride 93 mmol/L (98-107); Estimated CRCL calculation 11 ml/min; Estimated Glomerular Filt Rate 11; Glucose 201 mg/dL (65-110); Magnesium 2.3 mg/dL (1.6-2.3); Phosphorus 4.6 mg/dL (2.5-4.5); Potassium 4.7 mmol/L (3.4-5.0); Sodium 135 mmol/L (137-145)
[2024-10-19 04:49] LABS: Ovalocytes 1+; Platelet Estimate Decreased (Adequate)
[2024-10-19 04:50] LABS: Burr Cells 1+; Schistocytes Rare
[2024-10-19] MEDS: HYDROCORTISONE SODIUM SUCCINATE 100 MG/2 ML VIAL 50 MG IV PUSH ×2 (05:07→17:31)
[2024-10-19] MEDS: CENTRAL LINE FLUSH 10 ML IV PUSH ×3 (05:08→20:24)
[2024-10-19] MEDS: INSULIN ASPART (*BKC) 100 UNITS/ML SUB-Q ×4 (05:08→21:50)
[2024-10-19] MEDS: BUDESONIDE RESPULE NEB 0.5 MG/2 ML AMP INHALATION ×2 (07:56→19:33)
--- NOTE | 2024-10-19 08:17 | P.PNNP_ITS ---
Progress Note: A&P Assessment and Plan (1) End-stage renal disease (ESRD): Code(s): N18.6 - End stage renal disease Status: Chronic Assessment and Plan: * HD will do a DUF today. Will try to take off as much fluid as possible. yesterday 3400 was removed. Hopefully we can get that or more off today. * He is doing well today in regards to breathing. * Blood pressure is Doing pretty well. Levophed dropped to 4 mics now (2) Septic shock: Code(s): A41.9 - Sepsis, unspecified organism; R65.21 - Severe sepsis with septic shock Status: Acute Assessment and Plan: * recent cultures negative. * Blood pressure is better on less Levophed (3) Acute respiratory failure: Code(s): J96.00 - Acute respiratory failure, unspecified whether with hypoxia or hypercapnia Status: Acute Assessment and Plan: * multifactorial: * pneumonia * altered mental status * need for airway protection * fluid * off the ventilator. * breathing okay right now. * Will try to take off as much fluid on dialysis today (4) Bacteremia: Code(s): R78.81 - Bacteremia Status: Acute Assessment and Plan: * 10/08 blood cultures with Streptococcus mitis * 10/10 repeat set of blood culture with NO growth to date * TTE (10/11 )results noted: * left ventricular systolic function is normal, estimated at > 70% * left ventricular diastolic function is grade II diastolic dysfunction * right ventricular systolic function is reduced. * flattening of the septum in diastole and systole consistent with right ventricular volume and pressure overload * left and right atrial chamber dimension is severely enlarged * mild mitral valve regurgitation * moderate to severe tricuspid valve regurgitation. * pulmonary hypertension, estimated pulmonary arterial systolic pressureis 66 mmHg * cannot rule out vegetations on this study * ROBERT (10/13): * no vegetations noted on the mitral valve -- trace mitral valve regurgitation * no vegetations noted on tricuspid valve -- moderate tricuspid valve regurgitation * no vegetations on the aortic valve -- aortic valve is trileaflet * pulmonary valve appears grossly normal without vegetations * interatrial septum is anatomically normal without evidence of shunt with color-flow Doppler * mild atherosclerotic disease in the aorta. * on ceftriaxone * see #2 (5) Pneumonia: Code(s): J18.9 - Pneumonia, unspecified organism Status: Acute Assessment and Plan: * suggested by recent imaging (CXR + CT scan) * on ceftriaxone (6) Influenza A: Code(s): J10.1 - Influenza due to other identified influenza virus with other respiratory manifestations Status: Acute Assessment and Plan: * as noted by testing in ER * completed course of Tamiflu (7) Altered mental status: Code(s): R41.82 - Altered mental status, unspecified Status: Acute Assessment and Plan: * this seems gradually better (8) Anemia: Qualifiers: Anemia type: unspecified type Qualified Code(s): D64.9 - Anemia, unspecified Code(s): D64.9 - Anemia, unspecified Status: Chronic Assessment and Plan: * due to ESRD * hold Retacrit since Hgb > 11 * Hb 12 today (9) Diabetes: Qualifiers: Diabetes mellitus type: type 2 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 Diabetes mellitus complication status: with kidney complications Diabetes mellitus complication detail: with chronic kidney disease Chronic kidney disease stage: on chronic dialysis Qualified Code(s): E11.22 - Type 2 diabetes mellitus with diabetic chronic kidney disease; N18.6 - End stage renal disease; Z99.2 - Dependence on renal dialysis Code(s): E11.9 - Type 2 diabetes mellitus without complications Status: Chronic Assessment and Plan: * follow accu-cheks * glycemic control per hospitalist/mounter automatic Subjective Date/time seen: 10/19/24 08:17 Interval history: Khalif is a little more awake today. He says he feels okay but he is still very weak no shortness of breath Exam Narrative: General: pleasant male lying in the hospital bed in no acute distress Heart: IRRR, normal S1 and S2; no rub Lungs: Breath sounds symmetric and fairly clear Abdomen: soft, nontender, nondistended, positive bowel sounds Extremities:1+ presacral edema with chronic venous stasis changes in the shins Skin: no rash or subcu nodules Objective Data Vital Signs Vital Signs: Vital Signs - 24 hr 10/18/24 08:23 10/18/24 09:15 10/18/24 09:15 Temperature 97.7 F Pulse Rate 77 Respiratory Rate 16 Blood Pressure 110/66 Pulse Oximetry 97 99 Oxygen Delivery Nasal Cannula Oxygen Flow Rate 1 1 10/18/24 09:40 10/18/24 10:00 10/18/24 10:00 Temperature 98.1 F Pulse Rate 70 77 77 Respiratory Rate 14 Blood Pressure 110/66 92/50 L Pulse Oximetry 99 Oxygen Delivery Oxygen Flow Rate 10/18/24 10:00 10/18/24 10:00 10/18/24 10:06 Temperature Pulse Rate 77 75 81 Respiratory Rate Blood Pressure 96/52 L 95/51 L 89/49 L Pulse Oximetry Oxygen Delivery Oxygen Flow Rate 10/18/24 10:15 10/18/24 10:30 10/18/24 10:37 Temperature Pulse Rate 67 76 85 Respiratory Rate Blood Pressure 93/52 L 89/49 L 87/43 L Pulse Oximetry Oxygen Delivery Oxygen Flow Rate 10/18/24 10:45 10/18/24 10:53 10/18/24 10:53 Temperature Pulse Rate 79 78 78 Respiratory Rate Blood Pressure 91/50 L 94/51 L 94/51 L Pulse Oximetry Oxygen Delivery Oxygen Flow Rate 10/18/24 11:00 10/18/24 11:15 10/18/24 11:30 Temperature Pulse Rate 79 79 80 Respiratory Rate Blood Pressure 95/51 L 93/50 L 96/52 L Pulse Oximetry Oxygen Delivery Oxygen Flow Rate 10/18/24 11:45 10/18/24 11:55 10/18/24 12:00 Temperature 98.4 F Pulse Rate 85 78 80 Respiratory Rate 16 Blood Pressure 91/50 L 96/59 L 92/51 L Pulse Oximetry 99 Oxygen Delivery Oxygen Flow Rate 10/18/24 12:00 10/18/24 12:00 10/18/24 12:15 Temperature Pulse Rate 76 76 83 Respiratory Rate Blood Pressure 98/68 L 93/51 L Pulse Oximetry Oxygen Delivery Oxygen Flow Rate 10/18/24 12:30 10/18/24 12:45 10/18/24 13:00 Temperature Pulse Rate 83 81 80 Respiratory Rate Blood Pressure 95/52 L 93/50 L 95/51 L Pulse Oximetry Oxygen Delivery Oxygen Flow Rate 10/18/24 13:00 10/18/24 13:10 10/18/24 13:10 Temperature Pulse Rate 80 76 82 Respiratory Rate Blood Pressure 109/64 98/51 L 101/53 L Pulse Oximetry Oxygen Delivery Oxygen Flow Rate 10/18/24 13:19 10/18/24 13:29 10/18/24 13:30 Temperature 97.8 F Pulse Rate 76 71 72 Respiratory Rate 18 Blood Pressure 101/51 L 102/52 L 103/62 Pulse Oximetry 100 Oxygen Delivery Oxygen Flow Rate 10/18/24 14:00 10/18/24 14:00 10/18/24 14:00 Temperature 98.2 F Pulse Rate 75 73 74 Respiratory Rate 16 Blood Pressure 102/55 L 100/57 L Pulse Oximetry 99 Oxygen Delivery Oxygen Flow Rate 10/18/24 15:00 10/18/24 15:11 10/18/24 15:36 Temperature Pulse Rate 71 69 73 Respiratory Rate Blood Pressure 102/56 L 101/54 L 103/61 Pulse Oximetry Oxygen Delivery Oxygen Flow Rate 10/18/24 16:00 10/18/24 16:00 10/18/24 16:00 Temperature 98.9 F Pulse Rate 73 73 73 Respiratory Rate 14 Blood Pressure 102/60 99/64 L Pulse Oximetry 98 Oxygen Delivery Oxygen Flow Rate 10/18/24 17:06 10/18/24 18:00 10/18/24 18:00 Temperature 98.8 F Pulse Rate 77 74 75 Respiratory Rate 20 Blood Pressure 117/82 94/55 L Pulse Oximetry 96 Oxygen Delivery Oxygen Flow Rate 10/18/24 18:00 10/18/24 20:00 10/18/24 20:00 Temperature Pulse Rate 74 78 70 Respiratory Rate 18 Blood Pressure 94/55 L 100/53 L Pulse Oximetry 97 Oxygen Delivery Nasal Cannula Oxygen Flow Rate 2 10/18/24 20:00 10/18/24 20:00 10/18/24 20:42 Temperature 98.3 F Pulse Rate 78 78 74 Respiratory Rate 17 18 Blood Pressure 100/53 L Pulse Oximetry 97 Oxygen Delivery Oxygen Flow Rate 10/18/24 20:52 10/18/24 20:59 10/18/24 22:00 Temperature Pulse Rate 70 70 Respiratory Rate 18 Blood Pressure Pulse Oximetry 97 Oxygen Delivery Nasal Cannula Oxygen Flow Rate 1 10/18/24 22:00 10/18/24 22:00 10/18/24 23:00 Temperature Pulse Rate 76 72 77 Respiratory Rate 18 Blood Pressure 91/54 L 91/51 L 102/58 L Pulse Oximetry 97 Oxygen Delivery Oxygen Flow Rate 10/18/24 23:28 10/19/24 00:00 10/19/24 00:00 Temperature 98.6 F Pulse Rate 71 76 76 Respiratory Rate 19 16 Blood Pressure 94/54 L Pulse Oximetry 98 98 Oxygen Delivery Nasal Cannula Oxygen Flow Rate 1 10/19/24 00:01 10/19/24 01:45 10/19/24 01:51 Temperature Pulse Rate 76 76 73 Respiratory Rate 18 Blood Pressure 94/54 L 84/53 L Pulse Oximetry Oxygen Delivery Oxygen Flow Rate 10/19/24 02:00 10/19/24 02:00 10/19/24 02:00 Temperature Pulse Rate 76 76 76 Respiratory Rate 15 Blood Pressure 92/53 L 92/53 L Pulse Oximetry 100 Oxygen Delivery Oxygen Flow Rate 10/19/24 02:01 10/19/24 02:10 10/19/24 02:10 Temperature Pulse Rate 73 70 70 Respiratory Rate 18 Blood Pressure 92/53 L 92/53 L Pulse Oximetry Oxygen Delivery Oxygen Flow Rate 10/19/24 03:00 10/19/24 03:15 10/19/24 03:38 Temperature Pulse Rate 72 70 70 Respiratory Rate 18 Blood Pressure 89/60 L 97/55 L Pulse Oximetry 98 Oxygen Delivery Nasal Cannula Oxygen Flow Rate 1 10/19/24 04:00 10/19/24 04:00 10/19/24 04:00 Temperature 98.5 F Pulse Rate 67 70 69 Respiratory Rate 17 Blood Pressure 89/52 L 89/52 L Pulse Oximetry 98 Oxygen Delivery Oxygen Flow Rate 10/19/24 04:30 10/19/24 05:45 10/19/24 06:00 Temperature Pulse Rate 78 72 79 Respiratory Rate Blood Pressure 109/59 L 108/59 L Pulse Oximetry Oxygen Delivery Oxygen Flow Rate 10/19/24 06:00 10/19/24 06:00 10/19/24 06:15 Temperature Pulse Rate 78 73 73 Respiratory Rate 20 Blood Pressure 99/64 L 99/64 L 107/62 Pulse Oximetry 97 Oxygen Delivery Oxygen Flow Rate 10/19/24 06:30 10/19/24 07:15 Temperature Pulse Rate 75 75 Respiratory Rate Blood Pressure 100/59 L 94/57 L Pulse Oximetry Oxygen Delivery Oxygen Flow Rate Intake/Output Intake/Output: Intake & Output 10/16/24 10/17/24 10/18/24 10/19/24 23:59 23:59 23:59 23:59 Intake Total 1896.4 599.8 721.8 255.6 Output Total 100 0 2600 0 Balance 1796.4 599.8 -1878.2 255.6 Meds/Results Medications: Active Medications Generic Name Dose Route Start Last Admin Trade Name Freq PRN Reason Stop Dose Admin Acetaminophen 650 mg 10/08/24 20:49 Acetaminophen 650 Mg Suppository RECTAL Q6H PRN Mild Pain (1-3) or Fever Albuterol/Ipratropium 3 ml 10/09/24 14:00 10/19/24 07:56 Ipratropium 0.5 Mg/Albuterol Sulfate 2.5 Mg Ampul.Neb 3 Ml INHALATION 3 ml Q6HRT CESAR Administration Allopurinol 100 mg 10/09/24 08:00 10/18/24 08:54 Allopurinol 100 Mg Tablet PO Not Given DAILY@0800 CESAR Apixaban 2.5 mg 10/09/24 09:00 10/18/24 20:42 Apixaban 2.5 Mg Tablet PO Not Given Q12HR CESAR Atorvastatin Calcium 10 mg 10/09/24 09:00 10/18/24 08:54 Atorvastatin 10 Mg Tablet PO Not Given DAILY CESAR Budesonide 0.5 mg 10/09/24 20:00 10/19/24 07:56 Budesonide Respule Neb 0.5 Mg/2 Ml Amp INHALATION 0.5 mg Q12HRT CESAR Administration Dextrose 12.5 gm 10/08/24 22:06 10/17/24 09:53 Dextrose 50% 25 Gm/50 Ml Syringe IV PUSH 12.5 gm PRN PRN Administration Hypoglycemia Protocol Glucagon 1 mg 10/08/24 22:06 Glucagon For Inj 1 Mg Vial IM PRN PRN Hypoglycemia Protocol Glucose 15 gm 10/08/24 22:06 Glucose Oral Gel 15 Gm Of Glucse In 37.5 Gm Tube PO PRN PRN Hypoglycemia Protocol Heparin Sodium (Porcine) 6,000 units 10/17/24 21:36 10/18/24 18:32 Heparin Sodium 5,000 Units/Ml Vial IV PUSH 6,000 units PRN PRN Administration aPTT less than 55 seconds Heparin Sodium (Porcine) 3,000 units 10/17/24 21:36 10/18/24 11:35 Heparin Sodium 5,000 Units/Ml Vial IV PUSH 3,000 units PRN PRN Administration aPTT 55 - 70 seconds Hydrocortisone Sodium Succinate 50 mg 10/17/24 18:00 10/19/24 05:07 Hydrocortisone Sodium Succinate 100 Mg/2 Ml Vial IV PUSH 50 mg Q12H CESAR Administration Dextrose 1,000 mls @ 100 mls/hr 10/08/24 22:06 Dextrose 5% 1,000 Ml IVPB PRN PRN Hypoglycemia Protocol Norepinephrine Bitartrate 8 mg in 250 mls @ 7.5 mls/hr 10/13/24 05:05 10/19/24 07:15 Levophed 8 Mg/D5w 250 Ml IV CONT 4 mcg/min .Q24H CESAR 7.5 mls/hr Titration Protocol 4 MCG/MIN Albumin Human 50 mls @ 999 mls/hr 10/14/24 06:24 10/15/24 17:30 Albutein IVPB 11/13/24 06:23 Infused Q10M PRN Infusion HYPOTENSION Heparin Sodium/Dextrose 25,000 units in 250 mls @ 15 mls/hr 10/17/24 22:00 10/19/24 07:15 Heparin Sodium/D5w 100 Units/Ml IV CONT 1,500 units/hr .[id number] CESAR 15 mls/hr Titration Protocol 1,500 UNITS/HR Insulin Aspart 4 - 8 units 10/11/24 12:00 10/19/24 05:08 Insulin Aspart (*Bkc) 100 Units/Ml SUB-Q 4 units Q4H CESAR Administration Protocol Midodrine 10 mg 10/15/24 13:00 10/18/24 19:15 Midodrine Hcl 10 Mg Tablet PO Not Given TID CESAR Multi-Ingred Cream/Lotion/Oil/Oint 1 applic 10/10/24 09:00 10/18/24 20:42 Mineral Oil/White Petrolatum Ointment EACH EYE Not Given Q12HR CESAR Neomycin/Polymyxin/Bacitracin 1 applic 10/17/24 09:00 10/18/24 08:56 Neomycin/Polymyxin/Bacitracin Ointment 15 Gm Tube TOPICAL 1 applic QAM CESAR Administration Pantoprazole Sodium 40 mg 10/09/24 13:45 10/18/24 08:56 Pantoprazole Sodium Iv 40 Mg Vial IV PUSH 40 mg QAM CESAR Administration Polyethylene Glycol 17 gm 10/15/24 10:25 10/18/24 08:55 Polyethylene Glycol 3350 17 Gm Powd.Pack PO Not Given QAM CESAR Fluticasone/Salmeterol 2 puff 10/09/24 08:00 10/09/24 09:26 Fluticasone/Salmeterol 115-21 Mcg Inhaler 1 Puff INHALATION Not Given Q12HRT CESAR Sevelamer Carbonate 1.6 gm 10/14/24 08:45 10/18/24 19:15 Sevelamer Carbonate 0.8 Gm Oral Powder Packet BY MOUTH Not Given TIDWM CESAR Sodium Chloride 10 ml 10/09/24 14:00 10/19/24 05:08 Central Line Flush IV PUSH 10 ml Q8HR CESAR Administration Sodium Chloride 20 ml 10/09/24 06:24 10/18/24 05:38 Central Line Flush IV PUSH 20 ml PRN PRN Administration after blood draws Radiology Results: ITS Impressions Pelvis X-Ray 10/08/24 22:22 IMPRESSION: As above. Head CT 10/08/24 23:18 IMPRESSION: No acute intracranial findings. Chest CT 10/08/24 23:27 IMPRESSION: 1. Interstitial thickening in the lower lobes which may indicate pneumonitis. Edema is less likely. 2. Cardiomegaly. 3. Cholelithiasis 4. Splenic cysts unchanged. Abdomen X-Ray 10/13/24 15:22 IMPRESSION: Nasogastric tube in good position and ready for immediate use. Modified Barium Swallow 10/18/24 17:03 IMPRESSION: Oropharyngeal dysphagia including laryngeal penetration with aspiration. Please correlate with speech pathologist findings and specific feeding recommendations. Chest X-Ray 10/19/24 06:18 Impression: Moderate pulmonary edema pattern with small right pleural effusion. Correlate clinically for pneumonia. Labs Labs: Laboratory Results - last 24 hr 10/18/24 10/18/24 10/18/24 09:14 10:51 11:34 WBC RBC Hgb Hct MCV MCH MCHC RDW Plt Count MPV Immature Gran % (Auto) Neut % (Auto) Lymph % (Auto) [place] % (Auto) Eos % (Auto) Baso % (Auto) Lymph # (Auto) [place] # (Auto) Eos # (Auto) Baso # (Auto) Abs Immat Gran (auto) Absolute Neuts (auto) Absolute Nucleated RBC Band Neutrophils % Nucleated RBC % Platelet Estimate % Immature Plt Fraction Ovalocytes Stark Cells Schistocytes APTT 60.8 H Sodium Potassium Chloride Carbon Dioxide Anion Gap BUN Creatinine Estim Creat Clear Calc Estimated GFR Glucose POC Capillary Glucose 123 H 101 Calcium Phosphorus Magnesium Total Bilirubin AST ALT Alkaline Phosphatase Total Protein Albumin 10/18/24 10/18/24 10/18/24 17:24 17:49 20:04 WBC RBC Hgb Hct MCV MCH MCHC RDW Plt Count MPV Immature Gran % (Auto) Neut % (Auto) Lymph % (Auto) [place] % (Auto) Eos % (Auto) Baso % (Auto) Lymph # (Auto) [place] # (Auto) Eos # (Auto) Baso # (Auto) Abs Immat Gran (auto) Absolute Neuts (auto) Absolute Nucleated RBC Band Neutrophils % Nucleated RBC % Platelet Estimate % Immature Plt Fraction Ovalocytes Stark Cells Schistocytes APTT 27.2 Sodium Potassium Chloride Carbon Dioxide Anion Gap BUN Creatinine Estim Creat Clear Calc Estimated GFR Glucose POC Capillary Glucose 138 H 143 H Calcium Phosphorus Magnesium Total Bilirubin AST ALT Alkaline Phosphatase Total Protein Albumin 10/18/24 10/19/24 10/19/24 23:59 01:13 04:20 WBC 9.4 RBC 3.83 L Hgb 12.0 L Hct 36.5 L MCV 95.3 MCH 31.3 MCHC 32.9 RDW 17.5 H Plt Count 115 L MPV 10.7 H Immature Gran % (Auto) 0.5 Neut % (Auto) 82.9 H Lymph % (Auto) 4.7 L [place] % (Auto) 11.8 H Eos % (Auto) 0.0 Baso % (Auto) 0.1 L Lymph # (Auto) 0.44 L [place] # (Auto) 1.1 H Eos # (Auto) 0.0 Baso # (Auto) 0.0 Abs Immat Gran (auto) 0.05 H Absolute Neuts (auto) 7.8 H Absolute Nucleated RBC 0.000 Band Neutrophils % Not Reportable Nucleated RBC % 0.0 Platelet Estimate Decreased % Immature Plt Fraction 3.7 Ovalocytes 1+ [place] Cells 1+ Schistocytes Rare APTT > 200.0 H* Sodium 135 L Potassium 4.7 Chloride 93 L Carbon Dioxide 23 Anion Gap 19 H BUN 76 H D Creatinine 4.88 H Estim Creat Clear Calc 11 Estimated GFR 11 L Glucose 201 H POC Capillary Glucose 184 H Calcium 7.5 L Phosphorus 4.6 H Magnesium 2.3 Total Bilirubin 2.3 H AST 31 ALT 18 Alkaline Phosphatase 73 Total Protein 7.0 Albumin 3.5
--- NOTE | 2024-10-19 08:24 | WPDINTPN ---
Progress Note: A&P Assessment and Plan (1) Respiratory failure: Code(s): J96.90 - Respiratory failure, unspecified, unspecified whether with hypoxia or hypercapnia Status: Acute Assessment and Plan: Acute respiratory failure likely related to pneumonia, altered mental status, airway protection -10/08: Intubated -10/16: Extubated - continue bronchodilators and Pulmicort -chest x-ray reviewed, will have respiratory therapist encourage incentive spirometry, EzPAP -speech for bedside swallow evaluation, -10/18: Failed modified barium swallow -will have the above tube placed by Interventional Radiology -PT/OT to continue to follow, up in chair, significant weakness (2) Septic shock: Code(s): A41.9 - Sepsis, unspecified organism; R65.21 - Severe sepsis with septic shock Status: Acute Assessment and Plan: Patient presented with altered mental status, hypotension, lactic acidosis -septic shock likely related to bacteremia, bilateral pneumonia along with influenza -continue ceftriaxone (10/08) -status post azithromycin and vancomycin -10/08: Blood cultures growing strep mitis -10/10 repeat set of blood culture sent and negative till now -TTE and ROBERT are negative for evidence of valve vegetations -patient remains on Levophed but off of epinephrine and vasopressin, maintain SBP >90 mmHg. (patient's blood pressure is normally runs low according to his family) -weaning hydrocortisone -patient on midodrine, currently NPO after extubation, patient received above tube today, will restart midodrine after the 10/18: Still requiring Levophed, afebrile, WBC trending down. Blood cultures were obtained and pending 10/19: Levophed being weaned (3) Bacteremia: Code(s): R78.81 - Bacteremia Status: Acute Assessment and Plan: 10/08: Blood cultures growing strep mitis group 10/10 repeat set of blood culture sent and negative till now -continue antibiotics as above TTE as below ROBERT negative for evidence of vegetation (4) Influenza A: Code(s): J10.1 - Influenza due to other identified influenza virus with other respiratory manifestations Status: Acute Assessment and Plan: Completed a course of renally dosed Tamiflu (5) Pneumonia: Code(s): J18.9 - Pneumonia, unspecified organism Status: Acute Assessment and Plan: Chest x-ray showed pneumonia, CT chest showed pneumonitis, -continue antibiotics as above (6) Altered mental status: Code(s): R41.82 - Altered mental status, unspecified Status: Acute Assessment and Plan: Currently intubated and sedated Head CT was negative for any acute changes at the time presentation (7) End-stage renal disease on hemodialysis: Code(s): N18.6 - End stage renal disease; Z99.2 - Dependence on renal dialysis Status: Acute Assessment and Plan: End-stage renal disease on dialysis (M, W, F) -dialysis per Nephrology. (8) Diabetes: Qualifiers: Diabetes mellitus type: type 2 Diabetes mellitus detention insulin use: without roasterman use Diabetes mellitus complication status: with kidney complications Diabetes mellitus complication detail: with chronic kidney disease Chronic kidney disease stage: on chronic dialysis Qualified Code(s): E11.22 - Type 2 diabetes mellitus with diabetic chronic kidney disease; N18.6 - End stage renal disease; Z99.2 - Dependence on renal dialysis Code(s): E11.9 - Type 2 diabetes mellitus without complications Status: Chronic Assessment and Plan: Continue current sliding scale and -Lantus discontinued as patient NPO Plan DVT prophylaxis: SCDs, patient was on Eliquis, now that he is extubated and but not taking anything p.o., started on heparin infusion on 10/17 Stress ulcer prophylaxis: Protonix Nutrition: Patient failed bedside swallow evaluation and modified barium swallow. Have ordered a Dobbhoff tube to be placed by IR today Code Status: Full code Critical Care Time Spent: 32 minutes Discussed with patient's son and spouse and updated them with patient's condition and plan of care. I answered all the questions Due to a high probability of clinically significant, life threatening deterioration, the patient required my highest level of preparedness to intervene emergently and I personally spent this critical care time directly and personally managing the patient. This critical care time included obtaining a history; examining the patient; pulse oximetry; ordering and review of studies; arranging urgent treatment with development of a management plan; evaluation of patient's response to treatment; frequent reassessment; and discussions with other providers. It was exclusive of separately billable procedures and treating other patients and teaching time. Please see Assessment and Plan section and the rest of the note for further information on patient assessment and treatment This dictation may have been done utilizing a voice recognition system. Attempts have been made to correct errors. However, there may be uncorrected grammatical, spelling, and recognitions errors present. Subjective Date/time seen: 10/19/24 08:24 Interval history: Reason for consult: Altered mental status, generalized weakness, hypotension, shock, acute respiratory failure, Gram-positive cocci in chains bacteremia, influenza A positive, MRSA screen positive 10/08: Intubated 10/16: Extubated 10/19/2024: Patient seen and examined the ICU, on room air, adequate O2 sats. Is awake, alert, able to give one-word answers. Follows simple commands in all extremities. More awake this morning. Denies any shortness of breath, chest pain, abdominal pain. Had dialysis yesterday with 2600 mL in fluid removal. Remains on heparin infusion. Failed modified barium swallow test yesterday. Levophed is being weaned Review of Systems Review of Systems: All systems reviewed & are unremarkable except as noted in HPI and below Exam Narrative: General: Patient on nasal cannula, awake, in no acute distress HEENT:? Pupils equal and reactive bilaterally Neck:? Supple Respiratory:? Coarse breath sounds bilaterally, decreased at bases, no wheezing, adequate air entry Cardiac:? Irregularly irregular, rate controlled Abdomen:? Soft, nontender, nondistended, protuberant, hypoactive bowel sounds Extremities:? Bilateral lower extremity edema pitting in nature, palpable pedal pulses Neuro:? Patient is awake, alert, nods to questions, answers yes or no to questions. Follows simple commands and upper extremities but not in lower extremities, generalized weakness Skin:? No skin lesions noted Psych:? Unable to assess at this time Objective Data Vital Signs Vital Signs: Vital Signs - 24 hr 10/18/24 09:15 10/18/24 09:15 10/18/24 09:40 Temperature 97.7 F Pulse Rate 77 70 Respiratory Rate 16 Blood Pressure 110/66 110/66 Pulse Oximetry 99 Oxygen Delivery Oxygen Flow Rate 1 10/18/24 10:00 10/18/24 10:00 10/18/24 10:00 Temperature 98.1 F Pulse Rate 77 77 77 Respiratory Rate 14 Blood Pressure 92/50 L 96/52 L Pulse Oximetry 99 Oxygen Delivery Oxygen Flow Rate 10/18/24 10:00 10/18/24 10:06 10/18/24 10:15 Temperature Pulse Rate 75 81 67 Respiratory Rate Blood Pressure 95/51 L 89/49 L 93/52 L Pulse Oximetry Oxygen Delivery Oxygen Flow Rate 10/18/24 10:30 10/18/24 10:37 10/18/24 10:45 Temperature Pulse Rate 76 85 79 Respiratory Rate Blood Pressure 89/49 L 87/43 L 91/50 L Pulse Oximetry Oxygen Delivery Oxygen Flow Rate 10/18/24 10:53 10/18/24 10:53 10/18/24 11:00 Temperature Pulse Rate 78 78 79 Respiratory Rate Blood Pressure 94/51 L 94/51 L 95/51 L Pulse Oximetry Oxygen Delivery Oxygen Flow Rate 10/18/24 11:15 10/18/24 11:30 10/18/24 11:45 Temperature Pulse Rate 79 80 85 Respiratory Rate Blood Pressure 93/50 L 96/52 L 91/50 L Pulse Oximetry Oxygen Delivery Oxygen Flow Rate 10/18/24 11:55 10/18/24 12:00 10/18/24 12:00 Temperature 98.4 F Pulse Rate 78 80 76 Respiratory Rate 16 Blood Pressure 96/59 L 92/51 L Pulse Oximetry 99 Oxygen Delivery Oxygen Flow Rate 10/18/24 12:00 10/18/24 12:15 10/18/24 12:30 Temperature Pulse Rate 76 83 83 Respiratory Rate Blood Pressure 98/68 L 93/51 L 95/52 L Pulse Oximetry Oxygen Delivery Oxygen Flow Rate 10/18/24 12:45 10/18/24 13:00 10/18/24 13:00 Temperature Pulse Rate 81 80 80 Respiratory Rate Blood Pressure 93/50 L 95/51 L 109/64 Pulse Oximetry Oxygen Delivery Oxygen Flow Rate 10/18/24 13:10 10/18/24 13:10 10/18/24 13:19 Temperature Pulse Rate 76 82 76 Respiratory Rate Blood Pressure 98/51 L 101/53 L 101/51 L Pulse Oximetry Oxygen Delivery Oxygen Flow Rate 10/18/24 13:29 10/18/24 13:30 10/18/24 14:00 Temperature 97.8 F Pulse Rate 71 72 75 Respiratory Rate 18 Blood Pressure 102/52 L 103/62 102/55 L Pulse Oximetry 100 Oxygen Delivery Oxygen Flow Rate 10/18/24 14:00 10/18/24 14:00 10/18/24 15:00 Temperature 98.2 F Pulse Rate 73 74 71 Respiratory Rate 16 Blood Pressure 100/57 L 102/56 L Pulse Oximetry 99 Oxygen Delivery Oxygen Flow Rate 10/18/24 15:11 10/18/24 15:36 10/18/24 16:00 Temperature Pulse Rate 69 73 73 Respiratory Rate Blood Pressure 101/54 L 103/61 102/60 Pulse Oximetry Oxygen Delivery Oxygen Flow Rate 10/18/24 16:00 10/18/24 16:00 10/18/24 17:06 Temperature 98.9 F Pulse Rate 73 73 77 Respiratory Rate 14 Blood Pressure 99/64 L 117/82 Pulse Oximetry 98 Oxygen Delivery Oxygen Flow Rate 10/18/24 18:00 10/18/24 18:00 10/18/24 18:00 Temperature 98.8 F Pulse Rate 74 75 74 Respiratory Rate 20 Blood Pressure 94/55 L 94/55 L Pulse Oximetry 96 Oxygen Delivery Oxygen Flow Rate 10/18/24 20:00 10/18/24 20:00 10/18/24 20:00 Temperature 98.3 F Pulse Rate 78 70 78 Respiratory Rate 18 17 Blood Pressure 100/53 L 100/53 L Pulse Oximetry 97 97 Oxygen Delivery Nasal Cannula Oxygen Flow Rate 2 10/18/24 20:00 10/18/24 20:42 10/18/24 20:52 Temperature Pulse Rate 78 74 Respiratory Rate 18 Blood Pressure Pulse Oximetry 97 Oxygen Delivery Nasal Cannula Oxygen Flow Rate 1 10/18/24 20:59 10/18/24 22:00 10/18/24 22:00 Temperature Pulse Rate 70 70 76 Respiratory Rate 18 18 Blood Pressure 91/54 L Pulse Oximetry 97 Oxygen Delivery Oxygen Flow Rate 10/18/24 22:00 10/18/24 23:00 10/18/24 23:28 Temperature Pulse Rate 72 77 71 Respiratory Rate 19 Blood Pressure 91/51 L 102/58 L Pulse Oximetry 98 Oxygen Delivery Nasal Cannula Oxygen Flow Rate 1 10/19/24 00:00 10/19/24 00:00 10/19/24 00:01 Temperature 98.6 F Pulse Rate 76 76 76 Respiratory Rate 16 Blood Pressure 94/54 L 94/54 L Pulse Oximetry 98 Oxygen Delivery Oxygen Flow Rate 10/19/24 01:45 10/19/24 01:51 10/19/24 02:00 Temperature Pulse Rate 76 73 76 Respiratory Rate 18 Blood Pressure 84/53 L Pulse Oximetry Oxygen Delivery Oxygen Flow Rate 10/19/24 02:00 10/19/24 02:00 10/19/24 02:01 Temperature Pulse Rate 76 76 73 Respiratory Rate 15 18 Blood Pressure 92/53 L 92/53 L Pulse Oximetry 100 Oxygen Delivery Oxygen Flow Rate 10/19/24 02:10 10/19/24 02:10 10/19/24 03:00 Temperature Pulse Rate 70 70 72 Respiratory Rate Blood Pressure 92/53 L 92/53 L 89/60 L Pulse Oximetry Oxygen Delivery Oxygen Flow Rate 10/19/24 03:15 10/19/24 03:38 10/19/24 04:00 Temperature 98.5 F Pulse Rate 70 70 67 Respiratory Rate 18 17 Blood Pressure 97/55 L 89/52 L Pulse Oximetry 98 98 Oxygen Delivery Nasal Cannula Oxygen Flow Rate 1 10/19/24 04:00 10/19/24 04:00 10/19/24 04:30 Temperature Pulse Rate 70 69 78 Respiratory Rate Blood Pressure 89/52 L 109/59 L Pulse Oximetry Oxygen Delivery Oxygen Flow Rate 10/19/24 05:45 10/19/24 06:00 10/19/24 06:00 Temperature Pulse Rate 72 79 78 Respiratory Rate 20 Blood Pressure 108/59 L 99/64 L Pulse Oximetry 97 Oxygen Delivery Oxygen Flow Rate 10/19/24 06:00 10/19/24 06:15 10/19/24 06:30 Temperature Pulse Rate 73 73 75 Respiratory Rate Blood Pressure 99/64 L 107/62 100/59 L Pulse Oximetry Oxygen Delivery Oxygen Flow Rate 10/19/24 07:15 10/19/24 08:00 10/19/24 08:00 Temperature Pulse Rate 75 70 Respiratory Rate 20 Blood Pressure 94/57 L Pulse Oximetry 97 Oxygen Delivery Nasal Cannula Oxygen Flow Rate 1 10/19/24 08:00 10/19/24 08:18 10/19/24 08:18 Temperature 98.3 F Pulse Rate 72 74 Respiratory Rate 19 20 Blood Pressure 102/63 Pulse Oximetry 98 96 Oxygen Delivery Room Air Oxygen Flow Rate Intake/Output Intake/Output: Intake & Output 10/16/24 10/17/24 10/18/24 10/19/24 23:59 23:59 23:59 23:59 Intake Total 1896.4 599.8 721.8 255.6 Output Total 100 0 2600 0 Balance 1796.4 599.8 -1878.2 255.6 Meds/Results Medications: Active Medications Generic Name Dose Route Start Last Admin Trade Name Freq PRN Reason Stop Dose Admin Acetaminophen 650 mg 10/08/24 20:49 Acetaminophen 650 Mg Suppository RECTAL Q6H PRN Mild Pain (1-3) or Fever Albuterol/Ipratropium 3 ml 10/09/24 14:00 10/19/24 07:56 Ipratropium 0.5 Mg/Albuterol Sulfate 2.5 Mg Ampul.Neb 3 Ml INHALATION 3 ml Q6HRT CESAR Administration Allopurinol 100 mg 10/09/24 08:00 10/18/24 08:54 Allopurinol 100 Mg Tablet PO Not Given DAILY@0800 [facility] Apixaban 2.5 mg 10/09/24 09:00 10/18/24 20:42 Apixaban 2.5 Mg Tablet PO Not Given Q12HR [facility] Atorvastatin Calcium 10 mg 10/09/24 09:00 10/18/24 08:54 Atorvastatin 10 Mg Tablet PO Not Given DAILY [facility] Budesonide 0.5 mg 10/09/24 20:00 10/19/24 07:56 Budesonide Respule Neb 0.5 Mg/2 Ml Amp INHALATION 0.5 mg Q12HRT CESAR Administration Dextrose 12.5 gm 10/08/24 22:06 10/17/24 09:53 Dextrose 50% 25 Gm/50 Ml Syringe IV PUSH 12.5 gm PRN PRN Administration Hypoglycemia Protocol Glucagon 1 mg 10/08/24 22:06 Glucagon For Inj 1 Mg Vial IM PRN PRN Hypoglycemia Protocol Glucose 15 gm 10/08/24 22:06 Glucose Oral Gel 15 Gm Of Glucse In 37.5 Gm Tube PO PRN PRN Hypoglycemia Protocol Heparin Sodium (Porcine) 6,000 units 10/17/24 21:36 10/18/24 18:32 Heparin Sodium 5,000 Units/Ml Vial IV PUSH 6,000 units PRN PRN Administration aPTT less than 55 seconds Heparin Sodium (Porcine) 3,000 units 10/17/24 21:36 10/18/24 11:35 Heparin Sodium 5,000 Units/Ml Vial IV PUSH 3,000 units PRN PRN Administration aPTT 55 - 70 seconds Hydrocortisone Sodium Succinate 50 mg 10/17/24 18:00 10/19/24 05:07 Hydrocortisone Sodium Succinate 100 Mg/2 Ml Vial IV PUSH 50 mg Q12H CESAR Administration Dextrose 1,000 mls @ 100 mls/hr 10/08/24 22:06 Dextrose 5% 1,000 Ml IVPB PRN PRN Hypoglycemia Protocol Norepinephrine Bitartrate 8 mg in 250 mls @ 7.5 mls/hr 10/13/24 05:05 10/19/24 07:15 Levophed 8 Mg/D5w 250 Ml IV CONT 4 mcg/min .Q24H CESAR 7.5 mls/hr Titration Protocol 4 MCG/MIN Albumin Human 50 mls @ 999 mls/hr 10/14/24 06:24 10/15/24 17:30 Albutein IVPB 11/13/24 06:23 Infused Q10M PRN Infusion HYPOTENSION Heparin Sodium/Dextrose 25,000 units in 250 mls @ 15 mls/hr 10/17/24 22:00 10/19/24 07:15 Heparin Sodium/D5w 100 Units/Ml IV CONT 1,500 units/hr .[id number] CESAR 15 mls/hr Titration Protocol 1,500 UNITS/HR Albumin Human 50 mls @ 999 mls/hr 10/19/24 08:21 Albutein IVPB 10/20/24 08:20 Q10M PRN HYPOTENSION Sodium Chloride 1,000 mls @ 999 mls/hr 10/19/24 08:21 Normal Saline Iv IV CONT 10/19/24 09:21 .Q1H1M ONE Insulin Aspart 4 - 8 units 10/11/24 12:00 10/19/24 05:08 Insulin Aspart (*Bkc) 100 Units/Ml SUB-Q 4 units Q4H CESAR Administration Protocol Midodrine 10 mg 10/15/24 13:00 10/18/24 19:15 Midodrine Hcl 10 Mg Tablet PO Not Given TID CESAR Multi-Ingred Cream/Lotion/Oil/Oint 1 applic 10/10/24 09:00 10/18/24 20:42 Mineral Oil/White Petrolatum Ointment EACH EYE Not Given Q12HR CESAR Neomycin/Polymyxin/Bacitracin 1 applic 10/17/24 09:00 10/18/24 08:56 Neomycin/Polymyxin/Bacitracin Ointment 15 Gm Tube TOPICAL 1 applic QAM CESAR Administration Pantoprazole Sodium 40 mg 10/09/24 13:45 10/18/24 08:56 Pantoprazole Sodium Iv 40 Mg Vial IV PUSH 40 mg QAM CESAR Administration Polyethylene Glycol 17 gm 10/15/24 10:25 10/18/24 08:55 Polyethylene Glycol 3350 17 Gm Powd.Pack PO Not Given QAM CESAR Fluticasone/Salmeterol 2 puff 10/09/24 08:00 10/09/24 09:26 Fluticasone/Salmeterol 115-21 Mcg Inhaler 1 Puff INHALATION Not Given Q12HRT CESAR Sevelamer Carbonate 1.6 gm 10/14/24 08:45 10/18/24 19:15 Sevelamer Carbonate 0.8 Gm Oral Powder Packet BY MOUTH Not Given TIDWM CESAR Sodium Chloride 10 ml 10/09/24 14:00 10/19/24 05:08 Central Line Flush IV PUSH 10 ml Q8HR CESAR Administration Sodium Chloride 20 ml 10/09/24 06:24 10/18/24 05:38 Central Line Flush IV PUSH 20 ml PRN PRN Administration after blood draws Radiology Results: ITS Impressions Pelvis X-Ray 10/08/24 22:22 IMPRESSION: As above. Head CT 10/08/24 23:18 IMPRESSION: No acute intracranial findings. Chest CT 10/08/24 23:27 IMPRESSION: 1. Interstitial thickening in the lower lobes which may indicate pneumonitis. Edema is less likely. 2. Cardiomegaly. 3. Cholelithiasis 4. Splenic cysts unchanged. Abdomen X-Ray 10/13/24 15:22 IMPRESSION: Nasogastric tube in good position and ready for immediate use. Modified Barium Swallow 10/18/24 17:03 IMPRESSION: Oropharyngeal dysphagia including laryngeal penetration with aspiration. Please correlate with speech pathologist findings and specific feeding recommendations. Chest X-Ray 10/19/24 06:18 Impression: Moderate pulmonary edema pattern with small right pleural effusion. Correlate clinically for pneumonia. Labs Labs: Laboratory Results - last 24 hr 10/18/24 10/18/24 10/18/24 09:14 10:51 11:34 WBC RBC Hgb Hct MCV MCH MCHC RDW Plt Count MPV Immature Gran % (Auto) Neut % (Auto) Lymph % (Auto) [place] % (Auto) Eos % (Auto) Baso % (Auto) Lymph # (Auto) [place] # (Auto) Eos # (Auto) Baso # (Auto) Abs Immat Gran (auto) Absolute Neuts (auto) Absolute Nucleated RBC Band Neutrophils % Nucleated RBC % Platelet Estimate % Immature Plt Fraction Ovalocytes [place] Cells Schistocytes APTT 60.8 H Sodium Potassium Chloride Carbon Dioxide Anion Gap BUN Creatinine Estim Creat Clear Calc Estimated GFR Glucose POC Capillary Glucose 123 H 101 Calcium Phosphorus Magnesium Total Bilirubin AST ALT Alkaline Phosphatase Total Protein Albumin 10/18/24 10/18/24 10/18/24 17:24 17:49 20:04 WBC RBC Hgb Hct MCV MCH MCHC RDW Plt Count MPV Immature Gran % (Auto) Neut % (Auto) Lymph % (Auto) [place] % (Auto) Eos % (Auto) Baso % (Auto) Lymph # (Auto) [place] # (Auto) Eos # (Auto) Baso # (Auto) Abs Immat Gran (auto) Absolute Neuts (auto) Absolute Nucleated RBC Band Neutrophils % Nucleated RBC % Platelet Estimate % Immature Plt Fraction Ovalocytes [place] Cells Schistocytes APTT 27.2 Sodium Potassium Chloride Carbon Dioxide Anion Gap BUN Creatinine Estim Creat Clear Calc Estimated GFR Glucose POC Capillary Glucose 138 H 143 H Calcium Phosphorus Magnesium Total Bilirubin AST ALT Alkaline Phosphatase Total Protein Albumin 10/18/24 10/19/24 10/19/24 23:59 01:13 04:20 WBC 9.4 RBC 3.83 L Hgb 12.0 L Hct 36.5 L MCV 95.3 MCH 31.3 MCHC 32.9 RDW 17.5 H Plt Count 115 L MPV 10.7 H Immature Gran % (Auto) 0.5 Neut % (Auto) 82.9 H Lymph % (Auto) 4.7 L [place] % (Auto) 11.8 H Eos % (Auto) 0.0 Baso % (Auto) 0.1 L Lymph # (Auto) 0.44 L [place] # (Auto) 1.1 H Eos # (Auto) 0.0 Baso # (Auto) 0.0 Abs Immat Gran (auto) 0.05 H Absolute Neuts (auto) 7.8 H Absolute Nucleated RBC 0.000 Band Neutrophils % Not Reportable Nucleated RBC % 0.0 Platelet Estimate Decreased % Immature Plt Fraction 3.7 Ovalocytes 1+ [place] Cells 1+ Schistocytes Rare APTT > 200.0 H* Sodium 135 L Potassium 4.7 Chloride 93 L Carbon Dioxide 23 Anion Gap 19 H BUN 76 H D Creatinine 4.88 H Estim Creat Clear Calc 11 Estimated GFR 11 L Glucose 201 H POC Capillary Glucose 184 H Calcium 7.5 L Phosphorus 4.6 H Magnesium 2.3 Total Bilirubin 2.3 H AST 31 ALT 18 Alkaline Phosphatase 73 Total Protein 7.0 Albumin 3.5 Quality VTE Prophylaxis VTE prophylaxis: mechanical ordered
[2024-10-19] MEDS: NEOMYCIN/POLYMYXIN/BACITRACIN OINTMENT 15 GM TUBE 1 APPLIC TOPICAL (08:35)
[2024-10-19] MEDS: PANTOPRAZOLE SODIUM IV 40 MG VIAL IV PUSH (08:35)
[2024-10-19 08:39] LABS: Glucose Point of Care 199 mg/dl (65-105)
[2024-10-19 09:18] LABS: Partial Thromboplastin Time 135.1 Seconds (22.3-36.8)
[2024-10-19] MEDS: HEPARIN SOD/D5W 100 UNITS/ML 25,000 UNITS/250 ML BAG 13 UNITS IV CONT (11:06)
--- NOTE | 2024-10-19 11:28 | PCNFU ---
Nutrition Follow-Up Complete: Inadequate oral intake related to swallowing difficulties as evidenced by need for MBSS Goal: Safe textures for patient needs Diet orders Goal not met a this time. New goal: Meet estimated nutritional needs. Pt current nutrition is NPO. Last recorded weight is 89.3 kg, down from 103.6 kg. Dialysis pt. Bowel Motility: Last reported BM 10/12 Labs Reviewed: Glu 201, Cr 4.88, NA 135, Hct 36.5, Hgb 12.0 Meds Noted:Miralax, Protonix, NovoLog, Rocephin, Lantus Skin: WNL Additional Notes: Plans for dialysis today. Patient failed MBS 10/18, plans to place a Dobbhoff today for nutrition. Tube feedings recommendations: Nepro at 50 ml/hr. Flush 30 ml q 4 hours. Tube feedings providing 1980 kcal/89 gm protein/800 ml water. Will continue to monitor. Monitoring intakes, weights, labs, swallowing evaluation, diet orders Following daily in rounds, reassess every Friday and Friday.
[2024-10-19] MEDS: MIDODRINE HCL 10 MG TABLET PO ×2 (13:07→17:31)
[2024-10-19] MEDS: SEVELAMER CARBONATE 0.8 GM ORAL POWDER PACKET 1.6 GM BY MOUTH ×2 (13:07→17:30)
[2024-10-19 13:28] LABS: Glucose Point of Care 242 mg/dl (65-105)
[2024-10-19 16:43] LABS: Glucose Point of Care 227 mg/dl (65-105)
[2024-10-19 17:01] LABS: Partial Thromboplastin Time 102.8 Seconds (22.3-36.8)
--- NOTE | 2024-10-19 17:38 | P.PNIM_ITS ---
Progress Note: A&P Assessment and Plan (1) Sepsis: Code(s): A41.9 - Sepsis, unspecified organism Status: Acute (2) Influenza: Code(s): J11.1 - Influenza due to unidentified influenza virus with other respiratory manifestations Status: Acute (3) Pneumonia: Code(s): J18.9 - Pneumonia, unspecified organism Status: Acute (4) Altered mental status: Code(s): R41.82 - Altered mental status, unspecified Status: Acute (5) End-stage renal disease on hemodialysis: Code(s): N18.6 - End stage renal disease; Z99.2 - Dependence on renal dialysis Status: Acute (6) Type 2 diabetes mellitus with diabetic neuropathy: Qualifiers: Diabetes mellitus terminal carman insulin use: without terminal carman use Qualified Code(s): E11.40 - Type 2 diabetes mellitus with diabetic neuropathy, unspecified Code(s): E11.40 - Type 2 diabetes mellitus with diabetic neuropathy, unspecified Status: Chronic Plan The patient presented to the emergency department for evaluation of altered mental status following dialysis as detailed in HPI. Labs, imaging, EKG, and all reports were personally reviewed. He meets sepsis criteria with hypotension, low-grade fever, bandemia, lactic acidosis, and altered mental status in the setting of infection. He remained hypotensive following a 1.5 L normal saline bolus (more fluids were not given due to his end-stage renal disease) and he has been started on vasopressors with a target MAP of at least 65. He tested positive for influenza A and chest x-ray shows findings of possible pneumonia for which he has been started on oseltamivir and azithromycin, ceftriaxone, and vancomycin. MRSA nasal screen pending. Sputum culture ordered. There were no reports of obvious focal deficits on exam in the ED and his altered mental status may very well be related to sepsis, influenza, and hypotension. Brain CT was without acute findings. Initiate sliding scale insulin, Accu-Cheks, and hypoglycemic protocol. He will be due for dialysis on Friday. His medications will be reviewed and resumed as appropriate. Findings and treatment plan were discussed with the patient's . Questions were solicited and answered to satisfaction. The patient's medical management will be taken over by the hospitalist team in a.m. patient presented with hypotension and confusion, patient was intubated and on ventilator, patient is receiving IVF and on pressor, discussed with interface control officer patient blood pressure is improving and his off pressors, patient is found to have Influenza A treated with Tamiflu patient's and son are present in the room, on 10/13 patient had ROBERT there is no evidence endocarditis, patient is clinically improving and discussed with interface control officer plan give weaning trial, on 10/16 patient was extubated and tolerating, failed bedside swallow study today, will have MBS tomorrow, patient still remains on pressors, patient and son are present, patient is seen by interface control officer and further recommendation to follow. patient presented with hypotension and confusion, patient was intubated and on ventilator, patient is receiving IVF and on pressor, discussed with interface control officer patient blood pressure is improving and his off pressors, patient is found to have Influenza A treated with Tamiflu patient's and son are present in the room, on 10/13 patient had ROBERT there is no evidence endocarditis, patient is clinically improving and discussed with interface control officer plan give weaning trial, on 10/16 patient was extubated and tolerating,on 10/17 failed bedside swallow study, patient had MBS on 10/18 and failed, Dobbhoff was placed by IR, feeding is not started, patient is having hemodialysis today plan is to remove 3 L, patient seen by interface control officer and school cafeteria head cook and appreciate Subjective Date/time seen: 10/19/24 17:38 Interval history: Altered mental status. H&P-Narrative: This is an 84-year-old male with end-stage renal disease on hemodialysis, congestive heart failure, pulmonary hypertension, type 2 diabetes mellitus, atrial fibrillation on anticoagulation, hypertension, chronic anemia, and other comorbidities who presented to the emergency department via EMS for evaluation of altered mental status after dialysis. He was intubated in the emergency department and the following history is obtained from the patient's as well as review of his electronic medical records. He went to dialysis at 05:00 and completed a session. His that time he has reportedly been increasingly confused, mumbling to himself and not making any sense. In the ED his only complaint was that of not feeling well but he did not elaborate. reports that he had a bit of a cough yesterday which she believes was nonproductive. There were no reports of fever, cold and flu symptoms, vomiting, or diarrhea. In the ED: Vital signs on arrival include a temperature of 99.8?, blood pressure 72/37, pulse 87, respiratory 22, SpO2 95%. Labs were significant for WBC count of 7.9 with 10 bands noted on manual differential, sodium 136, chloride 92, carbon dioxide 34, BUN 26, creatinine 3.68, lactic acid 2.9, calcium 7.9, total bilirubin 2.1. He tested positive for influenza A. Chest x-ray showed bilateral social pneumonitis versus pulmonary edema. Blood pressure continue to drift down words and he was given a 1500 mL bolus of normal saline without much improvement. The decision was made to put in the central line and start the patient on vasopressors however the patient had difficulties lying still for central line placement and he was sedated and eventually intubated and he is being admitted to the ICU in this setting with hypotension, influenza, pneumonia, and altered mental status. patient presented with hypotension and confusion, patient was intubated and on ventilator, patient is receiving IVF and on pressor, discussed with interface control officer patient blood pressure is improving and his off pressors, patient is found to have Influenza A treated with Tamiflu patient's and son are present in the room, on 10/13 patient had ROBERT there is no evidence endocarditis, patient is clinically improving and discussed with interface control officer plan give weaning trial, on 10/16 patient was extubated and tolerating,on 10/17 failed bedside swallow study, patient had MBS on 10/18 and failed, Dobbhoff was placed by IR, feeding is not started, patient is having hemodialysis today plan is to remove 3 L, patient seen by interface control officer and school cafeteria head cook and appreciate Review of Systems Review of Systems: Unable to be obtained given current clinical condition. All systems reviewed & are unremarkable except as noted in HPI and below ROS unobtainable: Yes unobtainable due to endotracheal tube, unobtainable due to medical condition and unobtainable due to mental status Exam Narrative: Patient is comfortable, NAD HEENT: clear LUNGS:CTA HEART: RR S1S2 ABD: BS+, Soft and nontender Lower extremities: no edema SKIN: nonjaundiced Neuro: still somewhat sedated Objective Data Vital Signs Vital Signs: Vital Signs - 24 hr 10/18/24 18:00 10/18/24 18:00 10/18/24 18:00 Temperature 37.1 C Pulse Rate 74 75 74 Respiratory Rate 20 Blood Pressure 94/55 L 94/55 L Pulse Oximetry 96 Oxygen Delivery Oxygen Flow Rate 10/18/24 20:00 10/18/24 20:00 10/18/24 20:00 Temperature 36.8 C Pulse Rate 78 70 78 Respiratory Rate 18 17 Blood Pressure 100/53 L 100/53 L Pulse Oximetry 97 97 Oxygen Delivery Nasal Cannula Oxygen Flow Rate 2 10/18/24 20:00 10/18/24 20:42 10/18/24 20:52 Temperature Pulse Rate 78 74 Respiratory Rate 18 Blood Pressure Pulse Oximetry 97 Oxygen Delivery Nasal Cannula Oxygen Flow Rate 1 10/18/24 20:59 10/18/24 22:00 10/18/24 22:00 Temperature Pulse Rate 70 70 76 Respiratory Rate 18 18 Blood Pressure 91/54 L Pulse Oximetry 97 Oxygen Delivery Oxygen Flow Rate 10/18/24 22:00 10/18/24 23:00 10/18/24 23:28 Temperature Pulse Rate 72 77 71 Respiratory Rate 19 Blood Pressure 91/51 L 102/58 L Pulse Oximetry 98 Oxygen Delivery Nasal Cannula Oxygen Flow Rate 1 10/19/24 00:00 10/19/24 00:00 10/19/24 00:01 Temperature 37.0 C Pulse Rate 76 76 76 Respiratory Rate 16 Blood Pressure 94/54 L 94/54 L Pulse Oximetry 98 Oxygen Delivery Oxygen Flow Rate 10/19/24 01:45 10/19/24 01:51 10/19/24 02:00 Temperature Pulse Rate 76 73 76 Respiratory Rate 18 Blood Pressure 84/53 L Pulse Oximetry Oxygen Delivery Oxygen Flow Rate 10/19/24 02:00 10/19/24 02:00 10/19/24 02:01 Temperature Pulse Rate 76 76 73 Respiratory Rate 15 18 Blood Pressure 92/53 L 92/53 L Pulse Oximetry 100 Oxygen Delivery Oxygen Flow Rate 10/19/24 02:10 10/19/24 02:10 10/19/24 03:00 Temperature Pulse Rate 70 70 72 Respiratory Rate Blood Pressure 92/53 L 92/53 L 89/60 L Pulse Oximetry Oxygen Delivery Oxygen Flow Rate 10/19/24 03:15 10/19/24 03:38 10/19/24 04:00 Temperature 36.9 C Pulse Rate 70 70 67 Respiratory Rate 18 17 Blood Pressure 97/55 L 89/52 L Pulse Oximetry 98 98 Oxygen Delivery Nasal Cannula Oxygen Flow Rate 1 10/19/24 04:00 10/19/24 04:00 10/19/24 04:30 Temperature Pulse Rate 70 69 78 Respiratory Rate Blood Pressure 89/52 L 109/59 L Pulse Oximetry Oxygen Delivery Oxygen Flow Rate 10/19/24 05:45 10/19/24 06:00 10/19/24 06:00 Temperature Pulse Rate 72 79 78 Respiratory Rate 20 Blood Pressure 108/59 L 99/64 L Pulse Oximetry 97 Oxygen Delivery Oxygen Flow Rate 10/19/24 06:00 10/19/24 06:15 10/19/24 06:30 Temperature Pulse Rate 73 73 75 Respiratory Rate Blood Pressure 99/64 L 107/62 100/59 L Pulse Oximetry Oxygen Delivery Oxygen Flow Rate 10/19/24 07:15 10/19/24 08:00 10/19/24 08:00 Temperature Pulse Rate 75 70 Respiratory Rate 20 Blood Pressure 94/57 L Pulse Oximetry 97 Oxygen Delivery Nasal Cannula Oxygen Flow Rate 1 10/19/24 08:00 10/19/24 08:00 10/19/24 08:00 Temperature 36.8 C Pulse Rate 72 72 Respiratory Rate 19 Blood Pressure 102/63 94/61 L Pulse Oximetry 98 98 Oxygen Delivery Nasal Cannula Oxygen Flow Rate 1 10/19/24 08:00 10/19/24 08:18 10/19/24 08:18 Temperature Pulse Rate 70 74 Respiratory Rate 20 Blood Pressure Pulse Oximetry 96 Oxygen Delivery Room Air Oxygen Flow Rate 10/19/24 09:22 10/19/24 10:00 10/19/24 10:00 Temperature Pulse Rate 72 76 77 Respiratory Rate Blood Pressure 89/51 L 95/55 L Pulse Oximetry Oxygen Delivery Oxygen Flow Rate 10/19/24 10:00 10/19/24 12:00 10/19/24 12:00 Temperature 36.9 C Pulse Rate 77 78 Respiratory Rate 18 Blood Pressure 92/53 L 99/62 L Pulse Oximetry 96 98 Oxygen Delivery Room Air Oxygen Flow Rate 10/19/24 12:00 10/19/24 12:00 10/19/24 14:00 Temperature 37.0 C Pulse Rate 72 72 75 Respiratory Rate 18 Blood Pressure 96/59 L Pulse Oximetry 98 Oxygen Delivery Oxygen Flow Rate 10/19/24 14:00 10/19/24 14:00 10/19/24 14:15 Temperature 36.5 C 36.5 C Pulse Rate 75 76 74 Respiratory Rate 18 20 Blood Pressure 90/56 L 90/56 L 93/57 L Pulse Oximetry 96 97 Oxygen Delivery Oxygen Flow Rate 10/19/24 14:26 10/19/24 14:41 10/19/24 14:45 Temperature Pulse Rate 67 68 68 Respiratory Rate 20 Blood Pressure 91/61 L 94/54 L Pulse Oximetry Oxygen Delivery Oxygen Flow Rate 10/19/24 14:50 10/19/24 15:00 10/19/24 15:15 Temperature Pulse Rate 62 74 69 Respiratory Rate 20 Blood Pressure 96/55 L 90/51 L Pulse Oximetry Oxygen Delivery Oxygen Flow Rate 10/19/24 15:30 10/19/24 15:45 10/19/24 15:50 Temperature Pulse Rate 73 78 64 Respiratory Rate Blood Pressure 88/52 L 83/60 L 83/60 L Pulse Oximetry Oxygen Delivery Oxygen Flow Rate 10/19/24 16:00 10/19/24 16:00 10/19/24 16:00 Temperature Pulse Rate 68 77 Respiratory Rate Blood Pressure 94/58 L Pulse Oximetry 97 Oxygen Delivery Room Air Oxygen Flow Rate 10/19/24 16:00 10/19/24 16:00 10/19/24 16:15 Temperature 36.6 C Pulse Rate 77 73 77 Respiratory Rate 16 Blood Pressure 94/58 L 94/58 L 93/53 L Pulse Oximetry 97 Oxygen Delivery Oxygen Flow Rate 10/19/24 16:30 10/19/24 16:45 10/19/24 17:00 Temperature Pulse Rate 67 73 71 Respiratory Rate Blood Pressure 94/54 L 86/51 L 96/57 L Pulse Oximetry Oxygen Delivery Oxygen Flow Rate 10/19/24 17:15 10/19/24 17:26 Temperature Pulse Rate 73 70 Respiratory Rate Blood Pressure 93/56 L 88/58 L Pulse Oximetry Oxygen Delivery Oxygen Flow Rate Intake/Output Intake/Output: Intake & Output 10/16/24 10/17/24 10/18/24 10/19/24 23:59 23:59 23:59 23:59 Intake Total 1896.4 599.8 721.8 454.5 Output Total 100 0 2600 0 Balance 1796.4 599.8 -1878.2 454.5 Meds/Results Medications: Active Medications Generic Name Dose Route Start Last Admin Trade Name Freq PRN Reason Stop Dose Admin Acetaminophen 650 mg 10/08/24 20:49 Acetaminophen 650 Mg Suppository RECTAL Q6H PRN Mild Pain (1-3) or Fever Albuterol/Ipratropium 3 ml 10/09/24 14:00 10/19/24 14:41 Ipratropium 0.5 Mg/Albuterol Sulfate 2.5 Mg Ampul.Neb 3 Ml INHALATION 3 ml Q6HRT CESAR Administration Allopurinol 100 mg 10/09/24 08:00 10/19/24 08:33 Allopurinol 100 Mg Tablet PO Not Given DAILY@0800 CESAR Apixaban 2.5 mg 10/09/24 09:00 10/18/24 20:42 Apixaban 2.5 Mg Tablet PO Not Given Q12HR CESAR Atorvastatin Calcium 10 mg 10/09/24 09:00 10/19/24 08:34 Atorvastatin 10 Mg Tablet PO Not Given DAILY CESAR Budesonide 0.5 mg 10/09/24 20:00 10/19/24 07:56 Budesonide Respule Neb 0.5 Mg/2 Ml Amp INHALATION 0.5 mg Q12HRT CESAR Administration Dextrose 12.5 gm 10/08/24 22:06 10/17/24 09:53 Dextrose 50% 25 Gm/50 Ml Syringe IV PUSH 12.5 gm PRN PRN Administration Hypoglycemia Protocol Glucagon 1 mg 10/08/24 22:06 Glucagon For Inj 1 Mg Vial IM PRN PRN Hypoglycemia Protocol Glucose 15 gm 10/08/24 22:06 Glucose Oral Gel 15 Gm Of Glucse In 37.5 Gm Tube PO PRN PRN Hypoglycemia Protocol Heparin Sodium (Porcine) 6,000 units 10/17/24 21:36 10/18/24 18:32 Heparin Sodium 5,000 Units/Ml Vial IV PUSH 6,000 units PRN PRN Administration aPTT less than 55 seconds Heparin Sodium (Porcine) 3,000 units 10/17/24 21:36 10/18/24 11:35 Heparin Sodium 5,000 Units/Ml Vial IV PUSH 3,000 units PRN PRN Administration aPTT 55 - 70 seconds Hydrocortisone Sodium Succinate 50 mg 10/17/24 18:00 10/19/24 17:31 Hydrocortisone Sodium Succinate 100 Mg/2 Ml Vial IV PUSH 10/20/24 17:59 50 mg Q12H CESAR Administration Hydrocortisone Sodium Succinate 50 mg 10/21/24 09:00 Hydrocortisone Sodium Succinate 100 Mg/2 Ml Vial IV PUSH 10/22/24 09:01 DAILY CESAR Dextrose 1,000 mls @ 100 mls/hr 10/08/24 22:06 Dextrose 5% 1,000 Ml IVPB PRN PRN Hypoglycemia Protocol Norepinephrine Bitartrate 8 mg in 250 mls @ 13.125 mls/hr 10/13/24 05:05 10/19/24 16:00 Levophed 8 Mg/D5w 250 Ml IV CONT 7 mcg/min .Q19H3M CESAR 13.13 mls/hr Titration Protocol 7 MCG/MIN Albumin Human 50 mls @ 999 mls/hr 10/14/24 06:24 10/15/24 17:30 Albutein IVPB 11/13/24 06:23 Infused Q10M PRN Infusion HYPOTENSION Heparin Sodium/Dextrose 25,000 units in 250 mls @ 13 mls/hr 10/17/24 22:00 10/19/24 17:11 Heparin Sodium/D5w 100 Units/Ml IV CONT 10/19/24 21:00 1,300 units/hr .[id number] CESAR 13 mls/hr Titration Protocol 1,300 UNITS/HR Albumin Human 50 mls @ 999 mls/hr 10/19/24 08:21 Albutein IVPB 10/20/24 08:20 Q10M PRN HYPOTENSION Insulin Aspart 4 - 8 units 10/11/24 12:00 10/19/24 17:31 Insulin Aspart (*Bkc) 100 Units/Ml SUB-Q 4 units Q4H CESAR Administration Protocol Midodrine 10 mg 10/15/24 13:00 10/19/24 17:31 Midodrine Hcl 10 Mg Tablet PO 10 mg TID CESAR Administration Multi-Ingred Cream/Lotion/Oil/Oint 1 applic 10/10/24 09:00 10/19/24 08:35 Mineral Oil/White Petrolatum Ointment EACH EYE Not Given Q12HR CESAR Neomycin/Polymyxin/Bacitracin 1 applic 10/17/24 09:00 10/19/24 08:35 Neomycin/Polymyxin/Bacitracin Ointment 15 Gm Tube TOPICAL 1 applic QAM CESAR Administration Pantoprazole Sodium 40 mg 10/09/24 13:45 10/19/24 08:35 Pantoprazole Sodium Iv 40 Mg Vial IV PUSH 40 mg QAM CESAR Administration Polyethylene Glycol 17 gm 10/15/24 10:25 10/19/24 08:35 Polyethylene Glycol 3350 17 Gm Powd.Pack PO Not Given QAM CESAR Fluticasone/Salmeterol 2 puff 10/09/24 08:00 10/09/24 09:26 Fluticasone/Salmeterol 115-21 Mcg Inhaler 1 Puff INHALATION Not Given Q12HRT CESAR Sevelamer Carbonate 1.6 gm 10/14/24 08:45 10/19/24 17:30 Sevelamer Carbonate 0.8 Gm Oral Powder Packet BY MOUTH 1.6 gm TIDWM CESAR Administration Sodium Chloride 10 ml 10/09/24 14:00 10/19/24 13:08 Central Line Flush IV PUSH 10 ml Q8HR CESAR Administration Sodium Chloride 20 ml 10/09/24 06:24 10/18/24 05:38 Central Line Flush IV PUSH 20 ml PRN PRN Administration after blood draws Radiology Results: ITS Impressions Pelvis X-Ray 10/08/24 22:22 IMPRESSION: As above. Head CT 10/08/24 23:18 IMPRESSION: No acute intracranial findings. Chest CT 10/08/24 23:27 IMPRESSION: 1. Interstitial thickening in the lower lobes which may indicate pneumonitis. Edema is less likely. 2. Cardiomegaly. 3. Cholelithiasis 4. Splenic cysts unchanged. Abdomen X-Ray 10/13/24 15:22 IMPRESSION: Nasogastric tube in good position and ready for immediate use. Modified Barium Swallow 10/18/24 17:03 IMPRESSION: Oropharyngeal dysphagia including laryngeal penetration with aspiration. Please correlate with speech pathologist findings and specific feeding recommendations. Chest X-Ray 10/19/24 06:18 Impression: Moderate pulmonary edema pattern with small right pleural effusion. Correlate clinically for pneumonia. Labs Labs: Laboratory Results - last 24 hr 10/18/24 10/18/24 10/18/24 17:49 20:04 23:59 WBC RBC Hgb Hct MCV MCH MCHC RDW Plt Count MPV Immature Gran % (Auto) Neut % (Auto) Lymph % (Auto) [place] % (Auto) Eos % (Auto) Baso % (Auto) Lymph # (Auto) [place] # (Auto) Eos # (Auto) Baso # (Auto) Abs Immat Gran (auto) Absolute Neuts (auto) Absolute Nucleated RBC Band Neutrophils % Nucleated RBC % Platelet Estimate % Immature Plt Fraction Ovalocytes [place] Cells Schistocytes APTT 27.2 Sodium Potassium Chloride Carbon Dioxide Anion Gap BUN Creatinine Estim Creat Clear Calc Estimated GFR Glucose POC Capillary Glucose 143 H 184 H Calcium Phosphorus Magnesium Total Bilirubin AST ALT Alkaline Phosphatase Total Protein Albumin 10/19/24 10/19/24 10/19/24 01:13 04:20 08:16 WBC 9.4 RBC 3.83 L Hgb 12.0 L Hct 36.5 L MCV 95.3 MCH 31.3 MCHC 32.9 RDW 17.5 H Plt Count 115 L MPV 10.7 H Immature Gran % (Auto) 0.5 Neut % (Auto) 82.9 H Lymph % (Auto) 4.7 L [place] % (Auto) 11.8 H Eos % (Auto) 0.0 Baso % (Auto) 0.1 L Lymph # (Auto) 0.44 L [place] # (Auto) 1.1 H Eos # (Auto) 0.0 Baso # (Auto) 0.0 Abs Immat Gran (auto) 0.05 H Absolute Neuts (auto) 7.8 H Absolute Nucleated RBC 0.000 Band Neutrophils % Not Reportable Nucleated RBC % 0.0 Platelet Estimate Decreased % Immature Plt Fraction 3.7 Ovalocytes 1+ [place] Cells 1+ Schistocytes Rare APTT > 200.0 H* Sodium 135 L Potassium 4.7 Chloride 93 L Carbon Dioxide 23 Anion Gap 19 H BUN 76 H D Creatinine 4.88 H Estim Creat Clear Calc 11 Estimated GFR 11 L Glucose 201 H POC Capillary Glucose 199 H Calcium 7.5 L Phosphorus 4.6 H Magnesium 2.3 Total Bilirubin 2.3 H AST 31 ALT 18 Alkaline Phosphatase 73 Total Protein 7.0 Albumin 3.5 10/19/24 10/19/24 10/19/24 09:01 13:09 16:39 WBC RBC Hgb Hct MCV MCH MCHC RDW Plt Count MPV Immature Gran % (Auto) Neut % (Auto) Lymph % (Auto) [place] % (Auto) Eos % (Auto) Baso % (Auto) Lymph # (Auto) [place] # (Auto) Eos # (Auto) Baso # (Auto) Abs Immat Gran (auto) Absolute Neuts (auto) Absolute Nucleated RBC Band Neutrophils % Nucleated RBC % Platelet Estimate % Immature Plt Fraction Ovalocytes [place] Cells Schistocytes APTT 135.1 H 102.8 H Sodium Potassium Chloride Carbon Dioxide Anion Gap BUN Creatinine Estim Creat Clear Calc Estimated GFR Glucose POC Capillary Glucose 242 H Calcium Phosphorus Magnesium Total Bilirubin AST ALT Alkaline Phosphatase Total Protein Albumin 10/19/24 16:40 WBC RBC Hgb Hct MCV MCH MCHC RDW Plt Count MPV Immature Gran % (Auto) Neut % (Auto) Lymph % (Auto) [place] % (Auto) Eos % (Auto) Baso % (Auto) Lymph # (Auto) [place] # (Auto) Eos # (Auto) Baso # (Auto) Abs Immat Gran (auto) Absolute Neuts (auto) Absolute Nucleated RBC Band Neutrophils % Nucleated RBC % Platelet Estimate % Immature Plt Fraction Ovalocytes [place] Cells Schistocytes APTT Sodium Potassium Chloride Carbon Dioxide Anion Gap BUN Creatinine Estim Creat Clear Calc Estimated GFR Glucose POC Capillary Glucose 227 H Calcium Phosphorus Magnesium Total Bilirubin AST ALT Alkaline Phosphatase Total Protein Albumin Quality VTE Prophylaxis VTE prophylaxis: mechanical ordered
[2024-10-19] MEDS: APIXABAN 2.5 MG TABLET PO (20:24)
[2024-10-19 21:49] LABS: Glucose Point of Care 233 mg/dl (65-105)
[2024-10-20] VITALS (54 sets, daily range): BP systolic 77–122; BP diastolic 49–70; PULSE 69–98; RESP 11–24; TEMP 36.4–37.9; O2SAT 92–100
[2024-10-20] MEDS: NOREPINEPHRINE 8 MG/D5W 250 ML 8 MG/250 ML BAG 11.25 MG IV CONT (00:01)
[2024-10-20 00:10] LABS: Glucose Point of Care 220 mg/dl (65-105)
[2024-10-20] MEDS: INSULIN ASPART (*BKC) 100 UNITS/ML SUB-Q ×3 (00:27→23:58)
[2024-10-20] MEDS: IPRATROPIUM 0.5 MG/ALBUTEROL SULFATE 2.5 MG AMPUL.NEB 3 ML INHALATION ×4 (01:28→20:03)
[2024-10-20 04:28] LABS: Basophils Percent Auto 0.1 % (0.2-1.2); Hematocrit 36.9 % (42.0-52.0); Hemoglobin 12.1 g/dL (14.0-18.0); Immature Granulocyte Absolute 0.06 K/mm3 (0.00-0.031); Immature Granulocyte Percent A 0.6 % (0-0.5); Lymphocytes Absolute Auto 0.52 K/mm3 (0.9-3.2); Lymphocytes Percent Auto 4.8 % (18.3-44.2); Mean Corpuscular HGB Conc 32.8 g/dl (32-36); Mean Corpuscular Volume 94.6 fl (80-100); Mean Platelet Volume 11.5 fl (7.4-10.4); Monocytes Absolute Auto 1.4 K/mm3 (0.1-0.6); Monocytes Percent Auto 12.5 % (2.6-8.5); Neutrophils Absolute Auto 8.9 K/mm3 (1.3-6.7); Platelet Count Result 138 k/mm3 (150-375); Red Cell Distribution Width 17.7 % (11.5-14.5); White Blood Count 10.9 K/mm3 (4.5-10.0)
[2024-10-20 04:36] LABS: Platelet Estimate Slightly Decreased (Adequate)
[2024-10-20 04:37] LABS: Band Neutrophils Percent 0 % (0-6); Burr Cells 1+; Ovalocytes 1+; Schistocytes None Seen; Target Cells 1+
[2024-10-20 04:44] LABS: Alanine Aminotransferase 19 U/L (6-50); Albumin Level 3.8 g/dL (3.5-5.1); Alkaline Phosphatase 88 U/L (38-126); Anion Gap 19 mmol/L (4-12); Aspartate Amino Transferase 31 U/L (17-59); Bilirubin,Total 1.8 mg/dL (0.2-1.3); Blood Urea Nitrogen 101 mg/dL (9-20); Calcium 7.7 mg/dL (8.4-10.2); Carbon Dioxide 24 mmol/L (22-30); Chloride 92 mmol/L (98-107); Glucose 164 mg/dL (65-110); Magnesium 2.5 mg/dL (1.6-2.3); Phosphorus 4.3 mg/dL (2.5-4.5); Potassium 4.8 mmol/L (3.4-5.0); Sodium 135 mmol/L (137-145)
[2024-10-20 05:02] LABS: Estimated CRCL calculation 9 ml/min; Estimated Glomerular Filt Rate 9
[2024-10-20] MEDS: CENTRAL LINE FLUSH 10 ML IV PUSH ×5 (05:51→21:22)
[2024-10-20] MEDS: HYDROCORTISONE SODIUM SUCCINATE 100 MG/2 ML VIAL 50 MG IV PUSH (05:51)
[2024-10-20] MEDS: APIXABAN 2.5 MG TABLET PO ×2 (07:51→21:18)
[2024-10-20] MEDS: MIDODRINE HCL 10 MG TABLET FEED TUBE ×3 (07:51→21:18)
[2024-10-20] MEDS: BUDESONIDE RESPULE NEB 0.5 MG/2 ML AMP INHALATION ×2 (08:22→20:03)
--- NOTE | 2024-10-20 09:31 | P.PNINT_ITS ---
Progress Note: A&P Assessment and Plan (1) Respiratory failure: Code(s): J96.90 - Respiratory failure, unspecified, unspecified whether with hypoxia or hypercapnia Status: Acute Assessment and Plan: Acute respiratory failure likely related to pneumonia, altered mental status, airway protection -10/08: Intubated -10/16: Extubated - continue bronchodilators and Pulmicort -chest x-ray reviewed, will have respiratory therapist encourage incentive spirometry, EzPAP -speech for bedside swallow evaluation, -10/18: Failed modified barium swallow -appreciate IR placing Dobbhoff tube, patient started on tube feeds and tolerating -PT/OT to continue to follow, up in chair, significant weakness (2) Septic shock: Code(s): A41.9 - Sepsis, unspecified organism; R65.21 - Severe sepsis with septic shock Status: Acute Assessment and Plan: Patient presented with altered mental status, hypotension, lactic acidosis -septic shock likely related to bacteremia, bilateral pneumonia along with influenza -status post azithromycin, ceftriaxone and vancomycin Remains off all antibiotics -10/08: Blood cultures growing strep mitis -10/10 repeat set of blood culture sent and negative till now -TTE and ROBERT are negative for evidence of valve vegetations -patient remains on Levophed but off of epinephrine and vasopressin, maintain SBP >90 mmHg. (patient's blood pressure is normally runs low according to his family) -weaning hydrocortisone -patient on midodrine, currently NPO after extubation, patient received above tube today, will restart midodrine after the 10/18: Still requiring Levophed, afebrile, WBC trending down. 10/18: Blood cultures negative x2 10/20: Levophed being weaned, increased midodrine to q.6 hours. (3) Bacteremia: Code(s): R78.81 - Bacteremia Status: Acute Assessment and Plan: 10/08: Blood cultures growing strep mitis group 10/10 repeat set of blood culture sent and negative till now -continue antibiotics as above TTE as below ROBERT negative for evidence of vegetation (4) Influenza A: Code(s): J10.1 - Influenza due to other identified influenza virus with other respiratory manifestations Status: Acute Assessment and Plan: Completed a course of renally dosed Tamiflu (5) Pneumonia: Code(s): J18.9 - Pneumonia, unspecified organism Status: Acute Assessment and Plan: Chest x-ray showed pneumonia, CT chest showed pneumonitis, -off all antibiotic (6) Altered mental status: Code(s): R41.82 - Altered mental status, unspecified Status: Acute Assessment and Plan: Currently intubated and sedated Head CT was negative for any acute changes at the time presentation (7) End-stage renal disease on hemodialysis: Code(s): N18.6 - End stage renal disease; Z99.2 - Dependence on renal dialysis Status: Acute Assessment and Plan: End-stage renal disease on dialysis (M, W, F) -dialysis per Nephrology. (8) Diabetes: Qualifiers: Diabetes mellitus type: type 2 Diabetes mellitus [facility] insulin use: without [facility] use Diabetes mellitus complication status: with kidney complications Diabetes mellitus complication detail: with chronic kidney disease Chronic kidney disease stage: on chronic dialysis Qualified Code(s): E11.22 - Type 2 diabetes mellitus with diabetic chronic kidney disease; N18.6 - End stage renal disease; Z99.2 - Dependence on renal dialysis Code(s): E11.9 - Type 2 diabetes mellitus without complications Status: Chronic Assessment and Plan: Continue current sliding scale and -Lantus discontinued as patient NPO (9) Atrial fibrillation: Code(s): I48.91 - Unspecified atrial fibrillation Status: Acute Assessment and Plan: Patient has a history of atrial fibrillation, remains in AFib, rate controlled -has been on apixaban, post extubation was started heparin infusion and apixaban was held as he did not have and OG/NG tube -patient failed his bedside swallow and modified barium swallow -10/19/2024 Dobbhoff tube was inserted by IR, apixaban was restarted and heparin infusion was discontinued Plan DVT prophylaxis: Restarted Eliquis on 10/19 after patient got his Dobbhoff tube placed, off heparin infusion Stress ulcer prophylaxis: Protonix Nutrition: Tube feeds through Dobbhoff tube. ( Patient failed bedside swallow evaluation and modified barium swallow) Code Status: Full code Critical Care Time Spent: 32 minutes Discussed with patient's son and spouse and updated them with patient's condition and plan of care. I answered all the questions Due to a high probability of clinically significant, life threatening deterioration, the patient required my highest level of preparedness to intervene emergently and I personally spent this critical care time directly and personally managing the patient. This critical care time included obtaining a history; examining the patient; pulse oximetry; ordering and review of studies; arranging urgent treatment with development of a management plan; evaluation of patient's response to treatment; frequent reassessment; and discussions with other providers. It was exclusive of separately billable procedures and treating other patients and teaching time. Please see Assessment and Plan section and the rest of the note for further information on patient assessment and treatment This dictation may have been done utilizing a voice recognition system. Attempts have been made to correct errors. However, there may be uncorrected grammatical, spelling, and recognitions errors present. Subjective Date/time seen: 10/20/24 09:31 Interval history: Reason for consult: Altered mental status, generalized weakness, hypotension, shock, acute respiratory failure, Gram-positive cocci in chains bacteremia, influenza A positive, MRSA screen positive 10/08: Intubated 10/16: Extubated 10/19: Double off tube inserted by IR 10/20/2024: Patient seen and examined the ICU, is on room air, with adequate O2 sats. Patient is awake, alert, able to give me one-word answers. Follows simple commands in all extremities, still continues to remain weak. Patient had dialysis yesterday with 3000 mL in fluid removed. Afebrile. Remains on Levophed at 3 mcg/min. Patient receiving tube feeds and tolerating via a Dobbhoff which was placed yesterday by Interventional Radiology. Patient denies any chest pain, shortness of breath, abdominal pain Review of Systems Review of Systems: All systems reviewed & are unremarkable except as noted in HPI and below Exam Narrative: General: Patient on room air, awake, in no acute distress HEENT:? Pupils equal and reactive bilaterally Neck:? Supple Respiratory:? Coarse breath sounds bilaterally, decreased at bases, no wheezing, adequate air entry Cardiac:? Irregularly irregular, rate controlled Abdomen:? Soft, nontender, nondistended, protuberant, hypoactive bowel sounds Extremities:? Bilateral lower extremity edema is improved significantly, palpable pedal pulses Neuro:? Patient is awake, alert, nods to questions, answers yes or no to questions. Follows simple commands and upper extremities but not in lower extremities, generalized weakness Skin:? Multiple bruising noted upper and lower extremities Psych:? Unable to assess at this time Objective Data Vital Signs Vital Signs: Vital Signs - 24 hr 10/19/24 10:00 10/19/24 10:00 10/19/24 10:00 Temperature 98.4 F Pulse Rate 76 77 77 Respiratory Rate 18 Blood Pressure 95/55 L 92/53 L Pulse Oximetry 96 Oxygen Delivery Oxygen Flow Rate Fraction of Inspired Oxygen 10/19/24 12:00 10/19/24 12:00 10/19/24 12:00 Temperature Pulse Rate 78 72 Respiratory Rate Blood Pressure 99/62 L Pulse Oximetry 98 Oxygen Delivery Room Air Oxygen Flow Rate Fraction of Inspired Oxygen 10/19/24 12:00 10/19/24 14:00 10/19/24 14:00 Temperature 98.6 F 97.7 F Pulse Rate 72 75 75 Respiratory Rate 18 18 Blood Pressure 96/59 L 90/56 L Pulse Oximetry 98 96 Oxygen Delivery Oxygen Flow Rate Fraction of Inspired Oxygen 10/19/24 14:00 10/19/24 14:15 10/19/24 14:26 Temperature 97.7 F Pulse Rate 76 74 67 Respiratory Rate 20 Blood Pressure 90/56 L 93/57 L 91/61 L Pulse Oximetry 97 Oxygen Delivery Oxygen Flow Rate Fraction of Inspired Oxygen 10/19/24 14:41 10/19/24 14:45 10/19/24 14:50 Temperature Pulse Rate 68 68 62 Respiratory Rate 20 20 Blood Pressure 94/54 L Pulse Oximetry Oxygen Delivery Oxygen Flow Rate Fraction of Inspired Oxygen 10/19/24 15:00 10/19/24 15:15 10/19/24 15:30 Temperature Pulse Rate 74 69 73 Respiratory Rate Blood Pressure 96/55 L 90/51 L 88/52 L Pulse Oximetry Oxygen Delivery Oxygen Flow Rate Fraction of Inspired Oxygen 10/19/24 15:45 10/19/24 15:50 10/19/24 16:00 Temperature Pulse Rate 78 64 68 Respiratory Rate Blood Pressure 83/60 L 83/60 L 94/58 L Pulse Oximetry Oxygen Delivery Oxygen Flow Rate Fraction of Inspired Oxygen 10/19/24 16:00 10/19/24 16:00 10/19/24 16:00 Temperature Pulse Rate 77 77 Respiratory Rate Blood Pressure 94/58 L Pulse Oximetry 97 Oxygen Delivery Room Air Oxygen Flow Rate Fraction of Inspired Oxygen 10/19/24 16:00 10/19/24 16:15 10/19/24 16:30 Temperature 97.8 F Pulse Rate 73 77 67 Respiratory Rate 16 Blood Pressure 94/58 L 93/53 L 94/54 L Pulse Oximetry 97 Oxygen Delivery Oxygen Flow Rate Fraction of Inspired Oxygen 10/19/24 16:45 10/19/24 17:00 10/19/24 17:15 Temperature Pulse Rate 73 71 73 Respiratory Rate Blood Pressure 86/51 L 96/57 L 93/56 L Pulse Oximetry Oxygen Delivery Oxygen Flow Rate Fraction of Inspired Oxygen 10/19/24 17:26 10/19/24 17:30 10/19/24 17:38 Temperature 97.8 F Pulse Rate 70 73 69 Respiratory Rate 15 Blood Pressure 88/58 L 91/56 L 94/61 L Pulse Oximetry 97 Oxygen Delivery Oxygen Flow Rate Fraction of Inspired Oxygen 10/19/24 18:00 10/19/24 18:00 10/19/24 18:07 Temperature Pulse Rate 65 65 65 Respiratory Rate 18 Blood Pressure 94/54 L 94/54 L Pulse Oximetry 98 Oxygen Delivery Oxygen Flow Rate Fraction of Inspired Oxygen 10/19/24 19:33 10/19/24 19:33 10/19/24 19:49 Temperature Pulse Rate 66 71 Respiratory Rate 16 18 Blood Pressure Pulse Oximetry 96 Oxygen Delivery Room Air Oxygen Flow Rate Fraction of Inspired Oxygen 21 10/19/24 20:00 10/19/24 20:00 10/19/24 20:00 Temperature 98.1 F Pulse Rate 71 68 68 Respiratory Rate 18 17 Blood Pressure 88/53 L Pulse Oximetry 96 94 Oxygen Delivery Room Air Oxygen Flow Rate Fraction of Inspired Oxygen 10/19/24 20:00 10/19/24 21:00 10/19/24 22:00 Temperature Pulse Rate 68 73 74 Respiratory Rate Blood Pressure 88/53 L 101/58 L Pulse Oximetry Oxygen Delivery Oxygen Flow Rate Fraction of Inspired Oxygen 10/19/24 22:00 10/19/24 22:01 10/19/24 22:30 Temperature Pulse Rate 76 78 74 Respiratory Rate 20 18 Blood Pressure 99/60 L 95/69 L Pulse Oximetry 96 95 Oxygen Delivery Oxygen Flow Rate Fraction of Inspired Oxygen 10/19/24 22:30 10/19/24 22:31 10/19/24 22:45 Temperature Pulse Rate 77 69 71 Respiratory Rate 20 13 Blood Pressure 95/59 L 98/60 L Pulse Oximetry 97 98 96 Oxygen Delivery Oxygen Flow Rate Fraction of Inspired Oxygen 10/19/24 23:00 10/19/24 23:30 10/19/24 23:31 Temperature Pulse Rate 71 71 74 Respiratory Rate 12 20 17 Blood Pressure 105/55 L 92/54 L Pulse Oximetry 96 96 97 Oxygen Delivery Oxygen Flow Rate Fraction of Inspired Oxygen 10/19/24 23:45 10/20/24 00:00 10/20/24 00:00 Temperature Pulse Rate 75 72 78 Respiratory Rate 19 20 Blood Pressure 95/53 L Pulse Oximetry 95 97 Oxygen Delivery Room Air Oxygen Flow Rate Fraction of Inspired Oxygen 10/20/24 00:00 10/20/24 00:01 10/20/24 00:01 Temperature 98.3 F Pulse Rate 78 71 71 Respiratory Rate 15 Blood Pressure 92/51 L 95/61 L 95/61 L Pulse Oximetry 96 Oxygen Delivery Oxygen Flow Rate Fraction of Inspired Oxygen 10/20/24 00:01 10/20/24 00:30 10/20/24 00:45 Temperature Pulse Rate 78 74 76 Respiratory Rate 19 11 L Blood Pressure 98/51 L 95/57 L 90/56 L Pulse Oximetry 95 97 Oxygen Delivery Oxygen Flow Rate Fraction of Inspired Oxygen 10/20/24 01:00 10/20/24 01:01 10/20/24 01:28 Temperature Pulse Rate 74 77 72 Respiratory Rate 19 19 18 Blood Pressure 91/58 L Pulse Oximetry 95 95 Oxygen Delivery Oxygen Flow Rate Fraction of Inspired Oxygen 10/20/24 01:30 10/20/24 01:39 10/20/24 02:00 Temperature Pulse Rate 74 76 78 Respiratory Rate 19 18 Blood Pressure 98/61 L 97/54 L Pulse Oximetry 100 Oxygen Delivery Oxygen Flow Rate Fraction of Inspired Oxygen 10/20/24 02:00 10/20/24 02:00 10/20/24 03:45 Temperature Pulse Rate 78 75 74 Respiratory Rate 18 Blood Pressure 97/54 L 97/58 L Pulse Oximetry 96 Oxygen Delivery Oxygen Flow Rate Fraction of Inspired Oxygen 10/20/24 04:00 10/20/24 04:00 10/20/24 04:00 Temperature 97.8 F Pulse Rate 74 74 74 Respiratory Rate 15 17 Blood Pressure 91/61 L Pulse Oximetry 97 97 Oxygen Delivery Room Air Oxygen Flow Rate Fraction of Inspired Oxygen 10/20/24 04:00 10/20/24 05:30 10/20/24 06:00 Temperature Pulse Rate 74 79 75 Respiratory Rate Blood Pressure 91/61 L 96/61 L Pulse Oximetry Oxygen Delivery Oxygen Flow Rate Fraction of Inspired Oxygen 10/20/24 06:00 10/20/24 06:00 10/20/24 08:00 Temperature Pulse Rate 75 78 77 Respiratory Rate 17 Blood Pressure 97/62 L 97/62 L 96/56 L Pulse Oximetry 98 Oxygen Delivery Oxygen Flow Rate Fraction of Inspired Oxygen 10/20/24 08:00 10/20/24 08:00 10/20/24 08:00 Temperature 99.4 F Pulse Rate 80 78 Respiratory Rate 21 H Blood Pressure 96/56 L Pulse Oximetry 95 Oxygen Delivery Room Air Oxygen Flow Rate Fraction of Inspired Oxygen 10/20/24 08:06 10/20/24 08:06 10/20/24 08:22 Temperature 97.6 F Pulse Rate 78 Respiratory Rate 20 Blood Pressure 100/53 L Pulse Oximetry 97 Oxygen Delivery Room Air Oxygen Flow Rate 1 Fraction of Inspired Oxygen 21 10/20/24 08:22 10/20/24 08:25 10/20/24 08:30 Temperature Pulse Rate 75 74 78 Respiratory Rate 22 H Blood Pressure 106/70 104/57 L Pulse Oximetry Oxygen Delivery Oxygen Flow Rate Fraction of Inspired Oxygen 10/20/24 08:35 10/20/24 08:45 10/20/24 09:00 Temperature Pulse Rate 76 72 90 Respiratory Rate 20 Blood Pressure 94/57 L 86/58 L Pulse Oximetry Oxygen Delivery Oxygen Flow Rate Fraction of Inspired Oxygen 10/20/24 09:15 Temperature Pulse Rate 86 Respiratory Rate Blood Pressure 92/53 L Pulse Oximetry Oxygen Delivery Oxygen Flow Rate Fraction of Inspired Oxygen Intake/Output Intake/Output: Intake & Output 10/17/24 10/18/24 10/19/24 10/20/24 23:59 23:59 23:59 23:59 Intake Total 599.8 721.8 689.3 492.4 Output Total 0 2600 3000 0 Balance 599.8 -1878.2 -2310.7 492.4 Meds/Results Medications: Active Medications Generic Name Dose Route Start Last Admin Trade Name Freq PRN Reason Stop Dose Admin Acetaminophen 650 mg 10/08/24 20:49 Acetaminophen 650 Mg Suppository RECTAL Q6H PRN Mild Pain (1-3) or Fever Albuterol/Ipratropium 3 ml 10/09/24 14:00 10/20/24 08:22 Ipratropium 0.5 Mg/Albuterol Sulfate 2.5 Mg Ampul.Neb 3 Ml INHALATION 3 ml Q6HRT CESAR Administration Allopurinol 100 mg 10/09/24 08:00 10/19/24 08:33 Allopurinol 100 Mg Tablet PO Not Given DAILY@0800 CESAR Apixaban 2.5 mg 10/09/24 09:00 10/20/24 07:51 Apixaban 2.5 Mg Tablet PO 2.5 mg Q12HR CESAR Administration Atorvastatin Calcium 10 mg 10/09/24 09:00 10/19/24 08:34 Atorvastatin 10 Mg Tablet PO Not Given DAILY CSEAR Budesonide 0.5 mg 10/09/24 20:00 10/20/24 08:22 Budesonide Respule Neb 0.5 Mg/2 Ml Amp INHALATION 0.5 mg Q12HRT CESAR Administration Dextrose 12.5 gm 10/08/24 22:06 10/17/24 09:53 Dextrose 50% 25 Gm/50 Ml Syringe IV PUSH 12.5 gm PRN PRN Administration Hypoglycemia Protocol Glucagon 1 mg 10/08/24 22:06 Glucagon For Inj 1 Mg Vial IM PRN PRN Hypoglycemia Protocol Glucose 15 gm 10/08/24 22:06 Glucose Oral Gel 15 Gm Of Glucse In 37.5 Gm Tube PO PRN PRN Hypoglycemia Protocol Hydrocortisone Sodium Succinate 50 mg 10/17/24 18:00 10/20/24 05:51 Hydrocortisone Sodium Succinate 100 Mg/2 Ml Vial IV PUSH 10/20/24 17:59 50 mg Q12H CESAR Administration Hydrocortisone Sodium Succinate 50 mg 10/21/24 09:00 Hydrocortisone Sodium Succinate 100 Mg/2 Ml Vial IV PUSH 10/22/24 09:01 DAILY CESAR Dextrose 1,000 mls @ 100 mls/hr 10/08/24 22:06 Dextrose 5% 1,000 Ml IVPB PRN PRN Hypoglycemia Protocol Norepinephrine Bitartrate 8 mg in 250 mls @ 5.625 mls/hr 10/13/24 05:05 10/20/24 08:00 Levophed 8 Mg/D5w 250 Ml IV CONT 3 mcg/min .Q24H CESAR 5.63 mls/hr Titration Protocol 3 MCG/MIN Albumin Human 50 mls @ 999 mls/hr 10/14/24 06:24 10/15/24 17:30 Albutein IVPB 04/12/25 06:23 Infused Q10M PRN Infusion HYPOTENSION Insulin Aspart 4 - 8 units 10/11/24 12:00 10/20/24 08:07 Insulin Aspart (*Bkc) 100 Units/Ml SUB-Q Not Given Q4H [facility] Protocol Midodrine 10 mg 10/20/24 08:00 10/20/24 07:51 Midodrine Hcl 10 Mg Tablet FEED TUBE 10 mg Q6H CESAR Administration Neomycin/Polymyxin/Bacitracin 1 applic 10/17/24 09:00 10/19/24 08:35 Neomycin/Polymyxin/Bacitracin Ointment 15 Gm Tube TOPICAL 1 applic QAM CESAR Administration Pantoprazole Sodium 40 mg 10/09/24 13:45 10/19/24 08:35 Pantoprazole Sodium Iv 40 Mg Vial IV PUSH 40 mg QAM CESAR Administration Polyethylene Glycol 17 gm 10/15/24 10:25 10/19/24 08:35 Polyethylene Glycol 3350 17 Gm Powd.Pack PO Not Given QAM CESAR Fluticasone/Salmeterol 2 puff 10/09/24 08:00 10/09/24 09:26 Fluticasone/Salmeterol 115-21 Mcg Inhaler 1 Puff INHALATION Not Given Q12HRT CESAR Sevelamer Carbonate 1.6 gm 10/14/24 08:45 10/19/24 17:30 Sevelamer Carbonate 0.8 Gm Oral Powder Packet BY MOUTH 1.6 gm TIDWM CESAR Administration Sodium Chloride 10 ml 10/09/24 14:00 10/20/24 05:51 Central Line Flush IV PUSH 10 ml Q8HR CESAR Administration Sodium Chloride 20 ml 10/09/24 06:24 10/18/24 05:38 Central Line Flush IV PUSH 20 ml PRN PRN Administration after blood draws Radiology Results: ITS Impressions Pelvis X-Ray 10/08/24 22:22 IMPRESSION: As above. Head CT 10/08/24 23:18 IMPRESSION: No acute intracranial findings. Chest CT 10/08/24 23:27 IMPRESSION: 1. Interstitial thickening in the lower lobes which may indicate pneumonitis. Edema is less likely. 2. Cardiomegaly. 3. Cholelithiasis 4. Splenic cysts unchanged. Abdomen X-Ray 10/13/24 15:22 IMPRESSION: Nasogastric tube in good position and ready for immediate use. Modified Barium Swallow 10/18/24 17:03 IMPRESSION: Oropharyngeal dysphagia including laryngeal penetration with aspiration. Please correlate with speech pathologist findings and specific feeding recommendations. Chest X-Ray 10/20/24 06:20 Impression: Central congestive change with mild pulmonary edema and minimal right pleural effusion. Stable cardiomegaly. Labs Labs: Laboratory Results - last 24 hr 10/19/24 10/19/24 10/19/24 13:09 16:39 16:40 WBC RBC Hgb Hct MCV MCH MCHC RDW Plt Count MPV Immature Gran % (Auto) Neut % (Auto) Lymph % (Auto) Creek % (Auto) Eos % (Auto) Baso % (Auto) Lymph # (Auto) [place] # (Auto) Eos # (Auto) Baso # (Auto) Abs Immat Gran (auto) Absolute Neuts (auto) Absolute Nucleated RBC Band Neutrophils % Nucleated RBC % Platelet Estimate Target Cells Ovalocytes Faith Cells Schistocytes APTT 102.8 H Sodium Potassium Chloride Carbon Dioxide Anion Gap BUN Creatinine Estim Creat Clear Calc Estimated GFR Glucose POC Capillary Glucose 242 H 227 H Calcium Phosphorus Magnesium Total Bilirubin AST ALT Alkaline Phosphatase Total Protein Albumin 10/19/24 10/20/24 10/20/24 21:46 00:08 04:22 WBC 10.9 H RBC 3.90 L Hgb 12.1 L Hct 36.9 L MCV 94.6 MCH 31.0 MCHC 32.8 RDW 17.7 H Plt Count 138 L MPV 11.5 H Immature Gran % (Auto) 0.6 H Neut % (Auto) 82.0 H Lymph % (Auto) 4.8 L Creek % (Auto) 12.5 H Eos % (Auto) 0.0 Baso % (Auto) 0.1 L Lymph # (Auto) 0.52 L [place] # (Auto) 1.4 H Eos # (Auto) 0.0 Baso # (Auto) 0.0 Abs Immat Gran (auto) 0.06 H Absolute Neuts (auto) 8.9 H Absolute Nucleated RBC 0.000 Band Neutrophils % 0 Nucleated RBC % 0.0 Platelet Estimate Slightly decreased Target Cells 1+ Ovalocytes 1+ [place] Cells 1+ Schistocytes None seen APTT Sodium 135 L Potassium 4.8 Chloride 92 L Carbon Dioxide 24 Anion Gap 19 H BUN 101 H D Creatinine 5.80 H Estim Creat Clear Calc 9 Estimated GFR 9 L Glucose 164 H POC Capillary Glucose 233 H 220 H Calcium 7.7 L Phosphorus 4.3 Magnesium 2.5 H Total Bilirubin 1.8 H AST 31 ALT 19 Alkaline Phosphatase 88 Total Protein 7.0 Albumin 3.8 Quality VTE Prophylaxis VTE prophylaxis: mechanical ordered
--- NOTE | 2024-10-20 09:58 | P.PNNP_ITS ---
Progress Note: A&P Assessment and Plan (1) End-stage renal disease (ESRD): Code(s): N18.6 - End stage renal disease Status: Chronic Assessment and Plan: * HD is underway. Doing well with fluid removal. His blood pressures in the 80s which is where it usually is for many months. * He is doing well today in regards to breathing. * Blood pressure is Doing pretty well. Levophed dropped to 2.5 mics now * He has a femoral line. This can come out. He is going to get a PICC line. I talked with Dr. Mercer (2) Septic shock: Code(s): A41.9 - Sepsis, unspecified organism; R65.21 - Severe sepsis with septic shock Status: Acute Assessment and Plan: * recent cultures negative. * Blood pressure is better on less Levophed (3) Acute respiratory failure: Code(s): J96.00 - Acute respiratory failure, unspecified whether with hypoxia or hypercapnia Status: Acute Assessment and Plan: * multifactorial: * pneumonia * altered mental status * need for airway protection * fluid * off the ventilator. * breathing okay right now off oxygen * Will try to take off as much fluid on dialysis today (4) Bacteremia: Code(s): R78.81 - Bacteremia Status: Acute Assessment and Plan: * / blood cultures with Streptococcus mitis * 10/10 repeat set of blood culture with NO growth to date * TTE (10/11 )results noted: * left ventricular systolic function is normal, estimated at > 70% * left ventricular diastolic function is grade II diastolic dysfunction * right ventricular systolic function is reduced. * flattening of the septum in diastole and systole consistent with right ventricular volume and pressure overload * left and right atrial chamber dimension is severely enlarged * mild mitral valve regurgitation * moderate to severe tricuspid valve regurgitation. * pulmonary hypertension, estimated pulmonary arterial systolic pressureis 66 mmHg * cannot rule out vegetations on this study * ROBERT (10/13): * no vegetations noted on the mitral valve -- trace mitral valve regurgitation * no vegetations noted on tricuspid valve -- moderate tricuspid valve regurgitation * no vegetations on the aortic valve -- aortic valve is trileaflet * pulmonary valve appears grossly normal without vegetations * interatrial septum is anatomically normal without evidence of shunt with color-flow Doppler * mild atherosclerotic disease in the aorta. * on ceftriaxone * see #2 (5) Pneumonia: Code(s): J18.9 - Pneumonia, unspecified organism Status: Acute Assessment and Plan: * suggested by recent imaging (CXR + CT scan) * on ceftriaxone (6) Influenza A: Code(s): J10.1 - Influenza due to other identified influenza virus with other respiratory manifestations Status: Acute Assessment and Plan: * as noted by testing in ER * completed course of Tamiflu (7) Altered mental status: Code(s): R41.82 - Altered mental status, unspecified Status: Acute Assessment and Plan: * this seems gradually better (8) Anemia: Qualifiers: Anemia type: unspecified type Qualified Code(s): D64.9 - Anemia, unspecified Code(s): D64.9 - Anemia, unspecified Status: Chronic Assessment and Plan: * due to ESRD * hold Retacrit since Hgb > 11 * Hb 12.1 today (9) Diabetes: Qualifiers: Diabetes mellitus type: type 2 Diabetes mellitus care home insulin use: without care home use Diabetes mellitus complication status: with kidney complications Diabetes mellitus complication detail: with chronic kidney disease Chronic kidney disease stage: on chronic dialysis Qualified Code(s): E11.22 - Type 2 diabetes mellitus with diabetic chronic kidney disease; N18.6 - End stage renal disease; Z99.2 - Dependence on renal dialysis Code(s): E11.9 - Type 2 diabetes mellitus without complications Status: Chronic Assessment and Plan: * follow accu-cheks * glycemic control per hospitalist/director diversity Subjective Date/time seen: 10/20/24 09:58 Interval history: Patient is awake but very weak. He is off oxygen No shortness of breath On less Levophed. Down to 2.5 mics On dialysis and tolerating it well. He was seen at 9:35 a.m. Exam Narrative: General: pleasant male lying in the hospital bed in no acute distress Heart: IRRR, normal S1 and S2; no rub Lungs: Symmetric and fairly clear Abdomen: Bowel sounds positive and soft Extremities:1+ presacral edema with chronic venous stasis changes in the shins Skin: no rash Objective Data Vital Signs Vital Signs: Vital Signs - 24 hr 10/19/24 10:00 10/19/24 10:00 10/19/24 10:00 Temperature 98.4 F Pulse Rate 76 77 77 Respiratory Rate 18 Blood Pressure 95/55 L 92/53 L Pulse Oximetry 96 Oxygen Delivery Oxygen Flow Rate Fraction of Inspired Oxygen 10/19/24 12:00 10/19/24 12:00 10/19/24 12:00 Temperature Pulse Rate 78 72 Respiratory Rate Blood Pressure 99/62 L Pulse Oximetry 98 Oxygen Delivery Room Air Oxygen Flow Rate Fraction of Inspired Oxygen 10/19/24 12:00 10/19/24 14:00 10/19/24 14:00 Temperature 98.6 F 97.7 F Pulse Rate 72 75 75 Respiratory Rate 18 18 Blood Pressure 96/59 L 90/56 L Pulse Oximetry 98 96 Oxygen Delivery Oxygen Flow Rate Fraction of Inspired Oxygen 10/19/24 14:00 10/19/24 14:15 10/19/24 14:26 Temperature 97.7 F Pulse Rate 76 74 67 Respiratory Rate 20 Blood Pressure 90/56 L 93/57 L 91/61 L Pulse Oximetry 97 Oxygen Delivery Oxygen Flow Rate Fraction of Inspired Oxygen 10/19/24 14:41 10/19/24 14:45 10/19/24 14:50 Temperature Pulse Rate 68 68 62 Respiratory Rate 20 20 Blood Pressure 94/54 L Pulse Oximetry Oxygen Delivery Oxygen Flow Rate Fraction of Inspired Oxygen 10/19/24 15:00 10/19/24 15:15 10/19/24 15:30 Temperature Pulse Rate 74 69 73 Respiratory Rate Blood Pressure 96/55 L 90/51 L 88/52 L Pulse Oximetry Oxygen Delivery Oxygen Flow Rate Fraction of Inspired Oxygen 10/19/24 15:45 10/19/24 15:50 10/19/24 16:00 Temperature Pulse Rate 78 64 68 Respiratory Rate Blood Pressure 83/60 L 83/60 L 94/58 L Pulse Oximetry Oxygen Delivery Oxygen Flow Rate Fraction of Inspired Oxygen 10/19/24 16:00 10/19/24 16:00 10/19/24 16:00 Temperature Pulse Rate 77 77 Respiratory Rate Blood Pressure 94/58 L Pulse Oximetry 97 Oxygen Delivery Room Air Oxygen Flow Rate Fraction of Inspired Oxygen 10/19/24 16:00 10/19/24 16:15 10/19/24 16:30 Temperature 97.8 F Pulse Rate 73 77 67 Respiratory Rate 16 Blood Pressure 94/58 L 93/53 L 94/54 L Pulse Oximetry 97 Oxygen Delivery Oxygen Flow Rate Fraction of Inspired Oxygen 10/19/24 16:45 10/19/24 17:00 10/19/24 17:15 Temperature Pulse Rate 73 71 73 Respiratory Rate Blood Pressure 86/51 L 96/57 L 93/56 L Pulse Oximetry Oxygen Delivery Oxygen Flow Rate Fraction of Inspired Oxygen 10/19/24 17:26 10/19/24 17:30 10/19/24 17:38 Temperature 97.8 F Pulse Rate 70 73 69 Respiratory Rate 15 Blood Pressure 88/58 L 91/56 L 94/61 L Pulse Oximetry 97 Oxygen Delivery Oxygen Flow Rate Fraction of Inspired Oxygen 10/19/24 18:00 10/19/24 18:00 10/19/24 18:07 Temperature Pulse Rate 65 65 65 Respiratory Rate 18 Blood Pressure 94/54 L 94/54 L Pulse Oximetry 98 Oxygen Delivery Oxygen Flow Rate Fraction of Inspired Oxygen 10/19/24 19:33 10/19/24 19:33 10/19/24 19:49 Temperature Pulse Rate 66 71 Respiratory Rate 16 18 Blood Pressure Pulse Oximetry 96 Oxygen Delivery Room Air Oxygen Flow Rate Fraction of Inspired Oxygen 10/19/24 20:00 10/19/24 20:00 10/19/24 20:00 Temperature 98.1 F Pulse Rate 71 68 68 Respiratory Rate 18 17 Blood Pressure 88/53 L Pulse Oximetry 96 94 Oxygen Delivery Room Air Oxygen Flow Rate Fraction of Inspired Oxygen 10/19/24 20:00 10/19/24 21:00 10/19/24 22:00 Temperature Pulse Rate 68 73 74 Respiratory Rate Blood Pressure 88/53 L 101/58 L Pulse Oximetry Oxygen Delivery Oxygen Flow Rate Fraction of Inspired Oxygen 10/19/24 22:00 10/19/24 22:01 10/19/24 22:30 Temperature Pulse Rate 76 78 74 Respiratory Rate 20 18 Blood Pressure 99/60 L 95/69 L Pulse Oximetry 96 95 Oxygen Delivery Oxygen Flow Rate Fraction of Inspired Oxygen 10/19/24 22:30 10/19/24 22:31 10/19/24 22:45 Temperature Pulse Rate 77 69 71 Respiratory Rate 20 13 Blood Pressure 95/59 L 98/60 L Pulse Oximetry 97 98 96 Oxygen Delivery Oxygen Flow Rate Fraction of Inspired Oxygen 10/19/24 23:00 10/19/24 23:30 10/19/24 23:31 Temperature Pulse Rate 71 71 74 Respiratory Rate 12 20 17 Blood Pressure 105/55 L 92/54 L Pulse Oximetry 96 96 97 Oxygen Delivery Oxygen Flow Rate Fraction of Inspired Oxygen 10/19/24 23:45 10/20/24 00:00 10/20/24 00:00 Temperature Pulse Rate 75 72 78 Respiratory Rate 19 20 Blood Pressure 95/53 L Pulse Oximetry 95 97 Oxygen Delivery Room Air Oxygen Flow Rate Fraction of Inspired Oxygen 10/20/24 00:00 10/20/24 00:01 10/20/24 00:01 Temperature 98.3 F Pulse Rate 78 71 71 Respiratory Rate 15 Blood Pressure 92/51 L 95/61 L 95/61 L Pulse Oximetry 96 Oxygen Delivery Oxygen Flow Rate Fraction of Inspired Oxygen 10/20/24 00:01 10/20/24 00:30 10/20/24 00:45 Temperature Pulse Rate 78 74 76 Respiratory Rate 19 11 L Blood Pressure 98/51 L 95/57 L 90/56 L Pulse Oximetry 95 97 Oxygen Delivery Oxygen Flow Rate Fraction of Inspired Oxygen 10/20/24 01:00 10/20/24 01:01 10/20/24 01:28 Temperature Pulse Rate 74 77 72 Respiratory Rate 19 19 18 Blood Pressure 91/58 L Pulse Oximetry 95 95 Oxygen Delivery Oxygen Flow Rate Fraction of Inspired Oxygen 10/20/24 01:30 10/20/24 01:39 10/20/24 02:00 Temperature Pulse Rate 74 76 78 Respiratory Rate 19 18 Blood Pressure 98/61 L 97/54 L Pulse Oximetry 100 Oxygen Delivery Oxygen Flow Rate Fraction of Inspired Oxygen 10/20/24 02:00 10/20/24 02:00 10/20/24 03:45 Temperature Pulse Rate 78 75 74 Respiratory Rate 18 Blood Pressure 97/54 L 97/58 L Pulse Oximetry 96 Oxygen Delivery Oxygen Flow Rate Fraction of Inspired Oxygen 10/20/24 04:00 10/20/24 04:00 10/20/24 04:00 Temperature 97.8 F Pulse Rate 74 74 74 Respiratory Rate 15 17 Blood Pressure 91/61 L Pulse Oximetry 97 97 Oxygen Delivery Room Air Oxygen Flow Rate Fraction of Inspired Oxygen 10/20/24 04:00 10/20/24 05:30 10/20/24 06:00 Temperature Pulse Rate 74 79 75 Respiratory Rate Blood Pressure 91/61 L 96/61 L Pulse Oximetry Oxygen Delivery Oxygen Flow Rate Fraction of Inspired Oxygen 10/20/24 06:00 10/20/24 06:00 10/20/24 08:00 Temperature Pulse Rate 75 78 77 Respiratory Rate 17 Blood Pressure 97/62 L 97/62 L 96/56 L Pulse Oximetry 98 Oxygen Delivery Oxygen Flow Rate Fraction of Inspired Oxygen 10/20/24 08:00 10/20/24 08:00 10/20/24 08:00 Temperature 99.4 F Pulse Rate 80 78 Respiratory Rate 21 H Blood Pressure 96/56 L Pulse Oximetry 95 Oxygen Delivery Room Air Oxygen Flow Rate Fraction of Inspired Oxygen 10/20/24 08:06 10/20/24 08:06 10/20/24 08:22 Temperature 97.6 F Pulse Rate 78 Respiratory Rate 20 Blood Pressure 100/53 L Pulse Oximetry 97 Oxygen Delivery Room Air Oxygen Flow Rate 1 Fraction of Inspired Oxygen 21 10/20/24 08:22 10/20/24 08:25 10/20/24 08:30 Temperature Pulse Rate 75 74 78 Respiratory Rate 22 H Blood Pressure 106/70 104/57 L Pulse Oximetry Oxygen Delivery Oxygen Flow Rate Fraction of Inspired Oxygen 10/20/24 08:35 10/20/24 08:45 10/20/24 09:00 Temperature Pulse Rate 76 72 90 Respiratory Rate 20 Blood Pressure 94/57 L 86/58 L Pulse Oximetry Oxygen Delivery Oxygen Flow Rate Fraction of Inspired Oxygen 10/20/24 09:15 10/20/24 09:30 10/20/24 09:45 Temperature Pulse Rate 86 96 90 Respiratory Rate Blood Pressure 92/53 L 87/53 L 87/57 L Pulse Oximetry Oxygen Delivery Oxygen Flow Rate Fraction of Inspired Oxygen Intake/Output Intake/Output: Intake & Output 10/17/24 10/18/24 10/19/24 10/20/24 23:59 23:59 23:59 23:59 Intake Total 599.8 721.8 689.3 492.4 Output Total 0 2600 3000 0 Balance 599.8 -1878.2 -2310.7 492.4 Meds/Results Medications: Active Medications Generic Name Dose Route Start Last Admin Trade Name Freq PRN Reason Stop Dose Admin Acetaminophen 650 mg 10/08/24 20:49 Acetaminophen 650 Mg Suppository RECTAL Q6H PRN Mild Pain (1-3) or Fever Albuterol/Ipratropium 3 ml 10/09/24 14:00 10/20/24 08:22 Ipratropium 0.5 Mg/Albuterol Sulfate 2.5 Mg Ampul.Neb 3 Ml INHALATION 3 ml Q6HRT CESAR Administration Allopurinol 100 mg 10/09/24 08:00 10/19/24 08:33 Allopurinol 100 Mg Tablet PO Not Given DAILY@0800 CESAR Apixaban 2.5 mg 10/09/24 09:00 10/20/24 07:51 Apixaban 2.5 Mg Tablet PO 2.5 mg Q12HR CESAR Administration Atorvastatin Calcium 10 mg 10/09/24 09:00 10/19/24 08:34 Atorvastatin 10 Mg Tablet PO Not Given DAILY CESAR Budesonide 0.5 mg 10/09/24 20:00 10/20/24 08:22 Budesonide Respule Neb 0.5 Mg/2 Ml Amp INHALATION 0.5 mg Q12HRT CESAR Administration Dextrose 12.5 gm 10/08/24 22:06 10/17/24 09:53 Dextrose 50% 25 Gm/50 Ml Syringe IV PUSH 12.5 gm PRN PRN Administration Hypoglycemia Protocol Glucagon 1 mg 10/08/24 22:06 Glucagon For Inj 1 Mg Vial IM PRN PRN Hypoglycemia Protocol Glucose 15 gm 10/08/24 22:06 Glucose Oral Gel 15 Gm Of Glucse In 37.5 Gm Tube PO PRN PRN Hypoglycemia Protocol Hydrocortisone Sodium Succinate 50 mg 10/17/24 18:00 10/20/24 05:51 Hydrocortisone Sodium Succinate 100 Mg/2 Ml Vial IV PUSH 10/20/24 17:59 50 mg Q12H CESAR Administration Hydrocortisone Sodium Succinate 50 mg 10/21/24 09:00 Hydrocortisone Sodium Succinate 100 Mg/2 Ml Vial IV PUSH 10/22/24 09:01 DAILY CESAR Dextrose 1,000 mls @ 100 mls/hr 10/08/24 22:06 Dextrose 5% 1,000 Ml IVPB PRN PRN Hypoglycemia Protocol Norepinephrine Bitartrate 8 mg in 250 mls @ 5.625 mls/hr 10/13/24 05:05 10/20/24 08:00 Levophed 8 Mg/D5w 250 Ml IV CONT 3 mcg/min .Q24H CESAR 5.63 mls/hr Titration Protocol 3 MCG/MIN Albumin Human 50 mls @ 999 mls/hr 10/14/24 06:24 10/15/24 17:30 Albutein IVPB 11/13/24 06:23 Infused Q10M PRN Infusion HYPOTENSION Insulin Aspart 4 - 8 units 10/11/24 12:00 10/20/24 08:07 Insulin Aspart (*Bkc) 100 Units/Ml SUB-Q Not Given Q4H [facility] Protocol Insulin Glargine 12 units 10/20/24 09:40 Insulin Glargine (*Bkc) 100 Units/Ml SUB-Q DAILY CESAR Midodrine 10 mg 10/20/24 08:00 10/20/24 07:51 Midodrine Hcl 10 Mg Tablet FEED TUBE 10 mg Q6H CESAR Administration Neomycin/Polymyxin/Bacitracin 1 applic 10/17/24 09:00 10/19/24 08:35 Neomycin/Polymyxin/Bacitracin Ointment 15 Gm Tube TOPICAL 1 applic QAM CESAR Administration Pantoprazole Sodium 40 mg 10/09/24 13:45 10/19/24 08:35 Pantoprazole Sodium Iv 40 Mg Vial IV PUSH 40 mg QAM CESAR Administration Polyethylene Glycol 17 gm 10/15/24 10:25 10/19/24 08:35 Polyethylene Glycol 3350 17 Gm Powd.Pack PO Not Given QAM CESAR Fluticasone/Salmeterol 2 puff 10/09/24 08:00 10/09/24 09:26 Fluticasone/Salmeterol 115-21 Mcg Inhaler 1 Puff INHALATION Not Given Q12HRT CESAR Sevelamer Carbonate 1.6 gm 10/14/24 08:45 10/19/24 17:30 Sevelamer Carbonate 0.8 Gm Oral Powder Packet BY MOUTH 1.6 gm TIDWM CESAR Administration Sodium Chloride 10 ml 10/09/24 14:00 10/20/24 05:51 Central Line Flush IV PUSH 10 ml Q8HR CESAR Administration Sodium Chloride 20 ml 10/09/24 06:24 10/18/24 05:38 Central Line Flush IV PUSH 20 ml PRN PRN Administration after blood draws Radiology Results: ITS Impressions Pelvis X-Ray 10/08/24 22:22 IMPRESSION: As above. Head CT 10/08/24 23:18 IMPRESSION: No acute intracranial findings. Chest CT 10/08/24 23:27 IMPRESSION: 1. Interstitial thickening in the lower lobes which may indicate pneumonitis. Edema is less likely. 2. Cardiomegaly. 3. Cholelithiasis 4. Splenic cysts unchanged. Abdomen X-Ray 10/13/24 15:22 IMPRESSION: Nasogastric tube in good position and ready for immediate use. Modified Barium Swallow 10/18/24 17:03 IMPRESSION: Oropharyngeal dysphagia including laryngeal penetration with aspiration. Please correlate with speech pathologist findings and specific feeding recommendations. Chest X-Ray 10/20/24 06:20 Impression: Central congestive change with mild pulmonary edema and minimal right pleural effusion. Stable cardiomegaly. Labs Labs: Laboratory Results - last 24 hr 10/19/24 10/19/24 10/19/24 13:09 16:39 16:40 WBC RBC Hgb Hct MCV MCH MCHC RDW Plt Count MPV Immature Gran % (Auto) Neut % (Auto) Lymph % (Auto) [place] % (Auto) Eos % (Auto) Baso % (Auto) Lymph # (Auto) [place] # (Auto) Eos # (Auto) Baso # (Auto) Abs Immat Gran (auto) Absolute Neuts (auto) Absolute Nucleated RBC Band Neutrophils % Nucleated RBC % Platelet Estimate Target Cells Ovalocytes Mouthcard Cells Schistocytes APTT 102.8 H Sodium Potassium Chloride Carbon Dioxide Anion Gap BUN Creatinine Estim Creat Clear Calc Estimated GFR Glucose POC Capillary Glucose 242 H 227 H Calcium Phosphorus Magnesium Total Bilirubin AST ALT Alkaline Phosphatase Total Protein Albumin 10/19/24 10/20/24 10/20/24 21:46 00:08 04:22 WBC 10.9 H RBC 3.90 L Hgb 12.1 L Hct 36.9 L MCV 94.6 MCH 31.0 MCHC 32.8 RDW 17.7 H Plt Count 138 L MPV 11.5 H Immature Gran % (Auto) 0.6 H Neut % (Auto) 82.0 H Lymph % (Auto) 4.8 L [place] % (Auto) 12.5 H Eos % (Auto) 0.0 Baso % (Auto) 0.1 L Lymph # (Auto) 0.52 L [place] # (Auto) 1.4 H Eos # (Auto) 0.0 Baso # (Auto) 0.0 Abs Immat Gran (auto) 0.06 H Absolute Neuts (auto) 8.9 H Absolute Nucleated RBC 0.000 Band Neutrophils % 0 Nucleated RBC % 0.0 Platelet Estimate Slightly decreased Target Cells 1+ Ovalocytes 1+ [place] Cells 1+ Schistocytes None seen APTT Sodium 135 L Potassium 4.8 Chloride 92 L Carbon Dioxide 24 Anion Gap 19 H BUN 101 H D Creatinine 5.80 H Estim Creat Clear Calc 9 Estimated GFR 9 L Glucose 164 H POC Capillary Glucose 233 H 220 H Calcium 7.7 L Phosphorus 4.3 Magnesium 2.5 H Total Bilirubin 1.8 H AST 31 ALT 19 Alkaline Phosphatase 88 Total Protein 7.0 Albumin 3.8
[2024-10-20] MEDS: INSULIN GLARGINE (*BKC) 100 UNITS/ML 12 UNITS SUB-Q (10:14)
--- NOTE | 2024-10-20 10:32 | PCFNICU ---
ICU Rounding Note: Pt current nutrition is Nepro at 40 ml/hr. Nutrition recommendation: Prosource BID Last recorded weight is 87.4 kg, down from 103.6 kg on admit. Bowel Motility: +BM reported 10/12 Labs Reviewed: Cr 5.8, BUN 101, Glu 164 Meds Noted:Rocephin, Protonix, Miralax, Eliquis Skin: WNL Additional Notes: Patient had Dobbhoff placed yesterday. Tube feedings are at goal of 40 ml/hr of Nepro. Protein Modular added today for additional 160 kcal and 40 gm protein. Total Nutrition: 1744 kcal/106 gm protein/640 ml water. Flush 30 ml q 4 hours. Dialysis today. Following daily in ICU rounds. Monitoring intakes, weights, labs, swallowing evaluation, diet orders every Friday and Friday.
[2024-10-20 11:41] LABS: Glucose Point of Care 160 mg/dl (65-105)
[2024-10-20 12:18] LABS: Glucose Point of Care 196 mg/dl (65-105)
[2024-10-20] MEDS: SEVELAMER CARBONATE 0.8 GM ORAL POWDER PACKET 1.6 GM BY MOUTH ×2 (12:41→16:38)
[2024-10-20] MEDS: ATORVASTATIN 10 MG TABLET PO (12:42)
[2024-10-20] MEDS: polyethylene glycoL 3350 17 GM POWD.PACK PO (12:42)
[2024-10-20] MEDS: PANTOPRAZOLE SODIUM IV 40 MG VIAL IV PUSH (12:42)
[2024-10-20] MEDS: allopurinoL 100 MG TABLET PO (12:42)
[2024-10-20] MEDS: NEOMYCIN/POLYMYXIN/BACITRACIN OINTMENT 15 GM TUBE 1 APPLIC TOPICAL (12:43)
[2024-10-20] MEDS: LIDOCAINE 1% PF INJ 5 ML VIAL INFILTRATE (12:45)
--- NOTE | 2024-10-20 13:04 | PCPTNOTE ---
The patient treatment was not able to be completed at this time due to having PIC Line placed. Will plan to continue treatment per plan of care.
--- NOTE | 2024-10-20 13:17 | PC.NURSE ---
Assumed care of this patient at 1230. Received report from Chelita Encarnacion Labs, medications, and orders reviewed. Upon assessment vital signs are stable, patient alert and oriented to self and place, no acute distress note, skin warm and dry, no acute changes, pain assessed and managed per orders.. IVs intact and functioning as expected. PICC line currently being placed at the bedside. CVC to be removed.
[2024-10-20 15:59] LABS: Glucose Point of Care 237 mg/dl (65-105)
--- NOTE | 2024-10-20 16:00 | PM.IMPN ---
Progress Note: A&P Assessment and Plan (1) Sepsis: Code(s): A41.9 - Sepsis, unspecified organism Status: Acute (2) Influenza: Code(s): J11.1 - Influenza due to unidentified influenza virus with other respiratory manifestations Status: Acute (3) Pneumonia: Code(s): J18.9 - Pneumonia, unspecified organism Status: Acute (4) Altered mental status: Code(s): R41.82 - Altered mental status, unspecified Status: Acute (5) End-stage renal disease on hemodialysis: Code(s): N18.6 - End stage renal disease; Z99.2 - Dependence on renal dialysis Status: Acute (6) Type 2 diabetes mellitus with diabetic neuropathy: Qualifiers: Diabetes mellitus counselor aid insulin use: without counselor aid use Qualified Code(s): E11.40 - Type 2 diabetes mellitus with diabetic neuropathy, unspecified Code(s): E11.40 - Type 2 diabetes mellitus with diabetic neuropathy, unspecified Status: Chronic Plan The patient presented to the emergency department for evaluation of altered mental status following dialysis as detailed in HPI. Labs, imaging, EKG, and all reports were personally reviewed. He meets sepsis criteria with hypotension, low-grade fever, bandemia, lactic acidosis, and altered mental status in the setting of infection. He remained hypotensive following a 1.5 L normal saline bolus (more fluids were not given due to his end-stage renal disease) and he has been started on vasopressors with a target MAP of at least 65. He tested positive for influenza A and chest x-ray shows findings of possible pneumonia for which he has been started on oseltamivir and azithromycin, ceftriaxone, and vancomycin. MRSA nasal screen pending. Sputum culture ordered. There were no reports of obvious focal deficits on exam in the ED and his altered mental status may very well be related to sepsis, influenza, and hypotension. Brain CT was without acute findings. Initiate sliding scale insulin, Accu-Cheks, and hypoglycemic protocol. He will be due for dialysis on Friday. His medications will be reviewed and resumed as appropriate. Findings and treatment plan were discussed with the patient's . Questions were solicited and answered to satisfaction. The patient's medical management will be taken over by the hospitalist team in a.m. patient presented with hypotension and confusion, patient was intubated and on ventilator, patient is receiving IVF and on pressor, discussed with hot wire glass tube cutter patient blood pressure is improving and his off pressors, patient is found to have Influenza A treated with Tamiflu patient's and son are present in the room, on 10/13 patient had ROBERT there is no evidence endocarditis, patient is clinically improving and discussed with hot wire glass tube cutter plan give weaning trial, on 10/16 patient was extubated and tolerating, failed bedside swallow study today, will have MBS tomorrow, patient still remains on pressors, patient and son are present, patient is seen by hot wire glass tube cutter and further recommendation to follow. patient presented with hypotension and confusion, patient was intubated and on ventilator, patient is receiving IVF and on pressor, discussed with hot wire glass tube cutter patient blood pressure is improving and his off pressors, patient is found to have Influenza A treated with Tamiflu patient's and son are present in the room, on 10/13 patient had ROBERT there is no evidence endocarditis, patient is clinically improving and discussed with hot wire glass tube cutter plan give weaning trial, on 10/16 patient was extubated and tolerating,on 10/17 failed bedside swallow study, patient had MBS on 10/18 and failed, on 10/19 Dobbhoff was placed by IR, feeding is started, patient is having hemodialysis today plan is to remove 3 L, patient seen by hot wire glass tube cutter and pulvi mixer operator and appreciate Subjective Date/time seen: 10/20/24 16:00 Interval history: Altered mental status. H&P-Narrative: This is an 84-year-old male with end-stage renal disease on hemodialysis, congestive heart failure, pulmonary hypertension, type 2 diabetes mellitus, atrial fibrillation on anticoagulation, hypertension, chronic anemia, and other comorbidities who presented to the emergency department via EMS for evaluation of altered mental status after dialysis. He was intubated in the emergency department and the following history is obtained from the patient's as well as review of his electronic medical records. He went to dialysis at 05:00 and completed a session. His that time he has reportedly been increasingly confused, mumbling to himself and not making any sense. In the ED his only complaint was that of not feeling well but he did not elaborate. reports that he had a bit of a cough yesterday which she believes was nonproductive. There were no reports of fever, cold and flu symptoms, vomiting, or diarrhea. In the ED: Vital signs on arrival include a temperature of 99.8?, blood pressure 72/37, pulse 87, respiratory 22, SpO2 95%. Labs were significant for WBC count of 7.9 with 10 bands noted on manual differential, sodium 136, chloride 92, carbon dioxide 34, BUN 26, creatinine 3.68, lactic acid 2.9, calcium 7.9, total bilirubin 2.1. He tested positive for influenza A. Chest x-ray showed bilateral social pneumonitis versus pulmonary edema. Blood pressure continue to drift down words and he was given a 1500 mL bolus of normal saline without much improvement. The decision was made to put in the central line and start the patient on vasopressors however the patient had difficulties lying still for central line placement and he was sedated and eventually intubated and he is being admitted to the ICU in this setting with hypotension, influenza, pneumonia, and altered mental status. patient presented with hypotension and confusion, patient was intubated and on ventilator, patient is receiving IVF and on pressor, discussed with hot wire glass tube cutter patient blood pressure is improving and his off pressors, patient is found to have Influenza A treated with Tamiflu patient's and son are present in the room, on 10/13 patient had ROBERT there is no evidence endocarditis, patient is clinically improving and discussed with hot wire glass tube cutter plan give weaning trial, on 10/16 patient was extubated and tolerating,on 10/17 failed bedside swallow study, patient had MBS on 10/18 and failed, on 10/19 Dobbhoff was placed by IR, feeding is started, patient is having hemodialysis today plan is to remove 3 L, patient seen by hot wire glass tube cutter and pulvi mixer operator and appreciate Review of Systems Review of Systems: ROS unobtainable: Yes unobtainable due to medical condition and unobtainable due to mental status Exam Narrative: Patient is comfortable, NAD HEENT: clear Dobbhoff in place LUNGS:CTA HEART: RR S1S2 ABD: BS+, Soft and nontender Lower extremities: no edema SKIN: nonjaundiced Neuro: still somewhat sedated Objective Data Vital Signs Vital Signs: Vital Signs - 24 hr 10/19/24 16:15 10/19/24 16:30 10/19/24 16:45 Temperature Pulse Rate 77 67 73 Respiratory Rate Blood Pressure 93/53 L 94/54 L 86/51 L Pulse Oximetry Oxygen Delivery Oxygen Flow Rate Fraction of Inspired Oxygen 10/19/24 17:00 10/19/24 17:15 10/19/24 17:26 Temperature Pulse Rate 71 73 70 Respiratory Rate Blood Pressure 96/57 L 93/56 L 88/58 L Pulse Oximetry Oxygen Delivery Oxygen Flow Rate Fraction of Inspired Oxygen 10/19/24 17:30 10/19/24 17:38 10/19/24 18:00 Temperature 36.6 C Pulse Rate 73 69 65 Respiratory Rate 15 Blood Pressure 91/56 L 94/61 L Pulse Oximetry 97 Oxygen Delivery Oxygen Flow Rate Fraction of Inspired Oxygen 10/19/24 18:00 10/19/24 18:07 10/19/24 19:33 Temperature Pulse Rate 65 65 Respiratory Rate 18 Blood Pressure 94/54 L 94/54 L Pulse Oximetry 98 96 Oxygen Delivery Room Air Oxygen Flow Rate Fraction of Inspired Oxygen 21 10/19/24 19:33 10/19/24 19:49 10/19/24 20:00 Temperature Pulse Rate 66 71 71 Respiratory Rate 16 18 18 Blood Pressure Pulse Oximetry 96 Oxygen Delivery Room Air Oxygen Flow Rate Fraction of Inspired Oxygen 10/19/24 20:00 10/19/24 20:00 10/19/24 20:00 Temperature 36.7 C Pulse Rate 68 68 68 Respiratory Rate 17 Blood Pressure 88/53 L 88/53 L Pulse Oximetry 94 Oxygen Delivery Oxygen Flow Rate Fraction of Inspired Oxygen 10/19/24 21:00 10/19/24 22:00 10/19/24 22:00 Temperature Pulse Rate 73 74 76 Respiratory Rate 20 Blood Pressure 101/58 L 99/60 L Pulse Oximetry 96 Oxygen Delivery Oxygen Flow Rate Fraction of Inspired Oxygen 10/19/24 22:01 10/19/24 22:30 10/19/24 22:30 Temperature Pulse Rate 78 74 77 Respiratory Rate 18 20 Blood Pressure 95/69 L 95/59 L Pulse Oximetry 95 97 Oxygen Delivery Oxygen Flow Rate Fraction of Inspired Oxygen 10/19/24 22:31 10/19/24 22:45 10/19/24 23:00 Temperature Pulse Rate 69 71 71 Respiratory Rate 13 12 Blood Pressure 98/60 L 105/55 L Pulse Oximetry 98 96 96 Oxygen Delivery Oxygen Flow Rate Fraction of Inspired Oxygen 10/19/24 23:30 10/19/24 23:31 10/19/24 23:45 Temperature Pulse Rate 71 74 75 Respiratory Rate 20 17 19 Blood Pressure 92/54 L 95/53 L Pulse Oximetry 96 97 95 Oxygen Delivery Oxygen Flow Rate Fraction of Inspired Oxygen 10/20/24 00:00 10/20/24 00:00 10/20/24 00:00 Temperature 36.8 C Pulse Rate 72 78 78 Respiratory Rate 20 15 Blood Pressure 92/51 L Pulse Oximetry 97 96 Oxygen Delivery Room Air Oxygen Flow Rate Fraction of Inspired Oxygen 10/20/24 00:01 10/20/24 00:01 10/20/24 00:01 Temperature Pulse Rate 71 71 78 Respiratory Rate Blood Pressure 95/61 L 95/61 L 98/51 L Pulse Oximetry Oxygen Delivery Oxygen Flow Rate Fraction of Inspired Oxygen 10/20/24 00:30 10/20/24 00:45 10/20/24 01:00 Temperature Pulse Rate 74 76 74 Respiratory Rate 19 11 L 19 Blood Pressure 95/57 L 90/56 L 91/58 L Pulse Oximetry 95 97 95 Oxygen Delivery Oxygen Flow Rate Fraction of Inspired Oxygen 10/20/24 01:01 10/20/24 01:28 10/20/24 01:30 Temperature Pulse Rate 77 72 74 Respiratory Rate 19 18 19 Blood Pressure 98/61 L Pulse Oximetry 95 100 Oxygen Delivery Oxygen Flow Rate Fraction of Inspired Oxygen 10/20/24 01:39 10/20/24 02:00 10/20/24 02:00 Temperature Pulse Rate 76 78 78 Respiratory Rate 18 Blood Pressure 97/54 L Pulse Oximetry Oxygen Delivery Oxygen Flow Rate Fraction of Inspired Oxygen 10/20/24 02:00 10/20/24 03:45 10/20/24 04:00 Temperature Pulse Rate 75 74 74 Respiratory Rate 18 15 Blood Pressure 97/54 L 97/58 L Pulse Oximetry 96 97 Oxygen Delivery Room Air Oxygen Flow Rate Fraction of Inspired Oxygen 10/20/24 04:00 10/20/24 04:00 10/20/24 04:00 Temperature 36.6 C Pulse Rate 74 74 74 Respiratory Rate 17 Blood Pressure 91/61 L 91/61 L Pulse Oximetry 97 Oxygen Delivery Oxygen Flow Rate Fraction of Inspired Oxygen 10/20/24 05:30 10/20/24 06:00 10/20/24 06:00 Temperature Pulse Rate 79 75 75 Respiratory Rate 17 Blood Pressure 96/61 L 97/62 L Pulse Oximetry 98 Oxygen Delivery Oxygen Flow Rate Fraction of Inspired Oxygen 10/20/24 06:00 10/20/24 08:00 10/20/24 08:00 Temperature 37.4 C Pulse Rate 78 77 80 Respiratory Rate 21 H Blood Pressure 97/62 L 96/56 L 96/56 L Pulse Oximetry 95 Oxygen Delivery Oxygen Flow Rate Fraction of Inspired Oxygen 10/20/24 08:00 10/20/24 08:00 10/20/24 08:06 Temperature Pulse Rate 78 Respiratory Rate Blood Pressure Pulse Oximetry Oxygen Delivery Room Air Oxygen Flow Rate 1 Fraction of Inspired Oxygen 10/20/24 08:06 10/20/24 08:22 10/20/24 08:22 Temperature 36.4 C Pulse Rate 78 75 Respiratory Rate 20 22 H Blood Pressure 100/53 L Pulse Oximetry 97 Oxygen Delivery Room Air Oxygen Flow Rate Fraction of Inspired Oxygen 10/20/24 08:25 10/20/24 08:30 10/20/24 08:35 Temperature Pulse Rate 74 78 76 Respiratory Rate 20 Blood Pressure 106/70 104/57 L Pulse Oximetry Oxygen Delivery Oxygen Flow Rate Fraction of Inspired Oxygen 10/20/24 08:45 10/20/24 09:00 10/20/24 09:15 Temperature Pulse Rate 72 90 86 Respiratory Rate Blood Pressure 94/57 L 86/58 L 92/53 L Pulse Oximetry Oxygen Delivery Oxygen Flow Rate Fraction of Inspired Oxygen 10/20/24 09:30 10/20/24 09:45 10/20/24 10:00 Temperature Pulse Rate 96 90 89 Respiratory Rate Blood Pressure 87/53 L 87/57 L 89/49 L Pulse Oximetry Oxygen Delivery Oxygen Flow Rate Fraction of Inspired Oxygen 10/20/24 10:00 10/20/24 10:00 10/20/24 10:00 Temperature 37.4 C Pulse Rate 88 88 88 Respiratory Rate 21 H Blood Pressure 89/49 L 89/49 L Pulse Oximetry 97 Oxygen Delivery Oxygen Flow Rate Fraction of Inspired Oxygen 10/20/24 10:15 10/20/24 10:17 10/20/24 10:30 Temperature Pulse Rate 90 94 87 Respiratory Rate Blood Pressure 78/56 L 87/53 L 87/55 L Pulse Oximetry Oxygen Delivery Oxygen Flow Rate Fraction of Inspired Oxygen 10/20/24 10:45 10/20/24 11:00 10/20/24 11:15 Temperature Pulse Rate 80 89 93 Respiratory Rate Blood Pressure 86/57 L 84/54 L 77/53 L Pulse Oximetry Oxygen Delivery Oxygen Flow Rate Fraction of Inspired Oxygen 10/20/24 11:15 10/20/24 11:20 10/20/24 11:30 Temperature Pulse Rate 88 98 88 Respiratory Rate Blood Pressure 77/53 L 86/58 L 87/58 L Pulse Oximetry Oxygen Delivery Oxygen Flow Rate Fraction of Inspired Oxygen 10/20/24 11:45 10/20/24 12:00 10/20/24 12:00 Temperature 37.7 C H Pulse Rate 98 92 92 Respiratory Rate 18 Blood Pressure 86/54 L 85/56 L 85/56 L Pulse Oximetry 97 Oxygen Delivery Oxygen Flow Rate Fraction of Inspired Oxygen 10/20/24 12:00 10/20/24 12:00 10/20/24 12:04 Temperature Pulse Rate 88 91 Respiratory Rate Blood Pressure 85/56 L Pulse Oximetry Oxygen Delivery Room Air Oxygen Flow Rate Fraction of Inspired Oxygen 10/20/24 12:15 10/20/24 12:44 10/20/24 13:30 Temperature 36.6 C Pulse Rate 86 82 74 Respiratory Rate 18 Blood Pressure 100/61 108/64 109/59 L Pulse Oximetry Oxygen Delivery Oxygen Flow Rate Fraction of Inspired Oxygen 10/20/24 14:00 10/20/24 14:00 10/20/24 14:15 Temperature 36.9 C Pulse Rate 78 76 69 Respiratory Rate 19 Blood Pressure 122/64 110/54 L Pulse Oximetry 97 Oxygen Delivery Oxygen Flow Rate Fraction of Inspired Oxygen 10/20/24 14:46 10/20/24 14:46 10/20/24 15:15 Temperature Pulse Rate 80 76 Respiratory Rate 20 Blood Pressure 106/56 L Pulse Oximetry 95 Oxygen Delivery Room Air Oxygen Flow Rate Fraction of Inspired Oxygen 21 Intake/Output Intake/Output: Intake & Output 10/17/24 10/18/24 10/19/24 10/20/24 23:59 23:59 23:59 23:59 Intake Total 599.8 721.8 689.3 560.2 Output Total 0 2600 3000 3500 Balance 599.8 -1878.2 -2310.7 -2939.8 Meds/Results Medications: Active Medications Generic Name Dose Route Start Last Admin Trade Name Freq PRN Reason Stop Dose Admin Acetaminophen 650 mg 10/08/24 20:49 Acetaminophen 650 Mg Suppository RECTAL Q6H PRN Mild Pain (1-3) or Fever Albuterol/Ipratropium 3 ml 10/09/24 14:00 10/20/24 14:42 Ipratropium 0.5 Mg/Albuterol Sulfate 2.5 Mg Ampul.Neb 3 Ml INHALATION 3 ml Q6HRT CESAR Administration Allopurinol 100 mg 10/09/24 08:00 10/20/24 12:42 Allopurinol 100 Mg Tablet PO 100 mg DAILY@0800 CESAR Administration Apixaban 2.5 mg 10/09/24 09:00 10/20/24 07:51 Apixaban 2.5 Mg Tablet PO 2.5 mg Q12HR CESAR Administration Atorvastatin Calcium 10 mg 10/09/24 09:00 10/20/24 12:42 Atorvastatin 10 Mg Tablet PO 10 mg DAILY CESAR Administration Budesonide 0.5 mg 10/09/24 20:00 10/20/24 08:22 Budesonide Respule Neb 0.5 Mg/2 Ml Amp INHALATION 0.5 mg Q12HRT CESAR Administration Dextrose 12.5 gm 10/08/24 22:06 10/17/24 09:53 Dextrose 50% 25 Gm/50 Ml Syringe IV PUSH 12.5 gm PRN PRN Administration Hypoglycemia Protocol Glucagon 1 mg 10/08/24 22:06 Glucagon For Inj 1 Mg Vial IM PRN PRN Hypoglycemia Protocol Glucose 15 gm 10/08/24 22:06 Glucose Oral Gel 15 Gm Of Glucse In 37.5 Gm Tube PO PRN PRN Hypoglycemia Protocol Hydrocortisone Sodium Succinate 50 mg 10/17/24 18:00 10/20/24 05:51 Hydrocortisone Sodium Succinate 100 Mg/2 Ml Vial IV PUSH 10/20/24 17:59 50 mg Q12H CESAR Administration Hydrocortisone Sodium Succinate 50 mg 10/21/24 09:00 Hydrocortisone Sodium Succinate 100 Mg/2 Ml Vial IV PUSH 10/22/24 09:01 DAILY CESAR Dextrose 1,000 mls @ 100 mls/hr 10/08/24 22:06 Dextrose 5% 1,000 Ml IVPB PRN PRN Hypoglycemia Protocol Norepinephrine Bitartrate 8 mg in 250 mls @ 7.5 mls/hr 10/13/24 05:05 10/20/24 15:15 Levophed 8 Mg/D5w 250 Ml IV CONT 4 mcg/min .Q24H CESAR 7.5 mls/hr Titration Protocol 4 MCG/MIN Albumin Human 50 mls @ 999 mls/hr 10/14/24 06:24 10/15/24 17:30 Albutein IVPB 11/13/24 06:23 Infused Q10M PRN Infusion HYPOTENSION Insulin Aspart 4 - 8 units 10/11/24 12:00 10/20/24 11:40 Insulin Aspart (*Bkc) 100 Units/Ml SUB-Q Not Given Q4H CESAR Protocol Insulin Glargine 12 units 10/20/24 09:40 10/20/24 10:14 Insulin Glargine (*Bkc) 100 Units/Ml SUB-Q 12 units DAILY CESAR Administration Midodrine 10 mg 10/20/24 08:00 10/20/24 14:48 Midodrine Hcl 10 Mg Tablet FEED TUBE 10 mg Q6H CESAR Administration Neomycin/Polymyxin/Bacitracin 1 applic 10/17/24 09:00 10/20/24 12:43 Neomycin/Polymyxin/Bacitracin Ointment 15 Gm Tube TOPICAL 1 applic QAM CESAR Administration Pantoprazole Sodium 40 mg 10/09/24 13:45 10/20/24 12:42 Pantoprazole Sodium Iv 40 Mg Vial IV PUSH 40 mg QAM CESAR Administration Polyethylene Glycol 17 gm 10/15/24 10:25 10/20/24 12:42 Polyethylene Glycol 3350 17 Gm Powd.Pack PO 17 gm QAM CESAR Administration Fluticasone/Salmeterol 2 puff 10/09/24 08:00 10/09/24 09:26 Fluticasone/Salmeterol 115-21 Mcg Inhaler 1 Puff INHALATION Not Given Q12HRT CESAR Sevelamer Carbonate 1.6 gm 10/14/24 08:45 10/20/24 12:41 Sevelamer Carbonate 0.8 Gm Oral Powder Packet BY MOUTH 1.6 gm TIDWM CESAR Administration Sodium Chloride 10 ml 10/09/24 14:00 10/20/24 14:48 Central Line Flush IV PUSH 10 ml Q8HR CESAR Administration Sodium Chloride 20 ml 10/09/24 06:24 10/18/24 05:38 Central Line Flush IV PUSH 20 ml PRN PRN Administration after blood draws Sodium Chloride 10 ml 10/20/24 14:00 10/20/24 14:48 Central Line Flush IV PUSH 10 ml Q8HR CESAR Administration Sodium Chloride 10 ml 10/20/24 13:51 Central Line Flush IV PUSH PRN PRN with TPN bag changes Sodium Chloride 20 ml 10/20/24 13:51 Central Line Flush IV PUSH PRN PRN after blood draws Radiology Results: ITS Impressions Pelvis X-Ray 10/08/24 22:22 IMPRESSION: As above. Head CT 10/08/24 23:18 IMPRESSION: No acute intracranial findings. Chest CT 10/08/24 23:27 IMPRESSION: 1. Interstitial thickening in the lower lobes which may indicate pneumonitis. Edema is less likely. 2. Cardiomegaly. 3. Cholelithiasis 4. Splenic cysts unchanged. Abdomen X-Ray 10/13/24 15:22 IMPRESSION: Nasogastric tube in good position and ready for immediate use. Modified Barium Swallow 10/18/24 17:03 IMPRESSION: Oropharyngeal dysphagia including laryngeal penetration with aspiration. Please correlate with speech pathologist findings and specific feeding recommendations. Chest X-Ray 10/20/24 13:56 IMPRESSION: 1. Right upper extremity PICC line tip near the superior cavoatrial junction. 2. Persistent opacities in the right lower lung zone which could represent atelectasis or pneumonia. Labs Labs: Laboratory Results - last 24 hr 10/19/24 10/19/24 10/19/24 16:39 16:40 21:46 WBC RBC Hgb Hct MCV MCH MCHC RDW Plt Count MPV Immature Gran % (Auto) Neut % (Auto) Lymph % (Auto) [place] % (Auto) Eos % (Auto) Baso % (Auto) Lymph # (Auto) [place] # (Auto) Eos # (Auto) Baso # (Auto) Abs Immat Gran (auto) Absolute Neuts (auto) Absolute Nucleated RBC Band Neutrophils % Nucleated RBC % Platelet Estimate Target Cells Ovalocytes [place] Cells Schistocytes APTT 102.8 H Sodium Potassium Chloride Carbon Dioxide Anion Gap BUN Creatinine Estim Creat Clear Calc Estimated GFR Glucose POC Capillary Glucose 227 H 233 H Calcium Phosphorus Magnesium Total Bilirubin AST ALT Alkaline Phosphatase Total Protein Albumin 10/20/24 10/20/24 10/20/24 00:08 04:22 07:06 WBC 10.9 H RBC 3.90 L Hgb 12.1 L Hct 36.9 L MCV 94.6 MCH 31.0 MCHC 32.8 RDW 17.7 H Plt Count 138 L MPV 11.5 H Immature Gran % (Auto) 0.6 H Neut % (Auto) 82.0 H Lymph % (Auto) 4.8 L [place] % (Auto) 12.5 H Eos % (Auto) 0.0 Baso % (Auto) 0.1 L Lymph # (Auto) 0.52 L [place] # (Auto) 1.4 H Eos # (Auto) 0.0 Baso # (Auto) 0.0 Abs Immat Gran (auto) 0.06 H Absolute Neuts (auto) 8.9 H Absolute Nucleated RBC 0.000 Band Neutrophils % 0 Nucleated RBC % 0.0 Platelet Estimate Slightly decreased Target Cells 1+ Ovalocytes 1+ [place] Cells 1+ Schistocytes None seen APTT Sodium 135 L Potassium 4.8 Chloride 92 L Carbon Dioxide 24 Anion Gap 19 H BUN 101 H D Creatinine 5.80 H Estim Creat Clear Calc 9 Estimated GFR 9 L Glucose 164 H POC Capillary Glucose 220 H 196 H Calcium 7.7 L Phosphorus 4.3 Magnesium 2.5 H Total Bilirubin 1.8 H AST 31 ALT 19 Alkaline Phosphatase 88 Total Protein 7.0 Albumin 3.8 10/20/24 10/20/24 11:33 15:51 WBC RBC Hgb Hct MCV MCH MCHC RDW Plt Count MPV Immature Gran % (Auto) Neut % (Auto) Lymph % (Auto) [place] % (Auto) Eos % (Auto) Baso % (Auto) Lymph # (Auto) [place] # (Auto) Eos # (Auto) Baso # (Auto) Abs Immat Gran (auto) Absolute Neuts (auto) Absolute Nucleated RBC Band Neutrophils % Nucleated RBC % Platelet Estimate Target Cells Ovalocytes [place] Cells Schistocytes APTT Sodium Potassium Chloride Carbon Dioxide Anion Gap BUN Creatinine Estim Creat Clear Calc Estimated GFR Glucose POC Capillary Glucose 160 H 237 H Calcium Phosphorus Magnesium Total Bilirubin AST ALT Alkaline Phosphatase Total Protein Albumin Quality VTE Prophylaxis VTE prophylaxis: mechanical ordered
[2024-10-20 21:48] LABS: Glucose Point of Care 197 mg/dl (65-105)
[2024-10-20 23:54] LABS: Glucose Point of Care 202 mg/dl (65-105)
[2024-10-21] VITALS (35 sets, daily range): BP systolic 102–124; BP diastolic 49–67; PULSE 70–92; RESP 16–24; TEMP 0–37.4; O2SAT 92–97
[2024-10-21] MEDS: IPRATROPIUM 0.5 MG/ALBUTEROL SULFATE 2.5 MG AMPUL.NEB 3 ML INHALATION ×4 (02:19→20:45)
[2024-10-21] MEDS: MIDODRINE HCL 10 MG TABLET FEED TUBE ×4 (03:44→20:33)
[2024-10-21 04:56] LABS: Basophils Percent Auto 0.1 % (0.2-1.2); Eosinophils Percent Auto 0.2 % (0-4.4); Hemoglobin 11.8 g/dL (14.0-18.0); Immature Granulocyte Absolute 0.09 K/mm3 (0.00-0.031); Immature Granulocyte Percent A 0.9 % (0-0.5); Lymphocytes Absolute Auto 0.57 K/mm3 (0.9-3.2); Lymphocytes Percent Auto 5.9 % (18.3-44.2); Mean Corpuscular HGB Conc 32.8 g/dl (32-36); Mean Corpuscular Hemoglobin 31.7 pg (26-34); Mean Corpuscular Volume 96.8 fl (80-100); Mean Platelet Volume 10.5 fl (7.4-10.4); Monocytes Absolute Auto 1.4 K/mm3 (0.1-0.6); Monocytes Percent Auto 14.5 % (2.6-8.5); Neutrophils Absolute Auto 7.5 K/mm3 (1.3-6.7); Neutrophils Percent Auto 78.4 % (45.5-73.1); Platelet Count Result 118 k/mm3 (150-375); Red Blood Count 3.72 M/mm3 (4.6-6.20); Red Cell Distribution Width 18.2 % (11.5-14.5); White Blood Count 9.6 K/mm3 (4.5-10.0)
[2024-10-21 05:14] LABS: Alanine Aminotransferase 20 U/L (6-50); Albumin Level 3.7 g/dL (3.5-5.1); Alkaline Phosphatase 122 U/L (38-126); Anion Gap 13 mmol/L (4-12); Aspartate Amino Transferase 29 U/L (17-59); Bilirubin,Total 1.9 mg/dL (0.2-1.3); Blood Urea Nitrogen 69 mg/dL (9-20); Carbon Dioxide 30 mmol/L (22-30); Chloride 91 mmol/L (98-107); Estimated CRCL calculation 12 ml/min; Estimated Glomerular Filt Rate 12; Glucose 222 mg/dL (65-110); Magnesium 2.3 mg/dL (1.6-2.3); Phosphorus 2.7 mg/dL (2.5-4.5); Potassium 4.5 mmol/L (3.4-5.0); Sodium 134 mmol/L (137-145)
[2024-10-21] MEDS: CENTRAL LINE FLUSH 10 ML IV PUSH ×6 (06:07→20:33)
[2024-10-21] MEDS: INSULIN ASPART (*BKC) 100 UNITS/ML SUB-Q ×2 (06:07→16:56)
[2024-10-21] MEDS: BUDESONIDE RESPULE NEB 0.5 MG/2 ML AMP INHALATION ×2 (08:09→20:47)
[2024-10-21 08:22] LABS: Glucose Point of Care 126 mg/dl (65-105)
[2024-10-21] MEDS: PANTOPRAZOLE SODIUM IV 40 MG VIAL IV PUSH (09:33)
[2024-10-21] MEDS: SEVELAMER CARBONATE 0.8 GM ORAL POWDER PACKET 1.6 GM BY MOUTH ×3 (09:33→16:56)
[2024-10-21] MEDS: polyethylene glycoL 3350 17 GM POWD.PACK PO (09:33)
[2024-10-21] MEDS: APIXABAN 2.5 MG TABLET PO ×2 (09:34→20:33)
[2024-10-21] MEDS: ATORVASTATIN 10 MG TABLET PO (09:34)
[2024-10-21] MEDS: allopurinoL 100 MG TABLET PO (09:34)
[2024-10-21] MEDS: NEOMYCIN/POLYMYXIN/BACITRACIN OINTMENT 15 GM TUBE 1 APPLIC TOPICAL (09:34)
[2024-10-21] MEDS: HYDROCORTISONE SODIUM SUCCINATE 100 MG/2 ML VIAL 50 MG IV PUSH (09:34)
[2024-10-21] MEDS: INSULIN GLARGINE (*BKC) 100 UNITS/ML 16 UNITS SUB-Q (09:35)
--- NOTE | 2024-10-21 10:45 | PCFNICU ---
ICU Rounding Note: Pt current nutrition is Nepro at 40 ml/hr with Prosource BID. Last recorded weight is 85.7 kg, down from 103.6 kg on admit. Bowel Motility: Last reported BM 10/12. Miralax has been ordered. Labs Reviewed: Glu 222,BUN 69, NA 134, GFR 12, Cr 4.53 Meds Noted: Miralax, NovoLog, ,Eliquis, Protonix Skin: WNL Additional Notes: Patient remains on Dobbhoff feedings of Nepro at 40 ml/hr and tolerating per nursing. Protein Modulars of Prosource BID providing an additional 160 kcal and 40 gm protein. Flush 30 ml q 4 hours. Dialysis planned for today. Agree with diet orders. Following daily in ICU rounds. Monitoring intakes, weights, labs, swallowing evaluation, diet orders every Friday and Friday.
--- NOTE | 2024-10-21 11:41 | P.PNINT_ITS ---
Progress Note: A&P Assessment and Plan (1) Respiratory failure: Code(s): J96.90 - Respiratory failure, unspecified, unspecified whether with hypoxia or hypercapnia Status: Acute Assessment and Plan: Acute respiratory failure likely related to pneumonia, altered mental status, airway protection -10/08: Intubated -10/16: Extubated -continue bronchodilators and Pulmicort -chest x-ray reviewed, will have respiratory therapist encourage incentive spirometry, EzPAP -10/17 pt failed her bedside swallow -10/18: Failed modified barium swallow -10/19: appreciate IR placing Dobbhoff tube, patient started on tube feeds and tolerating -PT/OT to continue to follow, up in chair, significant weakness (2) Septic shock: Code(s): A41.9 - Sepsis, unspecified organism; R65.21 - Severe sepsis with septic shock Status: Acute Assessment and Plan: Patient presented with altered mental status, hypotension, lactic acidosis -septic shock likely related to bacteremia, bilateral pneumonia along with influenza -status post azithromycin, ceftriaxone and vancomycin Remains off all antibiotics -10/08: Blood cultures growing strep mitis -10/10 repeat set of blood culture sent and negative till now -TTE and ROBERT are negative for evidence of valve vegetations -patient remains on Levophed but off of epinephrine and vasopressin, maintain SBP >90 mmHg. (patient's blood pressure is normally runs low according to his family) -weaning hydrocortisone -patient on midodrine, currently NPO after extubation, patient received above tube today, will restart midodrine after the 10/18: Still requiring Levophed, afebrile, WBC trending down. 10/18: Blood cultures negative x2 10/20: Levophed being weaned, increased midodrine to q.6 hours. 10/21: Off Levophed since 8:30 p.m. on 10/20/2024 (3) Bacteremia: Code(s): R78.81 - Bacteremia Status: Acute Assessment and Plan: 10/08: Blood cultures growing strep mitis group 10/10 repeat set of blood culture sent and negative till now -continue antibiotics as above TTE as below ROBERT negative for evidence of vegetation (4) Influenza A: Code(s): J10.1 - Influenza due to other identified influenza virus with other respiratory manifestations Status: Acute Assessment and Plan: Completed a course of renally dosed Tamiflu (5) Pneumonia: Code(s): J18.9 - Pneumonia, unspecified organism Status: Acute Assessment and Plan: Chest x-ray showed pneumonia, CT chest showed pneumonitis, -off all antibiotic (6) Altered mental status: Code(s): R41.82 - Altered mental status, unspecified Status: Acute Assessment and Plan: Currently intubated and sedated Head CT was negative for any acute changes at the time presentation (7) End-stage renal disease on hemodialysis: Code(s): N18.6 - End stage renal disease; Z99.2 - Dependence on renal dialysis Status: Acute Assessment and Plan: End-stage renal disease on dialysis (M, W, F) -dialysis per Nephrology. (8) Diabetes: Qualifiers: Diabetes mellitus type: type 2 Diabetes mellitus long term care administrator insulin use: without snf use Diabetes mellitus complication status: with kidney complications Diabetes mellitus complication detail: with chronic kidney disease Chronic kidney disease stage: on chronic dialysis Qualified Code(s): E11.22 - Type 2 diabetes mellitus with diabetic chronic kidney disease; N18.6 - End stage renal disease; Z99.2 - Dependence on renal dialysis Code(s): E11.9 - Type 2 diabetes mellitus without complications Status: Chronic Assessment and Plan: Continue current sliding scale and -Lantus discontinued as patient NPO (9) Atrial fibrillation: Code(s): I48.91 - Unspecified atrial fibrillation Status: Acute Assessment and Plan: Patient has a history of atrial fibrillation, remains in AFib, rate controlled -has been on apixaban, post extubation was started heparin infusion and apixaban was held as he did not have and OG/NG tube -patient failed his bedside swallow and modified barium swallow -10/19/2024 Dobbhoff tube was inserted by IR, apixaban was restarted and heparin infusion was discontinued Plan DVT prophylaxis: Restarted Eliquis on 10/19 after patient got his Dobbhoff tube placed, off heparin infusion Stress ulcer prophylaxis: Protonix Nutrition: Tube feeds through Dobbhoff tube. ( Patient failed bedside swallow evaluation and modified barium swallow) Code Status: Full code Critical Care Time Spent: 32 minutes Discussed with patient's son and spouse and updated them with patient's condition and plan of care. I answered all the questions Due to a high probability of clinically significant, life threatening deterioration, the patient required my highest level of preparedness to intervene emergently and I personally spent this critical care time directly and personally managing the patient. This critical care time included obtaining a history; examining the patient; pulse oximetry; ordering and review of studies; arranging urgent treatment with development of a management plan; evaluation of patient's response to treatment; frequent reassessment; and discussions with other providers. It was exclusive of separately billable procedures and treating other patients and teaching time. Please see Assessment and Plan section and the rest of the note for further information on patient assessment and treatment This dictation may have been done utilizing a voice recognition system. Attempts have been made to correct errors. However, there may be uncorrected grammatical, spelling, and recognitions errors present. Subjective Date/time seen: 10/21/24 11:41 Interval history: Reason for consult: Altered mental status, generalized weakness, hypotension, shock, acute respiratory failure, Gram-positive cocci in chains bacteremia, influenza A positive, MRSA screen positive 10/08: Intubated 10/16: Extubated 10/19: Double off tube inserted by IR 10/20; PICC line placed, removed femoral central line 10/21/2024: Patient seen and examined the ICU, is on room air, with adequate O2 sats. Patient is awake, alert, able to give me one-word answers. Follows simple commands in all extremities, still continues to remain weak. Patient had dialysis yesterday with 3500 mL in fluid removed. Afebrile. OFF Levophed. Patient receiving tube feeds and tolerating via a Dobbhoff w Patient denies any chest pain, shortness of breath, abdominal pain Review of Systems Review of Systems: All systems reviewed & are unremarkable except as noted in HPI and below Exam Narrative: General: Patient on room air, awake, in no acute distress HEENT:? Pupils equal and reactive bilaterally, Dobhoff tube in place Neck:? Supple Respiratory:? Coarse breath sounds bilaterally, decreased at bases, no wheezing, adequate air entry Cardiac:? Irregularly irregular, rate controlled Abdomen:? Soft, nontender, nondistended, protuberant, hypoactive bowel sounds Extremities:? Bilateral lower extremity edema is improved significantly, palpable pedal pulses Neuro:? Patient is awake, alert, nods to questions, answers yes or no to questions. Follows simple commands and upper extremities but not in lower extremities, generalized weakness Skin:? Multiple bruising noted upper and lower extremities Psych:? Unable to assess at this time Objective Data Vital Signs Vital Signs: Vital Signs - 24 hr 10/20/24 11:45 10/20/24 12:00 10/20/24 12:00 Temperature 99.9 F H Pulse Rate 98 92 92 Respiratory Rate 18 Blood Pressure 86/54 L 85/56 L 85/56 L Pulse Oximetry 97 Oxygen Delivery Fraction of Inspired Oxygen 10/20/24 12:00 10/20/24 12:00 10/20/24 12:04 Temperature Pulse Rate 88 91 Respiratory Rate Blood Pressure 85/56 L Pulse Oximetry Oxygen Delivery Room Air Fraction of Inspired Oxygen 10/20/24 12:15 10/20/24 12:44 10/20/24 13:30 Temperature 97.8 F Pulse Rate 86 82 74 Respiratory Rate 18 Blood Pressure 100/61 108/64 109/59 L Pulse Oximetry Oxygen Delivery Fraction of Inspired Oxygen 10/20/24 14:00 10/20/24 14:00 10/20/24 14:15 Temperature 98.5 F Pulse Rate 78 76 69 Respiratory Rate 19 Blood Pressure 122/64 110/54 L Pulse Oximetry 97 Oxygen Delivery Fraction of Inspired Oxygen 10/20/24 14:46 10/20/24 14:46 10/20/24 15:15 Temperature Pulse Rate 80 76 Respiratory Rate 20 Blood Pressure 106/56 L Pulse Oximetry 95 Oxygen Delivery Room Air Fraction of Inspired Oxygen 21 10/20/24 16:00 10/20/24 16:00 10/20/24 16:00 Temperature 100.2 F H Pulse Rate 87 81 Respiratory Rate 20 Blood Pressure 100/56 L 100/56 L Pulse Oximetry 94 Oxygen Delivery Room Air Fraction of Inspired Oxygen 10/20/24 16:00 10/20/24 16:33 10/20/24 18:00 Temperature Pulse Rate 79 75 75 Respiratory Rate Blood Pressure 97/59 L 95/55 L Pulse Oximetry Oxygen Delivery Fraction of Inspired Oxygen 10/20/24 18:00 10/20/24 18:00 10/20/24 18:59 Temperature 98.6 F Pulse Rate 76 77 77 Respiratory Rate 19 Blood Pressure 93/54 L 97/57 L Pulse Oximetry 95 Oxygen Delivery Fraction of Inspired Oxygen 10/20/24 20:00 10/20/24 20:00 10/20/24 20:00 Temperature 98.9 F Pulse Rate 77 83 83 Respiratory Rate 16 24 H Blood Pressure 96/56 L 96/56 L Pulse Oximetry 92 92 Oxygen Delivery Room Air Fraction of Inspired Oxygen 10/20/24 20:00 10/20/24 20:06 10/20/24 20:07 Temperature Pulse Rate 82 78 Respiratory Rate 18 Blood Pressure Pulse Oximetry 92 Oxygen Delivery Room Air Fraction of Inspired Oxygen 10/20/24 20:21 10/20/24 20:30 10/20/24 22:00 Temperature Pulse Rate 77 83 89 Respiratory Rate 16 18 Blood Pressure 96/55 L 96/53 L Pulse Oximetry 92 Oxygen Delivery Fraction of Inspired Oxygen 10/20/24 22:00 10/20/24 22:00 10/21/24 00:00 Temperature Pulse Rate 89 88 87 Respiratory Rate Blood Pressure 96/53 L 102/57 L Pulse Oximetry Oxygen Delivery Fraction of Inspired Oxygen 10/21/24 00:00 10/21/24 00:00 10/21/24 00:00 Temperature 99.4 F Pulse Rate 92 88 88 Respiratory Rate 18 17 Blood Pressure 114/63 Pulse Oximetry 94 94 Oxygen Delivery Room Air Fraction of Inspired Oxygen 10/21/24 02:00 10/21/24 02:00 10/21/24 02:20 Temperature Pulse Rate 87 86 74 Respiratory Rate 20 19 Blood Pressure 107/57 L Pulse Oximetry 93 Oxygen Delivery Fraction of Inspired Oxygen 10/21/24 02:29 10/21/24 04:00 10/21/24 04:00 Temperature Pulse Rate 77 80 80 Respiratory Rate 20 24 H Blood Pressure 108/54 L Pulse Oximetry 92 Oxygen Delivery Fraction of Inspired Oxygen 10/21/24 04:00 10/21/24 06:00 10/21/24 06:00 Temperature Pulse Rate 80 84 80 Respiratory Rate 24 H 20 Blood Pressure 114/52 L Pulse Oximetry 94 97 Oxygen Delivery Room Air Fraction of Inspired Oxygen 10/21/24 08:00 10/21/24 08:00 10/21/24 08:00 Temperature 98.8 F Pulse Rate 77 79 Respiratory Rate 19 Blood Pressure 105/49 L Pulse Oximetry 97 95 Oxygen Delivery Room Air Fraction of Inspired Oxygen 10/21/24 08:10 10/21/24 08:10 10/21/24 08:24 Temperature Pulse Rate 81 80 Respiratory Rate 18 18 Blood Pressure Pulse Oximetry 97 Oxygen Delivery Room Air Fraction of Inspired Oxygen 10/21/24 10:00 10/21/24 10:00 Temperature Pulse Rate 82 82 Respiratory Rate 19 Blood Pressure 109/59 L Pulse Oximetry 96 Oxygen Delivery Fraction of Inspired Oxygen Intake/Output Intake/Output: Intake & Output 10/18/24 10/19/24 10/20/24 10/21/24 23:59 23:59 23:59 23:59 Intake Total 721.8 689.3 580.8 529 Output Total 2600 3000 3500 0 Balance -1878.2 -2310.7 -2919.2 529 Meds/Results Medications: Active Medications Generic Name Dose Route Start Last Admin Trade Name Freq PRN Reason Stop Dose Admin Acetaminophen 650 mg 10/08/24 20:49 Acetaminophen 650 Mg Suppository RECTAL Q6H PRN Mild Pain (1-3) or Fever Albuterol/Ipratropium 3 ml 10/09/24 14:00 10/21/24 08:09 Ipratropium 0.5 Mg/Albuterol Sulfate 2.5 Mg Ampul.Neb 3 Ml INHALATION 3 ml Q6HRT CESAR Administration Allopurinol 100 mg 10/09/24 08:00 10/21/24 09:34 Allopurinol 100 Mg Tablet PO 100 mg DAILY@0800 CESAR Administration Apixaban 2.5 mg 10/09/24 09:00 10/21/24 09:34 Apixaban 2.5 Mg Tablet PO 2.5 mg Q12HR CESAR Administration Atorvastatin Calcium 10 mg 10/09/24 09:00 10/21/24 09:34 Atorvastatin 10 Mg Tablet PO 10 mg DAILY CESAR Administration Budesonide 0.5 mg 10/09/24 20:00 10/21/24 08:09 Budesonide Respule Neb 0.5 Mg/2 Ml Amp INHALATION 0.5 mg Q12HRT CESAR Administration Dextrose 12.5 gm 10/08/24 22:06 10/17/24 09:53 Dextrose 50% 25 Gm/50 Ml Syringe IV PUSH 12.5 gm PRN PRN Administration Hypoglycemia Protocol Glucagon 1 mg 10/08/24 22:06 Glucagon For Inj 1 Mg Vial IM PRN PRN Hypoglycemia Protocol Glucose 15 gm 10/08/24 22:06 Glucose Oral Gel 15 Gm Of Glucse In 37.5 Gm Tube PO PRN PRN Hypoglycemia Protocol Hydrocortisone Sodium Succinate 50 mg 10/21/24 09:00 10/21/24 09:34 Hydrocortisone Sodium Succinate 100 Mg/2 Ml Vial IV PUSH 10/22/24 09:01 50 mg DAILY CESAR Administration Dextrose 1,000 mls @ 100 mls/hr 10/08/24 22:06 Dextrose 5% 1,000 Ml IVPB PRN PRN Hypoglycemia Protocol Norepinephrine Bitartrate 8 mg in 250 mls @ 1.875 mls/hr 10/13/24 05:05 10/21/24 00:00 Levophed 8 Mg/D5w 250 Ml IV CONT Infused .Q24H CESAR Titration Protocol 1 MCG/MIN Albumin Human 50 mls @ 999 mls/hr 10/14/24 06:24 10/15/24 17:30 Albutein IVPB 11/13/24 06:23 Infused Q10M PRN Infusion HYPOTENSION Insulin Aspart 4 - 8 units 10/11/24 12:00 10/21/24 09:34 Insulin Aspart (*Bkc) 100 Units/Ml SUB-Q Not Given Q4H CESAR Protocol Insulin Glargine 16 units 10/21/24 09:00 10/21/24 09:35 Insulin Glargine (*Bkc) 100 Units/Ml SUB-Q 16 units DAILY CESAR Administration Midodrine 10 mg 10/20/24 08:00 10/21/24 09:34 Midodrine Hcl 10 Mg Tablet FEED TUBE 10 mg Q6H CESAR Administration Neomycin/Polymyxin/Bacitracin 1 applic 10/17/24 09:00 10/21/24 09:34 Neomycin/Polymyxin/Bacitracin Ointment 15 Gm Tube TOPICAL 1 applic QAM CESAR Administration Pantoprazole Sodium 40 mg 10/09/24 13:45 10/21/24 09:33 Pantoprazole Sodium Iv 40 Mg Vial IV PUSH 40 mg QAM CESAR Administration Polyethylene Glycol 17 gm 10/15/24 10:25 10/21/24 09:33 Polyethylene Glycol 3350 17 Gm Powd.Pack PO 17 gm QAM CESAR Administration Fluticasone/Salmeterol 2 puff 10/09/24 08:00 10/09/24 09:26 Fluticasone/Salmeterol 115-21 Mcg Inhaler 1 Puff INHALATION Not Given Q12HRT CESAR Sevelamer Carbonate 1.6 gm 10/14/24 08:45 10/21/24 09:33 Sevelamer Carbonate 0.8 Gm Oral Powder Packet BY MOUTH 1.6 gm TIDWM CESAR Administration Sodium Chloride 10 ml 10/09/24 14:00 10/21/24 06:07 Central Line Flush IV PUSH 10 ml Q8HR CESAR Administration Sodium Chloride 20 ml 10/09/24 06:24 10/18/24 05:38 Central Line Flush IV PUSH 20 ml PRN PRN Administration after blood draws Sodium Chloride 10 ml 10/20/24 14:00 10/21/24 06:07 Central Line Flush IV PUSH 10 ml Q8HR CESAR Administration Sodium Chloride 10 ml 10/20/24 13:51 Central Line Flush IV PUSH PRN PRN with TPN bag changes Sodium Chloride 20 ml 10/20/24 13:51 Central Line Flush IV PUSH PRN PRN after blood draws Radiology Results: ITS Impressions Pelvis X-Ray 10/08/24 22:22 IMPRESSION: As above. Head CT 10/08/24 23:18 IMPRESSION: No acute intracranial findings. Chest CT 10/08/24 23:27 IMPRESSION: 1. Interstitial thickening in the lower lobes which may indicate pneumonitis. Edema is less likely. 2. Cardiomegaly. 3. Cholelithiasis 4. Splenic cysts unchanged. Abdomen X-Ray 10/13/24 15:22 IMPRESSION: Nasogastric tube in good position and ready for immediate use. Modified Barium Swallow 10/18/24 17:03 IMPRESSION: Oropharyngeal dysphagia including laryngeal penetration with aspiration. Please correlate with speech pathologist findings and specific feeding recommendations. Chest X-Ray 10/20/24 13:56 IMPRESSION: 1. Right upper extremity PICC line tip near the superior cavoatrial junction. 2. Persistent opacities in the right lower lung zone which could represent atelectasis or pneumonia. Labs Labs: Laboratory Results - last 24 hr 10/20/24 10/20/24 10/20/24 07:06 11:33 15:51 WBC RBC Hgb Hct MCV MCH MCHC RDW Plt Count MPV Immature Gran % (Auto) Neut % (Auto) Lymph % (Auto) [place] % (Auto) Eos % (Auto) Baso % (Auto) Lymph # (Auto) [place] # (Auto) Eos # (Auto) Baso # (Auto) Abs Immat Gran (auto) Absolute Neuts (auto) Absolute Nucleated RBC Nucleated RBC % Sodium Potassium Chloride Carbon Dioxide Anion Gap BUN Creatinine Estim Creat Clear Calc Estimated GFR Glucose POC Capillary Glucose 196 H 160 H 237 H Calcium Phosphorus Magnesium Total Bilirubin AST ALT Alkaline Phosphatase Total Protein Albumin 10/20/24 10/20/24 10/21/24 21:45 23:49 04:39 WBC 9.6 RBC 3.72 L Hgb 11.8 L Hct 36.0 L MCV 96.8 MCH 31.7 MCHC 32.8 RDW 18.2 H Plt Count 118 L MPV 10.5 H Immature Gran % (Auto) 0.9 H Neut % (Auto) 78.4 H Lymph % (Auto) 5.9 L [place] % (Auto) 14.5 H Eos % (Auto) 0.2 Baso % (Auto) 0.1 L Lymph # (Auto) 0.57 L [place] # (Auto) 1.4 H Eos # (Auto) 0.0 Baso # (Auto) 0.0 Abs Immat Gran (auto) 0.09 H Absolute Neuts (auto) 7.5 H Absolute Nucleated RBC 0.000 Nucleated RBC % 0.0 Sodium Potassium Chloride Carbon Dioxide Anion Gap BUN Creatinine Estim Creat Clear Calc Estimated GFR Glucose POC Capillary Glucose 197 H 202 H Calcium Phosphorus Magnesium Total Bilirubin AST ALT Alkaline Phosphatase Total Protein Albumin 10/21/24 10/21/24 04:40 08:06 WBC RBC Hgb Hct MCV MCH MCHC RDW Plt Count MPV Immature Gran % (Auto) Neut % (Auto) Lymph % (Auto) [place] % (Auto) Eos % (Auto) Baso % (Auto) Lymph # (Auto) [place] # (Auto) Eos # (Auto) Baso # (Auto) Abs Immat Gran (auto) Absolute Neuts (auto) Absolute Nucleated RBC Nucleated RBC % Sodium 134 L Potassium 4.5 Chloride 91 L Carbon Dioxide 30 Anion Gap 13 H BUN 69 H D Creatinine 4.53 H Estim Creat Clear Calc 12 Estimated GFR 12 L Glucose 222 H POC Capillary Glucose 126 H Calcium 8.0 L Phosphorus 2.7 Magnesium 2.3 Total Bilirubin 1.9 H AST 29 ALT 20 Alkaline Phosphatase 122 Total Protein 7.0 Albumin 3.7 Quality VTE Prophylaxis VTE prophylaxis: mechanical ordered
[2024-10-21 12:40] LABS: Glucose Point of Care 179 mg/dl (65-105)
--- NOTE | 2024-10-21 13:46 | P.PNNP_ITS ---
Progress Note: A&P Assessment and Plan (1) End-stage renal disease (ESRD): Code(s): N18.6 - End stage renal disease Status: Chronic Assessment and Plan: * HD is to be done soon * He is doing well today in regards to breathing. * Blood pressure is Doing pretty well. now in the 110s off levophed. * continue to remove fluid as calderon (2) Septic shock: Code(s): A41.9 - Sepsis, unspecified organism; R65.21 - Severe sepsis with septic shock Status: Acute Assessment and Plan: * recent cultures negative. * Blood pressure is better on less Levophed (3) Acute respiratory failure: Code(s): J96.00 - Acute respiratory failure, unspecified whether with hypoxia or hypercapnia Status: Acute Assessment and Plan: * multifactorial: * pneumonia * altered mental status * need for airway protection * fluid * off the ventilator. * breathing okay right now off oxygen * Will try to take off as much fluid on dialysis today (4) Bacteremia: Code(s): R78.81 - Bacteremia Status: Acute Assessment and Plan: * on atbs. (5) Pneumonia: Code(s): J18.9 - Pneumonia, unspecified organism Status: Acute Assessment and Plan: * suggested by recent imaging (CXR + CT scan) * on ceftriaxone (6) Influenza A: Code(s): J10.1 - Influenza due to other identified influenza virus with other respiratory manifestations Status: Acute Assessment and Plan: * as noted by testing in ER * completed course of Tamiflu (7) Altered mental status: Code(s): R41.82 - Altered mental status, unspecified Status: Acute Assessment and Plan: * this seems gradually better but stiol very weak. (8) Anemia: Qualifiers: Anemia type: unspecified type Qualified Code(s): D64.9 - Anemia, unspecified Code(s): D64.9 - Anemia, unspecified Status: Chronic Assessment and Plan: * due to ESRD * hold Retacrit since Hgb > 11 * Hb 11.8 today (9) Diabetes: Qualifiers: Chronic kidney disease stage: on chronic dialysis Diabetes mellitus complication detail: with chronic kidney disease Diabetes mellitus complication status: with kidney complications Diabetes mellitus assisted insulin use: without assisted use Diabetes mellitus type: type 2 Qualified Code(s): E11.22 - Type 2 diabetes mellitus with diabetic chronic kidney disease; N18.6 - End stage renal disease; Z99.2 - Dependence on renal dialysis Code(s): E11.9 - Type 2 diabetes mellitus without complications Status: Chronic Assessment and Plan: * follow accu-cheks * 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 we discussed the case sitting up in a chair. no cp or sob bery weak; he will have DUF soon Exam Narrative: General: pleasant male sitting in a chair weak but in no acute distress Heart: IRRR, normal S1 and S2; no rub Lungs: Symmetric and fairly clear Abdomen: Bowel sounds positive and soft Extremities:1+ presacral edema with chronic venous stasis changes in the shins Skin: no rash or sq nodules Objective Data Vital Signs Vital Signs: Vital Signs - 24 hr 10/20/24 14:00 10/20/24 14:00 10/20/24 14:15 Temperature 98.5 F Pulse Rate 78 76 69 Respiratory Rate 19 Blood Pressure 122/64 110/54 L Pulse Oximetry 97 Oxygen Delivery Fraction of Inspired Oxygen 10/20/24 14:46 10/20/24 14:46 10/20/24 15:15 Temperature Pulse Rate 80 76 Respiratory Rate 20 Blood Pressure 106/56 L Pulse Oximetry 95 Oxygen Delivery Room Air Fraction of Inspired Oxygen 21 10/20/24 16:00 10/20/24 16:00 10/20/24 16:00 Temperature 100.2 F H Pulse Rate 87 81 Respiratory Rate 20 Blood Pressure 100/56 L 100/56 L Pulse Oximetry 94 Oxygen Delivery Room Air Fraction of Inspired Oxygen 10/20/24 16:00 10/20/24 16:33 10/20/24 18:00 Temperature Pulse Rate 79 75 75 Respiratory Rate Blood Pressure 97/59 L 95/55 L Pulse Oximetry Oxygen Delivery Fraction of Inspired Oxygen 10/20/24 18:00 10/20/24 18:00 10/20/24 18:59 Temperature 98.6 F Pulse Rate 76 77 77 Respiratory Rate 19 Blood Pressure 93/54 L 97/57 L Pulse Oximetry 95 Oxygen Delivery Fraction of Inspired Oxygen 10/20/24 20:00 10/20/24 20:00 10/20/24 20:00 Temperature 98.9 F Pulse Rate 77 83 83 Respiratory Rate 16 24 H Blood Pressure 96/56 L 96/56 L Pulse Oximetry 92 92 Oxygen Delivery Room Air Fraction of Inspired Oxygen 10/20/24 20:00 10/20/24 20:06 10/20/24 20:07 Temperature Pulse Rate 82 78 Respiratory Rate 18 Blood Pressure Pulse Oximetry 92 Oxygen Delivery Room Air Fraction of Inspired Oxygen 10/20/24 20:21 10/20/24 20:30 10/20/24 22:00 Temperature Pulse Rate 77 83 89 Respiratory Rate 16 18 Blood Pressure 96/55 L 96/53 L Pulse Oximetry 92 Oxygen Delivery Fraction of Inspired Oxygen 10/20/24 22:00 10/20/24 22:00 10/21/24 00:00 Temperature Pulse Rate 89 88 87 Respiratory Rate Blood Pressure 96/53 L 102/57 L Pulse Oximetry Oxygen Delivery Fraction of Inspired Oxygen 10/21/24 00:00 10/21/24 00:00 10/21/24 00:00 Temperature 99.4 F Pulse Rate 92 88 88 Respiratory Rate 18 17 Blood Pressure 114/63 Pulse Oximetry 94 94 Oxygen Delivery Room Air Fraction of Inspired Oxygen 10/21/24 02:00 10/21/24 02:00 10/21/24 02:20 Temperature Pulse Rate 87 86 74 Respiratory Rate 20 19 Blood Pressure 107/57 L Pulse Oximetry 93 Oxygen Delivery Fraction of Inspired Oxygen 10/21/24 02:29 10/21/24 04:00 10/21/24 04:00 Temperature Pulse Rate 77 80 80 Respiratory Rate 20 24 H Blood Pressure 108/54 L Pulse Oximetry 92 Oxygen Delivery Fraction of Inspired Oxygen 10/21/24 04:00 10/21/24 06:00 10/21/24 06:00 Temperature Pulse Rate 80 84 80 Respiratory Rate 24 H 20 Blood Pressure 114/52 L Pulse Oximetry 94 97 Oxygen Delivery Room Air Fraction of Inspired Oxygen 10/21/24 08:00 10/21/24 08:00 10/21/24 08:00 Temperature 98.8 F Pulse Rate 77 79 Respiratory Rate 19 Blood Pressure 105/49 L Pulse Oximetry 97 95 Oxygen Delivery Room Air Fraction of Inspired Oxygen 10/21/24 08:10 10/21/24 08:10 10/21/24 08:24 Temperature Pulse Rate 81 80 Respiratory Rate 18 18 Blood Pressure Pulse Oximetry 97 Oxygen Delivery Room Air Fraction of Inspired Oxygen 10/21/24 10:00 10/21/24 10:00 10/21/24 11:35 Temperature Pulse Rate 82 82 Respiratory Rate 19 Blood Pressure 109/59 L Pulse Oximetry 96 Oxygen Delivery Room Air Fraction of Inspired Oxygen 10/21/24 12:00 10/21/24 12:00 10/21/24 12:00 Temperature 98.3 F Pulse Rate 86 86 Respiratory Rate 20 Blood Pressure 118/67 Pulse Oximetry 96 93 Oxygen Delivery Room Air Fraction of Inspired Oxygen Intake/Output Intake/Output: Intake & Output 10/18/24 10/19/24 10/20/24 10/21/24 23:59 23:59 23:59 23:59 Intake Total 721.8 689.3 580.8 729 Output Total 2600 3000 3500 0 Balance -1878.2 -2310.7 -2919.2 729 Meds/Results Medications: Active Medications Generic Name Dose Route Start Last Admin Trade Name Freq PRN Reason Stop Dose Admin Acetaminophen 650 mg 10/08/24 20:49 Acetaminophen 650 Mg Suppository RECTAL Q6H PRN Mild Pain (1-3) or Fever Albuterol/Ipratropium 3 ml 10/09/24 14:00 10/21/24 08:09 Ipratropium 0.5 Mg/Albuterol Sulfate 2.5 Mg Ampul.Neb 3 Ml INHALATION 3 ml Q6HRT CESAR Administration Allopurinol 100 mg 10/09/24 08:00 10/21/24 09:34 Allopurinol 100 Mg Tablet PO 100 mg DAILY@0800 CESAR Administration Apixaban 2.5 mg 10/09/24 09:00 10/21/24 09:34 Apixaban 2.5 Mg Tablet PO 2.5 mg Q12HR CESAR Administration Atorvastatin Calcium 10 mg 10/09/24 09:00 10/21/24 09:34 Atorvastatin 10 Mg Tablet PO 10 mg DAILY CESAR Administration Budesonide 0.5 mg 10/09/24 20:00 10/21/24 08:09 Budesonide Respule Neb 0.5 Mg/2 Ml Amp INHALATION 0.5 mg Q12HRT CESAR Administration Dextrose 12.5 gm 10/08/24 22:06 10/17/24 09:53 Dextrose 50% 25 Gm/50 Ml Syringe IV PUSH 12.5 gm PRN PRN Administration Hypoglycemia Protocol Glucagon 1 mg 10/08/24 22:06 Glucagon For Inj 1 Mg Vial IM PRN PRN Hypoglycemia Protocol Glucose 15 gm 10/08/24 22:06 Glucose Oral Gel 15 Gm Of Glucse In 37.5 Gm Tube PO PRN PRN Hypoglycemia Protocol Hydrocortisone Sodium Succinate 50 mg 10/21/24 09:00 10/21/24 09:34 Hydrocortisone Sodium Succinate 100 Mg/2 Ml Vial IV PUSH 10/22/24 09:01 50 mg DAILY CESAR Administration Dextrose 1,000 mls @ 100 mls/hr 10/08/24 22:06 Dextrose 5% 1,000 Ml IVPB PRN PRN Hypoglycemia Protocol Norepinephrine Bitartrate 8 mg in 250 mls @ 1.875 mls/hr 10/13/24 05:05 10/21/24 00:00 Levophed 8 Mg/D5w 250 Ml IV CONT Infused .Q24H CESAR Titration Protocol 1 MCG/MIN Albumin Human 50 mls @ 999 mls/hr 10/14/24 06:24 10/15/24 17:30 Albutein IVPB 11/13/24 06:23 Infused Q10M PRN Infusion HYPOTENSION Insulin Aspart 4 - 8 units 10/11/24 12:00 10/21/24 12:20 Insulin Aspart (*Bkc) 100 Units/Ml SUB-Q Not Given Q4H CESAR Protocol Insulin Glargine 16 units 10/21/24 09:00 10/21/24 09:35 Insulin Glargine (*Bkc) 100 Units/Ml SUB-Q 16 units DAILY CESAR Administration Midodrine 10 mg 10/20/24 08:00 10/21/24 13:13 Midodrine Hcl 10 Mg Tablet FEED TUBE 10 mg Q6H CESAR Administration Neomycin/Polymyxin/Bacitracin 1 applic 10/17/24 09:00 10/21/24 09:34 Neomycin/Polymyxin/Bacitracin Ointment 15 Gm Tube TOPICAL 1 applic QAM CESAR Administration Pantoprazole Sodium 40 mg 10/09/24 13:45 10/21/24 09:33 Pantoprazole Sodium Iv 40 Mg Vial IV PUSH 40 mg QAM CESAR Administration Polyethylene Glycol 17 gm 10/15/24 10:25 10/21/24 09:33 Polyethylene Glycol 3350 17 Gm Powd.Pack PO 17 gm QAM CESAR Administration Fluticasone/Salmeterol 2 puff 10/09/24 08:00 10/09/24 09:26 Fluticasone/Salmeterol 115-21 Mcg Inhaler 1 Puff INHALATION Not Given Q12HRT CESAR Sevelamer Carbonate 1.6 gm 10/14/24 08:45 10/21/24 13:13 Sevelamer Carbonate 0.8 Gm Oral Powder Packet BY MOUTH 1.6 gm TIDWM CESAR Administration Sodium Chloride 10 ml 10/09/24 14:00 10/21/24 13:14 Central Line Flush IV PUSH 10 ml Q8HR CESAR Administration Sodium Chloride 20 ml 10/09/24 06:24 10/18/24 05:38 Central Line Flush IV PUSH 20 ml PRN PRN Administration after blood draws Sodium Chloride 10 ml 10/20/24 14:00 10/21/24 13:14 Central Line Flush IV PUSH 10 ml Q8HR CESAR Administration Sodium Chloride 10 ml 10/20/24 13:51 Central Line Flush IV PUSH PRN PRN with TPN bag changes Sodium Chloride 20 ml 10/20/24 13:51 Central Line Flush IV PUSH PRN PRN after blood draws Radiology Results: ITS Impressions Pelvis X-Ray 10/08/24 22:22 IMPRESSION: As above. Head CT 10/08/24 23:18 IMPRESSION: No acute intracranial findings. Chest CT 10/08/24 23:27 IMPRESSION: 1. Interstitial thickening in the lower lobes which may indicate pneumonitis. Edema is less likely. 2. Cardiomegaly. 3. Cholelithiasis 4. Splenic cysts unchanged. Abdomen X-Ray 10/13/24 15:22 IMPRESSION: Nasogastric tube in good position and ready for immediate use. Modified Barium Swallow 10/18/24 17:03 IMPRESSION: Oropharyngeal dysphagia including laryngeal penetration with aspiration. Please correlate with speech pathologist findings and specific feeding recommendations. Chest X-Ray 10/20/24 13:56 IMPRESSION: 1. Right upper extremity PICC line tip near the superior cavoatrial junction. 2. Persistent opacities in the right lower lung zone which could represent atelectasis or pneumonia. Labs Labs: Laboratory Results - last 24 hr 10/20/24 10/20/24 10/20/24 15:51 21:45 23:49 WBC RBC Hgb Hct MCV MCH MCHC RDW Plt Count MPV Immature Gran % (Auto) Neut % (Auto) Lymph % (Auto) [place] % (Auto) Eos % (Auto) Baso % (Auto) Lymph # (Auto) [place] # (Auto) Eos # (Auto) Baso # (Auto) Abs Immat Gran (auto) Absolute Neuts (auto) Absolute Nucleated RBC Nucleated RBC % Sodium Potassium Chloride Carbon Dioxide Anion Gap BUN Creatinine Estim Creat Clear Calc Estimated GFR Glucose POC Capillary Glucose 237 H 197 H 202 H Calcium Phosphorus Magnesium Total Bilirubin AST ALT Alkaline Phosphatase Total Protein Albumin 10/21/24 10/21/24 10/21/24 04:39 04:40 08:06 WBC 9.6 RBC 3.72 L Hgb 11.8 L Hct 36.0 L MCV 96.8 MCH 31.7 MCHC 32.8 RDW 18.2 H Plt Count 118 L MPV 10.5 H Immature Gran % (Auto) 0.9 H Neut % (Auto) 78.4 H Lymph % (Auto) 5.9 L [place] % (Auto) 14.5 H Eos % (Auto) 0.2 Baso % (Auto) 0.1 L Lymph # (Auto) 0.57 L [place] # (Auto) 1.4 H Eos # (Auto) 0.0 Baso # (Auto) 0.0 Abs Immat Gran (auto) 0.09 H Absolute Neuts (auto) 7.5 H Absolute Nucleated RBC 0.000 Nucleated RBC % 0.0 Sodium 134 L Potassium 4.5 Chloride 91 L Carbon Dioxide 30 Anion Gap 13 H BUN 69 H D Creatinine 4.53 H Estim Creat Clear Calc 12 Estimated GFR 12 L Glucose 222 H POC Capillary Glucose 126 H Calcium 8.0 L Phosphorus 2.7 Magnesium 2.3 Total Bilirubin 1.9 H AST 29 ALT 20 Alkaline Phosphatase 122 Total Protein 7.0 Albumin 3.7 10/21/24 12:19 WBC RBC Hgb Hct MCV MCH MCHC RDW Plt Count MPV Immature Gran % (Auto) Neut % (Auto) Lymph % (Auto) [place] % (Auto) Eos % (Auto) Baso % (Auto) Lymph # (Auto) [place] # (Auto) Eos # (Auto) Baso # (Auto) Abs Immat Gran (auto) Absolute Neuts (auto) Absolute Nucleated RBC Nucleated RBC % Sodium Potassium Chloride Carbon Dioxide Anion Gap BUN Creatinine Estim Creat Clear Calc Estimated GFR Glucose POC Capillary Glucose 179 H Calcium Phosphorus Magnesium Total Bilirubin AST ALT Alkaline Phosphatase Total Protein Albumin
--- NOTE | 2024-10-21 14:45 | PCPTNOTE ---
The patient treatment was not able to be completed due to patient receiving dialysis bed side. Will plan to continue treatment per plan of care.
[2024-10-21 16:12] LABS: Glucose Point of Care 219 mg/dl (65-105)
--- NOTE | 2024-10-21 16:23 | P.PNIM_ITS ---
Progress Note: A&P Assessment and Plan (1) Sepsis: Code(s): A41.9 - Sepsis, unspecified organism Status: Acute (2) Influenza: Code(s): J11.1 - Influenza due to unidentified influenza virus with other respiratory manifestations Status: Acute (3) Pneumonia: Code(s): J18.9 - Pneumonia, unspecified organism Status: Acute (4) Altered mental status: Code(s): R41.82 - Altered mental status, unspecified Status: Acute (5) ESRD (end stage renal disease) on dialysis: Code(s): N18.6 - End stage renal disease; Z99.2 - Dependence on renal dialysis Status: Acute (6) Type 2 diabetes mellitus with diabetic neuropathy: Qualifiers: Diabetes mellitus middle or intermediate school principal insulin use: without middle or intermediate school principal use Qualified Code(s): E11.40 - Type 2 diabetes mellitus with diabetic neuropathy, unspecified Code(s): E11.40 - Type 2 diabetes mellitus with diabetic neuropathy, unspecified Status: Chronic Plan atient presented with hypotension and confusion, patient was intubated and on ventilator, patient is receiving IVF and on pressor, discussed with lens examiner patient blood pressure is improving and his off pressors, patient is found to have Influenza A treated with Tamiflu patient's and son are present in the room, on 10/13 patient had ROBERT there is no evidence endocarditis, patient is clinically improving and discussed with lens examiner plan give weaning trial, on 10/16 patient was extubated and tolerating,on 10/17 failed bedside swallow study, patient had MBS on 10/18 and failed, on 10/19 Dobbhoff was placed by IR, feeding is started, patient is having hemodialysis today plan is to remove 3 L, today no family members present, patient seen by lens examiner and substance abuse services director and appreciate Subjective Date/time seen: 10/21/24 16:23 Interval history: The patient presented to the emergency department for evaluation of altered mental status following dialysis as detailed in HPI. Labs, imaging, EKG, and all reports were personally reviewed. He meets sepsis criteria with hypotension, low-grade fever, bandemia, lactic acidosis, and altered mental status in the setting of infection. He remained hypotensive following a 1.5 L normal saline bolus (more fluids were not given due to his end-stage renal disease) and he has been started on vasopressors with a target MAP of at least 65. He tested positive for influenza A and chest x-ray shows findings of possible pneumonia for which he has been started on oseltamivir and azithromycin, ceftriaxone, and vancomycin. MRSA nasal screen pending. Sputum culture ordered. There were no reports of obvious focal deficits on exam in the ED and his altered mental status may very well be related to sepsis, influenza, and hypotension. Brain CT was without acute findings. Initiate sliding scale insulin, Accu-Cheks, and hypoglycemic protocol. He will be due for dialysis on Friday. His medications will be reviewed and resumed as appropriate. Findings and treatment plan were discussed with the patient's . Questions were solicited and answered to satisfaction. The patient's medical management will be taken over by the hospitalist team in a.m. patient presented with hypotension and confusion, patient was intubated and on ventilator, patient is receiving IVF and on pressor, discussed with lens examiner patient blood pressure is improving and his off pressors, patient is found to have Influenza A treated with Tamiflu patient's and son are present in the room, on 10/13 patient had ROBERT there is no evidence endocarditis, patient is clinically improving and discussed with lens examiner plan give weaning trial, on 10/16 patient was extubated and tolerating, failed bedside swallow study today, will have MBS tomorrow, patient still remains on pressors, patient and son are present, patient is seen by lens examiner and further recommendation to follow. patient presented with hypotension and confusion, patient was intubated and on ventilator, patient is receiving IVF and on pressor, discussed with lens examiner patient blood pressure is improving and his off pressors, patient is found to have Influenza A treated with Tamiflu patient's and son are present in the room, on 10/13 patient had ROBERT there is no evidence endocarditis, patient is clinically improving and discussed with lens examiner plan give weaning trial, on 10/16 patient was extubated and tolerating,on 10/17 failed bedside swallow study, patient had MBS on 10/18 and failed, on 10/19 Dobbhoff was placed by IR, feeding is started, patient is having hemodialysis today plan is to remove 3 L, today no family members present, patient seen by lens examiner and substance abuse services director and appreciate Review of Systems Review of Systems: ROS unobtainable: Yes unobtainable due to mental status Exam Narrative: Patient is comfortable, NAD HEENT: clear Dobbhoff in place LUNGS:CTA HEART: RR S1S2 ABD: BS+, Soft and nontender Lower extremities: no edema SKIN: nonjaundiced Neuro: still somewhat sedated Objective Data Vital Signs Vital Signs: Vital Signs - 24 hr 10/20/24 16:33 10/20/24 18:00 10/20/24 18:00 Temperature 37.0 C Pulse Rate 75 75 76 Respiratory Rate 19 Blood Pressure 97/59 L 95/55 L 93/54 L Pulse Oximetry 95 Oxygen Delivery 10/20/24 18:00 10/20/24 18:59 10/20/24 20:00 Temperature Pulse Rate 77 77 77 Respiratory Rate 16 Blood Pressure 97/57 L Pulse Oximetry 92 Oxygen Delivery Room Air 10/20/24 20:00 10/20/24 20:00 10/20/24 20:00 Temperature 37.2 C Pulse Rate 83 83 82 Respiratory Rate 24 H Blood Pressure 96/56 L 96/56 L Pulse Oximetry 92 Oxygen Delivery 10/20/24 20:06 10/20/24 20:07 10/20/24 20:21 Temperature Pulse Rate 78 77 Respiratory Rate 18 16 Blood Pressure Pulse Oximetry 92 Oxygen Delivery Room Air 10/20/24 20:30 10/20/24 22:00 10/20/24 22:00 Temperature Pulse Rate 83 89 89 Respiratory Rate 18 Blood Pressure 96/55 L 96/53 L 96/53 L Pulse Oximetry 92 Oxygen Delivery 10/20/24 22:00 10/21/24 00:00 10/21/24 00:00 Temperature Pulse Rate 88 87 92 Respiratory Rate 18 Blood Pressure 102/57 L Pulse Oximetry 94 Oxygen Delivery Room Air 10/21/24 00:00 10/21/24 00:00 10/21/24 02:00 Temperature 37.4 C Pulse Rate 88 88 87 Respiratory Rate 17 Blood Pressure 114/63 Pulse Oximetry 94 Oxygen Delivery 10/21/24 02:00 10/21/24 02:20 10/21/24 02:29 Temperature Pulse Rate 86 74 77 Respiratory Rate 20 19 20 Blood Pressure 107/57 L Pulse Oximetry 93 Oxygen Delivery 10/21/24 04:00 10/21/24 04:00 10/21/24 04:00 Temperature Pulse Rate 80 80 80 Respiratory Rate 24 H 24 H Blood Pressure 108/54 L Pulse Oximetry 92 94 Oxygen Delivery Room Air 10/21/24 06:00 10/21/24 06:00 10/21/24 08:00 Temperature 37.1 C Pulse Rate 84 80 77 Respiratory Rate 20 19 Blood Pressure 114/52 L 105/49 L Pulse Oximetry 97 97 Oxygen Delivery 10/21/24 08:00 10/21/24 08:00 10/21/24 08:10 Temperature Pulse Rate 79 Respiratory Rate Blood Pressure Pulse Oximetry 95 97 Oxygen Delivery Room Air Room Air 10/21/24 08:10 10/21/24 08:24 10/21/24 10:00 Temperature Pulse Rate 81 80 82 Respiratory Rate 18 18 Blood Pressure Pulse Oximetry Oxygen Delivery 10/21/24 10:00 10/21/24 11:35 10/21/24 12:00 Temperature Pulse Rate 82 Respiratory Rate 19 Blood Pressure 109/59 L Pulse Oximetry 96 96 Oxygen Delivery Room Air Room Air 10/21/24 12:00 10/21/24 12:00 10/21/24 13:54 Temperature 36.8 C Pulse Rate 86 86 81 Respiratory Rate 20 20 Blood Pressure 118/67 Pulse Oximetry 93 Oxygen Delivery 10/21/24 14:00 10/21/24 14:00 10/21/24 14:03 Temperature Pulse Rate 73 70 75 Respiratory Rate 19 22 H Blood Pressure 123/64 Pulse Oximetry 96 Oxygen Delivery 10/21/24 16:00 10/21/24 16:00 10/21/24 16:00 Temperature 37.1 C Pulse Rate 77 77 Respiratory Rate 18 Blood Pressure 118/53 L Pulse Oximetry 96 96 Oxygen Delivery Room Air Intake/Output Intake/Output: Intake & Output 10/18/24 10/19/24 10/20/24 10/21/24 23:59 23:59 23:59 23:59 Intake Total 721.8 689.3 580.8 729 Output Total 2600 3000 3500 0 Balance -1878.2 -2310.7 -2919.2 729 Meds/Results Medications: Active Medications Generic Name Dose Route Start Last Admin Trade Name Freq PRN Reason Stop Dose Admin Acetaminophen 650 mg 10/08/24 20:49 Acetaminophen 650 Mg Suppository RECTAL Q6H PRN Mild Pain (1-3) or Fever Albuterol/Ipratropium 3 ml 10/09/24 14:00 10/21/24 13:53 Ipratropium 0.5 Mg/Albuterol Sulfate 2.5 Mg Ampul.Neb 3 Ml INHALATION 3 ml Q6HRT CESAR Administration Allopurinol 100 mg 10/09/24 08:00 10/21/24 09:34 Allopurinol 100 Mg Tablet PO 100 mg DAILY@0800 CESAR Administration Apixaban 2.5 mg 10/09/24 09:00 10/21/24 09:34 Apixaban 2.5 Mg Tablet PO 2.5 mg Q12HR CESAR Administration Atorvastatin Calcium 10 mg 10/09/24 09:00 10/21/24 09:34 Atorvastatin 10 Mg Tablet PO 10 mg DAILY CESAR Administration Budesonide 0.5 mg 10/09/24 20:00 10/21/24 08:09 Budesonide Respule Neb 0.5 Mg/2 Ml Amp INHALATION 0.5 mg Q12HRT CESAR Administration Dextrose 12.5 gm 10/08/24 22:06 10/17/24 09:53 Dextrose 50% 25 Gm/50 Ml Syringe IV PUSH 12.5 gm PRN PRN Administration Hypoglycemia Protocol Glucagon 1 mg 10/08/24 22:06 Glucagon For Inj 1 Mg Vial IM PRN PRN Hypoglycemia Protocol Glucose 15 gm 10/08/24 22:06 Glucose Oral Gel 15 Gm Of Glucse In 37.5 Gm Tube PO PRN PRN Hypoglycemia Protocol Hydrocortisone Sodium Succinate 50 mg 10/21/24 09:00 10/21/24 09:34 Hydrocortisone Sodium Succinate 100 Mg/2 Ml Vial IV PUSH 10/22/24 09:01 50 mg DAILY CESAR Administration Dextrose 1,000 mls @ 100 mls/hr 10/08/24 22:06 Dextrose 5% 1,000 Ml IVPB PRN PRN Hypoglycemia Protocol Norepinephrine Bitartrate 8 mg in 250 mls @ 1.875 mls/hr 10/13/24 05:05 10/21/24 00:00 Levophed 8 Mg/D5w 250 Ml IV CONT Infused .Q24H CESAR Titration Protocol 1 MCG/MIN Albumin Human 50 mls @ 999 mls/hr 10/14/24 06:24 10/15/24 17:30 Albutein IVPB 11/13/24 06:23 Infused Q10M PRN Infusion HYPOTENSION Albumin Human 50 mls @ 999 mls/hr 10/21/24 16:22 Albutein IVPB 10/22/24 16:21 Q10M PRN HYPOTENSION Sodium Chloride 1,000 mls @ 999 mls/hr 10/21/24 16:22 Normal Saline Iv IV CONT 10/21/24 17:22 .Q1H1M ONE Sodium Chloride 1,000 mls @ 0 mls/hr 10/21/24 16:22 Normal Saline Iv IV CONT 10/21/24 16:23 .Q0M ONE Per Protocol Insulin Aspart 4 - 8 units 10/11/24 12:00 10/21/24 12:20 Insulin Aspart (*Bkc) 100 Units/Ml SUB-Q Not Given Q4H CESAR Protocol Insulin Glargine 16 units 10/21/24 09:00 10/21/24 09:35 Insulin Glargine (*Bkc) 100 Units/Ml SUB-Q 16 units DAILY CESAR Administration Midodrine 10 mg 10/20/24 08:00 10/21/24 13:13 Midodrine Hcl 10 Mg Tablet FEED TUBE 10 mg Q6H CESAR Administration Neomycin/Polymyxin/Bacitracin 1 applic 10/17/24 09:00 10/21/24 09:34 Neomycin/Polymyxin/Bacitracin Ointment 15 Gm Tube TOPICAL 1 applic QAM CESAR Administration Pantoprazole Sodium 40 mg 10/09/24 13:45 10/21/24 09:33 Pantoprazole Sodium Iv 40 Mg Vial IV PUSH 40 mg QAM CESAR Administration Polyethylene Glycol 17 gm 10/15/24 10:25 10/21/24 09:33 Polyethylene Glycol 3350 17 Gm Powd.Pack PO 17 gm QAM CESAR Administration Fluticasone/Salmeterol 2 puff 10/09/24 08:00 10/09/24 09:26 Fluticasone/Salmeterol 115-21 Mcg Inhaler 1 Puff INHALATION Not Given Q12HRT CESAR Sevelamer Carbonate 1.6 gm 10/14/24 08:45 10/21/24 13:13 Sevelamer Carbonate 0.8 Gm Oral Powder Packet BY MOUTH 1.6 gm TIDWM CESAR Administration Sodium Chloride 10 ml 10/09/24 14:00 10/21/24 13:14 Central Line Flush IV PUSH 10 ml Q8HR CESAR Administration Sodium Chloride 20 ml 10/09/24 06:24 10/18/24 05:38 Central Line Flush IV PUSH 20 ml PRN PRN Administration after blood draws Sodium Chloride 10 ml 10/20/24 14:00 10/21/24 13:14 Central Line Flush IV PUSH 10 ml Q8HR CESAR Administration Sodium Chloride 10 ml 10/20/24 13:51 Central Line Flush IV PUSH PRN PRN with TPN bag changes Sodium Chloride 20 ml 10/20/24 13:51 Central Line Flush IV PUSH PRN PRN after blood draws Radiology Results: ITS Impressions Pelvis X-Ray 10/08/24 22:22 IMPRESSION: As above. Head CT 10/08/24 23:18 IMPRESSION: No acute intracranial findings. Chest CT 10/08/24 23:27 IMPRESSION: 1. Interstitial thickening in the lower lobes which may indicate pneumonitis. Edema is less likely. 2. Cardiomegaly. 3. Cholelithiasis 4. Splenic cysts unchanged. Abdomen X-Ray 10/13/24 15:22 IMPRESSION: Nasogastric tube in good position and ready for immediate use. Modified Barium Swallow 10/18/24 17:03 IMPRESSION: Oropharyngeal dysphagia including laryngeal penetration with aspiration. Please correlate with speech pathologist findings and specific feeding recommendations. Chest X-Ray 10/20/24 13:56 IMPRESSION: 1. Right upper extremity PICC line tip near the superior cavoatrial junction. 2. Persistent opacities in the right lower lung zone which could represent atelectasis or pneumonia. Labs Labs: Laboratory Results - last 24 hr 10/20/24 10/20/24 10/21/24 21:45 23:49 04:39 WBC 9.6 RBC 3.72 L Hgb 11.8 L Hct 36.0 L MCV 96.8 MCH 31.7 MCHC 32.8 RDW 18.2 H Plt Count 118 L MPV 10.5 H Immature Gran % (Auto) 0.9 H Neut % (Auto) 78.4 H Lymph % (Auto) 5.9 L [place] % (Auto) 14.5 H Eos % (Auto) 0.2 Baso % (Auto) 0.1 L Lymph # (Auto) 0.57 L [place] # (Auto) 1.4 H Eos # (Auto) 0.0 Baso # (Auto) 0.0 Abs Immat Gran (auto) 0.09 H Absolute Neuts (auto) 7.5 H Absolute Nucleated RBC 0.000 Nucleated RBC % 0.0 Sodium Potassium Chloride Carbon Dioxide Anion Gap BUN Creatinine Estim Creat Clear Calc Estimated GFR Glucose POC Capillary Glucose 197 H 202 H Calcium Phosphorus Magnesium Total Bilirubin AST ALT Alkaline Phosphatase Total Protein Albumin 10/21/24 10/21/24 10/21/24 04:40 08:06 12:19 WBC RBC Hgb Hct MCV MCH MCHC RDW Plt Count MPV Immature Gran % (Auto) Neut % (Auto) Lymph % (Auto) [place] % (Auto) Eos % (Auto) Baso % (Auto) Lymph # (Auto) [place] # (Auto) Eos # (Auto) Baso # (Auto) Abs Immat Gran (auto) Absolute Neuts (auto) Absolute Nucleated RBC Nucleated RBC % Sodium 134 L Potassium 4.5 Chloride 91 L Carbon Dioxide 30 Anion Gap 13 H BUN 69 H D Creatinine 4.53 H Estim Creat Clear Calc 12 Estimated GFR 12 L Glucose 222 H POC Capillary Glucose 126 H 179 H Calcium 8.0 L Phosphorus 2.7 Magnesium 2.3 Total Bilirubin 1.9 H AST 29 ALT 20 Alkaline Phosphatase 122 Total Protein 7.0 Albumin 3.7 10/21/24 16:09 WBC RBC Hgb Hct MCV MCH MCHC RDW Plt Count MPV Immature Gran % (Auto) Neut % (Auto) Lymph % (Auto) [place] % (Auto) Eos % (Auto) Baso % (Auto) Lymph # (Auto) [place] # (Auto) Eos # (Auto) Baso # (Auto) Abs Immat Gran (auto) Absolute Neuts (auto) Absolute Nucleated RBC Nucleated RBC % Sodium Potassium Chloride Carbon Dioxide Anion Gap BUN Creatinine Estim Creat Clear Calc Estimated GFR Glucose POC Capillary Glucose 219 H Calcium Phosphorus Magnesium Total Bilirubin AST ALT Alkaline Phosphatase Total Protein Albumin
[2024-10-21 20:12] LABS: Glucose Point of Care 184 mg/dl (65-105)
[2024-10-21 23:58] LABS: Glucose Point of Care 210 mg/dl (65-105)
[2024-10-22] VITALS (40 sets, daily range): BP systolic 85–126; BP diastolic 46–84; PULSE 74–96; RESP 17–26; TEMP 36.8–37.7; O2SAT 94–100
[2024-10-22] MEDS: INSULIN ASPART (*BKC) 100 UNITS/ML SUB-Q ×3 (00:25→12:54)
[2024-10-22] MEDS: IPRATROPIUM 0.5 MG/ALBUTEROL SULFATE 2.5 MG AMPUL.NEB 3 ML INHALATION ×4 (02:35→20:52)
[2024-10-22 04:42] LABS: Glucose Point of Care 166 mg/dl (65-105)
[2024-10-22] MEDS: CENTRAL LINE FLUSH 10 ML IV PUSH ×6 (06:17→21:09)
[2024-10-22 06:21] LABS: Basophils Percent Auto 0.1 % (0.2-1.2); Eosinophils Percent Auto 0.1 % (0-4.4); Hematocrit 38.4 % (42.0-52.0); Hemoglobin 12.5 g/dL (14.0-18.0); Immature Granulocyte Absolute 0.12 K/mm3 (0.00-0.031); Immature Granulocyte Percent A 0.8 % (0-0.5); Lymphocytes Absolute Auto 0.71 K/mm3 (0.9-3.2); Lymphocytes Percent Auto 4.9 % (18.3-44.2); Mean Corpuscular HGB Conc 32.6 g/dl (32-36); Mean Corpuscular Hemoglobin 31.6 pg (26-34); Mean Platelet Volume 11.3 fl (7.4-10.4); Monocytes Absolute Auto 1.6 K/mm3 (0.1-0.6); Monocytes Percent Auto 11.3 % (2.6-8.5); Neutrophils Absolute Auto 12.1 K/mm3 (1.3-6.7); Neutrophils Percent Auto 82.8 % (45.5-73.1); Platelet Count Result 134 k/mm3 (150-375); Red Blood Count 3.96 M/mm3 (4.6-6.20); Red Cell Distribution Width 18.7 % (11.5-14.5); White Blood Count 14.6 K/mm3 (4.5-10.0)
[2024-10-22 06:35] LABS: Alanine Aminotransferase 21 U/L (6-50); Alkaline Phosphatase 117 U/L (38-126); Anion Gap 17 mmol/L (4-12); Aspartate Amino Transferase 36 U/L (17-59); Bilirubin,Total 2.1 mg/dL (0.2-1.3); Blood Urea Nitrogen 100 mg/dL (9-20); Calcium 8.5 mg/dL (8.4-10.2); Carbon Dioxide 29 mmol/L (22-30); Chloride 89 mmol/L (98-107); Glucose 184 mg/dL (65-110); Magnesium 2.5 mg/dL (1.6-2.3); Potassium 4.8 mmol/L (3.4-5.0); Sodium 135 mmol/L (137-145)
[2024-10-22 06:40] LABS: Estimated CRCL calculation 9 ml/min; Estimated Glomerular Filt Rate 10
[2024-10-22 08:05] LABS: Glucose Point of Care 248 mg/dl (65-105)
[2024-10-22] MEDS: BUDESONIDE RESPULE NEB 0.5 MG/2 ML AMP INHALATION ×2 (08:28→20:52)
[2024-10-22] MEDS: SEVELAMER CARBONATE 0.8 GM ORAL POWDER PACKET 1.6 GM BY MOUTH ×2 (08:49→12:03)
[2024-10-22] MEDS: allopurinoL 100 MG TABLET PO (08:49)
[2024-10-22] MEDS: APIXABAN 2.5 MG TABLET PO ×2 (08:49→21:08)
[2024-10-22] MEDS: polyethylene glycoL 3350 17 GM POWD.PACK PO (08:49)
[2024-10-22] MEDS: MIDODRINE HCL 10 MG TABLET FEED TUBE ×3 (08:49→21:09)
[2024-10-22] MEDS: ATORVASTATIN 10 MG TABLET PO (08:49)
[2024-10-22] MEDS: PANTOPRAZOLE SODIUM IV 40 MG VIAL IV PUSH (08:49)
[2024-10-22] MEDS: NEOMYCIN/POLYMYXIN/BACITRACIN OINTMENT 15 GM TUBE 1 APPLIC TOPICAL (08:50)
[2024-10-22] MEDS: HYDROCORTISONE SODIUM SUCCINATE 100 MG/2 ML VIAL 50 MG IV PUSH (08:50)
[2024-10-22] MEDS: INSULIN GLARGINE (*BKC) 100 UNITS/ML 16 UNITS SUB-Q (08:50)
--- NOTE | 2024-10-22 10:31 | PCSTNOTE ---
Please refer to the Modified Barium Swallow Evaluation in the EMR. Pt was seen for a Modified Barium Swallow evaluation due to aspiration suspected during bedside swallow evaluation this am. The patient was seated for a lateral view and presented with 5cc of thin liquid barium via spoon, pudding consistency barium via a spoon, small pieces of cracker coated with barium pudding via spoon, moderately thick liquids via a spoon and cup sip, and mildly thick liquids via a spoon. With the 5cc amount of thin liquid, contents diffusely spilled into the pharynx and open laryngeal vestibule and was aspirated slightly before/just as swallow was triggered but aspiration essentially occurred just slightly before the actual swallow occurred. Pt responded with coughing but pt was unable to clear any aspirate. Pudding and moderately thick liquids trials were both WFL in the oral and pharyngeal stages (no aspiration). During the trials of mildly thick liquid and the cracker, reduced laryngeal elevation was exhibited as evidenced by laryngeal penetration during the swallow for with which the pt is felt to be at risk for aspiration. Impression: moderate dysphagia due to aspiration of thin liquids with a cough reflex (but no clearance of aspirate); also due to reduced laryngeal elevation; pt is at risk to aspirate mildly thick liquids as well as solids, Recommendations: level 4 puree and level 3 moderately thick liquids. Message left with provider (Karen); ST also spoke with dietitian and pt's RN. Due to pt's apprehension to eat it is felt that oral intake may be poor. May need to continue with PEG tube feedings as well. Dysphagia therapy recommended. Thank you for this referral.
--- NOTE | 2024-10-22 10:58 | P.PNNP_ITS ---
Progress Note: A&P Assessment and Plan (1) End-stage renal disease (ESRD): Code(s): N18.6 - End stage renal disease Status: Chronic Assessment and Plan: * HD is to be done soon * He is doing well today in regards to breathing. * Discussed with Dr. galaviz. Apparently after dialysis (I usually see him in the morning before dialysis) he wakes up. His predialysis BUN is 100. He is probably catabolic. Will increase his dialysis time today. * Blood pressure is doing pretty well. Still in the 110s off levophed. * continue to remove fluid as calderon (2) Septic shock: Code(s): A41.9 - Sepsis, unspecified organism; R65.21 - Severe sepsis with septic shock Status: Acute Assessment and Plan: * recent cultures negative. * Blood pressure is better on less Levophed (3) Acute respiratory failure: Code(s): J96.00 - Acute respiratory failure, unspecified whether with hypoxia or hypercapnia Status: Acute Assessment and Plan: * multifactorial: * pneumonia * altered mental status * need for airway protection * fluid * off the ventilator. * breathing okay right now off oxygen * Fluid burden is much better now. Will only take off 1-2 as tolerated today. (4) Bacteremia: Code(s): R78.81 - Bacteremia Status: Acute Assessment and Plan: * on atbs. (5) Pneumonia: Code(s): J18.9 - Pneumonia, unspecified organism Status: Acute Assessment and Plan: * suggested by recent imaging (CXR + CT scan) * on ceftriaxone (6) Influenza A: Code(s): J10.1 - Influenza due to other identified influenza virus with other respiratory manifestations Status: Acute Assessment and Plan: * as noted by testing in ER * completed course of Tamiflu (7) Altered mental status: Code(s): R41.82 - Altered mental status, unspecified Status: Acute Assessment and Plan: * this seems gradually better but stiol very weak. (8) Anemia: Qualifiers: Anemia type: unspecified type Qualified Code(s): D64.9 - Anemia, unspecified Code(s): D64.9 - Anemia, unspecified Status: Chronic Assessment and Plan: * due to ESRD * hold Retacrit since Hgb > 11 * Hb 11.8 today (9) Diabetes: Qualifiers: Diabetes mellitus type: type 2 Diabetes mellitus supervisor intermediates insulin use: without chcf use Diabetes mellitus complication status: with kidney complications Diabetes mellitus complication detail: with chronic kidney disease Chronic kidney disease stage: on chronic dialysis Qualified Code(s): E11.22 - Type 2 diabetes mellitus with diabetic chronic kidney disease; N18.6 - End stage renal disease; Z99.2 - Dependence on renal dialysis Code(s): E11.9 - Type 2 diabetes mellitus without complications Status: Chronic Assessment and Plan: * follow accu-cheks * glycemic control per hospitalist/liner reroll tender Subjective Date/time seen: 10/22/24 10:58 Interval history: Patient is comfortable but very weak No shortness of breath Exam Narrative: General: pleasant male sitting in a chair weak but in no acute distress Heart: IRRR, normal S1 and S2; Lungs: Clear to auscultation Abdomen: Bowel sounds positive and soft Extremities: No edema with chronic venous stasis changes in the shins Skin: no rash or sq nodules Objective Data Vital Signs Vital Signs: Vital Signs - 24 hr 10/21/24 11:35 10/21/24 12:00 10/21/24 12:00 Temperature Pulse Rate 86 Respiratory Rate Blood Pressure Pulse Oximetry 96 Oxygen Delivery Room Air Room Air 10/21/24 12:00 10/21/24 13:54 10/21/24 14:00 Temperature 98.3 F Pulse Rate 86 81 73 Respiratory Rate 20 20 Blood Pressure 118/67 Pulse Oximetry 93 Oxygen Delivery 10/21/24 14:00 10/21/24 14:03 10/21/24 14:30 Temperature Pulse Rate 70 75 78 Respiratory Rate 19 22 H 16 Blood Pressure 123/64 123/64 Pulse Oximetry 96 Oxygen Delivery 10/21/24 14:46 10/21/24 15:00 10/21/24 15:15 Temperature Pulse Rate 81 83 76 Respiratory Rate Blood Pressure 121/61 123/52 L 116/64 Pulse Oximetry Oxygen Delivery 10/21/24 15:30 10/21/24 15:45 10/21/24 16:00 Temperature Pulse Rate 75 78 Respiratory Rate Blood Pressure 114/54 L 118/54 L Pulse Oximetry 96 Oxygen Delivery Room Air 10/21/24 16:00 10/21/24 16:00 10/21/24 16:00 Temperature 98.7 F Pulse Rate 77 77 74 Respiratory Rate 18 Blood Pressure 118/53 L 124/56 L Pulse Oximetry 96 Oxygen Delivery 10/21/24 16:15 10/21/24 16:30 10/21/24 16:45 Temperature Pulse Rate 74 73 77 Respiratory Rate Blood Pressure 124/56 L 104/60 111/59 L Pulse Oximetry Oxygen Delivery 10/21/24 17:00 10/21/24 17:15 10/21/24 17:30 Temperature Pulse Rate 80 72 84 Respiratory Rate Blood Pressure 110/53 L 119/54 L 122/55 L Pulse Oximetry Oxygen Delivery 10/21/24 17:45 10/21/24 17:48 10/21/24 18:00 Temperature Pulse Rate 82 74 71 Respiratory Rate Blood Pressure 114/53 L 103/60 Pulse Oximetry Oxygen Delivery 10/21/24 18:00 10/21/24 18:20 10/21/24 20:00 Temperature 98.8 F 98.7 F 98.3 F Pulse Rate 73 72 76 Respiratory Rate 17 16 21 H Blood Pressure 103/60 111/57 L 119/53 L Pulse Oximetry 97 95 Oxygen Delivery 10/21/24 20:00 10/21/24 20:00 10/21/24 20:00 Temperature 98.8 F Pulse Rate 79 77 Respiratory Rate 20 Blood Pressure 119/53 L Pulse Oximetry 95 95 Oxygen Delivery Room Air 10/21/24 20:53 10/21/24 20:55 10/21/24 22:00 Temperature 98.9 F Pulse Rate 80 88 Respiratory Rate 17 22 H Blood Pressure 118/59 L Pulse Oximetry 97 95 Oxygen Delivery Room Air 10/21/24 22:00 10/22/24 00:00 10/22/24 00:00 Temperature 99 F Pulse Rate 81 91 Respiratory Rate 24 H Blood Pressure 120/58 L Pulse Oximetry 95 94 Oxygen Delivery Room Air 10/22/24 00:00 10/22/24 02:00 10/22/24 02:00 Temperature 99 F Pulse Rate 92 84 84 Respiratory Rate 22 H Blood Pressure 117/59 L Pulse Oximetry 97 Oxygen Delivery 10/22/24 02:35 10/22/24 02:45 10/22/24 04:00 Temperature 98.2 F Pulse Rate 83 86 86 Respiratory Rate 18 18 22 H Blood Pressure 126/51 L Pulse Oximetry 95 Oxygen Delivery 10/22/24 04:00 10/22/24 04:00 10/22/24 04:00 Temperature Pulse Rate 86 84 Respiratory Rate 22 H Blood Pressure 119/77 Pulse Oximetry 95 100 Oxygen Delivery Room Air 10/22/24 06:00 10/22/24 06:00 10/22/24 08:00 Temperature 98.8 F Pulse Rate 82 82 79 Respiratory Rate 19 20 Blood Pressure 106/55 L 101/57 L Pulse Oximetry 94 98 Oxygen Delivery 10/22/24 08:00 10/22/24 08:00 10/22/24 08:30 Temperature Pulse Rate 81 Respiratory Rate Blood Pressure Pulse Oximetry 96 95 Oxygen Delivery Room Air Room Air 10/22/24 08:30 10/22/24 08:43 Temperature Pulse Rate 81 75 Respiratory Rate 17 22 H Blood Pressure Pulse Oximetry Oxygen Delivery Intake/Output Intake/Output: Intake & Output 10/19/24 10/20/24 10/21/24 10/22/24 23:59 23:59 23:59 23:59 Intake Total 689.3 580.8 2121 639 Output Total 3000 3500 3000 0 Balance -2310.7 -2919.2 -879 639 Meds/Results Medications: Active Medications Generic Name Dose Route Start Last Admin Trade Name Freq PRN Reason Stop Dose Admin Acetaminophen 650 mg 10/08/24 20:49 Acetaminophen 650 Mg Suppository RECTAL Q6H PRN Mild Pain (1-3) or Fever Albuterol/Ipratropium 3 ml 10/09/24 14:00 10/22/24 08:28 Ipratropium 0.5 Mg/Albuterol Sulfate 2.5 Mg Ampul.Neb 3 Ml INHALATION 3 ml Q6HRT CESAR Administration Allopurinol 100 mg 10/09/24 08:00 10/22/24 08:49 Allopurinol 100 Mg Tablet PO 100 mg DAILY@0800 CESAR Administration Apixaban 2.5 mg 10/09/24 09:00 10/22/24 08:49 Apixaban 2.5 Mg Tablet PO 2.5 mg Q12HR CESAR Administration Atorvastatin Calcium 10 mg 10/09/24 09:00 10/22/24 08:49 Atorvastatin 10 Mg Tablet PO 10 mg DAILY CESAR Administration Budesonide 0.5 mg 10/09/24 20:00 10/22/24 08:28 Budesonide Respule Neb 0.5 Mg/2 Ml Amp INHALATION 0.5 mg Q12HRT CESAR Administration Dextrose 12.5 gm 10/08/24 22:06 10/17/24 09:53 Dextrose 50% 25 Gm/50 Ml Syringe IV PUSH 12.5 gm PRN PRN Administration Hypoglycemia Protocol Glucagon 1 mg 10/08/24 22:06 Glucagon For Inj 1 Mg Vial IM PRN PRN Hypoglycemia Protocol Glucose 15 gm 10/08/24 22:06 Glucose Oral Gel 15 Gm Of Glucse In 37.5 Gm Tube PO PRN PRN Hypoglycemia Protocol Dextrose 1,000 mls @ 100 mls/hr 10/08/24 22:06 Dextrose 5% 1,000 Ml IVPB PRN PRN Hypoglycemia Protocol Albumin Human 50 mls @ 999 mls/hr 10/14/24 06:24 10/15/24 17:30 Albutein IVPB 11/13/24 06:23 Infused Q10M PRN Infusion HYPOTENSION Albumin Human 50 mls @ 999 mls/hr 10/21/24 16:22 Albutein IVPB 10/22/24 16:21 Q10M PRN HYPOTENSION Albumin Human 50 mls @ 999 mls/hr 10/22/24 09:36 Albutein IVPB 10/23/24 09:35 Q10M PRN HYPOTENSION Insulin Aspart 4 - 8 units 10/11/24 12:00 10/22/24 08:49 Insulin Aspart (*Bkc) 100 Units/Ml SUB-Q 4 units Q4H CESAR Administration Protocol Insulin Glargine 16 units 10/21/24 09:00 10/22/24 08:50 Insulin Glargine (*Bkc) 100 Units/Ml SUB-Q 16 units DAILY CESAR Administration Midodrine 10 mg 10/20/24 08:00 10/22/24 08:49 Midodrine Hcl 10 Mg Tablet FEED TUBE 10 mg Q6H CESAR Administration Neomycin/Polymyxin/Bacitracin 1 applic 10/17/24 09:00 10/22/24 08:50 Neomycin/Polymyxin/Bacitracin Ointment 15 Gm Tube TOPICAL 1 applic QAM CESAR Administration Pantoprazole Sodium 40 mg 10/09/24 13:45 10/22/24 08:49 Pantoprazole Sodium Iv 40 Mg Vial IV PUSH 40 mg QAM CESAR Administration Polyethylene Glycol 17 gm 10/15/24 10:25 10/22/24 08:49 Polyethylene Glycol 3350 17 Gm Powd.Pack PO 17 gm QAM CESAR Administration Fluticasone/Salmeterol 2 puff 10/09/24 08:00 10/09/24 09:26 Fluticasone/Salmeterol 115-21 Mcg Inhaler 1 Puff INHALATION Not Given Q12HRT CESAR Senna/Docusate Sodium 1 tab 10/22/24 10:15 Senna/Docusate Sodium Tablet PO Q12HR CESAR Sevelamer Carbonate 1.6 gm 10/14/24 08:45 10/22/24 08:49 Sevelamer Carbonate 0.8 Gm Oral Powder Packet BY MOUTH 1.6 gm TIDWM CESAR Administration Sodium Chloride 10 ml 10/09/24 14:00 10/22/24 06:17 Central Line Flush IV PUSH 10 ml Q8HR CESAR Administration Sodium Chloride 20 ml 10/09/24 06:24 10/18/24 05:38 Central Line Flush IV PUSH 20 ml PRN PRN Administration after blood draws Sodium Chloride 10 ml 10/20/24 14:00 10/22/24 06:17 Central Line Flush IV PUSH 10 ml Q8HR CESAR Administration Sodium Chloride 10 ml 10/20/24 13:51 Central Line Flush IV PUSH PRN PRN with TPN bag changes Sodium Chloride 20 ml 10/20/24 13:51 Central Line Flush IV PUSH PRN PRN after blood draws Radiology Results: ITS Impressions Pelvis X-Ray 10/08/24 22:22 IMPRESSION: As above. Head CT 10/08/24 23:18 IMPRESSION: No acute intracranial findings. Chest CT 10/08/24 23:27 IMPRESSION: 1. Interstitial thickening in the lower lobes which may indicate pneumonitis. Edema is less likely. 2. Cardiomegaly. 3. Cholelithiasis 4. Splenic cysts unchanged. Abdomen X-Ray 10/13/24 15:22 IMPRESSION: Nasogastric tube in good position and ready for immediate use. Modified Barium Swallow 10/18/24 17:03 IMPRESSION: Oropharyngeal dysphagia including laryngeal penetration with aspiration. Please correlate with speech pathologist findings and specific feeding recommendations. Chest X-Ray 10/20/24 13:56 IMPRESSION: 1. Right upper extremity PICC line tip near the superior cavoatrial junction. 2. Persistent opacities in the right lower lung zone which could represent atelectasis or pneumonia. Labs Labs: Laboratory Results - last 24 hr 10/21/24 10/21/24 10/21/24 12:19 16:09 20:09 WBC RBC Hgb Hct MCV MCH MCHC RDW Plt Count MPV Immature Gran % (Auto) Neut % (Auto) Lymph % (Auto) [place] % (Auto) Eos % (Auto) Baso % (Auto) Lymph # (Auto) [place] # (Auto) Eos # (Auto) Baso # (Auto) Abs Immat Gran (auto) Absolute Neuts (auto) Absolute Nucleated RBC Nucleated RBC % Sodium Potassium Chloride Carbon Dioxide Anion Gap BUN Creatinine Estim Creat Clear Calc Estimated GFR Glucose POC Capillary Glucose 179 H 219 H 184 H Calcium Phosphorus Magnesium Total Bilirubin AST ALT Alkaline Phosphatase Total Protein Albumin 10/21/24 10/22/24 10/22/24 23:56 04:39 06:13 WBC 14.6 H RBC 3.96 L Hgb 12.5 L Hct 38.4 L MCV 97.0 MCH 31.6 MCHC 32.6 RDW 18.7 H Plt Count 134 L MPV 11.3 H Immature Gran % (Auto) 0.8 H Neut % (Auto) 82.8 H Lymph % (Auto) 4.9 L [place] % (Auto) 11.3 H Eos % (Auto) 0.1 Baso % (Auto) 0.1 L Lymph # (Auto) 0.71 L [place] # (Auto) 1.6 H Eos # (Auto) 0.0 Baso # (Auto) 0.0 Abs Immat Gran (auto) 0.12 H Absolute Neuts (auto) 12.1 H Absolute Nucleated RBC 0.000 Nucleated RBC % 0.0 Sodium 135 L Potassium 4.8 Chloride 89 L Carbon Dioxide 29 Anion Gap 17 H BUN 100 H D Creatinine 5.30 H Estim Creat Clear Calc 9 Estimated GFR 10 L Glucose 184 H POC Capillary Glucose 210 H 166 H Calcium 8.5 Phosphorus 3.0 Magnesium 2.5 H Total Bilirubin 2.1 H AST 36 ALT 21 Alkaline Phosphatase 117 Total Protein 8.0 Albumin 4.0 10/22/24 08:00 WBC RBC Hgb Hct MCV MCH MCHC RDW Plt Count MPV Immature Gran % (Auto) Neut % (Auto) Lymph % (Auto) [place] % (Auto) Eos % (Auto) Baso % (Auto) Lymph # (Auto) [place] # (Auto) Eos # (Auto) Baso # (Auto) Abs Immat Gran (auto) Absolute Neuts (auto) Absolute Nucleated RBC Nucleated RBC % Sodium Potassium Chloride Carbon Dioxide Anion Gap BUN Creatinine Estim Creat Clear Calc Estimated GFR Glucose POC Capillary Glucose 248 H Calcium Phosphorus Magnesium Total Bilirubin AST ALT Alkaline Phosphatase Total Protein Albumin
--- NOTE | 2024-10-22 12:00 | PCNFU ---
Nutrition Follow-Up Complete: Inadequate oral intake related to swallowing difficulties as evidenced by need for MBSS Goal: Safe textures for patient needs Diet orders Patient has limited progress towards goal. We will continue current goal. Pt current nutrition is Nepro at 40 ml/hr with Prosource BID. Last recorded weight is 81.2 kg, down from 103.6 kg on admit. Dialysis pt. Bowel Motility: Last reported BM 10/12. Senokot added today. Labs Reviewed:Glu 184, GFR 10, BUN 100, Cr 5.3, Mg 2.5, Na 134 Meds Noted: Rocephin, NovoLog, Protonix, Miralax, Eliquis, Senokot. Skin: WNL Additional Notes: Patient continues with Dobbhoff feedings of Nepro at 40 ml/hr with Protein Modular of Prosource BID. Total Nutrition: 1744 kcal/106 gm protein/800 ml water. Flush 30 ml q 4 hours. Dialysis planned for today. Agree with diet orders. Monitoring intakes, weights, labs, swallowing evaluation, diet orders Following daily in rounds, reassess every Friday and Friday.
--- NOTE | 2024-10-22 12:02 | P.PNINT_ITS ---
Progress Note: A&P Assessment and Plan (1) Respiratory failure: Code(s): J96.90 - Respiratory failure, unspecified, unspecified whether with hypoxia or hypercapnia Status: Acute Assessment and Plan: Acute respiratory failure likely related to pneumonia, altered mental status, airway protection -10/08: Intubated -10/16: Extubated -continue bronchodilators and Pulmicort -chest x-ray reviewed, will have respiratory therapist encourage incentive spirometry, EzPAP -10/17 pt failed her bedside swallow -10/18: Failed modified barium swallow -10/19: appreciate IR placing Dobbhoff tube, patient started on tube feeds and tolerating -PT/OT to continue to follow, up in chair, significant weakness (2) Septic shock: Code(s): A41.9 - Sepsis, unspecified organism; R65.21 - Severe sepsis with septic shock Status: Acute Assessment and Plan: Patient presented with altered mental status, hypotension, lactic acidosis -septic shock likely related to bacteremia, bilateral pneumonia along with influenza -status post azithromycin, ceftriaxone and vancomycin Remains off all antibiotics -10/08: Blood cultures growing strep mitis -10/10 repeat set of blood culture sent and negative till now -TTE and ROBERT are negative for evidence of valve vegetations -patient remains on Levophed but off of epinephrine and vasopressin, maintain SBP >90 mmHg. (patient's blood pressure is normally runs low according to his family) -weaning hydrocortisone -patient on midodrine, currently NPO after extubation, patient received above tube today, will restart midodrine after the 10/18: Still requiring Levophed, afebrile, WBC trending down. 10/18: Blood cultures negative x2 10/20: Levophed being weaned, increased midodrine to q.6 hours. 10/21: Off Levophed since 8:30 p.m. on 10/20/2024 (3) Bacteremia: Code(s): R78.81 - Bacteremia Status: Acute Assessment and Plan: 10/08: Blood cultures growing strep mitis group 10/10 repeat set of blood culture sent and negative till now -continue antibiotics as above TTE as below ROBERT negative for evidence of vegetation (4) Influenza A: Code(s): J10.1 - Influenza due to other identified influenza virus with other respiratory manifestations Status: Acute Assessment and Plan: Completed a course of renally dosed Tamiflu (5) Pneumonia: Code(s): J18.9 - Pneumonia, unspecified organism Status: Acute Assessment and Plan: Chest x-ray showed pneumonia, CT chest showed pneumonitis, -off all antibiotic (6) Altered mental status: Code(s): R41.82 - Altered mental status, unspecified Status: Acute Assessment and Plan: Currently intubated and sedated Head CT was negative for any acute changes at the time presentation (7) End-stage renal disease on hemodialysis: Code(s): N18.6 - End stage renal disease; Z99.2 - Dependence on renal dialysis Status: Acute Assessment and Plan: End-stage renal disease on dialysis (M, W, F) -dialysis per Nephrology. 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 terminal and repeater insulin use: without jail use Diabetes mellitus complication status: with kidney complications Diabetes mellitus complication detail: with chronic kidney disease Chronic kidney disease stage: on chronic dialysis Qualified Code(s): E11.22 - Type 2 diabetes mellitus with diabetic chronic kidney disease; N18.6 - End stage renal disease; Z99.2 - Dependence on renal dialysis Code(s): E11.9 - Type 2 diabetes mellitus without complications Status: Chronic Assessment and Plan: Continue current sliding scale and -Lantus discontinued as patient NPO (9) Atrial fibrillation: Code(s): I48.91 - Unspecified atrial fibrillation Status: Acute Assessment and Plan: Patient has a history of atrial fibrillation, remains in AFib, rate controlled -has been on apixaban, post extubation was started heparin infusion and apixaban was held as he did not have and OG/NG tube -patient failed his bedside swallow and modified barium swallow -10/19/2024 Dobbhoff tube was inserted by IR, apixaban was restarted and heparin infusion was discontinued Plan DVT prophylaxis: Restarted Eliquis on 10/19 after patient got his Dobbhoff tube placed, off heparin infusion Stress ulcer prophylaxis: Protonix Nutrition: Tube feeds through Dobbhoff tube. ( Patient failed bedside swallow evaluation and modified barium swallow) Code Status: Full code Critical Care Time Spent: 31 minutes Patient may move out of the ICU to intermediate Unit level Discussed with patient's son and spouse and updated them with patient's condition and plan of care. I answered all the questions Due to a high probability of clinically significant, life threatening deterioration, the patient required my highest level of preparedness to intervene emergently and I personally spent this critical care time directly and personally managing the patient. This critical care time included obtaining a history; examining the patient; pulse oximetry; ordering and review of studies; arranging urgent treatment with development of a management plan; evaluation of patient's response to treatment; frequent reassessment; and discussions with other providers. It was exclusive of separately billable procedures and treating other patients and teaching time. Please see Assessment and Plan section and the rest of the note for further information on patient assessment and treatment This dictation may have been done utilizing a voice recognition system. Attempts have been made to correct errors. However, there may be uncorrected grammatical, spelling, and recognitions errors present. Subjective Date/time seen: 10/22/24 12:02 Interval history: Reason for consult: Altered mental status, generalized weakness, hypotension, shock, acute respiratory failure, Gram-positive cocci in chains bacteremia, influenza A positive, MRSA screen positive 10/08: Intubated 10/16: Extubated 10/19: Double off tube inserted by IR 10/20; PICC line placed, removed femoral central line 10/22/2024: Patient seen and examined the ICU, is on room air with adequate O2 sats., is awake, alert, slightly lethargic this morning. Gives be one-word answers. Denies any chest pain, shortness of breath. Barely able to follow commands this morning. Had 3000 mL in fluid removal yesterday with dialysis. Patient remains off Levophed since 10/20/2024 at 8:30 p.m. Tolerating tube feeds via Dobbhoff tube. -patient did sit up in the chair yesterday and is working with physiotherapy. Review of Systems Review of Systems: All systems reviewed & are unremarkable except as noted in HPI and below Exam Narrative: General: Patient on room air, awake, in no acute distress HEENT:? Pupils equal and reactive bilaterally, Dobhoff tube in place Neck:? Supple Respiratory:? Coarse breath sounds bilaterally, decreased at bases, no wheezing, adequate air entry Cardiac:? Irregularly irregular, rate controlled Abdomen:? Soft, nontender, nondistended, protuberant, hypoactive bowel sounds Extremities:? Bilateral lower extremity edema is improved significantly, palpable pedal pulses Neuro:? Patient is awake, alert, nods to questions, answers yes or no to questions. Follows simple commands and upper extremities but not in lower extremities, generalized weakness Skin:? Multiple bruising noted upper and lower extremities Psych:? Unable to assess at this time Objective Data Vital Signs Vital Signs: Vital Signs - 24 hr 10/21/24 13:54 10/21/24 14:00 10/21/24 14:00 Temperature Pulse Rate 81 73 70 Respiratory Rate 20 19 Blood Pressure 123/64 Pulse Oximetry 96 Oxygen Delivery 10/21/24 14:03 10/21/24 14:30 10/21/24 14:46 Temperature Pulse Rate 75 78 81 Respiratory Rate 22 H 16 Blood Pressure 123/64 121/61 Pulse Oximetry Oxygen Delivery 10/21/24 15:00 10/21/24 15:15 10/21/24 15:30 Temperature Pulse Rate 83 76 75 Respiratory Rate Blood Pressure 123/52 L 116/64 114/54 L Pulse Oximetry Oxygen Delivery 10/21/24 15:45 10/21/24 16:00 10/21/24 16:00 Temperature Pulse Rate 78 77 Respiratory Rate Blood Pressure 118/54 L Pulse Oximetry 96 Oxygen Delivery Room Air 10/21/24 16:00 10/21/24 16:00 10/21/24 16:15 Temperature 98.7 F Pulse Rate 77 74 74 Respiratory Rate 18 Blood Pressure 118/53 L 124/56 L 124/56 L Pulse Oximetry 96 Oxygen Delivery 10/21/24 16:30 10/21/24 16:45 10/21/24 17:00 Temperature Pulse Rate 73 77 80 Respiratory Rate Blood Pressure 104/60 111/59 L 110/53 L Pulse Oximetry Oxygen Delivery 10/21/24 17:15 10/21/24 17:30 10/21/24 17:45 Temperature Pulse Rate 72 84 82 Respiratory Rate Blood Pressure 119/54 L 122/55 L 114/53 L Pulse Oximetry Oxygen Delivery 10/21/24 17:48 10/21/24 18:00 10/21/24 18:00 Temperature 98.8 F Pulse Rate 74 71 73 Respiratory Rate 17 Blood Pressure 103/60 103/60 Pulse Oximetry 97 Oxygen Delivery 10/21/24 18:20 10/21/24 20:00 10/21/24 20:00 Temperature 98.7 F 98.3 F 98.8 F Pulse Rate 72 76 79 Respiratory Rate 16 21 H 20 Blood Pressure 111/57 L 119/53 L 119/53 L Pulse Oximetry 95 95 Oxygen Delivery 10/21/24 20:00 10/21/24 20:00 10/21/24 20:53 Temperature Pulse Rate 77 80 Respiratory Rate 17 Blood Pressure Pulse Oximetry 95 Oxygen Delivery Room Air 10/21/24 20:55 10/21/24 22:00 10/21/24 22:00 Temperature 98.9 F Pulse Rate 88 81 Respiratory Rate 22 H Blood Pressure 118/59 L Pulse Oximetry 97 95 Oxygen Delivery Room Air 10/22/24 00:00 10/22/24 00:00 10/22/24 00:00 Temperature 99 F Pulse Rate 91 92 Respiratory Rate 24 H Blood Pressure 120/58 L Pulse Oximetry 95 94 Oxygen Delivery Room Air 10/22/24 02:00 10/22/24 02:00 10/22/24 02:35 Temperature 99 F Pulse Rate 84 84 83 Respiratory Rate 22 H 18 Blood Pressure 117/59 L Pulse Oximetry 97 Oxygen Delivery 10/22/24 02:45 10/22/24 04:00 10/22/24 04:00 Temperature 98.2 F Pulse Rate 86 86 Respiratory Rate 18 22 H Blood Pressure 126/51 L Pulse Oximetry 95 95 Oxygen Delivery Room Air 10/22/24 04:00 10/22/24 04:00 10/22/24 06:00 Temperature Pulse Rate 86 84 82 Respiratory Rate 22 H 19 Blood Pressure 119/77 106/55 L Pulse Oximetry 100 94 Oxygen Delivery 10/22/24 06:00 10/22/24 08:00 10/22/24 08:00 Temperature 98.8 F Pulse Rate 82 79 81 Respiratory Rate 20 Blood Pressure 101/57 L Pulse Oximetry 98 Oxygen Delivery 10/22/24 08:00 10/22/24 08:30 10/22/24 08:30 Temperature Pulse Rate 81 Respiratory Rate 17 Blood Pressure Pulse Oximetry 96 95 Oxygen Delivery Room Air Room Air 10/22/24 08:43 Temperature Pulse Rate 75 Respiratory Rate 22 H Blood Pressure Pulse Oximetry Oxygen Delivery Intake/Output Intake/Output: Intake & Output 10/19/24 10/20/24 10/21/24 10/22/24 23:59 23:59 23:59 23:59 Intake Total 689.3 580.8 2121 639 Output Total 3000 3500 3000 0 Balance -2310.7 -2919.2 -879 639 Meds/Results Medications: Active Medications Generic Name Dose Route Start Last Admin Trade Name Freq PRN Reason Stop Dose Admin Acetaminophen 650 mg 10/08/24 20:49 Acetaminophen 650 Mg Suppository RECTAL Q6H PRN Mild Pain (1-3) or Fever Albuterol/Ipratropium 3 ml 10/09/24 14:00 10/22/24 08:28 Ipratropium 0.5 Mg/Albuterol Sulfate 2.5 Mg Ampul.Neb 3 Ml INHALATION 3 ml Q6HRT CESAR Administration Allopurinol 100 mg 10/09/24 08:00 10/22/24 08:49 Allopurinol 100 Mg Tablet PO 100 mg DAILY@0800 CESAR Administration Apixaban 2.5 mg 10/09/24 09:00 10/22/24 08:49 Apixaban 2.5 Mg Tablet PO 2.5 mg Q12HR CESAR Administration Atorvastatin Calcium 10 mg 10/09/24 09:00 10/22/24 08:49 Atorvastatin 10 Mg Tablet PO 10 mg DAILY CESAR Administration Budesonide 0.5 mg 10/09/24 20:00 10/22/24 08:28 Budesonide Respule Neb 0.5 Mg/2 Ml Amp INHALATION 0.5 mg Q12HRT CESAR Administration Dextrose 12.5 gm 10/08/24 22:06 10/17/24 09:53 Dextrose 50% 25 Gm/50 Ml Syringe IV PUSH 12.5 gm PRN PRN Administration Hypoglycemia Protocol Glucagon 1 mg 10/08/24 22:06 Glucagon For Inj 1 Mg Vial IM PRN PRN Hypoglycemia Protocol Glucose 15 gm 10/08/24 22:06 Glucose Oral Gel 15 Gm Of Glucse In 37.5 Gm Tube PO PRN PRN Hypoglycemia Protocol Dextrose 1,000 mls @ 100 mls/hr 10/08/24 22:06 Dextrose 5% 1,000 Ml IVPB PRN PRN Hypoglycemia Protocol Albumin Human 50 mls @ 999 mls/hr 10/14/24 06:24 10/15/24 17:30 Albutein IVPB 11/13/24 06:23 Infused Q10M PRN Infusion HYPOTENSION Albumin Human 50 mls @ 999 mls/hr 10/21/24 16:22 Albutein IVPB 10/22/24 16:21 Q10M PRN HYPOTENSION Albumin Human 50 mls @ 999 mls/hr 10/22/24 09:36 Albutein IVPB 10/23/24 09:35 Q10M PRN HYPOTENSION Insulin Aspart 4 - 8 units 10/11/24 12:00 10/22/24 08:49 Insulin Aspart (*Bkc) 100 Units/Ml SUB-Q 4 units Q4H CESAR Administration Protocol Insulin Glargine 16 units 10/21/24 09:00 10/22/24 08:50 Insulin Glargine (*Bkc) 100 Units/Ml SUB-Q 16 units DAILY CESAR Administration Midodrine 10 mg 10/20/24 08:00 10/22/24 08:49 Midodrine Hcl 10 Mg Tablet FEED TUBE 10 mg Q6H CESAR Administration Neomycin/Polymyxin/Bacitracin 1 applic 10/17/24 09:00 10/22/24 08:50 Neomycin/Polymyxin/Bacitracin Ointment 15 Gm Tube TOPICAL 1 applic QAM CESAR Administration Pantoprazole Sodium 40 mg 10/09/24 13:45 10/22/24 08:49 Pantoprazole Sodium Iv 40 Mg Vial IV PUSH 40 mg QAM CESAR Administration Polyethylene Glycol 17 gm 10/15/24 10:25 10/22/24 08:49 Polyethylene Glycol 3350 17 Gm Powd.Pack PO 17 gm QAM CESAR Administration Fluticasone/Salmeterol 2 puff 10/09/24 08:00 10/09/24 09:26 Fluticasone/Salmeterol 115-21 Mcg Inhaler 1 Puff INHALATION Not Given Q12HRT CESAR Senna/Docusate Sodium 1 tab 10/22/24 10:15 Senna/Docusate Sodium Tablet PO Q12HR CESAR Sevelamer Carbonate 1.6 gm 10/14/24 08:45 10/22/24 08:49 Sevelamer Carbonate 0.8 Gm Oral Powder Packet BY MOUTH 1.6 gm TIDWM CESAR Administration Sodium Chloride 10 ml 10/09/24 14:00 10/22/24 06:17 Central Line Flush IV PUSH 10 ml Q8HR CESAR Administration Sodium Chloride 20 ml 10/09/24 06:24 10/18/24 05:38 Central Line Flush IV PUSH 20 ml PRN PRN Administration after blood draws Sodium Chloride 10 ml 10/20/24 14:00 10/22/24 06:17 Central Line Flush IV PUSH 10 ml Q8HR CESAR Administration Sodium Chloride 10 ml 10/20/24 13:51 Central Line Flush IV PUSH PRN PRN with TPN bag changes Sodium Chloride 20 ml 10/20/24 13:51 Central Line Flush IV PUSH PRN PRN after blood draws Radiology Results: ITS Impressions Pelvis X-Ray 10/08/24 22:22 IMPRESSION: As above. Head CT 10/08/24 23:18 IMPRESSION: No acute intracranial findings. Chest CT 10/08/24 23:27 IMPRESSION: 1. Interstitial thickening in the lower lobes which may indicate pneumonitis. Edema is less likely. 2. Cardiomegaly. 3. Cholelithiasis 4. Splenic cysts unchanged. Abdomen X-Ray 10/13/24 15:22 IMPRESSION: Nasogastric tube in good position and ready for immediate use. Modified Barium Swallow 10/18/24 17:03 IMPRESSION: Oropharyngeal dysphagia including laryngeal penetration with aspiration. Please correlate with speech pathologist findings and specific feeding recommendations. Chest X-Ray 10/20/24 13:56 IMPRESSION: 1. Right upper extremity PICC line tip near the superior cavoatrial junction. 2. Persistent opacities in the right lower lung zone which could represent atelectasis or pneumonia. Labs Labs: Laboratory Results - last 24 hr 10/21/24 10/21/24 10/21/24 12:19 16:09 20:09 WBC RBC Hgb Hct MCV MCH MCHC RDW Plt Count MPV Immature Gran % (Auto) Neut % (Auto) Lymph % (Auto) Alexander % (Auto) Eos % (Auto) Baso % (Auto) Lymph # (Auto) Alexander # (Auto) Eos # (Auto) Baso # (Auto) Abs Immat Gran (auto) Absolute Neuts (auto) Absolute Nucleated RBC Nucleated RBC % Sodium Potassium Chloride Carbon Dioxide Anion Gap BUN Creatinine Estim Creat Clear Calc Estimated GFR Glucose POC Capillary Glucose 179 H 219 H 184 H Calcium Phosphorus Magnesium Total Bilirubin AST ALT Alkaline Phosphatase Total Protein Albumin 10/21/24 10/22/24 10/22/24 23:56 04:39 06:13 WBC 14.6 H RBC 3.96 L Hgb 12.5 L Hct 38.4 L MCV 97.0 MCH 31.6 MCHC 32.6 RDW 18.7 H Plt Count 134 L MPV 11.3 H Immature Gran % (Auto) 0.8 H Neut % (Auto) 82.8 H Lymph % (Auto) 4.9 L Alexander % (Auto) 11.3 H Eos % (Auto) 0.1 Baso % (Auto) 0.1 L Lymph # (Auto) 0.71 L Alexander # (Auto) 1.6 H Eos # (Auto) 0.0 Baso # (Auto) 0.0 Abs Immat Gran (auto) 0.12 H Absolute Neuts (auto) 12.1 H Absolute Nucleated RBC 0.000 Nucleated RBC % 0.0 Sodium 135 L Potassium 4.8 Chloride 89 L Carbon Dioxide 29 Anion Gap 17 H BUN 100 H D Creatinine 5.30 H Estim Creat Clear Calc 9 Estimated GFR 10 L Glucose 184 H POC Capillary Glucose 210 H 166 H Calcium 8.5 Phosphorus 3.0 Magnesium 2.5 H Total Bilirubin 2.1 H AST 36 ALT 21 Alkaline Phosphatase 117 Total Protein 8.0 Albumin 4.0 10/22/24 08:00 WBC RBC Hgb Hct MCV MCH MCHC RDW Plt Count MPV Immature Gran % (Auto) Neut % (Auto) Lymph % (Auto) Alexander % (Auto) Eos % (Auto) Baso % (Auto) Lymph # (Auto) Alexander # (Auto) Eos # (Auto) Baso # (Auto) Abs Immat Gran (auto) Absolute Neuts (auto) Absolute Nucleated RBC Nucleated RBC % Sodium Potassium Chloride Carbon Dioxide Anion Gap BUN Creatinine Estim Creat Clear Calc Estimated GFR Glucose POC Capillary Glucose 248 H Calcium Phosphorus Magnesium Total Bilirubin AST ALT Alkaline Phosphatase Total Protein Albumin Quality VTE Prophylaxis VTE prophylaxis: mechanical ordered
[2024-10-22] MEDS: SENNA/DOCUSATE SODIUM TABLET 1 TAB PO ×2 (12:03→21:08)
[2024-10-22 12:33] LABS: Glucose Point of Care 255 mg/dl (65-105)
--- NOTE | 2024-10-22 14:15 | PCSTNOTE ---
Attempted ST this date but pt was receiving HD and very lethargic. Will attempt tomorrow.
[2024-10-22] MEDS: ALBUMIN HUMAN 25% 12.5 GM/50ML 50 ML IVPB ×2 (14:51→15:19)
[2024-10-22] MEDS: EPOETIN ALFA-EPBX 10,000 UNITS/ML VIAL 10000 UNITS IV PUSH (15:28)
[2024-10-22] MEDS: SODIUM CHLORIDE 0.9% IV 1,000 ML 999 ML IV CONT (16:58)
[2024-10-22 17:27] LABS: Glucose Point of Care 135 mg/dl (65-105)
[2024-10-22 20:39] LABS: Glucose Point of Care 150 mg/dl (65-105)
[2024-10-23] VITALS (31 sets, daily range): BP systolic 84–112; BP diastolic 50–67; PULSE 74–95; RESP 20–27; TEMP 36.9–37.8; O2SAT 91–98
[2024-10-23 00:37] LABS: Glucose Point of Care 223 mg/dl (65-105)
[2024-10-23] MEDS: INSULIN ASPART (*BKC) 100 UNITS/ML SUB-Q ×3 (00:44→08:54)
[2024-10-23] MEDS: IPRATROPIUM 0.5 MG/ALBUTEROL SULFATE 2.5 MG AMPUL.NEB 3 ML INHALATION ×4 (02:40→20:14)
[2024-10-23] MEDS: MIDODRINE HCL 10 MG TABLET FEED TUBE ×4 (04:00→20:21)
[2024-10-23 04:09] LABS: Glucose Point of Care 211 mg/dl (65-105)
[2024-10-23] MEDS: CENTRAL LINE FLUSH 10 ML IV PUSH ×6 (05:29→20:23)
[2024-10-23 05:44] LABS: Basophils Percent Auto 0.2 % (0.2-1.2); Eosinophils Percent Auto 0.2 % (0-4.4); Hematocrit 37.5 % (42.0-52.0); Hemoglobin 11.9 g/dL (14.0-18.0); Immature Granulocyte Percent A 0.8 % (0-0.5); Lymphocytes Absolute Auto 0.55 K/mm3 (0.9-3.2); Lymphocytes Percent Auto 4.3 % (18.3-44.2); Mean Corpuscular HGB Conc 31.7 g/dl (32-36); Mean Corpuscular Hemoglobin 31.2 pg (26-34); Mean Corpuscular Volume 98.4 fl (80-100); Mean Platelet Volume 11.4 fl (7.4-10.4); Monocytes Absolute Auto 1.2 K/mm3 (0.1-0.6); Neutrophils Absolute Auto 10.9 K/mm3 (1.3-6.7); Neutrophils Percent Auto 85.5 % (45.5-73.1); Nucleated Red Blood Cells Perc 0.2 % (0.0-0.2); Platelet Count Result 115 k/mm3 (150-375); Red Blood Count 3.81 M/mm3 (4.6-6.20); Red Cell Distribution Width 19.3 % (11.5-14.5); White Blood Count 12.8 K/mm3 (4.5-10.0)
[2024-10-23 06:02] LABS: Alanine Aminotransferase 22 U/L (6-50); Alkaline Phosphatase 151 U/L (38-126); Anion Gap 11 mmol/L (4-12); Aspartate Amino Transferase 38 U/L (17-59); Blood Urea Nitrogen 49 mg/dL (9-20); Calcium 8.9 mg/dL (8.4-10.2); Carbon Dioxide 34 mmol/L (22-30); Chloride 93 mmol/L (98-107); Estimated CRCL calculation 13 ml/min; Estimated Glomerular Filt Rate 17; Glucose 163 mg/dL (65-110); Magnesium 2.3 mg/dL (1.6-2.3); Phosphorus 1.2 mg/dL (2.5-4.5); Potassium 4.2 mmol/L (3.4-5.0); Sodium 138 mmol/L (137-145)
[2024-10-23] MEDS: SEVELAMER CARBONATE 0.8 GM ORAL POWDER PACKET 1.6 GM BY MOUTH (08:51)
[2024-10-23] MEDS: polyethylene glycoL 3350 17 GM POWD.PACK PO (08:51)
[2024-10-23] MEDS: POTASSIUM/PHOSPHORUS/SODIUM 1.5 GM PACKET 1 PACKET PO (08:51)
[2024-10-23] MEDS: APIXABAN 2.5 MG TABLET PO ×2 (08:52→20:21)
[2024-10-23] MEDS: ATORVASTATIN 10 MG TABLET PO (08:52)
[2024-10-23] MEDS: NEOMYCIN/POLYMYXIN/BACITRACIN OINTMENT 15 GM TUBE 1 APPLIC TOPICAL (08:52)
[2024-10-23] MEDS: SENNA/DOCUSATE SODIUM TABLET 1 TAB PO (08:52)
[2024-10-23] MEDS: allopurinoL 100 MG TABLET PO (08:52)
[2024-10-23] MEDS: PANTOPRAZOLE SODIUM IV 40 MG VIAL IV PUSH (08:52)
[2024-10-23] MEDS: BUDESONIDE RESPULE NEB 0.5 MG/2 ML AMP INHALATION ×2 (08:52→20:14)
[2024-10-23 08:56] LABS: Glucose Point of Care 204 mg/dl (65-105)
[2024-10-23] MEDS: INSULIN GLARGINE (*BKC) 100 UNITS/ML 16 UNITS SUB-Q (08:56)
--- NOTE | 2024-10-23 11:00 | P.PNNP_ITS ---
Progress Note: A&P Assessment and Plan (1) End-stage renal disease (ESRD): Code(s): N18.6 - End stage renal disease Status: Chronic Assessment and Plan: * HD is to be done soon. BUN is better. I hesitate to go 2 days without dialysis at this point because of the issues with his mental status. Will do a short treatment today and then do another treatment on Friday * He is doing well today in regards to breathing and volume status. Will just take 1 or 2 off today as tolerated * Discussed with Dr. galaviz. * Blood pressure is doing pretty well. Still in the 80s to 110s off levophed. he is on midodrine (2) Septic shock: Code(s): A41.9 - Sepsis, unspecified organism; R65.21 - Severe sepsis with septic shock Status: Acute Assessment and Plan: * recent cultures negative. * Blood pressure is better on less Levophed (3) Acute respiratory failure: Code(s): J96.00 - Acute respiratory failure, unspecified whether with hypoxia or hypercapnia Status: Acute Assessment and Plan: * multifactorial: * pneumonia * altered mental status * need for airway protection * fluid * off the ventilator. * breathing okay right now off oxygen * Fluid burden is much better now. Will only take off 0-1 as tolerated today. (4) Bacteremia: Code(s): R78.81 - Bacteremia Status: Acute Assessment and Plan: * on atbs. (5) Pneumonia: Code(s): J18.9 - Pneumonia, unspecified organism Status: Acute Assessment and Plan: * suggested by recent imaging (CXR + CT scan) * on ceftriaxone (6) Influenza A: Code(s): J10.1 - Influenza due to other identified influenza virus with other respiratory manifestations Status: Acute Assessment and Plan: * as noted by testing in ER * completed course of Tamiflu (7) Altered mental status: Code(s): R41.82 - Altered mental status, unspecified Status: Acute Assessment and Plan: * this seems gradually better but stiol very weak. (8) Anemia: Qualifiers: Anemia type: unspecified type Qualified Code(s): D64.9 - Anemia, unspecified Code(s): D64.9 - Anemia, unspecified Status: Chronic Assessment and Plan: * due to ESRD * hold Retacrit since Hgb > 11 * Hb 11.9 today (9) Diabetes: Qualifiers: Diabetes mellitus type: type 2 Diabetes mellitus emt intermediate insulin use: without emt intermediate use Diabetes mellitus complication status: with kidney complications Diabetes mellitus complication detail: with chronic kidney disease Chronic kidney disease stage: on chronic dialysis Qualified Code(s): E11.22 - Type 2 diabetes mellitus with diabetic chronic kidney disease; N18.6 - End stage renal disease; Z99.2 - Dependence on renal dialysis Code(s): E11.9 - Type 2 diabetes mellitus without complications Status: Chronic Assessment and Plan: * follow accu-cheks * 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 Yanez is in the room. Dexter is feeling weak still Exam Narrative: General: pleasant male sitting in a chair weak but in no acute distress Heart: IRRR, normal S1 and S2; Lungs: Clear to auscultation Abdomen: Bowel sounds positive and soft Extremities: No edema with chronic venous stasis changes in the shins Skin: no rash or sq nodules Objective Data Vital Signs Vital Signs: Vital Signs - 24 hr 10/22/24 12:00 10/22/24 12:00 10/22/24 12:00 Temperature 98.6 F Pulse Rate 81 84 Respiratory Rate 22 H Blood Pressure 103/53 L Pulse Oximetry 97 95 Oxygen Delivery Room Air Fraction of Inspired Oxygen 10/22/24 13:30 10/22/24 13:54 10/22/24 14:00 Temperature 99.5 F Pulse Rate 87 81 83 Respiratory Rate 23 H Blood Pressure 102/57 L 100/58 L 98/57 L Pulse Oximetry 97 Oxygen Delivery Fraction of Inspired Oxygen 10/22/24 14:00 10/22/24 14:00 10/22/24 14:15 Temperature Pulse Rate 78 78 80 Respiratory Rate 22 H Blood Pressure 98/57 L 96/55 L Pulse Oximetry 100 Oxygen Delivery Fraction of Inspired Oxygen 10/22/24 14:30 10/22/24 14:45 10/22/24 14:49 Temperature Pulse Rate 74 83 Respiratory Rate Blood Pressure 101/53 L 88/54 L 94/57 L Pulse Oximetry Oxygen Delivery Fraction of Inspired Oxygen 10/22/24 14:58 10/22/24 15:00 10/22/24 15:09 Temperature Pulse Rate 84 83 81 Respiratory Rate 22 H 19 Blood Pressure 90/50 L Pulse Oximetry Oxygen Delivery Fraction of Inspired Oxygen 10/22/24 15:15 10/22/24 15:30 10/22/24 15:45 Temperature Pulse Rate 81 90 86 Respiratory Rate Blood Pressure 98/53 L 92/60 L 96/84 L Pulse Oximetry Oxygen Delivery Fraction of Inspired Oxygen 10/22/24 16:00 10/22/24 16:00 10/22/24 16:00 Temperature Pulse Rate 82 86 Respiratory Rate Blood Pressure 93/46 L Pulse Oximetry 96 Oxygen Delivery Room Air Fraction of Inspired Oxygen 10/22/24 16:00 10/22/24 16:15 10/22/24 16:30 Temperature 98.5 F Pulse Rate 82 86 86 Respiratory Rate 18 Blood Pressure 93/46 L 94/46 L 94/53 L Pulse Oximetry 97 Oxygen Delivery Fraction of Inspired Oxygen 10/22/24 16:45 10/22/24 17:00 10/22/24 17:15 Temperature Pulse Rate 87 79 80 Respiratory Rate Blood Pressure 86/53 L 91/54 L 95/56 L Pulse Oximetry Oxygen Delivery Fraction of Inspired Oxygen 10/22/24 17:30 10/22/24 17:45 10/22/24 18:00 Temperature Pulse Rate 78 87 85 Respiratory Rate Blood Pressure 91/52 L 85/57 L 90/53 L Pulse Oximetry Oxygen Delivery Fraction of Inspired Oxygen 10/22/24 18:00 10/22/24 18:03 10/22/24 18:50 Temperature 99.0 F Pulse Rate 81 78 80 Respiratory Rate 20 19 Blood Pressure 85/54 L 93/52 L 90/58 L Pulse Oximetry 96 96 Oxygen Delivery Fraction of Inspired Oxygen 10/22/24 20:00 10/22/24 20:00 10/22/24 20:00 Temperature 99.8 F H Pulse Rate 85 86 Respiratory Rate 24 H Blood Pressure 101/55 L Pulse Oximetry 97 95 Oxygen Delivery Room Air Fraction of Inspired Oxygen 10/22/24 20:53 10/22/24 20:55 10/22/24 21:08 Temperature Pulse Rate 84 87 82 Respiratory Rate 22 H 20 Blood Pressure Pulse Oximetry 94 Oxygen Delivery Room Air Fraction of Inspired Oxygen 10/22/24 22:00 10/23/24 00:00 10/23/24 00:00 Temperature 99.4 F Pulse Rate 96 93 Respiratory Rate 26 H 22 H Blood Pressure 99/57 L 99/60 L Pulse Oximetry 95 95 91 Oxygen Delivery Room Air Fraction of Inspired Oxygen 10/23/24 00:00 10/23/24 01:50 10/23/24 02:40 Temperature Pulse Rate 91 90 87 Respiratory Rate 24 H 20 Blood Pressure 98/54 L Pulse Oximetry 93 Oxygen Delivery Fraction of Inspired Oxygen 10/23/24 02:49 10/23/24 04:00 10/23/24 04:00 Temperature Pulse Rate 86 95 Respiratory Rate 20 Blood Pressure Pulse Oximetry Oxygen Delivery Room Air Fraction of Inspired Oxygen 10/23/24 04:00 10/23/24 06:00 10/23/24 06:00 Temperature Pulse Rate 84 89 85 Respiratory Rate 25 H 27 H Blood Pressure 100/55 L 99/57 L Pulse Oximetry 95 97 Oxygen Delivery Fraction of Inspired Oxygen 10/23/24 08:00 10/23/24 08:52 10/23/24 08:52 Temperature 99.8 F H Pulse Rate 85 82 Respiratory Rate 20 20 Blood Pressure 103/52 L Pulse Oximetry 92 95 Oxygen Delivery Room Air Fraction of Inspired Oxygen 21 10/23/24 09:03 10/23/24 10:00 Temperature 99.5 F Pulse Rate 90 88 Respiratory Rate 23 H 21 H Blood Pressure 84/50 L Pulse Oximetry 94 Oxygen Delivery Fraction of Inspired Oxygen Intake/Output Intake/Output: Intake & Output 10/20/24 10/21/24 10/22/24 10/23/24 23:59 23:59 23:59 23:59 Intake Total 580.8 2121 689 211 Output Total 3500 3000 0 0 Balance -2919.2 -879 689 211 Meds/Results Medications: Active Medications Generic Name Dose Route Start Last Admin Trade Name Freq PRN Reason Stop Dose Admin Acetaminophen 650 mg 10/08/24 20:49 Acetaminophen 650 Mg Suppository RECTAL Q6H PRN Mild Pain (1-3) or Fever Albuterol/Ipratropium 3 ml 10/09/24 14:00 10/23/24 08:52 Ipratropium 0.5 Mg/Albuterol Sulfate 2.5 Mg Ampul.Neb 3 Ml INHALATION 3 ml Q6HRT CESAR Administration Allopurinol 100 mg 10/09/24 08:00 10/23/24 08:52 Allopurinol 100 Mg Tablet PO 100 mg DAILY@0800 CESAR Administration Apixaban 2.5 mg 10/09/24 09:00 10/23/24 08:52 Apixaban 2.5 Mg Tablet PO 2.5 mg Q12HR CESAR Administration Atorvastatin Calcium 10 mg 10/09/24 09:00 10/23/24 08:52 Atorvastatin 10 Mg Tablet PO 10 mg DAILY CESAR Administration Budesonide 0.5 mg 10/09/24 20:00 10/23/24 08:52 Budesonide Respule Neb 0.5 Mg/2 Ml Amp INHALATION 0.5 mg Q12HRT CESAR Administration Dextrose 12.5 gm 10/08/24 22:06 10/17/24 09:53 Dextrose 50% 25 Gm/50 Ml Syringe IV PUSH 12.5 gm PRN PRN Administration Hypoglycemia Protocol Glucagon 1 mg 10/08/24 22:06 Glucagon For Inj 1 Mg Vial IM PRN PRN Hypoglycemia Protocol Glucose 15 gm 10/08/24 22:06 Glucose Oral Gel 15 Gm Of Glucse In 37.5 Gm Tube PO PRN PRN Hypoglycemia Protocol Dextrose 1,000 mls @ 100 mls/hr 10/08/24 22:06 Dextrose 5% 1,000 Ml IVPB PRN PRN Hypoglycemia Protocol Albumin Human 50 mls @ 999 mls/hr 10/14/24 06:24 10/22/24 15:19 Albutein IVPB 11/13/24 06:23 999 mls/hr Q10M PRN Administration HYPOTENSION Insulin Aspart 4 - 8 units 10/11/24 12:00 10/23/24 08:54 Insulin Aspart (*Bkc) 100 Units/Ml SUB-Q 4 units Q4H CESAR Administration Protocol Insulin Glargine 16 units 10/21/24 09:00 10/23/24 08:56 Insulin Glargine (*Bkc) 100 Units/Ml SUB-Q 16 units DAILY CESAR Administration Midodrine 10 mg 10/20/24 08:00 10/23/24 08:51 Midodrine Hcl 10 Mg Tablet FEED TUBE 10 mg Q6H CESAR Administration Neomycin/Polymyxin/Bacitracin 1 applic 10/17/24 09:00 10/23/24 08:52 Neomycin/Polymyxin/Bacitracin Ointment 15 Gm Tube TOPICAL 1 applic QAM CESAR Administration Pantoprazole Sodium 40 mg 10/09/24 13:45 10/23/24 08:52 Pantoprazole Sodium Iv 40 Mg Vial IV PUSH 40 mg QAM CESAR Administration Polyethylene Glycol 17 gm 10/15/24 10:25 10/23/24 08:51 Polyethylene Glycol 3350 17 Gm Powd.Pack PO 17 gm QAM CESAR Administration Fluticasone/Salmeterol 2 puff 10/09/24 08:00 10/09/24 09:26 Fluticasone/Salmeterol 115-21 Mcg Inhaler 1 Puff INHALATION Not Given Q12HRT CESAR Senna/Docusate Sodium 1 tab 10/22/24 10:15 10/23/24 08:52 Senna/Docusate Sodium Tablet PO 1 tab Q12HR CESAR Administration Sevelamer Carbonate 1.6 gm 10/14/24 08:45 10/23/24 08:51 Sevelamer Carbonate 0.8 Gm Oral Powder Packet BY MOUTH 1.6 gm TIDWM CESAR Administration Sodium Chloride 10 ml 10/09/24 14:00 10/23/24 05:29 Central Line Flush IV PUSH 10 ml Q8HR CESAR Administration Sodium Chloride 20 ml 10/09/24 06:24 10/18/24 05:38 Central Line Flush IV PUSH 20 ml PRN PRN Administration after blood draws Sodium Chloride 10 ml 10/20/24 14:00 10/23/24 05:29 Central Line Flush IV PUSH 10 ml Q8HR CESAR Administration Sodium Chloride 10 ml 10/20/24 13:51 Central Line Flush IV PUSH PRN PRN with TPN bag changes Sodium Chloride 20 ml 10/20/24 13:51 Central Line Flush IV PUSH PRN PRN after blood draws Radiology Results: ITS Impressions Pelvis X-Ray 10/08/24 22:22 IMPRESSION: As above. Head CT 10/08/24 23:18 IMPRESSION: No acute intracranial findings. Chest CT 10/08/24 23:27 IMPRESSION: 1. Interstitial thickening in the lower lobes which may indicate pneumonitis. Edema is less likely. 2. Cardiomegaly. 3. Cholelithiasis 4. Splenic cysts unchanged. Abdomen X-Ray 10/13/24 15:22 IMPRESSION: Nasogastric tube in good position and ready for immediate use. Modified Barium Swallow 10/18/24 17:03 IMPRESSION: Oropharyngeal dysphagia including laryngeal penetration with aspiration. Please correlate with speech pathologist findings and specific feeding recommendations. Chest X-Ray 10/20/24 13:56 IMPRESSION: 1. Right upper extremity PICC line tip near the superior cavoatrial junction. 2. Persistent opacities in the right lower lung zone which could represent atelectasis or pneumonia. Labs Labs: Laboratory Results - last 24 hr 10/22/24 10/22/24 10/22/24 12:30 17:25 20:37 WBC RBC Hgb Hct MCV MCH MCHC RDW Plt Count MPV Immature Gran % (Auto) Neut % (Auto) Lymph % (Auto) [place] % (Auto) Eos % (Auto) Baso % (Auto) Lymph # (Auto) [place] # (Auto) Eos # (Auto) Baso # (Auto) Abs Immat Gran (auto) Absolute Neuts (auto) Absolute Nucleated RBC Nucleated RBC % Sodium Potassium Chloride Carbon Dioxide Anion Gap BUN Creatinine Estim Creat Clear Calc Estimated GFR Glucose POC Capillary Glucose 255 H 135 H 150 H Calcium Phosphorus Magnesium Total Bilirubin AST ALT Alkaline Phosphatase Total Protein Albumin 10/23/24 10/23/24 10/23/24 00:34 04:01 05:35 WBC 12.8 H RBC 3.81 L Hgb 11.9 L Hct 37.5 L MCV 98.4 MCH 31.2 MCHC 31.7 L RDW 19.3 H Plt Count 115 L MPV 11.4 H Immature Gran % (Auto) 0.8 H Neut % (Auto) 85.5 H Lymph % (Auto) 4.3 L [place] % (Auto) 9.0 H Eos % (Auto) 0.2 Baso % (Auto) 0.2 Lymph # (Auto) 0.55 L [place] # (Auto) 1.2 H Eos # (Auto) 0.0 Baso # (Auto) 0.0 Abs Immat Gran (auto) 0.10 H Absolute Neuts (auto) 10.9 H Absolute Nucleated RBC 0.030 H Nucleated RBC % 0.2 Sodium 138 Potassium 4.2 Chloride 93 L Carbon Dioxide 34 H Anion Gap 11 BUN 49 H D Creatinine 3.48 H Estim Creat Clear Calc 13 Estimated GFR 17 L Glucose 163 H POC Capillary Glucose 223 H 211 H Calcium 8.9 Phosphorus 1.2 L Magnesium 2.3 Total Bilirubin 2.0 H AST 38 ALT 22 Alkaline Phosphatase 151 H Total Protein 7.0 Albumin 4.0 10/23/24 08:47 WBC RBC Hgb Hct MCV MCH MCHC RDW Plt Count MPV Immature Gran % (Auto) Neut % (Auto) Lymph % (Auto) Bl[place] % (Auto) Eos % (Auto) Baso % (Auto) Lymph # (Auto) [place] # (Auto) Eos # (Auto) Baso # (Auto) Abs Immat Gran (auto) Absolute Neuts (auto) Absolute Nucleated RBC Nucleated RBC % Sodium Potassium Chloride Carbon Dioxide Anion Gap BUN Creatinine Estim Creat Clear Calc Estimated GFR Glucose POC Capillary Glucose 204 H Calcium Phosphorus Magnesium Total Bilirubin AST ALT Alkaline Phosphatase Total Protein Albumin
--- NOTE | 2024-10-23 12:14 | PCSTNOTE ---
Attempted ST this date. Pt alerted to name and gentle touch, but was lethargic. Laryngeal elevation and laryngeal adduction exercises were attempted in unison with the clinician. Pt. alert during exercises but non-participatory. Will attempt tomorrow.
[2024-10-23 12:18] LABS: Glucose Point of Care 170 mg/dl (65-105)
--- NOTE | 2024-10-23 13:23 | PM.IMPN ---
Progress Note: A&P Assessment and Plan (1) Respiratory failure: Code(s): J96.90 - Respiratory failure, unspecified, unspecified whether with hypoxia or hypercapnia Status: Acute Assessment and Plan: Acute respiratory failure likely related to pneumonia, altered mental status, airway protection -10/08: Intubated -10/16: Extubated -continue bronchodilators and Pulmicort -chest x-ray reviewed, will have respiratory therapist encourage incentive spirometry, EzPAP -10/17 pt failed her bedside swallow -10/18: Failed modified barium swallow -10/19: appreciate IR placing Dobbhoff tube, patient started on tube feeds and tolerating -PT/OT to continue to follow, up in chair, significant weakness (2) Septic shock: Code(s): A41.9 - Sepsis, unspecified organism; R65.21 - Severe sepsis with septic shock Status: Acute Assessment and Plan: Patient presented with altered mental status, hypotension, lactic acidosis -septic shock likely related to bacteremia, bilateral pneumonia along with influenza -status post azithromycin, ceftriaxone and vancomycin Remains off all antibiotics -10/08: Blood cultures growing strep mitis -10/10 repeat set of blood culture sent and negative till now -TTE and ROBERT are negative for evidence of valve vegetations -patient remains on Levophed but off of epinephrine and vasopressin, maintain SBP >90 mmHg. (patient's blood pressure is normally runs low according to his family) -weaning hydrocortisone -patient on midodrine, currently NPO after extubation, patient received above tube today, will restart midodrine after the 10/18: Still requiring Levophed, afebrile, WBC trending down. 10/18: Blood cultures negative x2 10/20: Levophed being weaned, increased midodrine to q.6 hours. 10/21: Off Levophed since 8:30 p.m. on 10/20/2024 (3) Bacteremia: Code(s): R78.81 - Bacteremia Status: Acute Assessment and Plan: 10/08: Blood cultures growing strep mitis group 10/10 repeat set of blood culture sent and negative till now -continue antibiotics as above TTE as below ROBERT negative for evidence of vegetation (4) Influenza A: Code(s): J10.1 - Influenza due to other identified influenza virus with other respiratory manifestations Status: Acute Assessment and Plan: Completed a course of renally dosed Tamiflu (5) Pneumonia: Code(s): J18.9 - Pneumonia, unspecified organism Status: Acute Assessment and Plan: Chest x-ray showed pneumonia, CT chest showed pneumonitis, -off all antibiotic (6) Altered mental status: Code(s): R41.82 - Altered mental status, unspecified Status: Acute Assessment and Plan: Currently intubated and sedated Head CT was negative for any acute changes at the time presentation (7) End-stage renal disease on hemodialysis: Code(s): N18.6 - End stage renal disease; Z99.2 - Dependence on renal dialysis Status: Acute Assessment and Plan: End-stage renal disease on dialysis (M, W, F) -dialysis per Nephrology. 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: without retirement use Diabetes mellitus type: type 2 Qualified Code(s): E11.22 - Type 2 diabetes mellitus with diabetic chronic kidney disease; N18.6 - End stage renal disease; Z99.2 - Dependence on renal dialysis Code(s): E11.9 - Type 2 diabetes mellitus without complications Status: Chronic Assessment and Plan: Continue current sliding scale and -Lantus discontinued as patient NPO (9) Atrial fibrillation: Code(s): I48.91 - Unspecified atrial fibrillation Status: Acute Assessment and Plan: Patient has a history of atrial fibrillation, remains in AFib, rate controlled -has been on apixaban, post extubation was started heparin infusion and apixaban was held as he did not have and OG/NG tube -patient failed his bedside swallow and modified barium swallow -10/19/2024 Dobbhoff tube was inserted by IR, apixaban was restarted and heparin infusion was discontinued Plan DVT prophylaxis: Restarted Eliquis on 10/19 after patient got his Dobbhoff tube placed, off heparin infusion Stress ulcer prophylaxis: Protonix Nutrition: Tube feeds through Dobbhoff tube. ( Patient failed bedside swallow evaluation and modified barium swallow) Code Status: Full code Discussed with patient's spouse and updated them with patient's condition and plan of care. I answered all the questions Due to a high probability of clinically significant, life threatening deterioration, the patient required my highest level of preparedness to intervene emergently and I personally spent this critical care time directly and personally managing the patient. This critical care time included obtaining a history; examining the patient; pulse oximetry; ordering and review of studies; arranging urgent treatment with development of a management plan; evaluation of patient's response to treatment; frequent reassessment; and discussions with other providers. It was exclusive of separately billable procedures and treating other patients and teaching time. Please see Assessment and Plan section and the rest of the note for further information on patient assessment and treatment This dictation may have been done utilizing a voice recognition system. Attempts have been made to correct errors. However, there may be uncorrected grammatical, spelling, and recognitions errors present. Subjective Date/time seen: 10/23/24 13:23 Interval history: Reason for consult: Altered mental status, generalized weakness, hypotension, shock, acute respiratory failure, Gram-positive cocci in chains bacteremia, influenza A positive, MRSA screen positive 10/08: Intubated 10/16: Extubated 10/19: Double off tube inserted by IR 10/20; PICC line placed, removed femoral central line 10/22/2024: Patient being seen for hospitalist team Patient seen and examined the ICU, is on room air with adequate O2 sats., is awake, alert, more awake this morning. Still significantly weak, Gives be one-word answers. Denies any chest pain, shortness of breath. Follows commands. Had dialysis done yesterday without removal of fluid. Patient remains off Levophed since 10/20/2024 at 8:30 p.m. Tolerating tube feeds via Dobbhoff tube. Review of Systems Review of Systems: All systems reviewed & are unremarkable except as noted in HPI and below Exam Narrative: General: Patient on room air, awake, in no acute distress HEENT:? Pupils equal and reactive bilaterally, Dobhoff tube in place Neck:? Supple Respiratory:? Coarse breath sounds bilaterally, decreased at bases, no wheezing, adequate air entry Cardiac:? Irregularly irregular, rate controlled Abdomen:? Soft, nontender, nondistended, protuberant, hypoactive bowel sounds Extremities:? Bilateral lower extremity edema is improved significantly, palpable pedal pulses Neuro:? Patient is awake, alert, nods to questions, answers yes or no to questions. Following commands, generalized weakness Skin:? Multiple bruising noted upper and lower extremities Psych:? Unable to assess at this time Objective Data Vital Signs Vital Signs: Vital Signs - 24 hr 10/22/24 13:30 10/22/24 13:54 10/22/24 14:00 Temperature 99.5 F Pulse Rate 87 81 83 Respiratory Rate 23 H Blood Pressure 102/57 L 100/58 L 98/57 L Pulse Oximetry 97 Oxygen Delivery Fraction of Inspired Oxygen 10/22/24 14:00 10/22/24 14:00 10/22/24 14:15 Temperature Pulse Rate 78 78 80 Respiratory Rate 22 H Blood Pressure 98/57 L 96/55 L Pulse Oximetry 100 Oxygen Delivery Fraction of Inspired Oxygen 10/22/24 14:30 10/22/24 14:45 10/22/24 14:49 Temperature Pulse Rate 74 83 Respiratory Rate Blood Pressure 101/53 L 88/54 L 94/57 L Pulse Oximetry Oxygen Delivery Fraction of Inspired Oxygen 10/22/24 14:58 10/22/24 15:00 10/22/24 15:09 Temperature Pulse Rate 84 83 81 Respiratory Rate 22 H 19 Blood Pressure 90/50 L Pulse Oximetry Oxygen Delivery Fraction of Inspired Oxygen 10/22/24 15:15 10/22/24 15:30 10/22/24 15:45 Temperature Pulse Rate 81 90 86 Respiratory Rate Blood Pressure 98/53 L 92/60 L 96/84 L Pulse Oximetry Oxygen Delivery Fraction of Inspired Oxygen 10/22/24 16:00 10/22/24 16:00 10/22/24 16:00 Temperature Pulse Rate 82 86 Respiratory Rate Blood Pressure 93/46 L Pulse Oximetry 96 Oxygen Delivery Room Air Fraction of Inspired Oxygen 10/22/24 16:00 10/22/24 16:15 10/22/24 16:30 Temperature 98.5 F Pulse Rate 82 86 86 Respiratory Rate 18 Blood Pressure 93/46 L 94/46 L 94/53 L Pulse Oximetry 97 Oxygen Delivery Fraction of Inspired Oxygen 10/22/24 16:45 10/22/24 17:00 10/22/24 17:15 Temperature Pulse Rate 87 79 80 Respiratory Rate Blood Pressure 86/53 L 91/54 L 95/56 L Pulse Oximetry Oxygen Delivery Fraction of Inspired Oxygen 10/22/24 17:30 10/22/24 17:45 10/22/24 18:00 Temperature Pulse Rate 78 87 85 Respiratory Rate Blood Pressure 91/52 L 85/57 L 90/53 L Pulse Oximetry Oxygen Delivery Fraction of Inspired Oxygen 10/22/24 18:00 10/22/24 18:03 10/22/24 18:50 Temperature 99.0 F Pulse Rate 81 78 80 Respiratory Rate 20 19 Blood Pressure 85/54 L 93/52 L 90/58 L Pulse Oximetry 96 96 Oxygen Delivery Fraction of Inspired Oxygen 10/22/24 20:00 10/22/24 20:00 10/22/24 20:00 Temperature 99.8 F H Pulse Rate 85 86 Respiratory Rate 24 H Blood Pressure 101/55 L Pulse Oximetry 97 95 Oxygen Delivery Room Air Fraction of Inspired Oxygen 10/22/24 20:53 10/22/24 20:55 10/22/24 21:08 Temperature Pulse Rate 84 87 82 Respiratory Rate 22 H 20 Blood Pressure Pulse Oximetry 94 Oxygen Delivery Room Air Fraction of Inspired Oxygen 10/22/24 22:00 10/23/24 00:00 10/23/24 00:00 Temperature 99.4 F Pulse Rate 96 93 Respiratory Rate 26 H 22 H Blood Pressure 99/57 L 99/60 L Pulse Oximetry 95 95 91 Oxygen Delivery Room Air Fraction of Inspired Oxygen 10/23/24 00:00 10/23/24 01:50 10/23/24 02:40 Temperature Pulse Rate 91 90 87 Respiratory Rate 24 H 20 Blood Pressure 98/54 L Pulse Oximetry 93 Oxygen Delivery Fraction of Inspired Oxygen 10/23/24 02:49 10/23/24 04:00 10/23/24 04:00 Temperature Pulse Rate 86 95 Respiratory Rate 20 Blood Pressure Pulse Oximetry Oxygen Delivery Room Air Fraction of Inspired Oxygen 10/23/24 04:00 10/23/24 06:00 10/23/24 06:00 Temperature Pulse Rate 84 89 85 Respiratory Rate 25 H 27 H Blood Pressure 100/55 L 99/57 L Pulse Oximetry 95 97 Oxygen Delivery Fraction of Inspired Oxygen 10/23/24 08:00 10/23/24 08:00 10/23/24 08:00 Temperature 99.8 F H Pulse Rate 85 86 Respiratory Rate 20 Blood Pressure 103/52 L Pulse Oximetry 92 97 Oxygen Delivery Room Air Fraction of Inspired Oxygen 10/23/24 08:52 10/23/24 08:52 10/23/24 09:03 Temperature Pulse Rate 82 90 Respiratory Rate 20 23 H Blood Pressure Pulse Oximetry 95 Oxygen Delivery Room Air Fraction of Inspired Oxygen 21 10/23/24 10:00 10/23/24 10:00 10/23/24 12:00 Temperature 99.5 F 100.0 F H Pulse Rate 88 75 83 Respiratory Rate 21 H 23 H Blood Pressure 84/50 L 102/52 L Pulse Oximetry 94 96 Oxygen Delivery Fraction of Inspired Oxygen 10/23/24 12:00 Temperature Pulse Rate Respiratory Rate Blood Pressure Pulse Oximetry 97 Oxygen Delivery Room Air Fraction of Inspired Oxygen Intake/Output Intake/Output: Intake & Output 10/20/24 10/21/24 10/22/24 10/23/24 23:59 23:59 23:59 23:59 Intake Total 580.8 2121 689 211 Output Total 3500 3000 0 0 Balance -2919.2 -879 689 211 Meds/Results Medications: Active Medications Generic Name Dose Route Start Last Admin Trade Name Freq PRN Reason Stop Dose Admin Acetaminophen 650 mg 10/08/24 20:49 Acetaminophen 650 Mg Suppository RECTAL Q6H PRN Mild Pain (1-3) or Fever Albuterol/Ipratropium 3 ml 10/09/24 14:00 10/23/24 08:52 Ipratropium 0.5 Mg/Albuterol Sulfate 2.5 Mg Ampul.Neb 3 Ml INHALATION 3 ml Q6HRT CESAR Administration Allopurinol 100 mg 10/09/24 08:00 10/23/24 08:52 Allopurinol 100 Mg Tablet PO 100 mg DAILY@0800 CESAR Administration Apixaban 2.5 mg 10/09/24 09:00 10/23/24 08:52 Apixaban 2.5 Mg Tablet PO 2.5 mg Q12HR CESAR Administration Atorvastatin Calcium 10 mg 10/09/24 09:00 10/23/24 08:52 Atorvastatin 10 Mg Tablet PO 10 mg DAILY CESAR Administration Budesonide 0.5 mg 10/09/24 20:00 10/23/24 08:52 Budesonide Respule Neb 0.5 Mg/2 Ml Amp INHALATION 0.5 mg Q12HRT CESAR Administration Dextrose 12.5 gm 10/08/24 22:06 10/17/24 09:53 Dextrose 50% 25 Gm/50 Ml Syringe IV PUSH 12.5 gm PRN PRN Administration Hypoglycemia Protocol Glucagon 1 mg 10/08/24 22:06 Glucagon For Inj 1 Mg Vial IM PRN PRN Hypoglycemia Protocol Glucose 15 gm 10/08/24 22:06 Glucose Oral Gel 15 Gm Of Glucse In 37.5 Gm Tube PO PRN PRN Hypoglycemia Protocol Dextrose 1,000 mls @ 100 mls/hr 10/08/24 22:06 Dextrose 5% 1,000 Ml IVPB PRN PRN Hypoglycemia Protocol Albumin Human 50 mls @ 999 mls/hr 10/14/24 06:24 10/22/24 15:19 Albutein IVPB 11/13/24 06:23 999 mls/hr Q10M PRN Administration HYPOTENSION Insulin Aspart 4 - 8 units 10/11/24 12:00 10/23/24 12:54 Insulin Aspart (*Bkc) 100 Units/Ml SUB-Q Not Given Q4H CESAR Protocol Insulin Glargine 16 units 10/21/24 09:00 10/23/24 08:56 Insulin Glargine (*Bkc) 100 Units/Ml SUB-Q 16 units DAILY CESAR Administration Midodrine 10 mg 10/20/24 08:00 10/23/24 08:51 Midodrine Hcl 10 Mg Tablet FEED TUBE 10 mg Q6H CESAR Administration Neomycin/Polymyxin/Bacitracin 1 applic 10/17/24 09:00 10/23/24 08:52 Neomycin/Polymyxin/Bacitracin Ointment 15 Gm Tube TOPICAL 1 applic QAM CESAR Administration Pantoprazole Sodium 40 mg 10/09/24 13:45 10/23/24 08:52 Pantoprazole Sodium Iv 40 Mg Vial IV PUSH 40 mg QAM CESAR Administration Polyethylene Glycol 17 gm 10/15/24 10:25 10/23/24 08:51 Polyethylene Glycol 3350 17 Gm Powd.Pack PO 17 gm QAM CESAR Administration Fluticasone/Salmeterol 2 puff 10/09/24 08:00 10/09/24 09:26 Fluticasone/Salmeterol 115-21 Mcg Inhaler 1 Puff INHALATION Not Given Q12HRT CESAR Senna/Docusate Sodium 1 tab 10/22/24 10:15 10/23/24 08:52 Senna/Docusate Sodium Tablet PO 1 tab Q12HR CESAR Administration Sodium Chloride 10 ml 10/09/24 14:00 10/23/24 05:29 Central Line Flush IV PUSH 10 ml Q8HR CESAR Administration Sodium Chloride 20 ml 10/09/24 06:24 10/18/24 05:38 Central Line Flush IV PUSH 20 ml PRN PRN Administration after blood draws Sodium Chloride 10 ml 10/20/24 14:00 10/23/24 05:29 Central Line Flush IV PUSH 10 ml Q8HR CESAR Administration Sodium Chloride 10 ml 10/20/24 13:51 Central Line Flush IV PUSH PRN PRN with TPN bag changes Sodium Chloride 20 ml 10/20/24 13:51 Central Line Flush IV PUSH PRN PRN after blood draws Radiology Results: ITS Impressions Pelvis X-Ray 10/08/24 22:22 IMPRESSION: As above. Head CT 10/08/24 23:18 IMPRESSION: No acute intracranial findings. Chest CT 10/08/24 23:27 IMPRESSION: 1. Interstitial thickening in the lower lobes which may indicate pneumonitis. Edema is less likely. 2. Cardiomegaly. 3. Cholelithiasis 4. Splenic cysts unchanged. Abdomen X-Ray 10/13/24 15:22 IMPRESSION: Nasogastric tube in good position and ready for immediate use. Modified Barium Swallow 10/18/24 17:03 IMPRESSION: Oropharyngeal dysphagia including laryngeal penetration with aspiration. Please correlate with speech pathologist findings and specific feeding recommendations. Chest X-Ray 10/20/24 13:56 IMPRESSION: 1. Right upper extremity PICC line tip near the superior cavoatrial junction. 2. Persistent opacities in the right lower lung zone which could represent atelectasis or pneumonia. Labs Labs: Laboratory Results - last 24 hr 10/22/24 10/22/24 10/23/24 17:25 20:37 00:34 WBC RBC Hgb Hct MCV MCH MCHC RDW Plt Count MPV Immature Gran % (Auto) Neut % (Auto) Lymph % (Auto) Maury % (Auto) Eos % (Auto) Baso % (Auto) Lymph # (Auto) Maury # (Auto) Eos # (Auto) Baso # (Auto) Abs Immat Gran (auto) Absolute Neuts (auto) Absolute Nucleated RBC Nucleated RBC % Sodium Potassium Chloride Carbon Dioxide Anion Gap BUN Creatinine Estim Creat Clear Calc Estimated GFR Glucose POC Capillary Glucose 135 H 150 H 223 H Calcium Phosphorus Magnesium Total Bilirubin AST ALT Alkaline Phosphatase Total Protein Albumin 10/23/24 10/23/24 10/23/24 04:01 05:35 08:47 WBC 12.8 H RBC 3.81 L Hgb 11.9 L Hct 37.5 L MCV 98.4 MCH 31.2 MCHC 31.7 L RDW 19.3 H Plt Count 115 L MPV 11.4 H Immature Gran % (Auto) 0.8 H Neut % (Auto) 85.5 H Lymph % (Auto) 4.3 L Maury % (Auto) 9.0 H Eos % (Auto) 0.2 Baso % (Auto) 0.2 Lymph # (Auto) 0.55 L Maury # (Auto) 1.2 H Eos # (Auto) 0.0 Baso # (Auto) 0.0 Abs Immat Gran (auto) 0.10 H Absolute Neuts (auto) 10.9 H Absolute Nucleated RBC 0.030 H Nucleated RBC % 0.2 Sodium 138 Potassium 4.2 Chloride 93 L Carbon Dioxide 34 H Anion Gap 11 BUN 49 H D Creatinine 3.48 H Estim Creat Clear Calc 13 Estimated GFR 17 L Glucose 163 H POC Capillary Glucose 211 H 204 H Calcium 8.9 Phosphorus 1.2 L Magnesium 2.3 Total Bilirubin 2.0 H AST 38 ALT 22 Alkaline Phosphatase 151 H Total Protein 7.0 Albumin 4.0 10/23/24 12:06 WBC RBC Hgb Hct MCV MCH MCHC RDW Plt Count MPV Immature Gran % (Auto) Neut % (Auto) Lymph % (Auto) Maury % (Auto) Eos % (Auto) Baso % (Auto) Lymph # (Auto) Maury # (Auto) Eos # (Auto) Baso # (Auto) Abs Immat Gran (auto) Absolute Neuts (auto) Absolute Nucleated RBC Nucleated RBC % Sodium Potassium Chloride Carbon Dioxide Anion Gap BUN Creatinine Estim Creat Clear Calc Estimated GFR Glucose POC Capillary Glucose 170 H Calcium Phosphorus Magnesium Total Bilirubin AST ALT Alkaline Phosphatase Total Protein Albumin Quality VTE Prophylaxis VTE prophylaxis: mechanical ordered
[2024-10-23] MEDS: ALBUMIN HUMAN 25% 12.5 GM/50ML 50 ML IVPB (14:44)
[2024-10-23 15:55] LABS: Glucose Point of Care 149 mg/dl (65-105)
[2024-10-23 20:32] LABS: Glucose Point of Care 195 mg/dl (65-105)
[2024-10-23 23:24] LABS: Glucose Point of Care 198 mg/dl (65-105)
[2024-10-24] VITALS (23 sets, daily range): BP systolic 90–107; BP diastolic 50–72; PULSE 55–104; RESP 18–26; TEMP 36.8–37.5; O2SAT 95–100
[2024-10-24] MEDS: IPRATROPIUM 0.5 MG/ALBUTEROL SULFATE 2.5 MG AMPUL.NEB 3 ML INHALATION ×4 (02:26→20:30)
[2024-10-24] MEDS: MIDODRINE HCL 10 MG TABLET FEED TUBE ×4 (03:54→22:35)
[2024-10-24] MEDS: CENTRAL LINE FLUSH 10 ML IV PUSH ×6 (03:57→22:36)
[2024-10-24 04:07] LABS: Basophils Percent Auto 0.2 % (0.2-1.2); Eosinophils Percent Auto 0.3 % (0-4.4); Hematocrit 37.5 % (42.0-52.0); Hemoglobin 11.9 g/dL (14.0-18.0); Immature Granulocyte Absolute 0.08 K/mm3 (0.00-0.031); Immature Granulocyte Percent A 0.7 % (0-0.5); Lymphocytes Absolute Auto 0.66 K/mm3 (0.9-3.2); Lymphocytes Percent Auto 5.4 % (18.3-44.2); Mean Corpuscular HGB Conc 31.7 g/dl (32-36); Mean Corpuscular Hemoglobin 31.6 pg (26-34); Mean Corpuscular Volume 99.5 fl (80-100); Mean Platelet Volume 11.3 fl (7.4-10.4); Monocytes Absolute Auto 1.3 K/mm3 (0.1-0.6); Monocytes Percent Auto 10.3 % (2.6-8.5); Neutrophils Absolute Auto 10.1 K/mm3 (1.3-6.7); Neutrophils Percent Auto 83.1 % (45.5-73.1); Platelet Count Result 107 k/mm3 (150-375); Red Blood Count 3.77 M/mm3 (4.6-6.20); Red Cell Distribution Width 19.6 % (11.5-14.5); White Blood Count 12.2 K/mm3 (4.5-10.0)
[2024-10-24 04:23] LABS: Alanine Aminotransferase 21 U/L (6-50); Albumin Level 3.7 g/dL (3.5-5.1); Alkaline Phosphatase 149 U/L (38-126); Anion Gap 11 mmol/L (4-12); Aspartate Amino Transferase 45 U/L (17-59); Bilirubin,Total 2.4 mg/dL (0.2-1.3); Blood Urea Nitrogen 53 mg/dL (9-20); Calcium 8.7 mg/dL (8.4-10.2); Carbon Dioxide 32 mmol/L (22-30); Chloride 93 mmol/L (98-107); Estimated CRCL calculation 13 ml/min; Estimated Glomerular Filt Rate 16; Glucose 225 mg/dL (65-110); Magnesium 2.3 mg/dL (1.6-2.3); Potassium 4.1 mmol/L (3.4-5.0); Sodium 136 mmol/L (137-145)
[2024-10-24] MEDS: INSULIN ASPART (*BKC) 100 UNITS/ML SUB-Q ×2 (04:57→09:45)
[2024-10-24] MEDS: BUDESONIDE RESPULE NEB 0.5 MG/2 ML AMP INHALATION ×2 (08:22→20:30)
[2024-10-24 09:12] LABS: Glucose Point of Care 210 mg/dl (65-105)
[2024-10-24] MEDS: NEOMYCIN/POLYMYXIN/BACITRACIN OINTMENT 15 GM TUBE 1 APPLIC TOPICAL (09:44)
[2024-10-24] MEDS: SENNA/DOCUSATE SODIUM TABLET 1 TAB PO (09:44)
[2024-10-24] MEDS: PANTOPRAZOLE SODIUM IV 40 MG VIAL IV PUSH (09:44)
[2024-10-24] MEDS: INSULIN GLARGINE (*BKC) 100 UNITS/ML 16 UNITS SUB-Q (09:44)
[2024-10-24] MEDS: APIXABAN 2.5 MG TABLET PO ×2 (09:44→22:36)
[2024-10-24] MEDS: ATORVASTATIN 10 MG TABLET PO (09:44)
[2024-10-24] MEDS: allopurinoL 100 MG TABLET PO (09:44)
--- NOTE | 2024-10-24 11:07 | PCSTNOTE ---
Attempted to see pt. this morning with family present at bedside. Pt. moved head in response to a couple basic yes/no questions, but would not open his eyes. Pt. not alert enough to participate in therapy. Will check tomorrow.
--- NOTE | 2024-10-24 11:16 | P.PNNP_ITS ---
Progress Note: A&P Assessment and Plan (1) End-stage renal disease (ESRD): Code(s): N18.6 - End stage renal disease Status: Chronic Assessment and Plan: * HD will be done tomorrow. * I am hoping he can just go 3 times a week this week. * Discussed with Dr. galaviz. * Blood pressure is mostly 100-110 (2) Septic shock: Code(s): A41.9 - Sepsis, unspecified organism; R65.21 - Severe sepsis with septic shock Status: Acute Assessment and Plan: * recent cultures negative. * Blood pressure is better off Levophed (3) Acute respiratory failure: Code(s): J96.00 - Acute respiratory failure, unspecified whether with hypoxia or hypercapnia Status: Acute Assessment and Plan: * multifactorial: * pneumonia * altered mental status * need for airway protection * fluid * off the ventilator. * Breathing fine off oxygen (4) Bacteremia: Code(s): R78.81 - Bacteremia Status: Acute Assessment and Plan: * on atbs. (5) Pneumonia: Code(s): J18.9 - Pneumonia, unspecified organism Status: Acute Assessment and Plan: * suggested by recent imaging (CXR + CT scan) * Off antibiotics (6) Influenza A: Code(s): J10.1 - Influenza due to other identified influenza virus with other respiratory manifestations Status: Acute Assessment and Plan: * Finished Tamiflu (7) Altered mental status: Code(s): R41.82 - Altered mental status, unspecified Status: Acute Assessment and Plan: * this seems gradually better but still very weak. (8) Anemia: Qualifiers: Anemia type: unspecified type Qualified Code(s): D64.9 - Anemia, unspecified Code(s): D64.9 - Anemia, unspecified Status: Chronic Assessment and Plan: * due to ESRD * hold Retacrit since Hgb > 11 * Hb 11.9 today (9) Diabetes: Qualifiers: Diabetes mellitus type: type 2 Diabetes mellitus oil heaterman insulin use: without penitentiary use Diabetes mellitus complication status: with kidney complications Diabetes mellitus complication detail: with chronic kidney disease Chronic kidney disease stage: on chronic dialysis Qualified Code(s): E11.22 - Type 2 diabetes mellitus with diabetic chronic kidney disease; N18.6 - End stage renal disease; Z99.2 - Dependence on renal dialysis Code(s): E11.9 - Type 2 diabetes mellitus without complications Status: Chronic Assessment and Plan: * follow accu-cheks * glycemic control per hospitalist/animal control officer Subjective Date/time seen: 10/24/24 11:16 Interval history: Patient is lying in the hospital bed in semi-Lawton's position. is in the room He follows some commands. Still very weak [place] in and tolerating tube feeding Exam Narrative: General: pleasant male sitting in a chair weak but in no acute distress Heart: IRRR, normal S1 and S2; Lungs: Clear bilaterally Abdomen: Bowel sounds positive and soft Extremities: No edema with chronic venous stasis changes in the shins Skin: no rash or sq nodules Objective Data Vital Signs Vital Signs: Vital Signs - 24 hr 10/23/24 12:00 10/23/24 12:00 10/23/24 14:00 Temperature 100.0 F H 99.0 F Pulse Rate 83 83 Respiratory Rate 23 H 22 H Blood Pressure 102/52 L 99/50 L Pulse Oximetry 96 97 96 Oxygen Delivery Room Air Fraction of Inspired Oxygen 10/23/24 14:00 10/23/24 14:30 10/23/24 14:39 Temperature 99 F Pulse Rate 79 88 89 Respiratory Rate 26 H Blood Pressure 101/58 L 109/54 L Pulse Oximetry 98 Oxygen Delivery Fraction of Inspired Oxygen 10/23/24 14:45 10/23/24 15:00 10/23/24 15:01 Temperature Pulse Rate 80 78 Respiratory Rate Blood Pressure 96/57 L 105/60 Pulse Oximetry 97 Oxygen Delivery Room Air Fraction of Inspired Oxygen 21 10/23/24 15:01 10/23/24 15:09 10/23/24 15:15 Temperature Pulse Rate 78 79 81 Respiratory Rate 20 24 H Blood Pressure 96/54 L Pulse Oximetry Oxygen Delivery Fraction of Inspired Oxygen 10/23/24 15:30 10/23/24 15:45 10/23/24 16:00 Temperature Pulse Rate 82 82 85 Respiratory Rate Blood Pressure 103/57 L 98/56 L 100/60 Pulse Oximetry Oxygen Delivery Fraction of Inspired Oxygen 10/23/24 16:00 10/23/24 16:00 10/23/24 16:00 Temperature 98.7 F Pulse Rate 84 84 Respiratory Rate 24 H Blood Pressure 100/60 Pulse Oximetry 98 98 Oxygen Delivery Room Air Fraction of Inspired Oxygen 03/22/25 16:15 10/23/24 16:30 10/23/24 16:41 Temperature Pulse Rate 82 87 82 Respiratory Rate Blood Pressure 95/58 L 101/54 L 101/67 Pulse Oximetry Oxygen Delivery Fraction of Inspired Oxygen 10/23/24 17:05 10/23/24 18:00 10/23/24 18:00 Temperature 98.7 F Pulse Rate 83 74 78 Respiratory Rate 23 H 23 H Blood Pressure 112/59 L 102/61 Pulse Oximetry 97 97 Oxygen Delivery Fraction of Inspired Oxygen 10/23/24 20:00 10/23/24 20:00 10/23/24 20:00 Temperature 98.4 F Pulse Rate 88 79 Respiratory Rate 24 H Blood Pressure 100/62 Pulse Oximetry 97 98 Oxygen Delivery Room Air Fraction of Inspired Oxygen 10/23/24 20:14 10/23/24 21:06 10/23/24 22:00 Temperature Pulse Rate 80 85 Respiratory Rate 22 H Blood Pressure Pulse Oximetry 98 Oxygen Delivery Room Air Fraction of Inspired Oxygen 10/24/24 00:00 10/24/24 00:00 10/24/24 00:00 Temperature 98.8 F Pulse Rate 88 88 Respiratory Rate 20 Blood Pressure 99/55 L Pulse Oximetry 96 96 Oxygen Delivery Room Air Fraction of Inspired Oxygen 10/24/24 02:00 10/24/24 02:27 10/24/24 02:48 Temperature Pulse Rate 76 90 78 Respiratory Rate 21 H 20 Blood Pressure Pulse Oximetry Oxygen Delivery Fraction of Inspired Oxygen 10/24/24 04:00 10/24/24 04:00 10/24/24 04:00 Temperature 98.7 F Pulse Rate 81 85 Respiratory Rate 20 Blood Pressure 107/72 Pulse Oximetry 99 98 Oxygen Delivery Room Air Fraction of Inspired Oxygen 10/24/24 06:00 10/24/24 08:24 10/24/24 08:25 Temperature Pulse Rate 92 95 Respiratory Rate 21 H Blood Pressure Pulse Oximetry 100 Oxygen Delivery Room Air Fraction of Inspired Oxygen 10/24/24 08:42 Temperature Pulse Rate 92 Respiratory Rate 26 H Blood Pressure Pulse Oximetry Oxygen Delivery Fraction of Inspired Oxygen Intake/Output Intake/Output: Intake & Output 10/21/24 10/22/24 10/23/24 10/24/24 23:59 23:59 23:59 23:59 Intake Total 2121 739 721 506 Output Total 3000 0 0 0 Balance -879 739 721 506 Meds/Results Medications: Active Medications Generic Name Dose Route Start Last Admin Trade Name Freq PRN Reason Stop Dose Admin Acetaminophen 650 mg 10/08/24 20:49 Acetaminophen 650 Mg Suppository RECTAL Q6H PRN Mild Pain (1-3) or Fever Albuterol/Ipratropium 3 ml 10/09/24 14:00 10/24/24 08:22 Ipratropium 0.5 Mg/Albuterol Sulfate 2.5 Mg Ampul.Neb 3 Ml INHALATION 3 ml Q6HRT CESAR Administration Allopurinol 100 mg 10/09/24 08:00 10/24/24 09:44 Allopurinol 100 Mg Tablet PO 100 mg DAILY@0800 CESAR Administration Apixaban 2.5 mg 10/09/24 09:00 10/24/24 09:44 Apixaban 2.5 Mg Tablet PO 2.5 mg Q12HR CESAR Administration Atorvastatin Calcium 10 mg 10/09/24 09:00 10/24/24 09:44 Atorvastatin 10 Mg Tablet PO 10 mg DAILY CESAR Administration Budesonide 0.5 mg 10/09/24 20:00 10/24/24 08:22 Budesonide Respule Neb 0.5 Mg/2 Ml Amp INHALATION 0.5 mg Q12HRT CESAR Administration Dextrose 12.5 gm 10/08/24 22:06 10/17/24 09:53 Dextrose 50% 25 Gm/50 Ml Syringe IV PUSH 12.5 gm PRN PRN Administration Hypoglycemia Protocol Glucagon 1 mg 10/08/24 22:06 Glucagon For Inj 1 Mg Vial IM PRN PRN Hypoglycemia Protocol Glucose 15 gm 10/08/24 22:06 Glucose Oral Gel 15 Gm Of Glucse In 37.5 Gm Tube PO PRN PRN Hypoglycemia Protocol Dextrose 1,000 mls @ 100 mls/hr 10/08/24 22:06 Dextrose 5% 1,000 Ml IVPB PRN PRN Hypoglycemia Protocol Albumin Human 50 mls @ 999 mls/hr 10/14/24 06:24 10/23/24 14:44 Albutein IVPB 11/13/24 06:23 999 mls/hr Q10M PRN Administration HYPOTENSION Insulin Aspart 4 - 8 units 10/11/24 12:00 10/24/24 09:45 Insulin Aspart (*Bkc) 100 Units/Ml SUB-Q 4 units Q4H CESAR Administration Protocol Insulin Glargine 16 units 10/21/24 09:00 10/24/24 09:44 Insulin Glargine (*Bkc) 100 Units/Ml SUB-Q 16 units DAILY CESAR Administration Midodrine 10 mg 10/20/24 08:00 10/24/24 09:44 Midodrine Hcl 10 Mg Tablet FEED TUBE 10 mg Q6H CESAR Administration Neomycin/Polymyxin/Bacitracin 1 applic 10/17/24 09:00 10/24/24 09:44 Neomycin/Polymyxin/Bacitracin Ointment 15 Gm Tube TOPICAL 1 applic QAM CESAR Administration Pantoprazole Sodium 40 mg 10/09/24 13:45 10/24/24 09:44 Pantoprazole Sodium Iv 40 Mg Vial IV PUSH 40 mg QAM CESAR Administration Polyethylene Glycol 17 gm 10/15/24 10:25 10/24/24 09:22 Polyethylene Glycol 3350 17 Gm Powd.Pack PO Not Given QAM CESAR Fluticasone/Salmeterol 2 puff 10/09/24 08:00 10/09/24 09:26 Fluticasone/Salmeterol 115-21 Mcg Inhaler 1 Puff INHALATION Not Given Q12HRT CESAR Senna/Docusate Sodium 1 tab 10/22/24 10:15 10/24/24 09:44 Senna/Docusate Sodium Tablet PO 1 tab Q12HR CESAR Administration Sodium Chloride 10 ml 10/09/24 14:00 10/24/24 03:57 Central Line Flush IV PUSH 10 ml Q8HR CESAR Administration Sodium Chloride 20 ml 10/09/24 06:24 10/18/24 05:38 Central Line Flush IV PUSH 20 ml PRN PRN Administration after blood draws Sodium Chloride 10 ml 10/20/24 14:00 10/24/24 03:57 Central Line Flush IV PUSH 10 ml Q8HR CESAR Administration Sodium Chloride 10 ml 10/20/24 13:51 Central Line Flush IV PUSH PRN PRN with TPN bag changes Sodium Chloride 20 ml 10/20/24 13:51 Central Line Flush IV PUSH PRN PRN after blood draws Radiology Results: ITS Impressions Pelvis X-Ray 10/08/24 22:22 IMPRESSION: As above. Head CT 10/08/24 23:18 IMPRESSION: No acute intracranial findings. Chest CT 10/08/24 23:27 IMPRESSION: 1. Interstitial thickening in the lower lobes which may indicate pneumonitis. Edema is less likely. 2. Cardiomegaly. 3. Cholelithiasis 4. Splenic cysts unchanged. Abdomen X-Ray 10/13/24 15:22 IMPRESSION: Nasogastric tube in good position and ready for immediate use. Modified Barium Swallow 10/18/24 17:03 IMPRESSION: Oropharyngeal dysphagia including laryngeal penetration with aspiration. Please correlate with speech pathologist findings and specific feeding recommendations. Chest X-Ray 10/20/24 13:56 IMPRESSION: 1. Right upper extremity PICC line tip near the superior cavoatrial junction. 2. Persistent opacities in the right lower lung zone which could represent atelectasis or pneumonia. Labs Labs: Laboratory Results - last 24 hr 10/23/24 10/23/24 10/23/24 12:06 15:53 20:20 WBC RBC Hgb Hct MCV MCH MCHC RDW Plt Count MPV Immature Gran % (Auto) Neut % (Auto) Lymph % (Auto) [place] % (Auto) Eos % (Auto) Baso % (Auto) Lymph # (Auto) [place] # (Auto) Eos # (Auto) Baso # (Auto) Abs Immat Gran (auto) Absolute Neuts (auto) Absolute Nucleated RBC Nucleated RBC % Sodium Potassium Chloride Carbon Dioxide Anion Gap BUN Creatinine Estim Creat Clear Calc Estimated GFR Glucose POC Capillary Glucose 170 H 149 H 195 H Calcium Phosphorus Magnesium Total Bilirubin AST ALT Alkaline Phosphatase Total Protein Albumin 10/23/24 10/24/24 10/24/24 23:20 03:59 09:09 WBC 12.2 H RBC 3.77 L Hgb 11.9 L Hct 37.5 L MCV 99.5 MCH 31.6 MCHC 31.7 L RDW 19.6 H Plt Count 107 L MPV 11.3 H Immature Gran % (Auto) 0.7 H Neut % (Auto) 83.1 H Lymph % (Auto) 5.4 L [place] % (Auto) 10.3 H Eos % (Auto) 0.3 Baso % (Auto) 0.2 Lymph # (Auto) 0.66 L [place] # (Auto) 1.3 H Eos # (Auto) 0.0 Baso # (Auto) 0.0 Abs Immat Gran (auto) 0.08 H Absolute Neuts (auto) 10.1 H Absolute Nucleated RBC 0.000 Nucleated RBC % 0.0 Sodium 136 L Potassium 4.1 Chloride 93 L Carbon Dioxide 32 H Anion Gap 11 BUN 53 H Creatinine 3.56 H Estim Creat Clear Calc 13 Estimated GFR 16 L Glucose 225 H POC Capillary Glucose 198 H 210 H Calcium 8.7 Phosphorus 2.0 L Magnesium 2.3 Total Bilirubin 2.4 H AST 45 ALT 21 Alkaline Phosphatase 149 H Total Protein 7.0 Albumin 3.7
[2024-10-24 12:53] LABS: Glucose Point of Care 76 mg/dl (65-105)
--- NOTE | 2024-10-24 13:25 | PM.IMPN ---
Progress Note: A&P Assessment and Plan (1) Respiratory failure: Code(s): J96.90 - Respiratory failure, unspecified, unspecified whether with hypoxia or hypercapnia Status: Acute Assessment and Plan: Acute respiratory failure likely related to pneumonia, altered mental status, airway protection -10/08: Intubated -10/16: Extubated -continue bronchodilators and Pulmicort -chest x-ray reviewed, will have respiratory therapist encourage incentive spirometry, EzPAP -10/17 pt failed his bedside swallow -10/18: Failed modified barium swallow -10/19: appreciate IR placing Dobbhoff tube, patient started on tube feeds and tolerating -PT/OT to continue to follow, up in chair, significant weakness Recheck chest x-ray (2) Septic shock: Code(s): A41.9 - Sepsis, unspecified organism; R65.21 - Severe sepsis with septic shock Status: Acute Assessment and Plan: Patient presented with altered mental status, hypotension, lactic acidosis -septic shock likely related to bacteremia, bilateral pneumonia along with influenza -status post azithromycin, ceftriaxone and vancomycin Remains off all antibiotics -10/08: Blood cultures growing strep mitis -10/10 repeat set of blood culture sent and negative till now -TTE and ROBERT are negative for evidence of valve vegetations -patient remained on Levophed but off of epinephrine and vasopressin, maintain SBP >90 mmHg. (patient's blood pressure is normally runs low according to his family) -weaning hydrocortisone -patient on midodrine, currently NPO after extubation, patient received above tube and hence restarted midodrine after the 10/18: Still requiring Levophed, afebrile, WBC trending down. 10/18: Blood cultures negative x2 10/20: Levophed being weaned, increased midodrine to q.6 hours. 10/21: Off Levophed since 8:30 p.m. on 10/20/2024. Remains on midodrine (3) Bacteremia: Code(s): R78.81 - Bacteremia Status: Acute Assessment and Plan: 10/08: Blood cultures growing strep mitis group 10/10 repeat set of blood culture sent and negative till now Completed antibiotic course TTE as below ROBERT negative for evidence of vegetation (4) Influenza A: Code(s): J10.1 - Influenza due to other identified influenza virus with other respiratory manifestations Status: Acute Assessment and Plan: Completed a course of renally dosed Tamiflu (5) Pneumonia: Code(s): J18.9 - Pneumonia, unspecified organism Status: Acute Assessment and Plan: Chest x-ray showed pneumonia, CT chest showed pneumonitis, -off all antibiotic (6) Altered mental status: Code(s): R41.82 - Altered mental status, unspecified Status: Acute Assessment and Plan: Head CT was negative for any acute changes at the time presentation Slowly improving (7) End-stage renal disease on hemodialysis: Code(s): N18.6 - End stage renal disease; Z99.2 - Dependence on renal dialysis Status: Acute Assessment and Plan: End-stage renal disease on dialysis (M, W, F) -dialysis per Nephrology. (8) Diabetes: Qualifiers: Diabetes mellitus type: type 2 Diabetes mellitus extermination inspector insulin use: without extermination inspector use Diabetes mellitus complication status: with kidney complications Diabetes mellitus complication detail: with chronic kidney disease Chronic kidney disease stage: on chronic dialysis Qualified Code(s): E11.22 - Type 2 diabetes mellitus with diabetic chronic kidney disease; N18.6 - End stage renal disease; Z99.2 - Dependence on renal dialysis Code(s): E11.9 - Type 2 diabetes mellitus without complications Status: Chronic Assessment and Plan: Continue current sliding scale and -Lantus discontinued as patient NPO (9) Atrial fibrillation: Code(s): I48.91 - Unspecified atrial fibrillation Status: Acute Assessment and Plan: Patient has a history of atrial fibrillation, remains in AFib, rate controlled -has been on apixaban, post extubation was started heparin infusion and apixaban was held as he did not have and OG/NG tube -patient failed his bedside swallow and modified barium swallow -10/19/2024 Dobbhoff tube was inserted by IR, apixaban was restarted and heparin infusion was discontinued (10) Dysphagia: Code(s): R13.10 - Dysphagia, unspecified Status: Acute Assessment and Plan: Failed swallow evaluation Currently on Dobbhoff If no improvement will likely need G-tube placement Plan DVT prophylaxis: Restarted Eliquis on 10/19 after patient got his Dobbhoff tube placed, off heparin infusion Stress ulcer prophylaxis: Protonix Nutrition: Tube feeds through Dobbhoff tube. ( Patient failed bedside swallow evaluation and modified barium swallow) Code Status: Full code Discussed with patient's spouse and updated them with patient's condition and plan of care. I answered all the questions Subjective Date/time seen: 10/24/24 13:25 Interval history: Very weak. Dobbhoff in place. Able to converse. Per nursing staff more awake and alert today compared to yesterday. Had been NPO and tube feed running. at bedside and discussed with her. Review of Systems Review of Systems: All systems reviewed & are unremarkable except as noted in HPI and below Exam Narrative: General: Patient on room air, awake, in no acute distress HEENT:? Pupils equal and reactive bilaterally, Dobhoff tube in place Neck:? Supple Respiratory:? Coarse breath sounds bilaterally, decreased at bases, no wheezing, adequate air entry Cardiac:? Irregularly irregular, rate controlled Abdomen:? Soft, nontender, nondistended, protuberant, hypoactive bowel sounds Extremities:? Bilateral lower extremity edema is improved significantly, palpable pedal pulses Neuro:? Patient is awake, alert, nods to questions, answers yes or no to questions. Following commands, generalized weakness Skin:? Multiple bruising noted upper and lower extremities Psych:? Normal mood Objective Data Vital Signs Vital Signs: Vital Signs - 24 hr 10/23/24 14:00 10/23/24 14:00 10/23/24 14:30 Temperature 99.0 F 99 F Pulse Rate 83 79 88 Respiratory Rate 22 H 26 H Blood Pressure 99/50 L 101/58 L Pulse Oximetry 96 98 Oxygen Delivery Fraction of Inspired Oxygen 10/23/24 14:39 10/23/24 14:45 10/23/24 15:00 Temperature Pulse Rate 89 80 78 Respiratory Rate Blood Pressure 109/54 L 96/57 L 105/60 Pulse Oximetry Oxygen Delivery Fraction of Inspired Oxygen 10/23/24 15:01 10/23/24 15:01 10/23/24 15:09 Temperature Pulse Rate 78 79 Respiratory Rate 20 24 H Blood Pressure Pulse Oximetry 97 Oxygen Delivery Room Air Fraction of Inspired Oxygen 21 10/23/24 15:15 10/23/24 15:30 10/23/24 15:45 Temperature Pulse Rate 81 82 82 Respiratory Rate Blood Pressure 96/54 L 103/57 L 98/56 L Pulse Oximetry Oxygen Delivery Fraction of Inspired Oxygen 10/23/24 16:00 10/23/24 16:00 10/23/24 16:00 Temperature Pulse Rate 85 84 Respiratory Rate Blood Pressure 100/60 Pulse Oximetry 98 Oxygen Delivery Room Air Fraction of Inspired Oxygen 10/23/24 16:00 10/23/24 16:15 10/23/24 16:30 Temperature 98.7 F Pulse Rate 84 82 87 Respiratory Rate 24 H Blood Pressure 100/60 95/58 L 101/54 L Pulse Oximetry 98 Oxygen Delivery Fraction of Inspired Oxygen 10/23/24 16:41 10/23/24 17:05 10/23/24 18:00 Temperature 98.7 F Pulse Rate 82 83 74 Respiratory Rate 23 H Blood Pressure 101/67 112/59 L Pulse Oximetry 97 Oxygen Delivery Fraction of Inspired Oxygen 10/23/24 18:00 10/23/24 20:00 10/23/24 20:00 Temperature 98.4 F Pulse Rate 78 88 79 Respiratory Rate 23 H 24 H Blood Pressure 102/61 100/62 Pulse Oximetry 97 97 Oxygen Delivery Fraction of Inspired Oxygen 10/23/24 20:00 10/23/24 20:14 10/23/24 21:06 Temperature Pulse Rate 80 Respiratory Rate 22 H Blood Pressure Pulse Oximetry 98 98 Oxygen Delivery Room Air Room Air Fraction of Inspired Oxygen 10/23/24 22:00 10/24/24 00:00 10/24/24 00:00 Temperature 98.8 F Pulse Rate 85 88 88 Respiratory Rate 20 Blood Pressure 99/55 L Pulse Oximetry 96 Oxygen Delivery Fraction of Inspired Oxygen 10/24/24 00:00 10/24/24 02:00 10/24/24 02:27 Temperature Pulse Rate 76 90 Respiratory Rate 21 H Blood Pressure Pulse Oximetry 96 Oxygen Delivery Room Air Fraction of Inspired Oxygen 10/24/24 02:48 10/24/24 04:00 10/24/24 04:00 Temperature 98.7 F Pulse Rate 78 81 Respiratory Rate 20 20 Blood Pressure 107/72 Pulse Oximetry 99 98 Oxygen Delivery Room Air Fraction of Inspired Oxygen 10/24/24 04:00 10/24/24 06:00 10/24/24 08:00 Temperature Pulse Rate 85 92 95 Respiratory Rate Blood Pressure Pulse Oximetry 98 Oxygen Delivery Room Air Fraction of Inspired Oxygen 10/24/24 08:00 10/24/24 08:00 10/24/24 08:24 Temperature 98.5 F Pulse Rate 104 H 95 95 Respiratory Rate 18 21 H Blood Pressure 105/65 Pulse Oximetry 98 Oxygen Delivery Fraction of Inspired Oxygen 10/24/24 08:25 10/24/24 08:42 10/24/24 10:00 Temperature Pulse Rate 92 87 Respiratory Rate 26 H Blood Pressure Pulse Oximetry 100 Oxygen Delivery Room Air Fraction of Inspired Oxygen 10/24/24 12:00 10/24/24 12:00 10/24/24 13:00 Temperature 99.5 F Pulse Rate 83 83 Respiratory Rate 23 H Blood Pressure 90/50 L 97/53 L Pulse Oximetry 98 98 Oxygen Delivery Room Air Fraction of Inspired Oxygen Intake/Output Intake/Output: Intake & Output 10/21/24 10/22/24 10/23/24 10/24/24 23:59 23:59 23:59 23:59 Intake Total 2121 739 721 506 Output Total 3000 0 0 0 Balance -879 739 721 506 Meds/Results Medications: Active Medications Generic Name Dose Route Start Last Admin Trade Name Freq PRN Reason Stop Dose Admin Acetaminophen 650 mg 10/08/24 20:49 Acetaminophen 650 Mg Suppository RECTAL Q6H PRN Mild Pain (1-3) or Fever Albuterol/Ipratropium 3 ml 10/09/24 14:00 10/24/24 08:22 Ipratropium 0.5 Mg/Albuterol Sulfate 2.5 Mg Ampul.Neb 3 Ml INHALATION 3 ml Q6HRT CESAR Administration Allopurinol 100 mg 10/09/24 08:00 10/24/24 09:44 Allopurinol 100 Mg Tablet PO 100 mg DAILY@0800 CESAR Administration Apixaban 2.5 mg 10/09/24 09:00 10/24/24 09:44 Apixaban 2.5 Mg Tablet PO 2.5 mg Q12HR CESAR Administration Atorvastatin Calcium 10 mg 10/09/24 09:00 10/24/24 09:44 Atorvastatin 10 Mg Tablet PO 10 mg DAILY CESAR Administration Budesonide 0.5 mg 10/09/24 20:00 10/24/24 08:22 Budesonide Respule Neb 0.5 Mg/2 Ml Amp INHALATION 0.5 mg Q12HRT CESAR Administration Dextrose 12.5 gm 10/08/24 22:06 10/17/24 09:53 Dextrose 50% 25 Gm/50 Ml Syringe IV PUSH 12.5 gm PRN PRN Administration Hypoglycemia Protocol Glucagon 1 mg 10/08/24 22:06 Glucagon For Inj 1 Mg Vial IM PRN PRN Hypoglycemia Protocol Glucose 15 gm 10/08/24 22:06 Glucose Oral Gel 15 Gm Of Glucse In 37.5 Gm Tube PO PRN PRN Hypoglycemia Protocol Dextrose 1,000 mls @ 100 mls/hr 10/08/24 22:06 Dextrose 5% 1,000 Ml IVPB PRN PRN Hypoglycemia Protocol Albumin Human 50 mls @ 999 mls/hr 10/14/24 06:24 10/23/24 14:44 Albutein IVPB 11/13/24 06:23 999 mls/hr Q10M PRN Administration HYPOTENSION Albumin Human 50 mls @ 999 mls/hr 10/24/24 11:18 Albutein IVPB 10/25/24 11:17 Q10M PRN HYPOTENSION Insulin Aspart 4 - 8 units 10/11/24 12:00 10/24/24 12:51 Insulin Aspart (*Bkc) 100 Units/Ml SUB-Q Not Given Q4H CESAR Protocol Insulin Glargine 16 units 10/21/24 09:00 10/24/24 09:44 Insulin Glargine (*Bkc) 100 Units/Ml SUB-Q 16 units DAILY CESAR Administration Midodrine 10 mg 10/20/24 08:00 10/24/24 09:44 Midodrine Hcl 10 Mg Tablet FEED TUBE 10 mg Q6H CESAR Administration Neomycin/Polymyxin/Bacitracin 1 applic 10/17/24 09:00 10/24/24 09:44 Neomycin/Polymyxin/Bacitracin Ointment 15 Gm Tube TOPICAL 1 applic QAM CESAR Administration Pantoprazole Sodium 40 mg 10/09/24 13:45 10/24/24 09:44 Pantoprazole Sodium Iv 40 Mg Vial IV PUSH 40 mg QAM CESAR Administration Polyethylene Glycol 17 gm 10/15/24 10:25 10/24/24 09:22 Polyethylene Glycol 3350 17 Gm Powd.Pack PO Not Given QAM CESAR Fluticasone/Salmeterol 2 puff 10/09/24 08:00 10/09/24 09:26 Fluticasone/Salmeterol 115-21 Mcg Inhaler 1 Puff INHALATION Not Given Q12HRT CESAR Senna/Docusate Sodium 1 tab 10/22/24 10:15 10/24/24 09:44 Senna/Docusate Sodium Tablet PO 1 tab Q12HR CESAR Administration Sodium Chloride 10 ml 10/09/24 14:00 10/24/24 03:57 Central Line Flush IV PUSH 10 ml Q8HR CESAR Administration Sodium Chloride 20 ml 10/09/24 06:24 10/18/24 05:38 Central Line Flush IV PUSH 20 ml PRN PRN Administration after blood draws Sodium Chloride 10 ml 10/20/24 14:00 10/24/24 03:57 Central Line Flush IV PUSH 10 ml Q8HR CESAR Administration Sodium Chloride 10 ml 10/20/24 13:51 Central Line Flush IV PUSH PRN PRN with TPN bag changes Sodium Chloride 20 ml 10/20/24 13:51 Central Line Flush IV PUSH PRN PRN after blood draws Radiology Results: ITS Impressions Pelvis X-Ray 10/08/24 22:22 IMPRESSION: As above. Head CT 10/08/24 23:18 IMPRESSION: No acute intracranial findings. Chest CT 10/08/24 23:27 IMPRESSION: 1. Interstitial thickening in the lower lobes which may indicate pneumonitis. Edema is less likely. 2. Cardiomegaly. 3. Cholelithiasis 4. Splenic cysts unchanged. Abdomen X-Ray 10/13/24 15:22 IMPRESSION: Nasogastric tube in good position and ready for immediate use. Modified Barium Swallow 10/18/24 17:03 IMPRESSION: Oropharyngeal dysphagia including laryngeal penetration with aspiration. Please correlate with speech pathologist findings and specific feeding recommendations. Chest X-Ray 10/20/24 13:56 IMPRESSION: 1. Right upper extremity PICC line tip near the superior cavoatrial junction. 2. Persistent opacities in the right lower lung zone which could represent atelectasis or pneumonia. Labs Labs: Laboratory Results - last 24 hr 10/23/24 10/23/24 10/23/24 15:53 20:20 23:20 WBC RBC Hgb Hct MCV MCH MCHC RDW Plt Count MPV Immature Gran % (Auto) Neut % (Auto) Lymph % (Auto) [place] % (Auto) Eos % (Auto) Baso % (Auto) Lymph # (Auto) [place] # (Auto) Eos # (Auto) Baso # (Auto) Abs Immat Gran (auto) Absolute Neuts (auto) Absolute Nucleated RBC Nucleated RBC % Sodium Potassium Chloride Carbon Dioxide Anion Gap BUN Creatinine Estim Creat Clear Calc Estimated GFR Glucose POC Capillary Glucose 149 H 195 H 198 H Calcium Phosphorus Magnesium Total Bilirubin AST ALT Alkaline Phosphatase Total Protein Albumin 10/24/24 10/24/24 10/24/24 03:59 09:09 12:45 WBC 12.2 H RBC 3.77 L Hgb 11.9 L Hct 37.5 L MCV 99.5 MCH 31.6 MCHC 31.7 L RDW 19.6 H Plt Count 107 L MPV 11.3 H Immature Gran % (Auto) 0.7 H Neut % (Auto) 83.1 H Lymph % (Auto) 5.4 L [place] % (Auto) 10.3 H Eos % (Auto) 0.3 Baso % (Auto) 0.2 Lymph # (Auto) 0.66 L [place] # (Auto) 1.3 H Eos # (Auto) 0.0 Baso # (Auto) 0.0 Abs Immat Gran (auto) 0.08 H Absolute Neuts (auto) 10.1 H Absolute Nucleated RBC 0.000 Nucleated RBC % 0.0 Sodium 136 L Potassium 4.1 Chloride 93 L Carbon Dioxide 32 H Anion Gap 11 BUN 53 H Creatinine 3.56 H Estim Creat Clear Calc 13 Estimated GFR 16 L Glucose 225 H POC Capillary Glucose 210 H 76 Calcium 8.7 Phosphorus 2.0 L Magnesium 2.3 Total Bilirubin 2.4 H AST 45 ALT 21 Alkaline Phosphatase 149 H Total Protein 7.0 Albumin 3.7
[2024-10-24 15:26] LABS: Glucose Point of Care 97 mg/dl (65-105)
--- NOTE | 2024-10-24 18:03 | PC.NURSE ---
This patient, Khalif Yanez, was received from ICU 3 on 10/24/24 at 1743. Patient/family oriented to unit policies and routines. Pt resting in bed with tube feeding infusing at 50ml/h and head of bed elevated. Call light in reach. Will continue to monitor. Zeynep Cota RN
[2024-10-24 20:34] LABS: Glucose Point of Care 176 mg/dl (65-105)
[2024-10-24 23:38] LABS: Glucose Point of Care 178 mg/dl (65-105)
[2024-10-25] VITALS (23 sets, daily range): BP systolic 83–124; BP diastolic 49–65; PULSE 81–103; RESP 18–38; TEMP 36.7–39; O2SAT 94–100
[2024-10-25] MEDS: IPRATROPIUM 0.5 MG/ALBUTEROL SULFATE 2.5 MG AMPUL.NEB 3 ML INHALATION ×4 (02:20→20:33)
[2024-10-25] MEDS: MIDODRINE HCL 10 MG TABLET FEED TUBE ×4 (03:11→20:16)
[2024-10-25] MEDS: CENTRAL LINE FLUSH 10 ML IV PUSH ×6 (03:14→20:17)
[2024-10-25 03:27] LABS: Glucose Point of Care 194 mg/dl (65-105)
[2024-10-25 03:29] LABS: Basophils Percent Auto 0.3 % (0.2-1.2); Eosinophils Percent Auto 0.3 % (0-4.4); Hematocrit 38.7 % (42.0-52.0); Hemoglobin 12.2 g/dL (14.0-18.0); Immature Granulocyte Absolute 0.06 K/mm3 (0.00-0.031); Immature Granulocyte Percent A 0.5 % (0-0.5); Lymphocytes Absolute Auto 0.75 K/mm3 (0.9-3.2); Lymphocytes Percent Auto 6.3 % (18.3-44.2); Mean Corpuscular HGB Conc 31.5 g/dl (32-36); Mean Corpuscular Hemoglobin 31.4 pg (26-34); Mean Corpuscular Volume 99.5 fl (80-100); Mean Platelet Volume 11.5 fl (7.4-10.4); Monocytes Absolute Auto 1.2 K/mm3 (0.1-0.6); Monocytes Percent Auto 10.4 % (2.6-8.5); Neutrophils Absolute Auto 9.7 K/mm3 (1.3-6.7); Neutrophils Percent Auto 82.2 % (45.5-73.1); Platelet Count Result 106 k/mm3 (150-375); Red Blood Count 3.89 M/mm3 (4.6-6.20); Red Cell Distribution Width 20.3 % (11.5-14.5); White Blood Count 11.8 K/mm3 (4.5-10.0)
[2024-10-25 03:40] LABS: Alanine Aminotransferase 21 U/L (6-50); Albumin Level 3.9 g/dL (3.5-5.1); Alkaline Phosphatase 136 U/L (38-126); Anion Gap 17 mmol/L (4-12); Aspartate Amino Transferase 44 U/L (17-59); Bilirubin,Total 2.9 mg/dL (0.2-1.3); Blood Urea Nitrogen 83 mg/dL (9-20); Carbon Dioxide 27 mmol/L (22-30); Chloride 94 mmol/L (98-107); Estimated CRCL calculation 9 ml/min; Estimated Glomerular Filt Rate 11; Glucose 187 mg/dL (65-110); Magnesium 2.5 mg/dL (1.6-2.3); Phosphorus 2.9 mg/dL (2.5-4.5); Potassium 4.5 mmol/L (3.4-5.0); Sodium 138 mmol/L (137-145)
[2024-10-25] MEDS: BUDESONIDE RESPULE NEB 0.5 MG/2 ML AMP INHALATION ×2 (07:44→20:32)
[2024-10-25 07:57] LABS: Glucose Point of Care 321 mg/dl (65-105)
[2024-10-25] MEDS: INSULIN GLARGINE (*BKC) 100 UNITS/ML 16 UNITS SUB-Q (08:06)
[2024-10-25] MEDS: INSULIN ASPART (*BKC) 100 UNITS/ML SUB-Q ×3 (08:10→21:20)
--- NOTE | 2024-10-25 08:41 | PCOTNOTE ---
Per RN, Patient unable to participate, having a declined in medical status, having Patient's come in to spaek with the MD about Patient.
[2024-10-25 10:16] LABS: Alveolar/Arterial O2 Gradient 42.9 mmHg; Base Excess ABG 1.5 mEq/l (+/-2.0); Fractional Inspired Oxygen 21 %; HCO3 ABG 23.6 mEq/l (22.0-26.0); Oxygen Content ABG 17.5 %vol (16.0-22.0); Oxygen Saturation ABG 95.8 % (95.0-100.0); Oxyhemoglobin 92.7 % THb (90.0-100.0); PCO2 ABG 30.1 mmHg (35.0-45.0); PO2 ABG 70.8 mmHg (80.0-100.0); PO2 FiO2 Ratio Arterial Blood 3.37 %; Total Hemoglobin 13.4 g/dL (12.0-18.0)
[2024-10-25 10:19] LABS: Site Drawn RIGHT RADIAL; pH ABG 7.512 (7.350-7.450)
[2024-10-25 10:20] LABS: Device ROOM AIR; Modified Allen's Test Pass
[2024-10-25] MEDS: ACETAMINOPHEN ELIXIR 325 MG/10.15 ML UDC 650 MG PO (10:41)
--- NOTE | 2024-10-25 10:46 | P.PNNP_ITS ---
Progress Note: A&P Assessment and Plan (1) End-stage renal disease (ESRD): Code(s): N18.6 - End stage renal disease Status: Chronic Assessment and Plan: * HD treatment today rescheduled * hematoma over AV access make attempting dialysis treatment risky for further complications * no critical electrolytes and volume status stable * however, BUN has risen so clearance is still an issue * re-attempt dialysis tomorrow (2) Septic shock: Code(s): A41.9 - Sepsis, unspecified organism; R65.21 - Severe sepsis with septic shock Status: Acute Assessment and Plan: * recent cultures negative. * Blood pressure stable off levophed * HOWEVER -- concern for new infection given altered mental status and fever * repeat cultures * plan further imaging (CT head/chest/abdomen/pelvis) * antibiotics * follow hemodynamics (3) Acute respiratory failure: Code(s): J96.00 - Acute respiratory failure, unspecified whether with hypoxia or hypercapnia Status: Acute Assessment and Plan: * resolved * multifactorial: * pneumonia * altered mental status * need for airway protection * fluid * follow closely given altered mental status (4) Bacteremia: Code(s): R78.81 - Bacteremia Status: Acute Assessment and Plan: * previous cultures noted * repeat culture negative * TTE and ROBERT negative for vegetations * on antibiotics * HOWEVER, given fever and AMS, concern is for another infection... * follow repeat cultures (5) Pneumonia: Code(s): J18.9 - Pneumonia, unspecified organism Status: Acute Assessment and Plan: * suggested by previous imaging (CXR + CT scan) * however, recent CXR suspicious for (6) Influenza A: Code(s): J10.1 - Influenza due to other identified influenza virus with other respiratory manifestations Status: Acute Assessment and Plan: * finished course of Tamiflu (7) Altered mental status: Code(s): R41.82 - Altered mental status, unspecified Status: Acute Assessment and Plan: * worse today * CT of head negative * complicated by fever * further testing being done... (8) Anemia: Qualifiers: Anemia type: unspecified type Qualified Code(s): D64.9 - Anemia, unspecified Code(s): D64.9 - Anemia, unspecified Status: Chronic Assessment and Plan: * due to ESRD * hold Epogen since H/H supratherapeutic (Hgb > 11) * follow trend of H/H (9) Diabetes: Qualifiers: Diabetes mellitus type: type 2 Diabetes mellitus fdc insulin use: without fdc use Diabetes mellitus complication status: with kidney complications Diabetes mellitus complication detail: with chronic kidney disease Chronic kidney disease stage: on chronic dialysis Qualified Code(s): E 11.22 - Type 2 diabetes mellitus with diabetic chronic kidney disease; N18.6 - End stage renal disease; Z99.2 - Dependence on renal dialysis Code(s): E11.9 - Type 2 diabetes mellitus without complications Status: Chronic Assessment and Plan: * follow accu-cheks * glycemic control per hospitalist Long and extensive discussion (> 20 minutes) with and mulitple family members regarding change in patient's clinical condition -- worsening mental status/lethargy, fever, inability to do dialysis due to hematoma over AV access, and the concern for a possible new infection/early sepsis; they are aware further testing is underway including imaging/blood work and well as re- initiation of antibiotic therapy and may need further escalation of care depending further test results. They all appeared to voice understanding. Will continue to follow. L Subjective Date/time seen: 10/25/24 10:46 Interval history: Follow-up for end stage renal disease on hemodialysis. Chart reviewed since last seen -- assuming care from Dr. Crouch; quite lethargic with decreased responsiveness at the time of my visit -- this apparently is a significant change in the last 24 hours; also noted to be febrile as well; dialysis initially schedule earlier today but noted to have a significant hematoma over AV access so dialysis treatment re-scheduled for tomorrow on the hope hematoma will have decreased in size. Exam 2 Narrative: General: ill appearing male laying in bed - lethargic/somnolent Heart: IRRR, normal S1 and S2 Lungs: clear anteriorly; decreased at bases Abdomen: Bowel sounds positive and soft Extremities: no edema noted Skin: chronic venous stasis changes in the shins Objective Data Vital Signs Vital Signs: Vital Signs Temp Pulse Resp BP Pulse Ox O2 Del Method FiO2 10/25/24 10:41 102.2 F H 10/25/24 10:03 102.2 F H 102 H 38 H 95/65 L 10/25/24 08:00 100.4 F H 103 H 22 H 113/57 L 97 10/25/24 07:59 98 20 10/25/24 07:47 92 20 10/25/24 07:47 98 Room Air 10/25/24 06:00 102 H 10/25/24 04:00 102 H 10/25/24 04:00 Room Air 10/25/24 03:50 98.2 F 97 19 105/51 L 95 10/25/24 02:32 85 22 H 10/25/24 02:20 85 22 H 10/25/24 02:00 99 10/25/24 00:00 90 10/25/24 00:00 99.9 F H 98 18 99/56 L 94 10/24/24 23:00 Room Air 10/24/24 22:00 94 10/24/24 20:50 55 L 24 H 10/24/24 20:30 55 L 98 Room Air 21 10/24/24 20:30 55 L 24 H 10/24/24 20:00 89 10/24/24 20:00 99.1 F 88 24 H 104/53 L 95 10/24/24 18:00 85 10/24/24 17:00 98.3 F 95 25 H 101/63 98 10/24/24 16:00 82 10/24/24 16:00 89 97 Room Air 10/24/24 14:00 93 10/24/24 13:34 84 26 H 10/24/24 13:26 93 25 H 10/24/24 13:00 97/53 L Intake/Output Intake/Output: Intake & Output 10/22/24 10/23/24 10/24/24 10/25/24 23:59 23:59 23:59 23:59 Intake Total 739 014 138 3803 Output Total 0 0 0 Balance 739 292 586 0965 Meds/Results Medications: Active Medications Generic Name Dose Route Start Last Admin Trade Name Freq PRN Reason Stop Dose Admin Acetaminophen 650 mg 10/08/24 20:49 Acetaminophen 650 Mg Suppository RECTAL Q6H PRN Mild Pain (1-3) or Fever Albuterol/Ipratropium 3 ml 10/09/24 14:00 10/25/24 07:43 Ipratropium 0.5 Mg/Albuterol Sulfate 2.5 Mg Ampul.Neb 3 Ml INHALATION 3 ml Q6HRT CESAR Administration Allopurinol 100 mg 10/09/24 08:00 10/25/24 11:53 Allopurinol 100 Mg Tablet PO 100 mg DAILY@0800 CESAR Administration Apixaban 2.5 mg 10/09/24 09:00 10/25/24 11:37 Apixaban 2.5 Mg Tablet PO Not Given Q12HR CESAR Atorvastatin Calcium 10 mg 10/09/24 09:00 10/25/24 11:53 Atorvastatin 10 Mg Tablet PO 10 mg DAILY CESAR Administration Budesonide 0.5 mg 10/09/24 20:00 10/25/24 07:44 Budesonide Respule Neb 0.5 Mg/2 Ml Amp INHALATION 0.5 mg Q12HRT CESAR Administration Dextrose 12.5 gm 10/08/24 22:06 10/17/24 09:53 Dextrose 50% 25 Gm/50 Ml Syringe IV PUSH 12.5 gm PRN PRN Administration Hypoglycemia Protocol Glucagon 1 mg 10/08/24 22:06 Glucagon For Inj 1 Mg Vial IM PRN PRN Hypoglycemia Protocol Glucose 15 gm 10/08/24 22:06 Glucose Oral Gel 15 Gm Of Glucse In 37.5 Gm Tube PO PRN PRN Hypoglycemia Protocol Dextrose 1,000 mls @ 100 mls/hr 10/08/24 22:06 Dextrose 5% 1,000 Ml IVPB PRN PRN Hypoglycemia Protocol Albumin Human 50 mls @ 999 mls/hr 10/14/24 06:24 10/23/24 14:44 Albutein IVPB 11/13/24 06:23 999 mls/hr Q10M PRN Administration HYPOTENSION Vancomycin HCl 1,750 mg in 500 mls @ 250 mls/hr 10/25/24 12:00 10/25/24 11:45 Vancomycin 1,750 Mg/Ns 500 Ml IVPB 10/25/24 13:59 250 mls/hr ONCE ONE Administration Piperacillin Sod/Tazobactam Sod 2.25 gm in 50 mls @ 100 mls/hr 10/25/24 11:00 10/25/24 11:36 Zosyn 2.25 Gm/Ns 50 Ml IVPB 100 mls/hr Q8H CESAR Administration Insulin Aspart 4 - 8 units 10/11/24 12:00 10/25/24 08:10 Insulin Aspart (*Bkc) 100 Units/Ml SUB-Q 6 units Q4H CESAR Administration Protocol Insulin Glargine 16 units 10/21/24 09:00 10/25/24 08:06 Insulin Glargine (*Bkc) 100 Units/Ml SUB-Q 16 units DAILY CESAR Administration Midodrine 10 mg 10/20/24 08:00 10/25/24 08:05 Midodrine Hcl 10 Mg Tablet FEED TUBE 10 mg Q6H CESAR Administration Neomycin/Polymyxin/Bacitracin 1 applic 10/17/24 09:00 10/25/24 11:53 Neomycin/Polymyxin/Bacitracin Ointment 15 Gm Tube TOPICAL 1 applic QAM CESAR Administration Pantoprazole Sodium 40 mg 10/09/24 13:45 10/24/24 09:44 Pantoprazole Sodium Iv 40 Mg Vial IV PUSH 40 mg QAM CESAR Administration Polyethylene Glycol 17 gm 10/15/24 10:25 10/25/24 11:37 Polyethylene Glycol 3350 17 Gm Powd.Pack PO Not Given QAM CESAR Fluticasone/Salmeterol 2 puff 10/09/24 08:00 10/09/24 09:26 Fluticasone/Salmeterol 115-21 Mcg Inhaler 1 Puff INHALATION Not Given Q12HRT CESAR Senna/Docusate Sodium 1 tab 10/22/24 10:15 10/25/24 11:37 Senna/Docusate Sodium Tablet PO Not Given Q12HR CESAR Sodium Chloride 10 ml 10/09/24 14:00 10/25/24 03:14 Central Line Flush IV PUSH 10 ml Q8HR CESAR Administration Sodium Chloride 20 ml 10/09/24 06:24 10/18/24 05:38 Central Line Flush IV PUSH 20 ml PRN PRN Administration after blood draws Sodium Chloride 10 ml 10/20/24 14:00 10/25/24 03:14 Central Line Flush IV PUSH 10 ml Q8HR CESAR Administration Sodium Chloride 10 ml 10/20/24 13:51 Central Line Flush IV PUSH PRN PRN with TPN bag changes Sodium Chloride 20 ml 10/20/24 13:51 Central Line Flush IV PUSH PRN PRN after blood draws Vancomycin HCl 1 each 10/25/24 10:45 10/25/24 11:57 Vancomycin For Hemodialysis IVPB 1 each PRN PRN Administration Vancomycin Protocol Radiology Results: ITS Impressions Pelvis X-Ray 10/08/24 22:22 IMPRESSION: As above. Chest CT 10/08/24 23:27 IMPRESSION: 1. Interstitial thickening in the lower lobes which may indicate pneumonitis. Edema is less likely. 2. Cardiomegaly. 3. Cholelithiasis 4. Splenic cysts unchanged. Abdomen X-Ray 10/13/24 15:22 IMPRESSION: Nasogastric tube in good position and ready for immediate use. Modified Barium Swallow 10/18/24 17:03 IMPRESSION: Oropharyngeal dysphagia including laryngeal penetration with aspiration. Please correlate with speech pathologist findings and specific feeding recommendations. Chest X-Ray 10/25/24 10:22 IMPRESSION: Minimal opacification the lung bases more on the left side suggestive of atelectasis versus pneumonia. Improvement compared to previous study is noted. Underlying pulmonary edema is not excluded. Head CT 10/25/24 10:28 IMPRESSION: No acute intracranial findings. Labs Labs: Laboratory Tests 10/25/24 03:21 10/25/24 03:22 Calcium 9.0 Phosphorus 2.9 Magnesium 2.5 H Total Bilirubin 2.9 H AST 44 ALT 21 Alkaline Phosphatase 136 H Total Protein 7.0 Albumin 3.9
[2024-10-25 11:25] LABS: Ammonia 45 umol/L (9-30)
[2024-10-25 11:33] LABS: Lactic Acid Reflex 2.8 mmol/L (0.7-2.0)
[2024-10-25] MEDS: PIPERACILLIN/TAZ 2.25G/NS 50ML 2.25 GM/50 ML BAG IVPB ×2 (11:36→17:39)
[2024-10-25] MEDS: ALBUMIN HUMAN 25% 12.5 GM/50ML 50 ML IVPB (11:37)
[2024-10-25] MEDS: VANCOMYCIN 1,750 MG/NS 500 ML 1,750 MG/500 ML BAG 250 MG IVPB (11:45)
[2024-10-25] MEDS: NEOMYCIN/POLYMYXIN/BACITRACIN OINTMENT 15 GM TUBE 1 APPLIC TOPICAL (11:53)
[2024-10-25] MEDS: allopurinoL 100 MG TABLET PO (11:53)
[2024-10-25] MEDS: ATORVASTATIN 10 MG TABLET PO (11:53)
[2024-10-25 12:05] LABS: Procalcitonin 4.9 ng/mL
[2024-10-25 12:39] LABS: Glucose Point of Care 242 mg/dl (65-105)
[2024-10-25 13:14] LABS: Reflex Lactic Acid Yes or No Add Lactic
[2024-10-25 14:41] LABS: Lactic Acid 1.1 mmol/L (0.7-2.0)
[2024-10-25] MEDS: LACTULOSE 20 GM/30 ML UDC FEED TUBE (15:52)
[2024-10-25] MEDS: PANTOPRAZOLE SODIUM IV 40 MG VIAL IV PUSH (15:52)
--- NOTE | 2024-10-25 15:58 | PM.IMPN ---
Progress Note: A&P Assessment and Plan (1) Respiratory failure: Code(s): J96.90 - Respiratory failure, unspecified, unspecified whether with hypoxia or hypercapnia Status: Acute Assessment and Plan: Acute respiratory failure likely related to pneumonia, altered mental status, airway protection -10/08: Intubated -10/16: Extubated -continue bronchodilators and Pulmicort -chest x-ray reviewed, will have respiratory therapist encourage incentive spirometry, EzPAP -10/17 pt failed his bedside swallow -10/18: Failed modified barium swallow -10/19: appreciate IR placing Dobbhoff tube, patient started on tube feeds and tolerating -PT/OT to continue to follow, up in chair, significant weakness Recheck chest x-ray with congestive changes 10/24/2024 10/25/2024: Mildly tachypneic. ABG with respiratory alkalosis suspect aspiration/sepsis (2) Septic shock: Code(s): A41.9 - Sepsis, unspecified organism; R65.21 - Severe sepsis with septic shock Status: Acute Assessment and Plan: Patient presented with altered mental status, hypotension, lactic acidosis -septic shock likely related to bacteremia, bilateral pneumonia along with influenza -status post azithromycin, ceftriaxone and vancomycin Remains off all antibiotics -10/08: Blood cultures growing strep mitis -10/10 repeat set of blood culture sent and negative till now -TTE and ROBERT are negative for evidence of valve vegetations -patient remained on Levophed but off of epinephrine and vasopressin, maintain SBP >90 mmHg. (patient's blood pressure is normally runs low according to his family) -weaning hydrocortisone -patient on midodrine, currently NPO after extubation, patient received above tube and hence restarted midodrine after the 10/18: Still requiring Levophed, afebrile, WBC trending down. 10/18: Blood cultures negative x2 10/20: Levophed being weaned, increased midodrine to q.6 hours. 10/21: Off Levophed since 8:30 p.m. on 10/20/2024. Remains on midodrine 10/25 patient febrile. Pancultured. Start vancomycin and Zosyn. Chest x-ray improved congestion. CT chest abdomen pelvis with right lower lobe pneumonia. Vanc Zosyn as ordered will be continued. (3) Bacteremia: Code(s): R78.81 - Bacteremia Status: Acute Assessment and Plan: 10/08: Blood cultures growing strep mitis group 3/ repeat set of blood culture sent and negative till now Completed antibiotic course TTE as below ROBERT negative for evidence of vegetation Pancultured again 10/25/2024 (4) Influenza A: Code(s): J10.1 - Influenza due to other identified influenza virus with other respiratory manifestations Status: Acute Assessment and Plan: Completed a course of renally dosed Tamiflu (5) Pneumonia: Code(s): J18.9 - Pneumonia, unspecified organism Status: Acute Assessment and Plan: Chest x-ray showed pneumonia, CT chest showed pneumonitis, -off all antibiotic Repeat CT chest with right lower lobe pneumonia suspect aspiration re-initiated vancomycin and Zosyn 10/25/2024 (6) Altered mental status: Code(s): R41.82 - Altered mental status, unspecified Status: Acute Assessment and Plan: Head CT was negative for any acute changes at the time presentation Slowly improving Sudden decline 10/25/2024 with altered mental status. CT head is negative Suspect sepsis with fever Ammonia level high I will give a dose of lactulose (7) End-stage renal disease on hemodialysis: Code(s): N18.6 - End stage renal disease; Z99.2 - Dependence on renal dialysis Status: Acute Assessment and Plan: End-stage renal disease on dialysis (M, W, F) -dialysis per Nephrology. 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: without alf use Diabetes mellitus complication status: with kidney complications Diabetes mellitus complication detail: with chronic kidney disease Chronic kidney disease stage: on chronic dialysis Qualified Code(s): E11.22 - Type 2 diabetes mellitus with diabetic chronic kidney disease; N18.6 - End stage renal disease; Z99.2 - Dependence on renal dialysis Code(s): E11.9 - Type 2 diabetes mellitus without complications Status: Chronic Assessment and Plan: Continue current sliding scale and -Lantus discontinued as patient NPO (9) Atrial fibrillation: Code(s): I48.91 - Unspecified atrial fibrillation Status: Acute Assessment and Plan: Patient has a history of atrial fibrillation, remains in AFib, rate controlled -has been on apixaban, post extubation was started heparin infusion and apixaban was held as he did not have and OG/NG tube -patient failed his bedside swallow and modified barium swallow -10/19/2024 Dobbhoff tube was inserted by IR, apixaban was restarted and heparin infusion was discontinued Will hold on apixaban due to diffuse ecchymosis (10) Dysphagia: Code(s): R13.10 - Dysphagia, unspecified Status: Acute Assessment and Plan: Failed swallow evaluation Currently on Dobbhoff If no improvement will likely need G-tube placement discussed with the family Plan DVT prophylaxis: Restarted Eliquis on 10/19 after patient got his Dobbhoff tube placed, off heparin infusion Stress ulcer prophylaxis: Protonix Nutrition: Tube feeds through Dobbhoff tube. ( Patient failed bedside swallow evaluation and modified barium swallow) Code Status: Full code Discussed with patient's spouse and updated them with patient's condition and plan of care. I answered all the questions Subjective Date/time seen: 10/25/24 15:58 Interval history: Patient less responsive today. Discussed with the family. Febrile. Suspected sepsis. Discussed with nephrology and body recall instructor. Patient has bruise over fistula and hence could not be dialyzed due to issue with the access Review of Systems Review of Systems: ROS unobtainable: Yes unobtainable due to medical condition Exam Narrative: General: Patient on room air, somnolent mildly tachypneic HEENT:? Pupils equal and reactive bilaterally, Dobhoff tube in place Neck:? Supple Respiratory:? Coarse breath sounds bilaterally, decreased at bases, no wheezing, adequate air entry Cardiac:? Irregularly irregular, rate controlled Abdomen:? Soft, nontender, nondistended, protuberant, hypoactive bowel sounds Extremities:? Bilateral lower extremity edema is improved significantly, palpable pedal pulses Neuro:? Patient is somnolent not Following commands, generalized weakness Skin:? Multiple bruising noted upper and lower extremities Psych:? Could not be evaluated Objective Data Vital Signs Vital Signs: Vital Signs - 24 hr 10/24/24 16:00 10/24/24 16:00 10/24/24 17:00 Temperature 98.3 F Pulse Rate 89 82 95 Respiratory Rate 25 H Blood Pressure 101/63 Pulse Oximetry 97 98 Oxygen Delivery Room Air Fraction of Inspired Oxygen 10/24/24 18:00 10/24/24 20:00 10/24/24 20:00 Temperature 99.1 F Pulse Rate 85 88 89 Respiratory Rate 24 H Blood Pressure 104/53 L Pulse Oximetry 95 Oxygen Delivery Fraction of Inspired Oxygen 10/24/24 20:30 10/24/24 20:30 10/24/24 20:50 Temperature Pulse Rate 55 L 55 L 55 L Respiratory Rate 24 H 24 H Blood Pressure Pulse Oximetry 98 Oxygen Delivery Room Air Fraction of Inspired Oxygen 21 10/24/24 22:00 10/24/24 23:00 10/25/24 00:00 Temperature 99.9 F H Pulse Rate 94 98 Respiratory Rate 18 Blood Pressure 99/56 L Pulse Oximetry 94 Oxygen Delivery Room Air Fraction of Inspired Oxygen 10/25/24 00:00 10/25/24 02:00 10/25/24 02:20 Temperature Pulse Rate 90 99 85 Respiratory Rate 22 H Blood Pressure Pulse Oximetry Oxygen Delivery Fraction of Inspired Oxygen 10/25/24 02:32 10/25/24 03:50 10/25/24 04:00 Temperature 98.2 F Pulse Rate 85 97 Respiratory Rate 22 H 19 Blood Pressure 105/51 L Pulse Oximetry 95 Oxygen Delivery Room Air Fraction of Inspired Oxygen 10/25/24 04:00 10/25/24 06:00 10/25/24 07:47 Temperature Pulse Rate 102 H 102 H Respiratory Rate Blood Pressure Pulse Oximetry 98 Oxygen Delivery Room Air Fraction of Inspired Oxygen 10/25/24 07:47 10/25/24 07:59 10/25/24 08:00 Temperature 100.4 F H Pulse Rate 92 98 103 H Respiratory Rate 20 20 22 H Blood Pressure 113/57 L Pulse Oximetry 97 Oxygen Delivery Fraction of Inspired Oxygen 10/25/24 08:00 10/25/24 10:00 10/25/24 10:03 Temperature 102.2 F H Pulse Rate 103 H 94 102 H Respiratory Rate 38 H Blood Pressure 95/65 L Pulse Oximetry Oxygen Delivery Fraction of Inspired Oxygen 10/25/24 10:41 10/25/24 12:00 10/25/24 12:00 Temperature 102.2 F H 100.4 F H Pulse Rate 81 89 Respiratory Rate 24 H Blood Pressure 99/49 L Pulse Oximetry 96 Oxygen Delivery Fraction of Inspired Oxygen 10/25/24 13:35 10/25/24 13:35 10/25/24 13:47 Temperature Pulse Rate 89 87 Respiratory Rate 20 20 Blood Pressure Pulse Oximetry 100 Oxygen Delivery Room Air Fraction of Inspired Oxygen 10/25/24 14:00 Temperature Pulse Rate 87 Respiratory Rate Blood Pressure Pulse Oximetry Oxygen Delivery Fraction of Inspired Oxygen Intake/Output Intake/Output: Intake & Output 10/22/24 10/23/24 10/24/24 10/25/24 23:59 23:59 23:59 23:59 Intake Total 739 766 392 6009 Output Total 0 0 0 Balance 739 088 707 [id number] Meds/Results Medications: Active Medications Generic Name Dose Route Start Last Admin Trade Name Freq PRN Reason Stop Dose Admin Acetaminophen 650 mg 10/08/24 20:49 Acetaminophen 650 Mg Suppository RECTAL Q6H PRN Mild Pain (1-3) or Fever Albuterol/Ipratropium 3 ml 10/09/24 14:00 10/25/24 13:35 Ipratropium 0.5 Mg/Albuterol Sulfate 2.5 Mg Ampul.Neb 3 Ml INHALATION 3 ml Q6HRT CESAR Administration Allopurinol 100 mg 10/09/24 08:00 10/25/24 11:53 Allopurinol 100 Mg Tablet PO 100 mg DAILY@0800 CESAR Administration Apixaban 2.5 mg 10/09/24 09:00 10/25/24 11:37 Apixaban 2.5 Mg Tablet PO Not Given Q12HR CESAR Atorvastatin Calcium 10 mg 10/09/24 09:00 10/25/24 11:53 Atorvastatin 10 Mg Tablet PO 10 mg DAILY CESAR Administration Budesonide 0.5 mg 10/09/24 20:00 10/25/24 07:44 Budesonide Respule Neb 0.5 Mg/2 Ml Amp INHALATION 0.5 mg Q12HRT CESAR Administration Dextrose 12.5 gm 10/08/24 22:06 10/17/24 09:53 Dextrose 50% 25 Gm/50 Ml Syringe IV PUSH 12.5 gm PRN PRN Administration Hypoglycemia Protocol Glucagon 1 mg 10/08/24 22:06 Glucagon For Inj 1 Mg Vial IM PRN PRN Hypoglycemia Protocol Glucose 15 gm 10/08/24 22:06 Glucose Oral Gel 15 Gm Of Glucse In 37.5 Gm Tube PO PRN PRN Hypoglycemia Protocol Dextrose 1,000 mls @ 100 mls/hr 10/08/24 22:06 Dextrose 5% 1,000 Ml IVPB PRN PRN Hypoglycemia Protocol Albumin Human 50 mls @ 999 mls/hr 10/14/24 06:24 10/23/24 14:44 Albutein IVPB 11/13/24 06:23 999 mls/hr Q10M PRN Administration HYPOTENSION Piperacillin Sod/Tazobactam Sod 2.25 gm in 50 mls @ 100 mls/hr 10/25/24 11:00 10/25/24 11:36 Zosyn 2.25 Gm/Ns 50 Ml IVPB 100 mls/hr Q8H CESAR Administration Insulin Aspart 4 - 8 units 10/11/24 12:00 10/25/24 14:54 Insulin Aspart (*Bkc) 100 Units/Ml SUB-Q Not Given Q4H CESAR Protocol Insulin Glargine 16 units 10/21/24 09:00 10/25/24 08:06 Insulin Glargine (*Bkc) 100 Units/Ml SUB-Q 16 units DAILY CESAR Administration Lactulose 20 gm 10/25/24 13:15 Lactulose 20 Gm/30 Ml Udc FEED TUBE QAM CESAR Midodrine 10 mg 10/20/24 08:00 10/25/24 08:05 Midodrine Hcl 10 Mg Tablet FEED TUBE 10 mg Q6H CESAR Administration Neomycin/Polymyxin/Bacitracin 1 applic 10/17/24 09:00 10/25/24 11:53 Neomycin/Polymyxin/Bacitracin Ointment 15 Gm Tube TOPICAL 1 applic QAM CESAR Administration Pantoprazole Sodium 40 mg 10/09/24 13:45 10/24/24 09:44 Pantoprazole Sodium Iv 40 Mg Vial IV PUSH 40 mg QAM CESAR Administration Polyethylene Glycol 17 gm 10/15/24 10:25 10/25/24 11:37 Polyethylene Glycol 3350 17 Gm Powd.Pack PO Not Given QAM CESAR Fluticasone/Salmeterol 2 puff 10/09/24 08:00 10/09/24 09:26 Fluticasone/Salmeterol 115-21 Mcg Inhaler 1 Puff INHALATION Not Given Q12HRT CESAR Senna/Docusate Sodium 1 tab 10/22/24 10:15 10/25/24 11:37 Senna/Docusate Sodium Tablet PO Not Given Q12HR CESAR Sodium Chloride 10 ml 10/09/24 14:00 10/25/24 03:14 Central Line Flush IV PUSH 10 ml Q8HR CESAR Administration Sodium Chloride 20 ml 10/09/24 06:24 10/18/24 05:38 Central Line Flush IV PUSH 20 ml PRN PRN Administration after blood draws Sodium Chloride 10 ml 10/20/24 14:00 10/25/24 03:14 Central Line Flush IV PUSH 10 ml Q8HR CESAR Administration Sodium Chloride 10 ml 10/20/24 13:51 Central Line Flush IV PUSH PRN PRN with TPN bag changes Sodium Chloride 20 ml 10/20/24 13:51 Central Line Flush IV PUSH PRN PRN after blood draws Vancomycin HCl 1 each 10/25/24 10:45 10/25/24 11:57 Vancomycin For Hemodialysis IVPB 1 each PRN PRN Administration Vancomycin Protocol Radiology Results: ITS Impressions Pelvis X-Ray 10/08/24 22:22 IMPRESSION: As above. Chest CT 10/08/24 23:27 IMPRESSION: 1. Interstitial thickening in the lower lobes which may indicate pneumonitis. Edema is less likely. 2. Cardiomegaly. 3. Cholelithiasis 4. Splenic cysts unchanged. Abdomen X-Ray 10/13/24 15:22 IMPRESSION: Nasogastric tube in good position and ready for immediate use. Modified Barium Swallow 10/18/24 17:03 IMPRESSION: Oropharyngeal dysphagia including laryngeal penetration with aspiration. Please correlate with speech pathologist findings and specific feeding recommendations. Chest X-Ray 10/25/24 10:22 IMPRESSION: Minimal opacification the lung bases more on the left side suggestive of atelectasis versus pneumonia. Improvement compared to previous study is noted. Underlying pulmonary edema is not excluded. Head CT 10/25/24 10:28 IMPRESSION: No acute intracranial findings. Chest/Abdomen/Pelvis CT 10/25/24 13:03 IMPRESSION: CHEST: 1. Cardiomegaly. 2. Groundglass appearance in the right upper lobe which may indicate atelectasis versus pneumonia versus edema. 3. Opacification in the right lower lobe suggestive of pneumonia. ABDOMEN/PELVIS: 1. No evidence of appendicitis, diverticulitis or intestinal obstruction. 2. Rounded density seen in the left kidney midpole which may be a mass with calcification. Further evaluation advised. 3. Bilateral kidney cysts. Bilateral kidney stones. 4. Splenic cysts unchanged. 5. Cholelithiasis. 6. Anterior abdominal wall hernia with bowel content and no obstruction. Labs Labs: Laboratory Results - last 24 hr 10/24/24 10/24/24 10/25/24 20:13 23:34 03:13 WBC RBC Hgb Hct MCV MCH MCHC RDW Plt Count MPV Immature Gran % (Auto) Neut % (Auto) Lymph % (Auto) [place] % (Auto) Eos % (Auto) Baso % (Auto) Lymph # (Auto) [place] # (Auto) Eos # (Auto) Baso # (Auto) Abs Immat Gran (auto) Absolute Neuts (auto) Absolute Nucleated RBC Nucleated RBC % Puncture Site ABG pH ABG pCO2 ABG pO2 ABG PO2/FiO2 Ratio ABG HCO3 ABG O2 Saturation ABG O2 Content ABG Base Excess A-a Gradient Oxyhemoglobin Total Hemoglobin O2 Delivery Device O2 Liters/Min FiO2 Sodium Potassium Chloride Carbon Dioxide Anion Gap BUN Creatinine Estim Creat Clear Calc Estimated GFR Glucose POC Capillary Glucose 176 H 178 H 194 H Lactic Acid Calcium Phosphorus Magnesium Total Bilirubin AST ALT Alkaline Phosphatase Ammonia Total Protein Albumin Procalcitonin 10/25/24 10/25/24 10/25/24 03:21 03:22 07:33 WBC 11.8 H RBC 3.89 L Hgb 12.2 L Hct 38.7 L MCV 99.5 MCH 31.4 MCHC 31.5 L RDW 20.3 H Plt Count 106 L MPV 11.5 H Immature Gran % (Auto) 0.5 Neut % (Auto) 82.2 H Lymph % (Auto) 6.3 L [place] % (Auto) 10.4 H Eos % (Auto) 0.3 Baso % (Auto) 0.3 Lymph # (Auto) 0.75 L [place] # (Auto) 1.2 H Eos # (Auto) 0.0 Baso # (Auto) 0.0 Abs Immat Gran (auto) 0.06 H Absolute Neuts (auto) 9.7 H Absolute Nucleated RBC 0.000 Nucleated RBC % 0.0 Puncture Site ABG pH ABG pCO2 ABG pO2 ABG PO2/FiO2 Ratio ABG HCO3 ABG O2 Saturation ABG O2 Content ABG Base Excess A-a Gradient Oxyhemoglobin Total Hemoglobin O2 Delivery Device O2 Liters/Min FiO2 Sodium 138 Potassium 4.5 Chloride 94 L Carbon Dioxide 27 Anion Gap 17 H BUN 83 H D Creatinine 5.06 H Estim Creat Clear Calc 9 Estimated GFR 11 L Glucose 187 H POC Capillary Glucose 321 H Lactic Acid Calcium 9.0 Phosphorus 2.9 Magnesium 2.5 H Total Bilirubin 2.9 H AST 44 ALT 21 Alkaline Phosphatase 136 H Ammonia Total Protein 7.0 Albumin 3.9 Procalcitonin 10/25/24 10/25/24 10/25/24 10:12 10:52 11:08 WBC RBC Hgb Hct MCV MCH MCHC RDW Plt Count MPV Immature Gran % (Auto) Neut % (Auto) Lymph % (Auto) [place] % (Auto) Eos % (Auto) Baso % (Auto) Lymph # (Auto) [place] # (Auto) Eos # (Auto) Baso # (Auto) Abs Immat Gran (auto) Absolute Neuts (auto) Absolute Nucleated RBC Nucleated RBC % Puncture Site Right radial ABG pH 7.512 H* ABG pCO2 30.1 L ABG pO2 70.8 L ABG PO2/FiO2 Ratio 3.37 ABG HCO3 23.6 ABG O2 Saturation 95.8 ABG O2 Content 17.5 ABG Base Excess 1.5 A-a Gradient 42.9 Oxyhemoglobin 92.7 Total Hemoglobin 13.4 O2 Delivery Device Room air O2 Liters/Min Not Reportable FiO2 21 Sodium Potassium Chloride Carbon Dioxide Anion Gap BUN Creatinine Estim Creat Clear Calc Estimated GFR Glucose POC Capillary Glucose Lactic Acid 2.8 H Calcium Phosphorus Magnesium Total Bilirubin AST ALT Alkaline Phosphatase Ammonia 45 H Total Protein Albumin Procalcitonin 4.9 10/25/24 10/25/24 12:25 14:03 WBC RBC Hgb Hct MCV MCH MCHC RDW Plt Count MPV Immature Gran % (Auto) Neut % (Auto) Lymph % (Auto) [place] % (Auto) Eos % (Auto) Baso % (Auto) Lymph # (Auto) [place] # (Auto) Eos # (Auto) Baso # (Auto) Abs Immat Gran (auto) Absolute Neuts (auto) Absolute Nucleated RBC Nucleated RBC % Puncture Site ABG pH ABG pCO2 ABG pO2 ABG PO2/FiO2 Ratio ABG HCO3 ABG O2 Saturation ABG O2 Content ABG Base Excess A-a Gradient Oxyhemoglobin Total Hemoglobin O2 Delivery Device O2 Liters/Min FiO2 Sodium Potassium Chloride Carbon Dioxide Anion Gap BUN Creatinine Estim Creat Clear Calc Estimated GFR Glucose POC Capillary Glucose 242 H Lactic Acid 1.1 Calcium Phosphorus Magnesium Total Bilirubin AST ALT Alkaline Phosphatase Ammonia Total Protein Albumin Procalcitonin
--- NOTE | 2024-10-25 16:07 | PC.NURSE ---
farrowing worker Chelita verified code status change for Khalif. at bedside requesting DNR. Dr. Goldsmith called at 1500. Rupal asked that order be placed in for DNR.
--- NOTE | 2024-10-25 16:18 | PCPTNOTE ---
The patient treatment was not able to be completed today due to patient's medical condition. Will plan to continue treatment per plan of care.
[2024-10-25 16:54] LABS: Glucose Point of Care 237 mg/dl (65-105)
[2024-10-25] MEDS: ACETAMINOPHEN ELIXIR 325 MG/10.15 ML UDC 650 MG FEED TUBE (20:15)
[2024-10-25] MEDS: SENNA/DOCUSATE SODIUM TABLET 1 TAB PO (20:16)
[2024-10-25 21:07] LABS: Glucose Point of Care 240 mg/dl (65-105)
[2024-10-26] VITALS (15 sets, daily range): BP systolic 96–130; BP diastolic 57–66; PULSE 89–111; RESP 20–46; TEMP 36.6–40.3; O2SAT 93–97
[2024-10-26 01:12] LABS: Glucose Point of Care 164 mg/dl (65-105)
[2024-10-26 01:50] LABS: MRSA (PCR) DETECTED (NOT DETECTE)
[2024-10-26] MEDS: IPRATROPIUM 0.5 MG/ALBUTEROL SULFATE 2.5 MG AMPUL.NEB 3 ML INHALATION (01:52)
[2024-10-26] MEDS: PIPERACILLIN/TAZ 2.25G/NS 50ML 2.25 GM/50 ML BAG IVPB (02:00)
[2024-10-26] MEDS: MIDODRINE HCL 10 MG TABLET FEED TUBE (02:00)
[2024-10-26 05:04] LABS: Glucose Point of Care 230 mg/dl (65-105)
[2024-10-26] MEDS: INSULIN ASPART (*BKC) 100 UNITS/ML SUB-Q (05:06)
[2024-10-26] MEDS: CENTRAL LINE FLUSH 10 ML IV PUSH ×2 (05:07)
[2024-10-26 05:34] LABS: Basophils Percent Auto 0.4 % (0.2-1.2); Eosinophils Percent Auto 0.1 % (0-4.4); Hematocrit 38.5 % (42.0-52.0); Hemoglobin 12.4 g/dL (14.0-18.0); Immature Granulocyte Absolute 0.06 K/mm3 (0.00-0.031); Immature Granulocyte Percent A 0.5 % (0-0.5); Lymphocytes Absolute Auto 1.36 K/mm3 (0.9-3.2); Lymphocytes Percent Auto 12.1 % (18.3-44.2); Mean Corpuscular HGB Conc 32.2 g/dl (32-36); Mean Corpuscular Hemoglobin 31.2 pg (26-34); Mean Platelet Volume 11.6 fl (7.4-10.4); Monocytes Absolute Auto 1.4 K/mm3 (0.1-0.6); Monocytes Percent Auto 12.5 % (2.6-8.5); Neutrophils Absolute Auto 8.3 K/mm3 (1.3-6.7); Neutrophils Percent Auto 74.4 % (45.5-73.1); Platelet Count Result 119 k/mm3 (150-375); Red Blood Count 3.97 M/mm3 (4.6-6.20); Red Cell Distribution Width 20.5 % (11.5-14.5); White Blood Count 11.2 K/mm3 (4.5-10.0)
[2024-10-26] MEDS: ACETAMINOPHEN ELIXIR 325 MG/10.15 ML UDC 650 MG FEED TUBE (05:41)
[2024-10-26 05:55] LABS: Alanine Aminotransferase 21 U/L (6-50); Albumin Level 3.8 g/dL (3.5-5.1); Alkaline Phosphatase 121 U/L (38-126); Anion Gap 18 mmol/L (4-12); Aspartate Amino Transferase 41 U/L (17-59); Bilirubin,Total 2.2 mg/dL (0.2-1.3); Calcium 8.9 mg/dL (8.4-10.2); Carbon Dioxide 25 mmol/L (22-30); Chloride 95 mmol/L (98-107); Glucose 233 mg/dL (65-110); Magnesium 2.7 mg/dL (1.6-2.3); Potassium 5.8 mmol/L (3.4-5.0); Sodium 138 mmol/L (137-145)
[2024-10-26 05:57] LABS: Vancomycin Random 26.8 ug/mL (10-20)
[2024-10-26 06:07] LABS: Estimated CRCL calculation 7 ml/min; Estimated Glomerular Filt Rate 9
[2024-10-26 06:19] LABS: Blood Urea Nitrogen 122 mg/dL (9-20)
[2024-10-26 06:24] LABS: Ammonia 87 umol/L (9-30)
[2024-10-26] MEDS: NEOMYCIN/POLYMYXIN/BACITRACIN OINTMENT 15 GM TUBE 1 APPLIC TOPICAL (09:12)
[2024-10-26] MEDS: MORPHINE SULFATE INJ (*CRX) 10 MG/ML AMP 5 MG IV PUSH (09:54)
--- NOTE | 2024-10-26 10:44 | P.PNCROSS_ITS ---
Event Note Event Note Event Note: Patient was in ICU room 2 as an IMU patient. I was asked to evaluate patient f or intubation due to his respiratory and mental status. Patient had modified code with said no CPR. I spoke to Dr. Goldsmith had conversation patient's 5 yesterday. He arrived at bedside and patient's also came to visit patient. He met with her and had long discussion with patient's current condition and goals of care. After that I have met with patient's and her daughter was on the phone. IV revisited goals of care and updated her with patient's current condition and discussed option of intubation and continued aggressive treatment on life support. After discussion with hospitalist patient's had decided the patient would not want to continue with further life support measures at this time. She has decided not to proceed with re-intubation and instead proceed with comfort care. I have discussed with Dr. Dr. Goldsmith who continue managing patient at this time.
--- NOTE | 2024-10-26 11:56 | PC.NURSE ---
Patient transferred to room 250.
[2024-10-26] MEDS: LORazepam INJ (*CRX) 2 MG/ML VIAL IV PUSH ×3 (12:26→22:47)
--- NOTE | 2024-10-26 12:31 | PCNFU ---
Nutrition Follow-Up Complete: Inadequate oral intake related to swallowing difficulties as evidenced by need for MBSS Goal: Meet estimated nutritional needs. Patient is not meeting goal. Pt current nutrition is Nepro at 40 ml/hr with Prosource BID. Last recorded weight is 83.3 kg Bowel Motility: +BM reported 10/26 Meds: Morphine Labs Reviewed: Mg 2.7, BUN 122, Cr 6.32, Glu 233, Hct 38.4, Hgb 12.4 Additional Notes: Patient continues on tube feedings of Nepro at 40 ml/hr and tolerating. Plans for comfort measures today. No further nutritional interventions needed at this time. Monitoring intakes, weights, labs, swallowing evaluation, diet orders Following daily in rounds, reassess Every Friday and Friday.
[2024-10-26] MEDS: MORPHINE SULFATE (*CRX) 2 MG/ML INJ IV PUSH ×2 (15:02→20:32)
--- NOTE | 2024-10-26 15:03 | PM.IMPN ---
Progress Note: A&P Assessment and Plan (1) Respiratory failure: Code(s): J96.90 - Respiratory failure, unspecified, unspecified whether with hypoxia or hypercapnia Status: Acute Assessment and Plan: Acute respiratory failure likely related to pneumonia, altered mental status, airway protection -10/08: Intubated -10/16: Extubated -continue bronchodilators and Pulmicort -chest x-ray reviewed, will have respiratory therapist encourage incentive spirometry, EzPAP -10/17 pt failed his bedside swallow -10/18: Failed modified barium swallow -10/19: appreciate IR placing Dobbhoff tube, patient started on tube feeds and tolerating -PT/OT to continue to follow, up in chair, significant weakness Recheck chest x-ray with congestive changes 10/24/2024 10/25/2024: Mildly tachypneic. ABG with respiratory alkalosis suspect aspiration/sepsis. CT chest does reveal right lower lobe pneumonia. Patient continued to decline and had impending respiratory failure however transition to comfort measures 10/26/2024 (2) Septic shock: Code(s): A41.9 - Sepsis, unspecified organism; R65.21 - Severe sepsis with septic shock Status: Acute Assessment and Plan: Patient presented with altered mental status, hypotension, lactic acidosis -septic shock likely related to bacteremia, bilateral pneumonia along with influenza -status post azithromycin, ceftriaxone and vancomycin Remains off all antibiotics -10/08: Blood cultures growing strep mitis -10/10 repeat set of blood culture sent and negative till now -TTE and ROBERT are negative for evidence of valve vegetations -patient remained on Levophed but off of epinephrine and vasopressin, maintain SBP >90 mmHg. (patient's blood pressure is normally runs low according to his family) -weaning hydrocortisone -patient on midodrine, currently NPO after extubation, patient received above tube and hence restarted midodrine after the 10/18: Still requiring Levophed, afebrile, WBC trending down. 10/18: Blood cultures negative x2 10/20: Levophed being weaned, increased midodrine to q.6 hours. 10/21: Off Levophed since 8:30 p.m. on 10/20/2024. Remains on midodrine 10/25 patient febrile. Pancultured. Start vancomycin and Zosyn. Chest x-ray improved congestion. CT chest abdomen pelvis with right lower lobe pneumonia. Vanc Zosyn as ordered will be continued. Patient continued to decline and had impending respiratory failure however transition to comfort measures 10/26/2024 (3) Bacteremia: Code(s): R78.81 - Bacteremia Status: Acute Assessment and Plan: 10/08: Blood cultures growing strep mitis group 3/9 repeat set of blood culture sent and negative till now Completed antibiotic course TTE as below ROBERT negative for evidence of vegetation Pancultured again 10/25/2024 (4) Influenza A: Code(s): J10.1 - Influenza due to other identified influenza virus with other respiratory manifestations Status: Acute Assessment and Plan: Completed a course of renally dosed Tamiflu (5) Pneumonia: Code(s): J18.9 - Pneumonia, unspecified organism Status: Acute Assessment and Plan: Chest x-ray showed pneumonia, CT chest showed pneumonitis, -off all antibiotic Repeat CT chest with right lower lobe pneumonia suspect aspiration re-initiated vancomycin and Zosyn 10/25/2024 (6) Altered mental status: Code(s): R41.82 - Altered mental status, unspecified Status: Acute Assessment and Plan: Head CT was negative for any acute changes at the time presentation Slowly improving Sudden decline 10/25/2024 with altered mental status. CT head is negative Suspect sepsis with fever Ammonia level high on lactulose (7) End-stage renal disease on hemodialysis: Code(s): N18.6 - End stage renal disease; Z99.2 - Dependence on renal dialysis Status: Acute Assessment and Plan: End-stage renal disease on dialysis (M, W, F) -dialysis per Nephrology. (8) Diabetes: Qualifiers: Diabetes mellitus type: type 2 Diabetes mellitus intermediate frame tender insulin use: without shelter use Diabetes mellitus complication status: with kidney complications Diabetes mellitus complication detail: with chronic kidney disease Chronic kidney disease stage: on chronic dialysis Qualified Code(s): E11.22 - Type 2 diabetes mellitus with diabetic chronic kidney disease; N18.6 - End stage renal disease; Z99.2 - Dependence on renal dialysis Code(s): E11.9 - Type 2 diabetes mellitus without complications Status: Chronic Assessment and Plan: Continue current sliding scale and -Lantus discontinued as patient NPO (9) Atrial fibrillation: Code(s): I48.91 - Unspecified atrial fibrillation Status: Acute Assessment and Plan: Patient has a history of atrial fibrillation, remains in AFib, rate controlled -has been on apixaban, post extubation was started heparin infusion and apixaban was held as he did not have and OG/NG tube -patient failed his bedside swallow and modified barium swallow -10/19/2024 Dobbhoff tube was inserted by IR, apixaban was restarted and heparin infusion was discontinued Will hold on apixaban due to diffuse ecchymosis (10) Dysphagia: Code(s): R13.10 - Dysphagia, unspecified Status: Acute Assessment and Plan: Failed swallow evaluation Currently on Dobbhoff If no improvement will likely need G-tube placement discussed with the family Plan DVT prophylaxis: Restarted Eliquis on 10/19 after patient got his Dobbhoff tube placed, off heparin infusion Stress ulcer prophylaxis: Protonix Nutrition: Tube feeds through Dobbhoff tube. ( Patient failed bedside swallow evaluation and modified barium swallow) Code Status: Transition to do not resuscitate Discussed with patient's spouse and updated them with patient's condition and plan of care. I answered all the questions. Comfort measures initiated 10/26/2024 Subjective Date/time seen: 10/26/24 15:03 Interval history: Overnight patient remained febrile. Patient continued to decline. Patient less responsive. Patient was moved to the ICU for cooling blankets. Family at bedside and discussed with them. Patient will need to be intubated if continued aggressive treatment will be performed. Patient has poor prognosis discussed with the family and comfort measures were also reviewed with them. Family decides to go with comfort care. Patient has been transition to comfort measures this a.m. Review of Systems Review of Systems: ROS unobtainable: Yes unobtainable due to mental status Exam Narrative: General: Patient on room air, patient unresponsive check hip neck HEENT:? Pupils equal and reactive bilaterally, Dobhoff tube in place Neck:? Supple Respiratory:? Coarse breath sounds bilaterally, decreased at bases, no wheezing, adequate air entry Cardiac:? Irregularly irregular, rate controlled Abdomen:? Soft, nontender, nondistended, protuberant, hypoactive bowel sounds Extremities:? Bilateral lower extremity edema is improved significantly, palpable pedal pulses Neuro:? Patient is unresponsive not Following commands, generalized weakness Skin:? Multiple bruising noted upper and lower extremities Psych:? Could not be evaluated Objective Data Vital Signs Vital Signs: Vital Signs - 24 hr 10/25/24 16:00 10/25/24 16:00 10/25/24 20:00 Temperature 101.1 F H Pulse Rate 102 H 91 Respiratory Rate 24 H Blood Pressure 124/53 L Pulse Oximetry 94 Oxygen Delivery Room Air Fraction of Inspired Oxygen 10/25/24 20:00 10/25/24 20:16 10/25/24 20:32 Temperature 98.1 F Pulse Rate 95 90 Respiratory Rate 24 H Blood Pressure 83/49 L Pulse Oximetry 96 100 Oxygen Delivery Room Air Fraction of Inspired Oxygen 10/25/24 20:32 10/25/24 20:43 10/25/24 22:00 Temperature Pulse Rate 93 93 97 Respiratory Rate 20 20 Blood Pressure Pulse Oximetry Oxygen Delivery Fraction of Inspired Oxygen 10/26/24 00:00 10/26/24 00:00 10/26/24 00:00 Temperature 98.0 F Pulse Rate 92 98 Respiratory Rate 24 H Blood Pressure 122/61 Pulse Oximetry 97 Oxygen Delivery Room Air Fraction of Inspired Oxygen 10/26/24 01:51 10/26/24 02:00 10/26/24 02:26 Temperature Pulse Rate 93 96 93 Respiratory Rate 20 20 Blood Pressure Pulse Oximetry Oxygen Delivery Fraction of Inspired Oxygen 10/26/24 03:57 10/26/24 04:00 10/26/24 04:00 Temperature 98 F Pulse Rate 103 H 111 H Respiratory Rate 24 H Blood Pressure 125/63 Pulse Oximetry 97 Oxygen Delivery Room Air Fraction of Inspired Oxygen 21 10/26/24 05:40 10/26/24 05:41 10/26/24 05:56 Temperature 104.2 F H 104.2 F H Pulse Rate 97 Respiratory Rate 46 H Blood Pressure 130/57 L Pulse Oximetry 96 Oxygen Delivery Fraction of Inspired Oxygen 10/26/24 06:00 10/26/24 06:41 10/26/24 08:00 Temperature 104.5 F H 103.8 F H Pulse Rate 101 H 92 Respiratory Rate 37 H Blood Pressure 96/58 L Pulse Oximetry 96 Oxygen Delivery Fraction of Inspired Oxygen 10/26/24 08:00 10/26/24 08:00 10/26/24 08:15 Temperature 103.5 F H Pulse Rate 100 98 Respiratory Rate 38 H Blood Pressure 126/66 Pulse Oximetry 96 Oxygen Delivery Room Air Fraction of Inspired Oxygen 10/26/24 08:30 10/26/24 10:00 Temperature 103 F H Pulse Rate 95 97 Respiratory Rate 38 H Blood Pressure 103/58 L Pulse Oximetry 96 Oxygen Delivery Fraction of Inspired Oxygen Intake/Output Intake/Output: Intake & Output 10/23/24 10/24/24 10/25/24 10/26/24 23:59 23:59 23:59 23:59 Intake Total 803 243 0345 522 Output Total 0 0 0 0 Balance 221 699 8443 522 Meds/Results Medications: Active Medications Generic Name Dose Route Start Last Admin Trade Name Freq PRN Reason Stop Dose Admin Albumin Human 50 mls @ 999 mls/hr 10/14/24 06:24 10/23/24 14:44 Albutein IVPB 11/13/24 06:23 999 mls/hr Q10M PRN Administration HYPOTENSION Lorazepam 2 mg 10/26/24 08:58 10/26/24 12:26 Lorazepam Inj (*Crx) 2 Mg/Ml Vial IV PUSH 2 mg Q1H PRN Administration Anxiety/Comfort Morphine Sulfate 2 mg 10/26/24 08:58 Morphine Sulfate (*Crx) 2 Mg/Ml Inj IV PUSH Q30M PRN COMFORT Neomycin/Polymyxin/Bacitracin 1 applic 10/17/24 09:00 10/26/24 09:12 Neomycin/Polymyxin/Bacitracin Ointment 15 Gm Tube TOPICAL 1 applic QAM CESAR Administration Radiology Results: ITS Impressions Pelvis X-Ray 10/08/24 22:22 IMPRESSION: As above. Chest CT 10/08/24 23:27 IMPRESSION: 1. Interstitial thickening in the lower lobes which may indicate pneumonitis. Edema is less likely. 2. Cardiomegaly. 3. Cholelithiasis 4. Splenic cysts unchanged. Abdomen X-Ray 10/13/24 15:22 IMPRESSION: Nasogastric tube in good position and ready for immediate use. Modified Barium Swallow 10/18/24 17:03 IMPRESSION: Oropharyngeal dysphagia including laryngeal penetration with aspiration. Please correlate with speech pathologist findings and specific feeding recommendations. Head CT 10/25/24 10:28 IMPRESSION: No acute intracranial findings. Chest/Abdomen/Pelvis CT 10/25/24 13:03 IMPRESSION: CHEST: 1. Cardiomegaly. 2. Groundglass appearance in the right upper lobe which may indicate atelectasis versus pneumonia versus edema. 3. Opacification in the right lower lobe suggestive of pneumonia. ABDOMEN/PELVIS: 1. No evidence of appendicitis, diverticulitis or intestinal obstruction. 2. Rounded density seen in the left kidney midpole which may be a mass with calcification. Further evaluation advised. 3. Bilateral kidney cysts. Bilateral kidney stones. 4. Splenic cysts unchanged. 5. Cholelithiasis. 6. Anterior abdominal wall hernia with bowel content and no obstruction. Chest X-Ray 10/26/24 06:17 IMPRESSION: 1. Stable airspace opacities in the mid and lower lung zones, consistent with atelectasis versus pneumonia. 2. Cardiomegaly. Labs Labs: Laboratory Results - last 24 hr 10/25/24 10/25/24 10/25/24 13:50 16:35 21:04 WBC RBC Hgb Hct MCV MCH MCHC RDW Plt Count MPV Immature Gran % (Auto) Neut % (Auto) Lymph % (Auto) [place] % (Auto) Eos % (Auto) Baso % (Auto) Lymph # (Auto) [place] # (Auto) Eos # (Auto) Baso # (Auto) Abs Immat Gran (auto) Absolute Neuts (auto) Absolute Nucleated RBC Nucleated RBC % Sodium Potassium Chloride Carbon Dioxide Anion Gap BUN Creatinine Estim Creat Clear Calc Estimated GFR Glucose POC Capillary Glucose 237 H 240 H Calcium Magnesium Total Bilirubin AST ALT Alkaline Phosphatase Ammonia Total Protein Albumin Nasal MRSA (PCR) Detected A* Random Vancomycin 10/25/24 10/26/24 10/26/24 23:55 05:01 05:21 WBC 11.2 H RBC 3.97 L Hgb 12.4 L Hct 38.5 L MCV 97.0 MCH 31.2 MCHC 32.2 RDW 20.5 H Plt Count 119 L MPV 11.6 H Immature Gran % (Auto) 0.5 Neut % (Auto) 74.4 H Lymph % (Auto) 12.1 L [place] % (Auto) 12.5 H Eos % (Auto) 0.1 Baso % (Auto) 0.4 Lymph # (Auto) 1.36 [place] # (Auto) 1.4 H Eos # (Auto) 0.0 Baso # (Auto) 0.0 Abs Immat Gran (auto) 0.06 H Absolute Neuts (auto) 8.3 H Absolute Nucleated RBC 0.000 Nucleated RBC % 0.0 Sodium 138 Potassium 5.8 H Chloride 95 L Carbon Dioxide 25 Anion Gap 18 H BUN 122 H D Creatinine 6.32 H Estim Creat Clear Calc 7 Estimated GFR 9 L Glucose 233 H POC Capillary Glucose 164 H 230 H Calcium 8.9 Magnesium 2.7 H Total Bilirubin 2.2 H AST 41 ALT 21 Alkaline Phosphatase 121 Ammonia Total Protein 7.0 Albumin 3.8 Nasal MRSA (PCR) Random Vancomycin 26.8 H 10/26/24 05:54 WBC RBC Hgb Hct MCV MCH MCHC RDW Plt Count MPV Immature Gran % (Auto) Neut % (Auto) Lymph % (Auto) [place] % (Auto) Eos % (Auto) Baso % (Auto) Lymph # (Auto) [place] # (Auto) Eos # (Auto) Baso # (Auto) Abs Immat Gran (auto) Absolute Neuts (auto) Absolute Nucleated RBC Nucleated RBC % Sodium Potassium Chloride Carbon Dioxide Anion Gap BUN Creatinine Estim Creat Clear Calc Estimated GFR Glucose POC Capillary Glucose Calcium Magnesium Total Bilirubin AST ALT Alkaline Phosphatase Ammonia 87 H Total Protein Albumin Nasal MRSA (PCR) Random Vancomycin
[2024-10-27] MEDS: MORPHINE SULFATE (*CRX) 2 MG/ML INJ IV PUSH (00:09)
--- NOTE | 2024-10-27 01:15 | PC.NURSE ---
Entered patient's room to find him with no pulse and no respirations. Charge nurse called to bedside to confirm expiration.
== END 2024-10-27 06:02 | disposition expired | DRG 870 ==
LOC: ANHED 21:44 → ANHICU 21:50 → ANHIMU 10-24 17:40 → ANH2MED 10-28 09:33 → ANHICU 10-28 09:33 → ANHIMU 10-28 09:33
PROVIDERS: Emergency Medicine; Internal Medicine; Internal Medicine Nephrology; Physician Assistant; Admitting Provider Internal Medicine; Emergency Provider Emergency Medicine; PCP Family Medicine; Visit Provider Internal Medicine
PROC: B24BZZ4 Ultrasonography of Heart with Aorta, Transesophageal (ICD-10-PCS; CPT 93312; principal; 2024-10-13 14:30)
DX: A41.9 Sepsis, unspecified organism (principal); R65.21 Severe sepsis with septic shock; J10.00 Influenza due to other identified influenza virus with unspecified type of pneumonia; N18.6 End stage renal disease; J96.01 Acute respiratory failure with hypoxia; I13.2 Hypertensive heart and chronic kidney disease with heart failure and with stage 5 chronic kidney disease, or end stage renal disease; N25.81 Secondary hyperparathyroidism of renal origin; I50.9 Heart failure, unspecified; E11.22 Type 2 diabetes mellitus with diabetic chronic kidney disease; E11.42 Type 2 diabetes mellitus with diabetic polyneuropathy; N40.0 Benign prostatic hyperplasia without lower urinary tract symptoms; B95.4 Other streptococcus as the cause of diseases classified elsewhere; R13.10 Dysphagia, unspecified; D50.9 Iron deficiency anemia, unspecified; D63.1 Anemia in chronic kidney disease; D51.9 Vitamin B12 deficiency anemia, unspecified; E78.2 Mixed hyperlipidemia; Z20.822 Contact with and (suspected) exposure to COVID-19; G47.30 Sleep apnea, unspecified; I48.91 Unspecified atrial fibrillation; Z96.653 Presence of artificial knee joint, bilateral; Z79.01 Long term (current) use of anticoagulants; Z98.49 Cataract extraction status, unspecified eye; Z99.2 Dependence on renal dialysis; Z51.5 Encounter for palliative care
CPT/HCPCS: 31500; 36415; 36556; 36569; 36600; 43752; 70450; 71045; 71250; 72170; 74176; 80048; 80053; 80202; 82140; 82375; 82805; 82948; 83050; 83605; 83735; 84100; 84145; 85018; 85025; 85027; 85055; 85610; 85730; 86706; 86738; 87040; 87181; 87340; 87637; 87641; 92610; 92611; 93005; 93306; 93312; 93320; 93325; 94002; 94003; 94640; 96365; 96366; 96367; 96375; 96376; 97110; 97161; 97167; 97530; 99291; A9270; C1751; C8925; G0257; G0378; J0171; J0330; J0456; J0612; J0613; J0696; J1644; J1720; J1815; J2003; J2060; J2250; J2270; J2470; J2543; J3010; J3370; J7030; J7040; J7060; P9047; Q5105; Q9957